=== PATIENT | female | born 1990 | race Caucasian/White ===

== ENCOUNTER 2021-04-03 04:20 | Inpatient (IN) | payer MEDICARE ==
[2021-04-03] MEDS ORDERED: HYDROmorphone 1 MG/ML 1 ML SYRINGE IVP STA (04:29)
[2021-04-03] MEDS ORDERED: IPRATROPIUM-ALBUTEROL 3 ML NEB INHALATION STA (04:29)
[2021-04-03] MEDS ORDERED: ENALAPRILAT 1.25 MG/ML 1 ML VIAL IVP STA ×2 (04:29→06:26)
[2021-04-03] MEDS ORDERED: ACETAMINOPHEN TAB 500 MG TAB PO STA ×2 (04:29→07:48)
[2021-04-03] MEDS ORDERED: hydrALAZINE HCL 20 MG/ML 1 ML VIAL IVP STA (04:29)
[2021-04-03] MEDS ORDERED: SODIUM CHLORIDE 0.9% 1,000 ML IV STA (04:29)
--- NOTE | 2021-04-03 04:37 | ED ---
SOB HPI - General Chief Complaint: Shortness of Breath Stated Complaint: Cough Time Seen by Provider: 04/03/21 04:21 Source: patient, EMS, RN notes reviewed, old records reviewed Mode of arrival: EMS Limitations: no limitations - History of Present Illness MD Complaint: shortness of breath, cough -: days(s) Radiation: other Severity: severe Severity scale (1-10): 10 Quality: aching, throbbing Consistency: constant Improves With: oxygen Worsens With: exertion Known History Of: COPD, congestive heart failure Context: recent URI, anxiety, recent illness Associated Symptoms: chest pain, sputum production, diaphoresis Treatments Prior to Arrival: none - Related Data Allergies Allergy/AdvReac Type Severity Reaction Status Date / Time iodine Allergy Anaphylaxis Verified 04/03/21 04:33 Review of Systems ROS Statement: Those systems with pertinent positive or pertinent negative responses have been documented in the HPI. ROS Other: All systems not noted in ROS Statement are negative. Past Medical History Past Medical History: CVA/TIA, Dialysis, Hypertension Additional Past Medical History / Comment(s): Kidney disease History of Any Multi-Drug Resistant Organisms: None Reported Additional Past Surgical History / Comment(s): fistula left arm Past Psychological History: No Psychological Hx Reported Smoking Status: Never smoker Past Alcohol Use History: None Reported Past Drug Use History: None Reported General Exam Limitations: no limitations General appearance: alert, anxious, in distress Head exam: Present: atraumatic, normocephalic, normal inspection Eye exam: Present: normal appearance, PERRL, EOMI. Absent: scleral icterus, conjunctival injection, periorbital swelling ENT exam: Present: normal exam, mucous membranes dry, mucous membranes moist Neck exam: Present: normal inspection. Absent: tenderness, meningismus, lymphadenopathy Respiratory exam: Present: respiratory distress, rales, rhonchi, accessory muscle use, decreased breath sounds, prolonged expiratory. Absent: wheezes, stridor Cardiovascular Exam: Present: normal rhythm, bradycardia, normal heart sounds. Absent: systolic murmur, diastolic murmur, rubs, gallop, clicks GI/Abdominal exam: Present: soft, normal bowel sounds. Absent: distended, tenderness, guarding, rebound, rigid Extremities exam: Present: normal inspection, full ROM, normal capillary refill. Absent: tenderness, pedal edema, joint swelling, calf tenderness Back exam: Present: normal inspection Neurological exam: Present: alert, oriented X3, CN II-XII intact Psychiatric exam: Present: normal affect, normal mood Skin exam: Present: warm, dry, intact, normal color. Absent: rash Course Vital Signs 04/03/21 04/03/21 04/03/21 04:20 04:30 05:00 Temperature 98.3 F Pulse Rate 93 97 Respiratory 22 36 H 32 H Rate Blood Pressure 236/117 237/121 O2 Sat by Pulse 92 L 86 L Oximetry 04/03/21 04/03/21 05:31 05:52 Temperature Pulse Rate 101 H Respiratory 28 H Rate Blood Pressure 222/134 O2 Sat by Pulse 93 L 97 Oximetry - Reevaluation(s) Reevaluation #1: 04/03/21 06:31 Medical record is reviewed Reevaluation #2: 04/03/21 06:32 Patient continues to cough up blood here in the ER Reevaluation #3: 04/03/21 06:32 Patient is having improved her blood pressure here in the emergency room titrated from nitro drip to Vasotec - Consultations Consultation #1: Spoke with Dr. fermin who will admit this patient Medical Decision Making - Medical Decision Making 30 female to the emergency room. Patient presents today for evaluation regarding severe shortness of breath hypertensive emergency with hemoptysis. Patient be admitted for severe weakness blood pressure control and monitoring of pulse oximetry and cardiac and need for dialysis - Lab Data Result diagrams: 04/03/21 04:47 04/03/21 04:47 Lab Results 04/03/21 04/03/21 04/03/21 Range/Units 04:47 04:47 04:47 WBC 16.0 H (3.8-10.6) k/uL RBC 3.36 L (3.80-5.40) m/uL Hgb 10.3 L (11.4-16.0) gm/dL Hct 30.6 L (34.0-46.0) % MCV 91.2 (80.0-100.0) fL MCH 30.7 (25.0-35.0) pg MCHC 33.7 (31.0-37.0) g/dL RDW 14.2 (11.5-15.5) % Plt Count 254 (150-450) k/uL MPV 8.8 Neutrophils % 91 % Lymphocytes % 3 % Monocytes % 3 % Eosinophils % 1 % Basophils % 0 % Neutrophils # 14.6 H (1.3-7.7) k/uL Lymphocytes # 0.5 L (1.0-4.8) k/uL Monocytes # 0.5 (0-1.0) k/uL Eosinophils # 0.2 (0-0.7) k/uL Basophils # 0.1 (0-0.2) k/uL PT 10.1 (9.0-12.0) sec INR 0.9 (<1.2) APTT 23.0 (22.0-30.0) sec Sodium 133 L (137-145) mmol/L Potassium 4.9 (3.5-5.1) mmol/L Chloride 93 L (98-107) mmol/L Carbon Dioxide 25 (22-30) mmol/L Anion Gap 15 mmol/L BUN 61 H (7-17) mg/dL Creatinine 9.30 H* (0.52-1.04) mg/dL Est GFR (CKD-EPI)AfAm 6 (>60 ml/min/1.73 sqM) Est GFR (CKD-EPI)NonAf 5 (>60 ml/min/1.73 sqM) Glucose 595 H* (74-99) mg/dL Calcium 9.1 (8.4-10.2) mg/dL Magnesium 2.0 (1.6-2.3) mg/dL Total Bilirubin 0.5 (0.2-1.3) mg/dL AST 25 (14-36) U/L ALT 17 (4-34) U/L Alkaline Phosphatase 135 H (38-126) U/L Lactate Dehydrogenase 813 H (313-618) U/L C-Reactive Protein 1.5 H (<1.0) mg/dL Total Protein 6.9 (6.3-8.2) g/dL Albumin 4.3 (3.5-5.0) g/dL Coronavirus (PCR) (Not Detectd) 04/03/21 Range/Units 04:47 WBC (3.8-10.6) k/uL RBC (3.80-5.40) m/uL Hgb (11.4-16.0) gm/dL Hct (34.0-46.0) % MCV (80.0-100.0) fL MCH (25.0-35.0) pg MCHC (31.0-37.0) g/dL RDW (11.5-15.5) % Plt Count (150-450) k/uL MPV Neutrophils % % Lymphocytes % % Monocytes % % Eosinophils % % Basophils % % Neutrophils # (1.3-7.7) k/uL Lymphocytes # (1.0-4.8) k/uL Monocytes # (0-1.0) k/uL Eosinophils # (0-0.7) k/uL Basophils # (0-0.2) k/uL PT (9.0-12.0) sec INR (<1.2) APTT (22.0-30.0) sec Sodium (137-145) mmol/L Potassium (3.5-5.1) mmol/L Chloride (98-107) mmol/L Carbon Dioxide (22-30) mmol/L Anion Gap mmol/L BUN (7-17) mg/dL Creatinine (0.52-1.04) mg/dL Est GFR (CKD-EPI)AfAm (>60 ml/min/1.73 sqM) Est GFR (CKD-EPI)NonAf (>60 ml/min/1.73 sqM) Glucose (74-99) mg/dL Calcium (8.4-10.2) mg/dL Magnesium (1.6-2.3) mg/dL Total Bilirubin (0.2-1.3) mg/dL AST (14-36) U/L ALT (4-34) U/L Alkaline Phosphatase (38-126) U/L Lactate Dehydrogenase (313-618) U/L C-Reactive Protein (<1.0) mg/dL Total Protein (6.3-8.2) g/dL Albumin (3.5-5.0) g/dL Coronavirus (PCR) Not Detected (Not Detectd) - Radiology Data Radiology results: report reviewed (Chest x-ray shows significant diffuse pleural edema), image reviewed Critical Care Time Critical Care Time: Yes Total Critical Care Time: 31 Disposition Clinical Impression: Acute pulmonary edema, Congestive heart failure, Hypertensive emergency, CKD (chronic kidney disease), ARF (acute renal failure), Hyperglycemia Disposition: ADMITTED IP TO THIS [facility] Condition: Serious Is patient prescribed a controlled substance at d/c from ED?: No Referrals: Edith Cruz MD [Primary Care Provider] - 1-2 days
[2021-04-03 04:59] LABS: Basophils # (A) 0.1 k/uL (0-0.2); Basophils % (A) 0 %; Eosinophils # (A) 0.2 k/uL (0-0.7); Eosinophils % (A) 1 %; HCT 30.6 % (34.0-46.0); HGB 10.3 gm/dL (11.4-16.0); Lymphocytes # (A) 0.5 k/uL (1.0-4.8); Lymphocytes % (A) 3 %; MCH 30.7 pg (25.0-35.0); MCHC 33.7 g/dL (31.0-37.0); MCV 91.2 fL (80.0-100.0); Mean Platelet Volume 8.8; Monocytes # (A) 0.5 k/uL (0-1.0); Monocytes % (A) 3 %; Neutrophils # (A) 14.6 k/uL (1.3-7.7); Neutrophils % (A) 91 %; Platelet Count 254 k/uL (150-450); RBC 3.36 m/uL (3.80-5.40); RDW 14.2 % (11.5-15.5)
[2021-04-03] MEDS ORDERED: PROCHLORPERAZINE INJ 10 MG/2 ML VIAL IVP STA (05:02)
--- NOTE | 2021-04-03 05:09 | XR ---
EXAMINATION TYPE: XR chest 1V portable DATE OF EXAM: 04/03/2021 COMPARISON: NONE HISTORY: Pneumonia TECHNIQUE: Single view FINDINGS: Heart is enlarged. There is patchy pulmonary interstitial and airspace edema. There is no d efinite pleural effusion. Bony thorax is intact. IMPRESSION: Pulmonary edema. This could relate to heart failure or RDS.
[2021-04-03 05:15] LABS: Albumin 4.3 g/dL (3.5-5.0); C Reactive Protein 1.5 mg/dL (<1.0); Calcium 9.1 mg/dL (8.4-10.2); Potassium 4.9 mmol/L (3.5-5.1); Total Bilirubin 0.5 mg/dL (0.2-1.3); Total Protein 6.9 g/dL (6.3-8.2)
[2021-04-03] MEDS ORDERED: NITROGLYCERIN-D5W PMX 50 MG in DEXTROSE/WATER 1 250ML.BAG IV ONE (05:15)
[2021-04-03 05:27] LABS: INR 0.9 (<1.2); Prothrombin Time 10.1 sec (9.0-12.0)
[2021-04-03] MEDS ORDERED: INSULIN REGULAR 100 UNIT/ML VIAL (IM/SQ) SQ ONE (06:33)
[2021-04-03] MEDS ORDERED: INSULIN REGULAR 100 UNIT/ML VIAL (IV) IV ONE (06:33)
[2021-04-03] MEDS: SODIUM CHLORIDE 0.9% 1,000 ML IV SCH ×2 (06:37→14:04)
[2021-04-03 06:41] LABS: Glucose,Whole Blood 587 mg/dL (75-99)
[2021-04-03 07:41] LABS: Glucose,Whole Blood 532 mg/dL (75-99)
[2021-04-03] MEDS: SODIUM CHLORIDE 0.9% 1,000 ML IV ONE ×2 (07:46→08:11)
[2021-04-03] MEDS ORDERED: INSULIN DETEMIR (LEVEMIR) 100 UNIT/ML SYR SQ SCH (09:00)
[2021-04-03 09:06] LABS: Glucose,Whole Blood 364 mg/dL (75-99)
[2021-04-03] MEDS: amLODIPine 10 MG TAB PO SCH (09:28)
[2021-04-03] MEDS: FUROSEMIDE 40 MG TAB PO SCH ×2 (09:28→16:35)
[2021-04-03] MEDS: HEPARIN SODIUM,PORCINE/PF 5,000 UNIT/0.5 ML SYRINGE SQ SCH ×2 (09:28→21:48)
[2021-04-03] MEDS: hydrALAZINE HCL 25 MG TAB PO SCH ×3 (09:29→21:49)
[2021-04-03] MEDS: carvediloL 12.5 MG TAB PO SCH ×2 (09:29→16:35)
[2021-04-03] MEDS: hydrALAZINE HCL 50 MG TAB PO SCH ×3 (09:29→21:49)
[2021-04-03] MEDS: ASPIRIN 81 MG PO SCH (09:29)
[2021-04-03] MEDS: PANTOPRAZOLE 40 MG TABLET PO SCH (09:29)
[2021-04-03] MEDS: ISOSORBIDE MONONITRATE ER 30 MG TAB.ER.24H PO SCH (09:29)
[2021-04-03] MEDS: INSULIN ASPART (NovoLOG) 100 UNIT/ML VIAL SQ SCH ×4 (09:32→21:48)
[2021-04-03] MEDS: ESCITALOPRAM 10 MG TAB PO SCH (10:06)
[2021-04-03 11:11] LABS: Glucose,Whole Blood 86 mg/dL (75-99)
[2021-04-03 11:44] LABS: Glucose,Whole Blood 61 mg/dL (75-99)
[2021-04-03] MEDS: DEXTROSE 50% SYRINGE 50 ML IVP STA ×3 (11:51→14:57)
--- NOTE | 2021-04-03 12:06 | CONS ---
CONSULTATION REASON FOR CONSULT: End-stage renal disease. HISTORY OF PRESENT ILLNESS: The patient is a 30-year-old female with end-stage renal disease, on hemodialysis on a Monday, Monday, Monday schedule. The patient missed her dialysis on Monday and is admitted now with complaints of significant shortness of breath. She has been having cough which gets worse when she lays down. Patient reports that her son was sick and was in the ER yesterday and therefore she could not go to her scheduled dialysis treatment. PAST MEDICAL HISTORY: End-stage renal disease, CKD mineral bone disorder, hypertension, type 1 diabetes and gastroesophageal reflux disease. PAST SURGICAL HISTORY: AV fistula. SOCIAL HISTORY: Negative for smoking, drug abuse or alcohol abuse. MEDICATIONS: Prior to admission included vitamin D, insulin, Norvasc, Protonix, Imdur, Avapro, PhosLo, hydralazine, Lasix, Lexapro, Coreg, aspirin. REVIEW OF SYSTEMS: As per HPI. Other systems negative. EXAMINATION: Comfortable. Blood pressure 159/87, earlier this morning, 182/94, and temperature 98.3, T-max 100.7 earlier. Examination of the heart S1, S2. Examination of the lungs, bilateral breath sounds are heard. Abdomen is soft, nontender. Examination of lower extremities shows 1+ edema. PERSONNEL GENERALIST MANAGER exam grossly intact. LABS: Show hemoglobin 10.3, sodium 133, potassium 4.9, BUN 61, creatinine 9.3, glucose 595. ASSESSMENT: 1. End-stage renal disease, on hemodialysis on a Monday, Monday, Monday schedule via left forearm AV fistula. 2. Volume overload expect improvement with hemodialysis today. 3. Hyperglycemia with blood sugar 595. When patient initially came in, it is decreased to 364 and now 86. 4. CKD mineral bone disorder. 5. Hypertension partly volume sensitive. PLAN: Hemodialysis today. UF of about 4 L as tolerated. Discontinue IV fluids. Continue with phosphate binders. Continue home blood pressure medications. Check UA as patient had low-grade fever. Chest x-ray does not show significant infiltrates, mostly changes suggestive of congestive heart failure. Consider repeating chest x-ray post dialysis if patient remains febrile. MMODL / IJN: [id number] /
[2021-04-03 12:13] LABS: Glucose,Whole Blood 89 mg/dL (75-99)
--- NOTE | 2021-04-03 13:11 | P.HPIM ---
History of Present Illness This is a pleasant 30 years old female with past medical history of end-stage renal disease on hemodialysis, hypertension, CVA/TIA. Presents because of exertional dyspnea of 1-2 days' duration after she missed her hemodialysis. Patient presents with cough and secretions but no phlegm. Also she has some diarrhea which is is down on the presentation. No abdominal pain but she vomited about 6-7 time. No chest pain. She has dyspnea of one-day duration as well. She does not make significant amount of urine. She missed her hemodialysis yesterday because she was supposed to take he sick son from Hospital back to home after his been treated for pneumonia I offered to do test and she declines. Risks and benefits are explained On the presentation she was hypertensive 237/121, currently blood pressure is 182/94 Labs showed leukocytosis of 16 K, unknown baseline. INR 0.9. Rest of CBC is unremarkable except for hemoglobin of 10.3. BMP shows sodium 133, creatinine 9.3, glucose 595 Liver enzymes [place] [address] Coronavirus not detected. EKG showed normal sinus rhythm at [address]-T changes and QTC at 467. Chest x-ray: Pulmonary edema. Review of Systems CONSTITUTIONAL: No fever, no malaise, no fatigue. HEENT: No recent visual problems or hearing problems. Denied any sore throat. CARDIOVASCULAR: No orthopnea, PND, no palpitations, no syncope. PULMONARY: No shortness of breath, no cough, no hemoptysis. GASTROINTESTINAL: No diarrhea, no nausea, no vomiting, no abdominal pain. Normoactive bowel sounds. NEUROLOGICAL: No headaches, no weakness, no numbness. HEMATOLOGICAL: Denies any bleeding or petechiae. GENITOURINARY: Denies any burning micturition, frequency, or urgency. MUSCULOSKELETAL/RHEUMATOLOGICAL: Denies any joint pain, swelling, or any muscle pain. ENDOCRINE: Denies any polyuria or polydipsia. Past Medical History Past Medical History: CVA/TIA, Dialysis, Hypertension Additional Past Medical History / Comment(s): Kidney disease History of Any Multi-Drug Resistant Organisms: None Reported Additional Past Surgical History / Comment(s): fistula left arm Past Psychological History: No Psychological Hx Reported Smoking Status: Never smoker Past Alcohol Use History: None Reported Past Drug Use History: None Reported Medications and Allergies Home Medications Medication Instructions Recorded Confirmed Type Aspirin EC [Ecotrin Low Dose] 81 mg PO DAILY 04/03/21 04/03/21 History Calcium Acetate 668mg 1,336 mg PO TID-W/MEALS 04/03/21 04/03/21 History Carvedilol [Coreg] 25 mg PO BID 04/03/21 04/03/21 History Ergocalciferol (Vitamin D2) 1,250 mcg PO WEEKLY 04/03/21 04/03/21 History [Drisdol (50,000 Iu)] Escitalopram [Lexapro] 10 mg PO DAILY 04/03/21 04/03/21 History Furosemide [Lasix] 40 mg PO BID 04/03/21 04/03/21 History INSULIN LISPRO (HumaLOG) [humaLOG] See Protocol SQ AC-TID 04/03/21 04/03/21 History Insulin Glargine [Lantus Vial] 22 unit SQ DAILY 04/03/21 04/03/21 History Irbesartan [Avapro] 75 mg PO DAILY 04/03/21 04/03/21 History Isosorbide Mononitrate ER [Imdur] 30 mg PO DAILY 04/03/21 04/03/21 History Pantoprazole Sodium [Protonix] 40 mg PO DAILY 04/03/21 04/03/21 History amLODIPine [Norvasc] 10 mg PO DAILY 04/03/21 04/03/21 History hydrALAZINE HCL [Apresoline] 25 mg PO TID 04/03/21 04/03/21 History hydrALAZINE HCL [Apresoline] 100 mg PO TID 04/03/21 04/03/21 History Allergies Allergy/AdvReac Type Severity Reaction Status Date / Time iodine Allergy Anaphylaxis Verified 04/03/21 08:33 Physical Exam Vitals: Vital Signs Temp Pulse Resp BP Pulse Ox 04/03/21 08:25 91 15 182/94 95 04/03/21 07:43 100.7 F H 04/03/21 07:08 97 22 183/94 97 04/03/21 06:40 102 H 20 173/91 04/03/21 05:52 97 04/03/21 05:31 101 H 28 H 222/134 93 L 04/03/21 05:00 32 H 04/03/21 04:30 98.3 F 97 36 H 237/121 86 L 04/03/21 04:20 93 22 236/117 92 L Intake and Output 04/02/21 04/03/21 04/03/21 22:59 06:59 14:59 Intake Total 7.5 Balance 7.5 Intake: Intake, IV Titration 7.5 Amount Nitroglycerin-D5w Pmx 50 7.5 mg In Dextrose/Water 1 250ml.bag @ 20 MCG/MIN 6 mls/hr IV .Q24H ONE Rx#: [id number] Other: Weight 49.895 kg GENERAL: The patient is alert and oriented x3, not in any acute distress. Well developed, well nourished. HEENT: Pupils are round and equally reacting to light. EOMI. No scleral icterus. No conjunctival pallor. Normocephalic, atraumatic. No pharyngeal erythema. No thyromegaly. CARDIOVASCULAR: S1 and S2 present. No murmurs, rubs, or gallops. PULMONARY: Chest is clear to auscultation, no wheezing or crackles. ABDOMEN: Soft, nontender, nondistended, normoactive bowel sounds. No palpable organomegaly. MUSCULOSKELETAL: No joint swelling or deformity. EXTREMITIES: No cyanosis, clubbing, or pedal edema. NEUROLOGICAL: Gross neurological examination did not reveal any focal deficits. SKIN: No rashes. No petechiae Results CBC & Chem 7: 04/03/21 04:47 04/03/21 04:47 Labs: Abnormal Lab Results - Last 24 Hours (Table) 04/03/21 04/03/21 04/03/21 Range/Units 04:47 04:47 06:39 WBC 16.0 H (3.8-10.6) k/uL RBC 3.36 L (3.80-5.40) m/uL Hgb 10.3 L (11.4-16.0) gm/dL Hct 30.6 L (34.0-46.0) % Neutrophils # 14.6 H (1.3-7.7) k/uL Lymphocytes # 0.5 L (1.0-4.8) k/uL Sodium 133 L (137-145) mmol/L Chloride 93 L (98-107) mmol/L BUN 61 H (7-17) mg/dL Creatinine 9.30 H* (0.52-1.04) mg/dL Glucose 595 H* (74-99) mg/dL POC Glucose (mg/dL) 587 H (75-99) mg/dL Alkaline Phosphatase 135 H (38-126) U/L Lactate Dehydrogenase 813 H (313-618) U/L C-Reactive Protein 1.5 H (<1.0) mg/dL 04/03/21 Range/Units 07:39 WBC (3.8-10.6) k/uL RBC (3.80-5.40) m/uL Hgb (11.4-16.0) gm/dL Hct (34.0-46.0) % Neutrophils # (1.3-7.7) k/uL Lymphocytes # (1.0-4.8) k/uL Sodium (137-145) mmol/L Chloride (98-107) mmol/L BUN (7-17) mg/dL Creatinine (0.52-1.04) mg/dL Glucose (74-99) mg/dL POC Glucose (mg/dL) 532 H (75-99) mg/dL Alkaline Phosphatase (38-126) U/L Lactate Dehydrogenase (313-618) U/L C-Reactive Protein (<1.0) mg/dL Assessment and Plan Assessment: Fever, unknown origin. Possible pneumonia Uncontrolled hypertension with urgency upon admission End-stage renal disease on hemodialysis, missed hemodialysis on the presentation Acute diastolic CHF with unknown ejection fraction present on admission Diabetes mellitus with Hyperglycemia History of CVA/TIA Nonadherence to therapy Plan: This is a pleasant 30 years old female who presents with uncontrolled hypertension and missed hemodialysis. Nephrology consult and continue with hemodialysis per recommendation Restart her home medication of blood pressure. Monitor blood pressure closely Continue with insulin sliding scale and check hemoglobin A1c. Labs and medication were reviewed.. Continue same treatment. Continue with symptomatic treatment. Resume home medication. Monitor lytes and vitals. DVT and GI prophylaxis. Further recommendations depends on the clinical course of the patient DVT prophylaxis: Subcutaneous heparin GI Prophylaxis: Pepcid Prognosis is guarded
[2021-04-03] MEDS ORDERED: ONDANSETRON 4 MG/2 ML VIAL IVP PRN (13:16)
[2021-04-03 13:35] LABS: Glucose,Whole Blood 44 mg/dL (75-99)
[2021-04-03] MEDS: ENALAPRILAT 1.25 MG/ML 1 ML VIAL IVP SCH ×3 (13:36→20:44)
[2021-04-03 13:52] LABS: Glucose,Whole Blood 132 mg/dL (75-99)
[2021-04-03] MEDS: PIPERACILLIN-TAZOBACTAM 3.375 GM in SODIUM CHLORIDE 0.9% 100 ML IVPB SCH ×2 (14:04→21:49)
[2021-04-03 14:53] LABS: Glucose,Whole Blood 53 mg/dL (75-99)
[2021-04-03 15:26] LABS: Glucose,Whole Blood 114 mg/dL (75-99)
--- NOTE | 2021-04-03 15:36 | P.CRDCN ---
History of Present Illness History of present illness: HISTORY OF PRESENTING ILLNESS This is a pleasant 30-year-old with past medical history significant for diabetes mellitus, hypertension, stroke, end-stage renal disease on hemodialysis who presents secondary to episodes of feeling nauseous with vomiting and with elevated blood pressure. She states her son was recently in the hospital and she had missed her dialysis yesterday secondary to picking her son up from the hospital. She states over the last 24 hours she has felt more ill with upset stomach, nauseous and vomiting. She states also her blood pressure is very elevated. She did undergo hemodialysis this morning and feels back to normal. She denies any chest pain or pressure. She did have recent workup at [facility], results currently not available however denies any cardiac history. REVIEW OF SYSTEMS At the time of my exam: CONSTITUTIONAL: Denies fever or chills. CARDIOVASCULAR: Denies chest pain, +shortness of breath, no PND or palpitations. RESPIRATORY: Denies cough. GASTROINTESTINAL: Denies abdominal pain, diarrhea, constipation, nausea or vomiting. MUSCULOSKELETAL: Denies myalgias. NEUROLOGIC: Denies numbness, tingling or weakness. ENDOCRINE: Denies fatigue, weight change, polydipsia or polyurina. GENITOURINARY: Denies burning, hematuria or urgency with micturation. HEMATOLOGIC: Denies history of anemia or bleeding. PHYSICAL EXAMINATION Vital signs reviewed. CONSTITUTIONAL: No apparent distress. HEENT: Head is normocephalic. Pupils are equal, round. Sclerae anicteric. Mucous membranes of the mouth are moist. No JVD. No carotid bruit. CHEST EXAMINATION: Lungs are clear to auscultation. No chest wall tenderness is noted on palpation or with deep breathing. HEART EXAMINATION: Regular rate and rhythm. S1, S2 heard. No murmurs, gallops or rub. ABDOMEN: Soft, nontender. Positive bowel sounds. EXTREMITIES: 2+ peripheral pulses, no lower extremity edema and no calf tenderness. NEUROLOGIC EXAMINATION: Patient is awake, alert and oriented x3. ASSESSMENT 1. Acute volume overload related to missing dialysis, renal failure 2. End-stage renal disease on hemodialysis 3. Hypertension 4. Diabetes mellitus 5. History of stroke 6. Nausea, vomiting may be related to hypertension and missing dialysis versus other PLAN Patient's main presentation appears consistent with volume overload and missing dialysis. Patient feels much better currently with blood pressure better controlled. Echocardiogram was performed this morning and we will evaluate. If no significant findings on echo, no further recommendations from a cardiology standpoint. Please call with any questions. Past Medical History Past Medical History: CVA/TIA, Dialysis, Hypertension Additional Past Medical History / Comment(s): Kidney disease History of Any Multi-Drug Resistant Organisms: None Reported Additional Past Surgical History / Comment(s): fistula left arm Past Psychological History: No Psychological Hx Reported Smoking Status: Never smoker Past Alcohol Use History: None Reported Past Drug Use History: None Reported Medications and Allergies Home Medications Medication Instructions Recorded Confirmed Type Aspirin EC [Ecotrin Low Dose] 81 mg PO DAILY 04/03/21 04/03/21 History Calcium Acetate 668mg 1,336 mg PO TID-W/MEALS 04/03/21 04/03/21 History Carvedilol [Coreg] 25 mg PO BID 04/03/21 04/03/21 History Ergocalciferol (Vitamin D2) 1,250 mcg PO WEEKLY 04/03/21 04/03/21 History [Drisdol (50,000 Iu)] Escitalopram [Lexapro] 10 mg PO DAILY 04/03/21 04/03/21 History Furosemide [Lasix] 40 mg PO BID 04/03/21 04/03/21 History INSULIN LISPRO (HumaLOG) [humaLOG] See Protocol SQ AC-TID 04/03/21 04/03/21 History Insulin Glargine [Lantus Vial] 22 unit SQ DAILY 04/03/21 04/03/21 History Irbesartan [Avapro] 75 mg PO DAILY 04/03/21 04/03/21 History Isosorbide Mononitrate ER [Imdur] 30 mg PO DAILY 04/03/21 04/03/21 History Pantoprazole Sodium [Protonix] 40 mg PO DAILY 04/03/21 04/03/21 History amLODIPine [Norvasc] 10 mg PO DAILY 04/03/21 04/03/21 History hydrALAZINE HCL [Apresoline] 25 mg PO TID 04/03/21 04/03/21 History hydrALAZINE HCL [Apresoline] 100 mg PO TID 04/03/21 04/03/21 History Allergies Allergy/AdvReac Type Severity Reaction Status Date / Time iodine Allergy Anaphylaxis Verified 04/03/21 08:33 Physical Exam Vitals: Vital Signs Temp Pulse Resp BP Pulse Ox 04/03/21 15:31 98.1 F 75 18 132/74 99 04/03/21 14:00 73 18 160/87 100 04/03/21 12:10 74 18 132/60 100 04/03/21 10:05 85 159/87 04/03/21 08:38 98.9 F 04/03/21 08:25 91 15 182/94 95 04/03/21 07:43 100.7 F H 04/03/21 07:08 97 22 183/94 97 04/03/21 06:40 102 H 20 173/91 04/03/21 05:52 97 04/03/21 05:31 101 H 28 H 222/134 93 L 04/03/21 05:00 32 H 04/03/21 04:30 98.3 F 97 36 H 237/121 86 L 04/03/21 04:20 93 22 236/117 92 L Intake and Output 04/03/21 04/03/21 04/03/21 06:59 14:59 22:59 Intake Total 7.5 Balance 7.5 Intake: Intake, IV Titration 7.5 Amount Nitroglycerin-D5w Pmx 50 7.5 mg In Dextrose/Water 1 250ml.bag @ 20 MCG/MIN 6 mls/hr IV .Q24H ONE Rx#: [id number] Other: Weight 49.895 kg Results 04/03/21 04:47 04/03/21 04:47 Cardiac Enzymes 04/03/21 Range/Units 04:47 AST 25 (14-36) U/L Lactate Dehydrogenase 813 H (313-618) U/L Coagulation 04/03/21 Range/Units 04:47 PT 10.1 (9.0-12.0) sec APTT 23.0 (22.0-30.0) sec CBC 04/03/21 Range/Units 04:47 WBC 16.0 H (3.8-10.6) k/uL RBC 3.36 L (3.80-5.40) m/uL Hgb 10.3 L (11.4-16.0) gm/dL Hct 30.6 L (34.0-46.0) % Plt Count 254 (150-450) k/uL Comprehensive Metabolic Panel 04/03/21 Range/Units 04:47 Sodium 133 L (137-145) mmol/L Potassium 4.9 (3.5-5.1) mmol/L Chloride 93 L (98-107) mmol/L Carbon Dioxide 25 (22-30) mmol/L BUN 61 H (7-17) mg/dL Creatinine 9.30 H* (0.52-1.04) mg/dL Glucose 595 H* (74-99) mg/dL Calcium 9.1 (8.4-10.2) mg/dL AST 25 (14-36) U/L ALT 17 (4-34) U/L Alkaline Phosphatase 135 H (38-126) U/L Total Protein 6.9 (6.3-8.2) g/dL Albumin 4.3 (3.5-5.0) g/dL Current Medications Generic Name Dose Route Start Last Admin Trade Name Freq PRN Reason Stop Dose Admin Amlodipine Besylate 10 mg 04/03/21 09:00 04/03/21 09:28 Amlodipine 10 Mg Tab PO 10 mg DAILY CHAD Administration Aspirin 81 mg 04/03/21 09:00 04/03/21 09:29 Aspirin 81 Mg PO 81 mg DAILY CHAD Administration Carvedilol 25 mg 04/03/21 09:00 04/03/21 09:29 Carvedilol 12.5 Mg Tab PO 25 mg BID-W/MEALS CHAD Administration Enalaprilat 1.25 mg 04/03/21 12:00 04/03/21 13:36 Enalaprilat 1.25 Mg/Ml 1 Ml Vial IVP Not Given Q6HR [facility] Escitalopram Oxalate 10 mg 04/03/21 09:00 04/03/21 10:06 Escitalopram 10 Mg Tab PO 10 mg DAILY CHAD Administration Furosemide 40 mg 04/03/21 09:00 04/03/21 09:28 Furosemide 40 Mg Tab PO 40 mg BID@0900,1600 CHAD Administration Heparin Sodium (Porcine) 5,000 unit 04/03/21 09:00 04/03/21 09:28 Heparin Sodium,Porcine/Pf 5,000 Unit/0.5 Ml Syringe SQ 5,000 unit Q12HR [facility]AD Administration Hydralazine HCl 25 mg 04/03/21 09:00 04/03/21 09:29 Hydralazine Hcl 25 Mg Tab PO 25 mg TID CHAD Administration Hydralazine HCl 100 mg 04/03/21 09:00 04/03/21 09:29 Hydralazine Hcl 50 Mg Tab PO 100 mg TID CHAD Administration Nitroglycerin/Dextrose 50 mg/ 250 mls @ 6 mls/hr 04/03/21 05:15 04/03/21 06:41 IV Solution IV 04/04/21 05:14 0 mcg/min .Q24H ONE 0 mls/hr Titration Protocol 20 MCG/MIN Sodium Chloride 1,000 mls @ 20 mls/hr 04/03/21 06:30 04/03/21 14:04 Saline 0.9% IV 20 mls/hr .Q24H [facility]AD Administration Piperacillin Sod/Tazobactam 100 mls @ 25 mls/hr 04/03/21 10:30 04/03/21 14:04 Sod 3.375 gm/ Sodium Chloride IVPB 25 mls/hr Q12HR [facility] Administration Insulin Aspart 0 unit 04/03/21 09:15 04/03/21 13:02 Insulin Aspart (Novolog) 100 Unit/Ml Vial SQ Not Given ACHS [facility] Protocol Insulin Detemir 22 unit 04/03/21 09:00 04/03/21 10:06 Insulin Detemir (Levemir) 100 Unit/Ml Syr SQ 22 unit DAILY@0700 [facility] Administration Isosorbide Mononitrate 30 mg 04/03/21 09:00 04/03/21 09:29 Isosorbide Mononitrate Er 30 Mg Tab.Er.24h PO 30 mg DAILY [facility]AD Administration Ondansetron HCl 4 mg 04/03/21 13:16 04/03/21 13:36 Ondansetron 4 Mg/2 Ml Vial IVP 4 mg Q6HR PRN Administration Nausea And Vomiting Pantoprazole Sodium 40 mg 04/03/21 09:00 04/03/21 09:29 Pantoprazole 40 Mg Tablet PO 40 mg AC-BRKFST [facility] Administration Intake and Output 04/03/21 04/03/21 04/03/21 06:59 14:59 22:59 Intake Total 7.5 Balance 7.5 Intake: Intake, IV Titration 7.5 Amount Nitroglycerin-D5w Pmx 50 7.5 mg In Dextrose/Water 1 250ml.bag @ 20 MCG/MIN 6 mls/hr IV .Q24H ONE Rx#: [id number] Other: Weight 49.895 kg 04/03/21 04:47 04/03/21 04:47
[2021-04-03 16:14] LABS: Glucose,Whole Blood 115 mg/dL (75-99)
--- NOTE | 2021-04-03 17:00 | ECHOF ---
Referral Reason:Heart Failure MEASUREMENTS -------- HEIGHT: 160.0 cm WEIGHT: 49.9 kg BP: 183/94 RVIDd: 3.5 cm (< 3.3) IVSd: 1.3 cm (0.6 - 1.1) LVIDd: 4.5 cm (3.9 - 5.3) LVPWd: 1.5 cm (0.6 - 1.1) IVSs: 1.6 cm LVIDs: 3.1 cm LVPWs: 2.0 cm LAESV Index (A-L): 24.83 ml/m Ao Diam: 2.6 cm (2.0 - 3.7) AV Cusp: 1.6 cm (1.5 - 2.6) LA Diam: 3.7 cm (2.7 - 3.8) MV EXCURSION: 15.184 mm (> 18.000) MV EF SLOPE: 34 mm/s (70 - 150) EPSS: 0.8 cm MV E Km: 1.42 m/s MV DecT: 166 ms MV A Km: 1.40 m/s MV E/A Ratio: 1.01 AV maxP.23 mmHg AV meanP.66 mmHg RAP: 5.00 mmHg RVSP: 66.76 mmHg FINDINGS -------- Sinus rhythm. This was a technically adequate study. The left ventricular size is normal. There is mild concentric left ventricular hypertrophy. Overa ll left ventricular systolic function is normal with, an EF between 55 - 60 %. The diastolic fillin g pattern is normal for the age of the patient 24.04. The right ventricle is mildly enlarged. Normal LA size by volume 22+/-6 ml/m2. The right atrial size is normal. Interatrial and interventricular septum intact. The aortic valve is trileaflet and appears structurally normal. There is no evidence of aortic regu rgitation. There is mild aortic stenosis present. The maximum velocity across the aortic valve is 2.08m/s. Peak/mean gradient across the Aortic Valve is 17.23mmHg / 8.66mmHg. No mitral regurgitation. Moderate tricuspid regurgitation present. There is moderate pulmonary hypertension. The right heide tricular systolic pressure, as measured by Doppler, is 66.76mmHg. There is no pulmonic regurgitation present. The aortic root size is normal. IVC Not well visulized. There is a small, generalized pericardial effusion present. CONCLUSIONS -------- 1. The left ventricular size is normal. 2. There is mild concentric left ventricular hypertrophy. 3. Overall left ventricular systolic function is normal with, an EF between 55 - 60 %. 4. The right ventricle is mildly enlarged. 5. There is mild aortic stenosis present. 6. The maximum velocity across the aortic valve is 2.08m/s. 7. Peak/mean gradient across the Aortic Valve is 17.23mmHg / 8.66mmHg. 8. Moderate tricuspid regurgitation present. 9. There is moderate pulmonary hypertension. 10. The right ventricular systolic pressure, as measured by Doppler, is 66.76mmHg. 11. There is a small, generalized pericardial effusion present. ENTERPRISE MANAGER: Maryjane Andrews RDCS
[2021-04-03 17:31] LABS: Glucose,Whole Blood 137 mg/dL (75-99)
[2021-04-03 20:43] LABS: Glucose,Whole Blood 154 mg/dL (75-99)
[2021-04-03 21:22] LABS: Glucose,Whole Blood 177 mg/dL (75-99)
[2021-04-04] MEDS: ENALAPRILAT 1.25 MG/ML 1 ML VIAL IVP SCH ×5 (01:11→23:14)
[2021-04-04 02:00] LABS: Glucose,Whole Blood 74 mg/dL (75-99)
[2021-04-04 02:00] LABS: Glucose,Whole Blood 53 mg/dL (75-99)
[2021-04-04] MEDS: SODIUM CHLORIDE 0.9% 1,000 ML IV SCH ×2 (05:30→23:18)
[2021-04-04] MEDS: carvediloL 12.5 MG TAB PO SCH ×2 (06:22→19:02)
[2021-04-04] MEDS: PANTOPRAZOLE 40 MG TABLET PO SCH (06:22)
[2021-04-04 06:53] LABS: Glucose,Whole Blood 378 mg/dL (75-99)
[2021-04-04] MEDS: INSULIN ASPART (NovoLOG) 100 UNIT/ML VIAL SQ SCH ×6 (06:58→20:52)
[2021-04-04] MEDS ORDERED: INSULIN DETEMIR (LEVEMIR) 100 UNIT/ML SYR SQ SCH (07:00)
[2021-04-04] MEDS ORDERED: guaiFENesin SYRUP 100MG/5ML 200 MG/10 ML CUP PO STA (08:04)
[2021-04-04] MEDS ORDERED: guaiFENesin-DM 100-10MG/5ML 10 ML CUP PO STA (08:22)
[2021-04-04] MEDS: ACETAMINOPHEN TAB 325 MG TAB PO PRN (08:35)
[2021-04-04] MEDS: hydrALAZINE HCL 50 MG TAB PO SCH ×3 (08:36→20:53)
[2021-04-04] MEDS: ESCITALOPRAM 10 MG TAB PO SCH (08:37)
[2021-04-04] MEDS: amLODIPine 10 MG TAB PO SCH (08:37)
[2021-04-04] MEDS: ASPIRIN 81 MG PO SCH (08:37)
[2021-04-04] MEDS: PIPERACILLIN-TAZOBACTAM 3.375 GM in SODIUM CHLORIDE 0.9% 100 ML IVPB SCH ×2 (08:43→20:52)
[2021-04-04] MEDS: FUROSEMIDE 40 MG TAB PO SCH ×2 (08:43→19:02)
[2021-04-04] MEDS: HEPARIN SODIUM,PORCINE/PF 5,000 UNIT/0.5 ML SYRINGE SQ SCH ×2 (08:44→20:54)
--- NOTE | 2021-04-04 09:24 | P.CONS ---
History of Present Illness - Reason for Consult Consult date: 04/03/21 pneumonia Requesting physician: Williams E Sheet - Chief Complaint shortness of breath and cough x 2 days - History of Present Illness History of present illness : Patient is a 30-year-old female with a past medical history sniffing for diabetes mellitus, end-stage renal disease on hemodialysis, presenting to the ER for evaluation of cough and shortness of breath, patient symptom has been going on for 1 to 2 days before presentation to the hospital the patient did have a cough which is moderate in intensity but not bringing up any sputum denies any pleuritic chest pain also complaining of shortness of breath with it patient also having diarrhea with multiple loose stools and did have vomiting as well patient on presentation to the hospital did have a fever 100.7 F patient was mildly hypoxic requiring supplemental oxygen patient did have white count 16,000 with a left shift patient did have elevated BUN and creatinine liver enzymes are normal procalcitonin is elevated arnold PCR was negative patient did have a chest x-ray patchy pulmonary syncytial and airspace edema no effusion patient was started on Zosyn has been admitted to hospital infectious disease was consulted because of pneumonia, patient mentioned that her son was just discharged in the hospital with similar symptoms and was treated for pneumonia Review of system: CONSTITUTIONAL: Positive for weakness along with the fever. EYES: No complaint. ENT: No complaint. RESPIRATORY: As per history of present illness. CARDIOVASCULAR: No complaint. GENITOURINARY: No complaint. GASTROINTESTINAL: As per history of present illness. MUSCULOSKELETAL: No complaint. INTEGUMENTARY: No complaint. PSYCHOLOGIC: No complaint. ENDOCRINE: No complaint. NEUROLOGIC: No complaint. Past medical history : Reviewed, documented below Past surgical history : Reviewed, documented below Social history: Reviewed, documented below Medications: Reviewed, as documented below EXAMINATION: Vital sigans= Reviewed and documented below GENERAL DESCRIPTION: Middle-aged female lying in bed, no distress. No tachypnea or accessory muscle of respiration use. HEENT: Shows Pallor , no scleral icterus. Oral mucous membrane is dry. NECK: Trachea central, no thyromegaly. LUNGS: Unlabored breathing. Decrease intensity of breath sounds. No wheeze or crackle. HEART: S1, S2, regular rate and rhythm. ABDOMEN: Soft, no tenderness , guarding or rigidity EXTREMITIES: No edema of feet. SKIN: No rash, no masses palpable. NEUROLOGICAL: The patient is awake, alert, oriented x3, mood and affect normal. LABS AND RADIOLOGY: Reviewed results see below Assessment : 1-Patient presented to hospital with increasing shortness of breath and cough in this patient who did have fever elevated white count elevated. Procalcitonin with evidence of presentation pneumonia question of possible atypical bacterial pneumonia in view of elevated procalcitonin patient has been ruled out for COVID-19 infection 2-patient on SSRI that is contraindicating the use of Levaquin or Zithromax Plan: 1-obtain sputum for Gram stain and culture 2-check urine for Legionella antigen 3-continue with Zosyn add doxycycline We will follow on clinical condition and cultures to further adjust medication if needed Thank you for this consultation we will follow the patient along with you Past Medical History Past Medical History: CVA/TIA, Dialysis, Hypertension Additional Past Medical History / Comment(s): Kidney disease History of Any Multi-Drug Resistant Organisms: None Reported Additional Past Surgical History / Comment(s): fistula left arm Past Psychological History: No Psychological Hx Reported Smoking Status: Never smoker Past Alcohol Use History: None Reported Past Drug Use History: None Reported - Past Family History Mother Family Medical History: Cancer, Hypertension Additional Family Medical History / Comment(s): Thyroid cancer, bipolar Father Additional Family Medical History / Comment(s): Epilepsy Medications and Allergies Home Medications Medication Instructions Recorded Confirmed Type Aspirin EC [Ecotrin Low Dose] 81 mg PO DAILY 04/03/21 04/03/21 History Calcium Acetate 668mg 1,336 mg PO TID-W/MEALS 04/03/21 04/03/21 History Carvedilol [Coreg] 25 mg PO BID 04/03/21 04/03/21 History Ergocalciferol (Vitamin D2) 1,250 mcg PO WEEKLY 04/03/21 04/03/21 History [Drisdol (50,000 Iu)] Escitalopram [Lexapro] 10 mg PO DAILY 04/03/21 04/03/21 History Furosemide [Lasix] 40 mg PO BID 04/03/21 04/03/21 History INSULIN LISPRO (HumaLOG) [humaLOG] See Protocol SQ AC-TID 04/03/21 04/03/21 History Insulin Glargine [Lantus Vial] 22 unit SQ DAILY 04/03/21 04/03/21 History Irbesartan [Avapro] 75 mg PO DAILY 04/03/21 04/03/21 History Isosorbide Mononitrate ER [Imdur] 30 mg PO DAILY 04/03/21 04/03/21 History Pantoprazole Sodium [Protonix] 40 mg PO DAILY 04/03/21 04/03/21 History amLODIPine [Norvasc] 10 mg PO DAILY 04/03/21 04/03/21 History hydrALAZINE HCL [Apresoline] 25 mg PO TID 04/03/21 04/03/21 History hydrALAZINE HCL [Apresoline] 100 mg PO TID 04/03/21 04/03/21 History Allergies Allergy/AdvReac Type Severity Reaction Status Date / Time iodine Allergy Anaphylaxis Verified 04/03/21 08:33 Physical Exam Vitals: Vital Signs Temp Pulse Resp BP Pulse Ox 04/03/21 14:00 73 18 160/87 100 04/03/21 12:10 74 18 132/60 100 04/03/21 10:05 85 159/87 04/03/21 08:38 98.9 F 04/03/21 08:25 91 15 182/94 95 04/03/21 07:43 100.7 F H 04/03/21 07:08 97 22 183/94 97 04/03/21 06:40 102 H 20 173/91 04/03/21 05:52 97 04/03/21 05:31 101 H 28 H 222/134 93 L 04/03/21 05:00 32 H 04/03/21 04:30 98.3 F 97 36 H 237/121 86 L 04/03/21 04:20 93 22 236/117 92 L Intake and Output 04/02/21 04/03/21 04/03/21 22:59 06:59 14:59 Intake Total 7.5 Balance 7.5 Intake: Intake, IV Titration 7.5 Amount Nitroglycerin-D5w Pmx 50 7.5 mg In Dextrose/Water 1 250ml.bag @ 20 MCG/MIN 6 mls/hr IV .Q24H ONE Rx#: [id number] Other: Weight 49.895 kg Results CBC & Chem 7: 04/03/21 04:47 04/03/21 04:47 Labs: Abnormal Lab Results - Last 24 Hours (Table) 04/03/21 04/03/21 04/03/21 Range/Units 04:47 04:47 06:39 WBC 16.0 H (3.8-10.6) k/uL RBC 3.36 L (3.80-5.40) m/uL Hgb 10.3 L (11.4-16.0) gm/dL Hct 30.6 L (34.0-46.0) % Neutrophils # 14.6 H (1.3-7.7) k/uL Lymphocytes # 0.5 L (1.0-4.8) k/uL Sodium 133 L (137-145) mmol/L Chloride 93 L (98-107) mmol/L BUN 61 H (7-17) mg/dL Creatinine 9.30 H* (0.52-1.04) mg/dL Glucose 595 H* (74-99) mg/dL POC Glucose (mg/dL) 587 H (75-99) mg/dL Alkaline Phosphatase 135 H (38-126) U/L Lactate Dehydrogenase 813 H (313-618) U/L C-Reactive Protein 1.5 H (<1.0) mg/dL Procalcitonin (0.02-0.09) ng/mL 04/03/21 04/03/21 04/03/21 Range/Units 07:39 09:05 09:18 WBC (3.8-10.6) k/uL RBC (3.80-5.40) m/uL Hgb (11.4-16.0) gm/dL Hct (34.0-46.0) % Neutrophils # (1.3-7.7) k/uL Lymphocytes # (1.0-4.8) k/uL Sodium (137-145) mmol/L Chloride (98-107) mmol/L BUN (7-17) mg/dL Creatinine (0.52-1.04) mg/dL Glucose (74-99) mg/dL POC Glucose (mg/dL) 532 H 364 H (75-99) mg/dL Alkaline Phosphatase (38-126) U/L Lactate Dehydrogenase (313-618) U/L C-Reactive Protein (<1.0) mg/dL Procalcitonin 8.01 H (0.02-0.09) ng/mL 04/03/21 04/03/21 04/03/21 Range/Units 11:42 13:28 13:50 WBC (3.8-10.6) k/uL RBC (3.80-5.40) m/uL Hgb (11.4-16.0) gm/dL Hct (34.0-46.0) % Neutrophils # (1.3-7.7) k/uL Lymphocytes # (1.0-4.8) k/uL Sodium (137-145) mmol/L Chloride (98-107) mmol/L BUN (7-17) mg/dL Creatinine (0.52-1.04) mg/dL Glucose (74-99) mg/dL POC Glucose (mg/dL) 61 L 44 L 132 H (75-99) mg/dL Alkaline Phosphatase (38-126) U/L Lactate Dehydrogenase (313-618) U/L C-Reactive Protein (<1.0) mg/dL Procalcitonin (0.02-0.09) ng/mL
[2021-04-04] MEDS ORDERED: guaiFENesin-DM 100-10MG/5ML 10 ML CUP PO PRN (10:26)
--- NOTE | 2021-04-04 10:31 | P.PN ---
Subjective This is a pleasant 30 years old female with past medical history of end-stage renal disease on hemodialysis, hypertension, CVA/TIA. Presents because of exertional dyspnea of 1-2 days' duration after she missed her hemodialysis. Patient presents with cough and secretions but no phlegm. Also she has some diarrhea which is is down on the presentation. No abdominal pain but she vomited about 6-7 time. No chest pain. She has dyspnea of one-day duration as well. She does not make significant amount of urine. She missed her hemodialysis yesterday because she was supposed to take he sick son from Hospital back to home after his been treated for pneumonia I offered to do test and she declines. Risks and benefits are explained On the presentation she was hypertensive 237/121, currently blood pressure is 182/94 Labs showed leukocytosis of 16 K, unknown baseline. INR 0.9. Rest of CBC is unremarkable except for hemoglobin of 10.3. BMP shows sodium 133, creatinine 9.3, glucose 595 Liver enzymes [place] [address] Coronavirus not detected. EKG showed normal sinus rhythm at [address]-T changes and QTC at 467. Chest x-ray: Pulmonary edema. 04/04/2021 Patient state in bed most of the time however she states her breathing is better compared to yesterday but she is coughing a lot and asking for cough medicine, Robitussin is provided and Tylenol for chest pain with coughing. Her vitals looks stable, no more fevers since admission however her blood pressure is significantly elevated 207/102. She is on oral Lasix 40 mg twice a day and low Zartan has been added 100 mg daily. Her sugar was elevated more than 300 this morning however she was hypoglycemic yesterday. We will return Levemir 22 units at bedside down to 10 units daily and we will keep monitoring her glucose with ISS continued. Also we will start the patient on NovoLog 5 units with meals as her hemoglobin A1c is 9.4% Monitor WBC tomorrow. Urine legionella Antigen is pending. She remains on Zosyn and doxycycline. Objective - Vital Signs Vital signs: Vital Signs Temp 99.1 F 04/04/21 06:15 Pulse 84 04/04/21 06:15 Resp 18 04/04/21 06:15 BP 207/102 04/04/21 07:59 Pulse Ox 98 04/04/21 06:15 Intake & Output 04/03/21 04/04/21 04/04/21 19:59 06:59 18:59 Output Total Balance Weight Output: Hemodialysis Other: Voiding Method # Voids - Exam GENERAL: The patient is alert and oriented x3, not in any acute distress. Well developed, well nourished. HEENT: Pupils are round and equally reacting to light. EOMI. No scleral icterus. No conjunctival pallor. Normocephalic, atraumatic. No pharyngeal erythema. No thyromegaly. CARDIOVASCULAR: S1 and S2 present. No murmurs, rubs, or gallops. -PULMONARY: Chest is clear to auscultation, no wheezing. Mild tachypneic with bilateral crepitation ABDOMEN: Soft, nontender, nondistended, normoactive bowel sounds. No palpable organomegaly. MUSCULOSKELETAL: No joint swelling or deformity. EXTREMITIES: No cyanosis, clubbing, or pedal edema. NEUROLOGICAL: Gross neurological examination did not reveal any focal deficits. SKIN: No rashes. no petechiae. - Labs CBC & Chem 7: 04/03/21 04:47 04/03/21 04:47 Labs: Abnormal Lab Results - Last 24 Hours (Table) 04/03/21 04/03/21 04/03/21 Range/Units 09:18 09:18 11:42 POC Glucose (mg/dL) 61 L (75-99) mg/dL Hemoglobin A1c 9.4 H (4.0-6.0) % Procalcitonin 8.01 H (0.02-0.09) ng/mL 04/03/21 04/03/21 04/03/21 Range/Units 13:28 13:50 14:51 POC Glucose (mg/dL) 44 L 132 H 53 L (75-99) mg/dL Hemoglobin A1c (4.0-6.0) % Procalcitonin (0.02-0.09) ng/mL 04/03/21 04/03/21 04/03/21 Range/Units 15:25 16:13 17:30 POC Glucose (mg/dL) 114 H 115 H 137 H (75-99) mg/dL Hemoglobin A1c (4.0-6.0) % Procalcitonin (0.02-0.09) ng/mL 04/03/21 04/03/21 04/04/21 Range/Units 20:41 21:21 01:19 EST POC Glucose (mg/dL) 154 H 177 H 53 L (75-99) mg/dL Hemoglobin A1c (4.0-6.0) % Procalcitonin (0.02-0.09) ng/mL 04/04/21 04/04/21 Range/Units 01:32 EST 06:51 POC Glucose (mg/dL) 74 L 378 H (75-99) mg/dL Hemoglobin A1c (4.0-6.0) % Procalcitonin (0.02-0.09) ng/mL Assessment and Plan Assessment: Sepsis with fever and leukocytosis mostly secondary to Possible pneumonia Uncontrolled hypertension with urgency upon admission End-stage renal disease on hemodialysis, missed hemodialysis on the presentation Acute diastolic CHF with unknown ejection fraction 55-60% Diabetes mellitus with Hyperglycemia. Hemoglobin A1c elevated 9.4% on admission History of CVA/TIA Nonadherence to therapy Plan: This is a pleasant 30 years old female who presents with uncontrolled hypertension and missed hemodialysis. Nephrology consult and continue with hemodialysis per recommendation Restart her home medication of blood pressure. Monitor blood pressure closely. Agree with losartan 100 mg Continue with insulin sliding scale and check hemoglobin A1c. Add NovoLog 5 units with meals Continue with doxycycline and Zosyn Several consultants on the case including nephrology, cardiology and ID team's Labs and medication were reviewed.. Continue same treatment. Continue with symptomatic treatment. Resume home medication. Monitor lytes and vitals. DVT and GI prophylaxis. Further recommendations depends on the clinical course of the patient DVT prophylaxis: Subcutaneous heparin GI Prophylaxis: Pepcid Prognosis is guarded
[2021-04-04] MEDS: ISOSORBIDE MONONITRATE ER 30 MG TAB.ER.24H PO SCH (10:47)
[2021-04-04] MEDS: LOSARTAN 50 MG TAB PO SCH (10:47)
--- NOTE | 2021-04-04 11:19 | PN ---
PROGRESS NOTE The patient is seen for followup for end-stage renal disease. She was admitted to the hospital with fluid overload. Patient was dialyzed yesterday. She had about 4 L of ultrafiltration and tolerated that well. The patient has had low-grade temp with no significant nausea, vomiting, diarrhea or abdominal pain. She had a few respiratory symptoms, mostly cough. This seems to have improved with ultrafiltration. White count is elevated at 16. Chest x-ray showed increased pulmonary vascular markings. No significant infiltrates were noted suggestive of pneumonia. PHYSICAL EXAMINATION: On examination today, blood pressure remains elevated 207/102, heart rate 84 per minute. She is afebrile. Examination of the heart S1, S2. Examination of lungs decreased breath sounds at the bases. Abdomen is soft, nontender. Examination of lower extremities shows no edema. CHILD CUSTODY EVALUATOR exam grossly intact. LAB: Show sodium 133, potassium 4.9 from April 03, hemoglobin 10.3 yesterday. ASSESSMENT: 1. End-stage renal disease, on hemodialysis on a Monday, Monday, Monday schedule. 2. Volume overload currently improved. 3. CKD mineral bone disorder. 4. Diabetes with significant hyperglycemia on initial admission, currently improved. 5. Hypertension uncontrolled. We will resume her angiotensin receptor blockers that patient was taking at home. We do not have Avapro and I will switch her to Cozaar at 100 mg daily. PLAN: Hemodialysis in a.m. Goal UF about 4 L again. Continue empiric antibiotics. Add Cozaar. MMODL / IJN: [id number] /
[2021-04-04 11:38] LABS: Glucose,Whole Blood 102 mg/dL (75-99)
[2021-04-04] MEDS: DOXYCYCLINE 100 MG CAP PO SCH ×2 (12:00→20:52)
[2021-04-04 12:52] LABS: Appearance,Urine Cloudy (Clear); Bacteria,Urine Rare /hpf; Bilirubin,Urine Negative (Negative); Blood,Urine Negative (Negative); Color,Urine Yellow; Glucose,Urine (UA) 4+ (Negative); Ketones,Urine Negative (Negative); Leukocyte Esterase,Urine Negative (Negative); Mucus,Urine Rare /hpf; Nitrite,Urine Negative (Negative); PH, Urine 8.5 (5.0-8.0); Protein,Urine 3+ (Negative); RBC,Urine 2 /hpf (0-5); Specific Gravity,Urine 1.015 (1.001-1.035); Squamous Epithelial Cell,Urine 19 /hpf (0-4); Urobilinogen,Urine <2.0 mg/dL (<2.0); WBC,Urine 5 /hpf (0-5)
[2021-04-04 15:56] LABS: Glucose,Whole Blood 35 mg/dL (75-99)
[2021-04-04 16:08] LABS: Glucose,Whole Blood 43 mg/dL (75-99)
[2021-04-04 16:24] LABS: Glucose,Whole Blood 44 mg/dL (75-99)
[2021-04-04 17:13] LABS: Glucose,Whole Blood 85 mg/dL (75-99)
[2021-04-04 19:48] LABS: Glucose,Whole Blood 350 mg/dL (75-99)
--- NOTE | 2021-04-04 22:50 | PN ---
PROGRESS NOTE DATE OF SERVICE: 04/04/2021 REASON FOR FOLLOWUP: Pneumonia. INTERVAL HISTORY: The patient is afebrile. The patient is feeling slightly better. She is breathing more comfortably. No further nausea or vomiting. No abdominal pain. Did have some diarrhea. PHYSICAL EXAMINATION: Blood pressure 140/76, pulse of 75, temperature 98.7. She is 98% on 1 L nasal cannula. General description is a middle-aged female lying in bed in no distress. Respiratory system: Unlabored breathing, decreased intensity of breath sounds. No wheeze. Heart S1, S2. Regular rate and rhythm. Abdomen soft, no tenderness. LABS: Urine for Legionella antigen was negative. Blood cultures have been negative so far. DIAGNOSTIC IMPRESSION AND PLAN: Patient admitted to hospital with right lower lobe pneumonia, possible aspiration etiology. Overall improvement on Zosyn; to continue. Will transition to oral antibiotic on discharge. Try to obtain a sputum sample to narrow down antibiotics and continue with supportive care. MMODL / IJN: [id number] /
[2021-04-05 02:20] LABS: Glucose,Whole Blood 584 mg/dL (75-99)
[2021-04-05 02:20] LABS: Glucose,Whole Blood >600 mg/dL (75-99)
[2021-04-05] MEDS: INSULIN REGULAR 100 UNIT in SODIUM CHLORIDE 0.9% 100 ML IV SCH ×2 (03:12→06:14)
[2021-04-05] MEDS ORDERED: cloNIDine HCL 0.2 MG TAB PO STA (03:43)
[2021-04-05] MEDS: ACETAMINOPHEN TAB 325 MG TAB PO PRN (03:49)
[2021-04-05 03:50] LABS: Glucose,Whole Blood >600 mg/dL (75-99)
[2021-04-05 04:20] LABS: Glucose,Whole Blood >600 mg/dL (75-99)
[2021-04-05 04:47] LABS: Glucose,Whole Blood 536 mg/dL (75-99)
[2021-04-05 05:17] LABS: Glucose,Whole Blood 483 mg/dL (75-99)
[2021-04-05] MEDS ORDERED: cloNIDine HCL 0.1 MG TAB PO STA (05:30)
[2021-04-05] MEDS: ENALAPRILAT 1.25 MG/ML 1 ML VIAL IVP SCH ×4 (05:46→23:24)
[2021-04-05 05:48] LABS: Glucose,Whole Blood 383 mg/dL (75-99)
[2021-04-05] MEDS: INSULIN ASPART (NovoLOG) 100 UNIT/ML VIAL SQ SCH ×5 (05:54→20:28)
[2021-04-05 06:16] LABS: Glucose,Whole Blood 292 mg/dL (75-99)
[2021-04-05] MEDS: carvediloL 12.5 MG TAB PO SCH ×2 (06:43→17:28)
[2021-04-05] MEDS: PANTOPRAZOLE 40 MG TABLET PO SCH (06:43)
[2021-04-05 06:47] LABS: Glucose,Whole Blood 191 mg/dL (75-99)
[2021-04-05] MEDS: FUROSEMIDE 40 MG TAB PO SCH ×2 (08:19→17:29)
[2021-04-05] MEDS: ISOSORBIDE MONONITRATE ER 30 MG TAB.ER.24H PO SCH (08:19)
[2021-04-05] MEDS: ESCITALOPRAM 10 MG TAB PO SCH (08:19)
[2021-04-05] MEDS: ASPIRIN 81 MG PO SCH (08:20)
[2021-04-05] MEDS: LOSARTAN 50 MG TAB PO SCH (08:20)
[2021-04-05] MEDS: hydrALAZINE HCL 50 MG TAB PO SCH ×3 (08:20→21:13)
[2021-04-05] MEDS: amLODIPine 10 MG TAB PO SCH (08:20)
[2021-04-05] MEDS: HEPARIN SODIUM,PORCINE/PF 5,000 UNIT/0.5 ML SYRINGE SQ SCH ×2 (08:21→20:30)
[2021-04-05 08:28] LABS: Glucose,Whole Blood 38 mg/dL (75-99)
[2021-04-05 08:39] LABS: Glucose,Whole Blood 42 mg/dL (75-99)
[2021-04-05 08:44] LABS: Basophils % (A) 0 %; Eosinophils # (A) 0.2 k/uL (0-0.7); Eosinophils % (A) 2 %; HCT 24.4 % (34.0-46.0); Lymphocytes # (A) 0.8 k/uL (1.0-4.8); Lymphocytes % (A) 9 %; MCH 31.1 pg (25.0-35.0); MCHC 34.4 g/dL (31.0-37.0); MCV 90.6 fL (80.0-100.0); Mean Platelet Volume 9.1; Monocytes # (A) 0.6 k/uL (0-1.0); Monocytes % (A) 6 %; Neutrophils # (A) 7.3 k/uL (1.3-7.7); Neutrophils % (A) 81 %; Platelet Count 216 k/uL (150-450); RDW 15.6 % (11.5-15.5); WBC 9.1 k/uL (3.8-10.6)
[2021-04-05 08:45] LABS: HGB 8.4 gm/dL (11.4-16.0)
[2021-04-05 09:00] LABS: Glucose,Whole Blood 98 mg/dL (75-99)
[2021-04-05] MEDS: PIPERACILLIN-TAZOBACTAM 3.375 GM in SODIUM CHLORIDE 0.9% 100 ML IVPB SCH ×2 (09:14→20:30)
--- NOTE | 2021-04-05 10:27 | P.PN ---
Subjective Patient is seen in follow-up for end-stage renal disease. She is maintained on hemodialysis on Monday schedule. Tolerating dialysis well. No chest pain or shortness of breath now. Vital signs are stable. General: The patient appeared well nourished and normally developed. HEENT: Head exam is unremarkable. LUNGS: Breath sounds decreased. HEART: Rate and Rhythm are regular. ABDOMEN: Soft, no distention. EXTREMITITES: No edema. Objective - Vital Signs Vital signs: Vital Signs Temp 99.3 F 04/05/21 03:28 Pulse 83 04/05/21 07:47 Resp 16 04/05/21 07:47 BP 181/81 04/05/21 07:47 Pulse Ox 96 04/05/21 07:47 Intake & Output 04/04/21 04/05/21 04/05/21 18:59 06:59 18:59 Intake Total 339.5 0 Balance 339.5 0 Weight 55.2 kg Intake: Intake, IV Titration 99.5 Amount Insulin Regular 100 unit 99.5 In Sodium Chloride 0.9% 100 ml @ Titrate IV .Q0M [facility] Rx#:[id number] Oral 240 0 Other: Voiding Method Toilet Toilet # Voids 2 1 # Bowel Movements 1 1 - Labs CBC & Chem 7: 04/05/21 07:04 04/03/21 04:47 Labs: Abnormal Lab Results - Last 24 Hours (Table) 04/03/21 04/04/21 04/04/21 Range/Units 11:11 11:36 15:55 RBC (3.80-5.40) m/uL Hgb (11.4-16.0) gm/dL Hct (34.0-46.0) % RDW (11.5-15.5) % Lymphocytes # (1.0-4.8) k/uL POC Glucose (mg/dL) 102 H 35 L (75-99) mg/dL Urine Appearance Cloudy H (Clear) Urine pH 8.5 H (5.0-8.0) Urine Protein 3+ H (Negative) Urine Glucose (UA) 4+ H (Negative) Ur Squamous Epith Cells 19 H (0-4) /hpf Urine Bacteria Rare H (None) /hpf Urine Mucus Rare H (None) /hpf 04/04/21 04/04/21 04/04/21 Range/Units 16:07 16:23 19:47 RBC (3.80-5.40) m/uL Hgb (11.4-16.0) gm/dL Hct (34.0-46.0) % RDW (11.5-15.5) % Lymphocytes # (1.0-4.8) k/uL POC Glucose (mg/dL) 43 L 44 L 350 H (75-99) mg/dL Urine Appearance (Clear) Urine pH (5.0-8.0) Urine Protein (Negative) Urine Glucose (UA) (Negative) Ur Squamous Epith Cells (0-4) /hpf Urine Bacteria (None) /hpf Urine Mucus (None) /hpf 04/05/21 04/05/21 04/05/21 Range/Units 02:15 02:18 03:47 RBC (3.80-5.40) m/uL Hgb (11.4-16.0) gm/dL Hct (34.0-46.0) % RDW (11.5-15.5) % Lymphocytes # (1.0-4.8) k/uL POC Glucose (mg/dL) 584 H >600 H >600 H (75-99) mg/dL Urine Appearance (Clear) Urine pH (5.0-8.0) Urine Protein (Negative) Urine Glucose (UA) (Negative) Ur Squamous Epith Cells (0-4) /hpf Urine Bacteria (None) /hpf Urine Mucus (None) /hpf 04/05/21 04/05/21 04/05/21 Range/Units 04:16 04:45 05:16 RBC (3.80-5.40) m/uL Hgb (11.4-16.0) gm/dL Hct (34.0-46.0) % RDW (11.5-15.5) % Lymphocytes # (1.0-4.8) k/uL POC Glucose (mg/dL) >600 H 536 H 483 H (75-99) mg/dL Urine Appearance (Clear) Urine pH (5.0-8.0) Urine Protein (Negative) Urine Glucose (UA) (Negative) Ur Squamous Epith Cells (0-4) /hpf Urine Bacteria (None) /hpf Urine Mucus (None) /hpf 04/05/21 04/05/2121 Range/Units 05:46 06:15 06:46 RBC (3.80-5.40) m/uL Hgb (11.4-16.0) gm/dL Hct (34.0-46.0) % RDW (11.5-15.5) % Lymphocytes # (1.0-4.8) k/uL POC Glucose (mg/dL) 383 H 292 H 191 H (75-99) mg/dL Urine Appearance (Clear) Urine pH (5.0-8.0) Urine Protein (Negative) Urine Glucose (UA) (Negative) Ur Squamous Epith Cells (0-4) /hpf Urine Bacteria (None) /hpf Urine Mucus (None) /hpf 04/05/21 04/05/21 04/05/21 Range/Units 07:04 08:26 08:38 RBC 2.70 L (3.80-5.40) m/uL Hgb 8.4 L D (11.4-16.0) gm/dL Hct 24.4 L (34.0-46.0) % RDW 15.6 H (11.5-15.5) % Lymphocytes # 0.8 L (1.0-4.8) k/uL POC Glucose (mg/dL) 38 L 42 L (75-99) mg/dL Urine Appearance (Clear) Urine pH (5.0-8.0) Urine Protein (Negative) Urine Glucose (UA) (Negative) Ur Squamous Epith Cells (0-4) /hpf Urine Bacteria (None) /hpf Urine Mucus (None) /hpf Microbiology - Last 24 Hours (Table) 04/03/21 13:30 Blood Culture - Preliminary Blood No Growth after 24 hours 04/03/21 09:18 Blood Culture - Preliminary Blood No Growth after 24 hours Assessment and Plan Plan: Assessment: 1. End-stage renal disease maintained on hemodialysis on Monday schedule. 2. Volume overload. 3. Diabetes mellitus. 4. Hypertension with chronic kidney disease. 5. Anemia of chronic kidney disease maintained on Aranesp. 6. Pneumonia maintained on antibiotics. Plan: Currently seen while undergoing hemodialysis. Next treatment on Monday. Add clonidine. Check iron studies.
[2021-04-05] MEDS ORDERED: DARBEPOETIN ALFA 40 MCG/0.4 ML SYRINGE SQ SCH (11:00)
[2021-04-05] MEDS: LOPERAMIDE 2 MG CAP PO PRN (11:19)
[2021-04-05] MEDS: DOXYCYCLINE 100 MG CAP PO SCH ×2 (11:19→20:29)
[2021-04-05] MEDS: cloNIDine HCL 0.1 MG TAB PO SCH ×3 (11:19→21:13)
[2021-04-05 11:53] LABS: Glucose,Whole Blood 190 mg/dL (75-99)
[2021-04-05 13:38] VITALS: BMI 21.5
--- NOTE | 2021-04-05 14:36 | P.PN ---
Subjective Progress Note Date: 04/05/21 This is a pleasant 30 years old female with past medical history of end-stage renal disease on hemodialysis, hypertension, CVA/TIA. Presents because of exertional dyspnea of 1-2 days' duration after she missed her hemodialysis. Patient presents with cough and secretions but no phlegm. Also she has some diarrhea which is is down on the presentation. No abdominal pain but she vomited about 6-7 time. No chest pain. She has dyspnea of one-day duration as well. She does not make significant amount of urine. She missed her hemodialysis yesterday because she was supposed to take he sick son from Hospital back to home after his been treated for pneumonia I offered to do test and she declines. Risks and benefits are explained On the presentation she was hypertensive 237/121, currently blood pressure is 182/94 Labs showed leukocytosis of 16 K, unknown baseline. INR 0.9. Rest of CBC is unremarkable except for hemoglobin of 10.3. BMP shows sodium 133, creatinine 9.3, glucose 595 Liver [place] [address] Coronavirus not detected. EKG showed normal sinus rhythm at [address]-T changes and QTC at 467. Chest x-ray: Pulmonary edema. 04/04/2021 Patient state in bed most of the time however she states her breathing is better compared to yesterday but she is coughing a lot and asking for cough medicine, Robitussin is provided and Tylenol for chest pain with coughing. Her vitals looks stable, no more fevers since admission however her blood pressure is significantly elevated 207/102. She is on oral Lasix 40 mg twice a day and low Zartan has been added 100 mg daily. Her sugar was elevated more than 300 this morning however she was hypoglycemic yesterday. We will return Levemir 22 units at bedside down to 10 units daily and we will keep monitoring her glucose with ISS continued. Also we will start the patient on NovoLog 5 units with meals as her hemoglobin A1c is 9.4% Monitor WBC tomorrow. Urine legionella Antigen is pending. She remains on Zosyn and doxycycline. 04/05/2021 Patient is seen and evaluated and follow-up continues to be closely monitored. Multiple medical consultations including infectious disease, cardiology, nephrology following closely. Patient currently receiving hemodialysis as she does on Monday/Monday/Monday. Patient is maintained on IV antibiotics in the form of Zosyn and oral doxycycline. Patient was maintained on insulin drip and we'll transition to her home dose and continue with sliding scale and pre-meal insulin and Accu-Cheks before meals and at bedtime. She had multiple low blood sugar readings today. Patient also continues to be hypertensive and medications being adjusted. Patient also continues with intermittent low-grade temps of 99.2 and 99.3. Labs: White blood count is 9.1, hemoglobin is 8.4, platelets are 216 Review of systems: Constitutional: reports of fatigue, low-grade fever, no reports of chills Cardiovascular: No reports of chest pain or palpitations Respiratory: No reports of worsening shortness of breath or cough GI: No reports of nausea, vomiting, reports diarrhea although somewhat improved : No reports of dysuria or retention Neurovascular: reports of generalized weakness All medications have been reviewed Active Medications Acetaminophen (Acetaminophen Tab 325 Mg Tab) 650 mg PO Q6HR PRN PRN Reason: Fever and/ or Pain Last Admin: 04/05/21 03:49 Dose: 650 mg Documented by: Amlodipine Besylate (Amlodipine 10 Mg Tab) 10 mg PO DAILY [facility] Last Admin: 04/05/21 08:20 Dose: 10 mg Documented by: Aspirin (Aspirin 81 Mg) 81 mg PO DAILY [facility] Last Admin: 04/05/21 08:20 Dose: 81 mg Documented by: Carvedilol (Carvedilol 12.5 Mg Tab) 25 mg PO BID-W/MEALS [facility] Last Admin: 04/05/21 06:43 Dose: 25 mg Documented by: Clonidine (Clonidine Hcl 0.1 Mg Tab) 0.1 mg PO TID [facility] Last Admin: 04/05/21 11:19 Dose: 0.1 mg Documented by: Darbepoetin Tate (Darbepoetin Tate 40 Mcg/0.4 Ml Syringe) 40 mcg SQ Q7D [facility] Doxycycline Monohydrate (Doxycycline 100 Mg Cap) 100 mg PO BID [facility] Last Admin: 04/05/21 11:19 Dose: 100 mg Documented by: Enalaprilat (Enalaprilat 1.25 Mg/Ml 1 Ml Vial) 1.25 mg IVP Q6HR [facility] Last Admin: 04/05/21 05:46 Dose: 1.25 mg Documented by: Escitalopram Oxalate (Escitalopram 10 Mg Tab) 10 mg PO DAILY [facility] Last Admin: 04/05/21 08:19 Dose: 10 mg Documented by: Furosemide (Furosemide 40 Mg Tab) 40 mg PO BID@0900,1600 [facility] Last Admin: 04/05/21 08:19 Dose: 40 mg Documented by: Guaifenesin/Dextromethorphan (Guaifenesin-Dm 100-10mg/5ml 10 Ml Cup) 10 ml PO Q6HR PRN PRN Reason: Cough Last Admin: 04/05/21 03:23 Dose: 10 ml Documented by: Heparin Sodium (Porcine) (Heparin Sodium,Porcine/Pf 5,000 Unit/0.5 Ml Syringe) 5,000 unit SQ Q12HR [facility] Last Admin: 04/05/21 08:21 Dose: 5,000 unit Documented by: Hydralazine HCl (Hydralazine Hcl 50 Mg Tab) 150 mg PO TID [facility] Last Admin: 04/05/21 08:20 Dose: 150 mg Documented by: Sodium Chloride (Saline 0.9%) 1,000 mls @ 20 mls/hr IV .Q24H [facility] Last Admin: 04/04/21 23:18 Dose: 20 mls/hr Documented by: Piperacillin Sod/Tazobactam (Sod 3.375 gm/ Sodium Chloride) 100 mls @ 25 mls/hr IVPB Q12HR [facility] Last Admin: 04/05/21 09:14 Dose: 25 mls/hr Documented by: Insulin Aspart (Insulin Aspart (Novolog) 100 Unit/Ml Vial) 5 unit SQ AC-TID [facility] Last Admin: 04/05/21 05:54 Dose: Not Given Documented by: Insulin Aspart (Insulin Aspart (Novolog) 100 Unit/Ml Vial) 0 unit SQ ACHS [facility]; Protocol Insulin Detemir (Insulin Detemir (Levemir) 100 Unit/Ml Syr) 22 unit SQ DAILY [facility] Isosorbide Mononitrate (Isosorbide Mononitrate Er 30 Mg Tab.Er.24h) 30 mg PO DAILY [facility] Last Admin: 04/05/21 08:19 Dose: 30 mg Documented by: Loperamide HCl (Loperamide 2 Mg Cap) 2 mg PO QID PRN PRN Reason: Diarrhea Last Admin: 04/05/21 11:19 Dose: 2 mg Documented by: Losartan Potassium (Losartan 50 Mg Tab) 100 mg PO DAILY [facility] Last Admin: 04/05/21 08:20 Dose: 100 mg Documented by: Ondansetron HCl (Ondansetron 4 Mg/2 Ml Vial) 4 mg IVP Q6HR PRN PRN Reason: Nausea And Vomiting Last Admin: 04/03/21 13:36 Dose: 4 mg Documented by: Pantoprazole Sodium (Pantoprazole 40 Mg Tablet) 40 mg PO AC-BRKFST [facility] Last Admin: 04/05/21 06:43 Dose: 40 mg Documented by: Physical exam: GENERAL: The patient is alert and oriented x3, not in any acute distress. Well developed, well nourished. HEENT: Pupils are round and equally reacting to light. EOMI. No scleral icterus. No conjunctival pallor. Normocephalic, atraumatic. No pharyngeal erythema. No thyromegaly. CARDIOVASCULAR: S1 and S2 present. No murmurs, rubs, or gallops. PULMONARY: Diminished breath sounds bilaterally with some scattered rhonchi noted ABDOMEN: Soft, nontender, nondistended, normoactive bowel sounds. No palpable organomegaly. MUSCULOSKELETAL: No joint swelling or deformity. EXTREMITIES: No cyanosis, clubbing, or pedal edema. NEUROLOGICAL: Gross neurological examination did not reveal any focal deficits. SKIN: No rashes. no petechiae. Assessment: Sepsis with fever and leukocytosis mostly secondary to Possible pneumonia Uncontrolled hypertension with urgency upon admission End-stage renal disease on hemodialysis, missed hemodialysis on the presentation Acute diastolic CHF with unknown ejection fraction 55-60% Diabetes mellitus with Hyperglycemia. Hemoglobin A1c elevated 9.4% on admission History of CVA/TIA Nonadherence to therapy DVT prophylaxis GI prophylaxis Plan: Recommend continue with current medications and current management. Infectious disease, nephrology, cardiology following adjustments are being made to medications including blood pressure medications. Patient is currently receiving hemodialysis today as she is on a Monday/Monday/Monday schedule. Patient had missed dialysis prior to admission. Patient having some low blood sugar readings today and will discontinue insulin drip and continue with home medications and sliding scale with Accu-Cheks before meals and at bedtime and close monitoring. Encouraged oral intake and increased activity as tolerated. Patient also continues on IV Zosyn along with oral doxycycline and appreciate input of infectious disease. White blood count within normal limits and no obvious infection noted. We'll continue to monitor closely and repeat labs. Further recommendations to follow based on the clinical course of the patient. Prognosis is guarded. Objective - Vital Signs Vital signs: Vital Signs Temp 99.3 F 04/05/21 03:28 Pulse 83 04/05/21 07:47 Resp 16 04/05/21 07:47 BP 181/81 04/05/21 07:47 Pulse Ox 96 04/05/21 07:47 Intake & Output 04/04/21 04/05/21 04/05/21 18:59 06:59 18:59 Intake Total 339.5 0 Balance 339.5 0 Weight 55.2 kg Intake: Intake, IV Titration 99.5 Amount Insulin Regular 100 unit 99.5 In Sodium Chloride 0.9% 100 ml @ Titrate IV .Q0M [facility] Rx#:[id number] Oral 240 0 Other: Voiding Method Toilet Toilet # Voids 2 1 # Bowel Movements 1 1 - Labs CBC & Chem 7: 04/05/21 07:04 04/03/21 04:47 Labs: Abnormal Lab Results - Last 24 Hours (Table) 04/03/21 04/04/21 04/04/21 Range/Units 11:11 11:36 15:55 RBC (3.80-5.40) m/uL Hgb (11.4-16.0) gm/dL Hct (34.0-46.0) % RDW (11.5-15.5) % Lymphocytes # (1.0-4.8) k/uL POC Glucose (mg/dL) 102 H 35 L (75-99) mg/dL Urine Appearance Cloudy H (Clear) Urine pH 8.5 H (5.0-8.0) Urine Protein 3+ H (Negative) Urine Glucose (UA) 4+ H (Negative) Ur Squamous Epith Cells 19 H (0-4) /hpf Urine Bacteria Rare H (None) /hpf Urine Mucus Rare H (None) /hpf 04/04/21 04/04/21 04/04/21 Range/Units 16:07 16:23 19:47 RBC (3.80-5.40) m/uL Hgb (11.4-16.0) gm/dL Hct (34.0-46.0) % RDW (11.5-15.5) % Lymphocytes # (1.0-4.8) k/uL POC Glucose (mg/dL) 43 L 44 L 350 H (75-99) mg/dL Urine Appearance (Clear) Urine pH (5.0-8.0) Urine Protein (Negative) Urine Glucose (UA) (Negative) Ur Squamous Epith Cells (0-4) /hpf Urine Bacteria (None) /hpf Urine Mucus (None) /hpf 04/05/21 04/05/21 04/05/21 Range/Units 02:15 02:18 03:47 RBC (3.80-5.40) m/uL Hgb (11.4-16.0) gm/dL Hct (34.0-46.0) % RDW (11.5-15.5) % Lymphocytes # (1.0-4.8) k/uL POC Glucose (mg/dL) 584 H >600 H >600 H (75-99) mg/dL Urine Appearance (Clear) Urine pH (5.0-8.0) Urine Protein (Negative) Urine Glucose (UA) (Negative) Ur Squamous Epith Cells (0-4) /hpf Urine Bacteria (None) /hpf Urine Mucus (None) /hpf 04/05/21 04/05/21 04/05/21 Range/Units 04:16 04:45 05:16 RBC (3.80-5.40) m/uL Hgb (11.4-16.0) gm/dL Hct (34.0-46.0) % RDW (11.5-15.5) % Lymphocytes # (1.0-4.8) k/uL POC Glucose (mg/dL) >600 H 536 H 483 H (75-99) mg/dL Urine Appearance (Clear) Urine pH (5.0-8.0) Urine Protein (Negative) Urine Glucose (UA) (Negative) Ur Squamous Epith Cells (0-4) /hpf Urine Bacteria (None) /hpf Urine Mucus (None) /hpf 04/05/21 04/05/21 04/05/21 Range/Units 05:46 06:15 06:46 RBC (3.80-5.40) m/uL Hgb (11.4-16.0) gm/dL Hct (34.0-46.0) % RDW (11.5-15.5) % Lymphocytes # (1.0-4.8) k/uL POC Glucose (mg/dL) 383 H 292 H 191 H (75-99) mg/dL Urine Appearance (Clear) Urine pH (5.0-8.0) Urine Protein (Negative) Urine Glucose (UA) (Negative) Ur Squamous Epith Cells (0-4) /hpf Urine Bacteria (None) /hpf Urine Mucus (None) /hpf 04/05/21 04/05/21 04/05/21 Range/Units 07:04 08:26 08:38 RBC 2.70 L (3.80-5.40) m/uL Hgb 8.4 L D (11.4-16.0) gm/dL Hct 24.4 L (34.0-46.0) % RDW 15.6 H (11.5-15.5) % Lymphocytes # 0.8 L (1.0-4.8) k/uL POC Glucose (mg/dL) 38 L 42 L (75-99) mg/dL Urine Appearance (Clear) Urine pH (5.0-8.0) Urine Protein (Negative) Urine Glucose (UA) (Negative) Ur Squamous Epith Cells (0-4) /hpf Urine Bacteria (None) /hpf Urine Mucus (None) /hpf Microbiology - Last 24 Hours (Table) 04/03/21 13:30 Blood Culture - Preliminary Blood No Growth after 24 hours 04/03/21 09:18 Blood Culture - Preliminary Blood No Growth after 24 hours
[2021-04-05 16:19] LABS: Glucose,Whole Blood 258 mg/dL (75-99)
[2021-04-05 20:02] LABS: Glucose,Whole Blood 573 mg/dL (75-99)
[2021-04-05] MEDS ORDERED: INSULIN ASPART (NovoLOG) 100 UNIT/ML VIAL SQ ONE (20:10)
[2021-04-05] MEDS: INSULIN DETEMIR (LEVEMIR) 100 UNIT/ML SYR SQ SCH ×2 (20:13→20:28)
[2021-04-05] MEDS ORDERED: INSULIN DETEMIR (LEVEMIR) 100 UNIT/ML SYR SQ ONE (20:30)
[2021-04-05 20:42] LABS: % Iron Saturation 28.03 (12.00-45.00)
--- NOTE | 2021-04-05 22:37 | PN ---
PROGRESS NOTE DATE OF SERVICE: 04/05/2021 REASON FOR FOLLOWUP: Pneumonia. INTERVAL HISTORY: The patient is afebrile. The patient is breathing comfortably. Denies any chest pain or shortness of breath. Did have a cough, not bringing up any sputum. No further nausea or vomiting. However still complaining of diarrhea. PHYSICAL EXAMINATION: Blood pressure 171/79 with a pulse of 84, temperature 98.9. She is 97% on 3 L nasal cannula. General description is a middle-aged female lying in bed in no distress. Respiratory system: Unlabored breathing, decreased intensity of breath sounds. No wheeze. Heart S1, S2. Regular rate and rhythm. Abdomen soft, no tenderness. LABS: No new labs have been obtained today. Culture has been negative so far. DIAGNOSTIC IMPRESSION/PLAN: Patient admitted to the hospital with acute nausea, vomiting, diarrhea in this patient with evidence of pneumonia, possible aspiration. Currently covered with Zosyn. Transition to oral Augmentin on discharge to finish her therapy. Continue supportive care. MMODL / IJN: [id number] /
[2021-04-06 04:14] LABS: Glucose,Whole Blood 66 mg/dL (75-99)
[2021-04-06 04:35] LABS: Glucose,Whole Blood 96 mg/dL (75-99)
[2021-04-06] MEDS: LOPERAMIDE 2 MG CAP PO PRN ×3 (04:59→23:51)
[2021-04-06] MEDS: PANTOPRAZOLE 40 MG TABLET PO SCH (06:28)
[2021-04-06] MEDS: ENALAPRILAT 1.25 MG/ML 1 ML VIAL IVP SCH ×4 (06:28→23:51)
[2021-04-06] MEDS: SODIUM CHLORIDE 0.9% 1,000 ML IV SCH (06:28)
[2021-04-06] MEDS: carvediloL 12.5 MG TAB PO SCH ×2 (06:28→15:56)
[2021-04-06 07:25] LABS: Glucose,Whole Blood 225 mg/dL (75-99)
[2021-04-06] MEDS: cloNIDine HCL 0.1 MG TAB PO SCH (08:22)
[2021-04-06] MEDS: ESCITALOPRAM 10 MG TAB PO SCH (08:22)
[2021-04-06] MEDS: ISOSORBIDE MONONITRATE ER 30 MG TAB.ER.24H PO SCH (08:23)
[2021-04-06] MEDS: INSULIN ASPART (NovoLOG) 100 UNIT/ML VIAL SQ SCH ×7 (08:23→20:15)
[2021-04-06] MEDS: ASPIRIN 81 MG PO SCH (08:23)
[2021-04-06] MEDS: FUROSEMIDE 40 MG TAB PO SCH ×2 (08:23→15:56)
[2021-04-06] MEDS: LOSARTAN 50 MG TAB PO SCH (08:23)
[2021-04-06] MEDS: hydrALAZINE HCL 50 MG TAB PO SCH ×3 (08:23→21:29)
[2021-04-06] MEDS: amLODIPine 10 MG TAB PO SCH (08:23)
[2021-04-06] MEDS: DOXYCYCLINE 100 MG CAP PO SCH ×2 (08:23→21:24)
[2021-04-06] MEDS: PIPERACILLIN-TAZOBACTAM 3.375 GM in SODIUM CHLORIDE 0.9% 100 ML IVPB SCH ×2 (08:24→21:30)
[2021-04-06] MEDS: HEPARIN SODIUM,PORCINE/PF 5,000 UNIT/0.5 ML SYRINGE SQ SCH ×2 (08:24→21:25)
[2021-04-06] MEDS ORDERED: cloNIDine HCL 0.1 MG TAB PO STA (08:30)
--- NOTE | 2021-04-06 09:20 | P.PN ---
Subjective Patient is seen in follow-up for end-stage renal disease. She is maintained on hemodialysis on Monday schedule. No problems with dialysis yesterday. No chest pain or shortness of breath. No active complaints. Vital signs are stable. General: The patient appeared well nourished and normally developed. HEENT: Head exam is unremarkable. LUNGS: Breath sounds decreased. HEART: Rate and Rhythm are regular. ABDOMEN: Soft, no distention. EXTREMITITES: No edema. Objective - Vital Signs Vital signs: Vital Signs Temp 98.6 F 04/06/21 08:20 Pulse 71 04/06/21 08:20 Resp 16 04/06/21 08:20 BP 174/76 04/06/21 08:20 Pulse Ox 97 04/06/21 08:20 Intake & Output 04/05/21 04/06/21 04/06/21 18:59 06:59 18:59 Intake Total 118 Balance 118 Weight 55.2 kg 53.6 kg Intake: Oral 118 Other: Voiding Method Toilet Toilet # Voids 2 1 # Bowel Movements 1 1 - Labs CBC & Chem 7: 04/05/21 07:04 04/03/21 04:47 Labs: Abnormal Lab Results - Last 24 Hours (Table) 04/05/21 04/05/21 04/05/21 Range/Units 07:04 11:51 16:18 POC Glucose (mg/dL) 190 H 258 H (75-99) mg/dL TIBC 185 L (228-460) ug/dL Transferrin 132.0 L (204.0-354.0) mg/dL Ferritin 1277.0 H (10.0-291.0) ng/mL 04/05/21 04/06/21 04/06/21 Range/Units 20:01 04:13 07:24 POC Glucose (mg/dL) 573 H 66 L 225 H (75-99) mg/dL TIBC (228-460) ug/dL Transferrin (204.0-354.0) mg/dL Ferritin (10.0-291.0) ng/mL Microbiology - Last 24 Hours (Table) 04/03/21 13:30 Blood Culture - Preliminary Blood No Growth after 48 hours 04/03/21 09:18 Blood Culture - Preliminary Blood No Growth after 48 hours Assessment and Plan Plan: Assessment: 1. End-stage renal disease maintained on hemodialysis on Monday schedule. 2. Volume overload. Improved with ultrafiltration. 3. Diabetes mellitus. 4. Hypertension with chronic kidney disease. Blood pressure still high. 5. Anemia of chronic kidney disease maintained on Aranesp. Iron replete. 6. Pneumonia maintained on antibiotics. Plan: Hemodialysis tomorrow. Increase dose of clonidine.
[2021-04-06 10:32] LABS: HCT 24.8 % (34.0-46.0); HGB 8.6 gm/dL (11.4-16.0); MCH 31.2 pg (25.0-35.0); MCHC 34.6 g/dL (31.0-37.0); MCV 90.2 fL (80.0-100.0); Mean Platelet Volume 9.1; Platelet Count 207 k/uL (150-450); RBC 2.75 m/uL (3.80-5.40); RDW 15.2 % (11.5-15.5)
[2021-04-06 10:47] LABS: Albumin 3.4 g/dL (3.5-5.0); Calcium 9.2 mg/dL (8.4-10.2); Potassium 4.1 mmol/L (3.5-5.1); Total Bilirubin 0.5 mg/dL (0.2-1.3); Total Protein 5.9 g/dL (6.3-8.2)
[2021-04-06] MEDS ORDERED: DEXTROSE 50% SYRINGE 50 ML IVP ONE (11:54)
[2021-04-06 11:57] LABS: Glucose,Whole Blood 29 mg/dL (75-99)
[2021-04-06 12:09] LABS: Glucose,Whole Blood 204 mg/dL (75-99)
[2021-04-06 15:54] LABS: Glucose,Whole Blood 440 mg/dL (75-99)
[2021-04-06] MEDS: cloNIDine HCL 0.2 MG TAB PO SCH ×2 (15:56→21:29)
[2021-04-06 17:02] LABS: Glucose,Whole Blood 351 mg/dL (75-99)
[2021-04-06 20:08] LABS: Glucose,Whole Blood 199 mg/dL (75-99)
[2021-04-06] MEDS: INSULIN DETEMIR (LEVEMIR) 100 UNIT/ML SYR SQ SCH (21:24)
--- NOTE | 2021-04-06 23:18 | PN ---
PROGRESS NOTE DATE OF SERVICE: 04/06/2021 REASON FOR FOLLOWUP: Pneumonia, likely aspiration etiology. INTERVAL HISTORY: The patient is afebrile. The patient is currently breathing comfortably on room air. Denies having any chest pain or shortness of breath. Occasional cough. No abdominal pain. Her diarrhea has improved. PHYSICAL EXAMINATION: Blood pressure 178/89 with a pulse of 71, temperature 98. She is 96% on room air. General description is a middle-aged female lying in bed in no distress. Respiratory system: Unlabored breathing, clear to auscultation anteriorly. Heart S1, S2. Regular rate and rhythm. Abdomen soft, no tenderness. Extremities no edema of the feet. LABS: No new labs have been obtained today. Blood culture has been negative. DIAGNOSTIC IMPRESSION AND PLAN: Patient with admission to hospital with pneumonia, possibly aspiration etiology, in this patient with overall improvement on the Zosyn. She will be transitioned to oral Augmentin on discharge to finish her course of therapy. Continue with supportive care. MMODL / IJN: [id number] /
[2021-04-07 02:01] LABS: Glucose,Whole Blood 113 mg/dL (75-99)
--- NOTE | 2021-04-07 05:18 | P.PN ---
Subjective Progress Note Date: 04/06/21 This is a pleasant 30 years old female with past medical history of end-stage renal disease on hemodialysis, hypertension, CVA/TIA. Presents because of exertional dyspnea of 1-2 days' duration after she missed her hemodialysis. Patient presents with cough and secretions but no phlegm. Also she has some diarrhea which is is down on the presentation. No abdominal pain but she vomited about 6-7 time. No chest pain. She has dyspnea of one-day duration as well. She does not make significant amount of urine. She missed her hemodialysis yesterday because she was supposed to take he sick son from Hospital back to home after his been treated for pneumonia I offered to do test and she declines. Risks and benefits are explained On the presentation she was hypertensive 237/121, currently blood pressure is 182/94 Labs showed leukocytosis of 16 K, unknown baseline. INR 0.9. Rest of CBC is unremarkable except for hemoglobin of 10.3. BMP shows sodium 133, creatinine 9.3, glucose 595 Liver enzymes [place] [address] Coronavirus not detected. EKG showed normal sinus rhythm at [address]-T changes and QTC at 467. Chest x-ray: Pulmonary edema. 04/04/2021 Patient state in bed most of the time however she states her breathing is better compared to yesterday but she is coughing a lot and asking for cough medicine, Robitussin is provided and Tylenol for chest pain with coughing. Her vitals looks stable, no more fevers since admission however her blood pressure is significantly elevated 207/102. She is on oral Lasix 40 mg twice a day and low Zartan has been added 100 mg daily. Her sugar was elevated more than 300 this morning however she was hypoglycemic yesterday. We will return Levemir 22 units at bedside down to 10 units daily and we will keep monitoring her glucose with ISS continued. Also we will start the patient on NovoLog 5 units with meals as her hemoglobin A1c is 9.4% Monitor WBC tomorrow. Urine legionella Antigen is pending. She remains on Zosyn and doxycycline. 04/05/2021 Patient is seen and evaluated and follow-up continues to be closely monitored. Multiple medical consultations including infectious disease, cardiology, nephrology following closely. Patient currently receiving hemodialysis as she does on Monday/Monday/Monday. Patient is maintained on IV antibiotics in the form of Zosyn and oral doxycycline. Patient was maintained on insulin drip and we'll transition to her home dose and continue with sliding scale and pre-meal insulin and Accu-Cheks before meals and at bedtime. She had multiple low blood sugar readings today. Patient also continues to be hypertensive and medications being adjusted. Patient also continues with intermittent low-grade temps of 99.2 and 99.3. 04/06/2021 Patient is seen in follow up this morning and continues to have high and low blood sugars and maintained on sliding scale, pre-meal, and long acting and will continue. Patient blood pressure is elevated and clonidine being adjusted. Nephrology and infectious disease following closely. Patient is maintained on hemodialysis and will continue current schedule. WBC trending down and patient is afebrile. Continued on oral doxycycline and IV zosyn with ID following. Encouraged increased activity. Labs: White blood count is 6.0 hemoglobin is 8.6, platelets are 207, Na is 135, potassium is 4.1, bun is 39, cr is 5.97 Review of systems: Constitutional: reports of fatigue, no fever, no reports of chills Cardiovascular: No reports of chest pain or palpitations Respiratory: No reports of worsening shortness of breath, reports continued cough GI: No reports of nausea, vomiting, reports diarrhea although somewhat improved : No reports of dysuria or retention Neurovascular: reports of generalized weakness All medications have been reviewed Active Medications Acetaminophen (Acetaminophen Tab 325 Mg Tab) 650 mg PO Q6HR PRN PRN Reason: Fever and/ or Pain Last Admin: 04/05/21 03:49 Dose: 650 mg Documented by: Amlodipine Besylate (Amlodipine 10 Mg Tab) 10 mg PO DAILY [facility] Last Admin: 04/06/21 08:23 Dose: 10 mg Documented by: Aspirin (Aspirin 81 Mg) 81 mg PO DAILY [facility] Last Admin: 04/06/21 08:23 Dose: 81 mg Documented by: Carvedilol (Carvedilol 12.5 Mg Tab) 25 mg PO BID-W/MEALS [facility] Last Admin: 04/06/21 15:56 Dose: 25 mg Documented by: Clonidine (Clonidine Hcl 0.2 Mg Tab) 0.2 mg PO TID [facility] Last Admin: 04/06/21 21:29 Dose: 0.2 mg Documented by: Darbepoetin Tate (Darbepoetin Tate 40 Mcg/0.4 Ml Syringe) 40 mcg SQ Q7D [facility] Last Admin: 04/05/21 20:27 Dose: 40 mcg Documented by: Doxycycline Monohydrate (Doxycycline 100 Mg Cap) 100 mg PO BID [facility] Last Admin: 04/06/21 21:24 Dose: 100 mg Documented by: Enalaprilat (Enalaprilat 1.25 Mg/Ml 1 Ml Vial) 1.25 mg IVP Q6HR [facility] Last Admin: 04/06/21 23:51 Dose: 1.25 mg Documented by: Escitalopram Oxalate (Escitalopram 10 Mg Tab) 10 mg PO DAILY [facility] Last Admin: 04/06/21 08:22 Dose: 10 mg Documented by: Furosemide (Furosemide 40 Mg Tab) 40 mg PO BID@0900,1600 [facility] Last Admin: 04/06/21 15:56 Dose: 40 mg Documented by: Guaifenesin/Dextromethorphan (Guaifenesin-Dm 100-10mg/5ml 10 Ml Cup) 10 ml PO Q6HR PRN PRN Reason: Cough Last Admin: 04/05/21 03:23 Dose: 10 ml Documented by: Heparin Sodium (Porcine) (Heparin Sodium,Porcine/Pf 5,000 Unit/0.5 Ml Syringe) 5,000 unit SQ Q12HR [facility] Last Admin: 04/06/21 21:25 Dose: Not Given Documented by: Hydralazine HCl (Hydralazine Hcl 50 Mg Tab) 150 mg PO TID [facility] Last Admin: 04/06/21 21:29 Dose: 150 mg Documented by: Sodium Chloride (Saline 0.9%) 1,000 mls @ 20 mls/hr IV .Q24H [facility] Last Admin: 04/06/21 06:28 Dose: 20 mls/hr Documented by: Piperacillin Sod/Tazobactam (Sod 3.375 gm/ Sodium Chloride) 100 mls @ 25 mls/hr IVPB Q12HR [facility] Last Admin: 04/06/21 21:30 Dose: 25 mls/hr Documented by: Insulin Aspart (Insulin Aspart (Novolog) 100 Unit/Ml Vial) 5 unit SQ AC-TID [facility] Last Admin: 04/06/21 15:57 Dose: 5 unit Documented by: Insulin Aspart (Insulin Aspart (Novolog) 100 Unit/Ml Vial) 0 unit SQ ACHS [facility]; Protocol Last Admin: 04/06/21 20:15 Dose: Not Given Documented by: Insulin Detemir (Insulin Detemir (Levemir) 100 Unit/Ml Syr) 22 unit SQ HS [facility] Last Admin: 04/06/21 21:24 Dose: 22 unit Documented by: Isosorbide Mononitrate (Isosorbide Mononitrate Er 30 Mg Tab.Er.24h) 30 mg PO DAILY [facility] Last Admin: 04/06/21 08:23 Dose: 30 mg Documented by: Loperamide HCl (Loperamide 2 Mg Cap) 2 mg PO QID PRN PRN Reason: Diarrhea Last Admin: 04/06/21 23:51 Dose: 2 mg Documented by: Losartan Potassium (Losartan 50 Mg Tab) 100 mg PO DAILY [facility] Last Admin: 04/06/21 08:23 Dose: 100 mg Documented by: Ondansetron HCl (Ondansetron 4 Mg/2 Ml Vial) 4 mg IVP Q6HR PRN PRN Reason: Nausea And Vomiting Last Admin: 04/03/21 13:36 Dose: 4 mg Documented by: Pantoprazole Sodium (Pantoprazole 40 Mg Tablet) 40 mg PO AC-BRKFST [facility] Last Admin: 04/06/21 06:28 Dose: 40 mg Documented by: Physical exam: GENERAL: The patient is alert and oriented x3, not in any acute distress. Well developed, well nourished. HEENT: Pupils are round and equally reacting to light. EOMI. No scleral icterus. No conjunctival pallor. Normocephalic, atraumatic. No pharyngeal erythema. No thyromegaly. CARDIOVASCULAR: S1 and S2 present. No murmurs, rubs, or gallops. PULMONARY: Diminished breath sounds bilaterally with some scattered rhonchi noted ABDOMEN: Soft, nontender, nondistended, normoactive bowel sounds. No palpable organomegaly. MUSCULOSKELETAL: No joint swelling or deformity. EXTREMITIES: No cyanosis, clubbing, or pedal edema. NEUROLOGICAL: Gross neurological examination did not reveal any focal deficits. SKIN: No rashes. no petechiae. Assessment: Sepsis with fever and leukocytosis mostly secondary to Possible pneumonia Uncontrolled hypertension with urgency upon admission End-stage renal disease on hemodialysis, missed hemodialysis on the presentation Acute diastolic CHF with ejection fraction 55-60% Diabetes mellitus with Hyperglycemia. Hemoglobin A1c elevated 9.4% on admission History of CVA/TIA Nonadherence to therapy DVT prophylaxis GI prophylaxis Plan: Recommend continue with current medications and current management. Infectious disease, nephrology, cardiology following adjustments are being made to medications including blood pressure medications. Patient is maintained on hemodialysis on a Monday/Monday/Monday schedule. Patient had missed dialysis prior to admission. Patient continues to have some low blood sugar readings today and will continue with home medications and sliding scale with Accu-Cheks before meals and at bedtime and close monitoring. Encouraged oral intake and increased activity as tolerated. Patient also continues on IV Zosyn along with oral doxycycline and appreciate input of infectious disease. White blood count within normal limits and no obvious infection noted. We'll continue to monitor closely and repeat labs. Further recommendations to follow based on the clinical course of the patient. Prognosis is guarded. Objective - Vital Signs Vital signs: Vital Signs Temp 98.4 F 04/06/21 04:00 Pulse 68 04/06/21 04:00 Resp 18 04/06/21 04:00 BP 175/94 04/06/21 06:26 Pulse Ox 98 04/06/21 04:00 Intake & Output 04/05/21 04/06/21 04/06/21 18:59 06:59 18:59 Intake Total 118 Balance 118 Weight 55.2 kg 53.6 kg Intake: Oral 118 Other: Voiding Method Toilet Toilet # Voids 2 1 # Bowel Movements 1 1 - Labs CBC & Chem 7: 04/06/21 10:15 04/06/21 10:15 Labs: Abnormal Lab Results - Last 24 Hours (Table) 04/05/21 04/05/21 04/05/21 Range/Units 07:04 07:04 08:38 RBC 2.70 L (3.80-5.40) m/uL Hgb 8.4 L D (11.4-16.0) gm/dL Hct 24.4 L (34.0-46.0) % RDW 15.6 H (11.5-15.5) % Lymphocytes # 0.8 L (1.0-4.8) k/uL POC Glucose (mg/dL) 42 L (75-99) mg/dL TIBC 185 L (228-460) ug/dL Transferrin 132.0 L (204.0-354.0) mg/dL Ferritin 1277.0 H (10.0-291.0) ng/mL 04/05/21 04/05/21 04/05/21 Range/Units 11:51 16:18 20:01 RBC (3.80-5.40) m/uL Hgb (11.4-16.0) gm/dL Hct (34.0-46.0) % RDW (11.5-15.5) % Lymphocytes # (1.0-4.8) k/uL POC Glucose (mg/dL) 190 H 258 H 573 H (75-99) mg/dL TIBC (228-460) ug/dL Transferrin (204.0-354.0) mg/dL Ferritin (10.0-291.0) ng/mL 04/06/21 04/06/21 Range/Units 04:13 07:24 RBC (3.80-5.40) m/uL Hgb (11.4-16.0) gm/dL Hct (34.0-46.0) % RDW (11.5-15.5) % Lymphocytes # (1.0-4.8) k/uL POC Glucose (mg/dL) 66 L 225 H (75-99) mg/dL TIBC (228-460) ug/dL Transferrin (204.0-354.0) mg/dL Ferritin (10.0-291.0) ng/mL Microbiology - Last 24 Hours (Table) 04/03/21 13:30 Blood Culture - Preliminary Blood No Growth after 48 hours 04/03/21 09:18 Blood Culture - Preliminary Blood No Growth after 48 hours
[2021-04-07 05:47] LABS: Glucose,Whole Blood 30 mg/dL (75-99)
[2021-04-07 05:48] LABS: Basophils # (A) 0.1 k/uL (0-0.2); Basophils % (A) 1 %; Eosinophils # (A) 0.3 k/uL (0-0.7); Eosinophils % (A) 5 %; HCT 27.8 % (34.0-46.0); HGB 9.4 gm/dL (11.4-16.0); Lymphocytes # (A) 1.6 k/uL (1.0-4.8); Lymphocytes % (A) 23 %; MCH 30.4 pg (25.0-35.0); MCHC 33.9 g/dL (31.0-37.0); MCV 89.9 fL (80.0-100.0); Mean Platelet Volume 10.1; Monocytes # (A) 0.4 k/uL (0-1.0); Monocytes % (A) 5 %; Neutrophils # (A) 4.4 k/uL (1.3-7.7); Neutrophils % (A) 64 %; Platelet Count 242 k/uL (150-450); RBC 3.09 m/uL (3.80-5.40); RDW 15.3 % (11.5-15.5); WBC 6.8 k/uL (3.8-10.6)
[2021-04-07] MEDS ORDERED: DEXTROSE 50% SYRINGE 50 ML IVP STA (05:56)
[2021-04-07 06:00] LABS: Glucose,Whole Blood 74 mg/dL (75-99)
[2021-04-07] MEDS: ENALAPRILAT 1.25 MG/ML 1 ML VIAL IVP SCH (06:08)
[2021-04-07] MEDS: PANTOPRAZOLE 40 MG TABLET PO SCH (06:08)
[2021-04-07] MEDS: carvediloL 12.5 MG TAB PO SCH ×2 (06:08→19:36)
[2021-04-07] MEDS: INSULIN ASPART (NovoLOG) 100 UNIT/ML VIAL SQ SCH ×7 (06:08→21:56)
[2021-04-07 07:09] LABS: Glucose,Whole Blood 169 mg/dL (75-99)
[2021-04-07] MEDS: PIPERACILLIN-TAZOBACTAM 3.375 GM in SODIUM CHLORIDE 0.9% 100 ML IVPB SCH ×2 (08:50→22:35)
[2021-04-07] MEDS: ISOSORBIDE MONONITRATE ER 30 MG TAB.ER.24H PO SCH (08:51)
[2021-04-07] MEDS: HEPARIN SODIUM,PORCINE/PF 5,000 UNIT/0.5 ML SYRINGE SQ SCH ×3 (08:51→22:36)
[2021-04-07] MEDS: ASPIRIN 81 MG PO SCH (08:51)
[2021-04-07] MEDS: FUROSEMIDE 40 MG TAB PO SCH ×2 (08:51→19:36)
[2021-04-07] MEDS: cloNIDine HCL 0.2 MG TAB PO SCH (08:51)
[2021-04-07] MEDS: LOSARTAN 50 MG TAB PO SCH (08:51)
[2021-04-07] MEDS: hydrALAZINE HCL 50 MG TAB PO SCH ×3 (08:51→22:35)
[2021-04-07] MEDS: amLODIPine 10 MG TAB PO SCH (08:51)
[2021-04-07] MEDS: DOXYCYCLINE 100 MG CAP PO SCH ×2 (08:51→22:32)
[2021-04-07] MEDS: ESCITALOPRAM 10 MG TAB PO SCH (08:51)
--- NOTE | 2021-04-07 09:31 | P.PN ---
Subjective Patient is seen in follow-up for end-stage renal disease. She is maintained on hemodialysis on Monday schedule. No chest pain or shortness of breath. No active complaints. Blood pressure remains on the higher side. Vital signs are stable. General: The patient appeared well nourished and normally developed. HEENT: Head exam is unremarkable. LUNGS: Breath sounds decreased. HEART: Rate and Rhythm are regular. ABDOMEN: Soft, no distention. EXTREMITITES: No edema. Objective - Vital Signs Vital signs: Vital Signs Temp 98.1 F 04/07/21 03:14 Pulse 70 04/07/21 03:14 Resp 16 04/07/21 03:14 BP 160/80 04/07/21 03:14 Pulse Ox 99 04/07/21 03:14 Intake & Output 04/06/21 04/07/21 04/07/21 18:59 06:59 18:59 Intake Total 240 Balance 240 Weight 52.4 kg Intake: Oral 240 Other: Voiding Method Toilet Toilet # Voids 1 # Bowel Movements 1 - Labs CBC & Chem 7: 04/07/21 05:35 04/07/21 05:35 Labs: Abnormal Lab Results - Last 24 Hours (Table) 04/06/21 04/06/21 04/06/21 Range/Units 10:15 10:15 11:54 RBC 2.75 L (3.80-5.40) m/uL Hgb 8.6 L (11.4-16.0) gm/dL Hct 24.8 L (34.0-46.0) % Sodium 135 L (137-145) mmol/L Carbon Dioxide (22-30) mmol/L BUN 39 H (7-17) mg/dL Creatinine 5.97 H (0.52-1.04) mg/dL Glucose 65 L (74-99) mg/dL POC Glucose (mg/dL) 29 L (75-99) mg/dL Total Protein 5.9 L (6.3-8.2) g/dL Albumin 3.4 L (3.5-5.0) g/dL 04/06/21 04/06/21 04/06/21 Range/Units 12:08 15:52 17:00 RBC (3.80-5.40) m/uL Hgb (11.4-16.0) gm/dL Hct (34.0-46.0) % Sodium (137-145) mmol/L Carbon Dioxide (22-30) mmol/L BUN (7-17) mg/dL Creatinine (0.52-1.04) mg/dL Glucose (74-99) mg/dL POC Glucose (mg/dL) 204 H 440 H 351 H (75-99) mg/dL Total Protein (6.3-8.2) g/dL Albumin (3.5-5.0) g/dL 04/06/21 04/07/21 04/07/21 Range/Units 20:06 02:00 05:35 RBC 3.09 L (3.80-5.40) m/uL Hgb 9.4 L (11.4-16.0) gm/dL Hct 27.8 L (34.0-46.0) % Sodium (137-145) mmol/L Carbon Dioxide (22-30) mmol/L BUN (7-17) mg/dL Creatinine (0.52-1.04) mg/dL Glucose (74-99) mg/dL POC Glucose (mg/dL) 199 H 113 H (75-99) mg/dL Total Protein (6.3-8.2) g/dL Albumin (3.5-5.0) g/dL 04/07/21 04/07/21 04/07/21 Range/Units 05:35 05:44 05:58 RBC (3.80-5.40) m/uL Hgb (11.4-16.0) gm/dL Hct (34.0-46.0) % Sodium 133 L (137-145) mmol/L Carbon Dioxide 21 L (22-30) mmol/L BUN 54 H (7-17) mg/dL Creatinine 8.18 H* (0.52-1.04) mg/dL Glucose 27 L* (74-99) mg/dL POC Glucose (mg/dL) 30 L 74 L (75-99) mg/dL Total Protein (6.3-8.2) g/dL Albumin (3.5-5.0) g/dL 04/07/21 Range/Units 07:07 RBC (3.80-5.40) m/uL Hgb (11.4-16.0) gm/dL Hct (34.0-46.0) % Sodium (137-145) mmol/L Carbon Dioxide (22-30) mmol/L BUN (7-17) mg/dL Creatinine (0.52-1.04) mg/dL Glucose (74-99) mg/dL POC Glucose (mg/dL) 169 H (75-99) mg/dL Total Protein (6.3-8.2) g/dL Albumin (3.5-5.0) g/dL Microbiology - Last 24 Hours (Table) 04/03/21 13:30 Blood Culture - Preliminary Blood No Growth after 72 hours 04/03/21 09:18 Blood Culture - Preliminary Blood No Growth after 72 hours Assessment and Plan Plan: Assessment: 1. End-stage renal disease maintained on hemodialysis on Monday schedule. 2. Volume overload. Improved with ultrafiltration. 3. Diabetes mellitus. Blood sugars labile. 4. Hypertension with chronic kidney disease. Blood pressure still high. 5. Anemia of chronic kidney disease maintained on Aranesp. Iron replete. 6. Pneumonia maintained on antibiotics. Plan: Hemodialysis today. Increase dose of clonidine to 0.3 mg 3 times daily. Will add Aldactone if blood pressure remains elevated. Will workup for secondary causes of hypertension outpatient.
[2021-04-07 11:58] LABS: Glucose,Whole Blood 197 mg/dL (75-99)
[2021-04-07 12:33] LABS: Glucose,Whole Blood 53 mg/dL (75-99)
--- NOTE | 2021-04-07 14:25 | PN ---
PROGRESS NOTE DATE OF SERVICE: 04/07/2021 REASON FOR FOLLOWUP: Pneumonia, possible aspiration etiology. INTERVAL HISTORY: The patient is afebrile. The patient is breathing comfortably on room air. The patient denies having any chest pain or cough. No abdominal pain. No further vomiting. Still complaining of diarrhea, though. PHYSICAL EXAMINATION: Her blood pressure is 167/79 with pulse of 73, temperature 98.2. She is 93% on room air. General description is a middle-aged female lying in bed in no distress. Respiratory system: Unlabored breathing, decreased intensity of breath sounds. No wheeze. Heart S1, S2. Regular rate and rhythm. Abdomen soft, no tenderness. LABS: White count normalized at 6.8, creatinine is 8.18. Blood culture has been negative. DIAGNOSTIC IMPRESSION AND PLAN: Patient admitted to hospital concerning for pneumonia, possible aspiration etiology. Patient did well on Zosyn. Has been complaining of some diarrhea. Will add Questran for symptomatic relief. Transition to oral antibiotic on discharge. Continue with supportive care. MMODL / IJN: [id number] /
[2021-04-07 17:23] LABS: Glucose,Whole Blood 168 mg/dL (75-99)
[2021-04-07] MEDS: CHOLESTYRAMINE (WITH SUGAR) 4 GM PACKET PO SCH (17:28)
[2021-04-07] MEDS: cloNIDine HCL 0.1 MG TAB PO SCH ×2 (19:36→22:33)
[2021-04-07 20:19] LABS: Glucose,Whole Blood 120 mg/dL (75-99)
[2021-04-07] MEDS: INSULIN DETEMIR (LEVEMIR) 100 UNIT/ML SYR SQ SCH (21:56)
[2021-04-07] MEDS: SODIUM CHLORIDE 0.9% 1,000 ML IV SCH (22:57)
[2021-04-08] MEDS ORDERED: NIFEdipine 10 MG CAP PO STA (00:19)
[2021-04-08 01:56] LABS: Glucose,Whole Blood 409 mg/dL (75-99)
[2021-04-08] MEDS: INSULIN DETEMIR (LEVEMIR) 100 UNIT/ML SYR SQ SCH ×2 (02:01→21:06)
--- NOTE | 2021-04-08 02:26 | P.PN ---
Subjective Progress Note Date: 04/07/21 This is a pleasant 30 years old female with past medical history of end-stage renal disease on hemodialysis, hypertension, CVA/TIA. Presents because of exertional dyspnea of 1-2 days' duration after she missed her hemodialysis. Patient presents with cough and secretions but no phlegm. Also she has some diarrhea which is is down on the presentation. No abdominal pain but she vomited about 6-7 time. No chest pain. She has dyspnea of one-day duration as well. She does not make significant amount of urine. She missed her hemodialysis yesterday because she was supposed to take he sick son from Hospital back to home after his been treated for pneumonia I offered to do test and she declines. Risks and benefits are explained On the presentation she was hypertensive 237/121, currently blood pressure is 182/94 Labs showed leukocytosis of 16 K, unknown baseline. INR 0.9. Rest of CBC is unremarkable except for hemoglobin of 10.3. BMP shows sodium 133, creatinine 9.3, glucose 595 Liver enzymes [place] [address] Coronavirus not detected. EKG showed normal sinus rhythm at [address]-T changes and QTC at 467. Chest x-ray: Pulmonary edema. 04/04/2021 Patient state in bed most of the time however she states her breathing is better compared to yesterday but she is coughing a lot and asking for cough medicine, Robitussin is provided and Tylenol for chest pain with coughing. Her vitals looks stable, no more fevers since admission however her blood pressure is significantly elevated 207/102. She is on oral Lasix 40 mg twice a day and low Zartan has been added 100 mg daily. Her sugar was elevated more than 300 this morning however she was hypoglycemic yesterday. We will return Levemir 22 units at bedside down to 10 units daily and we will keep monitoring her glucose with ISS continued. Also we will start the patient on NovoLog 5 units with meals as her hemoglobin A1c is 9.4% Monitor WBC tomorrow. Urine legionella Antigen is pending. She remains on Zosyn and doxycycline. 04/05/2021 Patient is seen and evaluated and follow-up continues to be closely monitored. Multiple medical consultations including infectious disease, cardiology, nephrology following closely. Patient currently receiving hemodialysis as she does on Monday/Monday/Monday. Patient is maintained on IV antibiotics in the form of Zosyn and oral doxycycline. Patient was maintained on insulin drip and we'll transition to her home dose and continue with sliding scale and pre-meal insulin and Accu-Cheks before meals and at bedtime. She had multiple low blood sugar readings today. Patient also continues to be hypertensive and medications being adjusted. Patient also continues with intermittent low-grade temps of 99.2 and 99.3. 04/06/2021 Patient is seen in follow up this morning and continues to have high and low blood sugars and maintained on sliding scale, pre-meal, and long acting and will continue. Patient blood pressure is elevated and clonidine being adjusted. Nephrology and infectious disease following closely. Patient is maintained on hemodialysis and will continue current schedule. WBC trending down and patient is afebrile. Continued on oral doxycycline and IV zosyn with ID following. Encouraged increased activity. 04/07/2021 Patient is seen this morning and continues to have elevated blood pressures and was maintained on IV vasotec along with multiple other hypertensive medications. Nephrology and ID following closely. Cardiology as needed. Patient to receive dialysis today. Patient to continue with IV zosyn and oral doxy and will transition to oral abx on discharge. Continue with accuchecks and close monitoring. Patients blood sugar was extremely low this morning and given an amp of dextrose. Labs: White blood count is 6.8 hemoglobin is 9.4, platelets are 242, Na is 133, potassium is 4.0, bun is 54, cr is 8.18 Review of systems: Constitutional: reports of fatigue, no fever, no reports of chills Cardiovascular: No reports of chest pain or palpitations Respiratory: No reports of worsening shortness of breath, reports continued cough GI: No reports of nausea, vomiting, reports diarrhea although somewhat improved : No reports of dysuria or retention Neurovascular: reports of generalized weakness All medications have been reviewed Active Medications Acetaminophen (Acetaminophen Tab 325 Mg Tab) 650 mg PO Q6HR PRN PRN Reason: Fever and/ or Pain Last Admin: 04/05/21 03:49 Dose: 650 mg Documented by: Aspirin (Aspirin 81 Mg) 81 mg PO DAILY [facility] Last Admin: 04/07/21 08:51 Dose: 81 mg Documented by: Carvedilol (Carvedilol 12.5 Mg Tab) 25 mg PO BID-W/MEALS [facility] Last Admin: 04/07/21 19:36 Dose: Not Given Documented by: Cholestyramine Resin (Cholestyramine (With Sugar) 4 Gm Packet) 4 gm PO BID@1000,1800 [facility] Last Admin: 04/07/21 17:28 Dose: 4 gm Documented by: Clonidine (Clonidine Hcl 0.1 Mg Tab) 0.3 mg PO TID [facility] Last Admin: 04/07/21 22:33 Dose: 0.3 mg Documented by: Darbepoetin Tate (Darbepoetin Tate 40 Mcg/0.4 Ml Syringe) 40 mcg SQ Q7D [facility] Last Admin: 04/05/21 20:27 Dose: 40 mcg Documented by: Doxycycline Monohydrate (Doxycycline 100 Mg Cap) 100 mg PO BID [facility] Last Admin: 04/07/21 22:32 Dose: 100 mg Documented by: Escitalopram Oxalate (Escitalopram 10 Mg Tab) 10 mg PO DAILY [facility] Last Admin: 04/07/21 08:51 Dose: 10 mg Documented by: Furosemide (Furosemide 40 Mg Tab) 40 mg PO BID@0900,1600 [facility] Last Admin: 04/07/21 19:36 Dose: Not Given Documented by: Guaifenesin/Dextromethorphan (Guaifenesin-Dm 100-10mg/5ml 10 Ml Cup) 10 ml PO Q6HR PRN PRN Reason: Cough Last Admin: 04/05/21 03:23 Dose: 10 ml Documented by: Heparin Sodium (Porcine) (Heparin Sodium,Porcine/Pf 5,000 Unit/0.5 Ml Syringe) 5,000 unit SQ Q12HR [facility] Last Admin: 04/07/21 22:36 Dose: Not Given Documented by: Hydralazine HCl (Hydralazine Hcl 50 Mg Tab) 150 mg PO TID [facility] Last Admin: 04/07/21 22:35 Dose: 150 mg Documented by: Sodium Chloride (Saline 0.9%) 1,000 mls @ 20 mls/hr IV .Q24H [facility] Last Admin: 04/07/21 22:57 Dose: 20 mls/hr Documented by: Piperacillin Sod/Tazobactam (Sod 3.375 gm/ Sodium Chloride) 100 mls @ 25 mls/hr IVPB Q12HR [facility] Last Admin: 04/07/21 22:35 Dose: 25 mls/hr Documented by: Insulin Aspart (Insulin Aspart (Novolog) 100 Unit/Ml Vial) 5 unit SQ AC-TID [facility] Last Admin: 04/07/21 17:28 Dose: 5 unit Documented by: Insulin Aspart (Insulin Aspart (Novolog) 100 Unit/Ml Vial) 0 unit SQ ACHS [facility]; Protocol Last Admin: 04/07/21 21:56 Dose: Not Given Documented by: Insulin Detemir (Insulin Detemir (Levemir) 100 Unit/Ml Syr) 22 unit SQ HS [facility] Last Admin: 04/08/21 02:01 Dose: 22 unit Documented by: Isosorbide Mononitrate (Isosorbide Mononitrate Er 30 Mg Tab.Er.24h) 30 mg PO DAILY [facility] Last Admin: 04/07/21 08:51 Dose: 30 mg Documented by: Loperamide HCl (Loperamide 2 Mg Cap) 2 mg PO QID PRN PRN Reason: Diarrhea Last Admin: 04/06/21 23:51 Dose: 2 mg Documented by: Losartan Potassium (Losartan 50 Mg Tab) 100 mg PO DAILY [facility] Last Admin: 04/07/21 08:51 Dose: 100 mg Documented by: Nifedipine (Nifedipine Xl 60 Mg Tab.Er.24) 60 mg PO DAILY [facility] Ondansetron HCl (Ondansetron 4 Mg/2 Ml Vial) 4 mg IVP Q6HR PRN PRN Reason: Nausea And Vomiting Last Admin: 04/03/21 13:36 Dose: 4 mg Documented by: Pantoprazole Sodium (Pantoprazole 40 Mg Tablet) 40 mg PO AC-BRKFST [facility] Last Admin: 04/07/21 06:08 Dose: 40 mg Documented by: Physical exam: GENERAL: The patient is alert and oriented x3, not in any acute distress. Well developed, well nourished. HEENT: Pupils are round and equally reacting to light. EOMI. No scleral icterus. No conjunctival pallor. Normocephalic, atraumatic. No pharyngeal erythema. No thyromegaly. CARDIOVASCULAR: S1 and S2 present. No murmurs, rubs, or gallops. PULMONARY: Diminished breath sounds bilaterally with some scattered rhonchi noted ABDOMEN: Soft, nontender, nondistended, normoactive bowel sounds. No palpable organomegaly. MUSCULOSKELETAL: No joint swelling or deformity. EXTREMITIES: No cyanosis, clubbing, or pedal edema. NEUROLOGICAL: Gross neurological examination did not reveal any focal deficits. SKIN: No rashes. no petechiae. Assessment: Sepsis with fever and leukocytosis mostly secondary to Possible pneumonia Uncontrolled hypertension with urgency upon admission End-stage renal disease on hemodialysis, missed hemodialysis on the presentation Acute diastolic CHF with ejection fraction 55-60% Diabetes mellitus with Hyperglycemia. Hemoglobin A1c elevated 9.4% on admission History of CVA/TIA Nonadherence to therapy DVT prophylaxis GI prophylaxis Plan: Recommend continue with current medications and current management. Infectious disease, nephrology, cardiology following adjustments are being made to medications including blood pressure medications. Patient is maintained on hemodialysis on a Monday/Monday/Monday schedule. Patient to receive dial ysis today. Patient continues to have some low blood sugar readings today and will continue with home medications and sliding scale with Accu-Cheks before meals and at bedtime and close monitoring. Encouraged oral intake and increased activity as tolerated. Patient also continues on IV Zosyn along with oral doxycycline and will discuss with ID about discharge abx recommendations. Hopeful for oral. White blood count within normal limits and no obvious infection noted. We'll continue to monitor closely and repeat labs. Further recommendations to follow based on the clinical course of the patient. Prognosis is guarded. Objective - Vital Signs Vital signs: Vital Signs Temp 98.1 F 04/07/21 03:14 Pulse 70 04/07/21 03:14 Resp 16 04/07/21 03:14 BP 160/80 04/07/21 03:14 Pulse Ox 99 04/07/21 03:14 Intake & Output 04/06/21 04/07/21 04/07/21 18:59 06:59 18:59 Intake Total 240 Balance 240 Weight 52.4 kg Intake: Oral 240 Other: Voiding Method Toilet Toilet # Voids 1 # Bowel Movements 1 - Labs CBC & Chem 7: 04/07/21 05:35 04/07/21 05:35 Labs: Abnormal Lab Results - Last 24 Hours (Table) 04/06/21 04/06/21 04/06/21 Range/Units 10:15 10:15 11:54 RBC 2.75 L (3.80-5.40) m/uL Hgb 8.6 L (11.4-16.0) gm/dL Hct 24.8 L (34.0-46.0) % Sodium 135 L (137-145) mmol/L Carbon Dioxide (22-30) mmol/L BUN 39 H (7-17) mg/dL Creatinine 5.97 H (0.52-1.04) mg/dL Glucose 65 L (74-99) mg/dL POC Glucose (mg/dL) 29 L (75-99) mg/dL Total Protein 5.9 L (6.3-8.2) g/dL Albumin 3.4 L (3.5-5.0) g/dL 04/06/21 04/06/21 04/06/21 Range/Units 12:08 15:52 17:00 RBC (3.80-5.40) m/uL Hgb (11.4-16.0) gm/dL Hct (34.0-46.0) % Sodium (137-145) mmol/L Carbon Dioxide (22-30) mmol/L BUN (7-17) mg/dL Creatinine (0.52-1.04) mg/dL Glucose (74-99) mg/dL POC Glucose (mg/dL) 204 H 440 H 351 H (75-99) mg/dL Total Protein (6.3-8.2) g/dL Albumin (3.5-5.0) g/dL 04/06/21 04/07/21 04/07/21 Range/Units 20:06 02:00 05:35 RBC 3.09 L (3.80-5.40) m/uL Hgb 9.4 L (11.4-16.0) gm/dL Hct 27.8 L (34.0-46.0) % Sodium (137-145) mmol/L Carbon Dioxide (22-30) mmol/L BUN (7-17) mg/dL Creatinine (0.52-1.04) mg/dL Glucose (74-99) mg/dL POC Glucose (mg/dL) 199 H 113 H (75-99) mg/dL Total Protein (6.3-8.2) g/dL Albumin (3.5-5.0) g/dL 04/07/21 04/07/21 04/07/21 Range/Units 05:35 05:44 05:58 RBC (3.80-5.40) m/uL Hgb (11.4-16.0) gm/dL Hct (34.0-46.0) % Sodium 133 L (137-145) mmol/L Carbon Dioxide 21 L (22-30) mmol/L BUN 54 H (7-17) mg/dL Creatinine 8.18 H* (0.52-1.04) mg/dL Glucose 27 L* (74-99) mg/dL POC Glucose (mg/dL) 30 L 74 L (75-99) mg/dL Total Protein (6.3-8.2) g/dL Albumin (3.5-5.0) g/dL 04/07/21 Range/Units 07:07 RBC (3.80-5.40) m/uL Hgb (11.4-16.0) gm/dL Hct (34.0-46.0) % Sodium (137-145) mmol/L Carbon Dioxide (22-30) mmol/L BUN (7-17) mg/dL Creatinine (0.52-1.04) mg/dL Glucose (74-99) mg/dL POC Glucose (mg/dL) 169 H (75-99) mg/dL Total Protein (6.3-8.2) g/dL Albumin (3.5-5.0) g/dL Microbiology - Last 24 Hours (Table) 04/03/21 13:30 Blood Culture - Preliminary Blood No Growth after 72 hours 04/03/21 09:18 Blood Culture - Preliminary Blood No Growth after 72 hours
[2021-04-08] MEDS: SODIUM CHLORIDE 0.9% 1,000 ML IV SCH (02:41)
[2021-04-08] MEDS: PANTOPRAZOLE 40 MG TABLET PO SCH (06:14)
[2021-04-08] MEDS: carvediloL 12.5 MG TAB PO SCH ×2 (06:14→15:25)
[2021-04-08] MEDS: INSULIN ASPART (NovoLOG) 100 UNIT/ML VIAL SQ SCH ×7 (07:10→21:05)
[2021-04-08 07:11] LABS: Glucose,Whole Blood 368 mg/dL (75-99)
[2021-04-08] MEDS ORDERED: NIFEdipine 10 MG CAP PO SCH (09:00)
--- NOTE | 2021-04-08 09:04 | P.PN ---
Subjective Patient is seen in follow-up for end-stage renal disease. She is maintained on hemodialysis on Monday schedule. No chest pain or shortness of breath. No active complaints. Blood pressure remains on the higher side. No problems with dialysis yesterday. Vital signs are stable. General: The patient appeared well nourished and normally developed. HEENT: Head exam is unremarkable. LUNGS: Breath sounds decreased. HEART: Rate and Rhythm are regular. ABDOMEN: Soft, no distention. EXTREMITITES: No edema. Objective - Vital Signs Vital signs: Vital Signs Temp 99 F 04/08/21 04:00 Pulse 80 04/08/21 04:00 Resp 16 04/08/21 04:00 BP 193/93 04/08/21 04:00 Pulse Ox 95 04/08/21 04:00 Intake & Output 04/07/21 04/08/21 04/08/21 18:59 06:59 18:59 Intake Total 338 120 Output Total 2700 Balance 338 -2580 Weight 50.2 kg Intake: Oral 338 120 Output: Urine 0 Hemodialysis 2700 Other: Voiding Method Toilet Toilet # Voids 3 # Bowel Movements 3 - Labs CBC & Chem 7: 04/07/21 05:35 04/07/21 05:35 Labs: Abnormal Lab Results - Last 24 Hours (Table) 04/04/21 04/07/21 04/07/21 Range/Units 02:05 11:54 17:10 POC Glucose (mg/dL) 53 L 197 H 168 H (75-99) mg/dL 04/07/21 04/08/21 04/08/21 Range/Units 20:17 01:55 07:06 POC Glucose (mg/dL) 120 H 409 H 368 H (75-99) mg/dL Microbiology - Last 24 Hours (Table) 04/03/21 13:30 Blood Culture - Preliminary Blood No Growth after 96 hours 04/03/21 09:18 Blood Culture - Preliminary Blood No Growth after 96 hours Assessment and Plan Plan: Assessment: 1. End-stage renal disease maintained on hemodialysis on Monday schedule. 2. Volume overload. Improved with ultrafiltration. 3. Diabetes mellitus. Blood sugars labile. 4. Hypertension with chronic kidney disease. Blood pressure remains high. 5. Anemia of chronic kidney disease maintained on Aranesp. Iron replete. 6. Pneumonia maintained on antibiotics. Plan: Hemodialysis tomorrow. Add spironolactone 25 mg once daily. Check renal Doppler ultrasound, plasma metanephrines. Check renin and aldosterone levels as well.
[2021-04-08] MEDS: DOXYCYCLINE 100 MG CAP PO SCH ×2 (09:15→21:05)
[2021-04-08] MEDS: ESCITALOPRAM 10 MG TAB PO SCH (09:15)
[2021-04-08] MEDS: ISOSORBIDE MONONITRATE ER 30 MG TAB.ER.24H PO SCH (09:15)
[2021-04-08] MEDS: SPIRONOLACTONE 25 MG TAB PO SCH (09:15)
[2021-04-08] MEDS: cloNIDine HCL 0.1 MG TAB PO SCH ×3 (09:15→20:53)
[2021-04-08] MEDS: HEPARIN SODIUM,PORCINE/PF 5,000 UNIT/0.5 ML SYRINGE SQ SCH ×2 (09:16→21:04)
[2021-04-08] MEDS: ASPIRIN 81 MG PO SCH (09:16)
[2021-04-08] MEDS: LOSARTAN 50 MG TAB PO SCH (09:16)
[2021-04-08] MEDS: FUROSEMIDE 40 MG TAB PO SCH ×2 (09:16→15:25)
[2021-04-08] MEDS: hydrALAZINE HCL 50 MG TAB PO SCH ×3 (09:16→20:53)
[2021-04-08] MEDS: PIPERACILLIN-TAZOBACTAM 3.375 GM in SODIUM CHLORIDE 0.9% 100 ML IVPB SCH ×2 (09:17→21:05)
[2021-04-08] MEDS: CHOLESTYRAMINE (WITH SUGAR) 4 GM PACKET PO SCH ×2 (09:17→15:25)
[2021-04-08 10:00] LABS: Glucose,Whole Blood 28 mg/dL (75-99)
[2021-04-08 10:52] LABS: Glucose,Whole Blood 48 mg/dL (75-99)
[2021-04-08 10:52] LABS: Glucose,Whole Blood 35 mg/dL (75-99)
[2021-04-08 11:02] LABS: Glucose,Whole Blood 91 mg/dL (75-99)
[2021-04-08 12:17] LABS: Glucose,Whole Blood 105 mg/dL (75-99)
--- NOTE | 2021-04-08 15:34 | P.PN ---
Subjective Progress Note Date: 04/08/21 This is a pleasant 30 years old female with past medical history of end-stage renal disease on hemodialysis, hypertension, CVA/TIA. Presents because of exertional dyspnea of 1-2 days' duration after she missed her hemodialysis. Patient presents with cough and secretions but no phlegm. Also she has some diarrhea which is is down on the presentation. No abdominal pain but she vomited about 6-7 time. No chest pain. She has dyspnea of one-day duration as well. She does not make significant amount of urine. She missed her hemodialysis yesterday because she was supposed to take he sick son from Hospital back to home after his been treated for pneumonia I offered to do test and she declines. Risks and benefits are explained On the presentation she was hypertensive 237/121, currently blood pressure is 182/94 Labs showed leukocytosis of 16 K, unknown baseline. INR 0.9. Rest of CBC is unremarkable except for hemoglobin of 10.3. BMP shows sodium 133, creatinine 9.3, glucose 595 Liver enzymes [place] [id number] Coronavirus not detected. EKG showed normal sinus rhythm at [address]-T changes and QTC at 467. Chest x-ray: Pulmonary edema. 04/04/2021 Patient state in bed most of the time however she states her breathing is better compared to yesterday but she is coughing a lot and asking for cough medicine, Robitussin is provided and Tylenol for chest pain with coughing. Her vitals looks stable, no more fevers since admission however her blood pressure is significantly elevated 207/102. She is on oral Lasix 40 mg twice a day and low Zartan has been added 100 mg daily. Her sugar was elevated more than 300 this morning however she was hypoglycemic yesterday. We will return Levemir 22 units at bedside down to 10 units daily and we will keep monitoring her glucose with ISS continued. Also we will start the patient on NovoLog 5 units with meals as her hemoglobin A1c is 9.4% Monitor WBC tomorrow. Urine legionella Antigen is pending. She remains on Zosyn and doxycycline. 04/05/2021 Patient is seen and evaluated and follow-up continues to be closely monitored. Multiple medical consultations including infectious disease, cardiology, nephrology following closely. Patient currently receiving hemodialysis as she does on Monday/Monday/Monday. Patient is maintained on IV antibiotics in the form of Zosyn and oral doxycycline. Patient was maintained on insulin drip and we'll transition to her home dose and continue with sliding scale and pre-meal insulin and Accu-Cheks before meals and at bedtime. She had multiple low blood sugar readings today. Patient also continues to be hypertensive and medications being adjusted. Patient also continues with intermittent low-grade temps of 99.2 and 99.3. 04/06/2021 Patient is seen in follow up this morning and continues to have high and low blood sugars and maintained on sliding scale, pre-meal, and long acting and will continue. Patient blood pressure is elevated and clonidine being adjusted. Nephrology and infectious disease following closely. Patient is maintained on hemodialysis and will continue current schedule. WBC trending down and patient is afebrile. Continued on oral doxycycline and IV zosyn with ID following. Encouraged increased activity. 04/07/2021 Patient is seen this morning and continues to have elevated blood pressures and was maintained on IV vasotec along with multiple other hypertensive medications. Nephrology and ID following closely. Cardiology as needed. Patient to receive dialysis today. Patient to continue with IV zosyn and oral doxy and will transition to oral abx on discharge. Continue with accuchecks and close monitoring. Patients blood sugar was extremely low this morning and given an amp of dextrose. 04/08/2021 Patient is seen in follow-up this morning clinically looking better although continues to have extremely low blood sugars and elevated blood pressure. Patient having an episode of hypotension today and was given multiple blood pressure medications including Procardia XL for continued elevated hypertension last night. Patient is scheduled on a Monday/Monday/Monday schedule of hemodialysis with nephrology following closely. Patient to undergo renal ultrasound is scheduled for tomorrow morning and will have hemodialysis done. Will continue with Accu-Cheks before meals and at bedtime and continue to [facility] closely. Patient is asymptomatic of hypoglycemia and hypotension. Patient states she uses long-acting 22 units at night and does extensive carb counting to manage and monitor her blood sugars. Patient will need to establish with historical archeologist here as she recently moved here along with life sciences manager once stabilized and discharged. Will repeat a.m. labs and continue to monitor closely. Review of systems: Constitutional: no reports of fatigue, no fever, no reports of chills Cardiovascular: No reports of chest pain or palpitations Respiratory: No reports of worsening shortness of breath, reports continued occasional cough that is improving GI: No reports of nausea, vomiting, denies diarrhea : No reports of dysuria or retention Neurovascular: No Reports of weakness All medications have been reviewed Active Medications Acetaminophen (Acetaminophen Tab 325 Mg Tab) 650 mg PO Q6HR PRN PRN Reason: Fever and/ or Pain Last Admin: 04/05/21 03:49 Dose: 650 mg Documented by: Aspirin (Aspirin 81 Mg) 81 mg PO DAILY [facility] Last Admin: 04/08/21 09:16 Dose: 81 mg Documented by: Carvedilol (Carvedilol 12.5 Mg Tab) 25 mg PO BID-W/MEALS [facility] Last Admin: 04/08/21 15:25 Dose: Not Given Documented by: Cholestyramine Resin (Cholestyramine (With Sugar) 4 Gm Packet) 4 gm PO BID@1000,1800 [facility] Last Admin: 04/08/21 15:25 Dose: Not Given Documented by: Clonidine (Clonidine Hcl 0.1 Mg Tab) 0.3 mg PO TID [facility] Last Admin: 04/08/21 15:25 Dose: Not Given Documented by: Darbepoetin Tate (Darbepoetin Tate 40 Mcg/0.4 Ml Syringe) 40 mcg SQ Q7D [facility] Last Admin: 04/05/21 20:27 Dose: 40 mcg Documented by: Doxycycline Monohydrate (Doxycycline 100 Mg Cap) 100 mg PO BID [facility] Last Admin: 04/08/21 09:15 Dose: 100 mg Documented by: Escitalopram Oxalate (Escitalopram 10 Mg Tab) 10 mg PO DAILY [facility] Last Admin: 04/08/21 09:15 Dose: 10 mg Documented by: Furosemide (Furosemide 40 Mg Tab) 40 mg PO BID@0900,1600 [facility] Last Admin: 04/08/21 15:25 Dose: Not Given Documented by: Guaifenesin/Dextromethorphan (Guaifenesin-Dm 100-10mg/5ml 10 Ml Cup) 10 ml PO Q6HR PRN PRN Reason: Cough Last Admin: 04/05/21 03:23 Dose: 10 ml Documented by: Heparin Sodium (Porcine) (Heparin Sodium,Porcine/Pf 5,000 Unit/0.5 Ml Syringe) 5,000 unit SQ Q12HR [facility] Last Admin: 04/08/21 09:16 Dose: Not Given Documented by: Hydralazine HCl (Hydralazine Hcl 50 Mg Tab) 150 mg PO TID [facility] Last Admin: 04/08/21 15:25 Dose: Not Given Documented by: Sodium Chloride (Saline 0.9%) 1,000 mls @ 20 mls/hr IV .Q24H [facility] Last Admin: 04/08/21 02:41 Dose: Not Given Documented by: Piperacillin Sod/Tazobactam (Sod 3.375 gm/ Sodium Chloride) 100 mls @ 25 mls/hr IVPB Q12HR [facility] Last Admin: 04/08/21 09:17 Dose: 25 mls/hr Documented by: Insulin Aspart (Insulin Aspart (Novolog) 100 Unit/Ml Vial) 5 unit SQ AC-TID [facility] Last Admin: 04/08/21 12:37 Dose: 3 unit Documented by: Insulin Aspart (Insulin Aspart (Novolog) 100 Unit/Ml Vial) 0 unit SQ ACHS [facility]; Protocol Last Admin: 04/08/21 12:39 Dose: Not Given Documented by: Insulin Detemir (Insulin Detemir (Levemir) 100 Unit/Ml Syr) 22 unit SQ HS [facility] Last Admin: 04/08/21 02:01 Dose: 22 unit Documented by: Isosorbide Mononitrate (Isosorbide Mononitrate Er 30 Mg Tab.Er.24h) 30 mg PO DAILY [facility] Last Admin: 04/08/21 09:15 Dose: 30 mg Documented by: Loperamide HCl (Loperamide 2 Mg Cap) 2 mg PO QID PRN PRN Reason: Diarrhea Last Admin: 04/06/21 23:51 Dose: 2 mg Documented by: Losartan Potassium (Losartan 50 Mg Tab) 100 mg PO DAILY [facility] Last Admin: 04/08/21 09:16 Dose: 100 mg Documented by: Ondansetron HCl (Ondansetron 4 Mg/2 Ml Vial) 4 mg IVP Q6HR PRN PRN Reason: Nausea And Vomiting Last Admin: 04/03/21 13:36 Dose: 4 mg Documented by: Pantoprazole Sodium (Pantoprazole 40 Mg Tablet) 40 mg PO AC-BRKFST [facility] Last Admin: 04/08/21 06:14 Dose: 40 mg Documented by: Spironolactone (Spironolactone 25 Mg Tab) 25 mg PO DAILY [facility] Last Admin: 04/08/21 09:15 Dose: 25 mg Documented by: Physical exam: GENERAL: The patient is alert and oriented x3, not in any acute distress. Well developed, well nourished. HEENT: Pupils are round and equally reacting to light. EOMI. No scleral icterus. No conjunctival pallor. Normocephalic, atraumatic. No pharyngeal erythema. No thyromegaly. CARDIOVASCULAR: S1 and S2 present. No murmurs, rubs, or gallops. PULMONARY: Diminished breath sounds bilaterally with no wheezing or rhonchi noted ABDOMEN: Soft, nontender, nondistended, normoactive bowel sounds. No palpable organomegaly. MUSCULOSKELETAL: No joint swelling or deformity. EXTREMITIES: No cyanosis, clubbing, or pedal edema. NEUROLOGICAL: Gross neurological examination did not reveal any focal deficits. SKIN: No rashes. no petechiae. Assessment: Sepsis with fever and leukocytosis mostly secondary to Possible pneumonia Acute hypoxic respiratory failure, present on admission, secondary to possible end-stage renal disease and missed dialysis and possibility of aspiration pneumonia Uncontrolled hypertension with urgency upon admission End-stage renal disease on hemodialysis, missed hemodialysis on the presentation Acute diastolic CHF with ejection fraction 55-60% Diabetes mellitus with Hyperglycemia. Hemoglobin A1c elevated 9.4% on admission History of CVA/TIA Nonadherence to therapy DVT prophylaxis GI prophylaxis Plan: Recommend continue with current medications and current management. Infectious disease, nephrology, cardiology following adjustments are being made to medications including blood pressure medications. Patient having episode of hypotension although asymptomatic blood pressure 80s systolic and was recently given Procardia XL and will discontinue and continue with current medications and monitor closely. Patient is maintained on hemodialysis on a Monday/Monday/Monday schedule. Patient scheduled for renal ultrasound in the morning. Patient continues to have some low blood sugar readings today and will continue with home medications and sliding scale with Accu-Cheks before meals and at bedtime and close monitoring. Encouraged oral intake and increased activity as tolerated. Patient also continues on IV Zosyn along with oral doxycycline and will transition to oral and biotics on discharge. We'll continue to monitor closely and repeat labs. Further recommendations to follow based on the clinical course of the patient. Prognosis is guarded. Objective - Vital Signs Vital signs: Vital Signs Temp 99 F 04/08/21 04:00 Pulse 80 04/08/21 04:00 Resp 16 04/08/21 04:00 BP 193/93 04/08/21 04:00 Pulse Ox 95 04/08/21 04:00 Intake & Output 04/07/21 04/08/21 04/08/21 18:59 06:59 18:59 Intake Total 338 120 Output Total 2700 Balance 338 -2580 Weight 50.2 kg Intake: Oral 338 120 Output: Urine 0 Hemodialysis 2700 Other: Voiding Method Toilet Toilet # Voids 3 # Bowel Movements 3 - Labs CBC & Chem 7: 04/07/21 05:35 04/07/21 05:35 Labs: Abnormal Lab Results - Last 24 Hours (Table) 04/04/21 04/07/21 04/07/21 Range/Units 02:05 11:54 17:10 POC Glucose (mg/dL) 53 L 197 H 168 H (75-99) mg/dL 04/07/21 04/08/21 04/08/21 Range/Units 20:17 01:55 07:06 POC Glucose (mg/dL) 120 H 409 H 368 H (75-99) mg/dL Microbiology - Last 24 Hours (Table) 04/03/21 13:30 Blood Culture - Preliminary Blood No Growth after 96 hours 04/03/21 09:18 Blood Culture - Preliminary Blood No Growth after 96 hours
[2021-04-08 17:03] LABS: Glucose,Whole Blood 255 mg/dL (75-99)
[2021-04-08 21:11] LABS: Glucose,Whole Blood 208 mg/dL (75-99)
--- NOTE | 2021-04-08 22:41 | PN ---
PROGRESS NOTE DATE OF SERVICE: 04/08/2021 REASON FOR FOLLOWUP: Pneumonia. INTERVAL HISTORY: The patient is afebrile. The patient is breathing comfortably. The patient denies having any chest pain or shortness of breath or cough. No abdominal pain. Still complains of some diarrhea. PHYSICAL EXAMINATION: Blood pressure 97/58 with a pulse of 52, temperature 98.1. She is 98% on room air. General description is a middle-aged female lying in bed in distress. Respiratory system: Unlabored breathing, decreased breath sounds in the bases. No wheeze. Heart S1, S2. Regular rate and rhythm. Abdomen soft, no tenderness. Labs are reviewed. DIAGNOSTIC IMPRESSION AND PLAN: Patient admitted to hospital with pneumonia concerning for an aspiration etiology with significant GI symptoms. Legionella was ruled out. Patient not having any diarrhea. We will discontinue the Zosyn and transition to oral Augmentin for a short course with close outpatient followup. MMODL / IJN: [id number] /
[2021-04-09 01:43] LABS: Glucose,Whole Blood 126 mg/dL (75-99)
[2021-04-09 05:45] LABS: Glucose,Whole Blood 39 mg/dL (75-99)
[2021-04-09] MEDS ORDERED: DEXTROSE 50% SYRINGE 50 ML IVP STA (05:45)
[2021-04-09] MEDS: PANTOPRAZOLE 40 MG TABLET PO SCH (05:52)
[2021-04-09] MEDS: INSULIN ASPART (NovoLOG) 100 UNIT/ML VIAL SQ SCH ×6 (05:52→17:49)
[2021-04-09] MEDS: carvediloL 12.5 MG TAB PO SCH ×2 (05:52→16:32)
[2021-04-09 06:27] LABS: Glucose,Whole Blood 133 mg/dL (75-99)
[2021-04-09 08:15] LABS: Glucose,Whole Blood 107 mg/dL (75-99)
--- NOTE | 2021-04-09 08:40 | US ---
EXAMINATION TYPE: US renal artery duplex complete DATE OF EXAM: 04/09/2021 COMPARISON: CT 10/11/2010 CLINICAL HISTORY: HTN, r/o renal artery stenosis. Diabetic patient in renal failure and on dialysis. MEASUREMENTS: RENAL SIZE: Rt Kidney: 8.8 x 3.0 x 3.7cm Lt Kidney: 9.3 x 4.5 x 4.2cm RESISTANCE INDEX Right: unable to visualize arcuate arteries Left: 0.89 RA/AO RATIO (< 3.5 ) Right: 1.6 Left: 1.6 RA VELOCITY ( < 180 cm/s) Right: 68cm/s Left: 89cm/s Right kidney measures small, left measures wnl, but similar to right. Technically difficult study due to overlying bowel and kidney size. Right arcuate arteries not visualized, unable to see left renal artery in its entirety. Limited scan shows no evidence of renal artery stenosis. IMPRESSION: No definite renal artery stenosis bilaterally. Diminutive kidneys bilaterally may be due to chronic r enal disease. Please correlate with patient's clinical scenario. Technically limited study.
[2021-04-09] MEDS ORDERED: AMOXIC-POT CLAV 500-125 MG 1 EACH TAB PO SCH (09:00)
--- NOTE | 2021-04-09 09:18 | P.PN ---
Subjective Patient is seen in follow-up for end-stage renal disease. She is maintained on hemodialysis on Monday schedule. No chest pain or shortness of breath. No active complaints. Blood pressure better controlled. Scheduled for dialysis today. Vital signs are stable. General: The patient appeared well nourished and normally developed. HEENT: Head exam is unremarkable. LUNGS: Breath sounds decreased. HEART: Rate and Rhythm are regular. ABDOMEN: Soft, no distention. EXTREMITITES: No edema. Objective - Vital Signs Vital signs: Vital Signs Temp 98.1 F 04/08/21 19:48 Pulse 76 04/09/21 04:00 Resp 18 04/09/21 04:00 BP 127/73 04/09/21 04:00 Pulse Ox 100 04/09/21 04:00 Intake & Output 04/08/21 04/09/21 04/09/21 18:59 06:59 18:59 Intake Total 360 970 Output Total 0 0 Balance 360 970 Weight 55.8 kg Intake: Oral 360 970 Output: Urine 0 0 Other: Voiding Method Toilet Toilet # Voids 0 0 - Labs CBC & Chem 7: 04/07/21 05:35 04/07/21 05:35 Labs: Abnormal Lab Results - Last 24 Hours (Table) 04/08/21 04/08/21 04/08/21 Range/Units 09:50 10:12 10:40 POC Glucose (mg/dL) 28 L 48 L 35 L (75-99) mg/dL 04/08/21 04/08/21 04/08/21 Range/Units 12:13 16:58 21:00 POC Glucose (mg/dL) 105 H 255 H 208 H (75-99) mg/dL 04/09/21 04/09/21 04/09/21 Range/Units 01:42 05:43 06:25 POC Glucose (mg/dL) 126 H 39 L 133 H (75-99) mg/dL 04/09/21 Range/Units 08:13 POC Glucose (mg/dL) 107 H (75-99) mg/dL Microbiology - Last 24 Hours (Table) 04/03/21 13:30 Blood Culture - Preliminary Blood No Growth after 120 hours 04/03/21 09:18 Blood Culture - Preliminary Blood No Growth after 120 hours Assessment and Plan Plan: Assessment: 1. End-stage renal disease maintained on hemodialysis on Monday schedule. 2. Volume overload. Improved with ultrafiltration. 3. Diabetes mellitus. Blood sugars labile. 4. Hypertension with chronic kidney disease. Better controlled. Some readings have been as low as in the systolic 80s to 90s. No evidence of renal artery stenosis noted on renal duplex ultrasound. 5. Anemia of chronic kidney disease maintained on Aranesp. Iron replete. 6. Pneumonia maintained on antibiotics. Plan: Hemodialysis today. Decrease hydralazine dose to 25 mg 3 times daily. To be held for systolic blood pressure less than 120. Decrease clonidine to 0.2 mg 3 times daily. To be held for systolic blood pressure less than 120. Follow-up plasma metanephrines, renin and aldosterone levels.
[2021-04-09] MEDS: CHOLESTYRAMINE (WITH SUGAR) 4 GM PACKET PO SCH ×2 (09:21→16:33)
[2021-04-09] MEDS: HEPARIN SODIUM,PORCINE/PF 5,000 UNIT/0.5 ML SYRINGE SQ SCH (09:21)
[2021-04-09] MEDS: SODIUM CHLORIDE 0.9% 1,000 ML IV SCH (09:29)
[2021-04-09 12:24] LABS: Glucose,Whole Blood 210 mg/dL (75-99)
[2021-04-09] MEDS: cloNIDine HCL 0.1 MG TAB PO SCH (12:31)
[2021-04-09] MEDS: hydrALAZINE HCL 50 MG TAB PO SCH (12:31)
[2021-04-09] MEDS ORDERED: cloNIDine HCL 0.1 MG TAB PO SCH (16:00)
[2021-04-09] MEDS ORDERED: hydrALAZINE HCL 25 MG TAB PO SCH (16:00)
[2021-04-09 16:22] VITALS: TEMP 98.1
[2021-04-09] MEDS: ISOSORBIDE MONONITRATE ER 30 MG TAB.ER.24H PO SCH (16:32)
[2021-04-09] MEDS: ASPIRIN 81 MG PO SCH (16:32)
[2021-04-09] MEDS: ESCITALOPRAM 10 MG TAB PO SCH (16:32)
[2021-04-09] MEDS: FUROSEMIDE 40 MG TAB PO SCH ×2 (16:32→16:47)
[2021-04-09] MEDS: LOSARTAN 50 MG TAB PO SCH (16:32)
[2021-04-09] MEDS: SPIRONOLACTONE 25 MG TAB PO SCH (16:33)
[2021-04-09] MEDS: DOXYCYCLINE 100 MG CAP PO SCH (16:33)
[2021-04-09 16:53] LABS: Glucose,Whole Blood 94 mg/dL (75-99)
[2021-04-09 17:07] VITALS: PULSE 72; RESP 18
[2021-04-09 17:49] VITALS: BP 185/89
--- NOTE | 2021-04-09 18:07 | PN ---
PROGRESS NOTE DATE OF SERVICE: 04/09/2021 REASON FOR FOLLOWUP: Pneumonia. INTERVAL HISTORY: The patient is afebrile. The patient is breathing more comfortably, currently on room air. Denies having any chest pain or shortness of breath. Occasional cough. No abdominal pain. Diarrhea has slowed down. PHYSICAL EXAMINATION: Blood pressure 153/76, pulse of 73, temperature 98.3. She is 100% on room air. General description is a middle-aged female up in the bed in no distress. Respiratory system: Unlabored breathing, decreased intensity of breath sounds. No wheeze. Heart S1, S2. Regular rate and rhythm. Abdomen soft, no tenderness. LABS: No new labs have been obtained today. DIAGNOSTIC IMPRESSION AND PLAN: Patient admitted to hospital with acute nausea, vomiting and diarrhea concerning for pneumonia, possible aspiration etiology. Patient is currently on oral Augmentin; to continue for another few days to finish her course of therapy and close outpatient followup. MMODL / IJN: [id number] /
--- NOTE | 2021-04-10 03:49 | P.DS ---
Providers Date of admission: 04/03/21 06:26 Expected date of discharge: 04/09/21 Attending physician: Hector Pena Consults: 04/03/21 06:26 Consult Physician Routine Consulting Provider: Aurelia Poe Consult Reason/Comments: arf Do you want consulting provider notified?: Yes 04/03/21 10:11 Consult Physician Stat Consulting Provider: Falguni Gracia Consult Reason/Comments: PNEUMONIA Do you want consulting provider notified?: Yes Primary care physician: Edith Cruz Hospital Course: Final Diagnosis Sepsis with fever and leukocytosis mostly secondary to Possible pneumonia Acute hypoxic respiratory failure, present on admission, secondary to possible end-stage renal disease and missed dialysis and possibility of aspiration pneumonia Uncontrolled hypertension with urgency upon admission End-stage renal disease on hemodialysis, missed hemodialysis on the presentation Acute diastolic CHF with ejection fraction 55-60% Diabetes mellitus with Hyperglycemia. Hemoglobin A1c elevated 9.4% on admission History of CVA/TIA Nonadherence to therapy DVT prophylaxis GI prophylaxis Discharge disposition Patient is being discharged in a stable condition with guarded prognosis to home. Patient will follow-up with Dr. Cruz in the outpatient setting upon discharge. Patient is to follow up with nephrology outpatient as well as ID . Patient to continue with hemodialysis m/w/f. Patient will continue on oral antibiotics in the form of Augmentin twice daily for 5 days to complete the course. Total time taken is greater than 35 minutes. Hospital course This is a pleasant 30 years old female with past medical history of end-stage renal disease on hemodialysis, hypertension, CVA/TIA. Presents because of exertional dyspnea of 1-2 days' duration after she missed her hemodialysis. Patient presents with cough and secretions but no phlegm. Also she has some diarrhea which is is down on the presentation. No abdominal pain but she vomited about 6-7 time. No chest pain. She has dyspnea of one-day duration as well. She does not make significant amount of urine. She missed her hemodialysis yesterday because she was supposed to take he sick son from Hospital back to home after his been treated for pneumonia I offered to do test and she declines. Risks and benefits are explained On the presentation she was hypertensive 237/121, currently blood pressure is 182/94 Labs showed leukocytosis of 16 K, unknown baseline. INR 0.9. Rest of CBC is unremarkable except for hemoglobin of 10.3. BMP shows sodium 133, creatinine 9.3, glucose 595 Liver enzymes [place] [address] Coronavirus not detected. EKG showed normal sinus rhythm at [address]-T changes and QTC at 467. Chest x-ray: Pulmonary edema. 04/04/2021 Patient state in bed most of the time however she states her breathing is better compared to yesterday but she is coughing a lot and asking for cough medicine, Robitussin is provided and Tylenol for chest pain with coughing. Her vitals looks stable, no more fevers since admission however her blood pressure is significantly elevated 207/102. She is on oral Lasix 40 mg twice a day and low Zartan has been added 100 mg daily. Her sugar was elevated more than 300 this morning however she was hypoglycemic yesterday. We will return Levemir 22 units at bedside down to 10 units daily and we will keep monitoring her glucose with ISS continued. Also we will start the patient on NovoLog 5 units with meals as her hemoglobin A1c is 9.4% Monitor WBC tomorrow. Urine legionella Antigen is pending. She remains on Zosyn and doxycycline. 04/05/2021 Patient is seen and evaluated and follow-up continues to be closely monitored. Multiple medical consultations including infectious disease, cardiology, ne phrology following closely. Patient currently receiving hemodialysis as she does on Monday/Monday/Monday. Patient is maintained on IV antibiotics in the form of Zosyn and oral doxycycline. Patient was maintained on insulin drip and we'll transition to her home dose and continue with sliding scale and pre-meal insulin and Accu-Cheks before meals and at bedtime. She had multiple low blood sugar readings today. Patient also continues to be hypertensive and medications being adjusted. Patient also continues with intermittent low-grade temps of 99.2 and 99.3. 04/06/2021 Patient is seen in follow up this morning and continues to have high and low blood sugars and maintained on sliding scale, pre-meal, and long acting and will continue. Patient blood pressure is elevated and clonidine being adjusted. Nephrology and infectious disease following closely. Patient is maintained on hemodialysis and will continue current schedule. WBC trending down and patient is afebrile. Continued on oral doxycycline and IV zosyn with ID following. Encouraged increased activity. 04/07/2021 Patient is seen this morning and continues to have elevated blood pressures and was maintained on IV vasotec along with multiple other hypertensive medications. Nephrology and ID following closely. Cardiology as needed. Patient to receive dialysis today. Patient to continue with IV zosyn and oral doxy and will transition to oral abx on discharge. Continue with accuchecks and close monitoring. Patients blood sugar was extremely low this morning and given an amp of dextrose. 04/08/2021 Patient is seen in follow-up this morning clinically looking better although continues to have extremely low blood sugars and elevated blood pressure. Patient having an episode of hypotension today and was given multiple blood pressure medications including Procardia XL for continued elevated hypertension last night. Patient is scheduled on a Monday/Monday/Monday schedule of hemodialysis with nephrology following closely. Patient to undergo renal ultrasound is scheduled for tomorrow morning and will have hemodialysis done. Will continue with Accu-Cheks before meals and at bedtime and continue to monitor closely. Patient is asymptomatic of hypoglycemia and hypotension. Patient states she uses long-acting 22 units at night and does extensive carb counting to manage and monitor her blood sugars. 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 Will repeat a.m. labs and continue to monitor closely. 04/06/2021 Patient is seen in follow up this morning and feels better and states she has no more diarrhea, nausea or vomiting and is tolerating diet. Blood pressure continues to be variable and recommend close outpatient monitoring and keeping a diary for pcp follow up. Patient received dialysis today and although having episodes of hypoglycemia is feeling better asking to go home. Renal ultrasound done and will follow up outpatient with nephrology. Patient to establish with her pcp Dr. Cruz as she just moved here. Endocrine referral to Dr. Coon placed. Patient will continue current dialysis schedule and follow up with nephrology outpatient. Patient to continue with oral augmentin for 5 days to complete the course. Close outpatient follow up with ID as well. Currently no reports of chest pain, shortness of breath, or palpitations. Patient is afebrile. No reports of nausea or vomiting and patient is tolerating diet. Patient will be discharged home today. Guarded prognosis. GENERAL: The patient is alert and oriented x3, no acute distress, well developed, well nourished HEENT: Pupils are round and equally reacting to light. EOMI. No scleral icterus. No conjunctival pallor. CARDIOVASCULAR: S1 and S2 muffled PULMONARY: Clear to auscultation with no wheezing or rhonchi noted ABDOMEN: Soft, non-tender, non-distended, normoactive bowel sounds. No palpable organomegaly. MUSCULOSKELETAL: No joint swelling or deformity. EXTREMITIES: No cyanosis, clubbing, or edema noted NEUROLOGICAL: Gross neurological examination did not reveal any focal deficits. SKIN: No rashes or lesions noted Please refer to medication reconciliation sheet for a list of medications. Patient Condition at Discharge: Stable Plan - Discharge Summary Discharge Rx Participant: Yes New Discharge Prescriptions: New Darbepoetin Tate [Aranesp] 40 mcg SQ Q7D each Amoxic-Pot Clav 500-125 mg [Augmentin 500-125 mg] 1 each PO BID 5 Days #10 tab cloNIDine HCL [Catapres] 0.2 mg PO TID 30 Days #180 tab Spironolactone [Aldactone] 25 mg PO DAILY 30 Days #30 tab Losartan [Cozaar] 100 mg PO DAILY 30 Days #60 tab Cholestyramine (with Sugar) [Questran Packet] 4 gm PO BID@1000,1800 #20 packet guaiFENesin-DM 100-10MG/5ML [Robitussin DM] 10 ml PO Q6HR PRN #100 ml PRN Reason: Cough Acetaminophen Tab [Tylenol] 650 mg PO Q6HR PRN #30 tab PRN Reason: Fever And/ Or Pain Continue Pantoprazole Sodium [Protonix] 40 mg PO DAILY Calcium Acetate 668mg 1,336 mg PO TID-W/MEALS hydrALAZINE HCL [Apresoline] 25 mg PO TID Escitalopram [Lexapro] 10 mg PO DAILY Aspirin EC [Ecotrin Low Dose] 81 mg PO DAILY INSULIN LISPRO (HumaLOG) [humaLOG] See Protocol SQ AC-TID Insulin Glargine [Lantus Vial] 22 unit SQ DAILY Isosorbide Mononitrate ER [Imdur] 30 mg PO DAILY Furosemide [Lasix] 40 mg PO BID Ergocalciferol (Vitamin D2) [Drisdol (50,000 Iu)] 1,250 mcg PO WEEKLY Carvedilol [Coreg] 25 mg PO BID Discontinued amLODIPine [Norvasc] 10 mg PO DAILY hydrALAZINE HCL [Apresoline] 100 mg PO TID Irbesartan [Avapro] 75 mg PO DAILY Discharge Medication List Aspirin EC [Ecotrin Low Dose] 81 mg PO DAILY 04/03/21 [History] Calcium Acetate 668mg 1,336 mg PO TID-W/MEALS 04/03/21 [History] Carvedilol [Coreg] 25 mg PO BID 04/03/21 [History] Ergocalciferol (Vitamin D2) [Drisdol (50,000 Iu)] 1,250 mcg PO WEEKLY 04/03/21 [History] Escitalopram [Lexapro] 10 mg PO DAILY 04/03/21 [History] Furosemide [Lasix] 40 mg PO BID 04/03/21 [History] INSULIN LISPRO (HumaLOG) [humaLOG] See Protocol SQ AC-TID 04/03/21 [History] Insulin Glargine [Lantus Vial] 22 unit SQ DAILY 04/03/21 [History] Isosorbide Mononitrate ER [Imdur] 30 mg PO DAILY 04/03/21 [History] Pantoprazole Sodium [Protonix] 40 mg PO DAILY 04/03/21 [History] hydrALAZINE HCL [Apresoline] 25 mg PO TID 04/03/21 [History] Acetaminophen Tab [Tylenol] 650 mg PO Q6HR PRN #30 tab 04/09/21 [Rx] Amoxic-Pot Clav 500-125 mg [Augmentin 500-125 mg] 1 each PO BID 5 Days #10 tab 04/09/21 [Rx] Cholestyramine (with Sugar) [Questran Packet] 4 gm PO BID@1000,1800 #20 packet 04/09/21 [Rx] Darbepoetin Tate [Aranesp] 40 mcg SQ Q7D each 04/09/21 [Rx] Losartan [Cozaar] 100 mg PO DAILY 30 Days #60 tab 04/09/21 [Rx] Spironolactone [Aldactone] 25 mg PO DAILY 30 Days #30 tab 04/09/21 [Rx] cloNIDine HCL [Catapres] 0.2 mg PO TID 30 Days #180 tab 04/09/21 [Rx] guaiFENesin-DM 100-10MG/5ML [Robitussin DM] 10 ml PO Q6HR PRN #100 ml 04/09/21 [Rx] Follow up Appointment(s)/Referral(s): Edith Cruz MD [Primary Care Provider] - 04/13/21 11:15 am Jon Coon MD [REFERRING] - 1 Week (Office Closed. ) Fox Chase DO [STAFF PHYSICIAN] - 04/12/21 ([facility] for [facility] normal appointment, no separate appointment with Becka. ) Patient Instructions/Handouts: Heart Failure (GEN), Chronic Hypertension (DC) Activity/Diet/Wound Care/Special Instructions: Patient to receive dialysis prior to discharge Activity Limited until follow-up Follow-up with primary care provider to establish Follow-up endocrine outpatient Follow-up nephrology in one week Continue to monitor blood pressure closely and notify physician if blood pressure is less than 120 systolic or greater than 140 Continue to monitor blood sugars closely and continue with your insulin regimen and keep a diary for primary follow-up Continue dialysis Monday/Monday/Monday Continue taking antibiotics for 5 days until finished Discharge Disposition: HOME SELF-CARE
== END 2021-04-09 19:06 | disposition home or self-care (01) | DRG 871 ==
LOC: EC 04:20 → 3SCARD 06:26
PROVIDERS: ADMIT Hospitalist; ATTEND Hospitalist
DX: A41.9 Sepsis, unspecified organism (principal); I50.31 Acute diastolic (congestive) heart failure; J18.9 Pneumonia, unspecified organism; N18.6 End stage renal disease; I13.2 Hypertensive heart and chronic kidney disease with heart failure and with stage 5 chronic kidney disease, or end stage renal disease; I16.1 Hypertensive emergency; J44.0 Chronic obstructive pulmonary disease with (acute) lower respiratory infection; N17.9 Acute kidney failure, unspecified; Z20.822 Contact with and (suspected) exposure to COVID-19; D63.1 Anemia in chronic kidney disease; E10.65 Type 1 diabetes mellitus with hyperglycemia; E10.649 Type 1 diabetes mellitus with hypoglycemia without coma; E10.22 Type 1 diabetes mellitus with diabetic chronic kidney disease; F41.9 Anxiety disorder, unspecified; K21.9 Gastro-esophageal reflux disease without esophagitis; M89.9 Disorder of bone, unspecified; Z79.899 Other long term (current) drug therapy; Z79.82 Long term (current) use of aspirin; Z79.4 Long term (current) use of insulin; Z99.2 Dependence on renal dialysis; Z86.73 Personal history of transient ischemic attack (TIA), and cerebral infarction without residual deficits; Z82.49 Family history of ischemic heart disease and other diseases of the circulatory system; Z82.0 Family history of epilepsy and other diseases of the nervous system; Z80.8 Family history of malignant neoplasm of other organs or systems
CPT/HCPCS: 36415; 71045; 80048; 80053; 81001; 82088; 82728; 83036; 83540; 83550; 83615; 83735; 83835; 83880; 84145; 84244; 85025; 85027; 85610; 85730; 86140; 87040; 87449; 87635; 90935; 93005; 93306; 93975; 96374; 96375; 99291

== ENCOUNTER 2021-04-12 14:34 | Inpatient (IN) | payer MEDICARE ==
[2021-04-12 14:56] LABS: Glucose,Whole Blood 66 mg/dL (75-99)
[2021-04-12] MEDS ORDERED: HYDROmorphone 0.5 MG/0.5 ML SYRINGE IVP STA (15:42)
[2021-04-12 15:46] LABS: Glucose,Whole Blood 35 mg/dL (75-99)
--- NOTE | 2021-04-12 15:57 | XR ---
EXAMINATION TYPE: XR chest 1V portable DATE OF EXAM: 04/12/2021 COMPARISON: 04/03/2021 INDICATION: Chest pain TECHNIQUE: Single frontal view of the chest is obtained. FINDINGS: The heart size is mildly prominent. The pulmonary vasculature is prominent. Increased lung markings are present diffusely. These have improved from 04/03/2021. IMPRESSION: 1. Changes which could correlate with congestive heart failure in the proper clinical setting. 2. Significant improvement of the patchy infiltrate present previously. 3. Follow up exams can be performed as clinically indicated.
[2021-04-12 16:08] LABS: Glucose,Whole Blood 56 mg/dL (75-99)
[2021-04-12 16:19] LABS: Anisocytosis Slight; Basophils # (A) 0.1 k/uL (0-0.2); Basophils % (A) 1 %; Eosinophils # (A) 0.2 k/uL (0-0.7); Eosinophils % (A) 3 %; HCT 28.8 % (34.0-46.0); Lymphocytes # (A) 0.9 k/uL (1.0-4.8); Lymphocytes % (A) 13 %; MCH 31.3 pg (25.0-35.0); MCHC 34.7 g/dL (31.0-37.0); MCV 90.2 fL (80.0-100.0); Mean Platelet Volume 9.2; Monocytes # (A) 0.4 k/uL (0-1.0); Monocytes % (A) 6 %; Neutrophils % (A) 75 %; Platelet Count 223 k/uL (150-450); Poikilocytosis Slight; RBC 3.19 m/uL (3.80-5.40); RDW 18.5 % (11.5-15.5); WBC 6.6 k/uL (3.8-10.6)
[2021-04-12] MEDS ORDERED: DEXTROSE 50% SYRINGE 50 ML IVP STA (16:25)
[2021-04-12 16:34] LABS: Albumin 4.2 g/dL (3.5-5.0); Calcium 8.2 mg/dL (8.4-10.2); Magnesium 2.3 mg/dL (1.6-2.3); Potassium 5.2 mmol/L (3.5-5.1); Total Bilirubin 0.8 mg/dL (0.2-1.3); Total Protein 6.7 g/dL (6.3-8.2)
[2021-04-12 16:36] LABS: Partial Thromboplastin Time 25.6 sec (22.0-30.0); Prothrombin Time 10.6 sec (9.0-12.0)
[2021-04-12 16:48] LABS: Glucose,Whole Blood 41 mg/dL (75-99)
[2021-04-12 16:50] LABS: Glucose,Whole Blood 43 mg/dL (75-99)
[2021-04-12 18:47] LABS: Glucose,Whole Blood 113 mg/dL (75-99)
[2021-04-12] MEDS ORDERED: NALOXONE 0.4 MG/ML 1 ML VIAL IV PRN (19:05)
--- NOTE | 2021-04-12 19:05 | ED ---
Recheck HPI - General Chief Complaint: Recheck/Abnormal Lab/Rx Stated Complaint: hypoglycemia Time Seen by Provider: 04/12/21 15:03 Source: patient, EMS Mode of arrival: EMS Limitations: no limitations - History of Present Illness Initial Comments: Patient presents after syncopal episode. She has a history of diabetes. She was hypoglycemic. She received IV D50. She did regain consciousness. Since then she has had multiple episodes of acute hypoglycemia again. She has no chest or belly or back pain. She has no nausea or vomiting. She has no focal weakness. She has a history of kidney failure and gets dialysis. - Related Data Home Medications Medication Instructions Recorded Confirmed Aspirin EC [Ecotrin Low Dose] 81 mg PO DAILY 04/03/21 04/12/21 Calcium Acetate 668mg 1,336 mg PO TID-W/MEALS 04/03/21 04/12/21 Carvedilol [Coreg] 25 mg PO BID 04/03/21 04/12/21 Ergocalciferol (Vitamin D2) 1,250 mcg PO WEEKLY 04/03/21 04/12/21 [Drisdol (50,000 Iu)] Escitalopram [Lexapro] 10 mg PO HS 04/03/21 04/12/21 Furosemide [Lasix] 40 mg PO BID 04/03/21 04/12/21 INSULIN LISPRO (HumaLOG) [humaLOG] See Protocol SQ AC-TID 04/03/21 04/12/21 Insulin Glargine [Lantus Vial] 22 unit SQ DAILY 04/03/21 04/12/21 Isosorbide Mononitrate ER [Imdur] 30 mg PO HS 04/03/21 04/12/21 Pantoprazole Sodium [Protonix] 40 mg PO DAILY 04/03/21 04/12/21 hydrALAZINE HCL [Apresoline] 25 mg PO TID 04/03/21 04/12/21 Amoxic-Pot Clav 500-125 mg 1 tab PO BID 04/12/21 04/12/21 [Augmentin 500-125 mg] Previous Rx's Medication Instructions Recorded Acetaminophen Tab [Tylenol] 650 mg PO Q6HR PRN #30 tab 04/09/21 Cholestyramine (with Sugar) 4 gm PO BID@1000,1800 #20 packet 04/09/21 [Questran Packet] Darbepoetin Tate [Aranesp] 40 mcg SQ Q7D each 04/09/21 Losartan [Cozaar] 100 mg PO DAILY 30 Days #60 tab 04/09/21 Spironolactone [Aldactone] 25 mg PO DAILY 30 Days #30 tab 04/09/21 cloNIDine HCL [Catapres] 0.2 mg PO TID 30 Days #180 tab 04/09/21 guaiFENesin-DM 100-10MG/5ML 10 ml PO Q6HR PRN #100 ml 04/09/21 [Robitussin DM] Allergies Allergy/AdvReac Type Severity Reaction Status Date / Time iodine Allergy Anaphylaxis Verified 04/12/21 16:11 Review of Systems ROS Statement: Those systems with pertinent positive or pertinent negative responses have been documented in the HPI. ROS Other: All systems not noted in ROS Statement are negative. Past Medical History Past Medical History: CVA/TIA, Dialysis, Hypertension Additional Past Medical History / Comment(s): Kidney disease History of Any Multi-Drug Resistant Organisms: None Reported Past Surgical History: Appendectomy, Section, Cholecystectomy Additional Past Surgical History / Comment(s): fistula left arm Past Anesthesia/Blood Transfusion Reactions: No Reported Reaction Past Psychological History: No Psychological Hx Reported Smoking Status: Never smoker Past Alcohol Use History: None Reported Past Drug Use History: None Reported - Past Family History Mother Family Medical History: Cancer, Hypertension Additional Family Medical History / Comment(s): Thyroid cancer, bipolar Father Additional Family Medical History / Comment(s): Epilepsy General Exam Limitations: no limitations General appearance: alert, in no apparent distress Head exam: Present: atraumatic, normocephalic, normal inspection Eye exam: Present: normal appearance, PERRL, EOMI. Absent: scleral icterus, conjunctival injection, periorbital swelling ENT exam: Present: normal exam, mucous membranes moist Neck exam: Present: normal inspection. Absent: tenderness, meningismus, lymphadenopathy Respiratory exam: Present: normal lung sounds bilaterally. Absent: respiratory distress, wheezes, rales, rhonchi, stridor Cardiovascular Exam: Present: regular rate, normal rhythm, normal heart sounds. Absent: systolic murmur, diastolic murmur, rubs, gallop, clicks GI/Abdominal exam: Present: soft, normal bowel sounds. Absent: distended, tenderness, guarding, rebound, rigid Extremities exam: Present: normal inspection, full ROM, normal capillary refill. Absent: tenderness, pedal edema, joint swelling, calf tenderness Back exam: Present: normal inspection Neurological exam: Present: alert, oriented X3, CN II-XII intact Psychiatric exam: Present: normal affect, normal mood Skin exam: Present: warm, dry, intact, normal color. Absent: rash Course Vital Signs 04/12/21 04/12/21 04/12/21 14:41 15:56 15:58 Temperature 98.5 F Pulse Rate 72 72 Respiratory 16 16 Rate Blood Pressure 225/116 212/112 O2 Sat by Pulse 95 88 L 94 L Oximetry 04/12/21 18:48 Temperature Pulse Rate 73 Respiratory 16 Rate Blood Pressure 231/122 O2 Sat by Pulse 98 Oximetry Medical Decision Making - Medical Decision Making Patient presents with acute and recurrent hypoglycemia requiring repeated intervention. I have started the patient on a glucose normal saline drip. Patient will be admitted to the hospital. - Lab Data Result diagrams: 04/12/21 15:58 04/12/21 15:58 Lab Results 04/12/21 04/12/21 04/12/21 Range/Units 14:55 15:44 15:58 WBC 6.6 (3.8-10.6) k/uL RBC 3.19 L (3.80-5.40) m/uL Hgb 10.0 L (11.4-16.0) gm/dL Hct 28.8 L (34.0-46.0) % MCV 90.2 (80.0-100.0) fL MCH 31.3 (25.0-35.0) pg MCHC 34.7 (31.0-37.0) g/dL RDW 18.5 H (11.5-15.5) % Plt Count 223 (150-450) k/uL MPV 9.2 Neutrophils % 75 % Lymphocytes % 13 % Monocytes % 6 % Eosinophils % 3 % Basophils % 1 % Neutrophils # 5.0 (1.3-7.7) k/uL Lymphocytes # 0.9 L (1.0-4.8) k/uL Monocytes # 0.4 (0-1.0) k/uL Eosinophils # 0.2 (0-0.7) k/uL Basophils # 0.1 (0-0.2) k/uL Poikilocytosis Slight Anisocytosis Slight PT (9.0-12.0) sec INR (<1.2) APTT (22.0-30.0) sec Sodium (137-145) mmol/L Potassium (3.5-5.1) mmol/L Chloride (98-107) mmol/L Carbon Dioxide (22-30) mmol/L Anion Gap mmol/L BUN (7-17) mg/dL Creatinine (0.52-1.04) mg/dL Est GFR (CKD-EPI)AfAm (>60 ml/min/1.73 sqM) Est GFR (CKD-EPI)NonAf (>60 ml/min/1.73 sqM) Glucose (74-99) mg/dL POC Glucose (mg/dL) 66 L 35 L (75-99) mg/dL POC Glu [employer] ID Stephanie, Bushra Stephanie, Bushra Calcium (8.4-10.2) mg/dL Magnesium (1.6-2.3) mg/dL Total Bilirubin (0.2-1.3) mg/dL AST (14-36) U/L ALT (4-34) U/L Alkaline Phosphatase (38-126) U/L Troponin I (0.000-0.034) ng/mL Total Protein (6.3-8.2) g/dL Albumin (3.5-5.0) g/dL 04/12/21 04/12/21 04/12/21 Range/Units 15:58 15:58 15:58 WBC (3.8-10.6) k/uL RBC (3.80-5.40) m/uL Hgb (11.4-16.0) gm/dL Hct (34.0-46.0) % MCV (80.0-100.0) fL MCH (25.0-35.0) pg MCHC (31.0-37.0) g/dL RDW (11.5-15.5) % Plt Count (150-450) k/uL MPV Neutrophils % % Lymphocytes % % Monocytes % % Eosinophils % % Basophils % % Neutrophils # (1.3-7.7) k/uL Lymphocytes # (1.0-4.8) k/uL Monocytes # (0-1.0) k/uL Eosinophils # (0-0.7) k/uL Basophils # (0-0.2) k/uL Poikilocytosis Anisocytosis PT 10.6 (9.0-12.0) sec INR 1.0 (<1.2) APTT 25.6 (22.0-30.0) sec Sodium 139 (137-145) mmol/L Potassium 5.2 H (3.5-5.1) mmol/L Chloride 106 (98-107) mmol/L Carbon Dioxide 15 L (22-30) mmol/L Anion Gap 18 mmol/L BUN 73 H (7-17) mg/dL Creatinine 11.24 H* (0.52-1.04) mg/dL Est GFR (CKD-EPI)AfAm 5 (>60 ml/min/1.73 sqM) Est GFR (CKD-EPI)NonAf 4 (>60 ml/min/1.73 sqM) Glucose 36 L* (74-99) mg/dL POC Glucose (mg/dL) (75-99) mg/dL POC Glu [employer] ID Calcium 8.2 L (8.4-10.2) mg/dL Magnesium 2.3 (1.6-2.3) mg/dL Total Bilirubin 0.8 (0.2-1.3) mg/dL AST 27 (14-36) U/L ALT 26 (4-34) U/L Alkaline Phosphatase 111 (38-126) U/L Troponin I 0.024 (0.000-0.034) ng/mL Total Protein 6.7 (6.3-8.2) g/dL Albumin 4.2 (3.5-5.0) g/dL 04/12/21 04/12/21 04/12/21 Range/Units 16:07 16:47 16:49 WBC (3.8-10.6) k/uL RBC (3.80-5.40) m/uL Hgb (11.4-16.0) gm/dL Hct (34.0-46.0) % MCV (80.0-100.0) fL MCH (25.0-35.0) pg MCHC (31.0-37.0) g/dL RDW (11.5-15.5) % Plt Count (150-450) k/uL MPV Neutrophils % % Lymphocytes % % Monocytes % % Eosinophils % % Basophils % % Neutrophils # (1.3-7.7) k/uL Lymphocytes # (1.0-4.8) k/uL Monocytes # (0-1.0) k/uL Eosinophils # (0-0.7) k/uL Basophils # (0-0.2) k/uL Poikilocytosis Anisocytosis PT (9.0-12.0) sec INR (<1.2) APTT (22.0-30.0) sec Sodium (137-145) mmol/L Potassium (3.5-5.1) mmol/L Chloride (98-107) mmol/L Carbon Dioxide (22-30) mmol/L Anion Gap mmol/L BUN (7-17) mg/dL Creatinine (0.52-1.04) mg/dL Est GFR (CKD-EPI)AfAm (>60 ml/min/1.73 sqM) Est GFR (CKD-EPI)NonAf (>60 ml/min/1.73 sqM) Glucose (74-99) mg/dL POC Glucose (mg/dL) 56 L 41 L 43 L (75-99) mg/dL POC Glu [employer] ID Stephanie, Bushra Stephanie, Bushra Stephanie, Bushra Calcium (8.4-10.2) mg/dL Magnesium (1.6-2.3) mg/dL Total Bilirubin (0.2-1.3) mg/dL AST (14-36) U/L ALT (4-34) U/L Alkaline Phosphatase (38-126) U/L Troponin I (0.000-0.034) ng/mL Total Protein (6.3-8.2) g/dL Albumin (3.5-5.0) g/dL 04/12/21 Range/Units 18:45 WBC (3.8-10.6) k/uL RBC (3.80-5.40) m/uL Hgb (11.4-16.0) gm/dL Hct (34.0-46.0) % MCV (80.0-100.0) fL MCH (25.0-35.0) pg MCHC (31.0-37.0) g/dL RDW (11.5-15.5) % Plt Count (150-450) k/uL MPV Neutrophils % % Lymphocytes % % Monocytes % % Eosinophils % % Basophils % % Neutrophils # (1.3-7.7) k/uL Lymphocytes # (1.0-4.8) k/uL Monocytes # (0-1.0) k/uL Eosinophils # (0-0.7) k/uL Basophils # (0-0.2) k/uL Poikilocytosis Anisocytosis PT (9.0-12.0) sec INR (<1.2) APTT (22.0-30.0) sec Sodium (137-145) mmol/L Potassium (3.5-5.1) mmol/L Chloride (98-107) mmol/L Carbon Dioxide (22-30) mmol/L Anion Gap mmol/L BUN (7-17) mg/dL Creatinine (0.52-1.04) mg/dL Est GFR (CKD-EPI)AfAm (>60 ml/min/1.73 sqM) Est GFR (CKD-EPI)NonAf (>60 ml/min/1.73 sqM) Glucose (74-99) mg/dL POC Glucose (mg/dL) 113 H (75-99) mg/dL POC Glu [employer] ID Bushra Brown Calcium (8.4-10.2) mg/dL Magnesium (1.6-2.3) mg/dL Total Bilirubin (0.2-1.3) mg/dL AST (14-36) U/L ALT (4-34) U/L Alkaline Phosphatase (38-126) U/L Troponin I (0.000-0.034) ng/mL Total Protein (6.3-8.2) g/dL Albumin (3.5-5.0) g/dL Twelve-lead EKG shows ventricular rate 72 bpm, normal ID interval and QRS complexes, no ST elevation or depression, interpreted by me as normal sinus rhythm. 04/12/21 19:03 Disposition Clinical Impression: Hypoglycemia Disposition: ADMITTED IP TO THIS HOSP Condition: Fair Is patient prescribed a controlled substance at d/c from ED?: No Referrals: Edith Cruz MD [Primary Care Provider] - 1-2 days
[2021-04-12] MEDS: DEXTROSE 5%-0.9% NACL 1,000 ML IV SCH (20:15)
[2021-04-12] MEDS: cloNIDine HCL 0.2 MG TAB PO SCH (21:15)
[2021-04-12] MEDS: ISOSORBIDE MONONITRATE ER 30 MG TAB.ER.24H PO SCH (21:15)
[2021-04-12] MEDS: hydrALAZINE HCL 25 MG TAB PO SCH (21:15)
[2021-04-12] MEDS: carvediloL 12.5 MG TAB PO SCH (21:15)
[2021-04-12] MEDS: ESCITALOPRAM 10 MG TAB PO SCH (21:15)
[2021-04-12] MEDS: FUROSEMIDE 40 MG TAB PO SCH (21:15)
[2021-04-12] MEDS: ACETAMINOPHEN TAB 325 MG TAB PO PRN (21:19)
[2021-04-13 01:28] LABS: Glucose,Whole Blood 229 mg/dL (75-99)
[2021-04-13 08:27] LABS: Glucose,Whole Blood 82 mg/dL (75-99)
[2021-04-13] MEDS: CALCIUM ACETATE 667 MG TAB PO SCH ×3 (08:34→17:20)
[2021-04-13] MEDS: cloNIDine HCL 0.2 MG TAB PO SCH ×3 (08:36→22:08)
[2021-04-13] MEDS: LOSARTAN 50 MG TAB PO SCH (08:43)
[2021-04-13] MEDS: carvediloL 12.5 MG TAB PO SCH ×2 (08:43→17:20)
[2021-04-13] MEDS: PANTOPRAZOLE 40 MG TABLET PO SCH (08:43)
[2021-04-13] MEDS: hydrALAZINE HCL 25 MG TAB PO SCH (08:43)
[2021-04-13] MEDS: SPIRONOLACTONE 25 MG TAB PO SCH (08:43)
[2021-04-13] MEDS: ASPIRIN 81 MG PO SCH (08:43)
[2021-04-13] MEDS: FUROSEMIDE 40 MG TAB PO SCH ×2 (08:43→17:20)
[2021-04-13] MEDS: CHOLESTYRAMINE (WITH SUGAR) 4 GM PACKET PO SCH ×2 (10:07→17:20)
[2021-04-13] MEDS ORDERED: guaiFENesin-DM 100-10MG/5ML 10 ML CUP PO PRN (10:10)
[2021-04-13 12:23] LABS: Glucose,Whole Blood 113 mg/dL (75-99)
[2021-04-13] MEDS: hydrALAZINE HCL 50 MG TAB PO SCH ×3 (12:30→22:08)
[2021-04-13] MEDS: AMOXIC-POT CLAV 500-125 MG 1 EACH TAB PO SCH ×2 (12:31→20:55)
[2021-04-13] MEDS: ACETAMINOPHEN TAB 325 MG TAB PO PRN (12:34)
[2021-04-13 12:41] LABS: Glucose,Whole Blood 109 mg/dL (75-99)
--- NOTE | 2021-04-13 15:29 | P.HPIM ---
History of Present Illness H&P Date: 04/13/21 This is a pleasant 30-year-old female who was recently admitted for a possible syncopal episode and patient was found to be hypoglycemic. Patient was brought to the emergency department as she was scheduled to go to hemodialysis and felt lightheaded and dizzy and passed out. Patient was recently admitted for possible aspiration pneumonia with missed hemodialysis and fluid overload and also multiple episodes of hyper and hypoglycemia. Patient is continued on long- acting of 22 units daily and patient states she strictly carb counts in the outpatient setting. [place] and is working on establishing with primary care provider Dr. Edith Cruz along with continuing hemodialysis and was recently referred to endocrine Dr. Coon but was just discharged from the hospital on Monday. Patient does have a past medical history of CVA/TIA, end-stage renal disease on hemodialysis, hypertension, chronic kidney disease, diabetes mellitus type 1. On admission to the ER she was given an amp of glucose and became more responsive and was admitted for further evaluation. Consulted nephrology for hemodialysis as patient missed dialysis yesterday. On admission patient's labs showed a white blood count of 6.6, hemoglobin of 10, platelet count of 223, sodium 139, potassium 5.2, BUN 73, creatinine 11.24, glucose 36, magnesium 2.3, troponin 0.024 and COVID-19 was negative. Chest x-ray shows some changes that could correlate with CHF with significant improvement of the patchy infiltrate is presented previously and hard size is mildly prominent. EKG showed normal sinus rhythm with a possible left atrial enlargement, T wave abnormality consider lateral ischemia with prolonged QT of 476/521. Recommend continue with Accu- Cheks before meals and at bedtime and patient was started on a D5 with normal saline. Review of Systems Constitutional: Denies chills, Denies fever Ears, nose, mouth and throat: Denies headache, Denies sore throat Cardiovascular: Denies chest pain, Denies shortness of breath Respiratory: Denies cough Gastrointestinal: Denies abdominal pain, Denies diarrhea, Denies nausea, Denies vomiting Genitourinary: Denies dysuria, Denies hematuria Musculoskeletal: Denies myalgias Integumentary: Denies pruritus, Denies rash Neurological: Denies numbness, Denies weakness Psychiatric: Denies anxiety, Denies depression Endocrine: Reports cold intolerance, Reports fatigue, Reports low blood sugars Past Medical History Past Medical History: CVA/TIA, Dialysis, Hypertension Additional Past Medical History / Comment(s): Kidney disease History of Any Multi-Drug Resistant Organisms: None Reported Past Surgical History: Appendectomy, Section, Cholecystectomy Additional Past Surgical History / Comment(s): fistula left arm Past Anesthesia/Blood Transfusion Reactions: No Reported Reaction Past Psychological History: No Psychological Hx Reported Smoking Status: Never smoker Past Alcohol Use History: None Reported Past Drug Use History: None Reported - Past Family History Mother Family Medical History: Cancer, Hypertension Additional Family Medical History / Comment(s): Thyroid cancer, bipolar Father Additional Family Medical History / Comment(s): Epilepsy Medications and Allergies Home Medications Medication Instructions Recorded Confirmed Type Aspirin EC [Ecotrin Low Dose] 81 mg PO DAILY 04/03/21 04/12/21 History Calcium Acetate 668mg 1,336 mg PO TID-W/MEALS 04/03/21 04/12/21 History Carvedilol [Coreg] 25 mg PO BID 04/03/21 04/12/21 History Ergocalciferol (Vitamin D2) 1,250 mcg PO WEEKLY 04/03/21 04/12/21 History [Drisdol (50,000 Iu)] Escitalopram [Lexapro] 10 mg PO HS 04/03/21 04/12/21 History Furosemide [Lasix] 40 mg PO BID 04/03/21 04/12/21 History INSULIN LISPRO (HumaLOG) [humaLOG] See Protocol SQ AC-TID 04/03/21 04/12/21 History Insulin Glargine [Lantus Vial] 22 unit SQ DAILY 04/03/21 04/12/21 History Isosorbide Mononitrate ER [Imdur] 30 mg PO HS 04/03/21 04/12/21 History Pantoprazole Sodium [Protonix] 40 mg PO DAILY 04/03/21 04/12/21 History hydrALAZINE HCL [Apresoline] 25 mg PO TID 04/03/21 04/12/21 History Acetaminophen Tab [Tylenol] 650 mg PO Q6HR PRN #30 tab 04/09/21 04/12/21 Rx Cholestyramine (with Sugar) 4 gm PO BID@1000,1800 #20 packet 04/09/21 04/12/21 Rx [Questran Packet] Darbepoetin Tate [Aranesp] 40 mcg SQ Q7D each 04/09/21 04/12/21 Rx Losartan [Cozaar] 100 mg PO DAILY 30 Days #60 tab 04/09/21 04/12/21 Rx Spironolactone [Aldactone] 25 mg PO DAILY 30 Days #30 tab 04/09/21 04/12/21 Rx cloNIDine HCL [Catapres] 0.2 mg PO TID 30 Days #180 tab 04/09/21 04/12/21 Rx guaiFENesin-DM 100-10MG/5ML 10 ml PO Q6HR PRN #100 ml 04/09/21 04/12/21 Rx [Robitussin DM] Amoxic-Pot Clav 500-125 mg 1 tab PO BID 04/12/21 04/12/21 History [Augmentin 500-125 mg] Allergies Allergy/AdvReac Type Severity Reaction Status Date / Time iodine Allergy Anaphylaxis Verified 04/12/21 16:11 Physical Exam Vitals: Vital Signs Temp Pulse Pulse Resp BP BP Pulse Ox 04/13/21 07:00 99.2 F 84 18 218/115 98 04/13/21 01:15 100.1 F H 91 20 212/98 94 L 04/12/21 22:20 98.9 F 86 22 195/105 95 04/12/21 21:19 81 16 228/121 97 04/12/21 18:48 73 16 231/122 98 04/12/21 15:58 72 16 212/112 94 L 04/12/21 15:56 88 L 04/12/21 14:41 98.5 F 72 16 225/116 95 Intake and Output 04/12/21 04/13/21 04/13/21 22:59 06:59 14:59 Other: Voiding Method Toilet # Voids 2 Weight 54.431 kg Gen: This is a 30-year-old female awake, alert and oriented 3, thin built, in no acute distress. HEENT: Head is atraumatic, normocephalic. Pupils equal, round. Sclerae is anicteric. NECK: Supple. No JVD. No lymphadenopathy. No thyromegaly. LUNGS: Clear to auscultation. No wheezes or rhonchi. No intercostal retractions. HEART: Regular rate and rhythm. No murmur. ABDOMEN: Soft. Bowel sounds are present. No masses. No tenderness. EXTREMITIES: No pedal edema. No calf tenderness. NEUROLOGICAL: Patient is awake, alert and oriented x3. Cranial nerves 2 through 12 are grossly intact. Results CBC & Chem 7: 04/12/21 15:58 04/12/21 15:58 Labs: Abnormal Lab Results - Last 24 Hours (Table) 04/12/21 04/12/21 04/12/21 Range/Units 14:55 15:44 15:58 RBC 3.19 L (3.80-5.40) m/uL Hgb 10.0 L (11.4-16.0) gm/dL Hct 28.8 L (34.0-46.0) % RDW 18.5 H (11.5-15.5) % Lymphocytes # 0.9 L (1.0-4.8) k/uL Potassium (3.5-5.1) mmol/L Carbon Dioxide (22-30) mmol/L BUN (7-17) mg/dL Creatinine (0.52-1.04) mg/dL Glucose (74-99) mg/dL POC Glucose (mg/dL) 66 L 35 L (75-99) mg/dL Calcium (8.4-10.2) mg/dL 04/12/21 04/12/21 04/12/21 Range/Units 15:58 16:07 16:47 RBC (3.80-5.40) m/uL Hgb (11.4-16.0) gm/dL Hct (34.0-46.0) % RDW (11.5-15.5) % Lymphocytes # (1.0-4.8) k/uL Potassium 5.2 H (3.5-5.1) mmol/L Carbon Dioxide 15 L (22-30) mmol/L BUN 73 H (7-17) mg/dL Creatinine 11.24 H* (0.52-1.04) mg/dL Glucose 36 L* (74-99) mg/dL POC Glucose (mg/dL) 56 L 41 L (75-99) mg/dL Calcium 8.2 L (8.4-10.2) mg/dL 04/12/21 04/12/21 04/13/21 Range/Units 16:49 18:45 01:26 RBC (3.80-5.40) m/uL Hgb (11.4-16.0) gm/dL Hct (34.0-46.0) % RDW (11.5-15.5) % Lymphocytes # (1.0-4.8) k/uL Potassium (3.5-5.1) mmol/L Carbon Dioxide (22-30) mmol/L BUN (7-17) mg/dL Creatinine (0.52-1.04) mg/dL Glucose (74-99) mg/dL POC Glucose (mg/dL) 43 L 113 H 229 H (75-99) mg/dL Calcium (8.4-10.2) mg/dL Thrombosis Risk Factor Assmnt - DVT/VTE Prophylaxis DVT/VTE Prophylaxis: Pharmacologic Prophylaxis ordered Assessment and Plan Assessment: Hypoglycemia Possible syncope most likely hypoglycemic event as patient responded to an amp of glucose Diabetes mellitus type 1, uncontrolled with hypo-and hyperglycemia Chronic kidney disease End-stage renal disease, maintained on hemodialysis Monday/Monday/Monday Acute on chronic diastolic congestive heart failure, not in acute exacerbation [place] history of CVA/TIA Noncompliance with medications and treatments Recent hospital admission for acute hypoxic respiratory failure, possibly secondary to aspiration pneumonia Hypertension DVT prophylaxis GI prophylaxis Full code Plan: Blood sugars have been on the lower side and being closely monitored and recommend continue with Accu-Cheks before meals and at bedtime and as needed. Patient is currently maintained on IV dextrose 5% in normal saline and will continue with attempts to wean. Encouraged oral intake. Blood pressures have been elevated and most recently hospitalized for hypertensive urgency along with uncontrolled high per and hypoglycemia and missed dialysis and will consult nephrology and patient to receive dialysis today. Will continue oral Augmentin as she was recently hospitalized for possible aspiration pneumonia to complete the course. Will repeat labs and monitor closely. Time with Patient: Greater than 30
[2021-04-13 17:53] LABS: Glucose,Whole Blood 201 mg/dL (75-99)
[2021-04-13 20:17] LABS: Glucose,Whole Blood 288 mg/dL (75-99)
--- NOTE | 2021-04-13 20:48 | CONS ---
CONSULTATION REASON FOR CONSULT: End-stage renal disease. HISTORY OF PRESENT ILLNESS: The patient is a 30-year-old female with end-stage renal disease, on hemodialysis on a Monday, Monday, Monday schedule. The patient was admitted to the hospital with low blood sugar. She did not make it to dialysis yesterday and was dialyzed early this morning. She had been running as low as 35 and 56 for quite a few hours. The patient was maintained on D5 which is now decreased. No fevers, chills, nausea, vomiting or abdominal pain. PAST MEDICAL HISTORY: End-stage renal disease, CKD mineral bone disorder, type 2 diabetes, hypertension, history of CVA/TIA. PAST SURGICAL HISTORY: Appendectomy, , cholecystectomy, AV fistula left arm. SOCIAL HISTORY: Negative for smoking, drug abuse or alcohol abuse. MEDICATIONS: Medications prior to admission included aspirin, PhosLo, Coreg, Lexapro, Lasix, insulin, Imdur, Protonix, hydralazine, Augmentin,Tylenol, Aranesp, Cozaar, Aldactone, clonidine. ALLERGIES: IODINE. REVIEW OF SYSTEMS: As per HPI. Other systems negative. EXAMINATION: Comfortable, awake, alert, oriented x3, not in any acute distress. Blood pressure 157/94, heart rate 77 per minute. She is afebrile. Examination of the heart S1, S2. Examination of the lungs, bilateral breath sounds are heard. Abdomen is soft, nontender. Examination of lower extremities shows no significant edema. 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 LAB: Show sodium 139, potassium 5.2, CO2 is 16, BUN 73, creatinine 11.2, hemoglobin 10.0. ASSESSMENT: 1. End-stage renal disease, on hemodialysis on a Monday, Monday, Monday schedule. Patient missed her dialysis yesterday. She was dialyzed early this morning, UF of about 5 L. 2. Severe volume overload, currently improved, post ultrafiltration of about 5 L. 3. Hypertension, partly volume sensitive, improved post dialysis. 4. Metabolic acidosis secondary to renal failure. Expect improvement post dialysis. 5. Hypoglycemia, currently improved. The patient is able to tolerate oral intake. Her serum glucose is running above 100. She could likely be discharged and follow up as outpatient for hemodialysis tomorrow. PLAN: Hemodialysis tomorrow if the patient is still hospitalized. Otherwise she can be dialyzed tomorrow as outpatient. MMODL / IJN: [id number] /
[2021-04-13] MEDS: ESCITALOPRAM 10 MG TAB PO SCH (20:55)
[2021-04-13] MEDS: ISOSORBIDE MONONITRATE ER 30 MG TAB.ER.24H PO SCH (20:55)
[2021-04-13] MEDS: DEXTROSE 5%-0.9% NACL 1,000 ML IV SCH (20:56)
[2021-04-14 00:26] LABS: Glucose,Whole Blood 315 mg/dL (75-99)
[2021-04-14] MEDS: ACETAMINOPHEN TAB 325 MG TAB PO PRN ×3 (01:24→22:46)
[2021-04-14 06:01] LABS: Glucose,Whole Blood 375 mg/dL (75-99)
[2021-04-14 07:49] LABS: Glucose,Whole Blood 406 mg/dL (75-99)
[2021-04-14] MEDS: INSULIN DETEMIR (LEVEMIR) 100 UNIT/ML SYR SQ SCH (08:49)
[2021-04-14] MEDS: AMOXIC-POT CLAV 500-125 MG 1 EACH TAB PO SCH ×2 (08:50→20:33)
[2021-04-14] MEDS: carvediloL 12.5 MG TAB PO SCH ×2 (08:50→17:00)
[2021-04-14] MEDS: ASPIRIN 81 MG PO SCH (08:50)
[2021-04-14] MEDS: hydrALAZINE HCL 50 MG TAB PO SCH ×3 (08:50→21:39)
[2021-04-14] MEDS: PANTOPRAZOLE 40 MG TABLET PO SCH (08:50)
[2021-04-14] MEDS: CALCIUM ACETATE 667 MG TAB PO SCH ×3 (08:50→16:58)
[2021-04-14] MEDS: SPIRONOLACTONE 25 MG TAB PO SCH (08:50)
[2021-04-14] MEDS: FUROSEMIDE 40 MG TAB PO SCH ×2 (08:50→16:58)
[2021-04-14] MEDS: LOSARTAN 50 MG TAB PO SCH (08:50)
[2021-04-14 09:34] LABS: African American GFR (CKD) 6 (>60 ml/min/1.73 sqM); Anion Gap 16 mmol/L; Blood Urea Nitrogen 59 mg/dL (7-17); Calcium 8.5 mg/dL (8.4-10.2); Carbon Dioxide 19 mmol/L (22-30); Chloride 96 mmol/L (98-107); Glucose 462 mg/dL (74-99); Non-African American GFR(CKD) 5 (>60 ml/min/1.73 sqM); Sodium 131 mmol/L (137-145)
[2021-04-14] MEDS ORDERED: INSULIN REGULAR 100 UNIT/ML VIAL (IV) IV ONE (09:43)
[2021-04-14] MEDS ORDERED: DEXTROSE 50% SYRINGE 50 ML IVP STA (09:43)
[2021-04-14] MEDS: cloNIDine HCL 0.1 MG TAB PO SCH ×3 (10:00→21:39)
[2021-04-14] MEDS: CHOLESTYRAMINE (WITH SUGAR) 4 GM PACKET PO SCH ×2 (10:04→18:06)
[2021-04-14] MEDS: amLODIPine 10 MG TAB PO SCH (10:35)
[2021-04-14 12:06] LABS: Glucose,Whole Blood 452 mg/dL (75-99)
[2021-04-14] MEDS: INSULIN ASPART (NovoLOG) 100 UNIT/ML VIAL SQ SCH ×3 (12:54→20:31)
[2021-04-14 15:46] LABS: Glucose,Whole Blood 27 mg/dL (75-99)
[2021-04-14 16:11] LABS: Glucose,Whole Blood 63 mg/dL (75-99)
[2021-04-14 16:34] LABS: Glucose,Whole Blood 79 mg/dL (75-99)
[2021-04-14 17:36] LABS: Glucose,Whole Blood 92 mg/dL (75-99)
--- NOTE | 2021-04-14 18:10 | PN ---
PROGRESS NOTE Patient is seen for followup for end-stage renal disease. She is currently comfortable. Patient's potassium was elevated today at 6.0. Her blood pressure had initially improved post dialysis and now increased back up to around 230 and 209 systolic. Patient responds very well to ultrafiltration. She is scheduled for hemodialysis again today and we are planning to remove about 4 to 4.5 L as tolerated today. On examination today, blood pressure was 204/92, heart rate 78 per minute. Repeat blood pressure later on around 3:00 was 128/77, heart rate 69 per minute. She is afebrile. EXAMINATION OF THE HEART: S1 and S2. EXAMINATION OF LUNGS: Bilateral breath sounds are heard. Abdomen is soft, non-tender. Examination of lower extremities shows no significant edema. BANK REPRESENTATIVE EXAM: Grossly intact. Labs show sodium 131, potassium 6.0, BUN 59, creatinine 9.0. ASSESSMENT: 1. End-stage renal disease. Patient has been on dialysis for about a year now, maintained on a Monday, Monday, Monday schedule. 2. Volume overload. Patient is status post 5 L of fluid removal yesterday. We will plan for another 4 to 5 L again today. 3. Hypertension, volume-sensitive, improved significantly with ultrafiltration. Cozaar was discontinued secondary to hyperkalemia and patient is back on her calcium channel blockers along with clonidine, hydralazine and Coreg. 4. Chronic kidney disease mineral bone disorder, maintained on PhosLo. PLAN: Increase UF again today as tolerated. Patient will be dialyzed soon. MMODL / IJN: [id number] /
[2021-04-14 20:29] LABS: Glucose,Whole Blood 137 mg/dL (75-99)
[2021-04-14] MEDS: ISOSORBIDE MONONITRATE ER 30 MG TAB.ER.24H PO SCH (20:33)
[2021-04-14] MEDS: ESCITALOPRAM 10 MG TAB PO SCH (20:33)
[2021-04-15 01:48] LABS: Glucose,Whole Blood 281 mg/dL (75-99)
--- NOTE | 2021-04-15 01:57 | P.PN ---
Subjective Progress Note Date: 04/14/21 This is a pleasant 30-year-old female who was recently admitted for a possible syncopal episode and patient was found to be hypoglycemic. Patient was brought to the emergency department as she was scheduled to go to hemodialysis and felt lightheaded and dizzy and passed out. Patient was recently admitted for possible aspiration pneumonia with missed hemodialysis and fluid overload and also multiple episodes of hyper and hypoglycemia. Patient is continued on long- acting of 22 units daily and patient states she strictly carb counts in the outpatient setting. [place] and is working on establishing with primary care provider Dr. Edith Cruz along with continuing hemodialysis and was recently referred to endocrine Dr. Coon but was just discharged from the hospital on Monday. Patient does have a past medical history of CVA/TIA, end-stage renal disease on hemodialysis, hypertension, chronic kidney disease, diabetes mellitus type 1. On admission to the ER she was given an amp of glucose and became more responsive and was admitted for further evaluation. Consulted nephrology for hemodialysis as patient missed dialysis yesterday. On admission patient's labs showed a white blood count of 6.6, hemoglobin of 10, platelet count of 223, sodium 139, p otassium 5.2, BUN 73, creatinine 11.24, glucose 36, magnesium 2.3, troponin 0.024 and COVID-19 was negative. Chest x-ray shows some changes that could correlate with CHF with significant improvement of the patchy infiltrate is presented previously and hard size is mildly prominent. EKG showed normal sinus rhythm with a possible left atrial enlargement, T wave abnormality consider lateral ischemia with prolonged QT of 476/521. Recommend continue with Accu- Cheks before meals and at bedtime and patient was started on a D5 with normal saline. 04/14/2021 Patient is seen and evaluated this morning and blood sugars are now elevated and over 400. D5 normal saline discontinued and patient resumed on home dose of long acting 22 units and will add sliding scale. Patient also continues with hyper tension and multiple adjustments have been made to blood pressure medications. Will discontinue Losartan and start Norvasc, increase the clonidine to 0.3mg TID and increase hydralazine. Nephrology following and ordered dialysis for today as patient continues with volume overload and is maintained on Mon/Mon/Mon and will continue. Patient tolerating diet and no reports of nausea, vomiting, or diarr hea. Patient reports to feeling cold. Patient is afebrile. Labs: Sodium is 131, potassium is 6.0, BUN is 59, and creatinine is 9.04 Review of systems: Constitutional: No reports of fatigue, fevers, reports feeling cold Respiratory: No reports of shortness of breath or cough Cardiac: Reports some chest pressure from her high blood pressure, denies palpitations Neuro: No reports of weakness or numbness GI: no reports of nausea or vomiting Medications have been reviewed. Active Medications Acetaminophen (Acetaminophen Tab 325 Mg Tab) 650 mg PO Q6HR PRN PRN Reason: Fever and/ or Pain Last Admin: 04/14/21 22:46 Dose: 650 mg Documented by: Amlodipine Besylate (Amlodipine 10 Mg Tab) 10 mg PO DAILY [facility] Last Admin: 04/14/21 10:35 Dose: 10 mg Documented by: Aspirin (Aspirin 81 Mg) 81 mg PO DAILY [facility] Last Admin: 04/14/21 08:50 Dose: 81 mg Documented by: Calcium Acetate (Calcium Acetate 667 Mg Tab) 1,334 mg PO TID-W/MEALS [facility] Last Admin: 04/14/21 16:58 Dose: 1,334 mg Documented by: Carvedilol (Carvedilol 12.5 Mg Tab) 25 mg PO BID-W/MEALS [facility] Last Admin: 04/14/21 17:00 Dose: 25 mg Documented by: Cholestyramine Resin (Cholestyramine (With Sugar) 4 Gm Packet) 4 gm PO BID@1000,1800 [facility] Last Admin: 04/14/21 18:06 Dose: Not Given Documented by: Clonidine (Clonidine Hcl 0.1 Mg Tab) 0.3 mg PO TID [facility] Last Admin: 04/14/21 21:39 Dose: 0.3 mg Documented by: Darbepoetin Tate (Darbepoetin Tate 40 Mcg/0.4 Ml Syringe) 40 mcg SQ Q7D [facility] Ergocalciferol (Ergocalciferol 1,250 Mcg (50,000 Iu) Capsule) 1,250 mcg PO WEEKLY [facility] Escitalopram Oxalate (Escitalopram 10 Mg Tab) 10 mg PO HS [facility] Last Admin: 04/14/21 20:33 Dose: 10 mg Documented by: Furosemide (Furosemide 40 Mg Tab) 40 mg PO BID@0900,1600 [facility] Last Admin: 04/14/21 16:58 Dose: 40 mg Documented by: Guaifenesin/Dextromethorphan (Guaifenesin-Dm 100-10mg/5ml 10 Ml Cup) 10 ml PO Q6HR PRN PRN Reason: Cough Hydralazine HCl (Hydralazine Hcl 50 Mg Tab) 100 mg PO TID [facility] Last Admin: 04/14/21 21:39 Dose: 100 mg Documented by: Insulin Aspart (Insulin Aspart (Novolog) 100 Unit/Ml Vial) 0 unit SQ ACHS [facility]; Protocol Last Admin: 04/14/21 20:31 Dose: Not Given Documented by: Insulin Detemir (Insulin Detemir (Levemir) 100 Unit/Ml Syr) 22 unit SQ DAILY@0700 [facility] Last Admin: 04/14/21 08:49 Dose: 22 unit Documented by: Isosorbide Mononitrate (Isosorbide Mononitrate Er 30 Mg Tab.Er.24h) 30 mg PO HS [facility] Last Admin: 04/14/21 20:33 Dose: 30 mg Documented by: Naloxone HCl (Naloxone 0.4 Mg/Ml 1 Ml Vial) 0.2 mg IV Q2M PRN PRN Reason: Opioid Reversal Pantoprazole Sodium (Pantoprazole 40 Mg Tablet) 40 mg PO DAILY [facility] Last Admin: 04/14/21 08:50 Dose: 40 mg Documented by: Spironolactone (Spironolactone 25 Mg Tab) 25 mg PO DAILY [facility] Last Admin: 04/14/21 08:50 Dose: 25 mg Documented by: Physical Exam: Gen: This is a 30-year-old female awake, alert and oriented 3, thin built, in no acute distress. HEENT: Head is atraumatic, normocephalic. Pupils equal, round. Sclerae is anicteric. NECK: Supple. No JVD. No lymphadenopathy. No thyromegaly. LUNGS: Clear to auscultation. No wheezes or rhonchi. No intercostal retractions. HEART: Regular rate and rhythm. No murmur. ABDOMEN: Soft. Bowel sounds are present. No masses. No tenderness. EXTREMITIES: No pedal edema. No calf tenderness. NEUROLOGICAL: Patient is awake, alert and oriented x3. Cranial nerves 2 through 12 are grossly intact. Assessment: Hypoglycemia Possible syncope most likely hypoglycemic event as patient responded to an amp of glucose Diabetes mellitus type 1, uncontrolled with hypo-and hyperglycemia hypervolemic hyponatremia, continue with dialysis and repeat labs. encouraged oral intake hyperkalemia Chronic kidney disease End-stage renal disease, maintained on hemodialysis Monday/Monday/Monday Acute on chronic diastolic congestive heart failure, not in acute exacerbation [place] history of CVA/TIA Noncompliance with medications and treatments Recent hospital admission for acute hypoxic respiratory failure, possibly secondary to aspiration pneumonia Hypertension DVT prophylaxis GI prophylaxis Full code Plan: Blood sugars have now been elevated and extremely variable and being closely monitored and recommend continue with Accu-Cheks before meals and at bedtime and as needed. Patient was maintained on IV dextrose 5% in normal saline and will discontinue as blood sugar over 400 today and will resume 22units of long acting and use sliding scale as well. Encouraged oral intake. Blood pressures continue to be elevated and medications have been adjusted. Patient continues with volume overload and had dialysis yesterday and will again today with ne phrology following. Potassium elevated today and will correct and will repeat labs and monitor closely. If blood sugars improve and blood pressure more manageable will discharge in 24-48 hours. Objective - Vital Signs Vital signs: Vital Signs Temp 97.5 F L 04/14/21 07:00 Pulse 75 04/14/21 07:00 Resp 16 04/14/21 07:00 BP 231/115 04/14/21 07:00 Pulse Ox 93 L 04/14/21 07:00 Intake & Output 04/13/21 04/14/21 04/14/21 18:59 06:59 18:59 Intake Total 5000 Output Total 300 Balance 4700 Intake: Hemodialysis 5000 Output: Hemodialysis 300 Other: Voiding Method Toilet Toilet # Voids 1 1 - Labs CBC & Chem 7: 04/12/21 15:58 04/14/21 08:51 Labs: Abnormal Lab Results - Last 24 Hours (Table) 04/13/21 04/13/21 04/13/21 Range/Units 12:11 12:39 17:51 POC Glucose (mg/dL) 113 H 109 H 201 H (75-99) mg/dL 04/13/21 04/14/21 04/14/21 Range/Units 20:16 00:24 06:00 POC Glucose (mg/dL) 288 H 315 H 375 H (75-99) mg/dL 04/14/21 Range/Units 07:49 POC Glucose (mg/dL) 406 H (75-99) mg/dL
[2021-04-15 05:48] LABS: Glucose,Whole Blood 146 mg/dL (75-99)
[2021-04-15 06:25] LABS: Anisocytosis Slight; Basophils # (A) 0.1 k/uL (0-0.2); Basophils % (A) 1 %; Eosinophils # (A) 0.3 k/uL (0-0.7); Eosinophils % (A) 7 %; HGB 8.8 gm/dL (11.4-16.0); Lymphocytes # (A) 1.1 k/uL (1.0-4.8); Lymphocytes % (A) 24 %; MCH 30.7 pg (25.0-35.0); MCHC 33.8 g/dL (31.0-37.0); MCV 90.9 fL (80.0-100.0); Mean Platelet Volume 9.9; Monocytes # (A) 0.3 k/uL (0-1.0); Monocytes % (A) 6 %; Neutrophils # (A) 2.7 k/uL (1.3-7.7); Neutrophils % (A) 60 %; Platelet Count 144 k/uL (150-450); RBC 2.86 m/uL (3.80-5.40); RDW 16.7 % (11.5-15.5); WBC 4.5 k/uL (3.8-10.6)
[2021-04-15 06:37] LABS: African American GFR (CKD) 10 (>60 ml/min/1.73 sqM); Anion Gap 11 mmol/L; Blood Urea Nitrogen 44 mg/dL (7-17); Calcium 8.4 mg/dL (8.4-10.2); Carbon Dioxide 26 mmol/L (22-30); Chloride 96 mmol/L (98-107); Glucose 144 mg/dL (74-99); Non-African American GFR(CKD) 8 (>60 ml/min/1.73 sqM); Potassium 5.8 mmol/L (3.5-5.1); Sodium 133 mmol/L (137-145)
[2021-04-15 07:45] LABS: Glucose,Whole Blood 173 mg/dL (75-99)
[2021-04-15] MEDS: CALCIUM ACETATE 667 MG TAB PO SCH ×2 (07:57→14:24)
[2021-04-15] MEDS: INSULIN DETEMIR (LEVEMIR) 100 UNIT/ML SYR SQ SCH (07:57)
[2021-04-15] MEDS: carvediloL 12.5 MG TAB PO SCH (07:58)
[2021-04-15] MEDS: INSULIN ASPART (NovoLOG) 100 UNIT/ML VIAL SQ SCH ×2 (07:58→12:47)
[2021-04-15] MEDS: amLODIPine 10 MG TAB PO SCH (07:59)
[2021-04-15] MEDS: SPIRONOLACTONE 25 MG TAB PO SCH (08:00)
[2021-04-15] MEDS: hydrALAZINE HCL 50 MG TAB PO SCH (08:00)
[2021-04-15] MEDS: cloNIDine HCL 0.1 MG TAB PO SCH (08:01)
[2021-04-15] MEDS: FUROSEMIDE 40 MG TAB PO SCH (08:01)
[2021-04-15] MEDS: PANTOPRAZOLE 40 MG TABLET PO SCH (08:01)
[2021-04-15] MEDS: ASPIRIN 81 MG PO SCH (08:01)
[2021-04-15 08:12] VITALS: BP 204/100; PULSE 71; RESP 18; TEMP 97.6
[2021-04-15] MEDS ORDERED: INSULIN REGULAR 100 UNIT/ML VIAL (IV) IV ONE (09:24)
[2021-04-15] MEDS ORDERED: DEXTROSE 50% SYRINGE 50 ML IVP STA (09:24)
[2021-04-15] MEDS: CHOLESTYRAMINE (WITH SUGAR) 4 GM PACKET PO SCH (10:20)
[2021-04-15 12:00] LABS: Glucose,Whole Blood 31 mg/dL (75-99)
[2021-04-15 12:21] LABS: Glucose,Whole Blood 49 mg/dL (75-99)
[2021-04-15 12:37] LABS: Glucose,Whole Blood 84 mg/dL (75-99)
[2021-04-15] MEDS ORDERED: hydrALAZINE HCL 50 MG TAB PO SCH (16:00)
--- NOTE | 2021-04-15 17:42 | PN ---
PROGRESS NOTE Patient is seen for followup for end-stage renal disease. Patient's blood pressure remains significantly elevated. She was dialyzed yesterday and her pressure had improved. I did review her medications as outpatient and patient was maintained on irbesartan and she takes Lokelma for the hyperkalemia. Her hydralazine dose is usually 125 mg t.i.d. and this will be adjusted. She has her medications at home and patient will be dialyzed tomorrow. On examination today, blood pressure was 204/100, heart rate 71 per minute. She is afebrile. Examination of lower extremities shows no evidence of edema SKIP MINER exam grossly intact. Labs show potassium 5.8 from this morning, BUN 44, creatinine 6.1. ASSESSMENT: 1. End-stage renal disease, on hemodialysis on a Monday, Monday, Monday schedule. Patient will be dialyzed tomorrow. 2. Chronic hyperkalemia in a patient with uncontrolled hypertension, maintained on angiotensin receptor blockers, which she needs, and she is maintained on Lokelma. 3. Uncontrolled hypertension, very responsive to ultrafiltration. We will plan for another 4 to 4.5 liters tomorrow. Patient will resume her home medications. Her hydralazine will be increased to 125 mg t.i.d. and she can resume the irbesartan that she takes at home. 4. Hypoglycemia, now resolved, although patient did have low readings again at 31 and 49 later on this afternoon. PLAN: Hemodialysis in a.m. Increase hydralazine to 125 mg t.i.d. Will resume irbesartan, which patient takes at home. MMODL / IJN: [id number] /
[2021-04-16] MEDS ORDERED: SPIRONOLACTONE 25 MG TAB PO SCH (09:00)
--- NOTE | 2021-04-16 09:23 | P.DS ---
Providers Date of admission: 04/14/21 12:07 Expected date of discharge: 04/15/21 Attending physician: Cecilia Sheets Consults: 04/13/21 09:59 Consult Physician Stat Consulting Provider: Fox Chase Consult Reason/Comments: ESRD Do you want consulting provider notified?: Yes Primary care physician: Edith Cruz Hospital Course: Final diagnosis Hypoglycemia Possible syncope most likely hypoglycemic event as patient responded to an amp of glucose Diabetes mellitus type 1, uncontrolled with hypo-and hyperglycemia hypervolemic hyponatremia, continue with dialysis and repeat labs. encouraged oral intake hyperkalemia secondary to end-stage renal disease and use of lisinopril and Aldactone which will be discontinued Possible diastolic dysfunction congestive heart failure with preserved EF with pulmonary hypertension noted on echo and mild concentric ventricular hypertrophy with LV systolic function normal and EF 55-60% Chronic kidney disease End-stage renal disease, maintained on hemodialysis Monday/Monday/Monday history of CVA/TIA Noncompliance with medications and treatments Recent hospital admission for acute hypoxic respiratory failure, possibly s econdary to aspiration pneumonia Hypertension DVT prophylaxis GI prophylaxis Full code Discharge disposition Patient is being discharged in a stable condition with guarded prognosis to home. Patient will follow-up with Dr. Cruz in the outpatient setting upon discharge. Patient is to continue with hemodialysis as scheduled. Total time taken is greater than 35 minutes. Hospital course This is a pleasant 30-year-old female who was recently admitted for a possible syncopal episode and patient was found to be hypoglycemic. Patient was brought to the emergency department as she was scheduled to go to hemodialysis and felt lightheaded and dizzy and passed out. Patient was recently admitted for possible aspiration pneumonia with missed hemodialysis and fluid overload and also multiple episodes of hyper and hypoglycemia. Patient is continued on long- acting of 22 units daily and patient states she strictly carb counts in the outpatient setting. [place] and is working on establishing with primary care provider Dr. Edith Cruz along with continuing hemodialysis and was recently referred to endocrine Dr. Miller but was just discharged from the hospital on Monday. Patient does have a past medical history of CVA/TIA, end-stage renal disease on hemodialysis, hypertension, chronic kidney disease, diabetes mellitus type 1. On admission to the ER she was given an amp of glucose and became more responsive and was admitted for further evaluation. Consulted nephrology for hemodialysis as patient missed dialysis yesterday. On admission patient's labs showed a white blood count of 6.6, hemoglobin of 10, platelet count of 223, sodium 139, potassium 5.2, BUN 73, creatinine 11.24, glucose 36, magnesium 2.3, troponin 0.024 and COVID-19 was negative. Chest x-ray shows some changes that could correlate with CHF with significant improvement of the patchy infiltrate is presented previously and hard size is mildly prominent. EKG showed normal sinus rhythm with a possible left atrial enlargement, T wave abnormality consider lateral ischemia with prolonged QT of 476/521. Recommend continue with Accu- Cheks before meals and at bedtime and patient was started on a D5 with normal saline. 04/14/2021 Patient is seen and evaluated this morning and blood sugars are now elevated and over 400. D5 normal saline discontinued and patient resumed on home dose of long acting 22 units and will add sliding scale. Patient also continues with hypertension and multiple adjustments have been made to blood pressure medications. Will discontinue Losartan and start Norvasc, increase the clonidine to 0.3mg TID and increase hydralazine. Nephrology following and ordered dialysis for today as patient continues with volume overload and is maintained on Mon/Mon/Mon and will continue. Patient tolerating diet and no reports of nausea, vomiting, or diarrhea. Patient reports to feeling cold. Patient is afebrile. 04/15/2021 She is seen in follow-up this morning feeling better blood pressure elevated and maintained on hydralazine, Catapres, Lasix, Norvasc and will continue. Aldactone discontinued as patient is end-stage renal disease with hyperkalemia. Patient will continue with hemodialysis Monday/Monday/Monday and has a ride an appointment tomorrow. Patient also instructed and encouraged to closely monitor blood sugars and a glucagon kit was provided as patient continues to have elevated and extremely low blood sugars. Strongly encourage the patient to follow up with endocrine on discharge and patient has appointment to establish with Dr. Cruz on Monday morning. Patient will have hemodialysis on Monday as well. Currently no reports of chest pain, shortness of breath, or palpitations. Patient is afebrile. No reports of nausea or vomiting and patient is tolerating diet. Patient is asking if she can go home today. Patient will be discharged home. Guarded prognosis. Gen: This is a 30-year-old female awake, alert and oriented 3, thin built, in no acute distress. HEENT: Head is atraumatic, normocephalic. Pupils equal, round. Sclerae is anicteric. NECK: Supple. No JVD. No lymphadenopathy. No thyromegaly. LUNGS: Clear to auscultation. No wheezes or rhonchi. No intercostal retractions. HEART: Regular rate and rhythm. No murmur. ABDOMEN: Soft. Bowel sounds are present. No masses. No tenderness. EXTREMITIES: No pedal edema. No calf tenderness. NEUROLOGICAL: Patient is awake, alert and oriented x3. Cranial nerves 2 through 12 are grossly intact. Please refer to medication reconciliation sheet for a list of medications. Patient Condition at Discharge: Fair Plan - Discharge Summary Discharge Rx Participant: No New Discharge Prescriptions: New hydrALAZINE HCL [Apresoline] 125 mg PO TID #90 tab cloNIDine HCL [Catapres] 0.3 mg PO TID 30 Days #90 tab amLODIPine [Norvasc] 10 mg PO DAILY 30 Days #30 tab Glucagon Emergency Kit 1 mg IM ONCE #1 kit Continue Pantoprazole Sodium [Protonix] 40 mg PO DAILY Calcium Acetate 668mg 1,336 mg PO TID-W/MEALS Escitalopram [Lexapro] 10 mg PO HS Aspirin EC [Ecotrin Low Dose] 81 mg PO DAILY INSULIN LISPRO (HumaLOG) [humaLOG] See Protocol SQ AC-TID Darbepoetin Tate [Aranesp] 40 mcg SQ Q7D each Insulin Glargine [Lantus Vial] 22 unit SQ DAILY Isosorbide Mononitrate ER [Imdur] 30 mg PO HS Furosemide [Lasix] 40 mg PO BID Ergocalciferol (Vitamin D2) [Drisdol (50,000 Iu)] 1,250 mcg PO WEEKLY Carvedilol [Coreg] 25 mg PO BID guaiFENesin-DM 100-10MG/5ML [Robitussin DM] 10 ml PO Q6HR PRN #100 ml PRN Reason: Cough Acetaminophen Tab [Tylenol] 650 mg PO Q6HR PRN #30 tab PRN Reason: Fever And/ Or Pain Discontinued hydrALAZINE HCL [Apresoline] 25 mg PO TID cloNIDine HCL [Catapres] 0.2 mg PO TID 30 Days #180 tab Spironolactone [Aldactone] 25 mg PO DAILY 30 Days #30 tab Losartan [Cozaar] 100 mg PO DAILY 30 Days #60 tab Cholestyramine (with Sugar) [Questran Packet] 4 gm PO BID@1000,1800 #20 packet Amoxic-Pot Clav 500-125 mg [Augmentin 500-125 mg] 1 tab PO BID Discharge Medication List Aspirin EC [Ecotrin Low Dose] 81 mg PO DAILY 04/03/21 [History] Calcium Acetate 668mg 1,336 mg PO TID-W/MEALS 04/03/21 [History] Carvedilol [Coreg] 25 mg PO BID 04/03/21 [History] Ergocalciferol (Vitamin D2) [Drisdol (50,000 Iu)] 1,250 mcg PO WEEKLY 04/03/21 [History] Escitalopram [Lexapro] 10 mg PO HS 04/03/21 [History] Furosemide [Lasix] 40 mg PO BID 04/03/21 [History] INSULIN LISPRO (HumaLOG) [humaLOG] See Protocol SQ AC-TID 04/03/21 [History] Insulin Glargine [Lantus Vial] 22 unit SQ DAILY 04/03/21 [History] Isosorbide Mononitrate ER [Imdur] 30 mg PO HS 04/03/21 [History] Pantoprazole Sodium [Protonix] 40 mg PO DAILY 04/03/21 [History] Acetaminophen Tab [Tylenol] 650 mg PO Q6HR PRN #30 tab 04/09/21 [Rx] Darbepoetin Tate [Aranesp] 40 mcg SQ Q7D each 04/09/21 [Rx] guaiFENesin-DM 100-10MG/5ML [Robitussin DM] 10 ml PO Q6HR PRN #100 ml 04/09/21 [Rx] Glucagon Emergency Kit 1 mg IM ONCE #1 kit 04/15/21 [Rx] amLODIPine [Norvasc] 10 mg PO DAILY 30 Days #30 tab 04/15/21 [Rx] cloNIDine HCL [Catapres] 0.3 mg PO TID 30 Days #90 tab 04/15/21 [Rx] hydrALAZINE HCL [Apresoline] 125 mg PO TID #90 tab 04/15/21 [Rx] Follow up Appointment(s)/Referral(s): Aurelia Poe MD [STAFF PHYSICIAN] - 1 Week (PLEASE CALL AND SCHEDULE APPOINTMENT, OFFICE IS NOT ABLE TO ANSWER PHONE AT THE TIME OF YOUR DISCHARGE.) Edith Cruz MD [Primary Care Provider] - 04/16/21 11:30 am (YOU WILL NEED TO HAVE YOUR PRIMARY PHYSICIAN MAKE A REFERRAL FOR YOU TO BE SEEN BY DR. MILLER.) Jon Miller MD [REFERRING] - 1 Week (YOU CAN BE SCHEDULED AN APPOINTMENT ONCE YOUR PRIMARY CARE PHYSICIAN MAKES A REFERRAL FOR YOU TO SEE DR. MILLER.) Ambulatory/Diagnostic Orders: Basic Metabolic Panel [LAB.AMB] Time Frame: 2 Days, Location: None Selected Patient Instructions/Handouts: Hypoglycemia in a Person with Diabetes (DC), Hyperkalemia (DC), Chronic Hypertension (DC), Diabetic Hyperglycemia (DC), Hemodialysis (DC) Activity/Diet/Wound Care/Special Instructions: Activity Limited until follow-up continue taking medications as prescribed Monitor blood pressure closely Repeat labs tomorrow to monitor potassium Continue dialysis Monday/Monday/Monday Establish and follow up with primary care provider Follow-up with nephrology outpatient in one week Follow-up with endocrine outpatient continue monitoring blood sugars closely Continue with consistent carb diabetic diet Discharge Disposition: HOME SELF-CARE
[2021-04-17] MEDS ORDERED: DARBEPOETIN ALFA 40 MCG/0.4 ML SYRINGE SQ SCH (12:00)
[2021-04-19] MEDS ORDERED: ERGOCALCIFEROL 1,250 MCG (50,000 IU) CAPSULE PO SCH (09:00)
== END 2021-04-15 14:22 | disposition home or self-care (01) | DRG 637 ==
LOC: EC 14:34 → 6NMEDSUR 19:05 → OBSVTOIN 04-14 12:07
PROVIDERS: ADMIT Internal Medicine; ATTEND Internal Medicine
DX: E10.649 Type 1 diabetes mellitus with hypoglycemia without coma (principal); I50.33 Acute on chronic diastolic (congestive) heart failure; E87.1 Hypo-osmolality and hyponatremia; I13.2 Hypertensive heart and chronic kidney disease with heart failure and with stage 5 chronic kidney disease, or end stage renal disease; E87.5 Hyperkalemia; N18.6 End stage renal disease; E10.22 Type 1 diabetes mellitus with diabetic chronic kidney disease; E87.70 Fluid overload, unspecified; I45.81 Long QT syndrome; Z20.822 Contact with and (suspected) exposure to COVID-19; E10.65 Type 1 diabetes mellitus with hyperglycemia; M89.9 Disorder of bone, unspecified; Z79.4 Long term (current) use of insulin; Z79.82 Long term (current) use of aspirin; Z79.899 Other long term (current) drug therapy; Z86.73 Personal history of transient ischemic attack (TIA), and cerebral infarction without residual deficits; Z91.19 Patient's noncompliance with other medical treatment and regimen; Z91.14 Patient's other noncompliance with medication regimen; Z99.2 Dependence on renal dialysis; Z87.01 Personal history of pneumonia (recurrent); Z91.041 Radiographic dye allergy status
CPT/HCPCS: 36415; 71045; 80048; 80053; 83735; 84484; 85025; 85610; 85730; 87635; 90935; 93005; 96374; 96375; 99285

== ENCOUNTER 2021-04-16 18:52 | Emergency (ER) | payer MEDICARE ==
[2021-04-16 19:13] VITALS: BP 230/116; PULSE 84; RESP 20; TEMP 98.1
--- NOTE | 2021-04-16 19:58 | ED ---
General Adult HPI - General Chief complaint: Dizziness Stated complaint: Chest Pain Time Seen by Provider: 04/16/21 19:15 Source: patient, EMS Mode of arrival: EMS - History of Present Illness Initial comments: Dictation was produced using [employer] dictation software. please excuse any grammatical, word or spelling errors. Chief Complaint: 30-year-old female past medical history of end-stage renal disease presents to the emergency department for hypertension History of Present Illness: And is a 30-year-old female she has multiple comorbidities. Patient has end-stage renal disease from hypertension. She went to dialysis today received a treatment and had elevated blood pressures with systolics measuring well over 200/100. Patient just moved here from [place] a couple months ago.. She just became establish with her primary care doctor. Patient has history of malignant hypertension. She takes multiple blood pressure medications and high doses. She had normal blood pressure this morning. She had normal blood pressure prior to dialysis. She had elevated blood pressures after dialysis. Patient reports that she was has elevated blood pressures after dialysis. She typically gets sent home and takes her nighttime blood pressure meds with improvement. Patient has some mild chest discomfort. She refuses to describe it as pain. States that this is a normal occurrence when her blood pressure is elevated. She states that she suffers from ESRD due to preeclampsia with all of her children. Patient also has diabetes. The ROS documented in this emergency department record has been reviewed and confirmed by me. Those systems with pertinent positive or negative responses have been documented in the HPI. All other systems are other negative and/or noncontributory. PHYSICAL EXAM: General Impression: Alert and oriented x3, not in acute distress HEENT: Normocephalic atraumatic, extra-ocular movements intact, pupils equal and reactive to light bilaterally, mucous membranes moist. Cardiovascular: Heart regular rate and rhythm Chest: Able to complete full sentences, no retractions, no tachypnea Abdomen: abdomen soft, non-tender, non-distended, no organomegaly Musculoskeletal: Pulses present and equal in all extremities, no peripheral edema Motor: no focal deficits noted Neurological: CN II-XII grossly intact, no focal motor or sensory deficits noted Skin: Intact with no visualized rashes Psych: Normal affect and mood ED course: 30-year-old female presents to the emergency department for malignant hypertension. She reports that this is atypical of occurrence. She gets blood pressures over 200/100 after dialysis almost all the time. She states that she was course in by dialysis team to come to the emergency room. She denies any headache. No shortness of breath no strokelike symptoms. Patient does not want to be here in emergency department. She is willing to sign out AGAINST MEDICAL ADVICE. Grandparents are at the bedside. They wanted no patient's disposition is so that it have to drive at night where visibility is decreased. Patient does not want to be in the emergency department any longer and wants to go home with her grandparents. She states she'll go home and take her medications. Patient isn't on large doses of blood pressure medications including large doses of hydralazine, Catapres, amlodipine and Coreg. Patient understands the risks of signing out AGAINST MEDICAL ADVICE given that we don't have an complete workup. Blood pressure still significantly elevated. Chart review shows that patient was just discharged from the hospital yesterday for same thing. EKG interpretation: Ventricular rate 82, normal sinus rhythm,. Interval and 66, QRS 82, QTC 495. No ME prolongation, no QTC prolongation, no ST or T-wave changes noted. EKG compared to 04/12/2021 showing no changes. Overall, this EKG is unremarkable - Related Data Home Medications Medication Instructions Recorded Confirmed Aspirin EC [Ecotrin Low Dose] 81 mg PO DAILY 04/03/21 04/12/21 Calcium Acetate 668mg 1,336 mg PO TID-W/MEALS 04/03/21 04/12/21 Carvedilol [Coreg] 25 mg PO BID 04/03/21 04/12/21 Ergocalciferol (Vitamin D2) 1,250 mcg PO WEEKLY 04/03/21 04/12/21 [Drisdol (50,000 Iu)] Escitalopram [Lexapro] 10 mg PO HS 04/03/21 04/12/21 Furosemide [Lasix] 40 mg PO BID 04/03/21 04/12/21 INSULIN LISPRO (HumaLOG) [humaLOG] See Protocol SQ AC-TID 04/03/21 04/12/21 Insulin Glargine [Lantus Vial] 22 unit SQ DAILY 04/03/21 04/12/21 Isosorbide Mononitrate ER [Imdur] 30 mg PO HS 04/03/21 04/12/21 Pantoprazole Sodium [Protonix] 40 mg PO DAILY 04/03/21 04/12/21 Previous Rx's Medication Instructions Recorded Acetaminophen Tab [Tylenol] 650 mg PO Q6HR PRN #30 tab 04/09/21 Darbepoetin Tate [Aranesp] 40 mcg SQ Q7D each 04/09/21 guaiFENesin-DM 100-10MG/5ML 10 ml PO Q6HR PRN #100 ml 04/09/21 [Robitussin DM] Glucagon Emergency Kit 1 mg IM ONCE #1 kit 04/15/21 amLODIPine [Norvasc] 10 mg PO DAILY 30 Days #30 tab 04/15/21 cloNIDine HCL [Catapres] 0.3 mg PO TID 30 Days #90 tab 04/15/21 hydrALAZINE HCL [Apresoline] 125 mg PO TID #90 tab 04/15/21 Allergies Allergy/AdvReac Type Severity Reaction Status Date / Time iodine Allergy Anaphylaxis Verified 04/12/21 16:11 Review of Systems ROS Statement: Those systems with pertinent positive or pertinent negative responses have been documented in the HPI. ROS Other: All systems not noted in ROS Statement are negative. Past Medical History Past Medical History: CVA/TIA, Dialysis, Hypertension Additional Past Medical History / Comment(s): Kidney disease History of Any Multi-Drug Resistant Organisms: None Reported Past Surgical History: Appendectomy, Section, Cholecystectomy Additional Past Surgical History / Comment(s): fistula left arm Past Anesthesia/Blood Transfusion Reactions: No Reported Reaction Past Psychological History: No Psychological Hx Reported Smoking Status: Never smoker Past Alcohol Use History: None Reported Past Drug Use History: None Reported - Past Family History Mother Family Medical History: Cancer, Hypertension Additional Family Medical History / Comment(s): Thyroid cancer, bipolar Father Additional Family Medical History / Comment(s): Epilepsy Course Vital Signs 04/16/21 19:08 Temperature 98.1 F Pulse Rate 84 Respiratory 20 Rate Blood Pressure 230/116 Disposition Clinical Impression: Hypertension Disposition: Left Against Medical Advice Condition: Fair Instructions (If sedation given, give patient instructions): Hypertension (ED) Referrals: Edith Cruz MD [Primary Care Provider] - 1-2 days
== END 2021-04-16 21:00 | disposition left against medical advice (07) ==
LOC: EC 18:52
DX: I12.0 Hypertensive chronic kidney disease with stage 5 chronic kidney disease or end stage renal disease (principal); N18.6 End stage renal disease; Z79.82 Long term (current) use of aspirin; Z79.4 Long term (current) use of insulin; Z86.73 Personal history of transient ischemic attack (TIA), and cerebral infarction without residual deficits; Z99.2 Dependence on renal dialysis; Z90.49 Acquired absence of other specified parts of digestive tract
CPT/HCPCS: 93005; 99283

== ENCOUNTER 2021-04-17 09:46 | Emergency (ER) | payer MEDICARE ==
[2021-04-17 09:51] VITALS: TEMP 97.9
[2021-04-17 10:26] LABS: Anisocytosis Slight; Basophils # (A) 0.1 k/uL (0-0.2); Basophils % (A) 1 %; Eosinophils # (A) 0.3 k/uL (0-0.7); Eosinophils % (A) 5 %; HCT 25.5 % (34.0-46.0); HGB 8.8 gm/dL (11.4-16.0); Lymphocytes # (A) 0.7 k/uL (1.0-4.8); Lymphocytes % (A) 15 %; MCH 30.6 pg (25.0-35.0); MCHC 34.5 g/dL (31.0-37.0); MCV 88.7 fL (80.0-100.0); Mean Platelet Volume 9.2; Monocytes # (A) 0.3 k/uL (0-1.0); Monocytes % (A) 6 %; Neutrophils # (A) 3.3 k/uL (1.3-7.7); Neutrophils % (A) 72 %; Platelet Count 155 k/uL (150-450); Poikilocytosis Slight; RBC 2.88 m/uL (3.80-5.40); RDW 16.2 % (11.5-15.5); WBC 4.6 k/uL (3.8-10.6)
[2021-04-17 10:44] LABS: Calcium 8.3 mg/dL (8.4-10.2); Magnesium 2.1 mg/dL (1.6-2.3); Potassium 4.6 mmol/L (3.5-5.1); Total Bilirubin 0.8 mg/dL (0.2-1.3); Total Protein 6.5 g/dL (6.3-8.2)
[2021-04-17] MEDS ORDERED: hydrALAZINE HCL 20 MG/ML 1 ML VIAL IVP STA (10:51)
--- NOTE | 2021-04-17 12:04 | ED ---
General Adult HPI - General Chief complaint: Recheck/Abnormal Lab/Rx Stated complaint: Abnormal labs Time Seen by Provider: 04/17/21 10:04 Source: patient, RN notes reviewed, old records reviewed Mode of arrival: ambulatory Limitations: no limitations - History of Present Illness Initial comments: Patient is a 30-year-old female with past medical history remarkable for ESRD on hemodialysis who presents to the emergency Department after being sent by her PCP for abnormal laboratory studies. Prior to her dialysis run yesterday, labs were drawn and her PCP which were abnormal including a hyperkalemia. They wanted to the emergency department for evaluation. Patient also has a history of chronic hypertension that is difficult to control. She took her normal medications this morning. She states that she typically runs anywhere from 180 systolic to 250 systolic. Her dialysis access is in her left upper extremity. She states she is dialyzed yesterday. She presents for further evaluation. Patient otherwise is a symptomatically this time and denies any headaches, fevers, chills, chest pain, shortness breath, abdominal pain, nausea, vomiting. She has no other acute complaints at this time. - Related Data Home Medications Medication Instructions Recorded Confirmed Aspirin EC [Ecotrin Low Dose] 81 mg PO DAILY 04/03/21 04/17/21 Calcium Acetate 668mg 1,336 mg PO TID-W/MEALS 04/03/21 04/17/21 Carvedilol [Coreg] 25 mg PO BID 04/03/21 04/17/21 Ergocalciferol (Vitamin D2) 1,250 mcg PO Q7D 04/03/21 04/17/21 [Drisdol (50,000 Iu)] Furosemide [Lasix] 40 mg PO BID 04/03/21 04/17/21 INSULIN LISPRO (HumaLOG) [humaLOG] See Protocol SQ AC-TID 04/03/21 04/17/21 Insulin Glargine [Lantus Vial] 22 unit SQ DAILY 04/03/21 04/17/21 Isosorbide Mononitrate ER [Imdur] 30 mg PO HS 04/03/21 04/17/21 Pantoprazole Sodium [Protonix] 40 mg PO DAILY 04/03/21 04/17/21 Escitalopram [Lexapro] 20 mg PO DAILY 04/17/21 04/17/21 Irbesartan [Avapro] 75 mg PO DAILY 04/17/21 04/17/21 hydrALAZINE HCL [Apresoline] 25 mg PO TID 04/17/21 04/17/21 hydrALAZINE HCL [Apresoline] 100 mg PO TID 04/17/21 04/17/21 rOPINIRole HCL [Requip] 0.5 mg PO HS 04/17/21 04/17/21 Previous Rx's Medication Instructions Recorded Acetaminophen Tab [Tylenol] 650 mg PO Q6HR PRN #30 tab 04/09/21 Glucagon Emergency Kit 1 mg IM ONCE #1 kit 04/15/21 amLODIPine [Norvasc] 10 mg PO DAILY 30 Days #30 tab 04/15/21 cloNIDine HCL [Catapres] 0.3 mg PO TID 30 Days #90 tab 04/15/21 Allergies Allergy/AdvReac Type Severity Reaction Status Date / Time Fish Containing Products Allergy Rash/Hives Verified 04/17/21 11:01 [Fish] iodine Allergy Anaphylaxis Verified 04/17/21 11:01 Review of Systems ROS Statement: Those systems with pertinent positive or pertinent negative responses have been documented in the HPI. Review of Systems: CONST: Denies fever EYES: Denies blurry vision ENT: Denies nasal congestion C/V: Denies Chest pain RESP: Denies shortness of breath GI: Denies abdominal pain : Denies dysuria SKIN: Denies rash. MSK: Denies joint pain. NEURO: Denies headache ROS Other: All systems not noted in ROS Statement are negative. Past Medical History Past Medical History: CVA/TIA, Dialysis, Hypertension Additional Past Medical History / Comment(s): Kidney disease History of Any Multi-Drug Resistant Organisms: None Reported Past Surgical History: Appendectomy, Section, Cholecystectomy Additional Past Surgical History / Comment(s): fistula left arm Past Anesthesia/Blood Transfusion Reactions: No Reported Reaction Past Psychological History: No Psychological Hx Reported Smoking Status: Never smoker Past Alcohol Use History: None Reported Past Drug Use History: None Reported - Past Family History Mother Family Medical History: Cancer, Hypertension Additional Family Medical History / Comment(s): Thyroid cancer, bipolar Father Additional Family Medical History / Comment(s): Epilepsy General Exam - General Exam Comments Initial Comments: General: Appears in no acute distress. HEAD: Normal with no signs of head trauma. EYES: PERRLA, EOMI, conjunctiva normal, no discharge. ENT: Hearing grossly intact, normal oropharynx. RESPIRATORY: Clear breath sounds bilaterally. No wheezes, rales, or rhonchi. C/V: Regular rate and rhythm. S1 and S2 auscultated, no edema, peripheral pulses 2+ and intact throughout. Patient's left upper extremity AV fistula has a palpable thrill and audible bruit. Patient is hypertensive. ABD: Abd is soft, nontender, nondistended EXT: Normal range of motion, no obvious deformity SKIN: No rashes or lesions observed on exposed skin. NEURO: Alert and oriented 4. Limitations: no limitations Course Vital Signs 04/17/21 04/17/21 04/17/21 09:48 10:48 12:03 Temperature 97.9 F Pulse Rate 78 75 88 Respiratory 18 20 18 Rate Blood Pressure 211/104 203/117 170/99 O2 Sat by Pulse 98 97 97 Oximetry Medical Decision Making - Medical Decision Making Based on the patient's presentation and physical exam, she is currently asymptomatic but hypertensive. She did receive dialysis after her abnormal laboratory studies yesterday. However she presents for further evaluation. She is no other acute complaints at this time. However we will obtain basic laboratory studies as well as a screening EKG for lidocaine for signs of acute hyperkalemia we'll await results of labs. Patient will be administered IV hydralazine for her a symptomatically hypertension. She took her normal home medications this morning. She was in agreement with this plan. EKG shows no signs of acute hyperkalemia no signs of acute ischemia. Laboratory studies were remarkable for a chronic normocytic anemia with a hemoglobin of 8.8. Patient has an elevated BUN/creatinine the setting of ESRD on hemodia lysis. The remainder of her labs are unremarkable. On reevaluation, patient's blood pressure is improved to 170/99. I do believe is safe for her to be discharged with this time she is otherwise asymptomatic was no laboratory abnormalities. I advise she does not is a dialysis point and she was in agreement this plan. I instructed the patient to follow up with their PCP in the next 3 days. I explained that the patient should return to the emergency department if they experience any worsening symptoms. Strict return precautions were discussed with the patient. The patient expressed understanding of these instructions. I answered all questions that the patient had. The patient was discharged home in good condition with their prescriptions and follow up information. - Lab Data Result diagrams: 04/17/21 10:18 04/17/21 10:18 Lab Results 04/17/21 04/17/21 Range/Units 10:18 10:18 WBC 4.6 (3.8-10.6) k/uL RBC 2.88 L (3.80-5.40) m/uL Hgb 8.8 L (11.4-16.0) gm/dL Hct 25.5 L (34.0-46.0) % MCV 88.7 (80.0-100.0) fL MCH 30.6 (25.0-35.0) pg MCHC 34.5 (31.0-37.0) g/dL RDW 16.2 H (11.5-15.5) % Plt Count 155 (150-450) k/uL MPV 9.2 Neutrophils % 72 % Lymphocytes % 15 % Monocytes % 6 % Eosinophils % 5 % Basophils % 1 % Neutrophils # 3.3 (1.3-7.7) k/uL Lymphocytes # 0.7 L (1.0-4.8) k/uL Monocytes # 0.3 (0-1.0) k/uL Eosinophils # 0.3 (0-0.7) k/uL Basophils # 0.1 (0-0.2) k/uL Poikilocytosis Slight Anisocytosis Slight Sodium 134 L (137-145) mmol/L Potassium 4.6 (3.5-5.1) mmol/L Chloride 96 L (98-107) mmol/L Carbon Dioxide 25 (22-30) mmol/L Anion Gap 13 mmol/L BUN 39 H (7-17) mg/dL Creatinine 6.08 H (0.52-1.04) mg/dL Est GFR (CKD-EPI)AfAm 10 (>60 ml/min/1.73 sqM) Est GFR (CKD-EPI)NonAf 8 (>60 ml/min/1.73 sqM) Glucose 177 H (74-99) mg/dL Calcium 8.3 L (8.4-10.2) mg/dL Magnesium 2.1 (1.6-2.3) mg/dL Total Bilirubin 0.8 (0.2-1.3) mg/dL AST 21 (14-36) U/L ALT 17 (4-34) U/L Alkaline Phosphatase 117 (38-126) U/L Total Protein 6.5 (6.3-8.2) g/dL Albumin 4.0 (3.5-5.0) g/dL - EKG Data -: EKG Interpreted by Me EKG Comments: 12-lead Electrocardiogram Interpretation Note EKG was reviewed and interpreted by myself. 12-lead ECG performed at 1018 is interpreted by me as revealing normal sinus rhythm at a rate of 75 beats per minute. [place] is normal. OR interval is 176 ms, QRS duration is 86 ms, QTc is 489 ms.. There were no ST or T wave abnormalities to suggest myocardial is chemia or injury. R wave progression across the precordium was satisfactory. By my interpretation this EKG is non-diagnostic for acute ischemia. Disposition Clinical Impression: Hypertension, ESRD on dialysis, Normocytic anemia Disposition: HOME SELF-CARE Condition: Good Is patient prescribed a controlled substance at d/c from ED?: No Referrals: Edith Cruz MD [Primary Care Provider] - 1-2 days
[2021-04-17 12:05] VITALS: BP 170/99; PULSE 88; RESP 18
== END 2021-04-17 12:10 | disposition home or self-care (01) ==
LOC: EC 09:46
DX: I12.0 Hypertensive chronic kidney disease with stage 5 chronic kidney disease or end stage renal disease (principal); N18.6 End stage renal disease; D64.9 Anemia, unspecified; Z99.2 Dependence on renal dialysis; Z86.73 Personal history of transient ischemic attack (TIA), and cerebral infarction without residual deficits
CPT/HCPCS: 36415; 93005; 80053; 83735; 85025; 99285; 96374; J0360

== ENCOUNTER 2021-05-02 18:58 | Inpatient (IN) | payer MEDICARE ==
[2021-05-02] MEDS ORDERED: diphenhydrAMINE 50 MG/ML 1 ML VIAL IVP STA ×2 (20:04→22:32)
[2021-05-02] MEDS ORDERED: MORPHINE SULFATE 2 MG/ML SYRINGE IV STA (20:04)
[2021-05-02] MEDS ORDERED: SODIUM CHLORIDE 0.9% 500 ML 500 ML IV STA ×2 (20:04→22:59)
[2021-05-02] MEDS ORDERED: ONDANSETRON 4 MG/2 ML VIAL IVP STA (20:04)
--- NOTE | 2021-05-02 20:09 | ED ---
Nausea/Vomiting/Diarrhea HPI - General Chief complaint: Nausea/Vomiting/Diarrhea Stated complaint: vomiting & diarrhea Time Seen by Provider: 05/02/21 19:52 Source: patient Mode of arrival: ambulatory Limitations: no limitations - History of Present Illness Initial comments: 30 year-old female patient with past medication history significant for Type I d iabetes mellitus, ESRD with MWF dialysis, blindness d/t diabetic retinopathy, presents for evaluation of vomiting x3 days. States she is unable to keep down food or fluid. States her whole body hurts from vomiting. Denies any diarrhea or constipation. Denies fever or chills. She denies taking any medication. Denies chance of . Patient denies any recent rash, cough, shortness of breath, chest pain, back pain, numbness, tingling, dizziness, weakness, hematuria, dysuria, urinary urgency, urinary frequency, headache, visual changes, or any other complaints. - Related Data Home Medications Medication Instructions Recorded Confirmed Aspirin EC [Ecotrin Low Dose] 81 mg PO DAILY 04/03/21 05/02/21 Calcium Acetate 668mg 1,336 mg PO TID-W/MEALS 04/03/21 05/02/21 Carvedilol [Coreg] 25 mg PO BID 04/03/21 05/02/21 Ergocalciferol (Vitamin D2) 1,250 mcg PO Q7D 04/03/21 05/02/21 [Drisdol (50,000 Iu)] Furosemide [Lasix] 40 mg PO BID 04/03/21 05/02/21 INSULIN LISPRO (HumaLOG) [humaLOG] See Protocol SQ AC-TID 04/03/21 05/02/21 Insulin Glargine [Lantus Vial] 22 unit SQ DAILY 04/03/21 05/02/21 Isosorbide Mononitrate ER [Imdur] 30 mg PO HS 04/03/21 05/02/21 Pantoprazole Sodium [Protonix] 40 mg PO DAILY 04/03/21 05/02/21 Escitalopram [Lexapro] 20 mg PO DAILY 04/17/21 05/02/21 Irbesartan [Avapro] 75 mg PO DAILY 04/17/21 05/02/21 hydrALAZINE HCL [Apresoline] 25 mg PO TID 04/17/21 05/02/21 hydrALAZINE HCL [Apresoline] 100 mg PO TID 04/17/21 05/02/21 rOPINIRole HCL [Requip] 0.5 mg PO HS 04/17/21 05/02/21 Previous Rx's Medication Instructions Recorded Acetaminophen Tab [Tylenol] 650 mg PO Q6HR PRN #30 tab 04/09/21 Glucagon Emergency Kit 1 mg IM ONCE #1 kit 04/15/21 amLODIPine [Norvasc] 10 mg PO DAILY 30 Days #30 tab 04/15/21 cloNIDine HCL [Catapres] 0.3 mg PO TID 30 Days #90 tab 04/15/21 Allergies Allergy/AdvReac Type Severity Reaction Status Date / Time Fish Containing Products Allergy Rash/Hives Verified 05/02/21 21:01 [Fish] iodine Allergy Anaphylaxis Verified 05/02/21 21:01 Review of Systems ROS Statement: Those systems with pertinent positive or pertinent negative responses have been documented in the HPI. ROS Other: All systems not noted in ROS Statement are negative. Past Medical History Past Medical History: CVA/TIA, Dialysis, Hypertension Additional Past Medical History / Comment(s): Kidney disease History of Any Multi-Drug Resistant Organisms: None Reported Past Surgical History: Appendectomy, Section, Cholecystectomy Additional Past Surgical History / Comment(s): fistula left arm Past Anesthesia/Blood Transfusion Reactions: No Reported Reaction Past Psychological History: No Psychological Hx Reported Smoking Status: Never smoker Past Alcohol Use History: None Reported Past Drug Use History: None Reported - Past Family History Mother Family Medical History: Cancer, Hypertension Additional Family Medical History / Comment(s): Thyroid cancer, bipolar Father Additional Family Medical History / Comment(s): Epilepsy General Exam Limitations: no limitations General appearance: alert, in no apparent distress, other (Physical well- developed, well-nourished adult female in mild distress related to persistent vomiting.) Eye exam: Present: normal appearance, PERRL, EOMI. Absent: scleral icterus, conjunctival injection, periorbital swelling ENT exam: Present: normal exam, normal oropharynx, mucous membranes moist Respiratory exam: Present: normal lung sounds bilaterally. Absent: respiratory distress, wheezes, rales, rhonchi, stridor Cardiovascular Exam: Present: normal rhythm, tachycardia, normal heart sounds. Absent: systolic murmur, diastolic murmur, rubs, gallop, clicks GI/Abdominal exam: Present: soft, normal bowel sounds. Absent: distended, tende rness, guarding, rebound, rigid Neurological exam: Present: alert, oriented X3, CN II-XII intact Psychiatric exam: Present: normal affect, normal mood Skin exam: Present: warm, dry, intact, pallor. Absent: rash Course Vital Signs 05/02/21 05/02/21 05/02/21 19:10 20:13 21:26 Temperature 99.3 F Pulse Rate 102 H 100 99 Respiratory 20 18 18 Rate Blood Pressure 204/95 238/174 148/78 O2 Sat by Pulse 100 95 95 Oximetry 05/02/21 21:49 Temperature Pulse Rate 92 Respiratory Rate Blood Pressure 155/84 O2 Sat by Pulse Oximetry Medical Decision Making - Medical Decision Making 30-year-old female patient presents to the emergency department today for evaluation of vomiting for 3 days. She does have history of end-stage renal disease with dialysis Monday, Monday, Monday, diabetes. Physical examination did reveal soft nontender abdomen. Patient appeared quite uncomfortable, pale, shaking. Labs reviewed and did reveal hemoglobin 9.6, sodium 1:30, CO2 15, anion gap 30, BUN 56, creatinine 9.58, glucose 792, phosphorus 8.0, AST 349, a LT 454, alk phos 409. She does have positive acetone. Negative COVID-19. She did have VBG which showed pH 7.32, CO2 37, HCO3 18. She was given IV fluid. Started on insulin drip. She'll be admitted to the hospital for further eval uation and monitoring. Nephrology will be consulted for dialysis. Patient is agreeable with this plan. Case discussed with my attending Dr. Alvarez. - Lab Data Result diagrams: 05/02/21 20:26 05/02/21 20:26 Lab Results 05/02/21 05/02/21 05/02/21 Range/Units 19:17 20:26 20:26 WBC 3.9 (3.8-10.6) k/uL RBC 3.19 L (3.80-5.40) m/uL Hgb 9.6 L (11.4-16.0) gm/dL Hct 28.9 L (34.0-46.0) % MCV 90.5 (80.0-100.0) fL MCH 30.1 (25.0-35.0) pg MCHC 33.2 (31.0-37.0) g/dL RDW 15.5 (11.5-15.5) % Plt Count 305 (150-450) k/uL MPV 9.1 Neutrophils % 80 % Lymphocytes % 10 % Monocytes % 6 % Eosinophils % 1 % Basophils % 1 % Neutrophils # 3.1 (1.3-7.7) k/uL Lymphocytes # 0.4 L (1.0-4.8) k/uL Monocytes # 0.2 (0-1.0) k/uL Eosinophils # 0.1 (0-0.7) k/uL Basophils # 0.0 (0-0.2) k/uL VBG pH (7.31-7.41) VBG pCO2 (37-51) mmHg VBG HCO3 (24-28) mmol/L Sodium 130 L (137-145) mmol/L Potassium 4.6 (3.5-5.1) mmol/L Chloride 85 L (98-107) mmol/L Carbon Dioxide 15 L (22-30) mmol/L Anion Gap 30 mmol/L BUN 56 H (7-17) mg/dL Creatinine 9.58 H* (0.52-1.04) mg/dL Est GFR (CKD-EPI)AfAm 6 (>60 ml/min/1.73 sqM) Est GFR (CKD-EPI)NonAf 5 (>60 ml/min/1.73 sqM) Glucose 792 H* (74-99) mg/dL POC Glucose (mg/dL) (75-99) mg/dL POC Glu Medical Customer Service Representative ID Calcium 8.9 (8.4-10.2) mg/dL Phosphorus 8.0 H (2.5-4.5) mg/dL Magnesium 1.7 (1.6-2.3) mg/dL Total Bilirubin 0.6 (0.2-1.3) mg/dL AST 349 H (14-36) U/L ALT 454 H (4-34) U/L Alkaline Phosphatase 409 H (38-126) U/L Total Protein 6.9 (6.3-8.2) g/dL Albumin 4.5 (3.5-5.0) g/dL Lipase 128 (23-300) U/L Acetone, Qual (Negative) Coronavirus (PCR) Not Detected (Not Detectd) 05/02/21 05/02/21 05/02/21 Range/Units 20:30 21:25 22:28 WBC (3.8-10.6) k/uL RBC (3.80-5.40) m/uL Hgb (11.4-16.0) gm/dL Hct (34.0-46.0) % MCV (80.0-100.0) fL MCH (25.0-35.0) pg MCHC (31.0-37.0) g/dL RDW (11.5-15.5) % Plt Count (150-450) k/uL MPV Neutrophils % % Lymphocytes % % Monocytes % % Eosinophils % % Basophils % % Neutrophils # (1.3-7.7) k/uL Lymphocytes # (1.0-4.8) k/uL Monocytes # (0-1.0) k/uL Eosinophils # (0-0.7) k/uL Basophils # (0-0.2) k/uL VBG pH 7.32 (7.31-7.41) VBG pCO2 37 (37-51) mmHg VBG HCO3 18 L (24-28) mmol/L Sodium (137-145) mmol/L Potassium (3.5-5.1) mmol/L Chloride (98-107) mmol/L Carbon Dioxide (22-30) mmol/L Anion Gap mmol/L BUN (7-17) mg/dL Creatinine (0.52-1.04) mg/dL Est GFR (CKD-EPI)AfAm (>60 ml/min/1.73 sqM) Est GFR (CKD-EPI)NonAf (>60 ml/min/1.73 sqM) Glucose (74-99) mg/dL POC Glucose (mg/dL) >600 H (75-99) mg/dL POC Glu Medical Customer Service Representative ID Melvin, Adriana Calcium (8.4-10.2) mg/dL Phosphorus (2.5-4.5) mg/dL Magnesium (1.6-2.3) mg/dL Total Bilirubin (0.2-1.3) mg/dL AST (14-36) U/L ALT (4-34) U/L Alkaline Phosphatase (38-126) U/L Total Protein (6.3-8.2) g/dL Albumin (3.5-5.0) g/dL Lipase (23-300) U/L Acetone, Qual Positive (Negative) Coronavirus (PCR) (Not Detectd) Disposition Clinical Impression: DKA (diabetic ketoacidosis), Vomiting, Dehydration, Transaminitis Disposition: ADMITTED IP TO THIS [facility] Condition: Serious Referrals: Edith Cruz MD [Primary Care Provider] - 1-2 days Decision to Admit Reason: Admit from EC Decision Date: 05/02/21 Decision Time: 22:17
[2021-05-02 20:37] LABS: Basophils % (A) 1 %; Eosinophils # (A) 0.1 k/uL (0-0.7); Eosinophils % (A) 1 %; HCT 28.9 % (34.0-46.0); HGB 9.6 gm/dL (11.4-16.0); Lymphocytes # (A) 0.4 k/uL (1.0-4.8); Lymphocytes % (A) 10 %; MCH 30.1 pg (25.0-35.0); MCHC 33.2 g/dL (31.0-37.0); MCV 90.5 fL (80.0-100.0); Mean Platelet Volume 9.1; Monocytes # (A) 0.2 k/uL (0-1.0); Monocytes % (A) 6 %; Neutrophils # (A) 3.1 k/uL (1.3-7.7); Neutrophils % (A) 80 %; Platelet Count 305 k/uL (150-450); RBC 3.19 m/uL (3.80-5.40); RDW 15.5 % (11.5-15.5); WBC 3.9 k/uL (3.8-10.6)
[2021-05-02 20:45] LABS: Albumin 4.5 g/dL (3.5-5.0); Calcium 8.9 mg/dL (8.4-10.2); Magnesium 1.7 mg/dL (1.6-2.3); Potassium 4.6 mmol/L (3.5-5.1); Total Bilirubin 0.6 mg/dL (0.2-1.3); Total Protein 6.9 g/dL (6.3-8.2)
[2021-05-02 21:34] LABS: VBG PH 7.32 (7.31-7.41)
[2021-05-02] MEDS ORDERED: INSULIN REGULAR 100 UNIT/ML VIAL (IV) IV STA (22:09)
[2021-05-02] MEDS ORDERED: MORPHINE SULFATE 2 MG/ML SYRINGE IV PRN (22:11)
[2021-05-02] MEDS ORDERED: NALOXONE 0.4 MG/ML 1 ML VIAL IV PRN (22:11)
[2021-05-02] MEDS ORDERED: METOCLOPRAMIDE 5 MG/ML 2 ML VIAL IVP STA (22:32)
[2021-05-02] MEDS: INSULIN REGULAR 100 UNIT in SODIUM CHLORIDE 0.9% 100 ML IV SCH (22:34)
[2021-05-02] MEDS: FAMOTIDINE 20 MG/2 ML VIAL IV SCH (22:34)
[2021-05-02] MEDS: SODIUM CHLORIDE 0.9% 1,000 ML IV SCH (22:35)
[2021-05-02 22:45] LABS: Glucose,Whole Blood >600 mg/dL (75-99)
[2021-05-02] MEDS: ONDANSETRON 4 MG/2 ML VIAL IVP PRN (22:45)
[2021-05-02 23:42] LABS: Glucose,Whole Blood >600 mg/dL (75-99)
[2021-05-02] MEDS ORDERED: INSULIN REGULAR 100 UNIT/ML VIAL (IV) IV ONE (23:42)
[2021-05-03 00:38] LABS: Glucose,Whole Blood >600 mg/dL (75-99)
[2021-05-03 00:44] LABS: Phosphorus 6.8 mg/dL (2.5-4.5); Potassium 3.2 mmol/L (3.5-5.1)
[2021-05-03 01:00] LABS: Glucose,Whole Blood 570 mg/dL (75-99)
[2021-05-03 02:03] LABS: Glucose,Whole Blood 477 mg/dL (75-99)
[2021-05-03] MEDS: SODIUM CHLORIDE 0.9% 1,000 ML IV SCH (02:55)
[2021-05-03 03:03] LABS: Glucose,Whole Blood 394 mg/dL (75-99)
[2021-05-03] MEDS ORDERED: ACETAMINOPHEN TAB 325 MG TAB PO PRN (03:42)
[2021-05-03 04:09] LABS: Glucose,Whole Blood 267 mg/dL (75-99)
[2021-05-03] MEDS: ONDANSETRON 4 MG/2 ML VIAL IVP PRN (04:14)
[2021-05-03] MEDS: amLODIPine 10 MG TAB PO SCH ×3 (04:15→21:47)
[2021-05-03] MEDS ORDERED: hydrALAZINE HCL 20 MG/ML 1 ML VIAL IVP STA (04:48)
[2021-05-03] MEDS: D5-0.45% NACL WITH KCL 20MEQ/L 1,000 ML IV SCH ×2 (04:57→09:42)
[2021-05-03 04:59] LABS: Glucose,Whole Blood 162 mg/dL (75-99)
[2021-05-03] MEDS ORDERED: ACETAMINOPHEN IV (For NPO) 1,000 MG in EMPTY BAG 1 BAG IVPB ONE (05:01)
[2021-05-03 05:36] LABS: Potassium 3.4 mmol/L (3.5-5.1)
[2021-05-03 06:06] LABS: Glucose,Whole Blood 91 mg/dL (75-99)
[2021-05-03 07:14] LABS: Glucose,Whole Blood 78 mg/dL (75-99)
[2021-05-03] MEDS: PANTOPRAZOLE 40 MG TABLET PO SCH (07:18)
[2021-05-03] MEDS: CALCIUM ACETATE 667 MG TAB PO SCH ×3 (07:18→16:15)
[2021-05-03 08:22] LABS: Glucose,Whole Blood 147 mg/dL (75-99)
[2021-05-03] MEDS: carvediloL 12.5 MG TAB PO SCH ×2 (08:27→21:48)
[2021-05-03] MEDS: FUROSEMIDE 40 MG TAB PO SCH ×2 (08:27→16:34)
[2021-05-03] MEDS: LOSARTAN 25 MG TAB PO SCH (08:27)
[2021-05-03] MEDS: hydrALAZINE HCL 25 MG TAB PO SCH ×3 (08:27→21:47)
[2021-05-03] MEDS: cloNIDine HCL 0.1 MG TAB PO SCH ×3 (08:27→21:47)
[2021-05-03] MEDS: ASPIRIN 81 MG PO SCH (08:27)
[2021-05-03] MEDS: hydrALAZINE HCL 50 MG TAB PO SCH ×3 (08:27→21:47)
[2021-05-03] MEDS: ESCITALOPRAM 20 MG TAB PO SCH (08:27)
[2021-05-03] MEDS: FAMOTIDINE 20 MG/2 ML VIAL IV SCH (08:28)
--- NOTE | 2021-05-03 08:30 | P.NPCON ---
History of Present Illness - Reason for Consult end stage renal disease - History of Present Illness Reason for consultation: End-stage renal disease History of present illness: Patient is a 30-year-old female seen in renal consultation for end-stage renal disease. Patient was seen and evaluated in the emergency room. Patient presented to the hospital with nausea vomiting and diarrhea which she states began Panchito evening. She did have a fever of his eyes 102.4F this admission. Patient's blood sugar was 792 on admission and is down to 220 now. She did receive half a liter bolus of normal saline and is currently maintained on D5 half normal saline running at 1 50 mL an hour. She is also on insulin drip. She denies chest pain or shortness of breath. Vomiting has improved with Zofran but she still complains of loose bowel movements. No cough. She tested negative for coronavirus. Vital signs are stable. General: Awake and alert. HEENT: Head exam is unremarkable. LUNGS: Breath sounds decreased. HEART: Rate and Rhythm are regular. ABDOMEN: Soft, no distention. EXTREMITITES: No edema. Past Medical History Past Medical History: CVA/TIA, Dialysis, Hypertension Additional Past Medical History / Comment(s): Kidney disease History of Any Multi-Drug Resistant Organisms: None Reported Past Surgical History: Appendectomy, Section, Cholecystectomy Additional Past Surgical History / Comment(s): fistula left arm Past Anesthesia/Blood Transfusion Reactions: No Reported Reaction Past Psychological History: No Psychological Hx Reported Smoking Status: Never smoker Past Alcohol Use History: None Reported Past Drug Use History: None Reported - Past Family History Mother Family Medical History: Cancer, Hypertension Additional Family Medical History / Comment(s): Thyroid cancer, bipolar Father Additional Family Medical History / Comment(s): Epilepsy Medications and Allergies Home Medications Medication Instructions Recorded Confirmed Type Aspirin EC [Ecotrin Low Dose] 81 mg PO DAILY 04/03/21 05/02/21 History Calcium Acetate 668mg 1,336 mg PO TID-W/MEALS 04/03/21 05/02/21 History Carvedilol [Coreg] 25 mg PO BID 04/03/21 05/02/21 History Ergocalciferol (Vitamin D2) 1,250 mcg PO Q7D 04/03/21 05/02/21 History [Drisdol (50,000 Iu)] Furosemide [Lasix] 40 mg PO BID 04/03/21 05/02/21 History INSULIN LISPRO (HumaLOG) [humaLOG] See Protocol SQ AC-TID 04/03/21 05/02/21 History Insulin Glargine [Lantus Vial] 22 unit SQ DAILY 04/03/21 05/02/21 History Isosorbide Mononitrate ER [Imdur] 30 mg PO HS 04/03/21 05/02/21 History Pantoprazole Sodium [Protonix] 40 mg PO DAILY 04/03/21 05/02/21 History Acetaminophen Tab [Tylenol] 650 mg PO Q6HR PRN #30 tab 04/09/21 05/02/21 Rx Glucagon Emergency Kit 1 mg IM ONCE #1 kit 04/15/21 05/02/21 Rx amLODIPine [Norvasc] 10 mg PO DAILY 30 Days #30 tab 04/15/21 05/02/21 Rx cloNIDine HCL [Catapres] 0.3 mg PO TID 30 Days #90 tab 04/15/21 05/02/21 Rx Escitalopram [Lexapro] 20 mg PO DAILY 04/17/21 05/02/21 History Irbesartan [Avapro] 75 mg PO DAILY 04/17/21 05/02/21 History hydrALAZINE HCL [Apresoline] 25 mg PO TID 04/17/21 05/02/21 History hydrALAZINE HCL [Apresoline] 100 mg PO TID 04/17/21 05/02/21 History rOPINIRole HCL [Requip] 0.5 mg PO HS 04/17/21 05/02/21 History Allergies Allergy/AdvReac Type Severity Reaction Status Date / Time Fish Containing Products Allergy Rash/Hives Verified 05/02/21 21:01 [Fish] iodine Allergy Anaphylaxis Verified 05/02/21 21:01 Physical Exam Vitals: Vital Signs Temp Pulse Pulse Resp BP BP Pulse Ox 05/03/21 07:20 98.6 F 05/03/21 06:00 101.3 F H 161/77 05/03/21 04:00 102.4 F H 187/88 05/03/21 03:00 100.4 F H 96 17 209/102 99 05/03/21 00:45 98.6 F 88 18 165/78 99 05/02/21 21:49 92 155/84 05/02/21 21:26 99 18 148/78 95 05/02/21 20:13 100 18 238/174 95 05/02/21 19:10 99.3 F 102 H 20 204/95 100 Intake and Output 05/02/21 05/03/21 05/03/21 22:59 06:59 14:59 Intake Total 51.588 Balance 51.588 Intake: Intake, IV Titration 51.588 Amount Insulin Regular 100 unit 51.588 In Sodium Chloride 0.9% 100 ml @ 0.1 UNITS/KG/HR 5.039 mls/hr IV .Q20H3M [facility] Rx#:[id number] Other: Voiding Method Toilet Weight 49.895 kg Results - Lab Results Most recent lab results Calcium 8.9 mg/dL (8.4-10.2) 05/02/21 20:26 Phosphorus 5.0 mg/dL (2.5-4.5) H 05/03/21 04:28 Magnesium 1.7 mg/dL (1.6-2.3) 05/02/21 20:26 05/02/21 20:26 05/03/21 04:28 Assessment and Plan Plan: Assessment: 1. End-stage renal disease maintained on hemodialysis on Monday schedule. 2. DKA maintained on insulin drip and IV fluids. 3. Hypertonic hyponatremia secondary to hyperglycemia. 4. Anion gap metabolic acidosis secondary to DKA and chronic kidney disease. 5. 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 6. Hypertension with chronic kidney disease. 7. Nausea vomiting diarrhea. Possibly gastroenteritis. She tested negative for coronavirus. Plan: Decrease rate of IV fluids to 100 mL an hour. Hemodialysis today. Home antihypertensives and binders resumed. Thank you for the consultation. I will continue to follow the patient with you during her hospital stay.
[2021-05-03] MEDS ORDERED: ERGOCALCIFEROL 1,250 MCG (50,000 IU) CAPSULE PO SCH (09:00)
[2021-05-03 09:04] VITALS: RESP 18
[2021-05-03 09:37] LABS: Glucose,Whole Blood 125 mg/dL (75-99)
[2021-05-03 10:43] LABS: Glucose,Whole Blood 96 mg/dL (75-99)
--- NOTE | 2021-05-03 12:16 | P.HPIM ---
History of Present Illness Patient was in the [id number] female came in the with comments of nausea vomiting diarrhea has been going on since Monday. Patient also has a high-grade fever of 102 here. Patient is found to be diverticular acidosis with highly elevated blood sugars. Patient denied any dysuria barely makes any urine patient denied any cough. I do not have any chest x-ray available patient's Covid 19 is negative. The patient has highly elevated anion gap which is improving at this time. Patient last anion gap was 15 patient is hyponatremic secondary to diabetic ketoacidosis had severe metabolic acidosis. Patient is presently on IV insulin REVIEW OF SYSTEMS: CONSTITUTIONAL: As mentioned in HPI HEENT: No recent visual problems or hearing problems. Denied any sore throat. CARDIOVASCULAR: No chest pain, orthopnea, PND, no palpitations, no syncope. PULMONARY: No shortness of breath, no cough, no hemoptysis. GASTROINTESTINAL: Mentioned in HPI. NEUROLOGICAL: No headaches, no weakness, no numbness. HEMATOLOGICAL: Denies any bleeding or petechiae. GENITOURINARY: Denies any burning micturition, frequency, or urgency. MUSCULOSKELETAL/RHEUMATOLOGICAL: Denies any joint pain, swelling, or any muscle pain. ENDOCRINE: Denies any polyuria or polydipsia. The rest of the 14-point review of systems is negative. PHYSICAL EXAMINATION: GENERAL: The patient is alert and oriented x3, not in any acute distress. Well developed, well nourished. HEENT: Pupils are round and equally reacting to light. EOMI. No scleral icterus. No conjunctival pallor. Normocephalic, atraumatic. No pharyngeal erythema. No thyromegaly. CARDIOVASCULAR: S1 and S2 present. No murmurs, rubs, or gallops. PULMONARY: Chest is clear to auscultation, no wheezing or crackles. ABDOMEN: Soft, nontender, nondistended, normoactive bowel sounds. No palpable organomegaly. MUSCULOSKELETAL: No joint swelling or deformity. EXTREMITIES: No cyanosis, clubbing, or pedal edema. NEUROLOGICAL: Gross neurological examination did not reveal any focal deficits. SKIN: No rashes. Assessment and plan Diabetic ketoacidosis: Probably secondary to viral infection. Patient will be continued on DKA protocol once anion gap resolved patient will be transitioned to subcutaneous long-acting insulin an hour later patient will be started on diet and patient does carb counting for 3 meals which will be continued. Patient did not be started on any IV fluids because of her End-stage renal disease and barely makes any urine. -Systemic inflammatory response: Most probably viral gastroenteritis patient will be monitored for any more diarrhea she has diarrhea again we will obtain a C. diff testing. We will also rule out pneumonia will also obtain blood cult ures. Next and hypertension isn't disease (dependent patient the regular schedule is Monday patient will be continued on that schedule nephrology evaluated the patient is an-essential hypertension patient was resumed on her home medications -Type 1 diabetes mellitus -Diabetic peripheral neuropathy The high-grade fever patient will be monitored overnight. DVT prophylaxis: Early ambulation Past Medical History Past Medical History: CVA/TIA, Dialysis, Hypertension Additional Past Medical History / Comment(s): Kidney disease History of Any Multi-Drug Resistant Organisms: None Reported Past Surgical History: Appendectomy, Section, Cholecystectomy Additional Past Surgical History / Comment(s): fistula left arm Past Anesthesia/Blood Transfusion Reactions: No Reported Reaction Past Psychological History: No Psychological Hx Reported Smoking Status: Never smoker Past Alcohol Use History: None Reported Past Drug Use History: None Reported - Past Family History Mother Family Medical History: Cancer, Hypertension Additional Family Medical History / Comment(s): Thyroid cancer, bipolar Father Additional Family Medical History / Comment(s): Epilepsy Medications and Allergies Home Medications Medication Instructions Recorded Confirmed Type Aspirin EC [Ecotrin Low Dose] 81 mg PO DAILY 04/03/21 05/02/21 History Calcium Acetate 668mg 1,336 mg PO TID-W/MEALS 04/03/21 05/02/21 History Carvedilol [Coreg] 25 mg PO BID 04/03/21 05/02/21 History Ergocalciferol (Vitamin D2) 1,250 mcg PO Q7D 04/03/21 05/02/21 History [Drisdol (50,000 Iu)] Furosemide [Lasix] 40 mg PO BID 04/03/21 05/02/21 History INSULIN LISPRO (HumaLOG) [humaLOG] See Protocol SQ AC-TID 04/03/21 05/02/21 History Insulin Glargine [Lantus Vial] 22 unit SQ DAILY 04/03/21 05/02/21 History Isosorbide Mononitrate ER [Imdur] 30 mg PO HS 04/03/21 05/02/21 History Pantoprazole Sodium [Protonix] 40 mg PO DAILY 04/03/21 05/02/21 History Acetaminophen Tab [Tylenol] 650 mg PO Q6HR PRN #30 tab 04/09/21 05/02/21 Rx Glucagon Emergency Kit 1 mg IM ONCE #1 kit 04/15/21 05/02/21 Rx amLODIPine [Norvasc] 10 mg PO DAILY 30 Days #30 tab 04/15/21 05/02/21 Rx cloNIDine HCL [Catapres] 0.3 mg PO TID 30 Days #90 tab 04/15/21 05/02/21 Rx Escitalopram [Lexapro] 20 mg PO DAILY 04/17/21 05/02/21 History Irbesartan [Avapro] 75 mg PO DAILY 04/17/21 05/02/21 History hydrALAZINE HCL [Apresoline] 25 mg PO TID 04/17/21 05/02/21 History hydrALAZINE HCL [Apresoline] 100 mg PO TID 04/17/21 05/02/21 History rOPINIRole HCL [Requip] 0.5 mg PO HS 04/17/21 05/02/21 History Allergies Allergy/AdvReac Type Severity Reaction Status Date / Time Fish Containing Products Allergy Rash/Hives Verified 05/02/21 21:01 [Fish] iodine Allergy Anaphylaxis Verified 05/02/21 21:01 Physical Exam Vitals: Vital Signs Temp Pulse Pulse Resp BP BP Pulse Ox 05/03/21 10:44 98 F 71 18 133/66 99 05/03/21 08:00 98.1 F 89 18 166/74 98 05/03/21 07:20 98.6 F 05/03/21 06:00 101.3 F H 161/77 05/03/21 04:00 102.4 F H 187/88 05/03/21 03:00 100.4 F H 96 17 209/102 99 05/03/21 00:45 98.6 F 88 18 165/78 99 05/02/21 21:49 92 155/84 05/02/21 21:26 99 18 148/78 95 05/02/21 20:13 100 18 238/174 95 05/02/21 19:10 99.3 F 102 H 20 204/95 100 Intake and Output 05/02/21 05/03/21 05/03/21 22:59 06:59 14:59 Intake Total 51.588 40.599 Balance 51.588 40.599 Intake: Intake, IV Titration 51.588 40.599 Amount Insulin Regular 100 unit 51.588 40.599 In Sodium Chloride 0.9% 100 ml @ 0.1 UNITS/KG/HR 5.039 mls/hr IV .Q20H3M [facility] Rx#:[id number] Other: Voiding Method Toilet Toilet Weight 49.895 kg 49.895 kg Results CBC & Chem 7: 05/02/21 20:26 05/03/21 04:28 Labs: Abnormal Lab Results - Last 24 Hours (Table) 05/02/21 05/02/21 05/02/21 Range/Units 20:26 20:26 20:26 RBC 3.19 L (3.80-5.40) m/uL Hgb 9.6 L (11.4-16.0) gm/dL Hct 28.9 L (34.0-46.0) % Lymphocytes # 0.4 L (1.0-4.8) k/uL VBG HCO3 (24-28) mmol/L Sodium 130 L (137-145) mmol/L Potassium (3.5-5.1) mmol/L Chloride 85 L (98-107) mmol/L Carbon Dioxide 15 L (22-30) mmol/L BUN 56 H (7-17) mg/dL Creatinine 9.58 H* (0.52-1.04) mg/dL Glucose 792 H* (74-99) mg/dL POC Glucose (mg/dL) (75-99) mg/dL Osmolality 334 H* (280-301) mosm/kg Phosphorus 8.0 H (2.5-4.5) mg/dL AST 349 H (14-36) U/L ALT 454 H (4-34) U/L Alkaline Phosphatase 409 H (38-126) U/L 05/02/21 05/02/21 05/02/21 Range/Units 21:25 22:28 23:39 RBC (3.80-5.40) m/uL Hgb (11.4-16.0) gm/dL Hct (34.0-46.0) % Lymphocytes # (1.0-4.8) k/uL VBG HCO3 18 L (24-28) mmol/L Sodium (137-145) mmol/L Potassium (3.5-5.1) mmol/L Chloride (98-107) mmol/L Carbon Dioxide (22-30) mmol/L BUN (7-17) mg/dL Creatinine (0.52-1.04) mg/dL Glucose (74-99) mg/dL POC Glucose (mg/dL) >600 H >600 H (75-99) mg/dL Osmolality (280-301) mosm/kg Phosphorus (2.5-4.5) mg/dL AST (14-36) U/L ALT (4-34) U/L Alkaline Phosphatase (38-126) U/L 05/03/21 05/03/21 05/03/21 Range/Units 00:08 00:28 00:58 RBC (3.80-5.40) m/uL Hgb (11.4-16.0) gm/dL Hct (34.0-46.0) % Lymphocytes # (1.0-4.8) k/uL VBG HCO3 (24-28) mmol/L Sodium 132 L (137-145) mmol/L Potassium 3.2 L (3.5-5.1) mmol/L Chloride 91 L (98-107) mmol/L Carbon Dioxide 19 L (22-30) mmol/L BUN 61 H (7-17) mg/dL Creatinine 9.12 H* (0.52-1.04) mg/dL Glucose 674 H* (74-99) mg/dL POC Glucose (mg/dL) >600 H 570 H (75-99) mg/dL Osmolality (280-301) mosm/kg Phosphorus 6.8 H (2.5-4.5) mg/dL AST (14-36) U/L ALT (4-34) U/L Alkaline Phosphatase (38-126) U/L 05/03/21 05/03/21 05/03/21 Range/Units 02:01 03:01 04:08 RBC (3.80-5.40) m/uL Hgb (11.4-16.0) gm/dL Hct (34.0-46.0) % Lymphocytes # (1.0-4.8) k/uL VBG HCO3 (24-28) mmol/L Sodium (137-145) mmol/L Potassium (3.5-5.1) mmol/L Chloride (98-107) mmol/L Carbon Dioxide (22-30) mmol/L BUN (7-17) mg/dL Creatinine (0.52-1.04) mg/dL Glucose (74-99) mg/dL POC Glucose (mg/dL) 477 H 394 H 267 H (75-99) mg/dL Osmolality (280-301) mosm/kg Phosphorus (2.5-4.5) mg/dL AST (14-36) U/L ALT (4-34) U/L Alkaline Phosphatase (38-126) U/L 05/03/21 05/03/21 05/03/21 Range/Units 04:28 04:57 08:21 RBC (3.80-5.40) m/uL Hgb (11.4-16.0) gm/dL Hct (34.0-46.0) % Lymphocytes # (1.0-4.8) k/uL VBG HCO3 (24-28) mmol/L Sodium (137-145) mmol/L Potassium 3.4 L (3.5-5.1) mmol/L Chloride (98-107) mmol/L Carbon Dioxide 21 L (22-30) mmol/L BUN 64 H (7-17) mg/dL Creatinine 9.20 H* (0.52-1.04) mg/dL Glucose 220 H (74-99) mg/dL POC Glucose (mg/dL) 162 H 147 H (75-99) mg/dL Osmolality (280-301) mosm/kg Phosphorus 5.0 H (2.5-4.5) mg/dL AST (14-36) U/L ALT (4-34) U/L Alkaline Phosphatase (38-126) U/L 05/03/21 Range/Units 09:36 RBC (3.80-5.40) m/uL Hgb (11.4-16.0) gm/dL Hct (34.0-46.0) % Lymphocytes # (1.0-4.8) k/uL VBG HCO3 (24-28) mmol/L Sodium (137-145) mmol/L Potassium (3.5-5.1) mmol/L Chloride (98-107) mmol/L Carbon Dioxide (22-30) mmol/L BUN (7-17) mg/dL Creatinine (0.52-1.04) mg/dL Glucose (74-99) mg/dL POC Glucose (mg/dL) 125 H (75-99) mg/dL Osmolality (280-301) mosm/kg Phosphorus (2.5-4.5) mg/dL AST (14-36) U/L ALT (4-34) U/L Alkaline Phosphatase (38-126) U/L
[2021-05-03 12:31] LABS: Glucose,Whole Blood 63 mg/dL (75-99)
--- NOTE | 2021-05-03 12:42 | XR ---
EXAMINATION TYPE: XR chest 2V DATE OF EXAM: 05/03/2021 COMPARISON: Chest x-ray 04/12/2021 HISTORY: Pneumonia, abnormal chest x-ray, Covid symptoms TECHNIQUE: Frontal and lateral views of the chest are obtained. FINDINGS: Heart remains enlarged. There are overlying artifacts. There is no evident pneumothorax or pleural effusion. Right hemidiaphragm is again elevated. There is improvement in aeration within the lungs. Bones are stable. IMPRESSION: Persistent cardiomegaly. Improvement in lung aeration.
[2021-05-03 13:03] LABS: Calcium 8.2 mg/dL (8.4-10.2)
[2021-05-03 14:02] LABS: Glucose,Whole Blood 90 mg/dL (75-99)
[2021-05-03 15:21] LABS: Glucose,Whole Blood 156 mg/dL (75-99)
[2021-05-03] MEDS: INSULIN REGULAR 100 UNIT in SODIUM CHLORIDE 0.9% 100 ML IV SCH ×2 (16:21→21:36)
[2021-05-03 16:34] LABS: Glucose,Whole Blood 191 mg/dL (75-99)
[2021-05-03 19:54] LABS: Glucose,Whole Blood 85 mg/dL (75-99)
[2021-05-03 20:26] LABS: Glucose,Whole Blood 87 mg/dL (75-99)
[2021-05-03] MEDS ORDERED: ISOSORBIDE MONONITRATE ER 30 MG TAB.ER.24H PO SCH (21:00)
[2021-05-03 21:04] LABS: Glucose,Whole Blood 97 mg/dL (75-99)
[2021-05-03 21:39] LABS: Glucose,Whole Blood 124 mg/dL (75-99)
[2021-05-03] MEDS ORDERED: diphenhydrAMINE 25 MG CAP PO STA (21:57)
[2021-05-03 22:39] LABS: Glucose,Whole Blood 130 mg/dL (75-99)
[2021-05-03 23:42] LABS: Glucose,Whole Blood 117 mg/dL (75-99)
[2021-05-03 23:56] LABS: Calcium 8.6 mg/dL (8.4-10.2); Phosphorus 3.4 mg/dL (2.5-4.5); Potassium 3.3 mmol/L (3.5-5.1)
[2021-05-04] MEDS: D5-0.45% NACL WITH KCL 20MEQ/L 1,000 ML IV SCH ×2 (00:29→11:07)
[2021-05-04 00:49] LABS: Glucose,Whole Blood 101 mg/dL (75-99)
[2021-05-04 01:44] LABS: Glucose,Whole Blood 173 mg/dL (75-99)
[2021-05-04 02:38] LABS: Glucose,Whole Blood 214 mg/dL (75-99)
[2021-05-04 03:44] LABS: Glucose,Whole Blood 278 mg/dL (75-99)
[2021-05-04 04:05] LABS: Calcium 8.5 mg/dL (8.4-10.2); Potassium 3.9 mmol/L (3.5-5.1)
[2021-05-04 04:41] LABS: Glucose,Whole Blood 295 mg/dL (75-99)
[2021-05-04] MEDS ORDERED: carvediloL 12.5 MG TAB PO SCH (04:41)
[2021-05-04 05:50] LABS: Glucose,Whole Blood 253 mg/dL (75-99)
[2021-05-04] MEDS: PANTOPRAZOLE 40 MG TABLET PO SCH (05:58)
[2021-05-04] MEDS: CALCIUM ACETATE 667 MG TAB PO SCH ×2 (05:58→14:26)
[2021-05-04 06:49] LABS: Glucose,Whole Blood 197 mg/dL (75-99)
[2021-05-04 07:27] LABS: Glucose,Whole Blood 162 mg/dL (75-99)
[2021-05-04 08:33] LABS: Glucose,Whole Blood 109 mg/dL (75-99)
[2021-05-04] MEDS ORDERED: FAMOTIDINE 20 MG/2 ML VIAL IV SCH (09:00)
[2021-05-04 09:12] VITALS: TEMP 97.8
[2021-05-04] MEDS: hydrALAZINE HCL 25 MG TAB PO SCH (09:31)
[2021-05-04] MEDS: hydrALAZINE HCL 50 MG TAB PO SCH (09:31)
[2021-05-04] MEDS: FUROSEMIDE 40 MG TAB PO SCH (09:31)
[2021-05-04] MEDS: ESCITALOPRAM 20 MG TAB PO SCH (09:31)
[2021-05-04] MEDS: ASPIRIN 81 MG PO SCH (09:32)
[2021-05-04] MEDS: cloNIDine HCL 0.1 MG TAB PO SCH (09:32)
[2021-05-04] MEDS: LOSARTAN 25 MG TAB PO SCH (09:32)
--- NOTE | 2021-05-04 09:41 | P.PN ---
Subjective Patient is seen in follow-up for end-stage renal disease. She is maintained on hemodialysis on Monday schedule. No problems with dialysis yesterday. Remains on insulin drip and IV fluids. No vomiting or diarrhea. Vital signs are stable. General: The patient appeared well nourished and normally developed. HEENT: Head exam is unremarkable. LUNGS: Breath sounds decreased. HEART: Rate and Rhythm are regular. ABDOMEN: Soft, no distention. EXTREMITITES: No edema. Objective - Vital Signs Vital signs: Vital Signs Temp 97.8 F 05/04/21 08:00 Pulse 70 05/04/21 08:00 Resp 18 05/04/21 08:00 BP 142/74 05/04/21 08:00 Pulse Ox 97 05/04/21 08:00 Intake & Output 05/03/21 05/04/21 05/04/21 18:59 06:59 18:59 Intake Total 40.599 1335.008 8.61 Output Total 2300 Balance 40.599 -964.992 8.61 Weight 50.5 kg Intake: Intake, IV Titration 40.599 1015.008 8.61 Amount D5-0.45% NaCl with KCl 1000 20Meq/l 1,000 ml @ 100 mls/hr IV .Q10H [facility] Rx#: [id number] Insulin Regular 100 unit 40.599 15.008 8.61 In Sodium Chloride 0.9% 100 ml @ 0.1 UNITS/KG/HR 5.039 mls/hr IV .Q20H3M [facility] Rx#:[id number] Oral 20 Hemodialysis 300 Output: Hemodialysis 2300 Other: Voiding Method Toilet Toilet - Labs CBC & Chem 7: 05/02/21 20:26 05/04/21 03:25 Labs: Abnormal Lab Results - Last 24 Hours (Table) 05/03/21 05/03/21 05/03/21 Range/Units 09:36 12:12 12:28 Sodium (137-145) mmol/L Potassium (3.5-5.1) mmol/L Chloride (98-107) mmol/L Carbon Dioxide (22-30) mmol/L BUN 66 H (7-17) mg/dL Creatinine 9.43 H* (0.52-1.04) mg/dL Glucose 51 L (74-99) mg/dL POC Glucose (mg/dL) 125 H 63 L (75-99) mg/dL Calcium 8.2 L (8.4-10.2) mg/dL 05/03/21 05/03/21 05/03/21 Range/Units 15:19 16:33 21:36 Sodium (137-145) mmol/L Potassium (3.5-5.1) mmol/L Chloride (98-107) mmol/L Carbon Dioxide (22-30) mmol/L BUN (7-17) mg/dL Creatinine (0.52-1.04) mg/dL Glucose (74-99) mg/dL POC Glucose (mg/dL) 156 H 191 H 124 H (75-99) mg/dL Calcium (8.4-10.2) mg/dL 05/03/21 05/03/21 05/03/21 Range/Units 22:36 22:49 23:41 Sodium 134 L (137-145) mmol/L Potassium 3.3 L (3.5-5.1) mmol/L Chloride 97 L (98-107) mmol/L Carbon Dioxide (22-30) mmol/L BUN 27 H (7-17) mg/dL Creatinine 5.29 H (0.52-1.04) mg/dL Glucose 124 H (74-99) mg/dL POC Glucose (mg/dL) 130 H 117 H (75-99) mg/dL Calcium (8.4-10.2) mg/dL 05/04/21 05/04/21 05/04/21 Range/Units 00:43 01:41 02:37 Sodium (137-145) mmol/L Potassium (3.5-5.1) mmol/L Chloride (98-107) mmol/L Carbon Dioxide (22-30) mmol/L BUN (7-17) mg/dL Creatinine (0.52-1.04) mg/dL Glucose (74-99) mg/dL POC Glucose (mg/dL) 101 H 173 H 214 H (75-99) mg/dL Calcium (8.4-10.2) mg/dL 05/04/21 05/04/21 05/04/21 Range/Units 03:25 03:42 04:39 Sodium 132 L (137-145) mmol/L Potassium (3.5-5.1) mmol/L Chloride 97 L (98-107) mmol/L Carbon Dioxide 21 L (22-30) mmol/L BUN 29 H (7-17) mg/dL Creatinine 5.84 H (0.52-1.04) mg/dL Glucose 265 H (74-99) mg/dL POC Glucose (mg/dL) 278 H 295 H (75-99) mg/dL Calcium (8.4-10.2) mg/dL 05/04/21 05/04/21 05/04/21 Range/Units 05:48 06:47 07:16 Sodium (137-145) mmol/L Potassium (3.5-5.1) mmol/L Chloride (98-107) mmol/L Carbon Dioxide (22-30) mmol/L BUN (7-17) mg/dL Creatinine (0.52-1.04) mg/dL Glucose (74-99) mg/dL POC Glucose (mg/dL) 253 H 197 H 162 H (75-99) mg/dL Calcium (8.4-10.2) mg/dL 05/04/21 Range/Units 08:31 Sodium (137-145) mmol/L Potassium (3.5-5.1) mmol/L Chloride (98-107) mmol/L Carbon Dioxide (22-30) mmol/L BUN (7-17) mg/dL Creatinine (0.52-1.04) mg/dL Glucose (74-99) mg/dL POC Glucose (mg/dL) 109 H (75-99) mg/dL Calcium (8.4-10.2) mg/dL Assessment and Plan Plan: Assessment: 1. End-stage renal disease maintained on hemodialysis on Monday schedule. 2. DKA maintained on insulin drip and IV fluids. 3. Hypertonic hyponatremia secondary to hyperglycemia. Better. 4. Anion gap metabolic acidosis secondary to DKA and chronic kidney disease. 5. 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 6. Hypertension with chronic kidney disease. Stable. 7. Nausea vomiting diarrhea. Possibly gastroenteritis. Improved. She tested negative for coronavirus. Plan: Hemodialysis tomorrow. Hep-Lock IV fluids once diet initiated.
[2021-05-04 09:53] LABS: Glucose,Whole Blood 78 mg/dL (75-99)
[2021-05-04 09:56] LABS: Anisocytosis Slight; HCT 22.7 % (34.0-46.0); MCHC 34.8 g/dL (31.0-37.0); MCV 89.1 fL (80.0-100.0); Mean Platelet Volume 9.3; Platelet Count 218 k/uL (150-450); RBC 2.55 m/uL (3.80-5.40); RDW 16.8 % (11.5-15.5); WBC 5.3 k/uL (3.8-10.6)
[2021-05-04 10:03] LABS: HGB 7.9 gm/dL (11.4-16.0)
[2021-05-04 10:04] LABS: Calcium 8.7 mg/dL (8.4-10.2)
[2021-05-04 10:34] VITALS: BMI 19.1
[2021-05-04 11:23] LABS: Glucose,Whole Blood 71 mg/dL (75-99)
--- NOTE | 2021-05-04 11:29 | P.DS ---
Providers Date of admission: 05/02/21 23:49 Attending physician: Hector Pena Consults: 05/02/21 22:11 Consult Physician Routine Consulting Provider: Aurelia Poe Consult Reason/Comments: Dialysis; DKA Do you want consulting provider notified?: Yes Primary care physician: [facility] Course: Patient was in the [id number] female came in the with comments of nausea vomiting diarrhea has been going on since Monday. Patient also has a high-grade fever of 102 here. Patient is found to be diverticular acidosis with highly elevated blood sugars. Patient denied any dysuria barely makes any urine patient denied any cough. I do not have any chest x-ray available patient's Covid 19 is negative. The patient has highly elevated anion gap which is improving at this time. Patient last anion gap was 15 patient is hyponatremic secondary to diabetic ketoacidosis had severe metabolic acidosis. Patient is presently on IV insulin 05/04/2021 Patient's ketoacidosis resolved and patient is clinically doing well patient will be given long-acting insulin, patient's insulin drip was discontinued patient will be discharged today patient is afebrile patient was not given any antibiotics without antibiotics and fever resolved so far all the workup for sepsis is negative patient may have had viral gastroenteritis which resolved at this time. If patient's blood cultures are positive patient will be requested to come back at that time for now patient will be discharged today and patient is medically stable clinically doing well. PHYSICAL EXAMINATION: GENERAL: The patient is alert and oriented x3, not in any acute distress. Well developed, well nourished. HEENT: Pupils are round and equally reacting to light. EOMI. No scleral icterus. No conjunctival pallor. Normocephalic, atraumatic. No pharyngeal erythema. No thyromegaly. CARDIOVASCULAR: S1 and S2 present. No murmurs, rubs, or gallops. PULMONARY: Chest is clear to auscultation, no wheezing or crackles. ABDOMEN: Soft, nontender, nondistended, normoactive bowel sounds. No palpable organomegaly. MUSCULOSKELETAL: No joint swelling or deformity. EXTREMITIES: No cyanosis, clubbing, or pedal edema. NEUROLOGICAL: Gross neurological examination did not reveal any focal deficits. SKIN: No rashes. Assessment and plan Diabetic ketoacidosis: Probably secondary to viral infection. -Systemic inflammatory response: Most probably viral gastroenteritis End-stage renal disease Monday hemodialysis yesterday -essential hypertension patient was resumed on her home medications -Type 1 diabetes mellitus -Diabetic peripheral neuropathy Patient Condition at Discharge: Serious Plan - Discharge Summary New Discharge Prescriptions: Continue Pantoprazole Sodium [Protonix] 40 mg PO DAILY Calcium Acetate 668mg 1,336 mg PO TID-W/MEALS Aspirin EC [Ecotrin Low Dose] 81 mg PO DAILY INSULIN LISPRO (HumaLOG) [humaLOG] See Protocol SQ AC-TID Escitalopram [Lexapro] 20 mg PO DAILY hydrALAZINE HCL [Apresoline] 100 mg PO TID Irbesartan [Avapro] 75 mg PO DAILY rOPINIRole HCL [Requip] 0.5 mg PO HS Insulin Glargine [Lantus Vial] 22 unit SQ DAILY Isosorbide Mononitrate ER [Imdur] 30 mg PO HS Furosemide [Lasix] 40 mg PO BID Ergocalciferol (Vitamin D2) [Drisdol (50,000 Iu)] 1,250 mcg PO Q7D Carvedilol [Coreg] 25 mg PO BID Acetaminophen Tab [Tylenol] 650 mg PO Q6HR PRN #30 tab PRN Reason: Fever And/ Or Pain cloNIDine HCL [Catapres] 0.3 mg PO TID 30 Days #90 tab amLODIPine [Norvasc] 10 mg PO DAILY 30 Days #30 tab Glucagon Emergency Kit 1 mg IM ONCE #1 kit Discontinued hydrALAZINE HCL [Apresoline] 25 mg PO TID Discharge Medication List Aspirin EC [Ecotrin Low Dose] 81 mg PO DAILY 04/03/21 [History] Calcium Acetate 668mg 1,336 mg PO TID-W/MEALS 04/03/21 [History] Carvedilol [Coreg] 25 mg PO BID 04/03/21 [History] Ergocalciferol (Vitamin D2) [Drisdol (50,000 Iu)] 1,250 mcg PO Q7D 04/03/21 [History] Furosemide [Lasix] 40 mg PO BID 04/03/21 [History] INSULIN LISPRO (HumaLOG) [humaLOG] See Protocol SQ AC-TID 04/03/21 [History] Insulin Glargine [Lantus Vial] 22 unit SQ DAILY 04/03/21 [History] Isosorbide Mononitrate ER [Imdur] 30 mg PO HS 04/03/21 [History] Pantoprazole Sodium [Protonix] 40 mg PO DAILY 04/03/21 [History] Acetaminophen Tab [Tylenol] 650 mg PO Q6HR PRN #30 tab 04/09/21 [Rx] Glucagon Emergency Kit 1 mg IM ONCE #1 kit 04/15/21 [Rx] amLODIPine [Norvasc] 10 mg PO DAILY 30 Days #30 tab 04/15/21 [Rx] cloNIDine HCL [Catapres] 0.3 mg PO TID 30 Days #90 tab 04/15/21 [Rx] Escitalopram [Lexapro] 20 mg PO DAILY 04/17/21 [History] Irbesartan [Avapro] 75 mg PO DAILY 04/17/21 [History] hydrALAZINE HCL [Apresoline] 100 mg PO TID 04/17/21 [History] rOPINIRole HCL [Requip] 0.5 mg PO HS 04/17/21 [History] Follow up Appointment(s)/Referral(s): Eidth Cruz MD [Primary Care Provider] - 3 Days Discharge Disposition: HOME SELF-CARE
[2021-05-04 12:22] VITALS: BP 122/68; PULSE 73
[2021-05-04 13:25] LABS: Glucose,Whole Blood 209 mg/dL (75-99)
[2021-05-04] MEDS ORDERED: INSULIN ASPART (NovoLOG) 100 UNIT/ML VIAL SQ SCH (17:30)
[2021-05-05] MEDS ORDERED: INSULIN DETEMIR (LEVEMIR) 100 UNIT/ML SYR SQ SCH (07:00)
== END 2021-05-04 15:20 | disposition home or self-care (01) | DRG 637 ==
LOC: EC 18:58 → 3SCARD 23:49
PROVIDERS: ADMIT Hospitalist; ATTEND Hospitalist
PROC: 5A1D70Z Performance of Urinary Filtration, Intermittent, Less than 6 Hours Per Day (ICD-10-PCS; principal; 2021-05-03)
DX: E10.10 Type 1 diabetes mellitus with ketoacidosis without coma (principal); N18.6 End stage renal disease; I12.0 Hypertensive chronic kidney disease with stage 5 chronic kidney disease or end stage renal disease; R65.10 Systemic inflammatory response syndrome (SIRS) of non-infectious origin without acute organ dysfunction; Z20.822 Contact with and (suspected) exposure to COVID-19; A08.4 Viral intestinal infection, unspecified; E10.319 Type 1 diabetes mellitus with unspecified diabetic retinopathy without macular edema; R74.01 Elevation of levels of liver transaminase levels; E10.22 Type 1 diabetes mellitus with diabetic chronic kidney disease; E10.42 Type 1 diabetes mellitus with diabetic polyneuropathy; E86.0 Dehydration; H54.7 Unspecified visual loss; M89.8X9 Other specified disorders of bone, unspecified site; Z79.4 Long term (current) use of insulin; Z79.82 Long term (current) use of aspirin; Z79.899 Other long term (current) drug therapy; Z86.73 Personal history of transient ischemic attack (TIA), and cerebral infarction without residual deficits; Z99.2 Dependence on renal dialysis; Z91.041 Radiographic dye allergy status; Z91.013 Allergy to seafood; Z90.49 Acquired absence of other specified parts of digestive tract
CPT/HCPCS: 71046; 80048; 80051; 80053; 82009; 82565; 82803; 82947; 83690; 83735; 83930; 84100; 84520; 85025; 85027; 87040; 87502; 87635; 90935; 93005; 96374; 96375; 99285

== ENCOUNTER 2021-05-29 16:46 | Observation (INO) | payer MEDICARE ==
[2021-05-29 16:55] LABS: Glucose,Whole Blood 143 mg/dL (75-99)
[2021-05-29] MEDS ORDERED: MORPHINE SULFATE 4 MG/ML SYRINGE IV STA (17:03)
[2021-05-29] MEDS ORDERED: diphenhydrAMINE 50 MG/ML 1 ML VIAL IVP STA (17:03)
[2021-05-29] MEDS ORDERED: METOCLOPRAMIDE 5 MG/ML 2 ML VIAL IVP STA (17:03)
[2021-05-29] MEDS ORDERED: SODIUM CHLORIDE 0.9% 500 ML 500 ML IV STA (17:03)
--- NOTE | 2021-05-29 17:03 | ED ---
General Adult HPI - General Chief complaint: Nausea/Vomiting/Diarrhea Stated complaint: Vomiting Time Seen by Provider: 05/29/21 16:50 Source: patient, EMS Mode of arrival: EMS Limitations: no limitations - History of Present Illness Initial comments: Ty shooting is a 30-year-old female past medical history of type 1 diabetes, end- stage renal disease on hemodialysis Monday, CVA who presents emergency Department with reported nausea, vomiting, body aches and hypoglycemia. She states she's been unable to hold down any food or drink for the past 2 days. Symptoms started yesterday and she thought it was because of dialysis that she felt this way. She denies missing any recent sessions. She was recently hospitalized. Denies any additional sick contacts. No cold exposure. She is not vaccinated against Covid. She also admits to a fever. She felt extremely sick at home and therefore EMS was called. Her sister gave her a dose of her glucagon. EMS arrived after glucagon was administered and her sugar was still only 82. She denies cough or shortness of breath. No concern for . No other alleviating, precipitating or modifying factors - Related Data Home Medications Medication Instructions Recorded Confirmed Aspirin EC [Ecotrin Low Dose] 81 mg PO DAILY 04/03/21 05/29/21 Carvedilol [Coreg] 25 mg PO BID 04/03/21 05/29/21 Ergocalciferol (Vitamin D2) 1,250 mcg PO Q7D 04/03/21 05/29/21 [Drisdol (50,000 Iu)] Furosemide [Lasix] 40 mg PO BID 04/03/21 05/29/21 INSULIN LISPRO (HumaLOG) [humaLOG] See Protocol SQ AC-TID 04/03/21 05/29/21 Isosorbide Mononitrate ER [Imdur] 30 mg PO HS 04/03/21 05/29/21 Escitalopram [Lexapro] 20 mg PO DAILY 04/17/21 05/29/21 Irbesartan [Avapro] 75 mg PO DAILY 04/17/21 05/29/21 hydrALAZINE HCL [Apresoline] 100 mg PO TID 04/17/21 05/29/21 rOPINIRole HCL [Requip] 0.5 mg PO HS 04/17/21 05/29/21 Glucagon Emergency Kit 1 mg IM ONCE PRN 05/29/21 05/29/21 Previous Rx's Medication Instructions Recorded Acetaminophen Tab [Tylenol] 650 mg PO Q6HR PRN #30 tab 04/09/21 amLODIPine [Norvasc] 10 mg PO DAILY 30 Days #30 tab 04/15/21 cloNIDine HCL [Catapres] 0.3 mg PO TID 30 Days #90 tab 04/15/21 Cefuroxime [Ceftin] 250 mg PO BID 3 Days #6 tab 05/31/21 Insulin Glargine [Lantus Vial] 15 unit SQ DAILY #0 05/31/21 Sevelamer [Renvela] 800 mg PO TID-W/MEALS 30 Days #90 05/31/21 tab Allergies Allergy/AdvReac Type Severity Reaction Status Date / Time Fish Containing Products Allergy Rash/Hives Verified 05/29/21 19:41 [Fish] iodine Allergy Anaphylaxis Verified 05/29/21 19:41 Review of Systems ROS Statement: Those systems with pertinent positive or pertinent negative responses have been documented in the HPI. ROS Other: All systems not noted in ROS Statement are negative. Past Medical History Past Medical History: CVA/TIA, Dialysis, Hypertension Additional Past Medical History / Comment(s): Kidney disease History of Any Multi-Drug Resistant Organisms: None Reported Past Surgical History: Appendectomy, Section, Cholecystectomy Additional Past Surgical History / Comment(s): fistula left arm Past Anesthesia/Blood Transfusion Reactions: No Reported Reaction Past Psychological History: No Psychological Hx Reported Smoking Status: Never smoker Past Alcohol Use History: None Reported Past Drug Use History: None Reported - Past Family History Mother Family Medical History: Cancer, Hypertension Additional Family Medical History / Comment(s): Thyroid cancer, bipolar Father Additional Family Medical History / Comment(s): Epilepsy General Exam Limitations: no limitations General appearance: alert, in no apparent distress, cachectic Head exam: Present: atraumatic, normocephalic, normal inspection Eye exam: Present: normal appearance, PERRL, EOMI. Absent: scleral icterus, conjunctival injection, periorbital swelling ENT exam: Present: normal exam, mucous membranes moist Neck exam: Present: normal inspection. Absent: tenderness, meningismus, lymphadenopathy Respiratory exam: Present: normal lung sounds bilaterally. Absent: respiratory distress, wheezes, rales, rhonchi, stridor Cardiovascular Exam: Present: regular rate, normal rhythm, normal heart sounds. Absent: systolic murmur, diastolic murmur, rubs, gallop, clicks GI/Abdominal exam: Present: soft, normal bowel sounds. Absent: distended, tenderness, guarding, rebound, rigid Extremities exam: Present: normal inspection, full ROM, normal capillary refill. Absent: tenderness, pedal edema, joint swelling, calf tenderness Back exam: Present: normal inspection Neurological exam: Present: alert, oriented X3, CN II-XII intact Psychiatric exam: Present: normal affect, normal mood Skin exam: Present: warm, dry, intact, normal color. Absent: rash Course Vital Signs 05/29/21 05/29/21 16:49 20:30 Temperature 97.8 F Pulse Rate 74 71 Respiratory 16 18 Rate Blood Pressure 179/96 168/84 O2 Sat by Pulse 96 99 Oximetry - Reevaluation(s) Reevaluation #1: After the patient is admitted she does report to having some chest pain and therefore troponin levels added on the patient's labs 05/29/21 20:01 EKG Findings - EKG Comments: EKG Findings:: EKG demonstrates normal sinus rhythm with a ventricular rate of 76. TX interval 148. QRS 92. QTC of 510. No acute ST segment elevations or depressions Medical Decision Making - Medical Decision Making Upon arrival patient placed into room 14. Throat history and physical exam is performed. Patient did receive glucagon and oral sucrose prior to hospital arrival. Blood sugar is checked and is 143. IV is established and patient is given a 500 fluid bolus. Laboratory studies are conduct. Patient has a white blood cell count of 15.5. Covid not detected. Chest x-ray demonstrates no acute process. We did re-check the patient sugars and they are 72. I did give her an amp of D50. She received Zofran by EMS for her nausea which she states did not help. She has been given a dose of Reglan and Benadryl. Patient is reevaluated and continues to have nausea. Patient given a dose of Compazine. I did discuss results. Patient continues to have intractable nausea and therefore did recommend admission. Spoke with Dr. Pena. Blood cultures obtained and patient given a dose of Rocephin for her leukocytosis. She remained in stable condition awaiting a bed - Lab Data Result diagrams: 05/31/21 10:23 05/31/21 10:23 Lab Results 05/29/21 05/29/21 05/29/21 Range/Units 16:54 18:00 18:00 WBC (3.8-10.6) k/uL RBC (3.80-5.40) m/uL Hgb (11.4-16.0) gm/dL Hct (34.0-46.0) % MCV (80.0-100.0) fL MCH (25.0-35.0) pg MCHC (31.0-37.0) g/dL RDW (11.5-15.5) % Plt Count (150-450) k/uL MPV Neutrophils % % Lymphocytes % % Monocytes % % Eosinophils % % Basophils % % Neutrophils # (1.3-7.7) k/uL Lymphocytes # (1.0-4.8) k/uL Monocytes # (0-1.0) k/uL Eosinophils # (0-0.7) k/uL Basophils # (0-0.2) k/uL Sodium 138 (137-145) mmol/L Potassium 3.6 (3.5-5.1) mmol/L Chloride 91 L (98-107) mmol/L Carbon Dioxide 29 (22-30) mmol/L Anion Gap 18 mmol/L BUN 26 H (7-17) mg/dL Creatinine 5.96 H (0.52-1.04) mg/dL Est GFR (CKD-EPI)AfAm 10 (>60 ml/min/1.73 sqM) Est GFR (CKD-EPI)NonAf 9 (>60 ml/min/1.73 sqM) Glucose 147 H (74-99) mg/dL POC Glucose (mg/dL) 143 H (75-99) mg/dL POC Glu Lithographic Stripper ID Belval, Liseth Plasma Lactic Acid Dio 1.0 (0.7-2.0) mmol/L Calcium 10.5 H (8.4-10.2) mg/dL Magnesium 2.3 (1.6-2.3) mg/dL Total Bilirubin 0.7 (0.2-1.3) mg/dL AST 32 (14-36) U/L ALT 25 (4-34) U/L Alkaline Phosphatase 181 H (38-126) U/L Troponin I (0.000-0.034) ng/mL Total Protein 8.4 H (6.3-8.2) g/dL Albumin 5.0 (3.5-5.0) g/dL HCG, Qual Not Detected Acetone, Qual Negative (Negative) Coronavirus (PCR) (Not Detectd) 05/29/21 05/29/21 05/29/21 Range/Units 18:00 18:00 18:02 WBC 15.5 H (3.8-10.6) k/uL RBC 4.39 (3.80-5.40) m/uL Hgb 12.9 D (11.4-16.0) gm/dL Hct 38.9 (34.0-46.0) % MCV 88.6 (80.0-100.0) fL MCH 29.4 (25.0-35.0) pg MCHC 33.2 (31.0-37.0) g/dL RDW 15.9 H (11.5-15.5) % Plt Count 292 (150-450) k/uL MPV 8.2 Neutrophils % 87 % Lymphocytes % 5 % Monocytes % 6 % Eosinophils % 1 % Basophils % 1 % Neutrophils # 13.5 H (1.3-7.7) k/uL Lymphocytes # 0.8 L (1.0-4.8) k/uL Monocytes # 0.9 (0-1.0) k/uL Eosinophils # 0.1 (0-0.7) k/uL Basophils # 0.1 (0-0.2) k/uL Sodium (137-145) mmol/L Potassium (3.5-5.1) mmol/L Chloride (98-107) mmol/L Carbon Dioxide (22-30) mmol/L Anion Gap mmol/L BUN (7-17) mg/dL Creatinine (0.52-1.04) mg/dL Est GFR (CKD-EPI)AfAm (>60 ml/min/1.73 sqM) Est GFR (CKD-EPI)NonAf (>60 ml/min/1.73 sqM) Glucose (74-99) mg/dL POC Glucose (mg/dL) (75-99) mg/dL POC Glu Lithographic Stripper ID Plasma Lactic Acid Dio (0.7-2.0) mmol/L Calcium (8.4-10.2) mg/dL Magnesium (1.6-2.3) mg/dL Total Bilirubin (0.2-1.3) mg/dL AST (14-36) U/L ALT (4-34) U/L Alkaline Phosphatase (38-126) U/L Troponin I 0.013 (0.000-0.034) ng/mL Total Protein (6.3-8.2) g/dL Albumin (3.5-5.0) g/dL HCG, Qual Acetone, Qual (Negative) Coronavirus (PCR) Not Detected (Not Detectd) 05/29/21 Range/Units 19:06 WBC (3.8-10.6) k/uL RBC (3.80-5.40) m/uL Hgb (11.4-16.0) gm/dL Hct (34.0-46.0) % MCV (80.0-100.0) fL MCH (25.0-35.0) pg MCHC (31.0-37.0) g/dL RDW (11.5-15.5) % Plt Count (150-450) k/uL MPV Neutrophils % % Lymphocytes % % Monocytes % % Eosinophils % % Basophils % % Neutrophils # (1.3-7.7) k/uL Lymphocytes # (1.0-4.8) k/uL Monocytes # (0-1.0) k/uL Eosinophils # (0-0.7) k/uL Basophils # (0-0.2) k/uL Sodium (137-145) mmol/L Potassium (3.5-5.1) mmol/L Chloride (98-107) mmol/L Carbon Dioxide (22-30) mmol/L Anion Gap mmol/L BUN (7-17) mg/dL Creatinine (0.52-1.04) mg/dL Est GFR (CKD-EPI)AfAm (>60 ml/min/1.73 sqM) Est GFR (CKD-EPI)NonAf (>60 ml/min/1.73 sqM) Glucose (74-99) mg/dL POC Glucose (mg/dL) 72 L (75-99) mg/dL POC Glu Lithographic Stripper ID Belval, Liseth Plasma Lactic Acid Dio (0.7-2.0) mmol/L Calcium (8.4-10.2) mg/dL Magnesium (1.6-2.3) mg/dL Total Bilirubin (0.2-1.3) mg/dL AST (14-36) U/L ALT (4-34) U/L Alkaline Phosphatase (38-126) U/L Troponin I (0.000-0.034) ng/mL Total Protein (6.3-8.2) g/dL Albumin (3.5-5.0) g/dL HCG, Qual Acetone, Qual (Negative) Coronavirus (PCR) (Not Detectd) Disposition Clinical Impression: Hypoglycemia, Dehydration, Vomiting, Leukocytosis Disposition: ADMITTED IP TO THIS [facility] Condition: Serious Is patient prescribed a controlled substance at d/c from ED?: No Decision to Admit Reason: Admit from EC Decision Date: 05/29/21 Decision Time: 19:29
[2021-05-29 18:20] LABS: Basophils # (A) 0.1 k/uL (0-0.2); Basophils % (A) 1 %; Eosinophils # (A) 0.1 k/uL (0-0.7); Eosinophils % (A) 1 %; HCT 38.9 % (34.0-46.0); Lymphocytes # (A) 0.8 k/uL (1.0-4.8); Lymphocytes % (A) 5 %; MCH 29.4 pg (25.0-35.0); MCHC 33.2 g/dL (31.0-37.0); MCV 88.6 fL (80.0-100.0); Mean Platelet Volume 8.2; Monocytes # (A) 0.9 k/uL (0-1.0); Monocytes % (A) 6 %; Neutrophils # (A) 13.5 k/uL (1.3-7.7); Neutrophils % (A) 87 %; Platelet Count 292 k/uL (150-450); RBC 4.39 m/uL (3.80-5.40); RDW 15.9 % (11.5-15.5); WBC 15.5 k/uL (3.8-10.6)
--- NOTE | 2021-05-29 18:29 | XR ---
EXAMINATION TYPE: XR chest 2V DATE OF EXAM: 05/29/2021 COMPARISON: 05/03/2021 HISTORY: Weakness TECHNIQUE: 2 views FINDINGS: Heart appears slightly enlarged.. Lungs are clear. Diaphragm is normal. Bony thorax is inta ct. IMPRESSION: No active cardiopulmonary disease.. No change.
[2021-05-29 18:41] LABS: HCG,Qualitative Serum Not Detected
[2021-05-29 18:44] LABS: ALT 25 U/L (4-34); AST 32 U/L (14-36); African American GFR (CKD) 10 (>60 ml/min/1.73 sqM); Alkaline Phosphatase 181 U/L (38-126); Anion Gap 18 mmol/L; Blood Urea Nitrogen 26 mg/dL (7-17); Calcium 10.5 mg/dL (8.4-10.2); Carbon Dioxide 29 mmol/L (22-30); Chloride 91 mmol/L (98-107); Glucose 147 mg/dL (74-99); Magnesium 2.3 mg/dL (1.6-2.3); Non-African American GFR(CKD) 9 (>60 ml/min/1.73 sqM); Sodium 138 mmol/L (137-145); Total Bilirubin 0.7 mg/dL (0.2-1.3); Total Protein 8.4 g/dL (6.3-8.2)
[2021-05-29 18:46] LABS: Potassium 3.6 mmol/L (3.5-5.1)
[2021-05-29 18:49] LABS: HGB 12.9 gm/dL (11.4-16.0)
[2021-05-29] MEDS ORDERED: PROCHLORPERAZINE INJ 10 MG/2 ML VIAL IVP STA (19:07)
[2021-05-29 19:08] LABS: Glucose,Whole Blood 72 mg/dL (75-99)
[2021-05-29] MEDS ORDERED: MORPHINE SULFATE 2 MG/ML SYRINGE IVP ONE (19:08)
[2021-05-29] MEDS ORDERED: DEXTROSE 50% SYRINGE 50 ML IVP STA (19:15)
[2021-05-29] MEDS ORDERED: PANTOPRAZOLE 40 MG/10 ML VIAL IVP STA (19:27)
[2021-05-29] MEDS ORDERED: ACETAMINOPHEN TAB 325 MG TAB PO PRN (19:29)
[2021-05-29] MEDS ORDERED: NALOXONE 0.4 MG/ML 1 ML VIAL IV PRN (19:29)
[2021-05-29] MEDS ORDERED: MORPHINE SULFATE 4 MG/ML SYRINGE IV PRN (19:29)
[2021-05-29] MEDS ORDERED: cefTRIAXone IN SWFI 1,000 MG/10 ML SYRINGE IVP STA (19:42)
[2021-05-29 20:07] LABS: Glucose,Whole Blood 63 mg/dL (75-99)
[2021-05-29] MEDS ORDERED: hydrALAZINE HCL 20 MG/ML 1 ML VIAL IVP PRN (20:09)
--- NOTE | 2021-05-29 20:37 | HP ---
HISTORY AND PHYSICAL CHIEF COMPLAINT: Nausea, vomiting, diarrhea and hypoglycemia. HISTORY OF PRESENT ILLNESS: This 30-year-old woman with a past medical history of multiple medical problems, CVA, TIA, history of hemodialysis, hypertension, history of kidney disease, history of section, being followed by Dr. Cruz in the outpatient setting was found to have severe hypoglycemia today after dialysis. The blood sugar was found to be 82, which is not improving despite Glucovance and the patient is also complaining of nausea, vomiting, diarrhea. The patient is unable to keep anything down and the patient admitted for further evaluation and treatment. There is no history of fever, rigors, chills at this time. PAST MEDICAL HISTORY: History of CVA, TIA, hemodialysis, hypertension, history of kidney disease. MEDICATIONS: Home medications are: Requip, Apresoline, Protonix, Imdur, Avapro, Lantus, Humalog, Lasix, Catapres, Norvasc, Lexapro. Dose, and other medications reviewed. ALLERGIES: FISH CONTAINING PRODUCTS AND IODINE. FAMILY HISTORY: History of cancer, hypertension, thyroid cancer, bipolar. SOCIAL HISTORY: No history of smoking. No history of alcohol intake. REVIEW OF SYSTEMS: ENT: No diminished vision. No diminished hearing. CARDIOVASCULAR system: No angina or palpitations. RESPIRATORY: As mentioned earlier. GI as mentioned earlier. : No dysuria. NERVOUS SYSTEM: No numbness or weakness. ALLERGY/IMMUNOLOGY: No asthma or hayfever. MUSCULOSKELETAL: As mentioned earlier. HEMATOLOGY/ONCOLOGY: No history of anemia. ENDOCRINE: As mentioned earlier. CONSTITUTIONAL: As mentioned earlier. DERMATOLOGY negative. RHEUMATOLOGY: Negative. PSYCHIATRY as mentioned earlier. PHYSICAL EXAMINATION: Alert and oriented times three. Pulse is 74. Blood pressure 179/96, respirations 16, temperature 97.8, pulse ox 98% on room air. HEENT: Conjunctivae normal. NECK: No JVD. CARDIOVASCULAR: S1, S2. RESPIRATION: Breath sounds diminished in the bases. A few scattered rhonchi. No crackles. ABDOMEN: Soft, nontender. No mass palpable. LEGS: No edema. No swelling. NERVOUS SYSTEM: Higher functions as mentioned. Moves all four limbs. No focal motor or sensory deficits. LYMPHATICS: No lymph nodes palpable in the neck, axillae or groin. SKIN: No ulcer, no rash and no bleeding. JOINTS: No active deforming arthropathy. LAB STUDIES: WBC 15.5. Potassium 3.6, sodium 147. ASSESSMENT: 1. Intractable nausea, vomiting, diarrhea, rule out sepsis. 2. Rule out Covid 19. 3. Hypoglycemia. 4. Chronic kidney disease stage 4 on hemodialysis. 5. Increased WBC. 6. History of cerebrovascular accident, transient ischemic attack. 7. Hypertension. 8. History of appendectomy. 9. History of bowel resection. 10.History of cholecystectomy. RECOMMENDATIONS AND DISCUSSION: In this 30-year-old woman who presented with multiple complex medical issues, we will monitor the patient closely, continue the current medications, management and symptomatic treatment. Monitor blood sugars closely. If the pressure is not coming up, D5 water drip. I would also recommend a CT scan of the abdomen and pelvis and empiric antibiotics. Cultures. Resume the home medications. Symptomatic treatment. Protonix. Nephrology evaluation. Prognosis guarded because of multiple complex medical issues. Further recommendations to follow. We will also check the Covid 19 test also. Prognosis guarded. Further recommendations to follow. A copy of dictation being forwarded to Dr. Cruz who is the primary physician. MMAUGUSTOL / CANDYN: [id number] /
--- NOTE | 2021-05-29 20:54 | XR ---
EXAMINATION TYPE: XR abdomen 2V DATE OF EXAM: 05/29/2021 COMPARISON: NONE HISTORY: Vomiting TECHNIQUE: 2 views upright and supine FINDINGS: There is a single loop of air-filled small bowel in the left upper quadrant. There is no ev idence of free air. There are clips from cholecystectomy. Lung bases are clear. There are no calcific ations over the kidneys. There is no evidence of free air. IMPRESSION: Possible small bowel ileus. No free air.
[2021-05-29] MEDS: PANTOPRAZOLE 40 MG/10 ML VIAL IVP SCH (21:44)
[2021-05-29] MEDS: DEXTROSE 5%-0.9% NACL 1,000 ML IV SCH (21:46)
[2021-05-29 21:49] LABS: Glucose,Whole Blood 193 mg/dL (75-99)
[2021-05-29 22:12] LABS: Glucose,Whole Blood 194 mg/dL (75-99)
[2021-05-29] MEDS ORDERED: METOCLOPRAMIDE 5 MG/ML 2 ML VIAL IVP PRN (22:23)
[2021-05-30 00:10] LABS: Glucose,Whole Blood 195 mg/dL (75-99)
[2021-05-30] MEDS: INSULIN ASPART (NovoLOG) 100 UNIT/ML VIAL SQ SCH ×4 (00:16→17:26)
[2021-05-30 06:02] LABS: Glucose,Whole Blood 80 mg/dL (75-99)
[2021-05-30 07:25] LABS: Anisocytosis Slight; Basophils # (A) 0.1 k/uL (0-0.2); Basophils % (A) 1 %; Eosinophils # (A) 0.2 k/uL (0-0.7); Eosinophils % (A) 4 %; HCT 37.5 % (34.0-46.0); HGB 12.2 gm/dL (11.4-16.0); Lymphocytes % (A) 17 %; MCH 29.4 pg (25.0-35.0); MCHC 32.5 g/dL (31.0-37.0); MCV 90.7 fL (80.0-100.0); Mean Platelet Volume 8.4; Monocytes # (A) 0.6 k/uL (0-1.0); Monocytes % (A) 11 %; Neutrophils # (A) 3.9 k/uL (1.3-7.7); Neutrophils % (A) 65 %; Platelet Count 272 k/uL (150-450); RBC 4.13 m/uL (3.80-5.40); RDW 16.3 % (11.5-15.5)
[2021-05-30] MEDS: amLODIPine 10 MG TAB PO SCH (07:27)
[2021-05-30] MEDS: carvediloL 12.5 MG TAB PO SCH ×2 (07:27→20:49)
[2021-05-30] MEDS: ASPIRIN 81 MG PO SCH (07:27)
[2021-05-30] MEDS: hydrALAZINE HCL 50 MG TAB PO SCH ×3 (07:28→21:03)
[2021-05-30] MEDS: FUROSEMIDE 40 MG TAB PO SCH ×2 (07:28→16:19)
[2021-05-30] MEDS: ESCITALOPRAM 20 MG TAB PO SCH (07:28)
[2021-05-30] MEDS: cloNIDine HCL 0.1 MG TAB PO SCH ×3 (07:28→21:03)
[2021-05-30] MEDS: PANTOPRAZOLE 40 MG/10 ML VIAL IVP SCH ×2 (07:29→20:51)
[2021-05-30] MEDS ORDERED: CALCIUM ACETATE 667 MG TAB PO SCH (07:30)
[2021-05-30] MEDS ORDERED: PANTOPRAZOLE 40 MG/10 ML VIAL IV SCH (09:00)
--- NOTE | 2021-05-30 09:26 | P.NPCON ---
History of Present Illness - Reason for Consult end stage renal disease - History of Present Illness Reason for consultation: End-stage renal disease History of present illness: Patient is a 30-year-old female seen in renal consultation for end-stage renal disease. She is maintained on hemodialysis on Monday schedule. Last hemodialysis was on Monday. Patient presented to the hospital with body aches as well as nausea and vomiting. Oral intake has been poor the last 2 days. She has been afebrile this admission. She is currently on room air. Denies cough. Chest x-ray showed no active cardial pulmonary disease. Abdominal x-ray showed possible ileus. She tested negative for coronavirus. Calcium is noted to be on the higher side and she does take PhosLo 2 tabs with each meal. White count was elevated on admission but is normal today. She denies chest pain or shortness of breath. No abdominal pain. No edema. Vital signs are stable. General: The patient appeared well nourished and normally developed. HEENT: Head exam is unremarkable. LUNGS: Breath sounds decreased. HEART: Rate and Rhythm are regular. ABDOMEN: Soft, no distention. EXTREMITITES: No edema. Past Medical History Past Medical History: CVA/TIA, Diabetes Mellitus, Dialysis, Hypertension Additional Past Medical History / Comment(s): Kidney disease History of Any Multi-Drug Resistant Organisms: None Reported Past Surgical History: Appendectomy, Section, Cholecystectomy Additional Past Surgical History / Comment(s): fistula left arm Past Anesthesia/Blood Transfusion Reactions: No Reported Reaction Past Psychological History: No Psychological Hx Reported Smoking Status: Never smoker Past Alcohol Use History: None Reported Past Drug Use History: None Reported - Past Family History Mother Family Medical History: Cancer, Hypertension Additional Family Medical History / Comment(s): Thyroid cancer, bipolar Father Additional Family Medical History / Comment(s): Epilepsy Medications and Allergies Home Medications Medication Instructions Recorded Confirmed Type Aspirin EC [Ecotrin Low Dose] 81 mg PO DAILY 04/03/21 05/29/21 History Carvedilol [Coreg] 25 mg PO BID 04/03/21 05/29/21 History Ergocalciferol (Vitamin D2) 1,250 mcg PO Q7D 04/03/21 05/29/21 History [Drisdol (50,000 Iu)] Furosemide [Lasix] 40 mg PO BID 04/03/21 05/29/21 History INSULIN LISPRO (HumaLOG) [humaLOG] See Protocol SQ AC-TID 04/03/21 05/29/21 History Insulin Glargine [Lantus Vial] 22 unit SQ DAILY 04/03/21 05/29/21 History Isosorbide Mononitrate ER [Imdur] 30 mg PO HS 04/03/21 05/29/21 History Pantoprazole Sodium [Protonix] 40 mg PO DAILY 04/03/21 05/29/21 History Acetaminophen Tab [Tylenol] 650 mg PO Q6HR PRN #30 tab 04/09/21 05/29/21 Rx amLODIPine [Norvasc] 10 mg PO DAILY 30 Days #30 tab 04/15/21 05/29/21 Rx cloNIDine HCL [Catapres] 0.3 mg PO TID 30 Days #90 tab 04/15/21 05/29/21 Rx Escitalopram [Lexapro] 20 mg PO DAILY 04/17/21 05/29/21 History Irbesartan [Avapro] 75 mg PO DAILY 04/17/21 05/29/21 History hydrALAZINE HCL [Apresoline] 100 mg PO TID 04/17/21 05/29/21 History rOPINIRole HCL [Requip] 0.5 mg PO HS 04/17/21 05/29/21 History Calcium Acetate [Phoslo] 1,334 mg PO AC-TID 05/29/21 05/29/21 History Glucagon Emergency Kit 1 mg IM ONCE PRN 05/29/21 05/29/21 History Allergies Allergy/AdvReac Type Severity Reaction Status Date / Time Fish Containing Products Allergy Rash/Hives Verified 05/29/21 19:41 [Fish] iodine Allergy Anaphylaxis Verified 05/29/21 19:41 Physical Exam Vitals: Vital Signs Temp Pulse Pulse Resp BP BP Pulse Ox 05/30/21 07:22 82 182/88 95 05/30/21 05:00 98.6 F 76 18 167/82 98 05/29/21 21:15 97.0 F L 71 18 137/75 100 05/29/21 20:30 71 18 168/84 99 05/29/21 16:49 97.8 F 74 16 179/96 96 Intake and Output 05/29/21 05/30/21 05/30/21 22:59 06:59 14:59 Intake Total 250 Balance 250 Intake: Oral 250 Other: # Voids 0 Weight 45.359 kg Results - Lab Results Most recent lab results Calcium 10.5 mg/dL (8.4-10.2) H 05/29/21 18:00 Magnesium 2.3 mg/dL (1.6-2.3) 05/29/21 18:00 05/30/21 06:47 05/29/21 18:00 Assessment and Plan Plan: Assessment: 1. End-stage renal disease maintained on hemodialysis on Monday schedule. 2. Nausea and vomiting. Possibly gastroenteritis. Improved. 3. Hypertension with chronic kidney disease. 4. Diabetes mellitus. 5. 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 6. Hypercalcemia secondary to PhosLo as well as component of volume contraction. Plan: Hemodialysis tomorrow. Stop PhosLo and add Renvela with meals. Home antihypertensives have been resumed. Thank you for the consultation. I will continue to follow the patient with you during her hospital stay
[2021-05-30 11:33] LABS: African American GFR (CKD) 8.9 (60.0-200.0); Anion Gap 19.3 mmol/L (10.00-18.00); BUN/Creat Ratio 3.85 Ratio (12.00-20.00); Blood Urea Nitrogen 25.4 mg/dL (9.0-27.0); Calcium 10.1 mg/dL (8.7-10.3); Carbon Dioxide 26.7 mmol/L (20.0-27.5); Non-African American GFR(CKD) 7.7 (60.0-200.0)
[2021-05-30 11:47] LABS: Glucose,Whole Blood 245 mg/dL (75-99)
[2021-05-30] MEDS: SEVELAMER 800 MG TAB PO SCH ×2 (12:35→17:49)
[2021-05-30] MEDS ORDERED: POTASSIUM CHLORIDE ER 20 MEQ TAB.ER PO STA (15:52)
[2021-05-30] MEDS ORDERED: INSULIN DETEMIR (LEVEMIR) 100 UNIT/ML SYR SQ SCH (16:45)
[2021-05-30 17:20] LABS: Glucose,Whole Blood 116 mg/dL (75-99)
[2021-05-30] MEDS: LOSARTAN 25 MG TAB PO SCH (17:49)
--- NOTE | 2021-05-30 17:58 | PN ---
PROGRESS NOTE DATE OF SERVICE: 05/30/2021. This 30-year-old woman was admitted with intractable nausea, vomiting, diarrhea, possibly acute gastroenteritis also suspected to have some sepsis. Covid 19 has been negative at this time. The patient is being treated symptomatically. Patient had hypokalemia. Nephrology is following the patient closely. Acetone is negative. Covid 19 is negative. White count is improved. Past medical history reviewed. REVIEW OF SYSTEMS: Cardiovascular system: No angina. Respiratory as mentioned earlier. GI as mentioned earlier. : No dysuria. Nervous system: No numbness or weakness. CURRENT MEDICATIONS: Reviewed and include: Tylenol, Norvasc, aspirin, Coreg, Rocephin, Catapres. Doses reviewed. PHYSICAL EXAMINATION: Patient is alert, oriented x3. Pulse is 74, blood pressure 141/70, respirations 16, temperature 97.9, pulse ox 94% on room air. HEENT: Conjunctivae normal. Neck: No JVD. Cardiovascular: S1, S2 muffled. Respiratory: Breath sounds diminished in the bases. A few scattered rhonchi. Abdomen: Soft, nontender. Legs are no edema. No swelling. LAB STUDIES: CBC within normal limits. Sodium 140, potassium 3 and creatinine is 6.6. Other labs are noted. ASSESSMENT: 1. Intractable nausea, vomiting, diarrhea, rule out sepsis. Cultures negative so far. 2. Covid 19- negative. 3. Hypoglycemia. 4. Chronic kidney disease stage 4 on hemodialysis. 5. Severe hypokalemia. 6. Increased WBC. 7. History of cerebrovascular accident/ transient ischemic attack. 8. Hypertension. 9. History of appendectomy. 10.History of bowel resection. 11.History of cholecystectomy. RECOMMENDATIONS AND DISCUSSION: Recommend to continue current medications, symptomatic treatment. Otherwise, closely follow with Nephrology. Cultures are negative and repeat labs will be arranged for tomorrow. Symptomatic treatment will be continued. Advance the diet if the patient is able to tolerate and further recommendations will follow. Potassium has been supplemented. We will check the labs tomorrow. MMODL / IJN: [id number] /
[2021-05-30 19:14] LABS: Amphetamine Screen,Urine Not Detected (NotDetected); Appearance,Urine Cloudy (Clear); Bacteria,Urine Many /hpf; Barbiturate Screen,Urine Not Detected (NotDetected); Benzodiazepines Screen,Urine Not Detected (NotDetected); Bilirubin,Urine Negative (Negative); Blood,Urine Negative (Negative); Cocaine Screen,Urine Not Detected (NotDetected); Color,Urine Yellow; Glucose,Urine (UA) 3+ (Negative); Ketones,Urine Negative (Negative); Leukocyte Esterase,Urine Small (Negative); Methadone Screen, Urine Not Detected (NotDetected); Mucus,Urine Rare /hpf; Nitrite,Urine Negative (Negative); Opiate Screen,Urine Detected (NotDetected); Oxycodone Screen, Urine Not Detected (NotDetected); Phencyclidine Screen,Urine Not Detected (NotDetected); Protein,Urine 3+ (Negative); RBC,Urine 1 /hpf (0-5); Specific Gravity,Urine 1.014 (1.001-1.035); Squamous Epithelial Cell,Urine 47 /hpf (0-4); Tricyclic Antidepressant,Urine Not Detected (NotDetected); Urn Cannabinoid Scrn Not Detected (NotDetected); Urobilinogen,Urine <2.0 mg/dL (<2.0); WBC,Urine 22 /hpf (0-5)
[2021-05-30 19:58] LABS: Glucose,Whole Blood 207 mg/dL (75-99)
[2021-05-30] MEDS: DEXTROSE 5%-0.9% NACL 1,000 ML IV SCH ×2 (20:50→21:05)
[2021-05-30] MEDS ORDERED: ISOSORBIDE MONONITRATE ER 30 MG TAB.ER.24H PO SCH (21:00)
[2021-05-31] MEDS: INSULIN ASPART (NovoLOG) 100 UNIT/ML VIAL SQ SCH ×3 (00:09→12:11)
[2021-05-31 00:19] LABS: Glucose,Whole Blood 169 mg/dL (75-99)
[2021-05-31 06:12] LABS: Glucose,Whole Blood 41 mg/dL (75-99)
[2021-05-31 06:12] LABS: Glucose,Whole Blood 42 mg/dL (75-99)
[2021-05-31] MEDS ORDERED: DEXTROSE 50% SYRINGE 50 ML IVP STA (06:15)
[2021-05-31 06:51] LABS: Glucose,Whole Blood 226 mg/dL (75-99)
--- NOTE | 2021-05-31 10:34 | P.PN ---
Subjective Patient is seen in follow-up for end-stage renal disease. She is making an hemodialysis on Monday schedule. No vomiting or diarrhea. Hemodynamically stable. No active complaints. Vital signs are stable. General: The patient appeared well nourished and normally developed. HEENT: Head exam is unremarkable. LUNGS: Breath sounds decreased. HEART: Rate and Rhythm are regular. ABDOMEN: Soft, no distention. EXTREMITITES: No edema. Objective - Vital Signs Vital signs: Vital Signs Temp 97.6 F 05/31/21 05:00 Pulse 67 05/31/21 05:00 Resp 18 05/31/21 05:00 BP 144/74 05/31/21 05:00 Pulse Ox 97 05/31/21 05:00 Intake & Output 05/30/21 05/31/21 05/31/21 18:59 06:59 18:59 Intake Total 900 650 Balance 900 650 Intake: Intake, IV Titration 900 50 Amount Dextrose 5%-0.9% NaCl 1, 900 000 ml @ 75 mls/hr IV . [id number] [facility] Rx#:[id number] cefTRIAXone 1 gm In 50 Sodium Chloride 0.9% 50 ml @ 100 mls/hr IVPB Q24H [facility] Rx#:[id number] Oral 600 Other: Voiding Method Toilet Toilet # Voids 1 0 - Labs CBC & Chem 7: 05/30/21 06:47 05/30/21 06:47 Labs: Abnormal Lab Results - Last 24 Hours (Table) 05/30/21 05/30/21 05/30/21 Range/Units 06:47 11:46 17:19 Potassium 3.0 L (3.5-5.5) mmol/L Chloride 94 L (96-109) mmol/L Anion Gap 19.30 H (10.00-18.00) mmol/L Creatinine 6.6 H (0.6-1.5) mg/dL Est GFR (CKD-EPI)AfAm 8.9 L (60.0-200.0) Est GFR (CKD-EPI)NonAf 7.7 L (60.0-200.0) BUN/Creatinine Ratio 3.85 L (12.00-20.00) Ratio POC Glucose (mg/dL) 245 H 116 H (75-99) mg/dL Urine Appearance (Clear) Urine Protein (Negative) Urine Glucose (UA) (Negative) Ur Leukocyte Esterase (Negative) Urine WBC (0-5) /hpf Ur Squamous Epith Cells (0-4) /hpf Urine Bacteria (None) /hpf Urine Mucus (None) /hpf Urine Opiates Screen (NotDetected) 05/30/21 05/30/21 05/30/21 Range/Units 18:30 18:30 19:48 Potassium (3.5-5.5) mmol/L Chloride (96-109) mmol/L Anion Gap (10.00-18.00) mmol/L Creatinine (0.6-1.5) mg/dL Est GFR (CKD-EPI)AfAm (60.0-200.0) Est GFR (CKD-EPI)NonAf (60.0-200.0) BUN/Creatinine Ratio (12.00-20.00) Ratio POC Glucose (mg/dL) 207 H (75-99) mg/dL Urine Appearance Cloudy H (Clear) Urine Protein 3+ H (Negative) Urine Glucose (UA) 3+ H (Negative) Ur Leukocyte Esterase Small H (Negative) Urine WBC 22 H (0-5) /hpf Ur Squamous Epith Cells 47 H (0-4) /hpf Urine Bacteria Many H (None) /hpf Urine Mucus Rare H (None) /hpf Urine Opiates Screen Detected H (NotDetected) 05/31/21 05/31/21 05/31/21 Range/Units 00:09 06:01 06:03 Potassium (3.5-5.5) mmol/L Chloride (96-109) mmol/L Anion Gap (10.00-18.00) mmol/L Creatinine (0.6-1.5) mg/dL Est GFR (CKD-EPI)AfAm (60.0-200.0) Est GFR (CKD-EPI)NonAf (60.0-200.0) BUN/Creatinine Ratio (12.00-20.00) Ratio POC Glucose (mg/dL) 169 H 41 L 42 L (75-99) mg/dL Urine Appearance (Clear) Urine Protein (Negative) Urine Glucose (UA) (Negative) Ur Leukocyte Esterase (Negative) Urine WBC (0-5) /hpf Ur Squamous Epith Cells (0-4) /hpf Urine Bacteria (None) /hpf Urine Mucus (None) /hpf Urine Opiates Screen (NotDetected) 05/31/21 Range/Units 06:49 Potassium (3.5-5.5) mmol/L Chloride (96-109) mmol/L Anion Gap (10.00-18.00) mmol/L Creatinine (0.6-1.5) mg/dL Est GFR (CKD-EPI)AfAm (60.0-200.0) Est GFR (CKD-EPI)NonAf (60.0-200.0) BUN/Creatinine Ratio (12.00-20.00) Ratio POC Glucose (mg/dL) 226 H (75-99) mg/dL Urine Appearance (Clear) Urine Protein (Negative) Urine Glucose (UA) (Negative) Ur Leukocyte Esterase (Negative) Urine WBC (0-5) /hpf Ur Squamous Epith Cells (0-4) /hpf Urine Bacteria (None) /hpf Urine Mucus (None) /hpf Urine Opiates Screen (NotDetected) Microbiology - Last 24 Hours (Table) 05/30/21 18:30 Urine Culture - Preliminary Urine,Voided 05/29/21 19:58 Blood Culture - Preliminary Blood No Growth after 24 hours Assessment and Plan Plan: Assessment: 1. End-stage renal disease maintained on hemodialysis on Monday Fr schedule. 2. Nausea and vomiting. Possibly gastroenteritis. Improved. 3. Hypertension with chronic kidney disease. Stable. 4. Diabetes mellitus. 5. 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 6. Hypercalcemia secondary to PhosLo as well as component of volume contr action. Improved. Plan: Hemodialysis today. Maintain Renvela with meals. Hep-Lock IV fluids.
[2021-05-31 11:18] LABS: Glucose,Whole Blood 85 mg/dL (75-99)
[2021-05-31 11:42] LABS: Anisocytosis Slight; Basophils % (A) 1 %; Eosinophils # (A) 0.3 k/uL (0-0.7); Eosinophils % (A) 7 %; HCT 37.1 % (34.0-46.0); HGB 12.2 gm/dL (11.4-16.0); Lymphocytes # (A) 1.1 k/uL (1.0-4.8); Lymphocytes % (A) 22 %; MCH 30.1 pg (25.0-35.0); MCV 91.4 fL (80.0-100.0); Mean Platelet Volume 8.3; Monocytes # (A) 0.4 k/uL (0-1.0); Monocytes % (A) 7 %; Neutrophils % (A) 63 %; Platelet Count 243 k/uL (150-450); RBC 4.06 m/uL (3.80-5.40); RDW 16.4 % (11.5-15.5); WBC 4.9 k/uL (3.8-10.6)
[2021-05-31 11:53] LABS: African American GFR (CKD) 18 (>60 ml/min/1.73 sqM); Anion Gap 11 mmol/L; Blood Urea Nitrogen 12 mg/dL (7-17); Calcium 9.1 mg/dL (8.4-10.2); Carbon Dioxide 28 mmol/L (22-30); Chloride 97 mmol/L (98-107); Glucose 92 mg/dL (74-99); Non-African American GFR(CKD) 16 (>60 ml/min/1.73 sqM); Potassium 2.9 mmol/L (3.5-5.1); Sodium 136 mmol/L (137-145)
[2021-05-31] MEDS: PANTOPRAZOLE 40 MG/10 ML VIAL IVP SCH (12:09)
[2021-05-31] MEDS: hydrALAZINE HCL 50 MG TAB PO SCH (12:10)
[2021-05-31] MEDS: SEVELAMER 800 MG TAB PO SCH ×2 (12:10→12:56)
[2021-05-31] MEDS: cloNIDine HCL 0.1 MG TAB PO SCH (12:11)
[2021-05-31] MEDS ORDERED: Potassium Replacement Protocol 1 EACH MISC MISCELLANE PRN (12:13)
[2021-05-31] MEDS: POTASSIUM CHLORIDE ER 20 MEQ TAB.ER PO SCH ×3 (12:52→13:41)
[2021-05-31] MEDS: ESCITALOPRAM 20 MG TAB PO SCH (12:57)
[2021-05-31] MEDS: ASPIRIN 81 MG PO SCH (12:57)
[2021-05-31] MEDS: amLODIPine 10 MG TAB PO SCH (13:02)
[2021-05-31] MEDS: FUROSEMIDE 40 MG TAB PO SCH (13:02)
[2021-05-31] MEDS: carvediloL 12.5 MG TAB PO SCH (13:02)
[2021-05-31] MEDS: LOSARTAN 25 MG TAB PO SCH (13:03)
[2021-05-31 13:43] VITALS: BP 164/85; PULSE 67; RESP 20; TEMP 98
[2021-05-31 13:52] VITALS: BMI 17.2
[2021-05-31] MEDS ORDERED: INSULIN DETEMIR (LEVEMIR) 100 UNIT/ML SYR SQ SCH (21:00)
--- NOTE | 2021-05-31 23:27 | DS ---
DISCHARGE SUMMARY FINAL DIAGNOSES: 1. Intractable nausea, vomiting, diarrhea, sepsis ruled out. Cultures are negative, improved, possible acute gastritis. 2. Covid 19 negative. 3. Hypoglycemia, improved. 4. Chronic kidney stage 4 on hemodialysis. 5. Severe hypokalemia. 6. Increased WBC. 7. History of cerebrovascular accident/transient ischemic attack. 8. Hypertension. 9. History of appendectomy. 10.History of bowel resection. 11.History of cholecystectomy. DISCHARGE DISPOSITION: The patient will be discharged in stable condition with guarded prognosis. HISTORY OF PRESENT ILLNESS: This 30-year-old woman with past medical history of multiple medical problems admitted with nausea, vomiting, multiple other features. Initially sepsis suspected. Cultures are negative. Symptomatic treatment and the patient improved significantly. On exam, vitals stable. Cardiovascular: S1, S2. Respiratory: Breath sounds diminished in the bases. Nervous System: No focal deficits. DISCHARGE ADVICE AND MEDICATIONS: 1. Diet is cardiac diet. 2. Activity limited until followup. 3. Follow up with Dr. Cruz in 2 to 3 days. 4. Follow up with dialysis, Nephrology as recommended. MEDICATIONS: 1. Apresoline 100 mg p.o. t.i.d. 2. Avapro 75 mg p.o. daily. 3. Coreg 25 mg p.o. b.i.d. 4. Vitamin D2 1.25 mg p.o. as before. 5. Ecotrin 81 mg p.o. daily. 6. Glucovance. 7. Lispro as before. 8. Isosorbide mononitrate 30 mg q.h.s. 9. Lasix 40 mg p.o. b.i.d. 10.Lexapro 20 mg daily. 11.Protonix 40 mg p.o. b.i.d. 12.Requip 0.5 mg q.h.s. 13.Catapres 0.3 mg p.o. t.i.d. 14.Ceftin 250 mg p.o. b.i.d. for 3 days please also. 15.Lantus 15 units subcu daily. 16.Norvasc 10 mg p.o. daily. 17.Renvela 800 mg p.o. daily. 18.Tylenol p.r.n. 19.Probable sepsis with cultures are negative. MMODL / IJN: [id number] /
== END 2021-05-31 14:35 | disposition home or self-care (01) ==
LOC: EC 16:46 → 5NMEDONC 19:29
PROVIDERS: ADMIT Hospitalist; ATTEND Hospitalist
DX: E10.649 Type 1 diabetes mellitus with hypoglycemia without coma (principal); I12.0 Hypertensive chronic kidney disease with stage 5 chronic kidney disease or end stage renal disease; E10.22 Type 1 diabetes mellitus with diabetic chronic kidney disease; N18.6 End stage renal disease; E87.6 Hypokalemia; Z99.2 Dependence on renal dialysis; R19.7 Diarrhea, unspecified; Z20.822 Contact with and (suspected) exposure to COVID-19; Z90.49 Acquired absence of other specified parts of digestive tract; E86.0 Dehydration; Z98.891 History of uterine scar from previous surgery; E83.52 Hypercalcemia; M89.8X9 Other specified disorders of bone, unspecified site; Z79.4 Long term (current) use of insulin; Z79.82 Long term (current) use of aspirin; Z79.899 Other long term (current) drug therapy; Z91.013 Allergy to seafood; Z91.048 Other nonmedicinal substance allergy status; Z86.73 Personal history of transient ischemic attack (TIA), and cerebral infarction without residual deficits; Z80.8 Family history of malignant neoplasm of other organs or systems; Z82.0 Family history of epilepsy and other diseases of the nervous system; Z82.49 Family history of ischemic heart disease and other diseases of the circulatory system
CPT/HCPCS: 99285; 96376 ×3; 96361 ×2; 96365; 96375; 36415; 93005; 80053; 80048; 82009; 83605; 83735; 84484; 85025 ×2; 81001; 84703; 87040; 80306; 87086; 87635; 71046; 74019; G0257; G0378 ×3; J2270 ×2; J1200; J0780; J2765; J0696 ×2; C9113 ×2; 90935

== ENCOUNTER 2021-06-03 06:12 | Observation (INO) | payer MEDICARE ==
[2021-06-03] MEDS ORDERED: hydrALAZINE HCL 20 MG/ML 1 ML VIAL IVP STA ×2 (06:32→09:09)
[2021-06-03] MEDS ORDERED: LORazepam 2 MG/ML INJ IV STA (06:39)
[2021-06-03] MEDS ORDERED: METOCLOPRAMIDE 5 MG/ML 2 ML VIAL IVP STA (06:39)
[2021-06-03] MEDS ORDERED: diphenhydrAMINE 50 MG/ML 1 ML VIAL IVP STA (06:39)
[2021-06-03 06:57] LABS: Anisocytosis Slight; Basophils % (A) 1 %; Eosinophils # (A) 0.1 k/uL (0-0.7); Eosinophils % (A) 1 %; HCT 41.9 % (34.0-46.0); HGB 13.6 gm/dL (11.4-16.0); Lymphocytes # (A) 0.9 k/uL (1.0-4.8); Lymphocytes % (A) 12 %; MCH 30.5 pg (25.0-35.0); MCHC 32.4 g/dL (31.0-37.0); MCV 94.2 fL (80.0-100.0); Mean Platelet Volume 8.7; Monocytes # (A) 0.4 k/uL (0-1.0); Monocytes % (A) 5 %; Neutrophils # (A) 5.9 k/uL (1.3-7.7); Neutrophils % (A) 80 %; Platelet Count 302 k/uL (150-450); RBC 4.44 m/uL (3.80-5.40); WBC 7.4 k/uL (3.8-10.6)
[2021-06-03 07:06] LABS: Partial Thromboplastin Time 22.4 sec (22.0-30.0); Prothrombin Time 10.3 sec (9.0-12.0)
--- NOTE | 2021-06-03 07:13 | ED ---
General Adult HPI - General Chief complaint: Chest Pain Stated complaint: Chest Pain Time Seen by Provider: 06/03/21 06:14 Source: patient, EMS, RN notes reviewed Mode of arrival: EMS Limitations: no limitations - History of Present Illness Initial comments: 30-year-old female presents emergency Department chief complaint of nausea vomiting chest discomfort. Patient states that she's been vomiting throughout the night, complaining of discomfort in her abdomen and chest. She states started after dialysis last night. Patient states that she goes Monday and Monday. Patient states that she is unable take her blood pressure medications morning. Patient does admit that she's had multiple recent hospitalizations. Patient denies fevers chills no cough or cold-like symptoms. Patient states that she ate does have underlying diabetes, hypertension. Patient was given nitroglycerin and aspirin by EMS. Patient states she feels of vomiting was causing her chest discomfort. - Related Data Home Medications Medication Instructions Recorded Confirmed RX: Aspirin EC [Ecotrin Low Dose] 81 mg PO DAILY 04/03/21 06/03/21 RX: Carvedilol [Coreg] 25 mg PO BID 04/03/21 06/03/21 RX: Ergocalciferol (Vitamin D2) 1,250 mcg PO COPELAND 04/03/21 06/03/21 [Drisdol (50,000 Iu)] RX: Furosemide [Lasix] 40 mg PO BID 04/03/21 06/03/21 RX: INSULIN LISPRO (HumaLOG) See Protocol SQ AC-TID 04/03/21 06/03/21 [humaLOG] RX: Isosorbide Mononitrate ER 30 mg PO HS 04/03/21 06/03/21 [Imdur] RX: Escitalopram [Lexapro] 20 mg PO DAILY 04/17/21 06/03/21 RX: Irbesartan [Avapro] 75 mg PO DAILY 04/17/21 06/03/21 RX: hydrALAZINE HCL [Apresoline] 100 mg PO TID 04/17/21 06/03/21 RX: rOPINIRole HCL [Requip] 0.5 mg PO HS 04/17/21 06/03/21 RX: Glucagon Emergency Kit 1 mg IM ONCE PRN 05/29/21 06/03/21 Previous Rx's Medication Instructions Recorded RX: Acetaminophen Tab [Tylenol] 650 mg PO Q6HR PRN #30 tab 04/09/21 RX: amLODIPine [Norvasc] 10 mg PO DAILY 30 Days #30 tab 04/15/21 RX: cloNIDine HCL [Catapres] 0.3 mg PO TID 30 Days #90 tab 04/15/21 Cefuroxime [Ceftin] 250 mg PO BID 3 Days #6 tab 05/31/21 RX: Insulin Glargine [Lantus Vial] 15 unit SQ DAILY #0 05/31/21 RX: Sevelamer [Renvela] 800 mg PO TID-W/MEALS 30 Days #90 05/31/21 tab Allergies Allergy/AdvReac Type Severity Reaction Status Date / Time Fish Containing Products Allergy Rash/Hives Verified 06/03/21 07:44 [Fish] iodine Allergy Anaphylaxis Verified 06/03/21 07:44 Review of Systems ROS Statement: Those systems with pertinent positive or pertinent negative responses have been documented in the HPI. ROS Other: All systems not noted in ROS Statement are negative. Past Medical History Past Medical History: CVA/TIA, Dialysis, Hypertension Additional Past Medical History / Comment(s): Kidney disease History of Any Multi-Drug Resistant Organisms: None Reported Past Surgical History: Appendectomy, Section, Cholecystectomy Additional Past Surgical History / Comment(s): fistula left arm Past Anesthesia/Blood Transfusion Reactions: No Reported Reaction Past Psychological History: No Psychological Hx Reported Smoking Status: Never smoker Past Alcohol Use History: None Reported Past Drug Use History: None Reported - Past Family History Mother Family Medical History: Cancer, Hypertension Additional Family Medical History / Comment(s): Thyroid cancer, bipolar Father Additional Family Medical History / Comment(s): Epilepsy General Exam Limitations: no limitations General appearance: alert, in no apparent distress Head exam: Present: atraumatic, normocephalic, normal inspection Neck exam: Present: normal inspection, full ROM. Absent: tenderness, meningismus, lymphadenopathy Respiratory exam: Present: normal lung sounds bilaterally. Absent: respiratory distress, wheezes, rales, rhonchi, stridor Cardiovascular Exam: Present: normal rhythm, tachycardia, normal heart sounds. Absent: systolic murmur, diastolic murmur, rubs, gallop, clicks GI/Abdominal exam: Present: soft, tenderness, normal bowel sounds. Absent: distended, guarding, rebound, rigid Neurological exam: Present: alert, oriented X3 Skin exam: Present: warm, dry, intact, normal color. Absent: rash Course Vital Signs 06/03/21 06/03/21 06/03/21 06:13 07:18 08:16 Temperature 98.6 F Pulse Rate 107 H 101 H 104 H Respiratory 16 16 18 Rate Blood Pressure 220/127 233/112 215/113 O2 Sat by Pulse 97 98 98 Oximetry Medical Decision Making - Medical Decision Making 30-year-old presented for nausea vomiting chest discomfort. Patient's found to have hyperglycemia with blood sugar 753, bicarb is 25 with a gap of 18. Patient has chronic renal disease on dialysis prescription for 0.98. Patient's found to have elevated troponin at 0.113 an elevated BMP. Patient's had no prior elevated troponin that was started on heparin, insulin drip with consult to nephrology, cardiology. patient did has hypertension patient given multiple doses of blood pressure medication. - Lab Data Result diagrams: 06/03/21 06:36 06/03/21 06:36 Lab Results 06/03/21 06/03/21 06/03/21 Range/Units 06:36 06:36 06:36 WBC 7.4 (3.8-10.6) k/uL RBC 4.44 (3.80-5.40) m/uL Hgb 13.6 (11.4-16.0) gm/dL Hct 41.9 (34.0-46.0) % MCV 94.2 (80.0-100.0) fL MCH 30.5 (25.0-35.0) pg MCHC 32.4 (31.0-37.0) g/dL RDW 17.0 H (11.5-15.5) % Plt Count 302 (150-450) k/uL MPV 8.7 Neutrophils % 80 % Lymphocytes % 12 % Monocytes % 5 % Eosinophils % 1 % Basophils % 1 % Neutrophils # 5.9 (1.3-7.7) k/uL Lymphocytes # 0.9 L (1.0-4.8) k/uL Monocytes # 0.4 (0-1.0) k/uL Eosinophils # 0.1 (0-0.7) k/uL Basophils # 0.0 (0-0.2) k/uL Anisocytosis Slight PT 10.3 (9.0-12.0) sec INR 1.0 (<1.2) APTT 22.4 (22.0-30.0) sec Sodium 131 L (137-145) mmol/L Potassium 4.6 (3.5-5.1) mmol/L Chloride 88 L (98-107) mmol/L Carbon Dioxide 25 (22-30) mmol/L Anion Gap 18 mmol/L BUN 16 (7-17) mg/dL Creatinine 4.98 H (0.52-1.04) mg/dL Est GFR (CKD-EPI)AfAm 12 (>60 ml/min/1.73 sqM) Est GFR (CKD-EPI)NonAf 11 (>60 ml/min/1.73 sqM) Glucose 753 H* (74-99) mg/dL Calcium 9.9 (8.4-10.2) mg/dL Magnesium 2.0 (1.6-2.3) mg/dL Total Bilirubin 1.3 (0.2-1.3) mg/dL AST 39 H (14-36) U/L ALT 71 H (4-34) U/L Alkaline Phosphatase 311 H (38-126) U/L Troponin I (0.000-0.034) ng/mL NT-Pro-B Natriuret Pep pg/mL Total Protein 8.2 (6.3-8.2) g/dL Albumin 5.1 H (3.5-5.0) g/dL Lipase 365 H (23-300) U/L 06/03/21 06/03/21 Range/Units 06:36 06:36 WBC (3.8-10.6) k/uL RBC (3.80-5.40) m/uL Hgb (11.4-16.0) gm/dL Hct (34.0-46.0) % MCV (80.0-100.0) fL MCH (25.0-35.0) pg MCHC (31.0-37.0) g/dL RDW (11.5-15.5) % Plt Count (150-450) k/uL MPV Neutrophils % % Lymphocytes % % Monocytes % % Eosinophils % % Basophils % % Neutrophils # (1.3-7.7) k/uL Lymphocytes # (1.0-4.8) k/uL Monocytes # (0-1.0) k/uL Eosinophils # (0-0.7) k/uL Basophils # (0-0.2) k/uL Anisocytosis PT (9.0-12.0) sec INR (<1.2) APTT (22.0-30.0) sec Sodium (137-145) mmol/L Potassium (3.5-5.1) mmol/L Chloride (98-107) mmol/L Carbon Dioxide (22-30) mmol/L Anion Gap mmol/L BUN (7-17) mg/dL Creatinine (0.52-1.04) mg/dL Est GFR (CKD-EPI)AfAm (>60 ml/min/1.73 sqM) Est GFR (CKD-EPI)NonAf (>60 ml/min/1.73 sqM) Glucose (74-99) mg/dL Calcium (8.4-10.2) mg/dL Magnesium (1.6-2.3) mg/dL Total Bilirubin (0.2-1.3) mg/dL AST (14-36) U/L ALT (4-34) U/L Alkaline Phosphatase (38-126) U/L Troponin I 0.113 H* (0.000-0.034) ng/mL NT-Pro-B Natriuret Pep 34798 pg/mL Total Protein (6.3-8.2) g/dL Albumin (3.5-5.0) g/dL Lipase (23-300) U/L Critical Care Time Critical Care Time: Yes Total Critical Care Time: 35 Disposition Clinical Impression: Vomiting, Hypertensive emergency, ESRD (end stage renal disease) on dialysis, H yperglycemia, Transaminitis Disposition: ADMITTED IP TO THIS [facility] Condition: Serious Referrals: Edith Cruz MD [Primary Care Provider] - 1-2 days
--- NOTE | 2021-06-03 07:20 | XR ---
EXAMINATION TYPE: XR chest 2V DATE OF EXAM: 06/03/2021 COMPARISON: Chest x-ray 5 days ago HISTORY: Chest pain. TECHNIQUE: Frontal and lateral views of the chest are obtained. FINDINGS: There is no suspicious new focal air space opacity, pleural effusion, or pneumothorax seen . The cardiac silhouette size remains within normal limits. The osseous structures are intact. Ove rlying EKG leads current study. Cholecystectomy clips redemonstrated on lateral view. IMPRESSION: No acute process. No significant change from prior.
[2021-06-03 07:21] LABS: Albumin 5.1 g/dL (3.5-5.0); Calcium 9.9 mg/dL (8.4-10.2); Total Bilirubin 1.3 mg/dL (0.2-1.3); Total Protein 8.2 g/dL (6.3-8.2)
[2021-06-03] MEDS ORDERED: cloNIDine HCL 0.1 MG TAB PO STA (07:23)
[2021-06-03] MEDS ORDERED: HYDROmorphone 1 MG/ML 1 ML SYRINGE IVP STA (07:29)
[2021-06-03 07:51] LABS: Potassium 4.6 mmol/L (3.5-5.1)
[2021-06-03] MEDS ORDERED: INSULIN REGULAR BOLUS (FROM DRIP BAG) IV ONE (08:33)
[2021-06-03] MEDS ORDERED: HEPARIN SODIUM 1,000 UN/ML (10ML VL) IV ONE (08:36)
[2021-06-03] MEDS ORDERED: HEPARIN SODIUM 1,000 UN/ML (10ML VL) IV PRN (08:36)
[2021-06-03] MEDS ORDERED: ACETAMINOPHEN TAB 325 MG TAB PO PRN ×2 (08:46→08:49)
[2021-06-03] MEDS ORDERED: NALOXONE 0.4 MG/ML 1 ML VIAL IV PRN (08:46)
[2021-06-03] MEDS ORDERED: hydrALAZINE HCL 20 MG/ML 1 ML VIAL IVP PRN (08:49)
[2021-06-03] MEDS ORDERED: INSULIN REGULAR 100 UNIT in SODIUM CHLORIDE 0.9% 100 ML IV SCH (09:00)
[2021-06-03 09:03] LABS: Glucose,Whole Blood >600 mg/dL (75-99)
[2021-06-03] MEDS: HEPARIN SOD,PORK IN 0.45% NACL 25,000 UNIT in 0.45% NACL 1 250ML.BAG IV SCH (09:13)
[2021-06-03] MEDS: hydrALAZINE HCL 50 MG TAB PO SCH ×3 (09:18→20:57)
[2021-06-03] MEDS: amLODIPine 10 MG TAB PO SCH (09:22)
[2021-06-03] MEDS: cloNIDine HCL 0.1 MG TAB PO SCH ×3 (09:22→20:58)
[2021-06-03] MEDS: carvediloL 12.5 MG TAB PO SCH ×2 (09:23→20:58)
[2021-06-03] MEDS: FUROSEMIDE 40 MG TAB PO SCH ×2 (09:23→17:02)
[2021-06-03] MEDS: LOSARTAN 25 MG TAB PO SCH (09:23)
[2021-06-03 10:02] LABS: Glucose,Whole Blood >600 mg/dL (75-99)
--- NOTE | 2021-06-03 10:24 | P.NPCON ---
History of Present Illness - Reason for Consult end stage renal disease - History of Present Illness Reason for consultation: End-stage renal disease History of present illness: Patient is a 30-year-old female seen in renal consultation for end-stage renal disease. Patient was seen and examined in the emergency room. She is maintained on hemodialysis on Monday schedule. Last dialysis was yesterday. Patient presented to the hospital with nausea and vomiting which occurred throughout the night. She admits to abdominal discomfort. Also admits to diarrhea. She has not been able to keep her medications down. Blood pressure over 200 systolic on admission. No fever. She is on room air. Patient is falling asleep but she speaks. Not providing much history. Vital signs - blood pressure high. HEENT: Head exam is unremarkable. LUNGS: Breath sounds decreased. HEART: Rate and Rhythm are regular. ABDOMEN: Soft, no distention. EXTREMITITES: No edema. Past Medical History Past Medical History: CVA/TIA, Dialysis, Hypertension Additional Past Medical History / Comment(s): Kidney disease History of Any Multi-Drug Resistant Organisms: None Reported Past Surgical History: Appendectomy, Section, Cholecystectomy Additional Past Surgical History / Comment(s): fistula left arm Past Anesthesia/Blood Transfusion Reactions: No Reported Reaction Past Psychological History: No Psychological Hx Reported Smoking Status: Never smoker Past Alcohol Use History: None Reported Past Drug Use History: None Reported - Past Family History Mother Family Medical History: Cancer, Hypertension Additional Family Medical History / Comment(s): Thyroid cancer, bipolar Father Additional Family Medical History / Comment(s): Epilepsy Medications and Allergies Home Medications Medication Instructions Recorded Confirmed Type Aspirin EC [Ecotrin Low Dose] 81 mg PO DAILY 04/03/21 06/03/21 History Carvedilol [Coreg] 25 mg PO BID 04/03/21 06/03/21 History Ergocalciferol (Vitamin D2) 1,250 mcg PO COPELAND 04/03/21 06/03/21 History [Drisdol (50,000 Iu)] Furosemide [Lasix] 40 mg PO BID 04/03/21 06/03/21 History INSULIN LISPRO (HumaLOG) [humaLOG] See Protocol SQ AC-TID 04/03/21 06/03/21 History Isosorbide Mononitrate ER [Imdur] 30 mg PO HS 04/03/21 06/03/21 History Acetaminophen Tab [Tylenol] 650 mg PO Q6HR PRN #30 tab 04/09/21 06/03/21 Rx amLODIPine [Norvasc] 10 mg PO DAILY 30 Days #30 tab 04/15/21 06/03/21 Rx cloNIDine HCL [Catapres] 0.3 mg PO TID 30 Days #90 tab 04/15/21 06/03/21 Rx Escitalopram [Lexapro] 20 mg PO DAILY 04/17/21 06/03/21 History Irbesartan [Avapro] 75 mg PO DAILY 04/17/21 06/03/21 History hydrALAZINE HCL [Apresoline] 100 mg PO TID 04/17/21 06/03/21 History rOPINIRole HCL [Requip] 0.5 mg PO HS 04/17/21 06/03/21 History Glucagon Emergency Kit 1 mg IM ONCE PRN 05/29/21 06/03/21 History Cefuroxime [Ceftin] 250 mg PO BID 3 Days #6 tab 05/31/21 06/03/21 Rx Insulin Glargine [Lantus Vial] 15 unit SQ DAILY #0 05/31/21 06/03/21 Rx Sevelamer [Renvela] 800 mg PO TID-W/MEALS 30 Days #90 05/31/21 06/03/21 Rx tab Allergies Allergy/AdvReac Type Severity Reaction Status Date / Time Fish Containing Products Allergy Rash/Hives Verified 06/03/21 07:44 [Fish] iodine Allergy Anaphylaxis Verified 06/03/21 07:44 Physical Exam Vitals: Vital Signs Temp Pulse Resp BP Pulse Ox 06/03/21 09:49 105 H 20 202/108 96 06/03/21 09:01 105 H 16 222/111 95 06/03/21 08:16 104 H 18 215/113 98 06/03/21 07:18 101 H 16 233/112 98 06/03/21 06:13 98.6 F 107 H 16 220/127 97 Intake and Output 06/02/21 06/03/21 06/03/21 22:59 06:59 14:59 Intake Total 3.665 Balance 3.665 Intake: Intake, IV Titration 3.665 Amount Insulin Regular 100 unit 3.665 In Sodium Chloride 0.9% 100 ml @ 0.1 UNITS/KG/HR 4.581 mls/hr IV .[id number] [facility] Rx#:[id number] Other: Weight 45.359 kg Results - Lab Results Most recent lab results Calcium 9.9 mg/dL (8.4-10.2) 06/03/21 06:36 Magnesium 2.0 mg/dL (1.6-2.3) 06/03/21 06:36 06/03/21 06:36 06/03/21 06:36 Assessment and Plan Plan: Assessment: 1. End-stage renal disease maintained on hemodialysis on Monday schedule. 2. Nausea and vomiting due to gastroparesis versus gastroenteritis. 3. Hypertensive urgency exacerbated by vomiting and unable to keep medications down. 4. Diabetes mellitus. Uncontrolled. Blood sugar over 750 on admission. 5. 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 Plan: Hemodialysis tomorrow. Home antihypertensives resumed. Also on heparin drip for chest discomfort. Cardiology following. Thank you for the consultation. I will continue to follow the patient with you during her hospital stay.
[2021-06-03 11:13] LABS: Glucose,Whole Blood >600 mg/dL (75-99)
[2021-06-03] MEDS: PANTOPRAZOLE 40 MG/10 ML VIAL IVP SCH ×2 (11:40→20:56)
[2021-06-03 12:08] LABS: Glucose,Whole Blood 433 mg/dL (75-99)
[2021-06-03] MEDS: SEVELAMER 800 MG TAB PO SCH ×2 (12:35→20:55)
[2021-06-03] MEDS: METOCLOPRAMIDE 5 MG/ML 2 ML VIAL IVP SCH ×2 (12:35→20:57)
--- NOTE | 2021-06-03 12:38 | P.CRDCN ---
History of Present Illness Consult date: 06/03/21 History of present illness: HISTORY OF PRESENT ILLNESS: This is a 30 year old female with a past medical history significant for end- stage renal disease on hemodialysis, blindness, hypertension, and diabetes Patient does not follow with a professional advisor. We have been asked to see the patient in consultation for abnormal troponins. Patient examined at the bedside. She is lethargic and unable to provide much history. According to the patient's nurse, the patient came into the hospital due to nausea and vomiting. She has been unable to take her medications for the past few days because of this. The patient was complaining of some chest pain when she first came to the emergency room. However she is chest pain-free at this time. She denies any shortness of breath. The patient's blood pressure was elevated upon admission but has improved since receiving her home and hypertensive medications. The patient is also on an insulin drip as her blood sugars are in the 700s. EKG reveals sinus tachycardia with nonspecific ST-T wave changes Chest xray no acute process Laboratory data: WBC 7.4. Hemoglobin 13.6. Platelet count 302. Sodium 131. Potassium 4.6. BUN 16. Creatinine 4.98. Glucose 753. ProBNP 48,200. Troponin 0.113. 0.080. Current home cardiac medications include hydralazine 100 mg 3 times a day, Catapres 0.3 mg 3 times a day, amlodipine 10 mg daily, Imdur 30 mg at night, Lasix 40 mg twice a day, carvedilol 25,000,000 g twice a day, aspirin 81 mg daily Most recent echocardiogram obtained in March 2021 revealed ejection fraction 55-60%, mild aortic stenosis, moderate tricuspid regurgitation, moderate pulmonary hypertension REVIEW OF SYSTEMS: At the time of my exam: Unable to obtain thorough review of systems secondary to lethargy. PHYSICAL EXAM: VITAL SIGNS: Reviewed. GENERAL: Well-developed in no acute distress. HEENT: Head is normocephalic. Pupils are equal, round. Sclerae anicteric. Mucous membranes of the mouth are moist. Neck supple. No JVD or thyromegaly LUNGS: Respirations even and unlabored. Lungs essentially clear to auscultation bilaterally. HEART: Regular rate and rhythm. S1 and S2 heard. + systolic murmur noted. ABDOMEN: Soft. Nondistended. Nontender. EXTREMITIES: Normal range of motion. No clubbing or cyanosis. Peripheral pulses intact. No lower extremity edema NEUROLOGIC: Awake and alert. Oriented x 3. ASSESSMENT: Nausea and vomiting End-stage renal disease on hemodialysis Abnormal troponins, secondary to chronic kidney disease, not indicative of acute coronary syndrome Hypertensive urgency Diabetes Hyperglycemia, BS 700s PLAN: No need to repeat echocardiogram Continue IV heparin for additional [address] Downs Resume home cardiac medications Monitor blood pressure Further recommendations pending patient course Nurse practitioner note has been reviewed by physician. Signing provider agrees with the documented findings, assessment, and plan of care. Past Medical History Past Medical History: CVA/TIA, Dialysis, Hypertension Additional Past Medical History / Comment(s): Kidney disease History of Any Multi-Drug Resistant Organisms: None Reported Past Surgical History: Appendectomy, Section, Cholecystectomy Additional Past Surgical History / Comment(s): fistula left arm Past Anesthesia/Blood Transfusion Reactions: No Reported Reaction Past Psychological History: No Psychological Hx Reported Smoking Status: Never smoker Past Alcohol Use History: None Reported Past Drug Use History: None Reported - Past Family History Mother Family Medical History: Cancer, Hypertension Additional Family Medical History / Comment(s): Thyroid cancer, bipolar Father Additional Family Medical History / Comment(s): Epilepsy Medications and Allergies Home Medications Medication Instructions Recorded Confirmed Type Aspirin EC [Ecotrin Low Dose] 81 mg PO DAILY 04/03/21 06/03/21 History Carvedilol [Coreg] 25 mg PO BID 04/03/21 06/03/21 History Ergocalciferol (Vitamin D2) 1,250 mcg PO COPELAND 04/03/21 06/03/21 History [Drisdol (50,000 Iu)] Furosemide [Lasix] 40 mg PO BID 04/03/21 06/03/21 History INSULIN LISPRO (HumaLOG) [humaLOG] See Protocol SQ AC-TID 04/03/21 06/03/21 History Isosorbide Mononitrate ER [Imdur] 30 mg PO HS 04/03/21 06/03/21 History Acetaminophen Tab [Tylenol] 650 mg PO Q6HR PRN #30 tab 04/09/21 06/03/21 Rx amLODIPine [Norvasc] 10 mg PO DAILY 30 Days #30 tab 04/15/21 06/03/21 Rx cloNIDine HCL [Catapres] 0.3 mg PO TID 30 Days #90 tab 04/15/21 06/03/21 Rx Escitalopram [Lexapro] 20 mg PO DAILY 04/17/21 06/03/21 History Irbesartan [Avapro] 75 mg PO DAILY 04/17/21 06/03/21 History hydrALAZINE HCL [Apresoline] 100 mg PO TID 04/17/21 06/03/21 History rOPINIRole HCL [Requip] 0.5 mg PO HS 04/17/21 06/03/21 History Glucagon Emergency Kit 1 mg IM ONCE PRN 05/29/21 06/03/21 History Cefuroxime [Ceftin] 250 mg PO BID 3 Days #6 tab 05/31/21 06/03/21 Rx Insulin Glargine [Lantus Vial] 15 unit SQ DAILY #0 05/31/21 06/03/21 Rx Sevelamer [Renvela] 800 mg PO TID-W/MEALS 30 Days #90 05/31/21 06/03/21 Rx tab Allergies Allergy/AdvReac Type Severity Reaction Status Date / Time Fish Containing Products Allergy Rash/Hives Verified 06/03/21 07:44 [Fish] iodine Allergy Anaphylaxis Verified 06/03/21 07:44 Physical Exam Vitals: Vital Signs Temp Pulse Resp BP Pulse Ox 06/03/21 11:01 89 16 152/89 96 06/03/21 09:49 105 H 20 202/108 96 06/03/21 09:01 105 H 16 222/111 95 06/03/21 08:16 104 H 18 215/113 98 06/03/21 07:18 101 H 16 233/112 98 06/03/21 06:13 98.6 F 107 H 16 220/127 97 Intake and Output 06/02/21 06/03/21 06/03/21 22:59 06:59 14:59 Intake Total 17.607 Balance 17.607 Intake: Intake, IV Titration 17.607 Amount Insulin Regular 100 unit 17.607 In Sodium Chloride 0.9% 100 ml @ 0.1 UNITS/KG/HR 4.581 mls/hr IV .Q22H3M [facility] Rx#:[id number] Other: Weight 45.359 kg Results 06/03/21 06:36 01/06/22 06:36 Cardiac Enzymes 06/03/21 06/03/21 06/03/21 Range/Units 06:36 06:36 09:36 AST 39 H (14-36) U/L Troponin I 0.113 H* 0.080 H* (0.000-0.034) ng/mL Coagulation 06/03/21 Range/Units 06:36 PT 10.3 (9.0-12.0) sec APTT 22.4 (22.0-30.0) sec CBC 06/03/21 Range/Units 06:36 WBC 7.4 (3.8-10.6) k/uL RBC 4.44 (3.80-5.40) m/uL Hgb 13.6 (11.4-16.0) gm/dL Hct 41.9 (34.0-46.0) % Plt Count 302 (150-450) k/uL Comprehensive Metabolic Panel 06/03/21 Range/Units 06:36 Sodium 131 L (137-145) mmol/L Potassium 4.6 (3.5-5.1) mmol/L Chloride 88 L (98-107) mmol/L Carbon Dioxide 25 (22-30) mmol/L BUN 16 (7-17) mg/dL Creatinine 4.98 H (0.52-1.04) mg/dL Glucose 753 H* (74-99) mg/dL Calcium 9.9 (8.4-10.2) mg/dL AST 39 H (14-36) U/L ALT 71 H (4-34) U/L Alkaline Phosphatase 311 H (38-126) U/L Total Protein 8.2 (6.3-8.2) g/dL Albumin 5.1 H (3.5-5.0) g/dL Current Medications Generic Name Dose Route Start Last Admin Trade Name Freq PRN Reason Stop Dose Admin Acetaminophen 650 mg 06/03/21 08:46 Acetaminophen Tab 325 Mg Tab PO Q6HR PRN Mild Pain or Fever > 100.5 Amlodipine Besylate 10 mg 06/03/21 09:00 06/03/21 09:22 Amlodipine 10 Mg Tab PO 10 mg DAILY [facility] Administration Carvedilol 25 mg 06/03/21 09:00 06/03/21 09:23 Carvedilol 12.5 Mg Tab PO 25 mg BID [facility] Administration Clonidine 0.3 mg 06/03/21 09:00 06/03/21 09:22 Clonidine Hcl 0.1 Mg Tab PO 0.3 mg TID [facility] Administration Furosemide 40 mg 06/03/21 09:00 06/03/21 09:23 Furosemide 40 Mg Tab PO 40 mg BID@0900,1600 [facility] Administration Heparin Sodium (Porcine) 0 unit 06/03/21 08:36 Heparin Sodium 1,000 Un/Ml (10ml Vl) IV PER PROTOCOL PRN Low PTT Protocol Hydralazine HCl 10 mg 06/03/21 08:49 Hydralazine Hcl 20 Mg/Ml 1 Ml Vial IVP Q4HR PRN Blood Pressure - High Hydralazine HCl 100 mg 06/03/21 09:00 06/03/21 09:18 Hydralazine Hcl 50 Mg Tab PO Not Given TID [facility] Insulin Human Regular 100 unit 101 mls @ 4.581 mls/hr 06/03/21 09:00 06/03/21 12:16 / Sodium Chloride IV 0.14 units/kg/hr .Q22H3M [facility] 6.5 mls/hr Titration Protocol 0.1 UNITS/KG/HR Heparin Sodium/Sodium Chloride 250 mls @ 5.443 mls/hr 06/03/21 08:45 06/03/21 09:13 25,000 unit/ Sodium Chloride IV 12 units/kg/hr .Q24H [facility] 5.443 mls/hr Administration Protocol 12 UNITS/KG/HR Isosorbide Mononitrate 30 mg 06/03/21 21:00 Isosorbide Mononitrate Er 30 Mg Tab.Er.24h PO HS [facility] Losartan Potassium 25 mg 06/03/21 09:00 06/03/21 09:23 Losartan 25 Mg Tab PO 25 mg DAILY [facility] Administration Metoclopramide HCl 10 mg 06/03/21 12:00 Metoclopramide 5 Mg/Ml 2 Ml Vial IVP Q6HR [facility] Naloxone HCl 0.2 mg 06/03/21 08:46 Naloxone 0.4 Mg/Ml 1 Ml Vial IV Q2M PRN Opioid Reversal Pantoprazole Sodium 40 mg 06/03/21 10:15 06/03/21 11:40 Pantoprazole 40 Mg/10 Ml Vial IVP 40 mg BID [facility] Administration Ropinirole HCl 0.5 mg 06/03/21 21:00 Ropinirole Hcl 0.25 Mg Tab PO HS [facility] Sevelamer Carbonate 800 mg 06/03/21 12:30 Sevelamer 800 Mg Tab PO TID-W/MEALS [facility] Intake and Output 06/02/21 06/03/21 06/03/21 22:59 06:59 14:59 Intake Total 17.607 Balance 17.607 Intake: Intake, IV Titration 17.607 Amount Insulin Regular 100 unit 17.607 In Sodium Chloride 0.9% 100 ml @ 0.1 UNITS/KG/HR 4.581 mls/hr IV .Q22H3M [facility] Rx#:[id number] Other: Weight 45.359 kg 06/03/21 06:36 06/03/21 06:36
[2021-06-03 12:52] LABS: Potassium 3.5 mmol/L (3.5-5.1)
[2021-06-03 12:53] LABS: Phosphorus 3.2 mg/dL (2.5-4.5)
[2021-06-03 13:12] LABS: Glucose,Whole Blood 265 mg/dL (75-99)
--- NOTE | 2021-06-03 13:45 | HP ---
HISTORY AND PHYSICAL DATE OF SERVICE: 06/03/2021. CHIEF COMPLAINTS: Chest pain, vomiting, and uncontrolled blood sugars. HISTORY OF PRESENT ILLNESS: This 30-year-old woman with past medical history of multiple medical problems including hemodialysis, hypertension, history of kidney disease, CVA, TIA, is being followed by Dr. Cruz in the outpatient setting, was recently admitted to [facility] with complaints of features of intractable nausea, vomiting, possibly acute gastritis. The patient is Covid negative at this time. Patient improved significantly. Patient went home and apparently patient had a birthday with two kids and then subsequently patient had dialysis. During the dialysis, the patient had significant nausea, vomiting and throughout the night complains of some abdomen discomfort. Patient came to [facility] and the blood sugar is elevated. Patient admitted to the hospital for further evaluation and treatment. There is no history of fever, rigors or chills. No history of headache, loss of consciousness or seizures at this time. PAST MEDICAL HISTORY: History CVA, TIA, hemodialysis, hypertension, recent gastritis. MEDICATIONS: Prior to admission home medications are: Requip, Apresoline, Catapres, Norvasc, Renvela, Imdur, Avapro. Dose, and other medications reviewed. ALLERGIES: FISH CONTAINING PRODUCTS AND IODINE. FAMILY HISTORY: No history of heart disease or strokes in the family. Otherwise, cancer, hypertension, thyroid cancer, bipolar. SOCIAL HISTORY: No history of smoking. No history of alcohol. REVIEW OF SYSTEMS: ENT: No diminished vision. No diminished hearing. CARDIOVASCULAR system: As mentioned earlier. RESPIRATORY: As mentioned earlier. GI: As mentioned earlier. : As mentioned earlier. NERVOUS SYSTEMS: As mentioned earlier. ALLERGY/IMMUNOLOGY: No asthma or hayfever. HEMATOLOGY/ONCOLOGY: No history of anemia. ENDOCRINE: As mentioned earlier. CONSTITUTIONAL: As mentioned earlier. DERMATOLOGY negative. RHEUMATOLOGY: Negative. PSYCHIATRY as mentioned earlier. PHYSICAL EXAMINATION: Alert and oriented times three. Pulse is 105. Blood pressure 202/108, respiration 20, temp normal, pulse ox 98% on room air. HEENT: Conjunctivae normal. Oral mucosa moist. NECK: No JVD. No carotid bruit. No lymph node enlargement. CARDIOVASCULAR: S1, S2. RESPIRATORY: Breath sounds diminished in the bases. No rhonchi. No crackles. ABDOMEN: Soft, nontender. No mass palpable. LEGS: No edema. No swelling. NERVOUS SYSTEM: Higher functions as mentioned. Moves all four limbs. No focal deficits. LYMPHATICS: No lymph nodes palpable in the neck, axillae or groin. SKIN: No ulcer, no rash and no bleeding. JOINTS: No active deforming arthropathy. LABS: Troponin 0.080, otherwise AST, ALT, other labs are noted. ASSESSMENT: 1. Accelerated hypertension, hypertensive urgency, present on admission. 2. Nausea, vomiting, possible acute gastritis. 3. Uncontrolled diabetes type I with sugars more than 600, on IV insulin drip. 4. Elevated AST/ALT, mild hepatitis. 5. Elevated lipase, possible acute pancreatitis. 6. Cerebrovascular accident/transient ischemic attack history. 7. History of hemodialysis. 8. History of renal disease. 9. Hypertension. 10.History of chronic kidney disease. 11.Appendectomy. 12.Caesarean section. 13.Status post cholecystectomy. 14.History of left arm. 15.FULL CODE. 16.Mild protein-calorie malnutrition, BMI of 17.6. 17.FULL CODE. RECOMMENDATION AND DISCUSSION: This 30-year-old woman who presented with multiple complex medical issues, we will monitor the patient closely, continue the current medications. Resume the home medications. Monitor blood pressure closely. Monitor blood sugars closely. IV insulin drip initiated. Cardiology will be consulted for elevated troponin. I would also recommend followup with Hematology as well as rest of the home medications will be resumed. Prognosis guarded because of multiple complex medical issues. Further recommendations to follow. A copy of this dictation being forwarded to Dr. Cruz who is the primary physician. MMAUGUSTOL / CANDYN: [id number] / DENISE
[2021-06-03 14:48] LABS: Glucose,Whole Blood 92 mg/dL (75-99)
[2021-06-03] MEDS ORDERED: DEXTROSE 50% SYRINGE 50 ML IVP STA (15:08)
[2021-06-03 15:31] LABS: Glucose,Whole Blood 209 mg/dL (75-99)
[2021-06-03 16:27] LABS: Glucose,Whole Blood 134 mg/dL (75-99)
[2021-06-03 20:20] LABS: Glucose,Whole Blood 320 mg/dL (75-99)
[2021-06-03] MEDS: INSULIN ASPART (NovoLOG) 100 UNIT/ML VIAL SQ SCH (20:55)
[2021-06-03] MEDS ORDERED: ISOSORBIDE MONONITRATE ER 30 MG TAB.ER.24H PO SCH (21:00)
[2021-06-03] MEDS ORDERED: INSULIN DETEMIR (LEVEMIR) 100 UNIT/ML SYR SQ SCH (21:00)
[2021-06-04] MEDS: METOCLOPRAMIDE 5 MG/ML 2 ML VIAL IVP SCH ×3 (01:03→12:15)
[2021-06-04 01:58] VITALS: RESP 18
[2021-06-04 06:26] LABS: Glucose,Whole Blood 46 mg/dL (75-99)
[2021-06-04] MEDS: INSULIN ASPART (NovoLOG) 100 UNIT/ML VIAL SQ SCH ×2 (06:31→12:17)
[2021-06-04] MEDS: SEVELAMER 800 MG TAB PO SCH ×2 (06:35→12:17)
[2021-06-04 06:47] LABS: Glucose,Whole Blood 103 mg/dL (75-99)
[2021-06-04 06:47] LABS: Anisocytosis Slight; Basophils # (A) 0.1 k/uL (0-0.2); Basophils % (A) 1 %; Eosinophils # (A) 0.2 k/uL (0-0.7); Eosinophils % (A) 3 %; HGB 12.3 gm/dL (11.4-16.0); Lymphocytes # (A) 1.8 k/uL (1.0-4.8); Lymphocytes % (A) 25 %; MCH 29.9 pg (25.0-35.0); MCHC 31.4 g/dL (31.0-37.0); MCV 95.2 fL (80.0-100.0); Macrocytosis Slight; Mean Platelet Volume 8.7; Monocytes # (A) 0.6 k/uL (0-1.0); Monocytes % (A) 8 %; Neutrophils # (A) 4.6 k/uL (1.3-7.7); Neutrophils % (A) 61 %; Platelet Count 254 k/uL (150-450); RDW 17.7 % (11.5-15.5); WBC 7.4 k/uL (3.8-10.6)
[2021-06-04 06:54] LABS: Prothrombin Time 10.7 sec (9.0-12.0)
[2021-06-04 07:05] LABS: Calcium 10.3 mg/dL (8.4-10.2)
[2021-06-04] MEDS: LOSARTAN 25 MG TAB PO SCH (08:44)
[2021-06-04] MEDS: PANTOPRAZOLE 40 MG/10 ML VIAL IVP SCH (08:44)
[2021-06-04] MEDS: amLODIPine 10 MG TAB PO SCH (08:44)
[2021-06-04 08:57] VITALS: TEMP 98.5
[2021-06-04] MEDS ORDERED: ASPIRIN 81 MG PO SCH (09:00)
[2021-06-04] MEDS ORDERED: ESCITALOPRAM 20 MG TAB PO SCH (09:00)
--- NOTE | 2021-06-04 10:12 | P.PN ---
Subjective Patient is seen in follow-up for end-stage renal disease. She is maintained on hemodialysis on Monday schedule. Feels better today. No vomiting or diarrhea. No chest pain or shortness of breath. Hemodynamically stable. Vital signs are stable. General: The patient appeared well nourished and normally developed. HEENT: Head exam is unremarkable. LUNGS: Breath sounds decreased. HEART: Rate and Rhythm are regular. First and second heart sounds normal. No murmurs, rubs or gallops. ABDOMEN: Soft, no distention. EXTREMITITES: No edema. Objective - Vital Signs Vital signs: Vital Signs Temp 98.5 F 06/04/21 08:35 Pulse 80 06/04/21 08:35 Resp 18 06/04/21 08:35 BP 115/72 06/04/21 08:35 Pulse Ox 98 06/04/21 08:35 Intake & Output 06/03/21 06/04/21 06/04/21 18:59 06:59 18:59 Intake Total 65.370 485 Balance 65.370 485 Weight 45.359 kg Intake: Intake, IV Titration 65.370 Amount Heparin Sod,Pork in 0.45% 42.455 NaCl 25,000 unit In 0.45 % NaCl 1 250ml.bag @ 12 UNITS/KG/HR 5.443 mls/hr IV .Q24H [facility] Rx#: [id number] Insulin Regular 100 unit 22.915 In Sodium Chloride 0.9% 100 ml @ 0.1 UNITS/KG/HR 4.581 mls/hr IV .Q22H3M [facility] Rx#:[id number] Oral 485 Other: Voiding Method Toilet # Voids 0 0 - Labs CBC & Chem 7: 06/04/21 06:08 06/04/21 06:08 Labs: Abnormal Lab Results - Last 24 Hours (Table) 06/03/21 06/03/21 06/03/21 Range/Units 09:36 11:03 11:57 RDW (11.5-15.5) % Sodium 135 L (137-145) mmol/L Chloride 92 L (98-107) mmol/L BUN 28 H (7-17) mg/dL Creatinine (0.52-1.04) mg/dL Glucose (74-99) mg/dL POC Glucose (mg/dL) >600 H (75-99) mg/dL Calcium (8.4-10.2) mg/dL Troponin I 0.080 H* (0.000-0.034) ng/mL 06/03/21 06/03/21 06/03/21 Range/Units 11:57 12:07 13:01 RDW (11.5-15.5) % Sodium (137-145) mmol/L Chloride (98-107) mmol/L BUN (7-17) mg/dL Creatinine (0.52-1.04) mg/dL Glucose (74-99) mg/dL POC Glucose (mg/dL) 433 H 265 H (75-99) mg/dL Calcium (8.4-10.2) mg/dL Troponin I 0.083 H* (0.000-0.034) ng/mL 06/03/21 06/03/21 06/03/21 Range/Units 15:19 16:26 20:18 RDW (11.5-15.5) % Sodium (137-145) mmol/L Chloride (98-107) mmol/L BUN (7-17) mg/dL Creatinine (0.52-1.04) mg/dL Glucose (74-99) mg/dL POC Glucose (mg/dL) 209 H 134 H 320 H (75-99) mg/dL Calcium (8.4-10.2) mg/dL Troponin I (0.000-0.034) ng/mL 06/04/21 06/04/21 06/04/21 Range/Units 06:08 06:08 06:25 RDW 17.7 H (11.5-15.5) % Sodium (137-145) mmol/L Chloride 97 L (98-107) mmol/L BUN 37 H (7-17) mg/dL Creatinine 8.32 H* (0.52-1.04) mg/dL Glucose 41 L* (74-99) mg/dL POC Glucose (mg/dL) 46 L (75-99) mg/dL Calcium 10.3 H (8.4-10.2) mg/dL Troponin I (0.000-0.034) ng/mL 06/04/21 Range/Units 06:47 RDW (11.5-15.5) % Sodium (137-145) mmol/L Chloride (98-107) mmol/L BUN (7-17) mg/dL Creatinine (0.52-1.04) mg/dL Glucose (74-99) mg/dL POC Glucose (mg/dL) 103 H (75-99) mg/dL Calcium (8.4-10.2) mg/dL Troponin I (0.000-0.034) ng/mL Assessment and Plan Plan: Assessment: 1. End-stage renal disease maintained on hemodialysis on Monday schedule. 2. Nausea and vomiting due to gastroparesis versus gastroenteritis. Improved. 3. Hypertensive urgency exacerbated by vomiting and unable to keep medications down. Resolved. 4. Diabetes mellitus. Uncontrolled. Blood sugar over 750 on admission. Low this morning. 5. 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 6. Mild hypercalcemia secondary to volume contraction. Also takes vitamin D outpatient. Plan: Hemodialysis today.
[2021-06-04] MEDS: FUROSEMIDE 40 MG TAB PO SCH (10:19)
[2021-06-04] MEDS: cloNIDine HCL 0.1 MG TAB PO SCH (10:19)
[2021-06-04] MEDS: hydrALAZINE HCL 50 MG TAB PO SCH (10:21)
[2021-06-04 11:53] LABS: Glucose,Whole Blood 276 mg/dL (75-99)
[2021-06-04] MEDS: HEPARIN SOD,PORK IN 0.45% NACL 25,000 UNIT in 0.45% NACL 1 250ML.BAG IV SCH (11:58)
[2021-06-04] MEDS: carvediloL 12.5 MG TAB PO SCH (12:19)
--- NOTE | 2021-06-04 13:03 | P.PN ---
Subjective Progress Note Date: 06/04/21 HISTORY OF PRESENT ILLNESS: This is a 30 year old female with a past medical history significant for end- stage renal disease on hemodialysis, blindness, hypertension, and diabetes Bar gerardo does not follow with a spice cleaner. We have been asked to see the patient in consultation for abnormal troponins. Patient examined at the bedside. She is lethargic and unable to provide much history. According to the patient's nurse, the patient came into the hospital due to nausea and vomiting. She has been unable to take her medications for the past few days because of this. The patie nt was complaining of some chest pain when she first came to the emergency room. However she is chest pain-free at this time. She denies any shortness of breath. The patient's blood pressure was elevated upon admission but has improved since receiving her home and hypertensive medications. The patient is also on an insulin drip as her blood sugars are in the 700s. EKG reveals sinus tachycardia with nonspecific ST-T wave changes Chest xray no acute process Laboratory data: WBC 7.4. Hemoglobin 13.6. Platelet count 302. Sodium 131. Potassium 4.6. BUN 16. Creatinine 4.98. Glucose 753. ProBNP 48,200. Troponin 0.113. 0.080. Current home cardiac medications include hydralazine 100 mg 3 times a day, Catapres 0.3 mg 3 times a day, amlodipine 10 mg daily, Imdur 30 mg at night, Lasix 40 mg twice a day, carvedilol 25mg twice a day, aspirin 81 mg daily Most recent echocardiogram obtained in March 2021 revealed ejection fraction 55-60%, mild aortic stenosis, moderate tricuspid regurgitation, moderate pulmonary hypertension 06/04/2021 Patient examined this morning at the bedside. Patient denies chest pain or pressure. Denies shortness of breath. Patient's blood pressure has improved. PHYSICAL EXAM: VITAL SIGNS: Reviewed. GENERAL: Well-developed in no acute distress. HEENT: Head is normocephalic. Pupils are equal, round. Sclerae anicteric. Mucous membranes of the mouth are moist. Neck supple. No JVD or thyromegaly LUNGS: Respirations even and unlabored. Lungs essentially clear to auscultation bilaterally. HEART: Regular rate and rhythm. S1 and S2 heard. + systolic murmur noted. ABDOMEN: Soft. Nondistended. Nontender. EXTREMITIES: Normal range of motion. No clubbing or cyanosis. Peripheral pulses intact. No lower extremity edema NEUROLOGIC: Awake and alert. Oriented x 3. ASSESSMENT: Nausea and vomiting End-stage renal disease on hemodialysis Abnormal troponins, secondary to chronic kidney disease, not indicative of acute coronary syndrome Hypertensive urgency Diabetes Hyperglycemia, BS 700s PLAN: Discontinue IV heparin. Begin subcu heparin. Continue to monitor blood pressure No further inpatient recommendations from a cardiac standpoint We will sign off. Please reconsult if needed. Nurse practitioner note has been reviewed by physician. Signing provider agrees with the documented findings, assessment, and plan of care. Objective - Vital Signs Vital signs: Vital Signs Temp 98.5 F 06/04/21 08:35 Pulse 82 06/04/21 10:17 Resp 18 06/04/21 08:35 BP 149/72 06/04/21 10:17 Pulse Ox 97 06/04/21 10:17 Intake & Output 06/03/21 06/04/21 06/04/21 18:59 06:59 18:59 Intake Total 65.370 485 Balance 65.370 485 Weight 45.359 kg Intake: Intake, IV Titration 65.370 Amount Heparin Sod,Pork in 0.45% 42.455 NaCl 25,000 unit In 0.45 % NaCl 1 250ml.bag @ 12 UNITS/KG/HR 5.443 mls/hr IV .Q24H [facility] Rx#: [id number] Insulin Regular 100 unit 22.915 In Sodium Chloride 0.9% 100 ml @ 0.1 UNITS/KG/HR 4.581 mls/hr IV .Q22H3M [facility] Rx#:[id number] Oral 485 Other: Voiding Method Toilet Toilet # Voids 0 0 0 - Labs CBC & Chem 7: 06/04/21 06:08 06/04/21 06:08 Labs: Abnormal Lab Results - Last 24 Hours (Table) 06/03/21 06/03/21 06/03/21 Range/Units 11:57 13:01 15:19 RDW (11.5-15.5) % Sodium 135 L (137-145) mmol/L Chloride 92 L (98-107) mmol/L BUN 28 H (7-17) mg/dL Creatinine (0.52-1.04) mg/dL Glucose (74-99) mg/dL POC Glucose (mg/dL) 265 H 209 H (75-99) mg/dL Calcium (8.4-10.2) mg/dL 06/03/21 06/03/21 06/04/21 Range/Units 16:26 20:18 06:08 RDW 17.7 H (11.5-15.5) % Sodium (137-145) mmol/L Chloride (98-107) mmol/L BUN (7-17) mg/dL Creatinine (0.52-1.04) mg/dL Glucose (74-99) mg/dL POC Glucose (mg/dL) 134 H 320 H (75-99) mg/dL Calcium (8.4-10.2) mg/dL 06/04/21 06/04/21 06/04/21 Range/Units 06:08 06:25 06:47 RDW (11.5-15.5) % Sodium (137-145) mmol/L Chloride 97 L (98-107) mmol/L BUN 37 H (7-17) mg/dL Creatinine 8.32 H* (0.52-1.04) mg/dL Glucose 41 L* (74-99) mg/dL POC Glucose (mg/dL) 46 L 103 H (75-99) mg/dL Calcium 10.3 H (8.4-10.2) mg/dL 06/04/21 Range/Units 11:51 RDW (11.5-15.5) % Sodium (137-145) mmol/L Chloride (98-107) mmol/L BUN (7-17) mg/dL Creatinine (0.52-1.04) mg/dL Glucose (74-99) mg/dL POC Glucose (mg/dL) 276 H (75-99) mg/dL Calcium (8.4-10.2) mg/dL
[2021-06-04 13:53] VITALS: BMI 17.2
[2021-06-04 14:00] VITALS: BP 132/74; PULSE 76
[2021-06-04] MEDS ORDERED: HEPARIN SODIUM,PORCINE/PF 5,000 UNIT/0.5 ML SYRINGE SQ SCH (16:00)
--- NOTE | 2021-06-04 19:07 | DS ---
DISCHARGE SUMMARY DATE OF SERVICE: 06/04/2021 FINAL DIAGNOSES: 1. Accelerated hypertension, hypertensive urgency, present on admission, improved. 2. Nausea, vomiting. Possible acute gastritis. 3. Uncontrolled diabetes type 1 with sugars more than 600 with brittle diabetes, on IV insulin drip. 4. Elevated AST/ALT, mild hepatitis. 5. Elevated lipase, possible acute pancreatitis. 6. Cerebrovascular accident/transient ischemic attack history. 7. History of hemodialysis. 8. History of renal disease. 9. Hypertension. 10.History of chronic kidney disease. 11.Appendectomy. 12.History of Caesarean section. 13.Status post cholecystectomy. 14.Legal blindness. 15.Mild protein-calorie malnutrition, BMI of 17.6. 16.FULL CODE. DISCHARGE DISPOSITION: The patient will be discharged in stable condition with guarded prognosis. HISTORY OF PRESENT ILLNESS: This 30-year-old woman with a past medical history of multiple medical problems admitted with vomiting as well as accelerated hypertension. The patient treated symptomatically. The patient improved significantly. Patient's sugars also elevated more than 6 and there was no diabetic ketoacidosis. Again, treated symptomatically. Patient had multiple issues with compliance and the patient is legally blind unable to use the insulin pump. I recommend the patient follow up closely with primary physician as well as Endocrine and diabetic teaching with Dr. Coon and Marlo Fair. Patient is followed by Dr. Cruz in the outpatient setting. EXAM: Vitals stable. Cardiovascular: S1, S2. Abdomen soft. Nervous system: No focal deficits. DISCHARGE ADVICE AND MEDICATIONS: 1. Diet is cardiac diet. 2. Activity limited until followup. 3. Follow up with Dr. Cruz in 1-2 days. 4. Follow up with Dr. Coon in 1 week. 5. Follow up with Nephrology as recommended. 6. Hemodialysis to be continued as an outpatient. MEDICATIONS: 1. Apresoline 100 mg p.o. t.i.d. 2. Avapro 75 mg p.o. daily. 3. Coreg 25 mg p.o. b.i.d. 4. Vitamin D2 1.25 mcg p.o. Monday. 5. Aspirin 81 mg p.o. daily. 7. Humalog. 8. Imdur ER 30 mg q.h.s. 9. Lasix 40 mg p.o. b.i.d. 10.Lexapro 20 mg daily. 11.Requip 0.5 mg q.h.s. 12.Catapres 0.3 mg t.i.d. 13.Lantus 15 units subcu daily. 14.Accu-Cheks a.c. 15.Insulin NovoLog scale and follow up with the primary physician. 16.Norvasc 10 mg daily. 17.Protonix 40 mg p.o. b.i.d. 18.Renvela 800 mg p.o. t.i.d. 19.Tylenol p.r.n. Once again, the patient being discharged in stable condition. Guarded prognosis. MMODL / IJN: [id number] / MTDD
== END 2021-06-04 14:16 | disposition home or self-care (01) ==
LOC: EC 06:12 → INTOOBSV 08:36 → 3SCARD 08:36
PROVIDERS: ADMIT Hospitalist; ATTEND Hospitalist
DX: I12.0 Hypertensive chronic kidney disease with stage 5 chronic kidney disease or end stage renal disease (principal); N18.6 End stage renal disease; I16.1 Hypertensive emergency; E10.22 Type 1 diabetes mellitus with diabetic chronic kidney disease; E10.65 Type 1 diabetes mellitus with hyperglycemia; Z20.822 Contact with and (suspected) exposure to COVID-19; E44.1 Mild protein-calorie malnutrition; Z68.1 Body mass index [BMI] 19.9 or less, adult; E83.52 Hypercalcemia; R07.89 Other chest pain; R00.0 Tachycardia, unspecified; K75.9 Inflammatory liver disease, unspecified; R74.8 Abnormal levels of other serum enzymes; R77.8 Other specified abnormalities of plasma proteins; M89.8X9 Other specified disorders of bone, unspecified site; H54.8 Legal blindness, as defined in USA; Z79.4 Long term (current) use of insulin; Z79.82 Long term (current) use of aspirin; Z79.899 Other long term (current) drug therapy; Z91.013 Allergy to seafood; Z91.048 Other nonmedicinal substance allergy status; Z86.73 Personal history of transient ischemic attack (TIA), and cerebral infarction without residual deficits; Z90.49 Acquired absence of other specified parts of digestive tract; Z99.2 Dependence on renal dialysis; Z87.19 Personal history of other diseases of the digestive system; Z98.891 History of uterine scar from previous surgery; Z82.49 Family history of ischemic heart disease and other diseases of the circulatory system; Z82.0 Family history of epilepsy and other diseases of the nervous system; Z80.8 Family history of malignant neoplasm of other organs or systems; Z81.8 Family history of other mental and behavioral disorders
CPT/HCPCS: 99285; 96376 ×3; 96366 ×2; 96365; 96375; 36415; 93005; 83880; 80051; 80053; 80048 ×2; 83690; 83735; 84100; 84520; 84484; 85025 ×3; 85610 ×2; 85730 ×2; 87040; 87635; 71046; G0378 ×2; J2060; J0360; J1200; J2765 ×2; J1644 ×2; J1170; C9113 ×2; 90935

== ENCOUNTER 2021-06-11 12:25 | Inpatient (IN) | payer MEDICARE ==
[2021-06-11 12:35] LABS: Glucose,Whole Blood 158 mg/dL (75-99)
[2021-06-11 13:26] LABS: Anisocytosis Slight; Basophils # (A) 0.1 k/uL (0-0.2); Basophils % (A) 1 %; Eosinophils # (A) 0.1 k/uL (0-0.7); Eosinophils % (A) 1 %; HCT 41.1 % (34.0-46.0); HGB 13.9 gm/dL (11.4-16.0); Lymphocytes # (A) 1.3 k/uL (1.0-4.8); Lymphocytes % (A) 10 %; MCH 30.5 pg (25.0-35.0); MCHC 33.9 g/dL (31.0-37.0); Mean Platelet Volume 9.1; Monocytes # (A) 0.5 k/uL (0-1.0); Monocytes % (A) 4 %; Neutrophils # (A) 10.4 k/uL (1.3-7.7); Neutrophils % (A) 83 %; Platelet Count 270 k/uL (150-450); Poikilocytosis Slight; RBC 4.56 m/uL (3.80-5.40); RDW 16.1 % (11.5-15.5); WBC 12.4 k/uL (3.8-10.6)
[2021-06-11 13:36] LABS: Partial Thromboplastin Time 24.9 sec (22.0-30.0); Prothrombin Time 10.3 sec (9.0-12.0)
--- NOTE | 2021-06-11 13:51 | ED ---
General Adult HPI - General Chief complaint: Seizure Stated complaint: diabetic issues Time Seen by Provider: 06/11/21 12:30 Source: patient, EMS, RN notes reviewed, old records reviewed Mode of arrival: EMS Limitations: altered mental status - History of Present Illness Initial comments: This is a 30-year-old female who who came by EMS because father went to see her at 11:30 in her bedroom and the patient was not waking up. Patient was found to have a sugar of 36 when EMS arrived. Patient was given D50 on the way in and she became much more alert though she is still somewhat confused. No pain she get further history but later father was contacted and he stated that last night she was sick and vomiting and was not sleeping and did not take any of her morning meds because he let her sleep in and she did not eat this morning either. Initially there was some thought that there might have been a seizure involved however talking in that she was just stiff in bed and wasn't responding to her. Patient stated her chest felt a little sore and she is feeling cold. Patient denies any difficulty breathing. Patient denies any recent fever. [place] carrillo doesn't remember vomiting. - Related Data Home Medications Medication Instructions Recorded Confirmed Aspirin EC [Ecotrin Low Dose] 81 mg PO DAILY 04/03/21 06/03/21 Carvedilol [Coreg] 25 mg PO BID 04/03/21 06/03/21 Ergocalciferol (Vitamin D2) 1,250 mcg PO COPELAND 04/03/21 06/03/21 [Drisdol (50,000 Iu)] Furosemide [Lasix] 40 mg PO BID 04/03/21 06/03/21 INSULIN LISPRO (HumaLOG) [humaLOG] See Protocol SQ AC-TID 04/03/21 06/03/21 Isosorbide Mononitrate ER [Imdur] 30 mg PO HS 04/03/21 06/03/21 Escitalopram [Lexapro] 20 mg PO DAILY 04/17/21 06/03/21 Irbesartan [Avapro] 75 mg PO DAILY 04/17/21 06/03/21 hydrALAZINE HCL [Apresoline] 100 mg PO TID 04/17/21 06/03/21 rOPINIRole HCL [Requip] 0.5 mg PO HS 04/17/21 06/03/21 Glucagon Emergency Kit 1 mg IM ONCE PRN 05/29/21 06/03/21 Previous Rx's Medication Instructions Recorded Acetaminophen Tab [Tylenol] 650 mg PO Q6HR PRN #30 tab 04/09/21 amLODIPine [Norvasc] 10 mg PO DAILY 30 Days #30 tab 04/15/21 cloNIDine HCL [Catapres] 0.3 mg PO TID 30 Days #90 tab 04/15/21 Insulin Glargine [Lantus Vial] 15 unit SQ DAILY #0 05/31/21 Sevelamer [Renvela] 800 mg PO TID-W/MEALS 30 Days #90 05/31/21 tab Pantoprazole Sodium [Protonix] 40 mg PO BID 30 Days #60 tab 06/04/21 Allergies Allergy/AdvReac Type Severity Reaction Status Date / Time Fish Containing Products Allergy Rash/Hives Verified 06/03/21 07:44 [Fish] iodine Allergy Anaphylaxis Verified 06/03/21 07:44 Review of Systems ROS Statement: Those systems with pertinent positive or pertinent negative responses have been documented in the HPI. ROS Other: All systems not noted in ROS Statement are negative. Past Medical History Past Medical History: CVA/TIA, Dialysis, Eye Disorder, Hypertension, Seizure Disorder Additional Past Medical History / Comment(s): ESRD with hemodialysis M/W/F, IDDM type 1, DKA, neuropathy bilateral legs/feet, diabetic retinopathy/legally blind, RLS, recent hospitalizations for gastritis, severe hypokalemia, fluid retention in abdomin/legs. History of Any Multi-Drug Resistant Organisms: None Reported Past Surgical History: Appendectomy, Section, Cholecystectomy Additional Past Surgical History / Comment(s): fistula left arm Past Anesthesia/Blood Transfusion Reactions: No Reported Reaction Past Psychological History: No Psychological Hx Reported Smoking Status: Never smoker - Past Family History Mother Family Medical History: Cancer, Hypertension Additional Family Medical History / Comment(s): Thyroid cancer, bipolar Father Family Medical History: Seizure Disorder Additional Family Medical History / Comment(s): Epilepsy General Exam - General Exam Comments Initial Comments: GENERAL: Patient is well-developed and well-nourished. Patient is nontoxic and well- hydrated and is in mild distress. Patient is hypothermic ENT: Neck is soft and supple. No significant lymphadenopathy is noted. Oropharynx is clear. Moist mucous membranes. Neck has full range of motion without eliciting any pain. There is no thyroid enlargement and no masses were felt. EYES: The sclera were anicteric and conjunctiva were pink and moist. Extraocular movements were intact and pupils were equal round and reactive to light. Eyelids were unremarkable. PULMONARY: Unlabored respirations. Good breath sounds bilaterally. No audible rales rhonchi or wheezing was noted. CARDIOVASCULAR: There is a regular rate and rhythm without any murmurs gallops or rubs. ABDOMEN: Soft and nontender with normal bowel sounds. SKIN: Skin is clear with no lesions or rashes and otherwise unremarkable. NEUROLOGIC: Patient is alert and oriented 2. Cranial nerves II through XII are grossly intact. Motor and sensory are also intact. Normal speech, volume and content. Symmetrical smile. MUSCULOSKELETAL: Normal extremities with adequate strength and full range of motion. LYMPHATICS: No significant lymphadenopathy is noted PSYCHIATRIC: Normal psychiatric evaluation. Limitations: altered mental status Course Vital Signs 06/11/21 06/11/21 12:35 13:50 Temperature 94.5 F L Pulse Rate 67 66 Respiratory 18 16 Rate Blood Pressure 141/130 183/107 O2 Sat by Pulse 99 99 Oximetry Medical Decision Making - Medical Decision Making EKG shows normal sinus rhythm at 69 bpm IN interval is 140 cardiac 92 QT interval is 48 QTC is 522. Patient's EKG shows no ST segment elevation or depression. CT of the brain shows no acute abnormality. Patient is still slightly confused and because of her altered mental status, hypoglycemia, hypothermia patient will be kept and monitored. I spoke with the symptoms do not see her in agreement with this. Troponins will be repeated. I wrote admitting orders. - Lab Data Result diagrams: 06/11/21 13:04 06/11/21 14:00 Lab Results 06/11/21 06/11/21 06/11/21 Range/Units 12:34 13:04 13:04 WBC 12.4 H (3.8-10.6) k/uL RBC 4.56 (3.80-5.40) m/uL Hgb 13.9 (11.4-16.0) gm/dL Hct 41.1 (34.0-46.0) % MCV 90.0 D (80.0-100.0) fL MCH 30.5 (25.0-35.0) pg MCHC 33.9 (31.0-37.0) g/dL RDW 16.1 H (11.5-15.5) % Plt Count 270 (150-450) k/uL MPV 9.1 Neutrophils % 83 % Lymphocytes % 10 % Monocytes % 4 % Eosinophils % 1 % Basophils % 1 % Neutrophils # 10.4 H (1.3-7.7) k/uL Lymphocytes # 1.3 (1.0-4.8) k/uL Monocytes # 0.5 (0-1.0) k/uL Eosinophils # 0.1 (0-0.7) k/uL Basophils # 0.1 (0-0.2) k/uL Poikilocytosis Slight Anisocytosis Slight PT 10.3 (9.0-12.0) sec INR 1.0 (<1.2) APTT 24.9 (22.0-30.0) sec Sodium (137-145) mmol/L Potassium (3.5-5.1) mmol/L Chloride (98-107) mmol/L Carbon Dioxide (22-30) mmol/L Anion Gap mmol/L BUN (7-17) mg/dL Creatinine (0.52-1.04) mg/dL Est GFR (CKD-EPI)AfAm (>60 ml/min/1.73 sqM) Est GFR (CKD-EPI)NonAf (>60 ml/min/1.73 sqM) Glucose (74-99) mg/dL POC Glucose (mg/dL) 158 H (75-99) mg/dL POC Glu Urban Renew[employer] ID Belval, Liseth Calcium (8.4-10.2) mg/dL Magnesium (1.6-2.3) mg/dL Total Bilirubin (0.2-1.3) mg/dL AST (14-36) U/L ALT (4-34) U/L Alkaline Phosphatase (38-126) U/L Troponin I (0.000-0.034) ng/mL Total Protein (6.3-8.2) g/dL Albumin (3.5-5.0) g/dL Urine Color Urine Appearance (Clear) Urine pH (5.0-8.0) Ur Specific [place] (1.001-1.035) Urine Protein (Negative) Urine Glucose (UA) (Negative) Urine Ketones (Negative) Urine Blood (Negative) Urine Nitrite (Negative) Urine Bilirubin (Negative) Urine Urobilinogen (<2.0) mg/dL Ur Leukocyte Esterase (Negative) Urine RBC (0-5) /hpf Urine WBC (0-5) /hpf Ur Squamous Epith Cells (0-4) /hpf Urine Bacteria (None) /hpf 06/11/21 06/11/21 06/11/21 Range/Units 13:04 14:00 14:00 WBC (3.8-10.6) k/uL RBC (3.80-5.40) m/uL Hgb (11.4-16.0) gm/dL Hct (34.0-46.0) % MCV (80.0-100.0) fL MCH (25.0-35.0) pg MCHC (31.0-37.0) g/dL RDW (11.5-15.5) % Plt Count (150-450) k/uL MPV Neutrophils % % Lymphocytes % % Monocytes % % Eosinophils % % Basophils % % Neutrophils # (1.3-7.7) k/uL Lymphocytes # (1.0-4.8) k/uL Monocytes # (0-1.0) k/uL Eosinophils # (0-0.7) k/uL Basophils # (0-0.2) k/uL Poikilocytosis Anisocytosis PT (9.0-12.0) sec INR (<1.2) APTT (22.0-30.0) sec Sodium 131 L (137-145) mmol/L Potassium 4.3 (3.5-5.1) mmol/L Chloride 94 L (98-107) mmol/L Carbon Dioxide 26 (22-30) mmol/L Anion Gap 11 mmol/L BUN 60 H (7-17) mg/dL Creatinine 8.17 H* (0.52-1.04) mg/dL Est GFR (CKD-EPI)AfAm 7 (>60 ml/min/1.73 sqM) Est GFR (CKD-EPI)NonAf 6 (>60 ml/min/1.73 sqM) Glucose 113 H (74-99) mg/dL POC Glucose (mg/dL) (75-99) mg/dL POC Glu [employer] Manager ID Calcium 9.7 (8.4-10.2) mg/dL Magnesium 2.1 (1.6-2.3) mg/dL Total Bilirubin 1.1 (0.2-1.3) mg/dL AST 33 (14-36) U/L ALT 22 (4-34) U/L Alkaline Phosphatase 131 H (38-126) U/L Troponin I 0.219 H* (0.000-0.034) ng/mL Total Protein 6.7 (6.3-8.2) g/dL Albumin 3.9 (3.5-5.0) g/dL Urine Color Yellow Urine Appearance Clear (Clear) Urine pH 8.0 (5.0-8.0) Ur Specific [place] 1.019 (1.001-1.035) Urine Protein 4+ H (Negative) Urine Glucose (UA) 3+ H (Negative) Urine Ketones Negative (Negative) Urine Blood Trace H (Negative) Urine Nitrite Negative (Negative) Urine Bilirubin Negative (Negative) Urine Urobilinogen <2.0 (<2.0) mg/dL Ur Leukocyte Esterase Negative (Negative) Urine RBC 1 (0-5) /hpf Urine WBC 3 (0-5) /hpf Ur Squamous Epith Cells 7 H (0-4) /hpf Urine Bacteria Rare H (None) /hpf 06/11/21 Range/Units 14:22 WBC (3.8-10.6) k/uL RBC (3.80-5.40) m/uL Hgb (11.4-16.0) gm/dL Hct (34.0-46.0) % MCV (80.0-100.0) fL MCH (25.0-35.0) pg MCHC (31.0-37.0) g/dL RDW (11.5-15.5) % Plt Count (150-450) k/uL MPV Neutrophils % % Lymphocytes % % Monocytes % % Eosinophils % % Basophils % % Neutrophils # (1.3-7.7) k/uL Lymphocytes # (1.0-4.8) k/uL Monocytes # (0-1.0) k/uL Eosinophils # (0-0.7) k/uL Basophils # (0-0.2) k/uL Poikilocytosis Anisocytosis PT (9.0-12.0) sec INR (<1.2) APTT (22.0-30.0) sec Sodium (137-145) mmol/L Potassium (3.5-5.1) mmol/L Chloride (98-107) mmol/L Carbon Dioxide (22-30) mmol/L Anion Gap mmol/L BUN (7-17) mg/dL Creatinine (0.52-1.04) mg/dL Est GFR (CKD-EPI)AfAm (>60 ml/min/1.73 sqM) Est GFR (CKD-EPI)NonAf (>60 ml/min/1.73 sqM) Glucose (74-99) mg/dL POC Glucose (mg/dL) 102 H (75-99) mg/dL POC Glu Urban Renew[employer] Manager ID Belval, Liseth Calcium (8.4-10.2) mg/dL Magnesium (1.6-2.3) mg/dL Total Bilirubin (0.2-1.3) mg/dL AST (14-36) U/L ALT (4-34) U/L Alkaline Phosphatase (38-126) U/L Troponin I (0.000-0.034) ng/mL Total Protein (6.3-8.2) g/dL Albumin (3.5-5.0) g/dL Urine Color Urine Appearance (Clear) Urine pH (5.0-8.0) Ur Specific [place] (1.001-1.035) Urine Protein (Negative) Urine Glucose (UA) (Negative) Urine Ketones (Negative) Urine Blood (Negative) Urine Nitrite (Negative) Urine Bilirubin (Negative) Urine Urobilinogen (<2.0) mg/dL Ur Leukocyte Esterase (Negative) Urine RBC (0-5) /hpf Urine WBC (0-5) /hpf Ur Squamous Epith Cells (0-4) /hpf Urine Bacteria (None) /hpf Disposition Clinical Impression: Hypoglycemia, Hypothermia, Missed dialysis, Elevated troponin Disposition: ADMITTED IP TO THIS HOSP Referrals: Edith Cruz MD [Primary Care Provider] - 1-2 days Time of Disposition: 15:04
[2021-06-11 14:11] LABS: Appearance,Urine Clear (Clear); Bacteria,Urine Rare /hpf; Bilirubin,Urine Negative (Negative); Blood,Urine Trace (Negative); Color,Urine Yellow; Glucose,Urine (UA) 3+ (Negative); Ketones,Urine Negative (Negative); Leukocyte Esterase,Urine Negative (Negative); Nitrite,Urine Negative (Negative); Protein,Urine 4+ (Negative); RBC,Urine 1 /hpf (0-5); Specific Gravity,Urine 1.019 (1.001-1.035); Squamous Epithelial Cell,Urine 7 /hpf (0-4); Urobilinogen,Urine <2.0 mg/dL (<2.0); WBC,Urine 3 /hpf (0-5)
[2021-06-11 14:23] LABS: Glucose,Whole Blood 102 mg/dL (75-99)
[2021-06-11 14:26] LABS: Albumin 3.9 g/dL (3.5-5.0); Calcium 9.7 mg/dL (8.4-10.2); Total Bilirubin 1.1 mg/dL (0.2-1.3); Total Protein 6.7 g/dL (6.3-8.2)
[2021-06-11 14:29] LABS: Magnesium 2.1 mg/dL (1.6-2.3); Potassium 4.3 mmol/L (3.5-5.1)
--- NOTE | 2021-06-11 15:02 | XR ---
EXAMINATION TYPE: XR chest 2V DATE OF EXAM: 06/11/2021 COMPARISON: 06/03/2021 TECHNIQUE: PA and lateral views submitted. HISTORY: Cough FINDINGS: Bilateral multifocal infiltrates. No pleural effusion or pneumothorax. Heart size is mildly prominent . Diffuse osteopenia. Osseous structures intact. IMPRESSION: 1. Bilateral multifocal pneumonia. 2. Cardiomegaly
--- NOTE | 2021-06-11 15:10 | CT ---
EXAMINATION TYPE: CT brain wo con DATE OF EXAM: 06/11/2021 COMPARISON: None HISTORY: 30-year-old female new onset seizure TECHNIQUE: Examination was done in axial plane without intravenous contrast. Coronal and sagittal r econstructions performed. CT DLP: 1094.4 mGycm Automated exposure control for dose reduction was used. FINDINGS: There is no evidence of acute intracranial hemorrhage, acute ischemic changes, mass, mass-effect, or extra-axial fluid collection. There is no effacement of cerebral sulci or basal subarachnoid cister ns. There is no midline shift. Goldberg-white matter distinction is preserved. There is dilatation of the atria/occipital horns of the lateral ventricles. Paranasal sinuses and mastoid air cells are well pneumatized. Orbits and globes are intact. IMPRESSION: Dilatation of the atria/occipital horns of the lateral ventricles. Findings may represent colpocephal y suggests in the setting of dysgenesis of the posterior corpus callosum. Further MRI evaluation yaw mmended. No acute intracranial abnormality otherwise seen.
[2021-06-11 16:21] LABS: Glucose,Whole Blood 82 mg/dL (75-99)
[2021-06-11 17:42] LABS: Glucose,Whole Blood 87 mg/dL (75-99)
[2021-06-11] MEDS ORDERED: ACETAMINOPHEN TAB 325 MG TAB PO PRN (17:52)
[2021-06-11] MEDS ORDERED: cloNIDine HCL 0.1 MG TAB PO SCH (18:00)
[2021-06-11] MEDS: INSULIN ASPART (NovoLOG) 100 UNIT/ML VIAL SQ SCH ×2 (18:56→21:04)
[2021-06-11] MEDS: hydrALAZINE HCL 50 MG TAB PO SCH ×2 (19:03→22:29)
[2021-06-11] MEDS: LOSARTAN 25 MG TAB PO SCH (19:04)
[2021-06-11] MEDS: cloNIDine HCL 0.1 MG TAB PO SCH ×2 (19:04→22:29)
[2021-06-11] MEDS: amLODIPine 10 MG TAB PO SCH (19:04)
[2021-06-11] MEDS: INSULIN DETEMIR (LEVEMIR) 100 UNIT/ML SYR SQ SCH (20:31)
--- NOTE | 2021-06-11 20:32 | HP ---
HISTORY AND PHYSICAL CHIEF COMPLAINTS: Change in mental status and hypoglycemia. HISTORY OF PRESENT ILLNESS: This 30-year-old woman with a past medical history of multiple medical problems, including diabetes mellitus, type 2, CVA, TIA, hemodialysis, chronic renal failure, seizure disorder, being followed by Dr. Cruz in the outpatient setting, was recently admitted with multiple medical issues, including accelerated hypertension, history of nausea, vomiting and acute gastritis. The patient also had multiple acute abnormalities. The patient has brittle diabetes. Blood sugars were more than 600. Patient was treated with IV insulin drip. Patient went home. Patient apparently was not eating anything. The patient had change in mental status. EMS found the blood sugars around 30 and the patient was taken to [facility] and admitted for further evaluation and treatment. The patient was only eating rice and Vernor's for the last several days and probably was not checking the sugars on a frequent basis, either. Currently the patient is extremely drowsy, unable to give a coherent history. Most of the history is taken from my discussion with staff and review of the chart at this time. Creatinine is elevated at 8.17. Troponin is elevated at 0.219. There is no history of any fever, rigor or chills at this time. COVID-19 is negative. PAST MEDICAL HISTORY: History of CVA, TIA, history of hemodialysis, hypertension, renal disease, seizure disorder. HOME MEDICATIONS: Requip, apresoline, Catapres, Norvasc, Renvela, Protonix, Imdur, Avapro, Lantus, Humalog, glucagon, Lasix, Lexapro. Doses and other medications are reviewed. ALLERGIES: FISH AND IODINE. FAMILY HISTORY: History of hypertension, history of throat cancer, history of bipolar. SOCIAL HISTORY: No history of smoking, no history of alcohol intake, per chart. REVIEW OF SYSTEMS: Review of systems could not be taken because of the patient's change in mental status. PHYSICAL EXAMINATION: The patient is drowsy, confused. Pulse 66, blood pressure 183/107, respiration 16, temperature 94.4, pulse ox 99% on room air. HEENT: Conjunctivae normal. NECK: No jugular venous distention. CARDIOVASCULAR: S1, S2 muffled. RESPIRATION: Breath sounds diminished at the bases. Scattered rhonchi and crackles. ABDOMEN: Soft, nontender. No mass palpable. LEGS: No edema. No swelling. NERVOUS SYSTEM: Higher functions as mentioned earlier. Moves all 4 limbs. No focal motor or sensory deficit. LYMPHATICS: No lymph node palpable in neck, axillae or groin. SKIN: No ulcer, rash, bleeding. JOINTS: No active deforming arthropathy. LABS: Sodium 139, potassium 4.3. WBC 12.4. UA noted. COVID-19 is negative. Chest x- ray and CT of the brain were reviewed personally by me. The chest x-ray showed evidence of bilateral multifocal pneumonia and cardiomegaly. Other labs are reviewed. ASSESSMENT: 1. Change in mental status, possibly secondary to acute hypoglycemia. 2. Acute bilateral multifocal pneumonia with possibly Gram-negative sepsis. Rule out 3. Increased white count. 4. Hyponatremia. 5. Troponin 0.219. Rule out acute coronary event or acute myocardial infarction. 6. History of recent vomiting. 7. Accelerated hypertension with hypertensive urgency. 8. History of noncompliance. 9. History of cerebrovascular accident, transient ischemic attack. 10.History of hypertension. 11.History of seizure disorder. 12.History of renal disease. 13.Diabetes mellitus, type 1. 14.History of peripheral neuropathy. 15.History of legal blindness. 16.History of restless legs syndrome. 17.History of gastritis recently. 18.History of multiple imbalance. 19.History of section. 20.FULL CODE. RECOMMENDATIONS AND DISCUSSION: In this 30-year-old woman who presented with multiple complex medical issues, we will monitor the patient closely, continue the current medications, continue symptomatic treatment. Otherwise, resume the home medications. We will initiate broad- spectrum IV antibiotics. I would also recommend repeat COVID-19 testing. I would also recommend cardiology consultation for the elevated troponin and infectious disease evaluation for possible pneumonia. Broad-spectrum IV antibiotics initiated. Prognosis guarded. Further recommendations to follow. A copy of this dictation is being forwarded to Dr. Cruz, who is the primary physician. See orders for further details. MMODL / IJN: [id number] / MTDD
[2021-06-11] MEDS ORDERED: DEXTROSE 50% SYRINGE 50 ML IVP ONE (20:53)
[2021-06-11 20:56] LABS: Glucose,Whole Blood 133 mg/dL (75-99)
[2021-06-11] MEDS: ISOSORBIDE MONONITRATE ER 30 MG TAB.ER.24H PO SCH (21:08)
[2021-06-11] MEDS: carvediloL 12.5 MG TAB PO SCH (21:08)
[2021-06-11] MEDS: PANTOPRAZOLE 40 MG TABLET PO SCH (21:08)
[2021-06-11 21:21] LABS: Glucose,Whole Blood 141 mg/dL (75-99)
[2021-06-11 22:38] LABS: Glucose,Whole Blood 202 mg/dL (75-99)
[2021-06-12 00:08] LABS: ABG Base Excess 5.8 mmol/L; ABG HCO3 30 mmol/L (21-25); ABG Oxygen Saturation 94.9 % (94-97); ABG PCO2 45 mmHg (35-45); ABG PH 7.44 (7.35-7.45); ABG PO2 78 mmHg (83-108); ABG TCO2 31 mmol/L (19-24); Allen Test Performed? Yes
--- NOTE | 2021-06-12 00:46 | CT ---
EXAMINATION TYPE: CT chest wo con DATE OF EXAM: 06/12/2021 COMPARISON: None HISTORY: Abdominal pain, acute, non localized. CT DLP: 187.9 mGycm Automated exposure control for dose reduction was used. Images obtained from the thoracic inlet diaphragm without contrast. There is multifocal airspace somewhat rounded infiltrates throughout both lungs. These measure up to 3 cm. There is mild pericardial effusion. No solid pulmonary mass identified. Upper abdominal soft ti ssues show apparent cholecystectomy. There are no hilar masses. There is no evidence of mediastinal a denopathy. The thoracic spine is intact. There is no compression fracture. Sternum is intact. I see no bony dest ructive process. IMPRESSION: Numerous patchy variable sized somewhat rounded areas of airspace infiltrate in both lungs. The appea juan is nonspecific. Infectious disease is more likely. No solid pulmonary mass. Mild pericardial effusion.
[2021-06-12] MEDS: ONDANSETRON 4 MG/2 ML VIAL IVP PRN ×2 (00:54→06:34)
[2021-06-12] MEDS: cloNIDine HCL 0.1 MG TAB PO SCH ×4 (00:59→21:00)
[2021-06-12] MEDS: hydrALAZINE HCL 50 MG TAB PO SCH ×4 (00:59→20:59)
[2021-06-12 03:44] LABS: Basophils % (A) 0 %; Eosinophils # (A) 0.1 k/uL (0-0.7); Eosinophils % (A) 2 %; HCT 38.4 % (34.0-46.0); HGB 12.6 gm/dL (11.4-16.0); Lymphocytes % (A) 14 %; MCH 30.1 pg (25.0-35.0); MCHC 32.8 g/dL (31.0-37.0); Mean Platelet Volume 9.1; Monocytes # (A) 0.3 k/uL (0-1.0); Monocytes % (A) 5 %; Neutrophils # (A) 5.6 k/uL (1.3-7.7); Neutrophils % (A) 77 %; Platelet Count 207 k/uL (150-450); RBC 4.18 m/uL (3.80-5.40); RDW 15.8 % (11.5-15.5); WBC 7.3 k/uL (3.8-10.6)
[2021-06-12 03:55] LABS: Calcium 9.3 mg/dL (8.4-10.2); Potassium 4.3 mmol/L (3.5-5.1)
[2021-06-12] MEDS: INSULIN ASPART (NovoLOG) 100 UNIT/ML VIAL SQ SCH ×4 (06:35→20:59)
[2021-06-12 06:39] LABS: Glucose,Whole Blood 381 mg/dL (75-99)
[2021-06-12] MEDS: SEVELAMER 800 MG TAB PO SCH ×3 (06:39→20:05)
[2021-06-12] MEDS: LOSARTAN 25 MG TAB PO SCH (08:29)
[2021-06-12] MEDS: ASPIRIN 81 MG PO SCH (08:30)
[2021-06-12] MEDS: PANTOPRAZOLE 40 MG TABLET PO SCH ×2 (08:30→20:04)
[2021-06-12] MEDS: FUROSEMIDE 40 MG TAB PO SCH ×2 (08:30→16:46)
[2021-06-12] MEDS: ESCITALOPRAM 20 MG TAB PO SCH (08:30)
[2021-06-12] MEDS: carvediloL 12.5 MG TAB PO SCH ×2 (08:30→20:05)
[2021-06-12] MEDS: INSULIN DETEMIR (LEVEMIR) 100 UNIT/ML SYR SQ SCH (08:31)
[2021-06-12] MEDS: amLODIPine 10 MG TAB PO SCH (08:31)
--- NOTE | 2021-06-12 11:42 | CONS ---
CONSULTATION REASON FOR CONSULT: End-stage renal disease. HISTORY OF PRESENT ILLNESS: Patient is a 30-year-old female with end-stage renal disease, on hemodialysis on a Monday, Monday, Monday schedule. Patient was admitted to the hospital with complaints of not feeling well. Her blood sugars have been high. She was also confused. Her pressure was significantly elevated, with systolic blood pressure above 215. EMS was called home due to changes in mentation. Patient had not been eating much. Apparently she had only been eating rice and drinking Vernor's for the last few days. She was dialyzed yesterday. We had 2.7 L of fluid removed. Blood pressure is better, although still elevated. Patient states that she had only about 2 L of fluid removed on Monday as well, and we will arrange for hemodialysis again today. PAST MEDICAL HISTORY: End-stage renal disease, brittle diabetes, uncontrolled hypertension, history of diabetic gastroparesis, type 1 diabetes, retinopathy, neuropathy. PAST SURGICAL HISTORY: Appendectomy, , cholecystectomy, left arm AV fistula. SOCIAL HISTORY: Negative for smoking, drug abuse or alcohol abuse. MEDICATIONS: Medications prior to admission included aspirin, Coreg, Lasix, insulin, Imdur, Lexapro, hydralazine, Requip, clonidine, Norvasc, Tylenol, insulin, Renvela, Protonix. ALLERGIES: ALLERGIES INCLUDE FISH AND IODINE. REVIEW OF SYSTEMS: As per HPI. Other systems negative. PHYSICAL EXAMINATION: Patient is comfortable, awake, not in any acute distress. Alert, oriented x3. Blood pressure 163/89, heart rate 74 per minute. She is afebrile. EXAMINATION OF THE HEART: S1 and S2. EXAMINATION OF LUNGS: Bilateral breath sounds are heard. Abdomen is soft, non-tender. Examination of lower extremities shows trace edema bilaterally. QUALITY DIRECTOR EXAM: Grossly intact. LABS: Sodium 129, potassium 4.3, BUN 33, creatinine 5.9, hemoglobin 12.6 g/dL. ASSESSMENT: 1. End-stage renal disease, on hemodialysis on a Monday, Monday, Monday schedule. 2. Severe hyperglycemia with blood sugar in the 600 range on initial admission, currently improved. 3. Mental status changes, possibly related to hypertensive urgency/severe hyperglycemia, currently improved. 4. Volume overload. 5. Chronic kidney disease mineral bone disorder. 6. Hyponatremia, mostly hypervolemic. PLAN: Repeat hemodialysis today. Goal UF 2 to 3 L as tolerated. Continue her antihypertensive regimen and advance diet as tolerated. Thank you for this consultation. Will continue to follow the patient with you during her hospitalization. EMILY / KYAW: [id number] /
[2021-06-12 11:51] LABS: Glucose,Whole Blood 191 mg/dL (75-99)
--- NOTE | 2021-06-12 12:19 | P.CRDCN ---
History of Present Illness Consult date: 06/12/21 Reason for Consult (text): elevated troponins History of present illness: The patient is a 30-year-old female with past medical history of type 1 diabetes, end-stage renal disease on dialysis, hypertension, and prior TIA, who presented to the hospital with mental status changes. The patient was recently admitted in early May with hypertensive urgency and glucose levels over 700. She was subsequently discharged on an adjusted medication regimen, when she was recently found blood glucose levels in the 30s. According to the patient she's had nausea and vomiting over the last week and was only eating a small amount of rice and rachel britney. The patient was interviewed and examined lying in bed. She currently denies any chest pain or chest pressure. She also denies any difficulty breathing. She continues to report stomach discomfort and overall feeling well. DIAGNOSTICS: EKG shows sinus mechanism with no ST or T-wave abnormalities Troponin levels, 0.21 and 0.17 Lab data: WBC 7.3, hemoglobin 12.6, hematocrit 38, platelet 207 Echocardiogram in March 2021 shows normal LV function with mild aortic stenosis and moderate tricuspid regurgitation REVIEW OF SYSTEMS: No fever or chills. No cough or expectoration. No diaphores is. Patient denies headache, dizziness, blurred vision, double vision. Patient denies any stomach discomfort. No nausea, vomiting. No hematochezia. No hematemesis. Denies any black stools or blood in his stools. Denies dysuria or hematuria. No muscle weakness or numbness. PHYSICAL EXAMINATION: This is a 30-year-old female in no apparent distress at the time of my examination. HEENT: Head is atraumatic, normocephalic. Pupils are equal, round. Sclerae anicteric. Conjunctivae are clear. Mucous membranes of the mouth are moist. Neck is supple. There is no jugular venous distention. No carotid bruit is heard. CHEST EXAMINATION: Lungs are clear to auscultation. No chest wall tenderness is noted on palpation or with deep breathing. HEART EXAMINATION: Heart regular rate and rhythm. S1, S2 heard. No gallops or rub. Soft systolic murmur. ABDOMEN: Soft, nontender. Bowel sounds are heard. No organomegaly noted. EXTREMITIES: 2+ peripheral pulses with no evidence of peripheral edema and no calf tenderness noted. NEUROLOGIC EXAMINATION: Patient is awake, alert and oriented x3. FINAL ASSESSMENT AND PLAN: Elevated troponin, flat trend, not indicative acute coronary syndrome Brittle diabetes, managed per endocrinology Dehydration Chronic kidney disease Valvular heart disease PLAN: Continue home antihypertensive regimen Further recommendations will be based on clinical course The patient has been seen and evaluated by practitioner and coordinating physician. Plan of care has been reviewed and agreed upon by Dr Hairston. Past Medical History Past Medical History: CVA/TIA, Dialysis, Eye Disorder, Hypertension, Renal Disease, Seizure Disorder Additional Past Medical History / Comment(s): ESRD with hemodialysis M/W/F, IDDM type 1, DKA, neuropathy bilateral legs/feet, diabetic retinopathy/legally blind, RLS, recent hospitalizations for gastritis, severe hypokalemia, fluid retention in abdomin/legs. History of Any Multi-Drug Resistant Organisms: None Reported Past Surgical History: Appendectomy, Section, Cholecystectomy Additional Past Surgical History / Comment(s): fistula left arm Past Anesthesia/Blood Transfusion Reactions: No Reported Reaction Past Psychological History: No Psychological Hx Reported Additional Psychological History / Comment(s): Pt resides with her father and pt's 2 children. Pt gets to dialysis by grandparents/family or cab. Smoking Status: Never smoker Past Alcohol Use History: None Reported Past Drug Use History: None Reported - Past Family History Mother Family Medical History: Cancer, Hypertension Additional Family Medical History / Comment(s): Thyroid cancer, bipolar Father Family Medical History: Seizure Disorder Additional Family Medical History / Comment(s): Epilepsy Medications and Allergies Home Medications Medication Instructions Recorded Confirmed Type Aspirin EC [Ecotrin Low Dose] 81 mg PO DAILY 04/03/21 06/11/21 History Carvedilol [Coreg] 25 mg PO BID 04/03/21 06/11/21 History Ergocalciferol (Vitamin D2) 1,250 mcg PO COPELAND 04/03/21 06/11/21 History [Drisdol (50,000 Iu)] Furosemide [Lasix] 40 mg PO BID 04/03/21 06/11/21 History INSULIN LISPRO (HumaLOG) [humaLOG] See Protocol SQ AC-TID 04/03/21 06/11/21 History Isosorbide Mononitrate ER [Imdur] 30 mg PO HS 04/03/21 06/11/21 History Acetaminophen Tab [Tylenol] 650 mg PO Q6HR PRN #30 tab 04/09/21 06/11/21 Rx amLODIPine [Norvasc] 10 mg PO DAILY 30 Days #30 tab 04/15/21 06/11/21 Rx cloNIDine HCL [Catapres] 0.3 mg PO TID 30 Days #90 tab 04/15/21 06/11/21 Rx Escitalopram [Lexapro] 20 mg PO DAILY 04/17/21 06/11/21 History Irbesartan [Avapro] 75 mg PO DAILY 04/17/21 06/11/21 History hydrALAZINE HCL [Apresoline] 100 mg PO TID 04/17/21 06/11/21 History rOPINIRole HCL [Requip] 0.5 mg PO HS 04/17/21 06/11/21 History Glucagon Emergency Kit 1 mg IM ONCE PRN 05/29/21 06/11/21 History Insulin Glargine [Lantus Vial] 15 unit SQ DAILY #0 05/31/21 06/11/21 Rx Sevelamer [Renvela] 800 mg PO TID-W/MEALS 30 Days #90 05/31/21 06/11/21 Rx tab Pantoprazole Sodium [Protonix] 40 mg PO BID 30 Days #60 tab 06/04/21 06/11/21 Rx Allergies Allergy/AdvReac Type Severity Reaction Status Date / Time Fish Containing Products Allergy Rash/Hives Verified 06/11/21 15:51 [Fish] iodine Allergy Anaphylaxis Verified 06/11/21 15:51 Physical Exam Vitals: Vital Signs Temp Pulse Pulse Resp BP BP Pulse Ox 06/12/21 04:00 71 18 170/84 99 06/12/21 00:00 97.5 F L 75 16 167/85 98 06/11/21 22:28 177/109 06/11/21 22:25 98 F 16 177/109 06/11/21 20:00 97.9 F 82 18 166/98 99 06/11/21 17:48 97.1 F L 83 16 234/126 97 06/11/21 17:21 98.4 F 67 16 169/98 99 06/11/21 15:32 96.8 F L 06/11/21 13:50 94.5 F L 66 16 183/107 99 06/11/21 12:35 67 18 141/130 99 Intake and Output 01/06/12/21 06/12/21 22:59 06:59 14:59 Intake Total 785 485 Output Total 2700 Balance -1915 485 Intake: Oral 485 485 Hemodialysis 300 Output: Hemodialysis 2700 Other: # Voids 0 Weight 65.771 kg 66.5 kg Results 06/12/21 03:14 06/12/21 03:14 Cardiac Enzymes 06/11/21 06/11/21 06/12/21 Range/Units 14:00 14:00 03:14 AST 33 (14-36) U/L Troponin I 0.219 H* 0.171 H* (0.000-0.034) ng/mL Coagulation 06/11/21 Range/Units 13:04 PT 10.3 (9.0-12.0) sec APTT 24.9 (22.0-30.0) sec CBC 06/11/21 06/12/21 Range/Units 13:04 03:14 WBC 12.4 H 7.3 (3.8-10.6) k/uL RBC 4.56 4.18 (3.80-5.40) m/uL Hgb 13.9 12.6 (11.4-16.0) gm/dL Hct 41.1 38.4 (34.0-46.0) % Plt Count 270 207 (150-450) k/uL Comprehensive Metabolic Panel 06/11/21 06/12/21 Range/Units 14:00 03:14 Sodium 131 L 129 L (137-145) mmol/L Potassium 4.3 4.3 (3.5-5.1) mmol/L Chloride 94 L 93 L (98-107) mmol/L Carbon Dioxide 26 27 (22-30) mmol/L BUN 60 H 33 H (7-17) mg/dL Creatinine 8.17 H* 5.92 H (0.52-1.04) mg/dL Glucose 113 H 281 H (74-99) mg/dL Calcium 9.7 9.3 (8.4-10.2) mg/dL AST 33 (14-36) U/L ALT 22 (4-34) U/L Alkaline Phosphatase 131 H (38-126) U/L Total Protein 6.7 (6.3-8.2) g/dL Albumin 3.9 (3.5-5.0) g/dL Current Medications Generic Name Dose Route Start Last Admin Trade Name Freq PRN Reason Stop Dose Admin Acetaminophen 650 mg 06/11/21 17:52 Acetaminophen Tab 325 Mg Tab PO Q6HR PRN Fever and/ or Pain Amlodipine Besylate 10 mg 06/11/21 18:00 06/11/21 19:04 Amlodipine 10 Mg Tab PO 10 mg DAILY [facility] Administration Aspirin 81 mg 06/12/21 09:00 Aspirin 81 Mg PO DAILY [facility] Carvedilol 25 mg 06/11/21 21:00 06/11/21 21:08 Carvedilol 12.5 Mg Tab PO 25 mg BID [facility] Administration Clonidine 0.3 mg 06/11/21 18:00 06/12/21 00:59 Clonidine Hcl 0.1 Mg Tab PO Not Given TID [facility] Ergocalciferol 1,250 mcg 06/13/21 09:00 Ergocalciferol 1,250 Mcg (50,000 Iu) Capsule PO COPELAND [facility] Escitalopram Oxalate 20 mg 06/12/21 09:00 Escitalopram 20 Mg Tab PO DAILY [facility] Furosemide 40 mg 06/12/21 09:00 Furosemide 40 Mg Tab PO BID@0900,1600 [facility] Hydralazine HCl 100 mg 06/11/21 18:00 06/12/21 00:59 Hydralazine Hcl 50 Mg Tab PO Not Given TID [facility] Insulin Aspart 0 unit 06/11/21 17:30 06/12/21 06:35 Insulin Aspart (Novolog) 100 Unit/Ml Vial SQ 7 unit ACHS [facility] Administration Protocol Insulin Detemir 15 unit 06/11/21 18:30 06/11/21 20:31 Insulin Detemir (Levemir) 100 Unit/Ml Syr SQ Not Given DAILY [facility] Isosorbide Mononitrate 30 mg 06/11/21 21:00 06/11/21 21:08 Isosorbide Mononitrate Er 30 Mg Tab.Er.24h PO 30 mg HS [facility] Administration Losartan Potassium 25 mg 06/11/21 18:00 06/11/21 19:04 Losartan 25 Mg Tab PO 25 mg DAILY [facility] Administration Ondansetron HCl 4 mg 06/12/21 00:47 06/12/21 06:34 Ondansetron 4 Mg/2 Ml Vial IVP 4 mg Q6HR PRN Administration Nausea And Vomiting Pantoprazole Sodium 40 mg 06/11/21 21:00 06/11/21 21:08 Pantoprazole 40 Mg Tablet PO 40 mg BID [facility] Administration Ropinirole HCl 0.5 mg 06/11/21 21:00 06/11/21 21:08 Ropinirole Hcl 0.25 Mg Tab PO 0.5 mg HS [facility] Administration Sevelamer Carbonate 800 mg 06/12/21 07:30 06/12/21 06:39 Sevelamer 800 Mg Tab PO Not Given TID-W/MEALS [facility] Intake and Output 06/11/21 06/12/21 06/12/21 22:59 06:59 14:59 Intake Total 785 485 Output Total 2700 Balance -1915 485 Intake: Oral 485 485 Hemodialysis 300 Output: Hemodialysis 2700 Other: # Voids 0 Weight 65.771 kg 66.5 kg 06/12/21 03:14 06/12/21 03:14
[2021-06-12] MEDS ORDERED: cloNIDine 0.3 MG/24HR PATCH TRANSDERM SCH (12:30)
--- NOTE | 2021-06-12 13:52 | ECHOF ---
Referral Reason:high trops MEASUREMENTS -------- HEIGHT: 167.6 cm WEIGHT: 66.2 kg BP: 170/84 IVSd: 1.3 cm (0.6 - 1.1) LVIDd: 4.2 cm (3.9 - 5.3) LVPWd: 1.3 cm (0.6 - 1.1) EDV(Teich): 81 ml IVSs: 1.9 cm LVIDs: 2.7 cm LVPWs: 1.8 cm %IVS Thck: 44 % ESV(Teich): 27 ml EF(Teich): 67 % %FS: 37 % SV(Teich): 54 ml LA Diam: 3.2 cm (2.7 - 3.8) RVIDd: 3.0 cm (< 3.3) LALs A4C: 5.3 cm LAAs A4C: 14.0 cm LAESV A-L A4C: 32 ml LAESV MOD A4C: 31 ml LALs A2C: 4.7 cm LAAs A2C: 13.1 cm LAESV A-L A2C: 31 ml LAESV MOD A2C: 30 ml LAESV(A-L): 33 ml LAESV Index (A-L): 18.88 ml/m Ao Diam: 2.4 cm (2.0 - 3.7) AV Cusp: 1.6 cm (1.5 - 2.6) EPSS: 0.6 cm MV E Km: 1.08 m/s MV DecT: 203 ms MV Dec Lamar: 5.3 m/s MV A Km: 1.01 m/s MV E/A Ratio: 1.07 MV PHT: 59 ms AV Vmax: 1.89 m/s AV maxP.26 mmHg AV Vmax: 1.89 m/s AV Vmean: 1.45 m/s AV maxP.26 mmHg AV meanP.02 mmHg AV Env.Ti: 245 ms AV VTI: 35.5 cm TR Vmax: 2.41 m/s TR maxP.15 mmHg RAP: 5.00 mmHg RVSP: 28.15 mmHg MV EF SLOPE: 61.12 mm/s (70 - 150) MV EXCURSION: 16.64 mm (> 18.000) FINDINGS -------- Sinus rhythm. This was a technically good study. The left ventricular size is normal. There is mild concentric left ventricular hypertrophy. Overa ll left ventricular systolic function is normal with, an EF between 60 - 65 %. The right ventricle is normal in size. Normal LA size by volume 22+/-6 ml/m2. The right atrium is normal in size. Interatrial and interventricular septum intact. The aortic valve is trileaflet, and appears structurally normal. No aortic stenosis or regurgitation. Peak/mean gradient across the Aortic Valve is 14.26mmHg / 9.02mmHg. The mitral valve is normal. Mild tricuspid regurgitation present. Right ventricular systolic pressure is normal at < 35 mmHg. Trace/mild (physiologic) pulmonic regurgitation. The aortic root size is normal. Normal inferior vena cava with normal inspiratory collapse consistent with estimated right atrial pre ssure of 5 mmHg. There is a small pericardial effusion located near the left ventricle. CONCLUSIONS -------- 1. The left ventricular size is normal. 2. There is mild concentric left ventricular hypertrophy. 3. Overall left ventricular systolic function is normal with, an EF between 60 - 65 %. 4. The aortic valve is trileaflet, and appears structurally normal. No aortic stenosis or regurgitati on. 5. Mild tricuspid regurgitation present. 6. Trace/mild (physiologic) pulmonic regurgitation. 7. There is a small pericardial effusion located near the left ventricle. [employer] SALES MANAGER: Gisele Iniguez, [facility]
--- NOTE | 2021-06-12 14:20 | P.CNNES ---
History of Present Illness Consult date: 06/12/21 Reason for Consult: mental status changes History of Present Illness: The patient is a 30-year-old female who [facility], [facility] telemedicine. The patient is being seen for concerns regarding mental status changes. The patient herself states that she was told that by the set up mold technician that she had a seizure, during dialysis. The patient says she does not remember yesterday. She says that following dialysis she was feeling "shaky and sweaty". The patient reports having had a previous "seizure" associated with dialysis, a short time ago, when she was in [place]. She reports feeling "shaky and sweaty" after that episode, as well. In reviewing the chart and speaking with the patient's nurse, there is no report of a seizure. The patient reportedly was found by her father, at home, poorly responsive. She had been eating very poorly for the previous few days. She had been experiencing nausea and diarrhea. The patient was reportedly brought into the hospital late yesterday. She was severely hypertensive. She then had dialysis this morning and the hypertension has improved. Dialysis was reportedly stopped early, because the patient was complaining of feeling as if her blood sugar was low. The patient's blood sugar was checked at that time and was not found to be low. In review of the chart, the patient reportedly has multiple medical problems. She is a very brittle diabetic. She reportedly has had a history of a stroke. She states that she is blind, secondary to diabetic retinopathy. She also has end-stage renal disease, secondary to diabetes. Review of Systems As per history of present illness Past Medical History Past Medical History: CVA/TIA, Dialysis, Eye Disorder, Hypertension, Renal Disease, Seizure Disorder Additional Past Medical History / Comment(s): ESRD with hemodialysis M/W/F, IDDM type 1, DKA, neuropathy bilateral legs/feet, diabetic retinopathy/legally blind, RLS, recent hospitalizations for gastritis, severe hypokalemia, fluid retention in abdomin/legs. There is no definite diagnosis of seizure disorder History of Any Multi-Drug Resistant Organisms: None Reported Past Surgical History: Appendectomy, Section, Cholecystectomy Additional Past Surgical History / Comment(s): fistula left arm Past Anesthesia/Blood Transfusion Reactions: No Reported Reaction Past Psychological History: No Psychological Hx Reported Additional Psychological History / Comment(s): Pt resides with her father and pt's 2 children. Pt gets to dialysis by grandparents/family or cab. Smoking Status: Never smoker Past Alcohol Use History: None Reported Past Drug Use History: None Reported - Past Family History Mother Family Medical History: Cancer, Hypertension Additional Family Medical History / Comment(s): Thyroid cancer, bipolar Father Family Medical History: Seizure Disorder Additional Family Medical History / Comment(s): Epilepsy Medications and Allergies Home Medications Medication Instructions Recorded Confirmed Type Aspirin EC [Ecotrin Low Dose] 81 mg PO DAILY 04/03/21 06/11/21 History Carvedilol [Coreg] 25 mg PO BID 04/03/21 06/11/21 History Ergocalciferol (Vitamin D2) 1,250 mcg PO COPELAND 04/03/21 06/11/21 History [Drisdol (50,000 Iu)] Furosemide [Lasix] 40 mg PO BID 04/03/21 06/11/21 History INSULIN LISPRO (HumaLOG) [humaLOG] See Protocol SQ AC-TID 04/03/21 06/11/21 History Isosorbide Mononitrate ER [Imdur] 30 mg PO HS 04/03/21 06/11/21 History Acetaminophen Tab [Tylenol] 650 mg PO Q6HR PRN #30 tab 04/09/21 06/11/21 Rx amLODIPine [Norvasc] 10 mg PO DAILY 30 Days #30 tab 04/15/21 06/11/21 Rx cloNIDine HCL [Catapres] 0.3 mg PO TID 30 Days #90 tab 04/15/21 06/11/21 Rx Escitalopram [Lexapro] 20 mg PO DAILY 04/17/21 06/11/21 History Irbesartan [Avapro] 75 mg PO DAILY 04/17/21 06/11/21 History hydrALAZINE HCL [Apresoline] 100 mg PO TID 04/17/21 06/11/21 History rOPINIRole HCL [Requip] 0.5 mg PO HS 04/17/21 06/11/21 History Glucagon Emergency Kit 1 mg IM ONCE PRN 05/29/21 06/11/21 History Insulin Glargine [Lantus Vial] 15 unit SQ DAILY #0 05/31/21 06/11/21 Rx Sevelamer [Renvela] 800 mg PO TID-W/MEALS 30 Days #90 05/31/21 06/11/21 Rx tab Pantoprazole Sodium [Protonix] 40 mg PO BID 30 Days #60 tab 06/04/21 06/11/21 Rx Allergies Allergy/AdvReac Type Severity Reaction Status Date / Time Fish Containing Products Allergy Rash/Hives Verified 06/11/21 15:51 [Fish] iodine Allergy Anaphylaxis Verified 06/11/21 15:51 Physical Examination - Vital Signs Vital Signs: Vital Signs Temp Pulse Pulse Resp BP BP Pulse Ox 06/12/21 08:00 99.2 F 74 16 163/89 96 06/12/21 04:00 71 18 170/84 99 06/12/21 00:00 97.5 F L 75 16 167/85 98 06/11/21 22:28 177/109 06/11/21 22:25 98 F 16 177/109 06/11/21 20:00 97.9 F 82 18 166/98 99 06/11/21 17:48 97.1 F L 83 16 234/126 97 06/11/21 17:21 98.4 F 67 16 169/98 99 06/11/21 15:32 96.8 F L 06/11/21 13:50 94.5 F L 66 16 183/107 99 06/11/21 12:35 67 18 141/130 99 Intake and Output 06/11/21 06/12/21 06/12/21 22:59 06:59 14:59 Intake Total 785 725 Output Total 2700 Balance -1915 725 Intake: Oral 485 725 Hemodialysis 300 Output: Hemodialysis 2700 Other: # Voids 0 Weight 65.771 kg 66.5 kg Gen.: The patient is reclining in the bed. She is in no acute distress. She is slightly sleepy. She is thin. HEENT: Head is atraumatic, normocephalic. Fundus not visualized. There is no scleral icterus. Mucous membranes are moist. Neck: Supple Heart: Regular rate and rhythm Lungs: No respiratory distress Extremities: There is evidence of ecchymosis of the bilateral knees Neurological examination Mental status exam: The patient is awake, alert and oriented 3. Her speech is clear. There is no dysarthria or aphasia. Cranial nerves: Pupils are equal at 5 mm and nonreactive. Vision is absent. Extraocular movements are intact. There is no nystagmus. Facial sensation is intact. There is no facial asymmetry. Hearing is grossly intact. Uvula and palate are midline. Shoulder shrug is symmetric. Tongue protrudes midline. There is no evidence of tongue bite. Motor: Left icu nurse strength 3/5. Other left upper extremity muscle strength is 3- 4/5. Bilateral hip flexors 3-4/5. Bilateral ankle plantar and dorsiflexors 5/5 . Sensation: Grossly intact to light touch throughout Deep tendon reflexes: Absent throughout Coordination: Finger to nose testing is intact. Rapid alternating movements are intact. Results - Laboratory Findings CBC and BMP: 06/12/21 03:14 06/12/21 03:14 Abnormal Lab Findings: Abnormal Labs 06/11/21 06/11/21 06/11/21 12:34 13:04 13:04 WBC 12.4 H RDW 16.1 H Neutrophils # 10.4 H D-Dimer ABG pO2 ABG HCO3 ABG Total CO2 Sodium Chloride BUN Creatinine Glucose POC Glucose (mg/dL) 158 H Alkaline Phosphatase Troponin I Urine Protein 4+ H Urine Glucose (UA) 3+ H Urine Blood Trace H Ur Squamous Epith Cells 7 H Urine Bacteria Rare H 06/11/21 06/11/21 06/11/21 14:00 14:00 14:22 WBC RDW Neutrophils # D-Dimer ABG pO2 ABG HCO3 ABG Total CO2 Sodium 131 L Chloride 94 L BUN 60 H Creatinine 8.17 H* Glucose 113 H POC Glucose (mg/dL) 102 H Alkaline Phosphatase 131 H Troponin I 0.219 H* Urine Protein Urine Glucose (UA) Urine Blood Ur Squamous Epith Cells Urine Bacteria 06/11/21 06/11/21 06/11/21 18:40 20:53 21:17 WBC RDW Neutrophils # D-Dimer 0.87 H ABG pO2 ABG HCO3 ABG Total CO2 Sodium Chloride BUN Creatinine Glucose POC Glucose (mg/dL) 133 H 141 H Alkaline Phosphatase Troponin I Urine Protein Urine Glucose (UA) Urine Blood Ur Squamous Epith Cells Urine Bacteria 06/11/21 06/12/21 06/12/21 22:37 00:05 03:14 WBC RDW Neutrophils # D-Dimer ABG pO2 78 L ABG HCO3 30 H ABG Total CO2 31 H Sodium Chloride BUN Creatinine Glucose POC Glucose (mg/dL) 202 H Alkaline Phosphatase Troponin I 0.171 H* Urine Protein Urine Glucose (UA) Urine Blood Ur Squamous Epith Cells Urine Bacteria 06/12/21 06/12/21 06/12/21 03:14 03:14 05:58 WBC RDW 15.8 H Neutrophils # D-Dimer ABG pO2 ABG HCO3 ABG Total CO2 Sodium 129 L Chloride 93 L BUN 33 H Creatinine 5.92 H Glucose 281 H POC Glucose (mg/dL) 381 H Alkaline Phosphatase Troponin I Urine Protein Urine Glucose (UA) Urine Blood Ur Squamous Epith Cells Urine Bacteria Assessment and Plan Assessment: 1. Altered mental status, multifactorial:possibly secondary to hypoglycemia versus hypertension versus hyponatremia versus dehydration versus acute on chronic kidney injury 2. Reported history of "seizure disorder" 3. Poorly controlled diabetes mellitus 4. End-stage renal disease on hemodialysis Plan: 1. EEG 2. Would not start antiepileptic medication at this time 3. Your treatment of patient's hypertension 4. Continue hemodialysis 5. Continue supportive care 6. Seizure precautions Time with Patient: Greater than 30 (spent 40 minutes with patient via telemedicine)
[2021-06-12 16:29] LABS: Glucose,Whole Blood 64 mg/dL (75-99)
[2021-06-12 16:49] LABS: Glucose,Whole Blood 108 mg/dL (75-99)
[2021-06-12] MEDS ORDERED: CEFEPIME 1 GM in SODIUM CHLORIDE 0.9% 100 ML IVPB SCH (17:15)
[2021-06-12] MEDS ORDERED: CEFEPIME 1 GM in SODIUM CHLORIDE 0.9% 50 ML IVPB SCH (18:00)
--- NOTE | 2021-06-12 19:15 | PN ---
PROGRESS NOTE DATE OF SERVICE: 06/12/2021 This 30-year-old woman with a past medical history of multiple medical problems was admitted with change in mental status. Multiple factors, including hypoglycemia, hypertension and renal failure have been considered. Seizure disorder is also questionable. Troponin is also elevated. Two-D echo showed no mention of acute abnormality. Ejection fraction was found to be normal. Multiple consultants are following the patient closely. The patient is much more alert today. Past medical history reviewed. REVIEW OF SYSTEMS: CARDIOVASCULAR SYSTEM: No angina. RESPIRATION: As mentioned earlier. GI: As mentioned earlier. : No dysuria. NERVOUS SYSTEM: As mentioned earlier. CURRENT MEDICATIONS: Reviewed. They include Tylenol, Norvasc, aspirin, Coreg, Zosyn. Other medications are reviewed. PHYSICAL EXAMINATION: Patient is alert, oriented x2. Pulse 68, blood pressure 148/88, respiration 18, temperature 96.6, pulse ox 99% on room air. HEENT: Conjunctivae normal. NECK: No jugular venous distention. CARDIOVASCULAR: S1, S2 muffled. RESPIRATION: Breath sounds diminished at the bases. A few scattered rhonchi. ABDOMEN: Soft. NERVOUS SYSTEM: No focal deficit. LABS: CBC within normal limits. Sodium _ntd, potassium 4.3, creatinine 5.99, glucose 381, 191 and Troponin 0.171. ASSESSMENT: 1. Change in mental status, multifactorial, secondary to acute hypoglycemia. 2. Acute bilateral multifocal pneumonia, possibly Gram-negative. Sepsis to be ruled out. 3. Increased white count. 4. Hyponatremia. 5. Troponin 0.219. Rule out acute coronary event or acute myocardial infarction. 6. History of recent vomiting. 7. Rule out seizure disorder. 8. Accelerated hypertension and hypertensive urgency. 9. History of noncompliance. 10.History of cerebrovascular accident, transient ischemic attack. 11.History of hypertension. 12.History of seizure disorder. 13.History of renal disease. 14.Diabetes mellitus, type 1. 15.History of peripheral neuropathy. 16.History of legal blindness. 17.History of restless legs syndrome. 18.History of gastritis recently. 19.History of multiple electrolyte imbalances. 20.History of section. 21.FULL CODE. RECOMMENDATIONS AND DISCUSSION: In this 30-year-old woman who presented with multiple complex medical issues, we will monitor the patient closely, continue the current medications, continue symptomatic treatment. I would continue the antibiotics. Cultures are negative at this time. I would also recommend infectious disease evaluation regarding possible multifocal pneumonia. Obtain the cultures. Closely follow with Nephrology. We will initiate cefepime. Guarded prognosis. Further recommendations to follow. The possibility of cavitating pneumonia is being considered. See orders for details. MMODL / IJN: [id number] / MTDD
[2021-06-12] MEDS: CEFEPIME 1 GM in SODIUM CHLORIDE 0.9% 50 ML IVPB SCH (20:04)
[2021-06-12] MEDS: ISOSORBIDE MONONITRATE ER 30 MG TAB.ER.24H PO SCH (20:05)
[2021-06-12] MEDS ORDERED: diphenhydrAMINE 50 MG/ML 1 ML VIAL IVP STA ×2 (20:06→22:06)
[2021-06-12 21:40] LABS: Glucose,Whole Blood 212 mg/dL (75-99)
[2021-06-13] MEDS: SEVELAMER 800 MG TAB PO SCH ×3 (06:34→17:15)
[2021-06-13] MEDS: INSULIN ASPART (NovoLOG) 100 UNIT/ML VIAL SQ SCH ×4 (06:34→20:59)
[2021-06-13] MEDS: CEFEPIME 1 GM in SODIUM CHLORIDE 0.9% 50 ML IVPB SCH ×2 (06:35→17:16)
[2021-06-13 06:42] LABS: Glucose,Whole Blood 343 mg/dL (75-99)
[2021-06-13 08:29] LABS: Basophils # (A) 0.1 k/uL (0-0.2); Basophils % (A) 1 %; Eosinophils # (A) 0.3 k/uL (0-0.7); Eosinophils % (A) 5 %; HCT 37.3 % (34.0-46.0); HGB 11.8 gm/dL (11.4-16.0); Lymphocytes # (A) 1.6 k/uL (1.0-4.8); Lymphocytes % (A) 27 %; MCHC 31.7 g/dL (31.0-37.0); MCV 94.7 fL (80.0-100.0); Mean Platelet Volume 9.5; Monocytes # (A) 0.5 k/uL (0-1.0); Monocytes % (A) 9 %; Neutrophils # (A) 3.2 k/uL (1.3-7.7); Neutrophils % (A) 55 %; Platelet Count 212 k/uL (150-450); RBC 3.94 m/uL (3.80-5.40); WBC 5.9 k/uL (3.8-10.6)
[2021-06-13] MEDS: ASPIRIN 81 MG PO SCH (08:51)
[2021-06-13] MEDS: ESCITALOPRAM 20 MG TAB PO SCH (08:51)
[2021-06-13] MEDS: hydrALAZINE HCL 50 MG TAB PO SCH ×3 (08:51→22:12)
[2021-06-13] MEDS: amLODIPine 10 MG TAB PO SCH (08:51)
[2021-06-13] MEDS: PANTOPRAZOLE 40 MG TABLET PO SCH ×2 (08:51→22:12)
[2021-06-13] MEDS: LOSARTAN 25 MG TAB PO SCH (08:51)
[2021-06-13] MEDS: INSULIN DETEMIR (LEVEMIR) 100 UNIT/ML SYR SQ SCH (08:52)
[2021-06-13] MEDS: cloNIDine HCL 0.1 MG TAB PO SCH ×3 (08:52→22:12)
[2021-06-13] MEDS: carvediloL 12.5 MG TAB PO SCH ×2 (08:52→22:13)
[2021-06-13] MEDS: FUROSEMIDE 40 MG TAB PO SCH ×2 (08:52→17:16)
[2021-06-13 08:54] LABS: Calcium 9.3 mg/dL (8.4-10.2); Potassium 4.7 mmol/L (3.5-5.1)
[2021-06-13] MEDS ORDERED: ERGOCALCIFEROL 1,250 MCG (50,000 IU) CAPSULE PO SCH (09:00)
[2021-06-13 11:59] LABS: Glucose,Whole Blood 222 mg/dL (75-99)
--- NOTE | 2021-06-13 12:06 | P.PN ---
Subjective Progress Note Date: 06/13/21 This is Emerson jones NP, dictating a progress note on behalf of Dr. Hairston. Patient was interviewed and examined. Patient reports feeling somewhat better today. She denies chest pain and shortness of breath. Blood pressure appears to be under control this time. Echocardiogram completed yesterday demonstrates a normal left ventricular size, mild concentric left ventricular hypertrophy, overall ejection fraction between 60-65%, normal aortic valve with no stenosis or regurgitation, mild tricuspid regurgitation, trace/mild physiologic pulmonic regurgitation, small pericardial effusion in the left ventricle. GENERAL: Well-appearing, well-nourished and in no acute distress. NECK: Supple without JVD or thyromegaly. LUNGS: Breath sounds clear to auscultation bilaterally. Respiration equal and u nlabored. No wheezes, rales or rhonchi. HEART: Regular rate and rhythm without murmurs, rubs or gallops. S1 and S2 heard. EXTREMITIES: Normal range of motion, no edema. No clubbing or cyanosis. Pe ripheral pulses intact and strong. VITALS: [Temp 98.3, pulse 76, respirations 16, blood pressure 136/78, O2 saturation 98% on room air] TELEMETRY: [Normal sinus rhythm] LABS: [White count 5.9, hemoglobin 11.8, platelets 212, sodium 133, potassium 4.7, B1 35, creatinine 6.07] IMPRESSION: [Elevated troponin, flat trend, not indicative of acute coronary syndrome Brittle diabetes Dehydration Chronic kidney disease Valvular heart disease] PLAN: [Continue medications as prescribed Continue dialysis per nephrology] The patient has been seen and evaluated. Plan of care has been reviewed and ag scotty upon by Dr. Hairston. Objective - Vital Signs Vital signs: Vital Signs Temp 97.7 F 06/12/21 20:00 Pulse 70 06/13/21 04:00 Resp 16 06/13/21 04:00 BP 153/73 06/13/21 04:00 Pulse Ox 97 06/13/21 04:00 Intake & Output 06/12/21 06/13/21 06/13/21 18:59 06:59 18:59 Intake Total 725 1020 Output Total 1999 Balance -1275 1020 Intake: Intake, IV Titration 50 Amount Cefepime 1 gm In Sodium 50 Chloride 0.9% 50 ml @ 12. 5 mls/hr IVPB Q12H [facility] Rx #:[id number] Oral 725 970 Output: Hemodialysis 2000 Other: # Voids 0 - Labs CBC & Chem 7: 06/13/21 08:01 06/13/21 08:01 Labs: Abnormal Lab Results - Last 24 Hours (Table) 06/12/21 06/12/21 06/12/21 Range/Units 11:49 16:27 16:48 POC Glucose (mg/dL) 191 H 64 L 108 H (75-99) mg/dL 06/12/21 06/13/21 Range/Units 20:42 06:10 POC Glucose (mg/dL) 212 H 343 H (75-99) mg/dL Microbiology - Last 24 Hours (Table) 06/11/21 18:40 Blood Culture - Preliminary Blood No Growth after 24 hours
--- NOTE | 2021-06-13 13:22 | PN ---
PROGRESS NOTE Patient is seen for followup for end-stage renal disease. Patient was admitted to the hospital with mental status changes, severe hyperglycemia, severe volume overload and uncontrolled hypertension. She has had an extra treatment of hemodialysis. Patient is tolerating her diet well. She has had 4.7 L of ultrafiltration over the last couple of days. Blood pressure has improved; in fact, it was lower yesterday during treatment. On examination today, blood pressure 136/78, heart rate 76 per minute. She is afebrile. EXAMINATION OF THE HEART: S1 and S2. EXAMINATION OF LUNGS: Bilateral breath sounds are heard. Abdomen is soft, non-tender. Examination of lower extremities shows no significant edema. COMPTOMETER OPERATOR EXAM: Grossly intact. Labs show sodium 133, potassium 4.7, BUN 35, creatinine 6.0, hemoglobin 11.8. ASSESSMENT: 1. End-stage renal disease, on hemodialysis on a Monday, Monday, Monday schedule. 2. Volume overload, currently improved. 3. Hypertensive urgency with severe uncontrolled hypertension, partly volume-related, currently improved. 4. Severe hyperglycemia, now improved. Patient is a brittle diabetic. Her sugar had dropped down to 64; currently staying at about 200 to 300. 5. Chronic kidney disease. PLAN: Hemodialysis in a.m. Goal UF of about 2 L as tolerated. MMODL / IJN: [id number] /
[2021-06-13 16:34] LABS: Glucose,Whole Blood 70 mg/dL (75-99)
--- NOTE | 2021-06-13 17:58 | PN ---
PROGRESS NOTE DATE OF SERVICE: 06/13/2021 This 30-year-old woman admitted with multiple medical problems, including change in mental status, hyperlipidemia, bilateral multifocal pneumonia, is being closely monitored at this time. The chest CT was personally reviewed by me. It showed bilateral pneumonic process, some of which may be even cavitating. Dr. Gracia is also consulting for this patient. The blood cultures are pending at this time. Multiple consultants are following the patient closely. Past medical history reviewed. REVIEW OF SYSTEMS: CARDIOVASCULAR SYSTEM: No angina. RESPIRATION: As mentioned earlier. GI: As mentioned earlier. : No dysuria. NERVOUS SYSTEM: No numbness, weakness. CURRENT MEDICATIONS: Reviewed. They include Tylenol, Norvasc, aspirin, Coreg, cefepime, Catapres. PHYSICAL EXAMINATION: Patient is alert and oriented x3. Pulse 72, blood pressure 132/70, respirations 16, temperature 97.9, pulse ox 97% on room air. HEENT: Conjunctivae normal. NECK: No jugular venous distention. CARDIOVASCULAR: S1, S2 muffled. RESPIRATION: Breath sounds diminished at the bases. A few scattered rhonchi. ABDOMEN: Soft. NERVOUS SYSTEM: No focal deficit. LABS: Creatinine 6.07. CRP is 1.6. ASSESSMENT: 1. Change in mental status, multifactorial, possibly secondary to acute hypoglycemia. 2. Acute bilateral multifocal pneumonia, possibly Gram-negative sepsis, and cavitating pneumonia to be ruled out. 3. Increased white count. 4. Hyponatremia. 5. Troponin 0.219. Rule out acute coronary event or acute myocardial infarction. 6. History of recent vomiting. 7. Rule out seizure disorder. 8. Accelerated hypertension and hypertensive urgency. 9. History of noncompliance. 10.History of cerebrovascular accident, transient ischemic attack. 11.History of hypertension. 12.History of seizure disorder. 13.History of renal disease. 14.Diabetes mellitus, type 2. 15.Peripheral neuropathy. 16.History of legal blindness. 17.History of restless legs syndrome. 18.History of gastritis recently. 19.History of multiple electrolyte abnormalities. 20.History of section. 21.FULL CODE. RECOMMENDATIONS AND DISCUSSION: I recommend to continue current medications, continue with the monitoring, symptomatic treatment. Infectious disease evaluation. The patient is on broad-spectrum IV antibiotics. We consulted Dr. Gracia. We will also consult Pulmonary for possible bronchoscopy and other changes. Neurology also has been consulted. Overall prognosis guarded because of multiple complex medical issues. Further recommendations to follow. See orders for further details. MMODL / IJN: [id number] /
[2021-06-13 20:37] LABS: Glucose,Whole Blood 130 mg/dL (75-99)
--- NOTE | 2021-06-13 21:37 | P.CONS ---
History of Present Illness - Reason for Consult Consult date: 06/13/21 cavitatory pneumonia Requesting physician: Hector Pena - Chief Complaint unresponsivness x 1 day - History of Present Illness History of present illness : Patient is a 30-year-old female who was brought into the ER 2 days ago by EMS after apparently the patient was found in her bedroom unresponsive on arrival with EMS patient was noted to be hypoglycemic with a blood sugar of 36 she was given D50 and subsequently brought into the hospital for further evaluation apparently the patient eventually a physician she was sick and vomiting right before and the lactic any of her morning medication on presentation to the hospital patient was hypothermic mildly however subsequently normal temperature over the last 2 days patient did have mild elevated white count elevation of 12.4 her repeat is normal with no left shift D-dimer is mildly elevated BUN/creatinine is elevated urine is negative coronavirus and was negative patient did have a chest x-ray bilateral multifocal pneumonia and cardiomegaly patient did have a CT of the chest numerous patchy variable sized somewhat rounded areas is visible. Both lungs appearance is nonspecific infectious disease more likely patient also have an echocardiogram no evidence of any vegetation infectious disease was consulted today with concern for possible DVT to the pneumonia which has not been described on the patient report and concern for possible septic emboli patient on today's evaluation denies having any fever or any discomfort extensively any chest pain shortness of breath or cough no further nausea vomiting no abdominal pain no diarrhea and do not have a history of IV drug use blood culture evaluation has been negative Review of system: CONSTITUTIONAL: Positive for weakness denies fever. EYES: No complaint. ENT: No complaint. RESPIRATORY: No complaint. CARDIOVASCULAR: No complaint. GENITOURINARY: No complaint. GASTROINTESTINAL: As per history of present illness. MUSCULOSKELETAL: No complaint. INTEGUMENTARY: No complaint. PSYCHOLOGIC: No complaint. ENDOCRINE: As per history of present illness. NEUROLOGIC: No complaint. Past medical history : Reviewed, documented below Past surgical history : Reviewed, documented below Social history: Reviewed, documented below Medications: Reviewed, as documented below EXAMINATION: Vital sigans= Reviewed and documented below GENERAL DESCRIPTION: Middle-aged female lying in bed, no distress. No tachypnea or accessory muscle of respiration use. HEENT: Shows Pallor , no scleral icterus. Oral mucous membrane is dry. NECK: Trachea central, no thyromegaly. LUNGS: Unlabored breathing. Clear to auscultation anteriorly. No wheeze or crackle. HEART: S1, S2, regular rate and rhythm. ABDOMEN: Soft, no tenderness , guarding or rigidity EXTREMITIES: No edema of feet. SKIN: No rash, no masses palpable. NEUROLOGICAL: The patient is awake, alert, oriented x3, mood and affect normal. LABS AND RADIOLOGY: Reviewed results see below Assessment : Patient presented to hospital with unresponsiveness secondary to hypoglycemia in this patient did have a focal pneumonia seen on the CT of the chest no mention of cavitary lesion the primary team is concerned patient did not have any fever elevated white count blood culture has been negative initial echo was negative clinically not behaving as septic emboli or endocarditis though not entirely excluded Plan: 1-we will repeat blood cultures x2 2-check a CRP procalcitonin and sed rate 3-we will review CT with the radiologist We will follow on clinical condition and cultures to further adjust medication if needed Thank you for this consultation we will follow the patient along with you Past Medical History Past Medical History: CVA/TIA, Dialysis, Eye Disorder, Hypertension, Renal Disease, Seizure Disorder Additional Past Medical History / Comment(s): ESRD with hemodialysis M/W/F, IDDM type 1, DKA, neuropathy bilateral legs/feet, diabetic retinopathy/legally blind, RLS, recent hospitalizations for gastritis, severe hypokalemia, fluid retention in abdomin/legs. There is no definite diagnosis of seizure disorder History of Any Multi-Drug Resistant Organisms: None Reported Past Surgical History: Appendectomy, Section, Cholecystectomy Additional Past Surgical History / Comment(s): fistula left arm Past Anesthesia/Blood Transfusion Reactions: No Reported Reaction Past Psychological History: No Psychological Hx Reported Additional Psychological History / Comment(s): Pt resides with her father and pt's 2 children. Pt gets to dialysis by grandparents/family or cab. Smoking Status: Never smoker Past Alcohol Use History: None Reported Past Drug Use History: None Reported - Past Family History Mother Family Medical History: Cancer, Hypertension Additional Family Medical History / Comment(s): Thyroid cancer, bipolar Father Family Medical History: Seizure Disorder Additional Family Medical History / Comment(s): Epilepsy Medications and Allergies Home Medications Medication Instructions Recorded Confirmed Type Aspirin EC [Ecotrin Low Dose] 81 mg PO DAILY 04/03/21 06/11/21 History Carvedilol [Coreg] 25 mg PO BID 04/03/21 06/11/21 History Ergocalciferol (Vitamin D2) 1,250 mcg PO COPELAND 04/03/21 06/11/21 History [Drisdol (50,000 Iu)] Furosemide [Lasix] 40 mg PO BID 04/03/21 06/11/21 History INSULIN LISPRO (HumaLOG) [humaLOG] See Protocol SQ AC-TID 04/03/21 06/11/21 History Isosorbide Mononitrate ER [Imdur] 30 mg PO HS 04/03/21 06/11/21 History Acetaminophen Tab [Tylenol] 650 mg PO Q6HR PRN #30 tab 04/09/21 06/11/21 Rx amLODIPine [Norvasc] 10 mg PO DAILY 30 Days #30 tab 04/15/21 06/11/21 Rx cloNIDine HCL [Catapres] 0.3 mg PO TID 30 Days #90 tab 04/15/21 06/11/21 Rx Escitalopram [Lexapro] 20 mg PO DAILY 04/17/21 06/11/21 History Irbesartan [Avapro] 75 mg PO DAILY 04/17/21 06/11/21 History hydrALAZINE HCL [Apresoline] 100 mg PO TID 04/17/21 06/11/21 History rOPINIRole HCL [Requip] 0.5 mg PO HS 04/17/21 06/11/21 History Glucagon Emergency Kit 1 mg IM ONCE PRN 05/29/21 06/11/21 History Insulin Glargine [Lantus Vial] 15 unit SQ DAILY #0 05/31/21 06/11/21 Rx Sevelamer [Renvela] 800 mg PO TID-W/MEALS 30 Days #90 05/31/21 06/11/21 Rx tab Pantoprazole Sodium [Protonix] 40 mg PO BID 30 Days #60 tab 06/04/21 06/11/21 Rx Allergies Allergy/AdvReac Type Severity Reaction Status Date / Time Fish Containing Products Allergy Rash/Hives Verified 06/11/21 15:51 [Fish] iodine Allergy Anaphylaxis Verified 06/11/21 15:51 Physical Exam Vitals: Vital Signs Temp Pulse Resp BP Pulse Ox 06/13/21 08:00 98.3 F 76 16 136/78 98 06/13/21 04:00 70 16 153/73 97 06/13/21 00:00 67 16 126/75 98 06/12/21 21:00 164/78 06/12/21 20:00 97.7 F 72 16 138/75 99 06/12/21 16:51 96.6 F L 68 18 148/88 06/12/21 16:00 98.4 F 68 16 147/88 99 Intake and Output 06/12/21 06/13/21 06/13/21 22:59 06:59 14:59 Intake Total 485 535 120 Output Total 1999 Balance -1515 535 120 Intake: Intake, IV Titration 50 Amount Cefepime 1 gm In Sodium 50 Chloride 0.9% 50 ml @ 12. 5 mls/hr IVPB Q12H [facility] Rx #:[id number] Oral 485 485 120 Output: Hemodialysis 1999 Other: # Voids 0 0 Results CBC & Chem 7: 06/13/21 08:01 06/13/21 08:01 Labs: Abnormal Lab Results - Last 24 Hours (Table) 06/12/21 06/12/21 06/12/21 Range/Units 16:27 16:48 20:42 Sodium (137-145) mmol/L Carbon Dioxide (22-30) mmol/L BUN (7-17) mg/dL Creatinine (0.52-1.04) mg/dL Glucose (74-99) mg/dL POC Glucose (mg/dL) 64 L 108 H 212 H (75-99) mg/dL 06/13/21 06/13/21 06/13/21 Range/Units 06:10 08:01 11:58 Sodium 133 L (137-145) mmol/L Carbon Dioxide 21 L (22-30) mmol/L BUN 35 H (7-17) mg/dL Creatinine 6.07 H (0.52-1.04) mg/dL Glucose 314 H (74-99) mg/dL POC Glucose (mg/dL) 343 H 222 H (75-99) mg/dL Microbiology - Last 24 Hours (Table) 06/11/21 18:40 Blood Culture - Preliminary Blood No Growth after 24 hours
[2021-06-13] MEDS: MELATONIN 5 MG TABLET PO SCH (22:12)
[2021-06-13] MEDS: ISOSORBIDE MONONITRATE ER 30 MG TAB.ER.24H PO SCH (22:12)
[2021-06-14 06:09] LABS: Glucose,Whole Blood 316 mg/dL (75-99)
[2021-06-14] MEDS: CEFEPIME 1 GM in SODIUM CHLORIDE 0.9% 50 ML IVPB SCH ×2 (06:30→17:16)
[2021-06-14] MEDS: SEVELAMER 800 MG TAB PO SCH ×3 (06:30→17:15)
[2021-06-14] MEDS: INSULIN ASPART (NovoLOG) 100 UNIT/ML VIAL SQ SCH ×4 (06:30→20:30)
[2021-06-14] MEDS: INSULIN DETEMIR (LEVEMIR) 100 UNIT/ML SYR SQ SCH (08:55)
[2021-06-14 10:32] LABS: Basophils # (A) 0.1 k/uL (0-0.2); Basophils % (A) 1 %; Eosinophils # (A) 0.2 k/uL (0-0.7); Eosinophils % (A) 3 %; HCT 34.5 % (34.0-46.0); HGB 11.4 gm/dL (11.4-16.0); Lymphocytes # (A) 0.8 k/uL (1.0-4.8); Lymphocytes % (A) 13 %; MCH 30.6 pg (25.0-35.0); MCV 92.6 fL (80.0-100.0); Mean Platelet Volume 9.7; Monocytes # (A) 0.3 k/uL (0-1.0); Monocytes % (A) 5 %; Neutrophils # (A) 4.9 k/uL (1.3-7.7); Neutrophils % (A) 76 %; Platelet Count 196 k/uL (150-450); RBC 3.72 m/uL (3.80-5.40); RDW 14.7 % (11.5-15.5); WBC 6.4 k/uL (3.8-10.6)
[2021-06-14 10:44] LABS: Albumin 3.6 g/dL (3.5-5.0); Calcium 8.6 mg/dL (8.4-10.2); Potassium 5.1 mmol/L (3.5-5.1); Total Bilirubin 0.5 mg/dL (0.2-1.3); Total Protein 6.3 g/dL (6.3-8.2)
--- NOTE | 2021-06-14 11:28 | CDI ---
Documentation Clarification Form Date: 06/15/2021 11:16:42 AM From: Tamica Hale CCS, CCDS Admit Date: 06/11/2021 03:10:00 PM Patient Name: Patsy Pizano Visit Number: [id number] Discharge Date: ATTENTION: The Clinical Documentation Specialists (CDI) and [facility] Coding Staff appreciate your assistance in clarifying documentation. Please respond to the clarification below the line at the bottom and electronically sign. The CDI & [facility] Coding staff will review the response and follow-up if needed. Please note: Queries are made part of the Legal Health Record. If you have any questions, please contact the author of this message via ITS. Dr. Hector Pena: The patient is admitted with documented change in mental status, possibly secondary to Acute Hypoglycemia. Patient is DM Type I with history of DKA. Additional clarification regarding the patient's change in mental status is requested. History/Risk Factors per the 06/11 H/P: DM Type II, CVA, TIA, ESRD on Hemodialysis, Seizure Disorder. Clinical Indicators: Presented to the ED on 06/11 via EMS with Altered mental status. Blood Sugar 36. Admit with Hypoglycemia, Hypothermia, Missed Dialysis, Elevated Troponins. 06/11 VS: T 94.5, P 67, R 18, BP 141/130, PO 99 RA, BMI: 23.7 06/11 LAB: WBC 12.4, Neut 10.4, D dimer 0.87, Na 131, Cl 94, BUN 60, Cr 8.17, Glucose 113, Alk Phos 131, Trop 0.219^^ UA: 4+ prot, 3+ glucose, Tr blood, COVID negative. 06/11 CXR: Bilateral pneumonia, Cardiomegaly. 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 rec MRI. EKG: R 69 nsr Treatment: Seizure precautions, HD, Blood culture, Sputum culture, O2, Insulin sq, po home meds. Please clarify the following: [ ] Altered mental status due to Metabolic Encephalopathy [ ] Altered mental status due to Other Encephalopathy [ ] Altered mental status due to Other Diagnosis, please specify: [ ] Other, please specify: [ ] Unable to determine Altered mental status due to Metabolic Encephalopathy MTDD
--- NOTE | 2021-06-14 11:50 | P.PN ---
Subjective Patient is seen in follow-up for end-stage renal disease. She is maintained on hemodialysis on Monday schedule. Tolerating dialysis well. No vomiting or diarrhea. Current blood pressure in the systolic 140s. Vital signs are stable. General: The patient appeared well nourished and normally developed. HEENT: Head exam is unremarkable. LUNGS: Breath sounds decreased. HEART: Rate and Rhythm are regular. ABDOMEN: Soft, no distention. EXTREMITITES: No edema. Objective - Vital Signs Vital signs: Vital Signs Temp 98.0 F 06/14/21 08:00 Pulse 74 06/14/21 08:00 Resp 18 06/14/21 08:00 BP 166/100 06/14/21 08:00 Pulse Ox 95 06/14/21 08:00 Intake & Output 06/13/21 06/14/21 06/14/21 18:59 06:59 18:59 Intake Total 1150 Balance 1150 Intake: Intake, IV Titration 50 Amount Cefepime 1 gm In Sodium 50 Chloride 0.9% 50 ml @ 12. 5 mls/hr IVPB Q12H [facility] Rx #:[id number] Oral 1100 Other: # Voids 2 - Labs CBC & Chem 7: 06/14/21 10:02 06/14/21 10:02 Labs: Abnormal Lab Results - Last 24 Hours (Table) 06/13/21 06/13/21 06/13/21 Range/Units 11:58 13:57 13:57 RBC (3.80-5.40) m/uL Lymphocytes # (1.0-4.8) k/uL Sodium (137-145) mmol/L BUN (7-17) mg/dL Creatinine (0.52-1.04) mg/dL Glucose (74-99) mg/dL POC Glucose (mg/dL) 222 H (75-99) mg/dL Alkaline Phosphatase (38-126) U/L C-Reactive Protein 1.6 H (<1.0) mg/dL Procalcitonin 1.38 H (0.02-0.09) ng/mL 06/13/21 06/13/21 06/14/21 Range/Units 16:32 20:19 05:46 RBC (3.80-5.40) m/uL Lymphocytes # (1.0-4.8) k/uL Sodium (137-145) mmol/L BUN (7-17) mg/dL Creatinine (0.52-1.04) mg/dL Glucose (74-99) mg/dL POC Glucose (mg/dL) 70 L 130 H 316 H (75-99) mg/dL Alkaline Phosphatase (38-126) U/L C-Reactive Protein (<1.0) mg/dL Procalcitonin (0.02-0.09) ng/mL 06/14/21 06/14/21 Range/Units 10:02 10:02 RBC 3.72 L (3.80-5.40) m/uL Lymphocytes # 0.8 L (1.0-4.8) k/uL Sodium 131 L (137-145) mmol/L BUN 38 H (7-17) mg/dL Creatinine 5.00 H (0.52-1.04) mg/dL Glucose 372 H (74-99) mg/dL POC Glucose (mg/dL) (75-99) mg/dL Alkaline Phosphatase 139 H (38-126) U/L C-Reactive Protein (<1.0) mg/dL Procalcitonin (0.02-0.09) ng/mL Microbiology - Last 24 Hours (Table) 06/11/21 18:40 Blood Culture - Preliminary Blood No Growth after 48 hours Assessment and Plan Plan: Assessment: 1. End-stage renal disease maintained on hemodialysis on Monday schedule. 2. Hypertensive urgency. Improved. 3. Volume overload. Improved with ultrafiltration. 4. Uncontrolled diabetes mellitus. 5. 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 Plan: Currently seen while undergoing hemodialysis. Next treatment on Monday.
[2021-06-14 11:51] LABS: Glucose,Whole Blood 241 mg/dL (75-99)
[2021-06-14] MEDS: cloNIDine HCL 0.1 MG TAB PO SCH ×3 (12:20→20:32)
[2021-06-14] MEDS: LOSARTAN 25 MG TAB PO SCH (12:20)
[2021-06-14] MEDS: carvediloL 12.5 MG TAB PO SCH ×2 (12:20→20:31)
[2021-06-14] MEDS: amLODIPine 10 MG TAB PO SCH (12:20)
[2021-06-14] MEDS: PANTOPRAZOLE 40 MG TABLET PO SCH ×2 (12:21→20:31)
[2021-06-14] MEDS: hydrALAZINE HCL 50 MG TAB PO SCH ×3 (12:21→20:31)
[2021-06-14] MEDS: ASPIRIN 81 MG PO SCH (12:22)
[2021-06-14] MEDS: ESCITALOPRAM 20 MG TAB PO SCH (12:22)
[2021-06-14] MEDS: FUROSEMIDE 40 MG TAB PO SCH ×2 (12:22→17:15)
--- NOTE | 2021-06-14 15:22 | P.PN ---
Subjective Progress Note Date: 06/14/21 I am seeing the patient for the first time for neurological management. Please refer to Dr. Morales's note for further details. Per nurse no further new neurological complaints. Per patient she is doing wel l. No further altered mental status. Patient denies history of seizures. Today she had dialysis. EEG was not done today since was getting dialysis. Objective - Vital Signs Vital signs: Vital Signs Temp 98.0 F 06/14/21 12:39 Pulse 76 06/14/21 12:39 Resp 20 06/14/21 12:39 BP 147/87 06/14/21 12:39 Pulse Ox 95 06/14/21 08:00 Intake & Output 06/13/21 06/14/21 06/14/21 18:59 06:59 18:59 Intake Total 1150 300 Output Total 3100 Balance 1150 -2800 Intake: Intake, IV Titration 50 Amount Cefepime 1 gm In Sodium 50 Chloride 0.9% 50 ml @ 12. 5 mls/hr IVPB Q12H [facility] Rx #:[id number] Oral 1100 Hemodialysis 300 Output: Hemodialysis 3100 Other: # Voids 2 - Exam Gen.: The patient is reclining in the bed. She is in no acute distress. She is slightly sleepy. She is thin. Neurological examination Mental status exam: The patient is awake, alert and oriented 3. Patient is following commands. No aphasia or neglect. Cranial nerves: Pupils are equal at 5 mm and nonreactive. Visual field could not be assessed because of her blindness of both eyes (old). Extraocular movements are intact. There is no nystagmus. Facial sensation is intact. There is no facial asymmetry. Shoulder shrug is symmetric. Tongue protrudes midline. No dysarthria. Motor: Moving all extremities above gravity and no focality noted. Sensation: Grossly intact to light touch throughout. Coordination: Finger to nose testing is intact. WORK-UP: Grant virus PCR was not detected. ESR is 13. CT of the head is reported as dilation of the atria/occipital horns of the lateral ventricles. 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 - Labs CBC & Chem 7: 06/14/21 10:02 06/14/21 10:02 Labs: Abnormal Lab Results - Last 24 Hours (Table) 0106/13/21 06/13/21 Range/Units 13:57 13:57 16:32 RBC (3.80-5.40) m/uL Lymphocytes # (1.0-4.8) k/uL Sodium (137-145) mmol/L BUN (7-17) mg/dL Creatinine (0.52-1.04) mg/dL Glucose (74-99) mg/dL POC Glucose (mg/dL) 70 L (75-99) mg/dL Alkaline Phosphatase (38-126) U/L C-Reactive Protein 1.6 H (<1.0) mg/dL Procalcitonin 1.38 H (0.02-0.09) ng/mL 06/13/21 06/14/21 06/14/21 Range/Units 20:19 05:46 10:02 RBC 3.72 L (3.80-5.40) m/uL Lymphocytes # 0.8 L (1.0-4.8) k/uL Sodium (137-145) mmol/L BUN (7-17) mg/dL Creatinine (0.52-1.04) mg/dL Glucose (74-99) mg/dL POC Glucose (mg/dL) 130 H 316 H (75-99) mg/dL Alkaline Phosphatase (38-126) U/L C-Reactive Protein (<1.0) mg/dL Procalcitonin (0.02-0.09) ng/mL 06/14/21 06/14/21 Range/Units 10:02 11:49 RBC (3.80-5.40) m/uL Lymphocytes # (1.0-4.8) k/uL Sodium 131 L (137-145) mmol/L BUN 38 H (7-17) mg/dL Creatinine 5.00 H (0.52-1.04) mg/dL Glucose 372 H (74-99) mg/dL POC Glucose (mg/dL) 241 H (75-99) mg/dL Alkaline Phosphatase 139 H (38-126) U/L C-Reactive Protein (<1.0) mg/dL Procalcitonin (0.02-0.09) ng/mL Microbiology - Last 24 Hours (Table) 06/11/21 18:40 Blood Culture - Preliminary Blood No Growth after 48 hours Assessment and Plan Assessment: Altered mental status, multifactoria metabolic encephalopathy (hypoglycemia versus hypertension versus hyponatremia versus dehydration versus acute on chronic kidney injury)----mentation improved. Reported history of "seizure disorder" Uncontrolled Diabetes mellitus type I (last HbA1c is 9.4 on 03/2021) Diabetic neuropathy Diabetic retinopathy and is legally blind in both eyes End-stage renal disease on hemodialysis Plan: * Pending EEG to be done. I'll not start the patient on antiepileptic drugs unless there is epileptiform discharges or seizure on the EEG * If EEG is negative I'll order an ambulatory 2.5 hour EEG as an outpatient because of the his diagnosis of seizure as well as abnormal CT head (CT of the head is reported as dilation of the atria/occipital horns of the lateral ventricles. 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 * Q4 hour neuro-checks. * Defer the rest of the medical management to the primary team * Upon discharge recommend the patient to follow up with a neurologist within 1- 2 weeks. The plan is discussed with patient and her nurse. Otherwise no other neurological work-up. Adolfo Rajan M.D. Neuro-Hospitalist Time with Patient: Less than 30
[2021-06-14 16:22] LABS: Glucose,Whole Blood 203 mg/dL (75-99)
--- NOTE | 2021-06-14 19:09 | P.CNPUL ---
History of Present Illness Consult date: 06/14/21 Requesting physician: Hector Pena Reason for consult: pneumonia Chief complaint: Unresponsiveness. History of present illness: This is a 30-year-old female with history of chronic kidney disease, patient is on hemodialysis, history of hypertension, presented to the hospital on 06/11/21, patient was brought in with an episode of altered mental status, and her blood sugar at that time was 36. When EMS arrived, patient was difficult to awaken, and she received 1 amp of D50 soon after the D50, patient became more alert, but was still a bit confused. Patient was sick the night before, she had intermittent episodes of vomiting and she wasn't sleeping well. Initially there was a concern whether the patient may have had a seizure. But patient was seen by neurology, and does not seem to be seizure was even an issue. Patient denies any history of IV drug abuse, she does have a left forearm fistula with dialysis. Patient has been on hemodialysis for over a year. At any rate his chest x-ray was done on this admission, and it showed multiple multifocal infiltrates, CT of the chest showed numerous patchy variable sized somewhat roundedinfiltrates in both lungs. Patient denies again any history of IV drug abuse, her blood cultures have been negative, and her echocardiogram has been unremarkable. Considering the abnormalities, patient was seen by infectious disease initially on consultation, and she is already empirically on antibiotics. Her pro calcitonin level is elevated. However the patient had no pulmonary symptoms whatsoever. No cough no wheezing no shortness of breath no fever no chills no hemoptysis. He is sitting her abnormal CT of the chest and abnormal chest x-ray, this consult was initiated Review of Systems CONSTITUTIONAL: Positive for weakness denies fever. EYES: No complaint. ENT: No complaint. RESPIRATORY: Patient denies any cough wheezing shortness of breath or chest pain. CARDIOVASCULAR: No complaint. GENITOURINARY: No complaint. GASTROINTESTINAL: As per history of present illness. MUSCULOSKELETAL: No complaint. INTEGUMENTARY: No complaint. PSYCHOLOGIC: No complaint. ENDOCRINE: As noted in HPI, patient presented mostly with hypoglycemia NEUROLOGIC: No complaint. Past Medical History Past Medical History: CVA/TIA, Dialysis, Eye Disorder, Hypertension, Renal Disease, Seizure Disorder Additional Past Medical History / Comment(s): ESRD with hemodialysis M/W/F, IDDM type 1, DKA, neuropathy bilateral legs/feet, diabetic retinopathy/legally blind, RLS, recent hospitalizations for gastritis, severe hypokalemia, fluid retention in abdomin/legs. There is no definite diagnosis of seizure disorder History of Any Multi-Drug Resistant Organisms: None Reported Past Surgical History: Appendectomy, Section, Cholecystectomy Additional Past Surgical History / Comment(s): fistula left arm Past Anesthesia/Blood Transfusion Reactions: No Reported Reaction Past Psychological History: No Psychological Hx Reported Additional Psychological History / Comment(s): Pt resides with her father and pt's 2 children. Pt gets to dialysis by grandparents/family or cab. Smoking Status: Never smoker Past Alcohol Use History: None Reported Past Drug Use History: None Reported - Past Family History Mother Family Medical History: Cancer, Hypertension Additional Family Medical History / Comment(s): Thyroid cancer, bipolar Father Family Medical History: Seizure Disorder Additional Family Medical History / Comment(s): Epilepsy Medications and Allergies Home Medications Medication Instructions Recorded Confirmed Type Aspirin EC [Ecotrin Low Dose] 81 mg PO DAILY 04/03/21 06/11/21 History Carvedilol [Coreg] 25 mg PO BID 04/03/21 06/11/21 History Ergocalciferol (Vitamin D2) 1,250 mcg PO COPELAND 04/03/21 06/11/21 History [Drisdol (50,000 Iu)] Furosemide [Lasix] 40 mg PO BID 04/03/21 06/11/21 History INSULIN LISPRO (HumaLOG) [humaLOG] See Protocol SQ AC-TID 04/03/21 06/11/21 History Isosorbide Mononitrate ER [Imdur] 30 mg PO HS 04/03/21 06/11/21 History Acetaminophen Tab [Tylenol] 650 mg PO Q6HR PRN #30 tab 04/09/21 06/11/21 Rx amLODIPine [Norvasc] 10 mg PO DAILY 30 Days #30 tab 04/15/21 06/11/21 Rx cloNIDine HCL [Catapres] 0.3 mg PO TID 30 Days #90 tab 04/15/21 06/11/21 Rx Escitalopram [Lexapro] 20 mg PO DAILY 04/17/21 06/11/21 History Irbesartan [Avapro] 75 mg PO DAILY 04/17/21 06/11/21 History hydrALAZINE HCL [Apresoline] 100 mg PO TID 04/17/21 06/11/21 History rOPINIRole HCL [Requip] 0.5 mg PO HS 04/17/21 06/11/21 History Glucagon Emergency Kit 1 mg IM ONCE PRN 05/29/21 06/11/21 History Insulin Glargine [Lantus Vial] 15 unit SQ DAILY #0 05/31/21 06/11/21 Rx Sevelamer [Renvela] 800 mg PO TID-W/MEALS 30 Days #90 05/31/21 06/11/21 Rx tab Pantoprazole Sodium [Protonix] 40 mg PO BID 30 Days #60 tab 06/04/21 06/11/21 Rx Allergies Allergy/AdvReac Type Severity Reaction Status Date / Time Fish Containing Products Allergy Rash/Hives Verified 06/11/21 15:51 [Fish] iodine Allergy Anaphylaxis Verified 06/11/21 15:51 Physical Exam Vitals: Vital Signs Temp Pulse Resp BP Pulse Ox 06/14/21 16:00 90 16 179/90 98 06/14/21 13:38 76 06/14/21 12:39 98.0 F 76 20 147/87 06/14/21 08:00 98.0 F 74 18 166/100 95 06/14/21 03:53 98.0 F 74 16 144/75 95 06/13/21 23:36 98.0 F 72 16 165/81 97 06/13/21 19:27 75 16 174/89 96 Intake and Output 06/14/21 06/14/21 06/14/21 06:59 14:59 22:59 Intake Total 300 240 Output Total 3100 Balance -2800 240 Intake: Oral 240 Hemodialysis 300 Output: Hemodialysis 3100 Other: # Voids 2 0 Physical Exam: Revealed a 50-year-old female in no distress. Head: Atraumatic, normocephalic. HEENT:[Neck is supple.] [No neck masses.] [No thyromegaly.] [No JVD.] Chest: [Clear throughout, no crackles, no rhonchi, no wheezes.] Cardiac Exam: [Normal S1 and S2, no S3 gallop, no murmur.] Abdomen: [Soft, nontender, no megaly, no rebound, no guarding, normal bowel sounds.] Extremities: [No clubbing, no edema, no cyanosis.] Left forearm AV fistula is noted. Neurological Exam: [No focal neurologic deficit.] Alert oriented 3. Psychiatric: Normal mood affect and normal mental status examination. Skin: No rashes. Results - Laboratory Findings CBC and BMP: 06/14/21 10:02 06/14/21 10:02 ABG ABG pH 7.44 (7.35-7.45) 06/12/21 00:05 ABG pCO2 45 mmHg (35-45) 06/12/21 00:05 ABG pO2 78 mmHg (83-108) L 06/12/21 00:05 ABG O2 Saturation 94.9 % (94-97) 06/12/21 00:05 PT/INR, D-dimer PT 10.3 sec (9.0-12.0) 06/11/21 13:04 INR 1.0 (<1.2) 06/11/21 13:04 D-Dimer 0.87 mg/L FEU (<0.60) H 06/11/21 18:40 Abnormal lab findings: Abnormal Labs 06/11/21 06/11/21 06/11/21 12:34 13:04 13:04 WBC 12.4 H RBC RDW 16.1 H Neutrophils # 10.4 H Lymphocytes # D-Dimer ABG pO2 ABG HCO3 ABG Total CO2 Sodium Chloride Carbon Dioxide BUN Creatinine Glucose POC Glucose (mg/dL) 158 H Alkaline Phosphatase Troponin I C-Reactive Protein Procalcitonin Urine Protein 4+ H Urine Glucose (UA) 3+ H Urine Blood Trace H Ur Squamous Epith Cells 7 H Urine Bacteria Rare H 06/11/21 06/11/21 06/11/21 14:00 14:00 14:22 WBC RBC RDW Neutrophils # Lymphocytes # D-Dimer ABG pO2 ABG HCO3 ABG Total CO2 Sodium 131 L Chloride 94 L Carbon Dioxide BUN 60 H Creatinine 8.17 H* Glucose 113 H POC Glucose (mg/dL) 102 H Alkaline Phosphatase 131 H Troponin I 0.219 H* C-Reactive Protein Procalcitonin Urine Protein Urine Glucose (UA) Urine Blood Ur Squamous Epith Cells Urine Bacteria 06/11/21 06/11/21 06/11/21 18:40 20:53 21:17 WBC RBC RDW Neutrophils # Lymphocytes # D-Dimer 0.87 H ABG pO2 ABG HCO3 ABG Total CO2 Sodium Chloride Carbon Dioxide BUN Creatinine Glucose POC Glucose (mg/dL) 133 H 141 H Alkaline Phosphatase Troponin I C-Reactive Protein Procalcitonin Urine Protein Urine Glucose (UA) Urine Blood Ur Squamous Epith Cells Urine Bacteria 06/11/21 06/12/21 06/12/21 22:37 00:05 03:14 WBC RBC RDW Neutrophils # Lymphocytes # D-Dimer ABG pO2 78 L ABG HCO3 30 H ABG Total CO2 31 H Sodium Chloride Carbon Dioxide BUN Creatinine Glucose POC Glucose (mg/dL) 202 H Alkaline Phosphatase Troponin I 0.171 H* C-Reactive Protein Procalcitonin Urine Protein Urine Glucose (UA) Urine Blood Ur Squamous Epith Cells Urine Bacteria 06/12/21 06/12/21 06/12/21 03:14 03:14 05:58 WBC RBC RDW 15.8 H Neutrophils # Lymphocytes # D-Dimer ABG pO2 ABG HCO3 ABG Total CO2 Sodium 129 L Chloride 93 L Carbon Dioxide BUN 33 H Creatinine 5.92 H Glucose 281 H POC Glucose (mg/dL) 381 H Alkaline Phosphatase Troponin I C-Reactive Protein Procalcitonin Urine Protein Urine Glucose (UA) Urine Blood Ur Squamous Epith Cells Urine Bacteria 06/12/21 06/12/21 06/12/21 11:49 16:27 16:48 WBC RBC RDW Neutrophils # Lymphocytes # D-Dimer ABG pO2 ABG HCO3 ABG Total CO2 Sodium Chloride Carbon Dioxide BUN Creatinine Glucose POC Glucose (mg/dL) 191 H 64 L 108 H Alkaline Phosphatase Troponin I C-Reactive Protein Procalcitonin Urine Protein Urine Glucose (UA) Urine Blood Ur Squamous Epith Cells Urine Bacteria 06/12/21 06/13/21 06/13/21 20:42 06:10 08:01 WBC RBC RDW Neutrophils # Lymphocytes # D-Dimer ABG pO2 ABG HCO3 ABG Total CO2 Sodium 133 L Chloride Carbon Dioxide 21 L BUN 35 H Creatinine 6.07 H Glucose 314 H POC Glucose (mg/dL) 212 H 343 H Alkaline Phosphatase Troponin I C-Reactive Protein Procalcitonin Urine Protein Urine Glucose (UA) Urine Blood Ur Squamous Epith Cells Urine Bacteria 06/13/21 06/13/21 06/13/21 11:58 13:57 13:57 WBC RBC RDW Neutrophils # Lymphocytes # D-Dimer ABG pO2 ABG HCO3 ABG Total CO2 Sodium Chloride Carbon Dioxide BUN Creatinine Glucose POC Glucose (mg/dL) 222 H Alkaline Phosphatase Troponin I C-Reactive Protein 1.6 H Procalcitonin 1.38 H Urine Protein Urine Glucose (UA) Urine Blood Ur Squamous Epith Cells Urine Bacteria 06/13/21 06/13/21 06/14/21 16:32 20:19 05:46 WBC RBC RDW Neutrophils # Lymphocytes # D-Dimer ABG pO2 ABG HCO3 ABG Total CO2 Sodium Chloride Carbon Dioxide BUN Creatinine Glucose POC Glucose (mg/dL) 70 L 130 H 316 H Alkaline Phosphatase Troponin I C-Reactive Protein Procalcitonin Urine Protein Urine Glucose (UA) Urine Blood Ur Squamous Epith Cells Urine Bacteria 06/14/21 06/14/21 06/14/21 10:02 10:02 11:49 WBC RBC 3.72 L RDW Neutrophils # Lymphocytes # 0.8 L D-Dimer ABG pO2 ABG HCO3 ABG Total CO2 Sodium 131 L Chloride Carbon Dioxide BUN 38 H Creatinine 5.00 H Glucose 372 H POC Glucose (mg/dL) 241 H Alkaline Phosphatase 139 H Troponin I C-Reactive Protein Procalcitonin Urine Protein Urine Glucose (UA) Urine Blood Ur Squamous Epith Cells Urine Bacteria 06/14/21 16:20 WBC RBC RDW Neutrophils # Lymphocytes # D-Dimer ABG pO2 ABG HCO3 ABG Total CO2 Sodium Chloride Carbon Dioxide BUN Creatinine Glucose POC Glucose (mg/dL) 203 H Alkaline Phosphatase Troponin I C-Reactive Protein Procalcitonin Urine Protein Urine Glucose (UA) Urine Blood Ur Squamous Epith Cells Urine Bacteria - Diagnostic Findings CT scan - chest: image reviewed (As noted in HPI.) Assessment and Plan Assessment: Impression: Acute mental status changes secondary to hypoglycemia Bilateral pneumonic infiltrates, highly suggestive of septic emboli, although the clinical history does not point to septic emboli, patient had negative blood cultures, and she had no history of IV drug abuse, she also had a relatively normal echocardiogram. History of end-stage renal disease on hemodialysis. History of diabetic retinopathy. Patient is legally blind. History of seizure disorder. Benign essential hypertension. Elevated pro calcitonin level of 1.38. Recommendation: Continue antibiotics. Repeat the blood cultures. Repeat chest x-ray in the next 24-48 hours. Patient has no active pulmonary symptoms at present, hence I see no value of bronchoscopy at this point. We will continue to monitor. Time with Patient: Greater than 30
[2021-06-14 19:54] LABS: Glucose,Whole Blood 159 mg/dL (75-99)
[2021-06-14] MEDS: MELATONIN 5 MG TABLET PO SCH (20:31)
[2021-06-14] MEDS: ISOSORBIDE MONONITRATE ER 30 MG TAB.ER.24H PO SCH (20:32)
--- NOTE | 2021-06-15 00:42 | P.PN ---
Subjective Progress Note Date: 06/14/21 This is a 30-year-old female who was recently admitted with change in mental status, hyperlipidemia, bilateral multifocal pneumonia and is being closely monitored. Patient has ESRD and maintained on Mon/Mon/Mon hemodialysis schedule. Patient is currently receiving dialysis today and is lethargic although arousable. Patient denies any shortness of breath and patient is afebrile. Pulmonary consulted along with infectious disease. Nephrology and neurology following. EEG ordered. Labs: WBC is 6.4, hemoglobin is 11.4, platelets are 196, sodium is 131, potassium 5.1, BUN is 38, creatinine 5.0, calcium 8.6 Review of systems: Constitutional: reports of fatigue, no reports of fever, or chills Cardiovascular: No reports of chest pain or palpitations Respiratory: No reports of shortness of breath or cough GI: No reports of nausea, vomiting, or diarrhea : No reports of dysuria or retention Neurovascular: No reports of weakness or numbness All medications have been reviewed Active Medications Acetaminophen (Acetaminophen Tab 325 Mg Tab) 650 mg PO Q6HR PRN PRN Reason: Fever and/ or Pain Amlodipine Besylate (Amlodipine 10 Mg Tab) 10 mg PO DAILY [facility] Last Admin: 06/14/21 12:20 Dose: 10 mg Documented by: Aspirin (Aspirin 81 Mg) 81 mg PO DAILY [facility] Last Admin: 06/14/21 12:22 Dose: 81 mg Documented by: Carvedilol (Carvedilol 12.5 Mg Tab) 25 mg PO BID [facility] Last Admin: 06/14/21 12:20 Dose: 25 mg Documented by: Clonidine (Clonidine Hcl 0.1 Mg Tab) 0.3 mg PO TID [facility] Last Admin: 06/14/21 12:20 Dose: 0.3 mg Documented by: Ergocalciferol (Ergocalciferol 1,250 Mcg (50,000 Iu) Capsule) 1,250 mcg PO COPELAND [facility] Last Admin: 06/13/21 08:51 Dose: 1,250 mcg Documented by: Escitalopram Oxalate (Escitalopram 20 Mg Tab) 20 mg PO DAILY [facility] Last Admin: 06/14/21 12:22 Dose: 20 mg Documented by: Furosemide (Furosemide 40 Mg Tab) 40 mg PO BID@0900,1600 [facility] Last Admin: 06/14/21 12:22 Dose: 40 mg Documented by: Hydralazine HCl (Hydralazine Hcl 50 Mg Tab) 100 mg PO TID [facility] Last Admin: 06/14/21 12:21 Dose: 100 mg Documented by: Cefepime HCl 1 gm/ Sodium (Chloride) 50 mls @ 12.5 mls/hr IVPB Q12H [facility] Last Admin: 06/14/21 06:30 Dose: 12.5 mls/hr Documented by: Insulin Aspart (Insulin Aspart (Novolog) 100 Unit/Ml Vial) 0 unit SQ ACHS [facility]; Protocol Last Admin: 06/14/21 12:25 Dose: 3 unit Documented by: Insulin Detemir (Insulin Detemir (Levemir) 100 Unit/Ml Syr) 15 unit SQ DAILY [facility] Last Admin: 06/14/21 08:55 Dose: 15 unit Documented by: Isosorbide Mononitrate (Isosorbide Mononitrate Er 30 Mg Tab.Er.24h) 30 mg PO [facility] Last Admin: 06/13/21 22:12 Dose: 30 mg Documented by: Losartan Potassium (Losartan 25 Mg Tab) 25 mg PO DAILY [facility] Last Admin: 06/14/21 12:20 Dose: 25 mg Documented by: Melatonin (Melatonin 5 Mg Tablet) 5 mg PO [facility] Last Admin: 06/13/21 22:12 Dose: 5 mg Documented by: Ondansetron HCl (Ondansetron 4 Mg/2 Ml Vial) 4 mg IVP Q6HR PRN PRN Reason: Nausea And Vomiting Last Admin: 06/12/21 06:34 Dose: 4 mg Documented by: Pantoprazole Sodium (Pantoprazole 40 Mg Tablet) 40 mg PO BID [facility] Last Admin: 06/14/21 12:21 Dose: 40 mg Documented by: Ropinirole HCl (Ropinirole Hcl 0.25 Mg Tab) 0.5 mg PO [facility] Last Admin: 06/13/21 22:13 Dose: 0.5 mg Documented by: Sevelamer Carbonate (Sevelamer 800 Mg Tab) 800 mg PO TID-W/MEALS [facility] Last Admin: 06/14/21 12:20 Dose: 800 mg Documented by: Physical Exam: Gen: This a 30-year-old female asleep but arousable, alert and oriented 3. Temp is 98.0F, pulse is 76, respirations are 20, arterial blood pressure is 147/87, oxygen saturation is 98% room air HEENT: Head is atraumatic, normocephalic. Pupils equal, round. Sclerae is ani cteric. NECK: Supple. No JVD. No lymphadenopathy. No thyromegaly. LUNGS: Diminished breath sounds bilaterally with some scattered rhonchi noted. No intercostal retractions. HEART: S1, S2 are muffled ABDOMEN: Soft. Bowel sounds are present. No masses. No tenderness. EXTREMITIES: No pedal edema. No calf tenderness. NEUROLOGICAL: Patient is sleepy but arousable alert and oriented 3, diffusely weak Assessment: Change in Mental status due to metabolic encephalopathy, multifactorial Acute bilateral multifocal pneumonia, possibly gram-negative sepsis and cavitating pneumonia to be ruled out Increased white blood count End-stage renal disease Hyponatremia Troponin 0.219, ruled out acute coronary event or acute myocardial infarction History of recent vomiting rule out seizure disorder Accelerated hypertension and hypertensive urgency History of noncompliance History of CVA, TIA history of hypertension history of seizure disorder History of renal disease diabetes mellitus type 2 Peripheral neuropathy History of legal blindness history of restless leg syndrome History of gastritis recently history of multiple electrolyte abnormalities History of section Full code Plan: Recommend to continue with current medications and follow along closely with multiple medical consultations. Prognosis remains guarded with multiple complex medical issues noted. Patient evaluated by pulmonary and recommend to continue with current medications and IV antibiotics with ID also following. Patient remains afebrile and WBC is within normal limits and possible cavitating lesion excluded. Awaiting EEG and no seizure like activity noted. Patient will need outpatient neuorology follow up. Recommend to continue with accuchecks achs and continue current insulin regimen. Recommend patient to continue Recommend repeat labs in the morning. Again due to multiple complex medical issues prognosis is guarded. Possible discharge in 24-48 hours. Objective - Vital Signs Vital signs: Vital Signs Temp 98.0 F 06/14/21 08:00 Pulse 74 06/14/21 08:00 Resp 18 06/14/21 08:00 BP 166/100 06/14/21 08:00 Pulse Ox 95 06/14/21 08:00 Intake & Output 06/13/21 06/14/21 06/14/21 18:59 06:59 18:59 Intake Total 1150 Balance 1150 Intake: Intake, IV Titration 50 Amount Cefepime 1 gm In Sodium 50 Chloride 0.9% 50 ml @ 12. 5 mls/hr IVPB Q12H [facility] Rx #:[id number] Oral 1100 Other: # Voids 2 - Labs CBC & Chem 7: 06/14/21 10:02 06/14/21 10:02 Labs: Abnormal Lab Results - Last 24 Hours (Table) 06/13/21 06/13/21 06/13/21 Range/Units 13:57 13:57 16:32 RBC (3.80-5.40) m/uL Lymphocytes # (1.0-4.8) k/uL Sodium (137-145) mmol/L BUN (7-17) mg/dL Creatinine (0.52-1.04) mg/dL Glucose (74-99) mg/dL POC Glucose (mg/dL) 70 L (75-99) mg/dL Alkaline Phosphatase (38-126) U/L C-Reactive Protein 1.6 H (<1.0) mg/dL Procalcitonin 1.38 H (0.02-0.09) ng/mL 06/13/21 06/14/21 06/14/21 Range/Units 20:19 05:46 10:02 RBC 3.72 L (3.80-5.40) m/uL Lymphocytes # 0.8 L (1.0-4.8) k/uL Sodium (137-145) mmol/L BUN (7-17) mg/dL Creatinine (0.52-1.04) mg/dL Glucose (74-99) mg/dL POC Glucose (mg/dL) 130 H 316 H (75-99) mg/dL Alkaline Phosphatase (38-126) U/L C-Reactive Protein (<1.0) mg/dL Procalcitonin (0.02-0.09) ng/mL 06/14/21 06/14/21 Range/Units 10:02 11:49 RBC (3.80-5.40) m/uL Lymphocytes # (1.0-4.8) k/uL Sodium 131 L (137-145) mmol/L BUN 38 H (7-17) mg/dL Creatinine 5.00 H (0.52-1.04) mg/dL Glucose 372 H (74-99) mg/dL POC Glucose (mg/dL) 241 H (75-99) mg/dL Alkaline Phosphatase 139 H (38-126) U/L C-Reactive Protein (<1.0) mg/dL Procalcitonin (0.02-0.09) ng/mL Microbiology - Last 24 Hours (Table) 06/11/21 18:40 Blood Culture - Preliminary Blood No Growth after 48 hours
[2021-06-15 06:09] LABS: Glucose,Whole Blood 436 mg/dL (75-99)
[2021-06-15] MEDS: SEVELAMER 800 MG TAB PO SCH ×2 (06:20→12:17)
[2021-06-15] MEDS: CEFEPIME 1 GM in SODIUM CHLORIDE 0.9% 50 ML IVPB SCH (06:20)
[2021-06-15] MEDS: INSULIN ASPART (NovoLOG) 100 UNIT/ML VIAL SQ SCH ×2 (06:20→12:17)
[2021-06-15] MEDS: INSULIN DETEMIR (LEVEMIR) 100 UNIT/ML SYR SQ SCH (10:03)
[2021-06-15] MEDS: ASPIRIN 81 MG PO SCH (10:04)
[2021-06-15] MEDS: FUROSEMIDE 40 MG TAB PO SCH (10:04)
[2021-06-15] MEDS: cloNIDine HCL 0.1 MG TAB PO SCH (10:04)
[2021-06-15] MEDS: ESCITALOPRAM 20 MG TAB PO SCH (10:04)
[2021-06-15] MEDS: amLODIPine 10 MG TAB PO SCH (10:04)
[2021-06-15] MEDS: carvediloL 12.5 MG TAB PO SCH (10:04)
[2021-06-15] MEDS: hydrALAZINE HCL 50 MG TAB PO SCH (10:05)
[2021-06-15] MEDS: LOSARTAN 25 MG TAB PO SCH (10:05)
[2021-06-15] MEDS: PANTOPRAZOLE 40 MG TABLET PO SCH (10:05)
--- NOTE | 2021-06-15 10:22 | XR ---
EXAMINATION TYPE: XR chest 1V portable DATE OF EXAM: 06/15/2021 COMPARISON: 06/11/2021 HISTORY: Follow-up TECHNIQUE: Single frontal view of the chest is obtained. FINDINGS: There is no focal air space opacity, pleural effusion, or pneumothorax seen. The cardiac silhouette size is within normal limits. The osseous structures are intact. Mild cardiomegaly. Calc ifications are seen in the axilla. IMPRESSION: No acute process. Interval resolution of bilateral infiltrates.
[2021-06-15 10:24] VITALS: RESP 17
[2021-06-15 11:32] LABS: Glucose,Whole Blood 318 mg/dL (75-99)
[2021-06-15] MEDS ORDERED: hydrALAZINE HCL 20 MG/ML 1 ML VIAL IVP PRN (12:21)
--- NOTE | 2021-06-15 12:24 | P.PN ---
Subjective Patient is seen in follow-up for end-stage renal disease. She is maintained on hemodialysis on Monday schedule. Tolerated 3 L ultrafiltration yesterday. No vomiting or diarrhea. No active complaints. Vital signs are stable. General: The patient appeared well nourished and normally developed. HEENT: Head exam is unremarkable. LUNGS: Breath sounds decreased. HEART: Rate and Rhythm are regular. ABDOMEN: Soft, no distention. EXTREMITITES: No edema. Objective - Vital Signs Vital signs: Vital Signs Temp 97.7 F 06/15/21 08:00 Pulse 74 06/15/21 08:00 Resp 17 06/15/21 08:00 BP 169/93 06/15/21 08:00 Pulse Ox 98 06/15/21 08:00 Intake & Output 06/14/21 06/15/21 06/15/21 18:59 06:59 18:59 Intake Total 540 240 Output Total 3100 Balance -2560 240 Weight 50.8 kg Intake: Oral 240 240 Hemodialysis 300 Output: Hemodialysis 3100 Other: # Voids 0 1 # Bowel Movements 1 - Labs CBC & Chem 7: 06/14/21 10:02 06/14/21 10:02 Labs: Abnormal Lab Results - Last 24 Hours (Table) 06/14/21 06/14/21 06/15/21 Range/Units 16:20 19:52 06:07 POC Glucose (mg/dL) 203 H 159 H 436 H (75-99) mg/dL 06/15/21 Range/Units 11:30 POC Glucose (mg/dL) 318 H (75-99) mg/dL Microbiology - Last 24 Hours (Table) 06/11/21 18:40 Blood Culture - Preliminary Blood No Growth after 72 hours 06/13/21 13:57 Blood Culture - Preliminary Blood No Growth after 24 hours Assessment and Plan Plan: Assessment: 1. End-stage renal disease maintained on hemodialysis on Monday schedule. 2. Hypertensive urgency. Improved. Monique volume sensitive. 3. Volume overload. Improved with ultrafiltration. 4. Uncontrolled diabetes mellitus. 5. 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 6. Hyponatremia secondary to chronic kidney disease and hyperglycemia. Plan: Hemodialysis tomorrow. Blood sugar control. Maintain current antihypertensives.
--- NOTE | 2021-06-15 12:30 | EEG ---
ELECTROENCEPHALOGRAM REPORT DATE OF SERVICE: 06/15/2021. CLINICAL HISTORY: This is a 30-year-old woman who had a transient episode of altered mental status. The video routine EEG is obtained to evaluate for seizure epileptiform activity. EEG TYPE: A routine 21-channel EEG is performed with video using the 10/20 electrode system. RELEVANT MEDICATION: The patient is not on any antiepileptic drugs. DESCRIPTION: Awake state is only obtained. During awake state, the posterior-dominant rhythm consists of low to moderate voltage that is well modulated and well sustained of 7.5 to 8 hertz activity. There is no physiological stage II sleep activity. There is no focal slowing. Interictal and ictal is none. ACTIVATION PROCEDURE: Photic stimulation did not evoke a posterior driving response. There is no abnormality during the photic stimulation. Hyperventilation is not performed. CLINICAL INTERPRETATION: This is an abnormal routine EEG. The background slowing is suggestive of mild encephalopathy likely due to metabolic abnormality. There is no focal slowing, epileptiform discharges or seizure on the EEG. Clinical correlation is recommended. MMFLORIDALMA / CANDYN: [id number] / DENISE
--- NOTE | 2021-06-15 12:51 | P.PN ---
Subjective Progress Note Date: 06/14/21 Principal diagnosis: Abdominal CT question of pneumonia Patient is a 30 female admitted to hospital with episode of unresponsiveness and low blood sugar did have abnormal CT of the chest with evidence of multifocal pneumonia and his question of possible septic emboli in this patient did not have any fever during this admission mildly elevated white count was subsequently has resolved and blood culture had been negative echocardiogram didn't show any vegetation. On today's evaluation that is 06/14/2021, the patient denies having any fever or any chills, the patient is feeling better she is breathing comfortably on room air no chest pain shortness of breath or cough no nausea no vomiting abdominal pain or diarrhea Objective - Vital Signs Vital signs: Vital Signs Temp 98.0 F 06/14/21 12:39 Pulse 76 06/14/21 13:38 Resp 20 06/14/21 12:39 BP 147/87 06/14/21 12:39 Pulse Ox 95 06/14/21 08:00 Intake & Output 06/13/21 06/14/21 06/14/21 18:59 06:59 18:59 Intake Total 1150 300 Output Total 3100 Balance 1150 -2800 Intake: Intake, IV Titration 50 Amount Cefepime 1 gm In Sodium 50 Chloride 0.9% 50 ml @ 12. 5 mls/hr IVPB Q12H [facility] Rx #:[id number] Oral 1100 Hemodialysis 300 Output: Hemodialysis 3100 Other: # Voids 2 - Exam General description is a middle-aged female lying in bed in no distress. Respiratory system: Unlabored breathing, clear to auscultation anteriorly. Heart S1, S2. Regular rate and rhythm. Abdomen soft, no tenderness. Extremities no edema feet - Labs CBC & Chem 7: 06/14/21 10:02 06/14/21 10:02 Labs: Abnormal Lab Results - Last 24 Hours (Table) 06/13/21 06/13/21 06/13/21 Range/Units 13:57 13:57 16:32 RBC (3.80-5.40) m/uL Lymphocytes # (1.0-4.8) k/uL Sodium (137-145) mmol/L BUN (7-17) mg/dL Creatinine (0.52-1.04) mg/dL Glucose (74-99) mg/dL POC Glucose (mg/dL) 70 L (75-99) mg/dL Alkaline Phosphatase (38-126) U/L C-Reactive Protein 1.6 H (<1.0) mg/dL Procalcitonin 1.38 H (0.02-0.09) ng/mL 06/13/21 06/14/21 06/14/21 Range/Units 20:19 05:46 10:02 RBC 3.72 L (3.80-5.40) m/uL Lymphocytes # 0.8 L (1.0-4.8) k/uL Sodium (137-145) mmol/L BUN (7-17) mg/dL Creatinine (0.52-1.04) mg/dL Glucose (74-99) mg/dL POC Glucose (mg/dL) 130 H 316 H (75-99) mg/dL Alkaline Phosphatase (38-126) U/L C-Reactive Protein (<1.0) mg/dL Procalcitonin (0.02-0.09) ng/mL 06/14/21 06/14/21 Range/Units 10:02 11:49 RBC (3.80-5.40) m/uL Lymphocytes # (1.0-4.8) k/uL Sodium 131 L (137-145) mmol/L BUN 38 H (7-17) mg/dL Creatinine 5.00 H (0.52-1.04) mg/dL Glucose 372 H (74-99) mg/dL POC Glucose (mg/dL) 241 H (75-99) mg/dL Alkaline Phosphatase 139 H (38-126) U/L C-Reactive Protein (<1.0) mg/dL Procalcitonin (0.02-0.09) ng/mL Microbiology - Last 24 Hours (Table) 06/11/21 18:40 Blood Culture - Preliminary Blood No Growth after 48 hours Assessment and Plan Assessment: Patient is in the hospital episode of unresponsiveness with abnormal CT with multifocal infiltrate however the patient did not have a history of IV drug use patient blood culture negative echocardiogram was negative clinically not behaving as a septic emboli she seemed to have improved with cefepime may consider short course of oral Ceftin on discharge. Time with Patient: Less than 30
--- NOTE | 2021-06-15 12:52 | P.PN ---
Subjective Progress Note Date: 06/15/21 Principal diagnosis: Abdominal CT question of pneumonia Patient is a 30 female admitted to hospital with episode of unresponsiveness and low blood sugar did have abnormal CT of the chest with evidence of multifocal pneumonia and his question of possible septic emboli in this patient did not have any fever during this admission mildly elevated white count was subsequently has resolved and blood culture had been negative echocardiogram didn't show any vegetation. On today's evaluation that is 06/15/2021, the patient remains to be afebrile, the patient is breathing comfortably on room air , the patient denies chest pain shortness of breath or cough no nausea no vomiting abdominal pain or diarrhea Objective - Vital Signs Vital signs: Vital Signs Temp 97.7 F 06/15/21 08:00 Pulse 74 06/15/21 08:00 Resp 17 06/15/21 08:00 BP 169/93 06/15/21 08:00 Pulse Ox 98 06/15/21 08:00 Intake & Output 06/14/21 06/15/21 06/15/21 18:59 06:59 18:59 Intake Total 540 240 Output Total 3100 Balance -2560 240 Weight 50.8 kg Intake: Oral 240 240 Hemodialysis 300 Output: Hemodialysis 3100 Other: # Voids 0 1 # Bowel Movements 1 - Exam General description is a middle-aged female lying in bed in no distress. Respiratory system: Unlabored breathing, clear to auscultation anteriorly. Heart S1, S2. Regular rate and rhythm. Abdomen soft, no tenderness. Extremities no edema feet - Labs CBC & Chem 7: 06/14/21 10:02 06/14/21 10:02 Labs: Abnormal Lab Results - Last 24 Hours (Table) 06/14/21 06/14/21 06/15/21 Range/Units 16:20 19:52 06:07 POC Glucose (mg/dL) 203 H 159 H 436 H (75-99) mg/dL 06/15/21 Range/Units 11:30 POC Glucose (mg/dL) 318 H (75-99) mg/dL Microbiology - Last 24 Hours (Table) 06/11/21 18:40 Blood Culture - Preliminary Blood No Growth after 72 hours 06/13/21 13:57 Blood Culture - Preliminary Blood No Growth after 24 hours Assessment and Plan Assessment: Patient is in the hospital episode of unresponsiveness with abnormal CT with multifocal infiltrate however the patient did not have a history of IV drug use patient blood culture negative echocardiogram was negative clinically not behaving as a septic emboli she seemed to have improved with cefepime may consider short course of oral Ceftin 7 days on discharge. Patient benefit from repeat CT of the chest in 4 weeks to make sure resolution of the abnormality if not she'll need further workup including a bronchoscopy
[2021-06-15 12:56] VITALS: BP 139/77; PULSE 67; TEMP 97.9
[2021-06-15 13:23] LABS: C-ANCA <1:20 Titer (<1:20)
--- NOTE | 2021-06-15 13:39 | P.PN ---
Subjective Progress Note Date: 06/15/21 Principal diagnosis: Suspected septic emboli This is a 30-year-old female with history of chronic kidney disease, patient is on hemodialysis, history of hypertension, presented to the hospital on 06/11/21, patient was brought in with an episode of altered mental status, and her blood sugar at that time was 36. When EMS arrived, patient was difficult to awaken, and she received 1 amp of D50 soon after the D50, patient became more alert, but was still a bit confused. Patient was sick the night before, she had intermittent episodes of vomiting and she wasn't sleeping well. Initially there was a concern whether the patient may have had a seizure. But patient was seen by neurology, and does not seem to be seizure was even an issue. Patient denies any history of IV drug abuse, she does have a left forearm fistula with dialysis. Patient has been on hemodialysis for over a year. At any rate his chest x-ray was done on this admission, and it showed multiple multifocal infiltrates, CT of the chest showed numerous patchy variable sized somewhat roundedinfiltrates in both lungs. Patient denies again any history of IV drug abuse, her blood cultures have been negative, and her echocardiogram has been unremarkable. Considering the abnormalities, patient was seen by infectious disease initially on consultation, and she is already empirically on antibiotics. Her pro calcitonin level is elevated. However the patient had no pulmonary symptoms whatsoever. No cough no wheezing no shortness of breath no fever no chills no hemoptysis. He is sitting her abnormal CT of the chest and abnormal chest x-ray, this consult was initiated On 06/15/2021 patient seen in follow-up selective care unit, she is breathing comfortably, she is on room air, her pulse ox is 99%. patient continues to be breathing comfortably, no pulmonary complaints, no cough, no wheezing, no phlegm production, follow-up chest x-ray today is pending, she remains on empiric antibiotics in the form of cefepime. blood cultures have been negative. yesterday's labs have been noted, today's labs are pending. Patient tested negative for COVID-19, her LAN screen, c-ANCA and p.m., have been negative. echocardiogram showed no evidence of vegetation. ID service is following. Patient is basically asymptomatic, no cough, no diarrhea Objective - Vital Signs Vital signs: Vital Signs Temp 97.9 F 06/15/21 11:50 Pulse 67 06/15/21 11:50 Resp 17 06/15/21 11:50 BP 139/77 06/15/21 11:50 Pulse Ox 99 06/15/21 11:50 Intake & Output 06/14/21 06/15/21 06/15/21 18:59 06:59 18:59 Intake Total 540 240 Output Total 3100 Balance -2560 240 Weight 50.8 kg Intake: Oral 240 240 Hemodialysis 300 Output: Hemodialysis 3100 Other: # Voids 0 1 # Bowel Movements 1 - Exam GENERAL EXAM: Alert, and very pleasant, 30-year-old white female, on room air with pulse ox of 99% comfortable in no apparent distress. Patient does not make eye contact - patient is legally blind HEAD: Normocephalic/atraumatic. EYES: Normal reaction of pupils, equal size. Conjunctiva pink, sclera white. NOSE: Clear with pink turbinates. THROAT: No erythema or exudates. NECK: No masses, no JVD, no thyroid enlargement, no adenopathy. CHEST: No chest wall deformity. Symmetrical expansion. LUNGS: Equal air entry with a few scattered crackles but no wheeze, rhonchi or dullness. CVS: Regular rate and rhythm, normal S1 and S2, no gallops, no murmurs, no rubs ABDOMEN: Soft, nontender. No hepatosplenomegaly, normal bowel sounds, no guarding or rigidity. EXTREMITIES: No clubbing, no edema, no cyanosis, 2+ pulses and upper and lower extremities. patient has a fistula in her left upper extremity MUSCULOSKELETAL: Muscle strength and tone normal. SPINE: No scoliosis or deformity SKIN: No rashes CENTRAL NERVOUS SYSTEM: Alert and oriented -3. No focal deficits, tone is normal in all 4 extremities. PSYCHIATRIC: Alert and oriented -3. Appropriate affect. Intact judgment and insight. - Labs CBC & Chem 7: 06/14/21 10:02 06/14/21 10:02 Labs: Abnormal Lab Results - Last 24 Hours (Table) 06/14/21 06/14/21 06/15/21 Range/Units 16:20 19:52 06:07 POC Glucose (mg/dL) 203 H 159 H 436 H (75-99) mg/dL 06/15/21 Range/Units 11:30 POC Glucose (mg/dL) 318 H (75-99) mg/dL Microbiology - Last 24 Hours (Table) 06/11/21 18:40 Blood Culture - Preliminary Blood No Growth after 72 hours 06/13/21 13:57 Blood Culture - Preliminary Blood No Growth after 24 hours Assessment and Plan Plan: #1. Acute mental status changes secondary to hypoglycemia, improved, and shaye ent seems to be back to baseline #2. Bilateral pneumonic infiltrates, highly suggestive of septic emboli, although the clinical history does not point to septic emboli, patient had negative blood cultures, and she had no history of IV drug abuse, she also had a relatively normal echocardiogram. #3. History of end-stage renal disease on hemodialysis. #4. History of diabetic retinopathy. Patient is legally blind. #5. History of seizure disorder. #6. Benign essential hypertension. #7. Elevated pro calcitonin level of 1.38. Plan: follow-up chest x-ray has been reviewed, showing no acute pulmonary process Clinically patient denies any pulmonary symptoms remains on room air, no fever or chills mentation seems to be back to baseline From pulmonary perspective patient could be switched to oral antibiotics to complete a ten-day course of antibiotics, will defer to ID service for recomme ndation for discharge antibiotics She could be considered for discharge home when cleared by other consultants on the case I performed a history & physical examination of the patient and discussed their management with my nurse practitioner, Shraddha Alaniz. I reviewed the nurse practitioner's note and agree with the documented findings and plan of care. Lung sounds are positive for a few crackles at the base throughout the lung herr. The findings and the impression was discussed with the patient. I attest to the documentation by the nurse practitioner. Time with Patient: Less than 30
--- NOTE | 2021-06-15 15:38 | P.PN ---
Subjective Progress Note Date: 06/15/21 The patient is seen at bedside and per nurse no further seizure. She feels she is doing well and denies any neurological problems. Objective - Vital Signs Vital signs: Vital Signs Temp 97.9 F 06/15/21 11:50 Pulse 67 06/15/21 14:00 Resp 17 06/15/21 14:00 BP 139/77 06/15/21 11:50 Pulse Ox 99 06/15/21 11:50 Intake & Output 06/14/21 06/15/21 06/15/21 18:59 06:59 18:59 Intake Total 540 240 Output Total 3100 Balance -2560 240 Weight 50.8 kg Intake: Oral 240 240 Hemodialysis 300 Output: Hemodialysis 3100 Other: # Voids 0 1 # Bowel Movements 1 - Exam Gen.: The patient is reclining in the bed. She is in no acute distress. She is slightly sleepy. She is thin. Neurological examination Mental status exam: The patient is awake, alert and oriented to self, place and time. Patient is following commands. No aphasia or neglect. Cranial nerves: Pupils are equal at 5 mm and nonreactive. Visual field could not be assessed because of her blindness of both eyes (old). Extraocular movements are intact. There is no nystagmus. Facial sensation is intact. There is no facial asymmetry. Shoulder shrug is symmetric. Tongue protrudes midline. No dysarthria. Motor: Moving all extremities above gravity and no focality noted. Sensation: Grossly intact to light touch throughout. Coordination: Finger to nose testing is intact. WORK-UP: Grant virus PCR was not detected. ESR is 13. CT of the head is reported as dilation of the atria/occipital horns of the lateral ventricles. 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 - Labs CBC & Chem 7: 06/14/21 10:02 06/14/21 10:02 Labs: Abnormal Lab Results - Last 24 Hours (Table) 06/14/21 06/14/21 06/15/21 Range/Units 16:20 19:52 06:07 POC Glucose (mg/dL) 203 H 159 H 436 H (75-99) mg/dL 06/15/21 Range/Units 11:30 POC Glucose (mg/dL) 318 H (75-99) mg/dL Microbiology - Last 24 Hours (Table) 06/11/21 18:40 Blood Culture - Preliminary Blood No Growth after 72 hours 06/13/21 13:57 Blood Culture - Preliminary Blood No Growth after 24 hours Assessment and Plan Assessment: Altered mental status, multifactoria metabolic encephalopathy (hypoglycemia versus hypertension versus hyponatremia versus dehydration versus acute on chronic kidney injury)----mentation improved. Reported history of "seizure disorder" Uncontrolled Diabetes mellitus type I (last HbA1c is 9.4 on 03/2021) Diabetic neuropathy Diabetic retinopathy and is legally blind in both eyes End-stage renal disease on hemodialysis Plan: * Routine EEG today: Is abnormal. The back or slowing suggestive of mild encep halopathy likely due to metabolic abnormality. There is no focal slowing, epileptiform discharges or seizure. * Ordered an ambulatory 2.5 hour EEG as an outpatient because of the his di agnosis of seizure as well as abnormal CT head (CT of the head is reported as dilation of the atria/occipital horns of the lateral ventricles. 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 The EEG will be correlated by the technical supervisor. * There is family history of seizure (father). * Q4 hour neuro-checks. * Defer the rest of the medical management to the primary team * Upon discharge recommend the patient to follow up with a neurologist within 1- 2 weeks. The plan is discussed with patient and her nurse. Patient is clear from neurological perspective. Adolfo Rajan M.D. Neuro-Hospitalist Time with Patient: Less than 30
--- NOTE | 2021-06-16 00:55 | P.DS ---
Providers Date of admission: 06/11/21 15:10 Expected date of discharge: 06/15/21 Attending physician: Hector Pena Consults: 06/11/21 15:08 Consult Physician Urgent Consulting Provider: [facility] Consult Reason/Comments: Elevated troponin Do you want consulting provider notified?: Yes Consult Physician Urgent Consulting Provider: Aurelia Poe Consult Reason/Comments: Missed dialysis Do you want consulting provider notified?: Yes 06/11/21 18:15 Consult Physician Routine Consulting Provider: Russel Guerra Consult Reason/Comments: high trops Do you want consulting provider notified?: Yes 06/11/21 23:31 Consult Physician Routine Consulting Provider: Adolfo Rajan Consult Reason/Comments: AMS Do you want consulting provider notified?: Yes, Notify in am 06/12/21 17:11 Consult Physician Routine Consulting Provider: Falguni Gracia Consult Reason/Comments: bilat pneumonia, ? cavitating Do you want consulting provider notified?: Yes 06/13/21 16:25 Consult Physician Routine Consulting Provider: Adriana Ordonez Consult Reason/Comments: multifocal cavitating pneumonia Do you want consulting provider notified?: Yes Primary care physician: Edith Cruz Hospital Course: Final Diagnosis Change in Mental status due to metabolic encephalopathy, multifactorial Acute bilateral multifocal pneumonia, possibly gram-negative sepsis and cavita ting pneumonia ruled out Increased white blood count End-stage renal disease Hyponatremia Troponin 0.219, ruled out acute coronary event or acute myocardial infarction ruled out seizure disorder Accelerated hypertension and hypertensive urgency History of noncompliance History of CVA, TIA history of hypertension diabetes mellitus type 2 Peripheral neuropathy History of legal blindness Full code Discharge disposition Patient is being discharged in a stable condition with guarded prognosis to home. Patient will follow-up with Dr. Cruz in the outpatient setting upon discharge. Patient is to continue with oral ceftin BID for one week on discharge. Patient is to follow-up with cardiology, nephrology, endocrine, neurology in the outpatient setting. Recommend repeat labs for CBC and CMP in the outpatient setting. Continue hemodialysis M/W/F. Total time taken is greater than 35 minutes. Hospital course This is a 30-year-old female who was recently admitted with change in mental status, hyperlipidemia, bilateral multifocal pneumonia and is being closely monitored. Patient has ESRD and maintained on Mon/Mon/Mon hemodialysis schedule. Patient is currently receiving dialysis today and is lethargic although arousable. Patient denies any shortness of breath and patient is afebrile. Pulmonary consulted along with infectious disease. Nephrology and neurology following. EEG ordered. 06/15/2021 Patient seen in follow up this morning and states feeling much better and would like to go home. Patient was evaluated by pulmonary, ID, and neurology and recommend close outpatient follow up on discharge. EEG done showing no seizure like activity noted and will not be started on any antiepileptics. Patient to follow up with pulmonary outpatient in [address] chest for abnormalities found on this admission. Patient to continue current diabetic regimen and continued to encourage endocrine follow up. Patient reports to awaiting pcp to finish a referral there. Currently no reports of chest pain, worsening shortness of breath, or palpitations. Patient is afebrile. No reports of nausea or vomiting and patient is tolerating diet. Patient will be discharged home today. Guarded prognosis as patient is high risk for readmissions. Recommend to continue hemodialysis schedule of M//. Physical Exam: Gen: This is 30-year-old fmale, alert and oriented 3. HEENT: Head is atraumatic, normocephalic. Pupils equal, round. Sclerae is anicteric. NECK: Supple. No JVD. No lymphadenopathy. No thyromegaly. LUNGS: Diminished breath sounds bilaterally with no wheezing or rhonchi noted. No intercostal retractions. HEART: S1, S2 are muffled ABDOMEN: Soft. Bowel sounds are present. No masses. No tenderness. EXTREMITIES: No pedal edema. No calf tenderness. NEUROLOGICAL: Patient is awake, alert and oriented 3, no focal deficits Please refer to medication reconciliation sheet for a list of medications. Plan - Discharge Summary New Discharge Prescriptions: New Cefuroxime Axetil [Ceftin] 500 mg PO BID 7 Days #14 tab Continue Aspirin EC [Ecotrin Low Dose] 81 mg PO DAILY INSULIN LISPRO (HumaLOG) [humaLOG] See Protocol SQ AC-TID Escitalopram [Lexapro] 20 mg PO DAILY hydrALAZINE HCL [Apresoline] 100 mg PO TID Irbesartan [Avapro] 75 mg PO DAILY rOPINIRole HCL [Requip] 0.5 mg PO HS Sevelamer [Renvela] 800 mg PO TID-W/MEALS 30 Days #90 tab Insulin Glargine [Lantus Vial] 15 unit SQ DAILY #0 Glucagon Emergency Kit 1 mg IM ONCE PRN #1 kit PRN Reason: Hypoglycemia Isosorbide Mononitrate ER [Imdur] 30 mg PO HS Furosemide [Lasix] 40 mg PO BID Ergocalciferol (Vitamin D2) [Drisdol (50,000 Iu)] 1,250 mcg PO COPELAND Carvedilol [Coreg] 25 mg PO BID Acetaminophen Tab [Tylenol] 650 mg PO Q6HR PRN #30 tab PRN Reason: Fever And/ Or Pain cloNIDine HCL [Catapres] 0.3 mg PO TID 30 Days #90 tab amLODIPine [Norvasc] 10 mg PO DAILY 30 Days #30 tab Pantoprazole Sodium [Protonix] 40 mg PO BID 30 Days #60 tab Discharge Medication List Aspirin EC [Ecotrin Low Dose] 81 mg PO DAILY 04/03/21 [History] Carvedilol [Coreg] 25 mg PO BID 04/03/21 [History] Ergocalciferol (Vitamin D2) [Drisdol (50,000 Iu)] 1,250 mcg PO COPELAND 04/03/21 [History] Furosemide [Lasix] 40 mg PO BID 04/03/21 [History] INSULIN LISPRO (HumaLOG) [humaLOG] See Protocol SQ AC-TID 04/03/21 [History] Isosorbide Mononitrate ER [Imdur] 30 mg PO HS 04/03/21 [History] Acetaminophen Tab [Tylenol] 650 mg PO Q6HR PRN #30 tab 04/09/21 [Rx] amLODIPine [Norvasc] 10 mg PO DAILY 30 Days #30 tab 04/15/21 [Rx] cloNIDine HCL [Catapres] 0.3 mg PO TID 30 Days #90 tab 04/15/21 [Rx] Escitalopram [Lexapro] 20 mg PO DAILY 04/17/21 [History] Irbesartan [Avapro] 75 mg PO DAILY 04/17/21 [History] hydrALAZINE HCL [Apresoline] 100 mg PO TID 04/17/21 [History] rOPINIRole HCL [Requip] 0.5 mg PO HS 04/17/21 [History] Insulin Glargine [Lantus Vial] 15 unit SQ DAILY #0 05/31/21 [Rx] Sevelamer [Renvela] 800 mg PO TID-W/MEALS 30 Days #90 tab 05/31/21 [Rx] Pantoprazole Sodium [Protonix] 40 mg PO BID 30 Days #60 tab 06/04/21 [Rx] Cefuroxime Axetil [Ceftin] 500 mg PO BID 7 Days #14 tab 06/15/21 [Rx] Glucagon Emergency Kit 1 mg IM ONCE PRN #1 kit 06/15/21 [Rx] Follow up Appointment(s)/Referral(s): Carol Leblanc MD [STAFF PHYSICIAN] - 4 Weeks Judah Downs MD [STAFF PHYSICIAN] - 2 Weeks Edith Cruz MD [Primary Care Provider] - 1-2 days Ksenia Strong MD [REFERRING] - 1 Week Ambulatory/Diagnostic Orders: Complete Blood Count w/diff [LAB.AMB] Time Frame: 3 Days, Location: None Selected Patient Instructions/Handouts: Seizure/Epilepsy Discharge Instructions & Follow-Up, Hypoglycemia in a Person with Diabetes (GEN) Activity/Diet/Wound Care/Special Instructions: Activity Limited until follow-up Continue taking medications as prescribed Follow-up primary care provider upon discharge Follow-up endocrine outpatient Follow-up neurology outpatient Follow-up nephrology outpatient follow up pulmonary outpatient in 3-4 weeks for possible repeat CT chest continue antibiotics until finished Continue with Monday/Monday/Monday hemodialysis Continue renal diet Discharge Disposition: HOME SELF-CARE
== END 2021-06-15 16:03 | disposition home or self-care (01) | DRG 871 ==
LOC: EC 12:25 → 3SCARD 15:10
PROVIDERS: ADMIT Hospitalist; ATTEND Hospitalist
DX: A41.50 Gram-negative sepsis, unspecified (principal); G93.41 Metabolic encephalopathy; J18.8 Other pneumonia, unspecified organism; N18.6 End stage renal disease; E87.1 Hypo-osmolality and hyponatremia; I12.0 Hypertensive chronic kidney disease with stage 5 chronic kidney disease or end stage renal disease; E13.42 Other specified diabetes mellitus with diabetic polyneuropathy; E87.6 Hypokalemia; G57.93 Unspecified mononeuropathy of bilateral lower limbs; H57.9 Unspecified disorder of eye and adnexa; K29.00 Acute gastritis without bleeding; R77.8 Other specified abnormalities of plasma proteins; E10.22 Type 1 diabetes mellitus with diabetic chronic kidney disease; E10.319 Type 1 diabetes mellitus with unspecified diabetic retinopathy without macular edema; E10.43 Type 1 diabetes mellitus with diabetic autonomic (poly)neuropathy; E10.649 Type 1 diabetes mellitus with hypoglycemia without coma; E10.65 Type 1 diabetes mellitus with hyperglycemia; E78.5 Hyperlipidemia, unspecified; Z20.822 Contact with and (suspected) exposure to COVID-19; E86.0 Dehydration; E87.70 Fluid overload, unspecified; G25.81 Restless legs syndrome; G40.909 Epilepsy, unspecified, not intractable, without status epilepticus; H54.8 Legal blindness, as defined in USA; I16.0 Hypertensive urgency; I51.7 Cardiomegaly; K31.84 Gastroparesis; M89.8X9 Other specified disorders of bone, unspecified site; M89.9 Disorder of bone, unspecified; Z79.4 Long term (current) use of insulin; Z79.82 Long term (current) use of aspirin; Z79.899 Other long term (current) drug therapy; Z80.8 Family history of malignant neoplasm of other organs or systems; Z82.0 Family history of epilepsy and other diseases of the nervous system; Z82.49 Family history of ischemic heart disease and other diseases of the circulatory system; Z86.73 Personal history of transient ischemic attack (TIA), and cerebral infarction without residual deficits; Z91.19 Patient's noncompliance with other medical treatment and regimen; Z98.891 History of uterine scar from previous surgery; Z99.2 Dependence on renal dialysis
CPT/HCPCS: 36415; 36600; 70450; 71045; 71046; 71250; 80048; 80053; 81001; 82805; 83605; 83735; 84145; 84484; 85025; 85379; 85610; 85652; 85730; 86038; 86140; 86255; 86431; 87040; 87635; 90935; 93005; 93306; 95816; 99285

== ENCOUNTER 2021-06-21 19:18 | Emergency (ER) | payer MEDICARE ==
[2021-06-21 19:41] VITALS: TEMP 98
[2021-06-21] MEDS ORDERED: METOCLOPRAMIDE 5 MG/ML 2 ML VIAL IVP STA (21:09)
[2021-06-21] MEDS ORDERED: hydrALAZINE HCL 20 MG/ML 1 ML VIAL IVP STA ×2 (21:09→23:21)
[2021-06-21] MEDS ORDERED: HYDROmorphone 0.5 MG/0.5 ML SYRINGE IVP STA (21:09)
[2021-06-21] MEDS ORDERED: diphenhydrAMINE 50 MG/ML 1 ML VIAL IVP STA (21:09)
[2021-06-21 21:46] LABS: Basophils % (A) 1 %; Eosinophils # (A) 0.1 k/uL (0-0.7); Eosinophils % (A) 2 %; HCT 26.5 % (34.0-46.0); Lymphocytes # (A) 0.9 k/uL (1.0-4.8); Lymphocytes % (A) 27 %; MCH 30.7 pg (25.0-35.0); MCHC 35.8 g/dL (31.0-37.0); Mean Platelet Volume 9.4; Monocytes # (A) 0.2 k/uL (0-1.0); Monocytes % (A) 6 %; Neutrophils # (A) 2.1 k/uL (1.3-7.7); Neutrophils % (A) 62 %; Platelet Count 139 k/uL (150-450); RBC 3.09 m/uL (3.80-5.40); RDW 14.8 % (11.5-15.5); WBC 3.4 k/uL (3.8-10.6)
[2021-06-21 21:57] LABS: INR 0.9 (<1.2); Partial Thromboplastin Time 27.3 sec (22.0-30.0); Prothrombin Time 10.1 sec (9.0-12.0)
[2021-06-21 22:02] LABS: ALT 24 U/L (4-34); AST 28 U/L (14-36); African American GFR (CKD) 15 (>60 ml/min/1.73 sqM); Albumin 3.6 g/dL (3.5-5.0); Alkaline Phosphatase 118 U/L (38-126); Anion Gap 10 mmol/L; Blood Urea Nitrogen 21 mg/dL (7-17); Calcium 8.6 mg/dL (8.4-10.2); Carbon Dioxide 31 mmol/L (22-30); Chloride 95 mmol/L (98-107); Glucose 157 mg/dL (74-99); Magnesium 1.9 mg/dL (1.6-2.3); Non-African American GFR(CKD) 13 (>60 ml/min/1.73 sqM); Phosphorus 3.4 mg/dL (2.5-4.5); Sodium 136 mmol/L (137-145); Total Bilirubin 0.7 mg/dL (0.2-1.3); Total Protein 6.2 g/dL (6.3-8.2)
[2021-06-21 22:04] LABS: HGB 9.5 gm/dL (11.4-16.0)
[2021-06-21 22:05] LABS: MCV 85.9 fL (80.0-100.0)
[2021-06-21] MEDS ORDERED: cloNIDine HCL 0.2 MG TAB PO STA (23:21)
[2021-06-21] MEDS ORDERED: SODIUM CHLORIDE 0.9% 50 ML IVPB ONE (23:45)
[2021-06-21] MEDS ORDERED: SOTROVIMAB (EUA) 500 MG in SODIUM CHLORIDE 0.9% 100 ML IVPB ONE (23:45)
[2021-06-22 00:51] VITALS: PULSE 80; RESP 16
--- NOTE | 2021-06-22 01:07 | ED ---
General Adult HPI - General Chief complaint: Recheck/Abnormal Lab/Rx Stated complaint: Hypertension Time Seen by Provider: 06/21/21 20:23 Source: patient, EMS Mode of arrival: EMS Limitations: no limitations - History of Present Illness Initial comments: 30 year-old female patient with past history significant for End-Stage Renal Disease with Dialysis MWF, hypertension, and diabetes presents to the emergency department for evaluation of high blood pressure, nausea, vomiting, and fevers. States she has had cough and nasal congestion as well. Patient states symptoms started on . States she was able to get dialysis on Monday and again on today. States that she does not think she kept down her BP meds today. Was given 0.4mg Clonidine at dialysis today. She is not vaccinated for COVID. Patient denies any recent rash, shortness of breath, chest pain, abdominal pain, back pain, numbness, tingling, dizziness, weakness, hematuria, dysuria, urinary urgency, urinary frequency, headache, visual changes, or any other complaints. - Related Data Home Medications Medication Instructions Recorded Confirmed Aspirin EC [Ecotrin Low Dose] 81 mg PO DAILY 04/03/21 06/21/21 Carvedilol [Coreg] 25 mg PO BID 04/03/21 06/21/21 Ergocalciferol (Vitamin D2) 1,250 mcg PO COPELAND 04/03/21 06/21/21 [Drisdol (50,000 Iu)] Furosemide [Lasix] 40 mg PO BID 04/03/21 06/21/21 INSULIN LISPRO (HumaLOG) [humaLOG] See Protocol SQ AC-TID 04/03/21 06/21/21 Isosorbide Mononitrate ER [Imdur] 30 mg PO HS 04/03/21 06/21/21 Escitalopram [Lexapro] 20 mg PO DAILY 04/17/21 06/21/21 Irbesartan [Avapro] 75 mg PO DAILY 04/17/21 06/21/21 hydrALAZINE HCL [Apresoline] 100 mg PO TID 04/17/21 06/21/21 rOPINIRole HCL [Requip] 0.5 mg PO HS 04/17/21 06/21/21 Previous Rx's Medication Instructions Recorded Acetaminophen Tab [Tylenol] 650 mg PO Q6HR PRN #30 tab 04/09/21 amLODIPine [Norvasc] 10 mg PO DAILY 30 Days #30 tab 04/15/21 cloNIDine HCL [Catapres] 0.3 mg PO TID 30 Days #90 tab 04/15/21 Insulin Glargine [Lantus Vial] 15 unit SQ DAILY #0 05/31/21 Sevelamer [Renvela] 800 mg PO TID-W/MEALS 30 Days #90 05/31/21 tab Pantoprazole Sodium [Protonix] 40 mg PO BID 30 Days #60 tab 06/04/21 Cefuroxime Axetil [Ceftin] 500 mg PO BID 7 Days #14 tab 06/15/21 Glucagon Emergency Kit 1 mg IM ONCE PRN #1 kit 06/15/21 Allergies Allergy/AdvReac Type Severity Reaction Status Date / Time Fish Containing Products Allergy Rash/Hives Verified 06/21/21 20:58 [Fish] iodine Allergy Anaphylaxis Verified 06/21/21 20:58 Review of Systems ROS Statement: Those systems with pertinent positive or pertinent negative responses have been documented in the HPI. ROS Other: All systems not noted in ROS Statement are negative. Past Medical History Past Medical History: CVA/TIA, Dialysis, Eye Disorder, Hypertension, Renal Disease, Seizure Disorder Additional Past Medical History / Comment(s): ESRD with hemodialysis M/W/F, IDDM type 1, DKA, neuropathy bilateral legs/feet, diabetic retinopathy/legally blind, RLS, recent hospitalizations for gastritis, severe hypokalemia, fluid retention in abdomin/legs. There is no definite diagnosis of seizure disorder History of Any Multi-Drug Resistant Organisms: None Reported Past Surgical History: Appendectomy, Section, Cholecystectomy Additional Past Surgical History / Comment(s): fistula left arm Past Anesthesia/Blood Transfusion Reactions: No Reported Reaction Past Psychological History: No Psychological Hx Reported Smoking Status: Never smoker Past Alcohol Use History: None Reported Past Drug Use History: None Reported - Past Family History Mother Family Medical History: Cancer, Hypertension Additional Family Medical History / Comment(s): Thyroid cancer, bipolar Father Family Medical History: Seizure Disorder Additional Family Medical History / Comment(s): Epilepsy General Exam Limitations: no limitations General appearance: alert, in no apparent distress, other (This is a well- developed, thin appearing adult female patient in no acute distress.) ENT exam: Present: normal exam, normal oropharynx, mucous membranes moist, TM's normal bilaterally Respiratory exam: Present: normal lung sounds bilaterally. Absent: respiratory distress, wheezes, rales, rhonchi, stridor Cardiovascular Exam: Present: regular rate, normal rhythm, normal heart sounds. Absent: systolic murmur, diastolic murmur, rubs, gallop, clicks GI/Abdominal exam: Present: soft, normal bowel sounds. Absent: distended, tenderness, guarding, rebound, rigid Neurological exam: Present: alert, oriented X3, CN II-XII intact Psychiatric exam: Present: normal affect, normal mood Skin exam: Present: warm, dry, intact, normal color. Absent: rash Course Vital Signs 06/21/21 06/21/21 06/21/21 19:37 21:09 21:35 Temperature 98.0 F Pulse Rate 84 80 80 Respiratory 18 12 12 Rate Blood Pressure 235/113 217/113 207/108 O2 Sat by Pulse 98 96 97 Oximetry 06/21/21 06/22/21 06/22/21 22:30 00:01 00:30 Temperature Pulse Rate 81 79 80 Respiratory 12 18 16 Rate Blood Pressure 193/101 205/106 195/99 O2 Sat by Pulse 96 97 96 Oximetry Medical Decision Making - Medical Decision Making 30 year-old female presenting for upper respiratory symptoms, nausea, and vomiting. She also reports elevated blood pressure. Has not been able to keep her meds down today. Physical examination reveals clear equal lung sounds which is no respiratory distress. Labs reviewed and did reveal decreased hemoglobin 9.5, patient denies any black or bloody stools. Denies any hematemesis. She did test positive for cold did here. He did give her blood pressure medications. She'll be discharged to follow-up with the primary care physician in one to 2 days. She is instructed to return of her blood pressures do not improve. She did meet criterion receive these sotrovimab infusion. She is agreeable with this plan. Case is discussed with my attending Dr. Garcia. - Lab Data Result diagrams: 06/21/21 21:05 06/21/21 21:05 Lab Results 06/21/21 06/21/21 06/21/21 Range/Units 21:05 21:05 21:05 WBC 3.4 L (3.8-10.6) k/uL RBC 3.09 L (3.80-5.40) m/uL Hgb 9.5 L D (11.4-16.0) gm/dL Hct 26.5 L (34.0-46.0) % MCV 85.9 D (80.0-100.0) fL MCH 30.7 (25.0-35.0) pg MCHC 35.8 (31.0-37.0) g/dL RDW 14.8 (11.5-15.5) % Plt Count 139 L (150-450) k/uL MPV 9.4 Neutrophils % 62 % Lymphocytes % 27 % Monocytes % 6 % Eosinophils % 2 % Basophils % 1 % Neutrophils # 2.1 (1.3-7.7) k/uL Lymphocytes # 0.9 L (1.0-4.8) k/uL Monocytes # 0.2 (0-1.0) k/uL Eosinophils # 0.1 (0-0.7) k/uL Basophils # 0.0 (0-0.2) k/uL PT 10.1 (9.0-12.0) sec INR 0.9 (<1.2) APTT 27.3 (22.0-30.0) sec Sodium 136 L (137-145) mmol/L Potassium 3.0 L (3.5-5.1) mmol/L Chloride 95 L (98-107) mmol/L Carbon Dioxide 31 H (22-30) mmol/L Anion Gap 10 mmol/L BUN 21 H (7-17) mg/dL Creatinine 4.36 H (0.52-1.04) mg/dL Est GFR (CKD-EPI)AfAm 15 (>60 ml/min/1.73 sqM) Est GFR (CKD-EPI)NonAf 13 (>60 ml/min/1.73 sqM) Glucose 157 H (74-99) mg/dL Calcium 8.6 (8.4-10.2) mg/dL Phosphorus 3.4 (2.5-4.5) mg/dL Magnesium 1.9 (1.6-2.3) mg/dL Total Bilirubin 0.7 (0.2-1.3) mg/dL AST 28 (14-36) U/L ALT 24 (4-34) U/L Alkaline Phosphatase 118 (38-126) U/L Troponin I (0.000-0.034) ng/mL Total Protein 6.2 L (6.3-8.2) g/dL Albumin 3.6 (3.5-5.0) g/dL Acetone, Qual Positive (Negative) Coronavirus (PCR) (Not Detectd) 06/21/21 06/21/21 Range/Units 21:05 21:05 WBC (3.8-10.6) k/uL RBC (3.80-5.40) m/uL Hgb (11.4-16.0) gm/dL Hct (34.0-46.0) % MCV (80.0-100.0) fL MCH (25.0-35.0) pg MCHC (31.0-37.0) g/dL RDW (11.5-15.5) % Plt Count (150-450) k/uL MPV Neutrophils % % Lymphocytes % % Monocytes % % Eosinophils % % Basophils % % Neutrophils # (1.3-7.7) k/uL Lymphocytes # (1.0-4.8) k/uL Monocytes # (0-1.0) k/uL Eosinophils # (0-0.7) k/uL Basophils # (0-0.2) k/uL PT (9.0-12.0) sec INR (<1.2) APTT (22.0-30.0) sec Sodium (137-145) mmol/L Potassium (3.5-5.1) mmol/L Chloride (98-107) mmol/L Carbon Dioxide (22-30) mmol/L Anion Gap mmol/L BUN (7-17) mg/dL Creatinine (0.52-1.04) mg/dL Est GFR (CKD-EPI)AfAm (>60 ml/min/1.73 sqM) Est GFR (CKD-EPI)NonAf (>60 ml/min/1.73 sqM) Glucose (74-99) mg/dL Calcium (8.4-10.2) mg/dL Phosphorus (2.5-4.5) mg/dL Magnesium (1.6-2.3) mg/dL Total Bilirubin (0.2-1.3) mg/dL AST (14-36) U/L ALT (4-34) U/L Alkaline Phosphatase (38-126) U/L Troponin I 0.018 (0.000-0.034) ng/mL Total Protein (6.3-8.2) g/dL Albumin (3.5-5.0) g/dL Acetone, Qual (Negative) Coronavirus (PCR) Detected A (Not Detectd) Disposition Clinical Impression: Hypertension, COVID-19 Disposition: HOME SELF-CARE Condition: Good Instructions (If sedation given, give patient instructions): Coronavirus Disease 2019 (COVID-19), Hypertension (ED) Additional Instructions: Take all medications as directed. Blood pressures remain elevated tomorrow return to the emergency room for further evaluation. Return for any new, worsening, or concerning symptoms. Is patient prescribed a controlled substance at d/c from ED?: No Referrals: None,Stated [Primary Care Provider] - 1-2 days Time of Disposition: 01:33
[2021-06-22] MEDS ORDERED: cloNIDine HCL 0.1 MG TAB PO STA (01:32)
[2021-06-22] MEDS ORDERED: amLODIPine 10 MG TAB PO STA (01:32)
[2021-06-22 01:54] VITALS: BP 190/103
== END 2021-06-22 01:55 | disposition home or self-care (01) ==
LOC: SUPCPDRO 19:18 → EC 19:18
DX: U07.1 COVID-19 (principal); I12.0 Hypertensive chronic kidney disease with stage 5 chronic kidney disease or end stage renal disease; E10.22 Type 1 diabetes mellitus with diabetic chronic kidney disease; E10.40 Type 1 diabetes mellitus with diabetic neuropathy, unspecified; E10.319 Type 1 diabetes mellitus with unspecified diabetic retinopathy without macular edema; E10.10 Type 1 diabetes mellitus with ketoacidosis without coma; N18.6 End stage renal disease; G40.909 Epilepsy, unspecified, not intractable, without status epilepticus; Z79.82 Long term (current) use of aspirin; Z79.899 Other long term (current) drug therapy; Z99.2 Dependence on renal dialysis
CPT/HCPCS: 36415; 80053; 82009; 83735; 84100; 84484; 85025; 85610; 85730; 87635; 99284; 96374; 96375 ×3; 96376; J0360 ×2; J1200; J2765; J1170; Q0247

== ENCOUNTER 2021-06-26 17:31 | Inpatient (IN) | payer MEDICARE ==
[2021-06-26] MEDS ORDERED: hydrALAZINE HCL 20 MG/ML 1 ML VIAL IVP STA (17:54)
[2021-06-26] MEDS ORDERED: ONDANSETRON 4 MG/2 ML VIAL IVP STA (17:55)
--- NOTE | 2021-06-26 18:02 | ED ---
General Adult HPI - General Chief complaint: Recheck/Abnormal Lab/Rx Stated complaint: High BP Time Seen by Provider: 06/26/21 17:48 Source: patient, RN notes reviewed, old records reviewed Mode of arrival: ambulatory Limitations: no limitations - History of Present Illness Initial comments: 30-year-old female with end-stage renal disease presents for evaluation of nausea and hypertension. Patient states that she was recently diagnosed with coronavirus and she has had some nausea and vomiting making it difficult to keep her antihypertensive medications down. She states she had taken her morning medications but subsequently had vomited. She did receive hemodialysis today and received a complete treatment. She denies dyspnea. 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 - Related Data Home Medications Medication Instructions Recorded Confirmed Aspirin EC [Ecotrin Low Dose] 81 mg PO DAILY 04/03/21 06/26/21 Carvedilol [Coreg] 25 mg PO BID 04/03/21 06/26/21 Ergocalciferol (Vitamin D2) 1,250 mcg PO COPELAND 04/03/21 06/26/21 [Drisdol (50,000 Iu)] Furosemide [Lasix] 40 mg PO BID 04/03/21 06/26/21 INSULIN LISPRO (HumaLOG) [humaLOG] See Protocol SQ AC-TID 04/03/21 06/26/21 Isosorbide Mononitrate ER [Imdur] 30 mg PO HS 04/03/21 06/26/21 Escitalopram [Lexapro] 20 mg PO DAILY 04/17/21 06/26/21 Irbesartan [Avapro] 75 mg PO DAILY 04/17/21 06/26/21 hydrALAZINE HCL [Apresoline] 100 mg PO TID 04/17/21 06/26/21 rOPINIRole HCL [Requip] 0.5 mg PO HS 04/17/21 06/26/21 Previous Rx's Medication Instructions Recorded Acetaminophen Tab [Tylenol] 650 mg PO Q6HR PRN #30 tab 04/09/21 amLODIPine [Norvasc] 10 mg PO DAILY 30 Days #30 tab 04/15/21 cloNIDine HCL [Catapres] 0.3 mg PO TID 30 Days #90 tab 04/15/21 Insulin Glargine [Lantus Vial] 15 unit SQ DAILY #0 05/31/21 Sevelamer [Renvela] 800 mg PO TID-W/MEALS 30 Days #90 05/31/21 tab Pantoprazole Sodium [Protonix] 40 mg PO BID 30 Days #60 tab 06/04/21 Glucagon Emergency Kit 1 mg IM ONCE PRN #1 kit 06/15/21 Allergies Allergy/AdvReac Type Severity Reaction Status Date / Time Fish Containing Products Allergy Rash/Hives Verified 06/26/21 19:31 [Fish] iodine Allergy Anaphylaxis Verified 06/26/21 19:31 Review of Systems ROS Statement: Those systems with pertinent positive or pertinent negative responses have been documented in the HPI. ROS Other: All systems not noted in ROS Statement are negative. Past Medical History Past Medical History: CVA/TIA, Dialysis, Eye Disorder, Hypertension, Renal Disease, Seizure Disorder Additional Past Medical History / Comment(s): ESRD with hemodialysis M/W/F, IDDM type 1, DKA, neuropathy bilateral legs/feet, diabetic retinopathy/legally blind, RLS, recent hospitalizations for gastritis, severe hypokalemia, fluid retention in abdomin/legs. There is no definite diagnosis of seizure disorder History of Any Multi-Drug Resistant Organisms: None Reported Past Surgical History: Appendectomy, Section, Cholecystectomy Additional Past Surgical History / Comment(s): fistula left arm Past Anesthesia/Blood Transfusion Reactions: No Reported Reaction Past Psychological History: No Psychological Hx Reported Smoking Status: Never smoker Past Alcohol Use History: None Reported Past Drug Use History: None Reported - Past Family History Mother Family Medical History: Cancer, Hypertension Additional Family Medical History / Comment(s): Thyroid cancer, bipolar Father Family Medical History: Seizure Disorder Additional Family Medical History / Comment(s): Epilepsy General Exam Limitations: no limitations General appearance: alert, in no apparent distress Head exam: Present: atraumatic, normocephalic Eye exam: Present: normal appearance, PERRL ENT exam: Present: mucous membranes moist Neck exam: Present: normal inspection. Absent: tenderness, meningismus Respiratory exam: Present: normal lung sounds bilaterally. Absent: respiratory distress Cardiovascular Exam: Present: regular rate, normal rhythm GI/Abdominal exam: Present: soft. Absent: distended, tenderness Neurological exam: Present: alert, oriented X3, CN II-XII intact. Absent: motor sensory deficit Psychiatric exam: Present: normal affect, normal mood Skin exam: Present: warm, dry, intact. Absent: cyanosis, diaphoretic Course Vital Signs 06/26/21 06/26/21 06/26/21 17:43 18:55 19:38 Temperature 98.5 F Pulse Rate 90 89 89 Respiratory 18 18 20 Rate Blood Pressure 203/109 222/114 194/108 O2 Sat by Pulse 97 97 95 Oximetry 06/26/21 20:33 Temperature Pulse Rate 87 Respiratory 18 Rate Blood Pressure 189/93 O2 Sat by Pulse 95 Oximetry EKG Findings - EKG Comments: EKG Findings:: EKG: Normal sinus rhythm, prolonged QT, rate of 91, UT interval 146, QRS duration 86, QTC 482 similar QRS complex compared to previous EKGs. Medical Decision Making - Medical Decision Making 30-year-old female presenting with elevated blood pressure, history of hypertension, end-stage renal disease. Patient has not been able to take her medications as prescribed due to nausea secondary to coronavirus. She does not appear fluid overloaded. She had a complete session of dialysis today. Her laboratory studies are unremarkable for this patient. Patient's receives IV hydralazine as well as antiemetics in the emergency department without significant improvement in her blood pressure. She will be monitored overnight with IV hydralazine as well as IV antiemetics. Her oral antihypertensives will also be ordered. She will be admitted to [facility]. They have been paged. - Lab Data Result diagrams: 06/26/21 17:59 06/26/21 17:59 Lab Results 06/26/21 06/26/21 06/26/21 Range/Units 17:59 17:59 20:03 WBC 4.5 (3.8-10.6) k/uL RBC 3.37 L (3.80-5.40) m/uL Hgb 10.8 L (11.4-16.0) gm/dL Hct 29.4 L (34.0-46.0) % MCV 87.2 (80.0-100.0) fL MCH 31.9 (25.0-35.0) pg MCHC 36.6 (31.0-37.0) g/dL RDW 14.2 (11.5-15.5) % Plt Count 200 (150-450) k/uL MPV 9.3 Neutrophils % 64 % Lymphocytes % 24 % Monocytes % 7 % Eosinophils % 3 % Basophils % 1 % Neutrophils # 2.8 (1.3-7.7) k/uL Lymphocytes # 1.1 (1.0-4.8) k/uL Monocytes # 0.3 (0-1.0) k/uL Eosinophils # 0.1 (0-0.7) k/uL Basophils # 0.0 (0-0.2) k/uL Sodium 137 (137-145) mmol/L Potassium 3.8 (3.5-5.1) mmol/L Chloride 95 L (98-107) mmol/L Carbon Dioxide 35 H (22-30) mmol/L Anion Gap 7 mmol/L BUN 25 H (7-17) mg/dL Creatinine 4.24 H (0.52-1.04) mg/dL Est GFR (CKD-EPI)AfAm 15 (>60 ml/min/1.73 sqM) Est GFR (CKD-EPI)NonAf 13 (>60 ml/min/1.73 sqM) Glucose 301 H (74-99) mg/dL Calcium 8.6 (8.4-10.2) mg/dL Total Bilirubin 0.6 (0.2-1.3) mg/dL AST 24 (14-36) U/L ALT 20 (4-34) U/L Alkaline Phosphatase 96 (38-126) U/L Total Protein 6.5 (6.3-8.2) g/dL Albumin 3.8 (3.5-5.0) g/dL Coronavirus (PCR) Detected A (Not Detectd) Disposition Clinical Impression: COVID-19, ESRD (end stage renal disease) on dialysis, Hypertensive urgency Disposition: ADMITTED IP TO THIS [facility] Condition: Stable Is patient prescribed a controlled substance at d/c from ED?: No Referrals: Edith Cruz MD [Primary Care Provider] - 1-2 days Decision to Admit Reason: Admit from EC Decision Date: 06/26/21 Decision Time: 20:36
[2021-06-26 18:18] LABS: Basophils % (A) 1 %; Eosinophils # (A) 0.1 k/uL (0-0.7); Eosinophils % (A) 3 %; HCT 29.4 % (34.0-46.0); HGB 10.8 gm/dL (11.4-16.0); Lymphocytes # (A) 1.1 k/uL (1.0-4.8); Lymphocytes % (A) 24 %; MCH 31.9 pg (25.0-35.0); MCHC 36.6 g/dL (31.0-37.0); MCV 87.2 fL (80.0-100.0); Mean Platelet Volume 9.3; Monocytes # (A) 0.3 k/uL (0-1.0); Monocytes % (A) 7 %; Neutrophils # (A) 2.8 k/uL (1.3-7.7); Neutrophils % (A) 64 %; Platelet Count 200 k/uL (150-450); RBC 3.37 m/uL (3.80-5.40); RDW 14.2 % (11.5-15.5); WBC 4.5 k/uL (3.8-10.6)
[2021-06-26 18:26] LABS: Albumin 3.8 g/dL (3.5-5.0); Calcium 8.6 mg/dL (8.4-10.2); Potassium 3.8 mmol/L (3.5-5.1); Total Bilirubin 0.6 mg/dL (0.2-1.3); Total Protein 6.5 g/dL (6.3-8.2)
[2021-06-26] MEDS ORDERED: MORPHINE SULFATE 4 MG/ML SYRINGE IVP STA (19:08)
[2021-06-26] MEDS ORDERED: METOCLOPRAMIDE 5 MG/ML 2 ML VIAL IVP STA (19:28)
[2021-06-26] MEDS ORDERED: cloNIDine HCL 0.1 MG TAB PO STA ×2 (19:54→19:55)
[2021-06-26] MEDS ORDERED: HYDROmorphone 0.5 MG/0.5 ML SYRINGE IVP PRN (20:31)
[2021-06-26] MEDS ORDERED: ONDANSETRON 4 MG/2 ML VIAL IVP PRN (20:31)
[2021-06-26] MEDS ORDERED: NALOXONE 0.4 MG/ML 1 ML VIAL IV PRN (20:31)
[2021-06-26] MEDS: PANTOPRAZOLE 40 MG TABLET PO SCH (21:59)
[2021-06-26] MEDS: carvediloL 12.5 MG TAB PO SCH (21:59)
[2021-06-26] MEDS: FUROSEMIDE 40 MG TAB PO SCH (22:00)
[2021-06-26] MEDS: ISOSORBIDE MONONITRATE ER 30 MG TAB.ER.24H PO SCH (22:00)
[2021-06-26 22:10] LABS: Glucose,Whole Blood 300 mg/dL (75-99)
[2021-06-26] MEDS: cloNIDine HCL 0.1 MG TAB PO SCH (22:47)
[2021-06-27] MEDS ORDERED: INSULIN ASPART (NovoLOG) 100 UNIT/ML VIAL SQ SCH ×2 (07:30→17:30)
[2021-06-27 08:05] LABS: Glucose,Whole Blood 590 mg/dL (75-99)
[2021-06-27 08:05] LABS: Glucose,Whole Blood 576 mg/dL (75-99)
[2021-06-27] MEDS ORDERED: ESCITALOPRAM 20 MG TAB PO SCH (09:00)
[2021-06-27] MEDS ORDERED: INSULIN DETEMIR (LEVEMIR) 100 UNIT/ML SYR SQ SCH ×2 (09:00→21:00)
--- NOTE | 2021-06-27 10:11 | P.NPCON ---
History of Present Illness - Reason for Consult end stage renal disease - History of Present Illness Reason for consultation: End-stage renal disease History of present illness: Patient is a 30-year-old female seen in renal consultation for end-stage renal disease. She is maintained on hemodialysis on Monday schedule but currently on a Monday schedule as she is going to a different unit due to Covid 19 infection. Last hemodialysis was on Monday. Patient states her blood pressure was high during the treatment and she was advised to come to the hospital. She denies chest pain or shortness of breath. She did feel nauseous and vomited once. No fever or chills. No cough. Patient is legally blind. She has long-standing history of diabetes. Blood sugars have been on the higher side. She did test positive for COVID-19 this admission as well. No diarrhea. No further vomiting. Blood pressure remains high. Vital signs are stable. Blood pressure high. General: The patient appeared well nourished and normally developed. HEENT: Head exam is unremarkable. LUNGS: Breath sounds decreased. HEART: Rate and Rhythm are regular. ABDOMEN: Soft, no distention. EXTREMITITES: No edema. Past Medical History Past Medical History: CVA/TIA, Dialysis, Eye Disorder, Hypertension, Renal Disease, Seizure Disorder Additional Past Medical History / Comment(s): ESRD with hemodialysis M/W/F, IDDM type 1, DKA, neuropathy bilateral legs/feet, diabetic retinopathy/legally blind, RLS, recent hospitalizations for gastritis, severe hypokalemia, fluid retention in abdomin/legs. There is no definite diagnosis of seizure disorder History of Any Multi-Drug Resistant Organisms: None Reported Past Surgical History: Appendectomy, Section, Cholecystectomy Additional Past Surgical History / Comment(s): fistula left arm Past Anesthesia/Blood Transfusion Reactions: No Reported Reaction Past Psychological History: No Psychological Hx Reported Additional Psychological History / Comment(s): Pt resides with her father and pt's 2 children. Pt gets to dialysis by grandparents/family or cab. Smoking Status: Unknown if ever smoked Past Alcohol Use History: None Reported Past Drug Use History: None Reported - Past Family History Mother Family Medical History: Cancer, Hypertension Additional Family Medical History / Comment(s): Thyroid cancer, bipolar Father Family Medical History: Seizure Disorder Additional Family Medical History / Comment(s): Epilepsy Medications and Allergies Home Medications Medication Instructions Recorded Confirmed Type Aspirin EC [Ecotrin Low Dose] 81 mg PO DAILY 04/03/21 06/26/21 History Carvedilol [Coreg] 25 mg PO BID 04/03/21 06/26/21 History Ergocalciferol (Vitamin D2) 1,250 mcg PO COPELAND 04/03/21 06/26/21 History [Drisdol (50,000 Iu)] Furosemide [Lasix] 40 mg PO BID 04/03/21 06/26/21 History INSULIN LISPRO (HumaLOG) [humaLOG] See Protocol SQ AC-TID 04/03/21 06/26/21 History Isosorbide Mononitrate ER [Imdur] 30 mg PO HS 04/03/21 06/26/21 History Acetaminophen Tab [Tylenol] 650 mg PO Q6HR PRN #30 tab 04/09/21 06/26/21 Rx amLODIPine [Norvasc] 10 mg PO DAILY 30 Days #30 tab 04/15/21 06/26/21 Rx cloNIDine HCL [Catapres] 0.3 mg PO TID 30 Days #90 tab 04/15/21 06/26/21 Rx Escitalopram [Lexapro] 20 mg PO DAILY 04/17/21 06/26/21 History Irbesartan [Avapro] 75 mg PO DAILY 04/17/21 06/26/21 History hydrALAZINE HCL [Apresoline] 100 mg PO TID 04/17/21 06/26/21 History rOPINIRole HCL [Requip] 0.5 mg PO HS 04/17/21 06/26/21 History Insulin Glargine [Lantus Vial] 15 unit SQ DAILY #0 05/31/21 06/26/21 Rx Sevelamer [Renvela] 800 mg PO TID-W/MEALS 30 Days #90 05/31/21 06/26/21 Rx tab Pantoprazole Sodium [Protonix] 40 mg PO BID 30 Days #60 tab 06/04/21 06/26/21 Rx Glucagon Emergency Kit 1 mg IM ONCE PRN #1 kit 06/15/21 06/26/21 Rx Allergies Allergy/AdvReac Type Severity Reaction Status Date / Time Fish Containing Products Allergy Rash/Hives Verified 06/26/21 19:31 [Fish] iodine Allergy Anaphylaxis Verified 06/26/21 19:31 Physical Exam Vitals: Vital Signs Temp Pulse Pulse Resp BP BP BP 06/27/21 07:00 97.9 F 85 16 197/96 06/27/21 02:26 98.4 F 81 16 175/83 06/26/21 21:43 98.7 F 87 14 208/104 06/26/21 20:33 87 18 189/93 06/26/21 19:38 89 20 194/108 06/26/21 18:55 89 18 222/114 06/26/21 17:43 98.5 F 90 18 203/109 Pulse Ox 06/27/21 07:00 94 L 06/27/21 02:26 95 06/26/21 21:43 97 06/26/21 20:33 95 06/26/21 19:38 95 06/26/21 18:55 97 06/26/21 17:43 97 Intake and Output 06/26/21 06/27/21 06/27/21 22:59 06:59 14:59 Other: Voiding Method Toilet # Voids 0 0 Weight 45.359 kg Results - Lab Results Most recent lab results Calcium 8.6 mg/dL (8.4-10.2) 06/26/21 17:59 06/26/21 17:59 06/26/21 17:59 Assessment and Plan Plan: Assessment: 1. End-stage renal disease maintained on hemodialysis on Monday schedule but currently on a Monday schedule due to COVID-19 infection. 2. COVID-19 infection. 3. Hypertension with chronic kidney disease. Uncontrolled. Exacerbated by nausea and vomiting. 4. Diabetes mellitus. 5. Chronic kidney disease mineral bone disease. 6. Nausea and vomiting. Possibly from diabetic gastroparesis. Improved. Plan: Hemodialysis on Monday. Resume home antihypertensives. Thank you for the consultation. I will continue to follow the patient with you during her hospital stay.
[2021-06-27] MEDS: ASPIRIN 81 MG PO SCH (10:18)
[2021-06-27] MEDS: carvediloL 12.5 MG TAB PO SCH ×2 (10:18→21:26)
[2021-06-27] MEDS: FUROSEMIDE 40 MG TAB PO SCH ×2 (10:18→21:26)
[2021-06-27] MEDS: SEVELAMER 800 MG TAB PO SCH ×3 (10:19→18:07)
[2021-06-27] MEDS: cloNIDine HCL 0.1 MG TAB PO SCH ×3 (10:19→21:26)
[2021-06-27] MEDS: LOSARTAN 25 MG TAB PO SCH (10:19)
[2021-06-27] MEDS: PANTOPRAZOLE 40 MG TABLET PO SCH ×2 (10:19→21:26)
[2021-06-27] MEDS: amLODIPine 10 MG TAB PO SCH (10:19)
[2021-06-27] MEDS: INSULIN ASPART (NovoLOG) 100 UNIT/ML VIAL SQ SCH ×3 (10:20→21:36)
--- NOTE | 2021-06-27 12:35 | XR ---
EXAMINATION TYPE: XR chest 1V DATE OF EXAM: 06/27/2021 COMPARISON: Chest radiograph 06/15/2021 HISTORY: Shortness of breath. COVID. TECHNIQUE: Single frontal view of the chest is obtained. FINDINGS: There is no focal air space opacity, pleural effusion, or pneumothorax seen. The cardiac silhouette size is within normal limits. The osseous structures are intact. IMPRESSION: No acute process.
[2021-06-27 12:46] LABS: Glucose,Whole Blood >600 mg/dL (75-99)
[2021-06-27 12:46] LABS: Glucose,Whole Blood >600 mg/dL (75-99)
[2021-06-27] MEDS: hydrALAZINE HCL 50 MG TAB PO SCH ×3 (12:56→21:25)
[2021-06-27 13:43] LABS: African American GFR (CKD) 10 (>60 ml/min/1.73 sqM); Anion Gap 8 mmol/L; Blood Urea Nitrogen 41 mg/dL (7-17); Calcium 8.3 mg/dL (8.4-10.2); Carbon Dioxide 32 mmol/L (22-30); Chloride 90 mmol/L (98-107); Non-African American GFR(CKD) 8 (>60 ml/min/1.73 sqM); Potassium 4.2 mmol/L (3.5-5.1); Sodium 130 mmol/L (137-145)
[2021-06-27 13:53] LABS: Glucose 624 mg/dL (74-99)
[2021-06-27] MEDS ORDERED: INSULIN REGULAR 100 UNIT in SODIUM CHLORIDE 0.9% 100 ML IV SCH (14:15)
[2021-06-27 15:22] LABS: Glucose,Whole Blood 595 mg/dL (75-99)
[2021-06-27 16:02] LABS: Glucose,Whole Blood 495 mg/dL (75-99)
[2021-06-27 16:25] LABS: Glucose,Whole Blood 376 mg/dL (75-99)
[2021-06-27 16:58] LABS: Glucose,Whole Blood 206 mg/dL (75-99)
[2021-06-27] MEDS ORDERED: diphenhydrAMINE 50 MG/ML 1 ML VIAL IVP STA (18:14)
[2021-06-27 19:07] LABS: Glucose,Whole Blood 55 mg/dL (75-99)
[2021-06-27 19:40] LABS: Glucose,Whole Blood 47 mg/dL (75-99)
[2021-06-27 19:48] LABS: Glucose,Whole Blood 46 mg/dL (75-99)
[2021-06-27] MEDS ORDERED: ERGOCALCIFEROL 1,250 MCG (50,000 IU) CAPSULE PO SCH (19:55)
[2021-06-27 20:01] LABS: Glucose,Whole Blood 69 mg/dL (75-99)
[2021-06-27 20:20] LABS: Glucose,Whole Blood 98 mg/dL (75-99)
[2021-06-27] MEDS: ISOSORBIDE MONONITRATE ER 30 MG TAB.ER.24H PO SCH (21:27)
--- NOTE | 2021-06-28 01:31 | P.HPIM ---
History of Present Illness H&P Date: 06/27/21 Chief Complaint: Nausea and vomiting Patient is a 30-year-old female with a known history of hypertension, ESRD on hemodialysis, diabetes type 1 and previous history of DKA, bilateral peripheral neuropathy of the legs, legally blind, restless leg syndrome, history of CVA/TIA and previous multiple admissions presents to ER due to complaints of nausea and hypertension. Patient has been having nausea and vomiting and unable to take her antihypertensive medications. Patient did have hemodialysis yesterday with complete treatment. Denied any complaints of chest pain. Mild shortness of breath. Patient was found to have elevated SBP is greater than 200 mmHg and was instructed to go to ER. Chest x-ray showed no acute cardiopulmonary process EKG showed normal sinus rhythm Patient blood pressure was 222/114 on admission and is currently saturating at 97% on room air. Laboratory data showed WBC 4.5 hemoglobin 10.8 and platelets 200 Sodium 137 potassium 3.8 chloride 95 bicarb is 35 BUN 25 and 25 and creatinine 4.24 and blood sugar 301 and A1c level is 9.4 Coronavirus PCR detected. Review of Systems Constitutional: Patient denies any fever or chills . No generalized weakness or weight loss. Abdomen: Patient does complain of nausea vomiting and abdominal pain. No diarrhea.. Cardiovascular: Patient denies any chest pain or short of breath no palpitations. Respiratory: patient denied any cough is from production. No shortness of breath Neurologic: Patient denied any numbness or tingling headache. Musculoskeletal: Patient denies any complaints of joint swelling or deformity. Skin: Negative Psychiatric: Negative Endocrine: No heat or cold intolerance. No recent weight gain. Genitourinary: No dysuria or hematuria. All other 14 point ROS negative except the above Past Medical History Past Medical History: CVA/TIA, Dialysis, Eye Disorder, Hypertension, Renal Disease, Seizure Disorder Additional Past Medical History / Comment(s): ESRD with hemodialysis M/W/F, IDDM type 1, DKA, neuropathy bilateral legs/feet, diabetic retinopathy/legally blind, RLS, recent hospitalizations for gastritis, severe hypokalemia, fluid retention in abdomin/legs. There is no definite diagnosis of seizure disorder History of Any Multi-Drug Resistant Organisms: None Reported Past Surgical History: Appendectomy, Section, Cholecystectomy Additional Past Surgical History / Comment(s): fistula left arm Past Anesthesia/Blood Transfusion Reactions: No Reported Reaction Past Psychological History: No Psychological Hx Reported Additional Psychological History / Comment(s): Pt resides with her father and pt's 2 children. Pt gets to dialysis by grandparents/family or cab. Smoking Status: Unknown if ever smoked Past Alcohol Use History: None Reported Past Drug Use History: None Reported - Past Family History Mother Family Medical History: Cancer, Hypertension Additional Family Medical History / Comment(s): Thyroid cancer, bipolar Father Family Medical History: Seizure Disorder Additional Family Medical History / Comment(s): Epilepsy Medications and Allergies Home Medications Medication Instructions Recorded Confirmed Type Aspirin EC [Ecotrin Low Dose] 81 mg PO DAILY 04/03/21 06/26/21 History Carvedilol [Coreg] 25 mg PO BID 04/03/21 06/26/21 History Ergocalciferol (Vitamin D2) 1,250 mcg PO [place] 04/03/21 06/26/21 History [Drisdol (50,000 Iu)] Furosemide [Lasix] 40 mg PO BID 04/03/21 06/26/21 History INSULIN LISPRO (HumaLOG) [humaLOG] See Protocol SQ AC-TID 04/03/21 06/26/21 History Isosorbide Mononitrate ER [Imdur] 30 mg PO HS 04/03/21 06/26/21 History Acetaminophen Tab [Tylenol] 650 mg PO Q6HR PRN #30 tab 04/09/21 06/26/21 Rx amLODIPine [Norvasc] 10 mg PO DAILY 30 Days #30 tab 04/15/21 06/26/21 Rx cloNIDine HCL [Catapres] 0.3 mg PO TID 30 Days #90 tab 04/15/21 06/26/21 Rx Escitalopram [Lexapro] 20 mg PO DAILY 04/17/21 06/26/21 History Irbesartan [Avapro] 75 mg PO DAILY 04/17/21 06/26/21 History hydrALAZINE HCL [Apresoline] 100 mg PO TID 04/17/21 06/26/21 History rOPINIRole HCL [Requip] 0.5 mg PO HS 04/17/21 06/26/21 History Insulin Glargine [Lantus Vial] 15 unit SQ DAILY #0 05/31/21 06/26/21 Rx Sevelamer [Renvela] 800 mg PO TID-W/MEALS 30 Days #90 05/31/21 06/26/21 Rx tab Pantoprazole Sodium [Protonix] 40 mg PO BID 30 Days #60 tab 06/04/21 06/26/21 Rx Glucagon Emergency Kit 1 mg IM ONCE PRN #1 kit 06/15/21 06/26/21 Rx Allergies Allergy/AdvReac Type Severity Reaction Status Date / Time Fish Containing Products Allergy Rash/Hives Verified 06/26/21 19:31 [Fish] iodine Allergy Anaphylaxis Verified 06/26/21 19:31 Physical Exam Vitals: Vital Signs Temp Pulse Pulse Resp BP BP BP 06/27/21 07:00 97.9 F 85 16 197/96 06/27/21 02:26 98.4 F 81 16 175/83 06/26/21 21:43 98.7 F 87 14 208/104 06/26/21 20:33 87 18 189/93 06/26/21 19:38 89 20 194/108 06/26/21 18:55 89 18 222/114 06/26/21 17:43 98.5 F 90 18 203/109 Pulse Ox 06/27/21 07:00 94 L 06/27/21 02:26 95 06/26/21 21:43 97 06/26/21 20:33 95 06/26/21 19:38 95 06/26/21 18:55 97 06/26/21 17:43 97 Intake and Output 06/26/21 06/27/21 06/27/21 22:59 06:59 14:59 Other: Voiding Method Toilet # Voids 0 0 Weight 45.359 kg PHYSICAL EXAMINATION: Patient is lying in the bed comfortably, no acute distress, awake alert and oriented.. HEENT: Normocephalic. Neck is supple. Pupils reactive. Legally blind. Nostrils clear. Oral cavity is moist. Neck reveals no JVD, carotid bruits, or thyromegaly. CHEST EXAMINATION: Trachea is central. Symmetrical expansion. No wheezing or rhonchi. Lung herr clear to auscultation and percussion. CARDIAC: Normal S1, S2 with no gallops. No murmurs ABDOMEN: Soft. Nontender. Bowel sounds present. No organomegaly. No abdominal bruits. Extremities: reveal no edema. No clubbing or cyanosis Neurologically awake, alert, oriented x3 with well-coordinated movements. No focal deficits noted Skin: No rash or skin lesions. Psychiatric: Coperative. Nonsuicidal Musculoskeletal: No joint swelling or deformity. Normal range of motion. Results CBC & Chem 7: 06/26/21 17:59 06/27/21 13:10 Labs: Abnormal Lab Results - Last 24 Hours (Table) 06/26/21 06/26/21 06/26/21 Range/Units 17:59 17:59 20:03 RBC 3.37 L (3.80-5.40) m/uL Hgb 10.8 L (11.4-16.0) gm/dL Hct 29.4 L (34.0-46.0) % Chloride 95 L (98-107) mmol/L Carbon Dioxide 35 H (22-30) mmol/L BUN 25 H (7-17) mg/dL Creatinine 4.24 H (0.52-1.04) mg/dL Glucose 301 H (74-99) mg/dL POC Glucose (mg/dL) (75-99) mg/dL Coronavirus (PCR) Detected A (Not Detectd) 06/26/21 06/27/21 06/27/21 Range/Units 22:07 08:02 08:03 RBC (3.80-5.40) m/uL Hgb (11.4-16.0) gm/dL Hct (34.0-46.0) % Chloride (98-107) mmol/L Carbon Dioxide (22-30) mmol/L BUN (7-17) mg/dL Creatinine (0.52-1.04) mg/dL Glucose (74-99) mg/dL POC Glucose (mg/dL) 300 H 590 H 576 H (75-99) mg/dL Coronavirus (PCR) (Not Detectd) Thrombosis Risk Factor Assmnt - DVT/VTE Prophylaxis DVT/VTE Prophylaxis: Pharmacologic Prophylaxis ordered Assessment and Plan Assessment: Hypertensive urgency Intractable nausea and vomiting unable to keep down food and medications. Possible gastroparesis Hyperglycemia with uncontrolled diabetes type 1 Acute COVID-19 infection Diabetic peripheral neuropathy Diabetic nephropathy and retinopathy. Patient is legally blind DVT prophylaxis with heparin subcu Plan: Patient will be continued on symptomatic management for nausea and vomiting and will be started back on home blood pressure medications including Norvasc, Coreg, clonidine, Lasix and hydralazine as well as Imdur and Cozaar. Nephrology was consulted and is scheduled for hemodialysis on Monday. Will be continued home medications. Due to elevated blood sugars to greater than 625 patient will be started on insulin drip and titrate down slowly. Patient will be started and follow closely. Prognosis is guarded at this time. Time with Patient: Greater than 30
[2021-06-28 02:14] LABS: Glucose,Whole Blood 340 mg/dL (75-99)
[2021-06-28 07:26] LABS: Glucose,Whole Blood 575 mg/dL (75-99)
[2021-06-28] MEDS ORDERED: INSULIN ASPART (NovoLOG) 100 UNIT/ML VIAL SQ ONE ×2 (08:16→11:36)
[2021-06-28] MEDS: INSULIN ASPART (NovoLOG) 100 UNIT/ML VIAL SQ SCH ×4 (08:19→21:16)
[2021-06-28] MEDS: ASPIRIN 81 MG PO SCH (08:25)
[2021-06-28] MEDS: carvediloL 12.5 MG TAB PO SCH ×2 (08:25→21:15)
[2021-06-28] MEDS: diphenhydrAMINE 50 MG/ML 1 ML VIAL IVP PRN ×2 (08:25→18:07)
[2021-06-28] MEDS: SEVELAMER 800 MG TAB PO SCH ×3 (08:26→18:04)
[2021-06-28] MEDS: hydrALAZINE HCL 50 MG TAB PO SCH ×3 (08:26→21:15)
[2021-06-28] MEDS: cloNIDine HCL 0.1 MG TAB PO SCH ×3 (08:26→21:14)
[2021-06-28] MEDS: PANTOPRAZOLE 40 MG TABLET PO SCH ×2 (08:26→21:15)
[2021-06-28] MEDS: LOSARTAN 25 MG TAB PO SCH (08:26)
[2021-06-28] MEDS: amLODIPine 10 MG TAB PO SCH (08:26)
[2021-06-28] MEDS: FUROSEMIDE 40 MG TAB PO SCH ×2 (08:26→21:15)
[2021-06-28] MEDS: INSULIN DETEMIR (LEVEMIR) 100 UNIT/ML SYR SQ SCH (09:16)
--- NOTE | 2021-06-28 10:11 | P.PN ---
Subjective Patient is seen in follow-up for end-stage renal disease. Blood sugars running high. Denies chest pain or shortness of breath. No vomiting or diarrhea. BP stable this AM. Vital signs are stable. General: The patient appeared well nourished and normally developed. HEENT: Head exam is unremarkable. LUNGS: Breath sounds decreased. HEART: Rate and Rhythm are regular. ABDOMEN: Soft, no distention. EXTREMITITES: No edema. Objective - Vital Signs Vital signs: Vital Signs Temp 98.4 F 06/28/21 07:00 Pulse 73 06/28/21 07:00 Resp 15 06/28/21 07:00 BP 156/79 06/28/21 07:00 Pulse Ox 91 L 06/28/21 07:00 Intake & Output 06/27/21 06/28/21 06/28/21 18:59 06:59 18:59 Intake Total 760 Balance 760 Intake: Intake, IV Titration 51 Amount Insulin Regular 100 unit 51 In Sodium Chloride 0.9% 100 ml @ Titrate IV .Q0M [facility] Rx#:[id number] Oral 709 Other: Voiding Method Toilet # Voids 0 1 - Labs CBC & Chem 7: 06/26/21 17:59 06/27/21 13:10 Labs: Abnormal Lab Results - Last 24 Hours (Table) 06/26/21 06/27/21 06/27/21 Range/Units 17:59 12:43 12:44 Sodium (137-145) mmol/L Chloride (98-107) mmol/L Carbon Dioxide (22-30) mmol/L BUN (7-17) mg/dL Creatinine (0.52-1.04) mg/dL Glucose (74-99) mg/dL POC Glucose (mg/dL) >600 H >600 H (75-99) mg/dL Hemoglobin A1c 9.4 H (0.0-6.0) % Calcium (8.4-10.2) mg/dL 06/27/21 06/27/21 06/27/21 Range/Units 13:10 15:16 15:51 Sodium 130 L (137-145) mmol/L Chloride 90 L (98-107) mmol/L Carbon Dioxide 32 H (22-30) mmol/L BUN 41 H (7-17) mg/dL Creatinine 6.11 H (0.52-1.04) mg/dL Glucose 624 H* (74-99) mg/dL POC Glucose (mg/dL) 595 H 495 H (75-99) mg/dL Hemoglobin A1c (0.0-6.0) % Calcium 8.3 L (8.4-10.2) mg/dL 06/27/21 06/27/21 06/27/21 Range/Units 16:23 16:57 19:05 Sodium (137-145) mmol/L Chloride (98-107) mmol/L Carbon Dioxide (22-30) mmol/L BUN (7-17) mg/dL Creatinine (0.52-1.04) mg/dL Glucose (74-99) mg/dL POC Glucose (mg/dL) 376 H 206 H 55 L (75-99) mg/dL Hemoglobin A1c (0.0-6.0) % Calcium (8.4-10.2) mg/dL 06/27/21 06/27/21 06/27/21 Range/Units 19:28 19:45 20:00 Sodium (137-145) mmol/L Chloride (98-107) mmol/L Carbon Dioxide (22-30) mmol/L BUN (7-17) mg/dL Creatinine (0.52-1.04) mg/dL Glucose (74-99) mg/dL POC Glucose (mg/dL) 47 L 46 L 69 L (75-99) mg/dL Hemoglobin A1c (0.0-6.0) % Calcium (8.4-10.2) mg/dL 06/28/21 06/28/21 Range/Units 02:12 07:24 Sodium (137-145) mmol/L Chloride (98-107) mmol/L Carbon Dioxide (22-30) mmol/L BUN (7-17) mg/dL Creatinine (0.52-1.04) mg/dL Glucose (74-99) mg/dL POC Glucose (mg/dL) 340 H 575 H (75-99) mg/dL Hemoglobin A1c (0.0-6.0) % Calcium (8.4-10.2) mg/dL Assessment and Plan Plan: Assessment: 1. End-stage renal disease maintained on hemodialysis on Monday schedule but currently on a Monday schedule due to COVID-19 infection. 2. COVID-19 infection. 3. Hypertension with chronic kidney disease. Better controlled this morning. Exacerbated by nausea and vomiting. 4. Diabetes mellitus. 5. Chronic kidney disease mineral bone disease. 6. Nausea and vomiting. Possibly from diabetic gastroparesis. Improved. Plan: Short treatment of hemodialysis today mostly for ultrafiltration. Another treatment tomorrow.
[2021-06-28 10:13] LABS: Basophils # (A) 0.03 X 10*3/uL (0.00-0.10); Basophils % (A) 0.6 %; Eosinophils # (A) 0.22 X 10*3/uL (0.04-0.35); Eosinophils % (A) 4.5 %; HGB 8.7 g/dL (12.0-15.0); Immature Grans, Automated 1.2 %; Lymphocytes # (A) 1.13 X 10*3/uL (0.90-5.00); MCH 29.7 pg (27.0-32.0); MCHC 33.5 g/dL (32.0-37.0); MCV 88.7 fL (80.0-97.0); Mean Platelet Volume 12.3 fL (9.5-12.2); Monocytes # (A) 0.31 X 10*3/uL (0.20-1.00); Monocytes % (A) 6.3 %; NRBC Per 100 WBC 0 /100 WBCS (0.0-0.0); Neutrophils # (A) 3.16 X 10*3/uL (1.80-7.70); Neutrophils % (A) 64.4 %; Platelet Count 174 X 10*3/uL (140-440); RBC 2.93 X 10*6/uL (4.10-5.20); RDW 13.3 % (11.5-14.5); WBC 4.91 X 10*3/uL (4.50-10.00)
[2021-06-28 10:36] LABS: Anion Gap 13.7 mmol/L (10.00-18.00); BUN/Creat Ratio 7.13 Ratio (12.00-20.00); Blood Urea Nitrogen 53.9 mg/dL (9.0-27.0); Calcium 8.2 mg/dL (8.7-10.3); Carbon Dioxide 24.5 mmol/L (20.0-27.5); Non-African American GFR(CKD) 6.5 (60.0-200.0)
[2021-06-28 10:40] LABS: African American GFR (CKD) 7.5 (60.0-200.0)
[2021-06-28 11:20] LABS: Glucose,Whole Blood 476 mg/dL (75-99)
[2021-06-28 13:44] VITALS: BMI 17.2
[2021-06-28 17:46] LABS: Glucose,Whole Blood 67 mg/dL (75-99)
[2021-06-28 20:31] LABS: Glucose,Whole Blood 107 mg/dL (75-99)
[2021-06-28] MEDS: HEPARIN SODIUM,PORCINE/PF 5,000 UNIT/0.5 ML SYRINGE SQ SCH (21:12)
[2021-06-28] MEDS: ISOSORBIDE MONONITRATE ER 30 MG TAB.ER.24H PO SCH (21:15)
[2021-06-29] MEDS: diphenhydrAMINE 50 MG/ML 1 ML VIAL IVP PRN ×3 (00:21→21:07)
--- NOTE | 2021-06-29 02:34 | P.PN ---
Subjective Progress Note Date: 06/28/21 Patient is a 30-year-old female with a known history of hypertension, ESRD on hemodialysis, diabetes type 1 and previous history of DKA, bilateral peripheral neuropathy of the legs, legally blind, restless leg syndrome, history of CVA/TIA and previous multiple admissions presents to ER due to complaints of nausea and hypertension. Patient has been having nausea and vomiting and unable to take her antihypertensive medications. Patient did have hemodialysis yesterday with complete treatment. Denied any complaints of chest pain. Mild shortness of breath. Patient was found to have elevated SBP is greater than 200 mmHg and was instructed to go to ER. Chest x-ray showed no acute cardiopulmonary process EKG showed normal sinus rhythm Patient blood pressure was 222/114 on admission and is currently saturating at 97% on room air. Laboratory data showed WBC 4.5 hemoglobin 10.8 and platelets 200 Sodium 137 potassium 3.8 chloride 95 bicarb is 35 BUN 25 and 25 and creatinine 4.24 and blood sugar 301 and A1c level is 9.4 Coronavirus PCR detected. 06/28/2021 Patient is seen and evaluated this morning in follow up and denies any shortness of breath. Patient is 100% on room air. Patient being followed by nephrology as she is ESRD and normally on // schedule although according to medical staff specialist, covid patients requiring dialysis are receiving it on // during hospitalization. Patient labs are abnormal and will be receiving a short ultrafilration round of dialysis today and treatment tomorrow. Blood pressure more controlled today and continue current regimen. Blood sugars remain elevated and will continue current insulin orders and cover as needed as patient is a poorly controlled brittle diabetic. Patient is off insulin drip. Labs: wbc is 4.91, hgb is 8.7, plts are 174, sodium is 124, potassium is 7.0, bun is 53.9, creat is 7.6, calcium is 8.2. Review of systems: Constitutional: reports of fatigue, no reports of fever, or chills Cardiovascular: No reports of chest pain or palpitations Respiratory: No reports of shortness of breath or cough GI: No reports of nausea, vomiting, or diarrhea : No reports of dysuria or retention Neurovascular: No reports of weakness or numbness All medications have been reviewed Active Medications Acetaminophen (Acetaminophen Tab 325 Mg Tab) 650 mg PO Q6HR PRN PRN Reason: Fever and/ or Pain Amlodipine Besylate (Amlodipine 10 Mg Tab) 10 mg PO DAILY [facility] Last Admin: 06/28/21 08:26 Dose: 10 mg Documented by: Aspirin (Aspirin 81 Mg) 81 mg PO DAILY [facility] Last Admin: 06/28/21 08:25 Dose: 81 mg Documented by: Carvedilol (Carvedilol 12.5 Mg Tab) 25 mg PO BID [facility] Last Admin: 06/28/21 08:25 Dose: 25 mg Documented by: Clonidine (Clonidine Hcl 0.1 Mg Tab) 0.3 mg PO TID [facility] Last Admin: 06/28/21 08:26 Dose: 0.3 mg Documented by: Diphenhydramine HCl (Diphenhydramine 50 Mg/Ml 1 Ml Vial) 25 mg IVP Q6HR PRN PRN Reason: Allergy Symptoms Last Admin: 06/28/21 08:25 Dose: 25 mg Documented by: Ergocalciferol (Ergocalciferol 1,250 Mcg (50,000 Iu) Capsule) 1,250 mcg PO [place] [facility] Last Admin: 06/27/21 21:26 Dose: 1,250 mcg Documented by: Furosemide (Furosemide 40 Mg Tab) 40 mg PO BID [facility] Last Admin: 06/28/21 08:26 Dose: 40 mg Documented by: Heparin Sodium (Porcine) (Heparin Sodium,Porcine/Pf 5,000 Unit/0.5 Ml Syringe) 5,000 unit SQ Q12HR [facility] Hydralazine HCl (Hydralazine Hcl 20 Mg/Ml 1 Ml Vial) 10 mg IVP Q6HR PRN PRN Reason: Blood Pressure - High Hydralazine HCl (Hydralazine Hcl 50 Mg Tab) 100 mg PO TID [facility] Last Admin: 06/28/21 08:26 Dose: 100 mg Documented by: Hydromorphone HCl (Hydromorphone 0.5 Mg/0.5 Ml Syringe) 0.5 mg IVP Q3HR PRN PRN Reason: Moderate Pain Insulin Human Regular 100 unit (/ Sodium Chloride) 101 mls @ 0 mls/hr IV .Q0M [facility]; Protocol Last Titration: 06/27/21 17:03 Dose: 3 ml/hr, 3 mls/hr Documented by: Insulin Aspart (Insulin Aspart (Novolog) 100 Unit/Ml Vial) 0 unit SQ ACHS [facility]; Protocol Last Admin: 06/28/21 11:43 Dose: Not Given Documented by: Insulin Detemir (Insulin Detemir (Levemir) 100 Unit/Ml Syr) 15 unit SQ DAILY@0700 [facility] Last Admin: 06/28/21 09:16 Dose: 15 unit Documented by: Isosorbide Mononitrate (Isosorbide Mononitrate Er 30 Mg Tab.Er.24h) 30 mg PO [facility] Last Admin: 06/27/21 21:27 Dose: 30 mg Documented by: Losartan Potassium (Losartan 25 Mg Tab) 75 mg PO DAILY [facility] Last Admin: 06/28/21 08:26 Dose: 75 mg Documented by: Metoclopramide HCl (Metoclopramide 5 Mg/Ml 2 Ml Vial) 5 mg IVP Q6HR PRN PRN Reason: Nausea And Vomiting Naloxone HCl (Naloxone 0.4 Mg/Ml 1 Ml Vial) 0.2 mg IV Q2M PRN PRN Reason: Opioid Reversal Ondansetron HCl (Ondansetron 4 Mg/2 Ml Vial) 4 mg IVP Q8HR PRN PRN Reason: Nausea And Vomiting Pantoprazole Sodium (Pantoprazole 40 Mg Tablet) 40 mg PO BID [facility] Last Admin: 06/28/21 08:26 Dose: 40 mg Documented by: Ropinirole HCl (Ropinirole Hcl 1 Mg Tab) 0.5 mg PO [facility] Last Admin: 06/27/21 21:27 Dose: 0.5 mg Documented by: Sevelamer Carbonate (Sevelamer 800 Mg Tab) 800 mg PO TID-W/MEALS [facility] Last Admin: 06/28/21 08:26 Dose: 800 mg Documented by: Physical exam: Patient is lying in the bed comfortably, no acute distress, awake alert and oriented.. HEENT: Normocephalic. Neck is supple. Pupils reactive. Legally blind. Nostrils clear. Oral cavity is moist. Neck reveals no JVD, carotid bruits, or thyromegaly. CHEST EXAMINATION: Trachea is central. Symmetrical expansion. No wheezing or rhonchi. Lung herr clear to auscultation and percussion. CARDIAC: Normal S1, S2 with no gallops. No murmurs ABDOMEN: Soft. Nontender. Bowel sounds present. No organomegaly. No abdominal bruits. Extremities: reveal no edema. No clubbing or cyanosis Neurologically awake, alert, oriented x3 with well-coordinated movements. No focal deficits noted Skin: No rash or skin lesions. itchiness noted of the left flank on exam with no redness or hives or irritation noted Psychiatric: Cooperative. Non-suicidal Musculoskeletal: No joint swelling or deformity. Normal range of motion. Assessment: Hypertensive urgency ESRD Intractable nausea and vomiting unable to keep down food and medications, improving Possible gastroparesis Hyperglycemia with uncontrolled diabetes type 1 Acute COVID-19 infection Diabetic peripheral neuropathy Diabetic nephropathy and retinopathy. Patient is legally blind DVT prophylaxis with heparin subcu Full code Plan: Patient will be continued on symptomatic management for nausea and vomiting and has improved and tolerating diet today. Home blood pressure medications including Norvasc, Coreg, clonidine, Lasix and hydralazine as well as Imdur and Cozaar have been resumed. Nephrology following and needs dialysis and will be receiving a short ultrafiltration today and dialysis tomorrow as covid patients are being maintained on //mon schedule blood sugars continue to be elevated and insulin drip discontinued as patient dropped drastically and did not tolerate. Continue current regiment and monitor closely. Encouraged increased activity as tolerated. Given the severity of hypertension and elevated blood sugars, patient requires more than 2 night hospitalization. Patient will be started and follow closely. Prognosis is guarded at this time. Objective - Vital Signs Vital signs: Vital Signs Temp 98.4 F 06/28/21 07:00 Pulse 73 06/28/21 07:00 Resp 15 06/28/21 07:00 BP 156/79 06/28/21 07:00 Pulse Ox 91 L 06/28/21 07:00 Intake & Output 06/27/21 06/28/21 06/28/21 18:59 06:59 18:59 Intake Total 760 Balance 760 Intake: Intake, IV Titration 51 Amount Insulin Regular 100 unit 51 In Sodium Chloride 0.9% 100 ml @ Titrate IV .Q0M [facility] Rx#:[id number] Oral 709 Other: Voiding Method Toilet # Voids 0 1 - Labs CBC & Chem 7: 06/28/21 07:45 06/28/21 07:45 Labs: Abnormal Lab Results - Last 24 Hours (Table) 06/26/21 06/27/21 06/27/21 Range/Units 17:59 12:43 12:44 Sodium (137-145) mmol/L Chloride (98-107) mmol/L Carbon Dioxide (22-30) mmol/L BUN (7-17) mg/dL Creatinine (0.52-1.04) mg/dL Glucose (74-99) mg/dL POC Glucose (mg/dL) >600 H >600 H (75-99) mg/dL Hemoglobin A1c 9.4 H (0.0-6.0) % Calcium (8.4-10.2) mg/dL 06/27/21 06/27/21 06/27/21 Range/Units 13:10 15:16 15:51 Sodium 130 L (137-145) mmol/L Chloride 90 L (98-107) mmol/L Carbon Dioxide 32 H (22-30) mmol/L BUN 41 H (7-17) mg/dL Creatinine 6.11 H (0.52-1.04) mg/dL Glucose 624 H* (74-99) mg/dL POC Glucose (mg/dL) 595 H 495 H (75-99) mg/dL Hemoglobin A1c (0.0-6.0) % Calcium 8.3 L (8.4-10.2) mg/dL 06/27/21 06/27/21 06/27/21 Range/Units 16:23 16:57 19:05 Sodium (137-145) mmol/L Chloride (98-107) mmol/L Carbon Dioxide (22-30) mmol/L BUN (7-17) mg/dL Creatinine (0.52-1.04) mg/dL Glucose (74-99) mg/dL POC Glucose (mg/dL) 376 H 206 H 55 L (75-99) mg/dL Hemoglobin A1c (0.0-6.0) % Calcium (8.4-10.2) mg/dL 06/27/21 06/27/21 06/27/21 Range/Units 19:28 19:45 20:00 Sodium (137-145) mmol/L Chloride (98-107) mmol/L Carbon Dioxide (22-30) mmol/L BUN (7-17) mg/dL Creatinine (0.52-1.04) mg/dL Glucose (74-99) mg/dL POC Glucose (mg/dL) 47 L 46 L 69 L (75-99) mg/dL Hemoglobin A1c (0.0-6.0) % Calcium (8.4-10.2) mg/dL 06/28/21 06/28/21 Range/Units 02:12 07:24 Sodium (137-145) mmol/L Chloride (98-107) mmol/L Carbon Dioxide (22-30) mmol/L BUN (7-17) mg/dL Creatinine (0.52-1.04) mg/dL Glucose (74-99) mg/dL POC Glucose (mg/dL) 340 H 575 H (75-99) mg/dL Hemoglobin A1c (0.0-6.0) % Calcium (8.4-10.2) mg/dL
[2021-06-29 07:55] LABS: Glucose,Whole Blood 481 mg/dL (75-99)
[2021-06-29] MEDS: carvediloL 12.5 MG TAB PO SCH ×2 (08:24→21:03)
[2021-06-29] MEDS: LOSARTAN 25 MG TAB PO SCH (08:24)
[2021-06-29] MEDS: PANTOPRAZOLE 40 MG TABLET PO SCH ×2 (08:24→21:03)
[2021-06-29] MEDS: INSULIN ASPART (NovoLOG) 100 UNIT/ML VIAL SQ SCH ×4 (08:25→21:06)
[2021-06-29] MEDS: amLODIPine 10 MG TAB PO SCH (08:25)
[2021-06-29] MEDS: ASPIRIN 81 MG PO SCH (08:25)
[2021-06-29] MEDS: FUROSEMIDE 40 MG TAB PO SCH ×2 (08:25→21:03)
[2021-06-29] MEDS: INSULIN DETEMIR (LEVEMIR) 100 UNIT/ML SYR SQ SCH ×2 (08:25→09:34)
[2021-06-29] MEDS: hydrALAZINE HCL 50 MG TAB PO SCH ×3 (08:26→21:05)
[2021-06-29] MEDS: cloNIDine HCL 0.1 MG TAB PO SCH ×3 (08:26→21:03)
[2021-06-29] MEDS: HEPARIN SODIUM,PORCINE/PF 5,000 UNIT/0.5 ML SYRINGE SQ SCH ×2 (08:26→21:05)
[2021-06-29] MEDS: SEVELAMER 800 MG TAB PO SCH ×3 (08:27→18:19)
--- NOTE | 2021-06-29 10:17 | P.PN ---
Subjective Patient is seen in follow-up for end-stage renal disease. Potassium was 7.0 yesterday. She did undergo hemodialysis. Labs from today are pending. Blood sugars have been very labile. This morning her blood sugar was 481. Denies chest pain or shortness of breath. Blood pressure stable. Vital signs are stable. General: The patient appeared well nourished and normally developed. HEENT: Head exam is unremarkable. LUNGS: Breath sounds decreased. HEART: Rate and Rhythm are regular. ABDOMEN: Soft, no distention. EXTREMITITES: No edema. Objective - Vital Signs Vital signs: Vital Signs Temp 97.9 F 06/29/21 07:00 Pulse 76 06/29/21 07:00 Resp 16 06/29/21 07:00 BP 166/84 06/29/21 07:00 Pulse Ox 93 L 06/29/21 07:00 Intake & Output 06/28/21 06/29/21 06/29/21 18:59 06:59 18:59 Intake Total 418 600 Output Total 2800 Balance -2382 600 Weight 45.359 kg Intake: Oral 118 600 Hemodialysis 300 Output: Hemodialysis 2800 Other: Voiding Method Toilet # Voids 0 - Labs CBC & Chem 7: 06/28/21 07:45 06/28/21 07:45 Labs: Abnormal Lab Results - Last 24 Hours (Table) 06/28/21 06/28/21 06/28/21 Range/Units 07:45 11:19 17:35 Sodium 124 L (135-145) mmol/L Potassium 7.0 H* (3.5-5.5) mmol/L Chloride 86 L (96-109) mmol/L BUN 53.9 H (9.0-27.0) mg/dL Creatinine 7.6 H* (0.6-1.5) mg/dL Est GFR (CKD-EPI)AfAm 7.5 L (60.0-200.0) Est GFR (CKD-EPI)NonAf 6.5 L (60.0-200.0) BUN/Creatinine Ratio 7.13 L (12.00-20.00) Ratio Glucose 643 H* (70-110) mg/dL POC Glucose (mg/dL) 476 H 67 L (75-99) mg/dL Calcium 8.2 L (8.7-10.3) mg/dL 06/28/21 06/29/21 Range/Units 20:29 07:53 Sodium (135-145) mmol/L Potassium (3.5-5.5) mmol/L Chloride (96-109) mmol/L BUN (9.0-27.0) mg/dL Creatinine (0.6-1.5) mg/dL Est GFR (CKD-EPI)AfAm (60.0-200.0) Est GFR (CKD-EPI)NonAf (60.0-200.0) BUN/Creatinine Ratio (12.00-20.00) Ratio Glucose (70-110) mg/dL POC Glucose (mg/dL) 107 H 481 H (75-99) mg/dL Calcium (8.7-10.3) mg/dL Assessment and Plan Plan: Assessment: 1. End-stage renal disease maintained on hemodialysis on Monday riday schedule but currently on a Monday schedule due to COVID-19 infection. 2. COVID-19 infection. 3. Hypertension with chronic kidney disease. Exacerbated by nausea and vomiting . 4. Diabetes mellitus. 5. 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 6. Nausea and vomiting. Possibly from diabetic gastroparesis. Improved. 7. Hyperkalemia secondary to chronic kidney disease and hyperglycemia. 8. Hypertonic hyponatremia secondary to hyperglycemia. Plan: Hemodialysis today. Follow-up morning labs. Blood sugar control. Hold losartan for now.
[2021-06-29 12:28] LABS: Glucose,Whole Blood 117 mg/dL (75-99)
[2021-06-29 13:42] LABS: African American GFR (CKD) 6 (>60 ml/min/1.73 sqM); Anion Gap 15 mmol/L; Blood Urea Nitrogen 75 mg/dL (7-17); Calcium 8.2 mg/dL (8.4-10.2); Carbon Dioxide 19 mmol/L (22-30); Chloride 93 mmol/L (98-107); Non-African American GFR(CKD) 5 (>60 ml/min/1.73 sqM); Sodium 127 mmol/L (137-145)
[2021-06-29 13:56] LABS: Glucose 589 mg/dL (74-99); Potassium 6.8 mmol/L (3.5-5.1)
[2021-06-29 16:04] LABS: African American GFR (CKD) 18 (>60 ml/min/1.73 sqM); Anion Gap 7 mmol/L; Blood Urea Nitrogen 24 mg/dL (7-17); Calcium 8.7 mg/dL (8.4-10.2); Carbon Dioxide 30 mmol/L (22-30); Chloride 97 mmol/L (98-107); Glucose 189 mg/dL (74-99); Non-African American GFR(CKD) 16 (>60 ml/min/1.73 sqM); Potassium 4.5 mmol/L (3.5-5.1); Sodium 134 mmol/L (137-145)
[2021-06-29 17:15] LABS: Glucose,Whole Blood 238 mg/dL (75-99)
[2021-06-29 20:01] LABS: Glucose,Whole Blood 254 mg/dL (75-99)
[2021-06-29] MEDS: ISOSORBIDE MONONITRATE ER 30 MG TAB.ER.24H PO SCH (21:03)
[2021-06-29 23:30] LABS: Glucose,Whole Blood 113 mg/dL (75-99)
--- NOTE | 2021-06-30 01:20 | P.PN ---
Subjective Progress Note Date: 06/29/21 Patient is a 30-year-old female with a known history of hypertension, ESRD on hemodialysis, diabetes type 1 and previous history of DKA, bilateral peripheral neuropathy of the legs, legally blind, restless leg syndrome, history of CVA/TIA and previous multiple admissions presents to ER due to complaints of nausea and hypertension. Patient has been having nausea and vomiting and unable to take her antihypertensive medications. Patient did have hemodialysis yesterday with complete treatment. Denied any complaints of chest pain. Mild shortness of breath. Patient was found to have elevated SBP is greater than 200 mmHg and was instructed to go to ER. Chest x-ray showed no acute cardiopulmonary process EKG showed normal sinus rhythm Patient blood pressure was 222/114 on admission and is currently saturating at 97% on room air. Laboratory data showed WBC 4.5 hemoglobin 10.8 and platelets 200 Sodium 137 potassium 3.8 chloride 95 bicarb is 35 BUN 25 and 25 and creatinine 4.24 and blood sugar 301 and A1c level is 9.4 Coronavirus PCR detected. 06/28/2021 Patient is seen and evaluated this morning in follow up and denies any shortness of breath. Patient is 100% on room air. Patient being followed by nephrology as she is ESRD and normally on // schedule although according to staffing clerk, covid patients requiring dialysis are receiving it on // during hospitalization. Patient labs are abnormal and will be receiving a short ultrafilration round of dialysis today and treatment tomorrow. Blood pressure more controlled today and continue current regimen. Blood sugars remain elevated and will continue current insulin orders and cover as needed as patient is a poorly controlled brittle diabetic. Patient is off insulin drip. 06/29/2021 Patient is seen and evaluated this morning and states that her blood sugars continue to be elevated and patient is receiving dialysis currently. Patient normally receives 15 units of long acting daily and had this yesterday and sliding scale and blood sugar dropped to 60's. Will give 7 units of long acting and continue sliding scale and monitor closely. Patient labs were drawn by dialysis and sitting on the counter for some time and possibly hemolyzed as labs were abnormal but more so than normal. Will reorder BMP and await results. Blood pressure more controlled. Nephrology following Labs: sodium is 127, potassium is 6.8, bun is 75, creat is 9.22, calcium is 8.2. Review of systems: Constitutional: reports of fatigue, no reports of fever, or chills Cardiovascular: No reports of chest pain or palpitations Respiratory: No reports of shortness of breath or cough GI: No reports of nausea, vomiting, or diarrhea : No reports of dysuria or retention Neurovascular: No reports of weakness or numbness All medications have been reviewed Active Medications Acetaminophen (Acetaminophen Tab 325 Mg Tab) 650 mg PO Q6HR PRN PRN Reason: Fever and/ or Pain Amlodipine Besylate (Amlodipine 10 Mg Tab) 10 mg PO DAILY [facility] Last Admin: 06/29/21 08:25 Dose: 10 mg Documented by: Aspirin (Aspirin 81 Mg) 81 mg PO DAILY [facility] Last Admin: 06/29/21 08:25 Dose: 81 mg Documented by: Carvedilol (Carvedilol 12.5 Mg Tab) 25 mg PO BID [facility] Last Admin: 06/29/21 21:03 Dose: 25 mg Documented by: Clonidine (Clonidine Hcl 0.1 Mg Tab) 0.3 mg PO TID [facility] Last Admin: 06/29/21 21:03 Dose: 0.3 mg Documented by: Diphenhydramine HCl (Diphenhydramine 50 Mg/Ml 1 Ml Vial) 25 mg IVP Q6HR PRN PRN Reason: Allergy Symptoms Last Admin: 06/29/21 21:07 Dose: 25 mg Documented by: Ergocalciferol (Ergocalciferol 1,250 Mcg (50,000 Iu) Capsule) 1,250 mcg PO [facility] Last Admin: 06/27/21 21:26 Dose: 1,250 mcg Documented by: Furosemide (Furosemide 40 Mg Tab) 40 mg PO BID [facility] Last Admin: 06/29/21 21:03 Dose: 40 mg Documented by: Heparin Sodium (Porcine) (Heparin Sodium,Porcine/Pf 5,000 Unit/0.5 Ml Syringe) 5,000 unit SQ Q12HR [facility] Last Admin: 06/29/21 21:05 Dose: 5,000 unit Documented by: Hydralazine HCl (Hydralazine Hcl 20 Mg/Ml 1 Ml Vial) 10 mg IVP Q6HR PRN PRN Reason: Blood Pressure - High Hydralazine HCl (Hydralazine Hcl 50 Mg Tab) 100 mg PO TID [facility] Last Admin: 06/29/21 21:05 Dose: 100 mg Documented by: Hydromorphone HCl (Hydromorphone 0.5 Mg/0.5 Ml Syringe) 0.5 mg IVP Q3HR PRN PRN Reason: Moderate Pain Insulin Human Regular 100 unit (/ Sodium Chloride) 101 mls @ 0 mls/hr IV .Q0M [facility]; Protocol Last Titration: 06/27/21 17:03 Dose: 3 ml/hr, 3 mls/hr Documented by: Insulin Aspart (Insulin Aspart (Novolog) 100 Unit/Ml Vial) 0 unit SQ ACHS [facility]; Protocol Last Admin: 06/29/21 21:06 Dose: 4 unit Documented by: Insulin Detemir (Insulin Detemir (Levemir) 100 Unit/Ml Syr) 7 unit SQ DAILY@0700 [facility] Last Admin: 06/29/21 08:25 Dose: 7 unit Documented by: Isosorbide Mononitrate (Isosorbide Mononitrate Er 30 Mg Tab.Er.24h) 30 mg PO [facility] Last Admin: 06/29/21 21:03 Dose: 30 mg Documented by: Metoclopramide HCl (Metoclopramide 5 Mg/Ml 2 Ml Vial) 5 mg IVP Q6HR PRN PRN Reason: Nausea And Vomiting Naloxone HCl (Naloxone 0.4 Mg/Ml 1 Ml Vial) 0.2 mg IV Q2M PRN PRN Reason: Opioid Reversal Ondansetron HCl (Ondansetron 4 Mg/2 Ml Vial) 4 mg IVP Q8HR PRN PRN Reason: Nausea And Vomiting Pantoprazole Sodium (Pantoprazole 40 Mg Tablet) 40 mg PO BID [facility] Last Admin: 06/29/21 21:03 Dose: 40 mg Documented by: Ropinirole HCl (Ropinirole Hcl 1 Mg Tab) 0.5 mg PO [facility] Last Admin: 06/29/21 21:04 Dose: 0.5 mg Documented by: Sevelamer Carbonate (Sevelamer 800 Mg Tab) 800 mg PO TID-W/MEALS [facility] Last Admin: 06/29/21 18:19 Dose: 800 mg Documented by: Physical exam: Patient is lying in the bed comfortably, no acute distress, sleeping, but easily arousable alert and oriented.. HEENT: Normocephalic. Neck is supple. Pupils reactive. Legally blind. Nostrils clear. Oral cavity is moist. Neck reveals no JVD, carotid bruits, or thyromegaly. CHEST EXAMINATION: Trachea is central. Symmetrical expansion. No wheezing or rhonchi. Lung herr clear to auscultation and percussion. CARDIAC: Normal S1, S2 with no gallops. No murmurs ABDOMEN: Soft. Nontender. Bowel sounds present. No organomegaly. No abdominal bruits. Extremities: reveal no edema. No clubbing or cyanosis Neurologically awake, alert, oriented x3 with well-coordinated movements. No focal deficits noted Skin: No rash or skin lesions. Psychiatric: Cooperative. Non-suicidal Musculoskeletal: No joint swelling or deformity. Normal range of motion. Assessment: Hypertensive urgency ESRD Intractable nausea and vomiting unable to keep down food and medications, improving Possible gastroparesis Hyperglycemia with uncontrolled diabetes type 1 Acute COVID-19 infection Diabetic peripheral neuropathy Diabetic nephropathy and retinopathy. Patient is legally blind DVT prophylaxis with heparin subcu Full code Plan: Patient will be continued on symptomatic management for nausea and vomiting and has improved and tolerating diet again today. Patient positive for covid 19 and continues to have no respiratory distress. Labs drawn today were apparently drawn during dialysis and appeared to be hemolyzed and off compared to yesterday and repeat labs were much better and show sodium of 134, potassium is 4.5, bun is 24, cr is 3.63, blood glucose was 189, calcium is 8.7 Home blood pressure medications including Norvasc, Coreg, clonidine, Lasix and hydralazine as well as Imdur and Cozaar have been resumed. Cozaar discontinued. Nephrology following and is receiving hemodialysis currently. covid patients are being maintained on /mon schedule blood sugars continue to be elevated and Continue current regiment and monitor closely. Encouraged increased activity as tolerated. Prognosis is guarded at this time. Possible discharge in 24-48 hours. Objective - Vital Signs Vital signs: Vital Signs Temp 97.9 F 06/29/21 07:00 Pulse 76 06/29/21 07:00 Resp 16 06/29/21 07:00 BP 166/84 06/29/21 07:00 Pulse Ox 93 L 06/29/21 07:00 Intake & Output 06/28/21 06/29/21 06/29/21 18:59 06:59 18:59 Intake Total 418 600 Output Total 2800 Balance -2382 600 Weight 45.359 kg Intake: Oral 118 600 Hemodialysis 300 Output: Hemodialysis 2800 Other: Voiding Method Toilet # Voids 0 - Labs CBC & Chem 7: 06/28/21 07:45 06/29/21 15:14 Labs: Abnormal Lab Results - Last 24 Hours (Table) 06/28/21 06/28/21 06/28/21 Range/Units 07:45 07:45 11:19 RBC 2.93 L (4.10-5.20) X 10*6/uL Hgb 8.7 L (12.0-15.0) g/dL Hct 26.0 L (37.2-46.3) % MPV 12.3 H (9.5-12.2) fL Immature Gran # 0.06 H (0.00-0.04) X 10*3/uL Sodium 124 L (135-145) mmol/L Potassium 7.0 H* (3.5-5.5) mmol/L Chloride 86 L (96-109) mmol/L BUN 53.9 H (9.0-27.0) mg/dL Creatinine 7.6 H* (0.6-1.5) mg/dL Est GFR (CKD-EPI)AfAm 7.5 L (60.0-200.0) Est GFR (CKD-EPI)NonAf 6.5 L (60.0-200.0) BUN/Creatinine Ratio 7.13 L (12.00-20.00) Ratio Glucose 643 H* (70-110) mg/dL POC Glucose (mg/dL) 476 H (75-99) mg/dL Calcium 8.2 L (8.7-10.3) mg/dL 06/28/21 06/28/21 06/29/21 Range/Units 17:35 20:29 07:53 RBC (4.10-5.20) X 10*6/uL Hgb (12.0-15.0) g/dL Hct (37.2-46.3) % MPV (9.5-12.2) fL Immature Gran # (0.00-0.04) X 10*3/uL Sodium (135-145) mmol/L Potassium (3.5-5.5) mmol/L Chloride (96-109) mmol/L BUN (9.0-27.0) mg/dL Creatinine (0.6-1.5) mg/dL Est GFR (CKD-EPI)AfAm (60.0-200.0) Est GFR (CKD-EPI)NonAf (60.0-200.0) BUN/Creatinine Ratio (12.00-20.00) Ratio Glucose (70-110) mg/dL POC Glucose (mg/dL) 67 L 107 H 481 H (75-99) mg/dL Calcium (8.7-10.3) mg/dL
[2021-06-30] MEDS: diphenhydrAMINE 50 MG/ML 1 ML VIAL IVP PRN ×2 (04:09→17:46)
[2021-06-30 06:54] LABS: Glucose,Whole Blood 455 mg/dL (75-99)
[2021-06-30] MEDS: INSULIN ASPART (NovoLOG) 100 UNIT/ML VIAL SQ SCH ×4 (08:20→22:20)
[2021-06-30] MEDS: INSULIN DETEMIR (LEVEMIR) 100 UNIT/ML SYR SQ SCH (08:20)
[2021-06-30] MEDS: HEPARIN SODIUM,PORCINE/PF 5,000 UNIT/0.5 ML SYRINGE SQ SCH ×2 (08:22→22:20)
[2021-06-30] MEDS: cloNIDine HCL 0.1 MG TAB PO SCH ×3 (08:23→22:21)
[2021-06-30] MEDS: hydrALAZINE HCL 50 MG TAB PO SCH ×3 (08:23→22:59)
[2021-06-30] MEDS: ASPIRIN 81 MG PO SCH (08:24)
[2021-06-30] MEDS: carvediloL 12.5 MG TAB PO SCH ×2 (08:24→22:19)
[2021-06-30] MEDS: SEVELAMER 800 MG TAB PO SCH ×3 (08:24→17:41)
[2021-06-30] MEDS: amLODIPine 10 MG TAB PO SCH (08:24)
[2021-06-30] MEDS: FUROSEMIDE 40 MG TAB PO SCH ×2 (08:24→22:19)
[2021-06-30] MEDS: PANTOPRAZOLE 40 MG TABLET PO SCH ×2 (08:24→22:20)
[2021-06-30 12:07] LABS: Glucose,Whole Blood 253 mg/dL (75-99)
--- NOTE | 2021-06-30 12:26 | P.PN ---
Subjective Patient is seen in follow-up for end-stage renal disease. Resting in bed. Complains of dry heaving and nausea. Tolerated dialysis yesterday with 3 L of hydration. Blood pressure on the higher side. Vital signs are stable. General: The patient appeared well nourished and normally developed. HEENT: Head exam is unremarkable. LUNGS: Breath sounds decreased. HEART: Rate and Rhythm are regular. ABDOMEN: Soft, no distention. EXTREMITITES: No edema. Objective - Vital Signs Vital signs: Vital Signs Temp 98.9 F 06/30/21 07:00 Pulse 76 06/30/21 07:00 Resp 16 06/30/21 07:00 BP 190/90 06/30/21 07:00 Pulse Ox 98 06/30/21 07:00 Intake & Output 06/29/21 06/30/21 06/30/21 18:59 06:59 18:59 Intake Total 618 Output Total 3000 Balance -2382 Intake: Oral 118 Hemodialysis 500 Output: Hemodialysis 3000 Other: Voiding Method Toilet # Voids 1 - Labs CBC & Chem 7: 06/28/21 07:45 06/29/21 15:14 Labs: Abnormal Lab Results - Last 24 Hours (Table) 06/29/21 06/29/21 06/29/21 Range/Units 12:27 13:25 15:14 Sodium 127 L 134 L (137-145) mmol/L Potassium 6.8 H* (3.5-5.1) mmol/L Chloride 93 L 97 L (98-107) mmol/L Carbon Dioxide 19 L (22-30) mmol/L BUN 75 H 24 H (7-17) mg/dL Creatinine 9.22 H* 3.63 H (0.52-1.04) mg/dL Glucose 589 H* 189 H (74-99) mg/dL POC Glucose (mg/dL) 117 H (75-99) mg/dL Calcium 8.2 L (8.4-10.2) mg/dL 06/29/21 06/29/21 06/29/21 Range/Units 17:13 20:00 23:29 Sodium (137-145) mmol/L Potassium (3.5-5.1) mmol/L Chloride (98-107) mmol/L Carbon Dioxide (22-30) mmol/L BUN (7-17) mg/dL Creatinine (0.52-1.04) mg/dL Glucose (74-99) mg/dL POC Glucose (mg/dL) 238 H 254 H 113 H (75-99) mg/dL Calcium (8.4-10.2) mg/dL 06/30/21 06/30/21 Range/Units 06:52 12:04 Sodium (137-145) mmol/L Potassium (3.5-5.1) mmol/L Chloride (98-107) mmol/L Carbon Dioxide (22-30) mmol/L BUN (7-17) mg/dL Creatinine (0.52-1.04) mg/dL Glucose (74-99) mg/dL POC Glucose (mg/dL) 455 H 253 H (75-99) mg/dL Calcium (8.4-10.2) mg/dL Assessment and Plan Plan: Assessment: 1. End-stage renal disease maintained on hemodialysis on Monday schedule but currently on a Monday schedule due to COVID-19 infection. 2. COVID-19 infection. 3. Hypertension with chronic kidney disease. Exacerbated by nausea and vomiting. 4. Diabetes mellitus. 5. 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 6. Nausea and vomiting. Possibly from diabetic gastroparesis. 7. Hyperkalemia secondary to chronic kidney disease and hyperglycemia. Repeat potassium level IV.5 as of yesterday afternoon. 8. Hypertonic hyponatremia secondary to hyperglycemia. Improved. Plan: Hemodialysis tomorrow. Resume losartan but at a lower dose.
[2021-06-30] MEDS: LOSARTAN 50 MG TAB PO SCH (12:57)
[2021-06-30 17:01] LABS: Glucose,Whole Blood 74 mg/dL (75-99)
[2021-06-30 20:50] LABS: Glucose,Whole Blood 211 mg/dL (75-99)
[2021-06-30] MEDS: ISOSORBIDE MONONITRATE ER 30 MG TAB.ER.24H PO SCH (22:20)
[2021-06-30] MEDS: METOCLOPRAMIDE 5 MG/ML 2 ML VIAL IVP PRN (22:25)
--- NOTE | 2021-07-01 00:21 | P.PN ---
Subjective Progress Note Date: 06/30/21 Patient is a 30-year-old female with a known history of hypertension, ESRD on hemodialysis, diabetes type 1 and previous history of DKA, bilateral peripheral neuropathy of the legs, legally blind, restless leg syndrome, history of CVA/TIA and previous multiple admissions presents to ER due to complaints of nausea and hypertension. Patient has been having nausea and vomiting and unable to take her antihypertensive medications. Patient did have hemodialysis yesterday with complete treatment. Denied any complaints of chest pain. Mild shortness of breath. Patient was found to have elevated SBP is greater than 200 mmHg and was instructed to go to ER. Chest x-ray showed no acute cardiopulmonary process EKG showed normal sinus rhythm Patient blood pressure was 222/114 on admission and is currently saturating at 97% on room air. Laboratory data showed WBC 4.5 hemoglobin 10.8 and platelets 200 Sodium 137 potassium 3.8 chloride 95 bicarb is 35 BUN 25 and 25 and creatinine 4.24 and blood sugar 301 and A1c level is 9.4 Coronavirus PCR detected. 06/28/2021 Patient is seen and evaluated this morning in follow up and denies any shortness of breath. Patient is 100% on room air. Patient being followed by nephrology as she is ESRD and normally on // schedule although according to staff mine warfare officer, covid patients requiring dialysis are receiving it on // during hospitalization. Patient labs are abnormal and will be receiving a short ultrafilration round of dialysis today and treatment tomorrow. Blood pressure more controlled today and continue current regimen. Blood sugars remain elevated and will continue current insulin orders and cover as needed as patient is a poorly controlled brittle diabetic. Patient is off insulin drip. 06/29/2021 Patient is seen and evaluated this morning and states that her blood sugars continue to be elevated and patient is receiving dialysis currently. Patient normally receives 15 units of long acting daily and had this yesterday and sliding scale and blood sugar dropped to 60's. Will give 7 units of long acting and continue sliding scale and monitor closely. Patient labs were drawn by dialysis and sitting on the counter for some time and possibly hemolyzed as labs were abnormal but more so than normal. Will reorder BMP and await results. Blood pressure more controlled. Nephrology following 06/30/2021 Patient is seen this morning sleeping although easily arousable and reports to feeling more nauseated today and not eating. Patient blood sugar elevated this morning and continued on half the normal dose of her long acting along with sliding scale and will continue with regimen for now and monitor accuchecks closely. Patient blood pressures variable as well and currently improved. Nephrology following and plan is for hemodialysis in the am. Will repeat am labs. Encouraged oral intake. Review of systems: Constitutional: reports of fatigue, no reports of fever, or chills Cardiovascular: No reports of chest pain or palpitations Respiratory: No reports of shortness of breath or cough GI: reports of nausea, no reports of vomiting, or diarrhea : No reports of dysuria or retention Neurovascular: No reports of weakness or numbness All medications have been reviewed Active Medications Acetaminophen (Acetaminophen Tab 325 Mg Tab) 650 mg PO Q6HR PRN PRN Reason: Fever and/ or Pain Amlodipine Besylate (Amlodipine 10 Mg Tab) 10 mg PO DAILY [facility] Last Admin: 06/30/21 08:24 Dose: 10 mg Documented by: Aspirin (Aspirin 81 Mg) 81 mg PO DAILY [facility] Last Admin: 06/30/21 08:24 Dose: 81 mg Documented by: Carvedilol (Carvedilol 12.5 Mg Tab) 25 mg PO BID [facility] Last Admin: 06/30/21 22:19 Dose: 25 mg Documented by: Clonidine (Clonidine Hcl 0.1 Mg Tab) 0.3 mg PO TID [facility] Last Admin: 06/30/21 22:21 Dose: 0.3 mg Documented by: Diphenhydramine HCl (Diphenhydramine 50 Mg/Ml 1 Ml Vial) 25 mg IVP Q6HR PRN PRN Reason: Allergy Symptoms Last Admin: 06/30/21 17:46 Dose: 25 mg Documented by: Ergocalciferol (Ergocalciferol 1,250 Mcg (50,000 Iu) Capsule) 1,250 mcg PO [facility] [facility] Last Admin: 06/27/21 21:26 Dose: 1,250 mcg Documented by: Furosemide (Furosemide 40 Mg Tab) 40 mg PO BID [facility] Last Admin: 06/30/21 22:19 Dose: 40 mg Documented by: Heparin Sodium (Porcine) (Heparin Sodium,Porcine/Pf 5,000 Unit/0.5 Ml Syringe) 5,000 unit SQ Q12HR [facility] Last Admin: 06/30/21 22:20 Dose: 5,000 unit Documented by: Hydralazine HCl (Hydralazine Hcl 20 Mg/Ml 1 Ml Vial) 10 mg IVP Q6HR PRN PRN Reason: Blood Pressure - High Hydralazine HCl (Hydralazine Hcl 50 Mg Tab) 100 mg PO TID [facility] Last Admin: 06/30/21 22:59 Dose: 100 mg Documented by: Hydromorphone HCl (Hydromorphone 0.5 Mg/0.5 Ml Syringe) 0.5 mg IVP Q3HR PRN PRN Reason: Moderate Pain Insulin Human Regular 100 unit (/ Sodium Chloride) 101 mls @ 0 mls/hr IV .Q0M [facility]; Protocol Last Titration: 06/27/21 17:03 Dose: 3 ml/hr, 3 mls/hr Documented by: Insulin Aspart (Insulin Aspart (Novolog) 100 Unit/Ml Vial) 0 unit SQ ACHS [facility]; Protocol Last Admin: 06/30/21 22:20 Dose: 3 unit Documented by: Insulin Detemir (Insulin Detemir (Levemir) 100 Unit/Ml Syr) 7 unit SQ DAILY@0700 [facility] Last Admin: 06/30/21 08:20 Dose: 7 unit Documented by: Isosorbide Mononitrate (Isosorbide Mononitrate Er 30 Mg Tab.Er.24h) 30 mg PO [facility] Last Admin: 06/30/21 22:20 Dose: 30 mg Documented by: Losartan Potassium (Losartan 50 Mg Tab) 50 mg PO DAILY [facility] Last Admin: 06/30/21 12:57 Dose: 50 mg Documented by: Metoclopramide HCl (Metoclopramide 5 Mg/Ml 2 Ml Vial) 5 mg IVP Q6HR PRN PRN Reason: Nausea And Vomiting Last Admin: 06/30/21 22:25 Dose: 5 mg Documented by: Naloxone HCl (Naloxone 0.4 Mg/Ml 1 Ml Vial) 0.2 mg IV Q2M PRN PRN Reason: Opioid Reversal Ondansetron HCl (Ondansetron 4 Mg/2 Ml Vial) 4 mg IVP Q8HR PRN PRN Reason: Nausea And Vomiting Pantoprazole Sodium (Pantoprazole 40 Mg Tablet) 40 mg PO BID [facility] Last Admin: 06/30/21 22:20 Dose: 40 mg Documented by: Ropinirole HCl (Ropinirole Hcl 1 Mg Tab) 0.5 mg PO [facility] Last Admin: 06/30/21 22:20 Dose: 0.5 mg Documented by: Sevelamer Carbonate (Sevelamer 800 Mg Tab) 800 mg PO TID-W/MEALS [facility] Last Admin: 06/30/21 17:41 Dose: 800 mg Documented by: Physical exam: Patient is lying in the bed asleep but arousalbe, no acute distress, alert and oriented.. HEENT: Normocephalic. Neck is supple. Pupils reactive. Legally blind. Nostrils clear. Oral cavity is moist. Neck reveals no JVD, carotid bruits, or thyromegaly. CHEST EXAMINATION: Trachea is central. Symmetrical expansion. No wheezing or rhonchi. Lung herr clear to auscultation and percussion. CARDIAC: Normal S1, S2 with no gallops. No murmurs ABDOMEN: Soft. Nontender. Bowel sounds present. No organomegaly. No abdominal bruits. Extremities: reveal no edema. No clubbing or cyanosis Neurologically asleep but arousable, alert, oriented x3 with well-coordinated movements. No focal deficits noted Skin: No rash or skin lesions. Psychiatric: Cooperative. Non-suicidal Musculoskeletal: No joint swelling or deformity. Normal range of motion. Assessment: Hypertensive urgency ESRD Intractable nausea and vomiting unable to keep down food and medications, improving although reports increased nausea today and did not eat breakfast Possible gastroparesis Hyperglycemia with uncontrolled diabetes type 1 Acute COVID-19 infection Diabetic peripheral neuropathy Diabetic nephropathy and retinopathy. Patient is legally blind DVT prophylaxis with heparin subcu Full code Plan: Patient will be continued on symptomatic management for nausea and vomiting and continue with reglan as patient reports that zofran does not work. Patient positive for covid 19 and continues to have no respiratory distress. Nephrology following and planning on hemodialysis in the morning. covid patients are being maintained on //mon schedule blood sugars continue to be elevated and drop drastically. Continue current regimen and monitor closely. Encouraged increased activity as tolerated. Prognosis is guarded at this time. Possible discharge in 24-48 hours if nausea improved and able to tolerate diet. Objective - Vital Signs Vital signs: Vital Signs Temp 98.9 F 06/30/21 07:00 Pulse 76 06/30/21 07:00 Resp 16 06/30/21 07:00 BP 190/90 06/30/21 07:00 Pulse Ox 98 06/30/21 07:00 Intake & Output 06/29/21 06/30/21 06/30/21 18:59 06:59 18:59 Intake Total 618 Output Total 3000 Balance -2382 Intake: Oral 118 Hemodialysis 500 Output: Hemodialysis 3000 Other: # Voids 1 - Labs CBC & Chem 7: 06/28/21 07:45 06/29/21 15:14 Labs: Abnormal Lab Results - Last 24 Hours (Table) 06/29/21 06/29/21 06/29/21 Range/Units 12:27 13:25 15:14 Sodium 127 L 134 L (137-145) mmol/L Potassium 6.8 H* (3.5-5.1) mmol/L Chloride 93 L 97 L (98-107) mmol/L Carbon Dioxide 19 L (22-30) mmol/L BUN 75 H 24 H (7-17) mg/dL Creatinine 9.22 H* 3.63 H (0.52-1.04) mg/dL Glucose 589 H* 189 H (74-99) mg/dL POC Glucose (mg/dL) 117 H (75-99) mg/dL Calcium 8.2 L (8.4-10.2) mg/dL 06/29/21 06/29/21 06/29/21 Range/Units 17:13 20:00 23:29 Sodium (137-145) mmol/L Potassium (3.5-5.1) mmol/L Chloride (98-107) mmol/L Carbon Dioxide (22-30) mmol/L BUN (7-17) mg/dL Creatinine (0.52-1.04) mg/dL Glucose (74-99) mg/dL POC Glucose (mg/dL) 238 H 254 H 113 H (75-99) mg/dL Calcium (8.4-10.2) mg/dL 06/30/21 Range/Units 06:52 Sodium (137-145) mmol/L Potassium (3.5-5.1) mmol/L Chloride (98-107) mmol/L Carbon Dioxide (22-30) mmol/L BUN (7-17) mg/dL Creatinine (0.52-1.04) mg/dL Glucose (74-99) mg/dL POC Glucose (mg/dL) 455 H (75-99) mg/dL Calcium (8.4-10.2) mg/dL
[2021-07-01 06:46] LABS: Glucose,Whole Blood 255 mg/dL (75-99)
[2021-07-01 08:03] LABS: African American GFR (CKD) 7 (>60 ml/min/1.73 sqM); Anion Gap 7 mmol/L; Blood Urea Nitrogen 58 mg/dL (7-17); Carbon Dioxide 24 mmol/L (22-30); Chloride 98 mmol/L (98-107); Glucose 250 mg/dL (74-99); Non-African American GFR(CKD) 6 (>60 ml/min/1.73 sqM); Sodium 129 mmol/L (137-145)
[2021-07-01 08:08] LABS: Potassium 6.3 mmol/L (3.5-5.1)
[2021-07-01] MEDS: HEPARIN SODIUM,PORCINE/PF 5,000 UNIT/0.5 ML SYRINGE SQ SCH ×2 (08:30→22:31)
[2021-07-01] MEDS: INSULIN DETEMIR (LEVEMIR) 100 UNIT/ML SYR SQ SCH (08:30)
[2021-07-01] MEDS: SEVELAMER 800 MG TAB PO SCH ×3 (08:31→18:23)
[2021-07-01] MEDS: INSULIN ASPART (NovoLOG) 100 UNIT/ML VIAL SQ SCH ×4 (08:31→22:32)
[2021-07-01] MEDS: ASPIRIN 81 MG PO SCH (08:32)
[2021-07-01] MEDS: FUROSEMIDE 40 MG TAB PO SCH ×2 (08:33→22:31)
[2021-07-01] MEDS: PANTOPRAZOLE 40 MG TABLET PO SCH ×2 (08:33→22:32)
[2021-07-01] MEDS: diphenhydrAMINE 50 MG/ML 1 ML VIAL IVP PRN ×2 (08:41→18:37)
--- NOTE | 2021-07-01 10:03 | P.PN ---
Subjective Patient is seen in follow-up for end-stage renal disease. Tolerating dialysis well. Blood pressure in the higher side. No vomiting this morning. Potassium high at 6.3. Vital signs are stable. General: The patient appeared well nourished and normally developed. HEENT: Head exam is unremarkable. LUNGS: Breath sounds decreased. HEART: Rate and Rhythm are regular. ABDOMEN: Soft, no distention. EXTREMITITES: No edema. Objective - Vital Signs Vital signs: Vital Signs Temp 98.3 F 07/01/21 07:00 Pulse 76 07/01/21 07:00 Resp 18 07/01/21 07:00 BP 180/88 07/01/21 07:00 Pulse Ox 98 07/01/21 07:00 Intake & Output 06/30/21 07/01/21 07/01/21 18:59 06:59 18:59 Intake Total 538 118 Balance 538 118 Intake: Oral 538 118 Other: Voiding Method Toilet Toilet # Voids 1 2 # Bowel Movements 1 - Labs CBC & Chem 7: 06/28/21 07:45 07/01/21 06:41 Labs: Abnormal Lab Results - Last 24 Hours (Table) 06/30/21 06/30/21 06/30/21 Range/Units 12:04 16:59 20:49 Sodium (137-145) mmol/L Potassium (3.5-5.1) mmol/L BUN (7-17) mg/dL Creatinine (0.52-1.04) mg/dL Glucose (74-99) mg/dL POC Glucose (mg/dL) 253 H 74 L 211 H (75-99) mg/dL 07/01/21 07/01/21 Range/Units 06:41 06:44 Sodium 129 L (137-145) mmol/L Potassium 6.3 H* (3.5-5.1) mmol/L BUN 58 H (7-17) mg/dL Creatinine 7.70 H* (0.52-1.04) mg/dL Glucose 250 H (74-99) mg/dL POC Glucose (mg/dL) 255 H (75-99) mg/dL Assessment and Plan Plan: Assessment: 1. End-stage renal disease maintained on hemodialysis on Monday schedule but currently on a [facility]ie Thursday Saturday schedule due to COVID-19 infection. 2. COVID-19 infection. 3. Hypertension with chronic kidney disease. Exacerbated by nausea and vomiting. 4. Diabetes mellitus. 5. 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 6. Nausea and vomiting. Possibly from diabetic gastroparesis. 7. Hyperkalemia secondary to chronic kidney disease and hyperglycemia. 8. Hypertonic hyponatremia secondary to hyperglycemia. Hypervolemic. Plan: Currently seen while undergoing hemodialysis. Will try for 3 L ultrafiltration. Discontinue losartan. Renal diet. 1500 mL fluid restriction. Tight blood sugar control.
[2021-07-01] MEDS: hydrALAZINE HCL 50 MG TAB PO SCH ×3 (10:32→22:33)
[2021-07-01] MEDS: carvediloL 12.5 MG TAB PO SCH ×2 (10:32→22:31)
[2021-07-01] MEDS: cloNIDine HCL 0.1 MG TAB PO SCH ×3 (10:32→22:33)
[2021-07-01] MEDS: amLODIPine 10 MG TAB PO SCH (10:32)
[2021-07-01 11:37] LABS: Glucose,Whole Blood 104 mg/dL (75-99)
[2021-07-01] MEDS ORDERED: HYDROmorphone 1 MG/ML 1 ML SYRINGE IVP PRN (12:11)
[2021-07-01] MEDS: LOSARTAN 50 MG TAB PO SCH (12:31)
[2021-07-01] MEDS: hydrALAZINE HCL 20 MG/ML 1 ML VIAL IVP PRN (16:42)
[2021-07-01] MEDS: ACETAMINOPHEN TAB 325 MG TAB PO PRN (16:42)
[2021-07-01 16:53] LABS: Glucose,Whole Blood 358 mg/dL (75-99)
[2021-07-01 20:29] LABS: Glucose,Whole Blood 227 mg/dL (75-99)
[2021-07-01] MEDS: ISOSORBIDE MONONITRATE ER 30 MG TAB.ER.24H PO SCH (22:32)
--- NOTE | 2021-07-01 23:17 | P.PN ---
Subjective Progress Note Date: 07/01/21 Patient is a 30-year-old female with a known history of hypertension, ESRD on hemodialysis, diabetes type 1 and previous history of DKA, bilateral peripheral neuropathy of the legs, legally blind, restless leg syndrome, history of CVA/TIA and previous multiple admissions presents to ER due to complaints of nausea and hypertension. Patient has been having nausea and vomiting and unable to take her antihypertensive medications. Patient did have hemodialysis yesterday with complete treatment. Denied any complaints of chest pain. Mild shortness of breath. Patient was found to have elevated SBP is greater than 200 mmHg and was instructed to go to ER. Chest x-ray showed no acute cardiopulmonary process EKG showed normal sinus rhythm Patient blood pressure was 222/114 on admission and is currently saturating at 97% on room air. Laboratory data showed WBC 4.5 hemoglobin 10.8 and platelets 200 Sodium 137 potassium 3.8 chloride 95 bicarb is 35 BUN 25 and 25 and creatinine 4.24 and blood sugar 301 and A1c level is 9.4 Coronavirus PCR detected. 06/28/2021 Patient is seen and evaluated this morning in follow up and denies any shortness of breath. Patient is 100% on room air. Patient being followed by nephrology as she is ESRD and normally on // schedule although according to workforce staffing advisor, covid patients requiring dialysis are receiving it on // during hospitalization. Patient labs are abnormal and will be receiving a short ultrafilration round of dialysis today and treatment tomorrow. Blood pressure more controlled today and continue current regimen. Blood sugars remain elevated and will continue current insulin orders and cover as needed as patient is a poorly controlled brittle diabetic. Patient is off insulin drip. 06/29/2021 Patient is seen and evaluated this morning and states that her blood sugars continue to be elevated and patient is receiving dialysis currently. Patient normally receives 15 units of long acting daily and had this yesterday and sliding scale and blood sugar dropped to 60's. Will give 7 units of long acting and continue sliding scale and monitor closely. Patient labs were drawn by dialysis and sitting on the counter for some time and possibly hemolyzed as labs were abnormal but more so than normal. Will reorder BMP and await results. Blood pressure more controlled. Nephrology following 06/30/2021 Patient is seen this morning sleeping although easily arousable and reports to feeling more nauseated today and not eating. Patient blood sugar elevated this morning and continued on half the normal dose of her long acting along with sliding scale and will continue with regimen for now and monitor accuchecks closely. Patient blood pressures variable as well and currently improved. Nephrology following and plan is for hemodialysis in the am. Will repeat am labs. Encouraged oral intake. 07/01/2021 Patient is currently receiving hemodialysis this morning. Patient continues with nausea and reports to dry heaving throughout the night and reports to eating breakfast this morning. Blood sugars are elevated although lower than normal and is continued on sliding scale and only 7 units of her normal 15 units of long acting and will continue. Patient denies any chest pain or shortness of breath on exam. Patient is afebrile. Patient blood pressure elevated today and wasn't given her blood pressure medications this morning due to hemodialysis and discussed with nursing staff to monitor blood pressure after dialysis and give the medications after. Potassium is elevated at 6.3 today. Sodium is down again at 129 and will fluid restrict and repeat labs in the am. Review of systems: Constitutional: reports of fatigue, no reports of fever, or chills Cardiovascular: No reports of chest pain or palpitations Respiratory: No reports of shortness of breath or cough GI: reports of nausea, no reports of vomiting, or diarrhea : No reports of dysuria or retention Neurovascular: No reports of weakness or numbness Labs: Sodium is 129, potassium is 6.3, bun is 58, creatinine is 7.70 and calcium is 9.0. All medications have been reviewed Active Medications Acetaminophen (Acetaminophen Tab 325 Mg Tab) 650 mg PO Q6HR PRN PRN Reason: Fever and/ or Pain Last Admin: 07/01/21 16:42 Dose: 650 mg Documented by: Amlodipine Besylate (Amlodipine 10 Mg Tab) 10 mg PO DAILY [facility] Last Admin: 07/01/21 10:32 Dose: Not Given Documented by: Aspirin (Aspirin 81 Mg) 81 mg PO DAILY [facility] Last Admin: 07/01/21 08:32 Dose: 81 mg Documented by: Carvedilol (Carvedilol 12.5 Mg Tab) 25 mg PO BID [facility] Last Admin: 07/01/21 22:31 Dose: 25 mg Documented by: Clonidine (Clonidine Hcl 0.1 Mg Tab) 0.3 mg PO TID [facility] Last Admin: 02/03/22 22:33 Dose: 0.3 mg Documented by: Diphenhydramine HCl (Diphenhydramine 50 Mg/Ml 1 Ml Vial) 25 mg IVP Q6HR PRN PRN Reason: Allergy Symptoms Last Admin: 07/01/21 18:37 Dose: 25 mg Documented by: Ergocalciferol (Ergocalciferol 1,250 Mcg (50,000 Iu) Capsule) 1,250 mcg PO [place] [facility] Last Admin: 06/27/21 21:26 Dose: 1,250 mcg Documented by: Furosemide (Furosemide 40 Mg Tab) 40 mg PO BID [facility] Last Admin: 07/01/21 22:31 Dose: 40 mg Documented by: Heparin Sodium (Porcine) (Heparin Sodium,Porcine/Pf 5,000 Unit/0.5 Ml Syringe) 5,000 unit SQ Q12HR [facility] Last Admin: 07/01/21 22:31 Dose: 5,000 unit Documented by: Hydralazine HCl (Hydralazine Hcl 20 Mg/Ml 1 Ml Vial) 10 mg IVP Q6HR PRN PRN Reason: Blood Pressure - High Last Admin: 07/01/21 16:42 Dose: 10 mg Documented by: Hydralazine HCl (Hydralazine Hcl 50 Mg Tab) 100 mg PO TID [facility] Last Admin: 07/01/21 22:33 Dose: 100 mg Documented by: Hydromorphone HCl (Hydromorphone 1 Mg/Ml 1 Ml Syringe) 0.5 mg IVP Q3HR PRN PRN Reason: Moderate Pain Insulin Human Regular 100 unit (/ Sodium Chloride) 101 mls @ 0 mls/hr IV .Q0M [facility]; Protocol Last Titration: 06/27/21 17:03 Dose: 3 ml/hr, 3 mls/hr Documented by: Insulin Aspart (Insulin Aspart (Novolog) 100 Unit/Ml Vial) 0 unit SQ ACHS [facility]; Protocol Last Admin: 07/01/21 22:32 Dose: 3 unit Documented by: Insulin Detemir (Insulin Detemir (Levemir) 100 Unit/Ml Syr) 7 unit SQ DAILY@0700 [facility] Last Admin: 07/01/21 08:30 Dose: 7 unit Documented by: Isosorbide Mononitrate (Isosorbide Mononitrate Er 30 Mg Tab.Er.24h) 30 mg PO HS [facility] Last Admin: 07/01/21 22:32 Dose: 30 mg Documented by: Metoclopramide HCl (Metoclopramide 5 Mg/Ml 2 Ml Vial) 5 mg IVP Q6HR PRN PRN Reason: Nausea And Vomiting Last Admin: 06/30/21 22:25 Dose: 5 mg Documented by: Naloxone HCl (Naloxone 0.4 Mg/Ml 1 Ml Vial) 0.2 mg IV Q2M PRN PRN Reason: Opioid Reversal Ondansetron HCl (Ondansetron 4 Mg/2 Ml Vial) 4 mg IVP Q8HR PRN PRN Reason: Nausea And Vomiting Pantoprazole Sodium (Pantoprazole 40 Mg Tablet) 40 mg PO BID [facility] Last Admin: 07/01/21 22:32 Dose: 40 mg Documented by: Ropinirole HCl (Ropinirole Hcl 1 Mg Tab) 0.5 mg PO HS [facility] Last Admin: 07/01/21 22:32 Dose: 0.5 mg Documented by: Sevelamer Carbonate (Sevelamer 800 Mg Tab) 800 mg PO TID-W/MEALS [facility] Last Admin: 07/01/21 18:23 Dose: 800 mg Documented by: Physical exam: Patient is lying in the bed asleep but arousable, no acute distress, alert and oriented.. HEENT: Normocephalic. Neck is supple. Pupils reactive. Legally blind. Nostrils clear. Oral cavity is moist. Neck reveals no JVD, carotid bruits, or thyromegaly. CHEST EXAMINATION: Trachea is central. Symmetrical expansion. No wheezing or rhonchi. Lung herr clear to auscultation and percussion. CARDIAC: Normal S1, S2 with no gallops. No murmurs ABDOMEN: Soft. Nontender. Bowel sounds present. No organomegaly. No abdominal bruits. Extremities: reveal no edema. No clubbing or cyanosis Neurologically asleep but arousable, alert, oriented x3 with well-coordinated movements. No focal deficits noted Skin: No rash or skin lesions. Psychiatric: Cooperative. Non-suicidal Musculoskeletal: No joint swelling or deformity. Normal range of motion. Assessment: Hypertensive urgency ESRD Intractable nausea and vomiting unable to keep down food and medications, improving although reports increased nausea today and dry heaving all night. reports to eating breakfast today Possible gastroparesis hyponatremia hyperkalemia Hyperglycemia with uncontrolled diabetes type 1 Acute COVID-19 infection Diabetic peripheral neuropathy Diabetic nephropathy and retinopathy. Patient is legally blind DVT prophylaxis with heparin subcu Full code Plan: Patient will be continued on symptomatic management for nausea and vomiting and continue with reglan Patient states she was able to eat breakfast today. Encouraged oral intake and increased activity as tolerated. Patient positive for covid 19 and continues to have no respiratory distress. Nephrology following and receiving hemodialysis currently. covid patients are being maintained on T//mon schedule blood sugars continue to be elevated and drop drastically. Continue current regimen and monitor closely. Will fluid restrict for hyponatremia and repeat labs. Prognosis is guarded at this time. Possible discharge in 24-48 hours. Objective - Vital Signs Vital signs: Vital Signs Temp 98.3 F 07/01/21 07:00 Pulse 76 07/01/21 07:00 Resp 18 07/01/21 07:00 BP 180/88 07/01/21 07:00 Pulse Ox 98 07/01/21 07:00 Intake & Output 06/30/21 07/01/21 07/01/21 18:59 06:59 18:59 Intake Total 538 118 Balance 538 118 Intake: Oral 538 118 Other: Voiding Method Toilet Toilet # Voids 1 2 # Bowel Movements 1 - Labs CBC & Chem 7: 06/28/21 07:45 07/01/21 06:41 Labs: Abnormal Lab Results - Last 24 Hours (Table) 06/30/21 06/30/21 06/30/21 Range/Units 12:04 16:59 20:49 Sodium (137-145) mmol/L Potassium (3.5-5.1) mmol/L BUN (7-17) mg/dL Creatinine (0.52-1.04) mg/dL Glucose (74-99) mg/dL POC Glucose (mg/dL) 253 H 74 L 211 H (75-99) mg/dL 07/01/21 07/01/21 Range/Units 06:41 06:44 Sodium 129 L (137-145) mmol/L Potassium 6.3 H* (3.5-5.1) mmol/L BUN 58 H (7-17) mg/dL Creatinine 7.70 H* (0.52-1.04) mg/dL Glucose 250 H (74-99) mg/dL POC Glucose (mg/dL) 255 H (75-99) mg/dL
[2021-07-02] MEDS: diphenhydrAMINE 50 MG/ML 1 ML VIAL IVP PRN ×3 (00:23→20:24)
[2021-07-02] MEDS: hydrALAZINE HCL 20 MG/ML 1 ML VIAL IVP PRN (03:19)
[2021-07-02] MEDS: ACETAMINOPHEN TAB 325 MG TAB PO PRN (03:22)
[2021-07-02 05:18] LABS: Glucose,Whole Blood 505 mg/dL (75-99)
[2021-07-02] MEDS: METOCLOPRAMIDE 5 MG/ML 2 ML VIAL IVP PRN (05:29)
[2021-07-02] MEDS ORDERED: INSULIN ASPART (NovoLOG) 100 UNIT/ML VIAL SQ ONE (06:26)
[2021-07-02 07:58] LABS: African American GFR (CKD) 9 (>60 ml/min/1.73 sqM); Anion Gap 10 mmol/L; Blood Urea Nitrogen 47 mg/dL (7-17); Calcium 8.6 mg/dL (8.4-10.2); Carbon Dioxide 21 mmol/L (22-30); Chloride 99 mmol/L (98-107); Non-African American GFR(CKD) 8 (>60 ml/min/1.73 sqM); Sodium 130 mmol/L (137-145)
[2021-07-02 08:04] LABS: Glucose 599 mg/dL (74-99); Potassium 6.5 mmol/L (3.5-5.1)
[2021-07-02 08:24] LABS: Glucose,Whole Blood 482 mg/dL (75-99)
[2021-07-02] MEDS: HEPARIN SODIUM,PORCINE/PF 5,000 UNIT/0.5 ML SYRINGE SQ SCH ×2 (08:54→20:17)
[2021-07-02] MEDS: INSULIN ASPART (NovoLOG) 100 UNIT/ML VIAL SQ SCH ×4 (08:54→20:17)
[2021-07-02] MEDS: INSULIN DETEMIR (LEVEMIR) 100 UNIT/ML SYR SQ SCH (08:54)
[2021-07-02] MEDS: amLODIPine 10 MG TAB PO SCH (08:55)
[2021-07-02] MEDS: SEVELAMER 800 MG TAB PO SCH ×3 (08:55→17:41)
[2021-07-02] MEDS: carvediloL 12.5 MG TAB PO SCH ×2 (08:55→20:16)
[2021-07-02] MEDS: ASPIRIN 81 MG PO SCH (08:55)
[2021-07-02] MEDS: PANTOPRAZOLE 40 MG TABLET PO SCH ×2 (08:55→20:16)
[2021-07-02] MEDS: cloNIDine HCL 0.1 MG TAB PO SCH ×3 (08:55→20:15)
[2021-07-02] MEDS: FUROSEMIDE 40 MG TAB PO SCH ×2 (08:55→20:16)
[2021-07-02] MEDS: hydrALAZINE HCL 50 MG TAB PO SCH ×3 (08:56→20:16)
[2021-07-02] MEDS ORDERED: INSULIN REGULAR 100 UNIT/ML VIAL (IV) IV ONE (09:59)
[2021-07-02] MEDS ORDERED: CALCIUM GLUCONATE 1 GM in SODIUM CHLORIDE 0.9% 100 ML IVPB ONE (09:59)
[2021-07-02] MEDS ORDERED: DEXTROSE 50% SYRINGE 50 ML IVP STA (09:59)
--- NOTE | 2021-07-02 10:01 | P.PN ---
Subjective Patient is seen in follow-up for end-stage renal disease. No problems with dialysis yesterday. Blood sugar 599 this morning potassium of 6.5. Blood pressure 169/86. Denies chest pain or shortness of breath. Vital signs are stable. General: The patient appeared well nourished and normally developed. HEENT: Head exam is unremarkable. LUNGS: Breath sounds decreased. HEART: Rate and Rhythm are regular. ABDOMEN: Soft, no distention. EXTREMITITES: No edema. Objective - Vital Signs Vital signs: Vital Signs Temp 98.2 F 07/02/21 07:00 Pulse 84 07/02/21 07:00 Resp 16 07/02/21 07:00 BP 169/86 07/02/21 07:00 Pulse Ox 97 07/02/21 07:00 Intake & Output 07/01/21 07/02/21 07/02/21 18:59 06:59 18:59 Intake Total 418 Output Total 3500 Balance -3082 Weight 45.359 kg Intake: Oral 118 Hemodialysis 300 Output: Hemodialysis 3500 Other: Voiding Method Toilet # Voids 1 0 # Bowel Movements 1 - Labs CBC & Chem 7: 06/28/21 07:45 07/02/21 07:19 Labs: Abnormal Lab Results - Last 24 Hours (Table) 07/01/21 07/01/21 07/01/21 Range/Units 11:35 16:52 20:28 Sodium (137-145) mmol/L Potassium (3.5-5.1) mmol/L Carbon Dioxide (22-30) mmol/L BUN (7-17) mg/dL Creatinine (0.52-1.04) mg/dL Glucose (74-99) mg/dL POC Glucose (mg/dL) 104 H 358 H 227 H (75-99) mg/dL 07/02/21 07/02/21 07/02/21 Range/Units 05:15 07:19 08:23 Sodium 130 L (137-145) mmol/L Potassium 6.5 H* (3.5-5.1) mmol/L Carbon Dioxide 21 L (22-30) mmol/L BUN 47 H (7-17) mg/dL Creatinine 6.54 H (0.52-1.04) mg/dL Glucose 599 H* (74-99) mg/dL POC Glucose (mg/dL) 505 H 482 H (75-99) mg/dL Assessment and Plan Plan: Assessment: 1. End-stage renal disease maintained on hemodialysis on Monday schedule but currently on a Monday schedule due to COVID-19 infection. 2. COVID-19 infection. 3. Hypertension with chronic kidney disease. Exacerbated by nausea and vomiting. 4. Diabetes mellitus. 5. 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 6. Nausea and vomiting. Possibly from diabetic gastroparesis. 7. Hyperkalemia secondary to chronic kidney disease and hyperglycemia. 8. Hypertonic hyponatremia secondary to hyperglycemia. Hypervolemic. Plan: Hemodialysis today with goal 3-4 L ultrafiltration. Continue to hold losartan due to hyperkalemia. Renal diet. 1500 mL fluid restriction. Tight blood sugar control. 1 g IV calcium gluconate now. 10 units IV regular insulin with an amp of D50 now.
[2021-07-02] MEDS ORDERED: INSULIN DETEMIR (LEVEMIR) 100 UNIT/ML SYR SQ STA (10:33)
[2021-07-02 12:30] LABS: Glucose,Whole Blood 85 mg/dL (75-99)
[2021-07-02 13:08] LABS: Glucose,Whole Blood 79 mg/dL (75-99)
[2021-07-02] MEDS ORDERED: DEXTROSE 50% SYRINGE 50 ML IVP ONE (16:19)
[2021-07-02 16:22] LABS: Glucose,Whole Blood 32 mg/dL (75-99)
[2021-07-02 16:33] LABS: Glucose,Whole Blood 235 mg/dL (75-99)
[2021-07-02 17:25] LABS: Glucose,Whole Blood 191 mg/dL (75-99)
[2021-07-02 20:10] LABS: Glucose,Whole Blood 148 mg/dL (75-99)
[2021-07-02] MEDS: ISOSORBIDE MONONITRATE ER 30 MG TAB.ER.24H PO SCH (20:16)
[2021-07-03] MEDS: diphenhydrAMINE 50 MG/ML 1 ML VIAL IVP PRN ×2 (04:10→15:59)
[2021-07-03 06:09] LABS: Glucose,Whole Blood 543 mg/dL (75-99)
[2021-07-03 06:09] LABS: Glucose,Whole Blood 565 mg/dL (75-99)
[2021-07-03] MEDS ORDERED: INSULIN REGULAR 100 UNIT in SODIUM CHLORIDE 0.9% 100 ML IV SCH (06:30)
[2021-07-03 06:36] LABS: ALT 28 U/L (4-34); AST 42 U/L (14-36); African American GFR (CKD) 13 (>60 ml/min/1.73 sqM); Albumin 3.4 g/dL (3.5-5.0); Albumin/Globulin Ratio 1.3; Alkaline Phosphatase 170 U/L (38-126); Anion Gap 7 mmol/L; Blood Urea Nitrogen 28 mg/dL (7-17); Calcium 8.7 mg/dL (8.4-10.2); Carbon Dioxide 24 mmol/L (22-30); Chloride 94 mmol/L (98-107); Globulin 2.6 g/dL; Non-African American GFR(CKD) 12 (>60 ml/min/1.73 sqM); Sodium 125 mmol/L (137-145); Total Bilirubin 0.5 mg/dL (0.2-1.3)
[2021-07-03 06:49] LABS: Potassium 6.3 mmol/L (3.5-5.1)
[2021-07-03 06:50] LABS: Glucose 535 mg/dL (74-99)
[2021-07-03] MEDS ORDERED: INSULIN DETEMIR (LEVEMIR) 100 UNIT/ML SYR SQ SCH ×2 (07:00)
[2021-07-03 07:03] LABS: Glucose,Whole Blood >600 mg/dL (75-99)
[2021-07-03] MEDS: carvediloL 12.5 MG TAB PO SCH (07:27)
[2021-07-03] MEDS: amLODIPine 10 MG TAB PO SCH (07:27)
[2021-07-03] MEDS: PANTOPRAZOLE 40 MG TABLET PO SCH (07:27)
[2021-07-03] MEDS: ASPIRIN 81 MG PO SCH (07:27)
[2021-07-03] MEDS: FUROSEMIDE 40 MG TAB PO SCH (07:27)
[2021-07-03] MEDS: HEPARIN SODIUM,PORCINE/PF 5,000 UNIT/0.5 ML SYRINGE SQ SCH (07:27)
[2021-07-03] MEDS: hydrALAZINE HCL 50 MG TAB PO SCH (07:28)
[2021-07-03] MEDS: cloNIDine HCL 0.1 MG TAB PO SCH ×2 (07:28→15:52)
[2021-07-03] MEDS: SEVELAMER 800 MG TAB PO SCH ×2 (07:28→13:01)
[2021-07-03 09:01] LABS: Glucose,Whole Blood 393 mg/dL (75-99)
--- NOTE | 2021-07-03 09:06 | P.PN ---
Subjective Patient is seen in follow-up for end-stage renal disease. No problems with dialysis yesterday. Tolerated 3.3 L ultrafiltration. Blood pressure remains high. Blood sugar and potassium again elevated this morning. Now on insulin drip. Vital signs are stable. Blood pressure high. General: The patient appeared well nourished and normally developed. HEENT: Head exam is unremarkable. LUNGS: Breath sounds decreased. HEART: Rate and Rhythm are regular. ABDOMEN: Soft, no distention. EXTREMITITES: No edema. Objective - Vital Signs Vital signs: Vital Signs Temp 97.9 F 07/03/21 07:30 Pulse 79 07/03/21 07:30 Resp 17 07/03/21 07:30 BP 220/107 07/03/21 07:30 Pulse Ox 99 07/03/21 07:30 Intake & Output 07/02/21 07/03/21 07/03/21 18:59 06:59 18:59 Intake Total 536 Output Total 3300 Balance -2764 Intake: Oral 236 Hemodialysis 300 Output: Hemodialysis 3300 Other: # Voids 0 2 - Labs CBC & Chem 7: 06/28/21 07:45 07/03/21 06:01 Labs: Abnormal Lab Results - Last 24 Hours (Table) 07/02/21 07/02/21 07/02/21 Range/Units 16:17 16:31 17:21 Sodium (137-145) mmol/L Potassium (3.5-5.1) mmol/L Chloride (98-107) mmol/L BUN (7-17) mg/dL Creatinine (0.52-1.04) mg/dL Glucose (74-99) mg/dL POC Glucose (mg/dL) 32 L 235 H 191 H (75-99) mg/dL AST (14-36) U/L Alkaline Phosphatase (38-126) U/L Total Protein (6.3-8.2) g/dL Albumin (3.5-5.0) g/dL 07/02/21 07/03/21 07/03/21 Range/Units 20:09 06:01 06:06 Sodium 125 L (137-145) mmol/L Potassium 6.3 H* (3.5-5.1) mmol/L Chloride 94 L (98-107) mmol/L BUN 28 H (7-17) mg/dL Creatinine 4.68 H (0.52-1.04) mg/dL Glucose 535 H* (74-99) mg/dL POC Glucose (mg/dL) 148 H 543 H (75-99) mg/dL AST 42 H (14-36) U/L Alkaline Phosphatase 170 H (38-126) U/L Total Protein 6.0 L (6.3-8.2) g/dL Albumin 3.4 L (3.5-5.0) g/dL 07/03/21 07/03/21 07/03/21 Range/Units 06:07 07:01 09:00 Sodium (137-145) mmol/L Potassium (3.5-5.1) mmol/L Chloride (98-107) mmol/L BUN (7-17) mg/dL Creatinine (0.52-1.04) mg/dL Glucose (74-99) mg/dL POC Glucose (mg/dL) 565 H >600 H 393 H (75-99) mg/dL AST (14-36) U/L Alkaline Phosphatase (38-126) U/L Total Protein (6.3-8.2) g/dL Albumin (3.5-5.0) g/dL Assessment and Plan Plan: Assessment: 1. End-stage renal disease maintained on hemodialysis on Monday schedule but currently on a Monday schedule due to COVID- 19 infection. 2. COVID-19 infection. 3. Hypertension with chronic kidney disease. Exacerbated by nausea and vomiting. 4. Diabetes mellitus. 5. 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 6. Nausea and vomiting. Possibly from diabetic gastroparesis. 7. Hyperkalemia secondary to chronic kidney disease and hyperglycemia. 8. Hypertonic hyponatremia secondary to hyperglycemia. Hypervolemic. Corrected sodium in the normal range. Plan: Hemodialysis Monday. Continue to hold losartan due to hyperkalemia. Renal diet. 1500 mL fluid restriction. Tight blood sugar control. Increase hydralazine to 100 mg 4 times daily. Add minoxidil. Increase Lasix to 80 mg twice daily. Repeat potassium level this afternoon once blood sugars better controlled.
[2021-07-03 11:07] LABS: Glucose,Whole Blood 193 mg/dL (75-99)
[2021-07-03 12:11] LABS: Glucose,Whole Blood 108 mg/dL (75-99)
[2021-07-03] MEDS ORDERED: hydrALAZINE HCL 50 MG TAB PO SCH (13:00)
[2021-07-03 13:07] LABS: Glucose,Whole Blood 87 mg/dL (75-99)
[2021-07-03 14:12] LABS: Glucose,Whole Blood 81 mg/dL (75-99)
[2021-07-03 14:38] VITALS: BP 170/88; PULSE 77; RESP 16; TEMP 98.5
[2021-07-03] MEDS ORDERED: FUROSEMIDE 80 MG TAB PO SCH (21:00)
[2021-07-03] MEDS ORDERED: minoxidiL 2.5 MG TAB PO SCH (21:00)
== END 2021-07-03 16:32 | disposition home or self-care (01) | DRG 304 ==
LOC: EC 17:31 → 6NMEDSUR 20:31 → OBSVTOIN 06-28 13:40
PROVIDERS: ADMIT Internal Medicine; ATTEND Internal Medicine
PROC: 5A1D70Z Performance of Urinary Filtration, Intermittent, Less than 6 Hours Per Day (ICD-10-PCS; principal; 2021-06-28)
DX: I16.0 Hypertensive urgency (principal); U07.1 COVID-19; N18.6 End stage renal disease; E87.1 Hypo-osmolality and hyponatremia; I12.0 Hypertensive chronic kidney disease with stage 5 chronic kidney disease or end stage renal disease; E83.9 Disorder of mineral metabolism, unspecified; E10.22 Type 1 diabetes mellitus with diabetic chronic kidney disease; E10.319 Type 1 diabetes mellitus with unspecified diabetic retinopathy without macular edema; E10.42 Type 1 diabetes mellitus with diabetic polyneuropathy; E10.65 Type 1 diabetes mellitus with hyperglycemia; E87.70 Fluid overload, unspecified; E87.5 Hyperkalemia; G25.81 Restless legs syndrome; E10.43 Type 1 diabetes mellitus with diabetic autonomic (poly)neuropathy; K31.84 Gastroparesis; G40.909 Epilepsy, unspecified, not intractable, without status epilepticus; H54.8 Legal blindness, as defined in USA; Z79.4 Long term (current) use of insulin; Z99.2 Dependence on renal dialysis; Z79.82 Long term (current) use of aspirin; Z79.899 Other long term (current) drug therapy; Z80.8 Family history of malignant neoplasm of other organs or systems; Z82.0 Family history of epilepsy and other diseases of the nervous system; Z82.49 Family history of ischemic heart disease and other diseases of the circulatory system; Z86.73 Personal history of transient ischemic attack (TIA), and cerebral infarction without residual deficits; Z90.49 Acquired absence of other specified parts of digestive tract; Z88.8 Allergy status to other drugs, medicaments and biological substances; Z91.013 Allergy to seafood; Z81.8 Family history of other mental and behavioral disorders
CPT/HCPCS: 36415; 71045; 80048; 80053; 83036; 84132; 85025; 87635; 90935; 93005; 96374; 96375; 99284

== ENCOUNTER 2021-07-15 14:41 | Emergency (ER) | payer MEDICARE, OTHER ==
--- NOTE | 2021-07-15 15:25 | ED ---
General Adult HPI - General Chief complaint: Chest Pain Stated complaint: Hypertension Time Seen by Provider: 07/15/21 15:02 Source: EMS Mode of arrival: EMS Limitations: altered mental status - History of Present Illness Initial comments: Dictation was produced using [employer] dictation software. please excuse any grammatical, word or spelling errors. Chief Complaint: Patient is a 30-year-old female well-known to emergency department for multiple visitations for myriad complaints presents emergency department again for hypertension, chest pain History of Present Illness: Is a 30-year-old female she is frequent emergency department for chief complaint of chest pain, total body pain and hypertension. Patient has history of malignant hypertension, ESRD with dialysis Monday. She presents today after being instructed by the dialysis staff to come to the emergency department to receive excess dialysis. Patient received dialysis today. She is normally Monday was a Monday however she had dialysis today to remove excess fluid. She was just hospitalized 3 days ago for hypertension, chest pain and hyperglycemia. Patient's no for medication noncompliance. Since she has chest pain that feels like her usual chest pain. Substernal. Nonradiating not associated with diaphoresis or nausea. The ROS documented in this emergency department record has been reviewed and confirmed by me. Those systems with pertinent positive or negative responses have been documented in the HPI. All other systems are other negative and/or noncontributory. PHYSICAL EXAM: General Impression: Alert and oriented x3, not in acute distress HEENT: Normocephalic atraumatic, extra-ocular movements intact, pupils equal and reactive to light bilaterally, mucous membranes moist. Cardiovascular: Heart regular rate and rhythm Chest: Able to complete full sentences, no retractions, no tachypnea Abdomen: abdomen soft, non-tender, non-distended, no organomegaly Musculoskeletal: Pulses present and equal in all extremities, no peripheral edema Motor: no focal deficits noted Neurological: CN II-XII grossly intact, no focal motor or sensory deficits noted Skin: Intact with no visualized rashes Psych: Normal affect and mood ED course: 30-year-old female well-known to the emergency department for multiple visitations for hypertension, chest pain and dialysis-related issues presents to the ER again for hypertension, chest pain and short chin to be admitted for more dialysis. Vital signs upon arrival shows blood pressure 2 03/97, rest of vital signs within acceptable limits. I'm very familiar with patient. At the bedside she appears to be baseline. Patient reevaluated at bedside at 4:50 PM found to be stable medical condition. She denies any chest pain. Patient's blood pressure improved to 154/77. She did receive Catapres prior to arrival. Case was discussed with Dr. Chase who is aware patient. He requests that patient's blood pressure be monitored and for her to show up for her dialysis appointment tomorrow. Return precautions discussed. Patient is agreeable with disposition plan. EKG interpretation: Ventricular rate 87, sinus rhythm,. Interval 162, QRS 92, QTc 446. No SC prolongation, no QTC prolongation, no ST or T-wave changes noted. EKG compared to 07/10/2021 showing no changes. Overall, this EKG is unremarkable - Related Data Home Medications Medication Instructions Recorded Confirmed Aspirin EC [Ecotrin Low Dose] 81 mg PO DAILY 04/03/21 07/10/21 Carvedilol [Coreg] 25 mg PO BID 04/03/21 07/10/21 Ergocalciferol (Vitamin D2) 1,250 mcg PO COPELAND 04/03/21 07/10/21 [Drisdol (50,000 Iu)] INSULIN LISPRO (HumaLOG) [humaLOG] See Protocol SQ AC-TID 04/03/21 07/10/21 Isosorbide Mononitrate ER [Imdur] 30 mg PO HS 04/03/21 07/10/21 Escitalopram [Lexapro] 20 mg PO DAILY 04/17/21 07/10/21 rOPINIRole HCL [Requip] 0.5 mg PO HS 04/17/21 07/10/21 Melatonin 5 - 10 mg PO HS PRN 06/29/21 07/10/21 Insulin Glargine [Lantus Vial] 10 unit SQ HS 07/10/21 07/10/21 Previous Rx's Medication Instructions Recorded Acetaminophen Tab [Tylenol] 650 mg PO Q6HR PRN #30 tab 04/09/21 amLODIPine [Norvasc] 10 mg PO DAILY 30 Days #30 tab 04/15/21 Sevelamer [Renvela] 800 mg PO TID-W/MEALS 30 Days #90 05/31/21 tab Pantoprazole Sodium [Protonix] 40 mg PO BID 30 Days #60 tab 06/04/21 Glucagon Emergency Kit 1 mg IM ONCE PRN #1 kit 06/15/21 Furosemide [Lasix] 80 mg PO BID #60 tab 07/03/21 hydrALAZINE HCL [Apresoline] 100 mg PO QID #120 tab 07/03/21 minoxidiL [Loniten] 2.5 mg PO BID #60 tab 07/03/21 cloNIDine HCL [Catapres] 0.3 mg PO TID 30 Days #90 tablet 07/12/21 Allergies Allergy/AdvReac Type Severity Reaction Status Date / Time Fish Containing Products Allergy Rash/Hives Verified 07/15/21 14:48 [Fish] iodine Allergy Anaphylaxis Verified 07/15/21 14:48 Review of Systems ROS Statement: Those systems with pertinent positive or pertinent negative responses have been documented in the HPI. ROS Other: All systems not noted in ROS Statement are negative. Past Medical History Past Medical History: CVA/TIA, Dialysis, Eye Disorder, Hypertension, Renal Disease, Seizure Disorder Additional Past Medical History / Comment(s): ESRD with hemodialysis M/W/F, IDDM type 1, DKA, neuropathy bilateral legs/feet, diabetic retinopathy/legally blind, RLS, recent hospitalizations for gastritis, severe hypokalemia, fluid retention in abdomin/legs. There is no definite diagnosis of seizure disorder History of Any Multi-Drug Resistant Organisms: None Reported Past Surgical History: Appendectomy, Section, Cholecystectomy Additional Past Surgical History / Comment(s): fistula left arm Past Anesthesia/Blood Transfusion Reactions: No Reported Reaction Past Psychological History: Anxiety, Depression Smoking Status: Never smoker Past Alcohol Use History: None Reported Past Drug Use History: None Reported - Past Family History Mother Family Medical History: Cancer, Hypertension Additional Family Medical History / Comment(s): Thyroid cancer, bipolar Father Family Medical History: Seizure Disorder Additional Family Medical History / Comment(s): Epilepsy General Exam Limitations: altered mental status Course Vital Signs 07/15/21 07/15/21 07/15/21 14:48 15:01 16:05 Temperature 98.8 F Pulse Rate 89 88 88 Respiratory 18 18 18 Rate Blood Pressure 174/95 203/97 159/87 O2 Sat by Pulse 99 99 94 L Oximetry 07/15/21 16:45 Temperature Pulse Rate 90 Respiratory 16 Rate Blood Pressure 154/77 O2 Sat by Pulse 96 Oximetry Medical Decision Making - Lab Data Result diagrams: 07/15/21 15:33 07/15/21 15:33 Lab Results 07/15/21 07/15/21 Range/Units 15:33 15:33 WBC 6.3 (3.8-10.6) k/uL RBC 2.66 L (3.80-5.40) m/uL Hgb 8.6 L (11.4-16.0) gm/dL Hct 25.0 L (34.0-46.0) % MCV 94.2 (80.0-100.0) fL MCH 32.3 (25.0-35.0) pg MCHC 34.3 (31.0-37.0) g/dL RDW 17.6 H (11.5-15.5) % Plt Count 231 (150-450) k/uL MPV 8.4 Neutrophils % 72 % Lymphocytes % 16 % Monocytes % 8 % Eosinophils % 1 % Basophils % 1 % Neutrophils # 4.5 (1.3-7.7) k/uL Lymphocytes # 1.0 (1.0-4.8) k/uL Monocytes # 0.5 (0-1.0) k/uL Eosinophils # 0.1 (0-0.7) k/uL Basophils # 0.0 (0-0.2) k/uL Anisocytosis Slight Sodium 138 (137-145) mmol/L Potassium 4.0 (3.5-5.1) mmol/L Chloride 97 L (98-107) mmol/L Carbon Dioxide 29 (22-30) mmol/L Anion Gap 12 mmol/L BUN 40 H (7-17) mg/dL Creatinine 5.19 H (0.52-1.04) mg/dL Est GFR (CKD-EPI)AfAm 12 (>60 ml/min/1.73 sqM) Est GFR (CKD-EPI)NonAf 10 (>60 ml/min/1.73 sqM) Glucose 158 H (74-99) mg/dL Calcium 9.2 (8.4-10.2) mg/dL Disposition Clinical Impression: Hypertension, Non compliance w medication regimen Disposition: HOME SELF-CARE Condition: Good Instructions (If sedation given, give patient instructions): Hypertension (ED) Additional Instructions: It is important that you take your medications as prescribed. Please go to her hemodialysis appointment tomorrow. Is patient prescribed a controlled substance at d/c from ED?: No Referrals: Edith Cruz MD [Primary Care Provider] - 1-2 days
--- NOTE | 2021-07-15 15:51 | XR ---
EXAMINATION TYPE: XR chest 1V portable DATE OF EXAM: 07/15/2021 Comparison: 07/10/2021 Clinical History: 30-year-old female chest pain Findings: The heart appears mildly enlarged. Hazy densities relating to portable technique and overlying soft t issue. There is some mild patchy opacity at the inferior lingula. Otherwise, no consolidation or pleu ral effusion. Impression: 1. The heart appears mildly enlarged. This may be artifactual due to portable, AP technique. Further clinical correlation recommended. Consider a PA view to obtain a more accurate estimate of heart size . Otherwise, if concern for cardiac pathology, cardiac echo could be pursued. 2. Mild patchy inferior lingular atelectasis versus early infiltrate. The former is favored. Clinical ly correlate.
[2021-07-15 15:57] LABS: Anisocytosis Slight; Basophils % (A) 1 %; Eosinophils # (A) 0.1 k/uL (0-0.7); Eosinophils % (A) 1 %; HGB 8.6 gm/dL (11.4-16.0); Lymphocytes % (A) 16 %; MCH 32.3 pg (25.0-35.0); MCHC 34.3 g/dL (31.0-37.0); MCV 94.2 fL (80.0-100.0); Mean Platelet Volume 8.4; Monocytes # (A) 0.5 k/uL (0-1.0); Monocytes % (A) 8 %; Neutrophils # (A) 4.5 k/uL (1.3-7.7); Neutrophils % (A) 72 %; Platelet Count 231 k/uL (150-450); RBC 2.66 m/uL (3.80-5.40); RDW 17.6 % (11.5-15.5); WBC 6.3 k/uL (3.8-10.6)
[2021-07-15 16:13] LABS: Calcium 9.2 mg/dL (8.4-10.2)
[2021-07-15] MEDS ORDERED: METOCLOPRAMIDE 5 MG/ML 2 ML VIAL IVP STA (16:52)
[2021-07-15 17:07] VITALS: BP 166/83; PULSE 89; RESP 18; TEMP 97.8
== END 2021-07-15 17:06 | disposition home or self-care (01) ==
LOC: EC 14:41
DX: I12.0 Hypertensive chronic kidney disease with stage 5 chronic kidney disease or end stage renal disease (principal); E11.22 Type 2 diabetes mellitus with diabetic chronic kidney disease; N18.6 End stage renal disease; Z91.19 Patient's noncompliance with other medical treatment and regimen; F41.9 Anxiety disorder, unspecified; F32.A Depression, unspecified; Z79.82 Long term (current) use of aspirin; Z79.4 Long term (current) use of insulin; Z86.73 Personal history of transient ischemic attack (TIA), and cerebral infarction without residual deficits; Z90.49 Acquired absence of other specified parts of digestive tract
CPT/HCPCS: 99285; 96374; 36415; 93005; 80048; 85025; 71045; J2765

== ENCOUNTER 2021-08-02 07:28 | Inpatient (IN) | payer MEDICARE, OTHER ==
[2021-08-02] MEDS ORDERED: ACETAMINOPHEN IV (For NPO) 1,000 MG in EMPTY BAG 1 BAG IVPB STA (07:46)
[2021-08-02] MEDS ORDERED: hydrALAZINE HCL 20 MG/ML 1 ML VIAL IVP STA (07:46)
[2021-08-02] MEDS ORDERED: ACETAMINOPHEN IV (For NPO) 720 MG in EMPTY BAG 1 BAG IVPB STA (07:49)
[2021-08-02 08:20] LABS: Basophils % (A) 0 %; Eosinophils # (A) 0.2 k/uL (0-0.7); Eosinophils % (A) 4 %; HCT 34.8 % (34.0-46.0); HGB 11.5 gm/dL (11.4-16.0); Lymphocytes # (A) 0.2 k/uL (1.0-4.8); Lymphocytes % (A) 5 %; MCV 94.1 fL (80.0-100.0); Mean Platelet Volume 8.8; Monocytes # (A) 0.4 k/uL (0-1.0); Monocytes % (A) 7 %; Neutrophils # (A) 4.2 k/uL (1.3-7.7); Neutrophils % (A) 82 %; Platelet Count 261 k/uL (150-450); RDW 15.5 % (11.5-15.5); WBC 5.1 k/uL (3.8-10.6)
--- NOTE | 2021-08-02 08:21 | XR ---
EXAMINATION TYPE: XR chest 2V DATE OF EXAM: 08/02/2021 COMPARISON: Chest x-ray 07/15/2021 HISTORY: Fever, nausea vomiting and diarrhea TECHNIQUE: Frontal and lateral views of the chest are obtained. FINDINGS: There is no focal air space opacity, pleural effusion, or pneumothorax seen. The cardiac silhouette size is stable, enlarged, there is elevation of right diaphragm. Surgical clips are presen t in the upper abdomen. The osseous structures are intact. IMPRESSION: Cardiomegaly
[2021-08-02 08:29] LABS: Albumin 4.9 g/dL (3.5-5.0); Calcium 9.8 mg/dL (8.4-10.2); Phosphorus 4.8 mg/dL (2.5-4.5); Potassium 5.1 mmol/L (3.5-5.1); Total Bilirubin 1.2 mg/dL (0.2-1.3); Total Protein 8.1 g/dL (6.3-8.2)
[2021-08-02] MEDS ORDERED: METOCLOPRAMIDE 5 MG/ML 2 ML VIAL IVP STA (09:02)
[2021-08-02] MEDS ORDERED: diphenhydrAMINE 50 MG/ML 1 ML VIAL IVP STA (09:02)
--- NOTE | 2021-08-02 09:55 | CT ---
EXAMINATION TYPE: CT abdomen pelvis wo con DATE OF EXAM: 08/02/2021 COMPARISON: CT dated 10/11/2010 HISTORY: Fever, nausea, vomiting and diarrhea. CT DLP: 352 mGycm Automated exposure control for dose reduction was used. TECHNIQUE: Helical acquisition of images was performed from the lung bases through the pelvis. FINDINGS: LUNG BASES: Bilateral lower lobe groundglass opacities and dependent densities, nonspecific. Please c orrelate for pulmonary edema versus infection. Small right pleural effusion. Moderate to large perica rdial effusion. Cardiac tamponade cannot be excluded. LIVER/GB: Enlarged liver measuring 18.3 cm. Questionable periportal edema. No definite hepatic focal lesion by this nonenhanced CT scan. Previous cholecystectomy. The CBD measures 5 mm. PANCREAS: Grossly unremarkable SPLEEN: No splenic enlargement or definite lesion. Small amount of perisplenic fluid. ADRENALS: No significant abnormality is seen. KIDNEYS: Tiny bilateral nonobstructing renal calculi versus vascular calcifications. Slightly small k idneys. Unremarkable kidneys otherwise. FREE AIR: No free air is visualized ADENOPATHY: Prominent subcentimeter mesenteric and retroperitoneal lymph nodes, nonspecific. REPRODUCTIVE ORGANS: Suboptimally assessed by this nonenhanced CT scan. No gross uterine or adnexal m ass. URINARY BLADDER: Nondistended OSSEOUS STRUCTURES: No aggressive bone lesion. BOWEL: Unremarkable nondistended stomach and duodenum. Suboptimal assessment of the small and large bowel. No evidence of bowel obstruction. Questionable wall thickening of the bowel in the pelvis. Hyp erdensities are seen within the small bowel, nonspecific. Thickened rectal wall with segments of nons pecific mild colonic wall thickening. Diffuse fat stranding of the peritoneal fat with peritoneal ref lection thickening. This is most evident seen in the upper abdomen inferior to the pancreas and along the superior mesenteric vessels. Peritonitis cannot be excluded. OTHER: Minimal arterial atherosclerotic calcifications. Small amount of free pelvic fluid. Anterior abdominal wall subcutaneous fat stranding and soft tissue densities with areas of skin thick ening, please correlate for infection or recent subacute as injections. IMPRESSION: 1. Suboptimal CT scan due to lack of IV contrast administration. 2. Pericardial effusion, right pleural effusion and bilateral lower lobe groundglass opacities, pleas e correlate for cardiac tamponade, pulmonary infection or pulmonary edema. 3. Suspected hepatic periportal edema, please correlate with liver function tests and hepatic viral s erology. 4. Fat stranding in the peritoneum with prominent lymph nodes and peritoneal reflection thickening, p eritonitis cannot be excluded. This could be secondary to mild acute pancreatitis or enteritis subopt imally assessed this nonenhanced CT scan. 5. Other incidental findings as described above. The patient may benefit from enhanced CT scan.
--- NOTE | 2021-08-02 11:13 | US ---
EXAMINATION TYPE: US liver DATE OF EXAM: 08/02/2021 COMPARISON: 04/09/2021 CLINICAL HISTORY: pain, abnormal LFTS. GB removed. Pain. Patient going to start dialysis. EXAM MEASUREMENTS: Liver Length: 17.1 cm CBD: 0.5 cm Right Kidney: 6.9 x 3.0 x 3.0 cm Pancreas: Tail obscured by overlying bowel gas Liver: Upper limits of normal in size Gallbladder: Surgically absent Evidence for sonographic Mosley's sign: neg CBD: wnl Right Kidney: No hydronephrosis or masses seen. Appears small in size. IMPRESSION: 1. No definite acute process. 2. Atrophy of the right kidney correlate for chronic renal disease
[2021-08-02] MEDS ORDERED: PIPERACILLIN-TAZOBACTAM 3.375 GM in SODIUM CHLORIDE 0.9% 100 ML IVPB STA (11:57)
[2021-08-02] MEDS ORDERED: NALOXONE 0.4 MG/ML 1 ML VIAL IV PRN (12:10)
--- NOTE | 2021-08-02 12:10 | ED ---
General Adult HPI - General Chief complaint: Nausea/Vomiting/Diarrhea Stated complaint: vomiting Time Seen by Provider: 08/02/21 07:38 Source: patient, RN notes reviewed Mode of arrival: ambulatory Limitations: no limitations - History of Present Illness Initial comments: 30-year-old female presents emergency Department chief complaint of fever, nausea vomiting, cough. Patient states she's not fell over the last couple days. Patient states cannot keep anything down. Patient has type 1 diabetes with end-stage renal disease on dialysis. She is supposed to go to dialysis today. Patient states she feels achy, shivering all over. Patient states ca nnot keep any down. Patient states she is concerned that she's not been able take any of her medications. Patient denies any recent sick contacts. Patient states she has had COVID-19 in the past. Patient does make urine once today. - Related Data Home Medications Medication Instructions Recorded Confirmed Aspirin EC [Ecotrin Low Dose] 81 mg PO DAILY 04/03/21 07/10/21 Carvedilol [Coreg] 25 mg PO BID 04/03/21 07/10/21 Ergocalciferol (Vitamin D2) 1,250 mcg PO COPELAND 04/03/21 07/10/21 [Drisdol (50,000 Iu)] INSULIN LISPRO (HumaLOG) [humaLOG] See Protocol SQ AC-TID 04/03/21 07/10/21 Isosorbide Mononitrate ER [Imdur] 30 mg PO HS 04/03/21 07/10/21 Escitalopram [Lexapro] 20 mg PO DAILY 04/17/21 07/10/21 rOPINIRole HCL [Requip] 0.5 mg PO HS 04/17/21 07/10/21 Melatonin 5 - 10 mg PO HS PRN 06/29/21 07/10/21 Insulin Glargine [Lantus Vial] 10 unit SQ HS 07/10/21 07/10/21 Previous Rx's Medication Instructions Recorded Acetaminophen Tab [Tylenol] 650 mg PO Q6HR PRN #30 tab 04/09/21 amLODIPine [Norvasc] 10 mg PO DAILY 30 Days #30 tab 04/15/21 Sevelamer [Renvela] 800 mg PO TID-W/MEALS 30 Days #90 05/31/21 tab Pantoprazole Sodium [Protonix] 40 mg PO BID 30 Days #60 tab 06/04/21 Glucagon Emergency Kit 1 mg IM ONCE PRN #1 kit 06/15/21 Furosemide [Lasix] 80 mg PO BID #60 tab 07/03/21 hydrALAZINE HCL [Apresoline] 100 mg PO QID #120 tab 07/03/21 minoxidiL [Loniten] 2.5 mg PO BID #60 tab 07/03/21 cloNIDine HCL [Catapres] 0.3 mg PO TID 30 Days #90 tablet 07/12/21 Allergies Allergy/AdvReac Type Severity Reaction Status Date / Time Fish Containing Products Allergy Rash/Hives Verified 08/02/21 07:37 [Fish] iodine Allergy Anaphylaxis Verified 08/02/21 07:37 Review of Systems ROS Statement: Those systems with pertinent positive or pertinent negative responses have been documented in the HPI. ROS Other: All systems not noted in ROS Statement are negative. Past Medical History Past Medical History: CVA/TIA, Dialysis, Eye Disorder, Hypertension, Renal Disease, Seizure Disorder Additional Past Medical History / Comment(s): ESRD with hemodialysis M/W/F, IDDM type 1, DKA, neuropathy bilateral legs/feet, diabetic retinopathy/legally blind, RLS, recent hospitalizations for gastritis, severe hypokalemia, fluid retention in abdomin/legs. There is no definite diagnosis of seizure disorder History of Any Multi-Drug Resistant Organisms: None Reported Past Surgical History: Appendectomy, Section, Cholecystectomy Additional Past Surgical History / Comment(s): fistula left arm Past Anesthesia/Blood Transfusion Reactions: No Reported Reaction Past Psychological History: Anxiety, Depression Smoking Status: Never smoker Past Alcohol Use History: None Reported Past Drug Use History: None Reported - Past Family History Mother Family Medical History: Cancer, Hypertension Additional Family Medical History / Comment(s): Thyroid cancer, bipolar Father Family Medical History: Seizure Disorder Additional Family Medical History / Comment(s): Epilepsy General Exam Limitations: no limitations General appearance: alert, in no apparent distress, other (Unwell) Head exam: Present: atraumatic, normocephalic, normal inspection Eye exam: Present: normal appearance, PERRL, EOMI. Absent: scleral icterus, conjunctival injection, periorbital swelling ENT exam: Present: normal exam, mucous membranes moist Neck exam: Present: normal inspection, full ROM. Absent: tenderness, meningismus, lymphadenopathy Respiratory exam: Present: normal lung sounds bilaterally. Absent: respiratory distress, wheezes, rales, rhonchi, stridor Cardiovascular Exam: Present: normal rhythm, tachycardia, normal heart sounds. Absent: systolic murmur, diastolic murmur, rubs, gallop, clicks GI/Abdominal exam: Present: soft, tenderness, normal bowel sounds. Absent: distended, guarding, rebound, rigid Back exam: Absent: CVA tenderness (R), CVA tenderness (L) Neurological exam: Present: alert Skin exam: Present: warm, dry, intact, normal color. Absent: rash Course Vital Signs 08/02/21 08/02/21 08/02/21 07:35 08:10 08:30 Temperature 101.4 F H Pulse Rate 119 H 110 H Respiratory 24 22 Rate Blood Pressure 209/110 204/96 173/86 O2 Sat by Pulse 99 94 L Oximetry 08/02/21 10:00 Temperature 103 F H Pulse Rate Respiratory 18 Rate Blood Pressure 156/78 O2 Sat by Pulse 98 Oximetry Medical Decision Making - Medical Decision Making 30-year-old presented for fever. There is no clear source for infection other than bibasilar infiltrates, pericardial effusion. Patient does have noted transaminitis with no obvious reason possible hepatitis pending panel. Patient is end-stage renal disease on dialysis patient is receiving dialysis. Patient case discussed with . Patient we started on broad-spectrum antibiotics, blood cultures - Lab Data Result diagrams: 08/02/21 07:52 08/02/21 07:52 Lab Results 08/02/21 08/02/21 08/02/21 Range/Units 07:52 07:52 07:52 WBC 5.1 (3.8-10.6) k/uL RBC 3.70 L (3.80-5.40) m/uL Hgb 11.5 (11.4-16.0) gm/dL Hct 34.8 (34.0-46.0) % MCV 94.1 (80.0-100.0) fL MCH 31.0 (25.0-35.0) pg MCHC 33.0 (31.0-37.0) g/dL RDW 15.5 (11.5-15.5) % Plt Count 261 (150-450) k/uL MPV 8.8 Neutrophils % 82 % Lymphocytes % 5 % Monocytes % 7 % Eosinophils % 4 % Basophils % 0 % Neutrophils # 4.2 (1.3-7.7) k/uL Lymphocytes # 0.2 L (1.0-4.8) k/uL Monocytes # 0.4 (0-1.0) k/uL Eosinophils # 0.2 (0-0.7) k/uL Basophils # 0.0 (0-0.2) k/uL Sodium 139 (137-145) mmol/L Potassium 5.1 (3.5-5.1) mmol/L Chloride 99 (98-107) mmol/L Carbon Dioxide 22 (22-30) mmol/L Anion Gap 18 mmol/L BUN 44 H (7-17) mg/dL Creatinine 9.64 H* (0.52-1.04) mg/dL Est GFR (CKD-EPI)AfAm 6 (>60 ml/min/1.73 sqM) Est GFR (CKD-EPI)NonAf 5 (>60 ml/min/1.73 sqM) Glucose 142 H (74-99) mg/dL Lactic Ac Sepsis Rflx Plasma Lactic Acid Dio 3.1 H* (0.7-2.0) mmol/L Calcium 9.8 (8.4-10.2) mg/dL Phosphorus 4.8 H (2.5-4.5) mg/dL Magnesium 2.0 (1.6-2.3) mg/dL Total Bilirubin 1.2 (0.2-1.3) mg/dL AST 694 H (14-36) U/L ALT 202 H (4-34) U/L Alkaline Phosphatase 255 H (38-126) U/L Total Protein 8.1 (6.3-8.2) g/dL Albumin 4.9 (3.5-5.0) g/dL Lipase 322 H (23-300) U/L Coronavirus (PCR) (Not Detectd) Heterophile Antibody (Negative) Influenza Type A RNA (Not Detectd) Influenza Type B (PCR) (Not Detectd) 08/02/21 08/02/21 08/02/21 Range/Units 07:52 07:52 07:52 WBC (3.8-10.6) k/uL RBC (3.80-5.40) m/uL Hgb (11.4-16.0) gm/dL Hct (34.0-46.0) % MCV (80.0-100.0) fL MCH (25.0-35.0) pg MCHC (31.0-37.0) g/dL RDW (11.5-15.5) % Plt Count (150-450) k/uL MPV Neutrophils % % Lymphocytes % % Monocytes % % Eosinophils % % Basophils % % Neutrophils # (1.3-7.7) k/uL Lymphocytes # (1.0-4.8) k/uL Monocytes # (0-1.0) k/uL Eosinophils # (0-0.7) k/uL Basophils # (0-0.2) k/uL Sodium (137-145) mmol/L Potassium (3.5-5.1) mmol/L Chloride (98-107) mmol/L Carbon Dioxide (22-30) mmol/L Anion Gap mmol/L BUN (7-17) mg/dL Creatinine (0.52-1.04) mg/dL Est GFR (CKD-EPI)AfAm (>60 ml/min/1.73 sqM) Est GFR (CKD-EPI)NonAf (>60 ml/min/1.73 sqM) Glucose (74-99) mg/dL Lactic Ac Sepsis Rflx Plasma Lactic Acid Dio (0.7-2.0) mmol/L Calcium (8.4-10.2) mg/dL Phosphorus (2.5-4.5) mg/dL Magnesium (1.6-2.3) mg/dL Total Bilirubin (0.2-1.3) mg/dL AST (14-36) U/L ALT (4-34) U/L Alkaline Phosphatase (38-126) U/L Total Protein (6.3-8.2) g/dL Albumin (3.5-5.0) g/dL Lipase (23-300) U/L Coronavirus (PCR) Not Detected (Not Detectd) Heterophile Antibody Negative (Negative) Influenza Type A RNA Not Detected (Not Detectd) Influenza Type B (PCR) Not Detected (Not Detectd) 08/02/21 08/02/21 Range/Units 08:52 11:05 WBC (3.8-10.6) k/uL RBC (3.80-5.40) m/uL Hgb (11.4-16.0) gm/dL Hct (34.0-46.0) % MCV (80.0-100.0) fL MCH (25.0-35.0) pg MCHC (31.0-37.0) g/dL RDW (11.5-15.5) % Plt Count (150-450) k/uL MPV Neutrophils % % Lymphocytes % % Monocytes % % Eosinophils % % Basophils % % Neutrophils # (1.3-7.7) k/uL Lymphocytes # (1.0-4.8) k/uL Monocytes # (0-1.0) k/uL Eosinophils # (0-0.7) k/uL Basophils # (0-0.2) k/uL Sodium (137-145) mmol/L Potassium (3.5-5.1) mmol/L Chloride (98-107) mmol/L Carbon Dioxide (22-30) mmol/L Anion Gap mmol/L BUN (7-17) mg/dL Creatinine (0.52-1.04) mg/dL Est GFR (CKD-EPI)AfAm (>60 ml/min/1.73 sqM) Est GFR (CKD-EPI)NonAf (>60 ml/min/1.73 sqM) Glucose (74-99) mg/dL Lactic Ac Sepsis Rflx Y Plasma Lactic Acid Dio 1.2 (0.7-2.0) mmol/L Calcium (8.4-10.2) mg/dL Phosphorus (2.5-4.5) mg/dL Magnesium (1.6-2.3) mg/dL Total Bilirubin (0.2-1.3) mg/dL AST (14-36) U/L ALT (4-34) U/L Alkaline Phosphatase (38-126) U/L Total Protein (6.3-8.2) g/dL Albumin (3.5-5.0) g/dL Lipase (23-300) U/L Coronavirus (PCR) (Not Detectd) Heterophile Antibody (Negative) Influenza Type A RNA (Not Detectd) Influenza Type B (PCR) (Not Detectd) Critical Care Time Critical Care Time: Yes Total Critical Care Time: 35 Disposition Clinical Impression: Vomiting, ESRD (end stage renal disease) on dialysis, Hypertensive urgency, Pneumonia, Fever, Transaminitis Disposition: ADMITTED IP TO THIS HOSP Condition: Poor Referrals: None,Stated [Primary Care Provider] - 1-2 days
[2021-08-02 15:45] LABS: Hepatitis A Antibody IgM Nonreactive (Nonreactive); Hepatitis B Core IgM Nonreactive (Nonreactive); Hepatitis B Surface Antigen Nonreactive (Nonreactive); Hepatitis C IgG Antibody Nonreactive (Nonreactive)
--- NOTE | 2021-08-02 17:30 | ECHOF ---
Referral Reason:r/o tamponade, contrictive effusive pericarditis MEASUREMENTS -------- HEIGHT: 162.6 cm WEIGHT: 47.6 kg BP: IVSd: 1.7 cm (0.6 - 1.1) LVIDd: 3.2 cm (3.9 - 5.3) LVPWd: 1.9 cm (0.6 - 1.1) IVSs: 2.4 cm LVIDs: 1.2 cm LVPWs: 2.5 cm FINDINGS -------- Sinus rhythm. This was a technically adequate study. The left ventricular size is normal. There is severe concentric left ventricular hypertrophy. Ove rall left ventricular systolic function is normal with, an EF between 55 - 60 %. There is a large, generalized pericardial effusion present. The pericardium appears to be thickened . There is no evidence of cardiac tamponade. CONCLUSIONS -------- 1. The left ventricular size is normal. 2. There is severe concentric left ventricular hypertrophy. 3. Overall left ventricular systolic function is normal with, an EF between 55 - 60 %. 4. There is a large, generalized pericardial effusion present. 5. The pericardium appears to be thickened. 6. There is no evidence of cardiac tamponade. 7. Dr.Sheet britton. [employer] MEMBER: Maryjane Andrews REBECCA
[2021-08-02] MEDS: METOCLOPRAMIDE 5 MG/ML 2 ML VIAL IVP SCH ×2 (17:50→23:34)
[2021-08-02 22:12] LABS: Glucose,Whole Blood 143 mg/dL (75-99)
--- NOTE | 2021-08-02 22:12 | CONS ---
CONSULTATION REASON FOR CONSULTATION: End-stage renal disease. HISTORY OF PRESENT ILLNESS: The patient is a 30-year-old female with end-stage renal disease, on hemodialysis on a Monday, Monday, Monday schedule. Patient was admitted to the hospital with complaints of chills, nausea, vomiting and diarrhea for about two days prior to admission. Patient does have history of diabetic gastroparesis and has had multiple admissions for abdominal pain, nausea, vomiting, uncontrolled hypertension and fluid overload. She has also been admitted several times with uncontrolled diabetes and severe hyperglycemia. No complaints of cough. Patient does not have significant urine output. She did not know she had fever. In the ER, temperature was [address] of the abdomen showed significant pleural effusion as well as large pericardial effusion. Blood pressure is elevated. Currently patient is being dialyzed. Patient denies having missed any of her dialysis treatments over the last week or so. Her blood pressure has also been controlled as outpatient. PAST MEDICAL HISTORY: End-stage renal disease, CKD mineral bone disorder, hypertension, diabetes, gastroesophageal reflux disease, history of CVA/TIA, history of seizure disorder, type 1 diabetes with neuropathy. PAST SURGICAL HISTORY: Appendectomy, , cholecystectomy, left arm AV fistula. SOCIAL HISTORY: Negative for smoking, drug abuse or alcohol abuse. MEDICATIONS: Medications prior to admission included clonidine, minoxidil, hydralazine, Lasix, Protonix, Renvela, Norvasc, Tylenol, insulin, melatonin, Requip, Lexapro, Coreg, aspirin, vitamin D. REVIEW OF SYSTEMS: As per HPI. Other systems negative. PHYSICAL EXAMINATION: Patient is currently comfortable, not in any acute distress. She is receiving dialysis. Blood pressure is 156/78, heart rate of 104 per minute, temperature 103 degrees Fahrenheit. Examination of the heart: S1, S2. Examination of the lungs: Bilateral breath sounds are heard. Abdomen is soft, nontender. Examination of lower extremities shows no significant edema. MOTOR VEHICLE INSPECTOR exam grossly intact. LABS: Sodium 139, potassium 5.1, hemoglobin of 11.5, BUN 44, creatinine 9.6. Lactic acid was 3.1. ASSESSMENT: 1. End stage renal disease, on hemodialysis on a Monday, Monday, Monday schedule. 2. Volume overload with large large pericardial effusion with no evidence of cardiac tamponade. Patient also has a pleural effusion. 3. Fever, possibly related to gastroenteritis. 4. Pericardial effusion, most likely associated with volume overload. Need to also consider uremic pericarditis, although patient has not missed any of her treatments as outpatient. 5. Lactic acidosis, currently improved. 6. Diarrhea and vomiting; possibly underlying gastroenteritis. 7. Chronic kidney disease mineral bone disorder. 8. Uncontrolled hypertension, partly volume-sensitive. PLAN: Repeat dialysis in a.m. Follow up on the echocardiogram report. Currently patient is hemodynamically stable. No evidence of cardiac tamponade. Thank you for this consultation. Will continue to follow the patient with you during her hospitalization. MMODL / IJN: [id number] /
[2021-08-02] MEDS ORDERED: hydrALAZINE HCL 50 MG TAB PO SCH (23:00)
--- NOTE | 2021-08-02 23:13 | P.CONS ---
History of Present Illness - Reason for Consult Consult date: 08/02/21 Fever Requesting physician: Williams E Sheet - Chief Complaint Vomiting diarrhea and fever 1 day - History of Present Illness Patient is a 30-year female with a past medical history significant for end-stage renal disease on hemodialysis to the left arm AV fistula patient is presenting to the ER with 1 day history of nausea vomiting diarrhea the patient denies having any abdominal pain patient mention has not been feeling well for the last few days and the main symptom has been unable to keep anything down the patient has been complaining of feeling achy and shivering all over with the symptoms the patient was evaluated by ER physician on arrival to the ER patient did have a fever of 103 F patient did not have significant tachycardia and not hypoxic and no need for supplemental oxygen patient did have a normal white count did have mild lymphopenia BUN and creatinine has been elevated liver enzymes are elevated patient did have a negative Covid testing influenza was negative and hepatitis panel was negative patient did have a chest x-ray which shows cardiomegaly CT of abdominal pelvis suboptimal studies pericardial effusion with right pleural effusion suspected hepatic periportal edema fat stranding in the peritoneum with abdominal lymph nodes that are dissected out be excluded concern for mild acute pancreatitis or enteritis patient was started on Zosyn infectious disease was consulted for further management of the fever Review of Systems Positive point has been mentioned in the HPI rest of the systems are negative Past Medical History Past Medical History: CVA/TIA, Dialysis, Eye Disorder, Hypertension, Renal Disease, Seizure Disorder Additional Past Medical History / Comment(s): ESRD with hemodialysis M/W/F, IDDM type 1, DKA, neuropathy bilateral legs/feet, diabetic retinopathy/legally blind, RLS, gastritis, severe hypokalemia, fluid retention in abdomin/legs. There is no definite diagnosis of seizure disorder History of Any Multi-Drug Resistant Organisms: None Reported Past Surgical History: Appendectomy, Section, Cholecystectomy Additional Past Surgical History / Comment(s): fistula left arm Past Anesthesia/Blood Transfusion Reactions: No Reported Reaction Smoking Status: Never smoker - Past Family History Mother Family Medical History: Cancer, Hypertension Additional Family Medical History / Comment(s): Thyroid cancer, bipolar Father Family Medical History: Seizure Disorder Additional Family Medical History / Comment(s): Epilepsy Medications and Allergies Home Medications Medication Instructions Recorded Confirmed Type Aspirin EC [Ecotrin Low Dose] 81 mg PO DAILY 04/03/21 08/02/21 History Carvedilol [Coreg] 25 mg PO BID 04/03/21 08/02/21 History Ergocalciferol (Vitamin D2) 1,250 mcg PO COPELAND 04/03/21 08/02/21 History [Drisdol (50,000 Iu)] Isosorbide Mononitrate ER [Imdur] 30 mg PO HS 04/03/21 08/02/21 History Acetaminophen Tab [Tylenol] 650 mg PO Q6HR PRN #30 tab 04/09/21 08/02/21 Rx amLODIPine [Norvasc] 10 mg PO DAILY 30 Days #30 tab 04/15/21 08/02/21 Rx Escitalopram [Lexapro] 20 mg PO DAILY 04/17/21 08/02/21 History rOPINIRole HCL [Requip] 0.5 mg PO HS 04/17/21 08/02/21 History Sevelamer [Renvela] 800 mg PO TID-W/MEALS 30 Days #90 05/31/21 08/02/21 Rx tab Pantoprazole Sodium [Protonix] 40 mg PO BID 30 Days #60 tab 06/04/21 08/02/21 Rx Glucagon Emergency Kit 1 mg IM ONCE PRN #1 kit 06/15/21 08/02/21 Rx Melatonin 5 - 10 mg PO HS PRN 06/29/21 08/02/21 History Furosemide [Lasix] 80 mg PO BID #60 tab 07/03/21 08/02/21 Rx hydrALAZINE HCL [Apresoline] 100 mg PO QID #120 tab 07/03/21 08/02/21 Rx minoxidiL [Loniten] 2.5 mg PO BID #60 tab 07/03/21 08/02/21 Rx Insulin Glargine [Lantus Vial] 10 unit SQ HS 07/10/21 08/02/21 History cloNIDine HCL [Catapres] 0.3 mg PO TID 30 Days #90 tablet 07/12/21 08/02/21 Rx Insulin Lispro [humaLOG Kwikpen] See Protocol SQ AC-TID 08/02/21 08/02/21 History Allergies Allergy/AdvReac Type Severity Reaction Status Date / Time Fish Containing Products Allergy Rash/Hives Verified 08/02/21 12:46 [Fish] iodine Allergy Anaphylaxis Verified 08/02/21 12:46 Physical Exam Vitals: Vital Signs Temp Pulse Resp BP Pulse Ox 08/02/21 10:00 103 F H 18 156/78 98 08/02/21 08:30 173/86 08/02/21 08:10 110 H 22 204/96 94 L 08/02/21 07:35 101.4 F H 119 H 24 209/110 99 Intake and Output 08/02/21 08/02/21 08/02/21 06:59 14:59 22:59 Output Total 3000 Balance -3000 Output: Hemodialysis 3000 Other: Weight 47.627 kg GENERAL DESCRIPTION: Middle-aged female lying in bed, no distress. No tachypnea or accessory muscle of respiration use. HEENT: Shows Pallor , no scleral icterus. Oral mucous membrane is dry. No pharyngeal erythema or thrush NECK: Trachea central, no thyromegaly. LUNGS: Unlabored breathing. Decreased breath sound the bases. No wheeze or crackle. HEART: S1, S2, regular rate and rhythm. No loud murmur ABDOMEN: Soft, no tenderness , guarding or rigidity, no organomegaly EXTREMITIES: No edema of feet. SKIN: No rash, no masses palpable. NEUROLOGICAL: The patient is awake, alert, oriented x3, mood and affect normal. Results CBC & Chem 7: 08/02/21 07:52 08/02/21 07:52 Labs: Abnormal Lab Results - Last 24 Hours (Table) 08/02/21 08/02/21 08/02/21 Range/Units 07:52 07:52 07:52 RBC 3.70 L (3.80-5.40) m/uL Lymphocytes # 0.2 L (1.0-4.8) k/uL BUN 44 H (7-17) mg/dL Creatinine 9.64 H* (0.52-1.04) mg/dL Glucose 142 H (74-99) mg/dL Plasma Lactic Acid Dio 3.1 H* (0.7-2.0) mmol/L Phosphorus 4.8 H (2.5-4.5) mg/dL AST 694 H (14-36) U/L ALT 202 H (4-34) U/L Alkaline Phosphatase 255 H (38-126) U/L Lipase 322 H (23-300) U/L Assessment and Plan (1) Fever Current Visit: Yes Status: Acute Code(s): R50.9 - FEVER, UNSPECIFIED SNOMED Code(s): 931876636 Plan: 1patient presented to hospital with acute vomiting diarrhea and did have a fever and this patient did have abnormal CT abdominal pelvis with evidence of possible pericardial effusion and tamponade phenomena for which cardiology has been consulted patient also have elevated liver enzymes however the patient have a normal white count with lymphopenia concerning for possible viral syndrome. 2initial viral testing including Covid influenza and hepatitis panel has been negative. 3we will check EBV and CMV serology. 4continue with empiric Zosyn while waiting for the work-up to be completed 5we will obtain stool studies We will follow on clinical condition and cultures to further adjust medication if needed Thank you for this consultation will follow this patient along with you Time with Patient: Greater than 30
[2021-08-02] MEDS: cloNIDine HCL 0.1 MG TAB PO SCH (23:33)
[2021-08-02] MEDS: ASPIRIN 81 MG PO SCH (23:33)
[2021-08-02] MEDS: hydrALAZINE HCL 25 MG TAB PO SCH (23:33)
[2021-08-02] MEDS: PANTOPRAZOLE 40 MG TABLET PO SCH (23:33)
[2021-08-02] MEDS: ISOSORBIDE MONONITRATE ER 30 MG TAB.ER.24H PO SCH (23:33)
[2021-08-02] MEDS: carvediloL 12.5 MG TAB PO SCH (23:34)
[2021-08-02] MEDS: MELATONIN 5 MG TABLET PO PRN (23:34)
[2021-08-02] MEDS: amLODIPine 10 MG TAB PO SCH (23:34)
[2021-08-02] MEDS: INSULIN DETEMIR (LEVEMIR) 100 UNIT/ML SYR SQ SCH (23:34)
[2021-08-02] MEDS: ACETAMINOPHEN TAB 325 MG TAB PO PRN (23:35)
[2021-08-02] MEDS ORDERED: hydrALAZINE HCL 20 MG/ML 1 ML VIAL IVP PRN (23:48)
[2021-08-03] MEDS: PIPERACILLIN-TAZOBACTAM 3.375 GM in SODIUM CHLORIDE 0.9% 100 ML IVPB SCH ×3 (00:17→21:19)
--- NOTE | 2021-08-03 00:32 | P.HPIM ---
History of Present Illness This is a pleasant 30 his CVA/TIA, Dialysis, Eye Disorder, Hypertension, Renal Disease, Seizure Disorder, ESRD with hemodialysis M/W/F, IDDM type 1, DKA, neuropathy bilateral legs/feet, diabetic retinopathy/legally blind, RLS, gastritis, severe hypokalemia, fluid retention in abdomin/legs. Patient presents because of vomiting frequently more than 1 cm hour, with diarrhea every 30 minutes as she describes. No blood in the vomiting or diarrhea which is watery. No abdominal pain and abdomen soft, she has some chest pain since yesterday the middle about 60/10 and she says is similar to blood pressure elevation before. Blood pressure on admission was elevated about 200/more than 100. No dyspnea but little dry cough. Little headache because of high blood pressure 6/10, no dizziness or weakness or numbness, she makes little urine with no dysuria. She denies smoking, alcohol or illicit drugs. She does not have PCP On admission patient has a fever off 103. rest of vitals looks stable, blood p ressure is elevated on admission 209/110, currently better controlled with SBP 150s to 160s. CBC is unremarkable elevated creatinine as patient is hemodialysis patient. Lactic acid came back to normal at 1.2, glucose control. AST elevated 694 and ALT 202, bilirubin is normal at 1.2. Lipase 322. HCG is negative Viral panel was negative including coronavirus, hepatitis panel, influenza virus. As well as heterophile antibody. Chest x-ray showed cardiomegaly CT of the abdomen and pelvis showing pericardial effusion with possible pericardial tamponade Suspect hepatic periportal edema, please correlate with liver function test and hepatic viral serology. Fat stranding in the peritoneal with prominent lymph nodes and peritoneal reflection thickening peritonitis cannot exclude it. This could be secondary to mild acute pancreatitis or enteritis. Liver ultrasound: No acute process. Gallbladder surgically absent. Kidney atrophy Past Medical History Past Medical History: CVA/TIA, Dialysis, Eye Disorder, Hypertension, Renal Disease, Seizure Disorder Additional Past Medical History / Comment(s): ESRD with hemodialysis M/W/F, IDDM type 1, DKA, neuropathy bilateral legs/feet, diabetic retinopathy/legally blind, RLS, gastritis, severe hypokalemia, fluid retention in abdomin/legs. There is no definite diagnosis of seizure disorder History of Any Multi-Drug Resistant Organisms: None Reported Past Surgical History: Appendectomy, Section, Cholecystectomy Additional Past Surgical History / Comment(s): fistula left arm Past Anesthesia/Blood Transfusion Reactions: No Reported Reaction Smoking Status: Never smoker - Past Family History Mother Family Medical History: Cancer, Hypertension Additional Family Medical History / Comment(s): Thyroid cancer, bipolar Father Family Medical History: Seizure Disorder Additional Family Medical History / Comment(s): Epilepsy Medications and Allergies Home Medications Medication Instructions Recorded Confirmed Type Aspirin EC [Ecotrin Low Dose] 81 mg PO DAILY 04/03/21 08/02/21 History Carvedilol [Coreg] 25 mg PO BID 04/03/21 08/02/21 History Ergocalciferol (Vitamin D2) 1,250 mcg PO COPELAND 04/03/21 08/02/21 History [Drisdol (50,000 Iu)] Isosorbide Mononitrate ER [Imdur] 30 mg PO HS 04/03/21 08/02/21 History Acetaminophen Tab [Tylenol] 650 mg PO Q6HR PRN #30 tab 04/09/21 08/02/21 Rx amLODIPine [Norvasc] 10 mg PO DAILY 30 Days #30 tab 04/15/21 08/02/21 Rx Escitalopram [Lexapro] 20 mg PO DAILY 04/17/21 08/02/21 History rOPINIRole HCL [Requip] 0.5 mg PO HS 04/17/21 08/02/21 History Sevelamer [Renvela] 800 mg PO TID-W/MEALS 30 Days #90 05/31/21 08/02/21 Rx tab Pantoprazole Sodium [Protonix] 40 mg PO BID 30 Days #60 tab 06/04/21 08/02/21 Rx Glucagon Emergency Kit 1 mg IM ONCE PRN #1 kit 06/15/21 08/02/21 Rx Melatonin 5 - 10 mg PO HS PRN 06/29/21 08/02/21 History Furosemide [Lasix] 80 mg PO BID #60 tab 07/03/21 08/02/21 Rx hydrALAZINE HCL [Apresoline] 100 mg PO QID #120 tab 07/03/21 08/02/21 Rx minoxidiL [Loniten] 2.5 mg PO BID #60 tab 07/03/21 08/02/21 Rx Insulin Glargine [Lantus Vial] 10 unit SQ HS 07/10/21 08/02/21 History cloNIDine HCL [Catapres] 0.3 mg PO TID 30 Days #90 tablet 07/12/21 08/02/21 Rx Insulin Lispro [humaLOG Kwikpen] See Protocol SQ AC-TID 08/02/21 08/02/21 History Allergies Allergy/AdvReac Type Severity Reaction Status Date / Time Fish Containing Products Allergy Rash/Hives Verified 08/02/21 12:46 [Fish] iodine Allergy Anaphylaxis Verified 08/02/21 12:46 Physical Exam Vitals: Vital Signs Temp Pulse Resp BP Pulse Ox 08/02/21 10:00 103 F H 18 156/78 98 08/02/21 08:30 173/86 08/02/21 08:10 110 H 22 204/96 94 L 08/02/21 07:35 101.4 F H 119 H 24 209/110 99 Intake and Output 08/01/21 08/02/21 08/02/21 22:59 06:59 14:59 Other: Weight 47.627 kg GENERAL: The patient is alert and oriented x3, not in any acute distress. Well developed, well nourished. -HEENT: Pupils are round and equally reacting to light. EOMI. No scleral icterus. No conjunctival pallor. Normocephalic, atraumatic. No pharyngeal erythema. No thyromegaly. legally blind CARDIOVASCULAR: S1 and S2 present. No murmurs, rubs, or gallops. PULMONARY: Chest is clear to auscultation, no wheezing or crackles. ABDOMEN: Soft, nontender, nondistended, normoactive bowel sounds. No palpable organomegaly. MUSCULOSKELETAL: No joint swelling or deformity. EXTREMITIES: No cyanosis, clubbing, or pedal edema. NEUROLOGICAL: Gross neurological examination did not reveal any focal deficits. SKIN: No rashes. no petechiae. Results CBC & Chem 7: 08/02/21 07:52 08/02/21 07:52 Labs: Abnormal Lab Results - Last 24 Hours (Table) 08/02/21 08/02/21 08/02/21 Range/Units 07:52 07:52 07:52 RBC 3.70 L (3.80-5.40) m/uL Lymphocytes # 0.2 L (1.0-4.8) k/uL BUN 44 H (7-17) mg/dL Creatinine 9.64 H* (0.52-1.04) mg/dL Glucose 142 H (74-99) mg/dL Plasma Lactic Acid Ido 3.1 H* (0.7-2.0) mmol/L Phosphorus 4.8 H (2.5-4.5) mg/dL AST 694 H (14-36) U/L ALT 202 H (4-34) U/L Alkaline Phosphatase 255 H (38-126) U/L Lipase 322 H (23-300) U/L Thrombosis Risk Factor Assmnt - Choose All That Apply Any of the Below Risk Factors Present?: Yes Each Factor Represents 1 point: Serious lung disease incl. pneumonia (< 1month) Other Risk Factors: No Other congenital or acquired thrombophilia - If yes, enter type in comment: No Thrombosis Risk Factor Assessment Total Risk Factor Score: 1 Thrombosis Risk Factor Assessment Level: Low Risk Assessment and Plan Assessment: Pericardial effusion with possible tamponade and Sepsis with fever Elevated liver enzymes End-stage renal disease on hemodialysis Hypertension with urgency on admission History of seizure disorder Insulin-dependent diabetes mellitus Diabetic neuropathy Diabetic retinopathy, patient is legally blind. Restless leg syndrome History of gastritis History of severe hypokalemia History of fluid retention of the abdomen and legs Plan: This is a pleasant 30 years old female who presents with pericardial effusion and possible tamponade and high fever. ESDR on hemodialysis I discussed the case with metal coater operator Dr. Downs and he recommended to rule out temporal not, therefore cardiothoracic surgery team were consulted. Patient currently kept on Zosyn, infectious disease team on the case, viral infection is suspected. Abstract Writer on the case for dialysis Monitor blood pressure closely and continue with antihypertensive medication Labs and medication were reviewed.. Continue same treatment. Continue with symptomatic treatment. Resume home medication. Monitor lytes and vitals. DVT and GI prophylaxis. Further recommendations as per clinical course of the patient pognosis is guarded
[2021-08-03 06:05] LABS: Glucose,Whole Blood 360 mg/dL (75-99)
[2021-08-03] MEDS: METOCLOPRAMIDE 5 MG/ML 2 ML VIAL IVP SCH (06:15)
[2021-08-03] MEDS: INSULIN ASPART (NovoLOG) 100 UNIT/ML VIAL SQ SCH ×5 (06:15→21:28)
[2021-08-03] MEDS: PANTOPRAZOLE 40 MG TABLET PO SCH ×2 (06:15→17:10)
--- NOTE | 2021-08-03 07:43 | P.CRDCN ---
History of Present Illness Consult date: 08/03/21 Consult reason: other (pericardial effusion) History of present illness: 50-year-old lady with end-stage renal disease on hemodialysis hypertension insulin-requiring diabetes presented to hospital with symptoms of nausea vomiting and diarrhea. She had febrile illness. She underwent a computed tomography scan of the abdomen that showed pericardial effusion due to which cardiology had been consulted. Patient does not have chest pain difficulty in breathing dizziness or syncope. She is chronic mild bilateral leg edema and receives hemodialysis on a regular basis. She is legally blind secondary to diabetic retinopathy. There is no prior h istory of coronary artery disease or congestive heart failure. An echocardiogram that was performed on this admission shows large pericardial effusion without any evidence of tamponade. Patient had an echo done in May of this CN that revealed a small pericardial effusion. We will monitor her pericardial effusion both clinically and with echocardiogram throughout her hospitalization. If and when she develops tamponade physiology she will need a pericardial window. Constitutional: Denies chills. Significant for fever Eyes: Denies blurred vision. Denies pain. Ears, nose, mouth and throat: Denies headache. Denies sore throat. Cardiovascular: Denies chest pain. Denies shortness of breath. Respiratory: Denies cough. Gastrointestinal: Significant for nausea vomiting diarrhea Musculoskeletal: Denies myalgias. Integumentary: Denies pruritus. Denies rash. Neurological: Denies numbness. Denies weakness. Psychiatric: Denies anxiety. Denies depression. Endocrine: Denies fatigue. Denies weight change. Genitourinary: Denies burning, hematuria, frequency of urination. Significant for end-stage renal disease Hematological: No anemia or excess bleeding. General: The patient is awake and alert, in no distress, and does not appear acutely ill. Skin: Skin is warm and dry and no rashes or lesions are noted. Eye: Blind bilaterally Ears, nose, mouth and throat: There are moist mucous membranes and no oral lesions. Neck: The neck is supple, there is no tenderness or JVD. Cardiovascular: [ There is a regular rate and rhythm.] Grade 3 x 6 systolic murmur at the apex Respiratory: Lungs are clear to auscultation, respirations are non-labored, breath sounds are equal. Gastrointestinal: Soft, non-distended, non-tender abdomen without masses or organomegaly noted. There is no rebound or guarding present. Bowel sounds are unremarkable. Back: There is no tenderness to palpation in the midline. There is no obvious deformity. Musculoskeletal: Normal ROM, no tenderness, There is no pedal edema. There is no calf tenderness or swelling. Extremities:[ No edema.] Vascular: [Femoral pulse is normal.][ Posterior tibial pulses are normal .][Dorsalis pedis is palpable.] Neurological: CN II-XII intact. There are no obvious motor or sensory deficits. Speech is normal. Psychiatric: Cooperative, appropriate mood & affect, normal judgment. Assessment and plan: Large pericardial effusion Nausea vomiting diarrhea Hypertensive heart disease End-stage renal disease on hemodialysis Patient is currently not in a not in [place] not clinically. Continue current workup please do blood cultures I will follow the patient with interest Past Medical History Past Medical History: CVA/TIA, Dialysis, Eye Disorder, Hypertension, Renal Disease, Seizure Disorder Additional Past Medical History / Comment(s): ESRD with hemodialysis M/W/F, IDDM type 1, DKA, neuropathy bilateral legs/feet, diabetic retinopathy/legally blind, RLS, gastritis, severe hypokalemia, fluid retention in abdomin/legs. There is no definite diagnosis of seizure disorder History of Any Multi-Drug Resistant Organisms: None Reported Past Surgical History: Appendectomy, Section, Cholecystectomy Additional Past Surgical History / Comment(s): fistula left arm Past Anesthesia/Blood Transfusion Reactions: No Reported Reaction Smoking Status: Never smoker - Past Family History Mother Family Medical History: Cancer, Hypertension Additional Family Medical History / Comment(s): Thyroid cancer, bipolar Father Family Medical History: Seizure Disorder Additional Family Medical History / Comment(s): Epilepsy Medications and Allergies Home Medications Medication Instructions Recorded Confirmed Type Aspirin EC [Ecotrin Low Dose] 81 mg PO DAILY 04/03/21 08/02/21 History Carvedilol [Coreg] 25 mg PO BID 04/03/21 08/02/21 History Ergocalciferol (Vitamin D2) 1,250 mcg PO COPELAND 04/03/21 08/02/21 History [Drisdol (50,000 Iu)] Isosorbide Mononitrate ER [Imdur] 30 mg PO HS 04/03/21 08/02/21 History Acetaminophen Tab [Tylenol] 650 mg PO Q6HR PRN #30 tab 04/09/21 08/02/21 Rx amLODIPine [Norvasc] 10 mg PO DAILY 30 Days #30 tab 04/15/21 08/02/21 Rx Escitalopram [Lexapro] 20 mg PO DAILY 04/17/21 08/02/21 History rOPINIRole HCL [Requip] 0.5 mg PO HS 04/17/21 08/02/21 History Sevelamer [Renvela] 800 mg PO TID-W/MEALS 30 Days #90 05/31/21 08/02/21 Rx tab Pantoprazole Sodium [Protonix] 40 mg PO BID 30 Days #60 tab 06/04/21 08/02/21 Rx Glucagon Emergency Kit 1 mg IM ONCE PRN #1 kit 06/15/21 08/02/21 Rx Melatonin 5 - 10 mg PO HS PRN 06/29/21 08/02/21 History Furosemide [Lasix] 80 mg PO BID #60 tab 07/03/21 08/02/21 Rx hydrALAZINE HCL [Apresoline] 100 mg PO QID #120 tab 07/03/21 08/02/21 Rx minoxidiL [Loniten] 2.5 mg PO BID #60 tab 07/03/21 08/02/21 Rx Insulin Glargine [Lantus Vial] 10 unit SQ HS 07/10/21 08/02/21 History cloNIDine HCL [Catapres] 0.3 mg PO TID 30 Days #90 tablet 07/12/21 08/02/21 Rx Insulin Lispro [humaLOG Kwikpen] See Protocol SQ AC-TID 08/02/21 08/02/21 History Allergies Allergy/AdvReac Type Severity Reaction Status Date / Time Fish Containing Products Allergy Rash/Hives Verified 08/02/21 12:46 [Fish] iodine Allergy Anaphylaxis Verified 08/02/21 12:46 Physical Exam Vitals: Vital Signs Temp Pulse Pulse Resp BP BP Pulse Ox 08/03/21 04:45 98.1 F 84 18 111/52 94 L 08/03/21 02:47 102/50 08/03/21 02:00 99.0 F 08/03/21 01:14 101/55 08/02/21 23:30 100.6 F H 90 16 220/105 97 08/02/21 22:06 100.2 F H 91 16 203/95 95 03/07/22 20:30 101.1 F H 90 16 180/83 96 08/02/21 17:51 91 16 160/90 96 08/02/21 10:00 103 F H 18 156/78 98 08/02/21 08:30 173/86 08/02/21 08:10 110 H 22 204/96 94 L Intake and Output 08/02/21 08/03/21 08/03/21 22:59 06:59 14:59 Output Total 3000 Balance -3000 Output: Hemodialysis 3000 Other: # Voids 0 # Bowel Movements 1 Results 08/02/21 07:52 08/02/21 07:52 Cardiac Enzymes 08/02/21 Range/Units 07:52 AST 694 H (14-36) U/L CBC 08/02/21 Range/Units 07:52 WBC 5.1 (3.8-10.6) k/uL RBC 3.70 L (3.80-5.40) m/uL Hgb 11.5 (11.4-16.0) gm/dL Hct 34.8 (34.0-46.0) % Plt Count 261 (150-450) k/uL Comprehensive Metabolic Panel 08/02/21 Range/Units 07:52 Sodium 139 (137-145) mmol/L Potassium 5.1 (3.5-5.1) mmol/L Chloride 99 (98-107) mmol/L Carbon Dioxide 22 (22-30) mmol/L BUN 44 H (7-17) mg/dL Creatinine 9.64 H* (0.52-1.04) mg/dL Glucose 142 H (74-99) mg/dL Calcium 9.8 (8.4-10.2) mg/dL AST 694 H (14-36) U/L ALT 202 H (4-34) U/L Alkaline Phosphatase 255 H (38-126) U/L Total Protein 8.1 (6.3-8.2) g/dL Albumin 4.9 (3.5-5.0) g/dL Current Medications Generic Name Dose Route Start Last Admin Trade Name Freq PRN Reason Stop Dose Admin Acetaminophen 650 mg 08/02/21 22:46 08/02/21 23:35 Acetaminophen Tab 325 Mg Tab PO 650 mg Q6HR PRN Administration Fever and/ or Pain Amlodipine Besylate 10 mg 08/02/21 23:00 08/02/21 23:34 Amlodipine 10 Mg Tab PO 10 mg HS CHAD Administration Aspirin 81 mg 08/02/21 23:00 08/02/21 23:33 Aspirin 81 Mg PO 81 mg DAILY CHAD Administration Carvedilol 25 mg 08/02/21 23:00 08/02/21 23:34 Carvedilol 12.5 Mg Tab PO 25 mg BID CHAD Administration Clonidine 0.3 mg 08/02/21 23:00 08/02/21 23:33 Clonidine Hcl 0.1 Mg Tab PO 0.3 mg TID CHAD Administration Escitalopram Oxalate 20 mg 08/03/21 09:00 Escitalopram 20 Mg Tab PO DAILY [facility]AD Hydralazine HCl 75 mg 08/02/21 23:00 08/02/21 23:33 Hydralazine Hcl 25 Mg Tab PO 75 mg TID CHAD Administration Hydralazine HCl 10 mg 08/02/21 23:48 Hydralazine Hcl 20 Mg/Ml 1 Ml Vial IVP Q6HR PRN Blood Pressure - High Piperacillin Sod/Tazobactam 100 mls @ 25 mls/hr 08/03/21 00:00 08/03/21 00:17 Sod 3.375 gm/ Sodium Chloride IVPB 25 mls/hr Q8HR [facility] Administration Protocol Insulin Aspart 0 unit 08/03/21 07:30 08/03/21 06:15 Insulin Aspart (Novolog) 100 Unit/Ml Vial SQ 6 unit ACHS [facility] Administration Protocol Insulin Detemir 10 unit 08/02/21 23:00 08/02/21 23:34 Insulin Detemir (Levemir) 100 Unit/Ml Syr SQ Not Given HS [facility]AD Isosorbide Mononitrate 30 mg 08/02/21 23:00 08/02/21 23:33 Isosorbide Mononitrate Er 30 Mg Tab.Er.24h PO 30 mg HS [facility]AD Administration Melatonin 5 mg 08/02/21 22:46 08/02/21 23:34 Melatonin 5 Mg Tablet PO 5 mg HS PRN Administration Insomnia Metoclopramide HCl 10 mg 08/02/21 18:00 08/03/21 06:15 Metoclopramide 5 Mg/Ml 2 Ml Vial IVP 10 mg Q6HR [facility] Administration Minoxidil 2.5 mg 08/03/21 09:00 Minoxidil 2.5 Mg Tab PO BID [facility]AD Naloxone HCl 0.2 mg 08/02/21 12:10 Naloxone 0.4 Mg/Ml 1 Ml Vial IV Q2M PRN Opioid Reversal Pantoprazole Sodium 40 mg 08/02/21 23:00 08/03/21 06:15 Pantoprazole 40 Mg Tablet PO 40 mg AC-BID [facility]AD Administration Ropinirole HCl 0.5 mg 08/02/21 23:00 08/02/21 23:33 Ropinirole Hcl 0.25 Mg Tab PO 0.5 mg HS [facility]AD Administration Sevelamer Carbonate 800 mg 08/03/21 07:30 Sevelamer 800 Mg Tab PO TID-W/MEALS [facility] Intake and Output 08/02/21 08/03/21 08/03/21 22:59 06:59 14:59 Output Total 3000 Balance -3000 Output: Hemodialysis 3000 Other: # Voids 0 # Bowel Movements 1 08/02/21 07:52 08/02/21 07:52
[2021-08-03] MEDS: hydrALAZINE HCL 25 MG TAB PO SCH ×3 (09:13→21:18)
[2021-08-03] MEDS: cloNIDine HCL 0.1 MG TAB PO SCH (09:13)
[2021-08-03] MEDS: carvediloL 12.5 MG TAB PO SCH ×2 (09:14→21:19)
[2021-08-03] MEDS: ASPIRIN 81 MG PO SCH (09:14)
[2021-08-03] MEDS: ESCITALOPRAM 20 MG TAB PO SCH (09:14)
[2021-08-03] MEDS: SEVELAMER 800 MG TAB PO SCH ×3 (09:15→17:10)
[2021-08-03] MEDS: minoxidiL 2.5 MG TAB PO SCH ×2 (09:20→21:39)
[2021-08-03 09:30] LABS: Basophils % (A) 1 %; Eosinophils % (A) 1 %; HCT 29.3 % (34.0-46.0); Lymphocytes # (A) 0.5 k/uL (1.0-4.8); Lymphocytes % (A) 16 %; MCH 31.3 pg (25.0-35.0); MCHC 32.5 g/dL (31.0-37.0); MCV 96.1 fL (80.0-100.0); Mean Platelet Volume 9.5; Monocytes # (A) 0.2 k/uL (0-1.0); Monocytes % (A) 6 %; Neutrophils # (A) 2.4 k/uL (1.3-7.7); Neutrophils % (A) 73 %; Platelet Count 169 k/uL (150-450); RBC 3.05 m/uL (3.80-5.40); RDW 14.6 % (11.5-15.5); WBC 3.3 k/uL (3.8-10.6)
[2021-08-03 09:33] LABS: HGB 9.5 gm/dL (11.4-16.0)
[2021-08-03 09:35] LABS: Albumin 3.4 g/dL (3.5-5.0); Calcium 9.2 mg/dL (8.4-10.2); Potassium 4.9 mmol/L (3.5-5.1); Total Bilirubin 0.6 mg/dL (0.2-1.3); Total Protein 5.8 g/dL (6.3-8.2)
--- NOTE | 2021-08-03 10:01 | P.GSCN ---
<Chayo Paulino - Last Filed: 08/03/21 10:00> History of Present Illness Consult date: 08/03/21 Reason for Consult: Pericardial effusion Requesting physician: Williams E Sheet History of present illness: This is a 30-year-old female patient who does not follow with a primary care physician on an outpatient basis. She has a previous medical history of hypertension, type 1 diabetes with history of DKA and associated retinopathy and neuropathy, end-stage renal disease on dialysis Monday/Monday/Monday, CVA/TIA, Covid diagnosis in May 2021, anxiety/depression, and never smoker. She presented to [facility] emergency room with complaints of nausea/vomiting/diarrhea/fever for a couple of days, and in fact has been able to keep any food down. Lab work demonstrated WBC 5.1, hemoglobin 11.5, BUN 44, creatinine 9.64, lactic acid 3.1, AST 694, a LT 202, lipase 322. Chest x-ray demonstrated cardiomegaly. CT of the abdomen and pelvis demonstrated a pericardial effusion along with right-sided pleural effusion, hepatic periportal edema, possible peritonitis. The patient was admitted for evaluation and treatment with consultation placed to nephrology, infectious disease, cardiology. Transthoracic echocardiogram was completed which confirmed a large generalized pericardial effusion without tamponade physiology. Due to this finding consultation was placed to Dr. Samayoa from cardiothoracic surgery for recommendations. Review of Systems Review of systems was completed and was negative except as noted - Constitutional Reports as per HPI, Reports anorexia, Reports fever - Gastrointestinal Reports as per HPI, Reports diarrhea, Reports nausea, Reports vomiting Past Medical History Past Medical History: CVA/TIA, Dialysis, Eye Disorder, Hypertension, Renal Disease Additional Past Medical History / Comment(s): ESRD with hemodialysis M/W/F, IDDM type 1, DKA, neuropathy bilateral legs/feet, diabetic retinopathy/legally blind, RLS, gastritis, severe hypokalemia, fluid retention in abdomin/legs. History of Any Multi-Drug Resistant Organisms: None Reported Past Surgical History: Appendectomy, Section, Cholecystectomy Additional Past Surgical History / Comment(s): fistula left arm Past Anesthesia/Blood Transfusion Reactions: No Reported Reaction Smoking Status: Never smoker Past Alcohol Use History: None Reported Past Drug Use History: None Reported - Past Family History Mother Family Medical History: Cancer, Hypertension Additional Family Medical History / Comment(s): Thyroid cancer, bipolar Father Family Medical History: Seizure Disorder Additional Family Medical History / Comment(s): Epilepsy Medications and Allergies Home Medications Medication Instructions Recorded Confirmed Type Aspirin EC [Ecotrin Low Dose] 81 mg PO DAILY 04/03/21 08/02/21 History Carvedilol [Coreg] 25 mg PO BID 04/03/21 08/02/21 History Ergocalciferol (Vitamin D2) 1,250 mcg PO COPELAND 04/03/21 08/02/21 History [Drisdol (50,000 Iu)] Isosorbide Mononitrate ER [Imdur] 30 mg PO HS 04/03/21 08/02/21 History Acetaminophen Tab [Tylenol] 650 mg PO Q6HR PRN #30 tab 04/09/21 08/02/21 Rx amLODIPine [Norvasc] 10 mg PO DAILY 30 Days #30 tab 04/15/21 08/02/21 Rx Escitalopram [Lexapro] 20 mg PO DAILY 04/17/21 08/02/21 History rOPINIRole HCL [Requip] 0.5 mg PO HS 04/17/21 08/02/21 History Sevelamer [Renvela] 800 mg PO TID-W/MEALS 30 Days #90 05/31/21 08/02/21 Rx tab Pantoprazole Sodium [Protonix] 40 mg PO BID 30 Days #60 tab 06/04/21 08/02/21 Rx Glucagon Emergency Kit 1 mg IM ONCE PRN #1 kit 06/15/21 08/02/21 Rx Melatonin 5 - 10 mg PO HS PRN 06/29/21 08/02/21 History Furosemide [Lasix] 80 mg PO BID #60 tab 07/03/21 08/02/21 Rx hydrALAZINE HCL [Apresoline] 100 mg PO QID #120 tab 07/03/21 08/02/21 Rx minoxidiL [Loniten] 2.5 mg PO BID #60 tab 07/03/21 08/02/21 Rx Insulin Glargine [Lantus Vial] 10 unit SQ HS 07/10/21 08/02/21 History cloNIDine HCL [Catapres] 0.3 mg PO TID 30 Days #90 tablet 07/12/21 08/02/21 Rx Insulin Lispro [humaLOG Kwikpen] See Protocol SQ AC-TID 08/02/21 08/02/21 History Allergies Allergy/AdvReac Type Severity Reaction Status Date / Time Fish Containing Products Allergy Rash/Hives Verified 08/02/21 12:46 [Fish] iodine Allergy Anaphylaxis Verified 08/02/21 12:46 Surgical - Exam Vital Signs Temp Pulse Resp BP Pulse Ox 101.4 F H 119 H 24 209/110 99 08/02/21 07:35 08/02/21 07:35 08/02/21 07:35 08/02/21 07:35 08/02/21 07:35 CONSTITUTIONAL: Awake and alert, appears comfortable, cooperative, well- developed, well-nourished, no pain, no acute distress EYES: Pupils equal, round, reactive to light, normal ocular movement ENT: Moist mucous membranes without oral lesions present NECK: No masses, no bruits, trachea midline RESPIRATORY: Lungs sounds clear to auscultation bilaterally. Respirations even, nonlabored. Currently on room air with oxygen saturation 94%. CARDIOVASCULAR: S1, S2 present. Regular rate and rhythm, sinus rhythm on telemetry. Palpable peripheral pulses bilaterally. No edema present. No calf pain or tenderness noted. GASTROINTESTINAL: Abdomen soft, nontender, nondistended without masses or o rganomegaly noted. There is no rebound or guarding present. Active bowel sounds present 4 quadrants. GENITOURINARY: Deferred INTEGUMENTARY: Skin is warm and dry with evidence of good perfusion. NEUROLOGIC: Cranial nerves II through XII intact, normal coordination, no obvious motor or sensory deficits, speech is normal MUSKULOSKELETAL: Able to move all extremities, strength equal bilaterally, normal posture PSYCHIATRIC: Alert and oriented to person place and time, appropriate affect, intact judgment and insight Results - Labs 08/03/21 08:31 08/03/21 08:31 Abnormal Lab Results - Last 24 Hours (Table) 08/02/21 08/03/21 08/03/21 Range/Units 22:10 06:04 08:31 WBC 3.3 L (3.8-10.6) k/uL RBC 3.05 L (3.80-5.40) m/uL Hgb 9.5 L D (11.4-16.0) gm/dL Hct 29.3 L (34.0-46.0) % Lymphocytes # 0.5 L (1.0-4.8) k/uL POC Glucose (mg/dL) 143 H 360 H (75-99) mg/dL - Imaging Chest x-ray: report reviewed, image reviewed CT scan - abdomen: report reviewed, image reviewed CT scan - pelvis: report reviewed, image reviewed Additional studies: Echocardiogram was reviewed with Dr. Samayoa Assessment and Plan Assessment: 1. Large generalized pericardial effusion without tamponade physiology 2. Nausea/vomiting/diarrhea present on admission 3. History of hypertension 4. Type 1 diabetes with history of DKA and associated retinopathy and neuropathy 5. End-stage renal disease on dialysis Monday/Monday/Monday 6. History of CVA/TIA 7. Covid diagnosis in May 2021 8. Anxiety/depression 9. Never smoker Plan: The patient was seen and examined at the bedside. Chart/diagnostics were reviewed with Dr. Samayoa. At this time the patient is not symptomatic, no tamponade physiology is present, hemodynamically stable. There is no indication for surgery at this time. We recommend aggressive dialysis, consider colchicine. Recommend repeat echocardiogram in 3-4 weeks and if effusion is worse will consider pericardial window. Medical management of other comorbidities per primary care, cardiology, nephrology. Thank you for this consult. Please call us with any further questions. I have personally seen and examined the patient, performed the documentation and the assessment and plan as written. Number of minutes spent on the visit: 30. Time with Patient: Greater than 30 <Veto Samayoa R - Last Filed: 08/03/21 12:18> Surgical - Exam Vital Signs Temp Pulse Resp BP Pulse Ox 101.4 F H 119 H 24 209/110 99 08/02/21 07:35 08/02/21 07:35 08/02/21 07:35 08/02/21 07:35 08/02/21 07:35 Results - Labs 08/03/21 08:31 08/03/21 08:31 Abnormal Lab Results - Last 24 Hours (Table) 08/02/21 08/02/21 08/03/21 Range/Units 22:10 23:24 06:04 WBC (3.8-10.6) k/uL RBC (3.80-5.40) m/uL Hgb (11.4-16.0) gm/dL Hct (34.0-46.0) % Lymphocytes # (1.0-4.8) k/uL Sodium (137-145) mmol/L BUN (7-17) mg/dL Creatinine (0.52-1.04) mg/dL Glucose (74-99) mg/dL POC Glucose (mg/dL) 143 H 360 H (75-99) mg/dL AST (14-36) U/L ALT (4-34) U/L Alkaline Phosphatase (38-126) U/L Total Protein (6.3-8.2) g/dL Albumin (3.5-5.0) g/dL Procalcitonin 16.90 H (0.02-0.09) ng/mL 08/03/21 08/03/21 08/03/21 Range/Units 08:31 08:31 11:28 WBC 3.3 L (3.8-10.6) k/uL RBC 3.05 L (3.80-5.40) m/uL Hgb 9.5 L D (11.4-16.0) gm/dL Hct 29.3 L (34.0-46.0) % Lymphocytes # 0.5 L (1.0-4.8) k/uL Sodium 132 L (137-145) mmol/L BUN 46 H (7-17) mg/dL Creatinine 7.06 H* (0.52-1.04) mg/dL Glucose 243 H (74-99) mg/dL POC Glucose (mg/dL) 140 H (75-99) mg/dL AST 100 H (14-36) U/L ALT 147 H (4-34) U/L Alkaline Phosphatase 140 H (38-126) U/L Total Protein 5.8 L (6.3-8.2) g/dL Albumin 3.4 L (3.5-5.0) g/dL Procalcitonin (0.02-0.09) ng/mL Diabetes panel 08/03/21 Range/Units 08:31 Sodium 132 L (137-145) mmol/L Potassium 4.9 (3.5-5.1) mmol/L Chloride 98 (98-107) mmol/L Carbon Dioxide 24 (22-30) mmol/L BUN 46 H (7-17) mg/dL Creatinine 7.06 H* (0.52-1.04) mg/dL Glucose 243 H (74-99) mg/dL Calcium 9.2 (8.4-10.2) mg/dL AST 100 H (14-36) U/L ALT 147 H (4-34) U/L Alkaline Phosphatase 140 H (38-126) U/L Total Protein 5.8 L (6.3-8.2) g/dL Albumin 3.4 L (3.5-5.0) g/dL Calcium panel 08/03/21 Range/Units 08:31 Calcium 9.2 (8.4-10.2) mg/dL Albumin 3.4 L (3.5-5.0) g/dL Pituitary panel 08/03/21 Range/Units 08:31 Sodium 132 L (137-145) mmol/L Potassium 4.9 (3.5-5.1) mmol/L Chloride 98 (98-107) mmol/L Carbon Dioxide 24 (22-30) mmol/L BUN 46 H (7-17) mg/dL Creatinine 7.06 H* (0.52-1.04) mg/dL Glucose 243 H (74-99) mg/dL Calcium 9.2 (8.4-10.2) mg/dL Adrenal panel 08/03/21 Range/Units 08:31 Sodium 132 L (137-145) mmol/L Potassium 4.9 (3.5-5.1) mmol/L Chloride 98 (98-107) mmol/L Carbon Dioxide 24 (22-30) mmol/L BUN 46 H (7-17) mg/dL Creatinine 7.06 H* (0.52-1.04) mg/dL Glucose 243 H (74-99) mg/dL Calcium 9.2 (8.4-10.2) mg/dL Total Bilirubin 0.6 (0.2-1.3) mg/dL AST 100 H (14-36) U/L ALT 147 H (4-34) U/L Alkaline Phosphatase 140 H (38-126) U/L Total Protein 5.8 L (6.3-8.2) g/dL Albumin 3.4 L (3.5-5.0) g/dL Assessment and Plan Assessment: CT scans and Echocardiograms reviewed. Patient examined. No evidencee of tamponade physiology by echo or VS/PE. Echo and CT both confirm enlarging pericardial effusion, 1cm later May, now 2cm. Time with Patient: Less than 30
[2021-08-03 11:30] LABS: Glucose,Whole Blood 140 mg/dL (75-99)
[2021-08-03 12:41] VITALS: BMI 18.0
[2021-08-03] MEDS: METOCLOPRAMIDE 10 MG TAB PO SCH ×3 (13:26→17:10)
--- NOTE | 2021-08-03 13:47 | P.PN ---
Subjective This is a pleasant 30 his CVA/TIA, Dialysis, Eye Disorder, Hypertension, Renal Disease, Seizure Disorder, ESRD with hemodialysis M/W/F, IDDM type 1, DKA, neuropathy bilateral legs/feet, diabetic retinopathy/legally blind, RLS, gastritis, severe hypokalemia, fluid retention in abdomin/legs. Patient presents because of vomiting frequently more than 1 cm hour, with diarrhea every 30 minutes as she describes. No blood in the vomiting or diarrhea which is watery. No abdominal pain and abdomen soft, she has some chest pain since yesterday the middle about 60/10 and she says is similar to blood pressure elevation before. Blood pressure on admission was elevated about 200/more than 100. No dyspnea but little dry cough. Little headache because of high blood pressure 6/10, no dizziness or weakness or numbness, she makes little urine with no dysuria. She denies smoking, alcohol or illicit drugs. She does not have PCP On admission patient has a fever off 103. rest of vitals looks stable, blood pressure is elevated on admission 209/110, currently better controlled with SBP 150s to 160s. CBC is unremarkable elevated creatinine as patient is hemodialysis patient. Lactic acid came back to normal at 1.2, glucose control. AST elevated 694 and ALT 202, bilirubin is normal at 1.2. Lipase 322. HCG is negative Viral panel was negative including coronavirus, hepatitis panel, influenza virus. As well as heterophile antibody. Chest x-ray showed cardiomegaly CT of the abdomen and pelvis showing pericardial effusion with possible pericardial tamponade Suspect hepatic periportal edema, please correlate with liver function test and hepatic viral serology. Fat stranding in the peritoneal with prominent lymph nodes and peritoneal reflection thickening peritonitis cannot exclude it. This could be secondary to mild acute pancreatitis or enteritis. Liver ultrasound: No acute process. Gallbladder surgically absent. Kidney atrophy 08/03/2021 Today patient looks more comfortable and relaxed, M bed with no chest pain or headache which is completely resolved with controlling of hers blood pressure. She denies chest pain dyspnea or coughing, no abdominal pain or vomiting. However she still has twice per day diarrhea. She makes little urine. She underwent hemodialysis today. Blood pressure improved and actually went down to 104/52, therefore we lowered her hydralazine 75 mg down to 50 mg, also withhold her clonidine 0.1 mg 3 times a day, we put holding parameters for Norvasc 10 mg at bedtime. Continue with Coreg 25 mg as well as hydralazine 50 mg 3 times a day and minoxidil 2.5 mg twice a day. WBC 3.3, hemoglobin 9.5, liver enzymes trending down with AST and draped and ALT 147. Patient is afebrile. No evidence of tamponade per vascular surgery Objective - Vital Signs Vital signs: Vital Signs Temp 98.8 F 08/03/21 08:00 Pulse 82 08/03/21 08:00 Resp 17 08/03/21 08:00 BP 124/60 08/03/21 08:00 Pulse Ox 93 L 08/03/21 08:00 Intake & Output 08/02/21 08/03/21 08/03/21 18:59 06:59 18:59 Output Total 3000 Balance -3000 Weight 47.627 kg Output: Hemodialysis 3000 Other: # Voids 0 # Bowel Movements 1 - Exam GENERAL: The patient is alert and oriented x3, not in any acute distress. Well developed, well nourished. HEENT: Pupils are round and equally reacting to light. EOMI. No scleral icterus. No conjunctival pallor. Normocephalic, atraumatic. No pharyngeal erythema. No thyromegaly. CARDIOVASCULAR: S1 and S2 present. No murmurs, rubs, or gallops. PULMONARY: Chest is clear to auscultation, no wheezing or crackles. ABDOMEN: Soft, nontender, nondistended, normoactive bowel sounds. No palpable organomegaly. MUSCULOSKELETAL: No joint swelling or deformity. EXTREMITIES: No cyanosis, clubbing, or pedal edema. NEUROLOGICAL: Gross neurological examination did not reveal any focal deficits. SKIN: No rashes. no petechiae. - Labs CBC & Chem 7: 08/03/21 08:31 08/03/21 08:31 Labs: Abnormal Lab Results - Last 24 Hours (Table) 08/02/21 08/02/21 08/03/21 Range/Units 22:10 23:24 06:04 WBC (3.8-10.6) k/uL RBC (3.80-5.40) m/uL Hgb (11.4-16.0) gm/dL Hct (34.0-46.0) % Lymphocytes # (1.0-4.8) k/uL Sodium (137-145) mmol/L BUN (7-17) mg/dL Creatinine (0.52-1.04) mg/dL Glucose (74-99) mg/dL POC Glucose (mg/dL) 143 H 360 H (75-99) mg/dL AST (14-36) U/L ALT (4-34) U/L Alkaline Phosphatase (38-126) U/L Total Protein (6.3-8.2) g/dL Albumin (3.5-5.0) g/dL Procalcitonin 16.90 H (0.02-0.09) ng/mL 08/03/21 08/03/21 Range/Units 08:31 08:31 WBC 3.3 L (3.8-10.6) k/uL RBC 3.05 L (3.80-5.40) m/uL Hgb 9.5 L D (11.4-16.0) gm/dL Hct 29.3 L (34.0-46.0) % Lymphocytes # 0.5 L (1.0-4.8) k/uL Sodium 132 L (137-145) mmol/L BUN 46 H (7-17) mg/dL Creatinine 7.06 H* (0.52-1.04) mg/dL Glucose 243 H (74-99) mg/dL POC Glucose (mg/dL) (75-99) mg/dL AST 100 H (14-36) U/L ALT 147 H (4-34) U/L Alkaline Phosphatase 140 H (38-126) U/L Total Protein 5.8 L (6.3-8.2) g/dL Albumin 3.4 L (3.5-5.0) g/dL Procalcitonin (0.02-0.09) ng/mL Assessment and Plan Assessment: Suspect intra-abdominal infection, with elevated liver enzymes and gastroenteritis. Improving Pericardial effusion with possible tamponade and Sepsis with fever Elevated liver enzymes End-stage renal disease on hemodialysis Hypertension with urgency on admission. Resolved History of seizure disorder Insulin-dependent diabetes mellitus Diabetic neuropathy Diabetic retinopathy, patient is legally blind. Restless leg syndrome History of gastritis History of severe hypokalemia History of fluid retention of the abdomen and legs Plan: This is a pleasant 30 years old female who presents with pericardial effusion and possible tamponade and high fever. ESDR on hemodialysis I cardiology and cardiothoracic surgery on the case Patient currently kept on Zosyn, infectious disease team on the case, follow-up blood culture results Urban Designer on the case for dialysis Monitor blood pressure closely and continue with antihypertensive medication Labs and medication were reviewed.. Continue same treatment. Continue with symptomatic treatment. Resume home medication. Monitor lytes and vitals. DVT and GI prophylaxis. Further recommendations as per clinical course of the patient pognosis is guarded
--- NOTE | 2021-08-03 15:58 | PN ---
PROGRESS NOTE Patient is seen for followup for end-stage renal disease. She was admitted to the hospital with nausea, vomiting and diarrhea, which seem to have improved. Patient was also found to have large pericardial effusion and pleural effusion with volume overload. She had dialysis yesterday with ultrafiltration of about 3 L, which patient tolerated well. Her blood pressure has improved, and currently blood pressure is low. Patient also received her morning antihypertensive medications; therefore we are not able to remove much fluid today. On examination today, blood pressure 104/52, heart rate 80 per minute. She is afebrile. Examination of the heart: S1, S2. Examination of the lungs: Bilateral breath sounds are heard. Examination of lower extremities shows no evidence of edema. Examination of the abdomen reveals it to be soft, nontender. 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 Labs show hemoglobin 9.5, sodium 132, potassium 4.9, BUN 46, creatinine 7.0. ASSESSMENT: 1. End-stage renal disease, on hemodialysis on a Monday, Monday, Monday schedule. 2. Volume overload. 3. Large pericardial effusion and pleural effusion, most likely as a component of generalized volume overload. Uremic pericarditis is a consideration. However, patient has been fairly compliant with her treatments recently. We will continue to dialyze her on a daily basis for now. 4. Nausea, vomiting, diarrhea, currently improved. 5. Hypertension partly volume-sensitive, currently improved with dialysis and continuation of antihypertensive regimen. PLAN: Repeat dialysis in a.m. Hold antihypertensive medications before dialysis. MMODL / IJN: [id number] /
[2021-08-03] MEDS: ACETAMINOPHEN TAB 325 MG TAB PO PRN (15:59)
[2021-08-03] MEDS ORDERED: cloNIDine HCL 0.1 MG TAB PO SCH (16:00)
[2021-08-03 16:43] LABS: Glucose,Whole Blood 427 mg/dL (75-99)
[2021-08-03 18:02] LABS: Albumin 3.9 g/dL (3.5-5.0); Calcium 8.7 mg/dL (8.4-10.2); Magnesium 1.9 mg/dL (1.6-2.3); Potassium 4.8 mmol/L (3.5-5.1); Total Bilirubin 0.8 mg/dL (0.2-1.3); Total Protein 6.2 g/dL (6.3-8.2)
[2021-08-03] MEDS ORDERED: MORPHINE SULFATE 2 MG/ML SYRINGE IVP STA (18:25)
[2021-08-03 18:36] LABS: EBV-EA (IgG) <0.2 AI; EBV-EBNA(IgG) 7.9 AI; EBV-VCA (IgG) 1.5 AI; EBV-VCA (IgM) 0.2 AI
[2021-08-03 18:41] LABS: Glucose,Whole Blood 456 mg/dL (75-99)
[2021-08-03] MEDS ORDERED: INSULIN ASPART (NovoLOG) 100 UNIT/ML VIAL SQ ONE (18:45)
[2021-08-03] MEDS: INSULIN DETEMIR (LEVEMIR) 100 UNIT/ML SYR SQ SCH (18:52)
[2021-08-03 20:03] LABS: Glucose,Whole Blood 408 mg/dL (75-99)
[2021-08-03] MEDS: amLODIPine 10 MG TAB PO SCH (21:11)
[2021-08-03] MEDS: ISOSORBIDE MONONITRATE ER 30 MG TAB.ER.24H PO SCH (21:18)
[2021-08-03] MEDS: HEPARIN SODIUM,PORCINE/PF 5,000 UNIT/0.5 ML SYRINGE SQ SCH (21:19)
--- NOTE | 2021-08-03 21:27 | P.PN ---
Subjective Progress Note Date: 08/03/21 Principal diagnosis: Fever Patient is a 30 year old female with a past medical history significant for end-stage renal disease on hemodialysis through the left arm AV fistula, presented to the hospital acute nausea vomiting diarrhea and did have a fever. On today's evaluation that is 08/03/2021, the patient fever has resolved the patient is feeling slightly better, patient denies any further nausea or vomiting. Denies any abdominal pain and no further diarrhea the patient denies having any chest pain or shortness of breath or cough Objective - Vital Signs Vital signs: Vital Signs Temp 98.7 F 08/03/21 14:00 Pulse 90 08/03/21 14:00 Resp 18 08/03/21 14:00 BP 110/62 08/03/21 14:00 Pulse Ox 97 08/03/21 12:17 Intake & Output 08/02/21 08/03/21 08/03/21 18:59 06:59 18:59 Intake Total 300 Output Total 3000 500 Balance -3000 -200 Weight 47.627 kg 47.627 kg Intake: Hemodialysis 300 Output: Hemodialysis 3000 500 Other: # Voids 0 # Bowel Movements 1 - Exam GENERAL DESCRIPTION: Middle-age female lying in bed in no distress RESPIRATORY SYSTEM: Unlabored breathing , decreased breath sounds at bases HEART: S1 S2 regular rate and rhythm , ABDOMEN: Soft , no tenderness EXTREMITIES: No edema feet - Labs CBC & Chem 7: 08/03/21 08:31 08/03/21 17:37 Labs: Abnormal Lab Results - Last 24 Hours (Table) 08/02/21 08/02/21 08/03/21 Range/Units 22:10 23:24 06:04 WBC (3.8-10.6) k/uL RBC (3.80-5.40) m/uL Hgb (11.4-16.0) gm/dL Hct (34.0-46.0) % Lymphocytes # (1.0-4.8) k/uL Sodium (137-145) mmol/L BUN (7-17) mg/dL Creatinine (0.52-1.04) mg/dL Glucose (74-99) mg/dL POC Glucose (mg/dL) 143 H 360 H (75-99) mg/dL AST (14-36) U/L ALT (4-34) U/L Alkaline Phosphatase (38-126) U/L Total Protein (6.3-8.2) g/dL Albumin (3.5-5.0) g/dL Procalcitonin 16.90 H (0.02-0.09) ng/mL 08/03/21 08/03/21 08/03/21 Range/Units 08:31 08:31 11:28 WBC 3.3 L (3.8-10.6) k/uL RBC 3.05 L (3.80-5.40) m/uL Hgb 9.5 L D (11.4-16.0) gm/dL Hct 29.3 L (34.0-46.0) % Lymphocytes # 0.5 L (1.0-4.8) k/uL Sodium 132 L (137-145) mmol/L BUN 46 H (7-17) mg/dL Creatinine 7.06 H* (0.52-1.04) mg/dL Glucose 243 H (74-99) mg/dL POC Glucose (mg/dL) 140 H (75-99) mg/dL AST 100 H (14-36) U/L ALT 147 H (4-34) U/L Alkaline Phosphatase 140 H (38-126) U/L Total Protein 5.8 L (6.3-8.2) g/dL Albumin 3.4 L (3.5-5.0) g/dL Procalcitonin (0.02-0.09) ng/mL Microbiology - Last 24 Hours (Table) 08/02/21 12:27 Blood Culture - Preliminary Blood No Growth after 24 hours 08/02/21 12:27 Blood Culture - Preliminary Blood No Growth after 24 hours Assessment and Plan (1) Fever Current Visit: Yes Status: Acute Code(s): R50.9 - FEVER, UNSPECIFIED SNOMED Code(s): 558088656 Plan: 1patient presented to hospital with acute vomiting diarrhea and did have a fever and this patient did have abnormal CT abdominal pelvis with evidence of possible pericardial effusion and tamponade phenomena for which cardiology has been consulted patient also have elevated liver enzymes however the patient have a normal white count with lymphopenia concerning for possible viral syndrome. 2initial viral testing including Covid influenza and hepatitis panel has been negative. 3 EBV and CMV serology are currently pending. 4continue with empiric Zosyn in view of clinical improvement and resolution of fever, while waiting for the work-up to be completed 5 stool studies currently pending Time with Patient: Less than 30
[2021-08-03 21:28] LABS: Glucose,Whole Blood 281 mg/dL (75-99)
[2021-08-03] MEDS: MELATONIN 5 MG TABLET PO PRN (21:39)
[2021-08-04] MEDS: METOCLOPRAMIDE 10 MG TAB PO SCH ×5 (00:12→23:05)
[2021-08-04] MEDS: MORPHINE SULFATE 2 MG/ML SYRINGE IVP PRN (00:12)
[2021-08-04 02:14] LABS: Glucose,Whole Blood 46 mg/dL (75-99)
[2021-08-04] MEDS ORDERED: DEXTROSE 50% SYRINGE 50 ML IVP ONE (02:21)
[2021-08-04 02:29] LABS: Glucose,Whole Blood 37 mg/dL (75-99)
[2021-08-04 02:45] LABS: Glucose,Whole Blood 110 mg/dL (75-99)
[2021-08-04 06:08] LABS: Glucose,Whole Blood 67 mg/dL (75-99)
[2021-08-04] MEDS: INSULIN ASPART (NovoLOG) 100 UNIT/ML VIAL SQ SCH ×4 (06:09→21:11)
[2021-08-04] MEDS: PANTOPRAZOLE 40 MG TABLET PO SCH ×2 (06:15→16:55)
[2021-08-04 06:38] LABS: Glucose,Whole Blood 67 mg/dL (75-99)
[2021-08-04 07:07] LABS: Glucose,Whole Blood 79 mg/dL (75-99)
[2021-08-04 08:50] LABS: Glucose,Whole Blood 165 mg/dL (75-99)
[2021-08-04] MEDS: hydrALAZINE HCL 25 MG TAB PO SCH ×4 (09:17→21:12)
[2021-08-04] MEDS: minoxidiL 2.5 MG TAB PO SCH ×2 (09:17→20:12)
[2021-08-04] MEDS: carvediloL 12.5 MG TAB PO SCH ×3 (09:21→20:11)
[2021-08-04] MEDS: ASPIRIN 81 MG PO SCH (09:24)
[2021-08-04] MEDS: ESCITALOPRAM 20 MG TAB PO SCH (09:24)
[2021-08-04] MEDS: PIPERACILLIN-TAZOBACTAM 3.375 GM in SODIUM CHLORIDE 0.9% 100 ML IVPB SCH ×2 (09:24→20:13)
[2021-08-04] MEDS: SEVELAMER 800 MG TAB PO SCH ×3 (09:25→16:55)
[2021-08-04] MEDS: HEPARIN SODIUM,PORCINE/PF 5,000 UNIT/0.5 ML SYRINGE SQ SCH ×2 (09:25→20:13)
[2021-08-04 11:40] LABS: Glucose,Whole Blood 254 mg/dL (75-99)
--- NOTE | 2021-08-04 11:53 | P.PN ---
Subjective Patient is seen for follow-up for end-stage renal disease. She was admitted to the hospital with nausea vomiting and diarrhea. Patient was noted to have large pericardial effusion along with pleural effusion with significantly elevated blood pressure which responded very well to dialysis. No evidence of temporal not on echocardiogram Patient has had 2 consecutive treatments but yesterday we were not able to remove much fluid as her blood pres sure remained low since patient received antihypertensive medications in the morning. No significant complaints today. No nausea or vomiting noted patient has been tolerating oral intake. She is scheduled for hemodialysis again today Objective - Vital Signs Vital signs: Vital Signs Temp 98.5 F 08/04/21 08:00 Pulse 82 08/04/21 08:00 Resp 17 08/04/21 08:00 BP 181/89 08/04/21 08:00 Pulse Ox 99 08/04/21 08:00 Intake & Output 08/03/21 08/04/21 08/04/21 18:59 06:59 18:59 Intake Total 840 540 Output Total 500 Balance 340 540 Weight 47.627 kg Intake: Oral 540 540 Hemodialysis 300 Output: Hemodialysis 500 Other: # Voids 0 - Exam Agent is awake comfortable. Alert and oriented 3. 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 - Labs CBC & Chem 7: 08/03/21 08:31 08/03/21 17:37 Labs: Abnormal Lab Results - Last 24 Hours (Table) 08/03/21 08/03/21 08/03/21 Range/Units 08:31 08:31 16:42 Sodium (137-145) mmol/L Chloride (98-107) mmol/L Carbon Dioxide (22-30) mmol/L BUN (7-17) mg/dL Creatinine (0.52-1.04) mg/dL Glucose (74-99) mg/dL POC Glucose (mg/dL) 427 H (75-99) mg/dL AST (14-36) U/L ALT (4-34) U/L Alkaline Phosphatase (38-126) U/L Total Protein (6.3-8.2) g/dL Procalcitonin 20.60 H (0.02-0.09) ng/mL EBV Capsid Ag IgG Intrp POSITIVE A (NEGATIVE) EBV Nuc Ag IgG Interp POSITIVE A (NEGATIVE) 08/03/21 08/03/21 08/03/21 Range/Units 17:37 18:40 19:50 Sodium 136 L (137-145) mmol/L Chloride 96 L (98-107) mmol/L Carbon Dioxide 18 L (22-30) mmol/L BUN 25 H (7-17) mg/dL Creatinine 3.70 H (0.52-1.04) mg/dL Glucose 507 H* (74-99) mg/dL POC Glucose (mg/dL) 456 H 408 H (75-99) mg/dL AST 70 H (14-36) U/L ALT 133 H (4-34) U/L Alkaline Phosphatase 165 H (38-126) U/L Total Protein 6.2 L (6.3-8.2) g/dL Procalcitonin (0.02-0.09) ng/mL EBV Capsid Ag IgG Intrp (NEGATIVE) EBV Nuc Ag IgG Interp (NEGATIVE) 08/03/21 08/04/21 08/04/21 Range/Units 21:27 02:04 02:19 Sodium (137-145) mmol/L Chloride (98-107) mmol/L Carbon Dioxide (22-30) mmol/L BUN (7-17) mg/dL Creatinine (0.52-1.04) mg/dL Glucose (74-99) mg/dL POC Glucose (mg/dL) 281 H 46 L 37 L (75-99) mg/dL AST (14-36) U/L ALT (4-34) U/L Alkaline Phosphatase (38-126) U/L Total Protein (6.3-8.2) g/dL Procalcitonin (0.02-0.09) ng/mL EBV Capsid Ag IgG Intrp (NEGATIVE) EBV Nuc Ag IgG Interp (NEGATIVE) 08/04/21 08/04/21 08/04/21 Range/Units 02:41 05:58 06:18 Sodium (137-145) mmol/L Chloride (98-107) mmol/L Carbon Dioxide (22-30) mmol/L BUN (7-17) mg/dL Creatinine (0.52-1.04) mg/dL Glucose (74-99) mg/dL POC Glucose (mg/dL) 110 H 67 L 67 L (75-99) mg/dL AST (14-36) U/L ALT (4-34) U/L Alkaline Phosphatase (38-126) U/L Total Protein (6.3-8.2) g/dL Procalcitonin (0.02-0.09) ng/mL EBV Capsid Ag IgG Intrp (NEGATIVE) EBV Nuc Ag IgG Interp (NEGATIVE) 08/04/21 08/04/21 Range/Units 08:48 11:38 Sodium (137-145) mmol/L Chloride (98-107) mmol/L Carbon Dioxide (22-30) mmol/L BUN (7-17) mg/dL Creatinine (0.52-1.04) mg/dL Glucose (74-99) mg/dL POC Glucose (mg/dL) 165 H 254 H (75-99) mg/dL AST (14-36) U/L ALT (4-34) U/L Alkaline Phosphatase (38-126) U/L Total Protein (6.3-8.2) g/dL Procalcitonin (0.02-0.09) ng/mL EBV Capsid Ag IgG Intrp (NEGATIVE) EBV Nuc Ag IgG Interp (NEGATIVE) Microbiology - Last 24 Hours (Table) 08/02/21 12:27 Blood Culture - Preliminary Blood No Growth after 24 hours 08/02/21 12:27 Blood Culture - Preliminary Blood No Growth after 24 hours Assessment and Plan Assessment: 1. End-stage renal disease on hemodialysis on a Monday schedule 2. Volume overload 3. Large pericardial effusion with pleural effusion most likely component of generalized volume overload. Uremic pericarditis is a consideration. Patient is currently being dialyzed on a daily basis with aggressive ultrafiltration. We were not able to remove much fluid yesterday as her blood pressure was low. 4. Nausea and vomiting along with diarrhea currently resolved 5. Hypertension partly volume sensitive currently improved. Antihypertensive medications were decreased. Plan: Hemodialysis today and then again in a.m.
[2021-08-04] MEDS: diphenhydrAMINE ELIXIR 25 MG/10 ML CUP PO PRN ×2 (12:27→22:09)
--- NOTE | 2021-08-04 13:15 | P.PN ---
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 She does not follow with a liquefaction and regasification helper. She states she has a new primary care provider, but does not know the name or has followed up. Patient presented to the hospital with complaints of nausea, vomiting, diarrhea. Cardiology consulted for pericardial effusion. There is no prior history of coronary artery disease or congestive heart failure. An echocardiogram that was performed on this admission shows large pericardial effusion without any evidence of tamponade. Patient had an echo done in May of this CN that revealed a small pericardial effusion. Patient seen at bedside, she denies any complaints. She denies any further symptoms of nausea, vomiting, diarrhea. She has no shortness of breath, chest pain, symptoms of orthopnea or PND she is euvolemic on exam. She had hemodialysis with 3L removed. Vitals are stable. GENERAL: Well-appearing, well-nourished and in no acute distress. NECK: Supple without JVD or thyromegaly. LUNGS: Breath sounds clear to auscultation bilaterally. Respiration equal and unlabored. No wheezes, rales or rhonchi. HEART: Regular rate and rhythm without murmurs, rubs or gallops. S1 and S2 heard. EXTREMITIES: Normal range of motion, no edema. No clubbing or cyanosis. Peripheral pulses intact. ASSESSMENT Large pericardial effusion without tamponade physiology Nausea/vomiting/diarrhea present on admission Hypertensive heart disease End-stage renal disease on hemodialysis Type 1 diabetes with history of DKA and associated retinopathy and neuropathy History of CVA/TIA PLAN Patient is currently not in tamponade not clinically, patient is not symptomatic, no tamponade physiology is present, hemodynamically stable. CT surgery evaluated the patient and no indication for surgery at this time. Recommend repeat echocardiogram in 3-4 weeks Plan for dialysis today. Recommend repeat echocardiogram outpatient and follow up outpatient with cardiology. Nurse Practitioner note has been reviewed, I agree with a documented findings and plan of care. Patient was seen and examined. Objective - Vital Signs Vital signs: Vital Signs Temp 98.4 F 08/04/21 04:41 Pulse 76 08/04/21 04:41 Resp 18 08/04/21 04:41 BP 140/69 08/04/21 04:41 Pulse Ox 96 08/04/21 04:41 Intake & Output 08/03/21 08/04/21 08/04/21 18:59 06:59 18:59 Intake Total 840 540 Output Total 500 Balance 340 540 Weight 47.627 kg Intake: Oral 540 540 Hemodialysis 300 Output: Hemodialysis 500 Other: # Voids 0 - Labs CBC & Chem 7: 08/03/21 08:31 08/03/21 17:37 Labs: Abnormal Lab Results - Last 24 Hours (Table) 08/02/21 08/03/21 08/03/21 Range/Units 23:24 08:31 08:31 WBC 3.3 L (3.8-10.6) k/uL RBC 3.05 L (3.80-5.40) m/uL Hgb 9.5 L D (11.4-16.0) gm/dL Hct 29.3 L (34.0-46.0) % Lymphocytes # 0.5 L (1.0-4.8) k/uL Sodium 132 L (137-145) mmol/L Chloride (98-107) mmol/L Carbon Dioxide (22-30) mmol/L BUN 46 H (7-17) mg/dL Creatinine 7.06 H* (0.52-1.04) mg/dL Glucose 243 H (74-99) mg/dL POC Glucose (mg/dL) (75-99) mg/dL AST 100 H (14-36) U/L ALT 147 H (4-34) U/L Alkaline Phosphatase 140 H (38-126) U/L Total Protein 5.8 L (6.3-8.2) g/dL Albumin 3.4 L (3.5-5.0) g/dL Procalcitonin 16.90 H (0.02-0.09) ng/mL EBV Capsid Ag IgG Intrp (NEGATIVE) EBV Nuc Ag IgG Interp (NEGATIVE) 08/03/21 08/03/21 08/03/21 Range/Units 08:31 08:31 11:28 WBC (3.8-10.6) k/uL RBC (3.80-5.40) m/uL Hgb (11.4-16.0) gm/dL Hct (34.0-46.0) % Lymphocytes # (1.0-4.8) k/uL Sodium (137-145) mmol/L Chloride (98-107) mmol/L Carbon Dioxide (22-30) mmol/L BUN (7-17) mg/dL Creatinine (0.52-1.04) mg/dL Glucose (74-99) mg/dL POC Glucose (mg/dL) 140 H (75-99) mg/dL AST (14-36) U/L ALT (4-34) U/L Alkaline Phosphatase (38-126) U/L Total Protein (6.3-8.2) g/dL Albumin (3.5-5.0) g/dL Procalcitonin 20.60 H (0.02-0.09) ng/mL EBV Capsid Ag IgG Intrp POSITIVE A (NEGATIVE) EBV Nuc Ag IgG Interp POSITIVE A (NEGATIVE) 08/03/21 08/03/21 08/03/21 Range/Units 16:42 17:37 18:40 WBC (3.8-10.6) k/uL RBC (3.80-5.40) m/uL Hgb (11.4-16.0) gm/dL Hct (34.0-46.0) % Lymphocytes # (1.0-4.8) k/uL Sodium 136 L (137-145) mmol/L Chloride 96 L (98-107) mmol/L Carbon Dioxide 18 L (22-30) mmol/L BUN 25 H (7-17) mg/dL Creatinine 3.70 H (0.52-1.04) mg/dL Glucose 507 H* (74-99) mg/dL POC Glucose (mg/dL) 427 H 456 H (75-99) mg/dL AST 70 H (14-36) U/L ALT 133 H (4-34) U/L Alkaline Phosphatase 165 H (38-126) U/L Total Protein 6.2 L (6.3-8.2) g/dL Albumin (3.5-5.0) g/dL Procalcitonin (0.02-0.09) ng/mL EBV Capsid Ag IgG Intrp (NEGATIVE) EBV Nuc Ag IgG Interp (NEGATIVE) 08/03/21 08/03/21 08/04/21 Range/Units 19:50 21:27 02:04 WBC (3.8-10.6) k/uL RBC (3.80-5.40) m/uL Hgb (11.4-16.0) gm/dL Hct (34.0-46.0) % Lymphocytes # (1.0-4.8) k/uL Sodium (137-145) mmol/L Chloride (98-107) mmol/L Carbon Dioxide (22-30) mmol/L BUN (7-17) mg/dL Creatinine (0.52-1.04) mg/dL Glucose (74-99) mg/dL POC Glucose (mg/dL) 408 H 281 H 46 L (75-99) mg/dL AST (14-36) U/L ALT (4-34) U/L Alkaline Phosphatase (38-126) U/L Total Protein (6.3-8.2) g/dL Albumin (3.5-5.0) g/dL Procalcitonin (0.02-0.09) ng/mL EBV Capsid Ag IgG Intrp (NEGATIVE) EBV Nuc Ag IgG Interp (NEGATIVE) 08/04/21 08/04/21 08/04/21 Range/Units 02:19 02:41 05:58 WBC (3.8-10.6) k/uL RBC (3.80-5.40) m/uL Hgb (11.4-16.0) gm/dL Hct (34.0-46.0) % Lymphocytes # (1.0-4.8) k/uL Sodium (137-145) mmol/L Chloride (98-107) mmol/L Carbon Dioxide (22-30) mmol/L BUN (7-17) mg/dL Creatinine (0.52-1.04) mg/dL Glucose (74-99) mg/dL POC Glucose (mg/dL) 37 L 110 H 67 L (75-99) mg/dL AST (14-36) U/L ALT (4-34) U/L Alkaline Phosphatase (38-126) U/L Total Protein (6.3-8.2) g/dL Albumin (3.5-5.0) g/dL Procalcitonin (0.02-0.09) ng/mL EBV Capsid Ag IgG Intrp (NEGATIVE) EBV Nuc Ag IgG Interp (NEGATIVE) 08/04/21 08/04/21 Range/Units 06:18 08:48 WBC (3.8-10.6) k/uL RBC (3.80-5.40) m/uL Hgb (11.4-16.0) gm/dL Hct (34.0-46.0) % Lymphocytes # (1.0-4.8) k/uL Sodium (137-145) mmol/L Chloride (98-107) mmol/L Carbon Dioxide (22-30) mmol/L BUN (7-17) mg/dL Creatinine (0.52-1.04) mg/dL Glucose (74-99) mg/dL POC Glucose (mg/dL) 67 L 165 H (75-99) mg/dL AST (14-36) U/L ALT (4-34) U/L Alkaline Phosphatase (38-126) U/L Total Protein (6.3-8.2) g/dL Albumin (3.5-5.0) g/dL Procalcitonin (0.02-0.09) ng/mL EBV Capsid Ag IgG Intrp (NEGATIVE) EBV Nuc Ag IgG Interp (NEGATIVE) Microbiology - Last 24 Hours (Table) 08/02/21 12:27 Blood Culture - Preliminary Blood No Growth after 24 hours 08/02/21 12:27 Blood Culture - Preliminary Blood No Growth after 24 hours
[2021-08-04 16:54] LABS: Glucose,Whole Blood 386 mg/dL (75-99)
[2021-08-04] MEDS: ACETAMINOPHEN TAB 325 MG TAB PO PRN (16:56)
[2021-08-04] MEDS: ISOSORBIDE MONONITRATE ER 30 MG TAB.ER.24H PO SCH (20:12)
[2021-08-04] MEDS: amLODIPine 10 MG TAB PO SCH (20:12)
[2021-08-04 20:36] LABS: Glucose,Whole Blood 388 mg/dL (75-99)
--- NOTE | 2021-08-04 20:56 | P.PN ---
Subjective This is a pleasant 30 his CVA/TIA, Dialysis, Eye Disorder, Hypertension, Renal Disease, Seizure Disorder, ESRD with hemodialysis M/W/F, IDDM type 1, DKA, neuropathy bilateral legs/feet, diabetic retinopathy/legally blind, RLS, gastritis, severe hypokalemia, fluid retention in abdomin/legs. Patient presents because of vomiting frequently more than 1 cm hour, with diarrhea every 30 minutes as she describes. No blood in the vomiting or diarrhea which is watery. No abdominal pain and abdomen soft, she has some chest pain since yesterday the middle about 60/10 and she says is similar to blood pressure elevation before. Blood pressure on admission was elevated about 200/more than 100. No dyspnea but little dry cough. Little headache because of high blood pressure 6/10, no dizziness or weakness or numbness, she makes little urine with no dysuria. She denies smoking, alcohol or illicit drugs. She does not have PCP On admission patient has a fever off 103. rest of vitals looks stable, blood pressure is elevated on admission 209/110, currently better controlled with SBP 150s to 160s. CBC is unremarkable elevated creatinine as patient is hemodialysis patient. Lactic acid came back to normal at 1.2, glucose control. AST elevated 694 and ALT 202, bilirubin is normal at 1.2. Lipase 322. HCG is negative Viral panel was negative including coronavirus, hepatitis panel, influenza virus. As well as heterophile antibody. Chest x-ray showed cardiomegaly CT of the abdomen and pelvis showing pericardial effusion with possible pericardial tamponade Suspect hepatic periportal edema, please correlate with liver function test and hepatic viral serology. Fat stranding in the peritoneal with prominent lymph nodes and peritoneal reflection thickening peritonitis cannot exclude it. This could be secondary to mild acute pancreatitis or enteritis. Liver ultrasound: No acute process. Gallbladder surgically absent. Kidney atrophy 08/03/2021 Today patient looks more comfortable and relaxed, M bed with no chest pain or headache which is completely resolved with controlling of hers blood pressure. She denies chest pain dyspnea or coughing, no abdominal pain or vomiting. However she still has twice per day diarrhea. She makes little urine. She underwent hemodialysis today. Blood pressure improved and actually went down to 104/52, therefore we lowered her hydralazine 75 mg down to 50 mg, also withhold her clonidine 0.1 mg 3 times a day, we put holding parameters for Norvasc 10 mg at bedtime. Continue with Coreg 25 mg as well as hydralazine 50 mg 3 times a day and minoxidil 2.5 mg twice a day. WBC 3.3, hemoglobin 9.5, liver enzymes trending down with AST and draped and ALT 147. Patient is afebrile. No evidence of tamponade per vascular surgery 08/04/2021 Patient clinically improving each day and today she is ASYMPTOMATIC, she denies chest pain or headache or any other symptoms. Her diarrhea stopped. No vomiting and tolerates diet well. Blood pressure went up again and will resume her hydralazine and clonidine at 0.2 mg 3 times a day instead of home dose of 0.3. We'll keep monitoring. Her glucose is also were fluctuating, therefore we adjusted her insulin sliding scale with the nurse and we will monitor by tomorrow She remains on Zosyn. Production. It was elevated 16.9, vital study is negative for acute infection, she has positive EBV IgG indicating chronic infection with IgM negative. Infectious disease team of the case. Repeat labs tomorrow Hemodialysis tomorrow per Button Pusher Cartilages also on the case for pericardial effusion, no evidence of tamponade, cardiothoracic surgery recommended no surgical intervention. Brand Ambassador Promotional Model recommended repeat echocardiogram in 3-4 weeks as an outpatient Objective - Vital Signs Vital signs: Vital Signs Temp 98.5 F 08/04/21 08:00 Pulse 82 08/04/21 08:00 Resp 17 08/04/21 08:00 BP 181/89 08/04/21 08:00 Pulse Ox 99 08/04/21 08:00 Intake & Output 08/03/21 08/04/21 08/04/21 18:59 06:59 18:59 Intake Total 840 540 Output Total 500 Balance 340 540 Weight 47.627 kg Intake: Oral 540 540 Hemodialysis 300 Output: Hemodialysis 500 Other: # Voids 0 - Exam GENERAL: The patient is alert and oriented x3, not in any acute distress. Well developed, well nourished. HEENT: Pupils are round and equally reacting to light. EOMI. No scleral icterus. No conjunctival pallor. Normocephalic, atraumatic. No pharyngeal erythema. No thyromegaly. CARDIOVASCULAR: S1 and S2 present. No murmurs, rubs, or gallops. PULMONARY: Chest is clear to auscultation, no wheezing or crackles. ABDOMEN: Soft, nontender, nondistended, normoactive bowel sounds. No palpable organomegaly. MUSCULOSKELETAL: No joint swelling or deformity. EXTREMITIES: No cyanosis, clubbing, or pedal edema. NEUROLOGICAL: Gross neurological examination did not reveal any focal deficits. SKIN: No rashes. no petechiae. - Labs CBC & Chem 7: 08/03/21 08:31 08/03/21 17:37 Labs: Abnormal Lab Results - Last 24 Hours (Table) 08/03/21 08/03/21 08/03/21 Range/Units 08:31 08:31 16:42 Sodium (137-145) mmol/L Chloride (98-107) mmol/L Carbon Dioxide (22-30) mmol/L BUN (7-17) mg/dL Creatinine (0.52-1.04) mg/dL Glucose (74-99) mg/dL POC Glucose (mg/dL) 427 H (75-99) mg/dL AST (14-36) U/L ALT (4-34) U/L Alkaline Phosphatase (38-126) U/L Total Protein (6.3-8.2) g/dL Procalcitonin 20.60 H (0.02-0.09) ng/mL EBV Capsid Ag IgG Intrp POSITIVE A (NEGATIVE) EBV Nuc Ag IgG Interp POSITIVE A (NEGATIVE) 08/03/21 08/03/21 08/03/21 Range/Units 17:37 18:40 19:50 Sodium 136 L (137-145) mmol/L Chloride 96 L (98-107) mmol/L Carbon Dioxide 18 L (22-30) mmol/L BUN 25 H (7-17) mg/dL Creatinine 3.70 H (0.52-1.04) mg/dL Glucose 507 H* (74-99) mg/dL POC Glucose (mg/dL) 456 H 408 H (75-99) mg/dL AST 70 H (14-36) U/L ALT 133 H (4-34) U/L Alkaline Phosphatase 165 H (38-126) U/L Total Protein 6.2 L (6.3-8.2) g/dL Procalcitonin (0.02-0.09) ng/mL EBV Capsid Ag IgG Intrp (NEGATIVE) EBV Nuc Ag IgG Interp (NEGATIVE) 08/03/21 08/04/21 08/04/21 Range/Units 21:27 02:04 02:19 Sodium (137-145) mmol/L Chloride (98-107) mmol/L Carbon Dioxide (22-30) mmol/L BUN (7-17) mg/dL Creatinine (0.52-1.04) mg/dL Glucose (74-99) mg/dL POC Glucose (mg/dL) 281 H 46 L 37 L (75-99) mg/dL AST (14-36) U/L ALT (4-34) U/L Alkaline Phosphatase (38-126) U/L Total Protein (6.3-8.2) g/dL Procalcitonin (0.02-0.09) ng/mL EBV Capsid Ag IgG Intrp (NEGATIVE) EBV Nuc Ag IgG Interp (NEGATIVE) 08/04/21 08/04/21 08/04/21 Range/Units 02:41 05:58 06:18 Sodium (137-145) mmol/L Chloride (98-107) mmol/L Carbon Dioxide (22-30) mmol/L BUN (7-17) mg/dL Creatinine (0.52-1.04) mg/dL Glucose (74-99) mg/dL POC Glucose (mg/dL) 110 H 67 L 67 L (75-99) mg/dL AST (14-36) U/L ALT (4-34) U/L Alkaline Phosphatase (38-126) U/L Total Protein (6.3-8.2) g/dL Procalcitonin (0.02-0.09) ng/mL EBV Capsid Ag IgG Intrp (NEGATIVE) EBV Nuc Ag IgG Interp (NEGATIVE) 08/04/21 Range/Units 08:48 Sodium (137-145) mmol/L Chloride (98-107) mmol/L Carbon Dioxide (22-30) mmol/L BUN (7-17) mg/dL Creatinine (0.52-1.04) mg/dL Glucose (74-99) mg/dL POC Glucose (mg/dL) 165 H (75-99) mg/dL AST (14-36) U/L ALT (4-34) U/L Alkaline Phosphatase (38-126) U/L Total Protein (6.3-8.2) g/dL Procalcitonin (0.02-0.09) ng/mL EBV Capsid Ag IgG Intrp (NEGATIVE) EBV Nuc Ag IgG Interp (NEGATIVE) Microbiology - Last 24 Hours (Table) 08/02/21 12:27 Blood Culture - Preliminary Blood No Growth after 24 hours 08/02/21 12:27 Blood Culture - Preliminary Blood No Growth after 24 hours Assessment and Plan Assessment: Suspect intra-abdominal infection, with elevated liver enzymes and gastroenteritis. Improving Pericardial effusion , tamponade was ruled out Sepsis with fever, improving Elevated liver enzymes, improving End-stage renal disease on hemodialysis Hypertension with urgency on admission. Improving History of seizure disorder Insulin-dependent diabetes mellitus, with hyper glycemia and fluctuating glucose Diabetic neuropathy Diabetic retinopathy, patient is legally blind. Restless leg syndrome History of gastritis History of severe hypokalemia History of fluid retention of the abdomen and legs Plan: This is a pleasant 30 years old female who presents with pericardial effusion and possible tamponade and high fever. ESDR on hemodialysis cardiology and cardiothoracic surgery on the case for pericardial effusion, they recommended outpatient follow-up with echocardiogram in 3-4 weeks Patient currently kept on Zosyn, infectious disease team on the case, follow-up blood culture results Button Pusher on the case for dialysis Monitor blood pressure closely and continue with antihypertensive medication. Resume hydralazine and clonidine Keep monitoring glucose Labs and medication were reviewed.. Continue same treatment. Continue with symptomatic treatment. Resume home medication. Monitor lytes and vitals. DVT and GI prophylaxis. Further recommendations as per clinical course of the patient pognosis is guarded
[2021-08-04] MEDS: INSULIN DETEMIR (LEVEMIR) 100 UNIT/ML SYR SQ SCH (21:11)
[2021-08-04] MEDS: MELATONIN 5 MG TABLET PO PRN (21:12)
[2021-08-04] MEDS: cloNIDine HCL 0.2 MG TAB PO SCH (21:12)
[2021-08-05 02:02] LABS: Glucose,Whole Blood 317 mg/dL (75-99)
[2021-08-05 06:25] LABS: Glucose,Whole Blood 188 mg/dL (75-99)
[2021-08-05] MEDS: METOCLOPRAMIDE 10 MG TAB PO SCH ×4 (06:51→23:04)
[2021-08-05] MEDS: INSULIN ASPART (NovoLOG) 100 UNIT/ML VIAL SQ SCH ×4 (06:51→21:13)
[2021-08-05] MEDS: PANTOPRAZOLE 40 MG TABLET PO SCH ×2 (06:51→17:46)
[2021-08-05] MEDS: SEVELAMER 800 MG TAB PO SCH ×3 (06:51→17:46)
[2021-08-05 09:01] LABS: Basophils % (A) 1 %; Eosinophils # (A) 0.2 k/uL (0-0.7); Eosinophils % (A) 4 %; HCT 33.5 % (34.0-46.0); HGB 10.6 gm/dL (11.4-16.0); Lymphocytes # (A) 0.7 k/uL (1.0-4.8); Lymphocytes % (A) 15 %; MCH 29.9 pg (25.0-35.0); MCHC 31.6 g/dL (31.0-37.0); MCV 94.6 fL (80.0-100.0); Mean Platelet Volume 8.6; Monocytes # (A) 0.4 k/uL (0-1.0); Monocytes % (A) 9 %; Neutrophils # (A) 3.3 k/uL (1.3-7.7); Neutrophils % (A) 68 %; Platelet Count 228 k/uL (150-450); RBC 3.54 m/uL (3.80-5.40); RDW 14.1 % (11.5-15.5); WBC 4.9 k/uL (3.8-10.6)
[2021-08-05 09:18] LABS: Bilirubin, Delta 0.4 mg/dL (0.0-0.2); Bilirubin,Unconjugated 0.2 mg/dL (0.0-1.1); Calcium 9.2 mg/dL (8.4-10.2); Magnesium 2.3 mg/dL (1.6-2.3); Potassium 4.6 mmol/L (3.5-5.1); Total Bilirubin 0.6 mg/dL (0.2-1.3); Total Protein 6.8 g/dL (6.3-8.2)
[2021-08-05] MEDS: ESCITALOPRAM 20 MG TAB PO SCH (09:45)
[2021-08-05] MEDS: ASPIRIN 81 MG PO SCH (09:45)
[2021-08-05] MEDS: PIPERACILLIN-TAZOBACTAM 3.375 GM in SODIUM CHLORIDE 0.9% 100 ML IVPB SCH ×2 (09:45→21:08)
[2021-08-05] MEDS: cloNIDine HCL 0.2 MG TAB PO SCH (09:45)
[2021-08-05] MEDS: HEPARIN SODIUM,PORCINE/PF 5,000 UNIT/0.5 ML SYRINGE SQ SCH ×2 (09:50→21:14)
[2021-08-05] MEDS: diphenhydrAMINE ELIXIR 25 MG/10 ML CUP PO PRN ×2 (10:23→23:04)
--- NOTE | 2021-08-05 11:27 | P.PN ---
Subjective This is a pleasant 30 his CVA/TIA, Dialysis, Eye Disorder, Hypertension, Renal Disease, Seizure Disorder, ESRD with hemodialysis M/W/F, IDDM type 1, DKA, neuropathy bilateral legs/feet, diabetic retinopathy/legally blind, RLS, gastritis, severe hypokalemia, fluid retention in abdomin/legs. Patient presents because of vomiting frequently more than 1 cm hour, with diarrhea every 30 minutes as she describes. No blood in the vomiting or diarrhea which is watery. No abdominal pain and abdomen soft, she has some chest pain since yesterday the middle about 60/10 and she says is similar to blood pressure elevation before. Blood pressure on admission was elevated about 200/more than 100. No dyspnea but little dry cough. Little headache because of high blood pressure 6/10, no dizziness or weakness or numbness, she makes little urine with no dysuria. She denies smoking, alcohol or illicit drugs. She does not have PCP On admission patient has a fever off 103. rest of vitals looks stable, blood pressure is elevated on admission 209/110, currently better controlled with SBP 150s to 160s. CBC is unremarkable elevated creatinine as patient is hemodialysis patient. Lactic acid came back to normal at 1.2, glucose control. AST elevated 694 and ALT 202, bilirubin is normal at 1.2. Lipase 322. HCG is negative Viral panel was negative including coronavirus, hepatitis panel, influenza virus. As well as heterophile antibody. Chest x-ray showed cardiomegaly CT of the abdomen and pelvis showing pericardial effusion with possible pericardial tamponade Suspect hepatic periportal edema, please correlate with liver function test and hepatic viral serology. Fat stranding in the peritoneal with prominent lymph nodes and peritoneal reflection thickening peritonitis cannot exclude it. This could be secondary to mild acute pancreatitis or enteritis. Liver ultrasound: No acute process. Gallbladder surgically absent. Kidney atrophy 08/03/2021 Today patient looks more comfortable and relaxed, M bed with no chest pain or headache which is completely resolved with controlling of hers blood pressure. She denies chest pain dyspnea or coughing, no abdominal pain or vomiting. However she still has twice per day diarrhea. She makes little urine. She underwent hemodialysis today. Blood pressure improved and actually went down to 104/52, therefore we lowered her hydralazine 75 mg down to 50 mg, also withhold her clonidine 0.1 mg 3 times a day, we put holding parameters for Norvasc 10 mg at bedtime. Continue with Coreg 25 mg as well as hydralazine 50 mg 3 times a day and minoxidil 2.5 mg twice a day. WBC 3.3, hemoglobin 9.5, liver enzymes trending down with AST and draped and ALT 147. Patient is afebrile. No evidence of tamponade per vascular surgery 08/04/2021 Patient clinically improving each day and today she is ASYMPTOMATIC, she denies chest pain or headache or any other symptoms. Her diarrhea stopped. No vomiting and tolerates diet well. Blood pressure went up again and will resume her hydralazine and clonidine at 0.2 mg 3 times a day instead of home dose of 0.3. We'll keep monitoring. Her glucose is also were fluctuating, therefore we adjusted her insulin sliding scale with the nurse and we will monitor by tomorrow She remains on sy. Production. It was elevated 16.9, vital study is negative for acute infection, she has positive EBV IgG indicating chronic infection with IgM negative. Infectious disease team of the case. Repeat labs tomorrow Hemodialysis tomorrow per Patient Coordinator Front Desk Cartilages also on the case for pericardial effusion, no evidence of tamponade, cardiothoracic surgery recommended no surgical intervention. Fishing Vessel Operator recommended repeat echocardiogram in 3-4 weeks as an outpatient 08/06/2011 Patient clinically improving. No more vomiting or diarrhea, she tolerates diet well. No chest pain or headache. No other complaint. Blood pressure is still elevated today, it was low yesterday, currently her systolic blood pressure in 170 increase her dose of clonidine 0.2 up to 0.3 mg. Labs from today looks stable, she is undergoing hemodialysis. Production, stone and a still pending. He remains on [facility] infectious disease team on the case. Cardiology and cardiothoracic surgery on the case as well for pericardial effusion, suspicious for uremic pericarditis however patient is asymptomatic. Cardiology recommended a repeat echocardiogram in 3-4 weeks, patient informed and she agrees. Glucose was also controlled to this morning 188, we'll keep monitoring. Patient currently kept on home dose of Levemir 10 units at bedtime and insulin sliding scale Objective - Vital Signs Vital signs: Vital Signs Temp 98.6 F 08/05/21 08:00 Pulse 86 08/05/21 08:00 Resp 17 08/05/21 08:00 BP 174/86 08/05/21 08:00 Pulse Ox 100 08/05/21 08:00 Intake & Output 08/04/21 08/05/21 08/05/21 18:59 06:59 18:59 Intake Total 420 120 Output Total 3300 Balance -2880 120 Intake: Oral 120 120 Hemodialysis 300 Output: Hemodialysis 3300 - Exam GENERAL: The patient is alert and oriented x3, not in any acute distress. Well developed, well nourished. HEENT: Pupils are round and equally reacting to light. EOMI. No scleral icterus. No conjunctival pallor. Normocephalic, atraumatic. No pharyngeal erythema. No thyromegaly. CARDIOVASCULAR: S1 and S2 present. No murmurs, rubs, or gallops. PULMONARY: Chest is clear to auscultation, no wheezing or crackles. ABDOMEN: Soft, nontender, nondistended, normoactive bowel sounds. No palpable organomegaly. MUSCULOSKELETAL: No joint swelling or deformity. EXTREMITIES: No cyanosis, clubbing, or pedal edema. NEUROLOGICAL: Gross neurological examination did not reveal any focal deficits. SKIN: No rashes. no petechiae. - Labs CBC & Chem 7: 08/05/21 08:31 08/05/21 08:31 Labs: Abnormal Lab Results - Last 24 Hours (Table) 08/04/21 08/04/21 08/04/21 Range/Units 11:38 16:52 20:15 RBC (3.80-5.40) m/uL Hgb (11.4-16.0) gm/dL Hct (34.0-46.0) % Lymphocytes # (1.0-4.8) k/uL BUN (7-17) mg/dL Creatinine (0.52-1.04) mg/dL Glucose (74-99) mg/dL POC Glucose (mg/dL) 254 H 386 H 388 H (75-99) mg/dL Delta Bilirubin (0.0-0.2) mg/dL ALT (4-34) U/L Alkaline Phosphatase (38-126) U/L 08/05/21 08/05/21 08/05/21 Range/Units 02:00 06:11 08:31 RBC 3.54 L (3.80-5.40) m/uL Hgb 10.6 L (11.4-16.0) gm/dL Hct 33.5 L (34.0-46.0) % Lymphocytes # 0.7 L (1.0-4.8) k/uL BUN (7-17) mg/dL Creatinine (0.52-1.04) mg/dL Glucose (74-99) mg/dL POC Glucose (mg/dL) 317 H 188 H (75-99) mg/dL Delta Bilirubin (0.0-0.2) mg/dL ALT (4-34) U/L Alkaline Phosphatase (38-126) U/L 08/05/21 Range/Units 08:31 RBC (3.80-5.40) m/uL Hgb (11.4-16.0) gm/dL Hct (34.0-46.0) % Lymphocytes # (1.0-4.8) k/uL BUN 24 H (7-17) mg/dL Creatinine 5.04 H (0.52-1.04) mg/dL Glucose 125 H (74-99) mg/dL POC Glucose (mg/dL) (75-99) mg/dL Delta Bilirubin 0.4 H (0.0-0.2) mg/dL ALT 95 H (4-34) U/L Alkaline Phosphatase 141 H (38-126) U/L Microbiology - Last 24 Hours (Table) 08/02/21 12:27 Blood Culture - Preliminary Blood No Growth after 48 hours 08/02/21 12:27 Blood Culture - Preliminary Blood No Growth after 48 hours Assessment and Plan Assessment: Suspect intra-abdominal infection, with elevated liver enzymes and gastroenteritis. Improving Pericardial effusion , tamponade was ruled out Sepsis with fever, improving Elevated liver enzymes, improving End-stage renal disease on hemodialysis Hypertension with urgency on admission. Improving History of seizure disorder Insulin-dependent diabetes mellitus, with hyper glycemia and fluctuating glucose Diabetic neuropathy Diabetic retinopathy, patient is legally blind. Restless leg syndrome History of gastritis History of severe hypokalemia History of fluid retention of the abdomen and legs Plan: This is a pleasant 30 years old female who presents with pericardial effusion and possible tamponade and high fever. ESDR on hemodialysis cardiology and cardiothoracic surgery on the case for pericardial effusion, they recommended outpatient follow-up with echocardiogram in 3-4 weeks, patient informed and agreed Patient currently kept on Zosyn, infectious disease team on the case, follow-up blood culture results Patient Coordinator Front Desk on the case for dialysis Monitor blood pressure closely and continue with antihypertensive medication. Resume hydralazine and clonidine Keep monitoring glucose Labs and medication were reviewed.. Continue same treatment. Continue with symptomatic treatment. Resume home medication. Monitor lytes and vitals. DVT and GI prophylaxis. Further recommendations as per clinical course of the patient pognosis is guarded
[2021-08-05 11:45] LABS: Glucose,Whole Blood 161 mg/dL (75-99)
--- NOTE | 2021-08-05 11:58 | P.PN ---
Subjective Patient is seen for follow-up for end-stage renal disease. She was admitted to the hospital with nausea vomiting and diarrhea. Patient was noted to have large pericardial effusion along with pleural effusion with significantly elevated blood pressure which responded very well to dialysis. No evidence of tamponade on echocardiogram Patient has had consecutive treatments No significant complaints today. No nausea or vomiting noted patient has been tolerating oral intake. She is seen on hemodialysis again today. Blood pressure was high currently improving. She did get 1 dose of clonidine. Objective - Vital Signs Vital signs: Vital Signs Temp 98.6 F 08/05/21 08:00 Pulse 86 08/05/21 08:00 Resp 17 08/05/21 08:00 BP 174/86 08/05/21 08:00 Pulse Ox 100 08/05/21 08:00 Intake & Output 08/04/21 08/05/21 08/05/21 18:59 06:59 18:59 Intake Total 420 120 Output Total 3300 Balance -2880 120 Intake: Oral 120 120 Hemodialysis 300 Output: Hemodialysis 3300 - Exam Agent is awake comfortable. Alert and oriented 3. Examination of the heart S1 and S2 Examination lungs bilateral breath sounds are heard Abdomen is soft nontender Examination lower extremity shows no evidence of edema WATER PUMPING STATION ENGINEER exam grossly intact - Labs CBC & Chem 7: 08/05/21 08:31 08/05/21 08:31 Labs: Abnormal Lab Results - Last 24 Hours (Table) 08/04/21 08/04/21 08/05/21 Range/Units 16:52 20:15 02:00 RBC (3.80-5.40) m/uL Hgb (11.4-16.0) gm/dL Hct (34.0-46.0) % Lymphocytes # (1.0-4.8) k/uL BUN (7-17) mg/dL Creatinine (0.52-1.04) mg/dL Glucose (74-99) mg/dL POC Glucose (mg/dL) 386 H 388 H 317 H (75-99) mg/dL Delta Bilirubin (0.0-0.2) mg/dL ALT (4-34) U/L Alkaline Phosphatase (38-126) U/L 08/05/21 08/05/21 08/05/21 Range/Units 06:11 08:31 08:31 RBC 3.54 L (3.80-5.40) m/uL Hgb 10.6 L (11.4-16.0) gm/dL Hct 33.5 L (34.0-46.0) % Lymphocytes # 0.7 L (1.0-4.8) k/uL BUN 24 H (7-17) mg/dL Creatinine 5.04 H (0.52-1.04) mg/dL Glucose 125 H (74-99) mg/dL POC Glucose (mg/dL) 188 H (75-99) mg/dL Delta Bilirubin 0.4 H (0.0-0.2) mg/dL ALT 95 H (4-34) U/L Alkaline Phosphatase 141 H (38-126) U/L 08/05/21 Range/Units 11:43 RBC (3.80-5.40) m/uL Hgb (11.4-16.0) gm/dL Hct (34.0-46.0) % Lymphocytes # (1.0-4.8) k/uL BUN (7-17) mg/dL Creatinine (0.52-1.04) mg/dL Glucose (74-99) mg/dL POC Glucose (mg/dL) 161 H (75-99) mg/dL Delta Bilirubin (0.0-0.2) mg/dL ALT (4-34) U/L Alkaline Phosphatase (38-126) U/L Microbiology - Last 24 Hours (Table) 08/02/21 12:27 Blood Culture - Preliminary Blood No Growth after 48 hours 08/02/21 12:27 Blood Culture - Preliminary Blood No Growth after 48 hours Assessment and Plan Assessment: 1. End-stage renal disease on hemodialysis on a Monday schedule 2. Volume overload 3. Large pericardial effusion with pleural effusion most likely component of generalized volume overload. Uremic pericarditis is a consideration. Patient is currently being dialyzed on a daily basis with aggressive ultrafiltration. We were not able to remove much fluid yesterday as her blood pressure was low. Check antihistone antibody for possibility of pericardial effusion related to hydralazine. 4. Nausea and vomiting along with diarrhea currently resolved 5. Hypertension partly volume sensitive currently improved. Antihypertensive medications were decreased. Plan: Hemodialysis today and then again in a.m. Check antihistone antibody for possibility of pericardial effusion related to hydralazine
[2021-08-05] MEDS: hydrALAZINE HCL 25 MG TAB PO SCH ×3 (12:22→23:04)
[2021-08-05] MEDS: minoxidiL 2.5 MG TAB PO SCH ×2 (12:23→21:14)
[2021-08-05] MEDS: MORPHINE SULFATE 2 MG/ML SYRINGE IVP PRN (12:23)
[2021-08-05] MEDS: carvediloL 12.5 MG TAB PO SCH ×2 (12:23→21:14)
--- NOTE | 2021-08-05 12:25 | P.PN ---
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 She does not follow with a technical specialist cytology. She states she has a new primary care provider, but does not know the name or has followed up. Patient presented to the hospital with complaints of nausea, vomiting, diarrhea. Cardiology consulted for pericardial effusion. There is no prior history of coronary artery disease or congestive heart failure. An echocardiogram that was performed on this admission shows large pericardial effusion without any evidence of tamponade. Patient had an echo done in May of this CN that revealed a small pericardial effusion. Patient seen at bedside, she denies any complaints. She denies any further symptoms of nausea, vomiting, diarrhea. She has no shortness of breath, chest pain, symptoms of orthopnea or PND she is euvolemic on exam. She had hemodialysis with 2L removed. Blood pressure is elevated. Labs re viewed. Patient started on clonidine 0.3mg TID and hydralazine 75mg TID Patient currently maintained on amlodipine 10 mg nightly, aspirin 81 mg daily, carvedilol 25 mg twice a day, Imdur 30 mg daily GENERAL: Well-appearing, well-nourished and in no acute distress. NECK: Supple without JVD or thyromegaly. LUNGS: Breath sounds clear to auscultation bilaterally. Respiration equal and unlabored. No wheezes, rales or rhonchi. HEART: Regular rate and rhythm without murmurs, rubs or gallops. S1 and S2 heard. EXTREMITIES: Normal range of motion, no edema. No clubbing or cyanosis. Peripheral pulses intact. ASSESSMENT Large pericardial effusion without tamponade physiology Nausea/vomiting/diarrhea present on admission Hypertensive heart disease End-stage renal disease on hemodialysis Type 1 diabetes with history of DKA and associated retinopathy and neuropathy History of CVA/TIA PLAN Repeat 2D echocardiogram tomorrow Clonidine and hydralazine added per primary for blood pressure control, will monitor response Patient is currently not in tamponade not clinically, patient is not sympto matic, no tamponade physiology is present, hemodynamically stable. CT surgery evaluated the patient and no indication for surgery at this time. Recommend repeat echocardiogram in 3-4 weeks Plan for dialysis today. Further recommendations based on clinical course Nurse Practitioner note has been reviewed, I agree with a documented findings and plan of care. Patient was seen and examined. Objective - Vital Signs Vital signs: Vital Signs Temp 98.4 F 08/05/21 12:20 Pulse 90 08/05/21 12:20 Resp 18 08/05/21 12:20 BP 140/78 08/05/21 12:20 Pulse Ox 100 08/05/21 08:00 Intake & Output 08/04/21 08/05/21 08/05/21 18:59 06:59 18:59 Intake Total 420 120 Output Total 3300 2000 Balance -2880 -1880 Intake: Oral 120 120 Hemodialysis 300 Output: Hemodialysis 3300 2000 - Labs CBC & Chem 7: 08/05/21 08:31 08/05/21 08:31 Labs: Abnormal Lab Results - Last 24 Hours (Table) 08/04/21 08/04/21 08/05/21 Range/Units 16:52 20:15 02:00 RBC (3.80-5.40) m/uL Hgb (11.4-16.0) gm/dL Hct (34.0-46.0) % Lymphocytes # (1.0-4.8) k/uL BUN (7-17) mg/dL Creatinine (0.52-1.04) mg/dL Glucose (74-99) mg/dL POC Glucose (mg/dL) 386 H 388 H 317 H (75-99) mg/dL Delta Bilirubin (0.0-0.2) mg/dL ALT (4-34) U/L Alkaline Phosphatase (38-126) U/L 08/05/21 08/05/21 08/05/21 Range/Units 06:11 08:31 08:31 RBC 3.54 L (3.80-5.40) m/uL Hgb 10.6 L (11.4-16.0) gm/dL Hct 33.5 L (34.0-46.0) % Lymphocytes # 0.7 L (1.0-4.8) k/uL BUN 24 H (7-17) mg/dL Creatinine 5.04 H (0.52-1.04) mg/dL Glucose 125 H (74-99) mg/dL POC Glucose (mg/dL) 188 H (75-99) mg/dL Delta Bilirubin 0.4 H (0.0-0.2) mg/dL ALT 95 H (4-34) U/L Alkaline Phosphatase 141 H (38-126) U/L 08/05/21 Range/Units 11:43 RBC (3.80-5.40) m/uL Hgb (11.4-16.0) gm/dL Hct (34.0-46.0) % Lymphocytes # (1.0-4.8) k/uL BUN (7-17) mg/dL Creatinine (0.52-1.04) mg/dL Glucose (74-99) mg/dL POC Glucose (mg/dL) 161 H (75-99) mg/dL Delta Bilirubin (0.0-0.2) mg/dL ALT (4-34) U/L Alkaline Phosphatase (38-126) U/L Microbiology - Last 24 Hours (Table) 08/02/21 12:27 Blood Culture - Preliminary Blood No Growth after 48 hours 08/02/21 12:27 Blood Culture - Preliminary Blood No Growth after 48 hours
[2021-08-05] MEDS: cloNIDine HCL 0.1 MG TAB PO SCH ×2 (15:53→23:05)
[2021-08-05 17:05] LABS: Glucose,Whole Blood 527 mg/dL (75-99)
[2021-08-05 17:06] LABS: Glucose,Whole Blood 514 mg/dL (75-99)
[2021-08-05 20:20] LABS: Glucose,Whole Blood 421 mg/dL (75-99)
[2021-08-05] MEDS ORDERED: INSULIN DETEMIR (LEVEMIR) 100 UNIT/ML SYR SQ SCH (21:00)
[2021-08-05] MEDS: MELATONIN 5 MG TABLET PO PRN (21:14)
[2021-08-05] MEDS: amLODIPine 10 MG TAB PO SCH (21:14)
[2021-08-05] MEDS: ISOSORBIDE MONONITRATE ER 30 MG TAB.ER.24H PO SCH (21:14)
--- NOTE | 2021-08-05 22:11 | P.PN ---
Subjective Progress Note Date: 08/04/21 Principal diagnosis: Fever Patient is a 30 year old female with a past medical history significant for end-stage renal disease on hemodialysis through the left arm AV fistula, presented to the hospital acute nausea vomiting diarrhea and did have a fever. On today's evaluation that is 08/04/2021, the patient is afebrile, patient denies any nausea or vomiting, the patient denies any abdominal pain and no further diarrhea the patient denies having any chest pain or shortness of breath or cough Objective - Vital Signs Vital signs: Vital Signs Temp 98.4 F 08/04/21 04:41 Pulse 76 08/04/21 04:41 Resp 18 08/04/21 04:41 BP 140/69 08/04/21 04:41 Pulse Ox 96 08/04/21 04:41 Intake & Output 08/03/21 08/04/21 08/04/21 18:59 06:59 18:59 Intake Total 840 540 Output Total 500 Balance 340 540 Weight 47.627 kg Intake: Oral 540 540 Hemodialysis 300 Output: Hemodialysis 500 Other: # Voids 0 - Exam GENERAL DESCRIPTION: Middle-age female lying in bed in no distress RESPIRATORY SYSTEM: Unlabored breathing , decreased breath sounds at bases HEART: S1 S2 regular rate and rhythm , ABDOMEN: Soft , no tenderness EXTREMITIES: No edema feet - Labs CBC & Chem 7: 08/05/21 08:31 08/05/21 08:31 Labs: Abnormal Lab Results - Last 24 Hours (Table) 08/03/21 08/03/21 08/03/21 Range/Units 08:31 08:31 11:28 Sodium (137-145) mmol/L Chloride (98-107) mmol/L Carbon Dioxide (22-30) mmol/L BUN (7-17) mg/dL Creatinine (0.52-1.04) mg/dL Glucose (74-99) mg/dL POC Glucose (mg/dL) 140 H (75-99) mg/dL AST (14-36) U/L ALT (4-34) U/L Alkaline Phosphatase (38-126) U/L Total Protein (6.3-8.2) g/dL Procalcitonin 20.60 H (0.02-0.09) ng/mL EBV Capsid Ag IgG Intrp POSITIVE A (NEGATIVE) EBV Nuc Ag IgG Interp POSITIVE A (NEGATIVE) 08/03/21 08/03/21 08/03/21 Range/Units 16:42 17:37 18:40 Sodium 136 L (137-145) mmol/L Chloride 96 L (98-107) mmol/L Carbon Dioxide 18 L (22-30) mmol/L BUN 25 H (7-17) mg/dL Creatinine 3.70 H (0.52-1.04) mg/dL Glucose 507 H* (74-99) mg/dL POC Glucose (mg/dL) 427 H 456 H (75-99) mg/dL AST 70 H (14-36) U/L ALT 133 H (4-34) U/L Alkaline Phosphatase 165 H (38-126) U/L Total Protein 6.2 L (6.3-8.2) g/dL Procalcitonin (0.02-0.09) ng/mL EBV Capsid Ag IgG Intrp (NEGATIVE) EBV Nuc Ag IgG Interp (NEGATIVE) 08/03/21 08/03/21 08/04/21 Range/Units 19:50 21:27 02:04 Sodium (137-145) mmol/L Chloride (98-107) mmol/L Carbon Dioxide (22-30) mmol/L BUN (7-17) mg/dL Creatinine (0.52-1.04) mg/dL Glucose (74-99) mg/dL POC Glucose (mg/dL) 408 H 281 H 46 L (75-99) mg/dL AST (14-36) U/L ALT (4-34) U/L Alkaline Phosphatase (38-126) U/L Total Protein (6.3-8.2) g/dL Procalcitonin (0.02-0.09) ng/mL EBV Capsid Ag IgG Intrp (NEGATIVE) EBV Nuc Ag IgG Interp (NEGATIVE) 08/04/21 08/04/21 08/04/21 Range/Units 02:19 02:41 05:58 Sodium (137-145) mmol/L Chloride (98-107) mmol/L Carbon Dioxide (22-30) mmol/L BUN (7-17) mg/dL Creatinine (0.52-1.04) mg/dL Glucose (74-99) mg/dL POC Glucose (mg/dL) 37 L 110 H 67 L (75-99) mg/dL AST (14-36) U/L ALT (4-34) U/L Alkaline Phosphatase (38-126) U/L Total Protein (6.3-8.2) g/dL Procalcitonin (0.02-0.09) ng/mL EBV Capsid Ag IgG Intrp (NEGATIVE) EBV Nuc Ag IgG Interp (NEGATIVE) 08/04/21 08/04/21 Range/Units 06:18 08:48 Sodium (137-145) mmol/L Chloride (98-107) mmol/L Carbon Dioxide (22-30) mmol/L BUN (7-17) mg/dL Creatinine (0.52-1.04) mg/dL Glucose (74-99) mg/dL POC Glucose (mg/dL) 67 L 165 H (75-99) mg/dL AST (14-36) U/L ALT (4-34) U/L Alkaline Phosphatase (38-126) U/L Total Protein (6.3-8.2) g/dL Procalcitonin (0.02-0.09) ng/mL EBV Capsid Ag IgG Intrp (NEGATIVE) EBV Nuc Ag IgG Interp (NEGATIVE) Microbiology - Last 24 Hours (Table) 08/02/21 12:27 Blood Culture - Preliminary Blood No Growth after 24 hours 08/02/21 12:27 Blood Culture - Preliminary Blood No Growth after 24 hours Assessment and Plan (1) Fever Current Visit: Yes Status: Acute Code(s): R50.9 - FEVER, UNSPECIFIED SNOMED Code(s): 785241076 Plan: 1patient presented to hospital with acute vomiting diarrhea and did have a fever and this patient did have abnormal CT abdominal pelvis with evidence of possible pericardial effusion and tamponade phenomena for which cardiology has been consulted patient also have elevated liver enzymes however the patient have a normal white count with lymphopenia concerning for possible viral syndrome. 2initial viral testing including Covid influenza and hepatitis panel has been negative. 3 EBV and CMV serology are currently pending. 4patient will continue with empiric Zosyn in view of clinical improvement and resolution of fever 5 stool studies were not collected Time with Patient: Less than 30
--- NOTE | 2021-08-05 22:13 | P.PN ---
Subjective Progress Note Date: 08/05/21 Principal diagnosis: Fever Patient is a 30 year old female with a past medical history significant for end-stage renal disease on hemodialysis through the left arm AV fistula, presented to the hospital acute nausea vomiting diarrhea and did have a fever. On today's evaluation that is 08/05/2021, the patient remains to be afebrile, patient denies nausea or vomiting, the patient denies any abdominal pain or diarrhea the patient denies having any chest pain or shortness of breath or cough and is currently breathing comfortably on room air Objective - Vital Signs Vital signs: Vital Signs Temp 98.6 F 08/05/21 08:00 Pulse 86 08/05/21 08:00 Resp 17 08/05/21 08:00 BP 174/86 08/05/21 08:00 Pulse Ox 100 08/05/21 08:00 Intake & Output 08/04/21 08/05/21 08/05/21 18:59 06:59 18:59 Intake Total 420 120 Output Total 3300 Balance -2880 120 Intake: Oral 120 120 Hemodialysis 300 Output: Hemodialysis 3300 - Exam GENERAL DESCRIPTION: Middle-age female lying in bed in no distress RESPIRATORY SYSTEM: Unlabored breathing , decreased breath sounds at bases HEART: S1 S2 regular rate and rhythm , ABDOMEN: Soft , no tenderness EXTREMITIES: No edema feet - Labs CBC & Chem 7: 08/05/21 08:31 08/05/21 08:31 Labs: Abnormal Lab Results - Last 24 Hours (Table) 08/04/21 08/04/21 08/04/21 Range/Units 11:38 16:52 20:15 RBC (3.80-5.40) m/uL Hgb (11.4-16.0) gm/dL Hct (34.0-46.0) % Lymphocytes # (1.0-4.8) k/uL BUN (7-17) mg/dL Creatinine (0.52-1.04) mg/dL Glucose (74-99) mg/dL POC Glucose (mg/dL) 254 H 386 H 388 H (75-99) mg/dL Delta Bilirubin (0.0-0.2) mg/dL ALT (4-34) U/L Alkaline Phosphatase (38-126) U/L 08/05/21 08/05/21 08/05/21 Range/Units 02:00 06:11 08:31 RBC 3.54 L (3.80-5.40) m/uL Hgb 10.6 L (11.4-16.0) gm/dL Hct 33.5 L (34.0-46.0) % Lymphocytes # 0.7 L (1.0-4.8) k/uL BUN (7-17) mg/dL Creatinine (0.52-1.04) mg/dL Glucose (74-99) mg/dL POC Glucose (mg/dL) 317 H 188 H (75-99) mg/dL Delta Bilirubin (0.0-0.2) mg/dL ALT (4-34) U/L Alkaline Phosphatase (38-126) U/L 08/05/21 Range/Units 08:31 RBC (3.80-5.40) m/uL Hgb (11.4-16.0) gm/dL Hct (34.0-46.0) % Lymphocytes # (1.0-4.8) k/uL BUN 24 H (7-17) mg/dL Creatinine 5.04 H (0.52-1.04) mg/dL Glucose 125 H (74-99) mg/dL POC Glucose (mg/dL) (75-99) mg/dL Delta Bilirubin 0.4 H (0.0-0.2) mg/dL ALT 95 H (4-34) U/L Alkaline Phosphatase 141 H (38-126) U/L Microbiology - Last 24 Hours (Table) 08/02/21 12:27 Blood Culture - Preliminary Blood No Growth after 48 hours 08/02/21 12:27 Blood Culture - Preliminary Blood No Growth after 48 hours Assessment and Plan (1) Fever Current Visit: Yes Status: Acute Code(s): R50.9 - FEVER, UNSPECIFIED SNOMED Code(s): 171986924 Plan: 1patient presented to hospital with acute vomiting diarrhea and did have a fever and this patient did have abnormal CT abdominal pelvis with evidence of possible pericardial effusion and tamponade phenomena for which cardiology has been consulted patient also have elevated liver enzymes however the patient have a normal white count with lymphopenia concerning for possible viral syndrome. 2initial viral testing including Covid influenza and hepatitis panel has been negative. 3 EBV IgG is positive IgM is negative and CMV serology negative 4patient did have elevated pro-calcitonin and the patient clinically improved with empiric Zosyn which will be continued while inpatient and transitioned to short course of oral Augmentin on discharge Time with Patient: Less than 30
[2021-08-06 02:22] LABS: Glucose,Whole Blood 232 mg/dL (75-99)
[2021-08-06] MEDS: METOCLOPRAMIDE 10 MG TAB PO SCH ×3 (06:05→18:06)
[2021-08-06 07:10] LABS: Glucose,Whole Blood 287 mg/dL (75-99)
--- NOTE | 2021-08-06 08:17 | ECHOF ---
Referral Reason:repeat to evaluate pericardial effusion MEASUREMENTS -------- HEIGHT: 162.6 cm WEIGHT: 47.6 kg BP: FINDINGS -------- Limited Study There is a small to moderate, generalized pericardial effusion present. CONCLUSIONS -------- 1. Limited Study 2. There is a small to moderate, generalized pericardial effusion present. Improved from 08/02/21 LABORER OPERATOR: Chayo Barney RDCS
[2021-08-06] MEDS: ASPIRIN 81 MG PO SCH (08:24)
[2021-08-06] MEDS: PANTOPRAZOLE 40 MG TABLET PO SCH ×2 (08:24→18:02)
[2021-08-06] MEDS: INSULIN ASPART (NovoLOG) 100 UNIT/ML VIAL SQ SCH ×4 (08:24→21:20)
[2021-08-06] MEDS: ESCITALOPRAM 20 MG TAB PO SCH (08:25)
[2021-08-06] MEDS: SEVELAMER 800 MG TAB PO SCH ×3 (08:25→18:02)
[2021-08-06] MEDS: PIPERACILLIN-TAZOBACTAM 3.375 GM in SODIUM CHLORIDE 0.9% 100 ML IVPB SCH ×2 (08:25→21:23)
[2021-08-06 09:37] LABS: Glucose,Whole Blood 248 mg/dL (75-99)
[2021-08-06] MEDS ORDERED: INSULIN DETEMIR (LEVEMIR) 100 UNIT/ML SYR SQ ONE (10:15)
[2021-08-06] MEDS: HEPARIN SODIUM,PORCINE/PF 5,000 UNIT/0.5 ML SYRINGE SQ SCH ×2 (10:21→21:20)
--- NOTE | 2021-08-06 11:23 | P.PN ---
Subjective Progress Note Date: 08/06/21 HISTORY OF PRESENT ILLNESS: The patient is a 30-year-old female with past medical history of type 1 diabetes, end-stage renal disease on dialysis, legally blind secondary to diabetic retinopathy, hypertension, and prior TIA. She does not follow with a front end technician. She states she has a new primary care provider, but does not know the name or has followed up. Patient presented to the hospital with complaints of nausea, vomiting, diarrhea. Cardiology consulted for pericardial effusion. There is no prior history of coronary artery disease or congestive heart failure. An echocardiogram that was performed on this admission shows large pericardial effusion without any evidence of tamponade. Patient had an echo done in May of this CN that revealed a small pericardial effusion. Patient seen at bedside, she denies any complaints. She denies any further symptoms of nausea, vomiting, diarrhea. She has no shortness of breath, chest pain, symptoms of orthopnea or PND she is euvolemic on exam. She had hemodialysis with 2L removed. Blood pressure is elevated. Labs review ed. Patient started on clonidine 0.3mg TID and hydralazine 75mg TID Patient currently maintained on amlodipine 10 mg nightly, aspirin 81 mg daily, carvedilol 25 mg twice a day, Imdur 30 mg daily 08/06/2021 Patient examined this morning at the bedside. Patient denies chest pain or pressure. She denies shortness of breath. A repeat echocardiogram completed today reveals [id number] steel box toe inserter pericardial effusion. Improved from echocardiogram on 08/02/2021. PHYSICAL EXAM: VITAL SIGNS: Reviewed. GENERAL: Well-developed in no acute distress. NECK: Supple. No JVD or thyromegaly LUNGS: Respirations even and unlabored. Lungs essentially clear to auscultation bilaterally. HEART: Regular rate and rhythm. S1 and S2 heard. EXTREMITIES: Normal range of motion. No clubbing or cyanosis. Peripheral pulses intact. No lower extremity edema ASSESSMENT: Large pericardial effusion without tamponade physiology Nausea/vomiting/diarrhea present on admission Hypertensive heart disease End-stage renal disease on hemodialysis Type 1 diabetes with history of DKA and associated retinopathy and neuropathy History of CVA/TIA PLAN: Continue current cardiac medications No further inpatient recommendations from a cardiac standpoint Patient may be discharged home today and follow up on an outpatient basis. Nurse practitioner note has been reviewed by physician. Signing provider agrees with the documented findings, assessment, and plan of care. Objective - Vital Signs Vital signs: Vital Signs Temp 98.4 F 08/06/21 04:18 Pulse 79 08/06/21 04:18 Resp 16 08/06/21 04:18 BP 110/58 08/06/21 04:18 Pulse Ox 94 L 08/06/21 04:18 Intake & Output 08/05/21 08/06/21 08/06/21 18:59 06:59 18:59 Intake Total 240 460 Output Total 1999 Balance -1760 460 Intake: Intake, IV Titration 100 Amount Piperacillin-Tazobactam 3 100 .375 gm In Sodium Chloride 0.9% 100 ml @ 25 mls/hr IVPB Q12HR [facility] Rx #:[id number] Oral 240 360 Output: Hemodialysis 1999 Other: # Voids 0 1 # Bowel Movements 1 - Labs CBC & Chem 7: 08/05/21 08:31 08/05/21 08:31 Labs: Abnormal Lab Results - Last 24 Hours (Table) 08/05/21 08/05/21 08/05/21 Range/Units 08:31 11:43 17:01 POC Glucose (mg/dL) 161 H 527 H (75-99) mg/dL Procalcitonin 15.80 H (0.02-0.09) ng/mL 08/05/21 08/05/21 08/06/21 Range/Units 17:03 20:17 02:14 POC Glucose (mg/dL) 514 H 421 H 232 H (75-99) mg/dL Procalcitonin (0.02-0.09) ng/mL 08/06/21 08/06/21 Range/Units 07:08 09:35 POC Glucose (mg/dL) 287 H 248 H (75-99) mg/dL Procalcitonin (0.02-0.09) ng/mL Microbiology - Last 24 Hours (Table) 08/02/21 12:27 Blood Culture - Preliminary Blood No Growth after 72 hours 08/02/21 12:27 Blood Culture - Preliminary Blood No Growth after 72 hours
[2021-08-06] MEDS ORDERED: diphenhydrAMINE 50 MG/ML 1 ML VIAL IVP STA (11:44)
[2021-08-06 11:49] LABS: Glucose,Whole Blood 123 mg/dL (75-99)
[2021-08-06] MEDS: cloNIDine HCL 0.1 MG TAB PO SCH ×3 (14:48→21:22)
[2021-08-06] MEDS: carvediloL 12.5 MG TAB PO SCH ×2 (14:48→21:21)
[2021-08-06] MEDS: minoxidiL 2.5 MG TAB PO SCH ×2 (14:48→21:39)
[2021-08-06] MEDS: hydrALAZINE HCL 25 MG TAB PO SCH ×3 (14:48→21:23)
[2021-08-06 17:24] LABS: Glucose,Whole Blood 433 mg/dL (75-99)
[2021-08-06] MEDS: ACETAMINOPHEN TAB 325 MG TAB PO PRN (18:06)
[2021-08-06] MEDS ORDERED: INSULIN DETEMIR (LEVEMIR) 100 UNIT/ML SYR SQ SCH (21:00)
[2021-08-06 21:04] LABS: Glucose,Whole Blood 505 mg/dL (75-99)
[2021-08-06] MEDS: amLODIPine 10 MG TAB PO SCH (21:21)
[2021-08-06] MEDS: ISOSORBIDE MONONITRATE ER 30 MG TAB.ER.24H PO SCH (21:21)
[2021-08-06] MEDS: MELATONIN 5 MG TABLET PO PRN (21:23)
--- NOTE | 2021-08-06 21:26 | P.PN ---
Subjective This is a pleasant 30 his CVA/TIA, Dialysis, Eye Disorder, Hypertension, Renal Disease, Seizure Disorder, ESRD with hemodialysis M/W/F, IDDM type 1, DKA, neuropathy bilateral legs/feet, diabetic retinopathy/legally blind, RLS, gastritis, severe hypokalemia, fluid retention in abdomin/legs. Patient presents because of vomiting frequently more than 1 cm hour, with diarrhea every 30 minutes as she describes. No blood in the vomiting or diarrhea which is watery. No abdominal pain and abdomen soft, she has some chest pain since yesterday the middle about 60/10 and she says is similar to blood pressure elevation before. Blood pressure on admission was elevated about 200/more than 100. No dyspnea but little dry cough. Little headache because of high blood pressure 6/10, no dizziness or weakness or numbness, she makes little urine with no dysuria. She denies smoking, alcohol or illicit drugs. She does not have PCP On admission patient has a fever off 103. rest of vitals looks stable, blood pressure is elevated on admission 209/110, currently better controlled with SBP 150s to 160s. CBC is unremarkable elevated creatinine as patient is hemodialysis patient. Lactic acid came back to normal at 1.2, glucose control. AST elevated 694 and ALT 202, bilirubin is normal at 1.2. Lipase 322. HCG is negative Viral panel was negative including coronavirus, hepatitis panel, influenza virus. As well as heterophile antibody. Chest x-ray showed cardiomegaly CT of the abdomen and pelvis showing pericardial effusion with possible pericardial tamponade Suspect hepatic periportal edema, please correlate with liver function test and hepatic viral serology. Fat stranding in the peritoneal with prominent lymph nodes and peritoneal reflection thickening peritonitis cannot exclude it. This could be secondary to mild acute pancreatitis or enteritis. Liver ultrasound: No acute process. Gallbladder surgically absent. Kidney atrophy 08/03/2021 Today patient looks more comfortable and relaxed, M bed with no chest pain or headache which is completely resolved with controlling of hers blood pressure. She denies chest pain dyspnea or coughing, no abdominal pain or vomiting. However she still has twice per day diarrhea. She makes little urine. She underwent hemodialysis today. Blood pressure improved and actually went down to 104/52, therefore we lowered her hydralazine 75 mg down to 50 mg, also withhold her clonidine 0.1 mg 3 times a day, we put holding parameters for Norvasc 10 mg at bedtime. Continue with Coreg 25 mg as well as hydralazine 50 mg 3 times a day and minoxidil 2.5 mg twice a day. WBC 3.3, hemoglobin 9.5, liver enzymes trending down with AST and draped and ALT 147. Patient is afebrile. No evidence of tamponade per vascular surgery 08/04/2021 Patient clinically improving each day and today she is ASYMPTOMATIC, she denies chest pain or headache or any other symptoms. Her diarrhea stopped. No vomiting and tolerates diet well. Blood pressure went up again and will resume her hydralazine and clonidine at 0.2 mg 3 times a day instead of home dose of 0.3. We'll keep monitoring. Her glucose is also were fluctuating, therefore we adjusted her insulin sliding scale with the nurse and we will monitor by tomorrow She remains on Zosy. Production. It was elevated 16.9, vital study is negative for acute infection, she has positive EBV IgG indicating chronic infection with IgM negative. Infectious disease team of the case. Repeat labs tomorrow Hemodialysis tomorrow per Employment Trainer Cartilages also on the case for pericardial effusion, no evidence of tamponade, cardiothoracic surgery recommended no surgical intervention. Weather Anchor recommended repeat echocardiogram in 3-4 weeks as an outpatient 08/06/2011 Patient clinically improving. No more vomiting or diarrhea, she tolerates diet well. No chest pain or headache. No other complaint. Blood pressure is still elevated today, it was low yesterday, currently her systolic blood pressure in 170 increase her dose of clonidine 0.2 up to 0.3 mg. Labs from today looks stable, she is undergoing hemodialysis. Production, stone and a still pending. He remains on [facility] infectious disease team on the case. Cardiology and cardiothoracic surgery on the case as well for pericardial effusion, suspicious for uremic pericarditis however patient is asymptomatic. Cardiology recommended a repeat echocardiogram in 3-4 weeks, patient informed and she agrees. Glucose was also controlled to this morning 188, we'll keep monitoring. Patient currently kept on home dose of Levemir 10 units at bedtime and insulin sliding scale 08/06/2021 Patient today she remains clinically well, no chest pain or headache or no other symptoms, no diarrhea or vomiting or abdominal pain. Patient was cleared by production underwriter for discharge with recommendation to check echocardiogram in 3-4 weeks and she was informed and agrees. Infectious disease team also cleared her for discharge on 7 days of Augmentin. However patient blood pressure was borderline during dialysis, even without blood pressure medication at post dialysis she develops hyperglycemia which glucose 400-500, because of this we kept the patient to be monitored for another 24 hours. We are going to monitor her glucose and blood pressure. Yesterday her Levemir increased from 10 units up to 15 units, today we will add NovoLog 2 units 3 times a day before meals, and we will keep the same blood pressure medication with a close monitoring. Objective - Vital Signs Vital signs: Vital Signs Temp 98.3 F 08/06/21 17:36 Pulse 87 08/06/21 17:36 Resp 17 08/06/21 17:36 BP 156/85 08/06/21 17:36 Pulse Ox 97 08/06/21 17:36 Intake & Output 08/05/21 08/06/21 08/06/21 18:59 06:59 18:59 Intake Total 240 460 300 Output Total 1999 1999 Balance -1760 460 -1700 Intake: Intake, IV Titration 100 Amount Piperacillin-Tazobactam 3 100 .375 gm In Sodium Chloride 0.9% 100 ml @ 25 mls/hr IVPB Q12HR [facility] Rx #:[id number] Oral 240 360 Hemodialysis 300 Output: Hemodialysis 1999 1999 Other: # Voids 0 1 # Bowel Movements 1 - Exam GENERAL: The patient is alert and oriented x3, not in any acute distress. Well developed, well nourished. HEENT: Pupils are round and equally reacting to light. EOMI. No scleral icterus. No conjunctival pallor. Normocephalic, atraumatic. No pharyngeal erythema. No thyromegaly. CARDIOVASCULAR: S1 and S2 present. No murmurs, rubs, or gallops. PULMONARY: Chest is clear to auscultation, no wheezing or crackles. ABDOMEN: Soft, nontender, nondistended, normoactive bowel sounds. No palpable organomegaly. MUSCULOSKELETAL: No joint swelling or deformity. EXTREMITIES: No cyanosis, clubbing, or pedal edema. NEUROLOGICAL: Gross neurological examination did not reveal any focal deficits. SKIN: No rashes. no petechiae. - Labs CBC & Chem 7: 08/05/21 08:31 08/05/21 08:31 Labs: Abnormal Lab Results - Last 24 Hours (Table) 08/05/21 08/05/21 08/06/21 Range/Units 08:31 20:17 02:14 POC Glucose (mg/dL) 421 H 232 H (75-99) mg/dL Histone Antibodies 1.2 H (<1.0) UNITS 08/06/21 08/06/21 08/06/21 Range/Units 07:08 09:35 11:47 POC Glucose (mg/dL) 287 H 248 H 123 H (75-99) mg/dL Histone Antibodies (<1.0) UNITS 08/06/21 Range/Units 17:19 POC Glucose (mg/dL) 433 H (75-99) mg/dL Histone Antibodies (<1.0) UNITS Microbiology - Last 24 Hours (Table) 08/02/21 12:27 Blood Culture - Preliminary Blood No Growth after 96 hours 08/02/21 12:27 Blood Culture - Preliminary Blood No Growth after 96 hours Assessment and Plan Assessment: Suspect intra-abdominal infection, with elevated liver enzymes and gastro enteritis. Improving Pericardial effusion , tamponade was ruled out Sepsis with fever, improving Elevated liver enzymes, improving End-stage renal disease on hemodialysis Hypertension with urgency on admission. Improving History of seizure disorder Insulin-dependent diabetes mellitus, with hyper glycemia and fluctuating glucose Diabetic neuropathy Diabetic retinopathy, patient is legally blind. Restless leg syndrome History of gastritis History of severe hypokalemia History of fluid retention of the abdomen and legs Plan: This is a pleasant 30 years old female who presents with pericardial effusion and possible tamponade and high fever. ESDR on hemodialysis cardiology and cardiothoracic surgery on the case for pericardial effusion, they recommended outpatient follow-up with echocardiogram in 3-4 weeks, patient informed and agreed Patient currently kept on Zosyn, infectious disease team on the case, patient was cleared to be discharged on Augmentin 7 days Employment Trainer on the case for dialysis Patient blood pressure was dropped today while on dialysis and her sugar was more than 400-500. Hold blood pressure and resume antihypertensive as it is expected to improve Monitor blood pressure closely and continue with antihypertensive medication. Resume hydralazine and clonidine Keep monitoring glucose. Levemir increased to 15 units and placed on the follow-up 10 units with meals Labs and medication were reviewed.. Continue same treatment. Continue with symptomatic treatment. Resume home medication. Monitor lytes and vitals. DVT and GI prophylaxis. Further recommendations as per clinical course of the patient pognosis is guarded
--- NOTE | 2021-08-06 23:13 | P.PN ---
Subjective Progress Note Date: 08/06/21 Principal diagnosis: Fever Patient is a 30 year old female with a past medical history significant for end-stage renal disease on hemodialysis through the left arm AV fistula, presented to the hospital acute nausea vomiting diarrhea and did have a fever. On today's evaluation that is 08/06/2021, the patient is afebrile, patient denies nausea or further vomiting, the patient denies any abdominal pain or diarrhea the patient denies chest pain or shortness of breath or cough and is currently breathing comfortably on room air Objective - Vital Signs Vital signs: Vital Signs Temp 97.7 F 08/06/21 11:14 Pulse 77 08/06/21 11:14 Resp 18 08/06/21 11:14 BP 93/50 08/06/21 11:14 Pulse Ox 99 08/06/21 11:14 Intake & Output 08/05/21 08/06/21 08/06/21 18:59 06:59 18:59 Intake Total 240 460 Output Total 1999 Balance -1760 460 Intake: Intake, IV Titration 100 Amount Piperacillin-Tazobactam 3 100 .375 gm In Sodium Chloride 0.9% 100 ml @ 25 mls/hr IVPB Q12HR [facility] Rx #:[id number] Oral 240 360 Output: Hemodialysis 1999 Other: # Voids 0 1 # Bowel Movements 1 - Exam GENERAL DESCRIPTION: Middle-age female lying in bed in no distress RESPIRATORY SYSTEM: Unlabored breathing , decreased breath sounds at bases HEART: S1 S2 regular rate and rhythm , ABDOMEN: Soft , no tenderness EXTREMITIES: No edema feet - Labs CBC & Chem 7: 08/05/21 08:31 08/05/21 08:31 Labs: Abnormal Lab Results - Last 24 Hours (Table) 08/05/21 08/05/21 08/05/21 Range/Units 08:31 17:01 17:03 POC Glucose (mg/dL) 527 H 514 H (75-99) mg/dL Procalcitonin 15.80 H (0.02-0.09) ng/mL 08/05/21 08/06/21 08/06/21 Range/Units 20:17 02:14 07:08 POC Glucose (mg/dL) 421 H 232 H 287 H (75-99) mg/dL Procalcitonin (0.02-0.09) ng/mL 08/06/21 08/06/21 Range/Units 09:35 11:47 POC Glucose (mg/dL) 248 H 123 H (75-99) mg/dL Procalcitonin (0.02-0.09) ng/mL Microbiology - Last 24 Hours (Table) 08/02/21 12:27 Blood Culture - Preliminary Blood No Growth after 72 hours 08/02/21 12:27 Blood Culture - Preliminary Blood No Growth after 72 hours Assessment and Plan (1) Fever Current Visit: Yes Status: Acute Code(s): R50.9 - FEVER, UNSPECIFIED SNOMED Code(s): 367183995 Plan: 1patient presented to hospital with acute vomiting diarrhea and did have a fever and this patient did have abnormal CT abdominal pelvis with evidence of possible pericardial effusion and tamponade phenomena for which cardiology has been consulted patient also have elevated liver enzymes however the patient have a normal white count with lymphopenia concerning for possible viral syndrome. 2initial viral testing including Covid influenza and hepatitis panel has been negative. 3 EBV IgG is positive IgM is negative and CMV serology negative 4patient did have elevated pro-calcitonin and the patient clinically improved with empiric Zosyn which will be continued while inpatient and to finish therapy with oral Augmentin 7 days on discharge, discussed with the admitting physician working on discharge Time with Patient: Less than 30
[2021-08-07] MEDS: METOCLOPRAMIDE 10 MG TAB PO SCH ×4 (01:31→17:38)
[2021-08-07 02:36] LABS: Glucose,Whole Blood 186 mg/dL (75-99)
[2021-08-07 07:37] LABS: Glucose,Whole Blood 149 mg/dL (75-99)
[2021-08-07] MEDS: cloNIDine HCL 0.1 MG TAB PO SCH ×2 (07:49→17:38)
[2021-08-07] MEDS: hydrALAZINE HCL 25 MG TAB PO SCH ×2 (07:49→17:38)
[2021-08-07] MEDS: carvediloL 12.5 MG TAB PO SCH (08:00)
[2021-08-07] MEDS: ASPIRIN 81 MG PO SCH (08:00)
[2021-08-07] MEDS: PANTOPRAZOLE 40 MG TABLET PO SCH ×2 (08:00→17:38)
[2021-08-07] MEDS: SEVELAMER 800 MG TAB PO SCH ×3 (08:00→17:38)
[2021-08-07] MEDS: minoxidiL 2.5 MG TAB PO SCH (08:01)
[2021-08-07] MEDS: ESCITALOPRAM 20 MG TAB PO SCH (08:01)
[2021-08-07] MEDS: HEPARIN SODIUM,PORCINE/PF 5,000 UNIT/0.5 ML SYRINGE SQ SCH (08:02)
[2021-08-07] MEDS: PIPERACILLIN-TAZOBACTAM 3.375 GM in SODIUM CHLORIDE 0.9% 100 ML IVPB SCH (08:02)
[2021-08-07] MEDS: INSULIN ASPART (NovoLOG) 100 UNIT/ML VIAL SQ SCH ×6 (08:12→17:39)
[2021-08-07] MEDS ORDERED: LIDOCAINE-PRILOCAINE 2.5-2.5% CREAM 5 GM TUBE TOPICAL STA (10:03)
[2021-08-07 11:54] LABS: Glucose,Whole Blood 194 mg/dL (75-99)
[2021-08-07] MEDS: diphenhydrAMINE ELIXIR 25 MG/10 ML CUP PO PRN (13:03)
--- NOTE | 2021-08-07 13:03 | P.PN ---
Subjective Patient is seen for follow-up for end-stage renal disease. She was admitted to the hospital with nausea vomiting and diarrhea. Patient was noted to have large pericardial effusion along with pleural effusion with significantly elevated blood pressure which responded very well to dialysis. No evidence of tamponade on echocardiogram Patient has had consecutive treatments No significant complaints today. No nausea or vomiting noted patient has been tolerating oral intake. Status post removal of 10.5 L thus far with daily dialysis. Patient wants to go home. She is scheduled for dialysis again today for about 2 hours with another UF of about 2 L. Objective - Vital Signs Vital signs: Vital Signs Temp 98.3 F 08/07/21 11:49 Pulse 79 08/07/21 11:49 Resp 16 08/07/21 11:49 BP 156/79 08/07/21 11:49 Pulse Ox 96 08/07/21 11:49 Intake & Output 08/06/21 08/07/21 08/07/21 18:59 06:59 18:59 Intake Total 300 580 Output Total 2000 Balance -1700 580 Intake: Intake, IV Titration 100 Amount Piperacillin-Tazobactam 3 100 .375 gm In Sodium Chloride 0.9% 100 ml @ 25 mls/hr IVPB Q12HR [facility] Rx #:[id number] Oral 480 Hemodialysis 300 Output: Hemodialysis 2000 Other: # Voids 1 - Exam Agent is awake comfortable. Alert and oriented 3. Examination of the heart S1 and S2 Examination lungs bilateral breath sounds are heard Abdomen is soft nontender Examination lower extremity shows no evidence of edema CURING PRESS OPERATOR exam grossly intact - Labs CBC & Chem 7: 08/05/21 08:31 08/05/21 08:31 Labs: Abnormal Lab Results - Last 24 Hours (Table) 08/05/21 08/06/21 08/06/21 Range/Units 08:31 17:19 21:02 POC Glucose (mg/dL) 433 H 505 H (75-99) mg/dL Histone Antibodies 1.2 H (<1.0) UNITS 08/07/21 08/07/21 08/07/21 Range/Units 02:35 07:36 11:51 POC Glucose (mg/dL) 186 H 149 H 194 H (75-99) mg/dL Histone Antibodies (<1.0) UNITS Microbiology - Last 24 Hours (Table) 08/02/21 12:27 Blood Culture - Preliminary Blood No Growth after 96 hours 08/02/21 12:27 Blood Culture - Preliminary Blood No Growth after 96 hours Assessment and Plan Assessment: 1. End-stage renal disease on hemodialysis on a Monday schedule 2. Volume overload 3. Large pericardial effusion with pleural effusion most likely component of ge neralized volume overload. Uremic pericarditis is a consideration. Patient is currently being dialyzed on a daily basis with aggressive ultrafiltration. We were not able to remove much fluid yesterday as her blood pressure was low. Check antihistone antibody for possibility of pericardial effusion related to hydralazine. 4. Nausea and vomiting along with diarrhea currently resolved 5. Hypertension partly volume sensitive currently improved. Plan: Hemodialysis today Patient can be discharged postdialysis. He Use EMLA cream on the arm
[2021-08-07 16:28] VITALS: BP 151/91; PULSE 78; RESP 18; TEMP 97.7
[2021-08-07 17:10] LABS: Glucose,Whole Blood 218 mg/dL (75-99)
--- NOTE | 2021-08-08 00:51 | P.DS ---
Providers Date of admission: 08/02/21 11:58 Attending physician: Williams Ann MD Consults: 08/02/21 12:11 Consult Physician Urgent Consulting Provider: Aurelia Poe Consult Reason/Comments: ESRD Do you want consulting provider notified?: Yes 08/02/21 14:54 Consult Physician Urgent Consulting Provider: Falguni Gracia Consult Reason/Comments: fever Do you want consulting provider notified?: Yes 08/02/21 17:00 Consult Physician Urgent Consulting Provider: Veto Samayoa Consult Reason/Comments: pericardial effusion , r/u temponade Do you want consulting provider notified?: Yes Primary care physician: Stated None Hospital Course: Diagnoses: Suspect intra-abdominal infection, with elevated liver enzymes and gastroenteritis. Improving with treatment antibiotic and patient became asymptomatic and liver enzymes improved Pericardial effusion , tamponade was ruled out. Patient remains asymptomatic and cleared by teller for discharge to repeat echocardiogram in 3-4 weeks and patient agrees Sepsis with fever, present on admission. improving Elevated liver enzymes, improving End-stage renal disease on hemodialysis Hypertension with urgency on admission. Improving. Patient has labile blood pressure going up and down which is a chronic problem as per patient History of seizure disorder Insulin-dependent diabetes mellitus, with hyper glycemia and fluctuating glucose. Patient glucose stabilized upon discharge Diabetic neuropathy Diabetic retinopathy, patient is legally blind. Restless leg syndrome History of gastritis History of severe hypokalemia History of fluid retention of the abdomen and legs Hospital course: This is a pleasant 30 his CVA/TIA, Dialysis, Eye Disorder, Hypertension, Renal Disease, Seizure Disorder, ESRD with hemodialysis M/W/F, IDDM type 1, DKA, neuropathy bilateral legs/feet, diabetic retinopathy/legally blind, RLS, gastritis, severe hypokalemia, fluid retention in abdomin/legs. Patient presents because of vomiting frequently more than 1 hour, with diarrhea every 30 minutes as she describes. No blood in the vomiting or diarrhea which is watery. No abdominal pain and abdomen soft, also she has evidence of pericardial effusion and fever of 103. Proctoscopycalcitonin was also elevated significantly 16.9. Sepsis is suspected and patient was treated with Zosyn, infectious disease consult obtained. Patient showed interval improvement and fever subsided and patient symptoms of diarrhea and vomiting stopped Serena patient tolerates diet well, no abdominal pain, liver enzymes improved. No more fever. Patient was cleared for discharge by infectious disease team on Augmentin for 7 days. Also teller and cardiothoracic surgeons evaluated the patient, no evidence of tamponade. Patient treated for discharge by both services with teller recommendation to repeat echo in 3-4 weeks and patient agrees as well. Patient blood pressure was labile, doing dialysis came down with systolic 90s and 100, however after dialysis goes to 150s or higher, patient states that's usual for her and she is used to it monitor her blood pressure at home and adjust blood pressure medication she takes. However blood pressure stabilized, her blood pressure medication were restarted. Also glucose controlled. Problems and management plan were discussed with the patient and he verbalized understanding and acceptance Patient was found stable and can be discharged home however he needs follow-up as an outpatient. Patient was instructed to follow up with PCP within one week and patient agrees Patient was instructed to follow up with Dr. Poe in one week and Dr. Gracia from ID in 1 week and she agrees. Also instructed to follow up with teller Dr. Downs in 3 weeks and she agrees to call and make appointment Physical exam Gen: patient is a AAOx3, no distress CVS: S1-S2, RRR, no murmur Lungs: B/L CTA, no wheezing Abdomen: soft, no distention, no tenderness, positive bowel sounds Extremity: no leg edema or induration Time spent more than 35 Patient Condition at Discharge: Poor Plan - Discharge Summary Discharge Rx Participant: No New Discharge Prescriptions: New cloNIDine HCL [Catapres] 0.3 mg PO TID tab Insulin Detemir (Levemir) [Levemir] 15 unit SQ HS #10 ml Amoxicillin/Potassium Clav [Augmentin 500-125 Tablet] 1 tab PO Q12HR 7 Days #14 tab INSULIN ASPART (NovoLOG) [NovoLOG (formulary)] 2 unit SQ AC-TID 30 Days #10 ml Continue Aspirin EC [Ecotrin Low Dose] 81 mg PO DAILY Escitalopram [Lexapro] 20 mg PO DAILY rOPINIRole HCL [Requip] 0.5 mg PO HS Sevelamer [Renvela] 800 mg PO TID-W/MEALS 30 Days #90 tab Glucagon Emergency Kit 1 mg IM ONCE PRN #1 kit PRN Reason: Hypoglycemia Furosemide [Lasix] 80 mg PO BID #60 tab minoxidiL [Loniten] 2.5 mg PO BID #60 tab Isosorbide Mononitrate ER [Imdur] 30 mg PO HS Ergocalciferol (Vitamin D2) [Drisdol (50,000 Iu)] 1,250 mcg PO COPELAND Carvedilol [Coreg] 25 mg PO BID Acetaminophen Tab [Tylenol] 650 mg PO Q6HR PRN #30 tab PRN Reason: Fever And/ Or Pain Pantoprazole Sodium [Protonix] 40 mg PO BID 30 Days #60 tab Melatonin 5 - 10 mg PO HS PRN PRN Reason: Insomnia Insulin Lispro [humaLOG Kwikpen] See Protocol SQ AC-TID Discontinued Insulin Glargine [Lantus Vial] 10 unit SQ HS amLODIPine [Norvasc] 10 mg PO DAILY 30 Days #30 tab hydrALAZINE HCL [Apresoline] 100 mg PO QID #120 tab cloNIDine HCL [Catapres] 0.3 mg PO TID 30 Days #90 tablet Discharge Medication List Aspirin EC [Ecotrin Low Dose] 81 mg PO DAILY 04/03/21 [History] Carvedilol [Coreg] 25 mg PO BID 04/03/21 [History] Ergocalciferol (Vitamin D2) [Drisdol (50,000 Iu)] 1,250 mcg PO COPELAND 04/03/21 [History] Isosorbide Mononitrate ER [Imdur] 30 mg PO HS 04/03/21 [History] Acetaminophen Tab [Tylenol] 650 mg PO Q6HR PRN #30 tab 04/09/21 [Rx] Escitalopram [Lexapro] 20 mg PO DAILY 04/17/21 [History] rOPINIRole HCL [Requip] 0.5 mg PO HS 04/17/21 [History] Sevelamer [Renvela] 800 mg PO TID-W/MEALS 30 Days #90 tab 05/31/21 [Rx] Pantoprazole Sodium [Protonix] 40 mg PO BID 30 Days #60 tab 06/04/21 [Rx] Glucagon Emergency Kit 1 mg IM ONCE PRN #1 kit 06/15/21 [Rx] Melatonin 5 - 10 mg PO HS PRN 06/29/21 [History] Furosemide [Lasix] 80 mg PO BID #60 tab 07/03/21 [Rx] minoxidiL [Loniten] 2.5 mg PO BID #60 tab 07/03/21 [Rx] Insulin Lispro [humaLOG Kwikpen] See Protocol SQ AC-TID 08/02/21 [History] Amoxicillin/Potassium Clav [Augmentin 500-125 Tablet] 1 tab PO Q12HR 7 Days #14 tab 08/06/21 [Rx] INSULIN ASPART (NovoLOG) [NovoLOG (formulary)] 2 unit SQ AC-TID 30 Days #10 ml 08/07/21 [Rx] Insulin Detemir (Levemir) [Levemir] 15 unit SQ HS #10 ml 08/07/21 [Rx] cloNIDine HCL [Catapres] 0.3 mg PO TID tab 08/07/21 [Rx] Follow up Appointment(s)/Referral(s): Aurelia Poe MD [STAFF PHYSICIAN] - 1 Week Judah Downs MD [STAFF PHYSICIAN] - 3 Weeks (teller , you will need to repeat your echocardiogram) Veto Samayoa MD [STAFF PHYSICIAN] - 3 Weeks (cardiothoracic surgeon) None,Stated [Primary Care Provider] - 1-2 days Falguni Gracia MD [STAFF PHYSICIAN] - 1 Week (infectious disease doctor ) Patient Instructions/Handouts: Amoxicillin/Clavulanate Potassium (By mouth), Insulin Detemir (By injection), End Stage Kidney Disease (DC) Activity/Diet/Wound Care/Special Instructions: renal diet activity is restricted till you see your doctor we recommend to check your glucose 4 times per day , before each meal and at bed side, and keep the results in a log book and bring it to your doctor on your appointment date if your glucose is less than 70 or more than 400 then call 911 and come to the hospital please monitor your BP (blood pressure) at home closely and adjust medication as you did before, otherwise if systolic BP (high upper number) is more than 180 or less than 90 or if symptomatic like dizziness or chest pain of dyspnea then call 911 and come to emergency room Discharge Disposition: HOME SELF-CARE
== END 2021-08-07 19:07 | disposition home or self-care (01) | DRG 871 ==
LOC: EC 07:28 → 4SSUR 11:58 → 3SCARD 17:00 → 5NMEDONC 08-05 13:27
PROVIDERS: ADMIT Internal Medicine; ATTEND Internal Medicine
PROC: 5A1D70Z Performance of Urinary Filtration, Intermittent, Less than 6 Hours Per Day (ICD-10-PCS; principal; 2021-08-02)
DX: A41.9 Sepsis, unspecified organism (principal); N18.6 End stage renal disease; K65.9 Peritonitis, unspecified; I13.11 Hypertensive heart and chronic kidney disease without heart failure, with stage 5 chronic kidney disease, or end stage renal disease; I31.3 Pericardial effusion (noninflammatory); J90 Pleural effusion, not elsewhere classified; B34.9 Viral infection, unspecified; E10.22 Type 1 diabetes mellitus with diabetic chronic kidney disease; E10.319 Type 1 diabetes mellitus with unspecified diabetic retinopathy without macular edema; E10.43 Type 1 diabetes mellitus with diabetic autonomic (poly)neuropathy; E87.6 Hypokalemia; E87.70 Fluid overload, unspecified; F32.A Depression, unspecified; F41.9 Anxiety disorder, unspecified; G25.81 Restless legs syndrome; G40.909 Epilepsy, unspecified, not intractable, without status epilepticus; H54.8 Legal blindness, as defined in USA; I16.0 Hypertensive urgency; K31.84 Gastroparesis; E10.42 Type 1 diabetes mellitus with diabetic polyneuropathy; Z79.4 Long term (current) use of insulin; E83.9 Disorder of mineral metabolism, unspecified; Z99.2 Dependence on renal dialysis; R74.01 Elevation of levels of liver transaminase levels; T46.5X5A Adverse effect of other antihypertensive drugs, initial encounter; K52.9 Noninfective gastroenteritis and colitis, unspecified; Z86.16 Personal history of COVID-19; Z86.73 Personal history of transient ischemic attack (TIA), and cerebral infarction without residual deficits; Z79.82 Long term (current) use of aspirin; Z79.899 Other long term (current) drug therapy; Z80.8 Family history of malignant neoplasm of other organs or systems; Z82.0 Family history of epilepsy and other diseases of the nervous system; Z82.49 Family history of ischemic heart disease and other diseases of the circulatory system; Z81.8 Family history of other mental and behavioral disorders; Z90.49 Acquired absence of other specified parts of digestive tract; Z98.890 Other specified postprocedural states; Z87.01 Personal history of pneumonia (recurrent); Z88.8 Allergy status to other drugs, medicaments and biological substances; Z91.013 Allergy to seafood; Z83.49 Family history of other endocrine, nutritional and metabolic diseases
CPT/HCPCS: 71046; 74176; 76705; 80048; 80053; 80074; 80076; 83516; 83605; 83690; 83735; 84100; 84145; 84484; 84703; 85025; 86308; 86644; 86645; 86663; 86664; 86665; 87040; 87502; 87635; 90935; 93005; 93308; 96374; 96375; 96376; 99291

== ENCOUNTER 2021-08-15 14:42 | Inpatient (IN) | payer MEDICARE, OTHER ==
--- NOTE | 2021-08-15 15:31 | XR ---
EXAMINATION TYPE: XR chest 2V DATE OF EXAM: 08/15/2021 COMPARISON: CXR 13 days ago. HISTORY: SOB. TECHNIQUE: Frontal and lateral views of the chest are obtained. FINDINGS: Persisting cardiomegaly. New bilateral multifocal increased opacities. No pleural effusion or pneumothorax seen bilaterally. The osseous structures are intact. IMPRESSION: Cardiomegaly with new bilateral multifocal opacities could reflect edema and/or infiltra julia. Correlate for CHF exacerbation versus atypical infection such as Covid-19.
[2021-08-15] MEDS ORDERED: ACETAMINOPHEN TAB 325 MG TAB PO STA (16:05)
--- NOTE | 2021-08-15 16:05 | ED ---
Fever HPI - General Chief Complaint: Fever Stated Complaint: Fever Time Seen by Provider: 08/15/21 15:46 Source: patient, RN notes reviewed Mode of arrival: ambulatory Limitations: no limitations - History of Present Illness Initial Comments: This is a 30-year-old female well known to this facility who presents to the emergency department with a fever. Patient had hemodialysis yesterday and was noted to have fever at that time. She was given Tylenol, and her fever resolved. After the fever resolved, she was able to proceed with dialysis. She was told that if she continues to have the fever, she cannot receive dialysis tomorrow. She was discharged from this facility on 08/07 for suspected intra- abdominal infection. She was started on Augmentin after discharge, which she finished two days ago. After she finished the Augmentin, her fever started. States that her abdomen feels like it is full of fluid. Denies any chest pain or SOB, however while I was evaluating her, she requested to be put on oxygen. Patient later complaining of pain in her ribs with inhalation and nausea. States that both of these symptoms have been present for the last few days as well, but have continued to progress. MD Complaint: fever Onset/Timin -: days(s) Context: recent antibiotic use - Related Data Home Medications Medication Instructions Recorded Confirmed Aspirin EC [Ecotrin Low Dose] 81 mg PO DAILY 04/03/21 08/02/21 Carvedilol [Coreg] 25 mg PO BID 04/03/21 08/02/21 Ergocalciferol (Vitamin D2) 1,250 mcg PO COPELAND 04/03/21 08/02/21 [Drisdol (50,000 Iu)] Isosorbide Mononitrate ER [Imdur] 30 mg PO HS 04/03/21 08/02/21 Escitalopram [Lexapro] 20 mg PO DAILY 04/17/21 08/02/21 rOPINIRole HCL [Requip] 0.5 mg PO HS 04/17/21 08/02/21 Melatonin 5 - 10 mg PO HS PRN 06/29/21 08/02/21 Insulin Lispro [humaLOG Kwikpen] See Protocol SQ AC-TID 08/02/21 08/02/21 Previous Rx's Medication Instructions Recorded Acetaminophen Tab [Tylenol] 650 mg PO Q6HR PRN #30 tab 04/09/21 Sevelamer [Renvela] 800 mg PO TID-W/MEALS 30 Days #90 05/31/21 tab Pantoprazole Sodium [Protonix] 40 mg PO BID 30 Days #60 tab 06/04/21 Glucagon Emergency Kit 1 mg IM ONCE PRN #1 kit 06/15/21 Furosemide [Lasix] 80 mg PO BID #60 tab 07/03/21 minoxidiL [Loniten] 2.5 mg PO BID #60 tab 07/03/21 Amoxicillin/Potassium Clav 1 tab PO Q12HR 7 Days #14 tab 08/06/21 [Augmentin 500-125 Tablet] INSULIN ASPART (NovoLOG) [NovoLOG 2 unit SQ AC-TID 30 Days #10 ml 08/07/21 (formulary)] Insulin Detemir (Levemir) [Levemir] 15 unit SQ HS #10 ml 08/07/21 cloNIDine HCL [Catapres] 0.3 mg PO TID tab 08/07/21 Allergies Allergy/AdvReac Type Severity Reaction Status Date / Time Fish Containing Products Allergy Rash/Hives Verified 08/15/21 18:30 [Fish] iodine Allergy Anaphylaxis Verified 08/15/21 18:30 Review of Systems ROS Statement: Those systems with pertinent positive or pertinent negative responses have been documented in the HPI. ROS Other: All systems not noted in ROS Statement are negative. Constitutional: Reports: fever. Denies: chills ENT: Denies: ear pain, throat pain Respiratory: Denies: cough, dyspnea Cardiovascular: Denies: chest pain, palpitations Gastrointestinal: Reports: nausea. Denies: abdominal pain, vomiting, diarrhea, constipation Musculoskeletal: Denies: back pain Skin: Denies: rash Past Medical History Past Medical History: CVA/TIA, Diabetes Mellitus, Dialysis, Eye Disorder, Hypertension, Renal Disease Additional Past Medical History / Comment(s): ESRD with hemodialysis M/W/F, IDDM type 1, DKA, neuropathy bilateral legs/feet, diabetic retinopathy/legally blind, RLS, gastritis, severe hypokalemia, fluid retention in abdomin/legs. History of Any Multi-Drug Resistant Organisms: None Reported Past Surgical History: Appendectomy, Section, Cholecystectomy Additional Past Surgical History / Comment(s): fistula left arm Past Anesthesia/Blood Transfusion Reactions: No Reported Reaction Past Psychological History: Anxiety, Depression Smoking Status: Never smoker Past Alcohol Use History: None Reported Past Drug Use History: None Reported - Past Family History Mother Family Medical History: Cancer, Hypertension Additional Family Medical History / Comment(s): Thyroid cancer, bipolar Father Family Medical History: Seizure Disorder Additional Family Medical History / Comment(s): Epilepsy General Exam Limitations: no limitations General appearance: alert, in distress Head exam: Present: atraumatic, normocephalic, normal inspection ENT exam: Present: normal exam, mucous membranes moist, normal external ear exam Neck exam: Present: normal inspection. Absent: tenderness, meningismus, lymphadenopathy Respiratory exam: Present: normal lung sounds bilaterally. Absent: respiratory distress, wheezes, rales, rhonchi, stridor Cardiovascular Exam: Present: regular rate, normal rhythm, normal heart sounds. Absent: systolic murmur, diastolic murmur, rubs, gallop, clicks GI/Abdominal exam: Present: soft, normal bowel sounds. Absent: distended, tenderness, guarding, rebound Extremities exam: Present: normal inspection, full ROM, normal capillary refill. Absent: tenderness, pedal edema, joint swelling, calf tenderness Neurological exam: Present: alert, oriented X3, CN II-XII intact Psychiatric exam: Present: normal affect, normal mood Skin exam: Present: warm, dry, intact, normal color. Absent: rash Course Vital Signs 08/15/21 08/15/21 14:59 17:56 Temperature 100.4 F H 100.6 F H Pulse Rate 83 84 Respiratory 22 20 Rate Blood Pressure 188/82 O2 Sat by Pulse 98 98 Oximetry Medical Decision Making - Medical Decision Making This is a 30-year-old female with multiple comorbidities [facility]. Lab work not suggestive of an infection source at this time. BNP is noted to be significantly elevated. Chest x-ray was consistent with atypical infection or CHF exacerbation. COVID and influenza testing negative. Patient was given 650 mg of Tylenol for a temperature of 100.4. Upon reevaluation, her temperature was 100.6. Ordered a CT of the abdomen and pelvis for further evaluation of patient's symptoms, and an attempt to look for a source of infection. Case discussed with my attending, Dr. De Jesus, who spoke with Dr. Pena. Dr. Pena recommended admission for the patient, with blood cultures, empiric antibiotics, and nephrology consult. Patient started on vancomycin and Cefepime. - Lab Data Result diagrams: 08/15/21 16:02 08/15/21 16:02 Lab Results 08/15/21 08/15/21 08/15/21 Range/Units 16:02 16:02 16:02 WBC 10.4 (3.8-10.6) k/uL RBC 2.94 L (3.80-5.40) m/uL Hgb 9.0 L D (11.4-16.0) gm/dL Hct 26.3 L (34.0-46.0) % MCV 89.5 D (80.0-100.0) fL MCH 30.7 (25.0-35.0) pg MCHC 34.3 (31.0-37.0) g/dL RDW 13.9 (11.5-15.5) % Plt Count 223 (150-450) k/uL MPV 10.2 Neutrophils % 91 % Lymphocytes % 5 % Monocytes % 3 % Eosinophils % 0 % Basophils % 0 % Neutrophils # 9.4 H (1.3-7.7) k/uL Lymphocytes # 0.5 L (1.0-4.8) k/uL Monocytes # 0.4 (0-1.0) k/uL Eosinophils # 0.0 (0-0.7) k/uL Basophils # 0.0 (0-0.2) k/uL Sodium 131 L (137-145) mmol/L Potassium 3.8 (3.5-5.1) mmol/L Chloride 89 L (98-107) mmol/L Carbon Dioxide 26 (22-30) mmol/L Anion Gap 16 mmol/L BUN 51 H (7-17) mg/dL Creatinine 6.53 H (0.52-1.04) mg/dL Est GFR (CKD-EPI)AfAm 9 (>60 ml/min/1.73 sqM) Est GFR (CKD-EPI)NonAf 8 (>60 ml/min/1.73 sqM) Glucose 249 H (74-99) mg/dL Plasma Lactic Acid Dio 1.5 (0.7-2.0) mmol/L Calcium 9.0 (8.4-10.2) mg/dL Total Bilirubin 1.2 (0.2-1.3) mg/dL AST 35 (14-36) U/L ALT 34 (4-34) U/L Alkaline Phosphatase 133 H (38-126) U/L NT-Pro-B Natriuret Pep pg/mL Total Protein 6.9 (6.3-8.2) g/dL Albumin 4.2 (3.5-5.0) g/dL Coronavirus (PCR) (Not Detectd) Influenza Type A RNA (Not Detectd) Influenza Type B (PCR) (Not Detectd) 08/15/21 08/15/21 08/15/21 Range/Units 16:02 16:06 16:17 WBC (3.8-10.6) k/uL RBC (3.80-5.40) m/uL Hgb (11.4-16.0) gm/dL Hct (34.0-46.0) % MCV (80.0-100.0) fL MCH (25.0-35.0) pg MCHC (31.0-37.0) g/dL RDW (11.5-15.5) % Plt Count (150-450) k/uL MPV Neutrophils % % Lymphocytes % % Monocytes % % Eosinophils % % Basophils % % Neutrophils # (1.3-7.7) k/uL Lymphocytes # (1.0-4.8) k/uL Monocytes # (0-1.0) k/uL Eosinophils # (0-0.7) k/uL Basophils # (0-0.2) k/uL Sodium (137-145) mmol/L Potassium (3.5-5.1) mmol/L Chloride (98-107) mmol/L Carbon Dioxide (22-30) mmol/L Anion Gap mmol/L BUN (7-17) mg/dL Creatinine (0.52-1.04) mg/dL Est GFR (CKD-EPI)AfAm (>60 ml/min/1.73 sqM) Est GFR (CKD-EPI)NonAf (>60 ml/min/1.73 sqM) Glucose (74-99) mg/dL Plasma Lactic Acid Dio (0.7-2.0) mmol/L Calcium (8.4-10.2) mg/dL Total Bilirubin (0.2-1.3) mg/dL AST (14-36) U/L ALT (4-34) U/L Alkaline Phosphatase (38-126) U/L NT-Pro-B Natriuret Pep 32172 pg/mL Total Protein (6.3-8.2) g/dL Albumin (3.5-5.0) g/dL Coronavirus (PCR) Not Detected (Not Detectd) Influenza Type A RNA Not Detected (Not Detectd) Influenza Type B (PCR) Not Detected (Not Detectd) Disposition Clinical Impression: Infection, undetermined etiology Disposition: ADMITTED IP TO THIS HOSP Referrals: None,Stated [Primary Care Provider] - 1-2 days
[2021-08-15 16:17] LABS: Basophils % (A) 0 %; Eosinophils % (A) 0 %; HCT 26.3 % (34.0-46.0); Lymphocytes # (A) 0.5 k/uL (1.0-4.8); Lymphocytes % (A) 5 %; MCH 30.7 pg (25.0-35.0); MCHC 34.3 g/dL (31.0-37.0); Mean Platelet Volume 10.2; Monocytes # (A) 0.4 k/uL (0-1.0); Monocytes % (A) 3 %; Neutrophils # (A) 9.4 k/uL (1.3-7.7); Neutrophils % (A) 91 %; Platelet Count 223 k/uL (150-450); RBC 2.94 m/uL (3.80-5.40); RDW 13.9 % (11.5-15.5); WBC 10.4 k/uL (3.8-10.6)
[2021-08-15 16:26] LABS: Albumin 4.2 g/dL (3.5-5.0); Potassium 3.8 mmol/L (3.5-5.1); Total Bilirubin 1.2 mg/dL (0.2-1.3); Total Protein 6.9 g/dL (6.3-8.2)
[2021-08-15 16:35] LABS: MCV 89.5 fL (80.0-100.0)
[2021-08-15] MEDS ORDERED: VANCOMYCIN 750 MG in SODIUM CHLORIDE 0.9% 250 ML IVPB STA ×3 (18:07→18:33)
[2021-08-15] MEDS ORDERED: CEFEPIME 1 GM in SODIUM CHLORIDE 0.9% 50 ML IVPB STA (18:09)
[2021-08-15] MEDS ORDERED: NALOXONE 0.4 MG/ML 1 ML VIAL IV PRN (18:13)
[2021-08-15] MEDS ORDERED: ONDANSETRON 4 MG/2 ML VIAL IVP PRN (18:13)
[2021-08-15] MEDS ORDERED: VANCOMYCIN IV PER PHARMACY 1 EACH MISC MISCELLANE PRN (18:34)
--- NOTE | 2021-08-15 18:52 | CT ---
EXAMINATION TYPE: CT abdomen pelvis wo con CT DLP: 368.2 mGycm, Automated exposure control for dose reduction was used. DATE OF EXAM: 08/15/2021 6:30 PM COMPARISON: CT abdomen pelvis most recent from 08/02/2021. CLINICAL INDICATION:Female, 30 years old with history of Abdominal pain, non localized; Abdominal dave n, fever and shortness of breath. TECHNIQUE: Standard CT of the abdomen and pelvis without IV or oral contrast. Lack of IV or oral co ntrast limits evaluation of solid and hollow organ viscera. Coronal and sagittal reformats were perfo rmed. FINDINGS: LOWER CHEST: Small right pleural effusion, increased from prior. New trace left pleural effusion. The re is a small to moderate pericardial effusion, similar to prior. ABDOMEN LIVER: Unremarkable GALLBLADDER AND BILE DUCTS: The gallbladder is surgically absent. PANCREAS: Unremarkable. SPLEEN: Small splenule is present. ADRENAL GLANDS: Unremarkable. KIDNEYS AND URETERS: No evidence of hydronephrosis or renal calculus. The ureters are unremarkable. PELVIS BLADDER: Circumferential bladder wall thickening measuring up to 6 mm which may be partially due to u nder distention. REPRODUCTIVE: Unremarkable. ABDOMEN & PELVIS STOMACH AND BOWEL: No evidence of bowel obstruction. PERITONEUM: No evidence of pneumoperitoneum. Small amount of free fluid within the abdomen which may be physiologic. The mesentery is Tiara similar to prior on 08/02/2021. VASCULATURE: No evidence of aortic aneurysm. MUSCULOSKELETAL: No acute osseous abnormalities. Mild atherosclerosis of the arterial vasculature. LYMPH NODES: No gross evidence for lymphadenopathy. SOFT TISSUE/ABDOMINAL WALL: Mild anasarca of the soft tissues. IMPRESSION: 1. Worsening groundglass opacities within the lung base. Correlate for pneumonia. 2. Increasing right pleural effusion and now with trace left pleural effusion. 3. Circumferential bladder wall thickening correlate with urinalysis for cystitis. 4. Similar pericardial effusion [id number]. 5. Persistent nonspecific tiara mesentery. Exam limited given lack of IV contrast.
[2021-08-15] MEDS: METOCLOPRAMIDE 5 MG/ML 2 ML VIAL IVP PRN (18:59)
[2021-08-15] MEDS: HYDROmorphone 0.5 MG/0.5 ML SYRINGE IVP PRN (18:59)
[2021-08-15 21:10] LABS: Glucose,Whole Blood 343 mg/dL (75-99)
[2021-08-15] MEDS ORDERED: INSULIN DETEMIR (LEVEMIR) 100 UNIT/ML SYR SQ SCH (23:00)
[2021-08-15] MEDS: ERGOCALCIFEROL 1,250 MCG (50,000 IU) CAPSULE PO SCH (23:34)
[2021-08-15] MEDS: carvediloL 12.5 MG TAB PO SCH (23:35)
[2021-08-15] MEDS: cloNIDine HCL 0.1 MG TAB PO SCH (23:35)
[2021-08-15] MEDS: INSULIN ASPART (NovoLOG) 100 UNIT/ML VIAL SQ SCH (23:35)
[2021-08-15] MEDS: MELATONIN 5 MG TABLET PO PRN (23:44)
[2021-08-16 02:24] LABS: Glucose,Whole Blood 272 mg/dL (75-99)
[2021-08-16] MEDS ORDERED: DEXTROSE 50% SYRINGE 50 ML IVP ONE (07:16)
[2021-08-16 07:22] LABS: Glucose,Whole Blood <20 mg/dL (75-99)
[2021-08-16 07:22] LABS: Glucose,Whole Blood <20 mg/dL (75-99)
[2021-08-16] MEDS: cloNIDine HCL 0.1 MG TAB PO SCH ×3 (07:31→21:16)
[2021-08-16] MEDS: minoxidiL 2.5 MG TAB PO SCH ×2 (07:32→21:11)
[2021-08-16 07:37] LABS: Glucose,Whole Blood 117 mg/dL (75-99)
[2021-08-16] MEDS: carvediloL 12.5 MG TAB PO SCH ×2 (07:39→16:54)
[2021-08-16] MEDS: HYDROcodone/APAP 5-325MG 1 EACH TAB PO PRN ×2 (07:39→16:10)
[2021-08-16 07:41] LABS: Glucose,Whole Blood 88 mg/dL (75-99)
[2021-08-16 07:58] LABS: Glucose,Whole Blood 78 mg/dL (75-99)
[2021-08-16] MEDS: INSULIN ASPART (NovoLOG) 100 UNIT/ML VIAL SQ SCH ×4 (08:15→21:11)
[2021-08-16 08:17] LABS: Glucose,Whole Blood 93 mg/dL (75-99)
[2021-08-16] MEDS: SEVELAMER 800 MG TAB PO SCH ×3 (09:02→16:54)
[2021-08-16] MEDS: ESCITALOPRAM 20 MG TAB PO SCH (09:02)
[2021-08-16] MEDS: PANTOPRAZOLE 40 MG TABLET PO SCH ×2 (09:02→21:13)
[2021-08-16] MEDS: ASPIRIN 81 MG PO SCH (09:02)
--- NOTE | 2021-08-16 11:28 | P.NPCON ---
History of Present Illness - Reason for Consult end stage renal disease - History of Present Illness Patient is a 30-year-old female with end-stage renal disease on hemodialysis on a Monday schedule. Patient has had multiple admissions for fluid overload. She was admitted this time with history of fever which had been going on for about 4-5 days prior to admission. Patient has been coming to her dialysis treatments regularly. She missed Monday but made up for her treatment on Monday and has been having about 3 L of ultrafiltration however patient did put on a lot of fluid weight in between treatments. She has been having cough No complaints of abdominal pain nausea vomiting or diarrhea During her last hospitalization patient was noted to have a large pericardial effusion and significant pleural effusions. There was no evidence of cardiac tamponade. Patient was aggressively dialyzed and had about 12 L of ultrafiltration during her 1 week stay. Review of Systems As per HPI Past Medical History Past Medical History: CVA/TIA, Diabetes Mellitus, Dialysis, Eye Disorder, Hypertension, Renal Disease Additional Past Medical History / Comment(s): ESRD with hemodialysis M/W/F, IDDM type 1, DKA, neuropathy bilateral legs/feet, diabetic retinopathy/legally blind, RLS, gastritis, severe hypokalemia, fluid retention in abdomin/legs. History of Any Multi-Drug Resistant Organisms: None Reported Past Surgical History: Appendectomy, Section, Cholecystectomy Additional Past Surgical History / Comment(s): fistula left arm Past Anesthesia/Blood Transfusion Reactions: No Reported Reaction Past Psychological History: Anxiety, Depression Smoking Status: Never smoker Past Alcohol Use History: None Reported Past Drug Use History: None Reported - Past Family History Mother Family Medical History: Cancer, Hypertension Additional Family Medical History / Comment(s): Thyroid cancer, bipolar Father Family Medical History: Seizure Disorder Additional Family Medical History / Comment(s): Epilepsy Medications and Allergies Home Medications Medication Instructions Recorded Confirmed Type Aspirin EC [Ecotrin Low Dose] 81 mg PO DAILY 04/03/21 08/15/21 History Carvedilol [Coreg] 25 mg PO BID 04/03/21 08/15/21 History Ergocalciferol (Vitamin D2) 1,250 mcg PO COPELAND 04/03/21 08/15/21 History [Drisdol (50,000 Iu)] Isosorbide Mononitrate ER [Imdur] 30 mg PO HS 04/03/21 08/15/21 History Acetaminophen Tab [Tylenol] 650 mg PO Q6HR PRN #30 tab 04/09/21 08/15/21 Rx Escitalopram [Lexapro] 20 mg PO DAILY 04/17/21 08/15/21 History rOPINIRole HCL [Requip] 0.5 mg PO HS 04/17/21 08/15/21 History Sevelamer [Renvela] 800 mg PO TID-W/MEALS 30 Days #90 05/31/21 08/15/21 Rx tab Pantoprazole Sodium [Protonix] 40 mg PO BID 30 Days #60 tab 06/04/21 08/15/21 Rx Glucagon Emergency Kit 1 mg IM ONCE PRN #1 kit 06/15/21 08/15/21 Rx Melatonin 5 - 10 mg PO HS PRN 06/29/21 08/15/21 History Furosemide [Lasix] 80 mg PO BID #60 tab 07/03/21 08/15/21 Rx minoxidiL [Loniten] 2.5 mg PO BID #60 tab 07/03/21 08/15/21 Rx Insulin Lispro [humaLOG Kwikpen] See Protocol SQ AC-TID 08/02/21 08/15/21 History Amoxicillin/Potassium Clav 1 tab PO Q12HR 7 Days #14 tab 08/06/21 08/15/21 Rx [Augmentin 500-125 Tablet] INSULIN ASPART (NovoLOG) [NovoLOG 2 unit SQ AC-TID 30 Days #10 ml 08/07/21 08/15/21 Rx (formulary)] Insulin Detemir (Levemir) [Levemir] 15 unit SQ HS #10 ml 08/07/21 08/15/21 Rx cloNIDine HCL [Catapres] 0.3 mg PO TID tab 08/07/21 08/15/21 Rx Allergies Allergy/AdvReac Type Severity Reaction Status Date / Time Fish Containing Products Allergy Rash/Hives Verified 08/15/21 18:30 [Fish] iodine Allergy Anaphylaxis Verified 08/15/21 18:30 Physical Exam Vitals: Vital Signs Temp Pulse Pulse Resp BP BP Pulse Ox 08/16/21 10:14 18 08/16/21 08:28 62 16 163/79 99 08/16/21 08:15 63 200/90 08/16/21 08:10 63 14 218/98 100 03/21/22 07:55 64 18 237/117 100 08/16/21 07:37 64 16 216/96 98 08/16/21 02:08 97.9 F 76 18 114/44 94 L 08/15/21 23:47 98.7 F 86 17 157/74 98 08/15/21 20:00 98.9 F 76 18 08/15/21 18:48 98.7 F 70 17 145/77 08/15/21 17:56 100.6 F H 84 20 98 08/15/21 14:59 100.4 F H 83 22 188/82 98 Intake and Output 08/15/21 08/16/21 08/16/21 22:59 06:59 14:59 Other: Weight 47.627 kg Patient is comfortable awake not in any acute distress Examination of the heart S1 and S2 Exertion lungs bilateral breath sounds are heard Abdomen is soft nontender Examination lower extremity shows trace edema bilaterally FUSE SPOOLER exam grossly intact Results 1 - Lab Results Most recent lab results Calcium 9.0 mg/dL (8.4-10.2) 08/15/21 16:02 08/15/21 16:02 08/16/21 07:23 Assessment and Plan Assessment: 1. End-stage renal disease on hemodialysis on a Monday schedule 2. Fluid overload 3. Fever rule out pneumonia 4. Recent hospitalization for fluid overload with large pericardial effusion status post aggressive ultrafiltration of about 12 L during her stay 5. Hypertension partly volume sensitive improves with aggressive ultrafiltration. Continue current medications Plan: Hemodialysis today and then again in a.m. Repeat chest x-ray after dialysis tomorrow Empiric antibiotics Continue phosphate binders
[2021-08-16 11:33] LABS: Glucose,Whole Blood 129 mg/dL (75-99)
[2021-08-16] MEDS ORDERED: VANCOMYCIN 750 MG in SODIUM CHLORIDE 0.9% 250 ML IVPB ONE (12:00)
--- NOTE | 2021-08-16 13:13 | P.HPIM ---
History of Present Illness 30-year-old female came in with complaints of bilateral rib cage pain, fevers which started on Monday. Patient had an abdominal CT which showed a pneumonic infiltrate in the right lung along with some parapneumonic effusion. Patient was started on broad-spectrum antibiotics vancomycin and cefepime treating for healthcare associated pneumonia patient was recently hospitalized for couple weeks ago at that time patient was treated for intra-abdominal infection at that time. Patient has history of end-stage renal disease hemodialysis dependent. Patient has mild leukocytosis with a white blood cell count of 10 patient does h ave history of type 1 diabetes mellitus and diabetic nephropathy which led to hemodialysis dependence. REVIEW OF SYSTEMS: CONSTITUTIONAL: no malaise, no fatigue. HEENT: No recent visual problems or hearing problems. Denied any sore throat. CARDIOVASCULAR: No orthopnea, PND, no palpitations, no syncope. PULMONARY: No shortness of breath, no cough, no hemoptysis. GASTROINTESTINAL: No diarrhea, no nausea, no vomiting, no abdominal pain. NEUROLOGICAL: No headaches, no weakness, no numbness. HEMATOLOGICAL: Denies any bleeding or petechiae. GENITOURINARY: Denies any burning micturition, frequency, or urgency. MUSCULOSKELETAL/RHEUMATOLOGICAL: Denies any joint pain, swelling, or any muscle pain. ENDOCRINE: Denies any polyuria or polydipsia. The rest of the 14-point review of systems is negative. PHYSICAL EXAMINATION: GENERAL: The patient is alert and oriented x3, not in any acute distress. Well developed, well nourished. HEENT: Pupils are round and equally reacting to light. EOMI. No scleral icterus. No conjunctival pallor. Normocephalic, atraumatic. No pharyngeal erythema. No thyromegaly. CARDIOVASCULAR: S1 and S2 present. No murmurs, rubs, or gallops. PULMONARY: Chest is clear to auscultation, no wheezing or crackles. ABDOMEN: Soft, nontender, nondistended, normoactive bowel sounds. No palpable organomegaly. MUSCULOSKELETAL: No joint swelling or deformity. EXTREMITIES: No cyanosis, clubbing, or pedal edema. NEUROLOGICAL: Gross neurological examination did not reveal any focal deficits. SKIN: No rashes. Assessment and plan --Sepsis: Secondary to bacterial pneumonia most probably. Patient will be continued on IV antibiotics and infectious disease will be consulted for calcitonin will be obtained. -End-stage renal disease or dialysis dependent for which the nephrology is consulted patient will continue her hemodialysis as scheduled. -Hyponatremia secondary to an kidney disease -Type 1 diabetes mellitus for which patient will be resumed on her home regimen -Pleuritic chest pain and a parapneumonic effusion -Hypertension secondary to renal disease continue her home medications. -Depression DVT prophylaxis: sub-utaneous heparin Past Medical History Past Medical History: CVA/TIA, Diabetes Mellitus, Dialysis, Eye Disorder, Hypertension, Renal Disease Additional Past Medical History / Comment(s): ESRD with hemodialysis M/W/F, IDDM type 1, DKA, neuropathy bilateral legs/feet, diabetic retinopathy/legally blind, RLS, gastritis, severe hypokalemia, fluid retention in abdomin/legs. History of Any Multi-Drug Resistant Organisms: None Reported Past Surgical History: Appendectomy, Section, Cholecystectomy Additional Past Surgical History / Comment(s): fistula left arm Past Anesthesia/Blood Transfusion Reactions: No Reported Reaction Past Psychological History: Anxiety, Depression Smoking Status: Never smoker Past Alcohol Use History: None Reported Past Drug Use History: None Reported - Past Family History Mother Family Medical History: Cancer, Hypertension Additional Family Medical History / Comment(s): Thyroid cancer, bipolar Father Family Medical History: Seizure Disorder Additional Family Medical History / Comment(s): Epilepsy Medications and Allergies Home Medications Medication Instructions Recorded Confirmed Type Aspirin EC [Ecotrin Low Dose] 81 mg PO DAILY 04/03/21 08/15/21 History Carvedilol [Coreg] 25 mg PO BID 04/03/21 08/15/21 History Ergocalciferol (Vitamin D2) 1,250 mcg PO COPELAND 04/03/21 08/15/21 History [Drisdol (50,000 Iu)] Isosorbide Mononitrate ER [Imdur] 30 mg PO HS 04/03/21 08/15/21 History Acetaminophen Tab [Tylenol] 650 mg PO Q6HR PRN #30 tab 04/09/21 08/15/21 Rx Escitalopram [Lexapro] 20 mg PO DAILY 04/17/21 08/15/21 History rOPINIRole HCL [Requip] 0.5 mg PO HS 04/17/21 08/15/21 History Sevelamer [Renvela] 800 mg PO TID-W/MEALS 30 Days #90 05/31/21 08/15/21 Rx tab Pantoprazole Sodium [Protonix] 40 mg PO BID 30 Days #60 tab 06/04/21 08/15/21 Rx Glucagon Emergency Kit 1 mg IM ONCE PRN #1 kit 06/15/21 08/15/21 Rx Melatonin 5 - 10 mg PO HS PRN 06/29/21 08/15/21 History Furosemide [Lasix] 80 mg PO BID #60 tab 07/03/21 08/15/21 Rx minoxidiL [Loniten] 2.5 mg PO BID #60 tab 07/03/21 08/15/21 Rx Insulin Lispro [humaLOG Kwikpen] See Protocol SQ AC-TID 08/02/21 08/15/21 History Amoxicillin/Potassium Clav 1 tab PO Q12HR 7 Days #14 tab 08/06/21 08/15/21 Rx [Augmentin 500-125 Tablet] INSULIN ASPART (NovoLOG) [NovoLOG 2 unit SQ AC-TID 30 Days #10 ml 08/07/21 08/15/21 Rx (formulary)] Insulin Detemir (Levemir) [Levemir] 15 unit SQ HS #10 ml 08/07/21 08/15/21 Rx cloNIDine HCL [Catapres] 0.3 mg PO TID tab 08/07/21 08/15/21 Rx Allergies Allergy/AdvReac Type Severity Reaction Status Date / Time Fish Containing Products Allergy Rash/Hives Verified 08/15/21 18:30 [Fish] iodine Allergy Anaphylaxis Verified 08/15/21 18:30 Physical Exam Vitals: Vital Signs Temp Pulse Pulse Resp BP BP Pulse Ox 08/16/21 10:14 18 08/16/21 08:28 62 16 163/79 99 08/16/21 08:15 63 200/90 08/16/21 08:10 63 14 218/98 100 08/16/21 07:55 64 18 237/117 100 08/16/21 07:37 64 16 216/96 98 08/16/21 02:08 97.9 F 76 18 114/44 94 L 08/15/21 23:47 98.7 F 86 17 157/74 98 08/15/21 20:00 98.9 F 76 18 08/15/21 18:48 98.7 F 70 17 145/77 08/15/21 17:56 100.6 F H 84 20 98 08/15/21 14:59 100.4 F H 83 22 188/82 98 Intake and Output 08/15/21 08/16/21 08/16/21 22:59 06:59 14:59 Intake Total 200 Balance 200 Intake: Oral 200 Other: Weight 47.627 kg Results CBC & Chem 7: 08/15/21 16:02 08/16/21 07:23 Labs: Abnormal Lab Results - Last 24 Hours (Table) 08/15/21 08/15/21 08/15/21 Range/Units 16:02 16:02 20:56 RBC 2.94 L (3.80-5.40) m/uL Hgb 9.0 L D (11.4-16.0) gm/dL Hct 26.3 L (34.0-46.0) % Neutrophils # 9.4 H (1.3-7.7) k/uL Lymphocytes # 0.5 L (1.0-4.8) k/uL Sodium 131 L (137-145) mmol/L Chloride 89 L (98-107) mmol/L BUN 51 H (7-17) mg/dL Creatinine 6.53 H (0.52-1.04) mg/dL Glucose 249 H (74-99) mg/dL POC Glucose (mg/dL) 343 H (75-99) mg/dL Hemoglobin A1c (0.0-6.0) % Alkaline Phosphatase 133 H (38-126) U/L 08/16/21 08/16/21 08/16/21 Range/Units 02:21 05:12 07:14 RBC (3.80-5.40) m/uL Hgb (11.4-16.0) gm/dL Hct (34.0-46.0) % Neutrophils # (1.3-7.7) k/uL Lymphocytes # (1.0-4.8) k/uL Sodium (137-145) mmol/L Chloride (98-107) mmol/L BUN (7-17) mg/dL Creatinine (0.52-1.04) mg/dL Glucose (74-99) mg/dL POC Glucose (mg/dL) 272 H <20 L (75-99) mg/dL Hemoglobin A1c 7.8 H (0.0-6.0) % Alkaline Phosphatase (38-126) U/L 08/16/21 08/16/21 08/16/21 Range/Units 07:15 07:23 07:26 RBC (3.80-5.40) m/uL Hgb (11.4-16.0) gm/dL Hct (34.0-46.0) % Neutrophils # (1.3-7.7) k/uL Lymphocytes # (1.0-4.8) k/uL Sodium (137-145) mmol/L Chloride (98-107) mmol/L BUN (7-17) mg/dL Creatinine (0.52-1.04) mg/dL Glucose 107 H (74-99) mg/dL POC Glucose (mg/dL) <20 L 117 H (75-99) mg/dL Hemoglobin A1c (0.0-6.0) % Alkaline Phosphatase (38-126) U/L 08/16/21 Range/Units 11:31 RBC (3.80-5.40) m/uL Hgb (11.4-16.0) gm/dL Hct (34.0-46.0) % Neutrophils # (1.3-7.7) k/uL Lymphocytes # (1.0-4.8) k/uL Sodium (137-145) mmol/L Chloride (98-107) mmol/L BUN (7-17) mg/dL Creatinine (0.52-1.04) mg/dL Glucose (74-99) mg/dL POC Glucose (mg/dL) 129 H (75-99) mg/dL Hemoglobin A1c (0.0-6.0) % Alkaline Phosphatase (38-126) U/L
[2021-08-16] MEDS ORDERED: diphenhydrAMINE 50 MG/ML 1 ML VIAL IVP ONE (14:00)
[2021-08-16 14:19] VITALS: BMI 18.0
[2021-08-16 16:42] LABS: Glucose,Whole Blood 136 mg/dL (75-99)
[2021-08-16 20:38] LABS: Glucose,Whole Blood 357 mg/dL (75-99)
[2021-08-16] MEDS: MELATONIN 5 MG TABLET PO PRN (21:12)
[2021-08-16] MEDS: HEPARIN SODIUM,PORCINE/PF 5,000 UNIT/0.5 ML SYRINGE SQ SCH (21:17)
[2021-08-16] MEDS: ISOSORBIDE MONONITRATE ER 30 MG TAB.ER.24H PO SCH (21:39)
[2021-08-16] MEDS: PIPERACILLIN-TAZOBACTAM 3.375 GM in SODIUM CHLORIDE 0.9% 100 ML IVPB SCH (23:20)
--- NOTE | 2021-08-16 23:47 | P.CONS ---
History of Present Illness - Reason for Consult Consult date: 08/16/21 Pneumonia Requesting physician: Cecilia Sheets - Chief Complaint Fever x one day - History of Present Illness Patient is a 30-year female who was recently admitted at this facility and she was treated for acute nausea vomiting and diarrhea concerning for possi ble gastroenteritis she did have elevated procalcitonin and there was concern for possible aspiration pneumonitis she was treated with IV chemotherapy subsequent discharged home on oral Augmentin for about a week, patient mention she was not feeling well on Monday hence she went for dialysis on Monday with the patient was noticed to have a fever she was given Tylenol dialysis was completed and she was sent home patient mentioned she did have persistent fever for the patient presented to [facility] ER yesterday afternoon, patient on presentation to the hospital did have a fever 100.6 degree form height mild hypoxemia currently on 2 L nasal cannula patient did have a normal white count with a left shift arnold PCR was negative influenza PCR was negative chest x-ray did shows some multifocal infiltrate suspicious for pneumonia patient was given a dose of cefepime in the ER and has been treated with the vancomycin infectious disease was consulted for further management of antibiotic therapy Review of Systems Positive point has been mentioned in the HPI rest of the systems are negative Past Medical History Past Medical History: CVA/TIA, Diabetes Mellitus, Dialysis, Eye Disorder, Hypertension, Renal Disease Additional Past Medical History / Comment(s): ESRD with hemodialysis M/W/F, IDDM type 1, DKA, neuropathy bilateral legs/feet, diabetic retinopathy/legally blind, RLS, gastritis, severe hypokalemia, fluid retention in abdomin/legs. History of Any Multi-Drug Resistant Organisms: None Reported Past Surgical History: Appendectomy, Section, Cholecystectomy Additional Past Surgical History / Comment(s): fistula left arm Past Anesthesia/Blood Transfusion Reactions: No Reported Reaction Past Psychological History: Anxiety, Depression Smoking Status: Never smoker Past Alcohol Use History: None Reported Past Drug Use History: None Reported - Past Family History Mother Family Medical History: Cancer, Hypertension Additional Family Medical History / Comment(s): Thyroid cancer, bipolar Father Family Medical History: Seizure Disorder Additional Family Medical History / Comment(s): Epilepsy Medications and Allergies Home Medications Medication Instructions Recorded Confirmed Type Aspirin EC [Ecotrin Low Dose] 81 mg PO DAILY 04/03/21 08/15/21 History Carvedilol [Coreg] 25 mg PO BID 04/03/21 08/15/21 History Ergocalciferol (Vitamin D2) 1,250 mcg PO COPELAND 04/03/21 08/15/21 History [Drisdol (50,000 Iu)] Isosorbide Mononitrate ER [Imdur] 30 mg PO HS 04/03/21 08/15/21 History Acetaminophen Tab [Tylenol] 650 mg PO Q6HR PRN #30 tab 04/09/21 08/15/21 Rx Escitalopram [Lexapro] 20 mg PO DAILY 04/17/21 08/15/21 History rOPINIRole HCL [Requip] 0.5 mg PO HS 04/17/21 08/15/21 History Sevelamer [Renvela] 800 mg PO TID-W/MEALS 30 Days #90 05/31/21 08/15/21 Rx tab Pantoprazole Sodium [Protonix] 40 mg PO BID 30 Days #60 tab 06/04/21 08/15/21 Rx Glucagon Emergency Kit 1 mg IM ONCE PRN #1 kit 06/15/21 08/15/21 Rx Melatonin 5 - 10 mg PO HS PRN 06/29/21 08/15/21 History Furosemide [Lasix] 80 mg PO BID #60 tab 07/03/21 08/15/21 Rx minoxidiL [Loniten] 2.5 mg PO BID #60 tab 07/03/21 08/15/21 Rx Insulin Lispro [humaLOG Kwikpen] See Protocol SQ AC-TID 08/02/21 08/15/21 History Amoxicillin/Potassium Clav 1 tab PO Q12HR 7 Days #14 tab 08/06/21 08/15/21 Rx [Augmentin 500-125 Tablet] INSULIN ASPART (NovoLOG) [NovoLOG 2 unit SQ AC-TID 30 Days #10 ml 08/07/21 08/15/21 Rx (formulary)] Insulin Detemir (Levemir) [Levemir] 15 unit SQ HS #10 ml 08/07/21 08/15/21 Rx cloNIDine HCL [Catapres] 0.3 mg PO TID tab 08/07/21 08/15/21 Rx Allergies Allergy/AdvReac Type Severity Reaction Status Date / Time Fish Containing Products Allergy Rash/Hives Verified 08/15/21 18:30 [Fish] iodine Allergy Anaphylaxis Verified 08/15/21 18:30 Physical Exam Vitals: Vital Signs Temp Pulse Pulse Resp BP BP Pulse Ox 08/16/21 10:14 18 08/16/21 08:28 62 16 163/79 99 08/16/21 08:15 63 200/90 08/16/21 08:10 63 14 218/98 100 08/16/21 07:55 64 18 237/117 100 08/16/21 07:37 64 16 216/96 98 08/16/21 02:08 97.9 F 76 18 114/44 94 L 08/15/21 23:47 98.7 F 86 17 157/74 98 08/15/21 20:00 98.9 F 76 18 08/15/21 18:48 98.7 F 70 17 145/77 08/15/21 17:56 100.6 F H 84 20 98 08/15/21 14:59 100.4 F H 83 22 188/82 98 Intake and Output 08/15/21 08/16/21 08/16/21 22:59 06:59 14:59 Intake Total 200 Balance 200 Intake: Oral 200 Other: Weight 47.627 kg GENERAL DESCRIPTION: Middle-aged female lying in bed, no distress. No tachypnea or accessory muscle of respiration use. HEENT: Shows Pallor , no scleral icterus. Oral mucous membrane is dry. No pharyngeal erythema or thrush NECK: Trachea central, no thyromegaly. LUNGS: Unlabored breathing. Coarse breath sound at the base HEART: S1, S2, regular rate and rhythm. No loud murmur ABDOMEN: Soft, no tenderness , guarding or rigidity, no organomegaly EXTREMITIES: No edema of feet. SKIN: No rash, no masses palpable. NEUROLOGICAL: The patient is awake, alert, oriented x3, mood and affect normal. Results CBC & Chem 7: 08/15/21 16:02 08/16/21 07:23 Labs: Abnormal Lab Results - Last 24 Hours (Table) 08/15/21 08/15/21 08/15/21 Range/Units 16:02 16:02 20:56 RBC 2.94 L (3.80-5.40) m/uL Hgb 9.0 L D (11.4-16.0) gm/dL Hct 26.3 L (34.0-46.0) % Neutrophils # 9.4 H (1.3-7.7) k/uL Lymphocytes # 0.5 L (1.0-4.8) k/uL Sodium 131 L (137-145) mmol/L Chloride 89 L (98-107) mmol/L BUN 51 H (7-17) mg/dL Creatinine 6.53 H (0.52-1.04) mg/dL Glucose 249 H (74-99) mg/dL POC Glucose (mg/dL) 343 H (75-99) mg/dL Hemoglobin A1c (0.0-6.0) % Alkaline Phosphatase 133 H (38-126) U/L 08/16/21 08/16/21 08/16/21 Range/Units 02:21 05:12 07:14 RBC (3.80-5.40) m/uL Hgb (11.4-16.0) gm/dL Hct (34.0-46.0) % Neutrophils # (1.3-7.7) k/uL Lymphocytes # (1.0-4.8) k/uL Sodium (137-145) mmol/L Chloride (98-107) mmol/L BUN (7-17) mg/dL Creatinine (0.52-1.04) mg/dL Glucose (74-99) mg/dL POC Glucose (mg/dL) 272 H <20 L (75-99) mg/dL Hemoglobin A1c 7.8 H (0.0-6.0) % Alkaline Phosphatase (38-126) U/L 08/16/21 08/16/21 08/16/21 Range/Units 07:15 07:23 07:26 RBC (3.80-5.40) m/uL Hgb (11.4-16.0) gm/dL Hct (34.0-46.0) % Neutrophils # (1.3-7.7) k/uL Lymphocytes # (1.0-4.8) k/uL Sodium (137-145) mmol/L Chloride (98-107) mmol/L BUN (7-17) mg/dL Creatinine (0.52-1.04) mg/dL Glucose 107 H (74-99) mg/dL POC Glucose (mg/dL) <20 L 117 H (75-99) mg/dL Hemoglobin A1c (0.0-6.0) % Alkaline Phosphatase (38-126) U/L 08/16/21 Range/Units 11:31 RBC (3.80-5.40) m/uL Hgb (11.4-16.0) gm/dL Hct (34.0-46.0) % Neutrophils # (1.3-7.7) k/uL Lymphocytes # (1.0-4.8) k/uL Sodium (137-145) mmol/L Chloride (98-107) mmol/L BUN (7-17) mg/dL Creatinine (0.52-1.04) mg/dL Glucose (74-99) mg/dL POC Glucose (mg/dL) 129 H (75-99) mg/dL Hemoglobin A1c (0.0-6.0) % Alkaline Phosphatase (38-126) U/L Assessment and Plan (1) Sepsis due to pneumonia Current Visit: Yes Status: Acute Code(s): J18.9 - PNEUMONIA, UNSPECIFIED ORGANISM; A41.9 - SEPSIS, UNSPECIFIED ORGANISM SNOMED Code(s): 53131523 Plan: 1patient presented to hospital with fever in this patient also have a left lower rib cage pain which is pleuritic concerning for possible pneumonia and question of possible aspiration etiology recently completed course of oral Augmentin. 2we will try to obtain a sputum for Gram stain and culture 3check a CRP and a procalcitonin level next 4discontinue the vancomycin 5Zosyn 3.375 g every 12 hours We will follow on clinical condition and cultures to further adjust medication if needed Thank you for this consultation we will follow the patient along with you Time with Patient: Greater than 30
[2021-08-17 02:05] LABS: Glucose,Whole Blood 353 mg/dL (75-99)
[2021-08-17] MEDS: HYDROcodone/APAP 5-325MG 1 EACH TAB PO PRN (02:56)
[2021-08-17 05:25] LABS: ALT 20 U/L (4-34); AST 18 U/L (14-36); African American GFR (CKD) 13 (>60 ml/min/1.73 sqM); Albumin 3.2 g/dL (3.5-5.0); Albumin/Globulin Ratio 1.3; Alkaline Phosphatase 107 U/L (38-126); Anion Gap 18 mmol/L; Blood Urea Nitrogen 32 mg/dL (7-17); Calcium 8.1 mg/dL (8.4-10.2); Carbon Dioxide 17 mmol/L (22-30); Chloride 97 mmol/L (98-107); Globulin 2.4 g/dL; Glucose 467 mg/dL (74-99); Non-African American GFR(CKD) 11 (>60 ml/min/1.73 sqM); Potassium 4.6 mmol/L (3.5-5.1); Sodium 132 mmol/L (137-145); Total Bilirubin 0.7 mg/dL (0.2-1.3); Total Protein 5.6 g/dL (6.3-8.2)
[2021-08-17 05:28] LABS: Vancomycin,Random 12.8 ug/mL
[2021-08-17 06:55] LABS: Glucose,Whole Blood 588 mg/dL (75-99)
[2021-08-17] MEDS: INSULIN ASPART (NovoLOG) 100 UNIT/ML VIAL SQ SCH ×4 (07:11→23:02)
[2021-08-17] MEDS: carvediloL 12.5 MG TAB PO SCH ×2 (07:41→17:23)
[2021-08-17] MEDS: SEVELAMER 800 MG TAB PO SCH ×3 (07:41→17:23)
[2021-08-17] MEDS: ASPIRIN 81 MG PO SCH (07:41)
[2021-08-17] MEDS: cloNIDine HCL 0.1 MG TAB PO SCH ×3 (07:42→21:39)
[2021-08-17] MEDS: ESCITALOPRAM 20 MG TAB PO SCH (07:42)
[2021-08-17] MEDS: PANTOPRAZOLE 40 MG TABLET PO SCH ×2 (07:42→21:38)
[2021-08-17] MEDS: minoxidiL 2.5 MG TAB PO SCH ×2 (07:42→21:38)
[2021-08-17] MEDS: HEPARIN SODIUM,PORCINE/PF 5,000 UNIT/0.5 ML SYRINGE SQ SCH ×2 (07:43→21:39)
[2021-08-17] MEDS ORDERED: INSULIN ASPART (NovoLOG) 100 UNIT/ML VIAL SQ ONE (07:45)
[2021-08-17] MEDS ORDERED: diphenhydrAMINE 50 MG/ML 1 ML VIAL IVP STA (10:06)
[2021-08-17] MEDS: PIPERACILLIN-TAZOBACTAM 3.375 GM in SODIUM CHLORIDE 0.9% 100 ML IVPB SCH ×2 (10:21→21:40)
[2021-08-17 10:33] LABS: Basophils # (A) 0.02 X 10*3/uL (0.00-0.10); Basophils % (A) 0.5 %; Eosinophils % (A) 2.4 %; HCT 19.7 % (37.2-46.3); HGB 6.2 g/dL (12.0-15.0); Immature Grans, Automated 0.5 %; Lymphocytes % (A) 9.6 %; MCH 29.2 pg (27.0-32.0); MCHC 31.5 g/dL (32.0-37.0); MCV 92.9 fL (80.0-97.0); Mean Platelet Volume 12.4 fL (9.5-12.2); Monocytes # (A) 0.22 X 10*3/uL (0.20-1.00); Monocytes % (A) 5.3 %; NRBC Per 100 WBC 0 /100 WBCS (0.0-0.0); Neutrophils # (A) 3.42 X 10*3/uL (1.80-7.70); Neutrophils % (A) 81.7 %; Platelet Count 183 X 10*3/uL (140-440); RBC 2.12 X 10*6/uL (4.10-5.20); RDW 13.7 % (11.5-14.5); WBC 4.18 X 10*3/uL (4.50-10.00)
[2021-08-17 11:32] LABS: Glucose,Whole Blood 246 mg/dL (75-99)
--- NOTE | 2021-08-17 11:36 | P.PN ---
Subjective Patient is seen for follow-up for end-stage renal disease. She had 3.5 L of ultrafiltration yesterday. Blood pressure is improved Cough persists No other complaints today Terrell patient is scheduled for repeat hemodialysis today for volume overload Objective - Vital Signs Vital signs: Vital Signs Temp 98.6 F 08/17/21 07:43 Pulse 79 08/17/21 07:43 Resp 12 08/17/21 07:43 BP 153/76 08/17/21 07:43 Pulse Ox 100 08/17/21 07:43 Intake & Output 08/16/21 08/17/21 08/17/21 18:59 06:59 18:59 Intake Total 200 340 Output Total 3500 Balance -3300 340 Weight 47.627 kg Intake: Intake, IV Titration 100 Amount Piperacillin-Tazobactam 3 100 .375 gm In Sodium Chloride 0.9% 100 ml @ 25 mls/hr IVPB Q12H [facility] Rx# :[id number] Oral 200 240 Output: Hemodialysis 3500 Other: # Voids 1 0 - Exam Awake, comfortable, not in any acute distress Examination of the heart S1 and S2 Examination lungs bilateral breath sounds are heard Abdomen is soft Examination lower extremities shows no significant edema [employer] exam grossly intact - Labs CBC & Chem 7: 08/17/21 04:12 08/17/21 04:12 Labs: Abnormal Lab Results - Last 24 Hours (Table) 08/16/21 08/16/21 08/17/21 Range/Units 16:30 20:36 02:03 WBC (4.50-10.00) X 10*3/uL RBC (4.10-5.20) X 10*6/uL Hgb (12.0-15.0) g/dL Hct (37.2-46.3) % MCHC (32.0-37.0) g/dL MPV (9.5-12.2) fL Lymphocytes # (0.90-5.00) X 10*3/uL Sodium (137-145) mmol/L Chloride (98-107) mmol/L Carbon Dioxide (22-30) mmol/L BUN (7-17) mg/dL Creatinine (0.52-1.04) mg/dL Glucose (74-99) mg/dL POC Glucose (mg/dL) 136 H 357 H 353 H (75-99) mg/dL Calcium (8.4-10.2) mg/dL C-Reactive Protein (<1.0) mg/dL Total Protein (6.3-8.2) g/dL Albumin (3.5-5.0) g/dL Procalcitonin (0.02-0.09) ng/mL 08/17/21 08/17/21 08/17/21 Range/Units 04:12 04:12 04:12 WBC 4.18 L (4.50-10.00) X 10*3/uL RBC 2.12 L (4.10-5.20) X 10*6/uL Hgb 6.2 L* (12.0-15.0) g/dL Hct 19.7 L* (37.2-46.3) % MCHC 31.5 L (32.0-37.0) g/dL MPV 12.4 H (9.5-12.2) fL Lymphocytes # 0.40 L (0.90-5.00) X 10*3/uL Sodium 132 L (137-145) mmol/L Chloride 97 L (98-107) mmol/L Carbon Dioxide 17 L (22-30) mmol/L BUN 32 H (7-17) mg/dL Creatinine 4.82 H (0.52-1.04) mg/dL Glucose 467 H (74-99) mg/dL POC Glucose (mg/dL) (75-99) mg/dL Calcium 8.1 L (8.4-10.2) mg/dL C-Reactive Protein 22.0 H (<1.0) mg/dL Total Protein 5.6 L (6.3-8.2) g/dL Albumin 3.2 L (3.5-5.0) g/dL Procalcitonin 25.80 H (0.02-0.09) ng/mL 08/17/21 08/17/21 Range/Units 06:54 11:30 WBC (4.50-10.00) X 10*3/uL RBC (4.10-5.20) X 10*6/uL Hgb (12.0-15.0) g/dL Hct (37.2-46.3) % MCHC (32.0-37.0) g/dL MPV (9.5-12.2) fL Lymphocytes # (0.90-5.00) X 10*3/uL Sodium (137-145) mmol/L Chloride (98-107) mmol/L Carbon Dioxide (22-30) mmol/L BUN (7-17) mg/dL Creatinine (0.52-1.04) mg/dL Glucose (74-99) mg/dL POC Glucose (mg/dL) 588 H 246 H (75-99) mg/dL Calcium (8.4-10.2) mg/dL C-Reactive Protein (<1.0) mg/dL Total Protein (6.3-8.2) g/dL Albumin (3.5-5.0) g/dL Procalcitonin (0.02-0.09) ng/mL Microbiology - Last 24 Hours (Table) 08/15/21 19:08 Blood Culture - Preliminary Blood No Growth after 24 hours 08/15/21 19:10 Blood Culture - Preliminary Blood No Growth after 24 hours Assessment and Plan Assessment: 1. End-stage renal disease on hemodialysis on a Monday schedule 2. Fluid overload 3. Fever rule out pneumonia 4. Recent hospitalization for fluid overload with large pericardial effusion status post aggressive ultrafiltration of about 12 L during her stay 5. Hypertension partly volume sensitive improves with aggressive ultrafi ltration. Continue current medications Plan: Repeat hemodialysis today. Continue current antihypertensive treatment. Continue antibiotics
[2021-08-17 12:05] LABS: Glucose,Whole Blood 210 mg/dL (75-99)
[2021-08-17] MEDS: HYDROmorphone 1 MG/ML 1 ML SYRINGE IVP PRN ×2 (13:02→22:56)
[2021-08-17] MEDS: SODIUM CHLORIDE 0.9% 1,000 ML IV SCH ×2 (13:12→17:24)
[2021-08-17 13:50] LABS: Glucose,Whole Blood 150 mg/dL (75-99)
[2021-08-17 15:09] LABS: Basophils % (A) 0 %; Eosinophils # (A) 0.1 k/uL (0-0.7); Eosinophils % (A) 4 %; HCT 25.2 % (34.0-46.0); HGB 8.4 gm/dL (11.4-16.0); Lymphocytes # (A) 0.5 k/uL (1.0-4.8); Lymphocytes % (A) 14 %; MCH 30.1 pg (25.0-35.0); MCHC 33.6 g/dL (31.0-37.0); MCV 89.6 fL (80.0-100.0); Mean Platelet Volume 9.6; Monocytes # (A) 0.2 k/uL (0-1.0); Monocytes % (A) 5 %; Neutrophils # (A) 2.4 k/uL (1.3-7.7); Neutrophils % (A) 74 %; Platelet Count 237 k/uL (150-450); RBC 2.81 m/uL (3.80-5.40); RDW 14.4 % (11.5-15.5); WBC 3.2 k/uL (3.8-10.6)
[2021-08-17 15:14] LABS: African American GFR (CKD) 25 (>60 ml/min/1.73 sqM); Anion Gap 11 mmol/L; Blood Urea Nitrogen 18 mg/dL (7-17); Calcium 8.6 mg/dL (8.4-10.2); Carbon Dioxide 25 mmol/L (22-30); Chloride 99 mmol/L (98-107); Glucose 104 mg/dL (74-99); Non-African American GFR(CKD) 21 (>60 ml/min/1.73 sqM); Potassium 3.3 mmol/L (3.5-5.1); Sodium 135 mmol/L (137-145)
[2021-08-17 16:10] LABS: Glucose,Whole Blood 84 mg/dL (75-99)
[2021-08-17] MEDS: BENZOCAINE/MENTHOL LOZENG 1 EACH LOZENGE MUCOUS MEM PRN (17:22)
[2021-08-17] MEDS: BENZONATATE 100 MG CAP PO PRN (17:22)
[2021-08-17] MEDS: HYDROmorphone 0.5 MG/0.5 ML SYRINGE IVP PRN (18:52)
[2021-08-17 21:20] LABS: Glucose,Whole Blood 598 mg/dL (75-99)
[2021-08-17] MEDS ORDERED: INSULIN REGULAR BOLUS (FROM DRIP BAG) IV ONE (21:31)
[2021-08-17] MEDS: ACETAMINOPHEN TAB 325 MG TAB PO PRN (21:38)
[2021-08-17] MEDS: ISOSORBIDE MONONITRATE ER 30 MG TAB.ER.24H PO SCH (21:39)
[2021-08-17] MEDS ORDERED: INSULIN REGULAR 100 UNIT in SODIUM CHLORIDE 0.9% 100 ML IV SCH (21:45)
[2021-08-17] MEDS: MELATONIN 5 MG TABLET PO PRN (21:47)
[2021-08-17] MEDS ORDERED: POTASSIUM CHLORIDE ER 20 MEQ TAB.ER PO ONE (22:15)
--- NOTE | 2021-08-17 22:18 | P.PN ---
Subjective Progress Note Date: 08/17/21 30-year-old female came in with complaints of bilateral rib cage pain, fevers which started on Monday. Patient had an abdominal CT which showed a pneumonic infiltrate in the right lung along with some parapneumonic effusion. Patient was started on broad-spectrum antibiotics vancomycin and cefepime treating for healthcare associated pneumonia patient was recently hospitalized for couple weeks ago at that time patient was treated for intra-abdominal infection at that time. Patient has history of end-stage renal disease hemodialysis dependent. Patient has mild leukocytosis with a white blood cell count of 10 patient does have history of type 1 diabetes mellitus and diabetic nephropathy which led to hemodialysis dependence. 08/17/2021 Patient evaluated today resting in bed during hemodialysis. No acute complaints over night. Continues with dry non productive cough. States ribs are sore from coughing. Denies fever, chills, dysuria, abdominal pain. Has been having loose stools since being started on antibiotics. Blood cultures negative so far. Labs today show WBC 3.2, hgb today 6.2, repeat 8.4 s/p 1 unit PRBC which patient received during hemodialysis. Sodium repeat 135, potassium 3.3, BUN 18, creatinine 2.84, blood glucose elevated today in the 500s. Patient has not been getting levemir since admission as blood sugar was in the 20s at that time. Improved to 80s today with levemir. Continues on IV antibiotics, followed closely by infectious disease. Urine culture pending. REVIEW OF SYSTEMS: CONSTITUTIONAL: no malaise, no fatigue. HEENT: No recent visual problems or hearing problems. Denied any sore throat. CARDIOVASCULAR: No orthopnea, PND, no palpitations, no syncope. PULMONARY: No shortness of breath, no cough, no hemoptysis. GASTROINTESTINAL: No diarrhea, no nausea, no vomiting, no abdominal pain. All medications reviewed. PHYSICAL EXAMINATION: GENERAL: The patient is alert and oriented x3, not in any acute distress. Well developed, well nourished. HEENT: Pupils are round and equally reacting to light. EOMI. No scleral icterus. No conjunctival pallor. Normocephalic, atraumatic. No pharyngeal erythema. No thyromegaly. CARDIOVASCULAR: S1 and S2 present. No murmurs, rubs, or gallops. PULMONARY: Chest is clear to auscultation, no wheezing or crackles. ABDOMEN: Soft, nontender, nondistended, normoactive bowel sounds. No palpable organomegaly. MUSCULOSKELETAL: No joint swelling or deformity. EXTREMITIES: No cyanosis, clubbing, or pedal edema. NEUROLOGICAL: Gross neurological examination did not reveal any focal deficits. SKIN: No rashes. Assessment and plan -Sepsis: Secondary to bacterial pneumonia most probably. Patient will be continued on IV antibiotics and infectious disease consulted, procalcitonin level 25.80 -End-stage renal disease or dialysis dependent for which the nephrology is on consult, on dialysis monday, underwent dialysis 2 days in a row. -Hyponatremia secondary to an kidney disease -Type 1 diabetes mellitus, uncontrolled with hyperglycemia, resume home medications and monitor closely may need insulin gtt if insulin remains elevated which was discussed with patient today -Pleuritic chest pain and a parapneumonic effusion -Hypertension secondary to renal disease continue her home medications. -Depression DVT prophylaxis: subcutaneous heparin GI prophylaxis Full Code The impression and plan of care has been dictated by Jael Keane, Nurse Practitioner as directed. Dr. Sudeep MD I have performed a history and physical examination and medical decision making of this patient, discussed the same with the dictator, and agree with the dictators assessment and plan as written, documented as a scribe. Based on total visit time, I have performed more than 50% of this visit. Objective - Vital Signs Vital signs: Vital Signs Temp 97.9 F 08/17/21 13:50 Pulse 75 08/17/21 13:50 Resp 16 08/17/21 13:50 BP 173/89 08/17/21 13:50 Pulse Ox 100 08/17/21 13:50 Intake & Output 08/16/21 08/17/21 08/17/21 18:59 06:59 18:59 Intake Total 200 340 310 Output Total 3500 Balance -3300 340 310 Weight 47.627 kg Intake: Intake, IV Titration 100 Amount Piperacillin-Tazobactam 3 100 .375 gm In Sodium Chloride 0.9% 100 ml @ 25 mls/hr IVPB Q12H [facility] Rx# :[id number] Oral 200 240 Blood Product 310 Rc As-1 Unit 310 [id number] Output: Hemodialysis 3500 Other: # Voids 1 0 - Labs CBC & Chem 7: 08/17/21 15:06 08/17/21 14:37 Labs: Abnormal Lab Results - Last 24 Hours (Table) 08/16/21 08/16/21 08/17/21 Range/Units 16:30 20:36 02:03 WBC (4.50-10.00) X 10*3/uL RBC (4.10-5.20) X 10*6/uL Hgb (12.0-15.0) g/dL Hct (37.2-46.3) % MCHC (32.0-37.0) g/dL MPV (9.5-12.2) fL Lymphocytes # (0.90-5.00) X 10*3/uL Sodium (137-145) mmol/L Chloride (98-107) mmol/L Carbon Dioxide (22-30) mmol/L BUN (7-17) mg/dL Creatinine (0.52-1.04) mg/dL Glucose (74-99) mg/dL POC Glucose (mg/dL) 136 H 357 H 353 H (75-99) mg/dL Calcium (8.4-10.2) mg/dL C-Reactive Protein (<1.0) mg/dL Total Protein (6.3-8.2) g/dL Albumin (3.5-5.0) g/dL Procalcitonin (0.02-0.09) ng/mL Crossmatch 08/17/21 08/17/21 08/17/21 Range/Units 04:12 04:12 04:12 WBC 4.18 L (4.50-10.00) X 10*3/uL RBC 2.12 L (4.10-5.20) X 10*6/uL Hgb 6.2 L* (12.0-15.0) g/dL Hct 19.7 L* (37.2-46.3) % MCHC 31.5 L (32.0-37.0) g/dL MPV 12.4 H (9.5-12.2) fL Lymphocytes # 0.40 L (0.90-5.00) X 10*3/uL Sodium 132 L (137-145) mmol/L Chloride 97 L (98-107) mmol/L Carbon Dioxide 17 L (22-30) mmol/L BUN 32 H (7-17) mg/dL Creatinine 4.82 H (0.52-1.04) mg/dL Glucose 467 H (74-99) mg/dL POC Glucose (mg/dL) (75-99) mg/dL Calcium 8.1 L (8.4-10.2) mg/dL C-Reactive Protein 22.0 H (<1.0) mg/dL Total Protein 5.6 L (6.3-8.2) g/dL Albumin 3.2 L (3.5-5.0) g/dL Procalcitonin 25.80 H (0.02-0.09) ng/mL Crossmatch 08/17/21 08/17/21 08/17/21 Range/Units 06:54 11:15 11:30 WBC (4.50-10.00) X 10*3/uL RBC (4.10-5.20) X 10*6/uL Hgb (12.0-15.0) g/dL Hct (37.2-46.3) % MCHC (32.0-37.0) g/dL MPV (9.5-12.2) fL Lymphocytes # (0.90-5.00) X 10*3/uL Sodium (137-145) mmol/L Chloride (98-107) mmol/L Carbon Dioxide (22-30) mmol/L BUN (7-17) mg/dL Creatinine (0.52-1.04) mg/dL Glucose (74-99) mg/dL POC Glucose (mg/dL) 588 H 246 H (75-99) mg/dL Calcium (8.4-10.2) mg/dL C-Reactive Protein (<1.0) mg/dL Total Protein (6.3-8.2) g/dL Albumin (3.5-5.0) g/dL Procalcitonin (0.02-0.09) ng/mL Crossmatch See Detail 08/17/21 08/17/21 Range/Units 12:03 13:48 WBC (4.50-10.00) X 10*3/uL RBC (4.10-5.20) X 10*6/uL Hgb (12.0-15.0) g/dL Hct (37.2-46.3) % MCHC (32.0-37.0) g/dL MPV (9.5-12.2) fL Lymphocytes # (0.90-5.00) X 10*3/uL Sodium (137-145) mmol/L Chloride (98-107) mmol/L Carbon Dioxide (22-30) mmol/L BUN (7-17) mg/dL Creatinine (0.52-1.04) mg/dL Glucose (74-99) mg/dL POC Glucose (mg/dL) 210 H 150 H (75-99) mg/dL Calcium (8.4-10.2) mg/dL C-Reactive Protein (<1.0) mg/dL Total Protein (6.3-8.2) g/dL Albumin (3.5-5.0) g/dL Procalcitonin (0.02-0.09) ng/mL Crossmatch Microbiology - Last 24 Hours (Table) 08/15/21 19:08 Blood Culture - Preliminary Blood No Growth after 24 hours 08/15/21 19:10 Blood Culture - Preliminary Blood No Growth after 24 hours Assessment and Plan Time with Patient: Less than 30
[2021-08-17 22:37] LABS: Glucose,Whole Blood >600 mg/dL (75-99)
[2021-08-17 22:37] LABS: Glucose,Whole Blood >600 mg/dL (75-99)
--- NOTE | 2021-08-17 23:22 | P.PN ---
Subjective Progress Note Date: 08/17/21 Principal diagnosis: Pneumonia Patient is a 30-year-old female with a past medical history significant for end-stage renal disease on dialysis presented to the hospital w ith a fever of left lower chest pain concerning for pneumonia. On today's evaluation that is 08/17/2021, the patient denies having any fever or any chills, the patient is pretty steady comfortably, chest pain/decreased intensity is having a cough but not bringing up any sputum and no vomiting no abdominal pain and no diarrhea Objective - Vital Signs Vital signs: Vital Signs Temp 97.6 F 08/17/21 13:09 Pulse 72 08/17/21 13:09 Resp 16 08/17/21 13:09 BP 143/90 08/17/21 13:09 Pulse Ox 100 08/17/21 13:09 Intake & Output 08/16/21 08/17/21 08/17/21 18:59 06:59 18:59 Intake Total 200 340 0 Output Total 3500 Balance -3300 340 0 Weight 47.627 kg Intake: Intake, IV Titration 100 Amount Piperacillin-Tazobactam 3 100 .375 gm In Sodium Chloride 0.9% 100 ml @ 25 mls/hr IVPB Q12H [facility] Rx# :[id number] Oral 200 240 Blood Product 0 Rc As-1 Unit 0 [id number] Output: Hemodialysis 3500 Other: # Voids 1 0 - Exam GENERAL DESCRIPTION: Middle-age female lying in bed in no distress RESPIRATORY SYSTEM: Unlabored breathing , decreased breath sounds at bases HEART: S1 S2 regular rate and rhythm , ABDOMEN: Soft , no tenderness EXTREMITIES: No edema feet - Labs CBC & Chem 7: 08/17/21 15:06 08/17/21 14:37 Labs: Abnormal Lab Results - Last 24 Hours (Table) 08/16/21 08/16/21 08/17/21 Range/Units 16:30 20:36 02:03 WBC (4.50-10.00) X 10*3/uL RBC (4.10-5.20) X 10*6/uL Hgb (12.0-15.0) g/dL Hct (37.2-46.3) % MCHC (32.0-37.0) g/dL MPV (9.5-12.2) fL Lymphocytes # (0.90-5.00) X 10*3/uL Sodium (137-145) mmol/L Chloride (98-107) mmol/L Carbon Dioxide (22-30) mmol/L BUN (7-17) mg/dL Creatinine (0.52-1.04) mg/dL Glucose (74-99) mg/dL POC Glucose (mg/dL) 136 H 357 H 353 H (75-99) mg/dL Calcium (8.4-10.2) mg/dL C-Reactive Protein (<1.0) mg/dL Total Protein (6.3-8.2) g/dL Albumin (3.5-5.0) g/dL Procalcitonin (0.02-0.09) ng/mL Crossmatch 08/17/21 08/17/21 08/17/21 Range/Units 04:12 04:12 04:12 WBC 4.18 L (4.50-10.00) X 10*3/uL RBC 2.12 L (4.10-5.20) X 10*6/uL Hgb 6.2 L* (12.0-15.0) g/dL Hct 19.7 L* (37.2-46.3) % MCHC 31.5 L (32.0-37.0) g/dL MPV 12.4 H (9.5-12.2) fL Lymphocytes # 0.40 L (0.90-5.00) X 10*3/uL Sodium 132 L (137-145) mmol/L Chloride 97 L (98-107) mmol/L Carbon Dioxide 17 L (22-30) mmol/L BUN 32 H (7-17) mg/dL Creatinine 4.82 H (0.52-1.04) mg/dL Glucose 467 H (74-99) mg/dL POC Glucose (mg/dL) (75-99) mg/dL Calcium 8.1 L (8.4-10.2) mg/dL C-Reactive Protein 22.0 H (<1.0) mg/dL Total Protein 5.6 L (6.3-8.2) g/dL Albumin 3.2 L (3.5-5.0) g/dL Procalcitonin 25.80 H (0.02-0.09) ng/mL Crossmatch 08/17/21 08/17/21 08/17/21 Range/Units 06:54 11:15 11:30 WBC (4.50-10.00) X 10*3/uL RBC (4.10-5.20) X 10*6/uL Hgb (12.0-15.0) g/dL Hct (37.2-46.3) % MCHC (32.0-37.0) g/dL MPV (9.5-12.2) fL Lymphocytes # (0.90-5.00) X 10*3/uL Sodium (137-145) mmol/L Chloride (98-107) mmol/L Carbon Dioxide (22-30) mmol/L BUN (7-17) mg/dL Creatinine (0.52-1.04) mg/dL Glucose (74-99) mg/dL POC Glucose (mg/dL) 588 H 246 H (75-99) mg/dL Calcium (8.4-10.2) mg/dL C-Reactive Protein (<1.0) mg/dL Total Protein (6.3-8.2) g/dL Albumin (3.5-5.0) g/dL Procalcitonin (0.02-0.09) ng/mL Crossmatch See Detail 08/17/21 Range/Units 12:03 WBC (4.50-10.00) X 10*3/uL RBC (4.10-5.20) X 10*6/uL Hgb (12.0-15.0) g/dL Hct (37.2-46.3) % MCHC (32.0-37.0) g/dL MPV (9.5-12.2) fL Lymphocytes # (0.90-5.00) X 10*3/uL Sodium (137-145) mmol/L Chloride (98-107) mmol/L Carbon Dioxide (22-30) mmol/L BUN (7-17) mg/dL Creatinine (0.52-1.04) mg/dL Glucose (74-99) mg/dL POC Glucose (mg/dL) 210 H (75-99) mg/dL Calcium (8.4-10.2) mg/dL C-Reactive Protein (<1.0) mg/dL Total Protein (6.3-8.2) g/dL Albumin (3.5-5.0) g/dL Procalcitonin (0.02-0.09) ng/mL Crossmatch Microbiology - Last 24 Hours (Table) 08/15/21 19:08 Blood Culture - Preliminary Blood No Growth after 24 hours 08/15/21 19:10 Blood Culture - Preliminary Blood No Growth after 24 hours Assessment and Plan (1) Sepsis due to pneumonia Current Visit: Yes Status: Acute Code(s): J18.9 - PNEUMONIA, UNSPECIFIED ORGANISM; A41.9 - SEPSIS, UNSPECIFIED ORGANISM SNOMED Code(s): 62514570 Plan: 1patient presented to hospital with fever in this patient also have a left lower rib cage pain which is pleuritic concerning for possible pneumonia and question of possible aspiration etiology recently completed course of oral Augmentin. 2we will try to obtain a sputum for Gram stain and culture to narrow down antibiotics 3continue withZosyn 3.375 g every 12 hours Time with Patient: Less than 30
[2021-08-18 00:33] LABS: Glucose,Whole Blood 563 mg/dL (75-99)
[2021-08-18 00:49] LABS: Appearance,Urine Cloudy (Clear); Bacteria,Urine Rare /hpf; Bilirubin,Urine Negative (Negative); Blood,Urine Small (Negative); Color,Urine Yellow; Glucose,Urine (UA) 4+ (Negative); Ketones,Urine 1+ (Negative); Leukocyte Esterase,Urine Trace (Negative); Nitrite,Urine Negative (Negative); Protein,Urine 3+ (Negative); RBC,Urine 1 /hpf (0-5); Squamous Epithelial Cell,Urine 66 /hpf (0-4); Urobilinogen,Urine <2.0 mg/dL (<2.0); WBC,Urine 43 /hpf (0-5)
[2021-08-18 02:45] LABS: Glucose,Whole Blood 317 mg/dL (75-99)
[2021-08-18] MEDS: SODIUM CHLORIDE 0.9% 1,000 ML IV SCH (04:33)
[2021-08-18 04:43] LABS: Glucose,Whole Blood 84 mg/dL (75-99)
[2021-08-18] MEDS: HYDROmorphone 1 MG/ML 1 ML SYRINGE IVP PRN ×3 (04:52→20:23)
[2021-08-18] MEDS ORDERED: DEXTROSE 50% SYRINGE 50 ML IVP ONE (06:38)
[2021-08-18 06:39] LABS: Glucose,Whole Blood 21 mg/dL (75-99)
[2021-08-18] MEDS: ACETAMINOPHEN TAB 325 MG TAB PO PRN (06:44)
[2021-08-18 06:59] LABS: Glucose,Whole Blood 335 mg/dL (75-99)
[2021-08-18] MEDS ORDERED: INSULIN DETEMIR (LEVEMIR) 100 UNIT/ML SYR SQ SCH (07:00)
[2021-08-18 07:01] LABS: Glucose,Whole Blood 323 mg/dL (75-99)
[2021-08-18] MEDS ORDERED: INSULIN ASPART (NovoLOG) 100 UNIT/ML VIAL SQ SCH (07:30)
[2021-08-18 08:53] LABS: Glucose,Whole Blood 285 mg/dL (75-99)
[2021-08-18 09:36] LABS: Basophils # (A) 0.03 X 10*3/uL (0.00-0.10); Eosinophils # (A) 0.05 X 10*3/uL (0.04-0.35); Eosinophils % (A) 1.7 %; HGB 7.6 g/dL (12.0-15.0); Immature Grans, Automated 0.3 %; Lymphocytes # (A) 0.47 X 10*3/uL (0.90-5.00); Lymphocytes % (A) 15.5 %; MCH 29.1 pg (27.0-32.0); MCV 88.1 fL (80.0-97.0); Mean Platelet Volume 11.8 fL (9.5-12.2); Monocytes # (A) 0.37 X 10*3/uL (0.20-1.00); Monocytes % (A) 12.2 %; NRBC Per 100 WBC 0 /100 WBCS (0.0-0.0); Neutrophils % (A) 69.3 %; Platelet Count 212 X 10*3/uL (140-440); RBC 2.61 X 10*6/uL (4.10-5.20); RDW 13.8 % (11.5-14.5); WBC 3.03 X 10*3/uL (4.50-10.00)
[2021-08-18] MEDS: HEPARIN SODIUM,PORCINE/PF 5,000 UNIT/0.5 ML SYRINGE SQ SCH ×3 (09:39→20:25)
[2021-08-18] MEDS: ESCITALOPRAM 20 MG TAB PO SCH (09:39)
[2021-08-18] MEDS: ASPIRIN 81 MG PO SCH (09:39)
[2021-08-18] MEDS: PANTOPRAZOLE 40 MG TABLET PO SCH ×2 (09:39→20:26)
[2021-08-18] MEDS: carvediloL 12.5 MG TAB PO SCH ×2 (09:39→16:52)
[2021-08-18] MEDS: SEVELAMER 800 MG TAB PO SCH ×3 (09:40→16:52)
[2021-08-18] MEDS: minoxidiL 2.5 MG TAB PO SCH ×2 (09:40→20:26)
[2021-08-18] MEDS: PIPERACILLIN-TAZOBACTAM 3.375 GM in SODIUM CHLORIDE 0.9% 100 ML IVPB SCH ×2 (09:40→22:15)
[2021-08-18] MEDS: cloNIDine HCL 0.1 MG TAB PO SCH ×3 (09:42→20:26)
[2021-08-18 09:49] LABS: African American GFR (CKD) 12.2 (60.0-200.0); Anion Gap 15.8 mmol/L (10.00-18.00); BUN/Creat Ratio 6.13 Ratio (12.00-20.00); Blood Urea Nitrogen 31.1 mg/dL (9.0-27.0); Calcium 8.4 mg/dL (8.7-10.3); Carbon Dioxide 20.1 mmol/L (20.0-27.5); Non-African American GFR(CKD) 10.5 (60.0-200.0); Potassium 4.3 mmol/L (3.5-5.5)
[2021-08-18] MEDS: INSULIN DETEMIR (LEVEMIR) 100 UNIT/ML SYR SQ SCH (10:21)
[2021-08-18] MEDS ORDERED: diphenhydrAMINE 50 MG/ML 1 ML VIAL IVP STA (10:34)
[2021-08-18 10:54] LABS: Glucose,Whole Blood 301 mg/dL (75-99)
[2021-08-18] MEDS: INSULIN ASPART (NovoLOG) 100 UNIT/ML VIAL SQ SCH ×3 (11:48→20:25)
--- NOTE | 2021-08-18 12:07 | P.PN ---
Subjective Patient is seen for follow-up for end-stage renal disease. She had 3.0 L of ultrafiltration yesterday. Blood pressure is improved Cough persists. Discomfort on taking in deep breaths No other complaints today patient is seen on hemodialysis today Objective - Vital Signs Vital signs: Vital Signs Temp 97.5 F L 08/18/21 08:00 Pulse 66 08/18/21 09:52 Resp 16 08/18/21 09:52 BP 143/78 08/18/21 08:00 Pulse Ox 100 08/18/21 08:00 Intake & Output 08/17/21 08/18/21 08/18/21 18:59 06:59 18:59 Intake Total 310 414.167 Output Total 3000 Balance -2690 414.167 Intake: Intake, IV Titration 54.167 Amount Insulin Regular 100 unit 54.167 In Sodium Chloride 0.9% 100 ml @ Titrate IV .Q0M [facility] Rx#:[id number] Oral 360 Blood Product 310 Rc As-1 Unit 310 [id number] Output: Hemodialysis 3000 Other: # Voids 1 - Exam Awake, comfortable, not in any acute distress Examination of the heart S1 and S2 Examination lungs bilateral breath sounds are heard Abdomen is soft Examination lower extremities shows no significant edema [employer] exam grossly intact - Labs CBC & Chem 7: 08/18/21 06:33 08/18/21 06:33 Labs: Abnormal Lab Results - Last 24 Hours (Table) 08/17/21 08/17/21 08/17/21 Range/Units 11:15 12:03 13:48 WBC (3.8-10.6) k/uL RBC (3.80-5.40) m/uL Hgb (11.4-16.0) gm/dL Hct (34.0-46.0) % Lymphocytes # (1.0-4.8) k/uL Sodium (137-145) mmol/L Potassium (3.5-5.1) mmol/L Chloride (96-109) mmol/L BUN (7-17) mg/dL Creatinine (0.52-1.04) mg/dL Est GFR (CKD-EPI)AfAm (60.0-200.0) Est GFR (CKD-EPI)NonAf (60.0-200.0) BUN/Creatinine Ratio (12.00-20.00) Ratio Glucose (74-99) mg/dL POC Glucose (mg/dL) 210 H 150 H (75-99) mg/dL Hemoglobin A1c (0.0-6.0) % Calcium (8.7-10.3) mg/dL Urine Appearance (Clear) Urine Protein (Negative) Urine Glucose (UA) (Negative) Urine Ketones (Negative) Urine Blood (Negative) Ur Leukocyte Esterase (Negative) Urine WBC (0-5) /hpf Ur Squamous Epith Cells (0-4) /hpf Urine Bacteria (None) /hpf Crossmatch See Detail 08/17/21 08/17/21 08/17/21 Range/Units 14:37 15:06 21:16 WBC 3.2 L (3.8-10.6) k/uL RBC 2.81 L (3.80-5.40) m/uL Hgb 8.4 L (11.4-16.0) gm/dL Hct 25.2 L (34.0-46.0) % Lymphocytes # 0.5 L (1.0-4.8) k/uL Sodium 135 L (137-145) mmol/L Potassium 3.3 L (3.5-5.1) mmol/L Chloride (96-109) mmol/L BUN 18 H (7-17) mg/dL Creatinine 2.84 H (0.52-1.04) mg/dL Est GFR (CKD-EPI)AfAm (60.0-200.0) Est GFR (CKD-EPI)NonAf (60.0-200.0) BUN/Creatinine Ratio (12.00-20.00) Ratio Glucose 104 H (74-99) mg/dL POC Glucose (mg/dL) 598 H (75-99) mg/dL Hemoglobin A1c (0.0-6.0) % Calcium (8.7-10.3) mg/dL Urine Appearance (Clear) Urine Protein (Negative) Urine Glucose (UA) (Negative) Urine Ketones (Negative) Urine Blood (Negative) Ur Leukocyte Esterase (Negative) Urine WBC (0-5) /hpf Ur Squamous Epith Cells (0-4) /hpf Urine Bacteria (None) /hpf Crossmatch 08/17/21 08/17/21 08/18/21 Range/Units 22:34 22:35 00:32 WBC (3.8-10.6) k/uL RBC (3.80-5.40) m/uL Hgb (11.4-16.0) gm/dL Hct (34.0-46.0) % Lymphocytes # (1.0-4.8) k/uL Sodium (137-145) mmol/L Potassium (3.5-5.1) mmol/L Chloride (96-109) mmol/L BUN (7-17) mg/dL Creatinine (0.52-1.04) mg/dL Est GFR (CKD-EPI)AfAm (60.0-200.0) Est GFR (CKD-EPI)NonAf (60.0-200.0) BUN/Creatinine Ratio (12.00-20.00) Ratio Glucose (74-99) mg/dL POC Glucose (mg/dL) >600 H >600 H 563 H (75-99) mg/dL Hemoglobin A1c (0.0-6.0) % Calcium (8.7-10.3) mg/dL Urine Appearance (Clear) Urine Protein (Negative) Urine Glucose (UA) (Negative) Urine Ketones (Negative) Urine Blood (Negative) Ur Leukocyte Esterase (Negative) Urine WBC (0-5) /hpf Ur Squamous Epith Cells (0-4) /hpf Urine Bacteria (None) /hpf Crossmatch 08/18/21 08/18/21 08/18/21 Range/Units 00:41 02:43 06:33 WBC 3.03 L (3.8-10.6) k/uL RBC 2.61 L (3.80-5.40) m/uL Hgb 7.6 L (11.4-16.0) gm/dL Hct 23.0 L (34.0-46.0) % Lymphocytes # 0.47 L (1.0-4.8) k/uL Sodium (137-145) mmol/L Potassium (3.5-5.1) mmol/L Chloride (96-109) mmol/L BUN (7-17) mg/dL Creatinine (0.52-1.04) mg/dL Est GFR (CKD-EPI)AfAm (60.0-200.0) Est GFR (CKD-EPI)NonAf (60.0-200.0) BUN/Creatinine Ratio (12.00-20.00) Ratio Glucose (74-99) mg/dL POC Glucose (mg/dL) 317 H (75-99) mg/dL Hemoglobin A1c (0.0-6.0) % Calcium (8.7-10.3) mg/dL Urine Appearance Cloudy H (Clear) Urine Protein 3+ H (Negative) Urine Glucose (UA) 4+ H (Negative) Urine Ketones 1+ H (Negative) Urine Blood Small H (Negative) Ur Leukocyte Esterase Trace H (Negative) Urine WBC 43 H (0-5) /hpf Ur Squamous Epith Cells 66 H (0-4) /hpf Urine Bacteria Rare H (None) /hpf Crossmatch 08/18/21 08/18/21 08/18/21 Range/Units 06:33 06:33 06:37 WBC (3.8-10.6) k/uL RBC (3.80-5.40) m/uL Hgb (11.4-16.0) gm/dL Hct (34.0-46.0) % Lymphocytes # (1.0-4.8) k/uL Sodium 129 L (137-145) mmol/L Potassium (3.5-5.1) mmol/L Chloride 93 L (96-109) mmol/L BUN 31.1 H (7-17) mg/dL Creatinine 5.1 H (0.52-1.04) mg/dL Est GFR (CKD-EPI)AfAm 12.2 L (60.0-200.0) Est GFR (CKD-EPI)NonAf 10.5 L (60.0-200.0) BUN/Creatinine Ratio 6.13 L (12.00-20.00) Ratio Glucose 438 H (74-99) mg/dL POC Glucose (mg/dL) 21 L (75-99) mg/dL Hemoglobin A1c 7.7 H (0.0-6.0) % Calcium 8.4 L (8.7-10.3) mg/dL Urine Appearance (Clear) Urine Protein (Negative) Urine Glucose (UA) (Negative) Urine Ketones (Negative) Urine Blood (Negative) Ur Leukocyte Esterase (Negative) Urine WBC (0-5) /hpf Ur Squamous Epith Cells (0-4) /hpf Urine Bacteria (None) /hpf Crossmatch 08/18/21 08/18/21 08/18/21 Range/Units 06:56 06:59 08:51 WBC (3.8-10.6) k/uL RBC (3.80-5.40) m/uL Hgb (11.4-16.0) gm/dL Hct (34.0-46.0) % Lymphocytes # (1.0-4.8) k/uL Sodium (137-145) mmol/L Potassium (3.5-5.1) mmol/L Chloride (96-109) mmol/L BUN (7-17) mg/dL Creatinine (0.52-1.04) mg/dL Est GFR (CKD-EPI)AfAm (60.0-200.0) Est GFR (CKD-EPI)NonAf (60.0-200.0) BUN/Creatinine Ratio (12.00-20.00) Ratio Glucose (74-99) mg/dL POC Glucose (mg/dL) 335 H 323 H 285 H (75-99) mg/dL Hemoglobin A1c (0.0-6.0) % Calcium (8.7-10.3) mg/dL Urine Appearance (Clear) Urine Protein (Negative) Urine Glucose (UA) (Negative) Urine Ketones (Negative) Urine Blood (Negative) Ur Leukocyte Esterase (Negative) Urine WBC (0-5) /hpf Ur Squamous Epith Cells (0-4) /hpf Urine Bacteria (None) /hpf Crossmatch 08/18/21 Range/Units 10:53 WBC (3.8-10.6) k/uL RBC (3.80-5.40) m/uL Hgb (11.4-16.0) gm/dL Hct (34.0-46.0) % Lymphocytes # (1.0-4.8) k/uL Sodium (137-145) mmol/L Potassium (3.5-5.1) mmol/L Chloride (96-109) mmol/L BUN (7-17) mg/dL Creatinine (0.52-1.04) mg/dL Est GFR (CKD-EPI)AfAm (60.0-200.0) Est GFR (CKD-EPI)NonAf (60.0-200.0) BUN/Creatinine Ratio (12.00-20.00) Ratio Glucose (74-99) mg/dL POC Glucose (mg/dL) 301 H (75-99) mg/dL Hemoglobin A1c (0.0-6.0) % Calcium (8.7-10.3) mg/dL Urine Appearance (Clear) Urine Protein (Negative) Urine Glucose (UA) (Negative) Urine Ketones (Negative) Urine Blood (Negative) Ur Leukocyte Esterase (Negative) Urine WBC (0-5) /hpf Ur Squamous Epith Cells (0-4) /hpf Urine Bacteria (None) /hpf Crossmatch Microbiology - Last 24 Hours (Table) 08/15/21 19:08 Blood Culture - Preliminary Blood No Growth after 48 hours 08/15/21 19:10 Blood Culture - Preliminary Blood No Growth after 48 hours Assessment and Plan Assessment: 1. End-stage renal disease on hemodialysis on a Monday schedule 2. Fluid overload 3. Fever rule out pneumonia 4. Recent hospitalization for fluid overload with large pericardial effusion status post aggressive ultrafiltration of about 12 L during her stay 5. Hypertension partly volume sensitive improves with aggressive ultrafiltration. Continue current medications Plan: Repeat hemodialysis today. Continue current antihypertensive treatment. Continue antibiotics
[2021-08-18] MEDS: BENZONATATE 100 MG CAP PO PRN ×2 (13:25→20:25)
--- NOTE | 2021-08-18 15:01 | P.PN ---
Subjective Progress Note Date: 08/18/21 30-year-old female came in with complaints of bilateral rib cage pain, fevers which started on Monday. Patient had an abdominal CT which showed a pneumonic infiltrate in the right lung along with some parapneumonic effusion. Patient was started on broad-spectrum antibiotics vancomycin and cefepime treating for healthcare associated pneumonia patient was recently hospitalized for couple weeks ago at that time patient was treated for intra-abdominal infection at that time. Patient has history of end-stage renal disease hemodialysis dependent. Patient has mild leukocytosis with a white blood cell count of 10 patient does have history of type 1 diabetes mellitus and diabetic nephropathy which led to hemodialysis dependence. 08/17/2021 Patient evaluated today resting in bed during hemodialysis. No acute complaints over night. Continues with dry non productive cough. States ribs are sore from coughing. Denies fever, chills, dysuria, abdominal pain. Has been having loose stools since being started on antibiotics. Blood cultures negative so far. Labs today show WBC 3.2, hgb today 6.2, repeat 8.4 s/p 1 unit PRBC which patient received during hemodialysis. Sodium repeat 135, potassium 3.3, BUN 18, creatinine 2.84, blood glucose elevated today in the 500s. Patient has not been getting levemir since admission as blood sugar was in the 20s at that time. Improved to 80s today with levemir. Continues on IV antibiotics, followed closely by infectious disease. Urine culture pending. 08/18/2021 Patient evaluated today resting in bed during hemodialysis. Patient continues with dry nonproductive cough states that her ribs are sore. Patient underwent hemodialysis today. Labs today show sodium 129, chloride 93. Creatinine 5.1. A1C 7.7, hgb 7.6. BP 129/76, Temp, heart rate 81, 100% 3L. States cough not improved with lozenges or tessalon. Added albuterol as well as she complains of mild sh ortness of breath as well. Blood sugar eleveted 500-600 last night, pt was started on insulin gtt and sugar dropped into the 20s. Today she is back in the 200-300s and we took her off the gtt and started her on low dose levemir. She plans to see endocrinology outpatient. REVIEW OF SYSTEMS: CONSTITUTIONAL: no malaise, no fatigue. HEENT: No recent visual problems or hearing problems. Denied any sore throat. CARDIOVASCULAR: No orthopnea, PND, no palpitations, no syncope. PULMONARY: Reports shortness of breath, no cough, no hemoptysis. GASTROINTESTINAL: No diarrhea, no nausea, no vomiting, no abdominal pain. All medications reviewed. PHYSICAL EXAMINATION: GENERAL: The patient is alert and oriented x3, not in any acute distress. Well developed, well nourished. HEENT: Pupils are round and equally reacting to light. EOMI. No scleral icterus. No conjunctival pallor. Normocephalic, atraumatic. No pharyngeal erythema. No thyromegaly. CARDIOVASCULAR: S1 and S2 present. No murmurs, rubs, or gallops. PULMONARY: Chest is clear to auscultation, no wheezing or crackles. ABDOMEN: Soft, nontender, nondistended, normoactive bowel sounds. No palpable organomegaly. MUSCULOSKELETAL: No joint swelling or deformity. EXTREMITIES: No cyanosis, clubbing, or pedal edema. NEUROLOGICAL: Gross neurological examination did not reveal any focal deficits. SKIN: No rashes. Assessment and plan -Sepsis: Secondary to bacterial pneumonia most probably. Patient will be continued on IV antibiotics and infectious disease consulted, procalcitonin level 25.80 -End-stage renal disease or dialysis dependent for which the nephrology is on consult, on dialysis monday, patient had dialysis again today -Hyponatremia secondary to chronic kidney disease -Type 1 diabetes mellitus, uncontrolled with hyperglycemia, resume home medications and monitor closely may need insulin gtt if insulin remains elevated which was discussed with patient today -Pleuritic chest pain and a parapneumonic effusion -Hypertension secondary to renal disease continue her home medications. -Depression DVT prophylaxis: subcutaneous heparin GI prophylaxis Full Code The impression and plan of care has been dictated by Jael Keane Nurse Practitioner as directed. Dr. Sudeep MD I have performed a history and physical examination and medical decision making of this patient, discussed the same with the dictator, and agree with the dictators assessment and plan as written, documented as a scribe. Based on total visit time, I have performed more than 50% of this visit. Objective - Vital Signs Vital signs: Vital Signs Temp 97.5 F L 08/18/21 08:00 Pulse 66 08/18/21 09:52 Resp 16 08/18/21 09:52 BP 143/78 08/18/21 08:00 Pulse Ox 100 08/18/21 08:00 Intake & Output 08/17/21 08/18/21 08/18/21 18:59 06:59 18:59 Intake Total 310 414.167 Output Total 3000 Balance -2690 414.167 Intake: Intake, IV Titration 54.167 Amount Insulin Regular 100 unit 54.167 In Sodium Chloride 0.9% 100 ml @ Titrate IV .Q0M [facility] Rx#:[id number] Oral 360 Blood Product 310 Rc As-1 Unit 310 [id number] Output: Hemodialysis 3000 Other: # Voids 1 - Labs CBC & Chem 7: 08/18/21 06:33 08/18/21 06:33 Labs: Abnormal Lab Results - Last 24 Hours (Table) 08/17/21 08/17/21 08/17/21 Range/Units 11:15 13:48 14:37 WBC (3.8-10.6) k/uL RBC (3.80-5.40) m/uL Hgb (11.4-16.0) gm/dL Hct (34.0-46.0) % Lymphocytes # (1.0-4.8) k/uL Sodium 135 L (137-145) mmol/L Potassium 3.3 L (3.5-5.1) mmol/L Chloride (96-109) mmol/L BUN 18 H (7-17) mg/dL Creatinine 2.84 H (0.52-1.04) mg/dL Est GFR (CKD-EPI)AfAm (60.0-200.0) Est GFR (CKD-EPI)NonAf (60.0-200.0) BUN/Creatinine Ratio (12.00-20.00) Ratio Glucose 104 H (74-99) mg/dL POC Glucose (mg/dL) 150 H (75-99) mg/dL Hemoglobin A1c (0.0-6.0) % Calcium (8.7-10.3) mg/dL Urine Appearance (Clear) Urine Protein (Negative) Urine Glucose (UA) (Negative) Urine Ketones (Negative) Urine Blood (Negative) Ur Leukocyte Esterase (Negative) Urine WBC (0-5) /hpf Ur Squamous Epith Cells (0-4) /hpf Urine Bacteria (None) /hpf Crossmatch See Detail 08/17/21 08/17/21 08/17/21 Range/Units 15:06 21:16 22:34 WBC 3.2 L (3.8-10.6) k/uL RBC 2.81 L (3.80-5.40) m/uL Hgb 8.4 L (11.4-16.0) gm/dL Hct 25.2 L (34.0-46.0) % Lymphocytes # 0.5 L (1.0-4.8) k/uL Sodium (137-145) mmol/L Potassium (3.5-5.1) mmol/L Chloride (96-109) mmol/L BUN (7-17) mg/dL Creatinine (0.52-1.04) mg/dL Est GFR (CKD-EPI)AfAm (60.0-200.0) Est GFR (CKD-EPI)NonAf (60.0-200.0) BUN/Creatinine Ratio (12.00-20.00) Ratio Glucose (74-99) mg/dL POC Glucose (mg/dL) 598 H >600 H (75-99) mg/dL Hemoglobin A1c (0.0-6.0) % Calcium (8.7-10.3) mg/dL Urine Appearance (Clear) Urine Protein (Negative) Urine Glucose (UA) (Negative) Urine Ketones (Negative) Urine Blood (Negative) Ur Leukocyte Esterase (Negative) Urine WBC (0-5) /hpf Ur Squamous Epith Cells (0-4) /hpf Urine Bacteria (None) /hpf Crossmatch 08/17/21 08/18/21 08/18/21 Range/Units 22:35 00:32 00:41 WBC (3.8-10.6) k/uL RBC (3.80-5.40) m/uL Hgb (11.4-16.0) gm/dL Hct (34.0-46.0) % Lymphocytes # (1.0-4.8) k/uL Sodium (137-145) mmol/L Potassium (3.5-5.1) mmol/L Chloride (96-109) mmol/L BUN (7-17) mg/dL Creatinine (0.52-1.04) mg/dL Est GFR (CKD-EPI)AfAm (60.0-200.0) Est GFR (CKD-EPI)NonAf (60.0-200.0) BUN/Creatinine Ratio (12.00-20.00) Ratio Glucose (74-99) mg/dL POC Glucose (mg/dL) >600 H 563 H (75-99) mg/dL Hemoglobin A1c (0.0-6.0) % Calcium (8.7-10.3) mg/dL Urine Appearance Cloudy H (Clear) Urine Protein 3+ H (Negative) Urine Glucose (UA) 4+ H (Negative) Urine Ketones 1+ H (Negative) Urine Blood Small H (Negative) Ur Leukocyte Esterase Trace H (Negative) Urine WBC 43 H (0-5) /hpf Ur Squamous Epith Cells 66 H (0-4) /hpf Urine Bacteria Rare H (None) /hpf Crossmatch 08/18/21 08/18/21 08/18/21 Range/Units 02:43 06:33 06:33 WBC 3.03 L (3.8-10.6) k/uL RBC 2.61 L (3.80-5.40) m/uL Hgb 7.6 L (11.4-16.0) gm/dL Hct 23.0 L (34.0-46.0) % Lymphocytes # 0.47 L (1.0-4.8) k/uL Sodium 129 L (137-145) mmol/L Potassium (3.5-5.1) mmol/L Chloride 93 L (96-109) mmol/L BUN 31.1 H (7-17) mg/dL Creatinine 5.1 H (0.52-1.04) mg/dL Est GFR (CKD-EPI)AfAm 12.2 L (60.0-200.0) Est GFR (CKD-EPI)NonAf 10.5 L (60.0-200.0) BUN/Creatinine Ratio 6.13 L (12.00-20.00) Ratio Glucose 438 H (74-99) mg/dL POC Glucose (mg/dL) 317 H (75-99) mg/dL Hemoglobin A1c (0.0-6.0) % Calcium 8.4 L (8.7-10.3) mg/dL Urine Appearance (Clear) Urine Protein (Negative) Urine Glucose (UA) (Negative) Urine Ketones (Negative) Urine Blood (Negative) Ur Leukocyte Esterase (Negative) Urine WBC (0-5) /hpf Ur Squamous Epith Cells (0-4) /hpf Urine Bacteria (None) /hpf Crossmatch 08/18/21 08/18/21 08/18/21 Range/Units 06:33 06:37 06:56 WBC (3.8-10.6) k/uL RBC (3.80-5.40) m/uL Hgb (11.4-16.0) gm/dL Hct (34.0-46.0) % Lymphocytes # (1.0-4.8) k/uL Sodium (137-145) mmol/L Potassium (3.5-5.1) mmol/L Chloride (96-109) mmol/L BUN (7-17) mg/dL Creatinine (0.52-1.04) mg/dL Est GFR (CKD-EPI)AfAm (60.0-200.0) Est GFR (CKD-EPI)NonAf (60.0-200.0) BUN/Creatinine Ratio (12.00-20.00) Ratio Glucose (74-99) mg/dL POC Glucose (mg/dL) 21 L 335 H (75-99) mg/dL Hemoglobin A1c 7.7 H (0.0-6.0) % Calcium (8.7-10.3) mg/dL Urine Appearance (Clear) Urine Protein (Negative) Urine Glucose (UA) (Negative) Urine Ketones (Negative) Urine Blood (Negative) Ur Leukocyte Esterase (Negative) Urine WBC (0-5) /hpf Ur Squamous Epith Cells (0-4) /hpf Urine Bacteria (None) /hpf Crossmatch 08/18/21 08/18/21 08/18/21 Range/Units 06:59 08:51 10:53 WBC (3.8-10.6) k/uL RBC (3.80-5.40) m/uL Hgb (11.4-16.0) gm/dL Hct (34.0-46.0) % Lymphocytes # (1.0-4.8) k/uL Sodium (137-145) mmol/L Potassium (3.5-5.1) mmol/L Chloride (96-109) mmol/L BUN (7-17) mg/dL Creatinine (0.52-1.04) mg/dL Est GFR (CKD-EPI)AfAm (60.0-200.0) Est GFR (CKD-EPI)NonAf (60.0-200.0) BUN/Creatinine Ratio (12.00-20.00) Ratio Glucose (74-99) mg/dL POC Glucose (mg/dL) 323 H 285 H 301 H (75-99) mg/dL Hemoglobin A1c (0.0-6.0) % Calcium (8.7-10.3) mg/dL Urine Appearance (Clear) Urine Protein (Negative) Urine Glucose (UA) (Negative) Urine Ketones (Negative) Urine Blood (Negative) Ur Leukocyte Esterase (Negative) Urine WBC (0-5) /hpf Ur Squamous Epith Cells (0-4) /hpf Urine Bacteria (None) /hpf Crossmatch Microbiology - Last 24 Hours (Table) 08/15/21 19:08 Blood Culture - Preliminary Blood No Growth after 48 hours 08/15/21 19:10 Blood Culture - Preliminary Blood No Growth after 48 hours Assessment and Plan Time with Patient: Less than 30
[2021-08-18 16:39] LABS: Glucose,Whole Blood 58 mg/dL (75-99)
[2021-08-18 16:42] LABS: Glucose,Whole Blood 56 mg/dL (75-99)
[2021-08-18 16:59] LABS: Glucose,Whole Blood 58 mg/dL (75-99)
[2021-08-18 17:49] LABS: Glucose,Whole Blood 124 mg/dL (75-99)
[2021-08-18 20:12] LABS: Glucose,Whole Blood 209 mg/dL (75-99)
[2021-08-18] MEDS: MELATONIN 5 MG TABLET PO PRN (20:25)
[2021-08-18] MEDS: ISOSORBIDE MONONITRATE ER 30 MG TAB.ER.24H PO SCH (20:26)
--- NOTE | 2021-08-18 21:59 | P.PN ---
Subjective Progress Note Date: 08/18/21 Principal diagnosis: Pneumonia Patient is a 30-year-old female with a past medical history significant for end-stage renal disease on dialysis presented to the hospital w ith a fever of left lower chest pain concerning for pneumonia. On today's evaluation that is 08/18/2021, the patient did spike a fever of 102F last night is afebrile this morning, the patient is still complaining of lower rib cage chest pain however decreased intensity is having a cough but not colby nging up any sputum and no vomiting no abdominal pain and no diarrhea Objective - Vital Signs Vital signs: Vital Signs Temp 97.5 F L 08/18/21 08:00 Pulse 66 08/18/21 09:52 Resp 16 08/18/21 09:52 BP 143/78 08/18/21 08:00 Pulse Ox 100 08/18/21 08:00 Intake & Output 08/17/21 08/18/21 08/18/21 18:59 06:59 18:59 Intake Total 310 414.167 Output Total 3000 Balance -2690 414.167 Intake: Intake, IV Titration 54.167 Amount Insulin Regular 100 unit 54.167 In Sodium Chloride 0.9% 100 ml @ Titrate IV .Q0M [facility] Rx#:[id number] Oral 360 Blood Product 310 Rc As-1 Unit 310 [id number] Output: Hemodialysis 3000 Other: # Voids 1 - Exam GENERAL DESCRIPTION: Middle-age female lying in bed in no distress RESPIRATORY SYSTEM: Unlabored breathing , decreased breath sounds at bases HEART: S1 S2 regular rate and rhythm , ABDOMEN: Soft , no tenderness EXTREMITIES: No edema feet - Labs CBC & Chem 7: 08/18/21 06:33 08/18/21 06:33 Labs: Abnormal Lab Results - Last 24 Hours (Table) 08/17/21 08/17/21 08/17/21 Range/Units 11:15 13:48 14:37 WBC (3.8-10.6) k/uL RBC (3.80-5.40) m/uL Hgb (11.4-16.0) gm/dL Hct (34.0-46.0) % Lymphocytes # (1.0-4.8) k/uL Sodium 135 L (137-145) mmol/L Potassium 3.3 L (3.5-5.1) mmol/L Chloride (96-109) mmol/L BUN 18 H (7-17) mg/dL Creatinine 2.84 H (0.52-1.04) mg/dL Est GFR (CKD-EPI)AfAm (60.0-200.0) Est GFR (CKD-EPI)NonAf (60.0-200.0) BUN/Creatinine Ratio (12.00-20.00) Ratio Glucose 104 H (74-99) mg/dL POC Glucose (mg/dL) 150 H (75-99) mg/dL Hemoglobin A1c (0.0-6.0) % Calcium (8.7-10.3) mg/dL Urine Appearance (Clear) Urine Protein (Negative) Urine Glucose (UA) (Negative) Urine Ketones (Negative) Urine Blood (Negative) Ur Leukocyte Esterase (Negative) Urine WBC (0-5) /hpf Ur Squamous Epith Cells (0-4) /hpf Urine Bacteria (None) /hpf Crossmatch See Detail 08/17/21 08/17/21 08/17/21 Range/Units 15:06 21:16 22:34 WBC 3.2 L (3.8-10.6) k/uL RBC 2.81 L (3.80-5.40) m/uL Hgb 8.4 L (11.4-16.0) gm/dL Hct 25.2 L (34.0-46.0) % Lymphocytes # 0.5 L (1.0-4.8) k/uL Sodium (137-145) mmol/L Potassium (3.5-5.1) mmol/L Chloride (96-109) mmol/L BUN (7-17) mg/dL Creatinine (0.52-1.04) mg/dL Est GFR (CKD-EPI)AfAm (60.0-200.0) Est GFR (CKD-EPI)NonAf (60.0-200.0) BUN/Creatinine Ratio (12.00-20.00) Ratio Glucose (74-99) mg/dL POC Glucose (mg/dL) 598 H >600 H (75-99) mg/dL Hemoglobin A1c (0.0-6.0) % Calcium (8.7-10.3) mg/dL Urine Appearance (Clear) Urine Protein (Negative) Urine Glucose (UA) (Negative) Urine Ketones (Negative) Urine Blood (Negative) Ur Leukocyte Esterase (Negative) Urine WBC (0-5) /hpf Ur Squamous Epith Cells (0-4) /hpf Urine Bacteria (None) /hpf Crossmatch 08/17/21 08/18/21 08/18/21 Range/Units 22:35 00:32 00:41 WBC (3.8-10.6) k/uL RBC (3.80-5.40) m/uL Hgb (11.4-16.0) gm/dL Hct (34.0-46.0) % Lymphocytes # (1.0-4.8) k/uL Sodium (137-145) mmol/L Potassium (3.5-5.1) mmol/L Chloride (96-109) mmol/L BUN (7-17) mg/dL Creatinine (0.52-1.04) mg/dL Est GFR (CKD-EPI)AfAm (60.0-200.0) Est GFR (CKD-EPI)NonAf (60.0-200.0) BUN/Creatinine Ratio (12.00-20.00) Ratio Glucose (74-99) mg/dL POC Glucose (mg/dL) >600 H 563 H (75-99) mg/dL Hemoglobin A1c (0.0-6.0) % Calcium (8.7-10.3) mg/dL Urine Appearance Cloudy H (Clear) Urine Protein 3+ H (Negative) Urine Glucose (UA) 4+ H (Negative) Urine Ketones 1+ H (Negative) Urine Blood Small H (Negative) Ur Leukocyte Esterase Trace H (Negative) Urine WBC 43 H (0-5) /hpf Ur Squamous Epith Cells 66 H (0-4) /hpf Urine Bacteria Rare H (None) /hpf Crossmatch 08/18/21 08/18/21 08/18/21 Range/Units 02:43 06:33 06:33 WBC 3.03 L (3.8-10.6) k/uL RBC 2.61 L (3.80-5.40) m/uL Hgb 7.6 L (11.4-16.0) gm/dL Hct 23.0 L (34.0-46.0) % Lymphocytes # 0.47 L (1.0-4.8) k/uL Sodium 129 L (137-145) mmol/L Potassium (3.5-5.1) mmol/L Chloride 93 L (96-109) mmol/L BUN 31.1 H (7-17) mg/dL Creatinine 5.1 H (0.52-1.04) mg/dL Est GFR (CKD-EPI)AfAm 12.2 L (60.0-200.0) Est GFR (CKD-EPI)NonAf 10.5 L (60.0-200.0) BUN/Creatinine Ratio 6.13 L (12.00-20.00) Ratio Glucose 438 H (74-99) mg/dL POC Glucose (mg/dL) 317 H (75-99) mg/dL Hemoglobin A1c (0.0-6.0) % Calcium 8.4 L (8.7-10.3) mg/dL Urine Appearance (Clear) Urine Protein (Negative) Urine Glucose (UA) (Negative) Urine Ketones (Negative) Urine Blood (Negative) Ur Leukocyte Esterase (Negative) Urine WBC (0-5) /hpf Ur Squamous Epith Cells (0-4) /hpf Urine Bacteria (None) /hpf Crossmatch 08/18/21 08/18/21 08/18/21 Range/Units 06:33 06:37 06:56 WBC (3.8-10.6) k/uL RBC (3.80-5.40) m/uL Hgb (11.4-16.0) gm/dL Hct (34.0-46.0) % Lymphocytes # (1.0-4.8) k/uL Sodium (137-145) mmol/L Potassium (3.5-5.1) mmol/L Chloride (96-109) mmol/L BUN (7-17) mg/dL Creatinine (0.52-1.04) mg/dL Est GFR (CKD-EPI)AfAm (60.0-200.0) Est GFR (CKD-EPI)NonAf (60.0-200.0) BUN/Creatinine Ratio (12.00-20.00) Ratio Glucose (74-99) mg/dL POC Glucose (mg/dL) 21 L 335 H (75-99) mg/dL Hemoglobin A1c 7.7 H (0.0-6.0) % Calcium (8.7-10.3) mg/dL Urine Appearance (Clear) Urine Protein (Negative) Urine Glucose (UA) (Negative) Urine Ketones (Negative) Urine Blood (Negative) Ur Leukocyte Esterase (Negative) Urine WBC (0-5) /hpf Ur Squamous Epith Cells (0-4) /hpf Urine Bacteria (None) /hpf Crossmatch 08/18/21 08/18/21 08/18/21 Range/Units 06:59 08:51 10:53 WBC (3.8-10.6) k/uL RBC (3.80-5.40) m/uL Hgb (11.4-16.0) gm/dL Hct (34.0-46.0) % Lymphocytes # (1.0-4.8) k/uL Sodium (137-145) mmol/L Potassium (3.5-5.1) mmol/L Chloride (96-109) mmol/L BUN (7-17) mg/dL Creatinine (0.52-1.04) mg/dL Est GFR (CKD-EPI)AfAm (60.0-200.0) Est GFR (CKD-EPI)NonAf (60.0-200.0) BUN/Creatinine Ratio (12.00-20.00) Ratio Glucose (74-99) mg/dL POC Glucose (mg/dL) 323 H 285 H 301 H (75-99) mg/dL Hemoglobin A1c (0.0-6.0) % Calcium (8.7-10.3) mg/dL Urine Appearance (Clear) Urine Protein (Negative) Urine Glucose (UA) (Negative) Urine Ketones (Negative) Urine Blood (Negative) Ur Leukocyte Esterase (Negative) Urine WBC (0-5) /hpf Ur Squamous Epith Cells (0-4) /hpf Urine Bacteria (None) /hpf Crossmatch Microbiology - Last 24 Hours (Table) 08/15/21 19:08 Blood Culture - Preliminary Blood No Growth after 48 hours 08/15/21 19:10 Blood Culture - Preliminary Blood No Growth after 48 hours Assessment and Plan (1) Sepsis due to pneumonia Current Visit: Yes Status: Acute Code(s): J18.9 - PNEUMONIA, UNSPECIFIED ORGANISM; A41.9 - SEPSIS, UNSPECIFIED ORGANISM SNOMED Code(s): 24118329 Plan: 1patient presented to hospital with fever in this patient also have a left lower rib cage pain which is pleuritic concerning for possible pneumonia and question of possible aspiration etiology recently completed course of oral Augmentin. 2we will try to obtain a sputum for Gram stain and culture to narrow down antibiotics 3we will repeat a blood culture to be to chest x-ray CRP and a pro-calcitonin, patient to continue withZosyn 3.375 g every 12 hours Time with Patient: Less than 30
[2021-08-19] MEDS: HYDROmorphone 1 MG/ML 1 ML SYRINGE IVP PRN ×4 (01:40→20:17)
[2021-08-19 02:14] LABS: Glucose,Whole Blood 132 mg/dL (75-99)
[2021-08-19] MEDS: BENZONATATE 100 MG CAP PO PRN ×3 (03:46→20:16)
[2021-08-19 07:15] LABS: Glucose,Whole Blood 431 mg/dL (75-99)
[2021-08-19] MEDS: cloNIDine HCL 0.1 MG TAB PO SCH ×3 (08:30→21:11)
[2021-08-19] MEDS: SEVELAMER 800 MG TAB PO SCH ×3 (08:30→17:26)
[2021-08-19] MEDS: ESCITALOPRAM 20 MG TAB PO SCH (08:30)
[2021-08-19] MEDS: ASPIRIN 81 MG PO SCH (08:30)
[2021-08-19] MEDS: carvediloL 12.5 MG TAB PO SCH ×2 (08:30→17:23)
[2021-08-19] MEDS: PANTOPRAZOLE 40 MG TABLET PO SCH ×2 (08:30→20:16)
[2021-08-19] MEDS: INSULIN ASPART (NovoLOG) 100 UNIT/ML VIAL SQ SCH ×4 (08:31→21:14)
[2021-08-19] MEDS: INSULIN DETEMIR (LEVEMIR) 100 UNIT/ML SYR SQ SCH (08:32)
[2021-08-19] MEDS: HEPARIN SODIUM,PORCINE/PF 5,000 UNIT/0.5 ML SYRINGE SQ SCH ×2 (08:33→20:18)
[2021-08-19] MEDS: ACETAMINOPHEN TAB 325 MG TAB PO PRN (08:36)
[2021-08-19] MEDS: minoxidiL 2.5 MG TAB PO SCH ×2 (09:00→20:17)
[2021-08-19 09:08] LABS: Basophils # (A) 0.03 X 10*3/uL (0.00-0.10); Basophils % (A) 1.3 %; Eosinophils # (A) 0.03 X 10*3/uL (0.04-0.35); Eosinophils % (A) 1.3 %; HCT 21.7 % (37.2-46.3); HGB 7.1 g/dL (12.0-15.0); Immature Grans, Automated 0.4 %; Lymphocytes # (A) 0.43 X 10*3/uL (0.90-5.00); Lymphocytes % (A) 18.7 %; MCHC 32.7 g/dL (32.0-37.0); MCV 88.6 fL (80.0-97.0); Mean Platelet Volume 11.6 fL (9.5-12.2); Monocytes # (A) 0.26 X 10*3/uL (0.20-1.00); Monocytes % (A) 11.3 %; NRBC Per 100 WBC 0 /100 WBCS (0.0-0.0); Neutrophils # (A) 1.54 X 10*3/uL (1.80-7.70); Platelet Count 185 X 10*3/uL (140-440); RBC 2.45 X 10*6/uL (4.10-5.20); RDW 13.4 % (11.5-14.5)
[2021-08-19 09:42] LABS: African American GFR (CKD) 14.2 (60.0-200.0); Anion Gap 17.1 mmol/L (10.00-18.00); BUN/Creat Ratio 4.97 Ratio (12.00-20.00); Blood Urea Nitrogen 22.3 mg/dL (9.0-27.0); Calcium 8.2 mg/dL (8.7-10.3); Carbon Dioxide 21.5 mmol/L (20.0-27.5); Non-African American GFR(CKD) 12.2 (60.0-200.0); Potassium 4.6 mmol/L (3.5-5.5)
--- NOTE | 2021-08-19 09:43 | XR ---
EXAMINATION TYPE: XR chest 2V DATE OF EXAM: 08/19/2021 COMPARISON: 08/15/2021 TECHNIQUE: PA and lateral views submitted. HISTORY: Cough FINDINGS: Arch enlarged and there is diffuse interstitial pattern. There is left upper lobe infiltrate resoluti on and improvement perihilar areas of consolidation. Persistent subsegmental changes at the left lung base. No pleural effusion or pneumothorax. IMPRESSION: 1. Persistent diffuse interstitial pattern correlate for interstitial pneumonitis or interstitial pne umonia. 2. Near complete resolution of left upper lobe area of consolidation and improving right perihilar ar eas of infiltrate. 3. Persistent left lower lobe infiltrate.
[2021-08-19] MEDS: PIPERACILLIN-TAZOBACTAM 3.375 GM in SODIUM CHLORIDE 0.9% 100 ML IVPB SCH ×2 (10:54→21:46)
--- NOTE | 2021-08-19 11:48 | P.PN ---
Subjective Patient is seen for follow-up for end-stage renal disease. She had 3.5 L of ultrafiltration yesterday. Blood pressure is improved Cough persists. Discomfort on taking in deep breaths No other complaints today Objective - Vital Signs Vital signs: Vital Signs Temp 101.2 F H 08/19/21 08:00 Pulse 83 08/19/21 08:00 Resp 14 08/19/21 08:00 BP 190/85 08/19/21 08:00 Pulse Ox 96 08/19/21 08:00 Intake & Output 08/18/21 08/19/21 08/19/21 18:59 06:59 18:59 Intake Total 400 Output Total 3500 Balance -3100 Intake: Intake, IV Titration 100 Amount Piperacillin-Tazobactam 3 100 .375 gm In Sodium Chloride 0.9% 100 ml @ 25 mls/hr IVPB Q12H [facility] Rx# :[id number] Hemodialysis 300 Output: Hemodialysis 3500 Other: Voiding Method Toilet Toilet # Voids 0 - Exam Awake, comfortable, not in any acute distress Examination of the heart S1 and S2 Examination lungs bilateral breath sounds are heard Abdomen is soft Examination lower extremities shows no significant edema [employer] exam grossly intact - Labs CBC & Chem 7: 08/19/21 05:54 08/19/21 05:54 Labs: Abnormal Lab Results - Last 24 Hours (Table) 08/18/21 08/18/21 08/18/21 Range/Units 16:38 16:40 16:58 WBC (4.50-10.00) X 10*3/uL RBC (4.10-5.20) X 10*6/uL Hgb (12.0-15.0) g/dL Hct (37.2-46.3) % Neutrophils # (1.80-7.70) X 10*3/uL Lymphocytes # (0.90-5.00) X 10*3/uL Eosinophils # (0.04-0.35) X 10*3/uL Sodium (135-145) mmol/L Chloride (96-109) mmol/L Creatinine (0.6-1.5) mg/dL Est GFR (CKD-EPI)AfAm (60.0-200.0) Est GFR (CKD-EPI)NonAf (60.0-200.0) BUN/Creatinine Ratio (12.00-20.00) Ratio Glucose (70-110) mg/dL POC Glucose (mg/dL) 58 L 56 L 58 L (75-99) mg/dL Calcium (8.7-10.3) mg/dL C-Reactive Protein (0.00-0.80) mg/dL Procalcitonin (0.02-0.09) ng/mL 08/18/21 08/18/21 08/19/21 Range/Units 17:48 20:10 02:11 WBC (4.50-10.00) X 10*3/uL RBC (4.10-5.20) X 10*6/uL Hgb (12.0-15.0) g/dL Hct (37.2-46.3) % Neutrophils # (1.80-7.70) X 10*3/uL Lymphocytes # (0.90-5.00) X 10*3/uL Eosinophils # (0.04-0.35) X 10*3/uL Sodium (135-145) mmol/L Chloride (96-109) mmol/L Creatinine (0.6-1.5) mg/dL Est GFR (CKD-EPI)AfAm (60.0-200.0) Est GFR (CKD-EPI)NonAf (60.0-200.0) BUN/Creatinine Ratio (12.00-20.00) Ratio Glucose (70-110) mg/dL POC Glucose (mg/dL) 124 H 209 H 132 H (75-99) mg/dL Calcium (8.7-10.3) mg/dL C-Reactive Protein (0.00-0.80) mg/dL Procalcitonin (0.02-0.09) ng/mL 08/19/21 08/19/21 08/19/21 Range/Units 05:54 05:54 05:54 WBC 2.30 L (4.50-10.00) X 10*3/uL RBC 2.45 L (4.10-5.20) X 10*6/uL Hgb 7.1 L (12.0-15.0) g/dL Hct 21.7 L (37.2-46.3) % Neutrophils # 1.54 L (1.80-7.70) X 10*3/uL Lymphocytes # 0.43 L (0.90-5.00) X 10*3/uL Eosinophils # 0.03 L (0.04-0.35) X 10*3/uL Sodium 131 L (135-145) mmol/L Chloride 93 L (96-109) mmol/L Creatinine 4.5 H (0.6-1.5) mg/dL Est GFR (CKD-EPI)AfAm 14.2 L (60.0-200.0) Est GFR (CKD-EPI)NonAf 12.2 L (60.0-200.0) BUN/Creatinine Ratio 4.97 L (12.00-20.00) Ratio Glucose 362 H (70-110) mg/dL POC Glucose (mg/dL) (75-99) mg/dL Calcium 8.2 L (8.7-10.3) mg/dL C-Reactive Protein 8.00 H (0.00-0.80) mg/dL Procalcitonin 17.90 H (0.02-0.09) ng/mL 08/19/21 Range/Units 07:13 WBC (4.50-10.00) X 10*3/uL RBC (4.10-5.20) X 10*6/uL Hgb (12.0-15.0) g/dL Hct (37.2-46.3) % Neutrophils # (1.80-7.70) X 10*3/uL Lymphocytes # (0.90-5.00) X 10*3/uL Eosinophils # (0.04-0.35) X 10*3/uL Sodium (135-145) mmol/L Chloride (96-109) mmol/L Creatinine (0.6-1.5) mg/dL Est GFR (CKD-EPI)AfAm (60.0-200.0) Est GFR (CKD-EPI)NonAf (60.0-200.0) BUN/Creatinine Ratio (12.00-20.00) Ratio Glucose (70-110) mg/dL POC Glucose (mg/dL) 431 H (75-99) mg/dL Calcium (8.7-10.3) mg/dL C-Reactive Protein (0.00-0.80) mg/dL Procalcitonin (0.02-0.09) ng/mL Microbiology - Last 24 Hours (Table) 08/15/21 19:08 Blood Culture - Preliminary Blood No Growth after 72 hours 08/15/21 19:10 Blood Culture - Preliminary Blood No Growth after 72 hours Assessment and Plan Assessment: 1. End-stage renal disease on hemodialysis on a Monday schedule 2. Fluid overload 3. Fever rule out pneumonia 4. Recent hospitalization for fluid overload with large pericardial effusion status post aggressive ultrafiltration of about 12 L during her stay 5. Hypertension partly volume sensitive improves with aggressive ultrafiltration. Continue current medications 6. Anemia, no active bleeding noted status post packed RBCs transfusion, will maintained on Aranesp,M Plan: Hemodialysis in a.m. Start Aranesp Continue current antihypertensive treatment. Continue antibiotics Increase minoxidil if blood pressure remains elevated.
[2021-08-19 12:03] LABS: Glucose,Whole Blood 253 mg/dL (75-99)
--- NOTE | 2021-08-19 12:32 | P.PN ---
Subjective Progress Note Date: 08/19/21 30-year-old female came in with complaints of bilateral rib cage pain, fevers which started on Monday. Patient had an abdominal CT which showed a pneumonic infiltrate in the right lung along with some parapneumonic effusion. Patient was started on broad-spectrum antibiotics vancomycin and cefepime treating for healthcare associated pneumonia patient was recently hospitalized for couple weeks ago at that time patient was treated for intra-abdominal infection at that time. Patient has history of end-stage renal disease hemodialysis dependent. Patient has mild leukocytosis with a white blood cell count of 10 patient does have history of type 1 diabetes mellitus and diabetic nephropathy which led to hemodialysis dependence. 08/17/2021 Patient evaluated today resting in bed during hemodialysis. No acute complaints over night. Continues with dry non productive cough. States ribs are sore from coughing. Denies fever, chills, dysuria, abdominal pain. Has been having loose stools since being started on antibiotics. Blood cultures negative so far. Labs today show WBC 3.2, hgb today 6.2, repeat 8.4 s/p 1 unit PRBC which patient received during hemodialysis. Sodium repeat 135, potassium 3.3, BUN 18, creatinine 2.84, blood glucose elevated today in the 500s. Patient has not been getting levemir since admission as blood sugar was in the 20s at that time. Improved to 80s today with levemir. Continues on IV antibiotics, followed closely by infectious disease. Urine culture pending. 08/18/2021 Patient evaluated today resting in bed during hemodialysis. Patient continues with dry nonproductive cough states that her ribs are sore. Patient underwent hemodialysis today. Labs today show sodium 129, chloride 93. Creatinine 5.1. A1C 7.7, hgb 7.6. BP 129/76, Temp, heart rate 81, 100% 3L. States cough not improved with lozenges or tessalon. Added albuterol as well as she complains of mild sh ortness of breath as well. Blood sugar eleveted 500-600 last night, pt was started on insulin gtt and sugar dropped into the 20s. Today she is back in the 200-300s and we took her off the gtt and started her on low dose levemir. She plans to see endocrinology outpatient. 08/19/2021 Patient continues with persistant cough, non productive. Sore ribs due to coughing. Receiving sugar free lozenges, tessalon and albuterol for cough and breathing. Does complain of some shortness of breath today wearing nasal cannula. Refused incentive spirometry. 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 Blood cultures are negative so far, blood culture today repeated. ID is following closely and patient is on IV zosyn. Blood sugars are coming down slowly, although continues to have extreme lows and highs into the 400-500s. Currently today has been 132, 431, and 253. On levemir 10 units daily and sliding scale. Monitor closely for hypoglycemia. Procalcitonin level today 17.90, CRP 8.00 which both are trending down. Otherwise WBC 2.30, hemoglobin 7.1 s/p 1 unit of PRBCs. Sodium today 131, creatinine 4.5. REVIEW OF SYSTEMS: CONSTITUTIONAL: no malaise, no fatigue. Reports fever/chills. HEENT: No recent visual problems or hearing problems. Denied any sore throat. CARDIOVASCULAR: No orthopnea, PND, no palpitations, no syncope. PULMONARY: Reports shortness of breath, Reports persistent dry non productive cough. GASTROINTESTINAL: Reports loose stools, no nausea, no vomiting, no abdominal pain. Denies dysuria All medications reviewed. PHYSICAL EXAMINATION: GENERAL: The patient is alert and oriented x3, ill appearing, fatigude. Well developed, well nourished. HEENT: Pupils are round and equally reacting to light. EOMI. No scleral icterus. No conjunctival pallor. Normocephalic, atraumatic. No pharyngeal erythema. No thyromegaly. CARDIOVASCULAR: S1 and S2 present. No murmurs, rubs, or gallops. PULMONARY: Chest is clear to auscultation, no wheezing or crackles. Diminished. ABDOMEN: Soft, nontender, nondistended, normoactive bowel sounds. No palpable organomegaly. MUSCULOSKELETAL: No joint swelling or deformity. EXTREMITIES: No cyanosis, clubbing, or pedal edema. NEUROLOGICAL: Gross neurological examination did not reveal any focal deficits. SKIN: No rashes. Assessment and plan -Sepsis: Secondary to bacterial pneumonia most probably. infectious disease is following the patient closely, continues on IV antibiotics, labs are improving. Blood cultures pending. -End-stage renal disease or dialysis dependent for which the nephrology is on consult, on dialysis monday, plan for dialysis tomorrow -Hyponatremia secondary to chronic kidney disease, improving -Anemia, chronic, with hemoglobin 7.1 status post 1 unit PRBCs this admission, no signs of acute bleeding, she is on aranesp -Type 1 diabetes mellitus, uncontrolled with hyperglycemia, continue on current meds and monitor closely will need to see endocrinology on discharge -Pleuritic chest pain and a parapneumonic effusion -Hypertension secondary to renal disease continue her home medications, dialysis again tomorrow. -Depression DVT prophylaxis: subcutaneous heparin GI prophylaxis Full Code The impression and plan of care has been dictated by Jael Keane, Nurse Practitioner as directed. Dr. Sudeep MD I have performed a history and physical examination and medical decision making of this patient, discussed the same with the dictator, and agree with the dictators assessment and plan as written, documented as a scribe. Based on total visit time, I have performed more than 50% of this visit. Objective - Vital Signs Vital signs: Vital Signs Temp 101.2 F H 08/19/21 08:00 Pulse 83 08/19/21 08:00 Resp 14 08/19/21 08:00 BP 190/85 08/19/21 08:00 Pulse Ox 96 08/19/21 08:00 Intake & Output 08/18/21 08/19/21 08/19/21 18:59 06:59 18:59 Intake Total 400 Output Total 3500 Balance -3100 Intake: Intake, IV Titration 100 Amount Piperacillin-Tazobactam 3 100 .375 gm In Sodium Chloride 0.9% 100 ml @ 25 mls/hr IVPB Q12H [facility] Rx# :[id number] Hemodialysis 300 Output: Hemodialysis 3500 Other: Voiding Method Toilet Toilet # Voids 0 - Labs CBC & Chem 7: 08/19/21 05:54 08/19/21 05:54 Labs: Abnormal Lab Results - Last 24 Hours (Table) 08/18/21 08/18/21 08/18/21 Range/Units 16:38 16:40 16:58 WBC (4.50-10.00) X 10*3/uL RBC (4.10-5.20) X 10*6/uL Hgb (12.0-15.0) g/dL Hct (37.2-46.3) % Neutrophils # (1.80-7.70) X 10*3/uL Lymphocytes # (0.90-5.00) X 10*3/uL Eosinophils # (0.04-0.35) X 10*3/uL Sodium (135-145) mmol/L Chloride (96-109) mmol/L Creatinine (0.6-1.5) mg/dL Est GFR (CKD-EPI)AfAm (60.0-200.0) Est GFR (CKD-EPI)NonAf (60.0-200.0) BUN/Creatinine Ratio (12.00-.00) Ratio Glucose (70-110) mg/dL POC Glucose (mg/dL) 58 L 56 L 58 L (75-99) mg/dL Calcium (8.7-10.3) mg/dL C-Reactive Protein (0.00-0.80) mg/dL Procalcitonin (0.02-0.09) ng/mL 08/18/21 08/18/21 08/19/21 Range/Units 17:48 20:10 02:11 WBC (4.50-10.00) X 10*3/uL RBC (4.10-5.20) X 10*6/uL Hgb (12.0-15.0) g/dL Hct (37.2-46.3) % Neutrophils # (1.80-7.70) X 10*3/uL Lymphocytes # (0.90-5.00) X 10*3/uL Eosinophils # (0.04-0.35) X 10*3/uL Sodium (135-145) mmol/L Chloride (96-109) mmol/L Creatinine (0.6-1.5) mg/dL Est GFR (CKD-EPI)AfAm (60.0-200.0) Est GFR (CKD-EPI)NonAf (60.0-200.0) BUN/Creatinine Ratio (12.00-20.00) Ratio Glucose (70-110) mg/dL POC Glucose (mg/dL) 124 H 209 H 132 H (75-99) mg/dL Calcium (8.7-10.3) mg/dL C-Reactive Protein (0.00-0.80) mg/dL Procalcitonin (0.02-0.09) ng/mL 08/19/21 08/19/21 08/19/21 Range/Units 05:54 05:54 05:54 WBC 2.30 L (4.50-10.00) X 10*3/uL RBC 2.45 L (4.10-5.20) X 10*6/uL Hgb 7.1 L (12.0-15.0) g/dL Hct 21.7 L (37.2-46.3) % Neutrophils # 1.54 L (1.80-7.70) X 10*3/uL Lymphocytes # 0.43 L (0.90-5.00) X 10*3/uL Eosinophils # 0.03 L (0.04-0.35) X 10*3/uL Sodium 131 L (135-145) mmol/L Chloride 93 L (96-109) mmol/L Creatinine 4.5 H (0.6-1.5) mg/dL Est GFR (CKD-EPI)AfAm 14.2 L (60.0-200.0) Est GFR (CKD-EPI)NonAf 12.2 L (60.0-200.0) BUN/Creatinine Ratio 4.97 L (12.00-20.00) Ratio Glucose 362 H (70-110) mg/dL POC Glucose (mg/dL) (75-99) mg/dL Calcium 8.2 L (8.7-10.3) mg/dL C-Reactive Protein 8.00 H (0.00-0.80) mg/dL Procalcitonin 17.90 H (0.02-0.09) ng/mL 08/19/21 08/19/21 Range/Units 07:13 12:01 WBC (4.50-10.00) X 10*3/uL RBC (4.10-5.20) X 10*6/uL Hgb (12.0-15.0) g/dL Hct (37.2-46.3) % Neutrophils # (1.80-7.70) X 10*3/uL Lymphocytes # (0.90-5.00) X 10*3/uL Eosinophils # (0.04-0.35) X 10*3/uL Sodium (135-145) mmol/L Chloride (96-109) mmol/L Creatinine (0.6-1.5) mg/dL Est GFR (CKD-EPI)AfAm (60.0-200.0) Est GFR (CKD-EPI)NonAf (60.0-200.0) BUN/Creatinine Ratio (12.00-20.00) Ratio Glucose (70-110) mg/dL POC Glucose (mg/dL) 431 H 253 H (75-99) mg/dL Calcium (8.7-10.3) mg/dL C-Reactive Protein (0.00-0.80) mg/dL Procalcitonin (0.02-0.09) ng/mL Microbiology - Last 24 Hours (Table) 08/15/21 19:08 Blood Culture - Preliminary Blood No Growth after 72 hours 08/15/21 19:10 Blood Culture - Preliminary Blood No Growth after 72 hours Assessment and Plan Time with Patient: Less than 30
[2021-08-19] MEDS: DOXYCYCLINE 100 MG CAP PO SCH ×2 (12:35→20:17)
[2021-08-19] MEDS: DARBEPOETIN ALFA 60 MCG/0.3 ML SYRINGE SQ SCH (14:17)
[2021-08-19 15:06] LABS: Glucose,Whole Blood 69 mg/dL (75-99)
[2021-08-19 15:41] LABS: Glucose,Whole Blood 69 mg/dL (75-99)
[2021-08-19 17:22] LABS: Glucose,Whole Blood 64 mg/dL (75-99)
[2021-08-19] MEDS: ISOSORBIDE MONONITRATE ER 30 MG TAB.ER.24H PO SCH (20:16)
[2021-08-19] MEDS: MELATONIN 5 MG TABLET PO PRN (20:16)
[2021-08-19] MEDS: ALBUTEROL NEBULIZED 2.5 MG/3 ML INHALATION PRN (20:55)
[2021-08-19 20:58] LABS: Glucose,Whole Blood 135 mg/dL (75-99)
[2021-08-19] MEDS ORDERED: carvediloL 12.5 MG TAB PO STA (21:36)
[2021-08-20 01:30] LABS: Glucose,Whole Blood 275 mg/dL (75-99)
[2021-08-20] MEDS: ACETAMINOPHEN TAB 325 MG TAB PO PRN ×2 (02:06→19:37)
[2021-08-20] MEDS: BENZONATATE 100 MG CAP PO PRN ×2 (03:43→19:37)
[2021-08-20] MEDS: HYDROmorphone 1 MG/ML 1 ML SYRINGE IVP PRN ×5 (03:43→21:02)
[2021-08-20 03:54] LABS: Glucose,Whole Blood 379 mg/dL (75-99)
[2021-08-20 06:52] LABS: Glucose,Whole Blood 526 mg/dL (75-99)
[2021-08-20] MEDS: INSULIN ASPART (NovoLOG) 100 UNIT/ML VIAL SQ SCH ×4 (06:54→21:04)
[2021-08-20] MEDS: PANTOPRAZOLE 40 MG TABLET PO SCH ×2 (08:06→19:37)
[2021-08-20] MEDS: ESCITALOPRAM 20 MG TAB PO SCH (08:06)
[2021-08-20] MEDS: ASPIRIN 81 MG PO SCH (08:06)
[2021-08-20] MEDS: HEPARIN SODIUM,PORCINE/PF 5,000 UNIT/0.5 ML SYRINGE SQ SCH ×2 (08:06→19:38)
[2021-08-20] MEDS: SEVELAMER 800 MG TAB PO SCH ×3 (08:06→17:26)
[2021-08-20] MEDS: INSULIN DETEMIR (LEVEMIR) 100 UNIT/ML SYR SQ SCH (08:06)
[2021-08-20] MEDS: DOXYCYCLINE 100 MG CAP PO SCH ×2 (08:06→21:02)
[2021-08-20 08:56] LABS: HCT 21.1 % (37.2-46.3); MCH 29.3 pg (27.0-32.0); MCHC 33.2 g/dL (32.0-37.0); MCV 88.3 fL (80.0-97.0); Mean Platelet Volume 11.7 fL (9.5-12.2); NRBC Per 100 WBC 0 /100 WBCS (0.0-0.0); Platelet Count 142 X 10*3/uL (140-440); RBC 2.39 X 10*6/uL (4.10-5.20); RDW 13.3 % (11.5-14.5); WBC 1.89 X 10*3/uL (4.50-10.00)
[2021-08-20 09:32] LABS: Anion Gap 17.1 mmol/L (10.00-18.00); BUN/Creat Ratio 6.04 Ratio (12.00-20.00); Blood Urea Nitrogen 43.5 mg/dL (9.0-27.0); Calcium 8.1 mg/dL (8.7-10.3); Carbon Dioxide 18.9 mmol/L (20.0-27.5); Non-African American GFR(CKD) 6.9 (60.0-200.0); Potassium 5.1 mmol/L (3.5-5.5)
[2021-08-20 09:57] LABS: Basophils # (A) 0.01 X 10*3/uL (0.00-0.10); Basophils % (A) 0.5 %; Eosinophils # (A) 0.02 X 10*3/uL (0.04-0.35); Eosinophils % (A) 1.1 %; Immature Grans, Automated 0.5 %; Lymphocytes # (A) 0.28 X 10*3/uL (0.90-5.00); Lymphocytes % (A) 14.8 %; Monocytes # (A) 0.13 X 10*3/uL (0.20-1.00); Monocytes % (A) 6.9 %; Neutrophils # (A) 1.44 X 10*3/uL (1.80-7.70); Neutrophils % (A) 76.2 %
[2021-08-20] MEDS: diphenhydrAMINE 50 MG/ML 1 ML VIAL IVP PRN (10:12)
[2021-08-20] MEDS ORDERED: VANCOMYCIN IV PER PHARMACY 1 EACH MISC MISCELLANE PRN (11:17)
[2021-08-20 11:20] LABS: Glucose,Whole Blood 159 mg/dL (75-99)
[2021-08-20] MEDS: PIPERACILLIN-TAZOBACTAM 3.375 GM in SODIUM CHLORIDE 0.9% 100 ML IVPB SCH ×2 (11:37→22:45)
[2021-08-20] MEDS ORDERED: VANCOMYCIN 750 MG in SODIUM CHLORIDE 0.9% 250 ML IVPB ONE (12:00)
[2021-08-20] MEDS ORDERED: VANCOMYCIN 1,000 MG in SODIUM CHLORIDE 0.9% 250 ML IVPB ONE (12:00)
[2021-08-20] MEDS: minoxidiL 2.5 MG TAB PO SCH ×2 (13:12→21:04)
[2021-08-20] MEDS: carvediloL 12.5 MG TAB PO SCH ×2 (13:12→17:24)
[2021-08-20] MEDS: cloNIDine HCL 0.1 MG TAB PO SCH ×3 (13:12→19:37)
--- NOTE | 2021-08-20 14:34 | P.PN ---
Subjective Progress Note Date: 08/20/21 30-year-old female came in with complaints of bilateral rib cage pain, fevers which started on Monday. Patient had an abdominal CT which showed a pneumonic infiltrate in the right lung along with some parapneumonic effusion. Patient was started on broad-spectrum antibiotics vancomycin and cefepime treating for healthcare associated pneumonia patient was recently hospitalized for couple weeks ago at that time patient was treated for intra-abdominal infection at that time. Patient has history of end-stage renal disease hemodialysis dependent. Patient has mild leukocytosis with a white blood cell count of 10 patient does have history of type 1 diabetes mellitus and diabetic nephropathy which led to hemodialysis dependence. 08/17/2021 Patient evaluated today resting in bed during hemodialysis. No acute complaints over night. Continues with dry non productive cough. States ribs are sore from coughing. Denies fever, chills, dysuria, abdominal pain. Has been having loose stools since being started on antibiotics. Blood cultures negative so far. Labs today show WBC 3.2, hgb today 6.2, repeat 8.4 s/p 1 unit PRBC which patient received during hemodialysis. Sodium repeat 135, potassium 3.3, BUN 18, creatinine 2.84, blood glucose elevated today in the 500s. Patient has not been getting levemir since admission as blood sugar was in the 20s at that time. Improved to 80s today with levemir. Continues on IV antibiotics, followed closely by infectious disease. Urine culture pending. 08/18/2021 Patient evaluated today resting in bed during hemodialysis. Patient continues with dry nonproductive cough states that her ribs are sore. Patient underwent hemodialysis today. Labs today show sodium 129, chloride 93. Creatinine 5.1. A1C 7.7, hgb 7.6. BP 129/76, Temp, heart rate 81, 100% 3L. States cough not improved with lozenges or tessalon. Added albuterol as well as she complains of mild shortness of breath as well. Blood sugar eleveted 500-600 last night, pt was started on insulin gtt and sugar dropped into the 20s. Today she is back in the 200-300s and we took her off the gtt and started her on low dose levemir. She plans to see endocrinology outpatient. 08/19/2021 Patient continues with persistant cough, non productive. Sore ribs due to coughing. Receiving sugar free lozenges, tessalon and albuterol for cough and breathing. Does complain of some shortness of breath today wearing nasal cannula. Refused incentive spirometry. 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 Blood cultures are negative so far, blood culture today repeated. ID is following closely and patient is on IV zosyn. Blood sugars are coming down slowly, although continues to have extreme lows and highs into the 400-500s. Currently today has been 132, 431, and 253. On levemir 10 units daily and sliding scale. Monitor closely for hypoglycemia. Procalcitonin level today 17.90, CRP 8.00 which both are trending down. Otherwise WBC 2.30, hemoglobin 7.1 s/p 1 unit of PRBCs. Sodium today 131, creatinine 4.5. 08/20/2021 Patient is seen and evaluated in follow-up this morning and continues with a cough and reports the shortness of breath. Patient also reports to not sleeping very well and feeling generalized fatigue. Blood sugars are uncontrolled and hyperglycemic although when attempting to place the patient on insulin drip patient drops significantly rather quickly and becomes severely hypoglycemic. Patient is maintained on IV Zosyn and vancomycin is being added infectious disea se following closely. Patient continues to have fevers and currently requiring 3 L of oxygen via nasal cannula. Blood pressure uncontrolled and will continue to monitor closely. Patient reports to some chest pain from the cough and continues to have pain on deep inspiration. Incentive spirometer at the bedside encourage the patient to continue using although patient is resistant per nursing staff. Continue with breathing inhalational treatments. REVIEW OF SYSTEMS: CONSTITUTIONAL: no malaise, reports fatigue. Reports fever/chills. HEENT: No recent visual problems or hearing problems. Reports sore throat. CARDIOVASCULAR: No orthopnea, PND, no palpitations, no syncope. PULMONARY: Reports shortness of breath, Reports persistent dry non productive cough. GASTROINTESTINAL: Reports loose stools, no nausea, no vomiting, no abdominal pain. Denies dysuria Active Medications Acetaminophen (Acetaminophen Tab 325 Mg Tab) 650 mg PO Q6HR PRN PRN Reason: Mild Pain or Fever > 100.5 Last Admin: 08/20/21 02:06 Dose: 650 mg Documented by: Hydrocodone Bitart/Acetaminophen (Hydrocodone/Apap 5-325mg 1 Each Tab) 1 each PO Q6HR PRN PRN Reason: Pain Last Admin: 08/17/21 02:56 Dose: 1 each Documented by: Albuterol Sulfate (Albuterol Nebulized 2.5 Mg/3 Ml) 2.5 mg INHALATION RT-QID PRN PRN Reason: Shortness Of Breath Or Wheezing Last Admin: 08/19/21 20:55 Dose: 2.5 mg Documented by: Aspirin (Aspirin 81 Mg) 81 mg PO DAILY [facility] Last Admin: 08/20/21 08:06 Dose: 81 mg Documented by: Benzocaine/Menthol (Benzocaine/Menthol Lozeng 1 Each Lozenge) 1 each MUCOUS MEM Q4HR PRN PRN Reason: Cough Last Admin: 08/17/21 17:22 Dose: 1 each Documented by: Benzonatate (Benzonatate 100 Mg Cap) 100 mg PO TID PRN PRN Reason: Cough Last Admin: 08/20/21 03:43 Dose: 100 mg Documented by: Carvedilol (Carvedilol 12.5 Mg Tab) 25 mg PO BID-W/MEALS [facility] Last Admin: 08/19/21 17:23 Dose: Not Given Documented by: Clonidine (Clonidine Hcl 0.1 Mg Tab) 0.3 mg PO TID [facility] Last Admin: 08/19/21 21:11 Dose: 0.3 mg Documented by: Darbepoetin Tate (Darbepoetin Tate 60 Mcg/0.3 Ml Syringe) 60 mcg SQ Q7D [facility] Last Admin: 08/19/21 14:17 Dose: 60 mcg Documented by: Diphenhydramine HCl (Diphenhydramine 50 Mg/Ml 1 Ml Vial) 25 mg IVP Q6HR PRN PRN Reason: Itching Doxycycline Monohydrate (Doxycycline 100 Mg Cap) 100 mg PO BID [facility]; Protocol Last Admin: 08/20/21 08:06 Dose: 100 mg Documented by: Ergocalciferol (Ergocalciferol 1,250 Mcg (50,000 Iu) Capsule) 1,250 mcg PO Loo@0900 [facility] Last Admin: 08/15/21 23:34 Dose: 1,250 mcg Documented by: Escitalopram Oxalate (Escitalopram 20 Mg Tab) 20 mg PO DAILY [facility] Last Admin: 08/20/21 08:06 Dose: 20 mg Documented by: Heparin Sodium (Porcine) (Heparin Sodium,Porcine/Pf 5,000 Unit/0.5 Ml Syringe) 5,000 unit SQ Q12HR [facility] Last Admin: 08/20/21 08:06 Dose: 5,000 unit Documented by: Hydromorphone HCl (Hydromorphone 0.5 Mg/0.5 Ml Syringe) 0.5 mg IVP Q3HR PRN PRN Reason: Moderate Pain Last Admin: 08/17/21 18:52 Dose: 0.5 mg Documented by: Hydromorphone HCl (Hydromorphone 1 Mg/Ml 1 Ml Syringe) 1 mg IVP Q3HR PRN PRN Reason: Severe Pain Last Admin: 08/20/21 08:06 Dose: 1 mg Documented by: Piperacillin Sod/Tazobactam (Sod 3.375 gm/ Sodium Chloride) 100 mls @ 25 mls/hr IVPB Q12H [facility]; Protocol Last Admin: 08/19/21 21:46 Dose: 25 mls/hr Documented by: Insulin Aspart (Insulin Aspart (Novolog) 100 Unit/Ml Vial) 0 unit SQ ACHS [facility]; Protocol Last Admin: 08/20/21 06:54 Dose: 8 unit Documented by: Insulin Detemir (Insulin Detemir (Levemir) 100 Unit/Ml Syr) 10 unit SQ IVETH Y@0700 [facility] Last Admin: 08/20/21 08:06 Dose: 10 unit Documented by: Isosorbide Mononitrate (Isosorbide Mononitrate Er 30 Mg Tab.Er.24h) 30 mg PO HS [facility] Last Admin: 08/19/21 20:16 Dose: 30 mg Documented by: Lorazepam (Lorazepam 2 Mg/Ml Inj) 0.5 mg IV Q6HR PRN PRN Reason: Anxiety Melatonin (Melatonin 5 Mg Tablet) 5 - 10 mg PO HS PRN PRN Reason: Insomnia Last Admin: 08/19/21 20:16 Dose: 10 mg Documented by: Metoclopramide HCl (Metoclopramide 5 Mg/Ml 2 Ml Vial) 5 mg IVP BID PRN PRN Reason: Nausea And Vomiting Last Admin: 08/15/21 18:59 Dose: 5 mg Documented by: Minoxidil (Minoxidil 2.5 Mg Tab) 2.5 mg PO BID [facility] Last Admin: 08/19/21 20:17 Dose: 2.5 mg Documented by: Naloxone HCl (Naloxone 0.4 Mg/Ml 1 Ml Vial) 0.2 mg IV Q2M PRN PRN Reason: Opioid Reversal Pantoprazole Sodium (Pantoprazole 40 Mg Tablet) 40 mg PO BID [facility] Last Admin: 08/20/21 08:06 Dose: 40 mg Documented by: Ropinirole HCl (Ropinirole Hcl 0.25 Mg Tab) 0.5 mg PO HS [facility] Last Admin: 08/19/21 20:16 Dose: 0.5 mg Documented by: Sevelamer Carbonate (Sevelamer 800 Mg Tab) 800 mg PO TID-W/MEALS [facility] Last Admin: 08/20/21 08:06 Dose: 800 mg Documented by: PHYSICAL EXAMINATION: GENERAL: The patient is alert and oriented x3, ill appearing, fatigued. Well developed, well nourished. HEENT: Pupils are round and equally reacting to light. EOMI. No scleral icterus. No conjunctival pallor. Normocephalic, atraumatic. No pharyngeal erythema. No thyromegaly. CARDIOVASCULAR: S1 and S2 muffled PULMONARY: Chest is diminished bilaterally with some scattered rhonchi noted ABDOMEN: Soft, nontender, nondistended, normoactive bowel sounds. No palpable organomegaly. MUSCULOSKELETAL: No joint swelling or deformity. EXTREMITIES: No cyanosis, clubbing, or pedal edema. NEUROLOGICAL: Gross neurological examination did not reveal any focal deficits. SKIN: No rashes. Assessment: -Sepsis: Secondary to bacterial pneumonia most probably. infectious disease is following the patient closely, continues on IV antibiotics, labs are improving. Blood cultures pending. -End-stage renal disease or dialysis dependent for which the nephrology is on consult, on dialysis monday, plan for dialysis tomorrow -Hyponatremia secondary to chronic kidney disease, improving -Anemia, chronic, with hemoglobin 7.1 status post 1 unit PRBCs this admission, no signs of acute bleeding, she is on aranesp -Type 1 diabetes mellitus, uncontrolled with hyperglycemia, continue on current meds and monitor closely will need to see endocrinology on discharge -Pleuritic chest pain and a parapneumonic effusion -Hypertension secondary to renal disease continue her home medications, dialysis again tomorrow. -Depression -DVT prophylaxis: subcutaneous heparin -GI prophylaxis -Full Code Plan: Recommend to continue with breathing inhalational treatments and strongly encourage incentive spirometer at least 10 times every hour while awake Patient is continued on IV Zosyn and vancomycin being added per infectious disease with infectious disease following closely. Sputum culture uncollected. Most recent blood cultures remain negative and repeat blood culture ordered and pending Chest x-ray reviewed personally by me showing persistent diffuse interstitial patterns to correlate for interstitial pneumonitis or interstitial pneumonia with near complete resolution of the left upper lobe area and consolidation is improving and the right. Hilar areas of infiltrate although left lower lobe infiltrate persists. Follow-up chest x-ray in the a.m. Patient is to continue on dialysis Monday/Monday/Monday with nephrology following closely and currently receiving dialysis at this time Recommend repeat labs in the a.m. Continue to encourage increased activity as tolerated, encourage oral intake Recommend close monitoring of blood sugars and before meals and at bedtime Accu- Cheks along with as needed as patient is a brittle diabetic and blood sugars have been extremely high and subsequently low shortly after treatment, encouraged oral intake as well Given multiple complex medical issues, prognosis is guarded. The impression and plan of care has been dictated by Cindi Saha, Nurse Practitioner as directed. Dr. Jean MD I have performed a history and physical examination and medical decision making of this patient, discussed the same with the dictator, and agree with the dictators assessment and plan as written, documented as a scribe. Based on total visit time, I have performed more than 50% of this visit. Objective - Vital Signs Vital signs: Vital Signs Temp 97.6 F 08/20/21 08:00 Pulse 81 08/20/21 08:00 Resp 16 08/20/21 08:00 BP 176/85 08/20/21 08:00 Pulse Ox 99 08/20/21 08:00 Intake & Output 08/19/21 08/20/21 08/20/21 18:59 06:59 18:59 Intake Total 100 Balance 100 Weight 47.627 kg Intake: Intake, IV Titration 100 Amount Piperacillin-Tazobactam 3 100 .375 gm In Sodium Chloride 0.9% 100 ml @ 25 mls/hr IVPB Q12H [facility] Rx# :[id number] Other: Voiding Method Toilet Diaper Diaper # Voids 0 - Labs CBC & Chem 7: 08/20/21 05:45 08/20/21 05:45 Labs: Abnormal Lab Results - Last 24 Hours (Table) 08/19/21 08/19/21 08/19/21 Range/Units 12:01 15:04 15:39 WBC (4.50-10.00) X 10*3/uL RBC (4.10-5.20) X 10*6/uL Hgb (12.0-15.0) g/dL Hct (37.2-46.3) % Neutrophils # (1.80-7.70) X 10*3/uL Lymphocytes # (0.90-5.00) X 10*3/uL Monocytes # (0.20-1.00) X 10*3/uL Eosinophils # (0.04-0.35) X 10*3/uL Sodium (135-145) mmol/L Chloride (96-109) mmol/L Carbon Dioxide (20.0-27.5) mmol/L BUN (9.0-27.0) mg/dL Creatinine (0.6-1.5) mg/dL Est GFR (CKD-EPI)AfAm (60.0-200.0) Est GFR (CKD-EPI)NonAf (60.0-200.0) BUN/Creatinine Ratio (12.00-20.00) Ratio Glucose (70-110) mg/dL POC Glucose (mg/dL) 253 H 69 L 69 L (75-99) mg/dL Calcium (8.7-10.3) mg/dL 08/19/21 08/19/21 08/20/21 Range/Units 17:21 20:36 01:26 WBC (4.50-10.00) X 10*3/uL RBC (4.10-5.20) X 10*6/uL Hgb (12.0-15.0) g/dL Hct (37.2-46.3) % Neutrophils # (1.80-7.70) X 10*3/uL Lymphocytes # (0.90-5.00) X 10*3/uL Monocytes # (0.20-1.00) X 10*3/uL Eosinophils # (0.04-0.35) X 10*3/uL Sodium (135-145) mmol/L Chloride (96-109) mmol/L Carbon Dioxide (20.0-27.5) mmol/L BUN (9.0-27.0) mg/dL Creatinine (0.6-1.5) mg/dL Est GFR (CKD-EPI)AfAm (60.0-200.0) Est GFR (CKD-EPI)NonAf (60.0-200.0) BUN/Creatinine Ratio (12.00-20.00) Ratio Glucose (70-110) mg/dL POC Glucose (mg/dL) 64 L 135 H 275 H (75-99) mg/dL Calcium (8.7-10.3) mg/dL 08/20/21 08/20/21 08/20/21 Range/Units 03:51 05:45 05:45 WBC 1.89 L (4.50-10.00) X 10*3/uL RBC 2.39 L (4.10-5.20) X 10*6/uL Hgb 7.0 L (12.0-15.0) g/dL Hct 21.1 L (37.2-46.3) % Neutrophils # 1.44 L (1.80-7.70) X 10*3/uL Lymphocytes # 0.28 L (0.90-5.00) X 10*3/uL Monocytes # 0.13 L (0.20-1.00) X 10*3/uL Eosinophils # 0.02 L (0.04-0.35) X 10*3/uL Sodium 126 L (135-145) mmol/L Chloride 90 L (96-109) mmol/L Carbon Dioxide 18.9 L (20.0-27.5) mmol/L BUN 43.5 H (9.0-27.0) mg/dL Creatinine 7.2 H* (0.6-1.5) mg/dL Est GFR (CKD-EPI)AfAm 8.0 L (60.0-200.0) Est GFR (CKD-EPI)NonAf 6.9 L (60.0-200.0) BUN/Creatinine Ratio 6.04 L (12.00-20.00) Ratio Glucose 482 H (70-110) mg/dL POC Glucose (mg/dL) 379 H (75-99) mg/dL Calcium 8.1 L (8.7-10.3) mg/dL 08/20/21 Range/Units 06:50 WBC (4.50-10.00) X 10*3/uL RBC (4.10-5.20) X 10*6/uL Hgb (12.0-15.0) g/dL Hct (37.2-46.3) % Neutrophils # (1.80-7.70) X 10*3/uL Lymphocytes # (0.90-5.00) X 10*3/uL Monocytes # (0.20-1.00) X 10*3/uL Eosinophils # (0.04-0.35) X 10*3/uL Sodium (135-145) mmol/L Chloride (96-109) mmol/L Carbon Dioxide (20.0-27.5) mmol/L BUN (9.0-27.0) mg/dL Creatinine (0.6-1.5) mg/dL Est GFR (CKD-EPI)AfAm (60.0-200.0) Est GFR (CKD-EPI)NonAf (60.0-200.0) BUN/Creatinine Ratio (12.00-20.00) Ratio Glucose (70-110) mg/dL POC Glucose (mg/dL) 526 H (75-99) mg/dL Calcium (8.7-10.3) mg/dL Microbiology - Last 24 Hours (Table) 08/19/21 05:54 Blood Culture - Preliminary Blood No Growth after 24 hours 08/15/21 19:08 Blood Culture - Preliminary Blood No Growth after 96 hours 08/15/21 19:10 Blood Culture - Preliminary Blood No Growth after 96 hours
[2021-08-20 16:18] LABS: Glucose,Whole Blood 39 mg/dL (75-99)
[2021-08-20 17:03] LABS: Glucose,Whole Blood 88 mg/dL (75-99)
--- NOTE | 2021-08-20 17:49 | P.PN ---
Subjective Patient is seen for follow-up for end-stage renal disease. Patient was admitted to the hospital with fever, cough and volume overload. Patient is maintained on antibiotics however she continues to have fever. Blood pressure was low last night and patient received IV fluids. Patient is usually quite hypertensive and has been significantly volume overloaded with removal of about 12 L on her recent hospitalization 2 weeks ago. Cough persists. Discomfort on taking in deep breaths Seen on hemodialysis today. Objective - Vital Signs Vital signs: Vital Signs Temp 97.6 F 08/20/21 14:22 Pulse 69 08/20/21 14:22 Resp 16 08/20/21 14:22 BP 169/98 08/20/21 14:22 Pulse Ox 100 08/20/21 13:58 Intake & Output 08/19/21 08/20/21 08/20/21 18:59 06:59 18:59 Intake Total 100 360 Output Total 4000 Balance 100 -3640 Weight 47.627 kg Intake: Intake, IV Titration 100 Amount Piperacillin-Tazobactam 3 100 .375 gm In Sodium Chloride 0.9% 100 ml @ 25 mls/hr IVPB Q12H [facility] Rx# :[id number] Oral 360 Output: Hemodialysis 4000 Other: Voiding Method Toilet Diaper Diaper # Voids 0 3 - Exam Awake, comfortable, not in any acute distress Examination of the heart S1 and S2 Examination lungs bilateral breath sounds are heard, crackles at the bases Abdomen is soft Examination lower extremities shows no significant edema NURSE 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 exam grossly intact - Labs CBC & Chem 7: 08/20/21 05:45 08/20/21 05:45 Labs: Abnormal Lab Results - Last 24 Hours (Table) 08/19/21 08/20/21 08/20/21 Range/Units 20:36 01:26 03:51 WBC (4.50-10.00) X 10*3/uL RBC (4.10-5.20) X 10*6/uL Hgb (12.0-15.0) g/dL Hct (37.2-46.3) % Neutrophils # (1.80-7.70) X 10*3/uL Lymphocytes # (0.90-5.00) X 10*3/uL Monocytes # (0.20-1.00) X 10*3/uL Eosinophils # (0.04-0.35) X 10*3/uL Sodium (135-145) mmol/L Chloride (96-109) mmol/L Carbon Dioxide (20.0-27.5) mmol/L BUN (9.0-27.0) mg/dL Creatinine (0.6-1.5) mg/dL Est GFR (CKD-EPI)AfAm (60.0-200.0) Est GFR (CKD-EPI)NonAf (60.0-200.0) BUN/Creatinine Ratio (12.00-20.00) Ratio Glucose (70-110) mg/dL POC Glucose (mg/dL) 135 H 275 H 379 H (75-99) mg/dL Calcium (8.7-10.3) mg/dL 08/20/21 08/20/21 08/20/21 Range/Units 05:45 05:45 06:50 WBC 1.89 L (4.50-10.00) X 10*3/uL RBC 2.39 L (4.10-5.20) X 10*6/uL Hgb 7.0 L (12.0-15.0) g/dL Hct 21.1 L (37.2-46.3) % Neutrophils # 1.44 L (1.80-7.70) X 10*3/uL Lymphocytes # 0.28 L (0.90-5.00) X 10*3/uL Monocytes # 0.13 L (0.20-1.00) X 10*3/uL Eosinophils # 0.02 L (0.04-0.35) X 10*3/uL Sodium 126 L (135-145) mmol/L Chloride 90 L (96-109) mmol/L Carbon Dioxide 18.9 L (20.0-27.5) mmol/L BUN 43.5 H (9.0-27.0) mg/dL Creatinine 7.2 H* (0.6-1.5) mg/dL Est GFR (CKD-EPI)AfAm 8.0 L (60.0-200.0) Est GFR (CKD-EPI)NonAf 6.9 L (60.0-200.0) BUN/Creatinine Ratio 6.04 L (12.00-20.00) Ratio Glucose 482 H (70-110) mg/dL POC Glucose (mg/dL) 526 H (75-99) mg/dL Calcium 8.1 L (8.7-10.3) mg/dL 08/20/21 08/20/21 Range/Units 11:18 16:14 WBC (4.50-10.00) X 10*3/uL RBC (4.10-5.20) X 10*6/uL Hgb (12.0-15.0) g/dL Hct (37.2-46.3) % Neutrophils # (1.80-7.70) X 10*3/uL Lymphocytes # (0.90-5.00) X 10*3/uL Monocytes # (0.20-1.00) X 10*3/uL Eosinophils # (0.04-0.35) X 10*3/uL Sodium (135-145) mmol/L Chloride (96-109) mmol/L Carbon Dioxide (20.0-27.5) mmol/L BUN (9.0-27.0) mg/dL Creatinine (0.6-1.5) mg/dL Est GFR (CKD-EPI)AfAm (60.0-200.0) Est GFR (CKD-EPI)NonAf (60.0-200.0) BUN/Creatinine Ratio (12.00-20.00) Ratio Glucose (70-110) mg/dL POC Glucose (mg/dL) 159 H 39 L (75-99) mg/dL Calcium (8.7-10.3) mg/dL Microbiology - Last 24 Hours (Table) 08/19/21 05:54 Blood Culture - Preliminary Blood No Growth after 24 hours 08/15/21 19:08 Blood Culture - Preliminary Blood No Growth after 96 hours 08/15/21 19:10 Blood Culture - Preliminary Blood No Growth after 96 hours Assessment and Plan Assessment: 1. End-stage renal disease on hemodialysis on a Monday schedule 2. Fluid overload 3. Left lower lobe pneumonia 4. Recent hospitalization for fluid overload with large pericardial effusion status post aggressive ultrafiltration of about 12 L during her stay 5. Hypertension partly volume sensitive improves with aggressive ultrafiltration. Continue current medications 6. Anemia, no active bleeding noted status post packed RBCs transfusion, maintained on Aranesp, Plan: Hemodialysis today Avoid any further IV fluids Repeat hemodialysis in a.m. Check iron profile
[2021-08-20] MEDS: MELATONIN 5 MG TABLET PO PRN (19:38)
[2021-08-20] MEDS: ISOSORBIDE MONONITRATE ER 30 MG TAB.ER.24H PO SCH (19:38)
[2021-08-20 20:09] LABS: Glucose,Whole Blood 307 mg/dL (75-99)
--- NOTE | 2021-08-20 21:58 | P.PN ---
Subjective Progress Note Date: 08/19/21 Principal diagnosis: Pneumonia Patient is a 30-year-old female with a past medical history significant for end-stage renal disease on dialysis presented to the hospital w ith a fever of left lower chest pain concerning for pneumonia. On today's evaluation that is 08/19/2021, the patient is febrile this morning again, the patient denies any worsening chest pain the patient did have a cough but not bringing up any sputum and no vomiting no abdominal pain and no diarrhea Objective - Vital Signs Vital signs: Vital Signs Temp 101.2 F H 08/19/21 08:00 Pulse 83 08/19/21 08:00 Resp 14 08/19/21 08:00 BP 190/85 08/19/21 08:00 Pulse Ox 96 08/19/21 08:00 Intake & Output 08/18/21 08/19/21 08/19/21 18:59 06:59 18:59 Intake Total 400 Output Total 3500 Balance -3100 Intake: Intake, IV Titration 100 Amount Piperacillin-Tazobactam 3 100 .375 gm In Sodium Chloride 0.9% 100 ml @ 25 mls/hr IVPB Q12H [facility] Rx# :[id number] Hemodialysis 300 Output: Hemodialysis 3500 Other: Voiding Method Toilet Toilet # Voids 0 - Exam GENERAL DESCRIPTION: Middle-age female lying in bed in no distress RESPIRATORY SYSTEM: Unlabored breathing , decreased breath sounds at bases HEART: S1 S2 regular rate and rhythm , ABDOMEN: Soft , no tenderness EXTREMITIES: No edema feet - Labs CBC & Chem 7: 08/20/21 05:45 08/20/21 05:45 Labs: Abnormal Lab Results - Last 24 Hours (Table) 08/18/21 08/18/21 08/18/21 Range/Units 16:38 16:40 16:58 WBC (4.50-10.00) X 10*3/uL RBC (4.10-5.20) X 10*6/uL Hgb (12.0-15.0) g/dL Hct (37.2-46.3) % Neutrophils # (1.80-7.70) X 10*3/uL Lymphocytes # (0.90-5.00) X 10*3/uL Eosinophils # (0.04-0.35) X 10*3/uL Sodium (135-145) mmol/L Chloride (96-109) mmol/L Creatinine (0.6-1.5) mg/dL Est GFR (CKD-EPI)AfAm (60.0-200.0) Est GFR (CKD-EPI)NonAf (60.0-200.0) BUN/Creatinine Ratio (12.00-20.00) Ratio Glucose (70-110) mg/dL POC Glucose (mg/dL) 58 L 56 L 58 L (75-99) mg/dL Calcium (8.7-10.3) mg/dL C-Reactive Protein (0.00-0.80) mg/dL Procalcitonin (0.02-0.09) ng/mL 08/18/21 08/18/21 08/19/21 Range/Units 17:48 20:10 02:11 WBC (4.50-10.00) X 10*3/uL RBC (4.10-5.20) X 10*6/uL Hgb (12.0-15.0) g/dL Hct (37.2-46.3) % Neutrophils # (1.80-7.70) X 10*3/uL Lymphocytes # (0.90-5.00) X 10*3/uL Eosinophils # (0.04-0.35) X 10*3/uL Sodium (135-145) mmol/L Chloride (96-109) mmol/L Creatinine (0.6-1.5) mg/dL Est GFR (CKD-EPI)AfAm (60.0-200.0) Est GFR (CKD-EPI)NonAf (60.0-200.0) BUN/Creatinine Ratio (12.00-20.00) Ratio Glucose (70-110) mg/dL POC Glucose (mg/dL) 124 H 209 H 132 H (75-99) mg/dL Calcium (8.7-10.3) mg/dL C-Reactive Protein (0.00-0.80) mg/dL Procalcitonin (0.02-0.09) ng/mL 08/19/21 08/19/21 08/19/21 Range/Units 05:54 05:54 05:54 WBC 2.30 L (4.50-10.00) X 10*3/uL RBC 2.45 L (4.10-5.20) X 10*6/uL Hgb 7.1 L (12.0-15.0) g/dL Hct 21.7 L (37.2-46.3) % Neutrophils # 1.54 L (1.80-7.70) X 10*3/uL Lymphocytes # 0.43 L (0.90-5.00) X 10*3/uL Eosinophils # 0.03 L (0.04-0.35) X 10*3/uL Sodium 131 L (135-145) mmol/L Chloride 93 L (96-109) mmol/L Creatinine 4.5 H (0.6-1.5) mg/dL Est GFR (CKD-EPI)AfAm 14.2 L (60.0-200.0) Est GFR (CKD-EPI)NonAf 12.2 L (60.0-200.0) BUN/Creatinine Ratio 4.97 L (12.00-20.00) Ratio Glucose 362 H (70-110) mg/dL POC Glucose (mg/dL) (75-99) mg/dL Calcium 8.2 L (8.7-10.3) mg/dL C-Reactive Protein 8.00 H (0.00-0.80) mg/dL Procalcitonin 17.90 H (0.02-0.09) ng/mL 08/19/21 Range/Units 07:13 WBC (4.50-10.00) X 10*3/uL RBC (4.10-5.20) X 10*6/uL Hgb (12.0-15.0) g/dL Hct (37.2-46.3) % Neutrophils # (1.80-7.70) X 10*3/uL Lymphocytes # (0.90-5.00) X 10*3/uL Eosinophils # (0.04-0.35) X 10*3/uL Sodium (135-145) mmol/L Chloride (96-109) mmol/L Creatinine (0.6-1.5) mg/dL Est GFR (CKD-EPI)AfAm (60.0-200.0) Est GFR (CKD-EPI)NonAf (60.0-200.0) BUN/Creatinine Ratio (12.00-20.00) Ratio Glucose (70-110) mg/dL POC Glucose (mg/dL) 431 H (75-99) mg/dL Calcium (8.7-10.3) mg/dL C-Reactive Protein (0.00-0.80) mg/dL Procalcitonin (0.02-0.09) ng/mL Microbiology - Last 24 Hours (Table) 08/15/21 19:08 Blood Culture - Preliminary Blood No Growth after 72 hours 08/15/21 19:10 Blood Culture - Preliminary Blood No Growth after 72 hours Assessment and Plan (1) Sepsis due to pneumonia Current Visit: Yes Status: Acute Code(s): J18.9 - PNEUMONIA, UNSPECIFIED ORGANISM; A41.9 - SEPSIS, UNSPECIFIED ORGANISM SNOMED Code(s): 45568405 Plan: 1patient presented to hospital with fever in this patient also have a left lower rib cage pain which is pleuritic concerning for possible pneumonia and question of possible aspiration etiology recently completed course of oral Augmentin. 2 sputum for Gram stain and culture requested but not collected 3 patient to continue withZosyn 3.375 g every 12 hours, cannot and Levaquin to Zithromax because of the other medication patient is unable will add doxycycline and see response Time with Patient: Less than 30
--- NOTE | 2021-08-20 22:01 | P.PN ---
Subjective Progress Note Date: 08/20/21 Principal diagnosis: Pneumonia Patient is a 30-year-old female with a past medical history significant for end-stage renal disease on dialysis presented to the hospital w ith a fever of left lower chest pain concerning for pneumonia. On today's evaluation that is 08/20/2021, the patient did spike fever of 101F, the patient chest pain is currently controlled, the patient continued to have a cough but not bringing up any sputum, the patient denies abdominal pain no na usea vomiting or diarrhea Objective - Vital Signs Vital signs: Vital Signs Temp 97.6 F 08/20/21 08:00 Pulse 81 08/20/21 08:00 Resp 16 08/20/21 08:00 BP 176/85 08/20/21 08:00 Pulse Ox 99 08/20/21 08:00 Intake & Output 08/19/21 08/20/21 08/20/21 18:59 06:59 18:59 Intake Total 100 Balance 100 Weight 47.627 kg Intake: Intake, IV Titration 100 Amount Piperacillin-Tazobactam 3 100 .375 gm In Sodium Chloride 0.9% 100 ml @ 25 mls/hr IVPB Q12H [facility] Rx# :[id number] Other: Voiding Method Toilet Diaper Diaper # Voids 0 - Exam GENERAL DESCRIPTION: Middle-age female lying in bed in no distress RESPIRATORY SYSTEM: Unlabored breathing , decreased breath sounds at bases HEART: S1 S2 regular rate and rhythm , ABDOMEN: Soft , no tenderness EXTREMITIES: No edema feet - Labs CBC & Chem 7: 08/20/21 05:45 08/20/21 05:45 Labs: Abnormal Lab Results - Last 24 Hours (Table) 08/19/21 08/19/21 08/19/21 Range/Units 15:04 15:39 17:21 WBC (4.50-10.00) X 10*3/uL RBC (4.10-5.20) X 10*6/uL Hgb (12.0-15.0) g/dL Hct (37.2-46.3) % Neutrophils # (1.80-7.70) X 10*3/uL Lymphocytes # (0.90-5.00) X 10*3/uL Monocytes # (0.20-1.00) X 10*3/uL Eosinophils # (0.04-0.35) X 10*3/uL Sodium (135-145) mmol/L Chloride (96-109) mmol/L Carbon Dioxide (20.0-27.5) mmol/L BUN (9.0-27.0) mg/dL Creatinine (0.6-1.5) mg/dL Est GFR (CKD-EPI)AfAm (60.0-200.0) Est GFR (CKD-EPI)NonAf (60.0-200.0) BUN/Creatinine Ratio (12.00-20.00) Ratio Glucose (70-110) mg/dL POC Glucose (mg/dL) 69 L 69 L 64 L (75-99) mg/dL Calcium (8.7-10.3) mg/dL 08/19/21 08/20/21 08/20/21 Range/Units 20:36 01:26 03:51 WBC (4.50-10.00) X 10*3/uL RBC (4.10-5.20) X 10*6/uL Hgb (12.0-15.0) g/dL Hct (37.2-46.3) % Neutrophils # (1.80-7.70) X 10*3/uL Lymphocytes # (0.90-5.00) X 10*3/uL Monocytes # (0.20-1.00) X 10*3/uL Eosinophils # (0.04-0.35) X 10*3/uL Sodium (135-145) mmol/L Chloride (96-109) mmol/L Carbon Dioxide (20.0-27.5) mmol/L BUN (9.0-27.0) mg/dL Creatinine (0.6-1.5) mg/dL Est GFR (CKD-EPI)AfAm (60.0-200.0) Est GFR (CKD-EPI)NonAf (60.0-200.0) BUN/Creatinine Ratio (12.00-20.00) Ratio Glucose (70-110) mg/dL POC Glucose (mg/dL) 135 H 275 H 379 H (75-99) mg/dL Calcium (8.7-10.3) mg/dL 08/20/21 08/20/21 08/20/21 Range/Units 05:45 05:45 06:50 WBC 1.89 L (4.50-10.00) X 10*3/uL RBC 2.39 L (4.10-5.20) X 10*6/uL Hgb 7.0 L (12.0-15.0) g/dL Hct 21.1 L (37.2-46.3) % Neutrophils # 1.44 L (1.80-7.70) X 10*3/uL Lymphocytes # 0.28 L (0.90-5.00) X 10*3/uL Monocytes # 0.13 L (0.20-1.00) X 10*3/uL Eosinophils # 0.02 L (0.04-0.35) X 10*3/uL Sodium 126 L (135-145) mmol/L Chloride 90 L (96-109) mmol/L Carbon Dioxide 18.9 L (20.0-27.5) mmol/L BUN 43.5 H (9.0-27.0) mg/dL Creatinine 7.2 H* (0.6-1.5) mg/dL Est GFR (CKD-EPI)AfAm 8.0 L (60.0-200.0) Est GFR (CKD-EPI)NonAf 6.9 L (60.0-200.0) BUN/Creatinine Ratio 6.04 L (12.00-20.00) Ratio Glucose 482 H (70-110) mg/dL POC Glucose (mg/dL) 526 H (75-99) mg/dL Calcium 8.1 L (8.7-10.3) mg/dL 08/20/21 Range/Units 11:18 WBC (4.50-10.00) X 10*3/uL RBC (4.10-5.20) X 10*6/uL Hgb (12.0-15.0) g/dL Hct (37.2-46.3) % Neutrophils # (1.80-7.70) X 10*3/uL Lymphocytes # (0.90-5.00) X 10*3/uL Monocytes # (0.20-1.00) X 10*3/uL Eosinophils # (0.04-0.35) X 10*3/uL Sodium (135-145) mmol/L Chloride (96-109) mmol/L Carbon Dioxide (20.0-27.5) mmol/L BUN (9.0-27.0) mg/dL Creatinine (0.6-1.5) mg/dL Est GFR (CKD-EPI)AfAm (60.0-200.0) Est GFR (CKD-EPI)NonAf (60.0-200.0) BUN/Creatinine Ratio (12.00-20.00) Ratio Glucose (70-110) mg/dL POC Glucose (mg/dL) 159 H (75-99) mg/dL Calcium (8.7-10.3) mg/dL Microbiology - Last 24 Hours (Table) 08/19/21 05:54 Blood Culture - Preliminary Blood No Growth after 24 hours 08/15/21 19:08 Blood Culture - Preliminary Blood No Growth after 96 hours 08/15/21 19:10 Blood Culture - Preliminary Blood No Growth after 96 hours Assessment and Plan (1) Sepsis due to pneumonia Current Visit: Yes Status: Acute Code(s): J18.9 - PNEUMONIA, UNSPECIFIED ORGANISM; A41.9 - SEPSIS, UNSPECIFIED ORGANISM SNOMED Code(s): 06477701 Plan: 1patient presented to hospital with fever in this patient also have a left lower rib cage pain which is pleuritic concerning for possible pneumonia and question of possible aspiration etiology recently completed course of oral Augmentin. 2 sputum for Gram stain and culture requested but not collected 3 patient did have persistent fever despite good gram-negative coverage, we will continue the Zosyn however and vancomycin, will check a CT of the chest to make sure that no evidence of any complicating factors such as empyema Time with Patient: Less than 30
[2021-08-21 01:33] LABS: % Iron Saturation 9.05 (12.00-45.00)
[2021-08-21 01:48] LABS: Glucose,Whole Blood 225 mg/dL (75-99)
[2021-08-21] MEDS: HYDROmorphone 1 MG/ML 1 ML SYRINGE IVP PRN ×4 (02:41→20:41)
[2021-08-21 06:31] LABS: Basophils % (A) 1 %; Eosinophils # (A) 0.1 k/uL (0-0.7); Eosinophils % (A) 6 %; HCT 23.1 % (34.0-46.0); HGB 7.8 gm/dL (11.4-16.0); Lymphocytes # (A) 0.5 k/uL (1.0-4.8); Lymphocytes % (A) 29 %; MCHC 33.7 g/dL (31.0-37.0); MCV 91.9 fL (80.0-100.0); Monocytes # (A) 0.1 k/uL (0-1.0); Monocytes % (A) 4 %; Neutrophils % (A) 59 %; Platelet Count 146 k/uL (150-450); RBC 2.51 m/uL (3.80-5.40); RDW 14.1 % (11.5-15.5); WBC 1.6 k/uL (3.8-10.6)
[2021-08-21 06:45] LABS: African American GFR (CKD) 12 (>60 ml/min/1.73 sqM); Anion Gap 14 mmol/L; Blood Urea Nitrogen 33 mg/dL (7-17); Calcium 8.1 mg/dL (8.4-10.2); Carbon Dioxide 20 mmol/L (22-30); Chloride 95 mmol/L (98-107); Glucose 420 mg/dL (74-99); Non-African American GFR(CKD) 11 (>60 ml/min/1.73 sqM); Potassium 4.6 mmol/L (3.5-5.1); Sodium 129 mmol/L (137-145)
[2021-08-21] MEDS: diphenhydrAMINE 50 MG/ML 1 ML VIAL IVP PRN (06:49)
[2021-08-21 07:02] LABS: Glucose,Whole Blood 429 mg/dL (75-99)
[2021-08-21] MEDS: INSULIN DETEMIR (LEVEMIR) 100 UNIT/ML SYR SQ SCH (08:24)
[2021-08-21] MEDS: ESCITALOPRAM 20 MG TAB PO SCH (08:25)
[2021-08-21] MEDS: carvediloL 12.5 MG TAB PO SCH ×2 (08:25→17:05)
[2021-08-21] MEDS: ASPIRIN 81 MG PO SCH (08:26)
[2021-08-21] MEDS: PANTOPRAZOLE 40 MG TABLET PO SCH ×2 (08:26→20:25)
[2021-08-21] MEDS: minoxidiL 2.5 MG TAB PO SCH ×2 (08:26→21:50)
[2021-08-21] MEDS: cloNIDine HCL 0.1 MG TAB PO SCH ×3 (08:26→21:49)
[2021-08-21] MEDS: HEPARIN SODIUM,PORCINE/PF 5,000 UNIT/0.5 ML SYRINGE SQ SCH ×3 (08:27→21:55)
[2021-08-21] MEDS: SEVELAMER 800 MG TAB PO SCH ×3 (08:28→17:05)
[2021-08-21] MEDS: INSULIN ASPART (NovoLOG) 100 UNIT/ML VIAL SQ SCH ×4 (08:29→21:30)
[2021-08-21] MEDS: PIPERACILLIN-TAZOBACTAM 3.375 GM in SODIUM CHLORIDE 0.9% 100 ML IVPB SCH ×2 (10:10→21:51)
--- NOTE | 2021-08-21 10:36 | P.PN ---
Subjective Progress Note Date: 08/21/21 Principal diagnosis: This is a 30-year-old female with ESRD on dialysis Monday who came in because of fever and had pneumonia. She has type 1 diabetes with multiple complications Currently she is afebrile cough has improved. No nausea vomiting diarrhea appetite is improving. T-max was 100.5 as of yesterday evening. Blood pressure in the 160-185 Of concern is her white count that has gone down to 1600, from 10,400 dated 08/15/2021, hemoglobin went down from 9-7.8, platelet count was 2 23,000 and is down to 146,000 Objective - Vital Signs Vital signs: Vital Signs Temp 98.5 F 08/21/21 07:42 Pulse 76 08/21/21 07:42 Resp 18 08/21/21 08:00 BP 164/84 08/21/21 07:42 Pulse Ox 100 08/21/21 07:42 Intake & Output 08/20/21 08/21/21 08/21/21 18:59 06:59 18:59 Intake Total 720 Output Total 4000 4000 Balance -3280 -4000 Intake: Oral 720 Output: Hemodialysis 4000 4000 Other: Voiding Method Diaper Diaper Diaper # Voids 3 0 Examination awake alert oriented somewhat weak and tired Lungs are clear to auscultation with some crackles on the left base good air entry bilaterally Heart sounds, remarkable for Grade 1 systolic ejection murmur. Abdomen soft nontender Extremity exam reveals no edema Neurologically awake alert oriented - Labs CBC & Chem 7: 08/21/21 06:08 08/21/21 06:08 Labs: Abnormal Lab Results - Last 24 Hours (Table) 08/20/21 08/20/21 08/20/21 Range/Units 11:18 16:14 18:06 WBC (3.8-10.6) k/uL RBC (3.80-5.40) m/uL Hgb (11.4-16.0) gm/dL Hct (34.0-46.0) % Plt Count (150-450) k/uL Neutrophils # (1.3-7.7) k/uL Lymphocytes # (1.0-4.8) k/uL Sodium (137-145) mmol/L Chloride (98-107) mmol/L Carbon Dioxide (22-30) mmol/L BUN (7-17) mg/dL Creatinine (0.52-1.04) mg/dL Glucose (74-99) mg/dL POC Glucose (mg/dL) 159 H 39 L (75-99) mg/dL Calcium (8.4-10.2) mg/dL Iron 19 L (50-170) ug/dL TIBC 204 L (228-460) ug/dL % Saturation 9.05 L (12.00-45.00) Transferrin 146.0 L (204.0-354.0) mg/dL 08/20/21 08/21/21 08/21/21 Range/Units 20:07 01:41 06:08 WBC 1.6 L (3.8-10.6) k/uL RBC 2.51 L (3.80-5.40) m/uL Hgb 7.8 L (11.4-16.0) gm/dL Hct 23.1 L (34.0-46.0) % Plt Count 146 L (150-450) k/uL Neutrophils # 1.0 L (1.3-7.7) k/uL Lymphocytes # 0.5 L (1.0-4.8) k/uL Sodium (137-145) mmol/L Chloride (98-107) mmol/L Carbon Dioxide (22-30) mmol/L BUN (7-17) mg/dL Creatinine (0.52-1.04) mg/dL Glucose (74-99) mg/dL POC Glucose (mg/dL) 307 H 225 H (75-99) mg/dL Calcium (8.4-10.2) mg/dL Iron (50-170) ug/dL TIBC (228-460) ug/dL % Saturation (12.00-45.00) Transferrin (204.0-354.0) mg/dL 08/21/21 08/21/21 Range/Units 06:08 07:00 WBC (3.8-10.6) k/uL RBC (3.80-5.40) m/uL Hgb (11.4-16.0) gm/dL Hct (34.0-46.0) % Plt Count (150-450) k/uL Neutrophils # (1.3-7.7) k/uL Lymphocytes # (1.0-4.8) k/uL Sodium 129 L (137-145) mmol/L Chloride 95 L (98-107) mmol/L Carbon Dioxide 20 L (22-30) mmol/L BUN 33 H (7-17) mg/dL Creatinine 5.10 H (0.52-1.04) mg/dL Glucose 420 H (74-99) mg/dL POC Glucose (mg/dL) 429 H (75-99) mg/dL Calcium 8.1 L (8.4-10.2) mg/dL Iron (50-170) ug/dL TIBC (228-460) ug/dL % Saturation (12.00-45.00) Transferrin (204.0-354.0) mg/dL Microbiology - Last 24 Hours (Table) 08/19/21 05:54 Blood Culture - Preliminary Blood No Growth after 48 hours 08/15/21 19:08 Blood Culture - Preliminary Blood No Growth after 120 hours 08/15/21 19:10 Blood Culture - Preliminary Blood No Growth after 120 hours Assessment and Plan Assessment: Impression 1. ESRD on dialysis Monday 2. Pneumonia improving. 3. Diabetes mellitus type 1 3. Pancytopenia cause not very clear possible related to sepsis although her blood cultures are negative. Recommendation 1. Will continue dialysis on a Monday schedule 2. Repeat CBC and follow up
--- NOTE | 2021-08-21 11:07 | CT ---
EXAMINATION TYPE: CT chest wo con CT DLP: 212.1 mGycm, Automated exposure control for dose reduction was used. DATE OF EXAM: 08/21/2021 10:52 AM COMPARISON: Chest radiograph 08/19/2021 CLINICAL INDICATION:Female, 30 years old with history of Pneumonia rule out empyema, Cough, infection of unknown origin, pneumonia rule out empyema TECHNIQUE: Multiple axial images were obtained through the chest without IV contrast. Lack of IV or o ral contrast limits evaluation of solid and hollow organ viscera. FINDINGS: LUNGS/ PLEURA: Right pleural effusion has now resolved. There remains patchy groundglass opacities th roughout the lungs. No evidence of pneumothorax or left pleural effusion. AIRWAY: Patent and unremarkable.. HEART: Size within normal limits similar small pericardial effusion MEDIASTINUM: No gross evidence of adenopathy. VASCULATURE: No aortic aneurysm. MUSCULOSKELETAL: No acute osseous abnormalities SOFT TISSUES/LYMPH NODES: Unremarkable. LOWER NECK: No significant findings. UPPER ABDOMEN: Cholecystectomy clips. Arteriosclerosis of the arterial vasculature. IMPRESSION: 1. Resolution of prior right pleural effusion (no evidence of empyema). 2. Multifocal pneumonia. 3. Redemonstration of small pericardial effusion.
[2021-08-21 11:27] LABS: Glucose,Whole Blood 104 mg/dL (75-99)
[2021-08-21] MEDS: HYDROcodone/APAP 5-325MG 1 EACH TAB PO PRN (11:28)
[2021-08-21] MEDS ORDERED: VANCOMYCIN 750 MG in SODIUM CHLORIDE 0.9% 250 ML IVPB ONE (12:00)
--- NOTE | 2021-08-21 16:40 | PN ---
PROGRESS NOTE DATE OF SERVICE: 08/21/2021 This 30-year-old woman who was admitted with possible sepsis from pneumonia is being closely monitored. Patient is still complaining of tiredness and weakness. A chest CT was done today which I reviewed personally. It showed multifocal pneumonia. The cultures are negative so far. Patient is on broad-spectrum IV antibiotics. Past medical history reviewed. REVIEW OF SYSTEMS: Fourteen-point review of systems negative except as mentioned earlier. MEDICATIONS: Reviewed. See list. Doses are reviewed. PHYSICAL EXAMINATION: Pulse is 76, blood pressure 165/48, respiration 16. HEENT: Conjunctivae normal. NECK: No jugular venous distention. CARDIOVASCULAR: S1, S2 muffled. RESPIRATION: Breath sounds diminished at the bases. A few scattered rhonchi and crackles. ABDOMEN: Soft, nontender. NERVOUS SYSTEM: Diffusely weak. LABS: WBC ntd, hemoglobin ntd. Other labs are noted. ASSESSMENT: 1. Sepsis secondary to bilateral interstitial multifocal pneumonia. 2. End-stage renal disease, on hemodialysis. 3. Hyponatremia. 4. Diabetes mellitus, type 1. 5. Pleuritic chest pains. RECOMMENDATIONS AND DISCUSSION: I recommend to continue current medications, continue with the monitoring, symptomatic treatment. Otherwise at this time I recommend continuing with the broad- spectrum IV antibiotics. Continue with infectious disease evaluation. Prognosis guarded. Further recommendations to follow. See orders for details. MMODL / IJN: [id number] / MTDD
[2021-08-21 16:46] LABS: Glucose,Whole Blood 32 mg/dL (75-99)
[2021-08-21 16:57] LABS: Glucose,Whole Blood 30 mg/dL (75-99)
[2021-08-21] MEDS: DEXTROSE 50% SYRINGE 50 ML IVP ONE (16:58)
[2021-08-21 17:13] LABS: Glucose,Whole Blood 82 mg/dL (75-99)
[2021-08-21] MEDS: BENZONATATE 100 MG CAP PO PRN (17:45)
[2021-08-21 18:23] LABS: Glucose,Whole Blood 63 mg/dL (75-99)
[2021-08-21 18:58] LABS: Glucose,Whole Blood 65 mg/dL (75-99)
[2021-08-21 19:19] LABS: Glucose,Whole Blood 77 mg/dL (75-99)
[2021-08-21 20:19] LABS: Glucose,Whole Blood 105 mg/dL (75-99)
[2021-08-21] MEDS: ISOSORBIDE MONONITRATE ER 30 MG TAB.ER.24H PO SCH (20:26)
[2021-08-21] MEDS: MELATONIN 5 MG TABLET PO PRN (20:41)
--- NOTE | 2021-08-21 22:18 | P.PN ---
Subjective Progress Note Date: 08/21/21 Principal diagnosis: Pneumonia Patient is a 30-year-old female with a past medical history significant for end-stage renal disease on dialysis presented to the hospital w ith a fever of left lower chest pain concerning for pneumonia. On today's evaluation that is 08/21/2021, the patient fever pattern has improved with the T-max 100.5F, the patient chest pain is currently controlled, the patient cough is decreased intensity and did not bring up any sputum no nausea n o vomiting no abdominal pain no diarrhea Objective - Vital Signs Vital signs: Vital Signs Temp 98.5 F 08/21/21 07:42 Pulse 76 08/21/21 07:42 Resp 18 08/21/21 08:00 BP 164/84 08/21/21 07:42 Pulse Ox 100 08/21/21 07:42 Intake & Output 08/20/21 08/21/21 08/21/21 18:59 06:59 18:59 Intake Total 720 Output Total 4000 4000 Balance -3280 -4000 Intake: Oral 720 Output: Hemodialysis 4000 4000 Other: Voiding Method Diaper Diaper Diaper # Voids 3 0 - Exam GENERAL DESCRIPTION: Middle-age female lying in bed in no distress RESPIRATORY SYSTEM: Unlabored breathing , decreased breath sounds at bases HEART: S1 S2 regular rate and rhythm , ABDOMEN: Soft , no tenderness EXTREMITIES: No edema feet - Labs CBC & Chem 7: 08/21/21 06:08 08/21/21 06:08 Labs: Abnormal Lab Results - Last 24 Hours (Table) 08/20/21 08/20/21 08/20/21 Range/Units 11:18 16:14 18:06 WBC (3.8-10.6) k/uL RBC (3.80-5.40) m/uL Hgb (11.4-16.0) gm/dL Hct (34.0-46.0) % Plt Count (150-450) k/uL Neutrophils # (1.3-7.7) k/uL Lymphocytes # (1.0-4.8) k/uL Sodium (137-145) mmol/L Chloride (98-107) mmol/L Carbon Dioxide (22-30) mmol/L BUN (7-17) mg/dL Creatinine (0.52-1.04) mg/dL Glucose (74-99) mg/dL POC Glucose (mg/dL) 159 H 39 L (75-99) mg/dL Calcium (8.4-10.2) mg/dL Iron 19 L (50-170) ug/dL TIBC 204 L (228-460) ug/dL % Saturation 9.05 L (12.00-45.00) Transferrin 146.0 L (204.0-354.0) mg/dL 08/20/21 08/21/21 08/21/21 Range/Units 20:07 01:41 06:08 WBC 1.6 L (3.8-10.6) k/uL RBC 2.51 L (3.80-5.40) m/uL Hgb 7.8 L (11.4-16.0) gm/dL Hct 23.1 L (34.0-46.0) % Plt Count 146 L (150-450) k/uL Neutrophils # 1.0 L (1.3-7.7) k/uL Lymphocytes # 0.5 L (1.0-4.8) k/uL Sodium (137-145) mmol/L Chloride (98-107) mmol/L Carbon Dioxide (22-30) mmol/L BUN (7-17) mg/dL Creatinine (0.52-1.04) mg/dL Glucose (74-99) mg/dL POC Glucose (mg/dL) 307 H 225 H (75-99) mg/dL Calcium (8.4-10.2) mg/dL Iron (50-170) ug/dL TIBC (228-460) ug/dL % Saturation (12.00-45.00) Transferrin (204.0-354.0) mg/dL 08/21/21 08/21/21 Range/Units 06:08 07:00 WBC (3.8-10.6) k/uL RBC (3.80-5.40) m/uL Hgb (11.4-16.0) gm/dL Hct (34.0-46.0) % Plt Count (150-450) k/uL Neutrophils # (1.3-7.7) k/uL Lymphocytes # (1.0-4.8) k/uL Sodium 129 L (137-145) mmol/L Chloride 95 L (98-107) mmol/L Carbon Dioxide 20 L (22-30) mmol/L BUN 33 H (7-17) mg/dL Creatinine 5.10 H (0.52-1.04) mg/dL Glucose 420 H (74-99) mg/dL POC Glucose (mg/dL) 429 H (75-99) mg/dL Calcium 8.1 L (8.4-10.2) mg/dL Iron (50-170) ug/dL TIBC (228-460) ug/dL % Saturation (12.00-45.00) Transferrin (204.0-354.0) mg/dL Microbiology - Last 24 Hours (Table) 08/19/21 05:54 Blood Culture - Preliminary Blood No Growth after 48 hours 08/15/21 19:08 Blood Culture - Preliminary Blood No Growth after 120 hours 08/15/21 19:10 Blood Culture - Preliminary Blood No Growth after 120 hours Assessment and Plan (1) Sepsis due to pneumonia Current Visit: Yes Status: Acute Code(s): J18.9 - PNEUMONIA, UNSPECIFIED ORGANISM; A41.9 - SEPSIS, UNSPECIFIED ORGANISM SNOMED Code(s): 86304733 Plan: 1patient presented to hospital with fever in this patient also have a left lower rib cage pain which is pleuritic concerning for possible pneumonia and question of possible aspiration etiology recently completed course of oral Augmentin. 2 sputum for Gram stain and culture requested but not collected 3 patient fever pattern has improved with the addition of vancomycin to continue we will wait for the CT of the chest reported to be finalize, father at the bedside questions were answered Time with Patient: Less than 30
[2021-08-22] MEDS: BENZONATATE 100 MG CAP PO PRN (00:12)
[2021-08-22] MEDS: HYDROmorphone 1 MG/ML 1 ML SYRINGE IVP PRN ×7 (00:12→23:39)
[2021-08-22 01:45] LABS: Glucose,Whole Blood 305 mg/dL (75-99)
[2021-08-22 07:13] LABS: Glucose,Whole Blood >600 mg/dL (75-99)
[2021-08-22] MEDS: INSULIN ASPART (NovoLOG) 100 UNIT/ML VIAL SQ SCH ×4 (07:32→20:07)
[2021-08-22] MEDS: INSULIN DETEMIR (LEVEMIR) 100 UNIT/ML SYR SQ SCH (07:32)
[2021-08-22 07:33] LABS: Glucose,Whole Blood >600 mg/dL (75-99)
[2021-08-22] MEDS: ESCITALOPRAM 20 MG TAB PO SCH (07:35)
[2021-08-22] MEDS: carvediloL 12.5 MG TAB PO SCH ×2 (07:35→17:18)
[2021-08-22] MEDS: ASPIRIN 81 MG PO SCH (07:35)
[2021-08-22] MEDS: cloNIDine HCL 0.1 MG TAB PO SCH ×3 (07:35→20:16)
[2021-08-22] MEDS: PANTOPRAZOLE 40 MG TABLET PO SCH ×2 (07:35→20:16)
[2021-08-22] MEDS: HEPARIN SODIUM,PORCINE/PF 5,000 UNIT/0.5 ML SYRINGE SQ SCH ×2 (07:35→20:19)
[2021-08-22] MEDS: ERGOCALCIFEROL 1,250 MCG (50,000 IU) CAPSULE PO SCH (07:36)
[2021-08-22] MEDS: minoxidiL 2.5 MG TAB PO SCH ×2 (07:36→20:16)
[2021-08-22] MEDS: SEVELAMER 800 MG TAB PO SCH ×3 (07:36→17:19)
--- NOTE | 2021-08-22 09:25 | P.PN ---
Subjective Progress Note Date: 08/22/21 Principal diagnosis: This is a 30-year-old female with ESRD on dialysis Monday who came in because of fever and had pneumonia. She has type 1 diabetes with multiple complications Currently she is afebrile cough has improved. No nausea vomiting diarrhea appetite is improving. She has been afebrile since before yesterday T-max was 100.5 as of day before yesterday evening. Blood pressure in the 150-194/90 Of concern is her white count that has gone down to 1600, from 10,400 dated 08/15/2021, hemoglobin went down from 9-7.8, platelet count was 2 23,000 and is down to 146,000 A computed tomography scan of the chest yesterday shows resolution of prior ri ght pleural effusion, multifocal pneumonia and small pericardial effusion Objective - Vital Signs Vital signs: Vital Signs Temp 98.5 F 08/22/21 01:50 Pulse 74 08/22/21 01:50 Resp 16 08/22/21 07:45 BP 152/78 08/22/21 04:39 Pulse Ox 100 08/22/21 01:50 Intake & Output 08/21/21 08/22/21 08/22/21 18:59 06:59 18:59 Intake Total 200 Output Total 4000 Balance -3800 Intake: Oral 200 Output: Hemodialysis 4000 Other: Voiding Method Diaper Diaper Diaper # Voids 0 0 # Bowel Movements 1 On examination is awake alert oriented She is legally blind Lungs are clear to auscultation fair air entry bilaterally Heart sounds unremarkable for any murmur rub gallop Abdomen is soft nontender slightly protuberant Extremity exam was no edema Neurologically awake alert oriented. She has mild epistaxis - Labs CBC & Chem 7: 08/21/21 06:08 08/21/21 06:08 Labs: Abnormal Lab Results - Last 24 Hours (Table) 08/21/21 08/21/21 08/21/21 Range/Units 11:26 16:45 16:56 POC Glucose (mg/dL) 104 H 32 L 30 L (75-99) mg/dL 08/21/21 08/21/21 08/21/21 Range/Units 18:21 18:56 20:18 POC Glucose (mg/dL) 63 L 65 L 105 H (75-99) mg/dL 08/22/21 08/22/21 08/22/21 Range/Units 01:43 07:10 07:21 POC Glucose (mg/dL) 305 H >600 H >600 H (75-99) mg/dL Microbiology - Last 24 Hours (Table) 08/19/21 05:54 Blood Culture - Preliminary Blood No Growth after 72 hours 08/15/21 19:08 Blood Culture - Final Blood No Growth after 144 hours 08/15/21 19:10 Blood Culture - Final Blood No Growth after 144 hours Assessment and Plan Assessment: Impression 1. ESRD on dialysis Monday 2. Pneumonia improving. Computed tomography scan showed further improvement as mentioned above 3. Diabetes mellitus type 1, poorly controlled labile this morning blood sugars greater than 600 3. Pancytopenia cause not very clear possible related to sepsis although her blood cultures are negative. 5. Iron deficiency anemia saturation is 9% dated 08/20/2021 and hemoglobin is 7.8. 6. hypertension not controlled, currently on minoxidil 2.5 twice a day, Isordil, clonidine 0.3 3 times a day and With a long 25 mg twice a day Recommendation 1. Will continue dialysis on a Monday schedule 2. IV Ferrlecit 125 mg daily for 3 doses 3. Repeat CBC and follow up 4. If tolerated will increase her ultrafiltration to improve her blood pressure on Monday 5. The meantime will add lisinopril 10 mg at bedtime
[2021-08-22] MEDS: SODIUM FERRIC GLUCONAT-SUCROSE 125 MG in SODIUM CHLORIDE 0.9% 100 ML IVPB SCH (10:40)
[2021-08-22] MEDS: lisinopriL 10 MG TAB PO SCH (10:40)
[2021-08-22 11:48] LABS: Glucose,Whole Blood >600 mg/dL (75-99)
[2021-08-22] MEDS ORDERED: INSULIN REGULAR 100 UNIT/ML VIAL (IM/SQ) SQ ONE (12:15)
[2021-08-22] MEDS: PIPERACILLIN-TAZOBACTAM 3.375 GM in SODIUM CHLORIDE 0.9% 100 ML IVPB SCH ×2 (12:26→22:21)
[2021-08-22 12:32] LABS: Basophils % (A) 0 %; Eosinophils # (A) 0.1 k/uL (0-0.7); Eosinophils % (A) 5 %; HCT 23.8 % (34.0-46.0); HGB 7.9 gm/dL (11.4-16.0); Hypochromasia Slight; Lymphocytes # (A) 0.5 k/uL (1.0-4.8); Lymphocytes % (A) 19 %; MCH 30.8 pg (25.0-35.0); MCV 93.1 fL (80.0-100.0); Mean Platelet Volume 9.5; Monocytes # (A) 0.1 k/uL (0-1.0); Monocytes % (A) 5 %; Neutrophils # (A) 1.7 k/uL (1.3-7.7); Neutrophils % (A) 69 %; Platelet Count 173 k/uL (150-450); RBC 2.56 m/uL (3.80-5.40); RDW 14.5 % (11.5-15.5); WBC 2.4 k/uL (3.8-10.6)
[2021-08-22 13:57] LABS: Glucose,Whole Blood 520 mg/dL (75-99)
[2021-08-22 14:39] LABS: Glucose,Whole Blood 436 mg/dL (75-99)
[2021-08-22 15:08] LABS: African American GFR (CKD) 11 (>60 ml/min/1.73 sqM); Anion Gap 13 mmol/L; Blood Urea Nitrogen 45 mg/dL (7-17); Calcium 7.8 mg/dL (8.4-10.2); Carbon Dioxide 21 mmol/L (22-30); Chloride 95 mmol/L (98-107); Glucose 473 mg/dL (74-99); Non-African American GFR(CKD) 9 (>60 ml/min/1.73 sqM); Potassium 4.4 mmol/L (3.5-5.1); Sodium 129 mmol/L (137-145)
[2021-08-22] MEDS ORDERED: INSULIN REGULAR 100 UNIT in SODIUM CHLORIDE 0.9% 100 ML IV SCH (15:15)
[2021-08-22 15:35] LABS: Glucose,Whole Blood 310 mg/dL (75-99)
[2021-08-22 16:37] LABS: Glucose,Whole Blood 215 mg/dL (75-99)
[2021-08-22 16:45] LABS: Glucose,Whole Blood 190 mg/dL (75-99)
--- NOTE | 2021-08-22 17:45 | PN ---
PROGRESS NOTE DATE OF SERVICE: 08/22/2021 This 30-year-old woman who was admitted with sepsis secondary to possibly multifocal pneumonia is being closely monitored. Patient is on hemodialysis. The patient is slightly drowsy at this time. Patient's blood sugars are fluctuating. Currently it is more than 600. Despite additional insulin, the blood sugars remained elevated more than 600, per staff. Past medical history reviewed. REVIEW OF SYSTEMS: Fourteen-point review of systems negative except as mentioned earlier. Currently complains of significant generalized weakness. MEDICATIONS: Reviewed. See list. They include Agra, Ventolin. Doses and other medications are reviewed. PHYSICAL EXAMINATION: Pulse is 81, blood pressure 140/77, respiration 18. CHEST: Fine bilateral scattered rhonchi and crackles. CARDIOVASCULAR: S1, S2 muffled. ABDOMEN: Soft, nontender. NERVOUS SYSTEM: Diffusely weak. LABS: Reviewed. Hemoglobin 7.9. Blood sugars are noted. ASSESSMENT: 1. Sepsis secondary to bilateral interstitial multifocal pneumonia, possibly Gram- negative. 2. End-stage renal disease, on hemodialysis. 3. Diabetes mellitus, type 1, brittle, with hyperglycemia. 4. Hyponatremia. 5. Pleuritic chest pain. RECOMMENDATIONS AND DISCUSSION: I recommend to continue current medications, continue with the monitoring, symptomatic treatment. I would also recommend a BNP to rule out the possibility of any acidosis. Otherwise, I would also recommend extra doses of insulin; the blood sugars are not coming down. Recommend starting insulin drip slowly. Insulin drip may be titrated off the blood sugars are reaching around 300 if the patient is not acidotic. Detailed instructions were given to the staff nurse. Prognosis extremely guarded because of multiple complex medical issues. Discussed with the patient. Further recommendations to follow. MMODL / IJN: [id number] / [facility]
[2021-08-22 18:58] LABS: Glucose,Whole Blood 45 mg/dL (75-99)
[2021-08-22 19:25] LABS: Glucose,Whole Blood 29 mg/dL (75-99)
[2021-08-22] MEDS ORDERED: DEXTROSE 50% SYRINGE 50 ML IVP STA (19:26)
[2021-08-22] MEDS: DEXTROSE 50% SYRINGE 50 ML IVP ONE (19:36)
[2021-08-22 20:02] LABS: Glucose,Whole Blood 73 mg/dL (75-99)
[2021-08-22] MEDS: ISOSORBIDE MONONITRATE ER 30 MG TAB.ER.24H PO SCH (20:16)
[2021-08-22 22:17] LABS: Glucose,Whole Blood 62 mg/dL (75-99)
[2021-08-22] MEDS: MELATONIN 5 MG TABLET PO PRN (22:18)
[2021-08-22] MEDS: HYDROcodone/APAP 5-325MG 1 EACH TAB PO PRN (22:20)
--- NOTE | 2021-08-22 22:49 | P.PN ---
Subjective Progress Note Date: 08/22/21 Principal diagnosis: Pneumonia Patient is a 30-year-old female with a past medical history significant for end-stage renal disease on dialysis presented to the hospital w ith a fever of left lower chest pain concerning for pneumonia. On today's evaluation that is 08/22/2021, the patient is afebrile, the patient chest pain is currently controlled, the patient cough has decreased in intensity and dry in nature, the patient denies any abdominal pain no nausea no vomiting or diarrhea Objective - Vital Signs Vital signs: Vital Signs Temp 98.7 F 08/22/21 14:00 Pulse 71 08/22/21 14:00 Resp 17 08/22/21 14:00 BP 182/87 08/22/21 14:00 Pulse Ox 100 08/22/21 14:00 Intake & Output 08/21/21 08/22/21 08/22/21 18:59 06:59 18:59 Intake Total 200 Output Total 4000 Balance -3800 Intake: Oral 200 Output: Hemodialysis 4000 Other: Voiding Method Diaper Diaper Diaper # Voids 0 0 # Bowel Movements 1 1 - Exam GENERAL DESCRIPTION: Middle-age female lying in bed in no distress RESPIRATORY SYSTEM: Unlabored breathing , decreased breath sounds at bases HEART: S1 S2 regular rate and rhythm , ABDOMEN: Soft , no tenderness EXTREMITIES: No edema feet - Labs CBC & Chem 7: 08/22/21 12:07 08/22/21 14:15 Labs: Abnormal Lab Results - Last 24 Hours (Table) 08/21/21 08/21/21 08/21/21 Range/Units 16:45 16:56 18:21 WBC (3.8-10.6) k/uL RBC (3.80-5.40) m/uL Hgb (11.4-16.0) gm/dL Hct (34.0-46.0) % Lymphocytes # (1.0-4.8) k/uL POC Glucose (mg/dL) 32 L 30 L 63 L (75-99) mg/dL 08/21/21 08/21/21 08/22/21 Range/Units 18:56 20:18 01:43 WBC (3.8-10.6) k/uL RBC (3.80-5.40) m/uL Hgb (11.4-16.0) gm/dL Hct (34.0-46.0) % Lymphocytes # (1.0-4.8) k/uL POC Glucose (mg/dL) 65 L 105 H 305 H (75-99) mg/dL 08/22/21 08/22/21 08/22/21 Range/Units 07:10 07:21 11:45 WBC (3.8-10.6) k/uL RBC (3.80-5.40) m/uL Hgb (11.4-16.0) gm/dL Hct (34.0-46.0) % Lymphocytes # (1.0-4.8) k/uL POC Glucose (mg/dL) >600 H >600 H >600 H (75-99) mg/dL 08/22/21 08/22/21 08/22/21 Range/Units 12:07 13:55 14:33 WBC 2.4 L (3.8-10.6) k/uL RBC 2.56 L (3.80-5.40) m/uL Hgb 7.9 L (11.4-16.0) gm/dL Hct 23.8 L (34.0-46.0) % Lymphocytes # 0.5 L (1.0-4.8) k/uL POC Glucose (mg/dL) 520 H 436 H (75-99) mg/dL Microbiology - Last 24 Hours (Table) 08/19/21 05:54 Blood Culture - Preliminary Blood No Growth after 72 hours 08/15/21 19:08 Blood Culture - Final Blood No Growth after 144 hours 08/15/21 19:10 Blood Culture - Final Blood No Growth after 144 hours Assessment and Plan (1) Sepsis due to pneumonia Current Visit: Yes Status: Acute Code(s): J18.9 - PNEUMONIA, UNSPECIFIED ORGANISM; A41.9 - SEPSIS, UNSPECIFIED ORGANISM SNOMED Code(s): 03964147 Plan: 1patient presented to hospital with fever in this patient also have a left lower rib cage pain which is pleuritic concerning for possible pneumonia and question of possible aspiration etiology recently completed course of oral Augmentin. 2 sputum for Gram stain and culture requested but not collected 3 patient fever pattern has improved with the addition of vancomycin which will be continued through dialysis for 10 days on discharge to finish her course of therapy Time with Patient: Less than 30
[2021-08-22 22:53] LABS: Glucose,Whole Blood 101 mg/dL (75-99)
[2021-08-23 01:40] LABS: Glucose,Whole Blood 225 mg/dL (75-99)
[2021-08-23] MEDS: HYDROmorphone 1 MG/ML 1 ML SYRINGE IVP PRN ×5 (03:13→22:37)
[2021-08-23 07:13] LABS: Glucose,Whole Blood 571 mg/dL (75-99)
[2021-08-23] MEDS: lisinopriL 10 MG TAB PO SCH (07:26)
[2021-08-23] MEDS: HEPARIN SODIUM,PORCINE/PF 5,000 UNIT/0.5 ML SYRINGE SQ SCH ×3 (07:26→20:53)
[2021-08-23] MEDS: carvediloL 12.5 MG TAB PO SCH ×2 (07:27→15:46)
[2021-08-23] MEDS: cloNIDine HCL 0.1 MG TAB PO SCH ×4 (07:27→22:26)
[2021-08-23] MEDS: ASPIRIN 81 MG PO SCH (07:28)
[2021-08-23] MEDS: ESCITALOPRAM 20 MG TAB PO SCH (07:28)
[2021-08-23] MEDS: PANTOPRAZOLE 40 MG TABLET PO SCH ×2 (07:28→20:59)
[2021-08-23] MEDS: INSULIN DETEMIR (LEVEMIR) 100 UNIT/ML SYR SQ SCH (07:29)
[2021-08-23] MEDS: INSULIN ASPART (NovoLOG) 100 UNIT/ML VIAL SQ SCH ×4 (07:29→20:53)
[2021-08-23] MEDS: SEVELAMER 800 MG TAB PO SCH ×3 (07:30→17:06)
[2021-08-23] MEDS: minoxidiL 2.5 MG TAB PO SCH ×3 (07:30→22:27)
[2021-08-23 08:40] LABS: HCT 23.4 % (37.2-46.3); HGB 7.6 g/dL (12.0-15.0); MCH 29.2 pg (27.0-32.0); MCHC 32.5 g/dL (32.0-37.0); NRBC Per 100 WBC 0 /100 WBCS (0.0-0.0); Platelet Count 189 X 10*3/uL (140-440); RDW 13.3 % (11.5-14.5); WBC 2.08 X 10*3/uL (4.50-10.00)
[2021-08-23] MEDS: SODIUM FERRIC GLUCONAT-SUCROSE 125 MG in SODIUM CHLORIDE 0.9% 100 ML IVPB SCH (09:06)
[2021-08-23 09:29] LABS: Albumin 3.5 g/dL (3.8-4.9); Albumin/Globulin Ratio 1.52 (1.60-3.17); Anion Gap 19.5 mmol/L (10.00-18.00); Calcium 8.3 mg/dL (8.7-10.3); Carbon Dioxide 17.5 mmol/L (20.0-27.5); Globulin 2.3 g/dL (1.6-3.3); Non-African American GFR(CKD) 7.8 (60.0-200.0); Potassium 5.5 mmol/L (3.5-5.5); Total Bilirubin 0.2 mg/dL (0.30-1.20); Total Protein 5.8 g/dL (6.2-8.2)
[2021-08-23 10:01] LABS: Glucose,Whole Blood 485 mg/dL (75-99)
[2021-08-23] MEDS: PIPERACILLIN-TAZOBACTAM 3.375 GM in SODIUM CHLORIDE 0.9% 100 ML IVPB SCH ×2 (10:49→22:27)
[2021-08-23] MEDS: HYDROcodone/APAP 5-325MG 1 EACH TAB PO PRN (10:59)
[2021-08-23] MEDS: BENZONATATE 100 MG CAP PO PRN (11:00)
--- NOTE | 2021-08-23 11:12 | P.PN ---
Subjective Patient is seen in follow-up for end-stage renal disease. She is maintained on hemodialysis on Monday schedule. Had a treatment on Monday with 4 L removed. Denies chest pain or shortness of breath. On room air. Blood pressure was high this morning but improved after she got her medications. No vomiting or diarrhea. Vital signs are stable. General: Awake. HEENT: Head exam is unremarkable. LUNGS: Breath sounds decreased. HEART: Rate and Rhythm are regular. ABDOMEN: Soft, no distention. EXTREMITITES: No edema. Objective - Vital Signs Vital signs: Vital Signs Temp 98.3 F 08/23/21 07:29 Pulse 82 08/23/21 07:29 Resp 18 08/23/21 07:41 BP 155/75 08/23/21 10:02 Pulse Ox 100 08/23/21 07:29 Intake & Output 08/22/21 08/23/21 08/23/21 18:59 06:59 18:59 Intake Total 100 Balance 100 Intake: Oral 100 Other: Voiding Method Diaper Diaper Diaper # Voids 1 # Bowel Movements 3 - Labs CBC & Chem 7: 08/23/21 04:48 08/23/21 04:48 Labs: Abnormal Lab Results - Last 24 Hours (Table) 08/22/21 08/22/21 08/22/21 Range/Units 11:45 12:07 13:55 WBC 2.4 L (3.8-10.6) k/uL RBC 2.56 L (3.80-5.40) m/uL Hgb 7.9 L (11.4-16.0) gm/dL Hct 23.8 L (34.0-46.0) % Lymphocytes # 0.5 L (1.0-4.8) k/uL Sodium (137-145) mmol/L Chloride (98-107) mmol/L Carbon Dioxide (22-30) mmol/L Anion Gap (10.00-18.00) mmol/L BUN (7-17) mg/dL Creatinine (0.52-1.04) mg/dL Est GFR (CKD-EPI)AfAm (60.0-200.0) Est GFR (CKD-EPI)NonAf (60.0-200.0) BUN/Creatinine Ratio (12.00-20.00) Ratio Glucose (74-99) mg/dL POC Glucose (mg/dL) >600 H 520 H (75-99) mg/dL Calcium (8.4-10.2) mg/dL Total Bilirubin (0.30-1.20) mg/dL AST (13-35) U/L ALT (8-44) U/L Alkaline Phosphatase (41-126) U/L Total Protein (6.2-8.2) g/dL Albumin (3.8-4.9) g/dL Albumin/Globulin Ratio (1.60-3.17) g/dL 08/22/21 08/22/21 08/22/21 Range/Units 14:15 14:33 15:32 WBC (3.8-10.6) k/uL RBC (3.80-5.40) m/uL Hgb (11.4-16.0) gm/dL Hct (34.0-46.0) % Lymphocytes # (1.0-4.8) k/uL Sodium 129 L (137-145) mmol/L Chloride 95 L (98-107) mmol/L Carbon Dioxide 21 L (22-30) mmol/L Anion Gap (10.00-18.00) mmol/L BUN 45 H (7-17) mg/dL Creatinine 5.69 H (0.52-1.04) mg/dL Est GFR (CKD-EPI)AfAm (60.0-200.0) Est GFR (CKD-EPI)NonAf (60.0-200.0) BUN/Creatinine Ratio (12.00-20.00) Ratio Glucose 473 H (74-99) mg/dL POC Glucose (mg/dL) 436 H 310 H (75-99) mg/dL Calcium 7.8 L (8.4-10.2) mg/dL Total Bilirubin (0.30-1.20) mg/dL AST (13-35) U/L ALT (8-44) U/L Alkaline Phosphatase (41-126) U/L Total Protein (6.2-8.2) g/dL Albumin (3.8-4.9) g/dL Albumin/Globulin Ratio (1.60-3.17) g/dL 08/22/21 08/22/21 08/22/21 Range/Units 16:22 16:43 18:53 WBC (3.8-10.6) k/uL RBC (3.80-5.40) m/uL Hgb (11.4-16.0) gm/dL Hct (34.0-46.0) % Lymphocytes # (1.0-4.8) k/uL Sodium (137-145) mmol/L Chloride (98-107) mmol/L Carbon Dioxide (22-30) mmol/L Anion Gap (10.00-18.00) mmol/L BUN (7-17) mg/dL Creatinine (0.52-1.04) mg/dL Est GFR (CKD-EPI)AfAm (60.0-200.0) Est GFR (CKD-EPI)NonAf (60.0-200.0) BUN/Creatinine Ratio (12.00-20.00) Ratio Glucose (74-99) mg/dL POC Glucose (mg/dL) 215 H 190 H 45 L (75-99) mg/dL Calcium (8.4-10.2) mg/dL Total Bilirubin (0.30-1.20) mg/dL AST (13-35) U/L ALT (8-44) U/L Alkaline Phosphatase (41-126) U/L Total Protein (6.2-8.2) g/dL Albumin (3.8-4.9) g/dL Albumin/Globulin Ratio (1.60-3.17) g/dL 08/22/21 08/22/21 08/22/21 Range/Units 19:24 20:00 22:15 WBC (3.8-10.6) k/uL RBC (3.80-5.40) m/uL Hgb (11.4-16.0) gm/dL Hct (34.0-46.0) % Lymphocytes # (1.0-4.8) k/uL Sodium (137-145) mmol/L Chloride (98-107) mmol/L Carbon Dioxide (22-30) mmol/L Anion Gap (10.00-18.00) mmol/L BUN (7-17) mg/dL Creatinine (0.52-1.04) mg/dL Est GFR (CKD-EPI)AfAm (60.0-200.0) Est GFR (CKD-EPI)NonAf (60.0-200.0) BUN/Creatinine Ratio (12.00-20.00) Ratio Glucose (74-99) mg/dL POC Glucose (mg/dL) 29 L 73 L 62 L (75-99) mg/dL Calcium (8.4-10.2) mg/dL Total Bilirubin (0.30-1.20) mg/dL AST (13-35) U/L ALT (8-44) U/L Alkaline Phosphatase (41-126) U/L Total Protein (6.2-8.2) g/dL Albumin (3.8-4.9) g/dL Albumin/Globulin Ratio (1.60-3.17) g/dL 08/22/21 08/23/21 08/23/21 Range/Units 22:51 01:32 04:48 WBC 2.08 L (3.8-10.6) k/uL RBC 2.60 L (3.80-5.40) m/uL Hgb 7.6 L (11.4-16.0) gm/dL Hct 23.4 L (34.0-46.0) % Lymphocytes # (1.0-4.8) k/uL Sodium (137-145) mmol/L Chloride (98-107) mmol/L Carbon Dioxide (22-30) mmol/L Anion Gap (10.00-18.00) mmol/L BUN (7-17) mg/dL Creatinine (0.52-1.04) mg/dL Est GFR (CKD-EPI)AfAm (60.0-200.0) Est GFR (CKD-EPI)NonAf (60.0-200.0) BUN/Creatinine Ratio (12.00-20.00) Ratio Glucose (74-99) mg/dL POC Glucose (mg/dL) 101 H 225 H (75-99) mg/dL Calcium (8.4-10.2) mg/dL Total Bilirubin (0.30-1.20) mg/dL AST (13-35) U/L ALT (8-44) U/L Alkaline Phosphatase (41-126) U/L Total Protein (6.2-8.2) g/dL Albumin (3.8-4.9) g/dL Albumin/Globulin Ratio (1.60-3.17) g/dL 08/23/21 08/23/21 08/23/21 Range/Units 04:48 07:10 09:58 WBC (3.8-10.6) k/uL RBC (3.80-5.40) m/uL Hgb (11.4-16.0) gm/dL Hct (34.0-46.0) % Lymphocytes # (1.0-4.8) k/uL Sodium 131 L (137-145) mmol/L Chloride 94 L (98-107) mmol/L Carbon Dioxide 17.5 L (22-30) mmol/L Anion Gap 19.50 H (10.00-18.00) mmol/L BUN 52.0 H (7-17) mg/dL Creatinine 6.5 H (0.52-1.04) mg/dL Est GFR (CKD-EPI)AfAm 9.0 L (60.0-200.0) Est GFR (CKD-EPI)NonAf 7.8 L (60.0-200.0) BUN/Creatinine Ratio 8.00 L (12.00-20.00) Ratio Glucose 417 H (74-99) mg/dL POC Glucose (mg/dL) 571 H 485 H (75-99) mg/dL Calcium 8.3 L (8.4-10.2) mg/dL Total Bilirubin 0.20 L (0.30-1.20) mg/dL AST 135 H (13-35) U/L ALT 95 H (8-44) U/L Alkaline Phosphatase 249 H (41-126) U/L Total Protein 5.8 L (6.2-8.2) g/dL Albumin 3.5 L (3.8-4.9) g/dL Albumin/Globulin Ratio 1.52 L (1.60-3.17) g/dL Microbiology - Last 24 Hours (Table) 08/19/21 05:54 Blood Culture - Preliminary Blood No Growth after 96 hours Assessment and Plan Plan: Assessment: 1. End-stage renal disease maintained on hemodialysis on Monday schedule. 2. Hypertension with chronic kidney disease. 3. Volume overload with pericardial and pleural effusion. 4. Diabetes mellitus. 5. Pneumonia on antibiotics. 6. Anemia of chronic kidney disease. Receiving IV iron. Also on Aranesp. 7. Metabolic acidosis secondary to chronic kidney disease. Expect improvement postdialysis. 8. Hyponatremia secondary to hyperglycemia. 9. Mild hyperkalemia secondary to metabolic acidosis and hyperglycemia. 10. Chronic kidney disease mineral bone disease maintain Renvela. 11. Chronic diastolic CHF. Plan: Hemodialysis today. Another treatment tomorrow mostly for ultrafiltration. Tight blood sugar control. Check phosphorus level. Patient has been advised multiple times to be compliant with hemodialysis treatments and medications. She has also been advised to come for extra treatments outpatient to help with ultrafiltration.
[2021-08-23 11:58] LABS: Glucose,Whole Blood 423 mg/dL (75-99)
[2021-08-23 12:12] LABS: Basophils # (A) 0.01 X 10*3/uL (0.00-0.10); Basophils % (A) 0.5 %; Eosinophils # (A) 0.14 X 10*3/uL (0.04-0.35); Eosinophils % (A) 6.7 %; Immature Grans, Automated 1.4 %; Lymphocytes # (A) 0.76 X 10*3/uL (0.90-5.00); Lymphocytes % (A) 36.5 %; Monocytes # (A) 0.13 X 10*3/uL (0.20-1.00); Monocytes % (A) 6.3 %; Neutrophils # (A) 1.01 X 10*3/uL (1.80-7.70); Neutrophils % (A) 48.6 %
[2021-08-23] MEDS: diphenhydrAMINE 50 MG/ML 1 ML VIAL IVP PRN ×2 (15:21→20:58)
[2021-08-23 16:52] LABS: Glucose,Whole Blood 96 mg/dL (75-99)
[2021-08-23 20:15] LABS: Glucose,Whole Blood 150 mg/dL (75-99)
[2021-08-23] MEDS: hydrALAZINE HCL 20 MG/ML 1 ML VIAL IVP PRN (20:22)
[2021-08-23] MEDS: ISOSORBIDE MONONITRATE ER 30 MG TAB.ER.24H PO SCH (20:58)
[2021-08-23] MEDS: MELATONIN 5 MG TABLET PO PRN (21:05)
--- NOTE | 2021-08-23 22:24 | P.PN ---
Subjective Progress Note Date: 08/23/21 Principal diagnosis: Pneumonia Patient is a 30-year-old female with a past medical history significant for end-stage renal disease on dialysis presented to the hospital w ith a fever of left lower chest pain concerning for pneumonia. On today's evaluation that is 07/28/2021, the patient remains to be afebrile, the patient is breathing comfortably cough is decreased intensity mostly dry in nature no nausea no vomiting no abdominal pain and no diarrhea Objective - Vital Signs Vital signs: Vital Signs Temp 98.3 F 08/23/21 07:29 Pulse 82 08/23/21 07:29 Resp 18 08/23/21 07:41 BP 155/75 08/23/21 10:02 Pulse Ox 100 08/23/21 07:29 Intake & Output 08/22/21 08/23/21 08/23/21 18:59 06:59 18:59 Intake Total 100 Balance 100 Intake: Oral 100 Other: Voiding Method Diaper Diaper Diaper # Voids 1 # Bowel Movements 3 - Exam GENERAL DESCRIPTION: Middle-age female lying in bed in no distress RESPIRATORY SYSTEM: Unlabored breathing , decreased breath sounds at bases HEART: S1 S2 regular rate and rhythm , ABDOMEN: Soft , no tenderness EXTREMITIES: No edema feet - Labs CBC & Chem 7: 08/23/21 04:48 08/23/21 04:48 Labs: Abnormal Lab Results - Last 24 Hours (Table) 08/22/21 08/22/21 08/22/21 Range/Units 12:07 13:55 14:15 WBC 2.4 L (3.8-10.6) k/uL RBC 2.56 L (3.80-5.40) m/uL Hgb 7.9 L (11.4-16.0) gm/dL Hct 23.8 L (34.0-46.0) % Neutrophils # (1.80-7.70) X 10*3/uL Lymphocytes # 0.5 L (1.0-4.8) k/uL Monocytes # (0.20-1.00) X 10*3/uL Sodium 129 L (137-145) mmol/L Chloride 95 L (98-107) mmol/L Carbon Dioxide 21 L (22-30) mmol/L Anion Gap (10.00-18.00) mmol/L BUN 45 H (7-17) mg/dL Creatinine 5.69 H (0.52-1.04) mg/dL Est GFR (CKD-EPI)AfAm (60.0-200.0) Est GFR (CKD-EPI)NonAf (60.0-200.0) BUN/Creatinine Ratio (12.00-20.00) Ratio Glucose 473 H (74-99) mg/dL POC Glucose (mg/dL) 520 H (75-99) mg/dL Calcium 7.8 L (8.4-10.2) mg/dL Total Bilirubin (0.30-1.20) mg/dL AST (13-35) U/L ALT (8-44) U/L Alkaline Phosphatase (41-126) U/L Total Protein (6.2-8.2) g/dL Albumin (3.8-4.9) g/dL Albumin/Globulin Ratio (1.60-3.17) g/dL 08/22/21 08/22/21 08/22/21 Range/Units 14:33 15:32 16:22 WBC (3.8-10.6) k/uL RBC (3.80-5.40) m/uL Hgb (11.4-16.0) gm/dL Hct (34.0-46.0) % Neutrophils # (1.80-7.70) X 10*3/uL Lymphocytes # (1.0-4.8) k/uL Monocytes # (0.20-1.00) X 10*3/uL Sodium (137-145) mmol/L Chloride (98-107) mmol/L Carbon Dioxide (22-30) mmol/L Anion Gap (10.00-18.00) mmol/L BUN (7-17) mg/dL Creatinine (0.52-1.04) mg/dL Est GFR (CKD-EPI)AfAm (60.0-200.0) Est GFR (CKD-EPI)NonAf (60.0-200.0) BUN/Creatinine Ratio (12.00-20.00) Ratio Glucose (74-99) mg/dL POC Glucose (mg/dL) 436 H 310 H 215 H (75-99) mg/dL Calcium (8.4-10.2) mg/dL Total Bilirubin (0.30-1.20) mg/dL AST (13-35) U/L ALT (8-44) U/L Alkaline Phosphatase (41-126) U/L Total Protein (6.2-8.2) g/dL Albumin (3.8-4.9) g/dL Albumin/Globulin Ratio (1.60-3.17) g/dL 08/22/21 08/22/21 08/22/21 Range/Units 16:43 18:53 19:24 WBC (3.8-10.6) k/uL RBC (3.80-5.40) m/uL Hgb (11.4-16.0) gm/dL Hct (34.0-46.0) % Neutrophils # (1.80-7.70) X 10*3/uL Lymphocytes # (1.0-4.8) k/uL Monocytes # (0.20-1.00) X 10*3/uL Sodium (137-145) mmol/L Chloride (98-107) mmol/L Carbon Dioxide (22-30) mmol/L Anion Gap (10.00-18.00) mmol/L BUN (7-17) mg/dL Creatinine (0.52-1.04) mg/dL Est GFR (CKD-EPI)AfAm (60.0-200.0) Est GFR (CKD-EPI)NonAf (60.0-200.0) BUN/Creatinine Ratio (12.00-20.00) Ratio Glucose (74-99) mg/dL POC Glucose (mg/dL) 190 H 45 L 29 L (75-99) mg/dL Calcium (8.4-10.2) mg/dL Total Bilirubin (0.30-1.20) mg/dL AST (13-35) U/L ALT (8-44) U/L Alkaline Phosphatase (41-126) U/L Total Protein (6.2-8.2) g/dL Albumin (3.8-4.9) g/dL Albumin/Globulin Ratio (1.60-3.17) g/dL 08/22/21 08/22/21 08/22/21 Range/Units 20:00 22:15 22:51 WBC (3.8-10.6) k/uL RBC (3.80-5.40) m/uL Hgb (11.4-16.0) gm/dL Hct (34.0-46.0) % Neutrophils # (1.80-7.70) X 10*3/uL Lymphocytes # (1.0-4.8) k/uL Monocytes # (0.20-1.00) X 10*3/uL Sodium (137-145) mmol/L Chloride (98-107) mmol/L Carbon Dioxide (22-30) mmol/L Anion Gap (10.00-18.00) mmol/L BUN (7-17) mg/dL Creatinine (0.52-1.04) mg/dL Est GFR (CKD-EPI)AfAm (60.0-200.0) Est GFR (CKD-EPI)NonAf (60.0-200.0) BUN/Creatinine Ratio (12.00-20.00) Ratio Glucose (74-99) mg/dL POC Glucose (mg/dL) 73 L 62 L 101 H (75-99) mg/dL Calcium (8.4-10.2) mg/dL Total Bilirubin (0.30-1.20) mg/dL AST (13-35) U/L ALT (8-44) U/L Alkaline Phosphatase (41-126) U/L Total Protein (6.2-8.2) g/dL Albumin (3.8-4.9) g/dL Albumin/Globulin Ratio (1.60-3.17) g/dL 08/23/21 08/23/21 08/23/21 Range/Units 01:32 04:48 04:48 WBC 2.08 L (3.8-10.6) k/uL RBC 2.60 L (3.80-5.40) m/uL Hgb 7.6 L (11.4-16.0) gm/dL Hct 23.4 L (34.0-46.0) % Neutrophils # 1.01 L (1.80-7.70) X 10*3/uL Lymphocytes # 0.76 L (1.0-4.8) k/uL Monocytes # 0.13 L (0.20-1.00) X 10*3/uL Sodium 131 L (137-145) mmol/L Chloride 94 L (98-107) mmol/L Carbon Dioxide 17.5 L (22-30) mmol/L Anion Gap 19.50 H (10.00-18.00) mmol/L BUN 52.0 H (7-17) mg/dL Creatinine 6.5 H (0.52-1.04) mg/dL Est GFR (CKD-EPI)AfAm 9.0 L (60.0-200.0) Est GFR (CKD-EPI)NonAf 7.8 L (60.0-200.0) BUN/Creatinine Ratio 8.00 L (12.00-20.00) Ratio Glucose 417 H (74-99) mg/dL POC Glucose (mg/dL) 225 H (75-99) mg/dL Calcium 8.3 L (8.4-10.2) mg/dL Total Bilirubin 0.20 L (0.30-1.20) mg/dL AST 135 H (13-35) U/L ALT 95 H (8-44) U/L Alkaline Phosphatase 249 H (41-126) U/L Total Protein 5.8 L (6.2-8.2) g/dL Albumin 3.5 L (3.8-4.9) g/dL Albumin/Globulin Ratio 1.52 L (1.60-3.17) g/dL 08/23/21 08/23/21 08/23/21 Range/Units 07:10 09:58 11:53 WBC (3.8-10.6) k/uL RBC (3.80-5.40) m/uL Hgb (11.4-16.0) gm/dL Hct (34.0-46.0) % Neutrophils # (1.80-7.70) X 10*3/uL Lymphocytes # (1.0-4.8) k/uL Monocytes # (0.20-1.00) X 10*3/uL Sodium (137-145) mmol/L Chloride (98-107) mmol/L Carbon Dioxide (22-30) mmol/L Anion Gap (10.00-18.00) mmol/L BUN (7-17) mg/dL Creatinine (0.52-1.04) mg/dL Est GFR (CKD-EPI)AfAm (60.0-200.0) Est GFR (CKD-EPI)NonAf (60.0-200.0) BUN/Creatinine Ratio (12.00-20.00) Ratio Glucose (74-99) mg/dL POC Glucose (mg/dL) 571 H 485 H 423 H (75-99) mg/dL Calcium (8.4-10.2) mg/dL Total Bilirubin (0.30-1.20) mg/dL AST (13-35) U/L ALT (8-44) U/L Alkaline Phosphatase (41-126) U/L Total Protein (6.2-8.2) g/dL Albumin (3.8-4.9) g/dL Albumin/Globulin Ratio (1.60-3.17) g/dL Microbiology - Last 24 Hours (Table) 08/19/21 05:54 Blood Culture - Preliminary Blood No Growth after 96 hours Assessment and Plan (1) Sepsis due to pneumonia Current Visit: Yes Status: Acute Code(s): J18.9 - PNEUMONIA, UNSPECIFIED ORGANISM; A41.9 - SEPSIS, UNSPECIFIED ORGANISM SNOMED Code(s): 57350651 Plan: 1patient presented to hospital with fever in this patient also have a left lower rib cage pain which is pleuritic concerning for possible pneumonia and question of possible aspiration etiology recently completed course of oral Augmentin. 2 sputum for Gram stain and culture requested but not collected 3 patient fever pattern has improved with the addition of vancomycin which will be continued through dialysis for another 10 days on discharge to finish her course of therapy and close outpatient follow-up Time with Patient: Less than 30
--- NOTE | 2021-08-24 00:04 | P.PN ---
Subjective Progress Note Date: 08/23/21 30-year-old female came in with complaints of bilateral rib cage pain, fevers which started on Monday. Patient had an abdominal CT which showed a pneumonic infiltrate in the right lung along with some parapneumonic effusion. Patient was started on broad-spectrum antibiotics vancomycin and cefepime treating for healthcare associated pneumonia patient was recently hospitalized for couple weeks ago at that time patient was treated for intra-abdominal infection at that time. Patient has history of end-stage renal disease hemodialysis dependent. Patient has mild leukocytosis with a white blood cell count of 10 patient does have history of type 1 diabetes mellitus and diabetic nephropathy which led to hemodialysis dependence. 08/17/2021 Patient evaluated today resting in bed during hemodialysis. No acute complaints over night. Continues with dry non productive cough. States ribs are sore from coughing. Denies fever, chills, dysuria, abdominal pain. Has been having loose stools since being started on antibiotics. Blood cultures negative so far. Labs today show WBC 3.2, hgb today 6.2, repeat 8.4 s/p 1 unit PRBC which patient received during hemodialysis. Sodium repeat 135, potassium 3.3, BUN 18, creatinine 2.84, blood glucose elevated today in the 500s. Patient has not been getting levemir since admission as blood sugar was in the 20s at that time. Improved to 80s today with levemir. Continues on IV antibiotics, followed closely by infectious disease. Urine culture pending. 08/18/2021 Patient evaluated today resting in bed during hemodialysis. Patient continues with dry nonproductive cough states that her ribs are sore. Patient underwent hemodialysis today. Labs today show sodium 129, chloride 93. Creatinine 5.1. A1C 7.7, hgb 7.6. BP 129/76, Temp, heart rate 81, 100% 3L. States cough not improved with lozenges or tessalon. Added albuterol as well as she complains of mild shortness of breath as well. Blood sugar eleveted 500-600 last night, pt was started on insulin gtt and sugar dropped into the 20s. Today she is back in the 200-300s and we took her off the gtt and started her on low dose levemir. She plans to see endocrinology outpatient. 08/19/2021 Patient continues with persistant cough, non productive. Sore ribs due to coughing. Receiving sugar free lozenges, tessalon and albuterol for cough and breathing. Does complain of some shortness of breath today wearing nasal cannula. Refused incentive spirometry. 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 Blood cultures are negative so far, blood culture today repeated. ID is following closely and patient is on IV zosyn. Blood sugars are coming down slowly, although continues to have extreme lows and highs into the 400-500s. Currently today has been 132, 431, and 253. On levemir 10 units daily and sliding scale. Monitor closely for hypoglycemia. Procalcitonin level today 17.90, CRP 8.00 which both are trending down. Otherwise WBC 2.30, hemoglobin 7.1 s/p 1 unit of PRBCs. Sodium today 131, creatinine 4.5. 08/20/2021 Patient is seen and evaluated in follow-up this morning and continues with a cough and reports the shortness of breath. Patient also reports to not sleeping very well and feeling generalized fatigue. Blood sugars are uncontrolled and hyperglycemic although when attempting to place the patient on insulin drip patient drops significantly rather quickly and becomes severely hypoglycemic. Patient is maintained on IV Zosyn and vancomycin is being added infectious disea se following closely. Patient continues to have fevers and currently requiring 3 L of oxygen via nasal cannula. Blood pressure uncontrolled and will continue to monitor closely. Patient reports to some chest pain from the cough and continues to have pain on deep inspiration. Incentive spirometer at the bedside encourage the patient to continue using although patient is resistant per nursing staff. Continue with breathing inhalational treatments. 08/23/2021 Patient is seen in follow up this morning and continues on IV vanco with ID following. Nephrology following as well and patient is scheduled for hemodialysis today. Patient continues to have a cough that is causing pleuritic chest pains with coughing. Patient blood sugars also continue to fluctuate. Will consult dietitian to discuss further about diet. Patient denies worsening shortness of breath and continued on 3 L via NC as she states she is using for relief after coughing spells as she feels unable to catch her breath. Patient is afebrile. REVIEW OF SYSTEMS: CONSTITUTIONAL: no malaise, reports fatigue. no Reports of fever/chills. HEENT: No recent visual problems or hearing problems. Reports sore throat. CARDIOVASCULAR: No orthopnea, PND, no palpitations, no syncope. PULMONARY: Reports shortness of breath with coughing spells, Reports persistent dry non productive cough. GASTROINTESTINAL: no Reports of loose stools, no nausea, no vomiting, no abdominal pain. Active Medications Acetaminophen (Acetaminophen Tab 325 Mg Tab) 650 mg PO Q6HR PRN PRN Reason: Mild Pain or Fever > 100.5 Last Admin: 08/20/21 19:37 Dose: 650 mg Documented by: Hydrocodone Bitart/Acetaminophen (Hydrocodone/Apap 5-325mg 1 Each Tab) 1 each PO Q6HR PRN PRN Reason: Pain Last Admin: 08/23/21 10:59 Dose: 1 each Documented by: Albuterol Sulfate (Albuterol Nebulized 2.5 Mg/3 Ml) 2.5 mg INHALATION RT-QID PRN PRN Reason: Shortness Of Breath Or Wheezing Last Admin: 08/19/21 20:55 Dose: 2.5 mg Documented by: Aspirin (Aspirin 81 Mg) 81 mg PO DAILY [facility] Last Admin: 08/23/21 07:28 Dose: 81 mg Documented by: Benzocaine/Menthol (Benzocaine/Menthol Lozeng 1 Each Lozenge) 1 each MUCOUS MEM Q4HR PRN PRN Reason: Cough Last Admin: 08/17/21 17:22 Dose: 1 each Documented by: Benzonatate (Benzonatate 100 Mg Cap) 100 mg PO TID PRN PRN Reason: Cough Last Admin: 08/23/21 11:00 Dose: 100 mg Documented by: Carvedilol (Carvedilol 12.5 Mg Tab) 25 mg PO BID-W/MEALS [facility] Last Admin: 08/23/21 15:46 Dose: 25 mg Documented by: Clonidine (Clonidine Hcl 0.1 Mg Tab) 0.3 mg PO TID [facility] Last Admin: 08/23/21 22:26 Dose: 0.3 mg Documented by: Darbepoetin Tate (Darbepoetin Tate 60 Mcg/0.3 Ml Syringe) 60 mcg SQ Q7D [facility] Last Admin: 08/19/21 14:17 Dose: 60 mcg Documented by: Diphenhydramine HCl (Diphenhydramine 50 Mg/Ml 1 Ml Vial) 25 mg IVP Q6HR PRN PRN Reason: Itching Last Admin: 08/23/21 20:58 Dose: 25 mg Documented by: Ergocalciferol (Ergocalciferol 1,250 Mcg (50,000 Iu) Capsule) 1,250 mcg PO Loo@0900 [facility] Last Admin: 08/22/21 07:36 Dose: 1,250 mcg Documented by: Escitalopram Oxalate (Escitalopram 20 Mg Tab) 20 mg PO DAILY [facility] Last Admin: 08/23/21 07:28 Dose: 20 mg Documented by: Heparin Sodium (Porcine) (Heparin Sodium,Porcine/Pf 5,000 Unit/0.5 Ml Syringe) 5,000 unit SQ Q12HR [facility] Last Admin: 08/23/21 20:53 Dose: Not Given Documented by: Hydralazine HCl (Hydralazine Hcl 20 Mg/Ml 1 Ml Vial) 10 mg IVP Q4HR PRN PRN Reason: Blood Pressure - High Last Admin: 08/23/21 20:22 Dose: 10 mg Documented by: Hydromorphone HCl (Hydromorphone 0.5 Mg/0.5 Ml Syringe) 0.5 mg IVP Q3HR PRN PRN Reason: Moderate Pain Last Admin: 08/17/21 18:52 Dose: 0.5 mg Documented by: Hydromorphone HCl (Hydromorphone 1 Mg/Ml 1 Ml Syringe) 1 mg IVP Q3HR PRN PRN Reason: Severe Pain Last Admin: 08/23/21 22:37 Dose: 1 mg Documented by: Ferric Sodium Gluconate 125 mg (/ Sodium Chloride) 110 mls @ 100 mls/hr IVPB DAILY [facility] Stop: 08/24/21 10:05 Last Admin: 08/23/21 09:06 Dose: 100 mls/hr Documented by: Insulin Human Regular 100 unit (/ Sodium Chloride) 101 mls @ 0 mls/hr IV .Q0M [facility]; Protocol Insulin Aspart (Insulin Aspart (Novolog) 100 Unit/Ml Vial) 0 unit SQ ACHS [facility]; Protocol Last Admin: 08/23/21 20:53 Dose: Not Given Documented by: Insulin Detemir (Insulin Detemir (Levemir) 100 Unit/Ml Syr) 10 unit SQ DAILY@0700 [facility] Last Admin: 08/23/21 07:29 Dose: 10 unit Documented by: Isosorbide Mononitrate (Isosorbide Mononitrate Er 30 Mg Tab.Er.24h) 30 mg PO HS [facility] Last Admin: 08/23/21 20:58 Dose: 30 mg Documented by: Lisinopril (Lisinopril 10 Mg Tab) 10 mg PO DAILY [facility] Last Admin: 08/23/21 07:26 Dose: 10 mg Documented by: Lorazepam (Lorazepam 2 Mg/Ml Inj) 0.5 mg IV Q6HR PRN PRN Reason: Anxiety Melatonin (Melatonin 5 Mg Tablet) 5 - 10 mg PO HS PRN PRN Reason: Insomnia Last Admin: 08/23/21 21:05 Dose: 10 mg Documented by: Metoclopramide HCl (Metoclopramide 5 Mg/Ml 2 Ml Vial) 5 mg IVP BID PRN PRN Reason: Nausea And Vomiting Last Admin: 08/15/21 18:59 Dose: 5 mg Documented by: Minoxidil (Minoxidil 2.5 Mg Tab) 2.5 mg PO BID [facility] Last Admin: 08/23/21 22:27 Dose: 2.5 mg Documented by: Miscellaneous Information (Vancomycin Iv Per Pharmacy 1 Each [facility] [place]) 1 each MISCELLANE DIRECTED PRN; Protocol PRN Reason: Per Protocol Naloxone HCl (Naloxone 0.4 Mg/Ml 1 Ml Vial) 0.2 mg IV Q2M PRN PRN Reason: Opioid Reversal Pantoprazole Sodium (Pantoprazole 40 Mg Tablet) 40 mg PO BID [facility] Last Admin: 08/23/21 20:59 Dose: 40 mg Documented by: Ropinirole HCl (Ropinirole Hcl 0.25 Mg Tab) 0.5 mg PO HS [facility] Last Admin: 08/23/21 20:58 Dose: 0.5 mg Documented by: Sevelamer Carbonate (Sevelamer 800 Mg Tab) 800 mg PO TID-W/MEALS [facility] Last Admin: 08/23/21 17:06 Dose: 800 mg Documented by: PHYSICAL EXAMINATION: GENERAL: The patient is alert and oriented x3, ill appearing, fatigued. Well developed, well nourished. HEENT: Pupils are round and equally reacting to light. EOMI. No scleral icterus. No conjunctival pallor. Normocephalic, atraumatic. No pharyngeal erythema. No thyromegaly. CARDIOVASCULAR: S1 and S2 muffled PULMONARY: Chest is diminished bilaterally with some scattered rhonchi noted ABDOMEN: Soft, nontender, nondistended, normoactive bowel sounds. No palpable organomegaly. MUSCULOSKELETAL: No joint swelling or deformity. EXTREMITIES: No cyanosis, clubbing, or pedal edema. NEUROLOGICAL: Gross neurological examination did not reveal any focal deficits. SKIN: No rashes. Assessment: -Sepsis: Secondary to bilateral interstitial multifocal pneumonia, possibly gram negative -End-stage renal disease, hemodialysis dependent monday -Hyponatremia secondary to chronic kidney disease, improving -Anemia, chronic -Type 1 diabetes mellitus, uncontrolled with hyperglycemia, brittle -Pleuritic chest pain and a parapneumonic effusion -Hypertension secondary to renal disease -Depression -DVT prophylaxis: subcutaneous heparin -GI prophylaxis -Full Code Plan: Recommend to continue with breathing inhalational treatments and strongly encourage incentive spirometer at least 10 times every hour while awake Patient is continued on IV vancomycin with infectious disease following closely. Patient will continue with vanco during dialysis for 10 days outpatient Patient is to continue on dialysis Monday/Monday/Monday with nephrology following closely and currently receiving dialysis at this time, again in am for ultrafiltration Recommend repeat labs in the a.m. Continue to encourage increased activity as tolerated, encourage oral intake Recommend close monitoring of blood sugars and before meals and at bedtime Accu- Cheks along with as needed as patient is a brittle diabetic and blood sugars have been fluctuating, consult dietitian Given multiple complex medical issues, prognosis is guarded. The impression and plan of care has been dictated by Cindi Saha, Nurse Practitioner as directed. Dr. Jean MD I have performed a history and physical examination and medical decision making of this patient, discussed the same with the dictator, and agree with the dictators assessment and plan as written, documented as a scribe. Based on total visit time, I have performed more than 50% of this visit. Objective - Vital Signs Vital signs: Vital Signs Temp 98.3 F 08/23/21 07:29 Pulse 82 08/23/21 07:29 Resp 18 08/23/21 07:41 BP 226/100 08/23/21 07:29 Pulse Ox 100 08/23/21 07:29 Intake & Output 08/22/21 08/23/21 08/23/21 18:59 06:59 18:59 Intake Total 100 Balance 100 Intake: Oral 100 Other: Voiding Method Diaper Diaper Diaper # Voids 1 # Bowel Movements 3 - Labs CBC & Chem 7: 08/23/21 04:48 08/23/21 04:48 Labs: Abnormal Lab Results - Last 24 Hours (Table) 08/22/21 08/22/21 08/22/21 Range/Units 11:45 12:07 13:55 WBC 2.4 L (3.8-10.6) k/uL RBC 2.56 L (3.80-5.40) m/uL Hgb 7.9 L (11.4-16.0) gm/dL Hct 23.8 L (34.0-46.0) % Lymphocytes # 0.5 L (1.0-4.8) k/uL Sodium (137-145) mmol/L Chloride (98-107) mmol/L Carbon Dioxide (22-30) mmol/L Anion Gap (10.00-18.00) mmol/L BUN (7-17) mg/dL Creatinine (0.52-1.04) mg/dL Est GFR (CKD-EPI)AfAm (60.0-200.0) Est GFR (CKD-EPI)NonAf (60.0-200.0) BUN/Creatinine Ratio (12.00-20.00) Ratio Glucose (74-99) mg/dL POC Glucose (mg/dL) >600 H 520 H (75-99) mg/dL Calcium (8.4-10.2) mg/dL Total Bilirubin (0.30-1.20) mg/dL AST (13-35) U/L ALT (8-44) U/L Alkaline Phosphatase (41-126) U/L Total Protein (6.2-8.2) g/dL Albumin (3.8-4.9) g/dL Albumin/Globulin Ratio (1.60-3.17) g/dL 08/22/21 08/22/21 08/22/21 Range/Units 14:15 14:33 15:32 WBC (3.8-10.6) k/uL RBC (3.80-5.40) m/uL Hgb (11.4-16.0) gm/dL Hct (34.0-46.0) % Lymphocytes # (1.0-4.8) k/uL Sodium 129 L (137-145) mmol/L Chloride 95 L (98-107) mmol/L Carbon Dioxide 21 L (22-30) mmol/L Anion Gap (10.00-18.00) mmol/L BUN 45 H (7-17) mg/dL Creatinine 5.69 H (0.52-1.04) mg/dL Est GFR (CKD-EPI)AfAm (60.0-200.0) Est GFR (CKD-EPI)NonAf (60.0-200.0) BUN/Creatinine Ratio (12.00-20.00) Ratio Glucose 473 H (74-99) mg/dL POC Glucose (mg/dL) 436 H 310 H (75-99) mg/dL Calcium 7.8 L (8.4-10.2) mg/dL Total Bilirubin (0.30-1.20) mg/dL AST (13-35) U/L ALT (8-44) U/L Alkaline Phosphatase (41-126) U/L Total Protein (6.2-8.2) g/dL Albumin (3.8-4.9) g/dL Albumin/Globulin Ratio (1.60-3.17) g/dL 08/22/21 08/22/21 08/22/21 Range/Units 16:22 16:43 18:53 WBC (3.8-10.6) k/uL RBC (3.80-5.40) m/uL Hgb (11.4-16.0) gm/dL Hct (34.0-46.0) % Lymphocytes # (1.0-4.8) k/uL Sodium (137-145) mmol/L Chloride (98-107) mmol/L Carbon Dioxide (22-30) mmol/L Anion Gap (10.00-18.00) mmol/L BUN (7-17) mg/dL Creatinine (0.52-1.04) mg/dL Est GFR (CKD-EPI)AfAm (60.0-200.0) Est GFR (CKD-EPI)NonAf (60.0-200.0) BUN/Creatinine Ratio (12.00-20.00) Ratio Glucose (74-99) mg/dL POC Glucose (mg/dL) 215 H 190 H 45 L (75-99) mg/dL Calcium (8.4-10.2) mg/dL Total Bilirubin (0.30-1.20) mg/dL AST (13-35) U/L ALT (8-44) U/L Alkaline Phosphatase (41-126) U/L Total Protein (6.2-8.2) g/dL Albumin (3.8-4.9) g/dL Albumin/Globulin Ratio (1.60-3.17) g/dL 08/22/21 08/22/21 08/22/21 Range/Units 19:24 20:00 22:15 WBC (3.8-10.6) k/uL RBC (3.80-5.40) m/uL Hgb (11.4-16.0) gm/dL Hct (34.0-46.0) % Lymphocytes # (1.0-4.8) k/uL Sodium (137-145) mmol/L Chloride (98-107) mmol/L Carbon Dioxide (22-30) mmol/L Anion Gap (10.00-18.00) mmol/L BUN (7-17) mg/dL Creatinine (0.52-1.04) mg/dL Est GFR (CKD-EPI)AfAm (60.0-200.0) Est GFR (CKD-EPI)NonAf (60.0-200.0) BUN/Creatinine Ratio (12.00-20.00) Ratio Glucose (74-99) mg/dL POC Glucose (mg/dL) 29 L 73 L 62 L (75-99) mg/dL Calcium (8.4-10.2) mg/dL Total Bilirubin (0.30-1.20) mg/dL AST (13-35) U/L ALT (8-44) U/L Alkaline Phosphatase (41-126) U/L Total Protein (6.2-8.2) g/dL Albumin (3.8-4.9) g/dL Albumin/Globulin Ratio (1.60-3.17) g/dL 08/22/21 08/23/21 08/23/21 Range/Units 22:51 01:32 04:48 WBC 2.08 L (3.8-10.6) k/uL RBC 2.60 L (3.80-5.40) m/uL Hgb 7.6 L (11.4-16.0) gm/dL Hct 23.4 L (34.0-46.0) % Lymphocytes # (1.0-4.8) k/uL Sodium (137-145) mmol/L Chloride (98-107) mmol/L Carbon Dioxide (22-30) mmol/L Anion Gap (10.00-18.00) mmol/L BUN (7-17) mg/dL Creatinine (0.52-1.04) mg/dL Est GFR (CKD-EPI)AfAm (60.0-200.0) Est GFR (CKD-EPI)NonAf (60.0-200.0) BUN/Creatinine Ratio (12.00-20.00) Ratio Glucose (74-99) mg/dL POC Glucose (mg/dL) 101 H 225 H (75-99) mg/dL Calcium (8.4-10.2) mg/dL Total Bilirubin (0.30-1.20) mg/dL AST (13-35) U/L ALT (8-44) U/L Alkaline Phosphatase (41-126) U/L Total Protein (6.2-8.2) g/dL Albumin (3.8-4.9) g/dL Albumin/Globulin Ratio (1.60-3.17) g/dL 08/23/21 08/23/21 Range/Units 04:48 07:10 WBC (3.8-10.6) k/uL RBC (3.80-5.40) m/uL Hgb (11.4-16.0) gm/dL Hct (34.0-46.0) % Lymphocytes # (1.0-4.8) k/uL Sodium 131 L (137-145) mmol/L Chloride 94 L (98-107) mmol/L Carbon Dioxide 17.5 L (22-30) mmol/L Anion Gap 19.50 H (10.00-18.00) mmol/L BUN 52.0 H (7-17) mg/dL Creatinine 6.5 H (0.52-1.04) mg/dL Est GFR (CKD-EPI)AfAm 9.0 L (60.0-200.0) Est GFR (CKD-EPI)NonAf 7.8 L (60.0-200.0) BUN/Creatinine Ratio 8.00 L (12.00-20.00) Ratio Glucose 417 H (74-99) mg/dL POC Glucose (mg/dL) 571 H (75-99) mg/dL Calcium 8.3 L (8.4-10.2) mg/dL Total Bilirubin 0.20 L (0.30-1.20) mg/dL AST 135 H (13-35) U/L ALT 95 H (8-44) U/L Alkaline Phosphatase 249 H (41-126) U/L Total Protein 5.8 L (6.2-8.2) g/dL Albumin 3.5 L (3.8-4.9) g/dL Albumin/Globulin Ratio 1.52 L (1.60-3.17) g/dL Microbiology - Last 24 Hours (Table) 08/19/21 05:54 Blood Culture - Preliminary Blood No Growth after 96 hours
[2021-08-24] MEDS: HYDROmorphone 1 MG/ML 1 ML SYRINGE IVP PRN (01:29)
[2021-08-24 01:32] LABS: Glucose,Whole Blood 393 mg/dL (75-99)
[2021-08-24] MEDS ORDERED: INSULIN ASPART (NovoLOG) 100 UNIT/ML VIAL SQ ONE (03:22)
[2021-08-24] MEDS: diphenhydrAMINE 50 MG/ML 1 ML VIAL IVP PRN ×3 (03:30→20:05)
[2021-08-24 06:57] LABS: Glucose,Whole Blood 399 mg/dL (75-99)
[2021-08-24 07:39] LABS: Basophils % (A) 1 %; Eosinophils # (A) 0.2 k/uL (0-0.7); Eosinophils % (A) 6 %; HCT 25.2 % (34.0-46.0); HGB 8.3 gm/dL (11.4-16.0); Lymphocytes # (A) 0.7 k/uL (1.0-4.8); Lymphocytes % (A) 24 %; MCH 29.7 pg (25.0-35.0); MCHC 32.9 g/dL (31.0-37.0); MCV 90.4 fL (80.0-100.0); Mean Platelet Volume 8.7; Monocytes # (A) 0.2 k/uL (0-1.0); Monocytes % (A) 5 %; Neutrophils # (A) 1.8 k/uL (1.3-7.7); Neutrophils % (A) 61 %; Platelet Count 229 k/uL (150-450); RBC 2.79 m/uL (3.80-5.40); RDW 14.3 % (11.5-15.5)
[2021-08-24] MEDS: INSULIN ASPART (NovoLOG) 100 UNIT/ML VIAL SQ SCH ×5 (07:53→19:57)
[2021-08-24] MEDS: INSULIN DETEMIR (LEVEMIR) 100 UNIT/ML SYR SQ SCH (07:54)
[2021-08-24 07:55] LABS: African American GFR (CKD) 11 (>60 ml/min/1.73 sqM); Anion Gap 10 mmol/L; Blood Urea Nitrogen 41 mg/dL (7-17); Calcium 8.4 mg/dL (8.4-10.2); Carbon Dioxide 25 mmol/L (22-30); Chloride 97 mmol/L (98-107); Glucose 413 mg/dL (74-99); Non-African American GFR(CKD) 10 (>60 ml/min/1.73 sqM); Potassium 4.6 mmol/L (3.5-5.1); Sodium 132 mmol/L (137-145)
[2021-08-24] MEDS: carvediloL 12.5 MG TAB PO SCH ×2 (07:56→17:58)
[2021-08-24] MEDS: SEVELAMER 800 MG TAB PO SCH ×3 (07:56→17:58)
[2021-08-24] MEDS: hydrALAZINE HCL 20 MG/ML 1 ML VIAL IVP PRN (08:51)
[2021-08-24] MEDS: HYDROmorphone 0.5 MG/0.5 ML SYRINGE IVP PRN ×3 (08:51→21:49)
[2021-08-24] MEDS: ASPIRIN 81 MG PO SCH (09:03)
[2021-08-24] MEDS: ESCITALOPRAM 20 MG TAB PO SCH (09:03)
[2021-08-24] MEDS: PANTOPRAZOLE 40 MG TABLET PO SCH ×2 (09:04→19:57)
[2021-08-24] MEDS: minoxidiL 2.5 MG TAB PO SCH (09:05)
[2021-08-24] MEDS: cloNIDine HCL 0.1 MG TAB PO SCH ×3 (09:06→21:48)
[2021-08-24] MEDS: HEPARIN SODIUM,PORCINE/PF 5,000 UNIT/0.5 ML SYRINGE SQ SCH ×2 (09:11→19:58)
[2021-08-24] MEDS: lisinopriL 10 MG TAB PO SCH (09:15)
--- NOTE | 2021-08-24 09:17 | P.PN ---
Subjective Patient is seen in follow-up for end-stage renal disease. She is maintained on hemodialysis on Monday schedule. Denies chest pain or shortness of breath. On room air. Blood pressure has been quite labile. It was high this morning and medications are currently being given. She denies any headaches, chest pain or shortness of breath. Scheduled for extra dialysis treatment today mostly for ultrafiltration. Vital signs are stable. Blood pressure high. General: Awake. HEENT: Head exam is unremarkable. LUNGS: Breath sounds decreased. HEART: Rate and Rhythm are regular. ABDOMEN: Soft, no distention. EXTREMITITES: No edema. Objective - Vital Signs Vital signs: Vital Signs Temp 98.6 F 08/24/21 07:38 Pulse 82 08/24/21 07:38 Resp 16 08/24/21 07:38 BP 231/111 08/24/21 07:38 Pulse Ox 99 08/24/21 07:38 Intake & Output 08/23/21 08/24/21 08/24/21 18:59 06:59 18:59 Intake Total 600 100 Output Total 3000 Balance -2400 100 Intake: Intake, IV Titration 100 Amount Piperacillin-Tazobactam 3 100 .375 gm In Sodium Chloride 0.9% 100 ml @ 25 mls/hr IVPB Q12H [facility] Rx# :[id number] Oral 300 Hemodialysis 300 Output: Hemodialysis 3000 Other: Voiding Method Diaper Diaper # Voids 3 - Labs CBC & Chem 7: 08/24/21 06:56 08/24/21 06:56 Labs: Abnormal Lab Results - Last 24 Hours (Table) 08/23/21 08/23/21 08/23/21 Range/Units 04:48 04:48 09:58 WBC (3.8-10.6) k/uL RBC (3.80-5.40) m/uL Hgb (11.4-16.0) gm/dL Hct (34.0-46.0) % Neutrophils # 1.01 L (1.80-7.70) X 10*3/uL Lymphocytes # 0.76 L (0.90-5.00) X 10*3/uL Monocytes # 0.13 L (0.20-1.00) X 10*3/uL Sodium 131 L (135-145) mmol/L Chloride 94 L (96-109) mmol/L Carbon Dioxide 17.5 L (20.0-27.5) mmol/L Anion Gap 19.50 H (10.00-18.00) mmol/L BUN 52.0 H (9.0-27.0) mg/dL Creatinine 6.5 H (0.6-1.5) mg/dL Est GFR (CKD-EPI)AfAm 9.0 L (60.0-200.0) Est GFR (CKD-EPI)NonAf 7.8 L (60.0-200.0) BUN/Creatinine Ratio 8.00 L (12.00-20.00) Ratio Glucose 417 H (70-110) mg/dL POC Glucose (mg/dL) 485 H (75-99) mg/dL Calcium 8.3 L (8.7-10.3) mg/dL Total Bilirubin 0.20 L (0.30-1.20) mg/dL AST 135 H (13-35) U/L ALT 95 H (8-44) U/L Alkaline Phosphatase 249 H (41-126) U/L Total Protein 5.8 L (6.2-8.2) g/dL Albumin 3.5 L (3.8-4.9) g/dL Albumin/Globulin Ratio 1.52 L (1.60-3.17) g/dL 08/23/21 08/23/21 08/24/21 Range/Units 11:53 20:13 01:30 WBC (3.8-10.6) k/uL RBC (3.80-5.40) m/uL Hgb (11.4-16.0) gm/dL Hct (34.0-46.0) % Neutrophils # (1.80-7.70) X 10*3/uL Lymphocytes # (0.90-5.00) X 10*3/uL Monocytes # (0.20-1.00) X 10*3/uL Sodium (135-145) mmol/L Chloride (96-109) mmol/L Carbon Dioxide (20.0-27.5) mmol/L Anion Gap (10.00-18.00) mmol/L BUN (9.0-27.0) mg/dL Creatinine (0.6-1.5) mg/dL Est GFR (CKD-EPI)AfAm (60.0-200.0) Est GFR (CKD-EPI)NonAf (60.0-200.0) BUN/Creatinine Ratio (12.00-20.00) Ratio Glucose (70-110) mg/dL POC Glucose (mg/dL) 423 H 150 H 393 H (75-99) mg/dL Calcium (8.7-10.3) mg/dL Total Bilirubin (0.30-1.20) mg/dL AST (13-35) U/L ALT (8-44) U/L Alkaline Phosphatase (41-126) U/L Total Protein (6.2-8.2) g/dL Albumin (3.8-4.9) g/dL Albumin/Globulin Ratio (1.60-3.17) g/dL 08/24/21 08/24/21 08/24/21 Range/Units 06:55 06:56 06:56 WBC 3.0 L (3.8-10.6) k/uL RBC 2.79 L (3.80-5.40) m/uL Hgb 8.3 L (11.4-16.0) gm/dL Hct 25.2 L (34.0-46.0) % Neutrophils # (1.80-7.70) X 10*3/uL Lymphocytes # 0.7 L (0.90-5.00) X 10*3/uL Monocytes # (0.20-1.00) X 10*3/uL Sodium 132 L (135-145) mmol/L Chloride 97 L (96-109) mmol/L Carbon Dioxide (20.0-27.5) mmol/L Anion Gap (10.00-18.00) mmol/L BUN 41 H (9.0-27.0) mg/dL Creatinine 5.50 H (0.6-1.5) mg/dL Est GFR (CKD-EPI)AfAm (60.0-200.0) Est GFR (CKD-EPI)NonAf (60.0-200.0) BUN/Creatinine Ratio (12.00-20.00) Ratio Glucose 413 H (70-110) mg/dL POC Glucose (mg/dL) 399 H (75-99) mg/dL Calcium (8.7-10.3) mg/dL Total Bilirubin (0.30-1.20) mg/dL AST (13-35) U/L ALT (8-44) U/L Alkaline Phosphatase (41-126) U/L Total Protein (6.2-8.2) g/dL Albumin (3.8-4.9) g/dL Albumin/Globulin Ratio (1.60-3.17) g/dL Microbiology - Last 24 Hours (Table) 08/19/21 05:54 Blood Culture - Preliminary Blood No Growth after 120 hours Assessment and Plan Plan: Assessment: 1. End-stage renal disease maintained on hemodialysis on Monday schedule. 2. Hypertension with chronic kidney disease. Blood pressure labile. 3. Volume overload with pericardial and pleural effusion. 4. Diabetes mellitus. 5. Pneumonia on antibiotics. 6. Anemia of chronic kidney disease. Receiving IV iron. Also on Aranesp. 7. Metabolic acidosis secondary to chronic kidney disease. Improved postdialysis. 8. Hyponatremia secondary to hyperglycemia. 9. Mild hyperkalemia secondary to metabolic acidosis and hyperglycemia. I mproved postdialysis. 10. Chronic kidney disease mineral bone disease maintain Renvela. Phosphorus 3.6 dated 08/23/2021. 11. Chronic diastolic CHF. Plan: Short hemodialysis treatment today mostly for ultrafiltration. Another treatment tomorrow per her outpatient schedule. Tight blood sugar control. Patient has been advised multiple times to be compliant with hemodialysis treatments and medications. She has also been advised to come for extra treatments outpatient to help with ultrafiltration. Monitor vancomycin levels. Dose to be adjusted for renal function.
[2021-08-24] MEDS ORDERED: VANCOMYCIN 750 MG in SODIUM CHLORIDE 0.9% 250 ML IVPB ONE (11:00)
[2021-08-24 11:02] LABS: Glucose,Whole Blood 197 mg/dL (75-99)
[2021-08-24] MEDS: SODIUM FERRIC GLUCONAT-SUCROSE 125 MG in SODIUM CHLORIDE 0.9% 100 ML IVPB SCH (12:00)
--- NOTE | 2021-08-24 15:37 | P.CONS ---
History of Present Illness - Reason for Consult Consult date: 08/24/21 heart to treat infection, rule out malignancy Requesting physician: Williams E Sheet - Chief Complaint cough - History of Present Illness Mrs. Pizano is a very pleasant 30-year-old female with a past medical history of type 1 diabetes mellitus, end-stage renal disease on hemodialysis-2/2 mult episodes of pre-eclampsia. The last few months she has had pneumonia x 2 and an intra-abdominal infection. When she was DC'd from the hospital recently she did not have a cough. When she completed her antibiotic course the cough returned, this persisted and in general she began to physically decline. She is currently diagnosed with pneumonia being treated for the same. She denies any fevers, night sweats, unintentional weight loss, hemoptysis, acute bowel or bladder changes. There is no personal history of malignancy. No family history of malignancy or blood disorders-see documented mother with thyroid cancer. She has 3 children, lifetime nonsmoker. Labs reveal moderate anemia, hgb 8.3, normocytic, normochromic. Her WBC is slightly low at 3, differential is normal other than a slightly low lymphocyte count. Review of Systems 10 point review of systems is negative except as stated in HPI Past Medical History Past Medical History: CVA/TIA, Diabetes Mellitus, Dialysis, Eye Disorder, Hypertension, Renal Disease Additional Past Medical History / Comment(s): ESRD with hemodialysis M/W/F, IDDM type 1, DKA, neuropathy bilateral legs/feet, diabetic retinopathy/legally blind, RLS, gastritis, severe hypokalemia, fluid retention in abdomin/legs. History of Any Multi-Drug Resistant Organisms: None Reported Past Surgical History: Appendectomy, Section, Cholecystectomy Additional Past Surgical History / Comment(s): fistula left arm Past Anesthesia/Blood Transfusion Reactions: No Reported Reaction Past Psychological History: Anxiety, Depression Smoking Status: Never smoker Past Alcohol Use History: None Reported Past Drug Use History: None Reported - Past Family History Mother Family Medical History: Cancer, Hypertension Additional Family Medical History / Comment(s): Thyroid cancer, bipolar Father Family Medical History: Seizure Disorder Additional Family Medical History / Comment(s): Epilepsy Medications and Allergies Home Medications Medication Instructions Recorded Confirmed Type Aspirin EC [Ecotrin Low Dose] 81 mg PO DAILY 04/03/21 08/15/21 History Carvedilol [Coreg] 25 mg PO BID 04/03/21 08/15/21 History Ergocalciferol (Vitamin D2) 1,250 mcg PO COPELAND 04/03/21 08/15/21 History [Drisdol (50,000 Iu)] Isosorbide Mononitrate ER [Imdur] 30 mg PO HS 04/03/21 08/15/21 History Acetaminophen Tab [Tylenol] 650 mg PO Q6HR PRN #30 tab 04/09/21 08/15/21 Rx Escitalopram [Lexapro] 20 mg PO DAILY 04/17/21 08/15/21 History rOPINIRole HCL [Requip] 0.5 mg PO HS 04/17/21 08/15/21 History Sevelamer [Renvela] 800 mg PO TID-W/MEALS 30 Days #90 05/31/21 08/15/21 Rx tab Pantoprazole Sodium [Protonix] 40 mg PO BID 30 Days #60 tab 06/04/21 08/15/21 Rx Glucagon Emergency Kit 1 mg IM ONCE PRN #1 kit 06/15/21 08/15/21 Rx Melatonin 5 - 10 mg PO HS PRN 06/29/21 08/15/21 History Furosemide [Lasix] 80 mg PO BID #60 tab 07/03/21 08/15/21 Rx minoxidiL [Loniten] 2.5 mg PO BID #60 tab 07/03/21 08/15/21 Rx Insulin Lispro [humaLOG Kwikpen] See Protocol SQ AC-TID 08/02/21 08/15/21 History Amoxicillin/Potassium Clav 1 tab PO Q12HR 7 Days #14 tab 08/06/21 08/15/21 Rx [Augmentin 500-125 Tablet] INSULIN ASPART (NovoLOG) [NovoLOG 2 unit SQ AC-TID 30 Days #10 ml 08/07/21 08/15/21 Rx (formulary)] Insulin Detemir (Levemir) [Levemir] 15 unit SQ HS #10 ml 08/07/21 08/15/21 Rx cloNIDine HCL [Catapres] 0.3 mg PO TID tab 08/07/21 08/15/21 Rx Allergies Allergy/AdvReac Type Severity Reaction Status Date / Time Fish Containing Products Allergy Rash/Hives Verified 08/15/21 18:30 [Fish] iodine Allergy Anaphylaxis Verified 08/15/21 18:30 Physical Exam Vitals: Vital Signs Temp Pulse Resp BP Pulse Ox 08/24/21 13:14 16 109/57 08/24/21 09:00 82 18 08/24/21 07:38 98.6 F 82 16 231/111 99 08/24/21 02:15 150/74 08/24/21 01:30 98.7 F 84 16 211/97 100 08/23/21 21:03 100/48 08/23/21 19:26 210/106 08/23/21 19:25 98.6 F 79 16 220/101 99 08/23/21 18:00 98.4 F 73 18 110/71 Intake and Output 08/24/21 08/24/21 08/24/21 06:59 14:59 22:59 Intake Total 100 Output Total 1999 Balance -1999 Intake: Intake, IV Titration 100 Amount Piperacillin-Tazobactam 3 100 .375 gm In Sodium Chloride 0.9% 100 ml @ 25 mls/hr IVPB Q12H [facility] Rx# :[id number] Output: Hemodialysis 1999 Other: Voiding Method Diaper Incontinent Weight 47.627 kg - Constitutional General appearance: cooperative, no acute distress, thin - EENT Eyes: anicteric sclerae, EOMI ENT: hearing grossly normal, normal oropharynx - Neck Neck: no lymphadenopathy - Respiratory Respiratory: bilateral: diminished - Cardiovascular Rhythm: regular Heart sounds: normal: S1, S2 Abnormal Heart Sounds: no systolic murmur, no diastolic murmur, no rub, no S3 Gallop, no S4 Gallop, no click, no other leg Peripheral Edema: bilateral: None - Gastrointestinal General gastrointestinal: no absent bowel sounds, no decreased bowel sounds, no distended, no hepatomegaly, no hyperactive bowel sounds, normal bowel sounds, no organomegaly, no rigid, no scaphoid, soft, no splenomegaly, no tenderness, no umbilical hernia, no ventral hernia - Integumentary Integumentary: normal, pale - Neurologic patient reports vision impairment, did not perform vision acuity exam Neurologic: CNII-XII intact - Musculoskeletal Musculoskeletal: strength equal bilaterally - Psychiatric Psychiatric: A&O x's 3, appropriate affect, intact judgment & insight Results CBC & Chem 7: 08/24/21 06:56 08/24/21 06:56 Labs: Abnormal Lab Results - Last 24 Hours (Table) 08/23/21 08/24/21 08/24/21 Range/Units 20:13 01:30 06:55 WBC (3.8-10.6) k/uL RBC (3.80-5.40) m/uL Hgb (11.4-16.0) gm/dL Hct (34.0-46.0) % Lymphocytes # (1.0-4.8) k/uL Sodium (137-145) mmol/L Chloride (98-107) mmol/L BUN (7-17) mg/dL Creatinine (0.52-1.04) mg/dL Glucose (74-99) mg/dL POC Glucose (mg/dL) 150 H 393 H 399 H (75-99) mg/dL 08/24/21 08/24/21 08/24/21 Range/Units 06:56 06:56 10:59 WBC 3.0 L (3.8-10.6) k/uL RBC 2.79 L (3.80-5.40) m/uL Hgb 8.3 L (11.4-16.0) gm/dL Hct 25.2 L (34.0-46.0) % Lymphocytes # 0.7 L (1.0-4.8) k/uL Sodium 132 L (137-145) mmol/L Chloride 97 L (98-107) mmol/L BUN 41 H (7-17) mg/dL Creatinine 5.50 H (0.52-1.04) mg/dL Glucose 413 H (74-99) mg/dL POC Glucose (mg/dL) 197 H (75-99) mg/dL Microbiology - Last 24 Hours (Table) 08/19/21 05:54 Blood Culture - Preliminary Blood No Growth after 120 hours Chest x-ray: report reviewed CT scan - abdomen: report reviewed CT scan - chest: report reviewed CT scan - pelvis: report reviewed Assessment and Plan (1) Bicytopenia Narrative/Plan: Patient's hemoglobin was noted to be low back in late 2020, likely during an episode of acute illness, then normal in May 2021. Now low again, she did require 1 unit PRBCs 7 days ago. Anemia workup will be ordered. Paraproteinemia workup will be ordered No transfusions are needed at this time. WBC not normal but adequate, ANC is adequate CT CAP reviewed, no report of findings suspicious for malignancy. We'll follow up on labs. Current Visit: Yes Status: Acute Priority: High Code(s): D75.89 - OTHER SPECIFIED DISEASES OF BLOOD AND BLOOD-FORMING ORGANS SNOMED Code(s): 41944328 Plan: Doctor attests: I performed a history and physical examination of this patient, developed impression and plan of care, discussed with dictator. I agree with dictators note, documented as a scribe.
[2021-08-24 16:27] LABS: Glucose,Whole Blood 135 mg/dL (75-99)
[2021-08-24] MEDS: HYDROcodone/APAP 5-325MG 1 EACH TAB PO PRN (17:58)
[2021-08-24 19:50] LABS: Glucose,Whole Blood 401 mg/dL (75-99)
[2021-08-24] MEDS: hydrALAZINE HCL 50 MG TAB PO SCH (19:57)
[2021-08-24] MEDS: ISOSORBIDE MONONITRATE ER 30 MG TAB.ER.24H PO SCH (19:57)
--- NOTE | 2021-08-24 20:07 | P.PN ---
Subjective Progress Note Date: 08/24/21 30-year-old female came in with complaints of bilateral rib cage pain, fevers which started on Monday. Patient had an abdominal CT which showed a pneumonic infiltrate in the right lung along with some parapneumonic effusion. Patient was started on broad-spectrum antibiotics vancomycin and cefepime treating for healthcare associated pneumonia patient was recently hospitalized for couple weeks ago at that time patient was treated for intra-abdominal infection at that time. Patient has history of end-stage renal disease hemodialysis dependent. Patient has mild leukocytosis with a white blood cell count of 10 patient does have history of type 1 diabetes mellitus and diabetic nephropathy which led to hemodialysis dependence. 08/17/2021 Patient evaluated today resting in bed during hemodialysis. No acute complaints over night. Continues with dry non productive cough. States ribs are sore from coughing. Denies fever, chills, dysuria, abdominal pain. Has been having loose stools since being started on antibiotics. Blood cultures negative so far. Labs today show WBC 3.2, hgb today 6.2, repeat 8.4 s/p 1 unit PRBC which patient received during hemodialysis. Sodium repeat 135, potassium 3.3, BUN 18, creatinine 2.84, blood glucose elevated today in the 500s. Patient has not been getting levemir since admission as blood sugar was in the 20s at that time. Improved to 80s today with levemir. Continues on IV antibiotics, followed closely by infectious disease. Urine culture pending. 08/18/2021 Patient evaluated today resting in bed during hemodialysis. Patient continues with dry nonproductive cough states that her ribs are sore. Patient underwent hemodialysis today. Labs today show sodium 129, chloride 93. Creatinine 5.1. A1C 7.7, hgb 7.6. BP 129/76, Temp, heart rate 81, 100% 3L. States cough not improved with lozenges or tessalon. Added albuterol as well as she complains of mild shortness of breath as well. Blood sugar eleveted 500-600 last night, pt was started on insulin gtt and sugar dropped into the 20s. Today she is back in the 200-300s and we took her off the gtt and started her on low dose levemir. She plans to see endocrinology outpatient. 08/19/2021 Patient continues with persistant cough, non productive. Sore ribs due to coughing. Receiving sugar free lozenges, tessalon and albuterol for cough and breathing. Does complain of some shortness of breath today wearing nasal cannula. Refused incentive spirometry. 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 Blood cultures are negative so far, blood culture today repeated. ID is following closely and patient is on IV zosyn. Blood sugars are coming down slowly, although continues to have extreme lows and highs into the 400-500s. Currently today has been 132, 431, and 253. On levemir 10 units daily and sliding scale. Monitor closely for hypoglycemia. Procalcitonin level today 17.90, CRP 8.00 which both are trending down. Otherwise WBC 2.30, hemoglobin 7.1 s/p 1 unit of PRBCs. Sodium today 131, creatinine 4.5. 08/20/2021 Patient is seen and evaluated in follow-up this morning and continues with a cough and reports the shortness of breath. Patient also reports to not sleeping very well and feeling generalized fatigue. Blood sugars are uncontrolled and hyperglycemic although when attempting to place the patient on insulin drip patient drops significantly rather quickly and becomes severely hypoglycemic. Patient is maintained on IV Zosyn and vancomycin is being added infectious disea se following closely. Patient continues to have fevers and currently requiring 3 L of oxygen via nasal cannula. Blood pressure uncontrolled and will continue to monitor closely. Patient reports to some chest pain from the cough and continues to have pain on deep inspiration. Incentive spirometer at the bedside encourage the patient to continue using although patient is resistant per nursing staff. Continue with breathing inhalational treatments. 08/23/2021 Patient is seen in follow up this morning and continues on IV vanco with ID following. Nephrology following as well and patient is scheduled for hemodialysis today. Patient continues to have a cough that is causing pleuritic chest pains with coughing. Patient blood sugars also continue to fluctuate. Will consult dietitian to discuss further about diet. Patient denies worsening shortness of breath and continued on 3 L via NC as she states she is using for relief after coughing spells as she feels unable to catch her breath. Patient is afebrile. 08/24/2021 Patient is seen and evaluated today and receiving ultrafiltration today. Patient continues to have high blood pressure and have added hydralazine. Nephrology initiating oral hydralazine. Patient blood sugars continue to fluctuate and will continue sliding scale and 10 units of long acting. Patient will also have 2 units TID with meals. Encouraged oral intake. Patient reports to only carb counting at home and never has fluctuation in her blood sugars as she has here. Patient also continues on IV abx with ID following and hematology/oncology consulted for the anemia and work up in progress. REVIEW OF SYSTEMS: CONSTITUTIONAL: no malaise, reports fatigue. no Reports of fever/chills. HEENT: No recent visual problems or hearing problems. Reports sore throat. CARDIOVASCULAR: No orthopnea, PND, no palpitations, no syncope. PULMONARY: Reports shortness of breath with coughing spells, Reports persistent dry non productive cough. GASTROINTESTINAL: no Reports of loose stools, no nausea, no vomiting, no abdominal pain. Active Medications Acetaminophen (Acetaminophen Tab 325 Mg Tab) 650 mg PO Q6HR PRN PRN Reason: Mild Pain or Fever > 100.5 Last Admin: 08/20/21 19:37 Dose: 650 mg Documented by: Hydrocodone Bitart/Acetaminophen (Hydrocodone/Apap 5-325mg 1 Each Tab) 1 each PO Q6HR PRN PRN Reason: Pain Last Admin: 08/23/21 10:59 Dose: 1 each Documented by: Albuterol Sulfate (Albuterol Nebulized 2.5 Mg/3 Ml) 2.5 mg INHALATION RT-QID PRN PRN Reason: Shortness Of Breath Or Wheezing Last Admin: 08/19/21 20:55 Dose: 2.5 mg Documented by: Aspirin (Aspirin 81 Mg) 81 mg PO DAILY [facility] Last Admin: 08/24/21 09:03 Dose: 81 mg Documented by: Benzocaine/Menthol (Benzocaine/Menthol Lozeng 1 Each Lozenge) 1 each MUCOUS MEM Q4HR PRN PRN Reason: Cough Last Admin: 08/17/21 17:22 Dose: 1 each Documented by: Benzonatate (Benzonatate 100 Mg Cap) 100 mg PO TID PRN PRN Reason: Cough Last Admin: 08/23/21 11:00 Dose: 100 mg Documented by: Carvedilol (Carvedilol 12.5 Mg Tab) 25 mg PO BID-W/MEALS [facility] Last Admin: 08/24/21 07:56 Dose: 25 mg Documented by: Clonidine (Clonidine Hcl 0.1 Mg Tab) 0.3 mg PO TID [facility] Last Admin: 08/24/21 09:06 Dose: 0.3 mg Documented by: Darbepoetin Tate (Darbepoetin Tate 60 Mcg/0.3 Ml Syringe) 60 mcg SQ Q7D [facility] Last Admin: 08/19/21 14:17 Dose: 60 mcg Documented by: Diphenhydramine HCl (Diphenhydramine 50 Mg/Ml 1 Ml Vial) 25 mg IVP Q6HR PRN PRN Reason: Itching Last Admin: 08/24/21 03:30 Dose: 25 mg Documented by: Ergocalciferol (Ergocalciferol 1,250 Mcg (50,000 Iu) Capsule) 1,250 mcg PO Loo@0900 [facility] Last Admin: 08/22/21 07:36 Dose: 1,250 mcg Documented by: Escitalopram Oxalate (Escitalopram 20 Mg Tab) 20 mg PO DAILY [facility] Last Admin: 08/24/21 09:03 Dose: 20 mg Documented by: Heparin Sodium (Porcine) (Heparin Sodium,Porcine/Pf 5,000 Unit/0.5 Ml Syringe) 5,000 unit SQ Q12HR [facility] Last Admin: 08/24/21 09:11 Dose: Not Given Documented by: Hydralazine HCl (Hydralazine Hcl 20 Mg/Ml 1 Ml Vial) 10 mg IVP Q4HR PRN PRN Reason: Blood Pressure - High Last Admin: 08/24/21 08:51 Dose: 10 mg Documented by: Hydromorphone HCl (Hydromorphone 0.5 Mg/0.5 Ml Syringe) 0.5 mg IVP Q3HR PRN PRN Reason: Moderate Pain Last Admin: 08/24/21 08:51 Dose: 0.5 mg Documented by: Hydromorphone HCl (Hydromorphone 1 Mg/Ml 1 Ml Syringe) 1 mg IVP Q3HR PRN PRN Reason: Severe Pain Last Admin: 08/24/21 01:29 Dose: 1 mg Documented by: Ferric Sodium Gluconate 125 mg (/ Sodium Chloride) 110 mls @ 100 mls/hr IVPB DAILY [facility] Stop: 08/24/21 10:05 Last Admin: 08/23/21 09:06 Dose: 100 mls/hr Documented by: Insulin Human Regular 100 unit (/ Sodium Chloride) 101 mls @ 0 mls/hr IV .Q0M [facility]; Protocol Insulin Aspart (Insulin Aspart (Novolog) 100 Unit/Ml Vial) 0 unit SQ ACHS [facility]; Protocol Last Admin: 08/24/21 07:53 Dose: 7 unit Documented by: Insulin Detemir (Insulin Detemir (Levemir) 100 Unit/Ml Syr) 10 unit SQ DAILY@0700 [facility] Last Admin: 08/24/21 07:54 Dose: 10 unit Documented by: Isosorbide Mononitrate (Isosorbide Mononitrate Er 30 Mg Tab.Er.24h) 30 mg PO HS [facility] Last Admin: 08/23/21 20:58 Dose: 30 mg Documented by: Lisinopril (Lisinopril 10 Mg Tab) 10 mg PO DAILY [facility] Last Admin: 08/24/21 09:15 Dose: 10 mg Documented by: Lorazepam (Lorazepam 2 Mg/Ml Inj) 0.5 mg IV Q6HR PRN PRN Reason: Anxiety Melatonin (Melatonin 5 Mg Tablet) 5 - 10 mg PO HS PRN PRN Reason: Insomnia Last Admin: 08/23/21 21:05 Dose: 10 mg Documented by: Metoclopramide HCl (Metoclopramide 5 Mg/Ml 2 Ml Vial) 5 mg IVP BID PRN PRN Reason: Nausea And Vomiting Last Admin: 08/15/21 18:59 Dose: 5 mg Documented by: Minoxidil (Minoxidil 2.5 Mg Tab) 2.5 mg PO BID [facility] Last Admin: 08/24/21 09:05 Dose: 2.5 mg Documented by: Miscellaneous Information (Vancomycin Iv Per Pharmacy 1 Each [facility]) 1 each MISCELLANE DIRECTED PRN; Protocol PRN Reason: Per Protocol Naloxone HCl (Naloxone 0.4 Mg/Ml 1 Ml Vial) 0.2 mg IV Q2M PRN PRN Reason: Opioid Reversal Pantoprazole Sodium (Pantoprazole 40 Mg Tablet) 40 mg PO BID [facility] Last Admin: 08/24/21 09:04 Dose: 40 mg Documented by: Ropinirole HCl (Ropinirole Hcl 0.25 Mg Tab) 0.5 mg PO HS [facility] Last Admin: 08/23/21 20:58 Dose: 0.5 mg Documented by: Sevelamer Carbonate (Sevelamer 800 Mg Tab) 800 mg PO TID-W/MEALS [facility] Last Admin: 08/24/21 07:56 Dose: 800 mg Documented by: PHYSICAL EXAMINATION: GENERAL: The patient is alert and oriented x3, ill appearing, fatigued. Well developed, well nourished. HEENT: Pupils are round and equally reacting to light. EOMI. No scleral icterus. No conjunctival pallor. Normocephalic, atraumatic. No pharyngeal erythema. No thyromegaly. CARDIOVASCULAR: S1 and S2 muffled PULMONARY: Chest is diminished bilaterally with some scattered rhonchi noted ABDOMEN: Soft, nontender, nondistended, normoactive bowel sounds. No palpable organomegaly. rhoncus cough on exam MUSCULOSKELETAL: No joint swelling or deformity. EXTREMITIES: No cyanosis, clubbing, or pedal edema. NEUROLOGICAL: Gross neurological examination did not reveal any focal deficits. SKIN: No rashes. Assessment: -Sepsis: Secondary to bilateral interstitial multifocal pneumonia, possibly gram negative -End-stage renal disease, hemodialysis dependent monday -Hyponatremia secondary to chronic kidney disease, improving -Anemia, chronic -Type 1 diabetes mellitus, uncontrolled with hyperglycemia, brittle -Pleuritic chest pain and a parapneumonic effusion -Hypertension secondary to renal disease -Depression -DVT prophylaxis: subcutaneous heparin -GI prophylaxis -Full Code Plan: Recommend to continue with breathing inhalational treatments and strongly encourage incentive spirometer at least 10 times every hour while awake Patient is continued on IV vancomycin with infectious disease following closely. Patient will continue with vanco during dialysis for 10 days outpatient Patient is to continue on dialysis Monday/Monday/Monday with nephrology following closely and currently receiving dialysis at this time, again in am for ultrafiltration hematology consulted and following for anemia and additional work-up in progress. Continue to encourage increased activity as tolerated, encourage oral intake Recommend close monitoring of blood sugars and before meals and at bedtime Accu- Cheks along with as needed as patient is a brittle diabetic and blood sugars have been fluctuating, dietitian attempted to provide educational material on dietary recommendations, patient refused. Will continue current medication regimen and will also add pre-meal insulin. Monitor closely. Given multiple complex medical issues, prognosis is guarded. Possible discharge in 24-48 hours. The impression and plan of care has been dictated by Cindi Saha, Nurse Practitioner as directed. Dr. Jean MD I have performed a history and physical examination and medical decision making of this patient, discussed the same with the dictator, and agree with the dictators assessment and plan as written, documented as a scribe. Based on total visit time, I have performed more than 50% of this visit. Objective - Vital Signs Vital signs: Vital Signs Temp 98.6 F 08/24/21 07:38 Pulse 82 08/24/21 09:00 Resp 18 08/24/21 09:00 BP 231/111 08/24/21 07:38 Pulse Ox 99 08/24/21 07:38 Intake & Output 08/23/21 08/24/21 08/24/21 18:59 06:59 18:59 Intake Total 600 100 Output Total 3000 Balance -2400 100 Intake: Intake, IV Titration 100 Amount Piperacillin-Tazobactam 3 100 .375 gm In Sodium Chloride 0.9% 100 ml @ 25 mls/hr IVPB Q12H [facility] Rx# :[id number] Oral 300 Hemodialysis 300 Output: Hemodialysis 3000 Other: Voiding Method Diaper Diaper Diaper Incontinent # Voids 3 - Labs CBC & Chem 7: 08/24/21 06:56 08/24/21 06:56 Labs: Abnormal Lab Results - Last 24 Hours (Table) 08/23/21 08/23/21 08/23/21 Range/Units 04:48 09:58 11:53 WBC (3.8-10.6) k/uL RBC (3.80-5.40) m/uL Hgb (11.4-16.0) gm/dL Hct (34.0-46.0) % Neutrophils # 1.01 L (1.80-7.70) X 10*3/uL Lymphocytes # 0.76 L (0.90-5.00) X 10*3/uL Monocytes # 0.13 L (0.20-1.00) X 10*3/uL Sodium (137-145) mmol/L Chloride (98-107) mmol/L BUN (7-17) mg/dL Creatinine (0.52-1.04) mg/dL Glucose (74-99) mg/dL POC Glucose (mg/dL) 485 H 423 H (75-99) mg/dL 08/23/21 08/24/21 08/24/21 Range/Units 20:13 01:30 06:55 WBC (3.8-10.6) k/uL RBC (3.80-5.40) m/uL Hgb (11.4-16.0) gm/dL Hct (34.0-46.0) % Neutrophils # (1.80-7.70) X 10*3/uL Lymphocytes # (0.90-5.00) X 10*3/uL Monocytes # (0.20-1.00) X 10*3/uL Sodium (137-145) mmol/L Chloride (98-107) mmol/L BUN (7-17) mg/dL Creatinine (0.52-1.04) mg/dL Glucose (74-99) mg/dL POC Glucose (mg/dL) 150 H 393 H 399 H (75-99) mg/dL 08/24/21 08/24/21 Range/Units 06:56 06:56 WBC 3.0 L (3.8-10.6) k/uL RBC 2.79 L (3.80-5.40) m/uL Hgb 8.3 L (11.4-16.0) gm/dL Hct 25.2 L (34.0-46.0) % Neutrophils # (1.80-7.70) X 10*3/uL Lymphocytes # 0.7 L (0.90-5.00) X 10*3/uL Monocytes # (0.20-1.00) X 10*3/uL Sodium 132 L (137-145) mmol/L Chloride 97 L (98-107) mmol/L BUN 41 H (7-17) mg/dL Creatinine 5.50 H (0.52-1.04) mg/dL Glucose 413 H (74-99) mg/dL POC Glucose (mg/dL) (75-99) mg/dL Microbiology - Last 24 Hours (Table) 08/19/21 05:54 Blood Culture - Preliminary Blood No Growth after 120 hours
[2021-08-24 21:53] LABS: Glucose,Whole Blood 252 mg/dL (75-99)
[2021-08-25 01:50] LABS: Glucose,Whole Blood 174 mg/dL (75-99)
[2021-08-25] MEDS: hydrALAZINE HCL 20 MG/ML 1 ML VIAL IVP PRN (01:58)
[2021-08-25] MEDS: HYDROmorphone 0.5 MG/0.5 ML SYRINGE IVP PRN ×3 (01:58→20:13)
[2021-08-25 04:20] LABS: % Iron Saturation 76.86 (12.00-45.00); Rheumatoid Factor, Qnt <10 IU/mL (0-15); Total Iron Binding Capacity 239 ug/dL (228-460)
[2021-08-25 04:32] LABS: Iron 184 ug/dL (50-170)
[2021-08-25 07:12] LABS: Glucose,Whole Blood 450 mg/dL (75-99)
[2021-08-25] MEDS: HYDROcodone/APAP 5-325MG 1 EACH TAB PO PRN ×2 (09:11→16:38)
[2021-08-25] MEDS: ASPIRIN 81 MG PO SCH (09:12)
[2021-08-25] MEDS: PANTOPRAZOLE 40 MG TABLET PO SCH ×2 (09:12→20:06)
[2021-08-25] MEDS: ESCITALOPRAM 20 MG TAB PO SCH (09:12)
[2021-08-25] MEDS: hydrALAZINE HCL 50 MG TAB PO SCH (09:12)
[2021-08-25] MEDS: cloNIDine HCL 0.1 MG TAB PO SCH ×3 (09:12→22:11)
[2021-08-25] MEDS: lisinopriL 10 MG TAB PO SCH (09:12)
[2021-08-25] MEDS: INSULIN ASPART (NovoLOG) 100 UNIT/ML VIAL SQ SCH ×7 (09:13→20:12)
[2021-08-25] MEDS: carvediloL 12.5 MG TAB PO SCH ×2 (09:13→16:39)
[2021-08-25] MEDS: HEPARIN SODIUM,PORCINE/PF 5,000 UNIT/0.5 ML SYRINGE SQ SCH ×2 (09:14→20:07)
[2021-08-25] MEDS: SEVELAMER 800 MG TAB PO SCH ×3 (09:16→16:39)
[2021-08-25] MEDS: INSULIN DETEMIR (LEVEMIR) 100 UNIT/ML SYR SQ SCH (09:54)
[2021-08-25] MEDS ORDERED: BENZOCAINE SPRAY 1 CAN TOPICAL STA (09:56)
[2021-08-25] MEDS: diphenhydrAMINE 50 MG/ML 1 ML VIAL IVP PRN (10:36)
[2021-08-25 10:39] LABS: Glucose,Whole Blood 436 mg/dL (75-99)
--- NOTE | 2021-08-25 13:20 | P.PN ---
Subjective Patient is seen for follow-up for end-stage renal disease. Currently maintained on a Monday schedule but receiving daily treatments mostly for volume overload. Currently maintained on antibiotics for pneumonia. Fever has now resolved. Blood pressure continues to fluctuate with improvement post dialysis. Antihistone antibodies were positive. These were done due to pericardial effusion and the fact that patient was maintained on hydralazine and minoxidil. Patient's blood pressure has been difficult to control. Minoxidil was discontinued however hydralazine can also be associated with pericardial effusion. But given the improvement in the pericardial effusion and volume status and difficult to control hypertension I will continue with the hydralazine for now. Objective - Vital Signs Vital signs: Vital Signs Temp 98.5 F 08/25/21 07:30 Pulse 85 08/25/21 07:30 Resp 16 08/25/21 07:30 BP 177/83 08/25/21 07:30 Pulse Ox 100 08/25/21 07:30 Intake & Output 08/24/21 08/25/21 08/25/21 18:59 06:59 18:59 Intake Total 1310 Output Total 1999 Balance -690 Weight 47.627 kg Intake: Intake, IV Titration 350 Amount Sodium Ferric Gluconat- 100 Sucrose 125 mg In Sodium Chloride 0.9% 100 ml @ 100 mls/hr IVPB DAILY [facility] Rx#:[id number] Vancomycin 750 mg In 250 Sodium Chloride 0.9% 250 ml @ 125 mls/hr IVPB ONCE ONE Rx#:[id number] Oral 960 Output: Hemodialysis 1999 Other: Voiding Method Diaper Toilet Toilet Incontinent Diaper Diaper Incontinent Incontinent # Voids 0 # Bowel Movements 1 - Exam Awake, comfortable, not in any acute distress Examination of the heart S1 and S2 Examination lungs bilateral breath sounds are heard Abdomen is soft Examination lower extremities shows no significant edema [employer] exam grossly intact - Labs CBC & Chem 7: 08/24/21 06:56 08/25/21 06:51 Labs: Abnormal Lab Results - Last 24 Hours (Table) 08/24/21 08/24/21 08/24/21 Range/Units 06:56 06:56 16:25 Creatinine (0.52-1.04) mg/dL POC Glucose (mg/dL) 135 H (75-99) mg/dL Iron 184 H (50-170) ug/dL % Saturation 76.86 H (12.00-45.00) Transferrin 171.0 L (204.0-354.0) mg/dL Ferritin 1907.0 H (10.0-291.0) ng/mL RBC Folate 955 H (280 - 791) ng/mL 08/24/21 08/24/21 08/25/21 Range/Units 19:49 21:52 01:48 Creatinine (0.52-1.04) mg/dL POC Glucose (mg/dL) 401 H 252 H 174 H (75-99) mg/dL Iron (50-170) ug/dL % Saturation (12.00-45.00) Transferrin (204.0-354.0) mg/dL Ferritin (10.0-291.0) ng/mL RBC Folate (280 - 791) ng/mL 08/25/21 08/25/21 08/25/21 Range/Units 06:51 07:04 10:36 Creatinine 6.10 H (0.52-1.04) mg/dL POC Glucose (mg/dL) 450 H 436 H (75-99) mg/dL Iron (50-170) ug/dL % Saturation (12.00-45.00) Transferrin (204.0-354.0) mg/dL Ferritin (10.0-291.0) ng/mL RBC Folate (280 - 791) ng/mL Microbiology - Last 24 Hours (Table) 08/19/21 05:54 Blood Culture - Final Blood No Growth after 144 hours Assessment and Plan Assessment: 1. End-stage renal disease on hemodialysis on a Monday schedule 2. Fluid overload, improved 3. Left lower lobe pneumonia 4. Recent hospitalization for fluid overload with large pericardial effusion status post aggressive ultrafiltration of about 12 L during her stay. Antihistone antibodies were positive these are associated with use of minoxidil and hydralazine causing pericardial effusion/pericarditis 5. Hypertension partly volume sensitive improves with aggressive ultrafiltrat ion. Continue current medications 6. Anemia, no active bleeding noted status post packed RBCs transfusion, maintained on Aranesp, Plan: Hemodialysis today If blood pressure remains elevated increase hydralazine back 200 mg that patient was taking at home. Antihistone antibody was positive and this is associated with pericarditis/pericardial effusion with use of hydralazine and minoxidil however given the uncontrolled hypertension I will continue with the hydralazine. Patient's pericardial effusion was much improved. Volume status has improved as well and I believe it was partly related to overall hypervolemia/significant volume overload.
--- NOTE | 2021-08-25 13:33 | P.PN ---
Subjective Progress Note Date: 08/24/21 Principal diagnosis: Pneumonia Patient is a 30-year-old female with a past medical history significant for end-stage renal disease on dialysis presented to the hospital w ith a fever of left lower chest pain concerning for pneumonia. On today's evaluation that is 08/24/2021, , The patient denies having any fever or any chills, the patient is breathing comfortably on nasal cannula oxygen still having some lower rib cage chest pain but no worsening no vomiting no abdominal pain and no diarrhea Objective - Vital Signs Vital signs: Vital Signs Temp 98.6 F 08/24/21 07:38 Pulse 82 08/24/21 09:00 Resp 18 08/24/21 09:00 BP 231/111 08/24/21 07:38 Pulse Ox 99 08/24/21 07:38 Intake & Output 08/23/21 08/24/21 08/24/21 18:59 06:59 18:59 Intake Total 600 100 Output Total 3000 Balance -2400 100 Intake: Intake, IV Titration 100 Amount Piperacillin-Tazobactam 3 100 .375 gm In Sodium Chloride 0.9% 100 ml @ 25 mls/hr IVPB Q12H [facility] Rx# :[id number] Oral 300 Hemodialysis 300 Output: Hemodialysis 3000 Other: Voiding Method Diaper Diaper Diaper Incontinent # Voids 3 - Exam GENERAL DESCRIPTION: Middle-age female lying in bed in no distress RESPIRATORY SYSTEM: Unlabored breathing , decreased breath sounds at bases HEART: S1 S2 regular rate and rhythm , ABDOMEN: Soft , no tenderness EXTREMITIES: No edema feet - Labs CBC & Chem 7: 08/24/21 06:56 08/25/21 06:51 Labs: Abnormal Lab Results - Last 24 Hours (Table) 08/23/21 08/23/21 08/23/21 Range/Units 04:48 11:53 20:13 WBC (3.8-10.6) k/uL RBC (3.80-5.40) m/uL Hgb (11.4-16.0) gm/dL Hct (34.0-46.0) % Neutrophils # 1.01 L (1.80-7.70) X 10*3/uL Lymphocytes # 0.76 L (0.90-5.00) X 10*3/uL Monocytes # 0.13 L (0.20-1.00) X 10*3/uL Sodium (137-145) mmol/L Chloride (98-107) mmol/L BUN (7-17) mg/dL Creatinine (0.52-1.04) mg/dL Glucose (74-99) mg/dL POC Glucose (mg/dL) 423 H 150 H (75-99) mg/dL 08/24/21 08/24/21 08/24/21 Range/Units 01:30 06:55 06:56 WBC 3.0 L (3.8-10.6) k/uL RBC 2.79 L (3.80-5.40) m/uL Hgb 8.3 L (11.4-16.0) gm/dL Hct 25.2 L (34.0-46.0) % Neutrophils # (1.80-7.70) X 10*3/uL Lymphocytes # 0.7 L (0.90-5.00) X 10*3/uL Monocytes # (0.20-1.00) X 10*3/uL Sodium (137-145) mmol/L Chloride (98-107) mmol/L BUN (7-17) mg/dL Creatinine (0.52-1.04) mg/dL Glucose (74-99) mg/dL POC Glucose (mg/dL) 393 H 399 H (75-99) mg/dL 08/24/21 Range/Units 06:56 WBC (3.8-10.6) k/uL RBC (3.80-5.40) m/uL Hgb (11.4-16.0) gm/dL Hct (34.0-46.0) % Neutrophils # (1.80-7.70) X 10*3/uL Lymphocytes # (0.90-5.00) X 10*3/uL Monocytes # (0.20-1.00) X 10*3/uL Sodium 132 L (137-145) mmol/L Chloride 97 L (98-107) mmol/L BUN 41 H (7-17) mg/dL Creatinine 5.50 H (0.52-1.04) mg/dL Glucose 413 H (74-99) mg/dL POC Glucose (mg/dL) (75-99) mg/dL Microbiology - Last 24 Hours (Table) 08/19/21 05:54 Blood Culture - Preliminary Blood No Growth after 120 hours Assessment and Plan (1) Sepsis due to pneumonia Current Visit: Yes Status: Acute Code(s): J18.9 - PNEUMONIA, UNSPECIFIED ORGANISM; A41.9 - SEPSIS, UNSPECIFIED ORGANISM SNOMED Code(s): 12954807 Plan: 1patient presented to hospital with fever in this patient also have a left lower rib cage pain which is pleuritic concerning for possible pneumonia and question of possible aspiration etiology recently completed course of oral Augmentin. 2 sputum for Gram stain and culture requested but not collected 3 Patient has shown overall clinical improvement with vancomycin which will be continued through dialysis for another 10 days on discharge to finish her course of therapy and close outpatient follow-up Time with Patient: Less than 30
--- NOTE | 2021-08-25 13:35 | P.PN ---
Subjective Progress Note Date: 08/25/21 Principal diagnosis: Pneumonia Patient is a 30-year-old female with a past medical history significant for end-stage renal disease on dialysis presented to the hospital w ith a fever of left lower chest pain concerning for pneumonia. On today's evaluation that is 08/25/2021, The patient is afebrile the patient is breathing comfortably on nasal cannula oxygen, the patient denies having any chest pain no worsening cough with sputum production no abdominal pain and no diarrhea Objective - Vital Signs Vital signs: Vital Signs Temp 98.5 F 08/25/21 07:30 Pulse 85 08/25/21 07:30 Resp 16 08/25/21 07:30 BP 177/83 08/25/21 07:30 Pulse Ox 100 08/25/21 07:30 Intake & Output 08/24/21 08/25/21 08/25/21 18:59 06:59 18:59 Intake Total 1310 Output Total 1999 Balance -690 Weight 47.627 kg Intake: Intake, IV Titration 350 Amount Sodium Ferric Gluconat- 100 Sucrose 125 mg In Sodium Chloride 0.9% 100 ml @ 100 mls/hr IVPB DAILY [facility] Rx#:[id number] Vancomycin 750 mg In 250 Sodium Chloride 0.9% 250 ml @ 125 mls/hr IVPB ONCE ONE Rx#:[id number] Oral 960 Output: Hemodialysis 1999 Other: Voiding Method Diaper Toilet Toilet Incontinent Diaper Diaper Incontinent Incontinent # Voids 0 # Bowel Movements 1 - Exam GENERAL DESCRIPTION: Middle-age female lying in bed in no distress RESPIRATORY SYSTEM: Unlabored breathing , decreased breath sounds at bases HEART: S1 S2 regular rate and rhythm , ABDOMEN: Soft , no tenderness EXTREMITIES: No edema feet - Labs CBC & Chem 7: 08/24/21 06:56 08/25/21 06:51 Labs: Abnormal Lab Results - Last 24 Hours (Table) 08/24/21 08/24/21 08/24/21 Range/Units 06:56 06:56 16:25 Creatinine (0.52-1.04) mg/dL POC Glucose (mg/dL) 135 H (75-99) mg/dL Iron 184 H (50-170) ug/dL % Saturation 76.86 H (12.00-45.00) Transferrin 171.0 L (204.0-354.0) mg/dL Ferritin 1907.0 H (10.0-291.0) ng/mL RBC Folate 955 H (280 - 791) ng/mL 08/24/21 08/24/21 08/25/21 Range/Units 19:49 21:52 01:48 Creatinine (0.52-1.04) mg/dL POC Glucose (mg/dL) 401 H 252 H 174 H (75-99) mg/dL Iron (50-170) ug/dL % Saturation (12.00-45.00) Transferrin (204.0-354.0) mg/dL Ferritin (10.0-291.0) ng/mL RBC Folate (280 - 791) ng/mL 08/25/21 08/25/21 08/25/21 Range/Units 06:51 07:04 10:36 Creatinine 6.10 H (0.52-1.04) mg/dL POC Glucose (mg/dL) 450 H 436 H (75-99) mg/dL Iron (50-170) ug/dL % Saturation (12.00-45.00) Transferrin (204.0-354.0) mg/dL Ferritin (10.0-291.0) ng/mL RBC Folate (280 - 791) ng/mL Microbiology - Last 24 Hours (Table) 08/19/21 05:54 Blood Culture - Final Blood No Growth after 144 hours Assessment and Plan (1) Sepsis due to pneumonia Current Visit: Yes Status: Acute Code(s): J18.9 - PNEUMONIA, UNSPECIFIED ORGANISM; A41.9 - SEPSIS, UNSPECIFIED ORGANISM SNOMED Code(s): 71523447 Plan: 1patient presented to hospital with fever in this patient also have a left lower rib cage pain which is pleuritic concerning for possible pneumonia and question of possible aspiration etiology recently completed course of oral Augmentin. 2 sputum for Gram stain and culture requested but not collected, Blood culture has been negative 3 Patient has shown overall clinical improvement And the patient fever has resolved, patient to continue with the vancomycin pharmacy to dose through dialysis to finish a 2-week course of therapy Time with Patient: Less than 30
--- NOTE | 2021-08-25 14:11 | P.PN ---
Subjective Progress Note Date: 08/25/21 NO acute events overnight, awaiting complete work-up Objective - Vital Signs Vital signs: Vital Signs Temp 98.0 F 08/25/21 14:00 Pulse 81 08/25/21 14:00 Resp 15 08/25/21 14:00 BP 114/68 08/25/21 14:00 Pulse Ox 100 08/25/21 14:00 Intake & Output 08/24/21 08/25/21 08/25/21 18:59 06:59 18:59 Intake Total 1310 Output Total 1999 Balance -690 Weight 47.627 kg Intake: Intake, IV Titration 350 Amount Sodium Ferric Gluconat- 100 Sucrose 125 mg In Sodium Chloride 0.9% 100 ml @ 100 mls/hr IVPB DAILY [facility] Rx#:[id number] Vancomycin 750 mg In 250 Sodium Chloride 0.9% 250 ml @ 125 mls/hr IVPB ONCE ONE Rx#:[id number] Oral 960 Output: Hemodialysis 1999 Other: Voiding Method Diaper Toilet Toilet Incontinent Diaper Diaper Incontinent Incontinent # Voids 0 2 # Bowel Movements 1 - Exam - Constitutional General appearance: cooperative, no acute distress, thin - EENT Eyes: anicteric sclerae, EOMI ENT: hearing grossly normal, normal oropharynx - Neck Neck: no lymphadenopathy - Respiratory Respiratory: bilateral: diminished - Cardiovascular Rhythm: regular Heart sounds: normal: S1, S2 Abnormal Heart Sounds: no systolic murmur, no diastolic murmur, no rub, no S3 Gallop, no S4 Gallop, no click, no other leg Peripheral Edema: bilateral: None - Gastrointestinal General gastrointestinal: no absent bowel sounds, no decreased bowel sounds, no distended, no hepatomegaly, no hyperactive bowel sounds, normal bowel sounds, no organomegaly, no rigid, no scaphoid, soft, no splenomegaly, no tenderness, no umbilical hernia, no ventral hernia - Integumentary Integumentary: normal, pale - Neurologic patient reports vision impairment, did not perform vision acuity exam Neurologic: CNII-XII intact - Musculoskeletal Musculoskeletal: strength equal bilaterally - Psychiatric Psychiatric: A&O x's 3, appropriate affect, intact judgment & insight - Labs CBC & Chem 7: 08/24/21 06:56 08/25/21 06:51 Labs: Abnormal Lab Results - Last 24 Hours (Table) 08/24/21 08/24/21 08/24/21 Range/Units 06:56 06:56 16:25 Creatinine (0.52-1.04) mg/dL POC Glucose (mg/dL) 135 H (75-99) mg/dL Iron 184 H (50-170) ug/dL % Saturation 76.86 H (12.00-45.00) Transferrin 171.0 L (204.0-354.0) mg/dL Ferritin 1907.0 H (10.0-291.0) ng/mL RBC Folate 955 H (280 - 791) ng/mL 08/24/21 08/24/21 08/25/21 Range/Units 19:49 21:52 01:48 Creatinine (0.52-1.04) mg/dL POC Glucose (mg/dL) 401 H 252 H 174 H (75-99) mg/dL Iron (50-170) ug/dL % Saturation (12.00-45.00) Transferrin (204.0-354.0) mg/dL Ferritin (10.0-291.0) ng/mL RBC Folate (280 - 791) ng/mL 08/25/21 08/25/21 08/25/21 Range/Units 06:51 07:04 10:36 Creatinine 6.10 H (0.52-1.04) mg/dL POC Glucose (mg/dL) 450 H 436 H (75-99) mg/dL Iron (50-170) ug/dL % Saturation (12.00-45.00) Transferrin (204.0-354.0) mg/dL Ferritin (10.0-291.0) ng/mL RBC Folate (280 - 791) ng/mL Microbiology - Last 24 Hours (Table) 08/19/21 05:54 Blood Culture - Final Blood No Growth after 144 hours Assessment and Plan (1) Normocytic anemia Current Visit: Yes Status: Acute Code(s): D64.9 - ANEMIA, UNSPECIFIED SNOMED Code(s): 655876779 (2) Leukopenia Current Visit: Yes Status: Acute Code(s): D72.819 - DECREASED WHITE BLOOD CELL COUNT, UNSPECIFIED SNOMED Code(s): 54495192 (3) CKD (chronic kidney disease) Current Visit: No Status: Acute Code(s): N18.9 - CHRONIC KIDNEY DISEASE, UNSPECIFIED SNOMED Code(s): 323636656 (4) ESRD (end stage renal disease) on dialysis Current Visit: No Status: Acute Code(s): N18.6 - END STAGE RENAL DISEASE; Z99.2 - DEPENDENCE ON RENAL DIALYSIS SNOMED Code(s): 082193617 (5) Transaminitis Current Visit: No Status: Acute Code(s): R74.01 - ELEVATION OF LEVELS OF LIVER TRANSAMINASE LEVELS SNOMED Code(s): 392824375 Plan: Chest x-ray: report reviewed CT scan - abdomen: report reviewed CT scan - chest: report reviewed CT scan - pelvis: report reviewed Assessment and Plan (1) Bicytopenia Narrative/Plan: Patient's hemoglobin was noted to be low back in late 2020, likely during an episode of acute illness, then normal in May 2021. Now low again, she did require 1 unit PRBCs 7 days ago. Anemia workup reviewed, no Iron supplementation at this time.. Paraproteinemia pending No transfusions are needed at this time. Current Visit: Yes Status: Acute Priority: High Code(s): D75.89 - OTHER SPECIFIED DISEASES OF BLOOD AND BLOOD-FORMING ORGANS SNOMED Code(s): 71461783
[2021-08-25 16:25] LABS: Glucose,Whole Blood 30 mg/dL (75-99)
[2021-08-25] MEDS ORDERED: DEXTROSE 50% SYRINGE 50 ML IVP STA (16:28)
--- NOTE | 2021-08-25 16:33 | P.PN ---
Subjective Progress Note Date: 08/25/21 30-year-old female came in with complaints of bilateral rib cage pain, fevers which started on Monday. Patient had an abdominal CT which showed a pneumonic infiltrate in the right lung along with some parapneumonic effusion. Patient was started on broad-spectrum antibiotics vancomycin and cefepime treating for healthcare associated pneumonia patient was recently hospitalized for couple weeks ago at that time patient was treated for intra-abdominal infection at that time. Patient has history of end-stage renal disease hemodialysis dependent. Patient has mild leukocytosis with a white blood cell count of 10 patient does have history of type 1 diabetes mellitus and diabetic nephropathy which led to hemodialysis dependence. 08/17/2021 Patient evaluated today resting in bed during hemodialysis. No acute complaints over night. Continues with dry non productive cough. States ribs are sore from coughing. Denies fever, chills, dysuria, abdominal pain. Has been having loose stools since being started on antibiotics. Blood cultures negative so far. Labs today show WBC 3.2, hgb today 6.2, repeat 8.4 s/p 1 unit PRBC which patient received during hemodialysis. Sodium repeat 135, potassium 3.3, BUN 18, creatinine 2.84, blood glucose elevated today in the 500s. Patient has not been getting levemir since admission as blood sugar was in the 20s at that time. Improved to 80s today with levemir. Continues on IV antibiotics, followed closely by infectious disease. Urine culture pending. 08/18/2021 Patient evaluated today resting in bed during hemodialysis. Patient continues with dry nonproductive cough states that her ribs are sore. Patient underwent hemodialysis today. Labs today show sodium 129, chloride 93. Creatinine 5.1. A1C 7.7, hgb 7.6. BP 129/76, Temp, heart rate 81, 100% 3L. States cough not improved with lozenges or tessalon. Added albuterol as well as she complains of mild shortness of breath as well. Blood sugar eleveted 500-600 last night, pt was started on insulin gtt and sugar dropped into the 20s. Today she is back in the 200-300s and we took her off the gtt and started her on low dose levemir. She plans to see endocrinology outpatient. 08/19/2021 Patient continues with persistant cough, non productive. Sore ribs due to coughing. Receiving sugar free lozenges, tessalon and albuterol for cough and breathing. Does complain of some shortness of breath today wearing nasal cannula. Refused incentive spirometry. 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 Blood cultures are negative so far, blood culture today repeated. ID is following closely and patient is on IV zosyn. Blood sugars are coming down slowly, although continues to have extreme lows and highs into the 400-500s. Currently today has been 132, 431, and 253. On levemir 10 units daily and sliding scale. Monitor closely for hypoglycemia. Procalcitonin level today 17.90, CRP 8.00 which both are trending down. Otherwise WBC 2.30, hemoglobin 7.1 s/p 1 unit of PRBCs. Sodium today 131, creatinine 4.5. 08/20/2021 Patient is seen and evaluated in follow-up this morning and continues with a cough and reports the shortness of breath. Patient also reports to not sleeping very well and feeling generalized fatigue. Blood sugars are uncontrolled and hyperglycemic although when attempting to place the patient on insulin drip patient drops significantly rather quickly and becomes severely hypoglycemic. Patient is maintained on IV Zosyn and vancomycin is being added infectious disea se following closely. Patient continues to have fevers and currently requiring 3 L of oxygen via nasal cannula. Blood pressure uncontrolled and will continue to monitor closely. Patient reports to some chest pain from the cough and continues to have pain on deep inspiration. Incentive spirometer at the bedside encourage the patient to continue using although patient is resistant per nursing staff. Continue with breathing inhalational treatments. 08/23/2021 Patient is seen in follow up this morning and continues on IV vanco with ID following. Nephrology following as well and patient is scheduled for hemodialysis today. Patient continues to have a cough that is causing pleuritic chest pains with coughing. Patient blood sugars also continue to fluctuate. Will consult dietitian to discuss further about diet. Patient denies worsening shortness of breath and continued on 3 L via NC as she states she is using for relief after coughing spells as she feels unable to catch her breath. Patient is afebrile. 08/24/2021 Patient is seen and evaluated today and receiving ultrafiltration today. Patient continues to have high blood pressure and have added hydralazine. Nephrology initiating oral hydralazine. Patient blood sugars continue to fluctuate and will continue sliding scale and 10 units of long acting. Patient will also have 2 units TID with meals. Encouraged oral intake. Patient reports to only carb counting at home and never has fluctuation in her blood sugars as she has here. Patient also continues on IV abx with ID following and hematology/oncology consulted for the anemia and work up in progress. 08/25/2021 She is seen and evaluated in follow-up this morning scheduled to receive hemodialysis as this is her normal scheduled Monday/Monday/Monday with multiple medical consultations following including infectious disease and nephrology. Patient will need to continue with Vanco during dialysis for the next two weeks. Patient continues to report chest pains with the cough and shortness of breath. Will order home 02 eval. Encouraged oral intake and increased activity as tolerated. Blood sugars continue to be uncontrolled and will continue current regimen and monitor closely. Discussed again with patient about compliance and importance of nutrition. Patient is afebrile. ID following REVIEW OF SYSTEMS: CONSTITUTIONAL: no malaise, reports fatigue. no Reports of fever/chills. HEENT: No recent visual problems or hearing problems. Reports sore throat. CARDIOVASCULAR: No orthopnea, PND, no palpitations, no syncope. PULMONARY: Reports shortness of breath with coughing spells, Reports persistent dry non productive cough. GASTROINTESTINAL: no Reports of loose stools, no nausea, no vomiting, no abdominal pain. Active Medications Acetaminophen (Acetaminophen Tab 325 Mg Tab) 650 mg PO Q6HR PRN PRN Reason: Mild Pain or Fever > 100.5 Last Admin: 08/20/21 19:37 Dose: 650 mg Documented by: Hydrocodone Bitart/Acetaminophen (Hydrocodone/Apap 5-325mg 1 Each Tab) 1 each PO Q6HR PRN PRN Reason: Pain Last Admin: 08/25/21 09:11 Dose: 1 each Documented by: Albuterol Sulfate (Albuterol Nebulized 2.5 Mg/3 Ml) 2.5 mg INHALATION RT-QID PRN PRN Reason: Shortness Of Breath Or Wheezing Last Admin: 08/19/21 20:55 Dose: 2.5 mg Documented by: Aspirin (Aspirin 81 Mg) 81 mg PO DAILY CHAD Last Admin: 08/25/21 09:12 Dose: 81 mg Documented by: Benzocaine/Menthol (Benzocaine/Menthol Lozeng 1 Each Lozenge) 1 each MUCOUS MEM Q4HR PRN PRN Reason: Cough Last Admin: 08/17/21 17:22 Dose: 1 each Documented by: Benzonatate (Benzonatate 100 Mg Cap) 100 mg PO TID PRN PRN Reason: Cough Last Admin: 08/23/21 11:00 Dose: 100 mg Documented by: Carvedilol (Carvedilol 12.5 Mg Tab) 25 mg PO BID-W/MEALS [facility] Last Admin: 08/25/21 09:13 Dose: 25 mg Documented by: Clonidine (Clonidine Hcl 0.1 Mg Tab) 0.3 mg PO TID [facility] Last Admin: 08/25/21 09:12 Dose: 0.3 mg Documented by: Darbepoetin Tate (Darbepoetin Tate 60 Mcg/0.3 Ml Syringe) 60 mcg SQ Q7D [facility] Last Admin: 08/19/21 14:17 Dose: 60 mcg Documented by: Diphenhydramine HCl (Diphenhydramine 50 Mg/Ml 1 Ml Vial) 25 mg IVP Q6HR PRN PRN Reason: Itching Last Admin: 08/24/21 20:05 Dose: 25 mg Documented by: Ergocalciferol (Ergocalciferol 1,250 Mcg (50,000 Iu) Capsule) 1,250 mcg PO Loo@0900 [facility] Last Admin: 08/22/21 07:36 Dose: 1,250 mcg Documented by: Escitalopram Oxalate (Escitalopram 20 Mg Tab) 20 mg PO DAILY [facility] Last Admin: 08/25/21 09:12 Dose: 20 mg Documented by: Heparin Sodium (Porcine) (Heparin Sodium,Porcine/Pf 5,000 Unit/0.5 Ml Syringe) 5,000 unit SQ Q12HR [facility] Last Admin: 08/25/21 09:14 Dose: Not Given Documented by: Hydralazine HCl (Hydralazine Hcl 20 Mg/Ml 1 Ml Vial) 10 mg IVP Q4HR PRN PRN Reason: Blood Pressure - High Last Admin: 08/25/21 01:58 Dose: 10 mg Documented by: Hydralazine HCl (Hydralazine Hcl 50 Mg Tab) 50 mg PO TID [facility] Last Admin: 08/25/21 09:12 Dose: 50 mg Documented by: Hydromorphone HCl (Hydromorphone 0.5 Mg/0.5 Ml Syringe) 0.5 mg IVP Q3HR PRN PRN Reason: Moderate Pain Last Admin: 08/25/21 01:58 Dose: 0.5 mg Documented by: Hydromorphone HCl (Hydromorphone 1 Mg/Ml 1 Ml Syringe) 1 mg IVP Q3HR PRN PRN Reason: Severe Pain Last Admin: 08/24/21 01:29 Dose: 1 mg Documented by: Insulin Human Regular 100 unit (/ Sodium Chloride) 101 mls @ 0 mls/hr IV .Q0M [facility]; Protocol Insulin Aspart (Insulin Aspart (Novolog) 100 Unit/Ml Vial) 0 unit SQ ACHS [facility]; Protocol Last Admin: 08/25/21 09:14 Dose: 10 unit Documented by: Insulin Aspart (Insulin Aspart (Novolog) 100 Unit/Ml Vial) 2 unit SQ AC-TID [facility] Last Admin: 08/25/21 09:13 Dose: 2 unit Documented by: Insulin Detemir (Insulin Detemir (Levemir) 100 Unit/Ml Syr) 10 unit SQ DAILY@0700 [facility] Last Admin: 08/24/21 07:54 Dose: 10 unit Documented by: Isosorbide Mononitrate (Isosorbide Mononitrate Er 30 Mg Tab.Er.24h) 30 mg PO HS [facility] Last Admin: 08/24/21 19:57 Dose: 30 mg Documented by: Lisinopril (Lisinopril 10 Mg Tab) 10 mg PO DAILY [facility] Last Admin: 08/25/21 09:12 Dose: 10 mg Documented by: Lorazepam (Lorazepam 2 Mg/Ml Inj) 0.5 mg IV Q6HR PRN PRN Reason: Anxiety Melatonin (Melatonin 5 Mg Tablet) 5 - 10 mg PO HS PRN PRN Reason: Insomnia Last Admin: 08/23/21 21:05 Dose: 10 mg Documented by: Metoclopramide HCl (Metoclopramide 5 Mg/Ml 2 Ml Vial) 5 mg IVP BID PRN PRN Reason: Nausea And Vomiting Last Admin: 08/15/21 18:59 Dose: 5 mg Documented by: Miscellaneous Information (Vancomycin Iv Per Pharmacy 1 Each [facility]) 1 each MISCELLANE DIRECTED PRN; Protocol PRN Reason: Per Protocol Naloxone HCl (Naloxone 0.4 Mg/Ml 1 Ml Vial) 0.2 mg IV Q2M PRN PRN Reason: Opioid Reversal Pantoprazole Sodium (Pantoprazole 40 Mg Tablet) 40 mg PO BID [facility] Last Admin: 08/25/21 09:12 Dose: 40 mg Documented by: Ropinirole HCl (Ropinirole Hcl 0.25 Mg Tab) 0.5 mg PO HS [facility] Last Admin: 08/24/21 19:57 Dose: 0.5 mg Documented by: Sevelamer Carbonate (Sevelamer 800 Mg Tab) 800 mg PO TID-W/MEALS [facility] Last Admin: 08/25/21 09:16 Dose: Not Given Documented by: PHYSICAL EXAMINATION: GENERAL: The patient is alert and oriented x3, ill appearing, fatigued. Well developed, well nourished. HEENT: Pupils are round and equally reacting to light. EOMI. No scleral icterus. No conjunctival pallor. Normocephalic, atraumatic. No pharyngeal erythema. No thyromegaly. CARDIOVASCULAR: S1 and S2 muffled PULMONARY: Chest is diminished bilaterally with some scattered rhonchi noted ABDOMEN: Soft, nontender, nondistended, normoactive bowel sounds. No palpable organomegaly. dry cough on exam MUSCULOSKELETAL: No joint swelling or deformity. EXTREMITIES: No cyanosis, clubbing, or pedal edema. NEUROLOGICAL: Gross neurological examination did not reveal any focal deficits. SKIN: No rashes. Assessment: -Sepsis: Secondary to bilateral interstitial multifocal pneumonia, possibly gram negative -End-stage renal disease, hemodialysis dependent monday -Hyponatremia secondary to chronic kidney disease, improving -Anemia, chronic -Type 1 diabetes mellitus, uncontrolled with hyperglycemia as well as hypoglycemia, brittle -Pleuritic chest pain and a parapneumonic effusion -Hypertension secondary to renal disease -Depression -DVT prophylaxis: subcutaneous heparin -GI prophylaxis -Full Code Plan: Recommend to continue with breathing inhalational treatments and strongly encourage incentive spirometer at least 10 times every hour while awake. Per nursing staff, patient is refusing IS use due to having chest pains with extensive cough. Encouraged increased activity as tolerated. May need to evaluate for home 02 as staffing administrator reported oxygen desaturatng quickly on room air. Wean FI02 as tolerated. Patient was maintained on IV vancomycin with infectious disease following closely. Patient will continue with vanco during dialysis for 14 days outpatient Patient is to continue on dialysis Monday/Monday/Monday with nephrology following closely and currently receiving dialysis at this time hematology consulted and following for anemia and additional work-up in progress. Continue to encourage increased activity as tolerated, encourage oral intake Recommend close monitoring of blood sugars and before meals and at bedtime Accu- Cheks along with as needed as patient is a brittle diabetic and blood sugars have been fluctuating. Will continue current medication regimen and monitor closely. Given multiple complex medical issues, prognosis is guarded. Possible discharge in 24-48 hours. The impression and plan of care has been dictated by Cindi Saha, Nurse Practitioner as directed. Dr. Jean MD I have performed a history and physical examination and medical decision making of this patient, discussed the same with the dictator, and agree with the dictators assessment and plan as written, documented as a scribe. Based on total visit time, I have performed more than 50% of this visit. Objective - Vital Signs Vital signs: Vital Signs Temp 98.5 F 08/25/21 07:30 Pulse 85 08/25/21 07:30 Resp 16 08/25/21 07:30 BP 177/83 08/25/21 07:30 Pulse Ox 100 08/25/21 07:30 Intake & Output 08/24/21 08/25/21 08/25/21 18:59 06:59 18:59 Intake Total 1310 Output Total 1999 Balance -690 Weight 47.627 kg Intake: Intake, IV Titration 350 Amount Sodium Ferric Gluconat- 100 Sucrose 125 mg In Sodium Chloride 0.9% 100 ml @ 100 mls/hr IVPB DAILY [facility] Rx#:[id number] Vancomycin 750 mg In 250 Sodium Chloride 0.9% 250 ml @ 125 mls/hr IVPB ONCE ONE Rx#:[id number] Oral 960 Output: Hemodialysis 1999 Other: Voiding Method Diaper Toilet Incontinent Diaper Incontinent # Voids 0 # Bowel Movements 1 - Labs CBC & Chem 7: 08/24/21 06:56 08/25/21 06:51 Labs: Abnormal Lab Results - Last 24 Hours (Table) 08/24/21 08/24/21 08/24/21 Range/Units 06:56 10:59 16:25 Creatinine (0.52-1.04) mg/dL POC Glucose (mg/dL) 197 H 135 H (75-99) mg/dL Iron 184 H (50-170) ug/dL % Saturation 76.86 H (12.00-45.00) Transferrin 171.0 L (204.0-354.0) mg/dL Ferritin 1907.0 H (10.0-291.0) ng/mL 08/24/21 08/24/21 08/25/21 Range/Units 19:49 21:52 01:48 Creatinine (0.52-1.04) mg/dL POC Glucose (mg/dL) 401 H 252 H 174 H (75-99) mg/dL Iron (50-170) ug/dL % Saturation (12.00-45.00) Transferrin (204.0-354.0) mg/dL Ferritin (10.0-291.0) ng/mL 08/25/21 08/25/21 Range/Units 06:51 07:04 Creatinine 6.10 H (0.52-1.04) mg/dL POC Glucose (mg/dL) 450 H (75-99) mg/dL Iron (50-170) ug/dL % Saturation (12.00-45.00) Transferrin (204.0-354.0) mg/dL Ferritin (10.0-291.0) ng/mL Microbiology - Last 24 Hours (Table) 08/19/21 05:54 Blood Culture - Final Blood No Growth after 144 hours
[2021-08-25 16:36] LABS: Glucose,Whole Blood 28 mg/dL (75-99)
[2021-08-25] MEDS: diphenhydrAMINE 25 MG CAP PO PRN (16:38)
[2021-08-25] MEDS: hydrALAZINE HCL 25 MG TAB PO SCH ×2 (16:38→20:06)
[2021-08-25 16:48] LABS: Glucose,Whole Blood 52 mg/dL (75-99)
[2021-08-25 17:05] LABS: Glucose,Whole Blood 128 mg/dL (75-99)
[2021-08-25] MEDS: ISOSORBIDE MONONITRATE ER 30 MG TAB.ER.24H PO SCH (20:06)
[2021-08-25 20:08] LABS: Glucose,Whole Blood 323 mg/dL (75-99)
[2021-08-25] MEDS: MELATONIN 5 MG TABLET PO PRN (22:16)
[2021-08-25 22:35] LABS: Basophils # (A) 0.01 X 10*3/uL (0.00-0.10); Basophils % (A) 0.3 %; Eosinophils % (A) 6.3 %; HCT 23.7 % (37.2-46.3); HGB 7.8 g/dL (12.0-15.0); Immature Grans, Automated 1.6 %; Lymphocytes # (A) 0.49 X 10*3/uL (0.90-5.00); Lymphocytes % (A) 15.6 %; MCH 28.7 pg (27.0-32.0); MCHC 32.9 g/dL (32.0-37.0); MCV 87.1 fL (80.0-97.0); Mean Platelet Volume 10.3 fL (9.5-12.2); Monocytes # (A) 0.35 X 10*3/uL (0.20-1.00); Monocytes % (A) 11.1 %; NRBC Per 100 WBC 0 /100 WBCS (0.0-0.0); Neutrophils # (A) 2.05 X 10*3/uL (1.80-7.70); Neutrophils % (A) 65.1 %; Platelet Count 247 X 10*3/uL (140-440); RBC 2.72 X 10*6/uL (4.10-5.20); RDW 13.6 % (11.5-14.5); Reticulocyte % 2.01 % (0.10-1.80); WBC 3.15 X 10*3/uL (4.50-10.00)
[2021-08-26] MEDS: hydrALAZINE HCL 20 MG/ML 1 ML VIAL IVP PRN (00:53)
[2021-08-26] MEDS: HYDROmorphone 0.5 MG/0.5 ML SYRINGE IVP PRN ×5 (01:03→20:46)
[2021-08-26 02:54] LABS: Glucose,Whole Blood 155 mg/dL (75-99)
[2021-08-26 05:03] LABS: ALT 40 U/L (4-34); AST 30 U/L (14-36); African American GFR (CKD) 14 (>60 ml/min/1.73 sqM); Albumin 3.4 g/dL (3.5-5.0); Albumin/Globulin Ratio 1.2; Alkaline Phosphatase 165 U/L (38-126); Anion Gap 12 mmol/L; Blood Urea Nitrogen 31 mg/dL (7-17); Calcium 8.8 mg/dL (8.4-10.2); Carbon Dioxide 22 mmol/L (22-30); Chloride 102 mmol/L (98-107); Globulin 2.8 g/dL; Glucose 253 mg/dL (74-99); Non-African American GFR(CKD) 12 (>60 ml/min/1.73 sqM); Potassium 4.4 mmol/L (3.5-5.1); Sodium 136 mmol/L (137-145); Total Bilirubin 0.5 mg/dL (0.2-1.3); Total Protein 6.2 g/dL (6.3-8.2)
[2021-08-26 05:09] LABS: Vancomycin,Random 16.6 ug/mL
[2021-08-26 07:12] LABS: Glucose,Whole Blood 422 mg/dL (75-99)
[2021-08-26] MEDS: INSULIN DETEMIR (LEVEMIR) 100 UNIT/ML SYR SQ SCH (07:24)
[2021-08-26] MEDS: INSULIN ASPART (NovoLOG) 100 UNIT/ML VIAL SQ SCH ×7 (07:25→20:45)
[2021-08-26] MEDS: PANTOPRAZOLE 40 MG TABLET PO SCH ×2 (07:26→20:45)
[2021-08-26] MEDS: ESCITALOPRAM 20 MG TAB PO SCH (07:26)
[2021-08-26] MEDS: lisinopriL 10 MG TAB PO SCH (07:26)
[2021-08-26] MEDS: HEPARIN SODIUM,PORCINE/PF 5,000 UNIT/0.5 ML SYRINGE SQ SCH ×3 (07:26→20:46)
[2021-08-26] MEDS: hydrALAZINE HCL 25 MG TAB PO SCH ×3 (07:26→20:45)
[2021-08-26] MEDS: SEVELAMER 800 MG TAB PO SCH ×3 (07:27→16:08)
[2021-08-26] MEDS: carvediloL 12.5 MG TAB PO SCH ×2 (07:33→16:08)
[2021-08-26] MEDS: ASPIRIN 81 MG PO SCH (07:33)
[2021-08-26] MEDS: cloNIDine HCL 0.1 MG TAB PO SCH ×3 (07:34→22:24)
[2021-08-26 08:47] LABS: Methylmalonic Acid 1.14 umol/L (<0.40)
[2021-08-26] MEDS ORDERED: VANCOMYCIN 750 MG in SODIUM CHLORIDE 0.9% 250 ML IVPB ONE (09:00)
[2021-08-26 09:13] LABS: Basophils # (A) 0.02 X 10*3/uL (0.00-0.10); Basophils % (A) 0.4 %; Eosinophils # (A) 0.29 X 10*3/uL (0.04-0.35); Eosinophils % (A) 6.4 %; HCT 22.7 % (37.2-46.3); HGB 7.3 g/dL (12.0-15.0); Immature Grans, Automated 1.1 %; Lymphocytes # (A) 0.85 X 10*3/uL (0.90-5.00); Lymphocytes % (A) 18.7 %; MCH 29.2 pg (27.0-32.0); MCHC 32.2 g/dL (32.0-37.0); MCV 90.8 fL (80.0-97.0); Mean Platelet Volume 10.4 fL (9.5-12.2); Monocytes # (A) 0.39 X 10*3/uL (0.20-1.00); Monocytes % (A) 8.6 %; NRBC Per 100 WBC 0 /100 WBCS (0.0-0.0); Neutrophils # (A) 2.94 X 10*3/uL (1.80-7.70); Neutrophils % (A) 64.8 %; Platelet Count 258 X 10*3/uL (140-440); RDW 13.8 % (11.5-14.5); WBC 4.54 X 10*3/uL (4.50-10.00)
--- NOTE | 2021-08-26 10:01 | XR ---
EXAMINATION TYPE: XR chest 1V portable DATE OF EXAM: 08/26/2021 Comparison: 08/19/2021 Clinical History: 30-year-old female short of breath Findings: Cardiac/pericardiac silhouette is mildly moderately enlarged. Interstitial prominence. Some hazy lowe r lung densities relating to overlying soft tissue. No rubens consolidation or pleural effusion. Impression: Moderate enlargement of the cardiac/pericardiac silhouette compatible with known sizable pericardial effusion. Mild patchy bilateral interstitial infiltrates were more apparent on CT and show slight imp rovement from 08/19/2021.
[2021-08-26 11:23] LABS: Glucose,Whole Blood 153 mg/dL (75-99)
[2021-08-26 11:34] LABS: Protein, Total 6.1 g/dL (6.2-8.2)
[2021-08-26] MEDS: DARBEPOETIN ALFA 60 MCG/0.3 ML SYRINGE SQ SCH (11:52)
--- NOTE | 2021-08-26 12:56 | P.PN ---
Subjective Patient is seen for follow-up for end-stage renal disease. Currently maintained on a Monday schedule but receiving daily treatments mostly for volume overload. Currently maintained on antibiotics for pneumonia. Fever has now resolved. Blood pressure continues to fluctuate with improvement post dialysis. Antihistone antibodies were positive. These were done due to pericardial effusion and the fact that patient was maintained on hydralazine and minoxidil. Patient's blood pressure has been difficult to control. Minoxidil was discontinued however hydralazine can also be associated with pericardial effusion. But given the improvement in the pericardial effusion and volume status and difficult to control hypertension I will continue with the hydralazine for now. Patient is having an echocardiogram today she is comfortable , no significant complaints today. Scheduled for hemodialysis in a.m. Objective - Vital Signs Vital signs: Vital Signs Temp 98.3 F 08/26/21 08:00 Pulse 86 08/26/21 08:00 Resp 18 08/26/21 08:00 BP 172/82 08/26/21 08:00 Pulse Ox 99 08/26/21 09:11 Intake & Output 08/25/21 08/26/21 08/26/21 18:59 06:59 18:59 Output Total 3000 Balance -3000 Output: Hemodialysis 3000 Other: Voiding Method Toilet Toilet Diaper Diaper Diaper Incontinent Incontinent Incontinent # Voids 2 2 - Exam Awake, comfortable, not in any acute distress Examination of the heart S1 and S2 Examination lungs bilateral breath sounds are heard Abdomen is soft Examination lower extremities shows no significant edema [employer] exam grossly intact - Labs CBC & Chem 7: 08/26/21 04:34 08/26/21 04:34 Labs: Abnormal Lab Results - Last 24 Hours (Table) 08/24/21 08/24/21 08/25/21 Range/Units 06:56 06:56 15:25 WBC 3.15 L (4.50-10.00) X 10*3/uL RBC 2.72 L (4.10-5.20) X 10*6/uL Hgb 7.8 L (12.0-15.0) g/dL Hct 23.7 L (37.2-46.3) % Immature Gran # 0.05 H (0.00-0.04) X 10*3/uL Lymphocytes # 0.49 L (0.90-5.00) X 10*3/uL Retic Count 2.01 H (0.10-1.80) % Sodium (137-145) mmol/L BUN (7-17) mg/dL Creatinine (0.52-1.04) mg/dL Glucose (74-99) mg/dL POC Glucose (mg/dL) (75-99) mg/dL ALT (4-34) U/L Alkaline Phosphatase (38-126) U/L Total Protein (6.3-8.2) g/dL Total Protein (PEP) 6.1 L (6.2-8.2) g/dL Albumin (3.5-5.0) g/dL Methylmalonic Acid 1.14 H (<0.40) umol/L 08/25/21 08/25/21 08/25/21 Range/Units 16:15 16:30 16:46 WBC (4.50-10.00) X 10*3/uL RBC (4.10-5.20) X 10*6/uL Hgb (12.0-15.0) g/dL Hct (37.2-46.3) % Immature Gran # (0.00-0.04) X 10*3/uL Lymphocytes # (0.90-5.00) X 10*3/uL Retic Count (0.10-1.80) % Sodium (137-145) mmol/L BUN (7-17) mg/dL Creatinine (0.52-1.04) mg/dL Glucose (74-99) mg/dL POC Glucose (mg/dL) 30 L 28 L 52 L (75-99) mg/dL ALT (4-34) U/L Alkaline Phosphatase (38-126) U/L Total Protein (6.3-8.2) g/dL Total Protein (PEP) (6.2-8.2) g/dL Albumin (3.5-5.0) g/dL Methylmalonic Acid (<0.40) umol/L 08/25/21 08/25/21 08/26/21 Range/Units 17:01 20:07 02:52 WBC (4.50-10.00) X 10*3/uL RBC (4.10-5.20) X 10*6/uL Hgb (12.0-15.0) g/dL Hct (37.2-46.3) % Immature Gran # (0.00-0.04) X 10*3/uL Lymphocytes # (0.90-5.00) X 10*3/uL Retic Count (0.10-1.80) % Sodium (137-145) mmol/L BUN (7-17) mg/dL Creatinine (0.52-1.04) mg/dL Glucose (74-99) mg/dL POC Glucose (mg/dL) 128 H 323 H 155 H (75-99) mg/dL ALT (4-34) U/L Alkaline Phosphatase (38-126) U/L Total Protein (6.3-8.2) g/dL Total Protein (PEP) (6.2-8.2) g/dL Albumin (3.5-5.0) g/dL Methylmalonic Acid (<0.40) umol/L 08/26/21 08/26/21 08/26/21 Range/Units 04:34 04:34 07:10 WBC (4.50-10.00) X 10*3/uL RBC 2.50 L (4.10-5.20) X 10*6/uL Hgb 7.3 L (12.0-15.0) g/dL Hct 22.7 L (37.2-46.3) % Immature Gran # 0.05 H (0.00-0.04) X 10*3/uL Lymphocytes # 0.85 L (0.90-5.00) X 10*3/uL Retic Count (0.10-1.80) % Sodium 136 L (137-145) mmol/L BUN 31 H (7-17) mg/dL Creatinine 4.52 H (0.52-1.04) mg/dL Glucose 253 H (74-99) mg/dL POC Glucose (mg/dL) 422 H (75-99) mg/dL ALT 40 H (4-34) U/L Alkaline Phosphatase 165 H (38-126) U/L Total Protein 6.2 L (6.3-8.2) g/dL Total Protein (PEP) (6.2-8.2) g/dL Albumin 3.4 L (3.5-5.0) g/dL Methylmalonic Acid (<0.40) umol/L 08/26/21 Range/Units 11:21 WBC (4.50-10.00) X 10*3/uL RBC (4.10-5.20) X 10*6/uL Hgb (12.0-15.0) g/dL Hct (37.2-46.3) % Immature Gran # (0.00-0.04) X 10*3/uL Lymphocytes # (0.90-5.00) X 10*3/uL Retic Count (0.10-1.80) % Sodium (137-145) mmol/L BUN (7-17) mg/dL Creatinine (0.52-1.04) mg/dL Glucose (74-99) mg/dL POC Glucose (mg/dL) 153 H (75-99) mg/dL ALT (4-34) U/L Alkaline Phosphatase (38-126) U/L Total Protein (6.3-8.2) g/dL Total Protein (PEP) (6.2-8.2) g/dL Albumin (3.5-5.0) g/dL Methylmalonic Acid (<0.40) umol/L Assessment and Plan Assessment: 1. End-stage renal disease on hemodialysis on a Monday schedule 2. Fluid overload, improved 3. Left lower lobe pneumonia 4. Recent hospitalization for fluid overload with large pericardial effusion status post aggressive ultrafiltration of about 12 L during her stay. Antihistone antibodies were positive these are associated with use of minoxidil and hydralazine causing pericardial effusion/pericarditis. However the pe ricardial effusion was much smaller on the CT and I believe this was mostly associated with overall volume overload and has improved with aggressive dialysis during her last admission. 5. Hypertension partly volume sensitive improves with aggressive ultrafiltration. Continue current medications 6. Anemia, no active bleeding noted status post packed RBCs transfusion, maintained on Aranesp, Plan: Hemodialysis in a.m. If blood pressure remains elevated increase hydralazine back to 100 mg that patient was taking at home. Antihistone antibody was positive and this is associated with pericarditis/pericardial effusion with use of hydralazine and minoxidil however given the uncontrolled hypertension I will continue with the hydralazine. Patient's pericardial effusion was much improved. Volume status has improved as well and I believe it was partly related to overall hypervolemia/significant volume overload. Will follow-up on the pericardial effusion on the echocardiogram being done today.
[2021-08-26 13:18] LABS: Albumin 3.47 g/dL (3.80-4.90)
--- NOTE | 2021-08-26 14:12 | P.PN ---
Subjective Progress Note Date: 08/26/21 30-year-old female came in with complaints of bilateral rib cage pain, fevers which started on Monday. Patient had an abdominal CT which showed a pneumonic infiltrate in the right lung along with some parapneumonic effusion. Patient was started on broad-spectrum antibiotics vancomycin and cefepime treating for healthcare associated pneumonia patient was recently hospitalized for couple weeks ago at that time patient was treated for intra-abdominal infection at that time. Patient has history of end-stage renal disease hemodialysis dependent. Patient has mild leukocytosis with a white blood cell count of 10 patient does have history of type 1 diabetes mellitus and diabetic nephropathy which led to hemodialysis dependence. 08/17/2021 Patient evaluated today resting in bed during hemodialysis. No acute complaints over night. Continues with dry non productive cough. States ribs are sore from coughing. Denies fever, chills, dysuria, abdominal pain. Has been having loose stools since being started on antibiotics. Blood cultures negative so far. Labs today show WBC 3.2, hgb today 6.2, repeat 8.4 s/p 1 unit PRBC which patient received during hemodialysis. Sodium repeat 135, potassium 3.3, BUN 18, creatinine 2.84, blood glucose elevated today in the 500s. Patient has not been getting levemir since admission as blood sugar was in the 20s at that time. Improved to 80s today with levemir. Continues on IV antibiotics, followed closely by infectious disease. Urine culture pending. 08/18/2021 Patient evaluated today resting in bed during hemodialysis. Patient continues with dry nonproductive cough states that her ribs are sore. Patient underwent hemodialysis today. Labs today show sodium 129, chloride 93. Creatinine 5.1. A1C 7.7, hgb 7.6. BP 129/76, Temp, heart rate 81, 100% 3L. States cough not improved with lozenges or tessalon. Added albuterol as well as she complains of mild shortness of breath as well. Blood sugar eleveted 500-600 last night, pt was started on insulin gtt and sugar dropped into the 20s. Today she is back in the 200-300s and we took her off the gtt and started her on low dose levemir. She plans to see endocrinology outpatient. 08/19/2021 Patient continues with persistant cough, non productive. Sore ribs due to coughing. Receiving sugar free lozenges, tessalon and albuterol for cough and breathing. Does complain of some shortness of breath today wearing nasal cannula. Refused incentive spirometry. 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 Blood cultures are negative so far, blood culture today repeated. ID is following closely and patient is on IV zosyn. Blood sugars are coming down slowly, although continues to have extreme lows and highs into the 400-500s. Currently today has been 132, 431, and 253. On levemir 10 units daily and sliding scale. Monitor closely for hypoglycemia. Procalcitonin level today 17.90, CRP 8.00 which both are trending down. Otherwise WBC 2.30, hemoglobin 7.1 s/p 1 unit of PRBCs. Sodium today 131, creatinine 4.5. 08/20/2021 Patient is seen and evaluated in follow-up this morning and continues with a cough and reports the shortness of breath. Patient also reports to not sleeping very well and feeling generalized fatigue. Blood sugars are uncontrolled and hyperglycemic although when attempting to place the patient on insulin drip patient drops significantly rather quickly and becomes severely hypoglycemic. Patient is maintained on IV Zosyn and vancomycin is being added infectious disea se following closely. Patient continues to have fevers and currently requiring 3 L of oxygen via nasal cannula. Blood pressure uncontrolled and will continue to monitor closely. Patient reports to some chest pain from the cough and continues to have pain on deep inspiration. Incentive spirometer at the bedside encourage the patient to continue using although patient is resistant per nursing staff. Continue with breathing inhalational treatments. 08/23/2021 Patient is seen in follow up this morning and continues on IV vanco with ID following. Nephrology following as well and patient is scheduled for hemodialysis today. Patient continues to have a cough that is causing pleuritic chest pains with coughing. Patient blood sugars also continue to fluctuate. Will consult dietitian to discuss further about diet. Patient denies worsening shortness of breath and continued on 3 L via NC as she states she is using for relief after coughing spells as she feels unable to catch her breath. Patient is afebrile. 08/24/2021 Patient is seen and evaluated today and receiving ultrafiltration today. Patient continues to have high blood pressure and have added hydralazine. Nephrology initiating oral hydralazine. Patient blood sugars continue to fluctuate and will continue sliding scale and 10 units of long acting. Patient will also have 2 units TID with meals. Encouraged oral intake. Patient reports to only carb counting at home and never has fluctuation in her blood sugars as she has here. Patient also continues on IV abx with ID following and hematology/oncology consulted for the anemia and work up in progress. 08/25/2021 She is seen and evaluated in follow-up this morning scheduled to receive hemodialysis as this is her normal scheduled Monday/Monday/Monday with multiple medical consultations following including infectious disease and nephrology. Patient will need to continue with Vanco during dialysis for the next two weeks. Patient continues to report chest pains with the cough and shortness of breath. Will order home 02 eval. Encouraged oral intake and increased activity as tolerated. Blood sugars continue to be uncontrolled and will continue current regimen and monitor closely. Discussed again with patient about compliance and importance of nutrition. Patient is afebrile. ID following 08/26/2021 Patient is seen this morning and continues on 2 L via NC and discussed with nursing staff about weaning FI02 as tolerated. Chest xray ordered. Patient being followed by ID and nephrology and plan is for hemodialysis tomorrow and will continue with vanco. Continue to monitor blood sugars closely and continue current regimen. Patient remains afebrile. REVIEW OF SYSTEMS: CONSTITUTIONAL: no malaise, reports fatigue. no Reports of fever/chills. HEENT: No recent visual problems or hearing problems. Reports sore throat. CARDIOVASCULAR: No orthopnea, PND, no palpitations, no syncope. PULMONARY: Reports shortness of breath with coughing spells, Reports persistent dry non productive cough. GASTROINTESTINAL: no Reports of loose stools, no nausea, no vomiting, no abdominal pain. Active Medications Acetaminophen (Acetaminophen Tab 325 Mg Tab) 650 mg PO Q6HR PRN PRN Reason: Mild Pain or Fever > 100.5 Last Admin: 08/20/21 19:37 Dose: 650 mg Documented by: Hydrocodone Bitart/Acetaminophen (Hydrocodone/Apap 5-325mg 1 Each Tab) 1 each PO Q6HR PRN PRN Reason: Pain Last Admin: 08/25/21 16:38 Dose: 1 each Documented by: Albuterol Sulfate (Albuterol Nebulized 2.5 Mg/3 Ml) 2.5 mg INHALATION RT-QID PRN PRN Reason: Shortness Of Breath Or Wheezing Last Admin: 08/19/21 20:55 Dose: 2.5 mg Documented by: Aspirin (Aspirin 81 Mg) 81 mg PO DAILY [facility] Last Admin: 08/26/21 07:33 Dose: 81 mg Documented by: Benzocaine/Menthol (Benzocaine/Menthol Lozeng 1 Each Lozenge) 1 each MUCOUS MEM Q4HR PRN PRN Reason: Cough Last Admin: 08/17/21 17:22 Dose: 1 each Documented by: Benzonatate (Benzonatate 100 Mg Cap) 100 mg PO TID PRN PRN Reason: Cough Last Admin: 08/23/21 11:00 Dose: 100 mg Documented by: Carvedilol (Carvedilol 12.5 Mg Tab) 25 mg PO BID-W/MEALS [facility] Last Admin: 08/26/21 07:33 Dose: 25 mg Documented by: Clonidine (Clonidine Hcl 0.1 Mg Tab) 0.3 mg PO TID [facility] Last Admin: 08/26/21 07:34 Dose: 0.3 mg Documented by: Darbepoetin Tate (Darbepoetin Tate 60 Mcg/0.3 Ml Syringe) 60 mcg SQ Q7D [facility] Last Admin: 08/26/21 11:52 Dose: 60 mcg Documented by: Diphenhydramine HCl (Diphenhydramine 25 Mg Cap) 25 mg PO TID PRN PRN Reason: Itching Last Admin: 08/25/21 16:38 Dose: 25 mg Documented by: Ergocalciferol (Ergocalciferol 1,250 Mcg (50,000 Iu) Capsule) 1,250 mcg PO Loo@0900 [facility] Last Admin: 08/22/21 07:36 Dose: 1,250 mcg Documented by: Escitalopram Oxalate (Escitalopram 20 Mg Tab) 20 mg PO DAILY [facility] Last Admin: 08/26/21 07:26 Dose: 20 mg Documented by: Heparin Sodium (Porcine) (Heparin Sodium,Porcine/Pf 5,000 Unit/0.5 Ml Syringe) 5,000 unit SQ Q12HR [facility] Last Admin: 08/26/21 10:19 Dose: Not Given Documented by: Hydralazine HCl (Hydralazine Hcl 20 Mg/Ml 1 Ml Vial) 10 mg IVP Q4HR PRN PRN Reason: Blood Pressure - High Last Admin: 08/26/21 00:53 Dose: 10 mg Documented by: Hydralazine HCl (Hydralazine Hcl 25 Mg Tab) 75 mg PO TID [facility] Last Admin: 08/26/21 07:26 Dose: 75 mg Documented by: Hydromorphone HCl (Hydromorphone 0.5 Mg/0.5 Ml Syringe) 0.5 mg IVP Q3HR PRN PRN Reason: Moderate Pain Last Admin: 08/26/21 12:55 Dose: 0.5 mg Documented by: Insulin Human Regular 100 unit (/ Sodium Chloride) 101 mls @ 0 mls/hr IV .Q0M [facility]; Protocol Insulin Aspart (Insulin Aspart (Novolog) 100 Unit/Ml Vial) 0 unit SQ ACHS [facility]; Protocol Last Admin: 08/26/21 11:51 Dose: 1 unit Documented by: Insulin Aspart (Insulin Aspart (Novolog) 100 Unit/Ml Vial) 2 unit SQ AC-TID [facility] Last Admin: 08/26/21 11:52 Dose: 2 unit Documented by: Insulin Detemir (Insulin Detemir (Levemir) 100 Unit/Ml Syr) 10 unit SQ DAILY@0700 [facility] Last Admin: 08/26/21 07:24 Dose: 10 unit Documented by: Isosorbide Mononitrate (Isosorbide Mononitrate Er 30 Mg Tab.Er.24h) 30 mg PO HS [facility] Last Admin: 08/25/21 20:06 Dose: 30 mg Documented by: Lisinopril (Lisinopril 10 Mg Tab) 10 mg PO DAILY [facility] Last Admin: 08/26/21 07:26 Dose: 10 mg Documented by: Lorazepam (Lorazepam 2 Mg/Ml Inj) 0.5 mg IV Q6HR PRN PRN Reason: Anxiety Melatonin (Melatonin 5 Mg Tablet) 5 - 10 mg PO HS PRN PRN Reason: Insomnia Last Admin: 08/25/21 22:16 Dose: 10 mg Documented by: Metoclopramide HCl (Metoclopramide 5 Mg/Ml 2 Ml Vial) 5 mg IVP BID PRN PRN Reason: Nausea And Vomiting Last Admin: 08/15/21 18:59 Dose: 5 mg Documented by: Miscellaneous Information ([facility] 1 each MISCELLANE DIRECTED PRN; Protocol PRN Reason: Per Protocol Naloxone HCl (Naloxone 0.4 Mg/Ml 1 Ml Vial) 0.2 mg IV Q2M PRN PRN Reason: Opioid Reversal Pantoprazole Sodium (Pantoprazole 40 Mg Tablet) 40 mg PO BID [facility] Last Admin: 08/26/21 07:26 Dose: 40 mg Documented by: Ropinirole HCl (Ropinirole Hcl 0.25 Mg Tab) 0.5 mg PO HS [facility] Last Admin: 08/25/21 20:06 Dose: 0.5 mg Documented by: Sevelamer Carbonate (Sevelamer 800 Mg Tab) 800 mg PO TID-W/MEALS [facility] Last Admin: 08/26/21 11:51 Dose: 800 mg Documented by: PHYSICAL EXAMINATION: GENERAL: The patient is alert and oriented x3, ill appearing, fatigued. Well developed, well nourished. HEENT: Pupils are round and equally reacting to light. EOMI. No scleral icterus. No conjunctival pallor. Normocephalic, atraumatic. No pharyngeal erythema. No thyromegaly. CARDIOVASCULAR: S1 and S2 muffled PULMONARY: Chest is diminished bilaterally with some scattered rhonchi noted ABDOMEN: Soft, nontender, nondistended, normoactive bowel sounds. No palpable organomegaly. dry cough on exam MUSCULOSKELETAL: No joint swelling or deformity. EXTREMITIES: No cyanosis, clubbing, or pedal edema. NEUROLOGICAL: Gross neurological examination did not reveal any focal deficits. SKIN: No rashes. Assessment: -Sepsis: Secondary to bilateral interstitial multifocal pneumonia, possibly gram negative -End-stage renal disease, hemodialysis dependent monday -Hyponatremia secondary to chronic kidney disease, improving -Anemia, chronic -Type 1 diabetes mellitus, uncontrolled with hyperglycemia as well as hypoglycemia, brittle -Pleuritic chest pain and a parapneumonic effusion -Hypertension secondary to renal disease -Depression -DVT prophylaxis: subcutaneous heparin -GI prophylaxis -Full Code Plan: Recommend to continue with breathing inhalational treatments and strongly encourage incentive spirometer at least 10 times every hour while awake. Per nursing staff, patient is refusing IS use due to having chest pains with extensive cough. Encouraged increased activity as tolerated. Wean FI02 as tolerated. Assess vitals on room air. Chest xray shows some improvement in aeration. Patient was maintained on IV vancomycin with infectious disease following closely. Patient will continue with vanco during dialysis for 14 days outpatient Patient is to continue on dialysis Monday/Monday/Monday with nephrology following closely and will receive dialysis tomorrow hematology following for anemia work-up in progress. Patient will follow up outpatient as well Continue to encourage increased activity as tolerated, encourage oral intake Recommend close monitoring of blood sugars and before meals and at bedtime Accu- Cheks along with as needed as patient is a brittle diabetic and blood sugars have been fluctuating. Will continue current medication regimen and monitor closely. Given multiple complex medical issues, prognosis is guarded. Possible discharge in 24-48 hours. The impression and plan of care has been dictated as a scribe by Cindi Saha, Nurse Practitioner as directed. Dr. Jean MD I have performed a history and physical examination and medical decision making of this patient, discussed the same with the dictator, documented as a scribe. Based on total visit time, I have performed more than 50% of this visit. Objective - Vital Signs Vital signs: Vital Signs Temp 98.3 F 08/26/21 08:00 Pulse 86 08/26/21 08:00 Resp 18 08/26/21 08:00 BP 172/82 08/26/21 08:00 Pulse Ox 99 08/26/21 09:11 Intake & Output 08/25/21 08/26/21 08/26/21 18:59 06:59 18:59 Output Total 3000 Balance -3000 Output: Hemodialysis 3000 Other: Voiding Method Toilet Toilet Diaper Diaper Diaper Incontinent Incontinent Incontinent # Voids 2 2 - Labs CBC & Chem 7: 08/26/21 04:34 08/26/21 04:34 Labs: Abnormal Lab Results - Last 24 Hours (Table) 08/24/21 08/25/21 08/25/21 Range/Units 06:56 10:36 15:25 WBC 3.15 L (4.50-10.00) X 10*3/uL RBC 2.72 L (4.10-5.20) X 10*6/uL Hgb 7.8 L (12.0-15.0) g/dL Hct 23.7 L (37.2-46.3) % Immature Gran # 0.05 H (0.00-0.04) X 10*3/uL Lymphocytes # 0.49 L (0.90-5.00) X 10*3/uL Retic Count 2.01 H (0.10-1.80) % Sodium (137-145) mmol/L BUN (7-17) mg/dL Creatinine (0.52-1.04) mg/dL Glucose (74-99) mg/dL POC Glucose (mg/dL) 436 H (75-99) mg/dL ALT (4-34) U/L Alkaline Phosphatase (38-126) U/L Total Protein (6.3-8.2) g/dL Albumin (3.5-5.0) g/dL Methylmalonic Acid 1.14 H (<0.40) umol/L RBC Folate 955 H (280 - 791) ng/mL 08/25/21 08/25/21 08/25/21 Range/Units 16:15 16:30 16:46 WBC (4.50-10.00) X 10*3/uL RBC (4.10-5.20) X 10*6/uL Hgb (12.0-15.0) g/dL Hct (37.2-46.3) % Immature Gran # (0.00-0.04) X 10*3/uL Lymphocytes # (0.90-5.00) X 10*3/uL Retic Count (0.10-1.80) % Sodium (137-145) mmol/L BUN (7-17) mg/dL Creatinine (0.52-1.04) mg/dL Glucose (74-99) mg/dL POC Glucose (mg/dL) 30 L 28 L 52 L (75-99) mg/dL ALT (4-34) U/L Alkaline Phosphatase (38-126) U/L Total Protein (6.3-8.2) g/dL Albumin (3.5-5.0) g/dL Methylmalonic Acid (<0.40) umol/L RBC Folate (280 - 791) ng/mL 08/25/21 08/25/21 08/26/21 Range/Units 17:01 20:07 02:52 WBC (4.50-10.00) X 10*3/uL RBC (4.10-5.20) X 10*6/uL Hgb (12.0-15.0) g/dL Hct (37.2-46.3) % Immature Gran # (0.00-0.04) X 10*3/uL Lymphocytes # (0.90-5.00) X 10*3/uL Retic Count (0.10-1.80) % Sodium (137-145) mmol/L BUN (7-17) mg/dL Creatinine (0.52-1.04) mg/dL Glucose (74-99) mg/dL POC Glucose (mg/dL) 128 H 323 H 155 H (75-99) mg/dL ALT (4-34) U/L Alkaline Phosphatase (38-126) U/L Total Protein (6.3-8.2) g/dL Albumin (3.5-5.0) g/dL Methylmalonic Acid (<0.40) umol/L RBC Folate (280 - 791) ng/mL 08/26/21 08/26/21 08/26/21 Range/Units 04:34 04:34 07:10 WBC (4.50-10.00) X 10*3/uL RBC 2.50 L (4.10-5.20) X 10*6/uL Hgb 7.3 L (12.0-15.0) g/dL Hct 22.7 L (37.2-46.3) % Immature Gran # 0.05 H (0.00-0.04) X 10*3/uL Lymphocytes # 0.85 L (0.90-5.00) X 10*3/uL Retic Count (0.10-1.80) % Sodium 136 L (137-145) mmol/L BUN 31 H (7-17) mg/dL Creatinine 4.52 H (0.52-1.04) mg/dL Glucose 253 H (74-99) mg/dL POC Glucose (mg/dL) 422 H (75-99) mg/dL ALT 40 H (4-34) U/L Alkaline Phosphatase 165 H (38-126) U/L Total Protein 6.2 L (6.3-8.2) g/dL Albumin 3.4 L (3.5-5.0) g/dL Methylmalonic Acid (<0.40) umol/L RBC Folate (280 - 791) ng/mL Microbiology - Last 24 Hours (Table) 08/19/21 05:54 Blood Culture - Final Blood No Growth after 144 hours
[2021-08-26 14:21] LABS: Free Lambda Lt Chain Qnt, Seru 28.87 mg/dL (0.57-2.63)
--- NOTE | 2021-08-26 14:56 | P.PN ---
Subjective Progress Note Date: 08/26/21 Uncomfortble, pain this morning during evaluation. Hemoglobin stable, no transfusion needed today Objective - Vital Signs Vital signs: Vital Signs Temp 98.4 F 08/26/21 14:38 Pulse 75 08/26/21 14:38 Resp 16 08/26/21 14:38 BP 146/74 08/26/21 14:38 Pulse Ox 95 08/26/21 14:38 Intake & Output 08/25/21 08/26/21 08/26/21 18:59 06:59 18:59 Output Total 3000 Balance -3000 Output: Hemodialysis 3000 Other: Voiding Method Toilet Toilet Diaper Diaper Diaper Incontinent Incontinent Incontinent # Voids 2 2 - Exam - Constitutional General appearance: cooperative, no acute distress, thin - EENT Eyes: anicteric sclerae, EOMI ENT: hearing grossly normal, normal oropharynx - Neck Neck: no lymphadenopathy - Respiratory Respiratory: bilateral: diminished - Cardiovascular Rhythm: regular Heart sounds: normal: S1, S2 Abnormal Heart Sounds: no systolic murmur, no diastolic murmur, no rub, no S3 Gallop, no S4 Gallop, no click, no other leg Peripheral Edema: bilateral: None - Gastrointestinal General gastrointestinal: no absent bowel sounds, no decreased bowel sounds, no distended, no hepatomegaly, no hyperactive bowel sounds, normal bowel sounds, no organomegaly, no rigid, no scaphoid, soft, no splenomegaly, no tenderness, no umbilical hernia, no ventral hernia - Integumentary Integumentary: normal, pale - Neurologic patient reports vision impairment, did not perform vision acuity exam Neurologic: CNII-XII intact - Musculoskeletal Musculoskeletal: strength equal bilaterally - Psychiatric Psychiatric: A&O x's 3, appropriate affect, intact judgment & insight - Labs CBC & Chem 7: 08/26/21 04:34 08/26/21 04:34 Labs: Abnormal Lab Results - Last 24 Hours (Table) 08/24/21 08/24/21 08/25/21 Range/Units 06:56 06:56 15:25 WBC 3.15 L (4.50-10.00) X 10*3/uL RBC 2.72 L (4.10-5.20) X 10*6/uL Hgb 7.8 L (12.0-15.0) g/dL Hct 23.7 L (37.2-46.3) % Immature Gran # 0.05 H (0.00-0.04) X 10*3/uL Lymphocytes # 0.49 L (0.90-5.00) X 10*3/uL Retic Count 2.01 H (0.10-1.80) % Sodium (137-145) mmol/L BUN (7-17) mg/dL Creatinine (0.52-1.04) mg/dL Glucose (74-99) mg/dL POC Glucose (mg/dL) (75-99) mg/dL ALT (4-34) U/L Alkaline Phosphatase (38-126) U/L Total Protein (6.3-8.2) g/dL Total Protein (PEP) 6.1 L (6.2-8.2) g/dL Albumin (3.5-5.0) g/dL Albumin (PEP) 3.47 L (3.80-4.90) g/dL Wqprn-4-Usczmlttl 0.41 H (0.10-0.40) g/dL Methylmalonic Acid 1.14 H (<0.40) umol/L Free Lambda LC, Quant 28.87 H (0.57-2.63) mg/dL 08/25/21 08/25/21 08/25/21 Range/Units 16:15 16:30 16:46 WBC (4.50-10.00) X 10*3/uL RBC (4.10-5.20) X 10*6/uL Hgb (12.0-15.0) g/dL Hct (37.2-46.3) % Immature Gran # (0.00-0.04) X 10*3/uL Lymphocytes # (0.90-5.00) X 10*3/uL Retic Count (0.10-1.80) % Sodium (137-145) mmol/L BUN (7-17) mg/dL Creatinine (0.52-1.04) mg/dL Glucose (74-99) mg/dL POC Glucose (mg/dL) 30 L 28 L 52 L (75-99) mg/dL ALT (4-34) U/L Alkaline Phosphatase (38-126) U/L Total Protein (6.3-8.2) g/dL Total Protein (PEP) (6.2-8.2) g/dL Albumin (3.5-5.0) g/dL Albumin (PEP) (3.80-4.90) g/dL Ohbda-5-Ikppnljam (0.10-0.40) g/dL Methylmalonic Acid (<0.40) umol/L Free Lambda LC, Quant (0.57-2.63) mg/dL 08/25/21 08/25/21 08/26/21 Range/Units 17:01 20:07 02:52 WBC (4.50-10.00) X 10*3/uL RBC (4.10-5.20) X 10*6/uL Hgb (12.0-15.0) g/dL Hct (37.2-46.3) % Immature Gran # (0.00-0.04) X 10*3/uL Lymphocytes # (0.90-5.00) X 10*3/uL Retic Count (0.10-1.80) % Sodium (137-145) mmol/L BUN (7-17) mg/dL Creatinine (0.52-1.04) mg/dL Glucose (74-99) mg/dL POC Glucose (mg/dL) 128 H 323 H 155 H (75-99) mg/dL ALT (4-34) U/L Alkaline Phosphatase (38-126) U/L Total Protein (6.3-8.2) g/dL Total Protein (PEP) (6.2-8.2) g/dL Albumin (3.5-5.0) g/dL Albumin (PEP) (3.80-4.90) g/dL Hfnep-4-Iajukdgxc (0.10-0.40) g/dL Methylmalonic Acid (<0.40) umol/L Free Lambda LC, Quant (0.57-2.63) mg/dL 08/26/21 08/26/21 08/26/21 Range/Units 04:34 04:34 07:10 WBC (4.50-10.00) X 10*3/uL RBC 2.50 L (4.10-5.20) X 10*6/uL Hgb 7.3 L (12.0-15.0) g/dL Hct 22.7 L (37.2-46.3) % Immature Gran # 0.05 H (0.00-0.04) X 10*3/uL Lymphocytes # 0.85 L (0.90-5.00) X 10*3/uL Retic Count (0.10-1.80) % Sodium 136 L (137-145) mmol/L BUN 31 H (7-17) mg/dL Creatinine 4.52 H (0.52-1.04) mg/dL Glucose 253 H (74-99) mg/dL POC Glucose (mg/dL) 422 H (75-99) mg/dL ALT 40 H (4-34) U/L Alkaline Phosphatase 165 H (38-126) U/L Total Protein 6.2 L (6.3-8.2) g/dL Total Protein (PEP) (6.2-8.2) g/dL Albumin 3.4 L (3.5-5.0) g/dL Albumin (PEP) (3.80-4.90) g/dL Eccmc-2-Lkhgkliaj (0.10-0.40) g/dL Methylmalonic Acid (<0.40) umol/L Free Lambda LC, Quant (0.57-2.63) mg/dL 08/26/21 Range/Units 11:21 WBC (4.50-10.00) X 10*3/uL RBC (4.10-5.20) X 10*6/uL Hgb (12.0-15.0) g/dL Hct (37.2-46.3) % Immature Gran # (0.00-0.04) X 10*3/uL Lymphocytes # (0.90-5.00) X 10*3/uL Retic Count (0.10-1.80) % Sodium (137-145) mmol/L BUN (7-17) mg/dL Creatinine (0.52-1.04) mg/dL Glucose (74-99) mg/dL POC Glucose (mg/dL) 153 H (75-99) mg/dL ALT (4-34) U/L Alkaline Phosphatase (38-126) U/L Total Protein (6.3-8.2) g/dL Total Protein (PEP) (6.2-8.2) g/dL Albumin (3.5-5.0) g/dL Albumin (PEP) (3.80-4.90) g/dL Wecqr-1-Afkxfuhqq (0.10-0.40) g/dL Methylmalonic Acid (<0.40) umol/L Free Lambda LC, Quant (0.57-2.63) mg/dL Assessment and Plan (1) Normocytic anemia Current Visit: Yes Status: Acute Code(s): D64.9 - ANEMIA, UNSPECIFIED SNOMED Code(s): 506571178 (2) Leukopenia Current Visit: Yes Status: Acute Code(s): D72.819 - DECREASED WHITE BLOOD CELL COUNT, UNSPECIFIED SNOMED Code(s): 80849790 (3) CKD (chronic kidney disease) Current Visit: No Status: Acute Code(s): N18.9 - CHRONIC KIDNEY DISEASE, UNSPECIFIED SNOMED Code(s): 053525637 (4) ESRD (end stage renal disease) on dialysis Current Visit: No Status: Acute Code(s): N18.6 - END STAGE RENAL DISEASE; Z99.2 - DEPENDENCE ON RENAL DIALYSIS SNOMED Code(s): 826123570 (5) Transaminitis Current Visit: No Status: Acute Code(s): R74.01 - ELEVATION OF LEVELS OF LIVER TRANSAMINASE LEVELS SNOMED Code(s): 969517493 Plan: Chest x-ray: report reviewed CT scan - abdomen: report reviewed CT scan - chest: report reviewed CT scan - pelvis: report reviewed Assessment and Plan (1) Bicytopenia Narrative/Plan: Patient's hemoglobin was noted to be low back in late 2020, likely during an episode of acute illness, then normal in May 2021. Now low again, she did require 1 unit PRBCs 7 days ago. Anemia workup reviewed, no Iron supplementation at this time.. Paraproteinemia pending No transfusions are needed at this time. Defer epogen to Nephrology Daily CBC Current Visit: Yes Status: Acute Priority: High Code(s): D75.89 - OTHER SPECIFIED DISEASES OF BLOOD AND BLOOD-FORMING ORGANS SNOMED Code(s): 61797812
[2021-08-26 15:31] LABS: Glucose,Whole Blood 38 mg/dL (75-99)
[2021-08-26 15:55] LABS: Glucose,Whole Blood 87 mg/dL (75-99)
[2021-08-26 19:58] LABS: Glucose,Whole Blood 239 mg/dL (75-99)
[2021-08-26] MEDS: ISOSORBIDE MONONITRATE ER 30 MG TAB.ER.24H PO SCH (20:45)
--- NOTE | 2021-08-26 22:22 | P.PN ---
Subjective Progress Note Date: 08/26/21 Principal diagnosis: Pneumonia Patient is a 30-year-old female with a past medical history significant for end-stage renal disease on dialysis presented to the hospital w ith a fever of left lower chest pain concerning for pneumonia. On today's evaluation that is 08/26/2021, The patient remains to be afebrile the patient is breathing comfortably on nasal cannula oxygen, the patient denies having any chest pain and a cough is decreased intensity mostly dry in nature no abdominal pain no diarrhea overall feeling better Objective - Vital Signs Vital signs: Vital Signs Temp 98.3 F 08/26/21 08:00 Pulse 86 08/26/21 08:00 Resp 18 08/26/21 08:00 BP 172/82 08/26/21 08:00 Pulse Ox 99 08/26/21 09:11 Intake & Output 08/25/21 08/26/21 08/26/21 18:59 06:59 18:59 Output Total 3000 Balance -3000 Output: Hemodialysis 3000 Other: Voiding Method Toilet Toilet Diaper Diaper Diaper Incontinent Incontinent Incontinent # Voids 2 2 - Exam GENERAL DESCRIPTION: Middle-age female lying in bed in no distress RESPIRATORY SYSTEM: Unlabored breathing , decreased breath sounds at bases HEART: S1 S2 regular rate and rhythm , ABDOMEN: Soft , no tenderness EXTREMITIES: No edema feet - Labs CBC & Chem 7: 08/26/21 04:34 08/26/21 04:34 Labs: Abnormal Lab Results - Last 24 Hours (Table) 08/24/21 08/24/21 08/25/21 Range/Units 06:56 06:56 15:25 WBC 3.15 L (4.50-10.00) X 10*3/uL RBC 2.72 L (4.10-5.20) X 10*6/uL Hgb 7.8 L (12.0-15.0) g/dL Hct 23.7 L (37.2-46.3) % Immature Gran # 0.05 H (0.00-0.04) X 10*3/uL Lymphocytes # 0.49 L (0.90-5.00) X 10*3/uL Retic Count 2.01 H (0.10-1.80) % Sodium (137-145) mmol/L BUN (7-17) mg/dL Creatinine (0.52-1.04) mg/dL Glucose (74-99) mg/dL POC Glucose (mg/dL) (75-99) mg/dL ALT (4-34) U/L Alkaline Phosphatase (38-126) U/L Total Protein (6.3-8.2) g/dL Total Protein (PEP) 6.1 L (6.2-8.2) g/dL Albumin (3.5-5.0) g/dL Methylmalonic Acid 1.14 H (<0.40) umol/L 08/25/21 08/25/21 08/25/21 Range/Units 16:15 16:30 16:46 WBC (4.50-10.00) X 10*3/uL RBC (4.10-5.20) X 10*6/uL Hgb (12.0-15.0) g/dL Hct (37.2-46.3) % Immature Gran # (0.00-0.04) X 10*3/uL Lymphocytes # (0.90-5.00) X 10*3/uL Retic Count (0.10-1.80) % Sodium (137-145) mmol/L BUN (7-17) mg/dL Creatinine (0.52-1.04) mg/dL Glucose (74-99) mg/dL POC Glucose (mg/dL) 30 L 28 L 52 L (75-99) mg/dL ALT (4-34) U/L Alkaline Phosphatase (38-126) U/L Total Protein (6.3-8.2) g/dL Total Protein (PEP) (6.2-8.2) g/dL Albumin (3.5-5.0) g/dL Methylmalonic Acid (<0.40) umol/L 08/25/21 08/25/21 08/26/21 Range/Units 17:01 20:07 02:52 WBC (4.50-10.00) X 10*3/uL RBC (4.10-5.20) X 10*6/uL Hgb (12.0-15.0) g/dL Hct (37.2-46.3) % Immature Gran # (0.00-0.04) X 10*3/uL Lymphocytes # (0.90-5.00) X 10*3/uL Retic Count (0.10-1.80) % Sodium (137-145) mmol/L BUN (7-17) mg/dL Creatinine (0.52-1.04) mg/dL Glucose (74-99) mg/dL POC Glucose (mg/dL) 128 H 323 H 155 H (75-99) mg/dL ALT (4-34) U/L Alkaline Phosphatase (38-126) U/L Total Protein (6.3-8.2) g/dL Total Protein (PEP) (6.2-8.2) g/dL Albumin (3.5-5.0) g/dL Methylmalonic Acid (<0.40) umol/L 08/26/21 08/26/21 08/26/21 Range/Units 04:34 04:34 07:10 WBC (4.50-10.00) X 10*3/uL RBC 2.50 L (4.10-5.20) X 10*6/uL Hgb 7.3 L (12.0-15.0) g/dL Hct 22.7 L (37.2-46.3) % Immature Gran # 0.05 H (0.00-0.04) X 10*3/uL Lymphocytes # 0.85 L (0.90-5.00) X 10*3/uL Retic Count (0.10-1.80) % Sodium 136 L (137-145) mmol/L BUN 31 H (7-17) mg/dL Creatinine 4.52 H (0.52-1.04) mg/dL Glucose 253 H (74-99) mg/dL POC Glucose (mg/dL) 422 H (75-99) mg/dL ALT 40 H (4-34) U/L Alkaline Phosphatase 165 H (38-126) U/L Total Protein 6.2 L (6.3-8.2) g/dL Total Protein (PEP) (6.2-8.2) g/dL Albumin 3.4 L (3.5-5.0) g/dL Methylmalonic Acid (<0.40) umol/L 08/26/21 Range/Units 11:21 WBC (4.50-10.00) X 10*3/uL RBC (4.10-5.20) X 10*6/uL Hgb (12.0-15.0) g/dL Hct (37.2-46.3) % Immature Gran # (0.00-0.04) X 10*3/uL Lymphocytes # (0.90-5.00) X 10*3/uL Retic Count (0.10-1.80) % Sodium (137-145) mmol/L BUN (7-17) mg/dL Creatinine (0.52-1.04) mg/dL Glucose (74-99) mg/dL POC Glucose (mg/dL) 153 H (75-99) mg/dL ALT (4-34) U/L Alkaline Phosphatase (38-126) U/L Total Protein (6.3-8.2) g/dL Total Protein (PEP) (6.2-8.2) g/dL Albumin (3.5-5.0) g/dL Methylmalonic Acid (<0.40) umol/L Assessment and Plan (1) Sepsis due to pneumonia Current Visit: Yes Status: Acute Code(s): J18.9 - PNEUMONIA, UNSPECIFIED ORGANISM; A41.9 - SEPSIS, UNSPECIFIED ORGANISM SNOMED Code(s): 91024333 Plan: 1patient presented to hospital with fever in this patient also have a left lower rib cage pain which is pleuritic concerning for possible pneumonia and question of possible aspiration etiology recently completed course of oral Augmentin. 2 sputum for Gram stain and culture requested but not collected, Blood culture has been negative 3 Patient seems to have clinically improved and will continue with the vancomycin pharmacy to dose through dialysis to finish a 2-week course of therapy
[2021-08-26] MEDS: HYDROcodone/APAP 5-325MG 1 EACH TAB PO PRN (22:24)
[2021-08-26] MEDS: MELATONIN 5 MG TABLET PO PRN (22:24)
[2021-08-27] MEDS: HYDROmorphone 0.5 MG/0.5 ML SYRINGE IVP PRN ×6 (00:40→20:53)
[2021-08-27] MEDS: hydrALAZINE HCL 20 MG/ML 1 ML VIAL IVP PRN (01:52)
[2021-08-27 02:15] LABS: Glucose,Whole Blood 270 mg/dL (75-99)
[2021-08-27 06:21] LABS: Glucose,Whole Blood 579 mg/dL (75-99)
[2021-08-27] MEDS: METOCLOPRAMIDE 5 MG/ML 2 ML VIAL IVP PRN (07:27)
[2021-08-27 07:30] LABS: Glucose,Whole Blood >600 mg/dL (75-99)
[2021-08-27] MEDS: INSULIN REGULAR 100 UNIT in SODIUM CHLORIDE 0.9% 100 ML IV SCH ×2 (07:31→14:03)
--- NOTE | 2021-08-27 07:41 | ECHOF ---
Referral Reason:pericardial effusion MEASUREMENTS -------- HEIGHT: 162.6 cm WEIGHT: 47.6 kg BP: RVIDd: 2.9 cm (< 3.3) IVSd: 1.8 cm (0.6 - 1.1) LVIDd: 3.8 cm (3.9 - 5.3) LVPWd: 1.6 cm (0.6 - 1.1) IVSs: 1.8 cm LVIDs: 2.8 cm LVPWs: 1.8 cm IVSd: 1.7 cm (0.6 - 1.1) LVIDd: 4.3 cm (3.9 - 5.3) LVPWd: 1.7 cm (0.6 - 1.1) IVSs: 1.9 cm LVIDs: 2.5 cm LVPWs: 2.4 cm EDV(Teich): 83 ml ESV(Teich): 23 ml EF(Teich): 72 % %FS: 41 % SV(Teich): 60 ml Ao Diam: 2.5 cm (2.0 - 3.7) AV Cusp: 1.5 cm (1.5 - 2.6) LA Diam: 3.1 cm (2.7 - 3.8) MV EXCURSION: 10.065 mm (> 18.000) MV EF SLOPE: 57 mm/s (70 - 150) EPSS: 0.6 cm MV E Km: 1.20 m/s MV DecT: 181 ms MV A Km: 1.17 m/s MV E/A Ratio: 1.02 RAP: 5.00 mmHg RVSP: 71.27 mmHg TAPSE: 2.15 cm FINDINGS -------- This was a technically good study. The left ventricular size is normal. There is severe concentric left ventricular hypertrophy. Ove rall left ventricular systolic function is normal with, an EF between 55 - 60 %. The right ventricle is normal in size. The left atrial size is normal. The right atrial size is normal. The aortic valve is trileaflet and appears structurally normal. The mitral valve is normal. There is trace mitral regurgitation. The tricuspid valve appears structurally normal. Moderate to severe tricuspid regurgitation present . There is severe pulmonary hypertension. The right ventricular systolic pressure, as measured by Doppler, is 71.27mmHg. There is no pulmonic regurgitation present. The aortic root size is normal. Normal inferior vena cava with normal inspiratory collapse consistent with estimated right atrial pre ssure of 5 mmHg. There is a moderate, generalized pericardial effusion present. CONCLUSIONS -------- 1. The left ventricular size is normal. 2. There is severe concentric left ventricular hypertrophy. 3. Overall left ventricular systolic function is normal with, an EF between 55 - 60 %. 4. There is trace mitral regurgitation. 5. Moderate to severe tricuspid regurgitation present. 6. There is severe pulmonary hypertension. 7. The right ventricular systolic pressure, as measured by Doppler, is 71.27mmHg. 8. There is a moderate, generalized pericardial effusion present. POCKET AND PULLEY MACHINE OPERATOR: Chayo Barney RDCS
[2021-08-27 07:47] LABS: Basophils % (A) 0 %; Eosinophils # (A) 0.3 k/uL (0-0.7); Eosinophils % (A) 5 %; HCT 24.9 % (34.0-46.0); HGB 7.8 gm/dL (11.4-16.0); Hypochromasia Marked; Lymphocytes # (A) 0.4 k/uL (1.0-4.8); Lymphocytes % (A) 9 %; MCH 30.6 pg (25.0-35.0); MCHC 31.5 g/dL (31.0-37.0); Mean Platelet Volume 9.2; Monocytes # (A) 0.2 k/uL (0-1.0); Monocytes % (A) 4 %; Neutrophils # (A) 3.7 k/uL (1.3-7.7); Neutrophils % (A) 79 %; Platelet Count 269 k/uL (150-450); RBC 2.56 m/uL (3.80-5.40); RDW 15.4 % (11.5-15.5); WBC 4.7 k/uL (3.8-10.6)
[2021-08-27 07:50] LABS: MCV 97.4 fL (80.0-100.0)
[2021-08-27 07:52] LABS: African American GFR (CKD) 6 (>60 ml/min/1.73 sqM); Anion Gap 14 mmol/L; Blood Urea Nitrogen 52 mg/dL (7-17); Calcium 8.8 mg/dL (8.4-10.2); Carbon Dioxide 14 mmol/L (22-30); Chloride 100 mmol/L (98-107); Non-African American GFR(CKD) 5 (>60 ml/min/1.73 sqM); Potassium 5.7 mmol/L (3.5-5.1); Sodium 128 mmol/L (137-145)
[2021-08-27 08:10] LABS: Free Kappa Lt Chain Qnt, Serum 27.35 mg/dL (0.33-1.94)
[2021-08-27 08:12] LABS: Glucose 654 mg/dL (74-99)
[2021-08-27 08:17] LABS: Glucose,Whole Blood 592 mg/dL (75-99)
[2021-08-27] MEDS: SEVELAMER 800 MG TAB PO SCH ×3 (08:21→16:26)
[2021-08-27] MEDS: INSULIN ASPART (NovoLOG) 100 UNIT/ML VIAL SQ SCH ×3 (08:27→17:13)
[2021-08-27] MEDS: ASPIRIN 81 MG PO SCH (08:36)
[2021-08-27] MEDS: cloNIDine HCL 0.1 MG TAB PO SCH ×3 (08:36→20:56)
[2021-08-27] MEDS: PANTOPRAZOLE 40 MG TABLET PO SCH ×2 (08:36→20:56)
[2021-08-27] MEDS: ESCITALOPRAM 20 MG TAB PO SCH (08:36)
[2021-08-27] MEDS: HEPARIN SODIUM,PORCINE/PF 5,000 UNIT/0.5 ML SYRINGE SQ SCH ×2 (08:37→20:56)
[2021-08-27 08:52] LABS: Glucose,Whole Blood 538 mg/dL (75-99)
[2021-08-27] MEDS ORDERED: diphenhydrAMINE 50 MG/ML 1 ML VIAL IVP STA (09:15)
[2021-08-27 09:34] LABS: Glucose,Whole Blood 329 mg/dL (75-99)
[2021-08-27 10:08] LABS: Glucose,Whole Blood 211 mg/dL (75-99)
[2021-08-27 11:13] LABS: Glucose,Whole Blood 79 mg/dL (75-99)
[2021-08-27] MEDS: hydrALAZINE HCL 25 MG TAB PO SCH ×2 (12:00→15:23)
[2021-08-27] MEDS: lisinopriL 10 MG TAB PO SCH (12:01)
[2021-08-27] MEDS: carvediloL 12.5 MG TAB PO SCH ×2 (12:01→16:26)
[2021-08-27 12:11] LABS: Glucose,Whole Blood 90 mg/dL (75-99)
[2021-08-27 13:22] LABS: Glucose,Whole Blood 273 mg/dL (75-99)
[2021-08-27 14:13] LABS: Glucose,Whole Blood 275 mg/dL (75-99)
--- NOTE | 2021-08-27 14:43 | P.PN ---
Subjective Progress Note Date: 08/27/21 08/27/2021 Patient evaluated today during hemodialysis. Continues with persistent cough, which has been nonproductive. Continues on 2 L nasal cannula can wean as tolerated. Patient is afebrile, no acute events overnight. Blood sugars continued extreme highs and lows, patient was started back on insulin drip, was acetone positive, blood sugar in the 600s, currently anion gap 14. We will repeat labs if gap has closed we will transition patient to subcutaneous insulin. Echocardiogram was done yesterday which shows EF 55-60% with moderate to severe tricuspid regurg, trace mitral regurg, severe pulmonary hypertension and a moderate generalized pericardial effusion. Once medically stable at [facility] patient will continue with vancomycin for 2 weeks during dialysis recommended by ID. Review of Systems Constitutional: Denied any fatigue denied any fever. Cardio vascular: denied any chest pain, palpitations Gastrointestinal: denied any nausea, vomiting, diarrhea Pulmonary: Denies shortness of breath, reports dry persistant cough Neurologic denied any new focal deficits All inpatient medications were reviewed and appropriate changes in these medications as dictated in the interval history and assessment and plan. PHYSICAL EXAMINATION: GENERAL: The patient is alert and oriented x3, ill appearing, fatigued. Well developed, well nourished. HEENT: Pupils are round and equally reacting to light. EOMI. No scleral icterus. No conjunctival pallor. Normocephalic, atraumatic. No pharyngeal erythema. No thyromegaly. CARDIOVASCULAR: S1 and S2 muffled PULMONARY: Chest is diminished bilaterally with some scattered rhonchi noted ABDOMEN: Soft, nontender, nondistended, normoactive bowel sounds. No palpable organomegaly. dry cough on exam MUSCULOSKELETAL: No joint swelling or deformity. EXTREMITIES: No cyanosis, clubbing, or pedal edema. NEUROLOGICAL: Gross neurological examination did not reveal any focal deficits. SKIN: No rashes. 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 Dr. Sudeep MD I have performed a history and physical examination and medical decision making of this patient, discussed the same with the dictator, and agree with the dictators assessment and plan as written, documented as a scribe. Based on total visit time, I have performed more than 50% of this visit. Objective - Vital Signs Vital signs: Vital Signs Temp 98.0 F 08/27/21 12:37 Pulse 78 08/27/21 12:37 Resp 17 08/27/21 12:37 BP 145/73 08/27/21 13:26 Pulse Ox 94 L 08/27/21 12:37 Intake & Output 08/26/21 08/27/21 08/27/21 18:59 06:59 18:59 Intake Total 76.417 Output Total 4000 Balance -3923.583 Intake: Intake, IV Titration 76.417 Amount Insulin Regular 100 unit 76.417 In Sodium Chloride 0.9% 100 ml @ Titrate IV .Q0M [facility] Rx#:[id number] Output: Hemodialysis 4000 Other: Voiding Method Diaper Toilet Toilet Incontinent Diaper Incontinent # Voids 2 - Labs CBC & Chem 7: 08/27/21 07:20 08/27/21 07:20 Labs: Abnormal Lab Results - Last 24 Hours (Table) 08/24/21 08/26/21 08/26/21 Range/Units 06:56 15:29 19:56 RBC (3.80-5.40) m/uL Hgb (11.4-16.0) gm/dL Hct (34.0-46.0) % Lymphocytes # (1.0-4.8) k/uL Sodium (137-145) mmol/L Potassium (3.5-5.1) mmol/L Carbon Dioxide (22-30) mmol/L BUN (7-17) mg/dL Creatinine (0.52-1.04) mg/dL Glucose (74-99) mg/dL POC Glucose (mg/dL) 38 L 239 H (75-99) mg/dL Free [place] LC, Quant 27.35 H (0.33-1.94) mg/dL Free [place] LC, Quant 28.87 H (0.57-2.63) mg/dL 08/27/21 08/27/21 08/27/21 Range/Units 02:14 06:19 07:20 RBC 2.56 L (3.80-5.40) m/uL Hgb 7.8 L (11.4-16.0) gm/dL Hct 24.9 L (34.0-46.0) % Lymphocytes # 0.4 L (1.0-4.8) k/uL Sodium (137-145) mmol/L Potassium (3.5-5.1) mmol/L Carbon Dioxide (22-30) mmol/L BUN (7-17) mg/dL Creatinine (0.52-1.04) mg/dL Glucose (74-99) mg/dL POC Glucose (mg/dL) 270 H 579 H (75-99) mg/dL Free [place] LC, Quant (0.33-1.94) mg/dL Free [place] LC, Quant (0.57-2.63) mg/dL 08/27/21 08/27/21 08/27/21 Range/Units 07:20 07:28 08:14 RBC (3.80-5.40) m/uL Hgb (11.4-16.0) gm/dL Hct (34.0-46.0) % Lymphocytes # (1.0-4.8) k/uL Sodium 128 L (137-145) mmol/L Potassium 5.7 H (3.5-5.1) mmol/L Carbon Dioxide 14 L (22-30) mmol/L BUN 52 H (7-17) mg/dL Creatinine 8.89 H* (0.52-1.04) mg/dL Glucose 654 H* (74-99) mg/dL POC Glucose (mg/dL) >600 H 592 H (75-99) mg/dL Free [place] LC, Quant (0.33-1.94) mg/dL Free Lambda LC, Quant (0.57-2.63) mg/dL 08/27/21 08/27/21 08/27/21 Range/Units 08:50 09:29 10:06 RBC (3.80-5.40) m/uL Hgb (11.4-16.0) gm/dL Hct (34.0-46.0) % Lymphocytes # (1.0-4.8) k/uL Sodium (137-145) mmol/L Potassium (3.5-5.1) mmol/L Carbon Dioxide (22-30) mmol/L BUN (7-17) mg/dL Creatinine (0.52-1.04) mg/dL Glucose (74-99) mg/dL POC Glucose (mg/dL) 538 H 329 H 211 H (75-99) mg/dL Free [place] LC, Quant (0.33-1.94) mg/dL Free [place] LC, Quant (0.57-2.63) mg/dL 08/27/21 Range/Units 13:13 RBC (3.80-5.40) m/uL Hgb (11.4-16.0) gm/dL Hct (34.0-46.0) % Lymphocytes # (1.0-4.8) k/uL Sodium (137-145) mmol/L Potassium (3.5-5.1) mmol/L Carbon Dioxide (22-30) mmol/L BUN (7-17) mg/dL Creatinine (0.52-1.04) mg/dL Glucose (74-99) mg/dL POC Glucose (mg/dL) 273 H (75-99) mg/dL Free [place] LC, Quant (0.33-1.94) mg/dL Free Lambda LC, Quant (0.57-2.63) mg/dL Assessment and Plan Time with Patient: Less than 30
[2021-08-27 15:17] LABS: Glucose,Whole Blood 180 mg/dL (75-99)
[2021-08-27 15:25] LABS: African American GFR (CKD) 16 (>60 ml/min/1.73 sqM); Anion Gap 11 mmol/L; Blood Urea Nitrogen 22 mg/dL (7-17); Carbon Dioxide 25 mmol/L (22-30); Chloride 97 mmol/L (98-107); Glucose 196 mg/dL (74-99); Non-African American GFR(CKD) 14 (>60 ml/min/1.73 sqM); Potassium 3.8 mmol/L (3.5-5.1); Sodium 133 mmol/L (137-145)
--- NOTE | 2021-08-27 15:39 | P.PN ---
Subjective Progress Note Date: 08/27/21 Hemoglobin is remaining in safe range, B12 has been supplemented. Monoclonal work-up negative. Objective - Vital Signs Vital signs: Vital Signs Temp 98.0 F 08/27/21 12:37 Pulse 78 08/27/21 12:37 Resp 17 08/27/21 12:37 BP 145/73 08/27/21 13:26 Pulse Ox 94 L 08/27/21 12:37 Intake & Output 08/26/21 08/27/21 08/27/21 18:59 06:59 18:59 Intake Total 82.500 Output Total 4000 Balance -3917.500 Intake: Intake, IV Titration 82.500 Amount Insulin Regular 100 unit 82.500 In Sodium Chloride 0.9% 100 ml @ Titrate IV .Q0M [facility] Rx#:[id number] Output: Hemodialysis 4000 Other: Voiding Method Diaper Toilet Toilet Incontinent Diaper Incontinent # Voids 2 - Exam - Constitutional General appearance: cooperative, no acute distress, thin - EENT Eyes: anicteric sclerae, EOMI ENT: hearing grossly normal, normal oropharynx - Neck Neck: no lymphadenopathy - Respiratory Respiratory: bilateral: diminished - Cardiovascular Rhythm: regular Heart sounds: normal: S1, S2 Abnormal Heart Sounds: no systolic murmur, no diastolic murmur, no rub, no S3 Gallop, no S4 Gallop, no click, no other leg Peripheral Edema: bilateral: None - Gastrointestinal General gastrointestinal: no absent bowel sounds, no decreased bowel sounds, no distended, no hepatomegaly, no hyperactive bowel sounds, normal bowel sounds, no organomegaly, no rigid, no scaphoid, soft, no splenomegaly, no tenderness, no umbilical hernia, no ventral hernia - Integumentary Integumentary: normal, pale - Neurologic patient reports vision impairment, did not perform vision acuity exam Neurologic: CNII-XII intact - Musculoskeletal Musculoskeletal: strength equal bilaterally - Psychiatric Psychiatric: A&O x's 3, appropriate affect, intact judgment & insight - Labs CBC & Chem 7: 08/27/21 07:20 08/27/21 14:57 Labs: Abnormal Lab Results - Last 24 Hours (Table) 08/24/21 08/26/21 08/27/21 Range/Units 06:56 19:56 02:14 RBC (3.80-5.40) m/uL Hgb (11.4-16.0) gm/dL Hct (34.0-46.0) % Lymphocytes # (1.0-4.8) k/uL Sodium (137-145) mmol/L Potassium (3.5-5.1) mmol/L Chloride (98-107) mmol/L Carbon Dioxide (22-30) mmol/L BUN (7-17) mg/dL Creatinine (0.52-1.04) mg/dL Glucose (74-99) mg/dL POC Glucose (mg/dL) 239 H 270 H (75-99) mg/dL Free [place] LC, Quant 27.35 H (0.33-1.94) mg/dL 08/27/21 08/27/21 08/27/21 Range/Units 06:19 07:20 07:20 RBC 2.56 L (3.80-5.40) m/uL Hgb 7.8 L (11.4-16.0) gm/dL Hct 24.9 L (34.0-46.0) % Lymphocytes # 0.4 L (1.0-4.8) k/uL Sodium 128 L (137-145) mmol/L Potassium 5.7 H (3.5-5.1) mmol/L Chloride (98-107) mmol/L Carbon Dioxide 14 L (22-30) mmol/L BUN 52 H (7-17) mg/dL Creatinine 8.89 H* (0.52-1.04) mg/dL Glucose 654 H* (74-99) mg/dL POC Glucose (mg/dL) 579 H (75-99) mg/dL Free [place] LC, Quant (0.33-1.94) mg/dL 08/27/21 08/27/21 08/27/21 Range/Units 07:28 08:14 08:50 RBC (3.80-5.40) m/uL Hgb (11.4-16.0) gm/dL Hct (34.0-46.0) % Lymphocytes # (1.0-4.8) k/uL Sodium (137-145) mmol/L Potassium (3.5-5.1) mmol/L Chloride (98-107) mmol/L Carbon Dioxide (22-30) mmol/L BUN (7-17) mg/dL Creatinine (0.52-1.04) mg/dL Glucose (74-99) mg/dL POC Glucose (mg/dL) >600 H 592 H 538 H (75-99) mg/dL Free [place] LC, Quant (0.33-1.94) mg/dL 08/27/21 08/27/21 08/27/21 Range/Units 09:29 10:06 13:13 RBC (3.80-5.40) m/uL Hgb (11.4-16.0) gm/dL Hct (34.0-46.0) % Lymphocytes # (1.0-4.8) k/uL Sodium (137-145) mmol/L Potassium (3.5-5.1) mmol/L Chloride (98-107) mmol/L Carbon Dioxide (22-30) mmol/L BUN (7-17) mg/dL Creatinine (0.52-1.04) mg/dL Glucose (74-99) mg/dL POC Glucose (mg/dL) 329 H 211 H 273 H (75-99) mg/dL Free [place] LC, Quant (0.33-1.94) mg/dL 08/27/21 08/27/21 08/27/21 Range/Units 14:11 14:57 15:15 RBC (3.80-5.40) m/uL Hgb (11.4-16.0) gm/dL Hct (34.0-46.0) % Lymphocytes # (1.0-4.8) k/uL Sodium 133 L (137-145) mmol/L Potassium (3.5-5.1) mmol/L Chloride 97 L (98-107) mmol/L Carbon Dioxide (22-30) mmol/L BUN 22 H (7-17) mg/dL Creatinine 4.09 H (0.52-1.04) mg/dL Glucose 196 H (74-99) mg/dL POC Glucose (mg/dL) 275 H 180 H (75-99) mg/dL Free [place] LC, Quant (0.33-1.94) mg/dL Assessment and Plan (1) Normocytic anemia Current Visit: Yes Status: Acute Code(s): D64.9 - ANEMIA, UNSPECIFIED SNOMED Code(s): 196367375 (2) Leukopenia Current Visit: Yes Status: Acute Code(s): D72.819 - DECREASED WHITE BLOOD CELL COUNT, UNSPECIFIED SNOMED Code(s): 96682946 (3) CKD (chronic kidney disease) Current Visit: No Status: Acute Code(s): N18.9 - CHRONIC KIDNEY DISEASE, UNSPECIFIED SNOMED Code(s): 304674134 (4) ESRD (end stage renal disease) on dialysis Current Visit: No Status: Acute Code(s): N18.6 - END STAGE RENAL DISEASE; Z99.2 - DEPENDENCE ON RENAL DIALYSIS SNOMED Code(s): 707691702 (5) Transaminitis Current Visit: No Status: Acute Code(s): R74.01 - ELEVATION OF LEVELS OF LIVER TRANSAMINASE LEVELS SNOMED Code(s): 248367857 Plan: Chest x-ray: report reviewed CT scan - abdomen: report reviewed CT scan - chest: report reviewed CT scan - pelvis: report reviewed Assessment and Plan (1) Bicytopenia Narrative/Plan: Patient's hemoglobin was noted to be low back in late 2020, likely during an episode of acute illness, then normal in May 2021. No transfusions are needed at this time. Defer epogen to Nephrology Monoclonal work-up negative B12 supplemented Daily CBC Current Visit: Yes Status: Acute Priority: High Code(s): D75.89 - OTHER SPECIFIED DISEASES OF BLOOD AND BLOOD-FORMING ORGANS SNOMED Code(s): 03961157
[2021-08-27 16:45] LABS: Glucose,Whole Blood 103 mg/dL (75-99)
--- NOTE | 2021-08-27 17:12 | P.PN ---
Subjective Patient is seen for follow-up for end-stage renal disease. Currently maintained on a Monday schedule but receiving daily treatments mostly for volume overload. Currently maintained on antibiotics for pneumonia. Fever has now resolved. Blood pressure continues to fluctuate with improvement post dialysis. Antihistone antibodies were positive. These were done due to pericardial effusion and the fact that patient was maintained on hydralazine and minoxidil. Patient's blood pressure has been difficult to control. Minoxidil was discontinued however hydralazine can also be associated with pericardial effusion. But given the improvement in the pericardial effusion and volume status and difficult to control hypertension I will continue with the hydralazine for now. Seen on HD today On insulin drip Blood sugars have been fluctuating Objective - Vital Signs Vital signs: Vital Signs Temp 98.0 F 08/27/21 12:37 Pulse 78 08/27/21 12:37 Resp 17 08/27/21 12:37 BP 145/73 08/27/21 13:26 Pulse Ox 94 L 08/27/21 12:37 Intake & Output 08/26/21 08/27/21 08/27/21 18:59 06:59 18:59 Intake Total 86.208 Output Total 4000 Balance -3913.792 Intake: Intake, IV Titration 86.208 Amount Insulin Regular 100 unit 86.208 In Sodium Chloride 0.9% 100 ml @ Titrate IV .Q0M [facility] Rx#:[id number] Output: Hemodialysis 4000 Other: Voiding Method Diaper Toilet Toilet Incontinent Diaper Incontinent # Voids 2 - Exam Awake, comfortable, not in any acute distress Examination of the heart S1 and S2 Examination lungs bilateral breath sounds are heard Abdomen is soft Examination lower extremities shows no significant edema [employer]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[employer] exam grossly intact - Labs CBC & Chem 7: 08/27/21 07:20 08/27/21 14:57 Labs: Abnormal Lab Results - Last 24 Hours (Table) 08/24/21 08/26/21 08/27/21 Range/Units 06:56 19:56 02:14 RBC (3.80-5.40) m/uL Hgb (11.4-16.0) gm/dL Hct (34.0-46.0) % Lymphocytes # (1.0-4.8) k/uL Sodium (137-145) mmol/L Potassium (3.5-5.1) mmol/L Chloride (98-107) mmol/L Carbon Dioxide (22-30) mmol/L BUN (7-17) mg/dL Creatinine (0.52-1.04) mg/dL Glucose (74-99) mg/dL POC Glucose (mg/dL) 239 H 270 H (75-99) mg/dL Free [place] LC, Quant 27.35 H (0.33-1.94) mg/dL 08/27/21 08/27/21 08/27/21 Range/Units 06:19 07:20 07:20 RBC 2.56 L (3.80-5.40) m/uL Hgb 7.8 L (11.4-16.0) gm/dL Hct 24.9 L (34.0-46.0) % Lymphocytes # 0.4 L (1.0-4.8) k/uL Sodium 128 L (137-145) mmol/L Potassium 5.7 H (3.5-5.1) mmol/L Chloride (98-107) mmol/L Carbon Dioxide 14 L (22-30) mmol/L BUN 52 H (7-17) mg/dL Creatinine 8.89 H* (0.52-1.04) mg/dL Glucose 654 H* (74-99) mg/dL POC Glucose (mg/dL) 579 H (75-99) mg/dL Free [place] LC, Quant (0.33-1.94) mg/dL 08/27/21 08/27/21 08/27/21 Range/Units 07:28 08:14 08:50 RBC (3.80-5.40) m/uL Hgb (11.4-16.0) gm/dL Hct (34.0-46.0) % Lymphocytes # (1.0-4.8) k/uL Sodium (137-145) mmol/L Potassium (3.5-5.1) mmol/L Chloride (98-107) mmol/L Carbon Dioxide (22-30) mmol/L BUN (7-17) mg/dL Creatinine (0.52-1.04) mg/dL Glucose (74-99) mg/dL POC Glucose (mg/dL) >600 H 592 H 538 H (75-99) mg/dL Free [place] LC, Quant (0.33-1.94) mg/dL 08/27/21 08/27/21 08/27/21 Range/Units 09:29 10:06 13:13 RBC (3.80-5.40) m/uL Hgb (11.4-16.0) gm/dL Hct (34.0-46.0) % Lymphocytes # (1.0-4.8) k/uL Sodium (137-145) mmol/L Potassium (3.5-5.1) mmol/L Chloride (98-107) mmol/L Carbon Dioxide (22-30) mmol/L BUN (7-17) mg/dL Creatinine (0.52-1.04) mg/dL Glucose (74-99) mg/dL POC Glucose (mg/dL) 329 H 211 H 273 H (75-99) mg/dL Free [place] LC, Quant (0.33-1.94) mg/dL 08/27/21 08/27/21 08/27/21 Range/Units 14:11 14:57 15:15 RBC (3.80-5.40) m/uL Hgb (11.4-16.0) gm/dL Hct (34.0-46.0) % Lymphocytes # (1.0-4.8) k/uL Sodium 133 L (137-145) mmol/L Potassium (3.5-5.1) mmol/L Chloride 97 L (98-107) mmol/L Carbon Dioxide (22-30) mmol/L BUN 22 H (7-17) mg/dL Creatinine 4.09 H (0.52-1.04) mg/dL Glucose 196 H (74-99) mg/dL POC Glucose (mg/dL) 275 H 180 H (75-99) mg/dL Free [place] LC, Quant (0.33-1.94) mg/dL 08/27/21 Range/Units 16:44 RBC (3.80-5.40) m/uL Hgb (11.4-16.0) gm/dL Hct (34.0-46.0) % Lymphocytes # (1.0-4.8) k/uL Sodium (137-145) mmol/L Potassium (3.5-5.1) mmol/L Chloride (98-107) mmol/L Carbon Dioxide (22-30) mmol/L BUN (7-17) mg/dL Creatinine (0.52-1.04) mg/dL Glucose (74-99) mg/dL POC Glucose (mg/dL) 103 H (75-99) mg/dL Free Try[place] LC, Quant (0.33-1.94) mg/dL Assessment and Plan Assessment: 1. End-stage renal disease on hemodialysis on a Monday schedule 2. Fluid overload, improved 3. Left lower lobe pneumonia 4. Recent hospitalization for fluid overload with large pericardial effusion status post aggressive ultrafiltration of about 12 L during her stay. Antihistone antibodies were positive these are associated with use of minoxidil and hydralazine causing pericardial effusion/pericarditis. However the pe ricardial effusion was much smaller on the CT and I planned to continue with hydralazine but ECHO report from yesterday shows moderate sized pericardial effusion again. 5. Hypertension partly volume sensitive improves with aggressive ultrafiltration. Will d/c hydralazine 6. Anemia, no active bleeding noted status post packed RBCs transfusion, maintained on Aranesp, Plan: Antihistone antibody was positive and this is associated with pericarditis/pericardial effusion with use of hydralazine and minoxidil however given the uncontrolled hypertension I had initially planned to continue with hydralazine given the improvement in pericardial effusion on CT scan with agg ressive ultrafiltration with HD. Repeat ECHO however continues to show moderate sized pericardial effusion. Therefore I will D/C hydralazine.
[2021-08-27 18:29] LABS: Glucose,Whole Blood 109 mg/dL (75-99)
[2021-08-27 19:22] LABS: Glucose,Whole Blood 103 mg/dL (75-99)
[2021-08-27] MEDS: ISOSORBIDE MONONITRATE ER 30 MG TAB.ER.24H PO SCH (20:56)
[2021-08-27] MEDS: MELATONIN 5 MG TABLET PO PRN (21:02)
[2021-08-27 22:02] LABS: Glucose,Whole Blood 277 mg/dL (75-99)
[2021-08-27 23:06] LABS: Glucose,Whole Blood 238 mg/dL (75-99)
[2021-08-28 00:25] LABS: Glucose,Whole Blood 137 mg/dL (75-99)
[2021-08-28] MEDS: HYDROmorphone 0.5 MG/0.5 ML SYRINGE IVP PRN ×7 (00:30→22:26)
[2021-08-28 02:12] LABS: Glucose,Whole Blood 187 mg/dL (75-99)
[2021-08-28 04:08] LABS: Glucose,Whole Blood 174 mg/dL (75-99)
[2021-08-28 05:25] LABS: ALT 26 U/L (4-34); AST 24 U/L (14-36); African American GFR (CKD) 10 (>60 ml/min/1.73 sqM); Albumin 3.7 g/dL (3.5-5.0); Albumin/Globulin Ratio 1.3; Alkaline Phosphatase 155 U/L (38-126); Anion Gap 13 mmol/L; Blood Urea Nitrogen 42 mg/dL (7-17); Calcium 9.1 mg/dL (8.4-10.2); Carbon Dioxide 23 mmol/L (22-30); Chloride 100 mmol/L (98-107); Globulin 2.9 g/dL; Glucose 148 mg/dL (74-99); Non-African American GFR(CKD) 8 (>60 ml/min/1.73 sqM); Sodium 136 mmol/L (137-145); Total Bilirubin 0.4 mg/dL (0.2-1.3); Total Protein 6.6 g/dL (6.3-8.2)
[2021-08-28 05:30] LABS: Vancomycin,Random 19.6 ug/mL
[2021-08-28 06:06] LABS: Glucose,Whole Blood 71 mg/dL (75-99)
[2021-08-28 07:10] LABS: Glucose,Whole Blood 204 mg/dL (75-99)
[2021-08-28 08:02] LABS: Glucose,Whole Blood 198 mg/dL (75-99)
[2021-08-28] MEDS: lisinopriL 20 MG TAB PO SCH (08:30)
[2021-08-28] MEDS: CYANOCOBALAMIN 500 MCG TAB PO SCH (08:30)
[2021-08-28] MEDS: carvediloL 12.5 MG TAB PO SCH ×2 (08:31→18:21)
[2021-08-28] MEDS: ESCITALOPRAM 20 MG TAB PO SCH (08:32)
[2021-08-28] MEDS: HEPARIN SODIUM,PORCINE/PF 5,000 UNIT/0.5 ML SYRINGE SQ SCH ×2 (08:35→20:54)
[2021-08-28] MEDS: INSULIN ASPART (NovoLOG) 100 UNIT/ML VIAL SQ SCH ×5 (08:35→23:02)
[2021-08-28] MEDS: ASPIRIN 81 MG PO SCH (08:36)
[2021-08-28] MEDS: SEVELAMER 800 MG TAB PO SCH ×3 (09:12→18:21)
[2021-08-28] MEDS: cloNIDine HCL 0.1 MG TAB PO SCH ×3 (09:12→20:53)
[2021-08-28] MEDS: PANTOPRAZOLE 40 MG TABLET PO SCH ×2 (09:16→20:53)
[2021-08-28 09:54] LABS: Basophils # (A) 0.01 X 10*3/uL (0.00-0.10); Basophils % (A) 0.2 %; Eosinophils % (A) 6.8 %; Immature Grans, Automated 1.8 %; Lymphocytes # (A) 0.57 X 10*3/uL (0.90-5.00); Lymphocytes % (A) 12.8 %; MCH 28.9 pg (27.0-32.0); MCHC 31.8 g/dL (32.0-37.0); MCV 90.9 fL (80.0-97.0); Mean Platelet Volume 10.7 fL (9.5-12.2); Monocytes # (A) 0.41 X 10*3/uL (0.20-1.00); Monocytes % (A) 9.2 %; NRBC Per 100 WBC 0 /100 WBCS (0.0-0.0); Neutrophils # (A) 3.07 X 10*3/uL (1.80-7.70); Neutrophils % (A) 69.2 %; Platelet Count 262 X 10*3/uL (140-440); RBC 2.42 X 10*6/uL (4.10-5.20); RDW 14.3 % (11.5-14.5); WBC 4.44 X 10*3/uL (4.50-10.00)
[2021-08-28 10:00] LABS: Glucose,Whole Blood 133 mg/dL (75-99)
[2021-08-28] MEDS ORDERED: VANCOMYCIN 750 MG in SODIUM CHLORIDE 0.9% 250 ML IVPB ONE (10:00)
[2021-08-28 11:56] LABS: Glucose,Whole Blood 71 mg/dL (75-99)
--- NOTE | 2021-08-28 13:01 | P.PN ---
Subjective Patient is seen for follow-up for end-stage renal disease. Currently maintained on a Monday schedule but receiving daily treatments mostly for volume overload. Currently maintained on antibiotics for pneumonia. Fever has now resolved. Blood pressure continues to fluctuate with improvement post dialysis. Hydralazine and minoxidil now discontinued due to persistent moderate pericardial effusion on echocardiogram with positive antihistone antibodies. On insulin drip Blood sugars have been fluctuating Overall feeling better. Blood pressure is improved. Objective - Vital Signs Vital signs: Vital Signs Temp 98.6 F 08/28/21 08:00 Pulse 79 08/28/21 08:10 Resp 16 08/28/21 08:10 BP 173/80 08/28/21 08:00 Pulse Ox 95 08/28/21 08:00 Intake & Output 08/27/21 08/28/21 08/28/21 18:59 06:59 18:59 Intake Total 86.208 820.1 9.967 Output Total 4000 Balance -3913.792 820.1 9.967 Intake: Intake, IV Titration 86.208 20.1 9.967 Amount Insulin Regular 100 unit 86.208 20.1 9.967 In Sodium Chloride 0.9% 100 ml @ Titrate IV .Q0M [facility] Rx#:[id number] Oral 800 Output: Hemodialysis 4000 Other: Voiding Method Toilet Toilet Toilet # Voids 4 # Bowel Movements 1 - Exam Awake, comfortable, not in any acute distress Examination of the heart S1 and S2 Examination lungs bilateral breath sounds are heard Abdomen is soft 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 - Labs CBC & Chem 7: 08/28/21 04:18 08/28/21 04:18 Labs: Abnormal Lab Results - Last 24 Hours (Table) 08/27/21 08/27/21 08/27/21 Range/Units 13:13 14:11 14:57 WBC (4.50-10.00) X 10*3/uL RBC (4.10-5.20) X 10*6/uL Hgb (12.0-15.0) g/dL Hct (37.2-46.3) % MCHC (32.0-37.0) g/dL Immature Gran # (0.00-0.04) X 10*3/uL Lymphocytes # (0.90-5.00) X 10*3/uL Sodium 133 L (137-145) mmol/L Chloride 97 L (98-107) mmol/L BUN 22 H (7-17) mg/dL Creatinine 4.09 H (0.52-1.04) mg/dL Glucose 196 H (74-99) mg/dL POC Glucose (mg/dL) 273 H 275 H (75-99) mg/dL Alkaline Phosphatase (38-126) U/L 08/27/21 08/27/21 08/27/21 Range/Units 15:15 16:44 18:27 WBC (4.50-10.00) X 10*3/uL RBC (4.10-5.20) X 10*6/uL Hgb (12.0-15.0) g/dL Hct (37.2-46.3) % MCHC (32.0-37.0) g/dL Immature Gran # (0.00-0.04) X 10*3/uL Lymphocytes # (0.90-5.00) X 10*3/uL Sodium (137-145) mmol/L Chloride (98-107) mmol/L BUN (7-17) mg/dL Creatinine (0.52-1.04) mg/dL Glucose (74-99) mg/dL POC Glucose (mg/dL) 180 H 103 H 109 H (75-99) mg/dL Alkaline Phosphatase (38-126) U/L 08/27/21 08/27/21 08/27/21 Range/Units 19:19 21:58 23:05 WBC (4.50-10.00) X 10*3/uL RBC (4.10-5.20) X 10*6/uL Hgb (12.0-15.0) g/dL Hct (37.2-46.3) % MCHC (32.0-37.0) g/dL Immature Gran # (0.00-0.04) X 10*3/uL Lymphocytes # (0.90-5.00) X 10*3/uL Sodium (137-145) mmol/L Chloride (98-107) mmol/L BUN (7-17) mg/dL Creatinine (0.52-1.04) mg/dL Glucose (74-99) mg/dL POC Glucose (mg/dL) 103 H 277 H 238 H (75-99) mg/dL Alkaline Phosphatase (38-126) U/L 08/28/21 08/28/21 08/28/21 Range/Units 00:23 02:10 04:05 WBC (4.50-10.00) X 10*3/uL RBC (4.10-5.20) X 10*6/uL Hgb (12.0-15.0) g/dL Hct (37.2-46.3) % MCHC (32.0-37.0) g/dL Immature Gran # (0.00-0.04) X 10*3/uL Lymphocytes # (0.90-5.00) X 10*3/uL Sodium (137-145) mmol/L Chloride (98-107) mmol/L BUN (7-17) mg/dL Creatinine (0.52-1.04) mg/dL Glucose (74-99) mg/dL POC Glucose (mg/dL) 137 H 187 H 174 H (75-99) mg/dL Alkaline Phosphatase (38-126) U/L 08/28/21 08/28/21 08/28/21 Range/Units 04:18 04:18 06:05 WBC 4.44 L (4.50-10.00) X 10*3/uL RBC 2.42 L (4.10-5.20) X 10*6/uL Hgb 7.0 L (12.0-15.0) g/dL Hct 22.0 L (37.2-46.3) % MCHC 31.8 L (32.0-37.0) g/dL Immature Gran # 0.08 H (0.00-0.04) X 10*3/uL Lymphocytes # 0.57 L (0.90-5.00) X 10*3/uL Sodium 136 L (137-145) mmol/L Chloride (98-107) mmol/L BUN 42 H (7-17) mg/dL Creatinine 6.22 H (0.52-1.04) mg/dL Glucose 148 H (74-99) mg/dL POC Glucose (mg/dL) 71 L (75-99) mg/dL Alkaline Phosphatase 155 H (38-126) U/L 08/28/21 08/28/21 08/28/21 Range/Units 07:09 08:00 09:58 WBC (4.50-10.00) X 10*3/uL RBC (4.10-5.20) X 10*6/uL Hgb (12.0-15.0) g/dL Hct (37.2-46.3) % MCHC (32.0-37.0) g/dL Immature Gran # (0.00-0.04) X 10*3/uL Lymphocytes # (0.90-5.00) X 10*3/uL Sodium (137-145) mmol/L Chloride (98-107) mmol/L BUN (7-17) mg/dL Creatinine (0.52-1.04) mg/dL Glucose (74-99) mg/dL POC Glucose (mg/dL) 204 H 198 H 133 H (75-99) mg/dL Alkaline Phosphatase (38-126) U/L 08/28/21 Range/Units 11:55 WBC (4.50-10.00) X 10*3/uL RBC (4.10-5.20) X 10*6/uL Hgb (12.0-15.0) g/dL Hct (37.2-46.3) % MCHC (32.0-37.0) g/dL Immature Gran # (0.00-0.04) X 10*3/uL Lymphocytes # (0.90-5.00) X 10*3/uL Sodium (137-145) mmol/L Chloride (98-107) mmol/L BUN (7-17) mg/dL Creatinine (0.52-1.04) mg/dL Glucose (74-99) mg/dL POC Glucose (mg/dL) 71 L (75-99) mg/dL Alkaline Phosphatase (38-126) U/L Assessment and Plan Assessment: 1. End-stage renal disease on hemodialysis on a Monday schedule 2. Fluid overload, improved 3. Left lower lobe pneumonia 4. Recent hospitalization for fluid overload with large pericardial effusion status post aggressive ultrafiltration of about 12 L during her stay. Antihistone antibodies were positive these are associated with use of minoxidil and hydralazine causing pericardial effusion/pericarditis. However the pericardial effusion was much smaller on the CT and I planned to continue with hydralazine but ECHO report from yesterday shows moderate sized pericardial effusion again. Therefore hydralazine was discontinued 5. Hypertension partly volume sensitive improves with aggressive ultrafiltration. Will d/c hydralazine 6. Anemia, no active bleeding noted status post packed RBCs transfusion, maintained on Aranesp, 7. Uncontrolled blood sugars, currently on insulin drip and much improved. Plan: Next hemodialysis on 08/30/2021.
[2021-08-28 13:20] LABS: Potassium 4.2 mmol/L (3.5-5.1)
[2021-08-28 13:21] LABS: African American GFR (CKD) 8 (>60 ml/min/1.73 sqM); Anion Gap 12 mmol/L; Blood Urea Nitrogen 51 mg/dL (7-17); Calcium 9.1 mg/dL (8.4-10.2); Carbon Dioxide 24 mmol/L (22-30); Chloride 101 mmol/L (98-107); Non-African American GFR(CKD) 7 (>60 ml/min/1.73 sqM); Sodium 137 mmol/L (137-145)
--- NOTE | 2021-08-28 13:24 | P.PN ---
Subjective Progress Note Date: 08/28/21 08/27/2021 Patient evaluated today during hemodialysis. Continues with persistent cough, which has been nonproductive. Continues on 2 L nasal cannula can wean as tolerated. Patient is afebrile, no acute events overnight. Blood sugars continued extreme highs and lows, patient was started back on insulin drip, was acetone positive, blood sugar in the 600s, currently anion gap 14. We will repeat labs if gap has closed we will transition patient to subcutaneous insulin. Echocardiogram was done yesterday which shows EF 55-60% with moderate to severe tricuspid regurg, trace mitral regurg, severe pulmonary hypertension and a moderate generalized pericardial effusion. Once medically stable at [facility] patient will continue with vancomycin for 2 weeks during dialysis recommended by ID. 08/28/2021 Patient evaluated today resting in bed. Hydralazine was discontinued as echo redemonstrated pericardial effusion. Sugars have been better controlled as patient continues on the insulin gtt. Pending repeat anion gap, once closed will transition patient. She states overall she is feeling better as her sugars have not been having extreme highs and lows and her blood pressure has been more controlled in the last 24 hours. Cough is slightly better today still non productive. Discussed keeping patient on gtt until anion gap is less than 10, will transition and monitor sugars and should be able to DC home. Review of Systems Constitutional: Denied any fatigue denied any fever. Cardio vascular: denied any chest pain, palpitations Gastrointestinal: denied any nausea, vomiting, diarrhea Pulmonary: Denies shortness of breath, reports dry persistant cough Neurologic denied any new focal deficits All inpatient medications were reviewed and appropriate changes in these medications as dictated in the interval history and assessment and plan. PHYSICAL EXAMINATION: GENERAL: The patient is alert and oriented x3, ill appearing, fatigued. Well developed, well nourished. HEENT: Pupils are round and equally reacting to light. EOMI. No scleral icterus. No conjunctival pallor. Normocephalic, atraumatic. No pharyngeal erythema. No thyromegaly. CARDIOVASCULAR: S1 and S2 muffled PULMONARY: Chest is diminished bilaterally with some scattered rhonchi noted ABDOMEN: Soft, nontender, nondistended, normoactive bowel sounds. No palpable organomegaly. dry cough on exam MUSCULOSKELETAL: No joint swelling or deformity. EXTREMITIES: No cyanosis, clubbing, or pedal edema. NEUROLOGICAL: Gross neurological examination did not reveal any focal deficits. SKIN: No rashes. Assessment: -Sepsis: Secondary to bilateral interstitial multifocal pneumonia, possibly gram negative, continues on antibiotics -End-stage renal disease, hemodialysis dependent monday -Hyponatremia secondary to chronic kidney disease, improved -Hyperkalemia secondary to chronic renal disease, improved -Anemia, chronic -Type 1 diabetes mellitus, uncontrolled with hyperglycemia as well as hypoglycemia, brittle -Pleuritic chest pain and a parapneumonic effusion -Hypertension secondary to renal disease -Depression -DVT prophylaxis: subcutaneous heparin -GI prophylaxis -Full Code Plan Continue on insulin gtt Transition once anion gap less than 10 Recheck labs Wean FiO2 as tolerated Continue all other supportive care Recheck labs in AM The impression and plan of care has been dictated by Nurse Jeimy Pra ctitioner as directed. Dr. Sudeep MD I have performed a history and physical examination and medical decision making of this patient, discussed the same with the dictator, and agree with the dictat ors assessment and plan as written, documented as a scribe. Based on total visit time, I have performed more than 50% of this visit. Objective - Vital Signs Vital signs: Vital Signs Temp 98.6 F 08/28/21 08:00 Pulse 79 08/28/21 08:10 Resp 16 08/28/21 08:10 BP 173/80 08/28/21 08:00 Pulse Ox 95 08/28/21 08:00 Intake & Output 08/27/21 08/28/21 08/28/21 18:59 06:59 18:59 Intake Total 86.208 820.1 9.967 Output Total 4000 Balance -3913.792 820.1 9.967 Intake: Intake, IV Titration 86.208 20.1 9.967 Amount Insulin Regular 100 unit 86.208 20.1 9.967 In Sodium Chloride 0.9% 100 ml @ Titrate IV .Q0M [facility] Rx#:[id number] Oral 800 Output: Hemodialysis 4000 Other: Voiding Method Toilet Toilet Toilet # Voids 4 # Bowel Movements 1 - Labs CBC & Chem 7: 08/28/21 04:18 08/28/21 04:18 Labs: Abnormal Lab Results - Last 24 Hours (Table) 08/27/21 08/27/21 08/27/21 Range/Units 13:13 14:11 14:57 WBC (4.50-10.00) X 10*3/uL RBC (4.10-5.20) X 10*6/uL Hgb (12.0-15.0) g/dL Hct (37.2-46.3) % MCHC (32.0-37.0) g/dL Immature Gran # (0.00-0.04) X 10*3/uL Lymphocytes # (0.90-5.00) X 10*3/uL Sodium 133 L (137-145) mmol/L Chloride 97 L (98-107) mmol/L BUN 22 H (7-17) mg/dL Creatinine 4.09 H (0.52-1.04) mg/dL Glucose 196 H (74-99) mg/dL POC Glucose (mg/dL) 273 H 275 H (75-99) mg/dL Alkaline Phosphatase (38-126) U/L 08/27/21 08/27/21 08/27/21 Range/Units 15:15 16:44 18:27 WBC (4.50-10.00) X 10*3/uL RBC (4.10-5.20) X 10*6/uL Hgb (12.0-15.0) g/dL Hct (37.2-46.3) % MCHC (32.0-37.0) g/dL Immature Gran # (0.00-0.04) X 10*3/uL Lymphocytes # (0.90-5.00) X 10*3/uL Sodium (137-145) mmol/L Chloride (98-107) mmol/L BUN (7-17) mg/dL Creatinine (0.52-1.04) mg/dL Glucose (74-99) mg/dL POC Glucose (mg/dL) 180 H 103 H 109 H (75-99) mg/dL Alkaline Phosphatase (38-126) U/L 08/27/21 08/27/21 08/27/21 Range/Units 19:19 21:58 23:05 WBC (4.50-10.00) X 10*3/uL RBC (4.10-5.20) X 10*6/uL Hgb (12.0-15.0) g/dL Hct (37.2-46.3) % MCHC (32.0-37.0) g/dL Immature Gran # (0.00-0.04) X 10*3/uL Lymphocytes # (0.90-5.00) X 10*3/uL Sodium (137-145) mmol/L Chloride (98-107) mmol/L BUN (7-17) mg/dL Creatinine (0.52-1.04) mg/dL Glucose (74-99) mg/dL POC Glucose (mg/dL) 103 H 277 H 238 H (75-99) mg/dL Alkaline Phosphatase (38-126) U/L 08/28/21 08/28/21 08/28/21 Range/Units 00:23 02:10 04:05 WBC (4.50-10.00) X 10*3/uL RBC (4.10-5.20) X 10*6/uL Hgb (12.0-15.0) g/dL Hct (37.2-46.3) % MCHC (32.0-37.0) g/dL Immature Gran # (0.00-0.04) X 10*3/uL Lymphocytes # (0.90-5.00) X 10*3/uL Sodium (137-145) mmol/L Chloride (98-107) mmol/L BUN (7-17) mg/dL Creatinine (0.52-1.04) mg/dL Glucose (74-99) mg/dL POC Glucose (mg/dL) 137 H 187 H 174 H (75-99) mg/dL Alkaline Phosphatase (38-126) U/L 08/28/21 08/28/21 08/28/21 Range/Units 04:18 04:18 06:05 WBC 4.44 L (4.50-10.00) X 10*3/uL RBC 2.42 L (4.10-5.20) X 10*6/uL Hgb 7.0 L (12.0-15.0) g/dL Hct 22.0 L (37.2-46.3) % MCHC 31.8 L (32.0-37.0) g/dL Immature Gran # 0.08 H (0.00-0.04) X 10*3/uL Lymphocytes # 0.57 L (0.90-5.00) X 10*3/uL Sodium 136 L (137-145) mmol/L Chloride (98-107) mmol/L BUN 42 H (7-17) mg/dL Creatinine 6.22 H (0.52-1.04) mg/dL Glucose 148 H (74-99) mg/dL POC Glucose (mg/dL) 71 L (75-99) mg/dL Alkaline Phosphatase 155 H (38-126) U/L 08/28/21 08/28/21 08/28/21 Range/Units 07:09 08:00 09:58 WBC (4.50-10.00) X 10*3/uL RBC (4.10-5.20) X 10*6/uL Hgb (12.0-15.0) g/dL Hct (37.2-46.3) % MCHC (32.0-37.0) g/dL Immature Gran # (0.00-0.04) X 10*3/uL Lymphocytes # (0.90-5.00) X 10*3/uL Sodium (137-145) mmol/L Chloride (98-107) mmol/L BUN (7-17) mg/dL Creatinine (0.52-1.04) mg/dL Glucose (74-99) mg/dL POC Glucose (mg/dL) 204 H 198 H 133 H (75-99) mg/dL Alkaline Phosphatase (38-126) U/L 08/28/21 Range/Units 11:55 WBC (4.50-10.00) X 10*3/uL RBC (4.10-5.20) X 10*6/uL Hgb (12.0-15.0) g/dL Hct (37.2-46.3) % MCHC (32.0-37.0) g/dL Immature Gran # (0.00-0.04) X 10*3/uL Lymphocytes # (0.90-5.00) X 10*3/uL Sodium (137-145) mmol/L Chloride (98-107) mmol/L BUN (7-17) mg/dL Creatinine (0.52-1.04) mg/dL Glucose (74-99) mg/dL POC Glucose (mg/dL) 71 L (75-99) mg/dL Alkaline Phosphatase (38-126) U/L Assessment and Plan Time with Patient: Less than 30
[2021-08-28 13:32] LABS: Glucose 39 mg/dL (74-99)
[2021-08-28 13:50] LABS: Glucose,Whole Blood 99 mg/dL (75-99)
[2021-08-28 15:59] LABS: Glucose,Whole Blood 260 mg/dL (75-99)
[2021-08-28 17:58] LABS: Glucose,Whole Blood 416 mg/dL (75-99)
--- NOTE | 2021-08-28 18:07 | P.PN ---
Subjective Progress Note Date: 08/27/21 Principal diagnosis: Pneumonia Patient is a 30-year-old female with a past medical history significant for end-stage renal disease on dialysis presented to the hospital w ith a fever of left lower chest pain concerning for pneumonia. On today's evaluation that is 08/27/2021, The patient denies any fever or chills, the patient is breathing comfortably on nasal cannula oxygen, the patient is complaining of lower rib cage chest pain from coughing, however cough is decreased intensity mostly dry in nature no abdominal pain no diarrhea overall feeling better Objective - Vital Signs Vital signs: Vital Signs Temp 98.9 F 08/27/21 12:29 Pulse 81 08/27/21 12:29 Resp 16 08/27/21 12:29 BP 129/59 08/27/21 12:29 Pulse Ox 95 08/27/21 07:37 Intake & Output 08/26/21 08/27/21 08/27/21 18:59 06:59 18:59 Intake Total 73.417 Output Total 4000 Balance -3926.583 Intake: Intake, IV Titration 73.417 Amount Insulin Regular 100 unit 73.417 In Sodium Chloride 0.9% 100 ml @ Titrate IV .Q0M [facility] Rx#:[id number] Output: Hemodialysis 4000 Other: Voiding Method Diaper Toilet Toilet Incontinent Diaper Incontinent # Voids 2 - Exam GENERAL DESCRIPTION: Middle-age female lying in bed in no distress RESPIRATORY SYSTEM: Unlabored breathing , decreased breath sounds at bases HEART: S1 S2 regular rate and rhythm , ABDOMEN: Soft , no tenderness EXTREMITIES: No edema feet - Labs CBC & Chem 7: 08/28/21 04:18 08/28/21 12:37 Labs: Abnormal Lab Results - Last 24 Hours (Table) 08/24/21 08/26/21 08/26/21 Range/Units 06:56 15:29 19:56 RBC (3.80-5.40) m/uL Hgb (11.4-16.0) gm/dL Hct (34.0-46.0) % Lymphocytes # (1.0-4.8) k/uL Sodium (137-145) mmol/L Potassium (3.5-5.1) mmol/L Carbon Dioxide (22-30) mmol/L BUN (7-17) mg/dL Creatinine (0.52-1.04) mg/dL Glucose (74-99) mg/dL POC Glucose (mg/dL) 38 L 239 H (75-99) mg/dL Albumin (PEP) 3.47 L (3.80-4.90) g/dL [id number] 0.41 H (0.10-0.40) g/dL Free Calion LC, Quant 27.35 H (0.33-1.94) mg/dL Free Lambda LC, Quant 28.87 H (0.57-2.63) mg/dL 08/27/21 08/27/21 08/27/21 Range/Units 02:14 06:19 07:20 RBC 2.56 L (3.80-5.40) m/uL Hgb 7.8 L (11.4-16.0) gm/dL Hct 24.9 L (34.0-46.0) % Lymphocytes # 0.4 L (1.0-4.8) k/uL Sodium (137-145) mmol/L Potassium (3.5-5.1) mmol/L Carbon Dioxide (22-30) mmol/L BUN (7-17) mg/dL Creatinine (0.52-1.04) mg/dL Glucose (74-99) mg/dL POC Glucose (mg/dL) 270 H 579 H (75-99) mg/dL Albumin (PEP) (3.80-4.90) g/dL Foiub-7-Kmyxpqykn (0.10-0.40) g/dL Free Calion LC, Quant (0.33-1.94) mg/dL Free Lambda LC, Quant (0.57-2.63) mg/dL 08/27/21 08/27/21 08/27/21 Range/Units 07:20 07:28 08:14 RBC (3.80-5.40) m/uL Hgb (11.4-16.0) gm/dL Hct (34.0-46.0) % Lymphocytes # (1.0-4.8) k/uL Sodium 128 L (137-145) mmol/L Potassium 5.7 H (3.5-5.1) mmol/L Carbon Dioxide 14 L (22-30) mmol/L BUN 52 H (7-17) mg/dL Creatinine 8.89 H* (0.52-1.04) mg/dL Glucose 654 H* (74-99) mg/dL POC Glucose (mg/dL) >600 H 592 H (75-99) mg/dL Albumin (PEP) (3.80-4.90) g/dL Gbjlo-1-Xqnzbyyow (0.10-0.40) g/dL Free Calion LC, Quant (0.33-1.94) mg/dL Free Lambda LC, Quant (0.57-2.63) mg/dL 08/27/21 08/27/21 08/27/21 Range/Units 08:50 09:29 10:06 RBC (3.80-5.40) m/uL Hgb (11.4-16.0) gm/dL Hct (34.0-46.0) % Lymphocytes # (1.0-4.8) k/uL Sodium (137-145) mmol/L Potassium (3.5-5.1) mmol/L Carbon Dioxide (22-30) mmol/L BUN (7-17) mg/dL Creatinine (0.52-1.04) mg/dL Glucose (74-99) mg/dL POC Glucose (mg/dL) 538 H 329 H 211 H (75-99) mg/dL Albumin (PEP) (3.80-4.90) g/dL Wrztv-4-Vinnnrkou (0.10-0.40) g/dL Free Calion LC, Quant (0.33-1.94) mg/dL Free Lambda LC, Quant (0.57-2.63) mg/dL Assessment and Plan (1) Sepsis due to pneumonia Current Visit: Yes Status: Acute Code(s): J18.9 - PNEUMONIA, UNSPECIFIED ORGANISM; A41.9 - SEPSIS, UNSPECIFIED ORGANISM SNOMED Code(s): 41202701 Plan: 1patient presented to hospital with fever in this patient also have a left lower rib cage pain which is pleuritic concerning for possible pneumonia and question of possible aspiration etiology recently completed course of oral Augmentin. 2 sputum for Gram stain and culture requested but not collected, Blood culture has been negative 3 Patient seems to have clinically improved and will continue with the vancomycin pharmacy to dose through dialysis for another 10 days prescription was provided to the classification case manager working on discharge Time with Patient: Less than 30
[2021-08-28] MEDS: ENALAPRILAT 1.25 MG/ML 1 ML VIAL IVP PRN (18:08)
--- NOTE | 2021-08-28 18:08 | P.PN ---
Subjective Progress Note Date: 08/28/21 Principal diagnosis: Pneumonia Patient is a 30-year-old female with a past medical history significant for end-stage renal disease on dialysis presented to the hospital w ith a fever of left lower chest pain concerning for pneumonia. On today's evaluation that is 08/28/2021, The patient remains to be afebrile, the patient is breathing comfortably on nasal cannula oxygen, the patient did have lower rib cage chest pain from coughing, however denies any worsening cough or sputum production, no abdominal pain no diarrhea Objective - Vital Signs Vital signs: Vital Signs Temp 98.6 F 08/28/21 14:00 Pulse 73 08/28/21 14:00 Resp 18 08/28/21 14:00 BP 176/94 08/28/21 14:00 Pulse Ox 94 L 08/28/21 14:00 Intake & Output 08/27/21 08/28/21 08/28/21 18:59 06:59 18:59 Intake Total 86.208 820.1 20.217 Output Total 4000 Balance -3913.792 820.1 20.217 Intake: Intake, IV Titration 86.208 20.1 20.217 Amount Insulin Regular 100 unit 86.208 20.1 20.217 In Sodium Chloride 0.9% 100 ml @ Titrate IV .Q0M [facility] Rx#:[id number] Oral 800 Output: Hemodialysis 4000 Other: Voiding Method Toilet Toilet Toilet # Voids 4 # Bowel Movements 1 - Exam GENERAL DESCRIPTION: Middle-age female lying in bed in no distress RESPIRATORY SYSTEM: Unlabored breathing , decreased breath sounds at bases HEART: S1 S2 regular rate and rhythm , ABDOMEN: Soft , no tenderness EXTREMITIES: No edema feet - Labs CBC & Chem 7: 08/28/21 04:18 08/28/21 12:37 Labs: Abnormal Lab Results - Last 24 Hours (Table) 08/27/21 08/27/21 08/27/21 Range/Units 18:27 19:19 21:58 WBC (4.50-10.00) X 10*3/uL RBC (4.10-5.20) X 10*6/uL Hgb (12.0-15.0) g/dL Hct (37.2-46.3) % MCHC (32.0-37.0) g/dL Immature Gran # (0.00-0.04) X 10*3/uL Lymphocytes # (0.90-5.00) X 10*3/uL Sodium (137-145) mmol/L BUN (7-17) mg/dL Creatinine (0.52-1.04) mg/dL Glucose (74-99) mg/dL POC Glucose (mg/dL) 109 H 103 H 277 H (75-99) mg/dL Alkaline Phosphatase (38-126) U/L 08/27/21 08/28/21 08/28/21 Range/Units 23:05 00:23 02:10 WBC (4.50-10.00) X 10*3/uL RBC (4.10-5.20) X 10*6/uL Hgb (12.0-15.0) g/dL Hct (37.2-46.3) % MCHC (32.0-37.0) g/dL Immature Gran # (0.00-0.04) X 10*3/uL Lymphocytes # (0.90-5.00) X 10*3/uL Sodium (137-145) mmol/L BUN (7-17) mg/dL Creatinine (0.52-1.04) mg/dL Glucose (74-99) mg/dL POC Glucose (mg/dL) 238 H 137 H 187 H (75-99) mg/dL Alkaline Phosphatase (38-126) U/L 08/28/21 08/28/21 08/28/21 Range/Units 04:05 04:18 04:18 WBC 4.44 L (4.50-10.00) X 10*3/uL RBC 2.42 L (4.10-5.20) X 10*6/uL Hgb 7.0 L (12.0-15.0) g/dL Hct 22.0 L (37.2-46.3) % MCHC 31.8 L (32.0-37.0) g/dL Immature Gran # 0.08 H (0.00-0.04) X 10*3/uL Lymphocytes # 0.57 L (0.90-5.00) X 10*3/uL Sodium 136 L (137-145) mmol/L BUN 42 H (7-17) mg/dL Creatinine 6.22 H (0.52-1.04) mg/dL Glucose 148 H (74-99) mg/dL POC Glucose (mg/dL) 174 H (75-99) mg/dL Alkaline Phosphatase 155 H (38-126) U/L 08/28/21 08/28/21 08/28/21 Range/Units 06:05 07:09 08:00 WBC (4.50-10.00) X 10*3/uL RBC (4.10-5.20) X 10*6/uL Hgb (12.0-15.0) g/dL Hct (37.2-46.3) % MCHC (32.0-37.0) g/dL Immature Gran # (0.00-0.04) X 10*3/uL Lymphocytes # (0.90-5.00) X 10*3/uL Sodium (137-145) mmol/L BUN (7-17) mg/dL Creatinine (0.52-1.04) mg/dL Glucose (74-99) mg/dL POC Glucose (mg/dL) 71 L 204 H 198 H (75-99) mg/dL Alkaline Phosphatase (38-126) U/L 08/28/21 08/28/21 08/28/21 Range/Units 09:58 11:55 12:37 WBC (4.50-10.00) X 10*3/uL RBC (4.10-5.20) X 10*6/uL Hgb (12.0-15.0) g/dL Hct (37.2-46.3) % MCHC (32.0-37.0) g/dL Immature Gran # (0.00-0.04) X 10*3/uL Lymphocytes # (0.90-5.00) X 10*3/uL Sodium (137-145) mmol/L BUN 51 H (7-17) mg/dL Creatinine 6.99 H (0.52-1.04) mg/dL Glucose 39 L* (74-99) mg/dL POC Glucose (mg/dL) 133 H 71 L (75-99) mg/dL Alkaline Phosphatase (38-126) U/L 08/28/21 08/28/21 Range/Units 15:57 17:57 WBC (4.50-10.00) X 10*3/uL RBC (4.10-5.20) X 10*6/uL Hgb (12.0-15.0) g/dL Hct (37.2-46.3) % MCHC (32.0-37.0) g/dL Immature Gran # (0.00-0.04) X 10*3/uL Lymphocytes # (0.90-5.00) X 10*3/uL Sodium (137-145) mmol/L BUN (7-17) mg/dL Creatinine (0.52-1.04) mg/dL Glucose (74-99) mg/dL POC Glucose (mg/dL) 260 H 416 H (75-99) mg/dL Alkaline Phosphatase (38-126) U/L Assessment and Plan (1) Sepsis due to pneumonia Current Visit: Yes Status: Acute Code(s): J18.9 - PNEUMONIA, UNSPECIFIED ORGANISM; A41.9 - SEPSIS, UNSPECIFIED ORGANISM SNOMED Code(s): 55137245 Plan: 1patient presented to hospital with fever in this patient also have a left lower rib cage pain which is pleuritic concerning for possible pneumonia and question of possible aspiration etiology recently completed course of oral Augmentin. 2 sputum for Gram stain and culture requested but not collected, Blood culture has been negative 3 Patient has clinically improved and plan is to continue with the vancomycin pharmacy to dose through dialysis for another 10 days on discharge Time with Patient: Less than 30
[2021-08-28 20:47] LABS: Glucose,Whole Blood 201 mg/dL (75-99)
[2021-08-28] MEDS: ISOSORBIDE MONONITRATE ER 30 MG TAB.ER.24H PO SCH (20:53)
[2021-08-28] MEDS: INSULIN DETEMIR (LEVEMIR) 100 UNIT/ML SYR SQ SCH (20:53)
[2021-08-28] MEDS: MELATONIN 5 MG TABLET PO PRN (20:53)
[2021-08-28 22:52] LABS: Glucose,Whole Blood 67 mg/dL (75-99)
[2021-08-28 23:15] LABS: Glucose,Whole Blood 77 mg/dL (75-99)
[2021-08-29] MEDS: BENZONATATE 100 MG CAP PO PRN ×2 (01:07→18:59)
[2021-08-29] MEDS: LORazepam 2 MG/ML INJ IV PRN ×3 (01:16→21:51)
[2021-08-29 01:59] LABS: Glucose,Whole Blood 113 mg/dL (75-99)
[2021-08-29] MEDS: ENALAPRILAT 1.25 MG/ML 1 ML VIAL IVP PRN ×2 (02:06→21:47)
[2021-08-29] MEDS: HYDROmorphone 0.5 MG/0.5 ML SYRINGE IVP PRN ×6 (03:14→21:51)
[2021-08-29] MEDS ORDERED: cloNIDine HCL 0.1 MG TAB PO ONE (06:01)
[2021-08-29 06:24] LABS: Glucose,Whole Blood 78 mg/dL (75-99)
[2021-08-29 07:07] LABS: African American GFR (CKD) 7 (>60 ml/min/1.73 sqM); Anion Gap 12 mmol/L; Blood Urea Nitrogen 66 mg/dL (7-17); Calcium 8.5 mg/dL (8.4-10.2); Carbon Dioxide 23 mmol/L (22-30); Chloride 92 mmol/L (98-107); Glucose 61 mg/dL (74-99); Non-African American GFR(CKD) 6 (>60 ml/min/1.73 sqM); Sodium 127 mmol/L (137-145)
[2021-08-29] MEDS: INSULIN ASPART (NovoLOG) 100 UNIT/ML VIAL SQ SCH ×7 (07:20→21:48)
[2021-08-29] MEDS: ERGOCALCIFEROL 1,250 MCG (50,000 IU) CAPSULE PO SCH (08:38)
[2021-08-29] MEDS: ACETAMINOPHEN TAB 325 MG TAB PO PRN (08:39)
[2021-08-29] MEDS: CYANOCOBALAMIN 500 MCG TAB PO SCH (08:40)
[2021-08-29] MEDS: ASPIRIN 81 MG PO SCH (08:40)
[2021-08-29] MEDS: cloNIDine HCL 0.1 MG TAB PO SCH ×3 (08:41→21:34)
[2021-08-29] MEDS: ESCITALOPRAM 20 MG TAB PO SCH (08:41)
[2021-08-29] MEDS: SEVELAMER 800 MG TAB PO SCH ×3 (08:41→17:03)
[2021-08-29] MEDS: HEPARIN SODIUM,PORCINE/PF 5,000 UNIT/0.5 ML SYRINGE SQ SCH ×3 (08:41→21:59)
[2021-08-29] MEDS: carvediloL 12.5 MG TAB PO SCH ×2 (08:41→17:03)
[2021-08-29] MEDS: lisinopriL 20 MG TAB PO SCH (08:41)
[2021-08-29] MEDS: PANTOPRAZOLE 40 MG TABLET PO SCH ×2 (08:42→21:48)
[2021-08-29 10:40] LABS: Basophils # (A) 0.01 X 10*3/uL (0.00-0.10); Basophils % (A) 0.2 %; Eosinophils # (A) 0.28 X 10*3/uL (0.04-0.35); Eosinophils % (A) 6.3 %; Immature Grans, Automated 0.7 %; Lymphocytes # (A) 0.63 X 10*3/uL (0.90-5.00); Lymphocytes % (A) 14.1 %; Monocytes # (A) 0.38 X 10*3/uL (0.20-1.00); Monocytes % (A) 8.5 %; NRBC Per 100 WBC 0 /100 WBCS (0.0-0.0); Neutrophils # (A) 3.13 X 10*3/uL (1.80-7.70); Neutrophils % (A) 70.2 %
[2021-08-29 10:41] LABS: HCT 18.9 % (37.2-46.3); HGB 6.1 g/dL (12.0-15.0); MCHC 32.3 g/dL (32.0-37.0); Mean Platelet Volume 11.2 fL (9.5-12.2); Platelet Count 181 X 10*3/uL (140-440); RDW 14.8 % (11.5-14.5); WBC 4.46 X 10*3/uL (4.50-10.00)
[2021-08-29 11:24] LABS: Glucose,Whole Blood 269 mg/dL (75-99)
--- NOTE | 2021-08-29 12:09 | P.PN ---
Subjective Patient is seen for follow-up for end-stage renal disease. She was admitted to the hospital with fever and cough and has been treated for pneumonia. She has also had volume overload with uncontrolled blood pressures which improved with dialysis and ultrafiltration. Blood sugars have been difficult to control and patient had been maintained on insulin drip. Last night patient's blood pressure shot up to 200 systolic. She states she has been coughing and her chest feels significantly sore with all the cough. Patient has had epistaxis. Blood is noted on her pillow. She denies any significant shortness of breath. Potassium was noted to be 6.0 today Objective - Vital Signs Vital signs: Vital Signs Temp 101.1 F H 08/29/21 08:00 Pulse 79 08/29/21 08:00 Resp 16 08/29/21 08:00 BP 165/84 08/29/21 08:00 Pulse Ox 94 L 08/29/21 08:00 Intake & Output 08/28/21 08/29/21 08/29/21 18:59 06:59 18:59 Intake Total 20.217 Balance 20.217 Intake: Intake, IV Titration 20.217 Amount Insulin Regular 100 unit 20.217 In Sodium Chloride 0.9% 100 ml @ Titrate IV .Q0M [facility] Rx#:[id number] Other: Voiding Method Toilet Toilet Toilet # Voids 2 1 # Bowel Movements 1 - Exam Awake, comfortable, not in any acute distress Examination of the heart S1 and S2 Examination lungs bilateral breath sounds are heard Abdomen is soft Examination lower extremities shows no significant edema [employer] exam grossly intact - Labs CBC & Chem 7: 08/29/21 06:02 08/29/21 06:02 Labs: Abnormal Lab Results - Last 24 Hours (Table) 08/28/21 08/28/21 08/28/21 Range/Units 12:37 15:57 17:57 WBC (4.50-10.00) X 10*3/uL RBC (4.10-5.20) X 10*6/uL Hgb (12.0-15.0) g/dL Hct (37.2-46.3) % RDW (11.5-14.5) % Lymphocytes # (0.90-5.00) X 10*3/uL Sodium (137-145) mmol/L Potassium (3.5-5.1) mmol/L Chloride (98-107) mmol/L BUN 51 H (7-17) mg/dL Creatinine 6.99 H (0.52-1.04) mg/dL Glucose 39 L* (74-99) mg/dL POC Glucose (mg/dL) 260 H 416 H (75-99) mg/dL Crossmatch 08/28/21 08/28/21 08/29/21 Range/Units 20:34 22:38 01:57 WBC (4.50-10.00) X 10*3/uL RBC (4.10-5.20) X 10*6/uL Hgb (12.0-15.0) g/dL Hct (37.2-46.3) % RDW (11.5-14.5) % Lymphocytes # (0.90-5.00) X 10*3/uL Sodium (137-145) mmol/L Potassium (3.5-5.1) mmol/L Chloride (98-107) mmol/L BUN (7-17) mg/dL Creatinine (0.52-1.04) mg/dL Glucose (74-99) mg/dL POC Glucose (mg/dL) 201 H 67 L 113 H (75-99) mg/dL Crossmatch 08/29/21 08/29/21 08/29/21 Range/Units 06:02 06:02 11:01 WBC 4.46 L (4.50-10.00) X 10*3/uL RBC 2.10 L (4.10-5.20) X 10*6/uL Hgb 6.1 L* (12.0-15.0) g/dL Hct 18.9 L* (37.2-46.3) % RDW 14.8 H (11.5-14.5) % Lymphocytes # 0.63 L (0.90-5.00) X 10*3/uL Sodium 127 L (137-145) mmol/L Potassium 6.0 H (3.5-5.1) mmol/L Chloride 92 L (98-107) mmol/L BUN 66 H (7-17) mg/dL Creatinine 8.41 H* (0.52-1.04) mg/dL Glucose 61 L (74-99) mg/dL POC Glucose (mg/dL) (75-99) mg/dL Crossmatch See Detail 08/29/21 Range/Units 11:23 WBC (4.50-10.00) X 10*3/uL RBC (4.10-5.20) X 10*6/uL Hgb (12.0-15.0) g/dL Hct (37.2-46.3) % RDW (11.5-14.5) % Lymphocytes # (0.90-5.00) X 10*3/uL Sodium (137-145) mmol/L Potassium (3.5-5.1) mmol/L Chloride (98-107) mmol/L BUN (7-17) mg/dL Creatinine (0.52-1.04) mg/dL Glucose (74-99) mg/dL POC Glucose (mg/dL) 269 H (75-99) mg/dL Crossmatch Assessment and Plan Assessment: 1. End-stage renal disease on hemodialysis on a Monday schedule 2. Fluid overload, improved 3. Left lower lobe pneumonia 4. Recent hospitalization for fluid overload with large pericardial effusion status post aggressive ultrafiltration of about 12 L during her stay. Antihistone antibodies were positive these are associated with use of minoxidil and hydralazine causing pericardial effusion/pericarditis. However the pericardial effusion was much smaller on the CT and I planned to continue with h ydralazine but ECHO report from yesterday shows moderate sized pericardial effusion again. Therefore hydralazine was discontinued 5. Hypertension partly volume sensitive improves with aggressive ult rafiltration. Will d/c hydralazine 6. Anemia, no active bleeding noted status post packed RBCs transfusion, maintained on Aranesp, 7. Uncontrolled blood sugars, currently on insulin drip and much improved. 8. Hyperkalemia, associated with end-stage renal disease as well as recent increase in the dose of CHANDA inhibitor's due to uncontrolled hypertension. Plan: Hemodialysis today with goal ultrafiltration of about 3 L Repeat hemodialysis again in a.m. Consider adjustment of antibiotics as patient has a fever again
[2021-08-29] MEDS: diphenhydrAMINE 25 MG CAP PO PRN (13:54)
[2021-08-29] MEDS ORDERED: diphenhydrAMINE 50 MG/ML 1 ML VIAL IVP ONE (14:12)
[2021-08-29] MEDS ORDERED: OXYMETAZOLINE 0.05% NASL SPRAY 1 SPRAY BOTTLE NASAL STA (14:13)
[2021-08-29] MEDS ORDERED: guaiFENesin SYRUP 100MG/5ML 200 MG/10 ML CUP PO PRN (14:15)
--- NOTE | 2021-08-29 14:17 | P.PN ---
Subjective Progress Note Date: 08/29/21 08/27/2021 Patient evaluated today during hemodialysis. Continues with persistent cough, which has been nonproductive. Continues on 2 L nasal cannula can wean as tolerated. Patient is afebrile, no acute events overnight. Blood sugars continued extreme highs and lows, patient was started back on insulin drip, was acetone positive, blood sugar in the 600s, currently anion gap 14. We will repeat labs if gap has closed we will transition patient to subcutaneous insulin. Echocardiogram was done yesterday which shows EF 55-60% with moderate to severe tricuspid regurg, trace mitral regurg, severe pulmonary hypertension and a moderate generalized pericardial effusion. Once medically stable at [facility] patient will continue with vancomycin for 2 weeks during dialysis recommended by ID. 08/28/2021 Patient evaluated today resting in bed. Hydralazine was discontinued as echo redemonstrated pericardial effusion. Sugars have been better controlled as patient continues on the insulin gtt. Pending repeat anion gap, once closed will transition patient. She states overall she is feeling better as her sugars have not been having extreme highs and lows and her blood pressure has been more controlled in the last 24 hours. Cough is slightly better today still non productive. Discussed keeping patient on gtt until anion gap is less than 10, will transition and monitor sugars and should be able to DC home. 08/29/2021 Blood pressure elevated into the 200s yesterday evening, has trended down some. Continues off hydralazine. labs today showing potassium of 6.0, sodium 127, creatinine 8.41, patient will undergo dialysis today. Patient was transitioned off the insulin gtt yesterday receieved 14 of levemir last night and short acting meal time coverage. Sugars have ranged from 77 to 269 today. Still with harsh non pruductive cough states that her lungs are quit sore from coughing. hgb today 6.1, 1 unit PRBC's will be transfused with dialysis. Patient is having a nose bleed with some clots, states this happens when her blood pressure is elevated. Ordered a one time dose of Afrin if nose bleed continues. Spiked temp of 101.1. Discussed IS patient agreeable to use. Review of Systems Constitutional: Denied any fatigue denied any fever. Nose bleed. Cardio vascular: denied any chest pain, palpitations Gastrointestinal: denied any nausea, vomiting, diarrhea Pulmonary: Denies shortness of breath, reports dry persistant cough Neurologic denied any new focal deficits All inpatient medications were reviewed and appropriate changes in these medications as dictated in the interval history and assessment and plan. PHYSICAL EXAMINATION: GENERAL: The patient is alert and oriented x3, ill appearing, fatigued. Pale. HEENT: Pupils are round and equally reacting to light. EOMI. No scleral icterus. No conjunctival pallor. Normocephalic, atraumatic. No pharyngeal erythema. No thyromegaly. CARDIOVASCULAR: S1 and S2 muffled PULMONARY: Chest is diminished bilaterally, no wheezing, crackles noted. ABDOMEN: Soft, nontender, nondistended, normoactive bowel sounds. No palpable organomegaly. dry cough on exam MUSCULOSKELETAL: No joint swelling or deformity. EXTREMITIES: No cyanosis, clubbing, or pedal edema. NEUROLOGICAL: Gross neurological examination did not reveal any focal deficits. SKIN: No rashes. Assessment: -Sepsis: Secondary to bilateral interstitial multifocal pneumonia, possibly gram negative, continues on antibiotics -End-stage renal disease, hemodialysis dependent monday -Hyponatremia secondary to chronic kidney disease -Hyperkalemia secondary to chronic renal disease -Anemia, chronic -Type 1 diabetes mellitus, uncontrolled with hyperglycemia as well as hypoglycemia, brittle -Pericardial effusion -Pleuritic chest pain and a parapneumonic effusion -Hypertension secondary to renal disease -Depression -DVT prophylaxis: subcutaneous heparin -GI prophylaxis -Full Code Plan Pt to receive 1 unit PRBC with dialysis today Continue on current insulin regimine Hemodialysis today Continue all other supportive care Recheck labs in AM Ordered IS Prognosis guarded The impression and plan of care has been dictated by Jael Keane, Nurse Practitioner as directed. Dr. Sudeep MD I have performed a history and physical examination and medical decision making of this patient, discussed the same with the dictator, and agree with the dictators assessment and plan as written, documented as a scribe. Based on total visit time, I have performed more than 50% of this visit. Objective - Vital Signs Vital signs: Vital Signs Temp 101.1 F H 08/29/21 08:00 Pulse 79 08/29/21 08:00 Resp 16 08/29/21 08:00 BP 165/84 08/29/21 08:00 Pulse Ox 94 L 08/29/21 08:00 Intake & Output 0408/29/21 08/29/21 18:59 06:59 18:59 Intake Total 20.217 Balance 20.217 Intake: Intake, IV Titration 20.217 Amount Insulin Regular 100 unit 20.217 In Sodium Chloride 0.9% 100 ml @ Titrate IV .Q0M [facility] Rx#:[id number] Other: Voiding Method Toilet Toilet Toilet # Voids 2 1 # Bowel Movements 1 - Labs CBC & Chem 7: 08/29/21 06:02 08/29/21 06:02 Labs: Abnormal Lab Results - Last 24 Hours (Table) 08/28/21 08/28/21 08/28/21 Range/Units 15:57 17:57 20:34 WBC (4.50-10.00) X 10*3/uL RBC (4.10-5.20) X 10*6/uL Hgb (12.0-15.0) g/dL Hct (37.2-46.3) % RDW (11.5-14.5) % Lymphocytes # (0.90-5.00) X 10*3/uL Sodium (137-145) mmol/L Potassium (3.5-5.1) mmol/L Chloride (98-107) mmol/L BUN (7-17) mg/dL Creatinine (0.52-1.04) mg/dL Glucose (74-99) mg/dL POC Glucose (mg/dL) 260 H 416 H 201 H (75-99) mg/dL Crossmatch 08/28/21 08/29/21 08/29/21 Range/Units 22:38 01:57 06:02 WBC (4.50-10.00) X 10*3/uL RBC (4.10-5.20) X 10*6/uL Hgb (12.0-15.0) g/dL Hct (37.2-46.3) % RDW (11.5-14.5) % Lymphocytes # (0.90-5.00) X 10*3/uL Sodium 127 L (137-145) mmol/L Potassium 6.0 H (3.5-5.1) mmol/L Chloride 92 L (98-107) mmol/L BUN 66 H (7-17) mg/dL Creatinine 8.41 H* (0.52-1.04) mg/dL Glucose 61 L (74-99) mg/dL POC Glucose (mg/dL) 67 L 113 H (75-99) mg/dL Crossmatch 08/29/21 08/29/21 08/29/21 Range/Units 06:02 11:01 11:23 WBC 4.46 L (4.50-10.00) X 10*3/uL RBC 2.10 L (4.10-5.20) X 10*6/uL Hgb 6.1 L* (12.0-15.0) g/dL Hct 18.9 L* (37.2-46.3) % RDW 14.8 H (11.5-14.5) % Lymphocytes # 0.63 L (0.90-5.00) X 10*3/uL Sodium (137-145) mmol/L Potassium (3.5-5.1) mmol/L Chloride (98-107) mmol/L BUN (7-17) mg/dL Creatinine (0.52-1.04) mg/dL Glucose (74-99) mg/dL POC Glucose (mg/dL) 269 H (75-99) mg/dL Crossmatch See Detail Assessment and Plan Time with Patient: Less than 30
[2021-08-29 16:03] LABS: Glucose,Whole Blood 78 mg/dL (75-99)
--- NOTE | 2021-08-29 16:39 | P.PN ---
Subjective Progress Note Date: 08/29/21 Principal diagnosis: Pneumonia Patient is a 30-year-old female with a past medical history significant for end-stage renal disease on dialysis presented to the hospital w ith a fever of left lower chest pain concerning for pneumonia. On today's evaluation that is 08/29/2021, The patient continues to be afebrile, the patient is breathing comfortably on nasal cannula oxygen, the patient still complaining of chest pain and cough but not bringing up any sputum, the patient denies nausea vomiting, no abdominal pain no diarrhea Objective - Vital Signs Vital signs: Vital Signs Temp 101.1 F H 08/29/21 08:00 Pulse 79 08/29/21 08:00 Resp 16 08/29/21 08:00 BP 165/84 08/29/21 08:00 Pulse Ox 94 L 08/29/21 08:00 Intake & Output 08/28/21 08/29/21 08/29/21 18:59 06:59 18:59 Intake Total 20.217 Balance 20.217 Intake: Intake, IV Titration 20.217 Amount Insulin Regular 100 unit 20.217 In Sodium Chloride 0.9% 100 ml @ Titrate IV .Q0M [facility] Rx#:[id number] Other: Voiding Method Toilet Toilet Toilet # Voids 2 1 # Bowel Movements 1 - Exam GENERAL DESCRIPTION: Middle-age female lying in bed in no distress RESPIRATORY SYSTEM: Unlabored breathing , decreased breath sounds at bases HEART: S1 S2 regular rate and rhythm , ABDOMEN: Soft , no tenderness EXTREMITIES: No edema feet - Labs CBC & Chem 7: 08/29/21 06:02 08/29/21 06:02 Labs: Abnormal Lab Results - Last 24 Hours (Table) 08/28/21 08/28/21 08/28/21 Range/Units 15:57 17:57 20:34 WBC (4.50-10.00) X 10*3/uL RBC (4.10-5.20) X 10*6/uL Hgb (12.0-15.0) g/dL Hct (37.2-46.3) % RDW (11.5-14.5) % Lymphocytes # (0.90-5.00) X 10*3/uL Sodium (137-145) mmol/L Potassium (3.5-5.1) mmol/L Chloride (98-107) mmol/L BUN (7-17) mg/dL Creatinine (0.52-1.04) mg/dL Glucose (74-99) mg/dL POC Glucose (mg/dL) 260 H 416 H 201 H (75-99) mg/dL Crossmatch 08/28/21 08/29/21 08/29/21 Range/Units 22:38 01:57 06:02 WBC (4.50-10.00) X 10*3/uL RBC (4.10-5.20) X 10*6/uL Hgb (12.0-15.0) g/dL Hct (37.2-46.3) % RDW (11.5-14.5) % Lymphocytes # (0.90-5.00) X 10*3/uL Sodium 127 L (137-145) mmol/L Potassium 6.0 H (3.5-5.1) mmol/L Chloride 92 L (98-107) mmol/L BUN 66 H (7-17) mg/dL Creatinine 8.41 H* (0.52-1.04) mg/dL Glucose 61 L (74-99) mg/dL POC Glucose (mg/dL) 67 L 113 H (75-99) mg/dL Crossmatch 08/29/21 08/29/21 08/29/21 Range/Units 06:02 11:01 11:23 WBC 4.46 L (4.50-10.00) X 10*3/uL RBC 2.10 L (4.10-5.20) X 10*6/uL Hgb 6.1 L* (12.0-15.0) g/dL Hct 18.9 L* (37.2-46.3) % RDW 14.8 H (11.5-14.5) % Lymphocytes # 0.63 L (0.90-5.00) X 10*3/uL Sodium (137-145) mmol/L Potassium (3.5-5.1) mmol/L Chloride (98-107) mmol/L BUN (7-17) mg/dL Creatinine (0.52-1.04) mg/dL Glucose (74-99) mg/dL POC Glucose (mg/dL) 269 H (75-99) mg/dL Crossmatch See Detail Assessment and Plan (1) Sepsis due to pneumonia Current Visit: Yes Status: Acute Code(s): J18.9 - PNEUMONIA, UNSPECIFIED ORGANISM; A41.9 - SEPSIS, UNSPECIFIED ORGANISM SNOMED Code(s): 19861249 Plan: 1patient presented to hospital with fever in this patient also have a left lower rib cage pain which is pleuritic concerning for possible pneumonia and question of possible aspiration etiology recently completed course of oral Au gmentin. 2 sputum for Gram stain and culture requested but not collected, Blood culture has been negative 3 Patient seemed to have clinically improved with resolution of fever, patient to continue with the vancomycin pharmacy to dose through dialysis for another 7 days on discharge Time with Patient: Less than 30
[2021-08-29] MEDS: HYDROcodone/APAP 5-325MG 1 EACH TAB PO PRN (18:59)
[2021-08-29 21:00] LABS: Glucose,Whole Blood 304 mg/dL (75-99)
[2021-08-29] MEDS: ISOSORBIDE MONONITRATE ER 30 MG TAB.ER.24H PO SCH (21:34)
[2021-08-29] MEDS: INSULIN DETEMIR (LEVEMIR) 100 UNIT/ML SYR SQ SCH (22:05)
[2021-08-30] MEDS: BENZOCAINE/MENTHOL LOZENG 1 EACH LOZENGE MUCOUS MEM PRN (01:59)
[2021-08-30] MEDS: HYDROmorphone 0.5 MG/0.5 ML SYRINGE IVP PRN ×6 (02:00→21:47)
[2021-08-30 03:21] LABS: Glucose,Whole Blood 52 mg/dL (75-99)
[2021-08-30] MEDS ORDERED: DEXTROSE 50% SYRINGE 50 ML IVP ONE ×2 (03:39→06:39)
[2021-08-30 03:47] LABS: Glucose,Whole Blood 46 mg/dL (75-99)
[2021-08-30] MEDS: LORazepam 2 MG/ML INJ IV PRN ×3 (04:02→20:43)
[2021-08-30 04:03] LABS: Glucose,Whole Blood 132 mg/dL (75-99)
[2021-08-30] MEDS: ENALAPRILAT 1.25 MG/ML 1 ML VIAL IVP PRN ×2 (04:03→16:28)
[2021-08-30 06:28] LABS: Glucose,Whole Blood 35 mg/dL (75-99)
[2021-08-30 06:39] LABS: Glucose,Whole Blood 40 mg/dL (75-99)
[2021-08-30 06:47] LABS: Glucose,Whole Blood 265 mg/dL (75-99)
[2021-08-30 07:10] LABS: African American GFR (CKD) 9 (>60 ml/min/1.73 sqM); Non-African American GFR(CKD) 8 (>60 ml/min/1.73 sqM)
[2021-08-30] MEDS: INSULIN ASPART (NovoLOG) 100 UNIT/ML VIAL SQ SCH ×5 (07:29→20:51)
[2021-08-30] MEDS: diphenhydrAMINE 25 MG CAP PO PRN ×2 (08:07→15:40)
[2021-08-30 08:46] LABS: Vancomycin,Random 21.8 ug/mL
[2021-08-30 08:48] LABS: Basophils # (A) 0.01 X 10*3/uL (0.00-0.10); Basophils % (A) 0.3 %; Eosinophils % (A) 6.3 %; HCT 23.3 % (37.2-46.3); HGB 7.7 g/dL (12.0-15.0); Immature Grans, Automated 0.9 %; Lymphocytes # (A) 0.35 X 10*3/uL (0.90-5.00); MCH 28.9 pg (27.0-32.0); MCV 87.6 fL (80.0-97.0); Mean Platelet Volume 10.9 fL (9.5-12.2); Monocytes # (A) 0.26 X 10*3/uL (0.20-1.00); Monocytes % (A) 8.2 %; NRBC Per 100 WBC 0 /100 WBCS (0.0-0.0); Neutrophils # (A) 2.34 X 10*3/uL (1.80-7.70); Neutrophils % (A) 73.3 %; Platelet Count 164 X 10*3/uL (140-440); RBC 2.66 X 10*6/uL (4.10-5.20); RDW 14.8 % (11.5-14.5); WBC 3.19 X 10*3/uL (4.50-10.00)
[2021-08-30] MEDS ORDERED: diphenhydrAMINE 50 MG/ML 1 ML VIAL IVP PRN (09:16)
[2021-08-30 10:12] LABS: Anion Gap 13 mmol/L; Blood Urea Nitrogen 45 mg/dL (7-17); Calcium 8.5 mg/dL (8.4-10.2); Carbon Dioxide 24 mmol/L (22-30); Chloride 96 mmol/L (98-107); Potassium 4.4 mmol/L (3.5-5.1); Sodium 133 mmol/L (137-145)
[2021-08-30] MEDS: CYANOCOBALAMIN 500 MCG TAB PO SCH (10:18)
[2021-08-30] MEDS: ASPIRIN 81 MG PO SCH (10:18)
[2021-08-30] MEDS: PANTOPRAZOLE 40 MG TABLET PO SCH ×2 (10:18→20:44)
[2021-08-30] MEDS: cloNIDine HCL 0.1 MG TAB PO SCH ×3 (10:18→20:43)
[2021-08-30] MEDS: lisinopriL 20 MG TAB PO SCH (10:18)
[2021-08-30] MEDS: carvediloL 12.5 MG TAB PO SCH ×2 (10:19→17:35)
[2021-08-30] MEDS: ESCITALOPRAM 20 MG TAB PO SCH (10:19)
[2021-08-30 10:20] LABS: Glucose,Whole Blood 122 mg/dL (75-99)
[2021-08-30] MEDS: HEPARIN SODIUM,PORCINE/PF 5,000 UNIT/0.5 ML SYRINGE SQ SCH ×2 (10:20→20:43)
[2021-08-30] MEDS: SEVELAMER 800 MG TAB PO SCH ×3 (10:23→17:35)
[2021-08-30 10:28] LABS: Glucose 35 mg/dL (74-99)
[2021-08-30 11:53] LABS: Glucose,Whole Blood 211 mg/dL (75-99)
--- NOTE | 2021-08-30 13:33 | P.PN ---
Subjective Progress Note Date: 08/30/21 08/27/2021 Patient evaluated today during hemodialysis. Continues with persistent cough, which has been nonproductive. Continues on 2 L nasal cannula can wean as tolerated. Patient is afebrile, no acute events overnight. Blood sugars continued extreme highs and lows, patient was started back on insulin drip, was acetone positive, blood sugar in the 600s, currently anion gap 14. We will repeat labs if gap has closed we will transition patient to subcutaneous insulin. Echocardiogram was done yesterday which shows EF 55-60% with moderate to severe tricuspid regurg, trace mitral regurg, severe pulmonary hypertension and a moderate generalized pericardial effusion. Once medically stable at [facility] patient will continue with vancomycin for 2 weeks during dialysis recommended by ID. 08/28/2021 Patient evaluated today resting in bed. Hydralazine was discontinued as echo redemonstrated pericardial effusion. Sugars have been better controlled as patient continues on the insulin gtt. Pending repeat anion gap, once closed will transition patient. She states overall she is feeling better as her sugars have not been having extreme highs and lows and her blood pressure has been more controlled in the last 24 hours. Cough is slightly better today still non productive. Discussed keeping patient on gtt until anion gap is less than 10, will transition and monitor sugars and should be able to DC home. 08/29/2021 Blood pressure elevated into the 200s yesterday evening, has trended down some. Continues off hydralazine. labs today showing potassium of 6.0, sodium 127, creatinine 8.41, patient will undergo dialysis today. Patient was transitioned off the insulin gtt yesterday receieved 14 of levemir last night and short acting meal time coverage. Sugars have ranged from 77 to 269 today. Still with harsh non pruductive cough states that her lungs are quit sore from coughing. hgb today 6.1, 1 unit PRBC's will be transfused with dialysis. Patient is having a nose bleed with some clots, states this happens when her blood pressure is elevated. Ordered a one time dose of Afrin if nose bleed continues. Spiked temp of 101.1. Discussed IS patient agreeable to use. 08/30/2021 Evaluated during dialysis today. Blood sugar dropped into the 30s this morning, decreased levemir to 10 units HS and stopped the scheduled insulin, continue with scale as needed. Hemoglobin today 7.7 s/p 1 unit prbc and per patient nosebleed has stopped. Labs are better today as well, sodium 133, potassium 4.4, bun 45, creat 6.57. No more temps, cough seems improved today. Continues on IV vanco with dialysis and will continue for another 7 days after discharge. Hopefully should be able to DC tomorrow which patient agreeable with. Review of Systems Constitutional: Denied any fatigue denied any fever. Nose bleed. Cardio vascular: denied any chest pain, palpitations Gastrointestinal: denied any nausea, vomiting, diarrhea Pulmonary: Denies shortness of breath, reports dry persistant cough Neurologic denied any new focal deficits All inpatient medications were reviewed and appropriate changes in these medications as dictated in the interval history and assessment and plan. PHYSICAL EXAMINATION: GENERAL: The patient is alert and oriented x3, ill appearing, fatigued. Pale. HEENT: Pupils are round and equally reacting to light. EOMI. No scleral icterus. No conjunctival pallor. Normocephalic, atraumatic. No pharyngeal erythema. No thyromegaly. CARDIOVASCULAR: S1 and S2 muffled PULMONARY: Chest is diminished bilaterally, no wheezing, crackles noted. ABDOMEN: Soft, nontender, nondistended, normoactive bowel sounds. No palpable organomegaly. dry cough on exam MUSCULOSKELETAL: No joint swelling or deformity. EXTREMITIES: No cyanosis, clubbing, or pedal edema. NEUROLOGICAL: Gross neurological examination did not reveal any focal deficits. SKIN: No rashes. Assessment: -Sepsis: Secondary to bilateral interstitial multifocal pneumonia, possibly gram negative, continues on antibiotics -End-stage renal disease, hemodialysis dependent monday -Hyponatremia secondary to chronic kidney disease -Hyperkalemia secondary to chronic renal disease -Anemia, chronic -Type 1 diabetes mellitus, uncontrolled with hyperglycemia as well as hypogly cemia, brittle -Pericardial effusion -Pleuritic chest pain and a parapneumonic effusion -Hypertension secondary to renal disease -Depression -DVT prophylaxis: subcutaneous heparin -GI prophylaxis -Full Code Plan Decrease levemir to 10 units HS Continue all other supportive care Ordered IS Prognosis guarded Discharge in the next 24 to 48 hours Will need IV vanco for 7 more days after discharge per ID recs. The impression and plan of care has been dictated by Jael Keane, Nurse Practitioner as directed. Dr. Sudeep MD I have performed a history and physical examination and medical decision making of this patient, discussed the same with the dictator, and agree with the dictators assessment and plan as written, documented as a scribe. Based on total visit time, I have performed more than 50% of this visit. Objective - Vital Signs Vital signs: Vital Signs Temp 98.1 F 08/30/21 03:15 Pulse 66 08/30/21 03:15 Resp 18 08/30/21 03:15 BP 171/89 08/30/21 06:06 Pulse Ox 97 08/30/21 03:15 Intake & Output 08/29/21 08/30/21 08/30/21 18:59 06:59 18:59 Intake Total 1355 Output Total 3300 Balance -1945 Intake: Oral 275 Blood Product 280 Rc Pheresis 2 As3 Unit 280 [id number] Hemodialysis 800 Output: Hemodialysis 3300 Other: Voiding Method Toilet Toilet # Voids 0 - Labs CBC & Chem 7: 08/30/21 05:33 08/30/21 05:33 Labs: Abnormal Lab Results - Last 24 Hours (Table) 08/29/21 08/29/21 08/29/21 Range/Units 11:01 11:23 20:47 WBC (4.50-10.00) X 10*3/uL RBC (4.10-5.20) X 10*6/uL Hgb (12.0-15.0) g/dL Hct (37.2-46.3) % RDW (11.5-14.5) % Lymphocytes # (0.90-5.00) X 10*3/uL Sodium (137-145) mmol/L Chloride (98-107) mmol/L BUN (7-17) mg/dL Creatinine (0.52-1.04) mg/dL Glucose (74-99) mg/dL POC Glucose (mg/dL) 269 H 304 H (75-99) mg/dL Crossmatch See Detail 08/30/21 08/30/21 08/30/21 Range/Units 03:10 03:35 04:01 WBC (4.50-10.00) X 10*3/uL RBC (4.10-5.20) X 10*6/uL Hgb (12.0-15.0) g/dL Hct (37.2-46.3) % RDW (11.5-14.5) % Lymphocytes # (0.90-5.00) X 10*3/uL Sodium (137-145) mmol/L Chloride (98-107) mmol/L BUN (7-17) mg/dL Creatinine (0.52-1.04) mg/dL Glucose (74-99) mg/dL POC Glucose (mg/dL) 52 L 46 L 132 H (75-99) mg/dL Crossmatch 08/30/21 08/30/21 08/30/21 Range/Units 05:33 05:33 06:27 WBC 3.19 L (4.50-10.00) X 10*3/uL RBC 2.66 L (4.10-5.20) X 10*6/uL Hgb 7.7 L (12.0-15.0) g/dL Hct 23.3 L (37.2-46.3) % RDW 14.8 H (11.5-14.5) % Lymphocytes # 0.35 L (0.90-5.00) X 10*3/uL Sodium 133 L (137-145) mmol/L Chloride 96 L (98-107) mmol/L BUN 45 H (7-17) mg/dL Creatinine 6.57 H (0.52-1.04) mg/dL Glucose 35 L* (74-99) mg/dL POC Glucose (mg/dL) 35 L (75-99) mg/dL Crossmatch 08/30/21 08/30/21 08/30/21 Range/Units 06:38 06:46 10:19 WBC (4.50-10.00) X 10*3/uL RBC (4.10-5.20) X 10*6/uL Hgb (12.0-15.0) g/dL Hct (37.2-46.3) % RDW (11.5-14.5) % Lymphocytes # (0.90-5.00) X 10*3/uL Sodium (137-145) mmol/L Chloride (98-107) mmol/L BUN (7-17) mg/dL Creatinine (0.52-1.04) mg/dL Glucose (74-99) mg/dL POC Glucose (mg/dL) 40 L 265 H 122 H (75-99) mg/dL Crossmatch Assessment and Plan Time with Patient: Less than 30
--- NOTE | 2021-08-30 15:32 | P.PN ---
Subjective Patient is seen for follow-up for end-stage renal disease. She was admitted to the hospital with fever and cough and has been treated for pneumonia. She has also had volume overload with uncontrolled blood pressures which improved with dialysis and ultrafiltration. Blood sugars have been difficult to control and patient had been maintained on insulin drip. Patient is seen on hemodialysis today. blood pressure was low with systolic around 115 during treatment. No fever today Objective - Vital Signs Vital signs: Vital Signs Temp 98.9 F 08/30/21 14:00 Pulse 78 08/30/21 14:00 Resp 19 08/30/21 14:00 BP 191/103 08/30/21 14:00 Pulse Ox 100 08/30/21 14:00 Intake & Output 08/29/21 08/30/21 08/30/21 18:59 06:59 18:59 Intake Total 1355 300 Output Total 3300 3800 Balance -1945 -3500 Intake: Oral 275 Blood Product 280 Rc Pheresis 2 As3 Unit 280 [id number] Hemodialysis 800 300 Output: Hemodialysis 3300 3800 Other: Voiding Method Toilet Toilet Toilet # Voids 0 - Exam Awake, comfortable, not in any acute distress Examination of the heart S1 and S2 Examination lungs bilateral breath sounds are heard Abdomen is soft Examination lower extremities shows no significant edema [employer] 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 - Labs CBC & Chem 7: 08/30/21 05:33 08/30/21 05:33 Labs: Abnormal Lab Results - Last 24 Hours (Table) 08/29/21 08/29/21 08/30/21 Range/Units 11:01 20:47 03:10 WBC (4.50-10.00) X 10*3/uL RBC (4.10-5.20) X 10*6/uL Hgb (12.0-15.0) g/dL Hct (37.2-46.3) % RDW (11.5-14.5) % Lymphocytes # (0.90-5.00) X 10*3/uL Sodium (137-145) mmol/L Chloride (98-107) mmol/L BUN (7-17) mg/dL Creatinine (0.52-1.04) mg/dL Glucose (74-99) mg/dL POC Glucose (mg/dL) 304 H 52 L (75-99) mg/dL Crossmatch See Detail 08/30/21 08/30/21 08/30/21 Range/Units 03:35 04:01 05:33 WBC (4.50-10.00) X 10*3/uL RBC (4.10-5.20) X 10*6/uL Hgb (12.0-15.0) g/dL Hct (37.2-46.3) % RDW (11.5-14.5) % Lymphocytes # (0.90-5.00) X 10*3/uL Sodium 133 L (137-145) mmol/L Chloride 96 L (98-107) mmol/L BUN 45 H (7-17) mg/dL Creatinine 6.57 H (0.52-1.04) mg/dL Glucose 35 L* (74-99) mg/dL POC Glucose (mg/dL) 46 L 132 H (75-99) mg/dL Crossmatch 08/30/21 08/30/21 08/30/21 Range/Units 05:33 06:27 06:38 WBC 3.19 L (4.50-10.00) X 10*3/uL RBC 2.66 L (4.10-5.20) X 10*6/uL Hgb 7.7 L (12.0-15.0) g/dL Hct 23.3 L (37.2-46.3) % RDW 14.8 H (11.5-14.5) % Lymphocytes # 0.35 L (0.90-5.00) X 10*3/uL Sodium (137-145) mmol/L Chloride (98-107) mmol/L BUN (7-17) mg/dL Creatinine (0.52-1.04) mg/dL Glucose (74-99) mg/dL POC Glucose (mg/dL) 35 L 40 L (75-99) mg/dL Crossmatch 08/30/21 08/30/21 08/30/21 Range/Units 06:46 10:19 11:52 WBC (4.50-10.00) X 10*3/uL RBC (4.10-5.20) X 10*6/uL Hgb (12.0-15.0) g/dL Hct (37.2-46.3) % RDW (11.5-14.5) % Lymphocytes # (0.90-5.00) X 10*3/uL Sodium (137-145) mmol/L Chloride (98-107) mmol/L BUN (7-17) mg/dL Creatinine (0.52-1.04) mg/dL Glucose (74-99) mg/dL POC Glucose (mg/dL) 265 H 122 H 211 H (75-99) mg/dL Crossmatch Assessment and Plan Assessment: 1. End-stage renal disease on hemodialysis on a Monday schedule 2. Fluid overload, improved 3. Left lower lobe pneumonia 4. Recent hospitalization for fluid overload with large pericardial effusion status post aggressive ultrafiltration of about 12 L during her stay. Antihis tone antibodies were positive these are associated with use of minoxidil and hydralazine causing pericardial effusion/pericarditis. However the pericardial effusion was much smaller on the CT and I planned to continue with hydralazine but ECHO report from yesterday shows moderate sized pericardial effusion again. Therefore hydralazine was discontinued 5. Hypertension partly volume sensitive improves with aggressive ultrafiltration. Will d/c hydralazine 6. Anemia, no active bleeding noted status post packed RBCs transfusion, maintained on Aranesp, 7. Uncontrolled blood sugars, currently on insulin drip and much improved. 8. Hyperkalemia, associated with end-stage renal disease as well as recent increase in the dose of CHANDA inhibitor's due to uncontrolled hypertension. Plan: Add labetalol Possible hemodialysis tomorrow based on labs
[2021-08-30] MEDS: HYDROcodone/APAP 5-325MG 1 EACH TAB PO PRN (15:39)
[2021-08-30 16:47] LABS: Glucose,Whole Blood 213 mg/dL (75-99)
--- NOTE | 2021-08-30 19:05 | P.PN ---
Subjective Progress Note Date: 08/30/21 Principal diagnosis: Pneumonia Patient is a 30-year-old female with a past medical history significant for end-stage renal disease on dialysis presented to the hospital w ith a fever of left lower chest pain concerning for pneumonia. On today's evaluation that is 08/30/2021, The patient is afebrile today, the patient is breathing comfortably on room air, the patient did have a cough but not because of any sputum no nausea no vomiting no abdominal pain no diarrhea Objective - Vital Signs Vital signs: Vital Signs Temp 98.1 F 08/30/21 03:15 Pulse 66 08/30/21 03:15 Resp 18 08/30/21 03:15 BP 171/89 08/30/21 06:06 Pulse Ox 97 08/30/21 03:15 Intake & Output 08/29/21 08/30/21 08/30/21 18:59 06:59 18:59 Intake Total 1355 Output Total 3300 Balance -1945 Intake: Oral 275 Blood Product 280 Rc Pheresis 2 As3 Unit 280 [id number] Hemodialysis 800 Output: Hemodialysis 3300 Other: Voiding Method Toilet Toilet # Voids 0 - Exam GENERAL DESCRIPTION: Middle-age female lying in bed in no distress RESPIRATORY SYSTEM: Unlabored breathing , decreased breath sounds at bases HEART: S1 S2 regular rate and rhythm , ABDOMEN: Soft , no tenderness EXTREMITIES: No edema feet - Labs CBC & Chem 7: 08/30/21 05:33 08/30/21 05:33 Labs: Abnormal Lab Results - Last 24 Hours (Table) 08/29/21 08/29/21 08/29/21 Range/Units 06:02 11:01 11:23 WBC 4.46 L (4.50-10.00) X 10*3/uL RBC 2.10 L (4.10-5.20) X 10*6/uL Hgb 6.1 L* (12.0-15.0) g/dL Hct 18.9 L* (37.2-46.3) % RDW 14.8 H (11.5-14.5) % Lymphocytes # 0.63 L (0.90-5.00) X 10*3/uL Sodium (137-145) mmol/L Chloride (98-107) mmol/L BUN (7-17) mg/dL Creatinine (0.52-1.04) mg/dL Glucose (74-99) mg/dL POC Glucose (mg/dL) 269 H (75-99) mg/dL Crossmatch See Detail 08/29/21 08/30/21 08/30/21 Range/Units 20:47 03:10 03:35 WBC (4.50-10.00) X 10*3/uL RBC (4.10-5.20) X 10*6/uL Hgb (12.0-15.0) g/dL Hct (37.2-46.3) % RDW (11.5-14.5) % Lymphocytes # (0.90-5.00) X 10*3/uL Sodium (137-145) mmol/L Chloride (98-107) mmol/L BUN (7-17) mg/dL Creatinine (0.52-1.04) mg/dL Glucose (74-99) mg/dL POC Glucose (mg/dL) 304 H 52 L 46 L (75-99) mg/dL Crossmatch 08/30/21 08/30/21 08/30/21 Range/Units 04:01 05:33 05:33 WBC 3.19 L (4.50-10.00) X 10*3/uL RBC 2.66 L (4.10-5.20) X 10*6/uL Hgb 7.7 L (12.0-15.0) g/dL Hct 23.3 L (37.2-46.3) % RDW 14.8 H (11.5-14.5) % Lymphocytes # 0.35 L (0.90-5.00) X 10*3/uL Sodium 133 L (137-145) mmol/L Chloride 96 L (98-107) mmol/L BUN 45 H (7-17) mg/dL Creatinine 6.57 H (0.52-1.04) mg/dL Glucose 35 L* (74-99) mg/dL POC Glucose (mg/dL) 132 H (75-99) mg/dL Crossmatch 08/30/21 08/30/21 08/30/21 Range/Units 06:27 06:38 06:46 WBC (4.50-10.00) X 10*3/uL RBC (4.10-5.20) X 10*6/uL Hgb (12.0-15.0) g/dL Hct (37.2-46.3) % RDW (11.5-14.5) % Lymphocytes # (0.90-5.00) X 10*3/uL Sodium (137-145) mmol/L Chloride (98-107) mmol/L BUN (7-17) mg/dL Creatinine (0.52-1.04) mg/dL Glucose (74-99) mg/dL POC Glucose (mg/dL) 35 L 40 L 265 H (75-99) mg/dL Crossmatch 08/30/21 Range/Units 10:19 WBC (4.50-10.00) X 10*3/uL RBC (4.10-5.20) X 10*6/uL Hgb (12.0-15.0) g/dL Hct (37.2-46.3) % RDW (11.5-14.5) % Lymphocytes # (0.90-5.00) X 10*3/uL Sodium (137-145) mmol/L Chloride (98-107) mmol/L BUN (7-17) mg/dL Creatinine (0.52-1.04) mg/dL Glucose (74-99) mg/dL POC Glucose (mg/dL) 122 H (75-99) mg/dL Crossmatch Assessment and Plan (1) Sepsis due to pneumonia Current Visit: Yes Status: Acute Code(s): J18.9 - PNEUMONIA, UNSPECIFIED ORGANISM; A41.9 - SEPSIS, UNSPECIFIED ORGANISM SNOMED Code(s): 48600934 Plan: 1patient presented to hospital with fever in this patient also have a left lower rib cage pain which is pleuritic concerning for possible pneumonia and question of possible aspiration etiology recently completed course of oral Augmentin. 2 Patient did have a new fever which is concerning cultures will be repeated chest x-ray will be repeated continue with the vancomycin and monitor clinical course closely Time with Patient: Less than 30
[2021-08-30] MEDS: ISOSORBIDE MONONITRATE ER 30 MG TAB.ER.24H PO SCH (20:43)
[2021-08-30 20:51] LABS: Glucose,Whole Blood 211 mg/dL (75-99)
[2021-08-30] MEDS ORDERED: INSULIN DETEMIR (LEVEMIR) 100 UNIT/ML SYR SQ SCH (21:00)
[2021-08-31] MEDS: HYDROmorphone 0.5 MG/0.5 ML SYRINGE IVP PRN ×4 (01:10→14:07)
[2021-08-31 03:02] LABS: Glucose,Whole Blood 393 mg/dL (75-99)
[2021-08-31] MEDS: LORazepam 2 MG/ML INJ IV PRN ×2 (05:34→17:13)
[2021-08-31 07:03] LABS: Glucose,Whole Blood 373 mg/dL (75-99)
[2021-08-31] MEDS: carvediloL 12.5 MG TAB PO SCH ×2 (07:11→16:06)
[2021-08-31] MEDS: lisinopriL 20 MG TAB PO SCH (07:11)
[2021-08-31] MEDS: PANTOPRAZOLE 40 MG TABLET PO SCH ×2 (07:12→21:31)
[2021-08-31] MEDS: SEVELAMER 800 MG TAB PO SCH ×3 (07:12→17:15)
[2021-08-31] MEDS: ESCITALOPRAM 20 MG TAB PO SCH (07:12)
[2021-08-31] MEDS: INSULIN ASPART (NovoLOG) 100 UNIT/ML VIAL SQ SCH ×3 (07:12→17:13)
[2021-08-31] MEDS: CYANOCOBALAMIN 500 MCG TAB PO SCH (07:12)
[2021-08-31] MEDS: cloNIDine HCL 0.1 MG TAB PO SCH ×3 (07:12→21:31)
[2021-08-31] MEDS: HEPARIN SODIUM,PORCINE/PF 5,000 UNIT/0.5 ML SYRINGE SQ SCH ×2 (07:14→21:26)
[2021-08-31] MEDS: ASPIRIN 81 MG PO SCH (07:14)
[2021-08-31] MEDS: ALBUTEROL NEBULIZED 2.5 MG/3 ML INHALATION PRN (08:20)
--- NOTE | 2021-08-31 08:43 | XR ---
EXAMINATION TYPE: XR chest 2V DATE OF EXAM: 08/31/2021 COMPARISON: Chest x-ray 08/26/[address] 08/21/2021 HISTORY: Pneumonia TECHNIQUE: Frontal and lateral views of the chest are obtained. FINDINGS: The heart remains enlarged. There is no evident pneumothorax or pleural effusion. Some imp rovement in aeration present within the lungs. Surgical clips present in the right upper quadrant. IMPRESSION: Improved aeration. Cardiomegaly, there is pericardial effusion
[2021-08-31] MEDS ORDERED: VANCOMYCIN 750 MG in SODIUM CHLORIDE 0.9% 250 ML IVPB ONE (09:00)
[2021-08-31 09:27] LABS: African American GFR (CKD) 9.4 (60.0-200.0); Anion Gap 19.3 mmol/L (10.00-18.00); BUN/Creat Ratio 6.21 Ratio (12.00-20.00); Blood Urea Nitrogen 39.1 mg/dL (9.0-27.0); C Reactive Protein 6.8 mg/dL (0.00-0.80); Calcium 8.8 mg/dL (8.7-10.3); Carbon Dioxide 22.7 mmol/L (20.0-27.5); Non-African American GFR(CKD) 8.1 (60.0-200.0); Potassium 4.7 mmol/L (3.5-5.5)
[2021-08-31 10:19] LABS: Glucose,Whole Blood 26 mg/dL (75-99)
[2021-08-31] MEDS ORDERED: DEXTROSE 50% SYRINGE 50 ML IVP ONE (10:19)
[2021-08-31 10:30] LABS: Glucose,Whole Blood 284 mg/dL (75-99)
[2021-08-31] MEDS ORDERED: LABETALOL 200 MG TAB PO SCH (10:30)
[2021-08-31 11:11] LABS: Glucose,Whole Blood 123 mg/dL (75-99)
--- NOTE | 2021-08-31 14:27 | P.PN ---
Subjective Patient is seen for follow-up for end-stage renal disease. She was admitted to the hospital with fever and cough and has been treated for pneumonia. She has also had volume overload with uncontrolled blood pressures which improved with dialysis and ultrafiltration. Blood sugars have been difficult to control and patient had been maintained on insulin drip. Patient is laying in her bed. She is comfortable she has tolerated a sandwich. Blood pressure is around 160-1 70 mmHg systolic. Nosebleeds improved Cough about the same per patient. Objective - Vital Signs Vital signs: Vital Signs Temp 98.6 F 08/31/21 07:27 Pulse 76 08/31/21 08:32 Resp 14 08/31/21 08:56 BP 167/81 08/31/21 09:22 Pulse Ox 96 08/31/21 08:32 Intake & Output 08/30/21 08/31/21 08/31/21 18:59 06:59 18:59 Intake Total 300 Output Total 3800 Balance -3500 Weight 47.627 kg Intake: Hemodialysis 300 Output: Hemodialysis 3800 Other: Voiding Method Toilet Toilet Toilet # Voids 2 2 - Exam Awake, comfortable, not in any acute distress Abdomen is soft Examination lower extremities shows no significant edema [employer] ENGRA[employer] HAND exam grossly intact - Labs CBC & Chem 7: 08/30/21 05:33 08/31/21 04:53 Labs: Abnormal Lab Results - Last 24 Hours (Table) 08/30/21 08/30/21 08/31/21 Range/Units 16:46 20:50 03:00 Sodium (135-145) mmol/L Chloride (96-109) mmol/L Anion Gap (10.00-18.00) mmol/L BUN (9.0-27.0) mg/dL Creatinine (0.6-1.5) mg/dL Est GFR (CKD-EPI)AfAm (60.0-200.0) Est GFR (CKD-EPI)NonAf (60.0-200.0) BUN/Creatinine Ratio (12.00-20.00) Ratio Glucose (70-110) mg/dL POC Glucose (mg/dL) 213 H 211 H 393 H (75-99) mg/dL C-Reactive Protein (0.00-0.80) mg/dL Procalcitonin (0.02-0.09) ng/mL 04/10/1708/31/21 08/31/21 Range/Units 04:53 04:53 07:02 Sodium 132 L (135-145) mmol/L Chloride 90 L (96-109) mmol/L Anion Gap 19.30 H (10.00-18.00) mmol/L BUN 39.1 H (9.0-27.0) mg/dL Creatinine 6.3 H (0.6-1.5) mg/dL Est GFR (CKD-EPI)AfAm 9.4 L (60.0-200.0) Est GFR (CKD-EPI)NonAf 8.1 L (60.0-200.0) BUN/Creatinine Ratio 6.21 L (12.00-20.00) Ratio Glucose 355 H (70-110) mg/dL POC Glucose (mg/dL) 373 H (75-99) mg/dL C-Reactive Protein 6.80 H (0.00-0.80) mg/dL Procalcitonin 5.31 H (0.02-0.09) ng/mL 08/31/21 08/31/21 08/31/21 Range/Units 10:18 10:29 11:10 Sodium (135-145) mmol/L Chloride (96-109) mmol/L Anion Gap (10.00-18.00) mmol/L BUN (9.0-27.0) mg/dL Creatinine (0.6-1.5) mg/dL Est GFR (CKD-EPI)AfAm (60.0-200.0) Est GFR (CKD-EPI)NonAf (60.0-200.0) BUN/Creatinine Ratio (12.00-20.00) Ratio Glucose (70-110) mg/dL POC Glucose (mg/dL) 26 L 284 H 123 H (75-99) mg/dL C-Reactive Protein (0.00-0.80) mg/dL Procalcitonin (0.02-0.09) ng/mL Assessment and Plan Assessment: 1. End-stage renal disease on hemodialysis on a Monday schedule 2. Fluid overload, improved 3. Left lower lobe pneumonia 4. Recent hospitalization for fluid overload with large pericardial effusion status post aggressive ultrafiltration of about 12 L during her stay. Antihistone antibodies were positive these are associated with use of minoxidil and hydralazine causing pericardial effusion/pericarditis. However the pericardial effusion was much smaller on the CT and I planned to continue with hydralazine but ECHO report from yesterday shows moderate sized pericardial effusion again. Therefore hydralazine was discontinued 5. Hypertension partly volume sensitive improves with aggressive ultrafiltration. Will d/c hydralazine. Labetalol added 6. Anemia, no active bleeding noted status post packed RBCs transfusion, maintained on Aranesp, 7. Uncontrolled blood sugars, currently on insulin drip and much improved. 8. Hyperkalemia, associated with end-stage renal disease as well as recent increase in the dose of CHANDA inhibitor's due to uncontrolled hypertension. Plan: Hemodialysis in a.m. Increase labetalol if blood pressure remains elevated.
--- NOTE | 2021-08-31 14:53 | P.PN ---
Subjective Progress Note Date: 08/31/21 08/27/2021 Patient evaluated today during hemodialysis. Continues with persistent cough, which has been nonproductive. Continues on 2 L nasal cannula can wean as tolerated. Patient is afebrile, no acute events overnight. Blood sugars continued extreme highs and lows, patient was started back on insulin drip, was acetone positive, blood sugar in the 600s, currently anion gap 14. We will repeat labs if gap has closed we will transition patient to subcutaneous insulin. Echocardiogram was done yesterday which shows EF 55-60% with moderate to severe tricuspid regurg, trace mitral regurg, severe pulmonary hypertension and a moderate generalized pericardial effusion. Once medically stable at [facility] patient will continue with vancomycin for 2 weeks during dialysis recommended by ID. 08/28/2021 Patient evaluated today resting in bed. Hydralazine was discontinued as echo redemonstrated pericardial effusion. Sugars have been better controlled as patient continues on the insulin gtt. Pending repeat anion gap, once closed will transition patient. She states overall she is feeling better as her sugars have not been having extreme highs and lows and her blood pressure has been more controlled in the last 24 hours. Cough is slightly better today still non productive. Discussed keeping patient on gtt until anion gap is less than 10, will transition and monitor sugars and should be able to DC home. 08/29/2021 Blood pressure elevated into the 200s yesterday evening, has trended down some. Continues off hydralazine. labs today showing potassium of 6.0, sodium 127, creatinine 8.41, patient will undergo dialysis today. Patient was transitioned off the insulin gtt yesterday receieved 14 of levemir last night and short acting meal time coverage. Sugars have ranged from 77 to 269 today. Still with harsh non pruductive cough states that her lungs are quit sore from coughing. hgb today 6.1, 1 unit PRBC's will be transfused with dialysis. Patient is having a nose bleed with some clots, states this happens when her blood pressure is elevated. Ordered a one time dose of Afrin if nose bleed continues. Spiked temp of 101.1. Discussed IS patient agreeable to use. 08/30/2021 Evaluated during dialysis today. Blood sugar dropped into the 30s this morning, decreased levemir to 10 units HS and stopped the scheduled insulin, continue with scale as needed. Hemoglobin today 7.7 s/p 1 unit prbc and per patient nosebleed has stopped. Labs are better today as well, sodium 133, potassium 4.4, bun 45, creat 6.57. No more temps, cough seems improved today. Continues on IV vanco with dialysis and will continue for another 7 days after discharge. Hopefully should be able to DC tomorrow which patient agreeable with. 08/31/2021 Patient evaluated this morning. Blood sugar was 26 at that time patient did present with diaphoresis and felt shaky. Responded well to food and also requested IVP dextrose. She has been receiving Dilaudid every 3 hours which we did cut back to every 6. Chest xray today shows improving aeration. She has now been afebrile for 2 days. Nose bleed has improved. Blood pressure also elevated today. She was started on labetolol. Requesting to see if family can bring patient's home lantus to take tonight in place of levemir and see how blood sugars respond. Plan will be for discharge tomorrow after dialysis. Requested endocrine evaluation if available. Patient is a brittle diabetic and difficult to control sugars. Review of Systems Constitutional: Denied any fatigue denied any fever. Cardio vascular: denied any chest pain, palpitations Gastrointestinal: denied any nausea, vomiting, diarrhea Pulmonary: Denies shortness of breath, reports dry persistant cough Neurologic denied any new focal deficits All inpatient medications were reviewed and appropriate changes in these medications as dictated in the interval history and assessment and plan. PHYSICAL EXAMINATION: GENERAL: The patient is alert and oriented x3, ill appearing, fatigued. Pale. HEENT: Pupils are round and equally reacting to light. EOMI. No scleral icterus. No conjunctival pallor. Normocephalic, atraumatic. No pharyngeal erythema. No thyromegaly. CARDIOVASCULAR: S1 and S2 muffled PULMONARY: Chest is diminished bilaterally, no wheezing, crackles noted. ABDOMEN: Soft, nontender, nondistended, normoactive bowel sounds. No palpable organomegaly. dry cough on exam MUSCULOSKELETAL: No joint swelling or deformity. EXTREMITIES: No cyanosis, clubbing, or pedal edema. NEUROLOGICAL: Gross neurological examination did not reveal any focal deficits. SKIN: No rashes. Assessment: -Sepsis: Secondary to bilateral interstitial multifocal pneumonia, on IV antibiotics will need 1 more week and course will be finished. -End-stage renal disease, hemodialysis dependent monday -Hyponatremia secondary to chronic kidney disease -Hyperkalemia secondary to chronic renal disease -Anemia, chronic maintained on aranesp -Type 1 diabetes mellitus, uncontrolled with hyperglycemia as well as hypoglycemia, brittle -Pericardial effusion -Pleuritic chest pain and a parapneumonic effusion -Hypertension secondary to renal disease -Depression -DVT prophylaxis: subcutaneous heparin -GI prophylaxis -Full Code Plan Dialysis in AM Requesting patients home lantus be brought to hospital Levemir decreased to 8 units HS Started on labetolol today; monitor blood pressures Continue all other supportive care Continue to use IS Prognosis guarded Discharge in the next 24 to 48 hours Will need IV vanco for 7 more days after discharge per ID recs. The impression and plan of care has been dictated by Jael Keane, Nurse Practitioner as directed. Dr. Sudeep MD I have performed a history and physical examination and medical decision making of this patient, discussed the same with the dictator, and agree with the dictators assessment and plan as written, documented as a scribe. Based on total visit time, I have performed more than 50% of this visit. Objective - Vital Signs Vital signs: Vital Signs Temp 98.6 F 08/31/21 07:27 Pulse 76 08/31/21 08:32 Resp 14 08/31/21 08:56 BP 167/81 08/31/21 09:22 Pulse Ox 96 08/31/21 08:32 Intake & Output 08/30/21 08/31/21 08/31/21 18:59 06:59 18:59 Intake Total 300 Output Total 3800 Balance -3500 Intake: Hemodialysis 300 Output: Hemodialysis 3800 Other: Voiding Method Toilet Toilet Toilet # Voids 2 2 - Labs CBC & Chem 7: 08/30/21 05:33 08/31/21 04:53 Labs: Abnormal Lab Results - Last 24 Hours (Table) 08/30/21 08/30/21 08/31/21 Range/Units 16:46 20:50 03:00 Sodium (135-145) mmol/L Chloride (96-109) mmol/L Anion Gap (10.00-18.00) mmol/L BUN (9.0-27.0) mg/dL Creatinine (0.6-1.5) mg/dL Est GFR (CKD-EPI)AfAm (60.0-200.0) Est GFR (CKD-EPI)NonAf (60.0-200.0) BUN/Creatinine Ratio (12.00-20.00) Ratio Glucose (70-110) mg/dL POC Glucose (mg/dL) 213 H 211 H 393 H (75-99) mg/dL C-Reactive Protein (0.00-0.80) mg/dL Procalcitonin (0.02-0.09) ng/mL 08/31/21 08/31/21 08/31/21 Range/Units 04:53 04:53 07:02 Sodium 132 L (135-145) mmol/L Chloride 90 L (96-109) mmol/L Anion Gap 19.30 H (10.00-18.00) mmol/L BUN 39.1 H (9.0-27.0) mg/dL Creatinine 6.3 H (0.6-1.5) mg/dL Est GFR (CKD-EPI)AfAm 9.4 L (60.0-200.0) Est GFR (CKD-EPI)NonAf 8.1 L (60.0-200.0) BUN/Creatinine Ratio 6.21 L (12.00-20.00) Ratio Glucose 355 H (70-110) mg/dL POC Glucose (mg/dL) 373 H (75-99) mg/dL C-Reactive Protein 6.80 H (0.00-0.80) mg/dL Procalcitonin 5.31 H (0.02-0.09) ng/mL 08/31/21 08/31/21 08/31/21 Range/Units 10:18 10:29 11:10 Sodium (135-145) mmol/L Chloride (96-109) mmol/L Anion Gap (10.00-18.00) mmol/L BUN (9.0-27.0) mg/dL Creatinine (0.6-1.5) mg/dL Est GFR (CKD-EPI)AfAm (60.0-200.0) Est GFR (CKD-EPI)NonAf (60.0-200.0) BUN/Creatinine Ratio (12.00-20.00) Ratio Glucose (70-110) mg/dL POC Glucose (mg/dL) 26 L 284 H 123 H (75-99) mg/dL C-Reactive Protein (0.00-0.80) mg/dL Procalcitonin (0.02-0.09) ng/mL Assessment and Plan Time with Patient: Less than 30
[2021-08-31] MEDS: ENALAPRILAT 1.25 MG/ML 1 ML VIAL IVP PRN (15:06)
[2021-08-31] MEDS: LABETALOL 200 MG TAB PO SCH ×2 (15:06→22:49)
[2021-08-31 15:53] LABS: Glucose,Whole Blood 247 mg/dL (75-99)
[2021-08-31] MEDS: HYDROcodone/APAP 5-325MG 1 EACH TAB PO PRN (16:06)
[2021-08-31 16:57] LABS: Glucose,Whole Blood 357 mg/dL (75-99)
[2021-08-31] MEDS: ACETAMINOPHEN TAB 325 MG TAB PO PRN ×2 (17:22→22:53)
[2021-08-31] MEDS ORDERED: LABETALOL 100 MG TAB PO STA (18:50)
[2021-08-31 20:16] LABS: Glucose,Whole Blood 576 mg/dL (75-99)
[2021-08-31 20:18] LABS: Glucose,Whole Blood 534 mg/dL (75-99)
[2021-08-31] MEDS: INSULIN DETEMIR (LEVEMIR) 100 UNIT/ML SYR SQ SCH (21:31)
[2021-08-31] MEDS: ISOSORBIDE MONONITRATE ER 30 MG TAB.ER.24H PO SCH (21:31)
--- NOTE | 2021-08-31 21:53 | P.PN ---
Subjective Progress Note Date: 08/31/21 Principal diagnosis: anemia In f/u today pt continues to be very tired. Denies fever, bleeding. Objective - Vital Signs Vital signs: Vital Signs Temp 99.8 F H 08/31/21 20:16 Pulse 83 08/31/21 20:16 Resp 16 08/31/21 20:16 BP 215/96 08/31/21 21:21 Pulse Ox 99 08/31/21 20:16 Intake & Output 08/31/21 08/31/21 09/01/21 06:59 18:59 06:59 Weight 47.627 kg Other: Voiding Method Toilet Toilet # Voids 2 1 - Constitutional General appearance: Present: cooperative, no acute distress, thin - EENT Eyes: Present: anicteric sclerae, EOMI ENT: Present: hearing grossly normal - Respiratory Details: resp even and unlabored - Integumentary Integumentary: Present: pale - Neurologic Neurologic: Present: CNII-XII intact - Musculoskeletal Musculoskeletal: Present: strength equal bilaterally - Psychiatric Psychiatric: Present: A&O x's 3, appropriate affect, intact judgment & insight - Labs CBC & Chem 7: 08/30/21 05:33 08/31/21 04:53 Labs: Abnormal Lab Results - Last 24 Hours (Table) 08/31/21 08/31/21 08/31/21 Range/Units 03:00 04:53 04:53 Sodium 132 L (135-145) mmol/L Chloride 90 L (96-109) mmol/L Anion Gap 19.30 H (10.00-18.00) mmol/L BUN 39.1 H (9.0-27.0) mg/dL Creatinine 6.3 H (0.6-1.5) mg/dL Est GFR (CKD-EPI)AfAm 9.4 L (60.0-200.0) Est GFR (CKD-EPI)NonAf 8.1 L (60.0-200.0) BUN/Creatinine Ratio 6.21 L (12.00-20.00) Ratio Glucose 355 H (70-110) mg/dL POC Glucose (mg/dL) 393 H (75-99) mg/dL C-Reactive Protein 6.80 H (0.00-0.80) mg/dL Procalcitonin 5.31 H (0.02-0.09) ng/mL 08/31/21 08/31/21 08/31/21 Range/Units 07:02 10:18 10:29 Sodium (135-145) mmol/L Chloride (96-109) mmol/L Anion Gap (10.00-18.00) mmol/L BUN (9.0-27.0) mg/dL Creatinine (0.6-1.5) mg/dL Est GFR (CKD-EPI)AfAm (60.0-200.0) Est GFR (CKD-EPI)NonAf (60.0-200.0) BUN/Creatinine Ratio (12.00-20.00) Ratio Glucose (70-110) mg/dL POC Glucose (mg/dL) 373 H 26 L 284 H (75-99) mg/dL C-Reactive Protein (0.00-0.80) mg/dL Procalcitonin (0.02-0.09) ng/mL 08/31/21 08/31/21 08/31/21 Range/Units 11:10 15:52 16:56 Sodium (135-145) mmol/L Chloride (96-109) mmol/L Anion Gap (10.00-18.00) mmol/L BUN (9.0-27.0) mg/dL Creatinine (0.6-1.5) mg/dL Est GFR (CKD-EPI)AfAm (60.0-200.0) Est GFR (CKD-EPI)NonAf (60.0-200.0) BUN/Creatinine Ratio (12.00-20.00) Ratio Glucose (70-110) mg/dL POC Glucose (mg/dL) 123 H 247 H 357 H (75-99) mg/dL C-Reactive Protein (0.00-0.80) mg/dL Procalcitonin (0.02-0.09) ng/mL 08/31/21 08/31/21 Range/Units 20:14 20:16 Sodium (135-145) mmol/L Chloride (96-109) mmol/L Anion Gap (10.00-18.00) mmol/L BUN (9.0-27.0) mg/dL Creatinine (0.6-1.5) mg/dL Est GFR (CKD-EPI)AfAm (60.0-200.0) Est GFR (CKD-EPI)NonAf (60.0-200.0) BUN/Creatinine Ratio (12.00-20.00) Ratio Glucose (70-110) mg/dL POC Glucose (mg/dL) 576 H 534 H (75-99) mg/dL C-Reactive Protein (0.00-0.80) mg/dL Procalcitonin (0.02-0.09) ng/mL - Imaging and Cardiology Chest x-ray: report reviewed (improved aeration) Assessment and Plan (1) Bicytopenia Narrative/Plan: Patient's hemoglobin was noted to be low back in late 2020, likely during an episode of acute illness, then normal in May 2021. Now low again. She has been transfused twice this hospitalization. Anemia workup most suggestive of anemia of inflammation, chronic disease. B12 supplement started-MMA high. Nephrology following and has started pt on aranesp. Paraproteinemia workup neg-most suggestive of inflammation WBC not normal but remains adequate, ANC is adequate. Cont to monitor CT CAP reviewed, no report of findings suspicious for malignancy. Cont to follow labs. Current Visit: Yes Status: Acute Priority: High Code(s): D75.89 - OTHER SPECIFIED DISEASES OF BLOOD AND BLOOD-FORMING ORGANS SNOMED Code(s): 13621358
[2021-08-31 22:43] LABS: Glucose,Whole Blood >600 mg/dL (75-99)
[2021-08-31 22:44] LABS: Glucose,Whole Blood >600 mg/dL (75-99)
[2021-09-01] MEDS ORDERED: INSULIN ASPART (NovoLOG) 100 UNIT/ML VIAL SQ ONE (00:05)
[2021-09-01] MEDS: INSULIN ASPART (NovoLOG) 100 UNIT/ML VIAL SQ SCH ×5 (00:08→21:26)
[2021-09-01] MEDS ORDERED: LABETALOL 5 MG/ML VIAL MDV IVP PRN (00:37)
[2021-09-01 01:21] LABS: Glucose,Whole Blood 535 mg/dL (75-99)
[2021-09-01] MEDS: HYDROmorphone 0.5 MG/0.5 ML SYRINGE IVP PRN ×3 (01:38→21:25)
[2021-09-01] MEDS: LORazepam 2 MG/ML INJ IV PRN ×3 (02:32→22:13)
[2021-09-01 02:40] LABS: Glucose,Whole Blood 397 mg/dL (75-99)
[2021-09-01 04:29] LABS: Glucose,Whole Blood 215 mg/dL (75-99)
[2021-09-01 06:10] LABS: Glucose,Whole Blood 130 mg/dL (75-99)
[2021-09-01] MEDS: SEVELAMER 800 MG TAB PO SCH ×3 (06:49→18:01)
[2021-09-01] MEDS: carvediloL 12.5 MG TAB PO SCH ×2 (06:49→18:33)
[2021-09-01] MEDS: BENZONATATE 100 MG CAP PO PRN (06:53)
[2021-09-01] MEDS: LABETALOL 200 MG TAB PO SCH ×3 (08:52→17:59)
[2021-09-01] MEDS: CYANOCOBALAMIN 500 MCG TAB PO SCH ×2 (08:52→18:33)
[2021-09-01] MEDS: cloNIDine HCL 0.1 MG TAB PO SCH ×3 (08:52→17:59)
[2021-09-01] MEDS: diphenhydrAMINE 25 MG CAP PO PRN (08:52)
[2021-09-01] MEDS: ASPIRIN 81 MG PO SCH ×2 (08:53→18:33)
[2021-09-01] MEDS: ESCITALOPRAM 20 MG TAB PO SCH ×2 (08:53→18:33)
[2021-09-01] MEDS: PANTOPRAZOLE 40 MG TABLET PO SCH ×3 (08:53→18:33)
[2021-09-01] MEDS: HEPARIN SODIUM,PORCINE/PF 5,000 UNIT/0.5 ML SYRINGE SQ SCH ×2 (09:02→21:26)
[2021-09-01 11:49] LABS: Glucose,Whole Blood 285 mg/dL (75-99)
--- NOTE | 2021-09-01 12:01 | P.PN ---
Subjective Patient is seen for follow-up for end-stage renal disease. She was admitted to the hospital with fever and cough and has been treated for pneumonia. She has also had volume overload with uncontrolled blood pressures which improved with dialysis and ultrafiltration. Blood sugars have been difficult to control and patient had been maintained on insulin drip. Patient is laying in her bed. Blood pressure was high yesterday. Patient was transferred to telemetry floor to receive when necessary IV labetalol. Blood sugars have been fluctuating Patient was hallucinating Objective - Vital Signs Vital signs: Vital Signs Temp 98.7 F 09/01/21 07:40 Pulse 74 09/01/21 07:40 Resp 16 09/01/21 07:40 BP 124/72 09/01/21 07:40 Pulse Ox 99 09/01/21 07:40 Intake & Output 08/31/21 09/01/21 09/01/21 18:59 06:59 18:59 Intake Total 10 Output Total 0 Balance 10 0 Weight 47.627 kg Intake: IV 10 Invasive Line 6 10 Output: Urine 0 Other: Voiding Method Toilet Toilet Toilet # Voids 1 0 0 # Bowel Movements 0 1 - Exam Awake, comfortable, not in any acute distress Abdomen is soft Examination lower extremities shows no significant edema [employer] exam grossly intact - Labs CBC & Chem 7: 08/30/21 05:33 08/31/21 22:53 Labs: Abnormal Lab Results - Last 24 Hours (Table) 08/31/21 08/31/21 08/31/21 Range/Units 15:52 16:56 20:14 Glucose (74-99) mg/dL POC Glucose (mg/dL) 247 H 357 H 576 H (75-99) mg/dL 08/31/21 08/31/21 08/31/21 Range/Units 20:16 22:41 22:43 Glucose (74-99) mg/dL POC Glucose (mg/dL) 534 H >600 H >600 H (75-99) mg/dL 08/31/21 09/01/21 09/01/21 Range/Units 22:53 01:19 02:39 Glucose 659 H* (74-99) mg/dL POC Glucose (mg/dL) 535 H 397 H (75-99) mg/dL 09/01/21 09/01/21 09/01/21 Range/Units 04:25 06:09 11:47 Glucose (74-99) mg/dL POC Glucose (mg/dL) 215 H 130 H 285 H (75-99) mg/dL Microbiology - Last 24 Hours (Table) 08/31/21 04:53 Blood Culture - Preliminary Blood No Growth after 24 hours Assessment and Plan Assessment: 1. End-stage renal disease on hemodialysis on a Monday schedule 2. Fluid overload, improved 3. Left lower lobe pneumonia 4. Recent hospitalization for fluid overload with large pericardial effusion status post aggressive ultrafiltration of about 12 L during her stay. Antihistone antibodies were positive these are associated with use of minoxidil and hydralazine causing pericardial effusion/pericarditis. However the pericardial effusion was much smaller on the CT and I planned to continue with hydralazine but ECHO report from yesterday shows moderate sized pericardial effusion again. Therefore hydralazine was discontinued 5. Hypertension partly volume sensitive improves with aggressive ultrafiltration. Will d/c hydralazine. Labetalol added 6. Anemia, no active bleeding noted status post packed RBCs transfusion, maintained on Aranesp, 7. Uncontrolled blood sugars, currently on insulin drip and much improved. 8. Hyperkalemia, associated with end-stage renal disease as well as recent increase in the dose of CHANDA inhibitor's due to uncontrolled hypertension. Plan: Hemodialysis today, goal UF about 4 L.
[2021-09-01] MEDS ORDERED: BARIUM SULFATE 450 ML ORAL.SUSP BOTTLE PO PRN (13:54)
--- NOTE | 2021-09-01 15:20 | P.PN ---
Subjective Progress Note Date: 09/01/21 Principal diagnosis: anemia In f/u today pt continues to be very tired, c/o ribs spasms, bilaterally, come and go. Denies fever, bleeding. Objective - Vital Signs Vital signs: Vital Signs Temp 97.5 F L 09/01/21 12:00 Pulse 73 09/01/21 12:00 Resp 20 09/01/21 12:00 BP 123/70 09/01/21 12:00 Pulse Ox 98 09/01/21 12:00 Intake & Output 08/31/21 09/01/21 09/01/21 18:59 06:59 18:59 Intake Total 10 Output Total 0 Balance 10 0 Weight 47.627 kg Intake: IV 10 Invasive Line 6 10 Output: Urine 0 Other: Voiding Method Toilet Toilet Toilet # Voids 1 0 0 # Bowel Movements 0 1 - Constitutional Constitutional Comment(s): thin, petite General appearance: Present: cooperative, thin - EENT Eyes: Present: anicteric sclerae, EOMI ENT: Present: hearing grossly normal - Respiratory Respiratory: right: CTA, left: rales - Cardiovascular Rhythm: regular Heart sounds: normal: S1, S2 Abnormal Heart Sounds: Absent: systolic murmur, diastolic murmur, rub, S3 Gallop, S4 Gallop, click, other - Peripheral edema leg Peripheral Edema: bilateral: None - Gastrointestinal General gastrointestinal: Present: normal bowel sounds, soft - Integumentary Integumentary: Present: pale - Neurologic Neurologic: Present: CNII-XII intact - Musculoskeletal Musculoskeletal: Present: strength equal bilaterally - Psychiatric Psychiatric: Present: A&O x's 3, appropriate affect, intact judgment & insight - Labs CBC & Chem 7: 08/30/21 05:33 08/31/21 22:53 Labs: Abnormal Lab Results - Last 24 Hours (Table) 08/31/21 08/31/21 08/31/21 Range/Units 15:52 16:56 20:14 Glucose (74-99) mg/dL POC Glucose (mg/dL) 247 H 357 H 576 H (75-99) mg/dL 08/31/21 08/31/21 08/31/21 Range/Units 20:16 22:41 22:43 Glucose (74-99) mg/dL POC Glucose (mg/dL) 534 H >600 H >600 H (75-99) mg/dL 08/31/21 09/01/21 09/01/21 Range/Units 22:53 01:19 02:39 Glucose 659 H* (74-99) mg/dL POC Glucose (mg/dL) 535 H 397 H (75-99) mg/dL 09/01/21 09/01/21 09/01/21 Range/Units 04:25 06:09 11:47 Glucose (74-99) mg/dL POC Glucose (mg/dL) 215 H 130 H 285 H (75-99) mg/dL Microbiology - Last 24 Hours (Table) 08/31/21 04:53 Blood Culture - Preliminary Blood No Growth after 24 hours Assessment and Plan (1) Bicytopenia Narrative/Plan: Patient's hemoglobin was noted to be low back in late 2020, likely during an epi sode of acute illness, then normal in May 2021. Now low again. She has been transfused twice this hospitalization. Anemia workup most suggestive of anemia of inflammation, chronic disease. B12 s upplement started-MMA high-cont oral, Rx sent. Nephrology following and has started pt on aranesp. Told pt would anticipate that the aranesp will be given with dialysis. Paraproteinemia workup neg-most suggestive of inflammation CT CAP reviewed, no report of findings suspicious for malignancy. Cont to follow labs. Current Visit: Yes Status: Acute Priority: High Code(s): D75.89 - OTHER SPECIFIED DISEASES OF BLOOD AND BLOOD-FORMING ORGANS SNOMED Code(s): 33917196
[2021-09-01] MEDS: diphenhydrAMINE 50 MG/ML 1 ML VIAL IVP PRN (15:42)
--- NOTE | 2021-09-01 16:17 | P.PN ---
Subjective Progress Note Date: 09/01/21 08/27/2021 Patient evaluated today during hemodialysis. Continues with persistent cough, which has been nonproductive. Continues on 2 L nasal cannula can wean as tolerated. Patient is afebrile, no acute events overnight. Blood sugars continued extreme highs and lows, patient was started back on insulin drip, was acetone positive, blood sugar in the 600s, currently anion gap 14. We will repeat labs if gap has closed we will transition patient to subcutaneous insulin. Echocardiogram was done yesterday which shows EF 55-60% with moderate to severe tricuspid regurg, trace mitral regurg, severe pulmonary hypertension and a moderate generalized pericardial effusion. Once medically stable at [facility] patient will continue with vancomycin for 2 weeks during dialysis recommended by ID. 08/28/2021 Patient evaluated today resting in bed. Hydralazine was discontinued as echo redemonstrated pericardial effusion. Sugars have been better controlled as patient continues on the insulin gtt. Pending repeat anion gap, once closed will transition patient. She states overall she is feeling better as her sugars have not been having extreme highs and lows and her blood pressure has been more controlled in the last 24 hours. Cough is slightly better today still non productive. Discussed keeping patient on gtt until anion gap is less than 10, will transition and monitor sugars and should be able to DC home. 08/29/2021 Blood pressure elevated into the 200s yesterday evening, has trended down some. Continues off hydralazine. labs today showing potassium of 6.0, sodium 127, creatinine 8.41, patient will undergo dialysis today. Patient was transitioned off the insulin gtt yesterday receieved 14 of levemir last night and short acting meal time coverage. Sugars have ranged from 77 to 269 today. Still with harsh non pruductive cough states that her lungs are quit sore from coughing. hgb today 6.1, 1 unit PRBC's will be transfused with dialysis. Patient is having a nose bleed with some clots, states this happens when her blood pressure is elevated. Ordered a one time dose of Afrin if nose bleed continues. Spiked temp of 101.1. Discussed IS patient agreeable to use. 08/30/2021 Evaluated during dialysis today. Blood sugar dropped into the 30s this morning, decreased levemir to 10 units HS and stopped the scheduled insulin, continue with scale as needed. Hemoglobin today 7.7 s/p 1 unit prbc and per patient nosebleed has stopped. Labs are better today as well, sodium 133, potassium 4.4, bun 45, creat 6.57. No more temps, cough seems improved today. Continues on IV vanco with dialysis and will continue for another 7 days after discharge. Hopefully should be able to DC tomorrow which patient agreeable with. 08/31/2021 Patient evaluated this morning. Blood sugar was 26 at that time patient did present with diaphoresis and felt shaky. Responded well to food and also requested IVP dextrose. She has been receiving Dilaudid every 3 hours which we did cut back to every 6. Chest xray today shows improving aeration. She has now been afebrile for 2 days. Nose bleed has improved. Blood pressure also elevated today. She was started on labetolol. Requesting to see if family can bring patient's home lantus to take tonight in place of levemir and see how blood sugars respond. Plan will be for discharge tomorrow after dialysis. Requested endocrine evaluation if available. Patient is a brittle diabetic and difficult to control sugars. 09/01/2021 Patient evaluated today on the 3rd floor she was transferred yesterday as she was hallucinating and sugars were uncontrolled. She was 26 in the morning and received dextrose in addition to eat, sugars were then 600 in the evening. She was given 8 of levemir and 10 units of novolog and sugars this morning 110. She is now in the 200s. Followed up today with nursing staff about using patients home lantus in place of levemir if someone can bring. Also requested endocrine consult, pending. Patient was started on labetolol for blood pressure, continues off hydralazine per neprho. Blood pressure today during dialysis dropped into the 80s. She is still coughing, report back spasms that are coming and going. States she usually takes tylenol for this. Dilaudid was decreased to every 6 hours. Patient was febrile throughout the evening up to 102.7. Abdominal/Pelvis CT ordered by ID for tomorrow. CRP and procalcitonin trending down. CBC and mag pending for today. Review of Systems Constitutional: Denied any fatigue denied any fever. Cardio vascular: denied any chest pain, palpitations Gastrointestinal: denied any nausea, vomiting, diarrhea Pulmonary: Denies shortness of breath, reports dry persistant cough Neurologic denied any new focal deficits All inpatient medications were reviewed and appropriate changes in these medications as dictated in the interval history and assessment and plan. PHYSICAL EXAMINATION: GENERAL: The patient is alert and oriented x3, ill appearing, fatigued. Pale. HEENT: Pupils are round and equally reacting to light. EOMI. No scleral icterus. No conjunctival pallor. Normocephalic, atraumatic. No pharyngeal erythema. No thyromegaly. CARDIOVASCULAR: S1 and S2 muffled PULMONARY: Chest is diminished bilaterally, no wheezing, crackles noted. ABDOMEN: Soft, nontender, nondistended, normoactive bowel sounds. No palpable organomegaly. dry cough on exam MUSCULOSKELETAL: No joint swelling or deformity. EXTREMITIES: No cyanosis, clubbing, or pedal edema. NEUROLOGICAL: Gross neurological examination did not reveal any focal deficits. SKIN: No rashes. Assessment: -Sepsis: Secondary to bilateral interstitial multifocal pneumonia, on IV antibiotics -End-stage renal disease, hemodialysis dependent monday -Hyponatremia secondary to chronic kidney disease -Hyperkalemia secondary to chronic renal disease -Anemia, chronic maintained on aranesp -Type 1 diabetes mellitus, uncontrolled with hyperglycemia as well as hypoglycemia, brittle -Pericardial effusion -Pleuritic chest pain and a parapneumonic effusion -Hypertension secondary to renal disease -Depression -DVT prophylaxis: subcutaneous heparin -GI prophylaxis -Full Code Plan Dialysis today Requesting patients home lantus be brought to hospital Levemir decreased to 8 units HS Abdominal/Pelvis CT tomorrow Follow up CBC/Mag today Repeat labs in AM Continue all other supportive care Continue to use IS Prognosis guarded The impression and plan of care has been dictated by Jael Keane, Nurse Practitioner as directed. Dr. Sudeep MD I have performed a history and physical examination and medical decision making of this patient, discussed the same with the dictator, and agree with the di ctators assessment and plan as written, documented as a scribe. Based on total visit time, I have performed more than 50% of this visit. Objective - Vital Signs Vital signs: Vital Signs Temp 97.5 F L 09/01/21 12:00 Pulse 73 09/01/21 12:00 Resp 20 09/01/21 12:00 BP 123/70 09/01/21 12:00 Pulse Ox 98 09/01/21 12:00 Intake & Output 08/31/21 09/01/21 09/01/21 18:59 06:59 18:59 Intake Total 10 Output Total 0 Balance 10 0 Weight 47.627 kg Intake: IV 10 Invasive Line 6 10 Output: Urine 0 Other: Voiding Method Toilet Toilet Toilet # Voids 1 0 0 # Bowel Movements 0 1 - Labs CBC & Chem 7: 08/30/21 05:33 08/31/21 22:53 Labs: Abnormal Lab Results - Last 24 Hours (Table) 08/31/21 08/31/21 08/31/21 Range/Units 15:52 16:56 20:14 Glucose (74-99) mg/dL POC Glucose (mg/dL) 247 H 357 H 576 H (75-99) mg/dL 08/31/21 08/31/21 08/31/21 Range/Units 20:16 22:41 22:43 Glucose (74-99) mg/dL POC Glucose (mg/dL) 534 H >600 H >600 H (75-99) mg/dL 08/31/21 09/01/21 09/01/21 Range/Units 22:53 01:19 02:39 Glucose 659 H* (74-99) mg/dL POC Glucose (mg/dL) 535 H 397 H (75-99) mg/dL 09/01/21 09/01/21 09/01/21 Range/Units 04:25 06:09 11:47 Glucose (74-99) mg/dL POC Glucose (mg/dL) 215 H 130 H 285 H (75-99) mg/dL Microbiology - Last 24 Hours (Table) 08/31/21 04:53 Blood Culture - Preliminary Blood No Growth after 24 hours Assessment and Plan Time with Patient: Less than 30
[2021-09-01 16:33] LABS: Anisocytosis Slight; Basophils % (A) 1 %; Eosinophils # (A) 0.2 k/uL (0-0.7); Eosinophils % (A) 9 %; HCT 22.7 % (34.0-46.0); HGB 7.9 gm/dL (11.4-16.0); Lymphocytes # (A) 0.2 k/uL (1.0-4.8); Lymphocytes % (A) 12 %; MCH 30.8 pg (25.0-35.0); MCHC 34.9 g/dL (31.0-37.0); Mean Platelet Volume 9.2; Monocytes # (A) 0.1 k/uL (0-1.0); Monocytes % (A) 6 %; Neutrophils # (A) 1.4 k/uL (1.3-7.7); Neutrophils % (A) 70 %; Poikilocytosis Slight; RBC 2.58 m/uL (3.80-5.40); RDW 16.3 % (11.5-15.5)
[2021-09-01 16:38] LABS: MCV 88.2 fL (80.0-100.0); Platelet Count 133 k/uL (150-450)
[2021-09-01 16:43] LABS: Albumin 3.5 g/dL (3.5-5.0); C Reactive Protein 4.8 mg/dL (<1.0); Calcium 8.2 mg/dL (8.4-10.2); Magnesium 2.1 mg/dL (1.6-2.3); Potassium 3.3 mmol/L (3.5-5.1); Total Bilirubin 0.5 mg/dL (0.2-1.3); Total Protein 6.3 g/dL (6.3-8.2)
[2021-09-01 17:03] LABS: Glucose,Whole Blood 121 mg/dL (75-99)
[2021-09-01 17:56] LABS: Basophils % (A) 2 %; Eosinophils # (A) 0.2 k/uL (0-0.7); Eosinophils % (A) 12 %; HCT 24.9 % (34.0-46.0); HGB 8.5 gm/dL (11.4-16.0); Lymphocytes # (A) 0.2 k/uL (1.0-4.8); Lymphocytes % (A) 9 %; MCH 29.7 pg (25.0-35.0); MCHC 34.2 g/dL (31.0-37.0); MCV 86.6 fL (80.0-100.0); Mean Platelet Volume 9.2; Monocytes # (A) 0.1 k/uL (0-1.0); Monocytes % (A) 3 %; Neutrophils # (A) 1.4 k/uL (1.3-7.7); Neutrophils % (A) 71 %; Platelet Count 121 k/uL (150-450); Poikilocytosis Slight; RBC 2.88 m/uL (3.80-5.40); RDW 15.9 % (11.5-15.5); WBC 1.9 k/uL (3.8-10.6)
--- NOTE | 2021-09-01 17:56 | P.PN ---
Subjective Progress Note Date: 08/31/21 Principal diagnosis: Pneumonia Patient is a 30-year-old female with a past medical history significant for end-stage renal disease on dialysis presented to the hospital w ith a fever of left lower chest pain concerning for pneumonia. On today's evaluation that is 08/31/2021, The patient remains to be afebrile today, the patient is breathing comfortably on room air, the patient still complaining of lower Chest pain from coughing but not bringing up sputum no nausea no vomiting no abdominal pain no diarrhea Objective - Vital Signs Vital signs: Vital Signs Temp 98.6 F 08/31/21 07:27 Pulse 76 08/31/21 08:32 Resp 14 08/31/21 08:56 BP 167/81 08/31/21 09:22 Pulse Ox 96 08/31/21 08:32 Intake & Output 08/30/21 08/31/21 08/31/21 18:59 06:59 18:59 Intake Total 300 Output Total 3800 Balance -3500 Weight 47.627 kg Intake: Hemodialysis 300 Output: Hemodialysis 3800 Other: Voiding Method Toilet Toilet Toilet # Voids 2 2 - Exam GENERAL DESCRIPTION: Middle-age female lying in bed in no distress RESPIRATORY SYSTEM: Unlabored breathing , decreased breath sounds at bases HEART: S1 S2 regular rate and rhythm , ABDOMEN: Soft , no tenderness EXTREMITIES: No edema feet - Labs CBC & Chem 7: 09/01/21 15:47 09/01/21 16:16 Labs: Abnormal Lab Results - Last 24 Hours (Table) 08/30/21 08/30/21 08/31/21 Range/Units 16:46 20:50 03:00 Sodium (135-145) mmol/L Chloride (96-109) mmol/L Anion Gap (10.00-18.00) mmol/L BUN (9.0-27.0) mg/dL Creatinine (0.6-1.5) mg/dL Est GFR (CKD-EPI)AfAm (60.0-200.0) Est GFR (CKD-EPI)NonAf (60.0-200.0) BUN/Creatinine Ratio (12.00-20.00) Ratio Glucose (70-110) mg/dL POC Glucose (mg/dL) 213 H 211 H 393 H (75-99) mg/dL C-Reactive Protein (0.00-0.80) mg/dL Procalcitonin (0.02-0.09) ng/mL 08/31/21 08/31/21 08/31/21 Range/Units 04:53 04:53 07:02 Sodium 132 L (135-145) mmol/L Chloride 90 L (96-109) mmol/L Anion Gap 19.30 H (10.00-18.00) mmol/L BUN 39.1 H (9.0-27.0) mg/dL Creatinine 6.3 H (0.6-1.5) mg/dL Est GFR (CKD-EPI)AfAm 9.4 L (60.0-200.0) Est GFR (CKD-EPI)NonAf 8.1 L (60.0-200.0) BUN/Creatinine Ratio 6.21 L (12.00-20.00) Ratio Glucose 355 H (70-110) mg/dL POC Glucose (mg/dL) 373 H (75-99) mg/dL C-Reactive Protein 6.80 H (0.00-0.80) mg/dL Procalcitonin 5.31 H (0.02-0.09) ng/mL 08/31/21 08/31/21 08/31/21 Range/Units 10:18 10:29 11:10 Sodium (135-145) mmol/L Chloride (96-109) mmol/L Anion Gap (10.00-18.00) mmol/L BUN (9.0-27.0) mg/dL Creatinine (0.6-1.5) mg/dL Est GFR (CKD-EPI)AfAm (60.0-200.0) Est GFR (CKD-EPI)NonAf (60.0-200.0) BUN/Creatinine Ratio (12.00-20.00) Ratio Glucose (70-110) mg/dL POC Glucose (mg/dL) 26 L 284 H 123 H (75-99) mg/dL C-Reactive Protein (0.00-0.80) mg/dL Procalcitonin (0.02-0.09) ng/mL Assessment and Plan (1) Sepsis due to pneumonia Current Visit: Yes Status: Acute Code(s): J18.9 - PNEUMONIA, UNSPECIFIED ORGANISM; A41.9 - SEPSIS, UNSPECIFIED ORGANISM SNOMED Code(s): 20319413 Plan: 1patient presented to hospital with fever in this patient also have a left lower rib cage pain which is pleuritic concerning for possible pneumonia and question of possible aspiration etiology recently completed course of oral Augmentin. 2 Patient did have a repeat cultures which are negative chest x-ray did not show any worsening pneumonia to continue with the vancomycin and monitor clinical course closely Time with Patient: Less than 30
--- NOTE | 2021-09-01 18:00 | P.PN ---
Subjective Progress Note Date: 09/01/21 Principal diagnosis: Pneumonia Patient is a 30-year-old female with a past medical history significant for end-stage renal disease on dialysis presented to the hospital w ith a fever of left lower chest pain concerning for pneumonia. On today's evaluation that is 09/01/2021, The patient did spike a fever last evening and the patient was hallucinating for the patient be transferred to the telemetry unit also have problem with a blood sugar, patient be complaining of l ower rib cage pain from coughing but not bringing up any sputum and a coming of some back spasm no nausea no vomiting and no diarrhea Objective - Vital Signs Vital signs: Vital Signs Temp 98.7 F 09/01/21 15:49 Pulse 73 09/01/21 15:49 Resp 20 09/01/21 15:49 BP 81/37 09/01/21 15:49 Pulse Ox 95 09/01/21 15:49 Intake & Output 08/31/21 09/01/21 09/01/21 18:59 06:59 18:59 Intake Total 10 Output Total 0 Balance 10 0 Weight 47.627 kg Intake: IV 10 Invasive Line 6 10 Output: Urine 0 Other: Voiding Method Toilet Toilet Toilet # Voids 1 0 0 # Bowel Movements 0 1 - Exam GENERAL DESCRIPTION: Middle-age female lying in bed in no distress RESPIRATORY SYSTEM: Unlabored breathing , decreased breath sounds at bases HEART: S1 S2 regular rate and rhythm , ABDOMEN: Soft , no tenderness EXTREMITIES: No edema feet - Labs CBC & Chem 7: 09/01/21 17:18 09/01/21 16:16 Labs: Abnormal Lab Results - Last 24 Hours (Table) 08/31/21 08/31/21 08/31/21 Range/Units 20:14 20:16 22:41 WBC (3.8-10.6) k/uL RBC (3.80-5.40) m/uL Hgb (11.4-16.0) gm/dL Hct (34.0-46.0) % RDW (11.5-15.5) % Plt Count (150-450) k/uL Lymphocytes # (1.0-4.8) k/uL Potassium (3.5-5.1) mmol/L BUN (7-17) mg/dL Creatinine (0.52-1.04) mg/dL Glucose (74-99) mg/dL POC Glucose (mg/dL) 576 H 534 H >600 H (75-99) mg/dL Calcium (8.4-10.2) mg/dL Alkaline Phosphatase (38-126) U/L C-Reactive Protein (<1.0) mg/dL 08/31/21 08/31/21 09/01/21 Range/Units 22:43 22:53 01:19 WBC (3.8-10.6) k/uL RBC (3.80-5.40) m/uL Hgb (11.4-16.0) gm/dL Hct (34.0-46.0) % RDW (11.5-15.5) % Plt Count (150-450) k/uL Lymphocytes # (1.0-4.8) k/uL Potassium (3.5-5.1) mmol/L BUN (7-17) mg/dL Creatinine (0.52-1.04) mg/dL Glucose 659 H* (74-99) mg/dL POC Glucose (mg/dL) >600 H 535 H (75-99) mg/dL Calcium (8.4-10.2) mg/dL Alkaline Phosphatase (38-126) U/L C-Reactive Protein (<1.0) mg/dL 09/01/21 09/01/21 09/01/21 Range/Units 02:39 04:25 06:09 WBC (3.8-10.6) k/uL RBC (3.80-5.40) m/uL Hgb (11.4-16.0) gm/dL Hct (34.0-46.0) % RDW (11.5-15.5) % Plt Count (150-450) k/uL Lymphocytes # (1.0-4.8) k/uL Potassium (3.5-5.1) mmol/L BUN (7-17) mg/dL Creatinine (0.52-1.04) mg/dL Glucose (74-99) mg/dL POC Glucose (mg/dL) 397 H 215 H 130 H (75-99) mg/dL Calcium (8.4-10.2) mg/dL Alkaline Phosphatase (38-126) U/L C-Reactive Protein (<1.0) mg/dL 09/01/21 09/01/21 09/01/21 Range/Units 11:47 15:47 16:16 WBC 2.0 L (3.8-10.6) k/uL RBC 2.58 L (3.80-5.40) m/uL Hgb 7.9 L (11.4-16.0) gm/dL Hct 22.7 L (34.0-46.0) % RDW 16.3 H (11.5-15.5) % Plt Count 133 L D (150-450) k/uL Lymphocytes # 0.2 L (1.0-4.8) k/uL Potassium 3.3 L (3.5-5.1) mmol/L BUN 28 H (7-17) mg/dL Creatinine 3.71 H (0.52-1.04) mg/dL Glucose 120 H (74-99) mg/dL POC Glucose (mg/dL) 285 H (75-99) mg/dL Calcium 8.2 L (8.4-10.2) mg/dL Alkaline Phosphatase 154 H (38-126) U/L C-Reactive Protein 4.8 H (<1.0) mg/dL 09/01/21 09/01/21 Range/Units 16:43 17:18 WBC 1.9 L (3.8-10.6) k/uL RBC 2.88 L (3.80-5.40) m/uL Hgb 8.5 L (11.4-16.0) gm/dL Hct 24.9 L (34.0-46.0) % RDW 15.9 H (11.5-15.5) % Plt Count 121 L (150-450) k/uL Lymphocytes # 0.2 L (1.0-4.8) k/uL Potassium (3.5-5.1) mmol/L BUN (7-17) mg/dL Creatinine (0.52-1.04) mg/dL Glucose (74-99) mg/dL POC Glucose (mg/dL) 121 H (75-99) mg/dL Calcium (8.4-10.2) mg/dL Alkaline Phosphatase (38-126) U/L C-Reactive Protein (<1.0) mg/dL Microbiology - Last 24 Hours (Table) 04/05/22 04:53 Blood Culture - Preliminary Blood No Growth after 24 hours Assessment and Plan (1) Sepsis due to pneumonia Current Visit: Yes Status: Acute Code(s): J18.9 - PNEUMONIA, UNSPECIFIED ORGANISM; A41.9 - SEPSIS, UNSPECIFIED ORGANISM SNOMED Code(s): 25094907 Plan: 1patient presented to hospital with fever in this patient also have a left lower rib cage pain which is pleuritic concerning for possible pneumonia and question of possible aspiration etiology recently completed course of oral Augmentin. 2 Patient did have a repeat cultures which are negative chest x-ray did not show any worsening pneumonia however the patient is spiking fever again and also noticed to have significant leukopenia, the patient's CRP is trending down though with a question of possible hematological source for her fever will discuss further with hematology oncology as the patient may benefit from a bone marrow evaluation, we will also check a CT of abdominal pelvis to complete the workup continue with empiric vancomycin at this point prognosis remains to be guarded Time with Patient: Less than 30
[2021-09-01] MEDS: lisinopriL 20 MG TAB PO SCH (18:28)
[2021-09-01 20:00] LABS: Glucose,Whole Blood 436 mg/dL (75-99)
[2021-09-01] MEDS: INSULIN DETEMIR (LEVEMIR) 100 UNIT/ML SYR SQ SCH (21:25)
[2021-09-02] MEDS: LABETALOL 200 MG TAB PO SCH ×3 (00:46→16:42)
[2021-09-02] MEDS: ISOSORBIDE MONONITRATE ER 30 MG TAB.ER.24H PO SCH ×2 (00:46→22:35)
[2021-09-02] MEDS: cloNIDine HCL 0.1 MG TAB PO SCH ×4 (00:46→22:34)
[2021-09-02 02:36] LABS: Glucose,Whole Blood 521 mg/dL (75-99)
[2021-09-02] MEDS ORDERED: INSULIN ASPART (NovoLOG) 100 UNIT/ML VIAL SQ ONE (02:48)
[2021-09-02] MEDS: HYDROmorphone 0.5 MG/0.5 ML SYRINGE IVP PRN ×3 (02:57→16:06)
[2021-09-02] MEDS: LORazepam 2 MG/ML INJ IV PRN ×2 (03:48→13:14)
[2021-09-02 06:07] LABS: Glucose,Whole Blood 173 mg/dL (75-99)
[2021-09-02] MEDS: INSULIN ASPART (NovoLOG) 100 UNIT/ML VIAL SQ SCH ×5 (06:21→22:31)
[2021-09-02] MEDS: diphenhydrAMINE 50 MG/ML 1 ML VIAL IVP PRN ×2 (06:21→17:39)
[2021-09-02 07:22] LABS: HCT 24.6 % (34.0-46.0); HGB 8.3 gm/dL (11.4-16.0); MCH 29.9 pg (25.0-35.0); MCHC 33.8 g/dL (31.0-37.0); MCV 88.4 fL (80.0-100.0); Mean Platelet Volume 9.3; Platelet Count 137 k/uL (150-450); Poikilocytosis Slight; RBC 2.78 m/uL (3.80-5.40); WBC 2.3 k/uL (3.8-10.6)
--- NOTE | 2021-09-02 09:02 | CT ---
EXAMINATION TYPE: CT abdomen pelvis wo con DATE OF EXAM: 09/02/2021 COMPARISON: 08/15/2021 HISTORY: 30-year-old female Fever CT DLP: 335.7 mGycm. Automated exposure control for dose reduction was used. TECHNIQUE: Contiguous axial scanning of the abdomen and pelvis without IV contrast. Coronal and sagit yumiko reconstructions performed. FINDINGS: Moderate cardiopericardial effusion persists measuring up to 2.2 cm. There may be a tiny hiatal herni a. Significant improvement in aeration at the lung bases compared to prior exam. Liver mildly enlarged at 18.[address], no focal lesion is seen. Patient status post cho lecystectomy. Probably ingested solid material within the stomach. Additional further distention of the stomach fro m ingested oral contrast. Oral contrast material has reached the splenic flexure. Adrenal glands, spleen with inferior splenule, and pancreas show no gross abnormality by a noncontras t CT. The kidneys are somewhat small with punctate 2 mm nonobstructive calculi in both sides. No hydronephr osis. Query any underlying chronic kidney disease as they measure up to only 8 to 9 cm each. The tiara mesentery and mild anasarca change likely secondary to third spacing. No dilated small bowel, free fluid, or free air. Scattered mild small bowel wall thickening and segme ntal mild colonic wall thickening along the right side of the colon. There is moderate stool burden. No pericolonic inflammatory change. Numerous scattered nonenlarged to borderline sized mesenteric lymph nodes throughout measuring up to 6 mm. Bladder is collapsed. Uterus anteverted. Both ovaries are visualized. Pelvic phleboliths noted. No ab normal fluid collection in the pelvis. Some prominent inguinal lymph nodes measuring up to 1.2 cm kal rt axis probably reactive, unchanged from recent prior. Bones: No osseous destructive process. IMPRESSION: 1. Ongoing moderate pericardial effusion measuring up to 2.2 cm thick. 2. Significant interval improvement in aeration at the visualized lung bases. 3. Prominent ingested solid material within the stomach. Further distention due to the ingested cont rast material. Oral contrast has reached the splenic flexure of the colon. Moderate overall stool bur den. 4. Suspect there is spacing with mild generalized anasarca changes. 5. There appear to be some segments of small bowel wall thickening and additional mild wall thickeni ng along the right side of the colon. Enterocolitis not excluded. 6. Small kidneys, query underlying chronic kidney disease. Punctate 2 mm bilateral nonobstructive re nal calculi.
[2021-09-02 09:31] LABS: Glucose,Whole Blood 98 mg/dL (75-99)
[2021-09-02] MEDS: HEPARIN SODIUM,PORCINE/PF 5,000 UNIT/0.5 ML SYRINGE SQ SCH ×3 (09:34→22:30)
[2021-09-02] MEDS: ASPIRIN 81 MG PO SCH (09:35)
[2021-09-02] MEDS: CYANOCOBALAMIN 500 MCG TAB PO SCH (09:35)
[2021-09-02] MEDS: ESCITALOPRAM 20 MG TAB PO SCH (09:35)
[2021-09-02] MEDS: PANTOPRAZOLE 40 MG TABLET PO SCH ×2 (09:35→22:35)
[2021-09-02] MEDS: SEVELAMER 800 MG TAB PO SCH ×3 (09:48→17:39)
[2021-09-02] MEDS: carvediloL 12.5 MG TAB PO SCH ×2 (10:09→17:48)
[2021-09-02] MEDS: lisinopriL 20 MG TAB PO SCH (10:09)
[2021-09-02 10:15] LABS: Basophils # (M) 0.05 k/uL (0-0.2); Eosinophils # (M) 0.12 k/uL (0-0.7); Lymphocytes # (M) 0.55 k/uL (1.0-4.8); Monocytes # (M) 0.44 k/uL (0-1.0); Neutrophils # (M) 1.15 k/uL (1.3-7.7); Neutrophils % (M) 50 %; Nucleated Red Blood Cells 0 /100 WBC (0-0); Total Cells Counted 100
[2021-09-02] MEDS ORDERED: VANCOMYCIN 750 MG in SODIUM CHLORIDE 0.9% 250 ML IVPB ONE (10:30)
[2021-09-02 11:35] LABS: Glucose,Whole Blood 192 mg/dL (75-99)
[2021-09-02] MEDS: DARBEPOETIN ALFA 60 MCG/0.3 ML SYRINGE SQ SCH (13:02)
--- NOTE | 2021-09-02 13:43 | P.PN ---
Subjective Patient is seen for follow-up for end-stage renal disease. She was admitted to the hospital with fever and cough and has been treated for pneumonia. She has also had volume overload with uncontrolled blood pressures which improved with dialysis and ultrafiltration. Blood sugars have been difficult to control and patient had been maintained on insulin drip. Patient is sitting up in bed she is comfortable. Blood sugars remained fluctuating. Blood pressure is much better. Staying on the lower side. Blood pressure medications have been held. Tolerating oral intake. Objective - Vital Signs Vital signs: Vital Signs Temp 98.4 F 09/02/21 13:10 Pulse 68 09/02/21 13:10 Resp 20 09/02/21 13:10 BP 113/55 09/02/21 13:10 Pulse Ox 97 09/02/21 13:10 Intake & Output 09/01/21 09/02/21 09/02/21 18:59 06:59 18:59 Intake Total 270 10 Output Total 3000 100 Balance -3000 270 -90 Weight 47.627 kg Intake: IV 20 10 Invasive Line 6 20 10 Oral 250 Output: Urine 0 100 Hemodialysis 3000 Other: Voiding Method Toilet Toilet Toilet # Voids 0 0 # Bowel Movements 1 0 - Exam Awake, comfortable, not in any acute distress Abdomen is soft Examination lower extremities shows no significant edema HAND STITCHER exam grossly intact - Labs CBC & Chem 7: 09/02/21 06:37 09/01/21 16:16 Labs: Abnormal Lab Results - Last 24 Hours (Table) 08/24/21 09/01/21 09/01/21 Range/Units 06:56 15:47 16:16 WBC 2.0 L (3.8-10.6) k/uL RBC 2.58 L (3.80-5.40) m/uL Hgb 7.9 L (11.4-16.0) gm/dL Hct 22.7 L (34.0-46.0) % RDW 16.3 H (11.5-15.5) % Plt Count 133 L D (150-450) k/uL Neutrophils # (Manual) (1.3-7.7) k/uL Lymphocytes # 0.2 L (1.0-4.8) k/uL Lymphocytes # (Manual) (1.0-4.8) k/uL Potassium 3.3 L (3.5-5.1) mmol/L BUN 28 H (7-17) mg/dL Creatinine 3.71 H (0.52-1.04) mg/dL Glucose 120 H (74-99) mg/dL POC Glucose (mg/dL) (75-99) mg/dL Calcium 8.2 L (8.4-10.2) mg/dL Erythropoietin 110.91 H (2.00-30.00) mIU/mL Alkaline Phosphatase 154 H (38-126) U/L C-Reactive Protein 4.8 H (<1.0) mg/dL 09/01/21 09/01/21 09/01/21 Range/Units 16:43 17:18 19:56 WBC 1.9 L (3.8-10.6) k/uL RBC 2.88 L (3.80-5.40) m/uL Hgb 8.5 L (11.4-16.0) gm/dL Hct 24.9 L (34.0-46.0) % RDW 15.9 H (11.5-15.5) % Plt Count 121 L (150-450) k/uL Neutrophils # (Manual) (1.3-7.7) k/uL Lymphocytes # 0.2 L (1.0-4.8) k/uL Lymphocytes # (Manual) (1.0-4.8) k/uL Potassium (3.5-5.1) mmol/L BUN (7-17) mg/dL Creatinine (0.52-1.04) mg/dL Glucose (74-99) mg/dL POC Glucose (mg/dL) 121 H 436 H (75-99) mg/dL Calcium (8.4-10.2) mg/dL Erythropoietin (2.00-30.00) mIU/mL Alkaline Phosphatase (38-126) U/L C-Reactive Protein (<1.0) mg/dL 09/02/21 09/02/21 09/02/21 Range/Units 02:33 06:05 06:37 WBC 2.3 L (3.8-10.6) k/uL RBC 2.78 L (3.80-5.40) m/uL Hgb 8.3 L (11.4-16.0) gm/dL Hct 24.6 L (34.0-46.0) % RDW 16.0 H (11.5-15.5) % Plt Count 137 L (150-450) k/uL Neutrophils # (Manual) 1.15 L (1.3-7.7) k/uL Lymphocytes # (1.0-4.8) k/uL Lymphocytes # (Manual) 0.55 L (1.0-4.8) k/uL Potassium (3.5-5.1) mmol/L BUN (7-17) mg/dL Creatinine (0.52-1.04) mg/dL Glucose (74-99) mg/dL POC Glucose (mg/dL) 521 H 173 H (75-99) mg/dL Calcium (8.4-10.2) mg/dL Erythropoietin (2.00-30.00) mIU/mL Alkaline Phosphatase (38-126) U/L C-Reactive Protein (<1.0) mg/dL 09/02/21 Range/Units 11:32 WBC (3.8-10.6) k/uL RBC (3.80-5.40) m/uL Hgb (11.4-16.0) gm/dL Hct (34.0-46.0) % RDW (11.5-15.5) % Plt Count (150-450) k/uL Neutrophils # (Manual) (1.3-7.7) k/uL Lymphocytes # (1.0-4.8) k/uL Lymphocytes # (Manual) (1.0-4.8) k/uL Potassium (3.5-5.1) mmol/L BUN (7-17) mg/dL Creatinine (0.52-1.04) mg/dL Glucose (74-99) mg/dL POC Glucose (mg/dL) 192 H (75-99) mg/dL Calcium (8.4-10.2) mg/dL Erythropoietin (2.00-30.00) mIU/mL Alkaline Phosphatase (38-126) U/L C-Reactive Protein (<1.0) mg/dL Microbiology - Last 24 Hours (Table) 08/31/21 04:53 Blood Culture - Preliminary Blood No Growth after 48 hours Assessment and Plan Assessment: 1. End-stage renal disease on hemodialysis on a Monday sche[place] 2. Fluid overload, improved 3. Left lower lobe pneumonia 4. Recent hospitalization for fluid overload with large pericardial effusion status post aggressive ultrafiltration of about 12 L during her stay. Antihistone antibodies were positive these are associated with use of minoxidil and hydralazine causing pericardial effusion/pericarditis. However the pericardial effusion was much smaller on the CT and I planned to continue with hydralazine but ECHO report from yesterday shows moderate sized pericardial effusion again. Therefore hydralazine was discontinued 5. Hypertension partly volume sensitive improves with aggressive ultrafiltration. Will d/c hydralazine. Labetalol added 6. Anemia, no active bleeding noted status post packed RBCs transfusion, maintained on Aranesp, 7. Uncontrolled blood sugars, currently on insulin drip and much improved. 8. Hyperkalemia, associated with end-stage renal disease as well as recent increase in the dose of CHANDA inhibitor's due to uncontrolled hypertension. Plan: Hemodialysis in a.m. Continue to hold blood pressure meds for systolic blood pressure less than 140 predialysis. Encourage increased oral intake Goal UF about 3 L Jen
[2021-09-02] MEDS: MEGESTROL 400 MG/10 ML CUP PO SCH (16:06)
[2021-09-02] MEDS: BENZONATATE 100 MG CAP PO PRN (16:07)
[2021-09-02 16:34] LABS: Glucose,Whole Blood 239 mg/dL (75-99)
[2021-09-02 20:04] LABS: Glucose,Whole Blood 258 mg/dL (75-99)
[2021-09-02] MEDS: INSULIN DETEMIR (LEVEMIR) 100 UNIT/ML SYR SQ SCH (22:31)
[2021-09-02] MEDS: MELATONIN 5 MG TABLET PO PRN (22:32)
[2021-09-03] MEDS: HYDROmorphone 0.5 MG/0.5 ML SYRINGE IVP PRN ×4 (00:27→21:32)
[2021-09-03 02:16] LABS: Glucose,Whole Blood 247 mg/dL (75-99)
[2021-09-03] MEDS: LORazepam 2 MG/ML INJ IV PRN ×2 (02:19→09:27)
[2021-09-03] MEDS: diphenhydrAMINE 25 MG CAP PO PRN ×2 (04:41→23:20)
[2021-09-03] MEDS: diphenhydrAMINE 50 MG/ML 1 ML VIAL IVP PRN (04:45)
[2021-09-03 06:07] LABS: Glucose,Whole Blood 220 mg/dL (75-99)
[2021-09-03] MEDS: LABETALOL 200 MG TAB PO SCH ×4 (06:21→21:32)
[2021-09-03] MEDS: carvediloL 12.5 MG TAB PO SCH ×2 (06:53→18:02)
[2021-09-03] MEDS: SEVELAMER 800 MG TAB PO SCH ×3 (06:53→18:02)
[2021-09-03] MEDS: INSULIN ASPART (NovoLOG) 100 UNIT/ML VIAL SQ SCH ×4 (06:54→21:34)
[2021-09-03] MEDS: cloNIDine HCL 0.1 MG TAB PO SCH ×3 (09:20→20:49)
[2021-09-03] MEDS: lisinopriL 20 MG TAB PO SCH (09:21)
[2021-09-03] MEDS: ESCITALOPRAM 20 MG TAB PO SCH (09:26)
[2021-09-03] MEDS: PANTOPRAZOLE 40 MG TABLET PO SCH ×2 (09:26→20:49)
[2021-09-03] MEDS: ASPIRIN 81 MG PO SCH (09:26)
[2021-09-03] MEDS: HEPARIN SODIUM,PORCINE/PF 5,000 UNIT/0.5 ML SYRINGE SQ SCH ×2 (09:26→20:45)
[2021-09-03] MEDS: CYANOCOBALAMIN 500 MCG TAB PO SCH (09:26)
[2021-09-03] MEDS: MEGESTROL 400 MG/10 ML CUP PO SCH (09:41)
--- NOTE | 2021-09-03 10:45 | P.PN ---
Subjective Patient is seen for follow-up for end-stage renal disease. She was admitted to the hospital with fever and cough and has been treated for pneumonia. She has also had volume overload with uncontrolled blood pressures which improved with dialysis and ultrafiltration. Blood sugars have been difficult to control and patient had been maintained on insulin drip. Patient is laying in bed, she is comfortable. Blood sugars are improved. Blood pressure is much better. Staying on the lower side. Blood pressure medications have been held. Tolerating oral intake. Scheduled for hemodialysis today Objective - Vital Signs Vital signs: Vital Signs Temp 98.6 F 09/03/21 09:25 Pulse 74 09/03/21 09:25 Resp 18 09/03/21 09:25 BP 183/90 09/03/21 09:25 Pulse Ox 96 09/03/21 09:25 Intake & Output 09/02/21 09/03/21 09/03/21 18:59 06:59 18:59 Intake Total 980 180 Output Total 100 Balance 880 180 Weight 47.627 kg Intake: IV 20 Invasive Line 6 20 Oral 960 180 Output: Urine 100 Other: Voiding Method Toilet Toilet # Voids 1 - Exam Awake, comfortable, not in any acute distress Examination of the heart S1 and S2 Examination of the lungs bilateral breath sounds are heard Abdomen is soft Examination lower extremities shows no significant edema BURNER OPERATOR exam grossly intact - Labs CBC & Chem 7: 09/02/21 06:37 09/01/21 16:16 Labs: Abnormal Lab Results - Last 24 Hours (Table) 08/24/21 09/02/21 09/02/21 Range/Units 06:56 11:32 16:30 POC Glucose (mg/dL) 192 H 239 H (75-99) mg/dL Erythropoietin 110.91 H (2.00-30.00) mIU/mL 09/02/21 09/03/21 09/03/21 Range/Units 20:01 02:13 06:06 POC Glucose (mg/dL) 258 H 247 H 220 H (75-99) mg/dL Erythropoietin (2.00-30.00) mIU/mL Microbiology - Last 24 Hours (Table) 08/31/21 04:53 Blood Culture - Preliminary Blood No Growth after 72 hours 09/01/21 15:47 Blood Culture - Preliminary Blood No Growth after 24 hours Assessment and Plan Assessment: 1. End-stage renal disease on hemodialysis on a Monday [place] 2. Fluid overload, improved 3. Left lower lobe pneumonia 4. Recent hospitalization for fluid overload with large pericardial effusion status post aggressive ultrafiltration of about 12 L during her stay. Antihistone antibodies were positive these are associated with use of minoxidil and hydralazine causing pericardial effusion/pericarditis. However the pericardial effusion was much smaller on the CT and I planned to continue with hydralazine but ECHO report from yesterday shows moderate sized pericardial effusion again. Therefore hydralazine was discontinued 5. Hypertension partly volume sensitive improves with aggressive ultrafiltration. Will d/c hydralazine. Labetalol added. Currently improved 6. Anemia, no active bleeding noted status post packed RBCs transfusion, maintained on Aranesp, 7. Uncontrolled blood sugars, currently on insulin drip and much improved. 8. Hyperkalemia, associated with end-stage renal disease as well as recent increase in the dose of CHANDA inhibitor's due to uncontrolled hypertension. Plan: Hemodialysis today with goal UF of about 3-4 L as tolerated. May give morning dose of Coreg and will proceed with other blood pressure medicines depending on the blood pressure post dialysis.
[2021-09-03 11:44] LABS: Glucose,Whole Blood 117 mg/dL (75-99)
--- NOTE | 2021-09-03 12:25 | P.PN ---
Subjective Progress Note Date: 09/02/21 30-year-old female came in with complaints of bilateral rib cage pain, fevers which started on Monday. Patient had an abdominal CT which showed a pneumonic infiltrate in the right lung along with some parapneumonic effusion. Patient was started on broad-spectrum antibiotics vancomycin and cefepime treating for healthcare associated pneumonia patient was recently hospitalized for couple weeks ago at that time patient was treated for intra-abdominal infection at that time. Patient has history of end-stage renal disease hemodialysis dependent. Patient has mild leukocytosis with a white blood cell count of 10 patient does have history of type 1 diabetes mellitus and diabetic nephropathy which led to hemodialysis dependence. Objective - Vital Signs Vital signs: Vital Signs Temp 98.1 F 09/02/21 09:35 Pulse 68 09/02/21 09:35 Resp 18 09/02/21 09:35 BP 106/45 09/02/21 09:35 Pulse Ox 97 09/02/21 09:35 Intake & Output 09/01/21 09/02/21 09/02/21 18:59 06:59 18:59 Intake Total 270 10 Output Total 3000 100 Balance -3000 270 -90 Weight 47.627 kg Intake: IV 20 10 Invasive Line 6 20 10 Oral 250 Output: Urine 0 100 Hemodialysis 3000 Other: Voiding Method Toilet Toilet Toilet # Voids 0 0 # Bowel Movements 1 0 - Exam GENERAL: The patient is alert and oriented x3, ill appearing, fatigued. Pale. HEENT: Pupils are round and equally reacting to light. EOMI. No scleral icterus. No conjunctival pallor. Normocephalic, atraumatic. No pharyngeal erythema. No thyromegaly. CARDIOVASCULAR: S1 and S2 muffled PULMONARY: Chest is diminished bilaterally, no wheezing, crackles noted. ABDOMEN: Soft, nontender, nondistended, normoactive bowel sounds. No palpable organomegaly. dry cough on exam MUSCULOSKELETAL: No joint swelling or deformity. EXTREMITIES: No cyanosis, clubbing, or pedal edema. NEUROLOGICAL: Gross neurological examination did not reveal any focal deficits. SKIN: No rashes. - Labs CBC & Chem 7: 09/02/21 06:37 09/01/21 16:16 Labs: Abnormal Lab Results - Last 24 Hours (Table) 08/24/21 09/01/21 09/01/21 Range/Units 06:56 15:47 16:16 WBC 2.0 L (3.8-10.6) k/uL RBC 2.58 L (3.80-5.40) m/uL Hgb 7.9 L (11.4-16.0) gm/dL Hct 22.7 L (34.0-46.0) % RDW 16.3 H (11.5-15.5) % Plt Count 133 L D (150-450) k/uL Neutrophils # (Manual) (1.3-7.7) k/uL Lymphocytes # 0.2 L (1.0-4.8) k/uL Lymphocytes # (Manual) (1.0-4.8) k/uL Potassium 3.3 L (3.5-5.1) mmol/L BUN 28 H (7-17) mg/dL Creatinine 3.71 H (0.52-1.04) mg/dL Glucose 120 H (74-99) mg/dL POC Glucose (mg/dL) (75-99) mg/dL Calcium 8.2 L (8.4-10.2) mg/dL Erythropoietin 110.91 H (2.00-30.00) mIU/mL Alkaline Phosphatase 154 H (38-126) U/L C-Reactive Protein 4.8 H (<1.0) mg/dL 09/01/21 09/01/21 09/01/21 Range/Units 16:43 17:18 19:56 WBC 1.9 L (3.8-10.6) k/uL RBC 2.88 L (3.80-5.40) m/uL Hgb 8.5 L (11.4-16.0) gm/dL Hct 24.9 L (34.0-46.0) % RDW 15.9 H (11.5-15.5) % Plt Count 121 L (150-450) k/uL Neutrophils # (Manual) (1.3-7.7) k/uL Lymphocytes # 0.2 L (1.0-4.8) k/uL Lymphocytes # (Manual) (1.0-4.8) k/uL Potassium (3.5-5.1) mmol/L BUN (7-17) mg/dL Creatinine (0.52-1.04) mg/dL Glucose (74-99) mg/dL POC Glucose (mg/dL) 121 H 436 H (75-99) mg/dL Calcium (8.4-10.2) mg/dL Erythropoietin (2.00-30.00) mIU/mL Alkaline Phosphatase (38-126) U/L C-Reactive Protein (<1.0) mg/dL 09/02/21 09/02/21 09/02/21 Range/Units 02:33 06:05 06:37 WBC 2.3 L (3.8-10.6) k/uL RBC 2.78 L (3.80-5.40) m/uL Hgb 8.3 L (11.4-16.0) gm/dL Hct 24.6 L (34.0-46.0) % RDW 16.0 H (11.5-15.5) % Plt Count 137 L (150-450) k/uL Neutrophils # (Manual) 1.15 L (1.3-7.7) k/uL Lymphocytes # (1.0-4.8) k/uL Lymphocytes # (Manual) 0.55 L (1.0-4.8) k/uL Potassium (3.5-5.1) mmol/L BUN (7-17) mg/dL Creatinine (0.52-1.04) mg/dL Glucose (74-99) mg/dL POC Glucose (mg/dL) 521 H 173 H (75-99) mg/dL Calcium (8.4-10.2) mg/dL Erythropoietin (2.00-30.00) mIU/mL Alkaline Phosphatase (38-126) U/L C-Reactive Protein (<1.0) mg/dL 09/02/21 Range/Units 11:32 WBC (3.8-10.6) k/uL RBC (3.80-5.40) m/uL Hgb (11.4-16.0) gm/dL Hct (34.0-46.0) % RDW (11.5-15.5) % Plt Count (150-450) k/uL Neutrophils # (Manual) (1.3-7.7) k/uL Lymphocytes # (1.0-4.8) k/uL Lymphocytes # (Manual) (1.0-4.8) k/uL Potassium (3.5-5.1) mmol/L BUN (7-17) mg/dL Creatinine (0.52-1.04) mg/dL Glucose (74-99) mg/dL POC Glucose (mg/dL) 192 H (75-99) mg/dL Calcium (8.4-10.2) mg/dL Erythropoietin (2.00-30.00) mIU/mL Alkaline Phosphatase (38-126) U/L C-Reactive Protein (<1.0) mg/dL Microbiology - Last 24 Hours (Table) 08/31/21 04:53 Blood Culture - Preliminary Blood No Growth after 48 hours Assessment and Plan Assessment: -Sepsis: Secondary to bilateral interstitial multifocal pneumonia, on IV antibiotics -End-stage renal disease, hemodialysis dependent monday -Hyponatremia secondary to chronic kidney disease -Hyperkalemia secondary to chronic renal disease -Anemia, chronic maintained on aranesp -Type 1 diabetes mellitus, uncontrolled with hyperglycemia as well as hypoglycemia, brittle -Pericardial effusion -Pleuritic chest pain and a parapneumonic effusion -Hypertension secondary to renal disease -Depression -DVT prophylaxis: subcutaneous heparin -GI prophylaxis -Full Code Plan Dialysis today Requesting patients home lantus be brought to hospital Levemir decreased to 8 units HS Abdominal/Pelvis CT tomorrow Follow up CBC/Mag today Repeat labs in AM Continue all other supportive care Continue to use IS Prognosis guarded
--- NOTE | 2021-09-03 16:22 | P.PN ---
Subjective Progress Note Date: 09/02/21 Principal diagnosis: Pneumonia Patient is a 30-year-old female with a past medical history significant for end-stage renal disease on dialysis presented to the hospital w ith a fever of left lower chest pain concerning for pneumonia. On today's evaluation that is 09/02/2021, The patient did not have any further fevers, she is breathing comfortably still complaining of lower rib cage chest pain from coughing but no worsening cough or sputum production no abdominal pain and no diarrhea Objective - Vital Signs Vital signs: Vital Signs Temp 98.1 F 09/02/21 09:35 Pulse 68 09/02/21 09:35 Resp 18 09/02/21 09:35 BP 106/45 09/02/21 09:35 Pulse Ox 97 09/02/21 09:35 Intake & Output 09/01/21 09/02/21 09/02/21 18:59 06:59 18:59 Intake Total 270 10 Output Total 3000 100 Balance -3000 270 -90 Intake: IV 20 10 Invasive Line 6 20 10 Oral 250 Output: Urine 0 100 Hemodialysis 3000 Other: Voiding Method Toilet Toilet Toilet # Voids 0 0 # Bowel Movements 1 0 - Exam GENERAL DESCRIPTION: Middle-age female lying in bed in no distress RESPIRATORY SYSTEM: Unlabored breathing , decreased breath sounds at bases HEART: S1 S2 regular rate and rhythm , ABDOMEN: Soft , no tenderness EXTREMITIES: No edema feet - Labs CBC & Chem 7: 09/02/21 06:37 09/01/21 16:16 Labs: Abnormal Lab Results - Last 24 Hours (Table) 09/01/21 09/01/21 09/01/21 Range/Units 11:47 15:47 16:16 WBC 2.0 L (3.8-10.6) k/uL RBC 2.58 L (3.80-5.40) m/uL Hgb 7.9 L (11.4-16.0) gm/dL Hct 22.7 L (34.0-46.0) % RDW 16.3 H (11.5-15.5) % Plt Count 133 L D (150-450) k/uL Neutrophils # (Manual) (1.3-7.7) k/uL Lymphocytes # 0.2 L (1.0-4.8) k/uL Lymphocytes # (Manual) (1.0-4.8) k/uL Potassium 3.3 L (3.5-5.1) mmol/L BUN 28 H (7-17) mg/dL Creatinine 3.71 H (0.52-1.04) mg/dL Glucose 120 H (74-99) mg/dL POC Glucose (mg/dL) 285 H (75-99) mg/dL Calcium 8.2 L (8.4-10.2) mg/dL Alkaline Phosphatase 154 H (38-126) U/L C-Reactive Protein 4.8 H (<1.0) mg/dL 09/01/21 09/01/21 09/01/21 Range/Units 16:43 17:18 19:56 WBC 1.9 L (3.8-10.6) k/uL RBC 2.88 L (3.80-5.40) m/uL Hgb 8.5 L (11.4-16.0) gm/dL Hct 24.9 L (34.0-46.0) % RDW 15.9 H (11.5-15.5) % Plt Count 121 L (150-450) k/uL Neutrophils # (Manual) (1.3-7.7) k/uL Lymphocytes # 0.2 L (1.0-4.8) k/uL Lymphocytes # (Manual) (1.0-4.8) k/uL Potassium (3.5-5.1) mmol/L BUN (7-17) mg/dL Creatinine (0.52-1.04) mg/dL Glucose (74-99) mg/dL POC Glucose (mg/dL) 121 H 436 H (75-99) mg/dL Calcium (8.4-10.2) mg/dL Alkaline Phosphatase (38-126) U/L C-Reactive Protein (<1.0) mg/dL 09/02/21 09/02/21 09/02/21 Range/Units 02:33 06:05 06:37 WBC 2.3 L (3.8-10.6) k/uL RBC 2.78 L (3.80-5.40) m/uL Hgb 8.3 L (11.4-16.0) gm/dL Hct 24.6 L (34.0-46.0) % RDW 16.0 H (11.5-15.5) % Plt Count 137 L (150-450) k/uL Neutrophils # (Manual) 1.15 L (1.3-7.7) k/uL Lymphocytes # (1.0-4.8) k/uL Lymphocytes # (Manual) 0.55 L (1.0-4.8) k/uL Potassium (3.5-5.1) mmol/L BUN (7-17) mg/dL Creatinine (0.52-1.04) mg/dL Glucose (74-99) mg/dL POC Glucose (mg/dL) 521 H 173 H (75-99) mg/dL Calcium (8.4-10.2) mg/dL Alkaline Phosphatase (38-126) U/L C-Reactive Protein (<1.0) mg/dL Microbiology - Last 24 Hours (Table) 08/31/21 04:53 Blood Culture - Preliminary Blood No Growth after 48 hours Assessment and Plan (1) Sepsis due to pneumonia Current Visit: Yes Status: Acute Code(s): J18.9 - PNEUMONIA, UNSPECIFIED ORGANISM; A41.9 - SEPSIS, UNSPECIFIED ORGANISM SNOMED Code(s): 00044274 Plan: 1patient presented to hospital with fever in this patient also have a left lower rib cage pain which is pleuritic concerning for possible pneumonia and question of possible aspiration etiology recently completed course of oral Augmentin. 2 Patient did have a repeat cultures which are negative chest x-ray did not show any worsening pneumonia however the patient is spiking fever again and also noticed to have significant leukopenia, the patient's CRP is trending down though with a question of possible hematological source for her fever will discuss further with hematology oncology as the patient may benefit from a bone marrow evaluation, patient did have a CT of abdominal pelvis which did shows overall improvement in the lower lung lobes and also mentioned some distention of the stomach and a question of possible recurrent aspiration pneumonitis couldn't be explained for these recurrent fevers for now continue with the vancomycin Time with Patient: Less than 30
--- NOTE | 2021-09-03 16:24 | P.PN ---
Subjective Progress Note Date: 09/03/21 Principal diagnosis: Pneumonia Patient is a 30-year-old female with a past medical history significant for end-stage renal disease on dialysis presented to the hospital w ith a fever of left lower chest pain concerning for pneumonia. On today's evaluation that is 09/03/2021, The patient has been afebrile for more than 48 hours now the patient is breathing comfortably on room air is complaining of chest pain from coughing but no worsening cough or sputum production, patient was noticed to start coughing after she tried to chew on some ice cubes, no nausea no vomiting no abdominal pain and no diarrhea Objective - Vital Signs Vital signs: Vital Signs Temp 98.4 F 09/03/21 13:00 Pulse 71 09/03/21 13:00 Resp 18 09/03/21 13:00 BP 124/76 09/03/21 13:00 Pulse Ox 98 09/03/21 13:00 Intake & Output 09/02/21 09/03/21 09/03/21 18:59 06:59 18:59 Intake Total 980 180 Output Total 100 3000 Balance 880 -2820 Weight 47.627 kg Intake: IV 20 Invasive Line 6 20 Oral 960 180 Output: Urine 100 Hemodialysis 3000 Other: Voiding Method Toilet Toilet Toilet # Voids 1 - Exam GENERAL DESCRIPTION: Middle-age female lying in bed in no distress RESPIRATORY SYSTEM: Unlabored breathing , decreased breath sounds at bases HEART: S1 S2 regular rate and rhythm , ABDOMEN: Soft , no tenderness EXTREMITIES: No edema feet - Labs CBC & Chem 7: 09/02/21 06:37 09/01/21 16:16 Labs: Abnormal Lab Results - Last 24 Hours (Table) 09/02/21 09/02/21 09/03/21 Range/Units 16:30 20:01 02:13 POC Glucose (mg/dL) 239 H 258 H 247 H (75-99) mg/dL 09/03/21 09/03/21 Range/Units 06:06 11:43 POC Glucose (mg/dL) 220 H 117 H (75-99) mg/dL Microbiology - Last 24 Hours (Table) 08/31/21 04:53 Blood Culture - Preliminary Blood No Growth after 72 hours 09/01/21 15:47 Blood Culture - Preliminary Blood No Growth after 24 hours Assessment and Plan (1) Sepsis due to pneumonia Current Visit: Yes Status: Acute Code(s): J18.9 - PNEUMONIA, UNSPECIFIED OR GANISM; A41.9 - SEPSIS, UNSPECIFIED ORGANISM SNOMED Code(s): 53204428 Plan: 1patient presented to hospital with fever in this patient also have a left lower rib cage pain which is pleuritic concerning for possible pneumonia and question of possible aspiration etiology recently completed course of oral Augmentin. 2 Patient did have a repeat cultures which are negative chest x-ray did not show any worsening pneumonia however the patient is spiking fever again and also noticed to have significant leukopenia, patient did have a CT of abdominal pelvis which did shows overall improvement in the lower lung lobes and also mentioned some distention of the stomach and a question of possible recurrent aspiration pneumonitis to be responsible for these recurrent fevers and may benefit from strict aspiration precautions patient to continue with vancomycin recommend transitioning her to oral Avelox on discharge
[2021-09-03 16:28] LABS: Glucose,Whole Blood 459 mg/dL (75-99)
[2021-09-03 16:58] LABS: Anisocytosis Slight; HCT 28.6 % (34.0-46.0); HGB 9.4 gm/dL (11.4-16.0); Hypochromasia Slight; MCH 30.1 pg (25.0-35.0); MCHC 32.8 g/dL (31.0-37.0); MCV 91.5 fL (80.0-100.0); Platelet Count 167 k/uL (150-450); Poikilocytosis Slight; RBC 3.13 m/uL (3.80-5.40); RDW 16.3 % (11.5-15.5); WBC 1.6 k/uL (3.8-10.6)
[2021-09-03 17:07] LABS: Calcium 8.2 mg/dL (8.4-10.2)
[2021-09-03 19:28] LABS: Band Neutrophils % 1 %; Eosinophils # (M) 0.14 k/uL (0-0.7); Lymphocytes # (M) 0.38 k/uL (1.0-4.8); Monocytes # (M) 0.21 k/uL (0-1.0); Neutrophils % (M) 53 %; Nucleated Red Blood Cells 0 /100 WBC (0-0); Total Cells Counted 100
[2021-09-03 20:49] LABS: Glucose,Whole Blood 434 mg/dL (75-99)
[2021-09-03] MEDS: ISOSORBIDE MONONITRATE ER 30 MG TAB.ER.24H PO SCH (20:49)
[2021-09-03] MEDS: MELATONIN 5 MG TABLET PO PRN (20:50)
[2021-09-03] MEDS: INSULIN DETEMIR (LEVEMIR) 100 UNIT/ML SYR SQ SCH (20:50)
[2021-09-04] MEDS: HYDROmorphone 0.5 MG/0.5 ML SYRINGE IVP PRN ×4 (04:29→20:38)
[2021-09-04] MEDS: ENALAPRILAT 1.25 MG/ML 1 ML VIAL IVP PRN (04:32)
[2021-09-04 05:30] LABS: Glucose,Whole Blood 303 mg/dL (75-99)
[2021-09-04] MEDS: INSULIN ASPART (NovoLOG) 100 UNIT/ML VIAL SQ SCH ×4 (06:30→20:36)
[2021-09-04] MEDS: carvediloL 12.5 MG TAB PO SCH ×2 (06:30→17:35)
[2021-09-04] MEDS: SEVELAMER 800 MG TAB PO SCH ×3 (06:30→17:35)
[2021-09-04 09:21] LABS: HCT 29.8 % (34.0-46.0); HGB 9.9 gm/dL (11.4-16.0); MCH 29.9 pg (25.0-35.0); MCHC 33.1 g/dL (31.0-37.0); MCV 90.2 fL (80.0-100.0); Mean Platelet Volume 8.9; Platelet Count 206 k/uL (150-450); Poikilocytosis Slight; RBC 3.31 m/uL (3.80-5.40); RDW 15.8 % (11.5-15.5); WBC 2.3 k/uL (3.8-10.6)
[2021-09-04 09:29] LABS: Calcium 8.8 mg/dL (8.4-10.2); Potassium 4.3 mmol/L (3.5-5.1)
[2021-09-04 09:34] LABS: Vancomycin,Random 18.7 ug/mL
[2021-09-04] MEDS: lisinopriL 20 MG TAB PO SCH (09:47)
[2021-09-04] MEDS: LABETALOL 200 MG TAB PO SCH (09:47)
[2021-09-04] MEDS: MEGESTROL 400 MG/10 ML CUP PO SCH (09:47)
[2021-09-04] MEDS: cloNIDine HCL 0.1 MG TAB PO SCH ×3 (09:47→20:37)
[2021-09-04] MEDS: ASPIRIN 81 MG PO SCH (09:47)
[2021-09-04] MEDS: ESCITALOPRAM 20 MG TAB PO SCH (09:48)
[2021-09-04] MEDS: HEPARIN SODIUM,PORCINE/PF 5,000 UNIT/0.5 ML SYRINGE SQ SCH ×2 (09:48→20:31)
[2021-09-04] MEDS: CYANOCOBALAMIN 500 MCG TAB PO SCH (09:48)
[2021-09-04] MEDS: PANTOPRAZOLE 40 MG TABLET PO SCH ×2 (09:48→20:37)
[2021-09-04 10:22] LABS: Eosinophils # (M) 0.16 k/uL (0-0.7); Lymphocytes # (M) 0.69 k/uL (1.0-4.8); Monocytes # (M) 0.12 k/uL (0-1.0); Neutrophils # (M) 1.33 k/uL (1.3-7.7); Neutrophils % (M) 58 %; Nucleated Red Blood Cells 0 /100 WBC (0-0); Total Cells Counted 100
--- NOTE | 2021-09-04 10:51 | P.PN ---
Subjective Patient is seen in follow-up for end-stage renal disease. She is maintained on hemodialysis on Monday schedule. Denies chest pain or shortness of breath. Blood pressure was high earlier this morning but most recent blood pressure was in the systolic 160s. No vomiting or diarrhea. No headaches. Vital signs are stable. General: Resting in bed. Alert. HEENT: Head exam is unremarkable. LUNGS: Breath sounds decreased. HEART: Rate and Rhythm are regular. ABDOMEN: Soft, no distention. EXTREMITITES: No edema. Objective - Vital Signs Vital signs: Vital Signs Temp 99.0 F 09/04/21 04:00 Pulse 77 09/04/21 04:00 Resp 18 09/04/21 04:00 BP 221/106 09/04/21 04:00 Pulse Ox 96 09/04/21 04:00 Intake & Output 09/03/21 09/04/21 09/04/21 18:59 06:59 18:59 Intake Total 900 10 180 Output Total 3000 Balance -2100 10 180 Weight 46.6 kg Intake: IV 10 0.9 10 Oral 900 180 Output: Hemodialysis 3000 Other: Voiding Method Toilet Toilet # Voids 1 # Bowel Movements 1 - Labs CBC & Chem 7: 09/04/21 08:37 09/04/21 08:37 Labs: Abnormal Lab Results - Last 24 Hours (Table) 09/03/21 09/03/21 09/03/21 Range/Units 11:43 16:04 16:04 WBC 1.6 L (3.8-10.6) k/uL RBC 3.13 L (3.80-5.40) m/uL Hgb 9.4 L (11.4-16.0) gm/dL Hct 28.6 L (34.0-46.0) % RDW 16.3 H (11.5-15.5) % Neutrophils # (Manual) 0.80 L (1.3-7.7) k/uL Lymphocytes # (Manual) 0.38 L (1.0-4.8) k/uL Sodium 128 L (137-145) mmol/L Chloride 93 L (98-107) mmol/L Carbon Dioxide 19 L (22-30) mmol/L BUN 21 H (7-17) mg/dL Creatinine 4.10 H (0.52-1.04) mg/dL Glucose 445 H (74-99) mg/dL POC Glucose (mg/dL) 117 H (75-99) mg/dL Calcium 8.2 L (8.4-10.2) mg/dL 09/03/21 09/03/21 09/04/21 Range/Units 16:27 20:48 05:29 WBC (3.8-10.6) k/uL RBC (3.80-5.40) m/uL Hgb (11.4-16.0) gm/dL Hct (34.0-46.0) % RDW (11.5-15.5) % Neutrophils # (Manual) (1.3-7.7) k/uL Lymphocytes # (Manual) (1.0-4.8) k/uL Sodium (137-145) mmol/L Chloride (98-107) mmol/L Carbon Dioxide (22-30) mmol/L BUN (7-17) mg/dL Creatinine (0.52-1.04) mg/dL Glucose (74-99) mg/dL POC Glucose (mg/dL) 459 H 434 H 303 H (75-99) mg/dL Calcium (8.4-10.2) mg/dL 09/04/21 09/04/21 Range/Units 08:37 08:37 WBC 2.3 L (3.8-10.6) k/uL RBC 3.31 L (3.80-5.40) m/uL Hgb 9.9 L (11.4-16.0) gm/dL Hct 29.8 L (34.0-46.0) % RDW 15.8 H (11.5-15.5) % Neutrophils # (Manual) (1.3-7.7) k/uL Lymphocytes # (Manual) 0.69 L (1.0-4.8) k/uL Sodium 134 L (137-145) mmol/L Chloride 96 L (98-107) mmol/L Carbon Dioxide (22-30) mmol/L BUN 44 H (7-17) mg/dL Creatinine 6.80 H (0.52-1.04) mg/dL Glucose 242 H (74-99) mg/dL POC Glucose (mg/dL) (75-99) mg/dL Calcium (8.4-10.2) mg/dL Microbiology - Last 24 Hours (Table) 08/31/21 04:53 Blood Culture - Preliminary Blood No Growth after 96 hours 09/01/21 15:47 Blood Culture - Preliminary Blood No Growth after 48 hours Assessment and Plan Plan: Assessment: 1. End-stage renal disease maintained on hemodialysis on Monday schedule. 2. Hypertension with chronic kidney disease. Blood pressure labile. 3. Volume overload with pericardial and pleural effusion. Hydralazine and minoxidil have been discontinued due to pericardial effusion. 4. Diabetes mellitus. 5. Pneumonia on antibiotics. 6. Anemia of chronic kidney disease. That is post IV iron. On Aranesp. 7. Metabolic acidosis secondary to chronic kidney disease. Improved postdialysis. 8. Hyponatremia secondary to hyperglycemia Chronic kidney disease. Improved postdialysis and better blood sugar control. 9. Mild hyperkalemia secondary to metabolic acidosis and hyperglycemia. Improved postdialysis. 10. Chronic kidney disease mineral bone disease maintain Renvela. Phosphorus 3.6 dated 08/23/2021. 11. Chronic diastolic CHF. Plan: Hemodialysis Monday. Tight blood sugar control. Patient has been advised multiple times to be compliant with hemodialysis treatments and medications. She has also been advised to come for extra treatments outpatient to help with ultrafiltration. Monitor vancomycin levels. Dose to be adjusted for renal function. Increase dose of nifedipine to 90 mg. Stop labetalol as she is on Coreg as well.
[2021-09-04] MEDS ORDERED: VANCOMYCIN 750 MG in SODIUM CHLORIDE 0.9% 250 ML IVPB ONE (11:00)
[2021-09-04 11:48] LABS: Glucose,Whole Blood 465 mg/dL (75-99)
[2021-09-04] MEDS: diphenhydrAMINE 25 MG CAP PO PRN ×2 (15:23→21:59)
--- NOTE | 2021-09-04 15:59 | P.PN ---
Subjective Progress Note Date: 09/04/21 Principal diagnosis: Pneumonia Patient is a 30-year-old female with a past medical history significant for end-stage renal disease on dialysis presented to the hospital w ith a fever of left lower chest pain concerning for pneumonia. On today's evaluation that is 09/04/2021, The patient continues to be afebrile,the patient is breathing comfortably on room air , the patient is still complaining of chest pain from coughing but no worsening cough or sputum production, patient denies nausea no vomiting no abdominal pain and no diarrhea Objective - Vital Signs Vital signs: Vital Signs Temp 98.9 F 09/04/21 08:00 Pulse 79 09/04/21 08:00 Resp 17 09/04/21 08:00 BP 169/91 09/04/21 08:00 Pulse Ox 100 09/04/21 08:00 Intake & Output 09/03/21 09/04/21 09/04/21 18:59 06:59 18:59 Intake Total 900 10 180 Output Total 3000 Balance -2100 10 180 Weight 46.6 kg Intake: IV 10 0.9 10 Oral 900 180 Output: Hemodialysis 3000 Other: Voiding Method Toilet Toilet Toilet # Voids 1 # Bowel Movements 1 - Exam GENERAL DESCRIPTION: Middle-age female lying in bed in no distress RESPIRATORY SYSTEM: Unlabored breathing , decreased breath sounds at bases HEART: S1 S2 regular rate and rhythm , ABDOMEN: Soft , no tenderness EXTREMITIES: No edema feet - Labs CBC & Chem 7: 09/04/21 08:37 09/04/21 08:37 Labs: Abnormal Lab Results - Last 24 Hours (Table) 09/03/21 09/03/21 09/03/21 Range/Units 16:04 16:04 16:27 WBC 1.6 L (3.8-10.6) k/uL RBC 3.13 L (3.80-5.40) m/uL Hgb 9.4 L (11.4-16.0) gm/dL Hct 28.6 L (34.0-46.0) % RDW 16.3 H (11.5-15.5) % Neutrophils # (Manual) 0.80 L (1.3-7.7) k/uL Lymphocytes # (Manual) 0.38 L (1.0-4.8) k/uL Sodium 128 L (137-145) mmol/L Chloride 93 L (98-107) mmol/L Carbon Dioxide 19 L (22-30) mmol/L BUN 21 H (7-17) mg/dL Creatinine 4.10 H (0.52-1.04) mg/dL Glucose 445 H (74-99) mg/dL POC Glucose (mg/dL) 459 H (75-99) mg/dL Calcium 8.2 L (8.4-10.2) mg/dL 09/03/21 09/04/21 09/04/21 Range/Units 20:48 05:29 08:37 WBC (3.8-10.6) k/uL RBC (3.80-5.40) m/uL Hgb (11.4-16.0) gm/dL Hct (34.0-46.0) % RDW (11.5-15.5) % Neutrophils # (Manual) (1.3-7.7) k/uL Lymphocytes # (Manual) (1.0-4.8) k/uL Sodium 134 L (137-145) mmol/L Chloride 96 L (98-107) mmol/L Carbon Dioxide (22-30) mmol/L BUN 44 H (7-17) mg/dL Creatinine 6.80 H (0.52-1.04) mg/dL Glucose 242 H (74-99) mg/dL POC Glucose (mg/dL) 434 H 303 H (75-99) mg/dL Calcium (8.4-10.2) mg/dL 09/04/21 09/04/21 Range/Units 08:37 11:46 WBC 2.3 L (3.8-10.6) k/uL RBC 3.31 L (3.80-5.40) m/uL Hgb 9.9 L (11.4-16.0) gm/dL Hct 29.8 L (34.0-46.0) % RDW 15.8 H (11.5-15.5) % Neutrophils # (Manual) (1.3-7.7) k/uL Lymphocytes # (Manual) 0.69 L (1.0-4.8) k/uL Sodium (137-145) mmol/L Chloride (98-107) mmol/L Carbon Dioxide (22-30) mmol/L BUN (7-17) mg/dL Creatinine (0.52-1.04) mg/dL Glucose (74-99) mg/dL POC Glucose (mg/dL) 465 H (75-99) mg/dL Calcium (8.4-10.2) mg/dL Microbiology - Last 24 Hours (Table) 08/31/21 04:53 Blood Culture - Preliminary Blood No Growth after 96 hours 09/01/21 15:47 Blood Culture - Preliminary Blood No Growth after 48 hours Assessment and Plan (1) Sepsis due to pneumonia Current Visit: Yes Status: Acute Code(s): J18.9 - PNEUMONIA, UNSPECIFIED ORGANISM; A41.9 - SEPSIS, UNSPECIFIED ORGANISM SNOMED Code(s): 75344423 Plan: 1patient presented to hospital with fever in this patient also have a left lower rib cage pain which is pleuritic concerning for possible pneumonia and question of possible aspiration etiology recently completed course of oral Augmentin. 2 Patient did have a repeat cultures which are negative chest x-ray did not show any worsening pneumonia however the patient is spiking fever again and also noticed to have significant leukopenia, patient did have a CT of abdominal pelvis which did shows overall improvement in the lower lung lobes and also mentioned some distention of the stomach and a question of possible recurrent aspiration pneumonitis to be responsible for these recurrent fevers and may benefit from strict aspiration precautions patient is currently being treated with vancomycin recommend transitioning to a short course of oral Avelox on di rge Time with Patient: Less than 30
[2021-09-04 16:59] LABS: Glucose,Whole Blood 565 mg/dL (75-99)
[2021-09-04 20:28] LABS: Glucose,Whole Blood 492 mg/dL (75-99)
[2021-09-04] MEDS: MELATONIN 5 MG TABLET PO PRN (20:37)
[2021-09-04] MEDS: ISOSORBIDE MONONITRATE ER 30 MG TAB.ER.24H PO SCH (20:37)
[2021-09-04] MEDS: INSULIN DETEMIR (LEVEMIR) 100 UNIT/ML SYR SQ SCH (20:37)
[2021-09-04 23:13] LABS: Glucose,Whole Blood 288 mg/dL (75-99)
[2021-09-05] MEDS: HYDROmorphone 0.5 MG/0.5 ML SYRINGE IVP PRN ×4 (02:25→19:06)
[2021-09-05] MEDS: diphenhydrAMINE 25 MG CAP PO PRN ×3 (03:55→23:28)
[2021-09-05 06:00] LABS: Glucose,Whole Blood 218 mg/dL (75-99)
[2021-09-05] MEDS: carvediloL 12.5 MG TAB PO SCH ×2 (06:24→16:57)
[2021-09-05] MEDS: INSULIN ASPART (NovoLOG) 100 UNIT/ML VIAL SQ SCH ×4 (06:29→20:54)
[2021-09-05] MEDS: SEVELAMER 800 MG TAB PO SCH ×3 (06:29→16:57)
[2021-09-05] MEDS: HEPARIN SODIUM,PORCINE/PF 5,000 UNIT/0.5 ML SYRINGE SQ SCH ×2 (09:02→20:54)
[2021-09-05] MEDS: cloNIDine HCL 0.1 MG TAB PO SCH ×3 (09:03→20:53)
[2021-09-05] MEDS: CYANOCOBALAMIN 500 MCG TAB PO SCH (09:03)
[2021-09-05] MEDS: ERGOCALCIFEROL 1,250 MCG (50,000 IU) CAPSULE PO SCH (09:03)
[2021-09-05] MEDS: ASPIRIN 81 MG PO SCH (09:03)
[2021-09-05] MEDS: ESCITALOPRAM 20 MG TAB PO SCH (09:04)
[2021-09-05] MEDS: NIFEdipine XL 90 MG TAB.ER.24 PO SCH (09:04)
[2021-09-05] MEDS: PANTOPRAZOLE 40 MG TABLET PO SCH ×2 (09:04→20:54)
[2021-09-05] MEDS: lisinopriL 20 MG TAB PO SCH (09:10)
[2021-09-05] MEDS: MEGESTROL 400 MG/10 ML CUP PO SCH (09:10)
--- NOTE | 2021-09-05 09:58 | P.PN ---
Subjective Patient is seen in follow-up for end-stage renal disease. She is maintained on hemodialysis on Monday schedule. Denies chest pain or shortness of breath. Blood pressure controlled overnight. No complaints at this time. Vital signs are stable. General: Resting in bed. Alert. HEENT: Head exam is unremarkable. LUNGS: Breath sounds decreased. HEART: Rate and Rhythm are regular. ABDOMEN: Soft, no distention. EXTREMITITES: No edema. Objective - Vital Signs Vital signs: Vital Signs Temp 98.3 F 09/05/21 08:00 Pulse 79 09/05/21 08:00 Resp 17 09/05/21 08:00 BP 148/83 09/05/21 08:00 Pulse Ox 98 09/05/21 08:00 Intake & Output 09/04/21 09/05/21 09/05/21 18:59 06:59 18:59 Intake Total 420 Output Total 0 Balance 420 Weight 47.5 kg Intake: Oral 420 Output: Urine 0 Other: Voiding Method Toilet Toilet Toilet # Voids 1 0 # Bowel Movements 1 - Labs CBC & Chem 7: 09/04/21 08:37 09/04/21 08:37 Labs: Abnormal Lab Results - Last 24 Hours (Table) 09/04/21 09/04/21 09/04/21 Range/Units 08:37 11:46 16:57 Lymphocytes # (Manual) 0.69 L (1.0-4.8) k/uL POC Glucose (mg/dL) 465 H 565 H (75-99) mg/dL 09/04/21 09/04/21 09/05/21 Range/Units 20:22 22:52 05:48 Lymphocytes # (Manual) (1.0-4.8) k/uL POC Glucose (mg/dL) 492 H 288 H 218 H (75-99) mg/dL Microbiology - Last 24 Hours (Table) 08/31/21 04:53 Blood Culture - Preliminary Blood No Growth after 120 hours 09/01/21 15:47 Blood Culture - Preliminary Blood No Growth after 72 hours Assessment and Plan Plan: Assessment: 1. End-stage renal disease maintained on hemodialysis on Monday schedule. 2. Hypertension with chronic kidney disease. Blood pressure labile. Controlled this morning. 3. Volume overload with pericardial and pleural effusion. Hydralazine and minoxidil have been discontinued due to pericardial effusion. 4. Diabetes mellitus. 5. Pneumonia on antibiotics. 6. Anemia of chronic kidney disease. That is post IV iron. On Aranesp. 7. Metabolic acidosis secondary to chronic kidney disease. Improved postdialysis. 8. Hyponatremia secondary to hyperglycemia Chronic kidney disease. Improved postdialysis and better blood sugar control. 9. Mild hyperkalemia secondary to metabolic acidosis and hyperglycemia. Improved postdialysis. 10. Chronic kidney disease mineral bone disease maintain Renvela. Phosphorus 3.6 dated 08/23/2021. 11. Chronic diastolic CHF. Plan: Hemodialysis Monday. Tight blood sugar control. Patient has been advised multiple times to be compliant with hemodialysis treatments and medications. She has also been advised to come for extra treatments outpatient to help with ultrafiltration. Monitor vancomycin levels. Dose to be adjusted for renal function.
[2021-09-05 11:39] LABS: Glucose,Whole Blood 371 mg/dL (75-99)
--- NOTE | 2021-09-05 15:11 | P.PN ---
Subjective Progress Note Date: 09/03/21 Principal diagnosis: Sepsis: Secondary to bilateral interstitial multifocal pneumonia, on IV antibiotics End-stage renal disease, hemodialysis dependent monday Hyponatremia secondary to chronic kidney disease Hyperkalemia secondary to chronic renal disease 30-year-old female came in with complaints of bilateral rib cage pain, fevers w hich started on Monday. Patient had an abdominal CT which showed a pneumonic infiltrate in the right lung along with some parapneumonic effusion. Patient was started on broad-spectrum antibiotics vancomycin and cefepime treating for healthcare associated pneumonia patient was recently hospitalized for couple weeks ago at that time patient was treated for intra-abdominal infection at that time. Patient has history of end-stage renal disease hemodialysis dependent. Patient has mild leukocytosis with a white blood cell count of 10 patient does have history of type 1 diabetes mellitus and diabetic nephropathy which led to hemodialysis dependence. 09/03/2021 Patient is seen and evaluated in selective care unit; complains of abdominal pain; discussed with nursing staff; patient has been using IV Dilaudid for pain control Vital signs are reviewed stable with temperature of 98.6, pulse 74, respiration 18 and blood pressure of 183/90; patient has a T-max of 101 last night Nephrology on board for end-stage renal disease/HD on Monday, Monday and Monday schedule Remains on IV antibiotics for left lower lobe pneumonia; computed tomography scan of abdomen and pelvis reveals improved pericardial effusion, interval improvement in aeration at visualized lung bases, prominent ingested solid material within the stomach Patient did have a repeat cultures which are negative chest x-ray did not show any worsening pneumonia however the patient is spiking fever again and also noticed to have significant leukopenia; ID on board and recommending to continue with IV vancomycin at this point Objective - Vital Signs Vital signs: Vital Signs Temp 98.6 F 09/03/21 09:25 Pulse 74 09/03/21 09:25 Resp 18 09/03/21 09:25 BP 183/90 09/03/21 09:25 Pulse Ox 96 09/03/21 09:25 Intake & Output 09/02/21 09/03/21 09/03/21 18:59 06:59 18:59 Intake Total 980 180 Output Total 100 Balance 880 180 Weight 47.627 kg Intake: IV 20 Invasive Line 6 20 Oral 960 180 Output: Urine 100 Other: Voiding Method Toilet Toilet Toilet # Voids 1 - Exam GENERAL: The patient is alert and oriented x3, ill appearing, fatigued. Pale. HEENT: Pupils are round and equally reacting to light. EOMI. No scleral icterus. No conjunctival pallor. Normocephalic, atraumatic. No pharyngeal erythema. No thyromegaly. CARDIOVASCULAR: S1 and S2 muffled PULMONARY: Chest is diminished bilaterally, no wheezing, crackles noted. ABDOMEN: Soft, nontender, nondistended, normoactive bowel sounds. No palpable organomegaly. dry cough on exam MUSCULOSKELETAL: No joint swelling or deformity. EXTREMITIES: No cyanosis, clubbing, or pedal edema. NEUROLOGICAL: Gross neurological examination did not reveal any focal deficits. SKIN: No rashes. - Labs CBC & Chem 7: 09/04/21 08:37 09/04/21 08:37 Labs: Abnormal Lab Results - Last 24 Hours (Table) 09/02/21 09/02/21 09/03/21 Range/Units 16:30 20:01 02:13 POC Glucose (mg/dL) 239 H 258 H 247 H (75-99) mg/dL 09/03/21 09/03/21 Range/Units 06:06 11:43 POC Glucose (mg/dL) 220 H 117 H (75-99) mg/dL Microbiology - Last 24 Hours (Table) 08/31/21 04:53 Blood Culture - Preliminary Blood No Growth after 72 hours 09/01/21 15:47 Blood Culture - Preliminary Blood No Growth after 24 hours Assessment and Plan Assessment: -Sepsis: Secondary to bilateral interstitial multifocal pneumonia, on IV antibiotics -End-stage renal disease, hemodialysis dependent monday -Hyponatremia secondary to chronic kidney disease -Hyperkalemia secondary to chronic renal disease -Anemia, chronic maintained on aranesp -Type 1 diabetes mellitus, uncontrolled with hyperglycemia as well as h ypoglycemia, brittle -Pericardial effusion -Pleuritic chest pain and a parapneumonic effusion -Hypertension secondary to renal disease -Depression -DVT prophylaxis: subcutaneous heparin -GI prophylaxis -Full Code Plan Dialysis today Requesting patients home lantus be brought to hospital Levemir decreased to 8 units HS Abdominal/Pelvis CT tomorrow Follow up CBC/Mag today Repeat labs in AM Continue all other supportive care Continue to use IS Prognosis guarded
--- NOTE | 2021-09-05 15:13 | P.PN ---
Subjective Progress Note Date: 09/04/21 Principal diagnosis: Sepsis: Secondary to bilateral interstitial multifocal pneumonia, on IV antibiotics End-stage renal disease, hemodialysis dependent monday Hyponatremia secondary to chronic kidney disease Hyperkalemia secondary to chronic renal disease 30-year-old female came in with complaints of bilateral rib cage pain, fevers w hich started on Monday. Patient had an abdominal CT which showed a pneumonic infiltrate in the right lung along with some parapneumonic effusion. Patient was started on broad-spectrum antibiotics vancomycin and cefepime treating for healthcare associated pneumonia patient was recently hospitalized for couple weeks ago at that time patient was treated for intra-abdominal infection at that time. Patient has history of end-stage renal disease hemodialysis dependent. Patient has mild leukocytosis with a white blood cell count of 10 patient does have history of type 1 diabetes mellitus and diabetic nephropathy which led to hemodialysis dependence. 09/03/2021 Patient is seen and evaluated in selective care unit; complains of abdominal pain; discussed with nursing staff; patient has been using IV Dilaudid for pain control Vital signs are reviewed stable with temperature of 98.6, pulse 74, respiration 18 and blood pressure of 183/90; patient has a T-max of 101 last night Nephrology on board for end-stage renal disease/HD on Monday, Monday and Monday schedule Remains on IV antibiotics for left lower lobe pneumonia; computed tomography scan of abdomen and pelvis reveals improved pericardial effusion, interval improvement in aeration at visualized lung bases, prominent ingested solid material within the stomach Patient did have a repeat cultures which are negative chest x-ray did not show any worsening pneumonia however the patient is spiking fever again and also noticed to have significant leukopenia; ID on board and recommending to continue with IV vancomycin at this point 09/04/2021 Patient is seen and evaluated in room at bedside; requesting scheduled Ativan with extra dose at bedtime; complains of chest pain with coughing Vital signs are reviewed and remained stable; no fever in the last 24 hours Laboratory review shows W BC of 2.3, hemoglobin 9.9, sodium 134, potassium 4.3, BUN/creatinine of 44/6.8, blood glucose of 242 Patient did have a repeat cultures which are negative chest x-ray did not show any worsening pneumonia however the patient is spiking fever again and also noticed to have significant leukopenia, patient did have a CT of abdominal pelvis which did shows overall improvement in the lower lung lobes and also mentioned some distention of the stomach and a question of possible recurrent aspiration pneumonitis to be responsible for these recurrent fevers and may benefit from strict aspiration precautions patient is currently being treated with vancomycin recommend transitioning to a short course of oral Avelox on discharge Objective - Vital Signs Vital signs: Vital Signs Temp 98.9 F 09/04/21 08:00 Pulse 79 09/04/21 08:00 Resp 17 09/04/21 08:00 BP 169/91 09/04/21 08:00 Pulse Ox 100 09/04/21 08:00 Intake & Output 09/03/21 09/04/21 09/04/21 18:59 06:59 18:59 Intake Total 900 10 180 Output Total 3000 Balance -2100 10 180 Weight 46.6 kg Intake: IV 10 0.9 10 Oral 900 180 Output: Hemodialysis 3000 Other: Voiding Method Toilet Toilet Toilet # Voids 1 # Bowel Movements 1 - Exam GENERAL: The patient is alert and oriented x3, ill appearing, fatigued. Pale. HEENT: Pupils are round and equally reacting to light. EOMI. No scleral icterus. No conjunctival pallor. Normocephalic, atraumatic. No pharyngeal erythema. No thyromegaly. CARDIOVASCULAR: S1 and S2 muffled PULMONARY: Chest is diminished bilaterally, no wheezing, crackles noted. ABDOMEN: Soft, nontender, nondistended, normoactive bowel sounds. No palpable organomegaly. dry cough on exam MUSCULOSKELETAL: No joint swelling or deformity. EXTREMITIES: No cyanosis, clubbing, or pedal edema. NEUROLOGICAL: Gross neurological examination did not reveal any focal deficits. SKIN: No rashes. - Labs CBC & Chem 7: 09/04/21 08:37 09/04/21 08:37 Labs: Abnormal Lab Results - Last 24 Hours (Table) 09/03/21 09/03/21 09/03/21 Range/Units 16:04 16:04 16:27 WBC 1.6 L (3.8-10.6) k/uL RBC 3.13 L (3.80-5.40) m/uL Hgb 9.4 L (11.4-16.0) gm/dL Hct 28.6 L (34.0-46.0) % RDW 16.3 H (11.5-15.5) % Neutrophils # (Manual) 0.80 L (1.3-7.7) k/uL Lymphocytes # (Manual) 0.38 L (1.0-4.8) k/uL Sodium 128 L (137-145) mmol/L Chloride 93 L (98-107) mmol/L Carbon Dioxide 19 L (22-30) mmol/L BUN 21 H (7-17) mg/dL Creatinine 4.10 H (0.52-1.04) mg/dL Glucose 445 H (74-99) mg/dL POC Glucose (mg/dL) 459 H (75-99) mg/dL Calcium 8.2 L (8.4-10.2) mg/dL 09/03/21 09/04/21 09/04/21 Range/Units 20:48 05:29 08:37 WBC (3.8-10.6) k/uL RBC (3.80-5.40) m/uL Hgb (11.4-16.0) gm/dL Hct (34.0-46.0) % RDW (11.5-15.5) % Neutrophils # (Manual) (1.3-7.7) k/uL Lymphocytes # (Manual) (1.0-4.8) k/uL Sodium 134 L (137-145) mmol/L Chloride 96 L (98-107) mmol/L Carbon Dioxide (22-30) mmol/L BUN 44 H (7-17) mg/dL Creatinine 6.80 H (0.52-1.04) mg/dL Glucose 242 H (74-99) mg/dL POC Glucose (mg/dL) 434 H 303 H (75-99) mg/dL Calcium (8.4-10.2) mg/dL 09/04/21 09/04/21 Range/Units 08:37 11:46 WBC 2.3 L (3.8-10.6) k/uL RBC 3.31 L (3.80-5.40) m/uL Hgb 9.9 L (11.4-16.0) gm/dL Hct 29.8 L (34.0-46.0) % RDW 15.8 H (11.5-15.5) % Neutrophils # (Manual) (1.3-7.7) k/uL Lymphocytes # (Manual) 0.69 L (1.0-4.8) k/uL Sodium (137-145) mmol/L Chloride (98-107) mmol/L Carbon Dioxide (22-30) mmol/L BUN (7-17) mg/dL Creatinine (0.52-1.04) mg/dL Glucose (74-99) mg/dL POC Glucose (mg/dL) 465 H (75-99) mg/dL Calcium (8.4-10.2) mg/dL Microbiology - Last 24 Hours (Table) 08/31/21 04:53 Blood Culture - Preliminary Blood No Growth after 96 hours 09/01/21 15:47 Blood Culture - Preliminary Blood No Growth after 48 hours Assessment and Plan Assessment: -Sepsis: Secondary to bilateral interstitial multifocal pneumonia, on IV antibiotics -End-stage renal disease, hemodialysis dependent monday -Hyponatremia secondary to chronic kidney disease -Hyperkalemia secondary to chronic renal disease -Anemia, chronic maintained on aranesp -Type 1 diabetes mellitus, uncontrolled with hyperglycemia as well as hypoglycemia, brittle -Pericardial effusion -Pleuritic chest pain and a parapneumonic effusion -Hypertension secondary to renal disease -Depression -DVT prophylaxis: subcutaneous heparin -GI prophylaxis -Full Code Plan Dialysis today Requesting patients home lantus be brought to hospital Levemir decreased to 8 units HS Abdominal/Pelvis CT tomorrow Follow up CBC/Mag today Repeat labs in AM Continue all other supportive care Continue to use IS Prognosis guarded
--- NOTE | 2021-09-05 15:18 | P.PN ---
Subjective Progress Note Date: 09/05/21 Principal diagnosis: Sepsis: Secondary to bilateral interstitial multifocal pneumonia, on IV antibiotics End-stage renal disease, hemodialysis dependent monday Hyponatremia secondary to chronic kidney disease Hyperkalemia secondary to chronic renal disease 30-year-old female came in with complaints of bilateral rib cage pain, fevers w hich started on Monday. Patient had an abdominal CT which showed a pneumonic infiltrate in the right lung along with some parapneumonic effusion. Patient was started on broad-spectrum antibiotics vancomycin and cefepime treating for healthcare associated pneumonia patient was recently hospitalized for couple weeks ago at that time patient was treated for intra-abdominal infection at that time. Patient has history of end-stage renal disease hemodialysis dependent. Patient has mild leukocytosis with a white blood cell count of 10 patient does have history of type 1 diabetes mellitus and diabetic nephropathy which led to hemodialysis dependence. 09/03/2021 Patient is seen and evaluated in selective care unit; complains of abdominal pain; discussed with nursing staff; patient has been using IV Dilaudid for pain control Vital signs are reviewed stable with temperature of 98.6, pulse 74, respiration 18 and blood pressure of 183/90; patient has a T-max of 101 last night Nephrology on board for end-stage renal disease/HD on Monday, Monday and Monday schedule Remains on IV antibiotics for left lower lobe pneumonia; computed tomography scan of abdomen and pelvis reveals improved pericardial effusion, interval improvement in aeration at visualized lung bases, prominent ingested solid material within the stomach Patient did have a repeat cultures which are negative chest x-ray did not show any worsening pneumonia however the patient is spiking fever again and also noticed to have significant leukopenia; ID on board and recommending to continue with IV vancomycin at this point 09/04/2021 Patient is seen and evaluated in room at bedside; requesting scheduled Ativan with extra dose at bedtime; complains of chest pain with coughing Vital signs are reviewed and remained stable; no fever in the last 24 hours Laboratory review shows W BC of 2.3, hemoglobin 9.9, sodium 134, potassium 4.3, BUN/creatinine of 44/6.8, blood glucose of 242 Patient did have a repeat cultures which are negative chest x-ray did not show any worsening pneumonia however the patient is spiking fever again and also noticed to have significant leukopenia, patient did have a CT of abdominal pelvis which did shows overall improvement in the lower lung lobes and also mentioned some distention of the stomach and a question of possible recurrent aspiration pneumonitis to be responsible for these recurrent fevers and may benefit from strict aspiration precautions patient is currently being treated with vancomycin recommend transitioning to a short course of oral Avelox on discharge 09/05/2021 Patient is sitting up in bed; remains afebrile; complains of feeling sleepy and weak; no complaining of chest pain or shortness of breath Patient did have a repeat cultures which are negative chest x-ray did not show any worsening pneumonia however the patient is spiking fever again and also noticed to have significant leukopenia, patient did have a CT of abdominal pelvis which did shows overall improvement in the lower lung lobes and also mentioned some distention of the stomach and a question of possible recurrent aspiration pneumonitis to be responsible for these recurrent fevers and may benefit from strict aspiration precautions patient is currently being treated with vancomycin recommend transitioning to a short course of oral Avelox on discharge Patient is stable and could be discharged home; patient requesting to hold discharge for repeat hemodialysis tomorrow morning Objective - Vital Signs Vital signs: Vital Signs Temp 98.3 F 09/05/21 11:31 Pulse 84 09/05/21 11:31 Resp 18 09/05/21 11:31 BP 169/90 09/05/21 11:31 Pulse Ox 98 09/05/21 11:31 Intake & Output 09/04/21 09/05/21 09/05/21 18:59 06:59 18:59 Intake Total 420 130 Output Total 0 Balance 420 130 Weight 47.5 kg Intake: IV 10 0.9 10 Oral 420 120 Output: Urine 0 Other: Voiding Method Toilet Toilet Toilet # Voids 1 0 # Bowel Movements 1 - Exam GENERAL: The patient is alert and oriented x3, ill appearing, fatigued. Pale. HEENT: Pupils are round and equally reacting to light. EOMI. No scleral icterus. No conjunctival pallor. Normocephalic, atraumatic. No pharyngeal erythema. No thyromegaly. CARDIOVASCULAR: S1 and S2 muffled PULMONARY: Chest is diminished bilaterally, no wheezing, crackles noted. ABDOMEN: Soft, nontender, nondistended, normoactive bowel sounds. No palpable organomegaly. dry cough on exam MUSCULOSKELETAL: No joint swelling or deformity. EXTREMITIES: No cyanosis, clubbing, or pedal edema. NEUROLOGICAL: Gross neurological examination did not reveal any focal deficits. SKIN: No rashes. - Labs CBC & Chem 7: 09/04/21 08:37 09/04/21 08:37 Labs: Abnormal Lab Results - Last 24 Hours (Table) 09/04/21 09/04/21 09/04/21 Range/Units 16:57 20:22 22:52 POC Glucose (mg/dL) 565 H 492 H 288 H (75-99) mg/dL 09/05/21 09/05/21 Range/Units 05:48 11:37 POC Glucose (mg/dL) 218 H 371 H (75-99) mg/dL Microbiology - Last 24 Hours (Table) 08/31/21 04:53 Blood Culture - Preliminary Blood No Growth after 120 hours 09/01/21 15:47 Blood Culture - Preliminary Blood No Growth after 72 hours Assessment and Plan Assessment: -Sepsis: Secondary to bilateral interstitial multifocal pneumonia, on IV antibiotics -End-stage renal disease, hemodialysis dependent monday -Hyponatremia secondary to chronic kidney disease -Hyperkalemia secondary to chronic renal disease -Anemia, chronic maintained on aranesp -Type 1 diabetes mellitus, uncontrolled with hyperglycemia as well as hypoglycemia, brittle -Pericardial effusion -Pleuritic chest pain and a parapneumonic effusion -Hypertension secondary to renal disease -Depression -DVT prophylaxis: subcutaneous heparin -GI prophylaxis -Full Code Plan Dialysis today Requesting patients home lantus be brought to hospital Levemir decreased to 8 units HS Abdominal/Pelvis CT tomorrow Follow up CBC/Mag today Repeat labs in AM Continue all other supportive care Continue to use IS Prognosis guarded
[2021-09-05 16:31] LABS: Glucose,Whole Blood 447 mg/dL (75-99)
[2021-09-05 20:17] LABS: Glucose,Whole Blood 357 mg/dL (75-99)
[2021-09-05] MEDS: ISOSORBIDE MONONITRATE ER 30 MG TAB.ER.24H PO SCH (20:53)
[2021-09-05] MEDS: MELATONIN 5 MG TABLET PO PRN (20:53)
[2021-09-05] MEDS: INSULIN DETEMIR (LEVEMIR) 100 UNIT/ML SYR SQ SCH (20:59)
--- NOTE | 2021-09-05 23:16 | P.PN ---
Subjective Progress Note Date: 09/05/21 Principal diagnosis: Pneumonia Patient is a 30-year-old female with a past medical history significant for end-stage renal disease on dialysis presented to the hospital w ith a fever of left lower chest pain concerning for pneumonia. On today's evaluation that is 09/05/2021, The patient remains to be afebrile,the patient is breathing comfortably on room air , the patient continued to be complaining of chest pain from coughing however at the same time mention getting better, patient with no worsening cough or sputum production, patient denies nausea no vomiting no abdominal pain and no diarrhea Objective - Vital Signs Vital signs: Vital Signs Temp 98.3 F 09/05/21 11:31 Pulse 84 09/05/21 11:31 Resp 18 09/05/21 11:31 BP 169/90 09/05/21 11:31 Pulse Ox 98 09/05/21 11:31 Intake & Output 09/04/21 09/05/21 09/05/21 18:59 06:59 18:59 Intake Total 420 130 Output Total 0 Balance 420 130 Weight 47.5 kg Intake: IV 10 0.9 10 Oral 420 120 Output: Urine 0 Other: Voiding Method Toilet Toilet Toilet # Voids 1 0 # Bowel Movements 1 - Exam GENERAL DESCRIPTION: Middle-age female lying in bed in no distress RESPIRATORY SYSTEM: Unlabored breathing , decreased breath sounds at bases HEART: S1 S2 regular rate and rhythm , ABDOMEN: Soft , no tenderness EXTREMITIES: No edema feet - Labs CBC & Chem 7: 09/04/21 08:37 09/04/21 08:37 Labs: Abnormal Lab Results - Last 24 Hours (Table) 09/04/21 09/04/21 09/04/21 Range/Units 16:57 20:22 22:52 POC Glucose (mg/dL) 565 H 492 H 288 H (75-99) mg/dL 09/05/21 09/05/21 Range/Units 05:48 11:37 POC Glucose (mg/dL) 218 H 371 H (75-99) mg/dL Microbiology - Last 24 Hours (Table) 08/31/21 04:53 Blood Culture - Preliminary Blood No Growth after 120 hours 09/01/21 15:47 Blood Culture - Preliminary Blood No Growth after 72 hours Assessment and Plan (1) Sepsis due to pneumonia Current Visit: Yes Status: Acute Code(s): J18.9 - PNEUMONIA, UNSPECIFIED ORGANISM; A41.9 - SEPSIS, UNSPECIFIED ORGANISM SNOMED Code(s): 33109940 Plan: 1patient presented to hospital with fever in this patient also have a left lower rib cage pain which is pleuritic concerning for possible pneumonia and question of possible aspiration etiology recently completed course of oral Augmentin. 2 Patient did have a repeat cultures which are negative chest x-ray did not show any worsening pneumonia however the patient is spiking fever again and also noticed to have significant leukopenia, patient did have a CT of abdominal pelvis which did shows overall improvement in the lower lung lobes and also mentioned some distention of the stomach and a question of possible recurrent aspiration pneumonitis to be responsible for these recurrent fevers and may benefit from strict aspiration precautions patient has received adequate vancomycin therapy and recommend transitioning to a short course of oral Avelox and doxycycline on discharge Time with Patient: Less than 30
[2021-09-06] MEDS: HYDROmorphone 0.5 MG/0.5 ML SYRINGE IVP PRN ×2 (01:00→08:29)
[2021-09-06 06:07] LABS: Glucose,Whole Blood 218 mg/dL (75-99)
[2021-09-06] MEDS: carvediloL 12.5 MG TAB PO SCH ×2 (06:33→16:08)
[2021-09-06] MEDS: SEVELAMER 800 MG TAB PO SCH ×2 (06:34→18:03)
[2021-09-06] MEDS: INSULIN ASPART (NovoLOG) 100 UNIT/ML VIAL SQ SCH ×2 (06:34→12:34)
[2021-09-06 09:27] LABS: Calcium 9.3 mg/dL (8.4-10.2); Potassium 5.5 mmol/L (3.5-5.1)
[2021-09-06 09:34] LABS: Anisocytosis Slight; HCT 28.9 % (34.0-46.0); HGB 9.7 gm/dL (11.4-16.0); MCH 30.2 pg (25.0-35.0); MCHC 33.7 g/dL (31.0-37.0); MCV 89.7 fL (80.0-100.0); Mean Platelet Volume 8.7; Platelet Count 275 k/uL (150-450); RBC 3.22 m/uL (3.80-5.40); WBC 4.5 k/uL (3.8-10.6)
--- NOTE | 2021-09-06 09:48 | P.PN ---
Subjective Patient is seen in follow-up for end-stage renal disease. She is maintained on hemodialysis on Monday schedule. Denies chest pain or shortness of breath. Blood pressure controlled overnight. No complaints at this time. Scheduled for dialysis today. Plan for discharge home today. Vital signs are stable. General: Resting in bed. Alert. HEENT: Head exam is unremarkable. LUNGS: Breath sounds decreased. HEART: Rate and Rhythm are regular. ABDOMEN: Soft, no distention. EXTREMITITES: No edema. Objective - Vital Signs Vital signs: Vital Signs Temp 98.5 F 09/06/21 08:15 Pulse 79 09/06/21 08:15 Resp 16 09/06/21 08:15 BP 133/67 09/06/21 08:15 Pulse Ox 97 09/06/21 08:15 Intake & Output 09/05/21 09/06/21 09/06/21 18:59 06:59 18:59 Intake Total 248 240 Balance 248 240 Intake: IV 10 0.9 10 Oral 238 240 Other: Voiding Method Toilet - Labs CBC & Chem 7: 09/06/21 08:13 09/04/21 08:37 Labs: Abnormal Lab Results - Last 24 Hours (Table) 09/05/21 09/05/21 09/05/21 Range/Units 11:37 16:29 20:14 RBC (3.80-5.40) m/uL Hgb (11.4-16.0) gm/dL Hct (34.0-46.0) % RDW (11.5-15.5) % POC Glucose (mg/dL) 371 H 447 H 357 H (75-99) mg/dL 09/06/21 09/06/21 Range/Units 06:05 08:13 RBC 3.22 L (3.80-5.40) m/uL Hgb 9.7 L (11.4-16.0) gm/dL Hct 28.9 L (34.0-46.0) % RDW 16.0 H (11.5-15.5) % POC Glucose (mg/dL) 218 H (75-99) mg/dL Microbiology - Last 24 Hours (Table) 08/31/21 04:53 Blood Culture - Final Blood No Growth after 144 hours 09/01/21 15:47 Blood Culture - Preliminary Blood No Growth after 96 hours Assessment and Plan Plan: Assessment: 1. End-stage renal disease maintained on hemodialysis on Monday schedule. 2. Hypertension with chronic kidney disease. Blood pressure labile. Controlled this morning. 3. Volume overload with pericardial and pleural effusion. Hydralazine and minoxidil have been discontinued due to pericardial effusion. 4. Diabetes mellitus. 5. Pneumonia on antibiotics. 6. Anemia of chronic kidney disease. That is post IV iron. On Aranesp. 7. Metabolic acidosis secondary to chronic kidney disease. Improved postdialysis. 8. Hyponatremia secondary to hyperglycemia Chronic kidney disease. Improved postdialysis and better blood sugar control. 9. Mild hyperkalemia secondary to metabolic acidosis and hyperglycemia. Improved postdialysis. 10. Chronic kidney disease mineral bone disease maintain Renvela. Phosphorus 3.6 dated 08/23/2021. 11. Chronic diastolic CHF. Plan: Hemodialysis today. Tight blood sugar control. Patient has been advised multiple times to be compliant with hemodialysis treatments and medications. She has also been advised to come for extra treatments outpatient to help with ultrafiltration. Monitor vancomycin levels. Dose to be adjusted for renal function. Vanco level high at 31.5 today.
[2021-09-06 11:33] LABS: Eosinophils # (M) 0.32 k/uL (0-0.7); Lymphocytes # (M) 0.72 k/uL (1.0-4.8); Metamyelocytes # (M) 0.05 k/uL (0); Metamyelocytes % 1 %; Monocytes # (M) 0.36 k/uL (0-1.0); Neutrophils # (M) 3.11 k/uL (1.3-7.7); Neutrophils % (M) 69 %; Nucleated Red Blood Cells 1 /100 WBC (0-0); Total Cells Counted 200
[2021-09-06 11:43] LABS: Glucose,Whole Blood 151 mg/dL (75-99)
[2021-09-06] MEDS ORDERED: diphenhydrAMINE 50 MG/ML 1 ML VIAL IVP PRN (12:11)
[2021-09-06] MEDS: HYDROcodone/APAP 5-325MG 1 EACH TAB PO PRN (14:22)
[2021-09-06 14:36] VITALS: BP 125/78; RESP 20; TEMP 97.6
[2021-09-06 14:51] VITALS: PULSE 80
[2021-09-06] MEDS: NIFEdipine XL 90 MG TAB.ER.24 PO SCH (16:08)
[2021-09-06] MEDS: ASPIRIN 81 MG PO SCH (16:08)
[2021-09-06] MEDS: cloNIDine HCL 0.1 MG TAB PO SCH ×2 (16:08→16:09)
[2021-09-06] MEDS: CYANOCOBALAMIN 500 MCG TAB PO SCH (16:08)
[2021-09-06] MEDS: lisinopriL 20 MG TAB PO SCH (16:09)
[2021-09-06] MEDS: ESCITALOPRAM 20 MG TAB PO SCH (16:09)
[2021-09-06] MEDS: PANTOPRAZOLE 40 MG TABLET PO SCH (16:09)
[2021-09-06] MEDS: HEPARIN SODIUM,PORCINE/PF 5,000 UNIT/0.5 ML SYRINGE SQ SCH (18:01)
[2021-09-06] MEDS: MEGESTROL 400 MG/10 ML CUP PO SCH (18:01)
--- NOTE | 2021-09-07 14:09 | P.DS ---
Providers Date of admission: 08/15/21 18:43 Expected date of discharge: 09/06/21 Attending physician: Hector Pena Consults: 08/15/21 18:14 Consult Physician Urgent Consulting Provider: Aurelia Poe Consult Reason/Comments: Needs dialysis tomorrow, infection of unknown origin Do you want consulting provider notified?: Yes 08/16/21 13:05 Consult Physician Routine Consulting Provider: Falguni Gracia Consult Reason/Comments: Pneumonia Do you want consulting provider notified?: Yes 08/24/21 11:02 Consult Physician Urgent Consulting Provider: Margarito Pérez Consult Reason/Comments: recurrent infection , hard to treat , r/o malignancy Do you want consulting provider notified?: Yes Primary care physician: Stated None Hospital Course: Final diagnosis -Sepsis: Secondary to bilateral interstitial multifocal pneumonia -End-stage renal disease, hemodialysis dependent monday -Hyponatremia secondary to chronic kidney disease -Hyperkalemia secondary to chronic renal disease -Anemia, chronic maintained on aranesp -Type 1 diabetes mellitus, uncontrolled with hyperglycemia as well as hypoglycemia, brittle -Pericardial effusion -Pleuritic chest pain and a parapneumonic effusion -Hypertension secondary to renal disease -Depression -DVT prophylaxis -GI prophylaxis -Full Code Discharge disposition Patient is being discharged in a stable condition with guarded prognosis to home. Patient will follow-up with Dr. Cruz in the outpatient setting upon discharge. Patient is to follow with endocrine as scheduled. She will continue on oral Avelox 400 mg daily for the next one week to complete the course. Total time taken is greater than 35 minutes. Hospital course This is a 30-year-old female who was recently admitted with sepsis secondary to bilateral interstitial multifocal pneumonia and was being closely monitored. Multiple medical consultations including nephrology and infectious disease following closely. Patient has had prolonged hospitalization and maintained on IV antibiotics and will continue with oral Avelox 400 mg daily for the next 7 days to complete the course. Patient will also be provided with doxycycline 100 mg twice daily for the one week per infectious disease recommendations. Patient will continue on hemodialysis Monday/Monday/Monday and close outpatient follow-up with nephrology. Patient encouraged to follow-up with endocrine for her extremely brittle diabetes. Patient is receiving hemodialysis today and would like to be discharged after this. Currently no reports of chest pain, worsening shortness of breath, or palpitations. Patient is afebrile. No reports of nausea or vomiting and patient is tolerating diet. Encouraged incentive spirometer use at least 10 times every hour while awake along with continued coughing and deep breathing and highly recommending close outpatient follow-up with multiple medical consultations. Patient will be discharged home today. Extremely guarded prognosis as patient is high risk for multiple readmissions. Physical exam: GENERAL: The patient is alert and oriented x3, ill appearing, fatigued. Pale. HEENT: Pupils are round and equally reacting to light. EOMI. No scleral icterus. No conjunctival pallor. Normocephalic, atraumatic. No pharyngeal erythema. No thyromegaly. CARDIOVASCULAR: S1 and S2 muffled PULMONARY: Chest is diminished bilaterally, no wheezing, crackles noted. ABDOMEN: Soft, nontender, nondistended, normoactive bowel sounds. No palpable organomegaly. dry cough on exam MUSCULOSKELETAL: No joint swelling or deformity. EXTREMITIES: No cyanosis, clubbing, or pedal edema. NEUROLOGICAL: Gross neurological examination did not reveal any focal deficits. SKIN: No rashes. Please refer to medication reconciliation sheet for a list of medications. The impression and plan of care has been dictated by Cindi Saha, Nurse Practitioner as directed. Dr. Sudeep MD I have performed a history and examination and MDM of this patient, discussed the same with the dictator, and agree with the dictator's assessment and plan as written ,documented as a scribe. Based on total visit time, I have performed more than 50% of the visit. Patient Condition at Discharge: Fair Plan - Discharge Summary New Discharge Prescriptions: New Moxifloxacin HCl [Avelox] 400 mg PO DAILY 7 Days #7 tablet Megestrol [Megace] 400 mg PO DAILY #30 ml HYDROcodone/APAP 5-325MG [[place] 5-325] 1 each PO Q6HR PRN #12 tab PRN Reason: Pain INSULIN ASPART (NovoLOG) [NovoLOG (formulary)] 0 unit SQ ACHS ml NIFEdipine XL [Procardia XL] 90 mg PO DAILY #30 tablet Cyanocobalamin [Vitamin B-12] 1,000 mcg PO DAILY #60 tab lisinopriL [Zestril] 20 mg PO DAILY #30 tab Darbepoetin Tate [Aranesp] 60 mcg SQ Q7D each Albuterol Inhaler [Ventolin Hfa Inhaler] 1 puff INHALATION RT-QID PRN 30 Days #8 gm PRN Reason: Shortness Of Breath Doxycycline [Vibramycin] 100 mg PO BID 7 Days #14 capsule Continue Aspirin EC [Ecotrin Low Dose] 81 mg PO DAILY Escitalopram [Lexapro] 20 mg PO DAILY rOPINIRole HCL [Requip] 0.5 mg PO HS Sevelamer [Renvela] 800 mg PO TID-W/MEALS 30 Days #90 tab Glucagon Emergency Kit 1 mg IM ONCE PRN #1 kit PRN Reason: Hypoglycemia cloNIDine HCL [Catapres] 0.3 mg PO TID tab Isosorbide Mononitrate ER [Imdur] 30 mg PO HS Ergocalciferol (Vitamin D2) [Drisdol (50,000 Iu)] 1,250 mcg PO COPELAND Carvedilol [Coreg] 25 mg PO BID Acetaminophen Tab [Tylenol] 650 mg PO Q6HR PRN #30 tab PRN Reason: Fever And/ Or Pain Pantoprazole Sodium [Protonix] 40 mg PO BID 30 Days #60 tab Melatonin 5 - 10 mg PO HS PRN PRN Reason: Insomnia Changed Insulin Detemir (Levemir) [Levemir] 13 unit SQ HS #10 ml Discontinued Furosemide [Lasix] 80 mg PO BID #60 tab minoxidiL [Loniten] 2.5 mg PO BID #60 tab Insulin Lispro [humaLOG Kwikpen] See Protocol SQ AC-TID Amoxicillin/Potassium Clav [Augmentin 500-125 Tablet] 1 tab PO Q12HR 7 Days #14 tab INSULIN ASPART (NovoLOG) [NovoLOG (formulary)] 2 unit SQ AC-TID 30 Days #10 ml Discharge Medication List Aspirin EC [Ecotrin Low Dose] 81 mg PO DAILY 04/03/21 [History] Carvedilol [Coreg] 25 mg PO BID 04/03/21 [History] Ergocalciferol (Vitamin D2) [Drisdol (50,000 Iu)] 1,250 mcg PO COPELAND 04/03/21 [History] Isosorbide Mononitrate ER [Imdur] 30 mg PO HS 04/03/21 [History] Acetaminophen Tab [Tylenol] 650 mg PO Q6HR PRN #30 tab 04/09/21 [Rx] Escitalopram [Lexapro] 20 mg PO DAILY 04/17/21 [History] rOPINIRole HCL [Requip] 0.5 mg PO HS 04/17/21 [History] Sevelamer [Renvela] 800 mg PO TID-W/MEALS 30 Days #90 tab 05/31/21 [Rx] Pantoprazole Sodium [Protonix] 40 mg PO BID 30 Days #60 tab 06/04/21 [Rx] Glucagon Emergency Kit 1 mg IM ONCE PRN #1 kit 06/15/21 [Rx] Melatonin 5 - 10 mg PO HS PRN 06/29/21 [History] cloNIDine HCL [Catapres] 0.3 mg PO TID tab 08/07/21 [Rx] Albuterol Inhaler [Ventolin Hfa Inhaler] 1 puff INHALATION RT-QID PRN 30 Days #8 gm 09/06/21 [Rx] Cyanocobalamin [Vitamin B-12] 1,000 mcg PO DAILY #60 tab 09/06/21 [Rx] Darbepoetin Tate [Aranesp] 60 mcg SQ Q7D each 09/06/21 [Rx] Doxycycline [Vibramycin] 100 mg PO BID 7 Days #14 capsule 09/06/21 [Rx] HYDROcodone/APAP 5-325MG [[place] 5-325] 1 each PO Q6HR PRN #12 tab 09/06/21 [Rx] INSULIN ASPART (NovoLOG) [NovoLOG (formulary)] 0 unit SQ ACHS ml 09/06/21 [Rx] Insulin Detemir (Levemir) [Levemir] 13 unit SQ HS #10 ml 09/06/21 [Rx] Megestrol [Megace] 400 mg PO DAILY #30 ml 09/06/21 [Rx] Moxifloxacin HCl [Avelox] 400 mg PO DAILY 7 Days #7 tablet 09/06/21 [Rx] NIFEdipine XL [Procardia XL] 90 mg PO DAILY #30 tablet 09/06/21 [Rx] lisinopriL [Zestril] 20 mg PO DAILY #30 tab 09/06/21 [Rx] Follow up Appointment(s)/Referral(s): Edith Cruz MD [STAFF PHYSICIAN] - 09/07/21 1:15 pm Jon Coon MD [REFERRING] - 1 Week (Need to get appointment set up and approved by PCP per Cathie at Dr. Coon office) Activity/Diet/Wound Care/Special Instructions: Activity Limited until follow-up Follow-up with primary care provider on discharge Follow up with endocrine outpatient as soon as possible Continue with hemodialysis Monday/Monday/Monday Continue taking medications as prescribed Continue monitoring blood sugars very closely and keep a diary for primary care follow-up Discharge Disposition: HOME SELF-CARE
== END 2021-09-06 18:30 | disposition home or self-care (01) | DRG 871 ==
LOC: EC 14:42 → 4SSUR 18:43 → UNDODISIN 08-21 12:53 → 3SCARD 09-01 01:28
PROVIDERS: ADMIT Hospitalist; ATTEND Hospitalist
PROC: 5A1D70Z Performance of Urinary Filtration, Intermittent, Less than 6 Hours Per Day (ICD-10-PCS; principal; 2021-08-16)
PROC: 30233N1 Transfusion of Nonautologous Red Blood Cells into Peripheral Vein, Percutaneous Approach (ICD-10-PCS; 2021-08-17)
DX: A41.9 Sepsis, unspecified organism (principal); N18.6 End stage renal disease; J84.114 Acute interstitial pneumonitis; D61.818 Other pancytopenia; I13.2 Hypertensive heart and chronic kidney disease with heart failure and with stage 5 chronic kidney disease, or end stage renal disease; E87.2 Acidosis; I31.3 Pericardial effusion (noninflammatory); E87.1 Hypo-osmolality and hyponatremia; I50.32 Chronic diastolic (congestive) heart failure; E10.40 Type 1 diabetes mellitus with diabetic neuropathy, unspecified; E10.649 Type 1 diabetes mellitus with hypoglycemia without coma; E10.319 Type 1 diabetes mellitus with unspecified diabetic retinopathy without macular edema; D63.1 Anemia in chronic kidney disease; I27.20 Pulmonary hypertension, unspecified; E10.65 Type 1 diabetes mellitus with hyperglycemia; E10.22 Type 1 diabetes mellitus with diabetic chronic kidney disease; Z99.2 Dependence on renal dialysis; Z79.4 Long term (current) use of insulin; Z20.822 Contact with and (suspected) exposure to COVID-19; E83.9 Disorder of mineral metabolism, unspecified; I95.9 Hypotension, unspecified; D50.9 Iron deficiency anemia, unspecified; H54.8 Legal blindness, as defined in USA; E87.5 Hyperkalemia; I07.1 Rheumatic tricuspid insufficiency; G25.81 Restless legs syndrome; F32.A Depression, unspecified; F41.9 Anxiety disorder, unspecified; R04.0 Epistaxis; R32 Unspecified urinary incontinence; M62.830 Muscle spasm of back; R74.01 Elevation of levels of liver transaminase levels; T46.5X5A Adverse effect of other antihypertensive drugs, initial encounter; T46.7X5A Adverse effect of peripheral vasodilators, initial encounter; Z79.82 Long term (current) use of aspirin; Z79.899 Other long term (current) drug therapy; Z87.01 Personal history of pneumonia (recurrent); Z86.73 Personal history of transient ischemic attack (TIA), and cerebral infarction without residual deficits; Z90.49 Acquired absence of other specified parts of digestive tract; Z87.19 Personal history of other diseases of the digestive system; Z98.890 Other specified postprocedural states; Z98.891 History of uterine scar from previous surgery; Z91.013 Allergy to seafood; Z88.8 Allergy status to other drugs, medicaments and biological substances; Z91.018 Allergy to other foods; Z82.49 Family history of ischemic heart disease and other diseases of the circulatory system; Z82.0 Family history of epilepsy and other diseases of the nervous system; Z80.8 Family history of malignant neoplasm of other organs or systems; Z81.8 Family history of other mental and behavioral disorders
CPT/HCPCS: 36415; 71045; 71046; 71250; 74176; 80048; 80053; 80202; 81001; 82009; 82565; 82607; 82668; 82728; 82747; 82947; 83010; 83036; 83540; 83550; 83605; 83615; 83735; 83880; 83883; 83921; 84100; 84145; 84165; 84443; 85025; 85045; 86038; 86140; 86334; 86431; 86850; 86900; 86901; 86920; 87040; 87449; 87502; 87635; 90935; 93005; 93306; 94640; 94760; 96365; 96375; 99285

== ENCOUNTER 2021-09-20 20:38 | Inpatient (IN) | payer MEDICARE, OTHER ==
--- NOTE | 2021-09-20 22:52 | XR ---
EXAMINATION TYPE: XR chest 2V DATE OF EXAM: 09/20/2021 COMPARISON: 08/31/2021 HISTORY: Chest pain TECHNIQUE: 2 views FINDINGS: Heart appears enlarged. There is some pulmonary interstitial infiltrates and more on the ri ght side. Costophrenic angles show some blunting on the right side. Bony thorax appears intact. IMPRESSION: Cardiomegaly with right pleural effusion and some pulmonary interstitial edema. This coul d be congestive heart failure. This appears new compared to old exam. Cardiomegaly unchanged.
[2021-09-20 22:57] LABS: Anisocytosis Slight; Basophils # (A) 0.2 k/uL (0-0.2); Basophils % (A) 2 %; Eosinophils # (A) 0.3 k/uL (0-0.7); Eosinophils % (A) 4 %; HCT 30.7 % (34.0-46.0); HGB 10.1 gm/dL (11.4-16.0); Lymphocytes # (A) 0.8 k/uL (1.0-4.8); Lymphocytes % (A) 10 %; MCH 29.8 pg (25.0-35.0); MCHC 32.8 g/dL (31.0-37.0); MCV 90.7 fL (80.0-100.0); Mean Platelet Volume 9.5; Monocytes # (A) 0.4 k/uL (0-1.0); Monocytes % (A) 5 %; Neutrophils # (A) 6.2 k/uL (1.3-7.7); Neutrophils % (A) 78 %; Platelet Count 188 k/uL (150-450); RBC 3.38 m/uL (3.80-5.40); WBC 7.9 k/uL (3.8-10.6)
[2021-09-20 23:05] LABS: INR 0.9 (<1.2); Partial Thromboplastin Time 22.2 sec (22.0-30.0); Prothrombin Time 9.9 sec (9.0-12.0)
[2021-09-20 23:09] LABS: Albumin 3.8 g/dL (3.5-5.0); Calcium 7.4 mg/dL (8.4-10.2); Potassium 5.5 mmol/L (3.5-5.1); Total Bilirubin 0.7 mg/dL (0.2-1.3); Total Protein 6.3 g/dL (6.3-8.2)
[2021-09-21] MEDS ORDERED: NITROGLYCERIN-D5W PMX 50 MG in DEXTROSE/WATER 1 250ML.BAG IV ONE (00:25)
[2021-09-21] MEDS ORDERED: METOCLOPRAMIDE 5 MG/ML 2 ML VIAL IVP STA ×2 (00:29→03:36)
[2021-09-21] MEDS ORDERED: diphenhydrAMINE 50 MG/ML 1 ML VIAL IVP STA (00:29)
[2021-09-21] MEDS ORDERED: INSULIN REGULAR BOLUS (FROM DRIP BAG) IV ONE (00:29)
[2021-09-21] MEDS ORDERED: MORPHINE SULFATE 4 MG/ML SYRINGE IVP STA (00:29)
[2021-09-21] MEDS ORDERED: NALOXONE 0.4 MG/ML 1 ML VIAL IV PRN (00:51)
[2021-09-21] MEDS ORDERED: HEPARIN SODIUM 1,000 UN/ML (10ML VL) IV PRN (00:59)
[2021-09-21] MEDS ORDERED: HEPARIN SODIUM 1,000 UN/ML (10ML VL) IV ONE (00:59)
[2021-09-21] MEDS ORDERED: HEPARIN SOD,PORK IN 0.45% NACL 25,000 UNIT in 0.45% NACL 1 250ML.BAG IV SCH (01:00)
[2021-09-21] MEDS: INSULIN REGULAR 100 UNIT in SODIUM CHLORIDE 0.9% 100 ML IV SCH ×2 (01:16→23:10)
--- NOTE | 2021-09-21 01:22 | ED ---
General Adult HPI - General Chief complaint: Chest Pain Stated complaint: Missed Dialysis, Difficulty Breathing, Vomiting Time Seen by Provider: 09/21/21 00:10 Source: patient Mode of arrival: ambulatory Limitations: no limitations - History of Present Illness Initial comments: Patsy is a 30-year-old female with a history of type 1 diabetes, end-stage renal disease on dialysis Monday. Patient attended dialysis on Monday but was unable to attend this morning. Throughout the day patient developed worsening chest pain, shortness of breath, nausea and vomiting. This prompted her to come to the ER for further evaluation. - Related Data Home Medications Medication Instructions Recorded Confirmed Aspirin EC [Ecotrin Low Dose] 81 mg PO DAILY 04/03/21 08/15/21 Carvedilol [Coreg] 25 mg PO BID 04/03/21 08/15/21 Ergocalciferol (Vitamin D2) 1,250 mcg PO COPELAND 04/03/21 08/15/21 [Drisdol (50,000 Iu)] Isosorbide Mononitrate ER [Imdur] 30 mg PO HS 04/03/21 08/15/21 Escitalopram [Lexapro] 20 mg PO DAILY 04/17/21 08/15/21 rOPINIRole HCL [Requip] 0.5 mg PO HS 04/17/21 08/15/21 Melatonin 5 - 10 mg PO HS PRN 06/29/21 08/15/21 Previous Rx's Medication Instructions Recorded Acetaminophen Tab [Tylenol] 650 mg PO Q6HR PRN #30 tab 04/09/21 Sevelamer [Renvela] 800 mg PO TID-W/MEALS 30 Days #90 05/31/21 tab Pantoprazole Sodium [Protonix] 40 mg PO BID 30 Days #60 tab 06/04/21 Glucagon Emergency Kit 1 mg IM ONCE PRN #1 kit 06/15/21 cloNIDine HCL [Catapres] 0.3 mg PO TID tab 08/07/21 Albuterol Inhaler [Ventolin Hfa 1 puff INHALATION RT-QID PRN 30 09/06/21 Inhaler] Days #8 gm Cyanocobalamin [Vitamin B-12] 1,000 mcg PO DAILY #60 tab 09/06/21 Darbepoetin Tate [Aranesp] 60 mcg SQ Q7D each 09/06/21 Doxycycline [Vibramycin] 100 mg PO BID 7 Days #14 capsule 09/06/21 HYDROcodone/APAP 5-325MG [[place] 1 each PO Q6HR PRN #12 tab 09/06/21 5-325] INSULIN ASPART (NovoLOG) [NovoLOG 0 unit SQ ACHS ml 09/06/21 (formulary)] Insulin Detemir (Levemir) [Levemir] 13 unit SQ HS #10 ml 09/06/21 Megestrol [Megace] 400 mg PO DAILY #30 ml 09/06/21 Moxifloxacin HCl [Avelox] 400 mg PO DAILY 7 Days #7 tablet 09/06/21 NIFEdipine XL [Procardia XL] 90 mg PO DAILY #30 tablet 09/06/21 lisinopriL [Zestril] 20 mg PO DAILY #30 tab 09/06/21 Allergies Allergy/AdvReac Type Severity Reaction Status Date / Time Fish Containing Products Allergy Rash/Hives Verified 09/20/21 21:44 [Fish] iodine Allergy Anaphylaxis Verified 09/20/21 21:44 Review of Systems ROS Statement: Those systems with pertinent positive or pertinent negative responses have been documented in the HPI. ROS Other: All systems not noted in ROS Statement are negative. Past Medical History Past Medical History: CVA/TIA, Diabetes Mellitus, Dialysis, Eye Disorder, Hypertension, Renal Disease Additional Past Medical History / Comment(s): ESRD with hemodialysis M/W/F, IDDM type 1, DKA, neuropathy bilateral legs/feet, diabetic retinopathy/legally blind, RLS, gastritis, severe hypokalemia, fluid retention in abdomin/legs. History of Any Multi-Drug Resistant Organisms: None Reported Past Surgical History: Appendectomy, Section, Cholecystectomy Additional Past Surgical History / Comment(s): fistula left arm Past Anesthesia/Blood Transfusion Reactions: No Reported Reaction Past Psychological History: Anxiety, Depression Smoking Status: Never smoker Past Alcohol Use History: None Reported Past Drug Use History: None Reported - Past Family History Mother Family Medical History: Cancer, Hypertension Additional Family Medical History / Comment(s): Thyroid cancer, bipolar Father Family Medical History: Seizure Disorder Additional Family Medical History / Comment(s): Epilepsy General Exam - General Exam Comments Initial Comments: Physical Exam GENERAL: Chronically ill-appearing female, underweight, acute distress HENT: Normocephalic, Atraumatic. EYES: Blind PULMONARY: Crackles bilaterally CARDIOVASCULAR: Tachycardic Left forearm fistula ABDOMEN: Non-distended SKIN: Pale : Deferred NEUROLOGIC: Alert and oriented MUSCULOSKELETAL: Moving all extremities with no apparent injury PSYCHIATRIC: No SI/HI Limitations: no limitations Course Vital Signs 09/20/21 09/20/21 09/21/21 21:44 22:58 01:00 Temperature 98.2 F Pulse Rate 86 98 104 H Respiratory 18 18 26 H Rate Blood Pressure 245/117 249/123 225/112 O2 Sat by Pulse 98 95 90 L Oximetry 09/21/21 09/21/21 09/21/21 02:00 02:18 02:20 Temperature Pulse Rate 100 144 H 124 H Respiratory 22 Rate Blood Pressure 225/120 O2 Sat by Pulse 99 Oximetry EKG Findings - EKG Comments: EKG Findings:: EKG was obtained at 2233 rate is 93 rhythm sinus DC 161 QRS 89 QTC [address] elevations or depressions no evidence of acute ischemia or infarction. Medical Decision Making - Medical Decision Making The patient was seen and evaluated, labs were obtained in triage and resulted with multiple critical abnormalities including elevated creatinine and BUN, elevated troponin, and a critical glucose of greater than 600 Patient was placed in a monitored bed, IV access was obtained fluids were initiated, EKG was obtained Patient was started on nitro infusion for hypertensive emergency, insulin infusion for DKA and after discussion with nephrology and cardiology she was started on heparin infusion for elevated troponin likely related to hypertensive emergency Patient care was discussed with Dr. Chase nephrology, who will order for emergent dialysis Dr. Ordonez ICU, who accepts patient to the ICU Dr. Astorga medicine who accepts admission Dr. Dodge cardiology who recommends heparin, nitro, dialysis and trend troponin - Lab Data Result diagrams: 09/20/21 22:42 09/21/21 03:24 Lab Results 09/20/21 09/20/21 09/20/21 Range/Units 22:42 22:42 22:42 WBC 7.9 (3.8-10.6) k/uL RBC 3.38 L (3.80-5.40) m/uL Hgb 10.1 L (11.4-16.0) gm/dL Hct 30.7 L (34.0-46.0) % MCV 90.7 (80.0-100.0) fL MCH 29.8 (25.0-35.0) pg MCHC 32.8 (31.0-37.0) g/dL RDW 17.0 H (11.5-15.5) % Plt Count 188 (150-450) k/uL MPV 9.5 Neutrophils % 78 % Lymphocytes % 10 % Monocytes % 5 % Eosinophils % 4 % Basophils % 2 % Neutrophils # 6.2 (1.3-7.7) k/uL Lymphocytes # 0.8 L (1.0-4.8) k/uL Monocytes # 0.4 (0-1.0) k/uL Eosinophils # 0.3 (0-0.7) k/uL Basophils # 0.2 (0-0.2) k/uL Anisocytosis Slight PT 9.9 (9.0-12.0) sec INR 0.9 (<1.2) APTT 22.2 (22.0-30.0) sec Sodium 131 L (137-145) mmol/L Potassium 5.5 H (3.5-5.1) mmol/L Chloride 94 L (98-107) mmol/L Carbon Dioxide 19 L (22-30) mmol/L Anion Gap 18 mmol/L BUN 75 H (7-17) mg/dL Creatinine 11.11 H* (0.52-1.04) mg/dL Est GFR (CKD-EPI)AfAm 5 (>60 ml/min/1.73 sqM) Est GFR (CKD-EPI)NonAf 4 (>60 ml/min/1.73 sqM) Glucose 641 H* (74-99) mg/dL Calcium 7.4 L (8.4-10.2) mg/dL Magnesium 2.0 (1.6-2.3) mg/dL Total Bilirubin 0.7 (0.2-1.3) mg/dL AST 39 H (14-36) U/L ALT 44 H (4-34) U/L Alkaline Phosphatase 219 H (38-126) U/L Troponin I (0.000-0.034) ng/mL Total Protein 6.3 (6.3-8.2) g/dL Albumin 3.8 (3.5-5.0) g/dL 09/20/21 Range/Units 22:42 WBC (3.8-10.6) k/uL RBC (3.80-5.40) m/uL Hgb (11.4-16.0) gm/dL Hct (34.0-46.0) % MCV (80.0-100.0) fL MCH (25.0-35.0) pg MCHC (31.0-37.0) g/dL RDW (11.5-15.5) % Plt Count (150-450) k/uL MPV Neutrophils % % Lymphocytes % % Monocytes % % Eosinophils % % Basophils % % Neutrophils # (1.3-7.7) k/uL Lymphocytes # (1.0-4.8) k/uL Monocytes # (0-1.0) k/uL Eosinophils # (0-0.7) k/uL Basophils # (0-0.2) k/uL Anisocytosis PT (9.0-12.0) sec INR (<1.2) APTT (22.0-30.0) sec Sodium (137-145) mmol/L Potassium (3.5-5.1) mmol/L Chloride (98-107) mmol/L Carbon Dioxide (22-30) mmol/L Anion Gap mmol/L BUN (7-17) mg/dL Creatinine (0.52-1.04) mg/dL Est GFR (CKD-EPI)AfAm (>60 ml/min/1.73 sqM) Est GFR (CKD-EPI)NonAf (>60 ml/min/1.73 sqM) Glucose (74-99) mg/dL Calcium (8.4-10.2) mg/dL Magnesium (1.6-2.3) mg/dL Total Bilirubin (0.2-1.3) mg/dL AST (14-36) U/L ALT (4-34) U/L Alkaline Phosphatase (38-126) U/L Troponin I 0.145 H* (0.000-0.034) ng/mL Total Protein (6.3-8.2) g/dL Albumin (3.5-5.0) g/dL Critical Care Time Critical Care Time: Yes Critical Care Time: Critical Care Time 45min Critical care time was exclusive of separately billable procedures and treating other patients and teaching time. Critical care was necessary to treat or prevent imminent or life-threatening deterioration. Given the critical condition in which the patient arrived, the patient was immediately assessed by myself and the nurse, and cardiac monitoring initiated due to the potential for rapid decompensation of the patient's clinical condition. During the course of the patients stay, I spent a considerable amount of time at the bedside performing serial re-evaluations of the patient's hemodynamic and clinical status because of the recognized potential threat to life or limb in this condition. I then had a chance to review not only all of the available current laboratory and radiographic studies obtained today, but I also reviewed old records available to me at the time. Additionally, any ancillary information available including phlebotomy technician records were reviewed. Sequential vital signs were obtained. Disposition Clinical Impression: Acute pulmonary edema, DKA (diabetic ketoacidosis), ESRD (end stage renal dis ease) on dialysis, Missed dialysis, Congestive heart failure Disposition: ADMITTED IP TO THIS HOSP Condition: Critical Is patient prescribed a controlled substance at d/c from ED?: No
[2021-09-21] MEDS ORDERED: ONDANSETRON 4 MG/2 ML VIAL IVP STA (01:33)
[2021-09-21 01:47] LABS: Glucose,Whole Blood >600 mg/dL (75-99)
[2021-09-21 02:20] LABS: Glucose,Whole Blood 599 mg/dL (75-99)
[2021-09-21 02:27] LABS: VBG PH 7.26 (7.31-7.41)
[2021-09-21 03:01] LABS: Glucose,Whole Blood 524 mg/dL (75-99)
[2021-09-21] MEDS ORDERED: ASPIRIN 81 MG PO STA (03:34)
--- NOTE | 2021-09-21 03:37 | P.HPIM ---
History of Present Illness H&P Date: 09/21/21 Patient is a 30-year-old female with a PMH of type I DM, complicated by diabetic retinopathy and cataracts, ESRD on hemodialysis, hypertension, asthma, who presents to the emergency room with complaints of shortness of breath, nausea, and chest pain. The patient reports that she missed his regularly scheduled dialysis session earlier today since her 2-year-old child was sick in the hospital. She reports that as a result, she quickly developed shortness of breath along with severe nausea with too many episodes of vomiting, nonbloody nonbilious, to count. She also reports having developed substernal chest discomfort shortly after arriving to the emergency room, stating that it is 6 out of 10 at the time of interview. Reports that the pain is radiating throughout her chest, without alleviating or exacerbating features, pressure- like in nature. Upon arrival, the patient had a BP of 245/117, pulse 86, and SpO2 98% on room air. Laboratory evaluation revealed sodium 131, potassium 5.5, creatinine 11.11, glucose 641, anion gap 18, troponin I of 0.145. Chest x-ray revealed cardiomegaly with right-sided pleural effusion with interstitial edema. EKG revealed sinus rhythm @ [address]-T wave changes noted as reviewed by me. Review of systems: Pertinent positives and negatives as discussed in HPI, a complete review of systems was performed and all other systems are negative. Physical examination: General: non toxic, no distress, appears older than stated age, normal weight Derm: no unusual rashes/lesions no unusual ecchymoses, warm, dry Head: atraumatic, normocephalic, symmetric Eyes: EOMI, no lid lag, anicteric sclera, pupils equal round reactive to light ENT: Nose and ears atraumatic, no thrush, no pharyngeal erythema Neck: No thyromegaly, no cervical lymphadenopathy, trachea midline, supple Mouth: no lip lesion, mucus membranes moist Cardiovascular: S1S2 reg, no murmur, positive posterior tibial pulse bilateral, no edema, capillary refill less than 2 seconds Lungs: Diffuse bilateral rales without rhonchi or wheezing, no accessory muscle use Abdominal: soft, nontender to palpation, no guarding, no appreciable organomegaly, normal bowel sounds Ext: no gross muscle atrophy, muscle strength 5 out of 5 in all 4 extremities grossly, no contractures, Neuro: CN II-XI grossly intact, light touch intact all 4 extremities, finger to nose within normal limits, Psych: Alert, oriented, appropriate affect Assessment/plan Hypertensive emergency, in setting of ESRD and missed dialysis -Nitroglycerin initiated. Patient will likely need Nicardipine infusion -Patient to be admitted to medical ICU, with case discussed with moose hunter by the ED physician -Nephrology consulted for emergent dialysis DKA -Insulin infusion -Monitor electrolytes -Hold off on IV fluids in setting of ESRD Non-ST elevation IA -C/w Heparin infusion -Cardiac monitoring -Cardiology consulted -C/w ASA, Statin DVT prophylaxis -Heparin infusion The patient is admitted with an anticipated greater than 2 midnight stay for evaluation of HTN emergency CODE STATUS: Full Code Discussed with: Patient Anticipated discharge date: 2-[address]: Home Past Medical History Past Medical History: CVA/TIA, Diabetes Mellitus, Dialysis, Eye Disorder, Hypertension, Renal Disease Additional Past Medical History / Comment(s): ESRD with hemodialysis M/W/F, IDDM type 1, DKA, neuropathy bilateral legs/feet, diabetic retinopathy/legally blind, RLS, gastritis, severe hypokalemia, fluid retention in abdomin/legs. History of Any Multi-Drug Resistant Organisms: None Reported Past Surgical History: Appendectomy, Section, Cholecystectomy Additional Past Surgical History / Comment(s): fistula left arm Past Anesthesia/Blood Transfusion Reactions: No Reported Reaction Past Psychological History: Anxiety, Depression Additional Psychological History / Comment(s): Pt resides with her father and pt's 3 children. Pt gets to dialysis by grandparents/family or cab. Smoking Status: Never smoker Past Alcohol Use History: None Reported Past Drug Use History: None Reported - Past Family History Mother Family Medical History: Cancer, Hypertension Additional Family Medical History / Comment(s): Thyroid cancer, bipolar Father Family Medical History: Seizure Disorder Additional Family Medical History / Comment(s): Epilepsy Medications and Allergies Home Medications Medication Instructions Recorded Confirmed Type Aspirin EC [Ecotrin Low Dose] 81 mg PO DAILY 04/03/21 08/15/21 History Carvedilol [Coreg] 25 mg PO BID 04/03/21 08/15/21 History Ergocalciferol (Vitamin D2) 1,250 mcg PO COPELAND 04/03/21 08/15/21 History [Drisdol (50,000 Iu)] Isosorbide Mononitrate ER [Imdur] 30 mg PO HS 04/03/21 08/15/21 History Acetaminophen Tab [Tylenol] 650 mg PO Q6HR PRN #30 tab 04/09/21 08/15/21 Rx Escitalopram [Lexapro] 20 mg PO DAILY 04/17/21 08/15/21 History rOPINIRole HCL [Requip] 0.5 mg PO HS 04/17/21 08/15/21 History Sevelamer [Renvela] 800 mg PO TID-W/MEALS 30 Days #90 05/31/21 08/15/21 Rx tab Pantoprazole Sodium [Protonix] 40 mg PO BID 30 Days #60 tab 06/04/21 08/15/21 Rx Glucagon Emergency Kit 1 mg IM ONCE PRN #1 kit 06/15/21 08/15/21 Rx Melatonin 5 - 10 mg PO HS PRN 06/29/21 08/15/21 History cloNIDine HCL [Catapres] 0.3 mg PO TID tab 08/07/21 08/15/21 Rx Albuterol Inhaler [Ventolin Hfa 1 puff INHALATION RT-QID PRN 30 09/06/21 Rx Inhaler] Days #8 gm Cyanocobalamin [Vitamin B-12] 1,000 mcg PO DAILY #60 tab 09/06/21 Rx Darbepoetin Tate [Aranesp] 60 mcg SQ Q7D each 09/06/21 Rx Doxycycline [Vibramycin] 100 mg PO BID 7 Days #14 capsule 09/06/21 Rx HYDROcodone/APAP 5-325MG [[place] 1 each PO Q6HR PRN #12 tab 09/06/21 Rx 5-325] INSULIN ASPART (NovoLOG) [NovoLOG 0 unit SQ ACHS ml 09/06/21 Rx (formulary)] Insulin Detemir (Levemir) [Levemir] 13 unit SQ HS #10 ml 09/06/21 08/15/21 Rx Megestrol [Megace] 400 mg PO DAILY #30 ml 09/06/21 Rx Moxifloxacin HCl [Avelox] 400 mg PO DAILY 7 Days #7 tablet 09/06/21 Rx NIFEdipine XL [Procardia XL] 90 mg PO DAILY #30 tablet 04/11/22 Rx lisinopriL [Zestril] 20 mg PO DAILY #30 tab 09/06/21 Rx Allergies Allergy/AdvReac Type Severity Reaction Status Date / Time Fish Containing Products Allergy Rash/Hives Verified 09/20/21 21:44 [Fish] iodine Allergy Anaphylaxis Verified 09/20/21 21:44 Physical Exam Vitals: Vital Signs Temp Pulse Resp BP Pulse Ox 09/21/21 03:00 98 20 235/133 98 09/21/21 02:50 98 23 235/133 98 09/21/21 02:40 104 H 19 235/133 97 09/21/21 02:30 101 H 20 229/132 94 L 09/21/21 02:20 124 H 09/21/21 02:18 144 H 09/21/21 02:00 100 22 225/120 99 09/21/21 01:00 104 H 26 H 225/112 90 L 09/20/21 22:58 98 18 249/123 95 09/20/21 21:44 98.2 F 86 18 245/117 98 Intake and Output 09/20/21 09/20/21 09/21/21 14:59 22:59 06:59 Intake Total 20 Balance 20 Intake: IV 20 .9 @ 20mL/hr 20 Other: Weight 45.359 kg 45.359 kg Results CBC & Chem 7: 09/20/21 22:42 09/21/21 03:24 Labs: Abnormal Lab Results - Last 24 Hours (Table) 09/20/21 09/20/21 09/20/21 Range/Units 22:42 22:42 22:42 RBC 3.38 L (3.80-5.40) m/uL Hgb 10.1 L (11.4-16.0) gm/dL Hct 30.7 L (34.0-46.0) % RDW 17.0 H (11.5-15.5) % Lymphocytes # 0.8 L (1.0-4.8) k/uL VBG pH (7.31-7.41) VBG HCO3 (24-28) mmol/L Sodium 131 L (137-145) mmol/L Potassium 5.5 H (3.5-5.1) mmol/L Chloride 94 L (98-107) mmol/L Carbon Dioxide 19 L (22-30) mmol/L BUN 75 H (7-17) mg/dL Creatinine 11.11 H* (0.52-1.04) mg/dL Glucose 641 H* (74-99) mg/dL POC Glucose (mg/dL) (75-99) mg/dL Calcium 7.4 L (8.4-10.2) mg/dL AST 39 H (14-36) U/L ALT 44 H (4-34) U/L Alkaline Phosphatase 219 H (38-126) U/L Troponin I 0.145 H* (0.000-0.034) ng/mL 09/21/21 09/21/21 09/21/21 Range/Units 01:11 01:45 02:18 RBC (3.80-5.40) m/uL Hgb (11.4-16.0) gm/dL Hct (34.0-46.0) % RDW (11.5-15.5) % Lymphocytes # (1.0-4.8) k/uL VBG pH 7.26 L (7.31-7.41) VBG HCO3 17 L (24-28) mmol/L Sodium (137-145) mmol/L Potassium (3.5-5.1) mmol/L Chloride (98-107) mmol/L Carbon Dioxide (22-30) mmol/L BUN (7-17) mg/dL Creatinine (0.52-1.04) mg/dL Glucose (74-99) mg/dL POC Glucose (mg/dL) >600 H 599 H (75-99) mg/dL Calcium (8.4-10.2) mg/dL AST (14-36) U/L ALT (4-34) U/L Alkaline Phosphatase (38-126) U/L Troponin I (0.000-0.034) ng/mL 09/21/21 Range/Units 02:59 RBC (3.80-5.40) m/uL Hgb (11.4-16.0) gm/dL Hct (34.0-46.0) % RDW (11.5-15.5) % Lymphocytes # (1.0-4.8) k/uL VBG pH (7.31-7.41) VBG HCO3 (24-28) mmol/L Sodium (137-145) mmol/L Potassium (3.5-5.1) mmol/L Chloride (98-107) mmol/L Carbon Dioxide (22-30) mmol/L BUN (7-17) mg/dL Creatinine (0.52-1.04) mg/dL Glucose (74-99) mg/dL POC Glucose (mg/dL) 524 H (75-99) mg/dL Calcium (8.4-10.2) mg/dL AST (14-36) U/L ALT (4-34) U/L Alkaline Phosphatase (38-126) U/L Troponin I (0.000-0.034) ng/mL Thrombosis Risk Factor Assmnt - Choose All That Apply Any of the Below Risk Factors Present?: No Other Risk Factors: No Other congenital or acquired thrombophilia - If yes, enter type in comment: No Thrombosis Risk Factor Assessment Level: Very Low Risk
[2021-09-21 04:02] LABS: Glucose,Whole Blood 274 mg/dL (75-99)
[2021-09-21] MEDS ORDERED: MORPHINE SULFATE 2 MG/ML SYRINGE IVP STA (04:13)
[2021-09-21 04:15] LABS: Potassium 4.5 mmol/L (3.5-5.1)
[2021-09-21] MEDS: D5-0.45% NACL WITH KCL 20MEQ/L 1,000 ML IV SCH ×2 (04:40→08:35)
[2021-09-21 04:44] LABS: Glucose,Whole Blood 235 mg/dL (75-99)
[2021-09-21 05:12] LABS: Glucose,Whole Blood 133 mg/dL (75-99)
[2021-09-21 06:02] LABS: Glucose,Whole Blood 142 mg/dL (75-99)
[2021-09-21 06:51] LABS: Glucose,Whole Blood 115 mg/dL (75-99)
[2021-09-21 08:21] LABS: Glucose,Whole Blood 119 mg/dL (75-99)
[2021-09-21] MEDS ORDERED: ONDANSETRON 4 MG/2 ML VIAL IVP PRN (08:36)
[2021-09-21] MEDS: MORPHINE SULFATE 2 MG/ML SYRINGE IVP PRN ×3 (08:46→18:12)
[2021-09-21] MEDS ORDERED: DARBEPOETIN ALFA 60 MCG/0.3 ML SYRINGE SQ SCH (09:00)
--- NOTE | 2021-09-21 09:14 | P.CNPUL ---
History of Present Illness Consult date: 09/21/21 Requesting physician: Clifford Astorga Reason for consult: dyspnea, chest pain Chief complaint: Shortness of breath History of present illness: This is a 30-year-old white female patient with past medical history of end- stage renal disease on hemodialysis on Monday schedule, diabetes mellitus type I with peripheral neuropathy in bilateral legs and diabetic retinopathy and cataracts, hypertension, previous history of CVA and TIA, chronic anemia end-stage renal disease on Aranesp, and history of COVID-19 diagnosis in May 2021, who was recently hospitalized with the diagnosis of bilateral interstitial multifocal pneumonia, pleuritic chest pain and parapneumonic effusion, and pericardial effusion. Patient was discharged home on 7 day course of Avelox and doxycycline 100 mg twice a day for 1 week per infectious disease recommendations. Her blood cultures from previous admission included blood cultures that showed no growth. Patient follows with Dr. Poe from nephrology and she states that most of her medications are managed by Dr. Poe. On 09/20/2021 at 2200 patient was brought into the emergency department with complaints of chest pain, shortness of breath, nausea and vomiting. Patient apparently had missed her last hemodialysis session on Monday, her last hemodialysis was on Monday. She also missed her Lantus 13 units at bedtime on Monday. Patient states she was at the [facility] with her 2-year-old son who had been hospitalized with acute respiratory distress, and improved and was discharged home yesterday. EKG showed sinus rhythm with a rate of 93 bpm, no acute ST elevations or depressions and no evidence of acute ischemia or infarction. Chest x-ray showed cardiomegaly with right pleural effusion and some pulmonary interstitial edema that could be related to congestive heart failure and this was new compared her previous chest x-ray from 08/31/2021. The cardiomegaly was unchanged. Her recent echocardiogram from August 26 2021 showed severe concentric LVH, normal left ventricular systolic function with an EF of 55-60%, trace mitral regurg, moderate to severe tricuspid regurgitation, and severe pulmonary hypertension with right ventricular systolic pressure of 71.2 mmHg. There was a moderate generalized pericardial effusion present. Admission blood work showed significantly elevated blood pressure of 245/117, sinus rhythm with a rate of 92, room air pulse ox of 98%, and normal temperature of 98.2. Blood work showed white blood cell count is 7.9, hemoglobin of 10.1, platelet count of 188, INR 0.9, sodium of 131, potassium of 5.5, chloride is 94, CO2 is 19, BUN of 75 creatinine of 11.1, glucose was 641, calcium was 7.4, AST was 39, ALT was 44, alk phos was 219. Serum acetone was negative. Venous blood gas showed pH of 7.26, pCO2 of 39, and bicarbonate concentration of 17. Patient was started on nitroglycerin infusion for hypertensive emergency, heparin infusion for an elevation of 0.14, and IV fluids at 150 ML per hour. She was admitted to the intensive care unit for close monitoring, cardiology co nsultation is pending, nephrology consultation is pending. This morning she seen in the ICU, blood pressure is improved, down to 154/107 with a mean of 122, she is in sinus mechanism, she still having chest pain across her precordium, and some shortness of breath. She remains on insulin infusion at 0.57 units per hour, IV fluids which we stopped, and nitroglycerin is currently at 50 mics per kilo per minute. Heparin infusion per weight-based protocol. Review of Systems All systems: negative Constitutional: Denies chills, Denies fever Eyes: denies blurred vision, denies pain Ears, nose, mouth and throat: Denies headache, Denies sore throat Cardiovascular: Reports chest pain, Denies shortness of breath Respiratory: Reports dyspnea, Denies cough Gastrointestinal: Reports nausea, Reports vomiting, Denies abdominal pain, Denies diarrhea Genitourinary: Denies dysuria, Denies hematuria Musculoskeletal: Denies myalgias Integumentary: Denies pruritus, Denies rash Neurological: Denies numbness, Denies weakness Psychiatric: Denies anxiety, Denies depression Endocrine: Denies fatigue, Denies weight change Past Medical History Past Medical History: CVA/TIA, Diabetes Mellitus, Dialysis, Eye Disorder, Hypertension, Renal Disease Additional Past Medical History / Comment(s): ESRD with hemodialysis M/W/F, IDDM type 1, DKA, neuropathy bilateral legs/feet, diabetic retinopathy/legally blind, RLS, gastritis, severe hypokalemia, fluid retention in abdomin/legs. History of Any Multi-Drug Resistant Organisms: None Reported Past Surgical History: Appendectomy, Section, Cholecystectomy Additional Past Surgical History / Comment(s): fistula left arm Past Anesthesia/Blood Transfusion Reactions: No Reported Reaction Past Psychological History: Anxiety, Depression Smoking Status: Never smoker Past Alcohol Use History: None Reported Past Drug Use History: None Reported - Past Family History Mother Family Medical History: Cancer, Hypertension Additional Family Medical History / Comment(s): Thyroid cancer, bipolar Father Family Medical History: Seizure Disorder Additional Family Medical History / Comment(s): Epilepsy Medications and Allergies Home Medications Medication Instructions Recorded Confirmed Type Aspirin EC [Ecotrin Low Dose] 81 mg PO DAILY 04/03/21 09/21/21 History Carvedilol [Coreg] 25 mg PO BID 04/03/21 09/21/21 History Ergocalciferol (Vitamin D2) 1,250 mcg PO COPELAND 04/03/21 09/21/21 History [Drisdol (50,000 Iu)] Isosorbide Mononitrate ER [Imdur] 30 mg PO HS 04/03/21 09/21/21 History Acetaminophen Tab [Tylenol] 650 mg PO Q6HR PRN #30 tab 04/09/21 09/21/21 Rx Escitalopram [Lexapro] 20 mg PO DAILY 04/17/21 09/21/21 History rOPINIRole HCL [Requip] 0.5 mg PO HS 04/17/21 09/21/21 History Sevelamer [Renvela] 800 mg PO TID-W/MEALS 30 Days #90 05/31/21 09/21/21 Rx tab Pantoprazole Sodium [Protonix] 40 mg PO BID 30 Days #60 tab 06/04/21 09/21/21 Rx Glucagon Emergency Kit 1 mg IM ONCE PRN #1 kit 06/15/21 09/21/21 Rx Melatonin 5 - 10 mg PO HS PRN 06/29/21 09/21/21 History cloNIDine HCL [Catapres] 0.3 mg PO TID tab 08/07/21 09/21/21 Rx Albuterol Inhaler [Ventolin Hfa 1 puff INHALATION RT-QID PRN 30 09/06/21 09/21/21 Rx Inhaler] Days #8 gm Cyanocobalamin [Vitamin B-12] 1,000 mcg PO DAILY #60 tab 09/06/21 09/21/21 Rx Darbepoetin Tate [Aranesp] 60 mcg SQ Q7D each 09/06/21 09/21/21 Rx NIFEdipine XL [Procardia XL] 90 mg PO DAILY #30 tablet 09/06/21 09/21/21 Rx lisinopriL [Zestril] 20 mg PO DAILY #30 tab 09/06/21 09/21/21 Rx HYDROcodone/APAP 5-325MG [[place] 1 tab PO Q6H PRN 09/21/21 09/21/21 History 5-325] Insulin Glargine,Hum.rec.anlog 13 units SQ HS 09/21/21 09/21/21 History [Lantus Solostar Pen] Insulin Lispro [humaLOG Kwikpen] See Protocol SQ ACHS 09/21/21 09/21/21 History Allergies Allergy/AdvReac Type Severity Reaction Status Date / Time Fish Containing Products Allergy Rash/Hives Verified 09/21/21 06:54 [Fish] iodine Allergy Anaphylaxis Verified 09/21/21 06:54 Physical Exam Vitals: Vital Signs Temp Pulse Pulse Resp BP BP Pulse Ox 09/21/21 07:00 86 26 H 237/135 100 09/21/21 06:30 87 26 H 232/132 99 09/21/21 06:00 86 19 162/106 100 09/21/21 05:39 99 F 88 20 162/106 99 09/21/21 05:30 92 17 152/107 98 09/21/21 05:15 92 21 154/107 100 09/21/21 05:00 90 12 152/107 100 09/21/21 04:45 88 14 189/131 100 09/21/21 04:30 87 16 180/120 99 09/21/21 04:15 87 22 171/130 100 09/21/21 04:00 98.4 F 87 15 214/132 97 09/21/21 03:45 91 23 216/131 92 L 09/21/21 03:30 90 25 H 221/129 93 L 09/21/21 03:15 95 23 230/136 95 09/21/21 03:00 98 20 235/133 98 09/21/21 02:50 98 23 235/133 98 09/21/21 02:40 104 H 19 235/133 97 09/21/21 02:30 101 H 20 229/132 94 L 09/21/21 02:20 124 H 09/21/21 02:18 144 H 09/21/21 02:00 100 22 225/120 99 09/21/21 01:00 104 H 26 H 225/112 90 L 09/20/21 22:58 98 18 249/123 95 09/20/21 21:44 98.2 F 86 18 245/117 98 Intake and Output 09/20/21 09/21/21 09/21/21 22:59 06:59 14:59 Intake Total 530.638 9.225 Output Total 0 Balance 530.638 9.225 Intake: IV 100 .9 @ 20mL/hr 100 Intake, IV Titration 30.638 9.225 Amount Insulin Regular 100 unit 20.913 In Sodium Chloride 0.9% 100 ml @ 0.1 UNITS/KG/HR 4.581 mls/hr IV .Q22H3M [facility] Rx#:[id number] Nitroglycerin-D5w Pmx 50 9.725 9.225 mg In Dextrose/Water 1 250ml.bag @ 5 MCG/MIN 1.5 mls/hr IV .Q24H ONE Rx#: [id number] Hemodialysis 400 Output: Urine 0 Other: Voiding Method Bedside Commode # Voids 0 Weight 45.359 kg 52.9 kg GENERAL EXAM: Chronically ill looking, 30-year-old white female, on room air, with pulse ox of 100%, resting in bed in the ICU, complaining of nausea, and some shortness of breath and chest discomfort HEAD: Normocephalic/atraumatic. EYES: Normal reaction of pupils, equal size. Conjunctiva pink, sclera white. NOSE: Clear with pink turbinates. THROAT: No erythema or exudates. NECK: No masses, no JVD, no thyroid enlargement, no adenopathy. CHEST: No chest wall deformity. Symmetrical expansion. LUNGS: Equal air entry with no crackles, wheeze, rhonchi or dullness. CVS: Regular rate and rhythm, normal S1 and S2, no gallops, no murmurs, no rubs ABDOMEN: Soft, nontender. No hepatosplenomegaly, normal bowel sounds, no guarding or rigidity. EXTREMITIES: No clubbing, no edema, no cyanosis, 2+ pulses and upper and lower extremities. Left arm AV fistula in place MUSCULOSKELETAL: Muscle strength and tone normal. SPINE: No scoliosis or deformity SKIN: No rashes CENTRAL NERVOUS SYSTEM: Alert and oriented -3. No focal deficits, tone is normal in all 4 extremities. PSYCHIATRIC: Alert and oriented -3. Appropriate affect. Intact judgment and insight. Results - Laboratory Findings CBC and BMP: 09/20/21 22:42 09/21/21 11:47 PT/INR, D-dimer PT 9.9 sec (9.0-12.0) 09/20/21 22:42 INR 0.9 (<1.2) 09/20/21 22:42 Abnormal lab findings: Abnormal Labs 09/20/21 09/20/21 09/20/21 22:42 22:42 22:42 RBC 3.38 L Hgb 10.1 L Hct 30.7 L RDW 17.0 H Lymphocytes # 0.8 L VBG pH VBG HCO3 Sodium 131 L Potassium 5.5 H Chloride 94 L Carbon Dioxide 19 L BUN 75 H Creatinine 11.11 H* Glucose 641 H* POC Glucose (mg/dL) Calcium 7.4 L Phosphorus AST 39 H ALT 44 H Alkaline Phosphatase 219 H Troponin I 0.145 H* 09/21/21 09/21/21 09/21/21 01:11 01:45 02:18 RBC Hgb Hct RDW Lymphocytes # VBG pH 7.26 L VBG HCO3 17 L Sodium Potassium Chloride Carbon Dioxide BUN Creatinine Glucose POC Glucose (mg/dL) >600 H 599 H Calcium Phosphorus AST ALT Alkaline Phosphatase Troponin I 09/21/21 09/21/21 09/21/21 02:59 03:24 03:24 RBC Hgb Hct RDW Lymphocytes # VBG pH VBG HCO3 Sodium 134 L Potassium Chloride Carbon Dioxide 20 L BUN 71 H Creatinine 10.32 H* Glucose 400 H POC Glucose (mg/dL) 524 H Calcium Phosphorus 8.5 H AST ALT Alkaline Phosphatase Troponin I 09/21/21 09/21/21 09/21/21 04:00 04:42 05:11 RBC Hgb Hct RDW Lymphocytes # VBG pH VBG HCO3 Sodium Potassium Chloride Carbon Dioxide BUN Creatinine Glucose POC Glucose (mg/dL) 274 H 235 H 133 H Calcium Phosphorus AST ALT Alkaline Phosphatase Troponin I 09/21/21 09/21/21 09/21/21 06:00 06:49 08:19 RBC Hgb Hct RDW Lymphocytes # VBG pH VBG HCO3 Sodium Potassium Chloride Carbon Dioxide BUN Creatinine Glucose POC Glucose (mg/dL) 142 H 115 H 119 H Calcium Phosphorus AST ALT Alkaline Phosphatase Troponin I - Diagnostic Findings Chest x-ray: report reviewed, image reviewed Assessment and Plan Plan: Assessment: #1. Hypertensive emergency, likely related to missed hemodialysis #2. End-stage renal disease on hemodialysis on Monday #3. Pulmonary edema related to hypertensive emergency #4. Chest pain, possibly related to hypertensive emergency #5. Elevated troponins, cardiology consultation is pending, patient remains on heparin infusion #6. Hyperglycemia without evidence of DKA, related to missed doses of insulin #7. Diabetes mellitus type 1, with diabetic retinopathy, cataracts, peripheral neuropathy in bilateral legs and feet and gastroparesis #8. Nonsmoker #9. Severe pulmonary hypertension, with PA pressure of 71 mmHg, severe tricuspid regurgitation and preserved EF for most recent echocardiogram 08/26/2021 #10. Recent hospitalization for bilateral multifocal pneumonia, discharged home on 09/06/2021, cultures were negative, patient was discharged home on Avelox and doxycycline I I recognize that voice #11. History of COVID-19 infection in May 2021 #12. History of CVA/TIA Plan: We'll stop the IV fluids Continue insulin infusion until patient tolerates oral intake We will restart Lantus at bedtime if the patient is able to tolerate oral intake and transition the patient to sliding scale insulin Restart home medications including Coreg, clonidine, Procardia, Imdur, lisinopril Wean nitroglycerin infusion Cardiology nephrology consultation Continue close monitoring in the intensive care unit Morphine for discomfort, and Zofran for nausea We'll continue to follow I have personally seen and examined the patient, performed the documentation and the assessment and plan as written. Number of minutes spent on the visit: [15] This is a joint evaluation that was done along with a nurse practitioner. This evaluation was done and more than 30 minutes. The patient presented to us with chest pain and shortness of breath. The patient was also having acute hyperglycemia without DKA. She was in volume overload and the patient was also in hypertensive emergency. This morning, the patient on a nitroglycerin drip and the patient's blood pressure continues to be elevated. The patient was able to tolerate a brief hemodialysis with a total of 2 L of ultrafiltration yesterday. The patient would have another session of hemodialysis today. Meanwhile, I'm going to restart the oral antihypertensive medication and gradually wean off the nitroglycerin drip on this patient. I'm hoping that with another session of hemodialysis /ultrafiltration, the patient's blood pressure with improved. Meanwhile, we're going to discontinue the insulin drip and put the patient slight scale insulin coverage. He was Zofran for nausea. The patient be kept in intensive care unit for now to the blood pressure is under better control. Chest x-ray is consistent with pulmonary edema/cardiomegaly and the patient may have an underlying pericardial effusion that was noted to be moderate in size based on a previous echocardiogram. We'll continue to follow. Time with Patient: Greater than 30
--- NOTE | 2021-09-21 09:34 | P.NPCON ---
History of Present Illness - Reason for Consult end stage renal disease - History of Present Illness Reason for consultation: End-stage renal disease History of present illness: Patient is a 30-year-old female seen in consultation for end-stage renal disease. She is maintained on hemodialysis on Monday schedule. Patient missed yesterday's hemodialysis treatment because she states that her son was admitted at [facility] and she wanted to be by him. Patient became progressively short of breath and also developed nausea and vomiting. Subsequently she came to the ER. Patient's blood pressure was over 200 systolic and she was started on nitroglycerin as well as heparin drip. Patient's blood sugars were also elevated near 700 and she received IV fluids and insulin drip. Fluids and insulin drip have been discontinued as of this morning. She remains on nitro and heparin drip. She did undergo emergent hemodialysis last night due to respiratory distress and tolerated over 2 L ultrafiltration. Patient cut the treatment short due to cramping. She is refusing to undergo further hemodialysis today. Home anti-hypertensives have been resumed. Denies any nausea at this time. No fever or chills. No cough. Vital signs are stable. Blood pressure high. General: Awake. No acute distress. HEENT: Head exam is unremarkable. LUNGS: Breath sounds decreased. HEART: Rate and Rhythm are regular. ABDOMEN: Soft, no distention. EXTREMITITES: No edema. Past Medical History Past Medical History: CVA/TIA, Diabetes Mellitus, Dialysis, Eye Disorder, Hypertension, Renal Disease Additional Past Medical History / Comment(s): ESRD with hemodialysis M/W/F, IDDM type 1, DKA, neuropathy bilateral legs/feet, diabetic retinopathy/legally blind, RLS, gastritis, severe hypokalemia, fluid retention in abdomin/legs. History of Any Multi-Drug Resistant Organisms: None Reported Past Surgical History: Appendectomy, Section, Cholecystectomy Additional Past Surgical History / Comment(s): fistula left arm Past Anesthesia/Blood Transfusion Reactions: No Reported Reaction Past Psychological History: Anxiety, Depression Smoking Status: Never smoker Past Alcohol Use History: None Reported Past Drug Use History: None Reported - Past Family History Mother Family Medical History: Cancer, Hypertension Additional Family Medical History / Comment(s): Thyroid cancer, bipolar Father Family Medical History: Seizure Disorder Additional Family Medical History / Comment(s): Epilepsy Medications and Allergies Home Medications Medication Instructions Recorded Confirmed Type Aspirin EC [Ecotrin Low Dose] 81 mg PO DAILY 04/03/21 09/21/21 History Carvedilol [Coreg] 25 mg PO BID 04/03/21 09/21/21 History Ergocalciferol (Vitamin D2) 1,250 mcg PO COPEALND 04/03/21 09/21/21 History [Drisdol (50,000 Iu)] Isosorbide Mononitrate ER [Imdur] 30 mg PO HS 04/03/21 09/21/21 History Acetaminophen Tab [Tylenol] 650 mg PO Q6HR PRN #30 tab 04/09/21 09/21/21 Rx Escitalopram [Lexapro] 20 mg PO DAILY 04/17/21 09/21/21 History rOPINIRole HCL [Requip] 0.5 mg PO HS 04/17/21 09/21/21 History Sevelamer [Renvela] 800 mg PO TID-W/MEALS 30 Days #90 05/31/21 09/21/21 Rx tab Pantoprazole Sodium [Protonix] 40 mg PO BID 30 Days #60 tab 06/04/21 09/21/21 Rx Glucagon Emergency Kit 1 mg IM ONCE PRN #1 kit 06/15/21 09/21/21 Rx Melatonin 5 - 10 mg PO HS PRN 06/29/21 09/21/21 History cloNIDine HCL [Catapres] 0.3 mg PO TID tab 08/07/21 09/21/21 Rx Albuterol Inhaler [Ventolin Hfa 1 puff INHALATION RT-QID PRN 30 09/06/21 09/21/21 Rx Inhaler] Days #8 gm Cyanocobalamin [Vitamin B-12] 1,000 mcg PO DAILY #60 tab 09/06/21 09/21/21 Rx Darbepoetin Tate [Aranesp] 60 mcg SQ Q7D each 09/06/21 09/21/21 Rx NIFEdipine XL [Procardia XL] 90 mg PO DAILY #30 tablet 09/06/21 09/21/21 Rx lisinopriL [Zestril] 20 mg PO DAILY #30 tab 09/06/21 09/21/21 Rx HYDROcodone/APAP 5-325MG [[place] 1 tab PO Q6H PRN 09/21/21 09/21/21 History 5-325] Insulin Glargine,Hum.rec.anlog 13 units SQ HS 09/21/21 09/21/21 History [Lantus Solostar Pen] Insulin Lispro [humaLOG Kwikpen] See Protocol SQ ACHS 09/21/21 09/21/21 History Allergies Allergy/AdvReac Type Severity Reaction Status Date / Time Fish Containing Products Allergy Rash/Hives Verified 09/21/21 06:54 [Fish] iodine Allergy Anaphylaxis Verified 09/21/21 06:54 Physical Exam Vitals: Vital Signs Temp Pulse Pulse Resp BP BP Pulse Ox 09/21/21 07:00 86 26 H 237/135 100 09/21/21 06:30 87 26 H 232/132 99 09/21/21 06:00 86 19 162/106 100 09/21/21 05:39 99 F 88 20 162/106 99 09/21/21 05:30 92 17 152/107 98 09/21/21 05:15 92 21 154/107 100 09/21/21 05:00 90 12 152/107 100 09/21/21 04:45 88 14 189/131 100 09/21/21 04:30 87 16 180/120 99 09/21/21 04:15 87 22 171/130 100 09/21/21 04:00 98.4 F 87 15 214/132 97 09/21/21 03:45 91 23 216/131 92 L 09/21/21 03:30 90 25 H 221/129 93 L 09/21/21 03:15 95 23 230/136 95 09/21/21 03:00 98 20 235/133 98 09/21/21 02:50 98 23 235/133 98 09/21/21 02:40 104 H 19 235/133 97 09/21/21 02:30 101 H 20 229/132 94 L 09/21/21 02:20 124 H 09/21/21 02:18 144 H 09/21/21 02:00 100 22 225/120 99 09/21/21 01:00 104 H 26 H 225/112 90 L 09/20/21 22:58 98 18 249/123 95 09/20/21 21:44 98.2 F 86 18 245/117 98 Intake and Output 09/20/21 09/21/21 09/21/21 22:59 06:59 14:59 Intake Total 530.638 9.225 Output Total 0 Balance 530.638 9.225 Intake: IV 100 .9 @ 20mL/hr 100 Intake, IV Titration 30.638 9.225 Amount Insulin Regular 100 unit 20.913 In Sodium Chloride 0.9% 100 ml @ 0.1 UNITS/KG/HR 4.581 mls/hr IV .Q22H3M [facility] Rx#:[id number] Nitroglycerin-D5w Pmx 50 9.725 9.225 mg In Dextrose/Water 1 250ml.bag @ 5 MCG/MIN 1.5 mls/hr IV .Q24H ONE Rx#: [id number] Hemodialysis 400 Output: Urine 0 Other: Voiding Method Bedside Commode # Voids 0 Weight 45.359 kg 52.9 kg Results - Lab Results Most recent lab results Calcium 7.4 mg/dL (8.4-10.2) L 09/20/21 22:42 Phosphorus 8.5 mg/dL (2.5-4.5) H 09/21/21 03:24 Magnesium 2.0 mg/dL (1.6-2.3) 09/20/21 22:42 09/20/21 22:42 09/21/21 03:24 Assessment and Plan Plan: Assessment: 1. End-stage renal disease maintained on hemodialysis on Monday schedule. 2. Hypertensive emergency. 3. Volume overload. 4. DKA status post fluids and insulin drip. 5. Non-ST elevated myocardial infarction. On heparin drip. Cardiology following. 6. Acute on chronic diastolic CHF and moderate to severe tricuspid regurgitation and severe pulmonary hypertension. 7. Pericardial effusion. 8. 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 Plan: Patient completed hemodialysis early this morning. Refusing to undergo addit ional hemodialysis today. Plan for treatment tomorrow. Home antihypertensives resumed. Hold Catapres and lisinopril if systolic blood pressure less than 120. Patient's blood pressure and blood sugars are very labile. Avoid minoxidil and hydralazine due to pericardial effusion. Strongly advised patient to be compliant with medications and hemodialysis treatments outpatient. Life-threatening risks of missing dialysis have been discussed with the patient multiple times. Thank you for the consultation. I will continue to follow the patient with you during her hospital stay.
[2021-09-21 09:37] LABS: Phosphorus 6.3 mg/dL (2.5-4.5)
[2021-09-21] MEDS: CYANOCOBALAMIN 500 MCG TAB PO SCH (09:39)
[2021-09-21] MEDS: cloNIDine HCL 0.1 MG TAB PO SCH ×3 (09:39→23:09)
[2021-09-21] MEDS: lisinopriL 20 MG TAB PO SCH (09:39)
[2021-09-21] MEDS: ESCITALOPRAM 20 MG TAB PO SCH (09:40)
[2021-09-21] MEDS: carvediloL 12.5 MG TAB PO SCH ×2 (09:40→21:38)
[2021-09-21] MEDS: NIFEdipine XL 90 MG TAB.ER.24 PO SCH (09:40)
[2021-09-21] MEDS: ASPIRIN 81 MG PO SCH (09:40)
[2021-09-21 10:07] LABS: Potassium 4.9 mmol/L (3.5-5.1)
[2021-09-21 10:09] LABS: Glucose,Whole Blood 142 mg/dL (75-99)
[2021-09-21] MEDS: HYDROcodone/APAP 5-325MG 1 EACH TAB PO PRN ×3 (10:53→20:55)
[2021-09-21 12:23] LABS: Phosphorus 7.2 mg/dL (2.5-4.5); Potassium 5.2 mmol/L (3.5-5.1)
--- NOTE | 2021-09-21 12:35 | P.CRDCN ---
History of Present Illness Consult date: 09/21/21 History of present illness: HISTORY OF PRESENT ILLNESS: This is a 30-year-old female with a past medical history significant for end- stage renal disease on hemodialysis, diabetes, and hypertension. 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 We have been asked to see the patient in consultation for uncontrolled hypertension. Patient examined at the bedside. Patient presented to the hospital with a chief complaint of shortness of breath. Patient states her son was in the hospital yesterday and she was unable to find anyone to stay with him so she could attend her dialysis session and ultimately missed her hemodialysis. She states she developed shortness of breath last night along with chest discomfort. Patient denied any radiation of the pain. She reports the pain is worse with deep inspiration. Patient's blood pressure was found to be significantly elevated with a systolic greater than 200. She was started on IV nitro. Patient's home medications were resumed this morning. * EKG reveals sinus mechanism with no signs of acute ischemia * Chest xray cardiomegaly with right pleural effusion and some pulmonary interstitial edema. This could be congestive heart failure. This appears new compared to old exam. Cardiomegaly unchanged. * Laboratory data: WBC 7.9. Hemoglobin 10.1. Platelet count 188. Sodium 132. Potassium 5.2. BUN 44. Creatinine 7.62. Troponin 0.145. 0.338. * Current home cardiac medications include lisinopril 20 mg daily, Catapres 0.3 mg 3 times a day, Procardia 90 mg daily, Imdur 30 mg daily, carvedilol 25 mg twice a day, and aspirin 81 mg daily * Most recent echocardiogram obtained in [] reveals []. * Cardiac catheterization history: [] REVIEW OF SYSTEMS: At the time of my exam: CONSTITUTIONAL: Denies fever or chills. HEENT: Denies blurred vision, vision changes, or eye pain. Denies hemoptysis CARDIOVASCULAR: Denies chest pain. Denies orthopnea. Denies PND. Denies palpitations RESPIRATORY: Denies shortness of breath. GASTROINTESTINAL: Denies abdominal pain. Denies nausea or vomiting. HEMATOLOGIC: Denies bleeding disorders. GENITOURINARY: Denies any blood in urine. SKIN: Denies pruitis. Denies rash. PHYSICAL EXAM: VITAL SIGNS: Reviewed. GENERAL: Well-developed in no acute distress. HEENT: Head is normocephalic. Pupils are equal, round. Sclerae anicteric. Mucous membranes of the mouth are moist. Neck supple. No JVD or thyromegaly LUNGS: Respirations even and unlabored. Lungs diminished to auscultation bilaterally. HEART: Regular rate and rhythm. S1 and S2 heard. ABDOMEN: Soft. Nondistended. Nontender. EXTREMITIES: Normal range of motion. No clubbing or cyanosis. Peripheral pulses intact. No lower extremity edema NEUROLOGIC: Awake and alert. Oriented x 3. ASSESSMENT: Shortness of breath Hypertensive emergency, suspect secondary to missed hemodialysis End stage renal disease on hemodialysis Monday Chest pain, secondary to hypertensive emergency, ACS ruled out Abnormal troponins, secondary to ESRD and uncontrolled hypertension Diabetes PLAN: Resume home cardiac medications Wean Nitro drip as BP tolerates Discontinue IV heparin Obtain 2D echo to assess cardiac structure and function Further recommendations pending patient course Nurse practitioner note has been reviewed by physician. Signing provider agrees with the documented findings, assessment, and plan of care. Past Medical History Past Medical History: CVA/TIA, Diabetes Mellitus, Dialysis, Eye Disorder, Hypertension, Renal Disease Additional Past Medical History / Comment(s): ESRD with hemodialysis M/W/F, IDDM type 1, DKA, neuropathy bilateral legs/feet, diabetic retinopathy/legally bl ind, RLS, gastritis, severe hypokalemia, fluid retention in abdomin/legs. History of Any Multi-Drug Resistant Organisms: None Reported Past Surgical History: Appendectomy, Section, Cholecystectomy Additional Past Surgical History / Comment(s): fistula left arm Past Anesthesia/Blood Transfusion Reactions: No Reported Reaction Past Psychological History: Anxiety, Depression Smoking Status: Never smoker Past Alcohol Use History: None Reported Past Drug Use History: None Reported - Past Family History Mother Family Medical History: Cancer, Hypertension Additional Family Medical History / Comment(s): Thyroid cancer, bipolar Father Family Medical History: Seizure Disorder Additional Family Medical History / Comment(s): Epilepsy Medications and Allergies Home Medications Medication Instructions Recorded Confirmed Type Aspirin EC [Ecotrin Low Dose] 81 mg PO DAILY 04/03/21 09/21/21 History Carvedilol [Coreg] 25 mg PO BID 04/03/21 09/21/21 History Ergocalciferol (Vitamin D2) 1,250 mcg PO COP[place]AND 04/03/21 09/21/21 History [Drisdol (50,000 Iu)] Isosorbide Mononitrate ER [Imdur] 30 mg PO HS 04/03/21 09/21/21 History Acetaminophen Tab [Tylenol] 650 mg PO Q6HR PRN #30 tab 04/09/21 09/21/21 Rx Escitalopram [Lexapro] 20 mg PO DAILY 04/17/21 09/21/21 History rOPINIRole HCL [Requip] 0.5 mg PO HS 04/17/21 09/21/21 History Sevelamer [Renvela] 800 mg PO TID-W/MEALS 30 Days #90 05/31/21 09/21/21 Rx tab Pantoprazole Sodium [Protonix] 40 mg PO BID 30 Days #60 tab 06/04/21 09/21/21 Rx Glucagon Emergency Kit 1 mg IM ONCE PRN #1 kit 06/15/21 09/21/21 Rx Melatonin 5 - 10 mg PO HS PRN 06/29/21 09/21/21 History cloNIDine HCL [Catapres] 0.3 mg PO TID tab 08/07/21 09/21/21 Rx Albuterol Inhaler [Ventolin Hfa 1 puff INHALATION RT-QID PRN 30 09/06/21 09/21/21 Rx Inhaler] Days #8 gm Cyanocobalamin [Vitamin B-12] 1,000 mcg PO DAILY #60 tab 09/06/21 09/21/21 Rx Darbepoetin Tate [Aranesp] 60 mcg SQ Q7D each 09/06/21 09/21/21 Rx NIFEdipine XL [Procardia XL] 90 mg PO DAILY #30 tablet 09/06/21 09/21/21 Rx lisinopriL [Zestril] 20 mg PO DAILY #30 tab 09/06/21 09/21/21 Rx HYDROcodone/APAP 5-325MG [[place] 1 tab PO Q6H PRN 09/21/21 09/21/21 History 5-325] Insulin Glargine,Hum.rec.anlog 13 units SQ HS 09/21/21 09/21/21 History [Lantus Solostar Pen] Insulin Lispro [humaLOG Kwikpen] See Protocol SQ ACHS 09/21/21 09/21/21 History Allergies Allergy/AdvReac Type Severity Reaction Status Date / Time Fish Containing Products Allergy Rash/Hives Verified 09/21/21 06:54 [Fish] iodine Allergy Anaphylaxis Verified 09/21/21 06:54 Physical Exam Vitals: Vital Signs Temp Pulse Pulse Resp BP BP Pulse Ox 09/21/21 10:30 87 10 L 232/132 99 09/21/21 10:00 89 12 227/131 99 09/21/21 09:30 87 19 207/120 99 09/21/21 09:00 86 18 228/127 100 09/21/21 08:30 95 15 235/136 100 09/21/21 08:00 98.0 F 87 19 232/125 99 09/21/21 07:30 88 16 88 L 09/21/21 07:00 86 26 H 237/135 100 09/21/21 06:30 87 26 H 232/132 99 09/21/21 06:00 86 19 162/106 100 09/21/21 05:39 99 F 88 20 162/106 99 09/21/21 05:30 92 17 152/107 98 09/21/21 05:15 92 21 154/107 100 09/21/21 05:00 90 12 152/107 100 09/21/21 04:45 88 14 189/131 100 09/21/21 04:30 87 16 180/120 99 09/21/21 04:15 87 22 171/130 100 09/21/21 04:00 98.4 F 87 15 214/132 97 09/21/21 03:45 91 23 216/131 92 L 09/21/21 03:30 90 25 H 221/129 93 L 09/21/21 03:15 95 23 230/136 95 09/21/21 03:00 98 20 235/133 98 09/21/21 02:50 98 23 235/133 98 09/21/21 02:40 104 H 19 235/133 97 09/21/21 02:30 101 H 20 229/132 94 L 09/21/21 02:20 124 H 09/21/21 02:18 144 H 09/21/21 02:00 100 22 225/120 99 09/21/21 01:00 104 H 26 H 225/112 90 L 09/20/21 22:58 98 18 249/123 95 09/20/21 21:44 98.2 F 86 18 245/117 98 Intake and Output 09/20/21 09/21/21 09/21/21 22:59 06:59 14:59 Intake Total 530.638 309.117 Output Total 0 Balance 530.638 309.117 Intake: IV 100 150 .9 @ 20mL/hr 100 D5-0.45% NaCl with KCl 150 20Meq/l 1,000 ml @ 20 mls /hr IV .Q24H [facility] Rx#: [id number] Intake, IV Titration 30.638 59.117 Amount Heparin Sod,Pork in 0.45% 48.534 NaCl 25,000 unit In 0.45 % NaCl 1 250ml.bag @ 12 UNITS/KG/HR 5.443 mls/hr IV .Q24H [facility] Rx#: [id number] Insulin Regular 100 unit 20.913 1.358 In Sodium Chloride 0.9% 100 ml @ 0.1 UNITS/KG/HR 4.581 mls/hr IV .Q22H3M [facility] Rx#:[id number] Nitroglycerin-D5w Pmx 50 9.725 9.225 mg In Dextrose/Water 1 250ml.bag @ 5 MCG/MIN 1.5 mls/hr IV .Q24H [facility] Rx#: [id number] Oral 100 Hemodialysis 400 Output: Urine 0 Other: Voiding Method Bedside Commode # Voids 0 0 Weight 45.359 kg 52.9 kg Results 09/20/21 22:42 09/21/21 08:53 Cardiac Enzymes 09/20/21 09/20/21 09/21/21 Range/Units 22:42 22:42 08:53 AST 39 H (14-36) U/L Troponin I 0.145 H* 0.338 H* (0.000-0.034) ng/mL Coagulation 09/20/21 09/21/21 Range/Units 22:42 08:45 PT 9.9 (9.0-12.0) sec APTT 22.2 24.8 (22.0-30.0) sec CBC 09/20/21 Range/Units 22:42 WBC 7.9 (3.8-10.6) k/uL RBC 3.38 L (3.80-5.40) m/uL Hgb 10.1 L (11.4-16.0) gm/dL Hct 30.7 L (34.0-46.0) % Plt Count 188 (150-450) k/uL Comprehensive Metabolic Panel 09/20/21 09/21/21 09/21/21 Range/Units 22:42 03:24 08:53 Sodium 131 L 134 L 135 L (137-145) mmol/L Potassium 5.5 H 4.5 4.9 (3.5-5.1) mmol/L Chloride 94 L 98 99 (98-107) mmol/L Carbon Dioxide 19 L 20 L 24 (22-30) mmol/L BUN 75 H 71 H 44 H (7-17) mg/dL Creatinine 11.11 H* 10.32 H* 7.52 H* (0.52-1.04) mg/dL Glucose 641 H* 400 H 118 H (74-99) mg/dL Calcium 7.4 L (8.4-10.2) mg/dL AST 39 H (14-36) U/L ALT 44 H (4-34) U/L Alkaline Phosphatase 219 H (38-126) U/L Total Protein 6.3 (6.3-8.2) g/dL Albumin 3.8 (3.5-5.0) g/dL Current Medications Generic Name Dose Route Start Last Admin Trade Name Freq PRN Reason Stop Dose Admin Hydrocodone Bitart/Acetaminophen 1 each 09/21/21 10:43 09/21/21 10:53 Hydrocodone/Apap 5-325mg 1 Each Tab PO 1 each Q4HR PRN Administration Pain Aspirin 81 mg 09/21/21 09:00 09/21/21 09:40 Aspirin 81 Mg PO 81 mg DAILY [facility] Administration Carvedilol 25 mg 09/21/21 09:00 09/21/21 09:40 Carvedilol 12.5 Mg Tab PO 25 mg BID [facility] Administration Clonidine 0.3 mg 09/21/21 09:00 09/21/21 09:39 Clonidine Hcl 0.1 Mg Tab PO 0.3 mg TID [facility] Administration Cyanocobalamin 1,000 mcg 09/21/21 09:00 09/21/21 09:39 Cyanocobalamin 500 Mcg Tab PO 1,000 mcg DAILY [facility] Administration Darbepoetin Tate 60 mcg 09/21/21 09:00 09/21/21 09:40 Darbepoetin Tate 60 Mcg/0.3 Ml Syringe SQ 60 mcg Q7D [facility] Administration Ergocalciferol 1,250 mcg 09/26/21 09:00 Ergocalciferol 1,250 Mcg (50,000 Iu) Capsule PO COPELAND [facility] Escitalopram Oxalate 20 mg 09/21/21 09:00 09/21/21 09:40 Escitalopram 20 Mg Tab PO 20 mg DAILY [facility] Administration Heparin Sodium (Porcine) 0 unit 09/21/21 00:59 Heparin Sodium 1,000 Un/Ml (10ml Vl) IV PER PROTOCOL PRN Low PTT Protocol Heparin Sodium (Porcine) 5,000 unit 09/21/21 16:00 Heparin Sodium,Porcine/Pf 5,000 Unit/0.5 Ml Syringe SQ Q8HR [facility] Nitroglycerin/Dextrose 50 mg/ 250 mls @ 1.5 mls/hr 09/21/21 00:25 09/21/21 08:10 IV Solution IV 09/22/21 00:24 40 mcg/min .Q24H [facility] 12 mls/hr Titration Protocol 5 MCG/MIN Insulin Human Regular 100 unit 101 mls @ 4.581 mls/hr 09/21/21 00:30 09/21/21 09:15 / Sodium Chloride IV 0 units/kg/hr .Q22H3M [facility] 0 mls/hr Titration Protocol 0.1 UNITS/KG/HR Insulin Detemir 13 unit 09/21/21 21:00 Insulin Detemir (Levemir) 100 Unit/Ml Syr SQ HS [facility] Isosorbide Mononitrate 30 mg 09/21/21 21:00 Isosorbide Mononitrate Er 30 Mg Tab.Er.24h PO HS [facility] Lisinopril 20 mg 09/21/21 09:00 09/21/21 09:39 Lisinopril 20 Mg Tab PO 20 mg DAILY [facility] Administration Morphine Sulfate 2 mg 09/21/21 08:35 09/21/21 08:46 Morphine Sulfate 2 Mg/Ml Syringe IVP 2 mg Q4HR PRN Administration Pain/Discomfort Naloxone HCl 0.2 mg 09/21/21 00:51 Naloxone 0.4 Mg/Ml 1 Ml Vial IV Q2M PRN Opioid Reversal Nifedipine 90 mg 09/21/21 09:00 09/21/21 09:40 Nifedipine Xl 90 Mg Tab.Er.24 PO 90 mg DAILY [facility] Administration Ondansetron HCl 4 mg 09/21/21 08:36 09/21/21 08:45 Ondansetron 4 Mg/2 Ml Vial IVP 4 mg Q6HR PRN Administration Nausea And Vomiting Sevelamer Carbonate 800 mg 09/21/21 12:30 Sevelamer 800 Mg Tab PO TID-W/MEALS [facility] Intake and Output 09/20/21 09/21/21 09/21/21 22:59 06:59 14:59 Intake Total 530.638 309.117 Output Total 0 Balance 530.638 309.117 Intake: IV 100 150 .9 @ 20mL/hr 100 D5-0.45% NaCl with KCl 150 20Meq/l 1,000 ml @ 20 mls /hr IV .Q24H [facility] Rx#: [id number] Intake, IV Titration 30.638 59.117 Amount Heparin Sod,Pork in 0.45% 48.534 NaCl 25,000 unit In 0.45 % NaCl 1 250ml.bag @ 12 UNITS/KG/HR 5.443 mls/hr IV .Q24H [facility] Rx#: [id number] Insulin Regular 100 unit 20.913 1.358 In Sodium Chloride 0.9% 100 ml @ 0.1 UNITS/KG/HR 4.581 mls/hr IV .Q22H3M [facility] Rx#:[id number] Nitroglycerin-D5w Pmx 50 9.725 9.225 mg In Dextrose/Water 1 250ml.bag @ 5 MCG/MIN 1.5 mls/hr IV .Q24H [facility] Rx#: [id number] Oral 100 Hemodialysis 400 Output: Urine 0 Other: Voiding Method Bedside Commode # Voids 0 0 Weight 45.359 kg 52.9 kg 09/20/21 22:42 09/21/21 08:53
[2021-09-21] MEDS: CLEVIDIPINE BUTYRATE 25 MG in EMPTY BAG 1 BAG IV SCH ×3 (13:54→18:57)
[2021-09-21] MEDS: SEVELAMER 800 MG TAB PO SCH ×2 (13:59→17:19)
[2021-09-21 14:04] LABS: Glucose,Whole Blood 377 mg/dL (75-99)
[2021-09-21] MEDS: INSULIN ASPART (NovoLOG) 100 UNIT/ML VIAL SQ SCH ×3 (14:17→21:38)
[2021-09-21] MEDS: HEPARIN SODIUM,PORCINE/PF 5,000 UNIT/0.5 ML SYRINGE SQ SCH ×2 (17:10→23:43)
[2021-09-21 17:17] LABS: Glucose,Whole Blood 147 mg/dL (75-99)
[2021-09-21] MEDS ORDERED: INSULIN ASPART (NovoLOG) 100 UNIT/ML VIAL SQ SCH (17:30)
[2021-09-21 17:33] LABS: Phosphorus 6.3 mg/dL (2.5-4.5)
[2021-09-21 20:18] LABS: Glucose,Whole Blood 38 mg/dL (75-99)
[2021-09-21 20:31] LABS: Glucose,Whole Blood 45 mg/dL (75-99)
[2021-09-21 21:05] LABS: Glucose,Whole Blood 77 mg/dL (75-99)
[2021-09-21] MEDS: ISOSORBIDE MONONITRATE ER 30 MG TAB.ER.24H PO SCH (21:38)
[2021-09-21 23:09] LABS: Glucose,Whole Blood 162 mg/dL (75-99)
[2021-09-21] MEDS: INSULIN DETEMIR (LEVEMIR) 100 UNIT/ML SYR SQ SCH (23:42)
[2021-09-22 01:51] LABS: Glucose,Whole Blood 242 mg/dL (75-99)
[2021-09-22] MEDS: HYDROcodone/APAP 5-325MG 1 EACH TAB PO PRN ×2 (01:54→05:47)
[2021-09-22] MEDS: MORPHINE SULFATE 2 MG/ML SYRINGE IVP PRN ×5 (04:03→23:04)
[2021-09-22 05:43] LABS: Glucose,Whole Blood 157 mg/dL (75-99)
[2021-09-22] MEDS: SEVELAMER 800 MG TAB PO SCH ×3 (05:47→16:58)
[2021-09-22] MEDS: INSULIN ASPART (NovoLOG) 100 UNIT/ML VIAL SQ SCH ×4 (05:48→21:11)
[2021-09-22 05:57] LABS: Anisocytosis Slight; Basophils # (A) 0.1 k/uL (0-0.2); Basophils % (A) 3 %; Eosinophils # (A) 0.1 k/uL (0-0.7); Eosinophils % (A) 4 %; HCT 28.5 % (34.0-46.0); HGB 9.3 gm/dL (11.4-16.0); Lymphocytes # (A) 0.7 k/uL (1.0-4.8); Lymphocytes % (A) 24 %; MCHC 32.6 g/dL (31.0-37.0); MCV 92.2 fL (80.0-100.0); Mean Platelet Volume 9.9; Monocytes # (A) 0.2 k/uL (0-1.0); Monocytes % (A) 8 %; Neutrophils # (A) 1.8 k/uL (1.3-7.7); Neutrophils % (A) 59 %; Platelet Count 182 k/uL (150-450); RBC 3.09 m/uL (3.80-5.40); RDW 17.6 % (11.5-15.5)
[2021-09-22 06:07] LABS: Albumin 2.9 g/dL (3.5-5.0); Calcium 8.1 mg/dL (8.4-10.2); Total Bilirubin 1.1 mg/dL (0.2-1.3); Total Protein 5.3 g/dL (6.3-8.2)
--- NOTE | 2021-09-22 07:28 | CA ---
Transthoracic Echo Report Name: Patsy Pizano Age: 30 Gender: F : 1990 Exam Date: 09/21/2021 14:23 Exam Location: [place] [facility] Ht (in): 64 Wt (lb): 116 Ordering Physician: Venus Butt Attending/Referring Phys: [id number], Daquan Offset Press Operator Apprentice Esmer Cardenas, RDREBECCA Procedure CPT: Indications: LV function, abnormal troponins, chest pain, HTN Cardiac Hx: DKA, THEODORE, NSTEMI, Technical Quality: Contrast 1: N/A Total Dose (mL): Contrast 2: Total Dose (mL): MEASUREMENTS (Male / Female) Normal Values FINDINGS Left Ventricle LIMITED ECHO FOR LV FUNCTION.left ventricular ejection fraction is estimated at 50-55%. Right Ventricle Right Atrium Left Atrium Mitral Valve Aortic Valve Tricuspid Valve Pulmonic Valve Pericardium MODERATE PERICARDIAL EFFUSION. Aorta CONCLUSIONS LV size and systolic function is normal. There is a moderate circumferential pericardial effusion Previewed by: Dr. Judah Downs MD (Electronically Signed) Final Date: 22 September 2021 07:27
--- NOTE | 2021-09-22 07:48 | XR ---
EXAMINATION TYPE: XR chest 1V portable DATE OF EXAM: 09/22/2021 COMPARISON: Chest x-ray 09/20/2021 HISTORY: Shortness of breath TECHNIQUE: Single frontal view of the chest is obtained. FINDINGS: There is improvement in airspace disease seen on previous exam. The heart remains enlarged . No evident pneumothorax or pleural effusion. IMPRESSION: Improvement in aeration. Cardiomegaly, patient with known pericardial effusion.
[2021-09-22] MEDS: ASPIRIN 81 MG PO SCH (08:08)
[2021-09-22] MEDS: HEPARIN SODIUM,PORCINE/PF 5,000 UNIT/0.5 ML SYRINGE SQ SCH ×3 (08:08→23:04)
[2021-09-22] MEDS: CYANOCOBALAMIN 500 MCG TAB PO SCH (08:08)
[2021-09-22] MEDS: ESCITALOPRAM 20 MG TAB PO SCH (08:09)
[2021-09-22] MEDS ORDERED: diphenhydrAMINE 50 MG/ML 1 ML VIAL IVP STA (09:40)
--- NOTE | 2021-09-22 09:41 | P.PN ---
Subjective Patient is seen in follow-up for end-stage renal disease. She is maintained on hemodialysis on Monday and Monday schedule. Denies chest pain or shortness of breath. Currently on 2 L nasal cannula. Blood pressure 133/93. No vomiting or diarrhea. Vital signs are stable. General: Resting in bed. No acute distress. HEENT: Head exam is unremarkable. LUNGS: Breath sounds decreased. HEART: Rate and Rhythm are regular. ABDOMEN: Soft, obese. EXTREMITITES: No edema. Objective - Vital Signs Vital signs: Vital Signs Temp 98 F 09/22/21 04:00 Pulse 73 09/22/21 07:00 Resp 12 09/22/21 07:00 BP 133/93 09/22/21 07:00 Pulse Ox 98 09/22/21 08:16 Intake & Output 09/21/21 09/22/21 09/22/21 18:59 06:59 18:59 Intake Total 927.110 9804.000 Output Total 0 0 Balance 810.629 1162.000 Weight 52.9 kg 54 kg Intake: IV 150 D5-0.45% NaCl with KCl 150 20Meq/l 1,000 ml @ 20 mls /hr IV .Q24H [facility] Rx#: [id number] Intake, IV Titration 188.442 4.000 Amount Clevidipine Butyrate 25 50.200 4.000 mg In Empty Bag 1 bag @ 1 MG/HR 2 mls/hr IV .Q24H [facility] Rx#:[id number] Heparin Sod,Pork in 0.45% 48.534 NaCl 25,000 unit In 0.45 % NaCl 1 250ml.bag @ 12 UNITS/KG/HR 5.443 mls/hr IV .Q24H [facility] Rx#: [id number] Insulin Regular 100 unit 1.358 In Sodium Chloride 0.9% 100 ml @ 0.1 UNITS/KG/HR 4.581 mls/hr IV .Q22H3M [facility] Rx#:[id number] Nitroglycerin-D5w Pmx 50 88.350 mg In Dextrose/Water 1 250ml.bag @ 5 MCG/MIN 1.5 mls/hr IV .Q24H [facility] Rx#: [id number] Oral 270 1220 Output: Urine 0 0 Other: Voiding Method Bedside Commode Bedside Commode # Voids 0 - Labs CBC & Chem 7: 04/27/22 05:33 09/22/21 05:33 Labs: Abnormal Lab Results - Last 24 Hours (Table) 09/21/21 09/21/21 09/21/21 Range/Units 08:46 08:53 08:53 WBC (3.8-10.6) k/uL RBC (3.80-5.40) m/uL Hgb (11.4-16.0) gm/dL Hct (34.0-46.0) % RDW (11.5-15.5) % Lymphocytes # (1.0-4.8) k/uL Sodium 135 L (137-145) mmol/L Potassium (3.5-5.1) mmol/L Chloride (98-107) mmol/L BUN 44 H (7-17) mg/dL Creatinine 7.52 H* (0.52-1.04) mg/dL Glucose 118 H (74-99) mg/dL POC Glucose (mg/dL) (75-99) mg/dL Hemoglobin A1c 8.6 H (0.0-6.0) % Calcium (8.4-10.2) mg/dL Phosphorus 6.3 H (2.5-4.5) mg/dL AST (14-36) U/L ALT (4-34) U/L Alkaline Phosphatase (38-126) U/L Troponin I 0.338 H* (0.000-0.034) ng/mL Total Protein (6.3-8.2) g/dL Albumin (3.5-5.0) g/dL 09/21/21 09/21/21 09/21/21 Range/Units 10:08 11:47 14:02 WBC (3.8-10.6) k/uL RBC (3.80-5.40) m/uL Hgb (11.4-16.0) gm/dL Hct (34.0-46.0) % RDW (11.5-15.5) % Lymphocytes # (1.0-4.8) k/uL Sodium 132 L (137-145) mmol/L Potassium 5.2 H (3.5-5.1) mmol/L Chloride 97 L (98-107) mmol/L BUN 44 H (7-17) mg/dL Creatinine 7.62 H* (0.52-1.04) mg/dL Glucose 240 H (74-99) mg/dL POC Glucose (mg/dL) 142 H 377 H (75-99) mg/dL Hemoglobin A1c (0.0-6.0) % Calcium (8.4-10.2) mg/dL Phosphorus 7.2 H (2.5-4.5) mg/dL AST (14-36) U/L ALT (4-34) U/L Alkaline Phosphatase (38-126) U/L Troponin I (0.000-0.034) ng/mL Total Protein (6.3-8.2) g/dL Albumin (3.5-5.0) g/dL 09/21/21 09/21/21 09/21/21 Range/Units 16:44 17:15 20:15 WBC (3.8-10.6) k/uL RBC (3.80-5.40) m/uL Hgb (11.4-16.0) gm/dL Hct (34.0-46.0) % RDW (11.5-15.5) % Lymphocytes # (1.0-4.8) k/uL Sodium 133 L (137-145) mmol/L Potassium (3.5-5.1) mmol/L Chloride (98-107) mmol/L BUN 46 H (7-17) mg/dL Creatinine 8.33 H* (0.52-1.04) mg/dL Glucose 194 H (74-99) mg/dL POC Glucose (mg/dL) 147 H 38 L (75-99) mg/dL Hemoglobin A1c (0.0-6.0) % Calcium (8.4-10.2) mg/dL Phosphorus 6.3 H (2.5-4.5) mg/dL AST (14-36) U/L ALT (4-34) U/L Alkaline Phosphatase (38-126) U/L Troponin I (0.000-0.034) ng/mL Total Protein (6.3-8.2) g/dL Albumin (3.5-5.0) g/dL 09/21/21 09/21/21 09/22/21 Range/Units 20:30 23:07 01:47 WBC (3.8-10.6) k/uL RBC (3.80-5.40) m/uL Hgb (11.4-16.0) gm/dL Hct (34.0-46.0) % RDW (11.5-15.5) % Lymphocytes # (1.0-4.8) k/uL Sodium (137-145) mmol/L Potassium (3.5-5.1) mmol/L Chloride (98-107) mmol/L BUN (7-17) mg/dL Creatinine (0.52-1.04) mg/dL Glucose (74-99) mg/dL POC Glucose (mg/dL) 45 L 162 H 242 H (75-99) mg/dL Hemoglobin A1c (0.0-6.0) % Calcium (8.4-10.2) mg/dL Phosphorus (2.5-4.5) mg/dL AST (14-36) U/L ALT (4-34) U/L Alkaline Phosphatase (38-126) U/L Troponin I (0.000-0.034) ng/mL Total Protein (6.3-8.2) g/dL Albumin (3.5-5.0) g/dL 09/22/21 09/22/21 09/22/21 Range/Units 05:33 05:33 05:40 WBC 3.0 L (3.8-10.6) k/uL RBC 3.09 L (3.80-5.40) m/uL Hgb 9.3 L (11.4-16.0) gm/dL Hct 28.5 L (34.0-46.0) % RDW 17.6 H (11.5-15.5) % Lymphocytes # 0.7 L (1.0-4.8) k/uL Sodium 132 L (137-145) mmol/L Potassium (3.5-5.1) mmol/L Chloride 97 L (98-107) mmol/L BUN 52 H (7-17) mg/dL Creatinine 8.89 H* (0.52-1.04) mg/dL Glucose 149 H (74-99) mg/dL POC Glucose (mg/dL) 157 H (75-99) mg/dL Hemoglobin A1c (0.0-6.0) % Calcium 8.1 L (8.4-10.2) mg/dL Phosphorus (2.5-4.5) mg/dL AST 561 H (14-36) U/L ALT 256 H (4-34) U/L Alkaline Phosphatase 272 H (38-126) U/L Troponin I (0.000-0.034) ng/mL Total Protein 5.3 L (6.3-8.2) g/dL Albumin 2.9 L (3.5-5.0) g/dL Assessment and Plan Plan: Assessment: 1. End-stage renal disease maintained on hemodialysis on Monday schedule. 2. Hypertensive emergency. Improved. 3. Volume overload. Improved postdialysis. 4. DKA status post fluids and insulin drip. 5. Non-ST elevated myocardial infarction. On heparin drip. Cardiology following. 6. Acute on chronic diastolic CHF and moderate to severe tricuspid regurgitation and severe pulmonary hypertension. 7. Pericardial effusion. 8. 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 Phosphorus 6.3 dated 09/21/2021. 9. Anemia of chronic kidney disease. On Aranesp. Plan: Hemodialysis today. Hold Catapres and lisinopril if systolic blood pressure less than 120. Patient's blood pressure and blood sugars are very labile. Avoid minoxidil and hydralazine due to pericardial effusion. Check iron studies. Strongly advised patient to be compliant with medications and hemodialysis treatments outpatient. Life-threatening risks of missing dialysis have been discussed with the patient multiple times.
[2021-09-22] MEDS: NIFEdipine XL 90 MG TAB.ER.24 PO SCH (09:47)
[2021-09-22] MEDS: cloNIDine HCL 0.1 MG TAB PO SCH ×3 (09:47→21:11)
--- NOTE | 2021-09-22 10:32 | P.PN ---
Subjective Progress Note Date: 09/22/21 Principal diagnosis: Shortness of breath Patient is a 30-year-old female with a PMH of type I DM, complicated by diabetic retinopathy and cataracts, ESRD on hemodialysis, hypertension, asthma, who presents to the emergency room with complaints of shortness of breath, nausea, and chest pain. The patient reports that she missed his regularly scheduled dialysis session earlier today since her 2-year-old child was sick in the hospital. She reports that as a result, she quickly developed shortness of breath along with severe nausea with too many episodes of vomiting, nonbloody nonbilious, to count. She also reports having developed substernal chest discomfort. Upon arrival, the patient had a BP of 245/117, pulse 86, and SpO2 98% on room air. Laboratory evaluation revealed sodium 131, potassium 5.5, creatinine 11.11, glucose 641, anion gap 18, troponin I of 0.145. Patient was admitted to the intensive care unit and started on treatment for hypertensive urgency. Patient was evaluated by both cardiology and nephrology team. 09/22/2021: Patient reports that she's feeling better today she denies any headache nausea or vomiting. She is currently in the process of receiving dialysis. No other acute complaints Objective - Vital Signs Vital signs: Vital Signs Temp 98 F 09/22/21 04:00 Pulse 73 09/22/21 07:00 Resp 12 09/22/21 07:00 BP 133/93 09/22/21 07:00 Pulse Ox 98 09/22/21 08:16 Intake & Output 09/21/21 09/22/21 09/22/21 18:59 06:59 18:59 Intake Total 285.817 1233.000 Output Total 0 0 Balance 442.476 4825.000 Weight 52.9 kg 54 kg Intake: IV 150 D5-0.45% NaCl with KCl 150 20Meq/l 1,000 ml @ 20 mls /hr IV .Q24H [facility] Rx#: [id number] Intake, IV Titration 188.442 4.000 Amount Clevidipine Butyrate 25 50.200 4.000 mg In Empty Bag 1 bag @ 1 MG/HR 2 mls/hr IV .Q24H [facility] Rx#:[id number] Heparin Sod,Pork in 0.45% 48.534 NaCl 25,000 unit In 0.45 % NaCl 1 250ml.bag @ 12 UNITS/KG/HR 5.443 mls/hr IV .Q24H [facility] Rx#: [id number] Insulin Regular 100 unit 1.358 In Sodium Chloride 0.9% 100 ml @ 0.1 UNITS/KG/HR 4.581 mls/hr IV .Q22H3M [facility] Rx#:[id number] Nitroglycerin-D5w Pmx 50 88.350 mg In Dextrose/Water 1 250ml.bag @ 5 MCG/MIN 1.5 mls/hr IV .Q24H [facility] Rx#: [id number] Oral 270 1220 Output: Urine 0 0 Other: Voiding Method Bedside Commode Bedside Commode # Voids 0 - Exam General: non toxic, no distress, appears older than stated age, normal weight Derm: no unusual rashes/lesions no unusual ecchymoses, warm, dry Head: atraumatic, normocephalic, symmetric Eyes: EOMI, no lid lag, anicteric sclera, pupils equal round reactive to light ENT: Nose and ears atraumatic, no thrush, no pharyngeal erythema Neck: No thyromegaly, no cervical lymphadenopathy, trachea midline, supple Mouth: no lip lesion, mucus membranes moist Cardiovascular: S1S2 reg, no murmur, positive posterior tibial pulse bilateral, no edema, capillary refill less than 2 seconds Lungs: Diffuse bilateral rales without rhonchi or wheezing, no accessory muscle use Abdominal: soft, nontender to palpation, no guarding, no appreciable organomegaly, normal bowel sounds Ext: no gross muscle atrophy, muscle strength 5 out of 5 in all 4 extremities grossly, no contractures, Neuro: CN II-XI grossly intact, light touch intact all 4 extremities, finger to nose within normal limits, Psych: Alert, oriented, appropriate affect - Labs CBC & Chem 7: 09/22/21 05:33 09/22/21 05:33 Labs: Abnormal Lab Results - Last 24 Hours (Table) 09/21/21 09/21/21 09/21/21 Range/Units 08:46 08:53 11:47 WBC (3.8-10.6) k/uL RBC (3.80-5.40) m/uL Hgb (11.4-16.0) gm/dL Hct (34.0-46.0) % RDW (11.5-15.5) % Lymphocytes # (1.0-4.8) k/uL Sodium 132 L (137-145) mmol/L Potassium 5.2 H (3.5-5.1) mmol/L Chloride 97 L (98-107) mmol/L BUN 44 H (7-17) mg/dL Creatinine 7.62 H* (0.52-1.04) mg/dL Glucose 240 H (74-99) mg/dL POC Glucose (mg/dL) (75-99) mg/dL Hemoglobin A1c 8.6 H (0.0-6.0) % Calcium (8.4-10.2) mg/dL Phosphorus 7.2 H (2.5-4.5) mg/dL AST (14-36) U/L ALT (4-34) U/L Alkaline Phosphatase (38-126) U/L Troponin I 0.338 H* (0.000-0.034) ng/mL Total Protein (6.3-8.2) g/dL Albumin (3.5-5.0) g/dL 09/21/21 09/21/21 09/21/21 Range/Units 14:02 16:44 17:15 WBC (3.8-10.6) k/uL RBC (3.80-5.40) m/uL Hgb (11.4-16.0) gm/dL Hct (34.0-46.0) % RDW (11.5-15.5) % Lymphocytes # (1.0-4.8) k/uL Sodium 133 L (137-145) mmol/L Potassium (3.5-5.1) mmol/L Chloride (98-107) mmol/L BUN 46 H (7-17) mg/dL Creatinine 8.33 H* (0.52-1.04) mg/dL Glucose 194 H (74-99) mg/dL POC Glucose (mg/dL) 377 H 147 H (75-99) mg/dL Hemoglobin A1c (0.0-6.0) % Calcium (8.4-10.2) mg/dL Phosphorus 6.3 H (2.5-4.5) mg/dL AST (14-36) U/L ALT (4-34) U/L Alkaline Phosphatase (38-126) U/L Troponin I (0.000-0.034) ng/mL Total Protein (6.3-8.2) g/dL Albumin (3.5-5.0) g/dL 09/21/21 09/21/21 09/21/21 Range/Units 20:15 20:30 23:07 WBC (3.8-10.6) k/uL RBC (3.80-5.40) m/uL Hgb (11.4-16.0) gm/dL Hct (34.0-46.0) % RDW (11.5-15.5) % Lymphocytes # (1.0-4.8) k/uL Sodium (137-145) mmol/L Potassium (3.5-5.1) mmol/L Chloride (98-107) mmol/L BUN (7-17) mg/dL Creatinine (0.52-1.04) mg/dL Glucose (74-99) mg/dL POC Glucose (mg/dL) 38 L 45 L 162 H (75-99) mg/dL Hemoglobin A1c (0.0-6.0) % Calcium (8.4-10.2) mg/dL Phosphorus (2.5-4.5) mg/dL AST (14-36) U/L ALT (4-34) U/L Alkaline Phosphatase (38-126) U/L Troponin I (0.000-0.034) ng/mL Total Protein (6.3-8.2) g/dL Albumin (3.5-5.0) g/dL 09/22/21 09/22/21 09/22/21 Range/Units 01:47 05:33 05:33 WBC 3.0 L (3.8-10.6) k/uL RBC 3.09 L (3.80-5.40) m/uL Hgb 9.3 L (11.4-16.0) gm/dL Hct 28.5 L (34.0-46.0) % RDW 17.6 H (11.5-15.5) % Lymphocytes # 0.7 L (1.0-4.8) k/uL Sodium 132 L (137-145) mmol/L Potassium (3.5-5.1) mmol/L Chloride 97 L (98-107) mmol/L BUN 52 H (7-17) mg/dL Creatinine 8.89 H* (0.52-1.04) mg/dL Glucose 149 H (74-99) mg/dL POC Glucose (mg/dL) 242 H (75-99) mg/dL Hemoglobin A1c (0.0-6.0) % Calcium 8.1 L (8.4-10.2) mg/dL Phosphorus (2.5-4.5) mg/dL AST 561 H (14-36) U/L ALT 256 H (4-34) U/L Alkaline Phosphatase 272 H (38-126) U/L Troponin I (0.000-0.034) ng/mL Total Protein 5.3 L (6.3-8.2) g/dL Albumin 2.9 L (3.5-5.0) g/dL 09/22/21 Range/Units 05:40 WBC (3.8-10.6) k/uL RBC (3.80-5.40) m/uL Hgb (11.4-16.0) gm/dL Hct (34.0-46.0) % RDW (11.5-15.5) % Lymphocytes # (1.0-4.8) k/uL Sodium (137-145) mmol/L Potassium (3.5-5.1) mmol/L Chloride (98-107) mmol/L BUN (7-17) mg/dL Creatinine (0.52-1.04) mg/dL Glucose (74-99) mg/dL POC Glucose (mg/dL) 157 H (75-99) mg/dL Hemoglobin A1c (0.0-6.0) % Calcium (8.4-10.2) mg/dL Phosphorus (2.5-4.5) mg/dL AST (14-36) U/L ALT (4-34) U/L Alkaline Phosphatase (38-126) U/L Troponin I (0.000-0.034) ng/mL Total Protein (6.3-8.2) g/dL Albumin (3.5-5.0) g/dL Assessment and Plan Plan: Hypertensive emergency, in setting of ESRD and missed dialysis -Patient's blood pressure has improved. Patient was initially initiated on nitroglycerin gtt. Patient also was on Cleviprex gtt. Which now has been discontinued -Continue with home medications, carvedilol, clonidine, lisinopril, Imdur, nifedipine -Patient currently remains in the intensive care unit. Nephrology, cardiology both on consult DKA -Now resolved. She was initiated as insulin gtt. on admission which has now been discontinued. Patient is doing well with blood sugars. And no elevation of anion gap. Continue with current insulin regimen Non-ST elevation CA Pericardial effusion -Elevated troponins likely in the setting of end-stage renal disease and uncontrolled hypertension. Patient is being followed by cardiology team. Echocardiogram was performed and does show moderate level of pericardial effusion. Acute hypoxic respiratory failure Volume overload -Patient's currently on 2 L nasal cannula to maintain oxygen saturation greater than 90%. Secondary to volume overload from missed dialysis with acute on chronic diastolic CHF -Patient's echocardiogram reviewed End-stage renal disease -Patient scheduled to have dialysis performed today. Anemia of chronic disease -Secondary to renal failure. Nephrology is following. They have ordered iron studies as well as continuing patient on Aranesp. DVT prophylaxis -Heparin The patient is admitted with an anticipated greater than 2 midnight stay for evaluation of HTN emergency CODE STATUS: Full Code Discussed with: Patient Anticipated discharge date: 2-[address]: Home
--- NOTE | 2021-09-22 11:45 | P.PN ---
Progress Note - Text 50-year-old lady with history of end-stage renal disease and hemodialysis severe uncontrolled hypertension is in the ICU secondary to hypertensive emergency and renal failure. She is being dialyzed. Blood pressure is well-controlled. She is free of cardiac symptoms. On exam comfortable at rest vital signs are stable chest exam reveals good air entry bilaterally heart exam was first and second heart sounds and S4 is heard abdomen is soft exam extremities reveals bilateral mild edema per for pulses are felt Assessment and plan: Severe hypertension End-stage renal disease on hemodialysis Patient will continue carvedilol 25 mg twice a day Catapres 0.3 3 times a day Zestril 20 mg daily Procardia XL 90 mg daily
[2021-09-22 12:18] LABS: Glucose,Whole Blood 89 mg/dL (75-99)
[2021-09-22] MEDS: lisinopriL 20 MG TAB PO SCH (13:33)
[2021-09-22] MEDS: carvediloL 12.5 MG TAB PO SCH ×2 (13:33→21:11)
--- NOTE | 2021-09-22 13:46 | P.PN ---
Subjective Progress Note Date: 09/22/21 This is a 30-year-old white female patient with past medical history of end-sta ge renal disease on hemodialysis on Monday schedule, diabetes mellitus type I with peripheral neuropathy in bilateral legs and diabetic retinopathy and cataracts, hypertension, previous history of CVA and TIA, chronic anemia end-stage renal disease on Aranesp, and history of COVID-19 diagnosis in May 2021, who was recently hospitalized with the diagnosis of bilateral interstitial multifocal pneumonia, pleuritic chest pain and parapneumonic effusion, and pericardial effusion. Patient was discharged home on 7 day course of Avelox and doxycycline 100 mg twice a day for 1 week per infectious disease recommendations. Her blood cultures from previous admission included blood cultures that showed no growth. Patient follows with Dr. Poe from nephrology and she states that most of her medications are managed by Dr. Poe. On 09/20/2021 at 2200 patient was brought into the emergency department with complaints of chest pain, shortness of breath, nausea and vomiting. [place] carrillo apparently had missed her last hemodialysis session on Monday, her last hemodialysis was on Monday. She also missed her Lantus 13 units at bedtime on Monday. Patient states she was at the [facility] with her 2-year-old son who had been hospitalized with acute respiratory distress, and improved and was discharged home yesterday. EKG showed sinus rhythm with a rate of 93 bpm, no acute ST elevations or depressions and no evidence of acute ischemia or infarction. Chest x-ray showed cardiomegaly with right pleural effusion and some pulmonary interstitial edema that could be related to congestive heart failure and this was new compared her previous chest x-ray from 08/31/2021. The cardiomegaly was unchanged. Her recent echocardiogram from August 26 2021 showed severe concentric LVH, normal left ventricular systolic function with an EF of 55-60%, trace mitral regurg, moderate to severe tricuspid regurgitation, and severe pulmonary hypertension with right ventricular systolic pressure of 71.2 mmHg. There was a moderate generalized pericardial effusion present. Admission blood work showed significantly elevated blood pressure of 245/117, sinus rhythm with a rate of 92, room air pulse ox of 98%, and normal temperature of 98.2. Blood work showed white blood cell count is 7.9, hemoglobin of 10.1, platelet count of 188, INR 0.9, sodium of 131, potassium of 5.5, chloride is 94, CO2 is 19, BUN of 75 creatinine of 11.1, glucose was 641, calcium was 7.4, AST was 39, ALT was 44, alk phos was 219. Serum acetone was negative. Venous blood gas showed pH of 7.26, pCO2 of 39, and bicarbonate concentration of 17. Patient was started on nitroglycerin infusion for hypertensive emergency, heparin infusion for an elevation of 0.14, and IV fluids at 150 ML per hour. She was admitted to the intensive care unit for close monitoring, cardiology consultation is pending, nephrology consultation is pending. This morning she seen in the ICU, blood pressure is improved, down to 154/107 with a mean of 122, she is in sinus mechanism, she still having chest pain across her precordium, and some shortness of breath. She remains on insulin infusion at 0.57 units per hour, IV fluids which we stopped, and nitroglycerin is currently at 50 mics per kilo per minute. Heparin infusion per weight-based protocol. 09/22/2021, seeing the patient for a follow-up. She is doing well. No nausea. She was able to have dinner and breakfast this morning. He is scheduled to have another session of hemodialysis today. Her blood pressure is under better control and the patient was taken off the nitroglycerin drip and oral antihypertensive medication has been resumed. She is free of any chest pain. No nausea. No vomiting. I without pain. No chest pain at this point in time. The patient also has developed some abnormalities in the liver function tested noted the patient has undergone previous cholecystectomy and the CAT scan of the abdomen and pelvis done on 09/02/2021 showed no significant intra-abdominal abnormalities. With concern of underlying moderate-sized pericardial effusion. The patient is afebrile. The patient is hemodynamically stable. No focal alan rological deficit and his condition is stable for now. Objective - Vital Signs Vital signs: Vital Signs Temp 98.2 F 09/22/21 08:00 Pulse 73 09/22/21 12:00 Resp 10 L 09/22/21 12:00 BP 120/74 09/22/21 12:00 Pulse Ox 100 09/22/21 12:00 Intake & Output 09/21/21 09/22/21 09/22/21 18:59 06:59 18:59 Intake Total 469.741 6529.000 120 Output Total 0 0 0 Balance 546.011 6081.000 120 Weight 52.9 kg 54 kg Intake: IV 150 D5-0.45% NaCl with KCl 150 20Meq/l 1,000 ml @ 20 mls /hr IV .Q24H [facility] Rx#: [id number] Intake, IV Titration 188.442 4.000 Amount Clevidipine Butyrate 25 50.200 4.000 mg In Empty Bag 1 bag @ 1 MG/HR 2 mls/hr IV .Q24H [facility] Rx#:[id number] Heparin Sod,Pork in 0.45% 48.534 NaCl 25,000 unit In 0.45 % NaCl 1 250ml.bag @ 12 UNITS/KG/HR 5.443 mls/hr IV .Q24H [facility] Rx#: [id number] Insulin Regular 100 unit 1.358 In Sodium Chloride 0.9% 100 ml @ 0.1 UNITS/KG/HR 4.581 mls/hr IV .Q22H3M [facility] Rx#:[id number] Nitroglycerin-D5w Pmx 50 88.350 mg In Dextrose/Water 1 250ml.bag @ 5 MCG/MIN 1.5 mls/hr IV .Q24H [facility] Rx#: [id number] Oral 270 1220 120 Output: Urine 0 0 0 Other: Voiding Method Bedside Commode Bedside Commode Bedside Commode # Voids 0 0 - Exam GENERAL EXAM: Chronically ill looking, 30-year-old white female, on room air, with pulse ox of 100%, the patient is comfortable in the patient's breathing is nonlabored at this point in time HEAD: Normocephalic/atraumatic. EYES: Normal reaction of pupils, equal size. Conjunctiva pink, sclera white. NOSE: Clear with pink turbinates. THROAT: No erythema or exudates. NECK: No masses, no JVD, no thyroid enlargement, no adenopathy. CHEST: No chest wall deformity. Symmetrical expansion. LUNGS: Equal air entry with no crackles, wheeze, rhonchi or dullness. CVS: Regular rate and rhythm, normal S1 and S2, no gallops, no murmurs, no rubs ABDOMEN: Soft, nontender. No hepatosplenomegaly, normal bowel sounds, no guarding or rigidity. EXTREMITIES: No clubbing, no edema, no cyanosis, 2+ pulses and upper and lower extremities. Left arm AV fistula in place MUSCULOSKELETAL: Muscle strength and tone normal. SPINE: No scoliosis or deformity SKIN: No rashes CENTRAL NERVOUS SYSTEM: Alert and oriented -3. No focal deficits, tone is normal in all 4 extremities. PSYCHIATRIC: Alert and oriented -3. Appropriate affect. Intact judgment and insight. - Labs CBC & Chem 7: 09/22/21 05:33 09/22/21 05:33 Labs: Abnormal Lab Results - Last 24 Hours (Table) 09/21/21 09/21/21 09/21/21 Range/Units 08:46 14:02 16:44 WBC (3.8-10.6) k/uL RBC (3.80-5.40) m/uL Hgb (11.4-16.0) gm/dL Hct (34.0-46.0) % RDW (11.5-15.5) % Lymphocytes # (1.0-4.8) k/uL Sodium 133 L (137-145) mmol/L Chloride (98-107) mmol/L BUN 46 H (7-17) mg/dL Creatinine 8.33 H* (0.52-1.04) mg/dL Glucose 194 H (74-99) mg/dL POC Glucose (mg/dL) 377 H (75-99) mg/dL Hemoglobin A1c 8.6 H (0.0-6.0) % Calcium (8.4-10.2) mg/dL Phosphorus 6.3 H (2.5-4.5) mg/dL AST (14-36) U/L ALT (4-34) U/L Alkaline Phosphatase (38-126) U/L Total Protein (6.3-8.2) g/dL Albumin (3.5-5.0) g/dL 09/21/21 09/21/21 09/21/21 Range/Units 17:15 20:15 20:30 WBC (3.8-10.6) k/uL RBC (3.80-5.40) m/uL Hgb (11.4-16.0) gm/dL Hct (34.0-46.0) % RDW (11.5-15.5) % Lymphocytes # (1.0-4.8) k/uL Sodium (137-145) mmol/L Chloride (98-107) mmol/L BUN (7-17) mg/dL Creatinine (0.52-1.04) mg/dL Glucose (74-99) mg/dL POC Glucose (mg/dL) 147 H 38 L 45 L (75-99) mg/dL Hemoglobin A1c (0.0-6.0) % Calcium (8.4-10.2) mg/dL Phosphorus (2.5-4.5) mg/dL AST (14-36) U/L ALT (4-34) U/L Alkaline Phosphatase (38-126) U/L Total Protein (6.3-8.2) g/dL Albumin (3.5-5.0) g/dL 09/21/21 09/22/21 09/22/21 Range/Units 23:07 01:47 05:33 WBC 3.0 L (3.8-10.6) k/uL RBC 3.09 L (3.80-5.40) m/uL Hgb 9.3 L (11.4-16.0) gm/dL Hct 28.5 L (34.0-46.0) % RDW 17.6 H (11.5-15.5) % Lymphocytes # 0.7 L (1.0-4.8) k/uL Sodium (137-145) mmol/L Chloride (98-107) mmol/L BUN (7-17) mg/dL Creatinine (0.52-1.04) mg/dL Glucose (74-99) mg/dL POC Glucose (mg/dL) 162 H 242 H (75-99) mg/dL Hemoglobin A1c (0.0-6.0) % Calcium (8.4-10.2) mg/dL Phosphorus (2.5-4.5) mg/dL AST (14-36) U/L ALT (4-34) U/L Alkaline Phosphatase (38-126) U/L Total Protein (6.3-8.2) g/dL Albumin (3.5-5.0) g/dL 09/22/21 09/22/21 Range/Units 05:33 05:40 WBC (3.8-10.6) k/uL RBC (3.80-5.40) m/uL Hgb (11.4-16.0) gm/dL Hct (34.0-46.0) % RDW (11.5-15.5) % Lymphocytes # (1.0-4.8) k/uL Sodium 132 L (137-145) mmol/L Chloride 97 L (98-107) mmol/L BUN 52 H (7-17) mg/dL Creatinine 8.89 H* (0.52-1.04) mg/dL Glucose 149 H (74-99) mg/dL POC Glucose (mg/dL) 157 H (75-99) mg/dL Hemoglobin A1c (0.0-6.0) % Calcium 8.1 L (8.4-10.2) mg/dL Phosphorus (2.5-4.5) mg/dL AST 561 H (14-36) U/L ALT 256 H (4-34) U/L Alkaline Phosphatase 272 H (38-126) U/L Total Protein 5.3 L (6.3-8.2) g/dL Albumin 2.9 L (3.5-5.0) g/dL Assessment and Plan Plan: Assessment: #1. Hypertensive emergency, likely related to missed hemodialysis, improved and the patient is currently off in a nitroglycerin drip and the patient is back on her oral antihypertensive medication #2. End-stage renal disease on hemodialysis on Monday, scheduled to undergo hemodialysis today #3. Pulmonary edema related to hypertensive emergency, improving #4. Chest pain, possibly related to hypertensive emergency #5. Elevated troponins, cardiology consultation is pending, patient was taken off the IV heparin infusion #6. Hyperglycemia , improved, and the patient is currently on Levemir insulin 13 units at bedtime along with a sliding scale coverage. #7. Diabetes mellitus type 1, with diabetic retinopathy, cataracts, peripheral neuropathy in bilateral legs and feet and gastroparesis #8. Nonsmoker #9. Severe pulmonary hypertension, with PA pressure of 71 mmHg, severe tricuspid regurgitation and preserved EF for most recent echocardiogram 08/26/2021 #10. Recent hospitalization for bilateral multifocal pneumonia, discharged home on 09/06/2021, cultures were negative, patient was discharged home on Avelox and doxycycline I I recognize that voice #11. History of COVID-19 infection in May 2021 #12. History of CVA/TIA #13 abnormal LFTs postcholecystectomy with a negative CAT scan of the abdomen and pelvis that was done on 09/02/2021 Plan: Continue Levemir insulin Continue oral antihypertensive medication which include Coreg, clonidine, Procardia, Imdur, lisinopril Hemodialysis today Cardiology nephrology consultation Chest x-ray continues to improve BP is under better control Monitor LFTs and repeat the labs for tomorrow We'll continue to follow and the patient can leave the ICU following her hemodialysis.
[2021-09-22 16:41] LABS: % Iron Saturation 57.87 (12.00-45.00)
[2021-09-22 16:51] LABS: Glucose,Whole Blood 296 mg/dL (75-99)
[2021-09-22 20:05] LABS: Glucose,Whole Blood 183 mg/dL (75-99)
[2021-09-22] MEDS ORDERED: MELATONIN 5 MG TABLET PO SCH (21:00)
[2021-09-22] MEDS: ISOSORBIDE MONONITRATE ER 30 MG TAB.ER.24H PO SCH (21:11)
[2021-09-22] MEDS: INSULIN DETEMIR (LEVEMIR) 100 UNIT/ML SYR SQ SCH (21:11)
[2021-09-23 01:39] LABS: Glucose,Whole Blood 78 mg/dL (75-99)
[2021-09-23] MEDS: MORPHINE SULFATE 2 MG/ML SYRINGE IVP PRN ×3 (04:36→16:46)
[2021-09-23 05:53] LABS: Anisocytosis Slight; Basophils # (A) 0.1 k/uL (0-0.2); Basophils % (A) 1 %; Eosinophils # (A) 0.3 k/uL (0-0.7); Eosinophils % (A) 7 %; HCT 28.2 % (34.0-46.0); Hypochromasia Slight; Lymphocytes # (A) 1.1 k/uL (1.0-4.8); Lymphocytes % (A) 25 %; MCH 30.2 pg (25.0-35.0); MCV 94.5 fL (80.0-100.0); Mean Platelet Volume 10.6; Monocytes # (A) 0.4 k/uL (0-1.0); Monocytes % (A) 8 %; Neutrophils # (A) 2.4 k/uL (1.3-7.7); Neutrophils % (A) 56 %; Platelet Count 175 k/uL (150-450); RBC 2.99 m/uL (3.80-5.40); RDW 18.1 % (11.5-15.5); WBC 4.3 k/uL (3.8-10.6)
[2021-09-23 06:10] LABS: Calcium 7.4 mg/dL (8.4-10.2)
[2021-09-23 07:03] LABS: Glucose,Whole Blood 48 mg/dL (75-99)
[2021-09-23 08:00] LABS: Glucose,Whole Blood 80 mg/dL (75-99)
[2021-09-23] MEDS: INSULIN ASPART (NovoLOG) 100 UNIT/ML VIAL SQ SCH ×3 (09:02→17:06)
[2021-09-23] MEDS: ASPIRIN 81 MG PO SCH (09:29)
[2021-09-23] MEDS: HEPARIN SODIUM,PORCINE/PF 5,000 UNIT/0.5 ML SYRINGE SQ SCH ×2 (09:30→17:06)
[2021-09-23] MEDS: SEVELAMER 800 MG TAB PO SCH ×3 (09:30→17:50)
[2021-09-23] MEDS: cloNIDine HCL 0.1 MG TAB PO SCH ×2 (09:33→17:06)
[2021-09-23] MEDS: CYANOCOBALAMIN 500 MCG TAB PO SCH (09:33)
[2021-09-23] MEDS: ESCITALOPRAM 20 MG TAB PO SCH (09:33)
--- NOTE | 2021-09-23 10:10 | P.PN ---
Subjective This is a 30-year-old female with a past medical history significant for end- stage renal disease on hemodialysis, type 1 diabetes, and hypertension. Patient does not follow with a patient financial advocate. We have been asked to see the patient in consultation for uncontrolled hypertension. Patient presented to the hospital with a chief complaint of shortness of breath. Patient's son was in the hospital on 09/20/21 and she was unable to find anyone to stay with him so she could attend her dialysis session and ultimately missed her hemodialysis. She states she developed shortness of breath 09/20 night along with chest discomfort. Patient's blood pressure was found to be significantly elevated with a systolic greater than 200. She was started on IV nitro. Patient's home medications were resumed. She was admitted to the ICU. Limited Echocardiogram reveals an EF of 5055%, moderate circumferential pericardial effusion 09/23/2021 Patient is seen this morning at bedside, she is lying comfortably in bed. No acute distress. She is doing well. No chest pain, shortness of breath, nausea or vomiting. She is hemodynamically stable. Her BP has improved. BP 125/68 HR 77. She underwent hemodialysis with 3.8 L removed. She is off IV nitro. She is currently maintained on aspirin 81 mg daily, carvedilol 25 mg BID, clonidine 0.3 mg TID, Imdur 30 mg nightly, lisinopril 20 mg daily, nifedipine 90 mg daily Labs: WBC 4.3, hemoglobin 9.0, platelets 175, sodium 142, potassium 5.0, BUN 24, serum creatinine 6.2 PHYSICAL EXAM: VITAL SIGNS: Reviewed. GENERAL: Well-developed in no acute distress. HEENT: Neck supple. No JVD LUNGS: Respirations even and unlabored. Lungs diminished to auscultation bilaterally. HEART: Regular rate and rhythm. S1 and S2 heard. ABDOMEN: Soft. Nondistended. Nontender. EXTREMITIES: Normal range of motion. No clubbing or cyanosis. Peripheral pulses intact. No lower extremity edema NEUROLOGIC: Awake and alert. Oriented x 3. ASSESSMENT: Hypertensive emergency, suspect secondary to missed hemodialysis, improved End stage renal disease on hemodialysis Monday Chest pain, secondary to hypertensive emergency, ACS ruled out Abnormal troponins, secondary to ESRD and uncontrolled hypertension Type 1 Diabetes Severe pulmonary hypertension PLAN: We recommend continuing current medical regimen with carvedilol, clonidine, lisinopril and nifedipine. Hemodialysis per nephrology From a cardiology perspective, patient is stable on current regimen. No further changes at this time or inpatient workup indicated. We will follow the patient as needed. Please reconsult if needed. Nurse practitioner note has been reviewed by physician. Signing provider agrees with the documented findings, assessment, and plan of care. Objective - Vital Signs Vital signs: Vital Signs Temp 97.9 F 09/23/21 08:00 Pulse 77 09/23/21 08:00 Resp 16 09/23/21 08:00 BP 125/68 09/23/21 08:00 Pulse Ox 100 09/23/21 08:00 Intake & Output 09/22/21 09/23/21 09/23/21 18:59 06:59 18:59 Intake Total 360 360 296 Output Total 7300 0 Balance -6940 360 296 Weight 53.7 kg Intake: Oral 360 360 296 Output: Urine 0 0 Hemodialysis 3800 Other 3500 Other: Voiding Method Bedside Commode Bedside Commode # Voids 0 - Labs CBC & Chem 7: 09/23/21 05:34 09/23/21 05:34 Labs: Abnormal Lab Results - Last 24 Hours (Table) 09/22/21 09/22/21 09/22/21 Range/Units 05:33 16:50 20:04 RBC (3.80-5.40) m/uL Hgb (11.4-16.0) gm/dL Hct (34.0-46.0) % RDW (11.5-15.5) % BUN (7-17) mg/dL Creatinine (0.52-1.04) mg/dL Glucose (74-99) mg/dL POC Glucose (mg/dL) 296 H 183 H (75-99) mg/dL Calcium (8.4-10.2) mg/dL TIBC 192 L (228-460) ug/dL % Saturation 57.87 H (12.00-45.00) Transferrin 137.0 L (204.0-354.0) mg/dL Ferritin 4712.0 H (10.0-291.0) ng/mL 09/23/21 09/23/21 09/23/21 Range/Units 05:34 05:34 07:02 RBC 2.99 L (3.80-5.40) m/uL Hgb 9.0 L (11.4-16.0) gm/dL Hct 28.2 L (34.0-46.0) % RDW 18.1 H (11.5-15.5) % BUN 24 H (7-17) mg/dL Creatinine 6.23 H (0.52-1.04) mg/dL Glucose 62 L (74-99) mg/dL POC Glucose (mg/dL) 48 L (75-99) mg/dL Calcium 7.4 L (8.4-10.2) mg/dL TIBC (228-460) ug/dL % Saturation (12.00-45.00) Transferrin (204.0-354.0) mg/dL Ferritin (10.0-291.0) ng/mL
[2021-09-23] MEDS ORDERED: diphenhydrAMINE 50 MG/ML 1 ML VIAL IVP STA (10:44)
--- NOTE | 2021-09-23 10:46 | P.PN ---
Subjective Patient is seen in follow-up for end-stage renal disease. She is maintained on hemodialysis on Monday and Monday schedule. Denies chest pain or shortness of breath. Currently on 4 L nasal cannula. Blood pressure stable. No vomiting or diarrhea. Vital signs are stable. General: Resting in bed. No acute distress. HEENT: Head exam is unremarkable. LUNGS: Breath sounds decreased. HEART: Rate and Rhythm are regular. ABDOMEN: Soft, obese. EXTREMITITES: No edema. Objective - Vital Signs Vital signs: Vital Signs Temp 97.9 F 09/23/21 08:00 Pulse 77 09/23/21 08:00 Resp 16 09/23/21 08:00 BP 125/68 09/23/21 08:00 Pulse Ox 100 09/23/21 08:00 Intake & Output 09/22/21 09/23/21 09/23/21 18:59 06:59 18:59 Intake Total 360 360 296 Output Total 7300 0 Balance -6940 360 296 Weight 53.7 kg Intake: Oral 360 360 296 Output: Urine 0 0 Hemodialysis 3800 Other 3500 Other: Voiding Method Bedside Commode Bedside Commode # Voids 0 - Labs CBC & Chem 7: 09/23/21 05:34 09/23/21 05:34 Labs: Abnormal Lab Results - Last 24 Hours (Table) 09/22/21 09/22/21 09/22/21 Range/Units 05:33 16:50 20:04 RBC (3.80-5.40) m/uL Hgb (11.4-16.0) gm/dL Hct (34.0-46.0) % RDW (11.5-15.5) % BUN (7-17) mg/dL Creatinine (0.52-1.04) mg/dL Glucose (74-99) mg/dL POC Glucose (mg/dL) 296 H 183 H (75-99) mg/dL Calcium (8.4-10.2) mg/dL TIBC 192 L (228-460) ug/dL % Saturation 57.87 H (12.00-45.00) Transferrin 137.0 L (204.0-354.0) mg/dL Ferritin 4712.0 H (10.0-291.0) ng/mL 09/23/21 09/23/21 09/23/21 Range/Units 05:34 05:34 07:02 RBC 2.99 L (3.80-5.40) m/uL Hgb 9.0 L (11.4-16.0) gm/dL Hct 28.2 L (34.0-46.0) % RDW 18.1 H (11.5-15.5) % BUN 24 H (7-17) mg/dL Creatinine 6.23 H (0.52-1.04) mg/dL Glucose 62 L (74-99) mg/dL POC Glucose (mg/dL) 48 L (75-99) mg/dL Calcium 7.4 L (8.4-10.2) mg/dL TIBC (228-460) ug/dL % Saturation (12.00-45.00) Transferrin (204.0-354.0) mg/dL Ferritin (10.0-291.0) ng/mL Assessment and Plan Plan: Assessment: 1. End-stage renal disease maintained on hemodialysis on Monday schedule. 2. Hypertensive emergency. Improved. 3. Volume overload. Improved postdialysis. 4. DKA status post fluids and insulin drip. 5. Non-ST elevated myocardial infarction. s/p heparin drip. Cardiology following. 6. Acute on chronic diastolic CHF and moderate to severe tricuspid regurgitation and severe pulmonary hypertension. 7. Pericardial effusion. 8. 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 Phosphorus 6.3 dated 09/21/2021. 9. Anemia of chronic kidney disease. On Aranesp. Iron replete. Plan: Patient requesting extra hemodialysis treatment today. We'll schedule. Another treatment tomorrow for her outpatient schedule. Hold Catapres and lisinopril if systolic blood pressure less than 120. Patient's blood pressure and blood sugars are very labile. Avoid minoxidil and hydralazine due to pericardial effusion. Strongly advised patient to be compliant with medications and hemodialysis treatments outpatient. Life-threatening risks of missing dialysis have been discussed with the patient multiple times.
[2021-09-23 11:34] LABS: Glucose,Whole Blood 132 mg/dL (75-99)
--- NOTE | 2021-09-23 13:27 | P.PN ---
Subjective Progress Note Date: 09/23/21 This is a 30-year-old white female patient with past medical history of end- stage renal disease on hemodialysis on Monday schedule, diabetes mellitus type I with peripheral neuropathy in bilateral legs and diabetic retinopathy and cataracts, hypertension, previous history of CVA and TIA, chronic anemia end-stage renal disease on Aranesp, and history of COVID-19 diagnosis in May 2021, who was recently hospitalized with the diagnosis of bilateral interstitial multifocal pneumonia, pleuritic chest pain and parapneumonic effusion, and pericardial effusion. Patient was discharged home on 7 day course of Avelox and doxycycline 100 mg twice a day for 1 week per infectious disease recommendations. Her blood cultures from previous admission included blood cultures that showed no growth. Patient follows with Dr. Poe from nephrology and she states that most of her medications are managed by Dr. Poe. On 09/20/2021 at 2200 patient was brought into the emergency department with complaints of chest pain, shortness of breath, nausea and vomiting. Patient apparently had missed her last hemodialysis session on Monday, her last hemodialysis was on Monday. She also missed her Lantus 13 units at bedtime on Monday. Patient states she was at the [facility] with her 2-year-old son who had been hospitalized with acute respiratory distress, and improved and was discharged home yesterday. EKG showed sinus rhythm with a rate of 93 bpm, no acute ST elevations or depressions and no evidence of acute ischemia or infarction. Chest x-ray showed cardiomegaly with right pleural effusion and some pulmonary interstitial edema that could be related to congestive heart fa ilure and this was new compared her previous chest x-ray from 08/31/2021. The cardiomegaly was unchanged. Her recent echocardiogram from August 26 2021 showed severe concentric LVH, normal left ventricular systolic function with an EF of 55-60%, trace mitral regurg, moderate to severe tricuspid regurgitation, and severe pulmonary hypertension with right ventricular systolic pressure of 71.2 mmHg. There was a moderate generalized pericardial effusion present. Admission blood work showed significantly elevated blood pressure of 245/117, sinus rhythm with a rate of 92, room air pulse ox of 98%, and normal temperature of 98.2. Blood work showed white blood cell count is 7.9, hemoglobin of 10.1, platelet count of 188, INR 0.9, sodium of 131, potassium of 5.5, chloride is 94, CO2 is 19, BUN of 75 creatinine of 11.1, glucose was 641, calcium was 7.4, AST was 39, ALT was 44, alk phos was 219. Serum acetone was negative. Venous blood gas showed pH of 7.26, pCO2 of 39, and bicarbonate concentration of 17. Patient was started on nitroglycerin infusion for hypertensive emergency, heparin infusion for an elevation of 0.14, and IV fluids at 150 ML per hour. She was admitted to the intensive care unit for close monitoring, cardiology consultation is pending, nephrology consultation is pending. This morning she seen in the ICU, blood pressure is improved, down to 154/107 with a mean of 122, she is in sinus mechanism, she still having chest pain across her precordium, and some shortness of breath. She remains on insulin infusion at 0.57 units per hour, IV fluids which we stopped, and nitroglycerin is currently at 50 mics per kilo per minute. Heparin infusion per weight-based protocol. 09/22/2021, seeing the patient for a follow-up. She is doing well. No nausea. She was able to have dinner and breakfast this morning. He is scheduled to have another session of hemodialysis today. Her blood pressure is under better control and the patient was taken off the nitroglycerin drip and oral antihypertensive medication has been resumed. She is free of any chest pain. No nausea. No vomiting. I without pain. No chest pain at this point in time. The patient also has developed some abnormalities in the liver function tested noted the patient has undergone previous cholecystectomy and the CAT scan of the abdomen and pelvis done on 09/02/2021 showed no significant intra-abdominal abnormalities. With concern of underlying moderate-sized pericardial effusion. The patient is afebrile. The patient is hemodynamically stable. No focal neurological deficit and his condition is stable for now. The patient is seen today the 2021 in follow-up on the regular medical floor. She is awake and alert in no acute distress. She is currently maintaining good O2 saturationsup to 100% on 4 L/m per nasal cannula. no chest pain or palpitations. No headaches. Appetite is good. White count 4.3. Hemoglobin 9.0. Platelets 175. Sodium 142. Potassium 5.0. BUN 24. Creatinine 6.23.currently in a -6.5 mL balance. She is continued on Imdur, Zestril, Procardia for blood pressure control. Current BP 125/68 with a mean arterial pressure of 87. Objective - Vital Signs Vital signs: Vital Signs Temp 97.9 F 09/23/21 08:00 Pulse 77 09/23/21 08:00 Resp 16 09/23/21 08:00 BP 125/68 09/23/21 08:00 Pulse Ox 100 09/23/21 08:00 Intake & Output 09/22/21 09/23/21 09/23/21 18:59 06:59 18:59 Intake Total 360 360 296 Output Total 7300 0 Balance -6940 360 296 Weight 53.7 kg Intake: Oral 360 360 296 Output: Urine 0 0 Hemodialysis 3800 Other 3500 Other: Voiding Method Bedside Commode Bedside Commode # Voids 0 - Exam GENERAL EXAM: Chronically ill looking, 30-year-old female patient, on 4 L nasal cannula, with pulse ox of 100%, the patient is comfortable in the patient's breathing is nonlabored at this point in time HEAD: Normocephalic/atraumatic. EYES: Normal reaction of pupils, equal size. Conjunctiva pink, sclera white. NOSE: Clear with pink turbinates. THROAT: No erythema or exudates. NECK: No masses, no JVD, no thyroid enlargement, no adenopathy. CHEST: No chest wall deformity. Symmetrical expansion. LUNGS: Equal air entry with no crackles, wheeze, rhonchi or dullness. CVS: Regular rate and rhythm, normal S1 and S2, no gallops, no murmurs, no rubs ABDOMEN: Soft, nontender. No hepatosplenomegaly, normal bowel sounds, no guarding or rigidity. EXTREMITIES: No clubbing, no edema, no cyanosis, 2+ pulses and upper and lower extremities. Left arm AV fistula in place MUSCULOSKELETAL: Muscle strength and tone normal. SPINE: No scoliosis or deformity SKIN: No rashes CENTRAL NERVOUS SYSTEM: No focal deficits, tone is normal in all 4 extremities. PSYCHIATRIC: Alert and oriented -3. Appropriate affect. Intact judgment and insight. - Labs CBC & Chem 7: 09/23/21 05:34 09/23/21 05:34 Labs: Abnormal Lab Results - Last 24 Hours (Table) 0409/22/21 09/22/21 Range/Units 05:33 16:50 20:04 RBC (3.80-5.40) m/uL Hgb (11.4-16.0) gm/dL Hct (34.0-46.0) % RDW (11.5-15.5) % BUN (7-17) mg/dL Creatinine (0.52-1.04) mg/dL Glucose (74-99) mg/dL POC Glucose (mg/dL) 296 H 183 H (75-99) mg/dL Calcium (8.4-10.2) mg/dL TIBC 192 L (228-460) ug/dL % Saturation 57.87 H (12.00-45.00) Transferrin 137.0 L (204.0-354.0) mg/dL Ferritin 4712.0 H (10.0-291.0) ng/mL 09/23/21 09/23/21 09/23/21 Range/Units 05:34 05:34 07:02 RBC 2.99 L (3.80-5.40) m/uL Hgb 9.0 L (11.4-16.0) gm/dL Hct 28.2 L (34.0-46.0) % RDW 18.1 H (11.5-15.5) % BUN 24 H (7-17) mg/dL Creatinine 6.23 H (0.52-1.04) mg/dL Glucose 62 L (74-99) mg/dL POC Glucose (mg/dL) 48 L (75-99) mg/dL Calcium 7.4 L (8.4-10.2) mg/dL TIBC (228-460) ug/dL % Saturation (12.00-45.00) Transferrin (204.0-354.0) mg/dL Ferritin (10.0-291.0) ng/mL 09/23/21 Range/Units 11:32 RBC (3.80-5.40) m/uL Hgb (11.4-16.0) gm/dL Hct (34.0-46.0) % RDW (11.5-15.5) % BUN (7-17) mg/dL Creatinine (0.52-1.04) mg/dL Glucose (74-99) mg/dL POC Glucose (mg/dL) 132 H (75-99) mg/dL Calcium (8.4-10.2) mg/dL TIBC (228-460) ug/dL % Saturation (12.00-45.00) Transferrin (204.0-354.0) mg/dL Ferritin (10.0-291.0) ng/mL Assessment and Plan Assessment: Hypertensive emergency, likely related to missed hemodialysis, improved and the patient is currently off in a nitroglycerin drip and the patient is back on her oral antihypertensive medication End-stage renal disease on hemodialysis on Monday, scheduled to undergo hemodialysis today Pulmonary edema related to hypertensive emergency, improving Chest pain, possibly related to hypertensive emergency Elevated troponins, cardiology consultation is pending, patient was taken off the IV heparin infusion Hyperglycemia , improved, and the patient is currently on Levemir insulin 13 units at bedtime along with a sliding scale coverage. Diabetes mellitus type 1, with diabetic retinopathy, cataracts, peripheral neuropathy in bilateral legs and feet and gastroparesis Nonsmoker Severe pulmonary hypertension, with PA pressure of 71 mmHg, severe tricuspid regurgitation and preserved EF for most recent echocardiogram 08/26/2021 Recent hospitalization for bilateral multifocal pneumonia, discharged home on 09/06/2021, cultures were negative, patient was discharged home on Avelox and doxycycline I I recognize that voice History of COVID-19 infection in May 2021 History of CVA/TIA Abnormal LFTs postcholecystectomy with a negative CAT scan of the abdomen and pelvis that was done on 09/02/2021 Plan: The patient was seen and evaluated Stable from the pulmonary and critical care standpoint Better blood pressure control Nephrology regarding hemodialysis We'll continue to follow I have personally seen and examined the patient, performed the documentation and the assessment and plan as written. Number of minutes spent on the visit: 10 I have personally seen and examined the patient, performed the documentation and the assessment and plan as written. Number of minutes spent on the visit:12 . The patient is stable. The blood pressures under better control. Patient is going to undergo hemodialysis today and possible discharge home. No need for critically care follow-up at this point in time and we wanted to sign off the case.
[2021-09-23] MEDS: carvediloL 12.5 MG TAB PO SCH (14:14)
[2021-09-23] MEDS: lisinopriL 20 MG TAB PO SCH (14:14)
[2021-09-23] MEDS: NIFEdipine XL 90 MG TAB.ER.24 PO SCH (14:14)
[2021-09-23 15:01] VITALS: BP 144/83; PULSE 79; RESP 16; TEMP 98
--- NOTE | 2021-09-23 15:32 | P.DS ---
Providers Date of admission: 09/21/21 00:51 Expected date of discharge: 09/23/21 Attending physician: Clifford Astorga MD Consults: 09/21/21 00:52 Consult Physician Stat Consulting Provider: Roly Dodge Consult Reason/Comments: HTN emergency Do you want consulting provider notified?: Already Contacted 09/21/21 00:53 Consult Physician Stat Consulting Provider: Adriana Ordonez Consult Reason/Comments: ICU Do you want consulting provider notified?: Already Contacted Consult Physician Stat Consulting Provider: Fox Chase Consult Reason/Comments: emergent dialysis Do you want consulting provider notified?: Already Contacted Primary care physician: Stated None Hospital Course: 30-year-old female with a PMH of type I DM, complicated by diabetic retinopathy and cataracts, ESRD on hemodialysis, hypertension, asthma, who presents to the emergency room with complaints of shortness of breath, nausea, and chest pain. The patient reports that she missed her regularly scheduled dialysis session earlier today since her 2-year-old child was sick in the hospital. She reports that as a result, she quickly developed shortness of breath along with severe nausea with too many episodes of vomiting, nonbloody nonbilious. She also reports having developed substernal chest discomfort shortly after arriving to the emergency room, stating that it is 6 out of 10 at the time of interview. Reports that the pain is radiating throughout her chest, without alleviating or exacerbating features, pressure-like in nature. Upon arrival, the patient had a BP of 245/117, pulse 86, and SpO2 98% on room air. Laboratory evaluation revealed sodium 131, potassium 5.5, creatinine 11.11, glucose 641, anion gap 18, troponin I of 0.145. Chest x-ray revealed cardiomegaly with right-sided pleural effusion with interstitial edema. EKG revealed sinus rhythm @ [address]-T wave changes. Patient was admitted, was started on heparin drip for possible myocardial i nfarction. Troponin was cycled and that remained negative. Chest pain was likely secondary to hypertensive urgency/emergency. She was seen by cardiology and ACS was ruled out. Heparin drip was discontinued. He had an echocardiogram done that showed moderate pericardial department. This was likely secondary to end-stage renal disease. Monitoring was advised by cardiology. Patient was seen by nephrology, dialysis was resumed. Antihypertensive medications were restarted. In addition she was started on nitroglycerin drip and Cleviprex gtt. Subsequently her breathing and blood pressure improved. Patient was also found to have DKA and was hyperglycemic, she was started on insulin gtt. Once her anion gap closed the drip was discontinued. The patient is doing well. No further episodes of vomiting or shortness of breath. She was cleared by all consultants for discharge. She will be discharged in a stable condition. Time for discharge 35 minutes. Patient Condition at Discharge: Critical Plan - Discharge Summary New Discharge Prescriptions: Continue Aspirin EC [Ecotrin Low Dose] 81 mg PO DAILY Escitalopram [Lexapro] 20 mg PO DAILY rOPINIRole HCL [Requip] 0.5 mg PO HS Sevelamer [Renvela] 800 mg PO TID-W/MEALS 30 Days #90 tab Glucagon Emergency Kit 1 mg IM ONCE PRN #1 kit PRN Reason: Hypoglycemia cloNIDine HCL [Catapres] 0.3 mg PO TID tab NIFEdipine XL [Procardia XL] 90 mg PO DAILY #30 tablet Cyanocobalamin [Vitamin B-12] 1,000 mcg PO DAILY #60 tab lisinopriL [Zestril] 20 mg PO DAILY #30 tab Insulin Lispro [humaLOG Kwikpen] See Protocol SQ ACHS Isosorbide Mononitrate ER [Imdur] 30 mg PO HS Ergocalciferol (Vitamin D2) [Drisdol (50,000 Iu)] 1,250 mcg PO COPELAND Carvedilol [Coreg] 25 mg PO BID Acetaminophen Tab [Tylenol] 650 mg PO Q6HR PRN #30 tab PRN Reason: Fever And/ Or Pain Pantoprazole Sodium [Protonix] 40 mg PO BID 30 Days #60 tab Melatonin 5 - 10 mg PO HS PRN PRN Reason: Insomnia Darbepoetin Tate [Aranesp] 60 mcg SQ Q7D each Albuterol Inhaler [Ventolin Hfa Inhaler] 1 puff INHALATION RT-QID PRN 30 Days #8 gm PRN Reason: Shortness Of Breath Insulin Glargine,Hum.rec.anlog [Lantus Solostar Pen] 13 units SQ HS HYDROcodone/APAP 5-325MG [[place] 5-325] 1 tab PO Q6H PRN PRN Reason: Pain Discharge Medication List Aspirin EC [Ecotrin Low Dose] 81 mg PO DAILY 04/03/21 [History] Carvedilol [Coreg] 25 mg PO BID 04/03/21 [History] Ergocalciferol (Vitamin D2) [Drisdol (50,000 Iu)] 1,250 mcg PO COPELAND 04/03/21 [History] Isosorbide Mononitrate ER [Imdur] 30 mg PO HS 04/03/21 [History] Acetaminophen Tab [Tylenol] 650 mg PO Q6HR PRN #30 tab 04/09/21 [Rx] Escitalopram [Lexapro] 20 mg PO DAILY 04/17/21 [History] rOPINIRole HCL [Requip] 0.5 mg PO HS 04/17/21 [History] Sevelamer [Renvela] 800 mg PO TID-W/MEALS 30 Days #90 tab 05/31/21 [Rx] Pantoprazole Sodium [Protonix] 40 mg PO BID 30 Days #60 tab 06/04/21 [Rx] Glucagon Emergency Kit 1 mg IM ONCE PRN #1 kit 06/15/21 [Rx] Melatonin 5 - 10 mg PO HS PRN 06/29/21 [History] cloNIDine HCL [Catapres] 0.3 mg PO TID tab 08/07/21 [Rx] Albuterol Inhaler [Ventolin Hfa Inhaler] 1 puff INHALATION RT-QID PRN 30 Days #8 gm 09/06/21 [Rx] Cyanocobalamin [Vitamin B-12] 1,000 mcg PO DAILY #60 tab 09/06/21 [Rx] Darbepoetin Tate [Aranesp] 60 mcg SQ Q7D each 09/06/21 [Rx] NIFEdipine XL [Procardia XL] 90 mg PO DAILY #30 tablet 09/06/21 [Rx] lisinopriL [Zestril] 20 mg PO DAILY #30 tab 09/06/21 [Rx] HYDROcodone/APAP 5-325MG [[place] 5-325] 1 tab PO Q6H PRN 09/21/21 [History] Insulin Glargine,Hum.rec.anlog [Lantus Solostar Pen] 13 units SQ HS 09/21/21 [History] Insulin Lispro [humaLOG Kwikpen] See Protocol SQ ACHS 04/26/22 [History] Follow up Appointment(s)/Referral(s): None,Stated [Primary Care Provider] - 1-2 days
[2021-09-23 16:33] LABS: Glucose,Whole Blood 363 mg/dL (75-99)
[2021-09-26] MEDS ORDERED: ERGOCALCIFEROL 1,250 MCG (50,000 IU) CAPSULE PO SCH (09:00)
== END 2021-09-23 18:17 | disposition home or self-care (01) | DRG 304 ==
LOC: EC 20:38 → 2SICU 09-21 00:51 → 4SSUR 09-22 22:10
PROVIDERS: ADMIT Internal Medicine; ATTEND Internal Medicine
PROC: 5A1D70Z Performance of Urinary Filtration, Intermittent, Less than 6 Hours Per Day (ICD-10-PCS; principal; 2021-09-21)
DX: I16.1 Hypertensive emergency (principal); E10.10 Type 1 diabetes mellitus with ketoacidosis without coma; I50.33 Acute on chronic diastolic (congestive) heart failure; N18.6 End stage renal disease; I31.3 Pericardial effusion (noninflammatory); D63.1 Anemia in chronic kidney disease; E10.22 Type 1 diabetes mellitus with diabetic chronic kidney disease; E10.319 Type 1 diabetes mellitus with unspecified diabetic retinopathy without macular edema; E10.36 Type 1 diabetes mellitus with diabetic cataract; E10.42 Type 1 diabetes mellitus with diabetic polyneuropathy; I16.0 Hypertensive urgency; E10.43 Type 1 diabetes mellitus with diabetic autonomic (poly)neuropathy; I08.1 Rheumatic disorders of both mitral and tricuspid valves; R79.89 Other specified abnormal findings of blood chemistry; E66.9 Obesity, unspecified; F32.A Depression, unspecified; F41.9 Anxiety disorder, unspecified; I13.2 Hypertensive heart and chronic kidney disease with heart failure and with stage 5 chronic kidney disease, or end stage renal disease; G25.81 Restless legs syndrome; H54.8 Legal blindness, as defined in USA; I07.1 Rheumatic tricuspid insufficiency; I27.20 Pulmonary hypertension, unspecified; J45.909 Unspecified asthma, uncomplicated; K31.84 Gastroparesis; M89.8X9 Other specified disorders of bone, unspecified site; Z79.4 Long term (current) use of insulin; Z79.82 Long term (current) use of aspirin; Z79.899 Other long term (current) drug therapy; Z86.16 Personal history of COVID-19; Z86.73 Personal history of transient ischemic attack (TIA), and cerebral infarction without residual deficits; Z90.49 Acquired absence of other specified parts of digestive tract; Z99.2 Dependence on renal dialysis; Z91.041 Radiographic dye allergy status; Z91.013 Allergy to seafood; Z68.20 Body mass index [BMI] 20.0-20.9, adult; Z71.89 Other specified counseling; Z80.8 Family history of malignant neoplasm of other organs or systems; Z82.0 Family history of epilepsy and other diseases of the nervous system; Z82.49 Family history of ischemic heart disease and other diseases of the circulatory system; Z91.15 Patient's noncompliance with renal dialysis
CPT/HCPCS: 36415; 71045; 71046; 80048; 80051; 80053; 82009; 82565; 82728; 82803; 82947; 83036; 83540; 83550; 83735; 84100; 84484; 84520; 85025; 85610; 85730; 90935; 93005; 93308; 96365; 96366; 96367; 96375; 99291

== ENCOUNTER 2021-10-02 20:22 | Emergency (ER) | payer MEDICARE, OTHER ==
[2021-10-02 20:30] VITALS: BP 196/92; PULSE 78; RESP 18; TEMP 98.2
--- NOTE | 2021-10-02 20:57 | XR ---
EXAMINATION TYPE: XR knee complete RT DATE OF EXAM: 10/02/2021 COMPARISON: NONE HISTORY: Right knee pain TECHNIQUE: 3 views FINDINGS: There is no sign of fracture nor dislocation. Joint spaces are normal. No sign of joint eff usion. IMPRESSION: Negative right knee exam
[2021-10-02] MEDS ORDERED: ACET/COD 300 MG/30 MG STARTER PACK 6 TAB BTL PO STA (23:16)
--- NOTE | 2021-10-02 23:17 | ED ---
Lower Extremity Injury HPI - General Chief Complaint: Extremity Injury, Lower Stated Complaint: Right Knee Injury Time Seen by Provider: 10/02/21 23:08 Source: patient Mode of arrival: ambulatory Limitations: no limitations - History of Present Illness Initial Comments: 30-year-old female presents emergency Department with right knee pain. Patient was attempting to get up out of bed when she tripped and fell. Landed on both knees. States that the right has been hurting worse than the left. She has been able to ambulate however pain is worse when she bends her right knee. No calf pain. No history of DVT or PE. Patient currently on heparin. Denies any numbness or tingling in her extremity. No other alleviating, precipitating or modifying factors - Related Data Home Medications Medication Instructions Recorded Confirmed Aspirin EC [Ecotrin Low Dose] 81 mg PO DAILY 04/03/21 10/03/21 Carvedilol [Coreg] 25 mg PO BID 04/03/21 10/03/21 Ergocalciferol (Vitamin D2) 1,250 mcg PO COPELAND 04/03/21 10/03/21 [Drisdol (50,000 Iu)] Isosorbide Mononitrate ER [Imdur] 30 mg PO HS 04/03/21 10/03/21 Escitalopram [Lexapro] 20 mg PO DAILY 04/17/21 10/03/21 rOPINIRole HCL [Requip] 0.5 mg PO HS 04/17/21 10/03/21 Melatonin 5 - 10 mg PO HS PRN 06/29/21 10/03/21 HYDROcodone/APAP 5-325MG [[place] 1 tab PO Q6H PRN 09/21/21 10/03/21 5-325] Insulin Glargine,Hum.rec.anlog 13 units SQ HS 09/21/21 10/03/21 [Lantus Solostar Pen] Insulin Lispro [humaLOG Kwikpen] See Protocol SQ ACHS 09/21/21 10/03/21 Previous Rx's Medication Instructions Recorded Acetaminophen Tab [Tylenol] 650 mg PO Q6HR PRN #30 tab 04/09/21 Sevelamer [Renvela] 800 mg PO TID-W/MEALS 30 Days #90 05/31/21 tab Pantoprazole Sodium [Protonix] 40 mg PO BID 30 Days #60 tab 06/04/21 Glucagon Emergency Kit 1 mg IM ONCE PRN #1 kit 06/15/21 cloNIDine HCL [Catapres] 0.3 mg PO TID tab 08/07/21 Albuterol Inhaler [Ventolin Hfa 1 puff INHALATION RT-QID PRN 30 09/06/21 Inhaler] Days #8 gm Cyanocobalamin [Vitamin B-12] 1,000 mcg PO DAILY #60 tab 09/06/21 Darbepoetin Tate [Aranesp] 60 mcg SQ Q7D each 09/06/21 NIFEdipine XL [Procardia XL] 90 mg PO DAILY #30 tablet 09/06/21 lisinopriL [Zestril] 20 mg PO DAILY #30 tab 09/06/21 Allergies Allergy/AdvReac Type Severity Reaction Status Date / Time Fish Containing Products Allergy Rash/Hives Verified 10/02/21 20:30 [Fish] iodine Allergy Anaphylaxis Verified 10/02/21 20:30 Review of Systems ROS Statement: Those systems with pertinent positive or pertinent negative responses have been documented in the HPI. ROS Other: All systems not noted in ROS Statement are negative. Past Medical History Past Medical History: CVA/TIA, Diabetes Mellitus, Dialysis, Eye Disorder, Hypertension, Renal Disease Additional Past Medical History / Comment(s): ESRD with hemodialysis M/W/F, IDDM type 1, DKA, neuropathy bilateral legs/feet, diabetic retinopathy/legally b darian, RLS, gastritis, severe hypokalemia, fluid retention in abdomin/legs. History of Any Multi-Drug Resistant Organisms: None Reported Past Surgical History: Appendectomy, Section, Cholecystectomy Additional Past Surgical History / Comment(s): fistula left arm Past Anesthesia/Blood Transfusion Reactions: No Reported Reaction Past Psychological History: Anxiety, Depression Smoking Status: Never smoker Past Alcohol Use History: None Reported Past Drug Use History: None Reported - Past Family History Mother Family Medical History: Cancer, Hypertension Additional Family Medical History / Comment(s): Thyroid cancer, bipolar Father Family Medical History: Seizure Disorder Additional Family Medical History / Comment(s): Epilepsy General Exam Limitations: no limitations General appearance: alert, in no apparent distress Head exam: Present: atraumatic, normocephalic, normal inspection Eye exam: Present: normal appearance, PERRL, EOMI. Absent: scleral icterus, conjunctival injection, periorbital swelling ENT exam: Present: normal exam, mucous membranes moist Neck exam: Present: normal inspection. Absent: tenderness, meningismus, lymphadenopathy Respiratory exam: Present: normal lung sounds bilaterally. Absent: respiratory distress, wheezes, rales, rhonchi, stridor Cardiovascular Exam: Present: regular rate, normal rhythm, normal heart sounds. Absent: systolic murmur, diastolic murmur, rubs, gallop, clicks GI/Abdominal exam: Present: soft, normal bowel sounds. Absent: distended, tenderness, guarding, rebound, rigid Extremities exam: Present: normal inspection, full ROM, tenderness (mild tenderness at joint line when knee flexed. No joint effusion. No calf tenderness. 2+ DP and PT pulses), normal capillary refill. Absent: pedal edema, joint swelling, calf tenderness Back exam: Present: normal inspection Neurological exam: Present: alert, oriented X3, CN II-XII intact Psychiatric exam: Present: normal affect, normal mood Skin exam: Present: warm, dry, intact, normal color. Absent: rash Course Vital Signs 10/02/21 20:28 Temperature 98.2 F Pulse Rate 78 Respiratory 18 Rate Blood Pressure 196/92 O2 Sat by Pulse 98 Oximetry Medical Decision Making - Medical Decision Making Upon arrival patient is placed into a ATP. Thorough history and physical exam was performed. X-ray is performed which demonstrates no acute fractures. I discussed diagnosis, differential treatment options. Patient will be placed in a knee immobilizer. Instructed to follow-up with orthopedics for further evaluation and return for any new or worsening symptoms. Patient agreement treatment plan she was discharged home in stable condition Disposition Clinical Impression: Knee pain Disposition: HOME SELF-CARE Condition: Stable Instructions (If sedation given, give patient instructions): Knee Pain (ED) Additional Instructions: Follow up with your primary care doctor in 2-4 days. You may need repeat imaging in 7-10 days if pain persists. Return for any worsening symptoms Is patient prescribed a controlled substance at d/c from ED?: No Referrals: None,Stated [Primary Care Provider] - 1-2 days Alo Anderson MD [Medical Doctor] - 1-2 days Time of Disposition: 23:17
== END 2021-10-02 23:32 | disposition home or self-care (01) ==
LOC: EC 20:22
DX: M25.561 Pain in right knee (principal); E10.22 Type 1 diabetes mellitus with diabetic chronic kidney disease; E10.40 Type 1 diabetes mellitus with diabetic neuropathy, unspecified; E10.319 Type 1 diabetes mellitus with unspecified diabetic retinopathy without macular edema; I12.0 Hypertensive chronic kidney disease with stage 5 chronic kidney disease or end stage renal disease; N18.6 End stage renal disease; F32.A Depression, unspecified; F41.9 Anxiety disorder, unspecified; Z79.4 Long term (current) use of insulin; Z79.82 Long term (current) use of aspirin; Z86.73 Personal history of transient ischemic attack (TIA), and cerebral infarction without residual deficits; Z79.899 Other long term (current) drug therapy; Z99.2 Dependence on renal dialysis; Z79.51 Long term (current) use of inhaled steroids; W06.XXXA Fall from bed, initial encounter
CPT/HCPCS: 99284

== ENCOUNTER 2021-10-15 07:52 | Inpatient (IN) | payer MEDICARE, OTHER ==
[2021-10-15 08:04] VITALS: RESP 18; TEMP 97.7
[2021-10-15] MEDS ORDERED: HYDROmorphone 0.5 MG/0.5 ML SYRINGE IVP STA (08:10)
[2021-10-15] MEDS ORDERED: LORazepam 2 MG/ML INJ IV STA (08:10)
[2021-10-15] MEDS ORDERED: LABETALOL 5 MG/ML VIAL MDV IVP STA (08:11)
[2021-10-15] MEDS ORDERED: cloNIDine HCL 0.1 MG TAB PO STA (08:11)
[2021-10-15 08:54] LABS: Basophils # (A) 0.1 k/uL (0-0.2); Basophils % (A) 1 %; Eosinophils # (A) 0.2 k/uL (0-0.7); Eosinophils % (A) 2 %; HCT 33.2 % (34.0-46.0); Lymphocytes # (A) 0.6 k/uL (1.0-4.8); Lymphocytes % (A) 9 %; MCH 29.8 pg (25.0-35.0); MCHC 33.2 g/dL (31.0-37.0); Mean Platelet Volume 8.6; Monocytes # (A) 0.4 k/uL (0-1.0); Monocytes % (A) 6 %; Neutrophils # (A) 5.1 k/uL (1.3-7.7); Neutrophils % (A) 79 %; Platelet Count 318 k/uL (150-450); Poikilocytosis Slight; RBC 3.69 m/uL (3.80-5.40); RDW 15.4 % (11.5-15.5); WBC 6.4 k/uL (3.8-10.6)
--- NOTE | 2021-10-15 09:12 | ED ---
General Adult HPI - General Chief complaint: Recheck/Abnormal Lab/Rx Stated complaint: Hypertensive, vomiting Time Seen by Provider: 10/15/21 07:57 Source: patient, RN notes reviewed Mode of arrival: ambulatory Limitations: no limitations - History of Present Illness Initial comments: This a 30-year-old female presents emergency Department with chief complaint nausea vomiting hypertension. Patient was discharged from the hospital 2 days ago after DKA, hypertensive emergency. Patient states that she was started on nifedipine states that she picked up her prescription has been taking her medication as directed but states she started having repeated bouts of emesis around 2 AM. She states she checked her blood pressure which was elevated. Patient complains of pain which is chronic in nature. She isn't uncontrolled diabetic on dialysis. She was scheduled go dialysis today but states that she called stating that she was vomiting and that she was told to come emergency department. Patient denies any fevers or chills. - Related Data Home Medications Medication Instructions Recorded Confirmed Aspirin EC [Ecotrin Low Dose] 81 mg PO DAILY 04/03/21 10/03/21 Carvedilol [Coreg] 25 mg PO BID 04/03/21 10/03/21 Ergocalciferol (Vitamin D2) 1,250 mcg PO COPELAND 04/03/21 10/03/21 [Drisdol (50,000 Iu)] Isosorbide Mononitrate ER [Imdur] 30 mg PO HS 04/03/21 10/03/21 Escitalopram [Lexapro] 20 mg PO DAILY 04/17/21 10/03/21 rOPINIRole HCL [Requip] 0.5 mg PO HS 04/17/21 10/03/21 Melatonin 5 - 10 mg PO HS PRN 06/29/21 10/03/21 HYDROcodone/APAP 5-325MG [[place] 1 tab PO Q6H PRN 09/21/21 10/03/21 5-325] Insulin Glargine,Hum.rec.anlog 13 units SQ HS 09/21/21 10/03/21 [Lantus Solostar Pen] Insulin Lispro [humaLOG Kwikpen] See Protocol SQ ACHS 09/21/21 10/03/21 Previous Rx's Medication Instructions Recorded Acetaminophen Tab [Tylenol] 650 mg PO Q6HR PRN #30 tab 04/09/21 Pantoprazole Sodium [Protonix] 40 mg PO BID 30 Days #60 tab 06/04/21 Glucagon Emergency Kit 1 mg IM ONCE PRN #1 kit 06/15/21 cloNIDine HCL [Catapres] 0.3 mg PO TID tab 08/07/21 Albuterol Inhaler [Ventolin Hfa 1 puff INHALATION RT-QID PRN 30 09/06/21 Inhaler] Days #8 gm Cyanocobalamin [Vitamin B-12] 1,000 mcg PO DAILY #60 tab 09/06/21 Darbepoetin Tate [Aranesp] 60 mcg SQ Q7D each 09/06/21 Atorvastatin [Lipitor] 40 mg PO DAILY 30 Days #30 tab 10/13/21 Calcium Acetate [PhosLo] 667 mg PO TID-W/MEALS 30 Days #90 10/13/21 tab NIFEdipine XL [Procardia XL] 120 mg PO DAILY 30 Days #60 tab 10/13/21 Szfjnxej-Qdfmzsbejj-Yyld Oint 1 applic TOPICAL BID #1 each 10/13/21 [Triple Antibiotic Ointment] lisinopriL [Zestril] 40 mg PO DAILY 30 Days #60 tab 10/13/21 Allergies Allergy/AdvReac Type Severity Reaction Status Date / Time Fish Containing Products Allergy Rash/Hives Verified 10/15/21 07:56 [Fish] iodine Allergy Anaphylaxis Verified 10/15/21 07:56 Review of Systems ROS Statement: Those systems with pertinent positive or pertinent negative responses have been documented in the HPI. ROS Other: All systems not noted in ROS Statement are negative. Past Medical History Past Medical History: CVA/TIA, Diabetes Mellitus, Dialysis, Eye Disorder, Hypertension, Renal Disease Additional Past Medical History / Comment(s): ESRD with hemodialysis M/W/F, IDDM type 1, DKA, neuropathy bilateral legs/feet, diabetic retinopathy/legally blind, RLS, gastritis, severe hypokalemia, fluid retention in abdomin/legs. History of Any Multi-Drug Resistant Organisms: None Reported Past Surgical History: Appendectomy, Section, Cholecystectomy Additional Past Surgical History / Comment(s): fistula left arm Past Anesthesia/Blood Transfusion Reactions: No Reported Reaction Past Psychological History: Anxiety, Depression Smoking Status: Never smoker Past Alcohol Use History: None Reported Past Drug Use History: None Reported - Past Family History Mother Family Medical History: Cancer, Hypertension Additional Family Medical History / Comment(s): Thyroid cancer, bipolar Father Family Medical History: Seizure Disorder Additional Family Medical History / Comment(s): Epilepsy General Exam Limitations: no limitations General appearance: alert, in no apparent distress Head exam: Present: atraumatic, normocephalic, normal inspection Eye exam: Present: normal appearance, PERRL, EOMI. Absent: scleral icterus, conjunctival injection, periorbital swelling ENT exam: Present: normal exam, normal oropharynx, mucous membranes moist Neck exam: Present: normal inspection, full ROM. Absent: tenderness, meningismus, lymphadenopathy Respiratory exam: Present: normal lung sounds bilaterally. Absent: respiratory distress, wheezes, rales, rhonchi, stridor Cardiovascular Exam: Present: regular rate, normal rhythm, normal heart sounds. Absent: systolic murmur, diastolic murmur, rubs, gallop, clicks GI/Abdominal exam: Present: soft, tenderness, normal bowel sounds. Absent: distended, guarding, rebound, rigid Course Vital Signs 10/15/21 10/15/21 07:53 09:19 Temperature 97.7 F Pulse Rate 68 82 Respiratory 18 Rate Blood Pressure 216/101 174/91 O2 Sat by Pulse 100 Oximetry Medical Decision Making - Medical Decision Making 30-year-old female presented for hypertension, vomiting. Patient's potassium 7.4. Patient is requesting dialysis in which she is due for it today. There is no evidence of fluid overload. Patient blood pressure is improved after multiple medications patient will be managed for dialysis contact to dialysis today. - Lab Data Result diagrams: 10/15/21 08:23 10/15/21 08:23 Lab Results 10/15/21 10/15/21 Range/Units 08:23 08:23 WBC 6.4 (3.8-10.6) k/uL RBC 3.69 L (3.80-5.40) m/uL Hgb 11.0 L (11.4-16.0) gm/dL Hct 33.2 L (34.0-46.0) % MCV 90.0 (80.0-100.0) fL MCH 29.8 (25.0-35.0) pg MCHC 33.2 (31.0-37.0) g/dL RDW 15.4 (11.5-15.5) % Plt Count 318 (150-450) k/uL MPV 8.6 Neutrophils % 79 % Lymphocytes % 9 % Monocytes % 6 % Eosinophils % 2 % Basophils % 1 % Neutrophils # 5.1 (1.3-7.7) k/uL Lymphocytes # 0.6 L (1.0-4.8) k/uL Monocytes # 0.4 (0-1.0) k/uL Eosinophils # 0.2 (0-0.7) k/uL Basophils # 0.1 (0-0.2) k/uL Poikilocytosis Slight Sodium 132 L (137-145) mmol/L Potassium 7.3 H* (3.5-5.1) mmol/L Chloride 94 L (98-107) mmol/L Carbon Dioxide 22 (22-30) mmol/L Anion Gap 16 mmol/L BUN 43 H (7-17) mg/dL Creatinine 6.54 H (0.52-1.04) mg/dL Est GFR (CKD-EPI)AfAm 9 (>60 ml/min/1.73 sqM) Est GFR (CKD-EPI)NonAf 8 (>60 ml/min/1.73 sqM) Glucose 282 H (74-99) mg/dL Calcium 9.3 (8.4-10.2) mg/dL Phosphorus 3.4 (2.5-4.5) mg/dL Magnesium 2.1 (1.6-2.3) mg/dL Total Bilirubin 0.5 (0.2-1.3) mg/dL AST 27 (14-36) U/L ALT 26 (4-34) U/L Alkaline Phosphatase 170 H (38-126) U/L Total Protein 7.2 (6.3-8.2) g/dL Albumin 4.5 (3.5-5.0) g/dL Lipase 710 H (23-300) U/L Critical Care Time Critical Care Time: Yes Total Critical Care Time: 35 Disposition Clinical Impression: Hypertensive emergency, ESRD (end stage renal disease) on dialysis, Hyperkalemia Disposition[facility] Condition: Poor Referrals: Roque Buckner MD [Primary Care Provider] - 1-2 days Time of Disposition: 09:29
--- NOTE | 2021-10-15 09:12 | XR ---
EXAMINATION TYPE: XR chest 1V DATE OF EXAM: 10/15/2021 COMPARISON: NONE HISTORY: Pain TECHNIQUE: Single frontal view of the chest is obtained. FINDINGS: There is no focal air space opacity, pleural effusion, or pneumothorax seen. The cardiac silhouette size is within normal limits. The osseous structures are intact. Heart size mildly promi nent. Surgical clips in the gallbladder fossa. IMPRESSION: Mild prominence of the cardiac silhouette correlate clinically.
[2021-10-15 09:13] LABS: Albumin 4.5 g/dL (3.5-5.0); Calcium 9.3 mg/dL (8.4-10.2); Magnesium 2.1 mg/dL (1.6-2.3); Phosphorus 3.4 mg/dL (2.5-4.5); Total Bilirubin 0.5 mg/dL (0.2-1.3); Total Protein 7.2 g/dL (6.3-8.2)
[2021-10-15 09:15] LABS: Potassium 7.3 mmol/L (3.5-5.1)
[2021-10-15] MEDS ORDERED: PANTOPRAZOLE 40 MG/10 ML VIAL IVP SCH (10:45)
--- NOTE | 2021-10-15 11:10 | US ---
EXAMINATION TYPE: US gallbladder DATE OF EXAM: 10/15/2021 COMPARISON: CT CLINICAL HISTORY: abdominal pain. Abnormal labs, GB removed EXAM MEASUREMENTS: Liver Length: 18.1 cm CBD: 0.5 cm Right Kidney: 7.6 x 2.9 x 3.0 cm Pancreas: wnl Liver: Enlarged, heterogeneous Gallbladder: Surgically absent Evidence for sonographic Mosley's sign: No CBD: wnl Right Kidney: Small in size, lower pole gassed out IMPRESSION: Hepatomegaly with nonspecific pattern to the liver can be seen with hepatic steatosis, he patitis or diffuse hepatocellular disease.
[2021-10-15] MEDS ORDERED: NALOXONE 0.4 MG/ML 1 ML VIAL IV PRN (11:30)
[2021-10-15] MEDS ORDERED: ACETAMINOPHEN TAB 325 MG TAB PO PRN (11:30)
[2021-10-15] MEDS ORDERED: HYDROcodone/APAP 5-325MG 1 EACH TAB PO PRN (11:31)
[2021-10-15] MEDS ORDERED: ALBUTEROL HFA INHALER INHALATION PRN (11:31)
[2021-10-15] MEDS ORDERED: CALCIUM ACETATE 667 MG TAB PO SCH (12:30)
[2021-10-15] MEDS ORDERED: INSULIN ASPART (NovoLOG) 100 UNIT/ML VIAL SQ SCH (12:30)
[2021-10-15] MEDS ORDERED: NON FORMULARY DRUG (Insulin Lispro [Humalog Kwikpen] 100 UNIT/ML Insuln.Pen) SQ SCH (12:30)
--- NOTE | 2021-10-15 12:57 | P.DS ---
Providers Date of admission: 10/15/21 11:34 Attending physician: Cecilia Sheets Consults: 10/15/21 09:26 Consult Physician Urgent Consulting Provider: Chyna Wiseman Consult Reason/Comments: Dialysis Do you want consulting provider notified?: Yes Primary care physician: Rouqe Behven [facility] Course: Please refer to maintain HPI for further details Patient Condition at Discharge: Poor Plan - Discharge Summary New Discharge Prescriptions: New Sodium Zirconium Cyclosilicate [Lokelma] 10 gm PO DAILY #30 Pantoprazole Sodium [Protonix] 20 mg PO BID #30 tab No Action Aspirin EC [Ecotrin Low Dose] 81 mg PO DAILY Escitalopram [Lexapro] 20 mg PO DAILY rOPINIRole HCL [Requip] 0.5 mg PO HS Glucagon Emergency Kit 1 mg IM ONCE PRN #1 kit PRN Reason: Hypoglycemia cloNIDine HCL [Catapres] 0.3 mg PO TID tab Cyanocobalamin [Vitamin B-12] 1,000 mcg PO DAILY #60 tab Insulin Lispro [humaLOG Kwikpen] See Protocol SQ ACHS Atorvastatin [Lipitor] 40 mg PO DAILY 30 Days #30 tab Calcium Acetate [PhosLo] 667 mg PO TID-W/MEALS 30 Days #90 tab Rqtnwhfh-Ixyrxejgnn-Miss Oint [Triple Antibiotic Ointment] 1 applic TOPICAL BID #1 each lisinopriL [Zestril] 40 mg PO DAILY 30 Days #60 tab Isosorbide Mononitrate ER [Imdur] 30 mg PO HS Ergocalciferol (Vitamin D2) [Drisdol (50,000 Iu)] 1,250 mcg PO COPELAND Carvedilol [Coreg] 25 mg PO BID Acetaminophen Tab [Tylenol] 650 mg PO Q6HR PRN #30 tab PRN Reason: Fever And/ Or Pain Pantoprazole Sodium [Protonix] 40 mg PO BID 30 Days #60 tab Melatonin 5 - 10 mg PO HS PRN PRN Reason: Insomnia Darbepoetin Tate [Aranesp] 60 mcg SQ Q7D each Albuterol Inhaler [Ventolin Hfa Inhaler] 1 puff INHALATION RT-QID PRN 30 Days #8 gm PRN Reason: Shortness Of Breath Insulin Glargine,Hum.rec.anlog [Lantus Solostar Pen] 13 units SQ HS HYDROcodone/APAP 5-325MG [[place] 5-325] 1 tab PO Q6H PRN PRN Reason: Pain NIFEdipine XL [Procardia XL] 120 mg PO DAILY 30 Days #60 tab Discharge Medication List Aspirin EC [Ecotrin Low Dose] 81 mg PO DAILY 04/03/21 [History] Carvedilol [Coreg] 25 mg PO BID 04/03/21 [History] Ergocalciferol (Vitamin D2) [Drisdol (50,000 Iu)] 1,250 mcg PO COPELAND 04/03/21 [History] Isosorbide Mononitrate ER [Imdur] 30 mg PO HS 04/03/21 [History] Acetaminophen Tab [Tylenol] 650 mg PO Q6HR PRN #30 tab 04/09/21 [Rx] Escitalopram [Lexapro] 20 mg PO DAILY 04/17/21 [History] rOPINIRole HCL [Requip] 0.5 mg PO HS 04/17/21 [History] Pantoprazole Sodium [Protonix] 40 mg PO BID 30 Days #60 tab 06/04/21 [Rx] Glucagon Emergency Kit 1 mg IM ONCE PRN #1 kit 06/15/21 [Rx] Melatonin 5 - 10 mg PO HS PRN 06/29/21 [History] cloNIDine HCL [Catapres] 0.3 mg PO TID tab 08/07/21 [Rx] Albuterol Inhaler [Ventolin Hfa Inhaler] 1 puff INHALATION RT-QID PRN 30 Days #8 gm 09/06/21 [Rx] Cyanocobalamin [Vitamin B-12] 1,000 mcg PO DAILY #60 tab 09/06/21 [Rx] Darbepoetin Tate [Aranesp] 60 mcg SQ Q7D each 09/06/21 [Rx] HYDROcodone/APAP 5-325MG [[place] 5-325] 1 tab PO Q6H PRN 09/21/21 [History] Insulin Glargine,Hum.rec.anlog [Lantus Solostar Pen] 13 units SQ HS 09/21/21 [History] Insulin Lispro [humaLOG Kwikpen] See Protocol SQ ACHS 09/21/21 [History] Atorvastatin [Lipitor] 40 mg PO DAILY 30 Days #30 tab 10/13/21 [Rx] Calcium Acetate [PhosLo] 667 mg PO TID-W/MEALS 30 Days #90 tab 10/13/21 [Rx] NIFEdipine XL [Procardia XL] 120 mg PO DAILY 30 Days #60 tab 10/13/21 [Rx] Hvynkzpw-Vovkquffvu-Xiiv Oint [Triple Antibiotic Ointment] 1 applic TOPICAL BID #1 each 10/13/21 [Rx] lisinopriL [Zestril] 40 mg PO DAILY 30 Days #60 tab 10/13/21 [Rx] Pantoprazole Sodium [Protonix] 20 mg PO BID #30 tab 10/15/21 [Rx] Sodium Zirconium Cyclosilicate [Lokelma] 10 gm PO DAILY #30 10/15/21 [Rx] Follow up Appointment(s)/Referral(s): Roque Buckner MD [Primary Care Provider] - 3 Days Discharge Disposition: HOME SELF-CARE
--- NOTE | 2021-10-15 12:57 | P.HPIM ---
History of Present Illness Patient is a 30-year-old female known to my service from multiple hospitalizations patient is medical problems including uncontrolled the type 1 diabetes mellitus patient had multiple admissions for DKA patient blood pressures are quite labile. Patient given with complaints of epigastric abdominal pain and retrosternal pain along with nausea vomiting which started today morning. Patient is found to have mildly elevated lipase of 700. Patient the has end-stage renal disease from diabetes nephropathy and patient is on hemodialysis. Patient has uncontrolled blood sugars constantly highly elevated potassium. Patient the is also on lisinopril at 40 mg as recommended to continue and this potassium is expected to improve with hemodialysis REVIEW OF SYSTEMS: CONSTITUTIONAL: No fever, no malaise, no fatigue. HEENT: No recent visual problems or hearing problems. Denied any sore throat. CARDIOVASCULAR: No chest pain, orthopnea, PND, no palpitations, no syncope. PULMONARY: No shortness of breath, no cough, no hemoptysis. GASTROINTESTINAL: As mentioned in HPI NEUROLOGICAL: No headaches, no weakness, no numbness. HEMATOLOGICAL: Denies any bleeding or petechiae. GENITOURINARY: Denies any burning micturition, frequency, or urgency. MUSCULOSKELETAL/RHEUMATOLOGICAL: Denies any joint pain, swelling, or any muscle pain. ENDOCRINE: Denies any polyuria or polydipsia. The rest of the 14-point review of systems is negative. PHYSICAL EXAMINATION: GENERAL: The patient is alert and oriented x3, not in any acute distress. Well developed, well nourished. HEENT: Pupils are round and equally reacting to light. EOMI. No scleral icterus. No conjunctival pallor. Normocephalic, atraumatic. No pharyngeal erythema. No thyromegaly. CARDIOVASCULAR: S1 and S2 present. No murmurs, rubs, or gallops. PULMONARY: Chest is clear to auscultation, no wheezing or crackles. ABDOMEN: Soft, mild epigastric abdominal tenderness nondistended, normoactive bowel sounds. No palpable organomegaly. MUSCULOSKELETAL: No joint swelling or deformity. EXTREMITIES: No cyanosis, clubbing, or pedal edema. NEUROLOGICAL: Gross neurological examination did not reveal any focal deficits. SKIN: No rashes. Assessment and plan -Epigastric abdominal pain nausea vomiting: We'll see secondary to gastritis lipase is mildly elevated not high enough to say pancreatitis and abdominal pain improved and patient wanted to go home if she can tolerate diet today after hemodialysis patient will be discharged -Hyperkalemia secondary to end-stage renal disease and the lisinopril expected to improve with hemodialysis. -History of congestive heart failure chronic diastolic dysfunction without any acute exacerbation -Pulmonary attention -Anemia of chronic kidney disease -Hypertensive urgency Past Medical History Past Medical History: CVA/TIA, Diabetes Mellitus, Dialysis, Eye Disorder, Hypertension, Renal Disease Additional Past Medical History / Comment(s): ESRD with hemodialysis M/W/F, IDDM type 1, DKA, neuropathy bilateral legs/feet, diabetic retinopathy/legally blind, RLS, gastritis, severe hypokalemia, fluid retention in abdomin/legs. History of Any Multi-Drug Resistant Organisms: None Reported Past Surgical History: Appendectomy, Section, Cholecystectomy Additional Past Surgical History / Comment(s): fistula left arm Past Anesthesia/Blood Transfusion Reactions: No Reported Reaction Past Psychological History: Anxiety, Depression Smoking Status: Never smoker Past Alcohol Use History: None Reported Past Drug Use History: None Reported - Past Family History Mother Family Medical History: Cancer, Hypertension Additional Family Medical History / Comment(s): Thyroid cancer, bipolar Father Family Medical History: Seizure Disorder Additional Family Medical History / Comment(s): Epilepsy Medications and Allergies Home Medications Medication Instructions Recorded Confirmed Type Aspirin EC [Ecotrin Low Dose] 81 mg PO DAILY 04/03/21 10/15/21 History Carvedilol [Coreg] 25 mg PO BID 04/03/21 10/15/21 History Ergocalciferol (Vitamin D2) 1,250 mcg PO COPELAND 04/03/21 10/15/21 History [Drisdol (50,000 Iu)] Isosorbide Mononitrate ER [Imdur] 30 mg PO HS 04/03/21 10/15/21 History Acetaminophen Tab [Tylenol] 650 mg PO Q6HR PRN #30 tab 04/09/21 10/15/21 Rx Escitalopram [Lexapro] 20 mg PO DAILY 04/17/21 10/15/21 History rOPINIRole HCL [Requip] 0.5 mg PO HS 04/17/21 10/15/21 History Pantoprazole Sodium [Protonix] 40 mg PO BID 30 Days #60 tab 06/04/21 10/15/21 Rx Glucagon Emergency Kit 1 mg IM ONCE PRN #1 kit 06/15/21 10/15/21 Rx Melatonin 5 - 10 mg PO HS PRN 06/29/21 10/15/21 History cloNIDine HCL [Catapres] 0.3 mg PO TID tab 08/07/21 10/15/21 Rx Albuterol Inhaler [Ventolin Hfa 1 puff INHALATION RT-QID PRN 30 09/06/21 10/15/21 Rx Inhaler] Days #8 gm Cyanocobalamin [Vitamin B-12] 1,000 mcg PO DAILY #60 tab 09/06/21 10/15/21 Rx Darbepoetin Tate [Aranesp] 60 mcg SQ Q7D each 09/06/21 10/15/21 Rx HYDROcodone/APAP 5-325MG [[place] 1 tab PO Q6H PRN 09/21/21 10/15/21 History 5-325] Insulin Glargine,Hum.rec.anlog 13 units SQ HS 09/21/21 10/15/21 History [Lantus Solostar Pen] Insulin Lispro [humaLOG Kwikpen] See Protocol SQ ACHS 09/21/21 10/15/21 History Atorvastatin [Lipitor] 40 mg PO DAILY 30 Days #30 tab 10/13/21 10/15/21 Rx Calcium Acetate [PhosLo] 667 mg PO TID-W/MEALS 30 Days #90 10/13/21 10/15/21 Rx tab NIFEdipine XL [Procardia XL] 120 mg PO DAILY 30 Days #60 tab 10/13/21 10/15/21 Rx Knewegtp-Ywnempadbp-Tjvs Oint 1 applic TOPICAL BID #1 each 10/13/21 10/15/21 Rx [Triple Antibiotic Ointment] lisinopriL [Zestril] 40 mg PO DAILY 30 Days #60 tab 10/13/21 10/15/21 Rx Pantoprazole Sodium [Protonix] 20 mg PO BID #30 tab 10/15/21 Rx Sodium Zirconium Cyclosilicate 10 gm PO DAILY #30 10/15/21 Rx [Lokelma] Allergies Allergy/AdvReac Type Severity Reaction Status Date / Time Fish Containing Products Allergy Rash/Hives Verified 10/15/21 07:56 [Fish] iodine Allergy Anaphylaxis Verified 10/15/21 07:56 Physical Exam Vitals: Vital Signs Temp Pulse Resp BP Pulse Ox 10/15/21 09:19 82 174/91 10/15/21 07:53 97.7 F 68 18 216/101 100 Intake and Output 10/14/21 10/15/21 10/15/21 22:59 06:59 14:59 Other: Weight 45.359 kg Results CBC & Chem 7: 10/15/21 08:23 10/15/21 08:23 Labs: Abnormal Lab Results - Last 24 Hours (Table) 10/15/21 10/15/21 Range/Units 08:23 08:23 RBC 3.69 L (3.80-5.40) m/uL Hgb 11.0 L (11.4-16.0) gm/dL Hct 33.2 L (34.0-46.0) % Lymphocytes # 0.6 L (1.0-4.8) k/uL Sodium 132 L (137-145) mmol/L Potassium 7.3 H* (3.5-5.1) mmol/L Chloride 94 L (98-107) mmol/L BUN 43 H (7-17) mg/dL Creatinine 6.54 H (0.52-1.04) mg/dL Glucose 282 H (74-99) mg/dL Alkaline Phosphatase 170 H (38-126) U/L Lipase 710 H (23-300) U/L
[2021-10-15] MEDS ORDERED: cloNIDine HCL 0.1 MG TAB PO SCH (16:00)
[2021-10-15] MEDS ORDERED: carvediloL 12.5 MG TAB PO SCH (17:30)
[2021-10-15] MEDS ORDERED: PANTOPRAZOLE 40 MG TABLET PO SCH (17:30)
[2021-10-15 17:32] VITALS: BP 126/78; PULSE 80
[2021-10-15] MEDS ORDERED: INSULIN DETEMIR (LEVEMIR) 100 UNIT/ML SYR SQ SCH (21:00)
[2021-10-15] MEDS ORDERED: ISOSORBIDE MONONITRATE ER 30 MG TAB.ER.24H PO SCH (21:00)
[2021-10-16] MEDS ORDERED: lisinopriL 20 MG TAB PO SCH (09:00)
[2021-10-16] MEDS ORDERED: ASPIRIN 81 MG PO SCH (09:00)
[2021-10-16] MEDS ORDERED: ATORVASTATIN 40 MG TAB PO SCH (09:00)
[2021-10-16] MEDS ORDERED: CYANOCOBALAMIN 500 MCG TAB PO SCH (09:00)
[2021-10-16] MEDS ORDERED: ESCITALOPRAM 20 MG TAB PO SCH (09:00)
[2021-10-17] MEDS ORDERED: ERGOCALCIFEROL 1,250 MCG (50,000 IU) CAPSULE PO SCH (09:00)
[2021-10-20] MEDS ORDERED: DARBEPOETIN ALFA 60 MCG/0.3 ML SYRINGE SQ SCH (09:00)
== END 2021-10-15 17:29 | disposition home or self-care (01) | DRG 291 ==
LOC: EC 07:52 → 4SSUR 11:34
PROVIDERS: ADMIT Internal Medicine; ATTEND Internal Medicine
DX: I13.2 Hypertensive heart and chronic kidney disease with heart failure and with stage 5 chronic kidney disease, or end stage renal disease (principal); N18.6 End stage renal disease; I16.1 Hypertensive emergency; I50.32 Chronic diastolic (congestive) heart failure; R03.0 Elevated blood-pressure reading, without diagnosis of hypertension; Z99.2 Dependence on renal dialysis; E87.5 Hyperkalemia; E10.21 Type 1 diabetes mellitus with diabetic nephropathy; D63.1 Anemia in chronic kidney disease; E10.22 Type 1 diabetes mellitus with diabetic chronic kidney disease; E10.319 Type 1 diabetes mellitus with unspecified diabetic retinopathy without macular edema; I16.0 Hypertensive urgency; E10.65 Type 1 diabetes mellitus with hyperglycemia; E10.40 Type 1 diabetes mellitus with diabetic neuropathy, unspecified; F32.A Depression, unspecified; F41.9 Anxiety disorder, unspecified; G25.81 Restless legs syndrome; H54.8 Legal blindness, as defined in USA; K29.70 Gastritis, unspecified, without bleeding; Z79.4 Long term (current) use of insulin; Z79.82 Long term (current) use of aspirin; Z79.899 Other long term (current) drug therapy; Z80.8 Family history of malignant neoplasm of other organs or systems; Z82.0 Family history of epilepsy and other diseases of the nervous system; Z82.49 Family history of ischemic heart disease and other diseases of the circulatory system; Z86.73 Personal history of transient ischemic attack (TIA), and cerebral infarction without residual deficits; Z91.041 Radiographic dye allergy status; Z91.013 Allergy to seafood; Z90.49 Acquired absence of other specified parts of digestive tract
CPT/HCPCS: 36415; 71045; 76705; 80053; 83690; 83735; 84100; 85025; 90935; 93005; 96374; 96375; 99291

== ENCOUNTER 2021-10-29 14:34 | Inpatient (IN) | payer MEDICARE, OTHER ==
[2021-10-29] MEDS ORDERED: NITROGLYCERIN SL TABS 0.4 MG TAB SUBLINGUAL STA ×3 (15:09→17:23)
--- NOTE | 2021-10-29 15:14 | ED ---
General Adult HPI - General Chief complaint: Chest Pain Stated complaint: hypertension Time Seen by Provider: 10/29/21 14:58 Source: EMS Mode of arrival: EMS Limitations: no limitations - History of Present Illness Initial comments: Dictation was produced using Venuu dictation software. please excuse any grammatical, word or spelling errors. Chief Complaint: 30-year-old female well-known to emergency department for multiple visitations for complications involving hypertension and missed dialysis. She presents to the emergency department today via EMS from dialysis center for elevated blood pressure and chest pain. History of Present Illness: Patient 30-year-old female she is well-known to emergency department. Patient has history of noncompliance with medications. Patient was at dialysis today where she was found to have elevated blood pressure. Patient also states that during dialysis she began experiencing chest pressure. States that the pain does not radiate. Not associated with nausea and diaphoresis. She normally gets dialysis for 4 hours however only received 3 hours. Patient goes to dialysis Monday was a Monday she states she's been compliant with her blood pressure medications and with her dialysis. Patient denies any shortness of breath. She allegedly had extremely elevated blood pressures at dialysis with systolics measuring between 240-260. The ROS documented in this emergency department record has been reviewed and confirmed by me. Those systems with pertinent positive or negative responses have been documented in the HPI. All other systems are other negative and/or noncontributory. PHYSICAL EXAM: General Impression: Alert and oriented x3, not in acute distress HEENT: Normocephalic atraumatic, extra-ocular movements intact, pupils equal and reactive to light bilaterally, mucous membranes moist. Cardiovascular: Heart regular rate and rhythm Chest: Able to complete full sentences, no retractions, no tachypnea, diffuse lung crackles Abdomen: abdomen soft, non-tender, non-distended, no organomegaly Musculoskeletal: Pulses present and equal in all extremities, no peripheral edema Motor: no focal deficits noted Neurological: CN II-XII grossly intact, no focal motor or sensory deficits noted Skin: Intact with no visualized rashes Psych: Normal affect and mood ED course: 30-year-old female presents emergency department for hypertension and chest pain. Patient was brought to the emergency department via EMS from dialysis center where she was discovered to have elevated blood pressures. Signs upon arrival shows temperature 100.7, blood pressure 260 08/28/2019. Rosita ent has symptoms of chest pressure. EKG appears to be baseline. She does have chronic elevations of STDs in her anterior precordial leads that are area representative early repolarization due to extensive hypertension. Patient's pulse oxygen level is low at 87%. She's not showing any signs of respiratory distress Patient placed on 2 L supplemental oxygen with improvement into the mid to high 90s. Patient given sublingual nitroglycerin with persistently elevated blood pressures. Patient given 2 more sublingual nitroglycerin. Case is discussed with therapeutic mentor, Dr. Chase who is familiar with the patient. He will be happy to consult on patient. He will call the dialysis center to confirm if patient got any dialysis or not. He will arrange, dialysis when needed. Patient placed on nitroglycerin drip per recommendation by Dr. Chase. Patient will be admitted to ICU for further care. Spoke with Dr. Rajan. An aspirin for elevated troponin and chest pain. EKG interpretation: Ventricular rate 76, sinus rhythm, CA interval 154, QS 12, QTc 465. No CA prolongation, no QTC prolongation, no ST or T-wave changes noted. EKG compared to 10/15/2021 showing no changes. Overall, this EKG is unremarkable - Related Data Home Medications Medication Instructions Recorded Confirmed Aspirin EC [Ecotrin Low Dose] 81 mg PO DAILY 04/03/21 10/29/21 Carvedilol [Coreg] 25 mg PO BID 04/03/21 10/29/21 Ergocalciferol (Vitamin D2) 1,250 mcg PO COPELAND 04/03/21 10/29/21 [Drisdol (50,000 Iu)] Isosorbide Mononitrate ER [Imdur] 30 mg PO HS 04/03/21 10/29/21 Escitalopram [Lexapro] 20 mg PO DAILY 04/17/21 10/29/21 rOPINIRole HCL [Requip] 0.5 mg PO HS 04/17/21 10/29/21 Melatonin 5 - 10 mg PO HS PRN 06/29/21 10/29/21 Insulin Glargine,Hum.rec.anlog 13 units SQ HS 09/21/21 10/29/21 [Lantus Solostar Pen] Insulin Lispro [humaLOG Kwikpen] See Protocol SQ ACHS 09/21/21 10/29/21 Previous Rx's Medication Instructions Recorded Acetaminophen Tab [Tylenol] 650 mg PO Q6HR PRN #30 tab 04/09/21 Glucagon Emergency Kit 1 mg IM ONCE PRN #1 kit 06/15/21 cloNIDine HCL [Catapres] 0.3 mg PO TID tab 08/07/21 Albuterol Inhaler [Ventolin Hfa 1 puff INHALATION RT-QID PRN 30 09/06/21 Inhaler] Days #8 gm Cyanocobalamin [Vitamin B-12] 1,000 mcg PO DAILY #60 tab 09/06/21 Atorvastatin [Lipitor] 40 mg PO DAILY 30 Days #30 tab 10/13/21 Calcium Acetate [PhosLo] 667 mg PO TID-W/MEALS 30 Days #90 10/13/21 tab NIFEdipine XL [Procardia XL] 120 mg PO DAILY 30 Days #60 tab 10/13/21 Aundmxnq-Vejiephgch-Riam Oint 1 applic TOPICAL BID #1 each 10/13/21 [Triple Antibiotic Ointment] lisinopriL [Zestril] 40 mg PO DAILY 30 Days #60 tab 10/13/21 Pantoprazole Sodium [Protonix] 20 mg PO BID #30 tab 10/15/21 Allergies Allergy/AdvReac Type Severity Reaction Status Date / Time Fish Containing Products Allergy Rash/Hives Verified 10/29/21 16:02 [Fish] iodine Allergy Anaphylaxis Verified 10/29/21 16:02 Review of Systems ROS Statement: Those systems with pertinent positive or pertinent negative responses have been documented in the HPI. ROS Other: All systems not noted in ROS Statement are negative. Past Medical History Past Medical History: CVA/TIA, Diabetes Mellitus, Dialysis, Eye Disorder, Hypertension, Renal Disease Additional Past Medical History / Comment(s): ESRD with hemodialysis M/W/F, IDDM type 1, DKA, neuropathy bilateral legs/feet, diabetic retinopathy/legally blind, RLS, gastritis, severe hypokalemia, fluid retention in abdomin/legs. History of Any Multi-Drug Resistant Organisms: None Reported Past Surgical History: Appendectomy, Section, Cholecystectomy Additional Past Surgical History / Comment(s): fistula left arm Past Anesthesia/Blood Transfusion Reactions: No Reported Reaction Past Psychological History: Anxiety, Depression Smoking Status: Never smoker Past Alcohol Use History: None Reported Past Drug Use History: None Reported - Past Family History Mother Family Medical History: Cancer, Hypertension Additional Family Medical History / Comment(s): Thyroid cancer, bipolar Father Family Medical History: Seizure Disorder Additional Family Medical History / Comment(s): Epilepsy General Exam Limitations: no limitations Course Vital Signs 10/29/21 10/29/21 10/29/21 14:39 14:47 15:05 Temperature 100.7 F H Pulse Rate 76 Respiratory 18 18 Rate Blood Pressure 264/120 O2 Sat by Pulse 90 L 87 L Oximetry 10/29/21 10/29/21 10/29/21 15:07 16:43 17:54 Temperature Pulse Rate Respiratory Rate Blood Pressure 260/128 250/120 O2 Sat by Pulse 97 Oximetry Medical Decision Making - Lab Data Result diagrams: 10/29/21 15:21 10/29/21 15:21 Lab Results 10/29/21 10/29/21 10/29/21 Range/Units 15:21 15:21 15:21 WBC 7.1 (3.8-10.6) k/uL RBC 3.52 L (3.80-5.40) m/uL Hgb 10.2 L (11.4-16.0) gm/dL Hct 30.1 L (34.0-46.0) % MCV 85.7 (80.0-100.0) fL MCH 29.0 (25.0-35.0) pg MCHC 33.8 (31.0-37.0) g/dL RDW 14.8 (11.5-15.5) % Plt Count 270 (150-450) k/uL MPV 8.5 Neutrophils % 77 % Lymphocytes % 17 % Monocytes % 3 % Eosinophils % 2 % Basophils % 1 % Neutrophils # 5.5 (1.3-7.7) k/uL Lymphocytes # 1.2 (1.0-4.8) k/uL Monocytes # 0.2 (0-1.0) k/uL Eosinophils # 0.1 (0-0.7) k/uL Basophils # 0.0 (0-0.2) k/uL PT 10.3 (9.0-12.0) sec INR 0.9 (<1.2) APTT 24.3 (22.0-30.0) sec Sodium 140 (137-145) mmol/L Potassium 3.7 (3.5-5.1) mmol/L Chloride 91 L (98-107) mmol/L Carbon Dioxide 37 H (22-30) mmol/L Anion Gap 12 mmol/L BUN 22 H (7-17) mg/dL Creatinine 3.04 H (0.52-1.04) mg/dL Est GFR (CKD-EPI)AfAm 23 (>60 ml/min/1.73 sqM) Est GFR (CKD-EPI)NonAf 20 (>60 ml/min/1.73 sqM) Glucose 98 (74-99) mg/dL POC Glucose (mg/dL) (75-99) mg/dL POC Glu Fish Roe Technician ID Calcium 9.8 (8.4-10.2) mg/dL Total Bilirubin 0.9 (0.2-1.3) mg/dL AST 43 H (14-36) U/L ALT 50 H (4-34) U/L Alkaline Phosphatase 194 H (38-126) U/L Troponin I (0.000-0.034) ng/mL NT-Pro-B Natriuret Pep pg/mL Total Protein 8.4 H (6.3-8.2) g/dL Albumin 4.8 (3.5-5.0) g/dL 10/29/21 10/29/21 10/29/21 Range/Units 15:21 15:21 15:52 WBC (3.8-10.6) k/uL RBC (3.80-5.40) m/uL Hgb (11.4-16.0) gm/dL Hct (34.0-46.0) % MCV (80.0-100.0) fL MCH (25.0-35.0) pg MCHC (31.0-37.0) g/dL RDW (11.5-15.5) % Plt Count (150-450) k/uL MPV Neutrophils % % Lymphocytes % % Monocytes % % Eosinophils % % Basophils % % Neutrophils # (1.3-7.7) k/uL Lymphocytes # (1.0-4.8) k/uL Monocytes # (0-1.0) k/uL Eosinophils # (0-0.7) k/uL Basophils # (0-0.2) k/uL PT (9.0-12.0) sec INR (<1.2) APTT (22.0-30.0) sec Sodium (137-145) mmol/L Potassium (3.5-5.1) mmol/L Chloride (98-107) mmol/L Carbon Dioxide (22-30) mmol/L Anion Gap mmol/L BUN (7-17) mg/dL Creatinine (0.52-1.04) mg/dL Est GFR (CKD-EPI)AfAm (>60 ml/min/1.73 sqM) Est GFR (CKD-EPI)NonAf (>60 ml/min/1.73 sqM) Glucose (74-99) mg/dL POC Glucose (mg/dL) 95 (75-99) mg/dL POC Glu Fish Roe Technician Jeanette Isaac Calcium (8.4-10.2) mg/dL Total Bilirubin (0.2-1.3) mg/dL AST (14-36) U/L ALT (4-34) U/L Alkaline Phosphatase (38-126) U/L Troponin I 0.316 H* (0.000-0.034) ng/mL NT-Pro-B Natriuret Pep [id number] pg/mL Total Protein (6.3-8.2) g/dL Albumin (3.5-5.0) g/dL Critical Care Time Critical Care Time: Yes Total Critical Care Time: 33 Disposition Clinical Impression: Hypertensive emergency Disposition: ADMITTED IP TO THIS [facility] Condition: Serious Decision Time: 17:36
--- NOTE | 2021-10-29 15:35 | XR ---
EXAMINATION TYPE: XR chest 1V portable DATE OF EXAM: 10/29/2021 COMPARISON: Chest x-ray of October 15, 2021 HISTORY: Hypertension and chest pain. TECHNIQUE: Single AP portable frontal upright view of the chest is obtained. FINDINGS: Cardiomegaly with bilateral mild increased opacities on current study. No pleural effusion or pneumothorax seen bilaterally. The osseous structures are intact. IMPRESSION: Cardiomegaly with mild central vascular congestion, correlate for CHF exacerbation or fl uid overload state.
[2021-10-29 15:44] LABS: Basophils % (A) 1 %; Eosinophils # (A) 0.1 k/uL (0-0.7); Eosinophils % (A) 2 %; HCT 30.1 % (34.0-46.0); HGB 10.2 gm/dL (11.4-16.0); Lymphocytes # (A) 1.2 k/uL (1.0-4.8); Lymphocytes % (A) 17 %; MCHC 33.8 g/dL (31.0-37.0); MCV 85.7 fL (80.0-100.0); Mean Platelet Volume 8.5; Monocytes # (A) 0.2 k/uL (0-1.0); Monocytes % (A) 3 %; Neutrophils # (A) 5.5 k/uL (1.3-7.7); Neutrophils % (A) 77 %; Platelet Count 270 k/uL (150-450); RBC 3.52 m/uL (3.80-5.40); RDW 14.8 % (11.5-15.5); WBC 7.1 k/uL (3.8-10.6)
[2021-10-29 15:53] LABS: INR 0.9 (<1.2); Partial Thromboplastin Time 24.3 sec (22.0-30.0); Prothrombin Time 10.3 sec (9.0-12.0)
[2021-10-29 15:54] LABS: Glucose,Whole Blood 95 mg/dL (75-99)
[2021-10-29 15:54] LABS: Albumin 4.8 g/dL (3.5-5.0); Calcium 9.8 mg/dL (8.4-10.2); Potassium 3.7 mmol/L (3.5-5.1); Total Bilirubin 0.9 mg/dL (0.2-1.3); Total Protein 8.4 g/dL (6.3-8.2)
[2021-10-29] MEDS ORDERED: ASPIRIN 81 MG PO STA (16:29)
[2021-10-29] MEDS ORDERED: cloNIDine HCL 0.1 MG TAB PO STA (17:07)
[2021-10-29] MEDS ORDERED: NITROGLYCERIN-D5W PMX 50 MG in DEXTROSE/WATER 1 250ML.BAG IV ONE (17:23)
[2021-10-29] MEDS ORDERED: NALOXONE 0.4 MG/ML 1 ML VIAL IV PRN (17:33)
[2021-10-29 18:52] LABS: Glucose,Whole Blood 78 mg/dL (75-99)
[2021-10-29] MEDS ORDERED: ACETAMINOPHEN TAB 325 MG TAB PO PRN (19:13)
[2021-10-29] MEDS ORDERED: ALBUTEROL HFA INHALER INHALATION PRN (19:13)
[2021-10-29] MEDS: HYDROcodone/APAP 5-325MG 1 EACH TAB PO PRN (19:41)
[2021-10-29] MEDS: CLEVIDIPINE BUTYRATE 25 MG in EMPTY BAG 1 BAG IV SCH ×3 (19:41→23:23)
[2021-10-29] MEDS: SODIUM CHLORIDE 0.9% 1,000 ML IV SCH (19:50)
[2021-10-29] MEDS: INSULIN ASPART (NovoLOG) 100 UNIT/ML VIAL SQ SCH (20:07)
[2021-10-29 20:08] LABS: Glucose,Whole Blood 84 mg/dL (75-99)
[2021-10-29] MEDS ORDERED: ISOSORBIDE MONONITRATE ER 30 MG TAB.ER.24H PO SCH (21:00)
[2021-10-29] MEDS: cloNIDine HCL 0.1 MG TAB PO SCH (21:00)
[2021-10-29] MEDS: carvediloL 12.5 MG TAB PO SCH (21:01)
[2021-10-29] MEDS: INSULIN DETEMIR (LEVEMIR) 100 UNIT/ML SYR SQ SCH (21:02)
[2021-10-30 01:49] LABS: Glucose,Whole Blood 118 mg/dL (75-99)
[2021-10-30 06:31] LABS: Glucose,Whole Blood 40 mg/dL (75-99)
[2021-10-30 06:42] LABS: Glucose,Whole Blood 45 mg/dL (75-99)
[2021-10-30] MEDS: INSULIN ASPART (NovoLOG) 100 UNIT/ML VIAL SQ SCH ×4 (06:48→21:02)
[2021-10-30] MEDS: PANTOPRAZOLE 40 MG TABLET PO SCH (06:51)
[2021-10-30] MEDS: CALCIUM ACETATE 667 MG TAB PO SCH ×3 (06:51→16:34)
[2021-10-30 07:07] LABS: Glucose,Whole Blood 106 mg/dL (75-99)
[2021-10-30] MEDS: carvediloL 12.5 MG TAB PO SCH ×2 (08:45→21:01)
[2021-10-30] MEDS: CYANOCOBALAMIN 500 MCG TAB PO SCH (08:45)
[2021-10-30] MEDS: cloNIDine HCL 0.1 MG TAB PO SCH ×3 (08:45→21:01)
[2021-10-30] MEDS: ATORVASTATIN 40 MG TAB PO SCH (08:45)
[2021-10-30] MEDS: ASPIRIN 81 MG PO SCH (08:45)
[2021-10-30] MEDS: ESCITALOPRAM 20 MG TAB PO SCH (08:46)
[2021-10-30] MEDS ORDERED: lisinopriL 20 MG TAB PO SCH (09:00)
--- NOTE | 2021-10-30 09:49 | P.CRDCN ---
History of Present Illness Consult date: 10/30/21 History of present illness: This is a 30-year-old female with history of diabetes mellitus, end-stage renal disease on dialysis, labile hypertension and also previous CVA/TIA is now admitted to the hospital with complaints of chest pain and uncontrolled hypertension. She was getting dialysis yesterday and apparently after 3 hours of dialysis, patient started complaining of chest pain. She claimed that she had pain in the chest which usually brought on by uncontrolled hypertension. Her blood pressure was high and she was brought in here and is being treated with IV Clevidipine along with the Catapres, Coreg and other medications. Patient claims that her chest pain has gotten better and she is free of any pain. She claimed that she has had this pain in the past associated with high blood pressures. No radiation of the pain. No nausea, vomiting, sweating or shortness of breath. Her troponin was about 0.316 and proBNP is elevated. EKG showed sinus rhythm with evidence of left ventricle hypertrophy and nonspecific ST-T changes. Chest x-ray showed evidence of pulmonary congestion. Overall patient seemed to be doing well now. We will continue current medical therapy. I'll add Nitropaste 1 inch every 8 hours continue with the dialysis. Follow the trend of the troponins get a limited echo. Further examination depend upon the clinical course and findings on the boat tests Review of Systems As per the chart Past Medical History Past Medical History: CVA/TIA, Diabetes Mellitus, Dialysis, Eye Disorder, Hypertension, Renal Disease Additional Past Medical History / Comment(s): ESRD with hemodialysis M/W/F, IDDM type 1, DKA, neuropathy bilateral legs/feet, diabetic retinopathy/legally blind, RLS, gastritis, severe hypokalemia, fluid retention in abdomin/legs. History of Any Multi-Drug Resistant Organisms: None Reported Past Surgical History: Appendectomy, Section, Cholecystectomy Additional Past Surgical History / Comment(s): fistula left arm Past Anesthesia/Blood Transfusion Reactions: No Reported Reaction Past Psychological History: Anxiety, Depression Smoking Status: Never smoker Past Alcohol Use History: None Reported Past Drug Use History: None Reported - Past Family History Mother Family Medical History: Cancer, Hypertension Additional Family Medical History / Comment(s): Thyroid cancer, bipolar Father Family Medical History: Seizure Disorder Additional Family Medical History / Comment(s): Epilepsy Medications and Allergies Home Medications Medication Instructions Recorded Confirmed Type Aspirin EC [Ecotrin Low Dose] 81 mg PO DAILY 04/03/21 10/29/21 History Carvedilol [Coreg] 25 mg PO BID 04/03/21 10/29/21 History Ergocalciferol (Vitamin D2) 1,250 mcg PO COPELAND 04/03/21 10/29/21 History [Drisdol (50,000 Iu)] Isosorbide Mononitrate ER [Imdur] 30 mg PO HS 04/03/21 10/29/21 History Acetaminophen Tab [Tylenol] 650 mg PO Q6HR PRN #30 tab 04/09/21 10/29/21 Rx Escitalopram [Lexapro] 20 mg PO DAILY 04/17/21 10/29/21 History rOPINIRole HCL [Requip] 0.5 mg PO HS 04/17/21 10/29/21 History Glucagon Emergency Kit 1 mg IM ONCE PRN #1 kit 06/15/21 10/29/21 Rx Melatonin 5 - 10 mg PO HS PRN 06/29/21 10/29/21 History cloNIDine HCL [Catapres] 0.3 mg PO TID tab 08/07/21 10/29/21 Rx Albuterol Inhaler [Ventolin Hfa 1 puff INHALATION RT-QID PRN 30 09/06/21 10/29/21 Rx Inhaler] Days #8 gm Cyanocobalamin [Vitamin B-12] 1,000 mcg PO DAILY #60 tab 09/06/21 10/29/21 Rx Insulin Glargine,Hum.rec.anlog 13 units SQ HS 09/21/21 10/29/21 History [Lantus Solostar Pen] Insulin Lispro [humaLOG Kwikpen] See Protocol SQ ACHS 09/21/21 10/29/21 History Atorvastatin [Lipitor] 40 mg PO DAILY 30 Days #30 tab 10/13/21 10/29/21 Rx Calcium Acetate [PhosLo] 667 mg PO TID-W/MEALS 30 Days #90 10/13/21 10/29/21 Rx tab NIFEdipine XL [Procardia XL] 120 mg PO DAILY 30 Days #60 tab 10/13/21 10/29/21 Rx Nzqrwrvn-Nwykoptxti-Xxkg Oint 1 applic TOPICAL BID #1 each 10/13/21 10/29/21 Rx [Triple Antibiotic Ointment] lisinopriL [Zestril] 40 mg PO DAILY 30 Days #60 tab 10/13/21 10/29/21 Rx Pantoprazole Sodium [Protonix] 20 mg PO BID #30 tab 10/15/21 10/29/21 Rx Allergies Allergy/AdvReac Type Severity Reaction Status Date / Time Fish Containing Products Allergy Rash/Hives Verified 10/29/21 16:02 [Fish] iodine Allergy Anaphylaxis Verified 10/29/21 16:02 Physical Exam Vitals: Vital Signs Temp Pulse Pulse Resp BP BP Pulse Ox 10/30/21 09:15 70 21 152/98 92 L 10/30/21 09:00 71 10 L 151/95 10/30/21 08:45 71 13 166/106 90 L 10/30/21 08:30 71 11 L 161/91 90 L 10/30/21 08:15 70 22 179/97 82 L 10/30/21 08:00 98.6 F 70 26 H 178/105 97 10/30/21 07:45 68 21 162/98 100 10/30/21 07:30 70 19 145/92 100 10/30/21 07:15 68 22 124/85 99 10/30/21 07:00 70 11 L 114/86 100 10/30/21 06:45 63 12 165/105 98 10/30/21 06:30 65 16 131/95 100 10/30/21 06:15 64 23 135/90 100 10/30/21 06:00 65 24 132/89 100 10/30/21 05:45 13 143/102 99 10/30/21 05:30 65 20 124/78 98 10/30/21 05:15 66 14 125/84 98 10/30/21 05:00 67 27 H 124/84 94 L 10/30/21 04:45 66 10 L 145/91 97 10/30/21 04:30 65 18 150/93 100 10/30/21 04:15 64 16 150/93 10/30/21 04:00 98.0 F 65 16 153/93 100 10/30/21 03:45 65 18 169/101 100 10/30/21 03:30 67 21 141/91 100 10/30/21 03:15 68 26 H 178/104 100 10/30/21 03:00 68 17 165/102 100 10/30/21 02:45 67 10 L 122/84 99 10/30/21 02:30 66 13 126/94 100 10/30/21 02:15 67 11 L 140/94 100 10/30/21 02:00 64 15 160/94 100 10/30/21 01:45 65 18 152/92 100 10/30/21 01:30 67 13 164/93 100 10/30/21 01:15 68 19 163/96 98 10/30/21 01:00 68 18 138/89 100 10/30/21 00:45 65 19 159/99 97 10/30/21 00:30 65 20 162/101 100 10/30/21 00:15 67 14 160/89 99 10/30/21 00:07 67 13 160/89 97 10/30/21 00:00 68 18 166/97 99 10/29/21 23:45 68 19 158/96 100 10/29/21 23:30 68 13 162/90 100 10/29/21 23:15 66 19 149/91 99 10/29/21 23:00 68 20 151/85 99 10/29/21 22:45 68 12 153/90 97 10/29/21 22:30 69 14 163/100 99 10/29/21 22:15 68 12 161/92 98 10/29/21 22:00 68 17 158/95 96 10/29/21 21:45 69 20 165/97 96 10/29/21 21:30 71 13 148/90 97 10/29/21 21:22 73 29 H 94 L 10/29/21 21:00 71 21 154/91 10/29/21 20:45 71 17 163/103 10/29/21 20:30 67 16 163/88 10/29/21 20:15 69 20 161/100 10/29/21 20:00 71 19 244/129 10/29/21 19:45 71 11 L 240/129 10/29/21 19:30 71 15 212/126 10/29/21 19:00 71 15 212/126 93 L 10/29/21 17:54 250/120 10/29/21 16:43 260/128 10/29/21 15:07 97 10/29/21 15:05 87 L 06/03/22 14:47 18 10/29/21 14:39 100.7 F H 76 18 264/120 90 L Intake and Output 10/29/21 10/30/21 10/30/21 22:59 06:59 14:59 Intake Total 157.500 22.199 250 Output Total 0 Balance 157.500 22.199 250 Intake: Intake, IV Titration 7.500 22.199 Amount Clevidipine Butyrate 25 7.500 22.199 mg In Empty Bag 1 bag @ 1 MG/HR 2 mls/hr IV .Q24H [facility] Rx#:[id number] Oral 150 250 Output: Urine 0 Other: # Voids 0 0 0 Weight 49.6 kg 50 kg GENERAL EXAM: Patient is alert and oriented and doesn't appear to be in any acute distress HEENT: Normocephalic. Normal reaction of pupils, equal size, normal range of extraocular motion. No erythema or exudates in the throat. NECK: No masses, no nuchal rigidity. CHEST: No chest wall deformity. LUNGS: Equal air entry with no crackles or wheeze. HEART: S1 and S2 normal with no audible mumurs or gallops. Regular rhythm, femorals equal on both sides.. ABDOMEN: No hepatosplenomegaly, normal bowel sounds, no guarding or rigidity. SKIN: No rashes CENTRAL NERVOUS SYSTEM: No focal deficits. EXTREMITIES: No cyanosis, clubbing or edema. Results 10/29/21 15:21 10/29/21 15:21 Cardiac Enzymes 10/29/21 10/29/21 Range/Units 15:21 15:21 AST 43 H (14-36) U/L Troponin I 0.316 H* (0.000-0.034) ng/mL Coagulation 10/29/21 Range/Units 15:21 PT 10.3 (9.0-12.0) sec APTT 24.3 (22.0-30.0) sec CBC 10/29/21 Range/Units 15:21 WBC 7.1 (3.8-10.6) k/uL RBC 3.52 L (3.80-5.40) m/uL Hgb 10.2 L (11.4-16.0) gm/dL Hct 30.1 L (34.0-46.0) % Plt Count 270 (150-450) k/uL Comprehensive Metabolic Panel 10/29/21 Range/Units 15:21 Sodium 140 (137-145) mmol/L Potassium 3.7 (3.5-5.1) mmol/L Chloride 91 L (98-107) mmol/L Carbon Dioxide 37 H (22-30) mmol/L BUN 22 H (7-17) mg/dL Creatinine 3.04 H (0.52-1.04) mg/dL Glucose 98 (74-99) mg/dL Calcium 9.8 (8.4-10.2) mg/dL AST 43 H (14-36) U/L ALT 50 H (4-34) U/L Alkaline Phosphatase 194 H (38-126) U/L Total Protein 8.4 H (6.3-8.2) g/dL Albumin 4.8 (3.5-5.0) g/dL Current Medications Generic Name Dose Route Start Last Admin Trade Name Freq PRN Reason Stop Dose Admin Acetaminophen 650 mg 10/29/21 19:13 Acetaminophen Tab 325 Mg Tab PO Q6HR PRN Fever and/ or Pain Hydrocodone Bitart/Acetaminophen 1 each 10/29/21 19:16 10/29/21 19:41 Hydrocodone/Apap 5-325mg 1 Each Tab PO 1 each Q6HR PRN Administration Pain Albuterol Sulfate 1 puff 10/29/21 19:13 Albuterol Hfa Inhaler INHALATION RT-QID PRN Shortness Of Breath Aspirin 81 mg 10/30/21 09:00 10/30/21 08:45 Aspirin 81 Mg PO 81 mg DAILY [facility] Administration Atorvastatin Calcium 40 mg 10/30/21 09:00 10/30/21 08:45 Atorvastatin 40 Mg Tab PO 40 mg DAILY [facility] Administration Calcium Acetate 667 mg 10/30/21 07:30 10/30/21 06:51 Calcium Acetate 667 Mg Tab PO 667 mg TID-W/MEALS [facility] Administration Carvedilol 25 mg 10/29/21 21:00 10/30/21 08:45 Carvedilol 12.5 Mg Tab PO 25 mg BID [facility] Administration Clonidine 0.3 mg 10/29/21 22:00 10/30/21 08:45 Clonidine Hcl 0.1 Mg Tab PO 0.3 mg TID [facility] Administration Cyanocobalamin 1,000 mcg 10/30/21 09:00 10/30/21 08:45 Cyanocobalamin 500 Mcg Tab PO 1,000 mcg DAILY [facility] Administration Ergocalciferol 1,250 mcg 10/31/21 09:00 Ergocalciferol 1,250 Mcg (50,000 Iu) Capsule PO COPELAND [facility] Escitalopram Oxalate 20 mg 10/30/21 09:00 10/30/21 08:46 Escitalopram 20 Mg Tab PO 20 mg DAILY [facility] Administration Sodium Chloride 1,000 mls @ 20 mls/hr 10/29/21 17:45 10/29/21 19:50 Saline 0.9% IV Not Given .Q24H [facility] Clevidipine 25 mg/ IV Solution 50 mls @ 2 mls/hr 10/29/21 19:15 10/30/21 03:00 IV 2 mg/hr .Q24H [facility] 4 mls/hr Titration Protocol 1 MG/HR Insulin Aspart 0 unit 10/29/21 21:00 10/30/21 06:48 Insulin Aspart (Novolog) 100 Unit/Ml Vial SQ Not Given ACHS [facility] Protocol Insulin Detemir 13 unit 10/29/21 21:00 10/29/21 21:02 Insulin Detemir (Levemir) 100 Unit/Ml Syr SQ 13 unit HS [facility] Administration Lisinopril 40 mg 10/30/21 09:00 10/30/21 08:45 Lisinopril 20 Mg Tab PO 40 mg DAILY [facility] Administration Melatonin 10 mg 10/29/21 19:13 Melatonin 5 Mg Tablet PO HS PRN Insomnia Naloxone HCl 0.2 mg 10/29/21 17:33 Naloxone 0.4 Mg/Ml 1 Ml Vial IV Q2M PRN Opioid Reversal Nifedipine 120 mg 10/30/21 09:00 10/30/21 08:46 Nifedipine Xl 60 Mg Tab.Er.24 PO 120 mg DAILY [facility] Administration Nitroglycerin 1 inch 10/30/21 16:00 Nitroglycerin Oint 1 Inch/Gm Packet TOPICAL Q8HR [facility] Pantoprazole Sodium 40 mg 10/30/21 07:30 10/30/21 06:51 Pantoprazole 40 Mg Tablet PO 40 mg DAILY@0730 [facility] Administration Ropinirole HCl 0.5 mg 10/29/21 21:00 10/29/21 21:01 Ropinirole Hcl 0.25 Mg Tab PO 0.5 mg HS [facility] Administration Intake and Output 10/29/21 10/30/21 10/30/21 22:59 06:59 14:59 Intake Total 157.500 22.199 250 Output Total 0 Balance 157.500 22.199 250 Intake: Intake, IV Titration 7.500 22.199 Amount Clevidipine Butyrate 25 7.500 22.199 mg In Empty Bag 1 bag @ 1 MG/HR 2 mls/hr IV .Q24H [facility] Rx#:[id number] Oral 150 250 Output: Urine 0 Other: # Voids 0 0 0 Weight 49.6 kg 50 kg 10/29/21 15:21 10/29/21 15:21 EKG Interpretations (text) Sinus rhythm with evidence of left ventricle hypertrophy Assessment and Plan (1) Hypertensive emergency Current Visit: Yes Status: Acute Code(s): I16.1 - HYPERTENSIVE EMERGENCY SNOMED Code(s): 146902802644826 (2) CKD (chronic kidney disease) Current Visit: No Status: Acute Code(s): N18.9 - CHRONIC KIDNEY DISEASE, UNSPECIFIED SNOMED Code(s): 146166947 (3) Chest pain Current Visit: No Status: Acute Code(s): R07.9 - CHEST PAIN, UNSPECIFIED SNOMED Code(s): 47894537 (4) Congestive heart failure Current Visit: No Status: Acute Code(s): I50.9 - HEART FAILURE, UNSPECIFIED SNOMED Code(s): 48577154 Plan: Continue current medical therapy. I will add Nitropaste 1 inch every 8 hours . Get echocardiogram. Follow the troponin trend. Nephrology follow-up. Further recommendation if the clinical course
[2021-10-30] MEDS: HYDROcodone/APAP 5-325MG 1 EACH TAB PO PRN (10:00)
--- NOTE | 2021-10-30 10:03 | P.NPCON ---
History of Present Illness - Reason for Consult end stage renal disease - History of Present Illness Reason for consultation: End-stage renal disease History of present illness: Patient is a 30-year-old female seen in consultation for end-stage renal disease. She is maintained on hemodialysis on Monday schedule. Patient denies missing any dialysis treatments. Patient states her blood sugars have been fairly well-controlled and blood pressure has also been controlled. However when she went to hemodialysis yesterday her blood pressure was high and was even higher while she was getting her dialysis treatment. Patient states her blood pressure was over 250 systolic and she was subsequently sent to the hospital. She received nitro drip and is now on Cleviprex. Denies chest pain or shortness of breath. No vomiting or diarrhea. Blood pressure this morning was 152/98. Hold antihypertensives have been resumed. Chest x-ray suggestive of fluid overload. Patient states she completed majority of her hemodialysis treatment yesterday. Patient has history of diastolic CHF and moderate to severe tricuspid regurgitation and pulmonary hypertension. She also has history of pericardial effusion. Patient has long-standing history of diabetes. Vital signs are stable. General: No acute distress. HEENT: Head exam is unremarkable. LUNGS: Breath sounds decreased. HEART: Rate and Rhythm are regular. ABDOMEN: Soft, no distention. EXTREMITITES: No edema. Past Medical History Past Medical History: CVA/TIA, Diabetes Mellitus, Dialysis, Eye Disorder, Hypertension, Renal Disease Additional Past Medical History / Comment(s): ESRD with hemodialysis M/W/F, IDDM type 1, DKA, neuropathy bilateral legs/feet, diabetic retinopathy/legally blind, RLS, gastritis, severe hypokalemia, fluid retention in abdomin/legs. History of Any Multi-Drug Resistant Organisms: None Reported Past Surgical History: Appendectomy, Section, Cholecystectomy Additional Past Surgical History / Comment(s): fistula left arm Past Anesthesia/Blood Transfusion Reactions: No Reported Reaction Past Psychological History: Anxiety, Depression Smoking Status: Never smoker Past Alcohol Use History: None Reported Past Drug Use History: None Reported - Past Family History Mother Family Medical History: Cancer, Hypertension Additional Family Medical History / Comment(s): Thyroid cancer, bipolar Father Family Medical History: Seizure Disorder Additional Family Medical History / Comment(s): Epilepsy Medications and Allergies Home Medications Medication Instructions Recorded Confirmed Type Aspirin EC [Ecotrin Low Dose] 81 mg PO DAILY 04/03/21 10/29/21 History Carvedilol [Coreg] 25 mg PO BID 04/03/21 10/29/21 History Ergocalciferol (Vitamin D2) 1,250 mcg PO COPELAND 04/03/21 10/29/21 History [Drisdol (50,000 Iu)] Isosorbide Mononitrate ER [Imdur] 30 mg PO HS 04/03/21 10/29/21 History Acetaminophen Tab [Tylenol] 650 mg PO Q6HR PRN #30 tab 04/09/21 10/29/21 Rx Escitalopram [Lexapro] 20 mg PO DAILY 04/17/21 10/29/21 History rOPINIRole HCL [Requip] 0.5 mg PO HS 04/17/21 10/29/21 History Glucagon Emergency Kit 1 mg IM ONCE PRN #1 kit 06/15/21 10/29/21 Rx Melatonin 5 - 10 mg PO HS PRN 06/29/21 10/29/21 History cloNIDine HCL [Catapres] 0.3 mg PO TID tab 08/07/21 10/29/21 Rx Albuterol Inhaler [Ventolin Hfa 1 puff INHALATION RT-QID PRN 30 09/06/21 10/29/21 Rx Inhaler] Days #8 gm Cyanocobalamin [Vitamin B-12] 1,000 mcg PO DAILY #60 tab 09/06/21 10/29/21 Rx Insulin Glargine,Hum.rec.anlog 13 units SQ HS 09/21/21 10/29/21 History [Lantus Solostar Pen] Insulin Lispro [humaLOG Kwikpen] See Protocol SQ ACHS 09/21/21 10/29/21 History Atorvastatin [Lipitor] 40 mg PO DAILY 30 Days #30 tab 10/13/21 10/29/21 Rx Calcium Acetate [PhosLo] 667 mg PO TID-W/MEALS 30 Days #90 10/13/21 10/29/21 Rx tab NIFEdipine XL [Procardia XL] 120 mg PO DAILY 30 Days #60 tab 10/13/21 10/29/21 Rx Mkuzkkrn-Vjjtspzuwp-Oait Oint 1 applic TOPICAL BID #1 each 10/13/21 10/29/21 Rx [Triple Antibiotic Ointment] lisinopriL [Zestril] 40 mg PO DAILY 30 Days #60 tab 10/13/21 10/29/21 Rx Pantoprazole Sodium [Protonix] 20 mg PO BID #30 tab 10/15/21 10/29/21 Rx Allergies Allergy/AdvReac Type Severity Reaction Status Date / Time Fish Containing Products Allergy Rash/Hives Verified 10/29/21 16:02 [Fish] iodine Allergy Anaphylaxis Verified 10/29/21 16:02 Physical Exam Vitals: Vital Signs Temp Pulse Pulse Resp BP BP Pulse Ox 10/30/21 09:15 70 21 152/98 92 L 10/30/21 09:00 71 10 L 151/95 10/30/21 08:45 71 13 166/106 90 L 10/30/21 08:30 71 11 L 161/91 90 L 10/30/21 08:15 70 22 179/97 82 L 10/30/21 08:00 98.6 F 70 26 H 178/105 97 10/30/21 07:45 68 21 162/98 100 10/30/21 07:30 70 19 145/92 100 10/30/21 07:15 68 22 124/85 99 10/30/21 07:00 70 11 L 114/86 100 10/30/21 06:45 63 12 165/105 98 10/30/21 06:30 65 16 131/95 100 10/30/21 06:15 64 23 135/90 100 10/30/21 06:00 65 24 132/89 100 10/30/21 05:45 13 143/102 99 10/30/21 05:30 65 20 124/78 98 10/30/21 05:15 66 14 125/84 98 10/30/21 05:00 67 27 H 124/84 94 L 10/30/21 04:45 66 10 L 145/91 97 10/30/21 04:30 65 18 150/93 100 10/30/21 04:15 64 16 150/93 10/30/21 04:00 98.0 F 65 16 153/93 100 10/30/21 03:45 65 18 169/101 100 10/30/21 03:30 67 21 141/91 100 10/30/21 03:15 68 26 H 178/104 100 10/30/21 03:00 68 17 165/102 100 10/30/21 02:45 67 10 L 122/84 99 10/30/21 02:30 66 13 126/94 100 10/30/21 02:15 67 11 L 140/94 100 10/30/21 02:00 64 15 160/94 100 10/30/21 01:45 65 18 152/92 100 10/30/21 01:30 67 13 164/93 100 10/30/21 01:15 68 19 163/96 98 10/30/21 01:00 68 18 138/89 100 10/30/21 00:45 65 19 159/99 97 10/30/21 00:30 65 20 162/101 100 10/30/21 00:15 67 14 160/89 99 10/30/21 00:07 67 13 160/89 97 10/30/21 00:00 68 18 166/97 99 10/29/21 23:45 68 19 158/96 100 10/29/21 23:30 68 13 162/90 100 10/29/21 23:15 66 19 149/91 99 10/29/21 23:00 68 20 151/85 99 10/29/21 22:45 68 12 153/90 97 10/29/21 22:30 69 14 163/100 99 10/29/21 22:15 68 12 161/92 98 10/29/21 22:00 68 17 158/95 96 10/29/21 21:45 69 20 165/97 96 10/29/21 21:30 71 13 148/90 97 10/29/21 21:22 73 29 H 94 L 10/29/21 21:00 71 21 154/91 10/29/21 20:45 71 17 163/103 10/29/21 20:30 67 16 163/88 10/29/21 20:15 69 20 161/100 10/29/21 20:00 71 19 244/129 10/29/21 19:45 71 11 L 240/129 10/29/21 19:30 71 15 212/126 10/29/21 19:00 71 15 212/126 93 L 10/29/21 17:54 250/120 10/29/21 16:43 260/128 10/29/21 15:07 97 10/29/21 15:05 87 L 10/29/21 14:47 18 10/29/21 14:39 100.7 F H 76 18 264/120 90 L Intake and Output 10/29/21 10/30/21 10/30/21 22:59 06:59 14:59 Intake Total 157.500 22.199 250 Output Total 0 Balance 157.500 22.199 250 Intake: Intake, IV Titration 7.500 22.199 Amount Clevidipine Butyrate 25 7.500 22.199 mg In Empty Bag 1 bag @ 1 MG/HR 2 mls/hr IV .Q24H [facility] Rx#:[id number] Oral 150 250 Output: Urine 0 Other: # Voids 0 0 0 Weight 49.6 kg 50 kg Results - Lab Results Most recent lab results Calcium 9.8 mg/dL (8.4-10.2) 10/29/21 15:21 10/29/21 15:21 10/29/21 15:21 Assessment and Plan Plan: Assessment: 1. End-stage renal disease maintained on hemodialysis on Monday schedule. 2. Hypertensive emergency with volume overload. 3. Acute on chronic diastolic CHF with moderate to severe tricuspid regurgitation and pulmonary hypertension. 4. History of pericardial effusion. 5. Chronic hyperkalemia secondary to chronic kidney disease and hyperglycemia. 6. Diabetes mellitus. 7. 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 Plan: Hemodialysis today with goal 3-4 L ultrafiltration. Home antihypertensives resumed. Avoid hydralazine and minoxidil due to pericardial effusion. Avoid CHANDA inhibitor or angiotensin receptor blockers due to chronic hyperkalemia. Wean Cleviprex. Patient has been strongly advised to be compliant with her home medications and dialysis treatments outpatient. Life-threatening risks of noncompliance, including , have been discussed with the patient with times. Thank you for the consultation. I will continue to follow the patient with you during her hospital stay.
[2021-10-30] MEDS: diphenhydrAMINE 50 MG/ML 1 ML VIAL IVP PRN ×3 (10:17→19:48)
--- NOTE | 2021-10-30 11:10 | P.CNPUL ---
History of Present Illness Consult date: 10/30/21 Requesting physician: Roque Buckner Reason for consult: other (Critical care management) Chief complaint: Hypertension History of present illness: This is a 30-year-old female patient with a known history of type 1 diabetes mellitus, diabetic retinopathy legally blind, diabetic neuropathy, end-stage renal disease on hemodialysis Monday, hypertension, previous CVA/TIA, pericardial effusion. She has had multiple admissions to the hospital. She was brought in again yesterday with concerns regarding high blood pressure and chest discomfort. Presenting blood pressure was 260/128. She was initiated on clever proximal at 2 mg per hour. She is seen today in consultation in the intensive care unit. She is awake and alert in no acute distress. Maintaining good O2 saturations in the 90s on room air. She states she has been compliant with her dialysis on Monday was actually at dialysis when her blood pressure is noted to be significantly elevated. Current blood pressure 127/83 with a mean of 97. Chest x-ray revealed cardiomegaly with mild central vascular congestion. No chest discomfort. No worsening shortness of breath. No cough or congestion. Count 7.1. Hemoglobin 10.2. Platelets 270. Sodium 140. Potassium 3.7. Chloride 91. Bicarb 37. BUN 22. Creatinine 3.04. Blood glucose 98. AST 43. ALT 50. Troponin 0.316. ProBNP 142,000. She remains on clever proximal at 2 mg per hour. She is also on Coreg, Catapres, Procardia, Nitro-Bid ointment. Review of Systems REVIEW OF SYSTEMS: CONSTITUTIONAL: Denies any recent significant weight loss or weight gain. EYES: Denies change in vision. EARS, NOSE, MOUTH, THROAT: Denies headaches, denies sore throat. CARDIOVASCULAR: Positive for chest pain, no palpitations or syncopal episodes. RESPIRATORY: Denies shortness of breath, cough, congestion or hemoptysis. GASTROINTESTINAL: Denies change in appetite, denies abdominal pain GENITOURINARY: Denies hematuria, denies infections. MUSKULOSKELETAL: Denies pain, denies swelling. INTEGUMENTARY: Denies rash, denies eczema. NEUROLOGICAL: Denies recent memory loss, no recent seizure activity. PSYCHIATRIC: Denies anxiety, denies depression. HEMATOLOGIC/LYMPHATIC: Denies anemia, denies enlarged lymph nodes. Past Medical History Past Medical History: CVA/TIA, Diabetes Mellitus, Dialysis, Eye Disorder, Hypertension, Renal Disease Additional Past Medical History / Comment(s): ESRD with hemodialysis M/W/F, IDDM type 1, DKA, neuropathy bilateral legs/feet, diabetic retinopathy/legally blind, RLS, gastritis, severe hypokalemia, fluid retention in abdomin/legs. History of Any Multi-Drug Resistant Organisms: None Reported Past Surgical History: Appendectomy, Section, Cholecystectomy Additional Past Surgical History / Comment(s): fistula left arm Past Anesthesia/Blood Transfusion Reactions: No Reported Reaction Past Psychological History: Anxiety, Depression Smoking Status: Never smoker Past Alcohol Use History: None Reported Past Drug Use History: None Reported - Past Family History Mother Family Medical History: Cancer, Hypertension Additional Family Medical History / Comment(s): Thyroid cancer, bipolar Father Family Medical History: Seizure Disorder Additional Family Medical History / Comment(s): Epilepsy Medications and Allergies Home Medications Medication Instructions Recorded Confirmed Type Aspirin EC [Ecotrin Low Dose] 81 mg PO DAILY 04/03/21 10/29/21 History Carvedilol [Coreg] 25 mg PO BID 04/03/21 10/29/21 History Ergocalciferol (Vitamin D2) 1,250 mcg PO COPELAND 04/03/21 10/29/21 History [Drisdol (50,000 Iu)] Isosorbide Mononitrate ER [Imdur] 30 mg PO HS 04/03/21 10/29/21 History Acetaminophen Tab [Tylenol] 650 mg PO Q6HR PRN #30 tab 04/09/21 10/29/21 Rx Escitalopram [Lexapro] 20 mg PO DAILY 04/17/21 10/29/21 History rOPINIRole HCL [Requip] 0.5 mg PO HS 04/17/21 10/29/21 History Glucagon Emergency Kit 1 mg IM ONCE PRN #1 kit 06/15/21 10/29/21 Rx Melatonin 5 - 10 mg PO HS PRN 06/29/21 10/29/21 History cloNIDine HCL [Catapres] 0.3 mg PO TID tab 08/07/21 10/29/21 Rx Albuterol Inhaler [Ventolin Hfa 1 puff INHALATION RT-QID PRN 30 09/06/21 10/29/21 Rx Inhaler] Days #8 gm Cyanocobalamin [Vitamin B-12] 1,000 mcg PO DAILY #60 tab 09/06/21 10/29/21 Rx Insulin Glargine,Hum.rec.anlog 13 units SQ HS 09/21/21 10/29/21 History [Lantus Solostar Pen] Insulin Lispro [humaLOG Kwikpen] See Protocol SQ ACHS 09/21/21 10/29/21 History Atorvastatin [Lipitor] 40 mg PO DAILY 30 Days #30 tab 10/13/21 10/29/21 Rx Calcium Acetate [PhosLo] 667 mg PO TID-W/MEALS 30 Days #90 10/13/21 10/29/21 Rx tab NIFEdipine XL [Procardia XL] 120 mg PO DAILY 30 Days #60 tab 10/13/21 10/29/21 Rx Kfbvlpjf-Fcdgjymnha-Jgzj Oint 1 applic TOPICAL BID #1 each 10/13/21 10/29/21 Rx [Triple Antibiotic Ointment] lisinopriL [Zestril] 40 mg PO DAILY 30 Days #60 tab 10/13/21 10/29/21 Rx Pantoprazole Sodium [Protonix] 20 mg PO BID #30 tab 10/15/21 10/29/21 Rx Allergies Allergy/AdvReac Type Severity Reaction Status Date / Time Fish Containing Products Allergy Rash/Hives Verified 10/29/21 16:02 [Fish] iodine Allergy Anaphylaxis Verified 10/29/21 16:02 Physical Exam Vitals: Vital Signs Temp Pulse Pulse Resp BP BP Pulse Ox 10/30/21 10:15 72 29 H 127/83 94 L 10/30/21 10:00 71 12 233/118 92 L 10/30/21 09:45 72 21 220/112 90 L 10/30/21 09:30 71 23 199/106 91 L 10/30/21 09:15 70 21 152/98 92 L 10/30/21 09:00 71 10 L 151/95 10/30/21 08:45 71 13 166/106 90 L 10/30/21 08:30 71 11 L 161/91 90 L 10/30/21 08:15 70 22 179/97 82 L 10/30/21 08:00 98.6 F 70 26 H 178/105 97 10/30/21 07:45 68 21 162/98 100 06/04/22 07:30 70 19 145/92 100 10/30/21 07:15 68 22 124/85 99 10/30/21 07:00 70 11 L 114/86 100 10/30/21 06:45 63 12 165/105 98 10/30/21 06:30 65 16 131/95 100 10/30/21 06:15 64 23 135/90 100 10/30/21 06:00 65 24 132/89 100 10/30/21 05:45 13 143/102 99 10/30/21 05:30 65 20 124/78 98 10/30/21 05:15 66 14 125/84 98 10/30/21 05:00 67 27 H 124/84 94 L 10/30/21 04:45 66 10 L 145/91 97 10/30/21 04:30 65 18 150/93 100 10/30/21 04:15 64 16 150/93 10/30/21 04:00 98.0 F 65 16 153/93 100 10/30/21 03:45 65 18 169/101 100 10/30/21 03:30 67 21 141/91 100 10/30/21 03:15 68 26 H 178/104 100 10/30/21 03:00 68 17 165/102 100 10/30/21 02:45 67 10 L 122/84 99 10/30/21 02:30 66 13 126/94 100 10/30/21 02:15 67 11 L 140/94 100 10/30/21 02:00 64 15 160/94 100 10/30/21 01:45 65 18 152/92 100 10/30/21 01:30 67 13 164/93 100 10/30/21 01:15 68 19 163/96 98 10/30/21 01:00 68 18 138/89 100 10/30/21 00:45 65 19 159/99 97 10/30/21 00:30 65 20 162/101 100 10/30/21 00:15 67 14 160/89 99 10/30/21 00:07 67 13 160/89 97 10/30/21 00:00 68 18 166/97 99 10/29/21 23:45 68 19 158/96 100 10/29/21 23:30 68 13 162/90 100 10/29/21 23:15 66 19 149/91 99 06/03/22 23:00 68 20 151/85 99 10/29/21 22:45 68 12 153/90 97 10/29/21 22:30 69 14 163/100 99 10/29/21 22:15 68 12 161/92 98 10/29/21 22:00 68 17 158/95 96 10/29/21 21:45 69 20 165/97 96 10/29/21 21:30 71 13 148/90 97 10/29/21 21:22 73 29 H 94 L 10/29/21 21:00 71 21 154/91 10/29/21 20:45 71 17 163/103 10/29/21 20:30 67 16 163/88 10/29/21 20:15 69 20 161/100 10/29/21 20:00 71 19 244/129 10/29/21 19:45 71 11 L 240/129 10/29/21 19:30 71 15 212/126 10/29/21 19:00 71 15 212/126 93 L 10/29/21 17:54 250/120 10/29/21 16:43 260/128 10/29/21 15:07 97 10/29/21 15:05 87 L 10/29/21 14:47 18 10/29/21 14:39 100.7 F H 76 18 264/120 90 L Intake and Output 10/29/21 10/30/21 10/30/21 22:59 06:59 14:59 Intake Total 157.500 22.199 485.934 Output Total 0 Balance 157.500 22.199 485.934 Intake: Intake, IV Titration 7.500 22.199 35.934 Amount Clevidipine Butyrate 25 7.500 22.199 35.934 mg In Empty Bag 1 bag @ 1 MG/HR 2 mls/hr IV .Q24H [facility] Rx#:[id number] Oral 150 450 Output: Urine 0 Other: # Voids 0 0 0 Weight 49.6 kg 50 kg 50 kg GENERAL EXAM: Alert, pleasant 30-year-old female, on room air, comfortable in no apparent distress. HEAD: Normocephalic. EYES: Normal reaction of pupils, equal size. NOSE: Clear with pink turbinates. THROAT: No erythema or exudates. NECK: No masses, no JVD. CHEST: No chest wall deformity. LUNGS: Equal air entry with no crackles, wheeze, rhonchi or dullness. CVS: S1 and S2 normal with no audible murmur, regular rhythm. ABDOMEN: No hepatosplenomegaly, normal bowel sounds, no guarding or rigidity. SPINE: No scoliosis or deformity SKIN: No rashes CENTRAL NERVOUS SYSTEM: No focal deficits, tone is normal in all 4 extremities. EXTREMITIES: Left upper extremity AV fistula. There is no peripheral edema. No clubbing, no cyanosis. Peripheral pulses are intact.. Results - Laboratory Findings CBC and BMP: 10/29/21 15:21 10/29/21 15:21 PT/INR, D-dimer PT 10.3 sec (9.0-12.0) 10/29/21 15:21 INR 0.9 (<1.2) 10/29/21 15:21 Abnormal lab findings: Abnormal Labs 10/29/21 10/29/21 10/29/21 15:21 15:21 15:21 RBC 3.52 L Hgb 10.2 L Hct 30.1 L Chloride 91 L Carbon Dioxide 37 H BUN 22 H Creatinine 3.04 H POC Glucose (mg/dL) AST 43 H ALT 50 H Alkaline Phosphatase 194 H Troponin I 0.316 H* Total Protein 8.4 H 10/30/21 10/30/21 10/30/21 01:47 06:30 06:40 RBC Hgb Hct Chloride Carbon Dioxide BUN Creatinine POC Glucose (mg/dL) 118 H 40 L 45 L AST ALT Alkaline Phosphatase Troponin I Total Protein 10/30/21 07:05 RBC Hgb Hct Chloride Carbon Dioxide BUN Creatinine POC Glucose (mg/dL) 106 H AST ALT Alkaline Phosphatase Troponin I Total Protein Assessment and Plan Assessment: 1 Hypertensive emergency with subsequent chest discomfort 2 Mild troponin leak secondary to above 3 Acute pulmonary edema secondary to hypertensive emergency 4 History of previous hypertensive emergency requiring a nitroglycerin drip 5 End-stage renal disease to receive hemodialysis on Monday, unclear if any missed treatments 6 Acute hyponatremia 7 Anion gap metabolic acidosis 8 Chronic anemia 9 Recent hospitalization for hypertensive emergency, missed dialysis, discharged on 09/23/2021 10 Recent moderate circumferential pericardial effusion 10 Recent hospitalization for bilateral pneumonia, discharged on 09/06/2021 with Avelox and doxycycline 11 History of CVA/TIA 12 History of COVID-19 infection in May 2021 Plan: The patient was seen and evaluated Chest x-ray, labs and medications reviewed Remain on a clevidipine drip Blood pressure under better control No chest pain currently Continue to wean the clevidipine Initiate antihypertensive We will continue to follow and make further recommendations based on her clinical status I have personally seen and examined the patient, performed the documentation and the assessment and plan as written. Number of minutes spent on the visit: 20.
[2021-10-30 11:32] LABS: Glucose,Whole Blood 269 mg/dL (75-99)
--- NOTE | 2021-10-30 15:12 | HP ---
HISTORY AND PHYSICAL CHIEF COMPLAINT: Chest pain. HISTORY OF PRESENT ILLNESS: This is another admission for this 30-year-old white female who is apparently a noncompliant patient and has had a history of hypertension which has resulted in stage 5 CKD on dialysis. She misses dialysis frequently. She went for dialysis today and started to complain of chest pain. Blood pressure was reported around 260 systolically and she was sent to the emergency room. In the emergency room she had a blood pressure of 264/120 with a pulse 76. Temperature was 100.7. Laboratory studies included a white count of 7100 and a hemoglobin of 10.2. Potassium was 3.7. Sodium was 141. Creatinine was 3.04. BNP was 142,000. She was admitted as a hypertensive emergency. REVIEW OF SYSTEMS: Difficult to obtain due to her discomfort. She was having a slight headache, but no focal neurologic deficits, problems with vision or hearing, chest pain, shortness of breath, hemoptysis, abdominal pain, nausea, vomiting, diarrhea, melena, etc. Past medical history, family history, and personal and social histories reveal that she is ALLERGIC TO IODINE. When she she takes her medication, she is on: 1. Aspirin 81 mg a day. 2. Carvedilol 25 mg b.i.d. 3. Vitamin D. 4. Isosorbide mononitrate 30 mg. 5. Lexapro 20 mg. 6. Ropinirole 0.5 at bedtime. 7. Lantus 13 units at night. 8. Humalog according to scale. 9. Tylenol. 10.Clonidine 0.3 t.i.d. 11.Albuterol HFA. 12.Lipitor 40 mg once a day. 13.PhosLo 667 mg t.i.d. 14.Procardia 120 mg once a day. 15.Lisinopril 40 mg once a day. 16.Protonix 20 mg b.i.d. The remainder of her history is unremarkable. PHYSICAL EXAMINATION: Blood pressure is 250/120, respirations of 18, and pulse is 82. In general she appeared to be small, slender and somewhat lethargic. Head, ears, eyes, nose, mouth and throat were unremarkable. Chest was clear. Cardiac exam demonstrated sinus rhythm and there were no murmurs or extra sounds. The abdomen was soft and nontender without masses. Extremities were normal. IMPRESSION: 1. Chest pain. 2. Malignant hypertension. 3. Stage 5 chronic kidney disease, on dialysis. 4. Insulin-dependent diabetes mellitus. PLAN: ICU management with consult is to Pulmonology, Nephrology and Cardiology. MMAUGUSTOL / IJN: [id number] /
--- NOTE | 2021-10-30 15:21 | PN ---
PROGRESS NOTE DATE OF SERVICE: 10/30/2021 CHIEF COMPLAINT: Malignant hypertension and renal failure. HISTORY OF PRESENT ILLNESS: This lady is improved. After her dialysis was started, her blood pressure dropped to normal. She denies any headaches, focal neurologic deficits, chest pain, etc. PHYSICAL EXAMINATION: Her chest is clear. Cardiac exam is normal. Abdomen is soft, nontender. Extremities are normal. IMPRESSION: 1. Malignant hypertension. 2. Stage 5 chronic kidney disease. 3. Insulin-dependent diabetes mellitus. 4. Noncompliant patient. PLAN: Go ahead with dialysis and continue to monitor her vital signs and move out of ICU once she is stable. MMODL / IJN: [id number] /
[2021-10-30 16:27] LABS: Glucose,Whole Blood 260 mg/dL (75-99)
[2021-10-30] MEDS: NITROGLYCERIN OINT 1 INCH/GM PACKET TOPICAL SCH ×2 (16:27→23:26)
[2021-10-30 20:57] LABS: Glucose,Whole Blood 516 mg/dL (75-99)
[2021-10-30 20:57] LABS: Glucose,Whole Blood 498 mg/dL (75-99)
[2021-10-30] MEDS: MELATONIN 5 MG TABLET PO PRN (21:01)
[2021-10-30] MEDS: INSULIN DETEMIR (LEVEMIR) 100 UNIT/ML SYR SQ SCH (21:02)
[2021-10-30 22:00] LABS: Glucose,Whole Blood 541 mg/dL (75-99)
[2021-10-30] MEDS ORDERED: INSULIN ASPART (NovoLOG) 100 UNIT/ML VIAL SQ ONE (22:23)
[2021-10-30] MEDS ORDERED: INSULIN DETEMIR (LEVEMIR) 100 UNIT/ML SYR SQ ONE (22:26)
[2021-10-30 22:43] LABS: Glucose,Whole Blood 427 mg/dL (75-99)
[2021-10-30] MEDS: CLEVIDIPINE BUTYRATE 25 MG in EMPTY BAG 1 BAG IV SCH (23:27)
[2021-10-31 02:10] LABS: Glucose,Whole Blood 172 mg/dL (75-99)
[2021-10-31 06:47] LABS: Basophils % (A) 1 %; Eosinophils # (A) 0.4 k/uL (0-0.7); Eosinophils % (A) 6 %; HCT 24.7 % (34.0-46.0); Lymphocytes # (A) 1.2 k/uL (1.0-4.8); Lymphocytes % (A) 21 %; MCH 30.2 pg (25.0-35.0); MCHC 34.6 g/dL (31.0-37.0); MCV 87.2 fL (80.0-100.0); Mean Platelet Volume 8.8; Monocytes # (A) 0.3 k/uL (0-1.0); Monocytes % (A) 5 %; Neutrophils # (A) 3.6 k/uL (1.3-7.7); Neutrophils % (A) 66 %; Platelet Count 276 k/uL (150-450); Poikilocytosis Slight; RBC 2.83 m/uL (3.80-5.40); RDW 15.8 % (11.5-15.5); WBC 5.5 k/uL (3.8-10.6)
[2021-10-31 06:49] LABS: Glucose,Whole Blood 34 mg/dL (75-99)
[2021-10-31] MEDS ORDERED: DEXTROSE 50% SYRINGE 50 ML IVP ONE (06:50)
[2021-10-31] MEDS: INSULIN DETEMIR (LEVEMIR) 100 UNIT/ML SYR SQ SCH ×2 (06:51→22:08)
[2021-10-31] MEDS: INSULIN ASPART (NovoLOG) 100 UNIT/ML VIAL SQ SCH ×7 (06:52→21:30)
[2021-10-31] MEDS: CALCIUM ACETATE 667 MG TAB PO SCH ×3 (06:52→17:59)
[2021-10-31] MEDS: PANTOPRAZOLE 40 MG TABLET PO SCH (06:52)
[2021-10-31 06:58] LABS: Calcium 8.9 mg/dL (8.4-10.2); Potassium 4.3 mmol/L (3.5-5.1)
[2021-10-31 07:05] LABS: HGB 8.5 gm/dL (11.4-16.0)
[2021-10-31 07:06] LABS: Glucose,Whole Blood 135 mg/dL (75-99)
[2021-10-31] MEDS: SODIUM CHLORIDE 0.9% 1,000 ML IV SCH ×2 (07:23→22:08)
[2021-10-31] MEDS ORDERED: INSULIN ASPART (NovoLOG) 100 UNIT/ML VIAL SQ SCH (07:30)
[2021-10-31] MEDS ORDERED: carvediloL 6.25 MG TAB PO SCH (09:00)
--- NOTE | 2021-10-31 09:10 | P.PN ---
Subjective Patient is seen in follow-up for end-stage renal disease. Tolerated dialysis well yesterday with 3 L ultrafiltration. Still on Cleviprex. Blood pressure in the systolic 130s. Denies chest pain or shortness of breath. Vital signs are stable. General: Awake. No acute distress. HEENT: Head exam is unremarkable. LUNGS: Breath sounds decreased. HEART: Rate and Rhythm are regular. ABDOMEN: Soft, no distention. EXTREMITITES: No edema. Objective - Vital Signs Vital signs: Vital Signs Temp 98.2 F 10/31/21 04:00 Pulse 68 10/31/21 07:00 Resp 12 10/31/21 07:00 BP 170/99 10/31/21 07:00 Pulse Ox 99 10/31/21 07:00 FiO2 Intake & Output 10/30/21 10/31/21 10/31/21 18:59 06:59 18:59 Intake Total 1485.934 480 Output Total 3000 0 Balance -1514.066 480 Weight 50 kg 54.1 kg Intake: Intake, IV Titration 35.934 0 Amount Clevidipine Butyrate 25 35.934 0 mg In Empty Bag 1 bag @ 1 MG/HR 2 mls/hr IV .Q24H [facility] Rx#:[id number] Oral 1450 480 Output: Urine 0 0 Hemodialysis 3000 Other: # Voids 0 - Labs CBC & Chem 7: 10/31/21 05:44 10/31/21 05:44 Labs: Abnormal Lab Results - Last 24 Hours (Table) 10/30/21 10/30/21 10/30/21 Range/Units 11:30 16:26 20:54 RBC (3.80-5.40) m/uL Hgb (11.4-16.0) gm/dL Hct (34.0-46.0) % RDW (11.5-15.5) % Chloride (98-107) mmol/L BUN (7-17) mg/dL Creatinine (0.52-1.04) mg/dL Glucose (74-99) mg/dL POC Glucose (mg/dL) 269 H 260 H 498 H (75-99) mg/dL 10/30/21 10/30/21 10/30/21 Range/Units 20:55 21:58 22:41 RBC (3.80-5.40) m/uL Hgb (11.4-16.0) gm/dL Hct (34.0-46.0) % RDW (11.5-15.5) % Chloride (98-107) mmol/L BUN (7-17) mg/dL Creatinine (0.52-1.04) mg/dL Glucose (74-99) mg/dL POC Glucose (mg/dL) 516 H 541 H 427 H (75-99) mg/dL 10/31/21 10/31/21 10/31/21 Range/Units 02:08 05:44 05:44 RBC 2.83 L (3.80-5.40) m/uL Hgb 8.5 L D (11.4-16.0) gm/dL Hct 24.7 L (34.0-46.0) % RDW 15.8 H (11.5-15.5) % Chloride 97 L (98-107) mmol/L BUN 35 H (7-17) mg/dL Creatinine 4.86 H (0.52-1.04) mg/dL Glucose 59 L (74-99) mg/dL POC Glucose (mg/dL) 172 H (75-99) mg/dL 10/31/21 10/31/21 Range/Units 06:48 07:05 RBC (3.80-5.40) m/uL Hgb (11.4-16.0) gm/dL Hct (34.0-46.0) % RDW (11.5-15.5) % Chloride (98-107) mmol/L BUN (7-17) mg/dL Creatinine (0.52-1.04) mg/dL Glucose (74-99) mg/dL POC Glucose (mg/dL) 34 L 135 H (75-99) mg/dL Assessment and Plan Plan: Assessment: 1. End-stage renal disease maintained on hemodialysis on Monday schedule. 2. Hypertensive emergency with volume overload. Improved. 3. Acute on chronic diastolic CHF with moderate to severe tricuspid regurgitation and pulmonary hypertension. 4. History of pericardial effusion. 5. Chronic hyperkalemia secondary to chronic kidney disease and hyperglycemia. Stable. 6. Diabetes mellitus. 7. 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 8. Anemia of chronic kidney disease. Rule out iron deficiency. Plan: Hemodialysis tomorrow. Home antihypertensives resumed. Dose of Coreg increased. Avoid hydralazine and minoxidil due to pericardial effusion. Avoid CHANDA inhibitor or angiotensin receptor blockers due to chronic hyperkalem ia. Wean Cleviprex. Patient has been strongly advised to be compliant with her home medications and dialysis treatments outpatient. Life-threatening risks of noncompliance, including , have been discussed with the patient with times. Check iron studies.
[2021-10-31] MEDS: cloNIDine HCL 0.1 MG TAB PO SCH ×3 (10:18→21:30)
[2021-10-31] MEDS: carvediloL 12.5 MG TAB PO SCH ×2 (10:18→17:59)
[2021-10-31] MEDS: ATORVASTATIN 40 MG TAB PO SCH (10:18)
[2021-10-31] MEDS: ASPIRIN 81 MG PO SCH (10:18)
[2021-10-31] MEDS: NITROGLYCERIN OINT 1 INCH/GM PACKET TOPICAL SCH ×3 (10:18→23:46)
[2021-10-31] MEDS: ESCITALOPRAM 20 MG TAB PO SCH (10:19)
[2021-10-31] MEDS: CYANOCOBALAMIN 500 MCG TAB PO SCH (10:19)
[2021-10-31] MEDS: ERGOCALCIFEROL 1,250 MCG (50,000 IU) CAPSULE PO SCH (10:19)
[2021-10-31] MEDS: diphenhydrAMINE 50 MG/ML 1 ML VIAL IVP PRN ×3 (10:25→21:30)
[2021-10-31 10:29] LABS: Glucose,Whole Blood 302 mg/dL (75-99)
--- NOTE | 2021-10-31 11:24 | CA ---
Transthoracic Echo Report Name: Patsy Pizano Age: 30 Gender: F : 1990 Exam Date: 10/30/2021 10:04 Exam Location: [place] [facility] Ht (in): 64 Wt (lb): 110 Ordering Physician: Russel Guerra MD ([id number]) Attending/Referring Phys: Float Nurse Esmer Cardenas RDCS Procedure CPT: Indications: hypertensive emergency Cardiac Hx: Limited Echo. Technical Quality: Good Contrast 1: N/A Total Dose (mL): Contrast 2: Total Dose (mL): MEASUREMENTS (Male / Female) Normal Values 2D ECHO LV Diastolic Diameter PLAX 4.1 cm 4.2 - 5.9 / 3.9 - 5.3 cm LV Systolic Diameter PLAX 3.2 cm IVS Diastolic Thickness 1.4 cm 0.6 - 1.0 / 0.6 - 0.9 cm LVPW Diastolic Thickness 2.6 cm 0.6 - 1.0 / 0.6 - 0.9 cm LV Relative Wall Thickness 1.0 RV Internal Dim ED PLAX 2.8 cm LA Systolic Diameter LX 3.8 cm 3.0 - 4.0 / 2.7 - 3.8 cm DOPPLER TR Peak Velocity 314.2 cm/s TR Peak Gradient 39.5 mmHg Right Ventricular Systolic Press 44.5 mmHg FINDINGS Left Ventricle Left ventricular ejection fraction is estimated at 50-55 %. Moderately increased left ventricular wall thickness. Right Ventricle Normal right ventricular size and function. Mild pulmonary hypertension. Right Atrium The right atrium is normal in size. Left Atrium Mitral Valve Structurally normal mitral valve. Mild mitral regurgitation. Aortic Valve Structurally normal aortic valve without significant sclerosis or stenosis. There is no aortic regurgitation. Tricuspid Valve Structurally normal tricuspid valve. Mild tricuspid regurgitation. Pulmonic Valve Structurally normal pulmonic valve without significant stenosis. There is no pulmonic regurgitation. Pericardium Small pericardial effusion. Aorta Normal aortic root dimension. CONCLUSIONS #1. Normal left and coarse size with preserved LV function. #2. Moderate concentric left ventricle hypertrophy #3. Mild mitral and tricuspid regurgitation #4. Small pericardial effusion Previewed by: Dr. Russel Guerra MD (Electronically Signed) Final Date: 31 October 2021 11:23
[2021-10-31 11:48] LABS: Glucose,Whole Blood 122 mg/dL (75-99)
--- NOTE | 2021-10-31 11:50 | P.PN ---
Subjective Progress Note Date: 10/31/21 This 30-year-old female was admitted with uncontrolled hypertension and also some chest tightness. Patient was treated with IV cleviprex along with home medication including Catapres and Coreg. We'll increase the dose of the Coreg to 37.5 mg by mouth twice a day. Her blood pressure is in the range of 130/70. She is comfortable. Since yesterday. Her echo Cardigan showed normal LV function without any segmental wall motion defects. There is moderate concentric left and Hypertrophy and small pericardial effusion. We'll continue current medical therapy. Patient is going to have dialysis again. Further examination depend upon the clinical course Objective - Vital Signs Vital signs: Vital Signs Temp 98.0 F 10/31/21 08:00 Pulse 70 10/31/21 11:00 Resp 27 H 10/31/21 11:00 BP 155/90 10/31/21 11:00 Pulse Ox 97 10/31/21 11:00 FiO2 Intake & Output 10/30/21 10/31/21 10/31/21 18:59 06:59 18:59 Intake Total 1485.934 480 500 Output Total 3000 0 0 Balance -1514.066 480 500 Weight 50 kg 54.1 kg Intake: Intake, IV Titration 35.934 0 Amount Clevidipine Butyrate 25 35.934 0 mg In Empty Bag 1 bag @ 1 MG/HR 2 mls/hr IV .Q24H [facility] Rx#:[id number] Oral 1450 480 500 Output: Urine 0 0 0 Hemodialysis 3000 Other: # Voids 0 - Exam GENERAL EXAM: Patient is alert and oriented and doesn't appear to be in any acute distress HEENT: Normocephalic. Normal reaction of pupils, equal size, normal range of extraocular motion. No erythema or exudates in the throat. NECK: No masses, no nuchal rigidity. CHEST: No chest wall deformity. LUNGS: Equal air entry with no crackles or wheeze. HEART: S1 and S2 normal with no audible mumurs or gallops. Regular rhythm, femorals equal on both sides.. ABDOMEN: No hepatosplenomegaly, normal bowel sounds, no guarding or rigidity. SKIN: No rashes CENTRAL NERVOUS SYSTEM: No focal deficits. EXTREMITIES: Mild edema - Labs CBC & Chem 7: 10/31/21 05:44 10/31/21 05:44 Labs: Abnormal Lab Results - Last 24 Hours (Table) 10/30/21 10/30/21 10/30/21 Range/Units 16:26 20:54 20:55 RBC (3.80-5.40) m/uL Hgb (11.4-16.0) gm/dL Hct (34.0-46.0) % RDW (11.5-15.5) % Chloride (98-107) mmol/L BUN (7-17) mg/dL Creatinine (0.52-1.04) mg/dL Glucose (74-99) mg/dL POC Glucose (mg/dL) 260 H 498 H 516 H (75-99) mg/dL 10/30/21 10/30/21 10/31/21 Range/Units 21:58 22:41 02:08 RBC (3.80-5.40) m/uL Hgb (11.4-16.0) gm/dL Hct (34.0-46.0) % RDW (11.5-15.5) % Chloride (98-107) mmol/L BUN (7-17) mg/dL Creatinine (0.52-1.04) mg/dL Glucose (74-99) mg/dL POC Glucose (mg/dL) 541 H 427 H 172 H (75-99) mg/dL 10/31/21 10/31/21 10/31/21 Range/Units 05:44 05:44 06:48 RBC 2.83 L (3.80-5.40) m/uL Hgb 8.5 L D (11.4-16.0) gm/dL Hct 24.7 L (34.0-46.0) % RDW 15.8 H (11.5-15.5) % Chloride 97 L (98-107) mmol/L BUN 35 H (7-17) mg/dL Creatinine 4.86 H (0.52-1.04) mg/dL Glucose 59 L (74-99) mg/dL POC Glucose (mg/dL) 34 L (75-99) mg/dL 10/31/21 10/31/21 Range/Units 07:05 10:28 RBC (3.80-5.40) m/uL Hgb (11.4-16.0) gm/dL Hct (34.0-46.0) % RDW (11.5-15.5) % Chloride (98-107) mmol/L BUN (7-17) mg/dL Creatinine (0.52-1.04) mg/dL Glucose (74-99) mg/dL POC Glucose (mg/dL) 135 H 302 H (75-99) mg/dL Assessment and Plan (1) Hypertensive emergency Current Visit: Yes Status: Acute Code(s): I16.1 - HYPERTENSIVE EMERGENCY SNOMED Code(s): 279844242234145 (2) CKD (chronic kidney disease) Current Visit: No Status: Acute Code(s): N18.9 - CHRONIC KIDNEY DISEASE, UNSPECIFIED SNOMED Code(s): 708975439 (3) Chest pain Current Visit: No Status: Acute Code(s): R07.9 - CHEST PAIN, UNSPECIFIED SNOMED Code(s): 73056829 (4) Congestive heart failure Current Visit: No Status: Acute Code(s): I50.9 - HEART FAILURE, UNSPECIFIED SNOMED Code(s): 45220189 Plan: Patient remains pain-free. Her blood pressure is reasonably controlled. I'm going to increase the dose of the Coreg. Patient is going to have dialysis. Patient is instructed to be compliant with her medication
--- NOTE | 2021-10-31 13:03 | PN ---
PROGRESS NOTE DATE OF SERVICE: 10/31/2021 CHIEF COMPLAINT: Malignant hypertension and renal failure. HISTORY OF PRESENT ILLNESS: This lady is under better control since she has been dialyzed. Blood pressure has improved. Her blood sugars carlos significantly during the night, and this is being addressed. REVIEW OF SYSTEMS: She denies any headaches, chest pain, shortness of breath, abdominal pain, etc. PHYSICAL EXAMINATION: Her vital signs are normal with an improved blood pressure. Chest is clear. Cardiac exam demonstrates sinus rhythm. The abdomen is soft and nontender. IMPRESSION: 1. Malignant hypertension. 2. Stage 5 chronic kidney disease, on dialysis. 3. Uncontrolled diabetes mellitus. PLAN: 1. Increase insulin management. 2. Advance activity and diet. MMODL / IJN: [id number] /
--- NOTE | 2021-10-31 13:20 | P.PN ---
Subjective Progress Note Date: 10/31/21 This is a 30-year-old female patient with a known history of type 1 diabetes mellitus, diabetic retinopathy legally blind, diabetic neuropathy, end-stage renal disease on hemodialysis Monday, hypertension, previous CVA/TIA, pericardial effusion. She has had multiple admissions to the hospital. She was brought in again yesterday with concerns regarding high blood pressure and chest discomfort. Presenting blood pressure was 260/128. She was initiated on clever proximal at 2 mg per hour. She is seen today in consultation in the intensive care unit. She is awake and alert in no acute distress. Maintaining good O2 saturations in the 90s on room air. She states she has been compliant with her dialysis on Monday was actually at dialysis when her blood pressure is noted to be significantly elevated. Current blood pressure 127/83 with a mean of 97. Chest x-ray revealed cardiomegaly with mild central vascular congestion. No chest discomfort. No worsening shortness of breath. No cough or congestion. Count 7.1. Hemoglobin 10.2. Platelets 270. Sodium 1 40. Potassium 3.7. Chloride 91. Bicarb 37. BUN 22. Creatinine 3.04. Blood glucose 98. AST 43. ALT 50. Troponin 0.316. ProBNP 142,000. She remains on clever proximal at 2 mg per hour. She is also on Coreg, Catapres, Procardia, Nitro-Bid ointment. The patient is seen today 10/31/2021 in follow-up in the intensive care unit. She is currently resting comfortably in bed. Awake and alert in no acute distress. She is maintaining good O2 saturations in the 90s on room air. Her hypertension has improved. Her clever proximal is off. She did have hemodialysis yesterday with 3 L removed. White count 5.5. Hemoglobin 8.5. Platelets 276. Sodium 137. Potassium 4.3. Chloride 97. BUN 35. Creatinine 4.86. Glucose 122. No significant events overnight. She is maintained on carvedilol, clonidine, Procardia, Nitro-Bid ointment. Objective - Vital Signs Vital signs: Vital Signs Temp 98.0 F 10/31/21 08:00 Pulse 71 10/31/21 13:00 Resp 23 10/31/21 13:00 BP 171/118 10/31/21 12:00 Pulse Ox 99 06/05/22 13:00 FiO2 Intake & Output 10/30/21 10/31/21 10/31/21 18:59 06:59 18:59 Intake Total 1485.934 480 500 Output Total 3000 0 0 Balance -1514.066 480 500 Weight 50 kg 54.1 kg Intake: Intake, IV Titration 35.934 0 Amount Clevidipine Butyrate 25 35.934 0 mg In Empty Bag 1 bag @ 1 MG/HR 2 mls/hr IV .Q24H [facility] Rx#:[id number] Oral 1450 480 500 Output: Urine 0 0 0 Hemodialysis 3000 Other: # Voids 0 - Exam GENERAL EXAM: Alert, pleasant 30-year-old female, on room air, comfortable in no apparent distress. HEAD: Normocephalic. EYES: Normal reaction of pupils, equal size. NOSE: Clear with pink turbinates. THROAT: No erythema or exudates. NECK: No masses, no JVD. CHEST: No chest wall deformity. LUNGS: Equal air entry with no crackles, wheeze, rhonchi or dullness. CVS: S1 and S2 normal with no audible murmur, regular rhythm. ABDOMEN: No hepatosplenomegaly, normal bowel sounds, no guarding or rigidity. SPINE: No scoliosis or deformity SKIN: No rashes CENTRAL NERVOUS SYSTEM: No focal deficits, tone is normal in all 4 extremities. EXTREMITIES: Left upper extremity AV fistula. There is no peripheral edema. No clubbing, no cyanosis. Peripheral pulses are intact.. - Labs CBC & Chem 7: 10/31/21 05:44 10/31/21 05:44 Labs: Abnormal Lab Results - Last 24 Hours (Table) 10/30/21 10/30/21 10/30/21 Range/Units 16:26 20:54 20:55 RBC (3.80-5.40) m/uL Hgb (11.4-16.0) gm/dL Hct (34.0-46.0) % RDW (11.5-15.5) % Chloride (98-107) mmol/L BUN (7-17) mg/dL Creatinine (0.52-1.04) mg/dL Glucose (74-99) mg/dL POC Glucose (mg/dL) 260 H 498 H 516 H (75-99) mg/dL 10/30/21 10/30/21 10/31/21 Range/Units 21:58 22:41 02:08 RBC (3.80-5.40) m/uL Hgb (11.4-16.0) gm/dL Hct (34.0-46.0) % RDW (11.5-15.5) % Chloride (98-107) mmol/L BUN (7-17) mg/dL Creatinine (0.52-1.04) mg/dL Glucose (74-99) mg/dL POC Glucose (mg/dL) 541 H 427 H 172 H (75-99) mg/dL 10/31/21 10/31/21 10/31/21 Range/Units 05:44 05:44 06:48 RBC 2.83 L (3.80-5.40) m/uL Hgb 8.5 L D (11.4-16.0) gm/dL Hct 24.7 L (34.0-46.0) % RDW 15.8 H (11.5-15.5) % Chloride 97 L (98-107) mmol/L BUN 35 H (7-17) mg/dL Creatinine 4.86 H (0.52-1.04) mg/dL Glucose 59 L (74-99) mg/dL POC Glucose (mg/dL) 34 L (75-99) mg/dL 10/31/21 10/31/21 10/31/21 Range/Units 07:05 10:28 11:47 RBC (3.80-5.40) m/uL Hgb (11.4-16.0) gm/dL Hct (34.0-46.0) % RDW (11.5-15.5) % Chloride (98-107) mmol/L BUN (7-17) mg/dL Creatinine (0.52-1.04) mg/dL Glucose (74-99) mg/dL POC Glucose (mg/dL) 135 H 302 H 122 H (75-99) mg/dL Assessment and Plan Assessment: Hypertensive emergency with subsequent chest discomfort Mild troponin leak secondary to above Acute pulmonary edema secondary to hypertensive emergency History of previous hypertensive emergency requiring a nitroglycerin drip End-stage renal disease to receive hemodialysis on Monday, unclear if any missed treatments Acute hyponatremia Anion gap metabolic acidosis Chronic anemia Recent hospitalization for hypertensive emergency, missed dialysis, discharged on 09/23/2021 Recent moderate circumferential pericardial effusion Recent hospitalization for bilateral pneumonia, discharged on 09/06/2021 with Avelox and doxycycline History of CVA/TIA History of COVID-19 infection in May 2021 Plan: The patient was seen and evaluated Labs and medications reviewed He did receive hemodialysis yesterday with 3 L removed Blood pressure under better control Off clevidipine Continue oral antihypertensives We will continue to follow I have personally seen and examined the patient, performed the documentation and the assessment and plan as written. Number of minutes spent on the visit: 10.
[2021-10-31 13:41] LABS: % Iron Saturation 38.67 (12.00-45.00)
[2021-10-31] MEDS: HYDROcodone/APAP 5-325MG 1 EACH TAB PO PRN (15:16)
[2021-10-31 17:09] LABS: Glucose,Whole Blood 204 mg/dL (75-99)
[2021-10-31 20:23] LABS: Glucose,Whole Blood 562 mg/dL (75-99)
[2021-10-31 21:14] LABS: Glucose,Whole Blood 560 mg/dL (75-99)
[2021-10-31] MEDS: MELATONIN 5 MG TABLET PO PRN (21:30)
[2021-11-01 01:42] LABS: Glucose,Whole Blood 393 mg/dL (75-99)
[2021-11-01 07:10] LABS: Glucose,Whole Blood 37 mg/dL (75-99)
[2021-11-01 07:40] LABS: Glucose,Whole Blood 100 mg/dL (75-99)
[2021-11-01] MEDS: INSULIN ASPART (NovoLOG) 100 UNIT/ML VIAL SQ SCH ×8 (07:45→20:55)
[2021-11-01] MEDS: INSULIN DETEMIR (LEVEMIR) 100 UNIT/ML SYR SQ SCH (07:45)
[2021-11-01] MEDS: diphenhydrAMINE 50 MG/ML 1 ML VIAL IVP PRN ×4 (08:42→22:20)
--- NOTE | 2021-11-01 10:14 | P.PN ---
Subjective Patient is seen in follow-up for end-stage renal disease. Tolerating dialysis well. Blood pressure controlled. Denies chest pain or shortness of breath. Blood sugar low this morning. No active complaints. Vital signs are stable. General: Awake. No acute distress. HEENT: Head exam is unremarkable. LUNGS: Breath sounds decreased. HEART: Rate and Rhythm are regular. ABDOMEN: Soft, no distention. EXTREMITITES: No edema. Objective - Vital Signs Vital signs: Vital Signs Temp 98.6 F 11/01/21 05:16 Pulse 67 11/01/21 05:16 Resp 18 11/01/21 05:16 BP 143/74 11/01/21 05:16 Pulse Ox 100 11/01/21 05:16 FiO2 Intake & Output 10/31/21 11/01/21 11/01/21 18:59 06:59 18:59 Intake Total 740 594 Output Total 0 Balance 740 594 Intake: Intake, IV Titration 240 Amount Sodium Chloride 0.9% 1, 240 000 ml @ 20 mls/hr IV . Q24H [facility]S [facility]CLUDE 234 BEDS AT [facility] Rx#:[id number] Oral 500 594 Output: Urine 0 - Labs CBC & Chem 7: 10/31/21 05:44 11/01/21 07:28 Labs: Abnormal Lab Results - Last 24 Hours (Table) 10/31/21 10/31/21 10/31/21 Range/Units 05:44 10:28 11:47 Glucose (74-99) mg/dL POC Glucose (mg/dL) 302 H 122 H (75-99) mg/dL Transferrin 179.0 L (204.0-354.0) mg/dL Ferritin 6198.0 H (10.0-291.0) ng/mL 10/31/21 10/31/21 10/31/21 Range/Units 17:08 20:21 21:12 Glucose (74-99) mg/dL POC Glucose (mg/dL) 204 H 562 H 560 H (75-99) mg/dL Transferrin (204.0-354.0) mg/dL Ferritin (10.0-291.0) ng/mL 11/01/21 11/01/21 11/01/21 Range/Units 01:41 07:08 07:28 Glucose 58 L (74-99) mg/dL POC Glucose (mg/dL) 393 H 37 L (75-99) mg/dL Transferrin (204.0-354.0) mg/dL Ferritin (10.0-291.0) ng/mL 11/01/21 Range/Units 07:38 Glucose (74-99) mg/dL POC Glucose (mg/dL) 100 H (75-99) mg/dL Transferrin (204.0-354.0) mg/dL Ferritin (10.0-291.0) ng/mL Assessment and Plan Plan: Assessment: 1. End-stage renal disease maintained on hemodialysis on Monday schedule. 2. Hypertensive emergency with volume overload. Improved. 3. Acute on chronic diastolic CHF with moderate to severe tricuspid regurgitation and pulmonary hypertension. 4. History of pericardial effusion. 5. Chronic hyperkalemia secondary to chronic kidney disease and hyperglycemia. Stable. 6. Diabetes mellitus. 7. 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 8. Anemia of chronic kidney disease. Iron replete. Plan: Currently seen while undergoing hemodialysis. Maintain current antihypertensives. Avoid hydralazine and minoxidil due to pericardial effusion. Avoid CHANDA inhibitor or angiotensin receptor blockers due to chronic hyperkalem ia. Patient has been strongly advised to be compliant with her home medications and dialysis treatments outpatient. Life-threatening risks of noncompliance, including , have been discussed with the patient with times. Add Aranesp.
--- NOTE | 2021-11-01 10:25 | P.PN ---
Subjective Progress Note Date: 11/01/21 HISTORY OF PRESENT ILLNESS: Patient examined this morning at the bedside. Patient denies chest pain or pressure. She denies shortness of breath. Patient's blood pressure has improv ed with a systolic in the 140s. She is currently undergoing hemodialysis. PHYSICAL EXAM: VITAL SIGNS: Reviewed. GENERAL: Well-developed in no acute distress. NECK: Supple. No JVD or thyromegaly LUNGS: Respirations even and unlabored. Lungs essentially clear to auscultation bilaterally. HEART: Regular rate and rhythm. S1 and S2 heard. EXTREMITIES: Normal range of motion. No clubbing or cyanosis. Peripheral pulses intact. No lower extremity edema ASSESSMENT: Hypertensive emergency Chest pain, likely secondary to above, resolved End-stage renal disease on hemodialysis Acute on chronic heart failure with preserved ejection fraction Diabetes PLAN: Continue current cardiac medications Discontinue nitro paste. Resume imdur Hemodialysis per nephrology Stable from a cardiac standpoint. We will sign off. Please reconsult if needed. Nurse practitioner note has been reviewed by physician. Signing provider agrees with the documented findings, assessment, and plan of care. Objective - Vital Signs Vital signs: Vital Signs Temp 98.6 F 11/01/21 05:16 Pulse 67 11/01/21 05:16 Resp 18 11/01/21 05:16 BP 143/74 11/01/21 05:16 Pulse Ox 100 11/01/21 05:16 FiO2 Intake & Output 10/31/21 11/01/21 11/01/21 18:59 06:59 18:59 Intake Total 740 594 Output Total 0 Balance 740 594 Intake: Intake, IV Titration 240 Amount Sodium Chloride 0.9% 1, 240 000 ml @ 20 mls/hr IV . Q24H [facility] Rx#:[id number] Oral 500 594 Output: Urine 0 - Labs CBC & Chem 7: 10/31/21 05:44 11/01/21 07:28 Labs: Abnormal Lab Results - Last 24 Hours (Table) 10/31/21 10/31/21 10/31/21 Range/Units 05:44 10:28 11:47 Glucose (74-99) mg/dL POC Glucose (mg/dL) 302 H 122 H (75-99) mg/dL Transferrin 179.0 L (204.0-354.0) mg/dL Ferritin 6198.0 H (10.0-291.0) ng/mL 10/31/21 10/31/21 10/31/21 Range/Units 17:08 20:21 21:12 Glucose (74-99) mg/dL POC Glucose (mg/dL) 204 H 562 H 560 H (75-99) mg/dL Transferrin (204.0-354.0) mg/dL Ferritin (10.0-291.0) ng/mL 11/01/21 11/01/21 11/01/21 Range/Units 01:41 07:08 07:28 Glucose 58 L (74-99) mg/dL POC Glucose (mg/dL) 393 H 37 L (75-99) mg/dL Transferrin (204.0-354.0) mg/dL Ferritin (10.0-291.0) ng/mL 11/01/21 Range/Units 07:38 Glucose (74-99) mg/dL POC Glucose (mg/dL) 100 H (75-99) mg/dL Transferrin (204.0-354.0) mg/dL Ferritin (10.0-291.0) ng/mL
[2021-11-01] MEDS ORDERED: DARBEPOETIN ALFA 40 MCG/0.4 ML SYRINGE SQ SCH (11:00)
[2021-11-01 11:17] LABS: Glucose,Whole Blood 240 mg/dL (75-99)
[2021-11-01] MEDS: CYANOCOBALAMIN 500 MCG TAB PO SCH (12:06)
[2021-11-01] MEDS: ISOSORBIDE MONONITRATE ER 30 MG TAB.ER.24H PO SCH (12:07)
[2021-11-01] MEDS: PANTOPRAZOLE 40 MG TABLET PO SCH (12:07)
[2021-11-01] MEDS: ATORVASTATIN 40 MG TAB PO SCH (12:07)
[2021-11-01] MEDS: ESCITALOPRAM 20 MG TAB PO SCH (12:07)
[2021-11-01] MEDS: CALCIUM ACETATE 667 MG TAB PO SCH ×3 (12:07→17:22)
[2021-11-01] MEDS: ASPIRIN 81 MG PO SCH (12:07)
[2021-11-01] MEDS: NITROGLYCERIN OINT 1 INCH/GM PACKET TOPICAL SCH (12:15)
[2021-11-01] MEDS: cloNIDine HCL 0.1 MG TAB PO SCH ×3 (12:53→20:52)
[2021-11-01] MEDS: carvediloL 12.5 MG TAB PO SCH ×2 (12:53→17:22)
--- NOTE | 2021-11-01 15:14 | CDI ---
Documentation Clarification Form Date: 11/01/2021 02:32:29 PM From: Jennifer Hutton RN, CCDS Admit Date: 10/29/2021 05:33:00 PM Patient Name: Patsy Pizano Visit Number: [id number] Discharge Date: ATTENTION: The Clinical Documentation Specialists (CDI) and [facility] Coding Staff appreciate your assistance in clarifying documentation. Please respond to the clarification below the line at the bottom and electronically sign. The CDI & [facility] Coding staff will review the response and follow-up if needed. Please note: Queries are made part of the Legal Health Record. If you have any questions, please contact the author of this message via ITS. Dr. Roque Buckner There is documentation of malignant hypertension in the H/P and subsequent progress notes that may not reflect the severity of the patient condition. Additional clarification is requested. 10/30 Cardiology consult: Hypertensive emergency 10/30 Nephrology consult: Hypertensive emergency with volume overload. Acute on chronic diastolic CHF with moderate to severe tricuspid regurgitation and pulmonary hypertension 10/31 Pulmonary consult: Hypertensive emergency with subsequent chest discomfort. History/Risk Factors: ESRD on HD, Hypertension, Diabetes Mellitus Clinical Indicators: 30-year-old female present to the ED with complaints of chest pain and elevated blood pressure. She has history of noncompliance with medications. 10/29 vital signs 264/120 76 18 90 % RA, 260/128, 250/120 Treatment: ICU/Telemetry monitoring Nitro drip 50 MG in 250/ML @ 6 mls/hr 10/29 Cleviprex 25 MG in 50 MLS @ 2MLS/HR 10/29-10/30 Hemodialysis (per orders/Nephrology) Procardia XL 120 MG PO Daily (10/30-11/01) Coreg 25 MG PO BID (10/29-10/30) 37.5 MG PO TID 10/30- Catapres 0.3 MG PO TID 10/29- 11/01 Can you please further specify malignant hypertension? [ ] Hypertensive Emergency [ ] Other, please specify [ ] Unable to determine (Template Last Revised: July 2020) MTDD
--- NOTE | 2021-11-01 15:29 | CDI ---
Documentation Clarification Form Date: 11/01/2021 03:17:32 PM From: Jennifer Hutton RN, CCDS Admit Date: 10/29/2021 05:33:00 PM Patient Name: Patsy Pizano Visit Number: [id number] Discharge Date: ATTENTION: The Clinical Documentation Specialists (CDI) and [facility] Coding Staff appreciate your assistance in clarifying documentation. Please respond to the clarification below the line at the bottom and electronically sign. The CDI & [facility] Coding staff will review the response and follow-up if needed. Please note: Queries are made part of the Legal Health Record. If you have any questions, please contact the author of this message via ITS. Dr. Roque Buckner Uncontrolled diabetes mellitus is documented in the progress note on 10/31/21]. Additional specificity regarding the diabetes diagnosis is requested. History/Risk Factors: ESRD on HD, Hypertension, Diabetes Mellitus, CVA Clinical Indicators: 30-year-old female present to ED with complaints of chest pain and elevated blood pressure. She also has a history of diabetes mellitus type 1. Progress note has indicated uncontrolled diabetes mellitus. 10/31 glucose 135, 122, 204, 560, 393 Treatment: ICU/Telemetry monitoring Monitor blood sugars ac and hs with sliding scale coverage per protocol Levemir 10 U SQ Daily @ 0700 Please further clarify the type of diabetes, if known: [ ] Diabetes Type 1 Uncontrolled with Hyperglycemia [ ] Other, please specify [ ] Unable to Determine (Template Last Revised: July 2020) MTDD
[2021-11-01 17:07] LABS: Glucose,Whole Blood 392 mg/dL (75-99)
[2021-11-01] MEDS: SODIUM CHLORIDE 0.9% 1,000 ML IV SCH (17:28)
--- NOTE | 2021-11-01 19:24 | PN ---
PROGRESS NOTE DATE OF SERVICE: 11/01/2021 CHIEF COMPLAINT: Hypertension and renal failure. HISTORY OF PRESENT ILLNESS: This lady is doing fairly well. She is being dialyzed again today. Other than that, she has been fairly stable. Vital signs are normal. Her blood sugars are fluctuating all over the place. Last night she was 500; this morning she was 37. PHYSICAL EXAM: Her chest is clear. Cardiac exam is normal. Abdomen is soft, nontender. IMPRESSION: 1. End-stage renal disease, on dialysis. 2. Malignant hypertension. 3. Uncontrolled diabetes. PLAN: Readjust her insulins in hopes of stabilizing her blood sugars and continue with dialysis. MMODL / IJN: [id number] /
[2021-11-01 20:27] LABS: Glucose,Whole Blood 451 mg/dL (75-99)
[2021-11-01] MEDS: MELATONIN 5 MG TABLET PO PRN (20:54)
[2021-11-02 01:34] LABS: Glucose,Whole Blood 334 mg/dL (75-99)
[2021-11-02] MEDS: diphenhydrAMINE 50 MG/ML 1 ML VIAL IVP PRN ×3 (02:35→15:31)
[2021-11-02 04:42] LABS: Glucose,Whole Blood >600 mg/dL (75-99)
[2021-11-02 04:42] LABS: Glucose,Whole Blood >600 mg/dL (75-99)
[2021-11-02 06:05] LABS: Glucose,Whole Blood >600 mg/dL (75-99)
[2021-11-02] MEDS ORDERED: INSULIN ASPART (NovoLOG) 100 UNIT/ML VIAL SQ ONE (06:05)
[2021-11-02] MEDS ORDERED: INSULIN DETEMIR (LEVEMIR) 100 UNIT/ML SYR SQ SCH ×2 (07:00→21:00)
[2021-11-02 07:06] LABS: ALT 30 U/L (4-34); AST 32 U/L (14-36); African American GFR (CKD) 11 (>60 ml/min/1.73 sqM); Albumin 4.2 g/dL (3.5-5.0); Albumin/Globulin Ratio 1.7; Alkaline Phosphatase 170 U/L (38-126); Anion Gap 20 mmol/L; Blood Urea Nitrogen 47 mg/dL (7-17); Calcium 8.5 mg/dL (8.4-10.2); Carbon Dioxide 18 mmol/L (22-30); Chloride 89 mmol/L (98-107); Globulin 2.5 g/dL; Non-African American GFR(CKD) 10 (>60 ml/min/1.73 sqM); Sodium 127 mmol/L (137-145); Total Bilirubin 0.6 mg/dL (0.2-1.3); Total Protein 6.7 g/dL (6.3-8.2)
[2021-11-02 07:20] LABS: Glucose 782 mg/dL (74-99)
[2021-11-02 07:21] LABS: Potassium 7.1 mmol/L (3.5-5.1)
[2021-11-02 07:23] LABS: Glucose,Whole Blood >600 mg/dL (75-99)
[2021-11-02] MEDS: INSULIN ASPART (NovoLOG) 100 UNIT/ML VIAL SQ SCH ×4 (07:33→21:20)
[2021-11-02 07:54] LABS: Glucose,Whole Blood >600 mg/dL (75-99)
[2021-11-02] MEDS ORDERED: INSULIN REGULAR 100 UNIT in SODIUM CHLORIDE 0.9% 100 ML IV SCH ×2 (08:45→10:15)
[2021-11-02] MEDS: PANTOPRAZOLE 40 MG TABLET PO SCH (08:52)
[2021-11-02] MEDS: ISOSORBIDE MONONITRATE ER 30 MG TAB.ER.24H PO SCH (08:52)
[2021-11-02] MEDS: carvediloL 12.5 MG TAB PO SCH ×3 (08:52→17:32)
[2021-11-02] MEDS: CALCIUM ACETATE 667 MG TAB PO SCH ×3 (08:53→16:23)
[2021-11-02] MEDS: ATORVASTATIN 40 MG TAB PO SCH (08:53)
[2021-11-02] MEDS: cloNIDine HCL 0.1 MG TAB PO SCH ×3 (08:53→21:34)
[2021-11-02] MEDS: ASPIRIN 81 MG PO SCH (08:53)
[2021-11-02] MEDS: CYANOCOBALAMIN 500 MCG TAB PO SCH (08:53)
[2021-11-02] MEDS: ESCITALOPRAM 20 MG TAB PO SCH (08:54)
[2021-11-02 08:55] LABS: Glucose,Whole Blood 446 mg/dL (75-99)
[2021-11-02] MEDS ORDERED: CALCIUM GLUCONATE IN NACL 1 GM in SALINE 1 100ML.BAG IVPB ONE (09:30)
[2021-11-02 10:05] LABS: Glucose,Whole Blood 214 mg/dL (75-99)
--- NOTE | 2021-11-02 10:19 | P.PN ---
Subjective Progress Note Date: 11/02/21 11/02/2021, the patient got transferred back to the intensive care unit. We are going to see this patient in consultation. The patient was in a medical floor. She is a type I diabetic and she has also retinopathy and she is legally blind along with neuropathy and she also has end-stage renal disease on hemodialysis 3 times a week. She has had previous CVA and pericardial effusion she has had als o multiple admissions to the hospital. During this most recent hospitalization, the patient was having some issues with blood pressure and chest pain. Her blood pressure was quite elevated. This was regulated and the patient got dialyzed and her last dialysis was yesterday. Her chest x-ray was revealing some cardiomegaly and microvascular congestion. The patient transferred to the intensive care unit this morning because of hyperglycemia and the sugar was above 700. The patient also had a potassium level of 7.1 with a sodium level of 127. This was a significant drop compared to yesterday and for that reason the patient is having an emergent dialysis today. She is currently on room air oxygen. She is getting a blood pressure 162/87. She is free of any chest pain. She is maintained on a combination of Coreg, clonidine, Procardia and Nitro-Bid for blood pressure control. Her cardiac rhythm is sinus. Objective - Vital Signs Vital signs: Vital Signs Temp 98.6 F 11/02/21 04:00 Pulse 70 11/02/21 04:00 Resp 16 11/02/21 04:00 BP 130/71 11/02/21 04:00 Pulse Ox 95 11/02/21 04:00 FiO2 Intake & Output 11/01/21 11/02/21 11/02/21 18:59 06:59 18:59 Intake Total 300 240 100 Output Total 3900 Balance -3600 240 100 Intake: Intake, IV Titration 0 Amount Sodium Chloride 0.9% 1, 0 000 ml @ 20 mls/hr IV . Q24H [facility] Rx#:[id number] Oral 240 100 Hemodialysis 300 Output: Hemodialysis 3900 Other: # Voids 2 - Exam GENERAL EXAM: Alert, pleasant 30-year-old female, on room air, comfortable in no apparent distress. HEAD: Normocephalic. EYES: Normal reaction of pupils, equal size. NOSE: Clear with pink turbinates. THROAT: No erythema or exudates. NECK: No masses, no JVD. CHEST: No chest wall deformity. LUNGS: Equal air entry with no crackles, wheeze, rhonchi or dullness. CVS: S1 and S2 normal with a systolic ejection murmur grade 4/6 heard throughout the precordium, regular rhythm. ABDOMEN: No hepatosplenomegaly, normal bowel sounds, no guarding or rigidity. SPINE: No scoliosis or deformity SKIN: No rashes CENTRAL NERVOUS SYSTEM: No focal deficits, tone is normal in all 4 extremities. EXTREMITIES: Left upper extremity AV fistula. There is no peripheral edema. No clubbing, no cyanosis. Peripheral pulses are intact.. - Labs CBC & Chem 7: 10/31/21 05:44 11/02/21 06:23 Labs: Abnormal Lab Results - Last 24 Hours (Table) 11/01/21 11/01/21 11/01/21 Range/Units 11:16 17:05 20:25 Sodium (137-145) mmol/L Potassium (3.5-5.1) mmol/L Chloride (98-107) mmol/L Carbon Dioxide (22-30) mmol/L BUN (7-17) mg/dL Creatinine (0.52-1.04) mg/dL Glucose (74-99) mg/dL POC Glucose (mg/dL) 240 H 392 H 451 H (75-99) mg/dL Alkaline Phosphatase (38-126) U/L 11/02/21 11/02/21 11/02/21 Range/Units 01:33 04:37 04:41 Sodium (137-145) mmol/L Potassium (3.5-5.1) mmol/L Chloride (98-107) mmol/L Carbon Dioxide (22-30) mmol/L BUN (7-17) mg/dL Creatinine (0.52-1.04) mg/dL Glucose (74-99) mg/dL POC Glucose (mg/dL) 334 H >600 H >600 H (75-99) mg/dL Alkaline Phosphatase (38-126) U/L 11/02/21 11/02/21 11/02/21 Range/Units 06:03 06:23 07:21 Sodium 127 L (137-145) mmol/L Potassium 7.1 H* (3.5-5.1) mmol/L Chloride 89 L (98-107) mmol/L Carbon Dioxide 18 L (22-30) mmol/L BUN 47 H (7-17) mg/dL Creatinine 5.46 H (0.52-1.04) mg/dL Glucose 782 H* (74-99) mg/dL POC Glucose (mg/dL) >600 H >600 H (75-99) mg/dL Alkaline Phosphatase 170 H (38-126) U/L 11/02/21 11/02/21 11/02/21 Range/Units 07:52 08:54 10:03 Sodium (137-145) mmol/L Potassium (3.5-5.1) mmol/L Chloride (98-107) mmol/L Carbon Dioxide (22-30) mmol/L BUN (7-17) mg/dL Creatinine (0.52-1.04) mg/dL Glucose (74-99) mg/dL POC Glucose (mg/dL) >600 H 446 H 214 H (75-99) mg/dL Alkaline Phosphatase (38-126) U/L Assessment and Plan Plan: Diabetes mellitus type 1 with acute hyperglycemia and brittle blood sugar control. The patient is having a blood sugar above 700. No signs of DKA at this point in time. The patient will be started on insulin drip for blood sugar control Acute hyperkalemia requiring hemodialysis. Hypertensive emergency with subsequent chest discomfort, recovered and the patient's BP is under better control, Mild troponin leak secondary to above Acute pulmonary edema secondary to hypertensive emergency, currently on room air oxygen End-stage renal disease to receive hemodialysis on Monday Acute hyponatremia and likely a pseudo-hyponatremia secondary to hyperglycemia. Anion gap metabolic acidosis Chronic anemia Recent hospitalization for hypertensive emergency, missed dialysis, discharged on 09/23/2021 Recent moderate circumferential pericardial effusion Recent hospitalization for bilateral pneumonia, discharged on 09/06/2021 with Avelox and doxycycline History of CVA/TIA History of COVID-19 infection in May 2021 Plan: Has already received morning Levemir at 10 units BID and she is already on sliding scale. The blood sugar is already dropped down to 270. We'll hold off the insulin drip for now. Proceed with hemodialysis Repeat blood work following hemodialysis, a bath and ultrafiltration will also be done in order of 1-2 L The patient was seen and evaluated Labs and medications reviewed Blood pressure under better control Continue oral antihypertensives We will continue to follow
[2021-11-02] MEDS ORDERED: LORazepam 1 MG TAB PO PRN (10:22)
--- NOTE | 2021-11-02 11:21 | P.PN ---
Subjective Patient is seen in follow-up for end-stage renal disease. Blood sugar 782 this morning with potassium 7.1. Patient denies any complaints. Blood pressure stable. Vital signs are stable. General: Awake. No acute distress. HEENT: Head exam is unremarkable. LUNGS: Breath sounds decreased. HEART: Rate and Rhythm are regular. ABDOMEN: Soft, no distention. EXTREMITITES: No edema. Objective - Vital Signs Vital signs: Vital Signs Temp 98.4 F 11/02/21 10:00 Pulse 77 11/02/21 10:00 Resp 10 L 11/02/21 10:00 BP 156/89 11/02/21 10:00 Pulse Ox 96 11/02/21 10:00 FiO2 Intake & Output 11/01/21 11/02/21 11/02/21 18:59 06:59 18:59 Intake Total 300 240 100 Output Total 3900 Balance -3600 240 100 Intake: Intake, IV Titration 0 Amount Sodium Chloride 0.9% 1, 0 000 ml @ 20 mls/hr IV . [facility] Rx#:[id number] Oral 240 100 Hemodialysis 300 Output: Hemodialysis 3900 Other: # Voids 2 - Labs CBC & Chem 7: 10/31/21 05:44 11/02/21 06:23 Labs: Abnormal Lab Results - Last 24 Hours (Table) 11/01/21 11/01/21 11/02/21 Range/Units 17:05 20:25 01:33 Sodium (137-145) mmol/L Potassium (3.5-5.1) mmol/L Chloride (98-107) mmol/L Carbon Dioxide (22-30) mmol/L BUN (7-17) mg/dL Creatinine (0.52-1.04) mg/dL Glucose (74-99) mg/dL POC Glucose (mg/dL) 392 H 451 H 334 H (75-99) mg/dL Alkaline Phosphatase (38-126) U/L 11/02/21 11/02/21 11/02/21 Range/Units 04:37 04:41 06:03 Sodium (137-145) mmol/L Potassium (3.5-5.1) mmol/L Chloride (98-107) mmol/L Carbon Dioxide (22-30) mmol/L BUN (7-17) mg/dL Creatinine (0.52-1.04) mg/dL Glucose (74-99) mg/dL POC Glucose (mg/dL) >600 H >600 H >600 H (75-99) mg/dL Alkaline Phosphatase (38-126) U/L 11/02/21 11/02/21 11/02/21 Range/Units 06:23 07:21 07:52 Sodium 127 L (137-145) mmol/L Potassium 7.1 H* (3.5-5.1) mmol/L Chloride 89 L (98-107) mmol/L Carbon Dioxide 18 L (22-30) mmol/L BUN 47 H (7-17) mg/dL Creatinine 5.46 H (0.52-1.04) mg/dL Glucose 782 H* (74-99) mg/dL POC Glucose (mg/dL) >600 H >600 H (75-99) mg/dL Alkaline Phosphatase 170 H (38-126) U/L 11/02/21 11/02/21 Range/Units 08:54 10:03 Sodium (137-145) mmol/L Potassium (3.5-5.1) mmol/L Chloride (98-107) mmol/L Carbon Dioxide (22-30) mmol/L BUN (7-17) mg/dL Creatinine (0.52-1.04) mg/dL Glucose (74-99) mg/dL POC Glucose (mg/dL) 446 H 214 H (75-99) mg/dL Alkaline Phosphatase (38-126) U/L Assessment and Plan Plan: Assessment: 1. End-stage renal disease maintained on hemodialysis on Monday schedule. 2. Hypertensive emergency with volume overload. Improved. 3. Acute on chronic diastolic CHF with moderate to severe tricuspid regurgitation and pulmonary hypertension. 4. History of pericardial effusion. 5. Chronic hyperkalemia secondary to chronic kidney disease and hyperglycemia. Potassium 7.1 today due to hyperglycemia. 6. Diabetes mellitus. 7. 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 8. Anemia of chronic kidney disease. Iron replete. On Aranesp. 9. Hypertonic hyponatremia secondary to hyperglycemia. Corrected sodium in the normal range. Plan: 1 g IV calcium gluconate now. Start insulin drip. Defer further management to primary team. Patient will be transferred to the ICU. Plan for hemodialysis treatment today. Maintain current antihypertensives. Avoid hydralazine and minoxidil due to pericardial effusion. Avoid CHANDA inhibitor or angiotensin receptor blockers due to chronic hyperkalemia. Patient has been strongly advised to be compliant with her home medications and dialysis treatments outpatient. Life-threatening risks of noncompliance, including , have been discussed with the patient with times.
[2021-11-02 11:41] LABS: Glucose,Whole Blood 86 mg/dL (75-99)
[2021-11-02 11:43] LABS: Glucose,Whole Blood 87 mg/dL (75-99)
[2021-11-02] MEDS ORDERED: INSULIN ASPART (NovoLOG) 100 UNIT/ML VIAL SQ SCH (12:30)
[2021-11-02 12:37] LABS: Glucose,Whole Blood 106 mg/dL (75-99)
[2021-11-02 16:17] LABS: Glucose,Whole Blood 189 mg/dL (75-99)
[2021-11-02 17:11] LABS: Calcium 9.2 mg/dL (8.4-10.2); Magnesium 1.8 mg/dL (1.6-2.3); Potassium 4.5 mmol/L (3.5-5.1)
[2021-11-02 17:21] LABS: Anisocytosis Slight; Basophils % (A) 0 %; Eosinophils # (A) 0.2 k/uL (0-0.7); Eosinophils % (A) 3 %; HCT 23.6 % (34.0-46.0); HGB 7.9 gm/dL (11.4-16.0); Lymphocytes # (A) 1.5 k/uL (1.0-4.8); Lymphocytes % (A) 22 %; MCH 29.7 pg (25.0-35.0); MCHC 33.6 g/dL (31.0-37.0); MCV 88.2 fL (80.0-100.0); Monocytes # (A) 0.3 k/uL (0-1.0); Monocytes % (A) 5 %; Neutrophils # (A) 4.7 k/uL (1.3-7.7); Neutrophils % (A) 68 %; Platelet Count 330 k/uL (150-450); Poikilocytosis Slight; RBC 2.68 m/uL (3.80-5.40); RDW 17.7 % (11.5-15.5); WBC 6.9 k/uL (3.8-10.6)
[2021-11-02] MEDS: HYDROcodone/APAP 5-325MG 1 EACH TAB PO PRN (17:44)
--- NOTE | 2021-11-02 20:38 | PN ---
PROGRESS NOTE DATE OF SERVICE: 11/02/2021 CHIEF COMPLAINT: Malignant hypertension, renal failure and uncontrolled diabetes. HISTORY OF PRESENT ILLNESS: This lady's blood sugars have become extremely erratic. Her potassium went up to over 7 and her blood sugar went up to over 700 and she has been slightly nauseated. PHYSICAL EXAMINATION: Chest is clear. Cardiac exam is normal. IMPRESSION: 1. Hyperkalemia. 2. Uncontrolled hyperglycemia. 3. Chronic renal failure, on dialysis. 4. Malignant hypertension. PLAN: Patient will be moved to the intensive care unit and started on insulin drip. Her hyperkalemia will also be addressed. MMODL / IJN: [id number] /
--- NOTE | 2021-11-02 20:48 | MISC ---
MISCELLANOUS REPORT QUERY: Hypertensive emergency. MMODL / IJN: [id number] /
--- NOTE | 2021-11-02 20:48 | MISC ---
MISCELLANOUS REPORT QUERY: Type 1 uncontrolled. MMODL / IJN: [id number] /
[2021-11-02 20:56] LABS: Glucose,Whole Blood 290 mg/dL (75-99)
[2021-11-02] MEDS: HEPARIN SODIUM,PORCINE/PF 5,000 UNIT/0.5 ML SYRINGE SQ SCH ×2 (21:00→21:34)
[2021-11-02] MEDS: LORazepam 2 MG/ML INJ IV PRN (21:34)
[2021-11-02] MEDS: SODIUM CHLORIDE 0.9% 1,000 ML IV SCH (21:35)
[2021-11-03 06:42] LABS: Glucose,Whole Blood >600 mg/dL (75-99)
[2021-11-03] MEDS: CALCIUM ACETATE 667 MG TAB PO SCH ×4 (06:49→16:41)
[2021-11-03] MEDS: carvediloL 12.5 MG TAB PO SCH ×2 (06:49→18:42)
[2021-11-03] MEDS: PANTOPRAZOLE 40 MG TABLET PO SCH (06:49)
[2021-11-03] MEDS: INSULIN ASPART (NovoLOG) 100 UNIT/ML VIAL SQ SCH ×4 (06:49→21:24)
[2021-11-03 06:50] LABS: Glucose,Whole Blood >600 mg/dL (75-99)
[2021-11-03] MEDS: diphenhydrAMINE 50 MG/ML 1 ML VIAL IVP PRN ×5 (06:56→23:57)
[2021-11-03] MEDS: INSULIN DETEMIR (LEVEMIR) 100 UNIT/ML SYR SQ SCH ×2 (07:35→21:23)
[2021-11-03 07:44] LABS: Anisocytosis Slight; Basophils # (A) 0.1 k/uL (0-0.2); Basophils % (A) 1 %; Eosinophils # (A) 0.2 k/uL (0-0.7); Eosinophils % (A) 3 %; HCT 24.9 % (34.0-46.0); Hypochromasia Slight; Lymphocytes # (A) 1.2 k/uL (1.0-4.8); Lymphocytes % (A) 19 %; MCH 30.2 pg (25.0-35.0); MCHC 32.1 g/dL (31.0-37.0); Mean Platelet Volume 9.3; Monocytes # (A) 0.3 k/uL (0-1.0); Monocytes % (A) 5 %; Neutrophils # (A) 4.5 k/uL (1.3-7.7); Neutrophils % (A) 71 %; Platelet Count 328 k/uL (150-450); Poikilocytosis Slight; RBC 2.65 m/uL (3.80-5.40); RDW 17.8 % (11.5-15.5); WBC 6.3 k/uL (3.8-10.6)
[2021-11-03 07:49] LABS: MCV 94.1 fL (80.0-100.0)
[2021-11-03 07:53] LABS: Phosphorus 4.8 mg/dL (2.5-4.5)
[2021-11-03 08:07] LABS: Potassium 6.1 mmol/L (3.5-5.1)
[2021-11-03] MEDS ORDERED: INSULIN ASPART (NovoLOG) 100 UNIT/ML VIAL SQ ONE (08:10)
[2021-11-03 08:14] LABS: Glucose,Whole Blood 464 mg/dL (75-99)
[2021-11-03] MEDS: cloNIDine HCL 0.1 MG TAB PO SCH ×4 (08:14→21:22)
[2021-11-03] MEDS: ISOSORBIDE MONONITRATE ER 30 MG TAB.ER.24H PO SCH (08:16)
[2021-11-03] MEDS: ESCITALOPRAM 20 MG TAB PO SCH (08:16)
[2021-11-03] MEDS: CYANOCOBALAMIN 500 MCG TAB PO SCH (08:16)
[2021-11-03] MEDS: ATORVASTATIN 40 MG TAB PO SCH (08:16)
[2021-11-03] MEDS: HEPARIN SODIUM,PORCINE/PF 5,000 UNIT/0.5 ML SYRINGE SQ SCH ×2 (08:16→21:24)
[2021-11-03] MEDS: ASPIRIN 81 MG PO SCH (08:16)
--- NOTE | 2021-11-03 08:41 | P.PN ---
Subjective Progress Note Date: 11/03/21 11/02/2021, the patient got transferred back to the intensive care unit. We are going to see this patient in consultation. The patient was in a medical floor. She is a type I diabetic and she has also retinopathy and she is legally blind along with neuropathy and she also has end-stage renal disease on hemodialysis 3 times a week. She has had previous CVA and pericardial effusion she has had also multiple admissions to the hospital. During this most recent hospitalization, the patient was having some issues with blood pressure and chest pain. Her blood pressure was quite elevated. This was regulated and the patient got dialyzed and her last dialysis was yesterday. Her chest x-ray was revealing some cardiomegaly and microvascular congestion. The patient transferred to the intensive care unit this morning because of hyperglycemia and the sugar was above 700. The patient also had a potassium level of 7.1 with a sodium level of 127. This was a significant drop compared to yesterday and for that reason the patient is having an emergent dialysis today. She is currently on room air oxygen. She is getting a blood pressure 162/87. She is free of any chest pain. She is maintained on a combination of Coreg, clonidine, Procardia and Nitro-Bid for blood pressure control. Her cardiac rhythm is sinus. On 11/03/2021 patient seen in follow-up in the intensive care unit, this morning she is awake and alert, she has been having intermittent chest discomfort that she describes as chest pressure midsternal and slightly off to the left, no radiation, not associated with diaphoresis, neck or arm discomfort. She states it usually comes on when her blood pressure starts trending up. Current blood pressure is 155/96, sinus rhythm with a rate of 81 BPM, room air pulse ox is 96%, respiratory rate is 23 per minutes. She rates the chest discomfort 6 out of 10. EKG was taken, showing one box elevation in the V2 lead, and ST segment depression and T-wave inversion in the V5 and V6 leads. Troponin level was added to this morning's labs, cardiology consultation is pending. Patient had a hemodialysis treatment yesterday with removal of 3.6 L of fluid, she denies any shortness of breath, lung sounds are clear to auscultation. This morning's labs have an reviewed showing white blood cell count is 6.3, hemoglobin of 8.0, platelet count is 328, sodium is 1:30, potassium 6.1, chloride is 94, CO2 is 19, BUN is 45 and creatinine is 6.08, serum glucose is 616 on this morning's labs, last night her Levemir dose was held, and this morning Levemir was given, and this morning's blood sugar is 464, patient was given 8 units of NovoLog and additional 5 units of NovoLog was given. Objective - Vital Signs Vital signs: Vital Signs Temp 98.8 F 11/03/21 08:00 Pulse 84 11/03/21 08:00 Resp 19 11/03/21 08:00 BP 149/74 11/03/21 08:00 Pulse Ox 96 11/03/21 08:00 FiO2 Intake & Output 11/02/21 11/03/21 11/03/21 18:59 06:59 18:59 Intake Total 600 240 40 Output Total 2500 120 0 Balance -1900 120 40 Intake: IV 160 240 40 Sodium Chloride 0.9% 1, 160 240 40 000 ml @ 20 mls/hr IV . Q24H [facility] Rx#:[id number] Intake, IV Titration 100 Amount Calcium Gluconate in NaCl 100 1 gm In Saline 1 100ml. bag @ 100 mls/hr IVPB ONCE ONE Rx#:[id number] Oral 220 Tube Feeding 120 Output: Urine 120 0 Hemodialysis 2500 Other: Voiding Method Bedside Commode Toilet - Exam GENERAL EXAM: Alert, pleasant, 30-year-old white female, resting in bed, Pulse ox is 97%, comfortable in no apparent distress. HEAD: Normocephalic/atraumatic. EYES: Normal reaction of pupils, equal size. Conjunctiva pink, sclera white. NOSE: Clear with pink turbinates. THROAT: No erythema or exudates. NECK: No masses, no JVD, no thyroid enlargement, no adenopathy. CHEST: No chest wall deformity. Symmetrical expansion. LUNGS: Equal air entry with no crackles, wheeze, rhonchi or dullness. CVS: Regular rate and rhythm, normal S1 and S2, no gallops, no murmurs, no rubs ABDOMEN: Soft, nontender. No hepatosplenomegaly, normal bowel sounds, no guarding or rigidity. EXTREMITIES: No clubbing, no edema, no cyanosis, 2+ pulses and upper and lower extremities. left Arm AV fistula MUSCULOSKELETAL: Muscle strength and tone normal. SPINE: No scoliosis or deformity SKIN: No rashes CENTRAL NERVOUS SYSTEM: Alert and oriented -3. No focal deficits, tone is normal in all 4 extremities. PSYCHIATRIC: Alert and oriented -3. Appropriate affect. Intact judgment and insight. - Labs CBC & Chem 7: 11/03/21 06:59 11/03/21 06:59 Labs: Abnormal Lab Results - Last 24 Hours (Table) 11/02/21 11/02/21 11/02/21 Range/Units 08:54 10:03 12:36 RBC (3.80-5.40) m/uL Hgb (11.4-16.0) gm/dL Hct (34.0-46.0) % RDW (11.5-15.5) % Sodium (137-145) mmol/L Potassium (3.5-5.1) mmol/L Chloride (98-107) mmol/L Carbon Dioxide (22-30) mmol/L BUN (7-17) mg/dL Creatinine (0.52-1.04) mg/dL Glucose (74-99) mg/dL POC Glucose (mg/dL) 446 H 214 H 106 H (75-99) mg/dL Phosphorus (2.5-4.5) mg/dL 11/02/21 11/02/21 11/02/21 Range/Units 16:15 16:32 16:32 RBC 2.68 L (3.80-5.40) m/uL Hgb 7.9 L (11.4-16.0) gm/dL Hct 23.6 L (34.0-46.0) % RDW 17.7 H (11.5-15.5) % Sodium 135 L (137-145) mmol/L Potassium (3.5-5.1) mmol/L Chloride 96 L (98-107) mmol/L Carbon Dioxide (22-30) mmol/L BUN 27 H (7-17) mg/dL Creatinine 3.58 H (0.52-1.04) mg/dL Glucose 185 H (74-99) mg/dL POC Glucose (mg/dL) 189 H (75-99) mg/dL Phosphorus (2.5-4.5) mg/dL 11/02/21 11/03/21 11/03/21 Range/Units 20:54 06:37 06:48 RBC (3.80-5.40) m/uL Hgb (11.4-16.0) gm/dL Hct (34.0-46.0) % RDW (11.5-15.5) % Sodium (137-145) mmol/L Potassium (3.5-5.1) mmol/L Chloride (98-107) mmol/L Carbon Dioxide (22-30) mmol/L BUN (7-17) mg/dL Creatinine (0.52-1.04) mg/dL Glucose (74-99) mg/dL POC Glucose (mg/dL) 290 H >600 H >600 H (75-99) mg/dL Phosphorus (2.5-4.5) mg/dL 11/03/21 11/03/21 11/03/21 Range/Units 06:59 06:59 08:08 RBC 2.65 L (3.80-5.40) m/uL Hgb 8.0 L (11.4-16.0) gm/dL Hct 24.9 L (34.0-46.0) % RDW 17.8 H (11.5-15.5) % Sodium 130 L (137-145) mmol/L Potassium 6.1 H* (3.5-5.1) mmol/L Chloride 94 L (98-107) mmol/L Carbon Dioxide 19 L (22-30) mmol/L BUN 45 H (7-17) mg/dL Creatinine 6.08 H (0.52-1.04) mg/dL Glucose 616 H* (74-99) mg/dL POC Glucose (mg/dL) 464 H (75-99) mg/dL Phosphorus 4.8 H (2.5-4.5) mg/dL Assessment and Plan Plan: Diabetes mellitus type 1 with acute hyperglycemia and brittle blood sugar control. The patient is having a blood sugar above 700. No signs of DKA at this point in time. She is currently on Levemir 10 units twice daily in addition to sliding scale and mealtime insulin Chest pain, rule out ACS Acute hyperkalemia requiring hemodialysis. Hypertensive emergency with subsequent chest discomfort, recovered and the patient's BP is under better control, Mild troponin leak secondary to above Acute pulmonary edema secondary to hypertensive emergency, currently on room air oxygen End-stage renal disease to receive hemodialysis on Monday Acute hyponatremia and likely a pseudo-hyponatremia secondary to hyperglycemia. Anion gap metabolic acidosis Chronic anemia Recent hospitalization for hypertensive emergency, missed dialysis, discharged on 09/23/2021 Recent moderate circumferential pericardial effusion Recent hospitalization for bilateral pneumonia, discharged on 09/06/2021 with Avelox and doxycycline History of CVA/TIA History of COVID-19 infection in May 2021 Plan: Patient has been having on and off episodes of chest pressure We'll obtain a troponin level Obtain cardiology consultation Hemodialysis treatment likely today Nephrology recommendations Blood sugars have remained elevated, Last night Levemir was held We'll give the patient additional 5 units of Humalog in addition to 8 units per sliding scale Continue monitoring blood sugar closely I have personally seen and examined the patient, performed the documentation and the assessment and plan as written. Number of minutes spent on the visit: [10] I have personally seen and examined the patient and reviewed the documentation. I performed a joint evaluation with the nurse practitioner in this evaluation was done more than 20 minutes. I fully agree with the documentation above and the plan of care. The patient will have another session of hemodialysis. Potassium is elevated and blood sugars are elevated today. She did have some brief chest pain which recovered. We'll consult cardiology. We'll try to achieve an undetectable to control. Monitor potassium level. We'll continue to follow. Time with Patient: Less than 30
[2021-11-03] MEDS ORDERED: carvediloL 12.5 MG TAB PO STA (09:21)
--- NOTE | 2021-11-03 09:54 | P.PN ---
Subjective Patient is seen in follow-up for end-stage renal disease. Blood sugar over 600 this morning and potassium level 6.1. Patient denies any complaints. Blood pressure stable. Insulin drip stopped. Vital signs are stable. General: Awake. No acute distress. HEENT: Head exam is unremarkable. LUNGS: Breath sounds decreased. HEART: Rate and Rhythm are regular. ABDOMEN: Soft, no distention. EXTREMITITES: No edema. Objective - Vital Signs Vital signs: Vital Signs Temp 98.8 F 11/03/21 08:00 Pulse 84 11/03/21 08:00 Resp 19 11/03/21 08:00 BP 149/74 11/03/21 08:00 Pulse Ox 96 11/03/21 08:00 FiO2 Intake & Output 11/02/21 11/03/21 11/03/21 18:59 06:59 18:59 Intake Total 600 240 40 Output Total 2500 120 0 Balance -1900 120 40 Intake: IV 160 240 40 Sodium Chloride 0.9% 1, 160 240 40 000 ml @ 20 mls/hr IV . Q24H [facility] Rx#:[id number] Intake, IV Titration 100 Amount Calcium Gluconate in NaCl 100 1 gm In Saline 1 100ml. bag @ 100 mls/hr IVPB ONCE ONE Rx#:[id number] Oral 220 Tube Feeding 120 Output: Urine 120 0 Hemodialysis 2500 Other: Voiding Method Bedside Commode Toilet - Labs CBC & Chem 7: 11/03/21 06:59 11/03/21 06:59 Labs: Abnormal Lab Results - Last 24 Hours (Table) 11/02/21 11/02/21 11/02/21 Range/Units 10:03 12:36 16:15 RBC (3.80-5.40) m/uL Hgb (11.4-16.0) gm/dL Hct (34.0-46.0) % RDW (11.5-15.5) % Sodium (137-145) mmol/L Potassium (3.5-5.1) mmol/L Chloride (98-107) mmol/L Carbon Dioxide (22-30) mmol/L BUN (7-17) mg/dL Creatinine (0.52-1.04) mg/dL Glucose (74-99) mg/dL POC Glucose (mg/dL) 214 H 106 H 189 H (75-99) mg/dL Phosphorus (2.5-4.5) mg/dL 11/02/21 11/02/21 11/02/21 Range/Units 16:32 16:32 20:54 RBC 2.68 L (3.80-5.40) m/uL Hgb 7.9 L (11.4-16.0) gm/dL Hct 23.6 L (34.0-46.0) % RDW 17.7 H (11.5-15.5) % Sodium 135 L (137-145) mmol/L Potassium (3.5-5.1) mmol/L Chloride 96 L (98-107) mmol/L Carbon Dioxide (22-30) mmol/L BUN 27 H (7-17) mg/dL Creatinine 3.58 H (0.52-1.04) mg/dL Glucose 185 H (74-99) mg/dL POC Glucose (mg/dL) 290 H (75-99) mg/dL Phosphorus (2.5-4.5) mg/dL 11/03/21 11/03/21 11/03/21 Range/Units 06:37 06:48 06:59 RBC 2.65 L (3.80-5.40) m/uL Hgb 8.0 L (11.4-16.0) gm/dL Hct 24.9 L (34.0-46.0) % RDW 17.8 H (11.5-15.5) % Sodium (137-145) mmol/L Potassium (3.5-5.1) mmol/L Chloride (98-107) mmol/L Carbon Dioxide (22-30) mmol/L BUN (7-17) mg/dL Creatinine (0.52-1.04) mg/dL Glucose (74-99) mg/dL POC Glucose (mg/dL) >600 H >600 H (75-99) mg/dL Phosphorus (2.5-4.5) mg/dL 11/03/21 11/03/21 Range/Units 06:59 08:08 RBC (3.80-5.40) m/uL Hgb (11.4-16.0) gm/dL Hct (34.0-46.0) % RDW (11.5-15.5) % Sodium 130 L (137-145) mmol/L Potassium 6.1 H* (3.5-5.1) mmol/L Chloride 94 L (98-107) mmol/L Carbon Dioxide 19 L (22-30) mmol/L BUN 45 H (7-17) mg/dL Creatinine 6.08 H (0.52-1.04) mg/dL Glucose 616 H* (74-99) mg/dL POC Glucose (mg/dL) 464 H (75-99) mg/dL Phosphorus 4.8 H (2.5-4.5) mg/dL Assessment and Plan Plan: Assessment: 1. End-stage renal disease maintained on hemodialysis on Monday schedule. 2. Hypertensive emergency with volume overload. Improved. 3. Acute on chronic diastolic CHF with moderate to severe tricuspid regurgitation and pulmonary hypertension. 4. History of pericardial effusion. 5. Chronic hyperkalemia secondary to chronic kidney disease and hyperglycemia. Potassium 6.1 today due to hyperglycemia. 6. Diabetes mellitus. 7. 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 8. Anemia of chronic kidney disease. Iron replete. On Aranesp. 9. Hypertonic hyponatremia secondary to hyperglycemia. Corrected sodium in the normal range. Plan: 1 g IV calcium gluconate now. Blood sugar control. Hemodialysis today. Maintain current antihypertensives. Avoid hydralazine and minoxidil due to pericardial effusion. Avoid CHANDA inhibitor or angiotensin receptor blockers due to chronic hyperkalemia. Patient has been strongly advised to be compliant with her home medications and dialysis treatments outpatient. Life-threatening risks of noncompliance, including , have been discussed with the patient with times.
[2021-11-03] MEDS ORDERED: CALCIUM GLUCONATE IN NACL 1 GM in SALINE 1 100ML.BAG IVPB ONE (10:00)
[2021-11-03 10:17] VITALS: BMI 20.5
[2021-11-03 11:17] LABS: Glucose,Whole Blood 63 mg/dL (75-99)
[2021-11-03 11:39] LABS: Glucose,Whole Blood 103 mg/dL (75-99)
[2021-11-03] MEDS: LORazepam 2 MG/ML INJ IV PRN ×2 (13:17→20:24)
--- NOTE | 2021-11-03 14:43 | PN ---
PROGRESS NOTE CHIEF COMPLAINT: Chronic renal failure, uncontrolled diabetes and hyperkalemia. HISTORY OF PRESENT ILLNESS: This lady is about the same. Blood sugars are still very erratic. She was dialyzed today. She does not seem to be having any other difficulties. PHYSICAL EXAM: Blood pressure is fluctuating, but she has had one as high as 156/102. Laboratory studies reveal hemoglobin of 8, and her potassium today was 6.1. Blood sugar was 616 again. This is now down to 63. PHYSICAL EXAM: Skin is dry. Head, ears, eyes, nose, mouth and throat are unchanged. Chest is clear. Cardiac exam is normal. Abdomen is soft and flat. IMPRESSION: 1. Stage 5 CKD. 2. Hyperkalemia. 3. Uncontrolled type 1 insulin-dependent diabetes mellitus. PLAN: No change in program and continue to follow with Pulmonology and Nephrology. MMODL / IJN: [id number] /
[2021-11-03 16:23] LABS: Glucose,Whole Blood 136 mg/dL (75-99)
[2021-11-03] MEDS: SODIUM CHLORIDE 0.9% 1,000 ML IV SCH (20:20)
[2021-11-03 21:17] LABS: Glucose,Whole Blood 211 mg/dL (75-99)
[2021-11-03] MEDS: MELATONIN 5 MG TABLET PO PRN (21:22)
[2021-11-04 01:47] LABS: Glucose,Whole Blood 115 mg/dL (75-99)
[2021-11-04] MEDS: LORazepam 2 MG/ML INJ IV PRN (03:09)
[2021-11-04] MEDS: PANTOPRAZOLE 40 MG TABLET PO SCH (06:59)
[2021-11-04] MEDS: CALCIUM ACETATE 667 MG TAB PO SCH ×3 (06:59→16:53)
[2021-11-04] MEDS: carvediloL 12.5 MG TAB PO SCH ×2 (06:59→16:53)
[2021-11-04 07:04] LABS: Glucose,Whole Blood 161 mg/dL (75-99)
[2021-11-04] MEDS: INSULIN ASPART (NovoLOG) 100 UNIT/ML VIAL SQ SCH ×4 (07:04→20:14)
[2021-11-04] MEDS: HEPARIN SODIUM,PORCINE/PF 5,000 UNIT/0.5 ML SYRINGE SQ SCH ×2 (07:49→20:13)
[2021-11-04] MEDS: INSULIN DETEMIR (LEVEMIR) 100 UNIT/ML SYR SQ SCH ×2 (07:49→20:13)
[2021-11-04] MEDS: diphenhydrAMINE 50 MG/ML 1 ML VIAL IVP PRN ×5 (07:50→23:52)
[2021-11-04] MEDS: ATORVASTATIN 40 MG TAB PO SCH (07:51)
[2021-11-04] MEDS: ESCITALOPRAM 20 MG TAB PO SCH (07:51)
[2021-11-04] MEDS: CYANOCOBALAMIN 500 MCG TAB PO SCH (07:51)
[2021-11-04] MEDS: ASPIRIN 81 MG PO SCH (07:51)
--- NOTE | 2021-11-04 08:32 | P.PN ---
Subjective Progress Note Date: 11/04/21 11/02/2021, the patient got transferred back to the intensive care unit. We are going to see this patient in consultation. The patient was in a medical floor. She is a type I diabetic and she has also retinopathy and she is legally blind along with neuropathy and she also has end-stage renal disease on hemodialysis 3 times a week. She has had previous CVA and pericardial effusion she has had also multiple admissions to the hospital. During this most recent hospitalization, the patient was having some issues with blood pressure and chest pain. Her blood pressure was quite elevated. This was regulated and the patient got dialyzed and her last dialysis was yesterday. Her chest x-ray was revealing some cardiomegaly and microvascular congestion. The patient transferred to the intensive care unit this morning because of hyperglycemia and the sugar was above 700. The patient also had a potassium level of 7.1 with a sodium level of 127. This was a significant drop compared to yesterday and for that reason the patient is having an emergent dialysis today. She is currently on room air oxygen. She is getting a blood pressure 162/87. She is free of any chest pain. She is maintained on a combination of Coreg, clonidine, Procardia and Nitro-Bid for blood pressure control. Her cardiac rhythm is sinus. On 11/03/2021 patient seen in follow-up in the intensive care unit, this morning she is awake and alert, she has been having intermittent chest discomfort that she describes as chest pressure midsternal and slightly off to the left, no radiation, not associated with diaphoresis, neck or arm discomfort. She states it usually comes on when her blood pressure starts trending up. Current blood pressure is 155/96, sinus rhythm with a rate of 81 BPM, room air pulse ox is 96%, respiratory rate is 23 per minutes. She rates the chest discomfort 6 out of 10. EKG was taken, showing one box elevation in the V2 lead, and ST segment depression and T-wave inversion in the V5 and V6 leads. Troponin level was added to this morning's labs, cardiology consultation is pending. Patient had a hemodialysis treatment yesterday with removal of 3.6 L of fluid, she denies any shortness of breath, lung sounds are clear to auscultation. This morning's labs have an reviewed showing white blood cell count is 6.3, hemoglobin of 8.0, platelet count is 328, sodium is 1:30, potassium 6.1, chloride is 94, CO2 is 19, BUN is 45 and creatinine is 6.08, serum glucose is 616 on this morning's labs, last night her Levemir dose was held, and this morning Levemir was given, and this morning's blood sugar is 464, patient was given 8 units of NovoLog and additional 5 units of NovoLog was given. 11/04/2021, the patient's postdialysis from yesterday with a total of 2.2 L of fluid being removed. Potassium level is currently normal limits currently at 4.4. Anticipate the last set of labs from yesterday. Repeat labs from today still pending for now. Currently the patient on oxygen. Blood sugar from this morning is at 161. Note that the patient is currently on Levemir insulin twice a day dosing and she's taking 10 mg of Levemir twice a day in addition to NovoLog with a sliding scale coverage. Cardiology will also see the patient has the patient was having episodic chest pain and the troponin that was added yesterday was normal at 0.0 23. No chest pain. No significant shortness of breath which is hemodynamically stable. Morning blood pressure is 157/91. Antihypertensive medications are currently on board and the patient is currently on clonidine 0.3 mg 3 times a day and she is also on Coreg 50 mg twice a day and Procardia 120 mg by mouth daily. He is tolerating his diet. No nausea. No vomiting. No emesis. No Altered mentation. No other significant events overnight. Objective - Vital Signs Vital signs: Vital Signs Temp 98.8 F 11/04/21 04:00 Pulse 78 11/04/21 07:00 Resp 20 11/04/21 07:00 BP 144/80 11/04/21 07:00 Pulse Ox 95 11/04/21 02:00 FiO2 Intake & Output 11/03/21 11/04/21 11/04/21 18:59 06:59 18:59 Intake Total 440 90 220 Output Total 2200 0 Balance -1760 90 220 Weight 54.1 kg Intake: IV 240 Sodium Chloride 0.9% 1, 240 000 ml @ 20 mls/hr IV . Q24H [facility] Rx#:[id number] Oral 90 220 Tube Feeding 200 Output: Urine 0 0 Hemodialysis 2200 Other: Voiding Method Toilet - Exam GENERAL EXAM: Alert, pleasant, 30-year-old white female, resting in bed, Pulse ox is 97%, comfortable in no apparent distress. HEAD: Normocephalic/atraumatic. EYES: Normal reaction of pupils, equal size. Conjunctiva pink, sclera white. NOSE: Clear with pink turbinates. THROAT: No erythema or exudates. NECK: No masses, no JVD, no thyroid enlargement, no adenopathy. CHEST: No chest wall deformity. Symmetrical expansion. LUNGS: Equal air entry with no crackles, wheeze, rhonchi or dullness. CVS: Regular rate and rhythm, normal S1 and S2, no gallops, no murmurs, no rubs ABDOMEN: Soft, nontender. No hepatosplenomegaly, normal bowel sounds, no guarding or rigidity. EXTREMITIES: No clubbing, no edema, no cyanosis, 2+ pulses and upper and lower extremities. left Arm AV fistula MUSCULOSKELETAL: Muscle strength and tone normal. SPINE: No scoliosis or deformity SKIN: No rashes CENTRAL NERVOUS SYSTEM: Alert and oriented -3. No focal deficits, tone is nor mal in all 4 extremities. PSYCHIATRIC: Alert and oriented -3. Appropriate affect. Intact judgment and insight. - Labs CBC & Chem 7: 11/03/21 06:59 11/03/21 19:24 Labs: Abnormal Lab Results - Last 24 Hours (Table) 11/03/21 11/03/21 11/03/21 Range/Units 06:59 08:08 11:15 Sodium 130 L (137-145) mmol/L Potassium 6.1 H* (3.5-5.1) mmol/L Chloride 94 L (98-107) mmol/L Carbon Dioxide 19 L (22-30) mmol/L BUN 45 H (7-17) mg/dL Creatinine 6.08 H (0.52-1.04) mg/dL Glucose 616 H* (74-99) mg/dL POC Glucose (mg/dL) 464 H 63 L (75-99) mg/dL Phosphorus 4.8 H (2.5-4.5) mg/dL 11/03/21 11/03/21 11/03/21 Range/Units 11:38 16:22 21:15 Sodium (137-145) mmol/L Potassium (3.5-5.1) mmol/L Chloride (98-107) mmol/L Carbon Dioxide (22-30) mmol/L BUN (7-17) mg/dL Creatinine (0.52-1.04) mg/dL Glucose (74-99) mg/dL POC Glucose (mg/dL) 103 H 136 H 211 H (75-99) mg/dL Phosphorus (2.5-4.5) mg/dL 11/04/21 11/04/21 Range/Units 01:45 07:03 Sodium (137-145) mmol/L Potassium (3.5-5.1) mmol/L Chloride (98-107) mmol/L Carbon Dioxide (22-30) mmol/L BUN (7-17) mg/dL Creatinine (0.52-1.04) mg/dL Glucose (74-99) mg/dL POC Glucose (mg/dL) 115 H 161 H (75-99) mg/dL Phosphorus (2.5-4.5) mg/dL Assessment and Plan Plan: Diabetes mellitus type 1 with acute hyperglycemia and brittle blood sugar control. Blood the blood sugars under better control the patient remains on Levemir insulin 10 units twice a day along with a sliding scale coverage. Chest pain, rule out ACS, negative troponins, awaiting a cardiac evaluation Acute hyperkalemia requiring hemodialysis. The potassium level improved and the patient potassium normalized post dialysis and repeat levels are pending from today Hypertensive emergency with subsequent chest discomfort, recovered and the patient's BP is under better control, Mild troponin leak secondary to above Acute pulmonary edema secondary to hypertensive emergency, currently on room air oxygen End-stage renal disease to receive hemodialysis on Monday Acute hyponatremia and likely a pseudo-hyponatremia secondary to hyperglycemia. Anion gap metabolic acidosis Chronic anemia Recent hospitalization for hypertensive emergency, missed dialysis, discharged on 09/23/2021 Recent moderate circumferential pericardial effusion Recent hospitalization for bilateral pneumonia, discharged on 09/06/2021 with Avelox and doxycycline History of CVA/TIA History of COVID-19 infection in May 2021 Plan: Clinically stable Blood sugar and blood pressure is under better control for now. We'll repeat electrolytes. Cardiology evaluation is pending. She is clear of any chest pain for now. Continue hemodialysis per nephrology Increase Ativan to 1 mg every 8 hours as needed for anxiety by mouth Continue Lexapro She is currently on room air oxygen We'll continue to follow. The patient can be transferred out of the intensive care unit.
--- NOTE | 2021-11-04 09:22 | P.PN ---
Subjective Progress Note Date: 11/04/21 The patient is a 30-year-old female who is currently admitted to the hospital with hypertensive crisis and chest pains. She was transferred to the ICU overnight with hypertension. Dr. Hairston increased her carvedilol to 50 mg twice daily, however she has refused her antihypertensive regimen this morning as she will likely undergo dialysis. Medication regimen reviewed in detail with the patient. She is likely having drastic swings in her blood pressure as she is holding all antihypertensives on the day of dialysis and then becoming hypertensive the following day. We recommend that she only hold her calcium channel rox and Catapres on the day of dialysis and continue her carvedilol. The patient was interviewed and examined sitting in the ICU. She states she is quite anxious at this time, however she is not currently having any chest pains. No shortness of breath. She denies any heart racing or fluttering. GENERAL: Well-appearing. Anxious. NECK: Supple without JVD or thyromegaly. LUNGS: Breath sounds clear to auscultation bilaterally. Respiration equal and unlabored. No wheezes, rales or rhonchi. HEART: Regular rate and rhythm. Systolic murmur. rubs or gallops. S1 and S2 he isabela. EXTREMITIES: Normal range of motion, no edema. No clubbing or cyanosis. Peripheral pulses intact and strong. VITALS: Blood pressure 147/106, pulse 80, respiratory rate 22, SpO2 96% on room air TELEMETRY: Sinus rhythm overnight IMPRESSION: Hypertensive urgency Chest pain, secondary to hypertension End-stage renal disease on dialysis Chronic diastolic heart failure, secondary to end-stage renal disease Uncontrolled diabetes PLAN: Discontinue Imdur May hold Catapres and Procardia the day of dialysis. Please continue Coreg. No plan for stress testing at this time Further recommendations to be based upon clinical course I am dictating on behalf of Dr Rico Hairston's history/physical and assessment/plan. Objective - Vital Signs Vital signs: Vital Signs Temp 98.8 F 11/04/21 04:00 Pulse 80 11/04/21 08:00 Resp 22 11/04/21 08:00 BP 147/106 11/04/21 08:00 Pulse Ox 96 11/04/21 08:00 FiO2 Intake & Output 06/08/22 06/09/22 06/09/22 18:59 06:59 18:59 Intake Total 440 90 220 Output Total 2200 0 Balance -1760 90 220 Weight 54.1 kg Intake: IV 240 Sodium Chloride 0.9% 1, 240 000 ml @ 20 mls/hr IV . Q24H [facility] Rx#:[id number] Oral 90 220 Tube Feeding 200 Output: Urine 0 0 Hemodialysis 2200 Other: Voiding Method Toilet - Labs CBC & Chem 7: 11/03/21 06:59 11/03/21 19:24 Labs: Abnormal Lab Results - Last 24 Hours (Table) 11/03/21 11/03/21 11/03/21 Range/Units 11:15 11:38 16:22 POC Glucose (mg/dL) 63 L 103 H 136 H (75-99) mg/dL 11/03/21 11/04/21 11/04/21 Range/Units 21:15 01:45 07:03 POC Glucose (mg/dL) 211 H 115 H 161 H (75-99) mg/dL
[2021-11-04] MEDS: LORazepam 1 MG TAB PO PRN ×2 (09:32→17:47)
--- NOTE | 2021-11-04 09:37 | P.PN ---
Subjective Patient is seen in follow-up for end-stage renal disease. Morning labs pending. Patient denies any complaints. Has been eating. Vital signs are stable. General: Awake. No acute distress. HEENT: Head exam is unremarkable. LUNGS: Breath sounds decreased. HEART: Rate and Rhythm are regular. ABDOMEN: Soft, no distention. EXTREMITITES: No edema. Objective - Vital Signs Vital signs: Vital Signs Temp 98.8 F 11/04/21 04:00 Pulse 80 11/04/21 08:00 Resp 22 11/04/21 08:00 BP 147/106 11/04/21 08:00 Pulse Ox 96 11/04/21 08:00 FiO2 Intake & Output 11/03/21 11/04/21 11/04/21 18:59 06:59 18:59 Intake Total 440 90 220 Output Total 2200 0 Balance -1760 90 220 Weight 54.1 kg Intake: IV 240 Sodium Chloride 0.9% 1, 240 000 ml @ 20 mls/hr IV . Q24H [facility] Rx#:[id number] Oral 90 220 Tube Feeding 200 Output: Urine 0 0 Hemodialysis 2200 Other: Voiding Method Toilet - Labs CBC & Chem 7: 11/03/21 06:59 11/03/21 19:24 Labs: Abnormal Lab Results - Last 24 Hours (Table) 11/03/21 11/03/21 11/03/21 Range/Units 11:15 11:38 16:22 POC Glucose (mg/dL) 63 L 103 H 136 H (75-99) mg/dL 11/03/21 11/04/21 11/04/21 Range/Units 21:15 01:45 07:03 POC Glucose (mg/dL) 211 H 115 H 161 H (75-99) mg/dL Assessment and Plan Plan: Assessment: 1. End-stage renal disease maintained on hemodialysis on Monday schedule. 2. Hypertensive emergency with volume overload. Improved. 3. Acute on chronic diastolic CHF with moderate to severe tricuspid regurgitation and pulmonary hypertension. 4. History of pericardial effusion. 5. Chronic hyperkalemia secondary to chronic kidney disease and hyperglycemia. Potassium 6.1 today due to hyperglycemia. 6. Diabetes mellitus. 7. 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 8. Anemia of chronic kidney disease. Iron replete. On Aranesp. 9. Hypertonic hyponatremia secondary to hyperglycemia. Corrected sodium in the normal range. Plan: Short hemodialysis treatment today mostly for ultrafiltration. Plan for another treatment tomorrow. Blood sugar control. Maintain current antihypertensives. Avoid hydralazine and minoxidil due to pericardial effusion. Avoid CHANDA inhibitor or angiotensin receptor blockers due to chronic hyperkal emia. Patient has been strongly advised to be compliant with her home medications and dialysis treatments outpatient. Life-threatening risks of noncompliance, including , have been discussed with the patient with times. Morning labs pending.
[2021-11-04 10:01] LABS: Anisocytosis Slight; Basophils % (A) 1 %; Eosinophils # (A) 0.2 k/uL (0-0.7); Eosinophils % (A) 2 %; HCT 24.2 % (34.0-46.0); Lymphocytes % (A) 14 %; MCH 30.6 pg (25.0-35.0); MCHC 33.1 g/dL (31.0-37.0); MCV 92.3 fL (80.0-100.0); Macrocytosis Slight; Mean Platelet Volume 8.7; Monocytes # (A) 0.3 k/uL (0-1.0); Monocytes % (A) 4 %; Neutrophils # (A) 5.7 k/uL (1.3-7.7); Neutrophils % (A) 78 %; Platelet Count 296 k/uL (150-450); Poikilocytosis Slight; RBC 2.62 m/uL (3.80-5.40); WBC 7.4 k/uL (3.8-10.6)
[2021-11-04 10:06] LABS: Albumin 4.2 g/dL (3.5-5.0); Potassium 4.8 mmol/L (3.5-5.1); Total Bilirubin 0.4 mg/dL (0.2-1.3); Total Protein 6.6 g/dL (6.3-8.2)
[2021-11-04 11:41] LABS: Glucose,Whole Blood 156 mg/dL (75-99)
[2021-11-04] MEDS: cloNIDine HCL 0.1 MG TAB PO SCH ×3 (11:51→20:14)
[2021-11-04 16:32] LABS: Glucose,Whole Blood 111 mg/dL (75-99)
[2021-11-04 20:11] LABS: Glucose,Whole Blood 355 mg/dL (75-99)
[2021-11-04] MEDS: SODIUM CHLORIDE 0.9% 1,000 ML IV SCH (20:13)
[2021-11-04] MEDS: MELATONIN 5 MG TABLET PO PRN (20:14)
--- NOTE | 2021-11-04 20:16 | PN ---
PROGRESS NOTE CHIEF COMPLAINT: Malignant hypertension and renal failure with uncontrolled diabetes. HISTORY OF PRESENT ILLNESS: This lady is doing fairly well, but her blood pressure is still bouncing around as are her blood sugars. She has had no vomiting. Dialysis continues. PHYSICAL EXAMINATION: She appears to be chronically ill, slightly dehydrated. Head, ears, eyes, nose and mouth are normal. Chest is clear. Cardiac exam is normal. Abdomen is soft. IMPRESSION: 1. Malignant hypertension. 2. End-stage renal disease on dialysis. 3. Uncontrolled insulin-dependent diabetes mellitus. PLAN: Continue to progress activity as well as management of her diabetes and she can be moved out of the unit when a bed is available. MMODL / IJN: [id number] /
[2021-11-04] MEDS ORDERED: amLODIPine 10 MG TAB PO STA (21:37)
[2021-11-04] MEDS ORDERED: HYDROmorphone 0.5 MG/0.5 ML SYRINGE IVP STA (21:40)
[2021-11-04 22:26] LABS: Glucose,Whole Blood 148 mg/dL (75-99)
[2021-11-04] MEDS ORDERED: cloNIDine HCL 0.2 MG TAB PO STA (23:47)
[2021-11-04] MEDS: HYDROcodone/APAP 5-325MG 1 EACH TAB PO PRN (23:52)
[2021-11-05] MEDS: LORazepam 1 MG TAB PO PRN ×3 (00:58→20:40)
[2021-11-05 01:03] LABS: Glucose,Whole Blood 56 mg/dL (75-99)
[2021-11-05 01:32] LABS: Glucose,Whole Blood 79 mg/dL (75-99)
[2021-11-05] MEDS ORDERED: NITROPRUSSIDE 50 MG in DEXTROSE 5% IN WATER 250 ML IV ONE ×2 (01:43)
[2021-11-05] MEDS: HYDROcodone/APAP 5-325MG 1 EACH TAB PO PRN (01:59)
[2021-11-05 04:47] LABS: Glucose,Whole Blood 43 mg/dL (75-99)
[2021-11-05] MEDS: diphenhydrAMINE 50 MG/ML 1 ML VIAL IVP PRN ×4 (05:04→18:36)
[2021-11-05 05:10] LABS: Glucose,Whole Blood 63 mg/dL (75-99)
[2021-11-05 05:31] LABS: Glucose,Whole Blood 76 mg/dL (75-99)
[2021-11-05] MEDS: INSULIN ASPART (NovoLOG) 100 UNIT/ML VIAL SQ SCH ×4 (06:25→20:39)
[2021-11-05] MEDS: carvediloL 12.5 MG TAB PO SCH ×2 (06:27→16:29)
[2021-11-05] MEDS: CALCIUM ACETATE 667 MG TAB PO SCH ×3 (06:27→16:28)
[2021-11-05] MEDS: PANTOPRAZOLE 40 MG TABLET PO SCH (06:27)
--- NOTE | 2021-11-05 09:14 | P.PN ---
Subjective Progress Note Date: 11/05/21 11/02/2021, the patient got transferred back to the intensive care unit. We are going to see this patient in consultation. The patient was in a medical floor. She is a type I diabetic and she has also retinopathy and she is legally blind along with neuropathy and she also has end-stage renal disease on hemodialysis 3 times a week. She has had previous CVA and pericardial effusion she has had also multiple admissions to the hospital. During this most recent hospitalization, the patient was having some issues with blood pressure and chest pain. Her blood pressure was quite elevated. This was regulated and the patient got dialyzed and her last dialysis was yesterday. Her chest x-ray was revealing some cardiomegaly and microvascular congestion. The patient transferred to the intensive care unit this morning because of hyperglycemia and the sugar was above 700. The patient also had a potassium level of 7.1 with a sodium level of 127. This was a significant drop compared to yesterday and for that reason the patient is having an emergent dialysis today. She is currently on room air oxygen. She is getting a blood pressure 162/87. She is free of any chest pain. She is maintained on a combination of Coreg, clonidine, Procardia and Nitro-Bid for blood pressure control. Her cardiac rhythm is sinus. On 11/03/2021 patient seen in follow-up in the intensive care unit, this morning she is awake and alert, she has been having intermittent chest discomfort that she describes as chest pressure midsternal and slightly off to the left, no radiation, not associated with diaphoresis, neck or arm discomfort. She states it usually comes on when her blood pressure starts trending up. Current blood pressure is 155/96, sinus rhythm with a rate of 81 BPM, room air pulse ox is 96%, respiratory rate is 23 per minutes. She rates the chest discomfort 6 out of 10. EKG was taken, showing one box elevation in the V2 lead, and ST segment depression and T-wave inversion in the V5 and V6 leads. Troponin level was added to this morning's labs, cardiology consultation is pending. Patient had a hemodialysis treatment yesterday with removal of 3.6 L of fluid, she denies any shortness of breath, lung sounds are clear to auscultation. This morning's labs have an reviewed showing white blood cell count is 6.3, hemoglobin of 8.0, platelet count is 328, sodium is 1:30, potassium 6.1, chloride is 94, CO2 is 19, BUN is 45 and creatinine is 6.08, serum glucose is 616 on this morning's labs, last night her Levemir dose was held, and this morning Levemir was given, and this morning's blood sugar is 464, patient was given 8 units of NovoLog and additional 5 units of NovoLog was given. 11/04/2021, the patient's postdialysis from yesterday with a total of 2.2 L of fluid being removed. Potassium level is currently normal limits currently at 4.4. Anticipate the last set of labs from yesterday. Repeat labs from today still pending for now. Currently the patient on oxygen. Blood sugar from this morning is at 161. Note that the patient is currently on Levemir insulin twice a day dosing and she's taking 10 mg of Levemir twice a day in addition to NovoLog with a sliding scale coverage. Cardiology will also see the patient has the patient was having episodic chest pain and the troponin that was added yesterday was normal at 0.0 23. No chest pain. No significant shortness of breath which is hemodynamically stable. Morning blood pressure is 157/91. Antihypertensive medications are currently on board and the patient is currently on clonidine 0.3 mg 3 times a day and she is also on Coreg 50 mg twice a day and Procardia 120 mg by mouth daily. He is tolerating his diet. No nausea. No vomiting. No emesis. No Altered mentation. No other significant events overnight. 11/05/2021, patient is being seen for a follow-up. She is uncomfortable and she is having chest pain and typically she gets chest pain with elevated blood pressures. As of last night, the patient had significant hypertension. The blood pressure went up to systolic blood pressures are above 200. The patient received additional dose of clonidine 0.3 mg and amlodipine 10 mg and another 0.2 clonidine and the blood pressure continued to be elevated. At that point, the patient was started on nipride currently running at 1.5 mcg/kg per minute. Blood pressure currently is around 161/108. The patient has is undergoing hemodialysis and she is tolerating the dialysis well. Symptoms of her chest pain, the patient received [place] and she'll be given Dilaudid for pain control. No acute EKG changes. No altered mentation. No cardiac arrhythmias. No nausea or emesis. No headaches. No focal neurological deficits. As far as her blood sugar control, her blood sugars have been all over the place. There has been significant fluctuation in blood sugar and it was as high as 355 and dropped down to 54 at around midnight. She was given fluid or hypoglycemia and the subsequent blood sugars came at 78 and later on down to 46. And most recent blood sugar is 76. She remains on Levemir insulin and she is currently on 10 units twice a day. He is also on a sliding scale coverage. As mentioned, her blood sugar has been very brittle and hard to control. Otherwise, the rest of blood work from today still pending for now. In terms of her antihypertensive medication, the patient is currently on Coreg 50 mg twice a day, clonidine 0.3 mg 3 times a day, and Procardia XL 120 mg by mouth daily. Objective - Vital Signs Vital signs: Vital Signs Temp 98 F 11/05/21 04:00 Pulse 72 11/05/21 07:00 Resp 26 H 11/05/21 07:00 BP 155/101 11/05/21 07:00 Pulse Ox 95 11/05/21 07:00 FiO2 Intake & Output 11/04/21 11/05/21 11/05/21 18:59 06:59 18:59 Intake Total 2020 44.955 Output Total 2700 0 0 Balance -680 44.955 0 Intake: Intake, IV Titration 44.955 Amount Nitroprusside 50 mg In 44.955 Dextrose 5% in Water 250 ml @ 8.1 mls/hr IV .Q24H [facility] Rx#:[id number] Oral 1320 Hemodialysis 700 Output: Urine 0 0 0 Hemodialysis 2700 Other: Voiding Method Toilet Toilet # Voids 1 - Exam GENERAL EXAM: Alert, pleasant, 30-year-old white female, resting in bed, Pulse ox is 97%, comfortable in no apparent distress. HEAD: Normocephalic/atraumatic. EYES: Normal reaction of pupils, equal size. Conjunctiva pink, sclera white. NOSE: Clear with pink turbinates. THROAT: No erythema or exudates. NECK: No masses, no JVD, no thyroid enlargement, no adenopathy. CHEST: No chest wall deformity. Symmetrical expansion. LUNGS: Equal air entry with no crackles, wheeze, rhonchi or dullness. CVS: Regular rate and rhythm, normal S1 and S2, no gallops, no murmurs, no rubs ABDOMEN: Soft, nontender. No hepatosplenomegaly, normal bowel sounds, no guarding or rigidity. EXTREMITIES: No clubbing, no edema, no cyanosis, 2+ pulses and upper and lower extremities. left Arm AV fistula MUSCULOSKELETAL: Muscle strength and tone normal. SPINE: No scoliosis or deformity SKIN: No rashes CENTRAL NERVOUS SYSTEM: Alert and oriented -3. No focal deficits, tone is normal in all 4 extremities. PSYCHIATRIC: Alert and oriented -3. Appropriate affect. Intact judgment and insight. - Labs CBC & Chem 7: 11/04/21 09:24 11/04/21 09:24 Labs: Abnormal Lab Results - Last 24 Hours (Table) 11/04/21 11/04/21 11/04/21 Range/Units 09:24 09:24 11:40 RBC 2.62 L (3.80-5.40) m/uL Hgb 8.0 L (11.4-16.0) gm/dL Hct 24.2 L (34.0-46.0) % RDW 19.0 H (11.5-15.5) % Sodium 134 L (137-145) mmol/L Chloride 96 L (98-107) mmol/L BUN 37 H (7-17) mg/dL Creatinine 4.76 H (0.52-1.04) mg/dL Glucose 202 H (74-99) mg/dL POC Glucose (mg/dL) 156 H (75-99) mg/dL Alkaline Phosphatase 141 H (38-126) U/L 11/04/21 11/04/21 11/04/21 Range/Units 16:31 20:10 22:25 RBC (3.80-5.40) m/uL Hgb (11.4-16.0) gm/dL Hct (34.0-46.0) % RDW (11.5-15.5) % Sodium (137-145) mmol/L Chloride (98-107) mmol/L BUN (7-17) mg/dL Creatinine (0.52-1.04) mg/dL Glucose (74-99) mg/dL POC Glucose (mg/dL) 111 H 355 H 148 H (75-99) mg/dL Alkaline Phosphatase (38-126) U/L 11/05/21 11/05/21 11/05/21 Range/Units 01:02 04:46 05:08 RBC (3.80-5.40) m/uL Hgb (11.4-16.0) gm/dL Hct (34.0-46.0) % RDW (11.5-15.5) % Sodium (137-145) mmol/L Chloride (98-107) mmol/L BUN (7-17) mg/dL Creatinine (0.52-1.04) mg/dL Glucose (74-99) mg/dL POC Glucose (mg/dL) 56 L 43 L 63 L (75-99) mg/dL Alkaline Phosphatase (38-126) U/L Assessment and Plan Plan: Diabetes mellitus type 1 with acute hyperglycemia and brittle blood sugar control. Blood the blood sugars under better control the patient remains on Levemir insulin 10 units twice a day along with a sliding scale coverage. Overnight, the patient had low blood sugars and one episode of hypoglycemia. The Levemir maintenance dose will be modified and the dose will be dropped to avoid any further episodes of hypoglycemia. Chest pain, rule out ACS, negative troponins, echo evaluation was completed. The echo was also completed. The echo cardiac exam showed a hypertensive heart disease. Ejection fraction of around 50-55%. Moderate increase in the LV wall thickness related to chronic hypertension there was also mild pulmonary hy pertension. Acute hyperkalemia requiring hemodialysis. The potassium level improved and the patient potassium normalized post dialysis Hypertensive emergency with subsequent chest discomfort, recovered and the patient's BP is elevated this morning and the patient is currently on nitride drip. Mild troponin leak secondary to above Acute pulmonary edema secondary to hypertensive emergency, currently on room air oxygen End-stage renal disease to receive hemodialysis on Monday Acute hyponatremia and likely a pseudo-hyponatremia secondary to hyperglycemia. Anion gap metabolic acidosis Chronic anemia Recent hospitalization for hypertensive emergency, missed dialysis, discharged on 09/23/2021 Recent moderate circumferential pericardial effusion Recent hospitalization for bilateral pneumonia, discharged on 09/06/2021 with Avelox and doxycycline History of CVA/TIA History of COVID-19 infection in May 2021 Plan: I'm going to stop the nitride infusion and switch this patient to chiropractic infusion. There is always toxicity concerns with nitride in patients with renal failure. Add Zestril 20 mg by mouth twice a day. Continue nifedipine and clonidine and Coreg at the same doses. Proceed with hemodialysis Monitor the blood pressure and gradually weaned off the nitride and use Cleviprex drip to bring his systolic blood pressure less than 160 Drop Levemir dose to 5 units twice a day along with a sliding scale coverage. Ativan to 1 mg every 8 hours as needed for anxiety by mouth Continue Lexapro Oxygen as needed to maintain a saturation above 90%. Blood work following hemodialysis Echo of the heart was noted We'll continue to follow. We'll keep in the ICU for now.
[2021-11-05] MEDS: CLEVIDIPINE BUTYRATE 25 MG in EMPTY BAG 1 BAG IV SCH ×2 (09:15→13:45)
[2021-11-05 09:44] LABS: Anisocytosis Moderate; Basophils % (A) 0 %; Eosinophils # (A) 0.2 k/uL (0-0.7); Eosinophils % (A) 3 %; HCT 21.8 % (34.0-46.0); HGB 7.2 gm/dL (11.4-16.0); Hypochromasia Slight; Lymphocytes # (A) 0.7 k/uL (1.0-4.8); Lymphocytes % (A) 10 %; MCH 30.7 pg (25.0-35.0); MCHC 33.1 g/dL (31.0-37.0); MCV 92.7 fL (80.0-100.0); Macrocytosis Slight; Mean Platelet Volume 8.8; Monocytes # (A) 0.2 k/uL (0-1.0); Monocytes % (A) 4 %; Neutrophils # (A) 5.5 k/uL (1.3-7.7); Neutrophils % (A) 81 %; Platelet Count 291 k/uL (150-450); Poikilocytosis Slight; RBC 2.35 m/uL (3.80-5.40); WBC 6.8 k/uL (3.8-10.6)
[2021-11-05 10:00] LABS: Albumin 3.4 g/dL (3.5-5.0); Calcium 8.1 mg/dL (8.4-10.2); Total Bilirubin 0.6 mg/dL (0.2-1.3); Total Protein 5.6 g/dL (6.3-8.2)
--- NOTE | 2021-11-05 10:14 | P.PN ---
Subjective Patient is seen in follow-up for end-stage renal disease. She is maintained on hemodialysis on Monday schedule. Tolerating dialysis well. No chest pain or shortness of breath. Blood sugars controlled this morning. Blood pressure also stable. Vital signs are stable. General: Awake. No acute distress. HEENT: Head exam is unremarkable. LUNGS: Breath sounds decreased. HEART: Rate and Rhythm are regular. ABDOMEN: Soft, no distention. EXTREMITITES: No edema. Objective - Vital Signs Vital signs: Vital Signs Temp 97.7 F 11/05/21 09:00 Pulse 69 11/05/21 09:30 Resp 27 H 11/05/21 09:30 BP 121/82 11/05/21 09:30 Pulse Ox 99 11/05/21 09:30 FiO2 Intake & Output 11/04/21 11/05/21 11/05/21 18:59 06:59 18:59 Intake Total 2020 44.955 170 Output Total 2700 0 0 Balance -680 44.955 170 Intake: IV 20 Sodium Chloride 0.9% 1, 20 000 ml @ 20 mls/hr IV . Q24H [facility] Rx#:[id number] Intake, IV Titration 44.955 Amount Nitroprusside 50 mg In 44.955 Dextrose 5% in Water 250 ml @ 8.1 mls/hr IV .Q24H [facility] Rx#:[id number] Oral 1320 150 Hemodialysis 700 Output: Urine 0 0 0 Hemodialysis 2700 Other: Voiding Method Toilet Toilet # Voids 1 1 - Labs CBC & Chem 7: 11/05/21 09:00 11/04/21 09:24 Labs: Abnormal Lab Results - Last 24 Hours (Table) 11/04/21 11/04/21 11/04/21 Range/Units 11:40 16:31 20:10 RBC (3.80-5.40) m/uL Hgb (11.4-16.0) gm/dL Hct (34.0-46.0) % RDW (11.5-15.5) % Lymphocytes # (1.0-4.8) k/uL POC Glucose (mg/dL) 156 H 111 H 355 H (75-99) mg/dL 11/04/21 11/05/21 11/05/21 Range/Units 22:25 01:02 04:46 RBC (3.80-5.40) m/uL Hgb (11.4-16.0) gm/dL Hct (34.0-46.0) % RDW (11.5-15.5) % Lymphocytes # (1.0-4.8) k/uL POC Glucose (mg/dL) 148 H 56 L 43 L (75-99) mg/dL 11/05/21 11/05/21 Range/Units 05:08 09:00 RBC 2.35 L (3.80-5.40) m/uL Hgb 7.2 L (11.4-16.0) gm/dL Hct 21.8 L (34.0-46.0) % RDW 21.0 H (11.5-15.5) % Lymphocytes # 0.7 L (1.0-4.8) k/uL POC Glucose (mg/dL) 63 L (75-99) mg/dL Assessment and Plan Plan: Assessment: 1. End-stage renal disease maintained on hemodialysis on Monday schedule. 2. Hypertensive emergency with volume overload. Improved. 3. Acute on chronic diastolic CHF with moderate to severe tricuspid regurgitation and pulmonary hypertension. 4. History of pericardial effusion. 5. Chronic hyperkalemia secondary to chronic kidney disease and hyperglycemia. Potassium 6.1 today due to hyperglycemia. 6. Diabetes mellitus. 7. 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 8. Anemia of chronic kidney disease. Iron replete. On Aranesp. 9. Hypertonic hyponatremia secondary to hyperglycemia. Corrected sodium in the normal range. 10. Volume overload. Improving with daily ultrafiltration. Plan: Currently seen was undergoing hemodialysis. Plan for another treatment tomorrow mostly for ultrafiltration. Blood sugar control. Maintain current antihypertensives. Avoid hydralazine and minoxidil due to pericardial effusion. Avoid CHANDA inhibitor or angiotensin receptor blockers due to chronic hyperkalemia. Patient has been strongly advised to be compliant with her home medications and dialysis treatments outpatient. Life-threatening risks of noncompliance, including , have been discussed with the patient with times. Morning labs pending. Increase dose of Aranesp.
[2021-11-05 10:23] LABS: Potassium 6.6 mmol/L (3.5-5.1)
[2021-11-05 11:35] LABS: Glucose,Whole Blood 226 mg/dL (75-99)
[2021-11-05] MEDS: HEPARIN SODIUM,PORCINE/PF 5,000 UNIT/0.5 ML SYRINGE SQ SCH ×2 (12:31→20:40)
[2021-11-05] MEDS: HYDROmorphone 1 MG/ML 1 ML SYRINGE IVP PRN ×3 (12:32→20:41)
[2021-11-05] MEDS: CYANOCOBALAMIN 500 MCG TAB PO SCH (12:32)
[2021-11-05] MEDS: ASPIRIN 81 MG PO SCH (12:32)
[2021-11-05] MEDS: cloNIDine HCL 0.1 MG TAB PO SCH ×3 (12:33→21:29)
[2021-11-05] MEDS: ATORVASTATIN 40 MG TAB PO SCH (12:35)
[2021-11-05] MEDS: ESCITALOPRAM 20 MG TAB PO SCH (12:35)
--- NOTE | 2021-11-05 12:47 | P.PN ---
Subjective Patient continues to be hypertensive and last eye she was started on IV nitroprusside She is on multiple medications for hypertension Currently she is on IV clevidipine She was just started on lisinopril 20 mg by mouth daily in addition to her other medications She is on nifedipine long-acting 120 mg daily, Coreg 50 g twice daily, clonidine Her blood pressure not being controlled despite these medications We may need to add minoxidil Objective - Vital Signs Vital signs: Vital Signs Temp 97.7 F 11/05/21 09:00 Pulse 71 11/05/21 12:00 Resp 19 11/05/21 12:00 BP 160/97 11/05/21 12:32 Pulse Ox 91 L 11/05/21 12:00 FiO2 Intake & Output 11/04/21 11/05/21 11/05/21 18:59 06:59 18:59 Intake Total 2020 44.955 205 Output Total 2700 0 4000 Balance -680 44.955 -3795 Intake: IV 50 Sodium Chloride 0.9% 1, 50 000 ml @ 20 mls/hr IV . Q24H [facility] Rx#:[id number] Intake, IV Titration 44.955 5 Amount Clevidipine Butyrate 25 5 mg In Empty Bag 1 bag @ 1 MG/HR 2 mls/hr IV .Q24H [facility] Rx#:[id number] Nitroprusside 50 mg In 44.955 Dextrose 5% in Water 250 ml @ 8.1 mls/hr IV .Q24H [facility] Rx#:[id number] Oral 1320 150 Hemodialysis 700 Output: Urine 0 0 0 Hemodialysis 2700 4000 Other: Voiding Method Toilet Toilet Toilet # Voids 1 1 - Labs CBC & Chem 7: 11/05/21 09:00 11/05/21 09:00 Labs: Abnormal Lab Results - Last 24 Hours (Table) 11/04/21 11/04/21 11/04/21 Range/Units 16:31 20:10 22:25 RBC (3.80-5.40) m/uL Hgb (11.4-16.0) gm/dL Hct (34.0-46.0) % RDW (11.5-15.5) % Lymphocytes # (1.0-4.8) k/uL Sodium (137-145) mmol/L Potassium (3.5-5.1) mmol/L Chloride (98-107) mmol/L BUN (7-17) mg/dL Creatinine (0.52-1.04) mg/dL Glucose (74-99) mg/dL POC Glucose (mg/dL) 111 H 355 H 148 H (75-99) mg/dL Calcium (8.4-10.2) mg/dL Total Protein (6.3-8.2) g/dL Albumin (3.5-5.0) g/dL 11/05/21 11/05/21 11/05/21 Range/Units 01:02 04:46 05:08 RBC (3.80-5.40) m/uL Hgb (11.4-16.0) gm/dL Hct (34.0-46.0) % RDW (11.5-15.5) % Lymphocytes # (1.0-4.8) k/uL Sodium (137-145) mmol/L Potassium (3.5-5.1) mmol/L Chloride (98-107) mmol/L BUN (7-17) mg/dL Creatinine (0.52-1.04) mg/dL Glucose (74-99) mg/dL POC Glucose (mg/dL) 56 L 43 L 63 L (75-99) mg/dL Calcium (8.4-10.2) mg/dL Total Protein (6.3-8.2) g/dL Albumin (3.5-5.0) g/dL 11/05/21 11/05/21 11/05/21 Range/Units 09:00 09:00 11:32 RBC 2.35 L (3.80-5.40) m/uL Hgb 7.2 L (11.4-16.0) gm/dL Hct 21.8 L (34.0-46.0) % RDW 21.0 H (11.5-15.5) % Lymphocytes # 0.7 L (1.0-4.8) k/uL Sodium 122 L (137-145) mmol/L Potassium 6.6 H* (3.5-5.1) mmol/L Chloride 89 L (98-107) mmol/L BUN 34 H (7-17) mg/dL Creatinine 4.09 H (0.52-1.04) mg/dL Glucose 492 H (74-99) mg/dL POC Glucose (mg/dL) 226 H (75-99) mg/dL Calcium 8.1 L (8.4-10.2) mg/dL Total Protein 5.6 L (6.3-8.2) g/dL Albumin 3.4 L (3.5-5.0) g/dL
[2021-11-05 16:48] LABS: Glucose,Whole Blood 259 mg/dL (75-99)
[2021-11-05] MEDS: DARBEPOETIN ALFA 60 MCG/0.3 ML SYRINGE SQ SCH (17:37)
[2021-11-05] MEDS: SODIUM CHLORIDE 0.9% 1,000 ML IV SCH (18:36)
--- NOTE | 2021-11-05 18:41 | PN ---
PROGRESS NOTE CHIEF COMPLAINT: Renal failure, hypertension, low back pain. HISTORY OF PRESENT ILLNESS: This lady is still being dialyzed. Blood pressure is still fluctuating somewhat. She has a lot of low back pain which apparently is chronic. Other than that, she seems to be stable. PHYSICAL EXAMINATION: Her blood sugars are still quite erratic. Chest is clear. Cardiac exam is normal. Abdomen is soft, nontender. IMPRESSION: 1. End-stage renal disease, on dialysis. 2. Malignant hypertension. 3. Low back pain. 4. Labile diabetes mellitus. PLAN: She was given a single dose of Dilaudid last night for pain. Other than that, dialysis continues as well as efforts to control her blood sugars until she can be moved out of the intensive care unit. MMODL / IJN: [id number] /
[2021-11-05 20:34] LABS: Glucose,Whole Blood 324 mg/dL (75-99)
[2021-11-05] MEDS: INSULIN DETEMIR (LEVEMIR) 100 UNIT/ML SYR SQ SCH (20:39)
[2021-11-05] MEDS: MELATONIN 5 MG TABLET PO PRN (20:40)
[2021-11-05] MEDS: lisinopriL 20 MG TAB PO SCH (20:40)
[2021-11-06] MEDS: diphenhydrAMINE 50 MG/ML 1 ML VIAL IVP PRN ×6 (00:23→21:49)
[2021-11-06 00:44] LABS: Glucose,Whole Blood 46 mg/dL (75-99)
[2021-11-06 01:36] LABS: Glucose,Whole Blood 87 mg/dL (75-99)
[2021-11-06] MEDS: HYDROmorphone 1 MG/ML 1 ML SYRINGE IVP PRN ×5 (01:36→20:58)
[2021-11-06] MEDS: LORazepam 1 MG TAB PO PRN ×3 (04:23→20:58)
[2021-11-06 06:25] LABS: Glucose,Whole Blood 443 mg/dL (75-99)
[2021-11-06] MEDS: PANTOPRAZOLE 40 MG TABLET PO SCH (06:53)
[2021-11-06] MEDS: CALCIUM ACETATE 667 MG TAB PO SCH ×3 (06:53→16:47)
[2021-11-06] MEDS: carvediloL 12.5 MG TAB PO SCH ×2 (06:53→16:47)
[2021-11-06] MEDS: INSULIN ASPART (NovoLOG) 100 UNIT/ML VIAL SQ SCH ×4 (06:53→20:56)
[2021-11-06 06:55] LABS: Anisocytosis Moderate; HCT 22.2 % (34.0-46.0); HGB 7.3 gm/dL (11.4-16.0); Hypochromasia Slight; MCH 30.4 pg (25.0-35.0); Macrocytosis Slight; Platelet Count 265 k/uL (150-450); Poikilocytosis Moderate; RBC 2.41 m/uL (3.80-5.40); RDW 21.5 % (11.5-15.5); WBC 5.9 k/uL (3.8-10.6)
[2021-11-06 07:08] LABS: Calcium 8.5 mg/dL (8.4-10.2); Potassium 5.4 mmol/L (3.5-5.1)
--- NOTE | 2021-11-06 07:33 | P.PN ---
Subjective Progress Note Date: 11/06/21 11/02/2021, the patient got transferred back to the intensive care unit. We are going to see this patient in consultation. The patient was in a medical floor. She is a type I diabetic and she has also retinopathy and she is legally blind along with neuropathy and she also has end-stage renal disease on hemodialysis 3 times a week. She has had previous CVA and pericardial effusion she has had also multiple admissions to the hospital. During this most recent hospitalization, the patient was having some issues with blood pressure and chest pain. Her blood pressure was quite elevated. This was regulated and the patient got dialyzed and her last dialysis was yesterday. Her chest x-ray was revealing some cardiomegaly and microvascular congestion. The patient transferred to the intensive care unit this morning because of hyperglycemia and the sugar was above 700. The patient also had a potassium level of 7.1 with a sodium level of 127. This was a significant drop compared to yesterday and for that reason the patient is having an emergent dialysis today. She is currently on room air oxygen. She is getting a blood pressure 162/87. She is free of any chest pain. She is maintained on a combination of Coreg, clonidine, Procardia and Nitro-Bid for blood pressure control. Her cardiac rhythm is sinus. On 11/03/2021 patient seen in follow-up in the intensive care unit, this morning she is awake and alert, she has been having intermittent chest discomfort that she describes as chest pressure midsternal and slightly off to the left, no radiation, not associated with diaphoresis, neck or arm discomfort. She states it usually comes on when her blood pressure starts trending up. Current blood pressure is 155/96, sinus rhythm with a rate of 81 BPM, room air pulse ox is 96%, respiratory rate is 23 per minutes. She rates the chest discomfort 6 out of 10. EKG was taken, showing one box elevation in the V2 lead, and ST segment depression and T-wave inversion in the V5 and V6 leads. Troponin level was added to this morning's labs, cardiology consultation is pending. Patient had a hemodialysis treatment yesterday with removal of 3.6 L of fluid, she denies any shortness of breath, lung sounds are clear to auscultation. This morning's labs have an reviewed showing white blood cell count is 6.3, hemoglobin of 8.0, platelet count is 328, sodium is 1:30, potassium 6.1, chloride is 94, CO2 is 19, BUN is 45 and creatinine is 6.08, serum glucose is 616 on this morning's labs, last night her Levemir dose was held, and this morning Levemir was given, and this morning's blood sugar is 464, patient was given 8 units of NovoLog and additional 5 units of NovoLog was given. 11/04/2021, the patient's postdialysis from yesterday with a total of 2.2 L of fluid being removed. Potassium level is currently normal limits currently at 4.4. Anticipate the last set of labs from yesterday. Repeat labs from today still pending for now. Currently the patient on oxygen. Blood sugar from this morning is at 161. Note that the patient is currently on Levemir insulin twice a day dosing and she's taking 10 mg of Levemir twice a day in addition to NovoLog with a sliding scale coverage. Cardiology will also see the patient has the patient was having episodic chest pain and the troponin that was added yesterday was normal at 0.0 23. No chest pain. No significant shortness of breath which is hemodynamically stable. Morning blood pressure is 157/91. Antihypertensive medications are currently on board and the patient is currently on clonidine 0.3 mg 3 times a day and she is also on Coreg 50 mg twice a day and Procardia 120 mg by mouth daily. He is tolerating his diet. No nausea. No vomiting. No emesis. No Altered mentation. No other significant events overnight. 11/05/2021, patient is being seen for a follow-up. She is uncomfortable and she is having chest pain and typically she gets chest pain with elevated blood pressures. As of last night, the patient had significant hypertension. The blood pressure went up to systolic blood pressures are above 200. The patient received additional dose of clonidine 0.3 mg and amlodipine 10 mg and another 0.2 clonidine and the blood pressure continued to be elevated. At that point, the patient was started on nipride currently running at 1.5 mcg/kg per minute. Blood pressure currently is around 161/108. The patient has is undergoing hemodialysis and she is tolerating the dialysis well. Symptoms of her chest pain, the patient received [place] and she'll be given Dilaudid for pain control. No acute EKG changes. No altered mentation. No cardiac arrhythmias. No nausea or emesis. No headaches. No focal neurological deficits. As far as her blood sugar control, her blood sugars have been all over the place. There has been significant fluctuation in blood sugar and it was as high as 355 and dropped down to 54 at around midnight. She was given fluid or hypoglycemia and the subsequent blood sugars came at 78 and later on down to 46. And most recent blood sugar is 76. She remains on Levemir insulin and she is currently on 10 units twice a day. He is also on a sliding scale coverage. As mentioned, her blood sugar has been very brittle and hard to control. Otherwise, the rest of blood work from today still pending for now. In terms of her antihypertensive medication, the patient is currently on Coreg 50 mg twice a day, clonidine 0.3 mg 3 times a day, and Procardia XL 120 mg by mouth daily. 11 2021, the patient is awake and alert. She underwent hemodialysis yesterday and a total of 3 L of fluid was also removed. Blood pressure is under much better control and the patient is currently off Cleviprex drip. She is on a combination of clonidine 0.3 mg 3 times a day, Procardia 120 mg XL 1 tablet daily lisinopril 20 mg by mouth daily. Her blood pressures on the affected control for now. Nevertheless, the sugars are all over the place and the patient is having hyper-and hypoglycemic episodes. Yesterday at around midnight, sugar dropped down in the 40s. She was slightly symptomatic along with that. This was treated accordingly. Nevertheless, this morning, her blood sugar is above 400 and her sodium is down to 121. Potassium level is at 5.4. The patient remains hemodynamically stable. She is tolerating her diet. She had a full meal this morning and she had a full breakfast. No nausea. No vomiting. No emesis. No abdominal pain. No altered mentation. She is on oxygen currently at 3 L per minute nasal cannula. In terms of her blood sugar control, the patient is taking Levemir 5 units twice a day and she is also on a sliding scale coverage. Objective - Vital Signs Vital signs: Vital Signs Temp 98.5 F 11/06/21 04:00 Pulse 62 11/06/21 07:00 Resp 20 11/05/21 18:00 BP 102/67 11/06/21 07:00 Pulse Ox 94 L 11/06/21 07:00 FiO2 Intake & Output 11/05/21 11/06/21 11/06/21 18:59 06:59 18:59 Intake Total 671.933 846.533 10 Output Total 4000 0 0 Balance -3328.067 846.533 10 Intake: IV 110 120 10 Sodium Chloride 0.9% 1, 110 120 10 000 ml @ 20 mls/hr IV . Q24H [facility] Rx#:[id number] Intake, IV Titration 61.933 6.533 Amount Clevidipine Butyrate 25 61.933 6.533 mg In Empty Bag 1 bag @ 1 MG/HR 2 mls/hr IV .Q24H [facility] Rx#:[id number] Oral 500 720 Output: Urine 0 0 0 Hemodialysis 4000 Other: Voiding Method Toilet Toilet # Voids 1 - Exam GENERAL EXAM: Alert, pleasant, 30-year-old white female, resting in bed, Pulse ox is 97%, comfortable in no apparent distress. HEAD: Normocephalic/atraumatic. EYES: Normal reaction of pupils, equal size. Conjunctiva pink, sclera white. NOSE: Clear with pink turbinates. THROAT: No erythema or exudates. NECK: No masses, no JVD, no thyroid enlargement, no adenopathy. CHEST: No chest wall deformity. Symmetrical expansion. LUNGS: Equal air entry with no crackles, wheeze, rhonchi or dullness. CVS: Regular rate and rhythm, normal S1 and S2, no gallops, no murmurs, no rubs ABDOMEN: Soft, nontender. No hepatosplenomegaly, normal bowel sounds, no guarding or rigidity. EXTREMITIES: No clubbing, no edema, no cyanosis, 2+ pulses and upper and lower extremities. left Arm AV fistula MUSCULOSKELETAL: Muscle strength and tone normal. SPINE: No scoliosis or deformity SKIN: No rashes CENTRAL NERVOUS SYSTEM: Alert and oriented -3. No focal deficits, tone is normal in all 4 extremities. PSYCHIATRIC: Alert and oriented -3. Appropriate affect. Intact judgment and insight. - Labs CBC & Chem 7: 11/06/21 06:16 11/06/21 06:16 Labs: Abnormal Lab Results - Last 24 Hours (Table) 11/05/21 11/05/21 11/05/21 Range/Units 09:00 09:00 11:32 RBC 2.35 L (3.80-5.40) m/uL Hgb 7.2 L (11.4-16.0) gm/dL Hct 21.8 L (34.0-46.0) % RDW 21.0 H (11.5-15.5) % Lymphocytes # 0.7 L (1.0-4.8) k/uL Sodium 122 L (137-145) mmol/L Potassium 6.6 H* (3.5-5.1) mmol/L Chloride 89 L (98-107) mmol/L BUN 34 H (7-17) mg/dL Creatinine 4.09 H (0.52-1.04) mg/dL Glucose 492 H (74-99) mg/dL POC Glucose (mg/dL) 226 H (75-99) mg/dL Calcium 8.1 L (8.4-10.2) mg/dL Total Protein 5.6 L (6.3-8.2) g/dL Albumin 3.4 L (3.5-5.0) g/dL 11/05/21 11/05/21 11/06/21 Range/Units 16:36 20:32 00:42 RBC (3.80-5.40) m/uL Hgb (11.4-16.0) gm/dL Hct (34.0-46.0) % RDW (11.5-15.5) % Lymphocytes # (1.0-4.8) k/uL Sodium (137-145) mmol/L Potassium (3.5-5.1) mmol/L Chloride (98-107) mmol/L BUN (7-17) mg/dL Creatinine (0.52-1.04) mg/dL Glucose (74-99) mg/dL POC Glucose (mg/dL) 259 H 324 H 46 L (75-99) mg/dL Calcium (8.4-10.2) mg/dL Total Protein (6.3-8.2) g/dL Albumin (3.5-5.0) g/dL 11/06/21 11/06/21 11/06/21 Range/Units 06:16 06:16 06:23 RBC 2.41 L (3.80-5.40) m/uL Hgb 7.3 L (11.4-16.0) gm/dL Hct 22.2 L (34.0-46.0) % RDW 21.5 H (11.5-15.5) % Lymphocytes # (1.0-4.8) k/uL Sodium 121 L (137-145) mmol/L Potassium 5.4 H (3.5-5.1) mmol/L Chloride 87 L (98-107) mmol/L BUN 26 H (7-17) mg/dL Creatinine 3.96 H (0.52-1.04) mg/dL Glucose 349 H (74-99) mg/dL POC Glucose (mg/dL) 443 H (75-99) mg/dL Calcium (8.4-10.2) mg/dL Total Protein (6.3-8.2) g/dL Albumin (3.5-5.0) g/dL Assessment and Plan Plan: Diabetes mellitus type 1 with acute hyperglycemia and brittle blood sugar co ntrol. Blood the blood sugars under better control the patient remains on Levemir insulin 5 units twice a day along with a sliding scale coverage. There is still ongoing wide fluctuations in blood sugar and the patient will be kept on a low-dose Levemir in addition to that she was receiving sliding scale coverage. Chest pain, rule out ACS, negative troponins, echo evaluation was completed. Th e echo was also completed. The echo cardiac exam showed a hypertensive heart disease. Ejection fraction of around 50-55%. Moderate increase in the LV wall thickness related to chronic hypertension there was also mild pulmonary hypertension. Acute hyperkalemia requiring hemodialysis. The potassium level improved and the patient potassium normalized post dialysis Hypertensive emergency with subsequent chest discomfort, recovered , and the patient is currently off the Cleviprex drip Mild troponin leak secondary to above Acute pulmonary edema secondary to hypertensive emergency, currently on 2 l oxygen End-stage renal disease to receive hemodialysis on Monday Acute hyponatremia and likely a pseudo-hyponatremia secondary to hyperglycemia. Anion gap metabolic acidosis Chronic anemia Recent hospitalization for hypertensive emergency, missed dialysis, discharged on 09/23/2021 Recent moderate circumferential pericardial effusion Recent hospitalization for bilateral pneumonia, discharged on 09/06/2021 with Avelox and doxycycline History of CVA/TIA History of COVID-19 infection in May 2021 Plan: Proceed with another session of dialysis today Medications Sinemet hypertensive medications Monitor electrolytes Monitor blood sugars Levemir dose to 5 units twice a day along with a sliding scale coverage. Ativan to 1 mg every 8 hours as needed for anxiety by mouth Continue Lexapro Oxygen as needed to maintain a saturation above 90%. We'll continue to follow. We'll keep in the ICU for now.
[2021-11-06 07:36] LABS: Glucose,Whole Blood 432 mg/dL (75-99)
[2021-11-06] MEDS: HEPARIN SODIUM,PORCINE/PF 5,000 UNIT/0.5 ML SYRINGE SQ SCH ×2 (09:03→20:56)
[2021-11-06] MEDS: INSULIN DETEMIR (LEVEMIR) 100 UNIT/ML SYR SQ SCH ×2 (09:03→20:57)
[2021-11-06] MEDS: ESCITALOPRAM 20 MG TAB PO SCH (09:04)
[2021-11-06] MEDS: cloNIDine HCL 0.1 MG TAB PO SCH ×3 (09:04→20:55)
[2021-11-06] MEDS: CYANOCOBALAMIN 500 MCG TAB PO SCH (09:05)
[2021-11-06] MEDS: ASPIRIN 81 MG PO SCH (09:05)
[2021-11-06] MEDS: lisinopriL 20 MG TAB PO SCH (09:10)
[2021-11-06] MEDS: ATORVASTATIN 40 MG TAB PO SCH (09:10)
[2021-11-06] MEDS: HYDROcodone/APAP 5-325MG 1 EACH TAB PO PRN (09:13)
--- NOTE | 2021-11-06 09:54 | P.PN ---
Subjective Patient is seen in follow-up for end-stage renal disease. She is maintained on hemodialysis on Monday schedule. Tolerated 4 L ultrafiltration yesterday. No chest pain or shortness of breath. Blood pressure stable. However blood sugars remain high. Vital signs are stable. General: Awake. No acute distress. HEENT: Head exam is unremarkable. LUNGS: Breath sounds decreased. HEART: Rate and Rhythm are regular. ABDOMEN: Soft, no distention. EXTREMITITES: No edema. Objective - Vital Signs Vital signs: Vital Signs Temp 98.0 F 11/06/21 08:00 Pulse 68 11/06/21 09:30 Resp 15 11/06/21 09:30 BP 137/92 11/06/21 09:30 Pulse Ox 95 11/06/21 09:30 FiO2 Intake & Output 11/05/21 11/06/21 11/06/21 18:59 06:59 18:59 Intake Total 671.933 846.533 390 Output Total 4000 0 0 Balance -3328.067 846.533 390 Intake: IV 110 120 30 Sodium Chloride 0.9% 1, 110 120 30 000 ml @ 20 mls/hr IV . Q24H [facility] Rx#:[id number] Intake, IV Titration 61.933 6.533 Amount Clevidipine Butyrate 25 61.933 6.533 mg In Empty Bag 1 bag @ 1 MG/HR 2 mls/hr IV .Q24H [facility] Rx#:[id number] Oral 500 720 360 Output: Urine 0 0 0 Hemodialysis 4000 Other: Voiding Method Toilet Toilet # Voids 1 - Labs CBC & Chem 7: 11/06/21 06:16 11/06/21 06:16 Labs: Abnormal Lab Results - Last 24 Hours (Table) 11/05/21 11/05/21 11/05/21 Range/Units 09:00 09:00 11:32 RBC 2.35 L (3.80-5.40) m/uL Hgb 7.2 L (11.4-16.0) gm/dL Hct 21.8 L (34.0-46.0) % RDW 21.0 H (11.5-15.5) % Lymphocytes # 0.7 L (1.0-4.8) k/uL Sodium 122 L (137-145) mmol/L Potassium 6.6 H* (3.5-5.1) mmol/L Chloride 89 L (98-107) mmol/L BUN 34 H (7-17) mg/dL Creatinine 4.09 H (0.52-1.04) mg/dL Glucose 492 H (74-99) mg/dL POC Glucose (mg/dL) 226 H (75-99) mg/dL Calcium 8.1 L (8.4-10.2) mg/dL Total Protein 5.6 L (6.3-8.2) g/dL Albumin 3.4 L (3.5-5.0) g/dL 11/05/21 11/05/21 11/06/21 Range/Units 16:36 20:32 00:42 RBC (3.80-5.40) m/uL Hgb (11.4-16.0) gm/dL Hct (34.0-46.0) % RDW (11.5-15.5) % Lymphocytes # (1.0-4.8) k/uL Sodium (137-145) mmol/L Potassium (3.5-5.1) mmol/L Chloride (98-107) mmol/L BUN (7-17) mg/dL Creatinine (0.52-1.04) mg/dL Glucose (74-99) mg/dL POC Glucose (mg/dL) 259 H 324 H 46 L (75-99) mg/dL Calcium (8.4-10.2) mg/dL Total Protein (6.3-8.2) g/dL Albumin (3.5-5.0) g/dL 11/06/21 11/06/21 11/06/21 Range/Units 06:16 06:16 06:23 RBC 2.41 L (3.80-5.40) m/uL Hgb 7.3 L (11.4-16.0) gm/dL Hct 22.2 L (34.0-46.0) % RDW 21.5 H (11.5-15.5) % Lymphocytes # (1.0-4.8) k/uL Sodium 121 L (137-145) mmol/L Potassium 5.4 H (3.5-5.1) mmol/L Chloride 87 L (98-107) mmol/L BUN 26 H (7-17) mg/dL Creatinine 3.96 H (0.52-1.04) mg/dL Glucose 349 H (74-99) mg/dL POC Glucose (mg/dL) 443 H (75-99) mg/dL Calcium (8.4-10.2) mg/dL Total Protein (6.3-8.2) g/dL Albumin (3.5-5.0) g/dL 11/06/21 Range/Units 07:35 RBC (3.80-5.40) m/uL Hgb (11.4-16.0) gm/dL Hct (34.0-46.0) % RDW (11.5-15.5) % Lymphocytes # (1.0-4.8) k/uL Sodium (137-145) mmol/L Potassium (3.5-5.1) mmol/L Chloride (98-107) mmol/L BUN (7-17) mg/dL Creatinine (0.52-1.04) mg/dL Glucose (74-99) mg/dL POC Glucose (mg/dL) 432 H (75-99) mg/dL Calcium (8.4-10.2) mg/dL Total Protein (6.3-8.2) g/dL Albumin (3.5-5.0) g/dL Assessment and Plan Plan: Assessment: 1. End-stage renal disease maintained on hemodialysis on Monday schedule. 2. Hypertensive emergency with volume overload. Improved. 3. Acute on chronic diastolic CHF with moderate to severe tricuspid regurgitation and pulmonary hypertension. 4. History of pericardial effusion. 5. Chronic hyperkalemia secondary to chronic kidney disease and hyperglycemia. Potassium 6.1 today due to hyperglycemia. 6. Diabetes mellitus. 7. 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 8. Anemia of chronic kidney disease. Iron replete. On Aranesp. 9. Hypertonic hyponatremia secondary to hyperglycemia. Corrected sodium in the normal range. Hypervolemic. 10. Volume overload. Improving with daily ultrafiltration. Plan: Hemodialysis today. Blood sugar control. 1500 mL fluid restriction. Maintain current antihypertensives. Avoid hydralazine and minoxidil due to pericardial effusion. Avoid CHANDA inhibitor or angiotensin receptor blockers due to chronic hyperkalemia. Patient has been strongly advised to be compliant with her home medications and dialysis treatments outpatient. Life-threatening risks of noncompliance, including , have been discussed with the patient with times.
--- NOTE | 2021-11-06 10:57 | P.PN ---
Subjective Progress Note Date: 11/06/21 This is Emerson jones NP, I'm dictating on behalf of Dr. Hairston's H&P and A&P. Patient was interviewed and examined. Patient is a pleasant 30-year-old female who initially presented to hospital with hypertensive crisis. Patient has required multiple interventions of antihypertensive medications in order to normalize her blood pressure. Today her blood pressure is within normal limits. Patient is currently on carvedilol 50 twice a day, IV clevidipine at 2 mL an hour, clonidine 0.3 mg 3 times a day, nifedipine 120 mg daily. She currently denies chest pain, shortness of breath, heart palpitations, and dizziness. GENERAL: Well-appearing, well-nourished and in no acute distress. NECK: Supple without JVD or thyromegaly. LUNGS: Breath sounds clear to auscultation bilaterally. Respiration equal and unlabored. No wheezes, rales or rhonchi. HEART: Regular rate and rhythm without murmurs, rubs or gallops. S1 and S2 heard. EXTREMITIES: Normal range of motion, no edema. No clubbing or cyanosis. Peripheral pulses intact and strong. VITALS: Pulse 68, respirations 15, blood pressure 137/92, O2 saturation 95% on 3 L TELEMETRY: Normal sinus rhythm LABS: White count 5.9, hemoglobin 7.3, sodium 121, potassium 5.4, B1 26, creatinine 3.96 IMPRESSION/PLAN: 1. Hypertensive urgency-continue medications as prescribed. Continue to monitor blood pressure. 2. Chest pain, secondary to hypertension-resolved 3. End-stage renal disease, on dialysis 4. Chronic diastolic heart failure, secondary to end-stage renal disease 5. Uncontrolled diabetes Further recommendations will be made based on the patient's clinical course. Objective - Vital Signs Vital signs: Vital Signs Temp 98.0 F 11/06/21 08:00 Pulse 68 11/06/21 09:30 Resp 15 11/06/21 09:30 BP 137/92 11/06/21 09:30 Pulse Ox 95 11/06/21 09:30 FiO2 Intake & Output 11/05/21 11/06/21 11/06/21 18:59 06:59 18:59 Intake Total 671.933 846.533 390 Output Total 4000 0 0 Balance -3328.067 846.533 390 Intake: IV 110 120 30 Sodium Chloride 0.9% 1, 110 120 30 000 ml @ 20 mls/hr IV . Q24H [facility] Rx#:[id number] Intake, IV Titration 61.933 6.533 Amount Clevidipine Butyrate 25 61.933 6.533 mg In Empty Bag 1 bag @ 1 MG/HR 2 mls/hr IV .Q24H [facility] Rx#:[id number] Oral 500 720 360 Output: Urine 0 0 0 Hemodialysis 4000 Other: Voiding Method Toilet Toilet # Voids 1 - Labs CBC & Chem 7: 11/06/21 06:16 11/06/21 06:16 Labs: Abnormal Lab Results - Last 24 Hours (Table) 11/05/21 11/05/21 11/05/21 Range/Units 11:32 16:36 20:32 RBC (3.80-5.40) m/uL Hgb (11.4-16.0) gm/dL Hct (34.0-46.0) % RDW (11.5-15.5) % Sodium (137-145) mmol/L Potassium (3.5-5.1) mmol/L Chloride (98-107) mmol/L BUN (7-17) mg/dL Creatinine (0.52-1.04) mg/dL Glucose (74-99) mg/dL POC Glucose (mg/dL) 226 H 259 H 324 H (75-99) mg/dL 11/06/21 11/06/21 11/06/21 Range/Units 00:42 06:16 06:16 RBC 2.41 L (3.80-5.40) m/uL Hgb 7.3 L (11.4-16.0) gm/dL Hct 22.2 L (34.0-46.0) % RDW 21.5 H (11.5-15.5) % Sodium 121 L (137-145) mmol/L Potassium 5.4 H (3.5-5.1) mmol/L Chloride 87 L (98-107) mmol/L BUN 26 H (7-17) mg/dL Creatinine 3.96 H (0.52-1.04) mg/dL Glucose 349 H (74-99) mg/dL POC Glucose (mg/dL) 46 L (75-99) mg/dL 11/06/21 11/06/21 Range/Units 06:23 07:35 RBC (3.80-5.40) m/uL Hgb (11.4-16.0) gm/dL Hct (34.0-46.0) % RDW (11.5-15.5) % Sodium (137-145) mmol/L Potassium (3.5-5.1) mmol/L Chloride (98-107) mmol/L BUN (7-17) mg/dL Creatinine (0.52-1.04) mg/dL Glucose (74-99) mg/dL POC Glucose (mg/dL) 443 H 432 H (75-99) mg/dL
[2021-11-06 11:24] LABS: Glucose,Whole Blood 267 mg/dL (75-99)
[2021-11-06 16:34] LABS: Glucose,Whole Blood 127 mg/dL (75-99)
--- NOTE | 2021-11-06 17:20 | PN ---
PROGRESS NOTE DATE OF SERVICE: 11/06/2021 CHIEF COMPLAINT: Brittle type 1 diabetes and renal failure. HISTORY OF PRESENT ILLNESS: This lady is complaining right now of chest pain. She states it is from coughing a lot. Blood sugars are still extremely erratic. She was dialyzed today. PHYSICAL EXAMINATION: Chest is clear. The cardiac exam is normal. The abdomen is soft and nontender. IMPRESSION: 1. End-stage renal disease, on dialysis. 2. Type 1 insulin-dependent diabetes mellitus. 3. Chest wall pain. 4. Depression. 5. Diabetic retinopathy. PLAN: Analgesics on a limited basis at this time. MMODL / IJN: [id number] /
[2021-11-06] MEDS: SODIUM CHLORIDE 0.9% 1,000 ML IV SCH (18:53)
[2021-11-06 19:55] LABS: Glucose,Whole Blood 422 mg/dL (75-99)
[2021-11-06] MEDS: MELATONIN 5 MG TABLET PO PRN (20:59)
[2021-11-07 01:39] LABS: Glucose,Whole Blood 457 mg/dL (75-99)
[2021-11-07 01:39] LABS: Glucose,Whole Blood 455 mg/dL (75-99)
[2021-11-07] MEDS ORDERED: INSULIN ASPART (NovoLOG) 100 UNIT/ML VIAL SQ ONE (01:45)
[2021-11-07] MEDS: HYDROmorphone 1 MG/ML 1 ML SYRINGE IVP PRN ×4 (02:06→21:41)
[2021-11-07 03:56] LABS: Glucose,Whole Blood 245 mg/dL (75-99)
[2021-11-07] MEDS: diphenhydrAMINE 50 MG/ML 1 ML VIAL IVP PRN ×3 (04:24→23:09)
[2021-11-07] MEDS: LORazepam 1 MG TAB PO PRN ×3 (05:24→21:41)
[2021-11-07 06:43] LABS: Glucose,Whole Blood 240 mg/dL (75-99)
[2021-11-07] MEDS: CALCIUM ACETATE 667 MG TAB PO SCH ×3 (06:51→17:28)
[2021-11-07] MEDS: INSULIN ASPART (NovoLOG) 100 UNIT/ML VIAL SQ SCH ×4 (06:51→21:41)
[2021-11-07] MEDS: PANTOPRAZOLE 40 MG TABLET PO SCH (06:51)
[2021-11-07] MEDS: carvediloL 12.5 MG TAB PO SCH ×2 (06:51→17:24)
[2021-11-07 07:55] LABS: Anisocytosis Moderate; HCT 22.2 % (34.0-46.0); HGB 7.3 gm/dL (11.4-16.0); Hypochromasia Slight; MCH 30.4 pg (25.0-35.0); MCHC 33.1 g/dL (31.0-37.0); Macrocytosis Slight; Mean Platelet Volume 9.3; Platelet Count 212 k/uL (150-450); Poikilocytosis Moderate; RBC 2.41 m/uL (3.80-5.40); RDW 20.8 % (11.5-15.5); WBC 6.2 k/uL (3.8-10.6)
[2021-11-07 07:59] LABS: Calcium 8.6 mg/dL (8.4-10.2); Potassium 4.6 mmol/L (3.5-5.1)
--- NOTE | 2021-11-07 08:49 | P.PN ---
Subjective Progress Note Date: 11/07/21 11/02/2021, the patient got transferred back to the intensive care unit. We are going to see this patient in consultation. The patient was in a medical floor. She is a type I diabetic and she has also retinopathy and she is legally blind along with neuropathy and she also has end-stage renal disease on hemodialysis 3 times a week. She has had previous CVA and pericardial effusion she has had also multiple admissions to the hospital. During this most recent hospitalization, the patient was having some issues with blood pressure and chest pain. Her blood pressure was quite elevated. This was regulated and the patient got dialyzed and her last dialysis was yesterday. Her chest x-ray was revealing some cardiomegaly and microvascular congestion. The patient transferred to the intensive care unit this morning because of hyperglycemia and the sugar was above 700. The patient also had a potassium level of 7.1 with a sodium level of 127. This was a significant drop compared to yesterday and for that reason the patient is having an emergent dialysis today. She is currently on room air oxygen. She is getting a blood pressure 162/87. She is free of any chest pain. She is maintained on a combination of Coreg, clonidine, Procardia and Nitro-Bid for blood pressure control. Her cardiac rhythm is sinus. On 11/03/2021 patient seen in follow-up in the intensive care unit, this morning she is awake and alert, she has been having intermittent chest discomfort that she describes as chest pressure midsternal and slightly off to the left, no radiation, not associated with diaphoresis, neck or arm discomfort. She states it usually comes on when her blood pressure starts trending up. Current blood pressure is 155/96, sinus rhythm with a rate of 81 BPM, room air pulse ox is 96%, respiratory rate is 23 per minutes. She rates the chest discomfort 6 out of 10. EKG was taken, showing one box elevation in the V2 lead, and ST segment depression and T-wave inversion in the V5 and V6 leads. Troponin level was added to this morning's labs, cardiology consultation is pending. Patient had a hemodialysis treatment yesterday with removal of 3.6 L of fluid, she denies any shortness of breath, lung sounds are clear to auscultation. This morning's labs have an reviewed showing white blood cell count is 6.3, hemoglobin of 8.0, platelet count is 328, sodium is 1:30, potassium 6.1, chloride is 94, CO2 is 19, BUN is 45 and creatinine is 6.08, serum glucose is 616 on this morning's labs, last night her Levemir dose was held, and this morning Levemir was given, and this morning's blood sugar is 464, patient was given 8 units of NovoLog and additional 5 units of NovoLog was given. 11/04/2021, the patient's postdialysis from yesterday with a total of 2.2 L of fluid being removed. Potassium level is currently normal limits currently at 4.4. Anticipate the last set of labs from yesterday. Repeat labs from today still pending for now. Currently the patient on oxygen. Blood sugar from this morning is at 161. Note that the patient is currently on Levemir insulin twice a day dosing and she's taking 10 mg of Levemir twice a day in addition to NovoLog with a sliding scale coverage. Cardiology will also see the patient has the patient was having episodic chest pain and the troponin that was added yesterday was normal at 0.0 23. No chest pain. No significant shortness of breath which is hemodynamically stable. Morning blood pressure is 157/91. Antihypertensive medications are currently on board and the patient is currently on clonidine 0.3 mg 3 times a day and she is also on Coreg 50 mg twice a day and Procardia 120 mg by mouth daily. He is tolerating his diet. No nausea. No vomiting. No emesis. No Altered mentation. No other significant events overnight. 11/05/2021, patient is being seen for a follow-up. She is uncomfortable and she is having chest pain and typically she gets chest pain with elevated blood pressures. As of last night, the patient had significant hypertension. The blood pressure went up to systolic blood pressures are above 200. The patient received additional dose of clonidine 0.3 mg and amlodipine 10 mg and another 0.2 clonidine and the blood pressure continued to be elevated. At that point, the patient was started on nipride currently running at 1.5 mcg/kg per minute. Blood pressure currently is around 161/108. The patient has is undergoing hemodialysis and she is tolerating the dialysis well. Symptoms of her chest pain, the patient received Coden and she'll be given Dilaudid for pain control. No acute EKG changes. No altered mentation. No cardiac arrhythmias. No nausea or emesis. No headaches. No focal neurological deficits. As far as her blood sugar control, her blood sugars have been all over the place. There has been significant fluctuation in blood sugar and it was as high as 355 and dropped down to 54 at around midnight. She was given fluid or hypoglycemia and the subsequent blood sugars came at 78 and later on down to 46. And most recent blood sugar is 76. She remains on Levemir insulin and she is currently on 10 units twice a day. He is also on a sliding scale coverage. As mentioned, her blood sugar has been very brittle and hard to control. Otherwise, the rest of blood work from today still pending for now. In terms of her antihypertensive medication, the patient is currently on Coreg 50 mg twice a day, clonidine 0.3 mg 3 times a day, and Procardia XL 120 mg by mouth daily. 11 2021, the patient is awake and alert. She underwent hemodialysis yesterday and a total of 3 L of fluid was also removed. Blood pressure is under much better control and the patient is currently off Cleviprex drip. She is on a combination of clonidine 0.3 mg 3 times a day, Procardia 120 mg XL 1 tablet daily lisinopril 20 mg by mouth daily. Her blood pressures on the affected control for now. Nevertheless, the sugars are all over the place and the patient is having hyper-and hypoglycemic episodes. Yesterday at around midnight, sugar dropped down in the 40s. She was slightly symptomatic along with that. This was treated accordingly. Nevertheless, this morning, her blood sugar is above 400 and her sodium is down to 121. Potassium level is at 5.4. The patient remains hemodynamically stable. She is tolerating her diet. She had a full meal this morning and she had a full breakfast. No nausea. No vomiting. No emesis. No abdominal pain. No altered mentation. She is on oxygen currently at 3 L per minute nasal cannula. In terms of her blood sugar control, the patient is taking Levemir 5 units twice a day and she is also on a sliding scale coverage. Thousand and , the patient has an adequate blood pressure control. He underwent hemodialysis yesterday and the patient had another 3 L of fluid removed. She did well with that and the blood pressures under good control with a combination of clonidine, Procardia, leg and lisinopril subsequently, the lisinopril was discontinued by nephrology due to concerns of hyperkalemia. Meanwhile, we still have a major issue with this patient's blood sugar control. I reviewed a series of Accu-Cheks and it is very difficult to establish Her Blood Sugar Control. I Do See a Bouts of Hypoglycemia That Occurred at around Midnight with a Sugar of 46. Subsequent Blood Sugars Came at 400 Range and Then It Dropped and Then It Came up to 400s Range and Most Recent Blood Sugar from This Morning Is around 240. The Patient Is Receiving Levemir Insulin 5 Units Twice a Day and the Patient Is Also on NovoLog Sliding Scale Coverage. Her Diet Is Somewhat Irregular and the Patient Is Receiving 3 Meals. The patient has a blood work that showed a hemoglobin of 7.3 today with her white cell count of 6.2. Sodium is 128 and the potassium level is at 4.6. He is a 37 with a creatinine of 4.2. His resting comfortably in bed. She has no specific complaints. Terms of oxygenation, the patient's pulse ox is 93% 2 L of oxygen by nasal cannula. We'll may need further advice from endocrinology regarding this patient's blood sugar management and control. Otherwise, no nausea, no emesis, no altered mentation and no other significant events over the past 24 hours. Objective - Vital Signs Vital signs: Vital Signs Temp 98.4 F 11/07/21 04:00 Pulse 71 11/07/21 07:00 Resp 26 H 11/07/21 07:00 BP 102/62 11/07/21 07:00 Pulse Ox 93 L 11/07/21 07:08 FiO2 Intake & Output 11/06/21 11/07/21 11/07/21 18:59 06:59 18:59 Intake Total 912 1120 Output Total 3000 0 Balance 1120 Intake: IV 30 Sodium Chloride 0.9% 1, 30 000 ml @ 20 mls/hr IV . Q24H [facility] Rx#:[id number] Oral 582 1120 Hemodialysis 300 Output: Urine 0 0 Hemodialysis 3000 Other: Voiding Method Toilet Toilet - Exam GENERAL EXAM: Alert, pleasant, 30-year-old white female, resting in bed, Pulse ox is 97%, comfortable in no apparent distress. HEAD: Normocephalic/atraumatic. EYES: Normal reaction of pupils, equal size. Conjunctiva pink, sclera white. NOSE: Clear with pink turbinates. THROAT: No erythema or exudates. NECK: No masses, no JVD, no thyroid enlargement, no adenopathy. CHEST: No chest wall deformity. Symmetrical expansion. LUNGS: Equal air entry with no crackles, wheeze, rhonchi or dullness. CVS: Regular rate and rhythm, normal S1 and S2, no gallops, no murmurs, no rubs ABDOMEN: Soft, nontender. No hepatosplenomegaly, normal bowel sounds, no guarding or rigidity. EXTREMITIES: No clubbing, no edema, no cyanosis, 2+ pulses and upper and lower extremities. left Arm AV fistula MUSCULOSKELETAL: Muscle strength and tone normal. SPINE: No scoliosis or deformity SKIN: No rashes CENTRAL NERVOUS SYSTEM: Alert and oriented -3. No focal deficits, tone is normal in all 4 extremities. PSYCHIATRIC: Alert and oriented -3. Appropriate affect. Intact judgment and insight. - Labs CBC & Chem 7: 11/07/21 07:15 11/07/21 07:15 Labs: Abnormal Lab Results - Last 24 Hours (Table) 11/06/21 11/06/21 11/06/21 Range/Units 11:23 16:33 19:54 RBC (3.80-5.40) m/uL Hgb (11.4-16.0) gm/dL Hct (34.0-46.0) % RDW (11.5-15.5) % Sodium (137-145) mmol/L Chloride (98-107) mmol/L BUN (7-17) mg/dL Creatinine (0.52-1.04) mg/dL Glucose (74-99) mg/dL POC Glucose (mg/dL) 267 H 127 H 422 H (75-99) mg/dL 11/07/21 11/07/21 11/07/21 Range/Units 01:36 01:38 03:55 RBC (3.80-5.40) m/uL Hgb (11.4-16.0) gm/dL Hct (34.0-46.0) % RDW (11.5-15.5) % Sodium (137-145) mmol/L Chloride (98-107) mmol/L BUN (7-17) mg/dL Creatinine (0.52-1.04) mg/dL Glucose (74-99) mg/dL POC Glucose (mg/dL) 455 H 457 H 245 H (75-99) mg/dL 11/07/21 11/07/21 11/07/21 Range/Units 06:41 07:15 07:15 RBC 2.41 L (3.80-5.40) m/uL Hgb 7.3 L (11.4-16.0) gm/dL Hct 22.2 L (34.0-46.0) % RDW 20.8 H (11.5-15.5) % Sodium 128 L (137-145) mmol/L Chloride 92 L (98-107) mmol/L BUN 37 H (7-17) mg/dL Creatinine 4.23 H (0.52-1.04) mg/dL Glucose 236 H (74-99) mg/dL POC Glucose (mg/dL) 240 H (75-99) mg/dL Assessment and Plan Plan: Diabetes mellitus type 1 with acute hyperglycemia and brittle blood sugar control. Blood the blood sugars under better control the patient remains on Levemir insulin 5 units twice a day along with a sliding scale coverage. There is still ongoing wide fluctuations in blood sugar and the patient will be kept on a low-dose Levemir in addition to that she was receiving sliding scale coverage.. The blood sugar control over the past 24 hours was noted. The patient continues to have a markedly labile blood sugar control. She will benefit from an endocrinology consultation. She'll be kept on the same dose of Levemir and a scale for now., A Chest pain, rule out ACS, negative troponins, echo evaluation was completed. The echo was also completed. The echo cardiac exam showed a hypertensive heart disease. Ejection fraction of around 50-55%. Moderate increase in the LV wall thickness related to chronic hypertension there was also mild pulmonary hypertension. Acute hyperkalemia requiring hemodialysis. The potassium level improved and the patient potassium normalized post dialysis , the patient was taken off lisinopril due to concerns of episodic hyperkalemia. BP is under good control for now. Hypertensive emergency with subsequent chest discomfort, recovered , and the patient is currently off the Cleviprex drip, currently on a combination of Coreg, clonidine and Procardia Mild troponin leak secondary to above Acute pulmonary edema secondary to hypertensive emergency, currently on 2 l oxygen End-stage renal disease to receive hemodialysis on Monday Acute hyponatremia and likely a pseudo-hyponatremia secondary to hyperglycemia. Anion gap metabolic acidosis Chronic anemia Recent hospitalization for hypertensive emergency, missed dialysis, discharged on 09/23/2021 Recent moderate circumferential pericardial effusion Recent hospitalization for bilateral pneumonia, discharged on 09/06/2021 with Avelox and doxycycline History of CVA/TIA History of COVID-19 infection in May 2021 Plan: Hemodialysis was completed yesterday without any issues Discontinue lisinopril and continue the rest of the antihypertensive medication Monitor electrolytes Monitor blood sugars Levemir dose to 5 units twice a day along with a sliding scale coverage. The patient will need further advice from an endocrinology regarding her blood sugar control Ativan to 1 mg every 8 hours as needed for anxiety by mouth Continue Lexapro Oxygen as needed to maintain a saturation above 90%. We'll continue to follow. We'll keep in the ICU for now.
--- NOTE | 2021-11-07 09:12 | P.PN ---
Subjective Patient is seen in follow-up for end-stage renal disease. She is maintained on hemodialysis on Monday schedule. Tolerated 3 L ultrafiltration yesterday. No chest pain or shortness of breath. Blood pressure controlled. Blood sugar 236 this morning. Vital signs are stable. General: Awake. No acute distress. HEENT: Head exam is unremarkable. LUNGS: Breath sounds decreased. HEART: Rate and Rhythm are regular. ABDOMEN: Soft, no distention. EXTREMITITES: No edema. Objective - Vital Signs Vital signs: Vital Signs Temp 98.4 F 11/07/21 04:00 Pulse 71 11/07/21 07:00 Resp 26 H 11/07/21 07:00 BP 102/62 11/07/21 07:00 Pulse Ox 93 L 11/07/21 07:08 FiO2 Intake & Output 11/06/21 11/07/21 11/07/21 18:59 06:59 18:59 Intake Total 912 1120 Output Total 3000 0 Balance -2087 1120 Intake: IV 30 Sodium Chloride 0.9% 1, 30 000 ml @ 20 mls/hr IV . Q24H [facility] Rx#:[id number] Oral 582 1120 Hemodialysis 300 Output: Urine 0 0 Hemodialysis 3000 Other: Voiding Method Toilet Toilet - Labs CBC & Chem 7: 11/07/21 07:15 11/07/21 07:15 Labs: Abnormal Lab Results - Last 24 Hours (Table) 11/06/21 11/06/21 11/06/21 Range/Units 11:23 16:33 19:54 RBC (3.80-5.40) m/uL Hgb (11.4-16.0) gm/dL Hct (34.0-46.0) % RDW (11.5-15.5) % Sodium (137-145) mmol/L Chloride (98-107) mmol/L BUN (7-17) mg/dL Creatinine (0.52-1.04) mg/dL Glucose (74-99) mg/dL POC Glucose (mg/dL) 267 H 127 H 422 H (75-99) mg/dL 11/07/21 11/07/21 11/07/21 Range/Units 01:36 01:38 03:55 RBC (3.80-5.40) m/uL Hgb (11.4-16.0) gm/dL Hct (34.0-46.0) % RDW (11.5-15.5) % Sodium (137-145) mmol/L Chloride (98-107) mmol/L BUN (7-17) mg/dL Creatinine (0.52-1.04) mg/dL Glucose (74-99) mg/dL POC Glucose (mg/dL) 455 H 457 H 245 H (75-99) mg/dL 11/07/21 11/07/21 11/07/21 Range/Units 06:41 07:15 07:15 RBC 2.41 L (3.80-5.40) m/uL Hgb 7.3 L (11.4-16.0) gm/dL Hct 22.2 L (34.0-46.0) % RDW 20.8 H (11.5-15.5) % Sodium 128 L (137-145) mmol/L Chloride 92 L (98-107) mmol/L BUN 37 H (7-17) mg/dL Creatinine 4.23 H (0.52-1.04) mg/dL Glucose 236 H (74-99) mg/dL POC Glucose (mg/dL) 240 H (75-99) mg/dL Assessment and Plan Plan: Assessment: 1. End-stage renal disease maintained on hemodialysis on Monday schedule. 2. Hypertensive emergency with volume overload. Improved. 3. Acute on chronic diastolic CHF with moderate to severe tricuspid regurgitation and pulmonary hypertension. 4. History of pericardial effusion. 5. Chronic hyperkalemia secondary to chronic kidney disease and hyperglycemia. Potassium 6.1 today due to hyperglycemia. 6. Diabetes mellitus. 7. 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 Phosphorus 4.8 dated 11/03/2021. 8. Anemia of chronic kidney disease. Iron replete. On Aranesp. 9. Hypertonic hyponatremia. Hypervolemic. 10. Volume overload. Improving with daily ultrafiltration. Plan: Patient underwent daily hemodialysis this week. Hold today. Plan for treatment tomorrow. Blood sugar control. 1500 mL fluid restriction. Maintain current antihypertensives. Avoid hydralazine and minoxidil due to pericardial effusion. Avoid CHANDA inhibitor or angiotensin receptor blockers due to chronic hyperkalemia. Patient has been strongly advised to be compliant with her home medications and dialysis treatments outpatient. Life-threatening risks of noncompliance, including , have been discussed with the patient with times.
[2021-11-07] MEDS: CLEVIDIPINE BUTYRATE 25 MG in EMPTY BAG 1 BAG IV SCH (10:19)
[2021-11-07] MEDS: cloNIDine HCL 0.1 MG TAB PO SCH ×3 (10:24→17:24)
[2021-11-07] MEDS: HEPARIN SODIUM,PORCINE/PF 5,000 UNIT/0.5 ML SYRINGE SQ SCH ×2 (10:24→21:41)
[2021-11-07] MEDS: ASPIRIN 81 MG PO SCH (10:25)
[2021-11-07] MEDS: CYANOCOBALAMIN 500 MCG TAB PO SCH (10:25)
[2021-11-07] MEDS: INSULIN DETEMIR (LEVEMIR) 100 UNIT/ML SYR SQ SCH ×2 (10:25→21:41)
[2021-11-07] MEDS: ERGOCALCIFEROL 1,250 MCG (50,000 IU) CAPSULE PO SCH (10:26)
[2021-11-07] MEDS: ATORVASTATIN 40 MG TAB PO SCH (10:26)
[2021-11-07] MEDS: ESCITALOPRAM 20 MG TAB PO SCH (10:26)
[2021-11-07 10:32] LABS: Glucose,Whole Blood 275 mg/dL (75-99)
[2021-11-07 11:13] LABS: Glucose,Whole Blood 339 mg/dL (75-99)
--- NOTE | 2021-11-07 11:14 | P.PN ---
Subjective Progress Note Date: 11/07/21 This is Emerson Petit NP, I'm dictating on behalf of Dr. Hairston's H&P and A&P. Patient was interviewed and examined. Patient is a pleasant 30-year-old female who initially presented to the hospital with hypertensive crisis. Patient today states that she's feeling okay, however does state that she is somewhat tired. Her blood pressures are within normal limits today. GENERAL: Well-appearing, well-nourished and in no acute distress. NECK: Supple without JVD or thyromegaly. LUNGS: Breath sounds clear to auscultation bilaterally. Respiration equal and unlabored. No wheezes, rales or rhonchi. HEART: Regular rate and rhythm without murmurs, rubs or gallops. S1 and S2 heard. EXTREMITIES: Normal range of motion, no edema. No clubbing or cyanosis. Peripheral pulses intact and strong. VITALS: Temp 99.1, pulse 71, respirations 21, blood pressure 105/67, O2 saturation 91% on 2 L via nasal cannula. TELEMETRY: Normal sinus rhythm LABS: White count 6.2, hemoglobin 7.3, sodium 128, potassium 4.6, B1 37, creatinine 4.23 IMPRESSION/PLAN: 1. Hypertensive crisis-no change to patient's medications at this time, patient should continue on carvedilol 50 mg twice a day, clonidine 0.3 mg 3 times a day, nifedipine 120 mg daily. Continue aspirin and statin. 2. Chest pain, secondary to hypertension-resolved. 3. End-stage renal disease, on dialysis 4. Chronic diastolic heart failure, secondary to end-stage renal disease 5. Uncontrolled diabetes Further recommendations will be made based on the patient's clinical course. Objective - Vital Signs Vital signs: Vital Signs Temp 98.4 F 11/07/21 04:00 Pulse 71 11/07/21 07:00 Resp 26 H 11/07/21 07:00 BP 102/62 11/07/21 07:00 Pulse Ox 93 L 11/07/21 07:08 FiO2 Intake & Output 11/06/21 11/07/21 11/07/21 18:59 06:59 18:59 Intake Total 912 1120 Output Total 3000 0 Balance -2087 1120 Intake: IV 30 Sodium Chloride 0.9% 1, 30 000 ml @ 20 mls/hr IV . Q24H [facility] Rx#:[id number] Oral 582 1120 Hemodialysis 300 Output: Urine 0 0 Hemodialysis 3000 Other: Voiding Method Toilet Toilet - Labs CBC & Chem 7: 11/07/21 07:15 11/07/21 07:15 Labs: Abnormal Lab Results - Last 24 Hours (Table) 11/06/21 11/06/21 11/06/21 Range/Units 11:23 16:33 19:54 RBC (3.80-5.40) m/uL Hgb (11.4-16.0) gm/dL Hct (34.0-46.0) % RDW (11.5-15.5) % Sodium (137-145) mmol/L Chloride (98-107) mmol/L BUN (7-17) mg/dL Creatinine (0.52-1.04) mg/dL Glucose (74-99) mg/dL POC Glucose (mg/dL) 267 H 127 H 422 H (75-99) mg/dL 11/07/21 11/07/21 11/07/21 Range/Units 01:36 01:38 03:55 RBC (3.80-5.40) m/uL Hgb (11.4-16.0) gm/dL Hct (34.0-46.0) % RDW (11.5-15.5) % Sodium (137-145) mmol/L Chloride (98-107) mmol/L BUN (7-17) mg/dL Creatinine (0.52-1.04) mg/dL Glucose (74-99) mg/dL POC Glucose (mg/dL) 455 H 457 H 245 H (75-99) mg/dL 11/07/21 11/07/21 11/07/21 Range/Units 06:41 07:15 07:15 RBC 2.41 L (3.80-5.40) m/uL Hgb 7.3 L (11.4-16.0) gm/dL Hct 22.2 L (34.0-46.0) % RDW 20.8 H (11.5-15.5) % Sodium 128 L (137-145) mmol/L Chloride 92 L (98-107) mmol/L BUN 37 H (7-17) mg/dL Creatinine 4.23 H (0.52-1.04) mg/dL Glucose 236 H (74-99) mg/dL POC Glucose (mg/dL) 240 H (75-99) mg/dL
--- NOTE | 2021-11-07 15:03 | PN ---
PROGRESS NOTE DATE OF SERVICE: 11/07/2021 CHIEF COMPLAINT: Renal failure, malignant hypertension. HISTORY OF PRESENT ILLNESS: This lady has been fairly stable, but blood sugars continue to fluctuate. She continues to be dialyzed. She has no other complaints. PHYSICAL EXAMINATION: Chest is clear. Cardiac exam is normal. Vital signs are normal at this time. Abdomen is soft, nontender. IMPRESSION: 1. Stage 5 CKD, on dialysis. 2. Labile hypertension. 3. Labile type 1 insulin-dependent diabetes mellitus. 4. Blindness due to diabetic retinopathy. PLAN: Continue with her dialysis and efforts to stabilize both her blood pressure and her blood sugars. MMODL / IJN: [id number] /
[2021-11-07 16:39] LABS: Glucose,Whole Blood 240 mg/dL (75-99)
[2021-11-07] MEDS: SODIUM CHLORIDE 0.9% 1,000 ML IV SCH (18:13)
[2021-11-07] MEDS ORDERED: cloNIDine HCL 0.1 MG TAB PO ONE (19:30)
[2021-11-07] MEDS ORDERED: carvediloL 12.5 MG TAB PO ONE (21:00)
[2021-11-07 21:04] LABS: Glucose,Whole Blood 142 mg/dL (75-99)
[2021-11-07] MEDS: MELATONIN 5 MG TABLET PO PRN (21:44)
[2021-11-08] MEDS ORDERED: cloNIDine HCL 0.1 MG TAB PO ONE
[2021-11-08 02:15] LABS: Glucose,Whole Blood 199 mg/dL (75-99)
[2021-11-08] MEDS: HYDROmorphone 1 MG/ML 1 ML SYRINGE IVP PRN ×5 (05:57→23:30)
[2021-11-08] MEDS: diphenhydrAMINE 50 MG/ML 1 ML VIAL IVP PRN ×5 (05:57→23:29)
[2021-11-08 06:51] LABS: Glucose,Whole Blood 284 mg/dL (75-99)
[2021-11-08] MEDS: PANTOPRAZOLE 40 MG TABLET PO SCH (06:52)
[2021-11-08] MEDS: CALCIUM ACETATE 667 MG TAB PO SCH ×3 (06:52→16:47)
[2021-11-08] MEDS: INSULIN ASPART (NovoLOG) 100 UNIT/ML VIAL SQ SCH ×4 (06:52→20:19)
[2021-11-08] MEDS: carvediloL 12.5 MG TAB PO SCH ×2 (06:52→16:48)
[2021-11-08] MEDS: LORazepam 1 MG TAB PO PRN ×3 (08:11→23:30)
[2021-11-08] MEDS ORDERED: diphenhydrAMINE 50 MG/ML 1 ML VIAL IVP STA (08:14)
[2021-11-08 08:36] LABS: Calcium 8.7 mg/dL (8.4-10.2); Potassium 4.6 mmol/L (3.5-5.1)
[2021-11-08 09:17] LABS: Anisocytosis Moderate; Hypochromasia Slight; MCH 31.3 pg (25.0-35.0); MCHC 33.5 g/dL (31.0-37.0); MCV 93.5 fL (80.0-100.0); Macrocytosis Slight; Mean Platelet Volume 10.2; Platelet Count 221 k/uL (150-450); Poikilocytosis Slight; RBC 2.25 m/uL (3.80-5.40); RDW 21.2 % (11.5-15.5); WBC 4.7 k/uL (3.8-10.6)
--- NOTE | 2021-11-08 09:54 | P.PN ---
Subjective Patient is being followed by cardiology because of severe uncontrolled hypertension. Has end-stage renal disease and is on dialysis for the same. She complains of the cough and a tickle in her throat this morning. Does not have any chest pain or difficulty in breathing. Blood pressures are well controlled on Catapres 0.3 mg 3 times a day Coreg 50 mg twice a day and Procardia XL 120 mg daily. The plan is to continue the same. On exam patient is comfortable at rest vital signs are stable chest exam reveals good air entry bilaterally heart exam reveals first and second heart sounds S4 is heard abdomen is soft exam extremities did not reveal any edema per for pulses are felt Labs showed a hemoglobin of 7. Potassium is 4.6. BNP is 61. Creatinine is 7. Assessment and plan: Severe uncontrolled hypertension End-stage renal disease and hemodialysis I will continue the patient on current medications Objective - Vital Signs Vital signs: Vital Signs Temp 97.4 F L 11/08/21 08:00 Pulse 75 11/08/21 09:30 Resp 20 11/08/21 09:30 BP 131/76 11/08/21 09:30 Pulse Ox 99 11/08/21 09:30 FiO2 Intake & Output 11/07/21 11/08/21 11/08/21 18:59 06:59 18:59 Intake Total 780 522 500 Output Total 0 0 0 Balance 780 522 500 Intake: IV 60 Sodium Chloride 0.9% 1, 60 000 ml @ 20 mls/hr IV . Q24H [facility] BEDS AT [facility] Rx#:[id number] Oral 720 522 500 Output: Urine 0 0 0 Other: Voiding Method Toilet Toilet - Labs CBC & Chem 7: 11/08/21 07:45 11/08/21 07:45 Labs: Abnormal Lab Results - Last 24 Hours (Table) 11/07/21 11/07/21 11/07/21 Range/Units 10:30 11:12 16:38 RBC (3.80-5.40) m/uL Hgb (11.4-16.0) gm/dL Hct (34.0-46.0) % RDW (11.5-15.5) % Sodium (137-145) mmol/L Chloride (98-107) mmol/L Carbon Dioxide (22-30) mmol/L BUN (7-17) mg/dL Creatinine (0.52-1.04) mg/dL Glucose (74-99) mg/dL POC Glucose (mg/dL) 275 H 339 H 240 H (75-99) mg/dL 11/07/21 11/08/21 11/08/21 Range/Units 21:02 02:13 06:49 RBC (3.80-5.40) m/uL Hgb (11.4-16.0) gm/dL Hct (34.0-46.0) % RDW (11.5-15.5) % Sodium (137-145) mmol/L Chloride (98-107) mmol/L Carbon Dioxide (22-30) mmol/L BUN (7-17) mg/dL Creatinine (0.52-1.04) mg/dL Glucose (74-99) mg/dL POC Glucose (mg/dL) 142 H 199 H 284 H (75-99) mg/dL 11/08/21 11/08/21 Range/Units 07:45 07:45 RBC 2.25 L (3.80-5.40) m/uL Hgb 7.0 L (11.4-16.0) gm/dL Hct 21.0 L (34.0-46.0) % RDW 21.2 H (11.5-15.5) % Sodium 124 L (137-145) mmol/L Chloride 90 L (98-107) mmol/L Carbon Dioxide 19 L (22-30) mmol/L BUN 61 H (7-17) mg/dL Creatinine 6.92 H (0.52-1.04) mg/dL Glucose 218 H (74-99) mg/dL POC Glucose (mg/dL) (75-99) mg/dL
--- NOTE | 2021-11-08 10:46 | P.PN ---
Subjective Progress Note Date: 11/08/21 Principal diagnosis: Hypertensive emergency 11/02/2021, the patient got transferred back to the intensive care unit. We are going to see this patient in consultation. The patient was in a medical floor. She is a type I diabetic and she has also retinopathy and she is legally blind along with neuropathy and she also has end-stage renal disease on hemodialysis 3 times a week. She has had previous CVA and pericardial effusion she has had also multiple admissions to the hospital. During this most recent hospitalization, the patient was having some issues with blood pressure and chest pain. Her blood pressure was quite elevated. This was regulated and the patient got dialyzed and her last dialysis was yesterday. Her chest x-ray was revealing some cardiomegaly and microvascular congestion. The patient transferred to the intensive care unit this morning because of hyperglycemia and the sugar was above 700. The patient also had a potassium level of 7.1 with a sodium level of 127. This was a significant drop compared to yesterday and for that reason the patient is having an emergent dialysis today. She is currently on room air oxygen. She is getting a blood pressure 162/87. She is free of any chest pain. She is maintained on a combination of Coreg, clonidine, Procardia and Nitro-Bid for blood pressure control. Her cardiac rhythm is sinus. 11/07/21 the patient has an adequate blood pressure control. He underwent hemodialysis yesterday and the patient had another 3 L of fluid removed. She did well with that and the blood pressures under good control with a combination of clonidine, Procardia, leg and lisinopril subsequently, the lisinopril was discontinued by nephrology due to concerns of hyperkalemia. Meanwhile, we still have a major issue with this patient's blood sugar control. I reviewed a series of Accu-Cheks and it is very difficult to establish Her Blood Sugar Control. I Do See a Bouts of Hypoglycemia That Occurred at around Midnight with a Sugar of 46. Subsequent Blood Sugars Came at 400 Range and Then It Dropped and Then It Came up to 400s Range and Most Recent Blood Sugar from This Morning Is around 240. The Patient Is Receiving Levemir Insulin 5 Units Twice a Day and the Patient Is Also on NovoLog Sliding Scale Coverage. Her Diet Is Somewhat Irregular and the Patient Is Receiving 3 Meals. The patient has a blood work that showed a hemoglobin of 7.3 today with her white cell count of 6.2. Sodium is 128 and the potassium level is at 4.6. He is a 37 with a creatinine of 4.2. His resting comfortably in bed. She has no specific complaints. Terms of oxygenation, the patient's pulse ox is 93% 2 L of oxygen by nasal cannula. We'll may need further advice from endocrinology regarding this patient's blood sugar management and control. Otherwise, no nausea, no emesis, no altered mentation and no other significant events over the past 24 hours. Patient was reevaluated today on 11/08/21, patient remains in the ICU, she is in the process of receiving hemodialysis during my evaluation. Patient is on 2 L nasal cannula, her O2 sats is 100%. She is hardly any drips, patient seems to be doing fairly well, her blood pressure seems to be better controlled, on her medications were reviewed including all the blood pressure medications. And I recommended that to transfer the patient out of the ICU after hemodialysis. Patient could be transferred to a monitor bed on selective. And she will be followed by her primary care physician and by other consultants on the case. Pulmonary-keith, no issues. Objective - Vital Signs Vital signs: Vital Signs Temp 97.4 F L 11/08/21 08:00 Pulse 75 11/08/21 09:30 Resp 20 11/08/21 09:30 BP 131/76 11/08/21 09:30 Pulse Ox 99 11/08/21 09:30 FiO2 Intake & Output 11/07/21 11/08/21 11/08/21 18:59 06:59 18:59 Intake Total 780 522 500 Output Total 0 0 0 Balance 780 522 500 Intake: IV 60 Sodium Chloride 0.9% 1, 60 000 ml @ 20 mls/hr IV . Q24H [facility] Rx#:[id number] Oral 720 522 500 Output: Urine 0 0 0 Other: Voiding Method Toilet Toilet - Exam Physical Exam: Revealed a 30-year-old female in no distress. Head: Atraumatic, normocephalic. HEENT:[Neck is supple.] [No neck masses.] [No thyromegaly.] [No JVD.] Chest: [Clear throughout, no crackles, no rhonchi, no wheezes.] Cardiac Exam: [Normal S1 and S2, no S3 gallop, no murmur.] Abdomen: [Soft, nontender, no megaly, no rebound, no guarding, normal bowel sounds.] Extremities: [No clubbing, no edema, no cyanosis.] AV fistula noted in the left forearm. Neurological Exam: [No focal neurologic deficit.] Alert and oriented 3. Psychiatric: Normal mood, affect and normal mental status examination. : No rashes. - Labs CBC & Chem 7: 11/08/21 07:45 11/08/21 07:45 Labs: Abnormal Lab Results - Last 24 Hours (Table) 11/07/21 11/07/21 11/07/21 Range/Units 11:12 16:38 21:02 RBC (3.80-5.40) m/uL Hgb (11.4-16.0) gm/dL Hct (34.0-46.0) % RDW (11.5-15.5) % Sodium (137-145) mmol/L Chloride (98-107) mmol/L Carbon Dioxide (22-30) mmol/L BUN (7-17) mg/dL Creatinine (0.52-1.04) mg/dL Glucose (74-99) mg/dL POC Glucose (mg/dL) 339 H 240 H 142 H (75-99) mg/dL 11/08/21 11/08/21 11/08/21 Range/Units 02:13 06:49 07:45 RBC 2.25 L (3.80-5.40) m/uL Hgb 7.0 L (11.4-16.0) gm/dL Hct 21.0 L (34.0-46.0) % RDW 21.2 H (11.5-15.5) % Sodium (137-145) mmol/L Chloride (98-107) mmol/L Carbon Dioxide (22-30) mmol/L BUN (7-17) mg/dL Creatinine (0.52-1.04) mg/dL Glucose (74-99) mg/dL POC Glucose (mg/dL) 199 H 284 H (75-99) mg/dL 11/08/21 Range/Units 07:45 RBC (3.80-5.40) m/uL Hgb (11.4-16.0) gm/dL Hct (34.0-46.0) % RDW (11.5-15.5) % Sodium 124 L (137-145) mmol/L Chloride 90 L (98-107) mmol/L Carbon Dioxide 19 L (22-30) mmol/L BUN 61 H (7-17) mg/dL Creatinine 6.92 H (0.52-1.04) mg/dL Glucose 218 H (74-99) mg/dL POC Glucose (mg/dL) (75-99) mg/dL Assessment and Plan Assessment: Impression: Hypertensive emergency, resolved. Acute pulmonary edema secondary to hypertensive emergency, resolved. Type 1 diabetes with hyperglycemia presently under control. Mild troponin leak. End-stage renal disease, on hemodialysis. Chronic anemia. History of CVA/TIA. History of COVID-19 infection in May 30. Recommendation: Patient was seen and evaluated in the ICU Her medications were reviewed and no changes were made. We'll arrange for the patient to be transferred out of the ICU to a monitor bed on selective Continue hemodialysis. Ambulate. We will continue to follow as needed. Time with Patient: Less than 30
[2021-11-08] MEDS: INSULIN DETEMIR (LEVEMIR) 100 UNIT/ML SYR SQ SCH ×2 (10:48→20:19)
[2021-11-08] MEDS: HEPARIN SODIUM,PORCINE/PF 5,000 UNIT/0.5 ML SYRINGE SQ SCH ×2 (10:48→19:54)
[2021-11-08] MEDS: ASPIRIN 81 MG PO SCH (10:48)
[2021-11-08] MEDS: CYANOCOBALAMIN 500 MCG TAB PO SCH (10:48)
[2021-11-08] MEDS: ESCITALOPRAM 20 MG TAB PO SCH (10:49)
[2021-11-08] MEDS: ATORVASTATIN 40 MG TAB PO SCH (10:49)
[2021-11-08] MEDS: CLEVIDIPINE BUTYRATE 25 MG in EMPTY BAG 1 BAG IV SCH (10:55)
[2021-11-08] MEDS: cloNIDine HCL 0.1 MG TAB PO SCH ×3 (11:27→19:54)
[2021-11-08 11:51] LABS: Glucose,Whole Blood 167 mg/dL (75-99)
--- NOTE | 2021-11-08 12:36 | P.PN ---
Subjective Patient is seen for follow-up for end-stage renal disease. She was admitted with uncontrolled hypertension and volume overload. Next Overall feeling better. Status post hemodialysis today with UF of 4.3 L today. Objective - Vital Signs Vital signs: Vital Signs Temp 98.1 F 11/08/21 11:33 Pulse 75 11/08/21 11:33 Resp 18 11/08/21 11:33 BP 127/74 11/08/21 11:33 Pulse Ox 99 11/08/21 09:30 FiO2 Intake & Output 11/07/21 11/08/21 11/08/21 18:59 06:59 18:59 Intake Total 780 522 800 Output Total 0 0 4300 Balance 780 522 -3500 Intake: IV 60 Sodium Chloride 0.9% 1, 60 000 ml @ 20 mls/hr IV . Q24H [facility] Rx#:[id number] Oral 720 522 500 Hemodialysis 300 Output: Urine 0 0 0 Hemodialysis 4300 Other: Voiding Method Toilet Toilet - Exam Awake, comfortable, not in any acute distress Examination of the heart S1 and S2 Examination lungs bilateral breath sounds are heard Abdomen is soft nontender Examination lower extremity shows no significant edema [employer] exam grossly intact patient is legally blind - Labs CBC & Chem 7: 11/08/21 07:45 11/08/21 07:45 Labs: Abnormal Lab Results - Last 24 Hours (Table) 11/07/21 11/07/21 11/08/21 Range/Units 16:38 21:02 02:13 RBC (3.80-5.40) m/uL Hgb (11.4-16.0) gm/dL Hct (34.0-46.0) % RDW (11.5-15.5) % Sodium (137-145) mmol/L Chloride (98-107) mmol/L Carbon Dioxide (22-30) mmol/L BUN (7-17) mg/dL Creatinine (0.52-1.04) mg/dL Glucose (74-99) mg/dL POC Glucose (mg/dL) 240 H 142 H 199 H (75-99) mg/dL 11/08/21 11/08/21 11/08/21 Range/Units 06:49 07:45 07:45 RBC 2.25 L (3.80-5.40) m/uL Hgb 7.0 L (11.4-16.0) gm/dL Hct 21.0 L (34.0-46.0) % RDW 21.2 H (11.5-15.5) % Sodium 124 L (137-145) mmol/L Chloride 90 L (98-107) mmol/L Carbon Dioxide 19 L (22-30) mmol/L BUN 61 H (7-17) mg/dL Creatinine 6.92 H (0.52-1.04) mg/dL Glucose 218 H (74-99) mg/dL POC Glucose (mg/dL) 284 H (75-99) mg/dL 11/08/21 Range/Units 11:50 RBC (3.80-5.40) m/uL Hgb (11.4-16.0) gm/dL Hct (34.0-46.0) % RDW (11.5-15.5) % Sodium (137-145) mmol/L Chloride (98-107) mmol/L Carbon Dioxide (22-30) mmol/L BUN (7-17) mg/dL Creatinine (0.52-1.04) mg/dL Glucose (74-99) mg/dL POC Glucose (mg/dL) 167 H (75-99) mg/dL Assessment and Plan Assessment: 1. End-stage renal disease maintained on hemodialysis on a Monday schedule 2. Hypertensive emergency with volume overload, currently improved with aggressive dialysis and ultrafiltration 3. Acute on chronic diastolic CHF with moderate to severe tricuspid regurgitation and pulmonary hypertension 4. History of pericardial effusion 5. Chronic hyperkalemia associated with CK D and hyperglycemia 6. CK D mineral bone disorder 7. Hypervolemic hyponatremia also hypertonic associated with hyperglycemia Plan: Repeat hemodialysis in a.m. with goal UF of about 4 L
[2021-11-08 16:39] LABS: Glucose,Whole Blood 279 mg/dL (75-99)
[2021-11-08] MEDS: SODIUM CHLORIDE 0.9% 1,000 ML IV SCH (16:51)
--- NOTE | 2021-11-08 18:01 | PN ---
PROGRESS NOTE CHIEF COMPLAINT: Hypertensive crisis, chronic renal failure, on dialysis, blindness, and uncontrolled type 1 insulin-dependent diabetes mellitus. HISTORY OF PRESENT ILLNESS: This lady is doing fairly well. There has been very little interval change. Blood sugars are still quite erratic. Blood pressures are under good control. PHYSICAL EXAMINATION: Chest is clear and she is in sinus rhythm. The abdomen is soft and nontender. IMPRESSION: 1. Hypertensive crisis. 2. Stage 5 chronic kidney disease, on dialysis. 3. Diabetic retinopathy with blindness. 4. Uncontrolled blood sugars. PLAN: She is being moved out to a regular floor. MMODL / IJN: [id number] /
[2021-11-08] MEDS: MELATONIN 5 MG TABLET PO PRN (19:54)
[2021-11-08 20:07] LABS: Glucose,Whole Blood 64 mg/dL (75-99)
[2021-11-08 20:24] LABS: Glucose,Whole Blood 72 mg/dL (75-99)
[2021-11-09 02:03] LABS: Glucose,Whole Blood 454 mg/dL (75-99)
[2021-11-09] MEDS: INSULIN DETEMIR (LEVEMIR) 100 UNIT/ML SYR SQ SCH ×3 (02:06→20:25)
[2021-11-09] MEDS: diphenhydrAMINE 50 MG/ML 1 ML VIAL IVP PRN ×5 (04:08→19:51)
[2021-11-09] MEDS: HYDROmorphone 1 MG/ML 1 ML SYRINGE IVP PRN ×5 (04:09→20:55)
[2021-11-09 06:22] LABS: Glucose,Whole Blood >600 mg/dL (75-99)
[2021-11-09 06:22] LABS: Glucose,Whole Blood >600 mg/dL (75-99)
[2021-11-09] MEDS: INSULIN ASPART (NovoLOG) 100 UNIT/ML VIAL SQ SCH ×6 (06:28→20:24)
[2021-11-09 07:34] LABS: Glucose,Whole Blood >600 mg/dL (75-99)
[2021-11-09] MEDS: LORazepam 1 MG TAB PO PRN ×2 (08:15→17:04)
[2021-11-09 08:59] LABS: Glucose,Whole Blood 239 mg/dL (75-99)
[2021-11-09] MEDS: CALCIUM ACETATE 667 MG TAB PO SCH ×3 (10:10→17:04)
[2021-11-09] MEDS: CLEVIDIPINE BUTYRATE 25 MG in EMPTY BAG 1 BAG IV SCH (10:11)
[2021-11-09] MEDS: HEPARIN SODIUM,PORCINE/PF 5,000 UNIT/0.5 ML SYRINGE SQ SCH ×2 (10:14→19:46)
--- NOTE | 2021-11-09 10:57 | P.PN ---
Subjective Patient is seen for follow-up for end-stage renal disease. She was admitted with uncontrolled hypertension and volume overload. Overall feeling better. Seen on hemodialysis today. Objective - Vital Signs Vital signs: Vital Signs Temp 99.9 F H 11/09/21 07:55 Pulse 83 11/09/21 08:00 Resp 18 11/09/21 07:55 BP 119/54 11/09/21 07:55 Pulse Ox 98 11/09/21 07:55 FiO2 Intake & Output 11/08/21 11/09/21 11/09/21 18:59 06:59 18:59 Intake Total 800 485 Output Total 4300 Balance -3500 485 Intake: Oral 500 485 Hemodialysis 300 Output: Urine 0 Hemodialysis 4300 Other: Voiding Method Toilet Toilet # Voids 0 - Exam Awake, comfortable, not in any acute distress Examination of the heart S1 and S2 Examination lungs bilateral breath sounds are heard Abdomen is soft nontender Examination lower extremity shows no significant edema [employer]ER exam grossly intact patient is legally blind - Labs CBC & Chem 7: 11/08/21 07:45 11/08/21 07:45 Labs: Abnormal Lab Results - Last 24 Hours (Table) 11/08/21 11/08/21 11/08/21 Range/Units 11:50 16:38 20:06 POC Glucose (mg/dL) 167 H 279 H 64 L (75-99) mg/dL 11/08/21 11/09/21 11/09/21 Range/Units 20:23 02:01 06:19 POC Glucose (mg/dL) 72 L 454 H >600 H (75-99) mg/dL 11/09/21 11/09/21 11/09/21 Range/Units 06:20 07:31 08:58 POC Glucose (mg/dL) >600 H >600 H 239 H (75-99) mg/dL Assessment and Plan Assessment: 1. End-stage renal disease maintained on hemodialysis on a Monday schedule 2. Hypertensive emergency with volume overload, currently improved with aggressive dialysis and ultrafiltration 3. Acute on chronic diastolic CHF with moderate to severe tricuspid regurgitation and pulmonary hypertension 4. History of pericardial effusion 5. Chronic hyperkalemia associated with CK D and hyperglycemia 6. CK D mineral bone disorder 7. Hypervolemic hyponatremia also hypertonic associated with hyperglycemia Plan: Repeat hemodialysis in a.m. Check labs in a.m.
[2021-11-09] MEDS: ESCITALOPRAM 20 MG TAB PO SCH (11:01)
[2021-11-09] MEDS: ATORVASTATIN 40 MG TAB PO SCH (11:01)
[2021-11-09] MEDS: carvediloL 12.5 MG TAB PO SCH ×2 (11:01→17:04)
[2021-11-09] MEDS: CYANOCOBALAMIN 500 MCG TAB PO SCH (11:01)
[2021-11-09] MEDS: ASPIRIN 81 MG PO SCH (11:01)
[2021-11-09] MEDS: cloNIDine HCL 0.1 MG TAB PO SCH ×3 (11:02→19:47)
[2021-11-09] MEDS: PANTOPRAZOLE 40 MG TABLET PO SCH (11:02)
[2021-11-09 11:41] LABS: Glucose,Whole Blood 88 mg/dL (75-99)
--- NOTE | 2021-11-09 13:17 | P.PN ---
Subjective Progress Note Date: 11/09/21 HISTORY OF PRESENT ILLNESS: Patient examined this morning at the bedside. Patient denies chest pain or pressure. She denies shortness of breath. Patient's blood pressure stable with a recent reading of 124/65. She is currently undergoing hemodialysis. PHYSICAL EXAM: VITAL SIGNS: Reviewed. GENERAL: Well-developed in no acute distress. NECK: Supple. No JVD or thyromegaly LUNGS: Respirations even and unlabored. Lungs essentially clear to auscultation bilaterally. HEART: Regular rate and rhythm. S1 and S2 heard. EXTREMITIES: Normal range of motion. No clubbing or cyanosis. Peripheral pulses intact. No lower extremity edema ASSESSMENT: Hypertensive emergency End-stage renal disease on hemodialysis Acute on chronic heart failure with preserved ejection fraction Diabetes PLAN: Continue current cardiac medications Monitor blood pressure Hemodialysis per nephrology Further recommendations pending patient course Nurse practitioner note has been reviewed by physician. Signing provider agrees with the documented findings, assessment, and plan of care. Objective - Vital Signs Vital signs: Vital Signs Temp 97.5 F L 11/09/21 11:17 Pulse 79 11/09/21 11:17 Resp 18 11/09/21 11:17 BP 124/65 11/09/21 11:17 Pulse Ox 97 11/09/21 11:00 FiO2 Intake & Output 11/08/21 11/09/21 11/09/21 18:59 06:59 18:59 Intake Total 800 485 300 Output Total 4300 4300 Balance -3500 485 -4000 Intake: Oral 500 485 Hemodialysis 300 300 Output: Urine 0 Hemodialysis 4300 4300 Other: Voiding Method Toilet Toilet # Voids 0 - Labs CBC & Chem 7: 11/08/21 07:45 11/08/21 07:45 Labs: Abnormal Lab Results - Last 24 Hours (Table) 11/08/21 11/08/21 11/08/21 Range/Units 16:38 20:06 20:23 POC Glucose (mg/dL) 279 H 64 L 72 L (75-99) mg/dL 11/09/21 11/09/21 11/09/21 Range/Units 02:01 06:19 06:20 POC Glucose (mg/dL) 454 H >600 H >600 H (75-99) mg/dL 11/09/21 11/09/21 Range/Units 07:31 08:58 POC Glucose (mg/dL) >600 H 239 H (75-99) mg/dL
[2021-11-09 15:11] LABS: Glucose,Whole Blood 46 mg/dL (75-99)
[2021-11-09 15:34] LABS: Glucose,Whole Blood 63 mg/dL (75-99)
[2021-11-09 15:43] LABS: Glucose,Whole Blood 68 mg/dL (75-99)
[2021-11-09] MEDS: SODIUM CHLORIDE 0.9% 1,000 ML IV SCH (15:48)
[2021-11-09 15:57] LABS: Glucose,Whole Blood 93 mg/dL (75-99)
[2021-11-09 16:52] LABS: Glucose,Whole Blood 165 mg/dL (75-99)
[2021-11-09] MEDS: MELATONIN 5 MG TABLET PO PRN (19:47)
[2021-11-09 20:19] LABS: Glucose,Whole Blood 154 mg/dL (75-99)
--- NOTE | 2021-11-09 22:10 | PN ---
PROGRESS NOTE CHIEF COMPLAINT: Malignant hypertension, renal failure and uncontrolled insulin-dependent type 1 diabetes. HISTORY OF PRESENT ILLNESS: This lady is doing fairly well. She is being dialyzed. Sugars are still somewhat erratic and insulins will be changed to see if we can maintain better control. PHYSICAL EXAMINATION: Physical exam is deferred because she is undergoing dialysis. IMPRESSION: 1. Malignant hypertension. 2. Stage 5 chronic kidney disease, on dialysis. 3. Brittle and uncontrolled type 1 insulin-dependent diabetes mellitus. 4. Blindness with secondary retinopathy. PLAN: Continue to try to adjust her insulins. She does have a place to go. She lives with her father and her son. MMODL / IJN: [id number] /
[2021-11-10 01:54] LABS: Glucose,Whole Blood 410 mg/dL (75-99)
[2021-11-10] MEDS: diphenhydrAMINE 50 MG/ML 1 ML VIAL IVP PRN ×5 (01:57→20:03)
[2021-11-10] MEDS: LORazepam 1 MG TAB PO PRN ×3 (01:57→20:05)
[2021-11-10] MEDS: HYDROmorphone 1 MG/ML 1 ML SYRINGE IVP PRN ×5 (01:57→20:04)
[2021-11-10 05:56] LABS: Glucose,Whole Blood 471 mg/dL (75-99)
[2021-11-10] MEDS: CALCIUM ACETATE 667 MG TAB PO SCH ×3 (06:20→16:00)
[2021-11-10] MEDS: PANTOPRAZOLE 40 MG TABLET PO SCH (06:20)
[2021-11-10] MEDS: INSULIN ASPART (NovoLOG) 100 UNIT/ML VIAL SQ SCH ×7 (06:20→20:03)
[2021-11-10] MEDS: carvediloL 12.5 MG TAB PO SCH ×2 (06:20→16:00)
[2021-11-10] MEDS: CLEVIDIPINE BUTYRATE 25 MG in EMPTY BAG 1 BAG IV SCH (09:46)
--- NOTE | 2021-11-10 09:47 | P.PN ---
Subjective Patient is seen for follow-up for end-stage renal disease. She was admitted with uncontrolled hypertension and volume overload. Overall feeling better. Getting daily dialysis/ultrafiltration for volume overload. UF 4.3 L yesterday Objective - Vital Signs Vital signs: Vital Signs Temp 98.1 F 11/09/21 20:00 Pulse 79 11/10/21 08:00 Resp 16 11/10/21 08:00 BP 129/72 11/10/21 04:00 Pulse Ox 95 11/10/21 04:00 FiO2 Intake & Output 11/09/21 11/10/21 11/10/21 18:59 06:59 18:59 Intake Total 984 485 221 Output Total 4300 Balance -3316 485 221 Weight 54.1 kg 50.5 kg Intake: Oral 684 485 221 Hemodialysis 300 Output: Hemodialysis 4300 Other: Voiding Method Toilet Toilet Toilet # Voids 0 - Exam Awake, comfortable, not in any acute distress Examination of the heart S1 and S2 Examination lungs bilateral breath sounds are heard Abdomen is soft nontender Examination lower extremity shows no significant edema [employer] F[employer]ICATOR exam grossly intact patient is legally blind - Labs CBC & Chem 7: 11/08/21 07:45 11/08/21 07:45 Labs: Abnormal Lab Results - Last 24 Hours (Table) 11/09/21 11/09/21 11/09/21 Range/Units 15:05 15: 15:39 POC Glucose (mg/dL) 46 L 63 L 68 L (75-99) mg/dL 11/09/21 11/09/21 11/10/21 Range/Units 16:48 20:14 01:52 POC Glucose (mg/dL) 165 H 154 H 410 H (75-99) mg/dL 11/10/21 Range/Units 05:52 POC Glucose (mg/dL) 471 H (75-99) mg/dL Assessment and Plan Assessment: 1. End-stage renal disease maintained on hemodialysis on a Monday schedule 2. Hypertensive emergency with volume overload, currently improved with aggressive dialysis and ultrafiltration 3. Acute on chronic diastolic CHF with moderate to severe tricuspid regurgitation and pulmonary hypertension 4. History of pericardial effusion 5. Chronic hyperkalemia associated with CK D and hyperglycemia 6. CK D mineral bone disorder 7. Hypervolemic hyponatremia also hypertonic associated with hyperglycemia Plan: Hemodialysis today. Check electrolytes
[2021-11-10 09:49] LABS: Potassium 4.4 mmol/L (3.5-5.1)
[2021-11-10] MEDS: INSULIN DETEMIR (LEVEMIR) 100 UNIT/ML SYR SQ SCH ×3 (09:51→20:03)
[2021-11-10] MEDS: HEPARIN SODIUM,PORCINE/PF 5,000 UNIT/0.5 ML SYRINGE SQ SCH ×2 (09:51→20:05)
[2021-11-10] MEDS: CYANOCOBALAMIN 500 MCG TAB PO SCH (09:51)
[2021-11-10] MEDS: ATORVASTATIN 40 MG TAB PO SCH (09:52)
[2021-11-10] MEDS: ASPIRIN 81 MG PO SCH (09:52)
[2021-11-10] MEDS: ESCITALOPRAM 20 MG TAB PO SCH (09:52)
[2021-11-10 11:36] LABS: Glucose,Whole Blood 274 mg/dL (75-99)
[2021-11-10] MEDS: cloNIDine HCL 0.1 MG TAB PO SCH ×3 (12:46→20:08)
--- NOTE | 2021-11-10 13:09 | P.PN ---
Subjective Progress Note Date: 11/10/21 HISTORY OF PRESENT ILLNESS: Patient examined this morning at the bedside. Patient denies chest pain or pressure. She denies shortness of breath. Patient's blood pressure stable with a recent reading of 124/65. She is currently undergoing hemodialysis. 11/10/2021 Patient examined this morning at the bedside. She denies chest pain or pressure. She denies SOB. Patient states she is supposed to have hemodialysis today. Vital signs stable. PHYSICAL EXAM: VITAL SIGNS: Reviewed. GENERAL: Well-developed in no acute distress. NECK: Supple. No JVD or thyromegaly LUNGS: Respirations even and unlabored. Lungs essentially clear to auscultation bilaterally. HEART: Regular rate and rhythm. S1 and S2 heard. EXTREMITIES: Normal range of motion. No clubbing or cyanosis. Peripheral pulses intact. No lower extremity edema ASSESSMENT: Hypertensive emergency End-stage renal disease on hemodialysis Acute on chronic heart failure with preserved ejection fraction Diabetes PLAN: Continue current cardiac medications Monitor blood pressure Hemodialysis per nephrology Further recommendations pending patient course Nurse practitioner note has been reviewed by physician. Signing provider agrees with the documented findings, assessment, and plan of care. Objective - Vital Signs Vital signs: Vital Signs Temp 98 F 11/10/21 08:00 Pulse 79 11/10/21 12:41 Resp 16 11/10/21 12:41 BP 115/67 11/10/21 08:00 Pulse Ox 94 L 11/10/21 08:00 FiO2 Intake & Output 11/09/21 11/10/21 11/10/21 18:59 06:59 18:59 Intake Total 984 485 443 Output Total 4300 Balance -3316 485 443 Weight 54.1 kg 50.5 kg Intake: Oral 684 485 443 Hemodialysis 300 Output: Hemodialysis 4300 Other: Voiding Method Toilet Toilet Toilet # Voids 0 - Labs CBC & Chem 7: 11/08/21 07:45 11/10/21 09:02 Labs: Abnormal Lab Results - Last 24 Hours (Table) 11/09/21 11/09/21 11/09/21 Range/Units 15:05 15:22 15:39 Sodium (137-145) mmol/L Chloride (98-107) mmol/L POC Glucose (mg/dL) 46 L 63 L 68 L (75-99) mg/dL 11/09/21 11/09/21 11/10/21 Range/Units 16:48 20:14 01:52 Sodium (137-145) mmol/L Chloride (98-107) mmol/L POC Glucose (mg/dL) 165 H 154 H 410 H (75-99) mg/dL 11/10/21 11/10/21 11/10/21 Range/Units 05:52 09:02 11:34 Sodium 133 L (137-145) mmol/L Chloride 95 L (98-107) mmol/L POC Glucose (mg/dL) 471 H 274 H (75-99) mg/dL
[2021-11-10] MEDS: SODIUM CHLORIDE 0.9% 1,000 ML IV SCH (15:56)
[2021-11-10 16:49] LABS: Glucose,Whole Blood 159 mg/dL (70-110)
--- NOTE | 2021-11-10 19:13 | PN ---
PROGRESS NOTE CHIEF COMPLAINT: Uncontrolled hypertension, uncontrolled diabetes, renal failure, blindness. HISTORY OF PRESENT ILLNESS: This lady has been stable. She is being dialyzed. Sugars of leveled out somewhat and her insulin will gradually be increased. PHYSICAL EXAMINATION: Chest is clear. Cardiac exam is normal. IMPRESSION: 1. Malignant hypertension. 2. Stage 5 CKD, on dialysis. 3. Blindness. 4. Uncontrolled type 1 diabetes mellitus. PLAN: Raise the Levemir to 8 units twice a day and continue to follow. MMODL / IJN: [id number] /
[2021-11-10 19:38] LABS: Glucose,Whole Blood 327 mg/dL (70-110)
[2021-11-10] MEDS: MELATONIN 5 MG TABLET PO PRN (20:05)
[2021-11-11] MEDS: HYDROmorphone 1 MG/ML 1 ML SYRINGE IVP PRN ×6 (00:06→21:54)
[2021-11-11] MEDS: diphenhydrAMINE 50 MG/ML 1 ML VIAL IVP PRN ×6 (00:06→21:54)
[2021-11-11 00:07] LABS: Glucose,Whole Blood 176 mg/dL (70-110)
[2021-11-11 02:04] LABS: Glucose,Whole Blood 148 mg/dL (70-110)
[2021-11-11] MEDS: LORazepam 1 MG TAB PO PRN ×3 (04:23→21:53)
[2021-11-11 07:06] LABS: Glucose,Whole Blood 117 mg/dL (70-110)
[2021-11-11] MEDS: INSULIN ASPART (NovoLOG) 100 UNIT/ML VIAL SQ SCH ×7 (07:06→20:14)
[2021-11-11 10:53] LABS: Glucose,Whole Blood 115 mg/dL (70-110)
[2021-11-11] MEDS: CLEVIDIPINE BUTYRATE 25 MG in EMPTY BAG 1 BAG IV SCH (11:31)
[2021-11-11] MEDS: CALCIUM ACETATE 667 MG TAB PO SCH ×3 (11:31→17:31)
[2021-11-11 11:46] LABS: Glucose,Whole Blood 110 mg/dL (70-110)
--- NOTE | 2021-11-11 12:09 | P.PN ---
Subjective Progress Note Date: 11/11/21 Patient examined resting in bed today receiving dialysis. She denies chest pain or shortness of breath. Blood pressure remains well controlled at 133/69 with a heart rate is 78. Will continue with current cardiac medications Objective - Vital Signs Vital signs: Vital Signs Temp 98.1 F 11/11/21 11:33 Pulse 79 11/11/21 11:33 Resp 17 11/11/21 11:33 BP 127/75 11/11/21 11:33 Pulse Ox 97 11/11/21 11:33 FiO2 Intake & Output 11/10/21 11/11/21 11/11/21 18:59 06:59 18:59 Intake Total 664 560 Output Total 3500 0 Balance -2836 560 0 Intake: Oral 664 560 Output: Urine 0 Hemodialysis 3500 Other: Voiding Method Toilet Toilet # Voids 0 - Exam PHYSICAL EXAM: VITAL SIGNS: Reviewed. GENERAL: Well-developed in no acute distress. HEENT: Head is normocephalic. Pupils are equal, round. Sclerae anicteric. Mucous membranes of the mouth are moist. NECK: Supple. No JVD or thyromegaly RESPIRATORY: Respirations even and unlabored. Lungs diminished to auscultation bilaterally. CARDIO: Regular rate and rhythm. S1 and S2 heard. Fistula of the left upper arm EXTREMITIES: Normal range of motion. No clubbing or cyanosis. Peripheral pulses intact. Negative for bilateral lower extremity edema NEURO: Orientated to person, time, mood is appropriate - Labs CBC & Chem 7: 11/08/21 07:45 11/10/21 09:02 Labs: Abnormal Lab Results - Last 24 Hours (Table) 11/10/21 11/10/21 11/11/21 Range/Units 16:45 19:36 00:05 POC Glucose (mg/dL) 159 H 327 H 176 H (70-110) mg/dL 11/11/21 11/11/21 11/11/21 Range/Units 02:03 07:05 10:51 POC Glucose (mg/dL) 148 H 117 H 115 H (70-110) mg/dL Assessment and Plan Assessment: Hypertensive emergency End-stage renal disease on hemodialysis Acute on chronic heart failure with preserved ejection fraction Diabetes Plan: Continue current cardiac medications Monitor blood pressure Hemodialysis per nephrology Further recommendations based on clinical course The above impression and plan of care have been discussed and directed by the signing physician. Monique Ornelas, nurse practitioner, acting as scribe for signing physician.
[2021-11-11] MEDS: ATORVASTATIN 40 MG TAB PO SCH (12:30)
[2021-11-11] MEDS: cloNIDine HCL 0.1 MG TAB PO SCH ×3 (12:30→21:54)
[2021-11-11] MEDS: ASPIRIN 81 MG PO SCH (12:30)
[2021-11-11] MEDS: ESCITALOPRAM 20 MG TAB PO SCH (12:31)
[2021-11-11] MEDS: CYANOCOBALAMIN 500 MCG TAB PO SCH (12:31)
[2021-11-11] MEDS: PANTOPRAZOLE 40 MG TABLET PO SCH (12:31)
[2021-11-11] MEDS: carvediloL 12.5 MG TAB PO SCH ×2 (12:31→17:31)
[2021-11-11] MEDS: INSULIN DETEMIR (LEVEMIR) 100 UNIT/ML SYR SQ SCH ×2 (12:34→21:55)
[2021-11-11] MEDS: HEPARIN SODIUM,PORCINE/PF 5,000 UNIT/0.5 ML SYRINGE SQ SCH ×2 (12:36→21:53)
--- NOTE | 2021-11-11 13:48 | P.PN ---
Subjective Patient is seen for follow-up for end-stage renal disease. She was admitted with uncontrolled hypertension and volume overload. Overall feeling better. Getting daily dialysis/ultrafiltration for volume overload. UF about 4 L daily Patient is seen on hemodialysis. Tolerating her treatment well. Objective - Vital Signs Vital signs: Vital Signs Temp 97.4 F L 11/11/21 12:30 Pulse 83 11/11/21 12:30 Resp 18 11/11/21 12:30 BP 142/93 11/11/21 12:30 Pulse Ox 97 11/11/21 11:33 FiO2 Intake & Output 11/10/21 11/11/21 11/11/21 18:59 06:59 18:59 Intake Total 664 560 350 Output Total 3500 3839 Balance -2836 560 -3489 Intake: Oral 664 560 Hemodialysis 350 Output: Urine 0 Hemodialysis 3500 3839 Other: Voiding Method Toilet Toilet Toilet # Voids 0 - Exam Awake, comfortable, not in any acute distress Abdomen is soft nontender Examination lower extremity shows no significant edema [employer] OPERATOR exam grossly intact patient is legally blind - Labs CBC & Chem 7: 11/08/21 07:45 11/10/21 09:02 Labs: Abnormal Lab Results - Last 24 Hours (Table) 11/10/21 11/10/21 11/11/21 Range/Units 16:45 19:36 00:05 POC Glucose (mg/dL) 159 H 327 H 176 H (70-110) mg/dL 11/11/21 11/11/21 11/11/21 Range/Units 02:03 07:05 10:51 POC Glucose (mg/dL) 148 H 117 H 115 H (70-110) mg/dL Assessment and Plan Assessment: 1. End-stage renal disease maintained on hemodialysis on a Monday schedule 2. Hypertensive emergency with volume overload, currently improved with aggressive dialysis and ultrafiltration 3. Acute on chronic diastolic CHF with moderate to severe tricuspid regurgitation and pulmonary hypertension 4. History of pericardial effusion 5. Chronic hyperkalemia associated with CK D and hyperglycemia 6. CK D mineral bone disorder 7. Hypervolemic hyponatremia also hypertonic associated with hyperglycemia Plan: Repeat hemodialysis in a.m. Patient can be discharged from nephrology standpoint and follow-up as outpatient for dialysis on Monday.
[2021-11-11 16:47] LABS: Glucose,Whole Blood 474 mg/dL (70-110)
[2021-11-11] MEDS: SODIUM CHLORIDE 0.9% 1,000 ML IV SCH (18:47)
--- NOTE | 2021-11-11 20:06 | PN ---
PROGRESS NOTE Malignant hypertension, stage 5 kidney disease and uncontrolled type 1 diabetes mellitus. HISTORY OF PRESENT ILLNESS: This lady is doing reasonably well. She is still stabilizing on dialysis. Today is the first day that her blood sugar has not seen wide fluctuations. PHYSICAL EXAMINATION: Chest is clear. Cardiac exam is normal. Abdomen is soft, nontender. IMPRESSION: 1. Malignant hypertension. 2. End-stage stage 5 chronic kidney disease, on dialysis. 3. Diabetic retinopathy and total legal blindness. 4. Uncontrolled type 1 insulin-dependent diabetes mellitus. PLAN: Continue with current efforts and she can go home as soon as she is cleared by Nephrology. MMODL / IJN: [id number] /
[2021-11-11 20:14] LABS: Glucose,Whole Blood 76 mg/dL (70-110)
[2021-11-11] MEDS: DOCUSATE 100 MG CAP PO PRN (21:53)
[2021-11-11] MEDS: MELATONIN 5 MG TABLET PO PRN (21:53)
[2021-11-12 01:46] LABS: Glucose,Whole Blood 191 mg/dL (70-110)
[2021-11-12] MEDS: HYDROmorphone 1 MG/ML 1 ML SYRINGE IVP PRN ×5 (02:03→20:38)
[2021-11-12] MEDS: diphenhydrAMINE 50 MG/ML 1 ML VIAL IVP PRN ×4 (02:03→20:38)
[2021-11-12 05:48] LABS: Glucose,Whole Blood 378 mg/dL (70-110)
[2021-11-12] MEDS: LORazepam 1 MG TAB PO PRN ×2 (06:47→15:47)
[2021-11-12] MEDS: INSULIN ASPART (NovoLOG) 100 UNIT/ML VIAL SQ SCH ×7 (06:48→20:37)
[2021-11-12] MEDS: CLEVIDIPINE BUTYRATE 25 MG in EMPTY BAG 1 BAG IV SCH (08:22)
[2021-11-12 10:07] LABS: Albumin 4.1 g/dL (3.5-5.0); Calcium 9.5 mg/dL (8.4-10.2); Potassium 4.5 mmol/L (3.5-5.1); Total Bilirubin 0.4 mg/dL (0.2-1.3); Total Protein 6.9 g/dL (6.3-8.2)
[2021-11-12 10:08] LABS: Anisocytosis Slight; Basophils # (A) 0.1 k/uL (0-0.2); Basophils % (A) 1 %; Eosinophils # (A) 0.2 k/uL (0-0.7); Eosinophils % (A) 3 %; HCT 26.9 % (34.0-46.0); Hypochromasia Slight; Lymphocytes # (A) 0.6 k/uL (1.0-4.8); Lymphocytes % (A) 11 %; MCH 31.6 pg (25.0-35.0); MCHC 34.2 g/dL (31.0-37.0); MCV 92.6 fL (80.0-100.0); Mean Platelet Volume 8.5; Monocytes # (A) 0.6 k/uL (0-1.0); Monocytes % (A) 10 %; Neutrophils # (A) 4.1 k/uL (1.3-7.7); Neutrophils % (A) 72 %; Platelet Count 303 k/uL (150-450); Poikilocytosis Moderate; RBC 2.91 m/uL (3.80-5.40); RDW 18.7 % (11.5-15.5); WBC 5.7 k/uL (3.8-10.6)
[2021-11-12 10:15] LABS: HGB 9.2 gm/dL (11.4-16.0)
--- NOTE | 2021-11-12 10:18 | P.PN ---
Subjective Patient is seen for follow-up for end-stage renal disease. She was admitted with uncontrolled hypertension and volume overload. Overall feeling better. Getting daily dialysis/ultrafiltration for volume overload. UF about 4 L daily No complaints today Scheduled for hemodialysis today Objective - Vital Signs Vital signs: Vital Signs Temp 97.8 F 11/12/21 08:38 Pulse 84 11/12/21 08:38 Resp 16 11/12/21 08:38 BP 122/72 11/12/21 08:38 Pulse Ox 97 11/12/21 08:38 FiO2 Intake & Output 11/11/21 11/12/21 11/12/21 18:59 06:59 18:59 Intake Total 580 Output Total 3839 Balance -3259 Intake: Oral 230 Hemodialysis 350 Output: Urine 0 Hemodialysis 3839 Other: Voiding Method Toilet Toilet Toilet # Voids 0 0 # Bowel Movements 0 - Exam Awake, comfortable, not in any acute distress Abdomen is soft nontender Examination lower extremity shows no significant edema TABLE OPERATOR exam grossly intact patient is legally blind - Labs CBC & Chem 7: 11/12/21 09:33 11/12/21 09:33 Labs: Abnormal Lab Results - Last 24 Hours (Table) 11/11/21 11/11/21 11/12/21 Range/Units 10:51 16:46 01:44 RBC (3.80-5.40) m/uL Hgb (11.4-16.0) gm/dL Hct (34.0-46.0) % RDW (11.5-15.5) % Lymphocytes # (1.0-4.8) k/uL Sodium (137-145) mmol/L Chloride (98-107) mmol/L BUN (7-17) mg/dL Creatinine (0.52-1.04) mg/dL Glucose (74-99) mg/dL POC Glucose (mg/dL) 115 H 474 H 191 H (70-110) mg/dL AST (14-36) U/L ALT (4-34) U/L Alkaline Phosphatase (38-126) U/L 11/12/21 11/12/21 11/12/21 Range/Units 05:46 09:33 09:33 RBC 2.91 L (3.80-5.40) m/uL Hgb 9.2 L D (11.4-16.0) gm/dL Hct 26.9 L (34.0-46.0) % RDW 18.7 H (11.5-15.5) % Lymphocytes # 0.6 L (1.0-4.8) k/uL Sodium 128 L (137-145) mmol/L Chloride 89 L (98-107) mmol/L BUN 43 H (7-17) mg/dL Creatinine 5.05 H (0.52-1.04) mg/dL Glucose 269 H (74-99) mg/dL POC Glucose (mg/dL) 378 H (70-110) mg/dL AST 225 H (14-36) U/L ALT 156 H (4-34) U/L Alkaline Phosphatase 450 H (38-126) U/L Assessment and Plan Assessment: 1. End-stage renal disease maintained on hemodialysis on a Monday schedule 2. Hypertensive emergency with volume overload, currently improved with aggressive dialysis and ultrafiltration 3. Acute on chronic diastolic CHF with moderate to severe tricuspid regurgitation and pulmonary hypertension 4. History of pericardial effusion 5. Chronic hyperkalemia associated with CK D and hyperglycemia 6. CK D mineral bone disorder 7. Hypervolemic hyponatremia also hypertonic associated with hyperglycemia Plan: Repeat hemodialysis today Patient can be discharged postdialysis. She is advised regarding fluid restriction.
[2021-11-12] MEDS: CYANOCOBALAMIN 500 MCG TAB PO SCH (11:16)
[2021-11-12] MEDS: ASPIRIN 81 MG PO SCH (11:16)
[2021-11-12] MEDS: ESCITALOPRAM 20 MG TAB PO SCH (11:16)
[2021-11-12] MEDS: ATORVASTATIN 40 MG TAB PO SCH (11:16)
[2021-11-12] MEDS: HEPARIN SODIUM,PORCINE/PF 5,000 UNIT/0.5 ML SYRINGE SQ SCH ×2 (11:17→20:39)
[2021-11-12] MEDS: PANTOPRAZOLE 40 MG TABLET PO SCH (11:17)
[2021-11-12] MEDS: CALCIUM ACETATE 667 MG TAB PO SCH ×3 (11:17→17:40)
[2021-11-12 11:46] LABS: Glucose,Whole Blood 305 mg/dL (70-110)
--- NOTE | 2021-11-12 12:16 | P.PN ---
Subjective Progress Note Date: 11/12/21 Patient is seen resting comfortably in bed today awaiting dialysis. She denies chest pain or shortness of breath. Blood pressure continues to be well controlled. Will continue with current cardiac medications Objective - Vital Signs Vital signs: Vital Signs Temp 97.6 F 11/12/21 11:14 Pulse 80 11/12/21 11:14 Resp 17 11/12/21 11:14 BP 156/87 11/12/21 11:14 Pulse Ox 98 11/12/21 11:14 FiO2 Intake & Output 11/11/21 11/12/21 11/12/21 18:59 06:59 18:59 Intake Total 580 Output Total 3839 Balance -3259 Intake: Oral 230 Hemodialysis 350 Output: Urine 0 Hemodialysis 3839 Other: Voiding Method Toilet Toilet Toilet # Voids 0 0 # Bowel Movements 0 - Exam PHYSICAL EXAM: VITAL SIGNS: Reviewed. GENERAL: Well-developed in no acute distress. HEENT: Head is normocephalic. Pupils are equal, round. Sclerae anicteric. Mucous membranes of the mouth are moist. NECK: Supple. No JVD or thyromegaly RESPIRATORY: Respirations even and unlabored. Lungs diminished to auscultation bilaterally. CARDIO: Regular rate and rhythm. S1 and S2 heard. Fistula of the left upper arm EXTREMITIES: Normal range of motion. No clubbing or cyanosis. Peripheral pulses intact. Negative for bilateral lower extremity edema NEURO: Orientated to person, time, mood is appropriate - Labs CBC & Chem 7: 11/12/21 09:33 11/12/21 09:33 Labs: Abnormal Lab Results - Last 24 Hours (Table) 11/11/21 11/12/21 11/12/21 Range/Units 16:46 01:44 05:46 RBC (3.80-5.40) m/uL Hgb (11.4-16.0) gm/dL Hct (34.0-46.0) % RDW (11.5-15.5) % Lymphocytes # (1.0-4.8) k/uL Sodium (137-145) mmol/L Chloride (98-107) mmol/L BUN (7-17) mg/dL Creatinine (0.52-1.04) mg/dL Glucose (74-99) mg/dL POC Glucose (mg/dL) 474 H 191 H 378 H (70-110) mg/dL AST (14-36) U/L ALT (4-34) U/L Alkaline Phosphatase (38-126) U/L 11/12/21 11/12/21 11/12/21 Range/Units 09:33 09:33 11:37 RBC 2.91 L (3.80-5.40) m/uL Hgb 9.2 L D (11.4-16.0) gm/dL Hct 26.9 L (34.0-46.0) % RDW 18.7 H (11.5-15.5) % Lymphocytes # 0.6 L (1.0-4.8) k/uL Sodium 128 L (137-145) mmol/L Chloride 89 L (98-107) mmol/L BUN 43 H (7-17) mg/dL Creatinine 5.05 H (0.52-1.04) mg/dL Glucose 269 H (74-99) mg/dL POC Glucose (mg/dL) 305 H (70-110) mg/dL AST 225 H (14-36) U/L ALT 156 H (4-34) U/L Alkaline Phosphatase 450 H (38-126) U/L Assessment and Plan Assessment: Hypertensive emergency End-stage renal disease on hemodialysis Acute on chronic heart failure with preserved ejection fraction Diabetes Plan: Continue current cardiac medications Monitor blood pressure Hemodialysis per nephrology Further recommendations based on clinical course The above impression and plan of care have been discussed and directed by the signing physician. Monique Ornelas, nurse practitioner, acting as scribe for signing physician.
[2021-11-12] MEDS: INSULIN DETEMIR (LEVEMIR) 100 UNIT/ML SYR SQ SCH ×2 (12:25→20:36)
[2021-11-12] MEDS: cloNIDine HCL 0.1 MG TAB PO SCH ×3 (14:08→20:39)
[2021-11-12] MEDS: carvediloL 12.5 MG TAB PO SCH ×2 (14:55→17:40)
[2021-11-12 16:31] LABS: Glucose,Whole Blood 162 mg/dL (70-110)
[2021-11-12] MEDS: DARBEPOETIN ALFA 60 MCG/0.3 ML SYRINGE SQ SCH (17:40)
[2021-11-12] MEDS: SODIUM CHLORIDE 0.9% 1,000 ML IV SCH (17:41)
--- NOTE | 2021-11-12 18:31 | DS ---
DISCHARGE SUMMARY CHIEF COMPLAINT: Hypertensive crisis and renal failure. HISTORY OF PRESENT ILLNESS AND PHYSICAL EXAMINATION: Details of this lady's history and physical can be found in the initial workup. LABORATORY STUDIES: While she was in the hospital she had laboratory studies, details of which can be found in the laboratory section of her chart. COURSE IN THE HOSPITAL: After admission she was placed on bedrest, started on intravenous fluids and placed in the ICU and underwent intensive management of her malignant hypertension. She was dialyzed while she was in the hospital. Hospitalization was difficult because of her persistent dialysis, hyperkalemia, hypertension and uncontrolled brittle type 1 diabetes mellitus. She was finally stabilizing and blood sugars were coming under better control. Blood pressure was down to normal. It was felt that she could be safely discharged home on November 12, but apparently her father was not going to be home when she came, and her discharge was held up until November 13. FINAL DIAGNOSIS: 1. Malignant hypertension. 2. Stage 5 chronic kidney disease, on dialysis. 3. Legal blindness secondary to diabetic retinopathy. 4. Uncontrolled type 1 insulin-dependent diabetes mellitus. OPERATIONS: None. CONSULTATIONS: 1. Intensive Medicine. 2. Nephrology. MMODL / IJN: [id number] /
[2021-11-12 20:34] LABS: Glucose,Whole Blood 481 mg/dL (70-110)
[2021-11-12] MEDS: MELATONIN 5 MG TABLET PO PRN (20:39)
[2021-11-13] MEDS: LORazepam 1 MG TAB PO PRN ×3 (00:10→17:31)
[2021-11-13] MEDS: diphenhydrAMINE 50 MG/ML 1 ML VIAL IVP PRN ×6 (00:10→20:38)
[2021-11-13] MEDS: HYDROmorphone 1 MG/ML 1 ML SYRINGE IVP PRN ×6 (00:10→20:40)
[2021-11-13 00:35] LABS: Glucose,Whole Blood 40 mg/dL (70-110)
[2021-11-13 00:51] LABS: Glucose,Whole Blood 50 mg/dL (70-110)
[2021-11-13 01:06] LABS: Glucose,Whole Blood 69 mg/dL (70-110)
[2021-11-13 01:23] LABS: Glucose,Whole Blood 82 mg/dL (70-110)
[2021-11-13 06:18] LABS: Glucose,Whole Blood 191 mg/dL (70-110)
[2021-11-13] MEDS: PANTOPRAZOLE 40 MG TABLET PO SCH (06:43)
[2021-11-13] MEDS: carvediloL 12.5 MG TAB PO SCH ×2 (06:43→17:31)
[2021-11-13] MEDS: CALCIUM ACETATE 667 MG TAB PO SCH ×3 (06:43→17:31)
[2021-11-13] MEDS: INSULIN ASPART (NovoLOG) 100 UNIT/ML VIAL SQ SCH ×7 (06:43→20:35)
[2021-11-13] MEDS: ATORVASTATIN 40 MG TAB PO SCH (08:46)
[2021-11-13] MEDS: ESCITALOPRAM 20 MG TAB PO SCH (08:46)
[2021-11-13] MEDS: CYANOCOBALAMIN 500 MCG TAB PO SCH (08:46)
[2021-11-13] MEDS: INSULIN DETEMIR (LEVEMIR) 100 UNIT/ML SYR SQ SCH ×2 (08:46→20:40)
[2021-11-13] MEDS: ASPIRIN 81 MG PO SCH (08:46)
[2021-11-13] MEDS: CLEVIDIPINE BUTYRATE 25 MG in EMPTY BAG 1 BAG IV SCH (08:54)
[2021-11-13] MEDS: HEPARIN SODIUM,PORCINE/PF 5,000 UNIT/0.5 ML SYRINGE SQ SCH ×2 (08:54→20:39)
[2021-11-13] MEDS: cloNIDine HCL 0.1 MG TAB PO SCH ×3 (10:07→20:39)
[2021-11-13 11:47] LABS: Glucose,Whole Blood 161 mg/dL (70-110)
[2021-11-13] MEDS: SODIUM CHLORIDE 0.9% 1,000 ML IV SCH (11:53)
--- NOTE | 2021-11-13 13:07 | P.PN ---
Subjective Progress Note Date: 11/13/21 Patient seen today resting comfortably in bed she remains free from chest pain or shortness of breath. Blood pressure remains well controlled. She will have dialysis today Objective - Vital Signs Vital signs: Vital Signs Temp 98.8 F 11/13/21 08:55 Pulse 88 11/13/21 08:55 Resp 16 11/13/21 08:55 BP 109/65 11/13/21 11:48 Pulse Ox 98 11/13/21 08:55 FiO2 Intake & Output 11/12/21 11/13/21 11/13/21 18:59 06:59 18:59 Intake Total 940 845 350 Output Total 3000 2500 Balance -2060 845 -2150 Intake: IV 10 Invasive Line 4 10 Oral 940 845 340 Output: Hemodialysis 3000 2500 Other: Voiding Method Toilet Toilet Toilet # Voids 0 - Exam PHYSICAL EXAM: VITAL SIGNS: Reviewed. GENERAL: Well-developed in no acute distress. HEENT: Head is normocephalic. Pupils are equal, round. Sclerae anicteric. Mucous membranes of the mouth are moist. NECK: Supple. No JVD or thyromegaly RESPIRATORY: Respirations even and unlabored. Lungs diminished to auscultation bilaterally. CARDIO: Regular rate and rhythm. S1 and S2 heard. Fistula of the left upper arm EXTREMITIES: Normal range of motion. No clubbing or cyanosis. Peripheral pulses intact. Negative for bilateral lower extremity edema NEURO: Orientated to person, time, mood is appropriate - Labs CBC & Chem 7: 11/12/21 09:33 11/12/21 09:33 Labs: Abnormal Lab Results - Last 24 Hours (Table) 11/12/21 11/12/21 11/13/21 Range/Units 16:25 20:32 00:31 POC Glucose (mg/dL) 162 H 481 H 40 L (70-110) mg/dL 11/13/21 11/13/21 11/13/21 Range/Units 00:49 01:03 06:16 POC Glucose (mg/dL) 50 L 69 L 191 H (70-110) mg/dL 11/13/21 Range/Units 11:45 POC Glucose (mg/dL) 161 H (70-110) mg/dL Assessment and Plan Assessment: Hypertensive emergency End-stage renal disease on hemodialysis Acute on chronic heart failure with preserved ejection fraction Diabetes Plan: Continue current cardiac medications Monitor blood pressure Hemodialysis per nephrology Further recommendations based on clinical course The above impression and plan of care have been discussed and directed by the signing physician. Monique Ornelas, nurse practitioner, acting as scribe for [facility] physician.
--- NOTE | 2021-11-13 13:38 | P.PN ---
Subjective Patient is seen for follow-up for end-stage renal disease. She was admitted with uncontrolled hypertension and volume overload. Overall feeling better. Getting daily dialysis/ultrafiltration for volume overload. UF about 4 L daily No complaints today Seen on hemodialysis today. Blood pressure was on the lower side today and UF goal is been decreased to about 2 L today. Objective - Vital Signs Vital signs: Vital Signs Temp 98.8 F 11/13/21 08:55 Pulse 88 11/13/21 08:55 Resp 16 11/13/21 08:55 BP 109/65 11/13/21 11:48 Pulse Ox 98 11/13/21 08:55 FiO2 Intake & Output 11/12/21 11/13/21 11/13/21 18:59 06:59 18:59 Intake Total 940 845 350 Output Total 3000 2500 Balance -2060 845 -2150 Intake: IV 10 Invasive Line 4 10 Oral 940 845 340 Output: Hemodialysis 3000 2500 Other: Voiding Method Toilet Toilet Toilet # Voids 0 - Exam Awake, comfortable, not in any acute distress Abdomen is soft nontender Examination lower extremity shows no significant edema WHEEL CLEANER exam grossly intact patient is legally blind - Labs CBC & Chem 7: 11/12/21 09:33 11/12/21 09:33 Labs: Abnormal Lab Results - Last 24 Hours (Table) 11/12/21 11/12/21 11/13/21 Range/Units 16:25 20:32 00:31 POC Glucose (mg/dL) 162 H 481 H 40 L (70-110) mg/dL 11/13/21 11/13/21 11/13/21 Range/Units 00:49 01:03 06:16 POC Glucose (mg/dL) 50 L 69 L 191 H (70-110) mg/dL 11/13/21 Range/Units 11:45 POC Glucose (mg/dL) 161 H (70-110) mg/dL Assessment and Plan Assessment: 1. End-stage renal disease maintained on hemodialysis on a Monday schedule 2. Hypertensive emergency with volume overload, currently improved with aggressive dialysis and ultrafiltration 3. Acute on chronic diastolic CHF with moderate to severe tricuspid regurgitation and pulmonary hypertension 4. History of pericardial effusion 5. Chronic hyperkalemia associated with CK D and hyperglycemia 6. CK D mineral bone disorder 7. Hypervolemic hyponatremia also hypertonic associated with hyperglycemia Plan: Repeat hemodialysis today Patient can be discharged postdialysis. She is advised regarding fluid restriction. Decrease UF to about 2 L today
[2021-11-13 16:40] LABS: Glucose,Whole Blood 229 mg/dL (70-110)
[2021-11-13] MEDS: DOCUSATE 100 MG CAP PO PRN (17:48)
--- NOTE | 2021-11-13 20:15 | PN ---
PROGRESS NOTE CHIEF COMPLAINT: Renal failure. HISTORY OF PRESENT ILLNESS: This lady was discharged yesterday and then asked to stay another night because her father was not home to take care of her. Now she is stating that she wants to wait until Monday. She also states that she cannot get help at home and have her medications sent in problem patient was in the hospital frequently and better arrangements to be made. being reviewed {Large portions of dictation unintelligible; interference of some kind.} MMODL / IJN: [id number] /
[2021-11-13 20:19] LABS: Glucose,Whole Blood 125 mg/dL (70-110)
[2021-11-13] MEDS: MELATONIN 5 MG TABLET PO PRN (20:39)
[2021-11-14] MEDS: diphenhydrAMINE 50 MG/ML 1 ML VIAL IVP PRN ×6 (00:37→20:24)
[2021-11-14] MEDS: HYDROmorphone 1 MG/ML 1 ML SYRINGE IVP PRN ×6 (00:38→20:24)
[2021-11-14] MEDS: LORazepam 1 MG TAB PO PRN ×3 (00:38→16:38)
[2021-11-14 02:02] LABS: Glucose,Whole Blood >600 mg/dL (70-110)
[2021-11-14 02:08] LABS: Glucose,Whole Blood >600 mg/dL (70-110)
[2021-11-14] MEDS ORDERED: INSULIN ASPART (NovoLOG) 100 UNIT/ML VIAL SQ ONE (04:20)
[2021-11-14 05:57] LABS: Glucose,Whole Blood >600 mg/dL (70-110)
[2021-11-14 05:57] LABS: Glucose,Whole Blood >600 mg/dL (70-110)
[2021-11-14] MEDS: CALCIUM ACETATE 667 MG TAB PO SCH ×3 (06:53→16:38)
[2021-11-14] MEDS: carvediloL 12.5 MG TAB PO SCH ×2 (06:53→16:38)
[2021-11-14] MEDS: cloNIDine HCL 0.1 MG TAB PO SCH ×3 (06:53→22:36)
[2021-11-14] MEDS: INSULIN ASPART (NovoLOG) 100 UNIT/ML VIAL SQ SCH ×7 (06:54→22:35)
[2021-11-14] MEDS: ESCITALOPRAM 20 MG TAB PO SCH (08:35)
[2021-11-14] MEDS: ASPIRIN 81 MG PO SCH (08:36)
[2021-11-14] MEDS: ATORVASTATIN 40 MG TAB PO SCH (08:36)
[2021-11-14] MEDS: CYANOCOBALAMIN 500 MCG TAB PO SCH (08:36)
[2021-11-14] MEDS: HEPARIN SODIUM,PORCINE/PF 5,000 UNIT/0.5 ML SYRINGE SQ SCH ×2 (08:36→20:23)
[2021-11-14 08:53] LABS: Glucose,Whole Blood 186 mg/dL (70-110)
[2021-11-14] MEDS: INSULIN DETEMIR (LEVEMIR) 100 UNIT/ML SYR SQ SCH ×2 (09:03→22:35)
[2021-11-14] MEDS: ERGOCALCIFEROL 1,250 MCG (50,000 IU) CAPSULE PO SCH (09:04)
[2021-11-14] MEDS: CLEVIDIPINE BUTYRATE 25 MG in EMPTY BAG 1 BAG IV SCH (09:04)
--- NOTE | 2021-11-14 09:40 | P.PN ---
Subjective Patient is seen for follow-up for end-stage renal disease. She was admitted with uncontrolled hypertension and volume overload. Overall feeling better. Getting daily dialysis/ultrafiltration for volume overload. UF about 4 L daily No complaints today Status post hemodialysis yesterday Blood pressure was on the lower side and UF goal decreased to about 2 L Objective - Vital Signs Vital signs: Vital Signs Temp 99.1 F 11/14/21 09:07 Pulse 87 11/14/21 09:07 Resp 16 11/14/21 09:11 BP 178/88 11/14/21 09:07 Pulse Ox 94 L 11/14/21 09:07 FiO2 Intake & Output 11/13/21 11/14/21 11/14/21 18:59 06:59 18:59 Intake Total 812 485 110 Output Total 2500 Balance -1688 485 110 Weight 51 kg Intake: IV 10 10 Invasive Line 4 10 10 Oral 802 485 100 Output: Hemodialysis 2500 Other: Voiding Method Toilet Toilet # Bowel Movements 1 - Exam Awake, comfortable, not in any acute distress Abdomen is soft nontender Examination lower extremity shows no significant edema SKIN SPECIALIST exam grossly intact patient is legally blind - Labs CBC & Chem 7: 11/12/21 09:33 11/14/21 06:09 Labs: Abnormal Lab Results - Last 24 Hours (Table) 11/13/21 11/13/21 11/13/21 Range/Units 11:45 16:39 20:18 Glucose (74-99) mg/dL POC Glucose (mg/dL) 161 H 229 H 125 H (70-110) mg/dL 11/14/21 11/14/21 11/14/21 Range/Units 01:58 02:02 02:50 Glucose 694 H* (74-99) mg/dL POC Glucose (mg/dL) >600 H >600 H (70-110) mg/dL 11/14/21 11/14/21 11/14/21 Range/Units 05:54 05:55 06:09 Glucose 614 H* (74-99) mg/dL POC Glucose (mg/dL) >600 H >600 H (70-110) mg/dL 11/14/21 Range/Units 08:51 Glucose (74-99) mg/dL POC Glucose (mg/dL) 186 H (70-110) mg/dL Assessment and Plan Assessment: 1. End-stage renal disease maintained on hemodialysis on a Monday schedule 2. Hypertensive emergency with volume overload, currently improved with aggressive dialysis and ultrafiltration 3. Acute on chronic diastolic CHF with moderate to severe tricuspid regurgitation and pulmonary hypertension 4. History of pericardial effusion 5. Chronic hyperkalemia associated with CK D and hyperglycemia 6. CK D mineral bone disorder 7. Hypervolemic hyponatremia also hypertonic associated with hyperglycemia Plan: Hemodialysis in a.m. Patient can be discharged postdialysis tomorrow
[2021-11-14 11:44] LABS: Glucose,Whole Blood 118 mg/dL (70-110)
--- NOTE | 2021-11-14 12:51 | P.PN ---
Subjective Progress Note Date: 11/14/21 Patient is doing well today resting comfortably in bed continues to deny chest pain or shortness of breath. Blood pressure is well-controlled. Patient tolerated dialysis well yesterday. Plan is to undergo dialysis tomorrow and discharge tomorrow afternoon Objective - Vital Signs Vital signs: Vital Signs Temp 98.1 F 11/14/21 12:43 Pulse 80 11/14/21 12:43 Resp 16 11/14/21 12:43 BP 162/88 11/14/21 12:43 Pulse Ox 98 11/14/21 12:43 FiO2 Intake & Output 11/13/21 11/14/21 11/14/21 18:59 06:59 18:59 Intake Total 812 485 240 Output Total 2500 Balance -8718 485 240 Weight 51 kg Intake: IV 10 20 Invasive Line 4 10 20 Oral 802 485 220 Output: Hemodialysis 2500 Other: Voiding Method Toilet Toilet # Bowel Movements 1 - Exam PHYSICAL EXAM: VITAL SIGNS: Reviewed. GENERAL: Well-developed in no acute distress. HEENT: Head is normocephalic. Pupils are equal, round. Sclerae anicteric. Mucous membranes of the mouth are moist. NECK: Supple. No JVD or thyromegaly RESPIRATORY: Respirations even and unlabored. Lungs diminished to auscultation bilaterally. CARDIO: Regular rate and rhythm. S1 and S2 heard. Fistula of the left upper arm EXTREMITIES: Normal range of motion. No clubbing or cyanosis. Peripheral pulses intact. Negative for bilateral lower extremity edema NEURO: Orientated to person, time, mood is appropriate - Labs CBC & Chem 7: 11/12/21 09:33 11/14/21 06:09 Labs: Abnormal Lab Results - Last 24 Hours (Table) 11/13/21 11/13/21 11/14/21 Range/Units 16:39 20:18 01:58 Glucose (74-99) mg/dL POC Glucose (mg/dL) 229 H 125 H >600 H (70-110) mg/dL 11/14/21 11/14/21 11/14/21 Range/Units 02:02 02:50 05:54 Glucose 694 H* (74-99) mg/dL POC Glucose (mg/dL) >600 H >600 H (70-110) mg/dL 11/14/21 11/14/21 11/14/21 Range/Units 05:55 06:09 08:51 Glucose 614 H* (74-99) mg/dL POC Glucose (mg/dL) >600 H 186 H (70-110) mg/dL 11/14/21 Range/Units 11:43 Glucose (74-99) mg/dL POC Glucose (mg/dL) 118 H (70-110) mg/dL Assessment and Plan Assessment: Hypertensive emergency End-stage renal disease on hemodialysis Acute on chronic heart failure with preserved ejection fraction Diabetes Plan: Continue current cardiac medications Monitor blood pressure Hemodialysis per nephrology Possible discharge in 24 hours Further recommendations based on clinical course The above impression and plan of care have been discussed and directed by the signing physician. Monique Ornelas, nurse practitioner, acting as scribe for signing physician.
[2021-11-14 16:42] LABS: Glucose,Whole Blood 126 mg/dL (70-110)
[2021-11-14] MEDS: MELATONIN 5 MG TABLET PO PRN (20:28)
[2021-11-14 20:51] LABS: Glucose,Whole Blood 224 mg/dL (70-110)
[2021-11-15 00:31] LABS: Glucose,Whole Blood 444 mg/dL (70-110)
[2021-11-15] MEDS: diphenhydrAMINE 50 MG/ML 1 ML VIAL IVP PRN ×3 (00:38→10:27)
[2021-11-15] MEDS: HYDROmorphone 1 MG/ML 1 ML SYRINGE IVP PRN ×3 (00:38→10:26)
[2021-11-15 01:53] LABS: Glucose,Whole Blood 421 mg/dL (70-110)
[2021-11-15] MEDS: CALCIUM ACETATE 667 MG TAB PO SCH ×2 (06:20→12:34)
[2021-11-15] MEDS: carvediloL 12.5 MG TAB PO SCH (06:20)
[2021-11-15] MEDS: PANTOPRAZOLE 40 MG TABLET PO SCH (06:20)
[2021-11-15 06:40] LABS: Glucose,Whole Blood 402 mg/dL (70-110)
[2021-11-15 06:49] VITALS: RESP 18
[2021-11-15] MEDS: INSULIN ASPART (NovoLOG) 100 UNIT/ML VIAL SQ SCH ×4 (06:57→12:35)
[2021-11-15] MEDS: LORazepam 1 MG TAB PO PRN (07:00)
--- NOTE | 2021-11-15 08:40 | PN ---
PROGRESS NOTE DATE OF SERVICE: 11/14/2021 CHIEF COMPLAINT: Renal failure with uncontrolled hypertension and diabetes. HISTORY OF PRESENT ILLNESS: This lady was doing fairly well and was to have been discharged Monday. She wanted to stay overnight. Then yesterday she stated that she did not have a ride home and no way to get her medications. So now, the plan is that she will go home Monday; however, during the night her blood sugar went up to over 600 and now she has a nosebleed. REVIEW OF SYSTEMS: She denies any headaches, sinus pain or pressure, chest pain, shortness of breath, etc. PHYSICAL EXAMINATION: She does have epistaxis, but it is slowing down. Chest is clear. Cardiac exam is normal. Abdomen is soft and nontender. IMPRESSION: 1. Malignant hypertension. 2. Stage 5 chronic kidney disease, on dialysis. 3. Uncontrolled brittle type 1 diabetes mellitus. 4. Blindness. 5. Epistaxis. PLAN: Hold discharge for now. She does not know how she will get home tomorrow. She states that she may have to "call a cab." MMODL / IJN: [id number] /
[2021-11-15] MEDS: CYANOCOBALAMIN 500 MCG TAB PO SCH (09:09)
[2021-11-15] MEDS: ASPIRIN 81 MG PO SCH (09:09)
[2021-11-15] MEDS: ATORVASTATIN 40 MG TAB PO SCH (09:09)
[2021-11-15] MEDS: ESCITALOPRAM 20 MG TAB PO SCH (09:09)
[2021-11-15] MEDS: INSULIN DETEMIR (LEVEMIR) 100 UNIT/ML SYR SQ SCH (09:09)
[2021-11-15 09:21] LABS: Anisocytosis Slight; Basophils # (A) 0.1 k/uL (0-0.2); Basophils % (A) 1 %; Eosinophils # (A) 0.3 k/uL (0-0.7); Eosinophils % (A) 4 %; HCT 25.4 % (34.0-46.0); HGB 8.7 gm/dL (11.4-16.0); Hypochromasia Slight; Lymphocytes # (A) 0.7 k/uL (1.0-4.8); Lymphocytes % (A) 9 %; MCH 31.9 pg (25.0-35.0); MCHC 34.4 g/dL (31.0-37.0); MCV 92.7 fL (80.0-100.0); Mean Platelet Volume 8.3; Monocytes # (A) 0.4 k/uL (0-1.0); Monocytes % (A) 6 %; Neutrophils # (A) 5.8 k/uL (1.3-7.7); Neutrophils % (A) 79 %; Platelet Count 327 k/uL (150-450); Poikilocytosis Slight; RBC 2.74 m/uL (3.80-5.40); RDW 17.3 % (11.5-15.5); WBC 7.4 k/uL (3.8-10.6)
[2021-11-15 09:36] LABS: Calcium 9.2 mg/dL (8.4-10.2)
[2021-11-15 10:06] VITALS: TEMP 98
--- NOTE | 2021-11-15 10:13 | P.PN ---
Subjective Patient is seen in follow-up for end-stage renal disease. She is maintained on hemodialysis on Monday schedule. Tolerated 2.5 L u ltrafiltration yesterday. No chest pain or shortness of breath. Blood sugar 304 this morning. Vital signs are stable. General: Awake. No acute distress. HEENT: Head exam is unremarkable. LUNGS: Breath sounds decreased. HEART: Rate and Rhythm are regular. ABDOMEN: Soft, no distention. EXTREMITITES: No edema. Objective - Vital Signs Vital signs: Vital Signs Temp 98.0 F 11/15/21 08:00 Pulse 80 11/15/21 08:00 Resp 18 11/15/21 09:15 BP 170/89 11/15/21 08:00 Pulse Ox 97 11/15/21 08:00 FiO2 Intake & Output 11/14/21 11/15/21 11/15/21 18:59 06:59 18:59 Intake Total 1020 200 462 Balance 1020 200 462 Intake: IV 30 Invasive Line 4 20 Invasive Line 5 10 Oral 990 200 462 Other: Voiding Method Toilet Toilet Toilet # Voids 0 - Labs CBC & Chem 7: 11/15/21 08:55 11/15/21 08:55 Labs: Abnormal Lab Results - Last 24 Hours (Table) 11/14/21 11/14/21 11/14/21 Range/Units 11:43 16:41 20:50 RBC (3.80-5.40) m/uL Hgb (11.4-16.0) gm/dL Hct (34.0-46.0) % RDW (11.5-15.5) % Lymphocytes # (1.0-4.8) k/uL Sodium (137-145) mmol/L Chloride (98-107) mmol/L Carbon Dioxide (22-30) mmol/L BUN (7-17) mg/dL Creatinine (0.52-1.04) mg/dL Glucose (74-99) mg/dL POC Glucose (mg/dL) 118 H 126 H 224 H (70-110) mg/dL 11/15/21 11/15/21 11/15/21 Range/Units 00:28 01:51 06:32 RBC (3.80-5.40) m/uL Hgb (11.4-16.0) gm/dL Hct (34.0-46.0) % RDW (11.5-15.5) % Lymphocytes # (1.0-4.8) k/uL Sodium (137-145) mmol/L Chloride (98-107) mmol/L Carbon Dioxide (22-30) mmol/L BUN (7-17) mg/dL Creatinine (0.52-1.04) mg/dL Glucose (74-99) mg/dL POC Glucose (mg/dL) 444 H 421 H 402 H (70-110) mg/dL 11/15/21 11/15/21 Range/Units 08:55 08:55 RBC 2.74 L (3.80-5.40) m/uL Hgb 8.7 L (11.4-16.0) gm/dL Hct 25.4 L (34.0-46.0) % RDW 17.3 H (11.5-15.5) % Lymphocytes # 0.7 L (1.0-4.8) k/uL Sodium 130 L (137-145) mmol/L Chloride 93 L (98-107) mmol/L Carbon Dioxide 20 L (22-30) mmol/L BUN 74 H (7-17) mg/dL Creatinine 7.40 H* (0.52-1.04) mg/dL Glucose 304 H (74-99) mg/dL POC Glucose (mg/dL) (70-110) mg/dL Assessment and Plan Plan: Assessment: 1. End-stage renal disease maintained on hemodialysis on Monday schedule. 2. Hypertensive emergency with volume overload. Improved. 3. Acute on chronic diastolic CHF with moderate to severe tricuspid regurgitation and pulmonary hypertension. 4. History of pericardial effusion. 5. Chronic hyperkalemia secondary to chronic kidney disease and hyperglycemia. 6. Diabetes mellitus. 7. 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 Phosphorus 4.8 dated 11/03/2021. 8. Anemia of chronic kidney disease. Iron replete. On Aranesp. 9. Hypertonic hyponatremia. 10. Volume overload. Improved with frequent ultrafiltration. Plan: Currently seen while undergoing hemodialysis. Next treatment Monday. Blood sugar control. 1500 mL fluid restriction. Maintain current antihypertensives. Avoid hydralazine and minoxidil due to pericardial effusion. Avoid CHANDA inhibitor or angiotensin receptor blockers due to chronic hyperkalemia. Patient has been strongly advised to be compliant with her home medications and dialysis treatments outpatient. Life-threatening risks of noncompliance, including , have been discussed with the patient with times. Possible discharge after dialysis today.
[2021-11-15 11:42] LABS: Glucose,Whole Blood 153 mg/dL (70-110)
[2021-11-15 12:27] VITALS: PULSE 70
[2021-11-15] MEDS: HEPARIN SODIUM,PORCINE/PF 5,000 UNIT/0.5 ML SYRINGE SQ SCH (14:19)
[2021-11-15] MEDS: cloNIDine HCL 0.1 MG TAB PO SCH (14:19)
[2021-11-15 16:23] VITALS: BP 122/66
--- NOTE | 2021-11-15 20:04 | PN ---
PROGRESS NOTE DATE OF SERVICE: 11/15/2021 CHIEF COMPLAINT: Malignant hypertension and CKD. HISTORY OF PRESENT ILLNESS: This lady seems to be doing fairly well. She is being dialyzed today and she will go home later. She is complaining of some swelling underneath the jaw on the left side. PHYSICAL EXAMINATION: There may be minimal adenopathy underneath the jaw on the left. Chest is clear. Cardiac exam is normal. The abdomen is soft and non-tender. IMPRESSION: 1. Malignant hypertension. 2. Stage 5 chronic kidney disease, on dialysis. 3. Uncontrolled type 1 insulin-dependent diabetes mellitus. 4. Blindness. 5. Lymphadenopathy on the left side of the neck. PLAN: She will be going home later today and followed up in the office. MMODL / IJN: [id number] /
== END 2021-11-15 18:50 | disposition home or self-care (01) | DRG 304 ==
LOC: EC 14:34 → 2SICU 17:33 → 5NMEDONC 10-31 14:23 → 2SICU 11-02 09:44 → 3SCARD 11-08 17:33
PROVIDERS: ADMIT Family Medicine; ATTEND Family Medicine
PROC: 5A1D70Z Performance of Urinary Filtration, Intermittent, Less than 6 Hours Per Day (ICD-10-PCS; principal; 2021-10-29)
DX: I16.1 Hypertensive emergency (principal); I50.33 Acute on chronic diastolic (congestive) heart failure; N18.6 End stage renal disease; E87.2 Acidosis; I31.3 Pericardial effusion (noninflammatory); E87.1 Hypo-osmolality and hyponatremia; E10.649 Type 1 diabetes mellitus with hypoglycemia without coma; E10.40 Type 1 diabetes mellitus with diabetic neuropathy, unspecified; E10.319 Type 1 diabetes mellitus with unspecified diabetic retinopathy without macular edema; D63.1 Anemia in chronic kidney disease; I13.2 Hypertensive heart and chronic kidney disease with heart failure and with stage 5 chronic kidney disease, or end stage renal disease; I27.20 Pulmonary hypertension, unspecified; E83.9 Disorder of mineral metabolism, unspecified; E10.22 Type 1 diabetes mellitus with diabetic chronic kidney disease; E10.65 Type 1 diabetes mellitus with hyperglycemia; Z79.4 Long term (current) use of insulin; Z99.2 Dependence on renal dialysis; Z91.15 Patient's noncompliance with renal dialysis; Z28.310 Unvaccinated for COVID-19; I07.1 Rheumatic tricuspid insufficiency; E87.5 Hyperkalemia; H54.8 Legal blindness, as defined in USA; F32.A Depression, unspecified; F41.9 Anxiety disorder, unspecified; G25.81 Restless legs syndrome; G89.29 Other chronic pain; M54.50 Low back pain, unspecified; R04.0 Epistaxis; R59.1 Generalized enlarged lymph nodes; K29.70 Gastritis, unspecified, without bleeding; T50.906A Underdosing of unspecified drugs, medicaments and biological substances, initial encounter; Z91.128 Patient's intentional underdosing of medication regimen for other reason; Z91.19 Patient's noncompliance with other medical treatment and regimen; Z79.82 Long term (current) use of aspirin; Z79.899 Other long term (current) drug therapy; Z86.16 Personal history of COVID-19; Z86.73 Personal history of transient ischemic attack (TIA), and cerebral infarction without residual deficits; Z90.49 Acquired absence of other specified parts of digestive tract; Z87.19 Personal history of other diseases of the digestive system; Z98.891 History of uterine scar from previous surgery; Z87.01 Personal history of pneumonia (recurrent); Z98.890 Other specified postprocedural states; Z88.8 Allergy status to other drugs, medicaments and biological substances; Z91.013 Allergy to seafood; Y92.009 Unspecified place in unspecified non-institutional (private) residence as the place of occurrence of the external cause; Z82.49 Family history of ischemic heart disease and other diseases of the circulatory system; Z80.8 Family history of malignant neoplasm of other organs or systems; Z82.0 Family history of epilepsy and other diseases of the nervous system; Z81.8 Family history of other mental and behavioral disorders
CPT/HCPCS: 36415; 71045; 80048; 80051; 80053; 82728; 82947; 83540; 83550; 83735; 83880; 84100; 84132; 84484; 85025; 85027; 85610; 85730; 90935; 93005; 93308; 94640; 96365; 99291

== ENCOUNTER 2021-11-21 14:58 | Inpatient (IN) | payer MEDICARE, OTHER ==
[2021-11-21] MEDS ORDERED: hydrALAZINE HCL 20 MG/ML 1 ML VIAL IVP STA ×2 (15:22→17:17)
[2021-11-21] MEDS ORDERED: diphenhydrAMINE 50 MG/ML 1 ML VIAL IVP STA (15:22)
[2021-11-21 15:33] LABS: Anisocytosis Slight; Basophils # (A) 0.1 k/uL (0-0.2); Basophils % (A) 1 %; Eosinophils # (A) 0.3 k/uL (0-0.7); Eosinophils % (A) 3 %; HCT 27.7 % (34.0-46.0); HGB 9.3 gm/dL (11.4-16.0); Lymphocytes # (A) 1.2 k/uL (1.0-4.8); Lymphocytes % (A) 13 %; MCH 30.5 pg (25.0-35.0); MCHC 33.4 g/dL (31.0-37.0); MCV 91.2 fL (80.0-100.0); Mean Platelet Volume 8.5; Monocytes # (A) 0.3 k/uL (0-1.0); Monocytes % (A) 3 %; Neutrophils # (A) 7.4 k/uL (1.3-7.7); Neutrophils % (A) 79 %; Platelet Count 369 k/uL (150-450); Poikilocytosis Slight; RBC 3.04 m/uL (3.80-5.40); WBC 9.4 k/uL (3.8-10.6)
[2021-11-21] MEDS ORDERED: ENALAPRILAT 1.25 MG/ML 1 ML VIAL IVP STA (15:46)
[2021-11-21 15:52] LABS: Albumin 4.2 g/dL (3.5-5.0); Magnesium 1.8 mg/dL (1.6-2.3); Potassium 4.4 mmol/L (3.5-5.1); Total Bilirubin 0.6 mg/dL (0.2-1.3); Total Protein 6.6 g/dL (6.3-8.2)
--- NOTE | 2021-11-21 16:04 | ED ---
General Adult HPI - General Chief complaint: Recheck/Abnormal Lab/Rx Stated complaint: Hypertension Time Seen by Provider: 11/21/21 15:08 Source: patient, RN notes reviewed Mode of arrival: ambulatory Limitations: no limitations - History of Present Illness Initial comments: This is a 30-year-old female presents emergency Department with chief complaint of headache, chest pain, hypertension. Patient's has long-standing history of uncontrolled diabetes, hypertension, renal failure on dialysis. Patient states she went on Monday for her normal dialysis appointment states that her blood pressure closely did not remove any fluid. She states her blood pressure was fine yesterday but woke up hypertensive today. She states she took an additional clonidine 0.3 mg at noon which she took a total of 0.6. Patient also took extra her nifedipine. Patient states she has pressure in her chest is slightly short of breath but denies any significant weight gain. She does admit that her blood sugar read high on her glucometer. Patient states she's been trying the last help that. Patient denies any fevers or chills no sick contacts. - Related Data Home Medications Medication Instructions Recorded Confirmed Aspirin EC [Ecotrin Low Dose] 81 mg PO DAILY 04/03/21 10/29/21 Ergocalciferol (Vitamin D2) 1,250 mcg PO COPELAND 04/03/21 10/29/21 [Drisdol (50,000 Iu)] Isosorbide Mononitrate ER [Imdur] 30 mg PO HS 04/03/21 10/29/21 carvediloL [Coreg] 25 mg PO BID 04/03/21 10/29/21 Escitalopram [Lexapro] 20 mg PO DAILY 04/17/21 10/29/21 rOPINIRole HCL [Requip] 0.5 mg PO HS 04/17/21 10/29/21 Melatonin 5 - 10 mg PO HS PRN 06/29/21 10/29/21 Insulin Glargine,Hum.rec.anlog 13 units SQ HS 09/21/21 10/29/21 [Lantus Solostar Pen] Insulin Lispro [humaLOG Kwikpen] See Protocol SQ ACHS 09/21/21 10/29/21 Previous Rx's Medication Instructions Recorded Acetaminophen Tab [Tylenol] 650 mg PO Q6HR PRN #30 tab 04/09/21 Glucagon Emergency Kit 1 mg IM ONCE PRN #1 kit 06/15/21 cloNIDine HCL [Catapres] 0.3 mg PO TID tab 08/07/21 Albuterol Inhaler [Ventolin Hfa 1 puff INHALATION RT-QID PRN 30 09/06/21 Inhaler] Days #8 gm Cyanocobalamin [Vitamin B-12] 1,000 mcg PO DAILY #60 tab 09/06/21 Atorvastatin [Lipitor] 40 mg PO DAILY 30 Days #30 tab 10/13/21 Calcium Acetate [PhosLo] 667 mg PO TID-W/MEALS 30 Days #90 10/13/21 tab NIFEdipine XL [Procardia XL] 120 mg PO DAILY 30 Days #60 tab 10/13/21 Inysmqcc-Bswxbtgskw-Reqp Oint 1 applic TOPICAL BID #1 each 10/13/21 [Triple Antibiotic Ointment] lisinopriL [Zestril] 40 mg PO DAILY 30 Days #60 tab 10/13/21 Pantoprazole Sodium [Protonix] 20 mg PO BID #30 tab 10/15/21 Darbepoetin Tate [Aranesp] 60 mcg SQ Q7D #30 each 11/12/21 Allergies Allergy/AdvReac Type Severity Reaction Status Date / Time Fish Containing Products Allergy Rash/Hives Verified 11/21/21 15:04 [Fish] iodine Allergy Anaphylaxis Verified 11/21/21 15:04 Review of Systems ROS Statement: Those systems with pertinent positive or pertinent negative responses have been documented in the HPI. ROS Other: All systems not noted in ROS Statement are negative. Past Medical History Past Medical History: CVA/TIA, Diabetes Mellitus, Dialysis, Eye Disorder, Hypertension, Renal Disease Additional Past Medical History / Comment(s): ESRD with hemodialysis M/W/F, IDDM type 1, DKA, neuropathy bilateral legs/feet, diabetic retinopathy/legally blind, RLS, gastritis, severe hypokalemia, fluid retention in abdomin/legs. History of Any Multi-Drug Resistant Organisms: None Reported Past Surgical History: Appendectomy, Section, Cholecystectomy Additional Past Surgical History / Comment(s): fistula left arm Past Anesthesia/Blood Transfusion Reactions: No Reported Reaction Past Psychological History: Anxiety, Depression Smoking Status: Never smoker Past Alcohol Use History: None Reported Past Drug Use History: None Reported - Past Family History Mother Family Medical History: Cancer, Hypertension Additional Family Medical History / Comment(s): Thyroid cancer, bipolar Father Family Medical History: Seizure Disorder Additional Family Medical History / Comment(s): Epilepsy General Exam Limitations: no limitations General appearance: alert, in no apparent distress Head exam: Present: atraumatic, normocephalic, normal inspection Eye exam: Present: PERRL, EOMI. Absent: normal appearance, scleral icterus, conjunctival injection, periorbital swelling ENT exam: Present: normal exam, normal oropharynx, mucous membranes moist Neck exam: Present: normal inspection, full ROM. Absent: tenderness, meningismus, lymphadenopathy Respiratory exam: Present: normal lung sounds bilaterally. Absent: respiratory distress, wheezes, rales, rhonchi, stridor Cardiovascular Exam: Present: regular rate, normal rhythm, normal heart sounds. Absent: systolic murmur, diastolic murmur, rubs, gallop, clicks GI/Abdominal exam: Present: soft, normal bowel sounds. Absent: distended, tenderness, guarding, rebound, rigid Neurological exam: Present: alert Course Vital Signs 11/21/21 11/21/21 11/21/21 15:01 15:47 16:15 Temperature 96.8 F L Pulse Rate 84 82 89 Respiratory 20 18 16 Rate Blood Pressure 240/107 233/127 237/117 O2 Sat by Pulse 100 Oximetry 11/21/21 16:35 Temperature Pulse Rate 88 Respiratory 18 Rate Blood Pressure 237/122 O2 Sat by Pulse Oximetry Medical Decision Making - Medical Decision Making 30-year-old female presented from for hypertension chest pain or headache. Patient does have mild pulmonary congestion noted, patient has hypertension emergency. I did discuss case with Dr. Buckner, nephrology Dr. Amaro. Patient will be dialyzed tomorrow. Patient was given multiple medications including she took extra doses of her home medications prior arrival, hydralazine, Vasotec. Patient will be admitted for blood pressure control she has no overt signs of failure she is in no respiratory distress. - Lab Data Result diagrams: 11/21/21 15:24 11/21/21 15:24 Lab Results 11/21/21 11/21/21 11/21/21 Range/Units 15:24 15:24 15:24 WBC 9.4 (3.8-10.6) k/uL RBC 3.04 L (3.80-5.40) m/uL Hgb 9.3 L (11.4-16.0) gm/dL Hct 27.7 L (34.0-46.0) % MCV 91.2 (80.0-100.0) fL MCH 30.5 (25.0-35.0) pg MCHC 33.4 (31.0-37.0) g/dL RDW 18.0 H (11.5-15.5) % Plt Count 369 (150-450) k/uL MPV 8.5 Neutrophils % 79 % Lymphocytes % 13 % Monocytes % 3 % Eosinophils % 3 % Basophils % 1 % Neutrophils # 7.4 (1.3-7.7) k/uL Lymphocytes # 1.2 (1.0-4.8) k/uL Monocytes # 0.3 (0-1.0) k/uL Eosinophils # 0.3 (0-0.7) k/uL Basophils # 0.1 (0-0.2) k/uL Poikilocytosis Slight Anisocytosis Slight PT 10.7 (9.0-12.0) sec INR 1.0 (<1.2) APTT 23.6 (22.0-30.0) sec Sodium 131 L (137-145) mmol/L Potassium 4.4 (3.5-5.1) mmol/L Chloride 91 L (98-107) mmol/L Carbon Dioxide 27 (22-30) mmol/L Anion Gap 13 mmol/L BUN 41 H (7-17) mg/dL Creatinine 7.28 H* (0.52-1.04) mg/dL Est GFR (CKD-EPI)AfAm 8 (>60 ml/min/1.73 sqM) Est GFR (CKD-EPI)NonAf 7 (>60 ml/min/1.73 sqM) Glucose 225 H (74-99) mg/dL Calcium 9.0 (8.4-10.2) mg/dL Magnesium 1.8 (1.6-2.3) mg/dL Total Bilirubin 0.6 (0.2-1.3) mg/dL AST 31 (14-36) U/L ALT 25 (4-34) U/L Alkaline Phosphatase 243 H (38-126) U/L Troponin I (0.000-0.034) ng/mL Total Protein 6.6 (6.3-8.2) g/dL Albumin 4.2 (3.5-5.0) g/dL 11/21/21 Range/Units 15:24 WBC (3.8-10.6) k/uL RBC (3.80-5.40) m/uL Hgb (11.4-16.0) gm/dL Hct (34.0-46.0) % MCV (80.0-100.0) fL MCH (25.0-35.0) pg MCHC (31.0-37.0) g/dL RDW (11.5-15.5) % Plt Count (150-450) k/uL MPV Neutrophils % % Lymphocytes % % Monocytes % % Eosinophils % % Basophils % % Neutrophils # (1.3-7.7) k/uL Lymphocytes # (1.0-4.8) k/uL Monocytes # (0-1.0) k/uL Eosinophils # (0-0.7) k/uL Basophils # (0-0.2) k/uL Poikilocytosis Anisocytosis PT (9.0-12.0) sec INR (<1.2) APTT (22.0-30.0) sec Sodium (137-145) mmol/L Potassium (3.5-5.1) mmol/L Chloride (98-107) mmol/L Carbon Dioxide (22-30) mmol/L Anion Gap mmol/L BUN (7-17) mg/dL Creatinine (0.52-1.04) mg/dL Est GFR (CKD-EPI)AfAm (>60 ml/min/1.73 sqM) Est GFR (CKD-EPI)NonAf (>60 ml/min/1.73 sqM) Glucose (74-99) mg/dL Calcium (8.4-10.2) mg/dL Magnesium (1.6-2.3) mg/dL Total Bilirubin (0.2-1.3) mg/dL AST (14-36) U/L ALT (4-34) U/L Alkaline Phosphatase (38-126) U/L Troponin I 0.056 H* (0.000-0.034) ng/mL Total Protein (6.3-8.2) g/dL Albumin (3.5-5.0) g/dL Disposition Clinical Impression: ESRD (end stage renal disease) on dialysis, Hypertensive emergency Disposition: ADMITTED IP TO THIS HOSP Condition: Poor Referrals: Roque Buckner MD [Primary Care Provider] - 1-2 days Time of Disposition: 17:10
--- NOTE | 2021-11-21 16:05 | XR ---
EXAMINATION TYPE: XR chest 2V DATE OF EXAM: 11/21/2021 COMPARISON: 10/29/2021 HISTORY: Chest pain TECHNIQUE: FINDINGS: Heart is enlarged. There some mild pulmonary interstitial edema. There are chest leads. Not e significant pleural fluid. Bony thorax is intact. IMPRESSION: There is probably some mild acute heart failure. Pulmonary congestion increased compared to old exam.
[2021-11-21 16:10] LABS: Partial Thromboplastin Time 23.6 sec (22.0-30.0); Prothrombin Time 10.7 sec (9.0-12.0)
[2021-11-21] MEDS ORDERED: MORPHINE SULFATE 4 MG/ML SYRINGE IVP STA (17:17)
[2021-11-21] MEDS ORDERED: HYDROmorphone 1 MG/ML 1 ML SYRINGE IVP STA (17:17)
[2021-11-21] MEDS ORDERED: ONDANSETRON 4 MG/2 ML VIAL IVP PRN (17:33)
[2021-11-21] MEDS ORDERED: NALOXONE 0.4 MG/ML 1 ML VIAL IV PRN (17:33)
[2021-11-21] MEDS ORDERED: hydrALAZINE HCL 20 MG/ML 1 ML VIAL IVP PRN (17:35)
[2021-11-21] MEDS ORDERED: cloNIDine HCL 0.1 MG TAB PO STA (17:49)
[2021-11-21] MEDS: MORPHINE SULFATE 4 MG/ML SYRINGE IV PRN ×2 (19:36→23:26)
[2021-11-21 20:28] LABS: Glucose,Whole Blood 314 mg/dL (70-110)
[2021-11-21] MEDS: cloNIDine HCL 0.1 MG TAB PO SCH (20:43)
[2021-11-21] MEDS: carvediloL 12.5 MG TAB PO SCH (20:44)
[2021-11-21] MEDS: INSULIN ASPART (NovoLOG) 100 UNIT/ML VIAL SQ SCH (20:45)
[2021-11-21] MEDS ORDERED: INSULIN DETEMIR (LEVEMIR) 100 UNIT/ML SYR SQ SCH (21:00)
[2021-11-21] MEDS ORDERED: NON FORMULARY DRUG (Insulin Lispro [Humalog Kwikpen] 100 UNIT/ML Insuln.Pen) SQ SCH (21:00)
[2021-11-22 02:10] LABS: Glucose,Whole Blood 63 mg/dL (70-110)
[2021-11-22 02:25] LABS: Glucose,Whole Blood 54 mg/dL (70-110)
[2021-11-22] MEDS ORDERED: DEXTROSE 50% SYRINGE 50 ML IVP ONE ×2 (02:26→12:21)
[2021-11-22] MEDS: DEXTROSE 50% SYRINGE 50 ML IVP STA ×2 (02:27→05:16)
[2021-11-22 02:41] LABS: Glucose,Whole Blood 140 mg/dL (70-110)
[2021-11-22] MEDS: MORPHINE SULFATE 4 MG/ML SYRINGE IV PRN ×4 (05:02→20:39)
[2021-11-22 05:16] LABS: Glucose,Whole Blood 43 mg/dL (70-110)
[2021-11-22] MEDS: INSULIN ASPART (NovoLOG) 100 UNIT/ML VIAL SQ SCH ×4 (05:26→20:46)
[2021-11-22 05:31] LABS: Glucose,Whole Blood 206 mg/dL (70-110)
[2021-11-22] MEDS: carvediloL 12.5 MG TAB PO SCH ×2 (06:16→17:12)
--- NOTE | 2021-11-22 09:15 | P.NPCON ---
History of Present Illness - Reason for Consult end stage renal disease - History of Present Illness Patient is a 30-year-old female with end-stage renal disease on hemodialysis on a Monday schedule. Patient is admitted to the hospital with the extremely high blood pressures. Patient's blood pressure was 240/107 when she came into the ER. Patient states that her blood pressure was low on Monday and Monday so she did not have much fluid removed with hemodialysis. No significant change in medication dosage Blood sugars have been running on the higher side No history of fever chills nausea vomiting or abdominal pain Review of Systems As per HPI Past Medical History Past Medical History: CVA/TIA, Diabetes Mellitus, Dialysis, Eye Disorder, Hypertension, Renal Disease Additional Past Medical History / Comment(s): ESRD with hemodialysis M/W/F, IDDM type 1, DKA, neuropathy bilateral legs/feet, diabetic retinopathy/legally blind, RLS, gastritis, severe hypokalemia, fluid retention in abdomin/legs. History of Any Multi-Drug Resistant Organisms: None Reported Past Surgical History: Appendectomy, Section, Cholecystectomy Additional Past Surgical History / Comment(s): fistula left arm Past Anesthesia/Blood Transfusion Reactions: No Reported Reaction Past Psychological History: Anxiety, Depression Additional Psychological History / Comment(s): Pt resides with her father and pt's 3 children. Pt gets to dialysis by grandparents/family or cab. Smoking Status: Never smoker Past Alcohol Use History: None Reported Past Drug Use History: None Reported - Past Family History Mother Family Medical History: Cancer, Hypertension Additional Family Medical History / Comment(s): Thyroid cancer, bipolar Father Family Medical History: Seizure Disorder Additional Family Medical History / Comment(s): Epilepsy Medications and Allergies Home Medications Medication Instructions Recorded Confirmed Type Aspirin EC [Ecotrin Low Dose] 81 mg PO DAILY 04/03/21 11/21/21 History Ergocalciferol (Vitamin D2) 1,250 mcg PO COPELAND 04/03/21 11/21/21 History [Drisdol (50,000 Iu)] Isosorbide Mononitrate ER [Imdur] 30 mg PO HS 04/03/21 11/21/21 History carvediloL [Coreg] 25 mg PO BID 04/03/21 11/21/21 History Acetaminophen Tab [Tylenol] 650 mg PO Q6HR PRN #30 tab 04/09/21 11/21/21 Rx Escitalopram [Lexapro] 20 mg PO DAILY 04/17/21 11/21/21 History rOPINIRole HCL [Requip] 0.5 mg PO HS 04/17/21 11/21/21 History Glucagon Emergency Kit 1 mg IM ONCE PRN #1 kit 06/15/21 11/21/21 Rx Melatonin 5 - 10 mg PO HS PRN 06/29/21 11/21/21 History Albuterol Inhaler [Ventolin Hfa 1 puff INHALATION RT-QID PRN 30 09/06/21 11/21/21 Rx Inhaler] Days #8 gm Cyanocobalamin [Vitamin B-12] 1,000 mcg PO DAILY #60 tab 09/06/21 11/21/21 Rx Insulin Glargine,Hum.rec.anlog 13 units SQ HS 09/21/21 11/21/21 History [Lantus Solostar Pen] Insulin Lispro [humaLOG Kwikpen] See Protocol SQ ACHS 09/21/21 11/21/21 History Atorvastatin [Lipitor] 40 mg PO DAILY 30 Days #30 tab 10/13/21 11/21/21 Rx Calcium Acetate [PhosLo] 667 mg PO TID-W/MEALS 30 Days #90 10/13/21 11/21/21 Rx tab NIFEdipine XL [Procardia XL] 120 mg PO DAILY 30 Days #60 tab 10/13/21 11/21/21 Rx Enhkagdz-Gjigzkmwqy-Wftx Oint 1 applic TOPICAL BID #1 each 10/13/21 11/21/21 Rx [Triple Antibiotic Ointment] Pantoprazole Sodium [Protonix] 20 mg PO BID #30 tab 10/15/21 11/21/21 Rx Darbepoetin Tate [Aranesp] 60 mcg SQ Q7D #30 each 11/12/21 11/21/21 Rx cloNIDine HCL [Catapres] 0.3 mg PO TID 11/21/21 11/21/21 History lisinopriL 40 mg PO DAILY 11/21/21 11/21/21 History Allergies Allergy/AdvReac Type Severity Reaction Status Date / Time Fish Containing Products Allergy Rash/Hives Verified 11/21/21 17:35 [Fish] iodine Allergy Anaphylaxis Verified 11/21/21 17:35 Physical Exam Vitals: Vital Signs Temp Pulse Pulse Resp BP BP Pulse Ox 11/22/21 08:32 98.0 F 72 18 144/82 98 11/22/21 03:32 98.1 F 74 16 117/63 91 L 11/22/21 02:00 86 18 11/22/21 00:51 153/77 11/21/21 23:47 98.7 F 86 18 195/93 96 11/21/21 20:00 99.1 F 89 20 189/91 98 11/21/21 19:00 92 16 209/116 96 11/21/21 17:31 89 18 235/127 97 11/21/21 16:35 88 18 237/122 11/21/21 16:15 89 16 237/117 11/21/21 15:47 82 18 233/127 11/21/21 15:01 96.8 F L 84 20 240/107 100 Intake and Output 11/21/21 11/22/21 11/22/21 22:59 06:59 14:59 Intake Total 240 180 Balance 240 180 Intake: Oral 240 180 Other: Voiding Method Toilet Toilet Weight 45.359 kg 52.7 kg Awake, comfortable, not in any acute distress Alert oriented 3 Examination of the heart S1 and S2 Examination lungs bilateral breath sounds are heard Abdomen is soft nontender Examination lower extremity shows no significant edema MECHANIC DRIVER exam 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 End-stage renal disease on hemodialysis on a Monday schedule 2. Hypertensive emergency, improved, partly volume sensitive, scheduled for hemodialysis today. Blood pressure had been low on Monday and Monday and patient did not have any significant ultrafiltration with hemodialysis. 3. Fluid overload 4. CK D mineral bone disorder 5. Brittle diabetes Plan: Hemodialysis today with ultrafiltration of 4 L. Resume home medications Benadryl IV with treatment next Possible discharge post dialysis today.
[2021-11-22] MEDS ORDERED: ALBUTEROL NEBULIZED 2.5 MG/3 ML INHALATION PRN (10:52)
[2021-11-22] MEDS ORDERED: ACETAMINOPHEN TAB 325 MG TAB PO PRN (10:52)
[2021-11-22 11:44] LABS: Glucose,Whole Blood 66 mg/dL (70-110)
[2021-11-22 12:02] LABS: Glucose,Whole Blood 69 mg/dL (70-110)
[2021-11-22] MEDS: CALCIUM ACETATE 667 MG TAB PO SCH ×2 (12:02→17:06)
[2021-11-22] MEDS: lisinopriL 20 MG TAB PO SCH (12:02)
[2021-11-22] MEDS: cloNIDine HCL 0.1 MG TAB PO SCH ×3 (12:02→20:36)
[2021-11-22 12:20] LABS: Glucose,Whole Blood 68 mg/dL (70-110)
[2021-11-22] MEDS: diphenhydrAMINE 50 MG/ML 1 ML VIAL IVP PRN ×2 (12:36→20:37)
[2021-11-22 12:37] LABS: Glucose,Whole Blood 194 mg/dL (70-110)
[2021-11-22] MEDS: ESCITALOPRAM 20 MG TAB PO SCH (12:46)
[2021-11-22] MEDS ORDERED: LORazepam 1 MG TAB PO PRN (15:28)
[2021-11-22] MEDS ORDERED: cloNIDine HCL 0.1 MG TAB PO SCH (16:00)
[2021-11-22 16:39] LABS: Glucose,Whole Blood 395 mg/dL (70-110)
[2021-11-22] MEDS: PANTOPRAZOLE 40 MG TABLET PO SCH (17:12)
--- NOTE | 2021-11-22 18:51 | HP ---
HISTORY AND PHYSICAL CHIEF COMPLAINT: Renal failure and hypertension. HISTORY OF PRESENT ILLNESS: This lady is back in the emergency room after being discharged about a week ago. She started to have headache and came to the emergency room, where blood pressure was 237/122. She was dialyzed Monday, but they did not take any fluid off, apparently. REVIEW OF SYSTEMS: She has denies any neurologic problems, chest pain, abdominal pain, nausea, vomiting, etc. Past medical history, family history, and personal and social histories are all unchanged from her recent admitting and discharge summaries. PHYSICAL EXAMINATION: Blood pressure is 237/122 with a pulse of 89, respirations of 35, and she is afebrile. In general she appeared to be pale, chronically ill. She was awake and alert. She had no complaints. Head, ears, eyes, nose, mouth and throat were unremarkable. She is blind. Neck veins were not distended. Chest was clear. Cardiac exam demonstrated sinus tachycardia. The abdomen was soft and nontender without visceromegaly or masses. Bowel sounds were present. Extremities were normal. IMPRESSION: 1. Hypertensive emergency. 2. Uncontrolled hypertension. 3. Stage 5 chronic kidney disease, on dialysis. 4. Uncontrolled brittle type 1 insulin-dependent diabetes mellitus. 5. Diabetic retinopathy with total blindness. PLAN: 1. Dialysis. 2. Try once again to control hypertension and blood sugars. MMODL / IJN: [id number] /
--- NOTE | 2021-11-22 18:58 | PN ---
PROGRESS NOTE DATE OF SERVICE: 11/22/2021 CHIEF COMPLAINT: Hypertensive urgency and renal failure. HISTORY OF PRESENT ILLNESS: This lady's blood sugars are trending down. She is being dialysis dialyzed at the present time. She denies headaches, chest pain, shortness of breath, abdominal pain, nausea, etc. PHYSICAL EXAMINATION: Her chest is clear. Cardiac exam is normal and unchanged. The abdomen is soft. IMPRESSION: 1. Hypertensive urgency. 2. Chest pain. 3. Stage 5 chronic kidney disease. 4. Uncontrolled type 1 diabetes mellitus. 5. Retinopathy. PLAN: Continue with dialysis and readjust medications to control hypertension and diabetes, and then probably home in the next day or two. MMODL / IJN: [id number] /
[2021-11-22 20:09] LABS: Glucose,Whole Blood 317 mg/dL (70-110)
[2021-11-22] MEDS: ISOSORBIDE MONONITRATE ER 30 MG TAB.ER.24H PO SCH (20:36)
[2021-11-22] MEDS: INSULIN DETEMIR (LEVEMIR) 100 UNIT/ML SYR SQ SCH (20:38)
[2021-11-23 02:08] LABS: Glucose,Whole Blood 67 mg/dL (70-110)
[2021-11-23 02:22] LABS: Glucose,Whole Blood 61 mg/dL (70-110)
[2021-11-23] MEDS ORDERED: DEXTROSE 50% SYRINGE 50 ML IVP ONE (02:24)
[2021-11-23] MEDS: MORPHINE SULFATE 4 MG/ML SYRINGE IV PRN ×3 (02:28→11:36)
[2021-11-23 02:37] LABS: Glucose,Whole Blood 266 mg/dL (70-110)
[2021-11-23 06:03] LABS: Glucose,Whole Blood 105 mg/dL (70-110)
[2021-11-23] MEDS: CALCIUM ACETATE 667 MG TAB PO SCH ×3 (06:23→17:04)
[2021-11-23] MEDS: carvediloL 12.5 MG TAB PO SCH ×2 (06:23→17:04)
[2021-11-23] MEDS: PANTOPRAZOLE 40 MG TABLET PO SCH ×2 (06:24→17:05)
[2021-11-23] MEDS: INSULIN ASPART (NovoLOG) 100 UNIT/ML VIAL SQ SCH ×4 (06:25→20:25)
[2021-11-23] MEDS ORDERED: lisinopriL 20 MG TAB PO SCH (09:00)
[2021-11-23] MEDS ORDERED: ESCITALOPRAM 20 MG TAB PO SCH (09:00)
[2021-11-23] MEDS: diphenhydrAMINE 50 MG/ML 1 ML VIAL IVP PRN (09:48)
[2021-11-23] MEDS: CYANOCOBALAMIN 500 MCG TAB PO SCH (09:48)
[2021-11-23] MEDS: cloNIDine HCL 0.1 MG TAB PO SCH ×3 (09:48→19:57)
[2021-11-23] MEDS: ASPIRIN 81 MG PO SCH (09:48)
[2021-11-23] MEDS: lisinopriL 20 MG TAB PO SCH (09:48)
[2021-11-23] MEDS: ATORVASTATIN 40 MG TAB PO SCH (09:48)
[2021-11-23] MEDS: ESCITALOPRAM 20 MG TAB PO SCH (09:49)
--- NOTE | 2021-11-23 11:20 | P.PN ---
Subjective Patient is seen for follow-up for end-stage renal disease. She was admitted to the hospital with shortness of breath and uncontrolled hypertension associated with volume overload. This has improved with hemodialysis. Patient had 3.8 L of UF yesterday. She is being dialyzed again today. No significant complaints No episodes of hypotension. Objective - Vital Signs Vital signs: Vital Signs Temp 98.0 F 11/23/21 09:47 Pulse 73 11/23/21 09:47 Resp 18 11/23/21 09:47 BP 144/78 11/23/21 09:47 Pulse Ox 97 11/23/21 09:47 FiO2 Intake & Output 11/22/21 11/23/21 11/23/21 18:59 06:59 18:59 Intake Total 1380 658 Output Total 3800 Balance -2420 658 Weight 51.6 kg Intake: Oral 1080 658 Hemodialysis 300 Output: Hemodialysis 3800 Other: Voiding Method Toilet Toilet Toilet # Voids 0 0 - Exam Awake, comfortable, not in any acute distress. Alert oriented 3 Examination of the heart S1 and S2 Examination lungs bilateral breath sounds are heard Abdomen is soft nontender Exertion lower extremities shows no evidence of edema ASSESSOR exam grossly intact Patient is legally blind - Labs CBC & Chem 7: 11/21/21 15:24 11/21/21 15:24 Labs: Abnormal Lab Results - Last 24 Hours (Table) 11/22/21 11/22/21 11/22/21 Range/Units 11:42 12:00 12:19 POC Glucose (mg/dL) 66 L 69 L 68 L (70-110) mg/dL 11/22/21 11/22/21 11/22/21 Range/Units 12:36 16:37 20:08 POC Glucose (mg/dL) 194 H 395 H 317 H (70-110) mg/dL 11/23/21 11/23/21 11/23/21 Range/Units 02:06 02:20 02:35 POC Glucose (mg/dL) 67 L 61 L 266 H (70-110) mg/dL Assessment and Plan Assessment: 1. End-stage renal disease on hemodialysis on a Monday schedule 2. Hypertensive emergency, improved, partly volume sensitive, status post hem odialysis 11/22/2021 and being dialyzed again today Blood pressure had been low on Monday and Monday and patient did not have any significant ultrafiltration with hemodialysis. 3. Fluid overload 4. CK D mineral bone disorder 5. Brittle diabetes Plan: Repeat hemodialysis today UF about 4 L as tolerated
[2021-11-23 11:44] LABS: Glucose,Whole Blood 113 mg/dL (70-110)
--- NOTE | 2021-11-23 13:14 | PN ---
PROGRESS NOTE DATE OF SERVICE: 11/23/2021 CHIEF COMPLAINT: Uncontrolled hypertension and renal failure. HISTORY OF PRESENT ILLNESS: This lady is doing well. She was dialyzed yesterday. We will assess her blood pressure and blood sugars and see if we can discharge her back home. She is asking for Benadryl for itching. She has a sore on her back. PHYSICAL EXAM: Chest clear. Cardiac exam demonstrates a grade 2 or 3 cyst systolic murmur which has not been heard before. She has a small decubitus area or ulcer in the mid back area. IMPRESSION: 1. Hypertensive urgency. 2. Renal failure. 3. Uncontrolled diabetes. 4. Diabetic retinopathy with blindness. 5. Cardiac murmur. 6. Small decubitus in the middle of the back. PLAN: 1. Benadryl q.i.d. p.r.n. 2. Possibly discharge soon. MMODL / IJN: [id number] /
[2021-11-23 16:52] LABS: Glucose,Whole Blood 347 mg/dL (70-110)
[2021-11-23] MEDS: ISOSORBIDE MONONITRATE ER 30 MG TAB.ER.24H PO SCH (19:57)
[2021-11-23 20:04] LABS: Glucose,Whole Blood 348 mg/dL (70-110)
[2021-11-23] MEDS: INSULIN DETEMIR (LEVEMIR) 100 UNIT/ML SYR SQ SCH (20:25)
[2021-11-24 01:58] LABS: Glucose,Whole Blood 163 mg/dL (70-110)
[2021-11-24] MEDS: INSULIN ASPART (NovoLOG) 100 UNIT/ML VIAL SQ SCH ×4 (05:58→20:11)
[2021-11-24 05:59] LABS: Glucose,Whole Blood 98 mg/dL (70-110)
[2021-11-24] MEDS: CALCIUM ACETATE 667 MG TAB PO SCH ×3 (06:18→17:55)
[2021-11-24] MEDS: carvediloL 12.5 MG TAB PO SCH ×2 (06:18→17:55)
[2021-11-24] MEDS: PANTOPRAZOLE 40 MG TABLET PO SCH ×2 (06:18→17:55)
[2021-11-24] MEDS: cloNIDine HCL 0.1 MG TAB PO SCH ×3 (08:54→21:50)
[2021-11-24] MEDS: CYANOCOBALAMIN 500 MCG TAB PO SCH (08:58)
[2021-11-24] MEDS: ESCITALOPRAM 20 MG TAB PO SCH (08:58)
[2021-11-24] MEDS: ASPIRIN 81 MG PO SCH (08:58)
[2021-11-24] MEDS: ATORVASTATIN 40 MG TAB PO SCH (08:59)
[2021-11-24] MEDS ORDERED: DARBEPOETIN ALFA 60 MCG/0.3 ML SYRINGE SQ SCH (09:00)
[2021-11-24] MEDS: lisinopriL 20 MG TAB PO SCH (09:09)
[2021-11-24] MEDS ORDERED: diphenhydrAMINE 50 MG/ML 1 ML VIAL IVP PRN (09:30)
[2021-11-24 09:45] LABS: Anisocytosis Slight; HCT 28.4 % (34.0-46.0); HGB 9.1 gm/dL (11.4-16.0); Hypochromasia Moderate; MCH 30.5 pg (25.0-35.0); MCHC 31.9 g/dL (31.0-37.0); MCV 95.5 fL (80.0-100.0); Macrocytosis Slight; Mean Platelet Volume 9.6; Platelet Count 327 k/uL (150-450); Poikilocytosis Slight; RBC 2.97 m/uL (3.80-5.40); RDW 18.8 % (11.5-15.5); WBC 9.7 k/uL (3.8-10.6)
[2021-11-24 09:53] LABS: Albumin 3.6 g/dL (3.5-5.0); Calcium 8.5 mg/dL (8.4-10.2); Magnesium 2.1 mg/dL (1.6-2.3); Potassium 5.5 mmol/L (3.5-5.1); Total Bilirubin 0.4 mg/dL (0.2-1.3)
--- NOTE | 2021-11-24 11:18 | CDI ---
Documentation Clarification Form Date: 11/24/2021 11:00:48 AM From: Tamica Hale CCS, CCDS Admit Date: 11/21/2021 05:46:00 PM Patient Name: Patsy Pizano Visit Number: [id number] Discharge Date: ATTENTION: The Clinical Documentation Specialists (CDI) and [facility] Coding Staff appreciate your assistance in clarifying documentation. Please respond to the clarification below the line at the bottom and electronically sign. The CDI & [facility] Coding staff will review the response and follow-up if needed. Please note: Queries are made part of the Legal Health Record. If you have any questions, please contact the author of this message via ITS. Dr. Roque Buckner: Small Decubitus in the middle of the back is documented in the Attending Physician Progress Note on 11/23 without further specificity. Per the 11/24 Nursing Integumentary Assessment: Scattered scabs & scratches. Based on this information and the findings below, is there an additional diagnosis that is clinically appropriate for this patient? History/Risk Factors per the 11/22 H/P: CKD stage V on Hemodialysis, Uncontrolled Brittle Type 1 IDDM, Diabetic Retinopathy with Total Blindness. Clinical Indicators: Presented to the 11/21 ED Note with Headache, Chest Pain, Hypertension, long history of Uncontrolled Diabetes, Renal Failure on Dialysis. Woke up with Hypertension today, complained of chest pressure and SOB, Blood sugar high at home. Admit with ESRD on Dialysis, Hypertensive Emergency 11/21 VS: T 96.8, P 84, R 20, BP 240/107, PO 100 RA, BMI: 19.5 11/21 LAB: RBC 3.04, Hgb 9.3, Hct 27.7; Na 131, Chl 91, BUN 41, Creatinine 7.28, Glucose 225, Alk Phos 243, Troponin 0.056 Treatment 11/21: Blood Glucose monitoring, Hypoglycemia Protocol, Insulin sliding scale, Nephrology consulted, O2 2Lnc, IV Benadryl 50 mg x1, IV Droperidol 1.5 mg x1, IV Apresoline 20 mg x3, IV Vasotec 2.5 mg x1, IV Dilaudid 1 mg x1, IV Morphine 4 mg x1, IV Morphine 4 mg q4H/prn, IV Zofran 4 mg q8H/prn, Is there an additional diagnosis that is clinically appropriate for this patient? [ ] Decubitus Ulcer Middle of the Back specified as Pressure Ulcer Stage 1 [ ] Decubitus Ulcer Middle of the Back specified as other Stage, please specify: [ ] Decubitus Ulcer Middle of the Back specified as Pressure Ulcer unstageable [ ] Decubitus Ulcer/Pressure Ulcer Middle of the Back rule out [ ] Other condition, please specify: [ ] Unable to determine Clinical Definitions: Stage 1 Pressure Ulcer: intact skin, non-blanching redness of local area Stage 2 Pressure Ulcer: Partial thickness, loss of dermis, pink wound bed (Template Last Revised: July 2020) MTDD
[2021-11-24 12:01] LABS: Glucose,Whole Blood 157 mg/dL (70-110)
--- NOTE | 2021-11-24 13:06 | P.PN ---
Subjective Patient is seen for follow-up for end-stage renal disease. She was admitted to the hospital with shortness of breath and uncontrolled hypertension associated with volume overload. This has improved with hemodialysis. Patient had 3.8 L of UF yesterday. She is being dialyzed again today. No significant complaints No episodes of hypotension. Possible discharge today. Objective - Vital Signs Vital signs: Vital Signs Temp 98.2 F 11/24/21 11:43 Pulse 85 11/24/21 11:43 Resp 16 11/24/21 11:43 BP 112/65 11/24/21 12:14 Pulse Ox 94 L 11/24/21 11:43 FiO2 Intake & Output 11/23/21 11/24/21 11/24/21 18:59 06:59 18:59 Intake Total 1780 485 840 Output Total 2500 3000 Balance -720 485 -2160 Intake: Oral 1480 485 840 Hemodialysis 300 Output: Urine 0 Hemodialysis 2500 3000 Other: Voiding Method Toilet Toilet # Voids 0 0 - Exam Awake, comfortable, not in any acute distress. Alert oriented 3 Examination of the heart S1 and S2 Examination lungs bilateral breath sounds are heard Abdomen is soft nontender Examination of lower extremities shows no evidence of edema [employer] exam grossly intact Patient is legally blind - Labs CBC & Chem 7: 11/24/21 09:37 11/24/21 09:37 Labs: Abnormal Lab Results - Last 24 Hours (Table) 11/23/21 11/23/21 11/24/21 Range/Units 16:51 20:03 01:56 RBC (3.80-5.40) m/uL Hgb (11.4-16.0) gm/dL Hct (34.0-46.0) % RDW (11.5-15.5) % Sodium (137-145) mmol/L Potassium (3.5-5.1) mmol/L BUN (7-17) mg/dL Creatinine (0.52-1.04) mg/dL Glucose (74-99) mg/dL POC Glucose (mg/dL) 347 H 348 H 163 H (70-110) mg/dL AST (14-36) U/L ALT (4-34) U/L Alkaline Phosphatase (38-126) U/L Total Protein (6.3-8.2) g/dL 11/24/21 11/24/2122 Range/Units 09:37 09:37 11:58 RBC 2.97 L (3.80-5.40) m/uL Hgb 9.1 L (11.4-16.0) gm/dL Hct 28.4 L (34.0-46.0) % RDW 18.8 H (11.5-15.5) % Sodium 133 L (137-145) mmol/L Potassium 5.5 H (3.5-5.1) mmol/L BUN 43 H (7-17) mg/dL Creatinine 6.59 H (0.52-1.04) mg/dL Glucose 152 H (74-99) mg/dL POC Glucose (mg/dL) 157 H (70-110) mg/dL AST 49 H (14-36) U/L ALT 61 H (4-34) U/L Alkaline Phosphatase 294 H (38-126) U/L Total Protein 6.0 L (6.3-8.2) g/dL Assessment and Plan Assessment: 1. End-stage renal disease on hemodialysis on a Monday schedule 2. Hypertensive emergency, improved, partly volume sensitive, status post hemodialysis 11/22/2021 and being dialyzed again today Blood pressure had been low on Monday and Monday and patient did not have any significant ult rafiltration with hemodialysis. 3. Fluid overload 4. CK D mineral bone disorder 5. Brittle diabetes Plan: Repeat hemodialysis today UF about 4 L as tolerated Stable for discharge from nephrology standpoint.
[2021-11-24 16:37] LABS: Glucose,Whole Blood >600 mg/dL (70-110)
[2021-11-24 16:37] LABS: Glucose,Whole Blood >600 mg/dL (70-110)
[2021-11-24] MEDS ORDERED: INSULIN ASPART (NovoLOG) 100 UNIT/ML VIAL SQ ONE (17:21)
[2021-11-24] MEDS: INSULIN DETEMIR (LEVEMIR) 100 UNIT/ML SYR SQ SCH (18:33)
[2021-11-24] MEDS ORDERED: INSULIN DETEMIR (LEVEMIR) 100 UNIT/ML SYR SQ ONE (19:19)
[2021-11-24 20:03] LABS: Glucose,Whole Blood >600 mg/dL (70-110)
[2021-11-24 20:03] LABS: Glucose,Whole Blood >600 mg/dL (70-110)
[2021-11-24] MEDS: ISOSORBIDE MONONITRATE ER 30 MG TAB.ER.24H PO SCH (20:11)
--- NOTE | 2021-11-24 20:49 | PN ---
PROGRESS NOTE CHIEF COMPLAINT: Hypertensive emergency, renal failure, diabetes. HISTORY OF PRESENT ILLNESS: This lady did not go home last night for some reason. This is typical behavior for her. She is being dialyzed again today and can go. Blood sugar was up again today, but frequently is and she will be given short-acting insulin and then she can be discharged. PHYSICAL EXAMINATION: Chest is clear. Cardiac exam is normal. Abdomen is soft, nontender. IMPRESSION: Hypertensive emergency, renal failure, uncontrolled diabetes. PLAN: Home later today. MMODL / IJN: [id number] /
--- NOTE | 2021-11-24 21:04 | MISC ---
MISCELLANOUS REPORT QUERY: Decubitus ulcer of the back, stage II. MMAUGUSTOL / IJN: [id number] /
--- NOTE | 2021-11-24 21:19 | DS ---
DISCHARGE SUMMARY CHIEF COMPLAINT: Hypertensive emergency and renal failure. HISTORY OF PRESENT ILLNESS AND PHYSICAL EXAMINATION: Details of this lady's history and physical can be found in the initial workup. LABORATORY DATA: While she was in the hospital, she had laboratory studies, details of which can be found in the laboratory section of her chart. COURSE IN THE HOSPITAL: After admission, she was placed on bedrest, started on intravenous fluids and blood sugar and blood pressures were brought under control. While she was in she was dialyzed. She had no other problems. She was cleared for discharge on November 23, but would not leave the hospital. She was scheduled to go home after she was dialyzed on November 24. Her blood sugar was high and she was administered a dose of short-acting insulin. It is expected that she will go home. FINAL DIAGNOSES: 1. Hypertensive emergency. 2. Stage 5 CKD, on dialysis. 3. Diabetic retinopathy with legal blindness. 4. Uncontrolled type 1 insulin-dependent diabetes mellitus. OPERATIONS: None. CONSULTATIONS: Nephrology. She is improved. MMODL / CANDYN: [id number] /
[2021-11-24] MEDS ORDERED: diphenhydrAMINE 50 MG/ML 1 ML VIAL IVP STA (21:22)
[2021-11-24] MEDS ORDERED: MELATONIN 5 MG TABLET PO SCH (21:30)
[2021-11-24] MEDS ORDERED: INSULIN REGULAR BOLUS (FROM DRIP BAG) IV ONE (22:11)
[2021-11-24] MEDS ORDERED: INSULIN REGULAR 100 UNIT in SODIUM CHLORIDE 0.9% 100 ML IV SCH (23:45)
[2021-11-25 00:09] LABS: Glucose,Whole Blood 289 mg/dL (70-110)
[2021-11-25 02:20] LABS: Glucose,Whole Blood 153 mg/dL (70-110)
[2021-11-25 04:14] LABS: Glucose,Whole Blood 93 mg/dL (70-110)
[2021-11-25 07:00] LABS: Glucose,Whole Blood 70 mg/dL (70-110)
[2021-11-25] MEDS: INSULIN ASPART (NovoLOG) 100 UNIT/ML VIAL SQ SCH ×4 (07:00→11:50)
[2021-11-25] MEDS: carvediloL 12.5 MG TAB PO SCH (07:02)
[2021-11-25] MEDS: CALCIUM ACETATE 667 MG TAB PO SCH ×2 (07:03→11:49)
[2021-11-25 08:03] LABS: Glucose,Whole Blood 156 mg/dL (70-110)
[2021-11-25 08:04] LABS: Calcium 9.4 mg/dL (8.4-10.2)
[2021-11-25 08:26] VITALS: BP 113/61; PULSE 77; RESP 14; TEMP 98.2
[2021-11-25] MEDS: CYANOCOBALAMIN 500 MCG TAB PO SCH (08:28)
[2021-11-25] MEDS: ATORVASTATIN 40 MG TAB PO SCH (08:28)
[2021-11-25] MEDS: lisinopriL 20 MG TAB PO SCH (08:28)
[2021-11-25] MEDS: ESCITALOPRAM 20 MG TAB PO SCH (08:28)
[2021-11-25] MEDS: ASPIRIN 81 MG PO SCH (08:28)
[2021-11-25] MEDS: PANTOPRAZOLE 40 MG TABLET PO SCH (08:28)
[2021-11-25] MEDS: cloNIDine HCL 0.1 MG TAB PO SCH (08:30)
[2021-11-25 11:31] LABS: Glucose,Whole Blood 371 mg/dL (70-110)
--- NOTE | 2021-11-25 12:44 | P.PN ---
Subjective Patient is seen for follow-up for end-stage renal disease. She was admitted to the hospital with shortness of breath and uncontrolled hypertension associated with volume overload. This has improved with hemodialysis. Patient tolerated dialysis well yesterday. No significant complaints No episodes of hypotension. UF 3 L yesterday Patient did not get discharge as her blood sugar was elevated more than 600. It is better and down to 156 this morning Objective - Vital Signs Vital signs: Vital Signs Temp 98.2 F 11/25/21 08:25 Pulse 77 11/25/21 08:25 Resp 14 11/25/21 08:26 BP 113/61 11/25/21 08:25 Pulse Ox 97 11/25/21 08:25 FiO2 Intake & Output 11/24/21 11/25/21 11/25/21 18:59 06:59 18:59 Intake Total 1110 270 Output Total 3000 Balance -1890 270 Intake: IV 10 10 Invasive Line 1 10 10 Oral 1100 260 Output: Urine 0 Hemodialysis 3000 Other: Voiding Method Toilet # Voids 0 0 - Exam Awake, comfortable, not in any acute distress. Alert oriented 3 Examination of the heart S1 and S2 Examination lungs bilateral breath sounds are heard Abdomen is soft nontender Examination of lower extremities shows no evidence of edema [employer] exam grossly intact Patient is legally blind - Labs CBC & Chem 7: 11/24/21 09:37 11/25/21 07:20 Labs: Abnormal Lab Results - Last 24 Hours (Table) 11/24/21 11/24/21 11/24/21 Range/Units 16:28 16:31 16:50 Sodium (137-145) mmol/L Chloride (98-107) mmol/L BUN (7-17) mg/dL Creatinine (0.52-1.04) mg/dL Glucose 806 H* (74-99) mg/dL POC Glucose (mg/dL) >600 H >600 H (70-110) mg/dL 11/24/21 11/24/21 11/24/21 Range/Units 19:54 19:57 20:28 Sodium (137-145) mmol/L Chloride (98-107) mmol/L BUN (7-17) mg/dL Creatinine (0.52-1.04) mg/dL Glucose 779 H* (74-99) mg/dL POC Glucose (mg/dL) >600 H >600 H (70-110) mg/dL 11/25/21 11/25/21 11/25/21 Range/Units 00:06 02:18 07:20 Sodium 136 L (137-145) mmol/L Chloride 97 L (98-107) mmol/L BUN 50 H (7-17) mg/dL Creatinine 5.94 H (0.52-1.04) mg/dL Glucose (74-99) mg/dL POC Glucose (mg/dL) 289 H 153 H (70-110) mg/dL 11/25/21 11/25/21 Range/Units 08:02 11:30 Sodium (137-145) mmol/L Chloride (98-107) mmol/L BUN (7-17) mg/dL Creatinine (0.52-1.04) mg/dL Glucose (74-99) mg/dL POC Glucose (mg/dL) 156 H 371 H (70-110) mg/dL Assessment and Plan Assessment: 1. End-stage renal disease on hemodialysis on a Monday schedule 2. Hypertensive emergency, improved, partly volume sensitive, status post hemodialysis 11/22/2021 and being dialyzed again today Blood pressure had been low on Monday and Monday and patient did not have any significant ultrafiltration with hemodialysis. 3. Fluid overload 4. CK D mineral bone disorder 5. Brittle diabetes Plan: Hemodialysis in a.m. if patient is not discharged.
[2021-11-25] MEDS ORDERED: INSULIN DETEMIR (LEVEMIR) 100 UNIT/ML SYR SQ SCH (21:00)
--- NOTE | 2021-11-26 10:01 | P.DS ---
Providers Date of admission: 11/21/21 17:46 Expected date of discharge: 11/25/21 Attending physician: Roque Buckner Consults: 11/21/21 17:33 Consult Physician Urgent Consulting Provider: Cindy Amaro Consult Reason/Comments: ESRD Do you want consulting provider notified?: Already Contacted Primary care physician: Roque Buckner Hospital Course: Final diagnosis Hypertensive urgency, present on admission Chronic kidney disease with end-stage renal disease on hemodialysis Diabetic retinopathy with legal blindness Diabetes mellitus type 1, uncontrolled insulin-dependent Full code Discharge disposition Patient is being discharged in a stable condition with guarded prognosis to home. Patient will follow-up with Dr. Buckner in the outpatient setting upon discharge. Patient is to continue with hemodialysis as scheduled. Patient is scheduled for dialysis tomorrow. Total time taken is greater than 35 minutes. Hospital course This is a 30-year-old female with end-stage renal disease and poorly controlled diabetes and admitted for elevated blood sugars along with hypertension and was being closely monitored. Nephrology following closely and maintained on hemodialysis and will continue in the outpatient setting. Patient was scheduled for discharge yesterday although blood sugars found to be elevated over 600 and held for overnight observation and blood sugar control. Patient's blood sugars are improved today and patient reports to feeling well and would like to go home. Strongly encouraged outpatient follow-up with primary care provider this week along with endocrine and continued hemodialysis. Patient is extremely high risk for readmissions and has had multiple hospitalizations. Currently no reports of chest pain, shortness of breath, or palpitations. Patient is afebrile. No reports of nausea or vomiting and patient is tolerating diet. Patient will be discharged home today. Extremely guarded prognosis. On exam vital signs are stable. Cardio S1, S2 are muffled. Respiratory system shows diminished breath sounds at the bases with no wheezing or rhonchi noted. Abdomen is soft and obese, and nontender. Nervous system shows no focal deficits. Please refer to medication reconciliation sheet for a list of medications. The impression and plan of care has been dictated by Cindi Saha, Nurse Practitioner as directed. Dr. Jean MD I have performed a history and examination and MDM of this patient, discussed the same with the dictator, and agree with the dictator's assessment and plan as written ,documented as a scribe. Based on total visit time, I have performed more than 50% of the visit. Patient Condition at Discharge: Fair Plan - Discharge Summary Discharge Rx Participant: No New Discharge Prescriptions: Continue Aspirin EC [Ecotrin Low Dose] 81 mg PO DAILY Escitalopram [Lexapro] 20 mg PO DAILY rOPINIRole HCL [Requip] 0.5 mg PO HS Glucagon Emergency Kit 1 mg IM ONCE PRN #1 kit PRN Reason: Hypoglycemia Cyanocobalamin [Vitamin B-12] 1,000 mcg PO DAILY #60 tab Insulin Lispro [humaLOG Kwikpen] See Protocol SQ ACHS Atorvastatin [Lipitor] 40 mg PO DAILY 30 Days #30 tab Calcium Acetate [PhosLo] 667 mg PO TID-W/MEALS 30 Days #90 tab Jjtfmnui-Uwfwlupdbq-Mqkv Oint [Triple Antibiotic Ointment] 1 applic TOPICAL BID #1 each Isosorbide Mononitrate ER [Imdur] 30 mg PO HS Ergocalciferol (Vitamin D2) [Drisdol (50,000 Iu)] 1,250 mcg PO COPELAND carvediloL [Coreg] 25 mg PO BID Acetaminophen Tab [Tylenol] 650 mg PO Q6HR PRN #30 tab PRN Reason: Fever And/ Or Pain Melatonin 5 - 10 mg PO HS PRN PRN Reason: Insomnia Albuterol Inhaler [Ventolin Hfa Inhaler] 1 puff INHALATION RT-QID PRN 30 Days #8 gm PRN Reason: Shortness Of Breath Insulin Glargine,Hum.rec.anlog [Lantus Solostar Pen] 13 units SQ HS NIFEdipine XL [Procardia XL] 120 mg PO DAILY 30 Days #60 tab Pantoprazole Sodium [Protonix] 20 mg PO BID #30 tab Darbepoetin Tate [Aranesp] 60 mcg SQ Q7D #30 each lisinopriL 40 mg PO DAILY cloNIDine HCL [Catapres] 0.3 mg PO TID Discharge Medication List Aspirin EC [Ecotrin Low Dose] 81 mg PO DAILY 04/03/21 [History] Ergocalciferol (Vitamin D2) [Drisdol (50,000 Iu)] 1,250 mcg PO COPELAND 04/03/21 [History] Isosorbide Mononitrate ER [Imdur] 30 mg PO HS 04/03/21 [History] carvediloL [Coreg] 25 mg PO BID 04/03/21 [History] Acetaminophen Tab [Tylenol] 650 mg PO Q6HR PRN #30 tab 04/09/21 [Rx] Escitalopram [Lexapro] 20 mg PO DAILY 04/17/21 [History] rOPINIRole HCL [Requip] 0.5 mg PO HS 04/17/21 [History] Glucagon Emergency Kit 1 mg IM ONCE PRN #1 kit 06/15/21 [Rx] Melatonin 5 - 10 mg PO HS PRN 06/29/21 [History] Albuterol Inhaler [Ventolin Hfa Inhaler] 1 puff INHALATION RT-QID PRN 30 Days #8 gm 09/06/21 [Rx] Cyanocobalamin [Vitamin B-12] 1,000 mcg PO DAILY #60 tab 09/06/21 [Rx] Insulin Glargine,Hum.rec.anlog [Lantus Solostar Pen] 13 units SQ HS 09/21/21 [History] Insulin Lispro [humaLOG Kwikpen] See Protocol SQ ACHS 09/21/21 [History] Atorvastatin [Lipitor] 40 mg PO DAILY 30 Days #30 tab 10/13/21 [Rx] Calcium Acetate [PhosLo] 667 mg PO TID-W/MEALS 30 Days #90 tab 10/13/21 [Rx] NIFEdipine XL [Procardia XL] 120 mg PO DAILY 30 Days #60 tab 10/13/21 [Rx] Coescrnl-Fxlxthbxoi-Ksmk Oint [Triple Antibiotic Ointment] 1 applic TOPICAL BID #1 each 10/13/21 [Rx] Pantoprazole Sodium [Protonix] 20 mg PO BID #30 tab 10/15/21 [Rx] Darbepoetin Tate [Aranesp] 60 mcg SQ Q7D #30 each 11/12/21 [Rx] cloNIDine HCL [Catapres] 0.3 mg PO TID 11/21/21 [History] lisinopriL 40 mg PO DAILY 11/21/21 [History] Follow up Appointment(s)/Referral(s): Roque Buckner MD [Primary Care Provider] - 11/30/21 9:30 am Patient Instructions/Handouts: Chronic Kidney Disease Diet (DC), Dialysis Diet (GEN), Heart Healthy Diet (ED), Seasoning Without Salt (DC), Hypoglycemia in a Person with Diabetes (ED), Basic Carbohydrate Counting (DC), Meal Planning with the Plate Method (DC), Chronic Hypertension (ED), End Stage Kidney Disease (GEN), Hypertension and Diabetes (ED) Discharge Disposition: HOME SELF-CARE
[2021-11-28] MEDS ORDERED: ERGOCALCIFEROL 1,250 MCG (50,000 IU) CAPSULE PO SCH (09:00)
== END 2021-11-25 14:15 | disposition home or self-care (01) | DRG 304 ==
LOC: EC 14:58 → 3SCARD 17:46
PROVIDERS: ADMIT Family Medicine; ATTEND Family Medicine
PROC: 5A1D70Z Performance of Urinary Filtration, Intermittent, Less than 6 Hours Per Day (ICD-10-PCS; principal; 2021-11-22)
DX: I16.1 Hypertensive emergency (principal); N18.6 End stage renal disease; I12.0 Hypertensive chronic kidney disease with stage 5 chronic kidney disease or end stage renal disease; G25.81 Restless legs syndrome; E10.40 Type 1 diabetes mellitus with diabetic neuropathy, unspecified; E10.319 Type 1 diabetes mellitus with unspecified diabetic retinopathy without macular edema; H54.8 Legal blindness, as defined in USA; E10.22 Type 1 diabetes mellitus with diabetic chronic kidney disease; F32.A Depression, unspecified; F41.9 Anxiety disorder, unspecified; E83.89 Other disorders of mineral metabolism; R07.9 Chest pain, unspecified; E87.70 Fluid overload, unspecified; R01.1 Cardiac murmur, unspecified; L89.102 Pressure ulcer of unspecified part of back, stage 2; E10.65 Type 1 diabetes mellitus with hyperglycemia; Z99.2 Dependence on renal dialysis; Z79.899 Other long term (current) drug therapy; Z79.4 Long term (current) use of insulin; Z79.82 Long term (current) use of aspirin; Z82.49 Family history of ischemic heart disease and other diseases of the circulatory system; Z80.8 Family history of malignant neoplasm of other organs or systems; Z81.8 Family history of other mental and behavioral disorders; Z82.0 Family history of epilepsy and other diseases of the nervous system; Z90.49 Acquired absence of other specified parts of digestive tract; Z98.890 Other specified postprocedural states; Z86.73 Personal history of transient ischemic attack (TIA), and cerebral infarction without residual deficits; Z90.89 Acquired absence of other organs
CPT/HCPCS: 36415; 71046; 80048; 80053; 82009; 82947; 83735; 84484; 85025; 85027; 85610; 85730; 90935; 93005; 96374; 96375; 96376; 99285

== ENCOUNTER 2021-12-01 23:01 | Emergency (ER) | payer MEDICARE, OTHER ==
[2021-12-01 23:32] VITALS: PULSE 88; RESP 17; TEMP 98.7
[2021-12-02] MEDS ORDERED: SODIUM CHLORIDE 0.9% 1,000 ML IV STA (00:41)
--- NOTE | 2021-12-02 00:42 | ED ---
Chest Pain HPI - General Chief Complaint: Chest Pain Stated Complaint: Chest pain Time Seen by Provider: 12/02/21 00:38 Source: patient, RN notes reviewed, old records reviewed Mode of arrival: ambulatory Limitations: no limitations - History of Present Illness Initial Comments: This is a 30-year-old female to the emergency department for evaluation patient presents today for evaluation regarding altered mental status. Confusion some chest pain elevated blood pressure patient is significant history of similar situation. Patient has severe disease dialysis hypertension MD Complaint: chest pain, other (Here hypertension) -: hour(s) Onset: during rest Pain Location: substernal, left chest Pain Radiation: LUE Severity: moderate Quality: tightness, heaviness Consistency: constant Improves With: nothing Worsens With: nothing Context: recent illness Anginal Symptoms: dyspnea Other Symptoms: palpitations Treatments Prior to Arrival: none - Related Data Home Medications Medication Instructions Recorded Confirmed Aspirin EC [Ecotrin Low Dose] 81 mg PO DAILY 04/03/21 11/21/21 Ergocalciferol (Vitamin D2) 1,250 mcg PO COPELAND 04/03/21 11/21/21 [Drisdol (50,000 Iu)] Isosorbide Mononitrate ER [Imdur] 30 mg PO HS 04/03/21 11/21/21 carvediloL [Coreg] 25 mg PO BID 04/03/21 11/21/21 Escitalopram [Lexapro] 20 mg PO DAILY 04/17/21 11/21/21 rOPINIRole HCL [Requip] 0.5 mg PO HS 04/17/21 11/21/21 Melatonin 5 - 10 mg PO HS PRN 06/29/21 11/21/21 Insulin Glargine,Hum.rec.anlog 13 units SQ HS 09/21/21 11/21/21 [Lantus Solostar Pen] Insulin Lispro [humaLOG Kwikpen] See Protocol SQ ACHS 09/21/21 11/21/21 cloNIDine HCL [Catapres] 0.3 mg PO TID 11/21/21 11/21/21 lisinopriL 40 mg PO DAILY 11/21/21 11/21/21 Previous Rx's Medication Instructions Recorded Acetaminophen Tab [Tylenol] 650 mg PO Q6HR PRN #30 tab 04/09/21 Glucagon Emergency Kit 1 mg IM ONCE PRN #1 kit 06/15/21 Albuterol Inhaler [Ventolin Hfa 1 puff INHALATION RT-QID PRN 30 09/06/21 Inhaler] Days #8 gm Cyanocobalamin [Vitamin B-12] 1,000 mcg PO DAILY #60 tab 09/06/21 Atorvastatin [Lipitor] 40 mg PO DAILY 30 Days #30 tab 10/13/21 Calcium Acetate [PhosLo] 667 mg PO TID-W/MEALS 30 Days #90 10/13/21 tab NIFEdipine XL [Procardia XL] 120 mg PO DAILY 30 Days #60 tab 10/13/21 Eehrrwkc-Illvitqhpt-Virr Oint 1 applic TOPICAL BID #1 each 10/13/21 [Triple Antibiotic Ointment] Pantoprazole Sodium [Protonix] 20 mg PO BID #30 tab 10/15/21 Darbepoetin Tate [Aranesp] 60 mcg SQ Q7D #30 each 11/12/21 Allergies Allergy/AdvReac Type Severity Reaction Status Date / Time Fish Containing Products Allergy Rash/Hives Verified 12/01/21 23:28 [Fish] iodine Allergy Anaphylaxis Verified 12/01/21 23:28 Review of Systems ROS Statement: Those systems with pertinent positive or pertinent negative responses have been documented in the HPI. ROS Other: All systems not noted in ROS Statement are negative. EKG Findings - EKG Comments: EKG Findings:: EKG is sinus rhythm 87 LA 135 QRS 89 QTc 448 Past Medical History Past Medical History: CVA/TIA, Diabetes Mellitus, Dialysis, Eye Disorder, Hypertension, Renal Disease Additional Past Medical History / Comment(s): ESRD with hemodialysis M/W/F, IDDM type 1, DKA, neuropathy bilateral legs/feet, diabetic retinopathy/legally blind, RLS, gastritis, severe hypokalemia, fluid retention in abdomin/legs. History of Any Multi-Drug Resistant Organisms: None Reported Past Surgical History: Appendectomy, Section, Cholecystectomy Additional Past Surgical History / Comment(s): fistula left arm Past Anesthesia/Blood Transfusion Reactions: No Reported Reaction Past Psychological History: Anxiety, Depression Smoking Status: Never smoker Past Alcohol Use History: None Reported Past Drug Use History: None Reported - Past Family History Mother Family Medical History: Cancer, Hypertension Additional Family Medical History / Comment(s): Thyroid cancer, bipolar Father Family Medical History: Seizure Disorder Additional Family Medical History / Comment(s): Epilepsy General Exam Limitations: no limitations General appearance: alert, in no apparent distress Head exam: Present: atraumatic, normocephalic, normal inspection Eye exam: Present: normal appearance, PERRL, EOMI. Absent: scleral icterus, conjunctival injection, periorbital swelling ENT exam: Present: normal exam, mucous membranes moist Neck exam: Present: normal inspection. Absent: tenderness, meningismus, lymphadenopathy Respiratory exam: Present: normal lung sounds bilaterally. Absent: respiratory distress, wheezes, rales, rhonchi, stridor Cardiovascular Exam: Present: regular rate, normal rhythm, normal heart sounds. Absent: systolic murmur, diastolic murmur, rubs, gallop, clicks GI/Abdominal exam: Present: soft, normal bowel sounds. Absent: distended, tenderness, guarding, rebound, rigid Extremities exam: Present: normal inspection, full ROM, normal capillary refill. Absent: tenderness, pedal edema, joint swelling, calf tenderness Back exam: Present: normal inspection Neurological exam: Present: alert, oriented X3, CN II-XII intact Psychiatric exam: Present: normal affect, normal mood Skin exam: Present: warm, dry, intact, normal color. Absent: rash Course Vital Signs 12/01/21 12/02/21 23:29 01:57 Temperature 98.7 F Pulse Rate 88 Respiratory 17 Rate Blood Pressure 226/109 114/57 O2 Sat by Pulse 95 Oximetry - Reevaluation(s) Reevaluation #1: 12/02/21 00:45 Medical record is reviewed Reevaluation #2: 12/02/21 03:16 Patient's blood pressure much improved she feels much better with like discharge home Reevaluation #3: 12/02/21 03:16 Patient informed results questions have been answered Chest Pain MDM - MDM 30 female presents today for evaluation regards to elevated blood pressure not feeling well anxiety uncontrolled blood pressure. Also having some chest pain. Symptoms improved while here in the ER patient can be discharged home Disposition Clinical Impression: Atypical chest pain, Chest pain, Hypertension Disposition: HOME SELF-CARE Condition: Good Instructions (If sedation given, give patient instructions): Chest Pain (ED) Is patient prescribed a controlled substance at d/c from ED?: No Referrals: Roque Buckner MD [Primary Care Provider] - 1-2 days
[2021-12-02] MEDS ORDERED: LABETALOL 5 MG/ML VIAL MDV IVP STA (01:04)
[2021-12-02] MEDS ORDERED: hydrALAZINE HCL 20 MG/ML 1 ML VIAL IVP STA (01:04)
[2021-12-02 01:48] LABS: Anisocytosis Slight; Basophils # (A) 0.1 k/uL (0-0.2); Basophils % (A) 2 %; Eosinophils # (A) 0.2 k/uL (0-0.7); Eosinophils % (A) 4 %; HCT 30.1 % (34.0-46.0); Hypochromasia Moderate; Lymphocytes # (A) 0.7 k/uL (1.0-4.8); Lymphocytes % (A) 14 %; MCH 30.4 pg (25.0-35.0); MCHC 33.3 g/dL (31.0-37.0); MCV 91.4 fL (80.0-100.0); Mean Platelet Volume 8.6; Monocytes # (A) 0.2 k/uL (0-1.0); Monocytes % (A) 4 %; Neutrophils # (A) 4.1 k/uL (1.3-7.7); Neutrophils % (A) 76 %; Platelet Count 312 k/uL (150-450); Poikilocytosis Slight; RDW 16.3 % (11.5-15.5); WBC 5.4 k/uL (3.8-10.6)
[2021-12-02] MEDS ORDERED: LORazepam 2 MG/ML INJ IV STA (01:58)
[2021-12-02 02:01] LABS: INR 0.9 (<1.2); Partial Thromboplastin Time 23.9 sec (22.0-30.0)
[2021-12-02 02:24] LABS: Phosphorus 3.3 mg/dL (2.5-4.5); Potassium 4.4 mmol/L (3.5-5.1); Total Bilirubin 0.5 mg/dL (0.2-1.3); Total Protein 6.8 g/dL (6.3-8.2)
[2021-12-02 03:36] VITALS: BP 121/70
== END 2021-12-02 03:53 | disposition home or self-care (01) ==
LOC: EC 23:01
DX: R41.82 Altered mental status, unspecified (principal); R07.89 Other chest pain; I10 Essential (primary) hypertension; Z91.041 Radiographic dye allergy status; Z91.013 Allergy to seafood
CPT/HCPCS: 36415; 93005; 83880; 80053; 83605; 83735; 84100; 84484; 85025; 85610; 85730; 99285; 96375; 96374; J2060; J0360

== ENCOUNTER 2021-12-06 12:11 | Inpatient (IN) | payer MEDICARE, OTHER ==
[2021-12-06] MEDS ORDERED: hydrALAZINE HCL 20 MG/ML 1 ML VIAL IVP STA ×2 (12:46→13:37)
[2021-12-06] MEDS ORDERED: LORazepam 2 MG/ML INJ IV STA (12:46)
--- NOTE | 2021-12-06 12:59 | ED ---
General Adult HPI - General Chief complaint: Chest Pain Stated complaint: hypertension/chest pain Time Seen by Provider: 12/06/21 12:15 Source: patient, EMS, RN notes reviewed, old records reviewed Mode of arrival: EMS Limitations: no limitations, physical limitation - History of Present Illness Initial comments: This is a 30-year-old female presents emergency Department complaining that her blood pressure is high and she's having some chest discomfort. Patient states this is a regular occurrence for her. Patient states she does take her blood pressure medication. Patient states she was supposed be dialyzed today but they sent her in instead. Patient states she is short of breath because she thinks she is fluid overloaded. Patient denies any fever chills or cough per patient denies abdominal pain patient denies nausea vomiting diarrhea. - Related Data Home Medications Medication Instructions Recorded Confirmed Aspirin EC [Ecotrin Low Dose] 81 mg PO DAILY 04/03/21 11/21/21 Ergocalciferol (Vitamin D2) 1,250 mcg PO COPELAND 04/03/21 11/21/21 [Drisdol (50,000 Iu)] Isosorbide Mononitrate ER [Imdur] 30 mg PO HS 04/03/21 11/21/21 carvediloL [Coreg] 25 mg PO BID 04/03/21 11/21/21 Escitalopram [Lexapro] 20 mg PO DAILY 04/17/21 11/21/21 rOPINIRole HCL [Requip] 0.5 mg PO HS 04/17/21 11/21/21 Melatonin 5 - 10 mg PO HS PRN 06/29/21 11/21/21 Insulin Glargine,Hum.rec.anlog 13 units SQ HS 09/21/21 11/21/21 [Lantus Solostar Pen] Insulin Lispro [humaLOG Kwikpen] See Protocol SQ ACHS 09/21/21 11/21/21 cloNIDine HCL [Catapres] 0.3 mg PO TID 11/21/21 11/21/21 lisinopriL 40 mg PO DAILY 11/21/21 11/21/21 Previous Rx's Medication Instructions Recorded Acetaminophen Tab [Tylenol] 650 mg PO Q6HR PRN #30 tab 04/09/21 Glucagon Emergency Kit 1 mg IM ONCE PRN #1 kit 06/15/21 Albuterol Inhaler [Ventolin Hfa 1 puff INHALATION RT-QID PRN 30 09/06/21 Inhaler] Days #8 gm Cyanocobalamin [Vitamin B-12] 1,000 mcg PO DAILY #60 tab 09/06/21 Atorvastatin [Lipitor] 40 mg PO DAILY 30 Days #30 tab 10/13/21 Calcium Acetate [PhosLo] 667 mg PO TID-W/MEALS 30 Days #90 10/13/21 tab NIFEdipine XL [Procardia XL] 120 mg PO DAILY 30 Days #60 tab 10/13/21 Xupymnrq-Yafemlipht-Hegy Oint 1 applic TOPICAL BID #1 each 10/13/21 [Triple Antibiotic Ointment] Pantoprazole Sodium [Protonix] 20 mg PO BID #30 tab 10/15/21 Darbepoetin Tate [Aranesp] 60 mcg SQ Q7D #30 each 11/12/21 Allergies Allergy/AdvReac Type Severity Reaction Status Date / Time Fish Containing Products Allergy Rash/Hives Verified 12/01/21 23:28 [Fish] iodine Allergy Anaphylaxis Verified 12/01/21 23:28 Review of Systems ROS Statement: Those systems with pertinent positive or pertinent negative responses have been documented in the HPI. ROS Other: All systems not noted in ROS Statement are negative. Past Medical History Past Medical History: CVA/TIA, Diabetes Mellitus, Dialysis, Eye Disorder, Hypertension, Renal Disease Additional Past Medical History / Comment(s): ESRD with hemodialysis M/W/F, IDDM type 1, DKA, neuropathy bilateral legs/feet, diabetic retinopathy/legally blind, RLS, gastritis, severe hypokalemia, fluid retention in abdomin/legs. History of Any Multi-Drug Resistant Organisms: None Reported Past Surgical History: Appendectomy, Section, Cholecystectomy Additional Past Surgical History / Comment(s): fistula left arm Past Anesthesia/Blood Transfusion Reactions: No Reported Reaction Past Psychological History: Anxiety, Depression Smoking Status: Never smoker Past Alcohol Use History: None Reported Past Drug Use History: None Reported - Past Family History Mother Family Medical History: Cancer, Hypertension Additional Family Medical History / Comment(s): Thyroid cancer, bipolar Father Family Medical History: Seizure Disorder Additional Family Medical History / Comment(s): Epilepsy General Exam - General Exam Comments Initial Comments: GENERAL: Patient is well-developed and well-nourished. Patient is nontoxic and well- hydrated and is in mild distress. ENT: Neck is soft and supple. No significant lymphadenopathy is noted. Oropharynx is clear. Moist mucous membranes. Neck has full range of motion without eliciting any pain. EYES: The sclera were anicteric and conjunctiva were pink and moist. Extraocular movements were intact and pupils were equal round and reactive to light. Eyelids were unremarkable. PULMONARY: Patient is crackles bilaterally CARDIOVASCULAR: There is a regular rate and rhythm without any murmurs gallops or rubs. ABDOMEN: Soft and nontender with normal bowel sounds. SKIN: Skin is clear with no lesions or rashes and otherwise unremarkable. NEUROLOGIC: Patient is alert and oriented x3. Cranial nerves II through XII are grossly intact. Motor and sensory are also intact. Normal speech, volume and content. Symmetrical smile. MUSCULOSKELETAL: Normal extremities with adequate strength and full range of motion. No lower extremity swelling or edema. No calf tenderness. LYMPHATICS: No significant lymphadenopathy is noted PSYCHIATRIC: Normal psychiatric evaluation. Limitations: no limitations, physical limitation Course Vital Signs 12/06/21 12/06/21 12/06/21 12:15 12:21 13:36 Temperature 98.2 F 98.2 F Pulse Rate 78 80 Pulse Rate [ 78 Ceramic Capacitor Processor ] Respiratory 16 16 Rate Blood Pressure 240/125 196/108 O2 Sat by Pulse 99 99 Oximetry 12/06/21 12/06/21 14:54 15:17 Temperature Pulse Rate 77 76 Pulse Rate [ Ceramic Capacitor Processor ] Respiratory 16 16 Rate Blood Pressure 188/103 166/98 O2 Sat by Pulse 98 98 Oximetry Medical Decision Making - Medical Decision Making EKG shows sinus rhythm at 76 bpm [place] interval is 213 QRS is under 40 QT interval is 436 QTC is 467 EKG shows LVH as well as T-wave inversions in 1 and aVL Chest x-ray shows pulmonary edema. Patient received 2 doses hydralazine about her blood pressure down. Dr. Poe was consulted and she is setting up for dialysis for the patient. I spoke with Dr. Olvera and he agreed to admit the patient admitted the patient wrote admitting orders. I spoke with Dr. Poe and she wanted the patient to have insulin D50 and aortic gave the patient calcium chloride for the hyperkalemia. Patient will be dialyzed soon - Lab Data Result diagrams: 12/06/21 13:08 12/06/21 13:08 Lab Results 12/06/21 12/06/21 12/06/21 Range/Units 13:08 13:08 13:08 WBC 7.2 (3.8-10.6) k/uL RBC 3.37 L (3.80-5.40) m/uL Hgb 10.2 L (11.4-16.0) gm/dL Hct 31.3 L (34.0-46.0) % MCV 93.0 (80.0-100.0) fL MCH 30.2 (25.0-35.0) pg MCHC 32.4 (31.0-37.0) g/dL RDW 17.6 H (11.5-15.5) % Plt Count 349 (150-450) k/uL MPV 8.3 Neutrophils % 78 % Lymphocytes % 14 % Monocytes % 3 % Eosinophils % 3 % Basophils % 1 % Neutrophils # 5.6 (1.3-7.7) k/uL Lymphocytes # 1.0 (1.0-4.8) k/uL Monocytes # 0.2 (0-1.0) k/uL Eosinophils # 0.2 (0-0.7) k/uL Basophils # 0.1 (0-0.2) k/uL Hypochromasia Slight Anisocytosis Slight PT 10.9 (9.0-12.0) sec INR 1.0 (<1.2) APTT 23.4 (22.0-30.0) sec Sodium 136 L (137-145) mmol/L Potassium 7.0 H* (3.5-5.1) mmol/L Chloride 97 L (98-107) mmol/L Carbon Dioxide 21 L (22-30) mmol/L Anion Gap 18 mmol/L BUN 65 H (7-17) mg/dL Creatinine 8.43 H* (0.52-1.04) mg/dL Est GFR (CKD-EPI)AfAm 7 (>60 ml/min/1.73 sqM) Est GFR (CKD-EPI)NonAf 6 (>60 ml/min/1.73 sqM) Glucose 209 H (74-99) mg/dL Calcium 8.3 L (8.4-10.2) mg/dL Magnesium 2.2 (1.6-2.3) mg/dL Total Bilirubin 0.5 (0.2-1.3) mg/dL AST 31 (14-36) U/L ALT 25 (4-34) U/L Alkaline Phosphatase 197 H (38-126) U/L Troponin I (0.000-0.034) ng/mL NT-Pro-B Natriuret Pep pg/mL Total Protein 6.3 (6.3-8.2) g/dL Albumin 3.9 (3.5-5.0) g/dL 12/06/21 12/06/21 Range/Units 13:08 13:08 WBC (3.8-10.6) k/uL RBC (3.80-5.40) m/uL Hgb (11.4-16.0) gm/dL Hct (34.0-46.0) % MCV (80.0-100.0) fL MCH (25.0-35.0) pg MCHC (31.0-37.0) g/dL RDW (11.5-15.5) % Plt Count (150-450) k/uL MPV Neutrophils % % Lymphocytes % % Monocytes % % Eosinophils % % Basophils % % Neutrophils # (1.3-7.7) k/uL Lymphocytes # (1.0-4.8) k/uL Monocytes # (0-1.0) k/uL Eosinophils # (0-0.7) k/uL Basophils # (0-0.2) k/uL Hypochromasia Anisocytosis PT (9.0-12.0) sec INR (<1.2) APTT (22.0-30.0) sec Sodium (137-145) mmol/L Potassium (3.5-5.1) mmol/L Chloride (98-107) mmol/L Carbon Dioxide (22-30) mmol/L Anion Gap mmol/L BUN (7-17) mg/dL Creatinine (0.52-1.04) mg/dL Est GFR (CKD-EPI)AfAm (>60 ml/min/1.73 sqM) Est GFR (CKD-EPI)NonAf (>60 ml/min/1.73 sqM) Glucose (74-99) mg/dL Calcium (8.4-10.2) mg/dL Magnesium (1.6-2.3) mg/dL Total Bilirubin (0.2-1.3) mg/dL AST (14-36) U/L ALT (4-34) U/L Alkaline Phosphatase (38-126) U/L Troponin I <0.012 (0.000-0.034) ng/mL NT-Pro-B Natriuret Pep 86756 pg/mL Total Protein (6.3-8.2) g/dL Albumin (3.5-5.0) g/dL Critical Care Time Critical Care Time: Yes Total Critical Care Time: 35 Disposition Clinical Impression: Pulmonary edema, Chronic renal failure, Hypertensive urgency, Hyperkalemia Disposition: ADMITTED IP TO THIS [facility] Time of Disposition: 14:52
[2021-12-06 13:19] LABS: Anisocytosis Slight; Basophils # (A) 0.1 k/uL (0-0.2); Basophils % (A) 1 %; Eosinophils # (A) 0.2 k/uL (0-0.7); Eosinophils % (A) 3 %; HCT 31.3 % (34.0-46.0); HGB 10.2 gm/dL (11.4-16.0); Hypochromasia Slight; Lymphocytes % (A) 14 %; MCH 30.2 pg (25.0-35.0); MCHC 32.4 g/dL (31.0-37.0); Mean Platelet Volume 8.3; Monocytes # (A) 0.2 k/uL (0-1.0); Monocytes % (A) 3 %; Neutrophils # (A) 5.6 k/uL (1.3-7.7); Neutrophils % (A) 78 %; Platelet Count 349 k/uL (150-450); RBC 3.37 m/uL (3.80-5.40); RDW 17.6 % (11.5-15.5); WBC 7.2 k/uL (3.8-10.6)
[2021-12-06 13:30] LABS: Albumin 3.9 g/dL (3.5-5.0); Calcium 8.3 mg/dL (8.4-10.2); Magnesium 2.2 mg/dL (1.6-2.3); Partial Thromboplastin Time 23.4 sec (22.0-30.0); Prothrombin Time 10.9 sec (9.0-12.0); Total Bilirubin 0.5 mg/dL (0.2-1.3); Total Protein 6.3 g/dL (6.3-8.2)
--- NOTE | 2021-12-06 13:47 | XR ---
EXAMINATION TYPE: XR chest 2V DATE OF EXAM: 12/06/2021 COMPARISON: 11/21/2021 TECHNIQUE: PA and lateral views submitted. HISTORY: Chest pain FINDINGS: Cardiomegaly with diffuse interstitial pattern. No pneumothorax. There are tiny bilateral pleural eff usions. Heart is enlarged. Findings are similar to prior exam. Osseous structures are stable. IMPRESSION: 1. Diffuse interstitial pattern similar to the prior exam. Suspect interstitial pneumonitis or pneumo lázaro versus CHF.
[2021-12-06] MEDS ORDERED: CALCIUM CHLORIDE 100 MG/ML 10 ML SYRINGE IVP STA (14:58)
[2021-12-06] MEDS ORDERED: INSULIN REGULAR 100 UNIT/ML VIAL (IV) IV ONE (15:31)
[2021-12-06] MEDS ORDERED: DEXTROSE 50% SYRINGE 50 ML IVP STA (15:31)
[2021-12-06] MEDS: diphenhydrAMINE 50 MG/ML 1 ML VIAL IVP PRN (17:20)
[2021-12-06] MEDS: HYDROcodone/APAP 5-325MG 1 EACH TAB PO PRN (18:59)
[2021-12-06] MEDS: hydrALAZINE HCL 50 MG TAB PO SCH ×2 (18:59→21:30)
[2021-12-06] MEDS ORDERED: ALBUTEROL NEBULIZED 2.5 MG/3 ML INHALATION PRN (21:23)
[2021-12-06] MEDS ORDERED: MELATONIN 5 MG TABLET PO PRN (21:23)
[2021-12-06] MEDS ORDERED: ACETAMINOPHEN TAB 325 MG TAB PO PRN (21:23)
[2021-12-06 21:24] LABS: Glucose,Whole Blood 78 mg/dL (70-110)
[2021-12-06] MEDS: LORazepam 0.5 MG TAB PO PRN (22:05)
[2021-12-06] MEDS: PANTOPRAZOLE 40 MG TABLET PO SCH (22:05)
[2021-12-06] MEDS: ISOSORBIDE MONONITRATE ER 30 MG TAB.ER.24H PO SCH (22:05)
[2021-12-06] MEDS: cloNIDine HCL 0.2 MG TAB PO SCH (22:05)
[2021-12-06] MEDS: carvediloL 12.5 MG TAB PO SCH (22:06)
[2021-12-06] MEDS: INSULIN DETEMIR (LEVEMIR) 100 UNIT/ML SYR SQ SCH (22:12)
[2021-12-06] MEDS: buPROPion SR 150 MG TABLET.ER PO SCH (22:12)
[2021-12-06] MEDS: INSULIN ASPART (NovoLOG) 100 UNIT/ML VIAL SQ SCH (22:29)
[2021-12-07] MEDS: LOSARTAN 50 MG TAB PO SCH ×2 (00:17→13:25)
[2021-12-07 02:04] LABS: Glucose,Whole Blood 137 mg/dL (70-110)
[2021-12-07 04:47] LABS: Glucose,Whole Blood 34 mg/dL (70-110)
[2021-12-07] MEDS ORDERED: DEXTROSE 50% SYRINGE 50 ML IVP STA (04:51)
[2021-12-07 05:02] LABS: Glucose,Whole Blood 275 mg/dL (70-110)
[2021-12-07] MEDS: HYDROcodone/APAP 5-325MG 1 EACH TAB PO PRN (05:07)
[2021-12-07 06:03] LABS: Glucose,Whole Blood 263 mg/dL (70-110)
[2021-12-07] MEDS: INSULIN ASPART (NovoLOG) 100 UNIT/ML VIAL SQ SCH ×4 (06:40→21:19)
[2021-12-07] MEDS: CALCIUM ACETATE 667 MG TAB PO SCH ×3 (06:40→17:08)
[2021-12-07] MEDS: PANTOPRAZOLE 40 MG TABLET PO SCH (06:40)
[2021-12-07] MEDS: ASPIRIN 81 MG PO SCH (09:19)
[2021-12-07] MEDS: CYANOCOBALAMIN 500 MCG TAB PO SCH (09:19)
[2021-12-07] MEDS: ESCITALOPRAM 20 MG TAB PO SCH (09:19)
[2021-12-07] MEDS: ATORVASTATIN 40 MG TAB PO SCH (09:19)
[2021-12-07] MEDS: LORazepam 0.5 MG TAB PO PRN ×2 (09:19→20:11)
[2021-12-07 10:27] LABS: Hepatitis B Surface AB- Quant 82.9 mIU/mL; Hepatitis B Surface Antibody Reactive (Nonreactive); Hepatitis B Surface Antigen Nonreactive (Nonreactive)
[2021-12-07 11:29] LABS: Glucose,Whole Blood 79 mg/dL (70-110)
[2021-12-07 13:14] VITALS: BMI 18.8
[2021-12-07] MEDS: buPROPion SR 150 MG TABLET.ER PO SCH ×2 (13:24→21:20)
[2021-12-07] MEDS: hydrALAZINE HCL 50 MG TAB PO SCH ×3 (13:25→21:20)
[2021-12-07] MEDS: cloNIDine HCL 0.2 MG TAB PO SCH ×3 (13:25→21:43)
[2021-12-07] MEDS: carvediloL 12.5 MG TAB PO SCH ×2 (13:32→21:20)
--- NOTE | 2021-12-07 13:36 | P.NPCON ---
History of Present Illness - Reason for Consult end stage renal disease - History of Present Illness Patient is a 30-year-old female with end-stage renal disease maintained on hemodialysis on a Monday schedule. This is another admission for this patient with complaints of shortness of david th and volume overload. Blood pressure was significantly elevated on admission. Patient had hemodialysis yesterday of 4-1/2 L of fluid removed. Blood pressure has improved. Patient is overall feeling better. Patient states that she did not miss any of her treatments. She admits to increased intake of fluid over the weekend. Dry weight was also adjusted as outpatient per patient. No fever chills nausea vomiting or diarrhea. Review of Systems As per HPI Past Medical History Past Medical History: CVA/TIA, Diabetes Mellitus, Dialysis, Eye Disorder, Hypertension, Renal Disease Additional Past Medical History / Comment(s): ESRD with hemodialysis M/W/F, IDDM type 1, DKA, neuropathy bilateral legs/feet, diabetic retinopathy/legally blind, RLS, gastritis, severe hypokalemia, fluid retention in abdomin/legs. History of Any Multi-Drug Resistant Organisms: None Reported Past Surgical History: Appendectomy, Section, Cholecystectomy Additional Past Surgical History / Comment(s): fistula left arm Past Anesthesia/Blood Transfusion Reactions: No Reported Reaction Smoking Status: Never smoker - Past Family History Mother Family Medical History: Cancer, Hypertension Additional Family Medical History / Comment(s): Thyroid cancer, bipolar Father Family Medical History: Seizure Disorder Additional Family Medical History / Comment(s): Epilepsy Medications and Allergies Home Medications Medication Instructions Recorded Confirmed Type Ergocalciferol (Vitamin D2) 1,250 mcg PO Q30D 04/03/21 12/06/21 History [Drisdol (50,000 Iu)] Isosorbide Mononitrate ER [Imdur] 30 mg PO HS 04/03/21 12/06/21 History carvediloL [Coreg] 25 mg PO BID 04/03/21 12/06/21 History Acetaminophen Tab [Tylenol] 650 mg PO Q6HR PRN #30 tab 04/09/21 12/06/21 Rx Escitalopram [Lexapro] 20 mg PO DAILY 04/17/21 12/06/21 History rOPINIRole HCL [Requip] 0.5 mg PO HS 04/17/21 12/06/21 History Glucagon Emergency Kit 1 mg IM ONCE PRN #1 kit 06/15/21 12/06/21 Rx Melatonin 5 - 10 mg PO HS PRN 06/29/21 12/06/21 History Cyanocobalamin [Vitamin B-12] 1,000 mcg PO DAILY #60 tab 09/06/21 12/06/21 Rx Insulin Glargine,Hum.rec.anlog 13 units SQ HS 09/21/21 12/06/21 History [Lantus Solostar Pen] Insulin Lispro [humaLOG Kwikpen] See Protocol SQ ACHS 09/21/21 12/06/21 History Atorvastatin [Lipitor] 40 mg PO DAILY 30 Days #30 tab 10/13/21 12/06/21 Rx Calcium Acetate [PhosLo] 667 mg PO TID-W/MEALS 30 Days #90 10/13/21 12/06/21 Rx tab Fckqhrit-Auhddghboj-Wyxw Oint 1 applic TOPICAL BID #1 each 10/13/21 12/06/21 Rx [Triple Antibiotic Ointment] Pantoprazole Sodium [Protonix] 20 mg PO BID #30 tab 10/15/21 12/06/21 Rx cloNIDine HCL [Catapres] 0.3 mg PO TID 11/21/21 12/06/21 History Albuterol Inhaler [Ventolin Hfa 2 puff INHALATION RT-QID PRN 12/06/21 12/06/21 History Inhaler] Aspirin 81 mg PO DAILY 12/06/21 12/06/21 History LORazepam [Ativan] 0.5 mg PO TID PRN 12/06/21 12/06/21 History Methoxy Peg-Epoetin Beta [Mircera] 200 mcg IVPB Q14D 12/06/21 12/06/21 History NIFEdipine XL [Procardia XL] 60 mg PO BID 12/06/21 12/06/21 History buPROPion SR [Wellbutrin SR] 150 mg PO BID 12/06/21 12/06/21 History cloNIDine HCL [Catapres] 0.2 mg PO ONETIME PRN 12/06/21 12/06/21 History Allergies Allergy/AdvReac Type Severity Reaction Status Date / Time Fish Containing Products Allergy Rash/Hives Verified 12/06/21 16:08 [Fish] iodine Allergy Anaphylaxis Verified 12/06/21 16:08 Physical Exam Vitals: Vital Signs Temp Pulse Pulse Resp BP BP Pulse Ox 12/07/21 13:21 158/95 12/07/21 12:00 97.8 F 70 18 121/74 94 L 12/07/21 08:44 97.8 F 72 18 124/77 96 12/07/21 03:40 98.1 F 79 15 221/118 99 12/07/21 01:04 86 17 12/06/21 23:36 98.3 F 86 17 226/108 100 12/06/21 21:18 98.9 F 86 20 234/125 100 12/06/21 20:13 142/96 12/06/21 20:04 140/92 12/06/21 18:00 86 16 239/118 99 12/06/21 15:17 76 16 166/98 98 12/06/21 14:54 77 16 188/103 98 12/06/21 13:36 98.2 F 80 16 196/108 99 Intake and Output 12/06/21 12/07/21 12/07/21 22:59 06:59 14:59 Intake Total 118 200 240 Output Total 4500 3000 Balance -4382 200 -2760 Intake: Oral 118 200 240 Output: Hemodialysis 4500 3000 Other: Voiding Method Toilet Toilet Toilet Weight 49.895 kg 49.895 kg Awake, comfortable, not in any acute distress Alert oriented 3 Examination of the heart S1 and S2 Examination of the lungs bilateral breath sounds are heard Abdomen is soft nontender Examination of the lower extremities shows no evidence of edema Face appears puffy CHEMIST HELPER exam grossly intact Results - Lab Results Most recent lab results Calcium 8.3 mg/dL (8.4-10.2) L 12/06/21 13:08 Magnesium 2.2 mg/dL (1.6-2.3) 12/06/21 13:08 12/06/21 13:08 12/07/21 02:32 Assessment and Plan Assessment: 1. End-stage renal disease on hemodialysis on a Monday vent is a Monday schedule 2. Volume overload currently improved 3. Hypertension uncontrolled partly volume sensitive currently improved 4. CK D mineral bone disorder 5. Brittle diabetes mellitus Plan: Repeat hemodialysis in a.m. Patient can be discharged from nephrology standpoint post hemodialysis tomorrow. Advised again regarding fluid restriction
[2021-12-07 16:32] LABS: Glucose,Whole Blood 427 mg/dL (70-110)
--- NOTE | 2021-12-07 19:02 | HP ---
HISTORY AND PHYSICAL CHIEF COMPLAINT: Hypertensive emergency and renal failure. HISTORY OF PRESENT ILLNESS: This is another admission for this 30-year-old white female. She is in and out of the hospital all the time for uncontrolled hypertension, chest pain, stage 5 CKD and uncontrolled diabetes. She was just discharged about a week ago. She developed chest pain and shortness of breath and found her blood pressure to be elevated and came to the emergency room, where she had mild pulmonary edema and blood pressure was 240/134. She had been dialyzed that day. Her potassium was 7. REVIEW OF SYSTEMS: She denies any significant neurologic problems, cough, hemoptysis, abdominal pain, nausea, vomiting, etc. Past medical history, family history, and personal and social histories are all otherwise unremarkable and unchanged from her recent admitting and discharge summaries. PHYSICAL EXAMINATION: Blood pressure is 240/134 with a pulse of 96 and regular. Respirations were 38 and she is afebrile. In general she appeared to be pale, slightly dehydrated. She was awake and alert. She had no complaints. Head, ears, eyes, nose, mouth and throat were normal except for the eyes. Neck veins were not distended. Carotids were normal. Chest was clear. Cardiac exam demonstrated sinus tachycardia. The abdomen was flat, soft and nontender. Extremities were normal. Neurologically she was intact. She is admitted to the hospital with diagnoses: 1. Hypertensive emergency. 2. Congestive heart failure. 3. Pulmonary edema. 4. Uncontrolled type 1 insulin-dependent diabetes mellitus. 5. Amblyopia. 6. Stage 5 chronic kidney disease. 7. Hyperkalemia. PLAN: 1. Bedrest. 2. IV fluids. 3. Consult Nephrology. 4. Control hypertension and blood sugars. MMODL / IJN: [id number] /
--- NOTE | 2021-12-07 19:23 | PN ---
PROGRESS NOTE CHIEF COMPLAINT: Malignant hypertension and congestive heart failure. HISTORY OF PRESENT ILLNESS: This lady is doing better. Blood pressure has started to come down. She is having difficulty with leg cramps and restless legs syndrome. PHYSICAL EXAMINATION: Her chest is clear. Cardiac exam is normal. Abdomen is soft, nontender. Blood pressure is down with systolic around 150. IMPRESSION: 1. Hypertensive emergency. 2. Acute congestive heart failure. 3. Stage 5 chronic kidney disease. 4. Restless legs syndrome. 5. Amblyopia. PLAN: 1. Increase Requip. 2. Continue efforts to control hypertension. 3. She will probably be dialyzed again tomorrow. MMODL / IJN: [id number] /
[2021-12-07 20:12] LABS: Glucose,Whole Blood 235 mg/dL (70-110)
[2021-12-07] MEDS: INSULIN DETEMIR (LEVEMIR) 100 UNIT/ML SYR SQ SCH (21:19)
[2021-12-07] MEDS: ISOSORBIDE MONONITRATE ER 30 MG TAB.ER.24H PO SCH (21:20)
[2021-12-07 22:55] LABS: Glucose,Whole Blood 32 mg/dL (70-110)
[2021-12-07 23:27] LABS: Glucose,Whole Blood 52 mg/dL (70-110)
[2021-12-08 00:04] LABS: Glucose,Whole Blood 115 mg/dL (70-110)
[2021-12-08 02:18] LABS: Glucose,Whole Blood 330 mg/dL (70-110)
[2021-12-08 06:24] LABS: Glucose,Whole Blood 413 mg/dL (70-110)
[2021-12-08] MEDS: PANTOPRAZOLE 40 MG TABLET PO SCH (06:37)
[2021-12-08] MEDS: INSULIN ASPART (NovoLOG) 100 UNIT/ML VIAL SQ SCH ×4 (06:37→21:44)
[2021-12-08] MEDS: CALCIUM ACETATE 667 MG TAB PO SCH ×3 (06:37→16:58)
[2021-12-08] MEDS: LORazepam 0.5 MG TAB PO PRN ×2 (06:56→16:01)
[2021-12-08] MEDS: hydrALAZINE HCL 50 MG TAB PO SCH ×3 (08:26→21:09)
[2021-12-08] MEDS: carvediloL 12.5 MG TAB PO SCH ×2 (08:26→21:10)
[2021-12-08] MEDS: LOSARTAN 50 MG TAB PO SCH (08:26)
[2021-12-08] MEDS: cloNIDine HCL 0.2 MG TAB PO SCH ×3 (08:26→21:08)
[2021-12-08] MEDS: ASPIRIN 81 MG PO SCH (08:32)
[2021-12-08] MEDS: buPROPion SR 150 MG TABLET.ER PO SCH ×2 (08:32→21:08)
[2021-12-08] MEDS: ESCITALOPRAM 20 MG TAB PO SCH (08:32)
[2021-12-08] MEDS: ATORVASTATIN 40 MG TAB PO SCH (08:32)
[2021-12-08] MEDS: CYANOCOBALAMIN 500 MCG TAB PO SCH (08:32)
[2021-12-08] MEDS ORDERED: diphenhydrAMINE 50 MG/ML 1 ML VIAL IVP STA (09:51)
[2021-12-08] MEDS: diphenhydrAMINE 50 MG/ML 1 ML VIAL IVP PRN (09:51)
[2021-12-08 11:36] LABS: Glucose,Whole Blood 229 mg/dL (70-110)
[2021-12-08] MEDS: HYDROcodone/APAP 5-325MG 1 EACH TAB PO PRN ×2 (11:44→17:03)
--- NOTE | 2021-12-08 13:06 | CDI ---
Documentation Clarification Form Date: 12/08/2021 12:42:25 PM From: Jennifer Hutton RN, CCDS Admit Date: 12/06/2021 02:57:00 PM Patient Name: Patsy Pizano Visit Number: [id number] Discharge Date: ATTENTION: The Clinical Documentation Specialists (CDI) and [facility] Coding Staff appreciate your assistance in clarifying documentation. Please respond to the clarification below the line at the bottom and electronically sign. The CDI & [facility] Coding staff will review the response and follow-up if needed. Please note: Queries are made part of the Legal Health Record. If you have any questions, please contact the author of this message via ITS. Dr. Roque Buckner Your patient has the documented diagnosis of unspecified CHF. Additional information regarding the type of CHF is requested. History/Risk Factors: ESRD on HD, Hypertension, CVA, Diabetes Mellitus Type 1, Clinical Indicators: 30-year-old female with complaints of shortness of breath and volume overload. Blood pressure was elevated on admission. Patient had hemodialysis on 12/06 and 4 1/2 L of fluid removed. 12/07 Attending progress note has acute congestive heart failure 12/06 VS/Pulse OX: 240/125 78 16 98.2 99 % RA 12/06 BNP: 50992 12/06 Lungs crackles bilaterally 10/30/21 Echocardiogram Results: Left ventricular EF is estimated at 50-55 % Moderately increased left ventricular wall thickness. Mild mitral and tricuspid regurgitation. Small pericardial effusion 12/06 Chest X Ray: Diffuse interstitial pattern similar to prior exam. Suspect interstitial pneumonitis or pneumonia versus CHF Treatment: Cardiac/Telemetry Monitoring Hemodialysis per Nephrology orders Monitor VS, I/O Lipitor 40 MG PO Daily, Coreg 25 MG PO BID, Catapres 0.3 MG PO TID, Imdur 30 MG PO HS In your professional opinion, can you please clarify the acuity of CHF if known? [ ] Acute Diastolic Heart Failure (preserved EF) [ ] Chronic Diastolic Heart Failure (preserved EF) [ ] Acute on Chronic Diastolic Heart Failure (preserved EF) [ ] Other, please specify [ ] Unable to determine (Template Last Revised: June 2020) MTDD
--- NOTE | 2021-12-08 14:04 | P.PN ---
Subjective Patient is seen on hemodialysis. She is tolerating her treatment well. Complaining of itching Patient will have about 10.5 L taken off collectively after treatment today. Objective - Vital Signs Vital signs: Vital Signs Temp 98.0 F 12/08/21 11:43 Pulse 77 12/08/21 11:43 Resp 16 12/08/21 11:43 BP 160/93 12/08/21 13:04 Pulse Ox 98 12/08/21 11:43 FiO2 21 12/07/21 16:17 Intake & Output 12/07/21 12/08/21 12/08/21 18:59 06:59 18:59 Intake Total 960 237 958 Output Total 3000 3000 Balance -2039 -2041 Weight 49.895 kg Intake: Oral 960 237 958 Output: Hemodialysis 3000 3000 Other: Voiding Method Toilet Toilet Toilet # Voids 0 0 - Exam Awake, comfortable, not in any acute distress Examination of the heart S1 and S2 Examination lungs bilateral breath sounds are heard Abdomen is soft nontender Examination lower extremities shows no evidence of edema TIE BINDER exam grossly intact - Labs CBC & Chem 7: 12/06/21 13:08 12/07/21 02:32 Labs: Abnormal Lab Results - Last 24 Hours (Table) 12/07/21 12/07/21 12/07/21 Range/Units 16:31 20:10 22:48 POC Glucose (mg/dL) 427 H 235 H 32 L (70-110) mg/dL 12/07/21 12/08/21 12/08/21 Range/Units 23:25 00:03 01:57 POC Glucose (mg/dL) 52 L 115 H 330 H (70-110) mg/dL 12/08/21 12/08/21 Range/Units 05:39 11:35 POC Glucose (mg/dL) 413 H 229 H (70-110) mg/dL Assessment and Plan Assessment: 1. End-stage renal disease on hemodialysis on a Monday vent is a Monday schedule 2. Volume overload currently improved 3. Hypertension uncontrolled partly volume sensitive currently improved 4. CK D mineral bone disorder 5. Brittle diabetes mellitus Plan: Patient can be discharged after hemodialysis today Next hemodialysis as outpatient on Monday. Benadryl IV with hemodialysis.
[2021-12-08 16:38] LABS: Glucose,Whole Blood 462 mg/dL (70-110)
[2021-12-08 20:03] LABS: Glucose,Whole Blood >600 mg/dL (70-110)
--- NOTE | 2021-12-08 20:30 | PN ---
PROGRESS NOTE DATE OF SERVICE: 12/08/2021 CHIEF COMPLAINT: Hypertensive urgency, congestive heart failure, stage 5 CKD and type 1 diabetes. HISTORY OF PRESENT ILLNESS: This lady is somewhat anxious today, but she is doing fairly well. She was dialyzed. Blood sugars are fairly stable. Blood sugars are more stabilized as well. She has no complaints other than agitation. PHYSICAL EXAMINATION: Her vital signs are normal. The chest is clear. Cardiac exam is normal. Abdomen is soft, nontender. IMPRESSION: 1. Hypertensive urgency. 2. Congestive heart failure. 3. Uncontrolled type 1 insulin-dependent diabetes mellitus. 4. Stage 5 chronic kidney disease. 5. Anxiety. PLAN: She is doing well and she will probably be able to go home if she remains stable overnight. MMODL / IJN: [id number] /
[2021-12-08] MEDS: ISOSORBIDE MONONITRATE ER 30 MG TAB.ER.24H PO SCH (21:10)
[2021-12-08] MEDS ORDERED: INSULIN ASPART (NovoLOG) 100 UNIT/ML VIAL SQ ONE (21:18)
[2021-12-08] MEDS: INSULIN DETEMIR (LEVEMIR) 100 UNIT/ML SYR SQ SCH (21:43)
[2021-12-09 00:02] LABS: Glucose,Whole Blood 72 mg/dL (70-110)
[2021-12-09 00:18] VITALS: TEMP 97.6
[2021-12-09] MEDS: HYDROcodone/APAP 5-325MG 1 EACH TAB PO PRN ×2 (00:23→12:42)
[2021-12-09] MEDS: LORazepam 0.5 MG TAB PO PRN ×2 (00:24→09:05)
[2021-12-09] MEDS ORDERED: DEXTROSE 50% SYRINGE 50 ML IVP ONE (00:46)
[2021-12-09 00:47] LABS: Glucose,Whole Blood 40 mg/dL (70-110)
[2021-12-09 01:12] LABS: Glucose,Whole Blood 119 mg/dL (70-110)
[2021-12-09 02:05] LABS: Glucose,Whole Blood 150 mg/dL (70-110)
[2021-12-09 06:12] LABS: Glucose,Whole Blood 274 mg/dL (70-110)
[2021-12-09] MEDS: INSULIN ASPART (NovoLOG) 100 UNIT/ML VIAL SQ SCH ×2 (06:55→12:42)
[2021-12-09] MEDS: CALCIUM ACETATE 667 MG TAB PO SCH ×2 (06:55→12:42)
[2021-12-09] MEDS: PANTOPRAZOLE 40 MG TABLET PO SCH (06:55)
[2021-12-09] MEDS: ASPIRIN 81 MG PO SCH (09:05)
[2021-12-09] MEDS: carvediloL 12.5 MG TAB PO SCH (09:05)
[2021-12-09] MEDS: ATORVASTATIN 40 MG TAB PO SCH (09:05)
[2021-12-09] MEDS: cloNIDine HCL 0.2 MG TAB PO SCH (09:05)
[2021-12-09] MEDS: LOSARTAN 50 MG TAB PO SCH (09:05)
[2021-12-09] MEDS: ESCITALOPRAM 20 MG TAB PO SCH (09:05)
[2021-12-09] MEDS: hydrALAZINE HCL 50 MG TAB PO SCH (09:06)
[2021-12-09] MEDS: buPROPion SR 150 MG TABLET.ER PO SCH (09:06)
[2021-12-09] MEDS: CYANOCOBALAMIN 500 MCG TAB PO SCH (09:06)
[2021-12-09] MEDS ORDERED: hydrOXYzine HCL 25 MG TAB PO PRN (10:51)
[2021-12-09] MEDS ORDERED: LORazepam 1 MG TAB PO PRN (10:57)
[2021-12-09 11:59] LABS: Glucose,Whole Blood 420 mg/dL (70-110)
--- NOTE | 2021-12-09 12:25 | P.PN ---
Subjective Patient is seen on hemodialysis. She is tolerating her treatment well. Complaining of itching Patient has had about 10.5 L taken off since her admission Plans for discharge today Objective - Vital Signs Vital signs: Vital Signs Temp 97.6 F 12/09/21 08:55 Pulse 85 12/09/21 08:55 Resp 15 12/09/21 08:55 BP 156/83 12/09/21 08:55 Pulse Ox 96 12/09/21 08:55 FiO2 21 12/07/21 16:17 Intake & Output 12/08/21 12/09/21 12/09/21 18:59 06:59 18:59 Intake Total 958 260 0 Output Total 3000 1 Balance -2041 259 0 Intake: IV 20 Invasive Line 1 20 Oral 958 240 0 Output: Urine 1 Hemodialysis 3000 Other: Voiding Method Toilet Toilet # Voids 0 - Exam Awake, comfortable, not in any acute distress Abdomen is soft nontender Examination lower extremities shows no evidence of edema SOIL SAMPLER exam grossly intact - Labs CBC & Chem 7: 12/06/21 13:08 12/08/21 20:38 Labs: Abnormal Lab Results - Last 24 Hours (Table) 12/08/21 12/08/21 12/08/21 Range/Units 16:32 20:02 20:38 Glucose 624 H* (74-99) mg/dL POC Glucose (mg/dL) 462 H >600 H (70-110) mg/dL 12/09/21 12/09/21 12/09/21 Range/Units 00:44 01:11 02:03 Glucose (74-99) mg/dL POC Glucose (mg/dL) 40 L 119 H 150 H (70-110) mg/dL 12/09/21 12/09/21 Range/Units 06:11 11:57 Glucose (74-99) mg/dL POC Glucose (mg/dL) 274 H 420 H (70-110) mg/dL Assessment and Plan Assessment: 1. End-stage renal disease on hemodialysis on a Monday vent is a Monday schedule 2. Volume overload currently improved 3. Hypertension uncontrolled partly volume sensitive currently improved 4. CK D mineral bone disorder 5. Brittle diabetes mellitus Plan: Okay for discharge from nephrology standpoint. Hemodialysis in a.m. as out patient
[2021-12-09 12:42] VITALS: BP 146/74; PULSE 75; RESP 18
--- NOTE | 2021-12-09 20:49 | DS ---
DISCHARGE SUMMARY CHIEF COMPLAINT: Chest pain, hypertensive emergency, renal failure. HISTORY OF PRESENT ILLNESS AND PHYSICAL EXAMINATION: Details of this lady's history and physical can be found in the initial workup. LABORATORY STUDIES: While she is in the hospital she had laboratory studies, details of which can be found in the laboratory section of her chart. COURSE IN THE HOSPITAL: After admission she was placed on bedrest and started on intravenous fluids and dialyzed. Her blood pressure came down into a reasonable range and her chest pain improved. She had reasonably good control of her blood sugars. She was followed by Nephrology. She was doing well and it was felt that she could go home on December 09. She will receive her dialysis as an outpatient. FINAL DIAGNOSIS: 1. Hypertensive urgency. 2. Chest pain. 3. Stage 5 chronic kidney disease. 4. Uncontrolled type 1 insulin-dependent diabetes mellitus. 5. Amblyopia. 6. Anxiety. OPERATIONS: None. CONSULTATION: Nephrology. She is improved. MMODL / IJN: [id number] /
--- NOTE | 2021-12-13 20:18 | MISC ---
MISCELLANOUS REPORT QUERY: Acute on chronic heart failure. MMODL / IJN: [id number] /
--- NOTE | 2021-12-17 09:02 | CDI ---
Documentation Clarification Form Date: 12/08/2021 12:42:00 PM From: Jennifer Hutton RN, CCDS Phone: [phone] Admit Date: 12/06/2021 02:57:00 PM Patient Name: Patsy Pizano Visit Number: [id number] Discharge Date: 12/09/2021 03:31:00 PM ATTENTION: The Clinical Documentation Specialists (CDI) and [facility] Coding Staff appreciate your assistance in clarifying documentation. Please respond to the clarification below the line at the bottom and electronically sign. The CDI & [facility] Coding staff will review the response and follow-up if needed. Please note: Queries are made part of the Legal Health Record. If you have any questions, please contact the author of this message via ITS. Dr. Roque Buckner Your patient has the documented diagnosis of unspecified CHF. Additional information regarding the type of CHF is requested. History/Risk Factors: ESRD on HD, Hypertension, CVA, Diabetes Mellitus Type 1, Clinical Indicators: 30-year-old female with complaints of shortness of breath and volume overload. Blood pressure was elevated on admission. Patient had hemodialysis on 12/06 and 4 1/2 L of fluid removed. 12/07 Attending progress note has acute congestive heart failure 12/06 VS/Pulse OX: 240/125 78 16 98.2 99 % RA 12/06 BNP: 87903 12/06 Lungs crackles bilaterally 10/30/21 Echocardiogram Results: Left ventricular EF is estimated at 50-55 % Moderately increased left ventricular wall thickness. Mild mitral and tricuspid regurgitation. Small pericardial effusion 12/06 Chest X Ray: Diffuse interstitial pattern similar to prior exam. Suspect interstitial pneumonitis or pneumonia versus CHF Treatment: Cardiac/Telemetry Monitoring Hemodialysis per Nephrology orders Monitor VS, I/O Lipitor 40 MG PO Daily, Coreg 25 MG PO BID, Catapres 0.3 MG PO TID, Imdur 30 MG PO HS In your professional opinion, can you please clarify the type of CHF if known? [ ] Acute Diastolic Heart Failure (preserved EF) [ ] Acute on Chronic Diastolic Heart Failure (preserved EF) [ ] Other, please specify [ ] Unable to determine (Template Last Revised: June 2020) MTDD
== END 2021-12-09 15:31 | disposition home or self-care (01) | DRG 304 ==
LOC: EC 12:11 → 3SCARD 14:57
PROVIDERS: ADMIT Family Medicine; ATTEND Family Medicine
PROC: 5A1D70Z Performance of Urinary Filtration, Intermittent, Less than 6 Hours Per Day (ICD-10-PCS; principal; 2021-12-06)
DX: I16.1 Hypertensive emergency (principal); I50.33 Acute on chronic diastolic (congestive) heart failure; N18.6 End stage renal disease; I16.0 Hypertensive urgency; I13.2 Hypertensive heart and chronic kidney disease with heart failure and with stage 5 chronic kidney disease, or end stage renal disease; E10.22 Type 1 diabetes mellitus with diabetic chronic kidney disease; E10.42 Type 1 diabetes mellitus with diabetic polyneuropathy; E10.319 Type 1 diabetes mellitus with unspecified diabetic retinopathy without macular edema; E10.65 Type 1 diabetes mellitus with hyperglycemia; E87.5 Hyperkalemia; F41.9 Anxiety disorder, unspecified; G25.81 Restless legs syndrome; H53.009 Unspecified amblyopia, unspecified eye; H54.8 Legal blindness, as defined in USA; L29.9 Pruritus, unspecified; M89.9 Disorder of bone, unspecified; Z79.4 Long term (current) use of insulin; Z79.82 Long term (current) use of aspirin; Z79.899 Other long term (current) drug therapy; Z80.8 Family history of malignant neoplasm of other organs or systems; Z82.0 Family history of epilepsy and other diseases of the nervous system; Z82.49 Family history of ischemic heart disease and other diseases of the circulatory system; Z86.73 Personal history of transient ischemic attack (TIA), and cerebral infarction without residual deficits; Z99.2 Dependence on renal dialysis; Z91.041 Radiographic dye allergy status; Z91.013 Allergy to seafood; Z98.84 Bariatric surgery status; Z90.49 Acquired absence of other specified parts of digestive tract
CPT/HCPCS: 36415; 71046; 80053; 82947; 83735; 83880; 84132; 84484; 85025; 85610; 85730; 86706; 87340; 90935; 93005; 94760; 96374; 96375; 99291

== ENCOUNTER 2021-12-21 17:53 | Inpatient (IN) | payer MEDICARE, OTHER ==
[2021-12-21 18:59] LABS: Anisocytosis Slight; Basophils # (A) 0.1 k/uL (0-0.2); Basophils % (A) 1 %; Eosinophils # (A) 0.2 k/uL (0-0.7); Eosinophils % (A) 3 %; HCT 41.9 % (34.0-46.0); HGB 12.9 gm/dL (11.4-16.0); Hypochromasia Slight; Lymphocytes # (A) 0.7 k/uL (1.0-4.8); Lymphocytes % (A) 10 %; MCH 28.6 pg (25.0-35.0); MCHC 30.9 g/dL (31.0-37.0); MCV 92.5 fL (80.0-100.0); Monocytes # (A) 0.3 k/uL (0-1.0); Monocytes % (A) 5 %; Neutrophils # (A) 5.8 k/uL (1.3-7.7); Neutrophils % (A) 82 %; Platelet Count 279 k/uL (150-450); RBC 4.53 m/uL (3.80-5.40); RDW 17.6 % (11.5-15.5); WBC 7.1 k/uL (3.8-10.6)
[2021-12-21 19:08] LABS: Albumin 4.4 g/dL (3.5-5.0); INR 0.9 (<1.2); Magnesium 2.1 mg/dL (1.6-2.3); Partial Thromboplastin Time 24.3 sec (22.0-30.0); Potassium 5.3 mmol/L (3.5-5.1); Prothrombin Time 10.4 sec (9.0-12.0); Total Bilirubin 0.6 mg/dL (0.2-1.3); Total Protein 7.1 g/dL (6.3-8.2)
--- NOTE | 2021-12-21 19:21 | XR ---
EXAMINATION TYPE: XR chest 2V DATE OF EXAM: 12/21/2021 7:12 PM COMPARISON: Chest radiographs from 12/06/2021, 10/29/2021. TECHNIQUE: XR chest 2V Frontal and lateral views of the chest. CLINICAL INDICATION:Female, 30 years old with history of Chest Pain; FINDINGS: Lungs/Pleura: Diffuse reticular/interstitial opacities not significantly changed from immediate prior 12/06/2021 however appears improved from 10/29/2021 There is no evidence of pleural effusion, focal con solidation, or pneumothorax. Pulmonary vascularity: Unremarkable. Heart/mediastinum: Cardiomediastinal silhouette is unremarkable. Musculoskeletal: No acute osseous pathology. IMPRESSION: Similar reticular opacities throughout the lungs when compared to most recent prior 12/06/2021 and imp roved from 10/29/2021.
--- NOTE | 2021-12-21 20:00 | ED ---
Chest Pain HPI - General Chief Complaint: Chest Pain Stated Complaint: High BP Time Seen by Provider: 12/21/21 20:00 Source: patient Mode of arrival: wheelchair Limitations: no limitations - History of Present Illness Initial Comments: 30-year-old female well-known to the emergency department presents for chest pain and high blood pressure. She is end-stage renal disease on hemodialysis and goes Monday. States that she went yesterday and he took off 4 L. This morning the patient awoke and she was having some chest discomfort and shortness of breath. She took her blood pressure and was notably high at home. She states she took an extra dose of her nifedipine 60 mg, an extra 0.3 mg of clonidine and extra 50 mg of hydralazine before coming in. Patient continued to have high blood pressure therefore came into the emergency room for evaluation. She denies any missed doses of her blood pressure medications or dialysis sessions. Follows with Dr. Chase. States that they did increase her dry weight. No other alleviating, precipitating or modifying factors - Related Data Home Medications Medication Instructions Recorded Confirmed Ergocalciferol (Vitamin D2) 1,250 mcg PO Q30D 04/03/21 12/21/21 [Drisdol (50,000 Iu)] Isosorbide Mononitrate ER [Imdur] 30 mg PO HS 04/03/21 12/21/21 carvediloL [Coreg] 25 mg PO BID 04/03/21 12/21/21 Escitalopram [Lexapro] 20 mg PO DAILY 04/17/21 12/21/21 cloNIDine HCL [Catapres] 0.3 mg PO TID PRN 11/21/21 12/21/21 Albuterol Inhaler [Ventolin Hfa 2 puff INHALATION RT-QID PRN 12/06/21 12/21/21 Inhaler] Aspirin 81 mg PO DAILY 12/06/21 12/21/21 Methoxy Peg-Epoetin Beta [Mircera] 200 mcg IVPB Q14D 12/06/21 12/21/21 NIFEdipine XL [Procardia XL] 120 mg PO DAILY 12/06/21 12/21/21 cloNIDine HCL [Catapres] 0.1 mg PO TID 12/06/21 12/21/21 Insulin Aspart [NovoLOG Flexpen] See Protocol SQ TID-W/MEALS 12/21/21 12/21/21 Insulin Detemir (Levemir) [Levemir] 13 unit SQ HS 12/21/21 12/21/21 Melatonin [Melatonin Dissolving 10 mg PO HS 12/21/21 12/21/21 Tablet] hydrALAZINE HCL [Apresoline] 100 mg PO TID 12/21/21 12/21/21 rOPINIRole HCL [Requip] 1 mg PO HS 12/21/21 12/21/21 Previous Rx's Medication Instructions Recorded Acetaminophen Tab [Tylenol] 650 mg PO Q6HR PRN #30 tab 04/09/21 Glucagon Emergency Kit 1 mg IM ONCE PRN #1 kit 06/15/21 Cyanocobalamin [Vitamin B-12] 1,000 mcg PO DAILY #60 tab 09/06/21 Atorvastatin [Lipitor] 40 mg PO DAILY 30 Days #30 tab 10/13/21 Calcium Acetate [PhosLo] 667 mg PO TID-W/MEALS 30 Days #90 10/13/21 tab Pantoprazole Sodium [Protonix] 20 mg PO BID #30 tab 10/15/21 LORazepam [Ativan] 1 mg PO TID PRN #90 tab 12/09/21 Losartan [Cozaar] 100 mg PO DAILY #90 tab 12/09/21 hydrOXYzine HCL [Atarax] 25 mg PO TID PRN #90 tab 12/09/21 Allergies Allergy/AdvReac Type Severity Reaction Status Date / Time Fish Containing Products Allergy Rash/Hives Verified 12/21/21 21:40 [Fish] iodine Allergy Anaphylaxis Verified 12/21/21 21:40 Review of Systems ROS Statement: Those systems with pertinent positive or pertinent negative responses have been documented in the HPI. ROS Other: All systems not noted in ROS Statement are negative. EKG Findings - EKG Comments: EKG Findings:: EKG demonstrates sinus rhythm with a rate of 84. NC interval 163. QRS 84. QTC 413. No acute ST segment elevations or depressions concerning for ischemic changes Past Medical History Past Medical History: CVA/TIA, Diabetes Mellitus, Dialysis, Eye Disorder, Hypertension, Renal Disease Additional Past Medical History / Comment(s): ESRD with hemodialysis M/W/F, IDDM type 1, DKA, neuropathy bilateral legs/feet, diabetic retinopathy/legally blind, RLS, gastritis, severe hypokalemia, fluid retention in abdomin/legs. History of Any Multi-Drug Resistant Organisms: None Reported Past Surgical History: Appendectomy, Section, Cholecystectomy Additional Past Surgical History / Comment(s): fistula left arm Past Anesthesia/Blood Transfusion Reactions: No Reported Reaction Past Psychological History: Anxiety, Depression Smoking Status: Never smoker Past Alcohol Use History: None Reported Past Drug Use History: None Reported - Past Family History Mother Family Medical History: Cancer, Hypertension Additional Family Medical History / Comment(s): Thyroid cancer, bipolar Father Family Medical History: Seizure Disorder Additional Family Medical History / Comment(s): Epilepsy General Exam Limitations: no limitations General appearance: alert, in no apparent distress Head exam: Present: atraumatic, normocephalic, normal inspection Eye exam: Present: normal appearance, PERRL, EOMI. Absent: scleral icterus, conjunctival injection, periorbital swelling ENT exam: Present: normal exam, mucous membranes moist Neck exam: Present: normal inspection. Absent: tenderness, meningismus, lymphadenopathy Respiratory exam: Present: normal lung sounds bilaterally. Absent: respiratory distress, wheezes, rales, rhonchi, stridor Cardiovascular Exam: Present: regular rate, normal rhythm, normal heart sounds. Absent: systolic murmur, diastolic murmur, rubs, gallop, clicks GI/Abdominal exam: Present: soft, normal bowel sounds. Absent: distended, tenderness, guarding, rebound, rigid Extremities exam: Present: normal inspection, full ROM, normal capillary refill. Absent: tenderness, pedal edema, joint swelling, calf tenderness Back exam: Present: normal inspection Neurological exam: Present: alert, oriented X3, CN II-XII intact Psychiatric exam: Present: normal affect, normal mood Skin exam: Present: warm, dry, intact, normal color. Absent: rash Course Vital Signs 12/21/21 12/21/21 12/21/21 18:33 21:00 21:20 Temperature 98.7 F Pulse Rate 85 86 86 Pulse Rate [ Distribution Clerk ] Respiratory 18 30 H 16 Rate Blood Pressure 230/111 227/117 206/105 O2 Sat by Pulse 99 98 93 L Oximetry 12/21/21 12/21/21 21:40 21:46 Temperature Pulse Rate 87 Pulse Rate [ 88 Distribution Clerk ] Respiratory 16 Rate Blood Pressure 198/97 O2 Sat by Pulse 89 L Oximetry Chest Pain MDM - MDM Upon arrival patient was placed in room 1. There are history and physical exam is performed. Laboratory studies reviewed. Potassium 5.3. Creatinine 6.3. Patient does have significant elevated blood pressure. She is given 1 mg of Ativan and 20 mg of hydralazine. Called and spoke with Dr. Buckner who agreed to admit the patient for dialysis. Patient taken 4 and stable condition Disposition Clinical Impression: Hypertensive emergency, Chest pain, ESRD (end stage renal disease) on dialysis Disposition: ADMITTED IP TO THIS HOSP Condition: Stable Is patient prescribed a controlled substance at d/c from ED?: No Time of Disposition: 20:42 Decision to Admit Reason: Admit from EC Decision Date: 12/21/21 Decision Time: 20:42
[2021-12-21] MEDS ORDERED: LORazepam 2 MG/ML INJ IV STA (20:38)
[2021-12-21] MEDS ORDERED: hydrALAZINE HCL 20 MG/ML 1 ML VIAL IVP STA (20:41)
[2021-12-21] MEDS ORDERED: NALOXONE 0.4 MG/ML 1 ML VIAL IV PRN (20:42)
[2021-12-21] MEDS ORDERED: ALBUTEROL NEBULIZED 2.5 MG/3 ML INHALATION PRN (22:34)
[2021-12-21] MEDS ORDERED: cloNIDine HCL 0.2 MG TAB PO PRN (22:34)
[2021-12-21] MEDS ORDERED: hydrOXYzine HCL 25 MG TAB PO PRN (22:34)
[2021-12-21 22:59] LABS: Glucose,Whole Blood 290 mg/dL (70-110)
[2021-12-21] MEDS: PANTOPRAZOLE 40 MG TABLET PO SCH (23:13)
[2021-12-21] MEDS: INSULIN DETEMIR (LEVEMIR) 100 UNIT/ML SYR SQ SCH (23:13)
[2021-12-21] MEDS: ISOSORBIDE MONONITRATE ER 30 MG TAB.ER.24H PO SCH (23:13)
[2021-12-22] MEDS: ACETAMINOPHEN TAB 325 MG TAB PO PRN ×3 (03:57→22:43)
[2021-12-22] MEDS: LORazepam 1 MG TAB PO PRN ×3 (04:54→21:33)
[2021-12-22 06:15] LABS: Glucose,Whole Blood 35 mg/dL (70-110)
[2021-12-22 06:29] LABS: Glucose,Whole Blood 73 mg/dL (70-110)
[2021-12-22] MEDS: PANTOPRAZOLE 40 MG TABLET PO SCH (06:46)
[2021-12-22] MEDS: CALCIUM ACETATE 667 MG TAB PO SCH ×3 (06:46→17:20)
[2021-12-22] MEDS: hydrALAZINE HCL 50 MG TAB PO SCH ×3 (08:30→21:32)
[2021-12-22] MEDS: ASPIRIN 81 MG PO SCH (08:30)
[2021-12-22] MEDS: cloNIDine HCL 0.2 MG TAB PO SCH ×4 (08:31→21:32)
[2021-12-22] MEDS: LOSARTAN 50 MG TAB PO SCH ×2 (08:31→15:11)
[2021-12-22] MEDS: ATORVASTATIN 40 MG TAB PO SCH (08:31)
[2021-12-22] MEDS: ESCITALOPRAM 20 MG TAB PO SCH (08:31)
[2021-12-22] MEDS: carvediloL 12.5 MG TAB PO SCH ×2 (08:31→21:33)
[2021-12-22 08:44] LABS: Anisocytosis Slight; Basophils # (A) 0.1 k/uL (0-0.2); Basophils % (A) 1 %; Eosinophils # (A) 0.2 k/uL (0-0.7); Eosinophils % (A) 5 %; HCT 38.1 % (34.0-46.0); Hypochromasia Slight; Lymphocytes # (A) 0.7 k/uL (1.0-4.8); Lymphocytes % (A) 14 %; MCH 29.1 pg (25.0-35.0); MCHC 31.4 g/dL (31.0-37.0); MCV 92.7 fL (80.0-100.0); Mean Platelet Volume 8.3; Monocytes # (A) 0.2 k/uL (0-1.0); Monocytes % (A) 5 %; Neutrophils # (A) 3.8 k/uL (1.3-7.7); Neutrophils % (A) 75 %; Platelet Count 264 k/uL (150-450); RBC 4.12 m/uL (3.80-5.40); RDW 17.8 % (11.5-15.5)
[2021-12-22 08:58] LABS: Calcium 9.2 mg/dL (8.4-10.2)
[2021-12-22] MEDS ORDERED: cloNIDine HCL 0.1 MG TAB PO SCH (09:00)
[2021-12-22] MEDS ORDERED: diphenhydrAMINE 50 MG/ML 1 ML VIAL IVP PRN (11:00)
--- NOTE | 2021-12-22 11:00 | P.NPCON ---
History of Present Illness - Reason for Consult end stage renal disease - History of Present Illness Patient is a 30-year-old female with end-stage renal disease on hemodialysis on a Monday schedule Patient is admitted to the hospital again with symptoms of shortness of breath. She has had large fluid gains. Blood pressure was also significantly elevated at 226/116. Patient states that she has been taking her blood pressure medications. Patient usually has significantly elevated blood pressures when she has underlying volume overload. No complaints of fever chills nausea vomiting abdominal pain or diarrhea. No cough. Review of Systems As per HPI Past Medical History Past Medical History: CVA/TIA, Diabetes Mellitus, Dialysis, Eye Disorder, Hypertension, Renal Disease Additional Past Medical History / Comment(s): ESRD with hemodialysis M/W/F, IDDM type 1, DKA, neuropathy bilateral legs/feet, diabetic retinopathy/legally blind, RLS, gastritis, severe hypokalemia, fluid retention in abdomin/legs. History of Any Multi-Drug Resistant Organisms: None Reported Past Surgical History: Appendectomy, Section, Cholecystectomy Additional Past Surgical History / Comment(s): fistula left arm Past Anesthesia/Blood Transfusion Reactions: No Reported Reaction Past Psychological History: Anxiety, Depression Smoking Status: Never smoker Past Alcohol Use History: None Reported Past Drug Use History: None Reported - Past Family History Mother Family Medical History: Cancer, Hypertension Additional Family Medical History / Comment(s): Thyroid cancer, bipolar Father Family Medical History: Seizure Disorder Additional Family Medical History / Comment(s): Epilepsy Medications and Allergies Home Medications Medication Instructions Recorded Confirmed Type Ergocalciferol (Vitamin D2) 1,250 mcg PO Q30D 04/03/21 12/21/21 History [Drisdol (50,000 Iu)] Isosorbide Mononitrate ER [Imdur] 30 mg PO HS 04/03/21 12/21/21 History carvediloL [Coreg] 25 mg PO BID 04/03/21 12/21/21 History Acetaminophen Tab [Tylenol] 650 mg PO Q6HR PRN #30 tab 04/09/21 12/21/21 Rx Escitalopram [Lexapro] 20 mg PO DAILY 04/17/21 12/21/21 History Glucagon Emergency Kit 1 mg IM ONCE PRN #1 kit 06/15/21 12/21/21 Rx Cyanocobalamin [Vitamin B-12] 1,000 mcg PO DAILY #60 tab 09/06/21 12/21/21 Rx Atorvastatin [Lipitor] 40 mg PO DAILY 30 Days #30 tab 10/13/21 12/21/21 Rx Calcium Acetate [PhosLo] 667 mg PO TID-W/MEALS 30 Days #90 10/13/21 12/21/21 Rx tab Pantoprazole Sodium [Protonix] 20 mg PO BID #30 tab 10/15/21 12/21/21 Rx cloNIDine HCL [Catapres] 0.3 mg PO TID PRN 11/21/21 12/21/21 History Albuterol Inhaler [Ventolin Hfa 2 puff INHALATION RT-QID PRN 12/06/21 12/21/21 History Inhaler] Aspirin 81 mg PO DAILY 12/06/21 12/21/21 History Methoxy Peg-Epoetin Beta [Mircera] 200 mcg IVPB Q14D 12/06/21 12/21/21 History NIFEdipine XL [Procardia XL] 120 mg PO DAILY 12/06/21 12/21/21 History cloNIDine HCL [Catapres] 0.1 mg PO TID 12/06/21 12/21/21 History LORazepam [Ativan] 1 mg PO TID PRN #90 tab 12/09/21 12/21/21 Rx Losartan [Cozaar] 100 mg PO DAILY #90 tab 12/09/21 12/21/21 Rx hydrOXYzine HCL [Atarax] 25 mg PO TID PRN #90 tab 12/09/21 12/21/21 Rx Insulin Aspart [NovoLOG Flexpen] See Protocol SQ TID-W/MEALS 12/21/21 12/21/21 History Insulin Detemir (Levemir) [Levemir] 13 unit SQ HS 12/21/21 12/21/21 History Melatonin [Melatonin Dissolving 10 mg PO HS 12/21/21 12/21/21 History Tablet] hydrALAZINE HCL [Apresoline] 100 mg PO TID 12/21/21 12/21/21 History rOPINIRole HCL [Requip] 1 mg PO HS 12/21/21 12/21/21 History Allergies Allergy/AdvReac Type Severity Reaction Status Date / Time Fish Containing Products Allergy Rash/Hives Verified 07/26/22 21:40 [Fish] iodine Allergy Anaphylaxis Verified 12/21/21 21:40 Physical Exam Vitals: Vital Signs Temp Pulse Pulse Pulse Resp BP BP 12/22/21 05:22 78 16 208/96 12/22/21 04:45 74 16 219/105 12/22/21 03:55 97.8 F 81 16 226/116 12/22/21 00:10 98.1 F 86 16 198/91 12/21/21 22:24 97.7 F 87 16 204/97 12/21/21 21:46 88 12/21/21 21:40 87 16 198/97 12/21/21 21:20 86 16 206/105 12/21/21 21:00 86 30 H 227/117 12/21/21 18:33 98.7 F 85 18 230/111 Pulse Ox 12/22/21 05:22 94 L 12/22/21 04:45 97 12/22/21 03:55 98 12/22/21 00:10 94 L 12/21/21 22:24 92 L 12/21/21 21:46 12/21/21 21:40 89 L 12/21/21 21:20 93 L 12/21/21 21:00 98 12/21/21 18:33 99 Intake and Output 12/21/21 12/22/21 12/22/21 22:59 06:59 14:59 Intake Total 240 Balance 240 Intake: Oral 240 Other: Voiding Method Toilet # Voids 1 Weight 49.895 kg Awake, comfortable, not in any acute distress Examination of the heart S1 and S2 Examination of the lungs bilateral breath sounds are heard Abdomen is soft nontender Examination of the lower extremities shows no significant edema Patient's face is puffy [employer]ODUCTION STAGE [employer]GER exam grossly intact Results - Lab Results Most recent lab results Calcium 9.2 mg/dL (8.4-10.2) 12/22/21 08:20 Magnesium 2.1 mg/dL (1.6-2.3) 12/21/21 18:47 12/22/21 08:20 12/22/21 08:20 Assessment and Plan Assessment: 1. End-stage renal disease on hemodialysis on a Monday schedule 2. Hypertensive emergency 3. Volume overload 4. CK D mineral bone disorder Plan: Hemodialysis today with goal UF about 4 L and repeat again in a.m. Expect improvement in blood pressure with volume control Patient is again advised regarding his fluid restriction.
[2021-12-22 11:29] LABS: Glucose,Whole Blood 201 mg/dL (70-110)
[2021-12-22] MEDS ORDERED: LIDOCAINE-PRILOCAINE 2.5-2.5% CREAM 5 GM TUBE TOPICAL STA (11:34)
[2021-12-22 13:31] VITALS: BMI 18.8
[2021-12-22 16:42] LABS: Glucose,Whole Blood 201 mg/dL (70-110)
[2021-12-22] MEDS: INSULIN ASPART (NovoLOG) 100 UNIT/ML VIAL SQ SCH ×2 (17:20→21:33)
[2021-12-22 20:47] LABS: Glucose,Whole Blood 371 mg/dL (70-110)
[2021-12-22] MEDS: ISOSORBIDE MONONITRATE ER 30 MG TAB.ER.24H PO SCH (21:32)
[2021-12-22] MEDS: INSULIN DETEMIR (LEVEMIR) 100 UNIT/ML SYR SQ SCH (21:33)
[2021-12-22] MEDS: PRAZOSIN 1 MG CAP PO SCH (22:46)
[2021-12-23 05:50] LABS: Anisocytosis Slight; HCT 39.1 % (34.0-46.0); HGB 12.5 gm/dL (11.4-16.0); Hypochromasia Slight; MCH 29.6 pg (25.0-35.0); MCV 92.6 fL (80.0-100.0); Mean Platelet Volume 8.2; Platelet Count 271 k/uL (150-450); Poikilocytosis Slight; RBC 4.22 m/uL (3.80-5.40); RDW 18.3 % (11.5-15.5); WBC 4.3 k/uL (3.8-10.6)
[2021-12-23 06:05] LABS: Calcium 9.5 mg/dL (8.4-10.2); Potassium 5.2 mmol/L (3.5-5.1)
[2021-12-23 06:22] LABS: Glucose,Whole Blood 188 mg/dL (70-110)
[2021-12-23] MEDS: PANTOPRAZOLE 40 MG TABLET PO SCH (06:28)
[2021-12-23] MEDS: CALCIUM ACETATE 667 MG TAB PO SCH ×3 (06:28→16:40)
[2021-12-23] MEDS: INSULIN ASPART (NovoLOG) 100 UNIT/ML VIAL SQ SCH ×4 (06:28→18:03)
[2021-12-23] MEDS: LORazepam 1 MG TAB PO PRN ×2 (09:11→16:40)
[2021-12-23] MEDS ORDERED: diphenhydrAMINE 50 MG/ML 1 ML VIAL IVP STA (09:20)
--- NOTE | 2021-12-23 09:46 | P.PN ---
Subjective Patient is seen in follow-up for end-stage renal disease. She is maintained on hemodialysis on Monday and Monday schedule. Tolerated 3.8 L ultrafiltration yesterday. Blood pressure fairly stable this morning. Denies chest pain or shortness of breath. Vital signs are stable. General: Awake. No acute distress. HEENT: Head exam is unremarkable. LUNGS: Breath sounds decreased. HEART: Rate and Rhythm are regular. ABDOMEN: Soft, no distention. EXTREMITITES: No edema. Objective - Vital Signs Vital signs: Vital Signs Temp 98.4 F 12/23/21 08:00 Pulse 84 12/23/21 08:00 Resp 18 12/23/21 08:00 BP 156/84 12/23/21 08:00 Pulse Ox 98 12/23/21 08:00 FiO2 Intake & Output 12/22/21 12/23/21 12/23/21 18:59 06:59 18:59 Intake Total 600 1400 0 Output Total 0 4142 Balance 600 -2742 0 Weight 49.895 kg Intake: IV 20 Invasive Line 1 20 Oral 600 1080 0 Hemodialysis 300 Output: Urine 0 Hemodialysis 4142 Other: Voiding Method Toilet - Labs CBC & Chem 7: 12/23/21 05:23 12/23/21 05:23 Labs: Abnormal Lab Results - Last 24 Hours (Table) 12/22/21 12/22/21 12/22/21 Range/Units 11:27 16:41 20:46 RDW (11.5-15.5) % Sodium (137-145) mmol/L Potassium (3.5-5.1) mmol/L Chloride (98-107) mmol/L BUN (7-17) mg/dL Creatinine (0.52-1.04) mg/dL Glucose (74-99) mg/dL POC Glucose (mg/dL) 201 H 201 H 371 H (70-110) mg/dL 12/23/21 12/23/21 12/23/21 Range/Units 05:23 05:23 06:21 RDW 18.3 H (11.5-15.5) % Sodium 135 L (137-145) mmol/L Potassium 5.2 H (3.5-5.1) mmol/L Chloride 95 L (98-107) mmol/L BUN 28 H (7-17) mg/dL Creatinine 5.37 H (0.52-1.04) mg/dL Glucose 248 H (74-99) mg/dL POC Glucose (mg/dL) 188 H (70-110) mg/dL Assessment and Plan Plan: Assessment: 1. End-stage renal disease maintained on hemodialysis on Monday schedule. Left extremity AV fistula. 2. Volume overload. 3. Hypertension with chronic kidney disease. Partially due to hypervolemia. 4. Diabetes mellitus. 5. 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 6. Pericardial effusion. Antihistone antibodies positive in the past. 7. History of hyperkalemia secondary to chronic kidney disease and hyperglycemia. Plan: Hemodialysis today and again tomorrow. Stop losartan and hydralazine. Hold clonidine for systolic blood pressure less than 120. Low-salt diet and 1500 mL fluid restriction per day has been discussed with patient multiple times. Compliance with dialysis treatments and medications has been discussed with the patient multiple times.
[2021-12-23] MEDS: ACETAMINOPHEN TAB 325 MG TAB PO PRN (10:39)
[2021-12-23 11:52] LABS: Glucose,Whole Blood 189 mg/dL (70-110)
[2021-12-23 14:54] VITALS: TEMP 96.9
[2021-12-23] MEDS: cloNIDine HCL 0.2 MG TAB PO SCH ×2 (14:56→16:39)
[2021-12-23 16:36] LABS: Glucose,Whole Blood 485 mg/dL (70-110)
[2021-12-23] MEDS: PRAZOSIN 1 MG CAP PO SCH (16:39)
[2021-12-23] MEDS: ATORVASTATIN 40 MG TAB PO SCH (16:40)
[2021-12-23] MEDS: carvediloL 12.5 MG TAB PO SCH (16:40)
[2021-12-23] MEDS: ASPIRIN 81 MG PO SCH (16:40)
[2021-12-23] MEDS: ESCITALOPRAM 20 MG TAB PO SCH (16:40)
[2021-12-23] MEDS: LOSARTAN 50 MG TAB PO SCH (16:46)
[2021-12-23] MEDS: hydrALAZINE HCL 50 MG TAB PO SCH (16:46)
[2021-12-23 18:25] VITALS: BP 186/94; PULSE 81; RESP 18
--- NOTE | 2021-12-24 12:02 | HP ---
HISTORY AND PHYSICAL CHIEF COMPLAINT: Headache, shortness of breath and hypertensive urgency. HISTORY OF PRESENT ILLNESS: This is another admission for this 30-year-old white female who is in and out of the hospital repeatedly for stage 5 CKD, uncontrolled hypertension and diabetes. She presents again with headache and blood pressure with a systolic over 220. REVIEW OF SYSTEMS: She has a headache, but she is not having any focal neurologic deficits, chest pain, nausea, vomiting, etc. She was dialyzed yesterday and suggested that they take off more fluid, which they did not do. Past medical history, family history, and personal and social histories are all otherwise unremarkable and noncontributory or unchanged. PHYSICAL EXAMINATION: Blood pressure is 235/125. Pulse is 83 and regular. Respirations are 36. Head, ears, eyes, nose, mouth and throat are normal except that she is blind. Neck veins are not distended. Chest is clear. Cardiac exam demonstrates sinus rhythm. Abdomen is soft, nontender. Extremities are normal. IMPRESSION: 1. Hypertensive urgency. 2. Headache. 3. Uncontrolled hypertension. 4. Stage 5 chronic kidney disease. 5. Uncontrolled diabetes. PLAN: 1. Bedrest. 2. IV fluids. 3. Resume antihypertensive program with additions. 4. Consult Nephrology for dialysis. MMODL / IJN: [id number] /
--- NOTE | 2021-12-24 13:03 | PN ---
PROGRESS NOTE DATE OF SERVICE: 12/22/2021 CHIEF COMPLAINT: Malignant hypertension, renal failure, and headache. HISTORY OF PRESENT ILLNESS: This lady still has a headache and her blood pressure is still high. She is to be dialyzed today. PHYSICAL EXAMINATION: Chest is clear. Cardiac exam demonstrates sinus rhythm. Abdomen is soft. Neck: Supple. IMPRESSION: 1. Hypertensive urgency. 2. Headache. 3. Stage 5 CKD. 4. Uncontrolled diabetes. PLAN: Continue efforts to bring her blood pressure under control, but dialysis later today should help. MMODL / IJN: [id number] /
--- NOTE | 2021-12-24 14:00 | PN ---
PROGRESS NOTE DATE OF SERVICE: 12/23/2021 CHIEF COMPLAINT: Hypertensive urgency. HISTORY OF PRESENT ILLNESS: This lady is doing better. Headache is gone. She is feeling much better and would like to go home. She is to be dialyzed today. PHYSICAL EXAMINATION: Chest is clear. Cardiac exam is normal. Abdomen is soft, nontender. IMPRESSION: 1. Hypertensive emergency. 2. Headache. 3. Stage 5 chronic kidney disease. 4. Uncontrolled insulin-dependent type 1 diabetes mellitus. 5. Amblyopia. PLAN: Possibly home today after diuresis. MMODL / IJN: [id number] /
== END 2021-12-23 18:31 | disposition home or self-care (01) | DRG 304 ==
LOC: EC 17:53 → 3SCARD 20:42
PROVIDERS: ADMIT Family Medicine; ATTEND Family Medicine
PROC: 5A1D70Z Performance of Urinary Filtration, Intermittent, Less than 6 Hours Per Day (ICD-10-PCS; principal; 2021-12-22)
DX: I16.1 Hypertensive emergency (principal); N18.6 End stage renal disease; I31.3 Pericardial effusion (noninflammatory); I12.0 Hypertensive chronic kidney disease with stage 5 chronic kidney disease or end stage renal disease; E10.22 Type 1 diabetes mellitus with diabetic chronic kidney disease; E10.40 Type 1 diabetes mellitus with diabetic neuropathy, unspecified; E10.319 Type 1 diabetes mellitus with unspecified diabetic retinopathy without macular edema; E10.65 Type 1 diabetes mellitus with hyperglycemia; H54.8 Legal blindness, as defined in USA; G25.81 Restless legs syndrome; F41.9 Anxiety disorder, unspecified; F32.A Depression, unspecified; M89.9 Disorder of bone, unspecified; E87.70 Fluid overload, unspecified; H53.009 Unspecified amblyopia, unspecified eye; Z91.041 Radiographic dye allergy status; Z91.013 Allergy to seafood; Z99.2 Dependence on renal dialysis; Z79.4 Long term (current) use of insulin; Z79.82 Long term (current) use of aspirin; Z79.899 Other long term (current) drug therapy; Z86.73 Personal history of transient ischemic attack (TIA), and cerebral infarction without residual deficits; Z80.8 Family history of malignant neoplasm of other organs or systems; Z82.49 Family history of ischemic heart disease and other diseases of the circulatory system
CPT/HCPCS: 36415; 71046; 80048; 80053; 83735; 84484; 85025; 85027; 85610; 85730; 90935; 93005; 96374; 96375; 99285

== ENCOUNTER 2022-02-09 13:28 | Emergency (ER) | payer MEDICARE, OTHER ==
[2022-02-09] MEDS ORDERED: LORazepam 2 MG/ML INJ IV STA (13:34)
--- NOTE | 2022-02-09 13:39 | ED ---
General Adult HPI - General Stated complaint: hypertension, hyperglycemia Time Seen by Provider: 02/09/22 13:28 Source: patient, RN notes reviewed, old records reviewed - History of Present Illness Initial comments: This is a 31-year-old female who presents emergency Department complaining that she was at dialysis and the only got half way through and they sent her to the emergency department because she had high blood pressure and her sugar was reading high. Patient states she took all her blood pressure medications and he r insulin this morning and her sugar was fine when she was at home. Patient denies having any symptoms except a little anxiety. Patient denies any chest pain palpitations difficulty breathing shortness of breath per patient denies any recent fever chills or cough. Patient denies lightheadedness or dizziness. Patient denies any headache patient denies numbness weakness. Patient denies abdominal pain patient denies nausea vomiting diarrhea. Patient denies any increased swelling. - Related Data Home Medications Medication Instructions Recorded Confirmed Ergocalciferol (Vitamin D2) 1,250 mcg PO Q30D 04/03/21 02/09/22 [Drisdol (50,000 Iu)] Isosorbide Mononitrate ER [Imdur] 30 mg PO HS 04/03/21 02/09/22 carvediloL [Coreg] 25 mg PO BID 04/03/21 02/09/22 Escitalopram [Lexapro] 20 mg PO DAILY 04/17/21 02/09/22 Albuterol Inhaler [Ventolin Hfa 2 puff INHALATION RT-QID PRN 12/06/21 02/09/22 Inhaler] Aspirin 81 mg PO DAILY 12/06/21 02/09/22 Methoxy Peg-Epoetin Beta [Mircera] 200 mcg IVPB Q14D 12/06/21 02/09/22 NIFEdipine XL [Procardia XL] 120 mg PO DAILY 12/06/21 02/09/22 Insulin Aspart [NovoLOG Flexpen] See Protocol SQ TID-W/MEALS 12/21/21 02/09/22 Insulin Detemir (Levemir) [Levemir] 13 unit SQ HS 12/21/21 02/09/22 Melatonin [Melatonin Dissolving 10 mg PO HS 12/21/21 02/09/22 Tablet] hydrALAZINE HCL [Apresoline] 100 mg PO TID 12/21/21 02/09/22 rOPINIRole HCL [Requip] 1 mg PO HS 12/21/21 02/09/22 Lidocaine-Prilocaine Cream [Emla 1 applic TOPICAL MOWEFR PRN 02/09/22 02/09/22 Cream 2.5%/2.5%] Losartan Potassium 100 mg PO DAILY 02/09/22 02/09/22 Prazosin [Minipress] 5 mg PO BID 02/09/22 02/09/22 buPROPion SR [Wellbutrin SR] 150 mg PO BID 02/09/22 02/09/22 Previous Rx's Medication Instructions Recorded Acetaminophen Tab [Tylenol] 650 mg PO Q6HR PRN #30 tab 04/09/21 Glucagon Emergency Kit 1 mg IM ONCE PRN #1 kit 06/15/21 Cyanocobalamin [Vitamin B-12] 1,000 mcg PO DAILY #60 tab 09/06/21 Atorvastatin [Lipitor] 40 mg PO DAILY 30 Days #30 tab 10/13/21 Calcium Acetate [PhosLo] 667 mg PO TID-W/MEALS 30 Days #90 10/13/21 tab Pantoprazole Sodium [Protonix] 20 mg PO BID #30 tab 10/15/21 LORazepam [Ativan] 1 mg PO TID PRN #90 tab 12/09/21 hydrOXYzine HCL [Atarax] 25 mg PO TID PRN #90 tab 12/09/21 cloNIDine HCL [Catapres] 0.3 mg PO TID PRN #90 tab 12/23/21 Allergies Allergy/AdvReac Type Severity Reaction Status Date / Time Fish Containing Products Allergy Rash/Hives Verified 12/21/21 21:40 [Fish] iodine Allergy Anaphylaxis Verified 12/21/21 21:40 Review of Systems ROS Statement: Those systems with pertinent positive or pertinent negative responses have been documented in the HPI. ROS Other: All systems not noted in ROS Statement are negative. Past Medical History Past Medical History: CVA/TIA, Diabetes Mellitus, Dialysis, Eye Disorder, Hypertension, Renal Disease Additional Past Medical History / Comment(s): ESRD with hemodialysis M/W/F, IDDM type 1, DKA, neuropathy bilateral legs/feet, diabetic retinopathy/legally blind, RLS, gastritis, severe hypokalemia, fluid retention in abdomin/legs. History of Any Multi-Drug Resistant Organisms: None Reported Past Surgical History: Appendectomy, Section, Cholecystectomy Additional Past Surgical History / Comment(s): fistula left arm Past Anesthesia/Blood Transfusion Reactions: No Reported Reaction Past Psychological History: Anxiety, Depression Smoking Status: Never smoker Past Alcohol Use History: None Reported Past Drug Use History: None Reported - Past Family History Mother Family Medical History: Cancer, Hypertension Additional Family Medical History / Comment(s): Thyroid cancer, bipolar Father Family Medical History: Seizure Disorder Additional Family Medical History / Comment(s): Epilepsy General Exam - General Exam Comments Initial Comments: GENERAL: Patient is well-developed and well-nourished. Patient is nontoxic and well- hydrated and is in mild distress. ENT: Neck is soft and supple. No significant lymphadenopathy is noted. Oropharynx is clear. Moist mucous membranes. Neck has full range of motion without eliciting any pain. EYES: The sclera were anicteric and conjunctiva were pink and moist. Extraocular movements were intact and pupils were equal round and reactive to light. Eyelids were unremarkable. PULMONARY: Unlabored respirations. Good breath sounds bilaterally. No audible rales rhonchi or wheezing was noted. CARDIOVASCULAR: There is a regular rate and rhythm without any murmurs gallops or rubs. ABDOMEN: Soft and nontender with normal bowel sounds. SKIN: Skin is clear with no lesions or rashes and otherwise unremarkable. NEUROLOGIC: Patient is alert and oriented x3. Cranial nerves II through XII are grossly intact. Motor and sensory are also intact. Normal speech, volume and content. Symmetrical smile. MUSCULOSKELETAL: Normal extremities with adequate strength and full range of motion. LYMPHATICS: No significant lymphadenopathy is noted PSYCHIATRIC: Normal psychiatric evaluation. Course Vital Signs 02/09/22 02/09/22 02/09/22 13:36 13:40 13:47 Temperature 98.5 F Pulse Rate 77 75 Pulse Rate [ 75 Bark Spudder ] Respiratory 16 16 Rate Blood Pressure 92/52 101/49 O2 Sat by Pulse 99 99 Oximetry 02/09/22 17:11 Temperature Pulse Rate 70 Pulse Rate [ Bark Spudder ] Respiratory 18 Rate Blood Pressure 118/60 O2 Sat by Pulse 99 Oximetry Medical Decision Making - Medical Decision Making EKG shows sinus rhythm at 71 bpm OR interval 281 QRS is 93 QT intervals 428 QTC is 451. Patient's EKG shows no ST segment elevation or depression. Patient was started on insulin after she had insulin bolus. I did not give her any large fluid boluses because of her missing half of her dialysis today. I spoke with [facility] significant with patient admitted the patient remembers I continue the insulin on the floor. I will give the patient some fluid on the floor as well. - Lab Data Result diagrams: 02/09/22 13:46 02/09/22 13:46 Lab Results 02/09/22 02/09/22 02/09/22 Range/Units 13:46 13:46 13:46 WBC 2.8 L (3.8-10.6) k/uL RBC 3.56 L (3.80-5.40) m/uL Hgb 10.0 L D (11.4-16.0) gm/dL Hct 30.5 L (34.0-46.0) % MCV 85.6 D (80.0-100.0) fL MCH 28.0 (25.0-35.0) pg MCHC 32.8 (31.0-37.0) g/dL RDW 15.0 (11.5-15.5) % Plt Count 187 (150-450) k/uL MPV 8.6 Neutrophils % 74 % Lymphocytes % 14 % Monocytes % 5 % Eosinophils % 5 % Basophils % 1 % Neutrophils # 2.1 (1.3-7.7) k/uL Lymphocytes # 0.4 L (1.0-4.8) k/uL Monocytes # 0.1 (0-1.0) k/uL Eosinophils # 0.1 (0-0.7) k/uL Basophils # 0.0 (0-0.2) k/uL Sodium 131 L (137-145) mmol/L Potassium 3.7 (3.5-5.1) mmol/L Chloride 93 L (98-107) mmol/L Carbon Dioxide 21 L (22-30) mmol/L Anion Gap 17 mmol/L BUN 28 H (7-17) mg/dL Creatinine 4.24 H (0.52-1.04) mg/dL Est GFR (CKD-EPI)AfAm 15 (>60 ml/min/1.73 sqM) Est GFR (CKD-EPI)NonAf 13 (>60 ml/min/1.73 sqM) Glucose 650 H* (74-99) mg/dL POC Glucose (mg/dL) (70-110) mg/dL POC Glu Rehabilitation Therapy Aide ID Calcium 7.4 L (8.4-10.2) mg/dL Total Bilirubin 0.6 (0.2-1.3) mg/dL AST 22 (14-36) U/L ALT 49 H (4-34) U/L Alkaline Phosphatase 135 H (38-126) U/L Total Protein 5.4 L (6.3-8.2) g/dL Albumin 3.6 (3.5-5.0) g/dL Acetone, Qual Positive (Negative) 02/09/22 02/09/22 Range/Units 13:53 17:16 WBC (3.8-10.6) k/uL RBC (3.80-5.40) m/uL Hgb (11.4-16.0) gm/dL Hct (34.0-46.0) % MCV (80.0-100.0) fL MCH (25.0-35.0) pg MCHC (31.0-37.0) g/dL RDW (11.5-15.5) % Plt Count (150-450) k/uL MPV Neutrophils % % Lymphocytes % % Monocytes % % Eosinophils % % Basophils % % Neutrophils # (1.3-7.7) k/uL Lymphocytes # (1.0-4.8) k/uL Monocytes # (0-1.0) k/uL Eosinophils # (0-0.7) k/uL Basophils # (0-0.2) k/uL Sodium (137-145) mmol/L Potassium (3.5-5.1) mmol/L Chloride (98-107) mmol/L Carbon Dioxide (22-30) mmol/L Anion Gap mmol/L BUN (7-17) mg/dL Creatinine (0.52-1.04) mg/dL Est GFR (CKD-EPI)AfAm (>60 ml/min/1.73 sqM) Est GFR (CKD-EPI)NonAf (>60 ml/min/1.73 sqM) Glucose (74-99) mg/dL POC Glucose (mg/dL) >600 H 559 H (70-110) mg/dL POC Glu Rehabilitation Therapy Aide ID Belval, Liseth Belval, Liseth Calcium (8.4-10.2) mg/dL Total Bilirubin (0.2-1.3) mg/dL AST (14-36) U/L ALT (4-34) U/L Alkaline Phosphatase (38-126) U/L Total Protein (6.3-8.2) g/dL Albumin (3.5-5.0) g/dL Acetone, Qual (Negative) Disposition Clinical Impression: DKA (diabetic ketoacidosis), Hypertensive urgency Disposition: ADMITTED IP TO THIS [facility] Referrals: Roque Buckner MD [Primary Care Provider] - 1-2 days Time of Disposition: 18:32
[2022-02-09 13:40] VITALS: TEMP 98.5
[2022-02-09] MEDS ORDERED: Magnesium Replacement Protocol 1 EACH MISC MISCELLANE PRN (13:55)
[2022-02-09] MEDS ORDERED: Potassium Replacement Protocol 1 EACH MISC MISCELLANE PRN (13:55)
[2022-02-09] MEDS ORDERED: INSULIN REGULAR BOLUS (FROM DRIP BAG) IV ONE (13:55)
[2022-02-09 13:56] LABS: Glucose,Whole Blood >600 mg/dL (70-110)
[2022-02-09 13:58] LABS: Basophils % (A) 1 %; Eosinophils # (A) 0.1 k/uL (0-0.7); Eosinophils % (A) 5 %; HCT 30.5 % (34.0-46.0); Lymphocytes # (A) 0.4 k/uL (1.0-4.8); Lymphocytes % (A) 14 %; MCHC 32.8 g/dL (31.0-37.0); Mean Platelet Volume 8.6; Monocytes # (A) 0.1 k/uL (0-1.0); Monocytes % (A) 5 %; Neutrophils # (A) 2.1 k/uL (1.3-7.7); Neutrophils % (A) 74 %; Platelet Count 187 k/uL (150-450); RBC 3.56 m/uL (3.80-5.40); WBC 2.8 k/uL (3.8-10.6)
[2022-02-09] MEDS ORDERED: SODIUM CHLORIDE 0.9% 1,000 ML IV SCH (14:00)
[2022-02-09] MEDS ORDERED: INSULIN REGULAR 100 UNIT in SODIUM CHLORIDE 0.9% 100 ML IV SCH (14:00)
[2022-02-09 14:09] LABS: Albumin 3.6 g/dL (3.5-5.0); Calcium 7.4 mg/dL (8.4-10.2); Potassium 3.7 mmol/L (3.5-5.1); Total Bilirubin 0.6 mg/dL (0.2-1.3); Total Protein 5.4 g/dL (6.3-8.2)
[2022-02-09 14:14] LABS: MCV 85.6 fL (80.0-100.0)
[2022-02-09 17:17] LABS: Glucose,Whole Blood 559 mg/dL (70-110)
[2022-02-09 19:17] LABS: Glucose,Whole Blood 160 mg/dL (70-110)
[2022-02-09 20:11] LABS: Phosphorus 2.6 mg/dL (2.5-4.5); Potassium 3.5 mmol/L (3.5-5.1)
[2022-02-09 20:28] LABS: Glucose,Whole Blood 38 mg/dL (70-110)
[2022-02-09] MEDS ORDERED: DEXTROSE 50% SYRINGE 50 ML IVP STA (20:46)
[2022-02-09 20:50] VITALS: BP 133/66; PULSE 77; RESP 15
--- NOTE | 2022-02-14 21:40 | P.DS ---
Providers Date of admission: 02/09/22 18:37 Attending physician: Hector Pena Consults: 02/09/22 18:37 Consult Physician Urgent Consulting Provider: Fox Chase Consult Reason/Comments: Kidney failure Do you want consulting provider notified?: Yes Primary care physician: Roque Buckner Hospital Course: Patient was admitted to hospitalist service and remained in the EC pending bed on the floor. Patient was treated with insulin gtt by ER physician and patient left AMA from the emergency center prior to be evaluated by admitting service. This was discussed with utilization review and per UR patients hospital visit to be changed to ER visit. Plan - Discharge Summary New Discharge Prescriptions: No Action Escitalopram [Lexapro] 20 mg PO DAILY Glucagon Emergency Kit 1 mg IM ONCE PRN #1 kit PRN Reason: Hypoglycemia Cyanocobalamin [Vitamin B-12] 1,000 mcg PO DAILY #60 tab Atorvastatin [Lipitor] 40 mg PO DAILY 30 Days #30 tab Calcium Acetate [PhosLo] 667 mg PO TID-W/MEALS 30 Days #90 tab LORazepam [Ativan] 1 mg PO TID PRN #90 tab PRN Reason: Agitation rOPINIRole HCL [Requip] 1 mg PO HS Prazosin [Minipress] 5 mg PO BID Losartan Potassium 100 mg PO DAILY Isosorbide Mononitrate ER [Imdur] 30 mg PO HS Ergocalciferol (Vitamin D2) [Drisdol (50,000 Iu)] 1,250 mcg PO Q30D carvediloL [Coreg] 25 mg PO BID Acetaminophen Tab [Tylenol] 650 mg PO Q6HR PRN #30 tab PRN Reason: Fever And/ Or Pain Pantoprazole Sodium [Protonix] 20 mg PO BID #30 tab Methoxy Peg-Epoetin Beta [Mircera] 200 mcg IVPB Q14D Aspirin 81 mg PO DAILY Albuterol Inhaler [Ventolin Hfa Inhaler] 2 puff INHALATION RT-QID PRN PRN Reason: Shortness Of Breath NIFEdipine XL [Procardia XL] 120 mg PO DAILY hydrOXYzine HCL [Atarax] 25 mg PO TID PRN #90 tab PRN Reason: Itching Melatonin [Melatonin Dissolving Tablet] 10 mg PO HS Insulin Detemir (Levemir) [Levemir] 13 unit SQ HS hydrALAZINE HCL [Apresoline] 100 mg PO TID Insulin Aspart [NovoLOG Flexpen] See Protocol SQ TID-W/MEALS cloNIDine HCL [Catapres] 0.3 mg PO TID PRN #90 tab PRN Reason: high blood pressure buPROPion SR [Wellbutrin SR] 150 mg PO BID Lidocaine-Prilocaine Cream [Emla Cream 2.5%/2.5%] 1 applic TOPICAL MOWEFR PRN PRN Reason: AVF Access Discharge Medication List Ergocalciferol (Vitamin D2) [Drisdol (50,000 Iu)] 1,250 mcg PO Q30D 04/03/21 [History] Isosorbide Mononitrate ER [Imdur] 30 mg PO HS 04/03/21 [History] carvediloL [Coreg] 25 mg PO BID 04/03/21 [History] Acetaminophen Tab [Tylenol] 650 mg PO Q6HR PRN #30 tab 04/09/21 [Rx] Escitalopram [Lexapro] 20 mg PO DAILY 04/17/21 [History] Glucagon Emergency Kit 1 mg IM ONCE PRN #1 kit 06/15/21 [Rx] Cyanocobalamin [Vitamin B-12] 1,000 mcg PO DAILY #60 tab 09/06/21 [Rx] Atorvastatin [Lipitor] 40 mg PO DAILY 30 Days #30 tab 10/13/21 [Rx] Calcium Acetate [PhosLo] 667 mg PO TID-W/MEALS 30 Days #90 tab 10/13/21 [Rx] Pantoprazole Sodium [Protonix] 20 mg PO BID #30 tab 10/15/21 [Rx] Albuterol Inhaler [Ventolin Hfa Inhaler] 2 puff INHALATION RT-QID PRN 12/06/21 [History] Aspirin 81 mg PO DAILY 12/06/21 [History] Methoxy Peg-Epoetin Beta [Mircera] 200 mcg IVPB Q14D 12/06/21 [History] NIFEdipine XL [Procardia XL] 120 mg PO DAILY 12/06/21 [History] LORazepam [Ativan] 1 mg PO TID PRN #90 tab 12/09/21 [Rx] hydrOXYzine HCL [Atarax] 25 mg PO TID PRN #90 tab 12/09/21 [Rx] Insulin Aspart [NovoLOG Flexpen] See Protocol SQ TID-W/MEALS 12/21/21 [History] Insulin Detemir (Levemir) [Levemir] 13 unit SQ HS 12/21/21 [History] Melatonin [Melatonin Dissolving Tablet] 10 mg PO HS 12/21/21 [History] hydrALAZINE HCL [Apresoline] 100 mg PO TID 12/21/21 [History] rOPINIRole HCL [Requip] 1 mg PO HS 12/21/21 [History] cloNIDine HCL [Catapres] 0.3 mg PO TID PRN #90 tab 12/23/21 [Rx] Lidocaine-Prilocaine Cream [Emla Cream 2.5%/2.5%] 1 applic TOPICAL MOWEFR PRN 02/09/22 [History] Losartan Potassium 100 mg PO DAILY 02/09/22 [History] Prazosin [Minipress] 5 mg PO BID 02/09/22 [History] buPROPion SR [Wellbutrin SR] 150 mg PO BID 02/09/22 [History] Follow up Appointment(s)/Referral(s): Roque Buckner MD [Primary Care Provider] - 1-2 days Discharge Disposition: Left Against Medical Advice
== END 2022-02-09 21:47 | disposition left against medical advice (07) ==
LOC: EC 13:28 → 3SCARD 18:37 → UNDOADMIN 18:37 → 3SCARD 20:11 → UNDODISIN 23:31
DX: E10.10 Type 1 diabetes mellitus with ketoacidosis without coma (principal); E10.22 Type 1 diabetes mellitus with diabetic chronic kidney disease; E10.319 Type 1 diabetes mellitus with unspecified diabetic retinopathy without macular edema; E10.42 Type 1 diabetes mellitus with diabetic polyneuropathy; I12.0 Hypertensive chronic kidney disease with stage 5 chronic kidney disease or end stage renal disease; N18.6 End stage renal disease; Z99.2 Dependence on renal dialysis; H54.8 Legal blindness, as defined in USA; Z79.899 Other long term (current) drug therapy; Z79.82 Long term (current) use of aspirin; Z79.4 Long term (current) use of insulin; Z53.29 Procedure and treatment not carried out because of patient's decision for other reasons
CPT/HCPCS: 36415; 93005; 80051; 80053; 82565; 82009; 84100; 82947; 84520; 85025; 99285; 96374; 96375; J2060

== ENCOUNTER 2022-02-16 10:45 | Inpatient (IN) | payer MEDICARE, OTHER ==
[2022-02-16] MEDS ORDERED: SODIUM CHLORIDE 0.9% 500 ML 500 ML IV STA (10:54)
[2022-02-16] MEDS ORDERED: LORazepam 2 MG/ML INJ IV STA ×3 (10:55→12:52)
[2022-02-16] MEDS ORDERED: ALBUTEROL NEBULIZED (CONC) 20 MG, SODIUM CHLORIDE 0.9% NEBULIZ 3 ML INHALATION ONE ×2 (11:18)
[2022-02-16 11:25] LABS: Basophils % (A) 1 %; Eosinophils # (A) 0.1 k/uL (0-0.7); Eosinophils % (A) 3 %; HCT 25.6 % (34.0-46.0); HGB 8.7 gm/dL (11.4-16.0); Lymphocytes # (A) 0.5 k/uL (1.0-4.8); Lymphocytes % (A) 13 %; MCH 28.4 pg (25.0-35.0); MCHC 33.8 g/dL (31.0-37.0); MCV 83.9 fL (80.0-100.0); Mean Platelet Volume 9.3; Monocytes # (A) 0.2 k/uL (0-1.0); Monocytes % (A) 5 %; Neutrophils # (A) 3.2 k/uL (1.3-7.7); Neutrophils % (A) 78 %; Platelet Count 175 k/uL (150-450); RBC 3.05 m/uL (3.80-5.40); RDW 15.1 % (11.5-15.5); WBC 4.1 k/uL (3.8-10.6)
[2022-02-16 11:48] LABS: Albumin 3.7 g/dL (3.5-5.0); Magnesium 2.1 mg/dL (1.6-2.3); Total Bilirubin 0.4 mg/dL (0.2-1.3); Total Protein 5.5 g/dL (6.3-8.2)
[2022-02-16] MEDS ORDERED: DEXTROSE 50% SYRINGE 50 ML IVP ONE (11:58)
[2022-02-16] MEDS ORDERED: ATROPINE SULFATE 0.1 MG/ML 10ML SYRINGE ONE (11:58)
[2022-02-16] MEDS ORDERED: SODIUM BICARB 8.4% 50 ML SYR (1 MEQ/ML) ONE (11:58)
[2022-02-16] MEDS ORDERED: EPINEPHrine 10 ML SYRINGE (0.1 MG/ML) ONE (11:58)
[2022-02-16] MEDS ORDERED: SUCCINYLCHOLINE CHLORIDE 200 MG/10 ML VIAL IV ONE (12:00)
[2022-02-16] MEDS ORDERED: INSULIN REGULAR 100 UNIT/ML VIAL (IV) IV ONE ×2 (12:01→14:59)
[2022-02-16 12:02] LABS: Potassium 6.5 mmol/L (3.5-5.1)
[2022-02-16] MEDS ORDERED: FUROSEMIDE 10 MG/ML 4 ML VIAL IV STA ×2 (12:07→13:00)
[2022-02-16 12:17] LABS: ABG Base Excess -3.7 mmol/L; ABG HCO3 22 mmol/L (21-25); ABG Oxygen Saturation 85.4 % (94-97); ABG PCO2 38 mmHg (35-45); ABG PH 7.36 (7.35-7.45); ABG TCO2 23 mmol/L (19-24); Allen Test Performed? Yes
[2022-02-16 12:19] LABS: ABG Hematocrit 23 % (34.0-46.0); ABG PO2 52 mmHg (83-108)
--- NOTE | 2022-02-16 12:20 | XR ---
EXAMINATION TYPE: XR chest 1V portable DATE OF EXAM: 02/16/2022 COMPARISON: NONE HISTORY: Chest pain TECHNIQUE: Single frontal view of the chest is obtained. FINDINGS: Diffuse airspace disease is seen throughout both lung herr. There is evidence of cardiomegaly. NG t ube is seen noted to course within the stomach. Endotracheal tube is appropriately placed. Hilar and mediastinal structures are grossly unremarkable. IMPRESSION: 1. Diffuse airspace disease with cardiomegaly.
[2022-02-16] MEDS ORDERED: NOREPINEPHRINE 4 MG in SODIUM CHLORIDE 0.9% 250 ML IV ONE (12:30)
--- NOTE | 2022-02-16 12:32 | ED ---
Dizziness HPI - General Chief Complaint: Dizziness Stated Complaint: hypotension Time Seen by Provider: 02/16/22 10:45 Source: patient, EMS, RN notes reviewed Mode of arrival: EMS Limitations: no limitations - History of Present Illness Initial Comments: 31-year-old female history of kidney failure and dialysis was due for dialysis today who called EMS because this morning she felt lightheaded dizzy very weak area she was found by paramedics have a heart rate of 44-46 beats a minute she was reportedly hypotensive. She states her normal heart rate is around 90-100 beats a minute. Upon arrival she was noted have a saturation of 90% 75/45 blood pressure. Heart rate was noted be 38 and a repeat blood pressure 73/39. Patient states she feels anxious and jittery denies any chest pain headache blurry vision nausea vomiting no cough or phlegm production reported. She states she's never had a heart rate is slow or blood pressure was low in the past. She has no history of hyperkalemia she states. MD Complaint: dizziness, lightheadedness - Related Data Home Medications Medication Instructions Recorded Confirmed Ergocalciferol (Vitamin D2) 1,250 mcg PO Q30D 04/03/21 02/09/22 [Drisdol (50,000 Iu)] Isosorbide Mononitrate ER [Imdur] 30 mg PO HS 04/03/21 02/09/22 carvediloL [Coreg] 25 mg PO BID 04/03/21 02/09/22 Escitalopram [Lexapro] 20 mg PO DAILY 04/17/21 02/09/22 Albuterol Inhaler [Ventolin Hfa 2 puff INHALATION RT-QID PRN 12/06/21 02/09/22 Inhaler] Aspirin 81 mg PO DAILY 12/06/21 02/09/22 Methoxy Peg-Epoetin Beta [Mircera] 200 mcg IVPB Q14D 12/06/21 02/09/22 NIFEdipine XL [Procardia XL] 120 mg PO DAILY 12/06/21 02/09/22 Insulin Aspart [NovoLOG Flexpen] See Protocol SQ TID-W/MEALS 12/21/21 02/09/22 Insulin Detemir (Levemir) [Levemir] 13 unit SQ HS 12/21/21 02/09/22 Melatonin [Melatonin Dissolving 10 mg PO HS 12/21/21 02/09/22 Tablet] hydrALAZINE HCL [Apresoline] 100 mg PO TID 12/21/21 02/09/22 rOPINIRole HCL [Requip] 1 mg PO HS 12/21/21 02/09/22 Lidocaine-Prilocaine Cream [Emla 1 applic TOPICAL MOWEFR PRN 02/09/22 02/09/22 Cream 2.5%/2.5%] Losartan Potassium 100 mg PO DAILY 02/09/22 02/09/22 Prazosin [Minipress] 5 mg PO BID 02/09/22 02/09/22 buPROPion SR [Wellbutrin SR] 150 mg PO BID 02/09/22 02/09/22 Previous Rx's Medication Instructions Recorded Acetaminophen Tab [Tylenol] 650 mg PO Q6HR PRN #30 tab 04/09/21 Glucagon Emergency Kit 1 mg IM ONCE PRN #1 kit 06/15/21 Cyanocobalamin [Vitamin B-12] 1,000 mcg PO DAILY #60 tab 09/06/21 Atorvastatin [Lipitor] 40 mg PO DAILY 30 Days #30 tab 10/13/21 Calcium Acetate [PhosLo] 667 mg PO TID-W/MEALS 30 Days #90 10/13/21 tab Pantoprazole Sodium [Protonix] 20 mg PO BID #30 tab 10/15/21 LORazepam [Ativan] 1 mg PO TID PRN #90 tab 12/09/21 hydrOXYzine HCL [Atarax] 25 mg PO TID PRN #90 tab 12/09/21 cloNIDine HCL [Catapres] 0.3 mg PO TID PRN #90 tab 12/23/21 Allergies Allergy/AdvReac Type Severity Reaction Status Date / Time Fish Containing Products Allergy Rash/Hives Verified 02/16/22 11:28 [Fish] iodine Allergy Anaphylaxis Verified 02/16/22 11:28 Review of Systems ROS Statement: Those systems with pertinent positive or pertinent negative responses have been documented in the HPI. ROS Other: All systems not noted in ROS Statement are negative. Past Medical History Past Medical History: CVA/TIA, Diabetes Mellitus, Dialysis, Eye Disorder, Hypertension, Renal Disease Additional Past Medical History / Comment(s): ESRD with hemodialysis M/W/F, IDDM type 1, DKA, neuropathy bilateral legs/feet, diabetic retinopathy/legally blin d, RLS, gastritis, severe hypokalemia, fluid retention in abdomin/legs. History of Any Multi-Drug Resistant Organisms: None Reported Past Surgical History: Appendectomy, Section, Cholecystectomy Additional Past Surgical History / Comment(s): fistula left arm Past Anesthesia/Blood Transfusion Reactions: No Reported Reaction Past Psychological History: Anxiety, Depression Smoking Status: Never smoker Past Alcohol Use History: None Reported Past Drug Use History: None Reported - Past Family History Mother Family Medical History: Cancer, Hypertension Additional Family Medical History / Comment(s): Thyroid cancer, bipolar Father Family Medical History: Seizure Disorder Additional Family Medical History / Comment(s): Epilepsy General Exam - General Exam Comments Initial Comments: This is a well-developed well-nourished awake alert oriented 4 female Limitations: no limitations General appearance: alert, anxious Head exam: Present: atraumatic, normocephalic, normal inspection Eye exam: Present: normal appearance, PERRL, EOMI. Absent: scleral icterus, conjunctival injection, periorbital swelling ENT exam: Present: mucous membranes dry Neck exam: Present: normal inspection. Absent: tenderness, meningismus, lymphadenopathy Respiratory exam: Present: decreased breath sounds. Absent: respiratory dis tress, wheezes, rales, rhonchi, stridor Cardiovascular Exam: Present: regular rate, normal rhythm, normal heart sounds. Absent: systolic murmur, diastolic murmur, rubs, gallop, clicks GI/Abdominal exam: Present: soft, normal bowel sounds. Absent: distended, tenderness, guarding, rebound, rigid Extremities exam: Present: normal inspection, full ROM, normal capillary refill. Absent: tenderness, pedal edema, joint swelling, calf tenderness Back exam: Present: normal inspection Neurological exam: Present: alert, oriented X3, CN II-XII intact Psychiatric exam: Present: normal affect, normal mood Skin exam: Present: warm, dry, intact, normal color. Absent: rash Course Vital Signs 02/16/22 02/16/22 02/16/22 10:45 11:10 11:41 Temperature 98.1 F Pulse Rate 39 L Respiratory 20 Rate Blood Pressure 83/50 O2 Sat by Pulse 96 Oximetry Fraction of 100 100 Inspired Oxygen (FIO2) 02/16/22 02/16/22 02/16/22 11:45 12:00 12:05 Temperature Pulse Rate 52 L 41 L 38 L Respiratory 20 20 Rate Blood Pressure 71/46 O2 Sat by Pulse Oximetry Fraction of Inspired Oxygen (FIO2) 02/16/22 12:25 Temperature Pulse Rate 41 L Respiratory 20 Rate Blood Pressure 76/36 O2 Sat by Pulse Oximetry Fraction of Inspired Oxygen (FIO2) - Reevaluation(s) Reevaluation #1: 02/16/22 12:30 Patient during the workup was suspected having hyperkalemia due to her history. The hyperkalemia Cocktail was ordered blood the patient became unresponsive and apneic as well as demonstrating lack of heart sounds and on a monitor evidence of asystole. CPR was started immediately. The patient require CPR as well as CPR medications. He did require oral tracheal intubation. After the above patient did seem to normalize with improved blood pressure heart rate. Reevaluation #2: 02/16/22 12:35 I did discuss the case with Dr. Buckner as well as Dr. Ordonez. Dr. Poe is to be contacted. Patient will be admitted to the intensive care unit. EKG Findings - EKG Results: EKG: interpreted by ERMD, sinus rhythm (Sinus bradycardia first-degree AV block rate 36. Interval to 41 QRS duration 90 QT since QTC 540/447 some prominent T waves noted ) Procedures - Intubation Paralytic: Succinylcholine Mg Given: 100 Laryngoscope: Kalyan Size: 3 ET Tube Size: 7.5 ET Tube Uncuffed: No (Cuffed) Tube Secured Depth (cm): 21 Tube Secured Location: lips Tube Placement Confirmation: visualized tube passing through cords Intubation Complications: difficult intubation (Patient was a difficult intubation as here with copious amounts of frothy colored material in the poste rior pharynx which I did suction out. I did apply Peridex. Initial intubation was tried with a 3 Villegas blade but finally is a 3 Herrmann with good visualization of the cords. Prior to intubatio) Medical Decision Making - Medical Decision Making I did discuss findings with Dr. Buckner as well as Dr. Ordonez. Patient be admitted to intensive care unit with cardiac arrest, respiratory failure, pulmonary edema, hyperkalemia - Lab Data Result diagrams: 02/16/22 11:15 02/16/22 11:15 Lab Results 09/21/22 09/21/22 09/21/22 Range/Units 11:15 11:15 11:15 WBC 4.1 (3.8-10.6) k/uL RBC 3.05 L (3.80-5.40) m/uL Hgb 8.7 L (11.4-16.0) gm/dL Hct 25.6 L (34.0-46.0) % MCV 83.9 (80.0-100.0) fL MCH 28.4 (25.0-35.0) pg MCHC 33.8 (31.0-37.0) g/dL RDW 15.1 (11.5-15.5) % Plt Count 175 (150-450) k/uL MPV 9.3 Neutrophils % 78 % Lymphocytes % 13 % Monocytes % 5 % Eosinophils % 3 % Basophils % 1 % Neutrophils # 3.2 (1.3-7.7) k/uL Lymphocytes # 0.5 L (1.0-4.8) k/uL Monocytes # 0.2 (0-1.0) k/uL Eosinophils # 0.1 (0-0.7) k/uL Basophils # 0.0 (0-0.2) k/uL Sample Site ABG pH (7.35-7.45) ABG pCO2 (35-45) mmHg ABG pO2 (83-108) mmHg ABG HCO3 (21-25) mmol/L ABG Total CO2 (19-24) mmol/L ABG O2 Saturation (94-97) % ABG Base Excess mmol/L ABG Hematocrit (34.0-46.0) % Marco Test Hemoglobin (11.4-16.0) gm/dL FiO2 % Sodium 128 L (137-145) mmol/L Potassium 6.5 H* (3.5-5.1) mmol/L Chloride 89 L (98-107) mmol/L Carbon Dioxide 20 L (22-30) mmol/L Anion Gap 19 mmol/L BUN 53 H (7-17) mg/dL Creatinine 7.52 H* (0.52-1.04) mg/dL Est GFR (CKD-EPI)AfAm 8 (>60 ml/min/1.73 sqM) Est GFR (CKD-EPI)NonAf 7 (>60 ml/min/1.73 sqM) Glucose 453 H (74-99) mg/dL Calcium 9.0 (8.4-10.2) mg/dL Magnesium 2.1 (1.6-2.3) mg/dL Total Bilirubin 0.4 (0.2-1.3) mg/dL AST 35 (14-36) U/L ALT 66 H (4-34) U/L Alkaline Phosphatase 124 (38-126) U/L Creatine Kinase 52 (30-135) U/L Troponin I <0.012 (0.000-0.034) ng/mL Total Protein 5.5 L (6.3-8.2) g/dL Albumin 3.7 (3.5-5.0) g/dL 02/16/22 Range/Units 12:14 WBC (3.8-10.6) k/uL RBC (3.80-5.40) m/uL Hgb (11.4-16.0) gm/dL Hct (34.0-46.0) % MCV (80.0-100.0) fL MCH (25.0-35.0) pg MCHC (31.0-37.0) g/dL RDW (11.5-15.5) % Plt Count (150-450) k/uL MPV Neutrophils % % Lymphocytes % % Monocytes % % Eosinophils % % Basophils % % Neutrophils # (1.3-7.7) k/uL Lymphocytes # (1.0-4.8) k/uL Monocytes # (0-1.0) k/uL Eosinophils # (0-0.7) k/uL Basophils # (0-0.2) k/uL Sample Site r rad ABG pH 7.36 (7.35-7.45) ABG pCO2 38 (35-45) mmHg ABG pO2 52 L* (83-108) mmHg ABG HCO3 22 (21-25) mmol/L ABG Total CO2 23 (19-24) mmol/L ABG O2 Saturation 85.4 L (94-97) % ABG Base Excess -3.7 mmol/L ABG Hematocrit 23 L (34.0-46.0) % Marco Test Yes Hemoglobin 7.5 L (11.4-16.0) gm/dL FiO2 100 % Sodium (137-145) mmol/L Potassium (3.5-5.1) mmol/L Chloride (98-107) mmol/L Carbon Dioxide (22-30) mmol/L Anion Gap mmol/L BUN (7-17) mg/dL Creatinine (0.52-1.04) mg/dL Est GFR (CKD-EPI)AfAm (>60 ml/min/1.73 sqM) Est GFR (CKD-EPI)NonAf (>60 ml/min/1.73 sqM) Glucose (74-99) mg/dL Calcium (8.4-10.2) mg/dL Magnesium (1.6-2.3) mg/dL Total Bilirubin (0.2-1.3) mg/dL AST (14-36) U/L ALT (4-34) U/L Alkaline Phosphatase (38-126) U/L Creatine Kinase (30-135) U/L Troponin I (0.000-0.034) ng/mL Total Protein (6.3-8.2) g/dL Albumin (3.5-5.0) g/dL - Radiology Data Radiology results: report reviewed (Imaging reviewed as well as report evidence of increased pulmonary vascular congestion), image reviewed Critical Care Time Critical Care Time: Yes Total Critical Care Time: 49 Critical Care Time: This includes initial presentation with history physical discussed with paramedics labs x-rays multiple reevaluation the patient is also include the ti me for coding the patient. This is an including intubation time. Review of old charting discussed with multiple physicians admission orders documentation the above Disposition Clinical Impression: Cardiac arrest, Pulmonary edema, Hyperkalemia, Bradycardia, Hypotension, Chronic renal failure syndrome Disposition: ADMITTED IP TO THIS [facility] Condition: Critical Referrals: Roque Buckner MD [Primary Care Provider] - 1-2 days Decision Date: 02/16/22 Decision Time: 12:00
[2022-02-16] MEDS ORDERED: NALOXONE 0.4 MG/ML 1 ML VIAL IV PRN (12:42)
[2022-02-16 13:15] LABS: Glucose,Whole Blood 593 mg/dL (70-110)
[2022-02-16] MEDS: SODIUM CHLORIDE 0.9% 1,000 ML IV SCH (13:23)
[2022-02-16 14:05] LABS: Glucose,Whole Blood 562 mg/dL (70-110)
--- NOTE | 2022-02-16 14:56 | XR ---
EXAMINATION TYPE: XR chest 1V portable DATE OF EXAM: 02/16/2022 COMPARISON: Chest x-ray 02/16/2022 and earlier time HISTORY: Intubated TECHNIQUE: Single frontal view of the chest is obtained. FINDINGS: Endotracheal tube and NG tube are overlying appropriate positions. Suspect some improvemen t in the confluence of the airspace disease within the lungs with residual groundglass opacity, there is no pneumothorax or pleural effusion evident. Heart is enlarged. There are overlying artifacts. IMPRESSION: Suspect some improvement in aeration. Cardiomegaly.
--- NOTE | 2022-02-16 14:59 | P.CNPUL ---
History of Present Illness Consult date: 02/16/22 Chief complaint: Respiratory failure/cardiac arrest History of present illness: 31-year-old female patient with multiple medical present comorbidities. The patient is known to have type 1 diabetes mellitus, and the patient has end-stage renal disease and the patient is on hemodialysis. Blood sugar control with that over the years and the patient has had previous hospitalizations for pneumonia, missed dialysis, she is for hyperkalemia and fluid overload and pulmonary edema. She has also also been treated for hypertensive emergencies. The patient brought into the emergency department today as the patient was feeling lightheaded and dizzy and very weak. The patient was due for dialysis today. She is undergoing dialysis today. The patient was found to be bradycardic by EMS and the patient's heart rate was in the low 40s. She was brought into the emergency and she had a blood pressure 75/45 with a pulse ox of 90% on room air. Heart rate subsequently slowed down further went down to the 30s and following that the patient was feeling anxious and jittery denies having any chest pain. Subsequently, she goes into a cardiac arrest, asystole and the patient was resuscitated with a downtime estimated to be around 10 minutes. The patient went into asystole and CPR was initiated immediately. She did require intubation. I was also told that this was a difficult intubation as the patient has copious amount of frothy colored material in the posterior oropharynx which was suctioned out. During the course of her treatment, the patient was given hyperkalemia cocktail. The blood work came back with a sodium level of 128, pot assium level was 5 and the patient had a chloride of 89 with a bicarb of 20 with a 53 and a creatinine of 7.52. The patient had a flexor count of 4.4 hemoglobin 8.7 and a platelet count of 175. The blood gases on 100% FiO2 showed a pH of 7.36 with a pCO2 of 38 and pO2 of 52. This was the blood gases was done immediately after intubation. The patient is currently in the intensive care unit on assist-control mode of mechanical ventilation at the rate of 20, tidal volume of 400, FiO2 of 100% with a PEEP of 8. Current pulse ox is 96%. The patient is sedated with propofol which is running at 50 mcg/kg per minute. The patient was also started on pressors for hypotension. Norepinephrine is running at 0.18 mcg/kg per minute. Post intubation chest x-ray showed cardiomegaly and pulmonary edema. ET tube is in a good location. The patient also has a orogastric tube which is in good location. She is arousable and she response to stimulation and she is moving all 4 extremities without any limitation.. On her blood work, the patient has a white cell count of 4.1 with a hemoglobin of 8.7 and a platelet count of 175. Her proBNP level was 49,200. Troponin was negative. Most recent blood sugar is at 562. Review of Systems ROS unobtainable: due to endotracheal tube Past Medical History Past Medical History: CVA/TIA, Diabetes Mellitus, Dialysis, Eye Disorder, Hypertension, Renal Disease Additional Past Medical History / Comment(s): ESRD with hemodialysis M/W/F, IDDM type 1, DKA, neuropathy bilateral legs/feet, diabetic retinopathy/legally blind, RLS, gastritis, severe hypokalemia, fluid retention in abdomin/legs. History of Any Multi-Drug Resistant Organisms: None Reported Past Surgical History: Appendectomy, Section, Cholecystectomy Additional Past Surgical History / Comment(s): fistula left arm Past Anesthesia/Blood Transfusion Reactions: No Reported Reaction Past Psychological History: Anxiety, Depression Smoking Status: Never smoker Past Alcohol Use History: None Reported Past Drug Use History: None Reported - Past Family History Mother Family Medical History: Cancer, Hypertension Additional Family Medical History / Comment(s): Thyroid cancer, bipolar Father Family Medical History: Seizure Disorder Additional Family Medical History / Comment(s): Epilepsy Medications and Allergies Home Medications Medication Instructions Recorded Confirmed Type Ergocalciferol (Vitamin D2) 1,250 mcg PO Q30D 04/03/21 02/16/22 History [Drisdol (50,000 Iu)] Isosorbide Mononitrate ER [Imdur] 30 mg PO HS 04/03/21 02/16/22 History carvediloL [Coreg] 25 mg PO BID 04/03/21 02/16/22 History Acetaminophen Tab [Tylenol] 650 mg PO Q6HR PRN #30 tab 04/09/21 02/16/22 Rx Escitalopram [Lexapro] 20 mg PO DAILY 04/17/21 02/16/22 History Glucagon Emergency Kit 1 mg IM ONCE PRN #1 kit 06/15/21 02/16/22 Rx Cyanocobalamin [Vitamin B-12] 1,000 mcg PO DAILY #60 tab 09/06/21 02/16/22 Rx Atorvastatin [Lipitor] 40 mg PO DAILY 30 Days #30 tab 10/13/21 02/16/22 Rx Calcium Acetate [PhosLo] 667 mg PO TID-W/MEALS 30 Days #90 10/13/21 02/16/22 Rx tab Pantoprazole Sodium [Protonix] 20 mg PO BID #30 tab 10/15/21 02/16/22 Rx Albuterol Inhaler [Ventolin Hfa 2 puff INHALATION RT-QID PRN 12/06/21 02/16/22 History Inhaler] Aspirin 81 mg PO DAILY 12/06/21 02/16/22 History Methoxy Peg-Epoetin Beta [Mircera] 200 mcg IVPB Q14D 12/06/21 02/16/22 History NIFEdipine XL [Procardia XL] 120 mg PO DAILY 12/06/21 02/16/22 History LORazepam [Ativan] 1 mg PO TID PRN #90 tab 12/09/21 02/16/22 Rx hydrOXYzine HCL [Atarax] 25 mg PO TID PRN #90 tab 12/09/21 02/16/22 Rx Insulin Aspart [NovoLOG Flexpen] See Protocol SQ TID-W/MEALS 12/21/21 02/16/22 History Insulin Detemir (Levemir) [Levemir] 13 unit SQ HS 12/21/21 02/16/22 History Melatonin [Melatonin Dissolving 10 mg PO HS 12/21/21 02/16/22 History Tablet] hydrALAZINE HCL [Apresoline] 100 mg PO TID 12/21/21 02/16/22 History rOPINIRole HCL [Requip] 1 mg PO HS 12/21/21 02/16/22 History cloNIDine HCL [Catapres] 0.3 mg PO TID PRN #90 tab 12/23/21 02/16/22 Rx Lidocaine-Prilocaine Cream [Emla 1 applic TOPICAL MOWEFR PRN 02/09/22 02/16/22 History Cream 2.5%/2.5%] Losartan Potassium 100 mg PO DAILY 02/09/22 02/16/22 History Prazosin [Minipress] 5 mg PO BID 02/09/22 02/16/22 History buPROPion SR [Wellbutrin SR] 150 mg PO BID 02/09/22 02/16/22 History Allergies Allergy/AdvReac Type Severity Reaction Status Date / Time Fish Containing Products Allergy Rash/Hives Verified 02/16/22 11:28 [Fish] iodine Allergy Anaphylaxis Verified 02/16/22 11:28 Physical Exam Vitals: Vital Signs Temp Pulse Resp BP Pulse Ox FiO2 02/16/22 13:35 51 L 20 103/51 90 L 02/16/22 13:21 49 L 20 94/46 02/16/22 12:41 44 L 20 84/38 02/16/22 12:25 41 L 20 76/36 02/16/22 12:05 38 L 20 02/16/22 12:00 41 L 71/46 02/16/22 11:45 52 L 20 02/16/22 11:41 100 02/16/22 11:10 100 02/16/22 10:45 98.1 F 39 L 20 83/50 96 Intake and Output 02/15/22 02/16/22 02/16/22 22:59 06:59 14:59 Intake Total 33.961 Balance 33.961 Intake: Intake, IV Titration 33.961 Amount Norepinephrine 4 mg In 33.104 Sodium Chloride 0.9% 250 ml @ 0.05 MCG/KG/MIN 10. 974 mls/hr IV .[id number] [facility] Rx#:[id number] propofoL 1,000 mg In 0.857 Empty Bag 1 bag @ 5 MCG/ KG/MIN 1.428 mls/hr IV . Q24H [facility] Rx#:[id number] Other: Weight 57.606 kg GENERAL EXAM: Alert, pleasant, 30-year-old white female, resting in bed, the patient intubated on mechanical ventilator. The patient has an orogastric and o rotracheal tube. The patient is currently intubated. The patient is sedated with propofol. HEAD: Normocephalic/atraumatic. EYES: Normal reaction of pupils, equal size. Conjunctiva pink, sclera white. NOSE: Clear with pink turbinates. THROAT: No erythema or exudates. NECK: No masses, no JVD, no thyroid enlargement, no adenopathy. CHEST: No chest wall deformity. Symmetrical expansion. LUNGS: Equal air entry with no crackles, wheeze, rhonchi or dullness. CVS: Regular rate and rhythm, normal S1 and S2, no gallops, no murmurs, no rubs ABDOMEN: Soft, nontender. No hepatosplenomegaly, normal bowel sounds, no guarding or rigidity. EXTREMITIES: No clubbing, no edema, no cyanosis, 2+ pulses and upper and lower extremities. left Arm AV fistula MUSCULOSKELETAL: Muscle strength and tone normal. SPINE: No scoliosis or deformity SKIN: No rashes CENTRAL NERVOUS SYSTEM: The patient is currently on propofol and the patient is sedated. The patient is withdrawing to painful stim additional 4 extremities. No facial asymmetry. Positive cough and a gag. Pupils around 8 mm in size, equal and symmetrical he is sluggish and reactive to light. No nystagmus no clonus. No Babinski. Results - Laboratory Findings CBC and BMP: 02/16/22 11:15 02/16/22 11:15 ABG ABG pH 7.36 (7.35-7.45) 02/16/22 12:14 ABG pCO2 38 mmHg (35-45) 02/16/22 12:14 ABG pO2 52 mmHg (83-108) L* 02/16/22 12:14 ABG O2 Saturation 85.4 % (94-97) L 02/16/22 12:14 Abnormal lab findings: Abnormal Labs 02/16/22 02/16/22 02/16/22 11:15 11:15 12:14 RBC 3.05 L Hgb 8.7 L Hct 25.6 L Lymphocytes # 0.5 L ABG pO2 52 L* ABG O2 Saturation 85.4 L ABG Hematocrit 23 L Hemoglobin 7.5 L Sodium 128 L Potassium 6.5 H* Chloride 89 L Carbon Dioxide 20 L BUN 53 H Creatinine 7.52 H* Glucose 453 H POC Glucose (mg/dL) ALT 66 H Total Protein 5.5 L 02/16/22 13:13 RBC Hgb Hct Lymphocytes # ABG pO2 ABG O2 Saturation ABG Hematocrit Hemoglobin Sodium Potassium Chloride Carbon Dioxide BUN Creatinine Glucose POC Glucose (mg/dL) 593 H ALT Total Protein - Diagnostic Findings Chest x-ray: image reviewed Assessment and Plan Plan: Acute cardiopulmonary arrest, most likely due to a combination of fluid overload and hyperkalemia that started off with bradycardia and subsequently the patient went into asystole. The patient received CPR, epinephrine and atropine and calcium gluconate and bicarbonate and insulin during the time of the resus citation. Downtime was approximately 5 minutes and there was return of [place] circulation. Currently intubated on a mechanical ventilator and the patient is currently on propofol for sedation and she is also on norepinephrine for blood pressure control. Severe bradycardia followed by cardiac arrest, likely secondary to acute hyperkalemia, awaiting dialysis. Heart rate currently sinus at the rate of 60 without any acute changes to suggest hyperkalemia Hypotension post cardiac arrest, currently on norepinephrine infusion running at 0.2 mics respiratory program per minute Acute hypoxic respiratory failure, currently intubated on a mechanical ventilator, chest x-rays consistent with pulmonary edema Acute pulmonary edema/volume overload End-stage renal disease to receive hemodialysis on Monday Diabetes mellitus type 1 with brittle blood sugar control. Current blood sugar is quite elevated in the 500s range Hypertension and hypertensive heart disease. Ejection fraction of around 50- 55%. Moderate increase in the LV wall thickness related to chronic hypertension there was also mild pulmonary hypertension. Previous history of hyperkalemia requiring hemodialysis. The potassium level improved and the patient potassium normalized post dialysis , the patient was taken off lisinopril due to concerns of episodic hyperkalemia. Chronic anemia Previous hospitalization for hypertensive emergency due to missed dialysis Recent moderate circumferential pericardial effusion Recent hospitalization for bilateral pneumonia, discharged on 09/06/2021 History of CVA/TIA History of COVID-19 infection in May 2021 Plan Keep the patient sedated for now and continue with propofol Increase the PEEP up to 10 and keep the FiO2 at 100% and monitor the pulse ox and oxygenation. Continue tidal volume of 400 with a rate of 20 Monitor the blood gases Continue norepinephrine infusion for blood pressure control and titrated to a mean arterial pressure above 60 Start the patient on an insulin drip for blood sugar control, current blood sugars above 500 and the patient is a very brittle diabetic Emergent dialysis for pulmonary edema and hyperkalemia Repeat potassium level Hold all antihypertensive medications Echocardiogram to be repeated cardiology consult, Hold Coreg CT brain once stable Continue to follow. Time with Patient: Greater than 30
[2022-02-16] MEDS ORDERED: CALCIUM GLUCONATE IN NACL 1 GM in SALINE 1 100ML.BAG IVPB ONE (15:11)
[2022-02-16] MEDS ORDERED: DEXTROSE 50% SYRINGE 50 ML IVP PRN ×3 (15:13→19:46)
[2022-02-16] MEDS ORDERED: INSULIN REGULAR 100 UNIT in SODIUM CHLORIDE 0.9% 100 ML IV SCH (15:15)
[2022-02-16 15:41] LABS: Glucose,Whole Blood 497 mg/dL (70-110)
--- NOTE | 2022-02-16 16:24 | P.PCN ---
Date of Procedure: 02/16/22 Preoperative Diagnosis: Cardiac arrest Postoperative Diagnosis: Cardiac arrest Procedure(s) Performed: Insertion of an arterial line Anesthesia: local Surgeon: Adriana Ordonez Estimated Blood Loss (ml): 0 Pathology: none sent Condition: critical Disposition: ICU Operative Findings: Indication: Hemodynamic monitoring. A time-out was completed verifying correct patient, procedure, site, positioning, and implant(s) or special equipment if applicable. Allens test was performed to ensure adequate perfusion. The patients right wrist was prepped and draped in sterile fashion. 1% Lidocaine was used to anesthetize the area. An 18G Arrow arterial line was introduced into the right radial artery. The catheter was threaded over the guide wire and the needle was removed with appropriate pulsatile blood return. Blood loss was minimal. The catheter was then sutured in place to the skin and a sterile dressing applied. Perfusion to the extremity distal to the point of catheter insertion was checked and found to be adequate. The patient tolerated the procedure well and there were no complications.
[2022-02-16] MEDS: HYDROmorphone 1 MG/ML 1 ML SYRINGE IVP PRN ×2 (16:37→20:37)
[2022-02-16 16:54] LABS: Glucose,Whole Blood 196 mg/dL (70-110)
[2022-02-16] MEDS ORDERED: hydrALAZINE HCL 20 MG/ML 1 ML VIAL IVP PRN (17:11)
[2022-02-16 18:02] LABS: Glucose,Whole Blood 111 mg/dL (70-110)
[2022-02-16 19:13] LABS: Glucose,Whole Blood 94 mg/dL (70-110)
[2022-02-16 19:16] LABS: ABG Base Excess 6.6 mmol/L; ABG HCO3 31 mmol/L (21-25); ABG Hematocrit 28 % (34.0-46.0); ABG Oxygen Saturation 89.3 % (94-97); ABG PCO2 50 mmHg (35-45); ABG PH 7.41 (7.35-7.45); ABG TCO2 33 mmol/L (19-24); Allen Test Performed? Yes
[2022-02-16 19:18] LABS: ABG PO2 58 mmHg (83-108)
[2022-02-16] MEDS ORDERED: LORazepam 1 MG/0.5 ML VIAL IV STA (19:22)
[2022-02-16] MEDS ORDERED: cloNIDine HCL 0.2 MG TAB PO STA (19:45)
[2022-02-16 19:47] LABS: Glucose,Whole Blood 113 mg/dL (70-110)
[2022-02-16] MEDS ORDERED: levETIRAcetam IV 1,000 MG in SALINE 1 100ML.BAG IVPB SCH (20:00)
[2022-02-16] MEDS: INSULIN ASPART (NovoLOG) 100 UNIT/ML VIAL SQ SCH (20:30)
[2022-02-16] MEDS: CLEVIDIPINE BUTYRATE 25 MG in EMPTY BAG 1 BAG IV SCH ×2 (21:00→23:35)
[2022-02-16 21:59] LABS: ABG Base Excess 5.6 mmol/L; ABG HCO3 30 mmol/L (21-25); ABG Hematocrit 25 % (34.0-46.0); ABG Oxygen Saturation 98.9 % (94-97); ABG PCO2 42 mmHg (35-45); ABG PH 7.46 (7.35-7.45); ABG PO2 >400 mmHg (83-108); ABG TCO2 31 mmol/L (19-24); Allen Test Performed? Yes
--- NOTE | 2022-02-16 23:07 | CT ---
EXAMINATION TYPE: CT brain wo con DATE OF EXAM: 02/16/2022 COMPARISON: 10/03/2021 HISTORY: seizure like activity CT DLP: 1080.4 mGycm Automated exposure control for dose reduction was used. Images of the brain obtained without contrast. There is enlargement of the ventricles. There is no mass effect nor midline shift. No sign of intracr anial hemorrhage. Calvarium is intact. No evidence of cerebral edema. Skull base is intact. There is normal aeration of the mastoid sinuses. IMPRESSION: There is hydrocephalus similar to the old exam. No acute intracranial abnormality.
[2022-02-17 00:03] LABS: Glucose,Whole Blood 226 mg/dL (70-110)
[2022-02-17] MEDS: INSULIN ASPART (NovoLOG) 100 UNIT/ML VIAL SQ SCH ×6 (00:34→19:46)
[2022-02-17] MEDS: HYDROmorphone 1 MG/ML 1 ML SYRINGE IVP PRN ×4 (02:08→21:17)
[2022-02-17] MEDS: CLEVIDIPINE BUTYRATE 25 MG in EMPTY BAG 1 BAG IV SCH ×3 (02:22→07:05)
[2022-02-17] MEDS: ACETAMINOPHEN TAB 325 MG TAB PO PRN ×3 (04:06→19:49)
[2022-02-17 04:09] LABS: Glucose,Whole Blood 236 mg/dL (70-110)
[2022-02-17 05:59] LABS: ABG Base Excess 4.6 mmol/L; ABG HCO3 29 mmol/L (21-25); ABG Hematocrit 24 % (34.0-46.0); ABG Oxygen Saturation 99.8 % (94-97); ABG PCO2 41 mmHg (35-45); ABG PH 7.46 (7.35-7.45); ABG PO2 199 mmHg (83-108); ABG TCO2 30 mmol/L (19-24); Allen Test Performed? Yes
[2022-02-17 06:23] LABS: Calcium 9.7 mg/dL (8.4-10.2); Magnesium 1.9 mg/dL (1.6-2.3); Potassium 3.5 mmol/L (3.5-5.1)
[2022-02-17] MEDS ORDERED: SODIUM CHLORIDE 0.9% IV ONE (08:00)
[2022-02-17] MEDS ORDERED: POTASSIUM PHOSPHATE IV ONE (08:00)
--- NOTE | 2022-02-17 08:11 | P.PN ---
Subjective Progress Note Date: 02/17/22 31-year-old female patient with multiple medical present comorbidities. The patient is known to have type 1 diabetes mellitus, and the patient has end-stage renal disease and the patient is on hemodialysis. Blood sugar control with that over the years and the patient has had previous hospitalizations for pneumonia, missed dialysis, she is for hyperkalemia and fluid overload and pulmonary edema. She has also also been treated for hypertensive emergencies. The patient brought into the emergency department today as the patient was feeling lightheaded and dizzy and very weak. The patient was due for dialysis today. She is undergoing dialysis today. The patient was found to be bradycardic by EM S and the patient's heart rate was in the low 40s. She was brought into the emergency and she had a blood pressure 75/45 with a pulse ox of 90% on room air. Heart rate subsequently slowed down further went down to the 30s and following that the patient was feeling anxious and jittery denies having any chest pain. Subsequently, she goes into a cardiac arrest, asystole and the patient was resuscitated with a downtime estimated to be around 10 minutes. The patient went into asystole and CPR was initiated immediately. She did require intubation. I was also told that this was a difficult intubation as the patient has copious amount of frothy colored material in the posterior oropharynx which was suctioned out. During the course of her treatment, the patient was given hyperkalemia cocktail. The blood work came back with a sodium level of 128, potassium level was 5 and the patient had a chloride of 89 with a bicarb of 20 with a 53 and a creatinine of 7.52. The patient had a flexor count of 4.4 hemoglobin 8.7 and a platelet count of 175. The blood gases on 100% FiO2 showed a pH of 7.36 with a pCO2 of 38 and pO2 of 52. This was the blood gases was done immediately after intubation. The patient is currently in the intensive care unit on assist-control mode of mechanical ventilation at the rate of 20, tidal volume of 400, FiO2 of 100% with a PEEP of 8. Current pulse ox is 96%. The patient is sedated with propofol which is running at 50 mcg/kg per minute. The patient was also started on pressors for hypotension. Norepinephrine is running at 0.18 mcg/kg per minute. Post intubation chest x-ray showed cardiomegaly and pulmonary edema. ET tube is in a good location. The patient also has a orogastric tube which is in good location. She is arousable and she response to stimulation and she is moving all 4 extremities without any limitation.. On her blood work, the patient has a white cell count of 4.1 with a hemoglobin of 8.7 and a platelet count of 175. Her proBNP level was 49,200. Troponin was negative. Most recent blood sugar is at 562. 02/17/2022, seeing the patient for a follow-up. The patient remains intubated on a mechanical ventilator. The patient remains sedated on propofol which is running at 75 mcg/kg per minute. Yesterday late afternoon, the patient was felt to have some seizure like activity. This was not certain as the patient was hav ing some jerky body movements. The patient was given a total of 4 L of IV Ativan in follow-up. The patient was started on Keppra. CAT scan of the brain was done that showed hydrocephalus which is chronic and there is no acute abnormalities noted. No evidence of any bleeding. Note that the patient had a brief cardiac arrest due to asystole. In any rate, the patient is currently hypertensive and she is in a normal sinus rhythm. She was started on side effects after trying various antihypertensive medication and the patient is currently on Celebrex running at a dose of 8 mg per minute. Blood pressure is under better control for now with her most recent blood pressure being 138/57. The patient underwent hemodialysis yesterday with a total of 4 L of ultrafiltration. The patient remains on a mechanical ventilator. On today's evaluation of assist-control mode at the rate of 20 with a tidal volume of 400 and FiO2 of 60% with a PEEP of 12. Blood gases showed improvement in oxygenati on and the pO2 is 199. PH is at 7.46 with a pCO2 of 41. As such, there is improvement in oxygenation. There is improvement and acid base status. The patient's chest x-ray from today shows cardiomegaly. There is significant resolution of the pulmonary edema discussed earlier in the ET tube is in a good location. The patient also has a orogastric tube which is in great location. Potassium level is down to 3.5. Total of 146. Blood sugar today is 152. The patient was placed on an insulin drip yesterday and subsequently her blood sugars dropped and she was taken off insulin drip and currently she is on sliding scale insulin coverage every 4 hours. She remains nothing by mouth. Flores catheter is in place. Urine output is minimal. Calcium level is at 9.7. Phosphorus level is low at 1.0 and magnesium is at 1.9. In terms of her CBC, the white cell count from yesterday was 4.1 with a bilirubin of 8.7. Objective - Vital Signs Vital signs: Vital Signs Temp 102.6 F H 02/17/22 06:00 Pulse 80 02/17/22 07:00 Resp 20 02/17/22 07:00 BP 163/86 02/17/22 04:00 Pulse Ox 100 02/17/22 07:00 FiO2 60 02/17/22 07:40 Intake & Output 02/16/22 02/17/22 02/17/22 18:59 06:59 18:59 Intake Total 295.278 835.684 108.124 Output Total 0 4000 0 Balance 295.278 -3164.316 108.124 Weight 57.606 kg 53.6 kg Intake: IV 320 20 0.9 @ 20ml/hr 220 20 levETIRAcetam IV 1,000 mg 100 In Saline 1 100ml.bag @ 400 mls/hr IVPB Q12H [facility] Rx#:[id number] Intake, IV Titration 295.278 215.684 88.124 Amount Calcium Gluconate in NaCl 100 1 gm In Saline 1 100ml. bag @ 100 mls/hr IVPB ONCE ONE Rx#:[id number] Clevidipine Butyrate 25 131.233 64.8 mg In Empty Bag 1 bag @ 1 MG/HR 2 mls/hr IV .Q24H [facility] Rx#:[id number] Insulin Regular 100 unit 10.395 In Sodium Chloride 0.9% 100 ml @ Titrate IV .Q0M [facility] Rx#:[id number] Norepinephrine 4 mg In 98.508 Sodium Chloride 0.9% 250 ml @ 0.05 MCG/KG/MIN 10. 974 mls/hr IV .Q23H9M ONE Rx#:[id number] Sodium Chloride 0.9% 1, 70 20 000 ml @ 20 mls/hr IV . Q24H [facility] Rx#:[id number] propofoL 1,000 mg In 16.375 64.451 23.324 Empty Bag 1 bag @ 5 MCG/ KG/MIN 1.428 mls/hr IV . Q24H [facility] Rx#:[id number] Hemodialysis 300 Output: Urine 0 0 0 Hemodialysis 4000 Other: Voiding Method Indwelling Catheter Indwelling Catheter ABP, PAP, CO, CI - Last Documented Arterial Blood Pressure 148/62 - Exam GENERAL EXAM: Alert, pleasant, 30-year-old white female, resting in bed, the patient intubated on mechanical ventilator. The patient has an orogastric and orotracheal tube. The patient is currently intubated. The patient is sedated with propofol. HEAD: Normocephalic/atraumatic. EYES: Normal reaction of pupils, equal size. Conjunctiva pink, sclera white. NOSE: Clear with pink turbinates. THROAT: No erythema or exudates. NECK: No masses, no JVD, no thyroid enlargement, no adenopathy. CHEST: No chest wall deformity. Symmetrical expansion. LUNGS: Equal air entry with no crackles, wheeze, rhonchi or dullness. CVS: Regular rate and rhythm, normal S1 and S2, no gallops, no murmurs, no rubs ABDOMEN: Soft, nontender. No hepatosplenomegaly, normal bowel sounds, no gu arding or rigidity. EXTREMITIES: No clubbing, no edema, no cyanosis, 2+ pulses and upper and lower e xtremities. left Arm AV fistula MUSCULOSKELETAL: Muscle strength and tone normal. SPINE: No scoliosis or deformity SKIN: No rashes CENTRAL NERVOUS SYSTEM: The patient is currently on propofol and the patient is sedated. The patient is withdrawing to painful stim additional 4 extremities. No facial asymmetry. Positive cough and a gag. Pupils around 8 mm in size, equal and symmetrical he is sluggish and reactive to light. No nystagmus no clonus. No Babinski. - Labs CBC & Chem 7: 02/16/22 11:15 02/17/22 05:53 Labs: Abnormal Lab Results - Last 24 Hours (Table) 02/16/22 02/16/22 02/16/22 Range/Units 11:15 11:15 12:14 RBC 3.05 L (3.80-5.40) m/uL Hgb 8.7 L (11.4-16.0) gm/dL Hct 25.6 L (34.0-46.0) % Lymphocytes # 0.5 L (1.0-4.8) k/uL ABG pH (7.35-7.45) ABG pCO2 (35-45) mmHg ABG pO2 52 L* (83-108) mmHg ABG HCO3 (21-25) mmol/L ABG Total CO2 (19-24) mmol/L ABG O2 Saturation 85.4 L (94-97) % ABG Hematocrit 23 L (34.0-46.0) % Hemoglobin 7.5 L (11.4-16.0) gm/dL Sodium 128 L (137-145) mmol/L Potassium 6.5 H* (3.5-5.1) mmol/L Chloride 89 L (98-107) mmol/L Carbon Dioxide 20 L (22-30) mmol/L BUN 53 H (7-17) mg/dL Creatinine 7.52 H* (0.52-1.04) mg/dL Glucose 453 H (74-99) mg/dL POC Glucose (mg/dL) (70-110) mg/dL Hemoglobin A1c (0.0-6.0) % Phosphorus (2.5-4.5) mg/dL ALT 66 H (4-34) U/L Total Protein 5.5 L (6.3-8.2) g/dL 02/16/22 02/16/22 02/16/22 Range/Units 13:13 14:03 15:39 RBC (3.80-5.40) m/uL Hgb (11.4-16.0) gm/dL Hct (34.0-46.0) % Lymphocytes # (1.0-4.8) k/uL ABG pH (7.35-7.45) ABG pCO2 (35-45) mmHg ABG pO2 (83-108) mmHg ABG HCO3 (21-25) mmol/L ABG Total CO2 (19-24) mmol/L ABG O2 Saturation (94-97) % ABG Hematocrit (34.0-46.0) % Hemoglobin (11.4-16.0) gm/dL Sodium (137-145) mmol/L Potassium (3.5-5.1) mmol/L Chloride (98-107) mmol/L Carbon Dioxide (22-30) mmol/L BUN (7-17) mg/dL Creatinine (0.52-1.04) mg/dL Glucose (74-99) mg/dL POC Glucose (mg/dL) 593 H 562 H 497 H (70-110) mg/dL Hemoglobin A1c (0.0-6.0) % Phosphorus (2.5-4.5) mg/dL ALT (4-34) U/L Total Protein (6.3-8.2) g/dL 02/16/22 02/16/22 02/16/22 Range/Units 15:45 16:52 18:00 RBC (3.80-5.40) m/uL Hgb (11.4-16.0) gm/dL Hct (34.0-46.0) % Lymphocytes # (1.0-4.8) k/uL ABG pH (7.35-7.45) ABG pCO2 (35-45) mmHg ABG pO2 (83-108) mmHg ABG HCO3 (21-25) mmol/L ABG Total CO2 (19-24) mmol/L ABG O2 Saturation (94-97) % ABG Hematocrit (34.0-46.0) % Hemoglobin (11.4-16.0) gm/dL Sodium (137-145) mmol/L Potassium (3.5-5.1) mmol/L Chloride (98-107) mmol/L Carbon Dioxide (22-30) mmol/L BUN (7-17) mg/dL Creatinine (0.52-1.04) mg/dL Glucose (74-99) mg/dL POC Glucose (mg/dL) 196 H 111 H (70-110) mg/dL Hemoglobin A1c 10.5 H (0.0-6.0) % Phosphorus (2.5-4.5) mg/dL ALT (4-34) U/L Total Protein (6.3-8.2) g/dL 02/16/22 02/16/22 02/16/22 Range/Units 19:12 19:45 21:56 RBC (3.80-5.40) m/uL Hgb (11.4-16.0) gm/dL Hct (34.0-46.0) % Lymphocytes # (1.0-4.8) k/uL ABG pH 7.46 H (7.35-7.45) ABG pCO2 50 H (35-45) mmHg ABG pO2 58 L* >400 H (83-108) mmHg ABG HCO3 31 H 30 H (21-25) mmol/L ABG Total CO2 33 H 31 H (19-24) mmol/L ABG O2 Saturation 89.3 L 98.9 H (94-97) % ABG Hematocrit 28 L 25 L (34.0-46.0) % Hemoglobin 9.1 L 8.2 L (11.4-16.0) gm/dL Sodium (137-145) mmol/L Potassium (3.5-5.1) mmol/L Chloride (98-107) mmol/L Carbon Dioxide (22-30) mmol/L BUN (7-17) mg/dL Creatinine (0.52-1.04) mg/dL Glucose (74-99) mg/dL POC Glucose (mg/dL) 113 H (70-110) mg/dL Hemoglobin A1c (0.0-6.0) % Phosphorus (2.5-4.5) mg/dL ALT (4-34) U/L Total Protein (6.3-8.2) g/dL 02/17/22 02/17/22 02/17/22 Range/Units 00:02 04:07 05:53 RBC (3.80-5.40) m/uL Hgb (11.4-16.0) gm/dL Hct (34.0-46.0) % Lymphocytes # (1.0-4.8) k/uL ABG pH (7.35-7.45) ABG pCO2 (35-45) mmHg ABG pO2 (83-108) mmHg ABG HCO3 (21-25) mmol/L ABG Total CO2 (19-24) mmol/L ABG O2 Saturation (94-97) % ABG Hematocrit (34.0-46.0) % Hemoglobin (11.4-16.0) gm/dL Sodium 146 H (137-145) mmol/L Potassium (3.5-5.1) mmol/L Chloride (98-107) mmol/L Carbon Dioxide (22-30) mmol/L BUN 25 H (7-17) mg/dL Creatinine 4.33 H (0.52-1.04) mg/dL Glucose 152 H (74-99) mg/dL POC Glucose (mg/dL) 226 H 236 H (70-110) mg/dL Hemoglobin A1c (0.0-6.0) % Phosphorus 1.0 L* (2.5-4.5) mg/dL ALT (4-34) U/L Total Protein (6.3-8.2) g/dL 02/17/22 Range/Units 05:56 RBC (3.80-5.40) m/uL Hgb (11.4-16.0) gm/dL Hct (34.0-46.0) % Lymphocytes # (1.0-4.8) k/uL ABG pH 7.46 H (7.35-7.45) ABG pCO2 (35-45) mmHg ABG pO2 199 H (83-108) mmHg ABG HCO3 29 H (21-25) mmol/L ABG Total CO2 30 H (19-24) mmol/L ABG O2 Saturation 99.8 H (94-97) % ABG Hematocrit 24 L (34.0-46.0) % Hemoglobin 7.7 L (11.4-16.0) gm/dL Sodium (137-145) mmol/L Potassium (3.5-5.1) mmol/L Chloride (98-107) mmol/L Carbon Dioxide (22-30) mmol/L BUN (7-17) mg/dL Creatinine (0.52-1.04) mg/dL Glucose (74-99) mg/dL POC Glucose (mg/dL) (70-110) mg/dL Hemoglobin A1c (0.0-6.0) % Phosphorus (2.5-4.5) mg/dL ALT (4-34) U/L Total Protein (6.3-8.2) g/dL Assessment and Plan Plan: Acute cardiopulmonary arrest, most likely due to a combination of fluid overload and hyperkalemia that started off with bradycardia and subsequently the patient went into asystole. The patient received CPR, epinephrine and atropine and calcium gluconate and bicarbonate and insulin during the time of the resuscitation. Downtime was approximately 5 minutes and there was return of Spon circulation. Currently intubated on a mechanical ventilator and the patient is currently on propofol for sedation hemodynamically the patient is stable. The patient was hypotensive post cardiac arrest and she was initially on norepinephrine infusion and subsequently norepinephrine infusion was discontinued. In fact she is hypertensive at this point in time and she is on Celebrex drip. Acute hypoxic respiratory failure, oxygenation improved. Please refer to the most recent blood. In the chest x-ray Severe bradycardia followed by cardiac arrest, likely secondary to acute hyperkalemia, recovered and the patient is currently in normal sinus rhythm. Note that the patient was taking Coreg and clonidine which could've also contributed to her bradycardia. Hypotension post cardiac arrest, recovered Acute hypoxic respiratory failure, currently intubated on a mechanical ventilator, chest x-rays consistent with pulmonary edema, improved Questionable seizure activity. The patient had a CAT scan of the brain that showed hydrocephalus. Patient is currently on Keppra. Neurologist on consult. Acute pulmonary edema/volume overload, improved End-stage renal disease to receive hemodialysis on Monday Diabetes mellitus type 1 with brittle blood sugar control. Patient is currently on a scale insulin coverage. Hypertension and hypertensive heart disease. Ejection fraction of around 50- 55%. Moderate increase in the LV wall thickness related to chronic hypertension there was also mild pulmonary hypertension. Previous history of hyperkalemia requiring hemodialysis. The potassium level improved and the patient potassium normalized post dialysis , the patient was taken off lisinopril due to concerns of episodic hyperkalemia. Chronic anemia Previous hospitalization for hypertensive emergency due to missed dialysis Recent moderate circumferential pericardial effusion Recent hospitalization for bilateral pneumonia, discharged on 09/06/2021 History of CVA/TIA History of COVID-19 infection in May 2021 Plan Keep the patient sedated for now and continue with propofol Continue [facility] EEG was done Monitor for any seizure activity Would like to get a clearance from neurology regarding the possibility of ongoing seizure and if not we can start our weaning process Change the PEEP down to 8 and FiO2 down to 50%. FiO2 can be dropped down to 40% further into saturation remains above 90% Continue Celebrex drip for now We will start the patient hydralazine oral 100 mg by mouth 3 times a day, avoid beta blockers and clonidine for now due to concerns of bradycardia. Will start losartan 100 mg by mouth daily and add Procardia XL 120 mg by mouth daily and Minipress 5 mg by mouth twice a day and gradually wean off the lateral proximal drip. Another session of dialysis today. Last session was done yesterday with a total of 4 L of fluid removed Echocardiogram to be repeated cardiology consult, Continue to follow. Critically care evaluation, more than 30 minutes. Time with Patient: Greater than 30
--- NOTE | 2022-02-17 08:19 | XR ---
EXAMINATION TYPE: XR chest 1V portable DATE OF EXAM: 02/17/2022 COMPARISON: Chest x-ray 02/16/2022 HISTORY: Intubated TECHNIQUE: Single frontal view of the chest is obtained. FINDINGS: Endotracheal tube and NG tube are overlying appropriate positions. No evident pneumothorax or pleural effusion. Bilateral airspace disease is improved, there is some mixed interstitial and ai rspace disease persisting. There are overlying artifacts. Cardiac mediastinal silhouette is within no rmal limits. IMPRESSION: There is improvement in patient's pulmonary edema
[2022-02-17] MEDS ORDERED: PANTOPRAZOLE 40 MG/10 ML VIAL IVP SCH (09:00)
[2022-02-17] MEDS ORDERED: levETIRAcetam IV 500 MG in SODIUM CHLORIDE 0.9% 100 ML IVPB SCH (09:00)
[2022-02-17 09:08] LABS: Glucose,Whole Blood 111 mg/dL (70-110)
--- NOTE | 2022-02-17 10:11 | P.CNNES ---
History of Present Illness Consult date: 02/17/22 Requesting physician: Adraina Ordonez Reason for Consult: seizure like activity History of Present Illness: Patient is a 31-year-old female with history of diabetes, end-stage renal disease, on hemodialysis, often noncompliance with hemodialysis, came to the hospital by ambulance yesterday at 10:45 AM for dizziness and generalized weakness. EMS flow sheet not available in the chart. According to the electronic records, patient was found to be bradycardic by EMS in the patient's heart rate was in the low 40s. Her blood pressure in the ER was 75/45 with pulse ox of 90% on room air. Heart rate subsequently slowed down further to the 30s and then she went into a cardiac arrest, asystole and the patient was resu scitated with a downtime estimated to be around 10 minutes. She was intubated and placed on mechanical ventilation. Patient was noted to be hyperkalemic and was given treatment for hyperkalemia. Patient was placed in the ICU. She was noted to be fluid overload, she was started on hemodialysis. Her blood sugar was in the 400. She was started on insulin drip. Patient was initially hypotensive and started on Levophed. However her blood pressure subsequently went up required use of clavipex. Yesterday patient was noted to have some seizure-like activity for which she was loaded on Keppra with 1000 mg IV loading dose and also placed on 1000 mg twice a day by ICU attending. Neurology was consulted. I spoke to patient's nurse on the phone in detail. Ordered a stat EEG for the morning. Also adjusted the dose of Keppra for renal failure patient. Vital signs arrival blood pressure 83/50, pulse rate 39 temperature 98.1. Patient was hypotensive but then the blood pressure went up. Patient did spike temperature of 101 and 102.6 last night. Blood tests shows normal WBC hemoglobin 8.7, platelets are normal. ABG with pH 7.36, pCO2 38, due to 52 and saturation 85.4%. Sodium was 128 potassium 6.5, BUN 53 creatinine 7.52, AST is normal, ALT mildly elevated at 66. Troponin negative. Hemoglobin A1c 10.5. CT head showed hydrocephalus, similar to old exam. No acute process. I personally reviewed CT head, agree with the findings. 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 2-D echo from 08/27/2021 revealed normal left ventricular size, severe concentric LVH, EF is 55-60% trace MR, severe TR, severe pulmonary hypertension. Patient at present on propofol 75 g per program per minute. Per nurse report, if the sedation is decreased, patient starts to become very restless, tries to get out of bed. Review of Systems Spoke to patient's nurse, does not know details about any review of systems. Family members not available. ROS unobtainable: due to endotracheal tube, due to mental status Past Medical History Past Medical History: CVA/TIA, Diabetes Mellitus, Dialysis, Eye Disorder, Hypertension, Renal Disease Additional Past Medical History / Comment(s): ESRD with hemodialysis M/W/F, IDDM type 1, DKA, neuropathy bilateral legs/feet, diabetic retinopathy/legally blind, RLS, gastritis, severe hypokalemia, fluid retention in abdomin/legs. History of Any Multi-Drug Resistant Organisms: None Reported Past Surgical History: Appendectomy, Section, Cholecystectomy Additional Past Surgical History / Comment(s): fistula left arm Past Anesthesia/Blood Transfusion Reactions: No Reported Reaction Past Psychological History: Anxiety, Depression Smoking Status: Never smoker Past Alcohol Use History: None Reported Past Drug Use History: None Reported - Past Family History Mother Family Medical History: Cancer, Hypertension Additional Family Medical History / Comment(s): Thyroid cancer, bipolar Father Family Medical History: Seizure Disorder Additional Family Medical History / Comment(s): Epilepsy Medications and Allergies Home Medications Medication Instructions Recorded Confirmed Type Ergocalciferol (Vitamin D2) 1,250 mcg PO Q30D 04/03/21 02/16/22 History [Drisdol (50,000 Iu)] Isosorbide Mononitrate ER [Imdur] 30 mg PO HS 04/03/21 02/16/22 History carvediloL [Coreg] 25 mg PO BID 04/03/21 02/16/22 History Acetaminophen Tab [Tylenol] 650 mg PO Q6HR PRN #30 tab 04/09/21 02/16/22 Rx Escitalopram [Lexapro] 20 mg PO DAILY 04/17/21 02/16/22 History Glucagon Emergency Kit 1 mg IM ONCE PRN #1 kit 06/15/21 02/16/22 Rx Cyanocobalamin [Vitamin B-12] 1,000 mcg PO DAILY #60 tab 04/11/22 09/21/22 Rx Atorvastatin [Lipitor] 40 mg PO DAILY 30 Days #30 tab 10/13/21 02/16/22 Rx Calcium Acetate [PhosLo] 667 mg PO TID-W/MEALS 30 Days #90 10/13/21 02/16/22 Rx tab Pantoprazole Sodium [Protonix] 20 mg PO BID #30 tab 10/15/21 02/16/22 Rx Albuterol Inhaler [Ventolin Hfa 2 puff INHALATION RT-QID PRN 12/06/21 02/16/22 History Inhaler] Aspirin 81 mg PO DAILY 12/06/21 02/16/22 History Methoxy Peg-Epoetin Beta [Mircera] 200 mcg IVPB Q14D 12/06/21 02/16/22 History NIFEdipine XL [Procardia XL] 120 mg PO DAILY 12/06/21 02/16/22 History LORazepam [Ativan] 1 mg PO TID PRN #90 tab 12/09/21 02/16/22 Rx hydrOXYzine HCL [Atarax] 25 mg PO TID PRN #90 tab 12/09/21 02/16/22 Rx Insulin Aspart [NovoLOG Flexpen] See Protocol SQ TID-W/MEALS 12/21/21 02/16/22 History Insulin Detemir (Levemir) [Levemir] 13 unit SQ HS 12/21/21 02/16/22 History Melatonin [Melatonin Dissolving 10 mg PO HS 12/21/21 02/16/22 History Tablet] hydrALAZINE HCL [Apresoline] 100 mg PO TID 12/21/21 02/16/22 History rOPINIRole HCL [Requip] 1 mg PO HS 12/21/21 02/16/22 History cloNIDine HCL [Catapres] 0.3 mg PO TID PRN #90 tab 12/23/21 02/16/22 Rx Lidocaine-Prilocaine Cream [Emla 1 applic TOPICAL MOWEFR PRN 02/09/22 02/16/22 History Cream 2.5%/2.5%] Losartan Potassium 100 mg PO DAILY 02/09/22 02/16/22 History Prazosin [Minipress] 5 mg PO BID 02/09/22 02/16/22 History buPROPion SR [Wellbutrin SR] 150 mg PO BID 02/09/22 02/16/22 History Allergies Allergy/AdvReac Type Severity Reaction Status Date / Time Fish Containing Products Allergy Rash/Hives Verified 02/16/22 11:28 [Fish] iodine Allergy Anaphylaxis Verified 02/16/22 11:28 Physical Examination - Vital Signs Vital Signs: Vital Signs Temp Pulse Resp BP Pulse Ox FiO2 02/17/22 07:40 60 02/17/22 07:00 80 20 100 02/17/22 06:00 102.6 F H 86 20 99 02/17/22 05:00 85 20 100 02/17/22 04:00 101.8 F H 84 20 163/86 100 60 02/17/22 03:19 60 02/17/22 03:00 85 27 H 157/97 99 02/17/22 02:00 87 20 100 02/17/22 01:00 83 20 150/78 100 02/17/22 00:30 81 20 150/78 99 02/17/22 00:00 98.1 F 81 20 99 60 02/16/22 23:59 81 20 142/76 99 02/16/22 23:40 60 02/16/22 23:30 80 20 142/76 99 02/16/22 23:00 79 20 155/85 98 02/16/22 22:20 60 02/16/22 22:10 60 02/16/22 22:00 81 81 H 178/97 99 02/16/22 21:30 82 20 203/106 99 02/16/22 21:00 82 20 232/120 99 02/16/22 20:30 80 20 226/118 99 02/16/22 20:00 98.5 F 79 20 208/109 97 100 02/16/22 19:30 80 22 210/101 98 02/16/22 19:08 100 02/16/22 19:00 78 25 H 90 L 02/16/22 18:30 72 22 94 L 02/16/22 18:00 67 20 154/93 99 100 02/16/22 17:30 67 23 181/108 100 02/16/22 17:00 68 22 176/102 100 02/16/22 16:30 68 81 H 168/89 78 L 02/16/22 16:00 97.5 F L 65 22 156/87 95 100 02/16/22 15:30 60 31 H 145/83 80 L 02/16/22 15:25 100 02/16/22 15:00 60 28 H 144/71 96 02/16/22 14:30 58 L 29 H 134/69 95 100 02/16/22 14:00 94 F L 53 L 27 H 115/57 53 L 100 02/16/22 13:35 51 L 20 103/51 90 L 02/16/22 13:21 49 L 20 94/46 02/16/22 12:41 44 L 20 84/38 02/16/22 12:25 41 L 20 76/36 02/16/22 12:05 38 L 20 02/16/22 12:00 41 L 71/46 02/16/22 11:45 52 L 20 02/16/22 11:41 100 02/16/22 11:25 53 L 21 90/58 89 L 02/16/22 11:10 100 02/16/22 10:45 98.1 F 39 L 20 83/50 96 Intake and Output 02/16/22 02/17/22 02/17/22 22:59 06:59 14:59 Intake Total 712.897 327.479 108.124 Output Total 4000 0 0 Balance -3287.103 327.479 108.124 Intake: IV 160 160 20 0.9 @ 20ml/hr 60 160 20 levETIRAcetam IV 1,000 mg 100 In Saline 1 100ml.bag @ 400 mls/hr IVPB Q12H [facility] Rx#:[id number] Intake, IV Titration 252.897 167.479 88.124 Amount Calcium Gluconate in NaCl 100 1 gm In Saline 1 100ml. bag @ 100 mls/hr IVPB ONCE ONE Rx#:[id number] Clevidipine Butyrate 25 4.500 126.733 64.8 mg In Empty Bag 1 bag @ 1 MG/HR 2 mls/hr IV .Q24H [facility] Rx#:[id number] Insulin Regular 100 unit 10.395 In Sodium Chloride 0.9% 100 ml @ Titrate IV .Q0M [facility] Rx#:[id number] Norepinephrine 4 mg In 8.779 Sodium Chloride 0.9% 250 ml @ 0.05 MCG/KG/MIN 10. 974 mls/hr IV .Q23H9M ONE Rx#:[id number] Sodium Chloride 0.9% 1, 90 000 ml @ 20 mls/hr IV . Q24H [facility] Rx#:[id number] propofoL 1,000 mg In 39.223 40.746 23.324 Empty Bag 1 bag @ 5 MCG/ KG/MIN 1.428 mls/hr IV . Q24H [facility] Rx#:[id number] Hemodialysis 300 Output: Urine 0 0 0 Hemodialysis 4000 Other: Voiding Method Indwelling Catheter Indwelling Catheter Weight 53.6 kg ABP, PAP, CO, CI - Last 8 Hours Arterial Blood Pressure 148/62 Arterial Blood Pressure 156/60 Arterial Blood Pressure 153/62 Arterial Blood Pressure 160/65 Arterial Blood Pressure 162/62 Arterial Blood Pressure 156/59 Arterial Blood Pressure 162/62 Patient is a young female, who is intubated on mechanical ventilation. Patient is sedated on propofol 75 mcg/kg/m. Patient is sedated. On cranial nerve examination, pupils are quite large, about 6 mm, not clearly reacting. Oculocephalics are minimally present. Corneals absent. Patient does have a cough, gag reflexes. She is breathing over the ventilator. Per nurse report, when the sedation is decreased, she becomes very restless, moves all 4 extremities. On muscle strength testing, exam limited because patient's sedation. Deep tendon reflexes are symmetric 1+ to 2 in the upper limbs, 3 at the knees, plantars are upgoing bilaterally. Sensory to touch or pain cannot be assessed because patient on high-dose sedation. Cerebellar function and gait cannot be assessed. On general examination, there is no carotid bruit or murmur, S1-S2 audible. Chest is clear on consultation. Abdomen is soft nontender. No organomegaly, bowel sounds present. Peripheral pulses are present. Patient is slightly tremulous. No obvious seizure-like activity noted. Results - Laboratory Findings CBC and BMP: 02/16/22 11:15 02/17/22 05:53 Abnormal Lab Findings: Abnormal Labs 02/16/22 02/16/22 02/16/22 11:15 11:15 12:14 RBC 3.05 L Hgb 8.7 L Hct 25.6 L Lymphocytes # 0.5 L ABG pH ABG pCO2 ABG pO2 52 L* ABG HCO3 ABG Total CO2 ABG O2 Saturation 85.4 L ABG Hematocrit 23 L Hemoglobin 7.5 L Sodium 128 L Potassium 6.5 H* Chloride 89 L Carbon Dioxide 20 L BUN 53 H Creatinine 7.52 H* Glucose 453 H POC Glucose (mg/dL) Hemoglobin A1c Phosphorus ALT 66 H Total Protein 5.5 L 02/16/22 02/16/22 02/16/22 13:13 14:03 15:39 RBC Hgb Hct Lymphocytes # ABG pH ABG pCO2 ABG pO2 ABG HCO3 ABG Total CO2 ABG O2 Saturation ABG Hematocrit Hemoglobin Sodium Potassium Chloride Carbon Dioxide BUN Creatinine Glucose POC Glucose (mg/dL) 593 H 562 H 497 H Hemoglobin A1c Phosphorus ALT Total Protein 02/16/22 02/16/22 02/16/22 15:45 16:52 18:00 RBC Hgb Hct Lymphocytes # ABG pH ABG pCO2 ABG pO2 ABG HCO3 ABG Total CO2 ABG O2 Saturation ABG Hematocrit Hemoglobin Sodium Potassium Chloride Carbon Dioxide BUN Creatinine Glucose POC Glucose (mg/dL) 196 H 111 H Hemoglobin A1c 10.5 H Phosphorus ALT Total Protein 02/16/22 02/16/22 02/16/22 19:12 19:45 21:56 RBC Hgb Hct Lymphocytes # ABG pH 7.46 H ABG pCO2 50 H ABG pO2 58 L* >400 H ABG HCO3 31 H 30 H ABG Total CO2 33 H 31 H ABG O2 Saturation 89.3 L 98.9 H ABG Hematocrit 28 L 25 L Hemoglobin 9.1 L 8.2 L Sodium Potassium Chloride Carbon Dioxide BUN Creatinine Glucose POC Glucose (mg/dL) 113 H Hemoglobin A1c Phosphorus ALT Total Protein 02/17/22 02/17/22 02/17/22 00:02 04:07 05:53 RBC Hgb Hct Lymphocytes # ABG pH ABG pCO2 ABG pO2 ABG HCO3 ABG Total CO2 ABG O2 Saturation ABG Hematocrit Hemoglobin Sodium 146 H Potassium Chloride Carbon Dioxide BUN 25 H Creatinine 4.33 H Glucose 152 H POC Glucose (mg/dL) 226 H 236 H Hemoglobin A1c Phosphorus 1.0 L* ALT Total Protein 02/17/22 05:56 RBC Hgb Hct Lymphocytes # ABG pH 7.46 H ABG pCO2 ABG pO2 199 H ABG HCO3 29 H ABG Total CO2 30 H ABG O2 Saturation 99.8 H ABG Hematocrit 24 L Hemoglobin 7.7 L Sodium Potassium Chloride Carbon Dioxide BUN Creatinine Glucose POC Glucose (mg/dL) Hemoglobin A1c Phosphorus ALT Total Protein Assessment and Plan Assessment: * Acute cardiopulmonary arrest, likely due to underlying cardiopulmonary/renal/metabolic condition. Downtime reported about 5 minutes. Patient on high-dose sedation at this time. Exam is limited. * Seizure-like activity noted by the ICU staff. Patient started on Keppra. At present patient is tremulous, likely metabolic. No seizure-like activity noticed at this time. * Abnormal CT head, with evidence of communicating hydrocephalus, likely chronic. No change from previous CT head. * Hyperkalemia, resolved * Acute pulmonary edema/volume overload * End-stage renal disease, on hemodialysis Monday. * Diabetes type 1, noncompliant with medication. Came with uncontrolled blood sugar. * Hypertension * Chronic anemia Plan: * EEG was performed today. It was probably an abnormal sleep study due to some intermittent generalized suppression, which could be related to encephalopathy or medication effect. No epileptiform activity was seen. * Patient has received Keppra 1000 mg IV last night. Now maintained on Keppra 500 mg IV daily, adjusted to her ESRD status. * Neurologically clear to be weaned off sedation and trial to extubate, if medically stable. * Treatment of other medical conditions as per IM/critical care. * Neurology will follow. Discussed with the nurse in detail. Thank you for the consult.
--- NOTE | 2022-02-17 10:46 | EEG ---
ELECTROENCEPHALOGRAM REPORT PREAMBLE: This is a 31-year-old female with a history of end-stage renal disease, who went into cardiac arrest, and CPR was given. This study is performed to evaluate for any epileptiform activity. CURRENT MEDICATION: Propofol 75 mcg. EEG FINDINGS: This is a 21-channel digital EEG recorded with video component, utilizing 10/20 International System with referential and bipolar montages. The background consists of diffuse moderate amplitude 1 to 2 Hz delta, with superimposed fast frequency beta activity and some periods of generalized suppression. Sleep spindles were seen during most of the study. Photic stimulation was not performed. No focal or generalized epileptiform activity was seen. Awake pattern not seen in the entire study. IMPRESSION: This is probably an abnormal EEG mainly during sleep. Periods of suppression and generalized slowing suggest underlying encephalopathy or medication effect. No epileptiform activity was seen. Clinical correlation and a followup EEG recommended if clinically indicated. EMILY / KYAW: [id number] / MTDD
--- NOTE | 2022-02-17 11:27 | P.NPCON ---
History of Present Illness - Reason for Consult end stage renal disease - History of Present Illness Patient is a 31-year-old female with end-stage renal disease on hemodialysis on a Monday schedule. Patient was brought into the E R with history of weakness and lightheadedness. She was found to have a heart rate of 44-46/m. Patient was hypotensive as well. While patient was in the ER she had a cardiac arrest. Patient was treated for hyperkalemia. I'll labs showed serum potassium of 6.5. Patient was intubated and transferred to the ICU. She was also hypoxic and and chest x-ray showed fluid overload. Patient was dialyzed yesterday with ultrafiltration of 4 L. This morning patient is on the vent FiO2 is at 40%. Patient had been on levo fed which is now discontinued and patient was on cleviprex overnight. She is currently seen on hemodialysis. Tolerating her treatment well. Sedation is being weaned Heart rate now in the 70s and blood pressure currently 130s systolic. Review of Systems As per HPI Past Medical History Past Medical History: CVA/TIA, Diabetes Mellitus, Dialysis, Eye Disorder, Hypertension, Renal Disease Additional Past Medical History / Comment(s): ESRD with hemodialysis M/W/F, IDDM type 1, DKA, neuropathy bilateral legs/feet, diabetic retinopathy/legally blind, RLS, gastritis, severe hypokalemia, fluid retention in abdomin/legs. History of Any Multi-Drug Resistant Organisms: None Reported Past Surgical History: Appendectomy, Section, Cholecystectomy Additional Past Surgical History / Comment(s): fistula left arm Past Anesthesia/Blood Transfusion Reactions: No Reported Reaction Past Psychological History: Anxiety, Depression Smoking Status: Never smoker Past Alcohol Use History: None Reported Past Drug Use History: None Reported - Past Family History Mother Family Medical History: Cancer, Hypertension Additional Family Medical History / Comment(s): Thyroid cancer, bipolar Father Family Medical History: Seizure Disorder Additional Family Medical History / Comment(s): Epilepsy Medications and Allergies Home Medications Medication Instructions Recorded Confirmed Type Ergocalciferol (Vitamin D2) 1,250 mcg PO Q30D 04/03/21 02/16/22 History [Drisdol (50,000 Iu)] Isosorbide Mononitrate ER [Imdur] 30 mg PO HS 04/03/21 02/16/22 History carvediloL [Coreg] 25 mg PO BID 04/03/21 02/16/22 History Acetaminophen Tab [Tylenol] 650 mg PO Q6HR PRN #30 tab 04/09/21 02/16/22 Rx Escitalopram [Lexapro] 20 mg PO DAILY 04/17/21 02/16/22 History Glucagon Emergency Kit 1 mg IM ONCE PRN #1 kit 06/15/21 02/16/22 Rx Cyanocobalamin [Vitamin B-12] 1,000 mcg PO DAILY #60 tab 09/06/21 02/16/22 Rx Atorvastatin [Lipitor] 40 mg PO DAILY 30 Days #30 tab 10/13/21 02/16/22 Rx Calcium Acetate [PhosLo] 667 mg PO TID-W/MEALS 30 Days #90 10/13/21 02/16/22 Rx tab Pantoprazole Sodium [Protonix] 20 mg PO BID #30 tab 10/15/21 02/16/22 Rx Albuterol Inhaler [Ventolin Hfa 2 puff INHALATION RT-QID PRN 12/06/21 02/16/22 History Inhaler] Aspirin 81 mg PO DAILY 12/06/21 02/16/22 History Methoxy Peg-Epoetin Beta [Mircera] 200 mcg IVPB Q14D 12/06/21 02/16/22 History NIFEdipine XL [Procardia XL] 120 mg PO DAILY 12/06/21 02/16/22 History LORazepam [Ativan] 1 mg PO TID PRN #90 tab 12/09/21 02/16/22 Rx hydrOXYzine HCL [Atarax] 25 mg PO TID PRN #90 tab 12/09/21 02/16/22 Rx Insulin Aspart [NovoLOG Flexpen] See Protocol SQ TID-W/MEALS 12/21/21 02/16/22 History Insulin Detemir (Levemir) [Levemir] 13 unit SQ HS 12/21/21 02/16/22 History Melatonin [Melatonin Dissolving 10 mg PO HS 12/21/21 02/16/22 History Tablet] hydrALAZINE HCL [Apresoline] 100 mg PO TID 12/21/21 02/16/22 History rOPINIRole HCL [Requip] 1 mg PO HS 12/21/21 02/16/22 History cloNIDine HCL [Catapres] 0.3 mg PO TID PRN #90 tab 12/23/21 02/16/22 Rx Lidocaine-Prilocaine Cream [Emla 1 applic TOPICAL MOWEFR PRN 02/09/22 02/16/22 History Cream 2.5%/2.5%] Losartan Potassium 100 mg PO DAILY 02/09/22 02/16/22 History Prazosin [Minipress] 5 mg PO BID 02/09/22 02/16/22 History buPROPion SR [Wellbutrin SR] 150 mg PO BID 02/09/22 02/16/22 History Allergies Allergy/AdvReac Type Severity Reaction Status Date / Time Fish Containing Products Allergy Rash/Hives Verified 02/16/22 11:28 [Fish] iodine Allergy Anaphylaxis Verified 02/16/22 11:28 Physical Exam Vitals: Vital Signs Temp Pulse Resp BP Pulse Ox FiO2 02/17/22 10:40 40 02/17/22 10:00 75 20 96 40 02/17/22 09:30 75 20 96 40 02/17/22 09:00 75 20 97 02/17/22 08:30 98.6 F 75 20 100 02/17/22 08:00 77 20 100 40 02/17/22 07:40 60 02/17/22 07:30 79 20 100 60 02/17/22 07:00 80 20 100 02/17/22 06:00 102.6 F H 86 20 99 02/17/22 05:00 85 20 100 02/17/22 04:00 101.8 F H 84 20 163/86 100 60 02/17/22 03:19 60 02/17/22 03:00 85 27 H 157/97 99 02/17/22 02:00 87 20 100 02/17/22 01:00 83 20 150/78 100 02/17/22 00:30 81 20 150/78 99 02/17/22 00:00 98.1 F 81 20 99 60 02/16/22 23:59 81 20 142/76 99 02/16/22 23:40 60 02/16/22 23:30 80 20 142/76 99 02/16/22 23:00 79 20 155/85 98 02/16/22 22:20 60 02/16/22 22:10 60 02/16/22 22:00 81 81 H 178/97 99 02/16/22 21:30 82 20 203/106 99 02/16/22 21:00 82 20 232/120 99 02/16/22 20:30 80 20 226/118 99 02/16/22 20:00 98.5 F 79 20 208/109 97 100 02/16/22 19:30 80 22 210/101 98 02/16/22 19:08 100 02/16/22 19:00 78 25 H 90 L 02/16/22 18:30 72 22 94 L 02/16/22 18:00 67 20 154/93 99 100 02/16/22 17:30 67 23 181/108 100 02/16/22 17:00 68 22 176/102 100 02/16/22 16:30 68 81 H 168/89 78 L 02/16/22 16:00 97.5 F L 65 22 156/87 95 100 02/16/22 15:30 60 31 H 145/83 80 L 02/16/22 15:25 100 02/16/22 15:00 60 28 H 144/71 96 02/16/22 14:30 58 L 29 H 134/69 95 100 02/16/22 14:00 94 F L 53 L 27 H 115/57 53 L 100 02/16/22 13:35 51 L 20 103/51 90 L 02/16/22 13:21 49 L 20 94/46 02/16/22 12:41 44 L 20 84/38 02/16/22 12:25 41 L 20 76/36 02/16/22 12:05 38 L 20 02/16/22 12:00 41 L 71/46 02/16/22 11:45 52 L 20 02/16/22 11:41 100 02/16/22 11:25 53 L 21 90/58 89 L Intake and Output 02/16/22 02/17/22 02/17/22 22:59 06:59 14:59 Intake Total 712.897 327.479 158.974 Output Total 4000 0 0 Balance -3287.103 327.479 158.974 Intake: IV 160 160 20 0.9 @ 20ml/hr 60 160 20 levETIRAcetam IV 1,000 mg 100 In Saline 1 100ml.bag @ 400 mls/hr IVPB Q12H [facility] Rx#:[id number] Intake, IV Titration 252.897 167.479 138.974 Amount Calcium Gluconate in NaCl 100 1 gm In Saline 1 100ml. bag @ 100 mls/hr IVPB ONCE ONE Rx#:[id number] Clevidipine Butyrate 25 4.500 126.733 98.800 mg In Empty Bag 1 bag @ 1 MG/HR 2 mls/hr IV .Q24H [facility] Rx#:[id number] Insulin Regular 100 unit 10.395 In Sodium Chloride 0.9% 100 ml @ Titrate IV .Q0M [facility] Rx#:[id number] Norepinephrine 4 mg In 8.779 Sodium Chloride 0.9% 250 ml @ 0.05 MCG/KG/MIN 10. 974 mls/hr IV .Q23H9M [facility] Rx#:[id number] Sodium Chloride 0.9% 1, 90 000 ml @ 20 mls/hr IV . Q24H [facility] Rx#:[id number] propofoL 1,000 mg In 39.223 40.746 40.174 Empty Bag 1 bag @ 5 MCG/ KG/MIN 1.428 mls/hr IV . Q24H [facility] Rx#:[id number] Hemodialysis 300 Output: Urine 0 0 0 Hemodialysis 4000 Other: Voiding Method Indwelling Catheter Indwelling Catheter Weight 53.6 kg 53.6 kg ABP, PAP, CO, CI - Last 8 Hours Arterial Blood Pressure 134/55 Arterial Blood Pressure 132/52 Arterial Blood Pressure 134/53 Arterial Blood Pressure 140/57 Arterial Blood Pressure 36/36 Arterial Blood Pressure 135/55 Arterial Blood Pressure 148/62 Arterial Blood Pressure 156/60 Arterial Blood Pressure 153/62 Arterial Blood Pressure 160/65 Patient is currently sedated she is on the vent. Examination of the heart S1 and S2 Examination of the lungs bilateral breath sounds are heard Abdomen is soft nontender Examination of lower extremities shows no edema CONCESSIONS MANAGER exam cannot be performed but patient has been moving all 4 extremities. Results - Lab Results Most recent lab results ABG pH 7.46 (7.35-7.45) H 02/17/22 05:56 ABG pCO2 41 mmHg (35-45) 02/17/22 05:56 ABG pO2 199 mmHg (83-108) H 02/17/22 05:56 ABG HCO3 29 mmol/L (21-25) H 02/17/22 05:56 ABG O2 Saturation 99.8 % (94-97) H 02/17/22 05:56 Calcium 9.7 mg/dL (8.4-10.2) 02/17/22 05:53 Phosphorus 1.0 mg/dL (2.5-4.5) L* 02/17/22 05:53 Magnesium 1.9 mg/dL (1.6-2.3) 02/17/22 05:53 02/16/22 11:15 02/17/22 05:53 Assessment and Plan Assessment: 1. End-stage renal disease on hemodialysis on a Monday vent is a Monday schedule 2. Volume overload currently improved 3. Status post cardiac arrest possibly related to hyperkalemia however patient has had a much higher potassium levels previously in the 70 range without any EKG findings. Check echocardiogram as she has had large pericardial effusion previously 4. Hyperkalemia associated with end-stage renal disease, currently improved post dialysis 5. History of uncontrolled hypertension requiring multiple medications 6. Brittle diabetes Plan: Hemodialysis today Will reevaluate for need for hemodialysis in a.m. Repeat labs later on today and replace potassium cautiously if needed We have held hydralazine previously during her admission secondary to positive antihistone antibodies and pericardial effusion which can be associated with hydralazine. I do see it on her home med list
[2022-02-17] MEDS: buPROPion SR 150 MG TABLET.ER PO SCH ×2 (11:47→20:13)
[2022-02-17] MEDS: ATORVASTATIN 40 MG TAB PO SCH (11:53)
[2022-02-17] MEDS: ASPIRIN 81 MG PO SCH (11:53)
[2022-02-17] MEDS: CHLORHEXIDINE GLUCONATE 15 ML CUP MUCOUS MEM SCH ×2 (11:53→21:22)
[2022-02-17] MEDS: PRAZOSIN 1 MG CAP PO SCH ×2 (11:54→20:14)
[2022-02-17] MEDS: LOSARTAN 50 MG TAB PO SCH (11:54)
[2022-02-17] MEDS: ESCITALOPRAM 20 MG TAB PO SCH (11:54)
[2022-02-17] MEDS: hydrALAZINE HCL 50 MG TAB PO SCH ×3 (11:54→21:22)
[2022-02-17] MEDS: PANTOPRAZOLE 40 MG/10 ML VIAL IV SCH (11:54)
[2022-02-17 12:09] LABS: Glucose,Whole Blood 149 mg/dL (70-110)
[2022-02-17 15:58] LABS: Phosphorus 2.7 mg/dL (2.5-4.5); Potassium 3.9 mmol/L (3.5-5.1)
[2022-02-17 16:15] LABS: Glucose,Whole Blood 317 mg/dL (70-110)
[2022-02-17] MEDS: SODIUM CHLORIDE 0.9% 1,000 ML IV SCH (18:45)
[2022-02-17 19:45] LABS: Glucose,Whole Blood 250 mg/dL (70-110)
[2022-02-18 00:07] LABS: Glucose,Whole Blood 220 mg/dL (70-110)
[2022-02-18] MEDS: INSULIN ASPART (NovoLOG) 100 UNIT/ML VIAL SQ SCH ×7 (00:09→23:30)
[2022-02-18 04:37] LABS: Glucose,Whole Blood 243 mg/dL (70-110)
[2022-02-18 04:48] LABS: HCT 22.3 % (34.0-46.0); HGB 7.9 gm/dL (11.4-16.0); MCH 30.1 pg (25.0-35.0); MCHC 35.4 g/dL (31.0-37.0); Mean Platelet Volume 10.5; RBC 2.62 m/uL (3.80-5.40); RDW 15.7 % (11.5-15.5)
[2022-02-18 05:05] LABS: Calcium 8.8 mg/dL (8.4-10.2); Phosphorus 3.5 mg/dL (2.5-4.5); Potassium 3.4 mmol/L (3.5-5.1)
[2022-02-18 05:51] LABS: ABG Base Excess 1.6 mmol/L; ABG HCO3 26 mmol/L (21-25); ABG Oxygen Saturation 98.7 % (94-97); ABG PCO2 39 mmHg (35-45); ABG PH 7.44 (7.35-7.45); ABG PO2 119 mmHg (83-108); ABG TCO2 27 mmol/L (19-24)
[2022-02-18 05:57] LABS: Allen Test Performed? No
[2022-02-18 06:07] LABS: Platelet Count 93 k/uL (150-450)
[2022-02-18 06:13] LABS: Band Neutrophils % 20 %; Dohle Bodies Present; Monocytes # (M) 0.04 k/uL (0-1.0); Neutrophils % (M) 74 %; Nucleated Red Blood Cells 0 /100 WBC (0-0); Polychromasia Present; Total Cells Counted 100; Toxic Vacuolation Present
[2022-02-18] MEDS: POTASSIUM CHLORIDE 10 MEQ in WATER FOR INJECTION 1 100ML.BAG IVPB SCH ×4 (07:10→15:24)
[2022-02-18 08:14] LABS: Glucose,Whole Blood 176 mg/dL (70-110)
[2022-02-18] MEDS: buPROPion SR 150 MG TABLET.ER PO SCH ×2 (08:19→20:34)
[2022-02-18] MEDS: PANTOPRAZOLE 40 MG/10 ML VIAL IV SCH (08:19)
[2022-02-18] MEDS: ATORVASTATIN 40 MG TAB PO SCH (08:19)
[2022-02-18] MEDS: CHLORHEXIDINE GLUCONATE 15 ML CUP MUCOUS MEM SCH ×2 (08:19→20:34)
[2022-02-18] MEDS: ASPIRIN 81 MG PO SCH (08:19)
[2022-02-18] MEDS: ESCITALOPRAM 20 MG TAB PO SCH (08:20)
--- NOTE | 2022-02-18 08:49 | XR ---
EXAMINATION TYPE: XR chest 1V portable DATE OF EXAM: 02/18/2022 6:11 AM COMPARISON: Chest radiographs from 02/17/2022. TECHNIQUE: XR chest 1V portable Frontal view of the chest. CLINICAL INDICATION:Female, 31 years old with history of Tube placement; FINDINGS: Lungs/Pleura: There is no evidence of pleural effusion or pneumothorax. Similar airspace disease most pronounced on left base. Pulmonary vascularity: Unremarkable. Heart/mediastinum: Cardiomediastinal silhouette is mildly enlarged and stable. Musculoskeletal: No acute osseous pathology. Other findings: None Lines/Tubes: Endotracheal tube with distal tip 3.7 cm above the walter Nasogastric tube with its distal tip and side-port projecting under the diaphragm. IMPRESSION: 1. Unchanged airspace disease with mild cardiomegaly. 2. Stable support tubes.
--- NOTE | 2022-02-18 09:43 | P.PN ---
Subjective Progress Note Date: 02/18/22 31-year-old female patient with multiple medical present comorbidities. The patient is known to have type 1 diabetes mellitus, and the patient has end-stage renal disease and the patient is on hemodialysis. Blood sugar control with that over the years and the patient has had previous hospitalizations for pneumonia, missed dialysis, she is for hyperkalemia and fluid overload and pulmonary edema. She has also also been treated for hypertensive emergencies. The patient brought into the emergency department today as the patient was feeling lightheaded and dizzy and very weak. The patient was due for dialysis today. She is undergoing dialysis today. The patient was found to be bradycardic by EM S and the patient's heart rate was in the low 40s. She was brought into the emergency and she had a blood pressure 75/45 with a pulse ox of 90% on room air. Heart rate subsequently slowed down further went down to the 30s and following that the patient was feeling anxious and jittery denies having any chest pain. Subsequently, she goes into a cardiac arrest, asystole and the patient was resuscitated with a downtime estimated to be around 10 minutes. The patient went into asystole and CPR was initiated immediately. She did require intubation. I was also told that this was a difficult intubation as the patient has copious amount of frothy colored material in the posterior oropharynx which was suctioned out. During the course of her treatment, the patient was given hyperkalemia cocktail. The blood work came back with a sodium level of 128, potassium level was 5 and the patient had a chloride of 89 with a bicarb of 20 with a 53 and a creatinine of 7.52. The patient had a flexor count of 4.4 hemoglobin 8.7 and a platelet count of 175. The blood gases on 100% FiO2 showed a pH of 7.36 with a pCO2 of 38 and pO2 of 52. This was the blood gases was done immediately after intubation. The patient is currently in the intensive care unit on assist-control mode of mechanical ventilation at the rate of 20, tidal volume of 400, FiO2 of 100% with a PEEP of 8. Current pulse ox is 96%. The patient is sedated with propofol which is running at 50 mcg/kg per minute. The patient was also started on pressors for hypotension. Norepinephrine is running at 0.18 mcg/kg per minute. Post intubation chest x-ray showed cardiomegaly and pulmonary edema. ET tube is in a good location. The patient also has a orogastric tube which is in good location. She is arousable and she response to stimulation and she is moving all 4 extremities without any limitation.. On her blood work, the patient has a white cell count of 4.1 with a hemoglobin of 8.7 and a platelet count of 175. Her proBNP level was 49,200. Troponin was negative. Most recent blood sugar is at 562. 02/17/2022, seeing the patient for a follow-up. The patient remains intubated on a mechanical ventilator. The patient remains sedated on propofol which is running at 75 mcg/kg per minute. Yesterday late afternoon, the patient was felt to have some seizure like activity. This was not certain as the patient was hav ing some jerky body movements. The patient was given a total of 4 L of IV Ativan in follow-up. The patient was started on Keppra. CAT scan of the brain was done that showed hydrocephalus which is chronic and there is no acute abnormalities noted. No evidence of any bleeding. Note that the patient had a brief cardiac arrest due to asystole. In any rate, the patient is currently hypertensive and she is in a normal sinus rhythm. She was started on side effects after trying various antihypertensive medication and the patient is currently on Celebrex running at a dose of 8 mg per minute. Blood pressure is under better control for now with her most recent blood pressure being 138/57. The patient underwent hemodialysis yesterday with a total of 4 L of ultrafiltration. The patient remains on a mechanical ventilator. On today's evaluation of assist-control mode at the rate of 20 with a tidal volume of 400 and FiO2 of 60% with a PEEP of 12. Blood gases showed improvement in oxygenati on and the pO2 is 199. PH is at 7.46 with a pCO2 of 41. As such, there is improvement in oxygenation. There is improvement and acid base status. The patient's chest x-ray from today shows cardiomegaly. There is significant resolution of the pulmonary edema discussed earlier in the ET tube is in a good location. The patient also has a orogastric tube which is in great location. Potassium level is down to 3.5. Total of 146. Blood sugar today is 152. The patient was placed on an insulin drip yesterday and subsequently her blood sugars dropped and she was taken off insulin drip and currently she is on sliding scale insulin coverage every 4 hours. She remains nothing by mouth. Flores catheter is in place. Urine output is minimal. Calcium level is at 9.7. Phosphorus level is low at 1.0 and magnesium is at 1.9. In terms of her CBC, the white cell count from yesterday was 4.1 with a bilirubin of 8.7. 02/18/2022, the patient remains intubated on a mechanical ventilator. The pat ient is hemodynamically stable and the patient is on no pressors. The patient sedated with propofol which is running at 60 mg/kg/m. The patient has not had any seizure activity and the EEG that was done yesterday showed encephalopathy and diffuse slowing without any seizure-like activity. The patient was taken off Keppra. Meanwhile, the patient was having routine hemodialysis. The patient has already undergone dialysis yesterday and I think there are plans to do another session of hemodialysis today. She remains on a mechanical ventilator and she is quite synchronous patient is an assist-control mode at the rate of 20 with a tidal volume of 400 and FiO2 of 30% and a PEEP of 5. Has been considerable improvement in oxygenation and the chest x-ray also shows cardiomegaly. No acute abnormalities noted. ET tube remains in a good location. The patient's most recent blood work from this morning shows a pH of 7.44 with a pCO2 of 39 and pO2 112. Airway pressures are quite low at this point in time. As such, the patient was going to be taken off sedation and she'll be given a sedation holiday and her readiness to wean will be evaluated. Another issue is the ongoing episodes of temperature that the patient had throughout the day yesterday. The white second is not elevated at 4.0. The patient did have explosive liquidy diarrhea and the patient has a fecal management system in place. No antibiotic use at this point in time. Cultures of been sent. Stool for C. diff has been sent. Results are still pending for now. At the same time, the patient has been hemodynamically stable. No significant tachycardia. Sodium levels is 138 with a potassium level of 3.4, BUN is at 34 with a creatinine of 4.39. The white cell count is at 4 with a hemoglobin of 7.5. Cultures from the sputum was collected and results are still pending for now. In terms of her blood sugar control, the patient is on a sliding scale coverage. She's been adequately controlled for now. No long- acting insulin is being is less. No insulin drip is being is less for now. Her blood pressure is stable and she was started back on an antihypertensive medication pH was taken off the Catapres drip and the patient is well covered with a combination of as hypertensive medications including hydralazine 100 mg by mouth 3 times a day, Procardia XL 120 mg by mouth daily and prazosin 5 mg by mouth twice a day and Cozaar 1000 mg by mouth daily. Note that the clonidine and the beta rox was not restarted due to her underlying bradycardia at a time of admission. Objective - Vital Signs Vital signs: Vital Signs Temp 98.2 F 02/18/22 08:00 Pulse 75 02/18/22 08:00 Resp 20 02/18/22 08:00 BP 98/53 02/18/22 08:00 Pulse Ox 96 02/18/22 08:00 FiO2 30 02/18/22 08:00 Intake & Output 02/17/22 02/18/22 02/18/22 18:59 06:59 18:59 Intake Total 754.618 468.639 140 Output Total 3005 450 0 Balance -2250.382 18.639 140 Weight 53.6 kg 52.2 kg Intake: IV 20 220 40 0.9 @ 20ml/hr 20 220 40 Intake, IV Titration 314.618 248.639 100 Amount Clevidipine Butyrate 25 98.800 mg In Empty Bag 1 bag @ 1 MG/HR 2 mls/hr IV .Q24H [facility] Rx#:[id number] Potassium Chloride 10 meq 100 In Water For Injection 1 100ml.bag @ 100 mls/hr IVPB Q1HR [facility] Rx#: [id number] propofoL 1,000 mg In 215.818 248.639 Empty Bag 1 bag @ 5 MCG/ KG/MIN 1.428 mls/hr IV . Q24H [facility] Rx#:[id number] Hemodialysis 300 Other 120 Output: Gastric Drainage 300 Urine 5 0 0 Stool 150 Hemodialysis 3000 Other: Voiding Method Indwelling Catheter Indwelling Catheter # Bowel Movements 2 ABP, PAP, CO, CI - Last Documented Arterial Blood Pressure 94/54 - Exam GENERAL EXAM: Alert, pleasant, 30-year-old white female, resting in bed, the patient intubated on mechanical ventilator. The patient has an orogastric and orotracheal tube. The patient is currently intubated. The patient is sedated with propofol. HEAD: Normocephalic/atraumatic. EYES: Normal reaction of pupils, equal size. Conjunctiva pink, sclera white. NOSE: Clear with pink turbinates. THROAT: No erythema or exudates. NECK: No masses, no JVD, no thyroid enlargement, no adenopathy. CHEST: No chest wall deformity. Symmetrical expansion. LUNGS: Equal air entry with no crackles, wheeze, rhonchi or dullness. CVS: Regular rate and rhythm, normal S1 and S2, no gallops, no murmurs, no rubs ABDOMEN: Soft, nontender. No hepatosplenomegaly, normal bowel sounds, no guarding or rigidity. EXTREMITIES: No clubbing, no edema, no cyanosis, 2+ pulses and upper and lower extremities. left Arm AV fistula MUSCULOSKELETAL: Muscle strength and tone normal. SPINE: No scoliosis or deformity SKIN: No rashes CENTRAL NERVOUS SYSTEM: The patient is currently on propofol and the patient is sedated. The patient is withdrawing to painful stim additional 4 extremities. No facial asymmetry. Positive cough and a gag. Pupils around 8 mm in size, equal and symmetrical he is sluggish and reactive to light. No nystagmus no clonus. No Babinski. - Labs CBC & Chem 7: 02/18/22 04:35 02/18/22 04:35 Labs: Abnormal Lab Results - Last 24 Hours (Table) 02/17/22 02/17/22 02/17/22 Range/Units 12:07 16:12 19:44 RBC (3.80-5.40) m/uL Hgb (11.4-16.0) gm/dL Hct (34.0-46.0) % RDW (11.5-15.5) % Plt Count (150-450) k/uL Lymphocytes # (Manual) (1.0-4.8) k/uL ABG pO2 (83-108) mmHg ABG HCO3 (21-25) mmol/L ABG Total CO2 (19-24) mmol/L ABG O2 Saturation (94-97) % Potassium (3.5-5.1) mmol/L Chloride (98-107) mmol/L BUN (7-17) mg/dL Creatinine (0.52-1.04) mg/dL Glucose (74-99) mg/dL POC Glucose (mg/dL) 149 H 317 H 250 H (70-110) mg/dL 02/18/22 02/18/22 02/18/22 Range/Units 00:05 04:35 04:35 RBC 2.62 L (3.80-5.40) m/uL Hgb 7.9 L (11.4-16.0) gm/dL Hct 22.3 L (34.0-46.0) % RDW 15.7 H (11.5-15.5) % Plt Count 93 L (150-450) k/uL Lymphocytes # (Manual) 0.20 L (1.0-4.8) k/uL ABG pO2 (83-108) mmHg ABG HCO3 (21-25) mmol/L ABG Total CO2 (19-24) mmol/L ABG O2 Saturation (94-97) % Potassium 3.4 L (3.5-5.1) mmol/L Chloride 96 L (98-107) mmol/L BUN 34 H (7-17) mg/dL Creatinine 4.39 H (0.52-1.04) mg/dL Glucose 200 H (74-99) mg/dL POC Glucose (mg/dL) 220 H (70-110) mg/dL 02/18/22 02/18/22 02/18/22 Range/Units 04:35 05:43 08:12 RBC (3.80-5.40) m/uL Hgb (11.4-16.0) gm/dL Hct (34.0-46.0) % RDW (11.5-15.5) % Plt Count (150-450) k/uL Lymphocytes # (Manual) (1.0-4.8) k/uL ABG pO2 119 H (83-108) mmHg ABG HCO3 26 H (21-25) mmol/L ABG Total CO2 27 H (19-24) mmol/L ABG O2 Saturation 98.7 H (94-97) % Potassium (3.5-5.1) mmol/L Chloride (98-107) mmol/L BUN (7-17) mg/dL Creatinine (0.52-1.04) mg/dL Glucose (74-99) mg/dL POC Glucose (mg/dL) 243 H 176 H (70-110) mg/dL Microbiology - Last 24 Hours (Table) 02/16/22 23:45 Gram Stain - Preliminary Sputum Sputum Culture - Preliminary Assessment and Plan Plan: Acute cardiopulmonary arrest, most likely due to a combination of fluid overload and hyperkalemia that started off with bradycardia and subsequently the patient went into asystole. The patient received CPR, epinephrine and atropine and calcium gluconate and bicarbonate and insulin during the time of the resuscitation. Downtime was approximately 5 minutes and there was return of Spon circulation. Currently intubated on a mechanical ventilator and the patient is currently on propofol for sedation hemodynamically the patient is stable. The patient was initially hypotensive and this has recovered. The patient subsequently became hypertensive and this has recovered and the patient is currently maintaining her on blood pressure and she is currently on a combin ation antihypertensive medication. Her current cardiac rhythm is sinus. No bradycardias or any cardiac arrhythmias have been noted. Acute hypoxic respiratory failure, oxygenation improved. Severe bradycardia followed by cardiac arrest, likely secondary to acute hyperkalemia, recovered and the patient is currently in normal sinus rhythm. Note that the patient was taking Coreg and clonidine which could've also contributed to her bradycardia, recovered Hypotension post cardiac arrest, recovered Acute hypoxic respiratory failure, currently intubated on a mechanical ventilator, chest x-rays consistent with pulmonary edema, improved Questionable seizure activity. The patient had a CAT scan of the brain that showed hydrocephalus. The EEG was done and showed no evidence of any seizure activity and the patient was taken off the Keppra Acute pulmonary edema/volume overload, improved End-stage renal disease to receive hemodialysis on Monday Diabetes mellitus type 1 with brittle blood sugar control. Patient is currently on a scale insulin coverage. Hypertension and hypertensive heart disease. Ejection fraction of around 50- 55%. Moderate increase in the LV wall thickness related to chronic hypertension there was also mild pulmonary hypertension. Previous history of hyperkalemia requiring hemodialysis. The potassium level improved and the patient potassium normalized post dialysis , the patient was taken off lisinopril due to concerns of episodic hyperkalemia. Chronic anemia Previous hospitalization for hypertensive emergency due to missed dialysis Recent moderate circumferential pericardial effusion Recent hospitalization for bilateral pneumonia, discharged on 09/06/2021 History of CVA/TIA History of COVID-19 infection in May 2021 Episodes of fever Acute diarrhea rule out C. diff colitis Plan Stop propofol Assessment patient's mental status while off the propofol. Check weaning parameters and assess his readiness to wean Fecal management system in place Monitor diarrhea and the blood culture was sent, sputum culture was sent, stool will be checked for C. diff No seizure activity has been noted. EEG was negative and the patient will be taken off the Keppra Blood pressure control is adequate for now Dialysis by nephrology. Last dialysis session was yesterday Echo was ordered Possible exhibition today depending on her condition Hold enteral feeding in preparation for extubation today We'll continue to follow make further recommendations based on progress. We'll monitor the fever pattern. No antibiotic coverage for now. Critically care evaluation, more than 30 minutes. Time with Patient: Greater than 30
[2022-02-18] MEDS: LOSARTAN 50 MG TAB PO SCH (09:55)
[2022-02-18] MEDS: hydrALAZINE HCL 50 MG TAB PO SCH ×3 (09:55→23:12)
[2022-02-18] MEDS: PRAZOSIN 1 MG CAP PO SCH ×2 (09:56→20:40)
--- NOTE | 2022-02-18 11:22 | P.PN ---
Subjective Patient is seen for follow-up for end-stage renal disease. Patient was admitted to the hospital with weakness and subsequently coded in the ER. Potassium was elevated at 6.5. Patient remains on the vent. There was evidence of volume overload on initial admission. We have had 7 L of ultrafiltration over the last 2 days. This morning patient remains on the vent. FiO2 is at 30%. Blood pressure was elevated yesterday. This morning it is on the lower side. Patient was scheduled for hemodialysis today mostly for ultrafiltration however since her blood pressure is consistently staying low with significant improvement in volume status I will hold off on hemodialysis today. Objective - Vital Signs Vital signs: Vital Signs Temp 98.2 F 02/18/22 08:00 Pulse 75 02/18/22 08:00 Resp 20 02/18/22 08:00 BP 98/53 02/18/22 08:00 Pulse Ox 96 02/18/22 08:00 FiO2 30 02/18/22 11:00 Intake & Output 02/17/22 02/18/22 02/18/22 18:59 06:59 18:59 Intake Total 754.618 468.639 140 Output Total 3005 450 0 Balance -2250.382 18.639 140 Weight 53.6 kg 52.2 kg Intake: IV 20 220 40 0.9 @ 20ml/hr 20 220 40 Intake, IV Titration 314.618 248.639 100 Amount Clevidipine Butyrate 25 98.800 mg In Empty Bag 1 bag @ 1 MG/HR 2 mls/hr IV .Q24H [facility] Rx#:[id number] Potassium Chloride 10 meq 100 In Water For Injection 1 100ml.bag @ 100 mls/hr IVPB Q1HR [facility] Rx#: [id number] propofoL 1,000 mg In 215.818 248.639 Empty Bag 1 bag @ 5 MCG/ KG/MIN 1.428 mls/hr IV . Q24H [facility] Rx#:[id number] Hemodialysis 300 Other 120 Output: Gastric Drainage 300 Urine 5 0 0 Stool 150 Hemodialysis 3000 Other: Voiding Method Indwelling Catheter Indwelling Catheter # Bowel Movements 2 ABP, PAP, CO, CI - Last Documented Arterial Blood Pressure 94/54 - Exam Sedated On the vent Examination of the heart S1 and S2 Examination lungs decreased breath sounds at the bases Abdomen is soft nontender Examination lower extremity shows no significant edema - Labs CBC & Chem 7: 02/18/22 04:35 02/18/22 04:35 Labs: Abnormal Lab Results - Last 24 Hours (Table) 02/17/22 02/17/22 02/17/22 Range/Units 12:07 16:12 19:44 RBC (3.80-5.40) m/uL Hgb (11.4-16.0) gm/dL Hct (34.0-46.0) % RDW (11.5-15.5) % Plt Count (150-450) k/uL Lymphocytes # (Manual) (1.0-4.8) k/uL ABG pO2 (83-108) mmHg ABG HCO3 (21-25) mmol/L ABG Total CO2 (19-24) mmol/L ABG O2 Saturation (94-97) % Potassium (3.5-5.1) mmol/L Chloride (98-107) mmol/L BUN (7-17) mg/dL Creatinine (0.52-1.04) mg/dL Glucose (74-99) mg/dL POC Glucose (mg/dL) 149 H 317 H 250 H (70-110) mg/dL 02/18/22 02/18/22 02/18/22 Range/Units 00:05 04:35 04:35 RBC 2.62 L (3.80-5.40) m/uL Hgb 7.9 L (11.4-16.0) gm/dL Hct 22.3 L (34.0-46.0) % RDW 15.7 H (11.5-15.5) % Plt Count 93 L (150-450) k/uL Lymphocytes # (Manual) 0.20 L (1.0-4.8) k/uL ABG pO2 (83-108) mmHg ABG HCO3 (21-25) mmol/L ABG Total CO2 (19-24) mmol/L ABG O2 Saturation (94-97) % Potassium 3.4 L (3.5-5.1) mmol/L Chloride 96 L (98-107) mmol/L BUN 34 H (7-17) mg/dL Creatinine 4.39 H (0.52-1.04) mg/dL Glucose 200 H (74-99) mg/dL POC Glucose (mg/dL) 220 H (70-110) mg/dL 02/18/22 02/18/22 02/18/22 Range/Units 04:35 05:43 08:12 RBC (3.80-5.40) m/uL Hgb (11.4-16.0) gm/dL Hct (34.0-46.0) % RDW (11.5-15.5) % Plt Count (150-450) k/uL Lymphocytes # (Manual) (1.0-4.8) k/uL ABG pO2 119 H (83-108) mmHg ABG HCO3 26 H (21-25) mmol/L ABG Total CO2 27 H (19-24) mmol/L ABG O2 Saturation 98.7 H (94-97) % Potassium (3.5-5.1) mmol/L Chloride (98-107) mmol/L BUN (7-17) mg/dL Creatinine (0.52-1.04) mg/dL Glucose (74-99) mg/dL POC Glucose (mg/dL) 243 H 176 H (70-110) mg/dL Microbiology - Last 24 Hours (Table) 02/16/22 23:45 Gram Stain - Preliminary Sputum Sputum Culture - Preliminary Assessment and Plan Assessment: 1. End-stage renal disease on hemodialysis on a Monday s ben as outpatient 2. Volume overload currently improved 3. Status post cardiac arrest possibly related to hyperkalemia however patient has had a much higher potassium levels previously in the 70 range without any EKG findings. Check echocardiogram as she has had large pericardial effusion previously 4. Hyperkalemia associated with end-stage renal disease, currently improved post dialysis 5. History of uncontrolled hypertension requiring multiple medications 6. Brittle diabetes Plan: Hold hemodialysis today. Schedule hemodialysis in a.m. Hold blood pressure meds predialysis Possible extubation today
[2022-02-18 12:04] LABS: Glucose,Whole Blood 151 mg/dL (70-110)
[2022-02-18] MEDS: SODIUM CHLORIDE 0.9% 1,000 ML IV SCH (12:20)
[2022-02-18 15:08] LABS: Glucose,Whole Blood 178 mg/dL (70-110)
--- NOTE | 2022-02-18 15:21 | CA ---
Transthoracic Echo Report Name: Patsy Pizano Age: 31 Gender: F : 1990 Exam Date: 02/18/2022 10:07 Exam Location: [facility] Ht (in): 64 Wt (lb): 115 Ordering Physician: Adriana Ordonez MD Attending/Referring Phys: Communications Analyst Gisele Iniguez RDCS Procedure CPT: Indications: sinus bradycardia, cardiac arrest Cardiac Hx: Technical Quality: Contrast 1: Total Dose (mL): Contrast 2: Total Dose (mL): MEASUREMENTS (Male / Female) Normal Values 2D ECHO LV Diastolic Diameter PLAX 3.7 cm 4.2 - 5.9 / 3.9 - 5.3 cm LV Systolic Diameter PLAX 2.9 cm IVS Diastolic Thickness 1.1 cm 0.6 - 1.0 / 0.6 - 0.9 cm LVPW Diastolic Thickness 1.4 cm 0.6 - 1.0 / 0.6 - 0.9 cm LV Relative Wall Thickness 0.7 RV Internal Dim ED PLAX 2.9 cm LA Systolic Diameter LX 2.9 cm 3.0 - 4.0 / 2.7 - 3.8 cm LA Volume 37.9 cm??? 18 - 58 / 22 - 52 cm??? M-MODE Aortic Root Diameter MM 2.4 cm MV E Point Septal Separation 0.6 cm AV Cusp Separation MM 1.8 cm DOPPLER MV Area PHT 3.0 cm??? Mitral E Point Velocity 99.1 cm/s Mitral A Point Velocity 80.2 cm/s Mitral E to A Ratio 1.2 MV Deceleration Time 253.2 ms MV E' Velocity 3.5 cm/s Mitral E to MV E' Ratio 28.1 TR Peak Velocity 211.6 cm/s TR Peak Gradient 17.9 mmHg Right Ventricular Systolic Press 32.6 mmHg FINDINGS Left Ventricle Left ventricular ejection fraction is estimated at 50-55 %. Left ventricular cavity size normal. Mild concentric left ventricular hypertrophy. Right Ventricle Normal right ventricular size and function. Right ventricular systolic pressure within normal limits. Right Atrium Normal right atrial size. Left Atrium Normal left atrial size. No evidence for an atrial septal defect. Mitral Valve Mitral valve thickened. No mitral stenosis, regurgitation or prolapse. Aortic Valve Trileaflet aortic valve. No aortic valve stenosis or regurgitation. Tricuspid Valve Mild tricuspid regurgitation. Pulmonic Valve Structurally normal pulmonic valve. Pericardium Moderate pericardial effusion. Aorta Normal size aortic root and proximal ascending aorta. CONCLUSIONS Normal LV systolic function moderate pericardial effusion No evidence of Not Previewed by: Dr. Riley Yang MD (Electronically Signed) Final Date: 18 February 2022 15:20
[2022-02-18] MEDS: PIPERACILLIN-TAZOBACTAM 3.375 GM in SODIUM CHLORIDE 0.9% 100 ML IVPB SCH ×2 (15:24→23:30)
[2022-02-18] MEDS ORDERED: DEXMEDETOMIDINE/0.9% NACL(PMX) 400 MCG in EMPTY BAG 1 BAG IV SCH (16:00)
[2022-02-18] MEDS: ACETAMINOPHEN TAB 325 MG TAB PO PRN (16:00)
--- NOTE | 2022-02-18 17:25 | XR ---
EXAMINATION TYPE: XR chest 1V portable DATE OF EXAM: 02/18/2022 COMPARISON: 02/18/2022 HISTORY: SOB, Follow Up FINDINGS: Endotracheal tube is appropriately placed. NG tube is seen coursing into the stomach. Stable left lower lobe atelectasis or infiltrate. Stable appearance of the cardio-mediastinal structures at this time. IMPRESSION: 1. Indwelling tubes and catheters as noted. Stable chest.
[2022-02-18 17:38] LABS: Glucose,Whole Blood 171 mg/dL (70-110)
[2022-02-18 19:57] LABS: Glucose,Whole Blood 242 mg/dL (70-110)
--- NOTE | 2022-02-18 21:53 | P.CONS ---
History of Present Illness - Reason for Consult Consult date: 02/18/22 Fever Requesting physician: Roque Buckner - Chief Complaint weakness x few days - History of Present Illness Patient is a 31-year-old female with multiple comorbidities including insulin-dependent diabetes mellitus and stage renal disease on hemodialysis donnie gerardo presenting to the hospital 2 days ago on 02/16/2022 after the patient felt lightheaded and dizzy and very weak the patient was noticed to be bradycardia cardiac and hypertensive patient was subsequently brought into the ER the patient subsequently did have a cardiac arrest asystole the patient was resuscitated with downtime about 10 minutes requiring intubation and apparently the patient did have copious amount of further secretion from the posterior pharynx the time of intubation patient on presentation to the hospital was afebrile she did spike a fever of 102F yesterday morning and a fever of 100 degrees formulae right this morning and that has prompted this infectious disease consultation patient is currently on the vent off the pressor support FiO2 is down to 30% no significant purulent secretion through the ET diarrhea or any other changes reported by the nursing staff patient did have a normal white count she did have profound diarrhea stool for C. difficile which came back negative sputum culture obtained are currently pending she did have blood cultures are currently pending chest x-ray completed this morning which shows evidence of airspace disease more pronounced on the left base Review of Systems Positive points has been mentioned in HPI complete review could not be obtained because patient is intubated on the vent Past Medical History Past Medical History: CVA/TIA, Diabetes Mellitus, Dialysis, Eye Disorder, Hypertension, Renal Disease Additional Past Medical History / Comment(s): ESRD with hemodialysis M/W/F, IDDM type 1, DKA, neuropathy bilateral legs/feet, diabetic retinopathy/legally blind, RLS, gastritis, severe hypokalemia, fluid retention in abdomin/legs. History of Any Multi-Drug Resistant Organisms: None Reported Past Surgical History: Appendectomy, Section, Cholecystectomy Additional Past Surgical History / Comment(s): fistula left arm Past Anesthesia/Blood Transfusion Reactions: No Reported Reaction Past Psychological History: Anxiety, Depression Smoking Status: Never smoker Past Alcohol Use History: None Reported Past Drug Use History: None Reported - Past Family History Mother Family Medical History: Cancer, Hypertension Additional Family Medical History / Comment(s): Thyroid cancer, bipolar Father Family Medical History: Seizure Disorder Additional Family Medical History / Comment(s): Epilepsy Medications and Allergies Home Medications Medication Instructions Recorded Confirmed Type Ergocalciferol (Vitamin D2) 1,250 mcg PO Q30D 04/03/21 02/16/22 History [Drisdol (50,000 Iu)] Isosorbide Mononitrate ER [Imdur] 30 mg PO HS 04/03/21 02/16/22 History carvediloL [Coreg] 25 mg PO BID 04/03/21 02/16/22 History Acetaminophen Tab [Tylenol] 650 mg PO Q6HR PRN #30 tab 04/09/21 02/16/22 Rx Escitalopram [Lexapro] 20 mg PO DAILY 04/17/21 02/16/22 History Glucagon Emergency Kit 1 mg IM ONCE PRN #1 kit 06/15/21 02/16/22 Rx Cyanocobalamin [Vitamin B-12] 1,000 mcg PO DAILY #60 tab 09/06/21 02/16/22 Rx Atorvastatin [Lipitor] 40 mg PO DAILY 30 Days #30 tab 10/13/21 02/16/22 Rx Calcium Acetate [PhosLo] 667 mg PO TID-W/MEALS 30 Days #90 10/13/21 02/16/22 Rx tab Pantoprazole Sodium [Protonix] 20 mg PO BID #30 tab 10/15/21 02/16/22 Rx Albuterol Inhaler [Ventolin Hfa 2 puff INHALATION RT-QID PRN 12/06/21 02/16/22 History Inhaler] Aspirin 81 mg PO DAILY 12/06/21 02/16/22 History Methoxy Peg-Epoetin Beta [Mircera] 200 mcg IVPB Q14D 12/06/21 02/16/22 History NIFEdipine XL [Procardia XL] 120 mg PO DAILY 12/06/21 02/16/22 History LORazepam [Ativan] 1 mg PO TID PRN #90 tab 12/09/21 02/16/22 Rx hydrOXYzine HCL [Atarax] 25 mg PO TID PRN #90 tab 12/09/21 02/16/22 Rx Insulin Aspart [NovoLOG Flexpen] See Protocol SQ TID-W/MEALS 12/21/21 02/16/22 History Insulin Detemir (Levemir) [Levemir] 13 unit SQ HS 12/21/21 02/16/22 History Melatonin [Melatonin Dissolving 10 mg PO HS 12/21/21 02/16/22 History Tablet] hydrALAZINE HCL [Apresoline] 100 mg PO TID 12/21/21 02/16/22 History rOPINIRole HCL [Requip] 1 mg PO HS 12/21/21 02/16/22 History cloNIDine HCL [Catapres] 0.3 mg PO TID PRN #90 tab 12/23/21 02/16/22 Rx Lidocaine-Prilocaine Cream [Emla 1 applic TOPICAL MOWEFR PRN 02/09/22 02/16/22 History Cream 2.5%/2.5%] Losartan Potassium 100 mg PO DAILY 02/09/22 02/16/22 History Prazosin [Minipress] 5 mg PO BID 02/09/22 02/16/22 History buPROPion SR [Wellbutrin SR] 150 mg PO BID 02/09/22 02/16/22 History Allergies Allergy/AdvReac Type Severity Reaction Status Date / Time Fish Containing Products Allergy Rash/Hives Verified 02/16/22 11:28 [Fish] iodine Allergy Anaphylaxis Verified 02/16/22 11:28 Physical Exam Vitals: Vital Signs Temp Pulse Pulse Resp BP BP Pulse Ox 02/18/22 11:00 02/18/22 08:00 98.2 F 75 20 98/53 96 02/18/22 07:11 02/18/22 07:00 76 20 98/53 97 02/18/22 06:00 79 20 96 02/18/22 05:00 80 20 99 02/18/22 04:00 100 F H 79 77 20 114/62 98 02/18/22 03:09 02/18/22 03:00 79 20 98 02/18/22 02:00 79 20 98 02/18/22 01:00 81 20 113/55 97 02/18/22 00:00 98.1 F 79 77 20 97 02/17/22 23:16 02/17/22 23:00 78 20 98 02/17/22 22:00 80 20 97 02/17/22 21:00 82 21 160/91 98 02/17/22 20:25 02/17/22 20:00 101.4 F H 86 22 149/75 98 02/17/22 19:38 77 21 02/17/22 19:00 85 21 98 02/17/22 18:30 87 22 98 02/17/22 18:00 100.6 F H 89 21 98 02/17/22 17:30 92 23 97 02/17/22 17:00 94 24 97 02/17/22 16:30 93 23 96 02/17/22 16:00 94 77 21 97 02/17/22 15:41 02/17/22 15:30 95 22 97 02/17/22 15:00 92 24 157/89 97 02/17/22 14:38 02/17/22 14:30 88 20 157/89 98 02/17/22 14:00 85 20 157/89 98 02/17/22 13:30 83 20 157/89 98 02/17/22 13:00 102.2 F H 82 20 99 02/17/22 12:57 98.0 F 77 20 131/63 02/17/22 12:30 81 20 157/89 98 02/17/22 12:00 80 77 24 100 FiO2 02/18/22 11:00 30 02/18/22 08:00 30 02/18/22 07:11 30 02/18/22 07:00 02/18/22 06:00 02/18/22 05:00 02/18/22 04:00 40 02/18/22 03:09 40 02/18/22 03:00 02/18/22 02:00 02/18/22 01:00 02/18/22 00:00 40 02/17/22 23:16 40 02/17/22 23:00 02/17/22 22:00 02/17/22 21:00 02/17/22 20:25 40 02/17/22 20:00 40 02/17/22 19:38 40 02/17/22 19:00 02/17/22 18:30 02/17/22 18:00 40 02/17/22 17:30 02/17/22 17:00 02/17/22 16:30 02/17/22 16:00 02/17/22 15:41 40 02/17/22 15:30 02/17/22 15:00 02/17/22 14:38 40 02/17/22 14:30 02/17/22 14:00 02/17/22 13:30 02/17/22 13:00 02/17/22 12:57 02/17/22 12:30 02/17/22 12:00 40 Intake and Output 02/17/22 02/18/22 02/18/22 22:59 06:59 14:59 Intake Total 428.472 335.811 140 Output Total 0 450 0 Balance 428.472 -114.189 140 Intake: IV 60 160 40 0.9 @ 20ml/hr 60 160 40 Intake, IV Titration 248.472 175.811 100 Amount Potassium Chloride 10 meq 100 In Water For Injection 1 100ml.bag @ 100 mls/hr IVPB Q1HR [facility] Rx#: [id number] propofoL 1,000 mg In 248.472 175.811 Empty Bag 1 bag @ 5 MCG/ KG/MIN 1.428 mls/hr IV . Q24H [facility] Rx#:[id number] Other 120 Output: Gastric Drainage 300 Urine 0 0 0 Stool 150 Other: Voiding Method Indwelling Catheter Indwelling Catheter # Bowel Movements 2 Weight 52.2 kg ABP, PAP, CO, CI - Last 8 Hours Arterial Blood Pressure 94/54 Arterial Blood Pressure 87/52 Arterial Blood Pressure 119/54 Arterial Blood Pressure 135/50 Arterial Blood Pressure 129/50 GENERAL DESCRIPTION: Middle-aged female intubated on the vent. No tachypnea or accessory muscle of respiration use. HEENT: Shows Pallor , no scleral icterus. Oral mucous membrane is dry. NECK: Trachea central, no thyromegaly. LUNGS: Unlabored breathing. Decreased breath sounds at the base. HEART: S1, S2, regular rate and rhythm. No loud murmur ABDOMEN: Soft, no tenderness , guarding or rigidity, no organomegaly EXTREMITIES: No edema of feet. SKIN: No rash, no masses palpable. NEUROLOGICAL: The patient is sedated on the vent Results CBC & Chem 7: 02/18/22 04:35 02/18/22 04:35 Labs: Abnormal Lab Results - Last 24 Hours (Table) 02/17/22 02/17/22 02/17/22 Range/Units 12:07 16:12 19:44 RBC (3.80-5.40) m/uL Hgb (11.4-16.0) gm/dL Hct (34.0-46.0) % RDW (11.5-15.5) % Plt Count (150-450) k/uL Lymphocytes # (Manual) (1.0-4.8) k/uL ABG pO2 (83-108) mmHg ABG HCO3 (21-25) mmol/L ABG Total CO2 (19-24) mmol/L ABG O2 Saturation (94-97) % Potassium (3.5-5.1) mmol/L Chloride (98-107) mmol/L BUN (7-17) mg/dL Creatinine (0.52-1.04) mg/dL Glucose (74-99) mg/dL POC Glucose (mg/dL) 149 H 317 H 250 H (70-110) mg/dL 02/18/22 02/18/22 02/18/22 Range/Units 00:05 04:35 04:35 RBC 2.62 L (3.80-5.40) m/uL Hgb 7.9 L (11.4-16.0) gm/dL Hct 22.3 L (34.0-46.0) % RDW 15.7 H (11.5-15.5) % Plt Count 93 L (150-450) k/uL Lymphocytes # (Manual) 0.20 L (1.0-4.8) k/uL ABG pO2 (83-108) mmHg ABG HCO3 (21-25) mmol/L ABG Total CO2 (19-24) mmol/L ABG O2 Saturation (94-97) % Potassium 3.4 L (3.5-5.1) mmol/L Chloride 96 L (98-107) mmol/L BUN 34 H (7-17) mg/dL Creatinine 4.39 H (0.52-1.04) mg/dL Glucose 200 H (74-99) mg/dL POC Glucose (mg/dL) 220 H (70-110) mg/dL 02/18/22 02/18/22 02/18/22 Range/Units 04:35 05:43 08:12 RBC (3.80-5.40) m/uL Hgb (11.4-16.0) gm/dL Hct (34.0-46.0) % RDW (11.5-15.5) % Plt Count (150-450) k/uL Lymphocytes # (Manual) (1.0-4.8) k/uL ABG pO2 119 H (83-108) mmHg ABG HCO3 26 H (21-25) mmol/L ABG Total CO2 27 H (19-24) mmol/L ABG O2 Saturation 98.7 H (94-97) % Potassium (3.5-5.1) mmol/L Chloride (98-107) mmol/L BUN (7-17) mg/dL Creatinine (0.52-1.04) mg/dL Glucose (74-99) mg/dL POC Glucose (mg/dL) 243 H 176 H (70-110) mg/dL Microbiology - Last 24 Hours (Table) 02/16/22 23:45 Gram Stain - Preliminary Sputum Sputum Culture - Preliminary Assessment and Plan (1) Fever Current Visit: No Status: Acute Code(s): R50.9 - FEVER, UNSPECIFIED SNOMED Code(s): 282480524 Plan: 1patient with a fever of 102 F in this patient presenting to the hospital with weakness patient was noticed to be bradycardic and did have a cardiac arrest with significant amount of oropharyngeal secretion and left-sided infiltrate concerning for possible aspiration pneumonitis. 2blood and sputum cultures will be followed 3we will empirically add Zosyn 3.375 g every 12 hours 4we will also check COVID and influenza PCR We will follow on clinical condition and cultures to further adjust medication if needed Thank you for this consultation will follow this patient along with you Time with Patient: Greater than 30
[2022-02-18 23:29] LABS: Glucose,Whole Blood 188 mg/dL (70-110)
--- NOTE | 2022-02-19 02:20 | HP ---
HISTORY AND PHYSICAL CHIEF COMPLAINT: Cardiorespiratory arrest. HISTORY OF PRESENT ILLNESS: This is another admission for this 31-year-old white female with stage 5 CKD, on dialysis secondary to poorly managed type 1 insulin-dependent diabetes mellitus. Apparently at home, she became weak and ambulance was summoned. When they got there, her pulse was in the 40s and her blood pressure was down into the 60s and 70s. She was brought to the emergency room where she was assessed and then she went into a cardiorespiratory arrest. REVIEW OF SYSTEMS: Unobtainable. Past medical history, family history, and personal and social histories are all otherwise presumed to be unchanged from her recent admitting discharge summaries. She has not been in the office since her last discharge. She is very noncompliant. PHYSICAL EXAMINATION: VITAL SIGNS: Blood pressure is 88/40 with a pulse of 55. GENERAL: She is on a ventilator. HEENT: Head, ears, eyes, nose normal. NECK: Veins are not distended. CHEST: Clear. CARDIAC: Exam demonstrated sinus rhythm with tachycardia. ABDOMEN: Soft and no masses. EXTREMITIES: Normal. IMPRESSION: 1. Cardiorespiratory arrest. 2. Stage 5 chronic kidney disease, on dialysis. 3. History of poorly controlled type 1 insulin-dependent diabetes mellitus. PLAN: 1. Bedrest. 2. Ventilator support. 3. Consult with intensive medicine and Nephrology for dialysis and hyperkalemia. MMODL / IJN: [id number] /
[2022-02-19 04:14] LABS: Glucose,Whole Blood 324 mg/dL (70-110)
[2022-02-19 04:17] LABS: Glucose,Whole Blood 267 mg/dL (70-110)
[2022-02-19] MEDS: INSULIN ASPART (NovoLOG) 100 UNIT/ML VIAL SQ SCH ×6 (04:20→23:59)
[2022-02-19 04:30] LABS: HCT 21.1 % (34.0-46.0); HGB 7.2 gm/dL (11.4-16.0); Hypochromasia Slight; MCH 28.9 pg (25.0-35.0); MCHC 34.1 g/dL (31.0-37.0); MCV 84.8 fL (80.0-100.0); Mean Platelet Volume 11.2; RBC 2.49 m/uL (3.80-5.40); RDW 15.6 % (11.5-15.5); WBC 4.8 k/uL (3.8-10.6)
[2022-02-19 04:36] LABS: Platelet Count 99 k/uL (150-450)
[2022-02-19 04:48] LABS: Albumin 3.2 g/dL (3.5-5.0); Potassium 4.7 mmol/L (3.5-5.1); Total Bilirubin 0.7 mg/dL (0.2-1.3); Total Protein 5.4 g/dL (6.3-8.2)
[2022-02-19 05:22] LABS: Band Neutrophils % 14 %; Lymphocytes # (M) 0.34 k/uL (1.0-4.8); Metamyelocytes # (M) 0.19 k/uL (0); Metamyelocytes % 4 %; Monocytes # (M) 0.19 k/uL (0-1.0); Neutrophils % (M) 72 %; Nucleated Red Blood Cells 0 /100 WBC (0-0); Total Cells Counted 200
[2022-02-19 05:26] LABS: Polychromasia Present
[2022-02-19 05:33] LABS: ABG Base Excess -6.8 mmol/L; ABG HCO3 19 mmol/L (21-25); ABG Oxygen Saturation 98.7 % (94-97); ABG PCO2 35 mmHg (35-45); ABG PH 7.35 (7.35-7.45); ABG PO2 123 mmHg (83-108); ABG TCO2 20 mmol/L (19-24)
--- NOTE | 2022-02-19 07:35 | XR ---
EXAMINATION TYPE: XR chest 1V portable DATE OF EXAM: 02/19/2022 COMPARISON: 02/18/2022 HISTORY: SOB, Follow Up FINDINGS: Indwelling tubes and catheters are unchanged. Increasing left lower lobe infiltrate. Stable appearance of the cardio-mediastinal structures at this time. IMPRESSION: 1. Stable portable chest. Clinical correlation and follow up until resolution is recommended.
[2022-02-19 08:04] LABS: Glucose,Whole Blood 239 mg/dL (70-110)
[2022-02-19] MEDS: LOSARTAN 50 MG TAB PO SCH (08:19)
--- NOTE | 2022-02-19 08:28 | P.PN ---
Subjective Progress Note Date: 02/19/22 31-year-old female patient with multiple medical present comorbidities. The patient is known to have type 1 diabetes mellitus, and the patient has end-stage renal disease and the patient is on hemodialysis. Blood sugar control with that over the years and the patient has had previous hospitalizations for pneumonia, missed dialysis, she is for hyperkalemia and fluid overload and pulmonary edema. She has also also been treated for hypertensive emergencies. The patient brought into the emergency department today as the patient was feeling lightheaded and dizzy and very weak. The patient was due for dialysis today. She is undergoing dialysis today. The patient was found to be bradycardic by EM S and the patient's heart rate was in the low 40s. She was brought into the emergency and she had a blood pressure 75/45 with a pulse ox of 90% on room air. Heart rate subsequently slowed down further went down to the 30s and following that the patient was feeling anxious and jittery denies having any chest pain. Subsequently, she goes into a cardiac arrest, asystole and the patient was resuscitated with a downtime estimated to be around 10 minutes. The patient went into asystole and CPR was initiated immediately. She did require intubation. I was also told that this was a difficult intubation as the patient has copious amount of frothy colored material in the posterior oropharynx which was suctioned out. During the course of her treatment, the patient was given hyperkalemia cocktail. The blood work came back with a sodium level of 128, potassium level was 5 and the patient had a chloride of 89 with a bicarb of 20 with a 53 and a creatinine of 7.52. The patient had a flexor count of 4.4 hemoglobin 8.7 and a platelet count of 175. The blood gases on 100% FiO2 showed a pH of 7.36 with a pCO2 of 38 and pO2 of 52. This was the blood gases was done immediately after intubation. The patient is currently in the intensive care unit on assist-control mode of mechanical ventilation at the rate of 20, tidal volume of 400, FiO2 of 100% with a PEEP of 8. Current pulse ox is 96%. The patient is sedated with propofol which is running at 50 mcg/kg per minute. The patient was also started on pressors for hypotension. Norepinephrine is running at 0.18 mcg/kg per minute. Post intubation chest x-ray showed cardiomegaly and pulmonary edema. ET tube is in a good location. The patient also has a orogastric tube which is in good location. She is arousable and she response to stimulation and she is moving all 4 extremities without any limitation.. On her blood work, the patient has a white cell count of 4.1 with a hemoglobin of 8.7 and a platelet count of 175. Her proBNP level was 49,200. Troponin was negative. Most recent blood sugar is at 562. 02/17/2022, seeing the patient for a follow-up. The patient remains intubated on a mechanical ventilator. The patient remains sedated on propofol which is running at 75 mcg/kg per minute. Yesterday late afternoon, the patient was felt to have some seizure like activity. This was not certain as the patient was hav ing some jerky body movements. The patient was given a total of 4 L of IV Ativan in follow-up. The patient was started on Keppra. CAT scan of the brain was done that showed hydrocephalus which is chronic and there is no acute abnormalities noted. No evidence of any bleeding. Note that the patient had a brief cardiac arrest due to asystole. In any rate, the patient is currently hypertensive and she is in a normal sinus rhythm. She was started on side effects after trying various antihypertensive medication and the patient is currently on Celebrex running at a dose of 8 mg per minute. Blood pressure is under better control for now with her most recent blood pressure being 138/57. The patient underwent hemodialysis yesterday with a total of 4 L of ultrafiltration. The patient remains on a mechanical ventilator. On today's evaluation of assist-control mode at the rate of 20 with a tidal volume of 400 and FiO2 of 60% with a PEEP of 12. Blood gases showed improvement in oxygenati on and the pO2 is 199. PH is at 7.46 with a pCO2 of 41. As such, there is improvement in oxygenation. There is improvement and acid base status. The patient's chest x-ray from today shows cardiomegaly. There is significant resolution of the pulmonary edema discussed earlier in the ET tube is in a good location. The patient also has a orogastric tube which is in great location. Potassium level is down to 3.5. Total of 146. Blood sugar today is 152. The patient was placed on an insulin drip yesterday and subsequently her blood sugars dropped and she was taken off insulin drip and currently she is on sliding scale insulin coverage every 4 hours. She remains nothing by mouth. Flores catheter is in place. Urine output is minimal. Calcium level is at 9.7. Phosphorus level is low at 1.0 and magnesium is at 1.9. In terms of her CBC, the white cell count from yesterday was 4.1 with a bilirubin of 8.7. 02/18/2022, the patient remains intubated on a mechanical ventilator. The pat ient is hemodynamically stable and the patient is on no pressors. The patient sedated with propofol which is running at 60 mg/kg/m. The patient has not had any seizure activity and the EEG that was done yesterday showed encephalopathy and diffuse slowing without any seizure-like activity. The patient was taken off Keppra. Meanwhile, the patient was having routine hemodialysis. The patient has already undergone dialysis yesterday and I think there are plans to do another session of hemodialysis today. She remains on a mechanical ventilator and she is quite synchronous patient is an assist-control mode at the rate of 20 with a tidal volume of 400 and FiO2 of 30% and a PEEP of 5. Has been considerable improvement in oxygenation and the chest x-ray also shows cardiomegaly. No acute abnormalities noted. ET tube remains in a good location. The patient's most recent blood work from this morning shows a pH of 7.44 with a pCO2 of 39 and pO2 112. Airway pressures are quite low at this point in time. As such, the patient was going to be taken off sedation and she'll be given a sedation holiday and her readiness to wean will be evaluated. Another issue is the ongoing episodes of temperature that the patient had throughout the day yesterday. The white second is not elevated at 4.0. The patient did have explosive liquidy diarrhea and the patient has a fecal management system in place. No antibiotic use at this point in time. Cultures of been sent. Stool for C. diff has been sent. Results are still pending for now. At the same time, the patient has been hemodynamically stable. No significant tachycardia. Sodium levels is 138 with a potassium level of 3.4, BUN is at 34 with a creatinine of 4.39. The white cell count is at 4 with a hemoglobin of 7.5. Cultures from the sputum was collected and results are still pending for now. In terms of her blood sugar control, the patient is on a sliding scale coverage. She's been adequately controlled for now. No long- acting insulin is being is less. No insulin drip is being is less for now. Her blood pressure is stable and she was started back on an antihypertensive medication pH was taken off the Catapres drip and the patient is well covered with a combination of as hypertensive medications including hydralazine 100 mg by mouth 3 times a day, Procardia XL 120 mg by mouth daily and prazosin 5 mg by mouth twice a day and Cozaar 1000 mg by mouth daily. Note that the clonidine and the beta rox was not restarted due to her underlying bradycardia at a time of admission. 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 The patient remains on propofol and currently propofol is running at 60 g subcu kilogram per minute. She is adequately sedated. She remains on a mechanical ventilator assist control mode at the rate of 20 with a tidal volume of 400 and FiO2 of 30% with PEEP of 5. Peak airway pressures 22. Blood pressure with a pH of 7.35 with a pCO2 of 35 and pO2 of 123. No pressors. No bradycardia. No fever today. Sputum was positive for strep group C and the patient was started on IV Zosyn yesterday. Blood cultures of been negative for now. She had a liquidy stool and a fecal management system has been applied. The stool for C. diff has been essentially negative for now. Her blood work today shows a potassium level of 4.7. Serum bicarbonate was at 16 probably related to her underlying diarrhea. He is a 55 with a creatinine of 6. White cell count is 4.8 with a hemoglobin of 7.2. Enteral feeding has been held due to her massive diarrhea for now. She is currently nothing by mouth. The plan is to proceed with hemodialysis and following that the patient may be potentially extubated. In terms of her blood pressure control, hydralazine will be discontinued due to concerns of pericardial effusion. The patient was also taken off the losartan due to concerns of episodic hyperkalemia. This has been discussed with the dog raiser. Objective - Vital Signs Vital signs: Vital Signs Temp 96.9 F L 02/19/22 04:00 Pulse 75 02/19/22 07:00 Resp 20 02/19/22 07:00 BP 127/82 02/19/22 07:00 Pulse Ox 97 02/19/22 07:00 FiO2 30 02/19/22 07:01 Intake & Output 02/18/22 02/19/22 02/19/22 18:59 06:59 18:59 Intake Total 687.806 424.505 10 Output Total 0 1300 0 Balance 687.806 -875.495 10 Weight 52.9 kg Intake: IV 180 180 10 0.9 @ 20ml/hr 180 180 10 Intake, IV Titration 507.806 244.505 Amount Piperacillin-Tazobactam 3 100 100 .375 gm In Sodium Chloride 0.9% 100 ml @ 25 mls/hr IVPB Q12HR@0000, 1200 [facility] Rx#:[id number] Potassium Chloride 10 meq 300 In Water For Injection 1 100ml.bag @ 100 mls/hr IVPB Q1HR [facility] Rx#: [id number] propofoL 1,000 mg In 107.806 144.505 Empty Bag 1 bag @ 5 MCG/ KG/MIN 1.428 mls/hr IV . Q24H [facility] Rx#:[id number] Output: Gastric Drainage 300 Urine 0 0 0 Stool 1000 Hemodialysis 0 Other: Voiding Method Indwelling Catheter Indwelling Catheter ABP, PAP, CO, CI - Last Documented Arterial Blood Pressure 143/68 - Exam GENERAL EXAM: Alert, pleasant, 30-year-old white female, resting in bed, the patient intubated on mechanical ventilator. The patient has an orogastric and orotracheal tube. The patient is currently intubated. The patient is sedated with propofol. HEAD: Normocephalic/atraumatic. EYES: Normal reaction of pupils, equal size. Conjunctiva pink, sclera white. NOSE: Clear with pink turbinates. THROAT: No erythema or exudates. NECK: No masses, no JVD, no thyroid enlargement, no adenopathy. CHEST: No chest wall deformity. Symmetrical expansion. LUNGS: Equal air entry with no crackles, wheeze, rhonchi or dullness. CVS: Regular rate and rhythm, normal S1 and S2, no gallops, no murmurs, no rubs ABDOMEN: Soft, nontender. No hepatosplenomegaly, normal bowel sounds, no guarding or rigidity. EXTREMITIES: No clubbing, no edema, no cyanosis, 2+ pulses and upper and lower extremities. left Arm AV fistula MUSCULOSKELETAL: Muscle strength and tone normal. SPINE: No scoliosis or deformity SKIN: No rashes CENTRAL NERVOUS SYSTEM: The patient is currently on propofol and the patient is sedated. The patient is withdrawing to painful stim additional 4 extremities. No facial asymmetry. Positive cough and a gag. Pupils around 8 mm in size, equal and symmetrical he is sluggish and reactive to light. No nystagmus no clonus. No Babinski. - Labs CBC & Chem 7: 02/19/22 04:15 02/19/22 04:15 Labs: Abnormal Lab Results - Last 24 Hours (Table) 02/18/22 02/18/22 02/18/22 Range/Units 12:03 15:05 17:37 RBC (3.80-5.40) m/uL Hgb (11.4-16.0) gm/dL Hct (34.0-46.0) % RDW (11.5-15.5) % Plt Count (150-450) k/uL Lymphocytes # (Manual) (1.0-4.8) k/uL Metamyelocytes # (Man) (0) k/uL ABG pO2 (83-108) mmHg ABG HCO3 (21-25) mmol/L ABG O2 Saturation (94-97) % Sodium (137-145) mmol/L Chloride (98-107) mmol/L Carbon Dioxide (22-30) mmol/L BUN (7-17) mg/dL Creatinine (0.52-1.04) mg/dL Glucose (74-99) mg/dL POC Glucose (mg/dL) 151 H 178 H 171 H (70-110) mg/dL Calcium (8.4-10.2) mg/dL AST (14-36) U/L ALT (4-34) U/L Alkaline Phosphatase (38-126) U/L Total Protein (6.3-8.2) g/dL Albumin (3.5-5.0) g/dL 02/18/22 02/18/22 02/19/22 Range/Units 19:55 23:28 04:12 RBC (3.80-5.40) m/uL Hgb (11.4-16.0) gm/dL Hct (34.0-46.0) % RDW (11.5-15.5) % Plt Count (150-450) k/uL Lymphocytes # (Manual) (1.0-4.8) k/uL Metamyelocytes # (Man) (0) k/uL ABG pO2 (83-108) mmHg ABG HCO3 (21-25) mmol/L ABG O2 Saturation (94-97) % Sodium (137-145) mmol/L Chloride (98-107) mmol/L Carbon Dioxide (22-30) mmol/L BUN (7-17) mg/dL Creatinine (0.52-1.04) mg/dL Glucose (74-99) mg/dL POC Glucose (mg/dL) 242 H 188 H 324 H (70-110) mg/dL Calcium (8.4-10.2) mg/dL AST (14-36) U/L ALT (4-34) U/L Alkaline Phosphatase (38-126) U/L Total Protein (6.3-8.2) g/dL Albumin (3.5-5.0) g/dL 02/19/22 02/19/22 02/19/22 Range/Units 04:15 04:15 04:15 RBC 2.49 L (3.80-5.40) m/uL Hgb 7.2 L (11.4-16.0) gm/dL Hct 21.1 L (34.0-46.0) % RDW 15.6 H (11.5-15.5) % Plt Count 99 L (150-450) k/uL Lymphocytes # (Manual) 0.34 L (1.0-4.8) k/uL Metamyelocytes # (Man) 0.19 H (0) k/uL ABG pO2 (83-108) mmHg ABG HCO3 (21-25) mmol/L ABG O2 Saturation (94-97) % Sodium 136 L (137-145) mmol/L Chloride 95 L (98-107) mmol/L Carbon Dioxide 16 L (22-30) mmol/L BUN 55 H (7-17) mg/dL Creatinine 6.05 H (0.52-1.04) mg/dL Glucose 298 H (74-99) mg/dL POC Glucose (mg/dL) 267 H (70-110) mg/dL Calcium 8.0 L (8.4-10.2) mg/dL AST 51 H (14-36) U/L ALT 52 H (4-34) U/L Alkaline Phosphatase 210 H (38-126) U/L Total Protein 5.4 L (6.3-8.2) g/dL Albumin 3.2 L (3.5-5.0) g/dL 02/19/22 02/19/22 Range/Units 05:31 08:03 RBC (3.80-5.40) m/uL Hgb (11.4-16.0) gm/dL Hct (34.0-46.0) % RDW (11.5-15.5) % Plt Count (150-450) k/uL Lymphocytes # (Manual) (1.0-4.8) k/uL Metamyelocytes # (Man) (0) k/uL ABG pO2 123 H (83-108) mmHg ABG HCO3 19 L (21-25) mmol/L ABG O2 Saturation 98.7 H (94-97) % Sodium (137-145) mmol/L Chloride (98-107) mmol/L Carbon Dioxide (22-30) mmol/L BUN (7-17) mg/dL Creatinine (0.52-1.04) mg/dL Glucose (74-99) mg/dL POC Glucose (mg/dL) 239 H (70-110) mg/dL Calcium (8.4-10.2) mg/dL AST (14-36) U/L ALT (4-34) U/L Alkaline Phosphatase (38-126) U/L Total Protein (6.3-8.2) g/dL Albumin (3.5-5.0) g/dL Microbiology - Last 24 Hours (Table) 02/18/22 13:43 Stool Culture - Preliminary Stool 02/16/22 23:45 Gram Stain - Preliminary Sputum Sputum Culture - Preliminary Beta Hemolytic Strep Group C Assessment and Plan Plan: Acute cardiopulmonary arrest, most likely due to a combination of fluid overload and hyperkalemia that started off with bradycardia and subsequently the patient went into asystole. The downtime was limited. The patient had a high potassium level in the same time the patient was taking beta blockers clonidine and losartan. Better luck is and clonidine can cause bradycardia and losartan contributing to her hyperkalemia. Acute hypoxic respiratory failure, oxygenation improved. The patient remains on a mechanical ventilator. Chest x-ray shows no acute abnormalities. There is some cardiomegaly and mild four-vessel congestion. Nevertheless, the patient is actually taking adequately. Severe bradycardia followed by cardiac arrest, likely secondary to acute hyperkalemia, recovered and the patient is currently in normal sinus rhythm. Note that the patient was taking Coreg and clonidine which could've also contributed to her bradycardia, recovered Hypotension post cardiac arrest, recovered Moderate pericardial effusion, no signs of any cardiac tamponade she is able Acute hypoxic respiratory failure, currently intubated on a mechanical ventilator, chest x-rays consistent with pulmonary edema, improved Questionable seizure activity. The patient had a CAT scan of the brain that showed hydrocephalus. The EEG was done and showed no evidence of any seizure activity and the patient was taken off the Keppra Acute pulmonary edema/volume overload, improved End-stage renal disease to receive hemodialysis on Monday Diabetes mellitus type 1 with brittle blood sugar control. Patient is currently on a scale insulin coverage. Hypertension and hypertensive heart disease. Ejection fraction of around 50- 55%. Moderate increase in the LV wall thickness related to chronic hypertension there was also mild pulmonary hypertension. Previous history of hyperkalemia requiring hemodialysis. The potassium level improved and the patient potassium normalized post dialysis , the patient was taken off lisinopril due to concerns of episodic hyperkalemia. Chronic anemia Previous hospitalization for hypertensive emergency due to missed dialysis Recent moderate circumferential pericardial effusion Recent hospitalization for bilateral pneumonia, discharged on 09/06/2021 History of CVA/TIA History of COVID-19 infection in May 2021 Episodes of fever, sputum is positive for strep group C the patient is currently on IV Zosyn. Afebrile for now. Acute diarrhea , has a fecal management system in place Plan I am very much interested extubating this patient today. We had issues yesterday by her delay in her arousal once propofol and she also has some hemodynamic issues. I'm hoping that on today's evaluation, were not going to encounter similar problems. The patient will complete hemodialysis today, total of 3 hours with probably 2 L of ultrafiltration. Intermittent dialysis, would suggest stopping the propofol, I think seeing weaning parameters and possible extubation immediately after dialysis is over. Continue IV Zosyn No enteral feeding for now Monitor diarrhea and the blood culture was sent, sputum culture was sent, stool will be checked for C. diff No seizure activity has been noted. EEG was negative and the patient will be taken off the Keppra Blood pressure control is adequate for now Dialysis by nephrology Echo was ordered Possible exhibition today depending on her condition Hold losartan due to concerns of hyperkalemia. Hold hydralazine due to concerns of pericardial effusion. The patient does have moderate amount of pericardial effusion for now which is probably related to her chronic renal failure and uremia. No signs of temp 1. We'll continue to follow make further recommendations based on progress. Possible extubation today Critically care evaluation, more than 30 minutes. Time with Patient: Greater than 30
--- NOTE | 2022-02-19 08:50 | P.PN ---
Subjective Patient is seen in follow-up for end-stage renal disease. Intubated. Tolerating dialysis well. Plan for extubation today. Blood pressure control led. Vital signs are stable. General: Intubated. HEENT: Head exam is unremarkable. LUNGS: Breath sounds decreased. HEART: Rate and Rhythm are regular. ABDOMEN: Soft, no distention. EXTREMITITES: No edema. Objective - Vital Signs Vital signs: Vital Signs Temp 96.9 F L 02/19/22 04:00 Pulse 75 02/19/22 07:00 Resp 20 02/19/22 07:00 BP 127/82 02/19/22 07:00 Pulse Ox 97 02/19/22 07:00 FiO2 30 02/19/22 07:01 Intake & Output 02/18/22 02/19/22 02/19/22 18:59 06:59 18:59 Intake Total 687.806 424.505 10 Output Total 0 1300 0 Balance 687.806 -875.495 10 Weight 52.9 kg Intake: IV 180 180 10 0.9 @ 20ml/hr 180 180 10 Intake, IV Titration 507.806 244.505 Amount Piperacillin-Tazobactam 3 100 100 .375 gm In Sodium Chloride 0.9% 100 ml @ 25 mls/hr IVPB Q12HR@0000, 1200 [facility] Rx#:[id number] Potassium Chloride 10 meq 300 In Water For Injection 1 100ml.bag @ 100 mls/hr IVPB Q1HR [facility] Rx#: [id number] propofoL 1,000 mg In 107.806 144.505 Empty Bag 1 bag @ 5 MCG/ KG/MIN 1.428 mls/hr IV . Q24H [facility] Rx#:[id number] Output: Gastric Drainage 300 Urine 0 0 0 Stool 1000 Hemodialysis 0 Other: Voiding Method Indwelling Catheter Indwelling Catheter ABP, PAP, CO, CI - Last Documented Arterial Blood Pressure 143/68 - Labs CBC & Chem 7: 02/19/22 04:15 02/19/22 04:15 Labs: Abnormal Lab Results - Last 24 Hours (Table) 02/18/22 02/18/22 02/18/22 Range/Units 12:03 15:05 17:37 RBC (3.80-5.40) m/uL Hgb (11.4-16.0) gm/dL Hct (34.0-46.0) % RDW (11.5-15.5) % Plt Count (150-450) k/uL Lymphocytes # (Manual) (1.0-4.8) k/uL Metamyelocytes # (Man) (0) k/uL ABG pO2 (83-108) mmHg ABG HCO3 (21-25) mmol/L ABG O2 Saturation (94-97) % Sodium (137-145) mmol/L Chloride (98-107) mmol/L Carbon Dioxide (22-30) mmol/L BUN (7-17) mg/dL Creatinine (0.52-1.04) mg/dL Glucose (74-99) mg/dL POC Glucose (mg/dL) 151 H 178 H 171 H (70-110) mg/dL Calcium (8.4-10.2) mg/dL AST (14-36) U/L ALT (4-34) U/L Alkaline Phosphatase (38-126) U/L Total Protein (6.3-8.2) g/dL Albumin (3.5-5.0) g/dL 02/18/22 02/18/22 02/19/22 Range/Units 19:55 23:28 04:12 RBC (3.80-5.40) m/uL Hgb (11.4-16.0) gm/dL Hct (34.0-46.0) % RDW (11.5-15.5) % Plt Count (150-450) k/uL Lymphocytes # (Manual) (1.0-4.8) k/uL Metamyelocytes # (Man) (0) k/uL ABG pO2 (83-108) mmHg ABG HCO3 (21-25) mmol/L ABG O2 Saturation (94-97) % Sodium (137-145) mmol/L Chloride (98-107) mmol/L Carbon Dioxide (22-30) mmol/L BUN (7-17) mg/dL Creatinine (0.52-1.04) mg/dL Glucose (74-99) mg/dL POC Glucose (mg/dL) 242 H 188 H 324 H (70-110) mg/dL Calcium (8.4-10.2) mg/dL AST (14-36) U/L ALT (4-34) U/L Alkaline Phosphatase (38-126) U/L Total Protein (6.3-8.2) g/dL Albumin (3.5-5.0) g/dL 02/19/22 02/19/22 02/19/22 Range/Units 04:15 04:15 04:15 RBC 2.49 L (3.80-5.40) m/uL Hgb 7.2 L (11.4-16.0) gm/dL Hct 21.1 L (34.0-46.0) % RDW 15.6 H (11.5-15.5) % Plt Count 99 L (150-450) k/uL Lymphocytes # (Manual) 0.34 L (1.0-4.8) k/uL Metamyelocytes # (Man) 0.19 H (0) k/uL ABG pO2 (83-108) mmHg ABG HCO3 (21-25) mmol/L ABG O2 Saturation (94-97) % Sodium 136 L (137-145) mmol/L Chloride 95 L (98-107) mmol/L Carbon Dioxide 16 L (22-30) mmol/L BUN 55 H (7-17) mg/dL Creatinine 6.05 H (0.52-1.04) mg/dL Glucose 298 H (74-99) mg/dL POC Glucose (mg/dL) 267 H (70-110) mg/dL Calcium 8.0 L (8.4-10.2) mg/dL AST 51 H (14-36) U/L ALT 52 H (4-34) U/L Alkaline Phosphatase 210 H (38-126) U/L Total Protein 5.4 L (6.3-8.2) g/dL Albumin 3.2 L (3.5-5.0) g/dL 02/19/22 02/19/22 Range/Units 05:31 08:03 RBC (3.80-5.40) m/uL Hgb (11.4-16.0) gm/dL Hct (34.0-46.0) % RDW (11.5-15.5) % Plt Count (150-450) k/uL Lymphocytes # (Manual) (1.0-4.8) k/uL Metamyelocytes # (Man) (0) k/uL ABG pO2 123 H (83-108) mmHg ABG HCO3 19 L (21-25) mmol/L ABG O2 Saturation 98.7 H (94-97) % Sodium (137-145) mmol/L Chloride (98-107) mmol/L Carbon Dioxide (22-30) mmol/L BUN (7-17) mg/dL Creatinine (0.52-1.04) mg/dL Glucose (74-99) mg/dL POC Glucose (mg/dL) 239 H (70-110) mg/dL Calcium (8.4-10.2) mg/dL AST (14-36) U/L ALT (4-34) U/L Alkaline Phosphatase (38-126) U/L Total Protein (6.3-8.2) g/dL Albumin (3.5-5.0) g/dL Microbiology - Last 24 Hours (Table) 02/18/22 13:43 Stool Culture - Preliminary Stool 02/16/22 23:45 Gram Stain - Preliminary Sputum Sputum Culture - Preliminary Beta Hemolytic Strep Group C Assessment and Plan Plan: Assessment: 1. End-stage renal disease maintained on hemodialysis on Monday schedule. 2. Status post cardiac arrest. Patient was hyperkalemic and bradycardic. 3. Hyperkalemia secondary to chronic kidney disease and hyperglycemia. 4. Metabolic acidosis secondary to chronic kidney disease. Expect improvement post dialysis. 5. Volume overload. Improved with ultrafiltration. 6. Chronic diastolic CHF. 7. Pericardial effusion. Antihistone antibodies positive in the past. 8. Anemia of chronic kidney disease. 9. Hypertension with chronic kidney disease. Plan: Currently seen while undergoing hemodialysis. Plan for extubation today. Check iron studies. Add Aranesp. Avoid minoxidil and hydralazine due to pericardial effusion. Avoid medicines that can raise potassium levels including Acei/ARB and spironolactone. Life-threatening risks including cardiac arrest associated with hyperkalemia and severely uncontrolled blood sugars have been discussed with the patient multiple times.
--- NOTE | 2022-02-19 09:26 | PN ---
PROGRESS NOTE CHIEF COMPLAINT: Cardiac arrest with respiratory failure. HISTORY OF PRESENT ILLNESS: This lady is still on a ventilator. She has been dialyzed. She is having watery stool and she is running low-grade temperatures. Etiology for those are unclear. PHYSICAL EXAMINATION: VITALS SIGNS: At this time are normal. She has good breath sounds bilaterally on the ventilator. CARDIAC: Exam is normal. ABDOMEN: Soft and does not seem to be tender. There is no firmness and there is no visceromegaly. IMPRESSION: 1. Cardiorespiratory arrest. 2. Chronic renal failure. 3. Uncontrolled type 1 insulin-dependent diabetes mellitus. 4. Diarrhea. 5. FUO. PLAN: 1. Stool for C diff and culture. 2. Blood culture. 3. Consult Infectious Disease. 4. Continue to follow with her ICU management. MMODL / IJN: [id number] /
--- NOTE | 2022-02-19 09:32 | PN ---
PROGRESS NOTE CHIEF COMPLAINT: Cardiac arrest and respiratory failure. HISTORY OF PRESENT ILLNESS: This lady remains on the ventilator. There is some question as to whether or not she has had some seizure activity. She is being dialyzed. PHYSICAL EXAMINATION: VITAL SIGNS: Normal. CHEST: Clear. CARDIAC: Demonstrates her sinus rhythm. ABDOMEN: Soft and there are no masses. EXTREMITIES: Appear perfused. IMPRESSION: 1. Cardiorespiratory arrest. 2. Possible seizure activity. 3. Concern for anoxic brain injury. 4. Chronic renal failure. 5. Type 1 insulin-dependent diabetes mellitus. PLAN: Continue with further evaluation and intensive care management on ventilator. MMODL / IJN: [id number] /
[2022-02-19] MEDS: CHLORHEXIDINE GLUCONATE 15 ML CUP MUCOUS MEM SCH ×2 (10:06→20:49)
[2022-02-19] MEDS: PANTOPRAZOLE 40 MG/10 ML VIAL IV SCH (10:06)
[2022-02-19] MEDS: buPROPion SR 150 MG TABLET.ER PO SCH ×2 (10:07→21:08)
[2022-02-19] MEDS: ESCITALOPRAM 20 MG TAB PO SCH (10:07)
[2022-02-19] MEDS: ASPIRIN 81 MG PO SCH (10:07)
[2022-02-19] MEDS: ATORVASTATIN 40 MG TAB PO SCH (10:07)
[2022-02-19] MEDS: NOREPINEPHRINE 4 MG in SODIUM CHLORIDE 0.9% 250 ML IV SCH (11:05)
[2022-02-19 11:38] LABS: Glucose,Whole Blood 145 mg/dL (70-110)
[2022-02-19] MEDS: PIPERACILLIN-TAZOBACTAM 3.375 GM in SODIUM CHLORIDE 0.9% 100 ML IVPB SCH ×2 (12:19→23:59)
[2022-02-19] MEDS: CLEVIDIPINE BUTYRATE 25 MG in EMPTY BAG 1 BAG IV SCH (14:22)
[2022-02-19] MEDS: PRAZOSIN 1 MG CAP PO SCH ×3 (14:23→21:08)
--- NOTE | 2022-02-19 14:57 | P.PN ---
Subjective Progress Note Date: 02/18/22 Patient was seen for a follow-up. There was plan to extubate her, but patient developed tachypnea, respiratory rate went up to 40 with very low volume, therefore it is deferred until tomorrow. She was on Precedex, but now started on propofol. Patient currently on propofol 70 mcg/kg/m. No seizure-like activity noted. However when the sedation is decreased, patient does follow commands. Objective - Vital Signs Vital signs: Vital Signs Temp 102 F H 02/18/22 16:00 Pulse 84 02/18/22 19:00 Resp 22 02/18/22 19:00 BP 133/74 02/18/22 19:00 Pulse Ox 97 02/18/22 19:00 FiO2 30 02/18/22 16:00 Intake & Output 02/18/22 02/18/22 02/19/22 06:59 18:59 06:59 Intake Total 468.639 687.806 69.940 Output Total 450 0 0 Balance 18.639 687.806 69.940 Weight 52.2 kg Intake: IV 220 180 40 0.9 @ 20ml/hr 220 180 40 Intake, IV Titration 248.639 507.806 29.940 Amount Piperacillin-Tazobactam 3 100 .375 gm In Sodium Chloride 0.9% 100 ml @ 25 mls/hr IVPB Q12HR@0000, 1200 [facility] Rx#:[id number] Potassium Chloride 10 meq 300 In Water For Injection 1 100ml.bag @ 100 mls/hr IVPB Q1HR [facility] Rx#: [id number] propofoL 1,000 mg In 248.639 107.806 29.940 Empty Bag 1 bag @ 5 MCG/ KG/MIN 1.428 mls/hr IV . Q24H [facility] Rx#:[id number] Output: Gastric Drainage 300 Urine 0 0 0 Stool 150 Hemodialysis 0 Other: Voiding Method Indwelling Catheter Indwelling Catheter # Bowel Movements 2 ABP, PAP, CO, CI - Last Documented Arterial Blood Pressure 124/54 - Exam Patient is intubated, sedated. Patient apparently is legally blind. Her pupils are dilated about 6 mm, nonreactive. This was noted yesterday as well. Oculocephalics are absent. Patient does have a cough, gag and breathes over the ventilator, although at this time she is synchronous to the respirator because of amount of sedation. Patient not following commands at this time, because being on sedation. Deep tendon reflexes are symmetric, 1+ to 2 in the upper limbs, 3 at the knees, plantars are upgoing bilaterally. Sensory to touch cannot be assessed. No obvious seizure-like activity noted. Chest is clear. Abdomen is soft. Nontender. No peripheral edema. No c yanosis, or clubbing. - Labs CBC & Chem 7: 02/19/22 04:15 02/19/22 04:15 Labs: Abnormal Lab Results - Last 24 Hours (Table) 02/18/22 02/18/22 02/18/22 Range/Units 00:05 04:35 04:35 RBC 2.62 L (3.80-5.40) m/uL Hgb 7.9 L (11.4-16.0) gm/dL Hct 22.3 L (34.0-46.0) % RDW 15.7 H (11.5-15.5) % Plt Count 93 L (150-450) k/uL Lymphocytes # (Manual) 0.20 L (1.0-4.8) k/uL ABG pO2 (83-108) mmHg ABG HCO3 (21-25) mmol/L ABG Total CO2 (19-24) mmol/L ABG O2 Saturation (94-97) % Potassium 3.4 L (3.5-5.1) mmol/L Chloride 96 L (98-107) mmol/L BUN 34 H (7-17) mg/dL Creatinine 4.39 H (0.52-1.04) mg/dL Glucose 200 H (74-99) mg/dL POC Glucose (mg/dL) 220 H (70-110) mg/dL 02/18/22 02/18/22 02/18/22 Range/Units 04:35 05:43 08:12 RBC (3.80-5.40) m/uL Hgb (11.4-16.0) gm/dL Hct (34.0-46.0) % RDW (11.5-15.5) % Plt Count (150-450) k/uL Lymphocytes # (Manual) (1.0-4.8) k/uL ABG pO2 119 H (83-108) mmHg ABG HCO3 26 H (21-25) mmol/L ABG Total CO2 27 H (19-24) mmol/L ABG O2 Saturation 98.7 H (94-97) % Potassium (3.5-5.1) mmol/L Chloride (98-107) mmol/L BUN (7-17) mg/dL Creatinine (0.52-1.04) mg/dL Glucose (74-99) mg/dL POC Glucose (mg/dL) 243 H 176 H (70-110) mg/dL 02/18/22 02/18/22 02/18/22 Range/Units 12:03 15:05 17:37 RBC (3.80-5.40) m/uL Hgb (11.4-16.0) gm/dL Hct (34.0-46.0) % RDW (11.5-15.5) % Plt Count (150-450) k/uL Lymphocytes # (Manual) (1.0-4.8) k/uL ABG pO2 (83-108) mmHg ABG HCO3 (21-25) mmol/L ABG Total CO2 (19-24) mmol/L ABG O2 Saturation (94-97) % Potassium (3.5-5.1) mmol/L Chloride (98-107) mmol/L BUN (7-17) mg/dL Creatinine (0.52-1.04) mg/dL Glucose (74-99) mg/dL POC Glucose (mg/dL) 151 H 178 H 171 H (70-110) mg/dL 02/18/22 Range/Units 19:55 RBC (3.80-5.40) m/uL Hgb (11.4-16.0) gm/dL Hct (34.0-46.0) % RDW (11.5-15.5) % Plt Count (150-450) k/uL Lymphocytes # (Manual) (1.0-4.8) k/uL ABG pO2 (83-108) mmHg ABG HCO3 (21-25) mmol/L ABG Total CO2 (19-24) mmol/L ABG O2 Saturation (94-97) % Potassium (3.5-5.1) mmol/L Chloride (98-107) mmol/L BUN (7-17) mg/dL Creatinine (0.52-1.04) mg/dL Glucose (74-99) mg/dL POC Glucose (mg/dL) 242 H (70-110) mg/dL Microbiology - Last 24 Hours (Table) 02/18/22 13:43 Stool Culture - Preliminary Stool 02/16/22 23:45 Gram Stain - Preliminary Sputum Sputum Culture - Preliminary Beta Hemolytic Strep Group C Assessment and Plan Assessment: * Acute cardiopulmonary arrest, likely due to underlying cardiopulmonary/renal/metabolic condition. Downtime reported about 5 minutes. Patient on high-dose sedation at this time. Exam is limited. * Seizure-like activity noted by the ICU staff. Patient started on Keppra. At present patient is tremulous, likely metabolic. No seizure-like activity noticed at this time. * Abnormal CT head, with evidence of communicating hydrocephalus, likely chronic. No change from previous CT head. * Hyperkalemia, resolved * Acute pulmonary edema/volume overload * End-stage renal disease, on hemodialysis Monday. * Diabetes type 1, noncompliant with medication. Came with uncontrolled blood sugar. * Hypertension * Chronic anemia Plan: * EEG 02/17/2022 probably an abnormal sleep study due to some intermittent generalized suppression, which could be related to encephalopathy or medication effect. No epileptiform activity was seen. * Patient has received Keppra 1000 mg IV last night. Keppra discontinued because no seizure activity noted on the EEG. * Neurologically clear to be weaned off sedation and trial to extubate, if medically stable. * Treatment of other medical conditions as per IM/critical care. * Neurology will follow. Discussed with the nurse in detail.
[2022-02-19] MEDS: ONDANSETRON 4 MG/2 ML VIAL IVP PRN (16:29)
[2022-02-19 16:49] LABS: Glucose,Whole Blood 226 mg/dL (70-110)
[2022-02-19 20:03] LABS: Glucose,Whole Blood 186 mg/dL (70-110)
[2022-02-19] MEDS: SODIUM CHLORIDE 0.9% 1,000 ML IV SCH (20:58)
[2022-02-19 22:47] LABS: % Iron Saturation 24.19 (12.00-45.00)
[2022-02-19 23:50] LABS: Glucose,Whole Blood 283 mg/dL (70-110)
[2022-02-19] MEDS: HYDROmorphone 1 MG/ML 1 ML SYRINGE IVP PRN (23:58)
[2022-02-20] MEDS: CLEVIDIPINE BUTYRATE 25 MG in EMPTY BAG 1 BAG IV SCH (01:38)
[2022-02-20 04:05] LABS: Glucose,Whole Blood 166 mg/dL (70-110)
[2022-02-20] MEDS: INSULIN ASPART (NovoLOG) 100 UNIT/ML VIAL SQ SCH ×5 (04:19→20:10)
[2022-02-20 04:31] LABS: Basophils % (A) 0 %; Eosinophils # (A) 0.1 k/uL (0-0.7); Eosinophils % (A) 1 %; HCT 22.2 % (34.0-46.0); HGB 7.2 gm/dL (11.4-16.0); Hypochromasia Slight; Lymphocytes # (A) 0.5 k/uL (1.0-4.8); Lymphocytes % (A) 9 %; MCH 27.5 pg (25.0-35.0); MCHC 32.6 g/dL (31.0-37.0); MCV 84.3 fL (80.0-100.0); Mean Platelet Volume 10.4; Monocytes # (A) 0.2 k/uL (0-1.0); Monocytes % (A) 4 %; Neutrophils # (A) 4.6 k/uL (1.3-7.7); Neutrophils % (A) 84 %; Platelet Count 141 k/uL (150-450); RBC 2.64 m/uL (3.80-5.40); RDW 15.7 % (11.5-15.5); WBC 5.5 k/uL (3.8-10.6)
[2022-02-20 04:54] LABS: Albumin 3.4 g/dL (3.5-5.0); Calcium 8.8 mg/dL (8.4-10.2); Potassium 3.5 mmol/L (3.5-5.1); Total Bilirubin 0.9 mg/dL (0.2-1.3); Total Protein 5.8 g/dL (6.3-8.2)
[2022-02-20] MEDS: POTASSIUM CHLORIDE 10 MEQ in WATER FOR INJECTION 1 100ML.BAG IVPB SCH ×2 (05:46→06:52)
--- NOTE | 2022-02-20 06:29 | PN ---
PROGRESS NOTE CHIEF COMPLAINT: Cardiorespiratory arrest. HISTORY OF PRESENT ILLNESS: This lady is extubated. She is still quite lethargic. She is breathing on her own, but respirations are erratic. PHYSICAL EXAMINATION: VITAL SIGNS: Normal. CHEST: Demonstrates rhonchi bilaterally. CARDIAC: Demonstrates her systolic murmur. ABDOMEN: Soft. IMPRESSION: 1. Status post cardiorespiratory arrest. 2. Stage 5 chronic kidney disease. 3. Type 1 insulin-dependent diabetes mellitus. 4. Cardiac murmur. PLAN: Continue to monitor in ICU until she becomes more alert and functional and can be transferred out to a regular floor. MMODL / IJN: [id number] /
--- NOTE | 2022-02-20 07:32 | XR ---
EXAMINATION TYPE: XR chest 1V portable DATE OF EXAM: 02/20/2022 COMPARISON: 02/19/2022 HISTORY: Chest pain TECHNIQUE: Single frontal view of the chest is obtained. FINDINGS: Endotracheal and NG tubes have been removed. Persistent perihilar infiltrates and mild cardiomegaly. Hilar and mediastinal structures are stable. The osseous structures are intact. IMPRESSION: 1. Persistent perihilar infiltrates and mild cardiomegaly.
[2022-02-20 08:41] LABS: Glucose,Whole Blood 317 mg/dL (70-110)
[2022-02-20] MEDS: DARBEPOETIN ALFA 40 MCG/0.4 ML SYRINGE SQ SCH (08:51)
[2022-02-20] MEDS: PANTOPRAZOLE 40 MG/10 ML VIAL IV SCH (08:51)
[2022-02-20] MEDS: PRAZOSIN 1 MG CAP PO SCH ×2 (08:52→20:02)
[2022-02-20] MEDS: CHLORHEXIDINE GLUCONATE 15 ML CUP MUCOUS MEM SCH ×2 (08:53→20:02)
[2022-02-20] MEDS: ATORVASTATIN 40 MG TAB PO SCH (08:53)
[2022-02-20] MEDS: ASPIRIN 81 MG PO SCH (08:53)
[2022-02-20] MEDS: buPROPion SR 150 MG TABLET.ER PO SCH ×2 (08:53→20:11)
[2022-02-20] MEDS: ESCITALOPRAM 20 MG TAB PO SCH (08:55)
--- NOTE | 2022-02-20 09:10 | P.PN ---
Subjective Patient is seen in follow-up for end-stage renal disease. Had dialysis yesterday. Extubated yesterday. Resting in bed. No active complaints. Vital signs are stable. General: Resting in bed. HEENT: Head exam is unremarkable. On nasal cannula. LUNGS: Breath sounds decreased. HEART: Rate and Rhythm are regular. ABDOMEN: Soft, no distention. EXTREMITITES: No edema. Objective - Vital Signs Vital signs: Vital Signs Temp 97.6 F 02/20/22 04:00 Pulse 92 02/20/22 07:00 Resp 18 02/20/22 07:00 BP 141/84 02/20/22 06:45 Pulse Ox 98 02/20/22 07:00 FiO2 30 02/19/22 12:00 Intake & Output 02/19/22 02/20/22 02/20/22 18:59 06:59 18:59 Intake Total 508.976 279.6 10 Output Total 7000 0 0 Balance -6491.024 279.6 10 Weight 53.9 kg Intake: IV 120 120 10 0.9 @ 20ml/hr 120 120 10 Intake, IV Titration 88.976 159.6 Amount Clevidipine Butyrate 25 0.400 59.6 mg In Empty Bag 1 bag @ 1 MG/HR 2 mls/hr IV .Q24H [facility] Rx#:[id number] Piperacillin-Tazobactam 3 100 .375 gm In Sodium Chloride 0.9% 100 ml @ 25 mls/hr IVPB Q12HR@0000, 1200 [facility] Rx#:[id number] propofoL 1,000 mg In 88.576 Empty Bag 1 bag @ 5 MCG/ KG/MIN 1.428 mls/hr IV . Q24H [facility] Rx#:[id number] Hemodialysis 300 Output: Urine 0 0 0 Stool 4500 Hemodialysis 2500 Other: Voiding Method Indwelling Catheter Indwelling Catheter # Voids 0 0 ABP, PAP, CO, CI - Last Documented Arterial Blood Pressure 134/58 - Labs CBC & Chem 7: 02/20/22 04:15 02/20/22 04:15 Labs: Abnormal Lab Results - Last 24 Hours (Table) 02/19/22 02/19/22 02/19/22 Range/Units 04:15 11:37 16:47 RBC (3.80-5.40) m/uL Hgb (11.4-16.0) gm/dL Hct (34.0-46.0) % RDW (11.5-15.5) % Plt Count (150-450) k/uL Lymphocytes # (1.0-4.8) k/uL Chloride (98-107) mmol/L Carbon Dioxide (22-30) mmol/L BUN (7-17) mg/dL Creatinine (0.52-1.04) mg/dL Glucose (74-99) mg/dL POC Glucose (mg/dL) 145 H 226 H (70-110) mg/dL Iron 40 L (50-170) ug/dL TIBC 167 L (228-460) ug/dL Transferrin 119.0 L (204.0-354.0) mg/dL Ferritin 6501.0 H (10.0-291.0) ng/mL AST (14-36) U/L ALT (4-34) U/L Alkaline Phosphatase (38-126) U/L Total Protein (6.3-8.2) g/dL Albumin (3.5-5.0) g/dL 02/19/22 02/19/22 02/20/22 Range/Units 20:02 23:48 04:03 RBC (3.80-5.40) m/uL Hgb (11.4-16.0) gm/dL Hct (34.0-46.0) % RDW (11.5-15.5) % Plt Count (150-450) k/uL Lymphocytes # (1.0-4.8) k/uL Chloride (98-107) mmol/L Carbon Dioxide (22-30) mmol/L BUN (7-17) mg/dL Creatinine (0.52-1.04) mg/dL Glucose (74-99) mg/dL POC Glucose (mg/dL) 186 H 283 H 166 H (70-110) mg/dL Iron (50-170) ug/dL TIBC (228-460) ug/dL Transferrin (204.0-354.0) mg/dL Ferritin (10.0-291.0) ng/mL AST (14-36) U/L ALT (4-34) U/L Alkaline Phosphatase (38-126) U/L Total Protein (6.3-8.2) g/dL Albumin (3.5-5.0) g/dL 02/20/22 02/20/22 02/20/22 Range/Units 04:15 04:15 08:38 RBC 2.64 L (3.80-5.40) m/uL Hgb 7.2 L (11.4-16.0) gm/dL Hct 22.2 L (34.0-46.0) % RDW 15.7 H (11.5-15.5) % Plt Count 141 L (150-450) k/uL Lymphocytes # 0.5 L (1.0-4.8) k/uL Chloride 97 L (98-107) mmol/L Carbon Dioxide 21 L (22-30) mmol/L BUN 48 H (7-17) mg/dL Creatinine 4.89 H (0.52-1.04) mg/dL Glucose 155 H (74-99) mg/dL POC Glucose (mg/dL) 317 H (70-110) mg/dL Iron (50-170) ug/dL TIBC (228-460) ug/dL Transferrin (204.0-354.0) mg/dL Ferritin (10.0-291.0) ng/mL AST 74 H (14-36) U/L ALT 53 H (4-34) U/L Alkaline Phosphatase 256 H (38-126) U/L Total Protein 5.8 L (6.3-8.2) g/dL Albumin 3.4 L (3.5-5.0) g/dL Microbiology - Last 24 Hours (Table) 02/18/22 10:54 Blood Culture - Preliminary Blood No Growth after 24 hours 02/16/22 23:45 Gram Stain - Final Sputum Sputum Culture - Final Beta Hemolytic Strep Group C Assessment and Plan Plan: Assessment: 1. End-stage renal disease maintained on hemodialysis on Monday schedule. 2. Status post cardiac arrest. Patient was hyperkalemic and bradycardic. 3. Hyperkalemia secondary to chronic kidney disease and hyperglycemia. Resolved. Now potassium on the lower side and was replaced. 4. Metabolic acidosis secondary to chronic kidney disease. Improved postdialysis. 5. Volume overload. Improved with ultrafiltration. 6. Chronic diastolic CHF. 7. Pericardial effusion. Antihistone antibodies positive in the past. 8. Anemia of chronic kidney disease. Iron replete. On Aranesp. 9. Hypertension with chronic kidney disease. Currently controlled. Plan: Hemodialysis tomorrow. Avoid minoxidil and hydralazine due to pericardial effusion. Avoid medicines that can raise potassium levels including Acei/ARB and spironolactone. Life-threatening risks including cardiac arrest associated with hyperkalemia and severely uncontrolled blood sugars have been discussed with the patient multiple times.
--- NOTE | 2022-02-20 09:18 | P.PN ---
Subjective Progress Note Date: 02/19/22 This is a telemedicine neurology follow-up performed today on 02/19/2022. Patient was seen for a follow-up. Patient still has not been extubated. Patient may get extubated later today. Patient has been off sedation since 11:30 AM (1 hour ago). Per nurse, patient is awake and follows commands. She does squeeze hands, and shakes head appropriately. No seizure-like activity noticed. Patient is off Keppra. Objective - Vital Signs Vital signs: Vital Signs Temp 98.2 F 02/19/22 12:00 Pulse 87 02/19/22 12:00 Resp 25 H 02/19/22 12:00 BP 143/82 02/19/22 12:00 Pulse Ox 99 02/19/22 12:00 FiO2 30 02/19/22 12:00 Intake & Output 02/18/22 02/19/22 02/19/22 18:59 06:59 18:59 Intake Total 687.806 424.505 448.576 Output Total 0 1300 2500 Balance 687.806 -875.495 -2051.424 Weight 52.9 kg Intake: IV 180 180 60 0.9 @ 20ml/hr 180 180 60 Intake, IV Titration 507.806 244.505 88.576 Amount Piperacillin-Tazobactam 3 100 100 .375 gm In Sodium Chloride 0.9% 100 ml @ 25 mls/hr IVPB Q12HR@0000, 1200 [facility] Rx#:[id number] Potassium Chloride 10 meq 300 In Water For Injection 1 100ml.bag @ 100 mls/hr IVPB Q1HR [facility] Rx#: [id number] propofoL 1,000 mg In 107.806 144.505 88.576 Empty Bag 1 bag @ 5 MCG/ KG/MIN 1.428 mls/hr IV . Q24H [facility] Rx#:[id number] Hemodialysis 300 Output: Gastric Drainage 300 Urine 0 0 0 Stool 1000 Hemodialysis 0 2500 Other: Voiding Method Indwelling Catheter Indwelling Catheter Indwelling Catheter # Voids 0 ABP, PAP, CO, CI - Last Documented Arterial Blood Pressure 164/70 - Exam Patient is intubated, off sedation. Patient does move extremities. Patient apparently is legally blind. Her pupils are dilated about 6 mm, nonreactive. Detail testing deferred. - Labs CBC & Chem 7: 02/20/22 04:15 02/20/22 04:15 Labs: Abnormal Lab Results - Last 24 Hours (Table) 02/18/22 02/18/22 02/18/22 Range/Units 15:05 17:37 19:55 RBC (3.80-5.40) m/uL Hgb (11.4-16.0) gm/dL Hct (34.0-46.0) % RDW (11.5-15.5) % Plt Count (150-450) k/uL Lymphocytes # (Manual) (1.0-4.8) k/uL Metamyelocytes # (Man) (0) k/uL ABG pO2 (83-108) mmHg ABG HCO3 (21-25) mmol/L ABG O2 Saturation (94-97) % Sodium (137-145) mmol/L Chloride (98-107) mmol/L Carbon Dioxide (22-30) mmol/L BUN (7-17) mg/dL Creatinine (0.52-1.04) mg/dL Glucose (74-99) mg/dL POC Glucose (mg/dL) 178 H 171 H 242 H (70-110) mg/dL Calcium (8.4-10.2) mg/dL AST (14-36) U/L ALT (4-34) U/L Alkaline Phosphatase (38-126) U/L Total Protein (6.3-8.2) g/dL Albumin (3.5-5.0) g/dL 02/18/22 02/19/22 02/19/22 Range/Units 23:28 04:12 04:15 RBC (3.80-5.40) m/uL Hgb (11.4-16.0) gm/dL Hct (34.0-46.0) % RDW (11.5-15.5) % Plt Count (150-450) k/uL Lymphocytes # (Manual) (1.0-4.8) k/uL Metamyelocytes # (Man) (0) k/uL ABG pO2 (83-108) mmHg ABG HCO3 (21-25) mmol/L ABG O2 Saturation (94-97) % Sodium (137-145) mmol/L Chloride (98-107) mmol/L Carbon Dioxide (22-30) mmol/L BUN (7-17) mg/dL Creatinine (0.52-1.04) mg/dL Glucose (74-99) mg/dL POC Glucose (mg/dL) 188 H 324 H 267 H (70-110) mg/dL Calcium (8.4-10.2) mg/dL AST (14-36) U/L ALT (4-34) U/L Alkaline Phosphatase (38-126) U/L Total Protein (6.3-8.2) g/dL Albumin (3.5-5.0) g/dL 02/19/22 02/19/22 02/19/22 Range/Units 04:15 04:15 05:31 RBC 2.49 L (3.80-5.40) m/uL Hgb 7.2 L (11.4-16.0) gm/dL Hct 21.1 L (34.0-46.0) % RDW 15.6 H (11.5-15.5) % Plt Count 99 L (150-450) k/uL Lymphocytes # (Manual) 0.34 L (1.0-4.8) k/uL Metamyelocytes # (Man) 0.19 H (0) k/uL ABG pO2 123 H (83-108) mmHg ABG HCO3 19 L (21-25) mmol/L ABG O2 Saturation 98.7 H (94-97) % Sodium 136 L (137-145) mmol/L Chloride 95 L (98-107) mmol/L Carbon Dioxide 16 L (22-30) mmol/L BUN 55 H (7-17) mg/dL Creatinine 6.05 H (0.52-1.04) mg/dL Glucose 298 H (74-99) mg/dL POC Glucose (mg/dL) (70-110) mg/dL Calcium 8.0 L (8.4-10.2) mg/dL AST 51 H (14-36) U/L ALT 52 H (4-34) U/L Alkaline Phosphatase 210 H (38-126) U/L Total Protein 5.4 L (6.3-8.2) g/dL Albumin 3.2 L (3.5-5.0) g/dL 02/19/22 02/19/22 Range/Units 08:03 11:37 RBC (3.80-5.40) m/uL Hgb (11.4-16.0) gm/dL Hct (34.0-46.0) % RDW (11.5-15.5) % Plt Count (150-450) k/uL Lymphocytes # (Manual) (1.0-4.8) k/uL Metamyelocytes # (Man) (0) k/uL ABG pO2 (83-108) mmHg ABG HCO3 (21-25) mmol/L ABG O2 Saturation (94-97) % Sodium (137-145) mmol/L Chloride (98-107) mmol/L Carbon Dioxide (22-30) mmol/L BUN (7-17) mg/dL Creatinine (0.52-1.04) mg/dL Glucose (74-99) mg/dL POC Glucose (mg/dL) 239 H 145 H (70-110) mg/dL Calcium (8.4-10.2) mg/dL AST (14-36) U/L ALT (4-34) U/L Alkaline Phosphatase (38-126) U/L Total Protein (6.3-8.2) g/dL Albumin (3.5-5.0) g/dL Microbiology - Last 24 Hours (Table) 02/16/22 23:45 Gram Stain - Final Sputum Sputum Culture - Final Beta Hemolytic Strep Group C 02/18/22 13:43 Stool Culture - Preliminary Stool Assessment and Plan Assessment: * Acute cardiopulmonary arrest, likely due to underlying cardiopulmonary/renal/metabolic condition. Downtime reported about 5 minutes. Patient on high-dose sedation at this time. Per nurse report, when sedation is decreased, patient does follow, does responds appropriately. * Seizure-like activity noted by the ICU staff. EKG negative. Patient off Keppra. No seizure-like activity noticed since then. * Abnormal CT head, with evidence of communicating hydrocephalus, likely chronic. No change from previous CT head. * Hyperkalemia, resolved * Acute pulmonary edema/volume overload, improved. * End-stage renal disease, on hemodialysis Monday. * Diabetes type 1, noncompliant with medication. Came with uncontrolled blood sugar. * Hypertension * Chronic anemia Plan: * EEG 02/17/2022 probably an abnormal sleep study due to some intermittent generalized suppression, which could be related to encephalopathy or medication effect. No epileptiform activity was seen. * Patient is off Keppra, as EEG was negative for epileptiform activity, and no clinical seizure-like activity noticed. * Possible extubation later today. * Treatment of other medical conditions as per IM/critical care. * Neurology will follow. Discussed with the nurse in detail.
--- NOTE | 2022-02-20 09:44 | P.PN ---
Subjective Progress Note Date: 02/20/22 31-year-old female patient with multiple medical present comorbidities. The patient is known to have type 1 diabetes mellitus, and the patient has end-stage renal disease and the patient is on hemodialysis. Blood sugar control with that over the years and the patient has had previous hospitalizations for pneumonia, missed dialysis, she is for hyperkalemia and fluid overload and pulmonary edema. She has also also been treated for hypertensive emergencies. The patient brought into the emergency department today as the patient was feeling lightheaded and dizzy and very weak. The patient was due for dialysis today. She is undergoing dialysis today. The patient was found to be bradycardic by EM S and the patient's heart rate was in the low 40s. She was brought into the emergency and she had a blood pressure 75/45 with a pulse ox of 90% on room air. Heart rate subsequently slowed down further went down to the 30s and following that the patient was feeling anxious and jittery denies having any chest pain. Subsequently, she goes into a cardiac arrest, asystole and the patient was resuscitated with a downtime estimated to be around 10 minutes. The patient went into asystole and CPR was initiated immediately. She did require intubation. I was also told that this was a difficult intubation as the patient has copious amount of frothy colored material in the posterior oropharynx which was suctioned out. During the course of her treatment, the patient was given hyperkalemia cocktail. The blood work came back with a sodium level of 128, potassium level was 5 and the patient had a chloride of 89 with a bicarb of 20 with a 53 and a creatinine of 7.52. The patient had a flexor count of 4.4 hemoglobin 8.7 and a platelet count of 175. The blood gases on 100% FiO2 showed a pH of 7.36 with a pCO2 of 38 and pO2 of 52. This was the blood gases was done immediately after intubation. The patient is currently in the intensive care unit on assist-control mode of mechanical ventilation at the rate of 20, tidal volume of 400, FiO2 of 100% with a PEEP of 8. Current pulse ox is 96%. The patient is sedated with propofol which is running at 50 mcg/kg per minute. The patient was also started on pressors for hypotension. Norepinephrine is running at 0.18 mcg/kg per minute. Post intubation chest x-ray showed cardiomegaly and pulmonary edema. ET tube is in a good location. The patient also has a orogastric tube which is in good location. She is arousable and she response to stimulation and she is moving all 4 extremities without any limitation.. On her blood work, the patient has a white cell count of 4.1 with a hemoglobin of 8.7 and a platelet count of 175. Her proBNP level was 49,200. Troponin was negative. Most recent blood sugar is at 562. 02/17/2022, seeing the patient for a follow-up. The patient remains intubated on a mechanical ventilator. The patient remains sedated on propofol which is running at 75 mcg/kg per minute. Yesterday late afternoon, the patient was felt to have some seizure like activity. This was not certain as the patient was hav ing some jerky body movements. The patient was given a total of 4 L of IV Ativan in follow-up. The patient was started on Keppra. CAT scan of the brain was done that showed hydrocephalus which is chronic and there is no acute abnormalities noted. No evidence of any bleeding. Note that the patient had a brief cardiac arrest due to asystole. In any rate, the patient is currently hypertensive and she is in a normal sinus rhythm. She was started on side effects after trying various antihypertensive medication and the patient is currently on Celebrex running at a dose of 8 mg per minute. Blood pressure is under better control for now with her most recent blood pressure being 138/57. The patient underwent hemodialysis yesterday with a total of 4 L of ultrafiltration. The patient remains on a mechanical ventilator. On today's evaluation of assist-control mode at the rate of 20 with a tidal volume of 400 and FiO2 of 60% with a PEEP of 12. Blood gases showed improvement in oxygenati on and the pO2 is 199. PH is at 7.46 with a pCO2 of 41. As such, there is improvement in oxygenation. There is improvement and acid base status. The patient's chest x-ray from today shows cardiomegaly. There is significant resolution of the pulmonary edema discussed earlier in the ET tube is in a good location. The patient also has a orogastric tube which is in great location. Potassium level is down to 3.5. Total of 146. Blood sugar today is 152. The patient was placed on an insulin drip yesterday and subsequently her blood sugars dropped and she was taken off insulin drip and currently she is on sliding scale insulin coverage every 4 hours. She remains nothing by mouth. Flores catheter is in place. Urine output is minimal. Calcium level is at 9.7. Phosphorus level is low at 1.0 and magnesium is at 1.9. In terms of her CBC, the white cell count from yesterday was 4.1 with a bilirubin of 8.7. 02/18/2022, the patient remains intubated on a mechanical ventilator. The pat ient is hemodynamically stable and the patient is on no pressors. The patient sedated with propofol which is running at 60 mg/kg/m. The patient has not had any seizure activity and the EEG that was done yesterday showed encephalopathy and diffuse slowing without any seizure-like activity. The patient was taken off Keppra. Meanwhile, the patient was having routine hemodialysis. The patient has already undergone dialysis yesterday and I think there are plans to do another session of hemodialysis today. She remains on a mechanical ventilator and she is quite synchronous patient is an assist-control mode at the rate of 20 with a tidal volume of 400 and FiO2 of 30% and a PEEP of 5. Has been considerable improvement in oxygenation and the chest x-ray also shows cardiomegaly. No acute abnormalities noted. ET tube remains in a good location. The patient's most recent blood work from this morning shows a pH of 7.44 with a pCO2 of 39 and pO2 112. Airway pressures are quite low at this point in time. As such, the patient was going to be taken off sedation and she'll be given a sedation holiday and her readiness to wean will be evaluated. Another issue is the ongoing episodes of temperature that the patient had throughout the day yesterday. The white second is not elevated at 4.0. The patient did have explosive liquidy diarrhea and the patient has a fecal management system in place. No antibiotic use at this point in time. Cultures of been sent. Stool for C. diff has been sent. Results are still pending for now. At the same time, the patient has been hemodynamically stable. No significant tachycardia. Sodium levels is 138 with a potassium level of 3.4, BUN is at 34 with a creatinine of 4.39. The white cell count is at 4 with a hemoglobin of 7.5. Cultures from the sputum was collected and results are still pending for now. In terms of her blood sugar control, the patient is on a sliding scale coverage. She's been adequately controlled for now. No long- acting insulin is being is less. No insulin drip is being is less for now. Her blood pressure is stable and she was started back on an antihypertensive medication pH was taken off the Catapres drip and the patient is well covered with a combination of as hypertensive medications including hydralazine 100 mg by mouth 3 times a day, Procardia XL 120 mg by mouth daily and prazosin 5 mg by mouth twice a day and Cozaar 1000 mg by mouth daily. Note that the clonidine and the beta rox was not restarted due to her underlying bradycardia at a time of admission. 02/19/2022, the patient is undergoing a supervisor cytology dialysis. The patient remains on propofol and currently propofol is running at 60 g subcu kilogram per minute. She is adequately sedated. She remains on a mechanical ventilator assist control mode at the rate of 20 with a tidal volume of 400 and FiO2 of 30% with PEEP of 5. Peak airway pressures 22. Blood pressure with a pH of 7.35 with a pCO2 of 35 and pO2 of 123. No pressors. No bradycardia. No fever today. Sputum was positive for strep group C and the patient was started on IV Zosyn yesterday. Blood cultures of been negative for now. She had a liquidy stool and a fecal management system has been applied. The stool for C. diff has been essentially negative for now. Her blood work today shows a potassium level of 4.7. Serum bicarbonate was at 16 probably related to her underlying diarrhea. He is a 55 with a creatinine of 6. White cell count is 4.8 with a hemoglobin of 7.2. Enteral feeding has been held due to her massive diarrhea for now. She is currently nothing by mouth. The plan is to proceed with hemodialysis and following that the patient may be potentially extubated. In terms of her blood pressure control, hydralazine will be discontinued due to concerns of pericardial effusion. The patient was also taken off the losartan due to concerns of episodic hyperkalemia. 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 02/20/2022, the patient is extubated. Her last dialysis session was yesterday and she had dialysis with ultrafiltration of 2 L and following that, the patient was taken off sedation and after some initial difficulties, she was able to do a brief smoked is breathing trial and following that I extubated the patient and currently she does still extubated on oxygen at 3 L nasal cannula. She is breathing comfortably. Postextubation, she became slightly anxious and her blood pressure went up. I had to put her back on Topamax for blood pressure control and currently she is off Her blood pressure is maintained adequately. She is slightly hypertensive. Her most recent BP is 159/75. She is on /Procardia XL 120 mg by mouth daily. She is also taken Minipress 5 mg by mouth twice a day. There has been some restriction in her blood pressure medications as the patient was taken off Coreg and clonidine because of bradycardia and off losartan because of difficulties with hyperkalemia. We are going to continue t he current antihypertensive medications for now. Her blood sugar is very brittle and she fluctuates between hyperglycemia and hypoglycemia. We opted to keep her only on sliding scale coverage. Another issue is ongoing diarrhea that she is encountered. The patient has a fecal management system in place and the stool for C. diff has been negative. She continues to have liquidy stool. ID evaluated the patient the patient was started on IV Zosyn as the patient was having episodes of fever earlier and currently she is afebrile. Cultures obtained during this current hospitalization showed beta hemolytic strep group C in the sputum. The most recent chest x-ray that was done this morning showed cardiomegaly. She has a water bottle sign consistent with pericardial effusion. The patient is known to have moderate-sized pericardial effusion. Her echocardiogram was done on 02/18/2022 and the patient has a preserved LV function, moderate pericardial effusion, no tamponade Objective - Vital Signs Vital signs: Vital Signs Temp 97.6 F 02/20/22 04:00 Pulse 92 02/20/22 07:00 Resp 18 02/20/22 07:00 BP 141/84 02/20/22 06:45 Pulse Ox 98 02/20/22 07:00 FiO2 30 02/19/22 12:00 Intake & Output 02/19/22 02/20/22 02/20/22 18:59 06:59 18:59 Intake Total 508.976 279.6 10 Output Total 7000 0 0 Balance -6491.024 279.6 10 Weight 53.9 kg Intake: IV 120 120 10 0.9 @ 20ml/hr 120 120 10 Intake, IV Titration 88.976 159.6 Amount Clevidipine Butyrate 25 0.400 59.6 mg In Empty Bag 1 bag @ 1 MG/HR 2 mls/hr IV .Q24H [facility] Rx#:[id number] Piperacillin-Tazobactam 3 100 .375 gm In Sodium Chloride 0.9% 100 ml @ 25 mls/hr IVPB Q12HR@0000, 1200 [facility] Rx#:[id number] propofoL 1,000 mg In 88.576 Empty Bag 1 bag @ 5 MCG/ KG/MIN 1.428 mls/hr IV . Q24H [facility] Rx#:[id number] Hemodialysis 300 Output: Urine 0 0 0 Stool 4500 Hemodialysis 2500 Other: Voiding Method Indwelling Catheter Indwelling Catheter # Voids 0 0 ABP, PAP, CO, CI - Last Documented Arterial Blood Pressure 134/58 - Exam GENERAL EXAM: Alert, pleasant, 30-year-old white female, extubated on 3 L and she is following commands and answering questions appropriately. HEAD: Normocephalic/atraumatic. EYES: Normal reaction of pupils, equal size. Conjunctiva pink, sclera white. NOSE: Clear with pink turbinates. THROAT: No erythema or exudates. NECK: No masses, no JVD, no thyroid enlargement, no adenopathy. CHEST: No chest wall deformity. Symmetrical expansion. LUNGS: Equal air entry with no crackles, wheeze, rhonchi or dullness. CVS: Regular rate and rhythm, normal S1 and S2, no gallops, no murmurs, no rubs ABDOMEN: Soft, nontender. No hepatosplenomegaly, normal bowel sounds, no guarding or rigidity. EXTREMITIES: No clubbing, no edema, no cyanosis, 2+ pulses and upper and lower extremities. left Arm AV fistula MUSCULOSKELETAL: Muscle strength and tone normal. SPINE: No scoliosis or deformity SKIN: No rashes CENTRAL NERVOUS SYSTEM: The patient is currently alert and oriented 3 without any focal neurological deficits. - Labs CBC & Chem 7: 02/20/22 04:15 02/20/22 04:15 Labs: Abnormal Lab Results - Last 24 Hours (Table) 02/19/22 02/19/22 02/19/22 Range/Units 04:15 11:37 16:47 RBC (3.80-5.40) m/uL Hgb (11.4-16.0) gm/dL Hct (34.0-46.0) % RDW (11.5-15.5) % Plt Count (150-450) k/uL Lymphocytes # (1.0-4.8) k/uL Chloride (98-107) mmol/L Carbon Dioxide (22-30) mmol/L BUN (7-17) mg/dL Creatinine (0.52-1.04) mg/dL Glucose (74-99) mg/dL POC Glucose (mg/dL) 145 H 226 H (70-110) mg/dL Iron 40 L (50-170) ug/dL TIBC 167 L (228-460) ug/dL Transferrin 119.0 L (204.0-354.0) mg/dL Ferritin 6501.0 H (10.0-291.0) ng/mL AST (14-36) U/L ALT (4-34) U/L Alkaline Phosphatase (38-126) U/L Total Protein (6.3-8.2) g/dL Albumin (3.5-5.0) g/dL 02/19/22 02/19/22 02/20/22 Range/Units 20:02 23:48 04:03 RBC (3.80-5.40) m/uL Hgb (11.4-16.0) gm/dL Hct (34.0-46.0) % RDW (11.5-15.5) % Plt Count (150-450) k/uL Lymphocytes # (1.0-4.8) k/uL Chloride (98-107) mmol/L Carbon Dioxide (22-30) mmol/L BUN (7-17) mg/dL Creatinine (0.52-1.04) mg/dL Glucose (74-99) mg/dL POC Glucose (mg/dL) 186 H 283 H 166 H (70-110) mg/dL Iron (50-170) ug/dL TIBC (228-460) ug/dL Transferrin (204.0-354.0) mg/dL Ferritin (10.0-291.0) ng/mL AST (14-36) U/L ALT (4-34) U/L Alkaline Phosphatase (38-126) U/L Total Protein (6.3-8.2) g/dL Albumin (3.5-5.0) g/dL 02/20/22 02/20/22 02/20/22 Range/Units 04:15 04:15 08:38 RBC 2.64 L (3.80-5.40) m/uL Hgb 7.2 L (11.4-16.0) gm/dL Hct 22.2 L (34.0-46.0) % RDW 15.7 H (11.5-15.5) % Plt Count 141 L (150-450) k/uL Lymphocytes # 0.5 L (1.0-4.8) k/uL Chloride 97 L (98-107) mmol/L Carbon Dioxide 21 L (22-30) mmol/L BUN 48 H (7-17) mg/dL Creatinine 4.89 H (0.52-1.04) mg/dL Glucose 155 H (74-99) mg/dL POC Glucose (mg/dL) 317 H (70-110) mg/dL Iron (50-170) ug/dL TIBC (228-460) ug/dL Transferrin (204.0-354.0) mg/dL Ferritin (10.0-291.0) ng/mL AST 74 H (14-36) U/L ALT 53 H (4-34) U/L Alkaline Phosphatase 256 H (38-126) U/L Total Protein 5.8 L (6.3-8.2) g/dL Albumin 3.4 L (3.5-5.0) g/dL Microbiology - Last 24 Hours (Table) 02/18/22 10:54 Blood Culture - Preliminary Blood No Growth after 24 hours 02/16/22 23:45 Gram Stain - Final Sputum Sputum Culture - Final Beta Hemolytic Strep Group C Assessment and Plan Plan: Acute cardiopulmonary arrest, most likely due to a combination of fluid overload and hyperkalemia that started off with bradycardia and subsequently the patient went into asystole. The downtime was limited. The patient had a high potassium level in the same time the patient was taking beta blockers clonidine and losartan. Better luck is and clonidine can cause bradycardia and losartan contributing to her hyperkalemia. No signs of any anoxic encephalopathy and the patient survived this cardiopulmonary arrest. Acute hypoxic respiratory failure, oxygenation improved. The patient extubated yesterday and the patient is currently on 3 L O2 nasal cannula Severe bradycardia followed by cardiac arrest, likely secondary to acute hyperkalemia, recovered and the patient is currently in normal sinus rhythm. Note that the patient was taking Coreg and clonidine which could've also contributed to her bradycardia, recovered Hypotension post cardiac arrest, recovered Moderate pericardial effusion, no signs of any cardiac tamponade Acute hypoxic respiratory failure, currently intubated on a mechanical ventilator, chest x-rays consistent with pulmonary edema, improved Questionable seizure activity. The patient had a CAT scan of the brain that showed hydrocephalus. The EEG was done and showed no evidence of any seizure activity and the patient was taken off the Keppra Acute pulmonary edema/volume overload, improved End-stage renal disease to receive hemodialysis on Monday Diabetes mellitus type 1 with brittle blood sugar control. Patient is currently on a scale insulin coverage. Hypertension and hypertensive heart disease. Ejection fraction of around 50- 55%. Moderate increase in the LV wall thickness related to chronic hypertension there was also mild pulmonary hypertension. Previous history of hyperkalemia requiring hemodialysis. The potassium level improved and the patient potassium normalized post dialysis , the patient was taken off lisinopril due to concerns of episodic hyperkalemia. Chronic anemia Previous hospitalization for hypertensive emergency due to missed dialysis Recent moderate circumferential pericardial effusion Recent hospitalization for bilateral pneumonia, discharged on 09/06/2021 History of CVA/TIA History of COVID-19 infection in May 2021 Episodes of fever, sputum is positive for strep group C the patient is currently on IV Zosyn. Afebrile for now. Acute diarrhea , has a fecal management system in place Plan Extubated to nasal cannula Provide incentive spirometer Advance diet Start the patient on Coreg with close monitoring of her blood pressure. We did she report that her blood pressure control. The patient will be started on Coreg 12.5 mg by mouth twice a day. She is also on Procardia XL 120 mg by mouth daily and Minipress.+ She is currently afebrile Monitor diarrhea and stool for C. diff is negative Continue IV Zosyn We're going to restart the patient on Wellbutrin SR 150 mg by mouth daily and Lexapro 20 mg by mouth daily. Restarting Lipitor 20 mg by mouth daily Restarting Requip 1 mg at bedtime Xanax 0.5 mg every 8 hours, when necessary Keppra was discontinued as there is no indication for any seizure activity Imodium for diarrhea May consider discontinuing the IV Zosyn as long as IDs agreeable to that increases morbidly as tolerated .
[2022-02-20] MEDS: LOPERAMIDE 2 MG CAP PO PRN (10:25)
[2022-02-20] MEDS: carvediloL 12.5 MG TAB PO SCH ×2 (10:25→16:59)
[2022-02-20] MEDS: HYDROmorphone 1 MG/ML 1 ML SYRINGE IVP PRN ×2 (10:26→21:12)
[2022-02-20] MEDS: NOREPINEPHRINE 4 MG in SODIUM CHLORIDE 0.9% 250 ML IV SCH ×3 (10:26→21:32)
[2022-02-20 11:59] LABS: Glucose,Whole Blood 211 mg/dL (70-110)
[2022-02-20] MEDS: PIPERACILLIN-TAZOBACTAM 3.375 GM in SODIUM CHLORIDE 0.9% 100 ML IVPB SCH (12:24)
[2022-02-20 16:10] LABS: Glucose,Whole Blood 167 mg/dL (70-110)
[2022-02-20] MEDS: SODIUM CHLORIDE 0.9% 1,000 ML IV SCH (16:25)
--- NOTE | 2022-02-20 16:42 | P.PN ---
Subjective Progress Note Date: 02/20/22 This is a telemedicine neurology follow-up performed today on 02/20/2022. Patient was seen for a follow-up. Patient was extubated today. Her mentation is completely intact. Patient is off sedation. Patient states that she is legally blind. She can only see shadows and some light in her eyes. This is related to her diabetes and cataract. Objective - Vital Signs Vital signs: Vital Signs Temp 97.5 F L 02/20/22 08:00 Pulse 89 02/20/22 11:00 Resp 20 02/20/22 11:00 BP 141/84 02/20/22 06:45 Pulse Ox 98 02/20/22 11:00 FiO2 4 02/20/22 08:00 Intake & Output 02/19/22 02/20/22 02/20/22 18:59 06:59 18:59 Intake Total 508.976 279.6 50 Output Total 2950 0 0 Balance -2441.024 279.6 50 Weight 53.9 kg Intake: IV 120 120 50 0.9 @ 20ml/hr 120 120 50 Intake, IV Titration 88.976 159.6 Amount Clevidipine Butyrate 25 0.400 59.6 mg In Empty Bag 1 bag @ 1 MG/HR 2 mls/hr IV .Q24H [facility] Rx#:[id number] Piperacillin-Tazobactam 3 100 .375 gm In Sodium Chloride 0.9% 100 ml @ 25 mls/hr IVPB Q12HR@0000, 1200 [facility] Rx#:[id number] propofoL 1,000 mg In 88.576 Empty Bag 1 bag @ 5 MCG/ KG/MIN 1.428 mls/hr IV . Q24H [facility] Rx#:[id number] Hemodialysis 300 Output: Urine 0 0 0 Stool 450 Hemodialysis 2500 Other: Voiding Method Indwelling Catheter Indwelling Catheter # Voids 0 0 ABP, PAP, CO, CI - Last Documented Arterial Blood Pressure 129/51 - Exam Patient is alert and awake, slightly groggy from recent extubation. She knows that she is in [facility] in [place]. She thinks it's February 2022. Speech and language functions are normal. No aphasia or dysarthria. Her pupils are large, 6 mm, nonreactive. Extraocular muscles are intact. Face is symmetric and tongue protrudes the midline. Shoulder shrug normal. Muscle strength is completely normal in arms and legs distally and proximally. Sensations are equal. - Labs CBC & Chem 7: 02/20/22 04:15 02/20/22 04:15 Labs: Abnormal Lab Results - Last 24 Hours (Table) 02/19/22 02/19/22 02/19/22 Range/Units 04:15 11:37 16:47 RBC (3.80-5.40) m/uL Hgb (11.4-16.0) gm/dL Hct (34.0-46.0) % RDW (11.5-15.5) % Plt Count (150-450) k/uL Lymphocytes # (1.0-4.8) k/uL Chloride (98-107) mmol/L Carbon Dioxide (22-30) mmol/L BUN (7-17) mg/dL Creatinine (0.52-1.04) mg/dL Glucose (74-99) mg/dL POC Glucose (mg/dL) 145 H 226 H (70-110) mg/dL Iron 40 L (50-170) ug/dL TIBC 167 L (228-460) ug/dL Transferrin 119.0 L (204.0-354.0) mg/dL Ferritin 6501.0 H (10.0-291.0) ng/mL AST (14-36) U/L ALT (4-34) U/L Alkaline Phosphatase (38-126) U/L Total Protein (6.3-8.2) g/dL Albumin (3.5-5.0) g/dL 02/19/22 02/19/22 02/20/22 Range/Units 20:02 23:48 04:03 RBC (3.80-5.40) m/uL Hgb (11.4-16.0) gm/dL Hct (34.0-46.0) % RDW (11.5-15.5) % Plt Count (150-450) k/uL Lymphocytes # (1.0-4.8) k/uL Chloride (98-107) mmol/L Carbon Dioxide (22-30) mmol/L BUN (7-17) mg/dL Creatinine (0.52-1.04) mg/dL Glucose (74-99) mg/dL POC Glucose (mg/dL) 186 H 283 H 166 H (70-110) mg/dL Iron (50-170) ug/dL TIBC (228-460) ug/dL Transferrin (204.0-354.0) mg/dL Ferritin (10.0-291.0) ng/mL AST (14-36) U/L ALT (4-34) U/L Alkaline Phosphatase (38-126) U/L Total Protein (6.3-8.2) g/dL Albumin (3.5-5.0) g/dL 02/20/22 02/20/22 02/20/22 Range/Units 04:15 04:15 08:38 RBC 2.64 L (3.80-5.40) m/uL Hgb 7.2 L (11.4-16.0) gm/dL Hct 22.2 L (34.0-46.0) % RDW 15.7 H (11.5-15.5) % Plt Count 141 L (150-450) k/uL Lymphocytes # 0.5 L (1.0-4.8) k/uL Chloride 97 L (98-107) mmol/L Carbon Dioxide 21 L (22-30) mmol/L BUN 48 H (7-17) mg/dL Creatinine 4.89 H (0.52-1.04) mg/dL Glucose 155 H (74-99) mg/dL POC Glucose (mg/dL) 317 H (70-110) mg/dL Iron (50-170) ug/dL TIBC (228-460) ug/dL Transferrin (204.0-354.0) mg/dL Ferritin (10.0-291.0) ng/mL AST 74 H (14-36) U/L ALT 53 H (4-34) U/L Alkaline Phosphatase 256 H (38-126) U/L Total Protein 5.8 L (6.3-8.2) g/dL Albumin 3.4 L (3.5-5.0) g/dL Microbiology - Last 24 Hours (Table) 02/18/22 10:54 Blood Culture - Preliminary Blood No Growth after 24 hours 02/16/22 23:45 Gram Stain - Final Sputum Sputum Culture - Final Beta Hemolytic Strep Group C Assessment and Plan Assessment: * Acute cardiopulmonary arrest, likely due to underlying cardiopulmona ry/renal/metabolic condition. Downtime reported about 5 minutes. * Status post extubation. Patient's mentation and strength are normal. * Seizure-like activity noted by the ICU staff. EEG negative. Patient off Keppra. The event was most likely not seizure, likely metabolic in nature. * Abnormal CT head, with evidence of communicating hydrocephalus, likely chronic. No change from previous CT head. * Hyperkalemia, resolved * Acute pulmonary edema/volume overload, improved. * End-stage renal disease, on hemodialysis Monday. * Diabetes type 1, noncompliant with medication. Came with uncontrolled blood sugar. * Hypertension * Chronic anemia Plan: * Patient is status post extubation. Her mentation and neurological examination is nonfocal. * EEG 02/17/2022 probably an abnormal sleep study due to some intermittent generalized suppression, which could be related to encephalopathy or medication effect. No epileptiform activity was seen. Patient is off Keppra, as EEG was negative for epileptiform activity, and no clinical seizure-like activity noticed. Do not believe she had any seizure. * Treatment of other medical conditions as per IM/critical care. * Patient has mild hydrocephalus noted on CT head, which is chronic and present at least since May 2021 (the first computed tomography scan in our system for comparison) and has been stable. Recommend patient follow up with neurologist as an outpatient, particularly if she has memory and gait issues. This was relayed to her mother by the nurse Elisa. * Neurology will sign off. Please reconsult neurology if any concerns. Dr. Adolfo Rajan will be resuming neurology service in the morning for any concerns.
--- NOTE | 2022-02-20 17:10 | P.PN ---
Subjective Progress Note Date: 02/19/22 Principal diagnosis: Fever/aspiration pneumonia Patient is a 31-year-old female with multiple comorbidities including end-stage renal disease on hemodialysis, Presented to hospital with lightheadedness disease patient did have a bradycardia arrhythmia and subsequently did have a cardiac arrest requiring intubation and did have a fever with left-sided infiltrate concerning for possible aspiration pneumonia. on today's evaluation that Is 02/19/2022, the patient remains to be afebrile, the patient remains to be intubated on the vent and FiO2 is down to 30%, no si gnificant purulent secretions through the ET or any worsening diarrhea reported by the nursing staff Objective - Vital Signs Vital signs: Vital Signs Temp 98.2 F 02/19/22 12:00 Pulse 87 02/19/22 12:00 Resp 25 H 02/19/22 12:00 BP 143/82 02/19/22 12:00 Pulse Ox 99 02/19/22 12:00 FiO2 30 02/19/22 12:00 Intake & Output 02/18/22 02/19/22 02/19/22 18:59 06:59 18:59 Intake Total 687.806 424.505 448.576 Output Total 0 1300 2500 Balance 687.806 -875.495 -2051.424 Weight 52.9 kg Intake: IV 180 180 60 0.9 @ 20ml/hr 180 180 60 Intake, IV Titration 507.806 244.505 88.576 Amount Piperacillin-Tazobactam 3 100 100 .375 gm In Sodium Chloride 0.9% 100 ml @ 25 mls/hr IVPB Q12HR@0000, 1200 [facility] Rx#:[id number] Potassium Chloride 10 meq 300 In Water For Injection 1 100ml.bag @ 100 mls/hr IVPB Q1HR [facility] Rx#: [id number] propofoL 1,000 mg In 107.806 144.505 88.576 Empty Bag 1 bag @ 5 MCG/ KG/MIN 1.428 mls/hr IV . Q24H [facility] Rx#:[id number] Hemodialysis 300 Output: Gastric Drainage 300 Urine 0 0 0 Stool 1000 Hemodialysis 0 2500 Other: Voiding Method Indwelling Catheter Indwelling Catheter Indwelling Catheter # Voids 0 ABP, PAP, CO, CI - Last Documented Arterial Blood Pressure 164/70 - Exam GENERAL DESCRIPTION: Middle-aged female intubated on the vent RESPIRATORY SYSTEM: Unlabored breathing , decreased breath sounds at bases HEART: S1 S2 regular rate and rhythm , ABDOMEN: Soft , no tenderness EXTREMITIES: No edema feet - Labs CBC & Chem 7: 02/20/22 04:15 02/20/22 04:15 Labs: Abnormal Lab Results - Last 24 Hours (Table) 02/18/22 02/18/22 02/18/22 Range/Units 15:05 17:37 19:55 RBC (3.80-5.40) m/uL Hgb (11.4-16.0) gm/dL Hct (34.0-46.0) % RDW (11.5-15.5) % Plt Count (150-450) k/uL Lymphocytes # (Manual) (1.0-4.8) k/uL Metamyelocytes # (Man) (0) k/uL ABG pO2 (83-108) mmHg ABG HCO3 (21-25) mmol/L ABG O2 Saturation (94-97) % Sodium (137-145) mmol/L Chloride (98-107) mmol/L Carbon Dioxide (22-30) mmol/L BUN (7-17) mg/dL Creatinine (0.52-1.04) mg/dL Glucose (74-99) mg/dL POC Glucose (mg/dL) 178 H 171 H 242 H (70-110) mg/dL Calcium (8.4-10.2) mg/dL AST (14-36) U/L ALT (4-34) U/L Alkaline Phosphatase (38-126) U/L Total Protein (6.3-8.2) g/dL Albumin (3.5-5.0) g/dL 02/18/22 02/19/22 02/19/22 Range/Units 23:28 04:12 04:15 RBC (3.80-5.40) m/uL Hgb (11.4-16.0) gm/dL Hct (34.0-46.0) % RDW (11.5-15.5) % Plt Count (150-450) k/uL Lymphocytes # (Manual) (1.0-4.8) k/uL Metamyelocytes # (Man) (0) k/uL ABG pO2 (83-108) mmHg ABG HCO3 (21-25) mmol/L ABG O2 Saturation (94-97) % Sodium (137-145) mmol/L Chloride (98-107) mmol/L Carbon Dioxide (22-30) mmol/L BUN (7-17) mg/dL Creatinine (0.52-1.04) mg/dL Glucose (74-99) mg/dL POC Glucose (mg/dL) 188 H 324 H 267 H (70-110) mg/dL Calcium (8.4-10.2) mg/dL AST (14-36) U/L ALT (4-34) U/L Alkaline Phosphatase (38-126) U/L Total Protein (6.3-8.2) g/dL Albumin (3.5-5.0) g/dL 02/19/22 02/19/22 02/19/22 Range/Units 04:15 04:15 05:31 RBC 2.49 L (3.80-5.40) m/uL Hgb 7.2 L (11.4-16.0) gm/dL Hct 21.1 L (34.0-46.0) % RDW 15.6 H (11.5-15.5) % Plt Count 99 L (150-450) k/uL Lymphocytes # (Manual) 0.34 L (1.0-4.8) k/uL Metamyelocytes # (Man) 0.19 H (0) k/uL ABG pO2 123 H (83-108) mmHg ABG HCO3 19 L (21-25) mmol/L ABG O2 Saturation 98.7 H (94-97) % Sodium 136 L (137-145) mmol/L Chloride 95 L (98-107) mmol/L Carbon Dioxide 16 L (22-30) mmol/L BUN 55 H (7-17) mg/dL Creatinine 6.05 H (0.52-1.04) mg/dL Glucose 298 H (74-99) mg/dL POC Glucose (mg/dL) (70-110) mg/dL Calcium 8.0 L (8.4-10.2) mg/dL AST 51 H (14-36) U/L ALT 52 H (4-34) U/L Alkaline Phosphatase 210 H (38-126) U/L Total Protein 5.4 L (6.3-8.2) g/dL Albumin 3.2 L (3.5-5.0) g/dL 02/19/22 02/19/22 Range/Units 08:03 11:37 RBC (3.80-5.40) m/uL Hgb (11.4-16.0) gm/dL Hct (34.0-46.0) % RDW (11.5-15.5) % Plt Count (150-450) k/uL Lymphocytes # (Manual) (1.0-4.8) k/uL Metamyelocytes # (Man) (0) k/uL ABG pO2 (83-108) mmHg ABG HCO3 (21-25) mmol/L ABG O2 Saturation (94-97) % Sodium (137-145) mmol/L Chloride (98-107) mmol/L Carbon Dioxide (22-30) mmol/L BUN (7-17) mg/dL Creatinine (0.52-1.04) mg/dL Glucose (74-99) mg/dL POC Glucose (mg/dL) 239 H 145 H (70-110) mg/dL Calcium (8.4-10.2) mg/dL AST (14-36) U/L ALT (4-34) U/L Alkaline Phosphatase (38-126) U/L Total Protein (6.3-8.2) g/dL Albumin (3.5-5.0) g/dL Microbiology - Last 24 Hours (Table) 02/16/22 23:45 Gram Stain - Final Sputum Sputum Culture - Final Beta Hemolytic Strep Group C 02/18/22 13:43 Stool Culture - Preliminary Stool Assessment and Plan (1) Fever Current Visit: No Status: Acute Code(s): R50.9 - FEVER, UNSPECIFIED SNOMED Code(s): 368145614 Plan: 1patient with a fever of 102 F in this patient presenting to the hospital with weakness patient was noticed to be bradycardic and did have a cardiac arrest with significant amount of oropharyngeal secretion and left-sided infiltrate concerning for possible aspiration pneumonitis.Patient did have a negative COVID and influenza PCR 2the patient blood and sputum cultures are currently pending 3patient to continue with Zosyn 3.375 g every 12 hours while monitoring her clinical course closely Time with Patient: Less than 30
--- NOTE | 2022-02-20 17:12 | P.PN ---
Subjective Progress Note Date: 02/20/22 Principal diagnosis: Fever/aspiration pneumonia Patient is a 31-year-old female with multiple comorbidities including end-stage renal disease on hemodialysis, Presented to hospital with lightheadedness disease patient did have a bradycardia arrhythmia and subsequently did have a cardiac arrest requiring intubation and did have a fever with left-sided infiltrate concerning for possible aspiration pneumonia. The patient has been extubated afternoon of 02/19/2022 on today's evaluation that Is 02/20/2022, the patient continues to be afebrile, the patient is breathing comfortably on nasal cannula oxygen, the patient had denies having any chest pain she did have a cough did not bring up any sputum no vomiting no abdominal pain she still have the fecal management system overall output has decreased per the nursing staff Objective - Vital Signs Vital signs: Vital Signs Temp 98.2 F 02/20/22 12:00 Pulse 79 02/20/22 15:00 Resp 15 02/20/22 15:00 BP 110/62 02/20/22 14:45 Pulse Ox 98 02/20/22 15:00 FiO2 4 02/20/22 08:00 Intake & Output 02/19/22 02/20/22 02/20/22 18:59 06:59 18:59 Intake Total 508.976 279.6 190 Output Total 2950 0 0 Balance -2441.024 279.6 190 Weight 53.9 kg Intake: IV 120 120 190 0.9 @ 20ml/hr 120 120 90 Piperacillin-Tazobactam 3 100 .375 gm In Sodium Chloride 0.9% 100 ml @ 25 mls/hr IVPB Q12HR@0000, 1200 [facility] Rx#:[id number] Intake, IV Titration 88.976 159.6 Amount Clevidipine Butyrate 25 0.400 59.6 mg In Empty Bag 1 bag @ 1 MG/HR 2 mls/hr IV .Q24H [facility] Rx#:[id number] Piperacillin-Tazobactam 3 100 .375 gm In Sodium Chloride 0.9% 100 ml @ 25 mls/hr IVPB Q12HR@0000, 1200 [facility] Rx#:[id number] propofoL 1,000 mg In 88.576 Empty Bag 1 bag @ 5 MCG/ KG/MIN 1.428 mls/hr IV . Q24H [facility] Rx#:[id number] Hemodialysis 300 Output: Urine 0 0 0 Stool 450 Hemodialysis 2500 Other: Voiding Method Indwelling Catheter Indwelling Catheter Indwelling Catheter # Voids 0 0 0 ABP, PAP, CO, CI - Last Documented Arterial Blood Pressure 87/39 - Exam GENERAL DESCRIPTION: Middle-aged female lying in bed in no distress RESPIRATORY SYSTEM: Unlabored breathing , decreased breath sounds at bases HEART: S1 S2 regular rate and rhythm , ABDOMEN: Soft , no tenderness EXTREMITIES: No edema feet - Labs CBC & Chem 7: 02/20/22 04:15 02/20/22 04:15 Labs: Abnormal Lab Results - Last 24 Hours (Table) 02/19/22 02/19/22 02/19/22 Range/Units 04:15 16:47 20:02 RBC (3.80-5.40) m/uL Hgb (11.4-16.0) gm/dL Hct (34.0-46.0) % RDW (11.5-15.5) % Plt Count (150-450) k/uL Lymphocytes # (1.0-4.8) k/uL Chloride (98-107) mmol/L Carbon Dioxide (22-30) mmol/L BUN (7-17) mg/dL Creatinine (0.52-1.04) mg/dL Glucose (74-99) mg/dL POC Glucose (mg/dL) 226 H 186 H (70-110) mg/dL Iron 40 L (50-170) ug/dL TIBC 167 L (228-460) ug/dL Transferrin 119.0 L (204.0-354.0) mg/dL Ferritin 6501.0 H (10.0-291.0) ng/mL AST (14-36) U/L ALT (4-34) U/L Alkaline Phosphatase (38-126) U/L Total Protein (6.3-8.2) g/dL Albumin (3.5-5.0) g/dL 02/19/22 02/20/22 02/20/22 Range/Units 23:48 04:03 04:15 RBC 2.64 L (3.80-5.40) m/uL Hgb 7.2 L (11.4-16.0) gm/dL Hct 22.2 L (34.0-46.0) % RDW 15.7 H (11.5-15.5) % Plt Count 141 L (150-450) k/uL Lymphocytes # 0.5 L (1.0-4.8) k/uL Chloride (98-107) mmol/L Carbon Dioxide (22-30) mmol/L BUN (7-17) mg/dL Creatinine (0.52-1.04) mg/dL Glucose (74-99) mg/dL POC Glucose (mg/dL) 283 H 166 H (70-110) mg/dL Iron (50-170) ug/dL TIBC (228-460) ug/dL Transferrin (204.0-354.0) mg/dL Ferritin (10.0-291.0) ng/mL AST (14-36) U/L ALT (4-34) U/L Alkaline Phosphatase (38-126) U/L Total Protein (6.3-8.2) g/dL Albumin (3.5-5.0) g/dL 02/20/22 02/20/22 02/20/22 Range/Units 04:15 08:38 11:58 RBC (3.80-5.40) m/uL Hgb (11.4-16.0) gm/dL Hct (34.0-46.0) % RDW (11.5-15.5) % Plt Count (150-450) k/uL Lymphocytes # (1.0-4.8) k/uL Chloride 97 L (98-107) mmol/L Carbon Dioxide 21 L (22-30) mmol/L BUN 48 H (7-17) mg/dL Creatinine 4.89 H (0.52-1.04) mg/dL Glucose 155 H (74-99) mg/dL POC Glucose (mg/dL) 317 H 211 H (70-110) mg/dL Iron (50-170) ug/dL TIBC (228-460) ug/dL Transferrin (204.0-354.0) mg/dL Ferritin (10.0-291.0) ng/mL AST 74 H (14-36) U/L ALT 53 H (4-34) U/L Alkaline Phosphatase 256 H (38-126) U/L Total Protein 5.8 L (6.3-8.2) g/dL Albumin 3.4 L (3.5-5.0) g/dL Microbiology - Last 24 Hours (Table) 02/18/22 10:54 Blood Culture - Preliminary Blood No Growth after 48 hours Assessment and Plan (1) Fever Current Visit: No Status: Acute Code(s): R50.9 - FEVER, UNSPECIFIED SNOMED Code(s): 261330535 Plan: 1patient with a fever of 102 F in this patient presenting to the hospital with weakness patient was noticed to be bradycardic and did have a cardiac arrest with significant amount of oropharyngeal secretion and left-sided infiltrate concerning for possible aspiration pneumonitis.Patient did have a negative COVID and influenza PCR 2the patient blood has been negative sputum has been finalized with beta- hemolytic group G strep 3we will discontinue Zosyn and start the patient on Unasyn and monitor clinical course closely Time with Patient: Less than 30
[2022-02-20] MEDS ORDERED: ALBUMIN HUMAN 5% 500 ML in EMPTY BAG 1 BAG IVPB ONE (18:30)
[2022-02-20 20:01] LABS: Glucose,Whole Blood 242 mg/dL (70-110)
[2022-02-20] MEDS ORDERED: AMPICILLIN-SULBACTAM 3 GM in SODIUM CHLORIDE 0.9% 100 ML IVPB SCH (21:00)
[2022-02-21 00:08] LABS: Glucose,Whole Blood 180 mg/dL (70-110)
[2022-02-21] MEDS: INSULIN ASPART (NovoLOG) 100 UNIT/ML VIAL SQ SCH ×6 (00:16→21:30)
[2022-02-21] MEDS: HYDROmorphone 1 MG/ML 1 ML SYRINGE IVP PRN ×5 (02:22→20:10)
[2022-02-21 03:50] LABS: Glucose,Whole Blood 180 mg/dL (70-110)
[2022-02-21] MEDS: NOREPINEPHRINE 4 MG in SODIUM CHLORIDE 0.9% 250 ML IV SCH (04:01)
[2022-02-21 04:43] LABS: Basophils % (A) 1 %; Eosinophils # (A) 0.2 k/uL (0-0.7); Eosinophils % (A) 3 %; HCT 22.6 % (34.0-46.0); HGB 7.1 gm/dL (11.4-16.0); Hypochromasia Slight; Lymphocytes # (A) 0.3 k/uL (1.0-4.8); Lymphocytes % (A) 4 %; MCH 26.7 pg (25.0-35.0); MCHC 31.2 g/dL (31.0-37.0); MCV 85.6 fL (80.0-100.0); Mean Platelet Volume 10.2; Monocytes # (A) 0.5 k/uL (0-1.0); Monocytes % (A) 6 %; Neutrophils # (A) 6.2 k/uL (1.3-7.7); Neutrophils % (A) 85 %; Platelet Count 123 k/uL (150-450); RBC 2.64 m/uL (3.80-5.40); RDW 15.8 % (11.5-15.5); WBC 7.4 k/uL (3.8-10.6)
[2022-02-21 04:46] LABS: Albumin 3.7 g/dL (3.5-5.0); Calcium 9.3 mg/dL (8.4-10.2); Potassium 3.8 mmol/L (3.5-5.1); Total Bilirubin 0.8 mg/dL (0.2-1.3); Total Protein 5.9 g/dL (6.3-8.2)
[2022-02-21] MEDS ORDERED: POTASSIUM BICARBONATE/CIT AC 20 MEQ TABLET.EFF PO ONE (05:32)
[2022-02-21] MEDS: carvediloL 12.5 MG TAB PO SCH ×2 (06:47→16:55)
--- NOTE | 2022-02-21 08:54 | P.PN ---
Subjective Patient is seen in follow-up for end-stage renal disease. Tolerating dialysis well. Blood pressure stable. Required vasopressor support yesterday but currently off. Resting in bed. No active complaints. Vital signs are stable. General: Resting in bed. HEENT: Head exam is unremarkable. On nasal cannula. LUNGS: Breath sounds decreased. HEART: Rate and Rhythm are regular. ABDOMEN: Soft, no distention. EXTREMITITES: No edema. Objective - Vital Signs Vital signs: Vital Signs Temp 97.2 F L 02/21/22 04:00 Pulse 73 02/21/22 07:00 Resp 15 02/21/22 07:00 BP 126/58 02/21/22 04:15 Pulse Ox 98 02/21/22 07:00 FiO2 4 02/20/22 08:00 Intake & Output 02/20/22 02/21/22 02/21/22 18:59 06:59 18:59 Intake Total 340.170 670.000 20 Output Total 100 0 0 Balance 240.170 670.000 20 Weight 51.5 kg Intake: IV 240 240 20 0.9 @ 20ml/hr 140 240 20 Piperacillin-Tazobactam 3 100 .375 gm In Sodium Chloride 0.9% 100 ml @ 25 mls/hr IVPB Q12HR@0000, 1200 [facility] Rx#:[id number] Intake, IV Titration 100.170 430.000 Amount Norepinephrine 4 mg In 100.170 430.000 Sodium Chloride 0.9% 250 ml @ 0.05 MCG/KG/MIN 10. 077 mls/hr IV .Q24H [facility] Rx#:[id number] Output: Urine 0 0 0 Stool 100 Other: # Voids 0 0 ABP, PAP, CO, CI - Last Documented Arterial Blood Pressure 122/45 - Labs CBC & Chem 7: 02/21/22 03:52 02/21/22 03:52 Labs: Abnormal Lab Results - Last 24 Hours (Table) 02/20/22 02/20/22 02/20/22 Range/Units 11:58 16:08 20:00 RBC (3.80-5.40) m/uL Hgb (11.4-16.0) gm/dL Hct (34.0-46.0) % RDW (11.5-15.5) % Plt Count (150-450) k/uL Lymphocytes # (1.0-4.8) k/uL Carbon Dioxide (22-30) mmol/L BUN (7-17) mg/dL Creatinine (0.52-1.04) mg/dL Glucose (74-99) mg/dL POC Glucose (mg/dL) 211 H 167 H 242 H (70-110) mg/dL AST (14-36) U/L ALT (4-34) U/L Alkaline Phosphatase (38-126) U/L Total Protein (6.3-8.2) g/dL 02/21/22 02/21/22 02/21/22 Range/Units 00:06 03:48 03:52 RBC 2.64 L (3.80-5.40) m/uL Hgb 7.1 L (11.4-16.0) gm/dL Hct 22.6 L (34.0-46.0) % RDW 15.8 H (11.5-15.5) % Plt Count 123 L (150-450) k/uL Lymphocytes # 0.3 L (1.0-4.8) k/uL Carbon Dioxide (22-30) mmol/L BUN (7-17) mg/dL Creatinine (0.52-1.04) mg/dL Glucose (74-99) mg/dL POC Glucose (mg/dL) 180 H 180 H (70-110) mg/dL AST (14-36) U/L ALT (4-34) U/L Alkaline Phosphatase (38-126) U/L Total Protein (6.3-8.2) g/dL 02/21/22 Range/Units 03:52 RBC (3.80-5.40) m/uL Hgb (11.4-16.0) gm/dL Hct (34.0-46.0) % RDW (11.5-15.5) % Plt Count (150-450) k/uL Lymphocytes # (1.0-4.8) k/uL Carbon Dioxide 18 L (22-30) mmol/L BUN 64 H (7-17) mg/dL Creatinine 6.38 H (0.52-1.04) mg/dL Glucose 179 H (74-99) mg/dL POC Glucose (mg/dL) (70-110) mg/dL AST 78 H (14-36) U/L ALT 47 H (4-34) U/L Alkaline Phosphatase 829 H (38-126) U/L Total Protein 5.9 L (6.3-8.2) g/dL Microbiology - Last 24 Hours (Table) 02/18/22 13:43 Stool Culture - Preliminary Stool 02/18/22 10:54 Blood Culture - Preliminary Blood No Growth after 48 hours Assessment and Plan Plan: Assessment: 1. End-stage renal disease maintained on hemodialysis on Monday schedule. 2. Status post cardiac arrest. Patient was hyperkalemic and bradycardic. 3. Hyperkalemia secondary to chronic kidney disease and hyperglycemia. Resolved. Subsequently required potassium replacement. 4. Metabolic acidosis secondary to chronic kidney disease. Expect improvement postdialysis. 5. Volume overload. Improved with ultrafiltration. 6. Chronic diastolic CHF. 7. Pericardial effusion. Antihistone antibodies positive in the past. 8. Anemia of chronic kidney disease. Iron replete. On Aranesp. 9. Hypertension with chronic kidney disease. Currently controlled. Plan: Currently seen while undergoing hemodialysis. Avoid minoxidil and hydralazine due to pericardial effusion. Avoid medicines that can raise potassium levels including Acei/ARB and spironolactone. Life-threatening risks including cardiac arrest associated with hyperkalemia and severely uncontrolled blood sugars have been discussed with the patient multiple times.
--- NOTE | 2022-02-21 08:57 | PN ---
PROGRESS NOTE CHIEF COMPLAINT: Status post cardiorespiratory arrest with anoxic brain injury. HISTORY OF PRESENT ILLNESS: This lady is waking up a little bit more each day. She is still lethargic and confused. Mother is at the bedside. PHYSICAL EXAMINATION: VITAL SIGNS: Normal. LUNGS: Breath sounds are heard bilaterally. CARDIAC EXAM: Normal. ABDOMEN: Soft, nontender. EXTREMITIES: Normal. IMPRESSION: 1. Status post cardiorespiratory arrest. 2. Anoxic brain injury. 3. Stage 5 chronic kidney disease. 4. Uncontrolled and poorly managed type 1 insulin-dependent diabetes mellitus. 5. Depression. PLAN: Continue with ICU management. Her natural mother who lives in [place] is becoming increasingly concerned about her daughter's home care and safety. Apparently, she and her used to take care of Patsy and her 3 children in [place]. They had good control of the situation. Then he was killed in a car accident. The patient and the 3 children have moved up here with her natural father, but he is not giving her good care. He works. She does not take her medications reliably or faithfully and gets ended difficulty. She also misses dialysis appointments. The mother plans on going to the court for guardianship and this will be supported. MMODL / IJN: [id number] /
[2022-02-21] MEDS: AMPICILLIN-SULBACTAM 3 GM in SODIUM CHLORIDE 0.9% 100 ML IVPB SCH (09:35)
[2022-02-21] MEDS: ATORVASTATIN 40 MG TAB PO SCH (09:35)
[2022-02-21] MEDS: ASPIRIN 81 MG PO SCH (09:36)
[2022-02-21] MEDS: PANTOPRAZOLE 40 MG/10 ML VIAL IV SCH (09:36)
[2022-02-21] MEDS: ESCITALOPRAM 20 MG TAB PO SCH (09:36)
[2022-02-21] MEDS: PRAZOSIN 1 MG CAP PO SCH ×2 (09:36→20:14)
[2022-02-21] MEDS: CHLORHEXIDINE GLUCONATE 15 ML CUP MUCOUS MEM SCH ×2 (09:36→20:14)
[2022-02-21] MEDS: buPROPion SR 150 MG TABLET.ER PO SCH ×2 (09:36→20:14)
[2022-02-21 09:42] LABS: Glucose,Whole Blood 208 mg/dL (70-110)
--- NOTE | 2022-02-21 10:23 | P.PN ---
Subjective Progress Note Date: 02/21/22 Principal diagnosis: Cardiac arrest 31-year-old female patient with multiple medical present comorbidities. The patient is known to have type 1 diabetes mellitus, and the patient has end-stage renal disease and the patient is on hemodialysis. Blood sugar control with that over the years and the patient has had previous hospitalizations for pneumonia, missed dialysis, she is for hyperkalemia and fluid overload and pulmonary edema. She has also also been treated for hypertensive emergencies. The patient brought into the emergency department today as the patient was feeling lightheaded and dizzy and very weak. The patient was due for dialysis today. She is undergoing dialysis today. The patient was found to be bradycardic by EMS and the patient's heart rate was in the low 40s. She was brought into the emergency and she had a blood pressure 75/45 with a pulse ox of 90% on room air. Heart rate subsequently slowed down further went down to the 30s and following that the patient was feeling anxious and jittery denies having any chest pain. Subsequently, she goes into a cardiac arrest, asystole and the patient was resuscitated with a downtime estimated to be around 10 minutes. The patient went into asystole and CPR was initiated immediately. She did require intubation. I was also told that this was a difficult intubation as the patient has copious amount of frothy colored material in the posterior oropharynx which was suctioned out. During the course of her treatment, the patient was given hyperkalemia cocktail. The blood work came back with a sodium level of 128, potassium level was 5 and the patient had a chloride of 89 with a bicarb of 20 with a 53 and a creatinine of 7.52. The patient had a flexor count of 4.4 hemoglobin 8.7 and a platelet count of 175. The blood gases on 100% FiO2 showed a pH of 7.36 with a pCO2 of 38 and pO2 of 52. This was the blood gases was done immediately after intubation. The patient is currently in the intensive care unit on assist-control mode of mechanical ventilation at the rate of 20, tidal volume of 400, FiO2 of 100% with a PEEP of 8. Current pulse ox is 96%. The patient is sedated with propofol which is running at 50 mcg/kg per minute. The patient was also started on pressors for hypotension. Norepinephrine is running at 0.18 mcg/kg per minute. Post intubation chest x-ray showed cardiomegaly and pulmonary edema. ET tube is in a good location. The patient also has a orogastric tube which is in good location. She is arousable and she response to stimulation and she is moving all 4 extremities without any limitation.. On her blood work, the patient has a white cell count of 4.1 with a hemoglobin of 8.7 and a platelet count of 175. Her proBNP level was 49,200. Troponin was neg ative. Most recent blood sugar is at 562. 02/20/2022, the patient is extubated. Her last dialysis session was yesterday and she had dialysis with ultrafiltration of 2 L and following that, the patient was taken off sedation and after some initial difficulties, she was able to do a brief smoked is breathing trial and following that I extubated the patient and currently she does still extubated on oxygen at 3 L nasal cannula. She is breathing comfortably. Postextubation, she became slightly anxious and her blood pressure went up. I had to put her back on Topamax for blood pressure control and currently she is off Her blood pressure is maintained adequately. She is slightly hypertensive. Her most recent BP is 159/75. She is on /Procardia XL 120 mg by mouth daily. She is also taken Minipress 5 mg by mouth twice a day. There has been some restriction in her blood pressure medications as the patient was taken off Coreg and clonidine because of bradycardia and off losartan because of difficulties with hyperkalemia. We are going to continue the current antihypertensive medications for now. Her blood sugar is very brittle and she fluctuates between hyperglycemia and hypoglycemia. We opted to keep her only on sliding scale coverage. Another issue is ongoing diarrhea that she is encountered. The patient has a fecal management system in place and the stool for C. diff has been negative. She continues to have liquidy stool. ID evaluated the patient the patient was started on IV Zosyn as the patient was having episodes of fever earlier and currently she is afebrile. Cultures obtained during this current hospitalization showed beta hemolytic strep group C in the sputum. The most recent chest x-ray that was done this morning showed cardiomegaly. She has a water bottle sign consistent with pericardial effusion. The patient is known to have moderate-sized pericardial effusion. Her echocardiogram was done on 02/18/2022 and the patient has a preserved LV functio n, moderate pericardial effusion, no tamponade 02/21/2022, patient remains in the ICU, not in any distress, patient is on 3 L nasal cannula, she passed her swallow evaluation, and she is going to be started on regular diet/renal diet. Patient is receiving hemodialysis again today. As she remains oliguric. And hardly any urine output. Patient is alert, oriented 3, does not seem to be in any distress. She is afebrile, blood pressure is 104/50 for heart rate is 70 O2 sats at 96% on 3 L. Her IV fluids at KVO. Patient is off norepinephrine since last night. Overall the patient is making a dramatic recovery remains quite edematous and swollen. WBC count is 7.4 hemoglobin is 7.1 electrolytes are normal BUN is 64 creatinine 6.38 today alkaline phosphatase is elevated at 829 her AST is 78 ALT is 47 her bilirubin is 0.8. Objective - Vital Signs Vital signs: Vital Signs Temp 98.3 F 02/21/22 08:00 Pulse 74 02/21/22 09:00 Resp 24 02/21/22 09:00 BP 104/54 02/21/22 09:00 Pulse Ox 98 02/21/22 09:00 FiO2 4 02/20/22 08:00 Intake & Output 02/20/22 02/21/22 02/21/22 18:59 06:59 18:59 Intake Total 340.170 670.000 60 Output Total 100 0 0 Balance 240.170 670.000 60 Weight 51.5 kg Intake: IV 240 240 60 0.9 @ 20ml/hr 140 240 60 Piperacillin-Tazobactam 3 100 .375 gm In Sodium Chloride 0.9% 100 ml @ 25 mls/hr IVPB Q12HR@0000, 1200 [facility] Rx#:[id number] Intake, IV Titration 100.170 430.000 Amount Norepinephrine 4 mg In 100.170 430.000 Sodium Chloride 0.9% 250 ml @ 0.05 MCG/KG/MIN 10. 077 mls/hr IV .Q24H [facility] Rx#:[id number] Output: Urine 0 0 0 Stool 100 Other: # Voids 0 0 ABP, PAP, CO, CI - Last Documented Arterial Blood Pressure 138/47 - Exam Physical Exam: Revealed a 51-year-old female in no distress on 3 L nasal cannula Head: Atraumatic, normocephalic. HEENT:[Neck is supple.] [No neck masses.] [No thyromegaly.] [No JVD.] PERRLA, EOMI, nonicteric. Chest: Symmetrical chest expansion bilaterally. Chest: [Clear throughout, no crackles, no rhonchi, no wheezes.] Cardiac Exam: [Normal S1 and S2, no S3 gallop, no murmur.] Abdomen: [Soft, nontender, no megaly, no rebound, no guarding, normal bowel sounds.] Extremities: [No clubbing, 2+ bipedal edema, no cyanosis.] Neurological Exam: [No focal neurologic deficit.] No gross focal neurologic deficit Psychiatric: Depressed mood, flat affect, normal mental status otherwise. - Labs CBC & Chem 7: 02/21/22 03:52 02/21/22 03:52 Labs: Abnormal Lab Results - Last 24 Hours (Table) 02/20/22 02/20/22 02/20/22 Range/Units 11:58 16:08 20:00 RBC (3.80-5.40) m/uL Hgb (11.4-16.0) gm/dL Hct (34.0-46.0) % RDW (11.5-15.5) % Plt Count (150-450) k/uL Lymphocytes # (1.0-4.8) k/uL Carbon Dioxide (22-30) mmol/L BUN (7-17) mg/dL Creatinine (0.52-1.04) mg/dL Glucose (74-99) mg/dL POC Glucose (mg/dL) 211 H 167 H 242 H (70-110) mg/dL AST (14-36) U/L ALT (4-34) U/L Alkaline Phosphatase (38-126) U/L Total Protein (6.3-8.2) g/dL 02/21/22 02/21/22 02/21/22 Range/Units 00:06 03:48 03:52 RBC 2.64 L (3.80-5.40) m/uL Hgb 7.1 L (11.4-16.0) gm/dL Hct 22.6 L (34.0-46.0) % RDW 15.8 H (11.5-15.5) % Plt Count 123 L (150-450) k/uL Lymphocytes # 0.3 L (1.0-4.8) k/uL Carbon Dioxide (22-30) mmol/L BUN (7-17) mg/dL Creatinine (0.52-1.04) mg/dL Glucose (74-99) mg/dL POC Glucose (mg/dL) 180 H 180 H (70-110) mg/dL AST (14-36) U/L ALT (4-34) U/L Alkaline Phosphatase (38-126) U/L Total Protein (6.3-8.2) g/dL 02/21/22 02/21/22 Range/Units 03:52 09:40 RBC (3.80-5.40) m/uL Hgb (11.4-16.0) gm/dL Hct (34.0-46.0) % RDW (11.5-15.5) % Plt Count (150-450) k/uL Lymphocytes # (1.0-4.8) k/uL Carbon Dioxide 18 L (22-30) mmol/L BUN 64 H (7-17) mg/dL Creatinine 6.38 H (0.52-1.04) mg/dL Glucose 179 H (74-99) mg/dL POC Glucose (mg/dL) 208 H (70-110) mg/dL AST 78 H (14-36) U/L ALT 47 H (4-34) U/L Alkaline Phosphatase 829 H (38-126) U/L Total Protein 5.9 L (6.3-8.2) g/dL Microbiology - Last 24 Hours (Table) 02/18/22 13:43 Stool Culture - Preliminary Stool 02/18/22 10:54 Blood Culture - Preliminary Blood No Growth after 48 hours Assessment and Plan Assessment: Impression: Cardiac arrest associated with hyperkalemia and fluid overload as well as found the bradycardia leading to asystole Acute hypoxic respiratory failure secondary to above requiring intubation and mechanical ventilation Moderate pericardial effusion, without tamponade Acute pulmonary edema secondary to cardiac arrest Questionable seizure activity, being addressed by neurology End-stage renal disease on hemodialysis Type 1 diabetes, on insulin coverage scale. Chronic anemia of chronic disease History of CVA/TIA History of COVID-19 infection May 2021 Recommendation: Continue to monitor in the ICU for the next 24 hours Continue hemodialysis Continue incentive spirometry Advanced diet as tolerated Monitor diarrhea, continue Imodium patient had negative screening for C. difficile Continue Zosyn for positive sputum for Streptococcus Continue Xanax Consider transferring to a cardiac floor/monitor bed in the next 24 hours We will continue to follow Time with Patient: Less than 30
[2022-02-21 11:25] LABS: Glucose,Whole Blood 149 mg/dL (70-110)
--- NOTE | 2022-02-21 11:46 | CDI ---
Documentation Clarification Form Date: 02/21/2022 10:59:23 AM From: Nguyen Bertrand RN CCDS Admit Date: 02/16/2022 12:46:00 PM Patient Name: Patsy Pizano Visit Number: [id number] Discharge Date: ATTENTION: The Clinical Documentation Specialists (CDI) and [facility] Coding Staff appreciate your assistance in clarifying documentation. Please respond to the clarification below the line at the bottom and electronically sign. The CDI & [facility] Coding staff will review the response and follow-up if needed. Please note: Queries are made part of the Legal Health Record. If you have any questions, please contact the author of this message via ITS. Dr. Roque Buckner There is documentation of Cardiorespiratory arrest, 02/18, H&P. Additional clarification is requested. History/Risk Factors: 31-year-old female presents to the ED with history of kidney failure and due for dialysis today called EMS for feeling lightheaded, dizzy, very weak found to be hypotensive by paramedics and heart rate of 44-46 beats a minute. Medical History: ESRD with hemodialysis M/W/F, IDDM Type 1; Sever hypokalemia and HTN. ED Note, 02/21. Clinical Indicators: VSS: 02/16 B/P 83/50; HR 39; Temp 98.1F; RR 20; SpO2 96% 2L nasal cannula CXR: 02/16 Diffuse airspace disease is seen throughout both lung herr. CXR: 02/17 Improvement in patients pulmonary edema. Pulmonary note: 02/16 Equal air entry with no crackles, wheeze, rhonchi or dullness. ECHO: 02/18 EF 50-55% Left ventricular cavity size normal Mild concentric left ventricular hypertrophy. Normal systolic function moderate pericardial effusion. Treatment: 02/16 Lasix 40mg IV x 1; 02/16 Humulin R 10-unit IV x 1; 02/16 Lasix 40mg IV x 1; 02/16 Humulin R 10-unit IV x 1; 02/16 02/16 Insulin Human Regular Titrate; 02/16 Calcium Gluconate / Sodium Chloride 1gm IVPB x 1; 02/20 Coreg 12.5mg PO BID. In your professional opinion, can you please clarify which diagnosis, after study, was the reason chiefly responsible for the admission. [ ] Cardiorespiratory arrest due to Acute Diastolic CHF [ ] Cardiorespiratory arrest due to Hyperkalemia [ ] Cardiorespiratory arrest due to Fluid overload from missed dialysis [ ] Other, please specify [ ] Unable to determine (Template Last Revised: July 2020) MTDD
[2022-02-21] MEDS: LOPERAMIDE 2 MG CAP PO PRN ×2 (14:07→20:17)
[2022-02-21] MEDS: SODIUM CHLORIDE 0.9% 1,000 ML IV SCH (14:12)
[2022-02-21 16:47] LABS: Glucose,Whole Blood 300 mg/dL (70-110)
[2022-02-21] MEDS: CLEVIDIPINE BUTYRATE 25 MG in EMPTY BAG 1 BAG IV SCH (20:41)
[2022-02-21 20:55] LABS: Glucose,Whole Blood 166 mg/dL (70-110)
--- NOTE | 2022-02-21 22:07 | P.PN ---
Subjective Progress Note Date: 02/21/22 Principal diagnosis: Fever/aspiration pneumonia Patient is a 31-year-old female with multiple comorbidities including end-stage renal disease on hemodialysis, Presented to hospital with lightheadedness disease patient did have a bradycardia arrhythmia and subsequently did have a cardiac arrest requiring intubation and did have a fever with left-sided infiltrate concerning for possible aspiration pneumonia. The patient has been extubated afternoon of 02/19/2022 on today's evaluation that Is 02/21/2022, the patient remains to be afebrile, the patient is breathing comfortably on nasal cannula oxygen, the patient denies chest pain she did have a cough but dry in nature, no vomiting no abdominal pain she still have the fecal management system overall output has decreased per the nursing staff Objective - Vital Signs Vital signs: Vital Signs Temp 97.8 F 02/21/22 12:02 Pulse 74 02/21/22 12:02 Resp 19 02/21/22 12:02 BP 134/49 02/21/22 12:02 Pulse Ox 93 L 02/21/22 12:00 FiO2 4 02/20/22 08:00 Intake & Output 02/20/22 02/21/22 02/21/22 18:59 06:59 18:59 Intake Total 340.170 670.000 420 Output Total 100 0 2500 Balance 240.170 670.000 -2080 Weight 51.5 kg Intake: IV 240 240 120 0.9 @ 20ml/hr 140 240 120 Piperacillin-Tazobactam 3 100 .375 gm In Sodium Chloride 0.9% 100 ml @ 25 mls/hr IVPB Q12HR@0000, 1200 [facility] Rx#:[id number] Intake, IV Titration 100.170 430.000 Amount Norepinephrine 4 mg In 100.170 430.000 Sodium Chloride 0.9% 250 ml @ 0.05 MCG/KG/MIN 10. 077 mls/hr IV .Q24H [facility] Rx#:[id number] Hemodialysis 300 Output: Urine 0 0 0 Stool 100 Hemodialysis 2500 Other: # Voids 0 0 ABP, PAP, CO, CI - Last Documented Arterial Blood Pressure 132/46 - Exam GENERAL DESCRIPTION: Middle-aged female lying in bed in no distress RESPIRATORY SYSTEM: Unlabored breathing , decreased breath sounds at bases HEART: S1 S2 regular rate and rhythm , ABDOMEN: Soft , no tenderness EXTREMITIES: No edema feet - Labs CBC & Chem 7: 02/21/22 03:52 02/21/22 11:25 Labs: Abnormal Lab Results - Last 24 Hours (Table) 02/20/22 02/20/22 02/21/22 Range/Units 16:08 20:00 00:06 RBC (3.80-5.40) m/uL Hgb (11.4-16.0) gm/dL Hct (34.0-46.0) % RDW (11.5-15.5) % Plt Count (150-450) k/uL Lymphocytes # (1.0-4.8) k/uL Potassium (3.5-5.1) mmol/L Carbon Dioxide (22-30) mmol/L BUN (7-17) mg/dL Creatinine (0.52-1.04) mg/dL Glucose (74-99) mg/dL POC Glucose (mg/dL) 167 H 242 H 180 H (70-110) mg/dL AST (14-36) U/L ALT (4-34) U/L Alkaline Phosphatase (38-126) U/L Total Protein (6.3-8.2) g/dL 02/21/22 02/21/22 02/21/22 Range/Units 03:48 03:52 03:52 RBC 2.64 L (3.80-5.40) m/uL Hgb 7.1 L (11.4-16.0) gm/dL Hct 22.6 L (34.0-46.0) % RDW 15.8 H (11.5-15.5) % Plt Count 123 L (150-450) k/uL Lymphocytes # 0.3 L (1.0-4.8) k/uL Potassium (3.5-5.1) mmol/L Carbon Dioxide 18 L (22-30) mmol/L BUN 64 H (7-17) mg/dL Creatinine 6.38 H (0.52-1.04) mg/dL Glucose 179 H (74-99) mg/dL POC Glucose (mg/dL) 180 H (70-110) mg/dL AST 78 H (14-36) U/L ALT 47 H (4-34) U/L Alkaline Phosphatase 829 H (38-126) U/L Total Protein 5.9 L (6.3-8.2) g/dL 02/21/22 02/21/22 02/21/22 Range/Units 09:40 11:23 11:25 RBC (3.80-5.40) m/uL Hgb (11.4-16.0) gm/dL Hct (34.0-46.0) % RDW (11.5-15.5) % Plt Count (150-450) k/uL Lymphocytes # (1.0-4.8) k/uL Potassium 3.2 L (3.5-5.1) mmol/L Carbon Dioxide (22-30) mmol/L BUN (7-17) mg/dL Creatinine (0.52-1.04) mg/dL Glucose (74-99) mg/dL POC Glucose (mg/dL) 208 H 149 H (70-110) mg/dL AST (14-36) U/L ALT (4-34) U/L Alkaline Phosphatase (38-126) U/L Total Protein (6.3-8.2) g/dL Microbiology - Last 24 Hours (Table) 02/18/22 13:43 Stool Culture - Preliminary Stool 02/18/22 10:54 Blood Culture - Preliminary Blood No Growth after 48 hours Assessment and Plan (1) Fever Current Visit: No Status: Acute Code(s): R50.9 - FEVER, UNSPECIFIED SNOMED Code(s): 386431311 Plan: 1patient with a fever of 102 F in this patient presenting to the hospital with weakness patient was noticed to be bradycardic and did have a cardiac arrest with significant amount of oropharyngeal secretion and left-sided infiltrate concerning for possible aspiration pneumonitis.Patient did have a negative COVID and influenza PCR 2the patient blood has been negative sputum has been finalized with beta- hemolytic group G strep 3patient had shown some clinical improvement and will continue with Unasyn and monitor clinical course closely Time with Patient: Less than 30
[2022-02-21 23:42] LABS: Glucose,Whole Blood 251 mg/dL (70-110)
[2022-02-22 00:13] LABS: Glucose,Whole Blood 245 mg/dL (70-110)
[2022-02-22] MEDS: INSULIN ASPART (NovoLOG) 100 UNIT/ML VIAL SQ SCH ×6 (00:16→20:36)
[2022-02-22] MEDS: HYDROmorphone 1 MG/ML 1 ML SYRINGE IVP PRN ×2 (00:20→04:05)
[2022-02-22 04:14] LABS: Glucose,Whole Blood 292 mg/dL (70-110)
[2022-02-22 04:37] LABS: Basophils % (A) 0 %; Eosinophils # (A) 0.2 k/uL (0-0.7); Eosinophils % (A) 4 %; HCT 20.8 % (34.0-46.0); Hypochromasia Moderate; Lymphocytes # (A) 0.3 k/uL (1.0-4.8); Lymphocytes % (A) 7 %; MCH 27.6 pg (25.0-35.0); Mean Platelet Volume 10.2; Monocytes # (A) 0.4 k/uL (0-1.0); Monocytes % (A) 8 %; Neutrophils # (A) 3.5 k/uL (1.3-7.7); Neutrophils % (A) 78 %; Platelet Count 100 k/uL (150-450); RBC 2.33 m/uL (3.80-5.40); RDW 15.7 % (11.5-15.5); WBC 4.6 k/uL (3.8-10.6)
[2022-02-22 04:50] LABS: Albumin 3.4 g/dL (3.5-5.0); Potassium 3.8 mmol/L (3.5-5.1); Total Bilirubin 0.7 mg/dL (0.2-1.3); Total Protein 5.6 g/dL (6.3-8.2)
[2022-02-22 05:21] LABS: HGB 6.4 gm/dL (11.4-16.0)
[2022-02-22] MEDS: carvediloL 12.5 MG TAB PO SCH ×2 (07:04→17:11)
[2022-02-22 08:12] LABS: Glucose,Whole Blood 294 mg/dL (70-110)
[2022-02-22] MEDS: AMPICILLIN-SULBACTAM 3 GM in SODIUM CHLORIDE 0.9% 100 ML IVPB SCH (08:12)
[2022-02-22] MEDS: ASPIRIN 81 MG PO SCH (08:13)
[2022-02-22] MEDS: ATORVASTATIN 40 MG TAB PO SCH (08:13)
[2022-02-22] MEDS: buPROPion SR 150 MG TABLET.ER PO SCH ×2 (08:14→20:59)
[2022-02-22] MEDS: PANTOPRAZOLE 40 MG/10 ML VIAL IV SCH (08:14)
[2022-02-22] MEDS: ESCITALOPRAM 20 MG TAB PO SCH (08:15)
[2022-02-22] MEDS: PRAZOSIN 1 MG CAP PO SCH ×2 (08:15→22:09)
[2022-02-22] MEDS ORDERED: SODIUM BICARB 8.4% 50 ML SYR (1 MEQ/ML) IV STA (08:58)
--- NOTE | 2022-02-22 09:00 | P.PN ---
Subjective Patient is seen in follow-up for end-stage renal disease. Tolerated 2.5 L ultrafiltration yesterday. Blood pressure stable. Resting in bed. No active complaints. No active bleeding per nurse. Hemoglobin 6.4 today. Vital signs are stable. General: Resting in bed. HEENT: Head exam is unremarkable. On nasal cannula. LUNGS: Breath sounds decreased. HEART: Rate and Rhythm are regular. ABDOMEN: Soft, no distention. EXTREMITITES: No edema. Objective - Vital Signs Vital signs: Vital Signs Temp 98.4 F 02/22/22 04:00 Pulse 84 02/22/22 07:00 Resp 19 02/22/22 07:00 BP 113/57 02/22/22 07:00 Pulse Ox 97 02/22/22 07:00 FiO2 4 02/20/22 08:00 Intake & Output 02/21/22 02/22/22 02/22/22 18:59 06:59 18:59 Intake Total 560 234.8 20 Output Total 2500 0 Balance -1940 234.8 20 Weight 50 kg 50 kg Intake: IV 260 220 20 0.9 @ 20ml/hr 260 220 20 Intake, IV Titration 14.8 Amount Clevidipine Butyrate 25 14.8 mg In Empty Bag 1 bag @ 1 MG/HR 2 mls/hr IV .Q24H [facility] Rx#:[id number] Hemodialysis 300 Output: Urine 0 0 Hemodialysis 2500 Other: # Bowel Movements 1 ABP, PAP, CO, CI - Last Documented Arterial Blood Pressure 148/52 - Labs CBC & Chem 7: 02/22/22 04:00 02/22/22 04:00 Labs: Abnormal Lab Results - Last 24 Hours (Table) 02/21/22 02/21/22 02/21/22 Range/Units 09:40 11:23 11:25 RBC (3.80-5.40) m/uL Hgb (11.4-16.0) gm/dL Hct (34.0-46.0) % RDW (11.5-15.5) % Plt Count (150-450) k/uL Lymphocytes # (1.0-4.8) k/uL Sodium (137-145) mmol/L Potassium 3.2 L (3.5-5.1) mmol/L Chloride (98-107) mmol/L Carbon Dioxide (22-30) mmol/L BUN (7-17) mg/dL Creatinine (0.52-1.04) mg/dL Glucose (74-99) mg/dL POC Glucose (mg/dL) 208 H 149 H (70-110) mg/dL AST (14-36) U/L ALT (4-34) U/L Alkaline Phosphatase (38-126) U/L Total Protein (6.3-8.2) g/dL Albumin (3.5-5.0) g/dL Crossmatch 02/21/22 02/21/22 02/21/22 Range/Units 16:46 20:54 23:41 RBC (3.80-5.40) m/uL Hgb (11.4-16.0) gm/dL Hct (34.0-46.0) % RDW (11.5-15.5) % Plt Count (150-450) k/uL Lymphocytes # (1.0-4.8) k/uL Sodium (137-145) mmol/L Potassium (3.5-5.1) mmol/L Chloride (98-107) mmol/L Carbon Dioxide (22-30) mmol/L BUN (7-17) mg/dL Creatinine (0.52-1.04) mg/dL Glucose (74-99) mg/dL POC Glucose (mg/dL) 300 H 166 H 251 H (70-110) mg/dL AST (14-36) U/L ALT (4-34) U/L Alkaline Phosphatase (38-126) U/L Total Protein (6.3-8.2) g/dL Albumin (3.5-5.0) g/dL Crossmatch 02/22/22 02/22/22 02/22/22 Range/Units 00:11 04:00 04:00 RBC 2.33 L (3.80-5.40) m/uL Hgb 6.4 L* (11.4-16.0) gm/dL Hct 20.8 L (34.0-46.0) % RDW 15.7 H (11.5-15.5) % Plt Count 100 L (150-450) k/uL Lymphocytes # 0.3 L (1.0-4.8) k/uL Sodium 135 L (137-145) mmol/L Potassium (3.5-5.1) mmol/L Chloride 95 L (98-107) mmol/L Carbon Dioxide 16 L (22-30) mmol/L BUN 41 H (7-17) mg/dL Creatinine 4.06 H (0.52-1.04) mg/dL Glucose 268 H (74-99) mg/dL POC Glucose (mg/dL) 245 H (70-110) mg/dL AST 80 H (14-36) U/L ALT 60 H (4-34) U/L Alkaline Phosphatase 1032 H (38-126) U/L Total Protein 5.6 L (6.3-8.2) g/dL Albumin 3.4 L (3.5-5.0) g/dL Crossmatch 02/22/22 02/22/22 02/22/22 Range/Units 04:13 06:10 08:11 RBC (3.80-5.40) m/uL Hgb (11.4-16.0) gm/dL Hct (34.0-46.0) % RDW (11.5-15.5) % Plt Count (150-450) k/uL Lymphocytes # (1.0-4.8) k/uL Sodium (137-145) mmol/L Potassium (3.5-5.1) mmol/L Chloride (98-107) mmol/L Carbon Dioxide (22-30) mmol/L BUN (7-17) mg/dL Creatinine (0.52-1.04) mg/dL Glucose (74-99) mg/dL POC Glucose (mg/dL) 292 H 294 H (70-110) mg/dL AST (14-36) U/L ALT (4-34) U/L Alkaline Phosphatase (38-126) U/L Total Protein (6.3-8.2) g/dL Albumin (3.5-5.0) g/dL Crossmatch See Detail Microbiology - Last 24 Hours (Table) 02/18/22 13:43 Stool Culture - Final Stool 02/18/22 10:54 Blood Culture - Preliminary Blood No Growth after 72 hours Assessment and Plan Plan: Assessment: 1. End-stage renal disease maintained on hemodialysis on Monday schedule. 2. Status post cardiac arrest. Patient was hyperkalemic and bradycardic. 3. Hyperkalemia secondary to chronic kidney disease and hyperglycemia. Resolved. Subsequently required potassium replacement. 4. Metabolic acidosis secondary to chronic kidney disease. 5. Volume overload. Improved with ultrafiltration. 6. Chronic diastolic CHF. 7. Pericardial effusion. Antihistone antibodies positive in the past. 8. Anemia of chronic kidney disease. Iron replete. On Aranesp. No active bleeding. Hemoglobin 6.4 today. 9. Hypertension with chronic kidney disease. Currently controlled. Plan: Hemodialysis tomorrow. Add oral bicarbonate. Scheduled to receive a unit of blood today. Avoid minoxidil and hydralazine due to pericardial effusion. Avoid medicines that can raise potassium levels including Acei/ARB and spironolactone. Life-threatening risks including cardiac arrest associated with hyperkalemia and severely uncontrolled blood sugars have been discussed with the patient multiple times.
[2022-02-22] MEDS: SODIUM BICARBONATE TAB 650 MG TAB PO SCH ×3 (10:12→20:59)
[2022-02-22] MEDS: ONDANSETRON 4 MG/2 ML VIAL IVP PRN ×2 (11:09→21:00)
[2022-02-22] MEDS ORDERED: METOCLOPRAMIDE 5 MG/ML 2 ML VIAL IVP PRN (11:24)
[2022-02-22 11:58] LABS: Glucose,Whole Blood 362 mg/dL (70-110); Glucose,Whole Blood 369 mg/dL (70-110)
[2022-02-22] MEDS: ALPRAZolam 0.5 MG TAB PO PRN ×2 (12:04→21:10)
[2022-02-22] MEDS: ACETAMINOPHEN TAB 325 MG TAB PO PRN (12:43)
[2022-02-22] MEDS ORDERED: INSULIN DETEMIR (LEVEMIR) 100 UNIT/ML SYR SQ STA (12:50)
--- NOTE | 2022-02-22 13:11 | P.PN ---
Subjective Progress Note Date: 02/22/22 Principal diagnosis: Cardiac arrest 31-year-old female patient with multiple medical present comorbidities. The patient is known to have type 1 diabetes mellitus, and the patient has end-stage renal disease and the patient is on hemodialysis. Blood sugar control with that over the years and the patient has had previous hospitalizations for pneumonia, missed dialysis, she is for hyperkalemia and fluid overload and pulmonary edema. She has also also been treated for hypertensive emergencies. The patient brought into the emergency department today as the patient was feeling lightheaded and dizzy and very weak. The patient was due for dialysis today. She is undergoing dialysis today. The patient was found to be bradycardic by EMS and the patient's heart rate was in the low 40s. She was brought into the emergency and she had a blood pressure 75/45 with a pulse ox of 90% on room air. Heart rate subsequently slowed down further went down to the 30s and following that the patient was feeling anxious and jittery denies having any chest pain. Subsequently, she goes into a cardiac arrest, asystole and the patient was resuscitated with a downtime estimated to be around 10 minutes. The patient went into asystole and CPR was initiated immediately. She did require intubation. I was also told that this was a difficult intubation as the patient has copious amount of frothy colored material in the posterior oropharynx which was suctioned out. During the course of her treatment, the patient was given hyperkalemia cocktail. The blood work came back with a sodium level of 128, potassium level was 5 and the patient had a chloride of 89 with a bicarb of 20 with a 53 and a creatinine of 7.52. The patient had a flexor count of 4.4 hemoglobin 8.7 and a platelet count of 175. The blood gases on 100% FiO2 showed a pH of 7.36 with a pCO2 of 38 and pO2 of 52. This was the blood gases was done immediately after intubation. The patient is currently in the intensive care unit on assist-control mode of mechanical ventilation at the rate of 20, tidal volume of 400, FiO2 of 100% with a PEEP of 8. Current pulse ox is 96%. The patient is sedated with propofol which is running at 50 mcg/kg per minute. The patient was also started on pressors for hypotension. Norepinephrine is running at 0.18 mcg/kg per minute. Post intubation chest x-ray showed cardiomegaly and pulmonary edema. ET tube is in a good location. The patient also has a orogastric tube which is in good location. She is arousable and she response to stimulation and she is moving all 4 extremities without any limitation.. On her blood work, the patient has a white cell count of 4.1 with a hemoglobin of 8.7 and a platelet count of 175. Her proBNP level was 49,200. Troponin was neg ative. Most recent blood sugar is at 562. 02/20/2022, the patient is extubated. Her last dialysis session was yesterday and she had dialysis with ultrafiltration of 2 L and following that, the patient was taken off sedation and after some initial difficulties, she was able to do a brief smoked is breathing trial and following that I extubated the patient and currently she does still extubated on oxygen at 3 L nasal cannula. She is breathing comfortably. Postextubation, she became slightly anxious and her blood pressure went up. I had to put her back on Topamax for blood pressure control and currently she is off Her blood pressure is maintained adequately. She is slightly hypertensive. Her most recent BP is 159/75. She is on /Procardia XL 120 mg by mouth daily. She is also taken Minipress 5 mg by mouth twice a day. There has been some restriction in her blood pressure medications as the patient was taken off Coreg and clonidine because of bradycardia and off losartan because of difficulties with hyperkalemia. We are going to continue the current antihypertensive medications for now. Her blood sugar is very brittle and she fluctuates between hyperglycemia and hypoglycemia. We opted to keep her only on sliding scale coverage. Another issue is ongoing diarrhea that she is encountered. The patient has a fecal management system in place and the stool for C. diff has been negative. She continues to have liquidy stool. ID evaluated the patient the patient was started on IV Zosyn as the patient was having episodes of fever earlier and currently she is afebrile. Cultures obtained during this current hospitalization showed beta hemolytic strep group C in the sputum. The most recent chest x-ray that was done this morning showed cardiomegaly. She has a water bottle sign consistent with pericardial effusion. The patient is known to have moderate-sized pericardial effusion. Her echocardiogram was done on 02/18/2022 and the patient has a preserved LV functio n, moderate pericardial effusion, no tamponade 02/21/2022, patient remains in the ICU, not in any distress, patient is on 3 L nasal cannula, she passed her swallow evaluation, and she is going to be started on regular diet/renal diet. Patient is receiving hemodialysis again today. As she remains oliguric. And hardly any urine output. Patient is alert, oriented 3, does not seem to be in any distress. She is afebrile, blood pressure is 104/50 for heart rate is 70 O2 sats at 96% on 3 L. Her IV fluids at KVO. Patient is off norepinephrine since last night. Overall the patient is making a dramatic recovery remains quite edematous and swollen. WBC count is 7.4 hemoglobin is 7.1 electrolytes are normal BUN is 64 creatinine 6.38 today alkaline phosphatase is elevated at 829 her AST is 78 ALT is 47 her bilirubin is 0.8. 02/22/22, patient remains in the ICU, she is on 4 L nasal cannula, does not seem to be in any distress. Patient dropped her hemoglobin since yesterday, patient underwent dialysis yesterday, and her hemoglobin today is 6.4. She will receive a unit of packed RBCs. She is not scheduled to have hemodialysis today, but she will have one tomorrow. Yesterday 2.5 L of fluids were removed. Patient had the sputum positive for Streptococcus, and she is now on Unasyn. Overall the patient seems to be doing well, remained generally weak, but not in any distress. WBC count is 4.6 hemoglobin is 6.4 no evidence of any active bleeding. Electrolytes are normal BUN is 41 creatinine 4.06. Blood sugar is 260 Objective - Vital Signs Vital signs: Vital Signs Temp 98.3 F 02/22/22 10:57 Pulse 78 02/22/22 11:00 Resp 39 H 02/22/22 11:00 BP 115/54 02/22/22 11:00 Pulse Ox 98 02/22/22 11:00 FiO2 4 02/20/22 08:00 Intake & Output 02/21/22 02/22/22 02/22/22 18:59 06:59 18:59 Intake Total 560 234.8 482 Output Total 2500 0 0 Balance -1940 234.8 482 Weight 50 kg 50 kg Intake: IV 260 220 200 0.9 @ 20ml/hr 260 220 100 Piperacillin-Tazobactam 3 100 .375 gm In Sodium Chloride 0.9% 100 ml @ 25 mls/hr IVPB Q12HR@0000, 1200 [facility] Rx#:[id number] Intake, IV Titration 14.8 Amount Clevidipine Butyrate 25 14.8 mg In Empty Bag 1 bag @ 1 MG/HR 2 mls/hr IV .Q24H [facility] Rx#:[id number] Blood Product 282 Rc Pheresis 2 As3 Unit 282 [id number] Hemodialysis 300 Output: Urine 0 0 0 Hemodialysis 2500 Other: # Bowel Movements 1 ABP, PAP, CO, CI - Last Documented Arterial Blood Pressure 120/48 - Exam Physical Exam: Revealed a 51-year-old female in no distress on 4 L nasal cannula Head: Atraumatic, normocephalic. HEENT:[Neck is supple.] [No neck masses.] [No thyromegaly.] [No JVD.] PERRLA, EOMI, nonicteric. Chest: Symmetrical chest expansion bilaterally. Chest: [Clear throughout, no crackles, no rhonchi, no wheezes.] Cardiac Exam: [Normal S1 and S2, no S3 gallop, no murmur.] Abdomen: [Soft, nontender, no megaly, no rebound, no guarding, normal bowel sounds.] Extremities: [No clubbing, no edema, no cyanosis Neurological Exam: [No focal neurologic deficit.] No gross focal neurologic d eficit Psychiatric: Normal mood, affect and normal mental status examination. - Labs CBC & Chem 7: 02/22/22 04:00 02/22/22 04:00 Labs: Abnormal Lab Results - Last 24 Hours (Table) 02/21/22 02/21/22 02/21/22 Range/Units 16:46 20:54 23:41 RBC (3.80-5.40) m/uL Hgb (11.4-16.0) gm/dL Hct (34.0-46.0) % RDW (11.5-15.5) % Plt Count (150-450) k/uL Lymphocytes # (1.0-4.8) k/uL Sodium (137-145) mmol/L Chloride (98-107) mmol/L Carbon Dioxide (22-30) mmol/L BUN (7-17) mg/dL Creatinine (0.52-1.04) mg/dL Glucose (74-99) mg/dL POC Glucose (mg/dL) 300 H 166 H 251 H (70-110) mg/dL AST (14-36) U/L ALT (4-34) U/L Alkaline Phosphatase (38-126) U/L Total Protein (6.3-8.2) g/dL Albumin (3.5-5.0) g/dL Crossmatch 02/22/22 02/22/22 02/22/22 Range/Units 00:11 04:00 04:00 RBC 2.33 L (3.80-5.40) m/uL Hgb 6.4 L* (11.4-16.0) gm/dL Hct 20.8 L (34.0-46.0) % RDW 15.7 H (11.5-15.5) % Plt Count 100 L (150-450) k/uL Lymphocytes # 0.3 L (1.0-4.8) k/uL Sodium 135 L (137-145) mmol/L Chloride 95 L (98-107) mmol/L Carbon Dioxide 16 L (22-30) mmol/L BUN 41 H (7-17) mg/dL Creatinine 4.06 H (0.52-1.04) mg/dL Glucose 268 H (74-99) mg/dL POC Glucose (mg/dL) 245 H (70-110) mg/dL AST 80 H (14-36) U/L ALT 60 H (4-34) U/L Alkaline Phosphatase 1032 H (38-126) U/L Total Protein 5.6 L (6.3-8.2) g/dL Albumin 3.4 L (3.5-5.0) g/dL Crossmatch 02/22/22 02/22/22 02/22/22 Range/Units 04:13 06:10 08:11 RBC (3.80-5.40) m/uL Hgb (11.4-16.0) gm/dL Hct (34.0-46.0) % RDW (11.5-15.5) % Plt Count (150-450) k/uL Lymphocytes # (1.0-4.8) k/uL Sodium (137-145) mmol/L Chloride (98-107) mmol/L Carbon Dioxide (22-30) mmol/L BUN (7-17) mg/dL Creatinine (0.52-1.04) mg/dL Glucose (74-99) mg/dL POC Glucose (mg/dL) 292 H 294 H (70-110) mg/dL AST (14-36) U/L ALT (4-34) U/L Alkaline Phosphatase (38-126) U/L Total Protein (6.3-8.2) g/dL Albumin (3.5-5.0) g/dL Crossmatch See Detail 02/22/22 02/22/22 Range/Units 11:55 11:55 RBC (3.80-5.40) m/uL Hgb (11.4-16.0) gm/dL Hct (34.0-46.0) % RDW (11.5-15.5) % Plt Count (150-450) k/uL Lymphocytes # (1.0-4.8) k/uL Sodium (137-145) mmol/L Chloride (98-107) mmol/L Carbon Dioxide (22-30) mmol/L BUN (7-17) mg/dL Creatinine (0.52-1.04) mg/dL Glucose (74-99) mg/dL POC Glucose (mg/dL) 362 H 369 H (70-110) mg/dL AST (14-36) U/L ALT (4-34) U/L Alkaline Phosphatase (38-126) U/L Total Protein (6.3-8.2) g/dL Albumin (3.5-5.0) g/dL Crossmatch Microbiology - Last 24 Hours (Table) 02/18/22 13:43 Stool Culture - Final Stool 02/18/22 10:54 Blood Culture - Preliminary Blood No Growth after 72 hours Assessment and Plan Assessment: Impression: Cardiac arrest associated with hyperkalemia and fluid overload as well as bradycardia leading to asystole Acute hypoxic respiratory failure secondary to above requiring intubation and mechanical ventilation Moderate pericardial effusion, without tamponade Acute pulmonary edema secondary to cardiac arrest Questionable seizure activity, being addressed by neurology End-stage renal disease on hemodialysis Type 1 diabetes, on insulin coverage scale. Chronic anemia of chronic disease History of CVA/TIA History of COVID-19 infection May 2021 Recommendation: Transfer patient out of the ICU to a cardiac floor. Continue to monitor. Transfusions with 1 unit of packed RBCs today. Continue hemodialysis Continue incentive spirometry Renal diet. Continue Unasyn. Continue continue insulin as per scale. Continue Xanax, as needed We'll continue to follow Time with Patient: Less than 30
[2022-02-22 13:12] LABS: HCT 23.7 % (34.0-46.0); HGB 7.5 gm/dL (11.4-16.0); Hypochromasia Slight; MCH 27.2 pg (25.0-35.0); MCHC 31.7 g/dL (31.0-37.0); MCV 85.6 fL (80.0-100.0); Mean Platelet Volume 11.2; Platelet Count 106 k/uL (150-450); RBC 2.77 m/uL (3.80-5.40); RDW 15.3 % (11.5-15.5); WBC 4.4 k/uL (3.8-10.6)
[2022-02-22 16:54] LABS: Glucose,Whole Blood 298 mg/dL (70-110)
[2022-02-22] MEDS: SODIUM CHLORIDE 0.9% 1,000 ML IV SCH (17:12)
[2022-02-22 19:05] LABS: Glucose,Whole Blood 121 mg/dL (70-110)
--- NOTE | 2022-02-22 20:51 | PN ---
PROGRESS NOTE CHIEF COMPLAINT: Cardiorespiratory arrest. HISTORY OF PRESENT ILLNESS: This lady is doing slightly better each day and is a little bit more alert. The dialysis continues. Her vital signs are normal. PHYSICAL EXAMINATION: CHEST: Clear. CARDIAC: Exam is normal. ABDOMEN: Soft and nontender. IMPRESSION: 1. Status post cardiorespiratory arrest. 2. Chronic renal failure. 3. Type 1 insulin-dependent diabetes mellitus. PLAN: 1. Continue with ICU support until she is able to be transferred to telemetry. 2. Mother is seeking guardianship. MMODL / IJN: [id number] /
[2022-02-22] MEDS: INSULIN DETEMIR (LEVEMIR) 100 UNIT/ML SYR SQ SCH (20:59)
[2022-02-23 01:55] LABS: Glucose,Whole Blood 160 mg/dL (70-110)
[2022-02-23] MEDS: INSULIN ASPART (NovoLOG) 100 UNIT/ML VIAL SQ SCH ×6 (03:33→21:12)
[2022-02-23 04:24] LABS: Glucose,Whole Blood 128 mg/dL (70-110)
[2022-02-23] MEDS: carvediloL 12.5 MG TAB PO SCH ×2 (06:49→17:59)
[2022-02-23 08:11] LABS: Glucose,Whole Blood 116 mg/dL (70-110)
--- NOTE | 2022-02-23 08:54 | MISC ---
MISCELLANOUS REPORT Cardiorespiratory arrest, unable to determine. MMODL / IJN: [id number] /
[2022-02-23] MEDS: AMPICILLIN-SULBACTAM 3 GM in SODIUM CHLORIDE 0.9% 100 ML IVPB SCH ×3 (09:30→16:05)
--- NOTE | 2022-02-23 10:25 | P.PN ---
Subjective Patient is seen in follow-up for end-stage renal disease. Blood pressure stable. Resting in bed. No active complaints. No active bleeding per nurse. Hemoglobin improved post blood transfusion. Vital signs are stable. General: Resting in bed. HEENT: Head exam is unremarkable. On nasal cannula. LUNGS: Breath sounds decreased. HEART: Rate and Rhythm are regular. ABDOMEN: Soft, no distention. EXTREMITITES: No edema. Objective - Vital Signs Vital signs: Vital Signs Temp 97.9 F 02/23/22 08:00 Pulse 72 02/23/22 08:00 Resp 18 02/23/22 08:00 BP 122/67 02/23/22 08:00 Pulse Ox 98 02/23/22 08:00 FiO2 4 02/20/22 08:00 Intake & Output 02/22/22 02/23/22 02/23/22 18:59 06:59 18:59 Intake Total 422 Output Total 1 Balance 421 Weight 50 kg 64.5 kg Intake: IV 140 0.9 @ 20ml/hr 140 Blood Product 282 Rc Pheresis 2 As3 Unit 282 [id number] Output: Urine 1 Other: # Voids 0 # Bowel Movements 1 ABP, PAP, CO, CI - Last Documented Arterial Blood Pressure 141/52 - Labs CBC & Chem 7: 02/22/22 12:50 02/22/22 04:00 Labs: Abnormal Lab Results - Last 24 Hours (Table) 02/22/22 02/22/22 02/22/22 Range/Units 06:10 11:55 11:55 RBC (3.80-5.40) m/uL Hgb (11.4-16.0) gm/dL Hct (34.0-46.0) % Plt Count (150-450) k/uL POC Glucose (mg/dL) 362 H 369 H (70-110) mg/dL Crossmatch See Detail 02/22/22 02/22/22 02/22/22 Range/Units 12:50 16:40 19:03 RBC 2.77 L (3.80-5.40) m/uL Hgb 7.5 L (11.4-16.0) gm/dL Hct 23.7 L (34.0-46.0) % Plt Count 106 L (150-450) k/uL POC Glucose (mg/dL) 298 H 121 H (70-110) mg/dL Crossmatch 02/23/22 02/23/22 02/23/22 Range/Units 01:53 04:23 08:00 RBC (3.80-5.40) m/uL Hgb (11.4-16.0) gm/dL Hct (34.0-46.0) % Plt Count (150-450) k/uL POC Glucose (mg/dL) 160 H 128 H 116 H (70-110) mg/dL Crossmatch Microbiology - Last 24 Hours (Table) 02/18/22 10:54 Blood Culture - Preliminary Blood No Growth after 96 hours Assessment and Plan Plan: Assessment: 1. End-stage renal disease maintained on hemodialysis on Monday schedule. 2. Status post cardiac arrest. Patient was hyperkalemic and bradycardic. 3. Hyperkalemia secondary to chronic kidney disease and hyperglycemia. Resolved. Subsequently required potassium replacement. 4. Metabolic acidosis secondary to chronic kidney disease. On oral bicarbonate. Also expect improvement postdialysis. 5. Volume overload. Improved with ultrafiltration. 6. Chronic diastolic CHF. 7. Pericardial effusion. Antihistone antibodies positive in the past. 8. Anemia of chronic kidney disease. Iron replete. On Aranesp. No active bleeding. Status post blood transfusion this admission. 9. Hypertension with chronic kidney disease. Currently controlled. Plan: Hemodialysis today. Avoid minoxidil and hydralazine due to pericardial effusion. Avoid medicines that can raise potassium levels including Acei/ARB and spironolactone. Life-threatening risks including cardiac arrest associated with hyperkalemia and severely uncontrolled blood sugars have been discussed with the patient multiple times.
[2022-02-23] MEDS: ACETAMINOPHEN TAB 325 MG TAB PO PRN (10:33)
[2022-02-23] MEDS: ALPRAZolam 0.5 MG TAB PO PRN ×2 (10:34→21:11)
[2022-02-23 10:42] LABS: Basophils % (A) 0 %; Eosinophils # (A) 0.2 k/uL (0-0.7); Eosinophils % (A) 5 %; HCT 24.2 % (34.0-46.0); Lymphocytes # (A) 0.5 k/uL (1.0-4.8); Lymphocytes % (A) 10 %; MCH 27.3 pg (25.0-35.0); MCHC 33.2 g/dL (31.0-37.0); MCV 82.5 fL (80.0-100.0); Monocytes # (A) 0.3 k/uL (0-1.0); Monocytes % (A) 6 %; Neutrophils # (A) 3.9 k/uL (1.3-7.7); Neutrophils % (A) 76 %; Platelet Count 112 k/uL (150-450); RBC 2.93 m/uL (3.80-5.40); RDW 15.4 % (11.5-15.5); WBC 5.1 k/uL (3.8-10.6)
[2022-02-23 11:49] LABS: Glucose,Whole Blood 90 mg/dL (70-110)
--- NOTE | 2022-02-23 12:01 | PN ---
PROGRESS NOTE CHIEF COMPLAINT: Cardiorespiratory arrest. HISTORY OF PRESENT ILLNESS: This lady is slightly improved. She is still lethargic. Blood sugars are elevated. PHYSICAL EXAMINATION: LUNGS: Breath sounds are heard, although respirations are shallow with being off the ventilator. CARDIAC: Normal. ABDOMEN: Soft and nontender. IMPRESSION: 1. Status post cardiorespiratory arrest. 2. Anoxic brain injury. 3. Stage 5 chronic kidney disease. 4. Uncontrolled type 1 insulin-dependent diabetes mellitus. 5. Depression. PLAN: No change in program. The mother is applying for guardianship today. I will increase her insulin management. MMODL / IJN: [id number] /
[2022-02-23] MEDS: PANTOPRAZOLE 40 MG/10 ML VIAL IV SCH (15:51)
[2022-02-23] MEDS: KETOROLAC 15 MG/ML 1 ML VIAL IVP PRN (15:52)
[2022-02-23] MEDS: PRAZOSIN 1 MG CAP PO SCH ×2 (15:53→21:06)
[2022-02-23] MEDS: ESCITALOPRAM 20 MG TAB PO SCH (15:54)
[2022-02-23] MEDS: buPROPion SR 150 MG TABLET.ER PO SCH ×2 (15:54→21:06)
[2022-02-23] MEDS: ASPIRIN 81 MG PO SCH (15:54)
[2022-02-23] MEDS: SODIUM BICARBONATE TAB 650 MG TAB PO SCH ×3 (15:54→21:06)
[2022-02-23] MEDS: ATORVASTATIN 40 MG TAB PO SCH (15:55)
--- NOTE | 2022-02-23 16:10 | P.PN ---
Subjective Progress Note Date: 02/23/22 31-year-old female patient with multiple medical present comorbidities. The patient is known to have type 1 diabetes mellitus, and the patient has end-stage renal disease and the patient is on hemodialysis. Blood sugar control with that over the years and the patient has had previous hospitalizations for pneumonia, missed dialysis, she is for hyperkalemia and fluid overload and pulmonary edema. She has also also been treated for hypertensive emergencies. The patient brought into the emergency department today as the patient was feeling lightheaded and dizzy and very weak. The patient was due for dialysis today. She is undergoing dialysis today. The patient was found to be bradycardic by EMS and the patient's heart rate was in the low 40s. She was brought into the emergency and she had a blood pressure 75/45 with a pulse ox of 90% on room air. Heart rate subsequently slowed down further went down to the 30s and following that the patient was feeling anxious and jittery denies having any chest pain. Subsequently, she goes into a cardiac arrest, asystole and the patient was resuscitated with a downtime estimated to be around 10 minutes. The patient went into asystole and CPR was initiated immediately. She did require intubation. I was also told that this was a difficult intubation as the patient has copious amount of frothy colored material in the posterior oropharynx which was suctioned out. During the course of her treatment, the patient was given hyperkalemia cocktail. The blood work came back with a sodium level of 128, potassium level was 5 and the patient had a chloride of 89 with a bicarb of 20 with a 53 and a creatinine of 7.52. The patient had a flexor count of 4.4 hemoglobin 8.7 and a platelet count of 175. The blood gases on 100% FiO2 showed a pH of 7.36 with a pCO2 of 38 and pO2 of 52. This was the blood gases was done immediately after intubation. The patient is currently in the intensive care unit on assist-control mode of mechanical ventilation at the rate of 20, tidal volume of 400, FiO2 of 100% with a PEEP of 8. Current pulse ox is 96%. The patient is sedated with propofol which is running at 50 mcg/kg per minute. The patient was also started on pressors for hypotension. Norepinephrine is running at 0.18 mcg/kg per minute. Post intubation chest x-ray showed cardiomegaly and pulmonary edema. ET tube is in a good location. The patient also has a orogastric tube which is in good location. She is arousable and she response to stimulation and she is moving all 4 extremities without any limitation.. On her blood work, the patient has a white cell count of 4.1 with a hemoglobin of 8.7 and a platelet count of 175. Her proBNP level was 49,200. Troponin was negative. Most recent blood sugar is at 562. 02/20/2022, the patient is extubated. Her last dialysis session was yesterday and she had dialysis with ultrafiltration of 2 L and following that, the patient was taken off sedation and after some initial difficulties, she was able to do a brief smoked is breathing trial and following that I extubated the patient and currently she does still extubated on oxygen at 3 L nasal cannula. She is breathing comfortably. Postextubation, she became slightly anxious and her blood pressure went up. I had to put her back on Topamax for blood pressure control and currently she is off Her blood pressure is maintained adequately. She is slightly hypertensive. Her most recent BP is 159/75. She is on /Procardia XL 120 mg by mouth daily. She is also taken Minipress 5 mg by mouth twice a day. There has been some restriction in her blood pressure medications as the patient was taken off Coreg and clonidine because of bradycardia and off losartan because of difficulties with hyperkalemia. We are going to continue t he current antihypertensive medications for now. Her blood sugar is very brittle and she fluctuates between hyperglycemia and hypoglycemia. We opted to keep her only on sliding scale coverage. Another issue is ongoing diarrhea that she is encountered. The patient has a fecal management system in place and the stool for C. diff has been negative. She continues to have liquidy stool. ID evaluated the patient the patient was started on IV Zosyn as the patient was having episodes of fever earlier and currently she is afebrile. Cultures obtained during this current hospitalization showed beta hemolytic strep group C in the sputum. The most recent chest x-ray that was done this morning showed cardiomegaly. She has a water bottle sign consistent with pericardial effusion. The patient is known to have moderate-sized pericardial effusion. Her echocardiogram was done on 02/18/2022 and the patient has a preserved LV function, moderate pericardial effusion, no tamponade 02/21/2022, patient remains in the ICU, not in any distress, patient is on 3 L nasal cannula, she passed her swallow evaluation, and she is going to be started on regular diet/renal diet. Patient is receiving hemodialysis again today. As she remains oliguric. And hardly any urine output. Patient is alert, oriented 3, does not seem to be in any distress. She is afebrile, blood pressure is 104/50 for heart rate is 70 O2 sats at 96% on 3 L. Her IV fluids at KVO. Patient is off norepinephrine since last night. Overall the patient is making a dramatic recovery remains quite edematous and swollen. WBC count is 7.4 hemoglobin is 7.1 electrolytes are normal BUN is 64 creatinine 6.38 today alkaline phosphatase is elevated at 829 her AST is 78 ALT is 47 her bilirubin is 0.8. 02/22/22, patient remains in the ICU, she is on 4 L nasal cannula, does not seem to be in any distress. Patient dropped her hemoglobin since yesterday, patient underwent dialysis yesterday, and her hemoglobin today is 6.4. She will receive a unit of packed RBCs. She is not scheduled to have hemodialysis today, but she will have one tomorrow. Yesterday 2.5 L of fluids were removed. Patient had the sputum positive for Streptococcus, and she is now on Unasyn. Overall the patient seems to be doing well, remained generally weak, but not in any distress. WBC count is 4.6 hemoglobin is 6.4 no evidence of any active bleedin g. Electrolytes are normal BUN is 41 creatinine 4.06. Blood sugar is 260 The patient is seen today 02/23/2022 in follow-up on the selective care unit. She is currently resting comfortably in bed. Awake and alert in no acute distress. Receiving hemodialysis with a goal of liters to be removed. She is maintaining good O2 saturations in the 90s on 4 L/m per nasal cannula. She's been afebrile. Hemodynamically stable. White count 5.1. Hemoglobin 8.0. Platelets 112,000. Sodium 134. Potassium 3.0. BUN 77. Creatinine 5.69. Glucose 106. Calcium 9.0. She is continued on Unasyn. Objective - Vital Signs Vital signs: Vital Signs Temp 98 F 02/23/22 15:56 Pulse 81 02/23/22 15:56 Resp 18 02/23/22 15:56 BP 157/83 02/23/22 15:56 Pulse Ox 98 02/23/22 08:00 FiO2 4 02/20/22 08:00 Intake & Output 02/22/22 02/23/22 02/23/22 18:59 06:59 18:59 Intake Total 422 Output Total 1 2700 Balance 421 -2700 Weight 50 kg 64.5 kg Intake: IV 140 0.9 @ 20ml/hr 140 Blood Product 282 Rc Pheresis 2 As3 Unit 282 [id number] Output: Urine 1 Stool 100 Hemodialysis 2600 Other: Voiding Method Indwelling Catheter # Voids 0 # Bowel Movements 1 1 ABP, PAP, CO, CI - Last Documented Arterial Blood Pressure 141/52 - Exam GENERAL EXAM: Alert, pleasant 31-year-old female, on 4 L nasal cannula, comfortable in no apparent distress. HEAD: Normocephalic. EYES: Normal reaction of pupils, equal size. NOSE: Clear with pink turbinates. THROAT: No erythema or exudates. NECK: No masses, no JVD. CHEST: No chest wall deformity. LUNGS: Equal air entry with no crackles, wheeze, rhonchi or dullness. CVS: S1 and S2 normal with no audible murmur, regular rhythm. ABDOMEN: No hepatosplenomegaly, normal bowel sounds, no guarding or rigidity. SPINE: No scoliosis or deformity SKIN: No rashes CENTRAL NERVOUS SYSTEM: No focal deficits, tone is normal in all 4 extremities. EXTREMITIES: There is no peripheral edema. No clubbing, no cyanosis. Peripheral pulses are intact. - Labs CBC & Chem 7: 02/23/22 10:33 02/23/22 10:33 Labs: Abnormal Lab Results - Last 24 Hours (Table) 02/22/22 02/22/22 02/23/22 Range/Units 16:40 19:03 01:53 RBC (3.80-5.40) m/uL Hgb (11.4-16.0) gm/dL Hct (34.0-46.0) % Plt Count (150-450) k/uL Lymphocytes # (1.0-4.8) k/uL Sodium (137-145) mmol/L Potassium (3.5-5.1) mmol/L Chloride (98-107) mmol/L Carbon Dioxide (22-30) mmol/L BUN (7-17) mg/dL Creatinine (0.52-1.04) mg/dL Glucose (74-99) mg/dL POC Glucose (mg/dL) 298 H 121 H 160 H (70-110) mg/dL 02/23/22 02/23/22 02/23/22 Range/Units 04:23 08:00 10:33 RBC 2.93 L (3.80-5.40) m/uL Hgb 8.0 L (11.4-16.0) gm/dL Hct 24.2 L (34.0-46.0) % Plt Count 112 L (150-450) k/uL Lymphocytes # 0.5 L (1.0-4.8) k/uL Sodium (137-145) mmol/L Potassium (3.5-5.1) mmol/L Chloride (98-107) mmol/L Carbon Dioxide (22-30) mmol/L BUN (7-17) mg/dL Creatinine (0.52-1.04) mg/dL Glucose (74-99) mg/dL POC Glucose (mg/dL) 128 H 116 H (70-110) mg/dL 02/23/22 Range/Units 10:33 RBC (3.80-5.40) m/uL Hgb (11.4-16.0) gm/dL Hct (34.0-46.0) % Plt Count (150-450) k/uL Lymphocytes # (1.0-4.8) k/uL Sodium 134 L (137-145) mmol/L Potassium 3.0 L (3.5-5.1) mmol/L Chloride 92 L (98-107) mmol/L Carbon Dioxide 20 L (22-30) mmol/L BUN 77 H (7-17) mg/dL Creatinine 5.69 H (0.52-1.04) mg/dL Glucose 106 H (74-99) mg/dL POC Glucose (mg/dL) (70-110) mg/dL Microbiology - Last 24 Hours (Table) 02/18/22 10:54 Blood Culture - Preliminary Blood No Growth after 120 hours Assessment and Plan Assessment: Cardiac arrest associated with hyperkalemia and fluid overload as well as bradycardia leading to asystole, recovered Acute hypoxic respiratory failure secondary to above requiring intubation and mechanical ventilation, recovered and on 4 L nasal cannula Moderate pericardial effusion, without tamponade Acute pulmonary edema secondary to cardiac arrest Questionable seizure activity, being addressed by neurology End-stage renal disease on hemodialysis Type 1 diabetes, on insulin coverage scale. Chronic anemia of chronic disease History of CVA/TIA History of COVID-19 infection May 2021 Plan: The patient was seen and evaluated Currently stable from the pulmonary and critical care standpoint Continues to receive hemodialysis Remains on Unasyn We will see as needed I have personally seen and examined the patient, performed the documentation and the assessment and plan as written. Number of minutes spent on the visit: 10.
[2022-02-23] MEDS: SODIUM CHLORIDE 0.9% 1,000 ML IV SCH (16:20)
[2022-02-23 16:30] LABS: Glucose,Whole Blood 267 mg/dL (70-110)
[2022-02-23] MEDS ORDERED: KETOROLAC 15 MG/ML 1 ML VIAL IVP SCH (18:00)
[2022-02-23] MEDS ORDERED: POTASSIUM CHLORIDE ER 10 MEQ TAB.ER.PRT PO STA (18:01)
[2022-02-23 21:11] LABS: Glucose,Whole Blood 411 mg/dL (70-110)
[2022-02-23] MEDS: INSULIN DETEMIR (LEVEMIR) 100 UNIT/ML SYR SQ SCH (21:11)
[2022-02-24 00:08] LABS: Glucose,Whole Blood 421 mg/dL (70-110)
[2022-02-24] MEDS: INSULIN ASPART (NovoLOG) 100 UNIT/ML VIAL SQ SCH ×7 (00:08→23:43)
[2022-02-24 04:10] LABS: Glucose,Whole Blood 206 mg/dL (70-110)
[2022-02-24] MEDS: ACETAMINOPHEN TAB 325 MG TAB PO PRN ×2 (04:19→20:48)
[2022-02-24] MEDS: carvediloL 12.5 MG TAB PO SCH ×2 (06:23→17:24)
[2022-02-24] MEDS: ALPRAZolam 0.5 MG TAB PO PRN (06:23)
[2022-02-24 08:04] LABS: Glucose,Whole Blood 95 mg/dL (70-110)
[2022-02-24] MEDS: ASPIRIN 81 MG PO SCH (08:28)
[2022-02-24] MEDS: ESCITALOPRAM 20 MG TAB PO SCH (08:28)
[2022-02-24] MEDS: ATORVASTATIN 40 MG TAB PO SCH (08:28)
[2022-02-24] MEDS: SODIUM BICARBONATE TAB 650 MG TAB PO SCH ×3 (08:28→20:48)
[2022-02-24] MEDS: buPROPion SR 150 MG TABLET.ER PO SCH ×2 (08:29→20:49)
[2022-02-24] MEDS: PANTOPRAZOLE 40 MG/10 ML VIAL IV SCH (08:29)
[2022-02-24] MEDS: PRAZOSIN 1 MG CAP PO SCH ×2 (08:29→20:49)
[2022-02-24 08:41] LABS: Calcium 8.5 mg/dL (8.4-10.2); Phosphorus 3.8 mg/dL (2.5-4.5); Potassium 3.5 mmol/L (3.5-5.1)
--- NOTE | 2022-02-24 10:23 | P.PN ---
Subjective Progress Note Date: 02/22/22 Principal diagnosis: Fever/aspiration pneumonia Patient is a 31-year-old female with multiple comorbidities including end-stage renal disease on hemodialysis, Presented to hospital with lightheadedness disease patient did have a bradycardia arrhythmia and subsequently did have a cardiac arrest requiring intubation and did have a fever with left-sided infiltrate concerning for possible aspiration pneumonia. The patient has been extubated afternoon of 02/19/2022 on today's evaluation that Is 02/22/2022, the patient continues to be afebrile, the patient is breathing comfortably on 2 L nasal cannula oxygen, the patient denies chest pain she did have a cough but dry in nature, the patient did have some nausea but no vomiting no abdominal pain Objective - Vital Signs Vital signs: Vital Signs Temp 98.3 F 02/22/22 10:57 Pulse 78 02/22/22 11:00 Resp 39 H 02/22/22 11:00 BP 115/54 02/22/22 11:00 Pulse Ox 98 02/22/22 11:00 FiO2 4 02/20/22 08:00 Intake & Output 02/21/22 02/22/22 02/22/22 18:59 06:59 18:59 Intake Total 560 234.8 482 Output Total 2500 0 0 Balance -1940 234.8 482 Weight 50 kg 50 kg Intake: IV 260 220 200 0.9 @ 20ml/hr 260 220 100 Piperacillin-Tazobactam 3 100 .375 gm In Sodium Chloride 0.9% 100 ml @ 25 mls/hr IVPB Q12HR@0000, 1200 [facility] Rx#:[id number] Intake, IV Titration 14.8 Amount Clevidipine Butyrate 25 14.8 mg In Empty Bag 1 bag @ 1 MG/HR 2 mls/hr IV .Q24H [facility] Rx#:[id number] Blood Product 282 Rc Pheresis 2 As3 Unit 282 [id number] Hemodialysis 300 Output: Urine 0 0 0 Hemodialysis 2500 Other: # Bowel Movements 1 ABP, PAP, CO, CI - Last Documented Arterial Blood Pressure 120/48 - Exam GENERAL DESCRIPTION: Middle-aged female lying in bed in no distress RESPIRATORY SYSTEM: Unlabored breathing , decreased breath sounds at bases HEART: S1 S2 regular rate and rhythm , ABDOMEN: Soft , no tenderness EXTREMITIES: No edema feet - Labs CBC & Chem 7: 02/23/22 10:33 02/24/22 07:46 Labs: Abnormal Lab Results - Last 24 Hours (Table) 02/21/22 02/21/22 02/21/22 Range/Units 16:46 20:54 23:41 RBC (3.80-5.40) m/uL Hgb (11.4-16.0) gm/dL Hct (34.0-46.0) % RDW (11.5-15.5) % Plt Count (150-450) k/uL Lymphocytes # (1.0-4.8) k/uL Sodium (137-145) mmol/L Chloride (98-107) mmol/L Carbon Dioxide (22-30) mmol/L BUN (7-17) mg/dL Creatinine (0.52-1.04) mg/dL Glucose (74-99) mg/dL POC Glucose (mg/dL) 300 H 166 H 251 H (70-110) mg/dL AST (14-36) U/L ALT (4-34) U/L Alkaline Phosphatase (38-126) U/L Total Protein (6.3-8.2) g/dL Albumin (3.5-5.0) g/dL Crossmatch 02/22/22 02/22/22 02/22/22 Range/Units 00:11 04:00 04:00 RBC 2.33 L (3.80-5.40) m/uL Hgb 6.4 L* (11.4-16.0) gm/dL Hct 20.8 L (34.0-46.0) % RDW 15.7 H (11.5-15.5) % Plt Count 100 L (150-450) k/uL Lymphocytes # 0.3 L (1.0-4.8) k/uL Sodium 135 L (137-145) mmol/L Chloride 95 L (98-107) mmol/L Carbon Dioxide 16 L (22-30) mmol/L BUN 41 H (7-17) mg/dL Creatinine 4.06 H (0.52-1.04) mg/dL Glucose 268 H (74-99) mg/dL POC Glucose (mg/dL) 245 H (70-110) mg/dL AST 80 H (14-36) U/L ALT 60 H (4-34) U/L Alkaline Phosphatase 1032 H (38-126) U/L Total Protein 5.6 L (6.3-8.2) g/dL Albumin 3.4 L (3.5-5.0) g/dL Crossmatch 02/22/22 02/22/22 02/22/22 Range/Units 04:13 06:10 08:11 RBC (3.80-5.40) m/uL Hgb (11.4-16.0) gm/dL Hct (34.0-46.0) % RDW (11.5-15.5) % Plt Count (150-450) k/uL Lymphocytes # (1.0-4.8) k/uL Sodium (137-145) mmol/L Chloride (98-107) mmol/L Carbon Dioxide (22-30) mmol/L BUN (7-17) mg/dL Creatinine (0.52-1.04) mg/dL Glucose (74-99) mg/dL POC Glucose (mg/dL) 292 H 294 H (70-110) mg/dL AST (14-36) U/L ALT (4-34) U/L Alkaline Phosphatase (38-126) U/L Total Protein (6.3-8.2) g/dL Albumin (3.5-5.0) g/dL Crossmatch See Detail 02/22/22 02/22/22 Range/Units 11:55 11:55 RBC (3.80-5.40) m/uL Hgb (11.4-16.0) gm/dL Hct (34.0-46.0) % RDW (11.5-15.5) % Plt Count (150-450) k/uL Lymphocytes # (1.0-4.8) k/uL Sodium (137-145) mmol/L Chloride (98-107) mmol/L Carbon Dioxide (22-30) mmol/L BUN (7-17) mg/dL Creatinine (0.52-1.04) mg/dL Glucose (74-99) mg/dL POC Glucose (mg/dL) 362 H 369 H (70-110) mg/dL AST (14-36) U/L ALT (4-34) U/L Alkaline Phosphatase (38-126) U/L Total Protein (6.3-8.2) g/dL Albumin (3.5-5.0) g/dL Crossmatch Microbiology - Last 24 Hours (Table) 02/18/22 13:43 Stool Culture - Final Stool 02/18/22 10:54 Blood Culture - Preliminary Blood No Growth after 72 hours Assessment and Plan (1) Fever Current Visit: No Status: Acute Code(s): R50.9 - FEVER, UNSPECIFIED SNOMED Code(s): 543173435 Plan: 1patient with a fever of 102 F in this patient presenting to the hospital with weakness patient was noticed to be bradycardic and did have a cardiac arrest wi th significant amount of oropharyngeal secretion and left-sided infiltrate concerning for possible aspiration pneumonitis.Patient did have a negative COVID and influenza PCR 2the patient blood has been negative sputum has been finalized with beta- hemolytic group G strep 3patient slowly clinically improving and will continue with Unasyn and monitor clinical course closely Time with Patient: Less than 30
[2022-02-24 10:24] LABS: Glucose,Whole Blood 197 mg/dL (70-110)
--- NOTE | 2022-02-24 10:24 | P.PN ---
Subjective Progress Note Date: 02/23/22 Principal diagnosis: Fever/aspiration pneumonia Patient is a 31-year-old female with multiple comorbidities including end-stage renal disease on hemodialysis, Presented to hospital with lightheadedness disease patient did have a bradycardia arrhythmia and subsequently did have a cardiac arrest requiring intubation and did have a fever with left-sided infiltrate concerning for possible aspiration pneumonia. The patient has been extubated afternoon of 02/19/2022 on today's evaluation that Is 02/23/2022, the patient remains to be afebrile, the patient is breathing comfortably on 2 L nasal cannula oxygen, the patient denies chest pain she did have a dry cough but no worsening, the patient continued to have some nausea but no vomiting no abdominal pain Objective - Vital Signs Vital signs: Vital Signs Temp 97.9 F 02/23/22 08:00 Pulse 72 02/23/22 08:00 Resp 18 02/23/22 08:00 BP 122/67 02/23/22 08:00 Pulse Ox 98 02/23/22 08:00 FiO2 4 02/20/22 08:00 Intake & Output 02/22/22 02/23/22 02/23/22 18:59 06:59 18:59 Intake Total 422 Output Total 1 Balance 421 Weight 50 kg 64.5 kg Intake: IV 140 0.9 @ 20ml/hr 140 Blood Product 282 Rc Pheresis 2 As3 Unit 282 [id number] Output: Urine 1 Other: # Voids 0 # Bowel Movements 1 ABP, PAP, CO, CI - Last Documented Arterial Blood Pressure 141/52 - Exam GENERAL DESCRIPTION: Middle-aged female lying in bed in no distress RESPIRATORY SYSTEM: Unlabored breathing , decreased breath sounds at bases HEART: S1 S2 regular rate and rhythm , ABDOMEN: Soft , no tenderness EXTREMITIES: No edema feet - Labs CBC & Chem 7: 02/23/22 10:33 02/24/22 07:46 Labs: Abnormal Lab Results - Last 24 Hours (Table) 02/22/22 02/22/22 02/23/22 Range/Units 16:40 19:03 01:53 RBC (3.80-5.40) m/uL Hgb (11.4-16.0) gm/dL Hct (34.0-46.0) % Plt Count (150-450) k/uL Lymphocytes # (1.0-4.8) k/uL Sodium (137-145) mmol/L Potassium (3.5-5.1) mmol/L Chloride (98-107) mmol/L Carbon Dioxide (22-30) mmol/L BUN (7-17) mg/dL Creatinine (0.52-1.04) mg/dL Glucose (74-99) mg/dL POC Glucose (mg/dL) 298 H 121 H 160 H (70-110) mg/dL 02/23/22 02/23/22 02/23/22 Range/Units 04:23 08:00 10:33 RBC 2.93 L (3.80-5.40) m/uL Hgb 8.0 L (11.4-16.0) gm/dL Hct 24.2 L (34.0-46.0) % Plt Count 112 L (150-450) k/uL Lymphocytes # 0.5 L (1.0-4.8) k/uL Sodium (137-145) mmol/L Potassium (3.5-5.1) mmol/L Chloride (98-107) mmol/L Carbon Dioxide (22-30) mmol/L BUN (7-17) mg/dL Creatinine (0.52-1.04) mg/dL Glucose (74-99) mg/dL POC Glucose (mg/dL) 128 H 116 H (70-110) mg/dL 02/23/22 Range/Units 10:33 RBC (3.80-5.40) m/uL Hgb (11.4-16.0) gm/dL Hct (34.0-46.0) % Plt Count (150-450) k/uL Lymphocytes # (1.0-4.8) k/uL Sodium 134 L (137-145) mmol/L Potassium 3.0 L (3.5-5.1) mmol/L Chloride 92 L (98-107) mmol/L Carbon Dioxide 20 L (22-30) mmol/L BUN 77 H (7-17) mg/dL Creatinine 5.69 H (0.52-1.04) mg/dL Glucose 106 H (74-99) mg/dL POC Glucose (mg/dL) (70-110) mg/dL Microbiology - Last 24 Hours (Table) 02/18/22 10:54 Blood Culture - Preliminary Blood No Growth after 120 hours Assessment and Plan (1) Fever Current Visit: No Status: Acute Code(s): R50.9 - FEVER, UNSPECIFIED SNOMED Code(s): 997187673 Plan: 1patient with a fever of 102 F in this patient presenting to the hospital with weakness patient was noticed to be bradycardic and did have a cardiac arrest with significant amount of oropharyngeal secretion and left-sided infiltrate concerning for possible aspiration pneumonitis.Patient did have a negative COVID and influenza PCR 2the patient blood has been negative sputum has been finalized with beta- hemolytic group G strep 3patient did have some improvement in her respiratory status and will continue with Unasyn and monitor clinical course closely Time with Patient: Less than 30
[2022-02-24] MEDS ORDERED: POTASSIUM CHLORIDE ER 20 MEQ TAB.ER PO STA (10:53)
--- NOTE | 2022-02-24 10:55 | P.PN ---
Subjective Patient is seen in follow-up for end-stage renal disease. Blood pressure stable. Resting in bed. Denies chest pain or shortness of breath. No active complaints. Vital signs are stable. General: Resting in bed. HEENT: Head exam is unremarkable. On nasal cannula. LUNGS: Breath sounds decreased. HEART: Rate and Rhythm are regular. ABDOMEN: Soft, no distention. EXTREMITITES: No edema. Objective - Vital Signs Vital signs: Vital Signs Temp 97.6 F 02/24/22 08:00 Pulse 74 02/24/22 08:00 Resp 18 02/24/22 08:00 BP 158/81 02/24/22 08:00 Pulse Ox 95 02/24/22 04:00 FiO2 4 02/20/22 08:00 Intake & Output 02/23/22 02/24/22 02/24/22 18:59 06:59 18:59 Output Total 2700 Balance -2700 Weight 61 kg Output: Stool 100 Hemodialysis 2600 Other: Voiding Method Indwelling Catheter Indwelling Catheter # Bowel Movements 1 1 ABP, PAP, CO, CI - Last Documented Arterial Blood Pressure 141/52 - Labs CBC & Chem 7: 02/23/22 10:33 02/24/22 07:46 Labs: Abnormal Lab Results - Last 24 Hours (Table) 02/23/22 02/23/22 02/23/22 Range/Units 16:28 16:56 21:09 Sodium (137-145) mmol/L Potassium 3.1 L (3.5-5.1) mmol/L Chloride (98-107) mmol/L BUN (7-17) mg/dL Creatinine (0.52-1.04) mg/dL POC Glucose (mg/dL) 267 H 411 H (70-110) mg/dL 02/24/22 02/24/22 02/24/22 Range/Units 00:03 04:01 07:46 Sodium 136 L (137-145) mmol/L Potassium (3.5-5.1) mmol/L Chloride 95 L (98-107) mmol/L BUN 33 H (7-17) mg/dL Creatinine 3.32 H (0.52-1.04) mg/dL POC Glucose (mg/dL) 421 H 206 H (70-110) mg/dL 02/24/22 Range/Units 10:02 Sodium (137-145) mmol/L Potassium (3.5-5.1) mmol/L Chloride (98-107) mmol/L BUN (7-17) mg/dL Creatinine (0.52-1.04) mg/dL POC Glucose (mg/dL) 197 H (70-110) mg/dL Microbiology - Last 24 Hours (Table) 02/18/22 10:54 Blood Culture - Preliminary Blood No Growth after 120 hours Assessment and Plan Plan: Assessment: 1. End-stage renal disease maintained on hemodialysis on Monday schedule. 2. Status post cardiac arrest. Patient was hyperkalemic and bradycardic. 3. Hyperkalemia secondary to chronic kidney disease and hyperglycemia. Resolved. Subsequently required potassium replacement. 4. Metabolic acidosis secondary to chronic kidney disease. On oral bicarbonate. Improved postdialysis. 5. Volume overload. Improved with ultrafiltration. 6. Chronic diastolic CHF. 7. Pericardial effusion. Antihistone antibodies positive in the past. 8. Anemia of chronic kidney disease. Iron replete. On Aranesp. No active bleeding. Status post blood transfusion this admission. 9. Hypertension with chronic kidney disease. Currently controlled. Plan: Hemodialysis tomorrow. Avoid minoxidil and hydralazine due to pericardial effusion. Avoid medicines that can raise potassium levels including Acei/ARB and spironolactone. Life-threatening risks including cardiac arrest associated with hyperkalemia and severely uncontrolled blood sugars have been discussed with the patient multiple times.
[2022-02-24] MEDS: AMPICILLIN-SULBACTAM 3 GM in SODIUM CHLORIDE 0.9% 100 ML IVPB SCH ×2 (11:58→23:43)
[2022-02-24 12:03] LABS: Glucose,Whole Blood 312 mg/dL (70-110)
[2022-02-24] MEDS: SODIUM CHLORIDE 0.9% 1,000 ML IV SCH (14:06)
[2022-02-24 17:00] LABS: Glucose,Whole Blood 406 mg/dL (70-110)
[2022-02-24 20:13] LABS: Glucose,Whole Blood 451 mg/dL (70-110)
[2022-02-24] MEDS: INSULIN DETEMIR (LEVEMIR) 100 UNIT/ML SYR SQ SCH (20:50)
[2022-02-24 23:48] LABS: Glucose,Whole Blood 403 mg/dL (70-110)
[2022-02-25 03:56] LABS: Glucose,Whole Blood 45 mg/dL (70-110)
[2022-02-25 04:20] LABS: Glucose,Whole Blood 56 mg/dL (70-110)
[2022-02-25] MEDS: INSULIN ASPART (NovoLOG) 100 UNIT/ML VIAL SQ SCH ×6 (04:22→23:53)
[2022-02-25 04:47] LABS: Glucose,Whole Blood 79 mg/dL (70-110)
[2022-02-25] MEDS: carvediloL 12.5 MG TAB PO SCH ×2 (06:31→17:12)
[2022-02-25] MEDS: ATORVASTATIN 40 MG TAB PO SCH (08:50)
[2022-02-25] MEDS: SODIUM BICARBONATE TAB 650 MG TAB PO SCH ×3 (08:50→20:01)
[2022-02-25] MEDS: ASPIRIN 81 MG PO SCH (08:50)
[2022-02-25] MEDS: ESCITALOPRAM 20 MG TAB PO SCH (08:50)
[2022-02-25] MEDS: buPROPion SR 150 MG TABLET.ER PO SCH ×2 (08:51→20:01)
[2022-02-25] MEDS: PRAZOSIN 1 MG CAP PO SCH ×2 (08:51→20:01)
[2022-02-25] MEDS: PANTOPRAZOLE 40 MG/10 ML VIAL IV SCH (08:51)
--- NOTE | 2022-02-25 10:04 | P.PN ---
Subjective Patient is seen in follow-up for end-stage renal disease. Blood pressure stable. Resting in bed. Denies chest pain or shortness of breath. No active complaints. No changes overnight. Scheduled for dialysis today. Vital signs are stable. General: Resting in bed. HEENT: Head exam is unremarkable. On nasal cannula. LUNGS: Breath sounds decreased. HEART: Rate and Rhythm are regular. ABDOMEN: Soft, no distention. EXTREMITITES: No edema. Objective - Vital Signs Vital signs: Vital Signs Temp 97.2 F L 02/25/22 07:29 Pulse 79 02/25/22 07:29 Resp 16 02/25/22 07:29 BP 140/82 02/25/22 07:29 Pulse Ox 95 02/25/22 07:47 FiO2 4 02/20/22 08:00 Intake & Output 02/24/22 02/25/22 02/25/22 18:59 06:59 18:59 Intake Total 472 100 Output Total 100 Balance 372 100 Weight 61 kg 50.8 kg Intake: Oral 472 100 Output: Stool 100 Other: Voiding Method Indwelling Catheter # Voids 1 0 # Bowel Movements 2 ABP, PAP, CO, CI - Last Documented Arterial Blood Pressure 141/52 - Labs CBC & Chem 7: 02/23/22 10:33 02/24/22 07:46 Labs: Abnormal Lab Results - Last 24 Hours (Table) 02/24/22 02/24/22 02/24/22 Range/Units 10:02 12:01 16:54 POC Glucose (mg/dL) 197 H 312 H 406 H (70-110) mg/dL 02/24/22 02/24/22 02/25/22 Range/Units 20:11 23:36 03:54 POC Glucose (mg/dL) 451 H 403 H 45 L (70-110) mg/dL 02/25/22 Range/Units 04:19 POC Glucose (mg/dL) 56 L (70-110) mg/dL Microbiology - Last 24 Hours (Table) 02/18/22 10:54 Blood Culture - Final Blood No Growth after 144 hours Assessment and Plan Plan: Assessment: 1. End-stage renal disease maintained on hemodialysis on Monday schedule. 2. Status post cardiac arrest. Patient was hyperkalemic and bradycardic. 3. Hyperkalemia secondary to chronic kidney disease and hyperglycemia. Resolved. Subsequently required potassium replacement. 4. Metabolic acidosis secondary to chronic kidney disease. On oral bicarbonate. Improved postdialysis. 5. Volume overload. Improved with ultrafiltration. 6. Chronic diastolic CHF. 7. Pericardial effusion. Antihistone antibodies positive in the past. 8. Anemia of chronic kidney disease. Iron replete. On Aranesp. No active bleeding. Status post blood transfusion this admission. 9. Hypertension with chronic kidney disease. Currently controlled. Plan: Hemodialysis today. Avoid minoxidil and hydralazine due to pericardial effusion. Avoid medicines that can raise potassium levels including Acei/ARB and spironolactone. Life-threatening risks including cardiac arrest associated with hyperkalemia and severely uncontrolled blood sugars have been discussed with the patient multiple times.
[2022-02-25 11:54] LABS: Glucose,Whole Blood 339 mg/dL (70-110)
[2022-02-25] MEDS: AMPICILLIN-SULBACTAM 3 GM in SODIUM CHLORIDE 0.9% 100 ML IVPB SCH ×2 (12:36→23:50)
[2022-02-25] MEDS: ACETAMINOPHEN TAB 325 MG TAB PO PRN ×2 (12:41→17:18)
--- NOTE | 2022-02-25 13:56 | CDI ---
Documentation Clarification Form Date: 02/25/2022 01:01:56 PM From: Nguyen Bertrand RN CCDS Admit Date: 02/16/2022 12:46:00 PM Patient Name: Patsy Pizano Visit Number: [id number] Discharge Date: ATTENTION: The Clinical Documentation Specialists (CDI) and [facility] Coding Staff appreciate your assistance in clarifying documentation. Please respond to the clarification below the line at the bottom and electronically sign. The CDI & [facility] Coding staff will review the response and follow-up if needed. Please note: Queries are made part of the Legal Health Record. If you have any questions, please contact the author of this message via ITS. Dr. Roque Buckner Conflicting documentation has been found in the medical record. As attending physician, please provide clarification. Stage 5 chronic kidney disease, Medicine notes 02/18- & 02/24. End-stage renal dialysis, Nephrology consult & notes 02/17 02/25. History/Risk Factors: 31-year-old female presents to the ED was due for dialysis today (02/16) but called EMS for feeling lightheaded, dizzy and very weak. Patient was hypotensive and bradycardic. Medical history: DM 1, HTN and Renal disease. ED note, 02/16. Clinical Indicators: Nephrology consult, 02/17: End-stage renal disease on hemodialysis on a Monday, Monday and Monday schedule. 08/23/21: BUN 52 CR 6.50 GFR 7.8 11/24/21: BUN 43 CR 6.59 GFR 8 02/16/22: BUN 53 CR 7.52 GFR 7 Treatment: Nephrology consult see above. Dialysis. Oral bicarbonate Please clarify which diagnosis is most appropriate: [ ] End Stage Renal Disease [ ] Stage 5 Renal Disease (GFR <15) [ ] Other (please specify) [ ] Unable to determine (Template Last Revised: July 2020) MTDD
[2022-02-25] MEDS: SODIUM CHLORIDE 0.9% 1,000 ML IV SCH (14:17)
--- NOTE | 2022-02-25 15:34 | P.PN ---
Subjective Progress Note Date: 02/24/22 Principal diagnosis: Fever/aspiration pneumonia Patient is a 31-year-old female with multiple comorbidities including end-stage renal disease on hemodialysis, Presented to hospital with lightheadedness disease patient did have a bradycardia arrhythmia and subsequently did have a cardiac arrest requiring intubation and did have a fever with left-sided infiltrate concerning for possible aspiration pneumonia. The patient has been extubated afternoon of 02/19/2022 on today's evaluation that Is 02/24/2022, the patient continues to be afebrile, the patient is breathing comfortably on 2 L nasal cannula oxygen, the patient denies chest pain, the patient did have occasional dry cough patient did have some nausea but no vomiting no abdominal pain and diarrhea has improved Objective - Vital Signs Vital signs: Vital Signs Temp 97.6 F 02/24/22 08:00 Pulse 74 02/24/22 08:00 Resp 18 02/24/22 08:00 BP 158/81 02/24/22 08:00 Pulse Ox 95 02/24/22 04:00 FiO2 4 02/20/22 08:00 Intake & Output 02/23/22 02/24/22 02/24/22 18:59 06:59 18:59 Intake Total 236 Output Total 2700 Balance -2700 236 Weight 61 kg Intake: Oral 236 Output: Stool 100 Hemodialysis 2600 Other: Voiding Method Indwelling Catheter Indwelling Catheter # Bowel Movements 1 1 ABP, PAP, CO, CI - Last Documented Arterial Blood Pressure 141/52 - Exam GENERAL DESCRIPTION: Middle-aged female lying in bed in no distress RESPIRATORY SYSTEM: Unlabored breathing , decreased breath sounds at bases HEART: S1 S2 regular rate and rhythm , ABDOMEN: Soft , no tenderness EXTREMITIES: No edema feet - Labs CBC & Chem 7: 02/23/22 10:33 02/24/22 07:46 Labs: Abnormal Lab Results - Last 24 Hours (Table) 02/23/22 02/23/22 02/23/22 Range/Units 16:28 16:56 21:09 Sodium (137-145) mmol/L Potassium 3.1 L (3.5-5.1) mmol/L Chloride (98-107) mmol/L BUN (7-17) mg/dL Creatinine (0.52-1.04) mg/dL POC Glucose (mg/dL) 267 H 411 H (70-110) mg/dL 02/24/22 02/24/22 02/24/22 Range/Units 00:03 04:01 07:46 Sodium 136 L (137-145) mmol/L Potassium (3.5-5.1) mmol/L Chloride 95 L (98-107) mmol/L BUN 33 H (7-17) mg/dL Creatinine 3.32 H (0.52-1.04) mg/dL POC Glucose (mg/dL) 421 H 206 H (70-110) mg/dL 02/24/22 02/24/22 Range/Units 10:02 12:01 Sodium (137-145) mmol/L Potassium (3.5-5.1) mmol/L Chloride (98-107) mmol/L BUN (7-17) mg/dL Creatinine (0.52-1.04) mg/dL POC Glucose (mg/dL) 197 H 312 H (70-110) mg/dL Microbiology - Last 24 Hours (Table) 02/18/22 10:54 Blood Culture - Final Blood No Growth after 144 hours Assessment and Plan (1) Fever Current Visit: No Status: Acute Code(s): R50.9 - FEVER, UNSPECIFIED SNOMED Code(s): 274334618 Plan: 1patient with a fever of 102 F in this patient presenting to the hospital with weakness patient was noticed to be bradycardic and did have a cardiac arrest with significant amount of oropharyngeal secretion and left-sided infiltrate concerning for possible aspiration pneumonitis.Patient did have a negative COVID and influenza PCR 2the patient blood has been negative sputum has been finalized with beta- hemolytic group G strep 3patient [place] improvement and is currently being treated with Unasyn and monitor clinical course closely Time with Patient: Less than 30
--- NOTE | 2022-02-25 15:35 | P.PN ---
Subjective Progress Note Date: 02/25/22 Principal diagnosis: Fever/aspiration pneumonia Patient is a 31-year-old female with multiple comorbidities including end-stage renal disease on hemodialysis, Presented to hospital with lightheadedness disease patient did have a bradycardia arrhythmia and subsequently did have a cardiac arrest requiring intubation and did have a fever with left-sided infiltrate concerning for possible aspiration pneumonia. The patient has been extubated afternoon of 02/19/2022 on today's evaluation that Is 02/25/2022, the patient denies any fever or any chills, the patient is breathing comfortably on room air, the patient denies chest pain, the patient did have occasional dry cough patient did have improvement in her nausea no vomiting no abdominal pain no diarrhea Objective - Vital Signs Vital signs: Vital Signs Temp 97.2 F L 02/25/22 07:29 Pulse 65 02/25/22 14:00 Resp 18 02/25/22 14:00 BP 177/99 02/25/22 12:33 Pulse Ox 95 02/25/22 12:33 FiO2 4 02/20/22 08:00 Intake & Output 02/24/22 02/25/22 02/25/22 18:59 06:59 18:59 Intake Total 472 100 Output Total 100 200 Balance 372 -100 Weight 61 kg 50.8 kg Intake: Oral 472 100 Output: Stool 100 200 Other: Voiding Method Indwelling Catheter Toilet # Voids 1 0 1 # Bowel Movements 2 2 ABP, PAP, CO, CI - Last Documented Arterial Blood Pressure 141/52 - Exam GENERAL DESCRIPTION: Middle-aged female lying in bed in no distress RESPIRATORY SYSTEM: Unlabored breathing , decreased breath sounds at bases HEART: S1 S2 regular rate and rhythm , ABDOMEN: Soft , no tenderness EXTREMITIES: No edema feet - Labs CBC & Chem 7: 02/23/22 10:33 02/24/22 07:46 Labs: Abnormal Lab Results - Last 24 Hours (Table) 02/24/22 02/24/22 02/24/22 Range/Units 16:54 20:11 23:36 POC Glucose (mg/dL) 406 H 451 H 403 H (70-110) mg/dL 02/25/22 02/25/22 02/25/22 Range/Units 03:54 04:19 11:52 POC Glucose (mg/dL) 45 L 56 L 339 H (70-110) mg/dL Microbiology - Last 24 Hours (Table) 02/18/22 10:54 Blood Culture - Final Blood No Growth after 144 hours Assessment and Plan (1) Fever Current Visit: No Status: Acute Code(s): R50.9 - FEVER, UNSPECIFIED SNOMED Code(s): 941574250 Plan: 1patient with a fever of 102 F in this patient presenting to the hospital with weakness patient was noticed to be bradycardic and did have a cardiac arrest with significant amount of oropharyngeal secretion and left-sided infiltrate concerning for possible aspiration pneumonitis.Patient did have a negative COVID and influenza PCR 2the patient blood has been negative sputum has been finalized with beta- hemolytic group G strep 3patient has shown overall clinical improvement, currently on Unasyn that'll be transitioning short course of oral Augmentin on discharge Time with Patient: Less than 30
[2022-02-25 17:00] LABS: Glucose,Whole Blood 482 mg/dL (70-110)
[2022-02-25 19:50] LABS: Glucose,Whole Blood 425 mg/dL (70-110)
--- NOTE | 2022-02-25 20:08 | PN ---
PROGRESS NOTE CHIEF COMPLAINT: Cardiorespiratory arrest and anoxic brain injury. HISTORY OF PRESENT ILLNESS: This lady is doing a little bit better each day and becoming a little bit more alert. She continues with dialysis. Blood sugars are fairly well controlled. PHYSICAL EXAMINATION: GENERAL: She is semi-alert. She is appropriate when she is aroused. HEAD, EARS, EYES, NOSE AND MOUTH: Normal. CHEST: Clear. CARDIAC: Normal. ABDOMEN: Soft. IMPRESSION: 1. Cardiorespiratory arrest with anoxic brain injury-improving. 2. Stage 5 chronic kidney disease. 3. Uncontrolled type 1 insulin-dependent diabetes mellitus. 4. Blindness. PLAN: Continue with supportive care. Her mother is seeking guardianship. MMODL / IJN: [id number] /
--- NOTE | 2022-02-25 20:22 | PN ---
PROGRESS NOTE CHIEF COMPLAINT: Status post cardiorespiratory arrest. HISTORY OF PRESENT ILLNESS: This lady continues to improve. She is not complaining of any pain or shortness of breath. PHYSICAL EXAMINATION: CHEST: Clear. CARDIAC: Normal. ABDOMEN: Soft. IMPRESSION: 1. Status post cardiorespiratory arrest. 2. Stage 5 chronic kidney disease. 3. Uncontrolled diabetes. 4. Blindness. 5. Depression. PLAN: Mother is working on guardianship and she can be discharged once facility is identified that can manage her care. MMODL / IJN: [id number] /
[2022-02-25] MEDS: INSULIN DETEMIR (LEVEMIR) 100 UNIT/ML SYR SQ SCH (21:53)
[2022-02-25 23:36] LABS: Glucose,Whole Blood 149 mg/dL (70-110)
[2022-02-26] MEDS: ACETAMINOPHEN TAB 325 MG TAB PO PRN ×2 (03:30→22:19)
[2022-02-26 03:33] LABS: Glucose,Whole Blood 54 mg/dL (70-110)
[2022-02-26] MEDS: INSULIN ASPART (NovoLOG) 100 UNIT/ML VIAL SQ SCH ×6 (03:33→23:56)
[2022-02-26 03:50] LABS: Glucose,Whole Blood 54 mg/dL (70-110)
[2022-02-26 04:03] LABS: Glucose,Whole Blood 70 mg/dL (70-110)
--- NOTE | 2022-02-26 05:11 | PN ---
PROGRESS NOTE CHIEF COMPLAINT: Renal failure, cardiorespiratory arrest. HISTORY OF PRESENT ILLNESS: This lady is doing a bit better. Her mentation is clearing. She is oriented and alert. PHYSICAL EXAMINATION: GENERAL: She remains weak. CHEST: Clear. CARDIAC: Unchanged. ABDOMEN: Soft, nontender. IMPRESSION: 1. Status post cardiorespiratory arrest. 2. Stage 5 chronic kidney disease. 3. Uncontrolled type 1 insulin-dependent diabetes mellitus. 4. Blindness. PLAN: Continue to stabilize pending discharge, which is being arranged by her mother. MMODL / IJN: [id number] /
[2022-02-26] MEDS: carvediloL 12.5 MG TAB PO SCH ×2 (05:43→15:15)
[2022-02-26 08:10] LABS: Glucose,Whole Blood 207 mg/dL (70-110)
[2022-02-26] MEDS: ASPIRIN 81 MG PO SCH (08:33)
[2022-02-26] MEDS: SODIUM BICARBONATE TAB 650 MG TAB PO SCH (08:33)
[2022-02-26] MEDS: ATORVASTATIN 40 MG TAB PO SCH (08:33)
[2022-02-26] MEDS: PANTOPRAZOLE 40 MG/10 ML VIAL IV SCH (08:33)
[2022-02-26] MEDS: buPROPion SR 150 MG TABLET.ER PO SCH ×2 (08:34→22:16)
[2022-02-26] MEDS: ESCITALOPRAM 20 MG TAB PO SCH (08:34)
[2022-02-26] MEDS: PRAZOSIN 1 MG CAP PO SCH ×2 (08:34→22:16)
[2022-02-26] MEDS: KETOROLAC 15 MG/ML 1 ML VIAL IVP PRN (08:47)
[2022-02-26] MEDS: SODIUM CHLORIDE 0.9% 1,000 ML IV SCH (10:16)
--- NOTE | 2022-02-26 11:15 | P.PN ---
Subjective Patient is seen for follow-up for end-stage renal disease. Patient has been extubated and transferred out to regular floor. This morning she is complaining of pain and anxiety. Patient has chest discomfort. Blood pressure was elevated at 225/108 this morning and patient received all her by mouth medications. Repeat blood pressure is not checked yet. Patient is status post dialysis yesterday. She tolerated her treatment well Objective - Vital Signs Vital signs: Vital Signs Temp 97.8 F 02/26/22 08:00 Pulse 89 02/26/22 08:00 Resp 18 02/26/22 08:00 BP 225/108 02/26/22 08:00 Pulse Ox 98 02/26/22 08:00 FiO2 4 02/20/22 08:00 Intake & Output 02/25/22 02/26/22 02/26/22 18:59 06:59 18:59 Intake Total 700 Output Total 200 Balance 500 Weight 49.6 kg Intake: Oral 700 Output: Stool 200 Other: Voiding Method Toilet Toilet # Voids 1 1 # Bowel Movements 2 2 ABP, PAP, CO, CI - Last Documented Arterial Blood Pressure 141/52 - Exam Awake, comfortable Alert oriented 3 No acute distress Examination of the heart S1 and S2 Examination lungs decreased breath sounds at the bases Abdomen is soft nontender Examination lower extremity shows no edema 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 - Labs CBC & Chem 7: 02/23/22 10:33 02/24/22 07:46 Labs: Abnormal Lab Results - Last 24 Hours (Table) 02/25/22 02/25/22 02/25/22 Range/Units 11:52 16:45 19:46 POC Glucose (mg/dL) 339 H 482 H 425 H (70-110) mg/dL 02/25/22 02/26/22 02/26/22 Range/Units 23:34 03:32 03:47 POC Glucose (mg/dL) 149 H 54 L 54 L (70-110) mg/dL 02/26/22 Range/Units 08:08 POC Glucose (mg/dL) 207 H (70-110) mg/dL Assessment and Plan Assessment: 1. End-stage renal disease on hemodialysis on a Monday schedule as outpatient 2. Volume overload currently improved 3. Status post cardiac arrest possibly related to hyperkalemia however patient has had a much higher potassium levels previously in the 70 range without any EKG findings. 4. Hyperkalemia associated with end-stage renal disease, currently improved post dialysis 5. History of uncontrolled hypertension requiring multiple medications. Patient needs to be maintained off of hydralazine and minoxidil due to underlying pericardial effusion and positive antihistone antibodies. She also needs to be off of CHANDA inhibitor's and angiotensin receptor blockers secondary to severe hyperkalemia. 6. Brittle diabetes Plan: Next hemodialysis on 02/28/2022 Increase Coreg to 25 mg twice a day Decrease sodium bicarb May need to DC Toradol if blood pressure remains elevated as it can worsen the hypertension.
[2022-02-26 11:59] LABS: Glucose,Whole Blood 303 mg/dL (70-110)
[2022-02-26] MEDS: AMPICILLIN-SULBACTAM 3 GM in SODIUM CHLORIDE 0.9% 100 ML IVPB SCH (12:26)
[2022-02-26] MEDS ORDERED: carvediloL 12.5 MG TAB PO STA (14:37)
[2022-02-26 15:22] LABS: Glucose,Whole Blood 284 mg/dL (70-110)
[2022-02-26] MEDS ORDERED: cloNIDine HCL 0.1 MG TAB PO SCH (16:00)
[2022-02-26 20:08] LABS: Glucose,Whole Blood 396 mg/dL (70-110)
[2022-02-26] MEDS: INSULIN DETEMIR (LEVEMIR) 100 UNIT/ML SYR SQ SCH (22:15)
[2022-02-26] MEDS: cloNIDine HCL 0.2 MG TAB PO SCH (22:16)
[2022-02-26 23:50] LABS: Glucose,Whole Blood 579 mg/dL (70-110)
[2022-02-26 23:50] LABS: Glucose,Whole Blood 563 mg/dL (70-110)
[2022-02-27] MEDS: AMPICILLIN-SULBACTAM 3 GM in SODIUM CHLORIDE 0.9% 100 ML IVPB SCH ×3 (00:39→23:54)
[2022-02-27 00:59] LABS: Glucose,Whole Blood 466 mg/dL (70-110)
[2022-02-27] MEDS ORDERED: ENALAPRILAT 1.25 MG/ML 1 ML VIAL IVP STA (01:05)
[2022-02-27] MEDS ORDERED: INSULIN ASPART (NovoLOG) 100 UNIT/ML VIAL SQ ONE (01:06)
[2022-02-27 02:11] LABS: Glucose,Whole Blood 253 mg/dL (70-110)
[2022-02-27 03:48] LABS: Glucose,Whole Blood 39 mg/dL (70-110)
[2022-02-27] MEDS: INSULIN ASPART (NovoLOG) 100 UNIT/ML VIAL SQ SCH ×6 (03:52→23:49)
[2022-02-27 04:02] LABS: Glucose,Whole Blood 48 mg/dL (70-110)
[2022-02-27 04:16] LABS: Glucose,Whole Blood 54 mg/dL (70-110)
[2022-02-27 04:31] LABS: Glucose,Whole Blood 117 mg/dL (70-110)
[2022-02-27] MEDS: carvediloL 12.5 MG TAB PO SCH ×2 (05:38→15:23)
[2022-02-27 08:40] LABS: Glucose,Whole Blood 275 mg/dL (70-110)
[2022-02-27] MEDS: buPROPion SR 150 MG TABLET.ER PO SCH ×2 (09:00→20:04)
[2022-02-27] MEDS: cloNIDine HCL 0.2 MG TAB PO SCH ×3 (09:00→20:04)
[2022-02-27] MEDS: SODIUM BICARBONATE TAB 650 MG TAB PO SCH (09:00)
[2022-02-27] MEDS: PRAZOSIN 1 MG CAP PO SCH ×2 (09:00→20:04)
[2022-02-27] MEDS: ATORVASTATIN 40 MG TAB PO SCH (09:01)
[2022-02-27] MEDS: ASPIRIN 81 MG PO SCH (09:01)
[2022-02-27] MEDS: ESCITALOPRAM 20 MG TAB PO SCH (09:01)
[2022-02-27] MEDS: PANTOPRAZOLE 40 MG/10 ML VIAL IV SCH (09:01)
[2022-02-27] MEDS: DARBEPOETIN ALFA 40 MCG/0.4 ML SYRINGE SQ SCH (09:09)
--- NOTE | 2022-02-27 09:56 | P.PN ---
Subjective Patient is seen for follow-up for end-stage renal disease. Patient's blood pressure has been difficult to control. Clonidine was started yesterday and it is improved today. Toradol was discontinued due to uncontrolled hypertension Objective - Vital Signs Vital signs: Vital Signs Temp 97.9 F 02/27/22 08:00 Pulse 81 02/27/22 08:00 Resp 18 02/27/22 08:00 BP 161/81 02/27/22 08:00 Pulse Ox 95 02/27/22 08:00 FiO2 4 02/20/22 08:00 Intake & Output 02/26/22 02/27/22 02/27/22 18:59 06:59 18:59 Intake Total 417 Balance 417 Weight 51.6 kg Intake: Oral 417 Other: Voiding Method Toilet Toilet # Voids 0 # Bowel Movements 0 ABP, PAP, CO, CI - Last Documented Arterial Blood Pressure 141/52 - Exam Awake, comfortable Alert oriented 3 No acute distress Examination of the heart S1 and S2 Examination lungs decreased breath sounds at the bases Abdomen is soft nontender Examination lower extremity shows no edema 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 - Labs CBC & Chem 7: 02/23/22 10:33 02/24/22 07:46 Labs: Abnormal Lab Results - Last 24 Hours (Table) 02/26/22 02/26/22 02/26/22 Range/Units 11:57 15:19 19:47 POC Glucose (mg/dL) 303 H 284 H 396 H (70-110) mg/dL 02/26/22 02/26/22 02/27/22 Range/Units 23:45 23:48 00:57 POC Glucose (mg/dL) 579 H 563 H 466 H (70-110) mg/dL 02/27/22 02/27/22 02/27/22 Range/Units 02:10 03:46 04:00 POC Glucose (mg/dL) 253 H 39 L 48 L (70-110) mg/dL 02/27/22 02/27/22 02/27/22 Range/Units 04:15 04:30 08:38 POC Glucose (mg/dL) 54 L 117 H 275 H (70-110) mg/dL Assessment and Plan Assessment: 1. End-stage renal disease on hemodialysis on a Monday schedule as outpatient 2. Volume overload currently improved 3. Status post cardiac arrest possibly related to hyperkalemia however patient has had a much higher potassium levels previously in the 70 range without any EKG findings. 4. Hyperkalemia associated with end-stage renal disease, currently improved post dialysis 5. History of uncontrolled hypertension requiring multiple medications. Patient needs to be maintained off of hydralazine and minoxidil due to underlying pericardial effusion and positive antihistone antibodies. She also needs to be off of CHANDA inhibitor's and angiotensin receptor blockers secondary to severe hyperkalemia. 6. Brittle diabetes Plan: Continue current antihypertensive medications Hemodialysis in a.m. Okay to use Toradol once a day since blood pressure is better controlled.
[2022-02-27 12:24] LABS: Glucose,Whole Blood 257 mg/dL (70-110)
[2022-02-27] MEDS: SODIUM CHLORIDE 0.9% 1,000 ML IV SCH (13:46)
[2022-02-27] MEDS: guaiFENesin-DM 100-10MG/5ML 10 ML CUP PO PRN (15:23)
[2022-02-27 16:48] LABS: Glucose,Whole Blood 277 mg/dL (70-110)
[2022-02-27 20:03] LABS: Glucose,Whole Blood 220 mg/dL (70-110)
[2022-02-27] MEDS: INSULIN DETEMIR (LEVEMIR) 100 UNIT/ML SYR SQ SCH (20:03)
[2022-02-27] MEDS: LABETALOL 200 MG TAB PO SCH (20:05)
[2022-02-27] MEDS: ACETAMINOPHEN TAB 325 MG TAB PO PRN (20:16)
[2022-02-27 23:50] LABS: Glucose,Whole Blood 107 mg/dL (70-110)
[2022-02-28] MEDS: guaiFENesin-DM 100-10MG/5ML 10 ML CUP PO PRN
[2022-02-28 03:52] LABS: Glucose,Whole Blood 96 mg/dL (70-110)
[2022-02-28] MEDS: INSULIN ASPART (NovoLOG) 100 UNIT/ML VIAL SQ SCH ×5 (03:57→21:34)
[2022-02-28] MEDS: carvediloL 12.5 MG TAB PO SCH ×2 (04:54→17:29)
[2022-02-28 08:02] LABS: Glucose,Whole Blood 246 mg/dL (70-110)
[2022-02-28] MEDS: PANTOPRAZOLE 40 MG/10 ML VIAL IV SCH (08:52)
[2022-02-28] MEDS: ASPIRIN 81 MG PO SCH (08:52)
[2022-02-28] MEDS: buPROPion SR 150 MG TABLET.ER PO SCH ×2 (08:53→21:33)
[2022-02-28] MEDS: SODIUM BICARBONATE TAB 650 MG TAB PO SCH (08:53)
[2022-02-28] MEDS: cloNIDine HCL 0.2 MG TAB PO SCH ×3 (08:53→21:32)
[2022-02-28] MEDS: ATORVASTATIN 40 MG TAB PO SCH (08:53)
[2022-02-28] MEDS: LABETALOL 200 MG TAB PO SCH ×2 (08:53→21:33)
[2022-02-28] MEDS: ESCITALOPRAM 20 MG TAB PO SCH (08:53)
[2022-02-28] MEDS: PRAZOSIN 1 MG CAP PO SCH ×2 (08:54→21:33)
[2022-02-28] MEDS ORDERED: diphenhydrAMINE 50 MG/ML 1 ML VIAL IVP STA (10:49)
--- NOTE | 2022-02-28 10:59 | P.PN ---
Subjective Patient is seen for follow-up for end-stage renal disease. Patient's blood pressure has been difficult to control. Clonidine was started over the weekend and it is improved today. Toradol was discontinued due to uncontrolled hypertension Scheduled for hemodialysis today. Complaining of pain left chest Objective - Vital Signs Vital signs: Vital Signs Temp 98.0 F 02/28/22 08:00 Pulse 78 02/28/22 08:00 Resp 18 02/28/22 08:00 BP 188/96 02/28/22 08:00 Pulse Ox 95 02/28/22 08:00 FiO2 4 02/20/22 08:00 Intake & Output 02/27/22 02/28/22 02/28/22 18:59 06:59 18:59 Intake Total 480 Balance 480 Weight 52.8 kg Intake: Oral 480 Other: Voiding Method Toilet Toilet # Voids 0 # Bowel Movements 1 ABP, PAP, CO, CI - Last Documented Arterial Blood Pressure 141/52 - Exam Awake, comfortable Alert oriented 3 No acute distress Examination of the heart S1 and S2 Examination lungs decreased breath sounds at the bases Abdomen is soft nontender Examination lower extremity shows no edema DOPE FIRER 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 - Labs CBC & Chem 7: 02/23/22 10:33 02/24/22 07:46 Labs: Abnormal Lab Results - Last 24 Hours (Table) 02/27/22 02/27/22 02/27/22 Range/Units 12:16 16:45 19:52 POC Glucose (mg/dL) 257 H 277 H 220 H (70-110) mg/dL 02/28/22 Range/Units 08:01 POC Glucose (mg/dL) 246 H (70-110) mg/dL Assessment and Plan Assessment: 1. End-stage renal disease on hemodialysis on a Monday schedule as outpatient 2. Volume overload currently improved 3. Status post cardiac arrest possibly related to hyperkalemia however patient has had a much higher potassium levels previously in the 70 range without any EK G findings. 4. Hyperkalemia associated with end-stage renal disease, currently improved post dialysis 5. History of uncontrolled hypertension requiring multiple medications. Patient needs to be maintained off of hydralazine and minoxidil due to underlying pericardial effusion and positive antihistone antibodies. She also needs to be off of CHANDA inhibitor's and angiotensin receptor blockers secondary to severe hyperkalemia. 6. Brittle diabetes Plan: hemodialysis today with goal UF 3-4 L as tolerated Evaluate for extra treatment tomorrow
[2022-02-28 11:48] LABS: Glucose,Whole Blood 180 mg/dL (70-110)
[2022-02-28] MEDS: SODIUM CHLORIDE 0.9% 1,000 ML IV SCH (12:38)
[2022-02-28] MEDS: AMPICILLIN-SULBACTAM 3 GM in SODIUM CHLORIDE 0.9% 100 ML IVPB SCH (14:34)
[2022-02-28] MEDS: KETOROLAC 15 MG/ML 1 ML VIAL IVP PRN (14:34)
[2022-02-28 16:25] LABS: Glucose,Whole Blood 409 mg/dL (70-110)
--- NOTE | 2022-02-28 19:14 | PN ---
PROGRESS NOTE CHIEF COMPLAINT: Cardiorespiratory arrest and renal failure. HISTORY OF PRESENT ILLNESS: This lady is doing reasonably well, but her blood pressure and blood sugars are fluctuating wildly. She is asymptomatic. PHYSICAL EXAMINATION: CARDIAC: Normal. CHEST: Clear. ABDOMEN: Soft and nontender. IMPRESSION: 1. Status post cardiorespiratory arrest. 2. Stage 5 chronic kidney disease. 3. Uncontrolled type 1 insulin-dependent diabetes mellitus. PLAN: Slowly progress activity and continue dialysis until she can be discharged. MMODL / IJN: [id number] /
--- NOTE | 2022-02-28 19:42 | PN ---
PROGRESS NOTE CHIEF COMPLAINT: Cardiac arrest and renal failure. HISTORY OF PRESENT ILLNESS: This lady continues to improve, and she is back to normal neurologically. She is complaining of some chest discomfort. She has had no shortness of breath. She is otherwise doing well. Blood pressure is fluctuating, as is her blood sugar. PHYSICAL EXAMINATION: GENERAL: She remains pale. CHEST: Clear. CARDIAC: Normal. ABDOMEN: Soft and nontender. IMPRESSION: 1. Status post cardiorespiratory arrest. 2. Renal failure. 3. Type 1 diabetes. 4. Chest pain, probably in the chest wall. PLAN: Continue with dialysis in attempts to control her blood pressure as well as her blood sugars. Her mother has obtained guardianship and will be looking for discharge location. MMODL / IJN: [id number] /
[2022-02-28 19:52] LABS: Glucose,Whole Blood 419 mg/dL (70-110)
[2022-02-28] MEDS ORDERED: INSULIN ASPART (NovoLOG) 100 UNIT/ML VIAL SQ ONE (20:54)
[2022-02-28] MEDS ORDERED: INSULIN DETEMIR (LEVEMIR) 100 UNIT/ML SYR SQ SCH (21:00)
[2022-02-28 23:45] LABS: Glucose,Whole Blood 248 mg/dL (70-110)
[2022-03-01] MEDS: INSULIN ASPART (NovoLOG) 100 UNIT/ML VIAL SQ SCH ×5 (00:10→17:21)
[2022-03-01] MEDS: AMPICILLIN-SULBACTAM 3 GM in SODIUM CHLORIDE 0.9% 100 ML IVPB SCH ×2 (00:11→13:07)
[2022-03-01] MEDS: KETOROLAC 15 MG/ML 1 ML VIAL IVP PRN (00:12)
[2022-03-01 03:44] LABS: Glucose,Whole Blood 36 mg/dL (70-110)
[2022-03-01] MEDS: DEXTROSE 50% SYRINGE 50 ML IVP PRN ×2 (03:44→06:34)
[2022-03-01 03:56] LABS: Glucose,Whole Blood 185 mg/dL (70-110)
[2022-03-01 06:31] LABS: Glucose,Whole Blood 33 mg/dL (70-110)
[2022-03-01] MEDS: carvediloL 12.5 MG TAB PO SCH ×2 (06:34→17:21)
[2022-03-01 06:48] LABS: Glucose,Whole Blood 170 mg/dL (70-110)
[2022-03-01 08:05] LABS: Glucose,Whole Blood 76 mg/dL (70-110)
[2022-03-01 08:44] VITALS: RESP 18
--- NOTE | 2022-03-01 09:08 | P.PN ---
Subjective Progress Note Date: 02/26/22 Principal diagnosis: Fever/aspiration pneumonia Patient is a 31-year-old female with multiple comorbidities including end-stage renal disease on hemodialysis, Presented to hospital with lightheadedness disease patient did have a bradycardia arrhythmia and subsequently did have a cardiac arrest requiring intubation and did have a fever with left-sided infiltrate concerning for possible aspiration pneumonia. The patient has been extubated afternoon of 02/19/2022 on today's evaluation that Is 02/26/2022, the patient remains to be afebrile, the patient is breathing comfortably on room air, the patient denies chest pain, the patient did have occasional dry cough patient denies nausea no vomiting no abdominal pain no diarrhea Objective - Vital Signs Vital signs: Vital Signs Temp 97.8 F 02/26/22 08:00 Pulse 89 02/26/22 08:00 Resp 18 02/26/22 08:00 BP 225/108 02/26/22 08:00 Pulse Ox 98 02/26/22 08:00 FiO2 4 02/20/22 08:00 Intake & Output 02/25/22 02/26/22 02/26/22 18:59 06:59 18:59 Intake Total 700 Output Total 200 Balance 500 Weight 49.6 kg Intake: Oral 700 Output: Stool 200 Other: Voiding Method Toilet Toilet # Voids 1 1 # Bowel Movements 2 2 ABP, PAP, CO, CI - Last Documented Arterial Blood Pressure 141/52 - Exam GENERAL DESCRIPTION: Middle-aged female lying in bed in no distress RESPIRATORY SYSTEM: Unlabored breathing , decreased breath sounds at bases HEART: S1 S2 regular rate and rhythm , ABDOMEN: Soft , no tenderness EXTREMITIES: No edema feet - Labs CBC & Chem 7: 02/23/22 10:33 02/24/22 07:46 Labs: Abnormal Lab Results - Last 24 Hours (Table) 02/25/22 02/25/22 02/25/22 Range/Units 11:52 16:45 19:46 POC Glucose (mg/dL) 339 H 482 H 425 H (70-110) mg/dL 02/25/22 02/26/22 02/26/22 Range/Units 23:34 03:32 03:47 POC Glucose (mg/dL) 149 H 54 L 54 L (70-110) mg/dL 02/26/22 Range/Units 08:08 POC Glucose (mg/dL) 207 H (70-110) mg/dL Assessment and Plan (1) Fever Current Visit: No Status: Acute Code(s): R50.9 - FEVER, UNSPECIFIED SNOMED Code(s): 551900436 Plan: 1patient with a fever of 102 F in this patient presenting to the hospital with weakness patient was noticed to be bradycardic and did have a cardiac arrest with significant amount of oropharyngeal secretion and left-sided infiltrate concerning for possible aspiration pneumonitis.Patient did have a negative COVID and influenza PCR 2the patient blood has been negative sputum has been finalized with beta-hemol ytic group G strep 3patient has shown overall clinical improvement, patient to continue with Unasyn and monitor clinical course closely Time with Patient: Less than 30
[2022-03-01 09:10] LABS: Glucose,Whole Blood 35 mg/dL (70-110)
--- NOTE | 2022-03-01 09:11 | P.PN ---
Subjective Progress Note Date: 02/27/22 Principal diagnosis: Fever/aspiration pneumonia Patient is a 31-year-old female with multiple comorbidities including end-stage renal disease on hemodialysis, Presented to hospital with lightheadedness disease patient did have a bradycardia arrhythmia and subsequently did have a cardiac arrest requiring intubation and did have a fever with left-sided infiltrate concerning for possible aspiration pneumonia. The patient has been extubated afternoon of 02/19/2022 on today's evaluation that Is 02/27/2022, the patient continues to be afebrile, the patient is breathing comfortably on room air, the patient denies chest pain, the patient denies any cough or sputum production, no abdominal pain no diarrhea Objective - Vital Signs Vital signs: Vital Signs Temp 98 F 02/27/22 11:27 Pulse 73 02/27/22 11:27 Resp 18 02/27/22 14:00 BP 177/93 02/27/22 11:27 Pulse Ox 98 02/27/22 11:27 FiO2 4 02/20/22 08:00 Intake & Output 02/26/22 02/27/22 02/27/22 18:59 06:59 18:59 Intake Total 417 240 Balance 417 240 Weight 51.6 kg Intake: Oral 417 240 Other: Voiding Method Toilet Toilet # Voids 0 # Bowel Movements 0 ABP, PAP, CO, CI - Last Documented Arterial Blood Pressure 141/52 - Exam GENERAL DESCRIPTION: Middle-aged female lying in bed in no distress RESPIRATORY SYSTEM: Unlabored breathing , decreased breath sounds at bases HEART: S1 S2 regular rate and rhythm , ABDOMEN: Soft , no tenderness EXTREMITIES: No edema feet - Labs CBC & Chem 7: 02/23/22 10:33 02/24/22 07:46 Labs: Abnormal Lab Results - Last 24 Hours (Table) 02/26/22 02/26/22 02/26/22 Range/Units 15:19 19:47 23:45 POC Glucose (mg/dL) 284 H 396 H 579 H (70-110) mg/dL 02/26/22 02/27/22 02/27/22 Range/Units 23:48 00:57 02:10 POC Glucose (mg/dL) 563 H 466 H 253 H (70-110) mg/dL 02/27/22 02/27/22 02/27/22 Range/Units 03:46 04:00 04:15 POC Glucose (mg/dL) 39 L 48 L 54 L (70-110) mg/dL 02/27/22 02/27/22 02/27/22 Range/Units 04:30 08:38 12:16 POC Glucose (mg/dL) 117 H 275 H 257 H (70-110) mg/dL Assessment and Plan (1) Fever Current Visit: No Status: Acute Code(s): R50.9 - FEVER, UNSPECIFIED SNOMED Code(s): 573115431 Plan: 1patient with a fever of 102 F in this patient presenting to the hospital with weakness patient was noticed to be bradycardic and did have a cardiac arrest with significant amount of oropharyngeal secretion and left-sided infiltrate concerning for possible aspiration pneumonitis.Patient did have a negative COVID and influenza PCR 2the patient blood has been negative sputum has been finalized with beta-hemo lytic group G strep 3patient to continue with Unasyn in view of clinical response and monitor clini ritesh course closely Time with Patient: Less than 30
--- NOTE | 2022-03-01 09:13 | P.PN ---
Subjective Progress Note Date: 02/28/22 Principal diagnosis: Fever/aspiration pneumonia Patient is a 31-year-old female with multiple comorbidities including end-stage renal disease on hemodialysis, Presented to hospital with lightheadedness disease patient did have a bradycardia arrhythmia and subsequently did have a cardiac arrest requiring intubation and did have a fever with left-sided infiltrate concerning for possible aspiration pneumonia. The patient has been extubated afternoon of 02/19/2022 on today's evaluation that Is 02/28/2022, the patient remains to be afebrile, the patient is breathing comfortably on room air, the patient denies chest pain, the patient did have occasional cough which is dryand no further nausea no vomiting no abdominal pain no diarrhea Objective - Vital Signs Vital signs: Vital Signs Temp 98.0 F 02/28/22 08:00 Pulse 78 02/28/22 08:00 Resp 18 02/28/22 08:00 BP 188/96 02/28/22 08:00 Pulse Ox 95 02/28/22 08:00 FiO2 4 02/20/22 08:00 Intake & Output 02/27/22 02/28/22 02/28/22 18:59 06:59 18:59 Intake Total 480 Balance 480 Weight 52.8 kg 52.8 kg Intake: Oral 480 Other: Voiding Method Toilet Toilet # Voids 0 # Bowel Movements 1 ABP, PAP, CO, CI - Last Documented Arterial Blood Pressure 141/52 - Exam GENERAL DESCRIPTION: Middle-aged female lying in bed in no distress RESPIRATORY SYSTEM: Unlabored breathing , decreased breath sounds at bases HEART: S1 S2 regular rate and rhythm , ABDOMEN: Soft , no tenderness EXTREMITIES: No edema feet - Labs CBC & Chem 7: 02/23/22 10:33 02/24/22 07:46 Labs: Abnormal Lab Results - Last 24 Hours (Table) 02/27/22 02/27/22 02/28/22 Range/Units 16:45 19:52 08:01 POC Glucose (mg/dL) 277 H 220 H 246 H (70-110) mg/dL 02/28/22 Range/Units 11:47 POC Glucose (mg/dL) 180 H (70-110) mg/dL Assessment and Plan (1) Fever Current Visit: No Status: Acute Code(s): R50.9 - FEVER, UNSPECIFIED SNOMED Code(s): 737758190 Plan: 1patient with a fever of 102 F in this patient presenting to the hospital with weakness patient was noticed to be bradycardic and did have a cardiac arrest with significant amount of oropharyngeal secretion and left-sided infiltrate concerning for possible aspiration pneumonitis.Patient did have a negative COVID and influenza PCR 2the patient blood has been negative sputum has been finalized with beta- hemolytic group G strep 3patient has showed Improvement and has received adequate antibiotic therapy for underlying pneumonia. Unasyn will be discontinued on discharge Time with Patient: Less than 30
[2022-03-01] MEDS: ASPIRIN 81 MG PO SCH (09:29)
[2022-03-01] MEDS: cloNIDine HCL 0.2 MG TAB PO SCH ×2 (09:29→17:21)
[2022-03-01] MEDS: PANTOPRAZOLE 40 MG/10 ML VIAL IV SCH (09:29)
[2022-03-01] MEDS: ESCITALOPRAM 20 MG TAB PO SCH (09:30)
[2022-03-01] MEDS: SODIUM BICARBONATE TAB 650 MG TAB PO SCH (09:30)
[2022-03-01] MEDS: ATORVASTATIN 40 MG TAB PO SCH (09:30)
[2022-03-01] MEDS: buPROPion SR 150 MG TABLET.ER PO SCH (09:32)
[2022-03-01] MEDS: PRAZOSIN 1 MG CAP PO SCH (09:32)
[2022-03-01] MEDS: LABETALOL 200 MG TAB PO SCH (09:32)
[2022-03-01 09:37] LABS: Glucose,Whole Blood 80 mg/dL (70-110)
[2022-03-01 11:59] VITALS: TEMP 98
[2022-03-01 12:10] LABS: Glucose,Whole Blood 242 mg/dL (70-110)
--- NOTE | 2022-03-01 13:06 | P.PN ---
Subjective Patient is seen for follow-up for end-stage renal disease. Patient's blood pressure has been difficult to control. Clonidine was started over the weekend and it is improved today. Toradol was discontinued due to uncontrolled hypertension Status post hemodialysis yesterday with 3 L of ultrafiltration. Blood pressure remains on the higher side. Patient will be dialyzed again today mostly for ultrafiltration to help with the blood pressure. Objective - Vital Signs Vital signs: Vital Signs Temp 98.0 F 03/01/22 11:57 Pulse 75 03/01/22 11:57 Resp 18 03/01/22 11:57 BP 171/82 03/01/22 11:57 Pulse Ox 92 L 03/01/22 08:39 FiO2 4 02/20/22 08:00 Intake & Output 02/28/22 03/01/22 03/01/22 18:59 06:59 18:59 Intake Total 220 680 Output Total 3000 Balance -2780 680 Weight 52.8 kg Intake: IV 100 0.9 @ 20ml/hr 100 Intake, IV Titration 100 100 Amount Ampicillin-Sulbactam 3 gm 100 100 In Sodium Chloride 0.9% 100 ml @ 200 mls/hr IVPB Q12H [facility] Rx#:[id number] Sodium Chloride 0.9% 1, 0 000 ml @ 20 mls/hr IV . Q24H [facility] Rx#:[id number] Oral 120 480 Output: Hemodialysis 3000 Other: Voiding Method Toilet Toilet Toilet ABP, PAP, CO, CI - Last Documented Arterial Blood Pressure 141/52 - Exam Awake, comfortable Alert oriented 3 No acute distress Examination of the heart S1 and S2 Examination lungs decreased breath sounds at the bases Abdomen is soft nontender Examination lower extremity shows no edema ROLL SKINNER 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 - Labs CBC & Chem 7: 02/23/22 10:33 02/24/22 07:46 Labs: Abnormal Lab Results - Last 24 Hours (Table) 02/28/22 02/28/22 02/28/22 Range/Units 16:23 19:49 23:43 POC Glucose (mg/dL) 409 H 419 H 248 H (70-110) mg/dL 03/01/22 03/01/22 03/01/22 Range/Units 03:40 03:55 06:29 POC Glucose (mg/dL) 36 L 185 H 33 L (70-110) mg/dL 03/01/22 03/01/22 03/01/22 Range/Units 06:47 09:09 12:08 POC Glucose (mg/dL) 170 H 35 L 242 H (70-110) mg/dL Assessment and Plan Assessment: 1. End-stage renal disease on hemodialysis on a Monday schedule as outpatient 2. Volume overload currently improved 3. Status post cardiac arrest possibly related to hyperkalemia however patient has had a much higher potassium levels previously in the 70 range without any EKG findings. 4. Hyperkalemia associated with end-stage renal disease, currently improved post dialysis 5. History of uncontrolled hypertension requiring multiple medications. Patient needs to be maintained off of hydralazine and minoxidil due to underlying pericardial effusion and positive antihistone antibodies. She also needs to be off of CHANDA inhibitor's and angiotensin receptor blockers secondary to severe hyperkalemia. 6. Brittle diabetes Plan: Repeat hemodialysis today with UF of about 2-2-1/2 L as tolerated. Patient can be discharged from nephrology standpoint post hemodialysis today. She is advised that she has been started on new blood pressure medications and should not take the hydralazine and minoxidil on lisinopril.
[2022-03-01] MEDS: SODIUM CHLORIDE 0.9% 1,000 ML IV SCH (13:08)
[2022-03-01 16:08] LABS: Glucose,Whole Blood 167 mg/dL (70-110)
[2022-03-01 17:49] VITALS: PULSE 86
[2022-03-01 18:05] VITALS: BP 150/76
--- NOTE | 2022-03-02 18:31 | DS ---
DISCHARGE SUMMARY CHIEF COMPLAINT: Cardiorespiratory arrest. HISTORY OF PRESENT ILLNESS AND PHYSICAL EXAMINATION: Details of this lady's history and physical can be found in the initial workup. COURSE IN THE HOSPITAL: After admission, she was placed on bedrest and placed on ventilator. She remained unresponsive and comatose for several days and then started to gradually wake up. She eventually was able to be extubated, and even though she remained lethargic, her neurologic status continued to improve, as did her cognitive function, and she essentially got back to her pre-arrest neurologic state. Her mother decided to take control of the situation and applied for guardianship and started looking for an adult foster care facility that could provide a better care than she was getting at home. She was still involved in this effort, but it was felt that the patient could be discharged back home with her father until suitable housing could be found. She will go home on her regular diet and activity and usual medicines. We will follow her in the office and try to maintain control of her blood sugars if it is possible. She will continue dialysis. FINAL DIAGNOSES: 1. Cardiorespiratory arrest. 2. Anoxic brain injury. 3. Stage 5 chronic kidney disease. 4. Uncontrolled type 1 insulin-dependent diabetes mellitus. 5. Depression. OPERATIONS: None. CONSULTATIONS: Nephrology and Pulmonology. CONDITION: She is improved. MMODL / IJN: [id number] /
--- NOTE | 2022-03-02 19:37 | PN ---
PROGRESS NOTE CHIEF COMPLAINT: Cardiorespiratory arrest. HISTORY OF PRESENT ILLNESS: This lady is doing well. Her mentation is completely cleared. Her blood sugars are improved. Her mother is working on a discharge plan and location. PHYSICAL EXAMINATION: GENERAL: She is slightly pale. She is awake and alert. CHEST: Clear. CARDIAC: Normal. ABDOMEN: Soft and nontender. IMPRESSION: 1. Cardiorespiratory arrest. 2. Anoxic brain injury. 3. Stage 5 chronic kidney disease. 4. Uncontrolled type 1 insulin-dependent diabetes mellitus. PLAN: Continue with supportive care and dialysis while waiting for discharge plan. MMODL / IJN: [id number] /
--- NOTE | 2022-03-04 06:49 | CDI ---
Documentation Clarification Form Date: 03/04/2022 06:47:00 AM From: Juliette Garcia Admit Date: 02/16/2022 12:46:00 PM Patient Name: Patsy Pizano Visit Number: [id number] Discharge Date: 03/01/2022 06:16:00 PM ATTENTION: The Clinical Documentation Specialists (CDI) and [facility] Coding Staff appreciate your assistance in clarifying documentation. Please respond to the clarification below the line at the bottom and electronically sign. The CDI & [facility] Coding staff will review the response and follow-up if needed. Please note: Queries are made part of the Legal Health Record. If you have any questions, please contact the author of this message via ITS. Dr. Adriana Ordonez, There is documentation of acute pulmonary edema in the ED Note & your consult. Additional clarification is requested. History/Risk Factors: HTN with Chronic diastolic CHF & renal failure Clinical Indicators: Per consult, acute hypoxic respiratory failure, intubated on mechanical ventilation, CXR's consistent with pulmonary edema. Treatment: Emergent dialysis, IV Lasix 40 mg stat x 4 Can you please clarify the cause of acute pulmonary edema? [ x ] Acute on chronic diastolic CHF [ ] Acute pulmonary edema unrelated to heart failure [ ] Other, please specify [ ] Unable to determine MTDD
--- NOTE | 2022-03-05 03:51 | MISC ---
MISCELLANOUS REPORT Stage 5 chronic kidney disease. MMODL / IJN: [id number] /
== END 2022-03-01 18:16 | disposition home health service (06) | DRG 640 ==
LOC: EC 10:45 → 2SICU 12:46 → EEVIPCON 12:46 → 2SICU 12:56 → 3SCARD 02-22 14:35
PROVIDERS: ADMIT Family Medicine; ATTEND Family Medicine
PROC: 5A12012 Performance of Cardiac Output, Single, Manual (ICD-10-PCS; principal; 2022-02-16)
PROC: 0BH17EZ Insertion of Endotracheal Airway into Trachea, Via Natural or Artificial Opening (ICD-10-PCS; principal; 2022-02-16)
PROC: 5A1945Z Respiratory Ventilation, 24-96 Consecutive Hours (ICD-10-PCS; principal; 2022-02-16)
PROC: 3E033XZ Introduction of Vasopressor into Peripheral Vein, Percutaneous Approach (ICD-10-PCS; principal; 2022-02-16)
PROC: 4A133B1 Monitoring of Arterial Pressure, Peripheral, Percutaneous Approach (ICD-10-PCS; 2022-02-16)
PROC: 4A133J1 Monitoring of Arterial Pulse, Peripheral, Percutaneous Approach (ICD-10-PCS; 2022-02-16)
PROC: 03HY32Z Insertion of Monitoring Device into Upper Artery, Percutaneous Approach (ICD-10-PCS; 2022-02-16)
PROC: 0D9670Z Drainage of Stomach with Drainage Device, Via Natural or Artificial Opening (ICD-10-PCS; 2022-02-16)
PROC: 5A1D70Z Performance of Urinary Filtration, Intermittent, Less than 6 Hours Per Day (ICD-10-PCS; 2022-02-16)
PROC: 30233N1 Transfusion of Nonautologous Red Blood Cells into Peripheral Vein, Percutaneous Approach (ICD-10-PCS; 2022-02-22)
DX: E87.5 Hyperkalemia (principal); I46.8 Cardiac arrest due to other underlying condition; J96.01 Acute respiratory failure with hypoxia; J69.0 Pneumonitis due to inhalation of food and vomit; I50.33 Acute on chronic diastolic (congestive) heart failure; J15.4 Pneumonia due to other streptococci; I31.39 Other pericardial effusion (noninflammatory); I13.2 Hypertensive heart and chronic kidney disease with heart failure and with stage 5 chronic kidney disease, or end stage renal disease; G93.1 Anoxic brain damage, not elsewhere classified; G91.0 Communicating hydrocephalus; N18.5 Chronic kidney disease, stage 5; E10.319 Type 1 diabetes mellitus with unspecified diabetic retinopathy without macular edema; D63.1 Anemia in chronic kidney disease; E10.40 Type 1 diabetes mellitus with diabetic neuropathy, unspecified; E10.36 Type 1 diabetes mellitus with diabetic cataract; I95.9 Hypotension, unspecified; I27.20 Pulmonary hypertension, unspecified; E10.649 Type 1 diabetes mellitus with hypoglycemia without coma; R56.9 Unspecified convulsions; E10.22 Type 1 diabetes mellitus with diabetic chronic kidney disease; E10.65 Type 1 diabetes mellitus with hyperglycemia; Z99.2 Dependence on renal dialysis; Z91.15 Patient's noncompliance with renal dialysis; Z79.4 Long term (current) use of insulin; Z20.822 Contact with and (suspected) exposure to COVID-19; Z28.310 Unvaccinated for COVID-19; E87.20 Acidosis, unspecified; T88.4XXA Failed or difficult intubation, initial encounter; R00.1 Bradycardia, unspecified; H54.8 Legal blindness, as defined in USA; T50.906A Underdosing of unspecified drugs, medicaments and biological substances, initial encounter; H26.9 Unspecified cataract; Z91.128 Patient's intentional underdosing of medication regimen for other reason; G25.81 Restless legs syndrome; F32.A Depression, unspecified; F41.9 Anxiety disorder, unspecified; R19.7 Diarrhea, unspecified; Z79.82 Long term (current) use of aspirin; Z79.899 Other long term (current) drug therapy; Z86.16 Personal history of COVID-19; Z86.73 Personal history of transient ischemic attack (TIA), and cerebral infarction without residual deficits; Z91.013 Allergy to seafood; Z88.8 Allergy status to other drugs, medicaments and biological substances; Z91.018 Allergy to other foods
CPT/HCPCS: 36415; 36600; 70450; 71045; 80048; 80053; 82272; 82550; 82728; 82805; 83036; 83540; 83550; 83735; 83880; 84100; 84132; 84484; 85025; 85027; 86850; 86900; 86901; 86920; 87040; 87045; 87046; 87070; 87205; 87324; 87502; 87635; 90935; 93005; 93306; 94002; 94003; 94640; 94760; 95822; 96365; 96366; 96375; 96376; 99291

== ENCOUNTER 2022-03-04 16:01 | Emergency (ER) | payer MEDICARE, OTHER ==
[2022-03-04 16:08] VITALS: TEMP 98.3
[2022-03-04 16:36] LABS: Anisocytosis Slight; Basophils # (A) 0.1 k/uL (0-0.2); Basophils % (A) 2 %; Eosinophils # (A) 0.2 k/uL (0-0.7); Eosinophils % (A) 4 %; HCT 22.6 % (34.0-46.0); HGB 7.6 gm/dL (11.4-16.0); Hypochromasia Slight; Lymphocytes # (A) 0.9 k/uL (1.0-4.8); Lymphocytes % (A) 23 %; MCH 28.5 pg (25.0-35.0); MCHC 33.5 g/dL (31.0-37.0); MCV 85.1 fL (80.0-100.0); Mean Platelet Volume 8.8; Monocytes # (A) 0.3 k/uL (0-1.0); Monocytes % (A) 6 %; Neutrophils # (A) 2.5 k/uL (1.3-7.7); Neutrophils % (A) 63 %; RBC 2.66 m/uL (3.80-5.40); RDW 17.1 % (11.5-15.5)
[2022-03-04] MEDS ORDERED: SODIUM CHLORIDE 0.9% 1,000 ML IV STA (16:36)
[2022-03-04] MEDS ORDERED: PANTOPRAZOLE 40 MG/10 ML VIAL IVP STA (16:45)
[2022-03-04] MEDS ORDERED: MORPHINE SULFATE 4 MG/ML SYRINGE IVP STA (16:46)
[2022-03-04 16:47] LABS: Platelet Count 355 k/uL (150-450)
--- NOTE | 2022-03-04 16:49 | ED ---
General Adult HPI - General Chief complaint: Recheck/Abnormal Lab/Rx Stated complaint: Low hemoglobin Time Seen by Provider: 03/04/22 16:35 Source: patient, family, RN notes reviewed, old records reviewed Mode of arrival: ambulatory Limitations: no limitations - History of Present Illness Initial comments: Patient is a pleasant 31-year-old female presenting to the emergency department with concerns for anemia. Patient did have dialysis today with reported hemoglobin of 6.7. Patient has had increasing fatigue and general weakness over the past 2-3 days. Patient was just discharged from the hospital. Patient was in the hospital for low blood pressure and heart rate and did have cardiac arrest with CPR and rib fracture. Patient has discomfort from the rib fracture and request pain medication for this. Patient denies any rectal bleeding or b lack tarry stools. No vomiting. Patient has had mild bloody nose. - Related Data Home Medications Medication Instructions Recorded Confirmed Ergocalciferol (Vitamin D2) 1,250 mcg PO Q30D 04/03/21 03/04/22 [Drisdol (50,000 Iu)] Isosorbide Mononitrate ER [Imdur] 30 mg PO HS 04/03/21 03/04/22 carvediloL [Coreg] 25 mg PO BID 04/03/21 03/04/22 Escitalopram [Lexapro] 20 mg PO DAILY 04/17/21 03/04/22 Albuterol Inhaler [Ventolin Hfa 2 puff INHALATION RT-QID PRN 12/06/21 03/04/22 Inhaler] Aspirin 81 mg PO DAILY 12/06/21 03/04/22 Methoxy Peg-Epoetin Beta [Mircera] 200 mcg IVPB Q14D 12/06/21 03/04/22 NIFEdipine XL [Procardia XL] 120 mg PO DAILY 12/06/21 03/04/22 Insulin Aspart [NovoLOG Flexpen] See Protocol SQ TID-W/MEALS 12/21/21 03/04/22 Insulin Detemir (Levemir) [Levemir] 13 unit SQ HS 12/21/21 03/04/22 Melatonin [Melatonin Dissolving 10 mg PO HS 12/21/21 03/04/22 Tablet] hydrALAZINE HCL [Apresoline] 100 mg PO TID 12/21/21 03/04/22 rOPINIRole HCL [Requip] 1 mg PO HS 12/21/21 03/04/22 Lidocaine-Prilocaine Cream [Emla 1 applic TOPICAL MOWEFR PRN 02/09/22 03/04/22 Cream 2.5%/2.5%] Losartan Potassium 100 mg PO DAILY 02/09/22 03/04/22 Prazosin [Minipress] 5 mg PO BID 02/09/22 03/04/22 buPROPion SR [Wellbutrin SR] 150 mg PO BID 02/09/22 03/04/22 Previous Rx's Medication Instructions Recorded Acetaminophen Tab [Tylenol] 650 mg PO Q6HR PRN #30 tab 04/09/21 Glucagon Emergency Kit 1 mg IM ONCE PRN #1 kit 06/15/21 Cyanocobalamin [Vitamin B-12] 1,000 mcg PO DAILY #60 tab 09/06/21 Atorvastatin [Lipitor] 40 mg PO DAILY 30 Days #30 tab 10/13/21 Calcium Acetate [PhosLo] 667 mg PO TID-W/MEALS 30 Days #90 10/13/21 tab Pantoprazole Sodium [Protonix] 20 mg PO BID #30 tab 10/15/21 LORazepam [Ativan] 1 mg PO TID PRN #90 tab 12/09/21 hydrOXYzine HCL [Atarax] 25 mg PO TID PRN #90 tab 12/09/21 cloNIDine HCL [Catapres] 0.3 mg PO TID PRN #90 tab 12/23/21 Allergies Allergy/AdvReac Type Severity Reaction Status Date / Time Fish Containing Products Allergy Rash/Hives Verified 03/04/22 18:10 [Fish] iodine Allergy Anaphylaxis Verified 03/04/22 18:10 Review of Systems ROS Statement: Those systems with pertinent positive or pertinent negative responses have been documented in the HPI. ROS Other: All systems not noted in ROS Statement are negative. Constitutional: Denies: fever Eyes: Denies: eye pain ENT: Denies: ear pain Respiratory: Denies: cough Cardiovascular: Denies: chest pain Endocrine: Reports: fatigue Gastrointestinal: Denies: abdominal pain, hematemesis, melena, hematochezia Genitourinary: Denies: dysuria, hematuria Skin: Denies: rash Neurological: Denies: headache Past Medical History Past Medical History: CVA/TIA, Diabetes Mellitus, Dialysis, Eye Disorder, Hypertension, Renal Disease Additional Past Medical History / Comment(s): ESRD with hemodialysis M/W/F, IDDM type 1, DKA, neuropathy bilateral legs/feet, diabetic retinopathy/legally blind, RLS, gastritis, severe hypokalemia, fluid retention in abdomin/legs. History of Any Multi-Drug Resistant Organisms: None Reported Past Surgical History: Appendectomy, Section, Cholecystectomy Additional Past Surgical History / Comment(s): fistula left arm Past Anesthesia/Blood Transfusion Reactions: No Reported Reaction Past Psychological History: Anxiety, Depression Smoking Status: Never smoker Past Alcohol Use History: None Reported Past Drug Use History: None Reported - Past Family History Mother Family Medical History: Cancer, Hypertension Additional Family Medical History / Comment(s): Thyroid cancer, bipolar Father Family Medical History: Seizure Disorder Additional Family Medical History / Comment(s): Epilepsy General Exam Limitations: no limitations General appearance: alert, in no apparent distress Head exam: Present: normocephalic Eye exam: Present: normal appearance Neck exam: Present: normal inspection Respiratory exam: Present: normal lung sounds bilaterally Cardiovascular Exam: Present: regular rate, normal rhythm GI/Abdominal exam: Present: soft. Absent: tenderness Extremities exam: Present: normal inspection Neurological exam: Present: alert Psychiatric exam: Present: normal affect, normal mood Skin exam: Present: normal color Course Vital Signs 03/04/22 03/04/22 03/04/22 16:05 17:00 18:23 Temperature 98.3 F Pulse Rate 97 95 93 Respiratory 20 16 16 Rate Blood Pressure 202/94 210/111 223/120 O2 Sat by Pulse 95 98 94 L Oximetry 03/04/22 19:24 Temperature Pulse Rate 93 Respiratory 16 Rate Blood Pressure 223/114 O2 Sat by Pulse 98 Oximetry EKG Findings - EKG Comments: EKG Findings:: Sinus rhythm rate 95. NV 179. QRS 95. QT 391. QTC 444. Normal axis. Lateral ST depression. High QRS voltage. Medical Decision Making - Medical Decision Making Patient remains hypertensive. Patient states she has not taken her medication since this morning. Patient states she is not taking her nifedipine today. Patient has refused blood pressure medications except for her nifedipine. Case was discussed with Dr. Buckner who is familiar with this patient. He states if patient and mother who is present and comfortable with discharge home that is okay with him. They are again reevaluated and still both mother and patient requests discharge. They are made aware of hypertension and concerns regarding this. They state patient normally does get hypertensive like this, especially after dialysis. In addition patient has not taken her medications. - Lab Data Result diagrams: 03/04/22 16:20 03/04/22 16:20 Lab Results 03/04/22 03/04/22 03/04/22 Range/Units 16:20 16:20 16:20 WBC 4.0 (3.8-10.6) k/uL RBC 2.66 L (3.80-5.40) m/uL Hgb 7.6 L (11.4-16.0) gm/dL Hct 22.6 L (34.0-46.0) % MCV 85.1 (80.0-100.0) fL MCH 28.5 (25.0-35.0) pg MCHC 33.5 (31.0-37.0) g/dL RDW 17.1 H (11.5-15.5) % Plt Count 355 D (150-450) k/uL MPV 8.8 Neutrophils % 63 % Lymphocytes % 23 % Monocytes % 6 % Eosinophils % 4 % Basophils % 2 % Neutrophils # 2.5 (1.3-7.7) k/uL Lymphocytes # 0.9 L (1.0-4.8) k/uL Monocytes # 0.3 (0-1.0) k/uL Eosinophils # 0.2 (0-0.7) k/uL Basophils # 0.1 (0-0.2) k/uL Hypochromasia Slight Anisocytosis Slight PT 10.4 (9.0-12.0) sec INR 0.9 (<1.2) APTT 21.6 L (22.0-30.0) sec Sodium 139 (137-145) mmol/L Potassium 4.3 (3.5-5.1) mmol/L Chloride 92 L (98-107) mmol/L Carbon Dioxide 25 (22-30) mmol/L Anion Gap 22 mmol/L BUN 11 (7-17) mg/dL Creatinine 1.67 H (0.52-1.04) mg/dL Est GFR (CKD-EPI)AfAm 46 (>60 ml/min/1.73 sqM) Est GFR (CKD-EPI)NonAf 40 (>60 ml/min/1.73 sqM) Glucose 279 H (74-99) mg/dL Calcium 9.4 (8.4-10.2) mg/dL Total Bilirubin 0.9 (0.2-1.3) mg/dL AST 36 (14-36) U/L ALT 28 (4-34) U/L Alkaline Phosphatase 399 H (38-126) U/L Troponin I (0.000-0.034) ng/mL Total Protein 7.3 (6.3-8.2) g/dL Albumin 4.7 (3.5-5.0) g/dL Stool Occult Blood (Negative) Blood Type Blood Type Recheck Bld Type Recheck Status Antibody Screen Spec Expiration Date 03/04/22 03/04/22 03/04/22 Range/Units 16:20 16:20 16:58 WBC (3.8-10.6) k/uL RBC (3.80-5.40) m/uL Hgb (11.4-16.0) gm/dL Hct (34.0-46.0) % MCV (80.0-100.0) fL MCH (25.0-35.0) pg MCHC (31.0-37.0) g/dL RDW (11.5-15.5) % Plt Count (150-450) k/uL MPV Neutrophils % % Lymphocytes % % Monocytes % % Eosinophils % % Basophils % % Neutrophils # (1.3-7.7) k/uL Lymphocytes # (1.0-4.8) k/uL Monocytes # (0-1.0) k/uL Eosinophils # (0-0.7) k/uL Basophils # (0-0.2) k/uL Hypochromasia Anisocytosis PT (9.0-12.0) sec INR (<1.2) APTT (22.0-30.0) sec Sodium (137-145) mmol/L Potassium (3.5-5.1) mmol/L Chloride (98-107) mmol/L Carbon Dioxide (22-30) mmol/L Anion Gap mmol/L BUN (7-17) mg/dL Creatinine (0.52-1.04) mg/dL Est GFR (CKD-EPI)AfAm (>60 ml/min/1.73 sqM) Est GFR (CKD-EPI)NonAf (>60 ml/min/1.73 sqM) Glucose (74-99) mg/dL Calcium (8.4-10.2) mg/dL Total Bilirubin (0.2-1.3) mg/dL AST (14-36) U/L ALT (4-34) U/L Alkaline Phosphatase (38-126) U/L Troponin I 0.028 (0.000-0.034) ng/mL Total Protein (6.3-8.2) g/dL Albumin (3.5-5.0) g/dL Stool Occult Blood Negative (Negative) Blood Type O Negative Blood Type Recheck O Neg Bld Type Recheck Status No Antibody Screen NEGATIVE Spec Expiration Date 03/07/20222319 Disposition Clinical Impression: Anemia, Hypertension Disposition: HOME SELF-CARE Condition: Stable Instructions (If sedation given, give patient instructions): Hypertension (ED), Anemia (ED) Additional Instructions: Please do take her blood pressure medications as prescribed. Please do follow- up with primary care physician in the next day or 2 for recheck. Return for increased blood pressure, increased fatigue or weakness or shortness of breath, bleeding, worsening symptoms or other concerns. Is patient prescribed a controlled substance at d/c from ED?: No Referrals: Roque Buckner MD [Primary Care Provider] - 1-2 days Time of Disposition: 19:33
[2022-03-04 16:51] LABS: Albumin 4.7 g/dL (3.5-5.0); Calcium 9.4 mg/dL (8.4-10.2); Total Bilirubin 0.9 mg/dL (0.2-1.3); Total Protein 7.3 g/dL (6.3-8.2)
[2022-03-04 16:56] LABS: Potassium 4.3 mmol/L (3.5-5.1)
[2022-03-04 17:01] LABS: INR 0.9 (<1.2); Prothrombin Time 10.4 sec (9.0-12.0)
[2022-03-04 17:02] LABS: Partial Thromboplastin Time 21.6 sec (22.0-30.0)
--- NOTE | 2022-03-04 17:40 | XR ---
EXAMINATION TYPE: XR chest 2V DATE OF EXAM: 03/04/2022 COMPARISON: NONE HISTORY: Rib pain TECHNIQUE: 02/20/2022 FINDINGS: Heart is enlarged. There is some coarsening of the interstitial markings. There is mild con gestion. There is no pleural effusion. Bony thorax is intact. IMPRESSION: There is mild cardiomegaly. There is partial clearing of the mild pulmonary congestion co mpared to old exam. No obvious rib fracture. No pneumothorax.
[2022-03-04] MEDS ORDERED: cloNIDine HCL 0.1 MG TAB PO STA (18:27)
[2022-03-04] MEDS ORDERED: hydrALAZINE HCL 50 MG TAB PO STA (18:27)
[2022-03-04] MEDS ORDERED: carvediloL 12.5 MG TAB PO STA (18:27)
[2022-03-04 20:27] VITALS: BP 239/113; PULSE 96; RESP 14
== END 2022-03-04 20:40 | disposition home or self-care (01) ==
LOC: EC 16:01
DX: D64.9 Anemia, unspecified (principal); I10 Essential (primary) hypertension; Z86.73 Personal history of transient ischemic attack (TIA), and cerebral infarction without residual deficits; E11.9 Type 2 diabetes mellitus without complications; I12.0 Hypertensive chronic kidney disease with stage 5 chronic kidney disease or end stage renal disease; N18.6 End stage renal disease; F41.9 Anxiety disorder, unspecified; F32.A Depression, unspecified; Z91.013 Allergy to seafood; Z91.041 Radiographic dye allergy status; Z79.4 Long term (current) use of insulin; Z79.51 Long term (current) use of inhaled steroids; Z79.82 Long term (current) use of aspirin; Z79.899 Other long term (current) drug therapy
CPT/HCPCS: 36415; 93005; 86900; 86901; 80053; 84484; 85025; 85610; 85730; 86850; 82272; 71046; 99284; 96374; 96375; 96361; J2270; C9113

== ENCOUNTER 2022-03-09 12:56 | Emergency (ER) | payer MEDICARE, OTHER ==
[2022-03-09] MEDS ORDERED: HYDROmorphone 1 MG/ML 1 ML SYRINGE IVP STA (13:25)
[2022-03-09 13:53] LABS: Anisocytosis Slight; Basophils # (A) 0.1 k/uL (0-0.2); Basophils % (A) 2 %; Eosinophils # (A) 0.1 k/uL (0-0.7); Eosinophils % (A) 3 %; HCT 22.5 % (34.0-46.0); HGB 7.2 gm/dL (11.4-16.0); Hypochromasia Slight; Lymphocytes # (A) 0.7 k/uL (1.0-4.8); Lymphocytes % (A) 21 %; MCH 27.9 pg (25.0-35.0); MCHC 31.9 g/dL (31.0-37.0); MCV 87.6 fL (80.0-100.0); Mean Platelet Volume 9.9; Monocytes # (A) 0.2 k/uL (0-1.0); Monocytes % (A) 6 %; Neutrophils # (A) 2.3 k/uL (1.3-7.7); Neutrophils % (A) 66 %; Platelet Count 232 k/uL (150-450); RBC 2.57 m/uL (3.80-5.40); WBC 3.5 k/uL (3.8-10.6)
[2022-03-09 14:05] LABS: Albumin 4.4 g/dL (3.5-5.0); Calcium 9.1 mg/dL (8.4-10.2); Potassium 5.3 mmol/L (3.5-5.1); Total Bilirubin 0.5 mg/dL (0.2-1.3); Total Protein 6.8 g/dL (6.3-8.2)
--- NOTE | 2022-03-09 14:05 | ED ---
General Adult HPI - General Chief complaint: Recheck/Abnormal Lab/Rx Stated complaint: sent by kidney doc for blood transfusion Time Seen by Provider: 03/09/22 13:14 Source: patient, family, RN notes reviewed, old records reviewed Mode of arrival: ambulatory Limitations: no limitations - History of Present Illness Initial comments: 31-year-old female end-stage renal disease presenting from dialysis with anemia. Patient has history of chronic anemia. She does require transfusions from time to time. She states that checked a hemoglobin at dialysis and was 6.4. She was sent to the emergency room for transfusion. She states they would arrange for hemodialysis either later today or tomorrow after transfusion. - Related Data Home Medications Medication Instructions Recorded Confirmed Ergocalciferol (Vitamin D2) 1,250 mcg PO Q30D 04/03/21 03/04/22 [Drisdol (50,000 Iu)] Isosorbide Mononitrate ER [Imdur] 30 mg PO HS 04/03/21 03/04/22 carvediloL [Coreg] 25 mg PO BID 04/03/21 03/04/22 Escitalopram [Lexapro] 20 mg PO DAILY 04/17/21 03/04/22 Albuterol Inhaler [Ventolin Hfa 2 puff INHALATION RT-QID PRN 12/06/21 03/04/22 Inhaler] Aspirin 81 mg PO DAILY 12/06/21 03/04/22 Methoxy Peg-Epoetin Beta [Mircera] 200 mcg IVPB Q14D 12/06/21 03/04/22 NIFEdipine XL [Procardia XL] 120 mg PO DAILY 12/06/21 03/04/22 Insulin Aspart [NovoLOG Flexpen] See Protocol SQ TID-W/MEALS 12/21/21 03/04/22 Insulin Detemir (Levemir) [Levemir] 13 unit SQ HS 12/21/21 03/04/22 Melatonin [Melatonin Dissolving 10 mg PO HS 12/21/21 03/04/22 Tablet] hydrALAZINE HCL [Apresoline] 100 mg PO TID 12/21/21 03/04/22 rOPINIRole HCL [Requip] 1 mg PO HS 12/21/21 03/04/22 Lidocaine-Prilocaine Cream [Emla 1 applic TOPICAL MOWEFR PRN 02/09/22 03/04/22 Cream 2.5%/2.5%] Losartan Potassium 100 mg PO DAILY 02/09/22 03/04/22 Prazosin [Minipress] 5 mg PO BID 02/09/22 03/04/22 buPROPion SR [Wellbutrin SR] 150 mg PO BID 02/09/22 03/04/22 Previous Rx's Medication Instructions Recorded Acetaminophen Tab [Tylenol] 650 mg PO Q6HR PRN #30 tab 04/09/21 Glucagon Emergency Kit 1 mg IM ONCE PRN #1 kit 06/15/21 Cyanocobalamin [Vitamin B-12] 1,000 mcg PO DAILY #60 tab 09/06/21 Atorvastatin [Lipitor] 40 mg PO DAILY 30 Days #30 tab 10/13/21 Calcium Acetate [PhosLo] 667 mg PO TID-W/MEALS 30 Days #90 10/13/21 tab Pantoprazole Sodium [Protonix] 20 mg PO BID #30 tab 10/15/21 LORazepam [Ativan] 1 mg PO TID PRN #90 tab 12/09/21 hydrOXYzine HCL [Atarax] 25 mg PO TID PRN #90 tab 12/09/21 cloNIDine HCL [Catapres] 0.3 mg PO TID PRN #90 tab 12/23/21 Allergies Allergy/AdvReac Type Severity Reaction Status Date / Time Fish Containing Products Allergy Rash/Hives Verified 03/09/22 13:09 [Fish] iodine Allergy Anaphylaxis Verified 03/09/22 13:09 Review of Systems ROS Statement: Those systems with pertinent positive or pertinent negative responses have been documented in the HPI. ROS Other: All systems not noted in ROS Statement are negative. Past Medical History Past Medical History: CVA/TIA, Diabetes Mellitus, Dialysis, Eye Disorder, Hypertension, Renal Disease Additional Past Medical History / Comment(s): ESRD with hemodialysis M/W/F, IDDM type 1, DKA, neuropathy bilateral legs/feet, diabetic retinopathy/legally blind, RLS, gastritis, severe hypokalemia, fluid retention in abdomin/legs. History of Any Multi-Drug Resistant Organisms: None Reported Past Surgical History: Appendectomy, Section, Cholecystectomy Additional Past Surgical History / Comment(s): fistula left arm Past Anesthesia/Blood Transfusion Reactions: No Reported Reaction Past Psychological History: Anxiety, Depression Smoking Status: Never smoker Past Alcohol Use History: None Reported Past Drug Use History: None Reported - Past Family History Mother Family Medical History: Cancer, Hypertension Additional Family Medical History / Comment(s): Thyroid cancer, bipolar Father Family Medical History: Seizure Disorder Additional Family Medical History / Comment(s): Epilepsy General Exam Limitations: no limitations General appearance: alert, in no apparent distress Head exam: Present: atraumatic, normocephalic ENT exam: Present: normal exam Neck exam: Present: normal inspection. Absent: tenderness, meningismus Respiratory exam: Present: normal lung sounds bilaterally. Absent: respiratory distress, wheezes Cardiovascular Exam: Present: regular rate, normal rhythm GI/Abdominal exam: Absent: distended Neurological exam: Present: alert. Absent: motor sensory deficit Psychiatric exam: Present: normal affect, normal mood Skin exam: Present: warm, dry, intact Course Vital Signs 03/09/22 03/09/22 13:06 14:07 Temperature 98.1 F Pulse Rate 74 78 Respiratory 16 18 Rate Blood Pressure 143/78 179/76 O2 Sat by Pulse 98 98 Oximetry Medical Decision Making - Medical Decision Making 31-year-old female sent by Dr. Chase for transfusion. Hemoglobin repeated, 7.2. She was 6.4 at dialysis. Given this discrepancy I did transfuse 1 unit in the emergency department. Patient's blood sugar is elevation will monitor closely at home she will undergo hemodialysis either later today or tomorrow. No respiratory distress. No hypoxia. Potassium 5.3 mildly elevated. - Lab Data Result diagrams: 03/09/22 13:33 03/09/22 13:33 Lab Results 03/09/22 03/09/22 Range/Units 13:33 13:33 WBC 3.5 L (3.8-10.6) k/uL RBC 2.57 L (3.80-5.40) m/uL Hgb 7.2 L (11.4-16.0) gm/dL Hct 22.5 L (34.0-46.0) % MCV 87.6 (80.0-100.0) fL MCH 27.9 (25.0-35.0) pg MCHC 31.9 (31.0-37.0) g/dL RDW 17.0 H (11.5-15.5) % Plt Count 232 (150-450) k/uL MPV 9.9 Neutrophils % 66 % Lymphocytes % 21 % Monocytes % 6 % Eosinophils % 3 % Basophils % 2 % Neutrophils # 2.3 (1.3-7.7) k/uL Lymphocytes # 0.7 L (1.0-4.8) k/uL Monocytes # 0.2 (0-1.0) k/uL Eosinophils # 0.1 (0-0.7) k/uL Basophils # 0.1 (0-0.2) k/uL Hypochromasia Slight Anisocytosis Slight Sodium 135 L (137-145) mmol/L Potassium 5.3 H (3.5-5.1) mmol/L Chloride 92 L (98-107) mmol/L Carbon Dioxide 23 (22-30) mmol/L Anion Gap 20 mmol/L BUN 47 H (7-17) mg/dL Creatinine 7.28 H* (0.52-1.04) mg/dL Est GFR (CKD-EPI)AfAm 8 (>60 ml/min/1.73 sqM) Est GFR (CKD-EPI)NonAf 7 (>60 ml/min/1.73 sqM) Glucose 407 H (74-99) mg/dL Calcium 9.1 (8.4-10.2) mg/dL Total Bilirubin 0.5 (0.2-1.3) mg/dL AST 35 (14-36) U/L ALT 52 H (4-34) U/L Alkaline Phosphatase 356 H (38-126) U/L Total Protein 6.8 (6.3-8.2) g/dL Albumin 4.4 (3.5-5.0) g/dL Disposition Clinical Impression: Anemia, ESRD (end stage renal disease) on dialysis Disposition: HOME SELF-CARE Condition: Fair Instructions (If sedation given, give patient instructions): Anemia (ED) Is patient prescribed a controlled substance at d/c from ED?: No Referrals: Roque Buckner MD [Primary Care Provider] - 1-2 days Fox Chase DO [STAFF PHYSICIAN] - 1-2 days Time of Disposition: 15:30
[2022-03-09] MEDS ORDERED: LORazepam 1 MG TAB PO STA (16:12)
[2022-03-09 16:35] VITALS: TEMP 97.8
[2022-03-09 18:47] VITALS: BP 193/101; PULSE 81; RESP 16
== END 2022-03-09 18:49 | disposition home or self-care (01) ==
LOC: EC 12:56
DX: D64.9 Anemia, unspecified (principal); N18.6 End stage renal disease; I10 Essential (primary) hypertension; F41.9 Anxiety disorder, unspecified; F32.A Depression, unspecified; I63.9 Cerebral infarction, unspecified; E11.9 Type 2 diabetes mellitus without complications; Z99.2 Dependence on renal dialysis; Z79.82 Long term (current) use of aspirin; Z79.4 Long term (current) use of insulin; Z79.811 Long term (current) use of aromatase inhibitors; Z79.899 Other long term (current) drug therapy; Z91.041 Radiographic dye allergy status; Z91.013 Allergy to seafood
CPT/HCPCS: 36415; 86900; 86901; 80053; 85025; 86850; 86920; 99283; 36430; P9016; J1170; 96374

== ENCOUNTER 2022-03-13 00:13 | Inpatient (IN) | payer MEDICARE, OTHER ==
[2022-03-13 00:58] LABS: Glucose,Whole Blood 451 mg/dL (70-110)
--- NOTE | 2022-03-13 01:09 | XR ---
EXAMINATION TYPE: XR chest 1V portable DATE OF EXAM: 03/13/2022 COMPARISON: 03/04/2022 HISTORY: Altered mental status TECHNIQUE: Single view FINDINGS: Heart is enlarged. There is pulmonary interstitial edema. There is very slight blunting lef t costophrenic angle. There are chest leads. Bony thorax is intact. IMPRESSION: Cardiomegaly and pulmonary interstitial edema. Edema increased compared to the old exam. Congestive heart failure is possible.
[2022-03-13] MEDS: HYDROcodone/APAP 5-325MG 1 EACH TAB PO STA ×2 (01:16→02:35)
[2022-03-13 01:24] LABS: ALT 28 U/L (4-34); AST 29 U/L (14-36); African American GFR (CKD) 10 (>60 ml/min/1.73 sqM); Albumin 3.7 g/dL (3.5-5.0); Alkaline Phosphatase 288 U/L (38-126); Anion Gap 20 mmol/L; Blood Urea Nitrogen 41 mg/dL (7-17); Calcium 8.9 mg/dL (8.4-10.2); Carbon Dioxide 19 mmol/L (22-30); Chloride 93 mmol/L (98-107); Glucose 407 mg/dL (74-99); Non-African American GFR(CKD) 9 (>60 ml/min/1.73 sqM); Sodium 132 mmol/L (137-145); Total Bilirubin 0.5 mg/dL (0.2-1.3); Total Protein 5.7 g/dL (6.3-8.2)
[2022-03-13] MEDS ORDERED: INSULIN REGULAR 100 UNIT/ML VIAL (IV) SQ STA (01:44)
[2022-03-13] MEDS ORDERED: SODIUM CHLORIDE 0.9% 500 ML 500 ML IV STA (01:44)
[2022-03-13 01:57] LABS: Anisocytosis Slight; Basophils % (A) 1 %; Eosinophils # (A) 0.1 k/uL (0-0.7); Eosinophils % (A) 3 %; HGB 7.3 gm/dL (11.4-16.0); Hypochromasia Slight; Lymphocytes # (A) 1.2 k/uL (1.0-4.8); Lymphocytes % (A) 27 %; MCH 29.3 pg (25.0-35.0); MCHC 33.1 g/dL (31.0-37.0); MCV 88.4 fL (80.0-100.0); Mean Platelet Volume 10.4; Monocytes # (A) 0.2 k/uL (0-1.0); Monocytes % (A) 4 %; Neutrophils # (A) 2.8 k/uL (1.3-7.7); Neutrophils % (A) 64 %; Platelet Count 192 k/uL (150-450); Poikilocytosis Slight; RBC 2.49 m/uL (3.80-5.40); RDW 16.4 % (11.5-15.5); WBC 4.4 k/uL (3.8-10.6)
--- NOTE | 2022-03-13 03:22 | ED ---
General Adult HPI - General Chief complaint: Recheck/Abnormal Lab/Rx Stated complaint: Hypotension Time Seen by Provider: 03/13/22 00:16 Source: patient, EMS Mode of arrival: EMS Limitations: no limitations - History of Present Illness Initial comments: This patient is a 31-year-old woman with history of diabetes and end-stage renal disease on hemodialysis. She arrives by ambulance to evaluation as she was not feeling well over the course of tonight. Patient was feeling weak and lightheaded. She states that she felt like she was going to pass out. Patient had called EMS who verified the patient had blood pressure in the 60s on arrival. She does give history of having dialysis on Monday and states that this session when as planned. She had not noted fever or chills. No dyspnea. She does have some chest pain but states that it feels like the pain is in her ribs. She had recently been hospitalized and had episode requiring CPR. She states that her ribs of been sore since that episode. No fever. No cough or dyspnea. She has not had vomiting or change in bowel movements. -: hour(s) Location: chest Radiation: non-radiation Quality: aching Consistency: intermittent Improves with: none Worsens with: movement Associated Symptoms: malaise, syncope (Near syncope), weakness Treatments Prior to Arrival: none - Related Data Home Medications Medication Instructions Recorded Confirmed Ergocalciferol (Vitamin D2) 1,250 mcg PO Q30D 04/03/21 03/13/22 [Drisdol (50,000 Iu)] carvediloL [Coreg] 25 mg PO BID 04/03/21 03/13/22 Escitalopram [Lexapro] 20 mg PO DAILY 04/17/21 03/13/22 Albuterol Inhaler [Ventolin Hfa 2 puff INHALATION RT-QID PRN 12/06/21 03/13/22 Inhaler] Aspirin 81 mg PO DAILY 12/06/21 03/13/22 Methoxy Peg-Epoetin Beta [Mircera] 200 mcg IVPB Q14D 12/06/21 03/13/22 NIFEdipine XL [Procardia XL] 60 mg PO BID 12/06/21 03/13/22 Insulin Aspart [NovoLOG Flexpen] See Protocol SQ TID-W/MEALS 12/21/21 03/13/22 Insulin Detemir (Levemir) [Levemir] 13 unit SQ HS 12/21/21 03/13/22 Melatonin [Melatonin Dissolving 10 mg PO HS 12/21/21 03/13/22 Tablet] rOPINIRole HCL [Requip] 2 mg PO HS 12/21/21 03/13/22 Lidocaine-Prilocaine Cream [Emla 1 applic TOPICAL MOWEFR PRN 02/09/22 03/13/22 Cream 2.5%/2.5%] buPROPion SR [Wellbutrin SR] 150 mg PO BID 02/09/22 03/13/22 rOPINIRole HCL [Requip] 1 mg PO DAILY 03/13/22 03/13/22 Previous Rx's Medication Instructions Recorded Acetaminophen Tab [Tylenol] 650 mg PO Q6HR PRN #30 tab 04/09/21 Glucagon Emergency Kit 1 mg IM ONCE PRN #1 kit 06/15/21 Cyanocobalamin [Vitamin B-12] 1,000 mcg PO DAILY #60 tab 09/06/21 Atorvastatin [Lipitor] 40 mg PO DAILY 30 Days #30 tab 10/13/21 Calcium Acetate [PhosLo] 667 mg PO TID-W/MEALS 30 Days #90 10/13/21 tab Pantoprazole Sodium [Protonix] 20 mg PO BID #30 tab 10/15/21 LORazepam [Ativan] 1 mg PO TID PRN #90 tab 12/09/21 hydrOXYzine HCL [Atarax] 25 mg PO TID PRN #90 tab 12/09/21 Allergies Allergy/AdvReac Type Severity Reaction Status Date / Time Fish Containing Products Allergy Rash/Hives Verified 03/13/22 10:44 [Fish] iodine Allergy Anaphylaxis Verified 03/13/22 10:44 Review of Systems ROS Statement: Those systems with pertinent positive or pertinent negative responses have been documented in the HPI. ROS Other: All systems not noted in ROS Statement are negative. Constitutional: Reports: weakness. Denies: fever, chills Eyes: Denies: vision change Respiratory: Denies: cough, dyspnea Cardiovascular: Reports: as per HPI, chest pain. Denies: palpitations, edema, syncope Gastrointestinal: Denies: abdominal pain, vomiting, diarrhea Musculoskeletal: Denies: back pain Skin: Denies: rash Neurological: Denies: headache, weakness, numbness Past Medical History Past Medical History: CVA/TIA, Diabetes Mellitus, Dialysis, Eye Disorder, Hyp ertension, Renal Disease Additional Past Medical History / Comment(s): ESRD with hemodialysis M/W/F, IDDM type 1, DKA, neuropathy bilateral legs/feet, diabetic retinopathy/legally blind, RLS, gastritis, severe hypokalemia, fluid retention in abdomin/legs. History of Any Multi-Drug Resistant Organisms: None Reported Past Surgical History: Appendectomy, Section, Cholecystectomy Additional Past Surgical History / Comment(s): fistula left arm Past Anesthesia/Blood Transfusion Reactions: No Reported Reaction Past Psychological History: Anxiety, Depression Smoking Status: Never smoker Past Alcohol Use History: None Reported Past Drug Use History: None Reported - Past Family History Mother Family Medical History: Cancer, Hypertension Additional Family Medical History / Comment(s): Thyroid cancer, bipolar Father Family Medical History: Seizure Disorder Additional Family Medical History / Comment(s): Epilepsy General Exam Limitations: no limitations General appearance: alert, in no apparent distress Head exam: Present: atraumatic, normocephalic Eye exam: Present: normal appearance. Absent: scleral icterus, conjunctival injection ENT exam: Present: normal oropharynx, mucous membranes moist Neck exam: Present: normal inspection, full ROM. Absent: meningismus Respiratory exam: Present: normal lung sounds bilaterally. Absent: respiratory distress, wheezes, rales, rhonchi, stridor Cardiovascular Exam: Present: normal rhythm, bradycardia, normal heart sounds. Absent: systolic murmur, diastolic murmur, rubs, gallop GI/Abdominal exam: Present: soft. Absent: distended, tenderness, guarding, rebound, rigid, mass Extremities exam: Present: normal inspection, normal capillary refill. Absent: pedal edema, calf tenderness Back exam: Present: normal inspection Neurological exam: Present: alert, oriented X3, CN II-XII intact. Absent: motor sensory deficit Course Vital Signs 03/13/22 03/13/22 03/13/22 00:22 00:27 01:15 Temperature 97.9 F Pulse Rate 50 L 50 L Pulse Rate [ 50 L Apical] Respiratory 14 18 Rate Blood Pressure 86/48 88/56 O2 Sat by Pulse 93 L 92 L Oximetry 03/13/22 03/13/22 03/13/22 01:50 02:00 02:10 Temperature Pulse Rate 61 60 61 Pulse Rate [ Apical] Respiratory 12 12 12 Rate Blood Pressure 106/78 93/57 112/82 O2 Sat by Pulse 94 L 94 L 94 L Oximetry 03/13/22 03/13/22 03/13/22 03:23 06:07 08:35 Temperature 98 F Pulse Rate 70 82 74 Pulse Rate [ Apical] Respiratory 16 16 16 Rate Blood Pressure 135/83 183/105 198/100 O2 Sat by Pulse 95 95 95 Oximetry 03/13/22 03/13/22 12:32 13:52 Temperature 97.9 F Pulse Rate 80 80 Pulse Rate [ Apical] Respiratory 18 Rate Blood Pressure 247/128 242/121 O2 Sat by Pulse 94 L Oximetry EKG Findings - EKG Results: EKG: interpreted by ERMD, sinus rhythm, normal axis EKG shows: bradycardia (Rate 51 bpm) - Blocks, [place], Hypertrophy, ST Abn: Repolarization changes or abnormalities: nonspecific abnormality, ST segment, and/or T wave, Q-T interval prolongation Medical Decision Making - Lab Data Result diagrams: 03/18/22 11:45 03/22/22 06:18 Lab Results 03/13/22 03/13/22 03/13/22 Range/Units 00:36 00:36 00:36 WBC 4.4 (3.8-10.6) k/uL RBC 2.49 L (3.80-5.40) m/uL Hgb 7.3 L (11.4-16.0) gm/dL Hct 22.0 L (34.0-46.0) % MCV 88.4 (80.0-100.0) fL MCH 29.3 (25.0-35.0) pg MCHC 33.1 (31.0-37.0) g/dL RDW 16.4 H (11.5-15.5) % Plt Count 192 (150-450) k/uL MPV 10.4 Neutrophils % 64 % Lymphocytes % 27 % Monocytes % 4 % Eosinophils % 3 % Basophils % 1 % Neutrophils # 2.8 (1.3-7.7) k/uL Lymphocytes # 1.2 (1.0-4.8) k/uL Monocytes # 0.2 (0-1.0) k/uL Eosinophils # 0.1 (0-0.7) k/uL Basophils # 0.0 (0-0.2) k/uL Hypochromasia Slight Poikilocytosis Slight Anisocytosis Slight D-Dimer (<0.60) mg/L FEU Sodium 132 L (137-145) mmol/L Potassium 5.0 (3.5-5.1) mmol/L Chloride 93 L (98-107) mmol/L Carbon Dioxide 19 L (22-30) mmol/L Anion Gap 20 mmol/L BUN 41 H (7-17) mg/dL Creatinine 5.99 H (0.52-1.04) mg/dL Est GFR (CKD-EPI)AfAm 10 (>60 ml/min/1.73 sqM) Est GFR (CKD-EPI)NonAf 9 (>60 ml/min/1.73 sqM) Glucose 407 H (74-99) mg/dL POC Glucose (mg/dL) (70-110) mg/dL POC Glu Assistant Foreman ID Calcium 8.9 (8.4-10.2) mg/dL Magnesium (1.6-2.3) mg/dL Total Bilirubin 0.5 (0.2-1.3) mg/dL AST 29 (14-36) U/L ALT 28 (4-34) U/L Alkaline Phosphatase 288 H (38-126) U/L Troponin I 0.024 (0.000-0.034) ng/mL Total Protein 5.7 L (6.3-8.2) g/dL Albumin 3.7 (3.5-5.0) g/dL Acetone, Qual Negative (Negative) 03/13/22 03/13/22 03/13/22 Range/Units 00:55 03:39 07:41 WBC (3.8-10.6) k/uL RBC (3.80-5.40) m/uL Hgb (11.4-16.0) gm/dL Hct (34.0-46.0) % MCV (80.0-100.0) fL MCH (25.0-35.0) pg MCHC (31.0-37.0) g/dL RDW (11.5-15.5) % Plt Count (150-450) k/uL MPV Neutrophils % % Lymphocytes % % Monocytes % % Eosinophils % % Basophils % % Neutrophils # (1.3-7.7) k/uL Lymphocytes # (1.0-4.8) k/uL Monocytes # (0-1.0) k/uL Eosinophils # (0-0.7) k/uL Basophils # (0-0.2) k/uL Hypochromasia Poikilocytosis Anisocytosis D-Dimer (<0.60) mg/L FEU Sodium (137-145) mmol/L Potassium (3.5-5.1) mmol/L Chloride (98-107) mmol/L Carbon Dioxide (22-30) mmol/L Anion Gap mmol/L BUN (7-17) mg/dL Creatinine (0.52-1.04) mg/dL Est GFR (CKD-EPI)AfAm (>60 ml/min/1.73 sqM) Est GFR (CKD-EPI)NonAf (>60 ml/min/1.73 sqM) Glucose (74-99) mg/dL POC Glucose (mg/dL) 451 H 366 H 40 L (70-110) mg/dL POC Glu Assistant Foreman ID Lavon, Tereclara Roblerot, Alondra Fetterly, [place] Calcium (8.4-10.2) mg/dL Magnesium (1.6-2.3) mg/dL Total Bilirubin (0.2-1.3) mg/dL AST (14-36) U/L ALT (4-34) U/L Alkaline Phosphatase (38-126) U/L Troponin I (0.000-0.034) ng/mL Total Protein (6.3-8.2) g/dL Albumin (3.5-5.0) g/dL Acetone, Qual (Negative) 03/13/22 03/13/22 03/13/22 Range/Units 08:26 16:50 20:28 WBC (3.8-10.6) k/uL RBC (3.80-5.40) m/uL Hgb (11.4-16.0) gm/dL Hct (34.0-46.0) % MCV (80.0-100.0) fL MCH (25.0-35.0) pg MCHC (31.0-37.0) g/dL RDW (11.5-15.5) % Plt Count (150-450) k/uL MPV Neutrophils % % Lymphocytes % % Monocytes % % Eosinophils % % Basophils % % Neutrophils # (1.3-7.7) k/uL Lymphocytes # (1.0-4.8) k/uL Monocytes # (0-1.0) k/uL Eosinophils # (0-0.7) k/uL Basophils # (0-0.2) k/uL Hypochromasia Poikilocytosis Anisocytosis D-Dimer (<0.60) mg/L FEU Sodium (137-145) mmol/L Potassium (3.5-5.1) mmol/L Chloride (98-107) mmol/L Carbon Dioxide (22-30) mmol/L Anion Gap mmol/L BUN (7-17) mg/dL Creatinine (0.52-1.04) mg/dL Est GFR (CKD-EPI)AfAm (>60 ml/min/1.73 sqM) Est GFR (CKD-EPI)NonAf (>60 ml/min/1.73 sqM) Glucose (74-99) mg/dL POC Glucose (mg/dL) 128 H 304 H 348 H (70-110) mg/dL POC Glu Assistant Foreman TYE Tate, Juanita Ferrer, Lupe Anderson Calcium (8.4-10.2) mg/dL Magnesium (1.6-2.3) mg/dL Total Bilirubin (0.2-1.3) mg/dL AST (14-36) U/L ALT (4-34) U/L Alkaline Phosphatase (38-126) U/L Troponin I (0.000-0.034) ng/mL Total Protein (6.3-8.2) g/dL Albumin (3.5-5.0) g/dL Acetone, Qual (Negative) 03/14/22 03/14/22 03/14/22 Range/Units 02:37 04:44 07:30 WBC (3.8-10.6) k/uL RBC (3.80-5.40) m/uL Hgb (11.4-16.0) gm/dL Hct (34.0-46.0) % MCV (80.0-100.0) fL MCH (25.0-35.0) pg MCHC (31.0-37.0) g/dL RDW (11.5-15.5) % Plt Count (150-450) k/uL MPV Neutrophils % % Lymphocytes % % Monocytes % % Eosinophils % % Basophils % % Neutrophils # (1.3-7.7) k/uL Lymphocytes # (1.0-4.8) k/uL Monocytes # (0-1.0) k/uL Eosinophils # (0-0.7) k/uL Basophils # (0-0.2) k/uL Hypochromasia Poikilocytosis Anisocytosis D-Dimer (<0.60) mg/L FEU Sodium (137-145) mmol/L Potassium (3.5-5.1) mmol/L Chloride (98-107) mmol/L Carbon Dioxide (22-30) mmol/L Anion Gap mmol/L BUN (7-17) mg/dL Creatinine (0.52-1.04) mg/dL Est GFR (CKD-EPI)AfAm (>60 ml/min/1.73 sqM) Est GFR (CKD-EPI)NonAf (>60 ml/min/1.73 sqM) Glucose (74-99) mg/dL POC Glucose (mg/dL) 420 H 276 H 197 H (70-110) mg/dL POC Glu Assistant Foreman Kenny Rodgers, Taty Corona Calcium (8.4-10.2) mg/dL Magnesium (1.6-2.3) mg/dL Total Bilirubin (0.2-1.3) mg/dL AST (14-36) U/L ALT (4-34) U/L Alkaline Phosphatase (38-126) U/L Troponin I (0.000-0.034) ng/mL Total Protein (6.3-8.2) g/dL Albumin (3.5-5.0) g/dL Acetone, Qual (Negative) 03/14/22 03/14/22 Range/Units 09:03 09:03 WBC (3.8-10.6) k/uL RBC (3.80-5.40) m/uL Hgb (11.4-16.0) gm/dL Hct (34.0-46.0) % MCV (80.0-100.0) fL MCH (25.0-35.0) pg MCHC (31.0-37.0) g/dL RDW (11.5-15.5) % Plt Count (150-450) k/uL MPV Neutrophils % % Lymphocytes % % Monocytes % % Eosinophils % % Basophils % % Neutrophils # (1.3-7.7) k/uL Lymphocytes # (1.0-4.8) k/uL Monocytes # (0-1.0) k/uL Eosinophils # (0-0.7) k/uL Basophils # (0-0.2) k/uL Hypochromasia Poikilocytosis Anisocytosis D-Dimer 0.58 (<0.60) mg/L FEU Sodium (137-145) mmol/L Potassium (3.5-5.1) mmol/L Chloride (98-107) mmol/L Carbon Dioxide (22-30) mmol/L Anion Gap mmol/L BUN (7-17) mg/dL Creatinine (0.52-1.04) mg/dL Est GFR (CKD-EPI)AfAm (>60 ml/min/1.73 sqM) Est GFR (CKD-EPI)NonAf (>60 ml/min/1.73 sqM) Glucose (74-99) mg/dL POC Glucose (mg/dL) (70-110) mg/dL POC Glu Assistant Foreman ID Calcium (8.4-10.2) mg/dL Magnesium 2.3 (1.6-2.3) mg/dL Total Bilirubin (0.2-1.3) mg/dL AST (14-36) U/L ALT (4-34) U/L Alkaline Phosphatase (38-126) U/L Troponin I (0.000-0.034) ng/mL Total Protein (6.3-8.2) g/dL Albumin (3.5-5.0) g/dL Acetone, Qual (Negative) Disposition Clinical Impression: ESRD (end stage renal disease) on dialysis, Hyperglycemia Disposition: ADMITTED IP TO THIS HOSP Condition: Fair
[2022-03-13 03:41] LABS: Glucose,Whole Blood 366 mg/dL (70-110)
[2022-03-13] MEDS ORDERED: ACETAMINOPHEN TAB 325 MG TAB PO PRN ×2 (06:28→13:02)
[2022-03-13] MEDS ORDERED: NALOXONE 0.4 MG/ML 1 ML VIAL IV PRN (06:28)
[2022-03-13 07:43] LABS: Glucose,Whole Blood 40 mg/dL (70-110)
[2022-03-13] MEDS ORDERED: DEXTROSE 50% SYRINGE 50 ML IVP STA (07:44)
[2022-03-13] MEDS ORDERED: LORazepam 1 MG TAB PO STA (08:04)
[2022-03-13 08:27] LABS: Glucose,Whole Blood 128 mg/dL (70-110)
[2022-03-13] MEDS ORDERED: carvediloL 12.5 MG TAB PO STA ×2 (11:21→19:45)
[2022-03-13] MEDS ORDERED: ALBUTEROL NEBULIZED 2.5 MG/3 ML INHALATION PRN (13:02)
[2022-03-13] MEDS ORDERED: hydrOXYzine HCL 25 MG TAB PO PRN (13:02)
--- NOTE | 2022-03-13 13:06 | P.NPCON ---
History of Present Illness - Reason for Consult Consult date: 03/13/22 end stage renal disease - Chief Complaint Shortness of breath - History of Present Illness This is a 31-year-old female, known with ESRD on dialysis Monday and Monday with diabetes type 1, for approximately the last 20 years. She came in because of hypotension and feeling of shortness of breath and weakness. Her blood pressure at home was in the 60s. She was dialyzed Monday 4 L taken off supposedly. Her blood pressure was in the 180s. Yesterday before she took her Coreg and Procardia for blood pressure was in the 180s and a few hours later it was in the 120s. She woke up at around midnight last night and felt weak and when her pressure was checked it was in the 60s and she felt very short of breath. She came in the ER. In the blood pressure here was in the 80s. She was given 5 mL of saline. Her blood pressure now is in the 240 range. Multiple blood pressures at different costs were taken and I confounded myself. There is no history of symptoms suggestive of pheochromocytoma for her labile blood pressure. She has not had a cardiac cath Recent echo was unremarkable on 10/30/2021. Her EKG shows sinus bradycardia as of this morning heart rate is 51. No evidence of gross ischemic changes She is known with diabetic retinopathy and legal blindness neuropathy. Past Medical History Past Medical History: CVA/TIA, Diabetes Mellitus, Dialysis, Eye Disorder, Hypertension, Renal Disease Additional Past Medical History / Comment(s): ESRD with hemodialysis M/W/F, IDDM type 1, DKA, neuropathy bilateral legs/feet, diabetic retinopathy/legally blind, RLS, gastritis, severe hypokalemia, fluid retention in abdomin/legs. History of Any Multi-Drug Resistant Organisms: None Reported Past Surgical History: Appendectomy, Section, Cholecystectomy Additional Past Surgical History / Comment(s): fistula left arm Past Anesthesia/Blood Transfusion Reactions: No Reported Reaction Past Psychological History: Anxiety, Depression Smoking Status: Never smoker Past Alcohol Use History: None Reported Past Drug Use History: None Reported - Past Family History Mother Family Medical History: Cancer, Hypertension Additional Family Medical History / Comment(s): Thyroid cancer, bipolar Father Family Medical History: Seizure Disorder Additional Family Medical History / Comment(s): Epilepsy Medications and Allergies Home Medications Medication Instructions Recorded Confirmed Type RX: Ergocalciferol (Vitamin D2) 1,250 mcg PO Q30D 04/03/21 03/13/22 History [Drisdol (50,000 Iu)] RX: carvediloL [Coreg] 25 mg PO BID 04/03/21 03/13/22 History RX: Acetaminophen Tab [Tylenol] 650 mg PO Q6HR PRN #30 tab 04/09/21 03/13/22 Rx RX: Escitalopram [Lexapro] 20 mg PO DAILY 04/17/21 03/13/22 History RX: Glucagon Emergency Kit 1 mg IM ONCE PRN #1 kit 06/15/21 03/13/22 Rx RX: Cyanocobalamin [Vitamin B-12] 1,000 mcg PO DAILY #60 tab 09/06/21 03/13/22 Rx RX: Atorvastatin [Lipitor] 40 mg PO DAILY 30 Days #30 tab 10/13/21 03/13/22 Rx RX: Calcium Acetate [PhosLo] 667 mg PO TID-W/MEALS 30 Days #90 10/13/21 03/13/22 Rx tab RX: Pantoprazole Sodium [Protonix] 20 mg PO BID #30 tab 10/15/21 03/13/22 Rx RX: Albuterol Inhaler [Ventolin 2 puff INHALATION RT-QID PRN 12/06/21 03/13/22 History Hfa Inhaler] RX: Aspirin 81 mg PO DAILY 12/06/21 03/13/22 History RX: Methoxy Peg-Epoetin Beta 200 mcg IVPB Q14D 12/06/21 03/13/22 History [Mircera] RX: NIFEdipine XL [Procardia XL] 60 mg PO BID 12/06/21 03/13/22 History RX: LORazepam [Ativan] 1 mg PO TID PRN #90 tab 12/09/21 03/13/22 Rx RX: hydrOXYzine HCL [Atarax] 25 mg PO TID PRN #90 tab 12/09/21 03/13/22 Rx RX: Insulin Aspart [NovoLOG See Protocol SQ TID-W/MEALS 12/21/21 03/13/22 History Flexpen] RX: Insulin Detemir (Levemir) 13 unit SQ HS 12/21/21 03/13/22 History [Levemir] RX: Melatonin [Melatonin 10 mg PO HS 12/21/21 03/13/22 History Dissolving Tablet] RX: rOPINIRole HCL [Requip] 2 mg PO HS 12/21/21 03/13/22 History RX: Lidocaine-Prilocaine Cream 1 applic TOPICAL MOWEFR PRN 02/09/22 03/13/22 History [Emla Cream 2.5%/2.5%] RX: buPROPion SR [Wellbutrin SR] 150 mg PO BID 02/09/22 03/13/22 History rOPINIRole HCL [Requip] 1 mg PO DAILY 03/13/22 03/13/22 History Allergies Allergy/AdvReac Type Severity Reaction Status Date / Time Fish Containing Products Allergy Rash/Hives Verified 03/13/22 10:44 [Fish] iodine Allergy Anaphylaxis Verified 03/13/22 10:44 Physical Exam Vitals: Vital Signs Temp Pulse Pulse Resp BP Pulse Ox 03/13/22 12:32 97.9 F 80 18 247/128 94 L 03/13/22 08:35 98 F 74 16 198/100 95 03/13/22 06:07 82 16 183/105 95 03/13/22 03:23 70 16 135/83 95 03/13/22 02:10 61 12 112/82 94 L 03/13/22 02:00 60 12 93/57 94 L 03/13/22 01:50 61 12 106/78 94 L 03/13/22 01:15 50 L 18 88/56 92 L 03/13/22 00:27 50 L 03/13/22 00:22 97.9 F 50 L 14 86/48 93 L Intake and Output 03/12/22 03/13/22 03/13/22 22:59 06:59 14:59 Other: Weight 45.359 kg Family on exam she is comfortable on 2 L nasal cannula HEENT exam no JVP neck is supple no facial asymmetry Lungs are significant for bilateral coarse crackles not clear but cough fairly good air entry bilateral Heart sounds unremarkable for any murmur rub gallop Abdomen soft nontender Extremity exam was trace edema Neurologically awake alert oriented Results - Lab Results Most recent lab results Calcium 8.9 mg/dL (8.4-10.2) 03/13/22 00:36 03/13/22 00:36 03/13/22 00:36 Assessment and Plan Assessment: Impression 1. ESRD on dialysis Monday since February 2020 with a fistula in the left. 2. Labile blood pressure, systolic was 60 at home and here in the ER was 80 and then after 500 mL of saline it went up to 240. 3. Congestive heart failure. Echocardiogram was rather unremarkable in October 2021 but because of the labile blood pressure and flash pulmonary edema possibly of coronary artery disease should be considered. 4. 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 Anemia hemoglobin 7.3 rule out an deficiency 6. Mild degree of gap acidosis with a gap of 20 and bicarb of of 19, suggestive of element of metabolic alkalosis as well. Recommendation 1. She was given Procardia and expect blood pressure did come down 2. Because of the congestive heart failure in the recent cardiac arrest will proceed with dialysis for about 2 hours takeoff 2 L under careful monitoring. 3. Suggest cardiology evaluation including possibly heart catheterization if needed, to explain the flash pulmonary edema and the labile blood pressure. 4. Check for pheochromocytoma with serum fractionated catecholamines
[2022-03-13] MEDS: HYDROcodone/APAP 5-325MG 1 EACH TAB PO PRN ×2 (14:06→20:30)
[2022-03-13] MEDS: carvediloL 12.5 MG TAB PO SCH (16:30)
[2022-03-13 16:52] LABS: Glucose,Whole Blood 304 mg/dL (70-110)
[2022-03-13] MEDS: CALCIUM ACETATE 667 MG TAB PO SCH (20:09)
[2022-03-13 20:29] LABS: Glucose,Whole Blood 348 mg/dL (70-110)
[2022-03-13] MEDS: ONDANSETRON 4 MG/2 ML VIAL IVP PRN (20:30)
[2022-03-13] MEDS: buPROPion SR 150 MG TABLET.ER PO SCH (20:30)
[2022-03-13] MEDS: MELATONIN 5 MG TABLET PO SCH (20:31)
[2022-03-13] MEDS: INSULIN DETEMIR (LEVEMIR) 100 UNIT/ML SYR SQ SCH (20:31)
[2022-03-13] MEDS: hydrALAZINE HCL 25 MG TAB PO SCH ×2 (20:31→20:40)
--- NOTE | 2022-03-13 23:18 | HP ---
HISTORY AND PHYSICAL CHIEF COMPLAINT: Hypotension. HISTORY OF PRESENT ILLNESS: This 31-year-old white female is just discharged from the hospital recently. She came in last night for a cardiac arrest and did well when she became awake and alert. She went home and continued with her outpatient dialysis. Apparently, she was not feeling well and her blood pressure was high. She took an amlodipine and then it came down. She went to sleep. A little later she woke up and was weak, lethargic and blood pressure was 60/37 with a pulse of 47. Ambulance was summoned. In the emergency room, blood pressure was low in the 60s and then it went up to 86/48. She denied chest pain, focal neurologic deficits, diaphoresis, etc. Past medical history, family history and personal and social history is unchanged. PHYSICAL EXAMINATION: VITAL SIGNS: At the present time, her blood pressure is up to 247/128, pulse is 78, respirations of 34, and she is afebrile. GENERAL: She appeared to be more edematous than usual. She was slightly pale. HEENT: Head, ears, eyes, nose, and throat were otherwise normal. CHEST: Clear. CARDIAC: Exam is normal. ABDOMEN: Flat, small, nontender. EXTREMITIES: Normal. NEUROLOGICAL: She is intact. DIAGNOSES: She is admitted to the hospital with diagnoses of, 1. Episode of hypotension with bradycardia. 2. Hypertensive urgency. 3. Stage 5 CKD, on dialysis. 4. Amblyopia. PLAN: 1. Bedrest. 2. IV fluids. 3. Telemetry. 4. Modify blood pressure management. MMODL / IJN: [id number] /
[2022-03-14 02:39] LABS: Glucose,Whole Blood 420 mg/dL (70-110)
[2022-03-14] MEDS ORDERED: INSULIN ASPART (NovoLOG) 100 UNIT/ML VIAL SQ ONE (03:04)
[2022-03-14 04:45] LABS: Glucose,Whole Blood 276 mg/dL (70-110)
[2022-03-14 07:32] LABS: Glucose,Whole Blood 197 mg/dL (70-110)
[2022-03-14] MEDS: CALCIUM ACETATE 667 MG TAB PO SCH ×3 (07:43→18:41)
[2022-03-14] MEDS: PANTOPRAZOLE 40 MG TABLET PO SCH (07:44)
[2022-03-14] MEDS: ONDANSETRON 4 MG/2 ML VIAL IVP PRN ×2 (07:44→13:58)
[2022-03-14] MEDS: ASPIRIN 81 MG PO SCH (07:44)
[2022-03-14] MEDS: buPROPion SR 150 MG TABLET.ER PO SCH ×2 (07:44→22:18)
[2022-03-14] MEDS: CYANOCOBALAMIN 500 MCG TAB PO SCH (07:44)
[2022-03-14] MEDS: HYDROcodone/APAP 5-325MG 1 EACH TAB PO PRN ×2 (07:46→13:56)
[2022-03-14] MEDS: ESCITALOPRAM 20 MG TAB PO SCH (07:52)
[2022-03-14] MEDS: hydrALAZINE HCL 25 MG TAB PO SCH ×3 (09:14→22:18)
[2022-03-14] MEDS: carvediloL 12.5 MG TAB PO SCH ×2 (09:14→18:41)
--- NOTE | 2022-03-14 09:34 | XR ---
EXAMINATION TYPE: XR chest 1V portable DATE OF EXAM: 03/14/2022 CLINICAL HISTORY: Difficulty breathing progress study. TECHNIQUE: Single AP portable upright view of the chest is obtained. COMPARISON: Chest x-ray from one day earlier and older studies. FINDINGS: Persistent increased central opacities bilaterally. No pleural effusion or pneumothorax se en. Stable mild cardiomegaly. Osseous structures are intact. Overlying EKG leads redemonstrated. IMPRESSION: Correlate for CHF exacerbation or fluid overload state. Similar appearance to one day ear lier.
--- NOTE | 2022-03-14 10:33 | P.CNPUL ---
History of Present Illness Consult date: 03/14/22 Requesting physician: Roque Buckner Reason for consult: other (Hypotension) Chief complaint: Dizziness, weakness History of present illness: This is a 31-year-old female patient with a known history of type 1 diabetes mellitus, end-stage renal disease receiving hemodialysis Monday, CVA/TIA, hypertension, diabetic retinopathy/legally blind, restless leg syndrome diabetic neuropathy, anxiety/depression. She was also admitted last month for an acute cardiopulmonary arrest secondary to fluid overload and hyperkalemia requiring brief CPR and intubation mechanical ventilatory support. She subsequently required covered and was discharged home on 03/01/2022. She represented to the emergency room early on 03/13/2022 with complaints of weakness, dizziness and lightheadedness. She had received hemodialysis as scheduled. She had been running hypertensive. She takes Coreg and Procardia at home and her blood pressure was 180s and a few hours later was 120 systolically. She woke up around midnight feeling weak and her pressure was in the 60s and she presented here for the same. She was admitted to the regular medical floor. This morning they called a rapid response team on her for her blood pressure dropping from the 170s to the 90s systolically. She continued to have low blood pressure. She did receive her blood pressure medicines yesterday but were held this morning. We are consulted for possible transfer to the ICU. Chest x-ray does reveal some fluid volume overload/congestive heart failure. White count 4.4. Hemoglobin 7.3. Platelets 192. D-dimer 0.58. Sodium 132. Potassium 5.0. Bicarb 19. Anion gap 20. BUN 41. Creatinine 5.99. Glucose 197. AST 29. ALT 28. Presenting glucose was 451. Acetone negative. She is continued on Levemir. During our evaluation she was alert and oriented 3. She was having some issues with dizziness and lightheadedness. No chest pain or palpitations. No shortness of breath. She is maintaining O2 saturations at 99% on 3 L nasal cannula. Systolic blood pressure in the 70s. Heart rate in the 5 0s. She is initiated on fluid bolus of 500 mL and if no improvement will receive a second 500 mL. She will be transferred to the cardiac stepdown unit for closer observation. Review of Systems REVIEW OF SYSTEMS: CONSTITUTIONAL: Positive for dizziness, lightheadedness, weakness. Denies any recent significant weight loss or weight gain. EYES: Denies change in vision. EARS, NOSE, MOUTH, THROAT: Denies headaches, denies sore throat. CARDIOVASCULAR: Denies chest pain, palpitations. Positive for dizziness. RESPIRATORY: Denies shortness of breath, cough, congestion or hemoptysis. GASTROINTESTINAL: Denies change in appetite, denies abdominal pain GENITOURINARY: Denies hematuria, denies infections. MUSKULOSKELETAL: Denies pain, denies swelling. INTEGUMENTARY: Denies rash, denies eczema. NEUROLOGICAL: Denies recent memory loss, no recent seizure activity. PSYCHIATRIC: Denies anxiety, denies depression. HEMATOLOGIC/LYMPHATIC: Denies anemia, denies enlarged lymph nodes. Past Medical History Past Medical History: CVA/TIA, Diabetes Mellitus, Dialysis, Eye Disorder, Hypertension, Renal Disease Additional Past Medical History / Comment(s): ESRD with hemodialysis M/W/F, IDDM type 1, DKA, neuropathy bilateral legs/feet, diabetic retinopathy/legally blind, RLS, gastritis, severe hypokalemia, fluid retention in abdomin/legs. History of Any Multi-Drug Resistant Organisms: None Reported Past Surgical History: Appendectomy, Section, Cholecystectomy Additional Past Surgical History / Comment(s): fistula left arm Past Anesthesia/Blood Transfusion Reactions: No Reported Reaction Past Psychological History: Anxiety, Depression Additional Psychological History / Comment(s): Pt resides with her father and pt's 3 children. Pt gets to dialysis by grandparents/family or cab. Smoking Status: Never smoker Past Alcohol Use History: None Reported Past Drug Use History: None Reported - Past Family History Mother Family Medical History: Cancer, Hypertension Additional Family Medical History / Comment(s): Thyroid cancer, bipolar Father Family Medical History: Seizure Disorder Additional Family Medical History / Comment(s): Epilepsy Medications and Allergies Home Medications Medication Instructions Recorded Confirmed Type Ergocalciferol (Vitamin D2) 1,250 mcg PO Q30D 04/03/21 03/13/22 History [Drisdol (50,000 Iu)] carvediloL [Coreg] 25 mg PO BID 04/03/21 03/13/22 History Acetaminophen Tab [Tylenol] 650 mg PO Q6HR PRN #30 tab 04/09/21 03/13/22 Rx Escitalopram [Lexapro] 20 mg PO DAILY 04/17/21 03/13/22 History Glucagon Emergency Kit 1 mg IM ONCE PRN #1 kit 06/15/21 03/13/22 Rx Cyanocobalamin [Vitamin B-12] 1,000 mcg PO DAILY #60 tab 09/06/21 03/13/22 Rx Atorvastatin [Lipitor] 40 mg PO DAILY 30 Days #30 tab 10/13/21 03/13/22 Rx Calcium Acetate [PhosLo] 667 mg PO TID-W/MEALS 30 Days #90 10/13/21 03/13/22 Rx tab Pantoprazole Sodium [Protonix] 20 mg PO BID #30 tab 10/15/21 03/13/22 Rx Albuterol Inhaler [Ventolin Hfa 2 puff INHALATION RT-QID PRN 12/06/21 03/13/22 History Inhaler] Aspirin 81 mg PO DAILY 12/06/21 03/13/22 History Methoxy Peg-Epoetin Beta [Mircera] 200 mcg IVPB Q14D 12/06/21 03/13/22 History NIFEdipine XL [Procardia XL] 60 mg PO BID 12/06/21 03/13/22 History LORazepam [Ativan] 1 mg PO TID PRN #90 tab 12/09/21 03/13/22 Rx hydrOXYzine HCL [Atarax] 25 mg PO TID PRN #90 tab 12/09/21 03/13/22 Rx Insulin Aspart [NovoLOG Flexpen] See Protocol SQ TID-W/MEALS 12/21/21 03/13/22 History Insulin Detemir (Levemir) [Levemir] 13 unit SQ HS 12/21/21 03/13/22 History Melatonin [Melatonin Dissolving 10 mg PO HS 12/21/21 03/13/22 History Tablet] rOPINIRole HCL [Requip] 2 mg PO HS 12/21/21 03/13/22 History Lidocaine-Prilocaine Cream [Emla 1 applic TOPICAL MOWEFR PRN 02/09/22 03/13/22 History Cream 2.5%/2.5%] buPROPion SR [Wellbutrin SR] 150 mg PO BID 02/09/22 03/13/22 History rOPINIRole HCL [Requip] 1 mg PO DAILY 03/13/22 03/13/22 History Allergies Allergy/AdvReac Type Severity Reaction Status Date / Time Fish Containing Products Allergy Rash/Hives Verified 03/13/22 10:44 [Fish] iodine Allergy Anaphylaxis Verified 03/13/22 10:44 Physical Exam Vitals: Vital Signs Temp Pulse Pulse Pulse Resp BP BP 03/14/22 09:33 03/14/22 09:15 03/14/22 09:05 03/14/22 08:40 97.8 F 53 L 22 03/14/22 08:30 03/14/22 07:30 97.6 F 57 L 20 03/14/22 02:33 98.1 F 74 17 03/13/22 22:50 03/13/22 19:30 98.6 F 88 18 218/97 03/13/22 18:33 98.0 F 85 19 201/98 03/13/22 15:54 98.2 F 81 18 236/122 03/13/22 15:42 98.2 F 84 16 220/118 03/13/22 13:52 80 242/121 03/13/22 12:32 97.9 F 80 18 247/128 BP Pulse Ox 03/14/22 09:33 73/44 03/14/22 09:15 74/37 03/14/22 09:05 71/49 03/14/22 08:40 91/49 99 03/14/22 08:30 99 03/14/22 07:30 93/56 98 03/14/22 02:33 175/86 94 L 03/13/22 22:50 164/80 03/13/22 19:30 93 L 03/13/22 18:33 03/13/22 15:54 95 03/13/22 15:42 96 03/13/22 13:52 03/13/22 12:32 94 L Intake and Output 03/13/22 03/14/22 03/14/22 22:59 06:59 14:59 Intake Total 300 Output Total 3300 Balance -3000 Intake: Hemodialysis 300 Output: Hemodialysis 3300 Other: Voiding Method Toilet Toilet # Voids 0 0 Weight 45.359 kg GENERAL EXAM: Alert, oriented 31-year-old female, thin, cachectic, on 3 L nasal cannula, comfortable in no apparent distress. HEAD: Normocephalic. EYES: Normal reaction of pupils, equal size. NOSE: Clear with pink turbinates. THROAT: No erythema or exudates. NECK: No masses, no JVD. CHEST: No chest wall deformity. LUNGS: Equal air entry with no crackles, wheeze, rhonchi or dullness. CVS: S1 and S2 normal with no audible murmur, regular rhythm. ABDOMEN: No hepatosplenomegaly, normal bowel sounds, no guarding or rigidity. SPINE: No scoliosis or deformity SKIN: No rashes CENTRAL NERVOUS SYSTEM: No focal deficits, tone is normal in all 4 extremities. EXTREMITIES: There is no peripheral edema. No clubbing, no cyanosis. Peripheral pulses are intact. Results - Laboratory Findings CBC and BMP: 03/13/22 00:36 03/13/22 00:36 PT/INR, D-dimer D-Dimer 0.58 mg/L FEU (<0.60) 03/14/22 09:03 Abnormal lab findings: Abnormal Labs 03/13/22 03/13/22 03/13/22 00:36 00:36 00:55 RBC 2.49 L Hgb 7.3 L Hct 22.0 L RDW 16.4 H Sodium 132 L Chloride 93 L Carbon Dioxide 19 L BUN 41 H Creatinine 5.99 H Glucose 407 H POC Glucose (mg/dL) 451 H Alkaline Phosphatase 288 H Total Protein 5.7 L 03/13/22 03/13/22 03/13/22 03:39 07:41 08:26 RBC Hgb Hct RDW Sodium Chloride Carbon Dioxide BUN Creatinine Glucose POC Glucose (mg/dL) 366 H 40 L 128 H Alkaline Phosphatase Total Protein 03/13/22 03/13/22 03/14/22 16:50 20:28 02:37 RBC Hgb Hct RDW Sodium Chloride Carbon Dioxide BUN Creatinine Glucose POC Glucose (mg/dL) 304 H 348 H 420 H Alkaline Phosphatase Total Protein 03/14/22 03/14/22 04:44 07:30 RBC Hgb Hct RDW Sodium Chloride Carbon Dioxide BUN Creatinine Glucose POC Glucose (mg/dL) 276 H 197 H Alkaline Phosphatase Total Protein - Diagnostic Findings Chest x-ray: image reviewed Assessment and Plan Assessment: Generalized weakness, dizziness secondary to hypotension History of hypertension on multiple antihypertensive medications Recent admission for cardiac arrest and acute hypoxemic respiratory failure secondary to hyperkalemia and fluid volume overload End-stage renal disease on hemodialysis, Monday Type 1 diabetes, on Levemir and NovoLog Diabetic neuropathy Diabetic retinopathy/legal blindness Chronic anemia of chronic disease History of CVA/TIA History of COVID-19 infection May 2021 Plan: The patient was seen and evaluated Chest x-ray, labs and medications reviewed Continue to hold antihypertensive Initiate a fluid bolus of 500 mL normal saline If no significant improvement we'll repeat a second bolus Transfer the patient to the cardiac stepdown unit Continue to monitor vital signs frequently We will continue to follow and make further recommendations based on her clinical status I have personally seen and examined the patient, performed the documentation and the assessment and plan as written. Number of minutes spent on the visit: 20.
[2022-03-14 10:39] LABS: Glucose,Whole Blood 274 mg/dL (70-110)
--- NOTE | 2022-03-14 12:46 | P.PN ---
Subjective Patient is seen for follow-up for end-stage renal disease. Patient has been transferred to the ICU as her systolic blood pressure remained in the 80s. Patient had x-ray treatment yesterday for volume overload. She had 3.3 L of ultrafiltration. Systolic blood pressure improved significantly from around 242 systolic yesterday and in fact it is on the lower side this morning. Patient has not received any of her antihypertensive medications this morning. 500 mL normal saline bolus is ordered Complaining of mild nausea. No complaints of shortness of breath or abdominal pain. Objective - Vital Signs Vital signs: Vital Signs Temp 97.6 F 03/14/22 12:00 Pulse 58 L 03/14/22 12:00 Resp 24 03/14/22 12:00 BP 101/62 03/14/22 12:00 Pulse Ox 90 L 03/14/22 12:00 FiO2 Intake & Output 03/13/22 03/14/22 03/14/22 18:59 06:59 18:59 Intake Total 300 Output Total 3300 0 Balance -3000 0 Weight 45.359 kg Intake: Hemodialysis 300 Output: Urine 0 Hemodialysis 3300 Other: Voiding Method Toilet # Voids 0 - Exam Awake, comfortable, not in any acute distress Alert oriented 3 Examination of the heart S1 and S2 Examination of the lungs bilateral breath sounds are heard Abdomen is soft nontender Examination lower extremities shows trace edema bilaterally DESKTOP ARCHITECT exam grossly intact - Labs CBC & Chem 7: 03/13/22 00:36 03/13/22 00:36 Labs: Abnormal Lab Results - Last 24 Hours (Table) 03/13/22 03/13/22 03/14/22 Range/Units 16:50 20:28 02:37 POC Glucose (mg/dL) 304 H 348 H 420 H (70-110) mg/dL 03/14/22 03/14/22 03/14/22 Range/Units 04:44 07:30 10:37 POC Glucose (mg/dL) 276 H 197 H 274 H (70-110) mg/dL Assessment and Plan Assessment: 1. ESRD on dialysis Monday since February 2020 with a fistula in the left arm. 2. Labile blood pressure, systolic was 60 at home and here in the ER was 80 and then after 500 mL of saline it went up to 240. Patient has been quite sensitive to normal saline. I will hold off on the bolus for now. 3. Congestive heart failure. Echocardiogram was rather unremarkable in October 2021 but because of the labile blood pressure and flash pulmonary edema possibly of coronary artery disease should be considered. 4. 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 Anemia hemoglobin 7.3 rule out an deficiency 6. Mild degree of gap acidosis with a gap of 20 and bicarb of of 19, suggestive of element of metabolic alkalosis as well. Plan: Hemodialysis today Hold saline bolus Hold antihypertensive medications for now Check plasma metanephrine levels Consider cardiac catheterization if blood pressure remains labile
[2022-03-14] MEDS: diphenhydrAMINE 50 MG/ML 1 ML VIAL IVP PRN (17:06)
[2022-03-14 20:33] LABS: Glucose,Whole Blood 348 mg/dL (70-110)
[2022-03-14] MEDS: INSULIN DETEMIR (LEVEMIR) 100 UNIT/ML SYR SQ SCH (21:36)
[2022-03-14 23:55] LABS: Glucose,Whole Blood 502 mg/dL (70-110)
[2022-03-14 23:57] LABS: Glucose,Whole Blood 513 mg/dL (70-110)
[2022-03-15] MEDS ORDERED: INSULIN ASPART (NovoLOG) 100 UNIT/ML VIAL SQ ONE (00:23)
[2022-03-15 01:09] LABS: Glucose,Whole Blood 486 mg/dL (70-110)
[2022-03-15] MEDS: MELATONIN 5 MG TABLET PO SCH ×2 (03:00→20:27)
[2022-03-15] MEDS: ONDANSETRON 4 MG/2 ML VIAL IVP PRN ×3 (03:53→20:26)
[2022-03-15 05:05] LABS: Glucose,Whole Blood 135 mg/dL (70-110)
[2022-03-15 06:38] LABS: Glucose,Whole Blood 71 mg/dL (70-110)
[2022-03-15] MEDS: PANTOPRAZOLE 40 MG TABLET PO SCH (07:49)
[2022-03-15] MEDS: CALCIUM ACETATE 667 MG TAB PO SCH ×3 (07:49→16:59)
[2022-03-15] MEDS: INSULIN ASPART (NovoLOG) 100 UNIT/ML VIAL SQ SCH ×4 (07:50→20:24)
[2022-03-15] MEDS: carvediloL 12.5 MG TAB PO SCH ×2 (08:01→16:59)
[2022-03-15] MEDS: buPROPion SR 150 MG TABLET.ER PO SCH ×2 (08:13→20:27)
[2022-03-15] MEDS: ASPIRIN 81 MG PO SCH (08:14)
[2022-03-15] MEDS: ESCITALOPRAM 20 MG TAB PO SCH (08:14)
[2022-03-15] MEDS: CYANOCOBALAMIN 500 MCG TAB PO SCH (08:14)
[2022-03-15] MEDS: hydrALAZINE HCL 25 MG TAB PO SCH (08:14)
[2022-03-15] MEDS: HYDROcodone/APAP 5-325MG 1 EACH TAB PO PRN ×2 (09:30→20:27)
--- NOTE | 2022-03-15 11:08 | PN ---
PROGRESS NOTE CHIEF COMPLAINT: Uncontrolled hypertension and renal failure. HISTORY OF PRESENT ILLNESS: During the night, this lady's blood sugars went up over 400. Blood pressure had been quite high yesterday and then it dropped to 91/49 with a pulse of 53 and she became very lightheaded. AA Team was called. She denied chest pain, abdominal pain, focal neurologic problems, headache, nausea, vomiting, etc. She was stabilized and arrangements were made for her to move to the intensive care unit. PHYSICAL EXAMINATION: GENERAL: She remains pale. CHEST: Clear. CARDIAC: Normal. ABDOMEN: Soft, nontender. Bowel sounds are present. IMPRESSION: 1. Episode of hypotension. 2. Dehydration. 3. Bradycardia. 4. Stage 5 chronic kidney disease. 5. Uncontrolled diabetes and hypertension. PLAN: D-dimer, troponin, EKG, BNP, and moved to the intensive care unit after discussion with early breastfeeding care specialist. EMILY / KYAW: [id number] /
--- NOTE | 2022-03-15 11:19 | P.PN ---
Subjective Patient is seen for follow-up for end-stage renal disease. Patient was transferred to ICU as her blood pressure was low. Blood pressure improved without any significant treatment. Patient did tolerate hemodialysis yesterday with 3.3 L of ultrafiltration. No complaints today Objective - Vital Signs Vital signs: Vital Signs Temp 98.6 F 03/15/22 08:00 Pulse 75 03/15/22 10:00 Resp 20 03/15/22 10:00 BP 147/77 03/15/22 10:00 Pulse Ox 92 L 03/15/22 10:00 FiO2 96 03/15/22 02:30 Intake & Output 03/14/22 03/15/22 03/15/22 18:59 06:59 18:59 Intake Total 300 Output Total 3300 0 Balance -3000 0 Weight 45.359 kg 51.1 kg Intake: Hemodialysis 300 Output: Urine 0 0 Hemodialysis 3300 Other: # Voids 0 # Bowel Movements 0 - Exam Awake, comfortable, not in any acute distress Alert oriented 3 Examination of the heart S1 and S2 Examination of the lungs bilateral breath sounds are heard Abdomen is soft nontender Examination lower extremities shows trace edema bilaterally CREDIT CORRESPONDENCE CLERK exam grossly intact - Labs CBC & Chem 7: 03/13/22 00:36 03/13/22 00:36 Labs: Abnormal Lab Results - Last 24 Hours (Table) 03/14/22 03/14/22 03/14/22 Range/Units 20:31 23:53 23:55 POC Glucose (mg/dL) 348 H 502 H 513 H (70-110) mg/dL 03/15/22 03/15/22 Range/Units 01:07 05:04 POC Glucose (mg/dL) 486 H 135 H (70-110) mg/dL Assessment and Plan Assessment: 1. ESRD on dialysis Monday since February 2020 with a fistula in the left arm. 2. Labile blood pressure, systolic was 60 at home and here in the ER was 80 and then after 500 mL of saline it went up to 240. Patient has been quite sensitive to normal saline. I will hold off on the bolus for now. 3. Congestive heart failure. Echocardiogram was rather unremarkable in October 2021 but because of the labile blood pressure and flash pulmonary edema possibly of coronary artery disease should be considered. 4. 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 Anemia hemoglobin 7.3 rule out iron deficiency Plan: Hemodialysis in a.m. Check BMP in a.m. Avoid hydralazine due to history of pericardial effusion with positive antihis tone antibodies.
[2022-03-15 11:33] LABS: Glucose,Whole Blood 488 mg/dL (70-110)
--- NOTE | 2022-03-15 11:53 | P.PN ---
Subjective Progress Note Date: 03/15/22 Principal diagnosis: Generalized weakness, dizziness secondary to hypotension. This is a 31-year-old female patient with a known history of type 1 diabetes mellitus, end-stage renal disease receiving hemodialysis Monday, CVA/TIA, hypertension, diabetic retinopathy/legally blind, restless leg syndrome diabetic neuropathy, anxiety/depression. She was also admitted last month for an acute cardiopulmonary arrest secondary to fluid overload and hyperkalemia requiring brief CPR and intubation mechanical ventilatory support. She subsequently required covered and was discharged home on 03/01/2022. She represented to the emergency room early on 03/13/2022 with complaints of weakness, dizziness and lightheadedness. She had received hemodialysis as scheduled. She had been running hypertensive. She takes Coreg and Procardia at home and her blood pressure was 180s and a few hours later was 120 systolically. She woke up around midnight feeling weak and her pressure was in the 60s and she presented here for the same. She was admitted to the regular medical floor. This morning they called a rapid response team on her for her blood pressure dropping from the 170s to the 90s systolically. She continued to have low blood pressure. She did receive her blood pressure medicines yesterday but were held this morning. We are consulted for possible transfer to the ICU. Chest x-ray does reveal some fluid volume overload/congestive heart failure. White count 4.4. Hemoglobin 7.3. Platelets 192. D-dimer 0.58. Sodium 132. Potassium 5.0. Bicarb 19. Anion gap 20. BUN 41. Creatinine 5.99. Glucose 197. AST 29. ALT 28. Presenting glucose was 451. Acetone negative. She is continued on Levemir. During our evaluation she was alert and oriented 3. She was having some issues with dizziness and lightheadedness. No chest pain or palpitations. No shortness of breath. She is maintaining O2 saturations at 99% on 3 L nasal cannula. Systolic blood pressure in the 70s. Heart rate in the 50s. She is initiated on fluid bolus of 500 mL and if no improvement will receive a second 500 mL. She will be transferred to the cardiac stepdown unit for closer observation. Reevaluated today on 03/15/22, patient remains in the ICU as an overflow, she is on 2 L nasal cannula, she is not requiring any pressors, patient is hemodynamically stable, feeling much per her today compared to how she felt yesterday, and her blood pressure seems to be within normal. Blood sugar is 488 this is being addressed by her admitting physician, and she is on insulin sliding scale. Patient is also on Levemir insulin. Pulmonary-keith the patient is doing well, and I plan to transfer the patient out of the ICU to a regular medical floor. Objective - Vital Signs Vital signs: Vital Signs Temp 98.6 F 03/15/22 08:00 Pulse 73 03/15/22 11:00 Resp 27 H 03/15/22 11:00 BP 139/80 03/15/22 11:00 Pulse Ox 90 L 03/15/22 11:00 FiO2 96 03/15/22 02:30 Intake & Output 03/14/22 03/15/22 03/15/22 18:59 06:59 18:59 Intake Total 300 Output Total 3300 0 Balance -3000 0 Weight 45.359 kg 51.1 kg Intake: Hemodialysis 300 Output: Urine 0 0 Hemodialysis 3300 Other: # Voids 0 # Bowel Movements 0 - Exam Physical Exam: Revealed a 51-year-old female in no distress Head: Atraumatic, normocephalic. HEENT:[Neck is supple.] [No neck masses.] [No thyromegaly.] [No JVD.] Chest: [Clear throughout, no crackles, no rhonchi, no wheezes.] Cardiac Exam: [Normal S1 and S2, no S3 gallop, no murmur.] Abdomen: [Soft, nontender, no megaly, no rebound, no guarding, normal bowel sounds.] Extremities: [No clubbing, no edema, no cyanosis.] Neurological Exam: [No focal neurologic deficit.] Alert and oriented 3. Psychiatric: Normal mood, affect and normal mental status examination. Skin: No rashes. - Labs CBC & Chem 7: 03/13/22 00:36 03/13/22 00:36 Labs: Abnormal Lab Results - Last 24 Hours (Table) 03/14/22 03/14/22 03/14/22 Range/Units 20:31 23:53 23:55 POC Glucose (mg/dL) 348 H 502 H 513 H (70-110) mg/dL 03/15/22 03/15/22 03/15/22 Range/Units 01:07 05:04 11:32 POC Glucose (mg/dL) 486 H 135 H 488 H (70-110) mg/dL Assessment and Plan Assessment: Impression: Generalized weakness, dizziness secondary to hypotension, resolved, I felt that hypertension is mostly related to extensive list of blood pressure medications and possibly some component of hypovolemia related to her hyperglycemia. History of hypertension on multiple antihypertensive medications Recent admission for cardiac arrest and acute hypoxemic respiratory failure secondary to hyperkalemia and fluid volume overload End-stage renal disease on hemodialysis, Monday Type 1 diabetes, on Levemir and NovoLog Diabetic neuropathy Diabetic retinopathy/legal blindness Chronic anemia of chronic disease History of CVA/TIA History of COVID-19 infection May 2021 Recommendation: Continue IV fluids Continue to hold blood pressure medications for now Transfer to a regular medical floor Continue addressing her diabetes and elevated blood sugar as being addressed by her primary care physician/admitting physician Will follow the patient on when necessary basis. No active pulmonary issues or clinical issues at this point. Time with Patient: Less than 30
[2022-03-15 16:38] LABS: Glucose,Whole Blood 360 mg/dL (70-110)
[2022-03-15 20:19] LABS: Glucose,Whole Blood 259 mg/dL (70-110)
[2022-03-15] MEDS: INSULIN DETEMIR (LEVEMIR) 100 UNIT/ML SYR SQ SCH (20:26)
[2022-03-15] MEDS: LORazepam 1 MG TAB PO PRN (20:29)
[2022-03-16] MEDS: carvediloL 12.5 MG TAB PO SCH ×2 (07:00→17:34)
[2022-03-16] MEDS: INSULIN ASPART (NovoLOG) 100 UNIT/ML VIAL SQ SCH ×4 (07:00→21:37)
[2022-03-16 07:01] LABS: Glucose,Whole Blood 100 mg/dL (70-110)
[2022-03-16] MEDS: CALCIUM ACETATE 667 MG TAB PO SCH ×3 (07:04→17:33)
[2022-03-16] MEDS: PANTOPRAZOLE 40 MG TABLET PO SCH (07:04)
[2022-03-16 08:33] LABS: Anisocytosis Slight; Basophils % (A) 1 %; Eosinophils # (A) 0.3 k/uL (0-0.7); Eosinophils % (A) 5 %; Lymphocytes # (A) 0.8 k/uL (1.0-4.8); Lymphocytes % (A) 14 %; MCH 28.4 pg (25.0-35.0); MCHC 33.3 g/dL (31.0-37.0); MCV 85.1 fL (80.0-100.0); Mean Platelet Volume 9.8; Monocytes # (A) 0.3 k/uL (0-1.0); Monocytes % (A) 6 %; Neutrophils # (A) 3.8 k/uL (1.3-7.7); Neutrophils % (A) 72 %; Platelet Count 263 k/uL (150-450); Poikilocytosis Slight; RBC 2.82 m/uL (3.80-5.40); RDW 17.4 % (11.5-15.5); WBC 5.3 k/uL (3.8-10.6)
[2022-03-16 08:37] LABS: Calcium 9.5 mg/dL (8.4-10.2); Potassium 4.7 mmol/L (3.5-5.1)
[2022-03-16] MEDS: buPROPion SR 150 MG TABLET.ER PO SCH ×2 (09:13→21:58)
[2022-03-16] MEDS: ESCITALOPRAM 20 MG TAB PO SCH (09:13)
[2022-03-16] MEDS: ONDANSETRON 4 MG/2 ML VIAL IVP PRN ×2 (09:14→17:32)
[2022-03-16] MEDS: HYDROcodone/APAP 5-325MG 1 EACH TAB PO PRN ×3 (09:14→21:38)
[2022-03-16] MEDS: diphenhydrAMINE 50 MG/ML 1 ML VIAL IVP PRN (09:30)
--- NOTE | 2022-03-16 11:32 | P.PN ---
Subjective Patient is seen for follow-up for end-stage renal disease. Patient was transferred to ICU as her blood pressure was low. Blood pressure improved without any significant treatment. Patient did tolerate hemodialysis with 3.3 L of ultrafiltration on 03/14/2022 No complaints today Patient is seen on dialysis. Tolerating treatment well. Goal UF about 4 L. Systolic blood pressure in the 170-160 range. Objective - Vital Signs Vital signs: Vital Signs Temp 98.1 F 03/16/22 09:30 Pulse 80 03/16/22 09:30 Resp 17 03/16/22 09:30 BP 175/104 03/16/22 09:30 Pulse Ox 99 03/16/22 09:30 FiO2 96 03/15/22 02:30 Intake & Output 03/15/22 03/16/22 03/16/22 18:59 06:59 18:59 Intake Total 300 Output Total 0 0 Balance 0 300 Weight 51.1 kg Intake: Oral 300 Output: Urine 0 0 Other: Voiding Method Toilet - Exam Awake, comfortable, not in any acute distress Alert oriented 3 Examination of the heart S1 and S2 Examination of the lungs bilateral breath sounds are heard Abdomen is soft nontender Examination lower extremities shows trace edema bilaterally PAGEANT DIRECTOR exam grossly intact - Labs CBC & Chem 7: 03/16/22 08:05 03/16/22 08:05 Labs: Abnormal Lab Results - Last 24 Hours (Table) 03/15/22 03/15/22 03/15/22 Range/Units 11:32 16:36 20:17 RBC (3.80-5.40) m/uL Hgb (11.4-16.0) gm/dL Hct (34.0-46.0) % RDW (11.5-15.5) % Lymphocytes # (1.0-4.8) k/uL Sodium (137-145) mmol/L Chloride (98-107) mmol/L BUN (7-17) mg/dL Creatinine (0.52-1.04) mg/dL Glucose (74-99) mg/dL POC Glucose (mg/dL) 488 H 360 H 259 H (70-110) mg/dL 03/16/22 03/16/22 Range/Units 08:05 08:05 RBC 2.82 L (3.80-5.40) m/uL Hgb 8.0 L (11.4-16.0) gm/dL Hct 24.0 L (34.0-46.0) % RDW 17.4 H (11.5-15.5) % Lymphocytes # 0.8 L (1.0-4.8) k/uL Sodium 134 L (137-145) mmol/L Chloride 91 L (98-107) mmol/L BUN 48 H (7-17) mg/dL Creatinine 6.74 H (0.52-1.04) mg/dL Glucose 119 H (74-99) mg/dL POC Glucose (mg/dL) (70-110) mg/dL Assessment and Plan Assessment: 1. ESRD on dialysis Monday since February 2020 with a fistula in the left arm. 2. Labile blood pressure, systolic was 60 at home and here in the ER was 80 and then after 500 mL of saline it went up to 240. Patient has been quite sensitive to normal saline. I will hold off on any IV fluids 3. Congestive heart failure. Echocardiogram was rather unremarkable in October 2021 but because of the labile blood pressure and flash pulmonary edema possibly of coronary artery disease should be considered. 4. 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 Anemia hemoglobin 7.3 rule out iron deficiency Plan: Continue to maintain dialysis on a Monday schedule. Increase UF as tolerated Continue current antihypertensive medications Avoid hydralazine as patient has history of pericardial effusion with positive a ntihistone antibodies
[2022-03-16 12:01] LABS: Glucose,Whole Blood 251 mg/dL (70-110)
--- NOTE | 2022-03-16 12:27 | P.PN ---
Subjective Progress Note Date: 03/16/22 Principal diagnosis: Generalized weakness, dizziness secondary to hypotension. This is a 31-year-old female patient with a known history of type 1 diabetes mellitus, end-stage renal disease receiving hemodialysis Monday, CVA/TIA, hypertension, diabetic retinopathy/legally blind, restless leg syndrome diabetic neuropathy, anxiety/depression. She was also admitted last month for an acute cardiopulmonary arrest secondary to fluid overload and hyperkalemia requiring brief CPR and intubation mechanical ventilatory support. She subsequently required covered and was discharged home on 03/01/2022. She represented to the emergency room early on 03/13/2022 with complaints of weakness, dizziness and lightheadedness. She had received hemodialysis as scheduled. She had been running hypertensive. She takes Coreg and Procardia at home and her blood pressure was 180s and a few hours later was 120 systolically. She woke up around midnight feeling weak and her pressure was in the 60s and she presented here for the same. She was admitted to the regular medical floor. This morning they called a rapid response team on her for her blood pressure dropping from the 170s to the 90s systolically. She continued to have low blood pressure. She did receive her blood pressure medicines yesterday but were held this morning. We are consulted for possible transfer to the ICU. Chest x-ray does reveal some fluid volume overload/congestive heart failure. White count 4.4. Hemoglobin 7.3. Platelets 192. D-dimer 0.58. Sodium 132. Potassium 5.0. Bicarb 19. Anion gap 20. BUN 41. Creatinine 5.99. Glucose 197. AST 29. ALT 28. Presenting glucose was 451. Acetone negative. She is continued on Levemir. During our evaluation she was alert and oriented 3. She was having some issues with dizziness and lightheadedness. No chest pain or palpitations. No shortness of breath. She is maintaining O2 saturations at 99% on 3 L nasal cannula. Systolic blood pressure in the 70s. Heart rate in the 50s. She is initiated on fluid bolus of 500 mL and if no improvement will receive a second 500 mL. She will be transferred to the cardiac stepdown unit for closer observation. Reevaluated today on 03/15/22, patient remains in the ICU as an overflow, she is on 2 L nasal cannula, she is not requiring any pressors, patient is hemodynamically stable, feeling much per her today compared to how she felt yesterday, and her blood pressure seems to be within normal. Blood sugar is 488 this is being addressed by her admitting physician, and she is on insulin sliding scale. Patient is also on Levemir insulin. Pulmonary-keith the patient is doing well, and I plan to transfer the patient out of the ICU to a regular medical floor. Reevaluated today on 03/16/22, patient remains as an overflow in the ICU, she is hemodynamically stable, she is actually receiving hemodialysis this morning. Not in any distress, pulmonary-keith the patient is stable, she has no cough no wheezing no shortness of breath, and she is still hemodynamically doing well. Hence patient will be transferred to a regular medical floor once a bed is available, she should be considered even for discharge planning if cleared by her admitting physician. Objective - Vital Signs Vital signs: Vital Signs Temp 98.1 F 03/16/22 09:30 Pulse 80 03/16/22 09:30 Resp 17 03/16/22 09:30 BP 175/104 03/16/22 09:30 Pulse Ox 99 03/16/22 09:30 FiO2 96 03/15/22 02:30 Intake & Output 03/15/22 03/16/22 03/16/22 18:59 06:59 18:59 Intake Total 300 Output Total 0 0 Balance 0 300 Weight 51.1 kg Intake: Oral 300 Output: Urine 0 0 Other: Voiding Method Toilet - Exam Physical Exam: Revealed a 51-year-old female in no distress, receiving hemodialysis Head: Atraumatic, normocephalic. HEENT:[Neck is supple.] [No neck masses.] [No thyromegaly.] [No JVD.] Chest: [Clear throughout, no crackles, no rhonchi, no wheezes.] Cardiac Exam: [Normal S1 and S2, no S3 gallop, no murmur.] Abdomen: [Soft, nontender, no megaly, no rebound, no guarding, normal bowel sounds.] Extremities: [No clubbing, no edema, no cyanosis.] Neurological Exam: [No focal neurologic deficit.] Alert and oriented 3. Psychiatric: Normal mood, affect and normal mental status examination. Skin: No rashes. - Labs CBC & Chem 7: 03/16/22 08:05 03/16/22 08:05 Labs: Abnormal Lab Results - Last 24 Hours (Table) 03/15/22 03/15/22 03/16/22 Range/Units 16:36 20:17 08:05 RBC 2.82 L (3.80-5.40) m/uL Hgb 8.0 L (11.4-16.0) gm/dL Hct 24.0 L (34.0-46.0) % RDW 17.4 H (11.5-15.5) % Lymphocytes # 0.8 L (1.0-4.8) k/uL Sodium (137-145) mmol/L Chloride (98-107) mmol/L BUN (7-17) mg/dL Creatinine (0.52-1.04) mg/dL Glucose (74-99) mg/dL POC Glucose (mg/dL) 360 H 259 H (70-110) mg/dL 03/16/22 03/16/22 Range/Units 08:05 11:59 RBC (3.80-5.40) m/uL Hgb (11.4-16.0) gm/dL Hct (34.0-46.0) % RDW (11.5-15.5) % Lymphocytes # (1.0-4.8) k/uL Sodium 134 L (137-145) mmol/L Chloride 91 L (98-107) mmol/L BUN 48 H (7-17) mg/dL Creatinine 6.74 H (0.52-1.04) mg/dL Glucose 119 H (74-99) mg/dL POC Glucose (mg/dL) 251 H (70-110) mg/dL Assessment and Plan Assessment: Impression: Generalized weakness, dizziness secondary to hypotension, resolved, I felt that hypertension is mostly related to extensive list of blood pressure medications and possibly some component of hypovolemia related to her hyperglycemia. History of hypertension on multiple antihypertensive medications Recent admission for cardiac arrest and acute hypoxemic respiratory failure secondary to hyperkalemia and fluid volume overload End-stage renal disease on hemodialysis, Monday Type 1 diabetes, on Levemir and NovoLog Diabetic neuropathy Diabetic retinopathy/legal blindness Chronic anemia of chronic disease History of CVA/TIA History of COVID-19 infection May 2021 Recommendation: Consider discharge planning , cleared from our perspective for discharge if cleared by other physicians and consultants Transfer to a regular medical floor Will follow-up when necessary
--- NOTE | 2022-03-16 12:50 | PN ---
PROGRESS NOTE DATE OF SERVICE: 03/15/2022 CHIEF COMPLAINT: Uncontrolled hypertension and diabetes. HISTORY OF PRESENT ILLNESS: This lady is doing fairly well, but as usual, her blood pressure and blood sugars are fluctuating all over the place. Last night, her blood sugar was over 500, and this morning, it is below 100. Blood pressures are also fluctuating. PHYSICAL EXAMINATION: CHEST: Clear. CARDIAC: Unchanged. ABDOMEN: Soft, nontender. VITAL SIGNS: Blood pressure 139/82. She is asking me for something more for pain. IMPRESSION: 1. Uncontrolled hypertension. 2. Uncontrolled insulin-dependent diabetes mellitus. 3. Chronic renal failure. 4. Amblyopia. PLAN: Continue with efforts to manage her diabetes and hypertension while she is dialyzed. MMODL / IJN: [id number] /
[2022-03-16] MEDS: ASPIRIN 81 MG PO SCH (14:32)
[2022-03-16] MEDS: CYANOCOBALAMIN 500 MCG TAB PO SCH (14:32)
[2022-03-16 16:51] LABS: Glucose,Whole Blood 259 mg/dL (70-110)
[2022-03-16 18:35] LABS: % Iron Saturation 20.35 (12.00-45.00)
[2022-03-16 20:24] LABS: Glucose,Whole Blood >600 mg/dL (70-110)
[2022-03-16 20:29] LABS: Glucose,Whole Blood >600 mg/dL (70-110)
[2022-03-16] MEDS: INSULIN DETEMIR (LEVEMIR) 100 UNIT/ML SYR SQ SCH (21:38)
[2022-03-16] MEDS: MELATONIN 5 MG TABLET PO SCH (21:39)
[2022-03-16] MEDS: LORazepam 1 MG TAB PO PRN (21:39)
[2022-03-16] MEDS ORDERED: INSULIN ASPART (NovoLOG) 100 UNIT/ML VIAL SQ ONE (21:45)
[2022-03-16] MEDS ORDERED: HYDROmorphone 1 MG/ML 1 ML SYRINGE IVP STA (21:46)
[2022-03-16 22:31] LABS: Glucose,Whole Blood >600 mg/dL (70-110)
[2022-03-16 23:42] LABS: Glucose,Whole Blood >600 mg/dL (70-110)
[2022-03-17] MEDS ORDERED: INSULIN REGULAR 100 UNIT in SODIUM CHLORIDE 0.9% 100 ML IV SCH (01:45)
[2022-03-17 02:43] LABS: Glucose,Whole Blood 311 mg/dL (70-110)
[2022-03-17] MEDS: HYDROcodone/APAP 5-325MG 1 EACH TAB PO PRN ×4 (02:49→20:38)
[2022-03-17] MEDS: ONDANSETRON 4 MG/2 ML VIAL IVP PRN ×4 (02:50→20:39)
[2022-03-17 03:41] LABS: Glucose,Whole Blood 186 mg/dL (70-110)
[2022-03-17 04:43] LABS: Glucose,Whole Blood 59 mg/dL (70-110)
[2022-03-17 04:49] LABS: Glucose,Whole Blood 44 mg/dL (70-110)
[2022-03-17] MEDS: DEXTROSE 50% SYRINGE 50 ML IVP PRN (04:50)
[2022-03-17 05:04] LABS: Glucose,Whole Blood 88 mg/dL (70-110)
[2022-03-17 05:53] LABS: Glucose,Whole Blood 82 mg/dL (70-110)
[2022-03-17] MEDS: carvediloL 12.5 MG TAB PO SCH ×2 (06:46→17:14)
[2022-03-17] MEDS: CALCIUM ACETATE 667 MG TAB PO SCH ×3 (06:46→17:14)
[2022-03-17] MEDS: INSULIN ASPART (NovoLOG) 100 UNIT/ML VIAL SQ SCH ×7 (06:46→20:39)
[2022-03-17] MEDS: PANTOPRAZOLE 40 MG TABLET PO SCH (06:47)
[2022-03-17] MEDS: buPROPion SR 150 MG TABLET.ER PO SCH ×2 (08:45→20:37)
[2022-03-17] MEDS: ESCITALOPRAM 20 MG TAB PO SCH (08:46)
[2022-03-17] MEDS: ASPIRIN 81 MG PO SCH (08:46)
[2022-03-17] MEDS: CYANOCOBALAMIN 500 MCG TAB PO SCH (08:46)
--- NOTE | 2022-03-17 11:52 | CDI ---
Documentation Clarification Form Date: 03/17/2022 11:21:23 AM From: Nguyen Bertrand RN CCDS Admit Date: 03/14/2022 10:33:00 AM Patient Name: Patsy Pizano Visit Number: [id number] Discharge Date: ATTENTION: The Clinical Documentation Specialists (CDI) and [facility] Coding Staff appreciate your assistance in clarifying documentation. Please respond to the clarification below the line at the bottom and electronically sign. The CDI & [facility] Coding staff will review the response and follow-up if needed. Please note: Queries are made part of the Legal Health Record. If you have any questions, please contact the author of this message via ITS. Dr. Carol Leblanc Your patient has the documented diagnosis of unspecified CHF 03/14, Fertilizing Machine Operator consult. Additional information regarding the type, acuity of CHF is requested. History/Risk Factors: 31-year-old female presents to the ED via EMS for weakness and being lightheaded. EMS verified B/P in the 60s on arrival . Medical History: Recent cardiac arrest, hypoxic respiratory failure, ESRD, Dialysis, CHF and DM1. Clinical Indicators: VS/Pulse OX: 03/14 B/P 93/56; HR 57; Temp 97.6 F Axillary; RR 20; SpO2 98% 3L nc Echocardiogram Results: 02/18/22 EF 50-55% Normal LV systolic function moderate pericardial effusion. Chest X Ray: 03/14 Persistent increased central opacities bilaterally. Fertilizing Machine Operator Consult: 03/14 Chest x-ray does reveal some fluid volume overload / congestive heart failure. Treatment: 03/13 Coreg 25mg PO x 1; 03/13 Procardia xl 60mg PO x 1; 03/13 Coreg 25mgp PO BID; 03/13 Coreg 25mg PO x 1; Dialysis 03/13 and 03/14 Fertilizing Machine Operator Consult: 03/14 see above In your professional opinion, can you please clarify the acuity and type of CHF if known? [ x ] Chronic Diastolic Heart Failure (preserved EF) [ ] Acute on Chronic Diastolic Heart Failure (preserved EF) [ ] Other, please specify [ ] Unable to determine (Template Last Revised: June 2020) MTDD
[2022-03-17 12:02] LABS: Glucose,Whole Blood 395 mg/dL (70-110)
[2022-03-17] MEDS: LORazepam 1 MG TAB PO PRN ×2 (12:23→23:34)
[2022-03-17] MEDS: diphenhydrAMINE 50 MG/ML 1 ML VIAL IVP PRN (12:23)
--- NOTE | 2022-03-17 12:49 | CDI ---
Documentation Clarification Form Date: 03/17/2022 11:54:01 AM From: Nguyen Bertrand RN CCDS Admit Date: 03/14/2022 10:33:00 AM Patient Name: Patsy Pizano Visit Number: [id number] Discharge Date: ATTENTION: The Clinical Documentation Specialists (CDI) and [facility] Coding Staff appreciate your assistance in clarifying documentation. Please respond to the clarification below the line at the bottom and electronically sign. The CDI & [facility] Coding staff will review the response and follow-up if needed. Please note: Queries are made part of the Legal Health Record. If you have any questions, please contact the author of this message via ITS. Dr. Roque Buckner The patients principal diagnosis the diagnosis that was chiefly responsible for the admission - has not been clearly identified and clarification is requested. The patient presented with the following: Malaise, Near syncope, weakness and hyperglycemia. History/Risk Factors: 31-year-old female presents to the ED via EMS for weakness and being lightheaded. EMS verified B/P in the 60s on arrival . Medical History: Recent cardiac arrest, hypoxic respiratory failure, ESRD, Dialysis, CHF and DM1. Clinical Indicators: H&P, 03/13: Apparently, she was not feeling well and her blood pressure was high. She took an amlodipine and then it came down. She went to sleep. A little later she woke up was weak, lethargic and blood pressure was 60/37 with pulse of 47. In ED B/P went up to 86/48. Lab findings: 03/13 Wbc 4.4; Rbc 2.49; Hgb 7.3; NA 132; Chl 93; Carbon Dioxide 19; BUN 41; Cr 5.99; Glucose 407; Alk Phos 288; Total Protein 5.7; Acetone , Qual neg. CXR: 03/13 Cardiomegaly and pulmonary interstitial edema. Edema increased compared to old exam. Vital Signs: B/P 86/48; HR 50; Temp 97.9F Oral; RR 14; SpO2 93% ra Patternmaker Metal Note, 03/16: Generalized weakness secondary to hypotension, resolved, I felt that hypertension is mostly related to extensive list of blood pressure medications and possibly some component of hypovolemia related to her hyperglycemia. Treatment: 03/13 Coreg 25mg PO x 1; 03/13 Procardia xl 60mg PO x 1; 03/13 Coreg 25mgp PO BID; 03/13 Coreg 25mg PO x 1; Dialysis 03/13 and 03/14; 03/13 03/15 Apresoline 25mg PO TID. Consults: see above Patternmaker Metal In your professional opinion, can you please clarify which diagnosis, after study, was the reason chiefly responsible for the admission? [ ] Hypotension related to (please specify) [ ] Uncontrolled hypertension related to (please specify) [ ] Other, please specify [ ] Unable to determine (Template Last Revised: July 2020) MTDD
--- NOTE | 2022-03-17 13:11 | P.PN ---
Subjective Patient is seen for follow-up for end-stage renal disease. Complaining of increased shortness of breath today. Patient is requesting an extra treatment as she states she feels she has a lot of fluid on. Systolic blood pressure 160-1 70 mmHg however last reading was 129/75. No chest pains Objective - Vital Signs Vital signs: Vital Signs Temp 97.5 F L 03/17/22 08:00 Pulse 66 03/17/22 08:00 Resp 17 03/17/22 08:00 BP 129/75 03/17/22 08:00 Pulse Ox 95 03/17/22 08:00 FiO2 96 03/15/22 02:30 Intake & Output 03/16/22 03/17/22 03/17/22 18:59 06:59 18:59 Intake Total 250 Output Total 0 Balance 250 Weight 51.1 kg Intake: Oral 250 Output: Urine 0 Other: Voiding Method Toilet Toilet Toilet - Exam Awake, comfortable, not in any acute distress Alert oriented 3 Examination of the heart S1 and S2 Examination of the lungs bilateral breath sounds are heard Abdomen is soft nontender Examination lower extremities shows trace edema bilaterally WRAPPER REWINDER exam grossly intact - Labs CBC & Chem 7: 03/16/22 08:05 03/16/22 23:58 Labs: Abnormal Lab Results - Last 24 Hours (Table) 03/16/22 03/16/22 03/16/22 Range/Units 16:50 20:22 20:24 Glucose (74-99) mg/dL POC Glucose (mg/dL) 259 H >600 H >600 H (70-110) mg/dL 03/16/22 03/16/22 03/16/22 Range/Units 20:42 22:28 23:39 Glucose 748 H* (74-99) mg/dL POC Glucose (mg/dL) >600 H >600 H (70-110) mg/dL 03/16/22 03/17/22 03/17/22 Range/Units 23:58 02:41 03:39 Glucose 658 H* (74-99) mg/dL POC Glucose (mg/dL) 311 H 186 H (70-110) mg/dL 03/17/22 03/17/22 03/17/22 Range/Units 04:27 04:47 11:57 Glucose (74-99) mg/dL POC Glucose (mg/dL) 59 L 44 L 395 H (70-110) mg/dL Assessment and Plan Assessment: 1. ESRD on dialysis Monday since February 2020 with a fistula in the left arm. 2. Labile blood pressure, systolic was 60 at home and here in the ER was 80 and then after 500 mL of saline it went up to 240. Patient has been quite sensitive to normal saline. I will hold off on any IV fluids 3. Congestive heart failure. Echocardiogram was rather unremarkable in October 2021 but because of the labile blood pressure and flash pulmonary edema possibly of coronary artery disease should be considered. 4. 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 Anemia hemoglobin 8.0, iron replete maintained on Aranesp. No active bleeding noted Plan: Extra treatment of hemodialysis today and then repeat again in a.m. Patient is advised regarding fluid restriction again
[2022-03-17 16:56] LABS: Glucose,Whole Blood 341 mg/dL (70-110)
[2022-03-17 19:46] LABS: Glucose,Whole Blood 161 mg/dL (70-110)
[2022-03-17] MEDS: MELATONIN 5 MG TABLET PO SCH (20:37)
[2022-03-17] MEDS: LOPERAMIDE 2 MG CAP PO PRN (23:34)
[2022-03-18] MEDS: HYDROcodone/APAP 5-325MG 1 EACH TAB PO PRN ×3 (04:28→20:28)
[2022-03-18] MEDS: ONDANSETRON 4 MG/2 ML VIAL IVP PRN ×2 (04:29→20:28)
[2022-03-18 06:13] LABS: Glucose,Whole Blood >600 mg/dL (70-110)
[2022-03-18] MEDS: carvediloL 12.5 MG TAB PO SCH ×2 (07:00→17:02)
[2022-03-18] MEDS: PANTOPRAZOLE 40 MG TABLET PO SCH ×2 (07:00→07:01)
[2022-03-18] MEDS: CALCIUM ACETATE 667 MG TAB PO SCH ×3 (07:00→17:02)
[2022-03-18] MEDS: INSULIN ASPART (NovoLOG) 100 UNIT/ML VIAL SQ SCH ×10 (07:01→20:29)
[2022-03-18] MEDS: ESCITALOPRAM 20 MG TAB PO SCH (09:26)
[2022-03-18] MEDS: CYANOCOBALAMIN 500 MCG TAB PO SCH (09:26)
[2022-03-18] MEDS: buPROPion SR 150 MG TABLET.ER PO SCH ×2 (09:27→20:28)
[2022-03-18] MEDS: ASPIRIN 81 MG PO SCH (09:27)
[2022-03-18] MEDS: INSULIN DETEMIR (LEVEMIR) 100 UNIT/ML SYR SQ SCH (09:28)
--- NOTE | 2022-03-18 11:38 | P.PN ---
Subjective Patient is seen for follow-up for end-stage renal disease. Schedule for hemodialysis today. Patient had an extra treatment yesterday. Blood sugar was elevated at 1091 this morning. 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 ESRD on dialysis Monday since February 2020 with a fistula in the left arm. 2. Labile blood pressure, systolic was 60 at home and here in the ER was 80 and then after 500 mL of saline it went up to 240. Patient has been quite sensitive to normal saline. I will hold off on any IV fluids 3. Congestive heart failure. Echocardiogram was rather unremarkable in October 2021 but because of the labile blood pressure and flash pulmonary edema possibly of coronary artery disease should be considered. 4. 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 Anemia hemoglobin 8.0, iron replete maintained on Aranesp. No active bleeding noted 6. Brittle diabetes Plan: Hemodialysis today, increase UF as tolerated Blood sugar control as per primary service
[2022-03-18 11:39] LABS: Glucose,Whole Blood >600 mg/dL (70-110)
--- NOTE | 2022-03-18 12:02 | PN ---
PROGRESS NOTE DATE OF SERVICE: 03/16/2022 CHIEF COMPLAINT: Uncontrolled hypertension, diabetes with renal failure and amblyopia. HISTORY OF PRESENT ILLNESS: This lady is having difficulties with hyperglycemia at night. She is going up into the 400 and 500 range every night. She is very sensitive to the insulin. She will be given 10 units of NovoLog and then she will come back down to around 100. She is complaining of a lot of pain and wants something stronger than Vicodin. PHYSICAL EXAMINATION: CHEST: Clear. CARDIAC: Normal. Blood pressure is normal at this time. IMPRESSION: 1. Uncontrolled hypertension. 2. Uncontrolled insulin-dependent diabetes mellitus. 3. Stage 5 chronic kidney disease. 4. Amblyopia. 5. Chronic pain. 6. Depression. PLAN: 1. Psychiatric consult. 2. Probably increase short-term insulin at night. MMODL / IJN: [id number] /
[2022-03-18 12:19] LABS: Calcium 9.8 mg/dL (8.4-10.2); Potassium 4.9 mmol/L (3.5-5.1); Total Bilirubin 0.4 mg/dL (0.2-1.3); Total Protein 6.4 g/dL (6.3-8.2)
[2022-03-18 12:28] LABS: Anisocytosis Slight; Basophils % (A) 1 %; Eosinophils # (A) 0.1 k/uL (0-0.7); Eosinophils % (A) 4 %; HCT 22.5 % (34.0-46.0); HGB 7.6 gm/dL (11.4-16.0); Hypochromasia Slight; Lymphocytes # (A) 0.4 k/uL (1.0-4.8); Lymphocytes % (A) 12 %; MCH 29.8 pg (25.0-35.0); MCHC 33.8 g/dL (31.0-37.0); MCV 88.2 fL (80.0-100.0); Monocytes # (A) 0.5 k/uL (0-1.0); Monocytes % (A) 12 %; Neutrophils # (A) 2.6 k/uL (1.3-7.7); Neutrophils % (A) 70 %; Platelet Count 178 k/uL (150-450); RBC 2.55 m/uL (3.80-5.40); RDW 16.5 % (11.5-15.5); WBC 3.8 k/uL (3.8-10.6)
[2022-03-18] MEDS: diphenhydrAMINE 50 MG/ML 1 ML VIAL IVP PRN (12:55)
[2022-03-18] MEDS: LORazepam 1 MG TAB PO PRN (12:55)
[2022-03-18 16:31] LABS: Glucose,Whole Blood 83 mg/dL (70-110)
[2022-03-18 20:13] LABS: Glucose,Whole Blood 43 mg/dL (70-110)
[2022-03-18] MEDS: MELATONIN 5 MG TABLET PO SCH (20:27)
[2022-03-18 20:29] LABS: Glucose,Whole Blood 42 mg/dL (70-110)
[2022-03-18] MEDS: DEXTROSE 50% SYRINGE 50 ML IVP PRN (20:29)
[2022-03-18 20:48] LABS: Glucose,Whole Blood 173 mg/dL (70-110)
--- NOTE | 2022-03-18 21:17 | PN ---
PROGRESS NOTE CHIEF COMPLAINT: Uncontrolled hypertension and diabetes. HISTORY OF PRESENT ILLNESS: This lady is feeling fine, but her blood sugars are going up to 700 late in the day and at night. PHYSICAL EXAMINATION: CHEST: Clear. CARDIAC: Normal. ABDOMEN: Soft and nontender. IMPRESSION: 1. Uncontrolled hypertension. 2. Uncontrolled diabetes. 3. Renal failure. PLAN: Add short-acting insulin with lunch, dinner, and at bedtime and see if we can avoid the extreme rise in blood sugars late in the day and at night. MMODL / IJN: [id number] /
[2022-03-19] LABS: Glucose,Whole Blood 341 mg/dL (70-110)
[2022-03-19] MEDS: INSULIN ASPART (NovoLOG) 100 UNIT/ML VIAL SQ SCH ×12 (00:05→22:16)
[2022-03-19] MEDS: LORazepam 1 MG TAB PO PRN ×2 (01:11→19:20)
[2022-03-19] MEDS: ONDANSETRON 4 MG/2 ML VIAL IVP PRN ×2 (04:52→15:17)
[2022-03-19] MEDS: HYDROcodone/APAP 5-325MG 1 EACH TAB PO PRN ×2 (04:53→15:17)
[2022-03-19 06:06] LABS: Glucose,Whole Blood 444 mg/dL (70-110)
[2022-03-19] MEDS: PANTOPRAZOLE 40 MG TABLET PO SCH (06:32)
[2022-03-19] MEDS: CALCIUM ACETATE 667 MG TAB PO SCH ×3 (06:32→17:05)
[2022-03-19] MEDS: carvediloL 12.5 MG TAB PO SCH ×2 (06:32→17:05)
[2022-03-19] MEDS: INSULIN DETEMIR (LEVEMIR) 100 UNIT/ML SYR SQ SCH (06:33)
[2022-03-19] MEDS: CYANOCOBALAMIN 500 MCG TAB PO SCH (09:18)
[2022-03-19] MEDS: buPROPion SR 150 MG TABLET.ER PO SCH ×2 (09:18→22:19)
[2022-03-19] MEDS: ESCITALOPRAM 20 MG TAB PO SCH (09:19)
[2022-03-19] MEDS: ASPIRIN 81 MG PO SCH (09:19)
--- NOTE | 2022-03-19 11:00 | P.PN ---
Subjective Patient is seen in follow-up for end-stage renal disease. She is maintained on hemodialysis on Monday and Monday schedule. Tolerated 4 L at a filtration yesterday. Requesting another treatment today. Blood sugars labile. Denies chest pain or shortness of breath. Vital signs are stable. General: No acute distress. HEENT: Head exam is unremarkable. LUNGS: Breath sounds decreased. HEART: Rate and Rhythm are regular. ABDOMEN: Soft, no distention. EXTREMITITES: No edema. Objective - Vital Signs Vital signs: Vital Signs Temp 99.2 F 03/19/22 04:00 Pulse 86 03/19/22 04:00 Resp 19 03/19/22 04:00 BP 179/114 03/19/22 04:00 Pulse Ox 95 03/19/22 04:00 FiO2 96 03/15/22 02:30 Intake & Output 03/18/22 03/19/22 03/19/22 18:59 06:59 18:59 Output Total 4000 Balance -4000 Weight 44.2 kg Output: Hemodialysis 4000 Other: Voiding Method Toilet Toilet - Labs CBC & Chem 7: 03/18/22 11:45 03/18/22 11:52 Labs: Abnormal Lab Results - Last 24 Hours (Table) 03/18/22 03/18/22 03/18/22 Range/Units 11:38 11:45 11:52 RBC 2.55 L (3.80-5.40) m/uL Hgb 7.6 L (11.4-16.0) gm/dL Hct 22.5 L (34.0-46.0) % RDW 16.5 H (11.5-15.5) % Lymphocytes # 0.4 L (1.0-4.8) k/uL Sodium 125 L (137-145) mmol/L Chloride 85 L (98-107) mmol/L Carbon Dioxide 20 L (22-30) mmol/L BUN 53 H (7-17) mg/dL Creatinine 4.62 H (0.52-1.04) mg/dL Glucose 617 H* (74-99) mg/dL POC Glucose (mg/dL) >600 H (70-110) mg/dL AST 76 H (14-36) U/L ALT 64 H (4-34) U/L Alkaline Phosphatase 485 H (38-126) U/L 03/18/22 03/18/22 03/18/22 Range/Units 20:11 20:27 20:46 RBC (3.80-5.40) m/uL Hgb (11.4-16.0) gm/dL Hct (34.0-46.0) % RDW (11.5-15.5) % Lymphocytes # (1.0-4.8) k/uL Sodium (137-145) mmol/L Chloride (98-107) mmol/L Carbon Dioxide (22-30) mmol/L BUN (7-17) mg/dL Creatinine (0.52-1.04) mg/dL Glucose (74-99) mg/dL POC Glucose (mg/dL) 43 L 42 L 173 H (70-110) mg/dL AST (14-36) U/L ALT (4-34) U/L Alkaline Phosphatase (38-126) U/L 03/18/22 03/19/22 Range/Units 23:58 06:04 RBC (3.80-5.40) m/uL Hgb (11.4-16.0) gm/dL Hct (34.0-46.0) % RDW (11.5-15.5) % Lymphocytes # (1.0-4.8) k/uL Sodium (137-145) mmol/L Chloride (98-107) mmol/L Carbon Dioxide (22-30) mmol/L BUN (7-17) mg/dL Creatinine (0.52-1.04) mg/dL Glucose (74-99) mg/dL POC Glucose (mg/dL) 341 H 444 H (70-110) mg/dL AST (14-36) U/L ALT (4-34) U/L Alkaline Phosphatase (38-126) U/L Assessment and Plan Plan: Assessment: 1. End-stage renal disease maintained on hemodialysis on Monday schedule. 2. Brittle diabetes. 3. Hypertension with chronic kidney disease. Blood pressure labile. 4. Anemia of chronic kidney disease. Iron deficiency noted. 5. 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 6. History of pericardial effusion. Plan: Short hemodialysis treatment today mostly for ultrafiltration. IV iron today. Add Aranesp.
[2022-03-19] MEDS: DEXTROSE 50% SYRINGE 50 ML IVP PRN (11:05)
[2022-03-19 11:11] LABS: Glucose,Whole Blood 41 mg/dL (70-110)
[2022-03-19 11:28] LABS: Glucose,Whole Blood 174 mg/dL (70-110)
[2022-03-19] MEDS ORDERED: SODIUM FERRIC GLUCONAT-SUCROSE 125 MG in SODIUM CHLORIDE 0.9% 100 ML IVPB ONE (12:00)
[2022-03-19] MEDS ORDERED: DARBEPOETIN ALFA 40 MCG/0.4 ML SYRINGE SQ SCH (12:00)
[2022-03-19 16:35] LABS: Metanephrine, Free 36 pg/mL (< OR = 57); Normetanephrine, Free 110 pg/mL (< OR = 148); Total, Free (MN + NMN) 146 pg/mL (< OR = 205)
[2022-03-19 16:43] LABS: Glucose,Whole Blood 81 mg/dL (70-110)
[2022-03-19] MEDS: diphenhydrAMINE 50 MG/ML 1 ML VIAL IVP PRN (19:20)
[2022-03-19 20:19] LABS: Glucose,Whole Blood 108 mg/dL (70-110)
[2022-03-19] MEDS: MELATONIN 5 MG TABLET PO SCH (22:15)
[2022-03-19 23:56] LABS: Glucose,Whole Blood 99 mg/dL (70-110)
[2022-03-20] MEDS: HYDROcodone/APAP 5-325MG 1 EACH TAB PO PRN ×4 (01:40→23:18)
[2022-03-20] MEDS: ONDANSETRON 4 MG/2 ML VIAL IVP PRN ×4 (01:40→23:19)
[2022-03-20 06:03] LABS: Glucose,Whole Blood 519 mg/dL (70-110)
[2022-03-20] MEDS: CALCIUM ACETATE 667 MG TAB PO SCH ×3 (06:52→17:01)
[2022-03-20] MEDS: INSULIN ASPART (NovoLOG) 100 UNIT/ML VIAL SQ SCH ×10 (06:52→20:12)
[2022-03-20] MEDS: PANTOPRAZOLE 40 MG TABLET PO SCH (06:52)
[2022-03-20] MEDS: INSULIN DETEMIR (LEVEMIR) 100 UNIT/ML SYR SQ SCH (06:52)
[2022-03-20] MEDS: carvediloL 12.5 MG TAB PO SCH ×2 (06:52→17:01)
[2022-03-20] MEDS: CYANOCOBALAMIN 500 MCG TAB PO SCH (09:21)
[2022-03-20] MEDS: buPROPion SR 150 MG TABLET.ER PO SCH ×2 (09:21→20:12)
[2022-03-20] MEDS: ASPIRIN 81 MG PO SCH (09:21)
[2022-03-20] MEDS: ESCITALOPRAM 20 MG TAB PO SCH (09:22)
--- NOTE | 2022-03-20 09:51 | P.PN ---
Subjective Patient is seen in follow-up for end-stage renal disease. She is maintained on hemodialysis on Monday and Monday schedule. Underwent extra treatment of hemodialysis yesterday mostly for ultrafiltration. No active complaints today. Hemodynamically stable. Blood sugars labile. High this morning. Vital signs are stable. General: No acute distress. HEENT: Head exam is unremarkable. LUNGS: Breath sounds decreased. HEART: Rate and Rhythm are regular. ABDOMEN: Soft, no distention. EXTREMITITES: No edema. Objective - Vital Signs Vital signs: Vital Signs Temp 98.3 F 03/20/22 04:00 Pulse 82 03/20/22 04:00 Resp 16 03/20/22 04:00 BP 141/82 03/20/22 04:00 Pulse Ox 94 L 03/20/22 08:00 FiO2 96 03/15/22 02:30 Intake & Output 03/19/22 03/20/22 03/20/22 18:59 06:59 18:59 Intake Total 120 Balance 120 Intake: Oral 120 Other: Voiding Method Toilet Toilet - Labs CBC & Chem 7: 03/18/22 11:45 03/18/22 11:52 Labs: Abnormal Lab Results - Last 24 Hours (Table) 03/19/22 03/19/22 03/20/22 Range/Units 11:02 11:26 06:00 POC Glucose (mg/dL) 41 L 174 H 519 H (70-110) mg/dL Assessment and Plan Plan: Assessment: 1. End-stage renal disease maintained on hemodialysis on Monday schedule. 2. Brittle diabetes. 3. Hypertension with chronic kidney disease. Blood pressure labile. Stable this morning. 4. Anemia of chronic kidney disease. Iron deficiency noted. On Aranesp. 5. 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 6. History of pericardial effusion. Plan: Hemodialysis tomorrow. Repeat IV iron today.
[2022-03-20] MEDS ORDERED: SODIUM FERRIC GLUCONAT-SUCROSE 125 MG in SODIUM CHLORIDE 0.9% 100 ML IVPB ONE (11:00)
[2022-03-20 11:54] LABS: Glucose,Whole Blood 212 mg/dL (70-110)
[2022-03-20 16:58] LABS: Glucose,Whole Blood 119 mg/dL (70-110)
[2022-03-20 19:45] LABS: Glucose,Whole Blood 199 mg/dL (70-110)
[2022-03-20] MEDS: MELATONIN 5 MG TABLET PO SCH (20:12)
--- NOTE | 2022-03-20 23:10 | PN ---
PROGRESS NOTE DATE OF SERVICE: 03/19/2022 CHIEF COMPLAINT: Uncontrolled hypertension and diabetes with renal failure. HISTORY OF PRESENT ILLNESS: This lady is doing fairly well. Blood sugars are still fluctuating, but they are under better control. They were up in the 200s, but then she had one today at 41. Blood pressures are also under fairly good control. She is going to be dialyzed later tonight. PHYSICAL EXAMINATION: CHEST: Clear. CARDIAC: Unchanged. ABDOMEN: Soft, nontender. IMPRESSION: 1. Uncontrolled hypertension. 2. Uncontrolled type 1 insulin-dependent diabetes mellitus. 3. Stage 5 chronic kidney disease. PLAN: No change in program today. MMODL / IJN: [id number] /
[2022-03-21 01:16] LABS: Glucose,Whole Blood 316 mg/dL (70-110)
[2022-03-21] MEDS: INSULIN ASPART (NovoLOG) 100 UNIT/ML VIAL SQ SCH ×11 (01:23→20:00)
[2022-03-21] MEDS: HYDROcodone/APAP 5-325MG 1 EACH TAB PO PRN ×3 (03:31→23:27)
[2022-03-21] MEDS: ONDANSETRON 4 MG/2 ML VIAL IVP PRN ×3 (05:21→23:22)
[2022-03-21 06:06] LABS: Glucose,Whole Blood 424 mg/dL (70-110)
[2022-03-21] MEDS: carvediloL 12.5 MG TAB PO SCH ×2 (06:20→17:25)
[2022-03-21] MEDS: CALCIUM ACETATE 667 MG TAB PO SCH ×3 (06:20→17:24)
[2022-03-21] MEDS: PANTOPRAZOLE 40 MG TABLET PO SCH (06:20)
[2022-03-21] MEDS: INSULIN DETEMIR (LEVEMIR) 100 UNIT/ML SYR SQ SCH (06:46)
[2022-03-21] MEDS: ESCITALOPRAM 20 MG TAB PO SCH (08:07)
[2022-03-21] MEDS: ASPIRIN 81 MG PO SCH (08:07)
[2022-03-21] MEDS: CYANOCOBALAMIN 500 MCG TAB PO SCH (08:07)
[2022-03-21] MEDS: buPROPion SR 150 MG TABLET.ER PO SCH ×2 (08:07→19:52)
[2022-03-21] MEDS: LORazepam 1 MG TAB PO PRN ×2 (08:07→23:27)
[2022-03-21] MEDS: diphenhydrAMINE 50 MG/ML 1 ML VIAL IVP PRN ×2 (08:08→19:53)
--- NOTE | 2022-03-21 09:16 | P.PN ---
Subjective Patient is seen in follow-up for end-stage renal disease. She is maintained on hemodialysis on Monday and Monday schedule. Has received extra hemodialysis treatments this admission. Blood sugars remain labile. Vital signs are stable. Tolerating dialysis well. General: No acute distress. HEENT: Head exam is unremarkable. LUNGS: Breath sounds decreased. HEART: Rate and Rhythm are regular. ABDOMEN: Soft, no distention. EXTREMITITES: No edema. Objective - Vital Signs Vital signs: Vital Signs Temp 98.3 F 03/21/22 08:06 Pulse 75 03/21/22 08:06 Resp 15 03/21/22 08:06 BP 129/71 03/21/22 08:06 Pulse Ox 99 03/21/22 08:06 FiO2 96 03/15/22 02:30 Intake & Output 03/20/22 03/21/22 03/21/22 18:59 06:59 18:59 Output Total 0 Balance 0 Weight 47.8 kg Output: Urine 0 Other: Voiding Method Toilet Toilet # Voids 3 - Labs CBC & Chem 7: 03/18/22 11:45 03/18/22 11:52 Labs: Abnormal Lab Results - Last 24 Hours (Table) 03/20/22 03/20/22 03/20/22 Range/Units 11:53 16:55 19:44 POC Glucose (mg/dL) 212 H 119 H 199 H (70-110) mg/dL 03/21/22 03/21/22 Range/Units 01:14 06:00 POC Glucose (mg/dL) 316 H 424 H (70-110) mg/dL Assessment and Plan Plan: Assessment: 1. End-stage renal disease maintained on hemodialysis on Monday schedule. 2. Brittle diabetes. 3. Hypertension with chronic kidney disease. Blood pressure labile. Stable this morning. 4. Anemia of chronic kidney disease. Iron deficiency noted. Status post IV iron. On Aranesp. 5. 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 6. History of pericardial effusion. Plan: Currently seen while undergoing hemodialysis. Next treatment on Monday.
[2022-03-21 11:50] LABS: Glucose,Whole Blood 155 mg/dL (70-110)
[2022-03-21 14:15] LABS: Glucose,Whole Blood 32 mg/dL (70-110)
[2022-03-21 14:28] LABS: Glucose,Whole Blood 41 mg/dL (70-110)
[2022-03-21 14:47] LABS: Glucose,Whole Blood 60 mg/dL (70-110)
[2022-03-21 15:02] LABS: Glucose,Whole Blood 36 mg/dL (70-110)
[2022-03-21 15:13] LABS: Glucose,Whole Blood 48 mg/dL (70-110)
[2022-03-21] MEDS: DEXTROSE 50% SYRINGE 50 ML IVP PRN (15:13)
[2022-03-21 15:35] LABS: Glucose,Whole Blood 162 mg/dL (70-110)
[2022-03-21 16:34] LABS: Glucose,Whole Blood 132 mg/dL (70-110)
[2022-03-21] MEDS: MELATONIN 5 MG TABLET PO SCH (19:53)
[2022-03-21] MEDS: LOPERAMIDE 2 MG CAP PO PRN (19:53)
[2022-03-21 19:59] LABS: Glucose,Whole Blood 253 mg/dL (70-110)
[2022-03-21 22:23] LABS: Glucose,Whole Blood 36 mg/dL (70-110)
[2022-03-21 22:35] LABS: Glucose,Whole Blood 55 mg/dL (70-110)
[2022-03-21 22:53] LABS: Glucose,Whole Blood 71 mg/dL (70-110)
[2022-03-22] MEDS ORDERED: HYDROmorphone 1 MG/ML 1 ML SYRINGE IVP STA (00:25)
[2022-03-22 01:58] LABS: Glucose,Whole Blood 412 mg/dL (70-110)
[2022-03-22 05:44] LABS: Glucose,Whole Blood >600 mg/dL (70-110)
--- NOTE | 2022-03-22 06:07 | PN ---
PROGRESS NOTE DATE OF SERVICE: 03/18/2022 CHIEF COMPLAINT: Uncontrolled hypertension and diabetes. HISTORY OF PRESENT ILLNESS: This lady's blood sugars are still fluctuating widely. Part of the problem is when her blood sugar goes down which it does occasionally, the nurses are withholding insulin and then she is going up into the 500 or 600s. PHYSICAL EXAMINATION: GENERAL: She is a little bit lethargic and she is dehydrated. CHEST: Clear. CARDIAC: Normal. IMPRESSION: 1. Stage 5 chronic kidney disease. 2. Uncontrolled blood sugars. 3. Uncontrolled hypertension. PLAN: Increase insulin management and be sure that she gets each dose timely. MMODL / IJN: [id number] /
--- NOTE | 2022-03-22 06:37 | PN ---
PROGRESS NOTE DATE OF SERVICE: 03/20/2022 CHIEF COMPLAINT: CKD, uncontrolled diabetes, and hypertension. HISTORY OF PRESENT ILLNESS: This lady is doing fairly well and fairly comfortable, but she is constipated. She is to be dialyzed again later today. Blood pressures and blood sugars continue to fluctuate greatly. PHYSICAL EXAMINATION: GENERAL: She is pale. Skin is dry. CHEST: Clear. CARDIAC: Normal. ABDOMEN: Soft, nontender. IMPRESSION: 1. Stage 5 chronic kidney disease, on dialysis. 2. Amblyopia. 3. Uncontrolled hypertension. 4. Uncontrolled diabetes. PLAN: Continue efforts to control her blood sugars better, although she has dropped quite low occasionally. MMODL / IJN: [id number] /
[2022-03-22] MEDS: INSULIN ASPART (NovoLOG) 100 UNIT/ML VIAL SQ SCH ×5 (06:48→21:25)
[2022-03-22] MEDS: INSULIN DETEMIR (LEVEMIR) 100 UNIT/ML SYR SQ SCH (06:48)
[2022-03-22] MEDS: CALCIUM ACETATE 667 MG TAB PO SCH ×3 (06:49→17:31)
[2022-03-22] MEDS: carvediloL 12.5 MG TAB PO SCH ×2 (06:49→17:33)
--- NOTE | 2022-03-22 07:13 | PN ---
PROGRESS NOTE DATE OF SERVICE: 03/21/2022 CHIEF COMPLAINT: Uncontrolled hypertension and diabetes. HISTORY OF PRESENT ILLNESS: This lady is about the same. She remains quite depressed. She was dialyzed last night. Blood sugars and blood pressures are fluctuating and within more reasonable parameters. PHYSICAL EXAMINATION: CHEST: Clear. CARDIAC: Normal. ABDOMEN: Soft. IMPRESSION: 1. Renal failure, stage 5. 2. Uncontrolled hypertension. 3. Uncontrolled type 1 insulin-dependent diabetes mellitus. PLAN: Increase Levemir at 3 units and continue to monitor. From my perspective, she can go home anytime she is cleared by Nephrology. MMODL / IJN: [id number] /
[2022-03-22] MEDS: ESCITALOPRAM 20 MG TAB PO SCH (08:43)
[2022-03-22] MEDS: ASPIRIN 81 MG PO SCH (08:43)
[2022-03-22] MEDS: buPROPion SR 150 MG TABLET.ER PO SCH ×2 (08:44→21:25)
[2022-03-22] MEDS: CYANOCOBALAMIN 500 MCG TAB PO SCH (08:44)
[2022-03-22] MEDS: ONDANSETRON 4 MG/2 ML VIAL IVP PRN ×2 (08:45→16:27)
[2022-03-22] MEDS: HYDROcodone/APAP 5-325MG 1 EACH TAB PO PRN ×2 (08:50→16:22)
[2022-03-22 09:02] LABS: Glucose,Whole Blood 529 mg/dL (70-110)
[2022-03-22 10:58] VITALS: BMI 17.1
--- NOTE | 2022-03-22 11:35 | P.PN ---
Subjective Patient is seen in follow-up for end-stage renal disease. She is maintained on hemodialysis on Monday and Monday schedule. Has received extra hemodialysis treatments this admission. Blood sugars remain labile High this morning.- Vital signs are stable. Tolerating dialysis well. General: No acute distress. HEENT: Head exam is unremarkable. LUNGS: Breath sounds decreased. HEART: Rate and Rhythm are regular. ABDOMEN: Soft, no distention. EXTREMITITES: No edema. Objective - Vital Signs Vital signs: Vital Signs Temp 98.2 F 03/22/22 08:31 Pulse 95 03/22/22 08:31 Resp 18 03/22/22 08:31 BP 169/90 03/22/22 08:31 Pulse Ox 99 03/22/22 08:31 FiO2 96 03/15/22 02:30 Intake & Output 03/21/22 03/22/22 03/22/22 18:59 06:59 18:59 Intake Total 536 Output Total 3000 Balance -2464 Weight 45.2 kg 45.2 kg Intake: Oral 236 Hemodialysis 300 Output: Hemodialysis 3000 Other: Voiding Method Toilet Toilet Toilet - Labs CBC & Chem 7: 03/18/22 11:45 03/22/22 06:18 Labs: Abnormal Lab Results - Last 24 Hours (Table) 03/21/22 03/21/22 03/21/22 Range/Units 11:49 14:12 14:26 Glucose (74-99) mg/dL POC Glucose (mg/dL) 155 H 32 L 41 L (70-110) mg/dL 03/21/22 03/21/22 03/21/22 Range/Units 14:45 14:59 15:11 Glucose (74-99) mg/dL POC Glucose (mg/dL) 60 L 36 L 48 L (70-110) mg/dL 03/21/22 03/21/22 03/21/22 Range/Units 15:34 16:31 19:57 Glucose (74-99) mg/dL POC Glucose (mg/dL) 162 H 132 H 253 H (70-110) mg/dL 03/21/22 03/21/22 03/22/22 Range/Units 22:19 22:34 01:56 Glucose (74-99) mg/dL POC Glucose (mg/dL) 36 L 55 L 412 H (70-110) mg/dL 03/22/22 03/22/22 03/22/22 Range/Units 05:41 06:18 09:00 Glucose 756 H* (74-99) mg/dL POC Glucose (mg/dL) >600 H 529 H (70-110) mg/dL Assessment and Plan Plan: Assessment: 1. End-stage renal disease maintained on hemodialysis on Monday schedule. 2. Brittle diabetes. 3. Hypertension with chronic kidney disease. Blood pressure labile. On the higher side this morning. 4. Anemia of chronic kidney disease. Iron deficiency noted. Status post IV iron. On Aranesp. 5. 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 6. History of pericardial effusion. 7. Volume overload. Tolerated 3 L ultrafiltration yesterday. Plan: Short hemodialysis treatment today and another treatment tomorrow per her outpatient schedule. Blood sugar control.
[2022-03-22 11:52] LABS: Glucose,Whole Blood 249 mg/dL (70-110)
[2022-03-22] MEDS ORDERED: DARBEPOETIN ALFA 60 MCG/0.3 ML SYRINGE SQ SCH (12:00)
--- NOTE | 2022-03-22 15:54 | CDI ---
Documentation Clarification Form Date: 03/17/2022 11:54:01 AM From: Nguyen Bertrand RN CCDS Admit Date: 03/14/2022 10:33:00 AM Patient Name: Patsy Pizano Visit Number: [id number] Discharge Date: ATTENTION: The Clinical Documentation Specialists (CDI) and [facility] Coding Staff appreciate your assistance in clarifying documentation. Please respond to the clarification below the line at the bottom and electronically sign. The CDI & [facility] Coding staff will review the response and follow-up if needed. Please note: Queries are made part of the Legal Health Record. If you have any questions, please contact the author of this message via ITS. Dr. Roque Buckner The patients principal diagnosis the diagnosis that was chiefly responsible for the admission - has not been clearly identified and clarification is requested. The patient presented with the following: Malaise, Near syncope, weakness and hyperglycemia. History/Risk Factors: 31-year-old female presents to the ED via EMS for weakness and being lightheaded. EMS verified B/P in the 60s on arrival . Medical History: Recent cardiac arrest, hypoxic respiratory failure, ESRD, Dialysis, CHF and DM1. Clinical Indicators: H&P, 03/13: Apparently, she was not feeling well and her blood pressure was high. She took an amlodipine and then it came down. She went to sleep. A little later she woke up was weak, lethargic and blood pressure was 60/37 with pulse of 47. In ED B/P went up to 86/48. Lab findings: 03/13 Wbc 4.4; Rbc 2.49; Hgb 7.3; NA 132; Chl 93; Carbon Dioxide 19; BUN 41; Cr 5.99; Glucose 407; Alk Phos 288; Total Protein 5.7; Acetone , Qual neg. CXR: 03/13 Cardiomegaly and pulmonary interstitial edema. Edema increased compared to old exam. Vital Signs: B/P 86/48; HR 50; Temp 97.9F Oral; RR 14; SpO2 93% ra Refrigeration Installer Note, 03/16: Generalized weakness secondary to hypotension, resolved, I felt that hypertension is mostly related to extensive list of blood pressure medications and possibly some component of hypovolemia related to her hyperglycemia. Treatment: 03/13 Coreg 25mg PO x 1; 03/13 Procardia xl 60mg PO x 1; 03/13 Coreg 25mgp PO BID; 03/13 Coreg 25mg PO x 1; Dialysis 03/13 and 03/14; 03/13 03/15 Apresoline 25mg PO TID. Consults: see above Refrigeration Installer In your professional opinion, can you please clarify which diagnosis, after study, was the reason chiefly responsible for the admission? [ ] Hypotension related to (please specify) [ ] Uncontrolled hypertension related to (please specify) [ ] Acute Diastolic CHF [ ] Other, please specify [ ] Unable to determine (Template Last Revised: July 2020) MTDD
[2022-03-22] MEDS: diphenhydrAMINE 50 MG/ML 1 ML VIAL IVP PRN ×2 (16:21→22:41)
[2022-03-22 16:33] LABS: Glucose,Whole Blood 134 mg/dL (70-110)
[2022-03-22] MEDS: LORazepam 1 MG TAB PO PRN (17:28)
[2022-03-22 20:09] LABS: Glucose,Whole Blood 325 mg/dL (70-110)
[2022-03-22 20:41] LABS: % Iron Saturation 17.01 (12.00-45.00)
[2022-03-22] MEDS: HYDROmorphone 1 MG/ML 1 ML SYRINGE IVP PRN (21:23)
[2022-03-22] MEDS: MELATONIN 5 MG TABLET PO SCH (21:25)
[2022-03-23 01:28] LABS: Glucose,Whole Blood 268 mg/dL (70-110)
[2022-03-23] MEDS: HYDROcodone/APAP 5-325MG 1 EACH TAB PO PRN (02:06)
[2022-03-23] MEDS: ONDANSETRON 4 MG/2 ML VIAL IVP PRN (02:07)
[2022-03-23] MEDS: HYDROmorphone 1 MG/ML 1 ML SYRINGE IVP PRN ×3 (04:35→21:31)
[2022-03-23 06:15] LABS: Glucose,Whole Blood 547 mg/dL (70-110)
[2022-03-23] MEDS: carvediloL 12.5 MG TAB PO SCH ×2 (06:51→17:32)
[2022-03-23] MEDS: CALCIUM ACETATE 667 MG TAB PO SCH ×3 (06:51→17:32)
[2022-03-23] MEDS: PANTOPRAZOLE 40 MG TABLET PO SCH (06:51)
[2022-03-23] MEDS: INSULIN ASPART (NovoLOG) 100 UNIT/ML VIAL SQ SCH ×5 (06:52→22:21)
[2022-03-23] MEDS: INSULIN DETEMIR (LEVEMIR) 100 UNIT/ML SYR SQ SCH (06:52)
[2022-03-23] MEDS: ESCITALOPRAM 20 MG TAB PO SCH (09:00)
[2022-03-23] MEDS: ASPIRIN 81 MG PO SCH (09:00)
[2022-03-23] MEDS: buPROPion SR 150 MG TABLET.ER PO SCH ×2 (09:00→21:31)
[2022-03-23] MEDS: CYANOCOBALAMIN 500 MCG TAB PO SCH (09:00)
[2022-03-23] MEDS: diphenhydrAMINE 50 MG/ML 1 ML VIAL IVP PRN ×2 (09:01→18:19)
--- NOTE | 2022-03-23 10:45 | P.PN ---
Subjective Patient is seen in follow-up for end-stage renal disease. She is maintained on hemodialysis on Monday and Monday schedule. Has received extra hemodialysis treatments this admission. Blood sugars remain labile High this morning. Vital signs are stable. No problems with dialysis. General: No acute distress. HEENT: Head exam is unremarkable. LUNGS: Breath sounds decreased. HEART: Rate and Rhythm are regular. ABDOMEN: Soft, no distention. EXTREMITITES: No edema. Objective - Vital Signs Vital signs: Vital Signs Temp 96.6 F L 03/23/22 09:05 Pulse 80 03/23/22 09:05 Resp 16 03/23/22 09:05 BP 129/74 03/23/22 09:05 Pulse Ox 94 L 03/23/22 09:05 FiO2 96 03/15/22 02:30 Intake & Output 03/22/22 03/23/22 03/23/22 18:59 06:59 18:59 Intake Total 540 Output Total 1999 Balance -1460 Weight 45.2 kg Intake: Oral 240 Hemodialysis 300 Output: Hemodialysis 1999 Other: Voiding Method Toilet Toilet - Labs CBC & Chem 7: 03/18/22 11:45 03/22/22 06:18 Labs: Abnormal Lab Results - Last 24 Hours (Table) 03/22/22 03/22/22 03/22/22 Range/Units 06:18 11:50 16:32 POC Glucose (mg/dL) 249 H 134 H (70-110) mg/dL Ferritin 3702.0 H (10.0-291.0) ng/mL 03/22/22 03/23/22 03/23/22 Range/Units 20:07 01:25 06:14 POC Glucose (mg/dL) 325 H 268 H 547 H (70-110) mg/dL Ferritin (10.0-291.0) ng/mL Assessment and Plan Plan: Assessment: 1. End-stage renal disease maintained on hemodialysis on Monday schedule. 2. Brittle diabetes. 3. Hypertension with chronic kidney disease. Blood pressure labile. Stable this morning. 4. Anemia of chronic kidney disease. Iron deficiency noted. Status post IV iron. On Aranesp. 5. 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 6. History of pericardial effusion. 7. Volume overload. Improved with ultrafiltration. Plan: Hemodialysis today. Blood sugar control.
--- NOTE | 2022-03-23 11:01 | MISC ---
MISCELLANOUS REPORT Uncontrolled hypertension and uncontrolled type 1 insulin-dependent diabetes mellitus. MMODL / IJN: [id number] /
[2022-03-23 11:44] LABS: Glucose,Whole Blood 109 mg/dL (70-110)
[2022-03-23] MEDS: LORazepam 1 MG TAB PO PRN (13:33)
[2022-03-23 16:34] LABS: Glucose,Whole Blood 203 mg/dL (70-110)
--- NOTE | 2022-03-23 18:23 | PN ---
PROGRESS NOTE DATE OF SERVICE: 03/22/2022 CHIEF COMPLAINT: Uncontrolled diabetes, hypertension, and low back pain. HISTORY OF PRESENT ILLNESS: This lady is complaining of a lot of back pain. Etiology for this is not clear. Blood sugars are still fluctuating widely. Blood pressure is high, but it is under better control. PHYSICAL EXAMINATION: FLANKS: Nontender. CHEST: Clear. CARDIAC: Normal. IMPRESSION: 1. Uncontrolled type 1 insulin-dependent diabetes mellitus. 2. Uncontrolled hypertension. 3. Stage 5 chronic kidney disease. 4. Low back pain. PLAN: 1. Re-adjust her insulin again today. 2. Increase her analgesic program. 3. Continue to try to obtain reasonable control of her blood sugars and blood pressure and continue dialysis in the meantime. MMODL / IJN: [id number] /
[2022-03-23 19:56] LABS: Glucose,Whole Blood 65 mg/dL (70-110)
[2022-03-23 20:17] LABS: Glucose,Whole Blood 77 mg/dL (70-110)
[2022-03-23] MEDS: MELATONIN 5 MG TABLET PO SCH (21:31)
[2022-03-23 21:34] LABS: Glucose,Whole Blood 99 mg/dL (70-110)
[2022-03-23] MEDS: LOPERAMIDE 2 MG CAP PO PRN (23:11)
[2022-03-23] MEDS: hydrALAZINE HCL 25 MG TAB PO SCH (23:57)
[2022-03-24 00:08] LABS: Glucose,Whole Blood 191 mg/dL (70-110)
[2022-03-24] MEDS: diphenhydrAMINE 50 MG/ML 1 ML VIAL IVP PRN ×2 (00:56→13:56)
[2022-03-24] MEDS: INSULIN ASPART (NovoLOG) 100 UNIT/ML VIAL SQ SCH ×9 (01:40→20:27)
--- NOTE | 2022-03-24 02:23 | MISC ---
MISCELLANOUS REPORT Uncontrolled hypertension due to chronic kidney disease. MMODL / IJN: [id number] /
[2022-03-24] MEDS: HYDROmorphone 1 MG/ML 1 ML SYRINGE IVP PRN ×3 (03:01→18:52)
[2022-03-24] MEDS: cloNIDine HCL 0.1 MG TAB PO SCH ×4 (04:32→20:29)
[2022-03-24 06:02] LABS: Glucose,Whole Blood 396 mg/dL (70-110)
[2022-03-24] MEDS: PANTOPRAZOLE 40 MG TABLET PO SCH (06:41)
[2022-03-24] MEDS: carvediloL 12.5 MG TAB PO SCH ×2 (06:41→17:07)
[2022-03-24] MEDS: CALCIUM ACETATE 667 MG TAB PO SCH ×3 (06:41→17:07)
[2022-03-24] MEDS: LOPERAMIDE 2 MG CAP PO PRN (06:41)
[2022-03-24] MEDS: INSULIN DETEMIR (LEVEMIR) 100 UNIT/ML SYR SQ SCH (06:53)
[2022-03-24 08:01] LABS: Anisocytosis Slight; HCT 27.9 % (34.0-46.0); Hypochromasia Slight; MCH 29.6 pg (25.0-35.0); MCV 89.6 fL (80.0-100.0); Platelet Count 236 k/uL (150-450); RBC 3.11 m/uL (3.80-5.40); RDW 17.8 % (11.5-15.5); WBC 7.3 k/uL (3.8-10.6)
[2022-03-24 08:02] LABS: Calcium 9.7 mg/dL (8.4-10.2); Potassium 4.3 mmol/L (3.5-5.1)
[2022-03-24 08:07] LABS: HGB 9.2 gm/dL (11.4-16.0)
--- NOTE | 2022-03-24 09:30 | P.PN ---
Subjective Patient is seen in follow-up for end-stage renal disease. She is maintained on hemodialysis on Monday and Monday schedule. Has received extra hemodialysis treatments this admission. Blood sugars remain labile blood pressure high last night from pain. Better this morning. General: No acute distress. HEENT: Head exam is unremarkable. LUNGS: Breath sounds decreased. HEART: Rate and Rhythm are regular. ABDOMEN: Soft, no distention. EXTREMITITES: No edema. Objective - Vital Signs Vital signs: Vital Signs Temp 97.6 F 03/24/22 03:33 Pulse 86 03/24/22 03:33 Resp 16 03/24/22 03:33 BP 169/88 03/24/22 06:35 Pulse Ox 99 03/24/22 08:14 FiO2 96 03/15/22 02:30 Intake & Output 03/23/22 03/24/22 03/24/22 18:59 06:59 18:59 Intake Total 780 118 Output Total 2200 Balance -1420 118 Weight 45 kg Intake: Oral 480 118 Hemodialysis 300 Output: Hemodialysis 2200 Other: Voiding Method Toilet - Labs CBC & Chem 7: 03/24/22 07:15 03/24/22 07:15 Labs: Abnormal Lab Results - Last 24 Hours (Table) 03/23/22 03/23/22 03/24/22 Range/Units 16:33 19:55 00:06 RBC (3.80-5.40) m/uL Hgb (11.4-16.0) gm/dL Hct (34.0-46.0) % RDW (11.5-15.5) % Sodium (137-145) mmol/L Chloride (98-107) mmol/L Carbon Dioxide (22-30) mmol/L BUN (7-17) mg/dL Creatinine (0.52-1.04) mg/dL Glucose (74-99) mg/dL POC Glucose (mg/dL) 203 H 65 L 191 H (70-110) mg/dL 03/24/22 03/24/22 03/24/22 Range/Units 06:00 07:15 07:15 RBC 3.11 L (3.80-5.40) m/uL Hgb 9.2 L D (11.4-16.0) gm/dL Hct 27.9 L (34.0-46.0) % RDW 17.8 H (11.5-15.5) % Sodium 131 L (137-145) mmol/L Chloride 93 L (98-107) mmol/L Carbon Dioxide 21 L (22-30) mmol/L BUN 33 H (7-17) mg/dL Creatinine 3.52 H (0.52-1.04) mg/dL Glucose 454 H (74-99) mg/dL POC Glucose (mg/dL) 396 H (70-110) mg/dL Assessment and Plan Plan: Assessment: 1. End-stage renal disease maintained on hemodialysis on Monday schedule. 2. Brittle diabetes. 3. Hypertension with chronic kidney disease. Blood pressure labile. Exacerbated by pain. 4. Anemia of chronic kidney disease. Iron deficiency noted. Status post IV iron. On Aranesp. 5. 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 6. History of pericardial effusion. 7. Volume overload. Improved with ultrafiltration. Plan: Hemodialysis tomorrow. Blood sugar control. Pain control. Clonidine added for blood pressure control. Hold for systolic blood pressure less than 120. Stop hydralazine due to history of pericardial effusion.
[2022-03-24] MEDS: buPROPion SR 150 MG TABLET.ER PO SCH ×2 (09:34→20:25)
[2022-03-24] MEDS: ESCITALOPRAM 20 MG TAB PO SCH (09:34)
[2022-03-24] MEDS: CYANOCOBALAMIN 500 MCG TAB PO SCH (09:34)
[2022-03-24] MEDS: ASPIRIN 81 MG PO SCH (09:36)
[2022-03-24] MEDS: hydrALAZINE HCL 25 MG TAB PO SCH (10:33)
[2022-03-24 11:40] LABS: Glucose,Whole Blood 88 mg/dL (70-110)
[2022-03-24 13:44] LABS: Glucose,Whole Blood 29 mg/dL (70-110)
[2022-03-24] MEDS: DEXTROSE 50% SYRINGE 50 ML IVP PRN ×2 (13:45)
[2022-03-24 14:45] LABS: Glucose,Whole Blood 44 mg/dL (70-110)
[2022-03-24 15:08] LABS: Glucose,Whole Blood 46 mg/dL (70-110)
[2022-03-24 15:29] LABS: Glucose,Whole Blood 94 mg/dL (70-110)
[2022-03-24 16:41] LABS: Glucose,Whole Blood 53 mg/dL (70-110)
[2022-03-24 16:57] LABS: Glucose,Whole Blood 86 mg/dL (70-110)
[2022-03-24 19:44] LABS: Glucose,Whole Blood 264 mg/dL (70-110)
[2022-03-24] MEDS: MELATONIN 5 MG TABLET PO SCH (20:25)
[2022-03-24] MEDS: LORazepam 1 MG TAB PO PRN (20:25)
--- NOTE | 2022-03-24 21:21 | PN ---
PROGRESS NOTE DATE OF SERVICE: 03/23/2022 CHIEF COMPLAINT: Uncontrolled hypertension and diabetes. HISTORY OF PRESENT ILLNESS: This lady's blood pressures are a little bit more stable. However, her blood sugars are very erratic and still running very high at night. PHYSICAL EXAMINATION: CHEST: Clear. CARDIAC: Normal. She is very drowsy at this time. IMPRESSION: Uncontrolled diabetes and hypertension with renal failure. PLAN: Start 6 units of NovoLog at bedtime to see if this helps her down during the night. MMODL / IJN: [id number] /
[2022-03-25] MEDS: HYDROmorphone 1 MG/ML 1 ML SYRINGE IVP PRN ×4 (00:52→18:12)
[2022-03-25 02:40] LABS: Glucose,Whole Blood 320 mg/dL (70-110)
[2022-03-25 05:57] LABS: Glucose,Whole Blood >600 mg/dL (70-110)
[2022-03-25 06:00] LABS: Glucose,Whole Blood >600 mg/dL (70-110)
[2022-03-25] MEDS: PANTOPRAZOLE 40 MG TABLET PO SCH (06:17)
[2022-03-25] MEDS: carvediloL 12.5 MG TAB PO SCH ×2 (06:17→14:53)
[2022-03-25] MEDS: CALCIUM ACETATE 667 MG TAB PO SCH ×3 (09:18→14:53)
[2022-03-25] MEDS: INSULIN DETEMIR (LEVEMIR) 100 UNIT/ML SYR SQ SCH (09:29)
[2022-03-25] MEDS: diphenhydrAMINE 50 MG/ML 1 ML VIAL IVP PRN ×3 (09:30→21:10)
[2022-03-25] MEDS: ONDANSETRON 4 MG/2 ML VIAL IVP PRN (09:30)
[2022-03-25] MEDS: buPROPion SR 150 MG TABLET.ER PO SCH (09:31)
[2022-03-25] MEDS: cloNIDine HCL 0.1 MG TAB PO SCH ×3 (09:31→21:10)
[2022-03-25] MEDS: INSULIN ASPART (NovoLOG) 100 UNIT/ML VIAL SQ SCH ×7 (09:31→21:11)
[2022-03-25] MEDS: CYANOCOBALAMIN 500 MCG TAB PO SCH (09:31)
[2022-03-25] MEDS: ASPIRIN 81 MG PO SCH (09:31)
[2022-03-25] MEDS: ESCITALOPRAM 20 MG TAB PO SCH (09:31)
--- NOTE | 2022-03-25 09:39 | P.PN ---
Subjective Patient is seen in follow-up for end-stage renal disease. She is maintained on hemodialysis on Monday and Monday schedule. Has received extra hemodialysis treatments this admission. Blood pressure and blood sugars very labile. General: No acute distress. HEENT: Head exam is unremarkable. LUNGS: Breath sounds decreased. HEART: Rate and Rhythm are regular. ABDOMEN: Soft, no distention. EXTREMITITES: No edema. Objective - Vital Signs Vital signs: Vital Signs Temp 98.1 F 03/25/22 08:00 Pulse 101 H 03/25/22 08:00 Resp 18 03/25/22 08:00 BP 144/85 03/25/22 08:00 Pulse Ox 95 03/25/22 08:00 FiO2 96 03/15/22 02:30 Intake & Output 03/24/22 03/25/22 03/25/22 18:59 06:59 18:59 Intake Total 354 0 Balance 354 0 Weight 47.7 kg Intake: Oral 354 0 Other: Voiding Method Toilet Toilet - Labs CBC & Chem 7: 03/24/22 07:15 03/24/22 07:15 Labs: Abnormal Lab Results - Last 24 Hours (Table) 03/24/22 03/24/22 03/24/22 Range/Units 13:38 14:43 15:02 POC Glucose (mg/dL) 29 L 44 L 46 L (70-110) mg/dL 03/24/22 03/24/22 03/25/22 Range/Units 16:37 19:42 02:38 POC Glucose (mg/dL) 53 L 264 H 320 H (70-110) mg/dL 03/25/22 03/25/22 Range/Units 05:56 05:58 POC Glucose (mg/dL) >600 H >600 H (70-110) mg/dL Assessment and Plan Plan: Assessment: 1. End-stage renal disease maintained on hemodialysis on Monday schedule. 2. Brittle diabetes. 3. Hypertension with chronic kidney disease. Blood pressure labile. Stable this morning. 4. Anemia of chronic kidney disease. Iron deficiency noted. Status post IV iron. On Aranesp. 5. 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 6. History of pericardial effusion. 7. Volume overload. Improved with ultrafiltration. Plan: Hemodialysis today. Blood sugar control. Avoid hydralazine and minoxidil due to history of pericardial effusion. Avoid ACEi/ARB and aldactone due to hyperkalemia.
[2022-03-25 11:30] LABS: Glucose,Whole Blood 147 mg/dL (70-110)
[2022-03-25] MEDS: LORazepam 1 MG TAB PO PRN (12:33)
[2022-03-25 16:33] LABS: Glucose,Whole Blood 138 mg/dL (70-110)
[2022-03-25 17:04] LABS: Albumin 4.4 g/dL (3.5-5.0); Calcium 9.1 mg/dL (8.4-10.2); Potassium 4.6 mmol/L (3.5-5.1); Total Bilirubin 0.3 mg/dL (0.2-1.3); Total Protein 7.1 g/dL (6.3-8.2)
--- NOTE | 2022-03-25 17:26 | P.PN ---
Subjective Progress Note Date: 03/25/22 31-year-old female patient with a known history of type 1 diabetes mellitus, end-stage renal disease receiving hemodialysis Monday, CVA/TIA, hypertension, diabetic retinopathy/legally blind, restless leg syndrome diabetic neuropathy, anxiety/depression. She was also admitted last month for an acute cardiopulmonary arrest secondary to fluid overload and hyperkalemia requiring brief CPR and intubation mechanical ventilatory support. She subsequently required covered and was discharged home on 03/01/2022. She represented to the emergency room early on 03/13/2022 with complaints of weakness, dizziness and lightheadedness. She had received hemodialysis as scheduled. She had been r unning hypertensive. She takes Coreg and Procardia at home and her blood pressure was 180s and a few hours later was 120 systolically. She woke up around midnight feeling weak and her pressure was in the 60s and she presented here for the same. She was admitted to the regular medical floor. This morning they called a rapid response team on her for her blood pressure dropping from the 170s to the 90s systolically. She continued to have low blood pressure. She did receive her blood pressure medicines yesterday but were held this morning. We are consulted for possible transfer to the ICU. Chest x-ray does reveal some fluid volume overload/congestive heart failure. White count 4.4. Hemoglobin 7.3. Platelets 192. D-dimer 0.58. Sodium 132. Potassium 5.0. Bicarb 19. Anion gap 20. BUN 41. Creatinine 5.99. Glucose 197. AST 29. ALT 28. Presenting glucose was 451. Acetone negative. She is continued on Levemir. During our evaluation she was alert and oriented 3. She was having some issues with dizziness and lightheadedness. No chest pain or palpitations. No shortness of breath. She is maintaining O2 saturations at 99% on 3 L nasal cannula. Systolic blood pressure in the 70s. Heart rate in the 50s. She is initiated on fluid bolus of 500 mL and if no improvement will receive a second 500 mL. She was transferred to the cardiac stepdown unit for closer observat ion. Objective - Vital Signs Vital signs: Vital Signs Temp 98.4 F 03/25/22 12:00 Pulse 98 03/25/22 12:00 Resp 18 03/25/22 12:00 BP 167/89 03/25/22 12:00 Pulse Ox 96 03/25/22 12:00 FiO2 96 03/15/22 02:30 Intake & Output 03/24/22 03/25/22 03/25/22 18:59 06:59 18:59 Intake Total 354 0 Balance 354 0 Weight 47.7 kg Intake: Oral 354 0 Other: Voiding Method Toilet Toilet - Exam Head: Atraumatic, normocephalic. HEENT:[Neck is supple.] [No neck masses.] [No thyromegaly.] [No JVD.] Chest: [Clear throughout, no crackles, no rhonchi, no wheezes.] Cardiac Exam: [Normal S1 and S2, no S3 gallop, no murmur.] Abdomen: [Soft, nontender, no megaly, no rebound, no guarding, normal bowel sounds.] Extremities: [No clubbing, no edema, no cyanosis.] Neurological Exam: [No focal neurologic deficit.] Alert and oriented 3. Psychiatric: Normal mood, affect and normal mental status examination. Skin: No rashes. - Labs CBC & Chem 7: 03/24/22 07:15 03/25/22 16:20 Labs: Abnormal Lab Results - Last 24 Hours (Table) 03/24/22 03/24/22 03/24/22 Range/Units 13:38 14:43 15:02 POC Glucose (mg/dL) 29 L 44 L 46 L (70-110) mg/dL 03/24/22 03/24/22 03/25/22 Range/Units 16:37 19:42 02:38 POC Glucose (mg/dL) 53 L 264 H 320 H (70-110) mg/dL 03/25/22 03/25/22 03/25/22 Range/Units 05:56 05:58 11:29 POC Glucose (mg/dL) >600 H >600 H 147 H (70-110) mg/dL Assessment and Plan Assessment: Generalized weakness, dizziness secondary to hypotension, resolved, I felt that hypertension is mostly related to extensive list of blood pressure medications and possibly some component of hypovolemia related to her hyperglycemia. History of hypertension on multiple antihypertensive medications Recent admission for cardiac arrest and acute hypoxemic respiratory failure secondary to hyperkalemia and fluid volume overload End-stage renal disease on hemodialysis, Monday Type 1 diabetes, on Levemir and NovoLog Diabetic neuropathy Diabetic retinopathy/legal blindness Chronic anemia of chronic disease History of CVA/TIA History of COVID-19 infection May 2021 Recommendation: Consider discharge planning , cleared from our perspective for discharge if cleared by other physicians and consultants Transfer to a regular medical floor
[2022-03-25 19:49] LABS: Glucose,Whole Blood 225 mg/dL (70-110)
[2022-03-25] MEDS: MELATONIN 5 MG TABLET PO SCH (21:10)
--- NOTE | 2022-03-25 23:55 | PN ---
PROGRESS NOTE DATE OF SERVICE: 03/24/2022 CHIEF COMPLAINT: Chronic renal failure, amblyopia, and uncontrolled diabetes and hypertension. HISTORY OF PRESENT ILLNESS: This lady continues to complain a lot of back pain. She is still having difficulty with blood sugars as well as blood pressure. Last night, her blood pressure went up over 200. Sugars have been down quite low today and we await to see what happens tonight. PHYSICAL EXAMINATION: CHEST: Clear. CARDIAC: Demonstrated sinus rhythm. ABDOMEN: Soft. IMPRESSION: 1. Uncontrolled diabetes. 2. Uncontrolled hypertension. 3. Renal failure. 4. Amblyopia. 5. Depression. PLAN: Continue to try to control her hypertension and type 1 diabetes mellitus a little bit more effectively before she goes home. MMODL / IJN: [id number] /
[2022-03-26] MEDS: HYDROmorphone 1 MG/ML 1 ML SYRINGE IVP PRN ×5 (00:06→23:22)
[2022-03-26] MEDS: buPROPion SR 150 MG TABLET.ER PO SCH ×3 (00:07→21:11)
[2022-03-26 00:13] LABS: Glucose,Whole Blood 117 mg/dL (70-110)
[2022-03-26] MEDS: diphenhydrAMINE 50 MG/ML 1 ML VIAL IVP PRN ×4 (03:04→21:11)
[2022-03-26 03:10] LABS: Glucose,Whole Blood 221 mg/dL (70-110)
[2022-03-26] MEDS: INSULIN ASPART (NovoLOG) 100 UNIT/ML VIAL SQ SCH ×8 (03:16→21:06)
[2022-03-26 06:00] LABS: Glucose,Whole Blood 239 mg/dL (70-110)
[2022-03-26] MEDS: PANTOPRAZOLE 40 MG TABLET PO SCH (06:36)
[2022-03-26] MEDS: carvediloL 12.5 MG TAB PO SCH ×2 (06:36→16:55)
[2022-03-26] MEDS: INSULIN DETEMIR (LEVEMIR) 100 UNIT/ML SYR SQ SCH (06:36)
[2022-03-26] MEDS: CALCIUM ACETATE 667 MG TAB PO SCH ×3 (06:36→16:55)
[2022-03-26] MEDS: ASPIRIN 81 MG PO SCH (08:17)
[2022-03-26] MEDS: CYANOCOBALAMIN 500 MCG TAB PO SCH (08:17)
[2022-03-26] MEDS: ESCITALOPRAM 20 MG TAB PO SCH (08:17)
[2022-03-26] MEDS: LORazepam 1 MG TAB PO PRN ×2 (08:51→18:10)
[2022-03-26] MEDS ORDERED: DARBEPOETIN ALFA 60 MCG/0.3 ML SYRINGE SQ SCH (09:00)
--- NOTE | 2022-03-26 10:32 | P.PN ---
Subjective Patient is seen for follow-up for end-stage renal disease. Schedule for extra treatment of hemodialysis today for volume overload. Blood pressure was low yesterday and patient had 2 L of ultrafiltration. Objective - Vital Signs Vital signs: Vital Signs Temp 98.0 F 03/26/22 08:14 Pulse 86 03/26/22 08:14 Resp 16 03/26/22 08:14 BP 159/85 03/26/22 08:14 Pulse Ox 97 03/26/22 08:14 FiO2 96 03/15/22 02:30 Intake & Output 03/25/22 03/26/22 03/26/22 18:59 06:59 18:59 Intake Total 236 Output Total 1999 Balance -1764 Intake: Oral 236 Output: Hemodialysis 1999 Other: Voiding Method Toilet Toilet Toilet - Exam Awake, comfortable, not in any acute distress Alert oriented 3 Examination of the heart S1 and S2 Examination of the lungs bilateral breath sounds are heard Abdomen is soft nontender Examination lower extremities shows trace edema bilaterally 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 - Labs CBC & Chem 7: 03/24/22 07:15 03/25/22 16:20 Labs: Abnormal Lab Results - Last 24 Hours (Table) 03/25/22 03/25/22 03/25/22 Range/Units 11:29 16:20 16:32 BUN 27 H (7-17) mg/dL Creatinine 2.83 H (0.52-1.04) mg/dL Glucose 127 H (74-99) mg/dL POC Glucose (mg/dL) 147 H 138 H (70-110) mg/dL AST 64 H (14-36) U/L ALT 82 H (4-34) U/L Alkaline Phosphatase 533 H (38-126) U/L 03/25/22 03/26/22 03/26/22 Range/Units 19:48 00:12 03:08 BUN (7-17) mg/dL Creatinine (0.52-1.04) mg/dL Glucose (74-99) mg/dL POC Glucose (mg/dL) 225 H 117 H 221 H (70-110) mg/dL AST (14-36) U/L ALT (4-34) U/L Alkaline Phosphatase (38-126) U/L 03/26/22 Range/Units 05:59 BUN (7-17) mg/dL Creatinine (0.52-1.04) mg/dL Glucose (74-99) mg/dL POC Glucose (mg/dL) 239 H (70-110) mg/dL AST (14-36) U/L ALT (4-34) U/L Alkaline Phosphatase (38-126) U/L Assessment and Plan Assessment: 1. ESRD on dialysis Monday since February 2020 with a fistula in the left arm. 2. Hypertension, partly volume sensitive 3. Volume overload currently improved 4. 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 Anemia hemoglobin 8.0, iron replete maintained on Aranesp. No active bleeding noted 6. Brittle diabetes Plan: Maintain hemodialysis on Monday schedule with patient receiving an extra treatment today.
[2022-03-26] MEDS: cloNIDine HCL 0.1 MG TAB PO SCH ×3 (11:25→23:22)
--- NOTE | 2022-03-26 15:00 | P.PN ---
Subjective Progress Note Date: 03/26/22 Principal diagnosis: Hyperglycemia/uncontrolled diabetes mellitus Generalized weakness/debility Chronic kidney disease/HD 31-year-old female patient with a known history of type 1 diabetes mellitus, end-stage renal disease receiving hemodialysis Monday, CVA/TIA, hypertension, diabetic retinopathy/legally blind, restless leg syndrome diabetic neuropathy, anxiety/depression. She was also admitted last month for an acute cardiopulmonary arrest secondary to fluid overload and hyperkalemia requiring brief CPR and intubation mechanical ventilatory support. She subsequently required covered and was discharged home on 03/01/2022. She represented to the emergency room early on 03/13/2022 with complaints of weakness, dizziness and lightheadedness. She had received hemodialysis as scheduled. She had been running hypertensive. She takes Coreg and Procardia at home and her blood pressure was 180s and a few hours later was 120 systolically. She woke up around midnight feeling weak and her pressure was in the 60s and she presented here for the same. She was admitted to the regular medical floor. This morning they called a rapid response team on her for her blood pressure dropping from the 170s to the 90s systolically. She continued to have low blood pressure. She did receive her blood pressure medicines yesterday but were held this morning. We are consulted for possible transfer to the ICU. Chest x-ray does reveal some fluid volume overload/congestive heart failure. White count 4.4. Hemoglobin 7.3. Platelets 192. D-dimer 0.58. Sodium 132. Potassium 5.0. Bicarb 19. Anion gap 20. BUN 41. Creatinine 5.99. Glucose 197. AST 29. ALT 28. Presenting glucose was 451. Acetone negative. She is continued on Levemir. During our evaluation she was alert and oriented 3. She was having some issues with dizziness and lightheadedness. No chest pain or palpitations. No shortness of breath. She is maintaining O2 saturations at 99% on 3 L nasal cannula. Systolic blood pressure in the 70s. Heart rate in the 50s. She is initiated on fluid bolus of 500 mL and if no improvement will receive a second 500 mL. She was transferred to the cardiac stepdown unit for closer observation. 03/26/2022 Patient is seen sitting up in bed; continues to report abdominal pain; lipase downtrending but no let's have been obtained in past 24 hours - We will monitor CBC Hyperglycemia; blood glucose remains elevated on current regimen; we will plan to monitor closely; increase Levemir up to 25 daily and if at any further chest - Possible discharge in next 24 hours Objective - Vital Signs Vital signs: Vital Signs Temp 98.0 F 03/26/22 08:14 Pulse 86 03/26/22 08:14 Resp 16 03/26/22 08:14 BP 159/85 03/26/22 08:14 Pulse Ox 97 03/26/22 08:14 FiO2 96 03/15/22 02:30 Intake & Output 03/25/22 03/26/22 03/26/22 18:59 06:59 18:59 Intake Total 236 Output Total 1999 Balance -1764 Intake: Oral 236 Output: Hemodialysis 1999 Other: Voiding Method Toilet Toilet - Exam Head: Atraumatic, normocephalic. HEENT:[Neck is supple.] [No neck masses.] [No thyromegaly.] [No JVD.] Chest: [Clear throughout, no crackles, no rhonchi, no wheezes.] Cardiac Exam: [Normal S1 and S2, no S3 gallop, no murmur.] Abdomen: [Soft, nontender, no megaly, no rebound, no guarding, normal bowel sounds.] Extremities: [No clubbing, no edema, no cyanosis.] Neurological Exam: [No focal neurologic deficit.] Alert and oriented 3. Psychiatric: Normal mood, affect and normal mental status examination. Skin: No rashes. - Labs CBC & Chem 7: 03/24/22 07:15 03/25/22 16:20 Labs: Abnormal Lab Results - Last 24 Hours (Table) 03/25/22 03/25/22 03/25/22 Range/Units 11:29 16:20 16:32 BUN 27 H (7-17) mg/dL Creatinine 2.83 H (0.52-1.04) mg/dL Glucose 127 H (74-99) mg/dL POC Glucose (mg/dL) 147 H 138 H (70-110) mg/dL AST 64 H (14-36) U/L ALT 82 H (4-34) U/L Alkaline Phosphatase 533 H (38-126) U/L 03/25/22 03/26/22 03/26/22 Range/Units 19:48 00:12 03:08 BUN (7-17) mg/dL Creatinine (0.52-1.04) mg/dL Glucose (74-99) mg/dL POC Glucose (mg/dL) 225 H 117 H 221 H (70-110) mg/dL AST (14-36) U/L ALT (4-34) U/L Alkaline Phosphatase (38-126) U/L 03/26/22 Range/Units 05:59 BUN (7-17) mg/dL Creatinine (0.52-1.04) mg/dL Glucose (74-99) mg/dL POC Glucose (mg/dL) 239 H (70-110) mg/dL AST (14-36) U/L ALT (4-34) U/L Alkaline Phosphatase (38-126) U/L Assessment and Plan Assessment: Generalized weakness, dizziness secondary to hypotension, resolved, I felt that hypertension is mostly related to extensive list of blood pressure medications and possibly some component of hypovolemia related to her hyperglycemia. History of hypertension on multiple antihypertensive medications Recent admission for cardiac arrest and acute hypoxemic respiratory failure secondary to hyperkalemia and fluid volume overload End-stage renal disease on hemodialysis, Monday Type 1 diabetes, on Levemir and NovoLog Diabetic neuropathy Diabetic retinopathy/legal blindness Chronic anemia of chronic disease History of CVA/TIA History of COVID-19 infection May 2021 Recommendation: Consider discharge planning , cleared from our perspective for discharge if cleared by other physicians and consultants Transfer to a regular medical floor
[2022-03-26 15:56] LABS: Anisocytosis Slight; Basophils # (A) 0.1 k/uL (0-0.2); Basophils % (A) 1 %; Eosinophils # (A) 0.3 k/uL (0-0.7); Eosinophils % (A) 6 %; HCT 25.8 % (34.0-46.0); HGB 8.7 gm/dL (11.4-16.0); Hypochromasia Slight; Lymphocytes # (A) 0.8 k/uL (1.0-4.8); Lymphocytes % (A) 17 %; MCH 30.2 pg (25.0-35.0); MCHC 33.6 g/dL (31.0-37.0); MCV 89.8 fL (80.0-100.0); Mean Platelet Volume 8.7; Monocytes # (A) 0.3 k/uL (0-1.0); Monocytes % (A) 7 %; Neutrophils # (A) 2.9 k/uL (1.3-7.7); Neutrophils % (A) 65 %; Platelet Count 232 k/uL (150-450); RBC 2.87 m/uL (3.80-5.40); RDW 18.3 % (11.5-15.5); WBC 4.5 k/uL (3.8-10.6)
[2022-03-26 16:13] LABS: Potassium 4.9 mmol/L (3.5-5.1)
[2022-03-26 16:30] LABS: Calcium 9.5 mg/dL (8.4-10.2)
[2022-03-26 16:52] LABS: Glucose,Whole Blood 120 mg/dL (70-110)
[2022-03-26 18:27] LABS: Glucose,Whole Blood 59 mg/dL (70-110)
[2022-03-26 18:49] LABS: Glucose,Whole Blood 65 mg/dL (70-110)
[2022-03-26 18:54] LABS: Glucose,Whole Blood 85 mg/dL (70-110)
[2022-03-26 19:37] LABS: Glucose,Whole Blood 55 mg/dL (70-110)
[2022-03-26 19:51] LABS: Glucose,Whole Blood 66 mg/dL (70-110)
[2022-03-26 20:05] LABS: Glucose,Whole Blood 69 mg/dL (70-110)
[2022-03-26 20:19] LABS: Glucose,Whole Blood 85 mg/dL (70-110)
[2022-03-26] MEDS: MELATONIN 5 MG TABLET PO SCH (21:10)
[2022-03-26 23:24] LABS: Glucose,Whole Blood 218 mg/dL (70-110)
[2022-03-27] MEDS ORDERED: hydrALAZINE HCL 20 MG/ML 1 ML VIAL IVP PRN (01:02)
[2022-03-27] MEDS: diphenhydrAMINE 50 MG/ML 1 ML VIAL IVP PRN ×3 (02:04→14:46)
[2022-03-27] MEDS: LORazepam 1 MG TAB PO PRN (02:04)
[2022-03-27 05:14] LABS: Glucose,Whole Blood 486 mg/dL (70-110)
[2022-03-27] MEDS: HYDROmorphone 1 MG/ML 1 ML SYRINGE IVP PRN ×2 (05:14→11:14)
[2022-03-27] MEDS: INSULIN ASPART (NovoLOG) 100 UNIT/ML VIAL SQ SCH ×5 (05:17→13:08)
[2022-03-27 06:52] LABS: Glucose,Whole Blood 593 mg/dL (70-110)
[2022-03-27] MEDS: PANTOPRAZOLE 40 MG TABLET PO SCH (06:57)
[2022-03-27] MEDS: ONDANSETRON 4 MG/2 ML VIAL IVP PRN ×2 (06:57→13:58)
[2022-03-27] MEDS: carvediloL 12.5 MG TAB PO SCH (06:57)
[2022-03-27 08:14] LABS: Glucose,Whole Blood 467 mg/dL (70-110)
[2022-03-27] MEDS: ASPIRIN 81 MG PO SCH (08:14)
[2022-03-27] MEDS: CALCIUM ACETATE 667 MG TAB PO SCH ×2 (08:14→13:24)
[2022-03-27] MEDS: CYANOCOBALAMIN 500 MCG TAB PO SCH (08:14)
[2022-03-27] MEDS: INSULIN DETEMIR (LEVEMIR) 100 UNIT/ML SYR SQ SCH (08:14)
[2022-03-27] MEDS: cloNIDine HCL 0.1 MG TAB PO SCH (08:20)
[2022-03-27 10:07] VITALS: RESP 18
[2022-03-27] MEDS: ESCITALOPRAM 20 MG TAB PO SCH (11:14)
[2022-03-27] MEDS: buPROPion SR 150 MG TABLET.ER PO SCH (11:14)
--- NOTE | 2022-03-27 11:23 | P.PN ---
Subjective Patient is seen for follow-up for end-stage renal disease. Status post extra treatment yesterday. Patient had about 3 L of ultrafiltration. No complaints today. 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 Patient is legally blind - Labs CBC & Chem 7: 03/26/22 15:34 03/26/22 15:34 Labs: Abnormal Lab Results - Last 24 Hours (Table) 03/26/22 03/26/22 03/26/22 Range/Units 15:34 15:34 16:51 RBC 2.87 L (3.80-5.40) m/uL Hgb 8.7 L (11.4-16.0) gm/dL Hct 25.8 L (34.0-46.0) % RDW 18.3 H (11.5-15.5) % Lymphocytes # 0.8 L (1.0-4.8) k/uL Sodium 134 L (137-145) mmol/L Chloride 96 L (98-107) mmol/L BUN 30 H (7-17) mg/dL Creatinine 2.91 H (0.52-1.04) mg/dL Glucose 65 L (74-99) mg/dL POC Glucose (mg/dL) 120 H (70-110) mg/dL Lipase 607 H (23-300) U/L 03/26/22 03/26/22 03/26/22 Range/Units 18:26 18:47 19:35 RBC (3.80-5.40) m/uL Hgb (11.4-16.0) gm/dL Hct (34.0-46.0) % RDW (11.5-15.5) % Lymphocytes # (1.0-4.8) k/uL Sodium (137-145) mmol/L Chloride (98-107) mmol/L BUN (7-17) mg/dL Creatinine (0.52-1.04) mg/dL Glucose (74-99) mg/dL POC Glucose (mg/dL) 59 L 65 L 55 L (70-110) mg/dL Lipase (23-300) U/L 03/26/22 03/26/22 03/26/22 Range/Units 19:50 20:04 23:22 RBC (3.80-5.40) m/uL Hgb (11.4-16.0) gm/dL Hct (34.0-46.0) % RDW (11.5-15.5) % Lymphocytes # (1.0-4.8) k/uL Sodium (137-145) mmol/L Chloride (98-107) mmol/L BUN (7-17) mg/dL Creatinine (0.52-1.04) mg/dL Glucose (74-99) mg/dL POC Glucose (mg/dL) 66 L 69 L 218 H (70-110) mg/dL Lipase (23-300) U/L 03/27/22 03/27/22 03/27/22 Range/Units 05:12 05:12 06:50 RBC (3.80-5.40) m/uL Hgb (11.4-16.0) gm/dL Hct (34.0-46.0) % RDW (11.5-15.5) % Lymphocytes # (1.0-4.8) k/uL Sodium (137-145) mmol/L Chloride (98-107) mmol/L BUN (7-17) mg/dL Creatinine (0.52-1.04) mg/dL Glucose (74-99) mg/dL POC Glucose (mg/dL) 486 H 486 H 593 H (70-110) mg/dL Lipase (23-300) U/L 03/27/22 Range/Units 08:12 RBC (3.80-5.40) m/uL Hgb (11.4-16.0) gm/dL Hct (34.0-46.0) % RDW (11.5-15.5) % Lymphocytes # (1.0-4.8) k/uL Sodium (137-145) mmol/L Chloride (98-107) mmol/L BUN (7-17) mg/dL Creatinine (0.52-1.04) mg/dL Glucose (74-99) mg/dL POC Glucose (mg/dL) 467 H (70-110) mg/dL Lipase (23-300) U/L Assessment and Plan Assessment: 1. ESRD on dialysis Monday since February 2020 with a fistula in the left arm. 2. Hypertension, partly volume sensitive 3. Volume overload currently improved 4. 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 Anemia hemoglobin 8.0, iron replete maintained on Aranesp. No active bleeding noted 6. Brittle diabetes Plan: Maintain hemodialysis on Monday schedule
[2022-03-27 12:01] LABS: Glucose,Whole Blood 148 mg/dL (70-110)
[2022-03-27 14:27] VITALS: BP 155/76; PULSE 74; TEMP 97.8
--- NOTE | 2022-03-27 19:44 | P.DS ---
Providers Date of admission: 03/14/22 10:33 Expected date of discharge: 03/27/22 Attending physician: Roque Buckner Consults: 03/13/22 06:28 Consult Physician Routine Consulting Provider: Cindy Amaro Consult Reason/Comments: Dialysis patient Do you want consulting provider notified?: Yes Primary care physician: Roque Buckner [facility] Course: 31-year-old female patient with a known history of type 1 diabetes mellitus, end-stage renal disease receiving hemodialysis Monday, CVA/TIA, hypertension, diabetic retinopathy/legally blind, restless leg syndrome diabetic neuropathy, anxiety/depression. She was also admitted last month for an acute cardiopulmonary arrest secondary to fluid overload and hyperkalemia requiring brief CPR and intubation mechanical ventilatory support. She subsequently required covered and was discharged home on 03/01/2022. She represented to the emergency room early on 03/13/2022 with complaints of weakness, dizziness and lightheadedness. She had received hemodialysis as scheduled. She had been running hypertensive. She takes Coreg and Procardia at home and her blood pressure was 180s and a few hours later was 120 systolically. She woke up around midnight feeling weak and her pressure was in the 60s and she presented here for the same. She was admitted to the regular medical floor. This morning they called a rapid response team on her for her blood pressure dropping from the 170s to the 90s systolically. She continued to have low blood pressure. She did receive her blood pressure medicines yesterday but were held this morning. We are consulted for possible transfer to the ICU. Chest x-ray does reveal some fluid volume overload/congestive heart failure. White count 4.4. Hemoglobin 7.3. Platelets 192. D-dimer 0.58. Sodium 132. Potassium 5.0. Bicarb 19. Anion gap 20. BUN 41. Creatinine 5.99. Glucose 197. AST 29. ALT 28. Presenting glucose was 451. Acetone negative. She is continued on Levemir. During our evaluation she was alert and oriented 3. She was having some issues with dizziness and lightheadedness. No chest pain or palpitations. No shortness of breath. She is maintaining O2 saturations at 99% on 3 L nasal cannula. Systolic blood pressure in the 70s. Heart rate in the 50s. She is initiated on fluid bolus of 500 mL and if no improvement will receive a second 500 mL. She was transferred to the cardiac stepdown unit for closer observation. Generalized weakness, dizziness secondary to hypotension, resolved, I felt that hypertension is mostly related to extensive list of blood pressure medications and possibly some component of hypovolemia related to her hyperglycemia. History of hypertension on multiple antihypertensive medications Recent admission for cardiac arrest and acute hypoxemic respiratory failure secondary to hyperkalemia and fluid volume overload End-stage renal disease on hemodialysis, Monday Type 1 diabetes, on Levemir and NovoLog Diabetic neuropathy Diabetic retinopathy/legal blindness Chronic anemia of chronic disease History of CVA/TIA History of COVID-19 infection May 2021 03/26/2022 Patient is seen sitting up in bed; continues to report abdominal pain; lipase downtrending but no let's have been obtained in past 24 hours - We will monitor CBC Hyperglycemia; blood glucose remains elevated on current regimen; we will plan to monitor closely; increase Levemir up to 25 daily and if at any further chest - Possible discharge in next 24 hours 03/27/2022; patient is hemodynamically stable; blood glucoses improved; discharge home in a stable condition Patient Condition at Discharge: Fair Plan - Discharge Summary Discharge Rx Participant: No New Discharge Prescriptions: New cloNIDine HCL [Catapres] 0.1 mg PO TID 30 Days #90 tab Insulin Detemir (Levemir) [Levemir] 25 unit SQ DAILY@0700 30 Days #1 each Continue Escitalopram [Lexapro] 20 mg PO DAILY Glucagon Emergency Kit 1 mg IM ONCE PRN #1 kit PRN Reason: Hypoglycemia Cyanocobalamin [Vitamin B-12] 1,000 mcg PO DAILY #60 tab Atorvastatin [Lipitor] 40 mg PO DAILY 30 Days #30 tab Calcium Acetate [PhosLo] 667 mg PO TID-W/MEALS 30 Days #90 tab LORazepam [Ativan] 1 mg PO TID PRN #90 tab PRN Reason: Agitation rOPINIRole HCL [Requip] 2 mg PO HS Ergocalciferol (Vitamin D2) [Drisdol (50,000 Iu)] 1,250 mcg PO Q30D carvediloL [Coreg] 25 mg PO BID Acetaminophen Tab [Tylenol] 650 mg PO Q6HR PRN #30 tab PRN Reason: Fever And/ Or Pain Pantoprazole Sodium [Protonix] 20 mg PO BID #30 tab Methoxy Peg-Epoetin Beta [Mircera] 200 mcg IVPB Q14D Aspirin 81 mg PO DAILY Albuterol Inhaler [Ventolin Hfa Inhaler] 2 puff INHALATION RT-QID PRN PRN Reason: Shortness Of Breath NIFEdipine XL [Procardia XL] 60 mg PO BID hydrOXYzine HCL [Atarax] 25 mg PO TID PRN #90 tab PRN Reason: Itching Melatonin [Melatonin Dissolving Tablet] 10 mg PO HS Insulin Aspart [NovoLOG Flexpen] See Protocol SQ TID-W/MEALS buPROPion SR [Wellbutrin SR] 150 mg PO BID Lidocaine-Prilocaine Cream [Emla Cream 2.5%/2.5%] 1 applic TOPICAL MOWEFR PRN PRN Reason: AVF Access rOPINIRole HCL [Requip] 1 mg PO DAILY Discontinued Insulin Detemir (Levemir) [Levemir] 13 unit SQ HS Discharge Medication List Ergocalciferol (Vitamin D2) [Drisdol (50,000 Iu)] 1,250 mcg PO Q30D 04/03/21 [History] carvediloL [Coreg] 25 mg PO BID 04/03/21 [History] Acetaminophen Tab [Tylenol] 650 mg PO Q6HR PRN #30 tab 04/09/21 [Rx] Escitalopram [Lexapro] 20 mg PO DAILY 04/17/21 [History] Glucagon Emergency Kit 1 mg IM ONCE PRN #1 kit 06/15/21 [Rx] Cyanocobalamin [Vitamin B-12] 1,000 mcg PO DAILY #60 tab 09/06/21 [Rx] Atorvastatin [Lipitor] 40 mg PO DAILY 30 Days #30 tab 10/13/21 [Rx] Calcium Acetate [PhosLo] 667 mg PO TID-W/MEALS 30 Days #90 tab 10/13/21 [Rx] Pantoprazole Sodium [Protonix] 20 mg PO BID #30 tab 10/15/21 [Rx] Albuterol Inhaler [Ventolin Hfa Inhaler] 2 puff INHALATION RT-QID PRN 12/06/21 [History] Aspirin 81 mg PO DAILY 12/06/21 [History] Methoxy Peg-Epoetin Beta [Mircera] 200 mcg IVPB Q14D 12/06/21 [History] NIFEdipine XL [Procardia XL] 60 mg PO BID 12/06/21 [History] LORazepam [Ativan] 1 mg PO TID PRN #90 tab 12/09/21 [Rx] hydrOXYzine HCL [Atarax] 25 mg PO TID PRN #90 tab 12/09/21 [Rx] Insulin Aspart [NovoLOG Flexpen] See Protocol SQ TID-W/MEALS 12/21/21 [History] Melatonin [Melatonin Dissolving Tablet] 10 mg PO HS 12/21/21 [History] rOPINIRole HCL [Requip] 2 mg PO HS 12/21/21 [History] Lidocaine-Prilocaine Cream [Emla Cream 2.5%/2.5%] 1 applic TOPICAL MOWEFR PRN 02/09/22 [History] buPROPion SR [Wellbutrin SR] 150 mg PO BID 02/09/22 [History] rOPINIRole HCL [Requip] 1 mg PO DAILY 03/13/22 [History] Insulin Detemir (Levemir) [Levemir] 25 unit SQ DAILY@0700 30 Days #1 each 03/27/22 [Rx] cloNIDine HCL [Catapres] 0.1 mg PO TID 30 Days #90 tab 03/27/22 [Rx] Follow up Appointment(s)/Referral(s): Roque Buckner MD [Primary Care Provider] - 1-[facility], [NON-STAFF] - ([facility] will call you to arrange a visit) Discharge Disposition: HOME SELF-CARE
[2022-03-28 08:56] LABS: Glucose,Whole Blood 153 mg/dL (70-110)
== END 2022-03-27 15:50 | disposition home health service (06) | DRG 291 ==
LOC: EC 00:13 → 6NMEDSUR 06:29 → 2SICU 03-14 10:27 → OBSVTOIN 03-14 10:33 → 4SSUR 03-16 18:08 → 3SCARD 03-17 02:33 → 6NMEDSUR 03-27 00:15
PROVIDERS: ADMIT Family Medicine; ATTEND Family Medicine
PROC: 5A1D70Z Performance of Urinary Filtration, Intermittent, Less than 6 Hours Per Day (ICD-10-PCS; principal; 2022-03-13)
DX: I13.2 Hypertensive heart and chronic kidney disease with heart failure and with stage 5 chronic kidney disease, or end stage renal disease (principal); N18.6 End stage renal disease; E87.20 Acidosis, unspecified; E87.3 Alkalosis; R64 Cachexia; I95.9 Hypotension, unspecified; E86.0 Dehydration; E10.40 Type 1 diabetes mellitus with diabetic neuropathy, unspecified; E10.319 Type 1 diabetes mellitus with unspecified diabetic retinopathy without macular edema; D63.1 Anemia in chronic kidney disease; E83.9 Disorder of mineral metabolism, unspecified; E10.22 Type 1 diabetes mellitus with diabetic chronic kidney disease; I50.32 Chronic diastolic (congestive) heart failure; E10.65 Type 1 diabetes mellitus with hyperglycemia; Z99.2 Dependence on renal dialysis; Z79.4 Long term (current) use of insulin; Z28.310 Unvaccinated for COVID-19; E86.1 Hypovolemia; I16.0 Hypertensive urgency; R00.1 Bradycardia, unspecified; F32.A Depression, unspecified; G89.29 Other chronic pain; K59.00 Constipation, unspecified; F41.9 Anxiety disorder, unspecified; M54.50 Low back pain, unspecified; G25.81 Restless legs syndrome; H53.009 Unspecified amblyopia, unspecified eye; H54.8 Legal blindness, as defined in USA; Z79.82 Long term (current) use of aspirin; Z79.899 Other long term (current) drug therapy; Z86.16 Personal history of COVID-19; Z86.73 Personal history of transient ischemic attack (TIA), and cerebral infarction without residual deficits; Z71.3 Dietary counseling and surveillance; Z88.8 Allergy status to other drugs, medicaments and biological substances; Z91.013 Allergy to seafood
CPT/HCPCS: 36415; 71045; 80048; 80053; 82009; 82728; 82947; 83540; 83550; 83690; 83735; 83835; 84484; 85025; 85027; 85379; 90935; 93005; 94760; 96361; 96374; 99285

== ENCOUNTER 2022-04-02 18:04 | Inpatient (IN) | payer MEDICARE, OTHER ==
[2022-04-02] MEDS ORDERED: ONDANSETRON 4 MG/2 ML VIAL IVP STA (18:42)
[2022-04-02] MEDS ORDERED: HYDROmorphone 1 MG/ML 1 ML SYRINGE IVP STA (18:42)
--- NOTE | 2022-04-02 18:49 | ED ---
SOB HPI - General Chief Complaint: Shortness of Breath Stated Complaint: Dialysis Time Seen by Provider: 04/02/22 18:38 Source: patient, RN notes reviewed, old records reviewed Mode of arrival: ambulatory Limitations: no limitations - History of Present Illness Initial Comments: Review of female with a history of chronic renal failure who does have dialysis the last dialysis being yesterday was seen here earlier today with shortness of breath and chest pain in his back now with complaints of worsening shortness of breath or exertional dyspnea and persistent sharp anterior chest pain. She feels as if she is getting worse and needs dialysis. He denies any fever chills or sweats but does have nausea. No other current complaints MD Complaint: shortness of breath - Related Data Home Medications Medication Instructions Recorded Confirmed Ergocalciferol (Vitamin D2) 1,250 mcg PO Q30D 04/03/21 04/02/22 [Drisdol (50,000 Iu)] carvediloL [Coreg] 25 mg PO BID 04/03/21 04/02/22 Escitalopram [Lexapro] 20 mg PO DAILY 04/17/21 04/02/22 Albuterol Inhaler [Ventolin Hfa 2 puff INHALATION RT-QID PRN 12/06/21 04/02/22 Inhaler] Aspirin 81 mg PO DAILY 12/06/21 04/02/22 Methoxy Peg-Epoetin Beta [Mircera] 200 mcg IVPB Q14D 12/06/21 04/02/22 NIFEdipine XL [Procardia XL] 60 mg PO BID 12/06/21 04/02/22 Insulin Aspart [NovoLOG Flexpen] See Protocol SQ TID-W/MEALS 12/21/21 04/02/22 Melatonin [Melatonin Dissolving 10 mg PO HS 12/21/21 04/02/22 Tablet] rOPINIRole HCL [Requip] 2 mg PO HS 12/21/21 04/02/22 Lidocaine-Prilocaine Cream [Emla 1 applic TOPICAL MOWEFR PRN 02/09/22 04/02/22 Cream 2.5%/2.5%] buPROPion SR [Wellbutrin SR] 150 mg PO BID 02/09/22 04/02/22 rOPINIRole HCL [Requip] 1 mg PO DAILY 03/13/22 04/02/22 Insulin Detemir (Levemir) [Levemir] 15 unit SQ HS 04/02/22 04/02/22 cloNIDine HCL [Catapres] 0.2 mg PO TID 04/02/22 04/02/22 Previous Rx's Medication Instructions Recorded Acetaminophen Tab [Tylenol] 650 mg PO Q6HR PRN #30 tab 04/09/21 Glucagon Emergency Kit 1 mg IM ONCE PRN #1 kit 06/15/21 Cyanocobalamin [Vitamin B-12] 1,000 mcg PO DAILY #60 tab 09/06/21 Atorvastatin [Lipitor] 40 mg PO DAILY 30 Days #30 tab 10/13/21 Calcium Acetate [PhosLo] 667 mg PO TID-W/MEALS 30 Days #90 10/13/21 tab Pantoprazole Sodium [Protonix] 20 mg PO BID #30 tab 10/15/21 LORazepam [Ativan] 1 mg PO TID PRN #90 tab 12/09/21 hydrOXYzine HCL [Atarax] 25 mg PO TID PRN #90 tab 12/09/21 Allergies Allergy/AdvReac Type Severity Reaction Status Date / Time Fish Containing Products Allergy Rash/Hives Verified 04/02/22 20:48 [Fish] iodine Allergy Anaphylaxis Verified 04/02/22 20:48 Review of Systems ROS Statement: Those systems with pertinent positive or pertinent negative responses have been documented in the HPI. ROS Other: All systems not noted in ROS Statement are negative. Past Medical History Past Medical History: CVA/TIA, Diabetes Mellitus, Dialysis, Eye Disorder, Hypertension, Renal Disease Additional Past Medical History / Comment(s): ESRD with hemodialysis M/W/F, IDDM type 1, DKA, neuropathy bilateral legs/feet, diabetic retinopathy/legally blind, RLS, gastritis, severe hypokalemia, fluid retention in abdomin/legs. History of Any Multi-Drug Resistant Organisms: None Reported Past Surgical History: Appendectomy, Section, Cholecystectomy Additional Past Surgical History / Comment(s): fistula left arm Past Anesthesia/Blood Transfusion Reactions: No Reported Reaction Past Psychological History: Anxiety, Depression Smoking Status: Never smoker Past Alcohol Use History: None Reported Past Drug Use History: None Reported - Past Family History Mother Family Medical History: Cancer, Hypertension Additional Family Medical History / Comment(s): Thyroid cancer, bipolar Father Family Medical History: Seizure Disorder Additional Family Medical History / Comment(s): Epilepsy General Exam - General Exam Comments Initial Comments: This is a well-developed thin appearing female who is awake alert oriented 4 Limitations: no limitations General appearance: alert, anxious, in distress Head exam: Present: atraumatic, normocephalic, normal inspection Eye exam: Present: normal appearance, PERRL, EOMI. Absent: scleral icterus, conjunctival injection, periorbital swelling ENT exam: Present: normal exam, mucous membranes moist Neck exam: Present: normal inspection, full ROM, other. Absent: tenderness, meningismus, lymphadenopathy Respiratory exam: Present: normal lung sounds bilaterally, rales, chest wall tenderness, accessory muscle use, decreased breath sounds (No stridor JVD or bruits). Absent: respiratory distress, wheezes, rhonchi, stridor Cardiovascular Exam: Present: regular rate, normal rhythm, normal heart sounds. Absent: systolic murmur, diastolic murmur, rubs, gallop, clicks GI/Abdominal exam: Present: soft, normal bowel sounds. Absent: distended, tenderness, guarding, rebound, rigid Extremities exam: Present: normal inspection, full ROM, normal capillary refill. Absent: tenderness, pedal edema, joint swelling, calf tenderness Back exam: Present: normal inspection Neurological exam: Present: alert, oriented X3, CN II-XII intact Psychiatric exam: Present: normal affect, anxious Skin exam: Present: warm, dry, intact, pallor. Absent: rash Course Vital Signs 04/02/22 04/02/22 04/02/22 18:29 19:16 20:00 Temperature 101.3 F H Pulse Rate 87 84 86 Respiratory 18 21 30 H Rate Blood Pressure 198/91 215/103 215/103 O2 Sat by Pulse 84 L 96 96 Oximetry Fraction of Inspired Oxygen (FIO2) 04/02/22 04/02/22 04/02/22 20:30 21:00 21:15 Temperature Pulse Rate 87 89 87 Respiratory 30 H 36 H 36 H Rate Blood Pressure 206/106 206/105 224/116 O2 Sat by Pulse 95 92 L 88 L Oximetry Fraction of Inspired Oxygen (FIO2) 04/02/22 22:04 Temperature Pulse Rate Respiratory Rate Blood Pressure O2 Sat by Pulse Oximetry Fraction of 50 Inspired Oxygen (FIO2) - Reevaluation(s) Reevaluation #1: 04/02/22 22:25 Patient reevaluated seems be resting comfortably however pulse ox is 86% on 4 L of oxygen at rest. Otherwise no change in her status since arrival. Medical Decision Making - Medical Decision Making Did discuss the findings with Dr. Haddad as well as Dr. Mullen the patient will be placed on BiPAP medication orders per Dr. Haddad patient admitted. Patient did have a fever but no definitive source of infection at this time. - Lab Data Result diagrams: 04/02/22 18:59 04/02/22 18:59 Lab Results 04/02/22 04/02/22 04/02/22 Range/Units 18:59 18:59 18:59 WBC 10.2 (3.8-10.6) k/uL RBC 2.60 L (3.80-5.40) m/uL Hgb 8.0 L (11.4-16.0) gm/dL Hct 25.0 L (34.0-46.0) % MCV 96.2 D (80.0-100.0) fL MCH 31.0 (25.0-35.0) pg MCHC 32.2 (31.0-37.0) g/dL RDW 18.4 H (11.5-15.5) % Plt Count 257 (150-450) k/uL MPV 9.2 Neutrophils % 90 % Lymphocytes % 4 % Monocytes % 3 % Eosinophils % 1 % Basophils % 1 % Neutrophils # 9.1 H (1.3-7.7) k/uL Lymphocytes # 0.4 L (1.0-4.8) k/uL Monocytes # 0.3 (0-1.0) k/uL Eosinophils # 0.1 (0-0.7) k/uL Basophils # 0.1 (0-0.2) k/uL Hypochromasia Marked Anisocytosis Slight Macrocytosis Slight PT 10.9 (9.0-12.0) sec INR 1.0 (<1.2) APTT 23.5 (22.0-30.0) sec Sodium 128 L (137-145) mmol/L Potassium 5.5 H (3.5-5.1) mmol/L Chloride 89 L (98-107) mmol/L Carbon Dioxide 15 L (22-30) mmol/L Anion Gap 24 mmol/L BUN 55 H (7-17) mg/dL Creatinine 5.95 H (0.52-1.04) mg/dL Est GFR (CKD-EPI)AfAm 10 (>60 ml/min/1.73 sqM) Est GFR (CKD-EPI)NonAf 9 (>60 ml/min/1.73 sqM) Glucose 672 H* (74-99) mg/dL Plasma Lactic Acid Dio (0.7-2.0) mmol/L Calcium 8.4 (8.4-10.2) mg/dL Magnesium 1.8 (1.6-2.3) mg/dL Total Bilirubin 1.0 (0.2-1.3) mg/dL AST 105 H (14-36) U/L ALT 126 H (4-34) U/L Alkaline Phosphatase 417 H (38-126) U/L Troponin I (0.000-0.034) ng/mL NT-Pro-B Natriuret Pep pg/mL Total Protein 6.5 (6.3-8.2) g/dL Albumin 4.4 (3.5-5.0) g/dL 04/02/22 04/02/22 04/02/22 Range/Units 18:59 18:59 18:59 WBC (3.8-10.6) k/uL RBC (3.80-5.40) m/uL Hgb (11.4-16.0) gm/dL Hct (34.0-46.0) % MCV (80.0-100.0) fL MCH (25.0-35.0) pg MCHC (31.0-37.0) g/dL RDW (11.5-15.5) % Plt Count (150-450) k/uL MPV Neutrophils % % Lymphocytes % % Monocytes % % Eosinophils % % Basophils % % Neutrophils # (1.3-7.7) k/uL Lymphocytes # (1.0-4.8) k/uL Monocytes # (0-1.0) k/uL Eosinophils # (0-0.7) k/uL Basophils # (0-0.2) k/uL Hypochromasia Anisocytosis Macrocytosis PT (9.0-12.0) sec INR (<1.2) APTT (22.0-30.0) sec Sodium (137-145) mmol/L Potassium (3.5-5.1) mmol/L Chloride (98-107) mmol/L Carbon Dioxide (22-30) mmol/L Anion Gap mmol/L BUN (7-17) mg/dL Creatinine (0.52-1.04) mg/dL Est GFR (CKD-EPI)AfAm (>60 ml/min/1.73 sqM) Est GFR (CKD-EPI)NonAf (>60 ml/min/1.73 sqM) Glucose (74-99) mg/dL Plasma Lactic Acid Dio 2.2 H* (0.7-2.0) mmol/L Calcium (8.4-10.2) mg/dL Magnesium (1.6-2.3) mg/dL Total Bilirubin (0.2-1.3) mg/dL AST (14-36) U/L ALT (4-34) U/L Alkaline Phosphatase (38-126) U/L Troponin I 0.027 (0.000-0.034) ng/mL NT-Pro-B Natriuret Pep 425061 pg/mL Total Protein (6.3-8.2) g/dL Albumin (3.5-5.0) g/dL - EKG Data -: EKG Interpreted by Me EKG shows normal: sinus rhythm EKG Comments: Sinus rhythm interpreted by me rate 86 MT interval 154 QRS duration 94 QT since QTC 388/432 possible left atrial enlargement nonspecific ST configuration - Radiology Data Radiology results: image reviewed (Imaging reveals no reported observe the imaging with evidence of vascular congestion.) Disposition Clinical Impression: Systolic congestive heart failure, Febrile illness, acute, Chronic renal failure, Hyperglycemia Disposition: ADMITTED IP TO THIS HOSP Condition: Fair Referrals: Roque Buckner MD [Primary Care Provider] - 1-2 days Decision Date: 04/02/22 Decision Time: 22:31
[2022-04-02 19:29] LABS: Anisocytosis Slight; Basophils # (A) 0.1 k/uL (0-0.2); Basophils % (A) 1 %; Eosinophils # (A) 0.1 k/uL (0-0.7); Eosinophils % (A) 1 %; Hypochromasia Marked; Lymphocytes # (A) 0.4 k/uL (1.0-4.8); Lymphocytes % (A) 4 %; MCHC 32.2 g/dL (31.0-37.0); Macrocytosis Slight; Mean Platelet Volume 9.2; Monocytes # (A) 0.3 k/uL (0-1.0); Monocytes % (A) 3 %; Neutrophils # (A) 9.1 k/uL (1.3-7.7); Neutrophils % (A) 90 %; Platelet Count 257 k/uL (150-450); RDW 18.4 % (11.5-15.5); WBC 10.2 k/uL (3.8-10.6)
[2022-04-02 19:40] LABS: MCV 96.2 fL (80.0-100.0)
[2022-04-02 19:44] LABS: Partial Thromboplastin Time 23.5 sec (22.0-30.0); Prothrombin Time 10.9 sec (9.0-12.0)
[2022-04-02 19:57] LABS: Albumin 4.4 g/dL (3.5-5.0); Calcium 8.4 mg/dL (8.4-10.2); Magnesium 1.8 mg/dL (1.6-2.3); Potassium 5.5 mmol/L (3.5-5.1); Total Protein 6.5 g/dL (6.3-8.2)
--- NOTE | 2022-04-02 20:20 | XR ---
EXAMINATION TYPE: XR chest 2V DATE OF EXAM: 04/02/2022 8:08 PM COMPARISON: Chest x-ray 03/14/2022 TECHNIQUE: XR chest 2V . CLINICAL INDICATION:Female, 31 years old with history of difficulty breathing; FINDINGS: Lungs/Pleura: Hazy appearance of the lung bases bilaterally just interstitial edema, minimally progre ssed from 03/14/2022. No sizable pleural effusion or pneumothorax. Trace fluid within the major fissu re. Pulmonary vascularity: Mild pulmonary vascular congestion. Heart/mediastinum: Cardiomediastinal silhouette is enlarged and stable. Musculoskeletal: No acute osseous pathology. IMPRESSION: Stable cardiomegaly with mild pulmonary vascular congestion and mild interstitial edema. Correlate fo r acute exacerbation of congestive heart failure.
[2022-04-02] MEDS ORDERED: INSULIN REGULAR 100 UNIT/ML VIAL (IV) IV ONE (21:03)
[2022-04-02] MEDS ORDERED: LOSARTAN 50 MG TAB PO STA (21:46)
[2022-04-02] MEDS ORDERED: FUROSEMIDE 10 MG/ML 4 ML VIAL IV STA (21:47)
[2022-04-02] MEDS: hydrALAZINE HCL 50 MG TAB PO SCH (21:56)
[2022-04-02] MEDS ORDERED: LORazepam 2 MG/ML INJ IV STA (22:27)
[2022-04-02] MEDS ORDERED: ACETAMINOPHEN TAB 325 MG TAB PO PRN (22:48)
[2022-04-02] MEDS ORDERED: hydrOXYzine HCL 25 MG TAB PO PRN (22:48)
[2022-04-02] MEDS ORDERED: ALBUTEROL NEBULIZED 2.5 MG/3 ML INHALATION PRN (22:48)
[2022-04-02] MEDS ORDERED: cefTRIAXone IN SWFI 1,000 MG/10 ML SYRINGE IVP STA (22:50)
[2022-04-02] MEDS ORDERED: [UNRECOGNIZED DRUG - OTHER] IV PRN (23:00)
[2022-04-02] MEDS: FUROSEMIDE 10 MG/ML 4 ML VIAL IV SCH (23:01)
[2022-04-02] MEDS ORDERED: NITROGLYCERIN OINT 1 INCH/GM PACKET TOPICAL STA (23:17)
[2022-04-02 23:23] LABS: Glucose,Whole Blood 576 mg/dL (70-110)
[2022-04-02 23:23] LABS: Glucose,Whole Blood 563 mg/dL (70-110)
[2022-04-03] MEDS ORDERED: INSULIN REGULAR 100 UNIT/ML VIAL (IV) IV ONE
[2022-04-03] MEDS ORDERED: DEXTROSE 50% SYRINGE 50 ML IVP PRN ×2 (00:04)
[2022-04-03] MEDS ORDERED: hydrALAZINE HCL 20 MG/ML 1 ML VIAL IVP STA (00:20)
[2022-04-03] MEDS ORDERED: cloNIDine HCL 0.2 MG TAB PO STA (00:23)
[2022-04-03] MEDS ORDERED: cloNIDine 0.2 MG/24HR PATCH TRANSDERM SCH (00:30)
[2022-04-03] MEDS: LORazepam 1 MG TAB PO PRN ×3 (01:35→20:17)
[2022-04-03] MEDS ORDERED: diphenhydrAMINE 50 MG/ML 1 ML VIAL IVP PRN ×2 (01:47→01:49)
[2022-04-03] MEDS ORDERED: HYDROmorphone 1 MG/ML 1 ML SYRINGE IVP STA (01:48)
[2022-04-03 02:01] LABS: Glucose,Whole Blood 323 mg/dL (70-110)
[2022-04-03 06:21] LABS: Glucose,Whole Blood 281 mg/dL (70-110)
[2022-04-03] MEDS: FUROSEMIDE 10 MG/ML 4 ML VIAL IV SCH ×3 (06:50→20:16)
[2022-04-03] MEDS: INSULIN ASPART (NovoLOG) 100 UNIT/ML VIAL SQ SCH ×4 (06:50→20:17)
[2022-04-03] MEDS: CALCIUM ACETATE 667 MG TAB PO SCH ×3 (06:51→16:10)
[2022-04-03] MEDS: PANTOPRAZOLE 40 MG TABLET PO SCH (06:51)
[2022-04-03] MEDS: CYANOCOBALAMIN 500 MCG TAB PO SCH (08:05)
[2022-04-03] MEDS: hydrALAZINE HCL 50 MG TAB PO SCH ×3 (08:05→20:16)
[2022-04-03] MEDS: ATORVASTATIN 40 MG TAB PO SCH (08:05)
[2022-04-03] MEDS: carvediloL 12.5 MG TAB PO SCH ×2 (08:05→20:16)
[2022-04-03] MEDS: ASPIRIN 81 MG PO SCH (08:05)
[2022-04-03] MEDS: ESCITALOPRAM 20 MG TAB PO SCH (08:05)
[2022-04-03] MEDS: buPROPion SR 150 MG TABLET.ER PO SCH ×2 (08:06→22:14)
[2022-04-03 08:29] LABS: Anisocytosis Slight; Basophils # (A) 0.1 k/uL (0-0.2); Basophils % (A) 1 %; Eosinophils # (A) 0.2 k/uL (0-0.7); Eosinophils % (A) 2 %; HCT 23.9 % (34.0-46.0); HGB 7.7 gm/dL (11.4-16.0); Hypochromasia Slight; Lymphocytes # (A) 0.7 k/uL (1.0-4.8); Lymphocytes % (A) 8 %; MCH 30.2 pg (25.0-35.0); MCHC 32.3 g/dL (31.0-37.0); MCV 93.3 fL (80.0-100.0); Mean Platelet Volume 9.1; Monocytes # (A) 0.3 k/uL (0-1.0); Monocytes % (A) 4 %; Neutrophils # (A) 6.8 k/uL (1.3-7.7); Neutrophils % (A) 85 %; Platelet Count 227 k/uL (150-450); RBC 2.56 m/uL (3.80-5.40); RDW 18.1 % (11.5-15.5)
[2022-04-03 08:33] LABS: Potassium 3.5 mmol/L (3.5-5.1)
[2022-04-03] MEDS ORDERED: ERGOCALCIFEROL 1,250 MCG (50,000 IU) CAPSULE PO SCH (09:00)
[2022-04-03] MEDS ORDERED: hydrALAZINE HCL 50 MG TAB PO SCH (09:30)
[2022-04-03] MEDS: LOSARTAN 50 MG TAB PO SCH (10:25)
[2022-04-03] MEDS: HYDROmorphone 1 MG/ML 1 ML SYRINGE IVP PRN ×3 (10:26→22:14)
[2022-04-03 12:09] LABS: Glucose,Whole Blood 450 mg/dL (70-110)
[2022-04-03 16:32] LABS: Glucose,Whole Blood 530 mg/dL (70-110)
--- NOTE | 2022-04-03 16:37 | P.NPCON ---
History of Present Illness - Reason for Consult Consult date: 04/03/22 end stage renal disease - Chief Complaint Shortness of breath - History of Present Illness 31-year-old female with ESRD on hemodialysis for the last 2 years secondary to hypertensive nephropathy. She did not miss dialysis, but admits drinking extra fluids. She had dialysis on Monday but postdialysis still felt that she was short of breath and called the clinic on Monday. They did not had any openings came to the ER. She was short of breath hypoxic needing oxygen and BiPAP underwent hemodialysis emergently last night with 3 L of fluid removed. Currently feeling better. Review of Systems Constitutional: Reports as per HPI Past Medical History Past Medical History: CVA/TIA, Diabetes Mellitus, Dialysis, Eye Disorder, Hypertension, Renal Disease Additional Past Medical History / Comment(s): ESRD with hemodialysis M/W/F, IDDM type 1, DKA, neuropathy bilateral legs/feet, diabetic retinopathy/legally blind, RLS, gastritis, severe hypokalemia, fluid retention in abdomin/legs. History of Any Multi-Drug Resistant Organisms: None Reported Past Surgical History: Appendectomy, Section, Cholecystectomy Additional Past Surgical History / Comment(s): fistula left arm Past Anesthesia/Blood Transfusion Reactions: No Reported Reaction Past Psychological History: Anxiety, Depression Additional Psychological History / Comment(s): Pt resides with her father and pt's 3 children. Pt gets to dialysis by grandparents/family or cab. Smoking Status: Never smoker Past Alcohol Use History: None Reported Past Drug Use History: None Reported - Past Family History Mother Family Medical History: Cancer, Hypertension Additional Family Medical History / Comment(s): Thyroid cancer, bipolar Father Family Medical History: Seizure Disorder Additional Family Medical History / Comment(s): Epilepsy Medications and Allergies Home Medications Medication Instructions Recorded Confirmed Type Ergocalciferol (Vitamin D2) 1,250 mcg PO Q30D 04/03/21 04/02/22 History [Drisdol (50,000 Iu)] carvediloL [Coreg] 25 mg PO BID 04/03/21 04/02/22 History Acetaminophen Tab [Tylenol] 650 mg PO Q6HR PRN #30 tab 04/09/21 04/02/22 Rx Escitalopram [Lexapro] 20 mg PO DAILY 04/17/21 04/02/22 History Glucagon Emergency Kit 1 mg IM ONCE PRN #1 kit 06/15/21 04/02/22 Rx Cyanocobalamin [Vitamin B-12] 1,000 mcg PO DAILY #60 tab 09/06/21 04/02/22 Rx Atorvastatin [Lipitor] 40 mg PO DAILY 30 Days #30 tab 10/13/21 04/02/22 Rx Calcium Acetate [PhosLo] 667 mg PO TID-W/MEALS 30 Days #90 10/13/21 04/02/22 Rx tab Pantoprazole Sodium [Protonix] 20 mg PO BID #30 tab 10/15/21 04/02/22 Rx Albuterol Inhaler [Ventolin Hfa 2 puff INHALATION RT-QID PRN 12/06/21 04/02/22 History Inhaler] Aspirin 81 mg PO DAILY 12/06/21 04/02/22 History Methoxy Peg-Epoetin Beta [Mircera] 200 mcg IVPB Q14D 12/06/21 04/02/22 History NIFEdipine XL [Procardia XL] 60 mg PO BID 12/06/21 04/02/22 History LORazepam [Ativan] 1 mg PO TID PRN #90 tab 12/09/21 04/02/22 Rx hydrOXYzine HCL [Atarax] 25 mg PO TID PRN #90 tab 12/09/21 04/02/22 Rx Insulin Aspart [NovoLOG Flexpen] See Protocol SQ TID-W/MEALS 12/21/21 04/02/22 History Melatonin [Melatonin Dissolving 10 mg PO HS 12/21/21 04/02/22 History Tablet] rOPINIRole HCL [Requip] 2 mg PO HS 12/21/21 04/02/22 History Lidocaine-Prilocaine Cream [Emla 1 applic TOPICAL MOWEFR PRN 02/09/22 04/02/22 History Cream 2.5%/2.5%] buPROPion SR [Wellbutrin SR] 150 mg PO BID 02/09/22 04/02/22 History rOPINIRole HCL [Requip] 1 mg PO DAILY 03/13/22 04/02/22 History Insulin Detemir (Levemir) [Levemir] 15 unit SQ HS 04/02/22 04/02/22 History cloNIDine HCL [Catapres] 0.2 mg PO TID 04/02/22 04/02/22 History Allergies Allergy/AdvReac Type Severity Reaction Status Date / Time Fish Containing Products Allergy Rash/Hives Verified 04/02/22 20:48 [Fish] iodine Allergy Anaphylaxis Verified 04/02/22 20:48 Physical Exam Vitals: Vital Signs Temp Pulse Pulse Resp BP BP Pulse Ox 04/03/22 16:00 99.3 F 78 20 134/63 97 04/03/22 12:00 98.8 F 81 22 146/89 92 L 04/03/22 10:35 162/79 99 04/03/22 08:00 100.0 F H 87 22 226/106 04/03/22 07:34 04/03/22 07:32 04/03/22 06:19 220/117 04/03/22 04:49 98.6 F 85 29 H 236/127 04/03/22 03:56 82 26 H 230/128 99 04/03/22 03:40 04/03/22 02:00 28 H 04/03/22 01:52 EST 98 F 80 28 H 221/107 99 04/03/22 01:37 EST 99 04/03/22 01:30 EST 04/03/22 01:52 EDT 81 32 H 187/105 100 04/03/22 01:34 EDT 84 29 H 196/105 99 04/03/22 01:01 EDT 80 18 209/112 100 04/03/22 00:14 99.1 F 80 20 219/114 95 04/02/22 23:31 04/02/22 23:00 84 24 243/122 100 04/02/22 22:30 90 25 H 207/103 100 04/02/22 22:04 04/02/22 22:00 91 18 224/116 100 04/02/22 21:30 86 30 H 219/109 87 L 04/02/22 21:15 87 36 H 224/116 88 L 04/02/22 21:00 89 36 H 206/105 92 L 04/02/22 20:30 87 30 H 206/106 95 04/02/22 20:00 86 30 H 215/103 96 04/02/22 19:16 84 21 215/103 96 04/02/22 18:29 101.3 F H 87 18 198/91 84 L FiO2 04/03/22 16:00 04/03/22 12:00 04/03/22 10:35 04/03/22 08:00 04/03/22 07:34 50 04/03/22 07:32 50 04/03/22 06:19 04/03/22 04:49 04/03/22 03:56 50 04/03/22 03:40 50 04/03/22 02:00 04/03/22 01:52 EST 50 04/03/22 01:37 EST 50 04/03/22 01:30 EST 50 04/03/22 01:52 EDT 04/03/22 01:34 EDT 04/03/22 01:01 EDT 04/03/22 00:14 04/02/22 23:31 50 04/02/22 23:00 04/02/22 22:30 04/02/22 22:04 50 04/02/22 22:00 04/02/22 21:30 04/02/22 21:15 04/02/22 21:00 04/02/22 20:30 04/02/22 20:00 04/02/22 19:16 04/02/22 18:29 Intake and Output 04/03/22 04/03/22 04/03/22 06:59 14:59 22:59 Intake Total 840 Output Total 0 Balance 840 Intake: Oral 840 Output: Urine 0 Hemodialysis Other: Weight No acute distress S1-S2 heard Decreased breath sounds Abdomen soft Edema Results - Lab Results Most recent lab results Calcium 9.0 mg/dL (8.4-10.2) 04/03/22 07:53 Magnesium 1.8 mg/dL (1.6-2.3) 04/02/22 18:59 04/03/22 07:53 04/03/22 07:53 Assessment and Plan Assessment: #1 shortness of breath secondary to volume overload #2 ESRD on hemodialysis secondary to hypertensive nephropathy #3 large fluid gains #4 hypertension with ESRD #5 anemia with ESRD #6 metabolic bone disease Plan: #1 hemodialysis last night emergently. Plan again tomorrow. 3 L of UF. #2 ESRD medications
[2022-04-03] MEDS: ONDANSETRON 4 MG/2 ML VIAL IVP PRN (18:53)
[2022-04-03 19:49] LABS: Glucose,Whole Blood 310 mg/dL (70-110)
--- NOTE | 2022-04-03 20:01 | HP ---
HISTORY AND PHYSICAL HISTORY OF PRESENT ILLNESS: This is another recent admission for this lady with stage 5 CKD, uncontrolled type 1 diabetes mellitus, and uncontrolled hypertension. She has been in and out of the hospital with exacerbations of blood sugar and blood pressure. She was just in the office on the day of admission. Her blood pressure was high. Medications were prescribed to help alleviate the problem. Another issue is that she is not compliant and some of her medications have been stopped by other physicians. She came in to the emergency room, was complaining of elevated blood pressure. She had been dialyzed yesterday. In the emergency room, her blood pressure was 224/116. She did have a temperature of 101.3. She had no chest pain, shortness of breath, cough, abdominal pain, urinary complaints, etc. White count is 10,100 and blood sugar was 672. Liver functions were elevated with AST of 105 and an ALT of 126, her alkaline phosphatase was up at 417. REVIEW OF SYSTEMS: Other noncontributory. Past medical history, family history, personal and social histories are all otherwise unchanged. She is on numerous medications. PHYSICAL EXAMINATION: VITAL SIGNS: Blood pressure is 224/160 with a pulse of 87, respirations were 35, and temperature is 101.3. GENERAL: She appeared to be pale and chronically ill. She was dehydrated. HEENT: Head, ears, eyes, nose, mouth and throat were normal. Mucous membranes are dry. She is blind. CHEST: Clear. CARDIAC: Demonstrates sinus rhythm and there is no clear-cut S3 or S4. ABDOMEN: Flat, soft, and nontender. EXTREMITIES: Normal. NEUROLOGICAL: She is intact. DIAGNOSES: She is admitted to the hospital with, 1. Hypertensive urgency. 2. Uncontrolled type 1 insulin-dependent diabetes mellitus. 3. Stage 5 CKD. PLAN: 1. Bedrest. 2. Consult Nephrology. 3. Control hypertension and diabetes. MMODL / IJN: [id number] /
[2022-04-03] MEDS: MELATONIN 5 MG TABLET PO SCH (20:15)
[2022-04-03] MEDS: INSULIN DETEMIR (LEVEMIR) 100 UNIT/ML SYR SQ SCH (22:14)
[2022-04-04] LABS: Glucose,Whole Blood 106 mg/dL (70-110)
[2022-04-04 04:37] LABS: Glucose,Whole Blood 132 mg/dL (70-110)
[2022-04-04] MEDS: ONDANSETRON 4 MG/2 ML VIAL IVP PRN ×3 (04:42→22:51)
[2022-04-04] MEDS: HYDROmorphone 1 MG/ML 1 ML SYRINGE IVP PRN ×3 (04:42→20:05)
[2022-04-04 06:12] LABS: Glucose,Whole Blood 177 mg/dL (70-110)
[2022-04-04] MEDS: PANTOPRAZOLE 40 MG TABLET PO SCH (06:34)
[2022-04-04] MEDS: FUROSEMIDE 10 MG/ML 4 ML VIAL IV SCH (06:34)
[2022-04-04] MEDS: INSULIN ASPART (NovoLOG) 100 UNIT/ML VIAL SQ SCH ×4 (06:34→21:24)
[2022-04-04] MEDS: CALCIUM ACETATE 667 MG TAB PO SCH ×3 (06:34→16:48)
--- NOTE | 2022-04-04 09:54 | P.PN ---
Subjective Patient is seen in follow-up for end-stage renal disease. She is [place] hemodialysis on Monday was a Monday schedule. Underwent hemodialysis yesterday with 3 L at defecation. Hemodynamically stable. 2 L nasal cannula. No active complaints at this time. Vital signs are stable. General: Awake. No acute distress. HEENT: Head exam is unremarkable. LUNGS: Breath sounds decreased. HEART: Rate and Rhythm are regular. ABDOMEN: Soft, no distention. EXTREMITITES: No edema. Objective - Vital Signs Vital signs: Vital Signs Temp 98.2 F 04/04/22 03:35 Pulse 74 04/04/22 03:35 Resp 15 04/04/22 03:35 BP 170/82 04/04/22 03:35 Pulse Ox 98 04/04/22 03:35 FiO2 50 04/03/22 07:34 Intake & Output 04/03/22 04/04/22 04/04/22 18:59 06:59 18:59 Intake Total 840 540 240 Output Total 0 Balance 840 540 240 Weight 50.2 kg Intake: Oral 840 540 240 Output: Urine 0 Other: # Voids 1 - Labs CBC & Chem 7: 04/03/22 07:53 04/03/22 07:53 Labs: Abnormal Lab Results - Last 24 Hours (Table) 04/03/22 04/03/22 04/03/22 Range/Units 12:07 16:30 19:48 POC Glucose (mg/dL) 450 H 530 H 310 H (70-110) mg/dL 04/04/22 04/04/22 Range/Units 04:35 06:11 POC Glucose (mg/dL) 132 H 177 H (70-110) mg/dL Microbiology - Last 24 Hours (Table) 04/03/22 00:20 Blood Culture - Preliminary Blood No Growth after 24 hours 04/03/22 00:00 Blood Culture - Preliminary Blood No Growth after 24 hours Assessment and Plan Plan: Assessment: 1. End-stage renal disease maintained on hemodialysis on Monday schedule. 2. Volume overload. Improved postoperative hydration. 3. Hypertension with chronic kidney disease. Blood pressures labile. 4. Diabetes mellitus. Brittle. 5. 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 6. History of pericardial effusion. 7. Anemia of chronic kidney disease. Plan: Stop hydralazine due to history of pericardial effusion. Stop losartan due to frequent hyperkalemia. Maintain Coreg, clonidine and nifedipine. Change Lasix to torsemide 40 mg once daily. Check iron studies.
[2022-04-04] MEDS: CYANOCOBALAMIN 500 MCG TAB PO SCH (10:05)
[2022-04-04] MEDS: carvediloL 12.5 MG TAB PO SCH ×2 (10:05→20:09)
[2022-04-04] MEDS: ATORVASTATIN 40 MG TAB PO SCH (10:05)
[2022-04-04] MEDS: ASPIRIN 81 MG PO SCH (10:05)
[2022-04-04] MEDS: buPROPion SR 150 MG TABLET.ER PO SCH ×2 (10:05→20:09)
[2022-04-04] MEDS: ESCITALOPRAM 20 MG TAB PO SCH (10:05)
[2022-04-04] MEDS: diphenhydrAMINE 50 MG/ML 1 ML VIAL IVP PRN (10:06)
[2022-04-04] MEDS: hydrALAZINE HCL 50 MG TAB PO SCH (10:16)
[2022-04-04] MEDS: LOSARTAN 50 MG TAB PO SCH (10:16)
[2022-04-04 10:28] VITALS: BMI 19.0
[2022-04-04 10:34] LABS: Glucose,Whole Blood 229 mg/dL (70-110)
[2022-04-04 13:05] LABS: Glucose,Whole Blood 412 mg/dL (70-110)
[2022-04-04 16:14] LABS: Glucose,Whole Blood 345 mg/dL (70-110)
[2022-04-04 16:52] LABS: % Iron Saturation 12.91 (12.00-45.00)
[2022-04-04] MEDS: LORazepam 1 MG TAB PO PRN (18:26)
[2022-04-04] MEDS: MELATONIN 5 MG TABLET PO SCH (20:09)
[2022-04-04 20:33] LABS: Glucose,Whole Blood 323 mg/dL (70-110)
[2022-04-04] MEDS: INSULIN DETEMIR (LEVEMIR) 100 UNIT/ML SYR SQ SCH (21:24)
[2022-04-05] MEDS: diphenhydrAMINE 50 MG/ML 1 ML VIAL IVP PRN ×3 (00:24→23:55)
[2022-04-05 00:32] LABS: Glucose,Whole Blood 213 mg/dL (70-110)
[2022-04-05] MEDS: HYDROmorphone 1 MG/ML 1 ML SYRINGE IVP PRN ×4 (01:56→23:56)
[2022-04-05] MEDS: ONDANSETRON 4 MG/2 ML VIAL IVP PRN (05:05)
[2022-04-05 06:16] LABS: Glucose,Whole Blood 82 mg/dL (70-110)
[2022-04-05] MEDS: INSULIN ASPART (NovoLOG) 100 UNIT/ML VIAL SQ SCH ×4 (06:16→20:45)
[2022-04-05] MEDS: CALCIUM ACETATE 667 MG TAB PO SCH ×3 (06:46→17:08)
[2022-04-05] MEDS: PANTOPRAZOLE 40 MG TABLET PO SCH (06:46)
--- NOTE | 2022-04-05 09:06 | CDI ---
Documentation Clarification Form Date: 04/06/2022 08:53:20 AM From: Tamica Hale CCS, CCDS Admit Date: 04/02/2022 10:46:00 PM Patient Name: Patsy Pizano Visit Number: [id number] Discharge Date: ATTENTION: The Clinical Documentation Specialists (CDI) and [facility] Coding Staff appreciate your assistance in clarifying documentation. Please respond to the clarification below the line at the bottom and electronically sign. The CDI & [facility] Coding staff will review the response and follow-up if needed. Please note: Queries are made part of the Legal Health Record. If you have any questions, please contact the author of this message via ITS. Dr. Roque Buckner: Systolic Congestive Heart Failure is documented in the 04/02 ED Impression without further specificity. Additional information regarding the Acuity of CHF is requested. History/Risk Factors per the 04/03 H/P: Uncontrolled Type I IDDM, Stage 5 CKD, Hypertension. Clinical Indicators: Presented to the ED on 04/02 with SOB, had Dialysis yesterday and seen in the ED earlier today with SOB & chest pain. Presented with worsening SOB and nausea. Admit with Systolic CHF, Acute Febrile Illness, CKD and Hyperglycemia. 04/02 VS: T 101.3, P 87, R 18 - 21 - 30; BP 198/91, 215/103; PO 84 RA, 96 RA, 92 4L nc, 100% on 50% BiPAP. BNP: 110,000 Echocardiogram Results: (most recent 02/18/2022): EF 50-55%, Mild concentric left ventricular hypertrophy, Mild TR. 04/02 CXR: Stable cardiomegaly with mild pulmonary vascular congestion and mils interstitial edema. Correlate for acute exacerbation of CHF. Treatment 04/02: CHF Clinical Protocol, Flores Catheter insertion, Consults to Cardiac Rehab and Dietitian for Heart Failure, IV Lasix 40 mg x1 then q8, INH Ventolin 2.5 mg QID/PRN. In your professional opinion, can you please clarify the Acuity of CHF if known? [ ] Acute Systolic Heart Failure [ ] Chronic Systolic Heart Failure [ ] Acute on Chronic Systolic Heart Failure [ ] Acute Diastolic Heart Failure [ ] Chronic Diastolic Heart Failure [ ] Acute on Chronic Diastolic Heart Failure [ ] Acute Systolic & Diastolic Heart Failure [ ] Chronic Systolic & Diastolic Heart Failure [ ] Acute on Chronic Heart Failure Systolic & Diastolic Heart Failure [ ] Other, please specify: [ ] Unable to determine (Template Last Revised: June 2020) MTDD
--- NOTE | 2022-04-05 09:14 | CDI ---
Documentation Clarification Form Date: 04/05/2022 09:06:00 AM From: Tamica Hale CCS, CCDS Admit Date: 04/02/2022 10:46:00 PM Patient Name: Patsy Pizano Visit Number: [id number] Discharge Date: ATTENTION: The Clinical Documentation Specialists (CDI) and [facility] Coding Staff appreciate your assistance in clarifying documentation. Please respond to the clarification below the line at the bottom and electronically sign. The CDI & [facility] Coding staff will review the response and follow-up if needed. Please note: Queries are made part of the Legal Health Record. If you have any questions, please contact the author of this message via ITS. Dr. Roque Buckner: Hypoxia needing O2 & BiPAP is documented in the 04/03 Nephrology Consult Based on this information and the findings below, is there an additional diagnosis that is clinically appropriate for this patient? History/Risk Factors per the 04/03 H/P: Uncontrolled Type I IDDM, Stage 5 CKD, Hypertension. Clinical Indicators: Presented to the ED on 04/02 with SOB, had Dialysis yesterday and seen in the ED earlier today with SOB & chest pain. Presented with worsening SOB and nausea. Admit with Systolic CHF, Acute Febrile Illness, CKD and Hyperglycemia. 04/02 VS: T 101.3, P 87, R 18 - 21 - 30; BP 198/91, 215/103; PO 84 RA, 96 RA, 92 4L nc, 100% on 50% BiPAP. 04/02 LAB: Na 128, K 5.5, Chl 89, CO2 15, BUN 55, Creatinine 5.95, Glucose 672, Lactic Acid 2.2, AST 105, ALT 126, Alk Phos 417. BNP: 110,000 Echocardiogram Results: (most recent 02/18/2022): EF 50-55%, Mild concentric left ventricular hypertrophy, Mild TR. 04/02 CXR: Stable cardiomegaly with mild pulmonary vascular congestion and mils interstitial edema. Correlate for acute exacerbation of CHF. Treatment 04/02: O2 4L - BiPAP 50%, CHF Clinical Protocol, Flores Catheter insertion, Consults to Cardiac Rehab and Dietitian for Heart Failure, IV Lasix 40 mg x1 then q8, INH Ventolin 2.5 mg QID/PRN, IV Insulin 10 units x1, IV Ativan 1 mg x1, IV Rocephin 1,000 mg x1, Nitropaste x1. Is there an additional diagnosis that is clinically appropriate for this patient? [ ] Acute Hypoxic Respiratory Failure [ ] Acute Respiratory Insufficiency [ ] Other Diagnosis, please specify [ ] Unable to determine (Template Last Revised: July 2020) MTDD
[2022-04-05] MEDS: buPROPion SR 150 MG TABLET.ER PO SCH ×2 (09:34→20:45)
[2022-04-05] MEDS: ATORVASTATIN 40 MG TAB PO SCH (09:34)
[2022-04-05] MEDS: ASPIRIN 81 MG PO SCH (09:35)
[2022-04-05] MEDS: CYANOCOBALAMIN 500 MCG TAB PO SCH (09:35)
[2022-04-05] MEDS: carvediloL 12.5 MG TAB PO SCH ×2 (09:35→20:45)
[2022-04-05] MEDS: TORSEMIDE 20 MG TAB PO SCH (09:35)
[2022-04-05] MEDS: ESCITALOPRAM 20 MG TAB PO SCH (09:35)
--- NOTE | 2022-04-05 09:58 | P.PN ---
Subjective Patient is seen in follow-up for end-stage renal disease. She is maintained on hemodialysis on Monday was a Monday schedule. Underwent hemodialysis yesterday with 4.5 L ultrafiltration. Hemodynamically stable. No active complaints at this time. Requesting additional treatment of hemodialysis today for fluid removal. Vital signs are stable. General: Awake. No acute distress. HEENT: Head exam is unremarkable. LUNGS: Breath sounds decreased. HEART: Rate and Rhythm are regular. ABDOMEN: Soft, no distention. EXTREMITITES: No edema. Objective - Vital Signs Vital signs: Vital Signs Temp 98.2 F 04/05/22 09:33 Pulse 70 04/05/22 09:33 Resp 16 04/05/22 09:33 BP 145/77 04/05/22 09:33 Pulse Ox 100 04/05/22 09:33 FiO2 50 04/03/22 07:34 Intake & Output 04/04/22 04/05/22 04/05/22 18:59 06:59 18:59 Intake Total 540 480 Output Total 4500 0 Balance -3960 480 Weight 50.2 kg 47.5 kg Intake: Oral 240 480 Hemodialysis 300 Output: Urine 0 Hemodialysis 4500 Other: Voiding Method Toilet # Voids 1 - Labs CBC & Chem 7: 04/03/22 07:53 04/03/22 07:53 Labs: Abnormal Lab Results - Last 24 Hours (Table) 04/03/22 04/04/22 04/04/22 Range/Units 07:53 10:32 13:03 POC Glucose (mg/dL) 229 H 412 H (70-110) mg/dL Iron 39 L (50-170) ug/dL Ferritin 7275.0 H (10.0-291.0) ng/mL 04/04/22 04/04/22 04/05/22 Range/Units 16:12 20:32 00:30 POC Glucose (mg/dL) 345 H 323 H 213 H (70-110) mg/dL Iron (50-170) ug/dL Ferritin (10.0-291.0) ng/mL Microbiology - Last 24 Hours (Table) 04/03/22 00:00 Blood Culture - Preliminary Blood No Growth after 48 hours 04/03/22 00:20 Blood Culture - Preliminary Blood No Growth after 48 hours Assessment and Plan Plan: Assessment: 1. End-stage renal disease maintained on hemodialysis on Monday schedule. 2. Volume overload. Improved post ultrafiltration. 3. Hypertension with chronic kidney disease. Blood pressures labile. Currently stable. 4. Diabetes mellitus. Brittle. 5. 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 6. History of pericardial effusion. 7. Anemia of chronic kidney disease. Iron deficiency noted. Plan: Hemodialysis today for ultrafiltration and another treatment tomorrow per her outpatient schedule. Stopped hydralazine due to history of pericardial effusion. Stopped losartan due to frequent hyperkalemia. Maintain Coreg, clonidine and nifedipine. Maintain torsemide. Add IV iron.
--- NOTE | 2022-04-05 11:06 | PN ---
PROGRESS NOTE DATE OF SERVICE: 04/04/2022 CHIEF COMPLAINT: Uncontrolled hypertension and diabetes. HISTORY OF PRESENT ILLNESS: This lady is being dialyzed. Blood pressures are much improved as are her blood sugars. REVIEW OF SYSTEMS: She has no new complaints. PHYSICAL EXAMINATION: CHEST: Clear. CARDIAC: Normal. ABDOMEN: Soft, nontender. IMPRESSION: 1. Uncontrolled hypertension and diabetes. 2. Chronic renal failure. 3. Low back pain. PLAN: Continue with dialysis, and if her numbers remain under good control, possibly home tomorrow. MMODL / IJN: [id number] /
[2022-04-05 11:45] LABS: Glucose,Whole Blood 458 mg/dL (70-110)
--- NOTE | 2022-04-05 11:45 | PN ---
PROGRESS NOTE DATE OF SERVICE: 04/03/2022 CHIEF COMPLAINT: Uncontrolled hypertension and diabetes. HISTORY OF PRESENT ILLNESS: This lady is doing fairly well, but her blood pressure is still quite high. Sugars are also coming down, but still little elevated. It looks as though she may run a temperature of a 101.3. REVIEW OF SYSTEMS: She denies any cough, shortness of breath, abdominal pain, or any other abnormalities to suggest a fever. PHYSICAL EXAMINATION: CHEST: Clear. CARDIAC: Normal. ABDOMEN: Soft and nontender. IMPRESSION: 1. Uncontrolled hypertension. 2. Uncontrolled diabetes. 3. Chronic renal failure. 4. Fever of unknown origin. PLAN: 1. Continue with efforts to control blood sugars and hypertension. 2. Blood cultures. 3. Follow temperatures. 4. Continue with dialysis. MMODL / IJN: [id number] /
[2022-04-05] MEDS: SODIUM FERRIC GLUCONAT-SUCROSE 125 MG in SODIUM CHLORIDE 0.9% 100 ML IVPB SCH (12:25)
[2022-04-05] MEDS: LORazepam 1 MG TAB PO PRN (13:06)
[2022-04-05 16:33] LABS: Glucose,Whole Blood 232 mg/dL (70-110)
[2022-04-05 20:05] LABS: Glucose,Whole Blood 258 mg/dL (70-110)
[2022-04-05] MEDS: MELATONIN 5 MG TABLET PO SCH (20:45)
[2022-04-06 02:16] LABS: Glucose,Whole Blood 578 mg/dL (70-110)
[2022-04-06] MEDS: ONDANSETRON 4 MG/2 ML VIAL IVP PRN ×2 (02:19→22:15)
[2022-04-06] MEDS ORDERED: INSULIN ASPART (NovoLOG) 100 UNIT/ML VIAL SQ STA (02:27)
[2022-04-06 03:17] LABS: Glucose,Whole Blood 579 mg/dL (70-110)
[2022-04-06 06:17] LABS: Glucose,Whole Blood 372 mg/dL (70-110)
[2022-04-06] MEDS: INSULIN ASPART (NovoLOG) 100 UNIT/ML VIAL SQ SCH ×4 (06:30→20:32)
[2022-04-06] MEDS: PANTOPRAZOLE 40 MG TABLET PO SCH (06:30)
[2022-04-06] MEDS: HYDROmorphone 1 MG/ML 1 ML SYRINGE IVP PRN ×3 (06:30→19:38)
[2022-04-06] MEDS: CALCIUM ACETATE 667 MG TAB PO SCH ×3 (06:30→17:20)
[2022-04-06] MEDS ORDERED: INSULIN DETEMIR (LEVEMIR) 100 UNIT/ML SYR SQ SCH (07:00)
[2022-04-06 08:27] LABS: Anisocytosis Slight; Basophils % (A) 1 %; Eosinophils # (A) 0.3 k/uL (0-0.7); Eosinophils % (A) 8 %; HCT 25.9 % (34.0-46.0); HGB 8.3 gm/dL (11.4-16.0); Hypochromasia Slight; Lymphocytes # (A) 0.6 k/uL (1.0-4.8); Lymphocytes % (A) 16 %; MCH 29.9 pg (25.0-35.0); MCHC 32.1 g/dL (31.0-37.0); Monocytes # (A) 0.3 k/uL (0-1.0); Monocytes % (A) 7 %; Neutrophils # (A) 2.6 k/uL (1.3-7.7); Neutrophils % (A) 65 %; Platelet Count 269 k/uL (150-450); Poikilocytosis Slight; RBC 2.78 m/uL (3.80-5.40); RDW 19.2 % (11.5-15.5)
[2022-04-06 08:35] LABS: Potassium 4.3 mmol/L (3.5-5.1)
--- NOTE | 2022-04-06 08:52 | PN ---
PROGRESS NOTE DATE OF SERVICE: 04/05/2022 CHIEF COMPLAINT: Uncontrolled hypertension. HISTORY OF PRESENT ILLNESS: This lady is doing fairly well in terms of blood pressure. It has been under relatively good control. Sugars are still fluctuating. She is still complaining of back pain. PHYSICAL EXAMINATION: GENERAL: She remains pale and chronically ill. SKIN: Dry. CHEST: Clear. CARDIAC: Normal. ABDOMEN: Soft, nontender. IMPRESSION: 1. Uncontrolled hypertension. 2. Uncontrolled type 1 insulin-dependent diabetes mellitus. 3. Stage 5 chronic kidney disease. PLAN: Increase Lantus from 10 to 12 units and she can probably be discharged soon. MMODL / IJN: [id number] /
[2022-04-06] MEDS ORDERED: diphenhydrAMINE 50 MG/ML 1 ML VIAL IVP STA (09:07)
[2022-04-06] MEDS ORDERED: cloNIDine HCL 0.1 MG TAB PO PRN (09:09)
--- NOTE | 2022-04-06 09:10 | P.PN ---
Subjective Patient is seen in follow-up for end-stage renal disease. She is maintained on hemodialysis on Monday was a Monday schedule. Underwent extra treatment of hemodialysis yesterday with 2.5 L ultra filtration. No active complaints at this time. Scheduled for dialysis today. Vital signs are stable. General: Awake. No acute distress. HEENT: Head exam is unremarkable. LUNGS: Breath sounds decreased. HEART: Rate and Rhythm are regular. ABDOMEN: Soft, no distention. EXTREMITITES: No edema. Objective - Vital Signs Vital signs: Vital Signs Temp 98.2 F 04/06/22 03:33 Pulse 82 04/06/22 03:33 Resp 16 04/06/22 03:33 BP 174/86 04/06/22 03:33 Pulse Ox 91 L 04/06/22 03:33 FiO2 50 04/03/22 07:34 Intake & Output 04/05/22 04/06/22 04/06/22 18:59 06:59 18:59 Intake Total 500 780 Output Total 2500 0 Balance -2000 780 Intake: Oral 780 Hemodialysis 500 Output: Urine 0 Hemodialysis 2500 Other: Voiding Method Toilet Toilet # Voids 1 - Labs CBC & Chem 7: 04/06/22 07:30 04/06/22 07:30 Labs: Abnormal Lab Results - Last 24 Hours (Table) 04/05/22 04/05/22 04/05/22 Range/Units 11:43 16:31 20:04 RBC (3.80-5.40) m/uL Hgb (11.4-16.0) gm/dL Hct (34.0-46.0) % RDW (11.5-15.5) % Lymphocytes # (1.0-4.8) k/uL Sodium (137-145) mmol/L BUN (7-17) mg/dL Creatinine (0.52-1.04) mg/dL Glucose (74-99) mg/dL POC Glucose (mg/dL) 458 H 232 H 258 H (70-110) mg/dL 04/06/22 04/06/22 04/06/22 Range/Units 02:14 03:16 06:16 RBC (3.80-5.40) m/uL Hgb (11.4-16.0) gm/dL Hct (34.0-46.0) % RDW (11.5-15.5) % Lymphocytes # (1.0-4.8) k/uL Sodium (137-145) mmol/L BUN (7-17) mg/dL Creatinine (0.52-1.04) mg/dL Glucose (74-99) mg/dL POC Glucose (mg/dL) 578 H 579 H 372 H (70-110) mg/dL 04/06/22 04/06/22 Range/Units 07:30 07:30 RBC 2.78 L (3.80-5.40) m/uL Hgb 8.3 L (11.4-16.0) gm/dL Hct 25.9 L (34.0-46.0) % RDW 19.2 H (11.5-15.5) % Lymphocytes # 0.6 L (1.0-4.8) k/uL Sodium 133 L (137-145) mmol/L BUN 32 H (7-17) mg/dL Creatinine 4.78 H (0.52-1.04) mg/dL Glucose 291 H (74-99) mg/dL POC Glucose (mg/dL) (70-110) mg/dL Microbiology - Last 24 Hours (Table) 04/03/22 00:20 Blood Culture - Preliminary Blood No Growth after 72 hours 04/03/22 00:00 Blood Culture - Preliminary Blood No Growth after 72 hours Assessment and Plan Plan: Assessment: 1. End-stage renal disease maintained on hemodialysis on Monday schedule. 2. Volume overload. Improved post ultrafiltration. 3. Hypertension with chronic kidney disease. Blood pressures labile. Currently stable. 4. Diabetes mellitus. Brittle. 5. 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 6. History of pericardial effusion. 7. Anemia of chronic kidney disease. Iron deficiency noted. Plan: Hemodialysis today. Stopped hydralazine due to history of pericardial effusion. Stopped losartan due to frequent hyperkalemia. Maintain Coreg, clonidine and nifedipine. Maintain torsemide. Maintain IV iron. If blood pressure is staying persistently above 140/90, will increase dose of Coreg. Has not received blood pressure meds today as she scheduled to undergo hemodialysis.
[2022-04-06] MEDS: SODIUM FERRIC GLUCONAT-SUCROSE 125 MG in SODIUM CHLORIDE 0.9% 100 ML IVPB SCH (09:37)
[2022-04-06] MEDS: LORazepam 1 MG TAB PO PRN (09:44)
--- NOTE | 2022-04-06 10:04 | MISC ---
MISCELLANOUS REPORT Respiratory failure, unable to determine. MMODL / IJN: [id number] /
[2022-04-06 11:47] LABS: Glucose,Whole Blood 326 mg/dL (70-110)
[2022-04-06] MEDS: ESCITALOPRAM 20 MG TAB PO SCH (12:57)
[2022-04-06] MEDS: CYANOCOBALAMIN 500 MCG TAB PO SCH (12:57)
[2022-04-06] MEDS: carvediloL 12.5 MG TAB PO SCH ×2 (12:57→19:37)
[2022-04-06] MEDS: ATORVASTATIN 40 MG TAB PO SCH (12:57)
[2022-04-06] MEDS: ASPIRIN 81 MG PO SCH (12:58)
[2022-04-06] MEDS: buPROPion SR 150 MG TABLET.ER PO SCH ×2 (12:58→20:32)
[2022-04-06] MEDS: TORSEMIDE 20 MG TAB PO SCH (12:58)
[2022-04-06 16:37] LABS: Glucose,Whole Blood 571 mg/dL (70-110)
[2022-04-06] MEDS: diphenhydrAMINE 50 MG/ML 1 ML VIAL IVP PRN (19:38)
[2022-04-06] MEDS: MELATONIN 5 MG TABLET PO SCH (19:38)
[2022-04-06 20:16] LABS: Glucose,Whole Blood 378 mg/dL (70-110)
[2022-04-06] MEDS: INSULIN DETEMIR (LEVEMIR) 100 UNIT/ML SYR SQ SCH (20:32)
[2022-04-06 23:26] LABS: Glucose,Whole Blood 84 mg/dL (70-110)
[2022-04-07 02:08] LABS: Glucose,Whole Blood 184 mg/dL (70-110)
[2022-04-07] MEDS: diphenhydrAMINE 50 MG/ML 1 ML VIAL IVP PRN ×4 (02:19→22:17)
[2022-04-07] MEDS: HYDROmorphone 1 MG/ML 1 ML SYRINGE IVP PRN ×4 (02:20→22:17)
[2022-04-07 05:58] LABS: Glucose,Whole Blood 149 mg/dL (70-110)
[2022-04-07] MEDS: INSULIN ASPART (NovoLOG) 100 UNIT/ML VIAL SQ SCH ×4 (06:10→20:40)
[2022-04-07] MEDS: CALCIUM ACETATE 667 MG TAB PO SCH ×3 (06:11→17:44)
[2022-04-07] MEDS: PANTOPRAZOLE 40 MG TABLET PO SCH (06:11)
--- NOTE | 2022-04-07 09:10 | P.PN ---
Subjective Patient is seen in follow-up for end-stage renal disease. She is maintained on hemodialysis on Monday was a Monday schedule. Has received daily dialysis this week to challenge ultrafiltration. No active complaints at this time. Requesting another treatment of dialysis today. Blood pressure stable. Vital signs are stable. General: Awake. No acute distress. HEENT: Head exam is unremarkable. LUNGS: Breath sounds decreased. HEART: Rate and Rhythm are regular. ABDOMEN: Soft, no distention. EXTREMITITES: No edema. Objective - Vital Signs Vital signs: Vital Signs Temp 97.9 F 04/07/22 03:46 Pulse 75 04/07/22 03:46 Resp 16 04/07/22 03:46 BP 133/54 04/07/22 03:46 Pulse Ox 93 L 04/07/22 08:04 FiO2 50 04/03/22 07:34 Intake & Output 04/06/22 04/07/22 04/07/22 18:59 06:59 18:59 Intake Total 716 780 240 Output Total 4000 0 Balance -3284 780 240 Weight 46.1 kg Intake: Oral 716 780 240 Output: Urine 0 Hemodialysis 4000 Other: Voiding Method Toilet Toilet - Labs CBC & Chem 7: 04/06/22 07:30 04/06/22 07:30 Labs: Abnormal Lab Results - Last 24 Hours (Table) 04/06/22 04/06/22 04/06/22 Range/Units 11:45 16:35 20:14 POC Glucose (mg/dL) 326 H 571 H 378 H (70-110) mg/dL 04/07/22 04/07/22 Range/Units 02:06 05:56 POC Glucose (mg/dL) 184 H 149 H (70-110) mg/dL Microbiology - Last 24 Hours (Table) 04/03/22 00:20 Blood Culture - Preliminary Blood No Growth after 96 hours 04/03/22 00:00 Blood Culture - Preliminary Blood No Growth after 96 hours Assessment and Plan Plan: Assessment: 1. End-stage renal disease maintained on hemodialysis on Monday schedule. 2. Volume overload. Improved post ultrafiltration. 3. Hypertension with chronic kidney disease. Blood pressures labile. Currently stable. 4. Diabetes mellitus. Brittle. 5. 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 6. History of pericardial effusion. 7. Anemia of chronic kidney disease. Iron deficiency noted. Plan: Hemodialysis today and again tomorrow. Stopped hydralazine due to history of pericardial effusion. Stopped losartan due to frequent hyperkalemia. Maintain Coreg, clonidine and nifedipine. Maintain torsemide. Maintain IV iron. If blood pressure is staying persistently above 140/90, will increase dose of Coreg.
[2022-04-07] MEDS: SODIUM FERRIC GLUCONAT-SUCROSE 125 MG in SODIUM CHLORIDE 0.9% 100 ML IVPB SCH (09:58)
[2022-04-07] MEDS: CYANOCOBALAMIN 500 MCG TAB PO SCH (09:58)
[2022-04-07] MEDS: ATORVASTATIN 40 MG TAB PO SCH (09:58)
[2022-04-07] MEDS: ESCITALOPRAM 20 MG TAB PO SCH (09:59)
[2022-04-07] MEDS: carvediloL 12.5 MG TAB PO SCH ×2 (09:59→20:39)
[2022-04-07] MEDS: TORSEMIDE 20 MG TAB PO SCH (10:00)
[2022-04-07] MEDS: ASPIRIN 81 MG PO SCH (10:00)
[2022-04-07] MEDS: buPROPion SR 150 MG TABLET.ER PO SCH ×2 (10:00→20:41)
[2022-04-07 11:33] LABS: Glucose,Whole Blood 493 mg/dL (70-110)
--- NOTE | 2022-04-07 12:02 | PN ---
PROGRESS NOTE DATE OF SERVICE: 04/07/2022 CHIEF COMPLAINT: Uncontrolled diabetes and hypertension. HISTORY OF PRESENT ILLNESS: This lady is doing fairly well. The insulin has been increased and her blood sugars are being watched. Blood pressure is under much better control. PHYSICAL EXAMINATION: CHEST: Clear. CARDIAC: Normal. ABDOMEN: Soft, nontender. IMPRESSION: 1. Uncontrolled diabetes. 2. Uncontrolled hypertension. 3. Stage 5 chronic kidney disease. PLAN: Continue to monitor blood sugars and blood pressure and she probably can go home soon. MMODL / IJN: [id number] /
--- NOTE | 2022-04-07 12:23 | PN ---
PROGRESS NOTE DATE OF SERVICE: 04/06/2022 CHIEF COMPLAINT: Renal failure and uncontrolled hypertension, and diabetes. HISTORY OF PRESENT ILLNESS: This lady is doing fairly well. Blood pressure has been a bit more stable. Blood sugars are still fluctuating widely. PHYSICAL EXAMINATION: CHEST: Clear. CARDIAC: Normal. ABDOMEN: Soft. IMPRESSION: 1. Uncontrolled hypertension. 2. Uncontrolled type 1 diabetes. 3. Stage 5 chronic kidney disease. PLAN: 1. Switch her Levemir to p.m. at her request. 2. IV Benadryl p.r.n. at her request. MMODL / IJN: [id number] /
[2022-04-07 16:38] LABS: Glucose,Whole Blood 384 mg/dL (70-110)
[2022-04-07] MEDS: ONDANSETRON 4 MG/2 ML VIAL IVP PRN (17:45)
[2022-04-07 20:08] LABS: Glucose,Whole Blood 430 mg/dL (70-110)
[2022-04-07] MEDS: MELATONIN 5 MG TABLET PO SCH (20:39)
[2022-04-07] MEDS: INSULIN DETEMIR (LEVEMIR) 100 UNIT/ML SYR SQ SCH (20:40)
[2022-04-08 01:58] LABS: Glucose,Whole Blood 43 mg/dL (70-110)
[2022-04-08 02:43] LABS: Glucose,Whole Blood 83 mg/dL (70-110)
[2022-04-08] MEDS: HYDROmorphone 1 MG/ML 1 ML SYRINGE IVP PRN ×3 (04:16→17:24)
[2022-04-08] MEDS: diphenhydrAMINE 50 MG/ML 1 ML VIAL IVP PRN ×3 (04:17→17:24)
[2022-04-08 06:14] LABS: Glucose,Whole Blood 111 mg/dL (70-110)
[2022-04-08] MEDS: CALCIUM ACETATE 667 MG TAB PO SCH ×3 (06:27→17:26)
[2022-04-08] MEDS: PANTOPRAZOLE 40 MG TABLET PO SCH (06:28)
[2022-04-08] MEDS: INSULIN ASPART (NovoLOG) 100 UNIT/ML VIAL SQ SCH ×3 (06:28→17:26)
[2022-04-08] MEDS: ESCITALOPRAM 20 MG TAB PO SCH (08:33)
[2022-04-08] MEDS: CYANOCOBALAMIN 500 MCG TAB PO SCH (08:33)
[2022-04-08] MEDS: ASPIRIN 81 MG PO SCH (08:33)
[2022-04-08] MEDS: ATORVASTATIN 40 MG TAB PO SCH (08:33)
[2022-04-08] MEDS: TORSEMIDE 20 MG TAB PO SCH (08:34)
[2022-04-08] MEDS: SODIUM FERRIC GLUCONAT-SUCROSE 125 MG in SODIUM CHLORIDE 0.9% 100 ML IVPB SCH (08:35)
[2022-04-08] MEDS: buPROPion SR 150 MG TABLET.ER PO SCH (08:35)
[2022-04-08] MEDS: carvediloL 12.5 MG TAB PO SCH (08:47)
--- NOTE | 2022-04-08 09:31 | P.PN ---
Subjective Patient is seen in follow-up for end-stage renal disease. She is maintained on hemodialysis on Monday was a Monday schedule. Has received daily dialysis this week to challenge ultrafiltration. No active complaints at this time. Scheduled for dialysis today. Hemodynamically stable. Vital signs are stable. General: Awake. No acute distress. HEENT: Head exam is unremarkable. LUNGS: Breath sounds decreased. HEART: Rate and Rhythm are regular. ABDOMEN: Soft, no distention. EXTREMITITES: No edema. Objective - Vital Signs Vital signs: Vital Signs Temp 98.2 F 04/08/22 08:00 Pulse 73 04/08/22 08:00 Resp 18 04/08/22 08:00 BP 127/64 04/08/22 08:00 Pulse Ox 99 04/08/22 08:00 FiO2 50 04/03/22 07:34 Intake & Output 04/07/22 04/08/22 04/08/22 18:59 06:59 18:59 Intake Total 1520 100 360 Output Total 2700 Balance -1180 100 360 Weight 48.7 kg Intake: Intake, IV Titration 100 Amount Sodium Ferric Gluconat- 100 Sucrose 125 mg In Sodium Chloride 0.9% 100 ml @ 100 mls/hr IVPB DAILY [facility] Rx#:[id number] Oral 720 100 360 Hemodialysis 700 Output: Hemodialysis 2700 Other: Voiding Method Toilet Toilet Toilet - Labs CBC & Chem 7: 04/06/22 07:30 04/06/22 07:30 Labs: Abnormal Lab Results - Last 24 Hours (Table) 04/07/22 04/07/22 04/07/22 Range/Units 11:31 16:37 20:07 POC Glucose (mg/dL) 493 H 384 H 430 H (70-110) mg/dL 04/08/22 04/08/22 Range/Units 01:56 06:12 POC Glucose (mg/dL) 43 L 111 H (70-110) mg/dL Microbiology - Last 24 Hours (Table) 04/03/22 00:00 Blood Culture - Preliminary Blood No Growth after 120 hours 04/03/22 00:20 Blood Culture - Preliminary Blood No Growth after 120 hours Assessment and Plan Plan: Assessment: 1. End-stage renal disease maintained on hemodialysis on Monday schedule. 2. Volume overload. Improved post ultrafiltration. 3. Hypertension with chronic kidney disease. Blood pressures labile. C urrently stable. 4. Diabetes mellitus. Brittle. 5. 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 6. History of pericardial effusion. 7. Anemia of chronic kidney disease. Iron deficiency noted. Plan: Hemodialysis today. Stopped hydralazine due to history of pericardial effusion. Stopped losartan due to frequent hyperkalemia. Maintain Coreg, clonidine and nifedipine. Maintain torsemide. Maintain IV iron. Add Aranesp. If blood pressure is staying persistently above 140/90, will increase dose of Coreg.
[2022-04-08] MEDS ORDERED: DARBEPOETIN ALFA 40 MCG/0.4 ML SYRINGE SQ SCH (09:45)
[2022-04-08 11:30] LABS: Glucose,Whole Blood 376 mg/dL (70-110)
[2022-04-08 16:17] VITALS: BP 146/86; PULSE 81; RESP 19; TEMP 97.8
[2022-04-08 16:31] LABS: Glucose,Whole Blood 351 mg/dL (70-110)
--- NOTE | 2022-04-08 21:41 | DS ---
DISCHARGE SUMMARY CHIEF COMPLAINT: Uncontrolled hypertension, uncontrolled diabetes, and renal failure. HISTORY OF PRESENT ILLNESS/PHYSICAL EXAM: The details of this lady's history can be found in her original workup. LABORATORY STUDIES: While she was in the hospital, she had laboratory studies, details of which can be found in the laboratory section of her chart. COURSE IN THE HOSPITAL: After admission, she was placed on bedrest on intravenous fluids and efforts were once again turned to trying to bring her blood sugars and blood pressure under better control. Blood pressure slowly came down. She was dialyzed every other day while she was in the hospital. Blood sugars have always been erratic and remained so, but they were generally much improved over her frequent elevations to over 600. She was doing fairly well and about as stable as she can be on the and she will be sent home. She will be followed up in several days in the office. FINAL DIAGNOSES: 1. Uncontrolled hypertension. 2. Hypertensive urgency. 3. Uncontrolled type 1 insulin-dependent diabetes mellitus. 4. Amblyopia. 5. Stage 5 chronic kidney disease, on dialysis. OPERATIONS: None. CONSULTATIONS: None. She is improved. MMODL / IJN: [id number] /
--- NOTE | 2022-04-13 07:04 | CDI ---
Documentation Clarification Form Date: 04/05/2022 09:06:00 AM From: Tamica Hale CCS, CCDS Admit Date: 04/02/2022 10:46:00 PM Patient Name: Patsy Pizano Visit Number: [id number] Discharge Date: 04/08/2022 06:11:00 PM ATTENTION: The Clinical Documentation Specialists (CDI) and [facility] Coding Staff appreciate your assistance in clarifying documentation. Please respond to the clarification below the line at the bottom and electronically sign. The CDI & [facility] Coding staff will review the response and follow-up if needed. Please note: Queries are made part of the Legal Health Record. If you have any questions, please contact the author of this message via ITS. Dr. Roque Buckner: Hypoxia needing O2 & BiPAP is documented in the 04/03 Nephrology Consult Based on this information and the findings below, is there an additional diagnosis that is clinically appropriate for this patient? History/Risk Factors per the 04/03 H/P: Uncontrolled Type I IDDM, Stage 5 CKD, Hypertension. Clinical Indicators: Presented to the ED on 04/02 with SOB, had Dialysis yesterday and seen in the ED earlier today with SOB & chest pain. Presented with worsening SOB and nausea. Admit with Systolic CHF, Acute Febrile Illness, CKD and Hyperglycemia. 04/02 VS: T 101.3, P 87, R 18 - 21 - 30; BP 198/91, 215/103; PO 84 RA, 96 RA, 92 4L nc, 100% on 50% BiPAP. 04/02 LAB: Na 128, K 5.5, Chl 89, CO2 15, BUN 55, Creatinine 5.95, Glucose 672, Lactic Acid 2.2, AST 105, ALT 126, Alk Phos 417. BNP: 110,000 Echocardiogram Results: (most recent 02/18/2022): EF 50-55%, Mild concentric left ventricular hypertrophy, Mild TR. 04/02 CXR: Stable cardiomegaly with mild pulmonary vascular congestion and mils interstitial edema. Correlate for acute exacerbation of CHF. Treatment 04/02: O2 4L - BiPAP 50%, CHF Clinical Protocol, Flores Catheter insertion, Consults to Cardiac Rehab and Dietitian for Heart Failure, IV Lasix 40 mg x1 then q8, INH Ventolin 2.5 mg QID/PRN, IV Insulin 10 units x1, IV Ativan 1 mg x1, IV Rocephin 1,000 mg x1, Nitropaste x1. Is there an additional diagnosis that is clinically appropriate for this patient? [ ] Acute Hypoxic Respiratory Failure [ ] Acute Respiratory Insufficiency [ ] Other Diagnosis, please specify [ ] Unable to determine (Template Last Revised: July 2020) MTDD
--- NOTE | 2022-04-20 07:41 | CDI ---
Documentation Clarification Form Date: 04/06/2022 08:53:00 AM From: Tamica Hale CCS, CCDS Admit Date: 04/02/2022 10:46:00 PM Patient Name: Patsy Pizano Visit Number: [id number] Discharge Date: 04/08/2022 06:11:00 PM ATTENTION: The Clinical Documentation Specialists (CDI) and [facility] Coding Staff appreciate your assistance in clarifying documentation. Please respond to the clarification below the line at the bottom and electronically sign. The CDI & [facility] Coding staff will review the response and follow-up if needed. Please note: Queries are made part of the Legal Health Record. If you have any questions, please contact the author of this message via ITS. Dr. Roque Buckner: Systolic Congestive Heart Failure is documented in the 04/02 ED Impression without further specificity. Additional information regarding the Acuity of CHF is requested. History/Risk Factors per the 04/03 H/P: Uncontrolled Type I IDDM, Stage 5 CKD, Hypertension. Clinical Indicators: Presented to the ED on 04/02 with SOB, had Dialysis yesterday and seen in the ED earlier today with SOB & chest pain. Presented with worsening SOB and nausea. Admit with Systolic CHF, Acute Febrile Illness, CKD and Hyperglycemia. 04/02 VS: T 101.3, P 87, R 18 - 21 - 30; BP 198/91, 215/103; PO 84 RA, 96 RA, 92 4L nc, 100% on 50% BiPAP. BNP: 110,000 Echocardiogram Results: (most recent 02/18/2022): EF 50-55%, Mild concentric left ventricular hypertrophy, Mild TR. 04/02 CXR: Stable cardiomegaly with mild pulmonary vascular congestion and mils interstitial edema. Correlate for acute exacerbation of CHF. Treatment 04/02: CHF Clinical Protocol, Flores Catheter insertion, Consults to Cardiac Rehab and Dietitian for Heart Failure, IV Lasix 40 mg x1 then q8, INH Ventolin 2.5 mg QID/PRN. In your professional opinion, can you please clarify the Acuity of CHF if known? [ ] Acute Systolic Heart Failure [ ] Chronic Systolic Heart Failure [ ] Acute on Chronic Systolic Heart Failure [ ] Acute Diastolic Heart Failure [ ] Chronic Diastolic Heart Failure [ ] Acute on Chronic Diastolic Heart Failure [ ] Acute Systolic & Diastolic Heart Failure [ ] Chronic Systolic & Diastolic Heart Failure [ ] Acute on Chronic Heart Failure Systolic & Diastolic Heart Failure [ ] Other, please specify: [ ] Unable to determine (Template Last Revised: June 2020) MTDD
--- NOTE | 2022-04-30 06:10 | MISC ---
MISCELLANOUS REPORT OTHER DIAGNOSIS: Hypernatremia. MMODL / IJN: [id number] /
--- NOTE | 2022-04-30 06:13 | MISC ---
MISCELLANOUS REPORT Chronic systolic and diastolic failure. MMODL / IJN: [id number] /
--- NOTE | 2022-05-02 08:02 | CDI ---
Documentation Clarification Form Date: 04/05/2022 09:06:00 AM From: Tamica Hale CCS, CCDS Admit Date: 04/02/2022 10:46:00 PM Patient Name: Patsy Pizano Visit Number: [id number] Discharge Date: 04/08/2022 06:11:00 PM ATTENTION: The Clinical Documentation Specialists (CDI) and [facility] Coding Staff appreciate your assistance in clarifying documentation. Please respond to the clarification below the line at the bottom and electronically sign. The CDI & [facility] Coding staff will review the response and follow-up if needed. Please note: Queries are made part of the Legal Health Record. If you have any questions, please contact the author of this message via ITS. Dr. Roque Buckner: Hypoxia needing O2 & BiPAP is documented in the 04/03 Nephrology Consult Based on this information and the findings below, is there an additional diagnosis that is clinically appropriate for this patient? History/Risk Factors per the 04/03 H/P: Uncontrolled Type I IDDM, Stage 5 CKD, Hypertension. Clinical Indicators: Presented to the ED on 04/02 with SOB, had Dialysis yesterday and seen in the ED earlier today with SOB & chest pain. Presented with worsening SOB and nausea. Admit with Systolic CHF, Acute Febrile Illness, CKD and Hyperglycemia. 04/02 VS: T 101.3, P 87, R 18 - 21 - 30; BP 198/91, 215/103; PO 84 RA, 96 RA, 92 4L nc, 100% on 50% BiPAP. 04/02 LAB: Na 128, K 5.5, Chl 89, CO2 15, BUN 55, Creatinine 5.95, Glucose 672, Lactic Acid 2.2, AST 105, ALT 126, Alk Phos 417. BNP: 110,000 Echocardiogram Results: (most recent 02/18/2022): EF 50-55%, Mild concentric left ventricular hypertrophy, Mild TR. 04/02 CXR: Stable cardiomegaly with mild pulmonary vascular congestion and mils interstitial edema. Correlate for acute exacerbation of CHF. Treatment 04/02: O2 4L - BiPAP 50%, CHF Clinical Protocol, Flores Catheter insertion, Consults to Cardiac Rehab and Dietitian for Heart Failure, IV Lasix 40 mg x1 then q8, INH Ventolin 2.5 mg QID/PRN, IV Insulin 10 units x1, IV Ativan 1 mg x1, IV Rocephin 1,000 mg x1, Nitropaste x1. Is there an additional diagnosis that is clinically appropriate for this patient? [ ] Acute Hypoxic Respiratory Failure [ ] Acute Respiratory Insufficiency [ ] Other Diagnosis, please specify [ ] Unable to determine (Template Last Revised: July 2020) MTDD
== END 2022-04-08 18:11 | disposition home or self-care (01) | DRG 304 ==
LOC: EC 18:04 → 3SCARD 22:46
PROVIDERS: ADMIT Family Medicine; ATTEND Family Medicine
PROC: 5A09457 Assistance with Respiratory Ventilation, 24-96 Consecutive Hours, Continuous Positive Airway Pressure (ICD-10-PCS; principal; 2022-04-02)
PROC: 5A1D70Z Performance of Urinary Filtration, Intermittent, Less than 6 Hours Per Day (ICD-10-PCS; 2022-04-02)
DX: I16.0 Hypertensive urgency (principal); J96.91 Respiratory failure, unspecified with hypoxia; N18.6 End stage renal disease; E10.42 Type 1 diabetes mellitus with diabetic polyneuropathy; D63.1 Anemia in chronic kidney disease; E10.319 Type 1 diabetes mellitus with unspecified diabetic retinopathy without macular edema; E10.22 Type 1 diabetes mellitus with diabetic chronic kidney disease; E10.65 Type 1 diabetes mellitus with hyperglycemia; I12.0 Hypertensive chronic kidney disease with stage 5 chronic kidney disease or end stage renal disease; E86.0 Dehydration; H54.8 Legal blindness, as defined in USA; E61.1 Iron deficiency; H53.009 Unspecified amblyopia, unspecified eye; M89.8X9 Other specified disorders of bone, unspecified site; M54.50 Low back pain, unspecified; Z28.310 Unvaccinated for COVID-19; Z79.4 Long term (current) use of insulin; Z99.2 Dependence on renal dialysis; Z79.899 Other long term (current) drug therapy; Z79.82 Long term (current) use of aspirin; Z91.013 Allergy to seafood; Z91.041 Radiographic dye allergy status; Z86.73 Personal history of transient ischemic attack (TIA), and cerebral infarction without residual deficits; Z86.79 Personal history of other diseases of the circulatory system
CPT/HCPCS: 36415; 71046; 80048; 80053; 82728; 83036; 83540; 83550; 83605; 83735; 83880; 84484; 85025; 85610; 85730; 87040; 87635; 90935; 93005; 94660; 94760; 96374; 96375; 99285

== ENCOUNTER → 2022-04-02 | Emergency (ER) | payer MEDICARE, OTHER | LOC: EC 08:09 | DX: K21.9 Gastro-esophageal reflux disease without esophagitis (principal); F41.9 Anxiety disorder, unspecified; Z53.29 Procedure and treatment not carried out because of patient's decision for other reasons | CPT/HCPCS: 99284 ==

== ENCOUNTER 2022-04-09 20:43 | Inpatient (IN) | payer MEDICARE, OTHER ==
[2022-04-09] MEDS ORDERED: SODIUM CHLORIDE 0.9% 1,000 ML IV STA (22:17)
[2022-04-09 22:32] LABS: Anisocytosis Slight; Basophils # (A) 0.1 k/uL (0-0.2); Basophils % (A) 1 %; Eosinophils # (A) 0.3 k/uL (0-0.7); Eosinophils % (A) 5 %; HCT 25.6 % (34.0-46.0); HGB 8.6 gm/dL (11.4-16.0); Hypochromasia Slight; Lymphocytes # (A) 0.9 k/uL (1.0-4.8); Lymphocytes % (A) 12 %; MCH 31.7 pg (25.0-35.0); MCHC 33.6 g/dL (31.0-37.0); MCV 94.3 fL (80.0-100.0); Macrocytosis Slight; Mean Platelet Volume 10.1; Monocytes # (A) 0.5 k/uL (0-1.0); Monocytes % (A) 7 %; Neutrophils # (A) 5.6 k/uL (1.3-7.7); Neutrophils % (A) 73 %; Platelet Count 269 k/uL (150-450); RBC 2.72 m/uL (3.80-5.40); RDW 18.5 % (11.5-15.5); WBC 7.7 k/uL (3.8-10.6)
[2022-04-09] MEDS ORDERED: LORazepam 2 MG/ML INJ IV STA (22:43)
[2022-04-09 22:49] LABS: Albumin 4.9 g/dL (3.5-5.0); Calcium 9.7 mg/dL (8.4-10.2); Total Bilirubin 1.2 mg/dL (0.2-1.3); Total Protein 7.5 g/dL (6.3-8.2)
--- NOTE | 2022-04-09 23:08 | ED ---
General Adult HPI - General Chief complaint: Dizziness Stated complaint: Fall, Dizzy,BID,Weakness Time Seen by Provider: 04/09/22 21:24 Source: patient Mode of arrival: wheelchair Limitations: no limitations - History of Present Illness Initial comments: 31-year-old female with past medical history of diabetes, end-stage renal disease on hemodialysis presents to the emergency department feeling lightheaded and nauseated. Her significant other is at bedside and reports a history. States that she "can't get comfortable. He administered her medications today and for states that she did take her medications. She was discharged from the hospital last night. No reported missed sessions of her dialysis which is on Monday, Monday and Monday. No fevers. Does admit to some shortness of breath. No other alleviating, precipitating or modifying factors - Related Data Home Medications Medication Instructions Recorded Confirmed Ergocalciferol (Vitamin D2) 1,250 mcg PO Q30D 04/03/21 04/10/22 [Drisdol (50,000 Iu)] carvediloL [Coreg] 25 mg PO BID 04/03/21 04/10/22 Escitalopram [Lexapro] 20 mg PO DAILY 04/17/21 04/10/22 Albuterol Inhaler [Ventolin Hfa 2 puff INHALATION RT-QID PRN 12/06/21 04/10/22 Inhaler] Aspirin 81 mg PO DAILY 12/06/21 04/10/22 Methoxy Peg-Epoetin Beta [Mircera] 200 mcg IVPB Q14D 12/06/21 04/10/22 NIFEdipine XL [Procardia XL] 60 mg PO BID 12/06/21 04/10/22 Insulin Aspart [NovoLOG Flexpen] See Protocol SQ TID-W/MEALS 12/21/21 04/10/22 Melatonin [Melatonin Dissolving 10 mg PO HS 12/21/21 04/10/22 Tablet] rOPINIRole HCL [Requip] 2 mg PO HS 12/21/21 04/10/22 Lidocaine-Prilocaine Cream [Emla 1 applic TOPICAL MOWEFR PRN 02/09/22 04/10/22 Cream 2.5%/2.5%] buPROPion SR [Wellbutrin SR] 150 mg PO BID 02/09/22 04/10/22 Insulin Detemir (Levemir) [Levemir] 15 unit SQ HS 04/02/22 04/10/22 cloNIDine HCL [Catapres] 0.2 mg PO TID 04/02/22 04/10/22 Previous Rx's Medication Instructions Recorded Acetaminophen Tab [Tylenol] 650 mg PO Q6HR PRN #30 tab 04/09/21 Glucagon Emergency Kit 1 mg IM ONCE PRN #1 kit 06/15/21 Cyanocobalamin [Vitamin B-12] 1,000 mcg PO DAILY #60 tab 09/06/21 Atorvastatin [Lipitor] 40 mg PO DAILY 30 Days #30 tab 10/13/21 Calcium Acetate [PhosLo] 667 mg PO TID-W/MEALS 30 Days #90 10/13/21 tab Pantoprazole Sodium [Protonix] 20 mg PO BID #30 tab 10/15/21 LORazepam [Ativan] 1 mg PO TID PRN #90 tab 12/09/21 hydrOXYzine HCL [Atarax] 25 mg PO TID PRN #90 tab 12/09/21 Darbepoetin Tate [Aranesp] 40 mcg SQ Q7D each 04/08/22 Allergies Allergy/AdvReac Type Severity Reaction Status Date / Time Fish Containing Products Allergy Rash/Hives Verified 04/09/22 20:48 [Fish] iodine Allergy Anaphylaxis Verified 04/09/22 20:48 Review of Systems ROS Statement: Those systems with pertinent positive or pertinent negative responses have been documented in the HPI. ROS Other: All systems not noted in ROS Statement are negative. Past Medical History Past Medical History: CVA/TIA, Diabetes Mellitus, Dialysis, Eye Disorder, Hypertension, Renal Disease Additional Past Medical History / Comment(s): ESRD with hemodialysis M/W/F, IDDM type 1, DKA, neuropathy bilateral legs/feet, diabetic retinopathy/legally b darian, RLS, gastritis, severe hypokalemia, fluid retention in abdomin/legs. History of Any Multi-Drug Resistant Organisms: None Reported Past Surgical History: Appendectomy, Section, Cholecystectomy Additional Past Surgical History / Comment(s): fistula left arm Past Anesthesia/Blood Transfusion Reactions: No Reported Reaction Past Psychological History: Anxiety, Depression Smoking Status: Never smoker Past Alcohol Use History: None Reported Past Drug Use History: None Reported - Past Family History Mother Family Medical History: Cancer, Hypertension Additional Family Medical History / Comment(s): Thyroid cancer, bipolar Father Family Medical History: Seizure Disorder Additional Family Medical History / Comment(s): Epilepsy General Exam Limitations: no limitations General appearance: alert, in no apparent distress, anxious, cachectic Head exam: Present: atraumatic, normocephalic, normal inspection Eye exam: Present: normal appearance, PERRL, EOMI. Absent: scleral icterus, conjunctival injection, periorbital swelling ENT exam: Present: normal exam, mucous membranes moist Neck exam: Present: normal inspection. Absent: tenderness, meningismus, lymphadenopathy Respiratory exam: Present: normal lung sounds bilaterally. Absent: respiratory distress, wheezes, rales, rhonchi, stridor Cardiovascular Exam: Present: regular rate, normal rhythm, normal heart sounds. Absent: systolic murmur, diastolic murmur, rubs, gallop, clicks GI/Abdominal exam: Present: soft, normal bowel sounds. Absent: distended, tenderness, guarding, rebound, rigid Extremities exam: Present: normal inspection, full ROM, normal capillary refill. Absent: tenderness, pedal edema, joint swelling, calf tenderness Back exam: Present: normal inspection Neurological exam: Present: alert, oriented X3, CN II-XII intact Psychiatric exam: Present: normal affect, normal mood Skin exam: Present: warm, dry, intact, normal color. Absent: rash Course Vital Signs 04/09/22 04/09/22 04/10/22 20:48 21:28 00:50 Temperature 98.1 F Pulse Rate 71 78 Pulse Rate [ 68 Apical] Respiratory 20 16 Rate Blood Pressure 107/59 145/80 O2 Sat by Pulse 100 95 Oximetry 04/10/22 04/10/22 04/10/22 06:12 07:03 08:17 Temperature Pulse Rate 84 81 76 Pulse Rate [ Apical] Respiratory 16 16 18 Rate Blood Pressure 190/98 207/110 189/103 O2 Sat by Pulse 98 98 95 Oximetry 04/10/22 04/10/22 04/10/22 10:31 12:18 12:54 Temperature Pulse Rate 78 79 83 Pulse Rate [ Apical] Respiratory 18 18 18 Rate Blood Pressure 210/119 228/122 196/94 O2 Sat by Pulse 95 95 95 Oximetry 04/10/22 04/10/22 04/10/22 14:22 15:39 17:27 Temperature Pulse Rate 80 76 77 Pulse Rate [ Apical] Respiratory 18 18 18 Rate Blood Pressure 194/98 163/88 176/98 O2 Sat by Pulse 96 96 96 Oximetry 04/10/22 18:19 Temperature Pulse Rate 74 Pulse Rate [ Apical] Respiratory 18 Rate Blood Pressure 181/97 O2 Sat by Pulse 96 Oximetry EKG Findings - EKG Comments: EKG Findings:: EKG demonstrates sinus rhythm with a rate of 67. WA interval 164. QRS 96. QTC of 450. No acute ST segment elevations or depressions Medical Decision Making - Medical Decision Making Upon arrival patient was placed into room 11. Thorough history and physical exam is performed. Accu-Chek is obtained and it is greater than 600. IV is es tablished laboratory studies are conducted. Glucose is 672. She does have an anion gap of 23 and CO2 is low at 15. Because of this the patient requires an insulin drip and admission. Spoke with Dr. Buckner who agreed to admit the patient - Lab Data Result diagrams: 04/11/22 09:45 04/11/22 09:45 Lab Results 04/09/22 04/09/22 04/09/22 Range/Units 21:05 21:05 21:05 WBC 7.7 (3.8-10.6) k/uL RBC 2.72 L (3.80-5.40) m/uL Hgb 8.6 L (11.4-16.0) gm/dL Hct 25.6 L (34.0-46.0) % MCV 94.3 (80.0-100.0) fL MCH 31.7 (25.0-35.0) pg MCHC 33.6 (31.0-37.0) g/dL RDW 18.5 H (11.5-15.5) % Plt Count 269 (150-450) k/uL MPV 10.1 Neutrophils % 73 % Lymphocytes % 12 % Monocytes % 7 % Eosinophils % 5 % Basophils % 1 % Neutrophils # 5.6 (1.3-7.7) k/uL Lymphocytes # 0.9 L (1.0-4.8) k/uL Monocytes # 0.5 (0-1.0) k/uL Eosinophils # 0.3 (0-0.7) k/uL Basophils # 0.1 (0-0.2) k/uL Hypochromasia Slight Anisocytosis Slight Macrocytosis Slight Sodium 126 L (137-145) mmol/L Potassium (3.5-5.1) mmol/L Chloride 88 L (98-107) mmol/L Carbon Dioxide 15 L (22-30) mmol/L Anion Gap 23 mmol/L BUN 75 H (7-17) mg/dL Creatinine 5.33 H (0.52-1.04) mg/dL Est GFR (CKD-EPI)AfAm 11 (>60 ml/min/1.73 sqM) Est GFR (CKD-EPI)NonAf 10 (>60 ml/min/1.73 sqM) Glucose 672 H* (74-99) mg/dL POC Glucose (mg/dL) (70-110) mg/dL POC Glu Awning Hanger Supervisor ID Plasma Lactic Acid Dio (0.7-2.0) mmol/L Calcium 9.7 (8.4-10.2) mg/dL Total Bilirubin 1.2 (0.2-1.3) mg/dL AST 85 H (14-36) U/L ALT 104 H (4-34) U/L Alkaline Phosphatase 505 H (38-126) U/L Troponin I 0.014 (0.000-0.034) ng/mL NT-Pro-B Natriuret Pep pg/mL Total Protein 7.5 (6.3-8.2) g/dL Albumin 4.9 (3.5-5.0) g/dL Acetone, Qual (Negative) 04/09/22 04/09/22 04/09/22 Range/Units 21:05 21:05 22:40 WBC (3.8-10.6) k/uL RBC (3.80-5.40) m/uL Hgb (11.4-16.0) gm/dL Hct (34.0-46.0) % MCV (80.0-100.0) fL MCH (25.0-35.0) pg MCHC (31.0-37.0) g/dL RDW (11.5-15.5) % Plt Count (150-450) k/uL MPV Neutrophils % % Lymphocytes % % Monocytes % % Eosinophils % % Basophils % % Neutrophils # (1.3-7.7) k/uL Lymphocytes # (1.0-4.8) k/uL Monocytes # (0-1.0) k/uL Eosinophils # (0-0.7) k/uL Basophils # (0-0.2) k/uL Hypochromasia Anisocytosis Macrocytosis Sodium (137-145) mmol/L Potassium (3.5-5.1) mmol/L Chloride (98-107) mmol/L Carbon Dioxide (22-30) mmol/L Anion Gap mmol/L BUN (7-17) mg/dL Creatinine (0.52-1.04) mg/dL Est GFR (CKD-EPI)AfAm (>60 ml/min/1.73 sqM) Est GFR (CKD-EPI)NonAf (>60 ml/min/1.73 sqM) Glucose (74-99) mg/dL POC Glucose (mg/dL) (70-110) mg/dL POC Glu Awning Hanger Supervisor ID Plasma Lactic Acid Dio 1.4 (0.7-2.0) mmol/L Calcium (8.4-10.2) mg/dL Total Bilirubin (0.2-1.3) mg/dL AST (14-36) U/L ALT (4-34) U/L Alkaline Phosphatase (38-126) U/L Troponin I (0.000-0.034) ng/mL NT-Pro-B Natriuret Pep 93073 pg/mL Total Protein (6.3-8.2) g/dL Albumin (3.5-5.0) g/dL Acetone, Qual Positive (Negative) 04/09/22 Range/Units 23:10 WBC (3.8-10.6) k/uL RBC (3.80-5.40) m/uL Hgb (11.4-16.0) gm/dL Hct (34.0-46.0) % MCV (80.0-100.0) fL MCH (25.0-35.0) pg MCHC (31.0-37.0) g/dL RDW (11.5-15.5) % Plt Count (150-450) k/uL MPV Neutrophils % % Lymphocytes % % Monocytes % % Eosinophils % % Basophils % % Neutrophils # (1.3-7.7) k/uL Lymphocytes # (1.0-4.8) k/uL Monocytes # (0-1.0) k/uL Eosinophils # (0-0.7) k/uL Basophils # (0-0.2) k/uL Hypochromasia Anisocytosis Macrocytosis Sodium (137-145) mmol/L Potassium (3.5-5.1) mmol/L Chloride (98-107) mmol/L Carbon Dioxide (22-30) mmol/L Anion Gap mmol/L BUN (7-17) mg/dL Creatinine (0.52-1.04) mg/dL Est GFR (CKD-EPI)AfAm (>60 ml/min/1.73 sqM) Est GFR (CKD-EPI)NonAf (>60 ml/min/1.73 sqM) Glucose (74-99) mg/dL POC Glucose (mg/dL) >600 H (70-110) mg/dL POC Glu Awning Hanger Supervisor ID Grabiel Bustos Plasma Lactic Acid Dio (0.7-2.0) mmol/L Calcium (8.4-10.2) mg/dL Total Bilirubin (0.2-1.3) mg/dL AST (14-36) U/L ALT (4-34) U/L Alkaline Phosphatase (38-126) U/L Troponin I (0.000-0.034) ng/mL NT-Pro-B Natriuret Pep pg/mL Total Protein (6.3-8.2) g/dL Albumin (3.5-5.0) g/dL Acetone, Qual (Negative) Disposition Clinical Impression: DKA (diabetic ketoacidosis) Disposition: ADMITTED IP TO THIS [facility] Condition: Stable Is patient prescribed a controlled substance at d/c from ED?: No Time of Disposition: 00:29 Decision to Admit Reason: Admit from EC Decision Date: 04/10/22 Decision Time: 00:29
[2022-04-09 23:13] LABS: Glucose,Whole Blood >600 mg/dL (70-110)
--- NOTE | 2022-04-10 | XR ---
EXAMINATION TYPE: XR chest 2V DATE OF EXAM: 04/09/2022 COMPARISON: 04/02/2022 HISTORY: Cough and pain TECHNIQUE: 2 views FINDINGS: There is no heart failure nor confluent pneumonic infiltrate. Heart is borderline enlarged. There are no hilar masses. IMPRESSION: Mild cardiomegaly. Heart is improved compared to the old exam. There is clearing of the p ulmonary congestion and heart failure compared to recent exam.
[2022-04-10] MEDS ORDERED: Potassium Replacement Protocol 1 EACH MISC MISCELLANE PRN (00:29)
[2022-04-10] MEDS ORDERED: Magnesium Replacement Protocol 1 EACH MISC MISCELLANE PRN (00:29)
[2022-04-10] MEDS ORDERED: NALOXONE 0.4 MG/ML 1 ML VIAL IV PRN (00:30)
[2022-04-10] MEDS ORDERED: INSULIN REGULAR 100 UNIT in SODIUM CHLORIDE 0.9% 100 ML IV SCH (00:30)
[2022-04-10 02:06] LABS: Glucose,Whole Blood >600 mg/dL (70-110)
[2022-04-10 03:05] LABS: Glucose,Whole Blood 429 mg/dL (70-110)
[2022-04-10 04:05] LABS: Glucose,Whole Blood 237 mg/dL (70-110)
[2022-04-10 04:15] LABS: Potassium 4.7 mmol/L (3.5-5.1)
[2022-04-10] MEDS: D5-0.45% NACL WITH KCL 20MEQ/L 1,000 ML IV SCH ×3 (04:32→12:03)
[2022-04-10 05:08] LABS: Glucose,Whole Blood 92 mg/dL (70-110)
[2022-04-10 05:52] LABS: Glucose,Whole Blood 61 mg/dL (70-110)
[2022-04-10 06:39] LABS: Glucose,Whole Blood 71 mg/dL (70-110)
[2022-04-10] MEDS: ACETAMINOPHEN TAB 325 MG TAB PO PRN (06:49)
[2022-04-10] MEDS: carvediloL 12.5 MG TAB PO SCH ×2 (06:50→16:42)
[2022-04-10] MEDS: cloNIDine HCL 0.1 MG TAB PO SCH ×3 (06:50→23:18)
[2022-04-10 08:13] LABS: Glucose,Whole Blood 93 mg/dL (70-110)
[2022-04-10 08:34] LABS: Potassium 5.8 mmol/L (3.5-5.1)
[2022-04-10 10:18] LABS: Glucose,Whole Blood 92 mg/dL (70-110)
[2022-04-10 11:35] LABS: Glucose,Whole Blood 197 mg/dL (70-110)
[2022-04-10] MEDS ORDERED: hydrALAZINE HCL 20 MG/ML 1 ML VIAL IVP STA (11:49)
[2022-04-10] MEDS ORDERED: ALBUTEROL NEBULIZED 2.5 MG/3 ML INHALATION PRN (12:07)
[2022-04-10] MEDS: hydrALAZINE HCL 50 MG TAB PO SCH ×3 (12:51→23:18)
[2022-04-10] MEDS: CALCIUM ACETATE 667 MG TAB PO SCH ×2 (12:51→16:41)
[2022-04-10] MEDS: INSULIN ASPART (NovoLOG) 100 UNIT/ML VIAL SQ SCH ×2 (12:51→16:49)
[2022-04-10] MEDS: diphenhydrAMINE 50 MG/ML 1 ML VIAL IVP PRN ×2 (12:52→21:17)
[2022-04-10 12:59] LABS: Glucose,Whole Blood 291 mg/dL (70-110)
[2022-04-10] MEDS: LORazepam 1 MG TAB PO PRN (14:23)
[2022-04-10 16:45] LABS: Glucose,Whole Blood 529 mg/dL (70-110)
[2022-04-10 18:22] LABS: Glucose,Whole Blood 428 mg/dL (70-110)
[2022-04-10 20:15] LABS: Calcium 9.1 mg/dL (8.4-10.2); Potassium 5.5 mmol/L (3.5-5.1)
[2022-04-10 20:43] LABS: Glucose,Whole Blood 209 mg/dL (70-110)
[2022-04-10] MEDS ORDERED: INSULIN DETEMIR (LEVEMIR) 100 UNIT/ML SYR SQ SCH (21:00)
[2022-04-10] MEDS: MELATONIN 5 MG TABLET PO SCH (21:17)
[2022-04-10] MEDS: buPROPion SR 150 MG TABLET.ER PO SCH (21:17)
[2022-04-11 01:59] LABS: Glucose,Whole Blood 141 mg/dL (70-110)
[2022-04-11 04:41] LABS: Glucose,Whole Blood 48 mg/dL (70-110)
[2022-04-11] MEDS ORDERED: DEXTROSE 50% SYRINGE 50 ML IVP PRN ×2 (04:42)
[2022-04-11] MEDS: diphenhydrAMINE 50 MG/ML 1 ML VIAL IVP PRN ×3 (04:50→21:33)
[2022-04-11 04:59] LABS: Glucose,Whole Blood 58 mg/dL (70-110)
[2022-04-11 05:14] LABS: Glucose,Whole Blood 93 mg/dL (70-110)
[2022-04-11 05:59] LABS: Glucose,Whole Blood 138 mg/dL (70-110)
[2022-04-11] MEDS: PANTOPRAZOLE 40 MG TABLET PO SCH (06:29)
[2022-04-11] MEDS: CALCIUM ACETATE 667 MG TAB PO SCH ×3 (06:29→16:52)
[2022-04-11] MEDS: carvediloL 12.5 MG TAB PO SCH ×2 (06:29→16:51)
[2022-04-11] MEDS: INSULIN ASPART (NovoLOG) 100 UNIT/ML VIAL SQ SCH ×3 (07:29→16:53)
[2022-04-11] MEDS: ATORVASTATIN 40 MG TAB PO SCH (08:01)
[2022-04-11] MEDS: ESCITALOPRAM 20 MG TAB PO SCH (08:02)
[2022-04-11] MEDS: CYANOCOBALAMIN 500 MCG TAB PO SCH (08:02)
[2022-04-11] MEDS: buPROPion SR 150 MG TABLET.ER PO SCH ×2 (08:03→20:21)
[2022-04-11] MEDS: ASPIRIN 81 MG PO SCH (08:03)
[2022-04-11] MEDS: LORazepam 1 MG TAB PO PRN ×2 (09:17→21:33)
[2022-04-11] MEDS: hydrALAZINE HCL 50 MG TAB PO SCH ×3 (09:19→20:21)
[2022-04-11] MEDS: cloNIDine HCL 0.1 MG TAB PO SCH ×3 (09:19→20:21)
[2022-04-11 09:54] LABS: Glucose,Whole Blood 42 mg/dL (70-110)
[2022-04-11 10:10] LABS: Anisocytosis Slight; Basophils % (A) 1 %; Eosinophils # (A) 0.3 k/uL (0-0.7); Eosinophils % (A) 7 %; HCT 22.7 % (34.0-46.0); HGB 7.6 gm/dL (11.4-16.0); Hypochromasia Slight; Lymphocytes # (A) 0.7 k/uL (1.0-4.8); Lymphocytes % (A) 17 %; MCH 31.9 pg (25.0-35.0); MCHC 33.3 g/dL (31.0-37.0); MCV 95.7 fL (80.0-100.0); Macrocytosis Slight; Mean Platelet Volume 10.3; Monocytes # (A) 0.3 k/uL (0-1.0); Monocytes % (A) 7 %; Neutrophils # (A) 2.8 k/uL (1.3-7.7); Neutrophils % (A) 66 %; Platelet Count 202 k/uL (150-450); RBC 2.37 m/uL (3.80-5.40); RDW 18.6 % (11.5-15.5); WBC 4.3 k/uL (3.8-10.6)
[2022-04-11 10:11] LABS: Glucose,Whole Blood 74 mg/dL (70-110)
[2022-04-11 10:16] LABS: Potassium 5.5 mmol/L (3.5-5.1)
--- NOTE | 2022-04-11 11:26 | P.NPCON ---
History of Present Illness - Reason for Consult end stage renal disease - History of Present Illness Patient is a 31-year-old female with end-stage renal disease on hemodialysis on a Monday schedule. Patient is admitted to the hospital as she states that she was not feeling good. Blood sugar was 672 on admission and was noted to be 32 this morning. Patient has underlying brittle diabetes mellitus. Blood pressure is under fair control. Patient denies significant chest pains or shortness of breath History of fever, nausea, vomiting or diarrhea or abdominal pain. Patient is currently seen on hemodialysis. Goal UF about 3-4 L as tolerated. Review of Systems As per HPI Past Medical History Past Medical History: CVA/TIA, Diabetes Mellitus, Dialysis, Eye Disorder, Hypertension, Renal Disease Additional Past Medical History / Comment(s): ESRD with hemodialysis M/W/F, IDDM type 1, DKA, neuropathy bilateral legs/feet, diabetic retinopathy/legally blind, RLS, gastritis, severe hypokalemia, fluid retention in abdomin/legs. History of Any Multi-Drug Resistant Organisms: None Reported Past Surgical History: Appendectomy, Section, Cholecystectomy Additional Past Surgical History / Comment(s): fistula left arm Past Anesthesia/Blood Transfusion Reactions: No Reported Reaction Smoking Status: Never smoker - Past Family History Mother Family Medical History: Cancer, Hypertension Additional Family Medical History / Comment(s): Thyroid cancer, bipolar Father Family Medical History: Seizure Disorder Additional Family Medical History / Comment(s): Epilepsy Medications and Allergies Home Medications Medication Instructions Recorded Confirmed Type Ergocalciferol (Vitamin D2) 1,250 mcg PO Q30D 04/03/21 04/10/22 History [Drisdol (50,000 Iu)] carvediloL [Coreg] 25 mg PO BID 04/03/21 04/10/22 History Acetaminophen Tab [Tylenol] 650 mg PO Q6HR PRN #30 tab 04/09/21 04/10/22 Rx Escitalopram [Lexapro] 20 mg PO DAILY 04/17/21 04/10/22 History Glucagon Emergency Kit 1 mg IM ONCE PRN #1 kit 06/15/21 04/10/22 Rx Cyanocobalamin [Vitamin B-12] 1,000 mcg PO DAILY #60 tab 09/06/21 04/10/22 Rx Atorvastatin [Lipitor] 40 mg PO DAILY 30 Days #30 tab 10/13/21 04/10/22 Rx Calcium Acetate [PhosLo] 667 mg PO TID-W/MEALS 30 Days #90 10/13/21 04/10/22 Rx tab Pantoprazole Sodium [Protonix] 20 mg PO BID #30 tab 10/15/21 04/10/22 Rx Albuterol Inhaler [Ventolin Hfa 2 puff INHALATION RT-QID PRN 12/06/21 04/10/22 History Inhaler] Aspirin 81 mg PO DAILY 12/06/21 04/10/22 History Methoxy Peg-Epoetin Beta [Mircera] 200 mcg IVPB Q14D 12/06/21 04/10/22 History NIFEdipine XL [Procardia XL] 60 mg PO BID 12/06/21 04/10/22 History LORazepam [Ativan] 1 mg PO TID PRN #90 tab 12/09/21 04/10/22 Rx hydrOXYzine HCL [Atarax] 25 mg PO TID PRN #90 tab 12/09/21 04/10/22 Rx Insulin Aspart [NovoLOG Flexpen] See Protocol SQ TID-W/MEALS 12/21/21 04/10/22 History Melatonin [Melatonin Dissolving 10 mg PO HS 12/21/21 04/10/22 History Tablet] rOPINIRole HCL [Requip] 2 mg PO HS 12/21/21 04/10/22 History Lidocaine-Prilocaine Cream [Emla 1 applic TOPICAL MOWEFR PRN 02/09/22 04/10/22 History Cream 2.5%/2.5%] buPROPion SR [Wellbutrin SR] 150 mg PO BID 02/09/22 04/10/22 History Insulin Detemir (Levemir) [Levemir] 15 unit SQ HS 04/02/22 04/10/22 History cloNIDine HCL [Catapres] 0.2 mg PO TID 04/02/22 04/10/22 History Darbepoetin Tate [Aranesp] 40 mcg SQ Q7D each 04/08/22 04/10/22 Rx Allergies Allergy/AdvReac Type Severity Reaction Status Date / Time Fish Containing Products Allergy Rash/Hives Verified 04/09/22 20:48 [Fish] iodine Allergy Anaphylaxis Verified 04/09/22 20:48 Physical Exam Vitals: Vital Signs Temp Pulse Pulse Resp BP BP Pulse Ox 04/11/22 07:35 98.1 F 61 17 135/78 97 04/11/22 04:00 62 16 129/77 98 04/11/22 02:00 16 04/10/22 23:36 68 16 141/77 96 04/10/22 21:00 68 16 110/64 100 04/10/22 18:19 74 18 181/97 96 04/10/22 17:27 77 18 176/98 96 04/10/22 15:39 76 18 163/88 96 04/10/22 14:22 80 18 194/98 96 04/10/22 12:54 83 18 196/94 95 04/10/22 12:18 79 18 228/122 95 Intake and Output 04/10/22 04/11/22 04/11/22 22:59 06:59 14:59 Intake Total 59 Balance 59 Intake: Oral 59 Other: Weight 44.452 kg Awake, comfortable, no acute distress Examination of the heart S1 and S2 Examination of the lungs bilateral breath sounds are heard Abdomen is soft nontender Examination of the lower extremities shows no evidence of edema Patient is legally blind Results - Lab Results Most recent lab results Calcium 9.0 mg/dL (8.4-10.2) 04/11/22 09:45 04/11/22 09:45 04/11/22 09:45 Assessment and Plan Assessment: 1. End-stage renal disease on hemodialysis on a Monday schedule via left arm AV fistula 2. DKA her blood sugar as high as 672 on initial admission and 32 this morning. Patient has underlying brittle diabetes mellitus 3. Volume overload 4. Hypertension with CK D stage 5 5. CK D mineral bone disorder Plan: Hemodialysis today with goal UF of 3-4 L Blood sugar management as per primary service. Avoid IV fluids Continue with phosphate binders. Next Thank you for the consultation. Continue to follow the patient with you during her hospitalization.
[2022-04-11 11:39] LABS: Glucose,Whole Blood 87 mg/dL (70-110)
[2022-04-11 13:24] LABS: Glucose,Whole Blood 75 mg/dL (70-110)
[2022-04-11] MEDS: ACETAMINOPHEN TAB 325 MG TAB PO PRN (15:18)
[2022-04-11 16:26] LABS: Glucose,Whole Blood 227 mg/dL (70-110)
[2022-04-11 20:17] LABS: Glucose,Whole Blood 227 mg/dL (70-110)
[2022-04-11] MEDS: MELATONIN 5 MG TABLET PO SCH (20:21)
--- NOTE | 2022-04-11 22:10 | PN ---
PROGRESS NOTE DATE OF SERVICE: 04/11/2022 CHIEF COMPLAINT: DKA. HISTORY OF PRESENT ILLNESS: This lady is doing fairly well as far as her blood sugars are concerned, but they are actually slightly low. She has no complaints, otherwise. PHYSICAL EXAMINATION: CHEST: Clear. CARDIAC: Normal. ABDOMEN: Soft, nontender. IMPRESSION: 1. Diabetic ketoacidosis. 2. Amblyopia. 3. Uncontrolled type 1 insulin-dependent diabetes mellitus. 4. Stage 5 chronic kidney disease. PLAN: Start to progress her activity and follow blood pressures and blood sugars and try to discharge her home as soon as possible. Her mother, who is a guardian is requesting psychiatric evaluation while she is in. MMODL / IJN: [id number] /
--- NOTE | 2022-04-11 22:10 | HP ---
HISTORY AND PHYSICAL CHIEF COMPLAINT: Uncontrolled diabetes and DKA. HISTORY OF PRESENT ILLNESS: This is another admission for this 31-year-old female. She just left the hospital. She has been going home and coming back into the hospital repeatedly over the last several months. She is noncompliant and does not have good support systems at home. Her mother is an ICU nurse in [place] and came up to obtain guardianship, but had to go back. She came back in this time with a blood sugar of over 600. REVIEW OF SYSTEMS: She has had no change in her neurologic status and she is not vomiting. She has had no chest pain, abdominal pain, etc. Past medical history, family history and personal and social histories are all otherwise unremarkable and noncontributory and unchanged from her discharge several days ago. It is clear that she does not take insulin at home as prescribed. Her blood sugars were actually quite low when she left the hospital. PHYSICAL EXAMINATION: VITAL SIGNS: Blood pressure is 138/98 with a pulse of 86, respirations 14 and she is afebrile. GENERAL: She appeared to be chronically ill, and pale. She is dehydrated. HEAD, EARS, EYES, NOSE, MOUTH AND THROAT: Normal except for dry mucous membranes and her amblyopia. CHEST: Clear. CARDIAC: Normal sinus rhythm. ABDOMEN: Flat and soft. EXTREMITIES: Normal. NEUROLOGIC: She is intact. She is admitted to the hospital with diagnosis of: 1. Diabetic ketoacidosis. 2. Uncontrolled type 1 insulin-dependent diabetes mellitus. 3. Noncompliant patient. 4. Uncontrolled hypertension. 5. Stage 5 chronic kidney disease. 6. Depression. PLAN: 1. Bedrest. 2. IV fluids. 3. Insulin drip. 4. Once she is stabilized, she will be discharged home. However, this lady can be managed to keep her out of the hospital is not clear. MMODL / IJN: [id number] /
[2022-04-11 23:48] LABS: Glucose,Whole Blood 578 mg/dL (70-110)
[2022-04-11] MEDS ORDERED: INSULIN ASPART (NovoLOG) 100 UNIT/ML VIAL SQ ONE (23:57)
[2022-04-12] MEDS: ACETAMINOPHEN TAB 325 MG TAB PO PRN ×2 (01:54→20:17)
[2022-04-12] MEDS: diphenhydrAMINE 50 MG/ML 1 ML VIAL IVP PRN ×3 (03:59→20:19)
[2022-04-12 04:00] LABS: Glucose,Whole Blood 331 mg/dL (70-110)
[2022-04-12 06:14] LABS: Glucose,Whole Blood 501 mg/dL (70-110)
[2022-04-12] MEDS: INSULIN ASPART (NovoLOG) 100 UNIT/ML VIAL SQ SCH ×6 (06:15→20:18)
[2022-04-12] MEDS: PANTOPRAZOLE 40 MG TABLET PO SCH (06:15)
[2022-04-12] MEDS: CALCIUM ACETATE 667 MG TAB PO SCH ×3 (06:15→17:17)
[2022-04-12] MEDS: carvediloL 12.5 MG TAB PO SCH ×2 (06:15→17:17)
[2022-04-12] MEDS ORDERED: INSULIN DETEMIR (LEVEMIR) 100 UNIT/ML SYR SQ SCH ×2 (07:00→21:00)
[2022-04-12] MEDS ORDERED: ONDANSETRON 4 MG/2 ML VIAL IVP STA (09:02)
[2022-04-12] MEDS: ATORVASTATIN 40 MG TAB PO SCH (09:09)
[2022-04-12] MEDS: ASPIRIN 81 MG PO SCH (09:09)
[2022-04-12] MEDS: ESCITALOPRAM 20 MG TAB PO SCH (09:09)
[2022-04-12] MEDS: CYANOCOBALAMIN 500 MCG TAB PO SCH (09:09)
[2022-04-12] MEDS: hydrALAZINE HCL 50 MG TAB PO SCH ×3 (09:09→20:18)
[2022-04-12] MEDS: cloNIDine HCL 0.1 MG TAB PO SCH ×3 (09:09→20:17)
[2022-04-12] MEDS: buPROPion SR 150 MG TABLET.ER PO SCH ×2 (09:10→20:18)
--- NOTE | 2022-04-12 11:09 | P.PN ---
Subjective Patient is seen for follow-up for end-stage renal disease. Her blood pressure was elevated yesterday but it is down to 131 systolic today. Patient has been laying flat with no significant shortness of breath. We had about 3.7 L of ultrafiltration for hemodialysis yesterday. Patient is scheduled for hemodialysis again tomorrow Blood sugars running around 220-500. Objective - Vital Signs Vital signs: Vital Signs Temp 98 F 04/11/22 20:00 Pulse 80 04/12/22 04:00 Resp 16 04/12/22 04:00 BP 131/67 04/12/22 04:00 Pulse Ox 96 04/12/22 04:00 FiO2 Intake & Output 04/11/22 04/12/22 04/12/22 18:59 06:59 18:59 Intake Total 599 Output Total 3700 Balance -3101 Weight 44.452 kg Intake: Oral 299 Hemodialysis 300 Output: Hemodialysis 3700 - Exam Awake, comfortable, no acute distress Examination of the heart S1 and S2 Examination of the lungs decreased breath at the bases Abdomen is soft nontender Examination lower extremities shows no significant edema OIL 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 patient is legally blind - Labs CBC & Chem 7: 04/11/22 09:45 04/11/22 09:45 Labs: Abnormal Lab Results - Last 24 Hours (Table) 04/11/22 04/11/22 04/11/22 Range/Units 16:24 20:16 23:47 POC Glucose (mg/dL) 227 H 227 H 578 H (70-110) mg/dL 04/12/22 04/12/22 Range/Units 03:58 06:12 POC Glucose (mg/dL) 331 H 501 H (70-110) mg/dL Assessment and Plan Assessment: 1. End-stage renal disease on hemodialysis on a Monday schedule via left arm AV fistula 2. DKA her blood sugar as high as 672 on initial admission and 32 this morning. Patient has underlying brittle diabetes mellitus 3. Volume overload 4. Hypertension with CK D stage 5 5. CK D mineral bone disorder Plan: Hemodialysis in a.m. with UF of about 4 L Continue current antihypertensive regimen Continue phosphate binders Avoid IV fluids
[2022-04-12 11:21] LABS: Glucose,Whole Blood 352 mg/dL (70-110)
[2022-04-12 11:39] LABS: Glucose,Whole Blood 404 mg/dL (70-110)
[2022-04-12] MEDS ORDERED: DEXTROSE 50% SYRINGE 50 ML IVP PRN ×2 (11:43)
--- NOTE | 2022-04-12 13:55 | P.CN ---
Psychiatric Consult - . Consult date: 04/12/22 Consult:: 04/12/22 13:42 IDENTIFYING DATA: This patient is a 31-year-old female currently lives with her father in a house, has 3 kids. She is currently . REASON FOR REFERRAL: Psychiatry was consulted for depression HISTORY OF PRESENT ILLNESS: The patient presented to the hospital as a readmission. Patient has a medical history of diabetes mellitus, end-stage renal disease currently on hemodialysis 3 times a week. Patient was admitted to the ER for lightheadedness and nausea. Patient was just discharged from the hospital last night. Patient apparently had a blood glucose level of 672. Patient was placed on insulin drip and admitted. Her sodium was 126. Patient has increase in her AST and ALT levels. Nursing care patient states that patient has been fairly polite and respectful however has been going through a lot of stressors and is depressed. Patient was seen lying in the bed today. She was agreeable speech/language therapist today. She states that she has had "a lot of hospitalizations" this past year. She states that her medical condition and issues have been increasing. She states that she has brittle diabetes and her blood sugars were elevated and also has high blood pressure due to her kidney disease. States that other issues that she has had with her ex- the father of her children he got caught for "soliciting a minor" and claims that she had to work hard to help bail him. She states that her recent left her and they're now in 2019. She claims that she has been sad being in the hospital over states that for the most part she is doing fairly well at home. She claims that she has high levels of anxiety. She claims that she would like to be switched back to Cymbalta instead of Lexapro as it helped her previously better. She states that her sleep has been on and off in appetite and fair. At this time patient denies any suicidal or homical ideations, intent or plan. Patient denies any auditory, visual hallucinations and denies any paranoia or delusions. Patients admits to using no recreational drugs or cigarettes PAST PSYCHIATRIC HISTORY: Patient has a a history of depression and anxiety. Patient is currently on lexapro, melatonin, wellbutrin. Patient states that she was previously psychiatrically hospitalized at [facility] at the age of 17. Patient denies any psychiatric outpatient follow-up. Patient denies any history of suicide attempts in the past. Past Medical History: CVA/TIA, Diabetes Mellitus, Dialysis, Eye Disorder, Hypertension, Renal Disease Additional Past Medical History / Comment(s): ESRD with hemodialysis M/W/F, IDDM type 1, DKA, neuropathy bilateral legs/feet, diabetic retinopathy/legally blind, RLS, gastritis, severe hypokalemia, fluid retention in abdomin/legs. ALLERGIES: as per EMR. CHEMICAL DEPENDENCY HISTORY: as per HPI. FAMILY PSYCHIATRIC/SUBSTANCE USE HISTORY: Claims that her uncle has schizophrenia, her cousin had depression and committed suicide SOCIAL HISTORY: Patient was born and raised in [place] [facility]. SHe claims that she completed HS and did 2 years of college. she states that she does not have any legal history. She has 3 kids, currently lives with her father and children and is seperated. MENTAL STATUS EXAM: General Appearance: Patient appears to be thin, short hair, unclear and bloody fingernails, stated age is alert, pleasant, and tends to be cooperative. Patient appears to have marginal hygiene and grooming wearing hospital gown with fair eye contact. Behavior: Patient is calmly lying in bed without any agitated behavior. Attempts to cooperate Speech: Patient's speech is fluent and nonpressured. Mood/Affect: Patient reports their mood is "sad", affect is congruent Suicidality/Homicidality: Patient denies having any suicidal or homicidal ideation intent or plan. Perceptions: Patient denies any visual hallucinations and denies any auditory hallucinations Though content/process: There is no evidence of any delusional thought content and thought process is linear and goal-directed. Memory and concentration: AOX3, grossly intact for the purposes of this session. Can spell "WORLD" backwards Judgment and insight: poor IMPRESSIONS: Major depressive disorder, mild generalized anxiety disorder PLAN: -At this time patient DOES NOT meet criteria for inpatient psychiatric admission. -Would recommend the following medication changes/additions: Patient requested to be taken off of Lexapro and switched with Cymbalta. Discontinue Lexapro today and start Cymbalta 30 mg twice a day for mood/anxiety. Added Remeron 7.5 mg daily at bedtime for insomnia/mood, continue with Wellbutrin and melatonin as prescribed. -viscose department worker to provide patient with outpatient mental health/psychiatry resources for appropriate follow up upon discharge -Communicated plan to patient's nurse -Will continue to follow along tomorrow and likely sign off then. -Please contact with any questions.
[2022-04-12] MEDS: LORazepam 1 MG TAB PO PRN ×2 (14:30→22:49)
[2022-04-12 16:18] LABS: Glucose,Whole Blood 112 mg/dL (70-110)
[2022-04-12] MEDS: ONDANSETRON 4 MG/2 ML VIAL IVP PRN (17:18)
[2022-04-12 20:02] LABS: Glucose,Whole Blood 459 mg/dL (70-110)
[2022-04-12] MEDS: MELATONIN 5 MG TABLET PO SCH (20:17)
[2022-04-12] MEDS: DULoxetine HCL 30 MG CAPSULE.DR PO SCH (20:17)
[2022-04-12] MEDS: INSULIN DETEMIR (LEVEMIR) 100 UNIT/ML SYR SQ SCH (20:19)
[2022-04-12] MEDS ORDERED: MIRTAZAPINE 15 MG TAB PO SCH (21:00)
[2022-04-12 22:56] LABS: Glucose,Whole Blood 341 mg/dL (70-110)
[2022-04-13] MEDS: ONDANSETRON 4 MG/2 ML VIAL IVP PRN ×3 (00:23→23:41)
[2022-04-13 03:57] LABS: Glucose,Whole Blood 34 mg/dL (70-110)
[2022-04-13] MEDS: diphenhydrAMINE 50 MG/ML 1 ML VIAL IVP PRN ×3 (04:07→20:47)
[2022-04-13] MEDS: ACETAMINOPHEN TAB 325 MG TAB PO PRN ×2 (04:08→12:15)
[2022-04-13 04:14] LABS: Glucose,Whole Blood 79 mg/dL (70-110)
[2022-04-13] MEDS: PANTOPRAZOLE 40 MG TABLET PO SCH (06:14)
[2022-04-13] MEDS: CALCIUM ACETATE 667 MG TAB PO SCH ×3 (06:14→17:42)
[2022-04-13] MEDS: carvediloL 12.5 MG TAB PO SCH ×2 (06:14→17:42)
[2022-04-13 06:17] LABS: Glucose,Whole Blood 196 mg/dL (70-110)
[2022-04-13] MEDS: INSULIN ASPART (NovoLOG) 100 UNIT/ML VIAL SQ SCH ×7 (07:16→20:37)
[2022-04-13 09:31] LABS: Glucose,Whole Blood 225 mg/dL (70-110)
[2022-04-13] MEDS: LORazepam 1 MG TAB PO PRN (10:56)
[2022-04-13 11:38] LABS: Glucose,Whole Blood 203 mg/dL (70-110)
--- NOTE | 2022-04-13 14:04 | P.PN ---
Progress Note - Text Progress Note Date: 04/13/22 Interval History: Patient was seen today for psychiatric follow up regarding her depression and anxiety. Patients was seen laying in bed and agreeable to speak with rfp writer. Patient's nurse states the patient has been doing better however did not sleep last night. Patient's blood sugars remain unstable since yesterday. Patient was having dialysis today. She claims that she is doing "a little bit better" with regards to her mood and also anxiety. We spoke more about her medications and these changes that we are making which she is agreeable to. She states that she wants to try to follow-up at [facility] with her daughter for psychiatric help which was encouraged. She states that she was feeling somewhat restless last night and did not sleep throughout the night. She claims that her appetite is better and improving. She appears to be more future oriented at this time. She is denying any suicidal or homicidal ideations intent or plan. She is denying any auditory or visual hallucinations at this time. Mental Status Exam: General Appearance: Patient appears to be thin, short hair, unclear and bloody fingernails, stated age is alert, pleasant, and is cooperative. Patient appears to have marginal hygiene and grooming wearing hospital gown with fair eye contact. Behavior: Patient is calmly lying in bed without any agitated behavior. Attempts to cooperate Speech: Patient's speech is fluent and nonpressured. Mood/Affect: Patient reports their mood is "a bit better", affect is congruent and constricted Suicidality/Homicidality: Patient denies having any suicidal or homicidal ideation intent or plan. Perceptions: Patient denies any visual hallucinations and denies any auditory hallucinations Though content/process: There is no evidence of any delusional thought content and thought process is linear and goal-directed. Burt Memory and concentration: AOX3, grossly intact for the purposes of this session Judgment and insight: improving mildly IMPRESSIONS: Major depressive disorder, mild generalized anxiety disorder PLAN: -At this time patient DOES NOT meet criteria for inpatient psychiatric admission -Would recommend the following medication changes/additions: Cymbalta 30 mg twice a day for mood/anxiety. increase Remeron 15 mg daily at bedtime for inso mnia/mood, continue with Wellbutrin and melatonin as prescribed. added trazodone 50 mg qhs prn for insomnia. -nursing support worker to provide patient with outpatient mental health/psychiatry resources for appropriate follow up upon discharge -Communicated plan to patient's nurse and horticultural farm manager about plan. -rfp writer called patients mother patt at [phone], we spoke about her treatment plan briefly and also her medical conditions and rfp writer answered any questions or concerns that she had. -SW to give referral for [facility] to provide continued outpatient follow up and therapy. -At this time psychiatry will sign off. -Please contact with any questions.
[2022-04-13 16:45] LABS: Glucose,Whole Blood 224 mg/dL (70-110)
--- NOTE | 2022-04-13 16:45 | P.PN ---
Subjective Patient is seen for follow-up for end-stage renal disease. Patient is scheduled for hemodialysis today. Goal UF about 4 L No significant complaints today. Patient has asked for Benadryl to be given with hemodialysis. Objective - Vital Signs Vital signs: Vital Signs Temp 98.8 F 04/13/22 16:00 Pulse 86 04/13/22 16:00 Resp 18 04/13/22 16:00 BP 198/86 04/13/22 16:00 Pulse Ox 95 04/13/22 16:00 FiO2 Intake & Output 04/12/22 04/13/22 04/13/22 18:59 06:59 18:59 Intake Total 540 Balance 540 Weight 48.6 kg 48.6 kg Intake: Oral 540 - Exam Awake, comfortable, no acute distress Examination of the heart S1 and S2 Examination of the lungs decreased breath at the bases Abdomen is soft nontender Examination lower extremities shows no significant edema SUPERVISOR TYPE BAR AND SEGMENT exam grossly intact patient is legally blind - Labs CBC & Chem 7: 04/11/22 09:45 04/11/22 09:45 Labs: Abnormal Lab Results - Last 24 Hours (Table) 04/12/22 04/12/22 04/13/22 Range/Units 19:59 22:52 03:50 POC Glucose (mg/dL) 459 H 341 H 34 L (70-110) mg/dL 04/13/22 04/13/22 04/13/22 Range/Units 06:13 09:27 11:36 POC Glucose (mg/dL) 196 H 225 H 203 H (70-110) mg/dL Assessment and Plan Assessment: 1. End-stage renal disease on hemodialysis on a Monday schedule via left arm AV fistula 2. DKA her blood sugar as high as 672 on initial admission. Patient has underlying brittle diabetes mellitus 3. Volume overload 4. Hypertension with CK D stage 5 5. CK D mineral bone disorder Plan: Hemodialysis on Monday Continue current antihypertensive regimen Continue phosphate binders Avoid IV fluids
[2022-04-13] MEDS: ATORVASTATIN 40 MG TAB PO SCH (17:42)
[2022-04-13] MEDS: DULoxetine HCL 30 MG CAPSULE.DR PO SCH ×2 (17:42→20:47)
[2022-04-13] MEDS: hydrALAZINE HCL 50 MG TAB PO SCH ×3 (17:43→20:37)
[2022-04-13] MEDS: cloNIDine HCL 0.1 MG TAB PO SCH ×3 (17:43→20:38)
[2022-04-13] MEDS: CYANOCOBALAMIN 500 MCG TAB PO SCH (17:44)
[2022-04-13] MEDS: ASPIRIN 81 MG PO SCH (17:44)
[2022-04-13] MEDS ORDERED: KETOROLAC 15 MG/ML 1 ML VIAL IVP SCH (18:00)
[2022-04-13] MEDS: buPROPion SR 150 MG TABLET.ER PO SCH ×2 (18:06→20:39)
[2022-04-13] MEDS ORDERED: HYDROmorphone 0.5 MG/0.5 ML SYRINGE IVP STA (18:08)
[2022-04-13 19:50] LABS: Glucose,Whole Blood 384 mg/dL (70-110)
[2022-04-13] MEDS: INSULIN DETEMIR (LEVEMIR) 100 UNIT/ML SYR SQ SCH (20:37)
[2022-04-13] MEDS: MIRTAZAPINE 15 MG TAB PO SCH (20:38)
[2022-04-13] MEDS: MELATONIN 5 MG TABLET PO SCH (20:38)
[2022-04-14 01:35] LABS: Glucose,Whole Blood 113 mg/dL (70-110)
[2022-04-14] MEDS: LORazepam 1 MG TAB PO PRN ×3 (03:20→20:11)
[2022-04-14 06:15] LABS: Glucose,Whole Blood 90 mg/dL (70-110)
[2022-04-14] MEDS: INSULIN ASPART (NovoLOG) 100 UNIT/ML VIAL SQ SCH ×8 (06:44→20:12)
[2022-04-14] MEDS: carvediloL 12.5 MG TAB PO SCH ×2 (06:47→17:59)
[2022-04-14] MEDS: CALCIUM ACETATE 667 MG TAB PO SCH ×3 (06:47→17:59)
[2022-04-14] MEDS: PANTOPRAZOLE 40 MG TABLET PO SCH (06:47)
[2022-04-14] MEDS: diphenhydrAMINE 50 MG/ML 1 ML VIAL IVP PRN ×2 (06:48→13:07)
--- NOTE | 2022-04-14 10:22 | P.PN ---
Subjective Patient is seen for follow-up for end-stage renal disease. Patient states that she feels she has a lot of fluid on. She is requesting an extra treatment today. No significant shortness of breath noted Blood pressure however is elevated with systolic in the 200 range. Objective - Vital Signs Vital signs: Vital Signs Temp 98.6 F 04/14/22 02:00 Pulse 75 04/14/22 02:00 Resp 18 04/14/22 02:00 BP 161/85 04/14/22 02:00 Pulse Ox 96 04/14/22 02:00 FiO2 Intake & Output 04/13/22 04/14/22 04/14/22 18:59 06:59 18:59 Intake Total 940 Output Total 3600 Balance -2660 Weight 48.6 kg Intake: Oral 540 Hemodialysis 400 Output: Hemodialysis 3600 Other: Voiding Method Toilet # Voids 0 - Exam Awake, comfortable, no acute distress Examination of the heart S1 and S2 Examination of the lungs decreased breath at the bases Abdomen is soft nontender Examination lower extremities shows no significant edema MOBILE MANAGER exam grossly intact patient is legally blind - Labs CBC & Chem 7: 04/11/22 09:45 04/11/22 09:45 Labs: Abnormal Lab Results - Last 24 Hours (Table) 04/13/22 04/13/22 04/13/22 Range/Units 11:36 16:44 19:48 POC Glucose (mg/dL) 203 H 224 H 384 H (70-110) mg/dL 04/14/22 Range/Units 01:33 POC Glucose (mg/dL) 113 H (70-110) mg/dL Assessment and Plan Assessment: 1. End-stage renal disease on hemodialysis on a Monday schedule via left arm AV fistula 2. DKA her blood sugar as high as 672 on initial admission. Patient has underlying brittle diabetes mellitus 3. Volume overload 4. Hypertension with CK D stage 5 5. CK D mineral bone disorder Plan: Hemodialysis today at mostly for UF and then repeat again tomorrow Continue current antihypertensive regimen Continue phosphate binders Avoid IV fluids
[2022-04-14 11:46] LABS: Glucose,Whole Blood >600 mg/dL (70-110)
[2022-04-14] MEDS: cloNIDine HCL 0.1 MG TAB PO SCH ×4 (11:48→20:09)
[2022-04-14 12:17] LABS: Glucose,Whole Blood >600 mg/dL (70-110)
[2022-04-14 14:58] LABS: Glucose,Whole Blood 577 mg/dL (70-110)
[2022-04-14 16:39] LABS: Glucose,Whole Blood 567 mg/dL (70-110)
[2022-04-14] MEDS: buPROPion SR 150 MG TABLET.ER PO SCH ×2 (17:56→18:01)
[2022-04-14] MEDS: DULoxetine HCL 30 MG CAPSULE.DR PO SCH ×2 (17:56→17:59)
[2022-04-14] MEDS: hydrALAZINE HCL 50 MG TAB PO SCH ×3 (17:56→20:10)
[2022-04-14] MEDS: CYANOCOBALAMIN 500 MCG TAB PO SCH (18:00)
[2022-04-14] MEDS: ATORVASTATIN 40 MG TAB PO SCH (18:00)
[2022-04-14] MEDS: ASPIRIN 81 MG PO SCH (18:01)
[2022-04-14 19:00] LABS: Glucose,Whole Blood >600 mg/dL (70-110)
[2022-04-14 19:56] LABS: Glucose,Whole Blood 404 mg/dL (70-110)
[2022-04-14] MEDS: MELATONIN 5 MG TABLET PO SCH (20:11)
[2022-04-14] MEDS: MIRTAZAPINE 15 MG TAB PO SCH (20:11)
[2022-04-14 21:38] LABS: Glucose,Whole Blood 197 mg/dL (70-110)
[2022-04-14] MEDS: INSULIN DETEMIR (LEVEMIR) 100 UNIT/ML SYR SQ SCH (21:56)
[2022-04-14] MEDS: KETOROLAC 15 MG/ML 1 ML VIAL IVP PRN (22:39)
[2022-04-14] MEDS: ONDANSETRON 4 MG/2 ML VIAL IVP PRN (23:39)
[2022-04-15] MEDS: diphenhydrAMINE 50 MG/ML 1 ML VIAL IVP PRN ×4 (01:11→21:06)
[2022-04-15] MEDS: traZODone HCL 50 MG TAB PO PRN (01:11)
[2022-04-15 01:18] LABS: Glucose,Whole Blood 56 mg/dL (70-110)
[2022-04-15 01:34] LABS: Glucose,Whole Blood 53 mg/dL (70-110)
[2022-04-15 01:54] LABS: Glucose,Whole Blood 89 mg/dL (70-110)
--- NOTE | 2022-04-15 02:22 | PN ---
PROGRESS NOTE DATE OF SERVICE: 04/12/2022 CHIEF COMPLAINT: Uncontrolled diabetes and hypertension. HISTORY OF PRESENT ILLNESS: This lady is complaining of some nausea, and diabetes is still wildly out of control. She is to be dialyzed today. PHYSICAL EXAMINATION: CHEST: Clear. CARDIAC: Normal. ABDOMEN: Soft. EXTREMITIES: Normal. IMPRESSION: 1. Uncontrolled diabetes. 2. Stage 5 chronic kidney disease. 3. Nausea. 4. Uncontrolled hypertension. PLAN: Zofran will be ordered and her insulin management will be readjusted. MMODL / IJN: [id number] /
--- NOTE | 2022-04-15 02:29 | PN ---
PROGRESS NOTE DATE OF SERVICE: 04/13/2022 CHIEF COMPLAINT: Uncontrolled diabetes and hypertension. HISTORY OF PRESENT ILLNESS: This lady's blood pressure is doing fairly well, but her blood sugars are still widely fluctuant. REVIEW OF SYMPTOMS: She is complaining of back pain. Is requesting a single dose of Dilaudid which will be ordered. She is also complaining of some generalized pruritus. This could be related to her renal failure. PHYSICAL EXAMINATION: SKIN: Dry. CHEST: Clear. CARDIAC: Normal. ABDOMEN: Soft, nontender. IMPRESSION: 1. Diabetic ketoacidosis. 2. Uncontrolled type 1 insulin-dependent diabetes mellitus. 3. Uncontrolled hypertension. 4. Stage 5 chronic kidney disease. 5. Depression. PLAN: She will be evaluated by Psychiatry. Blood sugars were doing better several days ago and her insulin program may have to be monitored again. MMODL / IJN: [id number] /
--- NOTE | 2022-04-15 03:43 | PN ---
PROGRESS NOTE DATE OF SERVICE: 04/14/2022 CHIEF COMPLAINT: Uncontrolled diabetes and renal failure. HISTORY OF PRESENT ILLNESS: This lady continues to have swings in her blood sugars. Blood pressures are fairly well controlled. Part of the problem is that when her blood sugar is low, the nurses are withholding her insulin and then later in the day, she rises to 600 mg% or higher. REVIEW OF SYMPTOMS: She is complaining of some generalized itching and is requesting narcotic analgesia for back pain. PHYSICAL EXAMINATION: CHEST: Clear. CARDIAC: Demonstrates sinus rhythm. ABDOMEN: Soft, nontender. IMPRESSION: 1. Diabetic ketoacidosis. 2. Uncontrolled type 1 diabetes mellitus. 3. Stage 5 chronic kidney disease. 4. Depression. PLAN: 1. She has been seen by a psychiatrist for her depression as her mother's last guardian has requested. 2. Discharge planning, there is no facility other than somewhere in [place] that will take her. Once she is stable, she will have to go back home. MMODL / IJN: [id number] /
[2022-04-15 05:42] LABS: Glucose,Whole Blood 56 mg/dL (70-110)
[2022-04-15 06:15] LABS: Glucose,Whole Blood 112 mg/dL (70-110)
[2022-04-15] MEDS: INSULIN ASPART (NovoLOG) 100 UNIT/ML VIAL SQ SCH ×7 (07:05→21:06)
[2022-04-15] MEDS: CALCIUM ACETATE 667 MG TAB PO SCH ×3 (07:10→17:04)
[2022-04-15] MEDS: carvediloL 12.5 MG TAB PO SCH ×2 (07:10→17:04)
[2022-04-15] MEDS: LORazepam 1 MG TAB PO PRN ×4 (07:10→21:06)
[2022-04-15] MEDS: PANTOPRAZOLE 40 MG TABLET PO SCH (07:10)
[2022-04-15] MEDS: CYANOCOBALAMIN 500 MCG TAB PO SCH (09:04)
[2022-04-15] MEDS: KETOROLAC 15 MG/ML 1 ML VIAL IVP PRN ×2 (09:05→15:12)
[2022-04-15] MEDS: DULoxetine HCL 30 MG CAPSULE.DR PO SCH ×2 (09:05→21:06)
[2022-04-15] MEDS: hydrALAZINE HCL 50 MG TAB PO SCH ×3 (09:05→21:06)
[2022-04-15] MEDS: buPROPion SR 150 MG TABLET.ER PO SCH ×2 (09:05→21:06)
[2022-04-15] MEDS: cloNIDine HCL 0.1 MG TAB PO SCH ×3 (09:05→21:05)
[2022-04-15] MEDS: ATORVASTATIN 40 MG TAB PO SCH (09:05)
[2022-04-15] MEDS: ASPIRIN 81 MG PO SCH (09:05)
[2022-04-15] MEDS: ONDANSETRON 4 MG/2 ML VIAL IVP PRN (09:47)
--- NOTE | 2022-04-15 11:11 | P.PN ---
Subjective Patient is seen for follow-up for end-stage renal disease. Patient is seen on hemodialysis. Treatment is just getting started. Patient states she had a panic attack last night. Blood pressure is not significantly elevated. Status post extra treatment of hemodialysis yesterday with UF of 2.5 L. Objective - Vital Signs Vital signs: Vital Signs Temp 97.6 F 04/15/22 08:30 Pulse 77 04/15/22 08:30 Resp 16 04/15/22 08:30 BP 144/76 04/15/22 08:30 Pulse Ox 98 04/15/22 08:30 FiO2 Intake & Output 04/14/22 04/15/22 04/15/22 18:59 06:59 18:59 Intake Total 240 300 240 Output Total 2500 Balance 240 -2200 240 Weight 46.1 kg 46.1 kg Intake: Oral 240 300 240 Output: Hemodialysis 2500 Other: Voiding Method Toilet Toilet Toilet # Voids 1 - Exam Awake, comfortable, no acute distress Examination of the heart S1 and S2 Examination of the lungs decreased breath at the bases Abdomen is soft nontender Examination lower extremities shows no significant edema SENIOR COURTROOM CLERK exam grossly intact patient is legally blind - Labs CBC & Chem 7: 04/11/22 09:45 04/14/22 19:12 Labs: Abnormal Lab Results - Last 24 Hours (Table) 04/14/22 04/14/22 04/14/22 Range/Units 11:43 12:05 12:15 Glucose 673 H* (74-99) mg/dL POC Glucose (mg/dL) >600 H >600 H (70-110) mg/dL 04/14/22 04/14/22 04/14/22 Range/Units 14:48 16:37 18:57 Glucose (74-99) mg/dL POC Glucose (mg/dL) 577 H 567 H >600 H (70-110) mg/dL 04/14/22 04/14/22 04/14/22 Range/Units 19:12 19:54 21:37 Glucose 612 H* (74-99) mg/dL POC Glucose (mg/dL) 404 H 197 H (70-110) mg/dL 04/15/22 04/15/22 04/15/22 Range/Units 01:16 01:33 05:40 Glucose (74-99) mg/dL POC Glucose (mg/dL) 56 L 53 L 56 L (70-110) mg/dL 04/15/22 Range/Units 06:14 Glucose (74-99) mg/dL POC Glucose (mg/dL) 112 H (70-110) mg/dL Assessment and Plan Assessment: 1. End-stage renal disease on hemodialysis on a Monday [facility] via left arm AV fistula 2. DKA her blood sugar as high as 672 on initial admission. Patient has underlying brittle diabetes mellitus 3. Volume overload 4. Hypertension with CK D stage 5 5. CK D mineral bone disorder Plan: Hemodialysis today with goal UF 3-4 L as tolerated
[2022-04-15] MEDS: HYDROmorphone 2 MG TAB PO PRN ×2 (11:21→21:05)
[2022-04-15 11:38] LABS: Glucose,Whole Blood 309 mg/dL (70-110)
[2022-04-15 13:39] LABS: Glucose,Whole Blood 325 mg/dL (70-110)
[2022-04-15 16:37] LABS: Glucose,Whole Blood 160 mg/dL (70-110)
[2022-04-15 20:02] LABS: Glucose,Whole Blood 104 mg/dL (70-110)
[2022-04-15] MEDS: MELATONIN 5 MG TABLET PO SCH (21:05)
[2022-04-15] MEDS: MIRTAZAPINE 15 MG TAB PO SCH (21:05)
[2022-04-15] MEDS: INSULIN DETEMIR (LEVEMIR) 100 UNIT/ML SYR SQ SCH (21:06)
[2022-04-16] MEDS: KETOROLAC 15 MG/ML 1 ML VIAL IVP PRN ×2 (01:09→08:18)
[2022-04-16] MEDS: traZODone HCL 50 MG TAB PO PRN (01:09)
[2022-04-16 01:24] LABS: Glucose,Whole Blood 399 mg/dL (70-110)
[2022-04-16] MEDS: diphenhydrAMINE 50 MG/ML 1 ML VIAL IVP PRN ×3 (04:08→17:15)
[2022-04-16] MEDS: HYDROmorphone 2 MG TAB PO PRN ×2 (04:09→13:40)
[2022-04-16 06:02] LABS: Glucose,Whole Blood 338 mg/dL (70-110)
[2022-04-16] MEDS: INSULIN ASPART (NovoLOG) 100 UNIT/ML VIAL SQ SCH ×7 (06:34→20:28)
[2022-04-16] MEDS: PANTOPRAZOLE 40 MG TABLET PO SCH (08:19)
[2022-04-16] MEDS: CYANOCOBALAMIN 500 MCG TAB PO SCH (08:19)
[2022-04-16] MEDS: carvediloL 12.5 MG TAB PO SCH ×2 (08:19→17:17)
[2022-04-16] MEDS: ATORVASTATIN 40 MG TAB PO SCH (08:19)
[2022-04-16] MEDS: ASPIRIN 81 MG PO SCH (08:19)
[2022-04-16] MEDS: cloNIDine HCL 0.1 MG TAB PO SCH ×3 (08:19→20:28)
[2022-04-16] MEDS: hydrALAZINE HCL 50 MG TAB PO SCH (08:19)
[2022-04-16] MEDS: buPROPion SR 150 MG TABLET.ER PO SCH ×2 (08:19→20:28)
[2022-04-16] MEDS: CALCIUM ACETATE 667 MG TAB PO SCH ×3 (08:19→17:17)
--- NOTE | 2022-04-16 10:45 | P.PN ---
Subjective Patient is seen in follow-up for end-stage renal disease. Resting in bed. No active complaints. Requesting dialysis as she feels that she is caring fluid. Vital signs are stable. General: No acute distress. HEENT: Head exam is unremarkable. LUNGS: Breath sounds decreased. HEART: Rate and Rhythm are regular. ABDOMEN: Soft, no distention. EXTREMITITES: No edema. Objective - Vital Signs Vital signs: Vital Signs Temp 97.9 F 04/16/22 07:25 Pulse 78 04/16/22 07:25 Resp 19 04/16/22 07:25 BP 153/78 04/16/22 07:25 Pulse Ox 96 04/16/22 07:25 FiO2 Intake & Output 04/15/22 04/16/22 04/16/22 18:59 06:59 18:59 Intake Total 720 300 Output Total 3657 Balance 720 -3357 Weight 46.1 kg Intake: Oral 720 Hemodialysis 300 Output: Urine 0 Hemodialysis 3657 Other: Voiding Method Toilet Toilet Toilet # Bowel Movements 0 - Labs CBC & Chem 7: 04/11/22 09:45 04/14/22 19:12 Labs: Abnormal Lab Results - Last 24 Hours (Table) 04/15/22 04/15/22 04/15/22 Range/Units 11:37 13:28 16:35 POC Glucose (mg/dL) 309 H 325 H 160 H (70-110) mg/dL 04/16/22 04/16/22 Range/Units 01:23 05:59 POC Glucose (mg/dL) 399 H 338 H (70-110) mg/dL Assessment and Plan Plan: Assessment: 1. End-stage renal disease maintained on hemodialysis on Monday schedule. 2. Volume overload. 3. Brittle diabetes. 4. Hypertension with chronic kidney disease. Blood pressures labile. Fairly stable this morning. 5. 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 Plan: Short hemodialysis treatment today most for ultrafiltration. Avoid NSAIDs - d/c toradol. Stop hydralazine due to history of pericardial effusion. Avoid acei/arb and Aldactone due to frequent hyperkalemia. Will add imdur if bp staying high.
[2022-04-16 11:33] LABS: Glucose,Whole Blood 310 mg/dL (70-110)
--- NOTE | 2022-04-16 11:33 | P.CNNES ---
History of Present Illness Consult date: 04/16/22 Requesting physician: Roque Buckner Reason for Consult: hallucination History of Present Illness: This is a 31-year-old woman with history of reported history of seizure disorder/seizure-like activity, hydrocephalus, significant visual loss due to diabetic neuropathy/cataract, visual hallucination end-stage renal disease on dialysis, diabetes mellitus, hypertension presented emergency department because of feeling lightheadedness as nauseated. Neurology is consulted for visual hallucination. During his hospital visit she presented with DKA, elevated AST and ALT. according to the patient she has chronic visual hallucination that is intermittent going on for years but she stated this time around the its lasting for the past 3 days. She said when she is looking at things she sees different objects such as she seeing cartoon object. She said that she is legally blind and all she sees is light dark perception. She denies of any focal weakness, numbness, difficulty swallowing. Denies of any headache. Of note the patient was seen by Dr. Frances in our facility on 02/20/2022 and was felt the patient had cardiopulmonary arrest lasting 5 minutes. He felt the patient had seizure-like activity noted by C staff in the ED was negative so the Keppra was taken off. He did mention the patient has mild hydrocephalus noted on the CT which is chronic since May 2021 at least in the CT is stable and he recommended the neurologist follow up as an outpatient. Please refer to his note for further details. Of note patient had vitamin B12 of 338 and July 2021 methylmalonic is 1.14 which is slightly elevated red blood cell folate is 955. Review of Systems Review of system: The 12 point system was reviewed and apparent positive and negative per HPI. Past Medical History Past Medical History: CVA/TIA, Diabetes Mellitus, Dialysis, Eye Disorder, Hypertension, Renal Disease Additional Past Medical History / Comment(s): ESRD with hemodialysis M/W/F, IDDM type 1, DKA, neuropathy bilateral legs/feet, diabetic retinopathy/legally blind, RLS, gastritis, severe hypokalemia, fluid retention in abdomin/legs. History of Any Multi-Drug Resistant Organisms: None Reported Past Surgical History: Appendectomy, Section, Cholecystectomy Additional Past Surgical History / Comment(s): fistula left arm Past Anesthesia/Blood Transfusion Reactions: No Reported Reaction Past Psychological History: Anxiety, Depression Smoking Status: Never smoker Past Alcohol Use History: None Reported Past Drug Use History: None Reported - Past Family History Mother Family Medical History: Cancer, Hypertension Additional Family Medical History / Comment(s): Thyroid cancer, bipolar Father Family Medical History: Seizure Disorder Additional Family Medical History / Comment(s): Epilepsy Medications and Allergies Home Medications Medication Instructions Recorded Confirmed Type Ergocalciferol (Vitamin D2) 1,250 mcg PO Q30D 04/03/21 04/10/22 History [Drisdol (50,000 Iu)] carvediloL [Coreg] 25 mg PO BID 04/03/21 04/10/22 History Acetaminophen Tab [Tylenol] 650 mg PO Q6HR PRN #30 tab 04/09/21 04/10/22 Rx Escitalopram [Lexapro] 20 mg PO DAILY 04/17/21 04/10/22 History Glucagon Emergency Kit 1 mg IM ONCE PRN #1 kit 06/15/21 04/10/22 Rx Cyanocobalamin [Vitamin B-12] 1,000 mcg PO DAILY #60 tab 09/06/21 04/10/22 Rx Atorvastatin [Lipitor] 40 mg PO DAILY 30 Days #30 tab 10/13/21 04/10/22 Rx Calcium Acetate [PhosLo] 667 mg PO TID-W/MEALS 30 Days #90 10/13/21 04/10/22 Rx tab Pantoprazole Sodium [Protonix] 20 mg PO BID #30 tab 10/15/21 04/10/22 Rx Albuterol Inhaler [Ventolin Hfa 2 puff INHALATION RT-QID PRN 12/06/21 04/10/22 History Inhaler] Aspirin 81 mg PO DAILY 12/06/21 04/10/22 History Methoxy Peg-Epoetin Beta [Mircera] 200 mcg IVPB Q14D 12/06/21 04/10/22 History NIFEdipine XL [Procardia XL] 60 mg PO BID 12/06/21 04/10/22 History LORazepam [Ativan] 1 mg PO TID PRN #90 tab 12/09/21 04/10/22 Rx hydrOXYzine HCL [Atarax] 25 mg PO TID PRN #90 tab 12/09/21 04/10/22 Rx Insulin Aspart [NovoLOG Flexpen] See Protocol SQ TID-W/MEALS 12/21/21 04/10/22 History Melatonin [Melatonin Dissolving 10 mg PO HS 12/21/21 04/10/22 History Tablet] rOPINIRole HCL [Requip] 2 mg PO HS 12/21/21 04/10/22 History Lidocaine-Prilocaine Cream [Emla 1 applic TOPICAL MOWEFR PRN 02/09/22 04/10/22 History Cream 2.5%/2.5%] buPROPion SR [Wellbutrin SR] 150 mg PO BID 02/09/22 04/10/22 History Insulin Detemir (Levemir) [Levemir] 15 unit SQ HS 04/02/22 04/10/22 History cloNIDine HCL [Catapres] 0.2 mg PO TID 04/02/22 04/10/22 History Darbepoetin Tate [Aranesp] 40 mcg SQ Q7D each 04/08/22 04/10/22 Rx Allergies Allergy/AdvReac Type Severity Reaction Status Date / Time Fish Containing Products Allergy Rash/Hives Verified 04/09/22 20:48 [Fish] iodine Allergy Anaphylaxis Verified 04/09/22 20:48 Physical Examination - Vital Signs Vital Signs: Vital Signs Temp Pulse Resp BP Pulse Ox 04/16/22 07:25 97.9 F 78 19 153/78 96 04/16/22 07:10 78 19 04/16/22 05:30 78 16 04/16/22 04:07 97.7 F 78 16 174/94 97 04/16/22 02:00 98.1 F 82 15 165/96 98 04/15/22 20:00 97.6 F 76 15 164/105 98 04/15/22 19:50 97.8 F 80 17 164/105 100 04/15/22 19:24 96.9 F L 77 16 126/63 04/15/22 16:31 98 F 84 17 147/83 99 04/15/22 14:38 97.5 F L 83 16 138/84 98 Intake and Output 04/15/22 04/16/22 04/16/22 22:59 06:59 14:59 Intake Total 540 Output Total 3657 0 Balance -3117 0 Intake: Oral 240 Hemodialysis 300 Output: Urine 0 Hemodialysis 3657 Other: Voiding Method Toilet Toilet Toilet # Bowel Movements 0 GENERAL: The patient is lying in bed and is not in acute distress. CHEST: The heart rate is regular rate rhythm. No murmurs to auscultation. LUNG: Clear to auscultation bilaterally no wheezing noted throughout. Not labored breathing. ABDOMEN/GI: Bowel sounds present in all 4 quadrants. No tenderness to palpation throughout. NEUROLOGICAL: Higher mental function: The patient is awake, alert, oriented to self, place and time. Patient is following commands. No aphasia and no neglect. Cranial nerves: The pupils are round, right is 5-6mm and left is 4mm and reacti ve to light but more on left than right. Visual herr is legally blind but see's shadow/light-dark perception (that is old). Extraocular movement is intact no nystagmus is noted. Facial sensation is normal to touch throughout. The facial strength is normal throughout. Hearing is normal bilaterally to hand rub. Tongue is midline and moved [id number] without any difficulty. No dysarthria is noted. Shoulder shrug is normal bilaterally. Motor: The strength is 5 over 5 throughout. Normal tone and bulk. Cerebellum: Normal finger to nose bilaterally. Sensation: Sensation is normal to touch throughout. Reflexes (right/left): 1+ throughout. Plantars are downgoing bilaterally. Results - Laboratory Findings CBC and BMP: 04/11/22 09:45 04/14/22 19:12 Abnormal Lab Findings: Abnormal Labs 04/09/22 04/09/22 04/09/22 21:05 21:05 23:10 RBC 2.72 L Hgb 8.6 L Hct 25.6 L RDW 18.5 H Lymphocytes # 0.9 L Sodium 126 L Potassium Chloride 88 L Carbon Dioxide 15 L BUN 75 H Creatinine 5.33 H Glucose 672 H* POC Glucose (mg/dL) >600 H AST 85 H ALT 104 H Alkaline Phosphatase 505 H 04/10/22 04/10/22 04/10/22 02:04 03:03 03:38 RBC Hgb Hct RDW Lymphocytes # Sodium 135 L Potassium Chloride 95 L Carbon Dioxide BUN Creatinine Glucose 295 H POC Glucose (mg/dL) >600 H 429 H AST ALT Alkaline Phosphatase 04/10/22 04/10/22 04/10/22 04:03 05:51 07:50 RBC Hgb Hct RDW Lymphocytes # Sodium 135 L Potassium 5.8 H Chloride Carbon Dioxide BUN Creatinine Glucose POC Glucose (mg/dL) 237 H 61 L AST ALT Alkaline Phosphatase 04/10/22 04/10/22 04/10/22 11:33 12:57 16:42 RBC Hgb Hct RDW Lymphocytes # Sodium Potassium Chloride Carbon Dioxide BUN Creatinine Glucose POC Glucose (mg/dL) 197 H 291 H 529 H AST ALT Alkaline Phosphatase 04/10/22 04/10/22 04/10/22 18:19 19:08 20:42 RBC Hgb Hct RDW Lymphocytes # Sodium 130 L Potassium 5.5 H Chloride 97 L Carbon Dioxide 16 L BUN 98 H Creatinine 7.31 H* Glucose 287 H POC Glucose (mg/dL) 428 H 209 H AST ALT Alkaline Phosphatase 04/11/22 04/11/22 04/11/22 01:54 04:40 04:57 RBC Hgb Hct RDW Lymphocytes # Sodium Potassium Chloride Carbon Dioxide BUN Creatinine Glucose POC Glucose (mg/dL) 141 H 48 L 58 L AST ALT Alkaline Phosphatase 04/11/22 04/11/22 04/11/22 05:58 09:45 09:45 RBC 2.37 L Hgb 7.6 L Hct 22.7 L RDW 18.6 H Lymphocytes # 0.7 L Sodium 131 L Potassium 5.5 H Chloride 97 L Carbon Dioxide 17 L BUN 98 H Creatinine 8.20 H* Glucose 32 L* POC Glucose (mg/dL) 138 H AST ALT Alkaline Phosphatase 04/11/22 04/11/22 04/11/22 09:52 16:24 20:16 RBC Hgb Hct RDW Lymphocytes # Sodium Potassium Chloride Carbon Dioxide BUN Creatinine Glucose POC Glucose (mg/dL) 42 L 227 H 227 H AST ALT Alkaline Phosphatase 04/11/22 04/12/22 04/12/22 23:47 03:58 06:12 RBC Hgb Hct RDW Lymphocytes # Sodium Potassium Chloride Carbon Dioxide BUN Creatinine Glucose POC Glucose (mg/dL) 578 H 331 H 501 H AST ALT Alkaline Phosphatase 04/12/22 04/12/22 04/12/22 11:00 11:38 16:16 RBC Hgb Hct RDW Lymphocytes # Sodium Potassium Chloride Carbon Dioxide BUN Creatinine Glucose POC Glucose (mg/dL) 352 H 404 H 112 H AST ALT Alkaline Phosphatase 04/12/22 04/12/22 04/13/22 19:59 22:52 03:50 RBC Hgb Hct RDW Lymphocytes # Sodium Potassium Chloride Carbon Dioxide BUN Creatinine Glucose POC Glucose (mg/dL) 459 H 341 H 34 L AST ALT Alkaline Phosphatase 04/13/22 04/13/22 04/13/22 06:13 09:27 11:36 RBC Hgb Hct RDW Lymphocytes # Sodium Potassium Chloride Carbon Dioxide BUN Creatinine Glucose POC Glucose (mg/dL) 196 H 225 H 203 H AST ALT Alkaline Phosphatase 04/13/22 04/13/22 04/14/22 16:44 19:48 01:33 RBC Hgb Hct RDW Lymphocytes # Sodium Potassium Chloride Carbon Dioxide BUN Creatinine Glucose POC Glucose (mg/dL) 224 H 384 H 113 H AST ALT Alkaline Phosphatase 04/14/22 04/14/22 04/14/22 11:43 12:05 12:15 RBC Hgb Hct RDW Lymphocytes # Sodium Potassium Chloride Carbon Dioxide BUN Creatinine Glucose 673 H* POC Glucose (mg/dL) >600 H >600 H AST ALT Alkaline Phosphatase 04/14/22 04/14/22 04/14/22 14:48 16:37 18:57 RBC Hgb Hct RDW Lymphocytes # Sodium Potassium Chloride Carbon Dioxide BUN Creatinine Glucose POC Glucose (mg/dL) 577 H 567 H >600 H AST ALT Alkaline Phosphatase 04/14/22 04/14/22 04/14/22 19:12 19:54 21:37 RBC Hgb Hct RDW Lymphocytes # Sodium Potassium Chloride Carbon Dioxide BUN Creatinine Glucose 612 H* POC Glucose (mg/dL) 404 H 197 H AST ALT Alkaline Phosphatase 04/15/22 04/15/22 04/15/22 01:16 01:33 05:40 RBC Hgb Hct RDW Lymphocytes # Sodium Potassium Chloride Carbon Dioxide BUN Creatinine Glucose POC Glucose (mg/dL) 56 L 53 L 56 L AST ALT Alkaline Phosphatase 04/15/22 04/15/22 04/15/22 06:14 11:37 13:28 RBC Hgb Hct RDW Lymphocytes # Sodium Potassium Chloride Carbon Dioxide BUN Creatinine Glucose POC Glucose (mg/dL) 112 H 309 H 325 H AST ALT Alkaline Phosphatase 04/15/22 04/16/22 04/16/22 16:35 01:23 05:59 RBC Hgb Hct RDW Lymphocytes # Sodium Potassium Chloride Carbon Dioxide BUN Creatinine Glucose POC Glucose (mg/dL) 160 H 399 H 338 H AST ALT Alkaline Phosphatase Assessment and Plan Assessment: Acute on chronic Visual Hallucination (has it for years but this time is more prolonged): Unsure exact cause. Unsure if due metabolic derangement that exacerbated this. In past stated she had EEG and was told negative for seizure. DKA Hydrocephalus and per previous note on 01/2022 is stable History of reported seizure-like but last EEG was negative for seizure Diabetes type 1 and the patient is noncompliant with medication Hypertension Plan: I ordered a repeat CT of the brain. I highly recommend the patient to follow-up a neurologist and neurosurgeon as an outpatient for the hydrocephalus. Recommend long-term EEG or epilepsy monitoring unit to rule out any underlying seizures not noted on the routine EEG in the last EEG in our facility was on the 01/2022 Psychiatry is on board Nephrology is on board We'll defer the rest of the medical management to primary team Upon discharge recommend the patient follow up with a neurologist as an outpatient within 1-2 weeks Thank you for the consultation Time with Patient: Greater than 30
[2022-04-16] MEDS: LORazepam 1 MG TAB PO PRN (13:39)
[2022-04-16] MEDS: DULoxetine HCL 30 MG CAPSULE.DR PO SCH ×2 (14:52→21:06)
[2022-04-16 15:56] LABS: Glucose,Whole Blood 160 mg/dL (70-110)
--- NOTE | 2022-04-16 19:04 | CT ---
EXAMINATION TYPE: CT brain wo con DATE OF EXAM: 04/16/2022 COMPARISON: 02/16/2022 HISTORY: hallucinations CT DLP: 1070.4 mGycm Automated exposure control for dose reduction was used. Images of the brain obtained without contrast. There is enlargement of the ventricles. There is no mass effect or midline shift. No sign of intracra nial hemorrhage. Calvarium is intact. IMPRESSION: There is hydrocephalus without change compared to old exam. No acute intracranial abnormality.
[2022-04-16 19:54] LABS: Glucose,Whole Blood 256 mg/dL (70-110)
[2022-04-16] MEDS: MELATONIN 5 MG TABLET PO SCH (20:28)
[2022-04-16] MEDS: MIRTAZAPINE 15 MG TAB PO SCH (20:28)
[2022-04-16] MEDS: INSULIN DETEMIR (LEVEMIR) 100 UNIT/ML SYR SQ SCH (20:28)
--- NOTE | 2022-04-16 20:45 | P.PN ---
Progress Note - Text Progress Note Date: 04/16/22 Interval History: Patient was seen today for psychiatric follow up regarding her visual hallucin ations. Patients was seen laying in bed and agreeable to speak with music writer. Patient was having dialysis today. She states that she had visual hallucinations in the past but they resolved within a few hours. However, she states that for the past 3 days, she has been seeing patterns/boomerangs on the [place] and feeling like the TV has cartoons on it. She states that she is somewhat bothered by it. She reports doing well on her anxiety and depression medications and denies side effects or concerns. She said that she is legally blind and all she sees is light dark perception. She is denying any auditory hallucinations or paranoia at this time. Patient is not noted to be agitated. Mental Status Exam: General Appearance: Patient appears to be thin, short hair, unclear and bloody fingernails, stated age is alert, pleasant, and is cooperative. Patient appears to have marginal hygiene and grooming wearing hospital gown with fair eye contact. Behavior: Patient is calmly lying in bed without any agitated behavior. Attempts to cooperate Speech: Patient's speech is fluent and nonpressured. Mood/Affect: Patient reports their mood is "good", affect is congruent and constricted Suicidality/Homicidality: Patient denies having any suicidal or homicidal ideation intent or plan. Perceptions: Patient denies any auditory hallucinations but endorsing VH Though content/process: There is no evidence of any delusional thought content and thought process is linear and goal-directed. 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 Continue Remeron 15 mg daily at bedtime for insomnia/mood, Continue with Wellbutrin and melatonin as prescribed. Continue trazodone 50 mg qhs prn for insomnia. - No antipsychotics indicated for Antonio Bonnet syndrome but rather due to vision changes -computer recycling worker to provide patient with outpatient mental health/psychiatry resources for appropriate follow up upon discharge -Communicated plan to patient's nurse and business continuity manager about plan. -SW to give referral for [facility] to provide continued outpatient follow up and therapy. Outpatient Neuro/Ophtho f/u as needed -At this time psychiatry will sign off. -Please contact with any questions.
[2022-04-16] MEDS: rOPINIRole HCL 4 MG TABLET PO SCH (20:48)
[2022-04-17] MEDS: HYDROmorphone 2 MG TAB PO PRN ×3 (00:16→17:00)
[2022-04-17] MEDS: diphenhydrAMINE 50 MG/ML 1 ML VIAL IVP PRN ×4 (00:17→21:25)
[2022-04-17 05:54] LABS: Glucose,Whole Blood 223 mg/dL (70-110)
[2022-04-17] MEDS: CALCIUM ACETATE 667 MG TAB PO SCH ×3 (07:13→16:59)
[2022-04-17] MEDS: INSULIN ASPART (NovoLOG) 100 UNIT/ML VIAL SQ SCH ×7 (07:13→21:44)
[2022-04-17] MEDS: carvediloL 12.5 MG TAB PO SCH ×2 (07:13→17:00)
[2022-04-17] MEDS: PANTOPRAZOLE 40 MG TABLET PO SCH (07:13)
[2022-04-17] MEDS: CYANOCOBALAMIN 500 MCG TAB PO SCH (08:16)
[2022-04-17] MEDS: ASPIRIN 81 MG PO SCH (08:16)
[2022-04-17] MEDS: cloNIDine HCL 0.1 MG TAB PO SCH ×3 (08:16→21:23)
[2022-04-17] MEDS: ATORVASTATIN 40 MG TAB PO SCH (08:17)
[2022-04-17] MEDS: buPROPion SR 150 MG TABLET.ER PO SCH ×2 (08:17→21:24)
[2022-04-17] MEDS: DULoxetine HCL 30 MG CAPSULE.DR PO SCH ×2 (08:17→21:38)
--- NOTE | 2022-04-17 09:30 | P.PN ---
Subjective Patient is seen in follow-up for end-stage renal disease. Resting in bed. No active complaints. Blood pressure controlled. Tolerated 2 L ultrafiltration yesterday. Makes little urine. Vital signs are stable. General: No acute distress. HEENT: Head exam is unremarkable. LUNGS: Breath sounds decreased. HEART: Rate and Rhythm are regular. ABDOMEN: Soft, no distention. EXTREMITITES: No edema. Objective - Vital Signs Vital signs: Vital Signs Temp 98.3 F 04/17/22 07:48 Pulse 78 04/17/22 07:48 Resp 17 04/17/22 07:48 BP 140/75 04/17/22 07:48 Pulse Ox 98 04/17/22 07:48 FiO2 Intake & Output 04/16/22 04/17/22 04/17/22 18:59 06:59 18:59 Output Total 1999 Balance -1999 Output: Hemodialysis 1999 Other: Voiding Method Toilet Toilet # Voids 2 5 # Bowel Movements 3 - Labs CBC & Chem 7: 04/11/22 09:45 04/14/22 19:12 Labs: Abnormal Lab Results - Last 24 Hours (Table) 04/16/22 04/16/22 04/16/22 Range/Units 11:32 15:55 19:53 POC Glucose (mg/dL) 310 H 160 H 256 H (70-110) mg/dL 04/17/22 Range/Units 05:52 POC Glucose (mg/dL) 223 H (70-110) mg/dL Assessment and Plan Plan: Assessment: 1. End-stage renal disease maintained on hemodialysis on Monday schedule. 2. Volume overload. Improved with ultrafiltration. 3. Brittle diabetes. 4. Hypertension with chronic kidney disease. Blood pressures labile. Controlled this morning. 5. 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 Plan: Hemodialysis tomorrow. Avoid NSAIDs - stopped toradol. Stopped hydralazine due to history of pericardial effusion. Avoid acei/arb and Aldactone due to frequent hyperkalemia. Will add imdur if bp staying high. Add torsemide as makes urine.
[2022-04-17 11:40] LABS: Glucose,Whole Blood 282 mg/dL (70-110)
[2022-04-17] MEDS: TORSEMIDE 20 MG TAB PO SCH (12:11)
[2022-04-17] MEDS: rOPINIRole HCL 4 MG TABLET PO SCH ×2 (12:12→21:24)
[2022-04-17] MEDS: LORazepam 1 MG TAB PO PRN (12:53)
--- NOTE | 2022-04-17 14:03 | P.PN ---
Subjective Progress Note Date: 04/17/22 The patient seen at bedside and she states her visual hallucination has improved compared to yesterday or the day before but continues to have them. Denies any new focal deficit. Objective - Vital Signs Vital signs: Vital Signs Temp 98.3 F 04/17/22 07:48 Pulse 78 04/17/22 07:48 Resp 17 04/17/22 07:48 BP 140/75 04/17/22 07:48 Pulse Ox 98 04/17/22 07:48 FiO2 Intake & Output 04/16/22 04/17/22 04/17/22 18:59 06:59 18:59 Output Total 2000 0 Balance -1999 0 Output: Urine 0 Hemodialysis 2000 Other: Voiding Method Toilet Toilet Toilet # Voids 2 5 # Bowel Movements 3 - Exam GENERAL: The patient is lying in bed and is not in acute distress. NEUROLOGICAL: Higher mental function: The patient is awake, alert, oriented to self, place and time. Patient is following commands. No aphasia and no neglect. Cranial nerves: The pupils are round, right is 5-6mm and left is 4mm and reactive to light but more on left than right. Visual herr is legally blind but see's shadow/light-dark perception (that is old). Extraocular movement is intact no nystagmus is noted. Facial sensation is normal to touch throughout. The facial strength is normal throughout. Hearing is normal bilaterally to hand rub. Tongue is midline and moved [id number] without any difficulty. No dysarthria is noted. Shoulder shrug is normal bilaterally. Motor: The strength is 5 over 5 throughout. Normal tone and bulk. Cerebellum: Normal finger to nose bilaterally. Sensation: Sensation is normal to touch throughout. Reflexes (right/left): 1+ throughout. Plantars are downgoing bilaterally. Some other workup during this hospital visit consisted of: Patient sugar continues to be in the 200-[address] of the head is reported as there is hydrocephalus without change compared to old exam. No acute intracranial abnormality. - Labs CBC & Chem 7: 04/11/22 09:45 04/14/22 19:12 Labs: Abnormal Lab Results - Last 24 Hours (Table) 04/16/22 04/16/22 04/17/22 Range/Units 15:55 19:53 05:52 POC Glucose (mg/dL) 160 H 256 H 223 H (70-110) mg/dL 04/17/22 Range/Units 11:39 POC Glucose (mg/dL) 282 H (70-110) mg/dL Assessment and Plan Assessment: Acute on chronic Visual Hallucination (has it for years but this time is more prolonged): Unsure exact cause. Unsure if due metabolic derangement that exacerbated this. In past stated she had EEG and was told negative for seizure. ---stated improving. 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 Unsure if old and due to old eye problems (diabetic retinopathy/cataract). Diabetes type 1 and the patient is noncompliant with medication Hypertension Plan: Because of her anisocoria and visual hallucination I ordered MRI of the brain as well as MRA of the head to rule out any other underlying cerebral dysfunction that acute or subacute. MRAs to rule out any aneurysm which I feel unlikely. Ordered routine EEG. Recommend long-term EEG or epilepsy monitoring unit to rule out any underlying seizures not noted on the routine EEG in the last EEG in our facility was on the 01/2022 I highly recommend the patient to follow-up a neurologist and neurosurgeon as an outpatient for the hydrocephalus. Psychiatry is on board Nephrology is on board We'll defer the rest of the medical management to primary team Upon discharge recommend the patient follow up with a neurologist as an outpatient within 1-2 weeks The plan discussed with the patient and her nurse. If MRI and MRA of the head are normal as well EEG is normal then patient is clear from neurological perspective. Time with Patient: Less than 30
[2022-04-17 16:19] LABS: Glucose,Whole Blood 199 mg/dL (70-110)
[2022-04-17 20:56] LABS: Glucose,Whole Blood 244 mg/dL (70-110)
[2022-04-17] MEDS: MELATONIN 5 MG TABLET PO SCH (21:22)
[2022-04-17] MEDS: MIRTAZAPINE 15 MG TAB PO SCH (21:22)
[2022-04-17] MEDS: INSULIN DETEMIR (LEVEMIR) 100 UNIT/ML SYR SQ SCH (21:43)
[2022-04-18] MEDS: HYDROmorphone 2 MG TAB PO PRN (00:24)
[2022-04-18 01:55] LABS: Glucose,Whole Blood 424 mg/dL (70-110)
[2022-04-18] MEDS: diphenhydrAMINE 50 MG/ML 1 ML VIAL IVP PRN ×4 (04:11→22:17)
[2022-04-18] MEDS: LORazepam 1 MG TAB PO PRN ×2 (05:19→11:49)
[2022-04-18 06:30] LABS: Glucose,Whole Blood 419 mg/dL (70-110)
[2022-04-18] MEDS: PANTOPRAZOLE 40 MG TABLET PO SCH (06:36)
[2022-04-18] MEDS: CALCIUM ACETATE 667 MG TAB PO SCH ×3 (06:36→16:50)
[2022-04-18] MEDS: INSULIN ASPART (NovoLOG) 100 UNIT/ML VIAL SQ SCH ×7 (06:36→22:34)
[2022-04-18] MEDS: buPROPion SR 150 MG TABLET.ER PO SCH ×2 (08:01→22:16)
[2022-04-18] MEDS: ATORVASTATIN 40 MG TAB PO SCH (08:01)
[2022-04-18] MEDS: ASPIRIN 81 MG PO SCH (08:01)
[2022-04-18] MEDS: carvediloL 12.5 MG TAB PO SCH ×2 (08:02→16:50)
[2022-04-18] MEDS: cloNIDine HCL 0.1 MG TAB PO SCH ×3 (08:02→22:16)
[2022-04-18] MEDS: CYANOCOBALAMIN 500 MCG TAB PO SCH (08:02)
[2022-04-18] MEDS: DULoxetine HCL 30 MG CAPSULE.DR PO SCH ×2 (08:02→22:17)
[2022-04-18] MEDS: TORSEMIDE 20 MG TAB PO SCH (08:02)
[2022-04-18] MEDS: rOPINIRole HCL 4 MG TABLET PO SCH ×2 (08:02→22:17)
--- NOTE | 2022-04-18 09:38 | P.PN ---
Subjective Patient is seen in follow-up for end-stage renal disease. Resting in bed. No active complaints. Blood pressure controlled this morning. Scheduled for dialysis today. Vital signs are stable. General: No acute distress. HEENT: Head exam is unremarkable. LUNGS: Breath sounds decreased. HEART: Rate and Rhythm are regular. ABDOMEN: Soft, no distention. EXTREMITITES: No edema. Objective - Vital Signs Vital signs: Vital Signs Temp 98.0 F 04/18/22 08:00 Pulse 94 04/18/22 08:00 Resp 16 04/18/22 08:00 BP 133/90 04/18/22 08:00 Pulse Ox 95 04/18/22 08:00 FiO2 Intake & Output 04/17/22 04/18/22 04/18/22 18:59 06:59 18:59 Intake Total 400 Output Total 0 1 Balance 400 -1 Weight 51.6 kg Intake: Oral 400 Output: Urine 0 Urine/Stool Mix 1 Other: Voiding Method Toilet Toilet Toilet # Voids 3 - Labs CBC & Chem 7: 04/11/22 09:45 04/14/22 19:12 Labs: Abnormal Lab Results - Last 24 Hours (Table) 04/17/22 04/17/22 04/17/22 Range/Units 11:39 16:18 20:54 POC Glucose (mg/dL) 282 H 199 H 244 H (70-110) mg/dL 04/18/22 04/18/22 Range/Units 01:54 06:29 POC Glucose (mg/dL) 424 H 419 H (70-110) mg/dL Assessment and Plan Plan: Assessment: 1. End-stage renal disease maintained on hemodialysis on Monday schedule. 2. Volume overload. Improved with ultrafiltration. 3. Brittle diabetes. 4. Hypertension with chronic kidney disease. Blood pressures labile. Controlled this morning. 5. 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 Plan: Hemodialysis today. Avoid NSAIDs - stopped toradol. Stopped hydralazine due to history of pericardial effusion. Avoid acei/arb and Aldactone due to frequent hyperkalemia. Will add imdur if bp staying high.
[2022-04-18 11:43] LABS: Glucose,Whole Blood 148 mg/dL (70-110)
--- NOTE | 2022-04-18 12:30 | P.PN ---
Subjective Progress Note Date: 04/18/22 The patient is seen at bedside and states her visual hallucination has been improving compared to couple days ago. Denies of any new neurological issues. Objective - Vital Signs Vital signs: Vital Signs Temp 98.0 F 04/18/22 12:22 Pulse 94 04/18/22 08:00 Resp 19 04/18/22 12:22 BP 146/82 04/18/22 12:22 Pulse Ox 95 04/18/22 08:00 FiO2 Intake & Output 04/17/22 04/18/22 04/18/22 18:59 06:59 18:59 Intake Total 400 300 Output Total 0 1 4300 Balance 400 -1 -4000 Weight 51.6 kg Intake: Oral 400 Hemodialysis 300 Output: Urine 0 Urine/Stool Mix 1 Hemodialysis 4300 Other: Voiding Method Toilet Toilet Toilet # Voids 3 - Exam GENERAL: The patient is lying in bed and is not in acute distress. NEUROLOGICAL: Higher mental function: The patient is awake, alert, oriented to self, place and time. Patient is following commands. No aphasia and no neglect. Cranial nerves: The pupils are round, right is 5-6mm and left is 4mm and reactive to light but more on left than right. Visual herr is legally blind but see's shadow/light-dark perception (that is old). Extraocular movement is intact no nystagmus is noted. Facial sensation is normal to touch throughout. The facial strength is normal throughout. Hearing is normal bilaterally to hand rub. Tongue is midline and moved [id number] without any difficulty. No dysarthria is noted. Shoulder shrug is normal bilaterally. Motor: The strength is 5 over 5 throughout. Normal tone and bulk. Cerebellum: Normal finger to nose bilaterally. Sensation: Sensation is normal to touch throughout. Reflexes (right/left): 1+ throughout. Plantars are downgoing bilaterally. Some other workup during this hospital visit consisted of: Patient sugar continues to be in the 200-[address] of the head is reported as there is hydrocephalus without change compared to old exam. No acute intracranial abnormality. - Labs CBC & Chem 7: 04/11/22 09:45 04/14/22 19:12 Labs: Abnormal Lab Results - Last 24 Hours (Table) 04/17/22 04/17/22 04/18/22 Range/Units 16:18 20:54 01:54 POC Glucose (mg/dL) 199 H 244 H 424 H (70-110) mg/dL Phosphorus (2.5-4.5) mg/dL 04/18/22 04/18/22 04/18/22 Range/Units 06:29 10:50 11:41 POC Glucose (mg/dL) 419 H 148 H (70-110) mg/dL Phosphorus 2.1 L (2.5-4.5) mg/dL Assessment and Plan Assessment: Acute on chronic Visual Hallucination (has it for years but this time is more prolonged): Unsure exact cause. Unsure if due metabolic derangement that exacerbated this. In past stated she had EEG and was told negative for seizure. ---stated improving. 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 Unsure if old and due to old eye prob lems (diabetic retinopathy/cataract). Diabetes type 1 and the patient is noncompliant with medication Hypertension Plan: Because of her anisocoria and visual hallucination: pending MRI of the brain as well as MRA of the head to rule out any other underlying cerebral dysfunction that acute or subacute. MRAs to rule out any aneurysm which I feel unlikely. Pending routine EEG to rule out seizure. Recommend long-term EEG or epilepsy monitoring unit to rule out any underlying seizures not noted on the routine EEG in the last EEG in our facility was on the 01/2022 I highly recommend the patient to follow-up a neurologist and neurosurgeon as an outpatient for the hydrocephalus. Psychiatry is on board Nephrology is on board We'll defer the rest of the medical management to primary team Upon discharge recommend the patient follow up with a neurologist as an outpatient within 1-2 weeks The plan discussed with the patient and her nurse. If MRI and MRA of the head are normal as well EEG is normal then patient is clear from neurological perspective. Time with Patient: Less than 30
[2022-04-18 14:01] LABS: Glucose,Whole Blood 91 mg/dL (70-110)
[2022-04-18 15:11] LABS: Glucose,Whole Blood 92 mg/dL (70-110)
--- NOTE | 2022-04-18 16:35 | MR ---
EXAMINATION TYPE: MR angio head wo con DATE OF EXAM: 04/18/2022 4:22 PM CLINICAL INDICATION:Female, 31 years old with history of anisocoria (right > left); COMPARISON: CT brain. MRI brain same day. Technical: Technical: 3-D [id number] Axial with MIP reconstruction. IV Contrast: None Findings: Vertebral arteries: The vertebral arteries are patent. The vertebral arteries are codominant. Basilar artery: The basilar artery is intact. The basilar artery bifurcation is normal. Internal Carotid arteries: The cervical, petrous, cavernous and supraclinoid segments are normal. KINDRA: Patent with no evidence of aneurysm. ACOM: Present without evidence of aneurysm. MCA: Patent with no evidence of aneurysm. DATA PROCESSING MECHANIC: Patent with no evidence of aneurysm. PCOM: Hypoplastic bilaterally. IMPRESSION: No evidence of aneurysm or significant stenosis.
--- NOTE | 2022-04-18 16:35 | MR ---
EXAMINATION TYPE: MR brain wo con DATE OF EXAM: 04/18/2022 4:23 PM COMPARISON: CT brain 04/16/2022 and 02/16/2022 CLINICAL INDICATION:Female, 31 years old with history of visual hallucination; TECHNIQUE: Multi planar, multi sequence imaging was performed through the brain including: T1, T2, In version recovery, Diffusion weighted imaging, and gradient echo imaging. No gadolinium was given. FINDINGS: In limits evaluation. Redemonstration of dilation of the ventricular system is not significantly changed from prior. There is scattered high T2 foci in the periventricular white matter. Midline structures show no abnormality . Diffusion-weighted imaging shows no evidence of restricted diffusion. The susceptibility weighted i mages do not reveal any evidence for micro-hemorrhage. The bone marrow signal is within normal limits. The paranasal sinuses and globes are unremarkable. IMPRESSION: 1. Dilation of the ventricular system which is not significantly changed from prior examination 2021. No evidence of intracranial mass or acute/subacute infarct. 2. Nonspecific white matter changes, likely secondary to small vessel ischemic disease.
[2022-04-18 16:42] LABS: Glucose,Whole Blood 127 mg/dL (70-110)
[2022-04-18 19:52] LABS: Glucose,Whole Blood 119 mg/dL (70-110)
[2022-04-18] MEDS: INSULIN DETEMIR (LEVEMIR) 100 UNIT/ML SYR SQ SCH (22:15)
[2022-04-18] MEDS: MIRTAZAPINE 15 MG TAB PO SCH (22:15)
[2022-04-18] MEDS: MELATONIN 5 MG TABLET PO SCH (22:16)
[2022-04-19 01:16] LABS: Glucose,Whole Blood 439 mg/dL (70-110)
[2022-04-19] MEDS: HYDROmorphone 2 MG TAB PO PRN ×2 (01:29→15:02)
--- NOTE | 2022-04-19 04:23 | EEG ---
ELECTROENCEPHALOGRAM REPORT CLINICAL HISTORY: This is a 31-year-old woman with visual hallucination. The video EEG is obtained to evaluate for seizure epileptiform activity. RELEVANT MEDICATION: The patient is on Ativan p.r.n. EEG TYPE: A routine 21-channel EEG is performed with video using the 10/20 electrode placement system. DESCRIPTION: Wakefulness is only obtained. During the awake state, the posterior-dominant rhythm consists of 8 to 9 hertz activity that is somewhat poorly modulated, poorly sustained. Otherwise, there is no sleep architecture seen. There is no focal slowing. Interictal and ictal is none. ACTIVATION PROCEDURE: Photic stimulation did not evoke a posterior driving response. There is no abnormality during the photic stimulation. Hyperventilation is not performed. CLINICAL INTERPRETATION: This is a normal routine EEG. There is no focal slowing, epileptiform discharge or seizure on the EEG. Normal EEG does not rule out underlying epilepsy. Clinical correlation is recommended. EMILY / KYAW: [id number] / DENISE
[2022-04-19] MEDS: diphenhydrAMINE 50 MG/ML 1 ML VIAL IVP PRN ×2 (04:40→14:57)
[2022-04-19 06:29] LABS: Glucose,Whole Blood 211 mg/dL (70-110)
[2022-04-19] MEDS: INSULIN ASPART (NovoLOG) 100 UNIT/ML VIAL SQ SCH ×6 (07:12→16:56)
[2022-04-19] MEDS: CALCIUM ACETATE 667 MG TAB PO SCH (07:13)
[2022-04-19] MEDS: carvediloL 12.5 MG TAB PO SCH ×2 (07:13→16:56)
[2022-04-19] MEDS: PANTOPRAZOLE 40 MG TABLET PO SCH (07:13)
--- NOTE | 2022-04-19 08:04 | PN ---
PROGRESS NOTE DATE OF SERVICE: 04/17/2022 CHIEF COMPLAINT: Stage 5 CKD. HISTORY OF PRESENT ILLNESS: This lady is doing fairly well, but complaining incessantly about "pain everywhere." She keeps demanding analgesics. PHYSICAL EXAMINATION: Unchanged. IMPRESSIONS: 1. Stage 5 chronic kidney disease. 2. Uncontrolled hypertension. 3. Uncontrolled type 1 insulin-dependent diabetes mellitus. 4. Major depression. 5. Complaints of dizziness and hallucinations. PLAN: No change in her program right now. She will have analgesics ordered temporarily. She is being seen by Psychiatry and Neurology. MMODL / IJN: [id number] /
--- NOTE | 2022-04-19 08:24 | PN ---
PROGRESS NOTE DATE OF SERVICE: 04/16/2022 CHIEF COMPLAINT: Renal failure. HISTORY OF PRESENT ILLNESS: This lady continues to complain of multiple pains and demanding Dilaudid. Blood sugars are still erratic now, but they are much better than they have been and blood pressures are doing fairly well. PHYSICAL EXAMINATION: CHEST: Clear. CARDIAC: Demonstrates sinus rhythm. ABDOMEN: Soft and nontender. There is no tenderness in her arms, legs, or chest where she professes to have pain. IMPRESSION: 1. Generalized and diffuse pain, etiology unknown. 2. Stage 5 chronic kidney disease. 3. Uncontrolled hypertension. 4. Uncontrolled type 1 diabetes mellitus. 5. Depression. PLAN: She will be given very limited narcotic pain medication and her Requip will be increased to twice a day. MMODL / IJN: [id number] /
[2022-04-19] MEDS: ASPIRIN 81 MG PO SCH (08:32)
[2022-04-19] MEDS: CYANOCOBALAMIN 500 MCG TAB PO SCH (08:32)
[2022-04-19] MEDS: cloNIDine HCL 0.1 MG TAB PO SCH ×2 (08:32→16:56)
[2022-04-19] MEDS: ATORVASTATIN 40 MG TAB PO SCH (08:32)
[2022-04-19] MEDS: rOPINIRole HCL 4 MG TABLET PO SCH (08:33)
[2022-04-19] MEDS: TORSEMIDE 20 MG TAB PO SCH (08:33)
[2022-04-19] MEDS: DULoxetine HCL 30 MG CAPSULE.DR PO SCH (08:34)
[2022-04-19] MEDS: buPROPion SR 150 MG TABLET.ER PO SCH (08:34)
--- NOTE | 2022-04-19 08:34 | PN ---
PROGRESS NOTE DATE OF SERVICE: 04/15/2022 CHIEF COMPLAINT: Renal failure, uncontrolled hypertension and diabetes. HISTORY OF PRESENT ILLNESS: This lady has been stable. Blood pressures have been better at this time. Blood sugars are still fluctuating somewhat. The part of the issue is that the nurses are withholding her insulin orders when her sugars low. Traditionally, she then goes into the 100s. REVIEW OF SYSTEMS: She is complaining of back pain, visual hallucinations, and headache. PHYSICAL EXAMINATION: NECK: Supple. CHEST: Clear. CARDIAC: Normal. ABDOMEN: Soft, nontender. IMPRESSION: 1. Renal failure. 2. Uncontrolled hypertension. 3. Uncontrolled diabetes. PLAN: Continue efforts to bring her blood sugars under better control. They are improved. MMODL / IJN: [id number] /
--- NOTE | 2022-04-19 08:34 | PN ---
PROGRESS NOTE CHIEF COMPLAINT: Uncontrolled hypertension and diabetes. HISTORY OF PRESENT ILLNESS: This lady is . She complains of chest pain "from coughing." She is incessantly asking for pain medications and changes in the administration schedules for some of her medication. She is scheduled for EEG and MRI of the brain today. PHYSICAL EXAMINATION: VITAL SIGNS: Blood pressure is quite well controlled at this point. CHEST: Clear. CARDIAC: Normal. ABDOMEN: Soft, nontender. IMPRESSION: 1. Uncontrolled hypertension. 2. Uncontrolled type 1 insulin-dependent diabetes mellitus. 3. Major depression. 4. Headaches and hallucinations. 5. Stage 5 chronic kidney disease. PLAN: Await for neurologic studies. She is going to be extremely difficult to discharge back home and will likely come straight back to the hospital as per her recent pattern. MMODL / IJN: [id number] /
[2022-04-19] MEDS ORDERED: HYDROmorphone 0.5 MG/0.5 ML SYRINGE IVP STA (09:11)
[2022-04-19 09:14] LABS: Glucose,Whole Blood 53 mg/dL (70-110)
[2022-04-19] MEDS ORDERED: guaiFENesin 600 MG TABLET.ER PO ONE (09:23)
[2022-04-19 09:27] LABS: Glucose,Whole Blood 72 mg/dL (70-110)
[2022-04-19 10:27] LABS: Anisocytosis Slight; Basophils # (A) 0.1 k/uL (0-0.2); Basophils % (A) 1 %; Eosinophils # (A) 0.4 k/uL (0-0.7); Eosinophils % (A) 6 %; HCT 24.6 % (34.0-46.0); HGB 8.3 gm/dL (11.4-16.0); Hypochromasia Slight; Lymphocytes # (A) 0.7 k/uL (1.0-4.8); Lymphocytes % (A) 12 %; MCH 31.3 pg (25.0-35.0); MCHC 33.6 g/dL (31.0-37.0); MCV 93.1 fL (80.0-100.0); Mean Platelet Volume 9.3; Monocytes # (A) 0.5 k/uL (0-1.0); Monocytes % (A) 8 %; Neutrophils # (A) 4.2 k/uL (1.3-7.7); Neutrophils % (A) 70 %; Platelet Count 258 k/uL (150-450); RBC 2.64 m/uL (3.80-5.40); RDW 16.3 % (11.5-15.5)
[2022-04-19 10:41] LABS: ALT 42 U/L (4-34); AST 58 U/L (14-36); African American GFR (CKD) 13 (>60 ml/min/1.73 sqM); Albumin 3.8 g/dL (3.5-5.0); Albumin/Globulin Ratio 1.7; Alkaline Phosphatase 231 U/L (38-126); Anion Gap 13 mmol/L; Blood Urea Nitrogen 65 mg/dL (7-17); Calcium 8.6 mg/dL (8.4-10.2); Carbon Dioxide 22 mmol/L (22-30); Chloride 101 mmol/L (98-107); Globulin 2.3 g/dL; Glucose 62 mg/dL (74-99); Non-African American GFR(CKD) 11 (>60 ml/min/1.73 sqM); Potassium 5.8 mmol/L (3.5-5.1); Sodium 136 mmol/L (137-145); Total Bilirubin 0.5 mg/dL (0.2-1.3); Total Protein 6.1 g/dL (6.3-8.2)
--- NOTE | 2022-04-19 10:55 | P.PN ---
Subjective Patient is seen in follow-up for end-stage renal disease. Resting in bed. No active complaints. Requesting Vital signs are stable. General: No acute distress. HEENT: Head exam is unremarkable. LUNGS: Breath sounds decreased. HEART: Rate and Rhythm are regular. ABDOMEN: Soft, no distention. EXTREMITITES: No edema. Objective - Vital Signs Vital signs: Vital Signs Temp 98.2 F 04/19/22 07:37 Pulse 84 04/19/22 07:37 Resp 19 04/19/22 07:37 BP 168/89 04/19/22 07:37 Pulse Ox 96 04/19/22 07:37 FiO2 Intake & Output 04/18/22 04/19/22 04/19/22 18:59 06:59 18:59 Intake Total 300 Output Total 4300 Balance -4000 Weight 49.5 kg Intake: Hemodialysis 300 Output: Hemodialysis 4300 Other: Voiding Method Toilet Toilet Toilet # Voids 2 # Bowel Movements 1 1 - Labs CBC & Chem 7: 04/19/22 10:05 04/19/22 10:05 Labs: Abnormal Lab Results - Last 24 Hours (Table) 04/18/22 04/18/22 04/18/22 Range/Units 10:50 10:50 11:41 RBC (3.80-5.40) m/uL Hgb (11.4-16.0) gm/dL Hct (34.0-46.0) % RDW (11.5-15.5) % Lymphocytes # (1.0-4.8) k/uL Sodium (137-145) mmol/L Potassium (3.5-5.1) mmol/L BUN (7-17) mg/dL Creatinine (0.52-1.04) mg/dL Glucose (74-99) mg/dL POC Glucose (mg/dL) 148 H (70-110) mg/dL Phosphorus 2.1 L (2.5-4.5) mg/dL AST (14-36) U/L ALT (4-34) U/L Alkaline Phosphatase (38-126) U/L Total Protein (6.3-8.2) g/dL PTH Intact 351.0 H (14.0-72.0) pg/mL 04/18/22 04/18/22 04/19/22 Range/Units 16:39 19:50 01:14 RBC (3.80-5.40) m/uL Hgb (11.4-16.0) gm/dL Hct (34.0-46.0) % RDW (11.5-15.5) % Lymphocytes # (1.0-4.8) k/uL Sodium (137-145) mmol/L Potassium (3.5-5.1) mmol/L BUN (7-17) mg/dL Creatinine (0.52-1.04) mg/dL Glucose (74-99) mg/dL POC Glucose (mg/dL) 127 H 119 H 439 H (70-110) mg/dL Phosphorus (2.5-4.5) mg/dL AST (14-36) U/L ALT (4-34) U/L Alkaline Phosphatase (38-126) U/L Total Protein (6.3-8.2) g/dL PTH Intact (14.0-72.0) pg/mL 04/19/22 04/19/22 04/19/22 Range/Units 06:28 09:12 10:05 RBC 2.64 L (3.80-5.40) m/uL Hgb 8.3 L (11.4-16.0) gm/dL Hct 24.6 L (34.0-46.0) % RDW 16.3 H (11.5-15.5) % Lymphocytes # 0.7 L (1.0-4.8) k/uL Sodium (137-145) mmol/L Potassium (3.5-5.1) mmol/L BUN (7-17) mg/dL Creatinine (0.52-1.04) mg/dL Glucose (74-99) mg/dL POC Glucose (mg/dL) 211 H 53 L (70-110) mg/dL Phosphorus (2.5-4.5) mg/dL AST (14-36) U/L ALT (4-34) U/L Alkaline Phosphatase (38-126) U/L Total Protein (6.3-8.2) g/dL PTH Intact (14.0-72.0) pg/mL 04/19/22 Range/Units 10:05 RBC (3.80-5.40) m/uL Hgb (11.4-16.0) gm/dL Hct (34.0-46.0) % RDW (11.5-15.5) % Lymphocytes # (1.0-4.8) k/uL Sodium 136 L (137-145) mmol/L Potassium 5.8 H (3.5-5.1) mmol/L BUN 65 H (7-17) mg/dL Creatinine 4.79 H (0.52-1.04) mg/dL Glucose 62 L (74-99) mg/dL POC Glucose (mg/dL) (70-110) mg/dL Phosphorus (2.5-4.5) mg/dL AST 58 H (14-36) U/L ALT 42 H (4-34) U/L Alkaline Phosphatase 231 H (38-126) U/L Total Protein 6.1 L (6.3-8.2) g/dL PTH Intact (14.0-72.0) pg/mL Assessment and Plan Plan: Assessment: 1. End-stage renal disease maintained on hemodialysis on Monday schedule. 2. Volume overload. Improved with ultrafiltration. 3. Brittle diabetes. 4. Hypertension with chronic kidney disease. Blood pressures labile. 5. 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 Phosphorus 2.1 dated 04/18/2022. PTH 351. 6. Anemia of chronic kidney disease. 7. Hyperkalemia secondary to chronic kidney disease. Plan: Hemodialysis today - if discharged today, next treatment will be Monday outpatient. Avoid NSAIDs - stopped toradol. Stopped hydralazine due to history of pericardial effusion. Avoid acei/arb and Aldactone due to frequent hyperkalemia. Will add imdur if bp staying high. Hold PhosLo. Add Aranesp. Check iron studies.
[2022-04-19 11:26] LABS: Glucose,Whole Blood 252 mg/dL (70-110)
[2022-04-19] MEDS ORDERED: DARBEPOETIN ALFA 40 MCG/0.4 ML SYRINGE SQ SCH (12:00)
[2022-04-19] MEDS: LORazepam 1 MG TAB PO PRN (12:16)
--- NOTE | 2022-04-19 12:55 | P.PN ---
Subjective Progress Note Date: 04/19/22 Patient is seen at bedside and continues to feel visual hallucination is not as bad. Denies any new neurological issues. Objective - Vital Signs Vital signs: Vital Signs Temp 98.2 F 04/19/22 07:37 Pulse 84 04/19/22 07:37 Resp 19 04/19/22 07:37 BP 168/89 04/19/22 07:37 Pulse Ox 96 04/19/22 07:37 FiO2 Intake & Output 04/18/22 04/19/22 04/19/22 18:59 06:59 18:59 Intake Total 300 Output Total 4300 Balance -4000 Weight 49.5 kg Intake: Hemodialysis 300 Output: Hemodialysis 4300 Other: Voiding Method Toilet Toilet Toilet # Voids 2 # Bowel Movements 1 1 - Exam GENERAL: The patient is lying in bed and is not in acute distress. NEUROLOGICAL: Higher mental function: The patient is awake, alert, oriented to self, place and time. Patient is following commands. No aphasia and no neglect. Cranial nerves: The pupils are round, right is 5-6mm and left is 4mm and reactive to light but more on left than right. Visual herr is legally blind but see's shadow/light-dark perception (that is old). Extraocular movement is intact no nystagmus is noted. Facial sensation is normal to touch throughout. The facial strength is normal throughout. Hearing is normal bilaterally to hand rub. Tongue is midline and moved [id number] without any difficulty. No dysarthria is noted. Shoulder shrug is normal bilaterally. Motor: The strength is 5 over 5 throughout. Normal tone and bulk. Cerebellum: Normal finger to nose bilaterally. Sensation: Sensation is normal to touch throughout. Reflexes (right/left): 1+ throughout. Plantars are downgoing bilaterally. Some other workup during this hospital visit consisted of: Patient sugar continues to be in the 200-[address] of the head is reported as there is hydrocephalus without change compared to old exam. No acute intracranial abnormality. Routine EEG is normal. There is no focal slowing, epileptiform discharges or seizure on the EEG. MRI Brain is reported as Dilation of the ventricular system which is not significantly changed from prior examination 02/16/2022. No evidence of intracranial mass or acute/subacute infarct. Nonspecific white matter changes, likely secondary to small vessel ischemic disease. I personally reviewed MRI and no acute or subacute ischemic stroke. No mass. I feel there is dilated posterior horn of lateral ventricles and no appreciable dilation of 3rd or 4rth ventricle. MRA head is reported as no significant evidence of aneurysm or significant stenosis. - Labs CBC & Chem 7: 04/19/22 10:05 04/19/22 10:05 Labs: Abnormal Lab Results - Last 24 Hours (Table) 04/18/22 04/18/22 04/18/22 Range/Units 10:50 16:39 19:50 RBC (3.80-5.40) m/uL Hgb (11.4-16.0) gm/dL Hct (34.0-46.0) % RDW (11.5-15.5) % Lymphocytes # (1.0-4.8) k/uL Sodium (137-145) mmol/L Potassium (3.5-5.1) mmol/L BUN (7-17) mg/dL Creatinine (0.52-1.04) mg/dL Glucose (74-99) mg/dL POC Glucose (mg/dL) 127 H 119 H (70-110) mg/dL AST (14-36) U/L ALT (4-34) U/L Alkaline Phosphatase (38-126) U/L Total Protein (6.3-8.2) g/dL PTH Intact 351.0 H (14.0-72.0) pg/mL 04/19/22 04/19/22 04/19/22 Range/Units 01:14 06:28 09:12 RBC (3.80-5.40) m/uL Hgb (11.4-16.0) gm/dL Hct (34.0-46.0) % RDW (11.5-15.5) % Lymphocytes # (1.0-4.8) k/uL Sodium (137-145) mmol/L Potassium (3.5-5.1) mmol/L BUN (7-17) mg/dL Creatinine (0.52-1.04) mg/dL Glucose (74-99) mg/dL POC Glucose (mg/dL) 439 H 211 H 53 L (70-110) mg/dL AST (14-36) U/L ALT (4-34) U/L Alkaline Phosphatase (38-126) U/L Total Protein (6.3-8.2) g/dL PTH Intact (14.0-72.0) pg/mL 04/19/22 04/19/22 04/19/22 Range/Units 10:05 10:05 11:24 RBC 2.64 L (3.80-5.40) m/uL Hgb 8.3 L (11.4-16.0) gm/dL Hct 24.6 L (34.0-46.0) % RDW 16.3 H (11.5-15.5) % Lymphocytes # 0.7 L (1.0-4.8) k/uL Sodium 136 L (137-145) mmol/L Potassium 5.8 H (3.5-5.1) mmol/L BUN 65 H (7-17) mg/dL Creatinine 4.79 H (0.52-1.04) mg/dL Glucose 62 L (74-99) mg/dL POC Glucose (mg/dL) 252 H (70-110) mg/dL AST 58 H (14-36) U/L ALT 42 H (4-34) U/L Alkaline Phosphatase 231 H (38-126) U/L Total Protein 6.1 L (6.3-8.2) g/dL PTH Intact (14.0-72.0) pg/mL Assessment and Plan Assessment: Acute on chronic Visual Hallucination (has it for years but this time is more prolonged): Unsure exact cause. Unsure if due metabolic derangement that ex acerbated this. Possibly due to her visual defect. EEG is negative for seizure. ---stated improving. 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 Unsure if old and due to old eye problems (diabetic retinopathy/cataract). No aneurysm on MRA head. Diabetes type 1 and the patient is noncompliant with medication Hypertension Plan: Because of her anisocoria and visual hallucination and visual hallucination recommend patient to follow-up with Client Coordinator as outpatient. Recommend long-term EEG or epilepsy monitoring unit to rule out any underlying seizures. I highly recommend the patient to follow-up a neurologist and neurosurgeon as an outpatient for the hydrocephalus. Psychiatry is on board Nephrology is on board We'll defer the rest of the medical management to primary team Upon discharge recommend the patient follow up with a neurologist as an outpatient within 1-2 weeks The plan discussed with the patient and her nurse. No further neurological work-up. Will sign off. Please reconsult if any further concerns. Time with Patient: Less than 30
[2022-04-19 14:47] VITALS: BMI 18.7
[2022-04-19 14:59] LABS: % Iron Saturation 14.84 (12.00-45.00)
[2022-04-19 16:19] LABS: Glucose,Whole Blood 193 mg/dL (70-110)
[2022-04-19 16:21] VITALS: BP 131/80; PULSE 77; RESP 18; TEMP 96.4
--- NOTE | 2022-04-20 06:28 | DS ---
DISCHARGE SUMMARY CHIEF COMPLAINT: Uncontrolled hypertension, diabetes, and renal failure. HISTORY OF PRESENT ILLNESS AND PHYSICAL EXAMINATION: Details of this lady's history and physical can be found in the initial workup. LABORATORY STUDIES: While she was in the hospital, she had laboratory studies, details of which can be found in the laboratory section of her chart. COURSE IN THE HOSPITAL: After admission, she was placed on bedrest, and followed by Renal Service. She was dialyzed every other day. Her blood pressure was brought under good control, and her blood sugars continued to fluctuate, but they were eventually brought down to about the best they have ever been controlled since she has been under my care. She is doing well and it was felt she could be discharged, but she began to come up with all kinds of symptoms such as generalized pain "everywhere", shortness of breath, hallucinations, headache, . She was seen by Psychiatry, placed on medication. She was also seen by Neurology. Studies were negative. She was under good control, and it was felt she could be discharged on the . She will go home on her usual activity, diet, and medication including her dialysis. It is highly likely that she will do what she clearly has been doing medications appropriately and come straight back to the emergency room. FINAL DIAGNOSES: 1. Uncontrolled hypertension. 2. Uncontrolled type 1 insulin-dependent diabetes mellitus. 3. Stage 5 chronic kidney disease. 4. Depression. 5. Amblyopia. OPERATIONS: None. CONSULTATIONS: Nephrology, Psychiatry, and Neurology. MMFLORIDALMA / KYAW: [id number] /
== END 2022-04-19 18:17 | disposition home health service (06) | DRG 637 ==
LOC: EC 20:43 → 3SCARD 04-10 00:30 → 4SSUR 04-16 04:02
PROVIDERS: ADMIT Family Medicine; ATTEND Family Medicine
PROC: 5A1D70Z Performance of Urinary Filtration, Intermittent, Less than 6 Hours Per Day (ICD-10-PCS; principal; 2022-04-11)
DX: E10.10 Type 1 diabetes mellitus with ketoacidosis without coma (principal); N18.6 End stage renal disease; I12.0 Hypertensive chronic kidney disease with stage 5 chronic kidney disease or end stage renal disease; G91.9 Hydrocephalus, unspecified; Q87.42 Marfan syndrome with ocular manifestations; F32.0 Major depressive disorder, single episode, mild; E10.649 Type 1 diabetes mellitus with hypoglycemia without coma; D63.1 Anemia in chronic kidney disease; E10.42 Type 1 diabetes mellitus with diabetic polyneuropathy; E10.22 Type 1 diabetes mellitus with diabetic chronic kidney disease; G25.81 Restless legs syndrome; G40.909 Epilepsy, unspecified, not intractable, without status epilepticus; E10.319 Type 1 diabetes mellitus with unspecified diabetic retinopathy without macular edema; Z86.74 Personal history of sudden cardiac arrest; H54.8 Legal blindness, as defined in USA; R74.01 Elevation of levels of liver transaminase levels; R44.1 Visual hallucinations; T38.3X6A Underdosing of insulin and oral hypoglycemic [antidiabetic] drugs, initial encounter; M89.8X9 Other specified disorders of bone, unspecified site; H53.009 Unspecified amblyopia, unspecified eye; Z91.199 Patient's noncompliance with other medical treatment and regimen due to unspecified reason; F41.1 Generalized anxiety disorder; F41.0 Panic disorder [episodic paroxysmal anxiety]; L29.9 Pruritus, unspecified; M54.9 Dorsalgia, unspecified; H57.02 Anisocoria; Z28.310 Unvaccinated for COVID-19; Z99.2 Dependence on renal dialysis; Z79.899 Other long term (current) drug therapy; Z79.82 Long term (current) use of aspirin; Z79.4 Long term (current) use of insulin; Z91.013 Allergy to seafood; Z91.041 Radiographic dye allergy status; Z86.73 Personal history of transient ischemic attack (TIA), and cerebral infarction without residual deficits; Z91.14 Patient's other noncompliance with medication regimen; Z63.5 Disruption of family by separation and divorce; Z86.79 Personal history of other diseases of the circulatory system; Z87.19 Personal history of other diseases of the digestive system
CPT/HCPCS: 36415; 70450; 70544; 70551; 71046; 80048; 80051; 80053; 82009; 82728; 82947; 83540; 83550; 83605; 83880; 83970; 84100; 84484; 85025; 90935; 93005; 95816; 96365; 96366; 96375; 99285

== ENCOUNTER 2022-04-24 20:05 | Inpatient (IN) | payer MEDICARE, OTHER ==
--- NOTE | 2022-04-24 20:53 | ED ---
Chest Pain HPI - General Chief Complaint: Chest Pain Stated Complaint: Chest Pain Time Seen by Provider: 04/24/22 20:22 Source: patient, RN notes reviewed Mode of arrival: EMS Limitations: no limitations - History of Present Illness Initial Comments: 31-year-old female with a history of CVA history of dialysis from chronic renal failure who presents with complaints of a cough for about one week cough with green phlegm she states today her blood pressure was 257/118 she's had chest pain from the cough she believes pain is sharp he denies any fevers chills or sweats she points to the anterior chest wall is a source of the pain in the area the pain does get worse or certain movements and deep breathing and coughing. No nausea no vomiting she states she did get dialysis 2 days ago and was a completely dialysis. She did call her doctor was told come in because of blood pressure. MD Complaint: chest pain, other - Related Data Home Medications Medication Instructions Recorded Confirmed Ergocalciferol (Vitamin D2) 1,250 mcg PO Q30D 04/03/21 04/10/22 [Drisdol (50,000 Iu)] carvediloL [Coreg] 25 mg PO BID 04/03/21 04/10/22 Escitalopram [Lexapro] 20 mg PO DAILY 04/17/21 04/10/22 Albuterol Inhaler [Ventolin Hfa 2 puff INHALATION RT-QID PRN 12/06/21 04/10/22 Inhaler] Aspirin 81 mg PO DAILY 12/06/21 04/10/22 Methoxy Peg-Epoetin Beta [Mircera] 200 mcg IVPB Q14D 12/06/21 04/10/22 NIFEdipine XL [Procardia XL] 60 mg PO BID 12/06/21 04/10/22 Melatonin [Melatonin Dissolving 10 mg PO HS 12/21/21 04/10/22 Tablet] Lidocaine-Prilocaine Cream [Emla 1 applic TOPICAL MOWEFR PRN 02/09/22 04/10/22 Cream 2.5%/2.5%] buPROPion SR [Wellbutrin SR] 150 mg PO BID 02/09/22 04/10/22 Previous Rx's Medication Instructions Recorded Acetaminophen Tab [Tylenol] 650 mg PO Q6HR PRN #30 tab 04/09/21 Glucagon Emergency Kit 1 mg IM ONCE PRN #1 kit 06/15/21 Cyanocobalamin [Vitamin B-12] 1,000 mcg PO DAILY #60 tab 09/06/21 Atorvastatin [Lipitor] 40 mg PO DAILY 30 Days #30 tab 10/13/21 Calcium Acetate [PhosLo] 667 mg PO TID-W/MEALS 30 Days #90 10/13/21 tab Pantoprazole Sodium [Protonix] 20 mg PO BID #30 tab 10/15/21 LORazepam [Ativan] 1 mg PO TID PRN #90 tab 12/09/21 hydrOXYzine HCL [Atarax] 25 mg PO TID PRN #90 tab 12/09/21 Darbepoetin Tate [Aranesp] 40 mcg SQ Q7D each 04/08/22 DULoxetine HCL [Cymbalta] 30 mg PO BID 30 Days #60 cap 04/19/22 INSULIN ASPART (NovoLOG) [NovoLOG 6 unit SQ TID-W/MEALS #90 each 04/19/22 (formulary)] Insulin Detemir (Levemir) [Levemir] 12 unit SQ HS #30 each 04/19/22 Mirtazapine [Remeron] 45 mg PO HS 30 Days #30 tab 04/19/22 Torsemide [Demadex] 40 mg PO DAILY #10 tab 04/19/22 cloNIDine HCL [Catapres] 0.3 mg PO TID 90 Days #90 tab 04/19/22 rOPINIRole HCL [Requip] 2 mg PO BID 30 Days #60 tab 04/19/22 traZODone HCL [Desyrel] 50 mg PO HS PRN #30 tab 04/19/22 Allergies Allergy/AdvReac Type Severity Reaction Status Date / Time Fish Containing Products Allergy Rash/Hives Verified 04/09/22 20:48 [Fish] iodine Allergy Anaphylaxis Verified 04/09/22 20:48 Review of Systems ROS Statement: Those systems with pertinent positive or pertinent negative responses have been documented in the HPI. ROS Other: All systems not noted in ROS Statement are negative. EKG Findings - EKG Results: EKG: interpreted by [place], sinus rhythm (EKG interpreted by ia EKG shows ventricular rate normal sinus rhythm at 86 NC interval 178 QRS duration 100 QT since QTC 387/4:30 of atrial enlargement as he deviation) Past Medical History Past Medical History: CVA/TIA, Diabetes Mellitus, Dialysis, Eye Disorder, Hypertension, Renal Disease Additional Past Medical History / Comment(s): ESRD with hemodialysis M/W/F, IDDM type 1, DKA, neuropathy bilateral legs/feet, diabetic retinopathy/legally blind, RLS, gastritis, severe hypokalemia, fluid retention in abdomin/legs. History of Any Multi-Drug Resistant Organisms: None Reported Past Surgical History: Appendectomy, Section, Cholecystectomy Additional Past Surgical History / Comment(s): fistula left arm Past Anesthesia/Blood Transfusion Reactions: No Reported Reaction Past Psychological History: Anxiety, Depression Smoking Status: Never smoker Past Alcohol Use History: None Reported Past Drug Use History: None Reported - Past Family History Mother Family Medical History: Cancer, Hypertension Additional Family Medical History / Comment(s): Thyroid cancer, bipolar Father Family Medical History: Seizure Disorder Additional Family Medical History / Comment(s): Epilepsy General Exam - General Exam Comments Initial Comments: This is a well-developed thin appearing female who is awake alert oriented 4 Limitations: no limitations General appearance: alert, anxious Head exam: Present: atraumatic, normocephalic, normal inspection Eye exam: Present: normal appearance, PERRL, EOMI. Absent: scleral icterus, conjunctival injection, periorbital swelling ENT exam: Present: normal exam, mucous membranes moist Neck exam: Present: normal inspection. Absent: tenderness, meningismus, lymphadenopathy Respiratory exam: Present: normal lung sounds bilaterally, chest wall tenderness (Social tenderness palpation along the costosternal margins bilaterally no step-off or crepitation). Absent: respiratory distress, wheezes, rales, rhonchi, stridor Cardiovascular Exam: Present: regular rate, normal rhythm, normal heart sounds. Absent: systolic murmur, diastolic murmur, rubs, gallop, clicks GI/Abdominal exam: Present: soft, normal bowel sounds. Absent: distended, tenderness, guarding, rebound, rigid Extremities exam: Present: full ROM, normal capillary refill, other (Analysis shunt). Absent: tenderness, pedal edema, joint swelling, calf tenderness Back exam: Present: normal inspection Neurological exam: Present: alert, oriented X3, CN II-XII intact Psychiatric exam: Present: normal affect, normal mood Skin exam: Present: warm, dry, intact, pallor. Absent: rash Course Vital Signs 04/24/22 04/24/22 04/24/22 20:08 20:11 21:11 Temperature 99 F Pulse Rate 86 86 Respiratory 20 Rate Blood Pressure 241/112 239/125 O2 Sat by Pulse 85 L 99 Oximetry 04/24/22 04/24/22 04/24/22 21:36 22:06 22:41 Temperature Pulse Rate 86 86 86 Respiratory 28 H Rate Blood Pressure 215/117 209/106 198/109 O2 Sat by Pulse Oximetry 04/24/22 23:03 Temperature Pulse Rate 85 Respiratory 24 Rate Blood Pressure 213/106 O2 Sat by Pulse 95 Oximetry Chest Pain MDM - MDM I did review the imaging and interpreted evidence of increased pulmonary vascular congestion I did discuss findings with patient she has evidence of increased pulmonary vascular congestion elevated creatinine does have some chest pain but it appears be musculoskeletal from coughing she has Coban 19 positive test results with subsequent bronchitis. She will be admitted the case was discussed with Dr. Llanes I also did discuss the case with Dr. Amaro for dialysis in the morning. Patient's initial pulse ox was 85% room air she is 93 on 2 L. Pain is improved after pain medication. Blood pressure is improved Disposition Clinical Impression: COVID-19, Bronchitis, Chronic renal failure, Hypoxemia, Costochondritis, Chest wall syndrome, Febrile illness, acute Disposition: ADMITTED IP TO THIS HOSP Condition: Fair Referrals: Roque Buckner MD [Primary Care Provider] - 1-2 days Decision Date: 04/24/22 Decision Time: 23:30
[2022-04-24] MEDS ORDERED: hydrALAZINE HCL 20 MG/ML 1 ML VIAL IVP STA (20:57)
[2022-04-24] MEDS ORDERED: LORazepam 2 MG/ML INJ IV STA (20:57)
--- NOTE | 2022-04-24 21:19 | XR ---
EXAMINATION TYPE: XR chest 2V DATE OF EXAM: 04/24/2022 COMPARISON: 04/09/2022 HISTORY: Chest pain TECHNIQUE: FINDINGS: Heart is enlarged. There is some mild pulmonary interstitial edema. There are chest leads. Bony thorax is intact. IMPRESSION: There is some mild pulmonary interstitial edema which appears new compared to recent exam and is nonspecific. This could be acute heart failure.
[2022-04-24 21:29] LABS: Anisocytosis Slight; Basophils # (A) 0.1 k/uL (0-0.2); Basophils % (A) 1 %; Eosinophils # (A) 0.4 k/uL (0-0.7); Eosinophils % (A) 3 %; HCT 24.3 % (34.0-46.0); HGB 8.5 gm/dL (11.4-16.0); Lymphocytes # (A) 0.8 k/uL (1.0-4.8); Lymphocytes % (A) 7 %; MCH 32.5 pg (25.0-35.0); MCV 93.1 fL (80.0-100.0); Monocytes # (A) 0.5 k/uL (0-1.0); Monocytes % (A) 4 %; Neutrophils % (A) 85 %; Platelet Count 267 k/uL (150-450); RBC 2.61 m/uL (3.80-5.40); RDW 16.3 % (11.5-15.5); WBC 11.8 k/uL (3.8-10.6)
[2022-04-24 21:45] LABS: INR 0.9 (<1.2); Partial Thromboplastin Time 22.9 sec (22.0-30.0); Prothrombin Time 10.2 sec (9.0-12.0)
[2022-04-24 21:53] LABS: Albumin 4.4 g/dL (3.5-5.0); Magnesium 1.8 mg/dL (1.6-2.3); Potassium 5.9 mmol/L (3.5-5.1); Total Bilirubin 0.7 mg/dL (0.2-1.3); Total Protein 6.8 g/dL (6.3-8.2)
[2022-04-24] MEDS ORDERED: MORPHINE SULFATE 4 MG/ML SYRINGE IVP STA (23:29)
--- NOTE | 2022-04-25 00:02 | ED ---
Medical Decision Making - Lab Data Result diagrams: 04/24/22 20:51 04/24/22 20:51 Lab Results 04/24/22 04/24/22 04/24/22 Range/Units 20:51 20:51 20:51 WBC 11.8 H (3.8-10.6) k/uL RBC 2.61 L (3.80-5.40) m/uL Hgb 8.5 L (11.4-16.0) gm/dL Hct 24.3 L (34.0-46.0) % MCV 93.1 (80.0-100.0) fL MCH 32.5 (25.0-35.0) pg MCHC 35.0 (31.0-37.0) g/dL RDW 16.3 H (11.5-15.5) % Plt Count 267 (150-450) k/uL MPV 9.0 Neutrophils % 85 % Lymphocytes % 7 % Monocytes % 4 % Eosinophils % 3 % Basophils % 1 % Neutrophils # 10.0 H (1.3-7.7) k/uL Lymphocytes # 0.8 L (1.0-4.8) k/uL Monocytes # 0.5 (0-1.0) k/uL Eosinophils # 0.4 (0-0.7) k/uL Basophils # 0.1 (0-0.2) k/uL Anisocytosis Slight PT 10.2 (9.0-12.0) sec INR 0.9 (<1.2) APTT 22.9 (22.0-30.0) sec Sodium 134 L (137-145) mmol/L Potassium 5.9 H (3.5-5.1) mmol/L Chloride 98 (98-107) mmol/L Carbon Dioxide 21 L (22-30) mmol/L Anion Gap 15 mmol/L BUN 59 H (7-17) mg/dL Creatinine 7.33 H* (0.52-1.04) mg/dL Est GFR (CKD-EPI)AfAm 8 (>60 ml/min/1.73 sqM) Est GFR (CKD-EPI)NonAf 7 (>60 ml/min/1.73 sqM) Glucose 203 H (74-99) mg/dL Calcium 9.0 (8.4-10.2) mg/dL Magnesium 1.8 (1.6-2.3) mg/dL Total Bilirubin 0.7 (0.2-1.3) mg/dL AST 68 H (14-36) U/L ALT 122 H (4-34) U/L Alkaline Phosphatase 358 H (38-126) U/L Troponin I (0.000-0.034) ng/mL Total Protein 6.8 (6.3-8.2) g/dL Albumin 4.4 (3.5-5.0) g/dL Lipase 253 (23-300) U/L Coronavirus (PCR) (Not Detectd) 04/24/22 04/24/22 Range/Units 20:51 20:53 WBC (3.8-10.6) k/uL RBC (3.80-5.40) m/uL Hgb (11.4-16.0) gm/dL Hct (34.0-46.0) % MCV (80.0-100.0) fL MCH (25.0-35.0) pg MCHC (31.0-37.0) g/dL RDW (11.5-15.5) % Plt Count (150-450) k/uL MPV Neutrophils % % Lymphocytes % % Monocytes % % Eosinophils % % Basophils % % Neutrophils # (1.3-7.7) k/uL Lymphocytes # (1.0-4.8) k/uL Monocytes # (0-1.0) k/uL Eosinophils # (0-0.7) k/uL Basophils # (0-0.2) k/uL Anisocytosis PT (9.0-12.0) sec INR (<1.2) APTT (22.0-30.0) sec Sodium (137-145) mmol/L Potassium (3.5-5.1) mmol/L Chloride (98-107) mmol/L Carbon Dioxide (22-30) mmol/L Anion Gap mmol/L BUN (7-17) mg/dL Creatinine (0.52-1.04) mg/dL Est GFR (CKD-EPI)AfAm (>60 ml/min/1.73 sqM) Est GFR (CKD-EPI)NonAf (>60 ml/min/1.73 sqM) Glucose (74-99) mg/dL Calcium (8.4-10.2) mg/dL Magnesium (1.6-2.3) mg/dL Total Bilirubin (0.2-1.3) mg/dL AST (14-36) U/L ALT (4-34) U/L Alkaline Phosphatase (38-126) U/L Troponin I <0.012 (0.000-0.034) ng/mL Total Protein (6.3-8.2) g/dL Albumin (3.5-5.0) g/dL Lipase (23-300) U/L Coronavirus (PCR) Detected A (Not Detectd) Disposition Clinical Impression: COVID-19, Bronchitis, Chronic renal failure, Hypoxemia, Costochondritis, Chest wall syndrome, Febrile illness, acute, Episode of hypertension Disposition: ADMITTED IP TO THIS [facility] Condition: Fair Referrals: Roque Buckner MD [Primary Care Provider] - 1-2 days
[2022-04-25] MEDS ORDERED: hydrOXYzine HCL 25 MG TAB PO PRN (00:06)
[2022-04-25 00:28] LABS: Glucose,Whole Blood 41 mg/dL (70-110)
[2022-04-25 00:49] LABS: Glucose,Whole Blood 109 mg/dL (70-110)
[2022-04-25 06:38] LABS: Glucose,Whole Blood 142 mg/dL (70-110)
[2022-04-25] MEDS: MORPHINE SULFATE 4 MG/ML SYRINGE IV PRN ×3 (06:40→21:18)
[2022-04-25] MEDS: carvediloL 12.5 MG TAB PO SCH ×2 (06:41→17:15)
[2022-04-25] MEDS: INSULIN ASPART (NovoLOG) 100 UNIT/ML VIAL SQ SCH ×3 (07:24→17:15)
[2022-04-25] MEDS: ALBUTEROL HFA INHALER INHALATION PRN ×3 (07:50→20:26)
[2022-04-25] MEDS: DULoxetine HCL 30 MG CAPSULE.DR PO SCH ×2 (08:24→21:19)
[2022-04-25] MEDS: buPROPion SR 150 MG TABLET.ER PO SCH ×2 (08:24→21:19)
[2022-04-25] MEDS: TORSEMIDE 20 MG TAB PO SCH (08:24)
[2022-04-25] MEDS: ASPIRIN 81 MG PO SCH (08:24)
[2022-04-25] MEDS: LORazepam 1 MG TAB PO PRN ×2 (09:56→21:18)
[2022-04-25] MEDS: cloNIDine HCL 0.1 MG TAB PO SCH ×3 (09:58→21:29)
[2022-04-25] MEDS ORDERED: diphenhydrAMINE 50 MG/ML 1 ML VIAL IVP ONE ×2 (11:00→14:00)
[2022-04-25 11:45] LABS: Glucose,Whole Blood 101 mg/dL (70-110)
[2022-04-25] MEDS: ACETAMINOPHEN TAB 325 MG TAB PO PRN (12:08)
--- NOTE | 2022-04-25 12:37 | P.NPCON ---
History of Present Illness - Reason for Consult end stage renal disease - History of Present Illness Patient is a 31-year-old female with end-stage renal disease on hemodialysis on a Monday schedule. She was just discharged from the hospital 4-5 days ago days ago. Patient is admitted again with complaints of increased shortness of breath and increased weakness. She tested positive for COVID-19 PCR. Blood pressure was significantly elevated at 241/112 on initial admission. Patient is scheduled for hemodialysis today. She denied any significant nausea vomiting or diarrhea or abdominal pain. No fever noted Review of Systems Assessment HPI Past Medical History Past Medical History: CVA/TIA, Diabetes Mellitus, Dialysis, Eye Disorder, Hypertension, Renal Disease Additional Past Medical History / Comment(s): ESRD with hemodialysis M/W/F, IDDM type 1, DKA, neuropathy bilateral legs/feet, diabetic retinopathy/legally blind, RLS, gastritis, severe hypokalemia, fluid retention in abdomin/legs. History of Any Multi-Drug Resistant Organisms: None Reported Past Surgical History: Appendectomy, Section, Cholecystectomy Additional Past Surgical History / Comment(s): fistula left arm Past Anesthesia/Blood Transfusion Reactions: No Reported Reaction Past Psychological History: Anxiety, Depression Additional Psychological History / Comment(s): Pt resides with her father and pt's 3 children. Pt gets to dialysis by grandparents/family or cab. Smoking Status: Never smoker Past Alcohol Use History: None Reported Past Drug Use History: None Reported - Past Family History Mother Family Medical History: Cancer, Hypertension Additional Family Medical History / Comment(s): Thyroid cancer, bipolar Father Family Medical History: Seizure Disorder Additional Family Medical History / Comment(s): Epilepsy Medications and Allergies Home Medications Medication Instructions Recorded Confirmed Type Ergocalciferol (Vitamin D2) 1,250 mcg PO Q30D 04/03/21 04/25/22 History [Drisdol (50,000 Iu)] carvediloL [Coreg] 25 mg PO BID 04/03/21 04/25/22 History Acetaminophen Tab [Tylenol] 650 mg PO Q6HR PRN #30 tab 04/09/21 04/25/22 Rx Escitalopram [Lexapro] 20 mg PO DAILY 04/17/21 04/25/22 History Glucagon Emergency Kit 1 mg IM ONCE PRN #1 kit 06/15/21 04/25/22 Rx Cyanocobalamin [Vitamin B-12] 1,000 mcg PO DAILY #60 tab 09/06/21 04/25/22 Rx Atorvastatin [Lipitor] 40 mg PO DAILY 30 Days #30 tab 10/13/21 04/25/22 Rx Calcium Acetate [PhosLo] 667 mg PO TID-W/MEALS 30 Days #90 10/13/21 04/25/22 Rx tab Pantoprazole Sodium [Protonix] 20 mg PO BID #30 tab 10/15/21 04/25/22 Rx Albuterol Inhaler [Ventolin Hfa 2 puff INHALATION RT-QID PRN 12/06/21 04/25/22 H istory Inhaler] Aspirin 81 mg PO DAILY 12/06/21 04/25/22 History Methoxy Peg-Epoetin Beta [Mircera] 200 mcg IVPB Q14D 12/06/21 04/25/22 History NIFEdipine XL [Procardia XL] 60 mg PO BID 12/06/21 04/25/22 History LORazepam [Ativan] 1 mg PO TID PRN #90 tab 12/09/21 04/25/22 Rx hydrOXYzine HCL [Atarax] 25 mg PO TID PRN #90 tab 12/09/21 04/25/22 Rx Melatonin [Melatonin Dissolving 10 mg PO HS 12/21/21 04/25/22 History Tablet] Lidocaine-Prilocaine Cream [Emla 1 applic TOPICAL MOWEFR PRN 02/09/22 04/25/22 History Cream 2.5%/2.5%] buPROPion SR [Wellbutrin SR] 150 mg PO BID 02/09/22 04/25/22 History Darbepoetin Tate [Aranesp] 40 mcg SQ Q7D each 04/08/22 04/25/22 Rx DULoxetine HCL [Cymbalta] 30 mg PO BID 30 Days #60 cap 04/19/22 04/25/22 Rx INSULIN ASPART (NovoLOG) [NovoLOG 6 unit SQ TID-W/MEALS #90 each 04/19/22 04/25/22 Rx (formulary)] Insulin Detemir (Levemir) [Levemir] 12 unit SQ HS #30 each 04/19/22 04/25/22 Rx Mirtazapine [Remeron] 45 mg PO HS 30 Days #30 tab 04/19/22 04/25/22 Rx Torsemide [Demadex] 40 mg PO DAILY #10 tab 04/19/22 04/25/22 Rx cloNIDine HCL [Catapres] 0.3 mg PO TID 90 Days #90 tab 04/19/22 04/25/22 Rx rOPINIRole HCL [Requip] 2 mg PO BID 30 Days #60 tab 04/19/22 04/25/22 Rx traZODone HCL [Desyrel] 50 mg PO HS PRN #30 tab 04/19/22 04/25/22 Rx Allergies Allergy/AdvReac Type Severity Reaction Status Date / Time Fish Containing Products Allergy Rash/Hives Verified 04/25/22 07:45 [Fish] iodine Allergy Anaphylaxis Verified 04/25/22 07:45 Physical Exam Vitals: Vital Signs Temp Pulse Pulse Resp BP BP Pulse Ox 04/25/22 07:43 98.9 F 78 16 182/95 99 04/25/22 02:00 98.8 F 75 14 133/72 97 04/25/22 00:39 81 20 98/63 97 04/25/22 00:36 16 04/25/22 00:13 83 24 162/88 100 04/24/22 23:03 85 24 213/106 95 04/24/22 22:41 86 198/109 04/24/22 22:06 86 28 H 209/106 04/24/22 21:36 86 215/117 04/24/22 21:11 86 239/125 04/24/22 20:11 99 04/24/22 20:08 99 F 86 20 241/112 85 L Intake and Output 04/24/22 04/25/22 04/25/22 22:59 06:59 14:59 Other: # Voids 1 Weight 47.627 kg 47.627 kg 47.627 kg Patient is awake, comfortable, no acute distress Examination of the heart S1 and S2 Examination of the lungs bilateral breath sounds are heard Abdomen is soft nontender Examination lower extremity shows no evidence of edema Face appears puffy 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 End-stage renal disease on hemodialysis on a Monday schedule 2. Volume overload 3. COVID-19 PCR positive 4. CK D mineral bone disorder 5. Uncontrolled hypertension partly related to volume overload Plan: Hemodialysis today Possible repeat dialysis tomorrow depending on volume status and blood pressure Resume home blood pressure medications
[2022-04-25 16:29] LABS: Glucose,Whole Blood 206 mg/dL (70-110)
[2022-04-25] MEDS: LOSARTAN 50 MG TAB PO SCH (16:43)
[2022-04-25] MEDS: hydrALAZINE HCL 50 MG TAB PO SCH ×2 (16:43→21:17)
[2022-04-25 20:42] LABS: Glucose,Whole Blood 261 mg/dL (70-110)
[2022-04-25] MEDS: INSULIN DETEMIR (LEVEMIR) 100 UNIT/ML SYR SQ SCH (21:18)
[2022-04-25] MEDS: traZODone HCL 50 MG TAB PO PRN (23:42)
--- NOTE | 2022-04-26 01:00 | HP ---
HISTORY AND PHYSICAL CHIEF COMPLAINT: Renal failure and COVID. HISTORY OF PRESENT ILLNESS: This lady was just discharged again several days ago and now she comes back in with a cough and tested positive for COVID. She also has uncontrolled type 1 insulin-dependent diabetes mellitus and uncontrolled hypertension. She has not been taking medications at home she was supposed to be discharged on. She denies any chills, sputum production, nausea, vomiting, diarrhea, etc. Past medical history, family history, personal and social histories are all otherwise unremarkable and unchanged from her discharge a few days ago. PHYSICAL EXAMINATION: VITAL SIGNS: Blood pressure is 182/102 with respirations 35 and she is afebrile. Pulse is 100. GENERAL: She remains pale and chronically ill in appearance. HEAD, EARS, EYES, NOSE, MOUTH, THROAT: Normal. CHEST: Clear. There are no rhonchi or rales. CARDIAC: Demonstrated sinus tachycardia. ABDOMEN: Soft. There are no masses. EXTREMITIES: Normal. NEUROLOGICAL: She is intact. DIAGNOSES: She is admitted to the hospital with diagnoses of: 1. COVID-related bronchitis. 2. Chronic renal failure. 3. Uncontrolled hypertension. 4. Uncontrolled type 1 diabetes mellitus. 5. Amblyopia. PLAN: 1. Bedrest. 2. IV fluids. 3. Supportive care. 4. Consult Renal. MMODL / IJN: [id number] /
[2022-04-26] MEDS: MORPHINE SULFATE 4 MG/ML SYRINGE IV PRN ×3 (01:38→13:38)
[2022-04-26 02:20] LABS: Glucose,Whole Blood 270 mg/dL (70-110)
[2022-04-26] MEDS: ACETAMINOPHEN TAB 325 MG TAB PO PRN (05:06)
[2022-04-26 06:32] LABS: Glucose,Whole Blood 94 mg/dL (70-110)
[2022-04-26] MEDS: INSULIN ASPART (NovoLOG) 100 UNIT/ML VIAL SQ SCH ×4 (06:38→18:40)
[2022-04-26] MEDS: ALBUTEROL HFA INHALER INHALATION PRN ×3 (07:31→17:06)
[2022-04-26] MEDS: ASPIRIN 81 MG PO SCH (08:28)
[2022-04-26] MEDS: cloNIDine HCL 0.1 MG TAB PO SCH ×3 (08:28→22:00)
[2022-04-26] MEDS: carvediloL 12.5 MG TAB PO SCH ×2 (08:28→14:05)
[2022-04-26] MEDS: hydrALAZINE HCL 50 MG TAB PO SCH ×3 (08:29→23:11)
[2022-04-26] MEDS: LOSARTAN 50 MG TAB PO SCH (08:29)
[2022-04-26] MEDS: DULoxetine HCL 30 MG CAPSULE.DR PO SCH ×2 (08:29→21:53)
[2022-04-26] MEDS: buPROPion SR 150 MG TABLET.ER PO SCH ×2 (08:30→21:52)
[2022-04-26] MEDS: TORSEMIDE 20 MG TAB PO SCH (08:30)
[2022-04-26 09:32] LABS: Glucose,Whole Blood 68 mg/dL (70-110)
[2022-04-26 11:40] LABS: Glucose,Whole Blood 66 mg/dL (70-110)
--- NOTE | 2022-04-26 11:59 | P.PN ---
Subjective Patient is seen for follow-up for end-stage renal disease. She was admitted to the hospital with shortness of breath and increased weakness. Patient tested positive for "with 19 PCR. She was also volume overloaded and is status post hemodialysis yesterday with UF of 4.5 L. Feeling much better today. Objective - Vital Signs Vital signs: Vital Signs Temp 98.5 F 04/26/22 07:52 Pulse 68 04/26/22 07:52 Resp 18 04/26/22 07:52 BP 104/61 04/26/22 07:52 Pulse Ox 98 04/26/22 07:52 FiO2 Intake & Output 04/25/22 04/26/22 04/26/22 18:59 06:59 18:59 Intake Total 1120 Output Total 4500 Balance -3380 Weight 47.627 kg Intake: Oral 820 Hemodialysis 300 Output: Hemodialysis 4500 Other: Voiding Method Toilet # Voids 1 - Exam Awake, comfortable, no acute distress [employer]GER exam grossly intact No edema noted in the lower extremities. - Labs CBC & Chem 7: 04/24/22 20:51 04/24/22 20:51 Labs: Abnormal Lab Results - Last 24 Hours (Table) 04/25/22 04/25/22 04/26/22 Range/Units 16:28 20:41 02:18 POC Glucose (mg/dL) 206 H 261 H 270 H (70-110) mg/dL 04/26/22 04/26/22 Range/Units 09:27 11:29 POC Glucose (mg/dL) 68 L 66 L (70-110) mg/dL Microbiology - Last 24 Hours (Table) 04/24/22 20:51 Blood Culture - Preliminary Blood No Growth after 24 hours Assessment and Plan Assessment: 1. End-stage renal disease on hemodialysis on a Monday schedule 2. Volume overload 3. COVID-19 PCR positive 4. CK D mineral bone disorder 5. Uncontrolled hypertension partly related to volume overload Plan: Hemodialysis in a.m. Continue current antihypertensive medications.
[2022-04-26] MEDS: LORazepam 1 MG TAB PO PRN ×2 (13:38→14:06)
[2022-04-26 14:03] LABS: Glucose,Whole Blood 249 mg/dL (70-110)
[2022-04-26] MEDS: NALOXONE 0.4 MG/ML 1 ML VIAL IV PRN ×2 (15:50→17:24)
[2022-04-26 16:25] LABS: Glucose,Whole Blood 474 mg/dL (70-110)
[2022-04-26] MEDS ORDERED: EPINEPHrine 10 ML SYRINGE (0.1 MG/ML) ONE (17:25)
[2022-04-26] MEDS ORDERED: CALCIUM CHLORIDE 100 MG/ML 10 ML SYRINGE ONE (17:25)
[2022-04-26] MEDS ORDERED: SODIUM BICARB 8.4% 50 ML SYR (1 MEQ/ML) ONE (17:25)
[2022-04-26 17:37] LABS: Glucose,Whole Blood >600 mg/dL (70-110)
[2022-04-26] MEDS ORDERED: propofoL 100 ML IV ONE ×2 (17:42→17:52)
[2022-04-26] MEDS ORDERED: NOREPINEPHRIN 4 MG-0.9% NS PMX 0 MG/0 ML ML IV ONE (17:43)
[2022-04-26] MEDS ORDERED: NOREPINEPHRINE 4 MG in SODIUM CHLORIDE 0.9% 250 ML IV SCH (17:45)
[2022-04-26 18:00] LABS: Anisocytosis Slight; Basophils # (A) 0.2 k/uL (0-0.2); Basophils % (A) 1 %; Eosinophils # (A) 0.3 k/uL (0-0.7); Eosinophils % (A) 2 %; HCT 24.7 % (34.0-46.0); HGB 7.8 gm/dL (11.4-16.0); Hypochromasia Marked; Lymphocytes # (A) 2.7 k/uL (1.0-4.8); Lymphocytes % (A) 16 %; MCHC 31.8 g/dL (31.0-37.0); Macrocytosis Slight; Mean Platelet Volume 10.1; Monocytes # (A) 0.6 k/uL (0-1.0); Monocytes % (A) 3 %; Neutrophils # (A) 12.9 k/uL (1.3-7.7); Neutrophils % (A) 76 %; Platelet Count 325 k/uL (150-450); RBC 2.45 m/uL (3.80-5.40); RDW 16.7 % (11.5-15.5); WBC 17.1 k/uL (3.8-10.6)
[2022-04-26 18:00] LABS: Glucose,Whole Blood 570 mg/dL (70-110)
[2022-04-26 18:10] LABS: ALT 352 U/L (4-34); AST 291 U/L (14-36); African American GFR (CKD) 10 (>60 ml/min/1.73 sqM); Albumin 3.5 g/dL (3.5-5.0); Albumin/Globulin Ratio 1.7; Alkaline Phosphatase 473 U/L (38-126); Anion Gap 13 mmol/L; Blood Urea Nitrogen 63 mg/dL (7-17); Calcium 10.3 mg/dL (8.4-10.2); Carbon Dioxide 29 mmol/L (22-30); Chloride 89 mmol/L (98-107); Globulin 2.1 g/dL; Non-African American GFR(CKD) 9 (>60 ml/min/1.73 sqM); Sodium 131 mmol/L (137-145); Total Bilirubin 0.7 mg/dL (0.2-1.3); Total Protein 5.6 g/dL (6.3-8.2)
--- NOTE | 2022-04-26 18:10 | P.EN ---
CODE BLUE note Pelon called overhead. Patient already being resuscitated on arrival. Per report, patient was in asystole prior to cardiac arrest. A total of 4 epi given. 2 bicarb, 1 calcium given. Difficult intubation due to emesis, but patient hemodynamically stable after intubation. Patient being transferred to the ICU. Brief chart review, patient has ESRD on hemodialysis. On recent blood work showed hyperkalemia, and hypocalcemia. Patient is also on morphine, did get Narcan prior to becoming pulseless, unsure about response.
[2022-04-26 18:14] LABS: MCV 100.6 fL (80.0-100.0)
[2022-04-26 18:18] LABS: Glucose 562 mg/dL (74-99); Potassium 8.9 mmol/L (3.5-5.1)
[2022-04-26] MEDS ORDERED: CALCIUM GLUCONATE IN NACL 1 GM in SALINE 1 100ML.BAG IVPB ONE (18:28)
[2022-04-26] MEDS ORDERED: INSULIN REGULAR 100 UNIT/ML VIAL (IV) IV ONE (18:29)
--- NOTE | 2022-04-26 18:34 | XR ---
EXAMINATION TYPE: XR chest 1V portable DATE OF EXAM: 04/26/2022 6:15 PM COMPARISON: Chest radiographs from 04/24/2022. TECHNIQUE: XR chest 1V portable Portable AP radiograph of the chest. CLINICAL INDICATION:Female, 31 years old with history of code; FINDINGS: Lungs/Pleura: Increasing right basilar airspace opacities. There is no evidence of pleural effusion, or pneumothorax. Pulmonary vascularity: Unremarkable. Heart/mediastinum: Cardiomediastinal silhouette is enlarged and stable. Musculoskeletal: No acute osseous pathology. Lines/Tubes: Endotracheal tube with distal tip 1.7 cm above the walter Nasogastric tube with its distal tip and side-port projecting under the diaphragm. IMPRESSION: 1. Right basilar airspace opacities more prominent on today's exam correlate for pneumonia. 2. Support tubes in appropriate position.
[2022-04-26 18:40] LABS: ABG Base Excess -5.5 mmol/L; ABG HCO3 22 mmol/L (21-25); ABG Oxygen Saturation 83.5 % (94-97); ABG PCO2 56 mmHg (35-45); ABG PH 7.21 (7.35-7.45); ABG PO2 56 mmHg (83-108); ABG TCO2 24 mmol/L (19-24); Allen Test Performed? Yes
[2022-04-26] MEDS: MIDAZOLAM HCL 50 MG in SODIUM CHLORIDE 0.9% 40 ML IV SCH (19:28)
[2022-04-26] MEDS: SODIUM CHLORIDE 0.9% 1,000 ML IV SCH (19:40)
[2022-04-26 20:00] LABS: Glucose,Whole Blood 480 mg/dL (70-110)
[2022-04-26 21:25] LABS: Glucose,Whole Blood 435 mg/dL (70-110)
[2022-04-26] MEDS: INSULIN REGULAR 100 UNIT in SODIUM CHLORIDE 0.9% 100 ML IV SCH (21:37)
[2022-04-26] MEDS: PANTOPRAZOLE 40 MG/10 ML VIAL IVP SCH (22:00)
[2022-04-26] MEDS: PIPERACILLIN-TAZOBACTAM 3.375 GM in SODIUM CHLORIDE 0.9% 100 ML IVPB SCH (22:00)
[2022-04-26] MEDS: CHLORHEXIDINE GLUCONATE 15 ML CUP MUCOUS MEM SCH (22:00)
[2022-04-26] MEDS: ENOXAPARIN 30 MG/0.3 ML SYRINGE SQ SCH (22:01)
[2022-04-26 22:24] LABS: Glucose,Whole Blood 250 mg/dL (70-110)
[2022-04-26 23:25] LABS: Glucose,Whole Blood 189 mg/dL (70-110)
[2022-04-27 00:19] LABS: Calcium 8.7 mg/dL (8.4-10.2); Magnesium 1.8 mg/dL (1.6-2.3); Potassium 3.5 mmol/L (3.5-5.1)
[2022-04-27] MEDS: MIDAZOLAM HCL 50 MG in SODIUM CHLORIDE 0.9% 40 ML IV SCH ×2 (00:32→05:30)
[2022-04-27] MEDS: MORPHINE SULFATE 4 MG/ML SYRINGE IV PRN (00:34)
[2022-04-27 00:39] LABS: Glucose,Whole Blood 99 mg/dL (70-110)
[2022-04-27 02:12] LABS: Glucose,Whole Blood 197 mg/dL (70-110)
--- NOTE | 2022-04-27 02:28 | PN ---
PROGRESS NOTE DATE OF SERVICE: 04/26/2022 CHIEF COMPLAINT: Uncontrolled diabetes, hypertension, renal failure. HISTORY OF PRESENT ILLNESS: This lady is doing fairly well. She has not had any chest pain. Her blood pressures and blood sugars are starting to come down. She was last dialyzed on Monday. PHYSICAL EXAMINATION: GENERAL: She is awake and alert. CHEST: Clear. CARDIAC: Normal. ABDOMEN: Soft, nontender. IMPRESSION: 1. Uncontrolled hypertension. 2. Uncontrolled type 1 diabetes mellitus. 3. Stage 5 renal failure. PLAN: No change in current program and reorder her Benadryl. MMODL / IJN: [id number] /
[2022-04-27 03:23] LABS: Glucose,Whole Blood 309 mg/dL (70-110)
[2022-04-27 04:49] LABS: Glucose,Whole Blood 250 mg/dL (70-110)
[2022-04-27 05:57] LABS: Glucose,Whole Blood 206 mg/dL (70-110)
[2022-04-27 06:09] LABS: ABG HCO3 24 mmol/L (21-25); ABG Oxygen Saturation 99.8 % (94-97); ABG PCO2 41 mmHg (35-45); ABG PH 7.38 (7.35-7.45); ABG PO2 143 mmHg (83-108); ABG TCO2 25 mmol/L (19-24); Allen Test Performed? Yes
[2022-04-27 06:23] LABS: Anisocytosis Slight; Basophils % (A) 0 %; Eosinophils % (A) 1 %; Hypochromasia Slight; Lymphocytes # (A) 0.3 k/uL (1.0-4.8); Lymphocytes % (A) 9 %; MCH 31.5 pg (25.0-35.0); MCHC 32.9 g/dL (31.0-37.0); MCV 95.9 fL (80.0-100.0); Mean Platelet Volume 11.3; Monocytes # (A) 0.2 k/uL (0-1.0); Monocytes % (A) 6 %; Neutrophils % (A) 82 %; RBC 2.02 m/uL (3.80-5.40); RDW 17.1 % (11.5-15.5); WBC 3.7 k/uL (3.8-10.6)
[2022-04-27 06:36] LABS: Potassium 4.6 mmol/L (3.5-5.1)
[2022-04-27 06:38] LABS: Magnesium 1.6 mg/dL (1.6-2.3)
[2022-04-27 06:45] LABS: HCT 19.4 % (34.0-46.0); HGB 6.4 gm/dL (11.4-16.0); Platelet Count 120 k/uL (150-450)
[2022-04-27] MEDS: carvediloL 12.5 MG TAB PO SCH ×2 (06:49→16:04)
[2022-04-27 07:01] LABS: Glucose,Whole Blood 159 mg/dL (70-110)
--- NOTE | 2022-04-27 07:22 | XR ---
EXAMINATION TYPE: XR chest 1V portable DATE OF EXAM: 04/27/2022 CLINICAL HISTORY: Difficulty breathing progress study. TECHNIQUE: Single AP portable semiupright view of the chest is obtained. COMPARISON: Chest x-ray from one day earlier and older studies. FINDINGS: Stable endotracheal and orogastric tubes. Persistent low lung volumes and cardiomegaly. Worsening bilateral opacities. Osseous structures are i ntact. IMPRESSION: Worsening bilateral infiltrates and/or edema.
[2022-04-27] MEDS: ALBUTEROL HFA INHALER INHALATION PRN ×2 (07:52→15:14)
[2022-04-27 07:59] LABS: Glucose,Whole Blood 105 mg/dL (70-110)
[2022-04-27] MEDS: NOREPINEPHRINE 4 MG in SODIUM CHLORIDE 0.9% 250 ML IV SCH ×2 (08:14→14:44)
[2022-04-27] MEDS: PIPERACILLIN-TAZOBACTAM 3.375 GM in SODIUM CHLORIDE 0.9% 100 ML IVPB SCH ×2 (08:15→20:38)
[2022-04-27] MEDS: ASPIRIN 81 MG PO SCH (08:16)
[2022-04-27] MEDS ORDERED: MIDAZOLAM HCL 200 MG in SODIUM CHLORIDE 0.9% 60 ML IV SCH (09:00)
[2022-04-27 09:09] LABS: Glucose,Whole Blood 106 mg/dL (70-110)
[2022-04-27] MEDS: cloNIDine HCL 0.1 MG TAB PO SCH ×3 (09:25→20:31)
[2022-04-27] MEDS: LOSARTAN 50 MG TAB PO SCH (09:26)
[2022-04-27] MEDS: hydrALAZINE HCL 50 MG TAB PO SCH ×3 (09:26→20:31)
[2022-04-27] MEDS: CHLORHEXIDINE GLUCONATE 15 ML CUP MUCOUS MEM SCH (09:27)
[2022-04-27] MEDS: PANTOPRAZOLE 40 MG/10 ML VIAL IVP SCH (09:27)
[2022-04-27] MEDS: DULoxetine HCL 30 MG CAPSULE.DR PO SCH ×2 (09:33→20:31)
[2022-04-27] MEDS: buPROPion SR 150 MG TABLET.ER PO SCH ×2 (09:33→20:30)
[2022-04-27] MEDS: ENOXAPARIN 30 MG/0.3 ML SYRINGE SQ SCH (09:33)
[2022-04-27] MEDS: TORSEMIDE 20 MG TAB PO SCH (09:34)
[2022-04-27 09:57] LABS: Glucose,Whole Blood 140 mg/dL (70-110)
[2022-04-27] MEDS: INSULIN DETEMIR (LEVEMIR) 100 UNIT/ML SYR SQ SCH (10:18)
[2022-04-27 11:05] LABS: Glucose,Whole Blood 137 mg/dL (70-110)
--- NOTE | 2022-04-27 11:39 | P.CNPUL ---
History of Present Illness Consult date: 04/27/22 Requesting physician: Roque Buckner Reason for consult: other (Cardiac arrest) Chief complaint: Cough, shortness of breath, and chest pain. History of present illness: This is a 31-year-old female with history of chronic kidney disease/renal failure on hemodialysis. History of previous CVA and previous cardiac arrest, patient presented to the ER on 04/24/22 presented mostly with 1 week history of cough, shortness of breath, and chest pain upon coughing. Pain was described by the ER physician as sharp, no radiation, pain was not associated with diaphoresis, no nausea no vomiting no abdominal pain. Patient had her last hemodialysis 2 days prior. Chest x-ray upon her initial evaluation showed evidence of pulmonary vascular congestion consistent with pulmonary edema/fluid overload, patient tested positive for COVID-19 infection, patient had low pulse oximetry on her initial presentation 85% on room air, and went up to 93% on 2 L. Patient was admitted, and she was seen by nephrology on consultation on 04/25 and she was also seen by her admitting physician on 04/26. On 04/26, at around 1800 p.m., CARLA EDWARD was called overhead. Sound physician responded to the code, patient was being resuscitated upon his arrival. Patient was in asystole and she received a total of 4 epinephrines, 2 bicarb, 1 calcium given patient was intubated however she was noted to have emesis during intubation, and she may have had visible aspiration. Cold lasted about 7 minutes, patient was sent to the ICU on mechanical ventilation. Her potassium was above 8, nephrology was notified, and the patient received treatment for heart high potassium and she received immediate hemodialysis while in the ICU. I was notified about this patient shortly after she arrived to the ICU, and I recommended ventilatory support, adjusted her ventilator settings she initially required high FiO2 and high PEEP. She required more sedation utilizing propofol and Versed because she was still agitated and restless with propofol alone at maximal dose. Recommended Zosyn empirically for presumptive aspiration pneumonia recommended GI and DVT prophylaxis, immediate hemodialysis by nephrology, and reviewed her ABG, and her vent settings were adjusted accordingly. Patient is now in the ICU on mechanical ventilation, she is on assist control rate of 28th of volume 400 FiO2 40% and PEEP of 12. ABG showed a pO2 of 143 pCO2 41 pH of 7.38. And I recommended cutting down the PEEP down to 5, and kept her on 40% FiO2. Patient will be receiving more hemodialysis today. Hemoglobin is down to 6.4 and she'll be receiving 1 unit of packed RBCs. She will also receive hemodialysis again today. She had a temp of 103, cultures are pending and I'm recommending Zosyn for now for presumptive aspiration pneumonia. Patient is on Versed at 7 mg per hour, propofol at 75 mcg/kg/m, her IV fluids at KVO, she is also on insulin drip. This morning labs showed hemoglobin of 6.4. Normal electrolytes, bicarb is normal, BUN is 32 creatinine 3.47. As mentioned earlier patient had positive PCR for COVID-19 infection Review of Systems ROS unobtainable: due to endotracheal tube Past Medical History Past Medical History: CVA/TIA, Diabetes Mellitus, Dialysis, Eye Disorder, Hypertension, Renal Disease Additional Past Medical History / Comment(s): ESRD with hemodialysis M/W/F, IDDM type 1, DKA, neuropathy bilateral legs/feet, diabetic retinopathy/legally blind, RLS, gastritis, severe hypokalemia, fluid retention in abdomin/legs. History of Any Multi-Drug Resistant Organisms: None Reported Past Surgical History: Appendectomy, Section, Cholecystectomy Additional Past Surgical History / Comment(s): fistula left arm Past Anesthesia/Blood Transfusion Reactions: No Reported Reaction Past Psychological History: Anxiety, Depression Additional Psychological History / Comment(s): Pt resides with her father and pt's 3 children. Pt gets to dialysis by grandparents/family or cab. Smoking Status: Never smoker Past Alcohol Use History: None Reported Past Drug Use History: None Reported - Past Family History Mother Family Medical History: Cancer, Hypertension Additional Family Medical History / Comment(s): Thyroid cancer, bipolar Father Family Medical History: Seizure Disorder Additional Family Medical History / Comment(s): Epilepsy Medications and Allergies Home Medications Medication Instructions Recorded Confirmed Type Ergocalciferol (Vitamin D2) 1,250 mcg PO Q30D 04/03/21 04/25/22 History [Drisdol (50,000 Iu)] carvediloL [Coreg] 25 mg PO BID 04/03/21 04/25/22 History Acetaminophen Tab [Tylenol] 650 mg PO Q6HR PRN #30 tab 04/09/21 04/25/22 Rx Escitalopram [Lexapro] 20 mg PO DAILY 04/17/21 04/25/22 History Glucagon Emergency Kit 1 mg IM ONCE PRN #1 kit 06/15/21 04/25/22 Rx Cyanocobalamin [Vitamin B-12] 1,000 mcg PO DAILY #60 tab 09/06/21 04/25/22 Rx Atorvastatin [Lipitor] 40 mg PO DAILY 30 Days #30 tab 10/13/21 04/25/22 Rx Calcium Acetate [PhosLo] 667 mg PO TID-W/MEALS 30 Days #90 10/13/21 04/25/22 Rx tab Pantoprazole Sodium [Protonix] 20 mg PO BID #30 tab 10/15/21 04/25/22 Rx Albuterol Inhaler [Ventolin Hfa 2 puff INHALATION RT-QID PRN 12/06/21 04/25/22 History Inhaler] Aspirin 81 mg PO DAILY 12/06/21 04/25/22 History Methoxy Peg-Epoetin Beta [Mircera] 200 mcg IVPB Q14D 12/06/21 04/25/22 History NIFEdipine XL [Procardia XL] 60 mg PO BID 12/06/21 04/25/22 History LORazepam [Ativan] 1 mg PO TID PRN #90 tab 12/09/21 04/25/22 Rx hydrOXYzine HCL [Atarax] 25 mg PO TID PRN #90 tab 12/09/21 04/25/22 Rx Melatonin [Melatonin Dissolving 10 mg PO HS 12/21/21 04/25/22 History Tablet] Lidocaine-Prilocaine Cream [Emla 1 applic TOPICAL MOWEFR PRN 02/09/22 04/25/22 History Cream 2.5%/2.5%] buPROPion SR [Wellbutrin SR] 150 mg PO BID 02/09/22 04/25/22 History Darbepoetin Tate [Aranesp] 40 mcg SQ Q7D each 04/08/22 04/25/22 Rx DULoxetine HCL [Cymbalta] 30 mg PO BID 30 Days #60 cap 04/19/22 04/25/22 Rx INSULIN ASPART (NovoLOG) [NovoLOG 6 unit SQ TID-W/MEALS #90 each 04/19/22 04/25/22 Rx (formulary)] Insulin Detemir (Levemir) [Levemir] 12 unit SQ HS #30 each 04/19/22 04/25/22 Rx Mirtazapine [Remeron] 45 mg PO HS 30 Days #30 tab 04/19/22 04/25/22 Rx Torsemide [Demadex] 40 mg PO DAILY #10 tab 04/19/22 04/25/22 Rx cloNIDine HCL [Catapres] 0.3 mg PO TID 90 Days #90 tab 04/19/22 04/25/22 Rx rOPINIRole HCL [Requip] 2 mg PO BID 30 Days #60 tab 04/19/22 04/25/22 Rx traZODone HCL [Desyrel] 50 mg PO HS PRN #30 tab 04/19/22 04/25/22 Rx Allergies Allergy/AdvReac Type Severity Reaction Status Date / Time Fish Containing Products Allergy Rash/Hives Verified 04/25/22 07:45 [Fish] iodine Allergy Anaphylaxis Verified 04/25/22 07:45 Physical Exam Vitals: Vital Signs Temp Pulse Pulse Resp BP BP Pulse Ox 04/27/22 10:59 04/27/22 10:42 98.6 F 80 28 H 106/55 04/27/22 10:22 98.4 F 81 28 H 90/48 04/27/22 10:15 87 28 H 110/56 96 04/27/22 10:12 99.6 F 87 28 H 110/56 96 04/27/22 10:00 93 28 H 156/75 97 04/27/22 09:45 94 28 H 156/75 97 04/27/22 09:30 94 28 H 156/75 98 04/27/22 09:15 92 28 H 156/75 94 L 04/27/22 09:00 92 28 H 151/79 98 04/27/22 08:45 91 28 H 151/79 100 04/27/22 08:30 91 28 H 151/79 100 04/27/22 08:15 92 28 H 151/79 100 04/27/22 08:00 99.2 F 92 28 H 141/69 100 04/27/22 07:48 04/27/22 07:45 92 28 H 141/69 99 04/27/22 07:30 92 28 H 141/69 99 04/27/22 07:15 93 28 H 141/69 100 04/27/22 07:00 94 28 H 141/69 99 04/27/22 06:45 95 28 H 99 04/27/22 06:30 96 28 H 99 04/27/22 06:18 04/27/22 06:15 98 28 H 157/74 100 04/27/22 06:00 98 28 H 146/81 100 04/27/22 05:45 98.8 F 98 28 H 100 04/27/22 05:30 98 28 H 155/86 99 04/27/22 05:15 100 28 H 134/108 99 04/27/22 05:00 101 H 28 H 142/74 99 04/27/22 04:45 101 H 28 H 98 04/27/22 04:30 101 H 28 H 143/76 98 04/27/22 04:15 101 H 28 H 149/73 98 04/27/22 04:00 103.1 F H 101 H 28 H 148/75 98 04/27/22 03:45 101 H 28 H 148/77 98 04/27/22 03:30 101 H 28 H 154/83 98 04/27/22 03:23 04/27/22 03:15 101 H 28 H 154/77 100 04/27/22 03:00 101 H 28 H 155/81 100 04/27/22 02:45 101 H 28 H 157/82 100 04/27/22 02:30 100 28 H 158/82 100 04/27/22 02:15 100 28 H 159/88 100 04/27/22 02:00 99 28 H 160/85 100 04/27/22 01:45 99 28 H 144/90 100 04/27/22 01:37 04/27/22 01:30 97 28 H 156/133 100 04/27/22 01:15 98 28 H 181/103 100 04/27/22 01:00 98 28 H 180/95 100 04/27/22 00:54 97.2 F L 74 28 H 131/77 04/27/22 00:45 98 28 H 182/102 100 04/27/22 00:30 97 28 H 184/104 100 04/27/22 00:15 96 28 H 177/100 100 04/27/22 00:00 99.9 F H 96 28 H 156/91 100 04/26/22 23:45 91 28 H 159/89 100 04/26/22 23:43 04/26/22 23:30 91 28 H 160/88 100 04/26/22 23:28 04/26/22 23:15 93 28 H 158/86 99 04/26/22 23:14 93 28 H 98 04/26/22 23:00 92 37 H 156/113 98 04/26/22 22:45 90 38 H 150/82 97 04/26/22 22:30 88 30 H 144/84 97 04/26/22 22:15 84 28 H 128/78 100 04/26/22 22:00 80 28 H 126/74 100 04/26/22 21:45 79 28 H 127/76 100 04/26/22 21:30 77 28 H 131/77 100 04/26/22 21:15 73 28 H 129/71 98 04/26/22 21:00 73 28 H 122/72 97 04/26/22 20:45 97.2 F L 72 28 H 119/71 95 04/26/22 20:30 73 29 H 119/75 91 L 04/26/22 20:15 73 35 H 119/69 94 L 04/26/22 20:00 73 28 H 108/59 90 L 04/26/22 19:45 73 30 H 104/56 90 L 04/26/22 19:30 72 24 97/53 89 L 04/26/22 19:15 67 29 H 99/46 04/26/22 19:00 68 20 96/52 04/26/22 18:45 64 30 H 101/59 04/26/22 18:30 71 20 108/70 04/26/22 18:15 71 20 82/62 81 L 04/26/22 18:00 75 20 115/78 04/26/22 17:24 6 L 04/26/22 15:50 8 L 04/26/22 14:00 49 L 15 94/57 92 L FiO2 04/27/22 10:59 40 04/27/22 10:42 04/27/22 10:22 04/27/22 10:15 40 04/27/22 10:12 04/27/22 10:00 40 04/27/22 09:45 40 04/27/22 09:30 40 04/27/22 09:15 40 04/27/22 09:00 04/27/22 08:45 04/27/22 08:30 04/27/22 08:15 04/27/22 08:00 90 04/27/22 07:48 40 04/27/22 07:45 40 04/27/22 07:30 40 04/27/22 07:15 40 04/27/22 07:00 04/27/22 06:45 04/27/22 06:30 04/27/22 06:18 40 04/27/22 06:15 04/27/22 06:00 04/27/22 05:45 04/27/22 05:30 04/27/22 05:15 04/27/22 05:00 04/27/22 04:45 04/27/22 04:30 04/27/22 04:15 04/27/22 04:00 90 04/27/22 03:45 04/27/22 03:30 04/27/22 03:23 50 04/27/22 03:15 04/27/22 03:00 04/27/22 02:45 04/27/22 02:30 04/27/22 02:15 04/27/22 02:00 04/27/22 01:45 04/27/22 01:37 70 04/27/22 01:30 04/27/22 01:15 04/27/22 01:00 04/27/22 00:54 04/27/22 00:45 04/27/22 00:30 04/27/22 00:15 04/27/22 00:00 90 04/26/22 23:45 04/26/22 23:43 100 04/26/22 23:30 04/26/22 23:28 90 04/26/22 23:15 04/26/22 23:14 04/26/22 23:00 04/26/22 22:45 04/26/22 22:30 04/26/22 22:15 04/26/22 22:00 04/26/22 21:45 04/26/22 21:30 04/26/22 21:15 04/26/22 21:00 04/26/22 20:45 04/26/22 20:30 100 04/26/22 20:15 04/26/22 20:00 100 04/26/22 19:45 04/26/22 19:30 04/26/22 19:15 04/26/22 19:00 100 04/26/22 18:45 04/26/22 18:30 04/26/22 18:15 100 04/26/22 18:00 100 04/26/22 17:24 04/26/22 15:50 04/26/22 14:00 Intake and Output 04/26/22 04/27/22 04/27/22 22:59 06:59 14:59 Intake Total 614.092 6341.770 353.895 Output Total 0 3000 0 Balance 298.767 -1962.230 353.895 Intake: IV 64.3 264.3 275 Insulin Regular 100 unit 4.3 4.3 In Sodium Chloride 0.9% 100 ml @ Titrate IV .Q0M [facility] Rx#:[id number] Piperacillin-Tazobactam 3 100 200 .375 gm In Sodium Chloride 0.9% 100 ml @ 25 mls/hr IVPB Q12HR [facility] Rx #:[id number] Sodium Chloride 0.9% 1, 60 160 75 000 ml @ 20 mls/hr IV . Q24H [facility] Rx#:[id number] Intake, IV Titration 34.467 273.470 78.895 Amount Insulin Regular 100 unit 27.542 9.955 In Sodium Chloride 0.9% 100 ml @ Titrate IV .Q0M [facility] Rx#:[id number] Midazolam HCl 50 mg In 28.967 51.984 Sodium Chloride 0.9% 40 ml @ 5 MG/HR 5 mls/hr IV .Q10H [facility] Rx#:[id number] propofoL 1,000 mg In 5.5 193.944 68.94 Empty Bag 1 bag @ 15 MCG/ KG/MIN 4.286 mls/hr IV . [id number] [facility] Rx#:[id number] Oral 200 Blood Product 0 Unit 0 Hemodialysis 500 Output: Urine 0 0 0 Hemodialysis 1500 Other 1500 Other: # Voids 0 0 Weight 54.9 kg Physical Exam: Revealed 51-year-old female intubated and mechanically ventilated and sedated in no distress. Head: Atraumatic, normocephalic. Endotracheal tube and orogastric tube are intact. HEENT:[Neck is supple.] [No neck masses.] [No thyromegaly.] [No JVD.] Chest: Symmetrical chest expansion crackles at the bases. No rhonchi and no wheezes Cardiac Exam: [Normal S1 and S2, no S3 gallop, 2/6 systolic murmur thought the precordium. Abdomen: [Soft, nontender, no megaly, no rebound, no guarding, normal bowel sounds.] Extremities: [No clubbing, no edema, no cyanosis.] Neurological Exam: Cannot assess, patient is fully sedated. Psychiatric: Cannot be assessed fully sedated. Results - Laboratory Findings CBC and BMP: 04/27/22 05:55 04/27/22 05:55 ABG ABG pH 7.38 (7.35-7.45) 04/27/22 06:01 ABG pCO2 41 mmHg (35-45) 04/27/22 06:01 ABG pO2 143 mmHg (83-108) H 04/27/22 06:01 ABG O2 Saturation 99.8 % (94-97) H 04/27/22 06:01 PT/INR, D-dimer PT 10.2 sec (9.0-12.0) 04/24/22 20:51 INR 0.9 (<1.2) 04/24/22 20:51 Abnormal lab findings: Abnormal Labs 04/24/22 04/24/22 04/24/22 20:51 20:51 20:53 WBC 11.8 H RBC 2.61 L Hgb 8.5 L Hct 24.3 L MCV RDW 16.3 H Plt Count Neutrophils # 10.0 H Lymphocytes # 0.8 L ABG pH ABG pCO2 ABG pO2 ABG Total CO2 ABG O2 Saturation Sodium 134 L Potassium 5.9 H Chloride Carbon Dioxide 21 L BUN 59 H Creatinine 7.33 H* Glucose 203 H POC Glucose (mg/dL) Hemoglobin A1c Plasma Lactic Acid Dio Calcium AST 68 H ALT 122 H Alkaline Phosphatase 358 H Total Protein Coronavirus (PCR) Detected A Crossmatch 04/25/22 04/25/22 04/25/22 00:26 06:36 16:28 WBC RBC Hgb Hct MCV RDW Plt Count Neutrophils # Lymphocytes # ABG pH ABG pCO2 ABG pO2 ABG Total CO2 ABG O2 Saturation Sodium Potassium Chloride Carbon Dioxide BUN Creatinine Glucose POC Glucose (mg/dL) 41 L 142 H 206 H Hemoglobin A1c Plasma Lactic Acid Dio Calcium AST ALT Alkaline Phosphatase Total Protein Coronavirus (PCR) Crossmatch 04/25/22 04/26/22 04/26/22 20:41 02:18 09:27 WBC RBC Hgb Hct MCV RDW Plt Count Neutrophils # Lymphocytes # ABG pH ABG pCO2 ABG pO2 ABG Total CO2 ABG O2 Saturation Sodium Potassium Chloride Carbon Dioxide BUN Creatinine Glucose POC Glucose (mg/dL) 261 H 270 H 68 L Hemoglobin A1c Plasma Lactic Acid Dio Calcium AST ALT Alkaline Phosphatase Total Protein Coronavirus (PCR) Crossmatch 04/26/22 04/26/22 04/26/22 11:29 13:42 16:18 WBC RBC Hgb Hct MCV RDW Plt Count Neutrophils # Lymphocytes # ABG pH ABG pCO2 ABG pO2 ABG Total CO2 ABG O2 Saturation Sodium Potassium Chloride Carbon Dioxide BUN Creatinine Glucose POC Glucose (mg/dL) 66 L 249 H 474 H Hemoglobin A1c Plasma Lactic Acid Dio Calcium AST ALT Alkaline Phosphatase Total Protein Coronavirus (PCR) Crossmatch 04/26/22 04/26/22 04/26/22 17:26 17:41 17:41 WBC 17.1 H RBC 2.45 L Hgb 7.8 L Hct 24.7 L MCV 100.6 H D RDW 16.7 H Plt Count Neutrophils # 12.9 H Lymphocytes # ABG pH ABG pCO2 ABG pO2 ABG Total CO2 ABG O2 Saturation Sodium 131 L Potassium 8.9 H* Chloride 89 L Carbon Dioxide BUN 63 H Creatinine 5.86 H Glucose 562 H* POC Glucose (mg/dL) >600 H Hemoglobin A1c Plasma Lactic Acid Dio Calcium 10.3 H AST 291 H ALT 352 H Alkaline Phosphatase 473 H Total Protein 5.6 L Coronavirus (PCR) Crossmatch 04/26/22 04/26/22 04/26/22 17:41 17:58 18:19 WBC RBC Hgb Hct MCV RDW Plt Count Neutrophils # Lymphocytes # ABG pH ABG pCO2 ABG pO2 ABG Total CO2 ABG O2 Saturation Sodium Potassium Chloride Carbon Dioxide BUN Creatinine Glucose POC Glucose (mg/dL) 570 H Hemoglobin A1c 8.4 H Plasma Lactic Acid Dio 4.9 H* Calcium AST ALT Alkaline Phosphatase Total Protein Coronavirus (PCR) Crossmatch 04/26/22 04/26/22 04/26/22 18:38 19:58 21:24 WBC RBC Hgb Hct MCV RDW Plt Count Neutrophils # Lymphocytes # ABG pH 7.21 L ABG pCO2 56 H ABG pO2 56 L* ABG Total CO2 ABG O2 Saturation 83.5 L Sodium Potassium Chloride Carbon Dioxide BUN Creatinine Glucose POC Glucose (mg/dL) 480 H 435 H Hemoglobin A1c Plasma Lactic Acid Dio Calcium AST ALT Alkaline Phosphatase Total Protein Coronavirus (PCR) Crossmatch 04/26/22 04/26/22 04/26/22 22:23 23:23 23:49 WBC RBC Hgb Hct MCV RDW Plt Count Neutrophils # Lymphocytes # ABG pH ABG pCO2 ABG pO2 ABG Total CO2 ABG O2 Saturation Sodium Potassium Chloride Carbon Dioxide BUN Creatinine 1.81 H Glucose 130 H POC Glucose (mg/dL) 250 H 189 H Hemoglobin A1c Plasma Lactic Acid Dio Calcium AST ALT Alkaline Phosphatase Total Protein Coronavirus (PCR) Crossmatch 04/27/22 04/27/22 04/27/22 02:09 03:22 04:47 WBC RBC Hgb Hct MCV RDW Plt Count Neutrophils # Lymphocytes # ABG pH ABG pCO2 ABG pO2 ABG Total CO2 ABG O2 Saturation Sodium Potassium Chloride Carbon Dioxide BUN Creatinine Glucose POC Glucose (mg/dL) 197 H 309 H 250 H Hemoglobin A1c Plasma Lactic Acid Dio Calcium AST ALT Alkaline Phosphatase Total Protein Coronavirus (PCR) Crossmatch 04/27/22 04/27/22 04/27/22 05:55 05:55 05:56 WBC 3.7 L RBC 2.02 L Hgb 6.4 L* Hct 19.4 L* MCV RDW 17.1 H Plt Count 120 L D Neutrophils # Lymphocytes # 0.3 L ABG pH ABG pCO2 ABG pO2 ABG Total CO2 ABG O2 Saturation Sodium Potassium Chloride Carbon Dioxide BUN 32 H Creatinine 3.47 H Glucose 190 H POC Glucose (mg/dL) 206 H Hemoglobin A1c Plasma Lactic Acid Dio Calcium 8.0 L AST ALT Alkaline Phosphatase Total Protein Coronavirus (PCR) Crossmatch 04/27/22 04/27/22 04/27/22 06:01 07:00 07:10 WBC RBC Hgb Hct MCV RDW Plt Count Neutrophils # Lymphocytes # ABG pH ABG pCO2 ABG pO2 143 H ABG Total CO2 25 H ABG O2 Saturation 99.8 H Sodium Potassium Chloride Carbon Dioxide BUN Creatinine Glucose POC Glucose (mg/dL) 159 H Hemoglobin A1c Plasma Lactic Acid Dio Calcium AST ALT Alkaline Phosphatase Total Protein Coronavirus (PCR) Crossmatch See Detail 04/27/22 04/27/22 09:55 11:03 WBC RBC Hgb Hct MCV RDW Plt Count Neutrophils # Lymphocytes # ABG pH ABG pCO2 ABG pO2 ABG Total CO2 ABG O2 Saturation Sodium Potassium Chloride Carbon Dioxide BUN Creatinine Glucose POC Glucose (mg/dL) 140 H 137 H Hemoglobin A1c Plasma Lactic Acid Dio Calcium AST ALT Alkaline Phosphatase Total Protein Coronavirus (PCR) Crossmatch - Diagnostic Findings Chest x-ray: image reviewed (As noted in HPI) Assessment and Plan Assessment: Impression: Acute hypoxic and hypercapnic respiratory failure secondary to cardiac arrest suspect cardiac arrest from hyperkalemia, potassium was 8.9, this is most likely secondary to her end-stage renal disease. Prior to that on 04/24 and her potassium was 5.9 Acute COVID-19 infection, doubt COVID-19 pneumonia. Strongly suspect aspiration pneumonia Fluid overload secondary to end-stage renal disease History of CVA/TIA Type 2 diabetes. End-stage renal disease, on hemodialysis. Previous history of cardiac arrest. History of diabetic retinopathy and neuropathy History of depression Recommendation: Continue ventilatory support, plan to taper sedation in the next few hours, assess mental status, and possibly give the patient a trial of weaning if possible. If there is any compromise in mental status, may consider neurology consultation to evaluate for possible anoxic brain injury Nutritional support/enteral feeding Hemodynamic support if necessary presently the patient is not requiring any pressors Antibiotics for presumptive aspiration pneumonia COVID-19 cocktail. Hemodialysis as needed per nephrology Continue to monitor closely electrolytes and specially potassium Continue to monitor sugars and address accordingly Patient to be seen by cardiology on consultation for her cardiac arrest. May need to repeat echocardiogram. Overall prognosis seems to be very poor and guarded. We will continue to follow. Patient is definitely critically ill Time with Patient: Greater than 30
[2022-04-27] MEDS ORDERED: MAGNESIUM SULFATE-D5W PMX 1 GM in DEXTROSE/WATER 1 100ML.BAG IVPB ONE (11:46)
[2022-04-27 11:58] LABS: Glucose,Whole Blood 131 mg/dL (70-110)
--- NOTE | 2022-04-27 12:04 | P.PN ---
Subjective Patient is seen for follow-up for end-stage renal disease. She was admitted to the hospital with shortness of breath and increased weakness. Patient tested positive for covid 19 She was also volume overloaded and has had extra hemodialysis treatments. Yesterday patient had a cardiac arrest on the floor and was transferred to the ICU. It appears that she has received 4 mg of morphine in the morning and then another dose that afternoon. Patient did receive Narcan however she was noticed to be in asystole. CPR was performed for about 7 minutes. Labs drawn at that time showed a potassium of 8.9. Blood sugar was elevated to 562 . Serum a cetone was negative. Patient had tolerated her dialysis quite well on 04/25/2022 with UF of 4.5 L. She was dialyzed on a 2K bath which was appropriate for her serum potassium of 5.9 on 04/24/2022 Patient received emergency dialysis last night for hyperkalemia. Repeat potassium was 3.5 and it is 4.6 today Patient is currently on the vent. There are plans for possible extubation. She is seen on hemodialysis and tolerating her treatment well. Blood pressure has been marginal with systolic around 100-115 mmHg. So far UF goal is set for about 3-3.5 L. Objective - Vital Signs Vital signs: Vital Signs Temp 98.1 F 04/27/22 11:28 Pulse 80 04/27/22 11:28 Resp 28 H 04/27/22 11:28 BP 112/58 04/27/22 11:28 Pulse Ox 100 04/27/22 11:15 FiO2 40 04/27/22 10:59 Intake & Output 04/26/22 04/27/22 04/27/22 18:59 06:59 18:59 Intake Total 200 1136.537 642.895 Output Total 3000 0 Balance 200 -1863.463 642.895 Weight 54.9 kg Intake: IV 328.6 290 Insulin Regular 100 unit 8.6 In Sodium Chloride 0.9% 100 ml @ Titrate IV .Q0M [facility] Rx#:[id number] Piperacillin-Tazobactam 3 100 200 .375 gm In Sodium Chloride 0.9% 100 ml @ 25 mls/hr IVPB Q12HR [facility] Rx #:[id number] Sodium Chloride 0.9% 1, 220 90 000 ml @ 20 mls/hr IV . Q24H [facility] Rx#:[id number] Intake, IV Titration 307.937 78.895 Amount Insulin Regular 100 unit 27.542 9.955 In Sodium Chloride 0.9% 100 ml @ Titrate IV .Q0M [facility] Rx#:[id number] Midazolam HCl 50 mg In 80.951 Sodium Chloride 0.9% 40 ml @ 5 MG/HR 5 mls/hr IV .Q10H [facility] Rx#:[id number] propofoL 1,000 mg In 199.444 68.94 Empty Bag 1 bag @ 15 MCG/ KG/MIN 4.286 mls/hr IV . [id number] [facility] Rx#:[id number] Oral 200 Blood Product 274 Rc Pheresis 2 As3 Unit 274 [id number] Hemodialysis 500 Output: Urine 0 0 Hemodialysis 1500 Other 1500 Other: # Voids 0 - Exam Patient is on the vent she is currently seen on dialysis. Bilateral breath sounds are heard CVS S1 and S2 Abdomen is soft Examination lower extremities shows trace edema bilaterally - Labs CBC & Chem 7: 04/27/22 05:55 04/27/22 05:55 Labs: Abnormal Lab Results - Last 24 Hours (Table) 04/26/22 04/26/22 04/26/22 Range/Units 13:42 16:18 17:26 WBC (3.8-10.6) k/uL RBC (3.80-5.40) m/uL Hgb (11.4-16.0) gm/dL Hct (34.0-46.0) % MCV (80.0-100.0) fL RDW (11.5-15.5) % Plt Count (150-450) k/uL Neutrophils # (1.3-7.7) k/uL Lymphocytes # (1.0-4.8) k/uL ABG pH (7.35-7.45) ABG pCO2 (35-45) mmHg ABG pO2 (83-108) mmHg ABG Total CO2 (19-24) mmol/L ABG O2 Saturation (94-97) % Sodium (137-145) mmol/L Potassium (3.5-5.1) mmol/L Chloride (98-107) mmol/L BUN (7-17) mg/dL Creatinine (0.52-1.04) mg/dL Glucose (74-99) mg/dL POC Glucose (mg/dL) 249 H 474 H >600 H (70-110) mg/dL Hemoglobin A1c (0.0-6.0) % Plasma Lactic Acid Dio (0.7-2.0) mmol/L Calcium (8.4-10.2) mg/dL AST (14-36) U/L ALT (4-34) U/L Alkaline Phosphatase (38-126) U/L Troponin I (0.000-0.034) ng/mL Total Protein (6.3-8.2) g/dL Crossmatch 04/26/22 04/26/22 04/26/22 Range/Units 17:41 17:41 17:41 WBC 17.1 H (3.8-10.6) k/uL RBC 2.45 L (3.80-5.40) m/uL Hgb 7.8 L (11.4-16.0) gm/dL Hct 24.7 L (34.0-46.0) % MCV 100.6 H D (80.0-100.0) fL RDW 16.7 H (11.5-15.5) % Plt Count (150-450) k/uL Neutrophils # 12.9 H (1.3-7.7) k/uL Lymphocytes # (1.0-4.8) k/uL ABG pH (7.35-7.45) ABG pCO2 (35-45) mmHg ABG pO2 (83-108) mmHg ABG Total CO2 (19-24) mmol/L ABG O2 Saturation (94-97) % Sodium 131 L (137-145) mmol/L Potassium 8.9 H* (3.5-5.1) mmol/L Chloride 89 L (98-107) mmol/L BUN 63 H (7-17) mg/dL Creatinine 5.86 H (0.52-1.04) mg/dL Glucose 562 H* (74-99) mg/dL POC Glucose (mg/dL) (70-110) mg/dL Hemoglobin A1c 8.4 H (0.0-6.0) % Plasma Lactic Acid Dio (0.7-2.0) mmol/L Calcium 10.3 H (8.4-10.2) mg/dL AST 291 H (14-36) U/L ALT 352 H (4-34) U/L Alkaline Phosphatase 473 H (38-126) U/L Troponin I (0.000-0.034) ng/mL Total Protein 5.6 L (6.3-8.2) g/dL Crossmatch 04/26/22 04/26/22 04/26/22 Range/Units 17:58 18:19 18:38 WBC (3.8-10.6) k/uL RBC (3.80-5.40) m/uL Hgb (11.4-16.0) gm/dL Hct (34.0-46.0) % MCV (80.0-100.0) fL RDW (11.5-15.5) % Plt Count (150-450) k/uL Neutrophils # (1.3-7.7) k/uL Lymphocytes # (1.0-4.8) k/uL ABG pH 7.21 L (7.35-7.45) ABG pCO2 56 H (35-45) mmHg ABG pO2 56 L* (83-108) mmHg ABG Total CO2 (19-24) mmol/L ABG O2 Saturation 83.5 L (94-97) % Sodium (137-145) mmol/L Potassium (3.5-5.1) mmol/L Chloride (98-107) mmol/L BUN (7-17) mg/dL Creatinine (0.52-1.04) mg/dL Glucose (74-99) mg/dL POC Glucose (mg/dL) 570 H (70-110) mg/dL Hemoglobin A1c (0.0-6.0) % Plasma Lactic Acid Dio 4.9 H* (0.7-2.0) mmol/L Calcium (8.4-10.2) mg/dL AST (14-36) U/L ALT (4-34) U/L Alkaline Phosphatase (38-126) U/L Troponin I (0.000-0.034) ng/mL Total Protein (6.3-8.2) g/dL Crossmatch 04/26/22 04/26/22 04/26/22 Range/Units 19:58 21:24 22:23 WBC (3.8-10.6) k/uL RBC (3.80-5.40) m/uL Hgb (11.4-16.0) gm/dL Hct (34.0-46.0) % MCV (80.0-100.0) fL RDW (11.5-15.5) % Plt Count (150-450) k/uL Neutrophils # (1.3-7.7) k/uL Lymphocytes # (1.0-4.8) k/uL ABG pH (7.35-7.45) ABG pCO2 (35-45) mmHg ABG pO2 (83-108) mmHg ABG Total CO2 (19-24) mmol/L ABG O2 Saturation (94-97) % Sodium (137-145) mmol/L Potassium (3.5-5.1) mmol/L Chloride (98-107) mmol/L BUN (7-17) mg/dL Creatinine (0.52-1.04) mg/dL Glucose (74-99) mg/dL POC Glucose (mg/dL) 480 H 435 H 250 H (70-110) mg/dL Hemoglobin A1c (0.0-6.0) % Plasma Lactic Acid Dio (0.7-2.0) mmol/L Calcium (8.4-10.2) mg/dL AST (14-36) U/L ALT (4-34) U/L Alkaline Phosphatase (38-126) U/L Troponin I (0.000-0.034) ng/mL Total Protein (6.3-8.2) g/dL Crossmatch 04/26/22 04/26/22 04/27/22 Range/Units 23:23 23:49 02:09 WBC (3.8-10.6) k/uL RBC (3.80-5.40) m/uL Hgb (11.4-16.0) gm/dL Hct (34.0-46.0) % MCV (80.0-100.0) fL RDW (11.5-15.5) % Plt Count (150-450) k/uL Neutrophils # (1.3-7.7) k/uL Lymphocytes # (1.0-4.8) k/uL ABG pH (7.35-7.45) ABG pCO2 (35-45) mmHg ABG pO2 (83-108) mmHg ABG Total CO2 (19-24) mmol/L ABG O2 Saturation (94-97) % Sodium (137-145) mmol/L Potassium (3.5-5.1) mmol/L Chloride (98-107) mmol/L BUN (7-17) mg/dL Creatinine 1.81 H (0.52-1.04) mg/dL Glucose 130 H (74-99) mg/dL POC Glucose (mg/dL) 189 H 197 H (70-110) mg/dL Hemoglobin A1c (0.0-6.0) % Plasma Lactic Acid Dio (0.7-2.0) mmol/L Calcium (8.4-10.2) mg/dL AST (14-36) U/L ALT (4-34) U/L Alkaline Phosphatase (38-126) U/L Troponin I (0.000-0.034) ng/mL Total Protein (6.3-8.2) g/dL Crossmatch 04/27/22 04/27/22 04/27/22 Range/Units 03:22 04:47 05:55 WBC 3.7 L (3.8-10.6) k/uL RBC 2.02 L (3.80-5.40) m/uL Hgb 6.4 L* (11.4-16.0) gm/dL Hct 19.4 L* (34.0-46.0) % MCV (80.0-100.0) fL RDW 17.1 H (11.5-15.5) % Plt Count 120 L D (150-450) k/uL Neutrophils # (1.3-7.7) k/uL Lymphocytes # 0.3 L (1.0-4.8) k/uL ABG pH (7.35-7.45) ABG pCO2 (35-45) mmHg ABG pO2 (83-108) mmHg ABG Total CO2 (19-24) mmol/L ABG O2 Saturation (94-97) % Sodium (137-145) mmol/L Potassium (3.5-5.1) mmol/L Chloride (98-107) mmol/L BUN (7-17) mg/dL Creatinine (0.52-1.04) mg/dL Glucose (74-99) mg/dL POC Glucose (mg/dL) 309 H 250 H (70-110) mg/dL Hemoglobin A1c (0.0-6.0) % Plasma Lactic Acid Dio (0.7-2.0) mmol/L Calcium (8.4-10.2) mg/dL AST (14-36) U/L ALT (4-34) U/L Alkaline Phosphatase (38-126) U/L Troponin I (0.000-0.034) ng/mL Total Protein (6.3-8.2) g/dL Crossmatch 04/27/22 04/27/22 04/27/22 Range/Units 05:55 05:56 06:01 WBC (3.8-10.6) k/uL RBC (3.80-5.40) m/uL Hgb (11.4-16.0) gm/dL Hct (34.0-46.0) % MCV (80.0-100.0) fL RDW (11.5-15.5) % Plt Count (150-450) k/uL Neutrophils # (1.3-7.7) k/uL Lymphocytes # (1.0-4.8) k/uL ABG pH (7.35-7.45) ABG pCO2 (35-45) mmHg ABG pO2 143 H (83-108) mmHg ABG Total CO2 25 H (19-24) mmol/L ABG O2 Saturation 99.8 H (94-97) % Sodium (137-145) mmol/L Potassium (3.5-5.1) mmol/L Chloride (98-107) mmol/L BUN 32 H (7-17) mg/dL Creatinine 3.47 H (0.52-1.04) mg/dL Glucose 190 H (74-99) mg/dL POC Glucose (mg/dL) 206 H (70-110) mg/dL Hemoglobin A1c (0.0-6.0) % Plasma Lactic Acid Dio (0.7-2.0) mmol/L Calcium 8.0 L (8.4-10.2) mg/dL AST (14-36) U/L ALT (4-34) U/L Alkaline Phosphatase (38-126) U/L Troponin I (0.000-0.034) ng/mL Total Protein (6.3-8.2) g/dL Crossmatch 04/27/22 04/27/22 04/27/22 Range/Units 07:00 07:10 09:55 WBC (3.8-10.6) k/uL RBC (3.80-5.40) m/uL Hgb (11.4-16.0) gm/dL Hct (34.0-46.0) % MCV (80.0-100.0) fL RDW (11.5-15.5) % Plt Count (150-450) k/uL Neutrophils # (1.3-7.7) k/uL Lymphocytes # (1.0-4.8) k/uL ABG pH (7.35-7.45) ABG pCO2 (35-45) mmHg ABG pO2 (83-108) mmHg ABG Total CO2 (19-24) mmol/L ABG O2 Saturation (94-97) % Sodium (137-145) mmol/L Potassium (3.5-5.1) mmol/L Chloride (98-107) mmol/L BUN (7-17) mg/dL Creatinine (0.52-1.04) mg/dL Glucose (74-99) mg/dL POC Glucose (mg/dL) 159 H 140 H (70-110) mg/dL Hemoglobin A1c (0.0-6.0) % Plasma Lactic Acid Dio (0.7-2.0) mmol/L Calcium (8.4-10.2) mg/dL AST (14-36) U/L ALT (4-34) U/L Alkaline Phosphatase (38-126) U/L Troponin I (0.000-0.034) ng/mL Total Protein (6.3-8.2) g/dL Crossmatch See Detail 04/27/22 04/27/22 Range/Units 10:56 11:03 WBC (3.8-10.6) k/uL RBC (3.80-5.40) m/uL Hgb (11.4-16.0) gm/dL Hct (34.0-46.0) % MCV (80.0-100.0) fL RDW (11.5-15.5) % Plt Count (150-450) k/uL Neutrophils # (1.3-7.7) k/uL Lymphocytes # (1.0-4.8) k/uL ABG pH (7.35-7.45) ABG pCO2 (35-45) mmHg ABG pO2 (83-108) mmHg ABG Total CO2 (19-24) mmol/L ABG O2 Saturation (94-97) % Sodium (137-145) mmol/L Potassium (3.5-5.1) mmol/L Chloride (98-107) mmol/L BUN (7-17) mg/dL Creatinine (0.52-1.04) mg/dL Glucose (74-99) mg/dL POC Glucose (mg/dL) 137 H (70-110) mg/dL Hemoglobin A1c (0.0-6.0) % Plasma Lactic Acid Dio (0.7-2.0) mmol/L Calcium (8.4-10.2) mg/dL AST (14-36) U/L ALT (4-34) U/L Alkaline Phosphatase (38-126) U/L Troponin I 4.240 H* (0.000-0.034) ng/mL Total Protein (6.3-8.2) g/dL Crossmatch Microbiology - Last 24 Hours (Table) 04/26/22 18:16 Sputum Culture - Preliminary Sputum 04/24/22 20:51 Blood Culture - Preliminary Blood No Growth after 48 hours Assessment and Plan Assessment: 1. End-stage renal disease on hemodialysis on a Monday schedule 2. Volume overload 3. COVID-19 PCR positive 4. CK D mineral bone disorder 5. Uncontrolled hypertension partly related to volume overload, improved with ultrafiltration 6. Status post cardiac arrest associated with hyperkalemia as well as respiratory depression from opiates. 7. Hyperkalemia status post emergency treatment last night. Patient's blood sugar was also significantly elevated at 562 causing significant shift of potassium. This has improved with insulin drip and hemodialysis last night. Plan: Hemodialysis today with UF goal of about 3-3.5 L as tolerated Reevaluate for hemodialysis in a.m. Repeat labs in a.m. Monitor blood sugars closely as patient has brittle diabetes.
[2022-04-27 13:04] LABS: Glucose,Whole Blood 143 mg/dL (70-110)
[2022-04-27 13:09] LABS: Glucose,Whole Blood 124 mg/dL (70-110)
[2022-04-27 13:57] LABS: Glucose,Whole Blood 154 mg/dL (70-110)
[2022-04-27 15:02] LABS: Glucose,Whole Blood 210 mg/dL (70-110)
[2022-04-27 15:53] LABS: Anisocytosis Slight; HCT 23.9 % (34.0-46.0); Hypochromasia Slight; MCH 31.4 pg (25.0-35.0); MCHC 33.3 g/dL (31.0-37.0); MCV 94.3 fL (80.0-100.0); Mean Platelet Volume 10.5; Platelet Count 138 k/uL (150-450); Poikilocytosis Slight; RBC 2.54 m/uL (3.80-5.40); RDW 17.1 % (11.5-15.5)
[2022-04-27 16:03] LABS: Glucose,Whole Blood 349 mg/dL (70-110)
[2022-04-27] MEDS: SODIUM CHLORIDE 0.9% 1,000 ML IV SCH (16:04)
[2022-04-27 17:01] LABS: Glucose,Whole Blood 313 mg/dL (70-110)
[2022-04-27 17:27] LABS: ABG Base Excess 0.2 mmol/L; ABG HCO3 25 mmol/L (21-25); ABG Oxygen Saturation 98.6 % (94-97); ABG PCO2 38 mmHg (35-45); ABG PH 7.42 (7.35-7.45); ABG PO2 89 mmHg (83-108); ABG TCO2 26 mmol/L (19-24); Allen Test Performed? Yes
[2022-04-27 17:59] LABS: Glucose,Whole Blood 215 mg/dL (70-110)
[2022-04-27 19:04] LABS: Calcium 9.3 mg/dL (8.4-10.2); Potassium 4.2 mmol/L (3.5-5.1)
[2022-04-27 19:15] LABS: Glucose,Whole Blood 112 mg/dL (70-110)
[2022-04-27 20:34] LABS: Glucose,Whole Blood 178 mg/dL (70-110)
--- NOTE | 2022-04-27 22:07 | CONS ---
CONSULTATION CHIEF COMPLAINT: Cardiac arrest. HISTORY OF PRESENT ILLNESS: This is a 31-year-old lady with history of end-stage renal disease, on hemodialysis, hypertension, COPD, and dyslipidemia, who presented to hospital on 04/25/2022 with symptoms of not feeling well, short of breath. She apparently has had COVID, had cough and was not quite taking any of her medications. On the floor yesterday, she had an episode of chest pain and received 4 mg of morphine for chest discomfort and subsequently has received Narcan because of unresponsiveness and developed cardiac arrest after that. When she was connected to a monitor, she was asystolic and she was resuscitated and went into a junctional rhythm and subsequently to sinus rhythm. Her potassium apparently was 8.9 at the time of this event. Subsequently, potassium came down to 3.5. Since being admitted to ICU, the patient remains in sinus rhythm, stable hemodynamically and did not have any further cardiorespiratory events. She is currently intubated on vent. MEDICATIONS: She is on, 1. Aspirin. 2. Coreg. 3. Catapres. 4. Lovenox for DVT prophylaxis. 5. Hydralazine. 6. Cozaar. 7. Demadex. PAST MEDICAL HISTORY: Significant for end-stage renal disease, on hemodialysis, hypertension, CVA and TIA, diabetic retinopathy, and gastritis. ALLERGIES: As charted. FAMILY HISTORY: Unable to obtain from the patient who is intubated on vent. SOCIAL HISTORY: Unable to obtain from the patient who is intubated on vent. REVIEW OF SYSTEMS: Unable to obtain from the patient who is intubated on vent. PHYSICAL EXAMINATION: VITAL SIGNS: The patient is afebrile, heart rate is 80 beats per minute, blood pressure is 106/55, respiratory rate is 24. NECK: There is no jugular venous distention. Carotid upstroke is diminished. There is no bruit. CHEST: Reveals diminished air entry at the bases. HEART: Reveals first and second heart sounds. No gallop. Has a systolic murmur at the apex. ABDOMEN: Soft. EXTREMITIES: Did not reveal any edema. Peripheral pulses are felt. LABORATORY DATA: Labs have been reviewed, shows a potassium of 4.6, BUN is 32, creatinine is 3.4. Her hemoglobin is low at 6.4. ASSESSMENT AND PLAN: 1. Status post cardiorespiratory arrest. 2. End-stage renal disease, on hemodialysis. The exact etiology for her cardiorespiratory arrest is unclear. Could be related to hyperkalemia causing bradycardia, where it is somewhat unusual for the potassium drop from 8.4 to 3.7 in such a short time. The other possibility is the morphine that the patient has received. Continue with the current therapies. Prognosis guarded. Obtain an echo to evaluate LV function. EMILY / KYAW: [id number] /
[2022-04-27] MEDS: ACETAMINOPHEN TAB 325 MG TAB PO PRN (22:10)
[2022-04-27 22:12] LABS: Glucose,Whole Blood 323 mg/dL (70-110)
[2022-04-27 23:07] LABS: Glucose,Whole Blood 345 mg/dL (70-110)
[2022-04-28 00:12] LABS: Glucose,Whole Blood 244 mg/dL (70-110)
[2022-04-28 01:20] LABS: Glucose,Whole Blood 88 mg/dL (70-110)
[2022-04-28 02:16] LABS: Anisocytosis Slight; HCT 22.3 % (34.0-46.0); HGB 7.1 gm/dL (11.4-16.0); Hypochromasia Slight; MCH 30.2 pg (25.0-35.0); MCHC 31.8 g/dL (31.0-37.0); MCV 94.9 fL (80.0-100.0); Mean Platelet Volume 10.3; Platelet Count 142 k/uL (150-450); Poikilocytosis Slight; RBC 2.35 m/uL (3.80-5.40); RDW 17.2 % (11.5-15.5)
[2022-04-28 02:21] LABS: Glucose,Whole Blood 47 mg/dL (70-110)
[2022-04-28 02:23] LABS: Glucose,Whole Blood 46 mg/dL (70-110)
[2022-04-28 02:26] LABS: Calcium 9.4 mg/dL (8.4-10.2); Potassium 3.9 mmol/L (3.5-5.1)
[2022-04-28] MEDS: DEXTROSE 50% SYRINGE 50 ML IVP PRN ×3 (02:29→11:17)
--- NOTE | 2022-04-28 02:34 | XR ---
EXAMINATION TYPE: XR chest 1V portable DATE OF EXAM: 04/28/2022 COMPARISON: Yesterday HISTORY: Short of breath TECHNIQUE: Single view FINDINGS: There is pulmonary interstitial and airspace edema. Heart is slightly enlarged. There are c hest leads. Costophrenic angles show no definite pleural effusion. IMPRESSION: There is pulmonary edema which is slightly improved compared to yesterday.
[2022-04-28 02:45] LABS: Glucose,Whole Blood 212 mg/dL (70-110)
[2022-04-28 03:59] LABS: Glucose,Whole Blood 190 mg/dL (70-110)
[2022-04-28 04:09] LABS: Band Neutrophils % 5 %; Eosinophils # (M) 0.09 k/uL (0-0.7); Lymphocytes # (M) 0.81 k/uL (1.0-4.8); Metamyelocytes # (M) 0.09 k/uL (0); Metamyelocytes % 1 %; Monocytes # (M) 0.45 k/uL (0-1.0); Neutrophils % (M) 80 %; Nucleated Red Blood Cells 0 /100 WBC (0-0); Total Cells Counted 200
[2022-04-28] MEDS ORDERED: IPRATROPIUM-ALBUTEROL 3 ML NEB INHALATION STA (04:23)
[2022-04-28] MEDS: DEXAMETHASONE SOD PHOSPHATE 10 MG/ML 1 ML VIAL IVP SCH ×3 (05:13→17:42)
[2022-04-28] MEDS: ALBUTEROL HFA INHALER INHALATION PRN (05:29)
[2022-04-28 05:30] LABS: Glucose,Whole Blood 104 mg/dL (70-110)
[2022-04-28 06:06] LABS: Glucose,Whole Blood 58 mg/dL (70-110)
[2022-04-28 06:43] LABS: Anisocytosis Slight; Basophils # (A) 0.1 k/uL (0-0.2); Basophils % (A) 1 %; Eosinophils # (A) 0.1 k/uL (0-0.7); Eosinophils % (A) 1 %; HCT 21.5 % (34.0-46.0); HGB 7.2 gm/dL (11.4-16.0); Hypochromasia Moderate; Lymphocytes # (A) 0.8 k/uL (1.0-4.8); Lymphocytes % (A) 9 %; MCH 32.5 pg (25.0-35.0); MCHC 33.7 g/dL (31.0-37.0); MCV 96.4 fL (80.0-100.0); Macrocytosis Slight; Mean Platelet Volume 10.2; Monocytes # (A) 0.5 k/uL (0-1.0); Monocytes % (A) 5 %; Neutrophils # (A) 7.3 k/uL (1.3-7.7); Neutrophils % (A) 83 %; Platelet Count 128 k/uL (150-450); RBC 2.23 m/uL (3.80-5.40); RDW 16.7 % (11.5-15.5); WBC 8.8 k/uL (3.8-10.6)
[2022-04-28 06:45] LABS: Glucose,Whole Blood 140 mg/dL (70-110)
[2022-04-28 06:57] LABS: Calcium 9.2 mg/dL (8.4-10.2); Magnesium 2.5 mg/dL (1.6-2.3); Potassium 4.3 mmol/L (3.5-5.1)
[2022-04-28 08:00] LABS: Glucose,Whole Blood 215 mg/dL (70-110)
[2022-04-28] MEDS: INSULIN REGULAR 100 UNIT in SODIUM CHLORIDE 0.9% 100 ML IV SCH (08:09)
[2022-04-28 09:20] LABS: Glucose,Whole Blood 188 mg/dL (70-110)
[2022-04-28 10:15] LABS: Glucose,Whole Blood 98 mg/dL (70-110)
[2022-04-28] MEDS: carvediloL 12.5 MG TAB PO SCH ×2 (10:29→17:41)
[2022-04-28] MEDS: buPROPion SR 150 MG TABLET.ER PO SCH ×2 (10:29→20:53)
[2022-04-28] MEDS: DULoxetine HCL 30 MG CAPSULE.DR PO SCH ×2 (10:30→20:53)
--- NOTE | 2022-04-28 10:49 | P.PN ---
Subjective Patient is seen for follow-up for end-stage renal disease. She was admitted to the hospital with shortness of breath and increased weakness. Patient tested positive for covid 19 She was also volume overloaded and has had extra hemodialysis treatments. Patient had a cardiac arrest on 04/26/2022. Potassium was elevated at 8.9 and patient had also received opiates. Patient has had emergency dialysis and she was successfully extubated yesterday. This morning patient is on BiPAP. She has been having significant watery diarrhea. She is seen on hemodialysis. Blood pressure is in the 140s for systolic and the UF goal is increased to about 4 L today. Cozaar was discontinued. Patient needs to be maintained off of MERRILL inhibitor's or angiotensin receptor blockers given her history of hyperkalemia Objective - Vital Signs Vital signs: Vital Signs Temp 98.3 F 04/28/22 04:00 Pulse 87 04/28/22 07:00 Resp 36 H 04/28/22 07:00 BP 144/85 04/28/22 07:00 Pulse Ox 100 04/28/22 07:00 FiO2 100 04/28/22 07:39 Intake & Output 04/27/22 04/28/22 04/28/22 18:59 06:59 18:59 Intake Total 1163.808 290.161 7.483 Output Total 3500 0 0 Balance -2336.192 290.161 7.483 Weight 54.8 kg 54.8 kg Intake: IV 585 120 Magnesium Sulfate-D5w Pmx 200 1 gm In Dextrose/Water 1 100ml.bag @ 100 mls/hr IVPB ONCE ONE Rx#: [id number] Piperacillin-Tazobactam 3 200 100 .375 gm In Sodium Chloride 0.9% 100 ml @ 25 mls/hr IVPB Q12HR [facility] Rx #:[id number] Sodium Chloride 0.9% 1, 185 20 000 ml @ 20 mls/hr IV . Q24H [facility] Rx#:[id number] Intake, IV Titration 304.808 50.161 7.483 Amount Insulin Regular 100 unit 22.297 50.161 7.483 In Sodium Chloride 0.9% 100 ml @ Titrate IV .Q0M [facility] Rx#:[id number] Midazolam HCl 200 mg In 10.716 Sodium Chloride 0.9% 60 ml @ 5 MG/HR 2.5 mls/hr IV .Q24H [facility] Rx#: [id number] Midazolam HCl 50 mg In 47.133 Sodium Chloride 0.9% 40 ml @ 5 MG/HR 5 mls/hr IV .Q10H [facility] Rx#:[id number] propofoL 1,000 mg In 224.662 Empty Bag 1 bag @ 15 MCG/ KG/MIN 4.286 mls/hr IV . [id number] [facility] Rx#:[id number] Oral 120 Blood Product 274 Rc Pheresis 2 As3 Unit 274 [id number] Output: Urine 0 0 0 Hemodialysis 3500 - Exam Patient is seen on hemodialysis Patient is tolerating her treatment well. Currently on BiPAP Examination lower extremities shows trace edema bilaterally - Labs CBC & Chem 7: 04/28/22 05:49 04/28/22 05:49 Labs: Abnormal Lab Results - Last 24 Hours (Table) 04/27/22 04/27/22 04/27/22 Range/Units 07:10 10:56 11:03 RBC (3.80-5.40) m/uL Hgb (11.4-16.0) gm/dL Hct (34.0-46.0) % RDW (11.5-15.5) % Plt Count (150-450) k/uL Lymphocytes # (1.0-4.8) k/uL Lymphocytes # (Manual) (1.0-4.8) k/uL Metamyelocytes # (Man) (0) k/uL ABG Total CO2 (19-24) mmol/L ABG O2 Saturation (94-97) % Carbon Dioxide (22-30) mmol/L BUN (7-17) mg/dL Creatinine (0.52-1.04) mg/dL Glucose (74-99) mg/dL POC Glucose (mg/dL) 137 H (70-110) mg/dL Magnesium (1.6-2.3) mg/dL Troponin I 4.240 H* (0.000-0.034) ng/mL Crossmatch See Detail 04/27/22 04/27/22 04/27/22 Range/Units 11:57 13:03 13:07 RBC (3.80-5.40) m/uL Hgb (11.4-16.0) gm/dL Hct (34.0-46.0) % RDW (11.5-15.5) % Plt Count (150-450) k/uL Lymphocytes # (1.0-4.8) k/uL Lymphocytes # (Manual) (1.0-4.8) k/uL Metamyelocytes # (Man) (0) k/uL ABG Total CO2 (19-24) mmol/L ABG O2 Saturation (94-97) % Carbon Dioxide (22-30) mmol/L BUN (7-17) mg/dL Creatinine (0.52-1.04) mg/dL Glucose (74-99) mg/dL POC Glucose (mg/dL) 131 H 143 H 124 H (70-110) mg/dL Magnesium (1.6-2.3) mg/dL Troponin I (0.000-0.034) ng/mL Crossmatch 04/27/22 04/27/22 04/27/22 Range/Units 13:56 15:00 15:06 RBC 2.54 L (3.80-5.40) m/uL Hgb 8.0 L D (11.4-16.0) gm/dL Hct 23.9 L (34.0-46.0) % RDW 17.1 H (11.5-15.5) % Plt Count 138 L (150-450) k/uL Lymphocytes # (1.0-4.8) k/uL Lymphocytes # (Manual) (1.0-4.8) k/uL Metamyelocytes # (Man) (0) k/uL ABG Total CO2 (19-24) mmol/L ABG O2 Saturation (94-97) % Carbon Dioxide (22-30) mmol/L BUN (7-17) mg/dL Creatinine (0.52-1.04) mg/dL Glucose (74-99) mg/dL POC Glucose (mg/dL) 154 H 210 H (70-110) mg/dL Magnesium (1.6-2.3) mg/dL Troponin I (0.000-0.034) ng/mL Crossmatch 04/27/22 04/27/22 04/27/22 Range/Units 16:01 17:00 17:20 RBC (3.80-5.40) m/uL Hgb (11.4-16.0) gm/dL Hct (34.0-46.0) % RDW (11.5-15.5) % Plt Count (150-450) k/uL Lymphocytes # (1.0-4.8) k/uL Lymphocytes # (Manual) (1.0-4.8) k/uL Metamyelocytes # (Man) (0) k/uL ABG Total CO2 26 H (19-24) mmol/L ABG O2 Saturation 98.6 H (94-97) % Carbon Dioxide (22-30) mmol/L BUN (7-17) mg/dL Creatinine (0.52-1.04) mg/dL Glucose (74-99) mg/dL POC Glucose (mg/dL) 349 H 313 H (70-110) mg/dL Magnesium (1.6-2.3) mg/dL Troponin I (0.000-0.034) ng/mL Crossmatch 04/27/22 04/27/22 04/27/22 Range/Units 17:56 18:37 19:13 RBC (3.80-5.40) m/uL Hgb (11.4-16.0) gm/dL Hct (34.0-46.0) % RDW (11.5-15.5) % Plt Count (150-450) k/uL Lymphocytes # (1.0-4.8) k/uL Lymphocytes # (Manual) (1.0-4.8) k/uL Metamyelocytes # (Man) (0) k/uL ABG Total CO2 (19-24) mmol/L ABG O2 Saturation (94-97) % Carbon Dioxide 19 L (22-30) mmol/L BUN (7-17) mg/dL Creatinine 1.79 H (0.52-1.04) mg/dL Glucose 166 H (74-99) mg/dL POC Glucose (mg/dL) 215 H 112 H (70-110) mg/dL Magnesium (1.6-2.3) mg/dL Troponin I (0.000-0.034) ng/mL Crossmatch 04/27/22 04/27/22 04/27/22 Range/Units 20:33 22:10 23:04 RBC (3.80-5.40) m/uL Hgb (11.4-16.0) gm/dL Hct (34.0-46.0) % RDW (11.5-15.5) % Plt Count (150-450) k/uL Lymphocytes # (1.0-4.8) k/uL Lymphocytes # (Manual) (1.0-4.8) k/uL Metamyelocytes # (Man) (0) k/uL ABG Total CO2 (19-24) mmol/L ABG O2 Saturation (94-97) % Carbon Dioxide (22-30) mmol/L BUN (7-17) mg/dL Creatinine (0.52-1.04) mg/dL Glucose (74-99) mg/dL POC Glucose (mg/dL) 178 H 323 H 345 H (70-110) mg/dL Magnesium (1.6-2.3) mg/dL Troponin I (0.000-0.034) ng/mL Crossmatch 04/28/22 04/28/22 04/28/22 Range/Units 00:10 01:55 01:55 RBC 2.35 L (3.80-5.40) m/uL Hgb 7.1 L (11.4-16.0) gm/dL Hct 22.3 L (34.0-46.0) % RDW 17.2 H (11.5-15.5) % Plt Count 142 L (150-450) k/uL Lymphocytes # (1.0-4.8) k/uL Lymphocytes # (Manual) 0.81 L (1.0-4.8) k/uL Metamyelocytes # (Man) 0.09 H (0) k/uL ABG Total CO2 (19-24) mmol/L ABG O2 Saturation (94-97) % Carbon Dioxide (22-30) mmol/L BUN 26 H (7-17) mg/dL Creatinine 2.75 H (0.52-1.04) mg/dL Glucose 48 L* (74-99) mg/dL POC Glucose (mg/dL) 244 H (70-110) mg/dL Magnesium (1.6-2.3) mg/dL Troponin I (0.000-0.034) ng/mL Crossmatch 04/28/22 04/28/22 04/28/22 Range/Units 02:20 02:22 02:44 RBC (3.80-5.40) m/uL Hgb (11.4-16.0) gm/dL Hct (34.0-46.0) % RDW (11.5-15.5) % Plt Count (150-450) k/uL Lymphocytes # (1.0-4.8) k/uL Lymphocytes # (Manual) (1.0-4.8) k/uL Metamyelocytes # (Man) (0) k/uL ABG Total CO2 (19-24) mmol/L ABG O2 Saturation (94-97) % Carbon Dioxide (22-30) mmol/L BUN (7-17) mg/dL Creatinine (0.52-1.04) mg/dL Glucose (74-99) mg/dL POC Glucose (mg/dL) 47 L 46 L 212 H (70-110) mg/dL Magnesium (1.6-2.3) mg/dL Troponin I (0.000-0.034) ng/mL Crossmatch 04/28/22 04/28/22 04/28/22 Range/Units 03:56 05:49 05:49 RBC 2.23 L (3.80-5.40) m/uL Hgb 7.2 L (11.4-16.0) gm/dL Hct 21.5 L (34.0-46.0) % RDW 16.7 H (11.5-15.5) % Plt Count 128 L (150-450) k/uL Lymphocytes # 0.8 L (1.0-4.8) k/uL Lymphocytes # (Manual) (1.0-4.8) k/uL Metamyelocytes # (Man) (0) k/uL ABG Total CO2 (19-24) mmol/L ABG O2 Saturation (94-97) % Carbon Dioxide (22-30) mmol/L BUN 30 H (7-17) mg/dL Creatinine 2.97 H (0.52-1.04) mg/dL Glucose 54 L (74-99) mg/dL POC Glucose (mg/dL) 190 H (70-110) mg/dL Magnesium 2.5 H (1.6-2.3) mg/dL Troponin I (0.000-0.034) ng/mL Crossmatch 04/28/22 04/28/22 04/28/22 Range/Units 06:04 06:44 07:59 RBC (3.80-5.40) m/uL Hgb (11.4-16.0) gm/dL Hct (34.0-46.0) % RDW (11.5-15.5) % Plt Count (150-450) k/uL Lymphocytes # (1.0-4.8) k/uL Lymphocytes # (Manual) (1.0-4.8) k/uL Metamyelocytes # (Man) (0) k/uL ABG Total CO2 (19-24) mmol/L ABG O2 Saturation (94-97) % Carbon Dioxide (22-30) mmol/L BUN (7-17) mg/dL Creatinine (0.52-1.04) mg/dL Glucose (74-99) mg/dL POC Glucose (mg/dL) 58 L 140 H 215 H (70-110) mg/dL Magnesium (1.6-2.3) mg/dL Troponin I (0.000-0.034) ng/mL Crossmatch 04/28/22 Range/Units 09:17 RBC (3.80-5.40) m/uL Hgb (11.4-16.0) gm/dL Hct (34.0-46.0) % RDW (11.5-15.5) % Plt Count (150-450) k/uL Lymphocytes # (1.0-4.8) k/uL Lymphocytes # (Manual) (1.0-4.8) k/uL Metamyelocytes # (Man) (0) k/uL ABG Total CO2 (19-24) mmol/L ABG O2 Saturation (94-97) % Carbon Dioxide (22-30) mmol/L BUN (7-17) mg/dL Creatinine (0.52-1.04) mg/dL Glucose (74-99) mg/dL POC Glucose (mg/dL) 188 H (70-110) mg/dL Magnesium (1.6-2.3) mg/dL Troponin I (0.000-0.034) ng/mL Crossmatch Microbiology - Last 24 Hours (Table) 04/26/22 18:16 Gram Stain - Preliminary Sputum Sputum Culture - Preliminary 04/24/22 20:51 Blood Culture - Preliminary Blood No Growth after 72 hours Assessment and Plan Assessment: 1. End-stage renal disease on hemodialysis on a Monday schedule 2. Volume overload 3. COVID-19 PCR positive 4. CK D mineral bone disorder 5. Uncontrolled hypertension partly related to volume overload, improved with ultrafiltration 6. Status post cardiac arrest associated with hyperkalemia as well as respiratory depression from opiates. 7. Hyperkalemia status post emergency treatment last night. Patient's blood sugar was also significantly elevated at 562 causing significant shift of potassium. This has improved with insulin drip and hemodialysis last night. 8. Diarrhea rule out C. diff colitis Plan: Repeat hemodialysis in a.m. Check stool for C. diff Continue to avoid Merrill inhibitors or angiotensin receptor blockers Repeat labs in a.m.
[2022-04-28 11:15] LABS: Glucose,Whole Blood 81 mg/dL (70-110)
[2022-04-28] MEDS: cloNIDine HCL 0.1 MG TAB PO SCH ×3 (11:30→21:04)
--- NOTE | 2022-04-28 11:43 | P.PN ---
Subjective Progress Note Date: 04/28/22 Principal diagnosis: Cardiac arrest This is a 31-year-old female with history of chronic kidney disease/renal failure on hemodialysis. History of previous CVA and previous cardiac arrest, patient presented to the ER on 04/24/22 presented mostly with 1 week history of cough, shortness of breath, and chest pain upon coughing. Pain was described by the ER physician as sharp, no radiation, pain was not associated with diaphoresis, no nausea no vomiting no abdominal pain. Patient had her last hemodialysis 2 days prior. Chest x-ray upon her initial evaluation showed evidence of pulmonary vascular congestion consistent with pulmonary edema/fluid overload, patient tested positive for COVID-19 infection, patient had low pulse oximetry on her initial presentation 85% on room air, and went up to 93% on 2 L. Patient was admitted, and she was seen by nephrology on consultation on 04/25 and she was also seen by her admitting physician on 04/26. On 04/26, at around 1800 p.m., CARLA EDWARD was called overhead. Sound physician responded to the code, patient was being resuscitated upon his arrival. Patient was in asystole and she received a total of 4 epinephrines, 2 bicarb, 1 calcium given patient was intubated however she was noted to have emesis during intubation, and she may have had visible aspiration. Cold lasted about 7 minutes, patient was sent to the ICU on mechanical ventilation. Her potassium was above 8, nephrology was notified, and the patient received treatment for heart high potassium and she received immediate hemodialysis while in the ICU. I was notified about this patient shortly after she arrived to the ICU, and I recommended ventilatory supp ort, adjusted her ventilator settings she initially required high FiO2 and high PEEP. She required more sedation utilizing propofol and Versed because she was still agitated and restless with propofol alone at maximal dose. Recommended Zosyn empirically for presumptive aspiration pneumonia recommended GI and DVT prophylaxis, immediate hemodialysis by nephrology, and reviewed her ABG, and her vent settings were adjusted accordingly. Patient is now in the ICU on mechanical ventilation, she is on assist control rate of 28th of volume 400 FiO2 40% and PEEP of 12. ABG showed a pO2 of 143 pCO2 41 pH of 7.38. And I recommended cutting down the PEEP down to 5, and kept her on 40% FiO2. Patient will be receiving more hemodialysis today. Hemoglobin is down to 6.4 and she'll be receiving 1 unit of packed RBCs. She will also receive hemodialysis again today. She had a temp of 103, cultures are pending and I'm recommending Zosyn for now for presumptive aspiration pneumonia. Patient is on Versed at 7 mg per hour, propofol at 75 mcg/kg/m, her IV fluids at KVO, she is also on insulin drip. This morning labs showed hemoglobin of 6.4. Normal electrolytes, bicarb is normal, BUN is 32 creatinine 3.47. As mentioned earlier patient had positive PCR for COVID-19 infection Reevaluated today on 04/28/22, patient was extubated yesterday, and she was placed initially on nasal cannula, however at night she was transitioned to BiPAP. Presently on BiPAP 05/02/100%, and I cut down her FiO2 to 50%. Patient is undergoing hemodialysis. Patient is also on insulin drip. Patient is tolerating BiPAP quite well, she is arousable, follows simple instructions, does not seem to be in distress. Her IV fluids at KVO. Chest x-ray showed evidence of pulmonary edema. Underlying pneumonia is not entirely ruled out, considering the patient did have witnessed aspiration. However her chest x-ray will likely improve post dialysis. WBC count today is 8.8 hemoglobin is 7.2. Electrolytes are normal BUN is 30 creatinine 2.97 Objective - Vital Signs Vital signs: Vital Signs Temp 101.1 F H 04/28/22 08:00 Pulse 76 04/28/22 11:00 Resp 41 H 04/28/22 11:00 BP 143/72 04/28/22 11:00 Pulse Ox 99 04/28/22 11:00 FiO2 50 04/28/22 11:00 Intake & Output 04/27/22 04/28/22 04/28/22 18:59 06:59 18:59 Intake Total 1163.808 290.161 7.483 Output Total 3500 0 0 Balance -2336.192 290.161 7.483 Weight 54.8 kg 54.8 kg Intake: IV 585 120 Magnesium Sulfate-D5w Pmx 200 1 gm In Dextrose/Water 1 100ml.bag @ 100 mls/hr IVPB ONCE ONE Rx#: [id number] Piperacillin-Tazobactam 3 200 100 .375 gm In Sodium Chloride 0.9% 100 ml @ 25 mls/hr IVPB Q12HR [facility] Rx #:[id number] Sodium Chloride 0.9% 1, 185 20 000 ml @ 20 mls/hr IV . Q24H [facility] Rx#:[id number] Intake, IV Titration 304.808 50.161 7.483 Amount Insulin Regular 100 unit 22.297 50.161 7.483 In Sodium Chloride 0.9% 100 ml @ Titrate IV .Q0M [facility] Rx#:[id number] Midazolam HCl 200 mg In 10.716 Sodium Chloride 0.9% 60 ml @ 5 MG/HR 2.5 mls/hr IV .Q24H [facility] Rx#: [id number] Midazolam HCl 50 mg In 47.133 Sodium Chloride 0.9% 40 ml @ 5 MG/HR 5 mls/hr IV .Q10H [facility] Rx#:[id number] propofoL 1,000 mg In 224.662 Empty Bag 1 bag @ 15 MCG/ KG/MIN 4.286 mls/hr IV . [id number] [facility] Rx#:[id number] Oral 120 Blood Product 274 Rc Pheresis 2 As3 Unit 274 [id number] Output: Urine 0 0 0 Hemodialysis 3500 - Exam Physical Exam: Revealed 51-year-old female on BiPAP, not in distress Head: Atraumatic, normocephalic. HEENT:[Neck is supple.] [No neck masses.] [No thyromegaly.] [No JVD.] Dry mucous membranes. Chest: Symmetrical chest expansion crackles at the bases. No rhonchi and no wheezes Cardiac Exam: [Normal S1 and S2, no S3 gallop, 2/6 systolic murmur thought the precordium. Abdomen: [Soft, nontender, no megaly, no rebound, no guarding, normal bowel sounds.] Extremities: [No clubbing, no edema, no cyanosis.] Neurological Exam: Arousable, alert oriented 3 focal deficit Psychiatric: Depressed mood and flat affect, normal mental status - Labs CBC & Chem 7: 04/28/22 05:49 04/28/22 05:49 Labs: Abnormal Lab Results - Last 24 Hours (Table) 04/27/22 04/27/22 04/27/22 Range/Units 10:56 11:57 13:03 RBC (3.80-5.40) m/uL Hgb (11.4-16.0) gm/dL Hct (34.0-46.0) % RDW (11.5-15.5) % Plt Count (150-450) k/uL Lymphocytes # (1.0-4.8) k/uL Lymphocytes # (Manual) (1.0-4.8) k/uL Metamyelocytes # (Man) (0) k/uL ABG Total CO2 (19-24) mmol/L ABG O2 Saturation (94-97) % Carbon Dioxide (22-30) mmol/L BUN (7-17) mg/dL Creatinine (0.52-1.04) mg/dL Glucose (74-99) mg/dL POC Glucose (mg/dL) 131 H 143 H (70-110) mg/dL Magnesium (1.6-2.3) mg/dL Troponin I 4.240 H* (0.000-0.034) ng/mL 04/27/22 04/27/22 04/27/22 Range/Units 13:07 13:56 15:00 RBC (3.80-5.40) m/uL Hgb (11.4-16.0) gm/dL Hct (34.0-46.0) % RDW (11.5-15.5) % Plt Count (150-450) k/uL Lymphocytes # (1.0-4.8) k/uL Lymphocytes # (Manual) (1.0-4.8) k/uL Metamyelocytes # (Man) (0) k/uL ABG Total CO2 (19-24) mmol/L ABG O2 Saturation (94-97) % Carbon Dioxide (22-30) mmol/L BUN (7-17) mg/dL Creatinine (0.52-1.04) mg/dL Glucose (74-99) mg/dL POC Glucose (mg/dL) 124 H 154 H 210 H (70-110) mg/dL Magnesium (1.6-2.3) mg/dL Troponin I (0.000-0.034) ng/mL 04/27/22 04/27/22 04/27/22 Range/Units 15:06 16:01 17:00 RBC 2.54 L (3.80-5.40) m/uL Hgb 8.0 L D (11.4-16.0) gm/dL Hct 23.9 L (34.0-46.0) % RDW 17.1 H (11.5-15.5) % Plt Count 138 L (150-450) k/uL Lymphocytes # (1.0-4.8) k/uL Lymphocytes # (Manual) (1.0-4.8) k/uL Metamyelocytes # (Man) (0) k/uL ABG Total CO2 (19-24) mmol/L ABG O2 Saturation (94-97) % Carbon Dioxide (22-30) mmol/L BUN (7-17) mg/dL Creatinine (0.52-1.04) mg/dL Glucose (74-99) mg/dL POC Glucose (mg/dL) 349 H 313 H (70-110) mg/dL Magnesium (1.6-2.3) mg/dL Troponin I (0.000-0.034) ng/mL 04/27/22 04/27/22 04/27/22 Range/Units 17:20 17:56 18:37 RBC (3.80-5.40) m/uL Hgb (11.4-16.0) gm/dL Hct (34.0-46.0) % RDW (11.5-15.5) % Plt Count (150-450) k/uL Lymphocytes # (1.0-4.8) k/uL Lymphocytes # (Manual) (1.0-4.8) k/uL Metamyelocytes # (Man) (0) k/uL ABG Total CO2 26 H (19-24) mmol/L ABG O2 Saturation 98.6 H (94-97) % Carbon Dioxide 19 L (22-30) mmol/L BUN (7-17) mg/dL Creatinine 1.79 H (0.52-1.04) mg/dL Glucose 166 H (74-99) mg/dL POC Glucose (mg/dL) 215 H (70-110) mg/dL Magnesium (1.6-2.3) mg/dL Troponin I (0.000-0.034) ng/mL 04/27/22 04/27/22 04/27/22 Range/Units 19:13 20:33 22:10 RBC (3.80-5.40) m/uL Hgb (11.4-16.0) gm/dL Hct (34.0-46.0) % RDW (11.5-15.5) % Plt Count (150-450) k/uL Lymphocytes # (1.0-4.8) k/uL Lymphocytes # (Manual) (1.0-4.8) k/uL Metamyelocytes # (Man) (0) k/uL ABG Total CO2 (19-24) mmol/L ABG O2 Saturation (94-97) % Carbon Dioxide (22-30) mmol/L BUN (7-17) mg/dL Creatinine (0.52-1.04) mg/dL Glucose (74-99) mg/dL POC Glucose (mg/dL) 112 H 178 H 323 H (70-110) mg/dL Magnesium (1.6-2.3) mg/dL Troponin I (0.000-0.034) ng/mL 04/27/22 04/28/22 04/28/22 Range/Units 23:04 00:10 01:55 RBC 2.35 L (3.80-5.40) m/uL Hgb 7.1 L (11.4-16.0) gm/dL Hct 22.3 L (34.0-46.0) % RDW 17.2 H (11.5-15.5) % Plt Count 142 L (150-450) k/uL Lymphocytes # (1.0-4.8) k/uL Lymphocytes # (Manual) 0.81 L (1.0-4.8) k/uL Metamyelocytes # (Man) 0.09 H (0) k/uL ABG Total CO2 (19-24) mmol/L ABG O2 Saturation (94-97) % Carbon Dioxide (22-30) mmol/L BUN (7-17) mg/dL Creatinine (0.52-1.04) mg/dL Glucose (74-99) mg/dL POC Glucose (mg/dL) 345 H 244 H (70-110) mg/dL Magnesium (1.6-2.3) mg/dL Troponin I (0.000-0.034) ng/mL 04/28/22 04/28/22 04/28/22 Range/Units 01:55 02:20 02:22 RBC (3.80-5.40) m/uL Hgb (11.4-16.0) gm/dL Hct (34.0-46.0) % RDW (11.5-15.5) % Plt Count (150-450) k/uL Lymphocytes # (1.0-4.8) k/uL Lymphocytes # (Manual) (1.0-4.8) k/uL Metamyelocytes # (Man) (0) k/uL ABG Total CO2 (19-24) mmol/L ABG O2 Saturation (94-97) % Carbon Dioxide (22-30) mmol/L BUN 26 H (7-17) mg/dL Creatinine 2.75 H (0.52-1.04) mg/dL Glucose 48 L* (74-99) mg/dL POC Glucose (mg/dL) 47 L 46 L (70-110) mg/dL Magnesium (1.6-2.3) mg/dL Troponin I (0.000-0.034) ng/mL 04/28/22 04/28/22 04/28/22 Range/Units 02:44 03:56 05:49 RBC (3.80-5.40) m/uL Hgb (11.4-16.0) gm/dL Hct (34.0-46.0) % RDW (11.5-15.5) % Plt Count (150-450) k/uL Lymphocytes # (1.0-4.8) k/uL Lymphocytes # (Manual) (1.0-4.8) k/uL Metamyelocytes # (Man) (0) k/uL ABG Total CO2 (19-24) mmol/L ABG O2 Saturation (94-97) % Carbon Dioxide (22-30) mmol/L BUN 30 H (7-17) mg/dL Creatinine 2.97 H (0.52-1.04) mg/dL Glucose 54 L (74-99) mg/dL POC Glucose (mg/dL) 212 H 190 H (70-110) mg/dL Magnesium 2.5 H (1.6-2.3) mg/dL Troponin I (0.000-0.034) ng/mL 04/28/22 04/28/22 04/28/22 Range/Units 05:49 06:04 06:44 RBC 2.23 L (3.80-5.40) m/uL Hgb 7.2 L (11.4-16.0) gm/dL Hct 21.5 L (34.0-46.0) % RDW 16.7 H (11.5-15.5) % Plt Count 128 L (150-450) k/uL Lymphocytes # 0.8 L (1.0-4.8) k/uL Lymphocytes # (Manual) (1.0-4.8) k/uL Metamyelocytes # (Man) (0) k/uL ABG Total CO2 (19-24) mmol/L ABG O2 Saturation (94-97) % Carbon Dioxide (22-30) mmol/L BUN (7-17) mg/dL Creatinine (0.52-1.04) mg/dL Glucose (74-99) mg/dL POC Glucose (mg/dL) 58 L 140 H (70-110) mg/dL Magnesium (1.6-2.3) mg/dL Troponin I (0.000-0.034) ng/mL 04/28/22 04/28/22 Range/Units 07:59 09:17 RBC (3.80-5.40) m/uL Hgb (11.4-16.0) gm/dL Hct (34.0-46.0) % RDW (11.5-15.5) % Plt Count (150-450) k/uL Lymphocytes # (1.0-4.8) k/uL Lymphocytes # (Manual) (1.0-4.8) k/uL Metamyelocytes # (Man) (0) k/uL ABG Total CO2 (19-24) mmol/L ABG O2 Saturation (94-97) % Carbon Dioxide (22-30) mmol/L BUN (7-17) mg/dL Creatinine (0.52-1.04) mg/dL Glucose (74-99) mg/dL POC Glucose (mg/dL) 215 H 188 H (70-110) mg/dL Magnesium (1.6-2.3) mg/dL Troponin I (0.000-0.034) ng/mL Microbiology - Last 24 Hours (Table) 04/26/22 18:16 Gram Stain - Preliminary Sputum Sputum Culture - Preliminary 11/27/22 20:51 Blood Culture - Preliminary Blood No Growth after 72 hours Assessment and Plan Assessment: Impression: Acute hypoxic and hypercapnic respiratory failure secondary to cardiac arrest suspect cardiac arrest from hyperkalemia, potassium was 8.9, this is most likely secondary to her end-stage renal disease. Prior to that on 04/24 and her potassium was 5.9 Acute COVID-19 infection, doubt COVID-19 pneumonia. Strongly suspect aspiration pneumonia Fluid overload secondary to end-stage renal disease History of CVA/TIA Type 2 diabetes. End-stage renal disease, on hemodialysis. Previous history of cardiac arrest. History of diabetic retinopathy and neuropathy History of depression Status post extubation on 04/27/22 Nutritional support/enteral feeding Continue BiPAP Continue hemodialysis Continue antibiotics for presumptive aspiration pneumonia Continue COVID-19 cocktail Continue to monitor electrolytes and sugars Continue to monitor in the ICU We will continue to follow Time with Patient: Less than 30
[2022-04-28] MEDS: ENOXAPARIN 30 MG/0.3 ML SYRINGE SQ SCH (11:50)
[2022-04-28] MEDS: PIPERACILLIN-TAZOBACTAM 3.375 GM in SODIUM CHLORIDE 0.9% 100 ML IVPB SCH ×2 (11:50→20:51)
[2022-04-28] MEDS: PANTOPRAZOLE 40 MG/10 ML VIAL IVP SCH (11:51)
[2022-04-28 12:00] LABS: Glucose,Whole Blood 176 mg/dL (70-110)
[2022-04-28] MEDS: hydrALAZINE HCL 50 MG TAB PO SCH ×3 (12:59→21:04)
[2022-04-28 13:17] LABS: Glucose,Whole Blood 209 mg/dL (70-110)
[2022-04-28] MEDS: ASPIRIN 81 MG PO SCH (13:28)
[2022-04-28] MEDS: TORSEMIDE 20 MG TAB PO SCH (13:28)
[2022-04-28 14:14] LABS: Glucose,Whole Blood 232 mg/dL (70-110)
[2022-04-28 15:28] LABS: Glucose,Whole Blood 198 mg/dL (70-110)
[2022-04-28 16:30] LABS: Glucose,Whole Blood 187 mg/dL (70-110)
[2022-04-28 18:06] LABS: Glucose,Whole Blood 128 mg/dL (70-110)
[2022-04-28 19:02] LABS: Glucose,Whole Blood 158 mg/dL (70-110)
[2022-04-28 20:07] LABS: Glucose,Whole Blood 272 mg/dL (70-110)
[2022-04-28 21:11] LABS: Glucose,Whole Blood 290 mg/dL (70-110)
[2022-04-28 22:34] LABS: Glucose,Whole Blood 280 mg/dL (70-110)
--- NOTE | 2022-04-28 22:59 | PN ---
PROGRESS NOTE HISTORY OF PRESENT ILLNESS: Patsy is a 31-year-old lady with end-stage renal disease, on hemodialysis, COVID infection, who is admitted to ICU following a cardiorespiratory arrest on the floor. The patient was extubated yesterday. She is on nasal cannula with BiPAP. The patient is undergoing hemodialysis. PHYSICAL EXAMINATION: VITAL SIGNS: Heart rate is 76 beats per minute, blood pressure is 140/72, respiratory rate is 20. CHEST: Reveals diminished air entry at the bases. HEART: Reveals first and second heart sounds. No gallop. EXTREMITIES: Did not reveal any edema. LABORATORY DATA: Labs showed that the BUN is 30, creatinine is 2.9, potassium is 4.3. ASSESSMENT: End-stage renal disease, on hemodialysis, status post cardiorespiratory arrest, probably related to excess morphine. PLAN: We will continue current supportive care. EMILY / KYAW: [id number] /
[2022-04-28 23:42] LABS: Glucose,Whole Blood 185 mg/dL (70-110)
[2022-04-29 00:43] LABS: Glucose,Whole Blood 139 mg/dL (70-110)
[2022-04-29 01:59] LABS: Glucose,Whole Blood 197 mg/dL (70-110)
[2022-04-29] MEDS: DEXAMETHASONE SOD PHOSPHATE 10 MG/ML 1 ML VIAL IVP SCH ×4 (02:11→18:44)
[2022-04-29 02:54] LABS: Glucose,Whole Blood 227 mg/dL (70-110)
[2022-04-29 03:33] LABS: Glucose,Whole Blood 239 mg/dL (70-110)
[2022-04-29 04:39] LABS: Glucose,Whole Blood 218 mg/dL (70-110)
[2022-04-29 05:22] LABS: Glucose,Whole Blood 181 mg/dL (70-110)
[2022-04-29 05:57] LABS: Glucose,Whole Blood 144 mg/dL (70-110)
[2022-04-29 06:54] LABS: HCT 23.4 % (34.0-46.0); HGB 7.6 gm/dL (11.4-16.0); Hypochromasia Slight; MCH 31.2 pg (25.0-35.0); MCHC 32.7 g/dL (31.0-37.0); MCV 95.5 fL (80.0-100.0); Mean Platelet Volume 10.2; Platelet Count 161 k/uL (150-450); RBC 2.45 m/uL (3.80-5.40); WBC 8.4 k/uL (3.8-10.6)
[2022-04-29 06:59] LABS: Glucose,Whole Blood 110 mg/dL (70-110)
[2022-04-29 07:08] LABS: Albumin 3.3 g/dL (3.5-5.0); Magnesium 2.4 mg/dL (1.6-2.3); Total Bilirubin 0.6 mg/dL (0.2-1.3); Total Protein 5.7 g/dL (6.3-8.2)
[2022-04-29 08:04] LABS: Glucose,Whole Blood 139 mg/dL (70-110)
[2022-04-29] MEDS: carvediloL 12.5 MG TAB PO SCH ×2 (08:07→17:44)
--- NOTE | 2022-04-29 08:39 | PN ---
PROGRESS NOTE DATE OF SERVICE: 04/27/2022 CHIEF COMPLAINT: Status post cardiac arrest. HISTORY OF PRESENT ILLNESS: This lady arrested yesterday and was found to have a potassium over 8. She is resuscitated now. She is in ICU on ventilator. PHYSICAL EXAMINATION: VITAL SIGNS: Blood pressure is 132/64 with a pulse of 125 and regular. LUNGS: Breath sounds are heard bilaterally and perfusion is good. IMPRESSION: 1. Status post cardiac arrest secondary to hyperkalemia. 2. Stage 5 chronic kidney disease. 3. Hypertension. 4. Uncontrolled type 1 diabetes mellitus. PLAN: Continue to follow with Nephrology and Intensive Medicine while she is in the ICU. MMODL / IJN: [id number] /
[2022-04-29 09:12] LABS: Glucose,Whole Blood 377 mg/dL (70-110)
[2022-04-29] MEDS: ENOXAPARIN 30 MG/0.3 ML SYRINGE SQ SCH (09:21)
[2022-04-29] MEDS: hydrALAZINE HCL 50 MG TAB PO SCH ×2 (09:21→16:21)
[2022-04-29] MEDS: cloNIDine HCL 0.1 MG TAB PO SCH ×3 (09:21→22:04)
[2022-04-29] MEDS: PANTOPRAZOLE 40 MG/10 ML VIAL IVP SCH (09:21)
[2022-04-29] MEDS: ASPIRIN 81 MG PO SCH (09:21)
[2022-04-29] MEDS: buPROPion SR 150 MG TABLET.ER PO SCH ×2 (09:22→22:03)
[2022-04-29] MEDS: TORSEMIDE 20 MG TAB PO SCH (09:22)
[2022-04-29] MEDS: DULoxetine HCL 30 MG CAPSULE.DR PO SCH ×2 (09:22→22:03)
[2022-04-29] MEDS: PIPERACILLIN-TAZOBACTAM 3.375 GM in SODIUM CHLORIDE 0.9% 100 ML IVPB SCH ×2 (09:32→22:03)
--- NOTE | 2022-04-29 09:39 | PN ---
PROGRESS NOTE DATE OF SERVICE: 04/28/2022 CHIEF COMPLAINT: Status post cardiac arrest. HISTORY OF PRESENT ILLNESS: This lady is extubated, now awake and alert. Her mother who is her guardian had made her a DNR, but the patient is now awake and alert and wants to be restored to a full code status and this will be done. She is being dialyzed now. REVIEW OF SYSTEMS: She is not complaining of any headache or focal neurologic problems or any losses. PHYSICAL EXAMINATION: VITAL SIGNS: Normal. CHEST: Clear. CARDIAC: Normal. ABDOMEN: Soft, nontender. IMPRESSION: 1. Cardiac arrest secondary to hyperkalemia. 2. Stage 5 chronic kidney disease. 3. Uncontrolled diabetes. 4. Uncontrolled hypertension. PLAN: Continue with dialysis and start monitoring her potassium more closely. can see her potassium could have gone up to 8 when she was dialyzed the day before. MMODL / IJN: [id number] /
[2022-04-29 10:12] LABS: Glucose,Whole Blood 454 mg/dL (70-110)
[2022-04-29] MEDS ORDERED: diphenhydrAMINE 50 MG/ML 1 ML VIAL IVP STA (10:12)
[2022-04-29] MEDS: INSULIN REGULAR 100 UNIT in SODIUM CHLORIDE 0.9% 100 ML IV SCH ×2 (10:24→22:27)
[2022-04-29] MEDS: diphenhydrAMINE 50 MG/ML 1 ML VIAL IVP PRN (10:24)
[2022-04-29 11:15] LABS: Glucose,Whole Blood 306 mg/dL (70-110)
--- NOTE | 2022-04-29 11:26 | P.PN ---
Subjective Progress Note Date: 04/29/22 Principal diagnosis: Cardiac arrest This is a 31-year-old female with history of chronic kidney disease/renal failure on hemodialysis. History of previous CVA and previous cardiac arrest, patient presented to the ER on 04/24/22 presented mostly with 1 week history of cough, shortness of breath, and chest pain upon coughing. Pain was described by the ER physician as sharp, no radiation, pain was not associated with diaphoresis, no nausea no vomiting no abdominal pain. Patient had her last hemodialysis 2 days prior. Chest x-ray upon her initial evaluation showed evidence of pulmonary vascular congestion consistent with pulmonary edema/fluid overload, patient tested positive for COVID-19 infection, patient had low pulse oximetry on her initial presentation 85% on room air, and went up to 93% on 2 L. Patient was admitted, and she was seen by nephrology on consultation on 04/25 and she was also seen by her admitting physician on 04/26. On 04/26, at around 1800 p.m., CARLA EDWARD was called overhead. Sound physician responded to the code, patient was being resuscitated upon his arrival. Patient was in asystole and she received a total of 4 epinephrines, 2 bicarb, 1 calcium given patient was intubated however she was noted to have emesis during intubation, and she may have had visible aspiration. Cold lasted about 7 minutes, patient was sent to the ICU on mechanical ventilation. Her potassium was above 8, nephrology was notified, and the patient received treatment for heart high potassium and she received immediate hemodialysis while in the ICU. I was notified about this patient shortly after she arrived to the ICU, and I recommended ventilatory supp ort, adjusted her ventilator settings she initially required high FiO2 and high PEEP. She required more sedation utilizing propofol and Versed because she was still agitated and restless with propofol alone at maximal dose. Recommended Zosyn empirically for presumptive aspiration pneumonia recommended GI and DVT prophylaxis, immediate hemodialysis by nephrology, and reviewed her ABG, and her vent settings were adjusted accordingly. Patient is now in the ICU on mechanical ventilation, she is on assist control rate of 28th of volume 400 FiO2 40% and PEEP of 12. ABG showed a pO2 of 143 pCO2 41 pH of 7.38. And I recommended cutting down the PEEP down to 5, and kept her on 40% FiO2. Patient will be receiving more hemodialysis today. Hemoglobin is down to 6.4 and she'll be receiving 1 unit of packed RBCs. She will also receive hemodialysis again today. She had a temp of 103, cultures are pending and I'm recommending Zosyn for now for presumptive aspiration pneumonia. Patient is on Versed at 7 mg per hour, propofol at 75 mcg/kg/m, her IV fluids at KVO, she is also on insulin drip. This morning labs showed hemoglobin of 6.4. Normal electrolytes, bicarb is normal, BUN is 32 creatinine 3.47. As mentioned earlier patient had positive PCR for COVID-19 infection Reevaluated today on 04/28/22, patient was extubated yesterday, and she was placed initially on nasal cannula, however at night she was transitioned to BiPAP. Presently on BiPAP 05/02/100%, and I cut down her FiO2 to 50%. Patient is undergoing hemodialysis. Patient is also on insulin drip. Patient is tolerating BiPAP quite well, she is arousable, follows simple instructions, does not seem to be in distress. Her IV fluids at KVO. Chest x-ray showed evidence of pulmonary edema. Underlying pneumonia is not entirely ruled out, considering the patient did have witnessed aspiration. However her chest x-ray will likely improve post dialysis. WBC count today is 8.8 hemoglobin is 7.2. Electrolytes are normal BUN is 30 creatinine 2.97 Reevaluated today on 04/29/22, patient remains in the ICU, remains on 3 L nasal cannula with O2 sat she is 100%, she is receiving hemodialysis this morning, she had 4 L of fluid removed on 04/28. Remains empirically on Zosyn for presumptive aspiration pneumonia she is now on insulin at 5.42 units per hour to control her blood sugars. Otherwise the patient is doing well, relatively asymptomatic. Hemoglobin is 7.6 WBC count is 8.4, basic metabolic profile is normal bicarb is 24 lites are normal Objective - Vital Signs Vital signs: Vital Signs Temp 97.1 F L 04/29/22 08:00 Pulse 71 04/29/22 10:00 Resp 26 H 04/29/22 10:00 BP 118/67 04/29/22 09:00 Pulse Ox 97 04/29/22 10:00 FiO2 50 04/28/22 12:00 Intake & Output 04/28/22 04/29/2222 18:59 06:59 18:59 Intake Total 321.774 328.677 533.750 Output Total 4000 0 0 Balance -3678.226 328.677 533.750 Weight 43.1 kg Intake: IV 100 100 Piperacillin-Tazobactam 3 100 100 .375 gm In Sodium Chloride 0.9% 100 ml @ 25 mls/hr IVPB Q12HR [facility] Rx #:[id number] Intake, IV Titration 21.774 28.677 33.750 Amount Insulin Regular 100 unit 21.774 28.677 33.750 In Sodium Chloride 0.9% 100 ml @ Titrate IV .Q0M [facility] Rx#:[id number] Oral 200 400 Hemodialysis 300 Output: Urine 0 0 0 Hemodialysis 4000 - Exam General: Revealed a 51-year-old female in no distress, on 3 L nasal cannula Head: Atraumatic, normocephalic. HEENT:[Neck is supple.] [No neck masses.] [No thyromegaly.] [No JVD.] Dry mucous membranes. Chest: Symmetrical chest expansion crackles at the bases. No rhonchi and no wheezes Cardiac Exam: [Normal S1 and S2, no S3 gallop, 2/6 systolic murmur thought the precordium. Abdomen: [Soft, nontender, no megaly, no rebound, no guarding, normal bowel sounds.] Extremities: [No clubbing, no edema, no cyanosis.] Neurological Exam: Alert oriented 3 deficit. Psychiatric: Depressed mood and flat affect, normal mental status - Labs CBC & Chem 7: 04/29/22 06:21 04/29/22 06:21 Labs: Abnormal Lab Results - Last 24 Hours (Table) 04/28/22 04/28/22 04/28/22 Range/Units 11:57 13:15 14:12 RBC (3.80-5.40) m/uL Hgb (11.4-16.0) gm/dL Hct (34.0-46.0) % RDW (11.5-15.5) % BUN (7-17) mg/dL Creatinine (0.52-1.04) mg/dL Glucose (74-99) mg/dL POC Glucose (mg/dL) 176 H 209 H 232 H (70-110) mg/dL Magnesium (1.6-2.3) mg/dL ALT (4-34) U/L Alkaline Phosphatase (38-126) U/L Total Protein (6.3-8.2) g/dL Albumin (3.5-5.0) g/dL 04/28/22 04/28/22 04/28/22 Range/Units 15:26 16:29 18:05 RBC (3.80-5.40) m/uL Hgb (11.4-16.0) gm/dL Hct (34.0-46.0) % RDW (11.5-15.5) % BUN (7-17) mg/dL Creatinine (0.52-1.04) mg/dL Glucose (74-99) mg/dL POC Glucose (mg/dL) 198 H 187 H 128 H (70-110) mg/dL Magnesium (1.6-2.3) mg/dL ALT (4-34) U/L Alkaline Phosphatase (38-126) U/L Total Protein (6.3-8.2) g/dL Albumin (3.5-5.0) g/dL 04/28/22 04/28/22 04/28/22 Range/Units 19:00 20:05 21:09 RBC (3.80-5.40) m/uL Hgb (11.4-16.0) gm/dL Hct (34.0-46.0) % RDW (11.5-15.5) % BUN (7-17) mg/dL Creatinine (0.52-1.04) mg/dL Glucose (74-99) mg/dL POC Glucose (mg/dL) 158 H 272 H 290 H (70-110) mg/dL Magnesium (1.6-2.3) mg/dL ALT (4-34) U/L Alkaline Phosphatase (38-126) U/L Total Protein (6.3-8.2) g/dL Albumin (3.5-5.0) g/dL 04/28/22 04/28/22 04/29/22 Range/Units 22:33 23:40 00:42 RBC (3.80-5.40) m/uL Hgb (11.4-16.0) gm/dL Hct (34.0-46.0) % RDW (11.5-15.5) % BUN (7-17) mg/dL Creatinine (0.52-1.04) mg/dL Glucose (74-99) mg/dL POC Glucose (mg/dL) 280 H 185 H 139 H (70-110) mg/dL Magnesium (1.6-2.3) mg/dL ALT (4-34) U/L Alkaline Phosphatase (38-126) U/L Total Protein (6.3-8.2) g/dL Albumin (3.5-5.0) g/dL 04/29/22 04/29/22 04/29/22 Range/Units 01:57 02:53 03:31 RBC (3.80-5.40) m/uL Hgb (11.4-16.0) gm/dL Hct (34.0-46.0) % RDW (11.5-15.5) % BUN (7-17) mg/dL Creatinine (0.52-1.04) mg/dL Glucose (74-99) mg/dL POC Glucose (mg/dL) 197 H 227 H 239 H (70-110) mg/dL Magnesium (1.6-2.3) mg/dL ALT (4-34) U/L Alkaline Phosphatase (38-126) U/L Total Protein (6.3-8.2) g/dL Albumin (3.5-5.0) g/dL 04/29/22 04/29/22 04/29/22 Range/Units 04:36 05:21 05:55 RBC (3.80-5.40) m/uL Hgb (11.4-16.0) gm/dL Hct (34.0-46.0) % RDW (11.5-15.5) % BUN (7-17) mg/dL Creatinine (0.52-1.04) mg/dL Glucose (74-99) mg/dL POC Glucose (mg/dL) 218 H 181 H 144 H (70-110) mg/dL Magnesium (1.6-2.3) mg/dL ALT (4-34) U/L Alkaline Phosphatase (38-126) U/L Total Protein (6.3-8.2) g/dL Albumin (3.5-5.0) g/dL 04/29/22 04/29/22 04/29/22 Range/Units 06:21 06:21 08:01 RBC 2.45 L (3.80-5.40) m/uL Hgb 7.6 L (11.4-16.0) gm/dL Hct 23.4 L (34.0-46.0) % RDW 16.0 H (11.5-15.5) % BUN 44 H (7-17) mg/dL Creatinine 2.93 H (0.52-1.04) mg/dL Glucose 128 H (74-99) mg/dL POC Glucose (mg/dL) 139 H (70-110) mg/dL Magnesium 2.4 H (1.6-2.3) mg/dL ALT 144 H (4-34) U/L Alkaline Phosphatase 336 H (38-126) U/L Total Protein 5.7 L (6.3-8.2) g/dL Albumin 3.3 L (3.5-5.0) g/dL 04/29/22 04/29/22 04/29/22 Range/Units 09:10 10:10 11:14 RBC (3.80-5.40) m/uL Hgb (11.4-16.0) gm/dL Hct (34.0-46.0) % RDW (11.5-15.5) % BUN (7-17) mg/dL Creatinine (0.52-1.04) mg/dL Glucose (74-99) mg/dL POC Glucose (mg/dL) 377 H 454 H 306 H (70-110) mg/dL Magnesium (1.6-2.3) mg/dL ALT (4-34) U/L Alkaline Phosphatase (38-126) U/L Total Protein (6.3-8.2) g/dL Albumin (3.5-5.0) g/dL Microbiology - Last 24 Hours (Table) 04/26/22 18:16 Gram Stain - Final Sputum Sputum Culture - Final 04/27/22 22:56 Blood Culture - Preliminary Blood No Growth after 24 hours 04/24/22 20:51 Blood Culture - Preliminary Blood No Growth after 96 hours Assessment and Plan Assessment: Impression: Acute hypoxic and hypercapnic respiratory failure secondary to cardiac arrest suspect cardiac arrest from hyperkalemia, potassium was 8.9, this is most likely secondary to her end-stage renal disease. Prior to that on 04/24 and her pota ssium was 5.9 Acute COVID-19 infection, doubt COVID-19 pneumonia. Strongly suspect aspiration pneumonia Fluid overload secondary to end-stage renal disease History of CVA/TIA Type 2 diabetes. End-stage renal disease, on hemodialysis. Previous history of cardiac arrest. History of diabetic retinopathy and neuropathy History of depression Status post extubation on 04/27/22 Nutritional support/enteral feeding Continue oxygen and titrate accordingly Continue hemodialysis, patient is undergoing hemodialysis today. Continue antibiotics for presumptive aspiration pneumonia, presently on Zosyn. Continue COVID-19 cocktail Continue to monitor electrolytes and sugars, continue insulin drip for now. Continue to monitor in the ICU We will continue to follow Time with Patient: Less than 30
[2022-04-29] MEDS: HYDROmorphone 0.5 MG/0.5 ML SYRINGE IVP PRN ×2 (11:47→18:44)
--- NOTE | 2022-04-29 11:57 | PN ---
PROGRESS NOTE SUBJECTIVE: Patsy is a 31-year-old lady with complex and multiple medical problems, including end-stage renal disease on hemodialysis, hypertension, who was admitted to hospital with coronavirus infection and while on the floor had a cardiac arrest either due to a sedative that she received or due to hyperkalemia. She is extubated, currently doing well and is being dialyzed. Doing well, remains in sinus rhythm, did not have any episodes of tachy or bradyarrhythmias. OBJECTIVE: GENERAL: Comfortable at rest. VITAL SIGNS: Stable. CHEST: Reveals diminished air entry at the bases. HEART: Reveals first and second heart sounds, no gallop. EXTREMITIES: Did not reveal any edema. LABS: Show a hemoglobin of 7.6, potassium is 4, BUN is 44, creatinine is 2.9. ASSESSMENT: 1. Status post cardiorespiratory arrest. 2. End-stage renal disease, on hemodialysis. 3. Coronavirus infection. PLAN: Will continue current medications. Continue with the hemodialysis. MMODL / IJN: [id number] /
[2022-04-29 12:04] LABS: Glucose,Whole Blood 154 mg/dL (70-110)
[2022-04-29] MEDS: rOPINIRole HCL 4 MG TABLET PO SCH ×2 (12:48→22:03)
[2022-04-29 13:16] LABS: Glucose,Whole Blood 88 mg/dL (70-110)
[2022-04-29 14:01] LABS: Glucose,Whole Blood 126 mg/dL (70-110)
[2022-04-29 15:07] LABS: Glucose,Whole Blood 243 mg/dL (70-110)
--- NOTE | 2022-04-29 16:00 | P.PN ---
Subjective Patient is seen for follow-up for end-stage renal disease. She was admitted to the hospital with shortness of breath and increased weakness. Patient tested positive for covid 19 She was also volume overloaded and has had extra hemodialysis treatments. Patient had a cardiac arrest on 04/26/2022. Potassium was elevated at 8.9 and patient had also received opiates. Patient has had emergency dialysis and she was successfully extubated. Diarrhea has improved She is seen on hemodialysis. Blood pressure is in the 120s s for systolic and the UF goal is set for about 2 L today. Cozaar was discontinued. Patient needs to be maintained off of CHANDA inhibitor's or angiotensin receptor blockers given her history of hyperkalemia Objective - Vital Signs Vital signs: Vital Signs Temp 98.0 F 04/29/22 14:27 Pulse 72 04/29/22 15:00 Resp 15 04/29/22 15:00 BP 101/62 04/29/22 15:00 Pulse Ox 99 04/29/22 15:00 FiO2 50 04/28/22 12:00 Intake & Output 04/28/22 04/29/22 04/29/22 18:59 06:59 18:59 Intake Total 321.774 712.635 2898.485 Output Total 4000 0 2500 Balance -3678.226 328.677 -1114.515 Weight 43.1 kg 43.1 kg Intake: IV 100 130 .9 @ 10 30 Piperacillin-Tazobactam 3 100 100 .375 gm In Sodium Chloride 0.9% 100 ml @ 25 mls/hr IVPB Q12HR [facility] Rx #:[id number] Intake, IV Titration 21.774 28.677 55.485 Amount Insulin Regular 100 unit 21.774 28.677 55.485 In Sodium Chloride 0.9% 100 ml @ Titrate IV .Q0M [facility] Rx#:[id number] Oral 200 700 Hemodialysis 300 500 Output: Urine 0 0 0 Hemodialysis 4000 2500 - Exam Patient is seen on hemodialysis Patient is tolerating her treatment well. Currently sitting up in bed Examination lower extremities shows no significant edema - Labs CBC & Chem 7: 04/29/22 06:21 04/29/22 06:21 Labs: Abnormal Lab Results - Last 24 Hours (Table) 04/28/22 04/28/22 04/28/22 Range/Units 16:29 18:05 19:00 RBC (3.80-5.40) m/uL Hgb (11.4-16.0) gm/dL Hct (34.0-46.0) % RDW (11.5-15.5) % BUN (7-17) mg/dL Creatinine (0.52-1.04) mg/dL Glucose (74-99) mg/dL POC Glucose (mg/dL) 187 H 128 H 158 H (70-110) mg/dL Magnesium (1.6-2.3) mg/dL ALT (4-34) U/L Alkaline Phosphatase (38-126) U/L Total Protein (6.3-8.2) g/dL Albumin (3.5-5.0) g/dL 04/28/22 04/28/22 04/28/22 Range/Units 20:05 21:09 22:33 RBC (3.80-5.40) m/uL Hgb (11.4-16.0) gm/dL Hct (34.0-46.0) % RDW (11.5-15.5) % BUN (7-17) mg/dL Creatinine (0.52-1.04) mg/dL Glucose (74-99) mg/dL POC Glucose (mg/dL) 272 H 290 H 280 H (70-110) mg/dL Magnesium (1.6-2.3) mg/dL ALT (4-34) U/L Alkaline Phosphatase (38-126) U/L Total Protein (6.3-8.2) g/dL Albumin (3.5-5.0) g/dL 04/28/22 04/29/22 04/29/22 Range/Units 23:40 00:42 01:57 RBC (3.80-5.40) m/uL Hgb (11.4-16.0) gm/dL Hct (34.0-46.0) % RDW (11.5-15.5) % BUN (7-17) mg/dL Creatinine (0.52-1.04) mg/dL Glucose (74-99) mg/dL POC Glucose (mg/dL) 185 H 139 H 197 H (70-110) mg/dL Magnesium (1.6-2.3) mg/dL ALT (4-34) U/L Alkaline Phosphatase (38-126) U/L Total Protein (6.3-8.2) g/dL Albumin (3.5-5.0) g/dL 04/29/22 04/29/22 04/29/22 Range/Units 02:53 03:31 04:36 RBC (3.80-5.40) m/uL Hgb (11.4-16.0) gm/dL Hct (34.0-46.0) % RDW (11.5-15.5) % BUN (7-17) mg/dL Creatinine (0.52-1.04) mg/dL Glucose (74-99) mg/dL POC Glucose (mg/dL) 227 H 239 H 218 H (70-110) mg/dL Magnesium (1.6-2.3) mg/dL ALT (4-34) U/L Alkaline Phosphatase (38-126) U/L Total Protein (6.3-8.2) g/dL Albumin (3.5-5.0) g/dL 04/29/22 04/29/22 04/29/22 Range/Units 05:21 05:55 06:21 RBC 2.45 L (3.80-5.40) m/uL Hgb 7.6 L (11.4-16.0) gm/dL Hct 23.4 L (34.0-46.0) % RDW 16.0 H (11.5-15.5) % BUN (7-17) mg/dL Creatinine (0.52-1.04) mg/dL Glucose (74-99) mg/dL POC Glucose (mg/dL) 181 H 144 H (70-110) mg/dL Magnesium (1.6-2.3) mg/dL ALT (4-34) U/L Alkaline Phosphatase (38-126) U/L Total Protein (6.3-8.2) g/dL Albumin (3.5-5.0) g/dL 04/29/22 04/29/22 04/29/22 Range/Units 06:21 08:01 09:10 RBC (3.80-5.40) m/uL Hgb (11.4-16.0) gm/dL Hct (34.0-46.0) % RDW (11.5-15.5) % BUN 44 H (7-17) mg/dL Creatinine 2.93 H (0.52-1.04) mg/dL Glucose 128 H (74-99) mg/dL POC Glucose (mg/dL) 139 H 377 H (70-110) mg/dL Magnesium 2.4 H (1.6-2.3) mg/dL ALT 144 H (4-34) U/L Alkaline Phosphatase 336 H (38-126) U/L Total Protein 5.7 L (6.3-8.2) g/dL Albumin 3.3 L (3.5-5.0) g/dL 04/29/22 04/29/22 04/29/22 Range/Units 10:10 11:14 12:03 RBC (3.80-5.40) m/uL Hgb (11.4-16.0) gm/dL Hct (34.0-46.0) % RDW (11.5-15.5) % BUN (7-17) mg/dL Creatinine (0.52-1.04) mg/dL Glucose (74-99) mg/dL POC Glucose (mg/dL) 454 H 306 H 154 H (70-110) mg/dL Magnesium (1.6-2.3) mg/dL ALT (4-34) U/L Alkaline Phosphatase (38-126) U/L Total Protein (6.3-8.2) g/dL Albumin (3.5-5.0) g/dL 04/29/22 04/29/22 Range/Units 13:59 15:06 RBC (3.80-5.40) m/uL Hgb (11.4-16.0) gm/dL Hct (34.0-46.0) % RDW (11.5-15.5) % BUN (7-17) mg/dL Creatinine (0.52-1.04) mg/dL Glucose (74-99) mg/dL POC Glucose (mg/dL) 126 H 243 H (70-110) mg/dL Magnesium (1.6-2.3) mg/dL ALT (4-34) U/L Alkaline Phosphatase (38-126) U/L Total Protein (6.3-8.2) g/dL Albumin (3.5-5.0) g/dL Microbiology - Last 24 Hours (Table) 04/26/22 18:16 Gram Stain - Final Sputum Sputum Culture - Final 04/27/22 22:56 Blood Culture - Preliminary Blood No Growth after 24 hours 04/24/22 20:51 Blood Culture - Preliminary Blood No Growth after 96 hours Assessment and Plan Assessment: 1. End-stage renal disease on hemodialysis on a Monday schedule 2. Volume overload 3. COVID-19 PCR positive 4. CK D mineral bone disorder 5. Uncontrolled hypertension partly related to volume overload, improved with ultrafiltration 6. Status post cardiac arrest associated with hyperkalemia as well as respiratory depression from opiates. 7. Hyperkalemia status post emergency treatment last night. Patient's blood sugar was also significantly elevated at 562 causing significant shift of potassium. This has improved with insulin drip and hemodialysis. 8. Diarrhea, C. diff toxin negative. Currently improved Plan: Possible hemodialysis in a.m. based on volume status. Continue off of CHANDA inhibitor's and angiotensin receptor blockers
[2022-04-29 16:12] LABS: Glucose,Whole Blood 308 mg/dL (70-110)
[2022-04-29] MEDS: LORazepam 1 MG TAB PO PRN (16:35)
[2022-04-29 17:07] LABS: Glucose,Whole Blood 287 mg/dL (70-110)
[2022-04-29 18:50] LABS: Glucose,Whole Blood 181 mg/dL (70-110)
[2022-04-29 20:53] LABS: Glucose,Whole Blood 44 mg/dL (70-110)
[2022-04-29] MEDS: DEXTROSE 50% SYRINGE 50 ML IVP PRN ×2 (21:00→21:31)
[2022-04-29 21:26] LABS: Glucose,Whole Blood 190 mg/dL (70-110)
[2022-04-29 22:25] LABS: Glucose,Whole Blood 278 mg/dL (70-110)
[2022-04-30 00:11] LABS: Glucose,Whole Blood 226 mg/dL (70-110)
[2022-04-30 01:13] LABS: Glucose,Whole Blood 267 mg/dL (70-110)
[2022-04-30] MEDS: hydrALAZINE HCL 50 MG TAB PO SCH ×4 (01:32→20:24)
[2022-04-30] MEDS: DEXAMETHASONE SOD PHOSPHATE 10 MG/ML 1 ML VIAL IVP SCH ×5 (01:32→23:14)
[2022-04-30] MEDS: HYDROmorphone 0.5 MG/0.5 ML SYRINGE IVP PRN ×3 (01:33→22:12)
[2022-04-30 02:10] LABS: Glucose,Whole Blood 129 mg/dL (70-110)
[2022-04-30 03:11] LABS: Glucose,Whole Blood 206 mg/dL (70-110)
[2022-04-30] MEDS: LORazepam 1 MG TAB PO PRN ×2 (04:00→14:33)
[2022-04-30 04:10] LABS: Glucose,Whole Blood 262 mg/dL (70-110)
[2022-04-30 05:12] LABS: Glucose,Whole Blood 268 mg/dL (70-110)
[2022-04-30 06:36] LABS: Glucose,Whole Blood 188 mg/dL (70-110)
[2022-04-30 06:58] LABS: Anisocytosis Slight; Basophils % (A) 0 %; Eosinophils % (A) 0 %; HGB 8.4 gm/dL (11.4-16.0); Hypochromasia Moderate; Lymphocytes # (A) 0.3 k/uL (1.0-4.8); Lymphocytes % (A) 5 %; MCH 30.6 pg (25.0-35.0); MCHC 31.1 g/dL (31.0-37.0); MCV 98.2 fL (80.0-100.0); Macrocytosis Slight; Mean Platelet Volume 9.8; Monocytes # (A) 0.3 k/uL (0-1.0); Monocytes % (A) 4 %; Neutrophils # (A) 6.1 k/uL (1.3-7.7); Neutrophils % (A) 89 %; Platelet Count 174 k/uL (150-450); RBC 2.74 m/uL (3.80-5.40); RDW 16.4 % (11.5-15.5); WBC 6.8 k/uL (3.8-10.6)
[2022-04-30 07:00] LABS: Calcium 9.2 mg/dL (8.4-10.2)
[2022-04-30] MEDS: carvediloL 12.5 MG TAB PO SCH ×2 (08:07→17:04)
[2022-04-30] MEDS: ENOXAPARIN 30 MG/0.3 ML SYRINGE SQ SCH (08:07)
[2022-04-30] MEDS: PANTOPRAZOLE 40 MG/10 ML VIAL IVP SCH (08:07)
[2022-04-30] MEDS: PIPERACILLIN-TAZOBACTAM 3.375 GM in SODIUM CHLORIDE 0.9% 100 ML IVPB SCH ×2 (08:08→20:23)
[2022-04-30] MEDS: cloNIDine HCL 0.1 MG TAB PO SCH ×3 (08:08→20:24)
[2022-04-30] MEDS: buPROPion SR 150 MG TABLET.ER PO SCH ×2 (08:08→20:24)
[2022-04-30] MEDS: DULoxetine HCL 30 MG CAPSULE.DR PO SCH ×2 (08:09→20:24)
[2022-04-30] MEDS: rOPINIRole HCL 4 MG TABLET PO SCH ×2 (08:09→20:25)
[2022-04-30] MEDS: TORSEMIDE 20 MG TAB PO SCH (08:09)
[2022-04-30] MEDS: ASPIRIN 81 MG PO SCH (08:12)
[2022-04-30] MEDS: diphenhydrAMINE 50 MG/ML 1 ML VIAL IVP PRN ×3 (08:17→20:48)
[2022-04-30 08:34] LABS: Glucose,Whole Blood 98 mg/dL (70-110)
--- NOTE | 2022-04-30 09:03 | P.PN ---
Subjective Patient is seen for follow-up for end-stage renal disease. She was admitted to the hospital with shortness of breath and increased weakness. Patient tested positive for covid 19 Evidence of volume overload on admission Patient had a cardiac arrest on 04/26/2022. Potassium was elevated at 8.9 and patient had also received opiates. Patient has had emergency dialysis and she was successfully extubated. Cozaar was discontinued. Patient needs to be maintained off of CHANDA inhibitor's or angiotensin receptor blockers given her history of hyperkalemia Patient is sitting up in bed and having breakfast. She feels significantly improved. Voice is also less hoarse today. No diarrhea. Scheduled for hemodialysis today. Objective - Vital Signs Vital signs: Vital Signs Temp 98.8 F 04/30/22 04:00 Pulse 77 04/30/22 07:00 Resp 29 H 04/30/22 07:00 BP 146/87 04/30/22 07:00 Pulse Ox 98 04/30/22 07:00 FiO2 50 04/28/22 12:00 Intake & Output 04/29/22 04/30/22 04/30/22 18:59 06:59 18:59 Intake Total 1695.277 464.978 9.617 Output Total 2500 0 0 Balance -804.723 464.978 9.617 Weight 43.1 kg Intake: IV 160 40 .9 @ 10 60 40 Piperacillin-Tazobactam 3 100 .375 gm In Sodium Chloride 0.9% 100 ml @ 25 mls/hr IVPB Q12HR [facility] Rx #:[id number] Intake, IV Titration 85.277 144.978 9.617 Amount Insulin Regular 100 unit 85.277 44.978 9.617 In Sodium Chloride 0.9% 100 ml @ Titrate IV .Q0M [facility] Rx#:[id number] Piperacillin-Tazobactam 3 100 .375 gm In Sodium Chloride 0.9% 100 ml @ 25 mls/hr IVPB Q12HR [facility] Rx #:[id number] Oral 950 280 Hemodialysis 500 Output: Urine 0 0 0 Hemodialysis 2500 - Exam Patient is sitting up in bed Alert oriented 3 No acute distress Examination of the heart S1 and S2 Examination of the lungs bilateral breath sounds are heard Abdomen is soft nontender Examination of lower extremity shows no edema - Labs CBC & Chem 7: 04/30/22 06:17 04/30/22 06:17 Labs: Abnormal Lab Results - Last 24 Hours (Table) 04/29/22 04/29/22 04/29/22 Range/Units 09:10 10:10 11:14 RBC (3.80-5.40) m/uL Hgb (11.4-16.0) gm/dL Hct (34.0-46.0) % RDW (11.5-15.5) % Lymphocytes # (1.0-4.8) k/uL BUN (7-17) mg/dL Creatinine (0.52-1.04) mg/dL Glucose (74-99) mg/dL POC Glucose (mg/dL) 377 H 454 H 306 H (70-110) mg/dL 04/29/22 04/29/22 04/29/22 Range/Units 12:03 13:59 15:06 RBC (3.80-5.40) m/uL Hgb (11.4-16.0) gm/dL Hct (34.0-46.0) % RDW (11.5-15.5) % Lymphocytes # (1.0-4.8) k/uL BUN (7-17) mg/dL Creatinine (0.52-1.04) mg/dL Glucose (74-99) mg/dL POC Glucose (mg/dL) 154 H 126 H 243 H (70-110) mg/dL 04/29/22 04/29/22 04/29/22 Range/Units 16:11 17:06 18:49 RBC (3.80-5.40) m/uL Hgb (11.4-16.0) gm/dL Hct (34.0-46.0) % RDW (11.5-15.5) % Lymphocytes # (1.0-4.8) k/uL BUN (7-17) mg/dL Creatinine (0.52-1.04) mg/dL Glucose (74-99) mg/dL POC Glucose (mg/dL) 308 H 287 H 181 H (70-110) mg/dL 04/29/22 04/29/22 04/29/22 Range/Units 20:52 21:24 22:23 RBC (3.80-5.40) m/uL Hgb (11.4-16.0) gm/dL Hct (34.0-46.0) % RDW (11.5-15.5) % Lymphocytes # (1.0-4.8) k/uL BUN (7-17) mg/dL Creatinine (0.52-1.04) mg/dL Glucose (74-99) mg/dL POC Glucose (mg/dL) 44 L 190 H 278 H (70-110) mg/dL 04/30/22 04/30/22 04/30/22 Range/Units 00:10 01:11 02:08 RBC (3.80-5.40) m/uL Hgb (11.4-16.0) gm/dL Hct (34.0-46.0) % RDW (11.5-15.5) % Lymphocytes # (1.0-4.8) k/uL BUN (7-17) mg/dL Creatinine (0.52-1.04) mg/dL Glucose (74-99) mg/dL POC Glucose (mg/dL) 226 H 267 H 129 H (70-110) mg/dL 04/30/22 04/30/22 04/30/22 Range/Units 03:09 04:08 05:10 RBC (3.80-5.40) m/uL Hgb (11.4-16.0) gm/dL Hct (34.0-46.0) % RDW (11.5-15.5) % Lymphocytes # (1.0-4.8) k/uL BUN (7-17) mg/dL Creatinine (0.52-1.04) mg/dL Glucose (74-99) mg/dL POC Glucose (mg/dL) 206 H 262 H 268 H (70-110) mg/dL 04/30/22 04/30/22 04/30/22 Range/Units 06:17 06:17 06:35 RBC 2.74 L (3.80-5.40) m/uL Hgb 8.4 L (11.4-16.0) gm/dL Hct 27.0 L (34.0-46.0) % RDW 16.4 H (11.5-15.5) % Lymphocytes # 0.3 L (1.0-4.8) k/uL BUN 50 H (7-17) mg/dL Creatinine 2.80 H (0.52-1.04) mg/dL Glucose 204 H (74-99) mg/dL POC Glucose (mg/dL) 188 H (70-110) mg/dL Microbiology - Last 24 Hours (Table) 04/27/22 22:56 Blood Culture - Preliminary Blood No Growth after 48 hours 04/24/22 20:51 Blood Culture - Preliminary Blood No Growth after 120 hours 04/26/22 18:16 Gram Stain - Final Sputum Sputum Culture - Final Assessment and Plan Assessment: 1. End-stage renal disease on hemodialysis on a Monday schedule. Being dialyzed on a daily basis for the last 4-5 days due to volume overload and hyperkalemia 2. Volume overload 3. COVID-19 PCR positive 4. CK D mineral bone disorder 5. Uncontrolled hypertension partly related to volume overload, improved with ultrafiltration 6. Status post cardiac arrest associated with hyperkalemia as well as respirat ory depression from opiates. 7. Hyperkalemia status post emergency treatment last night. Patient's blood sugar was also significantly elevated at 562 causing significant shift of potassium. This has improved with insulin drip and hemodialysis. 8. Diarrhea, C. diff toxin negative. Currently improved Plan: Repeat hemodialysis today No hemodialysis tomorrow Add Ashleyp
[2022-04-30 09:08] LABS: Glucose,Whole Blood 98 mg/dL (70-110)
[2022-04-30 10:38] LABS: Glucose,Whole Blood 196 mg/dL (70-110)
--- NOTE | 2022-04-30 11:16 | P.PN ---
Subjective Progress Note Date: 04/30/22 Principal diagnosis: Cardiac arrest This is a 31-year-old female with history of chronic kidney disease/renal failure on hemodialysis. History of previous CVA and previous cardiac arrest, patient presented to the ER on 04/24/22 presented mostly with 1 week history of cough, shortness of breath, and chest pain upon coughing. Pain was described by the ER physician as sharp, no radiation, pain was not associated with diaphoresis, no nausea no vomiting no abdominal pain. Patient had her last hemodialysis 2 days prior. Chest x-ray upon her initial evaluation showed evidence of pulmonary vascular congestion consistent with pulmonary edema/fluid overload, patient tested positive for COVID-19 infection, patient had low pulse oximetry on her initial presentation 85% on room air, and went up to 93% on 2 L. Patient was admitted, and she was seen by nephrology on consultation on 04/25 and she was also seen by her admitting physician on 04/26. On 04/26, at around 1800 p.m., CARLA EDWARD was called overhead. Sound physician responded to the code, patient was being resuscitated upon his arrival. Patient was in asystole and she received a total of 4 epinephrines, 2 bicarb, 1 calcium given patient was intubated however she was noted to have emesis during intubation, and she may have had visible aspiration. Cold lasted about 7 minutes, patient was sent to the ICU on mechanical ventilation. Her potassium was above 8, nephrology was notified, and the patient received treatment for heart high potassium and she received immediate hemodialysis while in the ICU. I was notified about this patient shortly after she arrived to the ICU, and I recommended ventilatory supp ort, adjusted her ventilator settings she initially required high FiO2 and high PEEP. She required more sedation utilizing propofol and Versed because she was still agitated and restless with propofol alone at maximal dose. Recommended Zosyn empirically for presumptive aspiration pneumonia recommended GI and DVT prophylaxis, immediate hemodialysis by nephrology, and reviewed her ABG, and her vent settings were adjusted accordingly. Patient is now in the ICU on mechanical ventilation, she is on assist control rate of 28th of volume 400 FiO2 40% and PEEP of 12. ABG showed a pO2 of 143 pCO2 41 pH of 7.38. And I recommended cutting down the PEEP down to 5, and kept her on 40% FiO2. Patient will be receiving more hemodialysis today. Hemoglobin is down to 6.4 and she'll be receiving 1 unit of packed RBCs. She will also receive hemodialysis again today. She had a temp of 103, cultures are pending and I'm recommending Zosyn for now for presumptive aspiration pneumonia. Patient is on Versed at 7 mg per hour, propofol at 75 mcg/kg/m, her IV fluids at KVO, she is also on insulin drip. This morning labs showed hemoglobin of 6.4. Normal electrolytes, bicarb is normal, BUN is 32 creatinine 3.47. As mentioned earlier patient had positive PCR for COVID-19 infection Reevaluated today on 04/28/22, patient was extubated yesterday, and she was placed initially on nasal cannula, however at night she was transitioned to BiPAP. Presently on BiPAP 12/100%, and I cut down her FiO2 to 50%. Patient is undergoing hemodialysis. Patient is also on insulin drip. Patient is tolerating BiPAP quite well, she is arousable, follows simple instructions, does not seem to be in distress. Her IV fluids at KVO. Chest x-ray showed evidence of pulmonary edema. Underlying pneumonia is not entirely ruled out, considering the patient did have witnessed aspiration. However her chest x-ray will likely improve post dialysis. WBC count today is 8.8 hemoglobin is 7.2. Electrolytes are normal BUN is 30 creatinine 2.97 Reevaluated today on 04/29/22, patient remains in the ICU, remains on 3 L nasal cannula with O2 sat she is 100%, she is receiving hemodialysis this morning, she had 4 L of fluid removed on 04/28. Remains empirically on Zosyn for presumptive aspiration pneumonia she is now on insulin at 5.42 units per hour to control her blood sugars. Otherwise the patient is doing well, relatively asymptomatic. Hemoglobin is 7.6 WBC count is 8.4, basic metabolic profile is normal bicarb is 24 lites are normal Reevaluated today on 05/27/22, patient is doing well today, she is on 3 L nasal cannula, intermittently on BiPAP 12/5/50%, patient is sitting in bed, eating her breakfast, she had uneventful hemodialysis yesterday, and 2 L of fluids were removed. Her sugar is all over the place, it is fluctuating up and down, and that is to be addressed by the admitting physician. She is on Zosyn empirically for aspiration pneumonia, chest x-ray will be done in a.m. for follow-up on her aspiration pneumonia. Patient was also presented with COVID-19 infection, underlying COVID-19 pneumonia is not entirely ruled out. WBC count is 6.8 hemoglobin 8.4. Normal bicarb is 22 BUN is 50 creatinine is 2.80 blood sugar this morning is 204 Objective - Vital Signs Vital signs: Vital Signs Temp 98.8 F 04/30/22 08:00 Pulse 80 04/30/22 11:00 Resp 14 04/30/22 11:00 BP 128/72 04/30/22 11:00 Pulse Ox 100 04/30/22 11:00 FiO2 50 04/28/22 12:00 Intake & Output 04/29/22 04/30/22 04/30/22 18:59 06:59 18:59 Intake Total 1695.277 464.978 166.300 Output Total 2500 0 0 Balance -804.723 464.978 166.300 Weight 43.1 kg Intake: IV 160 40 150 .9 @ 10 60 40 50 Piperacillin-Tazobactam 3 100 100 .375 gm In Sodium Chloride 0.9% 100 ml @ 25 mls/hr IVPB Q12HR [facility] Rx #:[id number] Intake, IV Titration 85.277 144.978 16.300 Amount Insulin Regular 100 unit 85.277 44.978 16.300 In Sodium Chloride 0.9% 100 ml @ Titrate IV .Q0M [facility] Rx#:[id number] Piperacillin-Tazobactam 3 100 .375 gm In Sodium Chloride 0.9% 100 ml @ 25 mls/hr IVPB Q12HR [facility] Rx #:[id number] Oral 950 280 Hemodialysis 500 Output: Urine 0 0 0 Hemodialysis 2500 Other: # Voids 0 - Exam General: Revealed a 51-year-old female in no distress, on 3 L nasal cannula Head: Atraumatic, normocephalic. HEENT:[Neck is supple.] [No neck masses.] [No thyromegaly.] [No JVD.] Dry mucous membranes. Chest: Symmetrical chest expansion crackles at the bases. No rhonchi and no wheezes Cardiac Exam: [Normal S1 and S2, no S3 gallop, 2/6 systolic murmur thought the precordium. Abdomen: [Soft, nontender, no megaly, no rebound, no guarding, normal bowel sounds.] Extremities: [No clubbing, no edema, no cyanosis.] Neurological Exam: Alert oriented 3 deficit. Psychiatric: Depressed mood and flat affect, normal mental status - Labs CBC & Chem 7: 04/30/22 06:17 04/30/22 06:17 Labs: Abnormal Lab Results - Last 24 Hours (Table) 04/29/22 04/29/22 04/29/22 Range/Units 11:14 12:03 13:59 RBC (3.80-5.40) m/uL Hgb (11.4-16.0) gm/dL Hct (34.0-46.0) % RDW (11.5-15.5) % Lymphocytes # (1.0-4.8) k/uL BUN (7-17) mg/dL Creatinine (0.52-1.04) mg/dL Glucose (74-99) mg/dL POC Glucose (mg/dL) 306 H 154 H 126 H (70-110) mg/dL 04/29/22 04/29/22 04/29/22 Range/Units 15:06 16:11 17:06 RBC (3.80-5.40) m/uL Hgb (11.4-16.0) gm/dL Hct (34.0-46.0) % RDW (11.5-15.5) % Lymphocytes # (1.0-4.8) k/uL BUN (7-17) mg/dL Creatinine (0.52-1.04) mg/dL Glucose (74-99) mg/dL POC Glucose (mg/dL) 243 H 308 H 287 H (70-110) mg/dL 04/29/22 04/29/22 04/29/22 Range/Units 18:49 20:52 21:24 RBC (3.80-5.40) m/uL Hgb (11.4-16.0) gm/dL Hct (34.0-46.0) % RDW (11.5-15.5) % Lymphocytes # (1.0-4.8) k/uL BUN (7-17) mg/dL Creatinine (0.52-1.04) mg/dL Glucose (74-99) mg/dL POC Glucose (mg/dL) 181 H 44 L 190 H (70-110) mg/dL 04/29/22 04/30/22 04/30/22 Range/Units 22:23 00:10 01:11 RBC (3.80-5.40) m/uL Hgb (11.4-16.0) gm/dL Hct (34.0-46.0) % RDW (11.5-15.5) % Lymphocytes # (1.0-4.8) k/uL BUN (7-17) mg/dL Creatinine (0.52-1.04) mg/dL Glucose (74-99) mg/dL POC Glucose (mg/dL) 278 H 226 H 267 H (70-110) mg/dL 04/30/22 04/30/22 04/30/22 Range/Units 02:08 03:09 04:08 RBC (3.80-5.40) m/uL Hgb (11.4-16.0) gm/dL Hct (34.0-46.0) % RDW (11.5-15.5) % Lymphocytes # (1.0-4.8) k/uL BUN (7-17) mg/dL Creatinine (0.52-1.04) mg/dL Glucose (74-99) mg/dL POC Glucose (mg/dL) 129 H 206 H 262 H (70-110) mg/dL 04/30/22 04/30/22 04/30/22 Range/Units 05:10 06:17 06:17 RBC 2.74 L (3.80-5.40) m/uL Hgb 8.4 L (11.4-16.0) gm/dL Hct 27.0 L (34.0-46.0) % RDW 16.4 H (11.5-15.5) % Lymphocytes # 0.3 L (1.0-4.8) k/uL BUN 50 H (7-17) mg/dL Creatinine 2.80 H (0.52-1.04) mg/dL Glucose 204 H (74-99) mg/dL POC Glucose (mg/dL) 268 H (70-110) mg/dL 04/30/22 04/30/22 Range/Units 06:35 10:34 RBC (3.80-5.40) m/uL Hgb (11.4-16.0) gm/dL Hct (34.0-46.0) % RDW (11.5-15.5) % Lymphocytes # (1.0-4.8) k/uL BUN (7-17) mg/dL Creatinine (0.52-1.04) mg/dL Glucose (74-99) mg/dL POC Glucose (mg/dL) 188 H 196 H (70-110) mg/dL Microbiology - Last 24 Hours (Table) 04/27/22 22:56 Blood Culture - Preliminary Blood No Growth after 48 hours 04/24/22 20:51 Blood Culture - Preliminary Blood No Growth after 120 hours 04/26/22 18:16 Gram Stain - Final Sputum Sputum Culture - Final Assessment and Plan Assessment: Impression: Acute hypoxic and hypercapnic respiratory failure secondary to cardiac arrest suspect cardiac arrest from hyperkalemia, potassium was 8.9, this is most likely secondary to her end-stage renal disease. Prior to that on 04/24 and her potassium was 5.9 Acute COVID-19 infection, doubt COVID-19 pneumonia. Strongly suspect aspiration pneumonia Fluid overload secondary to end-stage renal disease History of CVA/TIA Type 2 diabetes. End-stage renal disease, on hemodialysis. Previous history of cardiac arrest. History of diabetic retinopathy and neuropathy History of depression Status post extubation on 04/27/22 Recommendation: ADA diet, advance as tolerated. Continue oxygen and titrate accordingly No hemodialysis today, she may have hemodialysis next Monday or probably tomorrow. Continue antibiotics for presumptive aspiration pneumonia, presently on Zosyn. Continue COVID-19 cocktail Continue to monitor electrolytes and sugars, address accordingly. Continue to monitor in the ICU for the next 24 hours since her sugars are very labile. We will continue to follow Time with Patient: Less than 30
[2022-04-30 11:32] LABS: Glucose,Whole Blood 174 mg/dL (70-110)
[2022-04-30 12:30] LABS: Glucose,Whole Blood 141 mg/dL (70-110)
[2022-04-30 13:27] LABS: Glucose,Whole Blood 178 mg/dL (70-110)
[2022-04-30 14:23] LABS: Glucose,Whole Blood 268 mg/dL (70-110)
[2022-04-30 15:40] LABS: Glucose,Whole Blood 296 mg/dL (70-110)
[2022-04-30 16:42] LABS: Glucose,Whole Blood 239 mg/dL (70-110)
[2022-04-30 18:03] LABS: Glucose,Whole Blood 269 mg/dL (70-110)
[2022-04-30 18:44] LABS: Glucose,Whole Blood 251 mg/dL (70-110)
[2022-04-30 20:41] LABS: Glucose,Whole Blood 95 mg/dL (70-110)
[2022-04-30 21:09] LABS: Glucose,Whole Blood 113 mg/dL (70-110)
[2022-04-30 22:04] LABS: Glucose,Whole Blood 250 mg/dL (70-110)
[2022-04-30] MEDS: DARBEPOETIN ALFA 60 MCG/0.3 ML SYRINGE SQ SCH (22:14)
[2022-04-30 23:06] LABS: Glucose,Whole Blood 274 mg/dL (70-110)
--- NOTE | 2022-04-30 23:55 | PN ---
PROGRESS NOTE SUBJECTIVE: A 31-year-old lady with history of end-stage renal disease, on hemodialysis, who is admitted to ICU following a cardiorespiratory arrest. She is extubated, doing well, and is free of symptoms. OBJECTIVE: VITAL SIGNS: Stable. NECK: There is no jugular venous distention. CHEST: Reveals good air entry bilaterally. HEART: Reveals first and second heart sounds. No gallop. ABDOMEN: Soft. EXTREMITIES: Exam of extremities did not reveal any edema. Peripheral pulses are felt. LABORATORY DATA: Labs have been reviewed. ASSESSMENT: 1. Status post cardiorespiratory arrest, end-stage renal disease, on hemodialysis. 2. Hypertension. PLAN: The patient is doing well. We will continue current medications. MMODL / IJN: [id number] /
[2022-05-01 00:08] LABS: Glucose,Whole Blood 199 mg/dL (70-110)
[2022-05-01 01:02] LABS: Glucose,Whole Blood 118 mg/dL (70-110)
[2022-05-01] MEDS: INSULIN REGULAR 100 UNIT in SODIUM CHLORIDE 0.9% 100 ML IV SCH (01:04)
[2022-05-01 02:03] LABS: Glucose,Whole Blood 120 mg/dL (70-110)
[2022-05-01 03:05] LABS: Glucose,Whole Blood 138 mg/dL (70-110)
[2022-05-01 04:05] LABS: Glucose,Whole Blood 148 mg/dL (70-110)
--- NOTE | 2022-05-01 04:55 | PN ---
PROGRESS NOTE DATE OF SERVICE: 04/29/2022 CHIEF COMPLAINT: Cardiac arrest, renal failure, diabetes. HISTORY OF PRESENT ILLNESS: This lady is now awake and alert and oriented. She has no neurologic sequelae. She still is complaining of generalized pain and angling for more often on higher doses of Dilaudid. PHYSICAL EXAMINATION: VITAL SIGNS: Normal. CHEST: Clear. CARDIAC: Normal sinus rhythm. ABDOMEN: Soft. IMPRESSION: 1. Status post cardiac arrest. 2. Hyperkalemia. 3. Stage 5 chronic kidney disease. 4. Uncontrolled hypertension. 5. Uncontrolled type 1 diabetes mellitus. 6. Amblyopia. 7. Depression. PLAN: Continue with current program, and she can probably be moved out of ICU at any time. MMODL / IJN: [id number] /
--- NOTE | 2022-05-01 04:55 | PN ---
PROGRESS NOTE DATE OF SERVICE: 04/30/2022 CHIEF COMPLAINT: Cardiac arrest. HISTORY OF PRESENT ILLNESS: This lady seems to be fairly stable. She would like her Benadryl increased. She has not had any shortness of breath, chest pain, etc. PHYSICAL EXAMINATION: VITAL SIGNS: Blood pressure is under good control. CHEST: Clear. CARDIAC: Normal. ABDOMEN: Soft and nontender. IMPRESSION: 1. Cardiac arrest. 2. Stage 5 chronic kidney disease. 3. Hyperkalemia. 4. Hypertension. 5. Type 1 diabetes mellitus. 6. Amblyopia. 7. Depression. PLAN: Increase her Benadryl to q.6 p.r.n. and continue her ICU management. MMODL / IJN: [id number] /
[2022-05-01] MEDS: HYDROmorphone 0.5 MG/0.5 ML SYRINGE IVP PRN ×4 (05:11→23:48)
[2022-05-01] MEDS: DEXAMETHASONE SOD PHOSPHATE 10 MG/ML 1 ML VIAL IVP SCH ×4 (05:11→23:50)
[2022-05-01 05:17] LABS: Glucose,Whole Blood 189 mg/dL (70-110)
[2022-05-01 06:02] LABS: Glucose,Whole Blood 178 mg/dL (70-110)
[2022-05-01 06:44] LABS: Basophils % (A) 0 %; Eosinophils % (A) 0 %; HCT 25.7 % (34.0-46.0); HGB 8.2 gm/dL (11.4-16.0); Hypochromasia Moderate; Lymphocytes # (A) 0.5 k/uL (1.0-4.8); Lymphocytes % (A) 6 %; MCH 30.8 pg (25.0-35.0); MCV 96.3 fL (80.0-100.0); Mean Platelet Volume 9.8; Monocytes # (A) 0.4 k/uL (0-1.0); Monocytes % (A) 5 %; Neutrophils # (A) 6.4 k/uL (1.3-7.7); Neutrophils % (A) 85 %; Platelet Count 178 k/uL (150-450); RBC 2.67 m/uL (3.80-5.40); RDW 15.8 % (11.5-15.5); WBC 7.4 k/uL (3.8-10.6)
[2022-05-01 06:53] LABS: Calcium 8.6 mg/dL (8.4-10.2)
--- NOTE | 2022-05-01 07:12 | XR ---
EXAMINATION TYPE: XR chest 1V portable DATE OF EXAM: 05/01/2022 5:29 AM COMPARISON: Chest radiographs from 04/28/2022 TECHNIQUE: XR chest 1V portable Portable AP radiograph of the chest. CLINICAL INDICATION:Female, 31 years old with history of CHF, pneumonia, CoVID; FINDINGS: Lungs/Pleura: Improved aeration of the lungs. There remains subtle airspace opacities throughout the lungs. There is no evidence of pleural effusion, focal consolidation, or pneumothorax. Pulmonary vascularity: Unremarkable. Heart/mediastinum: Cardiomediastinal silhouette is enlarged and stable. Musculoskeletal: No acute osseous pathology. IMPRESSION: Improved aeration of the lungs with persistent subtle multifocal airspace opacities.
[2022-05-01 07:14] LABS: Glucose,Whole Blood 142 mg/dL (70-110)
[2022-05-01] MEDS: ALBUTEROL HFA INHALER INHALATION PRN ×3 (08:05→15:23)
[2022-05-01 08:27] LABS: Glucose,Whole Blood 120 mg/dL (70-110)
[2022-05-01 09:17] LABS: Glucose,Whole Blood 167 mg/dL (70-110)
[2022-05-01] MEDS ORDERED: DEXTROSE 50% SYRINGE 50 ML IVP PRN ×2 (09:20)
[2022-05-01] MEDS: carvediloL 12.5 MG TAB PO SCH ×2 (09:49→17:24)
[2022-05-01] MEDS: hydrALAZINE HCL 50 MG TAB PO SCH ×3 (09:50→21:05)
[2022-05-01] MEDS: PANTOPRAZOLE 40 MG TABLET PO SCH (09:50)
[2022-05-01] MEDS: ENOXAPARIN 30 MG/0.3 ML SYRINGE SQ SCH (09:50)
[2022-05-01] MEDS: diphenhydrAMINE 50 MG/ML 1 ML VIAL IVP PRN ×3 (09:50→23:49)
[2022-05-01] MEDS: cloNIDine HCL 0.1 MG TAB PO SCH ×3 (09:50→21:04)
[2022-05-01] MEDS: ASPIRIN 81 MG PO SCH (09:51)
[2022-05-01] MEDS: buPROPion SR 150 MG TABLET.ER PO SCH ×2 (09:51→23:47)
[2022-05-01] MEDS: DULoxetine HCL 30 MG CAPSULE.DR PO SCH ×2 (09:51→21:05)
[2022-05-01] MEDS: PIPERACILLIN-TAZOBACTAM 3.375 GM in SODIUM CHLORIDE 0.9% 100 ML IVPB SCH (09:52)
[2022-05-01] MEDS: rOPINIRole HCL 4 MG TABLET PO SCH ×2 (09:52→23:47)
[2022-05-01] MEDS: INSULIN DETEMIR (LEVEMIR) 100 UNIT/ML SYR SQ SCH (09:53)
[2022-05-01] MEDS: TORSEMIDE 20 MG TAB PO SCH (09:53)
--- NOTE | 2022-05-01 11:23 | PN ---
PROGRESS NOTE SUBJECTIVE: A 31-year-old lady with end-stage renal disease, on hemodialysis, that is admitted to hospital with COVID-19 and had a cardiorespiratory arrest in the hospital. She is doing well now, remains in sinus rhythm, stable hemodynamically, tolerating her dialysis well. OBJECTIVE: CHEST: Reveals good air entry bilaterally. HEART: Reveals first and second heart sounds. No gallop. ABDOMEN: Soft. EXTREMITIES: Did not reveal any edema. LABORATORY DATA: Labs show a hemoglobin of 8.2, platelet count is 178, potassium is 4, creatinine is 2.8. ASSESSMENT: 1. Status post cardiorespiratory arrest. 2. End-stage renal disease, on hemodialysis. 3. Hypertension. PLAN: The patient is doing well. She will continue her current medications. Arrange followup with Cardiology on discharge. We will consider an outpatient stress test on her. She had an echocardiogram within the last 6 months that showed normal LV function. MMODL / IJN: [id number] /
[2022-05-01 11:57] LABS: Glucose,Whole Blood 399 mg/dL (70-110)
--- NOTE | 2022-05-01 12:06 | P.PN ---
Subjective Patient is seen for follow-up for end-stage renal disease. She was admitted to the hospital with shortness of breath and increased weakness. Patient tested positive for covid 19 Evidence of volume overload on admission Patient had a cardiac arrest on 04/26/2022. Potassium was elevated at 8.9 and patient had also received opiates. Patient has had emergency dialysis and she was successfully extubated. Cozaar was discontinued. Patient needs to be maintained off of CHANDA inhibitor's or angiotensin receptor blockers given her history of hyperkalemia Patient is sitting up in bed and having breakfast. tolerated dialysis well yesterday with UF of 2.5 L. Scheduled for hemodialysis in a.m. Objective - Vital Signs Vital signs: Vital Signs Temp 98.8 F 05/01/22 09:00 Pulse 78 05/01/22 09:00 Resp 20 05/01/22 09:00 BP 150/93 05/01/22 09:00 Pulse Ox 100 05/01/22 09:00 FiO2 50 04/28/22 12:00 Intake & Output 04/30/22 05/01/22 05/01/22 18:59 06:59 18:59 Intake Total 831.392 973.398 65.800 Output Total 2500 0 0 Balance -1668.608 973.398 65.800 Intake: IV 280 240 60 .9 @ 10 180 240 60 Piperacillin-Tazobactam 3 100 .375 gm In Sodium Chloride 0.9% 100 ml @ 25 mls/hr IVPB Q12HR [facility] Rx #:[id number] Intake, IV Titration 51.392 133.398 5.800 Amount Insulin Regular 100 unit 51.392 33.398 5.800 In Sodium Chloride 0.9% 100 ml @ Titrate IV .Q0M [facility] Rx#:[id number] Piperacillin-Tazobactam 3 100 .375 gm In Sodium Chloride 0.9% 100 ml @ 25 mls/hr IVPB Q12HR [facility] Rx #:[id number] Oral 600 Hemodialysis 500 Output: Urine 0 0 0 Hemodialysis 2500 Other: # Voids 0 0 0 # Bowel Movements 1 - Exam Patient is sitting up in bed Alert oriented 3 No acute distress Examination of the heart S1 and S2 Examination of the lungs bilateral breath sounds are heard Abdomen is soft nontender Examination of lower extremity shows no edema - Labs CBC & Chem 7: 05/01/22 05:50 05/01/22 05:50 Labs: Abnormal Lab Results - Last 24 Hours (Table) 04/30/22 04/30/22 04/30/22 Range/Units 12:29 13:26 14:22 RBC (3.80-5.40) m/uL Hgb (11.4-16.0) gm/dL Hct (34.0-46.0) % RDW (11.5-15.5) % Lymphocytes # (1.0-4.8) k/uL Sodium (137-145) mmol/L Carbon Dioxide (22-30) mmol/L BUN (7-17) mg/dL Creatinine (0.52-1.04) mg/dL Glucose (74-99) mg/dL POC Glucose (mg/dL) 141 H 178 H 268 H (70-110) mg/dL 04/30/22 04/30/22 04/30/22 Range/Units 15:39 16:40 18:01 RBC (3.80-5.40) m/uL Hgb (11.4-16.0) gm/dL Hct (34.0-46.0) % RDW (11.5-15.5) % Lymphocytes # (1.0-4.8) k/uL Sodium (137-145) mmol/L Carbon Dioxide (22-30) mmol/L BUN (7-17) mg/dL Creatinine (0.52-1.04) mg/dL Glucose (74-99) mg/dL POC Glucose (mg/dL) 296 H 239 H 269 H (70-110) mg/dL 04/30/22 04/30/22 04/30/22 Range/Units 18:42 21:07 22:03 RBC (3.80-5.40) m/uL Hgb (11.4-16.0) gm/dL Hct (34.0-46.0) % RDW (11.5-15.5) % Lymphocytes # (1.0-4.8) k/uL Sodium (137-145) mmol/L Carbon Dioxide (22-30) mmol/L BUN (7-17) mg/dL Creatinine (0.52-1.04) mg/dL Glucose (74-99) mg/dL POC Glucose (mg/dL) 251 H 113 H 250 H (70-110) mg/dL 04/30/22 05/01/22 05/01/22 Range/Units 23:04 00:05 01:00 RBC (3.80-5.40) m/uL Hgb (11.4-16.0) gm/dL Hct (34.0-46.0) % RDW (11.5-15.5) % Lymphocytes # (1.0-4.8) k/uL Sodium (137-145) mmol/L Carbon Dioxide (22-30) mmol/L BUN (7-17) mg/dL Creatinine (0.52-1.04) mg/dL Glucose (74-99) mg/dL POC Glucose (mg/dL) 274 H 199 H 118 H (70-110) mg/dL 05/01/22 05/01/22 05/01/22 Range/Units 02:01 03:03 04:04 RBC (3.80-5.40) m/uL Hgb (11.4-16.0) gm/dL Hct (34.0-46.0) % RDW (11.5-15.5) % Lymphocytes # (1.0-4.8) k/uL Sodium (137-145) mmol/L Carbon Dioxide (22-30) mmol/L BUN (7-17) mg/dL Creatinine (0.52-1.04) mg/dL Glucose (74-99) mg/dL POC Glucose (mg/dL) 120 H 138 H 148 H (70-110) mg/dL 05/01/22 05/01/22 05/01/22 Range/Units 05:15 05:50 05:50 RBC 2.67 L (3.80-5.40) m/uL Hgb 8.2 L (11.4-16.0) gm/dL Hct 25.7 L (34.0-46.0) % RDW 15.8 H (11.5-15.5) % Lymphocytes # 0.5 L (1.0-4.8) k/uL Sodium 133 L (137-145) mmol/L Carbon Dioxide 21 L (22-30) mmol/L BUN 54 H (7-17) mg/dL Creatinine 2.81 H (0.52-1.04) mg/dL Glucose 174 H (74-99) mg/dL POC Glucose (mg/dL) 189 H (70-110) mg/dL 05/01/22 05/01/22 05/01/22 Range/Units 06:00 07:12 08:25 RBC (3.80-5.40) m/uL Hgb (11.4-16.0) gm/dL Hct (34.0-46.0) % RDW (11.5-15.5) % Lymphocytes # (1.0-4.8) k/uL Sodium (137-145) mmol/L Carbon Dioxide (22-30) mmol/L BUN (7-17) mg/dL Creatinine (0.52-1.04) mg/dL Glucose (74-99) mg/dL POC Glucose (mg/dL) 178 H 142 H 120 H (70-110) mg/dL 05/01/22 05/01/22 Range/Units 09:06 11:55 RBC (3.80-5.40) m/uL Hgb (11.4-16.0) gm/dL Hct (34.0-46.0) % RDW (11.5-15.5) % Lymphocytes # (1.0-4.8) k/uL Sodium (137-145) mmol/L Carbon Dioxide (22-30) mmol/L BUN (7-17) mg/dL Creatinine (0.52-1.04) mg/dL Glucose (74-99) mg/dL POC Glucose (mg/dL) 167 H 399 H (70-110) mg/dL Microbiology - Last 24 Hours (Table) 04/27/22 22:56 Blood Culture - Preliminary Blood No Growth after 72 hours 04/24/22 20:51 Blood Culture - Final Blood No Growth after 144 hours Assessment and Plan Assessment: 1. End-stage renal disease on hemodialysis on a Monday schedule. Being dialyzed on a daily basis for the last 4-5 days due to volume overload and hyperkalemia 2. Volume overload 3. COVID-19 PCR positive 4. CK D mineral bone disorder 5. Uncontrolled hypertension partly related to volume overload, improved with ultrafiltration 6. Status post cardiac arrest associated with hyperkalemia as well as respiratory depression from opiates. 7. Hyperkalemia status post emergency treatment last night. Patient's blood sugar was also significantly elevated at 562 causing significant shift of potassium. This has improved with insulin drip and hemodialysis. 8. Diarrhea, C. diff toxin negative. Currently improved Plan: hemodialysis in a.m. continue Aranesp continue to avoid CHANDA inhibitor's or angiotensin receptor blockers
[2022-05-01] MEDS: INSULIN ASPART (NovoLOG) 100 UNIT/ML VIAL SQ SCH ×3 (12:10→21:05)
--- NOTE | 2022-05-01 12:32 | P.PN ---
Subjective Progress Note Date: 05/01/22 Principal diagnosis: Cardiac arrest This is a 31-year-old female with history of chronic kidney disease/renal failure on hemodialysis. History of previous CVA and previous cardiac arrest, patient presented to the ER on 04/24/22 presented mostly with 1 week history of cough, shortness of breath, and chest pain upon coughing. Pain was described by the ER physician as sharp, no radiation, pain was not associated with diaphoresis, no nausea no vomiting no abdominal pain. Patient had her last hemodialysis 2 days prior. Chest x-ray upon her initial evaluation showed evidence of pulmonary vascular congestion consistent with pulmonary edema/fluid overload, patient tested positive for COVID-19 infection, patient had low pulse oximetry on her initial presentation 85% on room air, and went up to 93% on 2 L. Patient was admitted, and she was seen by nephrology on consultation on 04/25 and she was also seen by her admitting physician on 04/26. On 04/26, at around 1800 p.m., CARLA EDWARD was called overhead. Sound physician responded to the code, patient was being resuscitated upon his arrival. Patient was in asystole and she received a total of 4 epinephrines, 2 bicarb, 1 calcium given patient was intubated however she was noted to have emesis during intubation, and she may have had visible aspiration. Cold lasted about 7 minutes, patient was sent to the ICU on mechanical ventilation. Her potassium was above 8, nephrology was notified, and the patient received treatment for heart high potassium and she received immediate hemodialysis while in the ICU. I was notified about this patient shortly after she arrived to the ICU, and I recommended ventilatory supp ort, adjusted her ventilator settings she initially required high FiO2 and high PEEP. She required more sedation utilizing propofol and Versed because she was still agitated and restless with propofol alone at maximal dose. Recommended Zosyn empirically for presumptive aspiration pneumonia recommended GI and DVT prophylaxis, immediate hemodialysis by nephrology, and reviewed her ABG, and her vent settings were adjusted accordingly. Patient is now in the ICU on mechanical ventilation, she is on assist control rate of 28th of volume 400 FiO2 40% and PEEP of 12. ABG showed a pO2 of 143 pCO2 41 pH of 7.38. And I recommended cutting down the PEEP down to 5, and kept her on 40% FiO2. Patient will be receiving more hemodialysis today. Hemoglobin is down to 6.4 and she'll be receiving 1 unit of packed RBCs. She will also receive hemodialysis again today. She had a temp of 103, cultures are pending and I'm recommending Zosyn for now for presumptive aspiration pneumonia. Patient is on Versed at 7 mg per hour, propofol at 75 mcg/kg/m, her IV fluids at KVO, she is also on insulin drip. This morning labs showed hemoglobin of 6.4. Normal electrolytes, bicarb is normal, BUN is 32 creatinine 3.47. As mentioned earlier patient had positive PCR for COVID-19 infection Reevaluated today on 04/28/22, patient was extubated yesterday, and she was placed initially on nasal cannula, however at night she was transitioned to BiPAP. Presently on BiPAP 12/100%, and I cut down her FiO2 to 50%. Patient is undergoing hemodialysis. Patient is also on insulin drip. Patient is tolerating BiPAP quite well, she is arousable, follows simple instructions, does not seem to be in distress. Her IV fluids at KVO. Chest x-ray showed evidence of pulmonary edema. Underlying pneumonia is not entirely ruled out, considering the patient did have witnessed aspiration. However her chest x-ray will likely improve post dialysis. WBC count today is 8.8 hemoglobin is 7.2. Electrolytes are normal BUN is 30 creatinine 2.97 Reevaluated today on 04/29/22, patient remains in the ICU, remains on 3 L nasal cannula with O2 sat she is 100%, she is receiving hemodialysis this morning, she had 4 L of fluid removed on 04/28. Remains empirically on Zosyn for presumptive aspiration pneumonia she is now on insulin at 5.42 units per hour to control her blood sugars. Otherwise the patient is doing well, relatively asymptomatic. Hemoglobin is 7.6 WBC count is 8.4, basic metabolic profile is normal bicarb is 24 lites are normal Reevaluated today on 05/27/22, patient is doing well today, she is on 3 L nasal cannula, intermittently on BiPAP 12/5/50%, patient is sitting in bed, eating her breakfast, she had uneventful hemodialysis yesterday, and 2 L of fluids were removed. Her sugar is all over the place, it is fluctuating up and down, and that is to be addressed by the admitting physician. She is on Zosyn empirically for aspiration pneumonia, chest x-ray will be done in a.m. for follow-up on her aspiration pneumonia. Patient was also presented with COVID-19 infection, underlying COVID-19 pneumonia is not entirely ruled out. WBC count is 6.8 hemoglobin 8.4. Normal bicarb is 22 BUN is 50 creatinine is 2.80 blood sugar this morning is 204 Reevaluated today on 05/01/22, patient remains in the ICU, she is doing much better today, breathing a lot easier, she did undergo dialysis yesterday, and she had almost 2 L removed yesterday. Today the patient is doing great, her chest x-ray is showing dramatic improvement, patient is only on 2 L nasal cannula, saturating well, and she does not seem to be in any distress. She remains on IV insulin at 2 units per hour, I'm recommending that we start long- acting insulin/Levemir insulin and sliding scale coverage, and I'll arrange for the patient to be transferred out of the ICU to a monitor bed on . WBC count today is 7.4 hemoglobin is 8.2. Basic metabolic profile is normal BUN is 54 creatinine 2.81, blood sugar is ranging between 274 and 400. Patient had negative C. diff. Objective - Vital Signs Vital signs: Vital Signs Temp 98.8 F 05/01/22 09:00 Pulse 78 05/01/22 09:00 Resp 20 05/01/22 09:00 BP 150/93 05/01/22 09:00 Pulse Ox 100 05/01/22 09:00 FiO2 50 04/28/22 12:00 Intake & Output 04/30/22 05/01/22 05/01/22 18:59 06:59 18:59 Intake Total 831.392 973.398 65.800 Output Total 2500 0 0 Balance -1668.608 973.398 65.800 Intake: IV 280 240 60 .9 @ 10 180 240 60 Piperacillin-Tazobactam 3 100 .375 gm In Sodium Chloride 0.9% 100 ml @ 25 mls/hr IVPB Q12HR [facility] Rx #:[id number] Intake, IV Titration 51.392 133.398 5.800 Amount Insulin Regular 100 unit 51.392 33.398 5.800 In Sodium Chloride 0.9% 100 ml @ Titrate IV .Q0M [facility] Rx#:[id number] Piperacillin-Tazobactam 3 100 .375 gm In Sodium Chloride 0.9% 100 ml @ 25 mls/hr IVPB Q12HR [facility] Rx #:[id number] Oral 600 Hemodialysis 500 Output: Urine 0 0 0 Hemodialysis 2500 Other: # Voids 0 0 0 # Bowel Movements 1 - Exam General: Revealed a 51-year-old female in no distress, on 2L nasal cannula Head: Atraumatic, normocephalic. HEENT:[Neck is supple.] [No neck masses.] [No thyromegaly.] [No JVD.] Dry mucous membranes. Chest: Symmetrical chest expansion crackles at the bases. No rhonchi and no wheezes Cardiac Exam: [Normal S1 and S2, no S3 gallop, 2/6 systolic murmur thought the precordium. Abdomen: [Soft, nontender, no megaly, no rebound, no guarding, normal bowel sounds.] Extremities: [No clubbing, no edema, no cyanosis.] Neurological Exam: Alert oriented 3 no focal deficit. Psychiatric: Depressed mood and flat affect, normal mental status - Labs CBC & Chem 7: 05/01/22 05:50 05/01/22 05:50 Labs: Abnormal Lab Results - Last 24 Hours (Table) 04/30/22 04/30/22 04/30/22 Range/Units 12:29 13:26 14:22 RBC (3.80-5.40) m/uL Hgb (11.4-16.0) gm/dL Hct (34.0-46.0) % RDW (11.5-15.5) % Lymphocytes # (1.0-4.8) k/uL Sodium (137-145) mmol/L Carbon Dioxide (22-30) mmol/L BUN (7-17) mg/dL Creatinine (0.52-1.04) mg/dL Glucose (74-99) mg/dL POC Glucose (mg/dL) 141 H 178 H 268 H (70-110) mg/dL 04/30/22 04/30/22 04/30/22 Range/Units 15:39 16:40 18:01 RBC (3.80-5.40) m/uL Hgb (11.4-16.0) gm/dL Hct (34.0-46.0) % RDW (11.5-15.5) % Lymphocytes # (1.0-4.8) k/uL Sodium (137-145) mmol/L Carbon Dioxide (22-30) mmol/L BUN (7-17) mg/dL Creatinine (0.52-1.04) mg/dL Glucose (74-99) mg/dL POC Glucose (mg/dL) 296 H 239 H 269 H (70-110) mg/dL 04/30/22 04/30/22 04/30/22 Range/Units 18:42 21:07 22:03 RBC (3.80-5.40) m/uL Hgb (11.4-16.0) gm/dL Hct (34.0-46.0) % RDW (11.5-15.5) % Lymphocytes # (1.0-4.8) k/uL Sodium (137-145) mmol/L Carbon Dioxide (22-30) mmol/L BUN (7-17) mg/dL Creatinine (0.52-1.04) mg/dL Glucose (74-99) mg/dL POC Glucose (mg/dL) 251 H 113 H 250 H (70-110) mg/dL 04/30/22 05/01/22 05/01/22 Range/Units 23:04 00:05 01:00 RBC (3.80-5.40) m/uL Hgb (11.4-16.0) gm/dL Hct (34.0-46.0) % RDW (11.5-15.5) % Lymphocytes # (1.0-4.8) k/uL Sodium (137-145) mmol/L Carbon Dioxide (22-30) mmol/L BUN (7-17) mg/dL Creatinine (0.52-1.04) mg/dL Glucose (74-99) mg/dL POC Glucose (mg/dL) 274 H 199 H 118 H (70-110) mg/dL 05/01/22 05/01/22 05/01/22 Range/Units 02:01 03:03 04:04 RBC (3.80-5.40) m/uL Hgb (11.4-16.0) gm/dL Hct (34.0-46.0) % RDW (11.5-15.5) % Lymphocytes # (1.0-4.8) k/uL Sodium (137-145) mmol/L Carbon Dioxide (22-30) mmol/L BUN (7-17) mg/dL Creatinine (0.52-1.04) mg/dL Glucose (74-99) mg/dL POC Glucose (mg/dL) 120 H 138 H 148 H (70-110) mg/dL 05/01/22 05/01/22 05/01/22 Range/Units 05:15 05:50 05:50 RBC 2.67 L (3.80-5.40) m/uL Hgb 8.2 L (11.4-16.0) gm/dL Hct 25.7 L (34.0-46.0) % RDW 15.8 H (11.5-15.5) % Lymphocytes # 0.5 L (1.0-4.8) k/uL Sodium 133 L (137-145) mmol/L Carbon Dioxide 21 L (22-30) mmol/L BUN 54 H (7-17) mg/dL Creatinine 2.81 H (0.52-1.04) mg/dL Glucose 174 H (74-99) mg/dL POC Glucose (mg/dL) 189 H (70-110) mg/dL 05/01/22 05/01/22 05/01/22 Range/Units 06:00 07:12 08:25 RBC (3.80-5.40) m/uL Hgb (11.4-16.0) gm/dL Hct (34.0-46.0) % RDW (11.5-15.5) % Lymphocytes # (1.0-4.8) k/uL Sodium (137-145) mmol/L Carbon Dioxide (22-30) mmol/L BUN (7-17) mg/dL Creatinine (0.52-1.04) mg/dL Glucose (74-99) mg/dL POC Glucose (mg/dL) 178 H 142 H 120 H (70-110) mg/dL 05/01/22 05/01/22 Range/Units 09:06 11:55 RBC (3.80-5.40) m/uL Hgb (11.4-16.0) gm/dL Hct (34.0-46.0) % RDW (11.5-15.5) % Lymphocytes # (1.0-4.8) k/uL Sodium (137-145) mmol/L Carbon Dioxide (22-30) mmol/L BUN (7-17) mg/dL Creatinine (0.52-1.04) mg/dL Glucose (74-99) mg/dL POC Glucose (mg/dL) 167 H 399 H (70-110) mg/dL Microbiology - Last 24 Hours (Table) 04/27/22 22:56 Blood Culture - Preliminary Blood No Growth after 72 hours 04/24/22 20:51 Blood Culture - Final Blood No Growth after 144 hours Assessment and Plan Assessment: Impression: Acute hypoxic and hypercapnic respiratory failure secondary to cardiac arrest suspect cardiac arrest from hyperkalemia, potassium was 8.9, this is most likely secondary to her end-stage renal disease. Prior to that on 04/24 and her potassium was 5.9 Acute COVID-19 infection, doubt COVID-19 pneumonia. Strongly suspect aspiration pneumonia Fluid overload secondary to end-stage renal disease History of CVA/TIA Type 2 diabetes. End-stage renal disease, on hemodialysis. Previous history of cardiac arrest. History of diabetic retinopathy and neuropathy History of depression Status post extubation on 04/27/22 Recommendation: Transfer patient to a monitor bed on selective are the ICU. Continue oxygen and titrate accordingly Consider transitioning Zosyn to Augmentin orally and discontinue Zosyn Continue COVID-19 cocktail Continue to monitor electrolytes and sugars, address accordingly. Start patient on Levemir insulin and on sliding scale coverage with NovoLog insulin We will continue to follow Time with Patient: Less than 30
--- NOTE | 2022-05-01 13:23 | PN ---
PROGRESS NOTE DATE OF SERVICE: 05/01/2022 CHIEF COMPLAINT: Cardiac arrest. HISTORY OF PRESENT ILLNESS: This lady is doing well. Blood pressure and blood sugars are under the best control they had been in quite some time. She is doing well otherwise. PHYSICAL EXAMINATION: CHEST: Clear. CARDIAC: Normal sinus rhythm. ABDOMEN: Soft, nontender. NEUROLOGICAL: She is intact. IMPRESSION: 1. Status post cardiac arrest. 2. Hyperkalemia. 3. Chronic kidney disease stage 5, on dialysis. 4. Hypertension. 5. Type 1 insulin-dependent diabetes mellitus. 6. Depression. PLAN: No change in program. She is doing well. MMODL / IJN: [id number] /
[2022-05-01] MEDS: AMOXIC-POT CLAV 875-125MG 1 EACH TAB PO SCH ×2 (13:26→21:05)
[2022-05-01 16:33] LABS: Glucose,Whole Blood 227 mg/dL (70-110)
[2022-05-01 19:48] LABS: Glucose,Whole Blood 209 mg/dL (70-110)
[2022-05-01] MEDS: traZODone HCL 50 MG TAB PO PRN (21:13)
[2022-05-02 03:28] LABS: Glucose,Whole Blood 579 mg/dL (70-110)
[2022-05-02] MEDS: INSULIN ASPART (NovoLOG) 100 UNIT/ML VIAL SQ SCH ×4 (04:12→20:47)
[2022-05-02 05:57] LABS: Glucose,Whole Blood 558 mg/dL (70-110)
[2022-05-02] MEDS: diphenhydrAMINE 50 MG/ML 1 ML VIAL IVP PRN ×3 (06:43→20:54)
[2022-05-02] MEDS: INSULIN DETEMIR (LEVEMIR) 100 UNIT/ML SYR SQ SCH (06:44)
[2022-05-02] MEDS: DEXAMETHASONE SOD PHOSPHATE 10 MG/ML 1 ML VIAL IVP SCH ×4 (06:44→23:49)
[2022-05-02] MEDS: ACETAMINOPHEN TAB 325 MG TAB PO PRN (06:45)
[2022-05-02] MEDS: carvediloL 12.5 MG TAB PO SCH ×2 (06:45→17:47)
[2022-05-02] MEDS: PANTOPRAZOLE 40 MG TABLET PO SCH (06:45)
[2022-05-02] MEDS: ALBUTEROL HFA INHALER INHALATION PRN ×4 (08:22→19:35)
--- NOTE | 2022-05-02 10:01 | P.PN ---
Subjective Patient is seen in follow-up for end-stage renal disease. She is maintained on hemodialysis on Monday schedule. Tolerating dialysis well. Denies chest pain. Blood sugar and blood pressure high this morning. Vital signs are stable. Blood pressure high. General: Awake. No acute distress. HEENT: Head exam is unremarkable. LUNGS: Breath sounds decreased. HEART: Rate and Rhythm are regular. ABDOMEN: Soft, no distention. EXTREMITITES: No edema. Objective - Vital Signs Vital signs: Vital Signs Temp 97.2 F L 05/02/22 08:00 Pulse 83 05/02/22 08:00 Resp 16 05/02/22 08:00 BP 197/105 05/02/22 08:00 Pulse Ox 97 05/02/22 08:00 FiO2 50 04/28/22 12:00 Intake & Output 05/01/22 05/02/22 05/02/22 18:59 06:59 18:59 Intake Total 65.800 240 Output Total 0 Balance 65.800 240 Intake: IV 60 .9 @ 10 60 Intake, IV Titration 5.800 Amount Insulin Regular 100 unit 5.800 In Sodium Chloride 0.9% 100 ml @ Titrate IV .Q0M [facility] Rx#:[id number] Oral 240 Output: Urine 0 Other: Voiding Method Toilet Toilet # Voids 0 0 - Labs CBC & Chem 7: 05/01/22 05:50 05/01/22 05:50 Labs: Abnormal Lab Results - Last 24 Hours (Table) 05/01/22 05/01/22 05/01/22 Range/Units 11:55 16:28 19:46 POC Glucose (mg/dL) 399 H 227 H 209 H (70-110) mg/dL 05/02/22 05/02/22 Range/Units 03:21 05:53 POC Glucose (mg/dL) 579 H 558 H (70-110) mg/dL Microbiology - Last 24 Hours (Table) 04/27/22 22:56 Blood Culture - Preliminary Blood No Growth after 96 hours Assessment and Plan Plan: Assessment: 1. End-stage renal disease maintained on hemodialysis on Monday schedule. 2. Volume overload. 3. COVID-19 infection. 4. Hypertension with chronic kidney disease. Blood pressure labile. Partially volume sensitive. 5. Status post cardiac arrest secondary to hyperkalemia and opioid use. 6. Hyperkalemia secondary to chronic kidney disease and hyperglycemia. Improved postdialysis. 7. Anemia of chronic kidney disease maintained on Aranesp. Plan: Currently seen while undergoing hemodialysis. Try for 3-4 L ultrafiltration as able to tolerate. Avoid medications that can raise potassium including ACEi/ARB. Avoid hydralazine and minoxidil due to history of pericardial effusion. Can increase dose of Coreg or add doxazosin if needed. Blood sugar control.
[2022-05-02] MEDS: cloNIDine HCL 0.1 MG TAB PO SCH ×3 (10:22→20:49)
[2022-05-02] MEDS: AMOXIC-POT CLAV 875-125MG 1 EACH TAB PO SCH ×2 (10:22→20:50)
[2022-05-02] MEDS: ASPIRIN 81 MG PO SCH (10:22)
[2022-05-02] MEDS: LORazepam 1 MG TAB PO PRN ×2 (10:22→20:51)
[2022-05-02] MEDS: DULoxetine HCL 30 MG CAPSULE.DR PO SCH ×2 (10:22→20:49)
[2022-05-02] MEDS: buPROPion SR 150 MG TABLET.ER PO SCH ×2 (10:23→20:48)
[2022-05-02] MEDS: rOPINIRole HCL 4 MG TABLET PO SCH ×2 (10:24→20:49)
[2022-05-02] MEDS: TORSEMIDE 20 MG TAB PO SCH (10:25)
[2022-05-02] MEDS: HYDROmorphone 0.5 MG/0.5 ML SYRINGE IVP PRN ×3 (10:25→23:50)
[2022-05-02] MEDS: hydrALAZINE HCL 50 MG TAB PO SCH (10:32)
[2022-05-02 12:02] LABS: Glucose,Whole Blood 200 mg/dL (70-110)
[2022-05-02] MEDS: CALCIUM ACETATE 667 MG TAB PO SCH ×2 (12:57→17:47)
[2022-05-02] MEDS: ENOXAPARIN 30 MG/0.3 ML SYRINGE SQ SCH (12:58)
--- NOTE | 2022-05-02 15:08 | P.PN ---
Subjective Progress Note Date: 05/02/22 Principal diagnosis: Coronavirus infection. Reevaluated today on 04/29/22, patient remains in the ICU, remains on 3 L nasal cannula with O2 sat she is 100%, she is receiving hemodialysis this morning, she had 4 L of fluid removed on 04/28. Remains empirically on Zosyn for presumptive aspiration pneumonia she is now on insulin at 5.42 units per hour to control her blood sugars. Otherwise the patient is doing well, relatively asymptomatic. Hemoglobin is 7.6 WBC count is 8.4, basic metabolic profile is normal bicarb is 24 lites are normal Reevaluated today on 05/27/22, patient is doing well today, she is on 3 L nasal cannula, intermittently on BiPAP 05/02/50%, patient is sitting in bed, eating her breakfast, she had uneventful hemodialysis yesterday, and 2 L of fluids were removed. Her sugar is all over the place, it is fluctuating up and down, and that is to be addressed by the admitting physician. She is on Zosyn empirically for aspiration pneumonia, chest x-ray will be done in a.m. for follow-up on her aspiration pneumonia. Patient was also presented with COVID-19 infection, underlying COVID-19 pneumonia is not entirely ruled out. WBC count is 6.8 hemoglobin 8.4. Normal bicarb is 22 BUN is 50 creatinine is 2.80 blood sugar this morning is 204 Reevaluated today on 05/01/22, patient remains in the ICU, she is doing much better today, breathing a lot easier, she did undergo dialysis yesterday, and she had almost 2 L removed yesterday. Today the patient is doing great, her chest x-ray is showing dramatic improvement, patient is only on 2 L nasal douglas karissa, saturating well, and she does not seem to be in any distress. She remains on IV insulin at 2 units per hour, I'm recommending that we start long-acting insulin/Levemir insulin and sliding scale coverage, and I'll arrange for the patient to be transferred out of the ICU to a monitor bed on selective. WBC count today is 7.4 hemoglobin is 8.2. Basic metabolic profile is normal BUN is 54 creatinine 2.81, blood sugar is ranging between 274 and 400. Patient had negative C. diff. Progress note dated 05/02/2022. The patient appears to be doing relatively well. The patient took her off oxyg en on. She's on room air. No IV fluids. She's feeling well, without complaints. No new blood work today. Microbiologic studies are negative. Chest x-ray shows improved aeration. Objective - Vital Signs Vital signs: Vital Signs Temp 97.6 F 05/02/22 12:53 Pulse 83 05/02/22 12:53 Resp 20 05/02/22 14:00 BP 161/83 05/02/22 12:53 Pulse Ox 97 05/02/22 12:00 FiO2 50 04/28/22 12:00 Intake & Output 05/01/22 05/02/22 05/02/22 18:59 06:59 18:59 Intake Total 65.800 540 Output Total 0 4300 Balance 65.800 -3760 Weight 43.1 kg Intake: IV 60 .9 @ 10 60 Intake, IV Titration 5.800 Amount Insulin Regular 100 unit 5.800 In Sodium Chloride 0.9% 100 ml @ Titrate IV .Q0M [facility] Rx#:[id number] Oral 240 Hemodialysis 300 Output: Urine 0 Hemodialysis 4300 Other: Voiding Method Toilet Toilet Toilet # Voids 0 0 1 - Exam No acute distress, oriented 3. Room air saturation is 97%. HEENT examination is grossly unremarkable. Neck supple. Full range of motion. No adenopathy thyromegaly or neck vein distention. Cardiovascular examination reveals regular rhythm rate. S1-S2 normal. No S3 or S4. No discernible murmur noted. Heart rate 83 bpm. Lungs reveal clear breath sounds. Breath sounds are equal bilaterally. No adventitious lung sounds including wheezes rhonchi or crackles. Abdomen soft bowel sounds are heard. No masses or tenderness. Extremities are intact. No cyanosis clubbing or edema. Skin is without rash or lesion. Neurologic examination is brief but nonfocal. - Labs CBC & Chem 7: 05/01/22 05:50 05/01/22 05:50 Labs: Abnormal Lab Results - Last 24 Hours (Table) 05/01/22 05/01/22 05/02/22 Range/Units 16:28 19:46 03:21 POC Glucose (mg/dL) 227 H 209 H 579 H (70-110) mg/dL 05/02/22 05/02/22 Range/Units 05:53 12:01 POC Glucose (mg/dL) 558 H 200 H (70-110) mg/dL Microbiology - Last 24 Hours (Table) 04/27/22 22:56 Blood Culture - Preliminary Blood No Growth after 96 hours Assessment and Plan Assessment: Acute hypoxemic hypercapnic respiratory failure, secondary to cardiac arrest, related to hyperkalemia, status post extubation on 04/27/2022. End-stage renal disease. Acute coronavirus infection, without coronavirus associated pneumonia. Possible aspiration pneumonia. Fluid overload secondary to end-stage renal disease. History of CVA. Type 2 diabetes. Previous history of cardiac arrest. Diabetic retinopathy. History of depression. Plan: Plan dated 04/30/2022. The patient's currently not on oxygen treatment. The patient's room air saturat ions are 97%. Labs, x-rays, and medications are reviewed. The patient is not having any respiratory issues at this time. The patient continues on Augmentin. Additional recommendations and suggestions are forthcoming. Overall prognosis remains guarded. We will continue to follow and make recommendations along the way. Time with Patient: Less than 30
[2022-05-02 16:18] LABS: Glucose,Whole Blood 243 mg/dL (70-110)
[2022-05-02 17:32] LABS: Basophils # (A) 0.1 k/uL (0-0.2); Basophils % (A) 1 %; Eosinophils % (A) 0 %; HCT 31.5 % (34.0-46.0); HGB 10.5 gm/dL (11.4-16.0); Hypochromasia Slight; Lymphocytes # (A) 0.3 k/uL (1.0-4.8); Lymphocytes % (A) 4 %; MCH 30.9 pg (25.0-35.0); MCHC 33.3 g/dL (31.0-37.0); MCV 92.6 fL (80.0-100.0); Mean Platelet Volume 9.1; Monocytes # (A) 0.7 k/uL (0-1.0); Monocytes % (A) 8 %; Neutrophils # (A) 7.1 k/uL (1.3-7.7); Neutrophils % (A) 85 %; Platelet Count 314 k/uL (150-450); RDW 15.5 % (11.5-15.5); WBC 8.3 k/uL (3.8-10.6)
[2022-05-02 17:42] LABS: Calcium 9.1 mg/dL (8.4-10.2)
[2022-05-02 17:44] LABS: Potassium 3.7 mmol/L (3.5-5.1)
[2022-05-02 20:07] LABS: Glucose,Whole Blood 215 mg/dL (70-110)
[2022-05-02] MEDS: traZODone HCL 50 MG TAB PO PRN (20:55)
--- NOTE | 2022-05-02 23:33 | PN ---
PROGRESS NOTE DATE OF SERVICE: 05/02/2022 CHIEF COMPLAINT: Uncontrolled hypertension and diabetes. HISTORY OF PRESENT ILLNESS: This lady's numbers are doing well, and yesterday her blood sugars and blood pressure jumped slightly. My plan was to send her home today after dialysis, but I will hold off for 1 more day. This patient could never be under complete control. PHYSICAL EXAMINATION: GENERAL: She is awake and alert. CHEST: Clear. CARDIAC: Normal. ABDOMEN: Soft, nontender. EXTREMITIES: Normal. IMPRESSION: 1. Cardiac arrest. 2. Hyperkalemia. 3. Stage 5 chronic kidney disease, on dialysis. 4. Uncontrolled hypertension. 5. Uncontrolled type 1 diabetes mellitus. PLAN: Continue to monitor progress today. Try to discharge tomorrow. MMODL / IJN: [id number] /
[2022-05-03 01:24] LABS: Glucose,Whole Blood 347 mg/dL (70-110)
[2022-05-03] MEDS: HYDROmorphone 0.5 MG/0.5 ML SYRINGE IVP PRN ×3 (05:11→20:40)
[2022-05-03] MEDS: diphenhydrAMINE 50 MG/ML 1 ML VIAL IVP PRN ×3 (05:12→20:40)
[2022-05-03 06:09] LABS: Glucose,Whole Blood >600 mg/dL (70-110)
[2022-05-03 06:11] LABS: Glucose,Whole Blood >600 mg/dL (70-110)
[2022-05-03] MEDS: INSULIN DETEMIR (LEVEMIR) 100 UNIT/ML SYR SQ SCH (06:36)
[2022-05-03] MEDS: INSULIN ASPART (NovoLOG) 100 UNIT/ML VIAL SQ SCH ×4 (06:36→20:18)
[2022-05-03] MEDS: CALCIUM ACETATE 667 MG TAB PO SCH ×4 (06:36→20:31)
[2022-05-03] MEDS: DEXAMETHASONE SOD PHOSPHATE 10 MG/ML 1 ML VIAL IVP SCH ×4 (06:36→23:41)
[2022-05-03] MEDS: PANTOPRAZOLE 40 MG TABLET PO SCH (06:36)
[2022-05-03] MEDS: carvediloL 12.5 MG TAB PO SCH ×2 (06:36→20:20)
[2022-05-03 09:03] LABS: HCT 28.3 % (34.0-46.0); Hypochromasia Marked; MCHC 30.3 g/dL (31.0-37.0); Macrocytosis Slight; Mean Platelet Volume 9.5; Platelet Count 291 k/uL (150-450); RBC 2.77 m/uL (3.80-5.40); RDW 15.2 % (11.5-15.5); WBC 7.5 k/uL (3.8-10.6)
[2022-05-03 09:23] LABS: Albumin 3.2 g/dL (3.5-5.0); Calcium 8.2 mg/dL (8.4-10.2); Phosphorus 3.8 mg/dL (2.5-4.5); Potassium 4.2 mmol/L (3.5-5.1); Total Bilirubin 0.6 mg/dL (0.2-1.3); Total Protein 5.4 g/dL (6.3-8.2)
[2022-05-03 09:45] LABS: HGB 8.6 gm/dL (11.4-16.0); MCV 102.2 fL (80.0-100.0)
[2022-05-03] MEDS ORDERED: INSULIN ASPART (NovoLOG) 100 UNIT/ML VIAL SQ ONE (09:53)
[2022-05-03] MEDS: TORSEMIDE 20 MG TAB PO SCH (09:56)
[2022-05-03] MEDS: rOPINIRole HCL 4 MG TABLET PO SCH ×2 (09:56→20:20)
[2022-05-03] MEDS: DULoxetine HCL 30 MG CAPSULE.DR PO SCH ×2 (09:56→20:19)
[2022-05-03] MEDS: AMOXIC-POT CLAV 875-125MG 1 EACH TAB PO SCH ×2 (09:56→20:20)
[2022-05-03] MEDS: ASPIRIN 81 MG PO SCH (09:56)
[2022-05-03] MEDS: cloNIDine HCL 0.1 MG TAB PO SCH ×2 (09:56→20:19)
[2022-05-03] MEDS: buPROPion SR 150 MG TABLET.ER PO SCH ×2 (09:57→20:19)
[2022-05-03 10:47] LABS: Band Neutrophils % 1 %; Metamyelocytes # (M) 0.15 k/uL (0); Metamyelocytes % 2 %; Monocytes # (M) 1.05 k/uL (0-1.0); Myelocytes # (M) 0.08 k/uL (0); Myelocytes % 1 %; Neutrophils % (M) 71 %; Nucleated Red Blood Cells 0 /100 WBC (0-0); Total Cells Counted 200
[2022-05-03 10:50] LABS: Anisocytosis (M) Present; Poikilocytosis (M) Present
--- NOTE | 2022-05-03 10:53 | P.PN ---
Subjective Patient is seen in follow-up for end-stage renal disease. She is maintained on hemodialysis on Monday schedule. Tolerated 4 L ultrafiltration yesterday. Requesting another treatment of dialysis today. Denies chest pain. Blood sugar and blood pressure high this morning. Vital signs are stable. Blood pressure high. General: Awake. No acute distress. HEENT: Head exam is unremarkable. LUNGS: Breath sounds decreased. HEART: Rate and Rhythm are regular. ABDOMEN: Soft, no distention. EXTREMITITES: No edema. Objective - Vital Signs Vital signs: Vital Signs Temp 96.8 F L 05/03/22 08:00 Pulse 90 05/03/22 08:00 Resp 16 05/03/22 08:00 BP 198/98 05/03/22 08:00 Pulse Ox 94 L 05/03/22 08:00 FiO2 50 04/28/22 12:00 Intake & Output 05/02/22 05/03/22 05/03/22 18:59 06:59 18:59 Intake Total 780 222 Output Total 4300 Balance -3520 222 Weight 43.1 kg 50.3 kg Intake: Oral 480 222 Hemodialysis 300 Output: Hemodialysis 4300 Other: Voiding Method Toilet Toilet Toilet # Voids 3 0 # Bowel Movements 1 - Labs CBC & Chem 7: 05/03/22 08:24 05/03/22 08:24 Labs: Abnormal Lab Results - Last 24 Hours (Table) 05/02/22 05/02/22 05/02/22 Range/Units 12:01 16:17 17:07 RBC 3.40 L (3.80-5.40) m/uL Hgb 10.5 L (11.4-16.0) gm/dL Hct 31.5 L (34.0-46.0) % MCV (80.0-100.0) fL MCHC (31.0-37.0) g/dL Lymphocytes # 0.3 L (1.0-4.8) k/uL Sodium (137-145) mmol/L Chloride (98-107) mmol/L Carbon Dioxide (22-30) mmol/L BUN (7-17) mg/dL Creatinine (0.52-1.04) mg/dL Glucose (74-99) mg/dL POC Glucose (mg/dL) 200 H 243 H (70-110) mg/dL Calcium (8.4-10.2) mg/dL ALT (4-34) U/L Alkaline Phosphatase (38-126) U/L Total Protein (6.3-8.2) g/dL Albumin (3.5-5.0) g/dL 05/02/22 05/02/22 05/03/22 Range/Units 17:07 20:05 01:21 RBC (3.80-5.40) m/uL Hgb (11.4-16.0) gm/dL Hct (34.0-46.0) % MCV (80.0-100.0) fL MCHC (31.0-37.0) g/dL Lymphocytes # (1.0-4.8) k/uL Sodium (137-145) mmol/L Chloride (98-107) mmol/L Carbon Dioxide (22-30) mmol/L BUN 36 H (7-17) mg/dL Creatinine 2.37 H (0.52-1.04) mg/dL Glucose 249 H (74-99) mg/dL POC Glucose (mg/dL) 215 H 347 H (70-110) mg/dL Calcium (8.4-10.2) mg/dL ALT (4-34) U/L Alkaline Phosphatase (38-126) U/L Total Protein (6.3-8.2) g/dL Albumin (3.5-5.0) g/dL 05/03/22 05/03/22 05/03/22 Range/Units 06:08 06:09 08:24 RBC (3.80-5.40) m/uL Hgb (11.4-16.0) gm/dL Hct (34.0-46.0) % MCV (80.0-100.0) fL MCHC (31.0-37.0) g/dL Lymphocytes # (1.0-4.8) k/uL Sodium 127 L (137-145) mmol/L Chloride 93 L (98-107) mmol/L Carbon Dioxide 15 L (22-30) mmol/L BUN 73 H (7-17) mg/dL Creatinine 3.75 H (0.52-1.04) mg/dL Glucose 942 H* (74-99) mg/dL POC Glucose (mg/dL) >600 H >600 H (70-110) mg/dL Calcium 8.2 L (8.4-10.2) mg/dL ALT 46 H (4-34) U/L Alkaline Phosphatase 310 H (38-126) U/L Total Protein 5.4 L (6.3-8.2) g/dL Albumin 3.2 L (3.5-5.0) g/dL 05/03/22 Range/Units 08:24 RBC 2.77 L (3.80-5.40) m/uL Hgb 8.6 L D (11.4-16.0) gm/dL Hct 28.3 L (34.0-46.0) % MCV 102.2 H D (80.0-100.0) fL MCHC 30.3 L (31.0-37.0) g/dL Lymphocytes # (1.0-4.8) k/uL Sodium (137-145) mmol/L Chloride (98-107) mmol/L Carbon Dioxide (22-30) mmol/L BUN (7-17) mg/dL Creatinine (0.52-1.04) mg/dL Glucose (74-99) mg/dL POC Glucose (mg/dL) (70-110) mg/dL Calcium (8.4-10.2) mg/dL ALT (4-34) U/L Alkaline Phosphatase (38-126) U/L Total Protein (6.3-8.2) g/dL Albumin (3.5-5.0) g/dL Microbiology - Last 24 Hours (Table) 04/27/22 22:56 Blood Culture - Preliminary Blood No Growth after 120 hours Assessment and Plan Plan: Assessment: 1. End-stage renal disease maintained on hemodialysis on Monday schedule. 2. Volume overload. Improved with ultrafiltration. 3. COVID-19 infection. 4. Hypertension with chronic kidney disease. Blood pressure labile. Partially volume sensitive. 5. Status post cardiac arrest secondary to hyperkalemia and opioid use. 6. Hyperkalemia secondary to chronic kidney disease and hyperglycemia. Improved postdialysis. 7. Anemia of chronic kidney disease maintained on Aranesp. 8. Hypertonic hyponatremia secondary to hyperglycemia. 9. Diabetes mellitus. Blood sugars labile. 10. Metabolic acidosis secondary to severe hyperglycemia. Plan: Hemodialysis today mostly for ultrafiltration and another treatment tomorrow. Avoid medications that can raise potassium including ACEi/ARB. Avoid hydralazine and minoxidil due to history of pericardial effusion. Increase dose of Coreg. Blood sugar control.
[2022-05-03 11:55] LABS: Glucose,Whole Blood 405 mg/dL (70-110)
--- NOTE | 2022-05-03 14:36 | P.PN ---
Subjective Progress Note Date: 05/03/22 Principal diagnosis: Coronavirus infection. Reevaluated today on 04/29/22, patient remains in the ICU, remains on 3 L nasal cannula with O2 sat she is 100%, she is receiving hemodialysis this morning, she had 4 L of fluid removed on 04/28. Remains empirically on Zosyn for presumptive aspiration pneumonia she is now on insulin at 5.42 units per hour to control her blood sugars. Otherwise the patient is doing well, relatively asymptomatic. Hemoglobin is 7.6 WBC count is 8.4, basic metabolic profile is normal bicarb is 24 lites are normal Reevaluated today on 05/27/22, patient is doing well today, she is on 3 L nasal cannula, intermittently on BiPAP 05/02/50%, patient is sitting in bed, eating her breakfast, she had uneventful hemodialysis yesterday, and 2 L of fluids were removed. Her sugar is all over the place, it is fluctuating up and down, and that is to be addressed by the admitting physician. She is on Zosyn empirically for aspiration pneumonia, chest x-ray will be done in a.m. for follow-up on her aspiration pneumonia. Patient was also presented with COVID-19 infection, underlying COVID-19 pneumonia is not entirely ruled out. WBC count is 6.8 hemoglobin 8.4. Normal bicarb is 22 BUN is 50 creatinine is 2.80 blood sugar this morning is 204 Reevaluated today on 05/01/22, patient remains in the ICU, she is doing much better today, breathing a lot easier, she did undergo dialysis yesterday, and she had almost 2 L removed yesterday. Today the patient is doing great, her chest x-ray is showing dramatic improvement, patient is only on 2 L nasal douglas karissa, saturating well, and she does not seem to be in any distress. She remains on IV insulin at 2 units per hour, I'm recommending that we start long-acting insulin/Levemir insulin and sliding scale coverage, and I'll arrange for the patient to be transferred out of the ICU to a monitor bed on selective. WBC count today is 7.4 hemoglobin is 8.2. Basic metabolic profile is normal BUN is 54 creatinine 2.81, blood sugar is ranging between 274 and 400. Patient had negative C. diff. Progress note dated 05/02/2022. The patient appears to be doing relatively well. The patient took her off oxyg en on. She's on room air. No IV fluids. She's feeling well, without complaints. No new blood work today. Microbiologic studies are negative. Chest x-ray shows improved aeration. Progress note dated 05/03/2022. 31-year-old female again seen in room 365. The patient's on room air. She's not receiving any IV fluids. She has no new complaints. Current labs include a white count 7.5, hemoglobin 8.6, hematocrit 28.3, and normal platelet count. Sodium 127, potassium 4.2, chlorides 93, CO2 15, anion gap 19, BUN 73, and creatinine 3.75. Glucose is 942. Objective - Vital Signs Vital signs: Vital Signs Temp 96.8 F L 05/03/22 08:00 Pulse 90 05/03/22 08:00 Resp 16 05/03/22 08:00 BP 198/98 05/03/22 08:00 Pulse Ox 94 L 05/03/22 08:00 FiO2 50 04/28/22 12:00 Intake & Output 05/02/22 05/03/22 05/03/22 18:59 06:59 18:59 Intake Total 780 222 Output Total 4300 Balance -3520 222 Weight 43.1 kg 50.3 kg Intake: Oral 480 222 Hemodialysis 300 Output: Hemodialysis 4300 Other: Voiding Method Toilet Toilet Toilet # Voids 3 0 # Bowel Movements 1 - Exam No acute distress, oriented 3. Room air saturation is 94 %. HEENT examination is grossly unremarkable. Neck supple. Full range of motion. No adenopathy thyromegaly or neck vein distention. Cardiovascular examination reveals regular rhythm rate. S1-S2 normal. No S3 or S4. No discernible murmur noted. Heart rate 90 bpm. Lungs reveal clear breath sounds. Breath sounds are equal bilaterally. No adventitious lung sounds including wheezes rhonchi or crackles. Abdomen soft bowel sounds are heard. No masses or tenderness. Extremities are intact. No cyanosis clubbing or edema. Skin is without rash or lesion. Neurologic examination is brief but nonfocal. - Labs CBC & Chem 7: 05/03/22 08:24 05/03/22 08:24 Labs: Abnormal Lab Results - Last 24 Hours (Table) 05/02/22 05/02/22 05/02/22 Range/Units 16:17 17:07 17:07 RBC 3.40 L (3.80-5.40) m/uL Hgb 10.5 L (11.4-16.0) gm/dL Hct 31.5 L (34.0-46.0) % MCV (80.0-100.0) fL MCHC (31.0-37.0) g/dL Lymphocytes # 0.3 L (1.0-4.8) k/uL Lymphocytes # (Manual) (1.0-4.8) k/uL Monocytes # (Manual) (0-1.0) k/uL Metamyelocytes # (Man) (0) k/uL Myelocytes # (Manual) (0) k/uL Sodium (137-145) mmol/L Chloride (98-107) mmol/L Carbon Dioxide (22-30) mmol/L BUN 36 H (7-17) mg/dL Creatinine 2.37 H (0.52-1.04) mg/dL Glucose 249 H (74-99) mg/dL POC Glucose (mg/dL) 243 H (70-110) mg/dL Calcium (8.4-10.2) mg/dL ALT (4-34) U/L Alkaline Phosphatase (38-126) U/L Total Protein (6.3-8.2) g/dL Albumin (3.5-5.0) g/dL 05/02/22 05/03/22 05/03/22 Range/Units 20:05 01:21 06:08 RBC (3.80-5.40) m/uL Hgb (11.4-16.0) gm/dL Hct (34.0-46.0) % MCV (80.0-100.0) fL MCHC (31.0-37.0) g/dL Lymphocytes # (1.0-4.8) k/uL Lymphocytes # (Manual) (1.0-4.8) k/uL Monocytes # (Manual) (0-1.0) k/uL Metamyelocytes # (Man) (0) k/uL Myelocytes # (Manual) (0) k/uL Sodium (137-145) mmol/L Chloride (98-107) mmol/L Carbon Dioxide (22-30) mmol/L BUN (7-17) mg/dL Creatinine (0.52-1.04) mg/dL Glucose (74-99) mg/dL POC Glucose (mg/dL) 215 H 347 H >600 H (70-110) mg/dL Calcium (8.4-10.2) mg/dL ALT (4-34) U/L Alkaline Phosphatase (38-126) U/L Total Protein (6.3-8.2) g/dL Albumin (3.5-5.0) g/dL 05/03/22 05/03/22 05/03/22 Range/Units 06:09 08:24 08:24 RBC 2.77 L (3.80-5.40) m/uL Hgb 8.6 L D (11.4-16.0) gm/dL Hct 28.3 L (34.0-46.0) % MCV 102.2 H D (80.0-100.0) fL MCHC 30.3 L (31.0-37.0) g/dL Lymphocytes # (1.0-4.8) k/uL Lymphocytes # (Manual) 0.90 L (1.0-4.8) k/uL Monocytes # (Manual) 1.05 H (0-1.0) k/uL Metamyelocytes # (Man) 0.15 H (0) k/uL Myelocytes # (Manual) 0.08 H (0) k/uL Sodium 127 L (137-145) mmol/L Chloride 93 L (98-107) mmol/L Carbon Dioxide 15 L (22-30) mmol/L BUN 73 H (7-17) mg/dL Creatinine 3.75 H (0.52-1.04) mg/dL Glucose 942 H* (74-99) mg/dL POC Glucose (mg/dL) >600 H (70-110) mg/dL Calcium 8.2 L (8.4-10.2) mg/dL ALT 46 H (4-34) U/L Alkaline Phosphatase 310 H (38-126) U/L Total Protein 5.4 L (6.3-8.2) g/dL Albumin 3.2 L (3.5-5.0) g/dL 05/03/22 Range/Units 11:53 RBC (3.80-5.40) m/uL Hgb (11.4-16.0) gm/dL Hct (34.0-46.0) % MCV (80.0-100.0) fL MCHC (31.0-37.0) g/dL Lymphocytes # (1.0-4.8) k/uL Lymphocytes # (Manual) (1.0-4.8) k/uL Monocytes # (Manual) (0-1.0) k/uL Metamyelocytes # (Man) (0) k/uL Myelocytes # (Manual) (0) k/uL Sodium (137-145) mmol/L Chloride (98-107) mmol/L Carbon Dioxide (22-30) mmol/L BUN (7-17) mg/dL Creatinine (0.52-1.04) mg/dL Glucose (74-99) mg/dL POC Glucose (mg/dL) 405 H (70-110) mg/dL Calcium (8.4-10.2) mg/dL ALT (4-34) U/L Alkaline Phosphatase (38-126) U/L Total Protein (6.3-8.2) g/dL Albumin (3.5-5.0) g/dL Microbiology - Last 24 Hours (Table) 04/27/22 22:56 Blood Culture - Preliminary Blood No Growth after 120 hours Assessment and Plan Assessment: Acute hypoxemic hypercapnic respiratory failure, secondary to cardiac arrest, related to hyperkalemia, status post extubation on 04/27/2022. End-stage renal disease. Acute coronavirus infection, without coronavirus associated pneumonia. Possible aspiration pneumonia. Fluid overload secondary to end-stage renal disease. History of CVA. Type 2 diabetes. Previous history of cardiac arrest. Diabetic retinopathy. History of depression. Plan: Plan dated 04/30/2022. The patient's currently not on oxygen treatment. The patient's room air saturations are 97%. Labs, x-rays, and medications are reviewed. The patient is not having any respiratory issues at this time. The patient continues on Augmentin. Additional recommendations and suggestions are forthcoming. Overall prognosis remains guarded. We will continue to follow and make recommendations along the way. Plan dated 05/03/2022. The patient appears be doing relatively well. Room air saturation 94%. 2 L saturation 99%. The patient has no new complaints today. Labs, x-rays, and medications are reviewed. We will continue to follow make recommendations along the way. Prognosis is guarded. Time with Patient: Less than 30
[2022-05-03 14:39] LABS: Glucose,Whole Blood 30 mg/dL (70-110)
[2022-05-03] MEDS: ALBUTEROL HFA INHALER INHALATION PRN (15:21)
[2022-05-03 15:52] LABS: Glucose,Whole Blood 51 mg/dL (70-110)
[2022-05-03 15:52] LABS: Glucose,Whole Blood 42 mg/dL (70-110)
[2022-05-03 15:52] LABS: Glucose,Whole Blood 60 mg/dL (70-110)
[2022-05-03 17:06] LABS: Glucose,Whole Blood 47 mg/dL (70-110)
[2022-05-03 17:36] LABS: Glucose,Whole Blood 139 mg/dL (70-110)
[2022-05-03 19:33] LABS: % Iron Saturation 48.11 (12.00-45.00)
[2022-05-03 20:02] LABS: Glucose,Whole Blood 226 mg/dL (70-110)
[2022-05-03] MEDS: ENOXAPARIN 30 MG/0.3 ML SYRINGE SQ SCH (20:21)
--- NOTE | 2022-05-03 20:41 | PN ---
PROGRESS NOTE DATE OF SERVICE: 05/03/2022 CHIEF COMPLAINT: Renal failure, hypertension, and uncontrolled diabetes. HISTORY OF PRESENT ILLNESS: This lady is fairly stable today, although her blood sugar is very high again during the night. It was over 700. REVIEW OF SYSTEMS: She feels sleepy, but has no other symptoms. PHYSICAL EXAMINATION: CHEST: Clear. CARDIAC: Normal. ABDOMEN: Soft, nontender. She remains dehydrated. IMPRESSION: 1. Uncontrolled diabetes. 2. Uncontrolled hypertension. 3. Stage 5 chronic kidney disease. PLAN: She will be given a bolus of NovoLog, and her blood sugars will be followed. If she stabilizes, we will get her home. MMODL / IJN: [id number] /
[2022-05-03] MEDS: traZODone HCL 50 MG TAB PO PRN (23:40)
[2022-05-03] MEDS: LORazepam 1 MG TAB PO PRN (23:42)
[2022-05-03 23:54] LABS: Glucose,Whole Blood 400 mg/dL (70-110)
[2022-05-04 02:03] LABS: Glucose,Whole Blood 570 mg/dL (70-110)
[2022-05-04] MEDS ORDERED: INSULIN ASPART (NovoLOG) 100 UNIT/ML VIAL SQ ONE (02:33)
[2022-05-04] MEDS: HYDROmorphone 0.5 MG/0.5 ML SYRINGE IVP PRN ×4 (02:42→22:05)
[2022-05-04] MEDS: cloNIDine HCL 0.1 MG TAB PO SCH ×5 (02:42→22:05)
[2022-05-04] MEDS: diphenhydrAMINE 50 MG/ML 1 ML VIAL IVP PRN ×4 (02:43→22:05)
[2022-05-04 04:23] LABS: Glucose,Whole Blood 594 mg/dL (70-110)
[2022-05-04] MEDS: INSULIN ASPART (NovoLOG) 100 UNIT/ML VIAL SQ SCH ×4 (05:06→20:16)
[2022-05-04 06:16] LABS: Glucose,Whole Blood 308 mg/dL (70-110)
[2022-05-04] MEDS: PANTOPRAZOLE 40 MG TABLET PO SCH (06:37)
[2022-05-04] MEDS: DEXAMETHASONE SOD PHOSPHATE 10 MG/ML 1 ML VIAL IVP SCH ×4 (06:37→23:50)
[2022-05-04] MEDS: carvediloL 12.5 MG TAB PO SCH ×2 (06:37→17:11)
[2022-05-04] MEDS: INSULIN DETEMIR (LEVEMIR) 100 UNIT/ML SYR SQ SCH (06:37)
[2022-05-04] MEDS: CALCIUM ACETATE 667 MG TAB PO SCH ×3 (06:37→17:11)
[2022-05-04 08:14] LABS: Basophils # (A) 0.1 k/uL (0-0.2); Basophils % (A) 0 %; Eosinophils % (A) 0 %; HCT 26.4 % (34.0-46.0); Lymphocytes # (A) 0.8 k/uL (1.0-4.8); Lymphocytes % (A) 7 %; MCH 31.6 pg (25.0-35.0); MCHC 34.5 g/dL (31.0-37.0); Mean Platelet Volume 8.8; Monocytes # (A) 0.6 k/uL (0-1.0); Monocytes % (A) 5 %; Neutrophils # (A) 9.5 k/uL (1.3-7.7); Neutrophils % (A) 86 %; Platelet Count 411 k/uL (150-450); RBC 2.88 m/uL (3.80-5.40); RDW 15.7 % (11.5-15.5); WBC 11.1 k/uL (3.8-10.6)
[2022-05-04 08:16] LABS: HGB 9.1 gm/dL (11.4-16.0)
[2022-05-04 08:17] LABS: Calcium 9.3 mg/dL (8.4-10.2); Potassium 4.5 mmol/L (3.5-5.1)
--- NOTE | 2022-05-04 11:37 | P.PN ---
Subjective Patient is seen in follow-up for end-stage renal disease. She is maintained on hemodialysis on Monday schedule. Tolerated 3 L ultrafiltration yesterday. Currently tolerating dialysis well. Blood pressure better controlled today. Vital signs are stable. General: Awake. No acute distress. HEENT: Head exam is unremarkable. LUNGS: Breath sounds decreased. HEART: Rate and Rhythm are regular. ABDOMEN: Soft, no distention. EXTREMITITES: No edema. Objective - Vital Signs Vital signs: Vital Signs Temp 97.9 F 05/04/22 02:56 Pulse 80 05/04/22 09:04 Resp 16 05/04/22 09:04 BP 160/85 05/04/22 09:04 Pulse Ox 97 05/04/22 09:04 FiO2 50 04/28/22 12:00 Intake & Output 05/03/22 05/04/22 05/04/22 18:59 06:59 18:59 Intake Total 642 118 Output Total 3300 0 Balance -2658 0 118 Weight 49.8 kg Intake: Oral 342 118 Hemodialysis 300 Output: Gastric Drainage 0 Urine 0 Stool 0 Urine/Stool Mix 0 Emesis 0 Oral Regurgitation 0 Hemodialysis 3300 Other 0 Other: Voiding Method Toilet Toilet Toilet # Voids 0 # Bowel Movements 1 0 - Labs CBC & Chem 7: 05/04/22 07:52 05/04/22 07:52 Labs: Abnormal Lab Results - Last 24 Hours (Table) 05/03/22 05/03/22 05/03/22 Range/Units 08:24 11:53 14:37 WBC (3.8-10.6) k/uL RBC (3.80-5.40) m/uL Hgb (11.4-16.0) gm/dL Hct (34.0-46.0) % RDW (11.5-15.5) % Neutrophils # (1.3-7.7) k/uL Lymphocytes # (1.0-4.8) k/uL Sodium (137-145) mmol/L Chloride (98-107) mmol/L Carbon Dioxide (22-30) mmol/L BUN (7-17) mg/dL Creatinine (0.52-1.04) mg/dL POC Glucose (mg/dL) 405 H 30 L (70-110) mg/dL % Saturation 48.11 H (12.00-45.00) Transferrin 193.0 L (204.0-354.0) mg/dL Ferritin 1979.0 H (10.0-291.0) ng/mL 05/03/22 05/03/22 05/03/22 Range/Units 14:56 15:13 15:32 WBC (3.8-10.6) k/uL RBC (3.80-5.40) m/uL Hgb (11.4-16.0) gm/dL Hct (34.0-46.0) % RDW (11.5-15.5) % Neutrophils # (1.3-7.7) k/uL Lymphocytes # (1.0-4.8) k/uL Sodium (137-145) mmol/L Chloride (98-107) mmol/L Carbon Dioxide (22-30) mmol/L BUN (7-17) mg/dL Creatinine (0.52-1.04) mg/dL POC Glucose (mg/dL) 42 L 51 L 60 L (70-110) mg/dL % Saturation (12.00-45.00) Transferrin (204.0-354.0) mg/dL Ferritin (10.0-291.0) ng/mL 05/03/22 05/03/22 05/03/22 Range/Units 17:01 17:34 19:59 WBC (3.8-10.6) k/uL RBC (3.80-5.40) m/uL Hgb (11.4-16.0) gm/dL Hct (34.0-46.0) % RDW (11.5-15.5) % Neutrophils # (1.3-7.7) k/uL Lymphocytes # (1.0-4.8) k/uL Sodium (137-145) mmol/L Chloride (98-107) mmol/L Carbon Dioxide (22-30) mmol/L BUN (7-17) mg/dL Creatinine (0.52-1.04) mg/dL POC Glucose (mg/dL) 47 L 139 H 226 H (70-110) mg/dL % Saturation (12.00-45.00) Transferrin (204.0-354.0) mg/dL Ferritin (10.0-291.0) ng/mL 05/03/22 05/04/22 05/04/22 Range/Units 23:52 02:00 04:21 WBC (3.8-10.6) k/uL RBC (3.80-5.40) m/uL Hgb (11.4-16.0) gm/dL Hct (34.0-46.0) % RDW (11.5-15.5) % Neutrophils # (1.3-7.7) k/uL Lymphocytes # (1.0-4.8) k/uL Sodium (137-145) mmol/L Chloride (98-107) mmol/L Carbon Dioxide (22-30) mmol/L BUN (7-17) mg/dL Creatinine (0.52-1.04) mg/dL POC Glucose (mg/dL) 400 H 570 H 594 H (70-110) mg/dL % Saturation (12.00-45.00) Transferrin (204.0-354.0) mg/dL Ferritin (10.0-291.0) ng/mL 05/04/22 05/04/22 05/04/22 Range/Units 06:14 07:52 07:52 WBC 11.1 H (3.8-10.6) k/uL RBC 2.88 L (3.80-5.40) m/uL Hgb 9.1 L (11.4-16.0) gm/dL Hct 26.4 L (34.0-46.0) % RDW 15.7 H (11.5-15.5) % Neutrophils # 9.5 H (1.3-7.7) k/uL Lymphocytes # 0.8 L (1.0-4.8) k/uL Sodium 133 L (137-145) mmol/L Chloride 97 L (98-107) mmol/L Carbon Dioxide 18 L (22-30) mmol/L BUN 112 H* (7-17) mg/dL Creatinine 5.07 H (0.52-1.04) mg/dL POC Glucose (mg/dL) 308 H (70-110) mg/dL % Saturation (12.00-45.00) Transferrin (204.0-354.0) mg/dL Ferritin (10.0-291.0) ng/mL Microbiology - Last 24 Hours (Table) 04/27/22 22:56 Blood Culture - Final Blood No Growth after 144 hours Assessment and Plan Plan: Assessment: 1. End-stage renal disease maintained on hemodialysis on Monday schedule. 2. Volume overload. Improved with ultrafiltration. 3. COVID-19 infection. 4. Hypertension with chronic kidney disease. Blood pressure labile. Partially volume sensitive. 5. Status post cardiac arrest secondary to hyperkalemia and opioid use. 6. Hyperkalemia secondary to chronic kidney disease and hyperglycemia. Improved postdialysis. 7. Anemia of chronic kidney disease maintained on Aranesp. 8. Hypertonic hyponatremia secondary to hyperglycemia. Improved. 9. Diabetes mellitus. Blood sugars labile. 10. Metabolic acidosis secondary to severe hyperglycemia. Improved. Expect further improvement postdialysis. Plan: Currently seen while undergoing hemodialysis. Avoid medications that can raise potassium including ACEi/ARB. Avoid hydralazine and minoxidil due to history of pericardial effusion. Blood sugar control.
[2022-05-04 11:50] LABS: Glucose,Whole Blood 84 mg/dL (70-110)
[2022-05-04] MEDS: rOPINIRole HCL 4 MG TABLET PO SCH ×2 (13:35→20:15)
[2022-05-04] MEDS: ENOXAPARIN 30 MG/0.3 ML SYRINGE SQ SCH (13:35)
[2022-05-04] MEDS: DULoxetine HCL 30 MG CAPSULE.DR PO SCH ×2 (13:37→20:15)
[2022-05-04] MEDS: TORSEMIDE 20 MG TAB PO SCH (13:37)
[2022-05-04] MEDS: buPROPion SR 150 MG TABLET.ER PO SCH ×2 (13:37→20:15)
[2022-05-04] MEDS: ASPIRIN 81 MG PO SCH (13:37)
[2022-05-04] MEDS: AMOXIC-POT CLAV 875-125MG 1 EACH TAB PO SCH ×2 (13:38→20:15)
[2022-05-04] MEDS: ACETAMINOPHEN TAB 325 MG TAB PO PRN (13:38)
[2022-05-04 14:32] LABS: MCV 91.7 fL (80.0-100.0)
[2022-05-04] MEDS: ALBUTEROL HFA INHALER INHALATION PRN ×2 (16:02→20:26)
[2022-05-04 16:40] LABS: Glucose,Whole Blood 197 mg/dL (70-110)
--- NOTE | 2022-05-04 16:45 | P.PN ---
Subjective Progress Note Date: 05/04/22 Principal diagnosis: Coronavirus infection. Reevaluated today on 04/29/22, patient remains in the ICU, remains on 3 L nasal cannula with O2 sat she is 100%, she is receiving hemodialysis this morning, she had 4 L of fluid removed on 04/28. Remains empirically on Zosyn for presumptive aspiration pneumonia she is now on insulin at 5.42 units per hour to control her blood sugars. Otherwise the patient is doing well, relatively asymptomatic. Hemoglobin is 7.6 WBC count is 8.4, basic metabolic profile is normal bicarb is 24 lites are normal Reevaluated today on 05/27/22, patient is doing well today, she is on 3 L nasal cannula, intermittently on BiPAP 05/02/50%, patient is sitting in bed, eating her breakfast, she had uneventful hemodialysis yesterday, and 2 L of fluids were removed. Her sugar is all over the place, it is fluctuating up and down, and that is to be addressed by the admitting physician. She is on Zosyn empirically for aspiration pneumonia, chest x-ray will be done in a.m. for follow-up on her aspiration pneumonia. Patient was also presented with COVID-19 infection, underlying COVID-19 pneumonia is not entirely ruled out. WBC count is 6.8 hemoglobin 8.4. Normal bicarb is 22 BUN is 50 creatinine is 2.80 blood sugar this morning is 204 Reevaluated today on 05/01/22, patient remains in the ICU, she is doing much better today, breathing a lot easier, she did undergo dialysis yesterday, and she had almost 2 L removed yesterday. Today the patient is doing great, her chest x-ray is showing dramatic improvement, patient is only on 2 L nasal douglas karissa, saturating well, and she does not seem to be in any distress. She remains on IV insulin at 2 units per hour, I'm recommending that we start long-acting insulin/Levemir insulin and sliding scale coverage, and I'll arrange for the patient to be transferred out of the ICU to a monitor bed on selective. WBC count today is 7.4 hemoglobin is 8.2. Basic metabolic profile is normal BUN is 54 creatinine 2.81, blood sugar is ranging between 274 and 400. Patient had negative C. diff. Progress note dated 05/02/2022. The patient appears to be doing relatively well. The patient took her off oxyg en on. She's on room air. No IV fluids. She's feeling well, without complaints. No new blood work today. Microbiologic studies are negative. Chest x-ray shows improved aeration. Progress note dated 05/03/2022. 31-year-old female again seen in room 365. The patient's on room air. She's not receiving any IV fluids. She has no new complaints. Current labs include a white count 7.5, hemoglobin 8.6, hematocrit 28.3, and normal platelet count. Sodium 127, potassium 4.2, chlorides 93, CO2 15, anion gap 19, BUN 73, and creatinine 3.75. Glucose is 942. Progress note dated 05/04/2022. 31-year-old female again seen in room 365. The patient's currently not receiving any IV fluids. She is on room air. She's actually undergoing hemodialysis today. She has no new complaints today. White count 11.1, hemoglobin 9.1, hematocrit 26.4, and platelet count 411,000. Sodium 133, potassium 4.5, chlorides 97, CO2 18, anion gap 18, BUN 112, and creatinine 5.07. Objective - Vital Signs Vital signs: Vital Signs Temp 98.1 F 05/04/22 16:00 Pulse 86 05/04/22 16:00 Resp 14 05/04/22 16:00 BP 138/82 05/04/22 16:00 Pulse Ox 96 05/04/22 16:00 FiO2 50 04/28/22 12:00 Intake & Output 05/03/22 05/04/22 05/04/22 18:59 06:59 18:59 Intake Total 642 118 Output Total 3300 0 Balance -2658 0 118 Weight 49.8 kg Intake: Oral 342 118 Hemodialysis 300 Output: Gastric Drainage 0 Urine 0 Stool 0 Urine/Stool Mix 0 Emesis 0 Oral Regurgitation 0 Hemodialysis 3300 Other 0 Other: Voiding Method Toilet Toilet Toilet # Voids 0 # Bowel Movements 1 0 1 - Exam No acute distress, oriented 3. Room air saturation is 96 %. HEENT examination is grossly unremarkable. Neck supple. Full range of motion. No adenopathy thyromegaly or neck vein distention. Cardiovascular examination reveals regular rhythm rate. S1-S2 normal. No S3 or S4. No discernible murmur noted. Heart rate 70 bpm. Lungs reveal clear breath sounds. Breath sounds are equal bilaterally. No adventitious lung sounds including wheezes rhonchi or crackles. Abdomen soft bowel sounds are heard. No masses or tenderness. Extremities are intact. No cyanosis clubbing or edema. Skin is without rash or lesion. Neurologic examination is brief but nonfocal. - Labs CBC & Chem 7: 05/04/22 07:52 05/04/22 07:52 Labs: Abnormal Lab Results - Last 24 Hours (Table) 05/03/22 05/03/22 05/03/22 Range/Units 08:24 17:01 17:34 WBC (3.8-10.6) k/uL RBC (3.80-5.40) m/uL Hgb (11.4-16.0) gm/dL Hct (34.0-46.0) % RDW (11.5-15.5) % Neutrophils # (1.3-7.7) k/uL Lymphocytes # (1.0-4.8) k/uL Sodium (137-145) mmol/L Chloride (98-107) mmol/L Carbon Dioxide (22-30) mmol/L BUN (7-17) mg/dL Creatinine (0.52-1.04) mg/dL POC Glucose (mg/dL) 47 L 139 H (70-110) mg/dL % Saturation 48.11 H (12.00-45.00) Transferrin 193.0 L (204.0-354.0) mg/dL Ferritin 1979.0 H (10.0-291.0) ng/mL 05/03/22 05/03/22 05/04/22 Range/Units 19:59 23:52 02:00 WBC (3.8-10.6) k/uL RBC (3.80-5.40) m/uL Hgb (11.4-16.0) gm/dL Hct (34.0-46.0) % RDW (11.5-15.5) % Neutrophils # (1.3-7.7) k/uL Lymphocytes # (1.0-4.8) k/uL Sodium (137-145) mmol/L Chloride (98-107) mmol/L Carbon Dioxide (22-30) mmol/L BUN (7-17) mg/dL Creatinine (0.52-1.04) mg/dL POC Glucose (mg/dL) 226 H 400 H 570 H (70-110) mg/dL % Saturation (12.00-45.00) Transferrin (204.0-354.0) mg/dL Ferritin (10.0-291.0) ng/mL 05/04/22 05/04/22 05/04/22 Range/Units 04:21 06:14 07:52 WBC 11.1 H (3.8-10.6) k/uL RBC 2.88 L (3.80-5.40) m/uL Hgb 9.1 L (11.4-16.0) gm/dL Hct 26.4 L (34.0-46.0) % RDW 15.7 H (11.5-15.5) % Neutrophils # 9.5 H (1.3-7.7) k/uL Lymphocytes # 0.8 L (1.0-4.8) k/uL Sodium (137-145) mmol/L Chloride (98-107) mmol/L Carbon Dioxide (22-30) mmol/L BUN (7-17) mg/dL Creatinine (0.52-1.04) mg/dL POC Glucose (mg/dL) 594 H 308 H (70-110) mg/dL % Saturation (12.00-45.00) Transferrin (204.0-354.0) mg/dL Ferritin (10.0-291.0) ng/mL 05/04/22 05/04/22 Range/Units 07:52 16:39 WBC (3.8-10.6) k/uL RBC (3.80-5.40) m/uL Hgb (11.4-16.0) gm/dL Hct (34.0-46.0) % RDW (11.5-15.5) % Neutrophils # (1.3-7.7) k/uL Lymphocytes # (1.0-4.8) k/uL Sodium 133 L (137-145) mmol/L Chloride 97 L (98-107) mmol/L Carbon Dioxide 18 L (22-30) mmol/L BUN 112 H* (7-17) mg/dL Creatinine 5.07 H (0.52-1.04) mg/dL POC Glucose (mg/dL) 197 H (70-110) mg/dL % Saturation (12.00-45.00) Transferrin (204.0-354.0) mg/dL Ferritin (10.0-291.0) ng/mL Microbiology - Last 24 Hours (Table) 04/27/22 22:56 Blood Culture - Final Blood No Growth after 144 hours Assessment and Plan Assessment: Acute hypoxemic hypercapnic respiratory failure, secondary to cardiac arrest, related to hyperkalemia, status post extubation on 04/27/2022. End-stage renal disease. Acute coronavirus infection, without coronavirus associated pneumonia. Possible aspiration pneumonia. Fluid overload secondary to end-stage renal disease. History of CVA. Type 2 diabetes. Previous history of cardiac arrest. Diabetic retinopathy. History of depression. Plan: Plan dated 04/30/2022. The patient's currently not on oxygen treatment. The patient's room air saturations are 97%. Labs, x-rays, and medications are reviewed. The patient is not having any respiratory issues at this time. The patient continues on Augmentin. Additional recommendations and suggestions are forthcoming. Overall prognosis remains guarded. We will continue to follow and make recommendations along the way. Plan dated 05/03/2022. The patient appears be doing relatively well. Room air saturation 94%. 2 L saturation 99%. The patient has no new complaints today. Labs, x-rays, and medications are reviewed. We will continue to follow make recommendations along the way. Prognosis is guarded. Plan dated 05/04/2022. The patient's currently undergoing hemodialysis. She stable clinically. Blood pressure stable. Respiratory status is stable. She's on room air. Not receiving any IV fluids. Labs, x-rays, and medications are reviewed. We will continue to follow and make recommendations along the way. Prognosis is certainly guarded in this patient. Time with Patient: Less than 30
[2022-05-04] MEDS: LORazepam 1 MG TAB PO PRN (19:43)
[2022-05-04 20:01] LABS: Glucose,Whole Blood 273 mg/dL (70-110)
[2022-05-04] MEDS: traZODone HCL 50 MG TAB PO PRN (22:05)
[2022-05-05 02:01] LABS: Glucose,Whole Blood 517 mg/dL (70-110)
[2022-05-05] MEDS ORDERED: INSULIN ASPART (NovoLOG) 100 UNIT/ML VIAL SQ ONE (02:08)
[2022-05-05] MEDS: diphenhydrAMINE 50 MG/ML 1 ML VIAL IVP PRN ×4 (04:08→23:09)
[2022-05-05] MEDS: HYDROmorphone 0.5 MG/0.5 ML SYRINGE IVP PRN ×4 (04:08→23:11)
[2022-05-05] MEDS: LORazepam 1 MG TAB PO PRN (05:33)
[2022-05-05 06:23] LABS: Glucose,Whole Blood 277 mg/dL (70-110)
[2022-05-05] MEDS: CALCIUM ACETATE 667 MG TAB PO SCH ×3 (06:39→17:08)
[2022-05-05] MEDS: carvediloL 12.5 MG TAB PO SCH ×2 (06:39→17:08)
[2022-05-05] MEDS: PANTOPRAZOLE 40 MG TABLET PO SCH (06:39)
[2022-05-05] MEDS: INSULIN ASPART (NovoLOG) 100 UNIT/ML VIAL SQ SCH ×4 (06:40→20:21)
[2022-05-05] MEDS: INSULIN DETEMIR (LEVEMIR) 100 UNIT/ML SYR SQ SCH (06:42)
[2022-05-05] MEDS: ALBUTEROL HFA INHALER INHALATION PRN ×4 (09:03→20:22)
[2022-05-05] MEDS: ACETAMINOPHEN TAB 325 MG TAB PO PRN ×2 (09:49→20:21)
--- NOTE | 2022-05-05 11:15 | P.PN ---
Subjective Patient is seen in follow-up for end-stage renal disease. She is maintained on hemodialysis on Monday schedule. Currently tolerating dialysis well. No active complaints. Vital signs are stable. General: Awake. No acute distress. HEENT: Head exam is unremarkable. LUNGS: Breath sounds decreased. HEART: Rate and Rhythm are regular. ABDOMEN: Soft, no distention. EXTREMITITES: No edema. Objective - Vital Signs Vital signs: Vital Signs Temp 98.0 F 05/05/22 00:00 Pulse 87 05/05/22 04:00 Resp 18 05/05/22 04:00 BP 173/88 05/05/22 04:00 Pulse Ox 97 05/05/22 04:00 FiO2 50 04/28/22 12:00 Intake & Output 05/04/22 05/05/22 05/05/22 18:59 06:59 18:59 Intake Total 236 10 236 Balance 236 10 236 Intake: IV 10 Invasive Line 7 10 Oral 236 236 Other: Voiding Method Toilet Toilet # Voids 1 # Bowel Movements 1 1 - Labs CBC & Chem 7: 05/04/22 07:52 05/04/22 07:52 Labs: Abnormal Lab Results - Last 24 Hours (Table) 05/04/22 05/04/22 05/05/22 Range/Units 16:39 19:59 01:59 POC Glucose (mg/dL) 197 H 273 H 517 H (70-110) mg/dL 05/05/22 Range/Units 06:21 POC Glucose (mg/dL) 277 H (70-110) mg/dL Assessment and Plan Plan: Assessment: 1. End-stage renal disease maintained on hemodialysis on Monday schedule. 2. Volume overload. Improved with ultrafiltration. 3. COVID-19 infection. 4. Hypertension with chronic kidney disease. Blood pressure labile. Partially volume sensitive and exacerbated by steroids. 5. Status post cardiac arrest secondary to hyperkalemia and opioid use. 6. Hyperkalemia secondary to chronic kidney disease and hyperglycemia. Improved postdialysis. 7. Anemia of chronic kidney disease maintained on Aranesp. 8. Hypertonic hyponatremia secondary to hyperglycemia. Improved. 9. Diabetes mellitus. Blood sugars labile. 10. Metabolic acidosis secondary to chronic kidney disease and severe hyperglycemia. Improved. Expect further improvement postdialysis. 11. Chronic kidney disease mineral bone disease. Phosphorus 3.8 dated 05/03/2022. On PhosLo. Plan: Currently seen while undergoing hemodialysis. Another treatment tomorrow per her outpatient schedule. Avoid medications that can raise potassium including ACEi/ARB. Avoid hydralazine and minoxidil due to history of pericardial effusion. Blood sugar control.
[2022-05-05 11:51] LABS: Glucose,Whole Blood 73 mg/dL (70-110)
[2022-05-05] MEDS: ASPIRIN 81 MG PO SCH (12:17)
[2022-05-05] MEDS: buPROPion SR 150 MG TABLET.ER PO SCH ×2 (12:17→20:20)
[2022-05-05] MEDS: rOPINIRole HCL 4 MG TABLET PO SCH ×2 (12:17→20:20)
[2022-05-05] MEDS: TORSEMIDE 20 MG TAB PO SCH (12:18)
[2022-05-05] MEDS: cloNIDine HCL 0.1 MG TAB PO SCH ×3 (12:18→23:09)
[2022-05-05] MEDS: DULoxetine HCL 30 MG CAPSULE.DR PO SCH ×2 (12:18→20:20)
[2022-05-05] MEDS: ENOXAPARIN 30 MG/0.3 ML SYRINGE SQ SCH (12:19)
[2022-05-05] MEDS: AMOXIC-POT CLAV 875-125MG 1 EACH TAB PO SCH ×2 (12:19→20:20)
--- NOTE | 2022-05-05 12:37 | P.PN ---
Subjective Progress Note Date: 05/05/22 Principal diagnosis: Coronavirus infection. Reevaluated today on 04/29/22, patient remains in the ICU, remains on 3 L nasal cannula with O2 sat she is 100%, she is receiving hemodialysis this morning, she had 4 L of fluid removed on 04/28. Remains empirically on Zosyn for presumptive aspiration pneumonia she is now on insulin at 5.42 units per hour to control her blood sugars. Otherwise the patient is doing well, relatively asymptomatic. Hemoglobin is 7.6 WBC count is 8.4, basic metabolic profile is normal bicarb is 24 lites are normal Reevaluated today on 05/27/22, patient is doing well today, she is on 3 L nasal cannula, intermittently on BiPAP 05/02/50%, patient is sitting in bed, eating her breakfast, she had uneventful hemodialysis yesterday, and 2 L of fluids were removed. Her sugar is all over the place, it is fluctuating up and down, and that is to be addressed by the admitting physician. She is on Zosyn empirically for aspiration pneumonia, chest x-ray will be done in a.m. for follow-up on her aspiration pneumonia. Patient was also presented with COVID-19 infection, underlying COVID-19 pneumonia is not entirely ruled out. WBC count is 6.8 hemoglobin 8.4. Normal bicarb is 22 BUN is 50 creatinine is 2.80 blood sugar this morning is 204 Reevaluated today on 05/01/22, patient remains in the ICU, she is doing much better today, breathing a lot easier, she did undergo dialysis yesterday, and she had almost 2 L removed yesterday. Today the patient is doing great, her chest x-ray is showing dramatic improvement, patient is only on 2 L nasal douglas karissa, saturating well, and she does not seem to be in any distress. She remains on IV insulin at 2 units per hour, I'm recommending that we start long-acting insulin/Levemir insulin and sliding scale coverage, and I'll arrange for the patient to be transferred out of the ICU to a monitor bed on selective. WBC count today is 7.4 hemoglobin is 8.2. Basic metabolic profile is normal BUN is 54 creatinine 2.81, blood sugar is ranging between 274 and 400. Patient had negative C. diff. Progress note dated 05/02/2022. The patient appears to be doing relatively well. The patient took her off oxyg en on. She's on room air. No IV fluids. She's feeling well, without complaints. No new blood work today. Microbiologic studies are negative. Chest x-ray shows improved aeration. Progress note dated 05/03/2022. 31-year-old female again seen in room 365. The patient's on room air. She's not receiving any IV fluids. She has no new complaints. Current labs include a white count 7.5, hemoglobin 8.6, hematocrit 28.3, and normal platelet count. Sodium 127, potassium 4.2, chlorides 93, CO2 15, anion gap 19, BUN 73, and creatinine 3.75. Glucose is 942. Progress note dated 05/04/2022. 31-year-old female again seen in room 365. The patient's currently not receiving any IV fluids. She is on room air. She's actually undergoing hemodialysis today. She has no new complaints today. White count 11.1, hemoglobin 9.1, hematocrit 26.4, and platelet count 411,000. Sodium 133, potassium 4.5, chlorides 97, CO2 18, anion gap 18, BUN 112, and creatinine 5.07. Progress note dated 05/05/2022. 31-year-old female seen in room 365. The patient is undergoing hemodialysis today. The plan is to remove 2 L today. She had hemodialysis on May 04, and 4 L was removed. She's on room air. No IV fluids. She has no complaints today. No new labs today other than a glucose of 73. Objective - Vital Signs Vital signs: Vital Signs Temp 97.7 F 05/05/22 12:07 Pulse 77 05/05/22 12:07 Resp 16 05/05/22 12:07 BP 135/70 05/05/22 12:07 Pulse Ox 97 05/05/22 08:00 FiO2 50 04/28/22 12:00 Intake & Output 05/04/22 05/05/22 05/05/22 18:59 06:59 18:59 Intake Total 236 10 536 Output Total 2800 Balance 236 10 -2264 Weight 49.8 kg Intake: IV 10 Invasive Line 7 10 Oral 236 236 Hemodialysis 300 Output: Hemodialysis 2800 Other: Voiding Method Toilet Toilet Toilet # Voids 1 # Bowel Movements 1 1 - Exam No acute distress, oriented 3. Room air saturation is 97 %. HEENT examination is grossly unremarkable. Neck supple. Full range of motion. No adenopathy thyromegaly or neck vein distention. Cardiovascular examination reveals regular rhythm rate. S1-S2 normal. No S3 or S4. No discernible murmur noted. Heart rate 77 bpm. Lungs reveal clear breath sounds. Breath sounds are equal bilaterally. No adventitious lung sounds including wheezes rhonchi or crackles. Abdomen soft bowel sounds are heard. No masses or tenderness. Extremities are intact. No cyanosis clubbing or edema. Skin is without rash or lesion. Neurologic examination is brief but nonfocal. - Labs CBC & Chem 7: 05/04/22 07:52 05/04/22 07:52 Labs: Abnormal Lab Results - Last 24 Hours (Table) 05/04/22 05/04/22 05/05/22 Range/Units 16:39 19:59 01:59 POC Glucose (mg/dL) 197 H 273 H 517 H (70-110) mg/dL 05/05/22 Range/Units 06:21 POC Glucose (mg/dL) 277 H (70-110) mg/dL Assessment and Plan Assessment: Acute hypoxemic hypercapnic respiratory failure, secondary to cardiac arrest, related to hyperkalemia, status post extubation on 04/27/2022. End-stage renal disease, currently undergoing hemodialysis. Acute coronavirus infection, without coronavirus associated pneumonia. Possible aspiration pneumonia. Fluid overload secondary to end-stage renal disease. History of CVA. Type 2 diabetes. Previous history of cardiac arrest. Diabetic retinopathy. History of depression. Plan: Plan dated 04/30/2022. The patient's currently not on oxygen treatment. The patient's room air saturations are 97%. Labs, x-rays, and medications are reviewed. The patient is not having any respiratory issues at this time. The patient continues on Augmentin. Additional recommendations and suggestions are forthcoming. Overall prognosis remains guarded. We will continue to follow and make recommendations along the way. Plan dated 05/03/2022. The patient appears be doing relatively well. Room air saturation 94%. 2 L saturation 99%. The patient has no new complaints today. Labs, x-rays, and medications are reviewed. We will continue to follow make recommendations along the way. Prognosis is guarded. Plan dated 05/04/2022. The patient's currently undergoing hemodialysis. She stable clinically. Blood pressure stable. Respiratory status is stable. She's on room air. Not receiving any IV fluids. Labs, x-rays, and medications are reviewed. We will continue to follow and make recommendations along the way. Prognosis is certainly guarded in this patient. Plan dated 05/05/2022. The patient appears be doing reasonably well. She's on room air. No IV fluids. She is having almost daily hemodialysis. The plan is to remove 2 L today. 4 L was removed yesterday, May 04. Labs, x-rays, and medications are all reviewed. Prognosis is guarded. We will continue to follow and make recommendations along the way. Time with Patient: Less than 30
[2022-05-05] MEDS: hydrALAZINE HCL 50 MG TAB PO SCH ×3 (13:44→23:09)
[2022-05-05 16:18] LABS: Glucose,Whole Blood 157 mg/dL (70-110)
[2022-05-05 20:05] LABS: Glucose,Whole Blood 158 mg/dL (70-110)
--- NOTE | 2022-05-05 22:29 | PN ---
PROGRESS NOTE DATE OF SERVICE: 05/04/2022 CHIEF COMPLAINT: Hypertension and uncontrolled diabetes. HISTORY OF PRESENT ILLNESS: This lady's blood sugars are further out of control. She is going up to 600 to 700 at night and dropping down into normal ranges in daytime. She is not offering any complaints except her usual one of generalized pain. PHYSICAL EXAMINATION: CHEST: Clear. CARDIAC: Demonstrated sinus rhythm. ABDOMEN: Soft, nontender. EXTREMITIES: Normal. IMPRESSION: 1. Uncontrolled hypertension. 2. Uncontrolled type 1 diabetes mellitus. 3. Amblyopia. 4. Renal failure. PLAN: Continue to try to adjust medication to get better control of her blood sugars as well as her blood pressure while dialysis continues. MMODL / IJN: [id number] /
--- NOTE | 2022-05-05 23:29 | PN ---
PROGRESS NOTE DATE OF SERVICE: 05/05/2022 CHIEF COMPLAINT: Uncontrolled hypertension and diabetes. HISTORY OF PRESENT ILLNESS: This lady's blood pressures are still bouncing around somewhat, but had been fairly good over the last 24 hours. Her sugars have been very high. She was on steroids and these will be stopped. Other than that, she is doing well. PHYSICAL EXAMINATION: CHEST: Breath sounds are clear. CARDIAC: Normal. ABDOMEN: Soft. IMPRESSION: 1. Uncontrolled hypertension. 2. Uncontrolled type 1 insulin-dependent diabetes mellitus. 3. Amblyopia. 4. Stage 5 chronic kidney disease and dialysis. 5. Depression. PLAN: 1. Withhold steroids and monitor her vital signs and strength. 2. Increase the Lantus once again. 3. Continue to hope that she could be discharged sometime soon. MMODL / IJN: [id number] /
[2022-05-05] MEDS: traZODone HCL 50 MG TAB PO PRN (23:37)
[2022-05-06 01:59] LABS: Glucose,Whole Blood 264 mg/dL (70-110)
[2022-05-06] MEDS: ACETAMINOPHEN TAB 325 MG TAB PO PRN ×3 (03:11→15:22)
[2022-05-06] MEDS: LORazepam 1 MG TAB PO PRN (03:11)
[2022-05-06] MEDS: diphenhydrAMINE 50 MG/ML 1 ML VIAL IVP PRN ×3 (05:29→19:40)
[2022-05-06] MEDS: HYDROmorphone 0.5 MG/0.5 ML SYRINGE IVP PRN ×3 (05:29→19:40)
[2022-05-06 06:17] LABS: Glucose,Whole Blood 494 mg/dL (70-110)
[2022-05-06] MEDS: INSULIN ASPART (NovoLOG) 100 UNIT/ML VIAL SQ SCH ×4 (06:45→20:14)
[2022-05-06] MEDS: PANTOPRAZOLE 40 MG TABLET PO SCH (06:45)
[2022-05-06] MEDS: carvediloL 12.5 MG TAB PO SCH ×2 (06:45→17:59)
[2022-05-06] MEDS: CALCIUM ACETATE 667 MG TAB PO SCH ×3 (06:45→17:59)
[2022-05-06 09:17] LABS: Calcium 8.7 mg/dL (8.4-10.2); Potassium 5.1 mmol/L (3.5-5.1)
[2022-05-06] MEDS: TORSEMIDE 20 MG TAB PO SCH (09:25)
[2022-05-06] MEDS: AMOXIC-POT CLAV 875-125MG 1 EACH TAB PO SCH ×2 (09:26→19:38)
[2022-05-06] MEDS: buPROPion SR 150 MG TABLET.ER PO SCH ×2 (09:26→20:13)
[2022-05-06] MEDS: ASPIRIN 81 MG PO SCH (09:26)
[2022-05-06] MEDS: DULoxetine HCL 30 MG CAPSULE.DR PO SCH ×2 (09:26→19:39)
[2022-05-06] MEDS: ENOXAPARIN 30 MG/0.3 ML SYRINGE SQ SCH (09:26)
[2022-05-06 09:35] LABS: Anisocytosis Slight; HCT 27.8 % (34.0-46.0); Hypochromasia Moderate; MCH 31.4 pg (25.0-35.0); MCHC 32.3 g/dL (31.0-37.0); Macrocytosis Slight; Mean Platelet Volume 9.2; Platelet Count 370 k/uL (150-450); RBC 2.86 m/uL (3.80-5.40); WBC 11.5 k/uL (3.8-10.6)
[2022-05-06 09:36] LABS: MCV 97.2 fL (80.0-100.0)
--- NOTE | 2022-05-06 11:24 | P.PN ---
Subjective Patient is seen in follow-up for end-stage renal disease. She is maintained on hemodialysis on Monday schedule. Currently tolerating dialysis well. No active complaints. Blood pressure well controlled. Vital signs are stable. General: Awake. No acute distress. HEENT: Head exam is unremarkable. LUNGS: Breath sounds decreased. HEART: Rate and Rhythm are regular. ABDOMEN: Soft, no distention. EXTREMITITES: No edema. Objective - Vital Signs Vital signs: Vital Signs Temp 97.6 F 05/06/22 08:00 Pulse 84 05/06/22 08:00 Resp 18 05/06/22 08:00 BP 116/63 05/06/22 08:00 Pulse Ox 96 05/06/22 08:00 FiO2 50 04/28/22 12:00 Intake & Output 05/05/22 05/06/22 05/06/22 18:59 06:59 18:59 Intake Total 1616 10 Output Total 4800 Balance -3184 10 Weight 49.8 kg Intake: IV 10 Invasive Line 7 10 Oral 1316 Hemodialysis 300 Output: Hemodialysis 2800 Other 2000 Other: Voiding Method Toilet Toilet # Voids 2 0 - Labs CBC & Chem 7: 05/06/22 08:29 05/06/22 08:29 Labs: Abnormal Lab Results - Last 24 Hours (Table) 05/05/22 05/05/22 05/06/22 Range/Units 16:16 20:02 01:57 WBC (3.8-10.6) k/uL RBC (3.80-5.40) m/uL Hgb (11.4-16.0) gm/dL Hct (34.0-46.0) % RDW (11.5-15.5) % Sodium (137-145) mmol/L Carbon Dioxide (22-30) mmol/L BUN (7-17) mg/dL Creatinine (0.52-1.04) mg/dL Glucose (74-99) mg/dL POC Glucose (mg/dL) 157 H 158 H 264 H (70-110) mg/dL 05/06/22 05/06/22 05/06/22 Range/Units 06:15 08:29 08:29 WBC 11.5 H (3.8-10.6) k/uL RBC 2.86 L (3.80-5.40) m/uL Hgb 9.0 L (11.4-16.0) gm/dL Hct 27.8 L (34.0-46.0) % RDW 17.0 H (11.5-15.5) % Sodium 133 L (137-145) mmol/L Carbon Dioxide 19 L (22-30) mmol/L BUN 80 H (7-17) mg/dL Creatinine 4.27 H (0.52-1.04) mg/dL Glucose 323 H (74-99) mg/dL POC Glucose (mg/dL) 494 H (70-110) mg/dL Assessment and Plan Plan: Assessment: 1. End-stage renal disease maintained on hemodialysis on Monday schedule. 2. Volume overload. Improved with ultrafiltration. 3. COVID-19 infection. 4. Hypertension with chronic kidney disease. Blood pressure labile. Partially volume sensitive and exacerbated by steroids. Currently controlled. 5. Status post cardiac arrest secondary to hyperkalemia and opioid use. 6. Hyperkalemia secondary to chronic kidney disease and hyperglycemia. 7. Anemia of chronic kidney disease maintained on Aranesp. 8. Hypertonic hyponatremia secondary to hyperglycemia. 9. Diabetes mellitus. Blood sugars labile. 10. Metabolic acidosis secondary to chronic kidney disease and severe hyp erglycemia. Improved. Expect further improvement postdialysis. 11. Chronic kidney disease mineral bone disease. Phosphorus 3.8 dated 05/03/2022. On PhosLo. Plan: Currently seen while undergoing hemodialysis. Another treatment tomorrow for ultrafiltration. Avoid medications that can raise potassium including ACEi/ARB. Avoid hydralazine and minoxidil due to history of pericardial effusion. Blood sugar control.
[2022-05-06 12:05] LABS: Glucose,Whole Blood 106 mg/dL (70-110)
[2022-05-06] MEDS: ALBUTEROL HFA INHALER INHALATION PRN ×2 (12:06→20:38)
[2022-05-06] MEDS: NAPROXEN 250 MG TAB PO SCH ×2 (12:23→19:39)
[2022-05-06] MEDS: cloNIDine HCL 0.1 MG TAB PO SCH ×3 (14:50→23:07)
[2022-05-06] MEDS: hydrALAZINE HCL 50 MG TAB PO SCH ×3 (14:51→23:07)
--- NOTE | 2022-05-06 14:51 | P.PN ---
Subjective Progress Note Date: 05/06/22 Principal diagnosis: Coronavirus infection. Reevaluated today on 04/29/22, patient remains in the ICU, remains on 3 L nasal cannula with O2 sat she is 100%, she is receiving hemodialysis this morning, she had 4 L of fluid removed on 04/28. Remains empirically on Zosyn for presumptive aspiration pneumonia she is now on insulin at 5.42 units per hour to control her blood sugars. Otherwise the patient is doing well, relatively asymptomatic. Hemoglobin is 7.6 WBC count is 8.4, basic metabolic profile is normal bicarb is 24 lites are normal Reevaluated today on 05/27/22, patient is doing well today, she is on 3 L nasal cannula, intermittently on BiPAP 05/02/50%, patient is sitting in bed, eating her breakfast, she had uneventful hemodialysis yesterday, and 2 L of fluids were removed. Her sugar is all over the place, it is fluctuating up and down, and that is to be addressed by the admitting physician. She is on Zosyn empirically for aspiration pneumonia, chest x-ray will be done in a.m. for follow-up on her aspiration pneumonia. Patient was also presented with COVID-19 infection, underlying COVID-19 pneumonia is not entirely ruled out. WBC count is 6.8 hemoglobin 8.4. Normal bicarb is 22 BUN is 50 creatinine is 2.80 blood sugar this morning is 204 Reevaluated today on 05/01/22, patient remains in the ICU, she is doing much better today, breathing a lot easier, she did undergo dialysis yesterday, and she had almost 2 L removed yesterday. Today the patient is doing great, her chest x-ray is showing dramatic improvement, patient is only on 2 L nasal douglas karissa, saturating well, and she does not seem to be in any distress. She remains on IV insulin at 2 units per hour, I'm recommending that we start long-acting insulin/Levemir insulin and sliding scale coverage, and I'll arrange for the patient to be transferred out of the ICU to a monitor bed on selective. WBC count today is 7.4 hemoglobin is 8.2. Basic metabolic profile is normal BUN is 54 creatinine 2.81, blood sugar is ranging between 274 and 400. Patient had negative C. diff. Progress note dated 05/02/2022. The patient appears to be doing relatively well. The patient took her off oxyg en on. She's on room air. No IV fluids. She's feeling well, without complaints. No new blood work today. Microbiologic studies are negative. Chest x-ray shows improved aeration. Progress note dated 05/03/2022. 31-year-old female again seen in room 365. The patient's on room air. She's not receiving any IV fluids. She has no new complaints. Current labs include a white count 7.5, hemoglobin 8.6, hematocrit 28.3, and normal platelet count. Sodium 127, potassium 4.2, chlorides 93, CO2 15, anion gap 19, BUN 73, and creatinine 3.75. Glucose is 942. Progress note dated 05/04/2022. 31-year-old female again seen in room 365. The patient's currently not receiving any IV fluids. She is on room air. She's actually undergoing hemodialysis today. She has no new complaints today. White count 11.1, hemoglobin 9.1, hematocrit 26.4, and platelet count 411,000. Sodium 133, potassium 4.5, chlorides 97, CO2 18, anion gap 18, BUN 112, and creatinine 5.07. Progress note dated 05/05/2022. 31-year-old female seen in room 365. The patient is undergoing hemodialysis today. The plan is to remove 2 L today. She had hemodialysis on May 04, and 4 L was removed. She's on room air. No IV fluids. She has no complaints today. No new labs today other than a glucose of 73. Progress note dated 05/06/2022. 31-year-old female, seen in room 365. The patient is having hemodialysis again today. 2 days ago, 4 L was removed. Yesterday, 2 L was removed. Today, the plan is to remove 3.5 L. Clinically, she's doing well. The patient is not on any supplemental oxygen or IV fluids. She has no complaints today. Looks comfortable. Labs include a white count 11.5, hemoglobin 9, hematocrit 28, and platelet count 370,000. Sodium 133, potassium 5.1, chlorides 102, CO2 19, BUN 80, creatinine 4.27. Calcium was 8.7. Objective - Vital Signs Vital signs: Vital Signs Temp 97.0 F L 05/06/22 14:06 Pulse 74 05/06/22 14:06 Resp 16 05/06/22 14:06 BP 111/68 05/06/22 14:06 Pulse Ox 95 05/06/22 12:00 FiO2 50 04/28/22 12:00 Intake & Output 05/05/22 05/06/22 05/06/22 18:59 06:59 18:59 Intake Total 1616 10 Output Total 4800 Balance -3184 10 Weight 49.8 kg Intake: IV 10 Invasive Line 7 10 Oral 1316 Hemodialysis 300 Output: Hemodialysis 2800 Other 1999 Other: Voiding Method Toilet Toilet Toilet # Voids 2 0 2 - Exam No acute distress, oriented 3. Room air saturation is 95 %. HEENT examination is grossly unremarkable. Neck supple. Full range of motion. No adenopathy thyromegaly or neck vein distention. Cardiovascular examination reveals regular rhythm rate. S1-S2 normal. No S3 or S4. No discernible murmur noted. Heart rate 74 bpm. Lungs reveal clear breath sounds. Breath sounds are equal bilaterally. No adventitious lung sounds including wheezes rhonchi or crackles. Abdomen soft bowel sounds are heard. No masses or tenderness. Extremities are intact. No cyanosis clubbing or edema. Skin is without rash or lesion. Neurologic examination is brief but nonfocal. - Labs CBC & Chem 7: 05/06/22 08:29 05/06/22 08:29 Labs: Abnormal Lab Results - Last 24 Hours (Table) 05/05/22 05/05/22 05/06/22 Range/Units 16:16 20:02 01:57 WBC (3.8-10.6) k/uL RBC (3.80-5.40) m/uL Hgb (11.4-16.0) gm/dL Hct (34.0-46.0) % RDW (11.5-15.5) % Sodium (137-145) mmol/L Carbon Dioxide (22-30) mmol/L BUN (7-17) mg/dL Creatinine (0.52-1.04) mg/dL Glucose (74-99) mg/dL POC Glucose (mg/dL) 157 H 158 H 264 H (70-110) mg/dL 05/06/22 05/06/22 05/06/22 Range/Units 06:15 08:29 08:29 WBC 11.5 H (3.8-10.6) k/uL RBC 2.86 L (3.80-5.40) m/uL Hgb 9.0 L (11.4-16.0) gm/dL Hct 27.8 L (34.0-46.0) % RDW 17.0 H (11.5-15.5) % Sodium 133 L (137-145) mmol/L Carbon Dioxide 19 L (22-30) mmol/L BUN 80 H (7-17) mg/dL Creatinine 4.27 H (0.52-1.04) mg/dL Glucose 323 H (74-99) mg/dL POC Glucose (mg/dL) 494 H (70-110) mg/dL Assessment and Plan Assessment: Acute hypoxemic hypercapnic respiratory failure, secondary to cardiac arrest, related to hyperkalemia, status post extubation on 04/27/2022. End-stage renal disease, currently undergoing hemodialysis. Acute coronavirus infection, without coronavirus associated pneumonia. Possible aspiration pneumonia. Fluid overload secondary to end-stage renal disease. History of CVA. Type 2 diabetes. Previous history of cardiac arrest. Diabetic retinopathy. History of depression. Plan: Plan dated 04/30/2022. The patient's currently not on oxygen treatment. The patient's room air saturations are 97%. Labs, x-rays, and medications are reviewed. The patient is not having any respiratory issues at this time. The patient continues on Augmentin. Additional recommendations and suggestions are forthcoming. Overall prognosis remains guarded. We will continue to follow and make recommendations along the way. Plan dated 05/03/2022. The patient appears be doing relatively well. Room air saturation 94%. 2 L saturation 99%. The patient has no new complaints today. Labs, x-rays, and medications are reviewed. We will continue to follow make recommendations along the way. Prognosis is guarded. Plan dated 05/04/2022. The patient's currently undergoing hemodialysis. She stable clinically. Blood pressure stable. Respiratory status is stable. She's on room air. Not receiving any IV fluids. Labs, x-rays, and medications are reviewed. We will c humaira to follow and make recommendations along the way. Prognosis is certainly guarded in this patient. Plan dated 05/05/2022. The patient appears be doing reasonably well. She's on room air. No IV fluids. She is having almost daily hemodialysis. The plan is to remove 2 L today. 4 L was removed yesterday, May 04. Labs, x-rays, and medications are all reviewed. Prognosis is guarded. We will continue to follow and make recommendations along the way. Plan dated 05/06/2022. The patient is undergoing hemodialysis again today. The plan is to remove 3.5 L. 2 days ago, 4 L was removed. Yesterday, 2 L was removed. The patient is currently not on any supplemental oxygen. She's not receiving any IV fluids. Labs, x-rays, medications are reviewed. Prognosis is guarded. We will continue to follow and make recommendations along the way. Time with Patient: Less than 30
[2022-05-06 16:44] LABS: Glucose,Whole Blood 525 mg/dL (70-110)
[2022-05-06 16:44] LABS: Glucose,Whole Blood 510 mg/dL (70-110)
[2022-05-06 20:04] LABS: Glucose,Whole Blood 358 mg/dL (70-110)
[2022-05-06 22:04] LABS: Glucose,Whole Blood 26 mg/dL (70-110)
[2022-05-06] MEDS: DEXTROSE 50% SYRINGE 50 ML IVP PRN (22:11)
--- NOTE | 2022-05-06 22:18 | PN ---
PROGRESS NOTE DATE OF SERVICE: 05/06/2022 CHIEF COMPLAINT: Renal failure, hypertension, diabetes. HISTORY OF PRESENT ILLNESS: This lady's blood pressure and blood sugars are much improved. She states that she "felt much better on the steroids", but it was explained that she could not stay on these. PHYSICAL EXAMINATION: CHEST: Clear. CARDIAC: Normal. ABDOMEN: Soft, nontender. IMPRESSION: 1. Chronic renal failure. 2. Uncontrolled type 1 insulin-dependent diabetes mellitus. 3. Hypertension. PLAN: Continue on the current regimen and possibly she can be discharged in the next 2 to 3 days if she remains stable. She, of course, does not want to go home. MMODL / IJN: [id number] /
[2022-05-06 22:25] LABS: Glucose,Whole Blood 107 mg/dL (70-110)
[2022-05-06] MEDS: traZODone HCL 50 MG TAB PO PRN (23:06)
[2022-05-07 02:05] LABS: Glucose,Whole Blood 220 mg/dL (70-110)
[2022-05-07] MEDS: diphenhydrAMINE 50 MG/ML 1 ML VIAL IVP PRN ×4 (02:22→20:42)
[2022-05-07] MEDS: HYDROmorphone 0.5 MG/0.5 ML SYRINGE IVP PRN ×4 (02:22→20:40)
[2022-05-07 06:09] LABS: Glucose,Whole Blood 518 mg/dL (70-110)
[2022-05-07] MEDS: PANTOPRAZOLE 40 MG TABLET PO SCH (06:54)
[2022-05-07] MEDS: CALCIUM ACETATE 667 MG TAB PO SCH ×3 (06:55→18:03)
[2022-05-07] MEDS: carvediloL 12.5 MG TAB PO SCH ×2 (06:55→18:04)
[2022-05-07] MEDS: INSULIN ASPART (NovoLOG) 100 UNIT/ML VIAL SQ SCH ×5 (06:55→20:42)
[2022-05-07] MEDS: ACETAMINOPHEN TAB 325 MG TAB PO PRN (06:57)
[2022-05-07] MEDS: DARBEPOETIN ALFA 60 MCG/0.3 ML SYRINGE SQ SCH (08:33)
[2022-05-07] MEDS: ASPIRIN 81 MG PO SCH (08:33)
[2022-05-07] MEDS: ENOXAPARIN 30 MG/0.3 ML SYRINGE SQ SCH (08:33)
[2022-05-07] MEDS: TORSEMIDE 20 MG TAB PO SCH (08:34)
[2022-05-07] MEDS: NAPROXEN 250 MG TAB PO SCH ×2 (08:34→20:45)
[2022-05-07] MEDS: DULoxetine HCL 30 MG CAPSULE.DR PO SCH ×2 (08:34→20:41)
[2022-05-07] MEDS: buPROPion SR 150 MG TABLET.ER PO SCH ×2 (08:35→20:41)
[2022-05-07] MEDS: AMOXIC-POT CLAV 875-125MG 1 EACH TAB PO SCH ×2 (08:35→20:41)
--- NOTE | 2022-05-07 10:42 | P.PN ---
Subjective Patient is seen in follow-up for end-stage renal disease. She is maintained on hemodialysis on Monday schedule. Currently tolerating dialysis well. No active complaints. Vital signs are stable. General: Awake. No acute distress. HEENT: Head exam is unremarkable. LUNGS: Breath sounds decreased. HEART: Rate and Rhythm are regular. ABDOMEN: Soft, no distention. EXTREMITITES: No edema. Objective - Vital Signs Vital signs: Vital Signs Temp 98.2 F 05/07/22 08:00 Pulse 101 H 05/07/22 08:00 Resp 18 05/07/22 08:00 BP 189/85 05/07/22 08:00 Pulse Ox 97 05/07/22 08:27 FiO2 50 04/28/22 12:00 Intake & Output 05/06/22 05/07/22 05/07/22 18:59 06:59 18:59 Intake Total 10 240 Balance 10 240 Intake: IV 10 Invasive Line 7 10 Oral 240 Other: Voiding Method Toilet Toilet # Voids 2 1 # Bowel Movements 1 - Labs CBC & Chem 7: 05/06/22 08:29 05/06/22 08:29 Labs: Abnormal Lab Results - Last 24 Hours (Table) 05/06/22 05/06/22 05/06/22 Range/Units 16:41 16:42 20:03 POC Glucose (mg/dL) 525 H 510 H 358 H (70-110) mg/dL 05/06/22 05/07/22 05/07/22 Range/Units 22:02 02:03 06:07 POC Glucose (mg/dL) 26 L 220 H 518 H (70-110) mg/dL Assessment and Plan Plan: Assessment: 1. End-stage renal disease maintained on hemodialysis on Monday schedule. 2. Volume overload. Improved with ultrafiltration. 3. COVID-19 infection. 4. Hypertension with chronic kidney disease. Blood pressure labile. Partially volume sensitive and exacerbated by steroids. 5. Status post cardiac arrest secondary to hyperkalemia and opioid use. 6. Hyperkalemia secondary to chronic kidney disease and hyperglycemia. 7. Anemia of chronic kidney disease maintained on Aranesp. 8. Hypertonic hyponatremia secondary to hyperglycemia. 9. Diabetes mellitus. Blood sugars labile. 10. Metabolic acidosis secondary to chronic kidney disease and severe hyperglycemia. Improved. Expect further improvement postdialysis. 11. Chronic kidney disease mineral bone disease. Phosphorus 3.8 dated 05/03/2022. On PhosLo. Plan: Currently seen while undergoing hemodialysis. Next treatment Monday. Avoid medications that can raise potassium including ACEi/ARB. Avoid hydralazine and minoxidil due to history of pericardial effusion. Blood sugar control.
[2022-05-07] MEDS: ALBUTEROL HFA INHALER INHALATION PRN ×2 (11:45→20:48)
[2022-05-07 11:50] LABS: Glucose,Whole Blood 146 mg/dL (70-110)
[2022-05-07] MEDS: cloNIDine HCL 0.1 MG TAB PO SCH ×3 (13:24→20:40)
[2022-05-07] MEDS: hydrALAZINE HCL 50 MG TAB PO SCH ×3 (13:24→20:41)
[2022-05-07 16:39] LABS: Glucose,Whole Blood 557 mg/dL (70-110)
[2022-05-07] MEDS: INSULIN DETEMIR (LEVEMIR) 100 UNIT/ML SYR SQ SCH (18:03)
[2022-05-07] MEDS: ONDANSETRON 4 MG/2 ML VIAL IVP PRN (18:04)
[2022-05-07 20:11] LABS: Glucose,Whole Blood 441 mg/dL (70-110)
[2022-05-07 23:14] LABS: Glucose,Whole Blood 23 mg/dL (70-110)
[2022-05-07] MEDS: DEXTROSE 50% SYRINGE 50 ML IVP PRN (23:18)
[2022-05-07] MEDS: traZODone HCL 50 MG TAB PO PRN (23:25)
[2022-05-07 23:38] LABS: Glucose,Whole Blood 173 mg/dL (70-110)
[2022-05-08 02:01] LABS: Glucose,Whole Blood 97 mg/dL (70-110)
[2022-05-08] MEDS: diphenhydrAMINE 50 MG/ML 1 ML VIAL IVP PRN ×4 (03:14→23:19)
[2022-05-08] MEDS: HYDROmorphone 0.5 MG/0.5 ML SYRINGE IVP PRN ×4 (03:14→23:19)
[2022-05-08 06:04] LABS: Glucose,Whole Blood 169 mg/dL (70-110)
[2022-05-08] MEDS: ACETAMINOPHEN TAB 325 MG TAB PO PRN (06:53)
[2022-05-08] MEDS: INSULIN ASPART (NovoLOG) 100 UNIT/ML VIAL SQ SCH ×7 (06:53→20:58)
[2022-05-08] MEDS: ONDANSETRON 4 MG/2 ML VIAL IVP PRN (06:53)
[2022-05-08] MEDS: CALCIUM ACETATE 667 MG TAB PO SCH ×3 (06:54→17:11)
[2022-05-08] MEDS: PANTOPRAZOLE 40 MG TABLET PO SCH (06:54)
[2022-05-08] MEDS: carvediloL 12.5 MG TAB PO SCH ×2 (06:54→17:11)
[2022-05-08] MEDS: INSULIN DETEMIR (LEVEMIR) 100 UNIT/ML SYR SQ SCH (06:54)
[2022-05-08] MEDS: ENOXAPARIN 30 MG/0.3 ML SYRINGE SQ SCH (10:11)
[2022-05-08] MEDS: AMOXIC-POT CLAV 875-125MG 1 EACH TAB PO SCH (10:11)
[2022-05-08] MEDS: ASPIRIN 81 MG PO SCH (10:11)
[2022-05-08] MEDS: cloNIDine HCL 0.1 MG TAB PO SCH ×3 (10:12→21:06)
[2022-05-08] MEDS: hydrALAZINE HCL 50 MG TAB PO SCH (10:12)
[2022-05-08] MEDS: NAPROXEN 250 MG TAB PO SCH (10:13)
[2022-05-08] MEDS: DULoxetine HCL 30 MG CAPSULE.DR PO SCH ×2 (10:13→21:06)
[2022-05-08] MEDS: TORSEMIDE 20 MG TAB PO SCH (10:13)
[2022-05-08] MEDS: buPROPion SR 150 MG TABLET.ER PO SCH ×2 (10:13→21:06)
--- NOTE | 2022-05-08 10:32 | P.PN ---
Subjective Patient is seen in follow-up for end-stage renal disease. She is maintained on hemodialysis on Monday schedule. No problems with dialysis yesterday. Resting in bed. No active complaints. Vital signs are stable. General: Awake. No acute distress. HEENT: Head exam is unremarkable. LUNGS: Breath sounds decreased. HEART: Rate and Rhythm are regular. ABDOMEN: Soft, no distention. EXTREMITITES: No edema. Objective - Vital Signs Vital signs: Vital Signs Temp 98.1 F 05/08/22 08:00 Pulse 82 05/08/22 08:00 Resp 18 05/08/22 08:00 BP 177/87 05/08/22 08:00 Pulse Ox 95 05/08/22 08:00 FiO2 50 04/28/22 12:00 Intake & Output 05/07/22 05/08/22 05/08/22 18:59 06:59 18:59 Intake Total 720 120 Balance 720 120 Intake: Oral 720 120 Other: Voiding Method Toilet Toilet # Voids 0 1 0 - Labs CBC & Chem 7: 05/06/22 08:29 05/06/22 08:29 Labs: Abnormal Lab Results - Last 24 Hours (Table) 05/07/22 05/07/22 05/07/22 Range/Units 11:49 16:37 20:09 POC Glucose (mg/dL) 146 H 557 H 441 H (70-110) mg/dL 05/07/22 05/07/22 05/08/22 Range/Units 23:13 23:37 06:03 POC Glucose (mg/dL) 23 L 173 H 169 H (70-110) mg/dL Assessment and Plan Plan: Assessment: 1. End-stage renal disease maintained on hemodialysis on Monday schedule. 2. Volume overload. Improved with ultrafiltration. 3. COVID-19 infection. 4. Hypertension with chronic kidney disease. Blood pressure labile. Partially volume sensitive. 5. Status post cardiac arrest secondary to hyperkalemia and opioid use. 6. Hyperkalemia secondary to chronic kidney disease and hyperglycemia. 7. Anemia of chronic kidney disease maintained on Aranesp. 8. Hypertonic hyponatremia secondary to hyperglycemia. 9. Diabetes mellitus. Blood sugars labile. 10. Metabolic acidosis secondary to chronic kidney disease and severe hyperglycemia. Improved. Expect further improvement postdialysis. 11. Chronic kidney disease mineral bone disease. Phosphorus 3.8 dated 05/03/2022. On PhosLo. Plan: Hemodialysis tomorrow. Avoid medications that can raise potassium including ACEi/ARB. Avoid hydralazine and minoxidil due to history of pericardial effusion. Blood sugar control. Stop NSAIDs.
[2022-05-08] MEDS: ALBUTEROL HFA INHALER INHALATION PRN ×2 (11:04→19:05)
[2022-05-08 12:06] LABS: Glucose,Whole Blood 46 mg/dL (70-110)
[2022-05-08 12:11] LABS: Glucose,Whole Blood 59 mg/dL (70-110)
[2022-05-08] MEDS: LORazepam 1 MG TAB PO PRN (12:31)
[2022-05-08 12:32] LABS: Glucose,Whole Blood 54 mg/dL (70-110)
[2022-05-08 12:48] LABS: Glucose,Whole Blood 54 mg/dL (70-110)
[2022-05-08 13:53] LABS: Glucose,Whole Blood 82 mg/dL (70-110)
[2022-05-08 16:54] LABS: Glucose,Whole Blood 133 mg/dL (70-110)
--- NOTE | 2022-05-08 20:37 | PN ---
PROGRESS NOTE DATE OF SERVICE: 05/08/2022 CHIEF COMPLAINT: Renal failure, uncontrolled hypertension, diabetes. HISTORY OF PRESENT ILLNESS: This lady is doing fairly well. She is sitting up, eating and for the first time since I have been taking care of her, she asked if, "I can go home tomorrow"! Blood pressures and blood sugars are greatly improved. PHYSICAL EXAMINATION: CHEST: Clear. CARDIAC: Normal. ABDOMEN: Soft, nontender. IMPRESSION: 1. Stage 5 chronic kidney disease. 2. Uncontrolled hypertension. 3. Uncontrolled type 1 diabetes mellitus. PLAN: Home tomorrow after dialysis if everything else remains stable. MMODL / IJN: [id number] /
[2022-05-08 20:45] LABS: Glucose,Whole Blood 71 mg/dL (70-110)
--- NOTE | 2022-05-08 20:58 | PN ---
PROGRESS NOTE DATE OF SERVICE: 05/07/2022 CHIEF COMPLAINT: Uncontrolled hypertension and diabetes. HISTORY OF PRESENT ILLNESS: This lady's numbers are still significantly erratic. Blood sugar was over 700 again. PHYSICAL EXAMINATION: GENERAL: She is awake and alert. CHEST: Clear. CARDIAC: Normal. ABDOMEN: Soft. IMPRESSION: 1. Stage 5 chronic kidney disease. 2. Uncontrolled hypertension. 3. Uncontrolled diabetes. PLAN: No change in program. MMODL / IJN: [id number] /
[2022-05-09] MEDS: ACETAMINOPHEN TAB 325 MG TAB PO PRN ×3 (00:46→17:08)
[2022-05-09 02:02] LABS: Glucose,Whole Blood 488 mg/dL (70-110)
[2022-05-09] MEDS: ONDANSETRON 4 MG/2 ML VIAL IVP PRN ×2 (02:33→23:24)
[2022-05-09 04:11] LABS: Glucose,Whole Blood 560 mg/dL (70-110)
[2022-05-09] MEDS ORDERED: INSULIN ASPART (NovoLOG) 100 UNIT/ML VIAL SQ ONE (04:17)
[2022-05-09] MEDS: CALCIUM ACETATE 667 MG TAB PO SCH ×3 (06:12→17:08)
[2022-05-09] MEDS: diphenhydrAMINE 50 MG/ML 1 ML VIAL IVP PRN ×3 (06:12→21:50)
[2022-05-09] MEDS: HYDROmorphone 0.5 MG/0.5 ML SYRINGE IVP PRN ×4 (06:13→23:18)
[2022-05-09] MEDS: PANTOPRAZOLE 40 MG TABLET PO SCH (06:13)
[2022-05-09 06:28] LABS: Glucose,Whole Blood 320 mg/dL (70-110)
[2022-05-09] MEDS: carvediloL 12.5 MG TAB PO SCH ×2 (06:53→17:08)
[2022-05-09] MEDS: INSULIN ASPART (NovoLOG) 100 UNIT/ML VIAL SQ SCH ×8 (06:54→20:47)
[2022-05-09] MEDS: INSULIN DETEMIR (LEVEMIR) 100 UNIT/ML SYR SQ SCH (06:54)
[2022-05-09 08:06] LABS: Anisocytosis Slight; Basophils % (A) 0 %; Eosinophils # (A) 0.2 k/uL (0-0.7); Eosinophils % (A) 1 %; HGB 8.3 gm/dL (11.4-16.0); Hypochromasia Slight; Lymphocytes # (A) 0.6 k/uL (1.0-4.8); Lymphocytes % (A) 4 %; MCH 30.8 pg (25.0-35.0); MCHC 31.8 g/dL (31.0-37.0); MCV 97.1 fL (80.0-100.0); Macrocytosis Slight; Mean Platelet Volume 9.4; Monocytes # (A) 0.7 k/uL (0-1.0); Monocytes % (A) 4 %; Neutrophils # (A) 14.7 k/uL (1.3-7.7); Neutrophils % (A) 89 %; Platelet Count 268 k/uL (150-450); RBC 2.68 m/uL (3.80-5.40); RDW 17.2 % (11.5-15.5); WBC 16.5 k/uL (3.8-10.6)
[2022-05-09 08:13] LABS: Albumin 3.6 g/dL (3.5-5.0); Calcium 8.9 mg/dL (8.4-10.2); Total Bilirubin 1.7 mg/dL (0.2-1.3); Total Protein 6.1 g/dL (6.3-8.2)
[2022-05-09 08:17] LABS: Potassium 6.7 mmol/L (3.5-5.1)
[2022-05-09] MEDS ORDERED: INSULIN REGULAR 100 UNIT/ML VIAL (IM/SQ) SQ STA (08:31)
[2022-05-09] MEDS ORDERED: SODIUM ZIRCONIUM CYCLOSILICATE 10 GM PACKET PO STA (08:34)
[2022-05-09 08:38] LABS: Glucose,Whole Blood 56 mg/dL (70-110)
[2022-05-09] MEDS: DEXTROSE 50% SYRINGE 50 ML IVP PRN ×3 (08:52→12:55)
[2022-05-09] MEDS: ALBUTEROL HFA INHALER INHALATION PRN (08:58)
[2022-05-09] MEDS ORDERED: CALCIUM GLUCONATE IN NACL 1 GM in SALINE 1 100ML.BAG IVPB ONE (09:00)
[2022-05-09] MEDS: LORazepam 1 MG TAB PO PRN ×2 (09:19→17:08)
[2022-05-09 10:14] LABS: Glucose,Whole Blood 57 mg/dL (70-110)
[2022-05-09 10:58] LABS: Glucose,Whole Blood 40 mg/dL (70-110)
[2022-05-09 11:14] LABS: Glucose,Whole Blood 101 mg/dL (70-110)
[2022-05-09 11:33] LABS: Glucose,Whole Blood 73 mg/dL (70-110)
--- NOTE | 2022-05-09 11:48 | P.PN ---
Subjective Patient is seen in follow-up for end-stage renal disease. She is maintained on hemodialysis on Monday schedule. Has received multiple extra treatments for ultrafiltration this admission. Tolerating dialysis well currently. Potassium was high at 6.7 this morning. Vital signs are stable. General: Awake. No acute distress. HEENT: Head exam is unremarkable. LUNGS: Breath sounds decreased. HEART: Rate and Rhythm are regular. ABDOMEN: Soft, no distention. EXTREMITITES: No edema. Objective - Vital Signs Vital signs: Vital Signs Temp 98.1 F 05/09/22 08:00 Pulse 70 05/09/22 08:00 Resp 18 05/09/22 08:00 BP 119/73 05/09/22 08:00 Pulse Ox 96 05/09/22 09:00 FiO2 50 04/28/22 12:00 Intake & Output 05/08/22 05/09/22 05/09/22 18:59 06:59 18:59 Intake Total 440 240 Output Total 0 Balance 440 240 Intake: Oral 440 240 Output: Stool 0 Other: Voiding Method Toilet Toilet Toilet # Voids 0 1 # Bowel Movements 0 - Labs CBC & Chem 7: 05/09/22 07:32 05/09/22 07:32 Labs: Abnormal Lab Results - Last 24 Hours (Table) 05/08/22 05/08/22 05/08/22 Range/Units 11:49 12:09 12:29 WBC (3.8-10.6) k/uL RBC (3.80-5.40) m/uL Hgb (11.4-16.0) gm/dL Hct (34.0-46.0) % RDW (11.5-15.5) % Neutrophils # (1.3-7.7) k/uL Lymphocytes # (1.0-4.8) k/uL Sodium (137-145) mmol/L Potassium (3.5-5.1) mmol/L Chloride (98-107) mmol/L Carbon Dioxide (22-30) mmol/L BUN (7-17) mg/dL Creatinine (0.52-1.04) mg/dL Glucose (74-99) mg/dL POC Glucose (mg/dL) 46 L 59 L 54 L (70-110) mg/dL Total Bilirubin (0.2-1.3) mg/dL AST (14-36) U/L ALT (4-34) U/L Alkaline Phosphatase (38-126) U/L Total Protein (6.3-8.2) g/dL 05/08/22 05/08/22 05/09/22 Range/Units 12:45 16:50 02:00 WBC (3.8-10.6) k/uL RBC (3.80-5.40) m/uL Hgb (11.4-16.0) gm/dL Hct (34.0-46.0) % RDW (11.5-15.5) % Neutrophils # (1.3-7.7) k/uL Lymphocytes # (1.0-4.8) k/uL Sodium (137-145) mmol/L Potassium (3.5-5.1) mmol/L Chloride (98-107) mmol/L Carbon Dioxide (22-30) mmol/L BUN (7-17) mg/dL Creatinine (0.52-1.04) mg/dL Glucose (74-99) mg/dL POC Glucose (mg/dL) 54 L 133 H 488 H (70-110) mg/dL Total Bilirubin (0.2-1.3) mg/dL AST (14-36) U/L ALT (4-34) U/L Alkaline Phosphatase (38-126) U/L Total Protein (6.3-8.2) g/dL 05/09/22 05/09/22 05/09/22 Range/Units 04:09 06:26 07:32 WBC (3.8-10.6) k/uL RBC (3.80-5.40) m/uL Hgb (11.4-16.0) gm/dL Hct (34.0-46.0) % RDW (11.5-15.5) % Neutrophils # (1.3-7.7) k/uL Lymphocytes # (1.0-4.8) k/uL Sodium 131 L (137-145) mmol/L Potassium 6.7 H* (3.5-5.1) mmol/L Chloride 97 L (98-107) mmol/L Carbon Dioxide 20 L (22-30) mmol/L BUN 91 H (7-17) mg/dL Creatinine 5.45 H (0.52-1.04) mg/dL Glucose 158 H (74-99) mg/dL POC Glucose (mg/dL) 560 H 320 H (70-110) mg/dL Total Bilirubin 1.7 H (0.2-1.3) mg/dL AST 224 H (14-36) U/L ALT 180 H (4-34) U/L Alkaline Phosphatase 285 H (38-126) U/L Total Protein 6.1 L (6.3-8.2) g/dL 05/09/22 05/09/22 05/09/22 Range/Units 07:32 08:36 10:13 WBC 16.5 H (3.8-10.6) k/uL RBC 2.68 L (3.80-5.40) m/uL Hgb 8.3 L (11.4-16.0) gm/dL Hct 26.0 L (34.0-46.0) % RDW 17.2 H (11.5-15.5) % Neutrophils # 14.7 H (1.3-7.7) k/uL Lymphocytes # 0.6 L (1.0-4.8) k/uL Sodium (137-145) mmol/L Potassium (3.5-5.1) mmol/L Chloride (98-107) mmol/L Carbon Dioxide (22-30) mmol/L BUN (7-17) mg/dL Creatinine (0.52-1.04) mg/dL Glucose (74-99) mg/dL POC Glucose (mg/dL) 56 L 57 L (70-110) mg/dL Total Bilirubin (0.2-1.3) mg/dL AST (14-36) U/L ALT (4-34) U/L Alkaline Phosphatase (38-126) U/L Total Protein (6.3-8.2) g/dL 05/09/22 Range/Units 10:53 WBC (3.8-10.6) k/uL RBC (3.80-5.40) m/uL Hgb (11.4-16.0) gm/dL Hct (34.0-46.0) % RDW (11.5-15.5) % Neutrophils # (1.3-7.7) k/uL Lymphocytes # (1.0-4.8) k/uL Sodium (137-145) mmol/L Potassium (3.5-5.1) mmol/L Chloride (98-107) mmol/L Carbon Dioxide (22-30) mmol/L BUN (7-17) mg/dL Creatinine (0.52-1.04) mg/dL Glucose (74-99) mg/dL POC Glucose (mg/dL) 40 L (70-110) mg/dL Total Bilirubin (0.2-1.3) mg/dL AST (14-36) U/L ALT (4-34) U/L Alkaline Phosphatase (38-126) U/L Total Protein (6.3-8.2) g/dL Assessment and Plan Plan: Assessment: 1. End-stage renal disease maintained on hemodialysis on Monday schedule. 2. Volume overload. Improved with ultrafiltration. 3. COVID-19 infection. 4. Hypertension with chronic kidney disease. Blood pressure labile. Partially volume sensitive. 5. Status post cardiac arrest secondary to hyperkalemia and opioid use. 6. Hyperkalemia secondary to chronic kidney disease and hyperglycemia. 7. Anemia of chronic kidney disease maintained on Aranesp. 8. Hypertonic hyponatremia secondary to hyperglycemia. 9. Diabetes mellitus. Blood sugars labile. 10. Metabolic acidosis secondary to chronic kidney disease and severe hyperglycemia. Improved. Expect further improvement postdialysis. 11. Chronic kidney disease mineral bone disease. Phosphorus 3.8 dated 05/03/2022. On PhosLo. Plan: Currently seen while undergoing hemodialysis. Avoid medications that can raise potassium including ACEi/ARB, NSAIDs. Avoid hydralazine and minoxidil due to history of pericardial effusion. Blood sugar control. Stopped NSAIDs.
--- NOTE | 2022-05-09 11:59 | CDI ---
Documentation Clarification Form Date: 05/09/2022 11:36:09 AM From: Nguyen Bertrand RN CCDS Admit Date: 04/25/2022 12:03:00 AM Patient Name: Patsy Pizano Visit Number: [id number] Discharge Date: ATTENTION: The Clinical Documentation Specialists (CDI) and [facility] Coding Staff appreciate your assistance in clarifying documentation. Please respond to the clarification below the line at the bottom and electronically sign. The CDI & [facility] Coding staff will review the response and follow-up if needed. Please note: Queries are made part of the Legal Health Record. If you have any questions, please contact the author of this message via ITS. Dr. Roque Buckner The Registered Dietitian assessment on 05/05, documented as predicted suboptimal energy intake. Based on this information and the findings below, is there an additional diagnosis that is clinically appropriate for this patient? History/Risk Factors: 31-year-old female presents to the ED with increased shortness of breath recently discharged four to five days ago. Admitted with COVID 19. Medical history: ESRD with hemodialysis M/W/F, Type 1 IDDM poorly controlled, DKA, HTN and Severe hypokalemia and neuropathy. 04/25, Nephrology Consult Clinical Indicators: RD Consult Assessment: 05/05/2022 Current BMI: 18.8; Standing scale weight 49.8kg; Height 5ft 4in Underweight. Patients weight fluctuates secondary fluid. Stable from last admission 04/10/22 Estimated protein needs 57 -109 grams a day Estimated Kcal Energy needs: 1467 Kcal Nutritional diagnosis: Predicted suboptimal energy intake Evidenced by: Fair appetite that comes and goes. Nutrition Goals: Controlled blood glucose and Meeting 75% of nutritional needs. Treatment: Carbohydrate modified diet; Monitor PO intake; Monitor supplement intake Dietary Consult: see above Supplements: Glucerna TID Is there an additional diagnosis that is clinically appropriate for this patient? [ ] Moderate Protein-Calorie Malnutrition [ ] Severe Protein-Calorie Malnutrition [ ] Other condition, please specify [ ] Unable to Determine (Template Last Revised: July 2020) MTDD
[2022-05-09] MEDS ORDERED: INSULIN ASPART (NovoLOG) 100 UNIT/ML VIAL SQ SCH ×3 (12:30)
--- NOTE | 2022-05-09 12:30 | P.PN ---
Subjective Progress Note Date: 05/09/22 On today's evaluation of 05/09/2022, the patient is being seen for a follow-up. The patient is currently undergoing hemodialysis. The patient is currently on room air oxygen. She undergoes dialysis on a regular basis. She got dialyzed in severity with a total of 2 L of fluid was removed. The patient is looking quite comfortable at this point in time. She was positive for Covid 19 without evidence of any significant pneumonia. She was in the intensive care unit earlier for hypoxic respiratory failure requiring oxygen and intermittent BiPAP use. She gradually improved after optimizing her volume status. Her blood work from today is showing a white second of 16 which is higher compared to baseline, hemoglobin is at 8.3 and a platelet count is at 268. Potassium level is up to 6.7 and the patient is undergoing hemodialysis and his sodium is at 131. LFTs are abnormal and the patient has an AST of 224 ALT of 180 alkaline phosphatase of 285. Her serum bilirubin total is at 1.7. Her BUN is at 91 with a creatinine of 5.4. Her most recent chest x-rays from 05/01/2022 and it was showing improvement in the multifocal airspace disease seen bilaterally. Most recent ultrasound the gallbladder that was done on 10/15/2021 showed enlarged liver, the gallbladder was surgically absent and common bile duct was essentially within normal limits. Another CAT scan of the abdomen that was done on 09/02/2021 showed no significant intra-abdominal abnormality. Liver was enlarged. There was a moderate degree of pericardial effusion and a tiny hiatal hernia. Small kidneys. No active bowel abnormalities. She is currently on Levemir insulin for blood sugar control 12 units in addition to NovoLog sliding scale coverage. She is on Demadex 40 mg by mouth daily. She is using Ventolin on an as-needed basis. Objective - Vital Signs Vital signs: Vital Signs Temp 98.2 F 05/09/22 12:00 Pulse 82 05/09/22 12:00 Resp 18 05/09/22 12:00 BP 175/82 05/09/22 12:00 Pulse Ox 96 05/09/22 12:00 FiO2 50 04/28/22 12:00 Intake & Output 05/08/22 05/09/22 05/09/22 18:59 06:59 18:59 Intake Total 440 240 Output Total 0 Balance 440 240 Intake: Oral 440 240 Output: Stool 0 Other: Voiding Method Toilet Toilet Toilet # Voids 0 1 # Bowel Movements 0 - Exam No acute distress, oriented 3. Room air saturation is 95 %. HEENT examination is grossly unremarkable. Neck supple. Full range of motion. No adenopathy thyromegaly or neck vein distention. Cardiovascular examination reveals regular rhythm rate. S1-S2 normal. No S3 or S4. No discernible murmur noted. . Lungs reveal clear breath sounds. Breath sounds are equal bilaterally. No adventitious lung sounds including wheezes rhonchi or crackles. Abdomen soft bowel sounds are heard. No masses or tenderness. Extremities are intact. No cyanosis clubbing or edema. Skin is without rash or lesion. Neurologic examination is brief but nonfocal. - Labs CBC & Chem 7: 05/09/22 07:32 05/09/22 07:32 Labs: Abnormal Lab Results - Last 24 Hours (Table) 05/08/22 05/08/22 05/08/22 Range/Units 12:29 12:45 16:50 WBC (3.8-10.6) k/uL RBC (3.80-5.40) m/uL Hgb (11.4-16.0) gm/dL Hct (34.0-46.0) % RDW (11.5-15.5) % Neutrophils # (1.3-7.7) k/uL Lymphocytes # (1.0-4.8) k/uL Sodium (137-145) mmol/L Potassium (3.5-5.1) mmol/L Chloride (98-107) mmol/L Carbon Dioxide (22-30) mmol/L BUN (7-17) mg/dL Creatinine (0.52-1.04) mg/dL Glucose (74-99) mg/dL POC Glucose (mg/dL) 54 L 54 L 133 H (70-110) mg/dL Total Bilirubin (0.2-1.3) mg/dL AST (14-36) U/L ALT (4-34) U/L Alkaline Phosphatase (38-126) U/L Total Protein (6.3-8.2) g/dL 05/09/22 05/09/22 05/09/22 Range/Units 02:00 04:09 06:26 WBC (3.8-10.6) k/uL RBC (3.80-5.40) m/uL Hgb (11.4-16.0) gm/dL Hct (34.0-46.0) % RDW (11.5-15.5) % Neutrophils # (1.3-7.7) k/uL Lymphocytes # (1.0-4.8) k/uL Sodium (137-145) mmol/L Potassium (3.5-5.1) mmol/L Chloride (98-107) mmol/L Carbon Dioxide (22-30) mmol/L BUN (7-17) mg/dL Creatinine (0.52-1.04) mg/dL Glucose (74-99) mg/dL POC Glucose (mg/dL) 488 H 560 H 320 H (70-110) mg/dL Total Bilirubin (0.2-1.3) mg/dL AST (14-36) U/L ALT (4-34) U/L Alkaline Phosphatase (38-126) U/L Total Protein (6.3-8.2) g/dL 05/09/22 05/09/22 05/09/22 Range/Units 07:32 07:32 08:36 WBC 16.5 H (3.8-10.6) k/uL RBC 2.68 L (3.80-5.40) m/uL Hgb 8.3 L (11.4-16.0) gm/dL Hct 26.0 L (34.0-46.0) % RDW 17.2 H (11.5-15.5) % Neutrophils # 14.7 H (1.3-7.7) k/uL Lymphocytes # 0.6 L (1.0-4.8) k/uL Sodium 131 L (137-145) mmol/L Potassium 6.7 H* (3.5-5.1) mmol/L Chloride 97 L (98-107) mmol/L Carbon Dioxide 20 L (22-30) mmol/L BUN 91 H (7-17) mg/dL Creatinine 5.45 H (0.52-1.04) mg/dL Glucose 158 H (74-99) mg/dL POC Glucose (mg/dL) 56 L (70-110) mg/dL Total Bilirubin 1.7 H (0.2-1.3) mg/dL AST 224 H (14-36) U/L ALT 180 H (4-34) U/L Alkaline Phosphatase 285 H (38-126) U/L Total Protein 6.1 L (6.3-8.2) g/dL 05/09/22 05/09/22 Range/Units 10:13 10:53 WBC (3.8-10.6) k/uL RBC (3.80-5.40) m/uL Hgb (11.4-16.0) gm/dL Hct (34.0-46.0) % RDW (11.5-15.5) % Neutrophils # (1.3-7.7) k/uL Lymphocytes # (1.0-4.8) k/uL Sodium (137-145) mmol/L Potassium (3.5-5.1) mmol/L Chloride (98-107) mmol/L Carbon Dioxide (22-30) mmol/L BUN (7-17) mg/dL Creatinine (0.52-1.04) mg/dL Glucose (74-99) mg/dL POC Glucose (mg/dL) 57 L 40 L (70-110) mg/dL Total Bilirubin (0.2-1.3) mg/dL AST (14-36) U/L ALT (4-34) U/L Alkaline Phosphatase (38-126) U/L Total Protein (6.3-8.2) g/dL Assessment and Plan Plan: Acute hypoxemic hypercapnic respiratory failure, secondary to cardiac arrest, related to hyperkalemia, status post extubation on 04/27/2022. The patient is currently on room air oxygen. Most recent chest x-ray from 05/01/2022 was showing improvement in volume status. Despite being infected with Covid 19, the patient is currently out of isolation and there is no signs of any issues with oxygenation secondary to pneumonia. The hypoxic respiratory failure was most likely secondary to volume overload. End-stage renal disease, currently undergoing hemodialysis. Acute coronavirus infection, without coronavirus associated pneumonia. Possible aspiration pneumonia. Fluid overload secondary to end-stage renal disease. History of CVA. Type 2 diabetes. Previous history of cardiac arrest. Diabetic retinopathy. History of depression. Abnormal LFTs Plan Obtain a follow-up chest x-ray Continue hemodialysis Patient is currently on room air oxygen We'll continue to follow if there is any ongoing significant abnormalities on the chest x-ray or any respiratory issues.
--- NOTE | 2022-05-09 12:49 | XR ---
EXAMINATION TYPE: XR chest 1V DATE OF EXAM: 05/09/2022 COMPARISON: 05/01/2022 HISTORY: Shortness of breath TECHNIQUE: Single frontal view of the chest is obtained. FINDINGS: There is no pneumothorax or pleural effusion. Patchy infiltrate left lung stable. Suspect chronic rib fractures involving the anterior margin of the rib cage bilaterally. The osseous structur es are intact. Diffuse osteopenia. Sclerotic density overlying the humeral neck likely related to bon e. Limited inspiration with coarsened interstitium. Densities along the anterior margin left rib cage could be related to prior trauma. Table prior exam. IMPRESSION: 1. Patchy infiltrate left lung stable. 2. Anterior bilateral rib fractures correlate for history of trauma.
[2022-05-09 12:50] LABS: Glucose,Whole Blood 57 mg/dL (70-110)
[2022-05-09 13:36] LABS: Glucose,Whole Blood 149 mg/dL (70-110)
[2022-05-09] MEDS: ASPIRIN 81 MG PO SCH (14:06)
[2022-05-09] MEDS: buPROPion SR 150 MG TABLET.ER PO SCH ×2 (14:07→20:46)
[2022-05-09] MEDS: cloNIDine HCL 0.1 MG TAB PO SCH ×3 (14:07→20:46)
[2022-05-09] MEDS: TORSEMIDE 20 MG TAB PO SCH (14:07)
[2022-05-09] MEDS: DULoxetine HCL 30 MG CAPSULE.DR PO SCH ×2 (14:07→20:46)
[2022-05-09] MEDS: ENOXAPARIN 30 MG/0.3 ML SYRINGE SQ SCH (14:08)
[2022-05-09 16:33] LABS: Glucose,Whole Blood 118 mg/dL (70-110)
[2022-05-09 19:01] LABS: Glucose,Whole Blood 253 mg/dL (70-110)
[2022-05-09 20:09] LABS: Glucose,Whole Blood 288 mg/dL (70-110)
[2022-05-09] MEDS: traZODone HCL 50 MG TAB PO PRN (20:46)
[2022-05-10 02:01] LABS: Glucose,Whole Blood 374 mg/dL (70-110)
[2022-05-10] MEDS: HYDROmorphone 0.5 MG/0.5 ML SYRINGE IVP PRN ×5 (04:10→20:52)
[2022-05-10] MEDS: diphenhydrAMINE 50 MG/ML 1 ML VIAL IVP PRN ×3 (04:11→20:54)
[2022-05-10 05:55] LABS: Glucose,Whole Blood 96 mg/dL (70-110)
[2022-05-10] MEDS: INSULIN ASPART (NovoLOG) 100 UNIT/ML VIAL SQ SCH ×7 (06:15→20:43)
[2022-05-10] MEDS: carvediloL 12.5 MG TAB PO SCH ×2 (06:33→16:39)
[2022-05-10] MEDS: PANTOPRAZOLE 40 MG TABLET PO SCH (06:33)
[2022-05-10] MEDS: CALCIUM ACETATE 667 MG TAB PO SCH ×3 (06:33→16:40)
[2022-05-10] MEDS: INSULIN DETEMIR (LEVEMIR) 100 UNIT/ML SYR SQ SCH (06:36)
--- NOTE | 2022-05-10 07:04 | PN ---
PROGRESS NOTE CHIEF COMPLAINT: Renal failure, hypertension, and diabetes. HISTORY OF PRESENT ILLNESS: This lady's blood sugars are fluctuating all over the place again. They are dropping low during the daytime and then they are very high at night. PHYSICAL EXAMINATION: CHEST: Clear. CARDIAC: Normal. ABDOMEN: Soft, nontender. She is being dialyzed at this time. IMPRESSION: 1. Stage 5 chronic kidney disease. 2. Uncontrolled hypertension. 3. Uncontrolled type 1 diabetes mellitus. PLAN: 1. Decrease Levemir dose. 2. Add short-acting insulin at bedtime. 3. Probably cut down on her preprandial NovoLog. MMODL / IJN: [id number] /
[2022-05-10] MEDS: ENOXAPARIN 30 MG/0.3 ML SYRINGE SQ SCH (08:22)
[2022-05-10] MEDS: cloNIDine HCL 0.1 MG TAB PO SCH ×3 (08:22→20:52)
[2022-05-10] MEDS: DULoxetine HCL 30 MG CAPSULE.DR PO SCH ×2 (08:22→20:52)
[2022-05-10] MEDS: TORSEMIDE 20 MG TAB PO SCH (08:22)
[2022-05-10] MEDS: ASPIRIN 81 MG PO SCH (08:22)
[2022-05-10] MEDS: buPROPion SR 150 MG TABLET.ER PO SCH ×2 (08:22→20:52)
[2022-05-10 11:33] LABS: Glucose,Whole Blood 54 mg/dL (70-110)
--- NOTE | 2022-05-10 11:39 | P.PN ---
Subjective Patient is seen for follow-up for end-stage renal disease. No significant complaints today Blood pressure is on the lower side with systolic around 10 6 mmHg Status post UF of 4.5 L yesterday with hemodialysis. Patient requesting to hold dialysis today. She is scheduled for hemodialysis in a.m. Objective - Vital Signs Vital signs: Vital Signs Temp 97.6 F 05/10/22 08:14 Pulse 77 05/10/22 08:15 Resp 16 05/10/22 08:15 BP 106/59 05/10/22 08:14 Pulse Ox 88 L 05/10/22 09:12 FiO2 50 04/28/22 12:00 Intake & Output 05/09/22 05/10/22 05/10/22 18:59 06:59 18:59 Intake Total 300 118 237 Output Total 4500 Balance -4200 118 237 Weight 49.8 kg Intake: Oral 118 237 Hemodialysis 300 Output: Hemodialysis 4500 Other: Voiding Method Toilet Toilet Toilet # Voids 1 2 # Bowel Movements 1 - Exam Patient is sitting up in bed Alert oriented 3 No acute distress Examination of the heart S1 and S2 Examination of the lungs bilateral breath sounds are heard Abdomen is soft nontender Examination of lower extremity shows no edema - Labs CBC & Chem 7: 05/09/22 07:32 05/09/22 17:09 Labs: Abnormal Lab Results - Last 24 Hours (Table) 05/09/22 05/09/22 05/09/22 Range/Units 12:48 13:34 16:30 POC Glucose (mg/dL) 57 L 149 H 118 H (70-110) mg/dL 05/09/22 05/09/22 05/10/22 Range/Units 18:59 20:07 01:59 POC Glucose (mg/dL) 253 H 288 H 374 H (70-110) mg/dL 05/10/22 Range/Units 11:29 POC Glucose (mg/dL) 54 L (70-110) mg/dL Assessment and Plan Assessment: 1. End-stage renal disease on hemodialysis on a Monday schedule. Multiple extra treatments due to volume overload and hyperkalemia 2. Volume overload, improved 3. COVID-19 PCR positive 4. CK D mineral bone disorder 5. Uncontrolled hypertension partly related to volume overload, improved with ultrafiltration 6. Status post cardiac arrest associated with hyperkalemia as well as respiratory depression from opiates. 7. Hyperkalemia status post emergency treatment last night. Patient's blood sugar was also significantly elevated at 562 causing significant shift of potassium. This has improved with insulin drip and hemodialysis. 8. Diarrhea, C. diff toxin negative. Currently improved Plan: Hold hemodialysis today Hemodialysis in a.m. Continue current antihypertensive medications and continue to avoid NSAIDs, Merrlil inhibitors and angiotensin receptor blockers.
[2022-05-10 11:50] LABS: Glucose,Whole Blood 83 mg/dL (70-110)
[2022-05-10 12:12] LABS: Calcium 8.8 mg/dL (8.4-10.2)
[2022-05-10 12:16] LABS: Potassium 5.7 mmol/L (3.5-5.1)
[2022-05-10] MEDS: ACETAMINOPHEN TAB 325 MG TAB PO PRN (14:10)
[2022-05-10] MEDS: LORazepam 1 MG TAB PO PRN (14:11)
--- NOTE | 2022-05-10 14:42 | P.PN ---
Subjective Progress Note Date: 05/10/22 On today's evaluation of 05/09/2022, the patient is being seen for a follow-up. The patient is currently undergoing hemodialysis. The patient is currently on room air oxygen. She undergoes dialysis on a regular basis. She got dialyzed in severity with a total of 2 L of fluid was removed. The patient is looking quite comfortable at this point in time. She was positive for Covid 19 without evidence of any significant pneumonia. She was in the intensive care unit earlier for hypoxic respiratory failure requiring oxygen and intermittent BiPAP use. She gradually improved after optimizing her volume status. Her blood work from today is showing a white second of 16 which is higher compared to baseline, hemoglobin is at 8.3 and a platelet count is at 268. Potassium level is up to 6.7 and the patient is undergoing hemodialysis and his sodium is at 131. LFTs are abnormal and the patient has an AST of 224 ALT of 180 alkaline phosphatase of 285. Her serum bilirubin total is at 1.7. Her BUN is at 91 with a creatinine of 5.4. Her most recent chest x-rays from 05/01/2022 and it was showing improvement in the multifocal airspace disease seen bilaterally. Most recent ultrasound the gallbladder that was done on 10/15/2021 showed enlarged liver, the gallbladder was surgically absent and common bile duct was essentially within normal limits. Another CAT scan of the abdomen that was done on 09/02/2021 showed no significant intra-abdominal abnormality. Liver was enlarged. There was a moderate degree of pericardial effusion and a tiny hiatal hernia. Small kidneys. No active bowel abnormalities. She is currently on Levemir insulin for blood sugar control 12 units in addition to NovoLog sliding scale coverage. She is on Demadex 40 mg by mouth daily. She is using Ventolin on an as-needed basis. On 05/12/2022, the patient is doing well. No specific complaints. Underwent hemodialysis yesterday. She has occasional cough. She had few episodes of epistaxis overnight, self-limiting. Blood work from today shows a potassium level of 5.7, BUN is 57 with a creatinine of 3.8. She is currently on room air oxygen with a pulse ox of 91%. Chest x-ray from yesterday show thyromegaly and some limited infiltration the left perihilar area. No cough. No sputum production. She is currently on no antibiotics. She is on Levemir insulin 8 units in addition to NovoLog 6 units with meals. She is taken Demadex 40 mg by mouth daily. She is also on clonidine 0.3 mg for blood pressure control in combination with Correctol 37.5 mg twice a day and Procardia XL 60 mg by mouth twice a day. She is on Dilaudid for pain control. Objective - Vital Signs Vital signs: Vital Signs Temp 98.0 F 05/10/22 11:48 Pulse 72 05/10/22 14:05 Resp 16 05/10/22 14:05 BP 124/74 05/10/22 11:48 Pulse Ox 91 L 05/10/22 11:48 FiO2 50 04/28/22 12:00 Intake & Output 05/09/22 05/10/22 05/10/22 18:59 06:59 18:59 Intake Total 300 118 355 Output Total 4500 0 Balance -4200 118 355 Weight 49.8 kg Intake: Oral 118 355 Hemodialysis 300 Output: Stool 0 Hemodialysis 4500 Other: Voiding Method Toilet Toilet Toilet # Voids 1 2 # Bowel Movements 1 - Exam No acute distress, oriented 3. Room air saturation is 95 %. HEENT examination is grossly unremarkable. Neck supple. Full range of motion. No adenopathy thyromegaly or neck vein distention. Cardiovascular examination reveals regular rhythm rate. S1-S2 normal. No S3 or S4. No discernible murmur noted. . Lungs reveal clear breath sounds. Breath sounds are equal bilaterally. No adventitious lung sounds including wheezes rhonchi or crackles. Abdomen soft bowel sounds are heard. No masses or tenderness. Extremities are intact. No cyanosis clubbing or edema. Skin is without rash or lesion. Neurologic examination is brief but nonfocal. - Labs CBC & Chem 7: 05/09/22 07:32 05/10/22 11:15 Labs: Abnormal Lab Results - Last 24 Hours (Table) 05/09/22 05/09/22 05/09/22 Range/Units 16:30 18:59 20:07 Potassium (3.5-5.1) mmol/L Carbon Dioxide (22-30) mmol/L BUN (7-17) mg/dL Creatinine (0.52-1.04) mg/dL Glucose (74-99) mg/dL POC Glucose (mg/dL) 118 H 253 H 288 H (70-110) mg/dL 05/10/22 05/10/22 05/10/22 Range/Units 01:59 11:15 11:29 Potassium 5.7 H (3.5-5.1) mmol/L Carbon Dioxide 21 L (22-30) mmol/L BUN 57 H (7-17) mg/dL Creatinine 3.88 H (0.52-1.04) mg/dL Glucose 47 L* (74-99) mg/dL POC Glucose (mg/dL) 374 H 54 L (70-110) mg/dL Assessment and Plan Plan: Acute hypoxemic hypercapnic respiratory failure, secondary to cardiac arrest, related to hyperkalemia, status post extubation on 04/27/2022. The patient is currently on room air oxygen. Most recent chest x-ray from 05/01/2022 was showing improvement in volume status. Despite being infected with Covid 19, the patient is currently out of isolation and there is no signs of any issues with oxygenation secondary to pneumonia. The hypoxic respiratory failure was most likely secondary to volume overload. The patient is clinically improved and oxygenation is also improved End-stage renal disease, currently undergoing hemodialysis. Acute coronavirus infection, without coronavirus associated pneumonia. Possible aspiration pneumonia. Fluid overload secondary to end-stage renal disease. History of CVA. Type 2 diabetes. Previous history of cardiac arrest. Diabetic retinopathy. History of depression. Abnormal LFTs Plan Obtain a follow-up chest x-ray was reviewed. Oxygenation is within normal limits Monitor potassium level Continue hemodialysis Patient is currently on room air oxygen We'll sign off the case
[2022-05-10 16:56] LABS: Glucose,Whole Blood 139 mg/dL (70-110)
[2022-05-10 20:24] LABS: Glucose,Whole Blood 130 mg/dL (70-110)
[2022-05-10] MEDS: traZODone HCL 50 MG TAB PO PRN (20:54)
[2022-05-11 00:13] LABS: Glucose,Whole Blood 448 mg/dL (70-110)
[2022-05-11] MEDS: INSULIN ASPART (NovoLOG) 100 UNIT/ML VIAL SQ SCH ×9 (00:14→21:03)
[2022-05-11 02:01] LABS: Glucose,Whole Blood 257 mg/dL (70-110)
[2022-05-11] MEDS: diphenhydrAMINE 50 MG/ML 1 ML VIAL IVP PRN ×3 (02:08→20:59)
[2022-05-11] MEDS: HYDROmorphone 0.5 MG/0.5 ML SYRINGE IVP PRN ×5 (02:08→23:30)
--- NOTE | 2022-05-11 03:13 | PN ---
PROGRESS NOTE CHIEF COMPLAINT: Uncontrolled diabetes and hypertension with renal failure. HISTORY OF PRESENT ILLNESS: This lady is just about the same. Her insulin has been adjusted once again. PHYSICAL EXAMINATION: CHEST: Clear. CARDIAC: Normal. ABDOMEN: Soft, nontender. IMPRESSION: 1. Uncontrolled hypertension. 2. Uncontrolled type 1 insulin-dependent diabetes mellitus. 3. Renal failure. 4. Depression. PLAN: Continue efforts to adjust insulin to control sugars without such wide sweeping numbers. MMODL / IJN: [id number] /
[2022-05-11] MEDS: ONDANSETRON 4 MG/2 ML VIAL IVP PRN (03:53)
[2022-05-11 06:24] LABS: Glucose,Whole Blood 350 mg/dL (70-110)
[2022-05-11] MEDS: CALCIUM ACETATE 667 MG TAB PO SCH ×3 (07:05→17:07)
[2022-05-11] MEDS: PANTOPRAZOLE 40 MG TABLET PO SCH (07:05)
[2022-05-11] MEDS: INSULIN DETEMIR (LEVEMIR) 100 UNIT/ML SYR SQ SCH (07:05)
[2022-05-11] MEDS: carvediloL 12.5 MG TAB PO SCH ×2 (07:05→17:07)
[2022-05-11] MEDS: ASPIRIN 81 MG PO SCH (07:51)
[2022-05-11] MEDS: ENOXAPARIN 30 MG/0.3 ML SYRINGE SQ SCH (07:51)
[2022-05-11] MEDS: buPROPion SR 150 MG TABLET.ER PO SCH ×2 (07:51→20:59)
[2022-05-11] MEDS: TORSEMIDE 20 MG TAB PO SCH (07:52)
[2022-05-11] MEDS: DULoxetine HCL 30 MG CAPSULE.DR PO SCH ×2 (07:52→20:59)
[2022-05-11 11:44] LABS: Glucose,Whole Blood 66 mg/dL (70-110)
[2022-05-11] MEDS: ALBUTEROL HFA INHALER INHALATION PRN (11:46)
[2022-05-11 12:05] LABS: Glucose,Whole Blood 73 mg/dL (70-110)
[2022-05-11 12:56] LABS: Glucose,Whole Blood 22 mg/dL (70-110)
[2022-05-11 13:10] LABS: Glucose,Whole Blood 45 mg/dL (70-110)
[2022-05-11] MEDS: cloNIDine HCL 0.1 MG TAB PO SCH ×3 (13:28→20:59)
[2022-05-11 13:31] LABS: Glucose,Whole Blood 87 mg/dL (70-110)
[2022-05-11] MEDS ORDERED: LOPERAMIDE 2 MG CAP PO PRN (14:53)
--- NOTE | 2022-05-11 16:13 | P.PN ---
Subjective Patient is seen for follow-up for end-stage renal disease. No significant complaints today Seen on HD. Tolerating treatment well. Objective - Vital Signs Vital signs: Vital Signs Temp 97.8 F 05/11/22 13:36 Pulse 81 05/11/22 13:36 Resp 18 05/11/22 13:36 BP 131/74 05/11/22 13:36 Pulse Ox 94 L 05/11/22 13:00 FiO2 50 04/28/22 12:00 Intake & Output 05/10/22 05/11/22 05/11/22 18:59 06:59 18:59 Intake Total 710 1445 Output Total 0 4500 Balance 710 -3055 Weight 49.8 kg Intake: IV 20 Invasive Line 8 20 Oral 710 1125 Hemodialysis 300 Output: Stool 0 0 Hemodialysis 4500 Other: Voiding Method Toilet Toilet Toilet # Voids 0 - Exam Patient is sitting up in bed Alert oriented 3 No acute distress Examination of the heart S1 and S2 Examination of the lungs bilateral breath sounds are heard Abdomen is soft nontender Examination of lower extremity shows no edema - Labs CBC & Chem 7: 05/09/22 07:32 05/10/22 11:15 Labs: Abnormal Lab Results - Last 24 Hours (Table) 05/10/22 05/10/22 05/11/22 Range/Units 16:53 20:23 00:11 POC Glucose (mg/dL) 139 H 130 H 448 H (70-110) mg/dL 05/11/22 05/11/22 05/11/22 Range/Units 02:00 06:23 11:42 POC Glucose (mg/dL) 257 H 350 H 66 L (70-110) mg/dL 05/11/22 05/11/22 Range/Units 12:54 13:09 POC Glucose (mg/dL) 22 L 45 L (70-110) mg/dL Assessment and Plan Assessment: 1. End-stage renal disease on hemodialysis on a Monday sc hedule. Multiple extra treatments due to volume overload and hyperkalemia 2. Volume overload, improved 3. COVID-19 PCR positive 4. CK D mineral bone disorder 5. Uncontrolled hypertension partly related to volume overload, improved with ultrafiltration 6. Status post cardiac arrest associated with hyperkalemia as well as respiratory depression from opiates. 7. Hyperkalemia status post emergency treatment last night. Patient's blood sugar was also significantly elevated at 562 causing significant shift of potassium. This has improved with insulin drip and hemodialysis. Plan: UF about 4 L as tolerated. Continue current antihypertensive medications and continue to avoid NSAIDs, Merrill inhibitors and angiotensin receptor blockers.
[2022-05-11] MEDS: ACETAMINOPHEN TAB 325 MG TAB PO PRN (16:21)
[2022-05-11 16:45] LABS: Glucose,Whole Blood 205 mg/dL (70-110)
[2022-05-11 18:19] LABS: Glucose,Whole Blood 83 mg/dL (70-110)
[2022-05-11 20:24] LABS: Glucose,Whole Blood 132 mg/dL (70-110)
[2022-05-12 02:26] LABS: Glucose,Whole Blood 572 mg/dL (70-110)
[2022-05-12 02:26] LABS: Glucose,Whole Blood 571 mg/dL (70-110)
--- NOTE | 2022-05-12 03:13 | PN ---
PROGRESS NOTE CHIEF COMPLAINT: Uncontrolled hypertension, diabetes. HISTORY OF PRESENT ILLNESS: This lady's sugars have been low in the last 24 hours. Blood pressure seems to be pretty well controlled. PHYSICAL EXAMINATION: CHEST: Clear. CARDIAC: Normal. IMPRESSION: 1. Stage 5 chronic kidney disease. 2. Uncontrolled type 1 insulin-dependent diabetes mellitus. 3. Uncontrolled hypertension. PLAN: Decrease her Lantus and continue to monitor blood sugars. MMODL / IJN: [id number] /
[2022-05-12] MEDS: HYDROmorphone 0.5 MG/0.5 ML SYRINGE IVP PRN ×3 (03:26→17:23)
[2022-05-12] MEDS: diphenhydrAMINE 50 MG/ML 1 ML VIAL IVP PRN ×3 (03:26→17:22)
[2022-05-12 03:58] LABS: Glucose,Whole Blood 375 mg/dL (70-110)
[2022-05-12 05:54] LABS: Glucose,Whole Blood 199 mg/dL (70-110)
[2022-05-12] MEDS: ACETAMINOPHEN TAB 325 MG TAB PO PRN (06:39)
[2022-05-12] MEDS: carvediloL 12.5 MG TAB PO SCH ×2 (06:40→17:22)
[2022-05-12] MEDS: PANTOPRAZOLE 40 MG TABLET PO SCH (06:40)
[2022-05-12] MEDS: INSULIN ASPART (NovoLOG) 100 UNIT/ML VIAL SQ SCH ×8 (06:40→23:13)
[2022-05-12] MEDS: CALCIUM ACETATE 667 MG TAB PO SCH ×3 (06:40→17:25)
[2022-05-12] MEDS: INSULIN DETEMIR (LEVEMIR) 100 UNIT/ML SYR SQ SCH (06:41)
[2022-05-12 08:26] LABS: Anisocytosis Slight; Basophils # (A) 0.1 k/uL (0-0.2); Basophils % (A) 1 %; Eosinophils # (A) 0.2 k/uL (0-0.7); Eosinophils % (A) 3 %; HCT 22.4 % (34.0-46.0); HGB 7.2 gm/dL (11.4-16.0); Hypochromasia Moderate; Lymphocytes # (A) 0.8 k/uL (1.0-4.8); Lymphocytes % (A) 14 %; MCHC 32.1 g/dL (31.0-37.0); MCV 99.7 fL (80.0-100.0); Macrocytosis Slight; Mean Platelet Volume 9.3; Monocytes # (A) 0.4 k/uL (0-1.0); Monocytes % (A) 6 %; Neutrophils # (A) 4.1 k/uL (1.3-7.7); Neutrophils % (A) 73 %; Platelet Count 205 k/uL (150-450); RBC 2.25 m/uL (3.80-5.40); RDW 16.8 % (11.5-15.5); WBC 5.6 k/uL (3.8-10.6)
[2022-05-12] MEDS: ALBUTEROL HFA INHALER INHALATION PRN ×2 (08:34→11:40)
--- NOTE | 2022-05-12 09:03 | XR ---
EXAMINATION TYPE: XR chest 1V DATE OF EXAM: 05/12/2022 COMPARISON: 05/09/2022 HISTORY: Shortness of breath TECHNIQUE: Single frontal view of the chest is obtained. FINDINGS: Patchy left-sided infiltrate is stable in appearance. Right lung clear. Heart is enlarged. No pneumothorax. Slightly prominent interstitial osseous structures are stable. Previous noted bilat eral rib fractures again seen. IMPRESSION: Persistent patchy infiltrate lung stable.
[2022-05-12] MEDS: ENOXAPARIN 30 MG/0.3 ML SYRINGE SQ SCH (09:23)
[2022-05-12] MEDS: DULoxetine HCL 30 MG CAPSULE.DR PO SCH ×2 (09:23→20:34)
[2022-05-12] MEDS: ASPIRIN 81 MG PO SCH (09:23)
[2022-05-12] MEDS: buPROPion SR 150 MG TABLET.ER PO SCH ×2 (09:25→20:34)
[2022-05-12 11:31] LABS: Glucose,Whole Blood 98 mg/dL (70-110)
--- NOTE | 2022-05-12 11:32 | P.PN ---
Subjective Patient is seen for follow-up for end-stage renal disease. No significant complaints today Seen on HD. Tolerating treatment well. Running extra treatment mostly for volume Objective - Vital Signs Vital signs: Vital Signs Temp 98 F 05/12/22 09:20 Pulse 68 05/12/22 09:20 Resp 16 05/12/22 09:20 BP 130/62 05/12/22 09:20 Pulse Ox 99 05/12/22 09:20 FiO2 50 04/28/22 12:00 Intake & Output 05/11/22 05/12/22 05/12/22 18:59 06:59 18:59 Intake Total 1682 360 480 Output Total 4500 0 Balance -2818 360 480 Intake: IV 20 Invasive Line 8 20 Oral 1362 360 480 Hemodialysis 300 Output: Stool 0 0 Hemodialysis 4500 Other: Voiding Method Toilet Toilet # Voids 0 - Exam Patient is sitting up in bed Alert oriented 3 No acute distress Examination of lower extremity shows no edema - Labs CBC & Chem 7: 05/12/22 07:58 05/12/22 07:58 Labs: Abnormal Lab Results - Last 24 Hours (Table) 05/11/22 05/11/22 05/11/22 Range/Units 11:42 12:54 13:09 RBC (3.80-5.40) m/uL Hgb (11.4-16.0) gm/dL Hct (34.0-46.0) % RDW (11.5-15.5) % Lymphocytes # (1.0-4.8) k/uL Potassium (3.5-5.1) mmol/L POC Glucose (mg/dL) 66 L 22 L 45 L (70-110) mg/dL 05/11/22 05/11/22 05/12/22 Range/Units 16:43 20:23 02:22 RBC (3.80-5.40) m/uL Hgb (11.4-16.0) gm/dL Hct (34.0-46.0) % RDW (11.5-15.5) % Lymphocytes # (1.0-4.8) k/uL Potassium (3.5-5.1) mmol/L POC Glucose (mg/dL) 205 H 132 H 571 H (70-110) mg/dL 05/12/22 05/12/2222 Range/Units 02:24 03:56 05:52 RBC (3.80-5.40) m/uL Hgb (11.4-16.0) gm/dL Hct (34.0-46.0) % RDW (11.5-15.5) % Lymphocytes # (1.0-4.8) k/uL Potassium (3.5-5.1) mmol/L POC Glucose (mg/dL) 572 H 375 H 199 H (70-110) mg/dL 05/12/22 05/12/22 Range/Units 07:58 07:58 RBC 2.25 L (3.80-5.40) m/uL Hgb 7.2 L (11.4-16.0) gm/dL Hct 22.4 L (34.0-46.0) % RDW 16.8 H (11.5-15.5) % Lymphocytes # 0.8 L (1.0-4.8) k/uL Potassium 5.3 H (3.5-5.1) mmol/L POC Glucose (mg/dL) (70-110) mg/dL Assessment and Plan Assessment: 1. End-stage renal disease on hemodialysis on a Monday schedule. Multiple extra treatments due to volume overload and hyperkalemia 2. Volume overload, improved 3. COVID-19 PCR positive 4. CK D mineral bone disorder 5. Uncontrolled hypertension partly related to volume overload, improved with ultrafiltration 6. Status post cardiac arrest associated with hyperkalemia as well as respiratory depression from opiates. 7. Hyperkalemia with history of chronic hyperkalemia. Need to continue to maintain off of MERRILL inhibitor's and angiotensin receptor blockers. Also maintain strict blood sugar control. Plan: UF about 3 L as tolerated. Repeat hemodialysis in a.m. Continue current antihypertensive medications and continue to avoid NSAIDs, Merrill inhibitors and angiotensin receptor blockers.
[2022-05-12] MEDS: cloNIDine HCL 0.1 MG TAB PO SCH ×3 (12:34→20:33)
[2022-05-12] MEDS: TORSEMIDE 20 MG TAB PO SCH (12:35)
[2022-05-12 14:20] LABS: Glucose,Whole Blood 35 mg/dL (70-110)
[2022-05-12 14:41] LABS: Glucose,Whole Blood 59 mg/dL (70-110)
[2022-05-12 14:51] LABS: Glucose,Whole Blood 77 mg/dL (70-110)
[2022-05-12 16:40] LABS: Glucose,Whole Blood 226 mg/dL (70-110)
[2022-05-12 19:56] LABS: Glucose,Whole Blood 274 mg/dL (70-110)
[2022-05-12] MEDS: hydrALAZINE HCL 50 MG TAB PO SCH (20:34)
[2022-05-13] MEDS: LORazepam 1 MG TAB PO PRN ×2 (00:16→07:57)
[2022-05-13] MEDS: diphenhydrAMINE 50 MG/ML 1 ML VIAL IVP PRN ×5 (00:16→23:46)
[2022-05-13] MEDS: ACETAMINOPHEN TAB 325 MG TAB PO PRN ×2 (01:01→13:51)
[2022-05-13] MEDS: HYDROmorphone 0.5 MG/0.5 ML SYRINGE IVP PRN ×5 (02:35→21:15)
[2022-05-13 03:13] LABS: Glucose,Whole Blood 448 mg/dL (70-110)
--- NOTE | 2022-05-13 03:38 | PN ---
PROGRESS NOTE CHIEF COMPLAINT: Uncontrolled hypertension, diabetes. HISTORY OF PRESENT ILLNESS: This lady's condition is just about the same. Her blood pressure is going back up again. Sugars have been quite low for the most part. PHYSICAL EXAMINATION: CHEST: Clear. CARDIAC: Normal. ABDOMEN: Soft, nontender. IMPRESSION: 1. Renal failure. 2. Uncontrolled diabetes. 3. Uncontrolled hypertension. PLAN: 1. Decrease NovoLog insulin during the day. 2. Add Apresoline back in, which seems to be the only thing that help maintain her blood pressure at a reasonable level. MMODL / IJN: [id number] /
[2022-05-13 06:04] LABS: Glucose,Whole Blood 320 mg/dL (70-110)
[2022-05-13] MEDS: carvediloL 12.5 MG TAB PO SCH ×2 (06:12→16:58)
[2022-05-13] MEDS: CALCIUM ACETATE 667 MG TAB PO SCH ×3 (06:12→16:59)
[2022-05-13] MEDS: INSULIN ASPART (NovoLOG) 100 UNIT/ML VIAL SQ SCH ×8 (06:12→22:00)
[2022-05-13] MEDS: PANTOPRAZOLE 40 MG TABLET PO SCH (06:12)
[2022-05-13] MEDS: ONDANSETRON 4 MG/2 ML VIAL IVP PRN (06:13)
[2022-05-13] MEDS: INSULIN DETEMIR (LEVEMIR) 100 UNIT/ML SYR SQ SCH (06:43)
[2022-05-13] MEDS: buPROPion SR 150 MG TABLET.ER PO SCH ×2 (07:52→22:01)
[2022-05-13] MEDS: DULoxetine HCL 30 MG CAPSULE.DR PO SCH ×2 (07:52→22:01)
[2022-05-13] MEDS: ENOXAPARIN 30 MG/0.3 ML SYRINGE SQ SCH (07:52)
[2022-05-13] MEDS: ASPIRIN 81 MG PO SCH (07:52)
[2022-05-13] MEDS: ALBUTEROL HFA INHALER INHALATION PRN ×2 (08:05→11:44)
[2022-05-13 09:23] LABS: Potassium 5.6 mmol/L (3.5-5.1)
[2022-05-13] MEDS: hydrALAZINE HCL 50 MG TAB PO SCH ×3 (10:30→21:16)
[2022-05-13] MEDS: cloNIDine HCL 0.1 MG TAB PO SCH ×3 (10:30→21:16)
--- NOTE | 2022-05-13 10:43 | P.PN ---
Subjective Patient is seen for follow-up for end-stage renal disease. No significant complaints today Seen on HD. Tolerating treatment well. Patient had an extra treatment yesterday with UF of about 4 L. Planning for another 4 L today. Objective - Vital Signs Vital signs: Vital Signs Temp 97.3 F L 05/13/22 08:02 Pulse 78 05/13/22 08:02 Resp 16 05/13/22 08:02 BP 117/66 05/13/22 08:02 Pulse Ox 92 L 05/13/22 08:02 FiO2 50 04/28/22 12:00 Intake & Output 05/12/22 05/13/22 05/13/22 18:59 06:59 18:59 Intake Total 1260 500 240 Output Total 4000 0 Balance -2740 500 240 Intake: Oral 960 500 240 Hemodialysis 300 Output: Stool 0 0 Hemodialysis 4000 Other: Voiding Method Toilet Toilet Toilet # Voids 0 1 - Exam Patient is sitting up in bed Alert oriented 3 No acute distress Examination of lower extremity shows no edema - Labs CBC & Chem 7: 05/12/22 07:58 05/13/22 07:15 Labs: Abnormal Lab Results - Last 24 Hours (Table) 05/12/22 05/12/22 05/12/22 Range/Units 14:12 14:29 16:38 Sodium (137-145) mmol/L Potassium (3.5-5.1) mmol/L Carbon Dioxide (22-30) mmol/L POC Glucose (mg/dL) 35 L 59 L 226 H (70-110) mg/dL 05/12/22 05/13/22 05/13/22 Range/Units 19:53 03:11 06:02 Sodium (137-145) mmol/L Potassium (3.5-5.1) mmol/L Carbon Dioxide (22-30) mmol/L POC Glucose (mg/dL) 274 H 448 H 320 H (70-110) mg/dL 05/13/22 Range/Units 07:15 Sodium 134 L (137-145) mmol/L Potassium 5.6 H (3.5-5.1) mmol/L Carbon Dioxide 20 L (22-30) mmol/L POC Glucose (mg/dL) (70-110) mg/dL Assessment and Plan Assessment: 1. End-stage renal disease on hemodialysis on a Monday schedule. Multiple extra treatments due to volume overload and hyperkalemia 2. Volume overload, improved 3. COVID-19 PCR positive 4. CK D mineral bone disorder 5. Uncontrolled hypertension partly related to volume overload, improved with ultrafiltration 6. Status post cardiac arrest associated with hyperkalemia as well as respiratory depression from opiates. 7. Hyperkalemia with history of chronic hyperkalemia. Need to continue to maintain off of MERRILL inhibitor's and angiotensin receptor blockers. Also maintain strict blood sugar control. Plan: Repeat hemodialysis in a.m. Continue current antihypertensive medications and continue to avoid NSAIDs, Merrill inhibitors and angiotensin receptor blockers.
[2022-05-13 11:28] LABS: Glucose,Whole Blood 142 mg/dL (70-110)
[2022-05-13] MEDS: TORSEMIDE 20 MG TAB PO SCH (12:02)
[2022-05-13 14:22] LABS: Anisocytosis Slight; Basophils # (A) 0.1 k/uL (0-0.2); Basophils % (A) 1 %; Eosinophils # (A) 0.2 k/uL (0-0.7); Eosinophils % (A) 3 %; HCT 22.8 % (34.0-46.0); Hypochromasia Marked; Lymphocytes # (A) 0.7 k/uL (1.0-4.8); Lymphocytes % (A) 12 %; MCH 30.8 pg (25.0-35.0); MCHC 30.8 g/dL (31.0-37.0); MCV 100.3 fL (80.0-100.0); Macrocytosis Slight; Monocytes # (A) 0.3 k/uL (0-1.0); Monocytes % (A) 4 %; Neutrophils # (A) 4.6 k/uL (1.3-7.7); Neutrophils % (A) 77 %; Platelet Count 207 k/uL (150-450); RBC 2.28 m/uL (3.80-5.40); RDW 16.8 % (11.5-15.5)
[2022-05-13 16:46] LABS: Glucose,Whole Blood 287 mg/dL (70-110)
[2022-05-13 21:05] LABS: Glucose,Whole Blood 230 mg/dL (70-110)
[2022-05-13] MEDS: traZODone HCL 50 MG TAB PO PRN (23:46)
[2022-05-14 00:08] LABS: Glucose,Whole Blood 33 mg/dL (70-110)
[2022-05-14 00:24] LABS: Glucose,Whole Blood 68 mg/dL (70-110)
[2022-05-14 00:43] LABS: Glucose,Whole Blood 55 mg/dL (70-110)
[2022-05-14 01:13] LABS: Glucose,Whole Blood 115 mg/dL (70-110)
--- NOTE | 2022-05-14 02:29 | PN ---
PROGRESS NOTE CHIEF COMPLAINT: Uncontrolled hypertension and diabetes. HISTORY OF PRESENT ILLNESS: This lady's condition is somewhat more stable. At least her blood pressures are better. Sugars are starting to rise and her Levemir will be increased. PHYSICAL EXAMINATION: CHEST: Clear. CARDIAC: Normal. ABDOMEN: Soft, nontender. IMPRESSION: 1. Uncontrolled diabetes. 2. Uncontrolled hypertension. 3. Stage 5 chronic kidney disease. 4. Amblyopia. PLAN: 1. Increase Levemir by 2 units. 2. Leave her hypertensive medications where they are and reassess in 24 hours. MMODL / IJN: [id number] /
[2022-05-14] MEDS: HYDROmorphone 0.5 MG/0.5 ML SYRINGE IVP PRN ×6 (03:25→23:59)
[2022-05-14 04:24] LABS: Glucose,Whole Blood 586 mg/dL (70-110)
[2022-05-14 05:16] LABS: Glucose,Whole Blood >600 mg/dL (70-110)
[2022-05-14] MEDS ORDERED: INSULIN ASPART (NovoLOG) 100 UNIT/ML VIAL SQ ONE (05:18)
[2022-05-14 06:46] LABS: Glucose,Whole Blood 548 mg/dL (70-110)
[2022-05-14] MEDS: diphenhydrAMINE 50 MG/ML 1 ML VIAL IVP PRN ×3 (06:46→22:29)
[2022-05-14 07:51] LABS: Glucose,Whole Blood 479 mg/dL (70-110)
[2022-05-14] MEDS: INSULIN ASPART (NovoLOG) 100 UNIT/ML VIAL SQ SCH ×6 (08:22→17:49)
[2022-05-14] MEDS: INSULIN DETEMIR (LEVEMIR) 100 UNIT/ML SYR SQ SCH (08:23)
[2022-05-14] MEDS: CALCIUM ACETATE 667 MG TAB PO SCH ×3 (08:26→17:48)
[2022-05-14] MEDS: buPROPion SR 150 MG TABLET.ER PO SCH ×2 (08:26→22:28)
--- NOTE | 2022-05-14 11:13 | P.PN ---
Subjective Patient is seen for follow-up for end-stage renal disease. No significant complaints today Seen on HD. Tolerating treatment well. Patient is having an extra treatment today. Blood sugars were elevated last night. Objective - Vital Signs Vital signs: Vital Signs Temp 98.2 F 05/14/22 08:09 Pulse 84 05/14/22 08:09 Resp 18 05/14/22 08:09 BP 159/82 05/14/22 08:09 Pulse Ox 99 05/14/22 08:09 FiO2 50 04/28/22 12:00 Intake & Output 05/13/22 05/14/22 05/14/22 18:59 06:59 18:59 Intake Total 1124 Output Total 4300 0 Balance -3176 0 Intake: Oral 824 Hemodialysis 300 Output: Stool 0 Hemodialysis 4300 Other: Voiding Method Toilet Toilet Toilet # Voids 2 - Exam Patient is sitting up in bed Alert oriented 3 No acute distress Examination of lower extremity shows no edema - Labs CBC & Chem 7: 05/13/22 07:15 05/13/22 07:15 Labs: Abnormal Lab Results - Last 24 Hours (Table) 05/13/22 05/13/22 05/13/22 Range/Units 07:15 11:28 16:41 RBC 2.28 L (3.80-5.40) m/uL Hgb 7.0 L (11.4-16.0) gm/dL Hct 22.8 L (34.0-46.0) % MCV 100.3 H (80.0-100.0) fL MCHC 30.8 L (31.0-37.0) g/dL RDW 16.8 H (11.5-15.5) % Lymphocytes # 0.7 L (1.0-4.8) k/uL POC Glucose (mg/dL) 142 H 287 H (70-110) mg/dL 05/13/22 05/14/22 05/14/22 Range/Units 21:03 00:06 00:23 RBC (3.80-5.40) m/uL Hgb (11.4-16.0) gm/dL Hct (34.0-46.0) % MCV (80.0-100.0) fL MCHC (31.0-37.0) g/dL RDW (11.5-15.5) % Lymphocytes # (1.0-4.8) k/uL POC Glucose (mg/dL) 230 H 33 L 68 L (70-110) mg/dL 05/14/22 05/14/22 05/14/22 Range/Units 00:42 01:12 04:20 RBC (3.80-5.40) m/uL Hgb (11.4-16.0) gm/dL Hct (34.0-46.0) % MCV (80.0-100.0) fL MCHC (31.0-37.0) g/dL RDW (11.5-15.5) % Lymphocytes # (1.0-4.8) k/uL POC Glucose (mg/dL) 55 L 115 H 586 H (70-110) mg/dL 05/14/22 05/14/22 05/14/22 Range/Units 05:08 06:45 07:50 RBC (3.80-5.40) m/uL Hgb (11.4-16.0) gm/dL Hct (34.0-46.0) % MCV (80.0-100.0) fL MCHC (31.0-37.0) g/dL RDW (11.5-15.5) % Lymphocytes # (1.0-4.8) k/uL POC Glucose (mg/dL) >600 H 548 H 479 H (70-110) mg/dL Assessment and Plan Assessment: 1. End-stage renal disease on hemodialysis on a Monday schedule. Multiple extra treatments due to volume overload and hyperkalemia 2. Volume overload, improved 3. COVID-19 PCR positive 4. CK D mineral bone disorder 5. Uncontrolled hypertension partly related to volume overload, improved with ultrafiltration 6. Status post cardiac arrest associated with hyperkalemia as well as respiratory depression from opiates. 7. Hyperkalemia with history of chronic hyperkalemia. Need to continue to maintain off of CHANDA inhibitor's and angiotensin receptor blockers. Also m aintain strict blood sugar control. Plan: Hemodialysis today with goal UF 3-4 L as tolerated
[2022-05-14] MEDS: ALBUTEROL HFA INHALER INHALATION PRN ×3 (11:18→20:11)
[2022-05-14 11:20] LABS: Glucose,Whole Blood 68 mg/dL (70-110)
[2022-05-14 11:39] LABS: Glucose,Whole Blood 72 mg/dL (70-110)
[2022-05-14 12:10] LABS: Glucose,Whole Blood 93 mg/dL (70-110)
[2022-05-14] MEDS: carvediloL 12.5 MG TAB PO SCH ×2 (15:04→17:49)
[2022-05-14] MEDS: cloNIDine HCL 0.1 MG TAB PO SCH ×2 (15:04→16:16)
[2022-05-14] MEDS: hydrALAZINE HCL 50 MG TAB PO SCH ×3 (15:04→22:27)
[2022-05-14] MEDS: ASPIRIN 81 MG PO SCH (15:13)
[2022-05-14] MEDS: TORSEMIDE 20 MG TAB PO SCH (15:14)
[2022-05-14] MEDS: DULoxetine HCL 30 MG CAPSULE.DR PO SCH ×2 (15:14→22:27)
[2022-05-14] MEDS: DARBEPOETIN ALFA 60 MCG/0.3 ML SYRINGE SQ SCH (16:14)
[2022-05-14 16:53] LABS: Glucose,Whole Blood 422 mg/dL (70-110)
[2022-05-14] MEDS: ENOXAPARIN 30 MG/0.3 ML SYRINGE SQ SCH (17:31)
[2022-05-14 21:20] LABS: Glucose,Whole Blood 241 mg/dL (70-110)
[2022-05-14] MEDS: traZODone HCL 50 MG TAB PO PRN (22:32)
[2022-05-15] MEDS: INSULIN ASPART (NovoLOG) 100 UNIT/ML VIAL SQ SCH ×10 (01:00→23:13)
[2022-05-15 01:01] LABS: Glucose,Whole Blood >600 mg/dL (70-110)
[2022-05-15 01:39] LABS: Glucose,Whole Blood >600 mg/dL (70-110)
[2022-05-15 02:06] LABS: Glucose,Whole Blood 539 mg/dL (70-110)
[2022-05-15] MEDS: LORazepam 1 MG TAB PO PRN (02:45)
[2022-05-15] MEDS: diphenhydrAMINE 50 MG/ML 1 ML VIAL IVP PRN ×4 (04:07→21:46)
[2022-05-15] MEDS: HYDROmorphone 0.5 MG/0.5 ML SYRINGE IVP PRN ×5 (04:07→21:46)
[2022-05-15 06:45] LABS: Glucose,Whole Blood 457 mg/dL (70-110)
[2022-05-15] MEDS: carvediloL 12.5 MG TAB PO SCH ×2 (06:52→17:28)
[2022-05-15] MEDS: INSULIN DETEMIR (LEVEMIR) 100 UNIT/ML SYR SQ SCH (06:52)
[2022-05-15] MEDS: PANTOPRAZOLE 40 MG TABLET PO SCH (06:53)
[2022-05-15] MEDS: CALCIUM ACETATE 667 MG TAB PO SCH ×3 (06:53→17:29)
[2022-05-15] MEDS: ONDANSETRON 4 MG/2 ML VIAL IVP PRN ×2 (06:58→23:16)
[2022-05-15] MEDS: ALBUTEROL HFA INHALER INHALATION PRN ×3 (07:53→19:44)
[2022-05-15] MEDS: ASPIRIN 81 MG PO SCH (09:14)
[2022-05-15] MEDS: cloNIDine HCL 0.1 MG TAB PO SCH ×4 (09:14→21:45)
[2022-05-15] MEDS: DULoxetine HCL 30 MG CAPSULE.DR PO SCH ×2 (09:15→21:45)
[2022-05-15] MEDS: hydrALAZINE HCL 50 MG TAB PO SCH ×3 (09:15→21:45)
[2022-05-15] MEDS: buPROPion SR 150 MG TABLET.ER PO SCH ×2 (09:15→21:46)
[2022-05-15] MEDS: TORSEMIDE 20 MG TAB PO SCH (09:16)
[2022-05-15] MEDS: ENOXAPARIN 30 MG/0.3 ML SYRINGE SQ SCH (09:17)
[2022-05-15 09:29] LABS: Glucose,Whole Blood 164 mg/dL (70-110)
--- NOTE | 2022-05-15 09:47 | P.PN ---
Subjective Patient is seen for follow-up for end-stage renal disease. No significant complaints today Status post hemodialysis yesterday with UF of 4 L. Patient continues to have increased intake of fluid, ice chips. Blood sugars remain fluctuating. Objective - Vital Signs Vital signs: Vital Signs Temp 98.4 F 05/15/22 08:26 Pulse 90 05/15/22 08:26 Resp 16 05/15/22 08:26 BP 164/83 05/15/22 08:26 Pulse Ox 94 L 05/15/22 08:26 FiO2 50 04/28/22 12:00 Intake & Output 05/14/22 05/15/22 05/15/22 18:59 06:59 18:59 Output Total 4000 Balance -4000 Output: Hemodialysis 4000 Other: Voiding Method Toilet Toilet # Voids 0 3 # Bowel Movements 0 - Exam Patient is sitting up in bed Alert oriented 3 No acute distress Examination of the heart S1 and S2 Examination of the lungs bilateral breath sounds are heard Abdomen is soft nontender Examination of lower extremity shows no edema - Labs CBC & Chem 7: 05/13/22 07:15 05/13/22 07:15 Labs: Abnormal Lab Results - Last 24 Hours (Table) 05/14/22 05/14/22 05/14/22 Range/Units 11:17 16:52 21:18 POC Glucose (mg/dL) 68 L 422 H 241 H (70-110) mg/dL 05/15/22 05/15/22 05/15/22 Range/Units 00:58 01:36 02:03 POC Glucose (mg/dL) >600 H >600 H 539 H (70-110) mg/dL 05/15/22 05/15/22 Range/Units 06:44 09:27 POC Glucose (mg/dL) 457 H 164 H (70-110) mg/dL Assessment and Plan Assessment: 1. End-stage renal disease on hemodialysis on a Monday schedule. Multiple extra treatments due to volume overload and hyperkalemia 2. Volume overload, improved 3. COVID-19 PCR positive 4. CK D mineral bone disorder 5. Uncontrolled hypertension partly related to volume overload, improved with ultrafiltration 6. Status post cardiac arrest associated with hyperkalemia as well as respiratory depression from opiates. 7. Hyperkalemia with history of chronic hyperkalemia. Need to continue to maintain off of CHANDA inhibitor's and angiotensin receptor blockers. Also mainta in strict blood sugar control. Plan: Hemodialysis in a.m. with goal UF 3-4 L as tolerated
[2022-05-15 10:10] LABS: Glucose,Whole Blood 81 mg/dL (70-110)
[2022-05-15 10:40] LABS: Glucose,Whole Blood 69 mg/dL (70-110)
[2022-05-15 10:59] LABS: Glucose,Whole Blood 102 mg/dL (70-110)
[2022-05-15 11:37] LABS: Glucose,Whole Blood 91 mg/dL (70-110)
[2022-05-15 13:42] LABS: African American GFR (CKD) 16.2 (60.0-200.0); Anion Gap 18.6 mmol/L (10.00-18.00); BUN/Creat Ratio 15.33 Ratio (12.00-20.00); Blood Urea Nitrogen 61.3 mg/dL (9.0-27.0); Calcium 9.2 mg/dL (8.7-10.3); Carbon Dioxide 17.4 mmol/L (20.0-27.5); Non-African American GFR(CKD) 13.9 (60.0-200.0); Potassium 5.1 mmol/L (3.5-5.5)
[2022-05-15 14:10] LABS: HCT 21.3 % (37.2-46.3); HGB 6.7 g/dL (12.0-15.0); MCH 30.7 pg (27.0-32.0); MCHC 31.5 g/dL (32.0-37.0); MCV 97.7 fL (80.0-97.0); Mean Platelet Volume 10.1 fL (9.5-12.2); NRBC Per 100 WBC 0 /100 WBCS (0.0-0.0); Platelet Count 274 X 10*3/uL (140-440); RBC 2.18 X 10*6/uL (4.10-5.20); RDW 15.4 % (11.5-14.5); WBC 7.28 X 10*3/uL (4.50-10.00)
[2022-05-15 15:06] LABS: Glucose,Whole Blood 177 mg/dL (70-110)
--- NOTE | 2022-05-15 16:04 | PN ---
PROGRESS NOTE DATE OF SERVICE: 05/14/2022 CHIEF COMPLAINT: Renal failure, hypertension, and diabetes. HISTORY OF PRESENT ILLNESS: This lady is unchanged. For the most part, her sugars and blood pressures have been a little bit better controlled. Dialysis continues. PHYSICAL EXAMINATION: CHEST: Clear. CARDIAC: Normal. ABDOMEN: Soft and nontender. IMPRESSION: 1. Renal failure. 2. Amblyopia. 3. Uncontrolled hypertension. 4. Uncontrolled diabetes. PLAN: Continue with current program. When and where she will go after hospitalization is not clear. MMODL / IJN: [id number] /
[2022-05-15 16:36] LABS: Glucose,Whole Blood 270 mg/dL (70-110)
[2022-05-15 20:43] LABS: Glucose,Whole Blood 137 mg/dL (70-110)
[2022-05-15 23:04] LABS: Glucose,Whole Blood 325 mg/dL (70-110)
--- NOTE | 2022-05-16 01:46 | PN ---
PROGRESS NOTE DATE OF SERVICE: 05/15/2022 CHIEF COMPLAINT: Renal failure, hypertension, diabetes. HISTORY OF PRESENT ILLNESS: This lady has continued to have the same difficulties with issues controlling diabetes and hypertension. I got a call in the middle of night last night that her blood sugars were up. It was reported by the nurse that the patient had refused dose of her insulin, but then when her sugar begin to rise, the insulin was given. Imperatively, she received the doses regardless of the patient's wishes. PHYSICAL EXAMINATION: GENERAL: She remains weak and lethargic. CHEST: Clear. CARDIAC: Normal. ABDOMEN: Soft, nontender. Blood pressure and blood sugar good today at this point. PLAN: No change in program. MMODL / IJN: [id number] /
[2022-05-16 02:15] LABS: Glucose,Whole Blood 214 mg/dL (70-110)
[2022-05-16] MEDS: traZODone HCL 50 MG TAB PO PRN ×2 (02:39→20:39)
[2022-05-16] MEDS: HYDROmorphone 0.5 MG/0.5 ML SYRINGE IVP PRN ×5 (02:39→20:38)
[2022-05-16] MEDS: diphenhydrAMINE 50 MG/ML 1 ML VIAL IVP PRN ×3 (04:09→20:39)
[2022-05-16 05:50] LABS: Glucose,Whole Blood 358 mg/dL (70-110)
[2022-05-16] MEDS: INSULIN ASPART (NovoLOG) 100 UNIT/ML VIAL SQ SCH ×8 (07:06→20:40)
[2022-05-16] MEDS: INSULIN DETEMIR (LEVEMIR) 100 UNIT/ML SYR SQ SCH (07:06)
[2022-05-16] MEDS: CALCIUM ACETATE 667 MG TAB PO SCH ×3 (07:07→17:24)
[2022-05-16] MEDS: PANTOPRAZOLE 40 MG TABLET PO SCH (07:07)
[2022-05-16] MEDS: carvediloL 12.5 MG TAB PO SCH ×2 (07:09→17:24)
[2022-05-16] MEDS: ONDANSETRON 4 MG/2 ML VIAL IVP PRN (07:15)
[2022-05-16] MEDS: ENOXAPARIN 30 MG/0.3 ML SYRINGE SQ SCH (09:29)
[2022-05-16] MEDS: ASPIRIN 81 MG PO SCH (09:30)
[2022-05-16] MEDS: buPROPion SR 150 MG TABLET.ER PO SCH ×2 (09:32→20:40)
[2022-05-16] MEDS: DULoxetine HCL 30 MG CAPSULE.DR PO SCH ×2 (09:32→20:40)
[2022-05-16] MEDS: ALBUTEROL HFA INHALER INHALATION PRN ×2 (09:37→13:00)
[2022-05-16 10:33] LABS: Glucose,Whole Blood 89 mg/dL (70-110)
--- NOTE | 2022-05-16 12:11 | P.PN ---
Subjective Patient is seen for follow-up for end-stage renal disease. No significant complaints today Seen on hemodialysis. Blood sugars not as chaotic No complaints today Objective - Vital Signs Vital signs: Vital Signs Temp 98.0 F 05/16/22 07:52 Pulse 87 05/16/22 08:00 Resp 17 05/16/22 08:00 BP 143/69 05/16/22 07:52 Pulse Ox 96 05/16/22 07:52 FiO2 50 04/28/22 12:00 Intake & Output 05/15/22 05/16/22 05/16/22 18:59 06:59 18:59 Intake Total 570 310 Output Total 0 Balance 570 310 0 Intake: Oral 570 Blood Product 310 Rc As-1 Unit 310 [id number] Output: Stool 0 Other: Voiding Method Toilet Toilet Toilet # Voids 3 - Exam Patient is sitting up in bed Alert oriented 3 No acute distress Examination of lower extremity shows no edema - Labs CBC & Chem 7: 05/15/22 07:46 05/15/22 07:46 Labs: Abnormal Lab Results - Last 24 Hours (Table) 05/15/22 05/15/22 05/15/22 Range/Units 07:46 07:46 15:05 RBC 2.18 L (4.10-5.20) X 10*6/uL Hgb 6.7 L* (12.0-15.0) g/dL Hct 21.3 L (37.2-46.3) % MCV 97.7 H (80.0-97.0) fL MCHC 31.5 L (32.0-37.0) g/dL RDW 15.4 H (11.5-14.5) % Sodium 129 L (135-145) mmol/L Chloride 93 L (96-109) mmol/L Carbon Dioxide 17.4 L (20.0-27.5) mmol/L Anion Gap 18.60 H (10.00-18.00) mmol/L BUN 61.3 H (9.0-27.0) mg/dL Creatinine 4.0 H (0.6-1.5) mg/dL Est GFR (CKD-EPI)AfAm 16.2 L (60.0-200.0) Est GFR (CKD-EPI)NonAf 13.9 L (60.0-200.0) Glucose 367 H (70-110) mg/dL POC Glucose (mg/dL) 177 H (70-110) mg/dL Crossmatch 05/15/22 05/15/22 05/15/22 Range/Units 16:36 18:38 20:41 RBC (4.10-5.20) X 10*6/uL Hgb (12.0-15.0) g/dL Hct (37.2-46.3) % MCV (80.0-97.0) fL MCHC (32.0-37.0) g/dL RDW (11.5-14.5) % Sodium (135-145) mmol/L Chloride (96-109) mmol/L Carbon Dioxide (20.0-27.5) mmol/L Anion Gap (10.00-18.00) mmol/L BUN (9.0-27.0) mg/dL Creatinine (0.6-1.5) mg/dL Est GFR (CKD-EPI)AfAm (60.0-200.0) Est GFR (CKD-EPI)NonAf (60.0-200.0) Glucose (70-110) mg/dL POC Glucose (mg/dL) 270 H 137 H (70-110) mg/dL Crossmatch See Detail 05/15/22 05/16/22 05/16/22 Range/Units 23:02 02:13 05:49 RBC (4.10-5.20) X 10*6/uL Hgb (12.0-15.0) g/dL Hct (37.2-46.3) % MCV (80.0-97.0) fL MCHC (32.0-37.0) g/dL RDW (11.5-14.5) % Sodium (135-145) mmol/L Chloride (96-109) mmol/L Carbon Dioxide (20.0-27.5) mmol/L Anion Gap (10.00-18.00) mmol/L BUN (9.0-27.0) mg/dL Creatinine (0.6-1.5) mg/dL Est GFR (CKD-EPI)AfAm (60.0-200.0) Est GFR (CKD-EPI)NonAf (60.0-200.0) Glucose (70-110) mg/dL POC Glucose (mg/dL) 325 H 214 H 358 H (70-110) mg/dL Crossmatch Assessment and Plan Assessment: 1. End-stage renal disease on hemodialysis on a Monday schedule. Multiple extra treatments due to volume overload and hyperkalemia 2. Volume overload, improved 3. COVID-19 PCR positive 4. CK D mineral bone disorder 5. Uncontrolled hypertension partly related to volume overload, improved with ultrafiltration 6. Status post cardiac arrest associated with hyperkalemia as well as respiratory depression from opiates. 7. Hyperkalemia with history of chronic hyperkalemia. Need to continue to maintain off of CHANDA inhibitor's and angiotensin receptor blockers. Also maintain strict blood sugar control. 8. Brittle diabetes Plan: Hemodialysis today with goal UF 3-4 L as tolerated
[2022-05-16] MEDS: cloNIDine HCL 0.1 MG TAB PO SCH ×3 (15:07→22:39)
[2022-05-16] MEDS: hydrALAZINE HCL 50 MG TAB PO SCH ×3 (15:07→20:41)
[2022-05-16] MEDS: TORSEMIDE 20 MG TAB PO SCH (15:17)
[2022-05-16 15:50] LABS: Glucose,Whole Blood 238 mg/dL (70-110)
[2022-05-16 20:03] LABS: Glucose,Whole Blood 152 mg/dL (70-110)
[2022-05-17] MEDS: HYDROmorphone 0.5 MG/0.5 ML SYRINGE IVP PRN ×5 (00:45→20:27)
[2022-05-17 02:15] LABS: Glucose,Whole Blood >600 mg/dL (70-110)
[2022-05-17] MEDS: INSULIN ASPART (NovoLOG) 100 UNIT/ML VIAL SQ SCH ×8 (02:21→20:51)
[2022-05-17] MEDS: diphenhydrAMINE 50 MG/ML 1 ML VIAL IVP PRN ×4 (02:22→23:24)
[2022-05-17 05:45] LABS: Glucose,Whole Blood 386 mg/dL (70-110)
[2022-05-17] MEDS: carvediloL 12.5 MG TAB PO SCH ×2 (06:02→17:14)
[2022-05-17] MEDS: PANTOPRAZOLE 40 MG TABLET PO SCH (06:02)
[2022-05-17] MEDS: CALCIUM ACETATE 667 MG TAB PO SCH ×3 (06:02→17:13)
[2022-05-17] MEDS: INSULIN DETEMIR (LEVEMIR) 100 UNIT/ML SYR SQ SCH (08:05)
[2022-05-17] MEDS: ASPIRIN 81 MG PO SCH (08:07)
[2022-05-17] MEDS: buPROPion SR 150 MG TABLET.ER PO SCH ×2 (08:08→20:28)
[2022-05-17] MEDS: DULoxetine HCL 30 MG CAPSULE.DR PO SCH ×2 (08:08→20:28)
[2022-05-17] MEDS: ENOXAPARIN 30 MG/0.3 ML SYRINGE SQ SCH ×2 (08:09→09:55)
[2022-05-17] MEDS: TORSEMIDE 20 MG TAB PO SCH (08:09)
[2022-05-17] MEDS: ONDANSETRON 4 MG/2 ML VIAL IVP PRN (08:10)
[2022-05-17] MEDS: hydrALAZINE HCL 50 MG TAB PO SCH ×3 (09:54→20:27)
[2022-05-17] MEDS: cloNIDine HCL 0.1 MG TAB PO SCH ×3 (09:55→20:27)
--- NOTE | 2022-05-17 10:24 | P.PN ---
Subjective Patient is seen for follow-up for end-stage renal disease. No significant complaints today Tolerated hemodialysis well yesterday Blood sugars not as chaotic No complaints today Objective - Vital Signs Vital signs: Vital Signs Temp 98.3 F 05/17/22 08:00 Pulse 79 05/17/22 09:50 Resp 14 05/17/22 08:00 BP 130/76 05/17/22 09:50 Pulse Ox 97 05/17/22 09:50 FiO2 50 04/28/22 12:00 Intake & Output 05/16/22 05/17/22 05/17/22 18:59 06:59 18:59 Intake Total 950 Output Total 4500 Balance -3550 Intake: Oral 650 Hemodialysis 300 Output: Stool 0 Hemodialysis 4500 Other: Voiding Method Toilet # Voids 0 # Bowel Movements 1 - Exam Patient is sitting up in bed Alert oriented 3 Examination of the heart S1 and S2 Examination of the lungs bilateral breath sounds are heard Abdomen is soft nontender No acute distress Examination of lower extremity shows no edema - Labs CBC & Chem 7: 05/15/22 07:46 05/15/22 07:46 Labs: Abnormal Lab Results - Last 24 Hours (Table) 05/16/22 05/16/22 05/17/22 Range/Units 15:48 20:02 02:14 POC Glucose (mg/dL) 238 H 152 H >600 H (70-110) mg/dL 05/17/22 Range/Units 05:43 POC Glucose (mg/dL) 386 H (70-110) mg/dL Assessment and Plan Assessment: 1. End-stage renal disease on hemodialysis on a Monday schedule. Multiple extra treatments due to volume overload and hyperkalemia 2. Volume overload, improved 3. COVID-19 PCR positive 4. CK D mineral bone disorder 5. Uncontrolled hypertension partly related to volume overload, improved with ultrafiltration 6. Status post cardiac arrest associated with hyperkalemia as well as respiratory depression from opiates. 7. Hyperkalemia with history of chronic hyperkalemia. Need to continue to maintain off of CHANDA inhibitor's and angiotensin receptor blockers. Also maintain strict blood sugar control. 8. Brittle diabetes Plan: Hemodialysis in a.m. with goal UF 3-4 L as tolerated
[2022-05-17 11:29] LABS: Glucose,Whole Blood 36 mg/dL (70-110)
[2022-05-17 11:46] LABS: Glucose,Whole Blood 60 mg/dL (70-110)
[2022-05-17 12:25] LABS: Glucose,Whole Blood 102 mg/dL (70-110)
[2022-05-17 15:52] LABS: Glucose,Whole Blood 112 mg/dL (70-110)
[2022-05-17 20:24] LABS: Glucose,Whole Blood 295 mg/dL (70-110)
[2022-05-17] MEDS: traZODone HCL 50 MG TAB PO PRN (20:32)
--- NOTE | 2022-05-18 01:32 | PN ---
PROGRESS NOTE DATE OF SERVICE: 05/16/2022 CHIEF COMPLAINT: Renal failure and hypertension. HISTORY OF PRESENT ILLNESS: This lady's sugars are rising slightly and we will increase her Levemir. Blood pressure has been under reasonably good control. Her hemoglobin has dropped to 6.5. PHYSICAL EXAMINATION: GENERAL: She remains pale and chronically ill. CHEST: Clear. CARDIAC: Normal. IMPRESSION: 1. Stage 5 chronic kidney disease. 2. Uncontrolled hypertension. 3. Uncontrolled type 1 diabetes mellitus. 4. Anemia. PLAN: 1. She will be transfused with 1 unit of packed cells. 2. Her Levemir will be increased from 6 to 8 units and every effort is being made to get her out of the hospital. MMODL / IJN: [id number] /
--- NOTE | 2022-05-18 01:42 | PN ---
PROGRESS NOTE DATE OF SERVICE: 05/17/2022 CHIEF COMPLAINT: Renal failure, uncontrolled hypertension, and diabetes. HISTORY OF PRESENT ILLNESS: This lady's numbers have been fairly good over the last 24 hours except for one elevated blood sugar. She is now complaining of some abdominal pain and nausea and vomiting. We are encouraging her to try to get out of the hospital at least for the holidays. PHYSICAL EXAMINATION: CHEST: Clear. CARDIAC: Normal. ABDOMEN: Flat, soft and nontender. There are no masses. IMPRESSION: 1. Abdominal pain with vomiting. 2. Stage 5 chronic kidney disease. 3. Uncontrolled hypertension. 4. Uncontrolled insulin-dependent diabetes mellitus. 5. Depression. PLAN: She remains stable, she was told we will try to get her out of the hospital tomorrow at home for the holidays. MMODL / IJN: [id number] /
[2022-05-18 02:04] LABS: Glucose,Whole Blood 316 mg/dL (70-110)
[2022-05-18] MEDS: HYDROmorphone 0.5 MG/0.5 ML SYRINGE IVP PRN ×5 (02:54→21:38)
[2022-05-18] MEDS: INSULIN ASPART (NovoLOG) 100 UNIT/ML VIAL SQ SCH ×9 (05:13→20:00)
[2022-05-18 05:26] LABS: Glucose,Whole Blood >600 mg/dL (70-110)
[2022-05-18 06:25] LABS: Anisocytosis Slight; HCT 28.1 % (34.0-46.0); HGB 8.3 gm/dL (11.4-16.0); Hypochromasia Marked; MCH 29.6 pg (25.0-35.0); MCHC 29.5 g/dL (31.0-37.0); MCV 100.5 fL (80.0-100.0); Macrocytosis Slight; Mean Platelet Volume 9.5; Platelet Count 293 k/uL (150-450); RBC 2.79 m/uL (3.80-5.40); RDW 16.9 % (11.5-15.5); WBC 6.8 k/uL (3.8-10.6)
[2022-05-18] MEDS ORDERED: INSULIN ASPART (NovoLOG) 100 UNIT/ML VIAL SQ ONE (06:37)
[2022-05-18] MEDS: INSULIN DETEMIR (LEVEMIR) 100 UNIT/ML SYR SQ SCH (06:49)
[2022-05-18 07:00] LABS: African American GFR (CKD) 9 (>60 ml/min/1.73 sqM); Anion Gap 18 mmol/L; Blood Urea Nitrogen 97 mg/dL (7-17); Calcium 8.7 mg/dL (8.4-10.2); Carbon Dioxide 16 mmol/L (22-30); Chloride 94 mmol/L (98-107); Non-African American GFR(CKD) 8 (>60 ml/min/1.73 sqM); Sodium 128 mmol/L (137-145)
[2022-05-18 07:01] LABS: Glucose 596 mg/dL (74-99)
[2022-05-18] MEDS ORDERED: CALCIUM GLUCONATE IN NACL 1 GM in SALINE 1 100ML.BAG IVPB ONE (07:01)
[2022-05-18 07:03] LABS: Potassium 8.4 mmol/L (3.5-5.1)
[2022-05-18] MEDS ORDERED: SODIUM BICARB 8.4% 50 ML SYR (1 MEQ/ML) IV STA ×2 (07:04→07:30)
[2022-05-18] MEDS ORDERED: ALBUTEROL NEBULIZED (CONC) 20 MG, SODIUM CHLORIDE 0.9% NEBULIZ 3 ML INHALATION ONE ×6 (07:04→09:15)
[2022-05-18] MEDS ORDERED: INSULIN REGULAR 100 UNIT/ML VIAL (IV) IV ONE ×3 (07:04→22:01)
--- NOTE | 2022-05-18 07:26 | P.EN ---
A- team: Indication: Wide complex tachycardia Vital signs reviewed: 138/82, P 85, SpO2 100% on 15L nonrebreather mask Patient with a complex past medical history including diabetes mellitus on hemodialysis, prolonged hospitalization with cardiac arrest, was noted to be developing widening of QRS on telemetry. Subsequent EKG revealed wide complex tachycardia. Laboratory evaluation revealed significantly elevated potassium of 8.4, glucose greater than 600. Assessment/Plan: Wide complex tachycardia, suspect secondary to significant hyperkalemia -Cocktail ordered including calcium gluconate and sodium bicarbonate IV push -Cardiology consulted -Patient moved to the medical ICU -Nephrology contacted for emergent hemodialysis -Obtain magnesium levels Disposition: Moved to Medical ICU Notified: Primary team and intensivists notified by the RN A Total of 35 minutes of critical care time was spent on the complex care of this patient.
[2022-05-18] MEDS ORDERED: INSULIN REGULAR BOLUS (FROM DRIP BAG) IV ONE (07:30)
[2022-05-18] MEDS ORDERED: INSULIN REGULAR 100 UNIT in SODIUM CHLORIDE 0.9% 100 ML IV SCH (07:30)
[2022-05-18] MEDS ORDERED: Magnesium Replacement Protocol 1 EACH MISC MISCELLANE PRN (07:30)
[2022-05-18] MEDS ORDERED: Potassium Replacement Protocol 1 EACH MISC MISCELLANE PRN (07:30)
[2022-05-18] MEDS ORDERED: SODIUM CHLORIDE 0.9% 1,000 ML IV SCH ×2 (07:30→10:45)
[2022-05-18] MEDS: DEXTROSE 50% SYRINGE 50 ML IVP PRN ×3 (07:49→12:50)
[2022-05-18] MEDS: carvediloL 12.5 MG TAB PO SCH ×2 (08:34→17:01)
[2022-05-18] MEDS: PANTOPRAZOLE 40 MG TABLET PO SCH (08:34)
[2022-05-18] MEDS: ASPIRIN 81 MG PO SCH (08:34)
[2022-05-18] MEDS: cloNIDine HCL 0.1 MG TAB PO SCH ×3 (08:35→21:37)
[2022-05-18] MEDS: hydrALAZINE HCL 50 MG TAB PO SCH ×3 (08:35→21:37)
[2022-05-18] MEDS: ENOXAPARIN 30 MG/0.3 ML SYRINGE SQ SCH (08:35)
[2022-05-18] MEDS: CALCIUM ACETATE 667 MG TAB PO SCH ×3 (08:35→17:02)
[2022-05-18] MEDS ORDERED: ALBUTEROL NEBULIZED 2.5 MG/3 ML INHALATION ONE (08:40)
[2022-05-18] MEDS ORDERED: ALBUTEROL NEB (CONC) 2.5 MG/0.5 ML INHALATION ONE ×2 (08:40)
--- NOTE | 2022-05-18 08:59 | P.PN ---
Subjective HISTORY OF PRESENTING ILLNESS Patient is pleasant 31-year-old female with history of end-stage renal disease on hemodialysis who initially was admitted to the hospital 04/25 secondary to COVID and had cardiac arrest earlier in hospitalization related to hyperkalemia. 05/18 Cardiology was reconsulted secondary to abnormal EKG this morning with bradycardia and widening of the QRS and was found to have potassium 8.4. She was treated with glucose and insulin and albuterol inhaler as well as calcium with improvement in her heart rate. Patient additionally was feeling short of breath and extremely weak with inability to pull herself up however this improved with treatment. Patient scheduled to undergo hemodialysis emergently. PHYSICAL EXAMINATION Vital signs reviewed. CONSTITUTIONAL: No apparent distress. HEENT: Head is normocephalic. Pupils are equal, round. Sclerae anicteric. Mucous membranes of the mouth are moist. No JVD. No carotid bruit. CHEST EXAMINATION: Lungs are clear to auscultation. No chest wall tenderness is noted on palpation or with deep breathing. HEART EXAMINATION: Regular rate and rhythm. S1, S2 heard. No murmurs, gallops or rub. ABDOMEN: Soft, nontender. Positive bowel sounds. EXTREMITIES: 2+ peripheral pulses, no lower extremity edema and no calf tenderness. NEUROLOGIC EXAMINATION: Patient is awake, alert and oriented x3. ASSESSMENT 1. Status post cardiac arrest related to hyperkalemia previous in hospitalization 2. Bradycardia, widening QRS related to hyperkalemia 3. COVID-19, improved 4. End-stage renal disease 5. Diabetes mellitus PLAN Patient's EKG changes related to severe hyperkalemia. Patient treated with medications and currently being worked up for emergency hemodialysis. If patient has any further widening of her QRS may need additional doses of calcium. Continue supportive care. Objective - Vital Signs Vital signs: Vital Signs Temp 98 F 05/18/22 08:00 Pulse 82 05/18/22 08:00 Resp 21 05/18/22 08:00 BP 155/73 05/18/22 08:00 Pulse Ox 100 05/18/22 08:00 FiO2 50 04/28/22 12:00 Intake & Output 05/17/22 05/18/22 05/18/22 18:59 06:59 18:59 Weight 49.8 kg Other: Voiding Method Toilet # Voids 1 - Labs CBC & Chem 7: 05/18/22 04:30 05/18/22 04:30 Labs: Abnormal Lab Results - Last 24 Hours (Table) 05/17/22 05/17/22 05/17/22 Range/Units 11:27 11:45 15:51 RBC (3.80-5.40) m/uL Hgb (11.4-16.0) gm/dL Hct (34.0-46.0) % MCV (80.0-100.0) fL MCHC (31.0-37.0) g/dL RDW (11.5-15.5) % Sodium (137-145) mmol/L Potassium (3.5-5.1) mmol/L Chloride (98-107) mmol/L Carbon Dioxide (22-30) mmol/L BUN (7-17) mg/dL Creatinine (0.52-1.04) mg/dL Glucose (74-99) mg/dL POC Glucose (mg/dL) 36 L 60 L 112 H (70-110) mg/dL 05/17/22 05/18/22 05/18/22 Range/Units 20:23 02:03 04:30 RBC 2.79 L (3.80-5.40) m/uL Hgb 8.3 L (11.4-16.0) gm/dL Hct 28.1 L (34.0-46.0) % MCV 100.5 H (80.0-100.0) fL MCHC 29.5 L (31.0-37.0) g/dL RDW 16.9 H (11.5-15.5) % Sodium (137-145) mmol/L Potassium (3.5-5.1) mmol/L Chloride (98-107) mmol/L Carbon Dioxide (22-30) mmol/L BUN (7-17) mg/dL Creatinine (0.52-1.04) mg/dL Glucose (74-99) mg/dL POC Glucose (mg/dL) 295 H 316 H (70-110) mg/dL 05/18/22 05/18/22 Range/Units 04:30 05:22 RBC (3.80-5.40) m/uL Hgb (11.4-16.0) gm/dL Hct (34.0-46.0) % MCV (80.0-100.0) fL MCHC (31.0-37.0) g/dL RDW (11.5-15.5) % Sodium 128 L (137-145) mmol/L Potassium 8.4 H* (3.5-5.1) mmol/L Chloride 94 L (98-107) mmol/L Carbon Dioxide 16 L (22-30) mmol/L BUN 97 H (7-17) mg/dL Creatinine 6.55 H (0.52-1.04) mg/dL Glucose 596 H* (74-99) mg/dL POC Glucose (mg/dL) >600 H (70-110) mg/dL
[2022-05-18 09:00] LABS: Glucose,Whole Blood >600 mg/dL (70-110)
[2022-05-18] MEDS: diphenhydrAMINE 50 MG/ML 1 ML VIAL IVP PRN ×2 (09:02→17:06)
--- NOTE | 2022-05-18 09:03 | XR ---
EXAMINATION TYPE: XR chest 1V portable DATE OF EXAM: 05/18/2022 COMPARISON: 05/12/2022 HISTORY: Arrhythmia TECHNIQUE: Single frontal view of the chest is obtained. FINDINGS: There is continued cardiomegaly. There are peripheral infiltrates noted which may reflect pneumonia. Pulmonary vasculature is mildly engorged as well. Hilar and mediastinal structures are stable. IMPRESSION: 1. Continued cardiomegaly with peripheral infiltrates.
[2022-05-18] MEDS: DULoxetine HCL 30 MG CAPSULE.DR PO SCH ×2 (09:51→20:37)
[2022-05-18] MEDS: buPROPion SR 150 MG TABLET.ER PO SCH ×2 (09:52→20:37)
[2022-05-18 09:57] LABS: Glucose,Whole Blood 307 mg/dL (70-110)
--- NOTE | 2022-05-18 11:23 | P.PN ---
Subjective Patient is seen for follow-up for end-stage renal disease. This morning patient had a change in her rhythm. Electrolytes were checked and her potassium was noted to be 8.4. Serum blood sugar was also elevated at 596. Patient has been transferred to the ICU she is currently seen on hemodialysis. Currently maintained on insulin drip. Last potassium was 5.1 on 05/15/2022 Serum acetone is ordered to rule out DKA since her CO2 also dropped to 16 Objective - Vital Signs Vital signs: Vital Signs Temp 98 F 05/18/22 08:00 Pulse 82 05/18/22 09:40 Resp 21 05/18/22 08:00 BP 155/73 05/18/22 08:00 Pulse Ox 100 05/18/22 08:00 FiO2 50 04/28/22 12:00 Intake & Output 05/17/22 05/18/22 05/18/22 18:59 06:59 18:59 Intake Total 564.867 Output Total 0 Balance 564.867 Weight 49.8 kg Intake: IV 350 Sodium Chloride 0.9% 1, 200 000 ml @ 200 mls/hr IV . Q5H [facility] Rx#:[id number] Sodium Chloride 0.9% 1, 150 000 ml @ 75 mls/hr IV . [id number] [facility] Rx#:[id number] Intake, IV Titration 14.867 Amount Insulin Regular 100 unit 14.867 In Sodium Chloride 0.9% 100 ml @ 0.1 UNITS/KG/HR 5.03 mls/hr IV .Q20H5M [facility] Rx#:[id number] Oral 200 Output: Stool 0 Other: Voiding Method Toilet Bedpan # Voids 1 0 - Exam Patient is sitting up in bed Alert oriented 3 Examination of the heart S1 and S2 Examination of the lungs bilateral breath sounds are heard Abdomen is soft nontender No acute distress Examination of lower extremity shows no edema - Labs CBC & Chem 7: 05/18/22 04:30 05/18/22 09:45 Labs: Abnormal Lab Results - Last 24 Hours (Table) 05/17/22 05/17/22 05/17/22 Range/Units 11:27 11:45 15:51 RBC (3.80-5.40) m/uL Hgb (11.4-16.0) gm/dL Hct (34.0-46.0) % MCV (80.0-100.0) fL MCHC (31.0-37.0) g/dL RDW (11.5-15.5) % Sodium (137-145) mmol/L Potassium (3.5-5.1) mmol/L Chloride (98-107) mmol/L Carbon Dioxide (22-30) mmol/L BUN (7-17) mg/dL Creatinine (0.52-1.04) mg/dL Glucose (74-99) mg/dL POC Glucose (mg/dL) 36 L 60 L 112 H (70-110) mg/dL 05/17/22 05/18/22 05/18/22 Range/Units 20:23 02:03 04:30 RBC 2.79 L (3.80-5.40) m/uL Hgb 8.3 L (11.4-16.0) gm/dL Hct 28.1 L (34.0-46.0) % MCV 100.5 H (80.0-100.0) fL MCHC 29.5 L (31.0-37.0) g/dL RDW 16.9 H (11.5-15.5) % Sodium (137-145) mmol/L Potassium (3.5-5.1) mmol/L Chloride (98-107) mmol/L Carbon Dioxide (22-30) mmol/L BUN (7-17) mg/dL Creatinine (0.52-1.04) mg/dL Glucose (74-99) mg/dL POC Glucose (mg/dL) 295 H 316 H (70-110) mg/dL 05/18/22 05/18/22 05/18/22 Range/Units 04:30 05:22 08:59 RBC (3.80-5.40) m/uL Hgb (11.4-16.0) gm/dL Hct (34.0-46.0) % MCV (80.0-100.0) fL MCHC (31.0-37.0) g/dL RDW (11.5-15.5) % Sodium 128 L (137-145) mmol/L Potassium 8.4 H* (3.5-5.1) mmol/L Chloride 94 L (98-107) mmol/L Carbon Dioxide 16 L (22-30) mmol/L BUN 97 H (7-17) mg/dL Creatinine 6.55 H (0.52-1.04) mg/dL Glucose 596 H* (74-99) mg/dL POC Glucose (mg/dL) >600 H >600 H (70-110) mg/dL 05/18/22 05/18/22 Range/Units 09:45 09:56 RBC (3.80-5.40) m/uL Hgb (11.4-16.0) gm/dL Hct (34.0-46.0) % MCV (80.0-100.0) fL MCHC (31.0-37.0) g/dL RDW (11.5-15.5) % Sodium (137-145) mmol/L Potassium (3.5-5.1) mmol/L Chloride (98-107) mmol/L Carbon Dioxide (22-30) mmol/L BUN (7-17) mg/dL Creatinine (0.52-1.04) mg/dL Glucose 359 H (74-99) mg/dL POC Glucose (mg/dL) 307 H (70-110) mg/dL Assessment and Plan Assessment: 1. End-stage renal disease on hemodialysis on a Monday schedule. Multiple extra treatments due to volume overload and hyperkalemia 2. Volume overload, improved 3. COVID-19 PCR positive 4. CK D mineral bone disorder 5. Uncontrolled hypertension partly related to volume overload, improved with ultrafiltration 6. Status post cardiac arrest associated with hyperkalemia as well as respiratory depression from opiates. 7. Hyperkalemia with history of chronic hyperkalemia. Need to continue to maintain off of CHANDA inhibitor's and angiotensin receptor blockers. Also maintain strict blood sugar control. Serum potassium was elevated at 8.4 with blood sugars of close to 600. Currently maintained on insulin drip and receiving stat dialysis treatment. 8. Brittle diabetes Plan: Hemodialysis today and then repeat again in a.m. Repeat potassium levels later on today Control blood sugars
[2022-05-18 11:26] LABS: Glucose,Whole Blood 41 mg/dL (70-110)
[2022-05-18 11:26] LABS: Glucose,Whole Blood 40 mg/dL (70-110)
[2022-05-18 11:37] LABS: Glucose,Whole Blood 38 mg/dL (70-110)
[2022-05-18 11:56] LABS: Glucose,Whole Blood 56 mg/dL (70-110)
[2022-05-18 12:18] LABS: Glucose,Whole Blood 86 mg/dL (70-110)
[2022-05-18 12:42] LABS: Glucose,Whole Blood 36 mg/dL (70-110)
[2022-05-18 13:17] LABS: Glucose,Whole Blood 109 mg/dL (70-110)
[2022-05-18 13:32] VITALS: BMI 18.7
[2022-05-18] MEDS: TORSEMIDE 20 MG TAB PO SCH (13:33)
[2022-05-18 13:39] LABS: Glucose,Whole Blood 62 mg/dL (70-110)
[2022-05-18 14:03] LABS: Glucose,Whole Blood 57 mg/dL (70-110)
--- NOTE | 2022-05-18 14:26 | P.PN ---
Subjective Progress Note Date: 05/18/22 Principal diagnosis: Abnormal EKG with wide-complex tachycardia This is a 31-year-old female with history of chronic kidney disease/renal failure on hemodialysis. History of previous CVA and previous cardiac arrest, patient presented to the ER on 04/24/22 presented mostly with 1 week history of cough, shortness of breath, and chest pain upon coughing. Pain was described by the ER physician as sharp, no radiation, pain was not associated with diaphoresis, no nausea no vomiting no abdominal pain. Patient had her last hemodialysis 2 days prior. Chest x-ray upon her initial evaluation showed evidence of pulmonary vascular congestion consistent with pulmonary edema/fluid overload, patient tested positive for COVID-19 infection, patient had low pulse oximetry on her initial presentation 85% on room air, and went up to 93% on 2 L. Patient was admitted, and she was seen by nephrology on consultation on 04/25 and she was also seen by her admitting physician on 04/26. On 04/26, at around 1800 p.m., CARLA EDWARD was called overhead. Sound physician responded to the code , patient was being resuscitated upon his arrival. Patient was in asystole and she received a total of 4 epinephrines, 2 bicarb, 1 calcium given patient was intubated however she was noted to have emesis during intubation, and she may have had visible aspiration. Cold lasted about 7 minutes, patient was sent to the ICU on mechanical ventilation. Her potassium was above 8, nephrology was notified, and the patient received treatment for heart high potassium and she received immediate hemodialysis while in the ICU. I was notified about this patient shortly after she arrived to the ICU, and I recommended ventilatory support, adjusted her ventilator settings she initially required high FiO2 and high PEEP. She required more sedation utilizing propofol and Versed because she was still agitated and restless with propofol alone at maximal dose. Recommended Zosyn empirically for presumptive aspiration pneumonia recommended GI and DVT prophylaxis, immediate hemodialysis by nephrology, and reviewed her ABG, and her vent settings were adjusted accordingly. Patient is now in the ICU on mechanical ventilation, she is on assist control rate of 28th of volume 400 FiO2 40% and PEEP of 12. ABG showed a pO2 of 143 pCO2 41 pH of 7.38. And I recommended cutting down the PEEP down to 5, and kept her on 40% FiO2. Patient will be receiving more hemodialysis today. Hemoglobin is down to 6.4 and she'll be receiving 1 unit of packed RBCs. She will also receive hemodialysis again today. She had a temp of 103, cultures are pending and I'm recommending Zosyn for now for presumptive aspiration pneumonia. Patient is on Versed at 7 mg per hour, propofol at 75 mcg/kg/m, her IV fluids at KVO, she is also on insulin drip. This morning labs showed hemoglobin of 6.4. Normal electrolytes, bicarb is normal, BUN is 32 creatinine 3.47. As mentioned earlier patient had positive PCR for COVID-19 infection Reevaluated today on 04/28/22, patient was extubated yesterday, and she was placed initially on nasal cannula, however at night she was transitioned to BiPAP. Presently on BiPAP 12/5/100%, and I cut down her FiO2 to 50%. Patient is undergoing hemodialysis. Patient is also on insulin drip. Patient is tolerating BiPAP quite well, she is arousable, follows simple instructions, does not seem to be in distress. Her IV fluids at KVO. Chest x-ray showed evidence of pulmonary edema. Underlying pneumonia is not entirely ruled out, considering the patient did have witnessed aspiration. However her chest x-ray will likely improve post dialysis. WBC count today is 8.8 hemoglobin is 7.2. Electrolytes are normal BUN is 30 creatinine 2.97 Reevaluated today on 04/29/22, patient remains in the ICU, remains on 3 L nasal cannula with O2 sat she is 100%, she is receiving hemodialysis this morning, she had 4 L of fluid removed on 04/28. Remains empirically on Zosyn for presumptive aspiration pneumonia she is now on insulin at 5.42 units per hour to control her blood sugars. Otherwise the patient is doing well, relatively asymptomatic. Hemoglobin is 7.6 WBC count is 8.4, basic metabolic profile is normal bicarb is 24 lites are normal Reevaluated today on 05/27/22, patient is doing well today, she is on 3 L nasal cannula, intermittently on BiPAP 12/5/50%, patient is sitting in bed, eating her breakfast, she had uneventful hemodialysis yesterday, and 2 L of fluids were removed. Her sugar is all over the place, it is fluctuating up and down, and that is to be addressed by the admitting physician. She is on Zosyn empirically for aspiration pneumonia, chest x-ray will be done in a.m. for follow-up on her aspiration pneumonia. Patient was also presented with COVID-19 infection, underlying COVID-19 pneumonia is not entirely ruled out. WBC count is 6.8 hemoglobin 8.4. Normal bicarb is 22 BUN is 50 creatinine is 2.80 blood sugar this morning is 204 Reevaluated today on 05/01/22, patient remains in the ICU, she is doing much better today, breathing a lot easier, she did undergo dialysis yesterday, and she had almost 2 L removed yesterday. Today the patient is doing great, her chest x-ray is showing dramatic improvement, patient is only on 2 L nasal cannula, saturating well, and she does not seem to be in any distress. She remains on IV insulin at 2 units per hour, I'm recommending that we start long- acting insulin/Levemir insulin and sliding scale coverage, and I'll arrange for the patient to be transferred out of the ICU to a monitor bed on [facility]. WBC count today is 7.4 hemoglobin is 8.2. Basic metabolic profile is normal BUN is 54 creatinine 2.81, blood sugar is ranging between 274 and 400. Patient had negative C. diff. On 05/12/2022, the patient is doing well. No specific complaints. Underwent hemodialysis yesterday. She has occasional cough. She had few episodes of epistaxis overnight, self-limiting. Blood work from today shows a potassium level of 5.7, BUN is 57 with a creatinine of 3.8. She is currently on room air oxygen with a pulse ox of 91%. Chest x-ray from yesterday show thyromegaly and some limited infiltration the left perihilar area. No cough. No sputum production. She is currently on no antibiotics. She is on Levemir insulin 8 units in addition to NovoLog 6 units with meals. She is taken Demadex 40 mg by mouth daily. She is also on clonidine 0.3 mg for blood pressure control in combination with Correctol 37.5 mg twice a day and Procardia XL 60 mg by mouth twice a day. She is on Dilaudid for pain control. On 05/18/2022, patient was transferred back to the ICU this morning, we have not seen this patient since 05/12/2022. Apparently she was never discharged home, she has been managed by many consultants and by her primary care physician as well as nephrology, patient has been receiving dialysis while inpatient, and this morning the hospitalist responded to the patient with having wide-complex tachycardia. Immediate basic metabolic profile showed that the patient had high potassium of 8.4, and she had a blood sugar of over 600. Her last blood work was done actually 3 days ago, and no labs have been ordered by the admitting physician since then. Her last potassium on 05/15 was 5.1, and her blood sugar was 325 at the time. Considering her wide-complex tachycardia and her hyperkalemia, patient received a cocktail for hyperkalemia by the hospitalist, and she was appropriately transferred to the ICU after discussing the case with me over the phone patient remained on the cocktail for hyperkalemia she had immediate hemodialysis as soon as she arrived to the ICU and she was placed on insulin drip. Patient was placed on a nonrebreather mask and later transitioned to hypotension liters high flow cannula. Chest x-ray showed evidence of interstitial edema and cardiomegaly this will likely improve post hemodialysis. Patient was seen by nephrology, and immediate hemodialysis was ordered during my evaluation, the patient was noted to be relatively asymptomatic. In addition to all of this the patient has been recovering from COVID-19 infection. Objective - Vital Signs Vital signs: Vital Signs Temp 97.2 F L 05/18/22 13:42 Pulse 82 05/18/22 13:42 Resp 23 05/18/22 13:00 BP 154/87 05/18/22 13:42 Pulse Ox 98 05/18/22 13:00 FiO2 50 04/28/22 12:00 Intake & Output 05/17/22 05/18/22 05/18/22 18:59 06:59 18:59 Intake Total 1194.550 Output Total 4463 Balance -3268.450 Weight 49.8 kg 49.5 kg Intake: IV 500 Sodium Chloride 0.9% 1, 200 000 ml @ 200 mls/hr IV . Q5H [facility] Rx#:[id number] Sodium Chloride 0.9% 1, 300 000 ml @ 75 mls/hr IV . [id number] [facility] Rx#:[id number] Intake, IV Titration 31.550 Amount Insulin Regular 100 unit 31.550 In Sodium Chloride 0.9% 100 ml @ 0.1 UNITS/KG/HR 5.03 mls/hr IV .Q20H5M [facility] Rx#:[id number] Oral 200 Hemodialysis 463 Output: Hemodialysis 4463 Other: Voiding Method Toilet Bedpan # Voids 1 0 - Exam General: Revealed a 51-year-old female in no distress, on nonrebreather mask Head: Atraumatic, normocephalic. HEENT:[Neck is supple.] [No neck masses.] [No thyromegaly.] [No JVD.] Dry mucous membranes. Chest: Symmetrical chest expansion crackles at the bases. No rhonchi and no wheezes Cardiac Exam: [Normal S1 and S2, no S3 gallop, 2/6 systolic murmur thought the precordium. Abdomen: [Soft, nontender, no megaly, no rebound, no guarding, normal bowel sounds.] Extremities: [No clubbing, no edema, no cyanosis.] Neurological Exam: Alert oriented 3 no focal deficit. Psychiatric: Depressed mood and flat affect, normal mental status - Labs CBC & Chem 7: 05/18/22 04:30 05/18/22 09:45 Labs: Abnormal Lab Results - Last 24 Hours (Table) 05/17/22 05/17/22 05/18/22 Range/Units 15:51 20:23 02:03 RBC (3.80-5.40) m/uL Hgb (11.4-16.0) gm/dL Hct (34.0-46.0) % MCV (80.0-100.0) fL MCHC (31.0-37.0) g/dL RDW (11.5-15.5) % Sodium (137-145) mmol/L Potassium (3.5-5.1) mmol/L Chloride (98-107) mmol/L Carbon Dioxide (22-30) mmol/L BUN (7-17) mg/dL Creatinine (0.52-1.04) mg/dL Glucose (74-99) mg/dL POC Glucose (mg/dL) 112 H 295 H 316 H (70-110) mg/dL 05/18/22 05/18/22 05/18/22 Range/Units 04:30 04:30 05:22 RBC 2.79 L (3.80-5.40) m/uL Hgb 8.3 L (11.4-16.0) gm/dL Hct 28.1 L (34.0-46.0) % MCV 100.5 H (80.0-100.0) fL MCHC 29.5 L (31.0-37.0) g/dL RDW 16.9 H (11.5-15.5) % Sodium 128 L (137-145) mmol/L Potassium 8.4 H* (3.5-5.1) mmol/L Chloride 94 L (98-107) mmol/L Carbon Dioxide 16 L (22-30) mmol/L BUN 97 H (7-17) mg/dL Creatinine 6.55 H (0.52-1.04) mg/dL Glucose 596 H* (74-99) mg/dL POC Glucose (mg/dL) >600 H (70-110) mg/dL 05/18/22 05/18/22 05/18/22 Range/Units 08:59 09:45 09:56 RBC (3.80-5.40) m/uL Hgb (11.4-16.0) gm/dL Hct (34.0-46.0) % MCV (80.0-100.0) fL MCHC (31.0-37.0) g/dL RDW (11.5-15.5) % Sodium (137-145) mmol/L Potassium (3.5-5.1) mmol/L Chloride (98-107) mmol/L Carbon Dioxide (22-30) mmol/L BUN (7-17) mg/dL Creatinine (0.52-1.04) mg/dL Glucose 359 H (74-99) mg/dL POC Glucose (mg/dL) >600 H 307 H (70-110) mg/dL 05/18/22 05/18/22 05/18/22 Range/Units 11:18 11:19 11:35 RBC (3.80-5.40) m/uL Hgb (11.4-16.0) gm/dL Hct (34.0-46.0) % MCV (80.0-100.0) fL MCHC (31.0-37.0) g/dL RDW (11.5-15.5) % Sodium (137-145) mmol/L Potassium (3.5-5.1) mmol/L Chloride (98-107) mmol/L Carbon Dioxide (22-30) mmol/L BUN (7-17) mg/dL Creatinine (0.52-1.04) mg/dL Glucose (74-99) mg/dL POC Glucose (mg/dL) 40 L 41 L 38 L (70-110) mg/dL 05/18/22 05/18/22 05/18/22 Range/Units 11:55 12:40 13:37 RBC (3.80-5.40) m/uL Hgb (11.4-16.0) gm/dL Hct (34.0-46.0) % MCV (80.0-100.0) fL MCHC (31.0-37.0) g/dL RDW (11.5-15.5) % Sodium (137-145) mmol/L Potassium (3.5-5.1) mmol/L Chloride (98-107) mmol/L Carbon Dioxide (22-30) mmol/L BUN (7-17) mg/dL Creatinine (0.52-1.04) mg/dL Glucose (74-99) mg/dL POC Glucose (mg/dL) 56 L 36 L 62 L (70-110) mg/dL 05/18/22 Range/Units 14:01 RBC (3.80-5.40) m/uL Hgb (11.4-16.0) gm/dL Hct (34.0-46.0) % MCV (80.0-100.0) fL MCHC (31.0-37.0) g/dL RDW (11.5-15.5) % Sodium (137-145) mmol/L Potassium (3.5-5.1) mmol/L Chloride (98-107) mmol/L Carbon Dioxide (22-30) mmol/L BUN (7-17) mg/dL Creatinine (0.52-1.04) mg/dL Glucose (74-99) mg/dL POC Glucose (mg/dL) 57 L (70-110) mg/dL Assessment and Plan Assessment: Impression: 1 wide-complex tachycardia secondary to hyperkalemia, patient would require immediate hemodialysis and will require immediate treatment of her hyperkalemia as already done upon admission to the ICU. History of cardiac arrest on her initial presentation/initial hospitalization 04/24/22 Recent COVID-19 infection/subacute however no evidence of COVID-19 pneumonia. History of aspiration pneumonia from previous cardiac arrest. Fluid overload secondary to end-stage renal disease History of CVA/TIA Type 2 diabetes. End-stage renal disease, on hemodialysis. Previous history of cardiac arrest. History of diabetic retinopathy and neuropathy History of depression Patient has been extubated since 04/27/22 Recommendation: Continue to monitor in the ICU for now. Nephrology to see on consultation Immediate hemodialysis which is being done during my evaluation. Titrate oxygen accordingly. Insulin drip and close monitoring of the sugar. Continue to monitor electrolytes and sugars, address accordingly. We will continue to follow Time with Patient: Less than 30
[2022-05-18 14:32] LABS: Glucose,Whole Blood 86 mg/dL (70-110)
[2022-05-18 15:08] LABS: Glucose,Whole Blood 205 mg/dL (70-110)
[2022-05-18] MEDS: DEXTROSE 5%-0.9% NACL 1,000 ML IV SCH (15:09)
[2022-05-18 15:55] LABS: Glucose,Whole Blood 100 mg/dL (70-110)
[2022-05-18 16:43] LABS: Glucose,Whole Blood 83 mg/dL (70-110)
[2022-05-18 17:49] LABS: African American GFR (CKD) 29 (>60 ml/min/1.73 sqM); Anion Gap 10 mmol/L; Blood Urea Nitrogen 28 mg/dL (7-17); Carbon Dioxide 26 mmol/L (22-30); Chloride 98 mmol/L (98-107); Magnesium 1.9 mg/dL (1.6-2.3); Non-African American GFR(CKD) 25 (>60 ml/min/1.73 sqM); Phosphorus 4.4 mg/dL (2.5-4.5); Potassium 5.4 mmol/L (3.5-5.1); Sodium 134 mmol/L (137-145)
[2022-05-18 17:54] LABS: VBG PH 7.44 (7.31-7.41)
[2022-05-18 18:01] LABS: Glucose 43 mg/dL (74-99)
[2022-05-18 19:50] LABS: Glucose,Whole Blood 300 mg/dL (70-110)
[2022-05-18] MEDS: LORazepam 1 MG TAB PO PRN (20:03)
[2022-05-18 21:13] LABS: Phosphorus 5.1 mg/dL (2.5-4.5)
[2022-05-18 21:21] LABS: Potassium 6.6 mmol/L (3.5-5.1)
[2022-05-18] MEDS: traZODone HCL 50 MG TAB PO PRN (21:38)
[2022-05-18] MEDS ORDERED: SODIUM POLYSTYRENE SULFONATE 15 GM/60 ML BOTTLE PO STA (21:59)
[2022-05-18 22:16] LABS: Glucose,Whole Blood 55 mg/dL (70-110)
[2022-05-18 23:17] LABS: Glucose,Whole Blood 98 mg/dL (70-110)
[2022-05-19] MEDS ORDERED: SODIUM POLYSTYRENE SULFONATE 15 GM/60 ML BOTTLE PO ONE
[2022-05-19] MEDS: HYDROmorphone 0.5 MG/0.5 ML SYRINGE IVP PRN ×5 (01:09→20:43)
[2022-05-19 02:11] LABS: Glucose,Whole Blood 349 mg/dL (70-110)
[2022-05-19 06:52] LABS: Glucose,Whole Blood >600 mg/dL (70-110)
[2022-05-19] MEDS: INSULIN DETEMIR (LEVEMIR) 100 UNIT/ML SYR SQ SCH (07:06)
[2022-05-19] MEDS: PANTOPRAZOLE 40 MG TABLET PO SCH (07:06)
[2022-05-19] MEDS: CALCIUM ACETATE 667 MG TAB PO SCH ×3 (07:06→15:56)
[2022-05-19] MEDS: carvediloL 12.5 MG TAB PO SCH ×2 (07:06→15:56)
[2022-05-19] MEDS: INSULIN ASPART (NovoLOG) 100 UNIT/ML VIAL SQ SCH ×4 (07:07→20:44)
--- NOTE | 2022-05-19 07:45 | P.PN ---
Subjective HISTORY OF PRESENTING ILLNESS Patient is pleasant 31-year-old female with history of end-stage renal disease on hemodialysis who initially was admitted to the hospital 04/25 secondary to COVID and had cardiac arrest earlier in hospitalization related to hyperkalemia. 05/18 Cardiology was reconsulted secondary to abnormal EKG this morning with bradycardia and widening of the QRS and was found to have potassium 8.4. She was treated with glucose and insulin and albuterol inhaler as well as calcium with improvement in her heart rate. Patient additionally was feeling short of breath and extremely weak with inability to pull herself up however this improved with treatment. Patient scheduled to undergo hemodialysis emergently. 05/19 Patient seen and examined. Potassium decreased to 6.6 yesterday after dialysis and will work from this morning is not resulted. Denies any chest pain or pressure other than rib pain around her prior CPR. Denies any lightheadedness or dizziness. PHYSICAL EXAMINATION Vital signs reviewed. CONSTITUTIONAL: No apparent distress. HEENT: Head is normocephalic. Pupils are equal, round. Sclerae anicteric. Mucous membranes of the mouth are moist. No JVD. No carotid bruit. CHEST EXAMINATION: Lungs are clear to auscultation. No chest wall tenderness is noted on palpation or with deep breathing. HEART EXAMINATION: Regular rate and rhythm. S1, S2 heard. No murmurs, gallops or rub. ABDOMEN: Soft, nontender. Positive bowel sounds. EXTREMITIES: 2+ peripheral pulses, no lower extremity edema and no calf t enderness. NEUROLOGIC EXAMINATION: Patient is awake, alert and oriented x3. ASSESSMENT 1. Status post cardiac arrest related to hyperkalemia previous in hospitalization 2. Bradycardia, widening QRS related to hyperkalemia 3. COVID-19, improved 4. End-stage renal disease 5. Diabetes mellitus PLAN EKG changes improved after correcting potassium. Current supportive care and outpatient follow-up in 1 week after discharge. Objective - Vital Signs Vital signs: Vital Signs Temp 98.1 F 05/19/22 04:00 Pulse 87 05/19/22 07:00 Resp 19 05/19/22 07:00 BP 154/85 05/19/22 07:00 Pulse Ox 96 05/19/22 07:00 FiO2 50 04/28/22 12:00 Intake & Output 05/18/22 05/19/22 05/19/22 18:59 06:59 18:59 Intake Total 1569.550 475 Output Total 4463 Balance -2893.450 475 Weight 49.5 kg Intake: IV 875 375 Dextrose 5%-0.9% NaCl 1, 300 375 000 ml @ 75 mls/hr IV . [id number] [facility] Rx#:[id number] Sodium Chloride 0.9% 1, 200 000 ml @ 200 mls/hr IV . Q5H [facility] Rx#:[id number] Sodium Chloride 0.9% 1, 375 000 ml @ 75 mls/hr IV . [id number] [facility] Rx#:[id number] Intake, IV Titration 31.550 Amount Insulin Regular 100 unit 31.550 In Sodium Chloride 0.9% 100 ml @ 0.1 UNITS/KG/HR 5.03 mls/hr IV .Q20H5M [facility] Rx#:[id number] Oral 200 100 Hemodialysis 463 Output: Hemodialysis 4463 Other: Voiding Method Bedpan # Voids 0 0 0 - Labs CBC & Chem 7: 05/18/22 04:30 05/18/22 20:02 Labs: Abnormal Lab Results - Last 24 Hours (Table) 05/18/22 05/18/22 05/18/22 Range/Units 08:59 09:45 09:56 VBG pH (7.31-7.41) Sodium (137-145) mmol/L Potassium (3.5-5.1) mmol/L Chloride (98-107) mmol/L BUN (7-17) mg/dL Creatinine (0.52-1.04) mg/dL Glucose 359 H (74-99) mg/dL POC Glucose (mg/dL) >600 H 307 H (70-110) mg/dL Phosphorus (2.5-4.5) mg/dL 05/18/22 05/18/22 05/18/22 Range/Units 11:18 11:19 11:35 VBG pH (7.31-7.41) Sodium (137-145) mmol/L Potassium (3.5-5.1) mmol/L Chloride (98-107) mmol/L BUN (7-17) mg/dL Creatinine (0.52-1.04) mg/dL Glucose (74-99) mg/dL POC Glucose (mg/dL) 40 L 41 L 38 L (70-110) mg/dL Phosphorus (2.5-4.5) mg/dL 05/18/22 05/18/22 05/18/22 Range/Units 11:55 12:40 13:37 VBG pH (7.31-7.41) Sodium (137-145) mmol/L Potassium (3.5-5.1) mmol/L Chloride (98-107) mmol/L BUN (7-17) mg/dL Creatinine (0.52-1.04) mg/dL Glucose (74-99) mg/dL POC Glucose (mg/dL) 56 L 36 L 62 L (70-110) mg/dL Phosphorus (2.5-4.5) mg/dL 05/18/22 05/18/22 05/18/22 Range/Units 14:01 15:06 16:31 VBG pH 7.44 H (7.31-7.41) Sodium (137-145) mmol/L Potassium (3.5-5.1) mmol/L Chloride (98-107) mmol/L BUN (7-17) mg/dL Creatinine (0.52-1.04) mg/dL Glucose (74-99) mg/dL POC Glucose (mg/dL) 57 L 205 H (70-110) mg/dL Phosphorus (2.5-4.5) mg/dL 05/18/22 05/18/22 05/18/22 Range/Units 16:31 19:48 20:02 VBG pH (7.31-7.41) Sodium 134 L 128 L (137-145) mmol/L Potassium 5.4 H 6.6 H* (3.5-5.1) mmol/L Chloride 96 L (98-107) mmol/L BUN 28 H 33 H (7-17) mg/dL Creatinine 2.48 H 2.78 H (0.52-1.04) mg/dL Glucose 43 L* 303 H (74-99) mg/dL POC Glucose (mg/dL) 300 H (70-110) mg/dL Phosphorus 5.1 H (2.5-4.5) mg/dL 05/18/22 05/19/22 05/19/22 Range/Units 22:15 02:09 06:51 VBG pH (7.31-7.41) Sodium (137-145) mmol/L Potassium (3.5-5.1) mmol/L Chloride (98-107) mmol/L BUN (7-17) mg/dL Creatinine (0.52-1.04) mg/dL Glucose (74-99) mg/dL POC Glucose (mg/dL) 55 L 349 H >600 H (70-110) mg/dL Phosphorus (2.5-4.5) mg/dL
--- NOTE | 2022-05-19 07:55 | P.PN ---
Subjective Patient is seen for follow-up for end-stage renal disease. patient was transferred to the ICU yesterday as her serum potassium was noted to be 8.2 with significantly elevated blood sugars as well. Patient was maintained on insulin drip. Patient was dialyzed yesterday and serum sodium last night was 6.6. Patient received couple of doses of Kayexalate and IV insulin and is scheduled for hemodialysis again today. I do see that patient has bananas and potatoes on her breakfast tray. These foods are high in potassium and should be avoided. Patient is scheduled for hemodialysis today Objective - Vital Signs Vital signs: Vital Signs Temp 98.1 F 05/19/22 04:00 Pulse 87 05/19/22 07:00 Resp 19 05/19/22 07:00 BP 154/85 05/19/22 07:00 Pulse Ox 96 05/19/22 07:00 FiO2 50 04/28/22 12:00 Intake & Output 05/18/22 05/19/22 05/19/22 18:59 06:59 18:59 Intake Total 1569.550 475 Output Total 4463 Balance -2893.450 475 Weight 49.5 kg Intake: IV 875 375 Dextrose 5%-0.9% NaCl 1, 300 375 000 ml @ 75 mls/hr IV . [id number] [facility] Rx#:[id number] Sodium Chloride 0.9% 1, 200 000 ml @ 200 mls/hr IV . Q5H [facility] Rx#:[id number] Sodium Chloride 0.9% 1, 375 000 ml @ 75 mls/hr IV . [id number] [facility] Rx#:[id number] Intake, IV Titration 31.550 Amount Insulin Regular 100 unit 31.550 In Sodium Chloride 0.9% 100 ml @ 0.1 UNITS/KG/HR 5.03 mls/hr IV .Q20H5M [facility] Rx#:[id number] Oral 200 100 Hemodialysis 463 Output: Hemodialysis 4463 Other: Voiding Method Bedpan # Voids 0 0 0 - Exam Patient is sitting up in bed Alert oriented 3 Examination of the heart S1 and S2 Examination of the lungs bilateral breath sounds are heard Abdomen is soft nontender No acute distress Examination of lower extremity shows no edema - Labs CBC & Chem 7: 05/18/22 04:30 05/18/22 20:02 Labs: Abnormal Lab Results - Last 24 Hours (Table) 05/18/22 05/18/22 05/18/22 Range/Units 08:59 09:45 09:56 VBG pH (7.31-7.41) Sodium (137-145) mmol/L Potassium (3.5-5.1) mmol/L Chloride (98-107) mmol/L BUN (7-17) mg/dL Creatinine (0.52-1.04) mg/dL Glucose 359 H (74-99) mg/dL POC Glucose (mg/dL) >600 H 307 H (70-110) mg/dL Phosphorus (2.5-4.5) mg/dL 05/18/22 05/18/22 05/18/22 Range/Units 11:18 11:19 11:35 VBG pH (7.31-7.41) Sodium (137-145) mmol/L Potassium (3.5-5.1) mmol/L Chloride (98-107) mmol/L BUN (7-17) mg/dL Creatinine (0.52-1.04) mg/dL Glucose (74-99) mg/dL POC Glucose (mg/dL) 40 L 41 L 38 L (70-110) mg/dL Phosphorus (2.5-4.5) mg/dL 05/18/22 05/18/22 05/18/22 Range/Units 11:55 12:40 13:37 VBG pH (7.31-7.41) Sodium (137-145) mmol/L Potassium (3.5-5.1) mmol/L Chloride (98-107) mmol/L BUN (7-17) mg/dL Creatinine (0.52-1.04) mg/dL Glucose (74-99) mg/dL POC Glucose (mg/dL) 56 L 36 L 62 L (70-110) mg/dL Phosphorus (2.5-4.5) mg/dL 05/18/22 05/18/22 05/18/22 Range/Units 14:01 15:06 16:31 VBG pH 7.44 H (7.31-7.41) Sodium (137-145) mmol/L Potassium (3.5-5.1) mmol/L Chloride (98-107) mmol/L BUN (7-17) mg/dL Creatinine (0.52-1.04) mg/dL Glucose (74-99) mg/dL POC Glucose (mg/dL) 57 L 205 H (70-110) mg/dL Phosphorus (2.5-4.5) mg/dL 05/18/22 05/18/22 05/18/22 Range/Units 16:31 19:48 20:02 VBG pH (7.31-7.41) Sodium 134 L 128 L (137-145) mmol/L Potassium 5.4 H 6.6 H* (3.5-5.1) mmol/L Chloride 96 L (98-107) mmol/L BUN 28 H 33 H (7-17) mg/dL Creatinine 2.48 H 2.78 H (0.52-1.04) mg/dL Glucose 43 L* 303 H (74-99) mg/dL POC Glucose (mg/dL) 300 H (70-110) mg/dL Phosphorus 5.1 H (2.5-4.5) mg/dL 05/18/22 05/19/22 05/19/22 Range/Units 22:15 02:09 06:51 VBG pH (7.31-7.41) Sodium (137-145) mmol/L Potassium (3.5-5.1) mmol/L Chloride (98-107) mmol/L BUN (7-17) mg/dL Creatinine (0.52-1.04) mg/dL Glucose (74-99) mg/dL POC Glucose (mg/dL) 55 L 349 H >600 H (70-110) mg/dL Phosphorus (2.5-4.5) mg/dL Assessment and Plan Assessment: 1. End-stage renal disease on hemodialysis on a Monday schedule. Multiple extra treatments due to volume overload and hyperkalemia 2. Volume overload, improved 3. COVID-19 PCR positive 4. CK D mineral bone disorder 5. Uncontrolled hypertension partly related to volume overload, improved with ultrafiltration 6. Status post cardiac arrest associated with hyperkalemia as well as respiratory depression from opiates. 7. Hyperkalemia with history of chronic hyperkalemia. Need to continue to maintain off of MERRILL inhibitor's and angiotensin receptor blockers. Also maintain strict blood sugar control. Serum potassium was elevated at 8.4 with blood sugars of close to 600. Currently maintained on insulin drip and status post insulin drip 8. Brittle diabetes with severe fluctuations in blood sugars Plan: Hemodialysis today and then again in a.m. Low potassium diet Control blood sugars, consider endocrinology consult. Continue to avoid Merrill inhibitors and angiotensin receptor blockers.
[2022-05-19] MEDS: DEXTROSE 5%-0.9% NACL 1,000 ML IV SCH ×2 (08:02→15:56)
[2022-05-19 08:12] LABS: Glucose,Whole Blood 590 mg/dL (70-110)
[2022-05-19] MEDS: LORazepam 1 MG TAB PO PRN (08:29)
[2022-05-19] MEDS: diphenhydrAMINE 50 MG/ML 1 ML VIAL IVP PRN ×3 (08:29→22:20)
[2022-05-19] MEDS ORDERED: DEXTROSE 50% SYRINGE 50 ML IVP PRN ×4 (08:48→17:01)
[2022-05-19] MEDS ORDERED: INSULIN REGULAR 100 UNIT in SODIUM CHLORIDE 0.9% 100 ML IV SCH (09:00)
[2022-05-19 09:06] LABS: Anisocytosis Slight; HCT 26.3 % (34.0-46.0); HGB 8.4 gm/dL (11.4-16.0); Hypochromasia Marked; MCV 99.8 fL (80.0-100.0); Macrocytosis Slight; Mean Platelet Volume 8.8; Platelet Count 313 k/uL (150-450); RBC 2.63 m/uL (3.80-5.40); RDW 16.4 % (11.5-15.5); WBC 6.5 k/uL (3.8-10.6)
[2022-05-19 09:16] LABS: Calcium 8.6 mg/dL (8.4-10.2); Potassium 4.5 mmol/L (3.5-5.1)
[2022-05-19 09:28] LABS: Glucose,Whole Blood 228 mg/dL (70-110)
[2022-05-19 10:52] LABS: Glucose,Whole Blood 89 mg/dL (70-110)
[2022-05-19 11:49] LABS: Glucose,Whole Blood 70 mg/dL (70-110)
--- NOTE | 2022-05-19 11:52 | P.PN ---
Subjective Progress Note Date: 05/19/22 Principal diagnosis: Abnormal EKG with wide-complex tachycardia This is a 31-year-old female with history of chronic kidney disease/renal failure on hemodialysis. History of previous CVA and previous cardiac arrest, patient presented to the ER on 04/24/22 presented mostly with 1 week history of cough, shortness of breath, and chest pain upon coughing. Pain was described by the ER physician as sharp, no radiation, pain was not associated with diaphoresis, no nausea no vomiting no abdominal pain. Patient had her last hemodialysis 2 days prior. Chest x-ray upon her initial evaluation showed evidence of pulmonary vascular congestion consistent with pulmonary edema/fluid overload, patient tested positive for COVID-19 infection, patient had low pulse oximetry on her initial presentation 85% on room air, and went up to 93% on 2 L. Patient was admitted, and she was seen by nephrology on consultation on 04/25 and she was also seen by her admitting physician on 04/26. On 04/26, at around 1800 p.m., CARLA EDWARD was called overhead. Sound physician responded to the code , patient was being resuscitated upon his arrival. Patient was in asystole and she received a total of 4 epinephrines, 2 bicarb, 1 calcium given patient was intubated however she was noted to have emesis during intubation, and she may have had visible aspiration. Cold lasted about 7 minutes, patient was sent to the ICU on mechanical ventilation. Her potassium was above 8, nephrology was notified, and the patient received treatment for heart high potassium and she received immediate hemodialysis while in the ICU. I was notified about this patient shortly after she arrived to the ICU, and I recommended ventilatory support, adjusted her ventilator settings she initially required high FiO2 and high PEEP. She required more sedation utilizing propofol and Versed because she was still agitated and restless with propofol alone at maximal dose. Recommended Zosyn empirically for presumptive aspiration pneumonia recommended GI and DVT prophylaxis, immediate hemodialysis by nephrology, and reviewed her ABG, and her vent settings were adjusted accordingly. Patient is now in the ICU on mechanical ventilation, she is on assist control rate of 28th of volume 400 FiO2 40% and PEEP of 12. ABG showed a pO2 of 143 pCO2 41 pH of 7.38. And I recommended cutting down the PEEP down to 5, and kept her on 40% FiO2. Patient will be receiving more hemodialysis today. Hemoglobin is down to 6.4 and she'll be receiving 1 unit of packed RBCs. She will also receive hemodialysis again today. She had a temp of 103, cultures are pending and I'm recommending Zosyn for now for presumptive aspiration pneumonia. Patient is on Versed at 7 mg per hour, propofol at 75 mcg/kg/m, her IV fluids at KVO, she is also on insulin drip. This morning labs showed hemoglobin of 6.4. Normal electrolytes, bicarb is normal, BUN is 32 creatinine 3.47. As mentioned earlier patient had positive PCR for COVID-19 infection Reevaluated today on 04/28/22, patient was extubated yesterday, and she was placed initially on nasal cannula, however at night she was transitioned to BiPAP. Presently on BiPAP 12/5/100%, and I cut down her FiO2 to 50%. Patient is undergoing hemodialysis. Patient is also on insulin drip. Patient is tolerating BiPAP quite well, she is arousable, follows simple instructions, does not seem to be in distress. Her IV fluids at KVO. Chest x-ray showed evidence of pulmonary edema. Underlying pneumonia is not entirely ruled out, considering the patient did have witnessed aspiration. However her chest x-ray will likely improve post dialysis. WBC count today is 8.8 hemoglobin is 7.2. Electrolytes are normal BUN is 30 creatinine 2.97 Reevaluated today on 04/29/22, patient remains in the ICU, remains on 3 L nasal cannula with O2 sat she is 100%, she is receiving hemodialysis this morning, she had 4 L of fluid removed on 04/28. Remains empirically on Zosyn for presumptive aspiration pneumonia she is now on insulin at 5.42 units per hour to control her blood sugars. Otherwise the patient is doing well, relatively asymptomatic. Hemoglobin is 7.6 WBC count is 8.4, basic metabolic profile is normal bicarb is 24 lites are normal Reevaluated today on 05/27/22, patient is doing well today, she is on 3 L nasal cannula, intermittently on BiPAP 12/5/50%, patient is sitting in bed, eating her breakfast, she had uneventful hemodialysis yesterday, and 2 L of fluids were removed. Her sugar is all over the place, it is fluctuating up and down, and that is to be addressed by the admitting physician. She is on Zosyn empirically for aspiration pneumonia, chest x-ray will be done in a.m. for follow-up on her aspiration pneumonia. Patient was also presented with COVID-19 infection, underlying COVID-19 pneumonia is not entirely ruled out. WBC count is 6.8 hemoglobin 8.4. Normal bicarb is 22 BUN is 50 creatinine is 2.80 blood sugar this morning is 204 Reevaluated today on 05/01/22, patient remains in the ICU, she is doing much better today, breathing a lot easier, she did undergo dialysis yesterday, and she had almost 2 L removed yesterday. Today the patient is doing great, her chest x-ray is showing dramatic improvement, patient is only on 2 L nasal cannula, saturating well, and she does not seem to be in any distress. She remains on IV insulin at 2 units per hour, I'm recommending that we start long- acting insulin/Levemir insulin and sliding scale coverage, and I'll arrange for the patient to be transferred out of the ICU to a monitor bed on [facility]. WBC count today is 7.4 hemoglobin is 8.2. Basic metabolic profile is normal BUN is 54 creatinine 2.81, blood sugar is ranging between 274 and 400. Patient had negative C. diff. On 05/12/2022, the patient is doing well. No specific complaints. Underwent hemodialysis yesterday. She has occasional cough. She had few episodes of epistaxis overnight, self-limiting. Blood work from today shows a potassium level of 5.7, BUN is 57 with a creatinine of 3.8. She is currently on room air oxygen with a pulse ox of 91%. Chest x-ray from yesterday show thyromegaly and some limited infiltration the left perihilar area. No cough. No sputum production. She is currently on no antibiotics. She is on Levemir insulin 8 units in addition to NovoLog 6 units with meals. She is taken Demadex 40 mg by mouth daily. She is also on clonidine 0.3 mg for blood pressure control in combination with Correctol 37.5 mg twice a day and Procardia XL 60 mg by mouth twice a day. She is on Dilaudid for pain control. On 05/18/2022, patient was transferred back to the ICU this morning, we have not seen this patient since 05/12/2022. Apparently she was never discharged home, she has been managed by many consultants and by her primary care physician as well as nephrology, patient has been receiving dialysis while inpatient, and this morning the hospitalist responded to the patient with having wide-complex tachycardia. Immediate basic metabolic profile showed that the patient had high potassium of 8.4, and she had a blood sugar of over 600. Her last blood work was done actually 3 days ago, and no labs have been ordered by the admitting physician since then. Her last potassium on 05/15 was 5.1, and her blood sugar was 325 at the time. Considering her wide-complex tachycardia and her hyperkalemia, patient received a cocktail for hyperkalemia by the hospitalist, and she was appropriately transferred to the ICU after discussing the case with me over the phone patient remained on the cocktail for hyperkalemia she had immediate hemodialysis as soon as she arrived to the ICU and she was placed on insulin drip. Patient was placed on a nonrebreather mask and later transitioned to hypotension liters high flow cannula. Chest x-ray showed evidence of interstitial edema and cardiomegaly this will likely improve post hemodialysis. Patient was seen by nephrology, and immediate hemodialysis was ordered during my evaluation, the patient was noted to be relatively asymptomatic. In addition to all of this the patient has been recovering from COVID-19 infection. Reevaluated today on 05/19/22, patient remains in the ICU, she is receiving hemodialysis again today. Potassium remains elevated, blood sugar remains elevated, her last potassium was 6.6, and her blood sugars over 500. Hence I'm recommending that the patient goes on insulin drip again, and discontinue NovoLog insulin subcu as per scale. Her blood sugar is poorly controlled.patient apparently received couple of doses of Kayexalate and IV insulin yesterday, the head up operator on the case is addressing her diet because the patient continues to have persistently elevated potassium and on her trailer was bananas and potatoes.CBC today is unremarkable hemoglobin is 8.4, Objective - Vital Signs Vital signs: Vital Signs Temp 98.5 F 05/19/22 08:00 Pulse 87 05/19/22 10:00 Resp 19 05/19/22 10:00 BP 105/61 05/19/22 10:00 Pulse Ox 97 05/19/22 10:00 FiO2 50 04/28/22 12:00 Intake & Output 05/18/22 05/19/22 05/19/22 18:59 06:59 18:59 Intake Total 1569.550 475 1.767 Output Total 4463 Balance -2893.450 475 1.767 Weight 49.5 kg 54.3 kg Intake: IV 875 375 Dextrose 5%-0.9% NaCl 1, 300 375 000 ml @ 75 mls/hr IV . [id number] [facility] Rx#:[id number] Sodium Chloride 0.9% 1, 200 000 ml @ 200 mls/hr IV . Q5H [facility] Rx#:[id number] Sodium Chloride 0.9% 1, 375 000 ml @ 75 mls/hr IV . [id number] [facility] Rx#:[id number] Intake, IV Titration 31.550 1.767 Amount Insulin Regular 100 unit 31.550 In Sodium Chloride 0.9% 100 ml @ 0.1 UNITS/KG/HR 5.03 mls/hr IV .Q20H5M [facility] Rx#:[id number] Insulin Regular 100 unit 1.767 In Sodium Chloride 0.9% 100 ml @ Titrate IV .Q0M [facility] Rx#:[id number] Oral 200 100 Hemodialysis 463 Output: Hemodialysis 4463 Other: Voiding Method Bedpan # Voids 0 0 0 # Bowel Movements 1 - Exam General: Revealed a 51-year-old female in no distress, on 2 L nasal cannula, O2 sats is 97% Head: Atraumatic, normocephalic. HEENT:[Neck is supple.] [No neck masses.] [No thyromegaly.] [No JVD.] Dry mucous membranes. Chest: Symmetrical chest expansion , diminished breath sounds at the bases no c rackles or rhonchi or wheezes Cardiac Exam: [Normal S1 and S2, no S3 gallop, 2/6 systolic murmur thought the precordium. Abdomen: [Soft, nontender, no megaly, no rebound, no guarding, normal bowel so unds.] Extremities: [No clubbing, no edema, no cyanosis.] Neurological Exam: Alert oriented 3 no focal deficit. Psychiatric: Depressed mood and flat affect, normal mental status - Labs CBC & Chem 7: 05/19/22 08:45 05/19/22 08:45 Labs: Abnormal Lab Results - Last 24 Hours (Table) 05/18/22 05/18/22 05/18/22 Range/Units 11:55 12:40 13:37 RBC (3.80-5.40) m/uL Hgb (11.4-16.0) gm/dL Hct (34.0-46.0) % RDW (11.5-15.5) % VBG pH (7.31-7.41) Sodium (137-145) mmol/L Potassium (3.5-5.1) mmol/L Chloride (98-107) mmol/L Carbon Dioxide (22-30) mmol/L BUN (7-17) mg/dL Creatinine (0.52-1.04) mg/dL Glucose (74-99) mg/dL POC Glucose (mg/dL) 56 L 36 L 62 L (70-110) mg/dL Phosphorus (2.5-4.5) mg/dL 05/18/22 05/18/22 05/18/22 Range/Units 14:01 15:06 16:31 RBC (3.80-5.40) m/uL Hgb (11.4-16.0) gm/dL Hct (34.0-46.0) % RDW (11.5-15.5) % VBG pH 7.44 H (7.31-7.41) Sodium (137-145) mmol/L Potassium (3.5-5.1) mmol/L Chloride (98-107) mmol/L Carbon Dioxide (22-30) mmol/L BUN (7-17) mg/dL Creatinine (0.52-1.04) mg/dL Glucose (74-99) mg/dL POC Glucose (mg/dL) 57 L 205 H (70-110) mg/dL Phosphorus (2.5-4.5) mg/dL 05/18/22 05/18/22 05/18/22 Range/Units 16:31 19:48 20:02 RBC (3.80-5.40) m/uL Hgb (11.4-16.0) gm/dL Hct (34.0-46.0) % RDW (11.5-15.5) % VBG pH (7.31-7.41) Sodium 134 L 128 L (137-145) mmol/L Potassium 5.4 H 6.6 H* (3.5-5.1) mmol/L Chloride 96 L (98-107) mmol/L Carbon Dioxide (22-30) mmol/L BUN 28 H 33 H (7-17) mg/dL Creatinine 2.48 H 2.78 H (0.52-1.04) mg/dL Glucose 43 L* 303 H (74-99) mg/dL POC Glucose (mg/dL) 300 H (70-110) mg/dL Phosphorus 5.1 H (2.5-4.5) mg/dL 05/18/22 05/19/22 05/19/22 Range/Units 22:15 02:09 06:51 RBC (3.80-5.40) m/uL Hgb (11.4-16.0) gm/dL Hct (34.0-46.0) % RDW (11.5-15.5) % VBG pH (7.31-7.41) Sodium (137-145) mmol/L Potassium (3.5-5.1) mmol/L Chloride (98-107) mmol/L Carbon Dioxide (22-30) mmol/L BUN (7-17) mg/dL Creatinine (0.52-1.04) mg/dL Glucose (74-99) mg/dL POC Glucose (mg/dL) 55 L 349 H >600 H (70-110) mg/dL Phosphorus (2.5-4.5) mg/dL 05/19/22 05/19/22 05/19/22 Range/Units 08:11 08:45 08:45 RBC 2.63 L (3.80-5.40) m/uL Hgb 8.4 L (11.4-16.0) gm/dL Hct 26.3 L (34.0-46.0) % RDW 16.4 H (11.5-15.5) % VBG pH (7.31-7.41) Sodium 129 L (137-145) mmol/L Potassium (3.5-5.1) mmol/L Chloride 95 L (98-107) mmol/L Carbon Dioxide 16 L (22-30) mmol/L BUN 43 H (7-17) mg/dL Creatinine 4.53 H (0.52-1.04) mg/dL Glucose 490 H (74-99) mg/dL POC Glucose (mg/dL) 590 H (70-110) mg/dL Phosphorus (2.5-4.5) mg/dL 05/19/22 Range/Units 09:27 RBC (3.80-5.40) m/uL Hgb (11.4-16.0) gm/dL Hct (34.0-46.0) % RDW (11.5-15.5) % VBG pH (7.31-7.41) Sodium (137-145) mmol/L Potassium (3.5-5.1) mmol/L Chloride (98-107) mmol/L Carbon Dioxide (22-30) mmol/L BUN (7-17) mg/dL Creatinine (0.52-1.04) mg/dL Glucose (74-99) mg/dL POC Glucose (mg/dL) 228 H (70-110) mg/dL Phosphorus (2.5-4.5) mg/dL Assessment and Plan Assessment: Impression: wide-complex tachycardia secondary to hyperkalemia, required immediate hemodialysis and hyperkalemia treatment protocol. History of cardiac arrest on her initial presentation/initial hospitalization 04/24/22 Recent COVID-19 infection/subacute however no evidence of COVID-19 pneumonia. History of aspiration pneumonia from previous cardiac arrest. Fluid overload secondary to end-stage renal disease History of CVA/TIA Type 2 diabetes. End-stage renal disease, on hemodialysis. Previous history of cardiac arrest. History of diabetic retinopathy and neuropathy History of depression Patient has been extubated since 04/27/22 Recommendation: placed patient back on insulin drip today. Her blood sugars poorly controlled. Continue to monitor in the ICU for now. continue hemodialysis as per nephrology on the case. Continue to monitor electrolytes and sugars, address accordingly. We will continue to follow Time with Patient: Less than 30
[2022-05-19] MEDS: ENOXAPARIN 30 MG/0.3 ML SYRINGE SQ SCH (12:30)
[2022-05-19] MEDS: cloNIDine HCL 0.1 MG TAB PO SCH ×3 (12:30→22:14)
[2022-05-19] MEDS: TORSEMIDE 20 MG TAB PO SCH (12:30)
[2022-05-19] MEDS: ASPIRIN 81 MG PO SCH (12:30)
[2022-05-19] MEDS: buPROPion SR 150 MG TABLET.ER PO SCH ×2 (12:30→20:43)
[2022-05-19] MEDS: DULoxetine HCL 30 MG CAPSULE.DR PO SCH ×2 (12:30→20:43)
[2022-05-19] MEDS: hydrALAZINE HCL 50 MG TAB PO SCH ×3 (12:32→22:14)
[2022-05-19 13:11] LABS: Glucose,Whole Blood 104 mg/dL (70-110)
[2022-05-19 14:00] LABS: Glucose,Whole Blood 160 mg/dL (70-110)
[2022-05-19 15:13] LABS: Glucose,Whole Blood 108 mg/dL (70-110)
[2022-05-19 16:37] LABS: Glucose,Whole Blood 121 mg/dL (70-110)
[2022-05-19 20:38] LABS: Glucose,Whole Blood 274 mg/dL (70-110)
[2022-05-19] MEDS: traZODone HCL 50 MG TAB PO PRN (22:14)
[2022-05-20] MEDS: HYDROmorphone 0.5 MG/0.5 ML SYRINGE IVP PRN ×6 (00:30→20:51)
[2022-05-20] MEDS ORDERED: FUROSEMIDE 10 MG/ML 4 ML VIAL IV STA (01:16)
[2022-05-20] MEDS: ONDANSETRON 4 MG/2 ML VIAL IVP PRN (01:41)
[2022-05-20 01:49] LABS: Glucose,Whole Blood 233 mg/dL (70-110)
--- NOTE | 2022-05-20 02:15 | PN ---
PROGRESS NOTE DATE OF SERVICE: 05/19/2022 CHIEF COMPLAINT: Renal failure, type 1 diabetes, and hypertension. HISTORY OF PRESENT ILLNESS: This lady is doing fairly well today. Blood pressures and blood sugars have been slightly improved. She still complains of chest pain and abdominal pain. PHYSICAL EXAMINATION: CHEST: Clear. CARDIAC: Exam is unchanged with sinus rhythm. ABDOMEN: Soft and nontender. IMPRESSION: 1. Stage V CKD. 2. Amblyopia. 3. Uncontrolled type 1 insulin-dependent diabetes mellitus. 4. Uncontrolled hypertension. 5. Anemia. PLAN: If she can just remain stable for another 24 hours, we can probably send her home or at least move her out of ICU. MMODL / IJN: [id number] /
--- NOTE | 2022-05-20 03:14 | PN ---
PROGRESS NOTE DATE OF SERVICE: 05/18/2022 CHIEF COMPLAINT: Renal failure. HISTORY OF PRESENT ILLNESS: This lady has been fairly stable so far since her arrest. She is awake, alert and neurologically intact. Blood sugars and blood pressures have been doing better since she is in ICU. PHYSICAL EXAMINATION: CHEST: Clear. CARDIAC: Demonstrates her sinus rhythm. ABDOMEN: Soft. IMPRESSION: 1. Status post cardiac arrest due to hyperkalemia. 2. Uncontrolled hypertension. 3. Uncontrolled type 1 insulin-dependent diabetes mellitus. 4. Stage 5 chronic kidney disease, on dialysis. PLAN: Continue with current program without change and she can try go to a regular floor. MMODL / IJN: [id number] /
[2022-05-20] MEDS: carvediloL 12.5 MG TAB PO SCH ×2 (05:32→18:05)
[2022-05-20 06:24] LABS: Glucose,Whole Blood 559 mg/dL (70-110)
[2022-05-20 06:24] LABS: Glucose,Whole Blood 569 mg/dL (70-110)
[2022-05-20] MEDS: PANTOPRAZOLE 40 MG TABLET PO SCH (06:36)
[2022-05-20] MEDS: INSULIN ASPART (NovoLOG) 100 UNIT/ML VIAL SQ SCH ×4 (06:36→20:18)
[2022-05-20] MEDS: INSULIN DETEMIR (LEVEMIR) 100 UNIT/ML SYR SQ SCH (06:50)
[2022-05-20] MEDS: diphenhydrAMINE 50 MG/ML 1 ML VIAL IVP PRN ×3 (08:20→20:51)
[2022-05-20] MEDS: ENOXAPARIN 30 MG/0.3 ML SYRINGE SQ SCH (08:21)
[2022-05-20] MEDS: CALCIUM ACETATE 667 MG TAB PO SCH ×3 (08:21→18:05)
[2022-05-20 10:04] LABS: Glucose,Whole Blood 129 mg/dL (70-110)
[2022-05-20] MEDS: TORSEMIDE 20 MG TAB PO SCH (10:38)
[2022-05-20] MEDS: DULoxetine HCL 30 MG CAPSULE.DR PO SCH ×2 (10:38→20:51)
[2022-05-20] MEDS: hydrALAZINE HCL 50 MG TAB PO SCH ×3 (10:39→20:51)
[2022-05-20] MEDS: buPROPion SR 150 MG TABLET.ER PO SCH ×2 (10:39→20:52)
[2022-05-20] MEDS: cloNIDine HCL 0.1 MG TAB PO SCH ×3 (10:39→20:50)
[2022-05-20] MEDS: ASPIRIN 81 MG PO SCH (10:39)
[2022-05-20 12:14] LABS: Glucose,Whole Blood 28 mg/dL (70-110)
--- NOTE | 2022-05-20 12:35 | P.PN ---
Subjective Progress Note Date: 05/20/22 Principal diagnosis: Abnormal EKG with wide-complex tachycardia This is a 31-year-old female with history of chronic kidney disease/renal failure on hemodialysis. History of previous CVA and previous cardiac arrest, patient presented to the ER on 04/24/22 presented mostly with 1 week history of cough, shortness of breath, and chest pain upon coughing. Pain was described by the ER physician as sharp, no radiation, pain was not associated with diaphoresis, no nausea no vomiting no abdominal pain. Patient had her last hemodialysis 2 days prior. Chest x-ray upon her initial evaluation showed evidence of pulmonary vascular congestion consistent with pulmonary edema/fluid overload, patient tested positive for COVID-19 infection, patient had low pulse oximetry on her initial presentation 85% on room air, and went up to 93% on 2 L. Patient was admitted, and she was seen by nephrology on consultation on 04/25 and she was also seen by her admitting physician on 04/26. On 04/26, at around 1800 p.m., CARLA EDWARD was called overhead. Sound physician responded to the code , patient was being resuscitated upon his arrival. Patient was in asystole and she received a total of 4 epinephrines, 2 bicarb, 1 calcium given patient was intubated however she was noted to have emesis during intubation, and she may have had visible aspiration. Cold lasted about 7 minutes, patient was sent to the ICU on mechanical ventilation. Her potassium was above 8, nephrology was notified, and the patient received treatment for heart high potassium and she received immediate hemodialysis while in the ICU. I was notified about this patient shortly after she arrived to the ICU, and I recommended ventilatory support, adjusted her ventilator settings she initially required high FiO2 and high PEEP. She required more sedation utilizing propofol and Versed because she was still agitated and restless with propofol alone at maximal dose. Recommended Zosyn empirically for presumptive aspiration pneumonia recommended GI and DVT prophylaxis, immediate hemodialysis by nephrology, and reviewed her ABG, and her vent settings were adjusted accordingly. Patient is now in the ICU on mechanical ventilation, she is on assist control rate of 28th of volume 400 FiO2 40% and PEEP of 12. ABG showed a pO2 of 143 pCO2 41 pH of 7.38. And I recommended cutting down the PEEP down to 5, and kept her on 40% FiO2. Patient will be receiving more hemodialysis today. Hemoglobin is down to 6.4 and she'll be receiving 1 unit of packed RBCs. She will also receive hemodialysis again today. She had a temp of 103, cultures are pending and I'm recommending Zosyn for now for presumptive aspiration pneumonia. Patient is on Versed at 7 mg per hour, propofol at 75 mcg/kg/m, her IV fluids at KVO, she is also on insulin drip. This morning labs showed hemoglobin of 6.4. Normal electrolytes, bicarb is normal, BUN is 32 creatinine 3.47. As mentioned earlier patient had positive PCR for COVID-19 infection Reevaluated today on 04/28/22, patient was extubated yesterday, and she was placed initially on nasal cannula, however at night she was transitioned to BiPAP. Presently on BiPAP 12/5/100%, and I cut down her FiO2 to 50%. Patient is undergoing hemodialysis. Patient is also on insulin drip. Patient is tolerating BiPAP quite well, she is arousable, follows simple instructions, does not seem to be in distress. Her IV fluids at KVO. Chest x-ray showed evidence of pulmonary edema. Underlying pneumonia is not entirely ruled out, considering the patient did have witnessed aspiration. However her chest x-ray will likely improve post dialysis. WBC count today is 8.8 hemoglobin is 7.2. Electrolytes are normal BUN is 30 creatinine 2.97 Reevaluated today on 04/29/22, patient remains in the ICU, remains on 3 L nasal cannula with O2 sat she is 100%, she is receiving hemodialysis this morning, she had 4 L of fluid removed on 04/28. Remains empirically on Zosyn for presumptive aspiration pneumonia she is now on insulin at 5.42 units per hour to control her blood sugars. Otherwise the patient is doing well, relatively asymptomatic. Hemoglobin is 7.6 WBC count is 8.4, basic metabolic profile is normal bicarb is 24 lites are normal Reevaluated today on 05/27/22, patient is doing well today, she is on 3 L nasal cannula, intermittently on BiPAP 12/5/50%, patient is sitting in bed, eating her breakfast, she had uneventful hemodialysis yesterday, and 2 L of fluids were removed. Her sugar is all over the place, it is fluctuating up and down, and that is to be addressed by the admitting physician. She is on Zosyn empirically for aspiration pneumonia, chest x-ray will be done in a.m. for follow-up on her aspiration pneumonia. Patient was also presented with COVID-19 infection, underlying COVID-19 pneumonia is not entirely ruled out. WBC count is 6.8 hemoglobin 8.4. Normal bicarb is 22 BUN is 50 creatinine is 2.80 blood sugar this morning is 204 Reevaluated today on 05/01/22, patient remains in the ICU, she is doing much better today, breathing a lot easier, she did undergo dialysis yesterday, and she had almost 2 L removed yesterday. Today the patient is doing great, her chest x-ray is showing dramatic improvement, patient is only on 2 L nasal cannula, saturating well, and she does not seem to be in any distress. She remains on IV insulin at 2 units per hour, I'm recommending that we start long- acting insulin/Levemir insulin and sliding scale coverage, and I'll arrange for the patient to be transferred out of the ICU to a monitor bed on [facility]. WBC count today is 7.4 hemoglobin is 8.2. Basic metabolic profile is normal BUN is 54 creatinine 2.81, blood sugar is ranging between 274 and 400. Patient had negative C. diff. On 05/12/2022, the patient is doing well. No specific complaints. Underwent hemodialysis yesterday. She has occasional cough. She had few episodes of epistaxis overnight, self-limiting. Blood work from today shows a potassium level of 5.7, BUN is 57 with a creatinine of 3.8. She is currently on room air oxygen with a pulse ox of 91%. Chest x-ray from yesterday show thyromegaly and some limited infiltration the left perihilar area. No cough. No sputum production. She is currently on no antibiotics. She is on Levemir insulin 8 units in addition to NovoLog 6 units with meals. She is taken Demadex 40 mg by mouth daily. She is also on clonidine 0.3 mg for blood pressure control in combination with Correctol 37.5 mg twice a day and Procardia XL 60 mg by mouth twice a day. She is on Dilaudid for pain control. On 05/18/2022, patient was transferred back to the ICU this morning, we have not seen this patient since 05/12/2022. Apparently she was never discharged home, she has been managed by many consultants and by her primary care physician as well as nephrology, patient has been receiving dialysis while inpatient, and this morning the hospitalist responded to the patient with having wide-complex tachycardia. Immediate basic metabolic profile showed that the patient had high potassium of 8.4, and she had a blood sugar of over 600. Her last blood work was done actually 3 days ago, and no labs have been ordered by the admitting physician since then. Her last potassium on 05/15 was 5.1, and her blood sugar was 325 at the time. Considering her wide-complex tachycardia and her hyperkalemia, patient received a cocktail for hyperkalemia by the hospitalist, and she was appropriately transferred to the ICU after discussing the case with me over the phone patient remained on the cocktail for hyperkalemia she had immediate hemodialysis as soon as she arrived to the ICU and she was placed on insulin drip. Patient was placed on a nonrebreather mask and later transitioned to hypotension liters high flow cannula. Chest x-ray showed evidence of interstitial edema and cardiomegaly this will likely improve post hemodialysis. Patient was seen by nephrology, and immediate hemodialysis was ordered during my evaluation, the patient was noted to be relatively asymptomatic. In addition to all of this the patient has been recovering from COVID-19 infection. Reevaluated today on 05/19/22, patient remains in the ICU, she is receiving hemodialysis again today. Potassium remains elevated, blood sugar remains elevated, her last potassium was 6.6, and her blood sugars over 500. Hence I'm recommending that the patient goes on insulin drip again, and discontinue NovoLog insulin subcu as per scale. Her blood sugar is poorly controlled.patient apparently received couple of doses of Kayexalate and IV insulin yesterday, the machine setter on the case is addressing her diet because the patient continues to have persistently elevated potassium and on her trailer was bananas and potatoes.CBC today is unremarkable hemoglobin is 8.4, Reevaluated today on 05/20/22, patient was examined and evaluated in the ICU, she seems to be doing better, gradually improving, her blood sugars are better controlled. Patient is on Accu-Cheks and subcu insulin. She is also on Levemir insulin. Not in any distress. She is on room air. At times she is on 2 L nasal cannula with O2 saturation ranging between 94 up to 98%. WBC count is 7 hemoglobin is 12.1 PTT is 45.8, blood sugar this morning is 121 Objective - Vital Signs Vital signs: Vital Signs Temp 98.3 F 05/20/22 12:00 Pulse 81 05/20/22 12:00 Resp 22 05/20/22 12:00 BP 118/74 05/20/22 12:00 Pulse Ox 98 05/20/22 12:00 FiO2 50 04/28/22 12:00 Intake & Output 05/19/22 05/20/22 05/20/22 18:59 06:59 18:59 Intake Total 301.767 Output Total 3300 Balance -2998.233 Weight 54.3 kg 48 kg Intake: Intake, IV Titration 1.767 Amount Insulin Regular 100 unit 1.767 In Sodium Chloride 0.9% 100 ml @ Titrate IV .Q0M [facility] Rx#:[id number] Hemodialysis 300 Output: Hemodialysis 3300 Other: # Voids 0 0 # Bowel Movements 1 - Exam General: Revealed a 51-year-old female in no distress Head: Atraumatic, normocephalic. HEENT:[Neck is supple.] [No neck masses.] [No thyromegaly.] [No JVD.] Dry mucous membranes. Chest: Symmetrical chest expansion , diminished breath sounds at the bases no crackles or rhonchi or wheezes Cardiac Exam: [Normal S1 and S2, no S3 gallop, 2/6 systolic murmur thought the precordium. Abdomen: [Soft, nontender, no megaly, no rebound, no guarding, normal bowel sounds.] Extremities: [No clubbing, no edema, no cyanosis.] Neurological Exam: Alert oriented 3 no focal deficit. Psychiatric: Depressed mood and flat affect, normal mental status - Labs CBC & Chem 7: 05/19/22 08:45 05/19/22 08:45 Labs: Abnormal Lab Results - Last 24 Hours (Table) 05/19/22 05/19/22 05/19/22 Range/Units 13:58 16:36 20:37 POC Glucose (mg/dL) 160 H 121 H 274 H (70-110) mg/dL 05/20/22 05/20/22 05/20/22 Range/Units 01:47 06:21 06:23 POC Glucose (mg/dL) 233 H 559 H 569 H (70-110) mg/dL 05/20/22 05/20/22 Range/Units 10:02 12:12 POC Glucose (mg/dL) 129 H 28 L (70-110) mg/dL Assessment and Plan Assessment: Impression: wide-complex tachycardia secondary to hyperkalemia, required immediate hemodialysis and hyperkalemia treatment protocol. History of cardiac arrest on her initial presentation/initial hospitalization 04/24/22 Recent COVID-19 infection/subacute however no evidence of COVID-19 pneumonia. History of aspiration pneumonia from previous cardiac arrest. Fluid overload secondary to end-stage renal disease History of CVA/TIA Type 2 diabetes. End-stage renal disease, on hemodialysis. Previous history of cardiac arrest. History of diabetic retinopathy and neuropathy History of depression Patient has been extubated since 04/27/22 Recommendation: We will plan to transfer the patient back to cardiac floor/monitor bed today. Continue intermittent hemodialysis as per nephrology most likely will be every other day now. Continue to monitor sugars and address accordingly Will continue to follow. Time with Patient: Less than 30
--- NOTE | 2022-05-20 15:00 | P.PN ---
Subjective Progress Note Date: 05/20/22 Follow-up for ESRD, starting dialysis. She was admitted with hyperkalemia from hyperglycemia needing insulin drip. Multiple sessions of dialysis while in the hospital. No new labs today. Objective - Vital Signs Vital signs: Vital Signs Temp 98.3 F 05/20/22 12:00 Pulse 81 05/20/22 12:00 Resp 22 05/20/22 12:00 BP 118/74 05/20/22 12:00 Pulse Ox 98 05/20/22 12:00 FiO2 50 04/28/22 12:00 Intake & Output 05/19/22 05/20/22 05/20/22 18:59 06:59 18:59 Intake Total 301.767 Output Total 3300 Balance -2998.233 Weight 54.3 kg 48 kg Intake: Intake, IV Titration 1.767 Amount Insulin Regular 100 unit 1.767 In Sodium Chloride 0.9% 100 ml @ Titrate IV .Q0M [facility] Rx#:[id number] Hemodialysis 300 Output: Hemodialysis 3300 Other: # Voids 0 0 # Bowel Movements 1 - Exam No acute distress S1-S2 heard Decreased breath sounds Abdomen distended No edema - Labs CBC & Chem 7: 05/19/22 08:45 05/19/22 08:45 Labs: Abnormal Lab Results - Last 24 Hours (Table) 05/19/22 05/19/22 05/20/22 Range/Units 16:36 20:37 01:47 POC Glucose (mg/dL) 121 H 274 H 233 H (70-110) mg/dL 05/20/22 05/20/22 05/20/22 Range/Units 06:21 06:23 10:02 POC Glucose (mg/dL) 559 H 569 H 129 H (70-110) mg/dL 05/20/22 Range/Units 12:12 POC Glucose (mg/dL) 28 L (70-110) mg/dL Assessment and Plan Assessment: #1 ESRD on hemodialysis MWF schedule. #2 hypervolemia improved with dialysis #3 COVID-19 PCR positive. #4 hyperkalemia secondary to hyperglycemia/DKA Plan: #1 hemodialysis today with 3.5 L of UF. #2 check labs in the morning #3 stable from nephrology for discharge to be followed up in the outpatient dialysis clinic
[2022-05-20 15:21] LABS: Anisocytosis Slight; Basophils # (A) 0.1 k/uL (0-0.2); Basophils % (A) 1 %; Eosinophils # (A) 0.5 k/uL (0-0.7); Eosinophils % (A) 7 %; HCT 25.2 % (34.0-46.0); HGB 8.5 gm/dL (11.4-16.0); Hypochromasia Slight; Lymphocytes # (A) 0.8 k/uL (1.0-4.8); Lymphocytes % (A) 11 %; MCH 32.2 pg (25.0-35.0); MCHC 33.8 g/dL (31.0-37.0); MCV 95.4 fL (80.0-100.0); Mean Platelet Volume 8.9; Monocytes # (A) 0.3 k/uL (0-1.0); Monocytes % (A) 5 %; Neutrophils % (A) 74 %; Platelet Count 304 k/uL (150-450); RBC 2.65 m/uL (3.80-5.40); RDW 16.4 % (11.5-15.5); WBC 6.8 k/uL (3.8-10.6)
[2022-05-20 15:33] LABS: Calcium 8.3 mg/dL (8.4-10.2); Potassium 5.5 mmol/L (3.5-5.1)
[2022-05-20] MEDS: LORazepam 1 MG TAB PO PRN (15:44)
[2022-05-20 17:15] LABS: Glucose,Whole Blood 161 mg/dL (70-110)
[2022-05-20 19:57] LABS: Glucose,Whole Blood 81 mg/dL (70-110)
[2022-05-20] MEDS: traZODone HCL 50 MG TAB PO PRN (20:53)
[2022-05-21 01:54] LABS: Glucose,Whole Blood 541 mg/dL (70-110)
[2022-05-21] MEDS: HYDROmorphone 0.5 MG/0.5 ML SYRINGE IVP PRN ×3 (02:00→13:27)
[2022-05-21 04:12] LABS: Glucose,Whole Blood >600 mg/dL (70-110)
[2022-05-21 05:02] LABS: Glucose,Whole Blood >600 mg/dL (70-110)
[2022-05-21 05:58] LABS: Calcium 8.4 mg/dL (8.4-10.2)
[2022-05-21 06:24] LABS: Potassium 6.9 mmol/L (3.5-5.1)
[2022-05-21] MEDS: CALCIUM ACETATE 667 MG TAB PO SCH ×2 (06:29→13:27)
[2022-05-21] MEDS: PANTOPRAZOLE 40 MG TABLET PO SCH (06:29)
[2022-05-21] MEDS: INSULIN ASPART (NovoLOG) 100 UNIT/ML VIAL SQ SCH ×2 (06:30→13:16)
[2022-05-21] MEDS: carvediloL 12.5 MG TAB PO SCH (06:30)
[2022-05-21 07:29] LABS: Glucose,Whole Blood >600 mg/dL (70-110)
[2022-05-21] MEDS: hydrALAZINE HCL 50 MG TAB PO SCH ×2 (08:06→15:02)
[2022-05-21] MEDS: DULoxetine HCL 30 MG CAPSULE.DR PO SCH (08:06)
[2022-05-21] MEDS: ENOXAPARIN 30 MG/0.3 ML SYRINGE SQ SCH (08:06)
[2022-05-21] MEDS: TORSEMIDE 20 MG TAB PO SCH (08:06)
[2022-05-21] MEDS: cloNIDine HCL 0.1 MG TAB PO SCH ×2 (08:06→13:26)
[2022-05-21] MEDS: buPROPion SR 150 MG TABLET.ER PO SCH (08:07)
[2022-05-21] MEDS: ASPIRIN 81 MG PO SCH (08:07)
[2022-05-21] MEDS: diphenhydrAMINE 50 MG/ML 1 ML VIAL IVP PRN (09:01)
[2022-05-21] MEDS: LORazepam 1 MG TAB PO PRN (09:02)
[2022-05-21 09:24] LABS: Glucose,Whole Blood 451 mg/dL (70-110)
[2022-05-21] MEDS: INSULIN DETEMIR (LEVEMIR) 100 UNIT/ML SYR SQ SCH (10:22)
[2022-05-21 11:57] LABS: Glucose,Whole Blood 112 mg/dL (70-110)
--- NOTE | 2022-05-21 12:45 | P.PN ---
Subjective Progress Note Date: 05/21/22 Principal diagnosis: Abnormal EKG with wide-complex tachycardia This is a 31-year-old female with history of chronic kidney disease/renal failure on hemodialysis. History of previous CVA and previous cardiac arrest, patient presented to the ER on 04/24/22 presented mostly with 1 week history of cough, shortness of breath, and chest pain upon coughing. Pain was described by the ER physician as sharp, no radiation, pain was not associated with diaphoresis, no nausea no vomiting no abdominal pain. Patient had her last hemodialysis 2 days prior. Chest x-ray upon her initial evaluation showed evidence of pulmonary vascular congestion consistent with pulmonary edema/fluid overload, patient tested positive for COVID-19 infection, patient had low pulse oximetry on her initial presentation 85% on room air, and went up to 93% on 2 L. Patient was admitted, and she was seen by nephrology on consultation on 04/25 and she was also seen by her admitting physician on 04/26. On 04/26, at around 1800 p.m., CARLA EDWARD was called overhead. Sound physician responded to the code , patient was being resuscitated upon his arrival. Patient was in asystole and she received a total of 4 epinephrines, 2 bicarb, 1 calcium given patient was intubated however she was noted to have emesis during intubation, and she may have had visible aspiration. Cold lasted about 7 minutes, patient was sent to the ICU on mechanical ventilation. Her potassium was above 8, nephrology was notified, and the patient received treatment for heart high potassium and she received immediate hemodialysis while in the ICU. I was notified about this patient shortly after she arrived to the ICU, and I recommended ventilatory support, adjusted her ventilator settings she initially required high FiO2 and high PEEP. She required more sedation utilizing propofol and Versed because she was still agitated and restless with propofol alone at maximal dose. Recommended Zosyn empirically for presumptive aspiration pneumonia recommended GI and DVT prophylaxis, immediate hemodialysis by nephrology, and reviewed her ABG, and her vent settings were adjusted accordingly. Patient is now in the ICU on mechanical ventilation, she is on assist control rate of 28th of volume 400 FiO2 40% and PEEP of 12. ABG showed a pO2 of 143 pCO2 41 pH of 7.38. And I recommended cutting down the PEEP down to 5, and kept her on 40% FiO2. Patient will be receiving more hemodialysis today. Hemoglobin is down to 6.4 and she'll be receiving 1 unit of packed RBCs. She will also receive hemodialysis again today. She had a temp of 103, cultures are pending and I'm recommending Zosyn for now for presumptive aspiration pneumonia. Patient is on Versed at 7 mg per hour, propofol at 75 mcg/kg/m, her IV fluids at KVO, she is also on insulin drip. This morning labs showed hemoglobin of 6.4. Normal electrolytes, bicarb is normal, BUN is 32 creatinine 3.47. As mentioned earlier patient had positive PCR for COVID-19 infection Reevaluated today on 04/28/22, patient was extubated yesterday, and she was placed initially on nasal cannula, however at night she was transitioned to BiPAP. Presently on BiPAP 12/5/100%, and I cut down her FiO2 to 50%. Patient is undergoing hemodialysis. Patient is also on insulin drip. Patient is tolerating BiPAP quite well, she is arousable, follows simple instructions, does not seem to be in distress. Her IV fluids at KVO. Chest x-ray showed evidence of pulmonary edema. Underlying pneumonia is not entirely ruled out, considering the patient did have witnessed aspiration. However her chest x-ray will likely improve post dialysis. WBC count today is 8.8 hemoglobin is 7.2. Electrolytes are normal BUN is 30 creatinine 2.97 Reevaluated today on 04/29/22, patient remains in the ICU, remains on 3 L nasal cannula with O2 sat she is 100%, she is receiving hemodialysis this morning, she had 4 L of fluid removed on 04/28. Remains empirically on Zosyn for presumptive aspiration pneumonia she is now on insulin at 5.42 units per hour to control her blood sugars. Otherwise the patient is doing well, relatively asymptomatic. Hemoglobin is 7.6 WBC count is 8.4, basic metabolic profile is normal bicarb is 24 lites are normal Reevaluated today on 05/27/22, patient is doing well today, she is on 3 L nasal cannula, intermittently on BiPAP 12/5/50%, patient is sitting in bed, eating her breakfast, she had uneventful hemodialysis yesterday, and 2 L of fluids were removed. Her sugar is all over the place, it is fluctuating up and down, and that is to be addressed by the admitting physician. She is on Zosyn empirically for aspiration pneumonia, chest x-ray will be done in a.m. for follow-up on her aspiration pneumonia. Patient was also presented with COVID-19 infection, underlying COVID-19 pneumonia is not entirely ruled out. WBC count is 6.8 hemoglobin 8.4. Normal bicarb is 22 BUN is 50 creatinine is 2.80 blood sugar this morning is 204 Reevaluated today on 05/01/22, patient remains in the ICU, she is doing much better today, breathing a lot easier, she did undergo dialysis yesterday, and she had almost 2 L removed yesterday. Today the patient is doing great, her chest x-ray is showing dramatic improvement, patient is only on 2 L nasal cannula, saturating well, and she does not seem to be in any distress. She remains on IV insulin at 2 units per hour, I'm recommending that we start long- acting insulin/Levemir insulin and sliding scale coverage, and I'll arrange for the patient to be transferred out of the ICU to a monitor bed on [facility]. WBC count today is 7.4 hemoglobin is 8.2. Basic metabolic profile is normal BUN is 54 creatinine 2.81, blood sugar is ranging between 274 and 400. Patient had negative C. diff. On 05/12/2022, the patient is doing well. No specific complaints. Underwent hemodialysis yesterday. She has occasional cough. She had few episodes of epistaxis overnight, self-limiting. Blood work from today shows a potassium level of 5.7, BUN is 57 with a creatinine of 3.8. She is currently on room air oxygen with a pulse ox of 91%. Chest x-ray from yesterday show thyromegaly and some limited infiltration the left perihilar area. No cough. No sputum production. She is currently on no antibiotics. She is on Levemir insulin 8 units in addition to NovoLog 6 units with meals. She is taken Demadex 40 mg by mouth daily. She is also on clonidine 0.3 mg for blood pressure control in combination with Correctol 37.5 mg twice a day and Procardia XL 60 mg by mouth twice a day. She is on Dilaudid for pain control. On 05/18/2022, patient was transferred back to the ICU this morning, we have not seen this patient since 05/12/2022. Apparently she was never discharged home, she has been managed by many consultants and by her primary care physician as well as nephrology, patient has been receiving dialysis while inpatient, and this morning the hospitalist responded to the patient with having wide-complex tachycardia. Immediate basic metabolic profile showed that the patient had high potassium of 8.4, and she had a blood sugar of over 600. Her last blood work was done actually 3 days ago, and no labs have been ordered by the admitting physician since then. Her last potassium on 05/15 was 5.1, and her blood sugar was 325 at the time. Considering her wide-complex tachycardia and her hyperkalemia, patient received a cocktail for hyperkalemia by the hospitalist, and she was appropriately transferred to the ICU after discussing the case with me over the phone patient remained on the cocktail for hyperkalemia she had immediate hemodialysis as soon as she arrived to the ICU and she was placed on insulin drip. Patient was placed on a nonrebreather mask and later transitioned to hypotension liters high flow cannula. Chest x-ray showed evidence of interstitial edema and cardiomegaly this will likely improve post hemodialysis. Patient was seen by nephrology, and immediate hemodialysis was ordered during my evaluation, the patient was noted to be relatively asymptomatic. In addition to all of this the patient has been recovering from COVID-19 infection. Reevaluated today on 05/19/22, patient remains in the ICU, she is receiving hemodialysis again today. Potassium remains elevated, blood sugar remains elevated, her last potassium was 6.6, and her blood sugars over 500. Hence I'm recommending that the patient goes on insulin drip again, and discontinue NovoLog insulin subcu as per scale. Her blood sugar is poorly controlled.patient apparently received couple of doses of Kayexalate and IV insulin yesterday, the hand leather trimmer on the case is addressing her diet because the patient continues to have persistently elevated potassium and on her trailer was bananas and potatoes.CBC today is unremarkable hemoglobin is 8.4, Reevaluated today on 05/20/22, patient was examined and evaluated in the ICU, she seems to be doing better, gradually improving, her blood sugars are better controlled. Patient is on Accu-Cheks and subcu insulin. She is also on Levemir insulin. Not in any distress. She is on room air. At times she is on 2 L nasal cannula with O2 saturation ranging between 94 up to 98%. WBC count is 7 hemoglobin is 12.1 PTT is 45.8, blood sugar this morning is 121 Patient was reevaluated today on 05/17/22, doing well from the pulmonary perspective, she was transferred out of the ICU yesterday, continues to have issues with her hyperkalemia and she is now receiving hemodialysis her sugars are very labile, and that being addressed by her primary care physician. Considering the patient has no active pulmonary issues at this point, I will sign off and see the patient on when necessary basis. Objective - Vital Signs Vital signs: Vital Signs Temp 98.0 F 05/21/22 07:36 Pulse 96 05/21/22 07:36 Resp 16 05/21/22 07:36 BP 150/72 05/21/22 07:36 Pulse Ox 96 05/21/22 08:08 FiO2 50 04/28/22 12:00 Intake & Output 05/20/22 05/21/22 05/21/22 18:59 06:59 18:59 Intake Total 640 970 280 Output Total 3400 Balance -2760 970 280 Weight 51 kg Intake: IV 10 Invasive Line 1 10 Oral 240 970 270 Hemodialysis 400 Output: Stool 0 Hemodialysis 3400 Other: Voiding Method Toilet Toilet Toilet # Voids 0 1 - Exam General: Revealed a 51-year-old female in no distress Head: Atraumatic, normocephalic. HEENT:[Neck is supple.] [No neck masses.] [No thyromegaly.] [No JVD.] Dry mucous membranes. Chest: Symmetrical chest expansion , diminished breath sounds at the bases no crackles or rhonchi or wheezes Cardiac Exam: [Normal S1 and S2, no S3 gallop, 2/6 systolic murmur thought the precordium. Abdomen: [Soft, nontender, no megaly, no rebound, no guarding, normal bowel sounds.] Extremities: [No clubbing, no edema, no cyanosis.] Neurological Exam: Alert oriented 3 no focal deficit. Psychiatric: Depressed mood and flat affect, normal mental status - Labs CBC & Chem 7: 05/20/22 15:00 05/21/22 05:28 Labs: Abnormal Lab Results - Last 24 Hours (Table) 05/20/22 05/20/22 05/20/22 Range/Units 15:00 15:00 17:14 RBC 2.65 L (3.80-5.40) m/uL Hgb 8.5 L (11.4-16.0) gm/dL Hct 25.2 L (34.0-46.0) % RDW 16.4 H (11.5-15.5) % Lymphocytes # 0.8 L (1.0-4.8) k/uL Sodium 135 L (137-145) mmol/L Potassium 5.5 H (3.5-5.1) mmol/L Chloride 97 L (98-107) mmol/L Carbon Dioxide (22-30) mmol/L BUN 45 H (7-17) mg/dL Creatinine 4.64 H (0.52-1.04) mg/dL Glucose 104 H (74-99) mg/dL POC Glucose (mg/dL) 161 H (70-110) mg/dL Calcium 8.3 L (8.4-10.2) mg/dL 05/21/22 05/21/22 05/21/22 Range/Units 01:53 04:09 05:00 RBC (3.80-5.40) m/uL Hgb (11.4-16.0) gm/dL Hct (34.0-46.0) % RDW (11.5-15.5) % Lymphocytes # (1.0-4.8) k/uL Sodium (137-145) mmol/L Potassium (3.5-5.1) mmol/L Chloride (98-107) mmol/L Carbon Dioxide (22-30) mmol/L BUN (7-17) mg/dL Creatinine (0.52-1.04) mg/dL Glucose (74-99) mg/dL POC Glucose (mg/dL) 541 H >600 H >600 H (70-110) mg/dL Calcium (8.4-10.2) mg/dL 05/21/22 05/21/22 05/21/22 Range/Units 05:28 07:27 09:23 RBC (3.80-5.40) m/uL Hgb (11.4-16.0) gm/dL Hct (34.0-46.0) % RDW (11.5-15.5) % Lymphocytes # (1.0-4.8) k/uL Sodium 125 L (137-145) mmol/L Potassium 6.9 H* (3.5-5.1) mmol/L Chloride 91 L (98-107) mmol/L Carbon Dioxide 16 L (22-30) mmol/L BUN 34 H (7-17) mg/dL Creatinine 3.33 H (0.52-1.04) mg/dL Glucose 922 H* (74-99) mg/dL POC Glucose (mg/dL) >600 H 451 H (70-110) mg/dL Calcium (8.4-10.2) mg/dL 05/21/22 Range/Units 11:48 RBC (3.80-5.40) m/uL Hgb (11.4-16.0) gm/dL Hct (34.0-46.0) % RDW (11.5-15.5) % Lymphocytes # (1.0-4.8) k/uL Sodium (137-145) mmol/L Potassium (3.5-5.1) mmol/L Chloride (98-107) mmol/L Carbon Dioxide (22-30) mmol/L BUN (7-17) mg/dL Creatinine (0.52-1.04) mg/dL Glucose (74-99) mg/dL POC Glucose (mg/dL) 112 H (70-110) mg/dL Calcium (8.4-10.2) mg/dL Assessment and Plan Assessment: Impression: wide-complex tachycardia secondary to hyperkalemia, required immediate hemodialysis and hyperkalemia treatment protocol. History of cardiac arrest on her initial presentation/initial hospitalization 04/24/22 Recent COVID-19 infection/subacute however no evidence of COVID-19 pneumonia. History of aspiration pneumonia from previous cardiac arrest. Fluid overload secondary to end-stage renal disease History of CVA/TIA Type 2 diabetes. End-stage renal disease, on hemodialysis. Previous history of cardiac arrest. History of diabetic retinopathy and neuropathy History of depression Patient has been extubated since 04/27/22 Recommendation: continue treatment plan as per the admitting physician Continue treatment plan as per nephrology on the case. We will sign off and see only as needed Time with Patient: Less than 30
[2022-05-21 13:18] LABS: Glucose,Whole Blood 90 mg/dL (70-110)
[2022-05-21] MEDS: DARBEPOETIN ALFA 60 MCG/0.3 ML SYRINGE SQ SCH (13:27)
--- NOTE | 2022-05-21 14:09 | P.PN ---
Subjective Progress Note Date: 05/21/22 Follow-up for ESRD. She was admitted with hyperkalemia from hyperglycemia needing insulin drip. Multiple sessions of dialysis while in the hospital. Objective - Vital Signs Vital signs: Vital Signs Temp 98.0 F 05/21/22 13:18 Pulse 85 05/21/22 13:18 Resp 16 05/21/22 13:56 BP 125/70 05/21/22 13:18 Pulse Ox 96 05/21/22 13:56 FiO2 50 04/28/22 12:00 Intake & Output 05/20/22 05/21/22 05/21/22 18:59 06:59 18:59 Intake Total 640 970 516 Output Total 3400 Balance -2760 970 516 Weight 51 kg Intake: IV 10 Invasive Line 1 10 Oral 240 970 506 Hemodialysis 400 Output: Stool 0 Hemodialysis 3400 Other: Voiding Method Toilet Toilet Toilet # Voids 0 1 - Exam No acute distress S1-S2 heard Decreased breath sounds Abdomen distended No edema right forearm aVF - Labs CBC & Chem 7: 05/20/22 15:00 05/21/22 05:28 Labs: Abnormal Lab Results - Last 24 Hours (Table) 05/20/22 05/20/22 05/20/22 Range/Units 15:00 15:00 17:14 RBC 2.65 L (3.80-5.40) m/uL Hgb 8.5 L (11.4-16.0) gm/dL Hct 25.2 L (34.0-46.0) % RDW 16.4 H (11.5-15.5) % Lymphocytes # 0.8 L (1.0-4.8) k/uL Sodium 135 L (137-145) mmol/L Potassium 5.5 H (3.5-5.1) mmol/L Chloride 97 L (98-107) mmol/L Carbon Dioxide (22-30) mmol/L BUN 45 H (7-17) mg/dL Creatinine 4.64 H (0.52-1.04) mg/dL Glucose 104 H (74-99) mg/dL POC Glucose (mg/dL) 161 H (70-110) mg/dL Calcium 8.3 L (8.4-10.2) mg/dL 05/21/22 05/21/22 05/21/22 Range/Units 01:53 04:09 05:00 RBC (3.80-5.40) m/uL Hgb (11.4-16.0) gm/dL Hct (34.0-46.0) % RDW (11.5-15.5) % Lymphocytes # (1.0-4.8) k/uL Sodium (137-145) mmol/L Potassium (3.5-5.1) mmol/L Chloride (98-107) mmol/L Carbon Dioxide (22-30) mmol/L BUN (7-17) mg/dL Creatinine (0.52-1.04) mg/dL Glucose (74-99) mg/dL POC Glucose (mg/dL) 541 H >600 H >600 H (70-110) mg/dL Calcium (8.4-10.2) mg/dL 05/21/22 05/21/22 05/21/22 Range/Units 05:28 07:27 09:23 RBC (3.80-5.40) m/uL Hgb (11.4-16.0) gm/dL Hct (34.0-46.0) % RDW (11.5-15.5) % Lymphocytes # (1.0-4.8) k/uL Sodium 125 L (137-145) mmol/L Potassium 6.9 H* (3.5-5.1) mmol/L Chloride 91 L (98-107) mmol/L Carbon Dioxide 16 L (22-30) mmol/L BUN 34 H (7-17) mg/dL Creatinine 3.33 H (0.52-1.04) mg/dL Glucose 922 H* (74-99) mg/dL POC Glucose (mg/dL) >600 H 451 H (70-110) mg/dL Calcium (8.4-10.2) mg/dL 05/21/22 Range/Units 11:48 RBC (3.80-5.40) m/uL Hgb (11.4-16.0) gm/dL Hct (34.0-46.0) % RDW (11.5-15.5) % Lymphocytes # (1.0-4.8) k/uL Sodium (137-145) mmol/L Potassium (3.5-5.1) mmol/L Chloride (98-107) mmol/L Carbon Dioxide (22-30) mmol/L BUN (7-17) mg/dL Creatinine (0.52-1.04) mg/dL Glucose (74-99) mg/dL POC Glucose (mg/dL) 112 H (70-110) mg/dL Calcium (8.4-10.2) mg/dL Assessment and Plan Assessment: #1 ESRD on hemodialysis MWF schedule. #2 hyperkalemia, recurrent needing dialysis. Rule out recirculation. #3 COVID-19 PCR positive. #4 DKA #5 hyperkalemia Plan: #1 hemodialysis today for hyperkalemia. #2 vascular surgery evaluation for fistulogram to rule out stenosis. #3 check labs in the morning. Next dialysis on Monday.
[2022-05-21 14:19] VITALS: BP 145/72; PULSE 84; RESP 18; TEMP 97.2
--- NOTE | 2022-05-24 01:34 | DS ---
DISCHARGE SUMMARY CHIEF COMPLAINT: Uncontrolled hypertension and diabetes with renal failure. HISTORY OF PRESENT ILLNESS AND PHYSICAL EXAMINATION: Details of this lady's history and physical can be found in the initial workup. LABORATORY STUDIES: While she was in the hospital, she had laboratory studies, which were numerous and could be found in the laboratory section of her chart. COURSE IN THE HOSPITAL: After admission, she was placed on bedrest and started on intravenous fluids. She was dialyzed every other day. As usual, management of her hypertension and diabetes were difficult. Part of the problem was that she frequently would refuse to take her insulin or some of her medications. At one point, she had a cardiac arrest when her potassium was measured at 8. It was not clear why this was happening, and she was being dialyzed every 48 hours. She was moved to ICU where she recovered and seemed to have no neurologic deficits. She was a discharge conundrum, as usual. She has poor care at home and is noncompliant. Her mother has guardianship, but there has been no place located in the area they can take her due to her complicated medical issues. The only place could be found was in [place]. Finally, her blood pressure, blood sugar seemed to be under fairly good control, and her mother was coming up for the holidays to pick her up and take her home on [facility]. FINAL DIAGNOSES: 1. Uncontrolled type 1 insulin-dependent diabetes mellitus. 2. Uncontrolled hypertension. 3. Stage 5 chronic kidney disease, on dialysis. 4. Cardiac arrest. 5. Hyperkalemia. 6. Depression. 7. Anemia. OPERATIONS: None. CONSULTATIONS: Nephrology, Cardiology, Intensive Medicine. She is improved. MMODL / IJN: [id number] /
--- NOTE | 2022-05-24 02:07 | PN ---
PROGRESS NOTE DATE OF SERVICE: 05/20/2022 CHIEF COMPLAINT: Renal failure, hypertension, diabetes. HISTORY OF PRESENT ILLNESS: This lady is doing fairly well. Blood pressures are under much better control. She has not had any further problems of hyperkalemia. Blood sugars still are somewhat erratic. PHYSICAL EXAMINATION: CHEST: Clear. CARDIAC: Normal. ABDOMEN: Soft, nontender. IMPRESSION: 1. Status post cardiac arrest. 2. Hyperkalemia. 3. Stage 5 chronic kidney disease. 4. Uncontrolled diabetes. 5. Uncontrolled type 1 diabetes. PLAN: She is anxious to be discharged. Her mother is coming to town tomorrow, and, hopefully, we can discharge her then. The mother is the guardian. MMODL / IJN: [id number] /
--- NOTE | 2022-06-01 15:07 | CDI ---
Documentation Clarification Form Date: 06/01/2022 2:18:12 PM From: Nguyen Bertrand RN CCDS Admit Date: 04/25/2022 12:03:00 AM Patient Name: Patsy Pizano Visit Number: [id number] Discharge Date: 05/21/2022 4:29:00 PM ATTENTION: The Clinical Documentation Specialists (CDI) and [facility] Coding Staff appreciate your assistance in clarifying documentation. Please respond to the clarification below the line at the bottom and electronically sign. The CDI & [facility] Coding staff will review the response and follow-up if needed. Please note: Queries are made part of the Legal Health Record. If you have any questions, please contact the author of this message via ITS. Dr. Aurelia Poe There is documentation of DKA, 05/18, Nephrology progress note. Additional clarification is requested. History/Risk Factors: 31-year-old female presents to the ED with increased shortness of breath and weakness discharged from hospital four to five days prior. Medical History: CVA; DM Type 1, ESRD with hemodialysis M/W/F and HTN. Clinical Indicators: 05/18, Nephrology note: Currently maintained on insulin drip. Last potassium was 5.1 on 05/15/2022. Serum acetone is ordered to rule out DKA since her CO2 also dropped to 16. , Acetone, Qual: Negative Labs, 05/18: Potassium 8.4; Carbon Dioxide 16; Blood Glucose 596 Treatment: 05/18 Hemodialysis; 05/18 Novolog 10-unit SQ x 1; 05/18 Calcium Gluconate/Sodium Chloride 100mls @ 100mls/hr x 1; 05/18 Albuterol Sulfate/Sodium Chloride Inhalation x 1; 05/18 Human R Bolus 5-unit IV x 1; 05/18 07:30 D/C 05/18 15:09 Insulin Human Regular 101mls @ 5.03 mls/hr IV; 05/18 Sodium Bicarbonate 50ml IV x 1 STA; 05/18 10:37 05/18 14:33 0.9NS 75cc/hr IV; 05/18 15:09 - 05/19 15:56 Dextrose 5% / Sodium Chloride NS; 05/18 Kayexalate 15gm PO x 1. Can you please clarify DKA? [ ] DKA ruled in [ ] DKA ruled out [ ] Other, please specify [ ] Unable to determine DKA ruled out (Template Last Revised: July 2020) LAMARD
== END 2022-05-21 16:29 | disposition home health service (06) | DRG 208 ==
LOC: EC 20:05 → 4SSUR 04-25 00:03 → 2SICU 04-26 17:47 → UNDODISIN 04-26 18:10 → 3SCARD 05-01 15:55 → 4SSUR 05-13 17:52 → 2SICU 05-18 07:11 → 3SCARD 05-20 18:01
PROVIDERS: ADMIT Family Medicine; ATTEND Family Medicine
PROC: 5A1D70Z Performance of Urinary Filtration, Intermittent, Less than 6 Hours Per Day (ICD-10-PCS; principal; 2022-04-25)
PROC: 5A1945Z Respiratory Ventilation, 24-96 Consecutive Hours (ICD-10-PCS; 2022-04-26)
PROC: 5A12012 Performance of Cardiac Output, Single, Manual (ICD-10-PCS; 2022-04-26)
PROC: 3E033XZ Introduction of Vasopressor into Peripheral Vein, Percutaneous Approach (ICD-10-PCS; 2022-04-26)
PROC: 0BH18EZ Insertion of Endotracheal Airway into Trachea, Via Natural or Artificial Opening Endoscopic (ICD-10-PCS; 2022-04-26)
PROC: 30233N1 Transfusion of Nonautologous Red Blood Cells into Peripheral Vein, Percutaneous Approach (ICD-10-PCS; 2022-04-27)
PROC: 5A09357 Assistance with Respiratory Ventilation, Less than 24 Consecutive Hours, Continuous Positive Airway Pressure (ICD-10-PCS; 2022-04-28)
PROC: 5A0935A Assistance with Respiratory Ventilation, Less than 24 Consecutive Hours, High Flow/Velocity Cannula (ICD-10-PCS; 2022-04-28)
DX: U07.1 COVID-19 (principal); I46.8 Cardiac arrest due to other underlying condition; J96.01 Acute respiratory failure with hypoxia; J96.02 Acute respiratory failure with hypercapnia; J69.0 Pneumonitis due to inhalation of food and vomit; N18.6 End stage renal disease; I31.39 Other pericardial effusion (noninflammatory); J81.1 Chronic pulmonary edema; I13.11 Hypertensive heart and chronic kidney disease without heart failure, with stage 5 chronic kidney disease, or end stage renal disease; J44.0 Chronic obstructive pulmonary disease with (acute) lower respiratory infection; E87.1 Hypo-osmolality and hyponatremia; Z68.1 Body mass index [BMI] 19.9 or less, adult; E10.42 Type 1 diabetes mellitus with diabetic polyneuropathy; D63.1 Anemia in chronic kidney disease; E10.319 Type 1 diabetes mellitus with unspecified diabetic retinopathy without macular edema; E83.51 Hypocalcemia; E10.22 Type 1 diabetes mellitus with diabetic chronic kidney disease; G25.81 Restless legs syndrome; F32.A Depression, unspecified; Z99.2 Dependence on renal dialysis; E78.5 Hyperlipidemia, unspecified; H53.009 Unspecified amblyopia, unspecified eye; J40 Bronchitis, not specified as acute or chronic; E87.5 Hyperkalemia; E87.70 Fluid overload, unspecified; H54.8 Legal blindness, as defined in USA; R01.1 Cardiac murmur, unspecified; R63.6 Underweight; R00.0 Tachycardia, unspecified; R19.7 Diarrhea, unspecified; T40.605A Adverse effect of unspecified narcotics, initial encounter; M89.8X9 Other specified disorders of bone, unspecified site; K44.9 Diaphragmatic hernia without obstruction or gangrene; N27.1 Small kidney, bilateral; R04.0 Epistaxis; T38.0X5A Adverse effect of glucocorticoids and synthetic analogues, initial encounter; R49.0 Dysphonia; Z91.013 Allergy to seafood; Z91.041 Radiographic dye allergy status; Z79.899 Other long term (current) drug therapy; Z79.82 Long term (current) use of aspirin; Z79.4 Long term (current) use of insulin; Z86.73 Personal history of transient ischemic attack (TIA), and cerebral infarction without residual deficits; Z28.310 Unvaccinated for COVID-19; Z91.199 Patient's noncompliance with other medical treatment and regimen due to unspecified reason
CPT/HCPCS: 36415; 36600; 71045; 71046; 80048; 80051; 80053; 82009; 82565; 82728; 82803; 82805; 82947; 83036; 83540; 83550; 83605; 83690; 83735; 83880; 84100; 84132; 84484; 84520; 85025; 85027; 85610; 85730; 86850; 86900; 86901; 86920; 87040; 87070; 87205; 87324; 87635; 90935; 92950; 93005; 94002; 94003; 94640; 94660; 94760; 96374; 96375; 99285

== ENCOUNTER 2022-05-22 16:48 | Emergency (ER) | payer MEDICARE, OTHER ==
[2022-05-22 17:07] VITALS: TEMP 98.8
--- NOTE | 2022-05-22 17:20 | ED ---
SOB HPI - General Chief Complaint: Shortness of Breath Stated Complaint: SOB Time Seen by Provider: 05/22/22 17:13 Source: patient, RN notes reviewed Mode of arrival: ambulatory Limitations: no limitations - History of Present Illness Initial Comments: This is a pleasant 31-year-old female with a history of brittle diabetes mellitus, on insulin, chronic renal failure, on hemodialysis. Patient was discharged yesterday after a long admission. Patient had hyperkalemia, subsequent cardiac arrest, had to have CPR. Patient sustained right rib fractures from this. Patient was admitted to the hospital found to have COVID- 19 as well. Patient states she was doing well upon discharge yesterday but feels like she is still short of breath today. Patient states she does have pain but only area of the right ribs. Patient currently wearing a rib binder. No headache, no fever or chills, no changes in vision or hearing, no sore throat or difficulty with speech, no neck pain, no chest pain, no abdominal pain, no nausea or vomiting, no changes in urination or bowel movements, no numbness or tingling, no extremity pain, no skin rashes or lesions. Past medical, surgical, social, and family history reviewed. Patient has no personal history of DVT or PE. Although there is a family history.Patient was discharged from the hospital yesterday after being admitted with COVID-19, chronic kidney disease, hyperkalemia, and hypoxemia. - Related Data Home Medications Medication Instructions Recorded Confirmed Ergocalciferol (Vitamin D2) 1,250 mcg PO Q30D 04/03/21 04/25/22 [Drisdol (50,000 Iu)] carvediloL [Coreg] 25 mg PO BID 04/03/21 04/25/22 Escitalopram [Lexapro] 20 mg PO DAILY 04/17/21 04/25/22 Albuterol Inhaler [Ventolin Hfa 2 puff INHALATION RT-QID PRN 12/06/21 04/25/22 Inhaler] Aspirin 81 mg PO DAILY 12/06/21 04/25/22 Methoxy Peg-Epoetin Beta [Mircera] 200 mcg IVPB Q14D 12/06/21 04/25/22 NIFEdipine XL [Procardia XL] 60 mg PO BID 12/06/21 04/25/22 Melatonin [Melatonin Dissolving 10 mg PO HS 12/21/21 04/25/22 Tablet] Lidocaine-Prilocaine Cream [Emla 1 applic TOPICAL MOWEFR PRN 02/09/22 04/25/22 Cream 2.5%/2.5%] buPROPion SR [Wellbutrin SR] 150 mg PO BID 02/09/22 04/25/22 Previous Rx's Medication Instructions Recorded Acetaminophen Tab [Tylenol] 650 mg PO Q6HR PRN #30 tab 04/09/21 Glucagon Emergency Kit 1 mg IM ONCE PRN #1 kit 06/15/21 Cyanocobalamin [Vitamin B-12] 1,000 mcg PO DAILY #60 tab 09/06/21 Atorvastatin [Lipitor] 40 mg PO DAILY 30 Days #30 tab 10/13/21 Calcium Acetate [PhosLo] 667 mg PO TID-W/MEALS 30 Days #90 10/13/21 tab Pantoprazole Sodium [Protonix] 20 mg PO BID #30 tab 10/15/21 LORazepam [Ativan] 1 mg PO TID PRN #90 tab 12/09/21 hydrOXYzine HCL [Atarax] 25 mg PO TID PRN #90 tab 12/09/21 Darbepoetin Tate [Aranesp] 40 mcg SQ Q7D each 04/08/22 DULoxetine HCL [Cymbalta] 30 mg PO BID 30 Days #60 cap 04/19/22 INSULIN ASPART (NovoLOG) [NovoLOG 6 unit SQ TID-W/MEALS #90 each 04/19/22 (formulary)] Mirtazapine [Remeron] 45 mg PO HS 30 Days #30 tab 04/19/22 Torsemide [Demadex] 40 mg PO DAILY #10 tab 04/19/22 cloNIDine HCL [Catapres] 0.3 mg PO TID 90 Days #90 tab 04/19/22 rOPINIRole HCL [Requip] 2 mg PO BID 30 Days #60 tab 04/19/22 traZODone HCL [Desyrel] 50 mg PO HS PRN #30 tab 04/19/22 Enoxaparin [Lovenox] 30 mg SQ DAILY #30 each 05/21/22 Insulin Detemir (Levemir) [Levemir] 8 unit SQ DAILY@0700 #30 each 05/21/22 hydrALAZINE HCL [Apresoline] 100 mg PO TID #90 tab 05/21/22 Allergies Allergy/AdvReac Type Severity Reaction Status Date / Time Fish Containing Products Allergy Rash/Hives Verified 05/22/22 17:07 [Fish] iodine Allergy Anaphylaxis Verified 05/22/22 17:07 Review of Systems ROS Statement: Those systems with pertinent positive or pertinent negative responses have been documented in the HPI. ROS Other: All systems not noted in ROS Statement are negative. Past Medical History Past Medical History: CVA/TIA, Diabetes Mellitus, Dialysis, Eye Disorder, Hypertension, Renal Disease Additional Past Medical History / Comment(s): ESRD with hemodialysis M/W/F, IDDM type 1, DKA, neuropathy bilateral legs/feet, diabetic retinopathy/legally blind, RLS, gastritis, severe hypokalemia, fluid retention in abdomin/legs. History of Any Multi-Drug Resistant Organisms: None Reported Past Surgical History: Appendectomy, Section, Cholecystectomy Additional Past Surgical History / Comment(s): fistula left arm Past Anesthesia/Blood Transfusion Reactions: No Reported Reaction Past Psychological History: Anxiety, Depression Smoking Status: Never smoker Past Alcohol Use History: None Reported Past Drug Use History: None Reported - Past Family History Mother Family Medical History: Cancer, Hypertension Additional Family Medical History / Comment(s): Thyroid cancer, bipolar Father Family Medical History: Seizure Disorder Additional Family Medical History / Comment(s): Epilepsy General Exam - General Exam Comments Initial Comments: Patient noted to be hypertensive. Remainder of vital signs are stable. SpO2 on room air is 100%. Patient has mild increased work of breathing. No adventitious lung sounds otherwise. Limitations: no limitations General appearance: in distress Head exam: Present: atraumatic, normocephalic, normal inspection Eye exam: Present: normal appearance, PERRL, EOMI. Absent: scleral icterus, conjunctival injection, periorbital swelling ENT exam: Present: normal exam, normal oropharynx, mucous membranes moist, normal external ear exam. Absent: mucous membranes dry Neck exam: Present: normal inspection, full ROM. Absent: tenderness, meningismus, lymphadenopathy Respiratory exam: Present: normal lung sounds bilaterally, chest wall tenderness (Right lateral ribs), accessory muscle use (Minimal). Absent: respiratory distress, wheezes, rales, rhonchi, stridor, decreased breath sounds, prolonged expiratory Cardiovascular Exam: Present: regular rate, normal rhythm, normal heart sounds. Absent: systolic murmur, diastolic murmur, rubs, gallop, clicks GI/Abdominal exam: Present: soft, normal bowel sounds. Absent: distended, tenderness, guarding, rebound, rigid Extremities exam: Present: normal inspection, full ROM, normal capillary refill. Absent: tenderness, pedal edema, joint swelling, calf tenderness Back exam: Present: normal inspection Neurological exam: Present: alert, oriented X3, CN II-XII intact Psychiatric exam: Present: normal affect, normal mood Skin exam: Present: warm, dry, intact, normal color. Absent: rash Course Vital Signs 05/22/22 17:05 Temperature 98.8 F Pulse Rate 104 H Respiratory 24 Rate Blood Pressure 165/89 O2 Sat by Pulse 100 Oximetry - Reevaluation(s) Reevaluation #1: 05/22/22 19:20 Medical record is reviewed Symptoms are improved here in the emergency department Patient is informed of results and questions answered Patient in no distress Medical Decision Making - Medical Decision Making Was pt. sent in by a medical professional or institution? @ -[no] Did you speak to anyone other than the patient for history? @ -no Did you review nursing and triage notes? @ -yes Were old charts reviewed? @ -Reviewed laboratory investigations and charts from recent admission and discharge yesterday. Differential Diagnosis? @ -[Differential Dyspnea: Coronary syndrome, arrhythmia, tamponade, asthma, COPD, pulmonary embolism, pneumonia, pneumothorax, pulmonary effusion, anaphylaxis, diabetic ketoacidosis, flailed chest, pulmonary contusion, diaphragmatic rupture, anemia, neuromuscular, this is not meant to be an all-inclusive list. ] EKG interpreted by me (3pts min.)? @ -[Independent interpretation by me, reviewed by the ED attending physician] X-rays interpreted by me (1pt min.)? @ -Independent interpretation, improved from previous study CT interpreted by me (1pt min.)? @ -[none] U/S interpreted by me (1pt. min.)? @ -[none] What testing was considered but not performed? (CT, X-rays, U/S, labs)? Why? @Further investigation deferred What meds were considered but not given? Why? @ -Did consider antibiotics. However after hearing the patient's normal chest x-ray, these were deferred. Did you discuss the management of the patient with other professionals? @ -He attending physician Did you reconcile home meds? @ -Yes Was smoking cessation discussed for >3mins.? @ -I discussed smoking cessation for greater than 3 minutes. The risk of smoking were discussed with the patient including but not limited to risks of cancer, stroke, coronary artery disease and COPD. Also discussed with patient were multiple methods of quitting smoking. Lastly we discussed the financial cost of smoking. Was critical care preformed (if so, how long)? @ -[none] Were there social determinants of health that impacted care today? How? (Homelessness, low income, unemployed, alcoholism, drug addiction, transportation, low edu. Level, literacy, decrease access to med. care, penitentiary, rehab)? @ -End-stage renal disease, on hemodialysis Was there de-escalation of care discussed even if they declined? (Discuss DNR or withdrawal of care, Hospice)? @ -[Discuss DNR or withdrawal of care, Hospice?] What co-morbidities impacted this encounter? (DM, HTN, Smoking, COPD, CAD, Cancer, CVA, Hep., AIDS, mental health diagnosis, sleep apnea, morbid obesity)? @ -Patient has end-stage renal disease, patient recently admitted after cardiac arrest with electrolyte abnormalities. Patient had rib fractures secondary to CPR. Patient's workup today shows stable anemia, stable blood work otherwise. Patient did have a mildly elevated d-dimer but had an oxygen saturation of 100% on room air. Patient is already on Lovenox. I did give today's dose. We'll have the patient follow-up with her regular physician regarding further dosing. Patient has dialysis tomorrow. Treatment plan discussed with the patient. She concurs with this plan. Discussed in detail with ED attending physician. Was patient admitted / discharged? @ -Patient discharged, see above for emergency Department course Undiagnosed new problem with uncertain prognosis? @ -Given the patient's comorbidities. Patient does have a guarded prognosis Drug Therapy requiring intensive monitoring for toxicity (Heparin, Nitro, Insulin, Cardizem)? @ -[none] Were any procedures done? @ -[none] Diagnosis/symptom? @ -Shortness of breath, likely secondary to right rib fractures. Does not appear to be consistent with infectious process. Acute, or Chronic, or Acute on Chronic? @ -Acute on chronic Uncomplicated (without systemic symptoms) or Complicated (systemic symptoms)? @ -Complicated Side effects of treatment? @ -[none] Exacerbation, Progression, or Severe Exacerbation] @ -Exacerbation Poses a threat to life or bodily function? @ -Unlikely currently. However given the patient's comorbidities, patient has a guarded prognosis. The case was discussed in detail with ED attending physician. Presentation, findings, treatment plan discussed in detail. Patient was told to return to the ER for any signs or symptoms worsen. Told to return immediately if any other problems arise. All questions answered. Treatment plan discussed. Patient in agreement Every effort has been made to ensure accuracy of this dictation. However, due to the limitations of electronic medical records and dictation devices, errors in charting still occur. Collections Assistant Dr. Murillo - Lab Data Result diagrams: 05/22/22 17:50 05/22/22 17:50 Lab Results 05/22/22 05/22/22 05/22/22 Range/Units 17:50 17:50 17:50 WBC 8.5 (3.8-10.6) k/uL RBC 2.79 L (3.80-5.40) m/uL Hgb 8.9 L (11.4-16.0) gm/dL Hct 26.0 L (34.0-46.0) % MCV 93.2 (80.0-100.0) fL MCH 32.0 (25.0-35.0) pg MCHC 34.3 (31.0-37.0) g/dL RDW 16.4 H (11.5-15.5) % Plt Count 344 (150-450) k/uL MPV 8.5 Neutrophils % 73 % Lymphocytes % 11 % Monocytes % 6 % Eosinophils % 7 % Basophils % 1 % Neutrophils # 6.2 (1.3-7.7) k/uL Lymphocytes # 0.9 L (1.0-4.8) k/uL Monocytes # 0.5 (0-1.0) k/uL Eosinophils # 0.6 (0-0.7) k/uL Basophils # 0.1 (0-0.2) k/uL Anisocytosis Slight PT 10.1 (9.0-12.0) sec INR 0.9 (<1.2) APTT 26.1 (22.0-30.0) sec D-Dimer 0.87 H (<0.60) mg/L FEU Sodium 139 (137-145) mmol/L Potassium 4.7 (3.5-5.1) mmol/L Chloride 101 (98-107) mmol/L Carbon Dioxide 24 (22-30) mmol/L Anion Gap 14 mmol/L BUN 49 H (7-17) mg/dL Creatinine 4.79 H (0.52-1.04) mg/dL Est GFR (CKD-EPI)AfAm 13 (>60 ml/min/1.73 sqM) Est GFR (CKD-EPI)NonAf 11 (>60 ml/min/1.73 sqM) Glucose 74 (74-99) mg/dL Calcium 9.3 (8.4-10.2) mg/dL Phosphorus 4.5 (2.5-4.5) mg/dL Magnesium 2.1 (1.6-2.3) mg/dL Total Bilirubin 0.5 (0.2-1.3) mg/dL AST 30 (14-36) U/L ALT 27 (4-34) U/L Alkaline Phosphatase 213 H (38-126) U/L Troponin I (0.000-0.034) ng/mL NT-Pro-B Natriuret Pep pg/mL Total Protein 7.0 (6.3-8.2) g/dL Albumin 4.2 (3.5-5.0) g/dL Influenza Type A RNA (Not Detectd) Influenza Type B (PCR) (Not Detectd) 05/22/22 05/22/22 05/22/22 Range/Units 17:50 17:50 17:50 WBC (3.8-10.6) k/uL RBC (3.80-5.40) m/uL Hgb (11.4-16.0) gm/dL Hct (34.0-46.0) % MCV (80.0-100.0) fL MCH (25.0-35.0) pg MCHC (31.0-37.0) g/dL RDW (11.5-15.5) % Plt Count (150-450) k/uL MPV Neutrophils % % Lymphocytes % % Monocytes % % Eosinophils % % Basophils % % Neutrophils # (1.3-7.7) k/uL Lymphocytes # (1.0-4.8) k/uL Monocytes # (0-1.0) k/uL Eosinophils # (0-0.7) k/uL Basophils # (0-0.2) k/uL Anisocytosis PT (9.0-12.0) sec INR (<1.2) APTT (22.0-30.0) sec D-Dimer (<0.60) mg/L FEU Sodium (137-145) mmol/L Potassium (3.5-5.1) mmol/L Chloride (98-107) mmol/L Carbon Dioxide (22-30) mmol/L Anion Gap mmol/L BUN (7-17) mg/dL Creatinine (0.52-1.04) mg/dL Est GFR (CKD-EPI)AfAm (>60 ml/min/1.73 sqM) Est GFR (CKD-EPI)NonAf (>60 ml/min/1.73 sqM) Glucose (74-99) mg/dL Calcium (8.4-10.2) mg/dL Phosphorus (2.5-4.5) mg/dL Magnesium (1.6-2.3) mg/dL Total Bilirubin (0.2-1.3) mg/dL AST (14-36) U/L ALT (4-34) U/L Alkaline Phosphatase (38-126) U/L Troponin I 0.018 (0.000-0.034) ng/mL NT-Pro-B Natriuret Pep 75043 pg/mL Total Protein (6.3-8.2) g/dL Albumin (3.5-5.0) g/dL Influenza Type A RNA Not Detected (Not Detectd) Influenza Type B (PCR) Not Detected (Not Detectd) - EKG Data -: EKG Interpreted by Me EKG Comments: EKG independently interpreted by me at 1907 and reviewed by the ED attending physician reveals sinus rhythm with possible atrial enlargement. Normal intervals. Left axis deviation. Patient has nonspecific T-wave abnormalities. No evidence of significant ST elevation or depression. Normal QRS morphology. When compared to the previous study from 04/27/2022 that are nonspecific changes. Patient's last EKG on May 18 showed a wide QRS complex. Apparent ly at that time the patient's potassium was 8.6. - Radiology Data Radiology results: report reviewed (Independent interpretation of the 1 view chest x-ray by me reveals cardiomegaly with no other evidence of acute findings. X-ray appears to be improved when compared to the previous study from 05/12/2022. Reviewed radiology report.), image reviewed Disposition Clinical Impression: Shortness of breath, Chronic anemia, End stage renal disease, Uncontrolled hypertension Narrative: Postviral syndrome Disposition: HOME SELF-CARE Condition: Good Instructions (If sedation given, give patient instructions): Shortness of Breath (ED) Additional Instructions: Continue the Lovenox 30 mg subcutaneously as directed by your regular physician. Follow-up with your regular physician as directed. Return to the ER immediately if any symptoms worsen, new symptoms arise, or any other problems develop. Make sure he follow-up with your primary care physician tomorrow, call at 8 AM for further medication management and reevaluation. To dialysis as planned. Is patient prescribed a controlled substance at d/c from ED?: No Referrals: Roque Buckner MD [Primary Care Provider] - 05/23/22 8:00 am Time of Disposition: 19:32
[2022-05-22] MEDS ORDERED: cefTRIAXone IN SWFI 1,000 MG/10 ML SYRINGE IVP STA (17:27)
[2022-05-22] MEDS ORDERED: MORPHINE SULFATE 4 MG/ML SYRINGE IV STA (17:27)
[2022-05-22] MEDS ORDERED: DOXYCYCLINE 100 MG CAP PO STA (17:28)
[2022-05-22] MEDS ORDERED: metroNIDAZOLE 500 MG TAB PO STA (17:29)
--- NOTE | 2022-05-22 17:48 | XR ---
EXAMINATION TYPE: XR chest 1V portable DATE OF EXAM: 05/22/2022 COMPARISON: 05/18/2022 HISTORY: Short of breath TECHNIQUE: FINDINGS: Heart is enlarged. Lungs are clear of consolidation. There are no hilar masses. Costophreni c angles are clear. Bony thorax is intact. IMPRESSION: No active pulmonary disease. Mild cardiomegaly. No adverse change compared to old exam. T here is clearing of the mild interstitial pulmonary density to a large extent compared to recent exam .
[2022-05-22 18:28] LABS: Anisocytosis Slight; Basophils # (A) 0.1 k/uL (0-0.2); Basophils % (A) 1 %; Eosinophils # (A) 0.6 k/uL (0-0.7); Eosinophils % (A) 7 %; HGB 8.9 gm/dL (11.4-16.0); Lymphocytes # (A) 0.9 k/uL (1.0-4.8); Lymphocytes % (A) 11 %; MCHC 34.3 g/dL (31.0-37.0); MCV 93.2 fL (80.0-100.0); Mean Platelet Volume 8.5; Monocytes # (A) 0.5 k/uL (0-1.0); Monocytes % (A) 6 %; Neutrophils # (A) 6.2 k/uL (1.3-7.7); Neutrophils % (A) 73 %; Platelet Count 344 k/uL (150-450); RBC 2.79 m/uL (3.80-5.40); RDW 16.4 % (11.5-15.5); WBC 8.5 k/uL (3.8-10.6)
[2022-05-22 18:37] LABS: Albumin 4.2 g/dL (3.5-5.0); Calcium 9.3 mg/dL (8.4-10.2); Magnesium 2.1 mg/dL (1.6-2.3); Phosphorus 4.5 mg/dL (2.5-4.5); Potassium 4.7 mmol/L (3.5-5.1); Total Bilirubin 0.5 mg/dL (0.2-1.3)
[2022-05-22 18:44] LABS: INR 0.9 (<1.2); Partial Thromboplastin Time 26.1 sec (22.0-30.0); Prothrombin Time 10.1 sec (9.0-12.0)
[2022-05-22] MEDS ORDERED: ENOXAPARIN 30 MG/0.3 ML SYRINGE SQ STA (19:32)
[2022-05-22 20:04] VITALS: BP 154/83; PULSE 97; RESP 18
== END 2022-05-22 20:03 | disposition home or self-care (01) ==
LOC: EC 16:48
DX: J18.9 Pneumonia, unspecified organism (principal); I10 Essential (primary) hypertension; I12.0 Hypertensive chronic kidney disease with stage 5 chronic kidney disease or end stage renal disease; G45.9 Transient cerebral ischemic attack, unspecified; E11.9 Type 2 diabetes mellitus without complications; N18.9 Chronic kidney disease, unspecified; F41.9 Anxiety disorder, unspecified; F32.A Depression, unspecified; Z99.2 Dependence on renal dialysis; Z79.82 Long term (current) use of aspirin; Z79.899 Other long term (current) drug therapy; Z91.013 Allergy to seafood
CPT/HCPCS: 36415; 93005; 85379; 83880; 80053; 83735; 84100; 84484; 85025; 85610; 85730; 87502; 71045; 99285; J1650

== ENCOUNTER 2022-06-03 15:35 | Emergency (ER) | payer MEDICARE, OTHER ==
[2022-06-03 15:46] VITALS: BP 177/93; PULSE 96; RESP 20; TEMP 97
--- NOTE | 2022-06-03 16:25 | ED ---
Recheck HPI - General Source: patient, family, RN notes reviewed Mode of arrival: ambulatory Limitations: no limitations <Gracia Blackwell - Last Filed: 06/03/22 16:17> - General Source: patient, family, RN notes reviewed Limitations: no limitations <James Jama - Last Filed: 06/03/22 20:52> - General Chief Complaint: Recheck/Abnormal Lab/Rx Stated Complaint: fistula bleeding Time Seen by Provider: 06/03/22 16:25 - History of Present Illness Initial Comments: Patient is a 31 year-old female who presents to the emergency department due to issues with her left forearm fistula. Patient has history of ESRD on hemodialysis M//W/F. States her fistula has been bleeding since after dialysis on Monday. Reports use of gauze and rob wrap at home without success. Patient did have dialysis today and was sent for evaluation of fistula due to continued bleeding. On Lovenox but has not taken medication in 2 days. Patient reports weakness which is chronic for her. Denies chest pain, palpitations, lightheadedness, dizziness, shortness of breath. (Gracia Blackwell) Patient is a pleasant 31-year-old female presenting to the emergency Department with bleeding from her left forearm fistula. Fistula has been present for 2 years now. Patient has had some mild increase in bleeding recently. Patient has recently been on Lovenox, last dose was 3 days ago now. Patient has had mild bleeding from the fistula for the past 3 days. Patient did have dialysis today. Patient is still having mild oozing from 2 sites used today however that is normal for her. Bleeding has been mild. Patient has soaked through 2 bandages. (James Jama) - Related Data Home Medications Medication Instructions Recorded Confirmed Ergocalciferol (Vitamin D2) 1,250 mcg PO Q30D 04/03/21 04/25/22 [Drisdol (50,000 Iu)] carvediloL [Coreg] 25 mg PO BID 04/03/21 04/25/22 Escitalopram [Lexapro] 20 mg PO DAILY 04/17/21 04/25/22 Albuterol Inhaler [Ventolin Hfa 2 puff INHALATION RT-QID PRN 12/06/21 04/25/22 Inhaler] Aspirin 81 mg PO DAILY 12/06/21 04/25/22 Methoxy Peg-Epoetin Beta [Mircera] 200 mcg IVPB Q14D 12/06/21 04/25/22 NIFEdipine XL [Procardia XL] 60 mg PO BID 12/06/21 04/25/22 Melatonin [Melatonin Dissolving 10 mg PO HS 12/21/21 04/25/22 Tablet] Lidocaine-Prilocaine Cream [Emla 1 applic TOPICAL MOWEFR PRN 02/09/22 04/25/22 Cream 2.5%/2.5%] buPROPion SR [Wellbutrin SR] 150 mg PO BID 02/09/22 04/25/22 Previous Rx's Medication Instructions Recorded Acetaminophen Tab [Tylenol] 650 mg PO Q6HR PRN #30 tab 04/09/21 Glucagon Emergency Kit 1 mg IM ONCE PRN #1 kit 06/15/21 Cyanocobalamin [Vitamin B-12] 1,000 mcg PO DAILY #60 tab 09/06/21 Atorvastatin [Lipitor] 40 mg PO DAILY 30 Days #30 tab 10/13/21 Calcium Acetate [PhosLo] 667 mg PO TID-W/MEALS 30 Days #90 10/13/21 tab Pantoprazole Sodium [Protonix] 20 mg PO BID #30 tab 10/15/21 LORazepam [Ativan] 1 mg PO TID PRN #90 tab 12/09/21 hydrOXYzine HCL [Atarax] 25 mg PO TID PRN #90 tab 12/09/21 Darbepoetin Tate [Aranesp] 40 mcg SQ Q7D each 04/08/22 DULoxetine HCL [Cymbalta] 30 mg PO BID 30 Days #60 cap 04/19/22 INSULIN ASPART (NovoLOG) [NovoLOG 6 unit SQ TID-W/MEALS #90 each 04/19/22 (formulary)] Mirtazapine [Remeron] 45 mg PO HS 30 Days #30 tab 04/19/22 Torsemide [Demadex] 40 mg PO DAILY #10 tab 04/19/22 cloNIDine HCL [Catapres] 0.3 mg PO TID 90 Days #90 tab 04/19/22 rOPINIRole HCL [Requip] 2 mg PO BID 30 Days #60 tab 04/19/22 traZODone HCL [Desyrel] 50 mg PO HS PRN #30 tab 04/19/22 Enoxaparin [Lovenox] 30 mg SQ DAILY #30 each 05/21/22 Insulin Detemir (Levemir) [Levemir] 8 unit SQ DAILY@0700 #30 each 05/21/22 hydrALAZINE HCL [Apresoline] 100 mg PO TID #90 tab 05/21/22 Allergies Allergy/AdvReac Type Severity Reaction Status Date / Time Fish Containing Products Allergy Rash/Hives Verified 05/22/22 17:07 [Fish] iodine Allergy Anaphylaxis Verified 05/22/22 17:07 Review of Systems ROS Other: All systems not noted in ROS Statement are negative. <Gracia Blackwell - Last Filed: 06/03/22 16:17> ROS Other: All systems not noted in ROS Statement are negative. Constitutional: Denies: fever Eyes: Denies: eye pain ENT: Denies: ear pain Respiratory: Denies: cough Cardiovascular: Reports: as per HPI. Denies: chest pain <James Jama - Last Filed: 06/03/22 20:52> ROS Statement: Those systems with pertinent positive or pertinent negative responses have been documented in the HPI. Past Medical History Past Medical History: CVA/TIA, Diabetes Mellitus, Dialysis, Eye Disorder, Hypertension, Renal Disease Additional Past Medical History / Comment(s): ESRD with hemodialysis M/W/F, IDDM type 1, DKA, neuropathy bilateral legs/feet, diabetic retinopathy/legally blind, RLS, gastritis, severe hypokalemia, fluid retention in abdomin/legs. History of Any Multi-Drug Resistant Organisms: None Reported Past Surgical History: Appendectomy, Section, Cholecystectomy Additional Past Surgical History / Comment(s): fistula left arm Past Anesthesia/Blood Transfusion Reactions: No Reported Reaction Past Psychological History: Anxiety, Depression Smoking Status: Never smoker Past Alcohol Use History: None Reported Past Drug Use History: None Reported - Past Family History Mother Family Medical History: Cancer, Hypertension Additional Family Medical History / Comment(s): Thyroid cancer, bipolar Father Family Medical History: Seizure Disorder Additional Family Medical History / Comment(s): Epilepsy <Gracia Blackwell - Last Filed: 06/03/22 16:17> General Exam Limitations: no limitations <Gracia Blackwell - Last Filed: 06/03/22 16:17> Limitations: no limitations General appearance: alert, in no apparent distress Respiratory exam: Present: normal lung sounds bilaterally Cardiovascular Exam: Present: regular rate, normal rhythm GI/Abdominal exam: Present: soft. Absent: tenderness Extremities exam: Present: other (Left forearm fistula. Positive thrill. Patient does have 3 small punctures with trace amount of oozing) Neurological exam: Present: alert Psychiatric exam: Present: normal affect, normal mood Skin exam: Present: normal color <James Jama - Last Filed: 06/03/22 20:52> Course Vital Signs 06/03/22 15:42 Temperature 97 F L Pulse Rate 96 Respiratory 20 Rate Blood Pressure 177/93 O2 Sat by Pulse 93 L Oximetry Medical Decision Making <James Jama - Last Filed: 06/03/22 20:52> - Medical Decision Making Was pt. sent in by a medical professional or institution (Dr. PA, ELECTRIC ACCOUNTING MACHINE OPERATOR, urgent care, hospital, or assisted...) When possible be specific @ -[No] Did you speak to anyone other than the patient for history (EMS, parent, family, police, friend...)? What history was obtained from this source @ -Family is present to help provide history. They help with history of anticoagulation. Did you review nursing and triage notes (agree or disagree)? Why? @ -[I reviewed and agree with nursing and triage notes] Were old charts reviewed (outside hosp., previous admission, EMS record, old EKG, old radiological studies, urgent care reports/EKG's, assisted records)? Report findings @ -[No old charts were reviewed] Differential Diagnosis (chest pain, altered mental status, abdominal pain women, abdominal pain men, vaginal bleeding, weakness, fever, dyspnea, syncope, headache, dizziness, GI bleed, back pain, seizure, CVA, palpatations, mental health)? @ -Differential Weakness: Hypoglycemia, shock, sepsis, hyponatremia, anemia, infection, DC, ETOH, adverse medicine reaction, overdose, stroke, this is not meant to be an all-inclusive list. EKG interpreted by me (3pts min.). @ -[As above] X-rays interpreted by me (1pt min.). @ -[None done] CT interpreted by me (1pt min.). @ -[None done] U/S interpreted by me (1pt. min.). @ -[None done] What testing was considered but not performed or refused? (CT, X-rays, U/S, labs)? Why? @ -[None] What meds were considered but not given or refused? Why? @ -[None] Did you discuss the management of the patient with other professionals (professionals i.e. , PA, ELECTRIC ACCOUNTING MACHINE OPERATOR, lab, RT, psych nurse, social media content specialist, er nurse, teacher, mortgage loan officer originator, case maker)? Give summary @ -[No] Was smoking cessation discussed for >3mins.? @ -[No] Was critical care preformed (if so, how long)? @ -[No] Were there social determinants of health that impacted care today? How? (Homelessness, low income, unemployed, alcoholism, drug addiction, transportation, low edu. Level, literacy, decrease access to med. care, nursing home, rehab)? @ -[No] Was there de-escalation of care discussed even if they declined (Discuss DNR or withdrawal of care, Hospice)? DNR status @ -[No] What co-morbidities impacted this encounter? (DM, HTN, Smoking, COPD, CAD, Cancer, CVA, ARF, Chemo, Hep., AIDS, mental health diagnosis, sleep apnea, morbid obesity)? @ -Multiple comorbidities including chronic renal failure and being on Lovenox that was recently held Was patient admitted / discharged? Hospital course, mention meds given and route, prescriptions, significant lab abnormalities, going to OR and other pertinent info. @ -Patient reevaluated and still having minimal oozing. Patient is borderline saturated through a pad. Patient states she just wants to go to bed and would like to be discharged. Patient is having minimal oozing. Gelfoam be applied with further dressing and patient will need repeat reevaluation soon. Undiagnosed new problem with uncertain prognosis? @ -[No] Drug Therapy requiring intensive monitoring for toxicity (Heparin, Nitro, Insul in, Cardizem)? @ -[No] Were any procedures done? @ -[No] Diagnosis/symptom? @ -[Shunt oozing Acute, or Chronic, or Acute on Chronic? @ -Acute Uncomplicated (without systemic symptoms) or Complicated (systemic symptoms)? @ -Uncomplicated Side effects of treatment? @ -[No] Exacerbation, Progression, or Severe Exacerbation? @ -[No] Poses a threat to life or bodily function? How? (Chest pain, USA, DC, pneumonia, PE, COPD, DKA, ARF, appy, cholecystitis, CVA, Diverticulitis, Homicidal, Suicidal, threat to staff... and all critical care pts) @ -[No] (James Jama) Disposition <Gracia Blackwell - Last Filed: 06/03/22 16:17> Is patient prescribed a controlled substance at d/c from ED?: No Time of Disposition: 20:52 <James Jama - Last Filed: 06/03/22 20:52> Clinical Impression: Bleeding from shunt Disposition: HOME SELF-CARE Condition: Stable Instructions (If sedation given, give patient instructions): Arteriovenous Fistula Creation for Hemodialysis (DC), Postoperative Bleeding (ED) Additional Instructions: Continue to hold Lovenox. Please follow-up with primary care physician Monday. Return for continued oozing, increased in oozing, bleeding from any other site, worsening symptoms or any other concerns. Referrals: Roque Buckner MD [Primary Care Provider] - 1-2 days Veto Triana DO [Doctor of Osteopathic Medicine] - 1-2 days
[2022-06-03] MEDS ORDERED: GELATIN SPONGE,ABSORB (LARGE) 1 EACH SPONGE TOPICAL STA (19:15)
== END 2022-06-03 21:08 | disposition home or self-care (01) ==
LOC: EC 15:35
DX: T82.838A Hemorrhage due to vascular prosthetic devices, implants and grafts, initial encounter (principal); G45.9 Transient cerebral ischemic attack, unspecified; E11.9 Type 2 diabetes mellitus without complications; I12.0 Hypertensive chronic kidney disease with stage 5 chronic kidney disease or end stage renal disease; N18.9 Chronic kidney disease, unspecified; Z79.899 Other long term (current) drug therapy; Z79.82 Long term (current) use of aspirin; Z99.2 Dependence on renal dialysis; Z91.013 Allergy to seafood; Z91.041 Radiographic dye allergy status
CPT/HCPCS: 99283

== ENCOUNTER 2022-06-16 16:31 | Emergency (ER) | payer MEDICARE, OTHER ==
--- NOTE | 2022-06-16 17:30 | ED ---
Recheck HPI - General Source: patient Mode of arrival: wheelchair Limitations: no limitations - History of Present Illness MD Complaint: abnormal lab Returns Today for: Called Because of Abnormal Lab/Test (Low hemoglobin) <ElviraMiguelito - Last Filed: 06/16/22 17:28> <JoseSubhash - Last Filed: 06/16/22 18:24> - General Chief Complaint: Recheck/Abnormal Lab/Rx Stated Complaint: Blood Transfusion,Sent by Dr Pleitez Seen by Provider: 06/16/22 17:27 - Related Data Home Medications Medication Instructions Recorded Confirmed Ergocalciferol (Vitamin D2) 1,250 mcg PO Q30D 04/03/21 04/25/22 [Drisdol (50,000 Iu)] carvediloL [Coreg] 25 mg PO BID 04/03/21 04/25/22 Escitalopram [Lexapro] 20 mg PO DAILY 04/17/21 04/25/22 Albuterol Inhaler [Ventolin Hfa 2 puff INHALATION RT-QID PRN 12/06/21 04/25/22 Inhaler] Aspirin 81 mg PO DAILY 12/06/21 04/25/22 Methoxy Peg-Epoetin Beta [Mircera] 200 mcg IVPB Q14D 12/06/21 04/25/22 NIFEdipine XL [Procardia XL] 60 mg PO BID 12/06/21 04/25/22 Melatonin [Melatonin Dissolving 10 mg PO HS 12/21/21 04/25/22 Tablet] Lidocaine-Prilocaine Cream [Emla 1 applic TOPICAL MOWEFR PRN 02/09/22 04/25/22 Cream 2.5%/2.5%] buPROPion SR [Wellbutrin SR] 150 mg PO BID 02/09/22 04/25/22 Previous Rx's Medication Instructions Recorded Acetaminophen Tab [Tylenol] 650 mg PO Q6HR PRN #30 tab 04/09/21 Glucagon Emergency Kit 1 mg IM ONCE PRN #1 kit 06/15/21 Cyanocobalamin [Vitamin B-12] 1,000 mcg PO DAILY #60 tab 09/06/21 Atorvastatin [Lipitor] 40 mg PO DAILY 30 Days #30 tab 10/13/21 Calcium Acetate [PhosLo] 667 mg PO TID-W/MEALS 30 Days #90 10/13/21 tab Pantoprazole Sodium [Protonix] 20 mg PO BID #30 tab 10/15/21 LORazepam [Ativan] 1 mg PO TID PRN #90 tab 12/09/21 hydrOXYzine HCL [Atarax] 25 mg PO TID PRN #90 tab 12/09/21 Darbepoetin Tate [Aranesp] 40 mcg SQ Q7D each 04/08/22 DULoxetine HCL [Cymbalta] 30 mg PO BID 30 Days #60 cap 04/19/22 INSULIN ASPART (NovoLOG) [NovoLOG 6 unit SQ TID-W/MEALS #90 each 04/19/22 (formulary)] Mirtazapine [Remeron] 45 mg PO HS 30 Days #30 tab 04/19/22 Torsemide [Demadex] 40 mg PO DAILY #10 tab 04/19/22 cloNIDine HCL [Catapres] 0.3 mg PO TID 90 Days #90 tab 04/19/22 rOPINIRole HCL [Requip] 2 mg PO BID 30 Days #60 tab 04/19/22 traZODone HCL [Desyrel] 50 mg PO HS PRN #30 tab 04/19/22 Enoxaparin [Lovenox] 30 mg SQ DAILY #30 each 05/21/22 Insulin Detemir (Levemir) [Levemir] 8 unit SQ DAILY@0700 #30 each 05/21/22 hydrALAZINE HCL [Apresoline] 100 mg PO TID #90 tab 05/21/22 Allergies Allergy/AdvReac Type Severity Reaction Status Date / Time Fish Containing Products Allergy Rash/Hives Verified 05/22/22 17:07 [Fish] iodine Allergy Anaphylaxis Verified 05/22/22 17:07 Review of Systems ROS Other: All systems not noted in ROS Statement are negative. <Miguelito Felix - Last Filed: 06/16/22 17:28> ROS Other: All systems not noted in ROS Statement are negative. <Subhash Garcia - Last Filed: 06/16/22 18:24> ROS Statement: Those systems with pertinent positive or pertinent negative responses have been documented in the HPI. Past Medical History Past Medical History: CVA/TIA, Diabetes Mellitus, Dialysis, Eye Disorder, Hypertension, Renal Disease Additional Past Medical History / Comment(s): ESRD with hemodialysis M/W/F, IDDM type 1, DKA, neuropathy bilateral legs/feet, diabetic retinopathy/legally blind, RLS, gastritis, severe hypokalemia, fluid retention in abdomin/legs. History of Any Multi-Drug Resistant Organisms: None Reported Past Surgical History: Appendectomy, Section, Cholecystectomy Additional Past Surgical History / Comment(s): fistula left arm Past Anesthesia/Blood Transfusion Reactions: No Reported Reaction Past Psychological History: Anxiety, Depression Smoking Status: Never smoker Past Alcohol Use History: None Reported Past Drug Use History: None Reported - Past Family History Mother Family Medical History: Cancer, Hypertension Additional Family Medical History / Comment(s): Thyroid cancer, bipolar Father Family Medical History: Seizure Disorder Additional Family Medical History / Comment(s): Epilepsy <Miguelito Felix - Last Filed: 06/16/22 17:28> General Exam Limitations: no limitations <Miguelito Felix - Last Filed: 06/16/22 17:28> Course <Subhash Garcia - Last Filed: 06/16/22 18:24> Vital Signs 06/16/22 06/16/22 16:43 18:23 Temperature 98 F Pulse Rate 77 76 Respiratory 16 20 Rate Blood Pressure 156/82 160/95 O2 Sat by Pulse 92 L 96 Oximetry - Reevaluation(s) Reevaluation #1: 06/16/22 18:23 I discussed the case with Dr. Poe, the motion picture camera operator on-call who is happy with the results here and states that they will see the patient for her regularly scheduled dialysis tomorrow. (Subhash Garcia) Medical Decision Making <Miguelito Felix - Last Filed: 06/16/22 17:28> - Lab Data Result diagrams: 06/16/22 17:32 06/16/22 17:32 - EKG Data -: EKG Interpreted by Me EKG shows normal: sinus rhythm (Rate 77 bpm), axis, intervals (Normal), QRS complexes (Normal) Rate: normal <Subhash Garcia - Last Filed: 06/16/22 18:24> - Medical Decision Making Patient sent for blood transfusion with hemoglobin of 7.1. History of chronic really failure, dialysis, diabetes, congestive heart failure, cardiac arrest states, hypertension transaminitis, hypoxia (Miguelito Felix) - Lab Data Lab Results 06/16/22 06/16/22 06/16/22 Range/Units 17:32 17:32 17:32 WBC 6.2 (3.8-10.6) k/uL RBC 2.79 L (3.80-5.40) m/uL Hgb 8.1 L (11.4-16.0) gm/dL Hct 25.0 L (34.0-46.0) % MCV 89.5 (80.0-100.0) fL MCH 28.9 (25.0-35.0) pg MCHC 32.3 (31.0-37.0) g/dL RDW 16.3 H (11.5-15.5) % Plt Count 315 (150-450) k/uL MPV 8.9 Neutrophils % 78 % Lymphocytes % 13 % Monocytes % 3 % Eosinophils % 5 % Basophils % 1 % Neutrophils # 4.8 (1.3-7.7) k/uL Lymphocytes # 0.8 L (1.0-4.8) k/uL Monocytes # 0.2 (0-1.0) k/uL Eosinophils # 0.3 (0-0.7) k/uL Basophils # 0.1 (0-0.2) k/uL Poikilocytosis Slight Anisocytosis Slight PT 11.5 (9.0-12.0) sec INR 1.1 (<1.2) Sodium 136 L (137-145) mmol/L Potassium 4.5 (3.5-5.1) mmol/L Chloride 92 L (98-107) mmol/L Carbon Dioxide 30 (22-30) mmol/L Anion Gap 14 mmol/L BUN 30 H (7-17) mg/dL Creatinine 3.66 H (0.52-1.04) mg/dL Est GFR (CKD-EPI)AfAm 18 (>60 ml/min/1.73 sqM) Est GFR (CKD-EPI)NonAf 16 (>60 ml/min/1.73 sqM) Glucose 228 H (74-99) mg/dL Calcium 9.6 (8.4-10.2) mg/dL Total Bilirubin 0.7 (0.2-1.3) mg/dL AST 30 (14-36) U/L ALT 23 (4-34) U/L Alkaline Phosphatase 171 H (38-126) U/L Troponin I (0.000-0.034) ng/mL Total Protein 7.5 (6.3-8.2) g/dL Albumin 4.5 (3.5-5.0) g/dL 06/16/22 Range/Units 17:32 WBC (3.8-10.6) k/uL RBC (3.80-5.40) m/uL Hgb (11.4-16.0) gm/dL Hct (34.0-46.0) % MCV (80.0-100.0) fL MCH (25.0-35.0) pg MCHC (31.0-37.0) g/dL RDW (11.5-15.5) % Plt Count (150-450) k/uL MPV Neutrophils % % Lymphocytes % % Monocytes % % Eosinophils % % Basophils % % Neutrophils # (1.3-7.7) k/uL Lymphocytes # (1.0-4.8) k/uL Monocytes # (0-1.0) k/uL Eosinophils # (0-0.7) k/uL Basophils # (0-0.2) k/uL Poikilocytosis Anisocytosis PT (9.0-12.0) sec INR (<1.2) Sodium (137-145) mmol/L Potassium (3.5-5.1) mmol/L Chloride (98-107) mmol/L Carbon Dioxide (22-30) mmol/L Anion Gap mmol/L BUN (7-17) mg/dL Creatinine (0.52-1.04) mg/dL Est GFR (CKD-EPI)AfAm (>60 ml/min/1.73 sqM) Est GFR (CKD-EPI)NonAf (>60 ml/min/1.73 sqM) Glucose (74-99) mg/dL Calcium (8.4-10.2) mg/dL Total Bilirubin (0.2-1.3) mg/dL AST (14-36) U/L ALT (4-34) U/L Alkaline Phosphatase (38-126) U/L Troponin I <0.012 (0.000-0.034) ng/mL Total Protein (6.3-8.2) g/dL Albumin (3.5-5.0) g/dL Disposition <Miguelito Felix - Last Filed: 06/16/22 17:28> Is patient prescribed a controlled substance at d/c from ED?: No <Subhash Garcia - Last Filed: 06/16/22 18:24> Clinical Impression: Chronic renal failure, Anemia Disposition: HOME SELF-CARE Condition: Good Referrals: Roque Buckner MD [Primary Care Provider] - 1-2 days
[2022-06-16 17:42] LABS: Anisocytosis Slight; Basophils # (A) 0.1 k/uL (0-0.2); Basophils % (A) 1 %; Eosinophils # (A) 0.3 k/uL (0-0.7); Eosinophils % (A) 5 %; HGB 8.1 gm/dL (11.4-16.0); Lymphocytes # (A) 0.8 k/uL (1.0-4.8); Lymphocytes % (A) 13 %; MCH 28.9 pg (25.0-35.0); MCHC 32.3 g/dL (31.0-37.0); MCV 89.5 fL (80.0-100.0); Mean Platelet Volume 8.9; Monocytes # (A) 0.2 k/uL (0-1.0); Monocytes % (A) 3 %; Neutrophils # (A) 4.8 k/uL (1.3-7.7); Neutrophils % (A) 78 %; Platelet Count 315 k/uL (150-450); Poikilocytosis Slight; RBC 2.79 m/uL (3.80-5.40); RDW 16.3 % (11.5-15.5); WBC 6.2 k/uL (3.8-10.6)
[2022-06-16 17:49] LABS: INR 1.1 (<1.2); Prothrombin Time 11.5 sec (9.0-12.0)
--- NOTE | 2022-06-16 17:54 | XR ---
EXAMINATION: XR chest 2V: 06/16/2022 5:48 PM CLINICAL INDICATION: dizziness TECHNIQUE: Departmental protocol COMPARISON: 05/22/2022 FINDINGS: The lungs are straight silhouetting of the pulmonary vascular arborization bilaterally by a fine reti cular pattern of increased attenuation bilaterally. The findings are consistent with a clinical diagn osis of interstitial phase pulmonary edema, mild/moderate in degree. The pleural spaces are negative. The cardiac silhouette is mildly enlarged. The skeletal structures and soft tissues are negative for acute findings. IMPRESSION: Mild/moderate interstitial phase pulmonary edema.
[2022-06-16 17:57] LABS: Albumin 4.5 g/dL (3.5-5.0); Calcium 9.6 mg/dL (8.4-10.2); Potassium 4.5 mmol/L (3.5-5.1); Total Bilirubin 0.7 mg/dL (0.2-1.3); Total Protein 7.5 g/dL (6.3-8.2)
[2022-06-16] MEDS ORDERED: LORazepam 1 MG TAB PO STA (18:17)
[2022-06-16 18:23] VITALS: BP 160/95; PULSE 76; RESP 20
[2022-06-16 18:30] VITALS: TEMP 97.8
== END 2022-06-16 18:41 | disposition home or self-care (01) ==
LOC: EC 16:31
DX: I12.0 Hypertensive chronic kidney disease with stage 5 chronic kidney disease or end stage renal disease (principal); E10.22 Type 1 diabetes mellitus with diabetic chronic kidney disease; N18.9 Chronic kidney disease, unspecified; D64.9 Anemia, unspecified; Z86.73 Personal history of transient ischemic attack (TIA), and cerebral infarction without residual deficits; N18.6 End stage renal disease; F41.9 Anxiety disorder, unspecified; F32.A Depression, unspecified; Z91.013 Allergy to seafood; Z91.041 Radiographic dye allergy status; Z79.82 Long term (current) use of aspirin; Z79.899 Other long term (current) drug therapy; Z99.2 Dependence on renal dialysis
CPT/HCPCS: 36415; 71046; 80053; 84484; 85025; 85610; 93005; 99284

== ENCOUNTER 2022-07-27 01:37 | Inpatient (IN) | payer MEDICARE, OTHER ==
[2022-07-27] MEDS ORDERED: SODIUM CHLORIDE 0.9% 1,000 ML IV STA (01:54)
--- NOTE | 2022-07-27 01:54 | ED ---
General Adult HPI - General Chief complaint: Recheck/Abnormal Lab/Rx Stated complaint: Hypotension Time Seen by Provider: 07/27/22 01:39 Source: patient, EMS Mode of arrival: EMS - History of Present Illness Initial comments: Dictation was produced using [employer] dictation software. please excuse any grammatical, word or spelling errors. Chief Complaint: 31-year-old female presents emergency department for generalized weakness History of Present Illness: To 31-year-old female she is well-known to emergency department. She has history of ESRD per she has dialysis Monday. Patient frequents our emergency department often. Patient has history of cardiac arrest due to hyperkalemia. Approximately 2 weeks ago patient was admitted for similar issue where she presented with hypotension ended up having an episode of cardiac arrest. Patient is in ICU. She recovered with no neurologic sequela. Patient states that she's been feeling fine. She did have some fever over the weekend as it was from a viral infection. She went to dialysis on Monday no issues. Yesterday she started to feel a little malaise. The ROS documented in this emergency department record has been reviewed and confirmed by me. Those systems with pertinent positive or negative responses have been documented in the HPI. All other systems are other negative and/or noncontributory. PHYSICAL EXAM: General Impression: Alert and oriented x3, not in acute distress, skin pallor HEENT: Normocephalic atraumatic, extra-ocular movements intact, pupils equal and reactive to light bilaterally, extremities membranes Cardiovascular: Heart regular rate and rhythm Chest: Able to complete full sentences, no retractions, no tachypnea Abdomen: abdomen soft, non-tender, non-distended, no organomegaly Musculoskeletal: Pulses present and equal in all extremities, no peripheral edema Motor: no focal deficits noted Neurological: CN II-XII grossly intact, no focal motor or sensory deficits noted Skin: Intact with no visualized rashes Psych: Normal affect and mood ED course: 31-year-old female well-known to emergency department for a Monday issues presents to the ER for one day of malaise. All signs upon arrival shows hypertension of 80/54. Rest vital signs within acceptable limits she has a mild bradycardia. Chart review was performed. Prior notes from admission starting on May 10 was reviewed. That was the visit when she had episode of cardiac arrest. Review of those notes it is unclear why patient had episode of arrest. Echocardiogram from that admission was unremarkable. Patient's potassium was 5.7. Nursing notes and chart review was performed EKG interpreted by me: Ventricular rate 51, sinus bradycardia, ME interval 155, QRS 96, QTC 504. No ME prolongation, no ST or T-wave changes noted. Site from sinus bradycardia patient's QTc is slightly prolonged. 241am: Patient's blood pressure was still low but stable. Catapres and atropine was trialed to see if there was any sort of change. Metabolic panel shows sodium of 129. Potassium level is normal. Magnesium level is normal. No concern for electrolyte derangement causing bradycardia and hypotension. Patient states that she started to have symptoms of lightheadedness recently especially since her hydralazine medication was increased. Suspect that patient's hypotension is secondary to hydralazine toxicity. Was pt. sent in by a medical professional or institution (, PA, MARKETING LIAISON, urgent care, hospital, or penitentiary...) When possible be specific @ -No Did you speak to anyone other than the patient for history (EMS, parent, family, police, friend...)? What history was obtained from this source @ -EMS Did you review nursing and triage notes (agree or disagree)? Why? @ -I reviewed and agree with nursing and triage notes Were old charts reviewed (outside hosp., previous admission, EMS record, old EKG, old radiological studies, urgent care reports/EKG's, penitentiary records)? Report findings @ -See above. Prior admission notes reviewed Differential Diagnosis (chest pain, altered mental status, abdominal pain women, abdominal pain men, vaginal bleeding, musculoskeletal, weakness, fever, dyspnea, syncope, headache, dizziness, GI bleed, back pain, seizure, CVA, palpatations, mental health)? @ -Differential Weakness: Hypoglycemia, shock, sepsis, hyponatremia, anemia, infection, MD, ETOH, adverse medicine reaction, overdose, stroke, this is not meant to be an all-inclusive list. EKG interpreted by me (3pts min.). @ -See above. Repeat EKG showing worsening QT prolongation of unclear etiology. X-rays interpreted by me (1pt min.). @ -Nonacute CT interpreted by me (1pt min.). @ -None done U/S interpreted by me (1pt. min.). @ -None done What testing was considered but not performed or refused? (CT, X-rays, U/S, labs)? Why? @ -See above What meds were considered but not given or refused? Why? @ -See above Did you discuss the management of the patient with other professionals (professionals i.e. , PA, MARKETING LIAISON, lab, RT, psych nurse, social insurance analyst, ticket writer, teacher, aoc plans intelligence officer, case monitor)? Give summary @ -Case discussed with Dr. Buckner who is willing to accept patients care. Case also discussed with who is willing to accept patients care and ICU Was smoking cessation discussed for >3mins.? @ -No Was critical care preformed (if so, how long)? @ -33 minutes Were there social determinants of health that impacted care today? How? (Homelessness, low income, unemployed, alcoholism, drug addiction, transportation, low edu. Level, literacy, decrease access to med. care, halfway, rehab)? @ -No Was there de-escalation of care discussed even if they declined (Discuss DNR or withdrawal of care, Hospice)? DNR status @ -No What co-morbidities impacted this encounter? (DM, HTN, Smoking, COPD, CAD, Cancer, CVA, ARF, Chemo, Hep., AIDS, mental health diagnosis, sleep apnea, morbid obesity)? @ -None Was patient admitted / discharged? Hospital course, mention meds given and route, prescriptions, significant lab abnormalities, going to OR and other pertinent info. @ -31-year-old female with history of malignant hypertension, ESRD presents to the ER for malaise 1 day. Patient presents with hypertension. Patient was here for similar situation approximately 3 weeks ago where she ended up having episodes of cardiac arrest. Prior charting was reviewed. There does not appear to be any obvious cause for why patient had cardiac arrest. Laboratory evaluation does not reveal any cause of patient's hypotension and bradycardia. Patient did not really respond to fluids, , atropine or Narcan. Patient eventually started on low-dose pressors. She did have a hemoglobin of 6.6. Patient given 1 unit of red blood cells. Patient likely has transient anemia due to dialysis. Patient's symptoms likely secondary to antihypertensive medications. Undiagnosed new problem with uncertain prognosis? @ -No Drug Therapy requiring intensive monitoring for toxicity (Heparin, Nitro, Insu salomón, Cardizem)? @ -No Were any procedures done? @ -No Diagnosis/symptom? Acute, or Chronic, or Acute on Chronic? Uncomplicated (without systemic symptoms) or Complicated (systemic symptoms)? @ -1. Acute complicated hypertension, no obvious source Side effects of treatment? @ -No Exacerbation, Progression, or Severe Exacerbation? @ -No Poses a threat to life or bodily function? How? (Chest pain, USA, MD, pneumonia, PE, COPD, DKA, ARF, appy, cholecystitis, CVA, Diverticulitis, Homicidal, Suicidal, threat to staff... and all critical care pts) @ -Yes - Related Data Home Medications Medication Instructions Recorded Confirmed Ergocalciferol (Vitamin D2) 1,250 mcg PO QMONTHLY 04/03/21 07/23/22 [Drisdol (50,000 Iu)] carvediloL [Coreg] 25 mg PO BID 04/03/21 07/23/22 Escitalopram [Lexapro] 20 mg PO DAILY 04/17/21 07/23/22 Aspirin 81 mg PO DAILY 12/06/21 07/23/22 NIFEdipine XL [Procardia XL] 60 mg PO BID 12/06/21 07/23/22 Melatonin [Melatonin Dissolving 10 mg PO HS 12/21/21 07/23/22 Tablet] Lidocaine-Prilocaine Cream [Emla 1 applic TOPICAL MOWEFR PRN 02/09/22 07/23/22 Cream 2.5%/2.5%] buPROPion SR [Wellbutrin SR] 150 mg PO BID 02/09/22 07/23/22 Cholecalciferol (Vitamin D3) 125 mcg PO QMONTHLY 06/19/22 07/23/22 [Vitamin D3 (125 MCG = 5,000 IU)] DULoxetine HCL [Cymbalta] 30 mg PO DAILY 06/19/22 07/23/22 Ondansetron [Zofran] 4 mg PO TID PRN 06/19/22 07/23/22 Pantoprazole Sodium [Protonix] 20 mg PO DAILY 06/19/22 07/23/22 Torsemide [Demadex] 20 mg PO BID 06/19/22 07/23/22 rOPINIRole HCL [Requip] 1 mg PO TID 06/19/22 07/23/22 Albuterol Inhaler [Ventolin Hfa 2 puff INHALATION RT-QID PRN 07/11/22 07/23/22 Inhaler] Insulin Aspart [NovoLOG Flexpen] 6 units SQ AC-TID 07/11/22 07/23/22 hydrALAZINE HCL [Apresoline] 100 mg PO BID 07/11/22 07/23/22 Previous Rx's Medication Instructions Recorded Glucagon Emergency Kit 1 mg IM ONCE PRN #1 kit 06/15/21 Cyanocobalamin [Vitamin B-12] 1,000 mcg PO DAILY #60 tab 09/06/21 Atorvastatin [Lipitor] 40 mg PO DAILY 30 Days #30 tab 10/13/21 Calcium Acetate [PhosLo] 667 mg PO TID-W/MEALS 30 Days #90 10/13/21 tab LORazepam [Ativan] 1 mg PO TID PRN #90 tab 12/09/21 hydrOXYzine HCL [Atarax] 25 mg PO TID PRN #90 tab 12/09/21 traZODone HCL [Desyrel] 50 mg PO HS PRN #30 tab 04/19/22 Darbepoetin Tate [Aranesp] 40 mcg SQ Q7D each 07/02/22 Insulin Detemir (Levemir) [Levemir] 12 unit SQ DAILY@0700 #30 each 07/02/22 cloNIDine HCL [Catapres] 0.3 mg PO TID #90 tab 07/19/22 Allergies Allergy/AdvReac Type Severity Reaction Status Date / Time Fish Containing Products Allergy Rash/Hives Verified 07/27/22 01:46 [Fish] iodine Allergy Anaphylaxis Verified 07/27/22 01:46 Review of Systems ROS Statement: Those systems with pertinent positive or pertinent negative responses have been documented in the HPI. ROS Other: All systems not noted in ROS Statement are negative. Past Medical History Past Medical History: CVA/TIA, Diabetes Mellitus, Dialysis, Eye Disorder, Hypertension, Renal Disease Additional Past Medical History / Comment(s): ESRD with hemodialysis M/W/F, IDDM type 1, DKA, neuropathy bilateral legs/feet, diabetic retinopathy/legally blind, RLS, gastritis, severe hypokalemia, fluid retention in abdomin/legs. History of Any Multi-Drug Resistant Organisms: None Reported Past Surgical History: Appendectomy, Section, Cholecystectomy Additional Past Surgical History / Comment(s): fistula left arm Past Anesthesia/Blood Transfusion Reactions: No Reported Reaction Past Psychological History: Anxiety, Depression Smoking Status: Never smoker Past Alcohol Use History: None Reported Past Drug Use History: None Reported - Past Family History Mother Family Medical History: Cancer, Hypertension Additional Family Medical History / Comment(s): Thyroid cancer, bipolar Father Family Medical History: Seizure Disorder Additional Family Medical History / Comment(s): Epilepsy Course Vital Signs 07/27/22 07/27/22 07/27/22 01:39 02:00 02:10 Temperature 97.3 F L Pulse Rate 51 L 51 L 49 L Respiratory 16 18 19 Rate Blood Pressure 80/54 93/61 75/50 O2 Sat by Pulse 100 98 89 L Oximetry 07/27/22 07/27/22 07/27/22 02:20 02:30 02:32 Temperature Pulse Rate 47 L 47 L Respiratory 12 14 16 Rate Blood Pressure 65/41 64/39 O2 Sat by Pulse 100 90 L Oximetry 07/27/22 07/27/22 07/27/22 02:40 02:50 03:00 Temperature Pulse Rate 49 L 47 L 46 L Respiratory 20 22 16 Rate Blood Pressure 79/46 76/46 73/46 O2 Sat by Pulse 97 100 100 Oximetry 07/27/22 07/27/22 03:03 03:10 Temperature Pulse Rate 45 L 46 L Respiratory 18 10 L Rate Blood Pressure 74/50 77/50 O2 Sat by Pulse 99 97 Oximetry Medical Decision Making - Lab Data Result diagrams: 07/27/22 01:50 07/27/22 01:50 Lab Results 07/27/22 07/27/22 07/27/22 Range/Units 01:50 01:50 01:50 WBC 4.3 (3.8-10.6) k/uL RBC 2.37 L (3.80-5.40) m/uL Hgb 6.6 L* (11.4-16.0) gm/dL Hct 19.9 L* (34.0-46.0) % MCV 84.0 (80.0-100.0) fL MCH 28.1 (25.0-35.0) pg MCHC 33.4 (31.0-37.0) g/dL RDW 14.5 (11.5-15.5) % Plt Count 222 (150-450) k/uL MPV 9.7 Neutrophils % 63 % Lymphocytes % 21 % Monocytes % 6 % Eosinophils % 7 % Basophils % 1 % Neutrophils # 2.7 (1.3-7.7) k/uL Lymphocytes # 0.9 L (1.0-4.8) k/uL Monocytes # 0.3 (0-1.0) k/uL Eosinophils # 0.3 (0-0.7) k/uL Basophils # 0.1 (0-0.2) k/uL PT 11.1 (9.0-12.0) sec INR 1.1 (<1.2) APTT 26.0 (22.0-30.0) sec Sodium 129 L (137-145) mmol/L Potassium 4.6 (3.5-5.1) mmol/L Chloride 88 L (98-107) mmol/L Carbon Dioxide 21 L (22-30) mmol/L Anion Gap 20 mmol/L BUN 40 H (7-17) mg/dL Creatinine 4.57 H (0.52-1.04) mg/dL Est GFR (CKD-EPI)AfAm 14 (>60 ml/min/1.73 sqM) Est GFR (CKD-EPI)NonAf 12 (>60 ml/min/1.73 sqM) Glucose 239 H (74-99) mg/dL POC Glucose (mg/dL) (70-110) mg/dL POC Glu Traffic Control Officer ID Plasma Lactic Acid Dio (0.7-2.0) mmol/L Calcium 8.4 (8.4-10.2) mg/dL Magnesium 2.1 (1.6-2.3) mg/dL Total Bilirubin 0.6 (0.2-1.3) mg/dL AST 53 H (14-36) U/L ALT 42 H (4-34) U/L Alkaline Phosphatase 273 H (38-126) U/L Troponin I (0.000-0.034) ng/mL NT-Pro-B Natriuret Pep pg/mL Total Protein 6.2 L (6.3-8.2) g/dL Albumin 3.9 (3.5-5.0) g/dL 07/27/22 07/27/22 07/27/22 Range/Units 01:50 01:50 01:50 WBC (3.8-10.6) k/uL RBC (3.80-5.40) m/uL Hgb (11.4-16.0) gm/dL Hct (34.0-46.0) % MCV (80.0-100.0) fL MCH (25.0-35.0) pg MCHC (31.0-37.0) g/dL RDW (11.5-15.5) % Plt Count (150-450) k/uL MPV Neutrophils % % Lymphocytes % % Monocytes % % Eosinophils % % Basophils % % Neutrophils # (1.3-7.7) k/uL Lymphocytes # (1.0-4.8) k/uL Monocytes # (0-1.0) k/uL Eosinophils # (0-0.7) k/uL Basophils # (0-0.2) k/uL PT (9.0-12.0) sec INR (<1.2) APTT (22.0-30.0) sec Sodium (137-145) mmol/L Potassium (3.5-5.1) mmol/L Chloride (98-107) mmol/L Carbon Dioxide (22-30) mmol/L Anion Gap mmol/L BUN (7-17) mg/dL Creatinine (0.52-1.04) mg/dL Est GFR (CKD-EPI)AfAm (>60 ml/min/1.73 sqM) Est GFR (CKD-EPI)NonAf (>60 ml/min/1.73 sqM) Glucose (74-99) mg/dL POC Glucose (mg/dL) (70-110) mg/dL POC Glu Traffic Control Officer ID Plasma Lactic Acid Dio 5.3 H* (0.7-2.0) mmol/L Calcium (8.4-10.2) mg/dL Magnesium (1.6-2.3) mg/dL Total Bilirubin (0.2-1.3) mg/dL AST (14-36) U/L ALT (4-34) U/L Alkaline Phosphatase (38-126) U/L Troponin I <0.012 (0.000-0.034) ng/mL NT-Pro-B Natriuret Pep 81632 pg/mL Total Protein (6.3-8.2) g/dL Albumin (3.5-5.0) g/dL 07/27/22 Range/Units 03:21 WBC (3.8-10.6) k/uL RBC (3.80-5.40) m/uL Hgb (11.4-16.0) gm/dL Hct (34.0-46.0) % MCV (80.0-100.0) fL MCH (25.0-35.0) pg MCHC (31.0-37.0) g/dL RDW (11.5-15.5) % Plt Count (150-450) k/uL MPV Neutrophils % % Lymphocytes % % Monocytes % % Eosinophils % % Basophils % % Neutrophils # (1.3-7.7) k/uL Lymphocytes # (1.0-4.8) k/uL Monocytes # (0-1.0) k/uL Eosinophils # (0-0.7) k/uL Basophils # (0-0.2) k/uL PT (9.0-12.0) sec INR (<1.2) APTT (22.0-30.0) sec Sodium (137-145) mmol/L Potassium (3.5-5.1) mmol/L Chloride (98-107) mmol/L Carbon Dioxide (22-30) mmol/L Anion Gap mmol/L BUN (7-17) mg/dL Creatinine (0.52-1.04) mg/dL Est GFR (CKD-EPI)AfAm (>60 ml/min/1.73 sqM) Est GFR (CKD-EPI)NonAf (>60 ml/min/1.73 sqM) Glucose (74-99) mg/dL POC Glucose (mg/dL) 252 H (70-110) mg/dL POC Glu Traffic Control Officer ID Sheffield, Hellen Plasma Lactic Acid Dio (0.7-2.0) mmol/L Calcium (8.4-10.2) mg/dL Magnesium (1.6-2.3) mg/dL Total Bilirubin (0.2-1.3) mg/dL AST (14-36) U/L ALT (4-34) U/L Alkaline Phosphatase (38-126) U/L Troponin I (0.000-0.034) ng/mL NT-Pro-B Natriuret Pep pg/mL Total Protein (6.3-8.2) g/dL Albumin (3.5-5.0) g/dL Disposition Clinical Impression: Hypotension Disposition: ADMITTED IP TO THIS [facility] Condition: Critical Decision Time: 04:09
[2022-07-27] MEDS ORDERED: CALCIUM GLUCONATE IN NACL 1 GM in SALINE 1 100ML.BAG IVPB ONE (02:00)
[2022-07-27 02:09] LABS: Basophils # (A) 0.1 k/uL (0-0.2); Basophils % (A) 1 %; Eosinophils # (A) 0.3 k/uL (0-0.7); Eosinophils % (A) 7 %; Lymphocytes # (A) 0.9 k/uL (1.0-4.8); Lymphocytes % (A) 21 %; MCH 28.1 pg (25.0-35.0); MCHC 33.4 g/dL (31.0-37.0); Mean Platelet Volume 9.7; Monocytes # (A) 0.3 k/uL (0-1.0); Monocytes % (A) 6 %; Neutrophils # (A) 2.7 k/uL (1.3-7.7); Neutrophils % (A) 63 %; Platelet Count 222 k/uL (150-450); RBC 2.37 m/uL (3.80-5.40); RDW 14.5 % (11.5-15.5); WBC 4.3 k/uL (3.8-10.6)
[2022-07-27 02:24] LABS: Albumin 3.9 g/dL (3.5-5.0); Calcium 8.4 mg/dL (8.4-10.2); Magnesium 2.1 mg/dL (1.6-2.3); Potassium 4.6 mmol/L (3.5-5.1); Total Bilirubin 0.6 mg/dL (0.2-1.3); Total Protein 6.2 g/dL (6.3-8.2)
[2022-07-27] MEDS ORDERED: NALOXONE 0.4 MG/ML 1 ML VIAL IVP STA (02:32)
[2022-07-27] MEDS ORDERED: ATROPINE SULFATE 0.1 MG/ML 10ML SYRINGE IV STA (02:33)
[2022-07-27 02:42] LABS: INR 1.1 (<1.2); Prothrombin Time 11.1 sec (9.0-12.0)
--- NOTE | 2022-07-27 02:53 | XR ---
EXAMINATION TYPE: XR chest 1V portable DATE OF EXAM: 07/27/2022 COMPARISON: NONE HISTORY: Hypotension TECHNIQUE: Single view FINDINGS: Heart is enlarged. There is slight blunting of the costophrenic angles. There are chest josiah ds. There is mild pulmonary congestion and interstitial edema. IMPRESSION: Cardiomegaly and mild pulmonary interstitial edema. Pulmonary congestion increased compar ed to the old exam.
[2022-07-27 03:11] LABS: HCT 19.9 % (34.0-46.0); HGB 6.6 gm/dL (11.4-16.0)
[2022-07-27 03:23] LABS: Glucose,Whole Blood 252 mg/dL (70-110)
[2022-07-27] MEDS ORDERED: NOREPINEPHRINE 4 MG in SODIUM CHLORIDE 0.9% 250 ML IV ONE (03:40)
[2022-07-27] MEDS ORDERED: NALOXONE 0.4 MG/ML 1 ML VIAL IV PRN (03:43)
[2022-07-27] MEDS ORDERED: VANCOMYCIN IV PER PHARMACY 1 EACH MISC MISCELLANE PRN (04:54)
[2022-07-27] MEDS ORDERED: PIPERACILLIN-TAZOBACTAM 3.375 GM in SODIUM CHLORIDE 0.9% 100 ML IVPB STA (04:54)
[2022-07-27] MEDS ORDERED: VANCOMYCIN 1,000 MG in SODIUM CHLORIDE 0.9% 250 ML IVPB ONE (05:30)
[2022-07-27 06:58] LABS: Glucose,Whole Blood 264 mg/dL (70-110)
--- NOTE | 2022-07-27 10:12 | P.CRDCN ---
History of Present Illness Consult date: 07/27/22 History of present illness: The patient is a very pleasant 31-year-old female patient with a past medical history significant for end stage renal disease on dialysis who was admitted to the hospital because of low blood pressure. The patient was monitoring her pressure at home. She did not feel well yesterday beach checked her pressure and that came in to be low with a systolic pressure around 70 mmHg. At that point she was not feeling well. She was feeling weak and dizzy and tired but no loss of consciousness and no syncope. No symptoms of chest pain or chest discomfort or any shortness of breath. She decided to come to the emergency department with further investigation was performed including a CBC and that showed low hemoglobin. The patient subsequently was given blood with improvement in hemoglobin. She did require norepinephrine for sometime but currently she is off norepinephrine. No symptoms of chest pain or chest discomfort. Currently she is hemodynamic stable and not on any vasopressors. As a matter of fact she is going to be started back on calcium channel rox would continue monitoring her blood pressure and heart rate. Hemoglobin this morning is stable. Prior echo from 2021 showed normal right ventricular systolic function was no significant valvular abnormalities The examination is remarkable for regular rhythm with a systolic murmur and diminished breathing sounds bilaterally and no lower extremities edema noted Assessment Hypotension Anemia End-stage renal disease Multiple comorbid conditions Plan Continue the current medical regimen Continue monitoring the hemoglobin Restart the patient back on calcium channel rox and monitor the heart rate and blood pressure Follow-up with the patient Limited echocardiogram Past Medical History Past Medical History: CVA/TIA, Diabetes Mellitus, Dialysis, Eye Disorder, Hypertension, Renal Disease Additional Past Medical History / Comment(s): ESRD with hemodialysis M/W/F, IDDM type 1, DKA, neuropathy bilateral legs/feet, diabetic retinopathy/legally blind, RLS, gastritis, severe hypokalemia, fluid retention in abdomin/legs. History of Any Multi-Drug Resistant Organisms: None Reported Past Surgical History: Appendectomy, Section, Cholecystectomy Additional Past Surgical History / Comment(s): fistula left arm Past Anesthesia/Blood Transfusion Reactions: No Reported Reaction Additional Past Anesthesia/Blood Transfusion Reaction / Comment(s): Last PRBC transfusion 07/27/22 Past Psychological History: Anxiety, Depression Additional Psychological History / Comment(s): Pt resides with her father and pt's 3 children. Pt gets to dialysis by grandparents/family or cab. Smoking Status: Never smoker Past Alcohol Use History: None Reported Past Drug Use History: None Reported - Past Family History Mother History Unknown: Yes Family Medical History: Cancer, Hypertension Additional Family Medical History / Comment(s): Thyroid cancer, bipolar Father History Unknown: Yes Family Medical History: Seizure Disorder Additional Family Medical History / Comment(s): Epilepsy Medications and Allergies Home Medications Medication Instructions Recorded Confirmed Type carvediloL [Coreg] 25 mg PO BID 04/03/21 07/27/22 History Escitalopram [Lexapro] 20 mg PO DAILY 04/17/21 07/27/22 History Glucagon Emergency Kit 1 mg IM ONCE PRN #1 kit 06/15/21 07/27/22 Rx Cyanocobalamin [Vitamin B-12] 1,000 mcg PO DAILY #60 tab 09/06/21 07/27/22 Rx Atorvastatin [Lipitor] 40 mg PO DAILY 30 Days #30 tab 10/13/21 07/27/22 Rx Calcium Acetate [PhosLo] 667 mg PO TID-W/MEALS 30 Days #90 10/13/21 07/27/22 Rx tab Aspirin 81 mg PO DAILY 12/06/21 07/27/22 History NIFEdipine XL [Procardia XL] 60 mg PO BID 12/06/21 07/27/22 History LORazepam [Ativan] 1 mg PO TID PRN #90 tab 12/09/21 07/27/22 Rx hydrOXYzine HCL [Atarax] 25 mg PO TID PRN #90 tab 12/09/21 07/27/22 Rx Melatonin [Melatonin Dissolving 10 mg PO HS 12/21/21 07/27/22 History Tablet] Lidocaine-Prilocaine Cream [Emla 1 applic TOPICAL MOWEFR PRN 02/09/22 07/27/22 History Cream 2.5%/2.5%] buPROPion SR [Wellbutrin SR] 150 mg PO BID 02/09/22 07/27/22 History traZODone HCL [Desyrel] 50 mg PO HS PRN #30 tab 04/19/22 07/27/22 Rx DULoxetine HCL [Cymbalta] 30 mg PO DAILY 06/19/22 07/27/22 History Ondansetron [Zofran] 4 mg PO TID PRN 06/19/22 07/27/22 History Pantoprazole Sodium [Protonix] 20 mg PO DAILY 06/19/22 07/27/22 History Torsemide [Demadex] 20 mg PO BID 06/19/22 07/27/22 History rOPINIRole HCL [Requip] 1 mg PO TID 06/19/22 07/27/22 History Darbepoetin Tate [Aranesp] 40 mcg SQ Q7D each 07/02/22 07/27/22 Rx Insulin Detemir (Levemir) [Levemir] 12 unit SQ DAILY@0700 #30 each 07/02/22 07/27/22 Rx Albuterol Inhaler [Ventolin Hfa 2 puff INHALATION RT-QID PRN 07/11/22 07/27/22 History Inhaler] Insulin Aspart [NovoLOG Flexpen] 6 units SQ AC-TID 07/11/22 07/27/22 History hydrALAZINE HCL [Apresoline] 100 mg PO BID 07/11/22 07/27/22 History cloNIDine HCL [Catapres] 0.3 mg PO TID #90 tab 07/19/22 07/27/22 Rx Vitamin D 1,250mcg (Unknown) 1,250 mcg PO QMONTHLY 07/27/22 07/27/22 History Allergies Allergy/AdvReac Type Severity Reaction Status Date / Time Fish Containing Products Allergy Rash/Hives Verified 07/27/22 07:00 [Fish] iodine Allergy Anaphylaxis Verified 07/27/22 07:00 Physical Exam Vitals: Vital Signs Temp Pulse Resp BP Pulse Ox 07/27/22 09:30 62 18 139/74 95 07/27/22 09:00 60 18 133/67 94 L 07/27/22 08:30 56 L 6 L 138/70 99 07/27/22 08:26 97.9 F 56 L 21 105/58 98 07/27/22 07:00 50 L 20 97/66 100 07/27/22 06:35 97.8 F 52 L 16 107/68 94 L 07/27/22 06:15 96.8 F L 52 L 16 102/59 94 L 07/27/22 04:40 45 L 19 76/51 99 07/27/22 04:30 43 L 28 H 71/48 94 L 07/27/22 04:20 43 L 25 H 75/45 96 07/27/22 04:10 43 L 20 69/47 100 07/27/22 04:00 43 L 17 71/41 100 07/27/22 03:50 44 L 22 76/44 100 07/27/22 03:40 45 L 12 71/50 100 07/27/22 03:30 45 L 12 72/49 100 07/27/22 03:20 46 L 15 72/49 78 L 07/27/22 03:10 46 L 10 L 77/50 97 07/27/22 03:03 45 L 18 74/50 99 07/27/22 03:00 46 L 16 73/46 100 07/27/22 02:50 47 L 22 76/46 100 07/27/22 02:40 49 L 20 79/46 97 07/27/22 02:32 16 07/27/22 02:30 47 L 14 64/39 90 L 07/27/22 02:20 47 L 12 65/41 100 07/27/22 02:10 49 L 19 75/50 89 L 07/27/22 02:00 51 L 18 93/61 98 07/27/22 01:39 97.3 F L 51 L 16 80/54 100 Intake and Output 07/26/22 07/27/22 07/27/22 22:59 06:59 14:59 Intake Total 49.164 305.609 Balance 49.164 305.609 Intake: Intake, IV Titration 49.164 29.609 Amount Norepinephrine 4 mg In 49.164 4.609 Sodium Chloride 0.9% 250 ml @ 0.03 MCG/KG/MIN 5. 185 mls/hr IV .Q24H ONE Rx#:[id number] Piperacillin-Tazobactam 3 25 .375 gm In Sodium Chloride 0.9% 100 ml @ 200 mls/hr IVPB ONCE STA Rx#:[id number] Blood Product 0 276 Rc Pheresis As-3 Unit 0 276 [id number] Other: # Voids 0 Weight 45.359 kg 45.6 kg Results 07/27/22 01:50 07/27/22 01:50 Cardiac Enzymes 07/27/22 07/27/22 Range/Units 01:50 01:50 AST 53 H (14-36) U/L Troponin I <0.012 (0.000-0.034) ng/mL Coagulation 07/27/22 Range/Units 01:50 PT 11.1 (9.0-12.0) sec APTT 26.0 (22.0-30.0) sec CBC 07/27/22 Range/Units 01:50 WBC 4.3 (3.8-10.6) k/uL RBC 2.37 L (3.80-5.40) m/uL Hgb 6.6 L* (11.4-16.0) gm/dL Hct 19.9 L* (34.0-46.0) % Plt Count 222 (150-450) k/uL Comprehensive Metabolic Panel 07/27/22 Range/Units 01:50 Sodium 129 L (137-145) mmol/L Potassium 4.6 (3.5-5.1) mmol/L Chloride 88 L (98-107) mmol/L Carbon Dioxide 21 L (22-30) mmol/L BUN 40 H (7-17) mg/dL Creatinine 4.57 H (0.52-1.04) mg/dL Glucose 239 H (74-99) mg/dL Calcium 8.4 (8.4-10.2) mg/dL AST 53 H (14-36) U/L ALT 42 H (4-34) U/L Alkaline Phosphatase 273 H (38-126) U/L Total Protein 6.2 L (6.3-8.2) g/dL Albumin 3.9 (3.5-5.0) g/dL Current Medications Generic Name Dose Route Start Last Admin Trade Name Freq PRN Reason Stop Dose Admin Calcium Acetate 667 mg 07/27/22 12:30 Calcium Acetate 667 Mg Tab PO TID-W/MEALS CHAD Diphenhydramine HCl 50 mg 07/27/22 09:43 Diphenhydramine 50 Mg/Ml 1 Ml Vial IVP MoWeFr PRN Allergic Reaction Famotidine 20 mg 07/27/22 21:00 Famotidine 20 Mg Tab PO BID CHAD Norepinephrine Bitartrate 4 mg 254 mls @ 5.185 mls/hr 07/27/22 03:40 07/27/22 07:40 / Sodium Chloride IV 07/28/22 03:39 0 mcg/kg/min .Q24H ONE 0 mls/hr Titration Protocol 0.03 MCG/KG/MIN Vancomycin HCl 750 mg/ Sodium 250 mls @ 125 mls/hr 07/28/22 05:00 Chloride IVPB 07/28/22 06:59 ONCE ONE Miscellaneous Information 1 each 07/27/22 04:54 Vancomycin Iv Per Pharmacy 1 Each Misc MISCELLANE DIRECTED PRN Per Protocol Protocol Naloxone HCl 0.2 mg 07/27/22 03:43 Naloxone 0.4 Mg/Ml 1 Ml Vial IV Q2M PRN Opioid Reversal Intake and Output 07/26/22 07/27/22 07/27/22 22:59 06:59 14:59 Intake Total 49.164 305.609 Balance 49.164 305.609 Intake: Intake, IV Titration 49.164 29.609 Amount Norepinephrine 4 mg In 49.164 4.609 Sodium Chloride 0.9% 250 ml @ 0.03 MCG/KG/MIN 5. 185 mls/hr IV .Q24H ONE Rx#:[id number] Piperacillin-Tazobactam 3 25 .375 gm In Sodium Chloride 0.9% 100 ml @ 200 mls/hr IVPB ONCE STA Rx#:[id number] Blood Product 0 276 Rc Pheresis As-3 Unit 0 276 [id number] Other: # Voids 0 Weight 45.359 kg 45.6 kg Patient Weight 07/28/22 06:59 Weight 45.6 kg 07/27/22 01:50 07/27/22 01:50
[2022-07-27] MEDS ORDERED: DESMOPRESSIN ACETATE 14 MCG in SODIUM CHLORIDE 0.9% 50 ML IVPB ONE (10:21)
--- NOTE | 2022-07-27 10:23 | P.NPCON ---
History of Present Illness - Reason for Consult end stage renal disease - History of Present Illness Reason for consultation: End-stage renal disease History of present illness: Patient is a 31-year-old female seen in Sedation for end-stage renal disease. She is maintained on hemodialysis on Monday schedule. Patient states she went to hemodialysis on Monday. She states she was sick over the weekend and had fever as well as symptoms of gastroenteritis including nausea vomiting and diarrhea. Patient states symptoms are not resolved. Patient says sure blood pressure at home was low in the systolic 70s and she came to the hospital. She denies any syncopal episodes. She did receive 2 L of normal saline bolus and blood pressure is now improved to 139/74. She is on 2 L nasal cannula. Chest x-ray showed vascular congestion. She is scheduled to undergo dialysis today. Potassium was normal. Blood sugars are in the 200s. Patient is awake and alert. Denies chest pain or shortness of breath at this time. Patient has brittle diabetes. Hemoglobin was 6.6 and she received unit of blood. She denies any active bleeding. Vital signs are stable. General: No acute distress. HEENT: Head exam is unremarkable. LUNGS: No audible rhonchi or wheezes. HEART: Rate and Rhythm are regular. ABDOMEN: Soft, no distention. EXTREMITITES: No edema. Past Medical History Past Medical History: CVA/TIA, Diabetes Mellitus, Dialysis, Eye Disorder, Hy pertension, Renal Disease Additional Past Medical History / Comment(s): ESRD with hemodialysis M/W/F, IDDM type 1, DKA, neuropathy bilateral legs/feet, diabetic retinopathy/legally blind, RLS, gastritis, severe hypokalemia, fluid retention in abdomin/legs. History of Any Multi-Drug Resistant Organisms: None Reported Past Surgical History: Appendectomy, Section, Cholecystectomy Additional Past Surgical History / Comment(s): fistula left arm Past Anesthesia/Blood Transfusion Reactions: No Reported Reaction Additional Past Anesthesia/Blood Transfusion Reaction / Comment(s): Last PRBC transfusion 07/27/22 Past Psychological History: Anxiety, Depression Additional Psychological History / Comment(s): Pt resides with her father and pt's 3 children. Pt gets to dialysis by grandparents/family or cab. Smoking Status: Never smoker Past Alcohol Use History: None Reported Past Drug Use History: None Reported - Past Family History Mother History Unknown: Yes Family Medical History: Cancer, Hypertension Additional Family Medical History / Comment(s): Thyroid cancer, bipolar Father History Unknown: Yes Family Medical History: Seizure Disorder Additional Family Medical History / Comment(s): Epilepsy Medications and Allergies Home Medications Medication Instructions Recorded Confirmed Type carvediloL [Coreg] 25 mg PO BID 04/03/21 07/27/22 History Escitalopram [Lexapro] 20 mg PO DAILY 04/17/21 07/27/22 History Glucagon Emergency Kit 1 mg IM ONCE PRN #1 kit 06/15/21 07/27/22 Rx Cyanocobalamin [Vitamin B-12] 1,000 mcg PO DAILY #60 tab 09/06/21 07/27/22 Rx Atorvastatin [Lipitor] 40 mg PO DAILY 30 Days #30 tab 10/13/21 07/27/22 Rx Calcium Acetate [PhosLo] 667 mg PO TID-W/MEALS 30 Days #90 10/13/21 07/27/22 Rx tab Aspirin 81 mg PO DAILY 12/06/21 07/27/22 History NIFEdipine XL [Procardia XL] 60 mg PO BID 12/06/21 07/27/22 History LORazepam [Ativan] 1 mg PO TID PRN #90 tab 12/09/21 07/27/22 Rx hydrOXYzine HCL [Atarax] 25 mg PO TID PRN #90 tab 12/09/21 07/27/22 Rx Melatonin [Melatonin Dissolving 10 mg PO HS 12/21/21 07/27/22 History Tablet] Lidocaine-Prilocaine Cream [Emla 1 applic TOPICAL MOWEFR PRN 02/09/22 07/27/22 History Cream 2.5%/2.5%] buPROPion SR [Wellbutrin SR] 150 mg PO BID 02/09/22 07/27/22 History traZODone HCL [Desyrel] 50 mg PO HS PRN #30 tab 04/19/22 07/27/22 Rx DULoxetine HCL [Cymbalta] 30 mg PO DAILY 06/19/22 07/27/22 History Ondansetron [Zofran] 4 mg PO TID PRN 06/19/22 07/27/22 History Pantoprazole Sodium [Protonix] 20 mg PO DAILY 06/19/22 07/27/22 History Torsemide [Demadex] 20 mg PO BID 06/19/22 07/27/22 History rOPINIRole HCL [Requip] 1 mg PO TID 06/19/22 07/27/22 History Darbepoetin Tate [Aranesp] 40 mcg SQ Q7D each 07/02/22 07/27/22 Rx Insulin Detemir (Levemir) [Levemir] 12 unit SQ DAILY@0700 #30 each 07/02/22 07/27/22 Rx Albuterol Inhaler [Ventolin Hfa 2 puff INHALATION RT-QID PRN 07/11/22 07/27/22 History Inhaler] Insulin Aspart [NovoLOG Flexpen] 6 units SQ AC-TID 07/11/22 07/27/22 History hydrALAZINE HCL [Apresoline] 100 mg PO BID 07/11/22 07/27/22 History cloNIDine HCL [Catapres] 0.3 mg PO TID #90 tab 07/19/22 07/27/22 Rx Vitamin D 1,250mcg (Unknown) 1,250 mcg PO QMONTHLY 07/27/22 07/27/22 History Allergies Allergy/AdvReac Type Severity Reaction Status Date / Time Fish Containing Products Allergy Rash/Hives Verified 07/27/22 07:00 [Fish] iodine Allergy Anaphylaxis Verified 07/27/22 07:00 Physical Exam Vitals: Vital Signs Temp Pulse Resp BP Pulse Ox 07/27/22 09:30 62 18 139/74 95 07/27/22 09:00 60 18 133/67 94 L 07/27/22 08:30 56 L 6 L 138/70 99 07/27/22 08:26 97.9 F 56 L 21 105/58 98 07/27/22 07:00 50 L 20 97/66 100 07/27/22 06:35 97.8 F 52 L 16 107/68 94 L 07/27/22 06:15 96.8 F L 52 L 16 102/59 94 L 07/27/22 04:40 45 L 19 76/51 99 07/27/22 04:30 43 L 28 H 71/48 94 L 07/27/22 04:20 43 L 25 H 75/45 96 07/27/22 04:10 43 L 20 69/47 100 07/27/22 04:00 43 L 17 71/41 100 07/27/22 03:50 44 L 22 76/44 100 07/27/22 03:40 45 L 12 71/50 100 07/27/22 03:30 45 L 12 72/49 100 07/27/22 03:20 46 L 15 72/49 78 L 07/27/22 03:10 46 L 10 L 77/50 97 07/27/22 03:03 45 L 18 74/50 99 07/27/22 03:00 46 L 16 73/46 100 07/27/22 02:50 47 L 22 76/46 100 07/27/22 02:40 49 L 20 79/46 97 07/27/22 02:32 16 07/27/22 02:30 47 L 14 64/39 90 L 07/27/22 02:20 47 L 12 65/41 100 07/27/22 02:10 49 L 19 75/50 89 L 07/27/22 02:00 51 L 18 93/61 98 07/27/22 01:39 97.3 F L 51 L 16 80/54 100 Intake and Output 07/26/22 07/27/22 07/27/22 22:59 06:59 14:59 Intake Total 49.164 305.609 Balance 49.164 305.609 Intake: Intake, IV Titration 49.164 29.609 Amount Norepinephrine 4 mg In 49.164 4.609 Sodium Chloride 0.9% 250 ml @ 0.03 MCG/KG/MIN 5. 185 mls/hr IV .Q24H ONE Rx#:[id number] Piperacillin-Tazobactam 3 25 .375 gm In Sodium Chloride 0.9% 100 ml @ 200 mls/hr IVPB ONCE STA Rx#:[id number] Blood Product 0 276 Rc Pheresis As-3 Unit 0 276 [id number] Other: # Voids 0 Weight 45.359 kg 45.6 kg Results - Lab Results Most recent lab results Calcium 8.4 mg/dL (8.4-10.2) 07/27/22 01:50 Magnesium 2.1 mg/dL (1.6-2.3) 07/27/22 01:50 07/27/22 01:50 07/27/22 01:50 Assessment and Plan Plan: Assessment: 1. End-stage renal disease maintained on hemodialysis on Monday schedule. 2. Acute blood loss anemia status post blood transition. No active bleeding. 3. 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 4. Hypertension with chronic kidney disease. Currently controlled. 5. Brittle diabetes. Plan: Hemodialysis today. DDAVP 1 today. Add Aranesp. Resume home antihypertensives gradually but hold for systolic blood pressure less than 120 or heart rate less than 60. Thank you for the consultation. I will continue to follow the patient with you during her hospital stay.
[2022-07-27] MEDS ORDERED: traZODone HCL 50 MG TAB PO PRN (10:32)
[2022-07-27] MEDS ORDERED: diphenhydrAMINE 50 MG/ML 1 ML VIAL IVP PRN (10:35)
[2022-07-27] MEDS ORDERED: VITAMIN D PO SCH (10:45)
[2022-07-27] MEDS ORDERED: DARBEPOETIN ALFA 40 MCG/0.4 ML SYRINGE SQ SCH (10:45)
[2022-07-27] MEDS: HYDROmorphone 1 MG/ML 1 ML SYRINGE IVP PRN ×2 (11:25→18:23)
--- NOTE | 2022-07-27 11:25 | P.CNPUL ---
History of Present Illness Consult date: 07/27/22 Requesting physician: Mani Nunes Reason for consult: other (ICU management) Chief complaint: Generalized weakness History of present illness: I'm seeing this patient in new consultation today 07/27/2022 in the intensive care unit. This is a pleasant 31-year-old white female with past medical history of end-stage renal disease, receiving hemodialysis normally Monday, type 1 diabetes mellitus, brittle glucose control, multiple previous ICU admissions for DKA, previous cardiac arrests related to hyperkalemia, CVA, diabetic retinopathy, legally blind, hypertension, neur opathy. Patient did have a recent ICU admission on 07/11/2022 for hypotension and ultimately cardiac arrest related to hyperkalemia. Patient did make a full recovery, and was discharged home on 07/19/2022. Prior to this admission, patient was at home, with chief complaint of generalized weakness. She did take her blood pressure which was low. Apparently, patient may have taken more of her antihypertensive medications than ordered. Patient denies any suicidal ideation. Patient was brought to [facility] where she was found to be hypotensive and bradycardic, she was given one dose of atropine and started transiently on dopamine infusion. Dopamine infusion was discontinued, and p atient was started on a norepinephrine infusion. This is currently paused. Patient's ECG on arrival showed sinus bradycardia at 44 bpm. Heart rate is currently normal sinus rhythm in the 60s. Patient is currently resting in bed, on 2 L nasal cannula, in no acute distress. Patient's chest x-ray on arrival showed some cardiomegaly and mild pulmonary interstitial edema. Patient's BMP on arrival showed a sodium 129, potassium 4.6, chloride 88, serum CO2 21, BUN 40, creatinine 4.57, glucose 239. Patient's lactic was elevated at 7.1 and is trending down currently 6.1. Patient was given a 1 L normal saline bolus in the ER. BNP was elevated at 85,900. Echocardiogram is pending. LFTs were mildly elevated. No IV maintenance fluids infusing using. Blood glucose is being managed by admitting physician. Currently is receiving scheduled NovoLog 6 units before meals, Levemir 12 units daily. Patient's hemoglobin on arrival was low at 6.6, and is chronically low. Patient has received 1 unit PRBC. No signs of overt signs of bleeding. Patient's WBC count is 4.3, platelets 222,000. Patient denies cough, shortness breath, fever, chest pain. Patient is empirically covered on vancomycin. Afebrile. Vital signs are stable. Review of Systems REVIEW OF SYSTEMS: CONSTITUTIONAL: Denies any recent significant weight loss or weight gain. Reports generalized weakness EYES: Legally blind EARS, NOSE, MOUTH, THROAT: Denies headaches, denies sore throat. CARDIOVASCULAR: Denies chest pain, palpitations or syncopal episodes. RESPIRATORY: Denies shortness of breath, cough, congestion or hemoptysis. GASTROINTESTINAL: Denies change in appetite, abdominal pain, nausea and vomiting, or diarrhea GENITOURINARY: Denies hematuria, denies infections. MUSKULOSKELETAL: Denies pain, denies swelling. INTEGUMENTARY: Denies rash, denies eczema. NEUROLOGICAL: Denies recent memory loss, no recent seizure activity. PSYCHIATRIC: Denies anxiety, denies depression. HEMATOLOGIC/LYMPHATIC: Denies anemia, denies enlarged lymph node Past Medical History Past Medical History: CVA/TIA, Diabetes Mellitus, Dialysis, Eye Disorder, Hypertension, Renal Disease Additional Past Medical History / Comment(s): cardiac arrest, respiratory failure requiring mechanical ventilation, ESRD with hemodialysis M/W/F, IDDM typ e 1, DKA, neuropathy bilateral legs/feet, diabetic retinopathy/legally blind, RLS, gastritis, severe hypokalemia, fluid retention in abdomin/legs. History of Any Multi-Drug Resistant Organisms: None Reported Past Surgical History: Appendectomy, Section, Cholecystectomy Additional Past Surgical History / Comment(s): fistula left arm Past Anesthesia/Blood Transfusion Reactions: No Reported Reaction Additional Past Anesthesia/Blood Transfusion Reaction / Comment(s): Last PRBC transfusion 07/27/22 Past Psychological History: Anxiety, Depression Additional Psychological History / Comment(s): Pt resides with her father and pt's 3 children. Pt gets to dialysis by grandparents/family or cab. Smoking Status: Never smoker Past Alcohol Use History: None Reported Past Drug Use History: None Reported - Past Family History Mother History Unknown: Yes Family Medical History: Cancer, Hypertension Additional Family Medical History / Comment(s): Thyroid cancer, bipolar Father History Unknown: Yes Family Medical History: Seizure Disorder Additional Family Medical History / Comment(s): Epilepsy Medications and Allergies Home Medications Medication Instructions Recorded Confirmed Type carvediloL [Coreg] 25 mg PO BID 04/03/21 07/27/22 History Escitalopram [Lexapro] 20 mg PO DAILY 04/17/21 07/27/22 History Glucagon Emergency Kit 1 mg IM ONCE PRN #1 kit 06/15/21 07/27/22 Rx Cyanocobalamin [Vitamin B-12] 1,000 mcg PO DAILY #60 tab 09/06/21 07/27/22 Rx Atorvastatin [Lipitor] 40 mg PO DAILY 30 Days #30 tab 10/13/21 07/27/22 Rx Calcium Acetate [PhosLo] 667 mg PO TID-W/MEALS 30 Days #90 10/13/21 07/27/22 Rx tab Aspirin 81 mg PO DAILY 12/06/21 07/27/22 History NIFEdipine XL [Procardia XL] 60 mg PO BID 12/06/21 07/27/22 History LORazepam [Ativan] 1 mg PO TID PRN #90 tab 12/09/21 07/27/22 Rx hydrOXYzine HCL [Atarax] 25 mg PO TID PRN #90 tab 12/09/21 07/27/22 Rx Melatonin [Melatonin Dissolving 10 mg PO HS 12/21/21 07/27/22 History Tablet] Lidocaine-Prilocaine Cream [Emla 1 applic TOPICAL MOWEFR PRN 02/09/22 07/27/22 History Cream 2.5%/2.5%] buPROPion SR [Wellbutrin SR] 150 mg PO BID 02/09/22 07/27/22 History traZODone HCL [Desyrel] 50 mg PO HS PRN #30 tab 04/19/22 07/27/22 Rx DULoxetine HCL [Cymbalta] 30 mg PO DAILY 06/19/22 07/27/22 History Ondansetron [Zofran] 4 mg PO TID PRN 06/19/22 07/27/22 History Pantoprazole Sodium [Protonix] 20 mg PO DAILY 06/19/22 07/27/22 History Torsemide [Demadex] 20 mg PO BID 06/19/22 07/27/22 History rOPINIRole HCL [Requip] 1 mg PO TID 06/19/22 07/27/22 History Darbepoetin Tate [Aranesp] 40 mcg SQ Q7D each 07/02/22 07/27/22 Rx Insulin Detemir (Levemir) [Levemir] 12 unit SQ DAILY@0700 #30 each 07/02/22 07/27/22 Rx Albuterol Inhaler [Ventolin Hfa 2 puff INHALATION RT-QID PRN 07/11/22 07/27/22 History Inhaler] Insulin Aspart [NovoLOG Flexpen] 6 units SQ AC-TID 07/11/22 07/27/22 History hydrALAZINE HCL [Apresoline] 100 mg PO BID 07/11/22 07/27/22 History cloNIDine HCL [Catapres] 0.3 mg PO TID #90 tab 07/19/22 07/27/22 Rx Vitamin D 1,250mcg (Unknown) 1,250 mcg PO QMONTHLY 07/27/22 07/27/22 History Allergies Allergy/AdvReac Type Severity Reaction Status Date / Time Fish Containing Products Allergy Rash/Hives Verified 07/27/22 07:00 [Fish] iodine Allergy Anaphylaxis Verified 07/27/22 07:00 Physical Exam Vitals: Vital Signs Temp Pulse Resp BP Pulse Ox 07/27/22 10:00 64 24 139/74 95 07/27/22 09:30 62 18 139/74 95 07/27/22 09:00 60 18 133/67 94 L 07/27/22 08:30 56 L 6 L 138/70 99 07/27/22 08:26 97.9 F 56 L 21 105/58 98 07/27/22 07:00 50 L 20 97/66 100 07/27/22 06:35 97.8 F 52 L 16 107/68 94 L 07/27/22 06:15 96.8 F L 52 L 16 102/59 94 L 07/27/22 04:40 45 L 19 76/51 99 07/27/22 04:30 43 L 28 H 71/48 94 L 07/27/22 04:20 43 L 25 H 75/45 96 07/27/22 04:10 43 L 20 69/47 100 07/27/22 04:00 43 L 17 71/41 100 07/27/22 03:50 44 L 22 76/44 100 07/27/22 03:40 45 L 12 71/50 100 07/27/22 03:30 45 L 12 72/49 100 07/27/22 03:20 46 L 15 72/49 78 L 07/27/22 03:10 46 L 10 L 77/50 97 07/27/22 03:03 45 L 18 74/50 99 07/27/22 03:00 46 L 16 73/46 100 07/27/22 02:50 47 L 22 76/46 100 07/27/22 02:40 49 L 20 79/46 97 07/27/22 02:32 16 07/27/22 02:30 47 L 14 64/39 90 L 07/27/22 02:20 47 L 12 65/41 100 07/27/22 02:10 49 L 19 75/50 89 L 07/27/22 02:00 51 L 18 93/61 98 07/27/22 01:39 97.3 F L 51 L 16 80/54 100 Intake and Output 07/26/22 07/27/22 07/27/22 22:59 06:59 14:59 Intake Total 49.164 380.609 Balance 49.164 380.609 Intake: IV 100 Piperacillin-Tazobactam 3 100 .375 gm In Sodium Chloride 0.9% 100 ml @ 200 mls/hr IVPB ONCE STA Rx#:[id number] Intake, IV Titration 49.164 4.609 Amount Norepinephrine 4 mg In 49.164 4.609 Sodium Chloride 0.9% 250 ml @ 0.03 MCG/KG/MIN 5. 185 mls/hr IV .Q24H ONE Rx#:[id number] Blood Product 0 276 Rc Pheresis As-3 Unit 0 276 [id number] Other: # Voids 0 Weight 45.359 kg 45.6 kg GENERAL EXAM: Alert, 31-year-old white female, comfortable in no apparent dist ress. HEAD: Normocephalic and atraumatic EYES: Normal reaction of pupils, equal size. NOSE: Clear with pink turbinates. THROAT: No erythema or exudates. NECK: No masses, no JVD. CHEST: No chest wall deformity. LUNGS: Equal air entry with no crackles, wheeze, rhonchi or dullness. On 2 L nasal cannula No conversational dyspnea or accessory muscle use.. CVS: S1 and S2 normal with no audible murmur, regular rhythm. No extra heart sounds ABDOMEN: No hepatosplenomegaly, active bowel sounds, no guarding or rigidity. SPINE: No scoliosis or deformity SKIN: No rashes CENTRAL NERVOUS SYSTEM: No focal deficits, tone is normal in all 4 extremities. EXTREMITIES: There is no peripheral edema, clubbing, or cyanosis. Left arm fistula with positive thrill and bruit. Peripheral pulses are intact. Results - Laboratory Findings CBC and BMP: 07/27/22 01:50 07/27/22 01:50 PT/INR, D-dimer PT 11.1 sec (9.0-12.0) 07/27/22 01:50 INR 1.1 (<1.2) 07/27/22 01:50 Abnormal lab findings: Abnormal Labs 07/27/22 07/27/22 07/27/22 01:50 01:50 01:50 RBC 2.37 L Hgb 6.6 L* Hct 19.9 L* Lymphocytes # 0.9 L Sodium 129 L Chloride 88 L Carbon Dioxide 21 L BUN 40 H Creatinine 4.57 H Glucose 239 H POC Glucose (mg/dL) Plasma Lactic Acid Dio 5.3 H* AST 53 H ALT 42 H Alkaline Phosphatase 273 H Total Protein 6.2 L Crossmatch 07/27/22 07/27/22 07/27/22 03:21 04:10 04:15 RBC Hgb Hct Lymphocytes # Sodium Chloride Carbon Dioxide BUN Creatinine Glucose POC Glucose (mg/dL) 252 H Plasma Lactic Acid Dio 7.1 H* AST ALT Alkaline Phosphatase Total Protein Crossmatch See Detail 07/27/22 07/27/22 06:57 07:10 RBC Hgb Hct Lymphocytes # Sodium Chloride Carbon Dioxide BUN Creatinine Glucose POC Glucose (mg/dL) 264 H Plasma Lactic Acid Dio 6.1 H* AST ALT Alkaline Phosphatase Total Protein Crossmatch - Diagnostic Findings Chest x-ray: image reviewed Assessment and Plan Assessment: Hypotension and sinus bradycardia, could potentially be related to patient accidentally taking too many of her cardiac meds. Patient was treated with 1 dose of atropine initially, was started on dopamine infusion, which was ultimately discontinued. Patient was then started on a norepinephrine infusion for her hypotension, and this has been paused since 0740 this morning. Patient's blood pressure is currently normotensive, and heart rhythm is currentl y normal sinus at 60 bpm End-stage renal disease normally receives hemodialysis [place], Monday, Monday. Diabetes mellitus type 1 with extremely brittle blood sugar control. Previous history of cardiac arrest related to hyperkalemia on 07/11/2022 and a previous event in January 2022. History of CVA without residual Diabetic retinopathy and the patient is legally blind Diabetic neuropathy Restless leg syndrome Depression, denies any current suicidal ideation Plan: Patient's medications, labs, chest x-ray reviewed Norepinephrine infusion is currently paused Continue supplemental oxygen to maintain oxygen saturation of 92% or greater Consult psychiatry to evaluate potential intentional versus accidental drug overdose Consult nephrology to manage the patient's end-stage renal disease Cardiology was consulted Echocardiogram pending We will hold patient's beta blockers for now Empiric antibiotics with vancomycin Check procalcitonin level Blood glucose control per admitting physician Patient is more hemodynamically stable, and could potentially be downgraded if the patient can remain on vasopressor support. We will continue to follow I have personally seen and examined the patient, performed the documentation and the assessment and plan as written. Number of minutes spent on the visit:20 Time with Patient: Greater than 30
[2022-07-27 11:38] LABS: Glucose,Whole Blood 273 mg/dL (70-110)
[2022-07-27] MEDS: INSULIN ASPART (NovoLOG) 100 UNIT/ML VIAL SQ SCH ×2 (11:40→17:41)
[2022-07-27] MEDS: CALCIUM ACETATE 667 MG TAB PO SCH ×2 (11:40→17:17)
--- NOTE | 2022-07-27 12:14 | CA ---
Transthoracic Echo Report Name: Patsy Pizano Age: 31 Gender: F : 1990 Exam Date: 07/27/2022 11:15 Exam Location: [facility] Ht (in): 64 Wt (lb): 100 Ordering Physician: Camilo Chairez MD ([id number]) Attending/Referring Phys: Bill Adjuster Emily Chiu RDCS Procedure CPT: Indications: ejection fraction Cardiac Hx: Technical Quality: Fair Contrast 1: Total Dose (mL): Contrast 2: Total Dose (mL): MEASUREMENTS (Male / Female) Normal Values 2D ECHO LV Diastolic Diameter PLAX 3.8 cm 4.2 - 5.9 / 3.9 - 5.3 cm LV Systolic Diameter PLAX 2.5 cm IVS Diastolic Thickness 1.6 cm 0.6 - 1.0 / 0.6 - 0.9 cm LVPW Diastolic Thickness 1.7 cm 0.6 - 1.0 / 0.6 - 0.9 cm LV Relative Wall Thickness 0.9 LV Diastolic Volume MOD 4C 125.1 cm??? LV Systolic Volume MOD 4C 45.4 cm??? LV Ejection Fraction MOD 4C 63.7 % LV Diastolic Length 4C 8.6 cm LV Systolic Length 4C 7.3 cm FINDINGS Left Ventricle Severely increased septal wall thickness. Severely increased posterior wall thickness. Left ventricular ejection fraction is estimated at 55-60 %. Right Ventricle Right Atrium Left Atrium Mitral Valve Aortic Valve Tricuspid Valve Pulmonic Valve Pericardium Small pericardial effusion. Aorta Normal size aortic root and proximal ascending aorta. CONCLUSIONS Normal LV size and moderate to severe concentric LVH. No wall motion abnormality. Small pericardial effusion Previewed by: Dr. Judah Downs MD (Electronically Signed) Final Date: 27 July 2022 12:13
[2022-07-27] MEDS: DARBEPOETIN ALFA 40 MCG/0.4 ML SYRINGE SQ SCH (12:28)
[2022-07-27] MEDS: diphenhydrAMINE 50 MG/ML 1 ML VIAL IVP PRN ×2 (13:09→23:48)
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
[2022-07-27 14:41] LABS: HCT 21.1 % (34.0-46.0); HGB 7.4 gm/dL (11.4-16.0); MCH 29.1 pg (25.0-35.0); MCHC 35.2 g/dL (31.0-37.0); MCV 82.5 fL (80.0-100.0); Mean Platelet Volume 9.7; Platelet Count 176 k/uL (150-450); RBC 2.56 m/uL (3.80-5.40); RDW 14.3 % (11.5-15.5); WBC 5.9 k/uL (3.8-10.6)
[2022-07-27] MEDS: LORazepam 1 MG TAB PO PRN (15:19)
[2022-07-27 17:14] LABS: Glucose,Whole Blood 54 mg/dL (70-110)
[2022-07-27 17:17] LABS: Glucose,Whole Blood 53 mg/dL (70-110)
[2022-07-27] MEDS: carvediloL 12.5 MG TAB PO SCH (17:17)
[2022-07-27] MEDS: cloNIDine HCL 0.1 MG TAB PO SCH ×2 (17:17→22:45)
[2022-07-27 17:46] LABS: Glucose,Whole Blood 63 mg/dL (70-110)
[2022-07-27 18:12] LABS: Glucose,Whole Blood 99 mg/dL (70-110)
[2022-07-27] MEDS ORDERED: FAMOTIDINE 20 MG TAB PO SCH (21:00)
[2022-07-27 22:35] LABS: Glucose,Whole Blood 166 mg/dL (70-110)
[2022-07-27] MEDS: MELATONIN 5 MG TABLET PO SCH (22:45)
[2022-07-27] MEDS: FAMOTIDINE 20 MG TAB PO SCH (22:45)
[2022-07-27] MEDS: DULoxetine HCL 30 MG CAPSULE.DR PO SCH (22:45)
[2022-07-27] MEDS: TORSEMIDE 20 MG TAB PO SCH (22:45)
[2022-07-27] MEDS: buPROPion SR 150 MG TABLET.ER PO SCH (22:45)
[2022-07-27] MEDS: MIRTAZAPINE 15 MG TAB PO SCH (22:54)
[2022-07-28] MEDS: LORazepam 1 MG TAB PO PRN ×2 (00:57→18:54)
[2022-07-28] MEDS: HYDROmorphone 1 MG/ML 1 ML SYRINGE IVP PRN ×3 (02:23→17:12)
[2022-07-28] MEDS ORDERED: VANCOMYCIN 750 MG in SODIUM CHLORIDE 0.9% 250 ML IVPB ONE (05:00)
[2022-07-28] MEDS: hydrOXYzine HCL 25 MG TAB PO PRN ×2 (05:42→18:54)
--- NOTE | 2022-07-28 06:09 | HP ---
HISTORY AND PHYSICAL CHIEF COMPLAINT: Dizziness and hypotension. HISTORY OF PRESENT ILLNESS: This is another of many admissions for this 31-year-old white female, who has stage 5 CKD, type 1 insulin-dependent diabetes mellitus, hypertension, and depression. She has been at home for about a week or 10 days. Apparently, she called an ambulance because she felt like she might "have another cardiac arrest." She has had several arrests over the last several months related to hyperkalemia despite being on dialysis twice a week. REVIEW OF SYSTEMS: She denies any current headaches, chest pain, abdominal pain, nausea, vomiting, etc. She is complaining of back pain, which is normal for her. Past medical history, family history, personal and social histories are all detailed in her prior hospital records and medications that she can be found in the MAR. PHYSICAL EXAMINATION: VITAL SIGNS: Blood pressure is 87/50 with a pulse of 70, respirations of 32, and she is afebrile. GENERAL: She appeared to be pale, dehydrated, chronically ill. She is slightly lethargic. HEAD, EARS, EYES, NOSE, MOUTH AND THROAT: Normal. She is blind. CHEST: Clear. CARDIAC: Normal. ABDOMEN: Soft, nontender. EXTREMITIES: Normal. IMPRESSION: 1. Hypotension. 2. Stage 5 chronic kidney disease. 3. Uncontrolled type 1 insulin-dependent diabetes mellitus. 4. Hypertension. 5. Amblyopia. 6. Depression. PLAN: ICU management with support of blood pressure, if necessary, dialysis and diabetic management. MMODL / IJN: [id number] /
[2022-07-28 06:10] LABS: Basophils # (A) 0.1 k/uL (0-0.2); Basophils % (A) 1 %; Eosinophils # (A) 0.3 k/uL (0-0.7); Eosinophils % (A) 8 %; HCT 22.6 % (34.0-46.0); HGB 7.6 gm/dL (11.4-16.0); Lymphocytes # (A) 0.6 k/uL (1.0-4.8); Lymphocytes % (A) 15 %; MCH 27.8 pg (25.0-35.0); MCHC 33.6 g/dL (31.0-37.0); MCV 82.9 fL (80.0-100.0); Mean Platelet Volume 9.9; Monocytes # (A) 0.1 k/uL (0-1.0); Monocytes % (A) 3 %; Neutrophils # (A) 2.8 k/uL (1.3-7.7); Neutrophils % (A) 71 %; Platelet Count 180 k/uL (150-450); RBC 2.73 m/uL (3.80-5.40); RDW 14.8 % (11.5-15.5); WBC 3.9 k/uL (3.8-10.6)
[2022-07-28 06:34] LABS: Calcium 8.3 mg/dL (8.4-10.2); Potassium 3.7 mmol/L (3.5-5.1)
[2022-07-28] MEDS ORDERED: PANTOPRAZOLE 40 MG TABLET PO SCH (07:30)
[2022-07-28 07:56] LABS: Glucose,Whole Blood 156 mg/dL (70-110)
[2022-07-28] MEDS ORDERED: ESCITALOPRAM 10 MG TAB PO ONE (09:00)
[2022-07-28] MEDS ORDERED: ESCITALOPRAM 20 MG TAB PO SCH (09:00)
--- NOTE | 2022-07-28 09:48 | P.PN ---
Subjective Progress Note Date: 07/28/22 HISTORY OF PRESENT ILLNESS: The patient is a very pleasant 31-year-old female patient with a past medical history significant for end stage renal disease on dialysis who was admitted to the hospital because of low blood pressure. The patient was monitoring her pressure at home. She did not feel well yesterday beach checked her pressure and that came in to be low with a systolic pressure around 70 mmHg. At that point she was not feeling well. She was feeling weak and dizzy and tired but no loss of consciousness and no syncope. No symptoms of chest pain or chest discomfort or any shortness of breath. She decided to come to the emergency department with further investigation was performed including a CBC and that showed low hemoglobin. The patient subsequently was given blood with improvement in hemoglobin. She did require norepinephrine for sometime but currently she is off norepinephrine. No symptoms of chest pain or chest discomfort. Currently she is hemodynamic stable and not on any vasopressors. As a matter of fact she is going to be started back on calcium channel rox would continue monitoring her blood pressure and heart rate. Hemoglobin this morning is stable. Prior echo from 2021 showed normal right ventricular systolic function was no significant valvular abnormalities 07/28/2022 Patient examined this morning at the bedside. Patient denies chest pain or pressure. She denies shortness of breath. She states she is tired this morning and does not have an appetite for breakfast. Patient's vital signs have improv ed. Limited echocardiogram completed revealing normal LV systolic function. PHYSICAL EXAM: VITAL SIGNS: Reviewed. GENERAL: Well-developed in no acute distress. NECK: Supple. No JVD or thyromegaly LUNGS: Respirations even and unlabored. Lungs essentially clear to auscultation bilaterally. HEART: Regular rate and rhythm. S1 and S2 heard. Systolic murmur noted. EXTREMITIES: Normal range of motion. No clubbing or cyanosis. Peripheral pulses intact. No lower extremity edema ASSESSMENT: Hypotension, resolved Anemia End-stage renal disease on hemodialysis Diabetes History of CVA PLAN: Continue current cardiac medications Patient is stable from a cardiac standpoint with no further inpatient recommendations We will sign off. Please reconsult if needed. Nurse practitioner note has been reviewed by physician. Signing provider agrees with the documented findings, assessment, and plan of care. Objective - Vital Signs Vital signs: Vital Signs Temp 98.2 F 07/28/22 07:45 Pulse 75 07/28/22 07:45 Resp 20 07/28/22 07:45 BP 150/82 07/28/22 07:45 Pulse Ox 99 07/28/22 08:25 FiO2 Intake & Output 07/27/22 07/28/22 07/28/22 18:59 06:59 18:59 Intake Total 730.609 Output Total 1999 Balance -1269.391 Weight 45.6 kg Intake: IV 150 Desmopressin Acetate 14 50 mcg In Sodium Chloride 0. 9% 50 ml @ 200 mls/hr IVPB ONCE ONE Rx#: [id number] Piperacillin-Tazobactam 3 100 .375 gm In Sodium Chloride 0.9% 100 ml @ 200 mls/hr IVPB ONCE STA Rx#:[id number] Intake, IV Titration 4.609 Amount Norepinephrine 4 mg In 4.609 Sodium Chloride 0.9% 250 ml @ 0.03 MCG/KG/MIN 5. 185 mls/hr IV .Q24H ONE Rx#:[id number] Blood Product 276 Rc Pheresis As-3 Unit 276 [id number] Hemodialysis 300 Output: Hemodialysis 1999 Other: # Voids 0 0 - Labs CBC & Chem 7: 07/28/22 05:45 07/28/22 05:45 Labs: Abnormal Lab Results - Last 24 Hours (Table) 07/27/22 07/27/22 07/27/22 Range/Units 01:50 11:35 14:02 RBC 2.56 L (3.80-5.40) m/uL Hgb 7.4 L (11.4-16.0) gm/dL Hct 21.1 L (34.0-46.0) % Lymphocytes # (1.0-4.8) k/uL Sodium (137-145) mmol/L Chloride (98-107) mmol/L Carbon Dioxide (22-30) mmol/L Creatinine (0.52-1.04) mg/dL Glucose (74-99) mg/dL POC Glucose (mg/dL) 273 H (70-110) mg/dL Plasma Lactic Acid Dio (0.7-2.0) mmol/L Calcium (8.4-10.2) mg/dL Procalcitonin 0.98 H (0.02-0.09) ng/mL 07/27/22 07/27/22 07/27/22 Range/Units 17:11 17:15 17:45 RBC (3.80-5.40) m/uL Hgb (11.4-16.0) gm/dL Hct (34.0-46.0) % Lymphocytes # (1.0-4.8) k/uL Sodium (137-145) mmol/L Chloride (98-107) mmol/L Carbon Dioxide (22-30) mmol/L Creatinine (0.52-1.04) mg/dL Glucose (74-99) mg/dL POC Glucose (mg/dL) 54 L 53 L 63 L (70-110) mg/dL Plasma Lactic Acid Dio (0.7-2.0) mmol/L Calcium (8.4-10.2) mg/dL Procalcitonin (0.02-0.09) ng/mL 07/27/22 07/28/22 07/28/22 Range/Units 22:34 05:45 05:45 RBC 2.73 L (3.80-5.40) m/uL Hgb 7.6 L (11.4-16.0) gm/dL Hct 22.6 L (34.0-46.0) % Lymphocytes # 0.6 L (1.0-4.8) k/uL Sodium 133 L (137-145) mmol/L Chloride 94 L (98-107) mmol/L Carbon Dioxide 31 H (22-30) mmol/L Creatinine 2.60 H (0.52-1.04) mg/dL Glucose 145 H (74-99) mg/dL POC Glucose (mg/dL) 166 H (70-110) mg/dL Plasma Lactic Acid Dio (0.7-2.0) mmol/L Calcium 8.3 L (8.4-10.2) mg/dL Procalcitonin (0.02-0.09) ng/mL 07/28/22 07/28/22 Range/Units 06:22 07:54 RBC (3.80-5.40) m/uL Hgb (11.4-16.0) gm/dL Hct (34.0-46.0) % Lymphocytes # (1.0-4.8) k/uL Sodium (137-145) mmol/L Chloride (98-107) mmol/L Carbon Dioxide (22-30) mmol/L Creatinine (0.52-1.04) mg/dL Glucose (74-99) mg/dL POC Glucose (mg/dL) 156 H (70-110) mg/dL Plasma Lactic Acid Dio 0.5 L (0.7-2.0) mmol/L Calcium (8.4-10.2) mg/dL Procalcitonin (0.02-0.09) ng/mL Microbiology - Last 24 Hours (Table) 07/27/22 01:48 Blood Culture - Preliminary Blood No Growth after 24 hours
[2022-07-28] MEDS: CALCIUM ACETATE 667 MG TAB PO SCH ×3 (10:43→17:11)
[2022-07-28] MEDS: ASPIRIN 81 MG PO SCH (10:45)
[2022-07-28] MEDS: cloNIDine HCL 0.1 MG TAB PO SCH ×3 (10:45→22:03)
[2022-07-28] MEDS: CYANOCOBALAMIN 500 MCG TAB PO SCH (10:46)
[2022-07-28] MEDS: carvediloL 12.5 MG TAB PO SCH ×2 (10:46→17:12)
[2022-07-28] MEDS: DULoxetine HCL 30 MG CAPSULE.DR PO SCH ×2 (10:46→22:03)
[2022-07-28] MEDS: INSULIN ASPART (NovoLOG) 100 UNIT/ML VIAL SQ SCH ×3 (10:46→17:05)
[2022-07-28] MEDS: ATORVASTATIN 40 MG TAB PO SCH (10:46)
[2022-07-28 11:06] LABS: Glucose,Whole Blood 166 mg/dL (70-110)
--- NOTE | 2022-07-28 11:41 | P.PN ---
Subjective Patient is seen in follow-up for end-stage renal disease. Blood pressure stable. Blood sugars also stable. Tolerated 2 L ultrafiltration yesterday. No active complaints. Vital signs are stable. General: No acute distress. HEENT: Head exam is unremarkable. LUNGS: No audible rhonchi or wheezes. HEART: Rate and Rhythm are regular. ABDOMEN: No distention. EXTREMITITES: No edema. Objective - Vital Signs Vital signs: Vital Signs Temp 98.2 F 07/28/22 07:45 Pulse 75 07/28/22 07:45 Resp 20 07/28/22 07:45 BP 150/82 07/28/22 07:45 Pulse Ox 99 07/28/22 08:25 FiO2 Intake & Output 07/27/22 07/28/22 07/28/22 18:59 06:59 18:59 Intake Total 730.609 Output Total 1999 Balance -1269.391 Weight 45.6 kg Intake: IV 150 Desmopressin Acetate 14 50 mcg In Sodium Chloride 0. 9% 50 ml @ 200 mls/hr IVPB ONCE ONE Rx#: [id number] Piperacillin-Tazobactam 3 100 .375 gm In Sodium Chloride 0.9% 100 ml @ 200 mls/hr IVPB ONCE STA Rx#:[id number] Intake, IV Titration 4.609 Amount Norepinephrine 4 mg In 4.609 Sodium Chloride 0.9% 250 ml @ 0.03 MCG/KG/MIN 5. 185 mls/hr IV .Q24H ONE Rx#:[id number] Blood Product 276 Rc Pheresis As-3 Unit 276 [id number] Hemodialysis 300 Output: Hemodialysis 1999 Other: # Voids 0 0 - Labs CBC & Chem 7: 07/28/22 05:45 07/28/22 05:45 Labs: Abnormal Lab Results - Last 24 Hours (Table) 07/27/22 07/27/22 07/27/22 Range/Units 01:50 11:35 14:02 RBC 2.56 L (3.80-5.40) m/uL Hgb 7.4 L (11.4-16.0) gm/dL Hct 21.1 L (34.0-46.0) % Lymphocytes # (1.0-4.8) k/uL Sodium (137-145) mmol/L Chloride (98-107) mmol/L Carbon Dioxide (22-30) mmol/L Creatinine (0.52-1.04) mg/dL Glucose (74-99) mg/dL POC Glucose (mg/dL) 273 H (70-110) mg/dL Plasma Lactic Acid Dio (0.7-2.0) mmol/L Calcium (8.4-10.2) mg/dL Procalcitonin 0.98 H (0.02-0.09) ng/mL 07/27/22 07/27/22 07/27/22 Range/Units 17:11 17:15 17:45 RBC (3.80-5.40) m/uL Hgb (11.4-16.0) gm/dL Hct (34.0-46.0) % Lymphocytes # (1.0-4.8) k/uL Sodium (137-145) mmol/L Chloride (98-107) mmol/L Carbon Dioxide (22-30) mmol/L Creatinine (0.52-1.04) mg/dL Glucose (74-99) mg/dL POC Glucose (mg/dL) 54 L 53 L 63 L (70-110) mg/dL Plasma Lactic Acid Dio (0.7-2.0) mmol/L Calcium (8.4-10.2) mg/dL Procalcitonin (0.02-0.09) ng/mL 07/27/22 07/28/22 07/28/22 Range/Units 22:34 05:45 05:45 RBC 2.73 L (3.80-5.40) m/uL Hgb 7.6 L (11.4-16.0) gm/dL Hct 22.6 L (34.0-46.0) % Lymphocytes # 0.6 L (1.0-4.8) k/uL Sodium 133 L (137-145) mmol/L Chloride 94 L (98-107) mmol/L Carbon Dioxide 31 H (22-30) mmol/L Creatinine 2.60 H (0.52-1.04) mg/dL Glucose 145 H (74-99) mg/dL POC Glucose (mg/dL) 166 H (70-110) mg/dL Plasma Lactic Acid Dio (0.7-2.0) mmol/L Calcium 8.3 L (8.4-10.2) mg/dL Procalcitonin (0.02-0.09) ng/mL 07/28/22 07/28/22 07/28/22 Range/Units 06:22 07:54 11:04 RBC (3.80-5.40) m/uL Hgb (11.4-16.0) gm/dL Hct (34.0-46.0) % Lymphocytes # (1.0-4.8) k/uL Sodium (137-145) mmol/L Chloride (98-107) mmol/L Carbon Dioxide (22-30) mmol/L Creatinine (0.52-1.04) mg/dL Glucose (74-99) mg/dL POC Glucose (mg/dL) 156 H 166 H (70-110) mg/dL Plasma Lactic Acid Dio 0.5 L (0.7-2.0) mmol/L Calcium (8.4-10.2) mg/dL Procalcitonin (0.02-0.09) ng/mL Microbiology - Last 24 Hours (Table) 07/27/22 01:48 Blood Culture - Preliminary Blood No Growth after 24 hours Assessment and Plan Plan: Assessment: 1. End-stage renal disease maintained on hemodialysis on Monday schedule. 2. Acute blood loss anemia status post blood transfusion. No active bleeding. Status post IV DDAVP. On Aranesp. 3. 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 4. Hypertension with chronic kidney disease. Stable. 5. Brittle diabetes. Plan: Hemodialysis tomorrow.
[2022-07-28] MEDS: INSULIN DETEMIR (LEVEMIR) 100 UNIT/ML SYR SQ SCH (11:55)
[2022-07-28] MEDS: TORSEMIDE 20 MG TAB PO SCH ×2 (11:56→22:04)
--- NOTE | 2022-07-28 13:34 | P.PN ---
Progress Note - Text Progress Note Date: 07/28/22 Interval History: Patient was seen today for psychiatric follow-up. Patient's nurse states the patient has been doing fairly well. Patient was seen watching the news today and was agreeable to speak to selling underwriter. She appears to have mild improvement in her affect today. She states that her mood has been improving weather does state that she does feel mildly anxious mainly being in the hospital. She claims that she is still finding it difficult to get over the cardiac arrests that she had the past several months. She appears to be more future oriented today and more engaged with selling underwriter during conversation. Things that she is able to sleep well last night with the Remeron. Claims that her appetite is mildly improving today. At this time patient denies any suicidal or homical ideations, intent or plan. Patient denies any auditory, visual hallucinations and denies any paranoia or delusions. Patient denies any side effects from the medications and has been compliant with meds. Mental Status Exam: General Appearance: Patient appears to be thin, short hair, stated age is alert, pleasant, and cooperative. Patient appears to have fair hygiene and grooming wearing hospital gown with fair eye contact. Behavior: Patient is calmly lying in bed without any agitated behavior. More cooperative today Speech: Patient's speech is fluent and nonpressured. Mood/Affect: Patient reports their mood is "only anxious sometimes", affect is congruent and brighter Suicidality/Homicidality: Patient denies having any suicidal or homicidal ideation intent or plan. Perceptions: Patient denies any visual hallucinations and denies any auditory hallucinations Though content/process: There is no evidence of any delusional thought content and thought process is linear and goal-directed. More future oriented Memory and concentration: AOX3, grossly intact for the purposes of this session Judgment and insight: fair IMPRESSIONS: Major depressive disorder mild Anxiety disorder unspecified PLAN: -At this time patient DOES NOT meet criteria for inpatient psychiatric admission. -Would recommend the following medication changes/additions: continue with cymbalta to 30 mg bid for depression/anxiety, this can be increased in the outpatient setting in a few weeks down the line if patient continues to experience anxiety or needsadjustment. continue mirtazapine 7.5 mg daily at bedtime for sleep/mood/appetite. can continue with current dose of wellbutrin. trazodone prn for sleep. melatonin 10 mg qhs for sleep. -fiber optic assembly worker to provide patient with outpatient mental health/psychiatry resources for appropriate follow up upon discharge. patient could benefit from indvl therapy -Communicated plan to patient's nurse -patient needs more home health services and helpwith meds and her condition as patient is high risk to misread or misdose her meds if she is giving them to herself. It does not appear to be an intentional overdose to my knowledge. -at this time psychiatry will sign off -Please contact with any questions.
--- NOTE | 2022-07-28 13:52 | P.PN ---
Subjective Progress Note Date: 07/28/22 Principal diagnosis: Hypertension, possible accidental overdose I'm seeing this patient in new consultation today 07/27/2022 in the intensive care unit. This is a pleasant 31-year-old white female with past medical history of end-stage renal disease, receiving hemodialysis normally Monday, type 1 diabetes mellitus, brittle glucose control, multiple previous ICU admissions for DKA, previous cardiac arrests related to hyperkalemia, CVA, diabetic retinopathy, legally blind, hypertension, neuropathy. Patient did have a recent ICU admission on 07/11/2022 for hypotension and ultimately cardiac arrest related to hyperkalemia. Patient did make a full recovery, and was discharged home on 07/19/2022. Prior to this admission, patient was at home, with chief complaint of generalized weakness. She did take her blood pressure which was low. Apparently, patient may have taken more of her antihypertensive medications than ordered. Patient denies any suicidal ideation. Patient was brought to [facility] where she was found to be hypotensive and bradycardic, she was given one dose of atropine and started transiently on dopamine infusion. Dopamine infusion was discontinued, and patient was started on a norepinephrine infusion. This is currently paused. Patient's ECG on arrival showed sinus bradycardia at 44 bpm. Heart rate is currently normal sinus rhythm in the 60s. Patient is currently resting in bed, on 2 L nasal cannula, in no acute distress. Patient's chest x-ray on arrival showed some cardiomegaly and mild pulmonary interstitial edema. Patient's BMP on arrival showed a sodium 129, potassium 4.6, chloride 88, serum CO2 21, BUN 40, creatinine 4.57, glucose 239. Patient's lactic was elevated at 7.1 and is trending down currently 6.1. Patient was given a 1 L normal saline bolus in the ER. BNP was elevated at 85,900. Echocardiogram is pending. LFTs were mildly elevated. No IV maintenance fluids infusing using. Blood glucose is being managed by admitting physician. Currently is receiving scheduled NovoLog 6 units before meals, Levemir 12 units daily. Patient's hemoglobin on arrival was low at 6.6, and is chronically low. Patient has received 1 unit PRBC. No signs of overt signs of bleeding. Patient's WBC count is 4.3, platelets 222,000. Patient denies cough, shortness breath, fever, chest pain. Patient is empirically covered on vancomycin. Afebrile. Vital signs are stable. I am reevaluating this patient today 07/28/2022 in follow-up the general medical floor. Patient currently resting in bed, on 4 L nasal cannula, in no acute distress. She denies any pulmonary complaints. Blood pressure and heart rate have remained stable without any vasopressor support. Patient was restarted on her home cardiac meds. Patient's echocardiogram from yesterday showed a preserved ejection fraction of 55-60% with some moderate to severe left ventricular hypertrophy. Blood cultures remain negative at 24 hours. Patient's CBC from today is stable with a WBC count of 3.9, hemoglobin 7.6, hematocrit 22.6, platelets 180,000. Patient's BMP from today shows a sodium 130, potassium 3.7, chloride 94, serum CO2 31, BUN 15, creatinine improved to 2.6, glucose 145. Blood sugars were fairly well-controlled overnight. Vital signs remain stable. Objective - Vital Signs Vital signs: Vital Signs Temp 98.2 F 07/28/22 07:45 Pulse 75 07/28/22 07:45 Resp 20 07/28/22 07:45 BP 150/82 07/28/22 07:45 Pulse Ox 99 07/28/22 08:25 FiO2 Intake & Output 07/27/22 07/28/22 07/28/22 18:59 06:59 18:59 Intake Total 730.609 Output Total 1999 Balance -1269.391 Weight 45.6 kg Intake: IV 150 Desmopressin Acetate 14 50 mcg In Sodium Chloride 0. 9% 50 ml @ 200 mls/hr IVPB ONCE ONE Rx#: [id number] Piperacillin-Tazobactam 3 100 .375 gm In Sodium Chloride 0.9% 100 ml @ 200 mls/hr IVPB ONCE STA Rx#:[id number] Intake, IV Titration 4.609 Amount Norepinephrine 4 mg In 4.609 Sodium Chloride 0.9% 250 ml @ 0.03 MCG/KG/MIN 5. 185 mls/hr IV .Q24H ONE Rx#:[id number] Blood Product 276 Rc Pheresis As-3 Unit 276 [id number] Hemodialysis 300 Output: Hemodialysis 1999 Other: # Voids 0 0 - Exam GENERAL EXAM: Alert, 31-year-old white female, comfortable in no apparent distress. HEAD: Normocephalic and atraumatic EYES: Normal reaction of pupils, equal size. NOSE: Clear with pink turbinates. THROAT: No erythema or exudates. NECK: No masses, no JVD. CHEST: No chest wall deformity. LUNGS: Equal air entry with no crackles, wheeze, rhonchi or dullness. On 4 L nasal cannula No conversational dyspnea or accessory muscle use.. CVS: S1 and S2 normal with no audible murmur, regular rhythm. No extra heart sounds ABDOMEN: No hepatosplenomegaly, active bowel sounds, no guarding or rigidity. SPINE: No scoliosis or deformity SKIN: No rashes CENTRAL NERVOUS SYSTEM: No focal deficits, tone is normal in all 4 extremities. EXTREMITIES: There is no peripheral edema, clubbing, or cyanosis. Left arm fistula with positive thrill and bruit. Peripheral pulses are intact. - Labs CBC & Chem 7: 07/28/22 05:45 07/28/22 05:45 Labs: Abnormal Lab Results - Last 24 Hours (Table) 07/27/22 07/27/22 07/27/22 Range/Units 01:50 14:02 17:11 RBC 2.56 L (3.80-5.40) m/uL Hgb 7.4 L (11.4-16.0) gm/dL Hct 21.1 L (34.0-46.0) % Lymphocytes # (1.0-4.8) k/uL Sodium (137-145) mmol/L Chloride (98-107) mmol/L Carbon Dioxide (22-30) mmol/L Creatinine (0.52-1.04) mg/dL Glucose (74-99) mg/dL POC Glucose (mg/dL) 54 L (70-110) mg/dL Plasma Lactic Acid Dio (0.7-2.0) mmol/L Calcium (8.4-10.2) mg/dL Procalcitonin 0.98 H (0.02-0.09) ng/mL 07/27/22 07/27/22 07/27/22 Range/Units 17:15 17:45 22:34 RBC (3.80-5.40) m/uL Hgb (11.4-16.0) gm/dL Hct (34.0-46.0) % Lymphocytes # (1.0-4.8) k/uL Sodium (137-145) mmol/L Chloride (98-107) mmol/L Carbon Dioxide (22-30) mmol/L Creatinine (0.52-1.04) mg/dL Glucose (74-99) mg/dL POC Glucose (mg/dL) 53 L 63 L 166 H (70-110) mg/dL Plasma Lactic Acid Ido (0.7-2.0) mmol/L Calcium (8.4-10.2) mg/dL Procalcitonin (0.02-0.09) ng/mL 07/28/22 07/28/22 07/28/22 Range/Units 05:45 05:45 06:22 RBC 2.73 L (3.80-5.40) m/uL Hgb 7.6 L (11.4-16.0) gm/dL Hct 22.6 L (34.0-46.0) % Lymphocytes # 0.6 L (1.0-4.8) k/uL Sodium 133 L (137-145) mmol/L Chloride 94 L (98-107) mmol/L Carbon Dioxide 31 H (22-30) mmol/L Creatinine 2.60 H (0.52-1.04) mg/dL Glucose 145 H (74-99) mg/dL POC Glucose (mg/dL) (70-110) mg/dL Plasma Lactic Acid Dio 0.5 L (0.7-2.0) mmol/L Calcium 8.3 L (8.4-10.2) mg/dL Procalcitonin (0.02-0.09) ng/mL 07/28/22 07/28/22 Range/Units 07:54 11:04 RBC (3.80-5.40) m/uL Hgb (11.4-16.0) gm/dL Hct (34.0-46.0) % Lymphocytes # (1.0-4.8) k/uL Sodium (137-145) mmol/L Chloride (98-107) mmol/L Carbon Dioxide (22-30) mmol/L Creatinine (0.52-1.04) mg/dL Glucose (74-99) mg/dL POC Glucose (mg/dL) 156 H 166 H (70-110) mg/dL Plasma Lactic Acid Dio (0.7-2.0) mmol/L Calcium (8.4-10.2) mg/dL Procalcitonin (0.02-0.09) ng/mL Microbiology - Last 24 Hours (Table) 07/27/22 01:48 Blood Culture - Preliminary Blood No Growth after 24 hours Assessment and Plan Assessment: Hypotension and sinus bradycardia, could potentially be related to patient accidentally taking too many of her cardiac meds. Patient was treated with 1 dose of atropine initially, was started on dopamine infusion, which was ultimately discontinued. Patient was then started on a norepinephrine infusion for her hypotension, and this has been paused since 0740 this morning. Resolved, and has not required any further vasopressor support. Home cardiac medications have been restarted. End-stage renal disease normally receives hemodialysis Monday, Monday, Monday. Diabetes mellitus type 1 with extremely brittle blood sugar control. Previous history of cardiac arrest related to hyperkalemia on 07/11/2022 and a previous event in January 2022. History of CVA without residual Diabetic retinopathy and the patient is legally blind Diabetic neuropathy Restless leg syndrome Depression, denies any current suicidal ideation Plan: Patient's medications, labs, chest x-ray reviewed Continue supplemental oxygen to maintain oxygen saturation of 92% or greater Blood pressure and heart rate remain stable off vasopressor support Cardiac medications have been resumed Home O2 evaluation on discharge From a pulmonary standpoint, patient is cleared for discharge I have personally seen and examined the patient, performed the documentation and the assessment and plan as written. Number of minutes spent on the visit:10 Time with Patient: Less than 30
[2022-07-28] MEDS: buPROPion SR 150 MG TABLET.ER PO SCH ×2 (13:59→22:03)
[2022-07-28] MEDS ORDERED: DEXTROSE 50% SYRINGE 50 ML IVP ONE ×2 (16:25→21:36)
[2022-07-28 16:29] LABS: Glucose,Whole Blood 26 mg/dL (70-110)
[2022-07-28 16:47] LABS: Glucose,Whole Blood 157 mg/dL (70-110)
[2022-07-28 20:13] LABS: Glucose,Whole Blood 76 mg/dL (70-110)
[2022-07-28 21:34] LABS: Glucose,Whole Blood 31 mg/dL (70-110)
[2022-07-28] MEDS ORDERED: DEXTROSE 50% SYRINGE 50 ML IVP STA (21:34)
[2022-07-28 21:58] LABS: Glucose,Whole Blood 171 mg/dL (70-110)
[2022-07-28] MEDS: MELATONIN 5 MG TABLET PO SCH (22:03)
[2022-07-28] MEDS: MIRTAZAPINE 15 MG TAB PO SCH (22:04)
[2022-07-28] MEDS: FAMOTIDINE 20 MG TAB PO SCH (22:04)
[2022-07-28 23:57] LABS: Glucose,Whole Blood 189 mg/dL (70-110)
[2022-07-29] MEDS: HYDROmorphone 1 MG/ML 1 ML SYRINGE IVP PRN ×3 (00:26→22:57)
[2022-07-29 03:06] LABS: Glucose,Whole Blood 241 mg/dL (70-110)
[2022-07-29] MEDS: LORazepam 1 MG TAB PO PRN (03:13)
[2022-07-29] MEDS: carvediloL 12.5 MG TAB PO SCH (07:52)
[2022-07-29] MEDS: cloNIDine HCL 0.1 MG TAB PO SCH (07:53)
[2022-07-29] MEDS: TORSEMIDE 20 MG TAB PO SCH ×2 (07:55→20:15)
[2022-07-29 08:08] LABS: Glucose,Whole Blood 334 mg/dL (70-110)
[2022-07-29] MEDS ORDERED: SODIUM CHLORIDE 0.9% 500 ML 500 ML IV ONE ×3 (08:15→11:13)
[2022-07-29] MEDS: CALCIUM ACETATE 667 MG TAB PO SCH ×3 (08:19→17:35)
[2022-07-29] MEDS: MIDODRINE 5 MG TAB PO SCH ×3 (08:24→17:28)
[2022-07-29] MEDS: INSULIN ASPART (NovoLOG) 100 UNIT/ML VIAL SQ SCH ×3 (08:30→17:25)
[2022-07-29] MEDS: INSULIN DETEMIR (LEVEMIR) 100 UNIT/ML SYR SQ SCH (08:30)
[2022-07-29 09:33] LABS: Basophils # (A) 0.06 X 10*3/uL (0.00-0.10); Basophils % (A) 1.1 %; Eosinophils % (A) 10.8 %; HCT 23.5 % (37.2-46.3); HGB 7.4 g/dL (12.0-15.0); Immature Grans, Automated 0.2 %; Lymphocytes # (A) 1.07 X 10*3/uL (0.90-5.00); Lymphocytes % (A) 19.3 %; MCH 27.1 pg (27.0-32.0); MCHC 31.5 g/dL (32.0-37.0); MCV 86.1 fL (80.0-97.0); Mean Platelet Volume 12.2 fL (9.5-12.2); Monocytes # (A) 0.23 X 10*3/uL (0.20-1.00); Monocytes % (A) 4.2 %; NRBC Per 100 WBC 0 /100 WBCS (0.0-0.0); Neutrophils # (A) 3.57 X 10*3/uL (1.80-7.70); Neutrophils % (A) 64.4 %; Platelet Count 258 X 10*3/uL (140-440); RBC 2.73 X 10*6/uL (4.10-5.20); RDW 13.6 % (11.5-14.5); WBC 5.54 X 10*3/uL (4.50-10.00)
[2022-07-29] MEDS: ATORVASTATIN 40 MG TAB PO SCH (09:51)
[2022-07-29] MEDS: CYANOCOBALAMIN 500 MCG TAB PO SCH (09:51)
[2022-07-29] MEDS: buPROPion SR 150 MG TABLET.ER PO SCH ×2 (09:51→20:14)
[2022-07-29] MEDS: DULoxetine HCL 30 MG CAPSULE.DR PO SCH ×2 (09:51→20:14)
[2022-07-29] MEDS: ASPIRIN 81 MG PO SCH (09:51)
[2022-07-29 10:15] LABS: African American GFR (CKD) 14.4 (60.0-200.0); Anion Gap 14.3 mmol/L (10.00-18.00); BUN/Creat Ratio 5.05 Ratio (12.00-20.00); Blood Urea Nitrogen 22.2 mg/dL (9.0-27.0); Calcium 8.5 mg/dL (8.7-10.3); Carbon Dioxide 26.7 mmol/L (20.0-27.5); Non-African American GFR(CKD) 12.4 (60.0-200.0); Potassium 4.4 mmol/L (3.5-5.5)
[2022-07-29] MEDS ORDERED: MIDODRINE 5 MG TAB PO ONE (11:15)
--- NOTE | 2022-07-29 11:42 | P.PN ---
Subjective Progress Note Date: 07/29/22 HISTORY OF PRESENT ILLNESS: The patient is a very pleasant 31-year-old female patient with a past medical history significant for end stage renal disease on dialysis who was admitted to the hospital because of low blood pressure. The patient was monitoring her pressure at home. She did not feel well yesterday beach checked her pressure and that came in to be low with a systolic pressure around 70 mmHg. At that point she was not feeling well. She was feeling weak and dizzy and tired but no loss of consciousness and no syncope. No symptoms of chest pain or chest discomfort or any shortness of breath. She decided to come to the emergency department with further investigation was performed including a CBC and that showed low hemoglobin. The patient subsequently was given blood with improvement in hemoglobin. She did require norepinephrine for sometime but currently she is off norepinephrine. No symptoms of chest pain or chest discomfort. Currently she is hemodynamic stable and not on any vasopressors. As a matter of fact she is going to be started back on calcium channel rox would continue monitoring her blood pressure and heart rate. Hemoglobin this morning is stable. Prior echo from 2021 showed normal right ventricular systolic function was no significant valvular abnormalities 07/28/2022 Patient examined this morning at the bedside. Patient denies chest pain or pressure. She denies shortness of breath. She states she is tired this morning and does not have an appetite for breakfast. Patient's vital signs have improv ed. Limited echocardiogram completed revealing normal LV systolic function. 07/29/2022 Cardiology reconsulted secondary to hypotension and bradycardia. Patients SBP was in the 60s and bradycardic in the mid 40-50s. Patient was hypertensive yesterday and received her cardiac medications. They have been held this morning. Patient was started on Midodrine per pulmonary medicine. She has received two fluid boluses per nephrology and blood pressure remains low. PHYSICAL EXAM: VITAL SIGNS: Reviewed. GENERAL: Well-developed in no acute distress. NECK: Supple. No JVD or thyromegaly LUNGS: Respirations even and unlabored. Lungs essentially clear to auscultation bilaterally. HEART: Regular rate and rhythm. S1 and S2 heard. Systolic murmur noted. EXTREMITIES: Normal range of motion. No clubbing or cyanosis. Peripheral pulses intact. No lower extremity edema ASSESSMENT: Hypotension Bradycardia Anemia End-stage renal disease on hemodialysis Diabetes History of CVA PLAN: Continue Midodine Continue IV fluid boluses per nephrology Hold all blood pressure medications for SBP less than 120 or HR less than 60 Continue to monitor blood pressure If no improvement in blood pressure, patient may require transfer back to ICU for vasopressor support. Will defer to Dr. Rajan. Patients condition was discussed in detail with Dr. Downs Nurse practitioner note has been reviewed by physician. Signing provider agrees with the documented findings, assessment, and plan of care. Objective - Vital Signs Vital signs: Vital Signs Temp 97.8 F 07/29/22 00:00 Pulse 49 L 07/29/22 10:35 Resp 16 07/29/22 00:00 BP 81/45 07/29/22 10:35 Pulse Ox 100 07/29/22 10:35 FiO2 Intake & Output 07/28/22 07/29/22 07/29/22 18:59 06:59 18:59 Intake Total 360 Balance 360 Weight 50.5 kg 54 kg Intake: Oral 360 Other: # Voids 0 - Labs CBC & Chem 7: 07/29/22 05:46 07/29/22 05:46 Labs: Abnormal Lab Results - Last 24 Hours (Table) 07/28/22 07/28/22 07/28/22 Range/Units 11:04 16:23 16:47 RBC (4.10-5.20) X 10*6/uL Hgb (12.0-15.0) g/dL Hct (37.2-46.3) % MCHC (32.0-37.0) g/dL Eosinophils # (0.04-0.35) X 10*3/uL Sodium (135-145) mmol/L Chloride (96-109) mmol/L Creatinine (0.6-1.5) mg/dL Est GFR (CKD-EPI)AfAm (60.0-200.0) Est GFR (CKD-EPI)NonAf (60.0-200.0) BUN/Creatinine Ratio (12.00-20.00) Ratio Glucose (70-110) mg/dL POC Glucose (mg/dL) 166 H 26 L 157 H (70-110) mg/dL Calcium (8.7-10.3) mg/dL 07/28/22 07/28/22 07/28/22 Range/Units 21:33 21:57 23:56 RBC (4.10-5.20) X 10*6/uL Hgb (12.0-15.0) g/dL Hct (37.2-46.3) % MCHC (32.0-37.0) g/dL Eosinophils # (0.04-0.35) X 10*3/uL Sodium (135-145) mmol/L Chloride (96-109) mmol/L Creatinine (0.6-1.5) mg/dL Est GFR (CKD-EPI)AfAm (60.0-200.0) Est GFR (CKD-EPI)NonAf (60.0-200.0) BUN/Creatinine Ratio (12.00-20.00) Ratio Glucose (70-110) mg/dL POC Glucose (mg/dL) 31 L 171 H 189 H (70-110) mg/dL Calcium (8.7-10.3) mg/dL 07/29/22 07/29/22 07/29/22 Range/Units 03:04 05:46 05:46 RBC 2.73 L (4.10-5.20) X 10*6/uL Hgb 7.4 L (12.0-15.0) g/dL Hct 23.5 L (37.2-46.3) % MCHC 31.5 L (32.0-37.0) g/dL Eosinophils # 0.60 H (0.04-0.35) X 10*3/uL Sodium 133 L (135-145) mmol/L Chloride 92 L (96-109) mmol/L Creatinine 4.4 H (0.6-1.5) mg/dL Est GFR (CKD-EPI)AfAm 14.4 L (60.0-200.0) Est GFR (CKD-EPI)NonAf 12.4 L (60.0-200.0) BUN/Creatinine Ratio 5.05 L (12.00-20.00) Ratio Glucose 305 H (70-110) mg/dL POC Glucose (mg/dL) 241 H (70-110) mg/dL Calcium 8.5 L (8.7-10.3) mg/dL 07/29/22 Range/Units 08:06 RBC (4.10-5.20) X 10*6/uL Hgb (12.0-15.0) g/dL Hct (37.2-46.3) % MCHC (32.0-37.0) g/dL Eosinophils # (0.04-0.35) X 10*3/uL Sodium (135-145) mmol/L Chloride (96-109) mmol/L Creatinine (0.6-1.5) mg/dL Est GFR (CKD-EPI)AfAm (60.0-200.0) Est GFR (CKD-EPI)NonAf (60.0-200.0) BUN/Creatinine Ratio (12.00-20.00) Ratio Glucose (70-110) mg/dL POC Glucose (mg/dL) 334 H (70-110) mg/dL Calcium (8.7-10.3) mg/dL Microbiology - Last 24 Hours (Table) 07/27/22 01:48 Blood Culture - Preliminary Blood No Growth after 48 hours
[2022-07-29 12:02] LABS: Glucose,Whole Blood 177 mg/dL (70-110)
--- NOTE | 2022-07-29 12:31 | P.PN ---
Subjective Patient is seen in follow-up for end-stage renal disease. blood pressure low this morning. She has received 1 L fluid bolus as well as midodrine. Denies chest pain or shortness of breath. Hard of hearing. Vital signs are stable. Blood pressure low. General: No acute distress. HEENT: Head exam is unremarkable. LUNGS: No audible rhonchi or wheezes. HEART: Rate and Rhythm are regular. ABDOMEN: No distention. EXTREMITITES: No edema. Objective - Vital Signs Vital signs: Vital Signs Temp 97.8 F 07/29/22 00:00 Pulse 52 L 07/29/22 12:04 Resp 16 07/29/22 00:00 BP 86/44 07/29/22 12:04 Pulse Ox 97 07/29/22 12:04 FiO2 Intake & Output 07/28/22 07/29/22 07/29/22 18:59 06:59 18:59 Intake Total 360 Balance 360 Weight 50.5 kg 54 kg Intake: Oral 360 Other: # Voids 0 - Labs CBC & Chem 7: 07/29/22 05:46 07/29/22 05:46 Labs: Abnormal Lab Results - Last 24 Hours (Table) 07/28/22 07/28/22 07/28/22 Range/Units 16:23 16:47 21:33 RBC (4.10-5.20) X 10*6/uL Hgb (12.0-15.0) g/dL Hct (37.2-46.3) % MCHC (32.0-37.0) g/dL Eosinophils # (0.04-0.35) X 10*3/uL Sodium (135-145) mmol/L Chloride (96-109) mmol/L Creatinine (0.6-1.5) mg/dL Est GFR (CKD-EPI)AfAm (60.0-200.0) Est GFR (CKD-EPI)NonAf (60.0-200.0) BUN/Creatinine Ratio (12.00-20.00) Ratio Glucose (70-110) mg/dL POC Glucose (mg/dL) 26 L 157 H 31 L (70-110) mg/dL Calcium (8.7-10.3) mg/dL 07/28/22 07/28/22 07/29/22 Range/Units 21:57 23:56 03:04 RBC (4.10-5.20) X 10*6/uL Hgb (12.0-15.0) g/dL Hct (37.2-46.3) % MCHC (32.0-37.0) g/dL Eosinophils # (0.04-0.35) X 10*3/uL Sodium (135-145) mmol/L Chloride (96-109) mmol/L Creatinine (0.6-1.5) mg/dL Est GFR (CKD-EPI)AfAm (60.0-200.0) Est GFR (CKD-EPI)NonAf (60.0-200.0) BUN/Creatinine Ratio (12.00-20.00) Ratio Glucose (70-110) mg/dL POC Glucose (mg/dL) 171 H 189 H 241 H (70-110) mg/dL Calcium (8.7-10.3) mg/dL 07/29/22 07/29/22 07/29/22 Range/Units 05:46 05:46 08:06 RBC 2.73 L (4.10-5.20) X 10*6/uL Hgb 7.4 L (12.0-15.0) g/dL Hct 23.5 L (37.2-46.3) % MCHC 31.5 L (32.0-37.0) g/dL Eosinophils # 0.60 H (0.04-0.35) X 10*3/uL Sodium 133 L (135-145) mmol/L Chloride 92 L (96-109) mmol/L Creatinine 4.4 H (0.6-1.5) mg/dL Est GFR (CKD-EPI)AfAm 14.4 L (60.0-200.0) Est GFR (CKD-EPI)NonAf 12.4 L (60.0-200.0) BUN/Creatinine Ratio 5.05 L (12.00-20.00) Ratio Glucose 305 H (70-110) mg/dL POC Glucose (mg/dL) 334 H (70-110) mg/dL Calcium 8.5 L (8.7-10.3) mg/dL 07/29/22 Range/Units 11:43 RBC (4.10-5.20) X 10*6/uL Hgb (12.0-15.0) g/dL Hct (37.2-46.3) % MCHC (32.0-37.0) g/dL Eosinophils # (0.04-0.35) X 10*3/uL Sodium (135-145) mmol/L Chloride (96-109) mmol/L Creatinine (0.6-1.5) mg/dL Est GFR (CKD-EPI)AfAm (60.0-200.0) Est GFR (CKD-EPI)NonAf (60.0-200.0) BUN/Creatinine Ratio (12.00-20.00) Ratio Glucose (70-110) mg/dL POC Glucose (mg/dL) 177 H (70-110) mg/dL Calcium (8.7-10.3) mg/dL Microbiology - Last 24 Hours (Table) 07/27/22 01:48 Blood Culture - Preliminary Blood No Growth after 48 hours Assessment and Plan Plan: Assessment: 1. End-stage renal disease maintained on hemodialysis on Monday schedule. 2. Acute blood loss anemia status post blood transfusion. No active bleeding. Status post IV DDAVP. On Aranesp. 3. 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 4. Hypertension with chronic kidney disease. blood pressure low today. 5. Brittle diabetes. Plan: hold off on hemodialysis today as blood pressure is low. Plan for treatment tomorrow. Maintain midodrine. Hold for systolic blood pressure greater than 1:15. Hold all antihypertensives. Give another 500 mL bolus of normal saline now. Transfer to ICU for possible vasopressor support. also noted to be bradycardic. Coreg held. Cardiology consulted.
[2022-07-29 13:15] LABS: Glucose,Whole Blood 75 mg/dL (70-110)
[2022-07-29] MEDS ORDERED: NOREPINEPHRINE 4 MG in SODIUM CHLORIDE 0.9% 250 ML IV SCH (13:45)
[2022-07-29 14:35] LABS: Glucose,Whole Blood 33 mg/dL (70-110)
[2022-07-29] MEDS ORDERED: DEXTROSE 50% SYRINGE 50 ML IVP STA (14:55)
[2022-07-29 14:57] LABS: Glucose,Whole Blood 24 mg/dL (70-110)
--- NOTE | 2022-07-29 15:18 | P.PN ---
Subjective Progress Note Date: 07/29/22 Principal diagnosis: Hypertension, possible accidental overdose I'm seeing this patient in new consultation today 07/27/2022 in the intensive care unit. This is a pleasant 31-year-old white female with past medical history of end-stage renal disease, receiving hemodialysis normally Monday, type 1 diabetes mellitus, brittle glucose control, multiple previous ICU admissions for DKA, previous cardiac arrests related to hyperkalemia, CVA, diabetic retinopathy, legally blind, hypertension, neuropathy. Patient did have a recent ICU admission on 07/11/2022 for hypotension and ultimately cardiac arrest related to hyperkalemia. Patient did make a full recovery, and was discharged home on 07/19/2022. Prior to this admission, patient was at home, with chief complaint of generalized weakness. She did take her blood pressure which was low. Apparently, patient may have taken more of her antihypertensive medications than ordered. Patient denies any suicidal ideation. Patient was brought to [facility] where she was found to be hypotensive and bradycardic, she was given one dose of atropine and started transiently on dopamine infusion. Dopamine infusion was discontinued, and patient was started on a norepinephrine infusion. This is currently paused. Patient's ECG on arrival showed sinus bradycardia at 44 bpm. Heart rate is currently normal sinus rhythm in the 60s. Patient is currently resting in bed, on 2 L nasal cannula, in no acute distress. Patient's chest x-ray on arrival showed some cardiomegaly and mild pulmonary interstitial edema. Patient's BMP on arrival showed a sodium 129, potassium 4.6, chloride 88, serum CO2 21, BUN 40, creatinine 4.57, glucose 239. Patient's lactic was elevated at 7.1 and is trending down currently 6.1. Patient was given a 1 L normal saline bolus in the ER. BNP was elevated at 85,900. Echocardiogram is pending. LFTs were mildly elevated. No IV maintenance fluids infusing using. Blood glucose is being managed by admitting physician. Currently is receiving scheduled NovoLog 6 units before meals, Levemir 12 units daily. Patient's hemoglobin on arrival was low at 6.6, and is chronically low. Patient has received 1 unit PRBC. No signs of overt signs of bleeding. Patient's WBC count is 4.3, platelets 222,000. Patient denies cough, shortness breath, fever, chest pain. Patient is empirically covered on vancomycin. Afebrile. Vital signs are stable. I am reevaluating this patient today 07/28/2022 in follow-up the general medical floor. Patient currently resting in bed, on 4 L nasal cannula, in no acute distress. She denies any pulmonary complaints. Blood pressure and heart rate have remained stable without any vasopressor support. Patient was restarted on her home cardiac meds. Patient's echocardiogram from yesterday showed a preserved ejection fraction of 55-60% with some moderate to severe left ventricular hypertrophy. Blood cultures remain negative at 24 hours. Patient's CBC from today is stable with a WBC count of 3.9, hemoglobin 7.6, hematocrit 22.6, platelets 180,000. Patient's BMP from today shows a sodium 130, potassium 3.7, chloride 94, serum CO2 31, BUN 15, creatinine improved to 2.6, glucose 145. Blood sugars were fairly well-controlled overnight. Vital signs remain stable. I am reevaluating this patient today 07/29/2022 in follow-up in intensive care unit. Patient was transferred back to the intensive care unit by cardiology for hypotension this afternoon. Patient was started on midodrine 10 mg 3 times a day. Patient has not required any vasopressor support. Patient has received a total of 1.5 L normal saline bolus. No IV maintenance fluids infusing. Blood pressure currently 90/55 mmHg. Patient is clinically asymptomatic, resting in bed on 6 L nasal cannula, in no acute distress. No new chest x-ray today. Blood cultures show no growth at 48 hours. Should CBC from today shows a WBC count of 5.4, hemoglobin stable at 7.4, hematocrit 23.5, platelets 250,000. Patient's BMP from today shows a sodium 133, potassium 4.4, chloride 92, serum CO2 26.7, BUN 22, creatinine 4.4, glucose 305. Blood glucose continues to vary widely throughout the day. Patient was hypoglycemic this afternoon. Hypoglycemia being treated per protocol. Blood sugars are being controlled by admitting physician with a combination of NovoLog 6 units before meals and Levemir 12 units daily. Vital signs are stable at this time. Objective - Vital Signs Vital signs: Vital Signs Temp 97.8 F 07/29/22 00:00 Pulse 52 L 07/29/22 12:04 Resp 16 07/29/22 00:00 BP 86/44 07/29/22 12:04 Pulse Ox 97 07/29/22 12:04 FiO2 Intake & Output 07/28/22 07/29/22 07/29/22 18:59 06:59 18:59 Intake Total 360 Balance 360 Weight 50.5 kg 54 kg Intake: Oral 360 Other: # Voids 0 - Exam GENERAL EXAM: Alert, 31-year-old white female, comfortable in no apparent distress. HEAD: Normocephalic and atraumatic EYES: Normal reaction of pupils, equal size. NOSE: Clear with pink turbinates. THROAT: No erythema or exudates. NECK: No masses, no JVD. CHEST: No chest wall deformity. LUNGS: Equal air entry with no crackles, wheeze, rhonchi or dullness. On 6 L nasal cannula. No conversational dyspnea or accessory muscle use.. CVS: S1 and S2 normal with no audible murmur, regular rhythm. No extra heart sounds ABDOMEN: No hepatosplenomegaly, active bowel sounds, no guarding or rigidity. SPINE: No scoliosis or deformity SKIN: No rashes CENTRAL NERVOUS SYSTEM: No focal deficits, tone is normal in all 4 extremities. EXTREMITIES: There is no peripheral edema, clubbing, or cyanosis. Left arm fist karissa with positive thrill and bruit. Peripheral pulses are intact. - Labs CBC & Chem 7: 07/29/22 05:46 07/29/22 05:46 Labs: Abnormal Lab Results - Last 24 Hours (Table) 07/28/22 07/28/22 07/28/22 Range/Units 16:23 16:47 21:33 RBC (4.10-5.20) X 10*6/uL Hgb (12.0-15.0) g/dL Hct (37.2-46.3) % MCHC (32.0-37.0) g/dL Eosinophils # (0.04-0.35) X 10*3/uL Sodium (135-145) mmol/L Chloride (96-109) mmol/L Creatinine (0.6-1.5) mg/dL Est GFR (CKD-EPI)AfAm (60.0-200.0) Est GFR (CKD-EPI)NonAf (60.0-200.0) BUN/Creatinine Ratio (12.00-20.00) Ratio Glucose (70-110) mg/dL POC Glucose (mg/dL) 26 L 157 H 31 L (70-110) mg/dL Calcium (8.7-10.3) mg/dL 07/28/22 07/28/22 07/29/22 Range/Units 21:57 23:56 03:04 RBC (4.10-5.20) X 10*6/uL Hgb (12.0-15.0) g/dL Hct (37.2-46.3) % MCHC (32.0-37.0) g/dL Eosinophils # (0.04-0.35) X 10*3/uL Sodium (135-145) mmol/L Chloride (96-109) mmol/L Creatinine (0.6-1.5) mg/dL Est GFR (CKD-EPI)AfAm (60.0-200.0) Est GFR (CKD-EPI)NonAf (60.0-200.0) BUN/Creatinine Ratio (12.00-20.00) Ratio Glucose (70-110) mg/dL POC Glucose (mg/dL) 171 H 189 H 241 H (70-110) mg/dL Calcium (8.7-10.3) mg/dL 07/29/22 07/29/22 07/29/22 Range/Units 05:46 05:46 08:06 RBC 2.73 L (4.10-5.20) X 10*6/uL Hgb 7.4 L (12.0-15.0) g/dL Hct 23.5 L (37.2-46.3) % MCHC 31.5 L (32.0-37.0) g/dL Eosinophils # 0.60 H (0.04-0.35) X 10*3/uL Sodium 133 L (135-145) mmol/L Chloride 92 L (96-109) mmol/L Creatinine 4.4 H (0.6-1.5) mg/dL Est GFR (CKD-EPI)AfAm 14.4 L (60.0-200.0) Est GFR (CKD-EPI)NonAf 12.4 L (60.0-200.0) BUN/Creatinine Ratio 5.05 L (12.00-20.00) Ratio Glucose 305 H (70-110) mg/dL POC Glucose (mg/dL) 334 H (70-110) mg/dL Calcium 8.5 L (8.7-10.3) mg/dL 07/29/22 07/29/22 07/29/22 Range/Units 11:43 14:28 14:53 RBC (4.10-5.20) X 10*6/uL Hgb (12.0-15.0) g/dL Hct (37.2-46.3) % MCHC (32.0-37.0) g/dL Eosinophils # (0.04-0.35) X 10*3/uL Sodium (135-145) mmol/L Chloride (96-109) mmol/L Creatinine (0.6-1.5) mg/dL Est GFR (CKD-EPI)AfAm (60.0-200.0) Est GFR (CKD-EPI)NonAf (60.0-200.0) BUN/Creatinine Ratio (12.00-20.00) Ratio Glucose (70-110) mg/dL POC Glucose (mg/dL) 177 H 33 L 24 L (70-110) mg/dL Calcium (8.7-10.3) mg/dL Microbiology - Last 24 Hours (Table) 07/27/22 01:48 Blood Culture - Preliminary Blood No Growth after 48 hours Assessment and Plan Assessment: Hypotension and sinus bradycardia, could potentially be related to patient accidentally taking too many of her cardiac meds. Patient was treated with 1 dose of atropine and transient dopamine infusion on admission,, which was ultimately discontinued. Patient was then treated with Levophed initially in the ICU, this had resolved, and patient was transferred out to the floor yesterday. This afternoon, patient developed some recurrent hypotension, and was transferred back to the intensive care unit per cardiology recommendation. Patient was started on Midodrine. Hypovolemic shock with a hemoglobin on admission of 6.6 g/dL. Patient was transfused 1 unit PRBCs. Hemoglobin is stable End-stage renal disease normally receives hemodialysis Monday, Monday, Monday. Chronic anemia Diabetes mellitus type 1 with extremely brittle blood sugar control. Previous history of cardiac arrest related to hyperkalemia on 07/11/2022 and a p revious event in January 2022. History of CVA without residual Diabetic retinopathy and the patient is legally blind Diabetic neuropathy Restless leg syndrome Depression, denies any current suicidal ideation Plan: Patient's medications, labs reviewed Continue supplemental oxygen to maintain oxygen saturation of 92% or greater Blood pressure and heart rate remain stable off vasopressor support Continue midodrine 3 times a day Hemodialysis Monday, Monday, Monday Treat hypoglycemia per protocol Repeat labs and chest x-ray tomorrow We will continue to follow I have personally seen and examined the patient, performed the documentation and the assessment and plan as written. Number of minutes spent on the visit:20 Time with Patient: Greater than 30
[2022-07-29 15:22] LABS: Glucose,Whole Blood 142 mg/dL (70-110)
[2022-07-29 16:46] LABS: Glucose,Whole Blood 111 mg/dL (70-110)
--- NOTE | 2022-07-29 19:13 | PN ---
PROGRESS NOTE LOCATION: 532. CHIEF COMPLAINT: Stage 5 CKD, hypotension, history of hypertension, and diabetes. HISTORY OF PRESENT ILLNESS: This lady is doing well, and the numbers are quite good. Blood pressure has come up into a normal range. Blood sugars are adequate. PHYSICAL EXAMINATION: CHEST: Clear. CARDIAC: Normal. ABDOMEN: Soft and nontender. IMPRESSION: 1. Hypotension. 2. History of hypertension. 3. Uncontrolled type 1 diabetes mellitus. 4. Anemia. 5. Amblyopia. PLAN: If she remains this stable, she can be discharged any time. MMODL / IJN: [id number] /
[2022-07-29 19:43] LABS: Glucose,Whole Blood 100 mg/dL (70-110)
[2022-07-29] MEDS: MELATONIN 5 MG TABLET PO SCH (20:14)
[2022-07-29] MEDS: FAMOTIDINE 20 MG TAB PO SCH (20:14)
[2022-07-29] MEDS: MIRTAZAPINE 15 MG TAB PO SCH (20:15)
[2022-07-29] MEDS: diphenhydrAMINE 50 MG/ML 1 ML VIAL IVP PRN (20:16)
[2022-07-29] MEDS ORDERED: VANCOMYCIN 750 MG in SODIUM CHLORIDE 0.9% 250 ML IVPB ONE (21:00)
--- NOTE | 2022-07-29 23:55 | PN ---
PROGRESS NOTE DATE OF SERVICE: 07/29/2022 CHIEF COMPLAINT: Hypotension. HISTORY OF PRESENT ILLNESS: This lady's blood pressure is not responding. It is remaining quite low. Her blood sugars also are lower than usual. Other than that, she seems stable. PHYSICAL EXAMINATION: GENERAL: She remains pale and dehydrated. She is awake and alert. CHEST: Clear. CARDIAC: Normal sinus rhythm. ABDOMEN: Soft. IMPRESSION: 1. Hypotension. 2. Hypoglycemia. 3. Stage 5 chronic kidney disease. 4. Usually uncontrolled hypertension and diabetes. PLAN: Cancel all her medications that could be holding her blood pressure down. MMODL / IJN: [id number] /
[2022-07-30] MEDS: hydrOXYzine HCL 25 MG TAB PO PRN (00:47)
[2022-07-30 01:12] LABS: Glucose,Whole Blood 187 mg/dL (70-110)
[2022-07-30 05:51] LABS: Potassium 4.2 mmol/L (3.5-5.1)
[2022-07-30 05:51] LABS: Glucose,Whole Blood 210 mg/dL (70-110)
[2022-07-30 05:52] LABS: Albumin 3.5 g/dL (3.5-5.0); Total Bilirubin 0.6 mg/dL (0.2-1.3); Total Protein 5.9 g/dL (6.3-8.2)
[2022-07-30 05:59] LABS: MCH 28.6 pg (25.0-35.0); MCHC 33.5 g/dL (31.0-37.0); MCV 85.3 fL (80.0-100.0); Mean Platelet Volume 10.3; Platelet Count 275 k/uL (150-450); RBC 2.81 m/uL (3.80-5.40); RDW 14.4 % (11.5-15.5); WBC 9.3 k/uL (3.8-10.6)
[2022-07-30] MEDS: INSULIN ASPART (NovoLOG) 100 UNIT/ML VIAL SQ SCH ×3 (06:35→16:53)
[2022-07-30] MEDS: HYDROmorphone 1 MG/ML 1 ML SYRINGE IVP PRN ×3 (06:35→19:36)
[2022-07-30] MEDS: INSULIN DETEMIR (LEVEMIR) 100 UNIT/ML SYR SQ SCH (06:35)
[2022-07-30] MEDS: CALCIUM ACETATE 667 MG TAB PO SCH ×3 (06:36→16:11)
[2022-07-30] MEDS: MIDODRINE 5 MG TAB PO SCH ×3 (06:36→16:11)
--- NOTE | 2022-07-30 07:40 | P.PN ---
Subjective Progress Note Date: 07/30/22 The patient is a 51-year-old female patient with a past medical history significant for stage renal disease on dialysis was admitted to the hospital with hypotension and subsequently she was transferred to the intensive care unit. 07/30/2022 The patient was seen this morning. She is not on any vasopressors or inotrope at this point. Her pressure and heart rate has been within normal limits. She is on midodrine. She is asymptomatic and overall hemodynamically stable. From a cardiovascular standpoint of view, the patient can be transferred out of the intensive. She underwent an echo which revealed normal biventricular systolic function with moderate concentric left ventricular hypertrophy. Assessment End-stage renal disease on dialysis Hypotension which has resolved Plan Continue the current medical regimen The patient can be transferred out of the intensive care unit Objective - Vital Signs Vital signs: Vital Signs Temp 97.7 F 07/30/22 04:00 Pulse 73 07/30/22 07:00 Resp 22 07/30/22 07:00 BP 119/74 07/30/22 07:00 Pulse Ox 95 07/30/22 07:00 FiO2 Intake & Output 07/29/22 07/30/22 07/30/22 18:59 06:59 18:59 Intake Total 440 500 Output Total 0 0 0 Balance 440 500 0 Weight 54.2 kg Intake: Intake, IV Titration 250 Amount Vancomycin 750 mg In 250 Sodium Chloride 0.9% 250 ml @ 125 mls/hr IVPB ONCE ONE Rx#:[id number] Tube Feeding 440 250 Output: Urine 0 0 0 Other: # Voids 0 - Labs CBC & Chem 7: 07/30/22 05:12 07/30/22 05:12 Labs: Abnormal Lab Results - Last 24 Hours (Table) 07/29/22 07/29/22 07/29/22 Range/Units 05:46 05:46 08:06 RBC 2.73 L (4.10-5.20) X 10*6/uL Hgb 7.4 L (12.0-15.0) g/dL Hct 23.5 L (37.2-46.3) % MCHC 31.5 L (32.0-37.0) g/dL Eosinophils # 0.60 H (0.04-0.35) X 10*3/uL Sodium 133 L (135-145) mmol/L Chloride 92 L (96-109) mmol/L BUN (7-17) mg/dL Creatinine 4.4 H (0.6-1.5) mg/dL Est GFR (CKD-EPI)AfAm 14.4 L (60.0-200.0) Est GFR (CKD-EPI)NonAf 12.4 L (60.0-200.0) BUN/Creatinine Ratio 5.05 L (12.00-20.00) Ratio Glucose 305 H (70-110) mg/dL POC Glucose (mg/dL) 334 H (70-110) mg/dL Calcium 8.5 L (8.7-10.3) mg/dL AST (14-36) U/L ALT (4-34) U/L Alkaline Phosphatase (38-126) U/L Total Protein (6.3-8.2) g/dL 07/29/22 07/29/22 07/29/22 Range/Units 11:43 14:28 14:53 RBC (4.10-5.20) X 10*6/uL Hgb (12.0-15.0) g/dL Hct (37.2-46.3) % MCHC (32.0-37.0) g/dL Eosinophils # (0.04-0.35) X 10*3/uL Sodium (135-145) mmol/L Chloride (96-109) mmol/L BUN (7-17) mg/dL Creatinine (0.6-1.5) mg/dL Est GFR (CKD-EPI)AfAm (60.0-200.0) Est GFR (CKD-EPI)NonAf (60.0-200.0) BUN/Creatinine Ratio (12.00-20.00) Ratio Glucose (70-110) mg/dL POC Glucose (mg/dL) 177 H 33 L 24 L (70-110) mg/dL Calcium (8.7-10.3) mg/dL AST (14-36) U/L ALT (4-34) U/L Alkaline Phosphatase (38-126) U/L Total Protein (6.3-8.2) g/dL 07/29/22 07/29/22 07/30/22 Range/Units 15:21 16:34 01:11 RBC (4.10-5.20) X 10*6/uL Hgb (12.0-15.0) g/dL Hct (37.2-46.3) % MCHC (32.0-37.0) g/dL Eosinophils # (0.04-0.35) X 10*3/uL Sodium (135-145) mmol/L Chloride (96-109) mmol/L BUN (7-17) mg/dL Creatinine (0.6-1.5) mg/dL Est GFR (CKD-EPI)AfAm (60.0-200.0) Est GFR (CKD-EPI)NonAf (60.0-200.0) BUN/Creatinine Ratio (12.00-20.00) Ratio Glucose (70-110) mg/dL POC Glucose (mg/dL) 142 H 111 H 187 H (70-110) mg/dL Calcium (8.7-10.3) mg/dL AST (14-36) U/L ALT (4-34) U/L Alkaline Phosphatase (38-126) U/L Total Protein (6.3-8.2) g/dL 07/30/22 07/30/22 07/30/22 Range/Units 05:12 05:12 05:49 RBC 2.81 L (4.10-5.20) X 10*6/uL Hgb 8.0 L (12.0-15.0) g/dL Hct 24.0 L (37.2-46.3) % MCHC (32.0-37.0) g/dL Eosinophils # (0.04-0.35) X 10*3/uL Sodium 131 L (135-145) mmol/L Chloride 93 L (96-109) mmol/L BUN 32 H (7-17) mg/dL Creatinine 5.27 H (0.6-1.5) mg/dL Est GFR (CKD-EPI)AfAm (60.0-200.0) Est GFR (CKD-EPI)NonAf (60.0-200.0) BUN/Creatinine Ratio (12.00-20.00) Ratio Glucose 195 H (70-110) mg/dL POC Glucose (mg/dL) 210 H (70-110) mg/dL Calcium 8.0 L (8.7-10.3) mg/dL AST 733 H (14-36) U/L ALT 376 H (4-34) U/L Alkaline Phosphatase 687 H (38-126) U/L Total Protein 5.9 L (6.3-8.2) g/dL Microbiology - Last 24 Hours (Table) 07/27/22 01:48 Blood Culture - Preliminary Blood No Growth after 72 hours
[2022-07-30] MEDS: ASPIRIN 81 MG PO SCH (08:38)
[2022-07-30] MEDS: buPROPion SR 150 MG TABLET.ER PO SCH ×2 (08:39→19:45)
[2022-07-30] MEDS: ATORVASTATIN 40 MG TAB PO SCH (08:39)
[2022-07-30] MEDS: CYANOCOBALAMIN 500 MCG TAB PO SCH (08:39)
[2022-07-30] MEDS: DULoxetine HCL 30 MG CAPSULE.DR PO SCH ×2 (08:39→19:45)
[2022-07-30] MEDS: TORSEMIDE 20 MG TAB PO SCH ×2 (08:39→19:45)
[2022-07-30] MEDS: LORazepam 1 MG TAB PO PRN (08:43)
[2022-07-30] MEDS: diphenhydrAMINE 50 MG/ML 1 ML VIAL IVP PRN (11:08)
--- NOTE | 2022-07-30 11:31 | XR ---
EXAMINATION TYPE: XR chest 1V portable DATE OF EXAM: 07/30/2022 10:20 AM COMPARISON: Chest radiographs from 07/27/2022 TECHNIQUE: XR chest 1V portable Portable AP radiograph of the chest. CLINICAL INDICATION:Female, 31 years old with history of CHF; FINDINGS: Lungs/Pleura: Blunting of the right costophrenic angle. There is no evidence of focal consolidation, or pneumothorax. Pulmonary vascularity: Unremarkable. Heart/mediastinum: Cardiomediastinal silhouette is enlarged and stable. Musculoskeletal: No acute osseous pathology. IMPRESSION: Cardiomegaly with small right pleural fusion. Correlate with serum BNP.
[2022-07-30 11:51] LABS: Glucose,Whole Blood 81 mg/dL (70-110)
--- NOTE | 2022-07-30 13:15 | P.PN ---
Subjective Progress Note Date: 07/30/22 I'm seeing this patient in new consultation today 07/27/2022 in the intensive care unit. This is a pleasant 31-year-old white female with past medical history of end-stage renal disease, receiving hemodialysis normally Monday, type 1 diabetes mellitus, brittle glucose control, multiple p revious ICU admissions for DKA, previous cardiac arrests related to hyperkalemia, CVA, diabetic retinopathy, legally blind, hypertension, neuropathy. Patient did have a recent ICU admission on 07/11/2022 for hypotension and ultimately cardiac arrest related to hyperkalemia. Patient did make a full recovery, and was discharged home on 07/19/2022. Prior to this admission, patient was at home, with chief complaint of generalized weakness. She did take her blood pressure which was low. Apparently, patient may have taken more of her antihypertensive medications than ordered. Patient denies any suicidal ideation. Patient was brought to [facility] where she was found to be hypotensive and bradycardic, she was given one dose of atropine and started transiently on dopamine infusion. Dopamine infusion was discontinued, and patient was started on a norepinephrine infusion. This is currently paused. Patient's ECG on arrival showed sinus bradycardia at 44 bpm. Heart rate is currently normal sinus rhythm in the 60s. Patient is currently resting in bed, on 2 L nasal cannula, in no acute distress. Patient's chest x-ray on arrival showed some cardiomegaly and mild pulmonary interstitial edema. Patient's BMP on arrival showed a sodium 129, potassium 4.6, chloride 88, serum CO2 21, BUN 40, creatinine 4.57, glucose 239. Patient's lactic was elevated at 7.1 and is trending down currently 6.1. Patient was given a 1 L normal saline bolus in the ER. BNP was elevated at 85,900. Echocardiogram is pending. LFTs were mildly elevated. No IV maintenance fluids infusing using. Blood glucose is being managed by admitting physician. Currently is receiving scheduled NovoLog 6 u nits before meals, Levemir 12 units daily. Patient's hemoglobin on arrival was low at 6.6, and is chronically low. Patient has received 1 unit PRBC. No signs of overt signs of bleeding. Patient's WBC count is 4.3, platelets 222,000. Patient denies cough, shortness breath, fever, chest pain. Patient is empirically covered on vancomycin. Afebrile. Vital signs are stable. I am reevaluating this patient today 07/28/2022 in follow-up the general medical floor. Patient currently resting in bed, on 4 L nasal cannula, in no acute distress. She denies any pulmonary complaints. Blood pressure and heart rate have remained stable without any vasopressor support. Patient was restarted on her home cardiac meds. Patient's echocardiogram from yesterday showed a preserved ejection fraction of 55-60% with some moderate to severe left ventricular hypertrophy. Blood cultures remain negative at 24 hours. Patient's CBC from today is stable with a WBC count of 3.9, hemoglobin 7.6, hematocrit 22.6, platelets 180,000. Patient's BMP from today shows a sodium 130, potassium 3.7, chloride 94, serum CO2 31, BUN 15, creatinine improved to 2.6, glucose 145. Blood sugars were fairly well-controlled overnight. Vital signs remain stable. I am reevaluating this patient today 07/29/2022 in follow-up in intensive care unit. Patient was transferred back to the intensive care unit by cardiology for hypotension this afternoon. Patient was started on midodrine 10 mg 3 times a day. Patient has not required any vasopressor support. Patient has received a total of 1.5 L normal saline bolus. No IV maintenance fluids infusing. Blood pressure currently 90/55 mmHg. Patient is clinically asymptomatic, resting in bed on 6 L nasal cannula, in no acute distress. No new chest x-ray today. Blo od cultures show no growth at 48 hours. Should CBC from today shows a WBC count of 5.4, hemoglobin stable at 7.4, hematocrit 23.5, platelets 250,000. Patient's BMP from today shows a sodium 133, potassium 4.4, chloride 92, serum CO2 26.7, BUN 22, creatinine 4.4, glucose 305. Blood glucose continues to vary widely throughout the day. Patient was hypoglycemic this afternoon. Hypoglycemia being treated per protocol. Blood sugars are being controlled by admitting physician with a combination of NovoLog 6 units before meals and Levemir 12 units daily. Vital signs are stable at this time. The patient is seen today 07/30/2022 in follow-up in the intensive care unit. She is currently awake and alert in no acute distress. Maintaining good O2 saturations in the 90s on 2 L/m per nasal cannula. No IV fluids. She did not require any pressor support while here in the ICU. Chest x-ray revealed cardiomegaly with small right effusion. Cultures reveal no growth to date. White count 9.3. Hemoglobin 8.0. Platelets 275. Sodium 131. By potassium 4.2. Bicarb 25. BUN 32. Creatinine 5.27. Glucose 195. AST 733. ALT 373. Status post 1 unit of packed red blood cells this admission. Objective - Vital Signs Vital signs: Vital Signs Temp 98.2 F 07/30/22 08:00 Pulse 71 07/30/22 11:00 Resp 12 07/30/22 11:00 BP 133/76 07/30/22 11:00 Pulse Ox 94 L 07/30/22 11:00 FiO2 Intake & Output 07/29/22 07/30/22 07/30/22 18:59 06:59 18:59 Intake Total 440 500 200 Output Total 0 0 0 Balance 440 500 200 Weight 54.2 kg Intake: Intake, IV Titration 250 Amount Vancomycin 750 mg In 250 Sodium Chloride 0.9% 250 ml @ 125 mls/hr IVPB ONCE ONE Rx#:[id number] Oral 200 Tube Feeding 440 250 Output: Urine 0 0 0 Other: # Voids 0 - Exam GENERAL EXAM: Alert, cachectic 31-year-old female, on 2 L nasal cannula, comfortable in no apparent distress. HEAD: Normocephalic and atraumatic EYES: Normal reaction of pupils, equal size. NOSE: Clear with pink turbinates. THROAT: No erythema or exudates. NECK: No masses, no JVD. CHEST: No chest wall deformity. LUNGS: Equal air entry with no crackles, wheeze, rhonchi or dullness. CVS: S1 and S2 normal with no audible murmur, regular rhythm. No extra heart sounds ABDOMEN: No hepatosplenomegaly, active bowel sounds, no guarding or rigidity. SPINE: No scoliosis or deformity SKIN: No rashes CENTRAL NERVOUS SYSTEM: No focal deficits, tone is normal in all 4 extremities. EXTREMITIES: There is no peripheral edema, clubbing, or cyanosis. Left arm fistula with positive thrill and bruit. Peripheral pulses are intact. - Labs CBC & Chem 7: 07/30/22 05:12 07/30/22 05:12 Labs: Abnormal Lab Results - Last 24 Hours (Table) 07/29/22 07/29/22 07/29/22 Range/Units 14:28 14:53 15:21 RBC (3.80-5.40) m/uL Hgb (11.4-16.0) gm/dL Hct (34.0-46.0) % Sodium (137-145) mmol/L Chloride (98-107) mmol/L BUN (7-17) mg/dL Creatinine (0.52-1.04) mg/dL Glucose (74-99) mg/dL POC Glucose (mg/dL) 33 L 24 L 142 H (70-110) mg/dL Calcium (8.4-10.2) mg/dL AST (14-36) U/L ALT (4-34) U/L Alkaline Phosphatase (38-126) U/L Total Protein (6.3-8.2) g/dL 07/29/22 07/30/22 07/30/22 Range/Units 16:34 01:11 05:12 RBC 2.81 L (3.80-5.40) m/uL Hgb 8.0 L (11.4-16.0) gm/dL Hct 24.0 L (34.0-46.0) % Sodium (137-145) mmol/L Chloride (98-107) mmol/L BUN (7-17) mg/dL Creatinine (0.52-1.04) mg/dL Glucose (74-99) mg/dL POC Glucose (mg/dL) 111 H 187 H (70-110) mg/dL Calcium (8.4-10.2) mg/dL AST (14-36) U/L ALT (4-34) U/L Alkaline Phosphatase (38-126) U/L Total Protein (6.3-8.2) g/dL 07/30/22 07/30/22 Range/Units 05:12 05:49 RBC (3.80-5.40) m/uL Hgb (11.4-16.0) gm/dL Hct (34.0-46.0) % Sodium 131 L (137-145) mmol/L Chloride 93 L (98-107) mmol/L BUN 32 H (7-17) mg/dL Creatinine 5.27 H (0.52-1.04) mg/dL Glucose 195 H (74-99) mg/dL POC Glucose (mg/dL) 210 H (70-110) mg/dL Calcium 8.0 L (8.4-10.2) mg/dL AST 733 H (14-36) U/L ALT 376 H (4-34) U/L Alkaline Phosphatase 687 H (38-126) U/L Total Protein 5.9 L (6.3-8.2) g/dL Microbiology - Last 24 Hours (Table) 07/27/22 01:48 Blood Culture - Preliminary Blood No Growth after 72 hours Assessment and Plan Assessment: Hypotension and sinus bradycardia, could potentially be related to patient accidentally taking too many of her cardiac meds. Patient was treated with 1 dose of atropine and transient dopamine infusion on admission, which was ultimately discontinued. Hypovolemic shock with a hemoglobin on admission of 6.6 g/dL. Patient was transfused 1 unit PRBCs. Hemoglobin is stable currently at 8.0 End-stage renal disease normally receives hemodialysis Monday, Monday, Monday. Chronic anemia Diabetes mellitus type 1 with extremely brittle blood sugar control. Previous history of cardiac arrest related to hyperkalemia on 07/11/2022 and a previous event in January 2022. History of CVA without residual Diabetic retinopathy and the patient is legally blind Diabetic neuropathy Restless leg syndrome Depression, denies any current suicidal ideation In: The patient was seen and evaluated Stable and on 2 L nasal cannula Labs and medications reviewed Cleared for transfer to the regular medical floor with telemetry We'll continue to follow I have personally seen and examined the patient, performed the documentation and the assessment and plan as written. Number of minutes spent on the visit: 10.
--- NOTE | 2022-07-30 16:30 | P.PN ---
Subjective Progress Note Date: 07/30/22 Follow-up for ESRD. Ongoing dialysis, tolerating well. Objective - Vital Signs Vital signs: Vital Signs Temp 97.8 F 07/30/22 15:01 Pulse 70 07/30/22 15:01 Resp 16 07/30/22 15:01 BP 136/77 07/30/22 15:01 Pulse Ox 86 L 07/30/22 15:01 FiO2 Intake & Output 07/29/22 07/30/22 07/30/22 18:59 06:59 18:59 Intake Total 440 500 200 Output Total 0 0 0 Balance 440 500 200 Weight 54.2 kg Intake: Intake, IV Titration 250 Amount Vancomycin 750 mg In 250 Sodium Chloride 0.9% 250 ml @ 125 mls/hr IVPB ONCE ONE Rx#:[id number] Oral 200 Tube Feeding 440 250 Output: Urine 0 0 0 Other: # Voids 0 - Exam No acute distress S1-S2 heard Decreased breath sounds No edema - Labs CBC & Chem 7: 07/30/22 05:12 07/30/22 05:12 Labs: Abnormal Lab Results - Last 24 Hours (Table) 07/29/22 07/30/22 07/30/22 Range/Units 16:34 01:11 05:12 RBC 2.81 L (3.80-5.40) m/uL Hgb 8.0 L (11.4-16.0) gm/dL Hct 24.0 L (34.0-46.0) % Sodium (137-145) mmol/L Chloride (98-107) mmol/L BUN (7-17) mg/dL Creatinine (0.52-1.04) mg/dL Glucose (74-99) mg/dL POC Glucose (mg/dL) 111 H 187 H (70-110) mg/dL Calcium (8.4-10.2) mg/dL AST (14-36) U/L ALT (4-34) U/L Alkaline Phosphatase (38-126) U/L Total Protein (6.3-8.2) g/dL 07/30/22 07/30/22 Range/Units 05:12 05:49 RBC (3.80-5.40) m/uL Hgb (11.4-16.0) gm/dL Hct (34.0-46.0) % Sodium 131 L (137-145) mmol/L Chloride 93 L (98-107) mmol/L BUN 32 H (7-17) mg/dL Creatinine 5.27 H (0.52-1.04) mg/dL Glucose 195 H (74-99) mg/dL POC Glucose (mg/dL) 210 H (70-110) mg/dL Calcium 8.0 L (8.4-10.2) mg/dL AST 733 H (14-36) U/L ALT 376 H (4-34) U/L Alkaline Phosphatase 687 H (38-126) U/L Total Protein 5.9 L (6.3-8.2) g/dL Microbiology - Last 24 Hours (Table) 07/27/22 01:48 Blood Culture - Preliminary Blood No Growth after 72 hours Assessment and Plan Assessment: #1 ESRD on hemodialysis, MWF schedule, extra treatment today. #2 acute blood loss anemia status post PRBC. #3 hypotension on midodrine #4 anemia with chronic kidney disease #5 peripheral diabetes Plan: #1 hemodialysis as per outpatient schedule, extra treatment today. #2 ESRD medications
[2022-07-30 16:39] LABS: Glucose,Whole Blood 82 mg/dL (70-110)
--- NOTE | 2022-07-30 16:41 | PN ---
PROGRESS NOTE DATE OF SERVICE: 07/30/2022 LOCATION: 251. CHIEF COMPLAINT: Stage 5 CKD, hypotension, and diabetes. HISTORY OF PRESENT ILLNESS: This lady is doing fairly well. Her blood pressure is a little bit more stable, and her systolic is up over 100. REVIEW OF SYSTEMS: She denies any chest pain, abdominal pain, etc. She is still complaining of back pain. PHYSICAL EXAMINATION: CHEST: Breath sounds are heard bilaterally. CARDIAC: Normal. ABDOMEN: Soft and nontender. IMPRESSION: 1. Hypotension, etiology unknown. 2. History of hypertension. 3. Poorly-controlled type 1 insulin-dependent diabetes mellitus. 4. Stage 5 chronic kidney disease, on dialysis. 5. Amblyopia. 6. Depression. 7. Diabetic retinopathy with blindness. PLAN: No change in medication program at this time. I had ordered an echocardiogram, but this was done several days ago, and report is back which does not reveal any findings that could be acted upon to improve her cardiac output. Chest x-ray will be repeated. MMODL / IJN: [id number] /
[2022-07-30] MEDS: MELATONIN 5 MG TABLET PO SCH (19:45)
[2022-07-30] MEDS: FAMOTIDINE 20 MG TAB PO SCH (19:45)
[2022-07-30] MEDS: MIRTAZAPINE 15 MG TAB PO SCH (19:45)
[2022-07-30] MEDS: ONDANSETRON 4 MG TAB PO PRN (19:46)
[2022-07-30 21:17] LABS: Glucose,Whole Blood 215 mg/dL (70-110)
[2022-07-31] MEDS: HYDROmorphone 1 MG/ML 1 ML SYRINGE IVP PRN ×3 (01:19→15:56)
[2022-07-31 01:26] LABS: Glucose,Whole Blood 373 mg/dL (70-110)
[2022-07-31 06:01] LABS: Glucose,Whole Blood 431 mg/dL (70-110)
[2022-07-31] MEDS: ONDANSETRON 4 MG TAB PO PRN (06:02)
[2022-07-31] MEDS: MIDODRINE 5 MG TAB PO SCH ×4 (06:02→16:49)
[2022-07-31] MEDS: CALCIUM ACETATE 667 MG TAB PO SCH ×4 (06:02→17:25)
[2022-07-31] MEDS: INSULIN DETEMIR (LEVEMIR) 100 UNIT/ML SYR SQ SCH (06:02)
[2022-07-31] MEDS: ONDANSETRON 4 MG/2 ML VIAL IVP PRN ×3 (06:29→19:51)
[2022-07-31 07:19] LABS: Vancomycin,Random 16.9 ug/mL
[2022-07-31] MEDS: TORSEMIDE 20 MG TAB PO SCH ×2 (08:15→22:09)
[2022-07-31] MEDS: CYANOCOBALAMIN 500 MCG TAB PO SCH (08:15)
[2022-07-31] MEDS: ASPIRIN 81 MG PO SCH (08:15)
[2022-07-31] MEDS: DULoxetine HCL 30 MG CAPSULE.DR PO SCH ×2 (08:15→22:23)
[2022-07-31] MEDS: ATORVASTATIN 40 MG TAB PO SCH (08:15)
[2022-07-31] MEDS: INSULIN ASPART (NovoLOG) 100 UNIT/ML VIAL SQ SCH ×3 (08:15→17:24)
[2022-07-31] MEDS: buPROPion SR 150 MG TABLET.ER PO SCH ×2 (08:15→22:09)
[2022-07-31] MEDS ORDERED: VANCOMYCIN 750 MG in SODIUM CHLORIDE 0.9% 250 ML IVPB ONE (11:00)
--- NOTE | 2022-07-31 11:51 | P.PN ---
Subjective Progress Note Date: 07/31/22 The patient is a 51-year-old female patient with a past medical history significant for stage renal disease on dialysis was admitted to the hospital with hypotension and subsequently she was transferred to the intensive care unit. 07/30/2022 The patient was seen this morning. She is not on any vasopressors or inotrope at this point. Her pressure and heart rate has been within normal limits. She is on midodrine. She is asymptomatic and overall hemodynamically stable. From a cardiovascular standpoint of view, the patient can be transferred out of the intensive. She underwent an echo which revealed normal biventricular systolic function with moderate concentric left ventricular hypertrophy. July [id number] The patient was seen and evaluated this morning. She is asymptomatic. Her pressure started trending up now. Currently she is on midodrine 10 mg by mouth 3 times a day. She reports no pain in the chest and no shortness of breath and no dizziness or lightheadedness. The echo revealed normal biventricular systolic function was moderate concentric left ventricular hypertrophy. Assessment End-stage renal disease on dialysis Hypotension which has resolved Plan Continue the current medical regimen Consider decreasing the dose of midodrine if the pressure started trending up Follow-up with the patient Objective - Vital Signs Vital signs: Vital Signs Temp 99.0 F 07/31/22 07:22 Pulse 83 07/31/22 07:22 Resp 18 07/31/22 07:22 BP 197/92 07/31/22 07:22 Pulse Ox 95 07/31/22 07:22 FiO2 Intake & Output 07/30/22 07/31/22 07/31/22 18:59 06:59 18:59 Intake Total 200 Output Total 0 Balance 200 Weight 55 kg Intake: Oral 200 Output: Urine 0 - Labs CBC & Chem 7: 07/30/22 05:12 07/31/22 06:14 Labs: Abnormal Lab Results - Last 24 Hours (Table) 07/30/22 07/31/22 07/31/22 Range/Units 21:16 01:24 05:59 Creatinine (0.52-1.04) mg/dL POC Glucose (mg/dL) 215 H 373 H 431 H (70-110) mg/dL 07/31/22 Range/Units 06:14 Creatinine 3.03 H (0.52-1.04) mg/dL POC Glucose (mg/dL) (70-110) mg/dL Microbiology - Last 24 Hours (Table) 07/27/22 01:48 Blood Culture - Preliminary Blood No Growth after 96 hours
[2022-07-31 11:53] LABS: Glucose,Whole Blood 104 mg/dL (70-110)
[2022-07-31] MEDS: diphenhydrAMINE 50 MG/ML 1 ML VIAL IVP PRN ×2 (13:03→21:39)
[2022-07-31] MEDS: cloNIDine HCL 0.1 MG TAB PO SCH ×4 (13:16→19:24)
--- NOTE | 2022-07-31 14:53 | P.PN ---
Subjective Progress Note Date: 07/31/22 Follow-up for ESRD. Objective - Vital Signs Vital signs: Vital Signs Temp 99.0 F 07/31/22 07:22 Pulse 83 07/31/22 07:22 Resp 18 07/31/22 07:22 BP 197/92 07/31/22 07:22 Pulse Ox 95 07/31/22 07:22 FiO2 Intake & Output 07/30/22 07/31/22 07/31/22 18:59 06:59 18:59 Intake Total 200 Output Total 0 Balance 200 Weight 55 kg Intake: Oral 200 Output: Urine 0 - Exam No acute distress S1-S2 heard Decreased breath sounds No edema - Labs CBC & Chem 7: 07/30/22 05:12 07/31/22 06:14 Labs: Abnormal Lab Results - Last 24 Hours (Table) 07/30/22 07/31/22 07/31/22 Range/Units 21:16 01:24 05:59 Creatinine (0.52-1.04) mg/dL POC Glucose (mg/dL) 215 H 373 H 431 H (70-110) mg/dL 07/31/22 Range/Units 06:14 Creatinine 3.03 H (0.52-1.04) mg/dL POC Glucose (mg/dL) (70-110) mg/dL Microbiology - Last 24 Hours (Table) 07/27/22 01:48 Blood Culture - Preliminary Blood No Growth after 96 hours Assessment and Plan Assessment: #1 ESRD on hemodialysis, MWF schedule, extra treatment yesterday. #2 acute blood loss anemia status post PRBC. #3 hypotension on midodrine #4 anemia with chronic kidney disease #5 diabetes Plan: #1 hemodialysis as per outpatient schedule MWF, extra treatment yesterday. #2 ESRD medications
[2022-07-31 16:48] LABS: Glucose,Whole Blood 82 mg/dL (70-110)
[2022-07-31] MEDS: LORazepam 1 MG TAB PO PRN (17:27)
[2022-07-31 19:46] LABS: Basophils # (A) 0.1 k/uL (0-0.2); Basophils % (A) 1 %; Eosinophils # (A) 0.5 k/uL (0-0.7); Eosinophils % (A) 7 %; HCT 23.7 % (34.0-46.0); HGB 7.9 gm/dL (11.4-16.0); Lymphocytes # (A) 0.7 k/uL (1.0-4.8); Lymphocytes % (A) 11 %; MCH 28.4 pg (25.0-35.0); MCHC 33.5 g/dL (31.0-37.0); MCV 84.6 fL (80.0-100.0); Mean Platelet Volume 9.1; Monocytes # (A) 0.3 k/uL (0-1.0); Monocytes % (A) 4 %; Neutrophils % (A) 76 %; Platelet Count 267 k/uL (150-450); RDW 15.1 % (11.5-15.5); WBC 6.6 k/uL (3.8-10.6)
[2022-07-31 20:04] LABS: African American GFR (CKD) 18 (>60 ml/min/1.73 sqM); Anion Gap 9 mmol/L; Blood Urea Nitrogen 23 mg/dL (7-17); Calcium 8.3 mg/dL (8.4-10.2); Carbon Dioxide 30 mmol/L (22-30); Chloride 95 mmol/L (98-107); Glucose 101 mg/dL (74-99); Non-African American GFR(CKD) 15 (>60 ml/min/1.73 sqM); Potassium 3.9 mmol/L (3.5-5.1); Sodium 134 mmol/L (137-145)
[2022-07-31 20:30] LABS: Glucose,Whole Blood 136 mg/dL (70-110)
[2022-07-31] MEDS: MELATONIN 5 MG TABLET PO SCH (22:03)
[2022-07-31] MEDS: FAMOTIDINE 20 MG TAB PO SCH (22:04)
[2022-07-31] MEDS: MIRTAZAPINE 15 MG TAB PO SCH (22:06)
[2022-08-01 00:01] LABS: Glucose,Whole Blood 180 mg/dL (70-110)
[2022-08-01] MEDS: ONDANSETRON 4 MG/2 ML VIAL IVP PRN (02:18)
[2022-08-01] MEDS: HYDROmorphone 1 MG/ML 1 ML SYRINGE IVP PRN ×3 (02:18→20:31)
[2022-08-01 04:12] LABS: Glucose,Whole Blood 341 mg/dL (70-110)
[2022-08-01] MEDS: INSULIN DETEMIR (LEVEMIR) 100 UNIT/ML SYR SQ SCH (06:05)
[2022-08-01 06:10] LABS: Glucose,Whole Blood 416 mg/dL (70-110)
[2022-08-01 08:32] LABS: Glucose,Whole Blood 366 mg/dL (70-110)
[2022-08-01] MEDS: MIDODRINE 5 MG TAB PO SCH (08:32)
[2022-08-01] MEDS: CALCIUM ACETATE 667 MG TAB PO SCH ×3 (08:34→16:55)
[2022-08-01] MEDS: INSULIN ASPART (NovoLOG) 100 UNIT/ML VIAL SQ SCH ×3 (08:39→16:52)
[2022-08-01] MEDS: cloNIDine HCL 0.1 MG TAB PO SCH (08:39)
[2022-08-01] MEDS: diphenhydrAMINE 50 MG/ML 1 ML VIAL IVP PRN ×2 (08:43→20:32)
[2022-08-01] MEDS ORDERED: carvediloL 12.5 MG TAB PO SCH ×2 (08:45)
--- NOTE | 2022-08-01 09:44 | P.PN ---
Subjective Progress Note Date: 08/01/22 The patient is a 51-year-old female patient with a past medical history significant for stage renal disease on dialysis was admitted to the hospital with hypotension and subsequently she was transferred to the intensive care unit. 07/30/2022 The patient was seen this morning. She is not on any vasopressors or inotrope at this point. Her pressure and heart rate has been within normal limits. She is on midodrine. She is asymptomatic and overall hemodynamically stable. From a cardiovascular standpoint of view, the patient can be transferred out of the intensive. She underwent an echo which revealed normal biventricular systolic function with moderate concentric left ventricular hypertrophy. July [id number] The patient was seen and evaluated this morning. She is asymptomatic. Her pressure started trending up now. Currently she is on midodrine 10 mg by mouth 3 times a day. She reports no pain in the chest and no shortness of breath and no dizziness or lightheadedness. The echo revealed normal biventricular systolic function was moderate concentric left ventricular hypertrophy. 08/01 The patient is seen today on the [facility] floor in follow-up. Blood pressure readings have been exceptionally high and she is undergoing hemodialysis right now. Blood pressure 237/104. 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 Physical Exam Vital signs reviewed Lungs clear to auscultation bilaterally Heart regular rhythm, systolic murmur Extremities no lower extremity edema Assessment End-stage renal disease on dialysis Hypotension which has resolved Hypertension Plan Continue the current medical regimen Consider decreasing the dose of midodrine if the pressure started trending up Patient started on Coreg 12.5 mg twice daily Follow-up with the patient Nurse practitioner note has been reviewed, I agree with the documented findings and plan of care. Patient was seen and examined. Objective - Vital Signs Vital signs: Vital Signs Temp 98.8 F 08/01/22 07:19 Pulse 82 08/01/22 07:19 Resp 18 08/01/22 07:19 BP 237/104 08/01/22 07:19 Pulse Ox 97 08/01/22 07:19 FiO2 Intake & Output 07/31/22 08/01/22 08/01/22 18:59 06:59 18:59 Intake Total 236 Balance 236 Weight 49.5 kg Intake: Oral 236 Other: # Voids 1 - Labs CBC & Chem 7: 07/31/22 19:19 08/01/22 05:03 Labs: Abnormal Lab Results - Last 24 Hours (Table) 07/31/22 07/31/22 07/31/22 Range/Units 19:19 19:19 20:28 RBC 2.80 L (3.80-5.40) m/uL Hgb 7.9 L (11.4-16.0) gm/dL Hct 23.7 L (34.0-46.0) % Lymphocytes # 0.7 L (1.0-4.8) k/uL Sodium 134 L (137-145) mmol/L Chloride 95 L (98-107) mmol/L BUN 23 H (7-17) mg/dL Creatinine 3.68 H (0.52-1.04) mg/dL Glucose 101 H (74-99) mg/dL POC Glucose (mg/dL) 136 H (70-110) mg/dL Calcium 8.3 L (8.4-10.2) mg/dL 08/01/22 08/01/22 08/01/22 Range/Units 00:00 01:15 04:09 RBC (3.80-5.40) m/uL Hgb (11.4-16.0) gm/dL Hct (34.0-46.0) % Lymphocytes # (1.0-4.8) k/uL Sodium (137-145) mmol/L Chloride (98-107) mmol/L BUN (7-17) mg/dL Creatinine (0.52-1.04) mg/dL Glucose 204 H (74-99) mg/dL POC Glucose (mg/dL) 180 H 341 H (70-110) mg/dL Calcium (8.4-10.2) mg/dL 08/01/22 08/01/22 Range/Units 06:07 08:30 RBC (3.80-5.40) m/uL Hgb (11.4-16.0) gm/dL Hct (34.0-46.0) % Lymphocytes # (1.0-4.8) k/uL Sodium (137-145) mmol/L Chloride (98-107) mmol/L BUN (7-17) mg/dL Creatinine (0.52-1.04) mg/dL Glucose (74-99) mg/dL POC Glucose (mg/dL) 416 H 366 H (70-110) mg/dL Calcium (8.4-10.2) mg/dL Microbiology - Last 24 Hours (Table) 07/27/22 01:48 Blood Culture - Preliminary Blood No Growth after 120 hours
[2022-08-01] MEDS ORDERED: carvediloL 12.5 MG TAB PO STA (10:55)
[2022-08-01] MEDS: hydrALAZINE HCL 20 MG/ML 1 ML VIAL IVP PRN ×2 (11:04→16:56)
[2022-08-01 11:23] LABS: Glucose,Whole Blood 49 mg/dL (70-110)
--- NOTE | 2022-08-01 11:39 | P.PN ---
Subjective Patient is seen in follow-up for end-stage renal disease. Blood pressure high today. Tolerating dialysis well. No chest pain or shortness of breath. Vital signs are stable. Blood pressure high. General: No acute distress. HEENT: Head exam is unremarkable. LUNGS: No audible rhonchi or wheezes. HEART: Rate and Rhythm are regular. ABDOMEN: No distention. EXTREMITITES: No edema. Objective - Vital Signs Vital signs: Vital Signs Temp 98.8 F 08/01/22 07:19 Pulse 82 08/01/22 07:19 Resp 18 08/01/22 07:19 BP 237/104 08/01/22 07:19 Pulse Ox 97 08/01/22 08:57 FiO2 Intake & Output 07/31/22 08/01/22 08/01/22 18:59 06:59 18:59 Intake Total 236 Balance 236 Weight 49.5 kg 49.5 kg Intake: Oral 236 Other: # Voids 1 - Labs CBC & Chem 7: 07/31/22 19:19 08/01/22 05:03 Labs: Abnormal Lab Results - Last 24 Hours (Table) 07/31/22 07/31/22 07/31/22 Range/Units 19:19 19:19 20:28 RBC 2.80 L (3.80-5.40) m/uL Hgb 7.9 L (11.4-16.0) gm/dL Hct 23.7 L (34.0-46.0) % Lymphocytes # 0.7 L (1.0-4.8) k/uL Sodium 134 L (137-145) mmol/L Chloride 95 L (98-107) mmol/L BUN 23 H (7-17) mg/dL Creatinine 3.68 H (0.52-1.04) mg/dL Glucose 101 H (74-99) mg/dL POC Glucose (mg/dL) 136 H (70-110) mg/dL Calcium 8.3 L (8.4-10.2) mg/dL 08/01/22 08/01/22 08/01/22 Range/Units 00:00 01:15 04:09 RBC (3.80-5.40) m/uL Hgb (11.4-16.0) gm/dL Hct (34.0-46.0) % Lymphocytes # (1.0-4.8) k/uL Sodium (137-145) mmol/L Chloride (98-107) mmol/L BUN (7-17) mg/dL Creatinine (0.52-1.04) mg/dL Glucose 204 H (74-99) mg/dL POC Glucose (mg/dL) 180 H 341 H (70-110) mg/dL Calcium (8.4-10.2) mg/dL 08/01/22 08/01/22 08/01/22 Range/Units 05:03 06:07 08:30 RBC (3.80-5.40) m/uL Hgb (11.4-16.0) gm/dL Hct (34.0-46.0) % Lymphocytes # (1.0-4.8) k/uL Sodium (137-145) mmol/L Chloride (98-107) mmol/L BUN (7-17) mg/dL Creatinine 4.29 H (0.52-1.04) mg/dL Glucose (74-99) mg/dL POC Glucose (mg/dL) 416 H 366 H (70-110) mg/dL Calcium (8.4-10.2) mg/dL 08/01/22 Range/Units 11:19 RBC (3.80-5.40) m/uL Hgb (11.4-16.0) gm/dL Hct (34.0-46.0) % Lymphocytes # (1.0-4.8) k/uL Sodium (137-145) mmol/L Chloride (98-107) mmol/L BUN (7-17) mg/dL Creatinine (0.52-1.04) mg/dL Glucose (74-99) mg/dL POC Glucose (mg/dL) 49 L (70-110) mg/dL Calcium (8.4-10.2) mg/dL Microbiology - Last 24 Hours (Table) 07/27/22 01:48 Blood Culture - Preliminary Blood No Growth after 120 hours Assessment and Plan Plan: Assessment: 1. End-stage renal disease maintained on hemodialysis on Monday schedule. 2. Acute blood loss anemia status post blood transfusion. No active bleeding. Status post IV DDAVP. On Aranesp. 3. 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 4. Hypertension with chronic kidney disease. 5. Brittle diabetes. Plan: Currently seen while undergoing hemodialysis. Stop midodrine. Coreg resumed. Increase dose of clonidine.
[2022-08-01] MEDS ORDERED: ONDANSETRON 4 MG/2 ML VIAL IVP PRN (11:42)
[2022-08-01 12:04] LABS: Glucose,Whole Blood 48 mg/dL (70-110)
[2022-08-01] MEDS: DEXTROSE 50% SYRINGE 50 ML IVP PRN ×2 (12:07→14:49)
[2022-08-01] MEDS: buPROPion SR 150 MG TABLET.ER PO SCH ×2 (12:26→20:32)
[2022-08-01] MEDS: ATORVASTATIN 40 MG TAB PO SCH (12:26)
[2022-08-01] MEDS: ASPIRIN 81 MG PO SCH (12:26)
[2022-08-01] MEDS: DULoxetine HCL 30 MG CAPSULE.DR PO SCH ×2 (12:26→20:33)
[2022-08-01] MEDS: TORSEMIDE 20 MG TAB PO SCH ×2 (12:26→20:33)
[2022-08-01] MEDS: CYANOCOBALAMIN 500 MCG TAB PO SCH (12:26)
--- NOTE | 2022-08-01 12:43 | P.PN ---
Subjective Progress Note Date: 08/01/22 On today's evaluation of 08/01/2022, the patient is being seen for a follow-up. She is stable, calm and comfortable,. She is a very brittle diabetic and the patient has end-stage renal disease and the patient is currently on hemodialysis. The patient underwent hemodialysis today and the patient tolerat ed the procedure well. No chest pain. No shortness of breath. No hypotension. Blood pressure was quite elevated and nephrology is on the case. She is currently on oxygen at 4 L per minute nasal cannula. WBC count is at 6.6 with a hemoglobin of 7.9 and a platelet count of 267. Creatinine is at 4.29. Continues to have a very labile blood sugar. Sugars dropped down to 48 and the patient is currently treated and the patient has her lunch sitting at the bedside. Earlier this morning, her blood sugar was high as 416 and I see that her current insulin coverage is with Levemir 12 units along with 6 units of NovoLog with meals and a sliding scale coverage. 25 mg by mouth twice a day, and clonidine of no twice a day. The patient had a chest x-ray on 07/30/2021 that showed cardiomegaly and small right-sided pleural effusion. Objective - Vital Signs Vital signs: Vital Signs Temp 98.8 F 08/01/22 07:19 Pulse 82 08/01/22 07:19 Resp 18 08/01/22 07:19 BP 237/104 08/01/22 07:19 Pulse Ox 97 08/01/22 08:57 FiO2 Intake & Output 07/31/22 08/01/22 08/01/22 18:59 06:59 18:59 Intake Total 236 Balance 236 Weight 49.5 kg 49.5 kg Intake: Oral 236 Other: # Voids 1 - Exam GENERAL EXAM: Alert, cachectic 31-year-old female, on 4 L nasal cannula, comfortable in no apparent distress. HEAD: Normocephalic and atraumatic EYES: Normal reaction of pupils, equal size. NOSE: Clear with pink turbinates. THROAT: No erythema or exudates. NECK: No masses, no JVD. CHEST: No chest wall deformity. LUNGS: Equal air entry with no crackles, wheeze, rhonchi or dullness. CVS: S1 and S2 normal with no audible murmur, regular rhythm. No extra heart sounds ABDOMEN: No hepatosplenomegaly, active bowel sounds, no guarding or rigidity. SPINE: No scoliosis or deformity SKIN: No rashes CENTRAL NERVOUS SYSTEM: No focal deficits, tone is normal in all 4 extremities. EXTREMITIES: There is no peripheral edema, clubbing, or cyanosis. Left arm fistula with positive thrill and bruit. Peripheral pulses are intact. - Labs CBC & Chem 7: 07/31/22 19:19 08/01/22 05:03 Labs: Abnormal Lab Results - Last 24 Hours (Table) 07/31/22 07/31/22 07/31/22 Range/Units 19:19 19:19 20:28 RBC 2.80 L (3.80-5.40) m/uL Hgb 7.9 L (11.4-16.0) gm/dL Hct 23.7 L (34.0-46.0) % Lymphocytes # 0.7 L (1.0-4.8) k/uL Sodium 134 L (137-145) mmol/L Chloride 95 L (98-107) mmol/L BUN 23 H (7-17) mg/dL Creatinine 3.68 H (0.52-1.04) mg/dL Glucose 101 H (74-99) mg/dL POC Glucose (mg/dL) 136 H (70-110) mg/dL Calcium 8.3 L (8.4-10.2) mg/dL 08/01/22 08/01/22 08/01/22 Range/Units 00:00 01:15 04:09 RBC (3.80-5.40) m/uL Hgb (11.4-16.0) gm/dL Hct (34.0-46.0) % Lymphocytes # (1.0-4.8) k/uL Sodium (137-145) mmol/L Chloride (98-107) mmol/L BUN (7-17) mg/dL Creatinine (0.52-1.04) mg/dL Glucose 204 H (74-99) mg/dL POC Glucose (mg/dL) 180 H 341 H (70-110) mg/dL Calcium (8.4-10.2) mg/dL 08/01/22 08/01/22 08/01/22 Range/Units 05:03 06:07 08:30 RBC (3.80-5.40) m/uL Hgb (11.4-16.0) gm/dL Hct (34.0-46.0) % Lymphocytes # (1.0-4.8) k/uL Sodium (137-145) mmol/L Chloride (98-107) mmol/L BUN (7-17) mg/dL Creatinine 4.29 H (0.52-1.04) mg/dL Glucose (74-99) mg/dL POC Glucose (mg/dL) 416 H 366 H (70-110) mg/dL Calcium (8.4-10.2) mg/dL 08/01/22 08/01/22 Range/Units 11:19 12:03 RBC (3.80-5.40) m/uL Hgb (11.4-16.0) gm/dL Hct (34.0-46.0) % Lymphocytes # (1.0-4.8) k/uL Sodium (137-145) mmol/L Chloride (98-107) mmol/L BUN (7-17) mg/dL Creatinine (0.52-1.04) mg/dL Glucose (74-99) mg/dL POC Glucose (mg/dL) 49 L 48 L (70-110) mg/dL Calcium (8.4-10.2) mg/dL Microbiology - Last 24 Hours (Table) 07/27/22 01:48 Blood Culture - Preliminary Blood No Growth after 120 hours Assessment and Plan Plan: Hypotension and sinus bradycardia, could potentially be related to patient acc identally taking too many of her cardiac meds. Patient was treated with 1 dose of atropine and transient dopamine infusion on admission, which was ultimately discontinued. Hypovolemic shock with a hemoglobin on admission of 6.6 g/dL. Patient was transfused 1 unit PRBCs. Hemoglobin is stable currently at 8.0 End-stage renal disease normally receives hemodialysis Monday, Monday, Monday. Chronic anemia Diabetes mellitus type 1 with extremely brittle blood sugar control. Previous history of cardiac arrest related to hyperkalemia on 07/11/2022 and a previous event in January 2022. History of CVA without residual Diabetic retinopathy and the patient is legally blind Diabetic neuropathy Restless leg syndrome Depression, denies any current suicidal ideation Plan Completed hemodialysis. 4.5 liters Stop midodrine. Coreg resumed in addition to clonidine and she was also given hydralazine Dextrose given Will need to eat regularly and the dose of Levemir may need to be modified
[2022-08-01 13:37] LABS: Glucose,Whole Blood 55 mg/dL (70-110)
[2022-08-01] MEDS ORDERED: cloNIDine HCL 0.2 MG TAB PO STA (14:08)
[2022-08-01 14:54] LABS: Glucose,Whole Blood 30 mg/dL (70-110)
[2022-08-01] MEDS ORDERED: DEXTROSE 10 % IN WATER 250 ML IV ONE (15:10)
[2022-08-01] MEDS ORDERED: DEXTROSE 10% IN WATER 250 ML IV ONE (15:15)
[2022-08-01 15:31] LABS: Glucose,Whole Blood 98 mg/dL (70-110)
[2022-08-01 16:43] LABS: Glucose,Whole Blood 40 mg/dL (70-110)
[2022-08-01] MEDS: cloNIDine HCL 0.2 MG TAB PO SCH ×2 (16:55→22:18)
[2022-08-01] MEDS: carvediloL 12.5 MG TAB PO SCH (16:55)
[2022-08-01] MEDS: DEXTROSE 10% IN WATER 500 ML in EMPTY BAG 1 BAG IV SCH (16:56)
[2022-08-01 18:03] LABS: Glucose,Whole Blood 142 mg/dL (70-110)
[2022-08-01 19:50] LABS: Glucose,Whole Blood 83 mg/dL (70-110)
[2022-08-01] MEDS: MIRTAZAPINE 15 MG TAB PO SCH (20:32)
[2022-08-01] MEDS: MELATONIN 5 MG TABLET PO SCH (20:32)
[2022-08-01] MEDS: FAMOTIDINE 20 MG TAB PO SCH (20:32)
[2022-08-01] MEDS ORDERED: NIFEdipine 10 MG CAP PO SCH (21:00)
[2022-08-01 22:39] LABS: Glucose,Whole Blood 125 mg/dL (70-110)
[2022-08-02 01:16] LABS: Glucose,Whole Blood 128 mg/dL (70-110)
[2022-08-02 02:00] LABS: Glucose,Whole Blood 134 mg/dL (70-110)
[2022-08-02] MEDS: HYDROmorphone 1 MG/ML 1 ML SYRINGE IVP PRN ×2 (02:06→11:25)
[2022-08-02] MEDS: diphenhydrAMINE 50 MG/ML 1 ML VIAL IVP PRN ×2 (02:06→11:25)
[2022-08-02] MEDS: DEXTROSE 10% IN WATER 500 ML in EMPTY BAG 1 BAG IV SCH ×4 (03:25→23:49)
[2022-08-02 04:23] LABS: Glucose,Whole Blood 214 mg/dL (70-110)
[2022-08-02] MEDS: LORazepam 1 MG TAB PO PRN (05:29)
[2022-08-02 06:40] LABS: Glucose,Whole Blood 274 mg/dL (70-110)
[2022-08-02] MEDS: CALCIUM ACETATE 667 MG TAB PO SCH ×3 (06:43→18:37)
[2022-08-02] MEDS: INSULIN ASPART (NovoLOG) 100 UNIT/ML VIAL SQ SCH ×3 (06:43→18:38)
[2022-08-02] MEDS: carvediloL 12.5 MG TAB PO SCH ×2 (06:43→20:02)
[2022-08-02] MEDS: cloNIDine HCL 0.2 MG TAB PO SCH ×3 (08:22→21:09)
--- NOTE | 2022-08-02 08:23 | PN ---
PROGRESS NOTE DATE OF SERVICE: 07/31/2022 CHIEF COMPLAINT: Hypotension. HISTORY OF PRESENT ILLNESS: This lady's blood pressure is responding. She is having some nausea, however. REVIEW OF SYSTEMS: She denies headaches, abdominal pain, shortness of breath. PHYSICAL EXAMINATION: Unchanged. GENERAL: She remains pale and weak. HEAD, EARS, EYES, AND NOSE: Normal. CHEST: Clear. CARDIAC: Demonstrates sinus rhythm. ABDOMEN: Soft, nontender. IMPRESSION: 1. Hypotension. 2. Uncontrolled insulin-dependent type 1 diabetes mellitus. 3. Stage 5 chronic kidney disease. 4. Nausea and vomiting, etiology unknown. PLAN: Increase her Benadryl dose at her request. MMODL / IJN: [id number] /
[2022-08-02] MEDS: TORSEMIDE 20 MG TAB PO SCH ×2 (08:38→21:09)
[2022-08-02] MEDS: CYANOCOBALAMIN 500 MCG TAB PO SCH (08:38)
[2022-08-02] MEDS: buPROPion SR 150 MG TABLET.ER PO SCH (08:38)
[2022-08-02] MEDS: ATORVASTATIN 40 MG TAB PO SCH (08:38)
[2022-08-02 08:39] LABS: ALT 401 U/L (4-34); AST 228 U/L (14-36); African American GFR (CKD) 22 (>60 ml/min/1.73 sqM); Albumin 3.8 g/dL (3.5-5.0); Albumin/Globulin Ratio 1.5; Alkaline Phosphatase 524 U/L (38-126); Anion Gap 13 mmol/L; Blood Urea Nitrogen 13 mg/dL (7-17); Calcium 8.8 mg/dL (8.4-10.2); Carbon Dioxide 28 mmol/L (22-30); Chloride 93 mmol/L (98-107); Globulin 2.6 g/dL; Glucose 275 mg/dL (74-99); Magnesium 1.8 mg/dL (1.6-2.3); Non-African American GFR(CKD) 19 (>60 ml/min/1.73 sqM); Potassium 4.2 mmol/L (3.5-5.1); Sodium 134 mmol/L (137-145); Total Bilirubin 0.9 mg/dL (0.2-1.3); Total Protein 6.4 g/dL (6.3-8.2)
[2022-08-02] MEDS: DULoxetine HCL 30 MG CAPSULE.DR PO SCH (08:39)
[2022-08-02] MEDS: INSULIN DETEMIR (LEVEMIR) 100 UNIT/ML SYR SQ SCH (08:39)
[2022-08-02] MEDS: ASPIRIN 81 MG PO SCH (08:39)
--- NOTE | 2022-08-02 08:47 | PN ---
PROGRESS NOTE DATE OF SERVICE: 08/01/2022 CHIEF COMPLAINT: Uncontrolled diabetes and hypertension. HISTORY OF PRESENT ILLNESS: This lady's blood pressure is now shot back up and over 200 range. Her blood sugars have been quite low all day. REVIEW OF SYSTEMS: She has no complaints except for the itching that she gets occasionally. PHYSICAL EXAMINATION: Unchanged. GENERAL: She is pale. SKIN: Dry. CHEST: Clear. CARDIAC: Demonstrates a sinus rhythm. ABDOMEN: Soft. IMPRESSION: 1. Hypertension. 2. Stage 5 chronic kidney disease. 3. Poorly-controlled type 1 diabetes mellitus. 4. Depression. 5. Amblyopia. PLAN: 1. Drop her insulin down slightly and temporarily administer D5 and water. 2. Start to raise her medication program for her hypertension. MMODL / IJN: [id number] /
[2022-08-02 09:33] LABS: Glucose,Whole Blood 66 mg/dL (70-110)
--- NOTE | 2022-08-02 09:47 | P.PN ---
Subjective Patient is seen in follow-up for end-stage renal disease. Blood pressure well controlled today. Currently having breakfast. No chest pain or shortness of breath. Tearful today. Vital signs are stable. Blood pressure high. General: No acute distress. HEENT: Head exam is unremarkable. LUNGS: No audible rhonchi or wheezes. HEART: Rate and Rhythm are regular. ABDOMEN: No distention. EXTREMITITES: No edema. Objective - Vital Signs Vital signs: Vital Signs Temp 97.4 F L 08/02/22 07:14 Pulse 75 08/02/22 07:14 Resp 16 08/02/22 07:14 BP 113/59 08/02/22 07:14 Pulse Ox 98 08/02/22 09:34 FiO2 Intake & Output 08/01/22 08/02/22 08/02/22 18:59 06:59 18:59 Intake Total 300 Output Total 4500 Balance -4200 Weight 49.5 kg Intake: Hemodialysis 300 Output: Hemodialysis 4500 Other: # Voids 1 2 - Labs CBC & Chem 7: 07/31/22 19:19 08/02/22 07:05 Labs: Abnormal Lab Results - Last 24 Hours (Table) 08/01/22 08/01/22 08/01/22 Range/Units 11:19 12:03 13:35 Sodium (137-145) mmol/L Chloride (98-107) mmol/L Creatinine (0.52-1.04) mg/dL Glucose (74-99) mg/dL POC Glucose (mg/dL) 49 L 48 L 55 L (70-110) mg/dL AST (14-36) U/L ALT (4-34) U/L Alkaline Phosphatase (38-126) U/L 08/01/22 08/01/22 08/01/22 Range/Units 14:44 16:41 18:02 Sodium (137-145) mmol/L Chloride (98-107) mmol/L Creatinine (0.52-1.04) mg/dL Glucose (74-99) mg/dL POC Glucose (mg/dL) 30 L 40 L 142 H (70-110) mg/dL AST (14-36) U/L ALT (4-34) U/L Alkaline Phosphatase (38-126) U/L 08/01/22 08/02/22 08/02/22 Range/Units 22:37 01:14 01:58 Sodium (137-145) mmol/L Chloride (98-107) mmol/L Creatinine (0.52-1.04) mg/dL Glucose (74-99) mg/dL POC Glucose (mg/dL) 125 H 128 H 134 H (70-110) mg/dL AST (14-36) U/L ALT (4-34) U/L Alkaline Phosphatase (38-126) U/L 08/02/22 08/02/22 08/02/22 Range/Units 04:21 06:37 07:05 Sodium 134 L (137-145) mmol/L Chloride 93 L (98-107) mmol/L Creatinine 3.07 H (0.52-1.04) mg/dL Glucose 275 H (74-99) mg/dL POC Glucose (mg/dL) 214 H 274 H (70-110) mg/dL AST 228 H (14-36) U/L ALT 401 H (4-34) U/L Alkaline Phosphatase 524 H (38-126) U/L 08/02/22 Range/Units 09:31 Sodium (137-145) mmol/L Chloride (98-107) mmol/L Creatinine (0.52-1.04) mg/dL Glucose (74-99) mg/dL POC Glucose (mg/dL) 66 L (70-110) mg/dL AST (14-36) U/L ALT (4-34) U/L Alkaline Phosphatase (38-126) U/L Microbiology - Last 24 Hours (Table) 07/27/22 01:48 Blood Culture - Final Blood No Growth after 144 hours Assessment and Plan Plan: Assessment: 1. End-stage renal disease maintained on hemodialysis on Monday schedule. 2. Acute blood loss anemia status post blood transfusion. No active bleeding. Status post IV DDAVP. On Aranesp. 3. 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 4. Hypertension with chronic kidney disease. Controlled. 5. Brittle diabetes. Plan: Hemodialysis tomorrow. Maintain current antihypertensives with parameters.
[2022-08-02 09:54] LABS: Vancomycin,Random 15.9 ug/mL
[2022-08-02] MEDS: DEXTROSE 50% SYRINGE 50 ML IVP PRN ×4 (10:09→17:43)
[2022-08-02 10:10] LABS: Glucose,Whole Blood 45 mg/dL (70-110)
[2022-08-02 10:29] LABS: Glucose,Whole Blood 134 mg/dL (70-110)
--- NOTE | 2022-08-02 10:38 | P.PN ---
Subjective Progress Note Date: 08/02/22 The patient is a 51-year-old female patient with a past medical history significant for stage renal disease on dialysis was admitted to the hospital with hypotension and subsequently she was transferred to the intensive care unit. 07/30/2022 The patient was seen this morning. She is not on any vasopressors or inotrope at this point. Her pressure and heart rate has been within normal limits. She is on midodrine. She is asymptomatic and overall hemodynamically stable. From a cardiovascular standpoint of view, the patient can be transferred out of the intensive. She underwent an echo which revealed normal biventricular systolic function with moderate concentric left ventricular hypertrophy. July 312022 The patient was seen and evaluated this morning. She is asymptomatic. Her pressure started trending up now. Currently she is on midodrine 10 mg by mouth 3 times a day. She reports no pain in the chest and no shortness of breath and no dizziness or lightheadedness. The echo revealed normal biventricular systolic function was moderate concentric left ventricular hypertrophy. 08/01 The patient is seen today on the [facility] floor in follow-up. Blood pressure readings have been exceptionally high and she is undergoing hemodialysis right now. Blood pressure 237/104. 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 08/02 Patient's blood pressure was significantly high yesterday and Coreg was again increased to 25 mg and nephrology adjusted clonidine, added Procardia and midodrine was discontinued. This morning blood pressure readings are much improved. Blood pressure 113/59, heart rate in the 70s. Patient has a pulse ox 92% on 4 L. Repeat blood work reveals sodium 134, potassium 4.2, creatinine 3.07, BUN 13. Noted blood sugar this morning was 45. Liver function tests are elevated but appear to be improving. Physical Exam Vital signs reviewed Lungs clear to auscultation bilaterally Heart regular rhythm, systolic murmur Extremities no lower extremity edema Assessment End-stage renal disease on dialysis Hypotension which has resolved Hypertension Plan Continue the current medical regimen Consider decreasing the dose of midodrine if the pressure started trending up Continue patient on Coreg 25 mg twice daily Cardiology we'll sign off and follow on an as-needed basis. Please reconsult for any new concerns. Nurse practitioner note has been reviewed, I agree with the documented findings and plan of care. Patient was seen and examined. Objective - Vital Signs Vital signs: Vital Signs Temp 97.4 F L 08/02/22 07:14 Pulse 75 08/02/22 07:14 Resp 16 08/02/22 07:14 BP 113/59 08/02/22 07:14 Pulse Ox 98 08/02/22 09:34 FiO2 Intake & Output 08/01/22 08/02/22 08/02/22 18:59 06:59 18:59 Intake Total 300 Output Total 4500 Balance -4200 Weight 49.5 kg Intake: Hemodialysis 300 Output: Hemodialysis 4500 Other: # Voids 1 2 - Labs CBC & Chem 7: 07/31/22 19:19 08/02/22 07:05 Labs: Abnormal Lab Results - Last 24 Hours (Table) 08/01/22 08/01/22 08/01/22 Range/Units 11:19 12:03 13:35 Sodium (137-145) mmol/L Chloride (98-107) mmol/L Creatinine (0.52-1.04) mg/dL Glucose (74-99) mg/dL POC Glucose (mg/dL) 49 L 48 L 55 L (70-110) mg/dL AST (14-36) U/L ALT (4-34) U/L Alkaline Phosphatase (38-126) U/L 08/01/22 08/01/22 08/01/22 Range/Units 14:44 16:41 18:02 Sodium (137-145) mmol/L Chloride (98-107) mmol/L Creatinine (0.52-1.04) mg/dL Glucose (74-99) mg/dL POC Glucose (mg/dL) 30 L 40 L 142 H (70-110) mg/dL AST (14-36) U/L ALT (4-34) U/L Alkaline Phosphatase (38-126) U/L 08/01/22 08/02/22 08/02/22 Range/Units 22:37 01:14 01:58 Sodium (137-145) mmol/L Chloride (98-107) mmol/L Creatinine (0.52-1.04) mg/dL Glucose (74-99) mg/dL POC Glucose (mg/dL) 125 H 128 H 134 H (70-110) mg/dL AST (14-36) U/L ALT (4-34) U/L Alkaline Phosphatase (38-126) U/L 08/02/22 08/02/22 08/02/22 Range/Units 04:21 06:37 07:05 Sodium 134 L (137-145) mmol/L Chloride 93 L (98-107) mmol/L Creatinine 3.07 H (0.52-1.04) mg/dL Glucose 275 H (74-99) mg/dL POC Glucose (mg/dL) 214 H 274 H (70-110) mg/dL AST 228 H (14-36) U/L ALT 401 H (4-34) U/L Alkaline Phosphatase 524 H (38-126) U/L 08/02/22 08/02/22 Range/Units 09:31 10:01 Sodium (137-145) mmol/L Chloride (98-107) mmol/L Creatinine (0.52-1.04) mg/dL Glucose (74-99) mg/dL POC Glucose (mg/dL) 66 L 45 L (70-110) mg/dL AST (14-36) U/L ALT (4-34) U/L Alkaline Phosphatase (38-126) U/L Microbiology - Last 24 Hours (Table) 07/27/22 01:48 Blood Culture - Final Blood No Growth after 144 hours
[2022-08-02 10:42] LABS: HCT 23.9 % (37.2-46.3); HGB 7.6 g/dL (12.0-15.0); MCH 27.8 pg (27.0-32.0); MCHC 31.8 g/dL (32.0-37.0); MCV 87.5 fL (80.0-97.0); Mean Platelet Volume 10.9 fL (9.5-12.2); NRBC Per 100 WBC 0.3 /100 WBCS (0.0-0.0); Platelet Count 339 X 10*3/uL (140-440); RBC 2.73 X 10*6/uL (4.10-5.20); RDW 14.3 % (11.5-14.5); WBC 7.13 X 10*3/uL (4.50-10.00)
[2022-08-02 11:35] LABS: Glucose,Whole Blood 33 mg/dL (70-110)
--- NOTE | 2022-08-02 11:48 | P.PN ---
Subjective Progress Note Date: 08/02/22 On today's evaluation of 08/01/2022, the patient is being seen for a follow-up. She is stable, calm and comfortable,. She is a very brittle diabetic and the patient has end-stage renal disease and the patient is currently on hemodialysis. The patient underwent hemodialysis today and the patient tolerat ed the procedure well. No chest pain. No shortness of breath. No hypotension. Blood pressure was quite elevated and nephrology is on the case. She is currently on oxygen at 4 L per minute nasal cannula. WBC count is at 6.6 with a hemoglobin of 7.9 and a platelet count of 267. Creatinine is at 4.29. Continues to have a very labile blood sugar. Sugars dropped down to 48 and the patient is currently treated and the patient has her lunch sitting at the bedside. Earlier this morning, her blood sugar was high as 416 and I see that her current insulin coverage is with Levemir 12 units along with 6 units of NovoLog with meals and a sliding scale coverage. 25 mg by mouth twice a day, and clonidine of no twice a day. The patient had a chest x-ray on 07/30/2021 that showed cardiomegaly and small right-sided pleural effusion. On today's evaluation of 08/02/2022, the patient is having another episode of hypoglycemia. The patient was given D50. The patient was placed on D5 water at the rate of 50 mL an hour. She is becoming uncooperative with the medical treatment. I told her the Levemir dose of being provided to this patient's was at a higher dose and the dose has been further lowered down to 8 units. The patient is not consistent with her oral intake. The patient has a very brittle labile blood sugar control. She still having massive lacerations. Her respiratory status is stable for now. She is receiving 6 units of NovoLog with meals plus a sliding scale coverage. She remains on same medication for now. Blood sugars being monitored on the medical floor. Objective - Vital Signs Vital signs: Vital Signs Temp 97.4 F L 08/02/22 07:14 Pulse 75 08/02/22 07:14 Resp 16 08/02/22 07:14 BP 113/59 08/02/22 07:14 Pulse Ox 98 08/02/22 09:34 FiO2 Intake & Output 08/01/22 08/02/2223 18:59 06:59 18:59 Intake Total 300 Output Total 4500 Balance -4200 Weight 49.5 kg Intake: Hemodialysis 300 Output: Hemodialysis 4500 Other: # Voids 1 2 - Exam GENERAL EXAM: Alert, cachectic 31-year-old female, on 4 L nasal cannula, comfortable in no apparent distress. HEAD: Normocephalic and atraumatic EYES: Normal reaction of pupils, equal size. NOSE: Clear with pink turbinates. THROAT: No erythema or exudates. NECK: No masses, no JVD. CHEST: No chest wall deformity. LUNGS: Equal air entry with no crackles, wheeze, rhonchi or dullness. CVS: S1 and S2 normal with no audible murmur, regular rhythm. No extra heart sounds ABDOMEN: No hepatosplenomegaly, active bowel sounds, no guarding or rigidity. SPINE: No scoliosis or deformity SKIN: No rashes CENTRAL NERVOUS SYSTEM: No focal deficits, tone is normal in all 4 extremities. EXTREMITIES: There is no peripheral edema, clubbing, or cyanosis. Left arm fistula with positive thrill and bruit. Peripheral pulses are intact. - Labs CBC & Chem 7: 08/02/22 07:05 08/02/22 07:05 Labs: Abnormal Lab Results - Last 24 Hours (Table) 08/01/22 08/01/22 08/01/22 Range/Units 11:19 12:03 13:35 Sodium (137-145) mmol/L Chloride (98-107) mmol/L Creatinine (0.52-1.04) mg/dL Glucose (74-99) mg/dL POC Glucose (mg/dL) 49 L 48 L 55 L (70-110) mg/dL AST (14-36) U/L ALT (4-34) U/L Alkaline Phosphatase (38-126) U/L 08/01/22 08/01/22 08/01/22 Range/Units 14:44 16:41 18:02 Sodium (137-145) mmol/L Chloride (98-107) mmol/L Creatinine (0.52-1.04) mg/dL Glucose (74-99) mg/dL POC Glucose (mg/dL) 30 L 40 L 142 H (70-110) mg/dL AST (14-36) U/L ALT (4-34) U/L Alkaline Phosphatase (38-126) U/L 08/01/22 08/02/22 08/02/22 Range/Units 22:37 01:14 01:58 Sodium (137-145) mmol/L Chloride (98-107) mmol/L Creatinine (0.52-1.04) mg/dL Glucose (74-99) mg/dL POC Glucose (mg/dL) 125 H 128 H 134 H (70-110) mg/dL AST (14-36) U/L ALT (4-34) U/L Alkaline Phosphatase (38-126) U/L 08/02/22 08/02/22 08/02/22 Range/Units 04:21 06:37 07:05 Sodium 134 L (137-145) mmol/L Chloride 93 L (98-107) mmol/L Creatinine 3.07 H (0.52-1.04) mg/dL Glucose 275 H (74-99) mg/dL POC Glucose (mg/dL) 214 H 274 H (70-110) mg/dL AST 228 H (14-36) U/L ALT 401 H (4-34) U/L Alkaline Phosphatase 524 H (38-126) U/L 08/02/22 08/02/22 Range/Units 09:31 10:01 Sodium (137-145) mmol/L Chloride (98-107) mmol/L Creatinine (0.52-1.04) mg/dL Glucose (74-99) mg/dL POC Glucose (mg/dL) 66 L 45 L (70-110) mg/dL AST (14-36) U/L ALT (4-34) U/L Alkaline Phosphatase (38-126) U/L Microbiology - Last 24 Hours (Table) 07/27/22 01:48 Blood Culture - Final Blood No Growth after 144 hours Assessment and Plan Plan: Episodic hypoglycemia, due to brittle diabetes, higher dose of Levemir insulin and inconsistency in the oral intake Altered mentation secondary to episodic hypoglycemia Hypotension and sinus bradycardia, could potentially be related to patient accidentally taking too many of her cardiac meds. Patient was treated with 1 dose of atropine and transient dopamine infusion on admission, which was ultimately discontinued. Hypovolemic shock with a hemoglobin on admission of 6.6 g/dL. Patient was transfused 1 unit PRBCs. Hemoglobin is stable currently at 7.6 End-stage renal disease normally receives hemodialysis Monday, Monday, Monday. Chronic anemia Diabetes mellitus type 1 with extremely brittle blood sugar control. Previous history of cardiac arrest related to hyperkalemia on 07/11/2022 and a previous event in January 2022. History of CVA without residual Diabetic retinopathy and the patient is legally blind Diabetic neuropathy Restless leg syndrome Depression, denies any current suicidal ideation Plan No dialysis for today Continue D5 water Altered Levemir insulin NovoLog sliding scale coverage Monitor mental status Stop midodrine. Coreg resumed in addition to clonidine and she was also given hydralazine Dextrose given Will follow
[2022-08-02] MEDS ORDERED: VANCOMYCIN 750 MG in SODIUM CHLORIDE 0.9% 250 ML IVPB ONE (12:00)
[2022-08-02 12:20] LABS: Glucose,Whole Blood 95 mg/dL (70-110)
[2022-08-02] MEDS ORDERED: HALOPERIDOL LACTATE 5 MG/ML 1 ML VIAL IM STA ×2 (12:47→17:50)
[2022-08-02] MEDS ORDERED: MAGNESIUM SULFATE-D5W PMX 1 GM in DEXTROSE/WATER 1 100ML.BAG IVPB ONE (14:00)
[2022-08-02 14:09] LABS: Glucose,Whole Blood 114 mg/dL (70-110)
[2022-08-02 14:09] LABS: Glucose,Whole Blood 532 mg/dL (70-110)
[2022-08-02] MEDS ORDERED: flUPHENAZine 2.5 MG/ML (MDV) 10 ML VIAL IM PRN (14:20)
--- NOTE | 2022-08-02 14:29 | P.PN ---
Progress Note - Text Progress Note Date: 08/02/22 Interval History: Patient was seen today for psychiatric follow-up. Patient's nurse states the patient has been irritable, aggressive, skin picking agitated and refusing some treatment. Patient just received Haldol prn from nurse and was taking at times in the bed and appeared to be restless. She had her eyes open however had poor attention span, irritable and uncooperative. 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 Poor memory recall. She had very poor understanding and judgment. She was not able to answer most questions however does know her name only does not know today's date or her location. patient is denying any Si or Hi and denying any Ah or VH at this time. Mental Status Exam: General Appearance: Patient appears to be thin, short hair, stated age is lethargic, kicking at times, irritable, not following commands. Patient appears to have fair hygiene and grooming wearing hospital gown with poor eye contact. Behavior: Patient is lying in bed, irritable not uncooperative. poor attention span. Speech: Patient's speech is fluent and nonpressured. minimal Mood/Affect: Patient reports their mood is "fine", affect is congruent Suicidality/Homicidality: Patient denies having any suicidal or homicidal ideation intent or plan. Perceptions: Patient denies any visual hallucinations and denies any auditory hallucinations Though content/process: There is no evidence of any delusional thought content. concrete. no paranoia. irritable Memory and concentration: AOX1, only knows her name, poor concentrartion and memory recall. Judgment and insight: poor IMPRESSIONS: Delirium, unknown etiology history of depression and anxiety Anxiety disorder unspecified PLAN: -At this time patient DOES NOT meet criteria for inpatient psychiatric admission. -Would recommend the following medication changes/additions: can hold off on psychiatric meds at this time until delirium clears however they are likely NOT the cause of her delirium. continue melatonin 10 mg qhs for sleep. added prolixin 2 mg bid scheduled with PO and IM as prns for agitation. -check UA and ammonia level. continue treating underlying medical comorbidities. -Communicated plan to patient's nurse -psychiatry will continue to follow along. -Please contact with any questions.
[2022-08-02 15:43] LABS: Glucose,Whole Blood 48 mg/dL (70-110)
[2022-08-02 16:11] LABS: Glucose,Whole Blood 225 mg/dL (70-110)
[2022-08-02 17:34] LABS: Glucose,Whole Blood 61 mg/dL (70-110)
[2022-08-02 17:54] LABS: Glucose,Whole Blood 203 mg/dL (70-110)
[2022-08-02 18:15] LABS: Glucose,Whole Blood 153 mg/dL (70-110)
[2022-08-02] MEDS: DEXMEDETOMIDINE/0.9% NACL(PMX) 400 MCG in EMPTY BAG 1 BAG IV SCH ×2 (18:16→23:08)
[2022-08-02] MEDS ORDERED: HALOPERIDOL LACTATE 5 MG/ML 1 ML VIAL IVP ONE (18:19)
[2022-08-02 20:07] LABS: Glucose,Whole Blood 123 mg/dL (70-110)
[2022-08-02] MEDS: MELATONIN 5 MG TABLET PO SCH (20:59)
[2022-08-02] MEDS: FAMOTIDINE 20 MG TAB PO SCH (21:00)
[2022-08-02 22:08] LABS: Glucose,Whole Blood 198 mg/dL (70-110)
[2022-08-02 23:50] LABS: Glucose,Whole Blood 328 mg/dL (70-110)
[2022-08-03 02:47] LABS: Glucose,Whole Blood 449 mg/dL (70-110)
[2022-08-03] MEDS: DEXMEDETOMIDINE/0.9% NACL(PMX) 400 MCG in EMPTY BAG 1 BAG IV SCH ×3 (05:52→16:25)
[2022-08-03 06:33] LABS: Calcium 8.4 mg/dL (8.4-10.2); Magnesium 2.2 mg/dL (1.6-2.3); Potassium 4.7 mmol/L (3.5-5.1)
[2022-08-03 06:35] LABS: Anisocytosis Slight; Basophils # (A) 0.1 k/uL (0-0.2); Basophils % (A) 1 %; Eosinophils # (A) 0.3 k/uL (0-0.7); Eosinophils % (A) 6 %; HCT 23.7 % (34.0-46.0); HGB 7.7 gm/dL (11.4-16.0); Hypochromasia Slight; Lymphocytes # (A) 0.5 k/uL (1.0-4.8); Lymphocytes % (A) 10 %; MCH 28.2 pg (25.0-35.0); MCHC 32.5 g/dL (31.0-37.0); MCV 86.8 fL (80.0-100.0); Mean Platelet Volume 9.4; Monocytes # (A) 0.2 k/uL (0-1.0); Monocytes % (A) 4 %; Neutrophils # (A) 4.3 k/uL (1.3-7.7); Neutrophils % (A) 77 %; Platelet Count 280 k/uL (150-450); Poikilocytosis Slight; RBC 2.73 m/uL (3.80-5.40); RDW 16.8 % (11.5-15.5); WBC 5.5 k/uL (3.8-10.6)
[2022-08-03] MEDS: INSULIN ASPART (NovoLOG) 100 UNIT/ML VIAL SQ SCH ×3 (06:38→18:14)
[2022-08-03] MEDS: CALCIUM ACETATE 667 MG TAB PO SCH ×3 (06:38→18:14)
[2022-08-03] MEDS: INSULIN DETEMIR (LEVEMIR) 100 UNIT/ML SYR SQ SCH (06:38)
[2022-08-03] MEDS: carvediloL 12.5 MG TAB PO SCH ×2 (06:38→18:42)
[2022-08-03 06:39] LABS: Glucose,Whole Blood 551 mg/dL (70-110)
[2022-08-03 06:39] LABS: Glucose,Whole Blood 529 mg/dL (70-110)
[2022-08-03] MEDS: ASPIRIN 81 MG PO SCH (08:11)
[2022-08-03] MEDS: CYANOCOBALAMIN 500 MCG TAB PO SCH (08:12)
[2022-08-03] MEDS: ATORVASTATIN 40 MG TAB PO SCH (08:12)
[2022-08-03] MEDS: TORSEMIDE 20 MG TAB PO SCH ×2 (08:12→21:53)
[2022-08-03] MEDS: cloNIDine HCL 0.2 MG TAB PO SCH ×3 (08:45→21:52)
--- NOTE | 2022-08-03 09:14 | P.PN ---
Subjective Progress Note Date: 08/03/22 On today's evaluation of 08/01/2022, the patient is being seen for a follow-up. She is stable, calm and comfortable,. She is a very brittle diabetic and the patient has end-stage renal disease and the patient is currently on hemodialysis. The patient underwent hemodialysis today and the patient tolerat ed the procedure well. No chest pain. No shortness of breath. No hypotension. Blood pressure was quite elevated and nephrology is on the case. She is currently on oxygen at 4 L per minute nasal cannula. WBC count is at 6.6 with a hemoglobin of 7.9 and a platelet count of 267. Creatinine is at 4.29. Continues to have a very labile blood sugar. Sugars dropped down to 48 and the patient is currently treated and the patient has her lunch sitting at the bedside. Earlier this morning, her blood sugar was high as 416 and I see that her current insulin coverage is with Levemir 12 units along with 6 units of NovoLog with meals and a sliding scale coverage. Coreg 25 mg by mouth twice a day, and clonidine of no twice a day. The patient had a chest x-ray on 07/30/2021 that showed cardiomegaly and small right-sided pleural effusion. On today's evaluation of 08/02/2022, the patient is having another episode of hypoglycemia. The patient was given D50. The patient was placed on D5 water at the rate of 50 mL an hour. She is becoming uncooperative with the medical treatment. I told her the Levemir dose of being provided to this patient's was at a higher dose and the dose has been further lowered down to 8 units. The patient is not consistent with her oral intake. The patient has a very brittle labile blood sugar control. She still having massive lacerations. Her respiratory status is stable for now. She is receiving 6 units of NovoLog with meals plus a sliding scale coverage. She remains on same medication for now. Blood sugars being monitored on the medical floor. On 08/03/2022, the patient back to the intensive care unit. Transfer the patient yesterday as the patient was becoming progressively more delerious and her condition was not being manageable on the floor. The patient was becoming irritable, aggressive, agitated, refusing medication treatment and restless and she was skin picking. At that point, she was given a total of 10 mg of IV Haldol and she continued to be quite restless. She was brought into the intensive care unit and she is currently on Precedex which is running at 1.4 mcg/kg/m. Overall, she seems to more comfortable this morning. She is following commands. She is undergoing hemodialysis at the dialysis was started approximately 30 minutes ago. She was having issues with hypoglycemia the day yesterday. Note that she was given a higher dose of Levemir insulin which contributions of hypoglycemia. The blood sugar was as low was 33 and later on 48. Based on that, the patient was started on D5 water and currently she is ru nning high on her blood sugar. She is only on a sliding scale coverage. She is also on Levemir insulin and the current doses at 8 units. Oral intake is extremely poor and the patient does not eat consistently. No nausea. No emesis. No diarrhea. No abdominal pain. Hemodynamically, she is stable. She is moving all 4 extremities without limitation. The patient was also seen by psychiatry and she was started on Prolixin 2 mg at bedtime and 2 mg by mouth twice a day and when necessary. She is also on a combination of Coreg and Catapres for BP Objective - Vital Signs Vital signs: Vital Signs Temp 99.6 F 08/03/22 08:00 Pulse 85 08/03/22 09:00 Resp 23 08/03/22 09:00 BP 172/90 08/03/22 09:00 Pulse Ox 100 08/03/22 09:00 FiO2 2 08/03/22 00:00 Intake & Output 08/02/22 08/03/22 08/03/22 18:59 06:59 18:59 Intake Total 2.764 361.505 Output Total 0 0 Balance 2.764 361.505 0 Weight 49.7 kg Intake: Intake, IV Titration 2.764 361.505 Amount Dexmedetomidine/0.9% NaCl 2.764 161.505 (Pmx) 400 mcg In Empty Bag 1 bag @ 0.2 MCG/KG/HR 2.475 mls/hr IV .Q24H [facility] Rx#:[id number] Dextrose 10% in Water 500 200 ml In Empty Bag 1 bag @ 50 mls/hr IV .Q10H [facility] Rx #:[id number] Oral 0 Tube Feeding 0 Output: Urine 0 0 - Exam GENERAL EXAM: Alert, cachectic 31-year-old female, on 4 L nasal cannula, comfortable in no apparent distress. HEAD: Normocephalic and atraumatic EYES: Normal reaction of pupils, equal size. NOSE: Clear with pink turbinates. THROAT: No erythema or exudates. NECK: No masses, no JVD. CHEST: No chest wall deformity. LUNGS: Equal air entry with no crackles, wheeze, rhonchi or dullness. CVS: S1 and S2 normal with no audible murmur, regular rhythm. No extra heart sounds ABDOMEN: No hepatosplenomegaly, active bowel sounds, no guarding or rigidity. SPINE: No scoliosis or deformity SKIN: No rashes CENTRAL NERVOUS SYSTEM: No focal deficits, tone is normal in all 4 extremities. The patient is communicating. Following commands. She is restless in bed. She is jumpy. She is alert to self and people. No focal neurological deficits. EXTREMITIES: There is no peripheral edema, clubbing, or cyanosis. Left arm fistula with positive thrill and bruit. Peripheral pulses are intact. - Labs CBC & Chem 7: 08/03/22 06:00 08/03/22 06:00 Labs: Abnormal Lab Results - Last 24 Hours (Table) 08/02/22 08/02/22 08/02/22 Range/Units 07:05 09:31 10:01 RBC 2.73 L (4.10-5.20) X 10*6/uL Hgb 7.6 L (12.0-15.0) g/dL Hct 23.9 L (37.2-46.3) % MCHC 31.8 L (32.0-37.0) g/dL RDW (11.5-15.5) % Absolute Nucleated RBC 0.02 H (0.00-0.00) X 10*3/uL Lymphocytes # (1.0-4.8) k/uL NRBC/100 WBC Diff 0.3 H (0.0-0.0) /100 WBCS Sodium (137-145) mmol/L Chloride (98-107) mmol/L Carbon Dioxide (22-30) mmol/L BUN (7-17) mg/dL Creatinine (0.52-1.04) mg/dL Glucose (74-99) mg/dL POC Glucose (mg/dL) 66 L 45 L (70-110) mg/dL 08/02/22 08/02/22 08/02/22 Range/Units 10:28 11:34 14:00 RBC (4.10-5.20) X 10*6/uL Hgb (12.0-15.0) g/dL Hct (37.2-46.3) % MCHC (32.0-37.0) g/dL RDW (11.5-15.5) % Absolute Nucleated RBC (0.00-0.00) X 10*3/uL Lymphocytes # (1.0-4.8) k/uL NRBC/100 WBC Diff (0.0-0.0) /100 WBCS Sodium (137-145) mmol/L Chloride (98-107) mmol/L Carbon Dioxide (22-30) mmol/L BUN (7-17) mg/dL Creatinine (0.52-1.04) mg/dL Glucose (74-99) mg/dL POC Glucose (mg/dL) 134 H 33 L 532 H (70-110) mg/dL 08/02/22 08/02/22 08/02/22 Range/Units 14:05 15:41 16:09 RBC (4.10-5.20) X 10*6/uL Hgb (12.0-15.0) g/dL Hct (37.2-46.3) % MCHC (32.0-37.0) g/dL RDW (11.5-15.5) % Absolute Nucleated RBC (0.00-0.00) X 10*3/uL Lymphocytes # (1.0-4.8) k/uL NRBC/100 WBC Diff (0.0-0.0) /100 WBCS Sodium (137-145) mmol/L Chloride (98-107) mmol/L Carbon Dioxide (22-30) mmol/L BUN (7-17) mg/dL Creatinine (0.52-1.04) mg/dL Glucose (74-99) mg/dL POC Glucose (mg/dL) 114 H 48 L 225 H (70-110) mg/dL 08/02/22 08/02/22 08/02/22 Range/Units 17:32 17:52 18:04 RBC (4.10-5.20) X 10*6/uL Hgb (12.0-15.0) g/dL Hct (37.2-46.3) % MCHC (32.0-37.0) g/dL RDW (11.5-15.5) % Absolute Nucleated RBC (0.00-0.00) X 10*3/uL Lymphocytes # (1.0-4.8) k/uL NRBC/100 WBC Diff (0.0-0.0) /100 WBCS Sodium (137-145) mmol/L Chloride (98-107) mmol/L Carbon Dioxide (22-30) mmol/L BUN (7-17) mg/dL Creatinine (0.52-1.04) mg/dL Glucose (74-99) mg/dL POC Glucose (mg/dL) 61 L 203 H 153 H (70-110) mg/dL 08/02/22 08/02/22 08/02/22 Range/Units 20:06 22:05 23:49 RBC (4.10-5.20) X 10*6/uL Hgb (12.0-15.0) g/dL Hct (37.2-46.3) % MCHC (32.0-37.0) g/dL RDW (11.5-15.5) % Absolute Nucleated RBC (0.00-0.00) X 10*3/uL Lymphocytes # (1.0-4.8) k/uL NRBC/100 WBC Diff (0.0-0.0) /100 WBCS Sodium (137-145) mmol/L Chloride (98-107) mmol/L Carbon Dioxide (22-30) mmol/L BUN (7-17) mg/dL Creatinine (0.52-1.04) mg/dL Glucose (74-99) mg/dL POC Glucose (mg/dL) 123 H 198 H 328 H (70-110) mg/dL 08/03/22 08/03/22 08/03/22 Range/Units 02:45 06:00 06:00 RBC 2.73 L (4.10-5.20) X 10*6/uL Hgb 7.7 L (12.0-15.0) g/dL Hct 23.7 L (37.2-46.3) % MCHC (32.0-37.0) g/dL RDW 16.8 H (11.5-15.5) % Absolute Nucleated RBC (0.00-0.00) X 10*3/uL Lymphocytes # 0.5 L (1.0-4.8) k/uL NRBC/100 WBC Diff (0.0-0.0) /100 WBCS Sodium 131 L (137-145) mmol/L Chloride 93 L (98-107) mmol/L Carbon Dioxide 20 L (22-30) mmol/L BUN 21 H (7-17) mg/dL Creatinine 4.42 H (0.52-1.04) mg/dL Glucose 511 H* (74-99) mg/dL POC Glucose (mg/dL) 449 H (70-110) mg/dL 08/03/22 08/03/22 Range/Units 06:36 06:37 RBC (4.10-5.20) X 10*6/uL Hgb (12.0-15.0) g/dL Hct (37.2-46.3) % MCHC (32.0-37.0) g/dL RDW (11.5-15.5) % Absolute Nucleated RBC (0.00-0.00) X 10*3/uL Lymphocytes # (1.0-4.8) k/uL NRBC/100 WBC Diff (0.0-0.0) /100 WBCS Sodium (137-145) mmol/L Chloride (98-107) mmol/L Carbon Dioxide (22-30) mmol/L BUN (7-17) mg/dL Creatinine (0.52-1.04) mg/dL Glucose (74-99) mg/dL POC Glucose (mg/dL) 529 H 551 H (70-110) mg/dL Microbiology - Last 24 Hours (Table) 07/27/22 01:48 Blood Culture - Final Blood No Growth after 144 hours Assessment and Plan Plan: Episodic hypoglycemia, due to brittle diabetes, higher dose of Levemir insulin and inconsistency in the oral intake, the patient was placed on D5 water, she is currently off the D5 water and the patient is hyperglycemic. Altered mentation secondary to episodic hypoglycemia, rule out metabolic encephalopathy secondary to episodes of hypoglycemia. She has other metabolic factors including end-stage renal disease. She developed delirium with agitation yesterday and the patient is currently on Precedex. She was also started on Prolixin. She required Haldol. She seems to much more comfortable and rested at this point in time. End-stage renal disease normally receives hemodialysis Monday, Monday, Monday. Chronic anemia, hemoglobin was at 7.7 Diabetes mellitus type 1 with extremely brittle blood sugar control. Previous history of cardiac arrest related to hyperkalemia on 07/11/2022 and a previous event in January 2022. History of CVA without residual Diabetic retinopathy and the patient is legally blind Diabetic neuropathy Restless leg syndrome Depression, denies any current suicidal ideation Plan Hemodialysis today, and the patient is undergoing hemodialysis this morning Discontinue D5 water as the patient recovers from the episodes of hypoglycemia patient hyperglycemic Altered Levemir insulin 4 units twice a day, and the patient is going to receive sliding scale insulin coverage NovoLog sliding scale coverage Continue Precedex for now gradually wean it off, and the patient was started on Prolixin Monitor mental status Coreg resumed in addition to clonidine Keep the patient intensive care unit for now. We'll gradually wean off the Precedex. Appreciated the psychiatry evaluation. Continue to follow.
--- NOTE | 2022-08-03 10:09 | P.PN ---
Subjective Patient is seen in follow-up for end-stage renal disease. Became agitated and was hallucinating yesterday. Transferred to ICU. Tolerating dialysis well. Blood glucose high this morning. Vital signs are stable. General: No acute distress. HEENT: Head exam is unremarkable. LUNGS: No audible rhonchi or wheezes. HEART: Rate and Rhythm are regular. ABDOMEN: No distention. EXTREMITITES: No edema. Objective - Vital Signs Vital signs: Vital Signs Temp 99.6 F 08/03/22 08:00 Pulse 85 08/03/22 09:00 Resp 23 08/03/22 09:00 BP 172/90 08/03/22 09:00 Pulse Ox 100 08/03/22 09:00 FiO2 2 08/03/22 00:00 Intake & Output 08/02/22 08/03/22 08/03/22 18:59 06:59 18:59 Intake Total 2.764 361.505 66.124 Output Total 0 0 Balance 2.764 361.505 66.124 Weight 49.7 kg Intake: Intake, IV Titration 2.764 361.505 66.124 Amount Dexmedetomidine/0.9% NaCl 2.764 161.505 66.124 (Pmx) 400 mcg In Empty Bag 1 bag @ 0.2 MCG/KG/HR 2.475 mls/hr IV .Q24H [facility] Rx#:[id number] Dextrose 10% in Water 500 200 ml In Empty Bag 1 bag @ 50 mls/hr IV .Q10H [facility] Rx #:[id number] Oral 0 Tube Feeding 0 Output: Urine 0 0 - Labs CBC & Chem 7: 08/03/22 06:00 08/03/22 06:00 Labs: Abnormal Lab Results - Last 24 Hours (Table) 08/02/22 08/02/22 08/02/22 Range/Units 07:05 10:01 10:28 RBC 2.73 L (4.10-5.20) X 10*6/uL Hgb 7.6 L (12.0-15.0) g/dL Hct 23.9 L (37.2-46.3) % MCHC 31.8 L (32.0-37.0) g/dL RDW (11.5-15.5) % Absolute Nucleated RBC 0.02 H (0.00-0.00) X 10*3/uL Lymphocytes # (1.0-4.8) k/uL NRBC/100 WBC Diff 0.3 H (0.0-0.0) /100 WBCS Sodium (137-145) mmol/L Chloride (98-107) mmol/L Carbon Dioxide (22-30) mmol/L BUN (7-17) mg/dL Creatinine (0.52-1.04) mg/dL Glucose (74-99) mg/dL POC Glucose (mg/dL) 45 L 134 H (70-110) mg/dL 08/02/22 08/02/22 08/02/22 Range/Units 11:34 14:00 14:05 RBC (4.10-5.20) X 10*6/uL Hgb (12.0-15.0) g/dL Hct (37.2-46.3) % MCHC (32.0-37.0) g/dL RDW (11.5-15.5) % Absolute Nucleated RBC (0.00-0.00) X 10*3/uL Lymphocytes # (1.0-4.8) k/uL NRBC/100 WBC Diff (0.0-0.0) /100 WBCS Sodium (137-145) mmol/L Chloride (98-107) mmol/L Carbon Dioxide (22-30) mmol/L BUN (7-17) mg/dL Creatinine (0.52-1.04) mg/dL Glucose (74-99) mg/dL POC Glucose (mg/dL) 33 L 532 H 114 H (70-110) mg/dL 08/02/22 08/02/22 08/02/22 Range/Units 15:41 16:09 17:32 RBC (4.10-5.20) X 10*6/uL Hgb (12.0-15.0) g/dL Hct (37.2-46.3) % MCHC (32.0-37.0) g/dL RDW (11.5-15.5) % Absolute Nucleated RBC (0.00-0.00) X 10*3/uL Lymphocytes # (1.0-4.8) k/uL NRBC/100 WBC Diff (0.0-0.0) /100 WBCS Sodium (137-145) mmol/L Chloride (98-107) mmol/L Carbon Dioxide (22-30) mmol/L BUN (7-17) mg/dL Creatinine (0.52-1.04) mg/dL Glucose (74-99) mg/dL POC Glucose (mg/dL) 48 L 225 H 61 L (70-110) mg/dL 08/02/22 08/02/22 08/02/22 Range/Units 17:52 18:04 20:06 RBC (4.10-5.20) X 10*6/uL Hgb (12.0-15.0) g/dL Hct (37.2-46.3) % MCHC (32.0-37.0) g/dL RDW (11.5-15.5) % Absolute Nucleated RBC (0.00-0.00) X 10*3/uL Lymphocytes # (1.0-4.8) k/uL NRBC/100 WBC Diff (0.0-0.0) /100 WBCS Sodium (137-145) mmol/L Chloride (98-107) mmol/L Carbon Dioxide (22-30) mmol/L BUN (7-17) mg/dL Creatinine (0.52-1.04) mg/dL Glucose (74-99) mg/dL POC Glucose (mg/dL) 203 H 153 H 123 H (70-110) mg/dL 08/02/22 08/02/22 08/03/22 Range/Units 22:05 23:49 02:45 RBC (4.10-5.20) X 10*6/uL Hgb (12.0-15.0) g/dL Hct (37.2-46.3) % MCHC (32.0-37.0) g/dL RDW (11.5-15.5) % Absolute Nucleated RBC (0.00-0.00) X 10*3/uL Lymphocytes # (1.0-4.8) k/uL NRBC/100 WBC Diff (0.0-0.0) /100 WBCS Sodium (137-145) mmol/L Chloride (98-107) mmol/L Carbon Dioxide (22-30) mmol/L BUN (7-17) mg/dL Creatinine (0.52-1.04) mg/dL Glucose (74-99) mg/dL POC Glucose (mg/dL) 198 H 328 H 449 H (70-110) mg/dL 08/03/22 08/03/22 08/03/22 Range/Units 06:00 06:00 06:36 RBC 2.73 L (4.10-5.20) X 10*6/uL Hgb 7.7 L (12.0-15.0) g/dL Hct 23.7 L (37.2-46.3) % MCHC (32.0-37.0) g/dL RDW 16.8 H (11.5-15.5) % Absolute Nucleated RBC (0.00-0.00) X 10*3/uL Lymphocytes # 0.5 L (1.0-4.8) k/uL NRBC/100 WBC Diff (0.0-0.0) /100 WBCS Sodium 131 L (137-145) mmol/L Chloride 93 L (98-107) mmol/L Carbon Dioxide 20 L (22-30) mmol/L BUN 21 H (7-17) mg/dL Creatinine 4.42 H (0.52-1.04) mg/dL Glucose 511 H* (74-99) mg/dL POC Glucose (mg/dL) 529 H (70-110) mg/dL 08/03/22 Range/Units 06:37 RBC (4.10-5.20) X 10*6/uL Hgb (12.0-15.0) g/dL Hct (37.2-46.3) % MCHC (32.0-37.0) g/dL RDW (11.5-15.5) % Absolute Nucleated RBC (0.00-0.00) X 10*3/uL Lymphocytes # (1.0-4.8) k/uL NRBC/100 WBC Diff (0.0-0.0) /100 WBCS Sodium (137-145) mmol/L Chloride (98-107) mmol/L Carbon Dioxide (22-30) mmol/L BUN (7-17) mg/dL Creatinine (0.52-1.04) mg/dL Glucose (74-99) mg/dL POC Glucose (mg/dL) 551 H (70-110) mg/dL Assessment and Plan Plan: Assessment: 1. End-stage renal disease maintained on hemodialysis on Monday schedule. 2. Acute blood loss anemia status post blood transfusion. No active bleeding. Status post IV DDAVP. On Aranesp. 3. 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 4. Hypertension with chronic kidney disease. 5. Brittle diabetes. 6. Delirium. Psychiatry following. Plan: Currently seen while undergoing hemodialysis. Maintain current antihypertensives with parameters.
[2022-08-03 11:59] LABS: Glucose,Whole Blood 62 mg/dL (70-110)
[2022-08-03] MEDS: DEXTROSE 50% SYRINGE 50 ML IVP PRN ×4 (12:13→15:53)
[2022-08-03 12:17] LABS: Glucose,Whole Blood 216 mg/dL (70-110)
[2022-08-03] MEDS: DARBEPOETIN ALFA 40 MCG/0.4 ML SYRINGE SQ SCH (12:35)
[2022-08-03 13:56] LABS: Glucose,Whole Blood 23 mg/dL (70-110)
--- NOTE | 2022-08-03 14:09 | P.PN ---
Progress Note - Text Progress Note Date: 08/03/22 Interval History: Patient was seen today for psychiatric follow-up. Patient's nurse states the patient has been more directable today since HD. Patient was seen laying in bed and was agreeable to speak to designer/writer. she did not endorse any complaints today and denies any s/e from her meds. she was fairly concrete and had poor eye contact. Patient claims that she has been eating fairly. she has improvement in terms of her confusion and cooperativeness today.improving judgment. She knew her name, and date however beleived that she is in the [facility] "ICU". patient is denying any Si or Hi and denying any Ah or VH at this time. Mental Status Exam: General Appearance: Patient appears to be thin, short hair, stated age is less lethargic, less irritable, following commands. Patient appears to have fair hygiene and grooming wearing hospital gown with poor eye contact. Behavior: Patient is lying in bed, irritable not uncooperative. poor attention span, improving mildly Speech: Patient's speech is fluent and nonpressured. minimal Mood/Affect: Patient reports their mood is "fine", affect is congruent and constricted Suicidality/Homicidality: Patient denies having any suicidal or homicidal ideation intent or plan. Perceptions: Patient denies any visual hallucinations and denies any auditory hallucinations Though content/process: There is no evidence of any delusional thought content. concrete. no paranoia. less irritable Memory and concentration: AOX2, does not know her correct location, improving concentrartion and memory recall. Judgment and insight: poor, improving mildly IMPRESSIONS: Delirium, unknown etiology history of depression and anxiety Anxiety disorder unspecified PLAN: -At this time patient DOES NOT meet criteria for inpatient psychiatric admission. -Would recommend the following medication changes/additions: continue to hold off on psychiatric meds at this time until delirium clears however they are likely NOT the cause of her delirium. continue melatonin 10 mg qhs for sleep. prolixin 2 mg bid scheduled with PO and IM as prns for agitation. -check UA . continue treating underlying medical comorbidities. -Communicated plan to patient's nurse -psychiatry will continue to follow along as needed -Please contact with any questions.
[2022-08-03 14:11] LABS: Glucose,Whole Blood 55 mg/dL (70-110)
[2022-08-03 14:29] LABS: Glucose,Whole Blood 226 mg/dL (70-110)
[2022-08-03 15:47] LABS: Glucose,Whole Blood 39 mg/dL (70-110)
[2022-08-03 16:05] LABS: Glucose,Whole Blood 230 mg/dL (70-110)
[2022-08-03] MEDS: DEXTROSE 10% IN WATER 500 ML in EMPTY BAG 1 BAG IV SCH (16:06)
[2022-08-03 17:40] LABS: Glucose,Whole Blood 94 mg/dL (70-110)
[2022-08-03 20:20] LABS: Glucose,Whole Blood 146 mg/dL (70-110)
[2022-08-03] MEDS ORDERED: INSULIN DETEMIR (LEVEMIR) 100 UNIT/ML SYR SQ SCH (21:00)
--- NOTE | 2022-08-03 21:12 | PN ---
PROGRESS NOTE DATE OF SERVICE: 08/02/2022 CHIEF COMPLAINT: Hypotension, uncontrolled hypertension, and diabetes. HISTORY OF PRESENT ILLNESS: This lady is doing fairly well. Her blood pressures are fluctuating quite a bit now. Blood sugars are as well. She is still complaining of a lot of low back pain. She has also started to hallucinate, which is unusual for her. REVIEW OF SYSTEMS: Unobtainable. PHYSICAL EXAMINATION: CHEST: Clear. CARDIAC: Normal. ABDOMEN: Soft and nontender. NEUROLOGIC: She is quite agitated and stating that she is seeing things. IMPRESSION: 1. Delirium with hallucinations, etiology unknown. 2. Uncontrolled hypertension. 3. Uncontrolled diabetes. 4. Stage 5 chronic kidney disease. 5. Retinopathy and amblyopia. AN: 1. Remove many of her medications. 2. Single injection of Haldol 1 mg. 3. Psychiatric consult. 4. Laboratory studies. MMODL / IJN: [id number] /
[2022-08-03] MEDS: FAMOTIDINE 20 MG TAB PO SCH (21:52)
[2022-08-03] MEDS: MELATONIN 5 MG TABLET PO SCH (21:52)
[2022-08-03 22:03] LABS: Glucose,Whole Blood 217 mg/dL (70-110)
[2022-08-04 00:51] LABS: Glucose,Whole Blood 237 mg/dL (70-110)
[2022-08-04] MEDS: DEXTROSE 10% IN WATER 500 ML in EMPTY BAG 1 BAG IV SCH ×3 (01:18→06:32)
--- NOTE | 2022-08-04 01:54 | PN ---
PROGRESS NOTE DATE OF SERVICE: 08/03/2022 CHIEF COMPLAINT: Stage V CKD, delirium, hypertension, uncontrolled diabetes. HISTORY OF PRESENT ILLNESS: This lady was moved back to ICU. She is still occasionally delirious and hallucinating. She has been seen by Psychiatry. Numerous medications have been stopped, but her condition is not changed. Laboratory keith, there is nothing to explain her hallucinations. PHYSICAL EXAMINATION: VITAL SIGNS: Normal at this time. CHEST: Clear. CARDIAC: Normal. ABDOMEN: Soft, nontender. IMPRESSION: 1. Hallucinations and delirium. 2. Uncontrolled diabetes. 3. Uncontrolled hypertension. 4. Stage 5 chronic kidney disease. 5. Amblyopia. 6. Depression. PLAN: Continue with current management and await to see if her delirium improves. There is no obvious etiology at this time. MMODL / IJN: [id number] /
[2022-08-04 03:56] LABS: Glucose,Whole Blood 87 mg/dL (70-110)
[2022-08-04 04:21] LABS: Anisocytosis Slight; Basophils # (A) 0.1 k/uL (0-0.2); Basophils % (A) 1 %; Eosinophils # (A) 0.6 k/uL (0-0.7); Eosinophils % (A) 10 %; HCT 25.7 % (34.0-46.0); HGB 8.5 gm/dL (11.4-16.0); Lymphocytes # (A) 1.1 k/uL (1.0-4.8); Lymphocytes % (A) 18 %; MCH 28.4 pg (25.0-35.0); Mean Platelet Volume 8.2; Monocytes # (A) 0.3 k/uL (0-1.0); Monocytes % (A) 4 %; Neutrophils % (A) 66 %; Platelet Count 266 k/uL (150-450); Poikilocytosis Slight; RBC 2.99 m/uL (3.80-5.40); RDW 17.3 % (11.5-15.5); WBC 6.1 k/uL (3.8-10.6)
[2022-08-04 04:44] LABS: Calcium 8.8 mg/dL (8.4-10.2); Potassium 3.8 mmol/L (3.5-5.1)
[2022-08-04 04:49] LABS: Vancomycin,Random 10.1 ug/mL
[2022-08-04 05:53] LABS: Glucose,Whole Blood 39 mg/dL (70-110); Glucose,Whole Blood 58 mg/dL (70-110)
[2022-08-04] MEDS: DEXTROSE 50% SYRINGE 50 ML IVP PRN (05:54)
[2022-08-04 06:11] LABS: Glucose,Whole Blood 128 mg/dL (70-110)
[2022-08-04] MEDS: carvediloL 12.5 MG TAB PO SCH ×2 (06:32→16:45)
[2022-08-04] MEDS: CALCIUM ACETATE 667 MG TAB PO SCH ×3 (06:32→16:45)
[2022-08-04] MEDS: INSULIN ASPART (NovoLOG) 100 UNIT/ML VIAL SQ SCH ×7 (06:46→22:08)
[2022-08-04] MEDS: ASPIRIN 81 MG PO SCH (08:16)
[2022-08-04] MEDS: TORSEMIDE 20 MG TAB PO SCH ×2 (08:16→22:04)
[2022-08-04] MEDS: CYANOCOBALAMIN 500 MCG TAB PO SCH (08:16)
[2022-08-04] MEDS: ATORVASTATIN 40 MG TAB PO SCH (08:16)
[2022-08-04] MEDS: cloNIDine HCL 0.2 MG TAB PO SCH (08:17)
[2022-08-04 08:24] LABS: Glucose,Whole Blood 94 mg/dL (70-110)
--- NOTE | 2022-08-04 09:30 | P.PN ---
Subjective Patient is seen in follow-up for end-stage renal disease. Mentation better today. Resting in bed. Tolerated 5 L ultrafiltration yesterday. Vital signs are stable. General: No acute distress. HEENT: Head exam is unremarkable. LUNGS: No audible rhonchi or wheezes. HEART: Rate and Rhythm are regular. ABDOMEN: No distention. EXTREMITITES: No edema. Objective - Vital Signs Vital signs: Vital Signs Temp 98.4 F 08/04/22 08:00 Pulse 80 08/04/22 08:00 Resp 15 08/04/22 08:00 BP 148/106 08/04/22 08:00 Pulse Ox 96 08/04/22 08:00 FiO2 2 08/04/22 00:00 Intake & Output 08/03/22 08/04/22 08/04/22 18:59 06:59 18:59 Intake Total 484.722 283.189 100 Output Total 5000 0 Balance -4515.278 283.189 100 Weight 49.7 kg 41.1 kg Intake: Intake, IV Titration 184.722 283.189 100 Amount Dexmedetomidine/0.9% NaCl 184.722 33.189 (Pmx) 400 mcg In Empty Bag 1 bag @ 0.2 MCG/KG/HR 2.475 mls/hr IV .Q24H [facility] Rx#:[id number] Dextrose 10% in Water 500 250 100 ml In Empty Bag 1 bag @ 50 mls/hr IV .Q10H [facility] Rx #:[id number] Oral 0 Hemodialysis 300 Output: Urine 0 0 Hemodialysis 5000 - Labs CBC & Chem 7: 08/04/22 04:11 08/04/22 04:11 Labs: Abnormal Lab Results - Last 24 Hours (Table) 08/03/22 08/03/22 08/03/22 Range/Units 11:57 12:16 13:53 RBC (3.80-5.40) m/uL Hgb (11.4-16.0) gm/dL Hct (34.0-46.0) % RDW (11.5-15.5) % Sodium (137-145) mmol/L Chloride (98-107) mmol/L Creatinine (0.52-1.04) mg/dL Glucose (74-99) mg/dL POC Glucose (mg/dL) 62 L 216 H 23 L (70-110) mg/dL 08/03/22 08/03/22 08/03/22 Range/Units 14:10 14:27 15:45 RBC (3.80-5.40) m/uL Hgb (11.4-16.0) gm/dL Hct (34.0-46.0) % RDW (11.5-15.5) % Sodium (137-145) mmol/L Chloride (98-107) mmol/L Creatinine (0.52-1.04) mg/dL Glucose (74-99) mg/dL POC Glucose (mg/dL) 55 L 226 H 39 L (70-110) mg/dL 08/03/22 08/03/22 08/03/22 Range/Units 16:03 20:18 22:01 RBC (3.80-5.40) m/uL Hgb (11.4-16.0) gm/dL Hct (34.0-46.0) % RDW (11.5-15.5) % Sodium (137-145) mmol/L Chloride (98-107) mmol/L Creatinine (0.52-1.04) mg/dL Glucose (74-99) mg/dL POC Glucose (mg/dL) 230 H 146 H 217 H (70-110) mg/dL 08/04/22 08/04/22 08/04/22 Range/Units 00:49 04:11 04:11 RBC 2.99 L (3.80-5.40) m/uL Hgb 8.5 L (11.4-16.0) gm/dL Hct 25.7 L (34.0-46.0) % RDW 17.3 H (11.5-15.5) % Sodium 130 L (137-145) mmol/L Chloride 92 L (98-107) mmol/L Creatinine 3.22 H (0.52-1.04) mg/dL Glucose 73 L (74-99) mg/dL POC Glucose (mg/dL) 237 H (70-110) mg/dL 08/04/22 08/04/22 08/04/22 Range/Units 05:51 05:51 06:10 RBC (3.80-5.40) m/uL Hgb (11.4-16.0) gm/dL Hct (34.0-46.0) % RDW (11.5-15.5) % Sodium (137-145) mmol/L Chloride (98-107) mmol/L Creatinine (0.52-1.04) mg/dL Glucose (74-99) mg/dL POC Glucose (mg/dL) 39 L 58 L 128 H (70-110) mg/dL Microbiology - Last 24 Hours (Table) 08/03/22 06:00 Blood Culture - Preliminary Blood No Growth after 24 hours 08/02/22 13:23 Blood Culture - Preliminary Blood No Growth after 24 hours Assessment and Plan Plan: Assessment: 1. End-stage renal disease maintained on hemodialysis on Monday schedule. 2. Acute blood loss anemia status post blood transfusion. No active bleeding. Status post IV DDAVP. On Aranesp. 3. 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 4. Hypertension with chronic kidney disease. 5. Brittle diabetes. 6. Delirium. Psychiatry following. Plan: Hemodialysis tomorrow. Maintain current antihypertensives with parameters. Increase dose of clonidine.
--- NOTE | 2022-08-04 11:21 | P.PN ---
Subjective Progress Note Date: 08/04/22 On today's evaluation of 08/01/2022, the patient is being seen for a follow-up. She is stable, calm and comfortable,. She is a very brittle diabetic and the patient has end-stage renal disease and the patient is currently on hemodialysis. The patient underwent hemodialysis today and the patient tolerat ed the procedure well. No chest pain. No shortness of breath. No hypotension. Blood pressure was quite elevated and nephrology is on the case. She is currently on oxygen at 4 L per minute nasal cannula. WBC count is at 6.6 with a hemoglobin of 7.9 and a platelet count of 267. Creatinine is at 4.29. Continues to have a very labile blood sugar. Sugars dropped down to 48 and the patient is currently treated and the patient has her lunch sitting at the bedside. Earlier this morning, her blood sugar was high as 416 and I see that her current insulin coverage is with Levemir 12 units along with 6 units of NovoLog with meals and a sliding scale coverage. Coreg 25 mg by mouth twice a day, and clonidine of no twice a day. The patient had a chest x-ray on 07/30/2021 that showed cardiomegaly and small right-sided pleural effusion. On today's evaluation of 08/02/2022, the patient is having another episode of hypoglycemia. The patient was given D50. The patient was placed on D5 water at the rate of 50 mL an hour. She is becoming uncooperative with the medical treatment. I told her the Levemir dose of being provided to this patient's was at a higher dose and the dose has been further lowered down to 8 units. The patient is not consistent with her oral intake. The patient has a very brittle labile blood sugar control. She still having massive lacerations. Her respiratory status is stable for now. She is receiving 6 units of NovoLog with meals plus a sliding scale coverage. She remains on same medication for now. Blood sugars being monitored on the medical floor. On 08/03/2022, the patient back to the intensive care unit. Transfer the patient yesterday as the patient was becoming progressively more delerious and her condition was not being manageable on the floor. The patient was becoming irritable, aggressive, agitated, refusing medication treatment and restless and she was skin picking. At that point, she was given a total of 10 mg of IV Haldol and she continued to be quite restless. She was brought into the intensive care unit and she is currently on Precedex which is running at 1.4 mcg/kg/m. Overall, she seems to more comfortable this morning. She is following commands. She is undergoing hemodialysis at the dialysis was started approximately 30 minutes ago. She was having issues with hypoglycemia the day yesterday. Note that she was given a higher dose of Levemir insulin which contributions of hypoglycemia. The blood sugar was as low was 33 and later on 48. Based on that, the patient was started on D5 water and currently she is ru nning high on her blood sugar. She is only on a sliding scale coverage. She is also on Levemir insulin and the current doses at 8 units. Oral intake is extremely poor and the patient does not eat consistently. No nausea. No emesis. No diarrhea. No abdominal pain. Hemodynamically, she is stable. She is moving all 4 extremities without limitation. The patient was also seen by psychiatry and she was started on Prolixin 2 mg at bedtime and 2 mg by mouth twice a day and when necessary. She is also on a combination of Coreg and Catapres for BP On today's evaluation of 08/04/2022, the patient is being seen for a follow-up. The patient remains in intensive care unit. Noted the patient had an acute delirium which ultimately improved. The patient was placed on Precedex which was weaned off and discontinued. The patient is currently on Prolixin. On today's evaluation, she is awake and alert and following commands. No agitation. Nevertheless, the patient is having issues with hypoglycemia. Mother the patient was on Levemir insulin and I ended up discontinuing the Levemir insulin as the patient's blood sugars have been persistently low. The patient was placed on D10 infusion and the most recent blood sugar is above 90. Throughout the night, the patient was having episodes of hypoglycemia. She also needed D50 IV pushes. Her oral intake is not consistent. I was told that she had a good dinner last night. She did have some emesis following her dinner. She remains on 2 L of oxygen by nasal cannula. Hemodialysis was performed yesterday and the patient total of 4 L of ultrafiltration. No agitation. Levemir insulin as been discontinued. Objective - Vital Signs Vital signs: Vital Signs Temp 98.4 F 08/04/22 08:00 Pulse 80 08/04/22 08:00 Resp 15 08/04/22 08:00 BP 148/106 08/04/22 08:00 Pulse Ox 96 08/04/22 08:00 FiO2 2 08/04/22 00:00 Intake & Output 08/03/22 08/04/22 08/04/22 18:59 06:59 18:59 Intake Total 484.722 283.189 100 Output Total 5000 0 Balance -4515.278 283.189 100 Weight 49.7 kg 41.1 kg Intake: Intake, IV Titration 184.722 283.189 100 Amount Dexmedetomidine/0.9% NaCl 184.722 33.189 (Pmx) 400 mcg In Empty Bag 1 bag @ 0.2 MCG/KG/HR 2.475 mls/hr IV .Q24H [facility] Rx#:[id number] Dextrose 10% in Water 500 250 100 ml In Empty Bag 1 bag @ 50 mls/hr IV .Q10H [facility] Rx #:[id number] Oral 0 Hemodialysis 300 Output: Urine 0 0 Hemodialysis 5000 - Exam GENERAL EXAM: Alert, cachectic 31-year-old female, on 2 L nasal cannula, comfortable in no apparent distress. HEAD: Normocephalic and atraumatic EYES: Normal reaction of pupils, equal size. NOSE: Clear with pink turbinates. THROAT: No erythema or exudates. NECK: No masses, no JVD. CHEST: No chest wall deformity. LUNGS: Equal air entry with no crackles, wheeze, rhonchi or dullness. CVS: S1 and S2 normal with no audible murmur, regular rhythm. No extra heart sounds ABDOMEN: No hepatosplenomegaly, active bowel sounds, no guarding or rigidity. SPINE: No scoliosis or deformity SKIN: No rashes CENTRAL NERVOUS SYSTEM: No focal deficits, tone is normal in all 4 extremities. The patient is communicating. Following commands. She is restless in bed. She is alert and oriented 3 and she is calm and comfortable. No focal neurological deficits. EXTREMITIES: There is no peripheral edema, clubbing, or cyanosis. Left arm fistula with positive thrill and bruit. Peripheral pulses are intact. - Labs CBC & Chem 7: 08/04/22 04:11 08/04/22 04:11 Labs: Abnormal Lab Results - Last 24 Hours (Table) 08/03/22 08/03/22 08/03/22 Range/Units 11:57 12:16 13:53 RBC (3.80-5.40) m/uL Hgb (11.4-16.0) gm/dL Hct (34.0-46.0) % RDW (11.5-15.5) % Sodium (137-145) mmol/L Chloride (98-107) mmol/L Creatinine (0.52-1.04) mg/dL Glucose (74-99) mg/dL POC Glucose (mg/dL) 62 L 216 H 23 L (70-110) mg/dL 08/03/22 08/03/22 08/03/22 Range/Units 14:10 14:27 15:45 RBC (3.80-5.40) m/uL Hgb (11.4-16.0) gm/dL Hct (34.0-46.0) % RDW (11.5-15.5) % Sodium (137-145) mmol/L Chloride (98-107) mmol/L Creatinine (0.52-1.04) mg/dL Glucose (74-99) mg/dL POC Glucose (mg/dL) 55 L 226 H 39 L (70-110) mg/dL 08/03/22 08/03/22 08/03/22 Range/Units 16:03 20:18 22:01 RBC (3.80-5.40) m/uL Hgb (11.4-16.0) gm/dL Hct (34.0-46.0) % RDW (11.5-15.5) % Sodium (137-145) mmol/L Chloride (98-107) mmol/L Creatinine (0.52-1.04) mg/dL Glucose (74-99) mg/dL POC Glucose (mg/dL) 230 H 146 H 217 H (70-110) mg/dL 08/04/22 08/04/22 08/04/22 Range/Units 00:49 04:11 04:11 RBC 2.99 L (3.80-5.40) m/uL Hgb 8.5 L (11.4-16.0) gm/dL Hct 25.7 L (34.0-46.0) % RDW 17.3 H (11.5-15.5) % Sodium 130 L (137-145) mmol/L Chloride 92 L (98-107) mmol/L Creatinine 3.22 H (0.52-1.04) mg/dL Glucose 73 L (74-99) mg/dL POC Glucose (mg/dL) 237 H (70-110) mg/dL 08/04/22 08/04/22 08/04/22 Range/Units 05:51 05:51 06:10 RBC (3.80-5.40) m/uL Hgb (11.4-16.0) gm/dL Hct (34.0-46.0) % RDW (11.5-15.5) % Sodium (137-145) mmol/L Chloride (98-107) mmol/L Creatinine (0.52-1.04) mg/dL Glucose (74-99) mg/dL POC Glucose (mg/dL) 39 L 58 L 128 H (70-110) mg/dL Microbiology - Last 24 Hours (Table) 08/03/22 06:00 Blood Culture - Preliminary Blood No Growth after 24 hours 08/02/22 13:23 Blood Culture - Preliminary Blood No Growth after 24 hours Assessment and Plan Plan: Episodic hypoglycemia, due to brittle diabetes, higher dose of Levemir insulin and inconsistency in the oral intake, the patient was placed on D10, and subsequently discontinued. Levemir was also discontinued and the patient's blood sugars being monitored for now. Altered mentation secondary to episodic hypoglycemia, rule out metabolic encephalopathy secondary to episodes of hypoglycemia. She has other metabolic factors including end-stage renal disease. She developed delirium with agitation yesterday and the patient is currently on Precedex. She was also started on Prolixin. She required Haldol. This morning, the patient is alert and oriented 3 and Precedex has been discontinued End-stage renal disease normally receives hemodialysis Monday, Monday, Monday, last hemodialysis was yesterday with a total of 4.5 L of fluid was infiltrated Chronic anemia, hemoglobin was at 8.5 Diabetes mellitus type 1 with extremely brittle blood sugar control. Previous history of cardiac arrest related to hyperkalemia on 07/11/2022 and a previous event in January 2022. History of CVA without residual Diabetic retinopathy and the patient is legally blind Diabetic neuropathy Restless leg syndrome Depression, denies any current suicidal ideation Plan Discontinue Levemir Give the patient NovoLog 6 units with meals and a sliding scale coverage Monitor blood sugars Precedex was discontinued Continue Prolixin Continue Coreg and clonidine Hemodialysis per nephrology Keep in ICU
[2022-08-04 11:30] LABS: Glucose,Whole Blood 239 mg/dL (70-110)
[2022-08-04 16:30] LABS: Glucose,Whole Blood 102 mg/dL (70-110)
[2022-08-04] MEDS: cloNIDine HCL 0.1 MG TAB PO SCH ×2 (16:45→22:03)
[2022-08-04 18:57] LABS: Glucose,Whole Blood 315 mg/dL (70-110)
[2022-08-04 20:32] LABS: Glucose,Whole Blood 236 mg/dL (70-110)
[2022-08-04] MEDS: MELATONIN 5 MG TABLET PO SCH (22:03)
[2022-08-04] MEDS: FAMOTIDINE 20 MG TAB PO SCH (22:04)
[2022-08-04 22:09] LABS: Glucose,Whole Blood 147 mg/dL (70-110)
[2022-08-05 00:22] LABS: Glucose,Whole Blood 246 mg/dL (70-110)
[2022-08-05 06:38] LABS: Glucose,Whole Blood 524 mg/dL (70-110)
[2022-08-05 06:38] LABS: Glucose,Whole Blood 506 mg/dL (70-110)
[2022-08-05] MEDS: CALCIUM ACETATE 667 MG TAB PO SCH ×3 (06:41→17:04)
[2022-08-05] MEDS: carvediloL 12.5 MG TAB PO SCH ×2 (06:41→17:04)
[2022-08-05] MEDS: INSULIN ASPART (NovoLOG) 100 UNIT/ML VIAL SQ SCH ×7 (06:41→20:38)
[2022-08-05] MEDS: cloNIDine HCL 0.1 MG TAB PO SCH ×3 (08:36→20:39)
[2022-08-05] MEDS: CYANOCOBALAMIN 500 MCG TAB PO SCH (08:36)
[2022-08-05] MEDS: ATORVASTATIN 40 MG TAB PO SCH (08:36)
[2022-08-05] MEDS: ASPIRIN 81 MG PO SCH (08:36)
[2022-08-05] MEDS: TORSEMIDE 20 MG TAB PO SCH ×2 (08:36→21:12)
[2022-08-05] MEDS: DEXTROSE 10% IN WATER 500 ML in EMPTY BAG 1 BAG IV SCH ×2 (08:48→16:56)
[2022-08-05 09:11] LABS: Glucose,Whole Blood 260 mg/dL (70-110)
--- NOTE | 2022-08-05 09:36 | P.PN ---
Subjective Progress Note Date: 08/05/22 On today's evaluation of 08/01/2022, the patient is being seen for a follow-up. She is stable, calm and comfortable,. She is a very brittle diabetic and the patient has end-stage renal disease and the patient is currently on hemodialysis. The patient underwent hemodialysis today and the patient tolerat ed the procedure well. No chest pain. No shortness of breath. No hypotension. Blood pressure was quite elevated and nephrology is on the case. She is currently on oxygen at 4 L per minute nasal cannula. WBC count is at 6.6 with a hemoglobin of 7.9 and a platelet count of 267. Creatinine is at 4.29. Continues to have a very labile blood sugar. Sugars dropped down to 48 and the patient is currently treated and the patient has her lunch sitting at the bedside. Earlier this morning, her blood sugar was high as 416 and I see that her current insulin coverage is with Levemir 12 units along with 6 units of NovoLog with meals and a sliding scale coverage. Coreg 25 mg by mouth twice a day, and clonidine of no twice a day. The patient had a chest x-ray on 07/30/2021 that showed cardiomegaly and small right-sided pleural effusion. On today's evaluation of 08/02/2022, the patient is having another episode of hypoglycemia. The patient was given D50. The patient was placed on D5 water at the rate of 50 mL an hour. She is becoming uncooperative with the medical treatment. I told her the Levemir dose of being provided to this patient's was at a higher dose and the dose has been further lowered down to 8 units. The patient is not consistent with her oral intake. The patient has a very brittle labile blood sugar control. She still having massive lacerations. Her respiratory status is stable for now. She is receiving 6 units of NovoLog with meals plus a sliding scale coverage. She remains on same medication for now. Blood sugars being monitored on the medical floor. On 08/03/2022, the patient back to the intensive care unit. Transfer the patient yesterday as the patient was becoming progressively more delerious and her condition was not being manageable on the floor. The patient was becoming irritable, aggressive, agitated, refusing medication treatment and restless and she was skin picking. At that point, she was given a total of 10 mg of IV Haldol and she continued to be quite restless. She was brought into the intensive care unit and she is currently on Precedex which is running at 1.4 mcg/kg/m. Overall, she seems to more comfortable this morning. She is following commands. She is undergoing hemodialysis at the dialysis was started approximately 30 minutes ago. She was having issues with hypoglycemia the day yesterday. Note that she was given a higher dose of Levemir insulin which contributions of hypoglycemia. The blood sugar was as low was 33 and later on 48. Based on that, the patient was started on D5 water and currently she is ru nning high on her blood sugar. She is only on a sliding scale coverage. She is also on Levemir insulin and the current doses at 8 units. Oral intake is extremely poor and the patient does not eat consistently. No nausea. No emesis. No diarrhea. No abdominal pain. Hemodynamically, she is stable. She is moving all 4 extremities without limitation. The patient was also seen by psychiatry and she was started on Prolixin 2 mg at bedtime and 2 mg by mouth twice a day and when necessary. She is also on a combination of Coreg and Catapres for BP On today's evaluation of 08/04/2022, the patient is being seen for a follow-up. The patient remains in intensive care unit. Noted the patient had an acute delirium which ultimately improved. The patient was placed on Precedex which was weaned off and discontinued. The patient is currently on Prolixin. On today's evaluation, she is awake and alert and following commands. No agitation. Nevertheless, the patient is having issues with hypoglycemia. Mother the patient was on Levemir insulin and I ended up discontinuing the Levemir insulin as the patient's blood sugars have been persistently low. The patient was placed on D10 infusion and the most recent blood sugar is above 90. Throughout the night, the patient was having episodes of hypoglycemia. She also needed D50 IV pushes. Her oral intake is not consistent. I was told that she had a good dinner last night. She did have some emesis following her dinner. She remains on 2 L of oxygen by nasal cannula. Hemodialysis was performed yesterday and the patient total of 4 L of ultrafiltration. No agitation. Levemir insulin as been discontinued. On 08/05/2022, the patient is awake and alert. No agitation. No confusion. No neurologic manifestations. The patient is still on Prolixin. The patient is currently off Precedex and she's been off Precedex for more than 24 hours she is off the dextrose 10 infusion. She is off Levemir. Blood sugars are in the 250 range. Most recent blood sugar is around 260. She is receiving only sliding scale coverage and she is also receiving 6 units with meals of NovoLog. No labs are available from today. Today is her dialysis day for this patient. She is resting comfortably. No nausea or vomiting. Breakfast is at the bedside and she doesn't seems to be hungry this morning. I'm not sure she is going to have her breakfast. She had all of her dinner last night. Objective - Vital Signs Vital signs: Vital Signs Temp 98.7 F 08/05/22 08:00 Pulse 87 08/05/22 08:00 Resp 21 08/05/22 08:00 BP 143/70 08/05/22 08:00 Pulse Ox 97 08/05/22 08:31 FiO2 2 08/04/22 00:00 Intake & Output 08/04/22 08/05/22 08/05/22 18:59 06:59 18:59 Intake Total 600 0 0 Output Total 0 0 Balance 600 0 0 Weight 42 kg Intake: Intake, IV Titration 300 0 0 Amount Dextrose 10% in Water 500 300 0 0 ml In Empty Bag 1 bag @ 50 mls/hr IV .Q10H [facility] Rx #:[id number] Oral 300 0 0 Output: Urine 0 0 - Exam GENERAL EXAM: Alert, cachectic 31-year-old female, on 2 L nasal cannula, comfortable in no apparent distress. HEAD: Normocephalic and atraumatic EYES: Normal reaction of pupils, equal size. NOSE: Clear with pink turbinates. THROAT: No erythema or exudates. NECK: No masses, no JVD. CHEST: No chest wall deformity. LUNGS: Equal air entry with no crackles, wheeze, rhonchi or dullness. CVS: S1 and S2 normal with no audible murmur, regular rhythm. No extra heart sounds ABDOMEN: No hepatosplenomegaly, active bowel sounds, no guarding or rigidity. SPINE: No scoliosis or deformity SKIN: No rashes CENTRAL NERVOUS SYSTEM: No focal deficits, tone is normal in all 4 extremities. The patient is communicating. Following commands. She is restless in bed. She is alert and oriented 3 and she is calm and comfortable. No focal neurological deficits. EXTREMITIES: There is no peripheral edema, clubbing, or cyanosis. Left arm fistula with positive thrill and bruit. Peripheral pulses are intact. - Labs CBC & Chem 7: 08/04/22 04:11 08/04/22 04:11 Labs: Abnormal Lab Results - Last 24 Hours (Table) 08/04/22 08/04/22 08/04/22 Range/Units 11:28 18:56 20:30 POC Glucose (mg/dL) 239 H 315 H 236 H (70-110) mg/dL 08/04/22 08/05/22 08/05/22 Range/Units 22:07 00:21 06:36 POC Glucose (mg/dL) 147 H 246 H 524 H (70-110) mg/dL 08/05/22 08/05/22 Range/Units 06:37 09:09 POC Glucose (mg/dL) 506 H 260 H (70-110) mg/dL Microbiology - Last 24 Hours (Table) 08/03/22 06:00 Blood Culture - Preliminary Blood No Growth after 48 hours 08/02/22 13:23 Blood Culture - Preliminary Blood No Growth after 48 hours Assessment and Plan Plan: Episodic hypoglycemia, due to brittle diabetes, higher dose of Levemir insulin and inconsistency in the oral intake, the patient was placed on D10, and subsequently discontinued. Levemir was also discontinued and the patient's blood sugars being monitored for now. The patient has not had any further episodes of hypoglycemia over the past 24 hours. Sugars are ranging between 203 100 for now. The current regimen is NovoLog 6 units with meals plus a slight scale coverage as needed. Altered mentation secondary to episodic hypoglycemia, rule out metabolic encephalopathy secondary to episodes of hypoglycemia. She has other metabolic factors including end-stage renal disease. Patient is calm and comfortable currently off Precedex currently on Prolixin End-stage renal disease normally receives hemodialysis Monday, Monday, Monday, last hemodialysis was on 08/03/2022 and today's dialysis today Chronic anemia, hemoglobin was at 8.5 Diabetes mellitus type 1 with extremely brittle blood sugar control. Previous history of cardiac arrest related to hyperkalemia on 07/11/2022 and a previous event in January 2022. History of CVA without residual Diabetic retinopathy and the patient is legally blind Diabetic neuropathy Restless leg syndrome Depression, denies any current suicidal ideation Plan Give the patient NovoLog 6 units with meals and a sliding scale coverage Monitor blood sugars Precedex was discontinued Continue Prolixin Continue Coreg and clonidine Hemodialysis per nephrology Transfer this patient out of the intensive care unit today
--- NOTE | 2022-08-05 09:50 | P.PN ---
Subjective Patient is seen in follow-up for end-stage renal disease. Mentation better today. Resting in bed. Scheduled for dialysis today. Hemodynamically stable. Vital signs are stable. General: No acute distress. HEENT: Head exam is unremarkable. LUNGS: No audible rhonchi or wheezes. HEART: Rate and Rhythm are regular. ABDOMEN: No distention. EXTREMITITES: No edema. Objective - Vital Signs Vital signs: Vital Signs Temp 98.7 F 08/05/22 08:00 Pulse 84 08/05/22 09:00 Resp 17 08/05/22 09:00 BP 147/68 08/05/22 09:00 Pulse Ox 100 08/05/22 09:00 FiO2 2 08/04/22 00:00 Intake & Output 08/04/22 08/05/22 08/05/22 18:59 06:59 18:59 Intake Total 600 0 0 Output Total 0 0 Balance 600 0 0 Weight 42 kg Intake: Intake, IV Titration 300 0 0 Amount Dextrose 10% in Water 500 300 0 0 ml In Empty Bag 1 bag @ 50 mls/hr IV .[facility]H [facility] Rx #:[id number] Oral 300 0 0 Output: Urine 0 0 - Labs CBC & Chem 7: 08/04/22 04:11 08/04/22 04:11 Labs: Abnormal Lab Results - Last 24 Hours (Table) 08/04/22 08/04/22 08/04/22 Range/Units 11:28 18:56 20:30 POC Glucose (mg/dL) 239 H 315 H 236 H (70-110) mg/dL 08/04/22 08/05/22 08/05/22 Range/Units 22:07 00:21 06:36 POC Glucose (mg/dL) 147 H 246 H 524 H (70-110) mg/dL 08/05/22 08/05/22 Range/Units 06:37 09:09 POC Glucose (mg/dL) 506 H 260 H (70-110) mg/dL Microbiology - Last 24 Hours (Table) 08/03/22 06:00 Blood Culture - Preliminary Blood No Growth after 48 hours 08/02/22 13:23 Blood Culture - Preliminary Blood No Growth after 48 hours Assessment and Plan Plan: Assessment: 1. End-stage renal disease maintained on hemodialysis on Monday schedule. 2. Acute blood loss anemia status post blood transfusion. No active bleeding. Status post IV DDAVP. On Aranesp. 3. 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 4. Hypertension with chronic kidney disease. 5. Brittle diabetes. 6. Delirium. Psychiatry following. 7. Hyponatremia secondary to chronic kidney disease. Hypervolemic. Plan: Hemodialysis today. Maintain current antihypertensives with parameters.
[2022-08-05 11:25] LABS: Glucose,Whole Blood 139 mg/dL (70-110)
--- NOTE | 2022-08-05 15:11 | P.PN ---
Progress Note - Text Progress Note Date: 08/05/22 Interval History: Patient was seen today for psychiatric follow-up. Patient was laying in bed to day and was receiving hemodialysis. She appeared to be more awake today and cooperative and directable with data analyst report writer during conversation. She claims that her mood and anxiety are "okay" and she continues to be somewhat constricted. She states that she has been taking her medications and not reporting any complaints. States that she is sleeping at nighttime. She was alert and oriented 3 today, improvement in concentration span and also cooperativeness. improving judgment. patient is denying any Si or Hi and denying any Ah or VH at this time. Mental Status Exam: General Appearance: Patient appears to be thin, short hair, stated age is less lethargic, following commands. Patient appears to have fair hygiene and grooming wearing hospital gown with poor eye contact. Behavior: Patient is lying in bed, irritable not uncooperative. poor attention span, improving mildly Speech: Patient's speech is fluent and nonpressured. minimal Mood/Affect: Patient reports their mood is "ok", affect is congruent and less constricted Suicidality/Homicidality: Patient denies having any suicidal or homicidal ideation intent or plan. Perceptions: Patient denies any visual hallucinations and denies any auditory hallucinations Though content/process: There is no evidence of any delusional thought content. concrete. no paranoia. less irritable Memory and concentration: AOX3, improving concentrartion and memory recall. Judgment and insight: improving mildly IMPRESSIONS: Delirium, unknown etiology history of depression and anxiety Anxiety disorder unspecified PLAN: -At this time patient DOES NOT meet criteria for inpatient psychiatric admission. -Would recommend the following medication changes/additions: will restart some of patients meds including wellbutrin xl 150 mg daily and remeron 7.5 mg qhs for insomnia/mood. continue melatonin 10 mg qhs for sleep. decrease prolixin 1 mg bid scheduled with PO and IM as prns for agitation. -continue treating underlying medical comorbidities. -Communicated plan to patient's nurse -psychiatry will continue to follow along if needed -Please contact with any questions.
[2022-08-05 16:57] LABS: Glucose,Whole Blood 120 mg/dL (70-110)
[2022-08-05 20:36] LABS: Glucose,Whole Blood 92 mg/dL (70-110)
[2022-08-05] MEDS: FAMOTIDINE 20 MG TAB PO SCH (20:38)
[2022-08-05] MEDS: MELATONIN 5 MG TABLET PO SCH (20:39)
[2022-08-05] MEDS: MIRTAZAPINE 15 MG TAB PO SCH (20:39)
[2022-08-06 02:03] LABS: Glucose,Whole Blood 563 mg/dL (70-110)
[2022-08-06] MEDS: INSULIN ASPART (NovoLOG) 100 UNIT/ML VIAL SQ SCH ×7 (03:01→20:47)
[2022-08-06 04:14] LABS: Calcium 8.7 mg/dL (8.4-10.2)
[2022-08-06 04:40] LABS: Potassium 6.6 mmol/L (3.5-5.1)
[2022-08-06] MEDS ORDERED: INSULIN REGULAR 100 UNIT/ML VIAL (IV) IV ONE (05:25)
[2022-08-06] MEDS: DEXTROSE 10% IN WATER 500 ML in EMPTY BAG 1 BAG IV SCH ×2 (05:36→13:41)
[2022-08-06 06:12] LABS: Glucose,Whole Blood 345 mg/dL (70-110)
--- NOTE | 2022-08-06 07:49 | PN ---
PROGRESS NOTE DATE OF SERVICE: 08/05/2022 CHIEF COMPLAINT: Hypotension, uncontrolled; diabetes, uncontrolled; hypertension; stage 5 CKD; and delirium. HISTORY OF PRESENT ILLNESS: This lady is doing better. She is awake and alert, and denies hallucinations. Other than that, she is doing fairly well. Vital signs are quite good today and blood sugars have been in a better range. PHYSICAL EXAMINATION: GENERAL: She remains pale with dry skin. She is awake and alert. CHEST: Clear. CARDIAC: Normal. ABDOMEN: Soft, nontender. IMPRESSION: 1. Delirium with hallucinations, resolved. 2. Uncontrolled hypertension. 3. Hypotension. 4. Uncontrolled type 1 insulin-dependent diabetes mellitus. 5. Stage 5 chronic kidney disease. 6. Diabetic retinopathy with blindness. PLAN: Continue with her dialysis, management of her diabetes and hypertension and possibly discharge soon. MMODL / IJN: [id number] /
[2022-08-06] MEDS: carvediloL 12.5 MG TAB PO SCH ×2 (08:43→17:06)
[2022-08-06] MEDS: TORSEMIDE 20 MG TAB PO SCH ×2 (08:43→20:46)
[2022-08-06] MEDS: ASPIRIN 81 MG PO SCH (08:43)
[2022-08-06] MEDS: CYANOCOBALAMIN 500 MCG TAB PO SCH (08:44)
[2022-08-06] MEDS: CALCIUM ACETATE 667 MG TAB PO SCH ×5 (08:44→17:06)
[2022-08-06] MEDS: ATORVASTATIN 40 MG TAB PO SCH (08:44)
[2022-08-06] MEDS: cloNIDine HCL 0.1 MG TAB PO SCH ×3 (08:44→20:45)
[2022-08-06 08:54] LABS: Glucose,Whole Blood 181 mg/dL (70-110)
--- NOTE | 2022-08-06 09:41 | P.PN ---
Subjective Progress Note Date: 08/06/22 On today's evaluation of 08/01/2022, the patient is being seen for a follow-up. She is stable, calm and comfortable,. She is a very brittle diabetic and the patient has end-stage renal disease and the patient is currently on hemodialysis. The patient underwent hemodialysis today and the patient tolerat ed the procedure well. No chest pain. No shortness of breath. No hypotension. Blood pressure was quite elevated and nephrology is on the case. She is currently on oxygen at 4 L per minute nasal cannula. WBC count is at 6.6 with a hemoglobin of 7.9 and a platelet count of 267. Creatinine is at 4.29. Continues to have a very labile blood sugar. Sugars dropped down to 48 and the patient is currently treated and the patient has her lunch sitting at the bedside. Earlier this morning, her blood sugar was high as 416 and I see that her current insulin coverage is with Levemir 12 units along with 6 units of NovoLog with meals and a sliding scale coverage. Coreg 25 mg by mouth twice a day, and clonidine of no twice a day. The patient had a chest x-ray on 07/30/2021 that showed cardiomegaly and small right-sided pleural effusion. On today's evaluation of 08/02/2022, the patient is having another episode of hypoglycemia. The patient was given D50. The patient was placed on D5 water at the rate of 50 mL an hour. She is becoming uncooperative with the medical treatment. I told her the Levemir dose of being provided to this patient's was at a higher dose and the dose has been further lowered down to 8 units. The patient is not consistent with her oral intake. The patient has a very brittle labile blood sugar control. She still having massive lacerations. Her respiratory status is stable for now. She is receiving 6 units of NovoLog with meals plus a sliding scale coverage. She remains on same medication for now. Blood sugars being monitored on the medical floor. On 08/03/2022, the patient back to the intensive care unit. Transfer the patient yesterday as the patient was becoming progressively more delerious and her condition was not being manageable on the floor. The patient was becoming irritable, aggressive, agitated, refusing medication treatment and restless and she was skin picking. At that point, she was given a total of 10 mg of IV Haldol and she continued to be quite restless. She was brought into the intensive care unit and she is currently on Precedex which is running at 1.4 mcg/kg/m. Overall, she seems to more comfortable this morning. She is following commands. She is undergoing hemodialysis at the dialysis was started approximately 30 minutes ago. She was having issues with hypoglycemia the day yesterday. Note that she was given a higher dose of Levemir insulin which contributions of hypoglycemia. The blood sugar was as low was 33 and later on 48. Based on that, the patient was started on D5 water and currently she is ru nning high on her blood sugar. She is only on a sliding scale coverage. She is also on Levemir insulin and the current doses at 8 units. Oral intake is extremely poor and the patient does not eat consistently. No nausea. No emesis. No diarrhea. No abdominal pain. Hemodynamically, she is stable. She is moving all 4 extremities without limitation. The patient was also seen by psychiatry and she was started on Prolixin 2 mg at bedtime and 2 mg by mouth twice a day and when necessary. She is also on a combination of Coreg and Catapres for BP On today's evaluation of 08/04/2022, the patient is being seen for a follow-up. The patient remains in intensive care unit. Noted the patient had an acute delirium which ultimately improved. The patient was placed on Precedex which was weaned off and discontinued. The patient is currently on Prolixin. On today's evaluation, she is awake and alert and following commands. No agitation. Nevertheless, the patient is having issues with hypoglycemia. Mother the patient was on Levemir insulin and I ended up discontinuing the Levemir insulin as the patient's blood sugars have been persistently low. The patient was placed on D10 infusion and the most recent blood sugar is above 90. Throughout the night, the patient was having episodes of hypoglycemia. She also needed D50 IV pushes. Her oral intake is not consistent. I was told that she had a good dinner last night. She did have some emesis following her dinner. She remains on 2 L of oxygen by nasal cannula. Hemodialysis was performed yesterday and the patient total of 4 L of ultrafiltration. No agitation. Levemir insulin as been discontinued. On 08/05/2022, the patient is awake and alert. No agitation. No confusion. No neurologic manifestations. The patient is still on Prolixin. The patient is currently off Precedex and she's been off Precedex for more than 24 hours she is off the dextrose 10 infusion. She is off Levemir. Blood sugars are in the 250 range. Most recent blood sugar is around 260. She is receiving only sliding scale coverage and she is also receiving 6 units with meals of NovoLog. No labs are available from today. Today is her dialysis day for this patient. She is resting comfortably. No nausea or vomiting. Breakfast is at the bedside and she doesn't seems to be hungry this morning. I'm not sure she is going to have her breakfast. She had all of her dinner last night. On today's evaluation of 08/06/2022, she has no complaints and she is doing well, awake and alert. Blood sugar this morning came up to 600 and she was g iven insulin coverage. She was asymptomatic along with that. No episodes of hypoglycemia. He was seen by psychiatry regarding her delirium. He was recommended to start the patient Wellbutrin XL 150 mg daily and about 7.5 mg at bedtime and melatonin 10 mg for sleep. The Prolixin was reduced down to 1 mg twice a day scheduled. The patient underwent hemodialysis yesterday. Potassium levels improved. Most recent blood sugars at 181. Objective - Vital Signs Vital signs: Vital Signs Temp 98.7 F 08/06/22 08:41 Pulse 82 08/06/22 08:41 Resp 16 08/06/22 08:41 BP 136/75 08/06/22 08:41 Pulse Ox 100 08/06/22 08:41 FiO2 2 08/04/22 00:00 Intake & Output 08/05/22 08/06/22 08/06/22 18:59 06:59 18:59 Intake Total 1288 Output Total 5000 0 Balance -3712 0 Weight 42 kg 47 kg Intake: Intake, IV Titration 0 Amount Dextrose 10% in Water 500 0 ml In Empty Bag 1 bag @ 50 mls/hr IV .Q10H [facility] Rx #:[id number] Oral 988 Hemodialysis 300 Output: Urine 0 0 Hemodialysis 5000 Other: # Voids 0 # Bowel Movements 0 - Exam GENERAL EXAM: Alert, cachectic 31-year-old female, on 2 L nasal cannula, comfortable in no apparent distress. HEAD: Normocephalic and atraumatic EYES: Normal reaction of pupils, equal size. NOSE: Clear with pink turbinates. THROAT: No erythema or exudates. NECK: No masses, no JVD. CHEST: No chest wall deformity. LUNGS: Equal air entry with no crackles, wheeze, rhonchi or dullness. CVS: S1 and S2 normal with no audible murmur, regular rhythm. No extra heart sounds ABDOMEN: No hepatosplenomegaly, active bowel sounds, no guarding or rigidity. SPINE: No scoliosis or deformity SKIN: No rashes CENTRAL NERVOUS SYSTEM: No focal deficits, tone is normal in all 4 extremities. The patient is communicating. Following commands. She is restless in bed. She is alert and oriented 3 and she is calm and comfortable. No focal neurological deficits. EXTREMITIES: There is no peripheral edema, clubbing, or cyanosis. Left arm fistula with positive thrill and bruit. Peripheral pulses are intact. - Labs CBC & Chem 7: 08/04/22 04:11 08/06/22 06:53 Labs: Abnormal Lab Results - Last 24 Hours (Table) 08/05/22 08/05/22 08/06/22 Range/Units 11:24 16:54 02:00 Sodium (137-145) mmol/L Potassium (3.5-5.1) mmol/L Chloride (98-107) mmol/L BUN (7-17) mg/dL Creatinine (0.52-1.04) mg/dL Glucose (74-99) mg/dL POC Glucose (mg/dL) 139 H 120 H 563 H (70-110) mg/dL 08/06/22 08/06/22 08/06/22 Range/Units 02:19 03:55 06:10 Sodium 134 L (137-145) mmol/L Potassium 6.6 H* (3.5-5.1) mmol/L Chloride 93 L (98-107) mmol/L BUN 34 H (7-17) mg/dL Creatinine 4.85 H (0.52-1.04) mg/dL Glucose 625 H* 620 H* (74-99) mg/dL POC Glucose (mg/dL) 345 H (70-110) mg/dL 08/06/22 Range/Units 08:53 Sodium (137-145) mmol/L Potassium (3.5-5.1) mmol/L Chloride (98-107) mmol/L BUN (7-17) mg/dL Creatinine (0.52-1.04) mg/dL Glucose (74-99) mg/dL POC Glucose (mg/dL) 181 H (70-110) mg/dL Microbiology - Last 24 Hours (Table) 08/03/22 06:00 Blood Culture - Preliminary Blood No Growth after 72 hours 08/02/22 13:23 Blood Culture - Preliminary Blood No Growth after 72 hours Assessment and Plan Plan: Episodic hypoglycemia, due to brittle diabetes, higher dose of Levemir insulin and inconsistency in the oral intake, the patient was placed on D10, and subsequently discontinued. Levemir was also discontinued and the patient's blood sugars being monitored for now. The patient has not had any further episodes of hypoglycemia over the past 24 hours. Altered mentation secondary to episodic hypoglycemia/psychosis, rule out metabolic encephalopathy secondary to episodes of hypoglycemia. She has other metabolic factors including end-stage renal disease. Patient is calm and comfortable currently on a combination of Wellbutrin, Remeron and Prolixin. End-stage renal disease normally receives hemodialysis Monday, Monday, Monday, last hemodialysis was on 08/03/2022 and hemodialysis done yesterday and a potassium level is normal Chronic anemia, hemoglobin was at 8.5 Diabetes mellitus type 1 with extremely brittle blood sugar control. Previous history of cardiac arrest related to hyperkalemia on 07/11/2022 and a previous event in January 2022. History of CVA without residual Diabetic retinopathy and the patient is legally blind Diabetic neuropathy Restless leg syndrome Depression, denies any current suicidal ideation Plan Give the patient NovoLog 6 units with meals and a sliding scale coverage Monitor blood sugars Continue Wellbutrin, Remeron and Prolixin as recommended by psychiatry Increase mobility Continue Coreg and clonidine Hemodialysis per nephrology, last dialysis was done yesterday
[2022-08-06] MEDS: buPROPion XL 150 MG TAB.ER.24H PO SCH (10:07)
--- NOTE | 2022-08-06 11:20 | P.PN ---
Subjective Progress Note Date: 08/06/22 Principal diagnosis: This is a 31-year-old female with endstage renal failure on dialysis Monday. She was admitted on 07/27/2022 with GI blood loss and was transfused. In the interim she became agitated and hallucination was transferred to ICU. Neurology saw her diagnoses her with delirium of unknown etiology. This morning her potassium 6.6 but her blood sugar is 620. She was given insulin sliding scale 6 units. Blood sugars consequently is 181 at 8:53 AM this morning. Repeat potassium is pending, she was dialyzed yesterday. This morning she is awake alert oriented comfortable denies any complaints. Objective - Vital Signs Vital signs: Vital Signs Temp 98.7 F 08/06/22 08:41 Pulse 82 08/06/22 08:41 Resp 16 08/06/22 08:41 BP 136/75 08/06/22 08:41 Pulse Ox 100 08/06/22 08:41 FiO2 2 08/04/22 00:00 Intake & Output 08/05/22 08/06/22 08/06/22 18:59 06:59 18:59 Intake Total 1288 448 Output Total 5000 0 Balance -3712 0 448 Weight 42 kg 47 kg Intake: Intake, IV Titration 0 Amount Dextrose 10% in Water 500 0 ml In Empty Bag 1 bag @ 50 mls/hr IV .Q10H [facility] Rx #:[id number] Oral 988 448 Hemodialysis 300 Output: Urine 0 0 Hemodialysis 5000 Other: # Voids 0 # Bowel Movements 0 Exam general awake alert oriented comfortable HEENT exam no JVP neck is supple no facial asymmetry Lungs clear to auscultation good air entry bilaterally Heart sounds unremarkable Nontender nondistended Extremity examination was no edema Neurologically awake alert oriented comfortable. Does not seem agitated at this time - Labs CBC & Chem 7: 08/04/22 04:11 08/06/22 06:53 Labs: Abnormal Lab Results - Last 24 Hours (Table) 08/05/22 08/05/22 08/06/22 Range/Units 11:24 16:54 02:00 Sodium (137-145) mmol/L Potassium (3.5-5.1) mmol/L Chloride (98-107) mmol/L BUN (7-17) mg/dL Creatinine (0.52-1.04) mg/dL Glucose (74-99) mg/dL POC Glucose (mg/dL) 139 H 120 H 563 H (70-110) mg/dL 08/06/22 08/06/22 08/06/22 Range/Units 02:19 03:55 06:10 Sodium 134 L (137-145) mmol/L Potassium 6.6 H* (3.5-5.1) mmol/L Chloride 93 L (98-107) mmol/L BUN 34 H (7-17) mg/dL Creatinine 4.85 H (0.52-1.04) mg/dL Glucose 625 H* 620 H* (74-99) mg/dL POC Glucose (mg/dL) 345 H (70-110) mg/dL 08/06/22 Range/Units 08:53 Sodium (137-145) mmol/L Potassium (3.5-5.1) mmol/L Chloride (98-107) mmol/L BUN (7-17) mg/dL Creatinine (0.52-1.04) mg/dL Glucose (74-99) mg/dL POC Glucose (mg/dL) 181 H (70-110) mg/dL Microbiology - Last 24 Hours (Table) 08/03/22 06:00 Blood Culture - Preliminary Blood No Growth after 72 hours 08/02/22 13:23 Blood Culture - Preliminary Blood No Growth after 72 hours Assessment and Plan Assessment: Impression 1. ESRD on dialysis Monday diabetic nephropathy. 2. Admitted with gastroenteritis and nausea vomiting diarrhea and hypotension. 3. Delirium resolved cause not very clear 4. Uncontrolled diabetes blood sugar 620, Causing hyperkalemia. 5. Potassium 6.6 secondary to high blood sugar, repeat potassium is 4.9 at 6.53 this morning. 6. Hemoglobin is 8.5 on 08/04/2022. Recommendation 1. Repeat labs tomorrow 2. Strict blood sugar control 3. Recently discharge from a nephrological perspective
[2022-08-06 11:48] LABS: Glucose,Whole Blood 91 mg/dL (70-110)
[2022-08-06 16:39] LABS: Glucose,Whole Blood 177 mg/dL (70-110)
[2022-08-06] MEDS: DEXMEDETOMIDINE/0.9% NACL(PMX) 400 MCG in EMPTY BAG 1 BAG IV SCH (17:01)
[2022-08-06 20:16] LABS: Glucose,Whole Blood 151 mg/dL (70-110)
[2022-08-06] MEDS: MIRTAZAPINE 15 MG TAB PO SCH (20:46)
[2022-08-06] MEDS: MELATONIN 5 MG TABLET PO SCH (20:46)
[2022-08-06] MEDS: FAMOTIDINE 20 MG TAB PO SCH (20:46)
--- NOTE | 2022-08-06 21:58 | PN ---
PROGRESS NOTE DATE OF SERVICE: 08/06/2022 CHIEF COMPLAINT: Renal failure, hypertension, and uncontrolled diabetes. HISTORY OF PRESENT ILLNESS: This lady is doing little bit better. She is not complaining of the hallucinations any longer. Blood pressure and blood sugars are fluctuating somewhat, but have actually been relatively good. PHYSICAL EXAMINATION: CHEST: Clear. CARDIAC: Normal. ABDOMEN: Soft, nontender. IMPRESSION: 1. Hypotension. 2. History of erratic hypertension. 3. Poorly-controlled type 1 insulin-dependent diabetes mellitus. 4. Diabetic retinopathy and blindness. 5. Stage 5 chronic kidney disease. PLAN: No change in program and she may be able to go home tomorrow if she remains stable. MMODL / IJN: [id number] /
--- NOTE | 2022-08-06 23:31 | PN ---
PROGRESS NOTE DATE OF SERVICE: 08/04/2022 In 262. CHIEF COMPLAINT: Uncontrolled blood pressure with hypotension, diabetic retinopathy, renal failure, and uncontrolled type 1 diabetes. HISTORY OF PRESENT ILLNESS: This lady is doing well, and hallucinations and delirium have stopped. At the present time, she has no complaints. PHYSICAL EXAMINATION: VITAL SIGNS: Blood pressure at the present time is well controlled. CHEST: Clear. CARDIAC: Normal. ABDOMEN: Soft, nontender. IMPRESSION: 1. Delirium with hallucinations - resolved. 2. Renal failure. 3. Hypertension. 4. Diabetes. PLAN: She will possibly be moved out of the unit today. MMODL / IJN: [id number] /
[2022-08-07 01:54] LABS: Glucose,Whole Blood 402 mg/dL (70-110)
[2022-08-07] MEDS: DEXTROSE 10% IN WATER 500 ML in EMPTY BAG 1 BAG IV SCH ×2 (03:47→08:23)
[2022-08-07 06:19] LABS: Glucose,Whole Blood >600 mg/dL (70-110)
[2022-08-07] MEDS: INSULIN ASPART (NovoLOG) 100 UNIT/ML VIAL SQ SCH ×6 (06:34→18:01)
[2022-08-07] MEDS: CALCIUM ACETATE 667 MG TAB PO SCH ×3 (06:35→18:01)
[2022-08-07] MEDS: carvediloL 12.5 MG TAB PO SCH ×2 (06:36→18:01)
[2022-08-07 07:00] LABS: Calcium 9.1 mg/dL (8.4-10.2)
[2022-08-07 07:12] LABS: Potassium 7.1 mmol/L (3.5-5.1)
[2022-08-07 07:29] LABS: Glucose,Whole Blood >600 mg/dL (70-110)
[2022-08-07] MEDS ORDERED: INSULIN REGULAR 100 UNIT/ML VIAL (IV) IV ONE (08:00)
[2022-08-07] MEDS: buPROPion XL 150 MG TAB.ER.24H PO SCH (08:30)
[2022-08-07] MEDS: CYANOCOBALAMIN 500 MCG TAB PO SCH (08:30)
[2022-08-07] MEDS: TORSEMIDE 20 MG TAB PO SCH ×2 (08:30→21:34)
[2022-08-07] MEDS: ATORVASTATIN 40 MG TAB PO SCH (08:30)
[2022-08-07] MEDS: cloNIDine HCL 0.1 MG TAB PO SCH ×3 (08:30→21:34)
[2022-08-07] MEDS: ASPIRIN 81 MG PO SCH (08:30)
[2022-08-07 09:09] LABS: Potassium 5.3 mmol/L (3.5-5.1)
--- NOTE | 2022-08-07 10:49 | P.PN ---
Subjective Progress Note Date: 08/07/22 On today's evaluation of 08/01/2022, the patient is being seen for a follow-up. She is stable, calm and comfortable,. She is a very brittle diabetic and the patient has end-stage renal disease and the patient is currently on hemodialysis. The patient underwent hemodialysis today and the patient tolerat ed the procedure well. No chest pain. No shortness of breath. No hypotension. Blood pressure was quite elevated and nephrology is on the case. She is currently on oxygen at 4 L per minute nasal cannula. WBC count is at 6.6 with a hemoglobin of 7.9 and a platelet count of 267. Creatinine is at 4.29. Continues to have a very labile blood sugar. Sugars dropped down to 48 and the patient is currently treated and the patient has her lunch sitting at the bedside. Earlier this morning, her blood sugar was high as 416 and I see that her current insulin coverage is with Levemir 12 units along with 6 units of NovoLog with meals and a sliding scale coverage. Coreg 25 mg by mouth twice a day, and clonidine of no twice a day. The patient had a chest x-ray on 07/30/2021 that showed cardiomegaly and small right-sided pleural effusion. On today's evaluation of 08/02/2022, the patient is having another episode of hypoglycemia. The patient was given D50. The patient was placed on D5 water at the rate of 50 mL an hour. She is becoming uncooperative with the medical treatment. I told her the Levemir dose of being provided to this patient's was at a higher dose and the dose has been further lowered down to 8 units. The patient is not consistent with her oral intake. The patient has a very brittle labile blood sugar control. She still having massive lacerations. Her respiratory status is stable for now. She is receiving 6 units of NovoLog with meals plus a sliding scale coverage. She remains on same medication for now. Blood sugars being monitored on the medical floor. On 08/03/2022, the patient back to the intensive care unit. Transfer the patient yesterday as the patient was becoming progressively more delerious and her condition was not being manageable on the floor. The patient was becoming irritable, aggressive, agitated, refusing medication treatment and restless and she was skin picking. At that point, she was given a total of 10 mg of IV Haldol and she continued to be quite restless. She was brought into the intensive care unit and she is currently on Precedex which is running at 1.4 mcg/kg/m. Overall, she seems to more comfortable this morning. She is following commands. She is undergoing hemodialysis at the dialysis was started approximately 30 minutes ago. She was having issues with hypoglycemia the day yesterday. Note that she was given a higher dose of Levemir insulin which contributions of hypoglycemia. The blood sugar was as low was 33 and later on 48. Based on that, the patient was started on D5 water and currently she is ru nning high on her blood sugar. She is only on a sliding scale coverage. She is also on Levemir insulin and the current doses at 8 units. Oral intake is extremely poor and the patient does not eat consistently. No nausea. No emesis. No diarrhea. No abdominal pain. Hemodynamically, she is stable. She is moving all 4 extremities without limitation. The patient was also seen by psychiatry and she was started on Prolixin 2 mg at bedtime and 2 mg by mouth twice a day and when necessary. She is also on a combination of Coreg and Catapres for BP On today's evaluation of 08/04/2022, the patient is being seen for a follow-up. The patient remains in intensive care unit. Noted the patient had an acute delirium which ultimately improved. The patient was placed on Precedex which was weaned off and discontinued. The patient is currently on Prolixin. On today's evaluation, she is awake and alert and following commands. No agitation. Nevertheless, the patient is having issues with hypoglycemia. Mother the patient was on Levemir insulin and I ended up discontinuing the Levemir insulin as the patient's blood sugars have been persistently low. The patient was placed on D10 infusion and the most recent blood sugar is above 90. Throughout the night, the patient was having episodes of hypoglycemia. She also needed D50 IV pushes. Her oral intake is not consistent. I was told that she had a good dinner last night. She did have some emesis following her dinner. She remains on 2 L of oxygen by nasal cannula. Hemodialysis was performed yesterday and the patient total of 4 L of ultrafiltration. No agitation. Levemir insulin as been discontinued. On 08/05/2022, the patient is awake and alert. No agitation. No confusion. No neurologic manifestations. The patient is still on Prolixin. The patient is currently off Precedex and she's been off Precedex for more than 24 hours she is off the dextrose 10 infusion. She is off Levemir. Blood sugars are in the 250 range. Most recent blood sugar is around 260. She is receiving only sliding scale coverage and she is also receiving 6 units with meals of NovoLog. No labs are available from today. Today is her dialysis day for this patient. She is resting comfortably. No nausea or vomiting. Breakfast is at the bedside and she doesn't seems to be hungry this morning. I'm not sure she is going to have her breakfast. She had all of her dinner last night. On today's evaluation of 08/06/2022, she has no complaints and she is doing well, awake and alert. Blood sugar this morning came up to 600 and she was g iven insulin coverage. She was asymptomatic along with that. No episodes of hypoglycemia. He was seen by psychiatry regarding her delirium. He was recommended to start the patient Wellbutrin XL 150 mg daily and about 7.5 mg at bedtime and melatonin 10 mg for sleep. The Prolixin was reduced down to 1 mg twice a day scheduled. The patient underwent hemodialysis yesterday. Potassium levels improved. Most recent blood sugars at 181. On 08/07/2022, the patient continues to have issues with hyperglycemia. Blood sugar this morning was 732. She was given insulin IV 6 units and a subsequent blood sugar came at 575. During this time, the potassium will also 5.3. Neurologically, she is intact and stable. Melanocytic is stable. She is on oxygen at 2 L nasal cannula. She is not consistent with her oral intake. I was told that she ate all meals yesterday, did not have breakfast this morning. Objective - Vital Signs Vital signs: Vital Signs Temp 98.7 F 08/07/22 08:25 Pulse 83 08/07/22 08:25 Resp 16 08/07/22 08:25 BP 123/60 08/07/22 08:25 Pulse Ox 98 08/07/22 08:25 FiO2 2 08/04/22 00:00 Intake & Output 08/06/22 08/07/22 08/07/22 17:59 06:59 18:59 Intake Total 10 Balance 10 Weight Intake: IV 10 Invasive Line 5 10 Oral Other: # Voids # Bowel Movements - Exam GENERAL EXAM: Alert, cachectic 31-year-old female, on 2 L nasal cannula, comfortable in no apparent distress. HEAD: Normocephalic and atraumatic EYES: Normal reaction of pupils, equal size. NOSE: Clear with pink turbinates. THROAT: No erythema or exudates. NECK: No masses, no JVD. CHEST: No chest wall deformity. LUNGS: Equal air entry with no crackles, wheeze, rhonchi or dullness. CVS: S1 and S2 normal with no audible murmur, regular rhythm. No extra heart sounds ABDOMEN: No hepatosplenomegaly, active bowel sounds, no guarding or rigidity. SPINE: No scoliosis or deformity SKIN: No rashes CENTRAL NERVOUS SYSTEM: No focal deficits, tone is normal in all 4 extremities. The patient is communicating. Following commands. She is restless in bed. She is alert and oriented 3 and she is calm and comfortable. No focal neurological deficits. EXTREMITIES: There is no peripheral edema, clubbing, or cyanosis. Left arm fistula with positive thrill and bruit. Peripheral pulses are intact. - Labs CBC & Chem 7: 08/04/22 04:11 08/07/22 08:41 Labs: Abnormal Lab Results - Last 24 Hours (Table) 08/06/22 08/06/22 08/07/22 Range/Units 16:37 20:15 01:52 Sodium (137-145) mmol/L Potassium (3.5-5.1) mmol/L Chloride (98-107) mmol/L Carbon Dioxide (22-30) mmol/L BUN (7-17) mg/dL Creatinine (0.52-1.04) mg/dL Glucose (74-99) mg/dL POC Glucose (mg/dL) 177 H 151 H 402 H (70-110) mg/dL 08/07/22 08/07/22 08/07/22 Range/Units 06:17 06:38 07:24 Sodium 130 L (137-145) mmol/L Potassium 7.1 H* (3.5-5.1) mmol/L Chloride 92 L (98-107) mmol/L Carbon Dioxide 17 L (22-30) mmol/L BUN 69 H (7-17) mg/dL Creatinine 8.35 H* (0.52-1.04) mg/dL Glucose 732 H* (74-99) mg/dL POC Glucose (mg/dL) >600 H >600 H (70-110) mg/dL 08/07/22 Range/Units 08:41 Sodium (137-145) mmol/L Potassium 5.3 H (3.5-5.1) mmol/L Chloride (98-107) mmol/L Carbon Dioxide (22-30) mmol/L BUN (7-17) mg/dL Creatinine (0.52-1.04) mg/dL Glucose 575 H* (74-99) mg/dL POC Glucose (mg/dL) (70-110) mg/dL Microbiology - Last 24 Hours (Table) 08/03/22 06:00 Blood Culture - Preliminary Blood No Growth after 96 hours 08/02/22 13:23 Blood Culture - Preliminary Blood No Growth after 96 hours Assessment and Plan Plan: Episodic hypoglycemia, due to brittle diabetes, higher dose of Levemir insulin and inconsistency in the oral intake, the patient was placed on D10, and subsequently discontinued. Levemir was also discontinued and the patient's blood sugars being monitored for now. The patient has not had any further episodes of hypoglycemia over the past 24 hours. In fact, the patient is currently running hyperglycemic. Altered mentation secondary to episodic hypoglycemia/psychosis, rule out metabolic encephalopathy secondary to episodes of hypoglycemia. She has other metabolic factors including end-stage renal disease. Patient is calm and comfortable currently on a combination of Wellbutrin, Remeron and Prolixin. End-stage renal disease normally receives hemodialysis Monday, Monday, Monday, last hemodialysis was on 08/03/2022 and hemodialysis done yesterday and a potassium level is normal Chronic anemia, hemoglobin was at 8.5 Acute hyperkalemia, treated Diabetes mellitus type 1 with extremely brittle blood sugar control. Previous history of cardiac arrest related to hyperkalemia on 07/11/2022 and a previous event in January 2022. History of CVA without residual Diabetic retinopathy and the patient is legally blind Diabetic neuropathy Restless leg syndrome Depression, denies any current suicidal ideation Plan Monitor blood sugar, attempts to put the patient on long-acting insulin resulted into hypoglycemic even at the lower doses. As such, this is a very complex case. The patient was given IV NovoLog 6 units for hyperglycemic this morning. Blood sugar is improved. Hypokalemia was treated Give the patient NovoLog 6 units with meals and a sliding scale coverage Monitor blood sugars Continue Wellbutrin, Remeron and Prolixin as recommended by psychiatry Increase mobility Continue Coreg and clonidine Hemodialysis per nephrology, last dialysis was on Monday
--- NOTE | 2022-08-07 11:50 | P.PN ---
Subjective Progress Note Date: 08/07/22 Principal diagnosis: This is a 31-year-old female with endstage renal failure on dialysis Monday. She was admitted on 07/27/2022 with GI blood loss and was transfused. In the interim she became agitated and hallucination was transferred to ICU. Neurology saw her diagnoses her with delirium of unknown etiology. Her blood sugars have been going up about 600 with potassium going up responding into the 6-7 range. She is on 6 units of Humulin before meals meals and additional when necessary coverage on a sliding scale. This morning blood sugar was 732 and corresponding potassium was 7.1. With IV insulin potassium came down to 5.3 when her current current blood sugar was 575. Subsequent blood sugar is 328. Chin is fairly asymptomatic except this morning her appetite was not as good. So she has not had her rectus this morning. This morning she is awake alert oriented comfortable denies any complaints. Objective - Vital Signs Vital signs: Vital Signs Temp 98.7 F 08/07/22 08:25 Pulse 83 08/07/22 08:25 Resp 16 08/07/22 08:25 BP 123/60 08/07/22 08:25 Pulse Ox 98 08/07/22 08:25 FiO2 2 08/04/22 00:00 Intake & Output 08/06/22 08/07/22 08/07/22 17:59 06:59 18:59 Intake Total 10 Balance 10 Weight Intake: IV 10 Invasive Line 5 10 Oral Other: # Voids # Bowel Movements Exam general awake alert oriented comfortable HEENT exam no JVP neck is supple no facial asymmetry Lungs clear to auscultation good air entry bilaterally Heart sounds unremarkable Nontender nondistended Extremity examination was no edema Neurologically awake alert oriented comfortable. Does not seem agitated at this time - Labs CBC & Chem 7: 08/04/22 04:11 08/07/22 11:04 Labs: Abnormal Lab Results - Last 24 Hours (Table) 08/06/22 08/06/22 08/07/22 Range/Units 16:37 20:15 01:52 Sodium (137-145) mmol/L Potassium (3.5-5.1) mmol/L Chloride (98-107) mmol/L Carbon Dioxide (22-30) mmol/L BUN (7-17) mg/dL Creatinine (0.52-1.04) mg/dL Glucose (74-99) mg/dL POC Glucose (mg/dL) 177 H 151 H 402 H (70-110) mg/dL 08/07/22 08/07/22 08/07/22 Range/Units 06:17 06:38 07:24 Sodium 130 L (137-145) mmol/L Potassium 7.1 H* (3.5-5.1) mmol/L Chloride 92 L (98-107) mmol/L Carbon Dioxide 17 L (22-30) mmol/L BUN 69 H (7-17) mg/dL Creatinine 8.35 H* (0.52-1.04) mg/dL Glucose 732 H* (74-99) mg/dL POC Glucose (mg/dL) >600 H >600 H (70-110) mg/dL 08/07/22 08/07/22 Range/Units 08:41 11:04 Sodium (137-145) mmol/L Potassium 5.3 H (3.5-5.1) mmol/L Chloride (98-107) mmol/L Carbon Dioxide (22-30) mmol/L BUN (7-17) mg/dL Creatinine (0.52-1.04) mg/dL Glucose 575 H* 328 H (74-99) mg/dL POC Glucose (mg/dL) (70-110) mg/dL Microbiology - Last 24 Hours (Table) 08/03/22 06:00 Blood Culture - Preliminary Blood No Growth after 96 hours 08/02/22 13:23 Blood Culture - Preliminary Blood No Growth after 96 hours Assessment and Plan Assessment: Impression 1. ESRD on dialysis Monday diabetic nephropathy. 2. Admitted with gastroenteritis and nausea vomiting diarrhea and hypotension. Resolved 3. Delirium resolved cause not very clear 4. Uncontrolled diabetes blood sugar with hyperkalemia secondary to potassium shift from intracellular stores 5. Hyperkalemia secondary to uncontrolled blood sugars 6. Hemoglobin is 8.5 on 08/04/2022. Recommendation 1. Hemodialysis tomorrow 2. Strict blood sugar control, I have increased the scheduled Humulin before meals meals from 6 units to 8 units 3. Recently discharge from a nephrological perspective
[2022-08-07 11:58] LABS: Glucose,Whole Blood 357 mg/dL (70-110)
[2022-08-07 17:58] LABS: Glucose,Whole Blood 94 mg/dL (70-110)
[2022-08-07] MEDS: DEXMEDETOMIDINE/0.9% NACL(PMX) 400 MCG in EMPTY BAG 1 BAG IV SCH (17:58)
--- NOTE | 2022-08-07 19:52 | PN ---
PROGRESS NOTE DATE OF SERVICE: 08/07/2022 CHIEF COMPLAINT: Renal failure. HISTORY OF PRESENT ILLNESS: This lady is going back into other critical issues. Her potassium carlos to around 7.5 and her blood sugar has been up as well as her blood pressure. REVIEW OF SYSTEMS: She is not complaining of any headaches, chest pain, shortness of breath, abdominal pain, etc. IMPRESSION: 1. Stage 5 chronic kidney disease. 2. Uncontrolled hypertension with a recent history of hypotension. 3. Uncontrolled type 1 insulin-dependent diabetes mellitus. 4. Hyperkalemia. PLAN: There was a thought that she might be able to go home, but now that her blood pressure, blood sugars and potassium are out of range, we will continue with inpatient management. MMODL / IJN: [id number] /
[2022-08-07 20:44] LABS: Glucose,Whole Blood 45 mg/dL (70-110)
[2022-08-07 21:09] LABS: Glucose,Whole Blood 45 mg/dL (70-110)
[2022-08-07 21:33] LABS: Glucose,Whole Blood 71 mg/dL (70-110)
[2022-08-07] MEDS: MELATONIN 5 MG TABLET PO SCH (21:34)
[2022-08-07] MEDS: MIRTAZAPINE 15 MG TAB PO SCH (21:34)
[2022-08-07] MEDS: FAMOTIDINE 20 MG TAB PO SCH (21:35)
[2022-08-08 02:03] LABS: Glucose,Whole Blood 509 mg/dL (70-110)
[2022-08-08] MEDS: INSULIN ASPART (NovoLOG) 100 UNIT/ML VIAL SQ SCH ×8 (02:05→20:38)
[2022-08-08] MEDS: DEXTROSE 10% IN WATER 500 ML in EMPTY BAG 1 BAG IV SCH ×3 (02:25→16:15)
[2022-08-08 06:15] LABS: Glucose,Whole Blood 283 mg/dL (70-110)
[2022-08-08] MEDS: carvediloL 12.5 MG TAB PO SCH ×2 (06:22→16:21)
[2022-08-08] MEDS: CALCIUM ACETATE 667 MG TAB PO SCH ×3 (06:22→16:21)
[2022-08-08 06:50] LABS: Calcium 9.3 mg/dL (8.4-10.2)
[2022-08-08 07:24] LABS: Potassium 6.2 mmol/L (3.5-5.1)
[2022-08-08] MEDS: CYANOCOBALAMIN 500 MCG TAB PO SCH (08:33)
[2022-08-08] MEDS: buPROPion XL 150 MG TAB.ER.24H PO SCH (08:33)
[2022-08-08] MEDS: ATORVASTATIN 40 MG TAB PO SCH (08:33)
[2022-08-08] MEDS: ASPIRIN 81 MG PO SCH (08:33)
[2022-08-08] MEDS: TORSEMIDE 20 MG TAB PO SCH ×2 (08:33→20:37)
[2022-08-08] MEDS: cloNIDine HCL 0.1 MG TAB PO SCH ×4 (08:33→20:38)
[2022-08-08 11:41] LABS: Glucose,Whole Blood 180 mg/dL (70-110)
--- NOTE | 2022-08-08 11:55 | P.PN ---
Subjective Patient is seen for follow-up for end-stage renal disease Patient is seen on hemodialysis. A zoom meeting with court being planned. Mother at bedside Goal UF of about 4.5 L today. Objective - Vital Signs Vital signs: Vital Signs Temp 98.5 F 08/08/22 08:00 Pulse 70 08/08/22 08:00 Resp 12 08/08/22 08:00 BP 131/74 08/08/22 08:00 Pulse Ox 98 08/08/22 08:00 FiO2 2 08/04/22 00:00 Intake & Output 08/07/22 08/08/22 08/08/22 18:59 06:59 18:59 Intake Total 492 236 Balance 492 236 Weight 53 kg Intake: IV 20 Invasive Line 5 20 Oral 472 236 Other: # Voids 0 # Bowel Movements 0 1 - Exam Awake, comfortable, no acute distress Examination of the lower extremity shows no significant edema Face appears slightly puffy Access working well. - Labs CBC & Chem 7: 08/04/22 04:11 08/08/22 06:09 Labs: Abnormal Lab Results - Last 24 Hours (Table) 08/07/22 08/07/22 08/07/22 Range/Units 11:57 20:42 21:08 Sodium (137-145) mmol/L Potassium (3.5-5.1) mmol/L Chloride (98-107) mmol/L Carbon Dioxide (22-30) mmol/L BUN (7-17) mg/dL Creatinine (0.52-1.04) mg/dL Glucose (74-99) mg/dL POC Glucose (mg/dL) 357 H 45 L 45 L (70-110) mg/dL 08/08/22 08/08/22 08/08/22 Range/Units 02:00 06:09 06:14 Sodium 131 L (137-145) mmol/L Potassium 6.2 H* (3.5-5.1) mmol/L Chloride 95 L (98-107) mmol/L Carbon Dioxide 21 L (22-30) mmol/L BUN 87 H (7-17) mg/dL Creatinine 9.07 H* (0.52-1.04) mg/dL Glucose 288 H (74-99) mg/dL POC Glucose (mg/dL) 509 H 283 H (70-110) mg/dL 08/08/22 Range/Units 11:38 Sodium (137-145) mmol/L Potassium (3.5-5.1) mmol/L Chloride (98-107) mmol/L Carbon Dioxide (22-30) mmol/L BUN (7-17) mg/dL Creatinine (0.52-1.04) mg/dL Glucose (74-99) mg/dL POC Glucose (mg/dL) 180 H (70-110) mg/dL Microbiology - Last 24 Hours (Table) 08/03/22 06:00 Blood Culture - Preliminary Blood No Growth after 120 hours 08/02/22 13:23 Blood Culture - Preliminary Blood No Growth after 120 hours Assessment and Plan Assessment: 1. ESRD on dialysis Monday diabetic nephropathy. 2. Admitted with gastroenteritis and nausea vomiting diarrhea and hypotension. Resolved 3. Delirium resolved cause not very clear, improved 4. Uncontrolled diabetes blood sugar with hyperkalemia secondary to potassium shift from intracellular stores 5. Hyperkalemia secondary to uncontrolled blood sugars 6. Anemia of chronic disease Plan: Hemodialysis today with goal UF of about 4.5 L as tolerated
--- NOTE | 2022-08-08 13:28 | P.PN ---
Subjective Progress Note Date: 08/08/22 Principal diagnosis: Recurrent hypoglycemia On today's evaluation of 08/01/2022, the patient is being seen for a follow-up. She is stable, calm and comfortable,. She is a very brittle diabetic and the patient has end-stage renal disease and the patient is currently on hemodia lysis. The patient underwent hemodialysis today and the patient tolerated the procedure well. No chest pain. No shortness of breath. No hypotension. Blood pressure was quite elevated and nephrology is on the case. She is currently on oxygen at 4 L per minute nasal cannula. WBC count is at 6.6 with a hemoglobin of 7.9 and a platelet count of 267. Creatinine is at 4.29. Continues to have a very labile blood sugar. Sugars dropped down to 48 and the patient is currently treated and the patient has her lunch sitting at the bedside. Earlier this morning, her blood sugar was high as 416 and I see that her current insulin coverage is with Levemir 12 units along with 6 units of NovoLog with meals and a sliding scale coverage. Coreg 25 mg by mouth twice a day, and clonidine of no twice a day. The patient had a chest x-ray on 07/30/2021 that showed cardiomegaly and small right-sided pleural effusion. On today's evaluation of 08/02/2022, the patient is having another episode of hypoglycemia. The patient was given D50. The patient was placed on D5 water at the rate of 50 mL an hour. She is becoming uncooperative with the medical treatment. I told her the Levemir dose of being provided to this patient's was at a higher dose and the dose has been further lowered down to 8 units. The patient is not consistent with her oral intake. The patient has a very brittle labile blood sugar control. She still having massive lacerations. Her respiratory status is stable for now. She is receiving 6 units of NovoLog with meals plus a sliding scale coverage. She remains on same medication for now. Blood sugars being monitored on the medical floor. On 08/03/2022, the patient back to the intensive care unit. Transfer the patient yesterday as the patient was becoming progressively more delerious and her condition was not being manageable on the floor. The patient was becoming irritable, aggressive, agitated, refusing medication treatment and restless and she was skin picking. At that point, she was given a total of 10 mg of IV Haldol and she continued to be quite restless. She was brought into the intensive care unit and she is currently on Precedex which is running at 1.4 mcg/kg/m. Overall, she seems to more comfortable this morning. She is following commands. She is undergoing hemodialysis at the dialysis was started approximately 30 minutes ago. She was having issues with hypoglycemia the day yesterday. Note that she was given a higher dose of Levemir insulin which contributions of hypoglycemia. The blood sugar was as low was 33 and later on 48. Based on that, the patient was started on D5 water and currently she is running high on her blood sugar. She is only on a sliding scale coverage. She is also on Levemir insulin and the current doses at 8 units. Oral intake is extremely poor and the patient does not eat consistently. No nausea. No emesis. No diarrhea. No abdominal pain. Hemodynamically, she is stable. She is moving all 4 extremities without limitation. The patient was also seen by psychiatry and she was started on Prolixin 2 mg at bedtime and 2 mg by mouth twice a day and when necessary. She is also on a combination of Coreg and Catapres for BP On today's evaluation of 08/04/2022, the patient is being seen for a follow-up. The patient remains in intensive care unit. Noted the patient had an acute delirium which ultimately improved. The patient was placed on Precedex which was weaned off and discontinued. The patient is currently on Prolixin. On today's evaluation, she is awake and alert and following commands. No agitation. Nevertheless, the patient is having issues with hypoglycemia. Mother the patient was on Levemir insulin and I ended up discontinuing the Levemir insulin as the patient's blood sugars have been persistently low. The patient was placed on D10 infusion and the most recent blood sugar is above 90. Throughout the night, the patient was having episodes of hypoglycemia. She also needed D50 IV pushes. Her oral intake is not consistent. I was told that she had a good dinner last night. She did have some emesis following her dinner. She remains on 2 L of oxygen by nasal cannula. Hemodialysis was performed yesterday and the patient total of 4 L of ultrafiltration. No agitation. Levemir insulin as been discontinued. On 08/05/2022, the patient is awake and alert. No agitation. No confusion. No neurologic manifestations. The patient is still on Prolixin. The patient is currently off Precedex and she's been off Precedex for more than 24 hours she is off the dextrose 10 infusion. She is off Levemir. Blood sugars are in the 250 range. Most recent blood sugar is around 260. She is receiving only sliding scale coverage and she is also receiving 6 units with meals of NovoLog. No labs are available from today. Today is her dialysis day for this patient. She is resting comfortably. No nausea or vomiting. Breakfast is at the bedside and she doesn't seems to be hungry this morning. I'm not sure she is going to have her breakfast. She had all of her dinner last night. On today's evaluation of 08/06/2022, she has no complaints and she is doing well, awake and alert. Blood sugar this morning came up to 600 and she was given insulin coverage. She was asymptomatic along with that. No episodes of hypoglycemia. He was seen by psychiatry regarding her delirium. He was recommended to start the patient Wellbutrin XL 150 mg daily and about 7.5 mg at bedtime and melatonin 10 mg for sleep. The Prolixin was reduced down to 1 mg twice a day scheduled. The patient underwent hemodialysis yesterday. Potassium levels improved. Most recent blood sugars at 181. On 08/07/2022, the patient continues to have issues with hyperglycemia. Blood sugar this morning was 732. She was given insulin IV 6 units and a subsequent blood sugar came at 575. During this time, the potassium will also 5.3. Neurologically, she is intact and stable. Melanocytic is stable. She is on oxygen at 2 L nasal cannula. She is not consistent with her oral intake. I was told that she ate all meals yesterday, did not have breakfast this morning. Reevaluated today on 08/08/2022, patient is doing well, asymptomatic, no major issues from the pulmonary perspective, she is on room air, O2 sats is 99%, her sugars are being addressed by her admitting physician, we will sign off and see the patient on when necessary basis. Objective - Vital Signs Vital signs: Vital Signs Temp 98.0 F 08/08/22 13:05 Pulse 79 08/08/22 13:05 Resp 20 08/08/22 13:05 BP 138/78 08/08/22 13:05 Pulse Ox 99 08/08/22 12:00 FiO2 2 08/04/22 00:00 Intake & Output 08/07/22 08/08/22 08/08/22 18:59 06:59 18:59 Intake Total 492 536 Output Total 4600 Balance 492 -4064 Weight 53 kg Intake: IV 20 Invasive Line 5 20 Oral 472 236 Hemodialysis 300 Output: Hemodialysis 4600 Other: # Voids 0 # Bowel Movements 0 1 - Exam Physical Exam: Revealed a 31-year-old female in no distress on room air Head: Atraumatic, normocephalic. HEENT:[Neck is supple.] [No neck masses.] [No thyromegaly.] [No JVD.] Chest: [Clear throughout, no crackles, no rhonchi, no wheezes.] Cardiac Exam: [Normal S1 and S2, no S3 gallop, no murmur.] Abdomen: [Soft, nontender, no megaly, no rebound, no guarding, normal bowel sounds.] Extremities: [No clubbing, no edema, no cyanosis.] Neurological Exam: [No focal neurologic deficit.] Psychiatric: Normal mood affect and normal mental status examination. - Labs CBC & Chem 7: 08/04/22 04:11 08/08/22 06:09 Labs: Abnormal Lab Results - Last 24 Hours (Table) 08/07/22 08/07/22 08/08/22 Range/Units 20:42 21:08 02:00 Sodium (137-145) mmol/L Potassium (3.5-5.1) mmol/L Chloride (98-107) mmol/L Carbon Dioxide (22-30) mmol/L BUN (7-17) mg/dL Creatinine (0.52-1.04) mg/dL Glucose (74-99) mg/dL POC Glucose (mg/dL) 45 L 45 L 509 H (70-110) mg/dL 08/08/22 08/08/22 08/08/22 Range/Units 06:09 06:14 11:38 Sodium 131 L (137-145) mmol/L Potassium 6.2 H* (3.5-5.1) mmol/L Chloride 95 L (98-107) mmol/L Carbon Dioxide 21 L (22-30) mmol/L BUN 87 H (7-17) mg/dL Creatinine 9.07 H* (0.52-1.04) mg/dL Glucose 288 H (74-99) mg/dL POC Glucose (mg/dL) 283 H 180 H (70-110) mg/dL Microbiology - Last 24 Hours (Table) 08/03/22 06:00 Blood Culture - Preliminary Blood No Growth after 120 hours 08/02/22 13:23 Blood Culture - Preliminary Blood No Growth after 120 hours Assessment and Plan Assessment: Impression: Recurrent hypoglycemic episodes with brittle diabetes End-stage renal disease, on hemodialysis Type 1 diabetes Previous history of cardiac arrest related to hyperkalemia Diabetic retinopathy and nephropathy Diabetic neuropathy Recommendation: Continue present supportive care measures Patient is being followed by many consultants including her primary care physician, We will sign off and see the patient on when necessary basis Time with Patient: Less than 30
[2022-08-08] MEDS: DEXMEDETOMIDINE/0.9% NACL(PMX) 400 MCG in EMPTY BAG 1 BAG IV SCH (16:15)
[2022-08-08 16:19] LABS: Glucose,Whole Blood 205 mg/dL (70-110)
[2022-08-08 19:58] LABS: Calcium 9.3 mg/dL (8.4-10.2); Potassium 4.7 mmol/L (3.5-5.1)
[2022-08-08 20:15] LABS: Glucose,Whole Blood 170 mg/dL (70-110)
[2022-08-08] MEDS: FAMOTIDINE 20 MG TAB PO SCH (20:38)
[2022-08-08] MEDS: MELATONIN 5 MG TABLET PO SCH (20:38)
[2022-08-08] MEDS: MIRTAZAPINE 15 MG TAB PO SCH (20:38)
[2022-08-09 01:41] LABS: Glucose,Whole Blood 496 mg/dL (70-110)
[2022-08-09] MEDS: DEXTROSE 10% IN WATER 500 ML in EMPTY BAG 1 BAG IV SCH (02:09)
[2022-08-09 06:23] LABS: Glucose,Whole Blood 343 mg/dL (70-110)
[2022-08-09] MEDS: carvediloL 12.5 MG TAB PO SCH (06:29)
[2022-08-09] MEDS: CALCIUM ACETATE 667 MG TAB PO SCH ×2 (06:29→13:09)
[2022-08-09] MEDS: INSULIN ASPART (NovoLOG) 100 UNIT/ML VIAL SQ SCH ×3 (06:30→13:10)
[2022-08-09 09:06] VITALS: RESP 16
[2022-08-09 11:09] VITALS: BMI 18.9
--- NOTE | 2022-08-09 11:24 | P.PN ---
Subjective Patient is seen for follow-up for end-stage renal disease Patient is seen on hemodialysis. Status post 4.6 L of ultrafiltration yesterday. The planning for about 3 L today. No other complaints Objective - Vital Signs Vital signs: Vital Signs Temp 97.8 F 08/09/22 08:00 Pulse 84 08/09/22 08:00 Resp 16 08/09/22 08:00 BP 137/68 08/09/22 08:00 Pulse Ox 98 08/09/22 08:37 FiO2 21 08/08/22 15:16 Intake & Output 08/08/22 08/09/22 08/09/22 18:59 06:59 18:59 Intake Total 1036 780 356 Output Total 4600 Balance -3564 780 356 Weight 50 kg 50 kg Intake: Oral 736 780 356 Hemodialysis 300 Output: Hemodialysis 4600 Other: # Bowel Movements 1 3 - Exam Awake, comfortable, no acute distress Examination of the lower extremity shows no significant edema Alert oriented 3 Access working well. - Labs CBC & Chem 7: 08/04/22 04:11 08/08/22 18:45 Labs: Abnormal Lab Results - Last 24 Hours (Table) 08/08/22 08/08/22 08/08/22 Range/Units 11:38 16:16 18:45 Chloride 97 L (98-107) mmol/L BUN 40 H (7-17) mg/dL Creatinine 4.56 H (0.52-1.04) mg/dL Glucose 129 H (74-99) mg/dL POC Glucose (mg/dL) 180 H 205 H (70-110) mg/dL 08/08/22 08/09/22 08/09/22 Range/Units 20:14 01:40 06:22 Chloride (98-107) mmol/L BUN (7-17) mg/dL Creatinine (0.52-1.04) mg/dL Glucose (74-99) mg/dL POC Glucose (mg/dL) 170 H 496 H 343 H (70-110) mg/dL Microbiology - Last 24 Hours (Table) 08/03/22 06:00 Blood Culture - Final Blood No Growth after 144 hours 08/02/22 13:23 Blood Culture - Final Blood No Growth after 144 hours Assessment and Plan Assessment: 1. ESRD on dialysis Monday, diabetic nephropathy. 2. Admitted with gastroenteritis and nausea vomiting diarrhea and hypotension. Resolved 3. Delirium resolved cause not very clear, improved 4. Uncontrolled diabetes blood sugar with hyperkalemia secondary to potassium shift from intracellular stores 5. Hyperkalemia secondary to uncontrolled blood sugars 6. Anemia of chronic disease 7. Fluid overload currently improved Plan: Hemodialysis today with goal UF of about 3 L as tolerated Repeat hemodialysis in a.m. if patient is not discharged
[2022-08-09 11:30] LABS: Glucose,Whole Blood 133 mg/dL (70-110)
[2022-08-09 12:32] VITALS: TEMP 97.2
[2022-08-09 13:02] VITALS: BP 164/85; PULSE 83
[2022-08-09] MEDS: TORSEMIDE 20 MG TAB PO SCH (13:09)
[2022-08-09] MEDS: ASPIRIN 81 MG PO SCH (13:09)
[2022-08-09] MEDS: CYANOCOBALAMIN 500 MCG TAB PO SCH (13:09)
[2022-08-09] MEDS: cloNIDine HCL 0.1 MG TAB PO SCH (13:09)
[2022-08-09] MEDS: ATORVASTATIN 40 MG TAB PO SCH (13:10)
[2022-08-09] MEDS: buPROPion XL 150 MG TAB.ER.24H PO SCH (13:10)
--- NOTE | 2022-08-09 14:01 | P.PN ---
Progress Note - Text Progress Note Date: 08/09/22 Interval History: Patient was seen today for psychiatric follow-up. Patient was laying in the bed today getting ready for discharge. She had her street clothing on. She claims that she is doing a bit better today however does state the she needs to be restarted back on her Cymbalta. She claims that her hospitalist to get away from her. She claims that her anxiety is improving. She appears to be more future oriented and optimistic. States that she is sleeping at night fairly well. She was fairly directable and appropriately during conversation. She states that she has been taking her medications and not reporting any complaints. She was alert and oriented 3 today, improvement in concentration span and also cooperativeness. improving judgment. patient is denying any Si or Hi and denying any Ah or VH at this time. Mental Status Exam: General Appearance: Patient appears to be thin, short hair, stated age is alert, following commands. Patient appears to have fair hygiene and grooming wearing hospital gown with poor eye contact. Behavior: Patient is lying in bed, irritable not uncooperative. Improved attention span Speech: Patient's speech is fluent and nonpressured Mood/Affect: Patient reports their mood is "good", affect is congruent Suicidality/Homicidality: Patient denies having any suicidal or homicidal ideation intent or plan. Perceptions: Patient denies any visual hallucinations and denies any auditory hallucinations Though content/process: There is no evidence of any delusional thought content. concrete. no delusions. Memory and concentration: AOX3, improving concentrartion and memory recall Judgment and insight: improving mildly IMPRESSIONS: Delirium, unknown etiology history of depression and anxiety Anxiety disorder unspecified PLAN: -At this time patient DOES NOT meet criteria for inpatient psychiatric admission. -Would recommend the following medication changes/additions: continue with wellbutrin xl 150 mg daily and remeron 7.5 mg qhs for insomnia/mood. continue melatonin 10 mg qhs for sleep. can resume cymbalta for depression/mood. -Communicated plan to patient's nurse -at this time psychiatry will sign off -patient can follow up with outpt MH services. -Please contact with any questions.
--- NOTE | 2022-08-11 21:21 | PN ---
PROGRESS NOTE DATE OF SERVICE: 08/08/2022 CHIEF COMPLAINT: Uncontrolled hypertension, renal failure, and uncontrolled diabetes. HISTORY OF PRESENT ILLNESS: This lady was doing fairly well, but her sugar shot up once again. It was planned that she would be discharged, but this will be withheld. PHYSICAL EXAMINATION: CHEST: Clear. CARDIAC: Unremarkable. ABDOMEN: Soft and nontender. IMPRESSION: 1. Uncontrolled hypertension. 2. Poorly-controlled type 1 insulin-dependent diabetes mellitus. 3. Diabetic retinopathy with blindness. PLAN: Cancel discharge today and look forward to possibly discharging her tomorrow. MMODL / IJN: [id number] /
--- NOTE | 2022-08-12 00:48 | DS ---
DISCHARGE SUMMARY CHIEF COMPLAINT: Hypotension. HISTORY OF PRESENT ILLNESS AND PHYSICAL EXAMINATION: Details of this lady's history can be found in her initial workup. COURSE IN THE HOSPITAL: After admission, she was placed on bedrest, started on intravenous fluids and antihypertensives were withheld. Dialysis was continued. Blood sugars waxed and waned. She slowly seemed to improve and as her blood pressure carlos and became elevated, her antihypertensives were restarted. Blood sugars fluctuated as usual. Finally, she seemed to be fairly stable and was anxious to be discharged on the , and she will go home on her regular activity, her usual medications, and dialysis. FINAL DIAGNOSES: 1. Hypotension. 2. History of hypertension. 3. Uncontrolled type 1 insulin-dependent diabetes mellitus. 4. Stage 5 chronic kidney disease. 5. Diabetic retinopathy with blindness. 6. Depression. OPERATIONS: None. CONSULTATIONS: Nephrology and Cardiology. EMILY / KYAW: [id number] /
== END 2022-08-09 13:46 | disposition home health service (06) | DRG 917 ==
LOC: EC 01:37 → 2SICU 03:45 → 5NMEDONC 07-28 06:13 → 2SICU 07-29 12:52 → 4SSUR 07-30 11:24 → 2SICU 08-02 17:57 → 3SCARD 08-05 12:20
PROVIDERS: ADMIT Family Medicine; ATTEND Family Medicine
PROC: 3E033XZ Introduction of Vasopressor into Peripheral Vein, Percutaneous Approach (ICD-10-PCS; principal; 2022-07-27)
PROC: 30233N1 Transfusion of Nonautologous Red Blood Cells into Peripheral Vein, Percutaneous Approach (ICD-10-PCS; 2022-07-27)
PROC: 5A1D70Z Performance of Urinary Filtration, Intermittent, Less than 6 Hours Per Day (ICD-10-PCS; 2022-07-27)
PROC: 6A550Z2 Pheresis of Platelets, Single (ICD-10-PCS; 2022-07-27)
DX: T46.5X4A Poisoning by other antihypertensive drugs, undetermined, initial encounter (principal); N18.6 End stage renal disease; R57.1 Hypovolemic shock; I13.11 Hypertensive heart and chronic kidney disease without heart failure, with stage 5 chronic kidney disease, or end stage renal disease; J90 Pleural effusion, not elsewhere classified; D62 Acute posthemorrhagic anemia; E87.1 Hypo-osmolality and hyponatremia; R44.3 Hallucinations, unspecified; F32.0 Major depressive disorder, single episode, mild; I31.39 Other pericardial effusion (noninflammatory); E10.649 Type 1 diabetes mellitus with hypoglycemia without coma; E10.42 Type 1 diabetes mellitus with diabetic polyneuropathy; E10.319 Type 1 diabetes mellitus with unspecified diabetic retinopathy without macular edema; Z86.74 Personal history of sudden cardiac arrest; E10.22 Type 1 diabetes mellitus with diabetic chronic kidney disease; I95.2 Hypotension due to drugs; Z99.2 Dependence on renal dialysis; G25.81 Restless legs syndrome; E10.65 Type 1 diabetes mellitus with hyperglycemia; H54.8 Legal blindness, as defined in USA; F41.9 Anxiety disorder, unspecified; M89.8X9 Other specified disorders of bone, unspecified site; R00.1 Bradycardia, unspecified; E87.70 Fluid overload, unspecified; M54.50 Low back pain, unspecified; H53.009 Unspecified amblyopia, unspecified eye; K52.9 Noninfective gastroenteritis and colitis, unspecified; R41.0 Disorientation, unspecified; R01.1 Cardiac murmur, unspecified; R45.1 Restlessness and agitation; Z86.73 Personal history of transient ischemic attack (TIA), and cerebral infarction without residual deficits; Z28.310 Unvaccinated for COVID-19; Z79.899 Other long term (current) drug therapy; Z79.82 Long term (current) use of aspirin; Z79.4 Long term (current) use of insulin; Z91.013 Allergy to seafood; Z91.041 Radiographic dye allergy status; Z81.8 Family history of other mental and behavioral disorders
CPT/HCPCS: 36410; 36415; 36430; 71045; 80048; 80053; 80202; 82140; 82565; 82947; 83605; 83735; 83880; 84132; 84145; 84484; 85025; 85027; 85610; 85730; 86850; 86900; 86901; 86920; 87040; 90935; 93005; 93308; 94760; 96361; 96365; 96366; 96367; 96368; 96375; 99291

== ENCOUNTER 2022-08-14 10:17 | Inpatient (IN) | payer MEDICARE, OTHER ==
[2022-08-14] MEDS ORDERED: SODIUM CHLORIDE 0.9% 500 ML 500 ML IV STA (10:24)
[2022-08-14] MEDS ORDERED: CALCIUM CHLORIDE 0.5 GM in SODIUM CHLORIDE 0.9% 50 ML IVPB ONE (10:24)
--- NOTE | 2022-08-14 10:28 | ED ---
General Adult HPI - General Chief complaint: Recheck/Abnormal Lab/Rx Stated complaint: hypotension Time Seen by Provider: 08/14/22 10:17 Source: patient, EMS, RN notes reviewed, old records reviewed Mode of arrival: EMS Limitations: no limitations - History of Present Illness Initial comments: This is a 31-year-old female who presents emergency Department with a past medical history significant for diabetes and high blood pressure. Patient states today she woke up did not take her blood pressure measurement and she took her nifedipine Catapres and hydralazine SAME time. Patient states lately thereafter she had some tingling to her fingerstick blood pressure and it was in the 80s systolic so she called EMS. EMS confirmed that her blood pressure was in the 80s. Patient has no chest pain palpitations difficulty breathing shortness of breath per patient is not lightheaded or dizzy. Patient has had no recent fever chills. Patient indicated to me she does not want to stay in the hospital overnight. - Related Data Home Medications Medication Instructions Recorded Confirmed carvediloL [Coreg] 25 mg PO BID 04/03/21 07/27/22 Escitalopram [Lexapro] 20 mg PO DAILY 04/17/21 07/27/22 Aspirin 81 mg PO DAILY 12/06/21 07/27/22 NIFEdipine XL [Procardia XL] 60 mg PO BID 12/06/21 07/27/22 Melatonin [Melatonin Dissolving 10 mg PO HS 12/21/21 07/27/22 Tablet] Lidocaine-Prilocaine Cream [Emla 1 applic TOPICAL MOWEFR PRN 02/09/22 07/27/22 Cream 2.5%/2.5%] buPROPion SR [Wellbutrin SR] 150 mg PO BID 02/09/22 07/27/22 DULoxetine HCL [Cymbalta] 30 mg PO DAILY 06/19/22 07/27/22 Ondansetron [Zofran] 4 mg PO TID PRN 06/19/22 07/27/22 Pantoprazole Sodium [Protonix] 20 mg PO DAILY 06/19/22 07/27/22 Torsemide [Demadex] 20 mg PO BID 06/19/22 07/27/22 rOPINIRole HCL [Requip] 1 mg PO TID 06/19/22 07/27/22 Albuterol Inhaler [Ventolin Hfa 2 puff INHALATION RT-QID PRN 07/11/22 07/27/22 Inhaler] Insulin Aspart [NovoLOG Flexpen] 6 units SQ AC-TID 07/11/22 07/27/22 Vitamin D 1,250mcg (Unknown) 1,250 mcg PO QMONTHLY 07/27/22 07/27/22 Previous Rx's Medication Instructions Recorded Glucagon Emergency Kit 1 mg IM ONCE PRN #1 kit 06/15/21 Cyanocobalamin [Vitamin B-12] 1,000 mcg PO DAILY #60 tab 09/06/21 Atorvastatin [Lipitor] 40 mg PO DAILY 30 Days #30 tab 10/13/21 Calcium Acetate [PhosLo] 667 mg PO TID-W/MEALS 30 Days #90 10/13/21 tab LORazepam [Ativan] 1 mg PO TID PRN #90 tab 12/09/21 hydrOXYzine HCL [Atarax] 25 mg PO TID PRN #90 tab 12/09/21 traZODone HCL [Desyrel] 50 mg PO HS PRN #30 tab 04/19/22 Darbepoetin Tate [Aranesp] 40 mcg SQ Q7D each 07/02/22 Insulin Detemir (Levemir) [Levemir] 12 unit SQ DAILY@0700 #30 each 07/02/22 cloNIDine HCL [Catapres] 0.3 mg PO TID #90 tab 07/19/22 hydrALAZINE HCL [Apresoline] 10 mg PO BID #60 tab 08/09/22 Allergies Allergy/AdvReac Type Severity Reaction Status Date / Time Fish Containing Products Allergy Rash/Hives Verified 07/27/22 07:00 [Fish] iodine Allergy Anaphylaxis Verified 07/27/22 07:00 Review of Systems ROS Statement: Those systems with pertinent positive or pertinent negative responses have been documented in the HPI. ROS Other: All systems not noted in ROS Statement are negative. Past Medical History Past Medical History: CVA/TIA, Diabetes Mellitus, Dialysis, Eye Disorder, Hypertension, Renal Disease Additional Past Medical History / Comment(s): cardiac arrest, respiratory failure requiring mechanical ventilation, ESRD with hemodialysis M/W/F, IDDM type 1, DKA, neuropathy bilateral legs/feet, diabetic retinopathy/legally blind, RLS, gastritis, severe hypokalemia, fluid retention in abdomin/legs. History of Any Multi-Drug Resistant Organisms: None Reported Past Surgical History: Appendectomy, Section, Cholecystectomy Additional Past Surgical History / Comment(s): fistula left arm Past Anesthesia/Blood Transfusion Reactions: No Reported Reaction Additional Past Anesthesia/Blood Transfusion Reaction / Comment(s): Last PRBC transfusion 07/27/22 Past Psychological History: Anxiety, Depression Additional Psychological History / Comment(s): Pt resides with her father and pt's 3 children. Pt gets to dialysis by grandparents/family or cab. Smoking Status: Never smoker Past Alcohol Use History: None Reported Past Drug Use History: None Reported - Past Family History Mother History Unknown: Yes Family Medical History: Cancer, Hypertension Additional Family Medical History / Comment(s): Thyroid cancer, bipolar Father History Unknown: Yes Family Medical History: Seizure Disorder Additional Family Medical History / Comment(s): Epilepsy General Exam - General Exam Comments Initial Comments: GENERAL: Patient is well-developed and well-nourished. Patient is nontoxic and well- hydrated and is in no acute distress. ENT: Neck is soft and supple. No significant lymphadenopathy is noted. Oropharynx is clear. Moist mucous membranes. Neck has full range of motion without eliciting any pain. EYES: The sclera were anicteric and conjunctiva were pink and moist. Extraocular movements were intact and pupils were equal round and reactive to light. Eyelids were unremarkable. PULMONARY: Unlabored respirations. Good breath sounds bilaterally. No audible rales rhonchi or wheezing was noted. CARDIOVASCULAR: There is a regular rate and rhythm without any murmurs gallops or rubs. ABDOMEN: Soft and nontender with normal bowel sounds. SKIN: Skin is clear with no lesions or rashes and otherwise unremarkable. NEUROLOGIC: Patient is alert and oriented x3. Cranial nerves II through XII are grossly intact. Motor and sensory are also intact. Normal speech, volume and content. Symmetrical smile. MUSCULOSKELETAL: Normal extremities with adequate strength and full range of motion. No lower extremity swelling or edema. No calf tenderness. LYMPHATICS: No significant lymphadenopathy is noted PSYCHIATRIC: Normal psychiatric evaluation. Limitations: no limitations Course Vital Signs 08/14/22 08/14/22 10:20 10:24 Temperature 98.1 F Pulse Rate 62 60 Respiratory 18 18 Rate Blood Pressure 89/62 95/53 O2 Sat by Pulse 100 100 Oximetry Medical Decision Making - Medical Decision Making EKG was interpreted by myself shows sinus rhythm at [address] interval 174 QRS is 89 QT interval is 41 QTC is 485. Patient's EKG shows no ST segment elevation or depression. Was pt. sent in by a medical professional or institution ([facility], MONITOR CAR OPERATOR, urgent care, hospital, or residential...) When possible be specific @ -No Did you speak to anyone other than the patient for history (EMS, parent, family, police, friend...)? What history was obtained from this source @ -EMS gave quite a bit of the history. Did you review nursing and triage notes (agree or disagree)? Why? @ -I reviewed and agree with nursing and triage notes Were old charts reviewed (outside hosp., previous admission, EMS record, old EKG, old radiological studies, urgent care reports/EKG's, residential records)? Report findings @ -Reviewed prior lab work and radiological studies compared lab work to today's lab work. Differential Diagnosis (chest pain, altered mental status, abdominal pain women, abdominal pain men, vaginal bleeding, weakness, fever, dyspnea, syncope, headache, dizziness, GI bleed, back pain, seizure, CVA, palpatations, mental health, musculoskeletal)? @ -Sepsis, hypovolemia, medication reaction EKG interpreted by me (3pts min.). @ -As above X-rays interpreted by me (1pt min.). @ -None done CT interpreted by me (1pt min.). @ -None done U/S interpreted by me (1pt. min.). @ -None done What testing was considered but not performed or refused? (CT, X-rays, U/S, labs)? Why? @ -None What meds were considered but not given or refused? Why? @ -None Did you discuss the management of the patient with other professionals (professionals i.e. [facility] [place], MONITOR CAR OPERATOR, lab, RT, psych nurse, case management social worker, shade hanger, teacher, air control/anti air warfare officer, upper caser)? Give summary @ -I spoke with Dr. Sita Buckner agreed to admit the patient I admitted the patient wrote admitting orders Was smoking cessation discussed for >3mins.? @ -No Was critical care preformed (if so, how long)? @ -No Were there social determinants of health that impacted care today? How? (Homelessness, low income, unemployed, alcoholism, drug addiction, transportation, low edu. Level, literacy, decrease access to med. care, custodial, rehab)? @ -No Was there de-escalation of care discussed even if they declined (Discuss DNR or withdrawal of care, Hospice)? DNR status @ -No What co-morbidities impacted this encounter? (DM, HTN, Smoking, COPD, CAD, Cancer, CVA, ARF, Chemo, Hep., AIDS, mental health diagnosis, sleep apnea, morbid obesity)? @ -None Was patient admitted / discharged? Hospital course, mention meds given and route, prescriptions, significant lab abnormalities, going to OR and other pertinent info. @ -Patient received a fluid bolus. Lab work came indicated she had an elevated troponins I spoke with Dr. Olvera and he agreed to admit the patient repeated the troponin did not want a cardiology consult this time. And we continue monitoring the patient's blood pressure. Undiagnosed new problem with uncertain prognosis? @ -No Drug Therapy requiring intensive monitoring for toxicity (Heparin, Nitro, Insulin, Cardizem)? @ -No Were any procedures done? @ -No Diagnosis/symptom? @ -Hypotension Acute, or Chronic, or Acute on Chronic? @ -Acute Uncomplicated (without systemic symptoms) or Complicated (systemic symptoms)? @ -Complicated Side effects of treatment? @ -No Exacerbation, Progression, or Severe Exacerbation? @ -No Poses a threat to life or bodily function? How? (Chest pain, [place], [place], pneumonia, PE, COPD, DKA, ARF, appy, cholecystitis, CVA, Diverticulitis, Homicidal, Suicidal, threat to staff... and all critical care pts) @ -Yes, hypotension and cause hypoperfusion to her organ systems Diagnosis/symptom? @ -Elevated troponin Acute, or Chronic, or Acute on Chronic? @ -Acute Uncomplicated (without systemic symptoms) or Complicated (systemic symptoms)? @ -Complicated Side effects of treatment? @ -none Exacerbation, Progression, or Severe Exacerbation] @ -no Poses a threat to life or bodily function? @ -This could lead to myocardial infarction which could eventually lead to hypoperfusion and end organ dysfunction - Lab Data Result diagrams: 08/14/22 10:25 08/14/22 10:25 Lab Results 08/14/22 08/14/22 08/14/22 Range/Units 10:25 10:25 10:25 WBC 7.0 (3.8-10.6) k/uL RBC 2.57 L (3.80-5.40) m/uL Hgb 7.3 L (11.4-16.0) gm/dL Hct 22.2 L (34.0-46.0) % MCV 86.5 (80.0-100.0) fL MCH 28.4 (25.0-35.0) pg MCHC 32.9 (31.0-37.0) g/dL RDW 17.0 H (11.5-15.5) % Plt Count 225 (150-450) k/uL MPV 8.8 Neutrophils % 77 % Lymphocytes % 11 % Monocytes % 4 % Eosinophils % 5 % Basophils % 1 % Neutrophils # 5.4 (1.3-7.7) k/uL Lymphocytes # 0.8 L (1.0-4.8) k/uL Monocytes # 0.3 (0-1.0) k/uL Eosinophils # 0.4 (0-0.7) k/uL Basophils # 0.1 (0-0.2) k/uL Anisocytosis Slight PT 11.1 (9.0-12.0) sec INR 1.1 (<1.2) APTT 23.5 (22.0-30.0) sec Sodium 134 L (137-145) mmol/L Potassium 5.4 H (3.5-5.1) mmol/L Chloride 94 L (98-107) mmol/L Carbon Dioxide 29 (22-30) mmol/L Anion Gap 11 mmol/L BUN 50 H (7-17) mg/dL Creatinine 5.42 H (0.52-1.04) mg/dL Est GFR (CKD-EPI)AfAm 11 (>60 ml/min/1.73 sqM) Est GFR (CKD-EPI)NonAf 10 (>60 ml/min/1.73 sqM) Glucose 179 H (74-99) mg/dL POC Glucose (mg/dL) (70-110) mg/dL POC Glu Toll Bridge Attendant ID Calcium 8.6 (8.4-10.2) mg/dL Magnesium 1.6 (1.6-2.3) mg/dL Total Bilirubin 0.6 (0.2-1.3) mg/dL AST 24 (14-36) U/L ALT 30 (4-34) U/L Alkaline Phosphatase 179 H (38-126) U/L Troponin I (0.000-0.034) ng/mL Total Protein 5.9 L (6.3-8.2) g/dL Albumin 3.6 (3.5-5.0) g/dL 08/14/22 08/14/22 Range/Units 10:25 12:10 WBC (3.8-10.6) k/uL RBC (3.80-5.40) m/uL Hgb (11.4-16.0) gm/dL Hct (34.0-46.0) % MCV (80.0-100.0) fL MCH (25.0-35.0) pg MCHC (31.0-37.0) g/dL RDW (11.5-15.5) % Plt Count (150-450) k/uL MPV Neutrophils % % Lymphocytes % % Monocytes % % Eosinophils % % Basophils % % Neutrophils # (1.3-7.7) k/uL Lymphocytes # (1.0-4.8) k/uL Monocytes # (0-1.0) k/uL Eosinophils # (0-0.7) k/uL Basophils # (0-0.2) k/uL Anisocytosis PT (9.0-12.0) sec INR (<1.2) APTT (22.0-30.0) sec Sodium (137-145) mmol/L Potassium (3.5-5.1) mmol/L Chloride (98-107) mmol/L Carbon Dioxide (22-30) mmol/L Anion Gap mmol/L BUN (7-17) mg/dL Creatinine (0.52-1.04) mg/dL Est GFR (CKD-EPI)AfAm (>60 ml/min/1.73 sqM) Est GFR (CKD-EPI)NonAf (>60 ml/min/1.73 sqM) Glucose (74-99) mg/dL POC Glucose (mg/dL) 92 (70-110) mg/dL POC Glu Toll Bridge Attendant ID Alondra Mcintyre Calcium (8.4-10.2) mg/dL Magnesium (1.6-2.3) mg/dL Total Bilirubin (0.2-1.3) mg/dL AST (14-36) U/L ALT (4-34) U/L Alkaline Phosphatase (38-126) U/L Troponin I 0.062 H* (0.000-0.034) ng/mL Total Protein (6.3-8.2) g/dL Albumin (3.5-5.0) g/dL Disposition Clinical Impression: Hypotension, Elevated troponin Disposition: ADMITTED IP TO THIS HOSP Referrals: Roque Buckner MD [Primary Care Provider] - 1-2 days Time of Disposition: 12:26
[2022-08-14 10:36] LABS: Anisocytosis Slight; Basophils # (A) 0.1 k/uL (0-0.2); Basophils % (A) 1 %; Eosinophils # (A) 0.4 k/uL (0-0.7); Eosinophils % (A) 5 %; HCT 22.2 % (34.0-46.0); HGB 7.3 gm/dL (11.4-16.0); Lymphocytes # (A) 0.8 k/uL (1.0-4.8); Lymphocytes % (A) 11 %; MCH 28.4 pg (25.0-35.0); MCHC 32.9 g/dL (31.0-37.0); MCV 86.5 fL (80.0-100.0); Mean Platelet Volume 8.8; Monocytes # (A) 0.3 k/uL (0-1.0); Monocytes % (A) 4 %; Neutrophils # (A) 5.4 k/uL (1.3-7.7); Neutrophils % (A) 77 %; Platelet Count 225 k/uL (150-450); RBC 2.57 m/uL (3.80-5.40)
[2022-08-14 10:49] LABS: Potassium 5.4 mmol/L (3.5-5.1)
[2022-08-14 10:50] LABS: Albumin 3.6 g/dL (3.5-5.0); Calcium 8.6 mg/dL (8.4-10.2); INR 1.1 (<1.2); Magnesium 1.6 mg/dL (1.6-2.3); Partial Thromboplastin Time 23.5 sec (22.0-30.0); Prothrombin Time 11.1 sec (9.0-12.0); Total Bilirubin 0.6 mg/dL (0.2-1.3); Total Protein 5.9 g/dL (6.3-8.2)
[2022-08-14 12:13] LABS: Glucose,Whole Blood 92 mg/dL (70-110)
[2022-08-14 18:41] LABS: Glucose,Whole Blood 147 mg/dL (70-110)
[2022-08-14] MEDS ORDERED: NON FORMULARY DRUG (Glucagon Emergency Kit 1 MG Kit) IM PRN (19:32)
[2022-08-14] MEDS ORDERED: hydrOXYzine HCL 25 MG TAB PO PRN (19:32)
[2022-08-14] MEDS ORDERED: SODIUM POLYSTYRENE SULFONATE 15 GM/60 ML BOTTLE PO STA (19:35)
[2022-08-14] MEDS: MELATONIN 5 MG TABLET PO SCH (19:59)
[2022-08-14] MEDS: carvediloL 12.5 MG TAB PO SCH (19:59)
[2022-08-14] MEDS: TORSEMIDE 20 MG TAB PO SCH (20:32)
[2022-08-14] MEDS: buPROPion SR 150 MG TABLET.ER PO SCH (20:32)
[2022-08-14 20:44] LABS: Glucose,Whole Blood 278 mg/dL (70-110)
[2022-08-14] MEDS: cloNIDine HCL 0.1 MG TAB PO SCH (21:50)
[2022-08-14] MEDS: hydrALAZINE HCL 50 MG TAB PO SCH (21:50)
[2022-08-14] MEDS: traZODone HCL 50 MG TAB PO PRN (21:50)
[2022-08-14 23:05] LABS: Calcium 8.7 mg/dL (8.4-10.2); Potassium 5.4 mmol/L (3.5-5.1)
[2022-08-15 01:52] LABS: Glucose,Whole Blood 348 mg/dL (70-110)
--- NOTE | 2022-08-15 04:04 | HP ---
HISTORY AND PHYSICAL CHIEF COMPLAINT: Hypotension. HISTORY OF PRESENT ILLNESS: Another admission for this sad young lady. She was discharged several days ago. She came back in with hypotension with her systolic blood pressure in the low 80s. REVIEW OF SYSTEMS: She denies any chest pain. She is not confused. She has had no focal neurologic deficits. She has had no vomiting, diarrhea, etc. Past medical history, family history, and personal and social histories are all unchanged. PHYSICAL EXAMINATION: VITAL SIGNS: Blood pressure is 82/60, pulse is 83, respirations are 20, and she is afebrile. GENERAL: She appeared to be her usual. SKIN: Dry. HEENT: Head, ears, eyes, nose, mouth and throat were unchanged. CHEST: Clear. CARDIAC: Normal. ABDOMEN: Soft and nontender. IMPRESSION: 1. Hypotension. 2. History of uncontrolled hypertension. 3. History of poorly controlled type 1 insulin-dependent diabetes mellitus. 4. Stage 5 chronic kidney disease, on dialysis. 5. Diabetic retinopathy with blindness. DEPRESSION: 1. Plan. 2. Bed rest. 3. IV fluids. 4. Withhold insulin for the time being. MMODL / IJN: [id number] /
[2022-08-15 06:06] LABS: Glucose,Whole Blood 333 mg/dL (70-110)
[2022-08-15] MEDS: CALCIUM ACETATE 667 MG TAB PO SCH ×3 (06:25→16:52)
[2022-08-15] MEDS: INSULIN DETEMIR (LEVEMIR) 100 UNIT/ML SYR SQ SCH (06:25)
[2022-08-15] MEDS: PANTOPRAZOLE 40 MG TABLET PO SCH (06:25)
[2022-08-15] MEDS: INSULIN ASPART (NovoLOG) 100 UNIT/ML VIAL SQ SCH ×6 (07:53→16:33)
[2022-08-15 08:18] LABS: Anisocytosis Slight; Basophils % (A) 1 %; Eosinophils # (A) 0.2 k/uL (0-0.7); Eosinophils % (A) 2 %; HCT 22.3 % (34.0-46.0); HGB 7.7 gm/dL (11.4-16.0); Lymphocytes # (A) 0.5 k/uL (1.0-4.8); Lymphocytes % (A) 7 %; MCHC 34.5 g/dL (31.0-37.0); MCV 86.9 fL (80.0-100.0); Mean Platelet Volume 8.7; Monocytes # (A) 0.3 k/uL (0-1.0); Monocytes % (A) 4 %; Neutrophils % (A) 85 %; Platelet Count 195 k/uL (150-450); RBC 2.57 m/uL (3.80-5.40); RDW 16.2 % (11.5-15.5)
[2022-08-15 08:23] LABS: Potassium 5.9 mmol/L (3.5-5.1)
[2022-08-15] MEDS: CYANOCOBALAMIN 500 MCG TAB PO SCH (09:17)
[2022-08-15] MEDS: buPROPion SR 150 MG TABLET.ER PO SCH ×2 (09:18→19:47)
[2022-08-15] MEDS: ATORVASTATIN 40 MG TAB PO SCH (09:18)
[2022-08-15] MEDS: ASPIRIN 81 MG PO SCH (09:18)
[2022-08-15] MEDS: DULoxetine HCL 30 MG CAPSULE.DR PO SCH (09:18)
[2022-08-15] MEDS: ESCITALOPRAM 20 MG TAB PO SCH (09:18)
[2022-08-15] MEDS: hydrALAZINE HCL 50 MG TAB PO SCH (09:59)
--- NOTE | 2022-08-15 10:53 | P.NPCON ---
History of Present Illness - Reason for Consult end stage renal disease - History of Present Illness Reason for consultation: End-stage renal disease History of present illness: Patient is a 31-year-old female seen in consultation for end-stage renal disease. She is maintained on hemodialysis on Monday was a Monday schedule. Patient states yesterday morning she checked her blood pressure and it was over 200 systolic. She took her home antihypertensives and states her blood pressure dropped into the systolic 70s. She came to the hospital due to hypotension. Patient received normal saline boluses in the ER with improvement in blood pressure. Patient states she feels swollen and is requesting dialysis. She denies chest pain. Currently on 4 L is a cannula. Blood pressures high. No chest pain. No vomiting or diarrhea. Blood glucose 290 this morning. Vital signs are stable. General: No acute distress. HEENT: Head exam is unremarkable. On nasal cannula. LUNGS: No audible rhonchi or wheezes. HEART: Rate and Rhythm are regular. ABDOMEN: Soft, no distention. EXTREMITITES: Trace edema. Past Medical History Past Medical History: CVA/TIA, Diabetes Mellitus, Dialysis, Eye Disorder, Hypertension, Renal Disease Additional Past Medical History / Comment(s): cardiac arrest, respiratory failure requiring mechanical ventilation, ESRD with hemodialysis M/W/F, IDDM type 1, DKA, neuropathy bilateral legs/feet, diabetic retinopathy/legally blind, RLS, gastritis, severe hypokalemia, fluid retention in abdomin/legs. History of Any Multi-Drug Resistant Organisms: None Reported Past Surgical History: Appendectomy, Section, Cholecystectomy Additional Past Surgical History / Comment(s): fistula left arm Past Anesthesia/Blood Transfusion Reactions: No Reported Reaction Additional Past Anesthesia/Blood Transfusion Reaction / Comment(s): Last PRBC transfusion 07/27/22 Past Psychological History: Anxiety, Depression Additional Psychological History / Comment(s): Pt resides with her father and pt's 3 children. Pt gets to dialysis by grandparents/family or cab. Smoking Status: Never smoker Past Alcohol Use History: None Reported Past Drug Use History: None Reported - Past Family History Mother History Unknown: Yes Family Medical History: Cancer, Hypertension Additional Family Medical History / Comment(s): Thyroid cancer, bipolar Father History Unknown: Yes Family Medical History: Seizure Disorder Additional Family Medical History / Comment(s): Epilepsy Medications and Allergies Home Medications Medication Instructions Recorded Confirmed Type carvediloL [Coreg] 25 mg PO BID 04/03/21 08/14/22 History Escitalopram [Lexapro] 20 mg PO DAILY 04/17/21 08/14/22 History Glucagon Emergency Kit 1 mg IM ONCE PRN #1 kit 06/15/21 08/14/22 Rx Cyanocobalamin [Vitamin B-12] 1,000 mcg PO DAILY #60 tab 09/06/21 08/14/22 Rx Atorvastatin [Lipitor] 40 mg PO DAILY 30 Days #30 tab 10/13/21 08/14/22 Rx Calcium Acetate [PhosLo] 667 mg PO TID-W/MEALS 30 Days #90 10/13/21 08/14/22 Rx tab Aspirin 81 mg PO DAILY 12/06/21 08/14/22 History NIFEdipine XL [Procardia XL] 60 mg PO BID 12/06/21 08/14/22 History LORazepam [Ativan] 1 mg PO TID PRN #90 tab 12/09/21 08/14/22 Rx hydrOXYzine HCL [Atarax] 25 mg PO TID PRN #90 tab 12/09/21 08/14/22 Rx Melatonin [Melatonin Dissolving 10 mg PO HS 12/21/21 08/14/22 History Tablet] Lidocaine-Prilocaine Cream [Emla 1 applic TOPICAL MOWEFR PRN 02/09/22 08/14/22 History Cream 2.5%/2.5%] buPROPion SR [Wellbutrin SR] 150 mg PO BID 02/09/22 08/14/22 History traZODone HCL [Desyrel] 50 mg PO HS PRN #30 tab 04/19/22 08/14/22 Rx DULoxetine HCL [Cymbalta] 30 mg PO DAILY 06/19/22 08/14/22 History Ondansetron [Zofran] 4 mg PO TID PRN 06/19/22 08/14/22 History Pantoprazole Sodium [Protonix] 20 mg PO DAILY 06/19/22 08/14/22 History Torsemide [Demadex] 20 mg PO BID 06/19/22 08/14/22 History rOPINIRole HCL [Requip] 1 mg PO TID 06/19/22 08/14/22 History Darbepoetin Tate [Aranesp] 40 mcg SQ Q7D each 07/02/22 08/14/22 Rx Insulin Detemir (Levemir) [Levemir] 12 unit SQ DAILY@0700 #30 each 07/02/22 08/14/22 Rx Albuterol Inhaler [Ventolin Hfa 2 puff INHALATION RT-QID PRN 07/11/22 08/14/22 History Inhaler] Insulin Aspart [NovoLOG Flexpen] 6 units SQ AC-TID 07/11/22 08/14/22 History cloNIDine HCL [Catapres] 0.3 mg PO TID #90 tab 07/19/22 08/14/22 Rx Ergocalciferol (Vitamin D2) 1,250 mcg PO Q30D 08/14/22 08/14/22 History [Drisdol (50,000 Iu)] Allergies Allergy/AdvReac Type Severity Reaction Status Date / Time Fish Containing Products Allergy Rash/Hives Verified 08/14/22 13:46 [Fish] iodine Allergy Anaphylaxis Verified 08/14/22 13:46 Physical Exam Vitals: Vital Signs Temp Pulse Pulse Resp BP BP Pulse Ox 08/15/22 07:42 85 16 181/88 95 08/15/22 03:27 97.9 F 86 19 175/65 95 08/15/22 02:00 18 08/14/22 23:05 17 106/62 99 08/14/22 20:00 18 08/14/22 19:55 98.1 F 84 18 159/97 99 08/14/22 16:00 62 16 140/104 97 08/14/22 15:47 66 12 106/68 96 08/14/22 14:30 64 20 119/75 97 08/14/22 14:00 61 16 119/79 98 08/14/22 13:00 63 16 110/72 92 L Intake and Output 08/14/22 08/15/22 08/15/22 22:59 06:59 14:59 Intake Total 240 Balance 240 Intake: Oral 240 Other: Voiding Method Toilet Toilet Weight 45.359 kg 51.5 kg Results - Lab Results Most recent lab results Calcium 9.0 mg/dL (8.4-10.2) 08/15/22 07:40 Magnesium 1.6 mg/dL (1.6-2.3) 08/14/22 10:25 08/15/22 07:40 08/15/22 07:40 Assessment and Plan Plan: Assessment: 1. End-stage renal disease maintained on hemodialysis on Monday schedule. 2. Hypertension with chronic kidney disease. Blood pressures labile. 3. Brittle diabetes mellitus. 4. Hyperkalemia secondary to chronic kidney disease and hyperglycemia. 5. Volume overload. 6. Anemia of chronic kidney disease. Rule out iron deficiency. 7. Chronic diastolic CHF with pericardial effusion. 8. 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 Plan: Hemodialysis today with goal 3-4 L at filtration. Home anti-hypertensives resumed. Avoid ACEi/ARB, aldactone due to risk of hyperkalemia. Avoid hydralazine/minoxidil due to pericardial effusion. Check iron studies. Hold Catapres for systolic blood pressure less than 120. Patient has been advised to monitor blood pressure closely at home and to hold antihypertensives for systolic blood pressure less than 120. Thank you for the consultation. I will continue to follow the patient with you during her hospital stay.
[2022-08-15] MEDS: carvediloL 12.5 MG TAB PO SCH ×2 (11:40→19:47)
[2022-08-15 11:44] LABS: Glucose,Whole Blood 151 mg/dL (70-110)
[2022-08-15] MEDS: LORazepam 1 MG TAB PO PRN (12:06)
[2022-08-15] MEDS ORDERED: DEXTROSE 50% SYRINGE 50 ML IVP ONE ×3 (14:16→16:34)
[2022-08-15 14:17] LABS: Glucose,Whole Blood 42 mg/dL (70-110)
[2022-08-15 14:33] LABS: Glucose,Whole Blood 96 mg/dL (70-110)
[2022-08-15 15:45] LABS: Glucose,Whole Blood 36 mg/dL (70-110)
[2022-08-15 15:56] LABS: Glucose,Whole Blood 123 mg/dL (70-110)
[2022-08-15] MEDS: cloNIDine HCL 0.1 MG TAB PO SCH ×3 (16:08→21:29)
[2022-08-15 16:33] LABS: Glucose,Whole Blood 43 mg/dL (70-110)
[2022-08-15] MEDS ORDERED: DEXTROSE 50% SYRINGE 50 ML IVP PRN ×2 (16:38)
[2022-08-15 16:51] LABS: Glucose,Whole Blood 132 mg/dL (70-110)
[2022-08-15] MEDS: TORSEMIDE 20 MG TAB PO SCH ×2 (16:53→19:47)
[2022-08-15 18:39] LABS: Glucose,Whole Blood 45 mg/dL (70-110)
[2022-08-15] MEDS: DEXTROSE 50% SYRINGE 50 ML IVP PRN (18:39)
[2022-08-15 18:43] LABS: % Iron Saturation 4.35 (12.00-45.00)
[2022-08-15] MEDS: cloNIDine HCL 0.1 MG TAB PO PRN (18:50)
[2022-08-15 18:54] LABS: Glucose,Whole Blood 165 mg/dL (70-110)
[2022-08-15] MEDS: MELATONIN 5 MG TABLET PO SCH (19:47)
[2022-08-15] MEDS: ONDANSETRON 4 MG TAB PO PRN (19:48)
[2022-08-15 20:12] LABS: Glucose,Whole Blood 175 mg/dL (70-110)
[2022-08-15 23:33] LABS: Glucose,Whole Blood 115 mg/dL (70-110)
[2022-08-16 02:20] LABS: Glucose,Whole Blood 108 mg/dL (70-110)
[2022-08-16 05:38] LABS: Glucose,Whole Blood 251 mg/dL (70-110)
[2022-08-16] MEDS: ONDANSETRON 4 MG TAB PO PRN (05:39)
[2022-08-16 06:05] LABS: Glucose,Whole Blood 282 mg/dL (70-110)
[2022-08-16] MEDS: CALCIUM ACETATE 667 MG TAB PO SCH ×3 (06:20→17:03)
[2022-08-16] MEDS: PANTOPRAZOLE 40 MG TABLET PO SCH (06:20)
[2022-08-16] MEDS: INSULIN DETEMIR (LEVEMIR) 100 UNIT/ML SYR SQ SCH (06:20)
[2022-08-16] MEDS: INSULIN ASPART (NovoLOG) 100 UNIT/ML VIAL SQ SCH ×6 (08:19→17:08)
[2022-08-16] MEDS: ATORVASTATIN 40 MG TAB PO SCH (08:23)
[2022-08-16] MEDS: ASPIRIN 81 MG PO SCH (08:23)
[2022-08-16] MEDS: ESCITALOPRAM 20 MG TAB PO SCH (08:23)
[2022-08-16] MEDS: CYANOCOBALAMIN 500 MCG TAB PO SCH (08:23)
[2022-08-16] MEDS: DULoxetine HCL 30 MG CAPSULE.DR PO SCH (08:23)
[2022-08-16] MEDS: buPROPion SR 150 MG TABLET.ER PO SCH ×2 (08:24→20:57)
[2022-08-16] MEDS: cloNIDine HCL 0.1 MG TAB PO SCH ×3 (08:24→22:00)
--- NOTE | 2022-08-16 10:15 | P.PN ---
Subjective Patient is seen in follow-up for end-stage renal disease. She is maintained on hemodialysis on Monday schedule. Tolerated 4.9 L u ltrafiltration yesterday. Blood pressure controlled this morning. No active complaints. Vital signs are stable. General: No acute distress. HEENT: Head exam is unremarkable. LUNGS: No audible rhonchi or wheezes. HEART: Rate and Rhythm are regular. ABDOMEN: No distention. EXTREMITITES: No edema. Objective - Vital Signs Vital signs: Vital Signs Temp 98.4 F 08/16/22 08:00 Pulse 71 08/16/22 08:00 Resp 20 08/16/22 08:00 BP 104/53 08/16/22 08:00 Pulse Ox 90 L 08/16/22 08:00 FiO2 Intake & Output 08/15/22 08/16/22 08/16/22 18:59 06:59 18:59 Intake Total 300 Output Total 4900 Balance -4600 Weight 47.2 kg Intake: Hemodialysis 300 Output: Hemodialysis 4900 Other: Voiding Method Toilet - Labs CBC & Chem 7: 08/15/22 07:40 08/15/22 07:40 Labs: Abnormal Lab Results - Last 24 Hours (Table) 08/15/22 08/15/22 08/15/22 Range/Units 11:29 12:02 14:15 POC Glucose (mg/dL) 151 H 42 L (70-110) mg/dL Iron 13 L (50-170) ug/dL % Saturation 4.35 L (12.00-45.00) Ferritin 956.0 H (10.0-291.0) ng/mL 08/15/22 08/15/22 08/15/22 Range/Units 15:40 15:54 16:31 POC Glucose (mg/dL) 36 L 123 H 43 L (70-110) mg/dL Iron (50-170) ug/dL % Saturation (12.00-45.00) Ferritin (10.0-291.0) ng/mL 08/15/22 08/15/22 08/15/22 Range/Units 16:50 18:37 18:52 POC Glucose (mg/dL) 132 H 45 L 165 H (70-110) mg/dL Iron (50-170) ug/dL % Saturation (12.00-45.00) Ferritin (10.0-291.0) ng/mL 08/15/22 08/15/22 08/16/22 Range/Units 20:10 23:21 05:36 POC Glucose (mg/dL) 175 H 115 H 251 H (70-110) mg/dL Iron (50-170) ug/dL % Saturation (12.00-45.00) Ferritin (10.0-291.0) ng/mL 08/16/22 Range/Units 06:04 POC Glucose (mg/dL) 282 H (70-110) mg/dL Iron (50-170) ug/dL % Saturation (12.00-45.00) Ferritin (10.0-291.0) ng/mL Assessment and Plan Plan: Assessment: 1. End-stage renal disease maintained on hemodialysis on Monday schedule. 2. Hypertension with chronic kidney disease. Blood pressures labile. Currently controlled. 3. Brittle diabetes mellitus. 4. Hyperkalemia secondary to chronic kidney disease and hyperglycemia. Expect improvement postdialysis. 5. Volume overload. Improved postoperative hydration. 6. Anemia of chronic kidney disease. Iron deficiency noted. 7. Chronic diastolic CHF with pericardial effusion. 8. 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 Plan: Hemodialysis tomorrow. Home anti-hypertensives resumed. Avoid ACEi/ARB, aldactone due to risk of hyperkalemia. Avoid hydralazine/minoxidil due to pericardial effusion. Add IV iron. Hold antihypertensives for systolic blood pressure less than 120. Patient has been advised to monitor blood pressure closely at home and to hold antihypertensives for systolic blood pressure less than 120.
[2022-08-16 10:42] LABS: Anisocytosis Slight; Basophils % (A) 1 %; Eosinophils # (A) 0.1 k/uL (0-0.7); Eosinophils % (A) 3 %; HCT 21.8 % (34.0-46.0); HGB 7.3 gm/dL (11.4-16.0); Lymphocytes # (A) 0.7 k/uL (1.0-4.8); Lymphocytes % (A) 17 %; MCH 29.2 pg (25.0-35.0); MCHC 33.6 g/dL (31.0-37.0); MCV 86.8 fL (80.0-100.0); Mean Platelet Volume 9.3; Monocytes # (A) 0.3 k/uL (0-1.0); Monocytes % (A) 6 %; Neutrophils % (A) 70 %; Platelet Count 178 k/uL (150-450); RBC 2.52 m/uL (3.80-5.40); WBC 4.3 k/uL (3.8-10.6)
[2022-08-16 11:07] LABS: Calcium 8.7 mg/dL (8.4-10.2)
[2022-08-16 11:24] LABS: Potassium 5.3 mmol/L (3.5-5.1)
[2022-08-16 11:32] LABS: Glucose,Whole Blood 122 mg/dL (70-110)
[2022-08-16] MEDS: SODIUM FERRIC GLUCONAT-SUCROSE 125 MG in SODIUM CHLORIDE 0.9% 100 ML IVPB SCH (11:48)
[2022-08-16] MEDS: carvediloL 12.5 MG TAB PO SCH ×2 (11:58→20:57)
[2022-08-16] MEDS: TORSEMIDE 20 MG TAB PO SCH ×2 (11:58→20:57)
[2022-08-16 13:17] LABS: Glucose,Whole Blood 38 mg/dL (70-110)
[2022-08-16] MEDS: DEXTROSE 50% SYRINGE 50 ML IVP PRN (13:22)
[2022-08-16 13:54] LABS: Glucose,Whole Blood 202 mg/dL (70-110)
[2022-08-16 13:54] LABS: Glucose,Whole Blood 171 mg/dL (70-110)
[2022-08-16 16:31] LABS: Glucose,Whole Blood 212 mg/dL (70-110)
[2022-08-16] MEDS: LORazepam 1 MG TAB PO PRN (18:48)
[2022-08-16 20:23] LABS: Glucose,Whole Blood 151 mg/dL (70-110)
[2022-08-16] MEDS: traZODone HCL 50 MG TAB PO PRN (20:57)
[2022-08-16] MEDS: MELATONIN 5 MG TABLET PO SCH (20:57)
--- NOTE | 2022-08-16 23:20 | PN ---
PROGRESS NOTE DATE OF SERVICE: 08/16/2022 CHIEF COMPLAINT: Hypotension and hyperkalemia. HISTORY OF PRESENT ILLNESS: This lady is doing better. Blood pressures have actually come up and are quite good. Blood sugars also have been under fairly good control today. REVIEW OF SYSTEMS: She feels better. She has had no nausea or lightheadedness. PHYSICAL EXAMINATION: CHEST: Clear. CARDIAC: Normal. ABDOMEN: Soft and nontender. IMPRESSION: 1. Hypotension. 2. Hyperkalemia. 3. Stage 5 chronic kidney disease, on dialysis. 4. Poorly-controlled hypertension. 5. Poorly-controlled type 1 insulin-dependent diabetes mellitus. 6. Diabetic retinopathy with blindness. 7. Depression. PLAN: Continue with current management and try to send her home in the next day or 2. MMODL / IJN: [id number] /
[2022-08-16 23:40] LABS: Glucose,Whole Blood 194 mg/dL (70-110)
--- NOTE | 2022-08-16 23:41 | PN ---
PROGRESS NOTE DATE OF SERVICE: 08/15/2022 CHIEF COMPLAINT: Hypotension and hyperkalemia. HISTORY OF PRESENT ILLNESS: This lady is doing fairly well and wants to go home. Her potassium is still slightly over 5. She denies any chest pain, shortness of breath, etc. Her blood pressures are still slightly low, and her sugars are under good control right now. PHYSICAL EXAMINATION: CHEST: Clear. CARDIAC: Normal. ABDOMEN: Soft and nontender. IMPRESSION: 1. Hypotension. 2. Hyperkalemia. 3. Stage 5 chronic kidney disease. 4. Uncontrolled diabetes mellitus. PLAN: She is going to be dialyzed again today and probably will be able to go home today. MMODL / IJN: [id number] /
[2022-08-17 03:43] LABS: Glucose,Whole Blood 397 mg/dL (70-110)
[2022-08-17 05:59] LABS: Glucose,Whole Blood 520 mg/dL (70-110)
[2022-08-17] MEDS: INSULIN DETEMIR (LEVEMIR) 100 UNIT/ML SYR SQ SCH (06:09)
[2022-08-17] MEDS: INSULIN ASPART (NovoLOG) 100 UNIT/ML VIAL SQ SCH ×6 (06:09→17:22)
[2022-08-17] MEDS: CALCIUM ACETATE 667 MG TAB PO SCH ×3 (06:52→17:21)
[2022-08-17] MEDS: PANTOPRAZOLE 40 MG TABLET PO SCH (06:52)
[2022-08-17 07:21] LABS: Glucose,Whole Blood 471 mg/dL (70-110)
[2022-08-17] MEDS: LORazepam 1 MG TAB PO PRN (09:01)
[2022-08-17] MEDS: SODIUM FERRIC GLUCONAT-SUCROSE 125 MG in SODIUM CHLORIDE 0.9% 100 ML IVPB SCH (09:01)
[2022-08-17 10:13] LABS: Anisocytosis Slight; MCH 28.6 pg (25.0-35.0); MCHC 33.5 g/dL (31.0-37.0); MCV 85.3 fL (80.0-100.0); Mean Platelet Volume 9.4; Platelet Count 182 k/uL (150-450); RBC 2.28 m/uL (3.80-5.40); RDW 16.4 % (11.5-15.5); WBC 4.2 k/uL (3.8-10.6)
[2022-08-17 10:19] LABS: HCT 19.5 % (34.0-46.0); HGB 6.5 gm/dL (11.4-16.0)
[2022-08-17 10:21] LABS: Calcium 8.7 mg/dL (8.4-10.2)
[2022-08-17 11:57] LABS: Glucose,Whole Blood 65 mg/dL (70-110)
[2022-08-17 12:24] LABS: Glucose,Whole Blood 74 mg/dL (70-110)
[2022-08-17] MEDS: cloNIDine HCL 0.1 MG TAB PO SCH ×3 (14:12→22:53)
[2022-08-17 14:19] LABS: Glucose,Whole Blood 65 mg/dL (70-110)
[2022-08-17] MEDS ORDERED: DESMOPRESSIN ACETATE 14 MCG in SODIUM CHLORIDE 0.9% 50 ML IVPB ONE (14:27)
--- NOTE | 2022-08-17 14:27 | P.PN ---
Subjective Patient is seen in follow-up for end-stage renal disease. She is maintained on hemodialysis on Monday schedule. Completed hemodialysis with 4 L ultrafiltration this morning. Scheduled to receive blood today. No active bleeding. Vital signs are stable. General: No acute distress. HEENT: Head exam is unremarkable. LUNGS: No audible rhonchi or wheezes. HEART: Rate and Rhythm are regular. ABDOMEN: No distention. EXTREMITITES: No edema. Objective - Vital Signs Vital signs: Vital Signs Temp 96.6 F L 08/17/22 12:51 Pulse 80 08/17/22 12:51 Resp 18 08/17/22 12:51 BP 153/89 08/17/22 12:51 Pulse Ox 93 L 08/17/22 11:20 FiO2 Intake & Output 08/16/22 08/17/22 08/17/22 18:59 06:59 18:59 Intake Total 437 400 Output Total 4400 Balance 437 -4000 Weight 47.2 kg 46.5 kg Intake: Intake, IV Titration 200 Amount Sodium Ferric Gluconat- 200 Sucrose 125 mg In Sodium Chloride 0.9% 100 ml @ 100 mls/hr IVPB DAILY [facility] Rx#:[id number] Oral 237 Hemodialysis 400 Output: Urine 0 Hemodialysis 4400 Other: Voiding Method Toilet Toilet # Voids 1 # Bowel Movements 1 0 - Labs CBC & Chem 7: 08/17/22 09:19 08/17/22 09:19 Labs: Abnormal Lab Results - Last 24 Hours (Table) 08/16/22 08/16/22 08/16/22 Range/Units 16:26 20:14 23:38 RBC (3.80-5.40) m/uL Hgb (11.4-16.0) gm/dL Hct (34.0-46.0) % RDW (11.5-15.5) % Sodium (137-145) mmol/L Chloride (98-107) mmol/L BUN (7-17) mg/dL Creatinine (0.52-1.04) mg/dL Glucose (74-99) mg/dL POC Glucose (mg/dL) 212 H 151 H 194 H (70-110) mg/dL Crossmatch 08/17/22 08/17/22 08/17/22 Range/Units 03:41 05:58 07:19 RBC (3.80-5.40) m/uL Hgb (11.4-16.0) gm/dL Hct (34.0-46.0) % RDW (11.5-15.5) % Sodium (137-145) mmol/L Chloride (98-107) mmol/L BUN (7-17) mg/dL Creatinine (0.52-1.04) mg/dL Glucose (74-99) mg/dL POC Glucose (mg/dL) 397 H 520 H 471 H (70-110) mg/dL Crossmatch 08/17/22 08/17/22 08/17/22 Range/Units 09:19 09:19 11:03 RBC 2.28 L (3.80-5.40) m/uL Hgb 6.5 L* (11.4-16.0) gm/dL Hct 19.5 L* (34.0-46.0) % RDW 16.4 H (11.5-15.5) % Sodium 136 L (137-145) mmol/L Chloride 95 L (98-107) mmol/L BUN 44 H (7-17) mg/dL Creatinine 5.41 H (0.52-1.04) mg/dL Glucose 188 H (74-99) mg/dL POC Glucose (mg/dL) (70-110) mg/dL Crossmatch See Detail 08/17/22 08/17/22 Range/Units 11:54 14:15 RBC (3.80-5.40) m/uL Hgb (11.4-16.0) gm/dL Hct (34.0-46.0) % RDW (11.5-15.5) % Sodium (137-145) mmol/L Chloride (98-107) mmol/L BUN (7-17) mg/dL Creatinine (0.52-1.04) mg/dL Glucose (74-99) mg/dL POC Glucose (mg/dL) 65 L 65 L (70-110) mg/dL Crossmatch Assessment and Plan Plan: Assessment: 1. End-stage renal disease maintained on hemodialysis on Monday schedule. 2. Hypertension with chronic kidney disease. Blood pressures labile. Currently stable. 3. Brittle diabetes mellitus. 4. Hyperkalemia secondary to chronic kidney disease and hyperglycemia. Improved postdialysis. 5. Volume overload. Improved post ultrafiltration. 6. Anemia of chronic kidney disease. Iron deficiency noted. Receiving IV iron. Also scheduled to receive blood today. 7. Chronic diastolic CHF with pericardial effusion. 8. 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 Plan: Hemodialysis Monday. Avoid ACEi/ARB, aldactone due to risk of hyperkalemia. Avoid hydralazine/minoxidil due to pericardial effusion. Add Aranesp. DDAVP IV 1 dose today. Hold antihypertensives for systolic blood pressure less than 120. Patient has been advised to monitor blood pressure closely at home and to hold antihypertensives for systolic blood pressure less than 120.
[2022-08-17] MEDS: ATORVASTATIN 40 MG TAB PO SCH (15:06)
[2022-08-17] MEDS: buPROPion SR 150 MG TABLET.ER PO SCH ×2 (15:07→20:52)
[2022-08-17] MEDS: ASPIRIN 81 MG PO SCH (15:07)
[2022-08-17] MEDS: CYANOCOBALAMIN 500 MCG TAB PO SCH (15:08)
[2022-08-17] MEDS: carvediloL 12.5 MG TAB PO SCH ×2 (15:08→20:52)
[2022-08-17] MEDS: ESCITALOPRAM 20 MG TAB PO SCH (15:08)
[2022-08-17] MEDS: DULoxetine HCL 30 MG CAPSULE.DR PO SCH (15:08)
[2022-08-17] MEDS: TORSEMIDE 20 MG TAB PO SCH ×2 (15:09→20:52)
[2022-08-17 15:25] LABS: Glucose,Whole Blood 88 mg/dL (70-110)
[2022-08-17] MEDS ORDERED: DARBEPOETIN ALFA 40 MCG/0.4 ML SYRINGE SQ SCH (16:00)
[2022-08-17 16:51] LABS: Glucose,Whole Blood 168 mg/dL (70-110)
[2022-08-17 19:57] LABS: Glucose,Whole Blood 109 mg/dL (70-110)
[2022-08-17] MEDS: MELATONIN 5 MG TABLET PO SCH (20:52)
[2022-08-17] MEDS: ACETAMINOPHEN TAB 325 MG TAB PO PRN (22:52)
[2022-08-17] MEDS: traZODone HCL 50 MG TAB PO PRN (22:53)
[2022-08-18 03:08] LABS: Glucose,Whole Blood 580 mg/dL (70-110)
[2022-08-18] MEDS: ONDANSETRON 4 MG TAB PO PRN ×2 (04:03→16:45)
[2022-08-18 05:21] LABS: Glucose,Whole Blood >600 mg/dL (70-110)
[2022-08-18] MEDS: INSULIN ASPART (NovoLOG) 100 UNIT/ML VIAL SQ SCH ×6 (05:33→17:00)
[2022-08-18] MEDS: INSULIN DETEMIR (LEVEMIR) 100 UNIT/ML SYR SQ SCH (05:33)
[2022-08-18 05:51] LABS: Anisocytosis Slight; Basophils % (A) 1 %; Eosinophils # (A) 0.2 k/uL (0-0.7); Eosinophils % (A) 4 %; HCT 27.5 % (34.0-46.0); Hypochromasia Marked; Lymphocytes # (A) 0.6 k/uL (1.0-4.8); Lymphocytes % (A) 16 %; MCH 28.9 pg (25.0-35.0); MCHC 31.3 g/dL (31.0-37.0); MCV 92.3 fL (80.0-100.0); Mean Platelet Volume 9.9; Monocytes # (A) 0.2 k/uL (0-1.0); Monocytes % (A) 5 %; Neutrophils # (A) 2.7 k/uL (1.3-7.7); Neutrophils % (A) 73 %; Platelet Count 185 k/uL (150-450); RBC 2.97 m/uL (3.80-5.40); RDW 16.5 % (11.5-15.5); WBC 3.8 k/uL (3.8-10.6)
[2022-08-18 06:05] LABS: HGB 8.6 gm/dL (11.4-16.0)
[2022-08-18 07:44] LABS: Glucose,Whole Blood >600 mg/dL (70-110)
[2022-08-18 07:56] LABS: Calcium 8.4 mg/dL (8.4-10.2)
[2022-08-18 07:58] LABS: Potassium 7.6 mmol/L (3.5-5.1)
[2022-08-18] MEDS ORDERED: INSULIN REGULAR 100 UNIT/ML VIAL (IV) IV ONE (08:06)
[2022-08-18] MEDS ORDERED: INSULIN ASPART (NovoLOG) 100 UNIT/ML VIAL SQ ONE (08:10)
[2022-08-18] MEDS: cloNIDine HCL 0.1 MG TAB PO SCH ×2 (08:27→14:29)
[2022-08-18] MEDS: carvediloL 12.5 MG TAB PO SCH ×2 (08:27→21:00)
[2022-08-18] MEDS ORDERED: SODIUM BICARB 8.4% 50 ML SYR (1 MEQ/ML) ONE ×2 (08:45→08:47)
[2022-08-18] MEDS ORDERED: SODIUM BICARB 8.4% 50 ML SYR (1 MEQ/ML) IV STA (08:46)
[2022-08-18 08:50] LABS: Glucose,Whole Blood 506 mg/dL (70-110)
[2022-08-18] MEDS ORDERED: CALCIUM GLUCONATE IN NACL 1 GM in SALINE 1 100ML.BAG IVPB ONE (09:00)
[2022-08-18 09:54] LABS: Glucose,Whole Blood 191 mg/dL (70-110)
[2022-08-18 10:01] LABS: Potassium 5.5 mmol/L (3.5-5.1)
[2022-08-18] MEDS ORDERED: SODIUM CHLORIDE 0.9% 500 ML 250 ML IV ONE (10:09)
[2022-08-18] MEDS ORDERED: MIDODRINE 5 MG TAB PO ONE (10:30)
[2022-08-18] MEDS: DEXTROSE 50% SYRINGE 50 ML IVP PRN ×4 (10:51→19:29)
[2022-08-18 10:54] LABS: Glucose,Whole Blood 69 mg/dL (70-110)
[2022-08-18] MEDS: CALCIUM ACETATE 667 MG TAB PO SCH ×3 (10:56→16:45)
[2022-08-18] MEDS: SODIUM FERRIC GLUCONAT-SUCROSE 125 MG in SODIUM CHLORIDE 0.9% 100 ML IVPB SCH (11:02)
[2022-08-18 11:13] LABS: Glucose,Whole Blood 147 mg/dL (70-110)
--- NOTE | 2022-08-18 12:00 | P.CRDCN ---
History of Present Illness Consult date: 08/18/22 History of present illness: HISTORY OF PRESENT ILLNESS: This is a 31-year-old female with a past medical history significant for end- stage renal disease on hemodialysis, diabetes, and hypertension. We have been asked to see the patient in consultation for bradycardia and hypotension. Patient examined at the bedside. Patient presented to the hospital secondary to hypotension after taking her blood pressure medications at home. This morning t he patient was found to be hypotensive and bradycardic. Her potassium level was 7.6. An A-Team was called this morning and hence cardiology consultation was placed. At the time of examination, patient is maintaining sinus bradycardia on the monitor with heart rate in the 50s. Systolic blood pressure 80s to 90s. * EKG reveals sinus mechanism with no signs of acute ischemia * Laboratory data: WBC 3.8. Hemoglobin 8.6. Platelet count 185. Sodium 124. Potassium 7.6. BUN 55. Creatinine 4.00. Blood sugar 869 * Current home cardiac medications include carvedilol 25 mg twice a day, Demadex 20 mg twice a day, Procardia 60 mg twice a day, Lipitor 40 mg daily, aspirin 81 mg daily * Most recent echocardiogram obtained in July 2022 revealed ejection fraction 55-60% REVIEW OF SYSTEMS: At the time of my exam: CONSTITUTIONAL: Denies fever or chills. HEENT: Denies blurred vision, vision changes, or eye pain. Denies hemoptysis CARDIOVASCULAR: Denies chest pain. Denies orthopnea. Denies PND. Denies palpitations RESPIRATORY: Denies shortness of breath. GASTROINTESTINAL: Denies abdominal pain. Denies nausea or vomiting. HEMATOLOGIC: Denies bleeding disorders. GENITOURINARY: Denies any blood in urine. SKIN: Denies pruitis. Denies rash. PHYSICAL EXAM: VITAL SIGNS: Reviewed. GENERAL: Well-developed in no acute distress. HEENT: Head is normocephalic. Pupils are equal, round. Sclerae anicteric. Mucous membranes of the mouth are moist. Neck supple. No JVD or thyromegaly LUNGS: Respirations even and unlabored. Lungs essentially clear to auscultation bilaterally. HEART: Bradycardic. Regular rate and rhythm. S1 and S2 heard. ABDOMEN: Soft. Nondistended. Nontender. EXTREMITIES: Normal range of motion. No clubbing or cyanosis. Peripheral pulses intact. No lower extremity edema NEUROLOGIC: Awake and alert. Oriented x 3. ASSESSMENT: Hypotension Bradycardia, likely secondary to hyperkalemia and medications History of hypertension End-stage renal disease on hemodialysis Diabetes Hyperglycemia PLAN: Treatment of hyperkalemia per nephrology Patient being moved to ICU for closer monitoring Hold antihypertensive medications until heart rate and blood pressure improve Further recommendations pending patient course Nurse practitioner note has been reviewed by physician. Signing provider agrees with the documented findings, assessment, and plan of care. Past Medical History Past Medical History: CVA/TIA, Diabetes Mellitus, Dialysis, Eye Disorder, Hypertension, Renal Disease Additional Past Medical History / Comment(s): cardiac arrest, respiratory failure requiring mechanical ventilation, ESRD with hemodialysis M/W/F, IDDM type 1, DKA, neuropathy bilateral legs/feet, diabetic retinopathy/legally blind, RLS, gastritis, severe hypokalemia, fluid retention in abdomin/legs. History of Any Multi-Drug Resistant Organisms: None Reported Past Surgical History: Appendectomy, Section, Cholecystectomy Additional Past Surgical History / Comment(s): fistula left arm Past Anesthesia/Blood Transfusion Reactions: No Reported Reaction Additional Past Anesthesia/Blood Transfusion Reaction / Comment(s): Last PRBC transfusion 07/27/22 Past Psychological History: Anxiety, Depression Additional Psychological History / Comment(s): Pt resides with her father and pt's 3 children. Pt gets to dialysis by grandparents/family or cab. Smoking Status: Never smoker Past Alcohol Use History: None Reported Past Drug Use History: None Reported - Past Family History Mother History Unknown: Yes Family Medical History: Cancer, Hypertension Additional Family Medical History / Comment(s): Thyroid cancer, bipolar Father History Unknown: Yes Family Medical History: Seizure Disorder Additional Family Medical History / Comment(s): Epilepsy Medications and Allergies Home Medications Medication Instructions Recorded Confirmed Type carvediloL [Coreg] 25 mg PO BID 04/03/21 08/14/22 History Escitalopram [Lexapro] 20 mg PO DAILY 04/17/21 08/14/22 History Glucagon Emergency Kit 1 mg IM ONCE PRN #1 kit 06/15/21 08/14/22 Rx Cyanocobalamin [Vitamin B-12] 1,000 mcg PO DAILY #60 tab 09/06/21 08/14/22 Rx Atorvastatin [Lipitor] 40 mg PO DAILY 30 Days #30 tab 10/13/21 08/14/22 Rx Calcium Acetate [PhosLo] 667 mg PO TID-W/MEALS 30 Days #90 10/13/21 08/14/22 Rx tab Aspirin 81 mg PO DAILY 12/06/21 08/14/22 History NIFEdipine XL [Procardia XL] 60 mg PO BID 12/06/21 08/14/22 History LORazepam [Ativan] 1 mg PO TID PRN #90 tab 12/09/21 08/14/22 Rx hydrOXYzine HCL [Atarax] 25 mg PO TID PRN #90 tab 12/09/21 08/14/22 Rx Melatonin [Melatonin Dissolving 10 mg PO HS 12/21/21 08/14/22 History Tablet] Lidocaine-Prilocaine Cream [Emla 1 applic TOPICAL MOWEFR PRN 02/09/22 08/14/22 History Cream 2.5%/2.5%] buPROPion SR [Wellbutrin SR] 150 mg PO BID 02/09/22 08/14/22 History traZODone HCL [Desyrel] 50 mg PO HS PRN #30 tab 04/19/22 08/14/22 Rx DULoxetine HCL [Cymbalta] 30 mg PO DAILY 06/19/22 08/14/22 History Ondansetron [Zofran] 4 mg PO TID PRN 06/19/22 08/14/22 History Pantoprazole Sodium [Protonix] 20 mg PO DAILY 06/19/22 08/14/22 History Torsemide [Demadex] 20 mg PO BID 06/19/22 08/14/22 History rOPINIRole HCL [Requip] 1 mg PO TID 06/19/22 08/14/22 History Darbepoetin Tate [Aranesp] 40 mcg SQ Q7D each 07/02/22 08/14/22 Rx Insulin Detemir (Levemir) [Levemir] 12 unit SQ DAILY@0700 #30 each 07/02/22 08/14/22 Rx Albuterol Inhaler [Ventolin Hfa 2 puff INHALATION RT-QID PRN 07/11/22 08/14/22 History Inhaler] Insulin Aspart [NovoLOG Flexpen] 6 units SQ AC-TID 07/11/22 08/14/22 History cloNIDine HCL [Catapres] 0.3 mg PO TID #90 tab 07/19/22 08/14/22 Rx Ergocalciferol (Vitamin D2) 1,250 mcg PO Q30D 08/14/22 08/14/22 History [Drisdol (50,000 Iu)] Allergies Allergy/AdvReac Type Severity Reaction Status Date / Time Fish Containing Products Allergy Rash/Hives Verified 08/14/22 13:46 [Fish] iodine Allergy Anaphylaxis Verified 08/14/22 13:46 Physical Exam Vitals: Vital Signs Temp Pulse Pulse Resp BP BP Pulse Ox 08/18/22 10:30 50 L 36 H 90/57 100 08/18/22 10:20 50 L 33 H 117/66 98 08/18/22 10:10 50 L 30 H 79/50 100 08/18/22 10:00 98.0 F 51 L 26 H 79/50 99 08/18/22 09:50 51 L 28 H 08/18/22 09:49 51 L 26 H 94/53 100 08/18/22 08:16 100 08/18/22 06:30 46 L 16 91/52 96 08/18/22 05:30 47 L 16 95/55 99 08/18/22 05:00 50 L 98/50 08/18/22 04:00 97.9 F 69 16 111/61 91 L 08/18/22 02:00 82 18 08/18/22 00:00 97.9 F 82 18 167/91 91 L 08/17/22 20:43 97.9 F 83 18 169/85 92 L 08/17/22 20:00 97.9 F 83 18 169/85 92 L 08/17/22 17:39 97.8 F 77 16 168/84 97 08/17/22 17:19 98.1 F 82 16 156/93 95 08/17/22 17:12 98.0 F 81 18 167/90 96 08/17/22 15:00 98.8 F 79 16 145/80 99 08/17/22 12:51 96.6 F L 80 18 153/89 Intake and Output 08/17/22 08/18/22 08/18/22 22:59 06:59 14:59 Intake Total 790 240 240 Output Total 0 Balance 790 240 240 Intake: Intake, IV Titration 240 Amount Sodium Ferric Gluconat- 240 Sucrose 125 mg In Sodium Chloride 0.9% 100 ml @ 100 mls/hr IVPB DAILY [facility] Rx#:[id number] Oral 480 240 Blood Product 310 Rc As-1 Unit 310 [id number] Output: Urine 0 Other: Voiding Method Toilet Toilet # Voids 0 0 # Bowel Movements 0 1 Weight 50.5 kg 50.5 kg Results 08/18/22 05:29 08/18/22 09:30 CBC 08/18/22 Range/Units 05:29 WBC 3.8 (3.8-10.6) k/uL RBC 2.97 L (3.80-5.40) m/uL Hgb 8.6 L D (11.4-16.0) gm/dL Hct 27.5 L (34.0-46.0) % Plt Count 185 (150-450) k/uL Comprehensive Metabolic Panel 08/18/22 08/18/22 Range/Units 05:29 09:30 Sodium 124 L (137-145) mmol/L Potassium 7.6 H* 5.5 H (3.5-5.1) mmol/L Chloride 89 L (98-107) mmol/L Carbon Dioxide 17 L (22-30) mmol/L BUN 55 H (7-17) mg/dL Creatinine 4.00 H (0.52-1.04) mg/dL Glucose 869 H* 280 H (74-99) mg/dL Calcium 8.4 (8.4-10.2) mg/dL Current Medications Generic Name Dose Route Start Last Admin Trade Name Freq PRN Reason Stop Dose Admin Acetaminophen 650 mg 08/17/22 17:20 08/17/22 22:52 Acetaminophen Tab 325 Mg Tab PO 650 mg Q6HR PRN Administration Fever and/ or Pain Albuterol Sulfate 2 puff 08/14/22 19:32 Albuterol Hfa Inhaler INHALATION RT-QID PRN Shortness Of Breath Aspirin 81 mg 08/15/22 09:00 08/17/22 15:07 Aspirin 81 Mg PO 81 mg DAILY [facility] Administration Atorvastatin Calcium 40 mg 08/15/22 09:00 08/17/22 15:06 Atorvastatin 40 Mg Tab PO 40 mg DAILY [facility] Administration Bupropion HCl 150 mg 08/14/22 21:00 08/17/22 20:52 Bupropion Sr 150 Mg Tablet.Er PO 150 mg BID [facility] Administration Calcium Acetate 667 mg 08/15/22 07:30 08/18/22 10:56 Calcium Acetate 667 Mg Tab PO Not Given TID-W/MEALS [facility] Carvedilol 25 mg 08/14/22 21:00 08/18/22 08:27 Carvedilol 12.5 Mg Tab PO Not Given BID [facility] Clonidine 0.3 mg 08/14/22 22:00 08/18/22 08:27 Clonidine Hcl 0.1 Mg Tab PO Not Given TID [facility] Clonidine 0.1 mg 08/15/22 18:46 08/15/22 18:50 Clonidine Hcl 0.1 Mg Tab PO 0.1 mg Q8HR PRN Administration Blood Pressure - High Cyanocobalamin 1,000 mcg 08/15/22 09:00 08/17/22 15:08 Cyanocobalamin 500 Mcg Tab PO 1,000 mcg DAILY [facility] Administration Darbepoetin Tate 40 mcg 08/17/22 16:00 08/17/22 17:16 Darbepoetin Tate 40 Mcg/0.4 Ml Syringe SQ 40 mcg Q7D [facility] Administration Dextrose/Water 25 ml 08/15/22 17:16 08/18/22 10:51 Dextrose 50% Syringe 50 Ml IVP 25 ml PER PROTOCOL PRN Administration Hypoglycemia Protocol Dextrose/Water 50 ml 08/15/22 17:16 08/16/22 13:22 Dextrose 50% Syringe 50 Ml IVP 50 ml PER PROTOCOL PRN Administration Hypoglycemia Protocol Duloxetine HCl 30 mg 08/15/22 09:00 08/17/22 15:08 Duloxetine Hcl 30 Mg Capsule.Dr PO 30 mg DAILY [facility] Administration Ergocalciferol 1,250 mcg 08/27/22 09:00 Ergocalciferol 1,250 Mcg (50,000 Iu) Capsule PO Q30D [facility] Escitalopram Oxalate 20 mg 08/15/22 09:00 08/17/22 15:08 Escitalopram 20 Mg Tab PO 20 mg DAILY [facility] Administration Hydroxyzine HCl 25 mg 08/14/22 19:32 08/17/22 05:51 Hydroxyzine Hcl 25 Mg Tab PO 25 mg TID PRN Administration Itching Ferric Sodium Gluconate 125 mg 110 mls @ 100 mls/hr 08/16/22 11:00 08/18/22 11:02 / Sodium Chloride IVPB 08/19/22 11:01 100 mls/hr DAILY [facility] Administration Insulin Aspart 6 unit 08/15/22 07:30 08/18/22 05:33 Insulin Aspart (Novolog) 100 Unit/Ml Vial SQ 6 unit AC-TID [facility] Administration Insulin Aspart 0 unit 08/15/22 07:30 08/18/22 05:33 Insulin Aspart (Novolog) 100 Unit/Ml Vial SQ 6 unit AC-TID [facility] Administration Protocol Insulin Detemir 12 unit 08/15/22 07:00 08/18/22 05:33 Insulin Detemir (Levemir) 100 Unit/Ml Syr SQ 12 unit DAILY@0700 [facility] Administration Lorazepam 1 mg 08/14/22 19:32 08/17/22 09:01 Lorazepam 1 Mg Tab PO 1 mg TID PRN Administration Agitation Melatonin 10 mg 08/14/22 21:00 08/17/22 20:52 Melatonin 5 Mg Tablet PO 10 mg HS [facility] Administration Nifedipine 60 mg 08/14/22 21:00 08/18/22 08:27 Nifedipine Xl 60 Mg Tab.Er.24 PO Not Given BID [facility] Ondansetron HCl 4 mg 08/14/22 19:32 08/18/22 04:03 Ondansetron 4 Mg Tab PO 4 mg TID PRN Administration Nausea Pantoprazole Sodium 40 mg 08/15/22 07:30 08/17/22 06:52 Pantoprazole 40 Mg Tablet PO 40 mg DAILY@0730 [facility] Administration Ropinirole HCl 1 mg 08/14/22 22:00 08/17/22 22:53 Ropinirole Hcl 1 Mg Tab PO 1 mg TID [facility] Administration Torsemide 20 mg 08/14/22 21:00 08/17/22 20:52 Torsemide 20 Mg Tab PO 20 mg BID [facility] Administration Trazodone HCl 50 mg 08/14/22 19:32 08/17/22 22:53 Trazodone Hcl 50 Mg Tab PO 50 mg HS PRN Administration Insomnia Intake and Output 08/17/22 08/18/22 08/18/22 22:59 06:59 14:59 Intake Total 790 240 240 Output Total 0 Balance 790 240 240 Intake: Intake, IV Titration 240 Amount Sodium Ferric Gluconat- 240 Sucrose 125 mg In Sodium Chloride 0.9% 100 ml @ 100 mls/hr IVPB DAILY [facility] Rx#:[id number] Oral 480 240 Blood Product 310 Rc As-1 Unit 310 [id number] Output: Urine 0 Other: Voiding Method Toilet Toilet # Voids 0 0 # Bowel Movements 0 1 Weight 50.5 kg 50.5 kg Patient Weight 08/19/22 06:59 Weight 50.5 kg 08/18/22 05:29 08/18/22 09:30
[2022-08-18 12:09] LABS: Calcium 9.6 mg/dL (8.4-10.2); Potassium 5.6 mmol/L (3.5-5.1)
--- NOTE | 2022-08-18 12:23 | P.PN ---
Subjective Patient is seen in follow-up for end-stage renal disease. She is maintained on hemodialysis on Monday schedule. Blood sugar over 800 this morning and potassium 7.6. Improved with insulin. Resting in bed. No active complaints. Blood pressure on the lower side. Vital signs are stable. General: No acute distress. HEENT: Head exam is unremarkable. LUNGS: No audible rhonchi or wheezes. HEART: Rate and Rhythm are regular. ABDOMEN: No distention. EXTREMITITES: No edema. Objective - Vital Signs Vital signs: Vital Signs Temp 98.0 F 08/18/22 10:00 Pulse 50 L 08/18/22 10:30 Resp 36 H 08/18/22 10:30 BP 90/57 08/18/22 10:30 Pulse Ox 100 08/18/22 10:30 FiO2 Intake & Output 08/17/22 08/18/22 08/18/22 18:59 06:59 18:59 Intake Total 640 790 240 Output Total 4400 0 Balance -3760 790 240 Weight 46.5 kg 50.5 kg 50.5 kg Intake: Intake, IV Titration 240 Amount Sodium Ferric Gluconat- 240 Sucrose 125 mg In Sodium Chloride 0.9% 100 ml @ 100 mls/hr IVPB DAILY [facility] Rx#:[id number] Oral 240 240 240 Blood Product 0 310 Rc As-1 Unit 0 310 [id number] Hemodialysis 400 Output: Urine 0 0 Hemodialysis 4400 Other: Voiding Method Toilet Toilet # Voids 0 0 # Bowel Movements 0 1 - Labs CBC & Chem 7: 08/18/22 05:29 08/18/22 11:42 Labs: Abnormal Lab Results - Last 24 Hours (Table) 08/17/22 08/17/22 08/17/22 Range/Units 11:03 14:15 16:49 RBC (3.80-5.40) m/uL Hgb (11.4-16.0) gm/dL Hct (34.0-46.0) % RDW (11.5-15.5) % Lymphocytes # (1.0-4.8) k/uL Sodium (137-145) mmol/L Potassium (3.5-5.1) mmol/L Chloride (98-107) mmol/L Carbon Dioxide (22-30) mmol/L BUN (7-17) mg/dL Creatinine (0.52-1.04) mg/dL Glucose (74-99) mg/dL POC Glucose (mg/dL) 65 L 168 H (70-110) mg/dL Crossmatch See Detail 08/18/22 08/18/22 08/18/22 Range/Units 03:07 05:19 05:29 RBC 2.97 L (3.80-5.40) m/uL Hgb 8.6 L D (11.4-16.0) gm/dL Hct 27.5 L (34.0-46.0) % RDW 16.5 H (11.5-15.5) % Lymphocytes # 0.6 L (1.0-4.8) k/uL Sodium (137-145) mmol/L Potassium (3.5-5.1) mmol/L Chloride (98-107) mmol/L Carbon Dioxide (22-30) mmol/L BUN (7-17) mg/dL Creatinine (0.52-1.04) mg/dL Glucose (74-99) mg/dL POC Glucose (mg/dL) 580 H >600 H (70-110) mg/dL Crossmatch 08/18/22 08/18/22 08/18/22 Range/Units 05:29 07:42 08:48 RBC (3.80-5.40) m/uL Hgb (11.4-16.0) gm/dL Hct (34.0-46.0) % RDW (11.5-15.5) % Lymphocytes # (1.0-4.8) k/uL Sodium 124 L (137-145) mmol/L Potassium 7.6 H* (3.5-5.1) mmol/L Chloride 89 L (98-107) mmol/L Carbon Dioxide 17 L (22-30) mmol/L BUN 55 H (7-17) mg/dL Creatinine 4.00 H (0.52-1.04) mg/dL Glucose 869 H* (74-99) mg/dL POC Glucose (mg/dL) >600 H 506 H (70-110) mg/dL Crossmatch 08/18/22 08/18/22 08/18/22 Range/Units 09:30 09:52 10:47 RBC (3.80-5.40) m/uL Hgb (11.4-16.0) gm/dL Hct (34.0-46.0) % RDW (11.5-15.5) % Lymphocytes # (1.0-4.8) k/uL Sodium (137-145) mmol/L Potassium 5.5 H (3.5-5.1) mmol/L Chloride (98-107) mmol/L Carbon Dioxide (22-30) mmol/L BUN (7-17) mg/dL Creatinine (0.52-1.04) mg/dL Glucose 280 H (74-99) mg/dL POC Glucose (mg/dL) 191 H 69 L (70-110) mg/dL Crossmatch 08/18/22 08/18/22 Range/Units 11:12 11:42 RBC (3.80-5.40) m/uL Hgb (11.4-16.0) gm/dL Hct (34.0-46.0) % RDW (11.5-15.5) % Lymphocytes # (1.0-4.8) k/uL Sodium 135 L (137-145) mmol/L Potassium 5.6 H (3.5-5.1) mmol/L Chloride 93 L (98-107) mmol/L Carbon Dioxide (22-30) mmol/L BUN 64 H (7-17) mg/dL Creatinine 4.45 H (0.52-1.04) mg/dL Glucose (74-99) mg/dL POC Glucose (mg/dL) 147 H (70-110) mg/dL Crossmatch Assessment and Plan Plan: Assessment: 1. End-stage renal disease maintained on hemodialysis on Monday schedule. 2. Hypertension with chronic kidney disease. Blood pressures low today. 3. Brittle diabetes mellitus. 4. Hyperkalemia secondary to chronic kidney disease and hyperglycemia. Improved postdialysis and with blood glucose control. 5. Volume overload. Improved post ultrafiltration. 6. Anemia of chronic kidney disease. Iron deficiency noted. Receiving IV iron. Status post blood transfusion and IV DDAVP this admission. On Aranesp. 7. History of pericardial effusion. 8. 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 Plan: Short hemodialysis treatment today without any ultrafiltration. Avoid ACEi/ARB, aldactone due to risk of hyperkalemia. Avoid hydralazine/minoxidil due to pericardial effusion. Hold antihypertensives for systolic blood pressure less than 120. Patient has been advised to monitor blood pressure closely at home and to hold antihypertensives for systolic blood pressure less than 120. Received midodrine and fluid bolus this morning for hypotension. Cocaine to repeat another dose of midodrine this afternoon if systolic blood pressure remains less than 90.
[2022-08-18] MEDS ORDERED: DARBEPOETIN ALFA 40 MCG/0.4 ML SYRINGE SQ SCH (12:45)
[2022-08-18 13:02] LABS: Glucose,Whole Blood 66 mg/dL (70-110)
[2022-08-18] MEDS ORDERED: diphenhydrAMINE 50 MG/ML 1 ML VIAL ONE (13:19)
[2022-08-18] MEDS: diphenhydrAMINE 50 MG/ML 1 ML VIAL IVP PRN ×2 (13:21→22:36)
[2022-08-18 13:28] LABS: Glucose,Whole Blood 113 mg/dL (70-110)
[2022-08-18] MEDS: PANTOPRAZOLE 40 MG TABLET PO SCH (13:28)
[2022-08-18 14:05] LABS: Glucose,Whole Blood 81 mg/dL (70-110)
[2022-08-18] MEDS: ESCITALOPRAM 20 MG TAB PO SCH (14:34)
[2022-08-18] MEDS: CYANOCOBALAMIN 500 MCG TAB PO SCH (14:34)
[2022-08-18] MEDS: DULoxetine HCL 30 MG CAPSULE.DR PO SCH (14:34)
[2022-08-18] MEDS: ACETAMINOPHEN TAB 325 MG TAB PO PRN (14:34)
[2022-08-18] MEDS: TORSEMIDE 20 MG TAB PO SCH ×2 (14:34→21:45)
[2022-08-18] MEDS: buPROPion SR 150 MG TABLET.ER PO SCH ×2 (14:35→21:45)
[2022-08-18] MEDS: ASPIRIN 81 MG PO SCH (14:35)
[2022-08-18] MEDS: ATORVASTATIN 40 MG TAB PO SCH (14:35)
[2022-08-18 14:55] LABS: Glucose,Whole Blood 108 mg/dL (70-110)
[2022-08-18 15:24] LABS: Glucose,Whole Blood 150 mg/dL (70-110)
--- NOTE | 2022-08-18 15:53 | P.CNPUL ---
History of Present Illness Consult date: 08/18/22 Requesting physician: Roque Buckner Reason for consult: dyspnea, hypoxemia, pleural effusion, abnormal CXR/CT, other Chief complaint: Hypotension, shortness of breath, elevated potassium. History of present illness: Pulmonary/critical care consult dated 08/18/2022. 31-year-old female who presents to the emergency department on August 14. She presented with low blood pressure. The patient is well-known to our service, and has a history of end-stage renal disease. She does have hemodialysis, 3 times a week, typically Monday, Monday, and Monday. She was seen in the emergency department, for a low blood pressure, in the 80s systolic. She denies any chest pain or palpitations. She also denied any difficulty breathing. She was seen in the ER, and admitted to the hospital. The patient has really had 3 admissions to the hospital this year already, and in 2021, had 21 admissions to this hospital. Today, a cousin with low blood pressure, elevated potassium, and shortness of breath, she was transferred from the general medical floor, to the intensive care unit. She had hemodialysis today, and 2 L was removed. She was initially on 6 L of oxygen, and his been weaned down to 4 L. She's not receiving any IV fluids. Also, earlier today, her potassium level was 7.6, and today, it before dialysis, it was 5.6. She's feeling much better. Also, her blood pressure is much improved, running 131/77, when last checked. Current labs include a white count of 3.8, hemoglobin 8.6, hematocrit 27.5, and a normal platelet count. Sodium 135, potassium 5.6, chlorides 93, CO2 23, anion gap 19, BUN 64, and creatinine 4.45. She has not had a chest x-ray on this admission. Review of Systems REVIEW OF SYSTEMS: CONSTITUTIONAL: Weakness. NEUROLOGIC: [ Negative.] HEENT: [ Negative.] CARDIAC: Hypotension. PULMONARY: Shortness of breath. GI: [Negative.] : Hyperkalemia. RHEUMATOLOGIC: [ Negative.] IMMUNOLOGIC: [ Negative.] ENDOCRINE: [Negative. ] DERMATOLOGIC: [Negative.] Past Medical History Past Medical History: CVA/TIA, Diabetes Mellitus, Dialysis, Eye Disorder, Hypertension, Renal Disease Additional Past Medical History / Comment(s): cardiac arrest, respiratory failur e requiring mechanical ventilation, ESRD with hemodialysis M/W/F, IDDM type 1, DKA, neuropathy bilateral legs/feet, diabetic retinopathy/legally blind, RLS, gastritis, severe hypokalemia, fluid retention in abdomin/legs. History of Any Multi-Drug Resistant Organisms: None Reported Past Surgical History: Appendectomy, Section, Cholecystectomy Additional Past Surgical History / Comment(s): fistula left arm Past Anesthesia/Blood Transfusion Reactions: No Reported Reaction Additional Past Anesthesia/Blood Transfusion Reaction / Comment(s): Last PRBC transfusion 07/27/22 Past Psychological History: Anxiety, Depression Additional Psychological History / Comment(s): Pt resides with her father and pt's 3 children. Pt gets to dialysis by grandparents/family or cab. Smoking Status: Never smoker Past Alcohol Use History: None Reported Past Drug Use History: None Reported - Past Family History Mother History Unknown: Yes Family Medical History: Cancer, Hypertension Additional Family Medical History / Comment(s): Thyroid cancer, bipolar Father History Unknown: Yes Family Medical History: Seizure Disorder Additional Family Medical History / Comment(s): Epilepsy Medications and Allergies Home Medications Medication Instructions Recorded Confirmed Type carvediloL [Coreg] 25 mg PO BID 04/03/21 08/14/22 History Escitalopram [Lexapro] 20 mg PO DAILY 04/17/21 08/14/22 History Glucagon Emergency Kit 1 mg IM ONCE PRN #1 kit 06/15/21 08/14/22 Rx Cyanocobalamin [Vitamin B-12] 1,000 mcg PO DAILY #60 tab 09/06/21 08/14/22 Rx Atorvastatin [Lipitor] 40 mg PO DAILY 30 Days #30 tab 10/13/21 08/14/22 Rx Calcium Acetate [PhosLo] 667 mg PO TID-W/MEALS 30 Days #90 10/13/21 08/14/22 Rx tab Aspirin 81 mg PO DAILY 12/06/21 08/14/22 History NIFEdipine XL [Procardia XL] 60 mg PO BID 12/06/21 08/14/22 History LORazepam [Ativan] 1 mg PO TID PRN #90 tab 12/09/21 08/14/22 Rx hydrOXYzine HCL [Atarax] 25 mg PO TID PRN #90 tab 12/09/21 08/14/22 Rx Melatonin [Melatonin Dissolving 10 mg PO HS 12/21/21 08/14/22 History Tablet] Lidocaine-Prilocaine Cream [Emla 1 applic TOPICAL MOWEFR PRN 02/09/22 08/14/22 History Cream 2.5%/2.5%] buPROPion SR [Wellbutrin SR] 150 mg PO BID 02/09/22 08/14/22 History traZODone HCL [Desyrel] 50 mg PO HS PRN #30 tab 04/19/22 08/14/22 Rx DULoxetine HCL [Cymbalta] 30 mg PO DAILY 06/19/22 08/14/22 History Ondansetron [Zofran] 4 mg PO TID PRN 06/19/22 08/14/22 History Pantoprazole Sodium [Protonix] 20 mg PO DAILY 06/19/22 08/14/22 History Torsemide [Demadex] 20 mg PO BID 06/19/22 08/14/22 History rOPINIRole HCL [Requip] 1 mg PO TID 06/19/22 08/14/22 History Darbepoetin Tate [Aranesp] 40 mcg SQ Q7D each 07/02/22 08/14/22 Rx Insulin Detemir (Levemir) [Levemir] 12 unit SQ DAILY@0700 #30 each 07/02/22 08/14/22 Rx Albuterol Inhaler [Ventolin Hfa 2 puff INHALATION RT-QID PRN 07/11/22 08/14/22 History Inhaler] Insulin Aspart [NovoLOG Flexpen] 6 units SQ AC-TID 07/11/22 08/14/22 History cloNIDine HCL [Catapres] 0.3 mg PO TID #90 tab 07/19/22 08/14/22 Rx Ergocalciferol (Vitamin D2) 1,250 mcg PO Q30D 08/14/22 08/14/22 History [Drisdol (50,000 Iu)] Allergies Allergy/AdvReac Type Severity Reaction Status Date / Time Fish Containing Products Allergy Rash/Hives Verified 08/14/22 13:46 [Fish] iodine Allergy Anaphylaxis Verified 08/14/22 13:46 Physical Exam Osteopathic Statement: *. No significant issues noted on an osteopathic structural exam other than those noted in the History and Physical/Consult. Vitals: Vital Signs Temp Pulse Pulse Resp BP BP Pulse Ox 08/18/22 14:58 97.4 F L 73 16 131/77 08/18/22 14:30 72 21 134/80 100 08/18/22 14:00 70 42 H 118/86 100 08/18/22 13:30 68 24 118/78 96 08/18/22 13:00 66 25 H 109/71 100 08/18/22 12:30 60 29 H 110/74 100 08/18/22 12:00 98.4 F 57 L 46 L 21 98/64 97 08/18/22 11:30 51 L 20 85/56 96 08/18/22 11:00 52 L 18 89/60 98 08/18/22 10:30 50 L 36 H 90/57 100 08/18/22 10:20 50 L 33 H 117/66 98 08/18/22 10:10 50 L 30 H 79/50 100 08/18/22 10:00 98.0 F 51 L 26 H 79/50 99 08/18/22 09:50 51 L 28 H 08/18/22 09:49 51 L 26 H 94/53 100 08/18/22 08:16 100 08/18/22 06:30 46 L 16 91/52 96 08/18/22 05:30 47 L 16 95/55 99 08/18/22 05:00 50 L 98/50 08/18/22 04:00 97.9 F 69 16 111/61 91 L 08/18/22 02:00 82 18 08/18/22 00:00 97.9 F 82 18 167/91 91 L 08/17/22 20:43 97.9 F 83 18 169/85 92 L 08/17/22 20:00 97.9 F 83 18 169/85 92 L 08/17/22 17:39 97.8 F 77 16 168/84 97 08/17/22 17:19 98.1 F 82 16 156/93 95 08/17/22 17:12 98.0 F 81 18 167/90 96 Intake and Output 08/18/22 08/18/22 08/18/22 06:59 14:59 22:59 Intake Total 240 1040 Output Total 2300 Balance 240 -1260 Intake: Intake, IV Titration 240 Amount Sodium Ferric Gluconat- 240 Sucrose 125 mg In Sodium Chloride 0.9% 100 ml @ 100 mls/hr IVPB DAILY [facility] Rx#:[id number] Oral 740 Hemodialysis 300 Output: Urine 0 Hemodialysis 2300 Other: Voiding Method Toilet Toilet # Voids 0 # Bowel Movements 1 Weight 50.5 kg 50.5 kg No acute distress, oriented 3. Seen today in room 264. Currently on 4 L of oxygen. No conversational dyspnea, use of accessory muscles, or any audible wheezing. HEENT examination is grossly unremarkable. Neck supple. Full range of motion. No adenopathy thyromegaly or neck vein distention. Cardiovascular examination reveals regular rhythm rate. S1-S2 normal. No S3 or S4. No discernible murmur noted. Heart rate 73 bpm. Heart sounds are distant. Lungs reveal scattered rhonchi and crackles. Breath sounds equal. No wheezes. 4 L saturation is 98%. Abdomen soft bowel sounds are heard. No masses or tenderness. Extremities are intact. No cyanosis clubbing or edema. Skin is without rash or lesion. Neurologic examination is brief but nonfocal. Results - Laboratory Findings CBC and BMP: 08/18/22 05:29 08/18/22 11:42 PT/INR, D-dimer PT 11.1 sec (9.0-12.0) 08/14/22 10:25 INR 1.1 (<1.2) 08/14/22 10:25 Abnormal lab findings: Abnormal Labs 08/14/22 08/14/22 08/14/22 10:25 10:25 10:25 RBC 2.57 L Hgb 7.3 L Hct 22.2 L RDW 17.0 H Lymphocytes # 0.8 L Sodium 134 L Potassium 5.4 H Chloride 94 L Carbon Dioxide BUN 50 H Creatinine 5.42 H Glucose 179 H POC Glucose (mg/dL) Iron % Saturation Ferritin Alkaline Phosphatase 179 H Troponin I 0.062 H* Total Protein 5.9 L Crossmatch 08/14/22 08/14/22 08/14/22 13:23 16:08 18:37 RBC Hgb Hct RDW Lymphocytes # Sodium Potassium Chloride Carbon Dioxide BUN Creatinine Glucose POC Glucose (mg/dL) 147 H Iron % Saturation Ferritin Alkaline Phosphatase Troponin I 0.062 H* 0.066 H* Total Protein Crossmatch 08/14/22 08/14/22 08/15/22 20:43 21:26 01:50 RBC Hgb Hct RDW Lymphocytes # Sodium 133 L Potassium 5.4 H Chloride 95 L Carbon Dioxide BUN 56 H Creatinine 6.24 H Glucose 299 H POC Glucose (mg/dL) 278 H 348 H Iron % Saturation Ferritin Alkaline Phosphatase Troponin I Total Protein Crossmatch 08/15/22 08/15/22 08/15/22 06:03 07:40 07:40 RBC 2.57 L Hgb 7.7 L Hct 22.3 L RDW 16.2 H Lymphocytes # 0.5 L Sodium 133 L Potassium 5.9 H Chloride 95 L Carbon Dioxide BUN 67 H Creatinine 6.62 H Glucose 290 H POC Glucose (mg/dL) 333 H Iron % Saturation Ferritin Alkaline Phosphatase Troponin I Total Protein Crossmatch 08/15/22 08/15/22 08/15/22 11:29 12:02 14:15 RBC Hgb Hct RDW Lymphocytes # Sodium Potassium Chloride Carbon Dioxide BUN Creatinine Glucose POC Glucose (mg/dL) 151 H 42 L Iron 13 L % Saturation 4.35 L Ferritin 956.0 H Alkaline Phosphatase Troponin I Total Protein Crossmatch 08/15/22 08/15/22 08/15/22 15:40 15:54 16:31 RBC Hgb Hct RDW Lymphocytes # Sodium Potassium Chloride Carbon Dioxide BUN Creatinine Glucose POC Glucose (mg/dL) 36 L 123 H 43 L Iron % Saturation Ferritin Alkaline Phosphatase Troponin I Total Protein Crossmatch 08/15/22 08/15/22 08/15/22 16:50 18:37 18:52 RBC Hgb Hct RDW Lymphocytes # Sodium Potassium Chloride Carbon Dioxide BUN Creatinine Glucose POC Glucose (mg/dL) 132 H 45 L 165 H Iron % Saturation Ferritin Alkaline Phosphatase Troponin I Total Protein Crossmatch 08/15/22 08/15/22 08/16/22 20:10 23:21 05:36 RBC Hgb Hct RDW Lymphocytes # Sodium Potassium Chloride Carbon Dioxide BUN Creatinine Glucose POC Glucose (mg/dL) 175 H 115 H 251 H Iron % Saturation Ferritin Alkaline Phosphatase Troponin I Total Protein Crossmatch 08/16/22 08/16/22 08/16/22 06:04 10:03 10:03 RBC 2.52 L Hgb 7.3 L Hct 21.8 L RDW 16.0 H Lymphocytes # 0.7 L Sodium 133 L Potassium 5.3 H Chloride 92 L Carbon Dioxide BUN 37 H Creatinine 4.72 H Glucose 178 H POC Glucose (mg/dL) 282 H Iron % Saturation Ferritin Alkaline Phosphatase Troponin I Total Protein Crossmatch 08/16/22 08/16/22 08/16/22 11:25 13:16 13:34 RBC Hgb Hct RDW Lymphocytes # Sodium Potassium Chloride Carbon Dioxide BUN Creatinine Glucose POC Glucose (mg/dL) 122 H 38 L 202 H Iron % Saturation Ferritin Alkaline Phosphatase Troponin I Total Protein Crossmatch 08/16/22 08/16/22 08/16/22 13:52 16:26 20:14 RBC Hgb Hct RDW Lymphocytes # Sodium Potassium Chloride Carbon Dioxide BUN Creatinine Glucose POC Glucose (mg/dL) 171 H 212 H 151 H Iron % Saturation Ferritin Alkaline Phosphatase Troponin I Total Protein Crossmatch 08/16/22 08/17/22 08/17/22 23:38 03:41 05:58 RBC Hgb Hct RDW Lymphocytes # Sodium Potassium Chloride Carbon Dioxide BUN Creatinine Glucose POC Glucose (mg/dL) 194 H 397 H 520 H Iron % Saturation Ferritin Alkaline Phosphatase Troponin I Total Protein Crossmatch 08/17/22 08/17/22 08/17/22 07:19 09:19 09:19 RBC 2.28 L Hgb 6.5 L* Hct 19.5 L* RDW 16.4 H Lymphocytes # Sodium 136 L Potassium Chloride 95 L Carbon Dioxide BUN 44 H Creatinine 5.41 H Glucose 188 H POC Glucose (mg/dL) 471 H Iron % Saturation Ferritin Alkaline Phosphatase Troponin I Total Protein Crossmatch 08/17/22 08/17/22 08/17/22 11:03 11:54 14:15 RBC Hgb Hct RDW Lymphocytes # Sodium Potassium Chloride Carbon Dioxide BUN Creatinine Glucose POC Glucose (mg/dL) 65 L 65 L Iron % Saturation Ferritin Alkaline Phosphatase Troponin I Total Protein Crossmatch See Detail 08/17/22 08/18/22 08/18/22 16:49 03:07 05:19 RBC Hgb Hct RDW Lymphocytes # Sodium Potassium Chloride Carbon Dioxide BUN Creatinine Glucose POC Glucose (mg/dL) 168 H 580 H >600 H Iron % Saturation Ferritin Alkaline Phosphatase Troponin I Total Protein Crossmatch 08/18/22 08/18/22 08/18/22 05:29 05:29 07:42 RBC 2.97 L Hgb 8.6 L D Hct 27.5 L RDW 16.5 H Lymphocytes # 0.6 L Sodium 124 L Potassium 7.6 H* Chloride 89 L Carbon Dioxide 17 L BUN 55 H Creatinine 4.00 H Glucose 869 H* POC Glucose (mg/dL) >600 H Iron % Saturation Ferritin Alkaline Phosphatase Troponin I Total Protein Crossmatch 08/18/22 08/18/22 08/18/22 08:48 09:30 09:52 RBC Hgb Hct RDW Lymphocytes # Sodium Potassium 5.5 H Chloride Carbon Dioxide BUN Creatinine Glucose 280 H POC Glucose (mg/dL) 506 H 191 H Iron % Saturation Ferritin Alkaline Phosphatase Troponin I Total Protein Crossmatch 08/18/22 08/18/22 08/18/22 10:47 11:12 11:42 RBC Hgb Hct RDW Lymphocytes # Sodium 135 L Potassium 5.6 H Chloride 93 L Carbon Dioxide BUN 64 H Creatinine 4.45 H Glucose POC Glucose (mg/dL) 69 L 147 H Iron % Saturation Ferritin Alkaline Phosphatase Troponin I Total Protein Crossmatch 08/18/22 08/18/22 08/18/22 13:00 13:26 15:23 RBC Hgb Hct RDW Lymphocytes # Sodium Potassium Chloride Carbon Dioxide BUN Creatinine Glucose POC Glucose (mg/dL) 66 L 113 H 150 H Iron % Saturation Ferritin Alkaline Phosphatase Troponin I Total Protein Crossmatch Assessment and Plan Assessment: Acute hyperkalemia, hyperglycemia, and hypotension, status post acute hemodialysis (08/18/2022), with 2 L removed. End-stage renal disease, currently on Monday, Monday, Monday hemodialysis. History of CVA. History of diabetes mellitus, with diabetic neuropathy and retinopathy. History of hypertension. Prior history of cardiopulmonary arrest. History of restless leg syndrome. Anemia of chronic disease. History of anxiety/depression. Plan: Plan dated 08/18/2022. 31-year-old female seen today in consultation. The patient is currently in the ICU, having been transferred there for her hypotension, and her hyperkalemia as well as hyperglycemia. The patient has had 21 and admissions to this hospital, and 2021, and this is her fourth admission this year already. Currently, the patient's resting comfortably in the ICU. Her most recent potassium is 5.6. She is on 4 L of oxygen, with excellent saturations. Labs, x-rays, medications are reviewed. They're planning to do hemodialysis again tomorrow. Additional recommendations and suggestions are forthcoming. Prognosis is guarded. Time with Patient: Greater than 30
[2022-08-18 16:44] LABS: Glucose,Whole Blood 146 mg/dL (70-110)
[2022-08-18 18:59] LABS: Glucose,Whole Blood 41 mg/dL (70-110)
[2022-08-18 19:24] LABS: Glucose,Whole Blood 65 mg/dL (70-110)
[2022-08-18] MEDS: LORazepam 1 MG TAB PO PRN (21:00)
[2022-08-18] MEDS: MELATONIN 5 MG TABLET PO SCH (21:00)
[2022-08-18 21:51] LABS: Glucose,Whole Blood 183 mg/dL (70-110)
[2022-08-19] MEDS: traZODone HCL 50 MG TAB PO PRN ×2 (00:46→22:15)
[2022-08-19 00:51] LABS: Glucose,Whole Blood 238 mg/dL (70-110)
--- NOTE | 2022-08-19 03:13 | PN ---
PROGRESS NOTE DATE OF SERVICE: 08/17/2022 CHIEF COMPLAINT: Hypotension, history of hypertension, CKD, and diabetes. HISTORY OF PRESENT ILLNESS: This lady is not doing fairly well. Blood sugars are fluctuating as usual. She has had no further chest pain or shortness of breath. Blood sugars today went from 500s in the morning to 65 and then up to 168. PHYSICAL EXAMINATION: GENERAL: She remains chronically ill in appearance. CHEST: Clear. CARDIAC: Normal. ABDOMEN: Soft, nontender. IMPRESSION: 1. Hypotension. 2. Elevated troponin. 3. Poorly-controlled type 1 insulin-dependent diabetes mellitus. 4. History of labile hypertension. 5. Stage 5 chronic kidney disease. PLAN: Continue with rehydration and withholding her antihypertensive medications at this time. MMODL / IJN: [id number] /
[2022-08-19] MEDS: cloNIDine HCL 0.1 MG TAB PO SCH (05:54)
[2022-08-19 06:35] LABS: Anisocytosis Slight; Basophils # (A) 0.1 k/uL (0-0.2); Basophils % (A) 1 %; Eosinophils # (A) 0.3 k/uL (0-0.7); Eosinophils % (A) 6 %; HCT 25.1 % (34.0-46.0); HGB 8.3 gm/dL (11.4-16.0); Lymphocytes # (A) 0.9 k/uL (1.0-4.8); Lymphocytes % (A) 18 %; MCH 28.3 pg (25.0-35.0); Mean Platelet Volume 11.2; Monocytes # (A) 0.2 k/uL (0-1.0); Monocytes % (A) 4 %; Neutrophils # (A) 3.2 k/uL (1.3-7.7); Neutrophils % (A) 68 %; Platelet Count 169 k/uL (150-450); RBC 2.92 m/uL (3.80-5.40); RDW 16.7 % (11.5-15.5); WBC 4.7 k/uL (3.8-10.6)
[2022-08-19 06:42] LABS: MCV 85.9 fL (80.0-100.0)
[2022-08-19 06:45] LABS: Calcium 9.1 mg/dL (8.4-10.2); Potassium 5.5 mmol/L (3.5-5.1)
[2022-08-19 06:50] LABS: Glucose,Whole Blood 334 mg/dL (70-110)
[2022-08-19] MEDS: diphenhydrAMINE 50 MG/ML 1 ML VIAL IVP PRN ×3 (06:50→18:37)
[2022-08-19] MEDS: carvediloL 12.5 MG TAB PO SCH ×3 (06:54→17:16)
[2022-08-19] MEDS: CALCIUM ACETATE 667 MG TAB PO SCH ×3 (06:54→17:17)
[2022-08-19] MEDS: PANTOPRAZOLE 40 MG TABLET PO SCH (06:54)
[2022-08-19] MEDS: INSULIN DETEMIR (LEVEMIR) 100 UNIT/ML SYR SQ SCH (06:54)
[2022-08-19] MEDS: INSULIN ASPART (NovoLOG) 100 UNIT/ML VIAL SQ SCH ×6 (06:54→18:03)
[2022-08-19] MEDS: LORazepam 1 MG TAB PO PRN ×2 (07:41→15:36)
--- NOTE | 2022-08-19 08:43 | PN ---
PROGRESS NOTE SUBJECTIVE: Mrs. Pizano is a lady with end-stage renal disease, who had severe hyperkalemia, bradycardia, and hypotension yesterday. She has had dialysis and once the potassium came down, her heart rate improved and she is doing much better. She is resting comfortably at the time of my evaluation. Her EKG revealed sinus rhythm in the 70s. She is hemodynamically stable. I am recommending that we hold the clonidine altogether and decrease the carvedilol to 12.5 mg b.i.d. She has multiple comorbid conditions in the form of end-stage renal disease on hemodialysis, hypertension, diabetes, and also hypotension related to yesterday's situation, however, she has improved remarkably. OBJECTIVE: VITALS: Stable. Blood pressure is about 118/70, pulse rate is 70, sinus. HEART: S1, S2 heard normally, short systolic murmur noted. LUNGS: Reveal fair air entry. ABDOMEN: Soft. EXTREMITIES: Lower extremities reveal diminished pulses. CENTRAL NERVOUS SYSTEM: No focal deficits. PLAN: I am recommending that we continue current medications, decrease the dose of Coreg and also hold clonidine. Patient can be moved to the telemetry unit or medical floor. MMODL / IJN: [id number] /
--- NOTE | 2022-08-19 10:31 | P.PN ---
Subjective Progress Note Date: 08/19/22 Principal diagnosis: Hyperkalemia, hypotension, hyperglycemia. Pulmonary/critical care consult dated 08/18/2022. 31-year-old female who presents to the emergency department on August 14. She presented with low blood pressure. The patient is well-known to our service, and has a history of end-stage renal disease. She does have hemodialysis, 3 times a week, typically Monday, Monday, and Monday. She was seen in the emergency department, for a low blood pressure, in the 80s systolic. She denies any chest pain or palpitations. She also denied any difficulty breathing. She was seen in the ER, and admitted to the hospital. The patient has really had 3 admissions to the hospital this year already, and in 2021, had 21 admissions to this hospital. Today, a cousin with low blood pressure, elevated potassium, and shortness of breath, she was transferred from the general medical floor, to the intensive care unit. She had hemodialysis today, and 2 L was removed. She was initially on 6 L of oxygen, and his been weaned down to 4 L. She's not receiving any IV fluids. Also, earlier today, her potassium level was 7.6, and today, it before dialysis, it was 5.6. She's feeling much better. Also, her blood pressure is much improved, running 131/77, when last checked. Current labs include a white count of 3.8, hemoglobin 8.6, hematocrit 27.5, and a normal platelet count. Sodium 135, potassium 5.6, chlorides 93, CO2 23, anion gap 19, BUN 64, and creatinine 4.45. She has not had a chest x-ray on this admission. Progress note dated 08/19/2022. 31-year-old female who presented to the emergency room on August 14 with low blood pressure. Patient was transferred to the intensive care unit, for hyperkalemia, need for immediate dialysis, hyperglycemia, and hypotension. The patient is doing much better. She did have hemodialysis yesterday, and is having it today as well. She's been weaned down to 4 L. She's not receiving any IV fluids. She's been absolutely stable overnight. White count 4.7, hemoglobin 8.3, hematocrit 25.1, and platelet count was normal. Sodium 128, potassium 5.5, chlorides 91, CO2 21, anion gap 16, BUN 52, and creatinine 3.58. Objective - Vital Signs Vital signs: Vital Signs Temp 98.1 F 08/19/22 08:00 Pulse 75 08/19/22 10:00 Resp 23 08/19/22 10:00 BP 151/85 08/19/22 10:00 Pulse Ox 100 08/19/22 10:00 FiO2 Intake & Output 08/18/22 08/19/22 08/19/22 18:59 06:59 18:59 Intake Total 1240 250 50 Output Total 2300 0 0 Balance -1060 250 50 Weight 50.5 kg 48.4 kg Intake: Oral 940 250 50 Hemodialysis 300 Output: Urine 0 0 0 Hemodialysis 2300 Other: Voiding Method Toilet Toilet # Bowel Movements 1 - Exam No acute distress, oriented 3. Seen today in room 264. Currently on 4 L of oxygen. No conversational dyspnea, use of accessory muscles, or any audible wheezing. HEENT examination is grossly unremarkable. Neck supple. Full range of motion. No adenopathy thyromegaly or neck vein distention. Cardiovascular examination reveals regular rhythm rate. S1-S2 normal. No S3 or S4. No discernible murmur noted. Heart rate 75 bpm. Heart sounds are distant. Lungs reveal scattered rhonchi and crackles. Breath sounds equal. No wheezes. 4 L saturation is 99%. Abdomen soft bowel sounds are heard. No masses or tenderness. Extremities are intact. No cyanosis clubbing or edema. Skin is without rash or lesion. Neurologic examination is brief but nonfocal. - Labs CBC & Chem 7: 08/19/22 06:11 08/19/22 06:11 Labs: Abnormal Lab Results - Last 24 Hours (Table) 08/18/22 08/18/22 08/18/22 Range/Units 10:47 11:12 11:42 RBC (3.80-5.40) m/uL Hgb (11.4-16.0) gm/dL Hct (34.0-46.0) % RDW (11.5-15.5) % Lymphocytes # (1.0-4.8) k/uL Sodium 135 L (137-145) mmol/L Potassium 5.6 H (3.5-5.1) mmol/L Chloride 93 L (98-107) mmol/L Carbon Dioxide (22-30) mmol/L BUN 64 H (7-17) mg/dL Creatinine 4.45 H (0.52-1.04) mg/dL Glucose (74-99) mg/dL POC Glucose (mg/dL) 69 L 147 H (70-110) mg/dL 08/18/22 08/18/22 08/18/22 Range/Units 13:00 13:26 15:23 RBC (3.80-5.40) m/uL Hgb (11.4-16.0) gm/dL Hct (34.0-46.0) % RDW (11.5-15.5) % Lymphocytes # (1.0-4.8) k/uL Sodium (137-145) mmol/L Potassium (3.5-5.1) mmol/L Chloride (98-107) mmol/L Carbon Dioxide (22-30) mmol/L BUN (7-17) mg/dL Creatinine (0.52-1.04) mg/dL Glucose (74-99) mg/dL POC Glucose (mg/dL) 66 L 113 H 150 H (70-110) mg/dL 08/18/22 08/18/22 08/18/22 Range/Units 16:43 18:56 19:23 RBC (3.80-5.40) m/uL Hgb (11.4-16.0) gm/dL Hct (34.0-46.0) % RDW (11.5-15.5) % Lymphocytes # (1.0-4.8) k/uL Sodium (137-145) mmol/L Potassium (3.5-5.1) mmol/L Chloride (98-107) mmol/L Carbon Dioxide (22-30) mmol/L BUN (7-17) mg/dL Creatinine (0.52-1.04) mg/dL Glucose (74-99) mg/dL POC Glucose (mg/dL) 146 H 41 L 65 L (70-110) mg/dL 08/18/22 08/19/22 08/19/22 Range/Units 21:49 00:49 06:11 RBC 2.92 L (3.80-5.40) m/uL Hgb 8.3 L (11.4-16.0) gm/dL Hct 25.1 L (34.0-46.0) % RDW 16.7 H (11.5-15.5) % Lymphocytes # 0.9 L (1.0-4.8) k/uL Sodium (137-145) mmol/L Potassium (3.5-5.1) mmol/L Chloride (98-107) mmol/L Carbon Dioxide (22-30) mmol/L BUN (7-17) mg/dL Creatinine (0.52-1.04) mg/dL Glucose (74-99) mg/dL POC Glucose (mg/dL) 183 H 238 H (70-110) mg/dL 08/19/22 08/19/22 Range/Units 06:11 06:49 RBC (3.80-5.40) m/uL Hgb (11.4-16.0) gm/dL Hct (34.0-46.0) % RDW (11.5-15.5) % Lymphocytes # (1.0-4.8) k/uL Sodium 128 L (137-145) mmol/L Potassium 5.5 H (3.5-5.1) mmol/L Chloride 91 L (98-107) mmol/L Carbon Dioxide 21 L (22-30) mmol/L BUN 52 H (7-17) mg/dL Creatinine 3.58 H (0.52-1.04) mg/dL Glucose 319 H (74-99) mg/dL POC Glucose (mg/dL) 334 H (70-110) mg/dL Assessment and Plan Assessment: Acute hyperkalemia, hyperglycemia, and hypotension, status post acute hemodialysis (08/18/2022), with 2 L removed. End-stage renal disease, currently on Monday, Monday, Monday hemodialysis. History of CVA. History of diabetes mellitus, with diabetic neuropathy and retinopathy. History of hypertension. Prior history of cardiopulmonary arrest. History of restless leg syndrome. Anemia of chronic disease. History of anxiety/depression. Plan: Plan dated 08/18/2022. 31-year-old female seen today in consultation. The patient is currently in the ICU, having been transferred there for her hypotension, and her hyperkalemia as well as hyperglycemia. The patient has had 21 and admissions to this hospital, and 2021, and this is her fourth admission this year already. Currently, the patient's resting comfortably in the ICU. Her most recent potassium is 5.6. She is on 4 L of oxygen, with excellent saturations. Labs, x-rays, medications are reviewed. They're planning to do hemodialysis again tomorrow. Additional recommendations and suggestions are forthcoming. Prognosis is guarded. Plan dated 08/19/2022. The patient had emergent dialysis yesterday and is receiving dialysis again again today. And, with saturations of 99-100%. The patient is not receiving any IV fluids. Labs, x-rays, and medications are all reviewed. The patient can be transferred back to the general medical floor. No additional recommendations are made. Prognosis is guarded. This patient has had 28 visits to the emergency room 2021, with 21 or 22 admissions, and thus far this year, has had about 8 visits to the emergency room, with 4 admissions. This is excessive, and needs be addressed by the primary service. Time with Patient: Less than 30
[2022-08-19 11:19] LABS: Glucose,Whole Blood 20 mg/dL (70-110)
--- NOTE | 2022-08-19 11:19 | PN ---
PROGRESS NOTE DATE OF SERVICE: 08/18/2022 CHIEF COMPLAINT: Hypotension with elevated troponin. HISTORY OF PRESENT ILLNESS: This lady continues to struggle. During the night, she dropped her pulse and blood pressure. Blood pressure went down to 79/50 with a pulse of 28. Potassium was run and it was 7.6. Blood sugar was elevated at 861. Hemoglobin is 8.6. REVIEW OF SYSTEMS: She is feeling lightheaded, but otherwise she has had no chest pain or orthopnea. PHYSICAL EXAMINATION: VITAL SIGNS: Blood pressure is low at 79/50, pulse of 28, respirations are 34, and she is afebrile. GENERAL: She is awake and alert. She does feel lightheaded. CHEST: Clear. CARDIAC: Normal. ABDOMEN: Soft, nontender. IMPRESSION: 1. Hypotension and bradycardia. 2. Hyperkalemia. 3. Uncontrolled type 1 insulin-dependent diabetes mellitus. 4. Stage 5 chronic kidney disease. PLAN: 1. Consult with Cardiology. 2. Acute management of her hyperkalemia and call for dialysis today. MMODL / IJN: [id number] /
[2022-08-19] MEDS: DEXTROSE 50% SYRINGE 50 ML IVP PRN (11:22)
--- NOTE | 2022-08-19 11:27 | P.PN ---
Subjective Patient is seen in follow-up for end-stage renal disease. She is maintained on hemodialysis on Monday schedule. Blood glucose 319 this morning. Tolerating dialysis well. Hemodynamically stable. Vital signs are stable. General: No acute distress. HEENT: Head exam is unremarkable. LUNGS: No audible rhonchi or wheezes. HEART: Rate and Rhythm are regular. ABDOMEN: No distention. EXTREMITITES: No edema. Objective - Vital Signs Vital signs: Vital Signs Temp 98.1 F 08/19/22 08:00 Pulse 75 08/19/22 10:00 Resp 23 08/19/22 10:00 BP 151/85 08/19/22 10:00 Pulse Ox 100 08/19/22 10:00 FiO2 Intake & Output 08/18/22 08/19/22 08/19/22 18:59 06:59 18:59 Intake Total 1240 250 50 Output Total 2300 0 0 Balance -1060 250 50 Weight 50.5 kg 48.4 kg Intake: Oral 940 250 50 Hemodialysis 300 Output: Urine 0 0 0 Hemodialysis 2300 Other: Voiding Method Toilet Toilet # Bowel Movements 1 - Labs CBC & Chem 7: 08/19/22 06:11 08/19/22 06:11 Labs: Abnormal Lab Results - Last 24 Hours (Table) 08/18/22 08/18/22 08/18/22 Range/Units 11:42 13:00 13:26 RBC (3.80-5.40) m/uL Hgb (11.4-16.0) gm/dL Hct (34.0-46.0) % RDW (11.5-15.5) % Lymphocytes # (1.0-4.8) k/uL Sodium 135 L (137-145) mmol/L Potassium 5.6 H (3.5-5.1) mmol/L Chloride 93 L (98-107) mmol/L Carbon Dioxide (22-30) mmol/L BUN 64 H (7-17) mg/dL Creatinine 4.45 H (0.52-1.04) mg/dL Glucose (74-99) mg/dL POC Glucose (mg/dL) 66 L 113 H (70-110) mg/dL 08/18/22 08/18/22 08/18/22 Range/Units 15:23 16:43 18:56 RBC (3.80-5.40) m/uL Hgb (11.4-16.0) gm/dL Hct (34.0-46.0) % RDW (11.5-15.5) % Lymphocytes # (1.0-4.8) k/uL Sodium (137-145) mmol/L Potassium (3.5-5.1) mmol/L Chloride (98-107) mmol/L Carbon Dioxide (22-30) mmol/L BUN (7-17) mg/dL Creatinine (0.52-1.04) mg/dL Glucose (74-99) mg/dL POC Glucose (mg/dL) 150 H 146 H 41 L (70-110) mg/dL 08/18/22 08/18/22 08/19/22 Range/Units 19:23 21:49 00:49 RBC (3.80-5.40) m/uL Hgb (11.4-16.0) gm/dL Hct (34.0-46.0) % RDW (11.5-15.5) % Lymphocytes # (1.0-4.8) k/uL Sodium (137-145) mmol/L Potassium (3.5-5.1) mmol/L Chloride (98-107) mmol/L Carbon Dioxide (22-30) mmol/L BUN (7-17) mg/dL Creatinine (0.52-1.04) mg/dL Glucose (74-99) mg/dL POC Glucose (mg/dL) 65 L 183 H 238 H (70-110) mg/dL 08/19/22 08/19/22 08/19/22 Range/Units 06:11 06:11 06:49 RBC 2.92 L (3.80-5.40) m/uL Hgb 8.3 L (11.4-16.0) gm/dL Hct 25.1 L (34.0-46.0) % RDW 16.7 H (11.5-15.5) % Lymphocytes # 0.9 L (1.0-4.8) k/uL Sodium 128 L (137-145) mmol/L Potassium 5.5 H (3.5-5.1) mmol/L Chloride 91 L (98-107) mmol/L Carbon Dioxide 21 L (22-30) mmol/L BUN 52 H (7-17) mg/dL Creatinine 3.58 H (0.52-1.04) mg/dL Glucose 319 H (74-99) mg/dL POC Glucose (mg/dL) 334 H (70-110) mg/dL 08/19/22 Range/Units 11:18 RBC (3.80-5.40) m/uL Hgb (11.4-16.0) gm/dL Hct (34.0-46.0) % RDW (11.5-15.5) % Lymphocytes # (1.0-4.8) k/uL Sodium (137-145) mmol/L Potassium (3.5-5.1) mmol/L Chloride (98-107) mmol/L Carbon Dioxide (22-30) mmol/L BUN (7-17) mg/dL Creatinine (0.52-1.04) mg/dL Glucose (74-99) mg/dL POC Glucose (mg/dL) 20 L (70-110) mg/dL Assessment and Plan Plan: Assessment: 1. End-stage renal disease maintained on hemodialysis on Monday schedule. 2. Hypertension with chronic kidney disease. Stable. 3. Brittle diabetes mellitus. 4. Hyperkalemia secondary to chronic kidney disease and hyperglycemia. Imp roved postdialysis and with blood glucose control. 5. Volume overload. Improved post ultrafiltration. 6. Anemia of chronic kidney disease. Iron deficiency noted. Receiving IV iron. Status post blood transfusion and IV DDAVP this admission. On Aranesp. 7. History of pericardial effusion. 8. 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 Plan: Currently seen while undergoing hemodialysis. Avoid ACEi/ARB, aldactone due to risk of hyperkalemia. Avoid hydralazine/minoxidil due to pericardial effusion. Hold antihypertensives for systolic blood pressure less than 120. Patient has been advised to monitor blood pressure closely at home and to hold antihypertensives for systolic blood pressure less than 120. Blood glucose control.
[2022-08-19 11:42] LABS: Glucose,Whole Blood 120 mg/dL (70-110)
[2022-08-19] MEDS: ATORVASTATIN 40 MG TAB PO SCH (12:55)
[2022-08-19] MEDS: ASPIRIN 81 MG PO SCH (12:55)
[2022-08-19] MEDS: TORSEMIDE 20 MG TAB PO SCH ×2 (12:56→20:19)
[2022-08-19] MEDS: buPROPion SR 150 MG TABLET.ER PO SCH ×2 (12:56→20:19)
[2022-08-19] MEDS: ESCITALOPRAM 20 MG TAB PO SCH (12:57)
[2022-08-19] MEDS: CYANOCOBALAMIN 500 MCG TAB PO SCH (12:57)
[2022-08-19] MEDS: DULoxetine HCL 30 MG CAPSULE.DR PO SCH (12:58)
[2022-08-19] MEDS: SODIUM FERRIC GLUCONAT-SUCROSE 125 MG in SODIUM CHLORIDE 0.9% 100 ML IVPB SCH (15:37)
[2022-08-19 15:39] LABS: Glucose,Whole Blood 213 mg/dL (70-110)
[2022-08-19] MEDS: cloNIDine HCL 0.1 MG TAB PO PRN (15:41)
[2022-08-19 16:35] LABS: Glucose,Whole Blood 287 mg/dL (70-110)
[2022-08-19 19:46] LABS: Glucose,Whole Blood 267 mg/dL (70-110)
[2022-08-19] MEDS: MELATONIN 5 MG TABLET PO SCH (20:19)
[2022-08-19] MEDS: ALBUTEROL HFA INHALER INHALATION PRN (20:21)
[2022-08-19 21:39] LABS: Glucose,Whole Blood 327 mg/dL (70-110)
[2022-08-19] MEDS: ONDANSETRON 4 MG TAB PO PRN (22:50)
[2022-08-20] MEDS: diphenhydrAMINE 50 MG/ML 1 ML VIAL IVP PRN ×4 (00:17→18:53)
[2022-08-20 00:21] LABS: Glucose,Whole Blood 571 mg/dL (70-110)
[2022-08-20] MEDS ORDERED: INSULIN ASPART (NovoLOG) 100 UNIT/ML VIAL SQ ONE (01:09)
[2022-08-20 04:04] LABS: Glucose,Whole Blood >600 mg/dL (70-110)
[2022-08-20 05:14] LABS: Basophils % (A) 1 %; Eosinophils # (A) 0.2 k/uL (0-0.7); Eosinophils % (A) 5 %; HCT 25.8 % (34.0-46.0); HGB 8.6 gm/dL (11.4-16.0); Lymphocytes # (A) 0.5 k/uL (1.0-4.8); Lymphocytes % (A) 12 %; MCH 28.6 pg (25.0-35.0); MCHC 33.3 g/dL (31.0-37.0); MCV 86.1 fL (80.0-100.0); Mean Platelet Volume 9.3; Monocytes # (A) 0.3 k/uL (0-1.0); Monocytes % (A) 7 %; Neutrophils % (A) 73 %; Platelet Count 211 k/uL (150-450); RDW 15.8 % (11.5-15.5); WBC 4.1 k/uL (3.8-10.6)
[2022-08-20] MEDS: ONDANSETRON 4 MG TAB PO PRN ×2 (05:29→18:53)
[2022-08-20 05:31] LABS: Calcium 8.9 mg/dL (8.4-10.2); Potassium 4.9 mmol/L (3.5-5.1)
--- NOTE | 2022-08-20 05:46 | P.PN ---
Subjective Progress Note Date: 08/20/22 Principal diagnosis: Bradycardia This is a 31-year-old female patient with a past medical history significant for incisional disease on dialysis was admitted to the hospital with bradycardia and she was found to be hyperkalemic. She underwent a cyst with improvement in her potassium number. August 202022 The patient was seen and evaluated this morning. She remains hemodynamically stable beside hypertension. If the pressure remains elevated I would consider adding dihydropyridine calcium channel rox with amlodipine to the current medical regimen. Otherwise her heart rate has been within normal limits. From the cardiac standpoint of view, we'll continue the current medical regimen and the patient potentially can be discharged home in the next 24 hours. Assessment Bradycardia which has improved Electrolytes imbalance In stage renal disease on dialysis Plan Continue the current medical regimen Consider adding dihydropyridine calcium channel rox to the current medical regimen if the pressure remains elevated Possible discharge in the next 24 hours Objective - Vital Signs Vital signs: Vital Signs Temp 98.6 F 08/19/22 23:50 Pulse 83 08/20/22 04:00 Resp 17 08/20/22 04:00 BP 154/81 08/20/22 04:00 Pulse Ox 97 08/20/22 04:00 FiO2 Intake & Output 08/19/22 08/19/22 08/20/22 06:59 18:59 06:59 Intake Total 250 300 200 Output Total 0 0 Balance 250 300 200 Weight 48.4 kg 47.3 kg Intake: Oral 250 300 200 Output: Urine 0 0 Other: Voiding Method Toilet # Bowel Movements 1 1 - Labs CBC & Chem 7: 08/20/22 04:53 08/20/22 04:53 Labs: Abnormal Lab Results - Last 24 Hours (Table) 08/19/22 08/19/22 08/19/22 Range/Units 06:11 06:11 06:49 RBC 2.92 L (3.80-5.40) m/uL Hgb 8.3 L (11.4-16.0) gm/dL Hct 25.1 L (34.0-46.0) % RDW 16.7 H (11.5-15.5) % Lymphocytes # 0.9 L (1.0-4.8) k/uL Sodium 128 L (137-145) mmol/L Potassium 5.5 H (3.5-5.1) mmol/L Chloride 91 L (98-107) mmol/L Carbon Dioxide 21 L (22-30) mmol/L BUN 52 H (7-17) mg/dL Creatinine 3.58 H (0.52-1.04) mg/dL Glucose 319 H (74-99) mg/dL POC Glucose (mg/dL) 334 H (70-110) mg/dL 08/19/22 08/19/22 08/19/22 Range/Units 11:18 11:40 15:37 RBC (3.80-5.40) m/uL Hgb (11.4-16.0) gm/dL Hct (34.0-46.0) % RDW (11.5-15.5) % Lymphocytes # (1.0-4.8) k/uL Sodium (137-145) mmol/L Potassium (3.5-5.1) mmol/L Chloride (98-107) mmol/L Carbon Dioxide (22-30) mmol/L BUN (7-17) mg/dL Creatinine (0.52-1.04) mg/dL Glucose (74-99) mg/dL POC Glucose (mg/dL) 20 L 120 H 213 H (70-110) mg/dL 08/19/22 08/19/22 08/19/22 Range/Units 16:34 19:45 21:37 RBC (3.80-5.40) m/uL Hgb (11.4-16.0) gm/dL Hct (34.0-46.0) % RDW (11.5-15.5) % Lymphocytes # (1.0-4.8) k/uL Sodium (137-145) mmol/L Potassium (3.5-5.1) mmol/L Chloride (98-107) mmol/L Carbon Dioxide (22-30) mmol/L BUN (7-17) mg/dL Creatinine (0.52-1.04) mg/dL Glucose (74-99) mg/dL POC Glucose (mg/dL) 287 H 267 H 327 H (70-110) mg/dL 08/20/22 08/20/22 08/20/22 Range/Units 00:19 04:03 04:53 RBC 3.00 L (3.80-5.40) m/uL Hgb 8.6 L (11.4-16.0) gm/dL Hct 25.8 L (34.0-46.0) % RDW 15.8 H (11.5-15.5) % Lymphocytes # 0.5 L (1.0-4.8) k/uL Sodium (137-145) mmol/L Potassium (3.5-5.1) mmol/L Chloride (98-107) mmol/L Carbon Dioxide (22-30) mmol/L BUN (7-17) mg/dL Creatinine (0.52-1.04) mg/dL Glucose (74-99) mg/dL POC Glucose (mg/dL) 571 H >600 H (70-110) mg/dL 08/20/22 Range/Units 04:53 RBC (3.80-5.40) m/uL Hgb (11.4-16.0) gm/dL Hct (34.0-46.0) % RDW (11.5-15.5) % Lymphocytes # (1.0-4.8) k/uL Sodium 126 L (137-145) mmol/L Potassium (3.5-5.1) mmol/L Chloride 89 L (98-107) mmol/L Carbon Dioxide (22-30) mmol/L BUN 31 H (7-17) mg/dL Creatinine 3.14 H (0.52-1.04) mg/dL Glucose 589 H* (74-99) mg/dL POC Glucose (mg/dL) (70-110) mg/dL
[2022-08-20 06:02] LABS: Glucose,Whole Blood 563 mg/dL (70-110)
[2022-08-20] MEDS: INSULIN DETEMIR (LEVEMIR) 100 UNIT/ML SYR SQ SCH (06:06)
[2022-08-20] MEDS: INSULIN ASPART (NovoLOG) 100 UNIT/ML VIAL SQ SCH ×9 (06:07→20:32)
[2022-08-20] MEDS: PANTOPRAZOLE 40 MG TABLET PO SCH (06:12)
[2022-08-20] MEDS: CALCIUM ACETATE 667 MG TAB PO SCH ×3 (06:12→17:01)
[2022-08-20] MEDS: carvediloL 12.5 MG TAB PO SCH ×2 (06:12→17:04)
[2022-08-20] MEDS: CYANOCOBALAMIN 500 MCG TAB PO SCH (09:01)
[2022-08-20] MEDS: ESCITALOPRAM 20 MG TAB PO SCH (09:01)
[2022-08-20] MEDS: ATORVASTATIN 40 MG TAB PO SCH (09:01)
[2022-08-20] MEDS: ASPIRIN 81 MG PO SCH (09:01)
[2022-08-20] MEDS: DULoxetine HCL 30 MG CAPSULE.DR PO SCH (09:01)
[2022-08-20] MEDS: TORSEMIDE 20 MG TAB PO SCH ×2 (09:02→20:08)
[2022-08-20] MEDS: buPROPion SR 150 MG TABLET.ER PO SCH ×2 (09:02→20:08)
[2022-08-20] MEDS: ALBUTEROL HFA INHALER INHALATION PRN ×2 (09:09→21:28)
[2022-08-20] MEDS: LORazepam 1 MG TAB PO PRN (10:44)
[2022-08-20 11:54] LABS: Glucose,Whole Blood 268 mg/dL (70-110)
--- NOTE | 2022-08-20 12:01 | P.PN ---
Subjective Patient is seen for follow-up for end-stage renal disease. This morning she is comfortable and no significant complaints. Status post UF of 4.8 L yesterday. Blood sugars continue to fluctuate. Objective - Vital Signs Vital signs: Vital Signs Temp 98.9 F 08/20/22 08:00 Pulse 74 08/20/22 08:00 Resp 18 08/20/22 08:00 BP 145/75 08/20/22 08:00 Pulse Ox 99 08/20/22 09:12 FiO2 Intake & Output 08/19/22 08/20/22 08/20/22 18:59 06:59 18:59 Intake Total 300 400 236 Output Total 0 Balance 300 400 236 Weight 47.3 kg Intake: Oral 300 400 236 Output: Urine 0 Other: # Voids 0 # Bowel Movements 1 - Exam Patient is awake, comfortable, no acute distress Examination of the heart S1 and S2 Examination of the lungs bilateral breath sounds are heard Abdomen is soft nontender Examination of lower extremities shows no significant edema Patient is legally blind - Labs CBC & Chem 7: 08/20/22 04:53 08/20/22 04:53 Labs: Abnormal Lab Results - Last 24 Hours (Table) 08/19/22 08/19/22 08/19/22 Range/Units 15:37 16:34 19:45 RBC (3.80-5.40) m/uL Hgb (11.4-16.0) gm/dL Hct (34.0-46.0) % RDW (11.5-15.5) % Lymphocytes # (1.0-4.8) k/uL Sodium (137-145) mmol/L Chloride (98-107) mmol/L BUN (7-17) mg/dL Creatinine (0.52-1.04) mg/dL Glucose (74-99) mg/dL POC Glucose (mg/dL) 213 H 287 H 267 H (70-110) mg/dL 08/19/22 08/20/22 08/20/22 Range/Units 21:37 00:19 04:03 RBC (3.80-5.40) m/uL Hgb (11.4-16.0) gm/dL Hct (34.0-46.0) % RDW (11.5-15.5) % Lymphocytes # (1.0-4.8) k/uL Sodium (137-145) mmol/L Chloride (98-107) mmol/L BUN (7-17) mg/dL Creatinine (0.52-1.04) mg/dL Glucose (74-99) mg/dL POC Glucose (mg/dL) 327 H 571 H >600 H (70-110) mg/dL 08/20/22 08/20/22 08/20/22 Range/Units 04:53 04:53 06:01 RBC 3.00 L (3.80-5.40) m/uL Hgb 8.6 L (11.4-16.0) gm/dL Hct 25.8 L (34.0-46.0) % RDW 15.8 H (11.5-15.5) % Lymphocytes # 0.5 L (1.0-4.8) k/uL Sodium 126 L (137-145) mmol/L Chloride 89 L (98-107) mmol/L BUN 31 H (7-17) mg/dL Creatinine 3.14 H (0.52-1.04) mg/dL Glucose 589 H* (74-99) mg/dL POC Glucose (mg/dL) 563 H (70-110) mg/dL 08/20/22 Range/Units 11:50 RBC (3.80-5.40) m/uL Hgb (11.4-16.0) gm/dL Hct (34.0-46.0) % RDW (11.5-15.5) % Lymphocytes # (1.0-4.8) k/uL Sodium (137-145) mmol/L Chloride (98-107) mmol/L BUN (7-17) mg/dL Creatinine (0.52-1.04) mg/dL Glucose (74-99) mg/dL POC Glucose (mg/dL) 268 H (70-110) mg/dL Assessment and Plan Assessment: 1. End-stage renal disease maintained on hemodialysis on Monday schedule. 2. Hypertension with chronic kidney disease. Stable. 3. Brittle diabetes mellitus. 4. Hyperkalemia secondary to chronic kidney disease and hyperglycemia. Improved postdialysis and with blood glucose control. 5. Volume overload. Improved post ultrafiltration. 6. Anemia of chronic kidney disease. Iron deficiency noted. Receiving IV iron. Status post blood transfusion and IV DDAVP this admission. On Aranesp. 7. History of pericardial effusion. 8. Chronic kidney disease mineral bone disease maintained on PhosLo Plan: Hemodialysis on 08/22/2022
[2022-08-20] MEDS: DEXTROSE 50% SYRINGE 50 ML IVP PRN (15:07)
[2022-08-20 15:08] LABS: Glucose,Whole Blood 31 mg/dL (70-110)
[2022-08-20 15:44] LABS: Glucose,Whole Blood 105 mg/dL (70-110)
[2022-08-20 17:09] LABS: Glucose,Whole Blood 113 mg/dL (70-110)
[2022-08-20] MEDS: MELATONIN 5 MG TABLET PO SCH (20:07)
[2022-08-20] MEDS: traZODone HCL 50 MG TAB PO PRN (20:07)
[2022-08-20 20:29] LABS: Glucose,Whole Blood 408 mg/dL (70-110)
--- NOTE | 2022-08-20 21:24 | PN ---
PROGRESS NOTE DATE OF SERVICE: 08/19/2022 CHIEF COMPLAINT: Uncontrolled diabetes, renal failure, and uncontrolled hypertension. HISTORY OF PRESENT ILLNESS: This lady continues to have a lot of difficulty with her blood sugars. They go down into the 50s and 60s and then up to 500 to 600. Other than that, she has been doing fairly well. Her blood pressure has been under fairly good control, but at times it too is elevated. REVIEW OF SYSTEMS: She has had no new complaints or problems other than the itching when she is dialyzed. PHYSICAL EXAMINATION: CHEST: Clear. CARDIAC: Demonstrates sinus rhythm. ABDOMEN: Soft and nontender. IMPRESSION: 1. Labile hypertension. 2. Stage 5 chronic kidney disease. 3. Poorly controlled insulin-dependent diabetes mellitus. 4. Diabetic retinopathy with legal blindness. PLAN: Continue with current efforts to keep her stable as possible while she continues to be dialyzed. MMODL / IJN: [id number] /
--- NOTE | 2022-08-20 21:53 | PN ---
PROGRESS NOTE DATE OF SERVICE: 08/20/2022 CHIEF COMPLAINT: Chronic renal failure, uncontrolled diabetes and hypertension. HISTORY OF PRESENT ILLNESS: This lady's sugars are still fluctuating. Last night she went up over 500s. Short- acting insulin late in the day has not been given. Today she is doing well. She was low this morning and now she is back up. PHYSICAL EXAMINATION: CHEST: Clear. CARDIAC: Normal. ABDOMEN: Soft, nontender. IMPRESSION: 1. Uncontrolled type 1 diabetes. 2. Uncontrolled hypertension. 3. Renal failure. PLAN: Try adding 6 units of NovoLog at midnight to see if this precludes the significant elevations that she is getting every night. MMODL / IJN: [id number] /
[2022-08-20 23:15] LABS: Glucose,Whole Blood 264 mg/dL (70-110)
[2022-08-21] MEDS: ONDANSETRON 4 MG TAB PO PRN ×3 (00:23→21:51)
[2022-08-21] MEDS: diphenhydrAMINE 50 MG/ML 1 ML VIAL IVP PRN ×5 (00:31→23:41)
[2022-08-21 02:05] LABS: Glucose,Whole Blood 502 mg/dL (70-110)
[2022-08-21 04:36] LABS: Glucose,Whole Blood >600 mg/dL (70-110)
[2022-08-21 04:43] LABS: Basophils # (A) 0.1 k/uL (0-0.2); Basophils % (A) 1 %; Eosinophils # (A) 0.3 k/uL (0-0.7); Eosinophils % (A) 5 %; HCT 26.5 % (34.0-46.0); HGB 8.5 gm/dL (11.4-16.0); Lymphocytes # (A) 0.5 k/uL (1.0-4.8); Lymphocytes % (A) 8 %; MCH 27.7 pg (25.0-35.0); MCHC 32.3 g/dL (31.0-37.0); MCV 85.8 fL (80.0-100.0); Mean Platelet Volume 9.3; Monocytes # (A) 0.3 k/uL (0-1.0); Monocytes % (A) 5 %; Neutrophils # (A) 4.9 k/uL (1.3-7.7); Neutrophils % (A) 81 %; Platelet Count 266 k/uL (150-450); RBC 3.09 m/uL (3.80-5.40); RDW 15.9 % (11.5-15.5)
[2022-08-21 04:49] LABS: Calcium 8.7 mg/dL (8.4-10.2); Potassium 5.7 mmol/L (3.5-5.1)
[2022-08-21] MEDS ORDERED: INSULIN ASPART (NovoLOG) 100 UNIT/ML VIAL SQ ONE (05:24)
[2022-08-21 06:22] LABS: Glucose,Whole Blood >600 mg/dL (70-110)
[2022-08-21] MEDS ORDERED: SODIUM ZIRCONIUM CYCLOSILICATE 10 GM PACKET PO ONE (06:30)
[2022-08-21] MEDS: PANTOPRAZOLE 40 MG TABLET PO SCH (06:32)
[2022-08-21] MEDS: carvediloL 12.5 MG TAB PO SCH ×2 (06:32→17:07)
[2022-08-21] MEDS: CALCIUM ACETATE 667 MG TAB PO SCH ×3 (06:32→17:07)
[2022-08-21] MEDS: INSULIN DETEMIR (LEVEMIR) 100 UNIT/ML SYR SQ SCH (06:38)
--- NOTE | 2022-08-21 07:34 | P.PN ---
Subjective Progress Note Date: 08/21/22 Principal diagnosis: Bradycardia This is a 31-year-old female patient with a past medical history significant for incisional disease on dialysis was admitted to the hospital with bradycardia and she was found to be hyperkalemic. She underwent a cyst with improvement in her potassium number. August 202022 The patient was seen and evaluated this morning. She remains hemodynamically stable beside hypertension. If the pressure remains elevated I would consider adding dihydropyridine calcium channel rox with amlodipine to the current medical regimen. Otherwise her heart rate has been within normal limits. From the cardiac standpoint of view, we'll continue the current medical regimen and the patient potentially can be discharged home in the next 24 hours. 08/21/2022 The patient was seen and evaluated this morning. She is asymptomatic from a perivascular standpoint of view and she is hemodynamically stable. The bradycardia has improved. The blood pressure is a slightly elevated intermittently but not constantly. From the cardiac standpoint of view, we'll continue the current medical and follow-up with the patient on when necessary case. Assessment Bradycardia which has improved Electrolytes imbalance End stage renal disease on dialysis Plan Continue the current medical regimen Consider adding dihydropyridine calcium channel rox to the current medical regimen if the pressure remains elevated Follow-up with the patient on when necessary case Objective - Vital Signs Vital signs: Vital Signs Temp 98.7 F 08/21/22 03:14 Pulse 85 08/21/22 03:14 Resp 17 08/21/22 03:14 BP 157/75 08/21/22 03:14 Pulse Ox 98 08/21/22 03:14 FiO2 Intake & Output 08/20/22 08/21/22 08/21/22 18:59 06:59 18:59 Intake Total 952 200 Output Total 1 301 Balance 951 -101 Weight 47.9 kg Intake: Oral 952 200 Output: Stool 1 1 Emesis 300 Other: Voiding Method Toilet Toilet # Voids 1 1 # Bowel Movements 1 - Labs CBC & Chem 7: 08/21/22 04:17 08/21/22 04:17 Labs: Abnormal Lab Results - Last 24 Hours (Table) 08/20/22 08/20/22 08/20/22 Range/Units 11:50 15:01 16:38 RBC (3.80-5.40) m/uL Hgb (11.4-16.0) gm/dL Hct (34.0-46.0) % RDW (11.5-15.5) % Lymphocytes # (1.0-4.8) k/uL Sodium (137-145) mmol/L Potassium (3.5-5.1) mmol/L Chloride (98-107) mmol/L Carbon Dioxide (22-30) mmol/L BUN (7-17) mg/dL Creatinine (0.52-1.04) mg/dL Glucose (74-99) mg/dL POC Glucose (mg/dL) 268 H 31 L 113 H (70-110) mg/dL 08/20/22 08/20/22 08/21/22 Range/Units 20:28 23:14 02:03 RBC (3.80-5.40) m/uL Hgb (11.4-16.0) gm/dL Hct (34.0-46.0) % RDW (11.5-15.5) % Lymphocytes # (1.0-4.8) k/uL Sodium (137-145) mmol/L Potassium (3.5-5.1) mmol/L Chloride (98-107) mmol/L Carbon Dioxide (22-30) mmol/L BUN (7-17) mg/dL Creatinine (0.52-1.04) mg/dL Glucose (74-99) mg/dL POC Glucose (mg/dL) 408 H 264 H 502 H (70-110) mg/dL 08/21/22 08/21/22 08/21/22 Range/Units 04:17 04:17 04:34 RBC 3.09 L (3.80-5.40) m/uL Hgb 8.5 L (11.4-16.0) gm/dL Hct 26.5 L (34.0-46.0) % RDW 15.9 H (11.5-15.5) % Lymphocytes # 0.5 L (1.0-4.8) k/uL Sodium 125 L (137-145) mmol/L Potassium 5.7 H (3.5-5.1) mmol/L Chloride 85 L (98-107) mmol/L Carbon Dioxide 20 L (22-30) mmol/L BUN 51 H (7-17) mg/dL Creatinine 5.04 H (0.52-1.04) mg/dL Glucose 659 H* (74-99) mg/dL POC Glucose (mg/dL) >600 H (70-110) mg/dL 08/21/22 Range/Units 06:21 RBC (3.80-5.40) m/uL Hgb (11.4-16.0) gm/dL Hct (34.0-46.0) % RDW (11.5-15.5) % Lymphocytes # (1.0-4.8) k/uL Sodium (137-145) mmol/L Potassium (3.5-5.1) mmol/L Chloride (98-107) mmol/L Carbon Dioxide (22-30) mmol/L BUN (7-17) mg/dL Creatinine (0.52-1.04) mg/dL Glucose (74-99) mg/dL POC Glucose (mg/dL) >600 H (70-110) mg/dL
[2022-08-21] MEDS: TORSEMIDE 20 MG TAB PO SCH ×2 (08:55→22:17)
[2022-08-21] MEDS: ASPIRIN 81 MG PO SCH (08:55)
[2022-08-21] MEDS: ESCITALOPRAM 20 MG TAB PO SCH (08:55)
[2022-08-21] MEDS: ATORVASTATIN 40 MG TAB PO SCH (08:55)
[2022-08-21] MEDS: CYANOCOBALAMIN 500 MCG TAB PO SCH (08:55)
[2022-08-21] MEDS: DULoxetine HCL 30 MG CAPSULE.DR PO SCH (08:56)
[2022-08-21] MEDS: buPROPion SR 150 MG TABLET.ER PO SCH ×2 (08:56→22:17)
[2022-08-21] MEDS: ALBUTEROL HFA INHALER INHALATION PRN ×3 (09:16→21:17)
[2022-08-21 09:48] LABS: Glucose,Whole Blood 324 mg/dL (70-110)
[2022-08-21] MEDS: INSULIN ASPART (NovoLOG) 100 UNIT/ML VIAL SQ SCH ×6 (10:13→17:07)
[2022-08-21] MEDS: cloNIDine HCL 0.1 MG TAB PO PRN (11:41)
[2022-08-21 11:56] LABS: Glucose,Whole Blood 74 mg/dL (70-110)
--- NOTE | 2022-08-21 11:56 | P.PN ---
Subjective Patient is seen for follow-up for end-stage renal disease. Blood sugars were significantly elevated last night and stated above 600. Potassium was elevated at 5.7. Overall patient states she feels nauseated. Repeat blood sugar this morning was 324 Blood pressure is not elevated. Scheduled for hemodialysis in a.m. Objective - Vital Signs Vital signs: Vital Signs Temp 97.0 F L 08/21/22 08:00 Pulse 81 08/21/22 08:00 Resp 17 08/21/22 08:00 BP 161/71 08/21/22 08:00 Pulse Ox 99 08/21/22 09:18 FiO2 Intake & Output 08/20/22 08/21/22 08/21/22 18:59 06:59 18:59 Intake Total 952 200 Output Total 1 301 Balance 951 -101 Weight 47.9 kg Intake: Oral 952 200 Output: Stool 1 1 Emesis 300 Other: Voiding Method Toilet Toilet # Voids 1 1 # Bowel Movements 1 - Exam Patient is awake, comfortable, no acute distress Examination of the heart S1 and S2 Examination of the lungs bilateral breath sounds are heard Abdomen is soft nontender Examination of lower extremities shows no significant edema Patient is legally blind - Labs CBC & Chem 7: 08/21/22 04:17 08/21/22 04:17 Labs: Abnormal Lab Results - Last 24 Hours (Table) 08/20/22 08/20/22 08/20/22 Range/Units 11:50 15:01 16:38 RBC (3.80-5.40) m/uL Hgb (11.4-16.0) gm/dL Hct (34.0-46.0) % RDW (11.5-15.5) % Lymphocytes # (1.0-4.8) k/uL Sodium (137-145) mmol/L Potassium (3.5-5.1) mmol/L Chloride (98-107) mmol/L Carbon Dioxide (22-30) mmol/L BUN (7-17) mg/dL Creatinine (0.52-1.04) mg/dL Glucose (74-99) mg/dL POC Glucose (mg/dL) 268 H 31 L 113 H (70-110) mg/dL 08/20/22 08/20/22 08/21/22 Range/Units 20:28 23:14 02:03 RBC (3.80-5.40) m/uL Hgb (11.4-16.0) gm/dL Hct (34.0-46.0) % RDW (11.5-15.5) % Lymphocytes # (1.0-4.8) k/uL Sodium (137-145) mmol/L Potassium (3.5-5.1) mmol/L Chloride (98-107) mmol/L Carbon Dioxide (22-30) mmol/L BUN (7-17) mg/dL Creatinine (0.52-1.04) mg/dL Glucose (74-99) mg/dL POC Glucose (mg/dL) 408 H 264 H 502 H (70-110) mg/dL 08/21/22 08/21/22 08/21/22 Range/Units 04:17 04:17 04:34 RBC 3.09 L (3.80-5.40) m/uL Hgb 8.5 L (11.4-16.0) gm/dL Hct 26.5 L (34.0-46.0) % RDW 15.9 H (11.5-15.5) % Lymphocytes # 0.5 L (1.0-4.8) k/uL Sodium 125 L (137-145) mmol/L Potassium 5.7 H (3.5-5.1) mmol/L Chloride 85 L (98-107) mmol/L Carbon Dioxide 20 L (22-30) mmol/L BUN 51 H (7-17) mg/dL Creatinine 5.04 H (0.52-1.04) mg/dL Glucose 659 H* (74-99) mg/dL POC Glucose (mg/dL) >600 H (70-110) mg/dL 08/21/22 08/21/22 Range/Units 06:21 09:27 RBC (3.80-5.40) m/uL Hgb (11.4-16.0) gm/dL Hct (34.0-46.0) % RDW (11.5-15.5) % Lymphocytes # (1.0-4.8) k/uL Sodium (137-145) mmol/L Potassium (3.5-5.1) mmol/L Chloride (98-107) mmol/L Carbon Dioxide (22-30) mmol/L BUN (7-17) mg/dL Creatinine (0.52-1.04) mg/dL Glucose (74-99) mg/dL POC Glucose (mg/dL) >600 H 324 H (70-110) mg/dL Assessment and Plan Assessment: 1. End-stage renal disease maintained on hemodialysis on Monday schedule. 2. Hypertension with chronic kidney disease. Stable. 3. Brittle diabetes mellitus. 4. Hyperkalemia secondary to chronic kidney disease and hyperglycemia. Improved postdialysis and with blood glucose control. 5. Volume overload. Improved post ultrafiltration. 6. Anemia of chronic kidney disease. Iron deficiency noted. Receiving IV iron. Status post blood transfusion and IV DDAVP this admission. On Aranesp. 7. History of pericardial effusion. 8. Chronic kidney disease mineral bone disease maintained on PhosLo Plan: Hemodialysis in a.m. with UF of about 4-4.5 L as tolerated Control of blood sugars as per primary service
[2022-08-21] MEDS: LORazepam 1 MG TAB PO PRN (13:36)
[2022-08-21 15:02] LABS: Glucose,Whole Blood 137 mg/dL (70-110)
[2022-08-21 16:40] LABS: Glucose,Whole Blood 181 mg/dL (70-110)
[2022-08-21] MEDS ORDERED: cloNIDine HCL 0.2 MG TAB PO PRN (19:28)
[2022-08-21 19:36] LABS: Glucose,Whole Blood 43 mg/dL (70-110)
[2022-08-21] MEDS: DEXTROSE 50% SYRINGE 50 ML IVP PRN (19:45)
[2022-08-21 19:52] LABS: Glucose,Whole Blood 139 mg/dL (70-110)
[2022-08-21 21:51] LABS: Glucose,Whole Blood 111 mg/dL (70-110)
[2022-08-21] MEDS: MELATONIN 5 MG TABLET PO SCH (22:17)
[2022-08-21] MEDS ORDERED: cloNIDine HCL 0.2 MG TAB PO STA (22:51)
[2022-08-21] MEDS ORDERED: PROCHLORPERAZINE INJ 10 MG/2 ML VIAL IVP PRN (23:13)
[2022-08-21] MEDS ORDERED: SODIUM BICARB 8.4% 50 ML SYR (1 MEQ/ML) IV ONE (23:15)
[2022-08-21] MEDS ORDERED: CALCIUM GLUCONATE IN NACL 1 GM in SALINE 1 100ML.BAG IVPB ONE (23:15)
[2022-08-22] MEDS: traZODone HCL 50 MG TAB PO PRN (00:19)
[2022-08-22 00:37] LABS: Glucose,Whole Blood 346 mg/dL (70-110)
[2022-08-22 01:49] LABS: Glucose,Whole Blood 468 mg/dL (70-110)
[2022-08-22] MEDS: INSULIN ASPART (NovoLOG) 100 UNIT/ML VIAL SQ SCH ×8 (01:50→21:08)
--- NOTE | 2022-08-22 04:15 | PN ---
PROGRESS NOTE DATE OF SERVICE: 08/21/2022 CHIEF COMPLAINT: Uncontrolled diabetes, renal failure, and uncontrolled hypertension. HISTORY OF PRESENT ILLNESS: This lady's blood sugars continued to be a problem. She continues to get quite high at night. She was very high last night and did not come down in the morning as she usually does. She even had an additional 6 units of NovoLog ordered at midnight. Other than that, she is doing fine. PHYSICAL EXAMINATION: CHEST: Clear. CARDIAC: Normal. ABDOMEN: Soft, nontender. IMPRESSION: 1. Uncontrolled hypertension with episodes of hypotension. 2. Uncontrolled type 1 insulin-dependent diabetes mellitus. 3. Stage 5 chronic kidney disease. 4. Retinopathy with blindness. PLAN: Continue efforts to manage her various chronic illnesses. MMODL / IJN: [id number] /
[2022-08-22 04:50] LABS: Calcium 8.9 mg/dL (8.4-10.2); Potassium 5.6 mmol/L (3.5-5.1)
[2022-08-22 05:15] LABS: Glucose,Whole Blood 284 mg/dL (70-110)
[2022-08-22] MEDS: hydrALAZINE HCL 20 MG/ML 1 ML VIAL IVP SCH ×3 (05:24→15:19)
--- NOTE | 2022-08-22 05:42 | XR ---
EXAMINATION TYPE: XR chest 1V portable DATE OF EXAM: 08/22/2022 COMPARISON: 07/30/2022 HISTORY: Hypoxemia TECHNIQUE: Single view FINDINGS: Heart is enlarged. There is pulmonary interstitial and airspace edema. There are chest lead s. Bony thorax is intact. IMPRESSION: There is increasing pulmonary edema compared to last exam and consistent with worsening c ongestive heart failure.
[2022-08-22] MEDS: carvediloL 12.5 MG TAB PO SCH ×2 (06:10→17:16)
[2022-08-22] MEDS: PANTOPRAZOLE 40 MG TABLET PO SCH (06:10)
[2022-08-22] MEDS: CALCIUM ACETATE 667 MG TAB PO SCH ×3 (06:10→17:16)
[2022-08-22] MEDS: INSULIN DETEMIR (LEVEMIR) 100 UNIT/ML SYR SQ SCH (06:10)
[2022-08-22 07:07] LABS: Glucose,Whole Blood 291 mg/dL (70-110)
[2022-08-22] MEDS: buPROPion SR 150 MG TABLET.ER PO SCH ×2 (07:48→21:09)
[2022-08-22] MEDS: TORSEMIDE 20 MG TAB PO SCH ×2 (07:48→21:09)
[2022-08-22] MEDS: ATORVASTATIN 40 MG TAB PO SCH (07:48)
[2022-08-22] MEDS: ASPIRIN 81 MG PO SCH (07:48)
[2022-08-22] MEDS: CYANOCOBALAMIN 500 MCG TAB PO SCH (07:48)
[2022-08-22] MEDS: DULoxetine HCL 30 MG CAPSULE.DR PO SCH (07:49)
[2022-08-22] MEDS: ESCITALOPRAM 20 MG TAB PO SCH (07:49)
[2022-08-22] MEDS: diphenhydrAMINE 50 MG/ML 1 ML VIAL IVP PRN ×2 (07:57→14:36)
[2022-08-22 11:23] LABS: Glucose,Whole Blood 39 mg/dL (70-110)
[2022-08-22] MEDS: DEXTROSE 50% SYRINGE 50 ML IVP PRN ×2 (11:29→13:10)
[2022-08-22 11:40] LABS: Glucose,Whole Blood 181 mg/dL (70-110)
--- NOTE | 2022-08-22 12:53 | P.PN ---
Subjective Progress Note Date: 08/22/22 31-year-old female who presents to the emergency department on August 14. She presented with low blood pressure. The patient is well-known to our service, and has a history of end-stage renal disease. She does have hemodialysis, 3 times a week, typically Monday, Monday, and Monday. She was seen in the emergency department, for a low blood pressure, in the 80s systolic. She denies any chest pain or palpitations. She also denied any difficulty breathing. She was seen in the ER, and admitted to the hospital. The patient has really had 3 admissions to the hospital this year already, and in 2021, had 21 admissions to this hospital. Today, a cousin with low blood pressure, elevated potassium, and shortness of breath, she was transferred from the general medical floor, to the intensive care unit. She had hemodialysis today, and 2 L was removed. She was initially on 6 L of oxygen, and his been weaned down to 4 L. She's not receiving any IV fluids. Also, earlier today, her potassium level was 7.6, and today, it before dialysis, it was 5.6. She's feeling much better. Also, her blood pressure is much improved, running 131/77, when last checked. Current labs include a white count of 3.8, hemoglobin 8.6, hematocrit 27.5, and a normal platelet count. Sodium 135, potassium 5.6, chlorides 93, CO2 23, anion gap 19, BUN 64, and creatinine 4.45. She has not had a chest x-ray on this admission. On today's evaluation of 08/22/2022, the patient is awake and alert and she is communicating. She is undergoing hemodialysis. No significant respiratory difficulties for now. The patient overnight had issues with elevated blood pressure. BP was as high as 201/96 and currently is down to 165/84. The patient also had some limited hypoglycemia with a blood sugar dropping down to 4 3. The patient was given D50 half an amp and subsequent blood sugars improved. Currently sedated on 3 L of oxygen by nasal cannula. She is going to undergo hemodialysis. Last night, she was placed on 10 L the patient was also found to be hypoxic. The bloodwork was noted. Potassium levels at 5.6 with a sodium level of 129, BUN 73 with a creatinine of 6.8. Blood sugars at 181. Objective - Vital Signs Vital signs: Vital Signs Temp 99 F 08/22/22 08:00 Pulse 90 08/22/22 08:00 Resp 20 08/22/22 08:00 BP 201/96 08/22/22 08:00 Pulse Ox 98 08/22/22 08:00 FiO2 Intake & Output 08/21/22 08/22/22 08/22/22 18:59 06:59 18:59 Intake Total 480 222 Output Total 1 Balance 479 222 Intake: Oral 480 222 Output: Stool 1 Other: Voiding Method Toilet Toilet # Voids 0 - Exam No acute distress, oriented 3. Seen today in room 264. . No conversational dyspnea, use of accessory muscles, or any audible wheezing. Currently on 3 L of oxygen by nasal cannula HEENT examination is grossly unremarkable. Neck supple. Full range of motion. No adenopathy thyromegaly or neck vein distention. Cardiovascular examination reveals regular rhythm rate. S1-S2 normal. No S3 or S4. No discernible murmur noted. Heart sounds are distant. Lungs reveal scattered rhonchi and crackles. Breath sounds equal. No wheezes Abdomen soft bowel sounds are heard. No masses or tenderness. Extremities are intact. No cyanosis clubbing or edema. Skin is without rash or lesion. Neurologic examination is brief but nonfocal. - Labs CBC & Chem 7: 08/21/22 04:17 08/22/22 04:17 Labs: Abnormal Lab Results - Last 24 Hours (Table) 08/21/22 08/21/22 08/21/22 Range/Units 15:01 16:29 17:22 Sodium 128 L (137-145) mmol/L Potassium 6.0 H (3.5-5.1) mmol/L Chloride 88 L (98-107) mmol/L BUN 60 H (7-17) mg/dL Creatinine 6.40 H (0.52-1.04) mg/dL Glucose 178 H (74-99) mg/dL POC Glucose (mg/dL) 137 H 181 H (70-110) mg/dL 08/21/22 08/21/22 08/21/22 Range/Units 19:34 19:50 21:50 Sodium (137-145) mmol/L Potassium (3.5-5.1) mmol/L Chloride (98-107) mmol/L BUN (7-17) mg/dL Creatinine (0.52-1.04) mg/dL Glucose (74-99) mg/dL POC Glucose (mg/dL) 43 L 139 H 111 H (70-110) mg/dL 08/22/22 08/22/22 08/22/22 Range/Units 00:35 01:48 04:17 Sodium 129 L (137-145) mmol/L Potassium 5.6 H (3.5-5.1) mmol/L Chloride 87 L (98-107) mmol/L BUN 73 H (7-17) mg/dL Creatinine 6.88 H (0.52-1.04) mg/dL Glucose 209 H (74-99) mg/dL POC Glucose (mg/dL) 346 H 468 H (70-110) mg/dL 08/22/22 08/22/22 Range/Units 05:12 07:06 Sodium (137-145) mmol/L Potassium (3.5-5.1) mmol/L Chloride (98-107) mmol/L BUN (7-17) mg/dL Creatinine (0.52-1.04) mg/dL Glucose (74-99) mg/dL POC Glucose (mg/dL) 284 H 291 H (70-110) mg/dL Assessment and Plan Plan: Acute hyperkalemia, hyperglycemia, and hypotension, status post acute hem odialysis (08/18/2022), the patient is undergoing another session of hemodialysis today for a potassium level of 5.6 Acute hypertensive emergency, current blood pressures under better control and the patient undergoing hemodialysis Acute hypoxic respiratory failure, placed on 10 L of oxygen overnight currently on 3 L Recurrent episodes of hypoglycemia End-stage renal disease, currently on Monday, Monday, Monday hemodialysis. History of CVA. History of diabetes mellitus, with diabetic neuropathy and retinopathy. History of hypertension. Prior history of cardiopulmonary arrest. History of restless leg syndrome. Anemia of chronic disease. History of anxiety/depression. Plan: Proceed with hemodialysis Monitor blood pressure and the patient is currently on Coreg 12.5 mg by mouth twice a day, clonidine 0.1 mg on a as-needed basis and she is also taking Demadex 20 mg by mouth twice a day. She is on Procardia XL 60 mg by mouth twice a day. She is taking hydralazine 50 mg IV every 8 hours. Monitor the blood sugar and give Levemir as long as the patient is able to tolerate her diet. She is on 12 units of Levemir in the morning along with 6 units with meals and bedtime plus a sliding scale coverage Continue rest of the home medications and will continue to follow
[2022-08-22 13:06] LABS: Glucose,Whole Blood 30 mg/dL (70-110)
--- NOTE | 2022-08-22 13:08 | P.PN ---
Subjective Patient is seen for follow-up for end-stage renal disease. Blood pressure was elevated last night and patient received extra doses of Procardia and clonidine. Respiratory status also worsened early this morning and patient was started on hemodialysis. She has had about 4.8 L of UF and is feeling better. Blood sugar had dropped down to 30 patient has received a few amps of D50 since yesterday Objective - Vital Signs Vital signs: Vital Signs Temp 97.8 F 08/22/22 12:44 Pulse 79 08/22/22 12:44 Resp 20 08/22/22 12:44 BP 165/93 08/22/22 12:44 Pulse Ox 98 08/22/22 08:00 FiO2 Intake & Output 08/21/22 08/22/22 08/22/22 18:59 06:59 18:59 Intake Total 480 222 300 Output Total 1 5000 Balance 479 222 -4700 Intake: Oral 480 222 Hemodialysis 300 Output: Stool 1 Hemodialysis 5000 Other: Voiding Method Toilet Toilet Toilet # Voids 0 - Exam Patient is awake, comfortable, no acute distress Examination of the heart S1 and S2 Examination of the lungs bilateral breath sounds are heard Abdomen is soft nontender Examination of lower extremities shows no significant edema Patient is legally blind - Labs CBC & Chem 7: 08/21/22 04:17 08/22/22 04:17 Labs: Abnormal Lab Results - Last 24 Hours (Table) 08/21/22 08/21/22 08/21/22 Range/Units 15:01 16:29 17:22 Sodium 128 L (137-145) mmol/L Potassium 6.0 H (3.5-5.1) mmol/L Chloride 88 L (98-107) mmol/L BUN 60 H (7-17) mg/dL Creatinine 6.40 H (0.52-1.04) mg/dL Glucose 178 H (74-99) mg/dL POC Glucose (mg/dL) 137 H 181 H (70-110) mg/dL 08/21/22 08/21/22 08/21/22 Range/Units 19:34 19:50 21:50 Sodium (137-145) mmol/L Potassium (3.5-5.1) mmol/L Chloride (98-107) mmol/L BUN (7-17) mg/dL Creatinine (0.52-1.04) mg/dL Glucose (74-99) mg/dL POC Glucose (mg/dL) 43 L 139 H 111 H (70-110) mg/dL 08/22/22 08/22/22 08/22/22 Range/Units 00:35 01:48 04:17 Sodium 129 L (137-145) mmol/L Potassium 5.6 H (3.5-5.1) mmol/L Chloride 87 L (98-107) mmol/L BUN 73 H (7-17) mg/dL Creatinine 6.88 H (0.52-1.04) mg/dL Glucose 209 H (74-99) mg/dL POC Glucose (mg/dL) 346 H 468 H (70-110) mg/dL 08/22/22 08/22/22 08/22/22 Range/Units 05:12 07:06 11:21 Sodium (137-145) mmol/L Potassium (3.5-5.1) mmol/L Chloride (98-107) mmol/L BUN (7-17) mg/dL Creatinine (0.52-1.04) mg/dL Glucose (74-99) mg/dL POC Glucose (mg/dL) 284 H 291 H 39 L (70-110) mg/dL 08/22/22 Range/Units 11:38 Sodium (137-145) mmol/L Potassium (3.5-5.1) mmol/L Chloride (98-107) mmol/L BUN (7-17) mg/dL Creatinine (0.52-1.04) mg/dL Glucose (74-99) mg/dL POC Glucose (mg/dL) 181 H (70-110) mg/dL Assessment and Plan Assessment: 1. End-stage renal disease maintained on hemodialysis on Monday schedule. 2. Hypertension with chronic kidney disease. Stable. 3. Brittle diabetes mellitus. 4. Hyperkalemia secondary to chronic kidney disease and hyperglycemia. Improved postdialysis and with blood glucose control. 5. Volume overload. Improved post ultrafiltration. 6. Anemia of chronic kidney disease. Iron deficiency noted. Receiving IV iron. Status post blood transfusion and IV DDAVP this admission. On Aranesp. 7. History of pericardial effusion. 8. Chronic kidney disease mineral bone disease maintained on PhosLo Plan: Reassessed tomorrow for need for hemodialysis depending on volume status. Control of blood sugars as per primary service Re educated regarding fluid intake
[2022-08-22 13:21] LABS: Glucose,Whole Blood 127 mg/dL (70-110)
[2022-08-22 13:24] VITALS: BMI 18.1
[2022-08-22] MEDS: ALBUTEROL HFA INHALER INHALATION PRN (14:54)
[2022-08-22 16:36] LABS: Glucose,Whole Blood 66 mg/dL (70-110)
[2022-08-22 16:57] LABS: Glucose,Whole Blood 125 mg/dL (70-110)
[2022-08-22 20:24] LABS: Glucose,Whole Blood 495 mg/dL (70-110)
[2022-08-22] MEDS: MELATONIN 5 MG TABLET PO SCH (21:09)
[2022-08-23] MEDS: diphenhydrAMINE 50 MG/ML 1 ML VIAL IVP PRN ×4 (00:04→17:38)
[2022-08-23 02:07] LABS: Glucose,Whole Blood 532 mg/dL (70-110)
[2022-08-23] MEDS: INSULIN ASPART (NovoLOG) 100 UNIT/ML VIAL SQ SCH ×7 (02:09→17:52)
[2022-08-23] MEDS: hydrALAZINE HCL 20 MG/ML 1 ML VIAL IVP SCH ×2 (04:54→08:42)
[2022-08-23 06:20] LABS: Glucose,Whole Blood 271 mg/dL (70-110)
[2022-08-23 06:21] LABS: Anisocytosis Slight; HCT 23.9 % (34.0-46.0); HGB 8.2 gm/dL (11.4-16.0); MCH 28.7 pg (25.0-35.0); MCHC 34.5 g/dL (31.0-37.0); MCV 83.1 fL (80.0-100.0); Mean Platelet Volume 8.5; Platelet Count 248 k/uL (150-450); RBC 2.88 m/uL (3.80-5.40); RDW 16.5 % (11.5-15.5); WBC 4.9 k/uL (3.8-10.6)
[2022-08-23] MEDS: CALCIUM ACETATE 667 MG TAB PO SCH ×3 (06:23→17:52)
[2022-08-23] MEDS: carvediloL 12.5 MG TAB PO SCH ×2 (06:23→17:52)
[2022-08-23] MEDS: PANTOPRAZOLE 40 MG TABLET PO SCH (06:23)
--- NOTE | 2022-08-23 07:00 | PN ---
PROGRESS NOTE DATE OF SERVICE: 08/22/2022 CHIEF COMPLAINT: Uncontrolled diabetes, hypertension, renal failure, and hyperkalemia. HISTORY OF PRESENT ILLNESS: This lady is about the same. Last night, her blood pressure was quite high as was her potassium. Blood sugars are still fluctuating. She has been nauseated and has been vomiting. PHYSICAL EXAMINATION: VITAL SIGNS: At the present time, her blood pressure is under control. CHEST: Clear. CARDIAC: Normal. IMPRESSION: 1. Poorly controlled hypertension. 2. Poorly controlled type 1 insulin-dependent diabetes mellitus. 3. Stage 5 chronic kidney disease. 4. Hyperkalemia. 5. Diabetic retinopathy with blindness. PLAN: She will be dialyzed today to assure that her potassium is under control. MMODL / IJN: [id number] /
[2022-08-23 07:21] LABS: Glucose,Whole Blood 141 mg/dL (70-110)
[2022-08-23] MEDS: ASPIRIN 81 MG PO SCH (08:41)
[2022-08-23] MEDS: DULoxetine HCL 30 MG CAPSULE.DR PO SCH (08:41)
[2022-08-23] MEDS: buPROPion SR 150 MG TABLET.ER PO SCH (08:41)
[2022-08-23] MEDS: ESCITALOPRAM 20 MG TAB PO SCH (08:41)
[2022-08-23] MEDS: ATORVASTATIN 40 MG TAB PO SCH (08:41)
[2022-08-23] MEDS: INSULIN DETEMIR (LEVEMIR) 100 UNIT/ML SYR SQ SCH (08:41)
[2022-08-23] MEDS: CYANOCOBALAMIN 500 MCG TAB PO SCH (08:41)
[2022-08-23] MEDS: TORSEMIDE 20 MG TAB PO SCH (08:42)
[2022-08-23] MEDS: ALBUTEROL HFA INHALER INHALATION PRN (09:15)
--- NOTE | 2022-08-23 09:25 | P.PN ---
Subjective Progress Note Date: 08/23/22 31-year-old female who presents to the emergency department on August 14. She presented with low blood pressure. The patient is well-known to our service, and has a history of end-stage renal disease. She does have hemodialysis, 3 times a week, typically Monday, Monday, and Monday. She was seen in the emergency department, for a low blood pressure, in the 80s systolic. She denies any chest pain or palpitations. She also denied any difficulty breathing. She was seen in the ER, and admitted to the hospital. The patient has really had 3 admissions to the hospital this year already, and in 2021, had 21 admissions to this hospital. Today, a cousin with low blood pressure, elevated potassium, and shortness of breath, she was transferred from the general medical floor, to the intensive care unit. She had hemodialysis today, and 2 L was removed. She was initially on 6 L of oxygen, and his been weaned down to 4 L. She's not receiving any IV fluids. Also, earlier today, her potassium level was 7.6, and today, it before dialysis, it was 5.6. She's feeling much better. Also, her blood pressure is much improved, running 131/77, when last checked. Current labs include a white count of 3.8, hemoglobin 8.6, hematocrit 27.5, and a normal platelet count. Sodium 135, potassium 5.6, chlorides 93, CO2 23, anion gap 19, BUN 64, and creatinine 4.45. She has not had a chest x-ray on this admission. On today's evaluation of 08/22/2022, the patient is awake and alert and she is communicating. She is undergoing hemodialysis. No significant respiratory difficulties for now. The patient overnight had issues with elevated blood pressure. BP was as high as 201/96 and currently is down to 165/84. The patient also had some limited hypoglycemia with a blood sugar dropping down to 4 3. The patient was given D50 half an amp and subsequent blood sugars improved. Currently sedated on 3 L of oxygen by nasal cannula. She is going to undergo hemodialysis. Last night, she was placed on 10 L the patient was also found to be hypoxic. The bloodwork was noted. Potassium levels at 5.6 with a sodium level of 129, BUN 73 with a creatinine of 6.8. Blood sugars at 181. On today's evaluation of 08/15/2022, the patient is stable on 2 L of oxygen by nasal cannula. She underwent hemodialysis yesterday. Potassium level is down to 5. Blood sugars under adequate control. Hemoglobin is at 8.2. White cell count at 4.9. No other significant events overnight. No episodes of hypogly cemia. Objective - Vital Signs Vital signs: Vital Signs Temp 98.5 F 08/23/22 08:35 Pulse 85 08/23/22 08:35 Resp 16 08/23/22 08:35 BP 143/76 08/23/22 08:35 Pulse Ox 97 08/23/22 09:15 FiO2 Intake & Output 08/22/22 08/23/22 08/23/22 18:59 06:59 18:59 Intake Total 540 Output Total 5000 Balance -4460 Weight 47.9 kg 45.5 kg Intake: Oral 240 Hemodialysis 300 Output: Hemodialysis 5000 Other: Voiding Method Toilet Toilet # Voids 0 - Exam No acute distress, oriented 3. Seen today in room 264. . No conversational dyspnea, use of accessory muscles, or any audible wheezing. Currently on 2 L of oxygen by nasal cannula HEENT examination is grossly unremarkable. Neck supple. Full range of motion. No adenopathy thyromegaly or neck vein distention. Cardiovascular examination reveals regular rhythm rate. S1-S2 normal. No S3 or S4. No discernible murmur noted. Heart sounds are distant. Lungs reveal scattered rhonchi and crackles. Breath sounds equal. No wheezes Abdomen soft bowel sounds are heard. No masses or tenderness. Extremities are intact. No cyanosis clubbing or edema. Skin is without rash or lesion. Neurologic examination is brief but nonfocal. - Labs CBC & Chem 7: 08/23/22 06:15 08/23/22 06:15 Labs: Abnormal Lab Results - Last 24 Hours (Table) 08/22/22 08/22/22 08/22/22 Range/Units 11:21 11:38 13:05 RBC (3.80-5.40) m/uL Hgb (11.4-16.0) gm/dL Hct (34.0-46.0) % RDW (11.5-15.5) % Sodium (137-145) mmol/L Chloride (98-107) mmol/L BUN (7-17) mg/dL Creatinine (0.52-1.04) mg/dL Glucose (74-99) mg/dL POC Glucose (mg/dL) 39 L 181 H 30 L (70-110) mg/dL 08/22/22 08/22/22 08/22/22 Range/Units 13:19 16:34 16:56 RBC (3.80-5.40) m/uL Hgb (11.4-16.0) gm/dL Hct (34.0-46.0) % RDW (11.5-15.5) % Sodium (137-145) mmol/L Chloride (98-107) mmol/L BUN (7-17) mg/dL Creatinine (0.52-1.04) mg/dL Glucose (74-99) mg/dL POC Glucose (mg/dL) 127 H 66 L 125 H (70-110) mg/dL 08/22/22 08/23/22 08/23/22 Range/Units 20:23 02:05 06:15 RBC 2.88 L (3.80-5.40) m/uL Hgb 8.2 L (11.4-16.0) gm/dL Hct 23.9 L (34.0-46.0) % RDW 16.5 H (11.5-15.5) % Sodium (137-145) mmol/L Chloride (98-107) mmol/L BUN (7-17) mg/dL Creatinine (0.52-1.04) mg/dL Glucose (74-99) mg/dL POC Glucose (mg/dL) 495 H 532 H (70-110) mg/dL 08/23/22 08/23/22 08/23/22 Range/Units 06:15 06:19 07:20 RBC (3.80-5.40) m/uL Hgb (11.4-16.0) gm/dL Hct (34.0-46.0) % RDW (11.5-15.5) % Sodium 133 L (137-145) mmol/L Chloride 94 L (98-107) mmol/L BUN 37 H (7-17) mg/dL Creatinine 4.73 H (0.52-1.04) mg/dL Glucose 221 H (74-99) mg/dL POC Glucose (mg/dL) 271 H 141 H (70-110) mg/dL Assessment and Plan Plan: Acute hyperkalemia, hyperglycemia, and hypotension, status post acute hemodialysis (08/18/2022), the patient is post hemodialysis yesterday and the potassium has normalized. She has another dialysis session tomorrow Acute hypertensive emergency, current blood pressures under better control and the patient undergoing hemodialysis, currently inactive and stable Acute hypoxic respiratory failure, currently weaned down to 2 L O2 nasal cannula Recurrent episodes of hypoglycemia, currently inactive and stable End-stage renal disease, currently on Monday, Monday, Monday hemodialysis. History of CVA. History of diabetes mellitus, with diabetic neuropathy and retinopathy. History of hypertension. Prior history of cardiopulmonary arrest. History of restless leg syndrome. Anemia of chronic disease. History of anxiety/depression. Plan: Hemodialysis was done yesterday and the patient's condition is stable Oxygen patient is stable at 2 L Potassium level is normalized No hypoglycemic events Evaluate for home O2 Monitor blood pressure and the patient is currently on Coreg 12.5 mg by mouth twice a day, clonidine 0.1 mg on a as-needed basis and she is also taking Demadex 20 mg by mouth twice a day. She is on Procardia XL 60 mg by mouth twice a day. She is taking hydralazine 50 mg IV every 8 hours. Monitor the blood sugar and give Levemir as long as the patient is able to tolerate her diet. She is on 12 units of Levemir in the morning along with 6 units with meals and bedtime plus a sliding scale coverage Continue rest of the home medications and will continue to follow
--- NOTE | 2022-08-23 11:28 | P.PN ---
Subjective Patient is seen for follow-up for end-stage renal disease. Patient denies any complaints today. Status post 5 L of ultrafiltration yesterday. Blood pressure was elevated again this morning with systolic around 1 70 mmHg. Patient will be dialyzed again today for a short treatment with UF of about 3 L today. Objective - Vital Signs Vital signs: Vital Signs Temp 98.5 F 08/23/22 08:35 Pulse 85 08/23/22 08:35 Resp 16 08/23/22 08:35 BP 143/76 08/23/22 08:35 Pulse Ox 97 08/23/22 09:15 FiO2 Intake & Output 08/22/22 08/23/22 08/23/22 18:59 06:59 18:59 Intake Total 540 Output Total 5000 Balance -4460 Weight 47.9 kg 45.5 kg Intake: Oral 240 Hemodialysis 300 Output: Hemodialysis 5000 Other: Voiding Method Toilet Toilet Toilet # Voids 0 - Exam Patient is awake, comfortable, no acute distress Examination of the heart S1 and S2 Examination of the lungs bilateral breath sounds are heard Abdomen is soft nontender Examination of lower extremities shows no significant edema Patient is legally blind - Labs CBC & Chem 7: 08/23/22 06:15 08/23/22 06:15 Labs: Abnormal Lab Results - Last 24 Hours (Table) 08/22/22 08/22/22 08/22/22 Range/Units 11:38 13:05 13:19 RBC (3.80-5.40) m/uL Hgb (11.4-16.0) gm/dL Hct (34.0-46.0) % RDW (11.5-15.5) % Sodium (137-145) mmol/L Chloride (98-107) mmol/L BUN (7-17) mg/dL Creatinine (0.52-1.04) mg/dL Glucose (74-99) mg/dL POC Glucose (mg/dL) 181 H 30 L 127 H (70-110) mg/dL 08/22/22 08/22/22 08/22/22 Range/Units 16:34 16:56 20:23 RBC (3.80-5.40) m/uL Hgb (11.4-16.0) gm/dL Hct (34.0-46.0) % RDW (11.5-15.5) % Sodium (137-145) mmol/L Chloride (98-107) mmol/L BUN (7-17) mg/dL Creatinine (0.52-1.04) mg/dL Glucose (74-99) mg/dL POC Glucose (mg/dL) 66 L 125 H 495 H (70-110) mg/dL 08/23/22 08/23/22 08/23/22 Range/Units 02:05 06:15 06:15 RBC 2.88 L (3.80-5.40) m/uL Hgb 8.2 L (11.4-16.0) gm/dL Hct 23.9 L (34.0-46.0) % RDW 16.5 H (11.5-15.5) % Sodium 133 L (137-145) mmol/L Chloride 94 L (98-107) mmol/L BUN 37 H (7-17) mg/dL Creatinine 4.73 H (0.52-1.04) mg/dL Glucose 221 H (74-99) mg/dL POC Glucose (mg/dL) 532 H (70-110) mg/dL 08/23/22 08/23/22 Range/Units 06:19 07:20 RBC (3.80-5.40) m/uL Hgb (11.4-16.0) gm/dL Hct (34.0-46.0) % RDW (11.5-15.5) % Sodium (137-145) mmol/L Chloride (98-107) mmol/L BUN (7-17) mg/dL Creatinine (0.52-1.04) mg/dL Glucose (74-99) mg/dL POC Glucose (mg/dL) 271 H 141 H (70-110) mg/dL Assessment and Plan Assessment: 1. End-stage renal disease maintained on hemodialysis on Monday schedule. 2. Hypertension with chronic kidney disease. Stable. 3. Brittle diabetes mellitus. 4. Hyperkalemia secondary to chronic kidney disease and hyperglycemia. Improved postdialysis and with blood glucose control. 5. Volume overload. Improved post ultrafiltration. 6. Anemia of chronic kidney disease. Iron deficiency noted. Receiving IV iron. Status post blood transfusion and IV DDAVP this admission. On Aranesp. 7. History of pericardial effusion. 8. Chronic kidney disease mineral bone disease maintained on PhosLo Plan: Short treatment of hemodialysis today with UF of about 3 L as tolerated. Patient can be discharged post hemodialysis Control of blood sugars as per primary service Re educated regarding fluid intake
[2022-08-23 11:37] LABS: Glucose,Whole Blood 89 mg/dL (70-110)
[2022-08-23 14:39] VITALS: BP 129/66; PULSE 79; RESP 20; TEMP 98
[2022-08-23 16:28] LABS: Glucose,Whole Blood 103 mg/dL (70-110)
--- NOTE | 2022-08-23 21:39 | DS ---
DISCHARGE SUMMARY CHIEF COMPLAINT: Hypotension. HISTORY OF PRESENT ILLNESS AND PHYSICAL EXAMINATION: Details of this lady's history and physical can be found in the initial workup. LABORATORY STUDIES: While she was in the hospital, she had laboratory studies, details of which can be found in the laboratory section of her chart. COURSE IN THE HOSPITAL: After admission, she was placed on bedrest, started on intravenous fluids and dialysis. Medications were adjusted to deal with her hypotension. Eventually, her blood pressure came up and started to elevate. While in the hospital, her blood sugars fluctuated all over the place as usual. Her potassium also became a problem once in a while. She was doing fairly well and stable enough. It was felt that she could be discharged on the . She will go home on her usual activity, diet, medications, and will follow up in the office in several days. She will continue with dialysis and she will continue with home care. FINAL DIAGNOSES: 1. Hypotension. 2. Elevated troponin. 3. Stage 5 chronic kidney disease. 4. Uncontrolled hypertension. 5. Uncontrolled type 1 insulin-dependent diabetes mellitus. 6. Depression. 7. Diabetic retinopathy with blindness. OPERATIONS: None. CONSULTATIONS: Nephrology. MMODL / IJN: [id number] /
[2022-08-27] MEDS ORDERED: ERGOCALCIFEROL 1,250 MCG (50,000 IU) CAPSULE PO SCH (09:00)
== END 2022-08-23 18:08 | disposition home health service (06) | DRG 314 ==
LOC: EC 10:17 → 3SCARD 13:05 → 2SICU 08-18 09:43 → 3SCARD 08-19 20:55
PROVIDERS: ADMIT Family Medicine; ATTEND Family Medicine
PROC: 5A1D70Z Performance of Urinary Filtration, Intermittent, Less than 6 Hours Per Day (ICD-10-PCS; 2022-08-15)
PROC: 30233N1 Transfusion of Nonautologous Red Blood Cells into Peripheral Vein, Percutaneous Approach (ICD-10-PCS; principal; 2022-08-17)
PROC: 3E033XZ Introduction of Vasopressor into Peripheral Vein, Percutaneous Approach (ICD-10-PCS; 2022-08-18)
PROC: 05HY33Z Insertion of Infusion Device into Upper Vein, Percutaneous Approach (ICD-10-PCS; 2022-08-18)
DX: I95.9 Hypotension, unspecified (principal); J96.01 Acute respiratory failure with hypoxia; N18.6 End stage renal disease; I31.39 Other pericardial effusion (noninflammatory); I50.32 Chronic diastolic (congestive) heart failure; I13.2 Hypertensive heart and chronic kidney disease with heart failure and with stage 5 chronic kidney disease, or end stage renal disease; I16.1 Hypertensive emergency; T50.915A Adverse effect of multiple unspecified drugs, medicaments and biological substances, initial encounter; E10.22 Type 1 diabetes mellitus with diabetic chronic kidney disease; M89.8X9 Other specified disorders of bone, unspecified site; E10.40 Type 1 diabetes mellitus with diabetic neuropathy, unspecified; D63.1 Anemia in chronic kidney disease; E87.5 Hyperkalemia; R00.1 Bradycardia, unspecified; E10.649 Type 1 diabetes mellitus with hypoglycemia without coma; E10.65 Type 1 diabetes mellitus with hyperglycemia; R77.8 Other specified abnormalities of plasma proteins; G25.81 Restless legs syndrome; F32.A Depression, unspecified; E61.1 Iron deficiency; E10.319 Type 1 diabetes mellitus with unspecified diabetic retinopathy without macular edema; H54.8 Legal blindness, as defined in USA; Z99.2 Dependence on renal dialysis; Z79.4 Long term (current) use of insulin; Z86.74 Personal history of sudden cardiac arrest; Z86.73 Personal history of transient ischemic attack (TIA), and cerebral infarction without residual deficits; Z79.899 Other long term (current) drug therapy; Z79.82 Long term (current) use of aspirin; Z91.041 Radiographic dye allergy status
CPT/HCPCS: 36410; 36415; 71045; 76937; 80048; 80053; 82728; 82947; 83540; 83550; 83735; 84132; 84484; 85025; 85027; 85610; 85730; 86850; 86900; 86901; 86920; 90935; 93005; 94640; 94760; 96365; 99285

== ENCOUNTER 2022-09-03 08:50 | Emergency (ER) | payer MEDICARE, OTHER ==
[2022-09-03 09:01] VITALS: BP 142/76; PULSE 81; RESP 22; TEMP 97.7
[2022-09-03 09:28] LABS: Basophils # (A) 0.1 k/uL (0-0.2); Basophils % (A) 1 %; Eosinophils # (A) 0.4 k/uL (0-0.7); Eosinophils % (A) 6 %; HGB 8.5 gm/dL (11.4-16.0); Lymphocytes # (A) 0.9 k/uL (1.0-4.8); Lymphocytes % (A) 14 %; MCHC 32.5 g/dL (31.0-37.0); Mean Platelet Volume 8.6; Monocytes # (A) 0.3 k/uL (0-1.0); Monocytes % (A) 4 %; Neutrophils # (A) 5.1 k/uL (1.3-7.7); Neutrophils % (A) 74 %; Platelet Count 403 k/uL (150-450); RBC 3.03 m/uL (3.80-5.40); RDW 15.7 % (11.5-15.5); WBC 6.8 k/uL (3.8-10.6)
[2022-09-03 09:37] LABS: Prothrombin Time 10.4 sec (9.0-12.0)
[2022-09-03 09:51] LABS: Albumin 4.7 g/dL (3.5-5.0); Calcium 9.6 mg/dL (8.4-10.2); Potassium 4.3 mmol/L (3.5-5.1); Total Bilirubin 0.6 mg/dL (0.2-1.3); Total Protein 7.9 g/dL (6.3-8.2)
--- NOTE | 2022-09-03 10:07 | ED ---
General Adult HPI - General Chief complaint: Recheck/Abnormal Lab/Rx Stated complaint: Infusion Time Seen by Provider: 09/03/22 09:00 Source: patient, RN notes reviewed, old records reviewed Mode of arrival: ambulatory Limitations: no limitations - History of Present Illness Initial comments: This is a 31-year-old female presents to the emergency department she states that her hemoglobin was 6.5 yesterday after dialysis and she was told to come the emergency department. Patient states she has no symptoms other than feeling a little bit tired but she always feels a little tired. Patient denies any chest pain palpitations difficulty breathing shortness of breath per patient denies any recent fever chills or cough per patient denies any abdominal pain patient denies nausea vomiting diarrhea. - Related Data Home Medications Medication Instructions Recorded Confirmed carvediloL [Coreg] 25 mg PO BID 04/03/21 08/14/22 Escitalopram [Lexapro] 20 mg PO DAILY 04/17/21 08/14/22 Aspirin 81 mg PO DAILY 12/06/21 08/14/22 NIFEdipine XL [Procardia XL] 60 mg PO BID 12/06/21 08/14/22 Melatonin [Melatonin Dissolving 10 mg PO HS 12/21/21 08/14/22 Tablet] Lidocaine-Prilocaine Cream [Emla 1 applic TOPICAL MOWEFR PRN 02/09/22 08/14/22 Cream 2.5%/2.5%] buPROPion SR [Wellbutrin SR] 150 mg PO BID 02/09/22 08/14/22 DULoxetine HCL [Cymbalta] 30 mg PO DAILY 06/19/22 08/14/22 Ondansetron [Zofran] 4 mg PO TID PRN 06/19/22 08/14/22 Pantoprazole Sodium [Protonix] 20 mg PO DAILY 06/19/22 08/14/22 Torsemide [Demadex] 20 mg PO BID 06/19/22 08/14/22 rOPINIRole HCL [Requip] 1 mg PO TID 06/19/22 08/14/22 Albuterol Inhaler [Ventolin Hfa 2 puff INHALATION RT-QID PRN 07/11/22 08/14/22 Inhaler] Insulin Aspart [NovoLOG Flexpen] 6 units SQ AC-TID 07/11/22 08/14/22 Ergocalciferol (Vitamin D2) 1,250 mcg PO Q30D 08/14/22 08/14/22 [Drisdol (50,000 Iu)] Previous Rx's Medication Instructions Recorded Glucagon Emergency Kit 1 mg IM ONCE PRN #1 kit 06/15/21 Cyanocobalamin [Vitamin B-12] 1,000 mcg PO DAILY #60 tab 09/06/21 Atorvastatin [Lipitor] 40 mg PO DAILY 30 Days #30 tab 10/13/21 Calcium Acetate [PhosLo] 667 mg PO TID-W/MEALS 30 Days #90 10/13/21 tab LORazepam [Ativan] 1 mg PO TID PRN #90 tab 12/09/21 hydrOXYzine HCL [Atarax] 25 mg PO TID PRN #90 tab 12/09/21 traZODone HCL [Desyrel] 50 mg PO HS PRN #30 tab 04/19/22 Darbepoetin Tate [Aranesp] 40 mcg SQ Q7D each 07/02/22 Insulin Detemir (Levemir) [Levemir] 12 unit SQ DAILY@0700 #30 each 07/02/22 cloNIDine HCL [Catapres] 0.3 mg PO TID #90 tab 07/19/22 cloNIDine HCL [Catapres] 0.1 mg PO Q8HR PRN #90 tab 08/23/22 Allergies Allergy/AdvReac Type Severity Reaction Status Date / Time Fish Containing Products Allergy Rash/Hives Verified 09/03/22 09:01 [Fish] iodine Allergy Anaphylaxis Verified 09/03/22 09:01 Review of Systems ROS Statement: Those systems with pertinent positive or pertinent negative responses have been documented in the HPI. ROS Other: All systems not noted in ROS Statement are negative. Past Medical History Past Medical History: CVA/TIA, Diabetes Mellitus, Dialysis, Eye Disorder, Hypertension, Renal Disease Additional Past Medical History / Comment(s): cardiac arrest, respiratory failure requiring mechanical ventilation, ESRD with hemodialysis M/W/F, IDDM type 1, DKA, neuropathy bilateral legs/feet, diabetic retinopathy/legally blind, RLS, gastritis, severe hypokalemia, fluid retention in abdomin/legs. History of Any Multi-Drug Resistant Organisms: None Reported Past Surgical History: Appendectomy, Section, Cholecystectomy Additional Past Surgical History / Comment(s): fistula left arm Past Anesthesia/Blood Transfusion Reactions: No Reported Reaction Additional Past Anesthesia/Blood Transfusion Reaction / Comment(s): Last PRBC transfusion 07/27/22 Past Psychological History: Anxiety, Depression Smoking Status: Never smoker Past Alcohol Use History: None Reported Past Drug Use History: None Reported - Past Family History Mother History Unknown: Yes Family Medical History: Cancer, Hypertension Additional Family Medical History / Comment(s): Thyroid cancer, bipolar Father History Unknown: Yes Family Medical History: Seizure Disorder Additional Family Medical History / Comment(s): Epilepsy General Exam - General Exam Comments Initial Comments: GENERAL: Patient is well-developed and well-nourished. Patient is nontoxic and well- hydrated and is in no acute distress. ENT: Neck is soft and supple. No significant lymphadenopathy is noted. Oropharynx is clear. Moist mucous membranes. Neck has full range of motion without eliciting any pain. EYES: The sclera were anicteric and conjunctiva were pink and moist. Extraocular movements were intact and pupils were equal round and reactive to light. Eyelids were unremarkable. PULMONARY: Unlabored respirations. Good breath sounds bilaterally. No audible rales rhonchi or wheezing was noted. CARDIOVASCULAR: There is a regular rate and rhythm without any murmurs gallops or rubs. ABDOMEN: Soft and nontender with normal bowel sounds. SKIN: Skin is clear with no lesions or rashes and otherwise unremarkable. NEUROLOGIC: Patient is alert and oriented x3. Cranial nerves II through XII are grossly i ntact. Motor and sensory are also intact. Normal speech, volume and content. Symmetrical smile. MUSCULOSKELETAL: Normal extremities with adequate strength and full range of motion. LYMPHATICS: No significant lymphadenopathy is noted PSYCHIATRIC: Normal psychiatric evaluation. Limitations: no limitations Course Vital Signs 09/03/22 09:00 Temperature 97.7 F Pulse Rate 81 Respiratory 22 Rate Blood Pressure 142/76 O2 Sat by Pulse 94 L Oximetry Medical Decision Making - Medical Decision Making Was pt. sent in by a medical professional or institution (, PA, CHRONIC MANAGER, urgent care, hospital, or senior living...) When possible be specific @ -No Did you speak to anyone other than the patient for history (EMS, parent, family, police, friend...)? What history was obtained from this source @ -No Did you review nursing and triage notes (agree or disagree)? Why? @ -I reviewed and agree with nursing and triage notes Were old charts reviewed (outside hosp., previous admission, EMS record, old EKG, old radiological studies, urgent care reports/EKG's, senior living records)? Report findings @ -I reviewed prior lab work and charts on this patient Differential Diagnosis (chest pain, altered mental status, abdominal pain women, abdominal pain men, vaginal bleeding, weakness, fever, dyspnea, syncope, headache, dizziness, GI bleed, back pain, seizure, CVA, palpatations, mental health, musculoskeletal)? @ -Differential Weakness: Hypoglycemia, shock, sepsis, hyponatremia, anemia, infection, WI, ETOH, adverse medicine reaction, overdose, stroke, this is not meant to be an all-inclusive list. EKG interpreted by me (3pts min.). @ -As above X-rays interpreted by me (1pt min.). @ -None done CT interpreted by me (1pt min.). @ -None done U/S interpreted by me (1pt. min.). @ -None done What testing was considered but not performed or refused? (CT, X-rays, U/S, labs)? Why? @ -None What meds were considered but not given or refused? Why? @ -None Did you discuss the management of the patient with other professionals (professionals i.e. , PA, CHRONIC MANAGER, lab, RT, psych nurse, social science professor, bow maker machine tender, teacher, admissions officer, major case detective)? Give summary @ -No Was smoking cessation discussed for >3mins.? @ -No Was critical care preformed (if so, how long)? @ -No Were there social determinants of health that impacted care today? How? (Homelessness, low income, unemployed, alcoholism, drug addiction, transportation, low edu. Level, literacy, decrease access to med. care, [facility], rehab)? @ -No Was there de-escalation of care discussed even if they declined (Discuss DNR or withdrawal of care, Hospice)? DNR status @ -No What co-morbidities impacted this encounter? (DM, HTN, Smoking, COPD, CAD, Cancer, CVA, ARF, Chemo, Hep., AIDS, mental health diagnosis, sleep apnea, morbid obesity)? @ -None Was patient admitted / discharged? Hospital course, mention meds given and route, prescriptions, significant lab abnormalities, going to OR and other pertinent info. @ -Patient came in for low hemoglobin however her hemoglobin was 8.5 which is her baseline. When I told the patient that she stated she felt good enough to go home and the fatigue is probably just her baseline fatigue. Patient has no other symptoms at this time. Undiagnosed new problem with uncertain prognosis? @ -No Drug Therapy requiring intensive monitoring for toxicity (Heparin, Nitro, Insulin, Cardizem)? @ -No Were any procedures done? @ -No Diagnosis/symptom? @ -Anemia Acute, or Chronic, or Acute on Chronic? @ -Chronic Uncomplicated (without systemic symptoms) or Complicated (systemic symptoms)? @ -Uncomplicated Side effects of treatment? @ -No Exacerbation, Progression, or Severe Exacerbation? @ -No Poses a threat to life or bodily function? How? (Chest pain, [place], [place], pneumonia, PE, COPD, DKA, ARF, appy, cholecystitis, CVA, Diverticulitis, Homicidal, Suicidal, threat to staff... and all critical care pts) @ -No - Lab Data Result diagrams: 09/03/22 09:12 09/03/22 09:12 Lab Results 09/03/22 09/03/22 09/03/22 Range/Units 09:12 09:12 09:12 WBC 6.8 (3.8-10.6) k/uL RBC 3.03 L (3.80-5.40) m/uL Hgb 8.5 L (11.4-16.0) gm/dL Hct 26.0 L (34.0-46.0) % MCV 86.0 (80.0-100.0) fL MCH 28.0 (25.0-35.0) pg MCHC 32.5 (31.0-37.0) g/dL RDW 15.7 H (11.5-15.5) % Plt Count 403 (150-450) k/uL MPV 8.6 Neutrophils % 74 % Lymphocytes % 14 % Monocytes % 4 % Eosinophils % 6 % Basophils % 1 % Neutrophils # 5.1 (1.3-7.7) k/uL Lymphocytes # 0.9 L (1.0-4.8) k/uL Monocytes # 0.3 (0-1.0) k/uL Eosinophils # 0.4 (0-0.7) k/uL Basophils # 0.1 (0-0.2) k/uL PT 10.4 (9.0-12.0) sec INR 1.0 (<1.2) APTT 25.0 (22.0-30.0) sec Sodium 133 L (137-145) mmol/L Potassium 4.3 (3.5-5.1) mmol/L Chloride 88 L (98-107) mmol/L Carbon Dioxide 26 (22-30) mmol/L Anion Gap 19 mmol/L BUN 43 H (7-17) mg/dL Creatinine 3.77 H (0.52-1.04) mg/dL Est GFR (CKD-EPI)AfAm 17 (>60 ml/min/1.73 sqM) Est GFR (CKD-EPI)NonAf 15 (>60 ml/min/1.73 sqM) Glucose 370 H (74-99) mg/dL Plasma Lactic Acid Dio (0.7-2.0) mmol/L Calcium 9.6 (8.4-10.2) mg/dL Total Bilirubin 0.6 (0.2-1.3) mg/dL AST 26 (14-36) U/L ALT 24 (4-34) U/L Alkaline Phosphatase 229 H (38-126) U/L Total Protein 7.9 (6.3-8.2) g/dL Albumin 4.7 (3.5-5.0) g/dL 09/03/22 Range/Units 09:12 WBC (3.8-10.6) k/uL RBC (3.80-5.40) m/uL Hgb (11.4-16.0) gm/dL Hct (34.0-46.0) % MCV (80.0-100.0) fL MCH (25.0-35.0) pg MCHC (31.0-37.0) g/dL RDW (11.5-15.5) % Plt Count (150-450) k/uL MPV Neutrophils % % Lymphocytes % % Monocytes % % Eosinophils % % Basophils % % Neutrophils # (1.3-7.7) k/uL Lymphocytes # (1.0-4.8) k/uL Monocytes # (0-1.0) k/uL Eosinophils # (0-0.7) k/uL Basophils # (0-0.2) k/uL PT (9.0-12.0) sec INR (<1.2) APTT (22.0-30.0) sec Sodium (137-145) mmol/L Potassium (3.5-5.1) mmol/L Chloride (98-107) mmol/L Carbon Dioxide (22-30) mmol/L Anion Gap mmol/L BUN (7-17) mg/dL Creatinine (0.52-1.04) mg/dL Est GFR (CKD-EPI)AfAm (>60 ml/min/1.73 sqM) Est GFR (CKD-EPI)NonAf (>60 ml/min/1.73 sqM) Glucose (74-99) mg/dL Plasma Lactic Acid Dio 2.6 H* (0.7-2.0) mmol/L Calcium (8.4-10.2) mg/dL Total Bilirubin (0.2-1.3) mg/dL AST (14-36) U/L ALT (4-34) U/L Alkaline Phosphatase (38-126) U/L Total Protein (6.3-8.2) g/dL Albumin (3.5-5.0) g/dL Disposition Clinical Impression: Chronic anemia Disposition: HOME SELF-CARE Instructions (If sedation given, give patient instructions): Anemia (ED) Is patient prescribed a controlled substance at d/c from ED?: No Referrals: Roque Buckner MD [Primary Care Provider] - 1-2 days Time of Disposition: 10:06
== END 2022-09-03 10:27 | disposition home or self-care (01) ==
LOC: EC 08:50
DX: D64.9 Anemia, unspecified (principal); E11.22 Type 2 diabetes mellitus with diabetic chronic kidney disease; E11.319 Type 2 diabetes mellitus with unspecified diabetic retinopathy without macular edema; E11.40 Type 2 diabetes mellitus with diabetic neuropathy, unspecified; I12.0 Hypertensive chronic kidney disease with stage 5 chronic kidney disease or end stage renal disease; N18.6 End stage renal disease; F32.A Depression, unspecified; F41.9 Anxiety disorder, unspecified; Z79.4 Long term (current) use of insulin; Z79.82 Long term (current) use of aspirin; Z79.899 Other long term (current) drug therapy; Z86.73 Personal history of transient ischemic attack (TIA), and cerebral infarction without residual deficits; Z99.2 Dependence on renal dialysis; Z90.49 Acquired absence of other specified parts of digestive tract
CPT/HCPCS: 36415; 80053; 83605; 85025; 85610; 85730; 86850; 86900; 86901; 93005; 99284

== ENCOUNTER 2022-09-12 15:22 | Emergency (ER) | payer MEDICARE, OTHER ==
--- NOTE | 2022-09-12 15:45 | ED ---
Recheck HPI - General Source: patient <Julian Olivares - Last Filed: 09/12/22 15:43> - History of Present Illness Complaint: abnormal lab -: hour(s) Initial Visit For: other Returns Today for: Called Because of Abnormal Lab/Test Context: other Associated Symptoms: none <Subhash Garcia - Last Filed: 09/15/22 11:02> - General Stated Complaint: blood transfusion Time Seen by Provider: 09/12/22 15:44 - History of Present Illness Initial Comments: patient is a 31-year-old female who was sent over for low hemoglobin. Dialysis was completed today and Dr. Jovel sent her over for hemoglobin of 6.4. (Julian Olivares) Patient is a 31-year-old woman with history of diabetes and end-stage renal disease who is sent from dialysis. The patient received her treatment and was noted to have hemoglobin 6.4. She was sent here with the understanding to have transfusion. When questioned about symptoms, she states she gets short of breath if she does any walking. She feels well at rest, no chest pain, diaphoresis, dyspnea, alterations, lightheadedness, nausea or vomiting. She has not noted any bloody or tarry stools. (Subhash Garcia) - Related Data Home Medications Medication Instructions Recorded Confirmed carvediloL [Coreg] 25 mg PO BID 04/03/21 09/14/22 Escitalopram [Lexapro] 20 mg PO DAILY 04/17/21 09/14/22 Aspirin 81 mg PO DAILY 12/06/21 09/14/22 NIFEdipine XL [Procardia XL] 60 mg PO BID 12/06/21 09/14/22 Melatonin [Melatonin Dissolving 10 mg PO HS 12/21/21 09/14/22 Tablet] Lidocaine-Prilocaine Cream [Emla 1 applic TOPICAL MOWEFR PRN 02/09/22 09/14/22 Cream 2.5%/2.5%] buPROPion SR [Wellbutrin SR] 150 mg PO BID 02/09/22 09/14/22 DULoxetine HCL [Cymbalta] 30 mg PO DAILY 06/19/22 09/14/22 Ondansetron [Zofran] 4 mg PO TID PRN 06/19/22 09/14/22 Pantoprazole Sodium [Protonix] 20 mg PO DAILY 06/19/22 09/14/22 Torsemide [Demadex] 20 mg PO BID 06/19/22 09/14/22 rOPINIRole HCL [Requip] 1 mg PO TID 06/19/22 09/14/22 Albuterol Inhaler [Ventolin Hfa 2 puff INHALATION RT-QID PRN 07/11/22 09/14/22 Inhaler] Insulin Aspart [NovoLOG Flexpen] 6 units SQ AC-TID 07/11/22 09/14/22 Ergocalciferol (Vitamin D2) 1,250 mcg PO Q30D 08/14/22 09/14/22 [Drisdol (50,000 Iu)] Ofloxacin 0.3% Otic Soln [Floxin 5 - 10 drops LEFT EAR BID 09/12/22 09/14/22 0.3% Otic Soln] cloNIDine HCL 0.2 mg PO TID 09/12/22 09/14/22 hydrALAZINE HCL [Apresoline] 100 mg PO TID 09/12/22 09/14/22 Previous Rx's Medication Instructions Recorded Glucagon Emergency Kit 1 mg IM ONCE PRN #1 kit 06/15/21 Cyanocobalamin [Vitamin B-12] 1,000 mcg PO DAILY #60 tab 09/06/21 Atorvastatin [Lipitor] 40 mg PO DAILY 30 Days #30 tab 10/13/21 Calcium Acetate [PhosLo] 667 mg PO TID-W/MEALS 30 Days #90 10/13/21 tab LORazepam [Ativan] 1 mg PO TID PRN #90 tab 12/09/21 hydrOXYzine HCL [Atarax] 25 mg PO TID PRN #90 tab 12/09/21 traZODone HCL [Desyrel] 50 mg PO HS PRN #30 tab 04/19/22 Darbepoetin Tate [Aranesp] 40 mcg SQ Q7D each 07/02/22 Insulin Detemir (Levemir) [Levemir] 12 unit SQ DAILY@0700 #30 each 07/02/22 Allergies Allergy/AdvReac Type Severity Reaction Status Date / Time Fish Containing Products Allergy Rash/Hives Verified 09/14/22 07:45 [Fish] iodine Allergy Anaphylaxis Verified 09/14/22 07:45 Review of Systems ROS Other: All systems not noted in ROS Statement are negative. <Julian Olivares - Last Filed: 09/12/22 15:43> ROS Other: All systems not noted in ROS Statement are negative. Constitutional: Denies: fever, chills, weakness Respiratory: Denies: cough, dyspnea Cardiovascular: Reports: dyspnea on exertion. Denies: chest pain, palpitations, syncope Gastrointestinal: Denies: abdominal pain, nausea, vomiting, melena, hematochezia Genitourinary: Reports: other (Does not urinate) Musculoskeletal: Denies: back pain Skin: Denies: rash Neurological: Denies: headache, weakness <Subhash Garcia - Last Filed: 09/15/22 11:02> ROS Statement: Those systems with pertinent positive or pertinent negative responses have been documented in the HPI. Past Medical History Past Medical History: CVA/TIA, Diabetes Mellitus, Dialysis, Eye Disorder, Hypertension, Renal Disease Additional Past Medical History / Comment(s): cardiac arrest, respiratory failure requiring mechanical ventilation, ESRD with hemodialysis M/W/F, IDDM type 1, DKA, neuropathy bilateral legs/feet, diabetic retinopathy/legally blind, RLS, gastritis, severe hypokalemia, fluid retention in abdomin/legs. History of Any Multi-Drug Resistant Organisms: None Reported Past Surgical History: Appendectomy, Section, Cholecystectomy Additional Past Surgical History / Comment(s): fistula left arm Past Anesthesia/Blood Transfusion Reactions: No Reported Reaction Additional Past Anesthesia/Blood Transfusion Reaction / Comment(s): Last PRBC transfusion 07/27/22 Past Psychological History: Anxiety, Depression Smoking Status: Never smoker Past Alcohol Use History: None Reported Past Drug Use History: None Reported - Past Family History Mother History Unknown: Yes Family Medical History: Cancer, Hypertension Additional Family Medical History / Comment(s): Thyroid cancer, bipolar Father History Unknown: Yes Family Medical History: Seizure Disorder Additional Family Medical History / Comment(s): Epilepsy <Julian Olivares - Last Filed: 09/12/22 15:43> General Exam <Julian Olivares - Last Filed: 09/12/22 15:43> General appearance: alert, in no apparent distress Head exam: Present: atraumatic Eye exam: Present: normal appearance, other (Conjunctival pallor) ENT exam: Present: other (Mucosal pallor) Neck exam: Present: normal inspection Respiratory exam: Present: normal lung sounds bilaterally. Absent: respiratory distress, wheezes, rales, rhonchi, stridor Cardiovascular Exam: Present: regular rate, normal rhythm, normal heart sounds. Absent: systolic murmur, diastolic murmur, rubs, gallop GI/Abdominal exam: Present: soft. Absent: distended, tenderness, guarding, rebound, rigid, mass Extremities exam: Present: normal inspection, normal capillary refill Back exam: Present: normal inspection Neurological exam: Present: alert Skin exam: Present: warm, dry, intact, normal color. Absent: rash <Subhash Garcia - Last Filed: 09/15/22 11:02> - General Exam Comments Initial Comments: Visual Physical Exam Vital signs reviewed General: Well-appearing, nontoxic, no acute distress. Head: Normocephalic, atraumatic Eyes: PERRLA, EOMI ENT: Airway patent Chest: Nonlabored breathing Skin: No visual rash, normal skin tone Neuro: Alert and oriented 3 Musculoskeletal: No gross abnormalities (Julian Olivares) Course Vital Signs 09/12/22 09/12/22 09/12/22 15:43 20:09 21:47 Temperature 98.4 F Pulse Rate 89 85 85 Respiratory 18 19 18 Rate Blood Pressure 128/68 182/98 174/90 O2 Sat by Pulse 90 L 98 Oximetry 09/12/22 09/12/22 09/12/22 22:07 22:27 23:04 Temperature 97.2 F L 98.6 F Pulse Rate 87 84 87 Respiratory 18 19 15 Rate Blood Pressure 173/98 190/85 175/99 O2 Sat by Pulse 97 95 96 Oximetry 09/13/22 00:25 Temperature 97.4 F L Pulse Rate 85 Respiratory 19 Rate Blood Pressure 185/79 O2 Sat by Pulse 95 Oximetry Medical Decision Making - Lab Data Result diagrams: 09/12/22 16:24 09/12/22 16:24 <Subhash Garcia - Last Filed: 09/15/22 11:02> - Medical Decision Making This is a 31-year-old woman sent from her dialysis with the understanding she would have transfusion. It is confirmed that patient is anemic hemoglobin is 6.9. I discussed case with nephrology and they would like her to have transfusion and then they feel she is stable for discharge as she did have her regularly scheduled dialysis. The patient received transfusion, was feeling well and she requested discharge. Discussed appropriate further care and follow-up as well as return parameters. Was pt. sent in by a medical professional or institution ([facility], [facility], urgent care, hospital, or correction...) When possible be specific @ -[Sent from dialysis as above Did you speak to anyone other than the patient for history (EMS, parent, family, police, friend...)? What history was obtained from this source @ -[No] Did you review nursing and triage notes (agree or disagree)? Why? @ -[I reviewed and agree with nursing and triage notes] Were old charts reviewed (outside hosp., previous admission, EMS record, old EKG, old radiological studies, urgent care reports/EKG's, correction records)? Report findings @ -[No old charts were reviewed] Differential Diagnosis (chest pain, altered mental status, abdominal pain women, abdominal pain men, vaginal bleeding, weakness, fever, dyspnea, syncope, headache, dizziness, GI bleed, back pain, seizure, CVA, palpatations, mental health, musculoskeletal)? @ -[Differential diagnosis of anemia includes acute hemorrhage, anemia of chronic disease, renal failure, hemoglobinopathy, amongst other conditions EKG interpreted by me (3pts min.). @ -[ X-rays interpreted by me (1pt min.). @ -[None done] CT interpreted by me (1pt min.). @ -[None done] U/S interpreted by me (1pt. min.). @ -[None done] What testing was considered but not performed or refused? (CT, X-rays, U/S, labs)? Why? @ -[None] What meds were considered but not given or refused? Why? @ -[None] Did you discuss the management of the patient with other professionals (professionals i.e. [facility], [facility], lab, RT, psych nurse, social media marketer, car storer, teacher, ambulance officer, supervisor case loading)? Give summary @ -[The case is discussed with patient's bilingual teacher as above Was smoking cessation discussed for >3mins.? @ -[No] Was critical care preformed (if so, how long)? @ -[This 25 minutes Were there social determinants of health that impacted care today? How? (Homelessness, low income, unemployed, alcoholism, drug addiction, transportation, low edu. Level, literacy, decrease access to med. care, penitentiary, rehab)? @ -[No] Was there de-escalation of care discussed even if they declined (Discuss DNR or withdrawal of care, Hospice)? DNR status @ -[No] What co-morbidities impacted this encounter? (DM, HTN, Smoking, COPD, CAD, Cancer, CVA, ARF, Chemo, Hep., AIDS, mental health diagnosis, sleep apnea, morbid obesity)? @ -[Chronic renal failure and diabetes Was patient admitted / discharged? Hospital course, mention meds given and route, prescriptions, significant lab abnormalities, going to OR and other pertinent info. @ -[Discharged Undiagnosed new problem with uncertain prognosis? @ -[No] Drug Therapy requiring intensive monitoring for toxicity (Heparin, Nitro, Insulin, Cardizem)? @ -[No] Were any procedures done? @ -[No] Diagnosis/symptom? @ -[Acute anemia Acute, or Chronic, or Acute on Chronic? @ -[Acute on chronic Uncomplicated (without systemic symptoms) or Complicated (systemic symptoms)? @ -[default] Side effects of treatment? @ -[No] Exacerbation, Progression, or Severe Exacerbation? @ -[No] Poses a threat to life or bodily function? How? (Chest pain, [place], NM, pneumonia, PE, COPD, DKA, ARF, appy, cholecystitis, CVA, Diverticulitis, Homicidal, Suicidal, threat to staff... and all critical care pts) @ -[No] (Subhash Garcia) - Lab Data Lab Results 09/12/22 09/12/22 09/12/22 Range/Units 16:24 16:24 16:24 WBC 5.2 (3.8-10.6) k/uL RBC 2.33 L (3.80-5.40) m/uL Hgb 6.9 L* D (11.4-16.0) gm/dL Hct 19.7 L* (34.0-46.0) % MCV 84.5 (80.0-100.0) fL MCH 29.4 (25.0-35.0) pg MCHC 34.8 (31.0-37.0) g/dL RDW 16.0 H (11.5-15.5) % Plt Count 226 (150-450) k/uL MPV 8.7 Neutrophils % 80 % Lymphocytes % 11 % Monocytes % 5 % Eosinophils % 3 % Basophils % 0 % Neutrophils # 4.2 (1.3-7.7) k/uL Lymphocytes # 0.6 L (1.0-4.8) k/uL Monocytes # 0.3 (0-1.0) k/uL Eosinophils # 0.1 (0-0.7) k/uL Basophils # 0.0 (0-0.2) k/uL Anisocytosis Slight Sodium 137 (137-145) mmol/L Potassium 3.8 (3.5-5.1) mmol/L Chloride 94 L (98-107) mmol/L Carbon Dioxide 35 H (22-30) mmol/L Anion Gap 8 mmol/L BUN 17 (7-17) mg/dL Creatinine 2.50 H (0.52-1.04) mg/dL Est GFR (CKD-EPI)AfAm 28 (>60 ml/min/1.73 sqM) Est GFR (CKD-EPI)NonAf 25 (>60 ml/min/1.73 sqM) Glucose 164 H (74-99) mg/dL Calcium 8.9 (8.4-10.2) mg/dL Total Bilirubin 0.7 (0.2-1.3) mg/dL AST 29 (14-36) U/L ALT 34 (4-34) U/L Alkaline Phosphatase 186 H (38-126) U/L NT-Pro-B Natriuret Pep 03236 pg/mL Total Protein 6.8 (6.3-8.2) g/dL Albumin 3.9 (3.5-5.0) g/dL Blood Type Blood Type Recheck Bld Type Recheck Status Antibody Screen Crossmatch Spec Expiration Date 09/12/22 Range/Units 16:25 WBC (3.8-10.6) k/uL RBC (3.80-5.40) m/uL Hgb (11.4-16.0) gm/dL Hct (34.0-46.0) % MCV (80.0-100.0) fL MCH (25.0-35.0) pg MCHC (31.0-37.0) g/dL RDW (11.5-15.5) % Plt Count (150-450) k/uL MPV Neutrophils % % Lymphocytes % % Monocytes % % Eosinophils % % Basophils % % Neutrophils # (1.3-7.7) k/uL Lymphocytes # (1.0-4.8) k/uL Monocytes # (0-1.0) k/uL Eosinophils # (0-0.7) k/uL Basophils # (0-0.2) k/uL Anisocytosis Sodium (137-145) mmol/L Potassium (3.5-5.1) mmol/L Chloride (98-107) mmol/L Carbon Dioxide (22-30) mmol/L Anion Gap mmol/L BUN (7-17) mg/dL Creatinine (0.52-1.04) mg/dL Est GFR (CKD-EPI)AfAm (>60 ml/min/1.73 sqM) Est GFR (CKD-EPI)NonAf (>60 ml/min/1.73 sqM) Glucose (74-99) mg/dL Calcium (8.4-10.2) mg/dL Total Bilirubin (0.2-1.3) mg/dL AST (14-36) U/L ALT (4-34) U/L Alkaline Phosphatase (38-126) U/L NT-Pro-B Natriuret Pep pg/mL Total Protein (6.3-8.2) g/dL Albumin (3.5-5.0) g/dL Blood Type O Negative Blood Type Recheck O Neg Bld Type Recheck Status No Antibody Screen NEGATIVE Crossmatch See Detail Spec Expiration Date 09/15/20222324 Disposition <Julian Olivares - Last Filed: 09/12/22 15:43> Is patient prescribed a controlled substance at d/c from ED?: No <Subhash Garcia - Last Filed: 09/15/22 11:02> Clinical Impression: Anemia Disposition: HOME SELF-CARE Condition: Good Instructions (If sedation given, give patient instructions): Anemia (ED) Referrals: Roque Buckner MD [Primary Care Provider] - 1-2 days
[2022-09-12 16:52] LABS: Anisocytosis Slight; Basophils % (A) 0 %; Eosinophils # (A) 0.1 k/uL (0-0.7); Eosinophils % (A) 3 %; Lymphocytes # (A) 0.6 k/uL (1.0-4.8); Lymphocytes % (A) 11 %; MCH 29.4 pg (25.0-35.0); MCHC 34.8 g/dL (31.0-37.0); MCV 84.5 fL (80.0-100.0); Mean Platelet Volume 8.7; Monocytes # (A) 0.3 k/uL (0-1.0); Monocytes % (A) 5 %; Neutrophils # (A) 4.2 k/uL (1.3-7.7); Neutrophils % (A) 80 %; Platelet Count 226 k/uL (150-450); RBC 2.33 m/uL (3.80-5.40); WBC 5.2 k/uL (3.8-10.6)
[2022-09-12 17:05] LABS: Albumin 3.9 g/dL (3.5-5.0); Calcium 8.9 mg/dL (8.4-10.2); Potassium 3.8 mmol/L (3.5-5.1); Total Bilirubin 0.7 mg/dL (0.2-1.3); Total Protein 6.8 g/dL (6.3-8.2)
[2022-09-12 17:09] LABS: HCT 19.7 % (34.0-46.0); HGB 6.9 gm/dL (11.4-16.0)
--- NOTE | 2022-09-12 18:10 | XR ---
EXAMINATION TYPE: XR chest 2V DATE OF EXAM: 09/12/2022 COMPARISON: 08/22/2022 INDICATION: Dialysis patient abnormal labs and weakness TECHNIQUE: Frontal and lateral views of the chest are obtained. FINDINGS: The heart size is mildly prominent. The pulmonary vasculature is somewhat prominent. Small right pleural effusion is present. There appears to be some prominence of the anterior rib ends bilaterally.. IMPRESSION: 1. Small right pleural effusion. 2. Cardiomegaly. 3. Vascular prominence at the upper limits for normal.
[2022-09-12] MEDS ORDERED: LORazepam 2 MG/ML INJ IV STA (21:33)
[2022-09-13] MEDS ORDERED: LORazepam 1 MG TAB PO STA (00:10)
[2022-09-13 00:27] VITALS: BP 185/79; PULSE 85; RESP 19; TEMP 97.4
== END 2022-09-13 01:00 | disposition home or self-care (01) ==
LOC: EC 15:22
DX: D64.9 Anemia, unspecified (principal); E11.22 Type 2 diabetes mellitus with diabetic chronic kidney disease; I12.0 Hypertensive chronic kidney disease with stage 5 chronic kidney disease or end stage renal disease; N18.6 End stage renal disease; Z86.73 Personal history of transient ischemic attack (TIA), and cerebral infarction without residual deficits; F32.A Depression, unspecified; F41.9 Anxiety disorder, unspecified; Z91.013 Allergy to seafood; Z88.8 Allergy status to other drugs, medicaments and biological substances; Z79.82 Long term (current) use of aspirin; Z79.4 Long term (current) use of insulin; Z79.899 Other long term (current) drug therapy; Z99.2 Dependence on renal dialysis
CPT/HCPCS: 36415; 86900; 86901; 83880; 80053; 85025; 86850; 86920; 71046; 99284; 96374; 36430; P9016; J2060

== ENCOUNTER 2022-09-14 00:30 | Inpatient (IN) | payer MEDICARE, OTHER ==
[2022-09-14] MEDS ORDERED: SODIUM CHLORIDE 0.9% 500 ML 250 ML IV ONE (00:55)
[2022-09-14 01:01] LABS: Basophils % (A) 1 %; Eosinophils # (A) 0.2 k/uL (0-0.7); Eosinophils % (A) 3 %; HCT 22.9 % (34.0-46.0); HGB 7.7 gm/dL (11.4-16.0); Lymphocytes # (A) 1.2 k/uL (1.0-4.8); Lymphocytes % (A) 22 %; MCH 29.1 pg (25.0-35.0); MCHC 33.5 g/dL (31.0-37.0); MCV 86.7 fL (80.0-100.0); Mean Platelet Volume 8.8; Monocytes # (A) 0.2 k/uL (0-1.0); Monocytes % (A) 3 %; Neutrophils # (A) 3.6 k/uL (1.3-7.7); Neutrophils % (A) 70 %; Platelet Count 218 k/uL (150-450); RBC 2.65 m/uL (3.80-5.40); RDW 15.9 % (11.5-15.5); WBC 5.2 k/uL (3.8-10.6)
[2022-09-14 01:14] LABS: Albumin 3.6 g/dL (3.5-5.0); Calcium 7.6 mg/dL (8.4-10.2); Total Bilirubin 0.7 mg/dL (0.2-1.3)
[2022-09-14 01:21] LABS: Potassium 6.2 mmol/L (3.5-5.1)
[2022-09-14] MEDS ORDERED: ALBUTEROL NEB (CONC) 2.5 MG/0.5 ML INHALATION ONE (01:21)
[2022-09-14] MEDS ORDERED: DEXTROSE 50% SYRINGE 50 ML IVP ONE (01:21)
[2022-09-14] MEDS ORDERED: CALCIUM GLUCONATE IN NACL 1 GM in SALINE 1 100ML.BAG IVPB ONE (01:21)
[2022-09-14] MEDS ORDERED: INSULIN REGULAR 100 UNIT/ML VIAL (IV) IV ONE (01:21)
[2022-09-14] MEDS ORDERED: SODIUM BICARB 8.4% 50 ML SYR (1 MEQ/ML) IV ONE (01:21)
[2022-09-14] MEDS ORDERED: SODIUM ZIRCONIUM CYCLOSILICATE 10 GM PACKET PO ONE (01:22)
--- NOTE | 2022-09-14 01:41 | ED ---
General Adult HPI - General Chief complaint: Dizziness Stated complaint: hypotensive Time Seen by Provider: 09/14/22 00:47 Source: patient, EMS, RN notes reviewed, old records reviewed Mode of arrival: EMS Limitations: no limitations - History of Present Illness Initial comments: Patient is a 31-year-old female well known to this emergency Department with a history of TIAs, diabetes, ESRD on hemodialysis, hypertension, prior cardiac arrest who presents emergency Department complaining of hypertension. Also states she feels "out of it." She states she checked her blood pressure earlier and then took her normal evening medications. States that her blood pressure dropped which is why she called EMS. States she did not take extra medications. Denies any chest pain or shortness of breath. Denies any abdominal pain, nausea, vomiting. Denies any lightheadedness. States she just feels slightly tired. His no other acute complaints at this time. Presents for further evaluation. States she has not missed dialysis. Last run per patient was yesterday. Presents for further evaluation at this time. - Related Data Home Medications Medication Instructions Recorded Confirmed carvediloL [Coreg] 25 mg PO BID 04/03/21 09/12/22 Escitalopram [Lexapro] 20 mg PO DAILY 04/17/21 09/12/22 Aspirin 81 mg PO DAILY 12/06/21 09/12/22 NIFEdipine XL [Procardia XL] 60 mg PO BID 12/06/21 09/12/22 Melatonin [Melatonin Dissolving 10 mg PO HS 12/21/21 09/12/22 Tablet] Lidocaine-Prilocaine Cream [Emla 1 applic TOPICAL MOWEFR PRN 02/09/22 09/12/22 Cream 2.5%/2.5%] buPROPion SR [Wellbutrin SR] 150 mg PO BID 02/09/22 09/12/22 DULoxetine HCL [Cymbalta] 30 mg PO DAILY 06/19/22 09/12/22 Ondansetron [Zofran] 4 mg PO TID PRN 06/19/22 09/12/22 Pantoprazole Sodium [Protonix] 20 mg PO DAILY 06/19/22 09/12/22 Torsemide [Demadex] 20 mg PO BID 06/19/22 09/12/22 rOPINIRole HCL [Requip] 1 mg PO TID 06/19/22 09/12/22 Albuterol Inhaler [Ventolin Hfa 2 puff INHALATION RT-QID PRN 07/11/22 09/12/22 Inhaler] Insulin Aspart [NovoLOG Flexpen] 6 units SQ AC-TID 07/11/22 09/12/22 Ergocalciferol (Vitamin D2) 1,250 mcg PO Q30D 08/14/22 09/12/22 [Drisdol (50,000 Iu)] Ofloxacin 0.3% Otic Soln [Floxin 5 - 10 drops LEFT EAR BID 09/12/22 09/12/22 0.3% Otic Soln] cloNIDine HCL 0.2 mg PO TID 09/12/22 09/12/22 hydrALAZINE HCL [Apresoline] 100 mg PO TID 09/12/22 09/12/22 Previous Rx's Medication Instructions Recorded Glucagon Emergency Kit 1 mg IM ONCE PRN #1 kit 06/15/21 Cyanocobalamin [Vitamin B-12] 1,000 mcg PO DAILY #60 tab 09/06/21 Atorvastatin [Lipitor] 40 mg PO DAILY 30 Days #30 tab 10/13/21 Calcium Acetate [PhosLo] 667 mg PO TID-W/MEALS 30 Days #90 10/13/21 tab LORazepam [Ativan] 1 mg PO TID PRN #90 tab 12/09/21 hydrOXYzine HCL [Atarax] 25 mg PO TID PRN #90 tab 12/09/21 traZODone HCL [Desyrel] 50 mg PO HS PRN #30 tab 04/19/22 Darbepoetin Tate [Aranesp] 40 mcg SQ Q7D each 07/02/22 Insulin Detemir (Levemir) [Levemir] 12 unit SQ DAILY@0700 #30 each 07/02/22 Allergies Allergy/AdvReac Type Severity Reaction Status Date / Time Fish Containing Products Allergy Rash/Hives Verified 09/12/22 20:39 [Fish] iodine Allergy Anaphylaxis Verified 09/12/22 20:39 Review of Systems ROS Statement: Those systems with pertinent positive or pertinent negative responses have been documented in the HPI. Review of Systems: CONST: Denies fever EYES: Denies blurry vision ENT: Denies nasal congestion C/V: Denies Chest pain RESP: Denies shortness of breath GI: Denies abdominal pain : Denies dysuria SKIN: Denies rash. MSK: Denies joint pain. NEURO: Denies headache ROS Other: All systems not noted in ROS Statement are negative. Past Medical History Past Medical History: CVA/TIA, Diabetes Mellitus, Dialysis, Eye Disorder, Hypertension, Renal Disease Additional Past Medical History / Comment(s): cardiac arrest, respiratory fail ure requiring mechanical ventilation, ESRD with hemodialysis M/W/F, IDDM type 1, DKA, neuropathy bilateral legs/feet, diabetic retinopathy/legally blind, RLS, gastritis, severe hypokalemia, fluid retention in abdomin/legs. History of Any Multi-Drug Resistant Organisms: None Reported Past Surgical History: Appendectomy, Section, Cholecystectomy Additional Past Surgical History / Comment(s): fistula left arm Past Anesthesia/Blood Transfusion Reactions: No Reported Reaction Additional Past Anesthesia/Blood Transfusion Reaction / Comment(s): Last PRBC transfusion 07/27/22 Past Psychological History: Anxiety, Depression Smoking Status: Never smoker Past Alcohol Use History: None Reported Past Drug Use History: None Reported - Past Family History Mother History Unknown: Yes Family Medical History: Cancer, Hypertension Additional Family Medical History / Comment(s): Thyroid cancer, bipolar Father History Unknown: Yes Family Medical History: Seizure Disorder Additional Family Medical History / Comment(s): Epilepsy General Exam - General Exam Comments Initial Comments: General: Appears in no acute distress. HEAD: Normal with no signs of head trauma. EYES: PERRLA, EOMI, conjunctiva normal, no discharge. ENT: Hearing grossly intact, normal oropharynx. RESPIRATORY: Clear breath sounds bilaterally. No wheezes, rales, or rhonchi. C/V: Bradycardia. S1 and S2 auscultated, peripheral pulses 2+ and intact throughout. Left upper extremity AV fistula has palpable thrill and audible bruit. ABD: Abd is soft, nontender, nondistended EXT: Normal range of motion, no obvious deformity SKIN: No rashes or lesions observed on exposed skin. NEURO: Alert and oriented 4. No focal deficits. Limitations: no limitations Course Vital Signs 09/14/22 09/14/22 09/14/22 00:34 02:31 02:49 Temperature 97.8 F Pulse Rate 56 L 59 L 56 L Respiratory 17 15 Rate Blood Pressure 78/52 91/55 O2 Sat by Pulse 100 100 Oximetry 04/19/23 04/19/23 04/19/23 03:41 06:22 06:27 Temperature Pulse Rate 58 L 57 L 66 Respiratory 16 Rate Blood Pressure O2 Sat by Pulse 95 Oximetry 09/14/22 06:32 Temperature 98.8 F Pulse Rate 56 L Respiratory 27 H Rate Blood Pressure 91/55 O2 Sat by Pulse 97 Oximetry Medical Decision Making - Medical Decision Making Was pt. sent in by a medical professional or institution ([facility] [place], LOGISTICS SPECIALIST, urgent care, hospital, or custodial...) When possible be specific @ -No Did you speak to anyone other than the patient for history (EMS, parent, family, police, friend...)? What history was obtained from this source @ -No Did you review nursing and triage notes (agree or disagree)? Why? @ -I reviewed and agree with nursing and triage notes Were old charts reviewed (outside hosp., previous admission, EMS record, old EKG, old radiological studies, urgent care reports/EKG's, custodial records)? Report findings @ -Old charts reviewed from recent visit on September 03 and 09/12/2022 Differential Diagnosis (chest pain, altered mental status, abdominal pain women, abdominal pain men, vaginal bleeding, weakness, fever, dyspnea, syncope, headache, dizziness, GI bleed, back pain, seizure, CVA, palpatations, mental health, musculoskeletal)? @ -Missed dialysis, electrolyte abnormalities, hypertension secondary to infection, hypotension secondary to antihypertensive medications, dehydration. This list is noninclusive EKG interpreted by me (3pts min.). @ -As above X-rays interpreted by me (1pt min.). @ -Chest x-ray reveals bilateral pulmonary vascular congestion concerning for Lyme overload. CT interpreted by me (1pt min.). @ -None done U/S interpreted by me (1pt. min.). @ -None done What testing was considered but not performed or refused? (CT, X-rays, U/S, labs)? Why? @ -None What meds were considered but not given or refused? Why? @ -None Did you discuss the management of the patient with other professionals (professionals i.e. [facility] [place], LOGISTICS SPECIALIST, lab, RT, psych nurse, social science instructor, retail general manager, teacher, transportation security officer, block and case maker)? Give summary @ -Discussed case with Dr. Buckner who accepted the patient under his service. Also discussed with on-call nephrology, Dr. Chase was in agreement with the hyperkalemia cocktail and will arrange for dialysis. Was smoking cessation discussed for >3mins.? @ -No Was critical care preformed (if so, how long)? @ -Yes, 35 minutes Were there social determinants of health that impacted care today? How? (Homelessness, low income, unemployed, alcoholism, drug addiction, tra nsportation, low edu. Level, literacy, decrease access to med. care, senior care, rehab)? @ -No Was there de-escalation of care discussed even if they declined (Discuss DNR or withdrawal of care, Hospice)? DNR status @ -No What co-morbidities impacted this encounter? (DM, HTN, Smoking, COPD, CAD, Cancer, CVA, ARF, Chemo, Hep., AIDS, mental health diagnosis, sleep apnea, morbid obesity)? @ -ESRD on hemodialysis Was patient admitted / discharged? Hospital course, mention meds given and rout e, prescriptions, significant lab abnormalities, going to OR and other pertinent info. @ -Based on the patient's presentation and physical exam, I do suspect her relative hypotension secondary to taking her antihypertensive medications, but cannot rule out other etiology at this time. We will obtain basic labs, EKG, chest x-ray. She received 250 mL of IV fluids from EMS and we will administer an additional 250 mL of IV fluids and reevaluate. She was in agreement this plan. Vital signs otherwise within acceptable limits. No respiratory distress. Appears to be at her baseline. Patient's blood pressure did stabilize with systolics in the 90s. I will avoid further fluid boluses at this time as the patient does appear fluid overloaded on chest x-ray. Laboratory remarkable for lactic acid is elevated of unknown etiology, which did clear on second testing. Patient has chronic anemia which is stable at hemoglobin was 7.7. Initial potassium is elevated to 6.2, with repeat at 5.2 following hypokalemia cocktail. BNP is elevated. Second potassium check was 5.2 as well. Patient remains asymptomatic at this time. Patient's otic her glucose was found to be 31 at one point but improved with oral fluid intake. EKG was within acceptable limits. I discussed results with the patient. She requires admission for dialysis. She was in agreement with this plan. We'll hold off on further fluid boluses as lactic acidosis has resolved likely secondary to dehydration and the absence of any infection, and her hyperkalemia is currently improved at this time. However she does require dialysis. She was in agreement this plan. I spoke with Dr. Buckner who accepted the patient. I spoke with Dr. Chase who was in agreement with the plan and will arrange for dialysis. Undiagnosed new problem with uncertain prognosis? @ -No Drug Therapy requiring intensive monitoring for toxicity (Heparin, Nitro, Insulin, Cardizem)? @ -No Were any procedures done? @ -No Diagnosis/symptom? @ -Hyperkalemia in the setting of ESRD on hemodialysis Acute, or Chronic, or Acute on Chronic? @ -Acute Uncomplicated (without systemic symptoms) or Complicated (systemic symptoms)? @ -Uncomplicated Side effects of treatment? @ -No Exacerbation, Progression, or Severe Exacerbation? @ -No Poses a threat to life or bodily function? How? (Chest pain, [place], [place], pneumonia, PE, COPD, DKA, ARF, appy, cholecystitis, CVA, Diverticulitis, Homicidal, Suicidal, threat to staff... and all critical care pts) @ -Yes, can result in arrhythmias which can result in cardiac arrest Diagnosis/symptom? @ -Hypotension, likely iatrogenic secondary to antihypertensive medications Acute, or Chronic, or Acute on Chronic? @ -Acute Uncomplicated (without systemic symptoms) or Complicated (systemic symptoms)? @ -Uncomplicated Side effects of treatment? @ -none Exacerbation, Progression, or Severe Exacerbation] @ -no Poses a threat to life or bodily function? @ -Potentially, if untreated - Lab Data Result diagrams: 09/14/22 00:42 09/14/22 04:30 Lab Results 09/14/22 09/14/22 09/14/22 Range/Units 00:42 00:42 00:42 WBC 5.2 (3.8-10.6) k/uL RBC 2.65 L (3.80-5.40) m/uL Hgb 7.7 L (11.4-16.0) gm/dL Hct 22.9 L (34.0-46.0) % MCV 86.7 (80.0-100.0) fL MCH 29.1 (25.0-35.0) pg MCHC 33.5 (31.0-37.0) g/dL RDW 15.9 H (11.5-15.5) % Plt Count 218 (150-450) k/uL MPV 8.8 Neutrophils % 70 % Lymphocytes % 22 % Monocytes % 3 % Eosinophils % 3 % Basophils % 1 % Neutrophils # 3.6 (1.3-7.7) k/uL Lymphocytes # 1.2 (1.0-4.8) k/uL Monocytes # 0.2 (0-1.0) k/uL Eosinophils # 0.2 (0-0.7) k/uL Basophils # 0.0 (0-0.2) k/uL Sodium 134 L (137-145) mmol/L Potassium 6.2 H* (3.5-5.1) mmol/L Chloride 93 L (98-107) mmol/L Carbon Dioxide 22 (22-30) mmol/L Anion Gap 19 mmol/L BUN 73 H (7-17) mg/dL Creatinine 6.17 H (0.52-1.04) mg/dL Est GFR (CKD-EPI)AfAm 10 (>60 ml/min/1.73 sqM) Est GFR (CKD-EPI)NonAf 8 (>60 ml/min/1.73 sqM) Glucose 175 H (74-99) mg/dL Lactic Ac Sepsis Rflx Plasma Lactic Acid Dio 4.4 H* (0.7-2.0) mmol/L Calcium 7.6 L (8.4-10.2) mg/dL Total Bilirubin 0.7 (0.2-1.3) mg/dL AST 29 (14-36) U/L ALT 26 (4-34) U/L Alkaline Phosphatase 166 H (38-126) U/L Troponin I (0.000-0.034) ng/mL NT-Pro-B Natriuret Pep pg/mL Total Protein 6.0 L (6.3-8.2) g/dL Albumin 3.6 (3.5-5.0) g/dL Acetone, Qual (Negative) 09/14/22 09/14/22 09/14/22 Range/Units 00:42 00:42 01:38 WBC (3.8-10.6) k/uL RBC (3.80-5.40) m/uL Hgb (11.4-16.0) gm/dL Hct (34.0-46.0) % MCV (80.0-100.0) fL MCH (25.0-35.0) pg MCHC (31.0-37.0) g/dL RDW (11.5-15.5) % Plt Count (150-450) k/uL MPV Neutrophils % % Lymphocytes % % Monocytes % % Eosinophils % % Basophils % % Neutrophils # (1.3-7.7) k/uL Lymphocytes # (1.0-4.8) k/uL Monocytes # (0-1.0) k/uL Eosinophils # (0-0.7) k/uL Basophils # (0-0.2) k/uL Sodium (137-145) mmol/L Potassium (3.5-5.1) mmol/L Chloride (98-107) mmol/L Carbon Dioxide (22-30) mmol/L Anion Gap mmol/L BUN (7-17) mg/dL Creatinine (0.52-1.04) mg/dL Est GFR (CKD-EPI)AfAm (>60 ml/min/1.73 sqM) Est GFR (CKD-EPI)NonAf (>60 ml/min/1.73 sqM) Glucose (74-99) mg/dL Lactic Ac Sepsis Rflx Y Plasma Lactic Acid Dio (0.7-2.0) mmol/L Calcium (8.4-10.2) mg/dL Total Bilirubin (0.2-1.3) mg/dL AST (14-36) U/L ALT (4-34) U/L Alkaline Phosphatase (38-126) U/L Troponin I 0.025 (0.000-0.034) ng/mL NT-Pro-B Natriuret Pep 40041 pg/mL Total Protein (6.3-8.2) g/dL Albumin (3.5-5.0) g/dL Acetone, Qual (Negative) 09/14/22 Range/Units 02:24 WBC (3.8-10.6) k/uL RBC (3.80-5.40) m/uL Hgb (11.4-16.0) gm/dL Hct (34.0-46.0) % MCV (80.0-100.0) fL MCH (25.0-35.0) pg MCHC (31.0-37.0) g/dL RDW (11.5-15.5) % Plt Count (150-450) k/uL MPV Neutrophils % % Lymphocytes % % Monocytes % % Eosinophils % % Basophils % % Neutrophils # (1.3-7.7) k/uL Lymphocytes # (1.0-4.8) k/uL Monocytes # (0-1.0) k/uL Eosinophils # (0-0.7) k/uL Basophils # (0-0.2) k/uL Sodium (137-145) mmol/L Potassium 5.2 H (3.5-5.1) mmol/L Chloride (98-107) mmol/L Carbon Dioxide (22-30) mmol/L Anion Gap mmol/L BUN (7-17) mg/dL Creatinine (0.52-1.04) mg/dL Est GFR (CKD-EPI)AfAm (>60 ml/min/1.73 sqM) Est GFR (CKD-EPI)NonAf (>60 ml/min/1.73 sqM) Glucose (74-99) mg/dL Lactic Ac Sepsis Rflx Plasma Lactic Acid Dio (0.7-2.0) mmol/L Calcium (8.4-10.2) mg/dL Total Bilirubin (0.2-1.3) mg/dL AST (14-36) U/L ALT (4-34) U/L Alkaline Phosphatase (38-126) U/L Troponin I (0.000-0.034) ng/mL NT-Pro-B Natriuret Pep pg/mL Total Protein (6.3-8.2) g/dL Albumin (3.5-5.0) g/dL Acetone, Qual Negative (Negative) - EKG Data -: EKG Interpreted by Me EKG Comments: 12-lead Electrocardiogram Interpretation Note EKG was reviewed and interpreted by myself. 12-lead ECG performed at 0044 is interpreted by me as revealing sinus bradycardia at a rate of 56 beats per mi nute. Right axis deviation. AR interval 132 ms, QRS duration 101 ms, QTc is 471 ms. There were no ST or T wave abnormalities to suggest myocardial ischemia or injury. R wave progression across the precordium was satisfactory. By my interpretation this EKG is non-diagnostic for acute ischemia. Disposition Clinical Impression: Dehydration, Hypokalemia, Hypotension Disposition: ADMITTED IP TO THIS HOSP Condition: Serious Time of Disposition: 03:15
[2022-09-14 02:39] LABS: Potassium 5.2 mmol/L (3.5-5.1)
--- NOTE | 2022-09-14 03:21 | XR ---
EXAM: XR Chest, 1 View CLINICAL HISTORY: ITS.REASON XR Reason: eval for chf TECHNIQUE: Frontal view of the chest. COMPARISON: No relevant prior studies available. IMPRESSION: Cardiomegaly with moderate vascular congestion.
[2022-09-14] MEDS ORDERED: NALOXONE 0.4 MG/ML 1 ML VIAL IV PRN (03:31)
[2022-09-14 04:26] LABS: Glucose,Whole Blood 31 mg/dL (70-110)
[2022-09-14 05:12] LABS: Glucose,Whole Blood 77 mg/dL (70-110)
[2022-09-14] MEDS ORDERED: IPRATROPIUM-ALBUTEROL 3 ML NEB INHALATION STA (05:34)
[2022-09-14] MEDS ORDERED: CALCIUM CHLORIDE 100 MG/ML 10 ML SYRINGE ONE (07:00)
[2022-09-14] MEDS ORDERED: EPINEPHrine 10 ML SYRINGE (0.1 MG/ML) ONE (07:00)
[2022-09-14] MEDS ORDERED: SODIUM BICARB 8.4% 50 ML SYR (1 MEQ/ML) ONE (07:00)
[2022-09-14 07:36] LABS: Glucose,Whole Blood 143 mg/dL (70-110)
--- NOTE | 2022-09-14 07:38 | ED ---
Medical Decision Making - Medical Decision Making Called by nursing staff to evaluate for unresponsive patient. Patient has no pulse and CPR was medially started. Patient did receive epinephrine 1, calcium 1, and 1 amp of sodium bicarb. Patient did have return of circulation after approximately 3-4 minutes. Patient is awake and alert at this time positive pulse. Additional labs ordered. Page placed to Dr. Trimble and Dr. Sutton Patient reevaluated. Vital signs stable. Case was discussed with Dr. Buckner. Case also discussed with Dr. Ordonez who will evaluate. Cardiology also placed on consult. Additional labs ordered. Total critical care time 31 minutes. - Lab Data Result diagrams: 09/14/22 00:42 09/14/22 04:30 Lab Results 09/14/22 09/14/22 09/14/22 Range/Units 00:42 00:42 00:42 WBC 5.2 (3.8-10.6) k/uL RBC 2.65 L (3.80-5.40) m/uL Hgb 7.7 L (11.4-16.0) gm/dL Hct 22.9 L (34.0-46.0) % MCV 86.7 (80.0-100.0) fL MCH 29.1 (25.0-35.0) pg MCHC 33.5 (31.0-37.0) g/dL RDW 15.9 H (11.5-15.5) % Plt Count 218 (150-450) k/uL MPV 8.8 Neutrophils % 70 % Lymphocytes % 22 % Monocytes % 3 % Eosinophils % 3 % Basophils % 1 % Neutrophils # 3.6 (1.3-7.7) k/uL Lymphocytes # 1.2 (1.0-4.8) k/uL Monocytes # 0.2 (0-1.0) k/uL Eosinophils # 0.2 (0-0.7) k/uL Basophils # 0.0 (0-0.2) k/uL Sodium 134 L (137-145) mmol/L Potassium 6.2 H* (3.5-5.1) mmol/L Chloride 93 L (98-107) mmol/L Carbon Dioxide 22 (22-30) mmol/L Anion Gap 19 mmol/L BUN 73 H (7-17) mg/dL Creatinine 6.17 H (0.52-1.04) mg/dL Est GFR (CKD-EPI)AfAm 10 (>60 ml/min/1.73 sqM) Est GFR (CKD-EPI)NonAf 8 (>60 ml/min/1.73 sqM) Glucose 175 H (74-99) mg/dL Lactic Ac Sepsis Rflx Plasma Lactic Acid Dio 4.4 H* (0.7-2.0) mmol/L Calcium 7.6 L (8.4-10.2) mg/dL Total Bilirubin 0.7 (0.2-1.3) mg/dL AST 29 (14-36) U/L ALT 26 (4-34) U/L Alkaline Phosphatase 166 H (38-126) U/L Troponin I (0.000-0.034) ng/mL NT-Pro-B Natriuret Pep pg/mL Total Protein 6.0 L (6.3-8.2) g/dL Albumin 3.6 (3.5-5.0) g/dL Acetone, Qual (Negative) 09/14/22 09/14/22 09/14/22 Range/Units 00:42 00:42 01:38 WBC (3.8-10.6) k/uL RBC (3.80-5.40) m/uL Hgb (11.4-16.0) gm/dL Hct (34.0-46.0) % MCV (80.0-100.0) fL MCH (25.0-35.0) pg MCHC (31.0-37.0) g/dL RDW (11.5-15.5) % Plt Count (150-450) k/uL MPV Neutrophils % % Lymphocytes % % Monocytes % % Eosinophils % % Basophils % % Neutrophils # (1.3-7.7) k/uL Lymphocytes # (1.0-4.8) k/uL Monocytes # (0-1.0) k/uL Eosinophils # (0-0.7) k/uL Basophils # (0-0.2) k/uL Sodium (137-145) mmol/L Potassium (3.5-5.1) mmol/L Chloride (98-107) mmol/L Carbon Dioxide (22-30) mmol/L Anion Gap mmol/L BUN (7-17) mg/dL Creatinine (0.52-1.04) mg/dL Est GFR (CKD-EPI)AfAm (>60 ml/min/1.73 sqM) Est GFR (CKD-EPI)NonAf (>60 ml/min/1.73 sqM) Glucose (74-99) mg/dL Lactic Ac Sepsis Rflx Y Plasma Lactic Acid Dio (0.7-2.0) mmol/L Calcium (8.4-10.2) mg/dL Total Bilirubin (0.2-1.3) mg/dL AST (14-36) U/L ALT (4-34) U/L Alkaline Phosphatase (38-126) U/L Troponin I 0.025 (0.000-0.034) ng/mL NT-Pro-B Natriuret Pep 42320 pg/mL Total Protein (6.3-8.2) g/dL Albumin (3.5-5.0) g/dL Acetone, Qual (Negative) 09/14/22 Range/Units 02:24 WBC (3.8-10.6) k/uL RBC (3.80-5.40) m/uL Hgb (11.4-16.0) gm/dL Hct (34.0-46.0) % MCV (80.0-100.0) fL MCH (25.0-35.0) pg MCHC (31.0-37.0) g/dL RDW (11.5-15.5) % Plt Count (150-450) k/uL MPV Neutrophils % % Lymphocytes % % Monocytes % % Eosinophils % % Basophils % % Neutrophils # (1.3-7.7) k/uL Lymphocytes # (1.0-4.8) k/uL Monocytes # (0-1.0) k/uL Eosinophils # (0-0.7) k/uL Basophils # (0-0.2) k/uL Sodium (137-145) mmol/L Potassium 5.2 H (3.5-5.1) mmol/L Chloride (98-107) mmol/L Carbon Dioxide (22-30) mmol/L Anion Gap mmol/L BUN (7-17) mg/dL Creatinine (0.52-1.04) mg/dL Est GFR (CKD-EPI)AfAm (>60 ml/min/1.73 sqM) Est GFR (CKD-EPI)NonAf (>60 ml/min/1.73 sqM) Glucose (74-99) mg/dL Lactic Ac Sepsis Rflx Plasma Lactic Acid Dio (0.7-2.0) mmol/L Calcium (8.4-10.2) mg/dL Total Bilirubin (0.2-1.3) mg/dL AST (14-36) U/L ALT (4-34) U/L Alkaline Phosphatase (38-126) U/L Troponin I (0.000-0.034) ng/mL NT-Pro-B Natriuret Pep pg/mL Total Protein (6.3-8.2) g/dL Albumin (3.5-5.0) g/dL Acetone, Qual Negative (Negative) Disposition Clinical Impression: Dehydration, Hypotension, Cardiac arrest Disposition: ADMITTED IP TO THIS HOSP Condition: Critical Is patient prescribed a controlled substance at d/c from ED?: No
[2022-09-14] MEDS ORDERED: MIDODRINE 5 MG TAB PO ONE (09:17)
[2022-09-14 10:00] LABS: Albumin 3.2 g/dL (3.5-5.0); Calcium 7.9 mg/dL (8.4-10.2); Magnesium 1.9 mg/dL (1.6-2.3); Total Bilirubin 0.9 mg/dL (0.2-1.3); Total Protein 5.5 g/dL (6.3-8.2)
[2022-09-14 10:04] LABS: Potassium 6.1 mmol/L (3.5-5.1)
[2022-09-14 10:11] LABS: Anisocytosis Slight; Basophils % (A) 0 %; Eosinophils % (A) 1 %; HCT 20.6 % (34.0-46.0); Lymphocytes # (A) 0.5 k/uL (1.0-4.8); Lymphocytes % (A) 7 %; MCH 27.8 pg (25.0-35.0); MCHC 32.7 g/dL (31.0-37.0); Monocytes # (A) 0.4 k/uL (0-1.0); Monocytes % (A) 5 %; Neutrophils # (A) 6.5 k/uL (1.3-7.7); Neutrophils % (A) 86 %; Platelet Count 191 k/uL (150-450); RBC 2.42 m/uL (3.80-5.40); WBC 7.6 k/uL (3.8-10.6)
[2022-09-14 10:14] LABS: HGB 6.7 gm/dL (11.4-16.0)
[2022-09-14 10:42] VITALS: TEMP 99.3
[2022-09-14 10:55] LABS: Glucose,Whole Blood 181 mg/dL (70-110)
[2022-09-14 10:59] LABS: Glucose,Whole Blood 158 mg/dL (70-110)
--- NOTE | 2022-09-14 11:11 | ED ---
Medical Decision Making - Medical Decision Making Called again to evaluate patient for cardiac arrest. No pulse. PEA on the monitor. Patient did receive epi 4 and sodium bicarb and calcium. Patient intubated by myself. I did provide additional 15 minutes of critical care. Dr. Shah did arrive and will assume care. - Lab Data Result diagrams: 09/14/22 08:30 09/14/22 08:30 Lab Results 09/14/22 09/14/22 09/14/22 Range/Units 00:42 00:42 00:42 WBC 5.2 (3.8-10.6) k/uL RBC 2.65 L (3.80-5.40) m/uL Hgb 7.7 L (11.4-16.0) gm/dL Hct 22.9 L (34.0-46.0) % MCV 86.7 (80.0-100.0) fL MCH 29.1 (25.0-35.0) pg MCHC 33.5 (31.0-37.0) g/dL RDW 15.9 H (11.5-15.5) % Plt Count 218 (150-450) k/uL MPV 8.8 Neutrophils % 70 % Lymphocytes % 22 % Monocytes % 3 % Eosinophils % 3 % Basophils % 1 % Neutrophils # 3.6 (1.3-7.7) k/uL Lymphocytes # 1.2 (1.0-4.8) k/uL Monocytes # 0.2 (0-1.0) k/uL Eosinophils # 0.2 (0-0.7) k/uL Basophils # 0.0 (0-0.2) k/uL Sodium 134 L (137-145) mmol/L Potassium 6.2 H* (3.5-5.1) mmol/L Chloride 93 L (98-107) mmol/L Carbon Dioxide 22 (22-30) mmol/L Anion Gap 19 mmol/L BUN 73 H (7-17) mg/dL Creatinine 6.17 H (0.52-1.04) mg/dL Est GFR (CKD-EPI)AfAm 10 (>60 ml/min/1.73 sqM) Est GFR (CKD-EPI)NonAf 8 (>60 ml/min/1.73 sqM) Glucose 175 H (74-99) mg/dL Lactic Ac Sepsis Rflx Plasma Lactic Acid Dio 4.4 H* (0.7-2.0) mmol/L Calcium 7.6 L (8.4-10.2) mg/dL Total Bilirubin 0.7 (0.2-1.3) mg/dL AST 29 (14-36) U/L ALT 26 (4-34) U/L Alkaline Phosphatase 166 H (38-126) U/L Troponin I (0.000-0.034) ng/mL NT-Pro-B Natriuret Pep pg/mL Total Protein 6.0 L (6.3-8.2) g/dL Albumin 3.6 (3.5-5.0) g/dL Acetone, Qual (Negative) 09/14/22 09/14/22 09/14/22 Range/Units 00:42 00:42 01:38 WBC (3.8-10.6) k/uL RBC (3.80-5.40) m/uL Hgb (11.4-16.0) gm/dL Hct (34.0-46.0) % MCV (80.0-100.0) fL MCH (25.0-35.0) pg MCHC (31.0-37.0) g/dL RDW (11.5-15.5) % Plt Count (150-450) k/uL MPV Neutrophils % % Lymphocytes % % Monocytes % % Eosinophils % % Basophils % % Neutrophils # (1.3-7.7) k/uL Lymphocytes # (1.0-4.8) k/uL Monocytes # (0-1.0) k/uL Eosinophils # (0-0.7) k/uL Basophils # (0-0.2) k/uL Sodium (137-145) mmol/L Potassium (3.5-5.1) mmol/L Chloride (98-107) mmol/L Carbon Dioxide (22-30) mmol/L Anion Gap mmol/L BUN (7-17) mg/dL Creatinine (0.52-1.04) mg/dL Est GFR (CKD-EPI)AfAm (>60 ml/min/1.73 sqM) Est GFR (CKD-EPI)NonAf (>60 ml/min/1.73 sqM) Glucose (74-99) mg/dL Lactic Ac Sepsis Rflx Y Plasma Lactic Acid Dio (0.7-2.0) mmol/L Calcium (8.4-10.2) mg/dL Total Bilirubin (0.2-1.3) mg/dL AST (14-36) U/L ALT (4-34) U/L Alkaline Phosphatase (38-126) U/L Troponin I 0.025 (0.000-0.034) ng/mL NT-Pro-B Natriuret Pep 11520 pg/mL Total Protein (6.3-8.2) g/dL Albumin (3.5-5.0) g/dL Acetone, Qual (Negative) 09/14/22 Range/Units 02:24 WBC (3.8-10.6) k/uL RBC (3.80-5.40) m/uL Hgb (11.4-16.0) gm/dL Hct (34.0-46.0) % MCV (80.0-100.0) fL MCH (25.0-35.0) pg MCHC (31.0-37.0) g/dL RDW (11.5-15.5) % Plt Count (150-450) k/uL MPV Neutrophils % % Lymphocytes % % Monocytes % % Eosinophils % % Basophils % % Neutrophils # (1.3-7.7) k/uL Lymphocytes # (1.0-4.8) k/uL Monocytes # (0-1.0) k/uL Eosinophils # (0-0.7) k/uL Basophils # (0-0.2) k/uL Sodium (137-145) mmol/L Potassium 5.2 H (3.5-5.1) mmol/L Chloride (98-107) mmol/L Carbon Dioxide (22-30) mmol/L Anion Gap mmol/L BUN (7-17) mg/dL Creatinine (0.52-1.04) mg/dL Est GFR (CKD-EPI)AfAm (>60 ml/min/1.73 sqM) Est GFR (CKD-EPI)NonAf (>60 ml/min/1.73 sqM) Glucose (74-99) mg/dL Lactic Ac Sepsis Rflx Plasma Lactic Acid Dio (0.7-2.0) mmol/L Calcium (8.4-10.2) mg/dL Total Bilirubin (0.2-1.3) mg/dL AST (14-36) U/L ALT (4-34) U/L Alkaline Phosphatase (38-126) U/L Troponin I (0.000-0.034) ng/mL NT-Pro-B Natriuret Pep pg/mL Total Protein (6.3-8.2) g/dL Albumin (3.5-5.0) g/dL Acetone, Qual Negative (Negative) Disposition Clinical Impression: Dehydration, Hypotension, Cardiac arrest, Respiratory failure Disposition: ADMITTED IP TO THIS HOSP Condition: Critical Is patient prescribed a controlled substance at d/c from ED?: No Procedures - Intubation Laryngoscope: Kalyan Size: 3 ET Tube Size: 7.5 Tube Placement Confirmation: visualized tube passing through cords, equal breath sounds bilaterally, no breath sounds over epigastrium, confirmation by c apnometry Intubation Complications: other (Patient did have emesis on original attempt. Patient was suctioned and repeat attempt successful.)
[2022-09-14] MEDS ORDERED: SODIUM CHLORIDE 0.9% IVPB ONE (11:22)
[2022-09-14] MEDS ORDERED: DESMOPRESSIN ACETATE IVPB ONE (11:22)
--- NOTE | 2022-09-14 11:23 | P.CRDCN ---
History of Present Illness Consult date: 09/14/22 History of present illness: HISTORY OF PRESENT ILLNESS: This is a 31-year-old female with a past medical history significant for end- stage renal disease on hemodialysis, diabetes, and hypertension. 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 We have been asked to see the patient in consultation for cardiac arrest. Patient examined at the bedside in the emergency room. Patient states that she took her blood pressure medications yesterday and became hypotensive afterwards. She states that she fell dizzy and felt like she was going to pass out. She called EMS. She states that EMS had to carry her out of the house because she passed out. The patient denies any chest pain or pressure. She reports feeling short of breath this morning. She also reports feeling nauseated. She complained her arms feeling numb and tingly. Patient states her last hemodialysis session was on Monday. She states she has not missed any sessions of hemodialysis. The patient did have a cardiac arrest after presenting to the emergency room. Patient apparently called for the nurse and stated she did not feel well and then became unresponsive. Patient was found to be in asystole. CPR was initiated. The patient did receive epinephrine 1, calcium, and sodium bicarb. According to the urinal, the patient received ROSC in approximately 3-4 minutes. * EKG reveals sinus bradycardia. Heart rate 56. Telemetry strips of cardiac arrest reviewed revealing asystole. * Chest xray cardiomegaly with moderate vascular congestion * Laboratory data: The WBC 7.6. Hemoglobin 6.7. Platelet count 191. Sodium 134. Potassium 6.1. BUN 79. Creatinine 5.25. Troponin 0.042. ProBNP 64,100. AST 313. ALT 123. * Current home cardiac medications include carvedilol 25 mg twice a day, Demadex 20 mg twice a day, Procardia 60 mg twice a day, Lipitor 40 mg daily, aspirin 81 mg daily, hydralazine 100 mg 3 times a day * Most recent echocardiogram obtained in July 2022 revealed ejection fraction 55-60%, no wall motion abnormalities, small pericardial effusion REVIEW OF SYSTEMS: At the time of my exam: CONSTITUTIONAL: Denies fever or chills. HEENT: Denies blurred vision, vision changes, or eye pain. Denies hemoptysis CARDIOVASCULAR: Denies chest pain. Denies orthopnea. Denies PND. Denies palpitations RESPIRATORY: Denies shortness of breath. GASTROINTESTINAL: Denies abdominal pain. + nausea or vomiting. HEMATOLOGIC: Denies bleeding disorders. GENITOURINARY: Denies any blood in urine. SKIN: Denies pruitis. Denies rash. PHYSICAL EXAM: VITAL SIGNS: Reviewed. GENERAL: Well-developed in no acute distress. HEENT: Head is normocephalic. Pupils are equal, round. Sclerae anicteric. Mucous membranes of the mouth are moist. Neck supple. No JVD or thyromegaly LUNGS: Respirations even and unlabored. Lungs essentially clear to auscultation bilaterally. HEART: Regular rate and rhythm. S1 and S2 heard. ABDOMEN: Soft. Nondistended. Nontender. EXTREMITIES: Normal range of motion. No clubbing or cyanosis. Peripheral pulses intact. No lower extremity edema NEUROLOGIC: Awake and alert. Oriented x 3. ASSESSMENT: Cardiac arrest, asystole Hyperkalemia End-stage renal disease on hemodialysis Abnormal troponins, secondary to ESRD Diabetes History of hypotension and bradycardia PLAN: No need to repeat echocardiogram as this was performed last month Hold antihypertensive medications Monitor potassium. Treatment per nephrology and internal medicine. Nephrology following. HD per nephrology. Further recommendations pending patient course Nurse practitioner note has been reviewed by physician. Signing provider agrees with the documented findings, assessment, and plan of care. Past Medical History Past Medical History: CVA/TIA, Diabetes Mellitus, Dialysis, Eye Disorder, Hypertension, Renal Disease Additional Past Medical History / Comment(s): cardiac arrest, respiratory failure requiring mechanical ventilation, ESRD with hemodialysis M/W/F, IDDM type 1, DKA, neuropathy bilateral legs/feet, diabetic retinopathy/legally blind, RLS, gastritis, severe hypokalemia, fluid retention in abdomin/legs. History of Any Multi-Drug Resistant Organisms: None Reported Past Surgical History: Appendectomy, Section, Cholecystectomy Additional Past Surgical History / Comment(s): fistula left arm Past Anesthesia/Blood Transfusion Reactions: No Reported Reaction Additional Past Anesthesia/Blood Transfusion Reaction / Comment(s): Last PRBC transfusion 07/27/22 Past Psychological History: Anxiety, Depression Smoking Status: Never smoker Past Alcohol Use History: None Reported Past Drug Use History: None Reported - Past Family History Mother History Unknown: Yes Family Medical History: Cancer, Hypertension Additional Family Medical History / Comment(s): Thyroid cancer, bipolar Father History Unknown: Yes Family Medical History: Seizure Disorder Additional Family Medical History / Comment(s): Epilepsy Medications and Allergies Home Medications Medication Instructions Recorded Confirmed Type carvediloL [Coreg] 25 mg PO BID 04/03/21 09/14/22 History Escitalopram [Lexapro] 20 mg PO DAILY 04/17/21 09/14/22 History Glucagon Emergency Kit 1 mg IM ONCE PRN #1 kit 06/15/21 09/14/22 Rx Cyanocobalamin [Vitamin B-12] 1,000 mcg PO DAILY #60 tab 09/06/21 09/14/22 Rx Atorvastatin [Lipitor] 40 mg PO DAILY 30 Days #30 tab 10/13/21 09/14/22 Rx Calcium Acetate [PhosLo] 667 mg PO TID-W/MEALS 30 Days #90 10/13/21 09/14/22 Rx tab Aspirin 81 mg PO DAILY 12/06/21 09/14/22 History NIFEdipine XL [Procardia XL] 60 mg PO BID 12/06/21 09/14/22 History LORazepam [Ativan] 1 mg PO TID PRN #90 tab 12/09/21 09/14/22 Rx hydrOXYzine HCL [Atarax] 25 mg PO TID PRN #90 tab 12/09/21 09/14/22 Rx Melatonin [Melatonin Dissolving 10 mg PO HS 12/21/21 09/14/22 History Tablet] Lidocaine-Prilocaine Cream [Emla 1 applic TOPICAL MOWEFR PRN 02/09/22 09/14/22 History Cream 2.5%/2.5%] buPROPion SR [Wellbutrin SR] 150 mg PO BID 02/09/22 09/14/22 History traZODone HCL [Desyrel] 50 mg PO HS PRN #30 tab 04/19/22 09/14/22 Rx DULoxetine HCL [Cymbalta] 30 mg PO DAILY 06/19/22 09/14/22 History Ondansetron [Zofran] 4 mg PO TID PRN 06/19/22 09/14/22 History Pantoprazole Sodium [Protonix] 20 mg PO DAILY 06/19/22 09/14/22 History Torsemide [Demadex] 20 mg PO BID 06/19/22 09/14/22 History rOPINIRole HCL [Requip] 1 mg PO TID 06/19/22 09/14/22 History Darbepoetin Tate [Aranesp] 40 mcg SQ Q7D each 07/02/22 09/14/22 Rx Insulin Detemir (Levemir) [Levemir] 12 unit SQ DAILY@0700 #30 each 07/02/22 09/14/22 Rx Albuterol Inhaler [Ventolin Hfa 2 puff INHALATION RT-QID PRN 07/11/22 09/14/22 History Inhaler] Insulin Aspart [NovoLOG Flexpen] 6 units SQ AC-TID 07/11/22 09/14/22 History Ergocalciferol (Vitamin D2) 1,250 mcg PO Q30D 08/14/22 09/14/22 History [Drisdol (50,000 Iu)] Ofloxacin 0.3% Otic Soln [Floxin 5 - 10 drops LEFT EAR BID 09/12/22 09/14/22 His tory 0.3% Otic Soln] cloNIDine HCL 0.2 mg PO TID 09/12/22 09/14/22 History hydrALAZINE HCL [Apresoline] 100 mg PO TID 09/12/22 09/14/22 History Allergies Allergy/AdvReac Type Severity Reaction Status Date / Time Fish Containing Products Allergy Rash/Hives Verified 09/14/22 07:45 [Fish] iodine Allergy Anaphylaxis Verified 09/14/22 07:45 Physical Exam Vitals: Vital Signs Temp Pulse Resp BP Pulse Ox 09/14/22 10:40 99.3 F 75 18 93/56 100 09/14/22 10:09 68 18 117/63 98 09/14/22 09:07 63 18 103/67 97 09/14/22 06:32 98.8 F 56 L 27 H 91/55 97 09/14/22 06:27 66 09/14/22 06:22 57 L 09/14/22 03:41 58 L 16 95 09/14/22 02:49 56 L 09/14/22 02:31 59 L 15 91/55 100 09/14/22 00:34 97.8 F 56 L 17 78/52 100 Intake and Output 09/13/22 09/14/22 09/14/22 22:59 06:59 14:59 Other: Weight 47.627 kg Results 09/14/22 08:30 09/14/22 08:30 Cardiac Enzymes 09/14/22 09/14/22 09/14/22 Range/Units 00:42 00:42 08:30 AST 29 313 H (14-36) U/L Troponin I 0.025 (0.000-0.034) ng/mL 09/14/22 Range/Units 08:30 AST (14-36) U/L Troponin I 0.042 H* (0.000-0.034) ng/mL CBC 09/14/22 09/14/22 Range/Units 00:42 08:30 WBC 5.2 7.6 (3.8-10.6) k/uL RBC 2.65 L 2.42 L (3.80-5.40) m/uL Hgb 7.7 L 6.7 L* (11.4-16.0) gm/dL Hct 22.9 L 20.6 L (34.0-46.0) % Plt Count 218 191 (150-450) k/uL Comprehensive Metabolic Panel 09/14/22 09/14/22 09/14/22 Range/Units 00:42 02:24 04:30 Sodium 134 L (137-145) mmol/L Potassium 6.2 H* 5.2 H 5.2 H (3.5-5.1) mmol/L Chloride 93 L (98-107) mmol/L Carbon Dioxide 22 (22-30) mmol/L BUN 73 H (7-17) mg/dL Creatinine 6.17 H (0.52-1.04) mg/dL Glucose 175 H (74-99) mg/dL Calcium 7.6 L (8.4-10.2) mg/dL AST 29 (14-36) U/L ALT 26 (4-34) U/L Alkaline Phosphatase 166 H (38-126) U/L Total Protein 6.0 L (6.3-8.2) g/dL Albumin 3.6 (3.5-5.0) g/dL 09/14/22 Range/Units 08:30 Sodium 134 L (137-145) mmol/L Potassium 6.1 H* (3.5-5.1) mmol/L Chloride 94 L (98-107) mmol/L Carbon Dioxide 25 (22-30) mmol/L BUN 79 H (7-17) mg/dL Creatinine 5.25 H (0.52-1.04) mg/dL Glucose 146 H (74-99) mg/dL Calcium 7.9 L (8.4-10.2) mg/dL AST 313 H (14-36) U/L ALT 123 H (4-34) U/L Alkaline Phosphatase 227 H (38-126) U/L Total Protein 5.5 L (6.3-8.2) g/dL Albumin 3.2 L (3.5-5.0) g/dL Current Medications Generic Name Dose Route Start Last Admin Trade Name Freq PRN Reason Stop Dose Admin Naloxone HCl 0.2 mg 09/14/22 03:31 Naloxone 0.4 Mg/Ml 1 Ml Vial IV Q2M PRN Opioid Reversal Intake and Output 09/13/22 09/14/22 09/14/22 22:59 06:59 14:59 Other: Weight 47.627 kg 09/14/22 08:30 09/14/22 08:30
--- NOTE | 2022-09-14 11:24 | P.NPCON ---
History of Present Illness - Reason for Consult end stage renal disease - History of Present Illness Reason for consultation: End-stage renal disease History of present illness: Patient is a 31-year-old female seen in the patient for end-stage renal disease. She is maintained on hemodialysis on Monday schedule. Patient denies missing any dialysis treatments. Patient states she came to the hospital Monday evening to get a unit of blood. Patient says yesterday evening her blood pressure was in the 150s and she took her blood pressure meds. Last night she felt weak and dizzy and her blood pressure was low in the systolic 70s. Patient's blood pressure has been very labile and her blood sugars have been labile as well. Patient's potassium was 6.1 admission which was medically treated and came down to 5.2 and is back up to 6.1 this morning. She's currently receiving hemodialysis. Patient feels short of breath. She is usually able to tolerate 4-5 L ultrafiltration. Patient did receive midodrine prior to dialysis and her most recent blood pressure is 93/56. Patient did have a brief cardiac arrest on admission but downtime of about 2 minutes. She required CPR with norepinephrine or shocks. Vital signs are stable. Blood pressure on the lower side. General: No acute distress. HEENT: Head exam is unremarkable. LUNGS: No audible rhonchi or wheezes. HEART: Rate and Rhythm are regular. ABDOMEN: Nontender. EXTREMITITES: No edema. Past Medical History Past Medical History: CVA/TIA, Diabetes Mellitus, Dialysis, Eye Disorder, Hypertension, Renal Disease Additional Past Medical History / Comment(s): cardiac arrest, respiratory failure requiring mechanical ventilation, ESRD with hemodialysis M/W/F, IDDM type 1, DKA, neuropathy bilateral legs/feet, diabetic retinopathy/legally blind, RLS, gastritis, severe hypokalemia, fluid retention in abdomin/legs. History of Any Multi-Drug Resistant Organisms: None Reported Past Surgical History: Appendectomy, Section, Cholecystectomy Additional Past Surgical History / Comment(s): fistula left arm Past Anesthesia/Blood Transfusion Reactions: No Reported Reaction Additional Past Anesthesia/Blood Transfusion Reaction / Comment(s): Last PRBC transfusion 07/27/22 Past Psychological History: Anxiety, Depression Smoking Status: Never smoker Past Alcohol Use History: None Reported Past Drug Use History: None Reported - Past Family History Mother History Unknown: Yes Family Medical History: Cancer, Hypertension Additional Family Medical History / Comment(s): Thyroid cancer, bipolar Father History Unknown: Yes Family Medical History: Seizure Disorder Additional Family Medical History / Comment(s): Epilepsy Medications and Allergies Home Medications Medication Instructions Recorded Confirmed Type carvediloL [Coreg] 25 mg PO BID 04/03/21 09/14/22 History Escitalopram [Lexapro] 20 mg PO DAILY 04/17/21 09/14/22 History Glucagon Emergency Kit 1 mg IM ONCE PRN #1 kit 06/15/21 09/14/22 Rx Cyanocobalamin [Vitamin B-12] 1,000 mcg PO DAILY #60 tab 09/06/21 09/14/22 Rx Atorvastatin [Lipitor] 40 mg PO DAILY 30 Days #30 tab 10/13/21 09/14/22 Rx Calcium Acetate [PhosLo] 667 mg PO TID-W/MEALS 30 Days #90 10/13/21 09/14/22 Rx tab Aspirin 81 mg PO DAILY 12/06/21 09/14/22 History NIFEdipine XL [Procardia XL] 60 mg PO BID 12/06/21 09/14/22 History LORazepam [Ativan] 1 mg PO TID PRN #90 tab 12/09/21 09/14/22 Rx hydrOXYzine HCL [Atarax] 25 mg PO TID PRN #90 tab 12/09/21 09/14/22 Rx Melatonin [Melatonin Dissolving 10 mg PO HS 12/21/21 09/14/22 History Tablet] Lidocaine-Prilocaine Cream [Emla 1 applic TOPICAL MOWEFR PRN 02/09/22 09/14/22 History Cream 2.5%/2.5%] buPROPion SR [Wellbutrin SR] 150 mg PO BID 02/09/22 09/14/22 History traZODone HCL [Desyrel] 50 mg PO HS PRN #30 tab 04/19/22 09/14/22 Rx DULoxetine HCL [Cymbalta] 30 mg PO DAILY 06/19/22 09/14/22 History Ondansetron [Zofran] 4 mg PO TID PRN 06/19/22 09/14/22 History Pantoprazole Sodium [Protonix] 20 mg PO DAILY 06/19/22 09/14/22 History Torsemide [Demadex] 20 mg PO BID 06/19/22 09/14/22 History rOPINIRole HCL [Requip] 1 mg PO TID 06/19/22 09/14/22 History Darbepoetin Tate [Aranesp] 40 mcg SQ Q7D each 07/02/22 09/14/22 Rx Insulin Detemir (Levemir) [Levemir] 12 unit SQ DAILY@0700 #30 each 07/02/22 09/14/22 Rx Albuterol Inhaler [Ventolin Hfa 2 puff INHALATION RT-QID PRN 07/11/22 09/14/22 History Inhaler] Insulin Aspart [NovoLOG Flexpen] 6 units SQ AC-TID 07/11/22 09/14/22 History Ergocalciferol (Vitamin D2) 1,250 mcg PO Q30D 08/14/22 09/14/22 History [Drisdol (50,000 Iu)] Ofloxacin 0.3% Otic Soln [Floxin 5 - 10 drops LEFT EAR BID 09/12/22 09/14/22 History 0.3% Otic Soln] cloNIDine HCL 0.2 mg PO TID 09/12/22 09/14/22 History hydrALAZINE HCL [Apresoline] 100 mg PO TID 09/12/22 09/14/22 History Allergies Allergy/AdvReac Type Severity Reaction Status Date / Time Fish Containing Products Allergy Rash/Hives Verified 09/14/22 07:45 [Fish] iodine Allergy Anaphylaxis Verified 09/14/22 07:45 Physical Exam Vitals: Vital Signs Temp Pulse Resp BP Pulse Ox 09/14/22 10:40 99.3 F 75 18 93/56 100 09/14/22 10:09 68 18 117/63 98 09/14/22 09:07 63 18 103/67 97 09/14/22 06:32 98.8 F 56 L 27 H 91/55 97 09/14/22 06:27 66 09/14/22 06:22 57 L 09/14/22 03:41 58 L 16 95 09/14/22 02:49 56 L 09/14/22 02:31 59 L 15 91/55 100 09/14/22 00:34 97.8 F 56 L 17 78/52 100 Intake and Output 09/13/22 09/14/22 09/14/22 22:59 06:59 14:59 Other: Weight 47.627 kg Results - Lab Results Most recent lab results Calcium 7.9 mg/dL (8.4-10.2) L 09/14/22 08:30 Magnesium 1.9 mg/dL (1.6-2.3) 09/14/22 08:30 09/14/22 08:30 09/14/22 08:30 Assessment and Plan Plan: Assessment: 1. End-stage renal disease and 17 on hemodialysis on Monday schedule. 2. Hyperkalemia secondary to chronic kidney disease and concern for underlying GI bleed. 3. Anemia of chronic kidney disease with concern for acute blood loss anemia. Patient recently received a transfusion about 2 days ago and hemoglobin today is again 6.7. 4. Volume overload. 5. Diabetes mellitus. 6. Hypertension with chronic kidney disease. Blood pressure currently on the lower side. 7. Acute on chronic diastolic CHF. Plan: Currently seen while undergoing hemodialysis. UF as able to tolerate. Midodrine PRN bp <100/60. Hold antihypertensives. Patient does follow parameters for anti-hypertensives at home. Patient states she does not take meds if blood pressure is less than systolic 115. Transfuse 1 unit of blood today. Add Aranesp. IV DDAVP 1 today. Consider surgery/GI eval. Thank you for the consultation. I will continue to follow the patient with you during her hospital stay.
[2022-09-14] MEDS ORDERED: DARBEPOETIN ALFA 40 MCG/0.4 ML SYRINGE SQ SCH (12:00)
[2022-09-14 14:07] VITALS: BP 0/0; PULSE 0; RESP 0
--- NOTE | 2022-09-14 15:56 | P.EN ---
Patient coded at 1045, code called overhead. By the time I arrived, patient had already received 2 x epi and [address] Jama intubated the patient at 1055. Patient had significant coffee ground emesis during intubation. 4x epi given after. Pulse was PEA each time. Patient did get ROSC a few times. Again, went into PEA. Family was called, and mother made the patient DNR. Patient at 1113.
--- NOTE | 2022-09-15 22:23 | HP ---
HISTORY AND PHYSICAL CHIEF COMPLAINT: Stage 5 renal disease, uncontrolled hypertension, uncontrolled diabetes, and elevated potassium. HISTORY OF PRESENT ILLNESS: This lady came back into the emergency room and was found to have a potassium of over 8. She was started on management for her hyperkalemia when she had a cardiac arrest. She was resuscitated and seems stable. She did not have to be intubated. She remained awake and alert and did not have any complaints of headache, chest pain, shortness of breath, etc. When she rested, her potassium was just over 5. Review of systems, past medical history, family history, and personal and social histories were all obtained through the emergency room and are essentially unchanged from her usual presenting signs, symptoms, and medications. PHYSICAL EXAMINATION: VITAL SIGNS: Blood pressure is 122/64 with a pulse of 80, respirations of 36, and she is afebrile. GENERAL: She appeared to be the same as usual, which was pale and dehydrated. HEAD, EARS, EYES, NOSE, MOUTH AND THROAT: Unchanged. CHEST: Clear. CARDIAC: Demonstrates sinus tachycardia. ABDOMEN: Soft, nontender. EXTREMITIES: Normal. NEUROLOGICAL: She is awake and alert. ASSESSMENT: She is admitted to the hospital with diagnoses of: 1. Chronic renal failure. 2. Hyperkalemia. 3. Cardiorespiratory arrest. 4. Uncontrolled type 1 insulin-dependent diabetes mellitus. 5. Uncontrolled hypertension. 6. Amblyopia. PLAN: ICU management with frequent monitoring of her laboratory studies, electrolytes, vital signs, and neurologic status. MMODL / IJN: [id number] /
--- NOTE | 2022-09-15 22:29 | DS ---
DISCHARGE SUMMARY CHIEF COMPLAINT: Stage 5 CKD with hyperkalemia and cardiac arrest. HISTORY OF PRESENT ILLNESS AND PHYSICAL EXAMINATION: Details of this lady's history and physical can be found in the initial workup. LABORATORY STUDIES: While she was in the hospital, she had laboratory studies, which can be found in the laboratory section of her chart. COURSE IN THE HOSPITAL: After she arrived to the emergency room, she was given emergency treatment for hyperkalemia. Nephrology was contacted and they planned on dialyzing her the next day. However, she had a cardiac arrest in the emergency room from which she was resuscitated and woke up fully awake and alert without any neurologic consequences. At that point, her potassium was around 5. However, she arrested once again and could not be resuscitated. FINAL DIAGNOSES: 1. Atherosclerotic cardiovascular disease. 2. Stage 5 chronic kidney disease, on dialysis. 3. Uncontrolled type 1 insulin-dependent diabetes mellitus. 4. Uncontrolled hypertension. 5. Retinopathy and amblyopia, both eyes. 6. Depression. OPERATIONS: None. CONSULTATIONS: None. She . MMODL / IJN: [id number] /
== END 2022-09-14 14:05 | disposition expired | DRG 640 ==
LOC: EC 00:30 → 3SCARD 03:31 → 2SICU 07:40
PROVIDERS: ADMIT Family Medicine; ATTEND Family Medicine
PROC: 0BH17EZ Insertion of Endotracheal Airway into Trachea, Via Natural or Artificial Opening (ICD-10-PCS; principal; 2022-09-14)
PROC: 5A12012 Performance of Cardiac Output, Single, Manual (ICD-10-PCS; 2022-09-14)
PROC: 5A1D70Z Performance of Urinary Filtration, Intermittent, Less than 6 Hours Per Day (ICD-10-PCS; 2022-09-14)
DX: E87.5 Hyperkalemia (principal); I50.33 Acute on chronic diastolic (congestive) heart failure; N18.6 End stage renal disease; J96.90 Respiratory failure, unspecified, unspecified whether with hypoxia or hypercapnia; I13.2 Hypertensive heart and chronic kidney disease with heart failure and with stage 5 chronic kidney disease, or end stage renal disease; T82.858A Stenosis of other vascular prosthetic devices, implants and grafts, initial encounter; I95.9 Hypotension, unspecified; Z66 Do not resuscitate; I46.8 Cardiac arrest due to other underlying condition; G25.81 Restless legs syndrome; E10.42 Type 1 diabetes mellitus with diabetic polyneuropathy; K29.70 Gastritis, unspecified, without bleeding; E87.70 Fluid overload, unspecified; Z79.4 Long term (current) use of insulin; Z79.82 Long term (current) use of aspirin; Z79.899 Other long term (current) drug therapy; Z86.73 Personal history of transient ischemic attack (TIA), and cerebral infarction without residual deficits; Z99.2 Dependence on renal dialysis; E86.0 Dehydration; E10.22 Type 1 diabetes mellitus with diabetic chronic kidney disease; E10.319 Type 1 diabetes mellitus with unspecified diabetic retinopathy without macular edema; H53.003 Unspecified amblyopia, bilateral
CPT/HCPCS: 36415; 71045; 80053; 82009; 83605; 83735; 83880; 84132; 84484; 85025; 86850; 86870; 86880; 86900; 86901; 90935; 92950; 93005; 94640; 96361; 96374; 96375; 99291